=== PATIENT | female | born 1970 | race Caucasian/White ===

== ENCOUNTER 2020-04-04 12:46 | Outpatient (REF) | payer OTHER, SELFPAY ==
--- NOTE | 2020-05-03 | PFT_ITS ---
Forced vital capacity; FEV1, WOT00-00, and MVV are all markedly decreased. Post bronchodilator therapy, there is no significant change. Total lung capacity is slightly decreased. Residual volume normal. Diffusion capacity moderately decreased. CONCLUSION: Chronic obstructive pulmonary disease, severe, no significant response to bronchodilator therapy. There may be a mild degree of restrictive pulmonary disease as well. MD KAL Maldonado/ZABRINA / [id number]
== END 2020-04-04 12:47 | disposition home or self-care (01) ==
LOC: HO.RESP 12:46
PROVIDERS: PCP Internal Medicine Pulmonary Disease; Visit Provider Internal Medicine Pulmonary Disease
DX: J44.9 Chronic obstructive pulmonary disease, unspecified (principal); J96.20 Acute and chronic respiratory failure, unspecified whether with hypoxia or hypercapnia; R11.2 Nausea with vomiting, unspecified
CPT/HCPCS: 94060; 94727; 94729

== ENCOUNTER 2020-04-12 09:31 | Inpatient (IN) | payer OTHER, SELFPAY ==
[2020-04-12] VITALS (20 sets, daily range): BP systolic 125–216; BP diastolic 67–112; PULSE 92–117; RESP 14–28; TEMP 36.4–36.7; O2SAT 91–99; BMI 39.5; BMI 38.0
--- NOTE | 2020-04-12 09:42 | ED.SOB ---
HPI - SOB/Dyspnea General Chief Complaint: Dyspnea Stated Complaint: SOB X'S 2 DAYS W/ R RIB PAIN Time Seen by Provider: 04/12/20 09:42 Source: patient and EMS Mode of arrival: EMS Limitations: no limitations History of Present Illness MD elicited complaint: shortness of breath Pertinent past history: COPD Onset (ago): day(s) (2) Context: medication noncompliance, smoke/fume exposure and anxiety Timing: constant Severity: moderate Exacerbating factors: exertion and coughing Relieving factors: rest and bronchodilators Known history of: COPD Associated symptoms: cough, wheezing and sputum production Treatment prior to arrival: bronchodilator and other (EMS notes 99% on RA, walked out to ambulance smoking) Related Data Home Medications Medication Instructions Recorded Confirmed albuterol sulfate 90 mcg/actuation 1 puff INHALATION Q4H g 04/08/20 04/09/20 aerosol inhaler alpha lipoic acid 200 mg tablet 200 mg PO DAILY 04/08/20 04/09/20 aspirin 81 mg tablet 81 mg PO DAILY 04/08/20 04/09/20 atorvastatin 80 mg tablet 80 mg PO DAILY 04/08/20 04/09/20 cetirizine 10 mg tablet 10 mg PO DAILY 04/08/20 04/09/20 cholecalciferol (vitamin D3) 50 50 mcg PO DAILY 04/08/20 04/09/20 mcg (2,000 unit) capsule ipratropium 0.5 mg-albuterol 3 mg 3 ml INHALATION Q6H PRN ml 04/08/20 04/09/20 (2.5 mg base)/3 mL nebulization soln metformin 500 mg tablet 500 mg PO DAILY 04/08/20 04/09/20 montelukast 10 mg tablet 10 mg PO DAILY 04/08/20 04/09/20 pantoprazole 40 mg tablet,delayed 40 mg PO BID tab 04/08/20 04/09/20 release carisoprodol 350 mg PO DAILY PRN 04/12/20 dicyclomine 10 mg PO QID PRN 04/12/20 04/12/20 dulaglutide [Trulicity] 0.75 mg SUBCUT QWEEK 04/12/20 04/12/20 furosemide 20 mg PO BID 04/12/20 04/12/20 ibuprofen 800 mg PO BID PRN 04/12/20 04/12/20 lubiprostone [Amitiza] 24 mcg PO BID 04/12/20 04/12/20 metformin 500 mg PO DAILY 04/12/20 04/12/20 prednisone PO PER PKG DIR 04/12/20 tiotropium-olodaterol [Stiolto 2 puff INHALATION DAILY 04/12/20 04/12/20 Respimat] tizanidine 4 mg PO BID PRN 04/12/20 04/12/20 venlafaxine 225 mg PO DAILY 04/12/20 04/12/20 Previous Rx's Medication Instructions Recorded bupropion HCl 300 mg 24 hr tablet, 300 mg PO QAM 30 Days #30 tab 04/04/20 extended release gabapentin 600 mg tablet 600 mg PO QID 30 Days #120 tab 04/04/20 losartan 25 mg tablet 25 mg PO DAILY 90 Days #90 tab 04/04/20 levofloxacin 750 mg tablet 750 mg PO DAILY 7 Days #7 tab 04/08/20 Allergies Allergy/AdvReac Type Severity Reaction Status Date / Time varenicline [From CHANTIX] Allergy Severe ANAPHYLAXIS Unverified 03/17/20 15:56 azithromycin Allergy Unknown Verified 01/27/20 00:00 barium sulfate Allergy Unknown angioedema Verified 01/27/20 00:00 cetirizine Allergy Unknown Verified 01/27/20 00:00 doxycycline Allergy Unknown Verified 01/27/20 00:00 famotidine Allergy Unknown Verified 01/27/20 00:00 linaclotide [Linzess] Allergy Unknown Verified 01/27/20 00:00 Review of Systems Review of Systems: Constitutional : No Fever, No Chills ENT/Mouth : No sore throat, No Rhinorrhea, No Swallowing Difficulty Eyes: No Eye Pain, No Swelling, No Redness Cardiovascular : No Chest Pain, positive SOB, No Orthopnea, no Edema Respiratory : positive Cough, positive Sputum, positive Wheezing, positive dyspnea Gastrointestinal : No Nausea, No Vomiting, No Diarrhea, No abdominal Pain, No Hematochezia, No Melena Genitourinary : No Dysuria, No Urinary Frequency, No Hematuria Musculoskeletal : No joint pain, No Myalgias Skin : No Skin Lesions, No rash Neuro : No Weakness, No Numbness, No Dizziness, No Headache Psych : No Anxiety/Panic, No Depression Heme/Lymph: No Bruising, No Lymphadenopathy Endocrine : No Polyuria, No Polydipsia All other systems reviewed and are negative [facility] Past Medical History Medical History (Updated 04/12/20 @ 12:19 by Amber Reid DO) COPD (chronic obstructive pulmonary disease) Diabetes mellitus GERD (gastroesophageal reflux disease) HTN (hypertension) Obesity (BMI 30-39.9) Obstructive sleep apnea Social History Social History (Updated 04/09/20 @ 14:53 by Adelso Cordero MD) Alcohol intake: never Smoking Status: Current every day smoker Tobacco Type: Cigarette Years Smoked: 44 Advance Directives: No Advance Directives Information Provided: No Physical Exam Vital Signs: Vital Signs: Vital Signs Temp Pulse Resp BP Pulse Ox 04/12/20 12:14 92 18 139/67 94 04/12/20 10:48 100 20 182/77 H 96 04/12/20 09:50 28 H 04/12/20 09:39 97.6 F 93 16 99 Body Mass Index 38.0 Appearance: Alert. Oriented X3. mild acute distress. anxious intermittent shaking and tremors of both hands Eyes: Pupils equal, round and reactive to light. ENT: Pharynx normal. Neck: Normal inspection. Neck supple. CVS: tachycardic heart rate and rhythm. Pulses normal. Respiratory: mild respiratory distress. Breath sounds decreased with exp wheezes, tachypnea Abdomen: Soft and nontender. obese Skin: Skin warm and dry. Normal skin color. Normal skin turgor. Extremities: No lower extremity edema. No calf ttp Neuro: Oriented X 3. No motor deficit. No sensory deficit. Course Reevaluation(s) Reevaluation #1: slightly more somnolent and jumpy will place on bipap and observe, compensated ABG Time: 10:24 Time: 11:23 Reevaluation #3: I feel like the way the patient is presenting and more somnolent (she blames her baclofen she will likely not come off bipap) will repeat ABG and discuss with ICU, Dr. Kessler to admit to the ICU at this time MDM - SOB/Dyspnea MDM Narrative Medical decision making narrative: 49 yo female with COPD on CPAP at home ?compliance called EMS for shortness of breath x 2 days came out 99% on RA and wheezing smoking a cigarette c/o sputum production at this time will need 5mg albuterol neb, IV steroids, labs, cultures, treat as COPD denies fevers or infectious complaints, patient very anxious will give low dose fentanyl to decrease RR briefly and help with anxiety Lab Data Result diagrams: 04/12/20 10:18 04/12/20 10:18 Labs: Lab Results 04/12/20 04/12/20 04/12/20 Range/Units 10:07 10:18 10:18 WBC 16.7 H (4.8-10.8) X10*3/uL RBC 4.80 (4.20-5.50) X10*6/uL Hgb 13.0 (12.0-16.0) g/dl Hct 39.9 (37-47) % MCV 83.1 (80-98) fL MCH 27.1 (27.0-33.0) pg MCHC 32.6 (31.0-35.0) g/dl RDW 15.0 (11.0-16.0) % Plt Count 425 H (160-400) X10*3/uL MPV 9.6 (9.4-12.3) fL Immature Gran % (Auto) 0.5 H (0.0-0.4) % Neut % (Auto) 57.0 (45-73) % Lymph % (Auto) 33.8 (20-40) % [place] % (Auto) 7.4 (2-11) % Eos % (Auto) 0.9 (0-4) % Baso % (Auto) 0.4 (0-2) % Lymph # (Auto) 5.7 H (1.2-4.9) X10*3/uL [place] # (Auto) 1.2 (0.1-1.2) X10*3/uL Eos # (Auto) 0.2 (0.0-0.4) X10*3/uL Baso # (Auto) 0.1 (0.0-0.2) X10*3/uL Abs Immat Gran (auto) 0.08 H (0.00-0.03) X10*3/uL Absolute Neuts (auto) 9.6 H (2.0-8.3) X10*3/uL Absolute Nucleated RBC 0.000 (0.0-0.012) X10*3/uL Nucleated RBC % (auto) 0.0 (0.0-0.2) /100WBC Smear Tech's Comments VERIFIED Hold Blue Top SEE NOTE ABG pH 7.36 (7.35-7.45) ABG pCO2 55 H (32-45) mmhg ABG pO2 70 L (83-108) mmhg ABG HCO3 30 H (22-26) mmol/l ABG O2 Saturation 94.1 % ABG Base Excess 3.2 Oxygen Given ROOM AIR Sodium (135-145) mmol/L Potassium (3.3-5.1) mmol/l Chloride (96-108) mmol/L Carbon Dioxide (22-29) mmol/L Anion Gap (12-20) BUN (9-16) mg/dL Creatinine (0.5-1.4) mg/dL Estim Creat Clear Calc Estimated GFR Random Glucose (60-115) mg/dL Lactic Acid (0.5-2.0) mmol/L Calcium (8.4-10.2) mg/dL Magnesium (1.6-2.6) mg/dL Total Bilirubin (0.0-1.0) mg/dL Direct Bilirubin (0.0-0.5) mg/dL AST (5-31) U/L ALT (0-31) U/L Alkaline Phosphatase (39-117) U/L Troponin I High Sens (<3.5-17.0) ng/L B-Natriuretic Peptide (<100) pg/mL Total Protein (6.5-8.0) g/dL Albumin (3.5-5.0) g/dL Lipase (8-78) U/L 04/12/20 04/12/20 04/12/20 Range/Units 10:18 10:18 10:18 WBC (4.8-10.8) X10*3/uL RBC (4.20-5.50) X10*6/uL Hgb (12.0-16.0) g/dl Hct (37-47) % MCV (80-98) fL MCH (27.0-33.0) pg MCHC (31.0-35.0) g/dl RDW (11.0-16.0) % Plt Count (160-400) X10*3/uL MPV (9.4-12.3) fL Immature Gran % (Auto) (0.0-0.4) % Neut % (Auto) (45-73) % Lymph % (Auto) (20-40) % [place] % (Auto) (2-11) % Eos % (Auto) (0-4) % Baso % (Auto) (0-2) % Lymph # (Auto) (1.2-4.9) X10*3/uL [place] # (Auto) (0.1-1.2) X10*3/uL Eos # (Auto) (0.0-0.4) X10*3/uL Baso # (Auto) (0.0-0.2) X10*3/uL Abs Immat Gran (auto) (0.00-0.03) X10*3/uL Absolute Neuts (auto) (2.0-8.3) X10*3/uL Absolute Nucleated RBC (0.0-0.012) X10*3/uL Nucleated RBC % (auto) (0.0-0.2) /100WBC Smear Tech's Comments Hold Blue Top ABG pH (7.35-7.45) ABG pCO2 (32-45) mmhg ABG pO2 (83-108) mmhg ABG HCO3 (22-26) mmol/l ABG O2 Saturation % ABG Base Excess Oxygen Given Sodium 139 (135-145) mmol/L Potassium 4.5 (3.3-5.1) mmol/l Chloride 100 (96-108) mmol/L Carbon Dioxide 27 (22-29) mmol/L Anion Gap 17 (12-20) BUN 15 (9-16) mg/dL Creatinine 0.69 (0.5-1.4) mg/dL Estim Creat Clear Calc 95.4 Estimated GFR > 60 Random Glucose 215 H (60-115) mg/dL Lactic Acid 1.1 (0.5-2.0) mmol/L Calcium 9.4 (8.4-10.2) mg/dL Magnesium 1.6 (1.6-2.6) mg/dL Total Bilirubin 0.4 (0.0-1.0) mg/dL Direct Bilirubin < 0.2 (0.0-0.5) mg/dL AST 13 (5-31) U/L ALT 13 (0-31) U/L Alkaline Phosphatase 111 (39-117) U/L Troponin I High Sens 6.4 (<3.5-17.0) ng/L B-Natriuretic Peptide 46 (<100) pg/mL Total Protein 6.7 (6.5-8.0) g/dL Albumin 4.1 (3.5-5.0) g/dL Lipase 20 (8-78) U/L // Range/Units 11:58 WBC (4.8-10.8) X10*3/uL RBC (4.20-5.50) X10*6/uL Hgb (12.0-16.0) g/dl Hct (37-47) % MCV (80-98) fL MCH (27.0-33.0) pg MCHC (31.0-35.0) g/dl RDW (11.0-16.0) % Plt Count (160-400) X10*3/uL MPV (9.4-12.3) fL Immature Gran % (Auto) (0.0-0.4) % Neut % (Auto) (45-73) % Lymph % (Auto) (20-40) % [place] % (Auto) (2-11) % Eos % (Auto) (0-4) % Baso % (Auto) (0-2) % Lymph # (Auto) (1.2-4.9) X10*3/uL [place] # (Auto) (0.1-1.2) X10*3/uL Eos # (Auto) (0.0-0.4) X10*3/uL Baso # (Auto) (0.0-0.2) X10*3/uL Abs Immat Gran (auto) (0.00-0.03) X10*3/uL Absolute Neuts (auto) (2.0-8.3) X10*3/uL Absolute Nucleated RBC (0.0-0.012) X10*3/uL Nucleated RBC % (auto) (0.0-0.2) /100WBC Smear Tech's Comments Hold Blue Top ABG pH 7.33 L (7.35-7.45) ABG pCO2 51 H (32-45) mmhg ABG pO2 72 L (83-108) mmhg ABG HCO3 27 H (22-26) mmol/l ABG O2 Saturation 94.1 % ABG Base Excess -0.2 Oxygen Given 40% Sodium (135-145) mmol/L Potassium (3.3-5.1) mmol/l Chloride (96-108) mmol/L Carbon Dioxide (22-29) mmol/L Anion Gap (12-20) BUN (9-16) mg/dL Creatinine (0.5-1.4) mg/dL Estim Creat Clear Calc Estimated GFR Random Glucose (60-115) mg/dL Lactic Acid (0.5-2.0) mmol/L Calcium (8.4-10.2) mg/dL Magnesium (1.6-2.6) mg/dL Total Bilirubin (0.0-1.0) mg/dL Direct Bilirubin (0.0-0.5) mg/dL AST (5-31) U/L ALT (0-31) U/L Alkaline Phosphatase (39-117) U/L Troponin I High Sens (<3.5-17.0) ng/L B-Natriuretic Peptide (<100) pg/mL Total Protein (6.5-8.0) g/dL Albumin (3.5-5.0) g/dL Lipase (8-78) U/L ECG Data Attestation: I personally reviewed and interpreted this ECG as follows: ECG interpretation date: 04/12/20 ECG interpretation time: 10:15 Interpretation: Rate: 90 Rhythm: NSR [place]: normal Normal P waves. Normal RADU. decreased QRS complex. ST T wave : nonspecific qTC: normal prior studies: no acute ischemia The study has been interpreted contemporaneously by me. . Critical Care Time Critical Care Time Critical Care Time: Yes Total Critical Care Time: 90 Attestation: repeat blood gas, repeat nebs, review of records, medical consult, bipap management Discharge Plan Discharge Clinical Impression: COPD (chronic obstructive pulmonary disease), Respiratory failure Patient Disposition: Admitted As Inpatient Prescriptions: No Action bupropion HCl 300 mg tablet extended release 24 hr 300 mg PO QAM 30 Days Qty: 30 RF: 2 gabapentin 600 mg tablet 600 mg PO QID 30 Days Qty: 120 RF: 0 losartan 25 mg tablet 25 mg PO DAILY 90 Days Qty: 90 RF: 0 ibuprofen 800 mg Tablet 800 mg PO BID PRN (Reason: Pain (Scale Score 1-3)) RF: 0 tizanidine 4 mg Tablet 4 mg PO BID PRN (Reason: Muscle Spasm) RF: 0 furosemide 20 mg Tablet 20 mg PO BID RF: 0 metformin 500 mg Tablet Extended Release 24 Hr 500 mg PO DAILY RF: 0 dicyclomine 10 mg Capsule 10 mg PO QID PRN (Reason: Abdominal Discomfort) RF: 0 Amitiza 24 mcg Capsule 24 mcg PO BID RF: 0 venlafaxine 225 mg Tablet Extended Release 24hr 225 mg PO DAILY RF: 0 Trulicity 0.75 mg/0.5 mL Pen Injector 0.75 mg SUBCUT QWEEK RF: 0 Stiolto Respimat 2.5-2.5 mcg/actuation Mist 2 puff INHALATION DAILY RF: 0 carisoprodol 350 mg tablet 350 mg PO DAILY PRN (Reason: Muscle Spasm) RF: 0 prednisone 10 mg tablets,dose pack PO PER PKG DIR RF: 0 ipratropium-albuterol 0.5 mg-3 mg(2.5 mg base)/3 mL solution for nebulization 3 ml inhalation Q6H PRNRF: 0 alpha lipoic acid 200 mg tablet 200 mg PO DAILY RF: 0 montelukast [Singulair] 10 mg tablet 10 mg PO DAILY RF: 0 cholecalciferol (vitamin D3) 50 mcg (2,000 unit) capsule 50 mcg PO DAILY RF: 0 metformin 500 mg tablet 500 mg PO DAILY RF: 0 atorvastatin 80 mg tablet 80 mg PO DAILY RF: 0 aspirin 81 mg tablet 81 mg PO DAILY RF: 0 cetirizine 10 mg tablet 10 mg PO DAILY RF: 0 albuterol sulfate 90 mcg/actuation HFA aerosol inhaler 2 puff inhalation Q6H PRN (Reason: Shortness Of Breath) RF: 0 pantoprazole 40 mg tablet,delayed release (DR/EC) 40 mg PO BID RF: 0 levofloxacin 750 mg tablet 750 mg PO DAILY 7 Days Qty: 7 RF: 0
--- NOTE | 2020-04-12 09:43 | XR_ITS ---
EXAMINATION: XR CHEST CLINICAL INFORMATION: Dyspnea. COMPARISON: None. TECHNIQUE: Frontal view of the chest was obtained. FINDINGS: Rotated positioning. Cardiomediastinal silhouette is within normal limits. Slightly low lung volumes. There is vascular prominence present. No pulmonary edema. Mild left greater than right basilar opacity, which could represent atelectasis or infiltrate. No pleural effusion or pneumothorax. Old left rib fractures. No acute osseous abnormality seen. IMPRESSION: Central vascular prominence without overt pulmonary edema. Bibasilar opacities from atelectasis/infiltrate.
--- NOTE | 2020-04-12 09:44 | ECG_ITS ---
Test Reason : ANXIETY Blood Pressure : / mmHG Vent. Rate : 090 BPM Atrial Rate : 090 BPM P-R Int : 124 ms QRS Dur : 082 ms QT Int : 358 ms P-R-T Axes : 048 065 061 degrees QTc Int : 437 ms Normal sinus rhythm QRS Of low voltage Normal ECG When compared with ECG of 20-JUL-2019 05:36, No significant change was found Referred By: Amber Reid Electronically Signed By:[email or web address] MACIEL MD
[2020-04-12] MEDS: methylPREDNISolone Sod Succ/PF 125 MG/2 ML VIAL 60 MG IVPUSH (09:49)
[2020-04-12] MEDS: fentaNYL citrate/PF 100 MCG/2 ML VIAL 25 MCG IVPUSH (09:50)
[2020-04-12] MEDS: Albuterol Sulfate (0.083%) 2.5 MG/3 ML VIAL.NEB 5 MG INHALE (09:50)
[2020-04-12] MEDS: ondansetron HCL 4 MG/2 ML VIAL IVPUSH (09:50)
[2020-04-12 10:11] LABS: Pt Ventilation O2% ROOM AIR
[2020-04-12 10:15] LABS: ABG PCO2 55 mmhg (32-45); Base Excess ABG 3.2; HCO3 ABG 30 mmol/l (22-26); Oxygen Saturation ABG 94.1 %; PO2 ABG 70 mmhg (83-108); pH ABG 7.36 (7.35-7.45)
[2020-04-12 10:28] LABS: Basophils Absolute Auto 0.1 X10*3/uL (0.0-0.2); Basophils Percent Auto 0.4 % (0-2); Eosinophils Absolute Auto 0.2 X10*3/uL (0.0-0.4); Eosinophils Percent Auto 0.9 % (0-4); Hematocrit 39.9 % (37-47); Imm Gran Abs Auto 0.08 X10*3/uL (0.00-0.03); Imm Gran Pct Auto 0.5 % (0.0-0.4); Lymphocytes Absolute Auto 5.7 X10*3/uL (1.2-4.9); Lymphocytes Percent Auto 33.8 % (20-40); MANUAL DIFF FLAG SCAN; Mean Corpuscular HGB Conc 32.6 g/dl (31.0-35.0); Mean Corpuscular Hemoglobin 27.1 pg (27.0-33.0); Mean Corpuscular Volume 83.1 fL (80-98); Mean Platelet Volume 9.6 fL (9.4-12.3); Monocytes Absolute Auto 1.2 X10*3/uL (0.1-1.2); Monocytes Percent Auto 7.4 % (2-11); Neutrophils Absolute Auto 9.6 X10*3/uL (2.0-8.3); Platelet Count 425 X10*3/uL (160-400); SCAN SMEAR FLAG 1; White Blood Count 16.7 X10*3/uL (4.8-10.8)
[2020-04-12 10:57] LABS: Lactic Acid 1.1 mmol/L (0.5-2.0)
[2020-04-12 11:02] LABS: Alanine Aminotransferase 13 U/L (0-31); Albumin Level 4.1 g/dL (3.5-5.0); Alkaline Phosphatase 111 U/L (39-117); Anion Gap 17 (12-20); Aspartate Amino Transferase 13 U/L (5-31); Bilirubin Direct < 0.2 mg/dL (0.0-0.5); Bilirubin Total 0.4 mg/dL (0.0-1.0); Blood Urea Nitrogen 15 mg/dL (9-16); Calcium 9.4 mg/dL (8.4-10.2); Carbon Dioxide 27 mmol/L (22-29); Chloride 100 mmol/L (96-108); Creatinine Clr Calc Pharmacy 95.4; Estimated Glomerular Filt Rate > 60; Glucose Random 215 mg/dL (60-115); Lipase 20 U/L (8-78); Magnesium 1.6 mg/dL (1.6-2.6); Potassium 4.5 mmol/l (3.3-5.1); Sodium 139 mmol/L (135-145); Total Protein 6.7 g/dL (6.5-8.0)
[2020-04-12 11:09] LABS: B Type Natriuretic Peptide 46 pg/mL (<100); SLIDE REVIEW VERIFIED; Troponin-I High Sensitivity 6.4 ng/L (<3.5-17.0)
[2020-04-12 12:00] LABS: Pt Ventilation O2% 40%
[2020-04-12 12:07] LABS: ABG PCO2 51 mmhg (32-45); Base Excess ABG -0.2; HCO3 ABG 27 mmol/l (22-26); Oxygen Saturation ABG 94.1 %; PO2 ABG 72 mmhg (83-108); pH ABG 7.33 (7.35-7.45)
[2020-04-12 12:49] LABS: MANUAL DIFF FLAG NO
[2020-04-12 12:49] LABS: Adenovirus PCR Not Detected (Not Detect.); Bordetella parapertussis PCR Not Detected (Not Detect.); Bordetella pertussis PCR Not Detected (Not Detect.); Chlamydia pneumoniae PCR Not Detected (Not Detect.); Coronavirus 229E PCR Not Detected (Not Detect.); Coronavirus HKU1 PCR Not Detected (Not Detect.); Coronavirus NL63 PCR Not Detected (Not Detect.); Coronavirus OC43 PCR Not Detected (Not Detect.); Human metapneumovirus PCR Not Detected (Not Detect.); Influenza A PCR Not Detected (Not Detect.); Influenza B PCR Not Detected (Not Detect.); Mycoplasma pneumoniae PCR Not Detected (Not Detect.); Parainfluenza 1 PCR Not Detected (Not Detect.); Parainfluenza 2 PCR Not Detected (Not Detect.); Parainfluenza 3 PCR Not Detected (Not Detect.); Parainfluenza 4 PCR Not Detected (Not Detect.); RSV PCR Not Detected (Not Detect.); Rhino/Enterovirus PCR Not Detected (Not Detect.); SARS-CoV-2 PCR Not Detected (Not Detect.)
[2020-04-12] MEDS: levoFLOXacin/D5W 500 MG/100 ML PIGGYBACK 100 MG IV (12:49)
[2020-04-12 12:53] LABS: Basophils Percent Auto 0.3 % (0-2); Eosinophils Percent Auto 0.3 % (0-4); Hematocrit 42.1 % (37-47); Hemoglobin 13.2 g/dl (12.0-16.0); Imm Gran Pct Auto 0.6 % (0.0-0.4); Lymphocytes Absolute Auto 1.6 X10*3/uL (1.2-4.9); Lymphocytes Percent Auto 10.2 % (20-40); Mean Corpuscular HGB Conc 31.4 g/dl (31.0-35.0); Mean Corpuscular Hemoglobin 26.2 pg (27.0-33.0); Mean Corpuscular Volume 83.7 fL (80-98); Mean Platelet Volume 9.5 fL (9.4-12.3); Monocytes Absolute Auto 0.3 X10*3/uL (0.1-1.2); Neutrophils Absolute Auto 13.7 X10*3/uL (2.0-8.3); Neutrophils Percent Auto 86.6 % (45-73); Platelet Count 421 X10*3/uL (160-400); Red Blood Count 5.03 X10*6/uL (4.20-5.50); White Blood Count 15.8 X10*3/uL (4.8-10.8)
[2020-04-12 12:55] LABS: Base Excess VBG 1.7 mmol/L; HCO3 VBG 29 mmol/L; Oxygen Saturation VBG 94.6 %; PCO2 VBG 55 mmhg; PO2 VBG 75 mmhg; pH VBG 7.33 (7.32-7.43)
[2020-04-12 13:17] LABS: Albumin Level 4.2 g/dL (3.5-5.0); Anion Gap 13 (12-20); Blood Urea Nitrogen 15 mg/dL (9-16); Calcium 9.3 mg/dL (8.4-10.2); Carbon Dioxide 30 mmol/L (22-29); Chloride 100 mmol/L (96-108); Creatinine Clr Calc Pharmacy 91.5; Estimated Glomerular Filt Rate > 60; Glucose Random 308 mg/dL (60-115); Magnesium 1.7 mg/dL (1.6-2.6); Potassium 4.5 mmol/l (3.3-5.1); Sodium 138 mmol/L (135-145)
[2020-04-12] MEDS: Albuterol/Iprat 2.5/0.5MG 3 ML AMPUL.NEB INHALE ×2 (14:13→21:27)
[2020-04-12] MEDS: Heparin Sodium,Porcine 5,000 UNIT/ML VIAL 5000 UNIT SUBCUT ×2 (15:21→22:02)
[2020-04-12] MEDS: 0.9 % Sodium Chloride Flush 3 ML SYRINGE IVFLUSH (15:22)
--- NOTE | 2020-04-12 16:23 | P.HPCC_ITS ---
History of Present Illness Date of Service: 04/12/20 Chief Complaint: shortness of breath 49-year-old lady, active 20+ pack-year smoker, with underlying history of asthma / COPD overlap syndrome, HENRY, hypertension, diabetes mellitus, congestive heart failure, depression admitted on 04/12/2020 with 2-day history of worsening dyspnea. On ER evaluation patient was noted to be in acute exacerbation of underlying COPD resulting in acute on chronic hypoxic and hypercapnic respiratory failure requiring BiPAP support. She has been started on nebulized bronchodilators and systemic glucocorticoids and admitted to intensive care unit. Review of Systems Constitutional: Constitutional: Reports fatigue and Reports snoring Eyes: Eyes: Denies change in vision and Denies diplopia ENT: Denies dizziness Cardiovascular: Cardiovascular: Denies chest pain, Denies syncope, Denies edema and Reports dyspnea Respiratory: Respiratory: Reports dyspnea, Reports snoring and Reports wheezing Gastrointestinal: Gastrointestinal: Denies abdominal pain, Denies constipation and Denies diarrhea Genitourinary: Genitourinary: Denies hematuria and Denies dysuria Integumentary/Breasts: Skin/Breast: Denies rash Neurologic: Denies dizziness and Denies syncope Psychiatric: Psychiatric: Reports depression Endocrine: Endocrine: Denies cold intolerance, Reports fatigue and Denies heat intolerance Hematologic/Lymphatic: Hematologic/Lymphatic: Denies easy bleeding and Denies easy bruising Allergic/Immunologic: Allergic/Immunologic: Reports wheezing PMFSH Past Medical History Medical History COPD (chronic obstructive pulmonary disease) Diabetes mellitus GERD (gastroesophageal reflux disease) HTN (hypertension) Obesity (BMI 30-39.9) Obstructive sleep apnea Social History Social History Household Members: Family Housing: House Do you presently have visiting nurse or other home services: No Alcohol intake: never Smoking Status: Current every day smoker Tobacco Type: Cigarette Packs Per Day: 1 Cigarettes Per Day: 20.0 Years Smoked: 30 Smoked in Last 30 Days: Yes Patient Interested in Nicotine Replacement: Yes Patient Given Instructions on How to Stop Smoking: Yes Date Education Initiated: 04/12/20 Second Hand Smoke Exposure: Yes Use of substances other than those prescribed or required for medical reasons: Yes Substance Use Type: Crack/Cocaine Substance Use Frequency: Weekly Last Used Substance: Days (ago) Currently Displaying Signs/Symptoms of Drug Intoxication Withdrawal: No Any prior treatment program specific to substance use: No Have you been hit, kicked, punched, or otherwise hurt by someone within the past year? If so, by whom?: No Do you feel safe in your current relationship?: Yes Is there a partner from a previous relationship who is making you feel unsafe now?: No Are you made to feel afraid or neglected: No Spiritual Healthcare Practices: no Judaism Healthcare Practices: no Cultural Healthcare Practices: no Advance Directives: No Advance Directives Information Provided: Yes Advance Directives on File: No Do you have thoughts of harming others: None Do you have a plan to hurt others: No Plan Recently lost weight without trying: No Meds Allergies Allergy/AdvReac Type Severity Reaction Status Date / Time varenicline [From CHANTIX] Allergy Severe ANAPHYLAXIS Unverified 03/17/20 15:56 azithromycin Allergy Unknown Verified 01/27/20 00:00 barium sulfate Allergy Unknown angioedema Verified 01/27/20 00:00 cetirizine Allergy Unknown Verified 01/27/20 00:00 doxycycline Allergy Unknown Verified 01/27/20 00:00 famotidine Allergy Unknown Verified 01/27/20 00:00 linaclotide [Linzess] Allergy Unknown Verified 01/27/20 00:00 Home Medications Medication Instructions Recorded Confirmed Type albuterol sulfate 90 mcg/actuation 2 puff INHALATION Q6H PRN g 04/08/20 04/12/20 History aerosol inhaler alpha lipoic acid 200 mg tablet 400 mg PO DAILY 04/08/20 04/12/20 History atorvastatin 80 mg tablet 80 mg PO DAILY 04/08/20 04/12/20 History cetirizine 10 mg tablet 10 mg PO DAILY 04/08/20 04/12/20 History cholecalciferol (vitamin D3) 50 50 mcg PO DAILY 04/08/20 04/12/20 History mcg (2,000 unit) capsule montelukast 10 mg tablet 10 mg PO BEDTIME 04/08/20 04/12/20 History aspirin 81 mg PO DAILY 04/12/20 04/12/20 History carisoprodol 350 mg PO DAILY PRN 04/12/20 04/12/20 History dicyclomine 10 mg PO QID PRN 04/12/20 04/12/20 History dulaglutide [Trulicity] 0.75 mg SUBCUT QWEEK 04/12/20 04/12/20 History furosemide 20 mg PO BID 04/12/20 04/12/20 History ibuprofen 800 mg PO BID PRN 04/12/20 04/12/20 History ipratropium-albuterol [DuoNeb] 3 ml INHALATION TID 04/12/20 04/12/20 History lubiprostone [Amitiza] 24 mcg PO BID 04/12/20 04/12/20 History metformin 500 mg PO QPM 04/12/20 04/12/20 History prednisone mg PO DAILY 04/12/20 History tiotropium-olodaterol [Stiolto 2 puff INHALATION DAILY 04/12/20 04/12/20 History Respimat] tizanidine 4 mg PO BID PRN 04/12/20 04/12/20 History venlafaxine 225 mg PO DAILY 04/12/20 04/12/20 History Physical Exam Vital Signs: Vital Signs: Vital Signs Temp Pulse Resp BP Pulse Ox 04/12/20 16:00 97.6 F 111 H 16 202/110 H 93 04/12/20 15:00 92 20 165/107 H 91 L 04/12/20 13:57 103 H 21 H 147/81 H 92 04/12/20 12:55 98 17 158/82 H 95 04/12/20 12:14 92 18 139/67 94 04/12/20 10:48 100 20 182/77 H 96 04/12/20 09:50 28 H 04/12/20 09:39 97.6 F 93 16 99 Body Mass Index 38.0 Const: General: no acute distress, alert and awake Eyes: Sclerae: sclerae normal EOM: EOMs intact bilaterally Neck: Neck: Yes no lymphadenopathy, Yes trachea midline and Yes supple Resp: Effort & Inspection: normal respiratory effort and no respiratory distress Auscultation: wheezes ( bilateral expiratory) Cardio: Rate: regular rate Rhythm: regular rhythm Heart sounds: no gallops, no murmurs and no rubs GI: Palpation (GI): Soft to palpation and Other GI palpation findings present ( Nontender) Auscultation: normal bowel sounds Extrem: General: No clubbing, No cyanosis and Yes edema ( trace bilateral) Results Labs Labs: Laboratory Tests 04/12/20 04/12/20 04/12/20 10:07 10:18 10:18 WBC 16.7 H RBC 4.80 Hgb 13.0 Hct 39.9 MCV 83.1 MCH 27.1 MCHC 32.6 RDW 15.0 Plt Count 425 H MPV 9.6 Immature Gran % (Auto) 0.5 H Neut % (Auto) 57.0 Lymph % (Auto) 33.8 [place] % (Auto) 7.4 Eos % (Auto) 0.9 Baso % (Auto) 0.4 Lymph # (Auto) 5.7 H [place] # (Auto) 1.2 Eos # (Auto) 0.2 Baso # (Auto) 0.1 Abs Immat Gran (auto) 0.08 H Absolute Neuts (auto) 9.6 H Absolute Nucleated RBC 0.000 Nucleated RBC % (auto) 0.0 Smear Tech's Comments VERIFIED Hold Blue Top SEE NOTE ABG pH 7.36 ABG pCO2 55 H ABG pO2 70 L ABG HCO3 30 H ABG O2 Saturation 94.1 ABG Base Excess 3.2 VBG pH VBG pCO2 VBG Oxygen Liters/Min VBG pO2 VBG HCO3 VBG O2 Saturation VBG Base Excess Oxygen Given ROOM AIR Sodium Potassium Chloride Carbon Dioxide Anion Gap BUN Creatinine Estim Creat Clear Calc Estimated GFR Random Glucose Lactic Acid Calcium Magnesium Total Bilirubin Direct Bilirubin AST ALT Alkaline Phosphatase Troponin I High Sens B-Natriuretic Peptide Total Protein Albumin Lipase Respiratory Panel Keys Adenovirus (Rapid PCR) B.pert (TEM-PCR) B.parapertussis DNA PCR C. pneumoniae DNA (PCR) Coronavirus OC43 (PCR) Coronavirus HKU1 (PCR) Coronavirus 229E (PCR) Coronavirus NL63 (PCR) Human Metapneumovir PCR Influenza A (RT-PCR) Influenza B (RT-PCR) M. pneumoniae (PCR) Parainfluenza 1 (PCR) Parainfluenza 2 (PCR) Parainfluenza 3 (PCR) Parainfluenza 4 (PCR) RSV (PCR) Entero/Rhino (PCR) SARS-CoV-2 RNA (RT-PCR) 04/12/20 04/12/20 04/12/20 10:18 10:18 10:18 WBC RBC Hgb Hct MCV MCH MCHC RDW Plt Count MPV Immature Gran % (Auto) Neut % (Auto) Lymph % (Auto) [place] % (Auto) Eos % (Auto) Baso % (Auto) Lymph # (Auto) [place] # (Auto) Eos # (Auto) Baso # (Auto) Abs Immat Gran (auto) Absolute Neuts (auto) Absolute Nucleated RBC Nucleated RBC % (auto) Smear Tech's Comments Hold Blue Top ABG pH ABG pCO2 ABG pO2 ABG HCO3 ABG O2 Saturation ABG Base Excess VBG pH VBG pCO2 VBG Oxygen Liters/Min VBG pO2 VBG HCO3 VBG O2 Saturation VBG Base Excess Oxygen Given Sodium 139 Potassium 4.5 Chloride 100 Carbon Dioxide 27 Anion Gap 17 BUN 15 Creatinine 0.69 Estim Creat Clear Calc 95.4 Estimated GFR > 60 Random Glucose 215 H Lactic Acid 1.1 Calcium 9.4 Magnesium 1.6 Total Bilirubin 0.4 Direct Bilirubin < 0.2 AST 13 ALT 13 Alkaline Phosphatase 111 Troponin I High Sens 6.4 B-Natriuretic Peptide 46 Total Protein 6.7 Albumin 4.1 Lipase 20 Respiratory Panel Keys Adenovirus (Rapid PCR) B.pert (TEM-PCR) B.parapertussis DNA PCR C. pneumoniae DNA (PCR) Coronavirus OC43 (PCR) Coronavirus HKU1 (PCR) Coronavirus 229E (PCR) Coronavirus NL63 (PCR) Human Metapneumovir PCR Influenza A (RT-PCR) Influenza B (RT-PCR) M. pneumoniae (PCR) Parainfluenza 1 (PCR) Parainfluenza 2 (PCR) Parainfluenza 3 (PCR) Parainfluenza 4 (PCR) RSV (PCR) Entero/Rhino (PCR) SARS-CoV-2 RNA (RT-PCR) 04/12/20 04/12/20 04/12/20 11:58 12:37 12:44 WBC 15.8 H RBC 5.03 Hgb 13.2 Hct 42.1 MCV 83.7 MCH 26.2 L MCHC 31.4 RDW 15.0 Plt Count 421 H MPV 9.5 Immature Gran % (Auto) 0.6 H Neut % (Auto) 86.6 H Lymph % (Auto) 10.2 L [place] % (Auto) 2.0 Eos % (Auto) 0.3 Baso % (Auto) 0.3 Lymph # (Auto) 1.6 [place] # (Auto) 0.3 Eos # (Auto) 0.0 Baso # (Auto) 0.0 Abs Immat Gran (auto) 0.10 H Absolute Neuts (auto) 13.7 H Absolute Nucleated RBC 0.000 Nucleated RBC % (auto) 0.0 Smear Tech's Comments Hold Blue Top ABG pH 7.33 L ABG pCO2 51 H ABG pO2 72 L ABG HCO3 27 H ABG O2 Saturation 94.1 ABG Base Excess -0.2 VBG pH VBG pCO2 VBG Oxygen Liters/Min VBG pO2 VBG HCO3 VBG O2 Saturation VBG Base Excess Oxygen Given 40% Sodium Potassium Chloride Carbon Dioxide Anion Gap BUN Creatinine Estim Creat Clear Calc Estimated GFR Random Glucose Lactic Acid Calcium Magnesium Total Bilirubin Direct Bilirubin AST ALT Alkaline Phosphatase Troponin I High Sens B-Natriuretic Peptide Total Protein Albumin Lipase Respiratory Panel Keys See Note Adenovirus (Rapid PCR) Not Detected B.pert (TEM-PCR) Not Detected B.parapertussis DNA PCR Not Detected C. pneumoniae DNA (PCR) Not Detected Coronavirus OC43 (PCR) Not Detected Coronavirus HKU1 (PCR) Not Detected Coronavirus 229E (PCR) Not Detected Coronavirus NL63 (PCR) Not Detected Human Metapneumovir PCR Not Detected Influenza A (RT-PCR) Not Detected Influenza B (RT-PCR) Not Detected M. pneumoniae (PCR) Not Detected Parainfluenza 1 (PCR) Not Detected Parainfluenza 2 (PCR) Not Detected Parainfluenza 3 (PCR) Not Detected Parainfluenza 4 (PCR) Not Detected RSV (PCR) Not Detected Entero/Rhino (PCR) Not Detected SARS-CoV-2 RNA (RT-PCR) Not Detected 04/12/20 04/12/20 12:44 12:44 WBC RBC Hgb Hct MCV MCH MCHC RDW Plt Count MPV Immature Gran % (Auto) Neut % (Auto) Lymph % (Auto) [place] % (Auto) Eos % (Auto) Baso % (Auto) Lymph # (Auto) [place] # (Auto) Eos # (Auto) Baso # (Auto) Abs Immat Gran (auto) Absolute Neuts (auto) Absolute Nucleated RBC Nucleated RBC % (auto) Smear Tech's Comments Hold Blue Top ABG pH ABG pCO2 ABG pO2 ABG HCO3 ABG O2 Saturation ABG Base Excess VBG pH 7.33 VBG pCO2 55 VBG Oxygen Liters/Min TNP VBG pO2 75 VBG HCO3 29 VBG O2 Saturation 94.6 VBG Base Excess 1.7 Oxygen Given Sodium 138 Potassium 4.5 Chloride 100 Carbon Dioxide 30 H Anion Gap 13 BUN 15 Creatinine 0.72 Estim Creat Clear Calc 91.5 Estimated GFR > 60 Random Glucose 308 H D Lactic Acid Calcium 9.3 Magnesium 1.7 Total Bilirubin Direct Bilirubin AST ALT Alkaline Phosphatase Troponin I High Sens B-Natriuretic Peptide Total Protein Albumin 4.2 Lipase Respiratory Panel Keys Adenovirus (Rapid PCR) B.pert (TEM-PCR) B.parapertussis DNA PCR C. pneumoniae DNA (PCR) Coronavirus OC43 (PCR) Coronavirus HKU1 (PCR) Coronavirus 229E (PCR) Coronavirus NL63 (PCR) Human Metapneumovir PCR Influenza A (RT-PCR) Influenza B (RT-PCR) M. pneumoniae (PCR) Parainfluenza 1 (PCR) Parainfluenza 2 (PCR) Parainfluenza 3 (PCR) Parainfluenza 4 (PCR) RSV (PCR) Entero/Rhino (PCR) SARS-CoV-2 RNA (RT-PCR) Assessment and Plan (1) Acute and chronic respiratory failure, unspecified whether with hypoxia or hypercapnia: Status: Acute (2) HENRY (obstructive sleep apnea): Status: Acute (3) COPD exacerbation: Status: Acute (4) Diabetes mellitus: Status: Acute Assessment: 49-year-old lady with underlying history of obesity, HENRY, asthma / COPD overlap syndrome admitted with acute on chronic hypoxic and hypercapnic respiratory failure secondary to exacerbation of underlying COPD. Plan: Neuro: No acute issues. Cardiac: no acute issues Pulmonary: Acute on chronic hypoxic and hypercapnic respiratory failure secondary to exacerbation of underlying COPD. Continue to titrate off BiPAP support as tolerated. Continue with nebulized bronchodilators and systemic glucocorticoids. Patient requires nocturnal CPAP support for underlying HENRY. Renal: No acute issues. Endo: No acute issues. Underlying diabetes mellitus. GI: No acute issues. ID: No acute issues Heme/Onc: No acute issues. Psych: No acute issues. Miscellaneous: No acute issues. Prophylaxis: Heparin Diet: diabetic Critical care time spent: 60 minutes Critical Care Time Critical Care Time (minutes): 60
[2020-04-12] MEDS: hydrALAZINE HCl 20 MG/ML VIAL 10 MG IVPUSH (16:54)
[2020-04-12 17:46] LABS: Amphetamine Screen Urine Not Detected (Not Detect); Barbiturates, Urine Not Detected (Not Detect); Benzodiazepines Screen Urine Not Detected (Not Detect); Cannabinoid Screen Urine Not Detected (Not Detect); Cocaine Screen Urine POSITIVE (Not Detect); Opiate Screen Urine Not Detected (Not Detect); Phencyclidine Screen Urine Not Detected (Not Detect)
[2020-04-12] MEDS: Insulin Lispro 100 UNIT/ML 3 ML VIAL SUBCUT ×2 (18:01→21:59)
[2020-04-12 18:03] LABS: Glucose, Whole Blood 345 mg/dL (60-115)
--- NOTE | 2020-04-12 18:09 | PC.NURSE ---
1655 BP 216/112 - Patient assymptomatic - MD notified - Hydralazine 10mg IVP ordered and admnistered - 1757 BP down to 164/90. Will continue to monitor.
[2020-04-12 21:20] LABS: Glucose, Whole Blood 331 mg/dL (60-115)
[2020-04-13] VITALS (15 sets, daily range): BP systolic 119–155; BP diastolic 63–104; PULSE 62–97; RESP 14–24; TEMP 35.7–37; O2SAT 91–99; BMI 38.0
[2020-04-13] MEDS: 0.9 % Sodium Chloride Flush 3 ML SYRINGE IVFLUSH ×4 (00:01→20:36)
[2020-04-13] MEDS: Heparin Sodium,Porcine 5,000 UNIT/ML VIAL 5000 UNIT SUBCUT ×3 (06:04→20:33)
--- NOTE | 2020-04-13 06:40 | PC.NURSE ---
PT A&O X3. HAS HIGH ANXIETY ON A NORMAL BASIS PER PT. TALKS A LOT AND IS JUMPY/RESTLESS IN BED. NO RESP DISTRESS AT REST. SLIGHT DYSPNEA ON EXERTION. O2 ON AT 1L VIA NC. PUT BIPAP ON AT 0100 AT 15/5 AND 25%. WORE IT FOR APPROX 2HR UNTIL SHE PULLED IT OFF AND REFUSED TO NOT WEAR IT AGAIN. O2 SATS MAINTAINED OVER 92% ON NASAL CANNULA. PRECAUTIONS INSTITUTED FOR SHINGLES, AIR[place]ORNE AND CONTACT. PT SEEN BY MILAN FELDER WHO VIEWED RASH ON STOMACH AND BACK. PT STARTED ON ACYCLOVIR.
[2020-04-13 06:48] LABS: Base Excess VBG 5.6 mmol/L; HCO3 VBG 32 mmol/L; Oxygen Saturation VBG 92.3 %; PCO2 VBG 55 mmhg; PO2 VBG 65 mmhg; pH VBG 7.39 (7.32-7.43)
[2020-04-13 06:53] LABS: Basophils Percent Auto 0.2 % (0-2); Eosinophils Percent Auto 0.3 % (0-4); Hematocrit 38.1 % (37-47); Hemoglobin 12.1 g/dl (12.0-16.0); Imm Gran Abs Auto 0.04 X10*3/uL (0.00-0.03); Imm Gran Pct Auto 0.3 % (0.0-0.4); Lymphocytes Absolute Auto 4.2 X10*3/uL (1.2-4.9); Lymphocytes Percent Auto 32.8 % (20-40); MANUAL DIFF FLAG SCAN; Mean Corpuscular HGB Conc 31.8 g/dl (31.0-35.0); Mean Corpuscular Hemoglobin 26.4 pg (27.0-33.0); Mean Corpuscular Volume 83.2 fL (80-98); Mean Platelet Volume 9.6 fL (9.4-12.3); Monocytes Absolute Auto 0.8 X10*3/uL (0.1-1.2); Monocytes Percent Auto 6.4 % (2-11); Neutrophils Absolute Auto 7.6 X10*3/uL (2.0-8.3); Platelet Count 408 X10*3/uL (160-400); Red Blood Count 4.58 X10*6/uL (4.20-5.50); Red Cell Distribution Width 15.1 % (11.0-16.0); SCAN SMEAR FLAG 1; White Blood Count 12.7 X10*3/uL (4.8-10.8)
[2020-04-13 07:11] LABS: Glucose, Whole Blood 217 mg/dL (60-115)
[2020-04-13 07:14] LABS: Albumin Level 3.7 g/dL (3.5-5.0); Anion Gap 11 (12-20); Blood Urea Nitrogen 17 mg/dL (9-16); Calcium 8.9 mg/dL (8.4-10.2); Carbon Dioxide 32 mmol/L (22-29); Chloride 98 mmol/L (96-108); Creatinine Clr Calc Pharmacy 102.9; Estimated Glomerular Filt Rate > 60; Glucose Random 234 mg/dL (60-115); Phosphorus 4.3 mg/dL (2.7-4.5); Potassium 3.9 mmol/l (3.3-5.1); Sodium 137 mmol/L (135-145)
[2020-04-13 07:41] LABS: SLIDE REVIEW VERIFIED
[2020-04-13] MEDS: Albuterol/Iprat 2.5/0.5MG 3 ML AMPUL.NEB INHALE ×3 (07:47→20:00)
[2020-04-13] MEDS: Insulin Lispro 100 UNIT/ML 3 ML VIAL SUBCUT ×4 (07:51→20:33)
[2020-04-13] MEDS: traMADoL HCL 50 MG TABLET PO ×3 (08:48→21:27)
[2020-04-13 09:39] LABS: Magnesium 1.8 mg/dL (1.6-2.6)
[2020-04-13] MEDS: predniSONE 20 MG TABLET 40 MG PO (10:21)
--- NOTE | 2020-04-13 11:11 | MHC.CM.PN ---
pt has najma/insole buffer who is her dgaughter pt does ot anticaote needing addiotnal servceia when dcd
[2020-04-13 11:44] LABS: Glucose, Whole Blood 159 mg/dL (60-115)
--- NOTE | 2020-04-13 13:33 | PM.EVENT ---
Event Note Event Note: patient already been seen by ICU- getting transfer from ICU. Says her shortness of breath is improving physical exam: cvs: rrr, [id number] , no murmur res: air entry seems slightly fair today, few scattered rhonchi abd: no rebound or guarding ,nt, bs present. ext pulses present , no cyanosis neuro: axo3 , nonfocal. assessment and plan discussed with note bowel and coordinated in ICU note.
--- NOTE | 2020-04-13 13:58 | P.PNCC_ITS ---
Subjective Subjective Date of Service: 04/13/20 Interval History: 49-year-old lady, active 20+ pack-year smoker, with underlying history of asthma / COPD overlap syndrome, HENRY, hypertension, diabetes mellitus, congestive heart failure, depression admitted on 04/12/2020 with 2-day history o f worsening dyspnea. On ER evaluation patient was noted to be in acute exacerbation of underlying COPD resulting in acute on chronic hypoxic and hypercapnic respiratory failure requiring BiPAP support. She has been started on nebulized bronchodilators and systemic glucocorticoids and admitted to i ntensive care unit. No events overnight. Has been titrated off BiPAP. Physical Exam Vital Signs: Vital Signs: Vital Signs Temp Pulse Resp BP Pulse Ox 04/13/20 11:37 97.3 F 97 20 119/77 91 L 04/13/20 07:53 96.3 F L 86 22 H 155/80 H 91 L 04/13/20 07:00 75 16 152/78 H 96 04/13/20 06:58 87 18 150/64 H 96 04/13/20 06:00 62 17 151/93 H 04/13/20 04:59 93 19 124/104 H 95 04/13/20 04:00 83 18 124/104 H 92 04/13/20 03:00 84 24 H 133/76 97 04/13/20 02:00 88 14 146/86 H 94 04/13/20 01:00 94 17 145/87 H 93 04/13/20 00:00 97.9 F 96 16 138/76 96 04/12/20 23:00 112 H 20 125/75 96 04/12/20 22:00 109 H 21 H 130/79 93 04/12/20 21:00 114 H 14 139/81 93 04/12/20 20:00 98.1 F 115 H 19 126/70 95 04/12/20 19:00 111 H 14 168/91 H 94 04/12/20 17:57 117 H 22 H 164/90 H 95 04/12/20 17:00 112 H 18 168/84 H 97 04/12/20 16:54 216/112 H 04/12/20 16:00 97.6 F 111 H 16 202/110 H 93 04/12/20 15:00 92 20 165/107 H 91 L Body Mass Index 38.0 Const: General: no acute distress, alert and awake Eyes: Sclerae: sclerae normal EOM: EOMs intact bilaterally Neck: Neck: Yes no lymphadenopathy, Yes trachea midline and Yes supple Resp: Effort & Inspection: normal respiratory effort and no respiratory distress Auscultation: clear to auscultation bilaterally Cardio: Rate: regular rate Rhythm: regular rhythm Heart sounds: no gallops, no murmurs and no rubs GI: Palpation (GI): Soft to palpation and Other GI palpation findings present ( Nontender) Auscultation: normal bowel sounds Extrem: General: Yes no pedal edema, No clubbing and No cyanosis Objective Data Labs CBC & Chem 7: 04/13/20 06:34 04/13/20 06:34 Labs: Laboratory Results - last 24 hr 04/12/20 04/12/20 04/12/20 12:37 16:32 17:59 WBC RBC Hgb Hct MCV MCH MCHC RDW Plt Count MPV Immature Gran % (Auto) Neut % (Auto) Lymph % (Auto) [place] % (Auto) Eos % (Auto) Baso % (Auto) Lymph # (Auto) [place] # (Auto) Eos # (Auto) Baso # (Auto) Abs Immat Gran (auto) Absolute Neuts (auto) Absolute Nucleated RBC Nucleated RBC % (auto) Smear Tech's Comments VBG pH VBG pCO2 VBG Oxygen Liters/Min VBG pO2 VBG HCO3 VBG O2 Saturation VBG Base Excess Sodium Potassium Chloride Carbon Dioxide Anion Gap BUN Creatinine Estim Creat Clear Calc Estimated GFR POC Glucose 345 H Random Glucose Calcium Phosphorus Magnesium Albumin Urine Opiates Screen Not Detected Ur Barbiturates Screen Not Detected Ur Phencyclidine Scrn Not Detected Ur Amphetamines Screen Not Detected U Benzodiazepines Scrn Not Detected Urine Cocaine Screen POSITIVE H U Marijuana (THC) Screen Not Detected Respiratory Panel Keys See Note Adenovirus (Rapid PCR) Not Detected B.pert (TEM-PCR) Not Detected B.parapertussis DNA PCR Not Detected C. pneumoniae DNA (PCR) Not Detected Coronavirus OC43 (PCR) Not Detected Coronavirus HKU1 (PCR) Not Detected Coronavirus 229E (PCR) Not Detected Coronavirus NL63 (PCR) Not Detected Human Metapneumovir PCR Not Detected Influenza A (RT-PCR) Not Detected Influenza B (RT-PCR) Not Detected M. pneumoniae (PCR) Not Detected Parainfluenza 1 (PCR) Not Detected Parainfluenza 2 (PCR) Not Detected Parainfluenza 3 (PCR) Not Detected Parainfluenza 4 (PCR) Not Detected RSV (PCR) Not Detected Entero/Rhino (PCR) Not Detected SARS-CoV-2 RNA (RT-PCR) Not Detected 04/12/20 04/13/20 04/13/20 21:15 06:34 06:34 WBC 12.7 H RBC 4.58 Hgb 12.1 Hct 38.1 MCV 83.2 MCH 26.4 L MCHC 31.8 RDW 15.1 Plt Count 408 H MPV 9.6 Immature Gran % (Auto) 0.3 Neut % (Auto) 60.0 Lymph % (Auto) 32.8 [place] % (Auto) 6.4 Eos % (Auto) 0.3 Baso % (Auto) 0.2 Lymph # (Auto) 4.2 [place] # (Auto) 0.8 Eos # (Auto) 0.0 Baso # (Auto) 0.0 Abs Immat Gran (auto) 0.04 H Absolute Neuts (auto) 7.6 Absolute Nucleated RBC 0.000 Nucleated RBC % (auto) 0.0 Smear Tech's Comments VERIFIED VBG pH VBG pCO2 VBG Oxygen Liters/Min VBG pO2 VBG HCO3 VBG O2 Saturation VBG Base Excess Sodium 137 Potassium 3.9 Chloride 98 Carbon Dioxide 32 H Anion Gap 11 L BUN 17 H Creatinine 0.64 Estim Creat Clear Calc 102.9 Estimated GFR > 60 POC Glucose 331 H Random Glucose 234 H Calcium 8.9 Phosphorus 4.3 Magnesium 1.8 Albumin 3.7 Urine Opiates Screen Ur Barbiturates Screen Ur Phencyclidine Scrn Ur Amphetamines Screen U Benzodiazepines Scrn Urine Cocaine Screen U Marijuana (THC) Screen Respiratory Panel Keys Adenovirus (Rapid PCR) B.pert (TEM-PCR) B.parapertussis DNA PCR C. pneumoniae DNA (PCR) Coronavirus OC43 (PCR) Coronavirus HKU1 (PCR) Coronavirus 229E (PCR) Coronavirus NL63 (PCR) Human Metapneumovir PCR Influenza A (RT-PCR) Influenza B (RT-PCR) M. pneumoniae (PCR) Parainfluenza 1 (PCR) Parainfluenza 2 (PCR) Parainfluenza 3 (PCR) Parainfluenza 4 (PCR) RSV (PCR) Entero/Rhino (PCR) SARS-CoV-2 RNA (RT-PCR) 04/13/20 04/13/20 04/13/20 06:34 07:05 11:39 WBC RBC Hgb Hct MCV MCH MCHC RDW Plt Count MPV Immature Gran % (Auto) Neut % (Auto) Lymph % (Auto) [place] % (Auto) Eos % (Auto) Baso % (Auto) Lymph # (Auto) [place] # (Auto) Eos # (Auto) Baso # (Auto) Abs Immat Gran (auto) Absolute Neuts (auto) Absolute Nucleated RBC Nucleated RBC % (auto) Smear Tech's Comments VBG pH 7.39 VBG pCO2 55 VBG Oxygen Liters/Min Not Reportable VBG pO2 65 VBG HCO3 32 VBG O2 Saturation 92.3 VBG Base Excess 5.6 Sodium Potassium Chloride Carbon Dioxide Anion Gap BUN Creatinine Estim Creat Clear Calc Estimated GFR POC Glucose 217 H 159 H Random Glucose Calcium Phosphorus Magnesium Albumin Urine Opiates Screen Ur Barbiturates Screen Ur Phencyclidine Scrn Ur Amphetamines Screen U Benzodiazepines Scrn Urine Cocaine Screen U Marijuana (THC) Screen Respiratory Panel Keys Adenovirus (Rapid PCR) B.pert (TEM-PCR) B.parapertussis DNA PCR C. pneumoniae DNA (PCR) Coronavirus OC43 (PCR) Coronavirus HKU1 (PCR) Coronavirus 229E (PCR) Coronavirus NL63 (PCR) Human Metapneumovir PCR Influenza A (RT-PCR) Influenza B (RT-PCR) M. pneumoniae (PCR) Parainfluenza 1 (PCR) Parainfluenza 2 (PCR) Parainfluenza 3 (PCR) Parainfluenza 4 (PCR) RSV (PCR) Entero/Rhino (PCR) SARS-CoV-2 RNA (RT-PCR) Microbiology Microbiology Results: Microbiology 04/12/20 10:21 Blood - Venous Blood Culture - Preliminary No growth after 24 hours. 04/12/20 10:19 Blood - Venous Blood Culture - Preliminary No growth after 24 hours. Progress Note: A&P Assessment and plan (1) Diabetes mellitus: Status: Acute (2) HENRY (obstructive sleep apnea): Status: Acute (3) Acute and chronic respiratory failure, unspecified whether with hypoxia or hypercapnia: Status: Acute (4) COPD exacerbation: Status: Acute Assessment and Plan: Assessment: 49-year-old lady with underlying history of obesity, HENRY, asthma / COPD overlap syndrome admitted with acute on chronic hypoxic and hypercapnic respiratory failure secondary to exacerbation of underlying COPD. Plan: Neuro: No acute issues. Cardiac: no acute issues Pulmonary: Acute on chronic hypoxic and hypercapnic respiratory failure secondary to exacerbation of underlying COPD. Titrated off BiPAP. Continue with nebulized bronchodilators and systemic glucocorticoids. Patient requires nocturnal CPAP support for underlying HENRY. Renal: No acute issues. Endo: No acute issues. Underlying diabetes mellitus. GI: No acute issues. ID: No acute issues Heme/Onc: No acute issues. Psych: No acute issues. Miscellaneous: No acute issues. Prophylaxis: Heparin Diet: diabetic Critical care time spent: 45 minutes Time Spent With Patient Time: Total time spent is greater than 50% in coordination of care (as documented) at patient's floor/unit and/or counseling patient: Total time spent with greater than 50% in coordination of care (as documented) at patient's floor/unit and/or counseling patient:: 0 Critical Care Time 45 minutes
[2020-04-13 17:07] LABS: Glucose, Whole Blood 349 mg/dL (60-115)
[2020-04-13 20:15] LABS: Glucose, Whole Blood 292 mg/dL (60-115)
[2020-04-13] MEDS: Gabapentin 600 MG TABLET PO (20:32)
[2020-04-14 02:56] VITALS: BP 131/69; PULSE 69; RESP 19; TEMP 36.1; O2SAT 96
[2020-04-14] MEDS: traMADoL HCL 50 MG TABLET PO ×2 (04:28→11:20)
[2020-04-14] MEDS: Heparin Sodium,Porcine 5,000 UNIT/ML VIAL 5000 UNIT SUBCUT (05:13)
[2020-04-14 06:55] LABS: Hematocrit 36.8 % (37-47); Hemoglobin 11.6 g/dl (12.0-16.0); Mean Corpuscular HGB Conc 31.5 g/dl (31.0-35.0); Mean Corpuscular Hemoglobin 26.5 pg (27.0-33.0); Mean Corpuscular Volume 84.2 fL (80-98); Platelet Count 425 X10*3/uL (160-400); Red Blood Count 4.37 X10*6/uL (4.20-5.50); Red Cell Distribution Width 15.1 % (11.0-16.0); White Blood Count 11.6 X10*3/uL (4.8-10.8)
[2020-04-14 07:03] LABS: Anion Gap 12 (12-20); Blood Urea Nitrogen 20 mg/dL (9-16); Calcium 8.7 mg/dL (8.4-10.2); Carbon Dioxide 31 mmol/L (22-29); Chloride 98 mmol/L (96-108); Creatinine Clr Calc Pharmacy 92.7; Estimated Glomerular Filt Rate > 60; Glucose Random 206 mg/dL (60-115); Potassium 4.2 mmol/l (3.3-5.1); Sodium 137 mmol/L (135-145)
[2020-04-14 07:12] VITALS: BP 151/76; PULSE 78; RESP 18; TEMP 36.6; O2SAT 92
[2020-04-14] MEDS: Albuterol/Iprat 2.5/0.5MG 3 ML AMPUL.NEB INHALE (07:48)
[2020-04-14] MEDS: 0.9 % Sodium Chloride Flush 3 ML SYRINGE IVFLUSH (08:25)
[2020-04-14] MEDS: predniSONE 20 MG TABLET 40 MG PO (08:26)
[2020-04-14] MEDS: Gabapentin 600 MG TABLET PO (08:26)
[2020-04-14 08:30] LABS: Glucose, Whole Blood 193 mg/dL (60-115)
--- NOTE | 2020-04-14 10:52 | P.DS_ITS ---
DS: Providers Provider Date of admission: 04/12/20 12:17 Primary care physician: Unknown Physician Dr Adelso Cordero DS: Diagnosis Discharge Diagnosis (1) Diabetes mellitus: Status: Acute (2) HENRY (obstructive sleep apnea): Status: Acute (3) Acute and chronic respiratory failure, unspecified whether with hypoxia or hypercapnia: Status: Acute (4) COPD exacerbation: Status: Acute DS: Summary Hospital Course Hospital Course: 49-year-old lady, active 20+ pack-year smoker, with underlying history of asthma / COPD overlap syndrome, HENRY, hypertension, diabetes mellitus, congestive heart failure, depression admitted on 04/12/2020 with 2-day history of worsening dyspnea. On ER evaluation patient was noted to be in acute exacerbation of underlying COPD resulting in acute on chronic hypoxic and hypercapnic respiratory failure requiring BiPAP support,patient treated with nebulizers, and systemic glucocorticoids and admitted to intensive care unit.now titrated of f bipap doing well patient has been instructed to use cpap at home,patient being discharged home on prednisone. In Time Spent with Patient Time attestation: Total time spent providing and/or coordinating discharge services: Time spent: Greater than 30 minutes Physical Exam Vital Signs: Vital Signs: Vital Signs Temp Pulse Resp BP Pulse Ox 04/14/20 07:12 97.9 F 78 18 151/76 H 92 04/14/20 02:56 96.9 F 69 19 131/69 96 04/13/20 23:02 96.7 F L 73 19 130/63 99 04/13/20 19:01 97.0 F 80 19 148/76 H 94 04/13/20 15:35 98.6 F 88 18 153/88 H 93 04/13/20 11:37 97.3 F 97 20 119/77 91 L Body Mass Index 38.0 Appearance: Alert. Oriented X3. no distress. Eyes: Pupils equal, round and reactive to light. Neck: Normal inspection. Neck supple. CVS: regular rate and rhythm. Pulses normal. Respiratory: normal Breath sounds no wheezes, Abdomen: Soft and nontender. obese Skin: Skin warm and dry. Normal skin color. Normal skin turgor. Extremities: No lower extremity edema. Neuro: Oriented X 3. No motor deficit. No sensory deficit. Const: General: No awake Neck: Neck: Yes supple Resp: Auscultation: wheezes ( bilateral expiratory) GI: Palpation (GI): Other GI palpation findings present ( Nontender) DS: Data Data Completed and Pending Labs on day of discharge: Labs from last 24 hours 04/14/20 04/14/20 04/14/20 07:11 05:55 05:55 WBC 11.6 H RBC 4.37 Hgb 11.6 L Hct 36.8 L MCV 84.2 MCH 26.5 L MCHC 31.5 RDW 15.1 Plt Count 425 H MPV 10.0 Absolute Nucleated RBC 0.000 Nucleated RBC % (auto) 0.0 Sodium 137 Potassium 4.2 Chloride 98 Carbon Dioxide 31 H Anion Gap 12 BUN 20 H Creatinine 0.71 Estim Creat Clear Calc 92.7 Estimated GFR > 60 POC Glucose 193 H Random Glucose 206 H Calcium 8.7 04/13/20 04/13/20 04/13/20 20:09 17:04 11:39 WBC RBC Hgb Hct MCV MCH MCHC RDW Plt Count MPV Absolute Nucleated RBC Nucleated RBC % (auto) Sodium Potassium Chloride Carbon Dioxide Anion Gap BUN Creatinine Estim Creat Clear Calc Estimated GFR POC Glucose 292 H 349 H 159 H Random Glucose Calcium Preliminary micro results at discharge 04/12/20 10:21 Blood Culture - Preliminary Blood - Venous No growth after 24 hours. 04/12/20 10:19 Blood Culture - Preliminary Blood - Venous No growth after 24 hours. Discharge Plan Discharge Patient Disposition: Home, Self-Care Referrals: [facility] [Outside] Physician,Unknown [Primary Care Provider] - Discharge Medications: New prednisone 20 mg Tablet 40 mg PO DAILY Qty: 3 RF: 0 Continued bupropion HCl 300 mg tablet extended release 24 hr 300 mg PO QAM 30 Days Qty: 30 RF: 2 gabapentin 600 mg tablet 600 mg PO QID 30 Days Qty: 120 RF: 0 losartan 25 mg tablet 25 mg PO DAILY 90 Days Qty: 90 RF: 0 ibuprofen 800 mg Tablet 800 mg PO BID PRN (Reason: Pain (Scale Score 1-3)) RF: 0 tizanidine 4 mg Tablet 4 mg PO BID PRN (Reason: Muscle Spasm) RF: 0 furosemide 20 mg Tablet 20 mg PO BID RF: 0 metformin 500 mg Tablet Extended Release 24 Hr 500 mg PO QPM RF: 0 dicyclomine 10 mg Capsule 10 mg PO QID PRN (Reason: Abdominal Discomfort) RF: 0 Amitiza 24 mcg Capsule 24 mcg PO BID RF: 0 venlafaxine 225 mg Tablet Extended Release 24hr 225 mg PO DAILY RF: 0 Trulicity 0.75 mg/0.5 mL Pen Injector 0.75 mg SUBCUT QWEEK RF: 0 Stiolto Respimat 2.5-2.5 mcg/actuation Mist 2 puff INHALATION DAILY RF: 0 carisoprodol 350 mg tablet 350 mg PO DAILY PRN (Reason: Muscle Spasm) RF: 0 ipratropium-albuterol 0.5 mg-3 mg(2.5 mg base)/3 mL Solution For Nebulization 3 ml INHALATION TID RF: 0 aspirin 81 mg Tablet,Delayed Release (Dr/Ec) 81 mg PO DAILY RF: 0 alpha lipoic acid 200 mg tablet 400 mg PO DAILY RF: 0 montelukast [Singulair] 10 mg tablet 10 mg PO BEDTIME RF: 0 cholecalciferol (vitamin D3) 50 mcg (2,000 unit) capsule 50 mcg PO DAILY RF: 0 atorvastatin 80 mg tablet 80 mg PO DAILY RF: 0 cetirizine 10 mg tablet 10 mg PO DAILY RF: 0 albuterol sulfate 90 mcg/actuation HFA aerosol inhaler 2 puff inhalation Q6H PRN (Reason: Shortness Of Breath) RF: 0 Discontinued levofloxacin 750 mg tablet 750 mg PO DAILY 7 Days Qty: 7 RF: 0 Discharge Orders: Discharge Order (Routine); Ordered 04/14/20 Ordered By: Tom Herr Diet: diabetic diet Activity on Discharge: As tolerated Visit Report Forms: Patient Portal Discharge page Health Concerns: as per discharge plan Plan of Treatment: use cpap at home call respiratory agency to adjust settings.
[2020-04-14 11:11] LABS: Glucose, Whole Blood 248 mg/dL (60-115)
[2020-04-14] MEDS: Insulin Lispro 100 UNIT/ML 3 ML VIAL SUBCUT (11:20)
== END 2020-04-14 11:31 | disposition home or self-care (01) | DRG 140 ==
LOC: HO.ED 12:19 → HO.ICU 12:31 → HO.IMC 04-13 08:21
PROVIDERS: Internal Medicine; Registered Nurse Community Health; Admitting Provider Internal Medicine Pulmonary Disease; Emergency Provider Emergency Medicine; Visit Provider Hospitalist
DX: J44.0 Chronic obstructive pulmonary disease with (acute) lower respiratory infection (principal); J96.21 Acute and chronic respiratory failure with hypoxia; I50.9 Heart failure, unspecified; E66.9 Obesity, unspecified; F17.210 Nicotine dependence, cigarettes, uncomplicated; Z99.89 Dependence on other enabling machines and devices; G47.33 Obstructive sleep apnea (adult) (pediatric); Z20.828 Contact with and (suspected) exposure to other viral communicable diseases; Z68.38 Body mass index [BMI] 38.0-38.9, adult; Z71.6 Tobacco abuse counseling; J96.22 Acute and chronic respiratory failure with hypercapnia; E11.9 Type 2 diabetes mellitus without complications; Z79.1 Long term (current) use of non-steroidal anti-inflammatories (NSAID); Z79.52 Long term (current) use of systemic steroids; Z79.82 Long term (current) use of aspirin; Z79.899 Other long term (current) drug therapy
CPT/HCPCS: 36415; 71045; 80048; 80076; 80307; 82040; 82803; 82947; 83605; 83690; 83735; 83880; 84100; 84484; 85025; 85027; 87040; 87633; 93005; 94660; 96365; 96375; 99285

== ENCOUNTER 2020-04-12 11:02 | Outpatient (RCR) | payer OTHER, SELFPAY ==
--- NOTE | 2020-04-27 10:31 | MHC.PT.DC ---
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 Pt therefore d/c from therapy. Electronically signed by: Dee Jacinto DPT Please sign and return to therapist. Thank you for your referral.
== END 2020-04-27 10:34 | disposition other institution (70) ==
LOC: HO.PT 11:02
PROVIDERS: PCP Nurse Practitioner Family; Visit Provider Anesthesiology
DX: M47.812 Spondylosis without myelopathy or radiculopathy, cervical region (principal)

== ENCOUNTER 2020-04-21 08:48 | Outpatient (REF) | payer OTHER, SELFPAY ==
--- NOTE | 2020-04-21 | EMG_ITS ---
Right median and ulnar motor and sensory studies were performed. Right radial sensory studies were performed and paraspinal muscles were tested with a needle. IMPRESSION: [id number] right median neuropathy across carpal tunnel. MD DENNIS Rajan/ZABRINA / [id number]
== END 2020-04-21 08:49 | disposition home or self-care (01) ==
LOC: HO.NEURO 08:48
PROVIDERS: PCP Nurse Practitioner Family; Visit Provider Physician Assistant
DX: G56.01 Carpal tunnel syndrome, right upper limb (principal)
CPT/HCPCS: 95860; 95886; 95909

== ENCOUNTER 2020-04-27 08:31 | Inpatient (IN) | payer OTHER, SELFPAY ==
[2020-04-27] VITALS (15 sets, daily range): BP systolic 112–148; BP diastolic 59–85; PULSE 22–110; RESP 18–30; TEMP 36.7–38.5; O2SAT 86–99; BMI 39.6
--- NOTE | 2020-04-27 08:46 | XR_ITS ---
EXAMINATION: XR CHEST CLINICAL INFORMATION: Shortness of breath COMPARISON: Previous chest x-rays most recent December 2019 TECHNIQUE: Frontal view of the chest was obtained. FINDINGS: The cardiac and mediastinal contours are stable. The lungs are clear. There is no pleural effusion or pneumothorax. There are old left-sided rib fractures. There are degenerative changes of the spine. XR/XR chest 1V IMPRESSION: No evidence for acute disease in the chest.
--- NOTE | 2020-04-27 08:46 | ECG_ITS ---
Test Reason : CHEST PAIN Blood Pressure : / mmHG Vent. Rate : 102 BPM Atrial Rate : 102 BPM P-R Int : 118 ms QRS Dur : 086 ms QT Int : 314 ms P-R-T Axes : 076 073 064 degrees QTc Int : 409 ms Sinus tachycardia Intra-ventricular conduction delay Poor data quality Possible Left atrial enlargement Low voltage QRS Borderline ECG [facility] to [facility] E[facility] of 12-Apr-2020 at 09:45:02 Heart rate has increased Referred By: Ly Bazan Electronically Signed By:ZAHRAA MACIEL MD
--- NOTE | 2020-04-27 08:50 | ED_ITS ---
HPI - General Adult General Chief complaint: Dyspnea Stated complaint: NAUSEA,VOMITING,CHEST PAIN Time Seen by Provider: 04/27/20 08:39 Source: patient Mode of arrival: EMS Limitations: no limitations History of Present Illness HPI narrative: patient comes to the emergency room complaining of nausea and vomiting that started yesterday. Patient states while she was coming over to the hospital in [place], she developed chest pain, aspirin was given to her by the time she reached the emergency room the chest pain resolved. Patient also complaining of shortness of breath. Of note, patient was discharged from the [facility] for respiratory failure secondary to asthma / COPD. MD complaint: Nausea, vomiting Related Data Home Medications Medication Instructions Recorded Confirmed albuterol sulfate 90 mcg/actuation 2 puff INHALATION Q6H PRN g 04/08/20 04/12/20 aerosol inhaler alpha lipoic acid 200 mg tablet 400 mg PO DAILY 04/08/20 04/12/20 atorvastatin 80 mg tablet 80 mg PO DAILY 04/08/20 04/12/20 cetirizine 10 mg tablet 10 mg PO DAILY 04/08/20 04/12/20 cholecalciferol (vitamin D3) 50 50 mcg PO DAILY 04/08/20 04/12/20 mcg (2,000 unit) capsule montelukast 10 mg tablet 10 mg PO BEDTIME 04/08/20 04/12/20 Amitiza 24 mcg PO BID 04/12/20 04/12/20 Stiolto Respimat 2 puff INHALATION DAILY 04/12/20 04/12/20 Trulicity 0.75 mg SUBCUT QWEEK 04/12/20 04/12/20 aspirin 81 mg PO DAILY 04/12/20 04/12/20 carisoprodol 350 mg PO DAILY PRN 04/12/20 04/12/20 dicyclomine 10 mg PO QID PRN 04/12/20 04/12/20 furosemide 20 mg PO BID 04/12/20 04/12/20 ibuprofen 800 mg PO BID PRN 04/12/20 04/12/20 ipratropium-albuterol 3 ml INHALATION TID 04/12/20 04/12/20 metformin 500 mg PO QPM 04/12/20 04/12/20 venlafaxine 225 mg PO DAILY 04/12/20 04/12/20 Previous Rx's Medication Instructions Recorded bupropion HCl 300 mg 24 hr tablet, 300 mg PO QAM 30 Days #30 tab 04/04/20 extended release gabapentin 600 mg tablet 600 mg PO QID 30 Days #120 tab 04/04/20 losartan 25 mg tablet 25 mg PO DAILY 90 Days #90 tab 04/04/20 prednisone 40 mg PO DAILY #3 tab 04/14/20 tizanidine 4 mg tablet 4 mg PO BID PRN 30 Days #60 tab 04/18/20 Allergies Allergy/AdvReac Type Severity Reaction Status Date / Time doxycycline Allergy Severe Swelling Verified 04/12/20 16:59 varenicline [From CHANTIX] Allergy Severe ANAPHYLAXIS Verified 04/12/20 16:59 azithromycin Allergy Mild Rash Verified 04/12/20 16:59 cetirizine Allergy Mild Rash Verified 04/12/20 16:59 famotidine Allergy Mild Rash Verified 04/12/20 16:59 linaclotide [Linzess] Allergy Mild Rash Verified 04/12/20 16:59 barium sulfate Allergy Unknown angioedema Verified 01/27/20 00:00 Review of Systems Review of Systems: Constitutional : No Weight loss, complaining of chills, generalized fatigue and malaise ENT/Mouth : No Hearing loss, No Ear Pain, No Nasal Congestion, No Sinus Pain, No Hoarseness, No sore throat, No Rhinorrhea, No Swallowing Difficulty Eyes: No Eye Pain, No Swelling, No Redness, No Foreign Body, No Discharge, No Vision Changes Cardiovascular : chest pain/ pressure that self-resolved prior to arrival, patient has chronic dyspnea on exertion and chronic orthopnea Respiratory : patient complaining of coughing, wheezing more than at baseline, No Smoke Exposure, No Dyspnea Gastrointestinal : No Nausea, vomiting x1 yesterday. No Diarrhea, Complaining of chronic constipation Genitourinary : no irregular bleeding, No Dysuria, No Urinary Frequency, No Hematuria, No Urinary Incontinence, No Urgency, No Flank Pain, No Urinary Flow Changes, No Hesitancy Musculoskeletal : No joint pain, No Myalgias, No Joint Swelling Skin : No Skin Lesions, No rash Neuro : No Weakness, No Numbness, No Paresthesias, No Loss of Consciousness, No Dizziness, No Headache Psych : No Anxiety/Panic, No Depression, No SI/HI/AH/VH, No Social Issues, Heme/Lymph: No Bruising, No Bleeding,No Lymphadenopathy Endocrine : No Polyuria, No Polydipsia, No Temperature Intolerance Yes all other systems are reviewed and are negative [facility] Past Medical History Medical History Acute and chronic respiratory failure, unspecified whether with hypoxia or hypercapnia COPD (chronic obstructive pulmonary disease) COPD exacerbation Diabetes mellitus Diabetes mellitus GERD (gastroesophageal reflux disease) Hernia HTN (hypertension) Obesity (BMI 30-39.9) Obstructive sleep apnea HENRY (obstructive sleep apnea) Respiratory failure Social History Social History Household Members: Family Housing: House Alcohol intake: current Alcohol intake frequency: a few times a month Smoking Status: Current some day smoker Tobacco Type: Cigarette Packs Per Day: 1 Cigarettes Per Day: 20.0 Years Smoked: 30 Second Hand Smoke Exposure: Yes Use of substances other than those prescribed or required for medical reasons: Yes Substance Use Type: Crack/Cocaine Substance Use Type Other:: SMOKES CRACK COCAINE 1 TIME 4 OR 5 DAYS AGO Advance Directives: No Advance Directives Information Provided: No service: No Physical Exam Vital Signs: Vital Signs: Vital Signs Temp Pulse Resp BP Pulse Ox 04/27/20 14:28 22 H 04/27/20 14:00 24 H 96 04/27/20 13:38 81 24 H 138/73 97 04/27/20 13:10 97 20 142/85 H 95 04/27/20 12:38 91 124/74 04/27/20 11:51 86 L 04/27/20 11:30 99.7 F 04/27/20 11:10 99 30 H 136/66 94 04/27/20 10:12 105 H 112/59 L 99 04/27/20 08:42 101.3 F H 110 H 30 H 93 Body Mass Index 39.6 Appearance: Alert. Oriented X3. No acute distress. anxious. Fever of 101.3 Eyes: Pupils equal, round and reactive to light. ENT: Pharynx normal. Neck: Normal inspection. Neck supple. No lymph nodes noted. No crepitus CVS: Tachycardic. Pulses normal. Normal S1 and S2 Respiratory: mild respiratory distress, speaking in short sentences,Breath sounds normal. No Wheezing. No rales Abdomen: Soft and mildly distended, no rigidity Skin: Skin warm and dry. Normal skin color. Normal skin turgor. Extremities: No lower extremity edema. No lower extremity edema. No Laceratio ns. No Rash Neuro: Oriented X 3. No motor deficit. No sensory deficit. Moving all extermities. No slurred speech. Course Course Course Narrative: Patient is getting 1.5 L of normal saline, patient's ideal weight for her height is 47.6 kilos, equivalent to 1428 mL. Patient is gradually becoming more somnolent, patient's oxygen saturation was in the midst 80s on 5 L. Patient is very somnolent. ABGs were obtained, pH is 7.25, CO2 58. patient is now on BiPAP I discussed the patient with Dr. Doss. Reviewing patient's notes, seems that she has been treated in the past for the same issue without antibiotics, Medical Decision Making Lab Data Result diagrams: 04/27/20 09:21 04/27/20 09:21 Labs: Lab Results 04/27/20 04/27/20 04/27/20 Range/Units 09:20 09:21 09:21 WBC 13.1 H (4.8-10.8) X10*3/uL RBC 4.32 (4.20-5.50) X10*6/uL Hgb 11.4 L (12.0-16.0) g/dl Hct 35.0 L (37-47) % MCV 81.0 (80-98) fL MCH 26.4 L (27.0-33.0) pg MCHC 32.6 (31.0-35.0) g/dl RDW 15.0 (11.0-16.0) % Plt Count 177 D (160-400) X10*3/uL MPV 10.9 (9.4-12.3) fL Immature Gran % (Auto) 0.6 H (0.0-0.4) % Neut % (Auto) 82.4 H (45-73) % Lymph % (Auto) 8.6 L (20-40) % Patrick % (Auto) 7.7 (2-11) % Eos % (Auto) 0.3 (0-4) % Baso % (Auto) 0.4 (0-2) % Lymph # (Auto) 1.1 L (1.2-4.9) X10*3/uL Patrick # (Auto) 1.0 (0.1-1.2) X10*3/uL Eos # (Auto) 0.0 (0.0-0.4) X10*3/uL Baso # (Auto) 0.1 (0.0-0.2) X10*3/uL Abs Immat Gran (auto) 0.08 H (0.00-0.03) X10*3/uL Absolute Neuts (auto) 10.8 H (2.0-8.3) X10*3/uL Absolute Nucleated RBC 0.000 (0.0-0.012) X10*3/uL Nucleated RBC % (auto) 0.0 (0.0-0.2) /100WBC ABG pH ABG pCO2 ABG pO2 ABG HCO3 ABG O2 Saturation ABG Base Excess Oxygen Given Sodium 132 L (135-145) mmol/L Potassium 3.9 (3.3-5.1) mmol/l Chloride 92 L (96-108) mmol/L Carbon Dioxide 28 (22-29) mmol/L Anion Gap 16 (12-20) BUN 33 H D (9-16) mg/dL Creatinine 1.30 (0.5-1.4) mg/dL Estim Creat Clear Calc 49.6 Estimated GFR 43 Random Glucose 239 H (60-115) mg/dL Lactic Acid (0.5-2.0) mmol/L Calcium 8.0 L (8.4-10.2) mg/dL Total Bilirubin 0.7 (0.0-1.0) mg/dL Direct Bilirubin 0.3 (0.0-0.5) mg/dL AST 12 (5-31) U/L ALT 14 (0-31) U/L Alkaline Phosphatase 117 (39-117) U/L Troponin I High Sens (<3.5-17.0) ng/L B-Natriuretic Peptide (<100) pg/mL Total Protein 5.7 L (6.5-8.0) g/dL Albumin 3.1 L (3.5-5.0) g/dL Lipase 13 (8-78) U/L Coronavirus (PCR) NEGATIVE (Negative) 04/27/20 04/27/20 04/27/20 Range/Units 09:21 09:22 12:07 WBC (4.8-10.8) X10*3/uL RBC (4.20-5.50) X10*6/uL Hgb (12.0-16.0) g/dl Hct (37-47) % MCV (80-98) fL MCH (27.0-33.0) pg MCHC (31.0-35.0) g/dl RDW (11.0-16.0) % Plt Count (160-400) X10*3/uL MPV (9.4-12.3) fL Immature Gran % (Auto) (0.0-0.4) % Neut % (Auto) (45-73) % Lymph % (Auto) (20-40) % Patrick % (Auto) (2-11) % Eos % (Auto) (0-4) % Baso % (Auto) (0-2) % Lymph # (Auto) (1.2-4.9) X10*3/uL Patrick # (Auto) (0.1-1.2) X10*3/uL Eos # (Auto) (0.0-0.4) X10*3/uL Baso # (Auto) (0.0-0.2) X10*3/uL Abs Immat Gran (auto) (0.00-0.03) X10*3/uL Absolute Neuts (auto) (2.0-8.3) X10*3/uL Absolute Nucleated RBC (0.0-0.012) X10*3/uL Nucleated RBC % (auto) (0.0-0.2) /100WBC ABG pH Cancelled ABG pCO2 Cancelled ABG pO2 Cancelled ABG HCO3 Cancelled ABG O2 Saturation Cancelled ABG Base Excess Cancelled Oxygen Given Cancelled Sodium (135-145) mmol/L Potassium (3.3-5.1) mmol/l Chloride (96-108) mmol/L Carbon Dioxide (22-29) mmol/L Anion Gap (12-20) BUN (9-16) mg/dL Creatinine (0.5-1.4) mg/dL Estim Creat Clear Calc Estimated GFR Random Glucose (60-115) mg/dL Lactic Acid 1.3 (0.5-2.0) mmol/L Calcium (8.4-10.2) mg/dL Total Bilirubin (0.0-1.0) mg/dL Direct Bilirubin (0.0-0.5) mg/dL AST (5-31) U/L ALT (0-31) U/L Alkaline Phosphatase (39-117) U/L Troponin I High Sens 14.6 D (<3.5-17.0) ng/L B-Natriuretic Peptide 69 (<100) pg/mL Total Protein (6.5-8.0) g/dL Albumin (3.5-5.0) g/dL Lipase (8-78) U/L Coronavirus (PCR) (Negative) 04/27/20 Range/Units 13:18 WBC (4.8-10.8) X10*3/uL RBC (4.20-5.50) X10*6/uL Hgb (12.0-16.0) g/dl Hct (37-47) % MCV (80-98) fL MCH (27.0-33.0) pg MCHC (31.0-35.0) g/dl RDW (11.0-16.0) % Plt Count (160-400) X10*3/uL MPV (9.4-12.3) fL Immature Gran % (Auto) (0.0-0.4) % Neut % (Auto) (45-73) % Lymph % (Auto) (20-40) % Patrick % (Auto) (2-11) % Eos % (Auto) (0-4) % Baso % (Auto) (0-2) % Lymph # (Auto) (1.2-4.9) X10*3/uL Patrick # (Auto) (0.1-1.2) X10*3/uL Eos # (Auto) (0.0-0.4) X10*3/uL Baso # (Auto) (0.0-0.2) X10*3/uL Abs Immat Gran (auto) (0.00-0.03) X10*3/uL Absolute Neuts (auto) (2.0-8.3) X10*3/uL Absolute Nucleated RBC (0.0-0.012) X10*3/uL Nucleated RBC % (auto) (0.0-0.2) /100WBC ABG pH 7.25 L ABG pCO2 58 H ABG pO2 80 L ABG HCO3 25 ABG O2 Saturation 92.9 ABG Base Excess -3.2 Oxygen Given 40% Sodium (135-145) mmol/L Potassium (3.3-5.1) mmol/l Chloride (96-108) mmol/L Carbon Dioxide (22-29) mmol/L Anion Gap (12-20) BUN (9-16) mg/dL Creatinine (0.5-1.4) mg/dL Estim Creat Clear Calc Estimated GFR Random Glucose (60-115) mg/dL Lactic Acid (0.5-2.0) mmol/L Calcium (8.4-10.2) mg/dL Total Bilirubin (0.0-1.0) mg/dL Direct Bilirubin (0.0-0.5) mg/dL AST (5-31) U/L ALT (0-31) U/L Alkaline Phosphatase (39-117) U/L Troponin I High Sens (<3.5-17.0) ng/L B-Natriuretic Peptide (<100) pg/mL Total Protein (6.5-8.0) g/dL Albumin (3.5-5.0) g/dL Lipase (8-78) U/L Coronavirus (PCR) (Negative) ECG Data Attestation: I personally reviewed and interpreted this ECG as follows: ( sinus rhythm, heart rate 102, QTC 409, overall low voltage, no ST segment depression or elevation, no T-wave inversions) Discharge Plan Discharge Clinical Impression: Respiratory failure with hypercapnia, Nausea & vomiting Prescriptions: No Action bupropion HCl 300 mg tablet extended release 24 hr 300 mg PO QAM 30 Days Qty: 30 RF: 2 gabapentin 600 mg tablet 600 mg PO QID 30 Days Qty: 120 RF: 0 losartan 25 mg tablet 25 mg PO DAILY 90 Days Qty: 90 RF: 0 tizanidine 4 mg tablet 4 mg PO BID PRN (Reason: muscle spasticity) 30 Days Qty: 60 RF: 0 ibuprofen 800 mg Tablet 800 mg PO BID PRN (Reason: Pain (Scale Score 1-3)) RF: 0 furosemide 20 mg Tablet 20 mg PO BID RF: 0 metformin 500 mg Tablet Extended Release 24 Hr 500 mg PO QPM RF: 0 dicyclomine 10 mg Capsule 10 mg PO QID PRN (Reason: Abdominal Discomfort) RF: 0 Amitiza 24 mcg Capsule 24 mcg PO BID RF: 0 venlafaxine 225 mg Tablet Extended Release 24hr 225 mg PO DAILY RF: 0 Trulicity 0.75 mg/0.5 mL Pen Injector 0.75 mg SUBCUT QWEEK RF: 0 Stiolto Respimat 2.5-2.5 mcg/actuation Mist 2 puff INHALATION DAILY RF: 0 carisoprodol 350 mg tablet 350 mg PO DAILY PRN (Reason: Muscle Spasm) RF: 0 ipratropium-albuterol 0.5 mg-3 mg(2.5 mg base)/3 mL Solution For Nebulization 3 ml INHALATION TID RF: 0 aspirin 81 mg Tablet,Delayed Release (Dr/Ec) 81 mg PO DAILY RF: 0 prednisone 20 mg Tablet 40 mg PO DAILY Qty: 3 RF: 0 alpha lipoic acid 200 mg tablet 400 mg PO DAILY RF: 0 montelukast [Singulair] 10 mg tablet 10 mg PO BEDTIME RF: 0 cholecalciferol (vitamin D3) 50 mcg (2,000 unit) capsule 50 mcg PO DAILY RF: 0 atorvastatin 80 mg tablet 80 mg PO DAILY RF: 0 cetirizine 10 mg tablet 10 mg PO DAILY RF: 0 albuterol sulfate 90 mcg/actuation HFA aerosol inhaler 2 puff inhalation Q6H PRN (Reason: Shortness Of Breath) RF: 0
[2020-04-27] MEDS: Albuterol Sulfate (0.083%) 2.5 MG/3 ML VIAL.NEB 10 MG INHALE (09:27)
[2020-04-27 09:35] LABS: MANUAL DIFF FLAG NO
[2020-04-27 09:36] LABS: Basophils Absolute Auto 0.1 X10*3/uL (0.0-0.2); Basophils Percent Auto 0.4 % (0-2); Eosinophils Percent Auto 0.3 % (0-4); Hemoglobin 11.4 g/dl (12.0-16.0); Imm Gran Abs Auto 0.08 X10*3/uL (0.00-0.03); Imm Gran Pct Auto 0.6 % (0.0-0.4); Lymphocytes Absolute Auto 1.1 X10*3/uL (1.2-4.9); Lymphocytes Percent Auto 8.6 % (20-40); Mean Corpuscular HGB Conc 32.6 g/dl (31.0-35.0); Mean Corpuscular Hemoglobin 26.4 pg (27.0-33.0); Mean Platelet Volume 10.9 fL (9.4-12.3); Monocytes Percent Auto 7.7 % (2-11); Neutrophils Absolute Auto 10.8 X10*3/uL (2.0-8.3); Neutrophils Percent Auto 82.4 % (45-73); Platelet Count 177 X10*3/uL (160-400); Red Blood Count 4.32 X10*6/uL (4.20-5.50); White Blood Count 13.1 X10*3/uL (4.8-10.8)
[2020-04-27 09:58] LABS: Lactic Acid 1.3 mmol/L (0.5-2.0)
[2020-04-27 10:04] LABS: Alanine Aminotransferase 14 U/L (0-31); Albumin Level 3.1 g/dL (3.5-5.0); Alkaline Phosphatase 117 U/L (39-117); Anion Gap 16 (12-20); Aspartate Amino Transferase 12 U/L (5-31); Bilirubin Direct 0.3 mg/dL (0.0-0.5); Bilirubin Total 0.7 mg/dL (0.0-1.0); Blood Urea Nitrogen 33 mg/dL (9-16); Carbon Dioxide 28 mmol/L (22-29); Chloride 92 mmol/L (96-108); Creatinine Clr Calc Pharmacy 49.6; Estimated Glomerular Filt Rate 43; Glucose Random 239 mg/dL (60-115); Lipase 13 U/L (8-78); Potassium 3.9 mmol/l (3.3-5.1); Sodium 132 mmol/L (135-145); Total Protein 5.7 g/dL (6.5-8.0)
[2020-04-27 10:08] LABS: B Type Natriuretic Peptide 69 pg/mL (<100); Troponin-I High Sensitivity 14.6 ng/L (<3.5-17.0)
[2020-04-27] MEDS: Piperacillin Sodium/Tazobactam 3.375 GM in 0.9 % Sodium Chloride 50 ML IV (10:10)
[2020-04-27] MEDS: Acetaminophen 325 MG TABLET 650 MG PO (10:10)
[2020-04-27] MEDS: methylPREDNISolone Sod Succ/PF 125 MG/2 ML VIAL IVPUSH (10:11)
[2020-04-27] MEDS: 0.9 % Sodium Chloride 1,000 ML 999 ML IVCONT (10:12)
[2020-04-27] MEDS: 0.9 % Sodium Chloride 1,000 ML 500 ML IVCONT (10:12)
[2020-04-27 10:27] LABS: SARS COV2 PCR INHOUSE NEGATIVE (Negative)
[2020-04-27 13:28] LABS: Pt Ventilation O2% 40%
[2020-04-27 13:33] LABS: ABG PCO2 58 mmhg (32-45); Base Excess ABG -3.2; HCO3 ABG 25 mmol/l (22-26); Oxygen Saturation ABG 92.9 %; PO2 ABG 80 mmhg (83-108); pH ABG 7.25 (7.35-7.45)
--- NOTE | 2020-04-27 14:34 | CT_ITS ---
EXAMINATION: CT CHEST WITHOUT CONTRAST CLINICAL INFORMATION: Hypoxia COMPARISON: Previous chest x-ray most recent from earlier the same day TECHNIQUE: Multidetector volumetric CT imaging of the chest was done. Axial MIP volume rendering provided. Sagittal and coronal reformatted images were obtained. Exam is limited due to respiratory motion. This CT examination was performed using dose optimization techniques as appropriate, variously including the following: *Automated exposure control *Adjustment of mA and/or kV according to patient size (this includes techniques or standardized protocols for targeted exams where dose is matched to indication/reason for exam; i.e. extremities or head) *Use of iterative reconstruction technique DLP: 592 mGy-cm FINDINGS: CRIPPLE WORKER: Unremarkable LUNGS: Evaluation of the lungs is limited due to respiratory motion. There is dependent atelectasis seen at the lung bases. No evidence of a pneumonia or pneumonitis or pulmonary edema is seen. No endobronchial or endotracheal lesion is seen. MEDIASTINUM: The heart is upper normal in size. There is evidence of mild atherosclerotic disease. There is mild coronary artery calcification. There is no pericardial effusion. The thoracic aorta is normal in caliber. There are small mediastinal lymph nodes. The pulmonary arteries are upper normal in size, main pulmonary artery measuring 3.2 cm. PLEURA: There is no pleural effusion. No pleural mass or thickening. AXILLA: No lymphadenopathy. UPPER ABDOMEN: The gallbladder has been removed. There are bilateral renal calcifications probably representing vascular calcifications. There is evidence of upper midline abdominal wall hernia repair with mesh. OSSEOUS STRUCTURES: There are old left rib fractures. There are degenerative changes of the spine. CT/CT chest wo con IMPRESSION: Limited exam due to respiratory motion. There is bilateral dependent atelectasis. Upper normal-size heart and upper normal-size pulmonary arteries.
--- NOTE | 2020-04-27 14:48 | PC.NURSE ---
per md. hollis order, pt placed on bipap by respiratory therapist. settings 06/05, 30%.
--- NOTE | 2020-04-27 15:33 | PC.NURSE ---
recieved female patient presently asllepp. on bipap. o2 sat 93% patient was able to be aroused through tactile stimulation. intensevist at bedside doing echocardiogram. patient pending admission.
--- NOTE | 2020-04-27 16:22 | PM.CCHP ---
History of Present Illness Date of Service: 04/27/20 Chief Complaint: lethargy and dyspnea 49-year-old female type 2 diabetic and hypertensive with obstructive sleep apnea and morbid obesity presents 2 weeks after her previous admission which she was treated for asthma exacerbation with glucocorticoids and inhalers with recurrent weakness lethargy and dyspnea and chest x-ray essentially clear with no infiltrates normal BNP no cardiac history apparently an acute on chronic hypercarbic and hypoxic respiratory failure presentation and an EKG with sinus tachycardia no ST-T changes Review of Systems Review of Systems: 10 point review of systems essentially negative patient only nods yes or no and because of of degree of lethargy but she is arousable and capable of answering Yes all other systems are reviewed and are negative PMFSH Past Medical History Medical History Acute and chronic respiratory failure, unspecified whether with hypoxia or hypercapnia COPD (chronic obstructive pulmonary disease) COPD exacerbation Diabetes mellitus Diabetes mellitus GERD (gastroesophageal reflux disease) Hernia HTN (hypertension) Obesity (BMI 30-39.9) Obstructive sleep apnea HENRY (obstructive sleep apnea) Respiratory failure Social History Social History Household Members: Family Housing: House Alcohol intake: current Alcohol intake frequency: a few times a month Smoking Status: Current some day smoker Tobacco Type: Cigarette Packs Per Day: 1 Cigarettes Per Day: 20.0 Years Smoked: 30 Second Hand Smoke Exposure: Yes Use of substances other than those prescribed or required for medical reasons: Yes Substance Use Type: Crack/Cocaine Substance Use Type Other:: SMOKES CRACK COCAINE 1 TIME 4 OR 5 DAYS AGO Advance Directives: No Advance Directives Information Provided: No service: No Meds Allergies Allergy/AdvReac Type Severity Reaction Status Date / Time doxycycline Allergy Severe Swelling Verified 04/12/20 16:59 varenicline [From CHANTIX] Allergy Severe ANAPHYLAXIS Verified 04/12/20 16:59 azithromycin Allergy Mild Rash Verified 04/12/20 16:59 cetirizine Allergy Mild Rash Verified 04/12/20 16:59 famotidine Allergy Mild Rash Verified 04/12/20 16:59 linaclotide [Linzess] Allergy Mild Rash Verified 04/12/20 16:59 barium sulfate Allergy Unknown angioedema Verified 01/27/20 00:00 Home Medications Medication Instructions Recorded Confirmed Type albuterol sulfate 90 mcg/actuation 2 puff INHALATION Q6H PRN g 04/08/20 04/27/20 History aerosol inhaler atorvastatin 80 mg tablet 80 mg PO DAILY 04/08/20 04/27/20 History cetirizine 10 mg tablet 10 mg PO DAILY 04/08/20 04/27/20 History cholecalciferol (vitamin D3) 50 50 mcg PO DAILY 04/08/20 04/27/20 History mcg (2,000 unit) capsule Amitiza 24 mcg PO BID 04/12/20 04/27/20 History Stiolto Respimat 2 puff INHALATION DAILY 04/12/20 04/27/20 History Trulicity 0.75 mg SUBCUT QWEEK 04/12/20 04/27/20 History aspirin 81 mg PO DAILY 04/12/20 04/27/20 History carisoprodol 350 mg PO DAILY PRN 04/12/20 04/27/20 History dicyclomine 10 mg PO QID PRN 04/12/20 04/27/20 History furosemide 20 mg PO BID 04/12/20 04/27/20 History ibuprofen 800 mg PO BID PRN 04/12/20 04/27/20 History ipratropium-albuterol 3 ml INHALATION TID 04/12/20 04/27/20 History metformin 500 mg PO QPM 04/12/20 04/27/20 History venlafaxine 225 mg PO DAILY 04/12/20 04/27/20 History baclofen 20 mg PO DAILY PRN 04/27/20 04/27/20 History pantoprazole 40 mg PO BID@0630,1630 04/27/20 04/27/20 History Physical Exam Vital Signs: Vital Signs: Vital Signs Temp Pulse Resp BP Pulse Ox 04/27/20 15:39 19 04/27/20 15:29 98.1 F 87 19 118/63 96 04/27/20 14:48 22 L 119/67 94 04/27/20 14:28 22 H 04/27/20 14:00 24 H 96 04/27/20 13:38 81 24 H 138/73 97 04/27/20 13:10 97 20 142/85 H 95 04/27/20 12:38 91 124/74 04/27/20 11:51 86 L 04/27/20 11:30 99.7 F 04/27/20 11:10 99 30 H 136/66 94 04/27/20 10:12 105 H 112/59 L 99 04/27/20 08:42 101.3 F H 110 H 30 H 93 Body Mass Index 39.6 lethargic and mildly tachypneic but no accessory muscle use nor significant diaphragmatic effort bilateral wheezes and diminished breath sounds good bilateral carotid upstrokes but no bruits no organomegaly abdomen obese but nontender and not distended with good bowel sounds good peripheral pulses with no peripheral edema my bedside echo indicating normal LV and RV size and function and no primary valve or pericardial disease Results Labs Labs: Laboratory Tests 04/27/20 04/27/20 04/27/20 09:20 09:21 09:21 WBC 13.1 H RBC 4.32 Hgb 11.4 L Hct 35.0 L MCV 81.0 MCH 26.4 L MCHC 32.6 RDW 15.0 Plt Count 177 D MPV 10.9 Immature Gran % (Auto) 0.6 H Neut % (Auto) 82.4 H Lymph % (Auto) 8.6 L [place] % (Auto) 7.7 Eos % (Auto) 0.3 Baso % (Auto) 0.4 Lymph # (Auto) 1.1 L [place] # (Auto) 1.0 Eos # (Auto) 0.0 Baso # (Auto) 0.1 Abs Immat Gran (auto) 0.08 H Absolute Neuts (auto) 10.8 H Absolute Nucleated RBC 0.000 Nucleated RBC % (auto) 0.0 ABG pH ABG pCO2 ABG pO2 ABG HCO3 ABG O2 Saturation ABG Base Excess Oxygen Given Sodium 132 L Potassium 3.9 Chloride 92 L Carbon Dioxide 28 Anion Gap 16 BUN 33 H D Creatinine 1.30 Estim Creat Clear Calc 49.6 Estimated GFR 43 Random Glucose 239 H Lactic Acid Calcium 8.0 L Total Bilirubin 0.7 Direct Bilirubin 0.3 AST 12 ALT 14 Alkaline Phosphatase 117 Troponin I High Sens B-Natriuretic Peptide Total Protein 5.7 L Albumin 3.1 L Lipase 13 Coronavirus (PCR) NEGATIVE 04/27/20 04/27/20 04/27/20 09:21 09:22 12:07 WBC RBC Hgb Hct MCV MCH MCHC RDW Plt Count MPV Immature Gran % (Auto) Neut % (Auto) Lymph % (Auto) [place] % (Auto) Eos % (Auto) Baso % (Auto) Lymph # (Auto) [place] # (Auto) Eos # (Auto) Baso # (Auto) Abs Immat Gran (auto) Absolute Neuts (auto) Absolute Nucleated RBC Nucleated RBC % (auto) ABG pH Cancelled ABG pCO2 Cancelled ABG pO2 Cancelled ABG HCO3 Cancelled ABG O2 Saturation Cancelled ABG Base Excess Cancelled Oxygen Given Cancelled Sodium Potassium Chloride Carbon Dioxide Anion Gap BUN Creatinine Estim Creat Clear Calc Estimated GFR Random Glucose Lactic Acid 1.3 Calcium Total Bilirubin Direct Bilirubin AST ALT Alkaline Phosphatase Troponin I High Sens 14.6 D B-Natriuretic Peptide 69 Total Protein Albumin Lipase Coronavirus (PCR) 04/27/20 13:18 WBC RBC Hgb Hct MCV MCH MCHC RDW Plt Count MPV Immature Gran % (Auto) Neut % (Auto) Lymph % (Auto) [place] % (Auto) Eos % (Auto) Baso % (Auto) Lymph # (Auto) [place] # (Auto) Eos # (Auto) Baso # (Auto) Abs Immat Gran (auto) Absolute Neuts (auto) Absolute Nucleated RBC Nucleated RBC % (auto) ABG pH 7.25 L ABG pCO2 58 H ABG pO2 80 L ABG HCO3 25 ABG O2 Saturation 92.9 ABG Base Excess -3.2 Oxygen Given 40% Sodium Potassium Chloride Carbon Dioxide Anion Gap BUN Creatinine Estim Creat Clear Calc Estimated GFR Random Glucose Lactic Acid Calcium Total Bilirubin Direct Bilirubin AST ALT Alkaline Phosphatase Troponin I High Sens B-Natriuretic Peptide Total Protein Albumin Lipase Coronavirus (PCR) Assessment and Plan (1) COPD (chronic obstructive pulmonary disease): Status: Acute (2) Knee pain, bilateral: Qualifiers: Chronicity: unspecified Qualified Code(s): M25.561 - Pain in right knee; M25.562 - Pain in left knee Status: Acute (3) GERD (gastroesophageal reflux disease): Status: Acute (4) Respiratory failure with hypercapnia: Qualifiers: Chronicity: acute on chronic Qualified Code(s): J96.22 - Acute and chronic respiratory failure with hypercapnia Status: Acute (5) Nausea & vomiting: Qualifiers: Vomiting Intractability: unspecified Vomiting type: unspecified Qualified Code(s): R11.2 - Nausea with vomiting, unspecified Status: Acute (6) Acute and chronic respiratory failure, unspecified whether with hypoxia or hypercapnia: Status: Acute so once again I plan BiPAP support continuously in through the night repeat blood gas to document improvement in hypercarbia high-dose glucocorticoids along with nebulized inhalers was given 1 dose of Zosyn in the emergency room and a CT scan of the chest is pending and I will covering with 1 dose of Levaquin for possible atypical infected and and to cover until we get back the Legionella urinary antigen
[2020-04-27] MEDS: Dextrose 5 % and 0.45 % NaCl 1,000 ML 100 ML IVCONT (16:58)
[2020-04-27] MEDS: Enoxaparin Sodium 40 MG/0.4 ML SYRINGE SUBCUT (17:15)
[2020-04-27 19:13] LABS: Erythrocyte Sedimentation Rate 94 MM/HR (0-20)
--- NOTE | 2020-04-27 20:15 | PC.NURSE ---
PHARMACY AWARE OF PATIENTS LEVAQUIN NOT AVAILBLE IN [place] WILL BRING IT DOWN WHEN AVAILABLE
[2020-04-27 20:34] LABS: PCO2 VBG 38 mmhg; PO2 VBG 91 mmhg; pH VBG 7.36 (7.32-7.43)
[2020-04-27 20:35] LABS: Base Excess VBG -4.2 mmol/L; Blood Gas Serial # 5414; HCO3 VBG 21 mmol/L
[2020-04-27] MEDS: Albuterol/Iprat 2.5/0.5MG 3 ML AMPUL.NEB INHALE (20:48)
[2020-04-27] MEDS: levoFLOXacin/D5W 750 MG/150 ML PIGGYBACK 100 MG IV (21:15)
[2020-04-27] MEDS: Insulin Lispro 100 UNIT/ML 3 ML VIAL SUBCUT (22:50)
[2020-04-27 22:51] LABS: Glucose, Whole Blood 589 mg/dL (60-115)
[2020-04-27] MEDS: 0.9 % Sodium Chloride Flush 3 ML SYRINGE IVFLUSH (22:55)
[2020-04-28] VITALS (13 sets, daily range): BP systolic 111–138; BP diastolic 55–81; PULSE 73–92; RESP 12–24; TEMP 36.4–36.6; O2SAT 90–99; BMI 39.6
[2020-04-28] MEDS: Gabapentin 600 MG TABLET PO ×4 (02:28→21:41)
--- NOTE | 2020-04-28 05:05 | PM.CCPN ---
Subjective Subjective Date of Service: 04/28/20 Interval History: 49-year-old female with morbid obesity and probable Pickwickian as well as COPD and asthma who was here 2 weeks ago with an acute exacerbation of asthma but non infectious and repeat presents now with a an exacerbation and acute on chronic hypercarbic and hypoxic respiratory failure and immediately turned around on a short time of BiPAP and off BiPAP her pCO2 is currently 38 and very comfortable and wheeze free upon blood culturing when she presented we got back to out of 2 sets positive for Gram-negative rods and she is currently on Levaquin and were awaiting a species and sensitivities but she did get a dose of Zosyn in the emergency room but as she is not producing sputum and chest x-ray did not show a distinct infiltrate although there were some bronchiectatic features I sent a urine for culture which was not done at to see if that is potentially the source of the Gram-negative rods she is a type 2 diabetic who was given a high dose of steroids and her glucose became up to over 500 and is currently being covered subcutaneously Physical Exam Vital Signs: Vital Signs: Vital Signs Temp Pulse Resp BP Pulse Ox 04/28/20 04:00 75 04/28/20 03:22 21 H 04/28/20 03:00 76 12 125/80 94 04/28/20 02:00 84 24 H 121/68 96 04/28/20 01:00 98 F 79 16 121/73 94 04/27/20 22:56 98.1 F 93 118/70 94 04/27/20 20:26 89 18 148/74 H 94 04/27/20 15:39 19 04/27/20 15:29 98.1 F 87 19 118/63 96 04/27/20 14:48 22 L 119/67 94 04/27/20 14:28 22 H 04/27/20 14:00 24 H 96 04/27/20 13:38 81 24 H 138/73 97 04/27/20 13:10 97 20 142/85 H 95 04/27/20 12:38 91 124/74 04/27/20 11:51 86 L 04/27/20 11:30 99.7 F 04/27/20 11:10 99 30 H 136/66 94 04/27/20 10:12 105 H 112/59 L 99 04/27/20 08:42 101.3 F H 110 H 30 H 93 Body Mass Index 39.6 Const: Other: good cognitive function now awake and oriented neurologically nonfocal cardiac exam with normal S1 and normal S2 and no gallops and she has good bilateral carotid upstrokes and no neck vein distension good bilateral peripheral pulses and no acrocyanosis and no edema abdomen and is obese but the nontender nondistended no organomegaly chest without respiratory effort no adventitious sounds the no accessory muscle use Objective Data Labs CBC & Chem 7: 04/27/20 09:21 04/27/20 09:21 Labs: Laboratory Results - last 24 hr 04/27/20 04/27/20 04/27/20 09:20 09:21 09:21 WBC 13.1 H RBC 4.32 Hgb 11.4 L Hct 35.0 L MCV 81.0 MCH 26.4 L MCHC 32.6 RDW 15.0 Plt Count 177 D MPV 10.9 Immature Gran % (Auto) 0.6 H Neut % (Auto) 82.4 H Lymph % (Auto) 8.6 L [place] % (Auto) 7.7 Eos % (Auto) 0.3 Baso % (Auto) 0.4 Lymph # (Auto) 1.1 L [place] # (Auto) 1.0 Eos # (Auto) 0.0 Baso # (Auto) 0.1 Abs Immat Gran (auto) 0.08 H Absolute Neuts (auto) 10.8 H Absolute Nucleated RBC 0.000 Nucleated RBC % (auto) 0.0 ESR ABG pH ABG pCO2 ABG pO2 ABG HCO3 ABG O2 Saturation ABG Base Excess VBG pH VBG pCO2 VBG Oxygen Liters/Min VBG pO2 VBG HCO3 VBG O2 Saturation VBG Base Excess Oxygen Given Sodium 132 L Potassium 3.9 Chloride 92 L Carbon Dioxide 28 Anion Gap 16 BUN 33 H D Creatinine 1.30 Estim Creat Clear Calc 49.6 Estimated GFR 43 POC Glucose Random Glucose 239 H Lactic Acid Calcium 8.0 L Total Bilirubin 0.7 Direct Bilirubin 0.3 AST 12 ALT 14 Alkaline Phosphatase 117 Troponin I High Sens B-Natriuretic Peptide Total Protein 5.7 L Albumin 3.1 L Lipase 13 Coronavirus (PCR) NEGATIVE 04/27/20 04/27/20 04/27/20 09:21 09:21 09:22 WBC RBC Hgb Hct MCV MCH MCHC RDW Plt Count MPV Immature Gran % (Auto) Neut % (Auto) Lymph % (Auto) [place] % (Auto) Eos % (Auto) Baso % (Auto) Lymph # (Auto) [place] # (Auto) Eos # (Auto) Baso # (Auto) Abs Immat Gran (auto) Absolute Neuts (auto) Absolute Nucleated RBC Nucleated RBC % (auto) ESR 94 H ABG pH ABG pCO2 ABG pO2 ABG HCO3 ABG O2 Saturation ABG Base Excess VBG pH VBG pCO2 VBG Oxygen Liters/Min VBG pO2 VBG HCO3 VBG O2 Saturation VBG Base Excess Oxygen Given Sodium Potassium Chloride Carbon Dioxide Anion Gap BUN Creatinine Estim Creat Clear Calc Estimated GFR POC Glucose Random Glucose Lactic Acid 1.3 Calcium Total Bilirubin Direct Bilirubin AST ALT Alkaline Phosphatase Troponin I High Sens 14.6 D B-Natriuretic Peptide 69 Total Protein Albumin Lipase Coronavirus (PCR) 04/27/20 04/27/20 04/27/20 12:07 13:18 20:19 WBC RBC Hgb Hct MCV MCH MCHC RDW Plt Count MPV Immature Gran % (Auto) Neut % (Auto) Lymph % (Auto) [place] % (Auto) Eos % (Auto) Baso % (Auto) Lymph # (Auto) [place] # (Auto) Eos # (Auto) Baso # (Auto) Abs Immat Gran (auto) Absolute Neuts (auto) Absolute Nucleated RBC Nucleated RBC % (auto) ESR ABG pH Cancelled 7.25 L ABG pCO2 Cancelled 58 H ABG pO2 Cancelled 80 L ABG HCO3 Cancelled 25 ABG O2 Saturation Cancelled 92.9 ABG Base Excess Cancelled -3.2 VBG pH 7.36 VBG pCO2 38 VBG Oxygen Liters/Min TNP VBG pO2 91 VBG HCO3 21 VBG O2 Saturation 97.0 VBG Base Excess -4.2 Oxygen Given Cancelled 40% Sodium Potassium Chloride Carbon Dioxide Anion Gap BUN Creatinine Estim Creat Clear Calc Estimated GFR POC Glucose Random Glucose Lactic Acid Calcium Total Bilirubin Direct Bilirubin AST ALT Alkaline Phosphatase Troponin I High Sens B-Natriuretic Peptide Total Protein Albumin Lipase Coronavirus (PCR) 04/27/20 22:46 WBC RBC Hgb Hct MCV MCH MCHC RDW Plt Count MPV Immature Gran % (Auto) Neut % (Auto) Lymph % (Auto) [place] % (Auto) Eos % (Auto) Baso % (Auto) Lymph # (Auto) [place] # (Auto) Eos # (Auto) Baso # (Auto) Abs Immat Gran (auto) Absolute Neuts (auto) Absolute Nucleated RBC Nucleated RBC % (auto) ESR ABG pH ABG pCO2 ABG pO2 ABG HCO3 ABG O2 Saturation ABG Base Excess VBG pH VBG pCO2 VBG Oxygen Liters/Min VBG pO2 VBG HCO3 VBG O2 Saturation VBG Base Excess Oxygen Given Sodium Potassium Chloride Carbon Dioxide Anion Gap BUN Creatinine Estim Creat Clear Calc Estimated GFR POC Glucose 589 H* Random Glucose Lactic Acid Calcium Total Bilirubin Direct Bilirubin AST ALT Alkaline Phosphatase Troponin I High Sens B-Natriuretic Peptide Total Protein Albumin Lipase Coronavirus (PCR) Microbiology Microbiology Results: Microbiology 04/27/20 09:20 Blood - Venous Blood Culture - Preliminary 04/27/20 09:36 Blood - Venous Blood Culture - Preliminary Progress Note: A&P Assessment and plan (1) Acute and chronic respiratory failure, unspecified whether with hypoxia or hypercapnia: Status: Acute (2) COPD (chronic obstructive pulmonary disease): Status: Acute (3) Knee pain, bilateral: Status: Acute (4) GERD (gastroesophageal reflux disease): Status: Acute (5) Respiratory failure with hypercapnia: Status: Acute (6) Nausea & vomiting: Status: Acute Assessment and Plan: acute on chronic hypercarbic / hypoxic respiratory failure possibly it at infectious on the basis of bronchiectasis and thus far 2/2 blood cultures growing Gram-negative rods source yet to be differentiated between chest and urine and those studies are pending and she remains only on Levaquin so we still await the sensitivities and the pending those results might want to continue at least a p.o. Augmentin or possibly maintain IV Zosyn no longer needs continuous BiPAP that could still be used on a p.r.n. basis nocturnally possibly begin tapering her steroids Time Spent With Patient Time: Total time spent is greater than 50% in coordination of care (as documented) at patient's floor/unit and/or counseling patient: Total time spent with greater than 50% in coordination of care (as documented) at patient's floor/unit and/or counseling patient:: 30
--- NOTE | 2020-04-28 05:39 | PC.NURSE ---
PT ADMITTED TO ICU FROM ED AT APPROX 2200. PT A&OX4. NSR ON TELE. SBP WNL. PLACED ON BIPAP OVERNIGHT 14/6/30%, TOLERATED WELL. MD AWARE OF LABS. POC 589, 15 UNITS SSI GIVEN PER PSYCHOPAEDIC NURSE ORDER. MEDICATED PER EMAR. OOB TO [facility]. PT AWARE OF PLAN OF CARE. TO BE TRANSFERED TO [facility], REPORT GIVEN TO [facility] RN.
[2020-04-28 05:50] LABS: Basophils Percent Auto 0.3 % (0-2); Hematocrit 32.1 % (37-47); Hemoglobin 10.4 g/dl (12.0-16.0); Imm Gran Abs Auto 0.07 X10*3/uL (0.00-0.03); Imm Gran Pct Auto 0.6 % (0.0-0.4); Lymphocytes Absolute Auto 0.6 X10*3/uL (1.2-4.9); Lymphocytes Percent Auto 5.4 % (20-40); MANUAL DIFF FLAG SCAN; Mean Corpuscular HGB Conc 32.4 g/dl (31.0-35.0); Mean Corpuscular Hemoglobin 26.5 pg (27.0-33.0); Mean Corpuscular Volume 81.9 fL (80-98); Monocytes Absolute Auto 0.7 X10*3/uL (0.1-1.2); Monocytes Percent Auto 5.9 % (2-11); Neutrophils Absolute Auto 10.2 X10*3/uL (2.0-8.3); Neutrophils Percent Auto 87.8 % (45-73); Platelet Count 159 X10*3/uL (160-400); Red Blood Count 3.92 X10*6/uL (4.20-5.50); Red Cell Distribution Width 15.3 % (11.0-16.0); SCAN SMEAR FLAG 1; White Blood Count 11.6 X10*3/uL (4.8-10.8)
[2020-04-28 06:17] LABS: SLIDE REVIEW VERIFIED
[2020-04-28 06:18] LABS: Base Excess VBG -0.8 mmol/L; Blood Gas Serial # 5396; HCO3 VBG 24 mmol/L; Oxygen Saturation VBG 86.9 %; PCO2 VBG 41 mmhg; PO2 VBG 51 mmhg; pH VBG 7.39 (7.32-7.43)
[2020-04-28] MEDS: Enoxaparin Sodium 40 MG/0.4 ML SYRINGE SUBCUT ×2 (06:25→17:08)
[2020-04-28 06:30] LABS: Alanine Aminotransferase 14 U/L (0-31); Albumin Level 2.9 g/dL (3.5-5.0); Alkaline Phosphatase 101 U/L (39-117); Anion Gap 16 (12-20); Aspartate Amino Transferase 11 U/L (5-31); Bilirubin Total 0.6 mg/dL (0.0-1.0); Blood Urea Nitrogen 37 mg/dL (9-16); Calcium 7.6 mg/dL (8.4-10.2); Carbon Dioxide 23 mmol/L (22-29); Chloride 94 mmol/L (96-108); Creatinine Clr Calc Pharmacy 50.1; Estimated Glomerular Filt Rate 44; Glucose Random 554 mg/dL (60-115); Magnesium 2.3 mg/dL (1.6-2.6); Potassium 3.9 mmol/l (3.3-5.1); Sodium 129 mmol/L (135-145); Total Protein 5.2 g/dL (6.5-8.0)
[2020-04-28 07:37] LABS: Glucose, Whole Blood 520 mg/dL (60-115)
[2020-04-28] MEDS: Albuterol/Iprat 2.5/0.5MG 3 ML AMPUL.NEB INHALE ×4 (07:48→20:42)
--- NOTE | 2020-04-28 08:16 | P.CDIC_ITS ---
CDI Concurrent Query Service Date: 04/28/20 Documentation Clarification: Please clarify if you are treating a proba ble/suspected/likely or confirmed: Specifics: COPD Exacerbation-yes COPD Please specify if known or other Provider Response: Other Other Diagnosis: copd excerebation PLEASE DO NOT DELETE/MODIFY EXISTING CONTENT Additional information is needed in order to code to the highest accuracy and appropriate Severity of Illness (SOI). Please clarify the information noted below in your progress notes and discharge summary. Risk Factors/Clinical Indicators/Treatments Patient admit for acute hypercapnia respiratory failure and COPD. Albuterol, IV fluids, supplemental oxygen, Lovenox. CDS: Brandi Lizama CCS, CDIS Contact Number: [phone] Please Review the information above and exercise your independent professional judgment in responding to the query. If you concur, pleas document in the PROGRESS NOTES and DISCHARGE SUMMARY. If you do not agree with the query, please document in the query above. THIS QUERY IS PART OF THE PERMANENT MEDICAL RECORD
[2020-04-28] MEDS: Insulin Lispro 100 UNIT/ML 3 ML VIAL SUBCUT ×3 (08:31→21:41)
[2020-04-28] MEDS: Insulin Regular, Human 100 UNIT/ML 3 ML VIAL 10 UNIT SUBCUT (08:31)
[2020-04-28] MEDS: 0.9 % Sodium Chloride Flush 3 ML SYRINGE IVFLUSH ×2 (08:32→17:07)
[2020-04-28] MEDS: Insulin Glargine,Hum.rec.anlog 100 UNIT/ML 10 ML VIAL 10 UNIT SUBCUT (09:36)
[2020-04-28 10:02] LABS: Bilirubin Direct 0.2 mg/dL (0.0-0.5)
[2020-04-28 10:26] LABS: Estimated Average Glucose 338 mg/dL; Hemoglobin A1c % 13.4 %
[2020-04-28 10:27] LABS: INTERNATIONAL NORM RATIO 1.1 (0.9-1.1); Prothrombin Time 13.6 SEC (10.8-13.0)
[2020-04-28 11:12] LABS: Glucose, Whole Blood 546 mg/dL (60-115)
--- NOTE | 2020-04-28 11:41 | MHC.CM.PN ---
CM met with patient at the bedside who reports she amb with a walker/cane, lives with , dtr and 2 sons and does have a BIPAP at night from [facility]. Patient is also active with [facility] and has [employer]ORD[employer]ATOR services with [employer]. Patient does have a HCP/dtr [facility] [phone] and a copy is on file. Discussed discharge plan, home with resumption of services with [facility], referral made via [employer]scripts. resumption of [employer] COORDINATOR services. Dtr/HCP will provide transportation. CM will continue to follow for discharge needs.
[2020-04-28] MEDS: Insulin Lispro 100 UNIT/ML 3 ML VIAL 20 UNIT SUBCUT (12:25)
[2020-04-28 13:34] LABS: Glucose, Whole Blood 514 mg/dL (60-115)
[2020-04-28] MEDS: 0.9 % Sodium Chloride 500 ML 80 ML IV (14:00)
[2020-04-28 15:05] LABS: Glucose, Whole Blood 415 mg/dL (60-115)
[2020-04-28] MEDS: Milk of Magnesia 30 ML ORAL.SUSP PO ×2 (16:10→19:22)
[2020-04-28 16:44] LABS: Glucose, Whole Blood 334 mg/dL (60-115)
[2020-04-28] MEDS: levoFLOXacin/D5W 750 MG/150 ML PIGGYBACK 100 MG IV (17:55)
--- NOTE | 2020-04-28 20:15 | CONS_ITS ---
DATE OF SERVICE: 04/28/2020 REQUETING PHYSICIAN: Dr. Burton. HISTORY OF PRESENT ILLNESS: The patient is a 49-year-old female, well known case of morbid obesity, COPD, chronic respiratory failure, obstructive sleep apnea, along with diabetes mellitus, hypertension, was admitted on 04/27 with increased dyspnea and lethargy. No fever or chills. It should be noted that she was discharged only 2 weeks ago after treatment of an acute exacerbation of bronchial asthma, COPD. The patient claimed that she was using her medications regularly and she was using her CPAP at night. On presentation to the emergency room, her initial arterial blood gases were abnormal with pH 7.25, pCO2 58, and pO2 of 80. The patient needed noninvasive ventilatory support and was admitted to intensive care unit. She has been treated with Levaquin for antibiotic coverage, CPAP/BiPAP at nighttime. DuoNeb updrafts, oxygen supplementation and has improved with normalization of her pCO2, thus she is moved to the IMC unit. At present, she denies any chest pain, cough, or wheezing. She is short of breath as usual. Her O2 saturation is okay on room air and she is already showing her desire to go home. PAST MEDICAL HISTORY: Reviewed and is documented in the medical records includes: 1. Long-standing gross obesity. 2. HENRY/hypoventilation syndrome. 3. Chronic obstructive pulmonary disease. 4. Diabetes mellitus. 5. Hypertension. 6. GERD symptoms. 7. Ongoing smoking. REVIEW OF SYSTEMS: Revealed that she remains somewhat tired and gets short of breath very easily. Denies any other significant problems. She does smoke about half pack of cigarettes a day. ALLERGIES: SHE HAS HISTORY OF ALLERGY TO AZITHROMYCIN, DOXYCYCLINE, AND OTHER MEDICATIONS AND ALSO HAS HAD UNTOWARD REACTION TO CHANTIX. SOCIAL HISTORY: Past history of using crack cocaine, but stopped from before her last admission. MEDICATIONS: At home, she was using Stiolto 2 inhalations daily and DuoNeb updrafts 3 to 4 times a day. PHYSICAL EXAMINATION: GENERAL: A 49-year-old female is grossly obese with puffy face and features of cushingoid syndrome. HEENT: Throat is crowded, but no definite infection noted. NECK: No obvious jugular venous distention. Trachea midline. CHEST: Chest wall is grossly obese. Percussion note not perceptible. Breath sounds are distant on both sides with prolonged expiratory phase. No wheezes or rhonchi are heard. CARDIAC: Sounds are distant rhythm, regular, no murmurs. ABDOMEN: Grossly obese, but soft and nontender. EXTREMITIES: No edema or varicosities. DIAGNOSTIC AND LABORATORY DATA: Chest x-ray does not show any acute infiltrate. Blood cultures x2 showed gram-negative rods. Arterial blood gases on admission; pH 7.25, pCO2 58, PO2 of 80 with a venous blood gases on 04/27, pH 7.36, pCO2 38, and pO2 of 91. CLINICAL IMPRESSION: 1. Morbid obesity. 2. Chronic obstructive sleep apnea/hypoventilation syndrome. 3. Chronic obstructive pulmonary disease. 4. Active smoker. 5. Acute on chronic respiratory failure on this admission has improved. 6. Gram-negative bacteremia, questionable secondary to urinary tract infection. RECOMMENDATIONS: 1. I think from respiratory point of view, she has recovered and is back to her baseline. 2. Complete the course of Levaquin depending upon the results of urine culture and sensitivities. The antibiotic may be adjusted. 3. The patient has to use her CPAP regularly at night. 4. Does not require oxygen at this time. 5. DuoNeb updrafts q.6 hours while awake. 6. Stiolto 2 inhalation daily, which she has at home. 7. The patient has to stop smoking completely and will be okay for her to use the nicotine patch, which she has at home. 8. Needs to do deep breathing exercises. 9. When pulmonary rehab program is open, she should participate in that. 10. She should be followed closely as outpatient. Thank you very much for asking me to see this patient. MD KAL Maldonado/ZABRINA / [id number]
[2020-04-28 20:55] LABS: Glucose, Whole Blood 406 mg/dL (60-115)
[2020-04-28] MEDS: TiZANidine HCL 4 MG TABLET PO (21:58)
[2020-04-28 22:47] LABS: Glucose Urine UA >=1000 MG/DL (NEG); Leukocyte Esterase Urine NEG (NEG); Nitrite Urine NEG (NEG); Specific Gravity - Urine 1.015 (1.005-1.025); Urine Blood 1+ (NEG); Urine Ketones NEG (NEG); Urine Protein TRACE MG/DL (NEG-TRACE)
[2020-04-28 22:48] LABS: Appearance Urine CLEAR; Color Urine YELLOW
[2020-04-28 23:01] LABS: RBC Urine 0-2 /HPF (0); Squamous Epithelial Cell Urine 1+ /LPF
[2020-04-28 23:22] LABS: Amphetamine Screen Urine Not Detected (Not Detect); Barbiturates, Urine Not Detected (Not Detect); Benzodiazepines Screen Urine Not Detected (Not Detect); Cannabinoid Screen Urine Not Detected (Not Detect); Cocaine Screen Urine Not Detected (Not Detect); Opiate Screen Urine Not Detected (Not Detect); Phencyclidine Screen Urine Not Detected (Not Detect)
[2020-04-29] VITALS (8 sets, daily range): BP systolic 102–160; BP diastolic 57–95; PULSE 78–121; RESP 18–24; TEMP 35.8–39.1; O2SAT 91–98
--- NOTE | 2020-04-29 | CT_ITS ---
EXAMINATION: CT ABDOMEN AND PELVIS WITHOUT CONTRAST CLINICAL INFORMATION: UTI. Bacteremia. COMPARISON: CT abdomen pelvis 07/06/2015 TECHNIQUE: Multidetector volumetric imaging was performed from the superior aspect of the liver through the pubic symphysis. Sagittal and coronal reformatted images were obtained on the technologist's workstation. This CT examination was performed using dose optimization techniques as appropriate, variously including the following: *Automated exposure control *Adjustment of mA and/or kV according to patient size (this includes techniques or standardized protocols for targeted exams where dose is matched to indication/reason for exam; i.e. extremities or head) *Use of iterative reconstruction technique DLP: 801 mGy-cm FINDINGS: LUNG BASES: Linear parenchymal scarring at both lung bases. No infiltrate or pleural effusion. LIVER, GALLBLADDER, AND BILIARY TREE: The liver is normal in size, shape, and attenuation. No focal hepatic lesion or biliary ductal dilatation is present. Status post cholecystectomy PANCREAS: Unremarkable. SPLEEN: Unremarkable. ADRENAL GLANDS: Unremarkable. KIDNEYS AND URETERS: There is no renal or ureteral calculi. There is no hydronephrosis. There are small vascular calcifications present in the right and left indio. The kidneys are of normal size and contour with normal cortical thickness. BLADDER: Unremarkable. GASTROINTESTINAL TRACT: The small and large bowel are unremarkable. The appendix is unremarkable. ABDOMINAL WALL: Surgical mesh at the lower anterior abdominal and pelvic wall. No recurrent hernia in this area. There is a small fat-containing umbilical hernia. This is unchanged since CAT scan of 07/06/2015. There is surgical mesh at the umbilicus as well. LYMPH NODES: Normal. VASCULAR: Scattered vascular calcifications throughout the abdomen and pelvis. There is no aneurysm of the aorta. PELVIC VISCERA: Unremarkable. OSSEOUS STRUCTURES: Mild to moderate degenerative spondylosis of the spine. CT/CT abdomen pelvis wo con IMPRESSION: 1. No acute abnormality the abdomen and pelvis. 2. Status post anterior abdominal wall surgical mesh at the umbilicus and lower pelvis but no recurrent hernia. There is a small fat-containing umbilical hernia unchanged since prior study of 07/06/2015. 3. Status post cholecystectomy. 4. No acute abnormality of the kidneys, ureter and bladder.
[2020-04-29] MEDS: 0.9 % Sodium Chloride Flush 3 ML SYRINGE IVFLUSH ×4 (00:09→17:12)
[2020-04-29] MEDS: Enoxaparin Sodium 40 MG/0.4 ML SYRINGE SUBCUT ×2 (05:54→17:11)
[2020-04-29 06:17] LABS: MANUAL DIFF FLAG NO
[2020-04-29 06:38] LABS: Basophils Percent Auto 0.2 % (0-2); Hematocrit 35.3 % (37-47); Hemoglobin 11.5 g/dl (12.0-16.0); Imm Gran Abs Auto 0.12 X10*3/uL (0.00-0.03); Imm Gran Pct Auto 0.8 % (0.0-0.4); Lymphocytes Absolute Auto 0.8 X10*3/uL (1.2-4.9); Mean Corpuscular HGB Conc 32.6 g/dl (31.0-35.0); Mean Corpuscular Hemoglobin 26.5 pg (27.0-33.0); Mean Corpuscular Volume 81.3 fL (80-98); Mean Platelet Volume 11.3 fL (9.4-12.3); Monocytes Percent Auto 6.8 % (2-11); Neutrophils Percent Auto 87.2 % (45-73); Platelet Count 198 X10*3/uL (160-400); Red Blood Count 4.34 X10*6/uL (4.20-5.50); Red Cell Distribution Width 15.3 % (11.0-16.0); White Blood Count 14.9 X10*3/uL (4.8-10.8)
[2020-04-29 06:53] LABS: Anion Gap 18 (12-20); Blood Urea Nitrogen 39 mg/dL (9-16); Carbon Dioxide 25 mmol/L (22-29); Chloride 94 mmol/L (96-108); Creatinine Clr Calc Pharmacy 51.5; Estimated Glomerular Filt Rate 45; Glucose Random 370 mg/dL (60-115); Potassium 4.5 mmol/l (3.3-5.1); Sodium 132 mmol/L (135-145)
[2020-04-29] MEDS: Albuterol/Iprat 2.5/0.5MG 3 ML AMPUL.NEB INHALE ×4 (07:35→19:32)
[2020-04-29 08:29] LABS: Glucose, Whole Blood 376 mg/dL (60-115)
[2020-04-29] MEDS: Insulin Lispro 100 UNIT/ML 3 ML VIAL SUBCUT ×2 (08:41→09:00)
[2020-04-29] MEDS: Gabapentin 600 MG TABLET PO ×4 (08:41→20:31)
[2020-04-29] MEDS: Insulin Glargine,Hum.rec.anlog 100 UNIT/ML 10 ML VIAL 10 UNIT SUBCUT (08:42)
[2020-04-29 09:13] LABS: Anion Gap 15 (12-20); Blood Urea Nitrogen 38 mg/dL (9-16); Calcium 7.9 mg/dL (8.4-10.2); Carbon Dioxide 24 mmol/L (22-29); Chloride 94 mmol/L (96-108); Creatinine Clr Calc Pharmacy 51.9; Estimated Glomerular Filt Rate 46; Glucose Random 458 mg/dL (60-115); Potassium 4.4 mmol/l (3.3-5.1); Sodium 129 mmol/L (135-145)
[2020-04-29] MEDS: TiZANidine HCL 4 MG TABLET PO (09:53)
[2020-04-29] MEDS: glipiZIDE 10 MG TABLET PO (09:56)
[2020-04-29 10:29] LABS: Glucose, Whole Blood 294 mg/dL (60-115)
--- NOTE | 2020-04-29 11:51 | P.DS_ITS ---
DS: Providers Provider Date of admission: 04/27/20 16:07 Primary care physician: Unknown Physician Consults: 04/28/20 09:20 Consult to Pulmonology Routine Consulting Provider: Fletcher Castro Reason for consultation: COPD Execrebation , dm with uncontrolled hyperglycemia ? relate dto steriod DS: Diagnosis Discharge Diagnosis (1) Acute and chronic respiratory failure, unspecified whether with hypoxia or hypercapnia: Status: Acute (2) COPD (chronic obstructive pulmonary disease): Status: Acute (3) Knee pain, bilateral: Status: Acute (4) GERD (gastroesophageal reflux disease): Status: Acute (5) Respiratory failure with hypercapnia: Status: Acute (6) Nausea & vomiting: Status: Acute DS: Summary Hospital Course Hospital Course: Date of service and discharge: 04/30/2020 HPI: 49-year-old lady, active 20+ pack-year smoker, with underlying history of asthma / COPD overlap syndrome, HENRY, hypertension, diabetes mellitus, congestive heart failure, depression admitted on 04/12/2020 with 2-day history of worsening dyspnea. On ER evaluation patient was noted to be in acute exacerbation of underlying COPD resulting in acute on chronic hypoxic and hypercapnic respiratory failure requiring BiPAP support. She has been started on nebulized bronchodilators and systemic glucocorticoids and admitted to intensive care unit. Hospital Course problem sims section: 1.Acute on chronic hypoxic and hypercapnic respiratory failure secondary to exacerbation of underlying COPD. Patient was initially admitted to ICU where she required BiPAP, nebs and steroids, also her blood culture came out to be Gram-negative bacteria so she was started on Levaquin in ICU. Subsequently patient was seen by pulm Dr. Castro : Recommended to quit smoking, use CPAP regularly at night, Neb updrafts q.6 hours , Stiolto 2 inhalation daily,will add nicotein patch also. Subsequently patient's blood culture came out to be E coli sensitive to Levaquin, patient was seen by infectious disease and recommended CT abdomen which seem out to be grossly fine: Patient is going to go home with Levaquin 14 days as per Infectious Disease. 2. DM : Fingersticks were initially uncontrolled due to multifactorial issue patient received still steroid due to COPD and patient is not using her home metformin as per patient. We will give small dose of glipizide, she said she was not using her Trulicity also so she is going to start using that. Hemoglobin A1c is 13.4 Her because of her fluctuating blood sugars in between hypoglycemic range. we will adjust currently p.o. glipizide and Trulicity, patient is aware to monitor her fingersticks at home and if consistently elevated more than 200-may need further management as per PCP 3. constipation: given enema -not bm yet added coace and miralex. Above management discussed with the patient in detail length she understand and in agreement with the above plan, time spent 50 minutes and 50% time spent on counseling. Significant findings: As above. Procedures performed: None. Treatment and response: As above. Complications: None. Time Spent with Patient Time attestation: Total time spent providing and/or coordinating discharge services: Physical Exam Vital Signs: Vital Signs: Vital Signs Temp Pulse Resp BP Pulse Ox 04/29/20 08:00 98 F 98 18 155/79 H 93 04/29/20 03:52 96.4 F L 78 18 131/95 H 98 04/28/20 23:56 97.5 F 86 18 111/57 L 94 04/28/20 22:00 17 04/28/20 19:27 97.7 F 92 18 117/55 L 90 L 04/28/20 15:49 98 F 92 16 128/60 94 Body Mass Index 39.6 Physical exam: Cvs: [id number], [id number] , no murmur res: clear to auscultation ,no rhonchii or wheezing abd: no rebound or guarding ,nt, bs present. ext pulses present , no cyanosis neuro: axo3 , nonfocal. DS: Data Data Completed and Pending Completed studies during hospitalization [Text1]: Procedures Assistance with Respiratory Ventilation, Less than 24 Consecutive Hours, Continuous Positive Airway Pressure (04/12/20) Labs on day of discharge: Labs from last 24 hours 04/29/20 04/29/20 04/29/20 10:25 08:24 07:39 WBC RBC Hgb Hct MCV MCH MCHC RDW Plt Count MPV Immature Gran % (Auto) Neut % (Auto) Lymph % (Auto) [place] % (Auto) Eos % (Auto) Baso % (Auto) Lymph # (Auto) [place] # (Auto) Eos # (Auto) Baso # (Auto) Abs Immat Gran (auto) Absolute Neuts (auto) Absolute Nucleated RBC Nucleated RBC % (auto) Sodium 129 L Potassium 4.4 Chloride 94 L Carbon Dioxide 24 Anion Gap 15 BUN 38 H Creatinine 1.23 Estim Creat Clear Calc 51.9 Estimated GFR 46 POC Glucose 294 H 376 H* Random Glucose 458 H* Calcium 7.9 L Urine Color Urine Appearance Urine pH Ur Specific [place] Urine Protein Urine Glucose (UA) Urine Ketones Urine Blood Urine Nitrite Ur Leukocyte Esterase Urine RBC Urine WBC Ur Squamous Epith Cells Urine Bacteria Urine Yeast Urine Opiates Screen Ur Barbiturates Screen Ur Phencyclidine Scrn Ur Amphetamines Screen U Benzodiazepines Scrn Urine Cocaine Screen U Marijuana (THC) Screen Ur L.pneumophila Ag 04/29/20 04/29/20 04/28/20 05:20 05:20 20:51 WBC 14.9 H RBC 4.34 Hgb 11.5 L Hct 35.3 L MCV 81.3 MCH 26.5 L MCHC 32.6 RDW 15.3 Plt Count 198 MPV 11.3 Immature Gran % (Auto) 0.8 H Neut % (Auto) 87.2 H Lymph % (Auto) 5.0 L [place] % (Auto) 6.8 Eos % (Auto) 0.0 Baso % (Auto) 0.2 Lymph # (Auto) 0.8 L [place] # (Auto) 1.0 Eos # (Auto) 0.0 Baso # (Auto) 0.0 Abs Immat Gran (auto) 0.12 H Absolute Neuts (auto) 13.0 H Absolute Nucleated RBC 0.000 Nucleated RBC % (auto) 0.0 Sodium 132 L Potassium 4.5 Chloride 94 L Carbon Dioxide 25 Anion Gap 18 BUN 39 H Creatinine 1.24 Estim Creat Clear Calc 51.5 Estimated GFR 45 POC Glucose 406 H* Random Glucose 370 H* Calcium 8.0 L Urine Color Urine Appearance Urine pH Ur Specific [place] Urine Protein Urine Glucose (UA) Urine Ketones Urine Blood Urine Nitrite Ur Leukocyte Esterase Urine RBC Urine WBC Ur Squamous Epith Cells Urine Bacteria Urine Yeast Urine Opiates Screen Ur Barbiturates Screen Ur Phencyclidine Scrn Ur Amphetamines Screen U Benzodiazepines Scrn Urine Cocaine Screen U Marijuana (THC) Screen Ur L.pneumophila Ag 04/28/20 04/28/20 04/28/20 16:41 16:06 16:06 WBC RBC Hgb Hct MCV MCH MCHC RDW Plt Count MPV Immature Gran % (Auto) Neut % (Auto) Lymph % (Auto) [place] % (Auto) Eos % (Auto) Baso % (Auto) Lymph # (Auto) [place] # (Auto) Eos # (Auto) Baso # (Auto) Abs Immat Gran (auto) Absolute Neuts (auto) Absolute Nucleated RBC Nucleated RBC % (auto) Sodium Potassium Chloride Carbon Dioxide Anion Gap BUN Creatinine Estim Creat Clear Calc Estimated GFR POC Glucose 334 H Random Glucose Calcium Urine Color YELLOW Urine Appearance CLEAR Urine pH 6.0 Ur Specific [place] 1.015 Urine Protein TRACE Urine Glucose (UA) >=1000 H Urine Ketones NEG Urine Blood 1+ H Urine Nitrite NEG Ur Leukocyte Esterase NEG Urine RBC 0-2 Urine WBC 1-4 Ur Squamous Epith Cells 1+ Urine Bacteria NONE Urine Yeast TRACE Urine Opiates Screen Ur Barbiturates Screen Ur Phencyclidine Scrn Ur Amphetamines Screen U Benzodiazepines Scrn Urine Cocaine Screen U Marijuana (THC) Screen Ur L.pneumophila Ag Pending 04/28/20 04/28/20 04/28/20 16:06 15:01 13:30 WBC RBC Hgb Hct MCV MCH MCHC RDW Plt Count MPV Immature Gran % (Auto) Neut % (Auto) Lymph % (Auto) [place] % (Auto) Eos % (Auto) Baso % (Auto) Lymph # (Auto) [place] # (Auto) Eos # (Auto) Baso # (Auto) Abs Immat Gran (auto) Absolute Neuts (auto) Absolute Nucleated RBC Nucleated RBC % (auto) Sodium Potassium Chloride Carbon Dioxide Anion Gap BUN Creatinine Estim Creat Clear Calc Estimated GFR POC Glucose 415 H* 514 H* Random Glucose Calcium Urine Color Urine Appearance Urine pH Ur Specific [place] Urine Protein Urine Glucose (UA) Urine Ketones Urine Blood Urine Nitrite Ur Leukocyte Esterase Urine RBC Urine WBC Ur Squamous Epith Cells Urine Bacteria Urine Yeast Urine Opiates Screen Not Detected Ur Barbiturates Screen Not Detected Ur Phencyclidine Scrn Not Detected Ur Amphetamines Screen Not Detected U Benzodiazepines Scrn Not Detected Urine Cocaine Screen Not Detected U Marijuana (THC) Screen Not Detected Ur L.pneumophila Ag Preliminary micro results at discharge 04/27/20 23:00 Blood Culture - Preliminary Blood - Venous 04/27/20 22:57 Blood Culture - Preliminary Blood - Venous Discharge Plan Discharge Patient Disposition: Home, Self-Care Referrals: Joe Hale, CERTIFIED LEGAL INVESTIGATOR-BC [Nurse Practitioner] - 1 Week (Tele Visit 05/10/20 7:00 AM. Joe will call you to discuss your hospital stay, if you can't keep this appointment please call and reschedule.) Discharge Medications: New glipizide 5 mg tablet 5 mg PO DAILY Qty: 30 RF: 0 levofloxacin 500 mg tablet 500 mg PO DAILY Qty: 13 RF: 0 nicotine 21 mg/24 hr patch 24 hour 1 patch transdermal DAILY Qty: 28 RF: 0 Continued bupropion HCl 300 mg tablet extended release 24 hr 300 mg PO QAM 30 Days Qty: 30 RF: 2 gabapentin 600 mg tablet 600 mg PO QID 30 Days Qty: 120 RF: 0 losartan 25 mg tablet 25 mg PO DAILY 90 Days Qty: 90 RF: 0 tizanidine 4 mg tablet 4 mg PO BID PRN (Reason: muscle spasticity) 30 Days Qty: 60 RF: 0 pantoprazole 40 mg tablet,delayed release (DR/EC) 40 mg PO BID@0630,1630 RF: 0 baclofen 20 mg tablet 20 mg PO DAILY PRN (Reason: Muscle Spasm) RF: 0 furosemide 20 mg Tablet 20 mg PO BID RF: 0 dicyclomine 10 mg Capsule 10 mg PO QID PRN (Reason: Abdominal Discomfort) RF: 0 Amitiza 24 mcg Capsule 24 mcg PO BID RF: 0 venlafaxine 225 mg Tablet Extended Release 24hr 225 mg PO DAILY RF: 0 Trulicity 0.75 mg/0.5 mL Pen Injector 0.75 mg SUBCUT QWEEK RF: 0 Stiolto Respimat 2.5-2.5 mcg/actuation Mist 2 puff INHALATION DAILY RF: 0 carisoprodol 350 mg tablet 350 mg PO DAILY PRN (Reason: Muscle Spasm) RF: 0 ipratropium-albuterol 0.5 mg-3 mg(2.5 mg base)/3 mL Solution For Nebulization 3 ml INHALATION TID RF: 0 aspirin 81 mg Tablet,Delayed Release (Dr/Ec) 81 mg PO DAILY RF: 0 cholecalciferol (vitamin D3) 50 mcg (2,000 unit) capsule 50 mcg PO DAILY RF: 0 atorvastatin 80 mg tablet 80 mg PO DAILY RF: 0 cetirizine 10 mg tablet 10 mg PO DAILY RF: 0 albuterol sulfate 90 mcg/actuation HFA aerosol inhaler 2 puff inhalation Q6H PRN (Reason: Shortness Of Breath) RF: 0 Discontinued ibuprofen 800 mg Tablet 800 mg PO BID PRN (Reason: Pain (Scale Score 1-3)) RF: 0 metformin 500 mg Tablet Extended Release 24 Hr 500 mg PO QPM RF: 0 Discharge Orders: Discharge Order (Routine); Ordered 04/30/20 Ordered By: Nasrin Burton Diet: advance to your usual diet and diabetic diet Activity on Discharge: As tolerated Visit Report Forms: Patient Portal Discharge page Care Plan Goals: Patient came with COPD exacerbation-treated with nebs, steroids, BiPAP in ICU and subsequently patient was sent to the floor where she is doing better COPD sims and of steroids the because she is improved and also because of hyperglycemia. Patient says she has nebs and stiolto at home, does not qualify for an home oxygen. Patient was told to avoid smoking and nicotine patches supply given. Diabetes uncontrolled with fluctuating blood sugars: As per the patient she is not taking metformin at home she does not have it, patient was started on small dose of glipizide and she will continue her Trulicity at home. Patient was advised to follow-up with endocrinology outpatient as per PCP -further management as per PCP. Patient also has bacteria E coli in the blood: Seen by infection doctor and patient is going home with p.o. antibiotic currently asymptomatic no fever or any new symptoms. Health Concerns: As above. Plan of Treatment: As above.
[2020-04-29 12:11] LABS: Glucose, Whole Blood 181 mg/dL (60-115)
[2020-04-29] MEDS: Sodium Phosphate,Mono-Dibasic 133 ML ENEMA PR (13:05)
[2020-04-29] MEDS: Acetaminophen 325 MG TABLET 650 MG PO ×2 (13:43→20:31)
--- NOTE | 2020-04-29 15:20 | P.PNIM_ITS ---
Subjective Subjective Date of Service: 04/29/20 Interval History: copd exacerbation, fevers, bacteremia Review of Systems Shortness of breath improving but still has fever. Physical Exam Vital Signs: Vital Signs: Vital Signs Temp Pulse Resp BP Pulse Ox 04/29/20 14:09 99.2 F 112 H 20 04/29/20 11:28 102.3 F H 121 H 24 H 160/65 H 91 L 04/29/20 08:00 98 F 98 18 155/79 H 93 04/29/20 03:52 96.4 F L 78 18 131/95 H 98 04/28/20 23:56 97.5 F 86 18 111/57 L 94 04/28/20 22:00 17 04/28/20 19:27 97.7 F 92 18 117/55 L 90 L 04/28/20 15:49 98 F 92 16 128/60 94 Body Mass Index 39.6 Physical exam: Cvs: rrr, [id number] , no murmur res: breath sounds diminshed at bases , has few scattered wheezes abd: no rebound or guarding ,nt, bs present. ext pulses present , no cyanosis neuro: axo3 , nonfocal. Objective Data Current Medications Generic Name Dose Route Start Last Admin Trade Name Freq PRN Reason Stop Dose Admin Acetaminophen 650 mg 04/29/20 13:08 04/29/20 13:43 Acetaminophen 325 Mg Tablet PO 650 mg Q6H PRN Administration Fever Albuterol/Ipratropium 3 ml 04/27/20 20:00 04/29/20 11:09 Albuterol/Iprat 2.5/0.5mg 3 Ml Ampul.Neb INHALE 3 ml RQ4H WHILE AWAKE [place] Administration Aspirin 81 mg 04/30/20 09:00 Aspirin Enteric Coated 81 Mg Tablet.Dr PO DAILY [place] Atorvastatin Calcium 80 mg 04/30/20 21:00 Atorvastatin Calcium 80 Mg Tablet PO BEDTIME [place] Baclofen 20 mg 04/29/20 14:20 Baclofen 20 Mg Tablet PO DAILY PRN Muscle Spasm Bupropion HCl 300 mg 04/29/20 15:15 Bupropion Hcl Xl 300 Mg Tab.Er.24h PO DAILY [place] Carisoprodol 350 mg 04/29/20 14:20 Carisoprodol 350 Mg Tablet PO DAILY PRN Muscle Spasm Dicyclomine HCl 10 mg 04/29/20 14:20 Dicyclomine Hcl 10 Mg Capsule PO QID PRN Abdominal Discomfort Enoxaparin Sodium 40 mg 04/27/20 18:00 04/29/20 05:54 Enoxaparin Sodium 40 Mg/0.4 Ml Syringe SUBCUT 40 mg Q12H COUNT INCLUDES THE [facility] Administration Furosemide 20 mg 04/29/20 21:00 Furosemide 20 Mg Tablet PO BID COUNT INCLUDES THE [facility] Protocol Gabapentin 600 mg 04/29/20 17:00 Gabapentin 600 Mg Tablet PO QID COUNT INCLUDES THE [facility] Glipizide 10 mg 04/29/20 09:30 04/29/20 09:56 Glipizide 10 Mg Tablet PO 10 mg BIDWM COUNT INCLUDES THE [facility] Administration Levofloxacin 750 mg in 150 mls @ 100 mls/hr 04/28/20 17:30 04/28/20 20:47 Levaquin IV Infused Q24H COUNT INCLUDES THE [facility] Infusion Insulin Glargine 10 unit 04/28/20 09:30 04/29/20 08:42 Insulin Glargine,Hum.Rec.Anlog 100 Unit/Ml 10 Ml Vial SUBCUT 10 unit DAILY COUNT INCLUDES THE [facility] Administration Insulin Human Lispro 0 unit 04/28/20 08:14 04/29/20 13:06 Insulin Lispro 100 Unit/Ml 3 Ml Vial SUBCUT Not Given QIDACHS COUNT INCLUDES THE [facility] Protocol Levalbuterol HCl 1.25 mg 04/27/20 16:19 Levalbuterol Hcl 1.25 Mg/3 Ml Vial.Neb INHALE RQ4H WHILE AWAKE PRN Dyspnea Loratadine 10 mg 04/30/20 09:00 Loratadine 10 Mg Tablet PO DAILY COUNT INCLUDES THE [facility] Magnesium Hydroxide 30 ml 04/27/20 16:12 04/28/20 19:22 Milk Of Magnesia 30 Ml Oral.Susp PO 30 ml DAILY PRN Administration Constipation Metformin HCl 500 mg 04/29/20 17:00 Metformin Hcl Er 500 Mg Tab.Er.24h PO DAILY@1700 COUNT INCLUDES THE [facility] Non-Formulary Medication 24 mcg 04/29/20 14:30 Lubiprostone [Amitiza] PO BID COUNT INCLUDES THE [facility] Omeprazole 20 mg 04/29/20 16:30 Omeprazole 20 Mg Capsule.Dr PO BID@0630,1630 COUNT INCLUDES THE [facility] Pharmacy Consult 1 each 04/27/20 16:12 Consult Rx Anticoag Dosing MISCELLANE DAILY PRN Consult order Pharmacy Consult 1 each 04/27/20 20:34 Consult Rx Perform Med Rec MISCELLANE ONCE PRN Consult order Sodium Biphosphate/Sodium Phosphate 133 ml 04/29/20 10:30 04/29/20 13:05 Sodium Phosphate,[place]-Dibasic 133 Ml Enema [place] 133 ml ONCE PRN Administration Constipation Sodium Chloride 3 ml 04/28/20 00:00 04/29/20 08:45 0.9 % Sodium Chloride Flush 3 Ml Syringe IVFLUSH 3 ml QSHIFT [place] Administration Tizanidine HCl 4 mg 04/28/20 21:40 04/29/20 09:53 Tizanidine Hcl 4 Mg Tablet PO 4 mg BID PRN Administration muscle spasticity Venlafaxine HCl 150 mg 04/30/20 09:00 Venlafaxine Hcl Er 150 Mg Cap.Er.24h PO DAILY [place] Venlafaxine HCl 75 mg 04/30/20 09:00 Venlafaxine Hcl Er 75 Mg Cap.Er.24h PO DAILY COUNT INCLUDES THE [facility] Vitamin D 50 mcg 04/30/20 09:00 Cholecalciferol (Vitamin D3) 25 Mcg Tablet PO DAILY COUNT INCLUDES THE [facility] Labs CBC & Chem 7: 04/29/20 05:20 04/29/20 07:39 Microbiology Microbiology Results: Microbiology 04/27/20 23:00 Blood - Venous Blood Culture - Preliminary Gram negative babita 04/27/20 22:57 Blood - Venous Blood Culture - Preliminary Gram negative babita 04/27/20 09:36 Blood - Venous Blood Culture - Final Escherichia coli 04/27/20 09:20 Blood - Venous Blood Culture - Final Escherichia coli Assessment and Plan (1) COPD (chronic obstructive pulmonary disease): Status: Acute (2) E coli bacteremia: Problem details: Patient possible urine versus abdominal source or obstruction Status: Acute Assessment and Plan: 1.Acute on chronic hypoxic and hypercapnic respiratory failure secondary to exacerbation of underlying COPD. Continue with nebs , oxygen, Patient requires nocturnal CPAP support for underlying HENRY. e coli bacteremia : Seen by ID: Recommended to CT abdomen, continue Levaquin IV 2. DM : Uncontrolled, patient takes metformin at home as well as to with coverage. Will add back her metformin as well as will add glipizide, fingerstick with coverage Hemoglobin A1c is 13.4 3.GERD (gastroesophageal reflux disease): continue ppi. 4.HTN (hypertension):added back home losartan 5. constipation: given enema -not bm yet added coace and miralex.
[2020-04-29] MEDS: buPROPion HCl XL 300 MG TAB.ER.24H PO (15:34)
--- NOTE | 2020-04-29 15:34 | MHC.CM.PN ---
Patient's discharge has been placed on hold for a fever today of 102.3 and positive blood cultures. Patient is on IV Levaquin. Discharge plan continues to be home with resumption of [facility] services. Jesse Wilkinson will provide transport. CM will continue to follow for discharge needs.
[2020-04-29 16:37] LABS: Glucose, Whole Blood 87 mg/dL (60-115)
--- NOTE | 2020-04-29 16:52 | W.PM.IDCN ---
History of Present Illness Data of Consult Service Date: 04/29/20 Requesting physician: Nasrin Burton Primary Care Provider: Unknown Physician HPI Reason for consult: abdominal pain She has abdominal discomfort and chills for 2 days She has no nausea or diarrhea PMFSH Past Medical History Medical History Acute and chronic respiratory failure, unspecified whether with hypoxia or hypercapnia Acute and chronic respiratory failure, unspecified whether with hypoxia or hypercapnia COPD (chronic obstructive pulmonary disease) COPD exacerbation Diabetes mellitus Diabetes mellitus GERD (gastroesophageal reflux disease) Hernia HTN (hypertension) Obesity (BMI 30-39.9) Obstructive sleep apnea HENRY (obstructive sleep apnea) Respiratory failure Family History Family history: reviewed and not pertinent Social History Social History Household Members: None Housing: House Alcohol intake: current Alcohol intake frequency: a few times a month Smoking Status: Current every day smoker Tobacco Type: Cigarette Packs Per Day: 1.5 Cigarettes Per Day: 30.0 Years Smoked: 30 Second Hand Smoke Exposure: No Substance Use Type: Crack/Cocaine service: No Current occupational status: unemployed Meds Allergies Allergy/AdvReac Type Severity Reaction Status Date / Time doxycycline Allergy Severe Swelling Verified 04/12/20 16:59 varenicline [From CHANTIX] Allergy Severe ANAPHYLAXIS Verified 04/12/20 16:59 azithromycin Allergy Mild Rash Verified 04/12/20 16:59 cetirizine Allergy Mild Rash Verified 04/12/20 16:59 famotidine Allergy Mild Rash Verified 04/12/20 16:59 linaclotide [Linzess] Allergy Mild Rash Verified 04/12/20 16:59 barium sulfate Allergy Unknown angioedema Verified 01/27/20 00:00 Home Medications Medication Instructions Recorded Confirmed Type albuterol sulfate 90 mcg/actuation 2 puff INHALATION Q6H PRN g 04/08/20 04/27/20 History aerosol inhaler atorvastatin 80 mg tablet 80 mg PO DAILY 04/08/20 04/27/20 History cetirizine 10 mg tablet 10 mg PO DAILY 04/08/20 04/27/20 History cholecalciferol (vitamin D3) 50 50 mcg PO DAILY 04/08/20 04/27/20 History mcg (2,000 unit) capsule Amitiza 24 mcg PO BID 04/12/20 04/27/20 History Stiolto Respimat 2 puff INHALATION DAILY 04/12/20 04/27/20 History Trulicity 0.75 mg SUBCUT QWEEK 04/12/20 04/27/20 History aspirin 81 mg PO DAILY 04/12/20 04/27/20 History carisoprodol 350 mg PO DAILY PRN 04/12/20 04/27/20 History dicyclomine 10 mg PO QID PRN 04/12/20 04/27/20 History furosemide 20 mg PO BID 04/12/20 04/27/20 History ipratropium-albuterol 3 ml INHALATION TID 04/12/20 04/27/20 History venlafaxine 225 mg PO DAILY 04/12/20 04/27/20 History baclofen 20 mg PO DAILY PRN 04/27/20 04/27/20 History pantoprazole 40 mg PO BID@0630,1630 04/27/20 04/27/20 History Physical Exam Vital Signs: Vital Signs: Vital Signs Temp Pulse Resp BP Pulse Ox 04/29/20 15:46 97.0 F 20 106/61 93 04/29/20 14:09 99.2 F 112 H 20 04/29/20 11:28 102.3 F H 121 H 24 H 160/65 H 91 L 04/29/20 08:00 98 F 98 18 155/79 H 93 04/29/20 03:52 96.4 F L 78 18 131/95 H 98 04/28/20 23:56 97.5 F 86 18 111/57 L 94 04/28/20 22:00 17 04/28/20 19:27 97.7 F 92 18 117/55 L 90 L Body Mass Index 39.6 Const: General: cooperative HENMT: Head: Yes normal to inspection Face and sinus: Yes normal facial exam Mouth: oropharynx normal Resp: Effort & Inspection: normal respiratory effort Cardio: Rate: regular rate Rhythm: regular rhythm GI: Palpation (GI): Soft to palpation and Tenderness to palpation present (GI) (lower abdomen discomfort) Assessment and Plan (1) E coli bacteremia: Problem details: Patient possible urine versus abdominal source or obstruction Status: Acute Check CT abdomen and pelvis evaluate mass or obstruction Finish 14 d course likely with po Ceftin (2) Acute and chronic respiratory failure, unspecified whether with hypoxia or hypercapnia: Status: Acute Results Labs CBC & Chem 7: 04/29/20 05:20 04/29/20 07:39 Labs: Short CBC 04/29/20 Range/Units 05:20 WBC 14.9 H (4.8-10.8) X10*3/uL Hgb 11.5 L (12.0-16.0) g/dl Hct 35.3 L (37-47) % Plt Count 198 (160-400) X10*3/uL BMP 04/29/20 04/29/20 05:20 07:39 Sodium 132 L 129 L Potassium 4.5 4.4 Chloride 94 L 94 L Carbon Dioxide 25 24 BUN 39 H 38 H Creatinine 1.24 1.23 Calcium 8.0 L 7.9 L Urine 04/28/20 Range/Units 16:06 Urine Color YELLOW Urine Appearance CLEAR Urine pH 6.0 (5.0-8.0) Ur Specific [place] 1.015 (1.005-1.025) Urine Protein TRACE (NEG-TRACE) MG/DL Urine Glucose (UA) >=1000 H (NEG) MG/DL Microbiology Microbiology Results: Microbiology 04/27/20 23:00 Blood - Venous Blood Culture - Preliminary Gram negative babita 04/27/20 22:57 Blood - Venous Blood Culture - Preliminary Gram negative babita 04/27/20 09:36 Blood - Venous Blood Culture - Final Escherichia coli 04/27/20 09:20 Blood - Venous Blood Culture - Final Escherichia coli
[2020-04-29] MEDS: Omeprazole 20 MG CAPSULE.DR PO (17:11)
[2020-04-29] MEDS: levoFLOXacin/D5W 750 MG/150 ML PIGGYBACK 100 MG IV (17:11)
[2020-04-29 17:42] LABS: Glucose, Whole Blood 210 mg/dL (60-115)
[2020-04-29 18:25] LABS: Glucose, Whole Blood 170 mg/dL (60-115)
[2020-04-29] MEDS: Docusate Sodium 100 MG CAPSULE PO (20:31)
[2020-04-29] MEDS: polyethylene glycoL 3350 17 GM POWD.PACK PO (20:31)
[2020-04-29] MEDS: Furosemide 20 MG TABLET PO (20:31)
[2020-04-29 21:11] LABS: Glucose, Whole Blood 93 mg/dL (60-115)
[2020-04-29 22:12] LABS: Glucose, Whole Blood 110 mg/dL (60-115)
[2020-04-29 23:26] LABS: Glucose, Whole Blood 110 mg/dL (60-115)
[2020-04-30] MEDS: carisoprodoL 350 MG TABLET PO (00:57)
[2020-04-30 01:19] LABS: Glucose, Whole Blood 110 mg/dL (60-115)
[2020-04-30 02:09] LABS: Glucose, Whole Blood 120 mg/dL (60-115)
[2020-04-30 03:07] VITALS: BP 137/77; PULSE 105; RESP 18; TEMP 36.6; O2SAT 95
[2020-04-30 03:24] LABS: Glucose, Whole Blood 113 mg/dL (60-115)
[2020-04-30 04:08] LABS: Glucose, Whole Blood 143 mg/dL (60-115)
[2020-04-30 05:11] LABS: Glucose, Whole Blood 132 mg/dL (60-115)
[2020-04-30] MEDS: TiZANidine HCL 4 MG TABLET PO (05:59)
[2020-04-30] MEDS: Dicyclomine HCl 10 MG CAPSULE PO (05:59)
[2020-04-30] MEDS: Omeprazole 20 MG CAPSULE.DR PO (06:00)
[2020-04-30] MEDS: Acetaminophen 325 MG TABLET 650 MG PO (06:00)
[2020-04-30] MEDS: Enoxaparin Sodium 40 MG/0.4 ML SYRINGE SUBCUT (06:01)
[2020-04-30 06:02] LABS: Glucose, Whole Blood 134 mg/dL (60-115)
[2020-04-30] MEDS: Albuterol/Iprat 2.5/0.5MG 3 ML AMPUL.NEB INHALE ×2 (07:24→11:10)
[2020-04-30 07:36] VITALS: BP 99/58; PULSE 102; RESP 20; TEMP 36.4; O2SAT 93
[2020-04-30 07:58] LABS: Glucose, Whole Blood 145 mg/dL (60-115)
[2020-04-30] MEDS: Gabapentin 600 MG TABLET PO (09:12)
[2020-04-30] MEDS: Venlafaxine HCl ER 150 MG CAP.ER.24H PO (09:12)
[2020-04-30] MEDS: Cholecalciferol (Vitamin D3) 25 MCG TABLET 50 MCG PO (09:12)
[2020-04-30] MEDS: Furosemide 20 MG TABLET PO (09:12)
[2020-04-30 09:13] VITALS: BP 99/58; PULSE 102
[2020-04-30] MEDS: Venlafaxine HCl ER 75 MG CAP.ER.24H PO (09:13)
[2020-04-30] MEDS: Aspirin Enteric Coated 81 MG TABLET.DR PO (09:13)
[2020-04-30] MEDS: buPROPion HCl XL 300 MG TAB.ER.24H PO (09:13)
[2020-04-30] MEDS: Loratadine 10 MG TABLET PO (09:14)
[2020-04-30] MEDS: Docusate Sodium 100 MG CAPSULE PO (09:14)
[2020-04-30] MEDS: polyethylene glycoL 3350 17 GM POWD.PACK PO (09:14)
[2020-04-30] MEDS: 0.9 % Sodium Chloride Flush 3 ML SYRINGE IVFLUSH (09:15)
--- NOTE | 2020-04-30 13:16 | MHC.CM.PN ---
Pt to DC home today with resumption of [facility] and [facility]. Daughter Jaja to provide transportation
[2020-05-02 12:57] LABS: Anti Nuclear Antibody Screen NEGATIVE (NEGATIVE)
[2020-05-03 06:37] LABS: Legionella Ag Urine Not Detected (Not Detected)
== END 2020-04-30 14:35 | disposition home health service (06) | DRG 140 ==
LOC: HO.ED 18:39 → HO.ICU 20:03 → HO.IMC 04-28 05:07
PROVIDERS: Registered Nurse Community Health; Admitting Provider Internal Medicine Cardiovascular Disease; Emergency Provider Emergency Medicine; Visit Provider Internal Medicine
DX: J44.1 Chronic obstructive pulmonary disease with (acute) exacerbation (principal); J96.21 Acute and chronic respiratory failure with hypoxia; R78.81 Bacteremia; F17.210 Nicotine dependence, cigarettes, uncomplicated; K21.9 Gastro-esophageal reflux disease without esophagitis; E11.65 Type 2 diabetes mellitus with hyperglycemia; M25.561 Pain in right knee; J96.22 Acute and chronic respiratory failure with hypercapnia; K59.00 Constipation, unspecified; Z68.39 Body mass index [BMI] 39.0-39.9, adult; E66.2 Morbid (severe) obesity with alveolar hypoventilation; Z20.828 Contact with and (suspected) exposure to other viral communicable diseases; M25.562 Pain in left knee; Z71.6 Tobacco abuse counseling; Z79.82 Long term (current) use of aspirin; Z79.899 Other long term (current) drug therapy; B96.20 Unspecified Escherichia coli [E. coli] as the cause of diseases classified elsewhere
CPT/HCPCS: 36415; 71045; 71250; 74176; 80048; 80053; 80076; 80307; 81001; 82803; 82947; 83036; 83605; 83690; 83735; 83880; 84484; 85025; 85610; 85652; 86038; 86039; 87040; 87077; 87086; 87186; 87449; 87635; 93005; 94660; 96361; 96365; 99285; J1650; J1956; J2543; J2930

== ENCOUNTER → 2020-05-19 15:03 | Outpatient (BNVA) | payer OTHER, SELFPAY | PROVIDERS: PCP Nurse Practitioner Family; Referring Provider Nurse Practitioner Family; Visit Provider Internal Medicine Pulmonary Disease | DX: Z76.89 Persons encountering health services in other specified circumstances (principal) ==

== ENCOUNTER → 2020-06-29 08:52 | Outpatient (BNVA) | payer OTHER, SELFPAY | PROVIDERS: PCP Nurse Practitioner Family; Visit Provider Nurse Practitioner | DX: Z76.89 Persons encountering health services in other specified circumstances (principal) ==

== ENCOUNTER 2020-07-05 12:40 | Outpatient (REF) | payer OTHER, SELFPAY ==
--- NOTE | 2020-07-05 13:11 | XR_ITS ---
EXAMINATION: XR SHOULDER, RIGHT CLINICAL INFORMATION: Right shoulder pain. COMPARISON: Radiographs right shoulder 03/18/2019 TECHNIQUE: Right shoulder is imaged in 3 views. FINDINGS: There is no fracture, dislocation, or destructive process. The acromioclavicular alignment is normal. Again, there is bulky calcific tendinosis adjacent to the greater tuberosity and in region of infraspinatus. There is also small focus of calcific tendinosis in region of long head biceps at proximal medial humeral neck. There is no destructive process. The glenohumeral joint is unremarkable. There are old healed fractures right rib. XR/XR shoulder RT min 2V IMPRESSION: 1. Bulky calcific tendinosis adjacent to greater tuberosity and in region of infraspinatus and long head biceps. 2. Acromioclavicular alignment normal. Glenohumeral joint unremarkable.
== END 2020-07-05 12:41 | disposition home or self-care (01) ==
LOC: HO.HOSX 12:40
PROVIDERS: Visit Provider Physician Assistant
DX: M25.511 Pain in right shoulder (principal); M75.31 Calcific tendinitis of right shoulder
CPT/HCPCS: 20610; 73030; 99212; J1020

== ENCOUNTER → 2020-07-15 13:16 | Outpatient (BNVA) | payer OTHER, SELFPAY | PROVIDERS: Visit Provider Internal Medicine Pulmonary Disease | DX: Z76.89 Persons encountering health services in other specified circumstances (principal) ==

== ENCOUNTER → 2020-07-25 14:04 | Outpatient (BNVA) | payer OTHER, SELFPAY | PROVIDERS: PCP Nurse Practitioner Family; Visit Provider Internal Medicine ==

== ENCOUNTER → 2020-08-03 12:54 | Outpatient (BNVA) | payer OTHER, SELFPAY | PROVIDERS: PCP Nurse Practitioner Family; Visit Provider Physician Assistant | DX: Z13.89 Encounter for screening for other disorder (principal) | CPT/HCPCS: 99212 ==

== ENCOUNTER 2020-08-15 08:39 | Outpatient (REF) | payer OTHER, SELFPAY ==
--- NOTE | ~2020-08-15 | MR_ITS ---
EXAMINATION: MR SHOULDER WITHOUT CONTRAST, RIGHT CLINICAL INFORMATION: Shoulder pain, decreased range of motion, weakness. COMPARISON: X-ray 07/05/2020 TECHNIQUE: MRI of the shoulder without contrast was performed on a high-field scanner. FINDINGS: Motion artifact limiting evaluation. ROTATOR CUFF: Mild supraspinatus tendinosis. Possible small 3 mm interstitial tear anteriorly. Infraspinatus tendinosis. There is low T1 and T2 signal foci in the region of the distal infraspinatus tendon, indicative of calcific tendinitis/bursitis, cluster extending over a distance of approximately 1.2 cm medial-lateral, 1.5 cm AP. There may be an additional area of calcific tendinitis anterior to this, as well. No focal infraspinatus tear. Teres minor is intact. Mild subscapularis tendinosis. No muscle atrophy or fatty infiltration. BICEPS: Biceps tendon is intact. The small focus of calcification seen on the recent x-ray is not evident on MRI. CORACOACROMIAL ARCH: The undersurface of the acromion is curved with no subacromial spur. Mild AC joint arthritis. LABRUM/CAPSULE: Motion artifact limiting evaluation. There is degeneration and possible fraying/tear of the superior labrum. Small caliber posterior labrum. Inferior capsule is intact. GLENOHUMERAL JOINT/MARROW: No fracture. No suspicious marrow signal changes. MR/MR shoulder RT wo con IMPRESSION: 1. Mild supraspinatus tendinosis. Possible small 3 mm interstitial tear anteriorly. 2. Infraspinatus tendinosis. Cluster of calcific tendinitis/bursitis, cluster extending over a distance of approximately 1.2 x 1.5 cm. There may be an additional focus of calcific tendinitis anterior to this, as well, evaluation limited by motion artifact. 3. Mild subscapularis tendinosis. 4. Biceps tendon is intact. Focus of calcification along the anterior aspect of the femoral neck, seen on the recent x-ray is not evident on MRI. 5. Superior labral degeneration plus/minus fraying/tear.
== END 2020-08-15 08:40 | disposition home or self-care (01) ==
LOC: HO.MRI 08:39
PROVIDERS: Visit Provider Physician Assistant
DX: M75.80 Other shoulder lesions, unspecified shoulder (principal)
CPT/HCPCS: 73221

== ENCOUNTER → 2020-08-24 13:30 | Outpatient (BNVA) | payer OTHER, SELFPAY | PROVIDERS: PCP Nurse Practitioner Family; Visit Provider Physician Assistant | DX: M75.80 Other shoulder lesions, unspecified shoulder (principal) | CPT/HCPCS: 99212 ==

== ENCOUNTER 2020-08-25 13:36 | Emergency (ER) | payer OTHER, SELFPAY ==
[2020-08-25 13:55] VITALS: BP 130/73; PULSE 96; RESP 16; TEMP 36.9; O2SAT 97; BMI 39.6
--- NOTE | 2020-08-25 14:06 | ED.SKABFB ---
HPI - Skin/Abscess/Foreign Bdy General Chief complaint: Skin/Abscess/Foreign Body Stated complaint: Right-sided facial pimple Time Seen by Provider: 08/25/20 14:06 Source: patient Mode of arrival: ambulatory Limitations: no limitations History of Present Illness HPI narrative: 50-year-old female presents ambulatory with extensive history as noted below including history of COPD who is a current smoker, diabetes reports she had a slight blunting on the left side just posterior to the zygomatic bone. No fever, eye / ear pain. MD complaint: abscess/boil Onset (ago): day(s) (3) Tetanus up to date: yes Location: face Severity: mild Severity scale (1-10): 5 Quality: aching Pain Consistency: intermittent Relieving factors: cold therapy Exacerbating factors: palpation Context: none Associated symptoms: denies other symptoms Treatments prior to arrival: none Related Data Home Medications Medication Instructions Recorded Confirmed Stiolto Respimat 2 puff INHALATION DAILY 04/12/20 07/25/20 ipratropium-albuterol 3 ml INHALATION TID 04/12/20 07/25/20 Previous Rx's Medication Instructions Recorded gabapentin 600 mg tablet 600 mg PO QID #120 tab 05/31/20 glipizide 5 mg tablet 5 mg PO DAILY 30 Days #30 tab 05/31/20 acetaminophen 650 mg 650 mg PO Q12H PRN 30 Days #60 tab 06/06/20 tablet,extended release bisacodyl 5 mg tablet,delayed 10 mg PO BEDTIME 2 Days #4 tab 06/29/20 release atorvastatin 80 mg tablet 80 mg PO DAILY #30 tab 07/08/20 dexlansoprazole 60 mg 60 mg PO DAILY #30 cap 07/14/20 capsule,biphase delayed release dicyclomine 10 mg capsule [id number] mg PO QID PRN #240 cap 07/14/20 furosemide 20 mg tablet 20 mg PO BID #60 tab 07/14/20 albuterol sulfate 90 mcg/actuation 1 inh INHALATION QID PRN #8.5 g 07/22/20 aerosol inhaler aspirin 81 mg tablet,delayed 81 mg PO DAILY 90 Days #90 tab 07/22/20 release bupropion HCl 300 mg 24 hr tablet, 300 mg PO QAM 30 Days #30 tab 07/22/20 extended release dulaglutide 0.75 mg/0.5 mL 0.75 mg SUBCUT QWEEK 30 Days #2 ml 07/22/20 subcutaneous pen injector albuterol sulfate 90 mcg/actuation 2 puff INHALATION Q6H PRN 30 Days 08/08/20 aerosol inhaler #8.5 g carisoprodol 350 mg tablet 350 mg PO ONCE PRN 30 Days #30 tab 08/08/20 ibuprofen 800 mg tablet 800 mg PO BID PRN #60 tab 08/08/20 baclofen 20 mg tablet 20 mg PO DAILY PRN #30 tab 08/22/20 losartan 25 mg tablet 25 mg PO DAILY #30 tab 08/22/20 cephalexin 500 mg PO Q8H 7 Days #21 cap 08/25/20 mupirocin 1 appl TOPICAL BID #15 g 08/25/20 sulfamethoxazole-trimethoprim 1 tab PO Q12H 7 Days #14 tab 08/25/20 [Bactrim DS] Allergies Allergy/AdvReac Type Severity Reaction Status Date / Time doxycycline Allergy Severe Swelling Verified 08/24/20 13:32 varenicline [From CHANTIX] Allergy Severe ANAPHYLAXIS Verified 08/24/20 13:32 azithromycin Allergy Mild Rash Verified 08/24/20 13:32 cetirizine Allergy Mild Rash Verified 08/24/20 13:32 famotidine Allergy Mild Rash Verified 08/24/20 13:32 linaclotide [Linzess] Allergy Mild Rash Verified 08/24/20 13:32 barium sulfate Allergy Unknown angioedema Verified 08/24/20 13:32 Review of Systems Review of Systems: Constitutional: No Weight loss, No Fever, No Chills, No Night Sweats, No Fatigue, No Malaise ENT/Mouth: No Hearing loss, No Ear Pain, No Nasal Congestion, No Sinus Pain, No Hoarseness, No sore throat, No Rhinorrhea, No Swallowing Difficulty Eyes: No Eye Pain, No Swelling, No Redness, No Foreign Body, No Discharge, No Vision Changes Cardiovascular: No Chest Pain, No SOB, No Dyspnea on Exertion, No Orthopnea, No Edema, No Palpitations Respiratory: No Cough, No Sputum, No Wheezing, No Smoke Exposure, No Dyspnea Gastrointestinal: Negative Genitourinary: Negative Musculoskeletal: No joint pain, No Myalgias, No Joint Swelling Skin: No Skin Lesions, No rash, as noted per HPI Neuro: No Weakness, No Numbness, No Paresthesias, No Loss of Consciousness, No Dizziness, No Headache Psych: No Social Issues Heme/Lymph: No Bruising, No Bleeding,No Lymphadenopathy Endocrine: No Polyuria, No Polydipsia, No Temperature Intolerance PENDING SALE TO [facility] Past Medical History Medical History Acute and chronic respiratory failure, unspecified whether with hypoxia or hypercapnia Acute and chronic respiratory failure, unspecified whether with hypoxia or hypercapnia Carpal tunnel syndrome of right wrist COPD (chronic obstructive pulmonary disease) COPD exacerbation COPD exacerbation Crack cocaine use Depression Diabetes mellitus Diabetes mellitus Gastroparesis Hernia High triglycerides HTN (hypertension) Knee pain, bilateral Nausea & vomiting Obesity (BMI 30-39.9) Obstructive sleep apnea HENRY (obstructive sleep apnea) Respiratory failure Smoker Smoker Surgical History History of esophagogastroduodenoscopy (EGD) History of hernia repair Family History Family History Father Heart disease HENRY (obstructive sleep apnea) Family history of breast cancer Mother Asthma Emphysema, unspecified Bronchitis Smoker Alcoholism Bone marrow disease Maternal Grandmother Diabetes Social History Social History Household Members: None Housing: House Alcohol intake: current Alcohol intake frequency: a few times a month Smoking Status: Current every day smoker Tobacco Type: Cigarette Packs Per Day: 1.0 Cigarettes Per Day: 20.0 Years Smoked: 30 Smoked in Last 30 Days: Yes Second Hand Smoke Exposure: No Use of substances other than those prescribed or required for medical reasons: Yes Substance Use Type: Crack/Cocaine Substance Use Frequency: Occasionally Last Used Substance: Weeks (ago) Advance Directives: Yes Advance Directives on File: Yes Advance Directives Date on File: 04/15/20 service: No Current occupational status: unemployed 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 2 cm slightly raised area with scab in the center. There is slight erythema to the wound margins. It is slightly raised. The scab was de roofed and there is no expressible drainage. She has no erythema around the ear or the eye including the infraorbital region. Ears: hearing grossly normal bilaterally Eyes: General: appearance normal, both eyes and all related structures Visual Yi: normal visual yi by confrontation Neck: Neck: Yes normal visual inspection, No positive Brudzinski's sign, No positive Kernig's sign and No tender Thyroid: Thyroid normal Chest: Chest palpation & inspection: normal inspection of the chest Resp: Effort & Inspection: normal respiratory effort Skin: General skin exam: no rashes or lesions noted Neuro: General: patient oriented x3 Extrem: General: Yes normal to inspection Course Course Course Narrative: States her sugar this morning was 139 AP consistent with folliculitis versus MRSA infection this is right along the hairline or she got a recent haircut question this being the source. At this point no need for labs or imaging as this appears relatively localized. Will start her on oral antibiotics and advised to return in 2-3 days for recheck. She feels comfortable plan. Stable for discharge. Discharge Plan Discharge Clinical Impression: Abscess of skin or subcutaneous tissue Patient Disposition: Home, Self-Care Instructions: Cellulitis (ED) Additional Instructions: Warm compresses There is no drainable collection at this time start the oral antibiotics as prescribed Return in 2 days for recheck Return sooner if any concerns or worsening symptoms Thank you Prescriptions: New mupirocin 2 % ointment 1 appl topical BID Qty: 15 RF: 0 cephalexin 500 mg capsule 500 mg PO Q8H 7 Days Qty: 21 RF: 0 sulfamethoxazole-trimethoprim [Bactrim DS] 800-160 mg tablet 1 tab PO Q12H 7 Days Qty: 14 RF: 0 No Action gabapentin 600 mg tablet 600 mg PO QID Qty: 120 RF: 2 glipizide 5 mg tablet 5 mg PO DAILY 30 Days Qty: 30 RF: 4 acetaminophen [Mapap Arthritis Pain] 650 mg tablet extended release 650 mg PO Q12H PRN (Reason: pain) 30 Days Qty: 60 RF: 2 atorvastatin 80 mg tablet 80 mg PO DAILY Qty: 30 RF: 3 dicyclomine 10 mg capsule [id number] mg PO QID PRN (Reason: for cramps) Qty: 240 RF: 3 dexlansoprazole [Dexilant] 60 mg capsule,biphase delayed releas 60 mg PO DAILY Qty: 30 RF: 3 furosemide 20 mg tablet 20 mg PO BID Qty: 60 RF: 3 Trulicity 0.75 mg/0.5 mL pen injector 0.75 mg subcut QWEEK 30 Days Qty: 2 RF: 2 bupropion HCl 300 mg tablet extended release 24 hr 300 mg PO QAM 30 Days Qty: 30 RF: 2 albuterol sulfate [Ventolin HFA] 90 mcg/actuation HFA aerosol inhaler 1 inh inhalation QID PRN (Reason: shortness of breath or wheezing) Qty: 8.5 RF: 3 aspirin 81 mg tablet,delayed release (DR/EC) 81 mg PO DAILY 90 Days Qty: 90 RF: 0 carisoprodol 350 mg tablet 350 mg PO ONCE PRN (Reason: muscle pain) 30 Days Qty: 30 RF: 1 albuterol sulfate [ProAir HFA] 90 mcg/actuation HFA aerosol inhaler 2 puff inhalation Q6H PRN (Reason: shortness of breath or wheezing) 30 Days Qty: 8.5 RF: 4 ibuprofen 800 mg tablet 800 mg PO BID PRN (Reason: for pain) Qty: 60 RF: 0 baclofen 20 mg tablet 20 mg PO DAILY PRN (Reason: for muscle spasm) Qty: 30 RF: 2 losartan 25 mg tablet 25 mg PO DAILY Qty: 30 RF: 3 Stiolto Respimat 2.5-2.5 mcg/actuation Mist 2 puff INHALATION DAILY RF: 0 ipratropium-albuterol 0.5 mg-3 mg(2.5 mg base)/3 mL Solution For Nebulization 3 ml INHALATION TID RF: 0 bisacodyl [Dulcolax (bisacodyl)] 5 mg tablet,delayed release (DR/EC) 10 mg PO BEDTIME 2 Days Qty: 4 RF: 0 Referrals: Joe Hale FNP-BC [Primary Care Provider] - 3 days Nikolai Taylro NP [Emergency Midlevel Provider] - 2 days (For recheck as needed) Interventions: ED Discharge Assessment Last Done: 08/25/20 14:23 Discharge Date/Time: 08/25/20 14:24
[2020-08-25] MEDS: Lidocaine 4 % Cream KIT 1 APPL TOPICAL (14:15)
[2020-08-25 14:20] VITALS: BP 130/73; PULSE 96; RESP 16; TEMP 36.9; O2SAT 97
== END 2020-08-25 14:24 | disposition home or self-care (01) ==
PROVIDERS: Emergency Provider Emergency Medicine; PCP Nurse Practitioner Family
DX: L02.01 Cutaneous abscess of face (principal); E11.9 Type 2 diabetes mellitus without complications; I10 Essential (primary) hypertension; J44.9 Chronic obstructive pulmonary disease, unspecified; F14.90 Cocaine use, unspecified, uncomplicated; F17.210 Nicotine dependence, cigarettes, uncomplicated
CPT/HCPCS: 99283; 99284

== ENCOUNTER → 2020-09-01 15:46 | Outpatient (BNVA) | payer OTHER, SELFPAY | PROVIDERS: PCP Nurse Practitioner Family; Visit Provider Internal Medicine Pulmonary Disease | DX: Z01.811 Encounter for preprocedural respiratory examination (principal); J44.9 Chronic obstructive pulmonary disease, unspecified; G47.33 Obstructive sleep apnea (adult) (pediatric) | CPT/HCPCS: 99212 ==

== ENCOUNTER → 2020-09-12 12:55 | Outpatient (BNVA) | payer OTHER, SELFPAY | PROVIDERS: PCP Nurse Practitioner Family; Visit Provider Orthopaedic Surgery | DX: E11.9 Type 2 diabetes mellitus without complications (principal); M75.31 Calcific tendinitis of right shoulder; M75.80 Other shoulder lesions, unspecified shoulder | CPT/HCPCS: 99212 ==

== ENCOUNTER → 2020-09-13 07:34 | Day surgery (SDC) | payer OTHER, SELFPAY ==
[2020-09-06 15:05] VITALS: BMI 39.6
--- NOTE | 2020-09-12 08:36 | P.CONAN_ITS ---
HPI - Anesthesia Eval Consult details Narrative: 50yo F for Right Shoulder Arthroscopy with poss rotator cuff repair h/o crack/cocaine - ? last used, tox screen for DOS Per pulmo clearance: From pulmonary perspective patient is at low risk for pulmonary perioperative complications for the proposed right shoulder surgery either under general anesthesia, or monitored anesthesia care. No wheezing noted, no perioperative glucocorticoids indicated. Consider perioperative bronchodilator use. If intubation is required, consider extubation to BiPAP secondary to underlying obstructive sleep apnea. Pt cx'd DOS 09/13/20 d/t positive tox screen PMFSH Active Problems Active Problems: All Active Problems (Updated 09/07/20 @ 12:04 by Victorina Rosenthal, SANDRA) Diabetes mellitus (Acute) COPD (chronic obstructive pulmonary disease) (Acute) Respiratory failure with hypercapnia (Acute) E coli bacteremia (Acute) Bustos's esophagus (Acute) Chronic idiopathic constipation (Acute) Abdominal cramping (Acute) GERD (gastroesophageal reflux disease) (Acute) Osteoarthritis (Acute) Rotator cuff tendonitis (Acute) Neck pain (Acute) HENRY (obstructive sleep apnea) (Acute) Encounter for preoperative pulmonary examination (Acute) COPD exacerbation (Acute) Smoker (Acute) Acute and chronic respiratory failure, unspecified whether with hypoxia or hypercapnia (Acute) Past Medical History Medical History Acute and chronic respiratory failure, unspecified whether with hypoxia or hypercapnia Acute and chronic respiratory failure, unspecified whether with hypoxia or hypercapnia Asthma Carpal tunnel syndrome of right wrist COPD (chronic obstructive pulmonary disease) COPD exacerbation Crack cocaine use Depression Diabetes mellitus Gastroparesis Hernia High triglycerides HTN (hypertension) Knee pain, bilateral Nausea & vomiting Obesity (BMI 30-39.9) Obstructive sleep apnea HENRY (obstructive sleep apnea) Respiratory failure Smoker Family History Family History Father Heart disease HENRY (obstructive sleep apnea) Family history of breast cancer Mother Asthma Emphysema, unspecified Bronchitis Smoker Alcoholism Bone marrow disease Maternal Grandmother Diabetes Surgical History Surgical History History of esophagogastroduodenoscopy (EGD) History of open reduction and internal fixation (ORIF) procedure History of pubovaginal sling History of umbilical hernia repair Hx of section Hx of cholecystectomy Social History Social History (Reviewed 09/12/20 @ 13:04 by Jane Valadez Chauncey Household Members: None Housing: House Are you a primary laboratory animal caretaker to a significant other at home: No Do you presently have visiting nurse or other home services: Yes (Daughter - [employer]UP[employer] PROGRAMMER) Alcohol intake: current Alcohol intake frequency: former alcohol drinker Smoking Status: Current every day smoker Tobacco Type: Cigarette Packs Per Day: 0.5 Cigarettes Per Day: 10.0 Years Smoked: 35 Smoked in Last 30 Days: Yes Patient Interested in Nicotine Replacement: No Patient Given Instructions on How to Stop Smoking: Yes Date Education Initiated: 09/06/20 Second Hand Smoke Exposure: No Use of substances other than those prescribed or required for medical reasons: Yes Substance Use Type: Crack/Cocaine Substance Use Type Other:: States last used > 1 month ago and has no interest anymore Substance Use Frequency: Chronic Longstanding Have you been hit, kicked, punched, or otherwise hurt by someone within the past year? 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 Meds Allergies Allergy/AdvReac Type Severity Reaction Status Date / Time doxycycline Allergy Severe Swelling Verified 09/06/20 14:10 [email or web address] [From CHANTIX] Allergy Severe ANAPHYLAXIS Verified 09/06/20 14:10 azithromycin Allergy Mild Rash Verified 09/06/20 14:10 cetirizine Allergy Mild Rash Verified 09/06/20 14:10 famotidine Allergy Mild Rash Verified 09/06/20 14:10 linaclotide [Linzess] Allergy Mild Rash Verified 09/06/20 14:10 barium sulfate Allergy Unknown angioedema Verified 09/06/20 14:10 Home Medications Medication Instructions Recorded Confirmed Last Taken Type Stiolto Respimat 2 puff INHALATION DAILY 04/12/20 09/06/20 Unknown History acetaminophen [Mapap Arthritis 1 tab PO Q12H PRN 09/06/20 09/06/20 Unknown History Pain] cholecalciferol (vitamin D3) 1 tab PO DAILY 09/06/20 09/06/20 Unknown History [Vitamin D3] lubiprostone [Amitiza] 1 cap PO BID 0309/06/20 09/13/20 History tizanidine 1 tab PO BID PRN 09/06/20 09/06/20 Unknown History Exam Exam Date and Time: September 12, 2020 0836 Height,Weight and Vital Signs: Height 4 ft 11 in Weight 88.904 kg Narrative Narrative: EKG 03/2020 Vent. Rate : 102 BPM Atrial Rate : 102 BPM P-R Int : 118 ms QRS Dur : 086 ms QT Int : 314 ms P-R-T Axes : 076 073 064 degrees QTc Int : 409 ms Sinus tachycardia Intra-ventricular conduction delay Poor data quality Possible Left atrial enlargement Low voltage QRS Borderline ECG Compared to [facility] EKG of 12-Apr-2020 at 09:45:02 Heart rate has increased Assessment and Plan Assessment Anesthesia Assessment: Chart Reviewed
--- NOTE | 2020-09-13 | ECG_ITS ---
Test Reason : IRREG HEARTRHYTHM Blood Pressure : / mmHG Vent. Rate : 087 BPM Atrial Rate : 087 BPM P-R Int : 112 ms QRS Dur : 090 ms QT Int : 366 ms P-R-T Axes : 036 092 069 degrees QTc Int : 440 ms Normal sinus rhythm Rightward axis Inferior infarct , age undetermined Abnormal ECG When compared with ECG of 27-APR-2020 08:37, No significant change was found Referred By: Vania Angeles Electronically Signed By:PAUL VARGAS MD
[2020-09-13 08:18] VITALS: BP 124/60; PULSE 96; RESP 22; TEMP 36.2; O2SAT 90
[2020-09-13 08:20] LABS: Glucose, Whole Blood 173 mg/dL (60-115)
[2020-09-13 08:28] LABS: Hematocrit 39.9 % (37-47); Hemoglobin 12.6 g/dl (12.0-16.0); Mean Corpuscular HGB Conc 31.6 g/dl (31.0-35.0); Mean Corpuscular Hemoglobin 25.5 pg (27.0-33.0); Mean Corpuscular Volume 80.8 fL (80-98); Platelet Count 412 X10*3/uL (160-400); Red Blood Count 4.94 X10*6/uL (4.20-5.50); Red Cell Distribution Width 16.3 % (11.0-16.0); White Blood Count 13.5 X10*3/uL (4.8-10.8)
[2020-09-13] MEDS: Lactated Ringers 1,000 ML 100 ML IVCONT (08:31)
[2020-09-13 08:40] LABS: Amphetamine Screen Urine Not Detected (Not Detect); Barbiturates, Urine Not Detected (Not Detect); Benzodiazepines Screen Urine Not Detected (Not Detect); Cannabinoid Screen Urine Not Detected (Not Detect); Cocaine Screen Urine POSITIVE (Not Detect); Opiate Screen Urine Not Detected (Not Detect); Phencyclidine Screen Urine Not Detected (Not Detect)
[2020-09-13 08:50] LABS: Anion Gap 13 (12-20); Blood Urea Nitrogen 18 mg/dL (9-16); Calcium 9.1 mg/dL (8.4-10.2); Carbon Dioxide 27 mmol/L (22-29); Chloride 100 mmol/L (96-108); Creatinine Clr Calc Pharmacy 52.3; Estimated Glomerular Filt Rate 46; Glucose Fasting 167 mg/dL (60-99); Potassium 4.2 mmol/L (3.3-5.1); Sodium 136 mmol/L (135-145)
== END | disposition home or self-care (01) ==
PROVIDERS: Nurse Practitioner; PCP Nurse Practitioner Family; Visit Provider Orthopaedic Surgery
DX: M75.80 Other shoulder lesions, unspecified shoulder (principal); Z53.9 Procedure and treatment not carried out, unspecified reason; J44.9 Chronic obstructive pulmonary disease, unspecified; G47.33 Obstructive sleep apnea (adult) (pediatric); F14.90 Cocaine use, unspecified, uncomplicated; Z79.899 Other long term (current) drug therapy
CPT/HCPCS: 36415; 80048; 80307; 82947; 85027; 93005; J0690

== ENCOUNTER → 2020-09-28 12:18 | Outpatient (BNVA) | payer OTHER, SELFPAY | PROVIDERS: PCP Nurse Practitioner Family; Visit Provider Orthopaedic Surgery | DX: G56.01 Carpal tunnel syndrome, right upper limb (principal) | CPT/HCPCS: 99202 ==

== ENCOUNTER 2020-10-04 14:54 | Emergency (ER) | payer OTHER, SELFPAY ==
--- NOTE | ~2020-10-04 | CT_ITS ---
EXAMINATION: CTA CHEST PE STUDY CLINICAL INFORMATION: Covid Pneumonia. PE? COMPARISON: No pertinent prior studies are available for comparison. TECHNIQUE: Prior to contrast administration, noncontrast localization images were obtained. After the administration of 71 mL of Omnipaque nonionic IV contrast, contiguous thin slice helical images were obtained through the thorax. Reformatted MIP images in the coronal and sagittal planes were obtained at the acquisition workstation. This CT examination was performed using dose optimization techniques as appropriate, variously including the following: *Automated exposure control *Adjustment of mA and/or kV according to patient size (this includes techniques or standardized protocols for targeted exams where dose is matched to indication/reason for exam; i.e. extremities or head) *Use of iterative reconstruction technique DLP: 358 mGy-cm. FINDINGS: The bolus timing on this study was acceptable for visualization of the pulmonary arterial tree. There are no intraluminal pulmonary arterial filling defects present to suggest pulmonary embolism. Patchy bilateral airspace disease is seen suggesting atypical or viral infectious etiology. No abnormal pulmonary nodules or masses are appreciated. No significant hilar or mediastinal adenopathy. There is no evidence of pleural effusion or pneumothorax. The heart is normal in size. No evidence of ventricular septal bowing or right heart strain. Great vessels are normal. Otherwise the mediastinum is unremarkable. There is no pericardial effusion or pericardial thickening. Limited evaluation of the upper abdominal viscera demonstrates gallbladder to be surgically absent. Midline abdominal wall hernia mesh noted. CT/CT angio chest PE protocol IMPRESSION: No evidence for pulmonary emboli. Patchy bilateral airspace disease is seen suggesting atypical or viral infectious etiology VTE: Negative
--- NOTE | ~2020-10-04 | XR_ITS ---
EXAMINATION: XR CHEST CLINICAL INFORMATION: Chest pain COMPARISON: 04/27/2020 TECHNIQUE: Frontal view of the chest was obtained. FINDINGS: The lungs are well expanded. No dense consolidation, edema, or effusion. Diffuse bronchial wall thickening. No pneumothorax. The cardiomediastinal silhouette is unchanged. XR/XR chest 1V IMPRESSION: No consolidation. Bronchial wall thickening can be seen with a small airways process such as asthma or atypical/viral infection.
--- NOTE | 2020-10-04 15:12 | ECG_ITS ---
Test Reason : DIFFICUTY BREATHING Blood Pressure : / mmHG Vent. Rate : 082 BPM Atrial Rate : 082 BPM P-R Int : 138 ms QRS Dur : 080 ms QT Int : 372 ms P-R-T Axes : 053 049 066 degrees QTc Int : 434 ms Normal sinus rhythm with sinus arrhythmia Low voltage QRS Borderline ECG When compared with ECG of 13-SEP-2020 07:33, No significant change was found Referred By: Yajaira Pritchett Electronically Signed By:PAUL VARGAS MD
[2020-10-04 15:20] VITALS: BP 130/68; PULSE 84; RESP 17; TEMP 37.4; O2SAT 94; O2SAT 99; BMI 38.3
--- NOTE | 2020-10-04 15:28 | ED.SOB ---
HPI - SOB/Dyspnea General Chief Complaint: Dyspnea Stated Complaint: COUGH,+ COVID EXPOSURE,? COVID Time Seen by Provider: 10/04/20 14:57 Source: patient Mode of arrival: ambulatory Limitations: no limitations History of Present Illness HPI Narrative: 50-year-old female with a past medical history of COPD, diabetes, carpal tunnel syndrome, chronic constipation, GERD, osteoarthritis, HENRY here with complaints of cough, chills, shortness of breath, wheezing x 5 days. No fevers. Patient tells me she lives with 2 family members who were COVID positive. She has not been tested. She is using her nebulizer at home with continued symptoms. No chest pain, leg swelling or pain. Related Data Home Medications Medication Instructions Recorded Confirmed Stiolto Respimat 2 puff INHALATION DAILY 04/12/20 10/04/20 acetaminophen [Mapap Arthritis 1 tab PO Q12H PRN 09/06/20 10/04/20 Pain] cholecalciferol (vitamin D3) 1 tab PO DAILY 09/06/20 10/04/20 [Vitamin D3] lubiprostone [Amitiza] 1 cap PO BID 09/06/20 10/04/20 Previous Rx's Medication Instructions Recorded glipizide 5 mg tablet 5 mg PO DAILY 30 Days #30 tab 05/31/20 bisacodyl 5 mg tablet,delayed 10 mg PO BEDTIME 2 Days #4 tab 06/29/20 release dexlansoprazole 60 mg 60 mg PO DAILY #30 cap 07/14/20 capsule,biphase delayed release dicyclomine 10 mg capsule [id number] mg PO QID PRN #240 cap 07/14/20 furosemide 20 mg tablet 20 mg PO BID #60 tab 07/14/20 bupropion HCl 300 mg 24 hr tablet, 300 mg PO QAM 30 Days #30 tab 07/22/20 extended release albuterol sulfate 90 mcg/actuation 2 puff INHALATION Q6H PRN 30 Days 08/08/20 aerosol inhaler #8.5 g losartan 25 mg tablet 25 mg PO DAILY #30 tab 08/22/20 mupirocin 1 appl TOPICAL BID #15 g 08/25/20 ipratropium 0.5 mg-albuterol 3 mg 3 ml INHALATION TID 30 Days #270 ml 09/01/20 (2.5 mg base)/3 mL nebulization soln alcohol swabs 1 pad TOPICAL DAILY #100 ea 09/07/20 blood sugar diagnostic #100 ea 09/07/20 lancets 28 gauge #100 ea 09/07/20 cetirizine 10 mg tablet 10 mg PO DAILY #30 tab 09/20/20 acetaminophen 650 mg 650 mg PO Q12H PRN #60 tab 09/21/20 tablet,extended release aspirin 81 mg tablet,delayed 81 mg PO DAILY 90 Days #90 tab 09/28/20 release atorvastatin 80 mg tablet 80 mg PO DAILY #30 tab 09/28/20 carisoprodol 350 mg tablet 350 mg PO ONCE PRN 30 Days #30 tab 09/28/20 dulaglutide 0.75 mg/0.5 mL 0.75 mg SUBCUT QWEEK 30 Days #2 ml 09/28/20 subcutaneous pen injector gabapentin 600 mg tablet 600 mg PO QID #120 tab 09/28/20 ibuprofen 800 mg tablet 800 mg PO BID PRN #60 tab 09/28/20 tizanidine 4 mg tablet 4 mg PO BID PRN 30 Days #60 tab 09/28/20 prednisone 40 mg PO DAILY #8 tab 10/04/20 Allergies Allergy/AdvReac Type Severity Reaction Status Date / Time doxycycline Allergy Severe Swelling Verified 10/04/20 15:20 varenicline [From CHANTIX] Allergy Severe ANAPHYLAXIS Verified 10/04/20 15:20 azithromycin Allergy Mild Rash Verified 10/04/20 15:20 cetirizine Allergy Mild Rash Verified 10/04/20 15:20 famotidine Allergy Mild Rash Verified 10/04/20 15:20 linaclotide [Linzess] Allergy Mild Rash Verified 10/04/20 15:20 barium sulfate Allergy Unknown angioedema Verified 10/04/20 15:20 Review of Systems Review of Systems: Yes all other systems are reviewed and are negative Constitutional: Constitutional: Reports no additional constitutional complaints, Denies body ache(s), Reports chills, Denies fever(s), Denies headache(s) and Denies weakness Eyes: Eyes: Reports no additional eye complaints and Denies change in vision ENT: Reports system reviewed and no additional complaints, except as documented, Denies dizziness, Denies headache(s), Denies nasal congestion, Denies nasal discharge and Denies neck pain Cardiovascular: Cardiovascular: Reports no additional cardiovascular complaints, Denies chest pain, Denies leg edema and Reports dyspnea Respiratory: Respiratory: Reports no additional respiratory complaints, Reports cough and Reports dyspnea Gastrointestinal: Gastrointestinal: Reports no additional gastrointestinal complaints, Denies abdominal pain, Denies diarrhea, Denies nausea and Denies vomiting Genitourinary: Genitourinary: Reports no additional female genitourinary complaints and Denies urinary incontinence Musculoskeletal: Musculoskeletal: Reports no additional musculoskeletal complaints, Denies back pain, Denies arthralgias, Denies joint swelling, Denies neck pain, Denies numbness and Denies tingling Integumentary/Breasts: Skin/Breast: Reports system reviewed and no additional complaints, except as docu and Denies rash Neurologic: Reports system reviewed and no additional complaints, except as documented, Denies Abnormal speech present, Denies dizziness, Denies headache(s), Denies numbness, Denies tingling and Denies weakness PMFSH Past Medical History Attestation statement: The following information was validated with the patient. Source: old records reviewed and nursing notes reviewed Medical History Acute and chronic respiratory failure, unspecified whether with hypoxia or hypercapnia Acute and chronic respiratory failure, unspecified whether with hypoxia or hypercapnia Asthma Carpal tunnel syndrome of right wrist COPD (chronic obstructive pulmonary disease) COPD exacerbation Crack cocaine use Depression Diabetes mellitus Gastroparesis Hernia High triglycerides HTN (hypertension) Knee pain, bilateral Nausea & vomiting Obesity (BMI 30-39.9) Obstructive sleep apnea HENRY (obstructive sleep apnea) Respiratory failure Smoker Surgical History History of esophagogastroduodenoscopy (EGD) History of open reduction and internal fixation (ORIF) procedure History of pubovaginal sling History of umbilical hernia repair Hx of section Hx of cholecystectomy Family History Family History Father Heart disease HENRY (obstructive sleep apnea) Family history of breast cancer Mother Asthma Emphysema, unspecified Bronchitis Smoker Alcoholism Bone marrow disease Maternal Grandmother Diabetes Social History Social History Household Members: None Housing: House Alcohol intake: current Alcohol intake frequency: a few times a month Smoking Status: Current every day smoker Tobacco Type: Cigarette Packs Per Day: 1.5 Cigarettes Per Day: 30.0 Years Smoked: 35 Second Hand Smoke Exposure: No Substance Use Type: Crack/Cocaine Advance Directives: Yes Advance Directives on File: Yes Advance Directives Date on File: 04/15/20 service: No Current occupational status: unemployed 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 Physical Exam Vital Signs: Vital Signs: Last Vital Signs Temp 99.4 F 10/04/20 15:20 Pulse 74 10/04/20 15:56 Resp 17 10/04/20 15:20 BP 130/68 10/04/20 15:20 Pulse Ox 94 10/04/20 15:20 Body Mass Index 38.3 Const: General: cooperative, healthy appearing, comfortable and no acute distress Orientation/consciousness: patient oriented x3 Limitations: no limitations HENMT: Head: Yes normal to inspection Ears: hearing grossly normal bilaterally General nose exam: Normal external nose present Face and sinus: Yes normal facial exam Mouth: Normal oral and palatal mucosa present Throat: Yes posterior oropharynx normal Eyes: General: appearance normal, both eyes and all related structures Pupils: Equal, round and reactive pupils present Neck: Neck: Yes normal visual inspection Chest: Chest palpation & inspection: normal inspection of the chest Resp: Other: MILD [place] noted with respiratory rate 24. Expiratory wheezing throughout Effort & Inspection: normal respiratory effort Cardio: Rate: regular rate Rhythm: regular rhythm Peripheral pulses: Peripheral pulses 2+ throughout GI: Inspection: Yes normal to inspection Palpation (GI): Soft to palpation and nontender Auscultation: normal bowel sounds Back/Spine/Pelvis: Thoracic/Lumbar Spine: thoracic and lumbar spine normal to inspection Skin: General skin exam: no rashes or lesions noted Neuro: General: patient oriented x3, no focal motor deficits and normal sensation to monofilament Cranial nerves: Yes Equal, round and reactive pupils present Cognition (Neuro): normal cognition Speech: No Abnormal speech present Gait exam (Neuro): Normal gait present Motor exam (neuro): 5/5 motor strength present throughout Extrem: General: Yes normal to inspection, Yes no pedal edema and Yes no calf tenderness Course Course Course Narrative: 50-year-old female here with cough and shortness of breath and chills x5 days with COVID exposure at home. Arrival the patient has some mild tachypnea which is from chronic lung disease. She has inspiratory and expiratory wheezing throughout likely secondary to COPD. She is afebrile with a normal heart rate. Will need COVID swab, EKG, chest x-ray, labs. Will give DuoNeb, magnesium and Solu-Medrol and reassess. 1615-COVID positive. COVID labs ordered. X-ray consistent with a viral infection. Labs pending. Will need ambulation trial prior to dispo. 1700-Sign out to Miah HEATH pending above. MDM - SOB/Dyspnea MDM Narrative Medical decision making narrative: Viral syndrome, COPD exacerbation Medical Records Attestation: I reviewed the patient's medical records. Lab Data Attestation: I reviewed the patient's lab results. Result diagrams: 10/04/20 15:34 10/04/20 15:34 Labs: Lab Results 10/04/20 10/04/20 10/04/20 Range/Units 15:34 15:34 15:34 WBC 6.7 (4.8-10.8) X10*3/uL RBC 4.63 (4.20-5.50) X10*6/uL Hgb 11.6 L (12.0-16.0) g/dl Hct 37.7 (37-47) % MCV 81.4 (80-98) fL MCH 25.1 L (27.0-33.0) pg MCHC 30.8 L (31.0-35.0) g/dl RDW 16.8 H (11.0-16.0) % Plt Count 310 (160-400) X10*3/uL MPV 9.2 L (9.4-12.3) fL Immature Gran % (Auto) 0.1 (0.0-0.4) % Neut % (Auto) 57.4 (45-73) % Lymph % (Auto) 33.5 (20-40) % [place] % (Auto) 8.2 (2-11) % Eos % (Auto) 0.7 (0-4) % Baso % (Auto) 0.1 (0-2) % Lymph # (Auto) 2.2 (1.2-4.9) X10*3/uL [place] # (Auto) 0.6 (0.1-1.2) X10*3/uL Eos # (Auto) 0.1 (0.0-0.4) X10*3/uL Baso # (Auto) 0.0 (0.0-0.2) X10*3/uL Abs Immat Gran (auto) 0.01 (0.00-0.03) X10*3/uL Absolute Neuts (auto) 3.8 (2.0-8.3) X10*3/uL Absolute Nucleated RBC 0.000 (0.0-0.012) X10*3/uL Nucleated RBC % (auto) 0.0 (0.0-0.2) /100WBC Hold Blue Top Sodium 141 (135-145) mmol/L Potassium 4.0 (3.3-5.1) mmol/L Chloride 103 (96-108) mmol/L Carbon Dioxide 31 H (22-29) mmol/L Anion Gap 11 L (12-20) BUN 13 (9-16) mg/dL Creatinine 0.87 (0.5-1.4) mg/dL Estim Creat Clear Calc 72.1 Estimated GFR > 60 Random Glucose 112 D (60-115) mg/dL Calcium 8.3 L D (8.4-10.2) mg/dL Ferritin 55 (10-250) ng/mL Total Bilirubin 0.3 (0.0-1.0) mg/dL Direct Bilirubin < 0.2 (0.0-0.5) mg/dL AST 25 D (5-31) U/L ALT 26 (0-31) U/L Alkaline Phosphatase 106 (39-117) U/L Lactate Dehydrogenase 222 H (122-220) U/L Troponin I High Sens (<3.5-17.0) ng/L C-Reactive Protein 3.25 H (< or = 0.50) mg/dL Total Protein 6.3 L D (6.5-8.0) g/dL Albumin 3.7 D (3.5-5.0) g/dL COVID-19 ([facility]ERT) Positive A (Negative) COVID-19 Clin Com See Note 10/04/20 10/04/20 Range/Units 15:34 15:34 WBC (4.8-10.8) X10*3/uL RBC (4.20-5.50) X10*6/uL Hgb (12.0-16.0) g/dl Hct (37-47) % MCV (80-98) fL MCH (27.0-33.0) pg MCHC (31.0-35.0) g/dl RDW (11.0-16.0) % Plt Count (160-400) X10*3/uL MPV (9.4-12.3) fL Immature Gran % (Auto) (0.0-0.4) % Neut % (Auto) (45-73) % Lymph % (Auto) (20-40) % [place] % (Auto) (2-11) % Eos % (Auto) (0-4) % Baso % (Auto) (0-2) % Lymph # (Auto) (1.2-4.9) X10*3/uL [place] # (Auto) (0.1-1.2) X10*3/uL Eos # (Auto) (0.0-0.4) X10*3/uL Baso # (Auto) (0.0-0.2) X10*3/uL Abs Immat Gran (auto) (0.00-0.03) X10*3/uL Absolute Neuts (auto) (2.0-8.3) X10*3/uL Absolute Nucleated RBC (0.0-0.012) X10*3/uL Nucleated RBC % (auto) (0.0-0.2) /100WBC Hold Blue Top SEE NOTE Sodium (135-145) mmol/L Potassium (3.3-5.1) mmol/L Chloride (96-108) mmol/L Carbon Dioxide (22-29) mmol/L Anion Gap (12-20) BUN (9-16) mg/dL Creatinine (0.5-1.4) mg/dL Estim Creat Clear Calc Estimated GFR Random Glucose (60-115) mg/dL Calcium (8.4-10.2) mg/dL Ferritin (10-250) ng/mL Total Bilirubin (0.0-1.0) mg/dL Direct Bilirubin (0.0-0.5) mg/dL AST (5-31) U/L ALT (0-31) U/L Alkaline Phosphatase (39-117) U/L Lactate Dehydrogenase (122-220) U/L Troponin I High Sens 8.6 (<3.5-17.0) ng/L C-Reactive Protein (< or = 0.50) mg/dL Total Protein (6.5-8.0) g/dL Albumin (3.5-5.0) g/dL COVID-19 ([facility]ERT) (Negative) COVID-19 Clin Com Imaging Data Chest x-ray: Attestation: I personally reviewed and interpreted this imaging study as follows: Radiologist's impression: CLINICAL INFORMATION: Chest pain COMPARISON: 04/27/2020 TECHNIQUE: Frontal view of the chest was obtained. FINDINGS: The lungs are well expanded. No dense consolidation, edema, or effusion. Diffuse bronchial wall thickening. No pneumothorax. The cardiomediastinal silhouette is unchanged. XR/XR chest 1V IMPRESSION: No consolidation. Bronchial wall thickening can be seen with a small airways process such as asthma or atypical/viral infection. ECG Data Attestation: I personally reviewed and interpreted this ECG as follows: ECG interpretation date: 10/04/20 ECG interpretation time: 15:41 Interpretation: Normal sinus rhythm with a rate of 82, normal MD, normal QRS, normal QTC Discharge Plan Discharge Clinical Impression: COVID-19 Instructions: COVID-19 (Coronavirus Disease 2019) (ED) Additional Instructions: You tested positive today for COVID-19. Per the CDC was quarantine for total 10 days and her symptoms must be resolved for greater than 24 hours Increase fluids, rest Take Motrin or Tylenol if able as needed for pain or fever Start prednisone tomorrow Continue nebulizers Prescriptions: New prednisone 20 mg tablet 40 mg PO DAILY Qty: 8 RF: 0 No Action glipizide 5 mg tablet 5 mg PO DAILY 30 Days Qty: 30 RF: 4 dicyclomine 10 mg capsule [id number] mg PO QID PRN (Reason: for cramps) Qty: 240 RF: 3 dexlansoprazole [Dexilant] 60 mg capsule,biphase delayed releas 60 mg PO DAILY Qty: 30 RF: 3 furosemide 20 mg tablet 20 mg PO BID Qty: 60 RF: 3 bupropion HCl 300 mg tablet extended release 24 hr 300 mg PO QAM 30 Days Qty: 30 RF: 2 albuterol sulfate [ProAir HFA] 90 mcg/actuation HFA aerosol inhaler 2 puff inhalation Q6H PRN (Reason: shortness of breath or wheezing) 30 Days Qty: 8.5 RF: 4 losartan 25 mg tablet 25 mg PO DAILY Qty: 30 RF: 3 (DME) FreeStyle Lite Strips Strip See Rx Instructions .ROUTE .MEDSUPPLY Qty: 100 RF: 1 (DME) lancets [FreeStyle Lancets] 28 gauge misc See Rx Instructions .ROUTE .MEDSUPPLY Qty: 100 RF: 1 alcohol swabs Pads, Medicated 1 pad topical DAILY Qty: 100 RF: 1 cetirizine 10 mg tablet 10 mg PO DAILY Qty: 30 RF: 2 acetaminophen [Mapap Arthritis Pain] 650 mg tablet extended release 650 mg PO Q12H PRN (Reason: for pain) Qty: 60 RF: 2 carisoprodol 350 mg tablet 350 mg PO ONCE PRN (Reason: muscle pain) 30 Days Qty: 30 RF: 1 Trulicity 0.75 mg/0.5 mL pen injector 0.75 mg subcut QWEEK 30 Days Qty: 2 RF: 2 gabapentin 600 mg tablet 600 mg PO QID Qty: 120 RF: 2 ibuprofen 800 mg tablet 800 mg PO BID PRN (Reason: for pain) Qty: 60 RF: 1 tizanidine 4 mg tablet 4 mg PO BID PRN (Reason: muscle spasm) 30 Days Qty: 60 RF: 0 aspirin 81 mg tablet,delayed release (DR/EC) 81 mg PO DAILY 90 Days Qty: 90 RF: 0 atorvastatin 80 mg tablet 80 mg PO DAILY Qty: 30 RF: 3 Stiolto Respimat 2.5-2.5 mcg/actuation Mist 2 puff INHALATION DAILY RF: 0 mupirocin 2 % ointment 1 appl topical BID Qty: 15 RF: 0 acetaminophen [Mapap Arthritis Pain] 650 mg tablet extended release 1 tab PO Q12H PRN (Reason: pain) RF: 0 lubiprostone [Amitiza] 24 mcg capsule 1 cap PO BID RF: 0 cholecalciferol (vitamin D3) [Vitamin D3] 50 mcg (2,000 unit) tablet 1 tab PO DAILY RF: 0 bisacodyl [Dulcolax (bisacodyl)] 5 mg tablet,delayed release (DR/EC) 10 mg PO BEDTIME 2 Days Qty: 4 RF: 0 ipratropium-albuterol 0.5 mg-3 mg(2.5 mg base)/3 mL solution for nebulization 3 ml INHALATION TID 30 Days Qty: 270 RF: 6 Referrals: Joe Hale, [employer]ATOR-[employer] [Primary Care Provider] - 2 days
[2020-10-04 15:41] LABS: MANUAL DIFF FLAG NO
[2020-10-04] MEDS: methylPREDNISolone Sod Succ 125 MG/2 ML VIAL IVPUSH (15:41)
[2020-10-04] MEDS: Magnesium Sulfate/H2O 2 GM/50 ML PIGGYBACK IV (15:41)
[2020-10-04 15:44] LABS: Basophils Percent Auto 0.1 % (0-2); Eosinophils Absolute Auto 0.1 X10*3/uL (0.0-0.4); Eosinophils Percent Auto 0.7 % (0-4); Hematocrit 37.7 % (37-47); Hemoglobin 11.6 g/dl (12.0-16.0); Imm Gran Abs Auto 0.01 X10*3/uL (0.00-0.03); Imm Gran Pct Auto 0.1 % (0.0-0.4); Lymphocytes Absolute Auto 2.2 X10*3/uL (1.2-4.9); Lymphocytes Percent Auto 33.5 % (20-40); Mean Corpuscular HGB Conc 30.8 g/dl (31.0-35.0); Mean Corpuscular Hemoglobin 25.1 pg (27.0-33.0); Mean Corpuscular Volume 81.4 fL (80-98); Mean Platelet Volume 9.2 fL (9.4-12.3); Monocytes Absolute Auto 0.6 X10*3/uL (0.1-1.2); Monocytes Percent Auto 8.2 % (2-11); Neutrophils Absolute Auto 3.8 X10*3/uL (2.0-8.3); Neutrophils Percent Auto 57.4 % (45-73); Platelet Count 310 X10*3/uL (160-400); Red Blood Count 4.63 X10*6/uL (4.20-5.50); Red Cell Distribution Width 16.8 % (11.0-16.0); White Blood Count 6.7 X10*3/uL (4.8-10.8)
--- NOTE | 2020-10-04 15:45 | PC.NURSE ---
IV placed and labs obtained. pt medicated with solumedrol and mag. Sats mid 90s on RA. Pt's breathing is non-labored while at rest.
[2020-10-04 15:53] LABS: COVID-19 Test Positive (Negative)
[2020-10-04] MEDS: Albuterol/Iprat 2.5/0.5MG 3 ML AMPUL.NEB INHALE (15:55)
[2020-10-04 15:56] VITALS: PULSE 74; O2SAT 94
[2020-10-04 16:12] LABS: Alanine Aminotransferase 26 U/L (0-31); Albumin Level 3.7 g/dL (3.5-5.0); Alkaline Phosphatase 106 U/L (39-117); Anion Gap 11 (12-20); Aspartate Amino Transferase 25 U/L (5-31); Bilirubin Direct < 0.2 mg/dL (0.0-0.5); Bilirubin Total 0.3 mg/dL (0.0-1.0); Blood Urea Nitrogen 13 mg/dL (9-16); Calcium 8.3 mg/dL (8.4-10.2); Carbon Dioxide 31 mmol/L (22-29); Chloride 103 mmol/L (96-108); Creatinine Clr Calc Pharmacy 72.1; Estimated Glomerular Filt Rate > 60; Glucose Random 112 mg/dL (60-115); Sodium 141 mmol/L (135-145); Total Protein 6.3 g/dL (6.5-8.0)
[2020-10-04 16:55] LABS: C Reactive Protein 3.25 mg/dL (< or = 0.50); Lactate Dehydrogenase 222 U/L (122-220)
[2020-10-04 17:08] LABS: Troponin-I High Sensitivity 8.6 ng/L (<3.5-17.0)
[2020-10-04 17:11] LABS: Ferritin 55 ng/mL (10-250)
[2020-10-04 17:31] LABS: Procalcitonin 0.02 ng/mL
[2020-10-04 17:40] VITALS: O2SAT 92
--- NOTE | 2020-10-04 17:41 | PC.NURSE ---
Pt able to maintain o2 sats 90-93% while ambulating. She becomes winded with exertion but is able to recover quickly with rest.
--- NOTE | 2020-10-04 18:26 | PC.NURSE ---
Repeat Troponin drawn. Pt awaiting disposition.
[2020-10-04] MEDS: iohexoL 350 MG/ML 100 ML INFUS..BTL IV (19:03)
[2020-10-04 21:11] LABS: Troponin-I High Sensitivity 8.9 ng/L (<3.5-17.0)
[2020-10-04 22:21] VITALS: BP 137/72; PULSE 96; RESP 18; TEMP 37.4; O2SAT 93
[2020-10-04 23:00] VITALS: PULSE 94; RESP 18; O2SAT 93
--- NOTE | 2020-10-04 23:33 | PC.NURSE ---
this RN contacted the person to notif which the patient wanted this RN to, to ask for a ride, Jaja reported that she will ask someone else to come get her due to not having a vehicle at this time, the patient is aware.
== END 2020-10-04 23:00 | disposition home or self-care (01) ==
PROVIDERS: Nurse Practitioner Family; Emergency Provider Emergency Medicine; PCP Nurse Practitioner Family
DX: U07.1 COVID-19 (principal); R05 Cough; R06.00 Dyspnea, unspecified; F17.210 Nicotine dependence, cigarettes, uncomplicated; Z71.6 Tobacco abuse counseling; F14.90 Cocaine use, unspecified, uncomplicated
CPT/HCPCS: 36415; 71045; 71275; 80048; 80076; 82728; 83615; 84145; 84484; 85025; 86140; 87635; 93005; 94640; 96360; 96361; 96374; 99284; J2930; J3475; Q9967

== ENCOUNTER 2020-10-27 12:29 | Day surgery (SDC) | payer OTHER, SELFPAY ==
[2020-10-27 12:47] LABS: Glucose, Whole Blood 181 mg/dL (60-115)
[2020-10-27 12:54] VITALS: BP 119/70; PULSE 92; RESP 22; TEMP 36.5; O2SAT 91; BMI 38.4
--- NOTE | 2020-10-27 14:03 | W.PM.OPN ---
Operative Note Operative Note Date of Service: 10/27/20 Narrative: Preop diagnosis: 1. Right Carpal tunnel syndrome Postop diagnosis: same Procedure: 1. Right Carpal tunnel release Surgeon: Stacia Whitfield MD Anesthesia: local block using 1% lidocaine with epinephrine Findings: Thickened transverse carpal ligament. EBL: Less than 5 mL Specimens: None Complications: None Disposition: Brought to recovery room in stable condition Plan: Follow-up for 7-10 days for wound check and suture removal Indications: The patient is 50 years old, with right carpal tunnel syndrome that has been unresponsive to nonoperative management. The risks and benefits of operative treatment including but not limited to risk of damage to blood vessels, nerves, tendons, infection, persistent pain, persistent symptoms, or possible need for additional surgery were discussed with the patient and the patient wishes to proceed with surgery. Procedure: Once consent was obtained a local block was performed using a combination of 1% lidocaine with epinephrine. The patient was then brought back to the operating suite and placed on the operative table in supine position. A tourniquet was applied to the proximal aspect of the [ ] upper extremity and the limb was prepped and draped in a standard surgical fashion. Once assured that we had a good block, a 1.5 cm longitudinal incision was made centered over the carpal tunnel. The incision was made through the skin to the subcutaneous tissues using a #15 blade. Dissection was made down to the level of the transverse carpal ligament with care being taken to protect the palmar cutaneous nerve. Once the transverse carpal ligament was clearly visualized, a longitudinal incision was made in the transverse carpal ligament 1st using a #15 blade, then using tenotomy scissors under direct visualization. Care was taken to look for and protect the motor branch of the median nerve when seen in this area. Once satisfied with our carpal tunnel release the wound was copiously irrigated with normal saline and hemostasis was obtained with a brief period of local pressure. The skin edges were reapproximated with some 5.0 nylon suture material and a sterile dressing was applied. The patient appears to have tolerated the procedure well and with no complications. All digits were well vascularized at the conclusion of the case.
[2020-10-27] MEDS: Lidocaine HCl 1%/Epi 1:100,000 20 ML VIAL 9 ML INFILTRATI (14:43)
[2020-10-27 16:07] VITALS: BP 135/70; PULSE 81; RESP 17; TEMP 36.8; O2SAT 94
== END 2020-10-27 15:00 | disposition home or self-care (01) ==
PROVIDERS: PCP Nurse Practitioner Family; Visit Provider Orthopaedic Surgery
PROC: (CPT 64721; principal; 2020-10-27 13:20)
DX: G56.01 Carpal tunnel syndrome, right upper limb (principal); J96.20 Acute and chronic respiratory failure, unspecified whether with hypoxia or hypercapnia; J44.9 Chronic obstructive pulmonary disease, unspecified; E11.9 Type 2 diabetes mellitus without complications; I10 Essential (primary) hypertension; G47.33 Obstructive sleep apnea (adult) (pediatric); F17.210 Nicotine dependence, cigarettes, uncomplicated; F14.90 Cocaine use, unspecified, uncomplicated; E66.9 Obesity, unspecified; Z68.41 Body mass index [BMI] 40.0-44.9, adult; Z88.1 Allergy status to other antibiotic agents; Z88.8 Allergy status to other drugs, medicaments and biological substances
CPT/HCPCS: 64721; 82947

== ENCOUNTER 2020-11-03 18:22 | Inpatient (IN) | payer OTHER, SELFPAY ==
[2020-11-03] VITALS (15 sets, daily range): BP systolic 110–216; BP diastolic 59–159; PULSE 79–105; RESP 5–25; TEMP 36.1–36.6; O2SAT 81–99; BMI 33.0; BMI 34.1
--- NOTE | ~2020-11-03 | XR_ITS ---
EXAMINATION: PORTABLE CHEST 1 VIEW CLINICAL INFORMATION: hypoxia . COMPARISON: 10/04/2020. TECHNIQUE: Portable frontal view of the chest was obtained. FINDINGS: The lungs are well expanded. Minimal basilar markings likely due to atelectasis. No focal infiltrate, effusion, edema, or pneumothorax. Cardiac and mediastinal silhouettes are within normal limits for technique. No acute bony abnormality seen. XR/XR chest 1V IMPRESSION: Minimal basilar markings likely due to atelectasis.
--- NOTE | ~2020-11-03 | CT_ITS ---
EXAMINATION: CT HEAD WITHOUT CONTRAST CLINICAL INFORMATION: Altered mental status. COMPARISON: None TECHNIQUE: Contiguous axial imaging was performed from the skull base to vertex without intravenous administration of contrast. This CT examination was performed using dose optimization techniques as appropriate, variously including the following: *Automated exposure control *Adjustment of mA and/or kV according to patient size (this includes techniques or standardized protocols for targeted exams where dose is matched to indication/reason for exam; i.e. extremities or head) *Use of iterative reconstruction technique DLP: 688 mGy-cm FINDINGS: Patient motion related artifacts are noted on multiple images. Brain parenchyma has normal attenuation. No evidence of cerebral edema, mass or hemorrhage. No extra-axial fluid collection. The benson-white matter differentiation is maintained. No evidence of an acute major vascular territory infarction. There is normal anatomic variation with regards to shape of the body and frontal horns of the lateral ventricles. No hydrocephalus. Cerebellum and brainstem are unremarkable. The calvarium is intact. The visualized paranasal sinuses, mastoid air cells and middle ear cavities are well aerated. The temporomandibular joints are suboptimally evaluated due to motion degradation of images through the skull base region. Orbits and globes are unremarkable. CT/CT head/brain wo con IMPRESSION: No acute intracranial pathology. No evidence of intracranial mass, hemorrhage or major vascular territory infarction.
--- NOTE | ~2020-11-03 | CT_ITS ---
EXAMINATION: CT ANGIOGRAM OF THE CHEST WITH AND WITHOUT CONTRAST (CT PULMONARY ANGIOGRAM FOR PE) CLINICAL INFORMATION: Reason for Exam Acute hypoxia COMPARISON: Chest x-ray 30 minutes earlier and CTA chest 10/04/2020 TECHNIQUE: Prior to contrast administration, noncontrast localization images were obtained. Subsequently, multidetector volumetric imaging was performed from the thoracic inlet to below the diaphragms following the administration of 65 mL Omnipaque 350 intravenous contrast. No contrast reaction reported Sagittal, coronal, and MIP oblique sagittal reformatted images were obtained on the CT workstation, uploaded to PACS, and reviewed. Today's examination is limited secondary to respiratory motion artifact. This CT examination was performed using dose optimization techniques as appropriate, variously including the following: *Automated exposure control *Adjustment of mA and/or kV according to patient size (this includes techniques or standardized protocols for targeted exams where dose is matched to indication/reason for exam; i.e. extremities or head) *Use of iterative reconstruction technique Total exam dose-length product 529 mGy-cm FINDINGS: Lumbar is normal in size. Coronary artery calcifications are present. No pericardial effusion. No pulmonary arterial filling defect to suggest pulmonary embolus. Normal caliber abdominal aorta. No gross mediastinal lymphadenopathy. The lungs are adequately aerated. Mild patchy airspace disease is again noted which appears relatively similar prominence. No pneumothorax. No pleural effusion. No large pulmonary mass. Visualized portion of the upper abdomen demonstrate an enteric tube which terminates within the stomach. There is some mild nodularity of the adrenal glands noted. Moderate diffuse degenerative changes of the spine. Old healed left-sided rib fractures. Endotracheal tube in expected position. CT/CT angio chest PE protocol IMPRESSION: -No pulmonary embolus. -Relatively stable prominence of patchy bilateral airspace disease. VTE: negative
--- NOTE | ~2020-11-03 | XR_ITS ---
EXAMINATION: XR CHEST CLINICAL INFORMATION: Post intubation and central line COMPARISON: Chest radiograph earlier this evening at 7:13 PM TECHNIQUE: Frontal view of the chest was obtained. FINDINGS: An ET tube is now present with its tip 4.7 cm above the jg. A right IJ line has been placed with its tip in the SVC. An NG tube has been placed with its tip in the stomach. Heart size mildly enlarged. Left basilar atelectasis/infiltrate present unchanged. No pneumothorax. XR/XR chest 1V IMPRESSION: ET and NG tubes and IJ line all in good position
--- NOTE | 2020-11-03 18:39 | ED_ITS ---
HPI - Altered Mental Status General Chief Complaint: Altered Mental Status Stated Complaint: AMS Time Seen by Provider: 11/03/20 18:38 Source: EMS Mode of arrival: EMS Limitations: altered mental status History of Present Illness HPI narrative: Patient is 50 years old smoker cocaine user with history of asthma/COPD obstructive sleep apnea, hypertension diabetes mellitus, congestive heart failure, depression admitted multiple times for chronic hypoxic and hypercapnic respiratory failure on CPAP in the night not on home oxygen. covid +ve on 10/04/20, Per family patient was sleeping in a recliner without CPAP as u sual woke up agitated and confused. Patient had carpal tunnel surgery of right hand last week and was not doing much at home was normal in the morning. On arrival patient was very agitated saturating in 80s pupils 3 mm no signs of head injury Related Data Home Medications Medication Instructions Recorded Confirmed Stiolto Respimat 2 puff INHALATION DAILY 04/12/20 10/04/20 acetaminophen [Mapap Arthritis 1 tab PO Q12H PRN 09/06/20 10/04/20 Pain] Previous Rx's Medication Instructions Recorded bisacodyl 5 mg tablet,delayed 10 mg PO BEDTIME 2 Days #4 tab 06/29/20 release dexlansoprazole 60 mg 60 mg PO DAILY #30 cap 07/14/20 capsule,biphase delayed release dicyclomine 10 mg capsule [id number] mg PO QID PRN #240 cap 07/14/20 albuterol sulfate 90 mcg/actuation 2 puff INHALATION Q6H PRN 30 Days 08/08/20 aerosol inhaler #8.5 g mupirocin 1 appl TOPICAL BID #15 g 08/25/20 ipratropium 0.5 mg-albuterol 3 mg 3 ml INHALATION TID 30 Days #270 ml 09/01/20 (2.5 mg base)/3 mL nebulization soln alcohol swabs 1 pad TOPICAL DAILY #100 ea 09/07/20 blood sugar diagnostic #100 ea 09/07/20 lancets 28 gauge #100 ea 09/07/20 acetaminophen 650 mg 650 mg PO Q12H PRN #60 tab 09/21/20 tablet,extended release aspirin 81 mg tablet,delayed 81 mg PO DAILY 90 Days #90 tab 09/28/20 release atorvastatin 80 mg tablet 80 mg PO DAILY #30 tab 09/28/20 carisoprodol 350 mg tablet 350 mg PO ONCE PRN 30 Days #30 tab 09/28/20 dulaglutide 0.75 mg/0.5 mL 0.75 mg SUBCUT QWEEK 30 Days #2 ml 09/28/20 subcutaneous pen injector gabapentin 600 mg tablet 600 mg PO QID #120 tab 09/28/20 ibuprofen 800 mg tablet 800 mg PO BID PRN #60 tab 09/28/20 tizanidine 4 mg tablet 4 mg PO BID PRN 30 Days #60 tab 09/28/20 prednisone 40 mg PO DAILY #8 tab 10/04/20 hydrocodone-acetaminophen 1 tab PO Q4-6H PRN #5 tab 10/27/20 furosemide 20 mg tablet 20 mg PO BID #60 tab 11/01/20 glipizide 5 mg tablet 5 mg PO DAILY 30 Days #30 tab 11/03/20 Allergies Allergy/AdvReac Type Severity Reaction Status Date / Time doxycycline Allergy Severe Swelling Verified 10/27/20 12:49 varenicline [From CHANTIX] Allergy Severe ANAPHYLAXIS Verified 10/27/20 12:49 azithromycin Allergy Mild Rash Verified 10/27/20 12:49 cetirizine Allergy Mild Rash Verified 10/27/20 12:49 famotidine Allergy Mild Rash Verified 10/27/20 12:49 linaclotide [Linzess] Allergy Mild Rash Verified 10/27/20 12:49 barium sulfate Allergy Unknown angioedema Verified 10/27/20 12:49 Review of Systems Review of Systems: Yes Unobtainable due to mental status Neurologic: Reports confusion Psychiatric: Psychiatric: Reports confusion PMFSH Past Medical History Medical History Acute and chronic respiratory failure, unspecified whether with hypoxia or hypercapnia Acute and chronic respiratory failure, unspecified whether with hypoxia or hypercapnia Asthma Carpal tunnel syndrome of right wrist COPD (chronic obstructive pulmonary disease) COPD exacerbation Crack cocaine use Depression Diabetes mellitus Gastroparesis Hernia High triglycerides HTN (hypertension) Knee pain, bilateral Nausea & vomiting Obesity (BMI 30-39.9) Obstructive sleep apnea HENRY (obstructive sleep apnea) Respiratory failure Smoker Surgical History History of esophagogastroduodenoscopy (EGD) History of open reduction and internal fixation (ORIF) procedure History of pubovaginal sling History of umbilical hernia repair Hx of section Hx of cholecystectomy Family History Family History Father Heart disease HENRY (obstructive sleep apnea) Family history of breast cancer Mother Asthma Emphysema, unspecified Bronchitis Smoker Alcoholism Bone marrow disease Maternal Grandmother Diabetes Social History Social History Household Members: None Housing: House Alcohol intake: unknown Smoking Status: Unknown if ever smoked Tobacco Type: Cigarette Packs Per Day: 1 Cigarettes Per Day: 20.0 Years Smoked: 35 Second Hand Smoke Exposure: No Use of substances other than those prescribed or required for medical reasons: Yes Substance Use Type: Crack/Cocaine Currently Displaying Signs/Symptoms of Drug Intoxication Withdrawal: No Advance Directives: Yes Advance Directives on File: Yes Advance Directives Date on File: 04/15/20 Patient : No service: No Current occupational status: unemployed 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 Physical Exam Vital Signs: Vital Signs: Last Vital Signs Temp 98.2 F 11/04/20 00:00 Pulse 95 11/04/20 00:00 Resp 24 H 11/04/20 00:00 BP 83/53 L 11/04/20 00:25 Pulse Ox 98 11/04/20 00:00 Body Mass Index 33.0 Const: General: acute distress severe and respiratory, confusion, ill appearing, lethargic and patient obtunded Orientation/consciousness: confusion, patient obtunded and lethargic HENMT: Head: Yes normocephalic and Yes atraumatic General nose exam: Normal external nose present Face and sinus: Yes normal facial exam Eyes: General: appearance normal, both eyes and all related structures Conjunctivae: conjunctivae normal Sclerae: sclerae normal Pupils: Equal, round and reactive pupils present Neck: Neck: Yes normal visual inspection, Yes no lymphadenopathy and Yes no JVD Chest: Chest palpation & inspection: normal inspection of the chest and normal palpation of entire chest wall Resp: Effort & Inspection: abnormal respiratory pattern Enoc-Christopher pattern, labored and paradoxical thoraco-abdominal movements Auscultation: crackles and diminished lung sounds Cardio: Rate: regular rate Rhythm: regular rhythm Heart sounds: S1 normal heart sound present and S2 normal heart sound present Peripheral pulses: Peripheral pulses 2+ throughout GI: Inspection: Yes normal to inspection Palpation (GI): Soft to palpation and nontender Auscultation: normal bowel sounds Skin: General skin exam: no rashes or lesions noted Neuro: Other: Patient obtunded responding to painful stimuli opening eyes and moaning General: moves all extremities (To painful stimuli), no focal motor deficits, confusion and patient obtunded Cranial nerves: Yes Equal, round and reactive pupils present Extrem: General: Yes full ROM and Yes no calf tenderness Procedures Central Line Placement Right IJ: Time Out Performed: Yes Patient Placed on Monitor/Pulse Ox: Yes MD Prep: mask, gown and gloves Central Line Prep: Chlorhexidine scrub Local Anesthetic: lidocaine 2% Amount of anesthesia used (mL): 2 Ultrasound Used for Placement: Yes Central Line Lumen Inserted: triple Post Procedure: sutured in place, good blood return, all ports aspirated, flushed, capped and sterile dressing applied Post Procedure X-Ray: tip of catheter in good position Patient Tolerated Procedure: well Complications: none Intubation Time out performed: Yes sedative: Etomidate Mg Given: 20 paralytic: Rocuronium Mg Given: 50 Laryngoscope: Radha Assist Device Used: Bougie ET Tube Size: 7.5 ET Tube Uncuffed: Yes Tube Secured Depth (cm): 23 Tube Secured Location: teeth Tube Placement Confirmation: visualized tube passing through cords Patient Tolerated Procedure: well Intubation Complications: none Additional Comments: Thick secretions in the mouth MDM - Altered Mental Status MDM Narrative Medical decision making narrative: Patient with acute on chronic hypoxic hypercapnic respiratory failure with altered mental status initial venous blood gases showed 7.27/66/38/31/61/2.5 mild respiratory acidosis. Placed on BiPAP for 2-1/2 hours repeat ABG showed 7.16/87/87/31 worsening of respiratory acidosis urine cocaine was positive patient was intubated for respiratory failure right IJ central line placed admitted ICU patient had minimal response to Narcan and no known history of opiate use per family while intubating noticed patient had very thick yellow secretions the back of the throat Medical Records Attestation: I reviewed the patient's medical records. Lab Data Attestation: I reviewed the patient's lab results. Result diagrams: 11/03/20 19:01 11/03/20 19:01 Labs: Lab Results 11/03/20 11/03/20 11/03/20 Range/Units 18:53 19:01 19:01 WBC 10.3 (4.8-10.8) X10*3/uL RBC 5.11 (4.20-5.50) X10*6/uL Hgb 12.9 (12.0-16.0) g/dl Hct 42.5 (37-47) % MCV 83.2 (80-98) fL MCH 25.2 L (27.0-33.0) pg MCHC 30.4 L (31.0-35.0) g/dl RDW 16.8 H (11.0-16.0) % Plt Count 432 H D (160-400) X10*3/uL MPV 9.4 (9.4-12.3) fL Immature Gran % (Auto) 0.2 (0.0-0.4) % Neut % (Auto) 62.0 (45-73) % Lymph % (Auto) 29.6 (20-40) % [place] % (Auto) 6.6 (2-11) % Eos % (Auto) 1.4 (0-4) % Baso % (Auto) 0.2 (0-2) % Lymph # (Auto) 3.1 (1.2-4.9) X10*3/uL [place] # (Auto) 0.7 (0.1-1.2) X10*3/uL Eos # (Auto) 0.1 (0.0-0.4) X10*3/uL Baso # (Auto) 0.0 (0.0-0.2) X10*3/uL Abs Immat Gran (auto) 0.02 (0.00-0.03) X10*3/uL Absolute Neuts (auto) 6.4 (2.0-8.3) X10*3/uL Absolute Nucleated RBC 0.000 (0.0-0.012) X10*3/uL Nucleated RBC % (auto) 0.0 (0.0-0.2) /100WBC PT 12.7 (10.8-13.0) SEC INR 1.1 (0.9-1.1) APTT 38.2 H (24.1-38.0) SEC O2 Saturation % ABG pH at Pt Temp (7.35-7.45) ABG pH (Temp Correct) (7.35-7.45) ABG pCO2 at Pt Temp (32-45) mmHg ABG pCO2 (Temp Corrct (32-45) mmHg ABG pO2 at Pt Temp (83-108) mmHg ABG pO2 (Temp Correct (83-108) ABG HCO3 (22-26) mmol/L ABG Base Excess (Actual) mmol/L VBG pH (7.32-7.43) VBG pCO2 mmHg VBG pO2 mmHg VBG HCO3 (22-26) mmol/L VBG O2 Saturation % VBG Base Excess mmol/L Sodium (135-145) mmol/L Potassium (3.3-5.1) mmol/L Chloride (96-108) mmol/L Carbon Dioxide (22-29) mmol/L Anion Gap (12-20) BUN (9-16) mg/dL Creatinine (0.5-1.4) mg/dL Estim Creat Clear Calc Estimated GFR POC Glucose 113 (60-115) mg/dL Random Glucose (60-115) mg/dL Lactic Acid (0.5-2.0) mmol/L Calcium (8.4-10.2) mg/dL Magnesium (1.6-2.6) mg/dL Total Bilirubin (0.0-1.0) mg/dL AST (5-31) U/L ALT (0-31) U/L Alkaline Phosphatase (39-117) U/L Troponin I High Sens (<3.5-17.0) ng/L B-Natriuretic Peptide (<100) pg/mL Total Protein (6.5-8.0) g/dL Albumin (3.5-5.0) g/dL Urine Color Urine Appearance Urine pH (5.0-8.0) Ur Specific [place] (1.005-1.025) Urine Protein (NEG-TRACE) MG/DL Urine Glucose (UA) (NEG) MG/DL Urine Ketones (NEG) MG/DL Urine Blood (NEG) Urine Nitrite (NEG) Ur Leukocyte Esterase (NEG) Urine Opiates Screen (Not Detect) Ur Barbiturates Screen (Not Detect) Ur Phencyclidine Scrn (Not Detect) Ur Amphetamines Screen (Not Detect) U Benzodiazepines Scrn (Not Detect) Urine Cocaine Screen (Not Detect) U Marijuana (THC) Screen (Not Detect) Ethyl Alcohol mg/dL COVID-19 ([facility]) (Negative) COVID-19 Clin Com 11/03/20 11/03/20 11/03/20 Range/Units 19:01 19:01 19:01 WBC (4.8-10.8) X10*3/uL RBC (4.20-5.50) X10*6/uL Hgb (12.0-16.0) g/dl Hct (37-47) % MCV (80-98) fL MCH (27.0-33.0) pg MCHC (31.0-35.0) g/dl RDW (11.0-16.0) % Plt Count (160-400) X10*3/uL MPV (9.4-12.3) fL Immature Gran % (Auto) (0.0-0.4) % Neut % (Auto) (45-73) % Lymph % (Auto) (20-40) % [place] % (Auto) (2-11) % Eos % (Auto) (0-4) % Baso % (Auto) (0-2) % Lymph # (Auto) (1.2-4.9) X10*3/uL [place] # (Auto) (0.1-1.2) X10*3/uL Eos # (Auto) (0.0-0.4) X10*3/uL Baso # (Auto) (0.0-0.2) X10*3/uL Abs Immat Gran (auto) (0.00-0.03) X10*3/uL Absolute Neuts (auto) (2.0-8.3) X10*3/uL Absolute Nucleated RBC (0.0-0.012) X10*3/uL Nucleated RBC % (auto) (0.0-0.2) /100WBC PT (10.8-13.0) SEC INR (0.9-1.1) APTT (24.1-38.0) SEC O2 Saturation % ABG pH at Pt Temp (7.35-7.45) ABG pH (Temp Correct) (7.35-7.45) ABG pCO2 at Pt Temp (32-45) mmHg ABG pCO2 (Temp Corrct (32-45) mmHg ABG pO2 at Pt Temp (83-108) mmHg ABG pO2 (Temp Correct (83-108) ABG HCO3 (22-26) mmol/L ABG Base Excess (Actual) mmol/L VBG pH (7.32-7.43) VBG pCO2 mmHg VBG pO2 mmHg VBG HCO3 (22-26) mmol/L VBG O2 Saturation % VBG Base Excess mmol/L Sodium 144 (135-145) mmol/L Potassium 4.2 (3.3-5.1) mmol/L Chloride 103 (96-108) mmol/L Carbon Dioxide 31 H (22-29) mmol/L Anion Gap 14 (12-20) BUN 13 (9-16) mg/dL Creatinine 1.26 (0.5-1.4) mg/dL Estim Creat Clear Calc 53.7 Estimated GFR 45 POC Glucose (60-115) mg/dL Random Glucose 114 (60-115) mg/dL Lactic Acid (0.5-2.0) mmol/L Calcium 9.2 D (8.4-10.2) mg/dL Magnesium (1.6-2.6) mg/dL Total Bilirubin 0.3 (0.0-1.0) mg/dL AST 11 D (5-31) U/L ALT 11 (0-31) U/L Alkaline Phosphatase 102 (39-117) U/L Troponin I High Sens 7.2 (<3.5-17.0) ng/L B-Natriuretic Peptide 27 (<100) pg/mL Total Protein 6.6 (6.5-8.0) g/dL Albumin 4.0 (3.5-5.0) g/dL Urine Color Urine Appearance Urine pH (5.0-8.0) Ur Specific [place] (1.005-1.025) Urine Protein (NEG-TRACE) MG/DL Urine Glucose (UA) (NEG) MG/DL Urine Ketones (NEG) MG/DL Urine Blood (NEG) Urine Nitrite (NEG) Ur Leukocyte Esterase (NEG) Urine Opiates Screen (Not Detect) Ur Barbiturates Screen (Not Detect) Ur Phencyclidine Scrn (Not Detect) Ur Amphetamines Screen (Not Detect) U Benzodiazepines Scrn (Not Detect) Urine Cocaine Screen (Not Detect) U Marijuana (THC) Screen (Not Detect) Ethyl Alcohol mg/dL COVID-19 ([facility]) (Negative) COVID-19 Clin Com 11/03/20 11/03/20 11/03/20 Range/Units 19:01 19:01 19:01 WBC (4.8-10.8) X10*3/uL RBC (4.20-5.50) X10*6/uL Hgb (12.0-16.0) g/dl Hct (37-47) % MCV (80-98) fL MCH (27.0-33.0) pg MCHC (31.0-35.0) g/dl RDW (11.0-16.0) % Plt Count (160-400) X10*3/uL MPV (9.4-12.3) fL Immature Gran % (Auto) (0.0-0.4) % Neut % (Auto) (45-73) % Lymph % (Auto) (20-40) % [place] % (Auto) (2-11) % Eos % (Auto) (0-4) % Baso % (Auto) (0-2) % Lymph # (Auto) (1.2-4.9) X10*3/uL [place] # (Auto) (0.1-1.2) X10*3/uL Eos # (Auto) (0.0-0.4) X10*3/uL Baso # (Auto) (0.0-0.2) X10*3/uL Abs Immat Gran (auto) (0.00-0.03) X10*3/uL Absolute Neuts (auto) (2.0-8.3) X10*3/uL Absolute Nucleated RBC (0.0-0.012) X10*3/uL Nucleated RBC % (auto) (0.0-0.2) /100WBC PT (10.8-13.0) SEC INR (0.9-1.1) APTT (24.1-38.0) SEC O2 Saturation % ABG pH at Pt Temp (7.35-7.45) ABG pH (Temp Correct) (7.35-7.45) ABG pCO2 at Pt Temp (32-45) mmHg ABG pCO2 (Temp Corrct (32-45) mmHg ABG pO2 at Pt Temp (83-108) mmHg ABG pO2 (Temp Correct (83-108) ABG HCO3 (22-26) mmol/L ABG Base Excess (Actual) mmol/L VBG pH (7.32-7.43) VBG pCO2 mmHg VBG pO2 mmHg VBG HCO3 (22-26) mmol/L VBG O2 Saturation % VBG Base Excess mmol/L Sodium (135-145) mmol/L Potassium (3.3-5.1) mmol/L Chloride (96-108) mmol/L Carbon Dioxide (22-29) mmol/L Anion Gap (12-20) BUN (9-16) mg/dL Creatinine (0.5-1.4) mg/dL Estim Creat Clear Calc Estimated GFR POC Glucose (60-115) mg/dL Random Glucose (60-115) mg/dL Lactic Acid 1.1 (0.5-2.0) mmol/L Calcium (8.4-10.2) mg/dL Magnesium 1.8 (1.6-2.6) mg/dL Total Bilirubin (0.0-1.0) mg/dL AST (5-31) U/L ALT (0-31) U/L Alkaline Phosphatase (39-117) U/L Troponin I High Sens (<3.5-17.0) ng/L B-Natriuretic Peptide (<100) pg/mL Total Protein (6.5-8.0) g/dL Albumin (3.5-5.0) g/dL Urine Color Urine Appearance Urine pH (5.0-8.0) Ur Specific [place] (1.005-1.025) Urine Protein (NEG-TRACE) MG/DL Urine Glucose (UA) (NEG) MG/DL Urine Ketones (NEG) MG/DL Urine Blood (NEG) Urine Nitrite (NEG) Ur Leukocyte Esterase (NEG) Urine Opiates Screen (Not Detect) Ur Barbiturates Screen (Not Detect) Ur Phencyclidine Scrn (Not Detect) Ur Amphetamines Screen (Not Detect) U Benzodiazepines Scrn (Not Detect) Urine Cocaine Screen (Not Detect) U Marijuana (THC) Screen (Not Detect) Ethyl Alcohol < 10 mg/dL COVID-19 ([facility]) (Negative) COVID-19 Clin Com 11/03/20 11/03/20 11/03/20 Range/Units 19:06 19:06 19:06 WBC (4.8-10.8) X10*3/uL RBC (4.20-5.50) X10*6/uL Hgb (12.0-16.0) g/dl Hct (37-47) % MCV (80-98) fL MCH (27.0-33.0) pg MCHC (31.0-35.0) g/dl RDW (11.0-16.0) % Plt Count (160-400) X10*3/uL MPV (9.4-12.3) fL Immature Gran % (Auto) (0.0-0.4) % Neut % (Auto) (45-73) % Lymph % (Auto) (20-40) % [place] % (Auto) (2-11) % Eos % (Auto) (0-4) % Baso % (Auto) (0-2) % Lymph # (Auto) (1.2-4.9) X10*3/uL [place] # (Auto) (0.1-1.2) X10*3/uL Eos # (Auto) (0.0-0.4) X10*3/uL Baso # (Auto) (0.0-0.2) X10*3/uL Abs Immat Gran (auto) (0.00-0.03) X10*3/uL Absolute Neuts (auto) (2.0-8.3) X10*3/uL Absolute Nucleated RBC (0.0-0.012) X10*3/uL Nucleated RBC % (auto) (0.0-0.2) /100WBC PT (10.8-13.0) SEC INR (0.9-1.1) APTT (24.1-38.0) SEC O2 Saturation % ABG pH at Pt Temp (7.35-7.45) ABG pH (Temp Correct) (7.35-7.45) ABG pCO2 at Pt Temp (32-45) mmHg ABG pCO2 (Temp Corrct (32-45) mmHg ABG pO2 at Pt Temp (83-108) mmHg ABG pO2 (Temp Correct (83-108) ABG HCO3 (22-26) mmol/L ABG Base Excess (Actual) mmol/L VBG pH (7.32-7.43) VBG pCO2 mmHg VBG pO2 mmHg VBG HCO3 (22-26) mmol/L VBG O2 Saturation % VBG Base Excess mmol/L Sodium (135-145) mmol/L Potassium (3.3-5.1) mmol/L Chloride (96-108) mmol/L Carbon Dioxide (22-29) mmol/L Anion Gap (12-20) BUN (9-16) mg/dL Creatinine (0.5-1.4) mg/dL Estim Creat Clear Calc Estimated GFR POC Glucose (60-115) mg/dL Random Glucose (60-115) mg/dL Lactic Acid (0.5-2.0) mmol/L Calcium (8.4-10.2) mg/dL Magnesium (1.6-2.6) mg/dL Total Bilirubin (0.0-1.0) mg/dL AST (5-31) U/L ALT (0-31) U/L Alkaline Phosphatase (39-117) U/L Troponin I High Sens (<3.5-17.0) ng/L B-Natriuretic Peptide (<100) pg/mL Total Protein (6.5-8.0) g/dL Albumin (3.5-5.0) g/dL Urine Color YELLOW Urine Appearance CLEAR Urine pH 5.5 (5.0-8.0) Ur Specific [place] 1.010 (1.005-1.025) Urine Protein NEG (NEG-TRACE) MG/DL Urine Glucose (UA) NEG (NEG) MG/DL Urine Ketones NEG (NEG) MG/DL Urine Blood NEG (NEG) Urine Nitrite NEG (NEG) Ur Leukocyte Esterase NEG (NEG) Urine Opiates Screen Not Detected (Not Detect) Ur Barbiturates Screen Not Detected (Not Detect) Ur Phencyclidine Scrn Not Detected (Not Detect) Ur Amphetamines Screen Not Detected (Not Detect) U Benzodiazepines Scrn Not Detected (Not Detect) Urine Cocaine Screen POSITIVE H (Not Detect) U Marijuana (THC) Screen Not Detected (Not Detect) Ethyl Alcohol mg/dL COVID-19 ([facility]) Negative (Negative) COVID-19 Clin Com See Note 11/03/20 11/03/20 Range/Units 19:06 21:28 WBC (4.8-10.8) X10*3/uL RBC (4.20-5.50) X10*6/uL Hgb (12.0-16.0) g/dl Hct (37-47) % MCV (80-98) fL MCH (27.0-33.0) pg MCHC (31.0-35.0) g/dl RDW (11.0-16.0) % Plt Count (160-400) X10*3/uL MPV (9.4-12.3) fL Immature Gran % (Auto) (0.0-0.4) % Neut % (Auto) (45-73) % Lymph % (Auto) (20-40) % [place] % (Auto) (2-11) % Eos % (Auto) (0-4) % Baso % (Auto) (0-2) % Lymph # (Auto) (1.2-4.9) X10*3/uL [place] # (Auto) (0.1-1.2) X10*3/uL Eos # (Auto) (0.0-0.4) X10*3/uL Baso # (Auto) (0.0-0.2) X10*3/uL Abs Immat Gran (auto) (0.00-0.03) X10*3/uL Absolute Neuts (auto) (2.0-8.3) X10*3/uL Absolute Nucleated RBC (0.0-0.012) X10*3/uL Nucleated RBC % (auto) (0.0-0.2) /100WBC PT (10.8-13.0) SEC INR (0.9-1.1) APTT (24.1-38.0) SEC O2 Saturation 94.0 % ABG pH at Pt Temp 7.15 L* (7.35-7.45) ABG pH (Temp Correct) 7.16 L* (7.35-7.45) ABG pCO2 at Pt Temp 90 H* (32-45) mmHg ABG pCO2 (Temp Corrct 87 H* (32-45) mmHg ABG pO2 at Pt Temp 92 (83-108) mmHg ABG pO2 (Temp Correct 87 (83-108) ABG HCO3 31 H (22-26) mmol/L ABG Base Excess (Actual) 0.0 mmol/L VBG pH 7.27 L (7.32-7.43) VBG pCO2 66 mmHg VBG pO2 38 mmHg VBG HCO3 31 H (22-26) mmol/L VBG O2 Saturation 61.0 % VBG Base Excess 2.5 mmol/L Sodium (135-145) mmol/L Potassium (3.3-5.1) mmol/L Chloride (96-108) mmol/L Carbon Dioxide (22-29) mmol/L Anion Gap (12-20) BUN (9-16) mg/dL Creatinine (0.5-1.4) mg/dL Estim Creat Clear Calc Estimated GFR POC Glucose (60-115) mg/dL Random Glucose (60-115) mg/dL Lactic Acid (0.5-2.0) mmol/L Calcium (8.4-10.2) mg/dL Magnesium (1.6-2.6) mg/dL Total Bilirubin (0.0-1.0) mg/dL AST (5-31) U/L ALT (0-31) U/L Alkaline Phosphatase (39-117) U/L Troponin I High Sens (<3.5-17.0) ng/L B-Natriuretic Peptide (<100) pg/mL Total Protein (6.5-8.0) g/dL Albumin (3.5-5.0) g/dL Urine Color Urine Appearance Urine pH (5.0-8.0) Ur Specific [place] (1.005-1.025) Urine Protein (NEG-TRACE) MG/DL Urine Glucose (UA) (NEG) MG/DL Urine Ketones (NEG) MG/DL Urine Blood (NEG) Urine Nitrite (NEG) Ur Leukocyte Esterase (NEG) Urine Opiates Screen (Not Detect) Ur Barbiturates Screen (Not Detect) Ur Phencyclidine Scrn (Not Detect) Ur Amphetamines Screen (Not Detect) U Benzodiazepines Scrn (Not Detect) Urine Cocaine Screen (Not Detect) U Marijuana (THC) Screen (Not Detect) Ethyl Alcohol mg/dL COVID-19 ([facility]) (Negative) COVID-19 Clin Com ABG Data ABG results: Respiratory acidosis Imaging Data CT scan - chest: Radiologist's impression: FINDINGS: Lumbar is normal in size. Coronary artery calcifications are present. No pericardial effusion. No pulmonary arterial filling defect to suggest pulmonary embolus. Normal caliber abdominal aorta. No gross mediastinal lymphadenopathy. The lungs are adequately aerated. Mild patchy airspace disease is again noted which appears relatively similar prominence. No pneumothorax. No pleural effusion. No large pulmonary mass. Visualized portion of the upper abdomen demonstrate an enteric tube which terminates within the stomach. There is some mild nodularity of the adrenal glands noted. Moderate diffuse degenerative changes of the spine. Old healed left-sided rib fractures. Endotracheal tube in expected position. CT/CT angio chest PE protocol IMPRESSION: -No pulmonary embolus. -Relatively stable prominence of patchy bilateral airspace disease. CT scan - head: Radiologist's impression: CT/CT head/brain wo con IMPRESSION: No acute intracranial pathology. No evidence of intracranial mass, hemorrhage or major vascular territory infarction. Critical Care Time Critical Care Time Critical Care Time: Yes Total Critical Care Time: 65 Attestation: I spent 65 minutes of critical care, with interventions, assessments, speaking to patient, consultants, and family. Discharge Plan Discharge Clinical Impression: Acute metabolic encephalopathy Respiratory failure with hypercapnia Qualifiers: Chronicity: acute on chronic Qualified Code(s): J96.22 - Acute and chronic respiratory failure with hypercapnia Patient Disposition: Admitted As Inpatient Interventions: Admission Worksheet (ED) Last Done: 11/03/20 23:27 Discharge Date/Time: 11/03/20 23:00
[2020-11-03] MEDS: LORazepam 2 MG/ML VIAL IM (18:52)
--- NOTE | 2020-11-03 18:54 | ECG_ITS ---
Test Reason : AMS Blood Pressure : / mmHG Vent. Rate : 102 BPM Atrial Rate : 102 BPM P-R Int : 124 ms QRS Dur : 082 ms QT Int : 342 ms P-R-T Axes : 079 134 058 degrees QTc Int : 445 ms Sinus tachycardia Possible Anterior infarct , age undetermined but could be from body habitus and lead placement Borderline EKG When compared with ECG of 04-OCT-2020 15:41, QRS axis Shifted right Referred By: Ok Peña Electronically Signed By:DAVIS WALKER
[2020-11-03 19:09] LABS: MANUAL DIFF FLAG NO
[2020-11-03] MEDS: Naloxone HCl 0.4 MG/ML VIAL IVPUSH ×2 (19:10→21:53)
[2020-11-03 19:11] LABS: Basophils Percent Auto 0.2 % (0-2); Eosinophils Absolute Auto 0.1 X10*3/uL (0.0-0.4); Eosinophils Percent Auto 1.4 % (0-4); Hematocrit 42.5 % (37-47); Hemoglobin 12.9 g/dl (12.0-16.0); Imm Gran Abs Auto 0.02 X10*3/uL (0.00-0.03); Imm Gran Pct Auto 0.2 % (0.0-0.4); Lymphocytes Absolute Auto 3.1 X10*3/uL (1.2-4.9); Lymphocytes Percent Auto 29.6 % (20-40); Mean Corpuscular HGB Conc 30.4 g/dl (31.0-35.0); Mean Corpuscular Hemoglobin 25.2 pg (27.0-33.0); Mean Corpuscular Volume 83.2 fL (80-98); Mean Platelet Volume 9.4 fL (9.4-12.3); Monocytes Absolute Auto 0.7 X10*3/uL (0.1-1.2); Monocytes Percent Auto 6.6 % (2-11); Neutrophils Absolute Auto 6.4 X10*3/uL (2.0-8.3); Platelet Count 432 X10*3/uL (160-400); Red Blood Count 5.11 X10*6/uL (4.20-5.50); Red Cell Distribution Width 16.8 % (11.0-16.0); White Blood Count 10.3 X10*3/uL (4.8-10.8)
[2020-11-03 19:12] LABS: Glucose Urine UA NEG (NEG); Leukocyte Esterase Urine NEG (NEG); Nitrite Urine NEG (NEG); PH 5.5 (5.0-8.0); Urine Blood NEG (NEG); Urine Ketones NEG (NEG); Urine Protein NEG (NEG-TRACE)
[2020-11-03 19:12] LABS: Venous Blood Gas Refer to POC result
[2020-11-03 19:13] LABS: Appearance Urine CLEAR; Color Urine YELLOW; VBG Base Excess 2.5 mmol/L; VBG HCO3 31 mmol/L (22-26); VBG pCO2 66 mmHg; VBG pH 7.27 (7.32-7.43); VBG pO2 38 mmHg
[2020-11-03 19:16] LABS: INTERNATIONAL NORM RATIO 1.1 (0.9-1.1); Prothrombin Time 12.7 SEC (10.8-13.0)
[2020-11-03 19:21] LABS: Glucose, Whole Blood 113 mg/dL (60-115)
[2020-11-03 19:26] LABS: Partial Thromboplastin Time 38.2 SEC (24.1-38.0)
[2020-11-03 19:26] LABS: COVID-19 Test Negative (Negative)
[2020-11-03 19:27] LABS: Lactic Acid 1.1 mmol/L (0.5-2.0)
[2020-11-03 19:29] LABS: Ethanol < 10 mg/dL
[2020-11-03 19:31] LABS: Magnesium 1.8 mg/dL (1.6-2.6)
[2020-11-03 19:33] LABS: Alanine Aminotransferase 11 U/L (0-31); Alkaline Phosphatase 102 U/L (39-117); Anion Gap 14 (12-20); Aspartate Amino Transferase 11 U/L (5-31); Bilirubin Total 0.3 mg/dL (0.0-1.0); Blood Urea Nitrogen 13 mg/dL (9-16); Calcium 9.2 mg/dL (8.4-10.2); Carbon Dioxide 31 mmol/L (22-29); Chloride 103 mmol/L (96-108); Creatinine Clr Calc Pharmacy 53.7; Estimated Glomerular Filt Rate 45; Glucose Random 114 mg/dL (60-115); Potassium 4.2 mmol/L (3.3-5.1); Sodium 144 mmol/L (135-145); Total Protein 6.6 g/dL (6.5-8.0)
[2020-11-03] MEDS: Albuterol/Iprat 2.5/0.5MG 3 ML AMPUL.NEB INHALE (19:35)
[2020-11-03] MEDS: 0.9 % Sodium Chloride 1,000 ML 999 ML IVCONT (19:35)
[2020-11-03] MEDS: Albuterol Sulfate (0.083%) 2.5 MG/3 ML VIAL.NEB 5 MG INHALE (19:35)
--- NOTE | 2020-11-03 19:37 | PC.NURSE ---
this rn arrived to bed 4 just after patient was delievered by EMS. Pt had disordered breathing, periods of apnea with sao2 into mid 70's then would breath, become more alert with sao2 up to low 90's. Pupils will 5mm and reactive during period of disordered breathing. Skin pwd. LS dim throughout. flailing all over bed and difficult to manage. after 2mg ativan IM pt calmed and staff were able to insert IV, get labs and ortiz placed. SaO2 continued to drop though into 60;s on NC, NRB applied and unable to rise above mid 70's. Bipap applied and SaO2 wouldn't rise above lower 80's. 0.4 mg narcan IVP and sao2 increased to high 90's and tital volume increased rapidly. Pt tolerated CT and Bipap well. Remains sedate on bipap at this time.
[2020-11-03 19:38] LABS: B Type Natriuretic Peptide 27 pg/mL (<100)
[2020-11-03 19:43] LABS: Amphetamine Screen Urine Not Detected (Not Detect); Barbiturates, Urine Not Detected (Not Detect); Benzodiazepines Screen Urine Not Detected (Not Detect); Cannabinoid Screen Urine Not Detected (Not Detect); Cocaine Screen Urine POSITIVE (Not Detect); Opiate Screen Urine Not Detected (Not Detect); Phencyclidine Screen Urine Not Detected (Not Detect)
--- NOTE | 2020-11-03 19:45 | PC.NURSE ---
addendumn to earlier narrative. CO2 would fluxuate as well during period of disordered breathing. when apnic pt would have CO2 in 50's but would drop to 20's when increased alertness and RR.
[2020-11-03 19:49] LABS: Troponin-I High Sensitivity 7.2 ng/L (<3.5-17.0)
--- NOTE | 2020-11-03 20:09 | PC.NURSE ---
tHIS RN CALLING DAUGHTER, MARINA, STATES SHE USES CPAP HERE AND THERE HOSPITAL BED TO SIT UPRIGHT AT NIGHT. GETS RESTLESS WITH CPAP AND OFTEN SLEEPS ON COUCH, LESS USE LATELY. NO O2 USE DURING THE DAY. CALL ALEXANDREA (SON) [phone] TO GET BETTER DETAILS OF TODAY'S EPISODE ALEXANDREA STATES THAT PATIENT WAS FOUND SHAKING IN SLEEP WITH NORMAL SKIN COLOR, WAS HARD TO AROUSE, HAD NAPPED W/O CPAP ON. SON STATES MOTHER IS FULL CODE.
--- NOTE | 2020-11-03 21:03 | PC.NURSE ---
remains on bipap. provider has increased and decreased fi02 mult times. pt remains unarousable even to sternal rub. pupils 3mm. skin pwd.
[2020-11-03 21:33] LABS: ABG Refer to POC result
[2020-11-03 21:37] LABS: ABG HCO3 31 mmol/L (22-26); ABG pCO2 90 mmHg (32-45); ABG pCO2 TC 87 mmHg (32-45); ABG pH 7.15 (7.35-7.45); ABG pH TC 7.16 (7.35-7.45); ABG pO2 92 mmHg (83-108); ABG pO2 TC 87 (83-108)
--- NOTE | 2020-11-03 21:56 | PC.NURSE ---
after narcan pt was slightly more arousable with sternal rub. tidal volume increased 500 L/min up to 8-10. but all drops again after 10 minutes. claire moore and Eun HEATH present to discuess intubation.
[2020-11-03] MEDS: Rocuronium Bromide 50 MG/5 ML VIAL IVPUSH (22:10)
[2020-11-03] MEDS: Etomidate 20 MG/10 ML VIAL IVPUSH (22:10)
--- NOTE | 2020-11-03 22:44 | PC.NURSE ---
intubation was difficult but successful after 3 tried. successful with boogie. pt now on vent w/o need for sedation. propofol prepared but not administered. soft restraints in place.
--- NOTE | 2020-11-03 22:57 | P.HPCC_ITS ---
History of Present Illness Date of Service: 11/03/20 Chief Complaint: Altered mental status Pt is a 50yo feamle, current 20+ pack-year smoker, with underlying history of asthma / COPD overlap syndrome not on home O2, HENRY, cocaine use, hypertension, diabetes mellitus, congestive heart failure, depression who tested + for Covid on 10/04/20. She has been admitted several times for chronic hypoxic and hypercapnic respiratory failure. Pt's family called 911 and pt was BIBA after she woke up in her recliner confused and agitated. Family states she was her normal self earlier in the day. ER note states that upon arrival, patient was satting in the 80s and her pupils were 3 mm with no signs of a head injury. VS otherwise stable and WNL. Labs in the ER were notable for U tox positive cocaine, VBG 7.27/66/38/31/61/2.5 then ABG worsening after 2.5hrs BiPAP 7.16/87/87/31, trop 7.2, covid negative. Head and neck CT negative, CXR nothing acute. Due to worsening blood gases and patient's continued encephalopathy, patient was intubated in the ED. central line was also placed. Patient will be transferred to the ICU for monitoring. Assessment and plan discussed with Dr. Doss. Review of Systems Review of Systems: Yes Unobtainable due to mental status PMFSH Past Medical History Medical History Acute and chronic respiratory failure, unspecified whether with hypoxia or hypercapnia Acute and chronic respiratory failure, unspecified whether with hypoxia or hypercapnia Asthma Carpal tunnel syndrome of right wrist COPD (chronic obstructive pulmonary disease) COPD exacerbation Crack cocaine use Depression Diabetes mellitus Gastroparesis Hernia High triglycerides HTN (hypertension) Knee pain, bilateral Nausea & vomiting Obesity (BMI 30-39.9) Obstructive sleep apnea HENRY (obstructive sleep apnea) Respiratory failure Smoker Family History Family History Father Heart disease HENRY (obstructive sleep apnea) Family history of breast cancer Mother Asthma Emphysema, unspecified Bronchitis Smoker Alcoholism Bone marrow disease Maternal Grandmother Diabetes Surgical History Surgical History History of esophagogastroduodenoscopy (EGD) History of open reduction and internal fixation (ORIF) procedure History of pubovaginal sling History of umbilical hernia repair Hx of section Hx of cholecystectomy Social History Social History Household Members: Unknown / Unable to assess Housing: Unknown / Unable to assess Do you presently have visiting nurse or other home services: No Unable to assess alcohol history related to: Unknown Alcohol intake: unknown Smoking Status: Unknown if ever smoked Tobacco Type: Cigarette Packs Per Day: 1 Cigarettes Per Day: 20.0 Years Smoked: 35 Second Hand Smoke Exposure: No Use of substances other than those prescribed or required for medical reasons: Yes Substance Use Type: Crack/Cocaine Last Used Substance: Just Prior to Admission Currently Displaying Signs/Symptoms of Drug Intoxication Withdrawal: No Advance Directives: Yes Advance Directives on File: Yes Advance Directives Date on File: 04/15/20 Do you have thoughts of harming others: None Do you have a plan to hurt others: No Plan Recently lost weight without trying: Unsure How much weight loss: Unsure Nutrition Risks: On aspiration precautions Patient : No : No service: No Current occupational status: unemployed 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 [employer] Allergies Allergy/AdvReac Type Severity Reaction Status Date / Time doxycycline Allergy Severe Swelling Verified 10/27/20 12:49 varenicline [From CHANTIX] Allergy Severe ANAPHYLAXIS Verified 10/27/20 12:49 azithromycin Allergy Mild Rash Verified 10/27/20 12:49 cetirizine Allergy Mild Rash Verified 10/27/20 12:49 famotidine Allergy Mild Rash Verified 10/27/20 12:49 linaclotide [Linzess] Allergy Mild Rash Verified 10/27/20 12:49 barium sulfate Allergy Unknown angioedema Verified 10/27/20 12:49 Active Medications: Current Medications Generic Name Dose Route Start Last Admin Trade Name Freq PRN Reason Stop Dose Admin Propofol 1,000 mg in 100 mls @ 0 mls/hr 11/03/20 22:00 Diprivan IVCONT .Q0M [facility] Protocol Per Protocol Home Medications Medication Instructions Recorded Confirmed Last Taken Type Stiolto Respimat 2 puff INHALATION DAILY 04/12/20 11/04/20 Unknown History baclofen 1 tab PO DAILY PRN 11/04/20 11/04/20 Unknown History bupropion HCl 1 tab PO QAM 11/04/20 11/04/20 Unknown History cetirizine 1 tab PO DAILY 11/04/20 11/04/20 Unknown History dicyclomine 20 mg PO QID PRN 11/04/20 11/04/20 Unknown History losartan 1 tab PO DAILY 11/04/20 11/04/20 Unknown History lubiprostone 1 cap PO BID 11/04/20 11/04/20 Unknown History Physical Exam Vital Signs: Vital Signs: Last Vital Signs Temp 97.0 F 11/03/20 20:20 Pulse 99 11/03/20 20:20 Resp 17 11/03/20 20:20 BP 154/75 H 11/03/20 20:20 Pulse Ox 94 11/03/20 19:49 Body Mass Index 33.0 Const: General: patient obtunded Nutritional Appearance: obese Orientati on/consciousness: patient obtunded Limitations: altered mental status HENMT: Head: Yes normal to inspection, Yes No palpable skull fracture present, Yes normocephalic, Yes atraumatic, No Lyons's sign and No raccoon eyes General nose exam: Normal external nose present Face and sinus: Yes normal facial exam Teeth and gingiva: dentures Eyes: Pupils: Pupil size comments bilaterally 3 Neck: Neck: Yes normal visual inspection Resp: Other: on BiPAP Auscultation: rhonchi lower bilaterally Cardio: Rate: regular rate Rhythm: regular rhythm Heart sounds: normal S1 and S2 GI: Inspection: Yes obesity Palpation (GI): Soft to palpation and nontender Skin: Other: mottled bilateral UE and LE Neuro: General: patient obtunded Extrem: General: Yes no pedal edema Results Labs CBC and Chem 7: 11/04/20 05:34 11/04/20 05:34 Labs: Laboratory Results - last 24 hr 11/03/20 11/03/20 11/03/20 18:53 19:01 19:01 MCV 83.2 MCH 25.2 L MCHC 30.4 L RDW 16.8 H Plt Count 432 H D MPV 9.4 Immature Gran % (Auto) 0.2 Neut % (Auto) 62.0 Lymph % (Auto) 29.6 Brewster % (Auto) 6.6 Eos % (Auto) 1.4 Baso % (Auto) 0.2 Lymph # (Auto) 3.1 [place] # (Auto) 0.7 Eos # (Auto) 0.1 Baso # (Auto) 0.0 Abs Immat Gran (auto) 0.02 Absolute Neuts (auto) 6.4 Absolute Nucleated RBC 0.000 Nucleated RBC % (auto) 0.0 PT 12.7 INR 1.1 APTT 38.2 H O2 Saturation ABG pH at Pt Temp ABG pH (Temp Correct) ABG pCO2 at Pt Temp ABG pCO2 (Temp Corrct ABG pO2 at Pt Temp ABG pO2 (Temp Correct ABG HCO3 ABG Base Excess (Actual) VBG pH VBG pCO2 VBG pO2 VBG HCO3 VBG O2 Saturation VBG Base Excess Anion Gap Estim Creat Clear Calc Estimated GFR POC Glucose 113 Random Glucose Lactic Acid Calcium Magnesium Total Bilirubin AST ALT Alkaline Phosphatase Troponin I High Sens B-Natriuretic Peptide Total Protein Albumin Urine Color Urine Appearance Urine pH Ur Specific [place] Urine Protein Urine Glucose (UA) Urine Ketones Urine Blood Urine Nitrite Ur Leukocyte Esterase Urine Opiates Screen Ur Barbiturates Screen Ur Phencyclidine Scrn Ur Amphetamines Screen U Benzodiazepines Scrn Urine Cocaine Screen U Marijuana (THC) Screen Ethyl Alcohol COVID-19 (LAMBERT) COVID-19 Clin Com 11/03/20 11/03/20 11/03/20 19:01 19:01 19:01 MCV MCH MCHC RDW Plt Count MPV Immature Gran % (Auto) Neut % (Auto) Lymph % (Auto) [place] % (Auto) Eos % (Auto) Baso % (Auto) Lymph # (Auto) [place] # (Auto) Eos # (Auto) Baso # (Auto) Abs Immat Gran (auto) Absolute Neuts (auto) Absolute Nucleated RBC Nucleated RBC % (auto) PT INR APTT O2 Saturation ABG pH at Pt Temp ABG pH (Temp Correct) ABG pCO2 at Pt Temp ABG pCO2 (Temp Corrct ABG pO2 at Pt Temp ABG pO2 (Temp Correct ABG HCO3 ABG Base Excess (Actual) VBG pH VBG pCO2 VBG pO2 VBG HCO3 VBG O2 Saturation VBG Base Excess Anion Gap 14 Estim Creat Clear Calc 53.7 Estimated GFR 45 POC Glucose Random Glucose 114 Lactic Acid Calcium 9.2 D Magnesium Total Bilirubin 0.3 AST 11 D ALT 11 Alkaline Phosphatase 102 Troponin I High Sens 7.2 B-Natriuretic Peptide 27 Total Protein 6.6 Albumin 4.0 Urine Color Urine Appearance Urine pH Ur Specific [place] Urine Protein Urine Glucose (UA) Urine Ketones Urine Blood Urine Nitrite Ur Leukocyte Esterase Urine Opiates Screen Ur Barbiturates Screen Ur Phencyclidine Scrn Ur Amphetamines Screen U Benzodiazepines Scrn Urine Cocaine Screen U Marijuana (THC) Screen Ethyl Alcohol COVID-19 (LAMBERT) COVID-19 [facility] 11/03/20 11/03/20 11/03/20 19:01 19:01 19:01 MCV MCH MCHC RDW Plt Count MPV Immature Gran % (Auto) Neut % (Auto) Lymph % (Auto) [place] % (Auto) Eos % (Auto) Baso % (Auto) Lymph # (Auto) [place] # (Auto) Eos # (Auto) Baso # (Auto) Abs Immat Gran (auto) Absolute Neuts (auto) Absolute Nucleated RBC Nucleated RBC % (auto) PT INR APTT O2 Saturation ABG pH at Pt Temp ABG pH (Temp Correct) ABG pCO2 at Pt Temp ABG pCO2 (Temp Corrct ABG pO2 at Pt Temp ABG pO2 (Temp Correct ABG HCO3 ABG Base Excess (Actual) VBG pH VBG pCO2 VBG pO2 VBG HCO3 VBG O2 Saturation VBG Base Excess Anion Gap Estim Creat Clear Calc Estimated GFR POC Glucose Random Glucose Lactic Acid 1.1 Calcium Magnesium 1.8 Total Bilirubin AST ALT Alkaline Phosphatase Troponin I High Sens B-Natriuretic Peptide Total Protein Albumin Urine Color Urine Appearance Urine pH Ur Specific [place] Urine Protein Urine Glucose (UA) Urine Ketones Urine Blood Urine Nitrite Ur Leukocyte Esterase Urine Opiates Screen Ur Barbiturates Screen Ur Phencyclidine Scrn Ur Amphetamines Screen U Benzodiazepines Scrn Urine Cocaine Screen U Marijuana (THC) Screen Ethyl Alcohol < 10 COVID-19 (LAMBERT) COVID-19 [employer] Com 11/03/20 11/03/20 11/03/20 19:06 19:06 19:06 MCV MCH MCHC RDW Plt Count MPV Immature Gran % (Auto) Neut % (Auto) Lymph % (Auto) [place] % (Auto) Eos % (Auto) Baso % (Auto) Lymph # (Auto) [place] # (Auto) Eos # (Auto) Baso # (Auto) Abs Immat Gran (auto) Absolute Neuts (auto) Absolute Nucleated RBC Nucleated RBC % (auto) PT INR APTT O2 Saturation ABG pH at Pt Temp ABG pH (Temp Correct) ABG pCO2 at Pt Temp ABG pCO2 (Temp Corrct ABG pO2 at Pt Temp ABG pO2 (Temp Correct ABG HCO3 ABG Base Excess (Actual) VBG pH VBG pCO2 VBG pO2 VBG HCO3 VBG O2 Saturation VBG Base Excess Anion Gap Estim Creat Clear Calc Estimated GFR POC Glucose Random Glucose Lactic Acid Calcium Magnesium Total Bilirubin AST ALT Alkaline Phosphatase Troponin I High Sens B-Natriuretic Peptide Total Protein Albumin Urine Color YELLOW Urine Appearance CLEAR Urine pH 5.5 Ur Specific [place] 1.010 Urine Protein NEG Urine Glucose (UA) NEG Urine Ketones NEG Urine Blood NEG Urine Nitrite NEG Ur Leukocyte Esterase NEG Urine Opiates Screen Not Detected Ur Barbiturates Screen Not Detected Ur Phencyclidine Scrn Not Detected Ur Amphetamines Screen Not Detected U Benzodiazepines Scrn Not Detected Urine Cocaine Screen POSITIVE H U Marijuana (THC) Screen Not Detected Ethyl Alcohol COVID-19 (LAMBERT) Negative COVID-19 Clin Com See Note 11/03/20 11/03/20 19:06 21:28 MCV MCH MCHC RDW Plt Count MPV Immature Gran % (Auto) Neut % (Auto) Lymph % (Auto) [place] % (Auto) Eos % (Auto) Baso % (Auto) Lymph # (Auto) [place] # (Auto) Eos # (Auto) Baso # (Auto) Abs Immat Gran (auto) Absolute Neuts (auto) Absolute Nucleated RBC Nucleated RBC % (auto) PT INR APTT O2 Saturation 94.0 ABG pH at Pt Temp 7.15 L* ABG pH (Temp Correct) 7.16 L* ABG pCO2 at Pt Temp 90 H* ABG pCO2 (Temp Corrct 87 H* ABG pO2 at Pt Temp 92 ABG pO2 (Temp Correct 87 ABG HCO3 31 H ABG Base Excess (Actual) 0.0 VBG pH 7.27 L VBG pCO2 66 VBG pO2 38 VBG HCO3 31 H VBG O2 Saturation 61.0 VBG Base Excess 2.5 Anion Gap Estim Creat Clear Calc Estimated GFR POC Glucose Random Glucose Lactic Acid Calcium Magnesium Total Bilirubin AST ALT Alkaline Phosphatase Troponin I High Sens B-Natriuretic Peptide Total Protein Albumin Urine Color Urine Appearance Urine pH Ur Specific [place] Urine Protein Urine Glucose (UA) Urine Ketones Urine Blood Urine Nitrite Ur Leukocyte Esterase Urine Opiates Screen Ur Barbiturates Screen Ur Phencyclidine Scrn Ur Amphetamines Screen U Benzodiazepines Scrn Urine Cocaine Screen U Marijuana (THC) Screen Ethyl Alcohol COVID-19 (LAMBERT) COVID-19 Clin Com Imaging Radiologist's Impressions: Impressions Chest X-Ray 11/03/20 18:54 IMPRESSION: Minimal basilar markings likely due to atelectasis. Head CT 11/03/20 18:57 IMPRESSION: No acute intracranial pathology. No evidence of intracranial mass, hemorrhage or major vascular territory infarction. Comment: [address] [id number] Scan Report Signed Patient: Marika Scott LMR#: [id number]: [id number]:[id number]/Sex: 50 / FADM Date: 11/03/20Loc: [id number] Dr: Estela Kc PA-C Ordering Physician: Ok Peña MD Date of Service: 11/03/20 Procedure(s): CT angio chest PE protocol Accession Number(s): [id number] cc: Ok Peña MD~ EXAMINATION: CT ANGIOGRAM OF THE CHEST WITH AND WITHOUT CONTRAST (CT PULMONARY ANGIOGRAM FOR PE) CLINICAL INFORMATION: Reason for Exam Acute hypoxia COMPARISON: Chest x-ray 30 minutes earlier and CTA chest 10/04/2020 TECHNIQUE: Prior to contrast administration, noncontrast localization images were obtained. Subsequently, multidetector volumetric imaging was performed from the thoracic inlet to below the diaphragms following the administration of 65 mL Omnipaque 350 intravenous contrast. No contrast reaction reported Sagittal, coronal, and MIP oblique sagittal reformatted images were obtained on the CT workstation, uploaded to PACS, and reviewed. Today's examination is limited secondary to respiratory motion artifact. This CT examination was performed using dose optimization techniques as appropriate, variously including the following: *Automated exposure control *Adjustment of mA and/or kV according to patient size (this includes techniques or standardized protocols for targeted exams where dose is matched to indication/reason for exam; i.e. extremities or head) *Use of iterative reconstruction technique Total exam dose-length product 529 mGy-cm FINDINGS: Lumbar is normal in size. Coronary artery calcifications are present. No pericardial effusion. No pulmonary arterial filling defect to suggest pulmonary embolus. Normal caliber abdominal aorta. No gross mediastinal lymphadenopathy. The lungs are adequately aerated. Mild patchy airspace disease is again noted which appears relatively similar prominence. No pneumothorax. No pleural effusion. No large pulmonary mass. Visualized portion of the upper abdomen demonstrate an enteric tube which terminates within the stomach. There is some mild nodularity of the adrenal glands noted. Moderate diffuse degenerative changes of the spine. Old healed left-sided rib fractures. Endotracheal tube in expected position. CT/CT angio chest PE protocol IMPRESSION: -No pulmonary embolus. -Relatively stable prominence of patchy bilateral airspace disease. 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 (2) Encephalopathy acute: Status: Acute Will get ammonia, TSH, cortisol, B12, folate, repeat trop and VBG. P atient likely aspirated during this time, was given 1 dose antibiotics in ED, will continue in the morning. (3) Diabetes mellitus: Qualifiers: Diabetes mellitus complication detail: with polyneuropathy Diabetes mellitus complication status: with neurologic complications Diabetes mellitus fpc insulin use: without fpc use Diabetes mellitus type: type 2 Qualified Code(s): E11.42 - Type 2 diabetes mellitus with diabetic polyneuropathy Status: Acute pt on glipizide and dulaglutide (4) COPD (chronic obstructive pulmonary disease): Qualifiers: COPD type: unspecified COPD Qualified Code(s): J44.9 - Chronic obstructive pulmonary disease, unspecified Status: Acute (5) GERD (gastroesophageal reflux disease): Qualifiers: Esophagitis presence: esophagitis presence not specified Qualified Code(s): K21.9 - Gastro-esophageal reflux disease without esophagitis Status: Acute Protonix (6) HENRY (obstructive sleep apnea): Status: Acute (7) Cocaine abuse: Status: Acute
[2020-11-03] MEDS: iohexoL 350 MG/ML 100 ML INFUS..BTL 65 ML IV (23:08)
--- NOTE | 2020-11-03 23:25 | PC.NURSE ---
pt tolerated CT and transfer to ICU well. no need for sedation, sa O2 remained around 98%, report given at bedside to Jess FLORES.
[2020-11-03] MEDS: propofoL 1,000 MG/100 ML VIAL 10.14 MG IVCONT (23:35)
[2020-11-03 23:48] LABS: VBG Base Excess 0.2 mmol/L; VBG HCO3 27 mmol/L (22-26); VBG pCO2 53 mmHg; VBG pH 7.31 (7.32-7.43); VBG pO2 43 mmHg
[2020-11-04] VITALS (33 sets, daily range): BP systolic 77–144; BP diastolic 46–113; PULSE 89–107; RESP 15–31; TEMP 36.6–38.4; O2SAT 91–100; BMI 33.7
[2020-11-04] LABS: Ammonia 29 umol/L (13-55)
[2020-11-04 00:05] LABS: Phosphorus 4.9 mg/dL (2.7-4.5)
[2020-11-04] MEDS: Midazolam HCl/NS 50 MG/50 ML PLAST..BAG IVCONT (00:06)
[2020-11-04] MEDS: Piperacillin Sodium/Tazobactam 3.375 GM in 0.9 % Sodium Chloride 50 ML IV (00:10)
[2020-11-04 00:13] LABS: Troponin-I High Sensitivity 8.5 ng/L (<3.5-17.0)
[2020-11-04 00:24] LABS: Venous Blood Gas Refer to POC result
[2020-11-04 00:27] LABS: TSH reflex Free T4 0.55 uIU/mL (0.32-4.0)
[2020-11-04 00:42] LABS: Vitamin B12 422 pg/mL (200-900)
--- NOTE | 2020-11-04 04:56 | PC.NURSE ---
Patient arrived to ICU from the ED at 2305. Patient was moved from stretcher to bed, placed on monitoring and evaluation advisor and ventilator. Patient lethargic and minimally responsive; positive cough/gag and PERRL. Patient with copious amount of clear think oral secretions. Upon suctioning oral secretions patient more agitated and restless. Patient reaching for ET tube and aggressively shaking her head. Propofol was started at this time. After PA placed order for versed, versed was hung and propofol was tirated down and turned off. Once again with some break through from sedation and reaching for ETT. Patient educated and redirected. Propofol drip was restarted and after a short period levophed was initiated. Please see EMAR for titrations.
[2020-11-04 05:38] LABS: MANUAL DIFF FLAG NO
[2020-11-04 05:42] LABS: VBG Base Excess 3.8 mmol/L; VBG HCO3 26 mmol/L (22-26); VBG pCO2 31 mmHg; VBG pH 7.52 (7.32-7.43); VBG pO2 39 mmHg
[2020-11-04 05:43] LABS: Venous Blood Gas Refer to POC result
[2020-11-04] MEDS: Pantoprazole Sodium 40 MG/10 ML VIAL IVPUSH (05:49)
[2020-11-04 05:55] LABS: Basophils Percent Auto 0.2 % (0-2); Eosinophils Absolute Auto 0.1 X10*3/uL (0.0-0.4); Eosinophils Percent Auto 0.7 % (0-4); Hematocrit 36.6 % (37-47); Hemoglobin 11.4 g/dl (12.0-16.0); Imm Gran Abs Auto 0.04 X10*3/uL (0.00-0.03); Imm Gran Pct Auto 0.3 % (0.0-0.4); Lymphocytes Absolute Auto 3.3 X10*3/uL (1.2-4.9); Lymphocytes Percent Auto 26.3 % (20-40); Mean Corpuscular HGB Conc 31.1 g/dl (31.0-35.0); Mean Corpuscular Hemoglobin 25.2 pg (27.0-33.0); Mean Platelet Volume 9.5 fL (9.4-12.3); Monocytes Absolute Auto 0.8 X10*3/uL (0.1-1.2); Monocytes Percent Auto 6.3 % (2-11); Neutrophils Absolute Auto 8.4 X10*3/uL (2.0-8.3); Neutrophils Percent Auto 66.2 % (45-73); Platelet Count 428 X10*3/uL (160-400); Red Blood Count 4.52 X10*6/uL (4.20-5.50); Red Cell Distribution Width 16.9 % (11.0-16.0); White Blood Count 12.7 X10*3/uL (4.8-10.8)
[2020-11-04 06:04] LABS: Alanine Aminotransferase 10 U/L (0-31); Albumin Level 3.4 g/dL (3.5-5.0); Alkaline Phosphatase 87 U/L (39-117); Aspartate Amino Transferase 9 U/L (5-31); Bilirubin Direct < 0.2 mg/dL (0.0-0.5); Bilirubin Total < 0.2 mg/dL (0.0-1.0); Total Protein 5.6 g/dL (6.5-8.0)
[2020-11-04 06:05] LABS: Anion Gap 16 (12-20); Blood Urea Nitrogen 13 mg/dL (9-16); C Reactive Protein 1.05 mg/dL (< or = 0.50); Calcium 8.6 mg/dL (8.4-10.2); Carbon Dioxide 25 mmol/L (22-29); Chloride 106 mmol/L (96-108); Creatinine Clr Calc Pharmacy 72.6; Estimated Glomerular Filt Rate > 60; Glucose Random 150 mg/dL (60-115); Magnesium 1.7 mg/dL (1.6-2.6); Phosphorus 3.2 mg/dL (2.7-4.5); Potassium 3.6 mmol/L (3.3-5.1); Sodium 143 mmol/L (135-145)
--- NOTE | 2020-11-04 06:26 | W.PM.CCHP ---
Procedures Central Line Placement Right IJ: Central Line Comments: placed 11/03/2020 10pm Consent for Procedure: Emergent-no informed consent obtained Time out performed: Yes Sterile Technique Used: Yes Patient placed on monitor/pulse ox: Yes MD prep: mask, gown and gloves Central line prep: Chlorhexidine scrub and sterile drapes applied Local anesthesia used: other anesthetic Ultrasound used for placement: Yes Central line lumen inserted: triple Post procedure: sutured in place, good blood return, all ports aspirated, flushed, capped and sterile dressing applied Post procedure x-ray: tip of catheter in good position and no pneumothorax seen Patient tolerated procedure: well and no complications Complications: none
[2020-11-04 06:29] LABS: INTERNATIONAL NORM RATIO 1.1 (0.9-1.1); Prothrombin Time 13.5 SEC (10.8-13.0)
[2020-11-04 06:32] LABS: Partial Thromboplastin Time 35.6 SEC (24.1-38.0)
[2020-11-04] MEDS: levoFLOXacin/D5W 750 MG/150 ML PIGGYBACK 100 MG IV (06:40)
[2020-11-04] MEDS: Piperacillin Sodium/Tazobactam 4.5 GM in 0.9 % Sodium Chloride 100 ML IV ×3 (06:45→19:22)
--- NOTE | 2020-11-04 07:37 | PM.CCPN ---
Subjective Subjective Date of Service: 11/04/20 Interval History: 50-year-old diabetic hypertensive with obstructive sleep apnea 1 month status post COVID-19 respiratory infection but not apparently pneumonitis and also a known chronic cocaine abuser came in with altered mental status agitated delirium requiring on entry 2 mg of IM Ativan in the emergency room and she remained obtunded developed acute on chronic hypercarbic and hypoxic respiratory failure requiring intubation and was transferred to the ICU last night No other apparent metabolic issues were noted she just has a mild stage II renal failure I do not know if this is a acute or chronic or combination her initial hypercarbia with with the acute respiratory acidosis her pCO2 was as high as 90 currently on the ventilator she is down to 31 so I reduced her respiratory rate from 20/4 down to 20 a little bit less than 20% Ciara reduction of she looks like she chronically lives at a pCO2 of approximately 50 or 50-55 and she does have home CPAP with she is not compliant with and was found on the couch unresponsive but probably encephalopathic in a by relatives Bedside echo demonstrates that right ventricular diameter is normal and there is no primary valve or pericardial disease but left ventricle there appears to be some area of dyssynergy involving the apical portion of the interventricular septum and her EKG shows normal sinus rhythm with right axis and clockwise rotation which could be on the basis of pulmonary hypertension Central line placed in the superior vena cava reading at about 6 and her air inferior vena cava is normal diameter with normal fluctuation probably indicating relative euvolemia Physical Exam Vital Signs: Vital Signs: Last Vital Signs Temp 100.8 F H 11/04/20 07:00 Pulse 94 11/04/20 07:00 Resp 20 11/04/20 07:00 BP 117/66 11/04/20 07:00 Pulse Ox 96 11/04/20 07:00 Body Mass Index 34.1 Const: Other: Sedated and intubated Bedside echo with approximate ejection fraction between 50 and 55% with possible apical dyssynergy and we will await a definitive echo possibly with contrast No adventitious sounds over lungs Abdomen obese but soft nondistended good bowel sounds no organomegaly Mild 1+ bilateral pretibial edema CT scan of the chest shows some modest bilateral nodular infiltrate and and basilar left greater than right tree in bud which could be related to some aspiration otherwise just mild mosaic perfusion pattern which could indicate some degree of air trapping and clearly no evidence of embolic or thrombotic issue Objective Data Labs CBC & Chem 7: 11/04/20 05:34 11/04/20 05:34 Labs: Laboratory Results - last 24 hr 11/03/20 11/03/20 11/03/20 18:53 19:01 19:01 WBC 10.3 RBC 5.11 Hgb 12.9 Hct 42.5 MCV 83.2 MCH 25.2 L MCHC 30.4 L RDW 16.8 H Plt Count 432 H D MPV 9.4 Immature Gran % (Auto) 0.2 Neut % (Auto) 62.0 Lymph % (Auto) 29.6 [place] % (Auto) 6.6 Eos % (Auto) 1.4 Baso % (Auto) 0.2 Lymph # (Auto) 3.1 [place] # (Auto) 0.7 Eos # (Auto) 0.1 Baso # (Auto) 0.0 Abs Immat Gran (auto) 0.02 Absolute Neuts (auto) 6.4 Absolute Nucleated RBC 0.000 Nucleated RBC % (auto) 0.0 PT 12.7 INR 1.1 APTT 38.2 H O2 Saturation ABG pH at Pt Temp ABG pH (Temp Correct) ABG pCO2 at Pt Temp ABG pCO2 (Temp Corrct ABG pO2 at Pt Temp ABG pO2 (Temp Correct ABG HCO3 ABG Base Excess (Actual) VBG pH VBG pCO2 VBG pO2 VBG HCO3 VBG O2 Saturation VBG Base Excess Sodium Potassium Chloride Carbon Dioxide Anion Gap BUN Creatinine Estim Creat Clear Calc Estimated GFR POC Glucose 113 Random Glucose Lactic Acid Calcium Phosphorus Magnesium Total Bilirubin Direct Bilirubin AST ALT Alkaline Phosphatase Ammonia Troponin I High Sens C-Reactive Protein B-Natriuretic Peptide Total Protein Albumin Vitamin B12 Folate TSH Urine Color Urine Appearance Urine pH Ur Specific [place] Urine Protein Urine Glucose (UA) Urine Ketones Urine Blood Urine Nitrite Ur Leukocyte Esterase Urine Opiates Screen Ur Barbiturates Screen Ur Phencyclidine Scrn Ur Amphetamines Screen U Benzodiazepines Scrn Urine Cocaine Screen U Marijuana (THC) Screen Ethyl Alcohol COVID-19 ([facility]) COVID-19 Clin Com 11/03/20 11/03/20 11/03/20 19:01 19:01 19:01 WBC RBC Hgb Hct MCV MCH MCHC RDW Plt Count MPV Immature Gran % (Auto) Neut % (Auto) Lymph % (Auto) [place] % (Auto) Eos % (Auto) Baso % (Auto) Lymph # (Auto) [place] # (Auto) Eos # (Auto) Baso # (Auto) Abs Immat Gran (auto) Absolute Neuts (auto) Absolute Nucleated RBC Nucleated RBC % (auto) PT INR APTT O2 Saturation ABG pH at Pt Temp ABG pH (Temp Correct) ABG pCO2 at Pt Temp ABG pCO2 (Temp Corrct ABG pO2 at Pt Temp ABG pO2 (Temp Correct ABG HCO3 ABG Base Excess (Actual) VBG pH VBG pCO2 VBG pO2 VBG HCO3 VBG O2 Saturation VBG Base Excess Sodium 144 Potassium 4.2 Chloride 103 Carbon Dioxide 31 H Anion Gap 14 BUN 13 Creatinine 1.26 Estim Creat Clear Calc 53.7 Estimated GFR 45 POC Glucose Random Glucose 114 Lactic Acid Calcium 9.2 D Phosphorus Magnesium Total Bilirubin 0.3 Direct Bilirubin AST 11 D ALT 11 Alkaline Phosphatase 102 Ammonia Troponin I High Sens 7.2 C-Reactive Protein B-Natriuretic Peptide 27 Total Protein 6.6 Albumin 4.0 Vitamin B12 Folate TSH Urine Color Urine Appearance Urine pH Ur Specific [place] Urine Protein Urine Glucose (UA) Urine Ketones Urine Blood Urine Nitrite Ur Leukocyte Esterase Urine Opiates Screen Ur Barbiturates Screen Ur Phencyclidine Scrn Ur Amphetamines Screen U Benzodiazepines Scrn Urine Cocaine Screen U Marijuana (THC) Screen Ethyl Alcohol COVID-19 ([facility]) COVID-19 Clin Com 11/03/20 11/03/20 11/03/20 19:01 19:01 19:01 WBC RBC Hgb Hct MCV MCH MCHC RDW Plt Count MPV Immature Gran % (Auto) Neut % (Auto) Lymph % (Auto) [place] % (Auto) Eos % (Auto) Baso % (Auto) Lymph # (Auto) [place] # (Auto) Eos # (Auto) Baso # (Auto) Abs Immat Gran (auto) Absolute Neuts (auto) Absolute Nucleated RBC Nucleated RBC % (auto) PT INR APTT O2 Saturation ABG pH at Pt Temp ABG pH (Temp Correct) ABG pCO2 at Pt Temp ABG pCO2 (Temp Corrct ABG pO2 at Pt Temp ABG pO2 (Temp Correct ABG HCO3 ABG Base Excess (Actual) VBG pH VBG pCO2 VBG pO2 VBG HCO3 VBG O2 Saturation VBG Base Excess Sodium Potassium Chloride Carbon Dioxide Anion Gap BUN Creatinine Estim Creat Clear Calc Estimated GFR POC Glucose Random Glucose Lactic Acid 1.1 Calcium Phosphorus Magnesium 1.8 Total Bilirubin Direct Bilirubin AST ALT Alkaline Phosphatase Ammonia Troponin I High Sens C-Reactive Protein B-Natriuretic Peptide Total Protein Albumin Vitamin B12 Folate TSH Urine Color Urine Appearance Urine pH Ur Specific [place] Urine Protein Urine Glucose (UA) Urine Ketones Urine Blood Urine Nitrite Ur Leukocyte Esterase Urine Opiates Screen Ur Barbiturates Screen Ur Phencyclidine Scrn Ur Amphetamines Screen U Benzodiazepines Scrn Urine Cocaine Screen U Marijuana (THC) Screen Ethyl Alcohol < 10 COVID-19 ([facility]) COVID-19 [facility] 11/03/20 11/03/20 11/03/20 19:06 19:06 19:06 WBC RBC Hgb Hct MCV MCH MCHC RDW Plt Count MPV Immature Gran % (Auto) Neut % (Auto) Lymph % (Auto) [place] % (Auto) Eos % (Auto) Baso % (Auto) Lymph # (Auto) [place] # (Auto) Eos # (Auto) Baso # (Auto) Abs Immat Gran (auto) Absolute Neuts (auto) Absolute Nucleated RBC Nucleated RBC % (auto) PT INR APTT O2 Saturation ABG pH at Pt Temp ABG pH (Temp Correct) ABG pCO2 at Pt Temp ABG pCO2 (Temp Corrct ABG pO2 at Pt Temp ABG pO2 (Temp Correct ABG HCO3 ABG Base Excess (Actual) VBG pH VBG pCO2 VBG pO2 VBG HCO3 VBG O2 Saturation VBG Base Excess Sodium Potassium Chloride Carbon Dioxide Anion Gap BUN Creatinine Estim Creat Clear Calc Estimated GFR POC Glucose Random Glucose Lactic Acid Calcium Phosphorus Magnesium Total Bilirubin Direct Bilirubin AST ALT Alkaline Phosphatase Ammonia Troponin I High Sens C-Reactive Protein B-Natriuretic Peptide Total Protein Albumin Vitamin B12 Folate TSH Urine Color YELLOW Urine Appearance CLEAR Urine pH 5.5 Ur Specific [place] 1.010 Urine Protein NEG Urine Glucose (UA) NEG Urine Ketones NEG Urine Blood NEG Urine Nitrite NEG Ur Leukocyte Esterase NEG Urine Opiates Screen Not Detected Ur Barbiturates Screen Not Detected Ur Phencyclidine Scrn Not Detected Ur Amphetamines Screen Not Detected U Benzodiazepines Scrn Not Detected Urine Cocaine Screen POSITIVE H U Marijuana (THC) Screen Not Detected Ethyl Alcohol COVID-19 ([facility]) Negative COVID-19 [facility] See Note 11/03/20 11/03/20 11/03/20 19:06 21:28 23:35 WBC RBC Hgb Hct MCV MCH MCHC RDW Plt Count MPV Immature Gran % (Auto) Neut % (Auto) Lymph % (Auto) [place] % (Auto) Eos % (Auto) Baso % (Auto) Lymph # (Auto) [place] # (Auto) Eos # (Auto) Baso # (Auto) Abs Immat Gran (auto) Absolute Neuts (auto) Absolute Nucleated RBC Nucleated RBC % (auto) PT INR APTT O2 Saturation 94.0 ABG pH at Pt Temp 7.15 L* ABG pH (Temp Correct) 7.16 L* ABG pCO2 at Pt Temp 90 H* ABG pCO2 (Temp Corrct 87 H* ABG pO2 at Pt Temp 92 ABG pO2 (Temp Correct 87 ABG HCO3 31 H ABG Base Excess (Actual) 0.0 VBG pH 7.27 L VBG pCO2 66 VBG pO2 38 VBG HCO3 31 H VBG O2 Saturation 61.0 VBG Base Excess 2.5 Sodium Potassium Chloride Carbon Dioxide Anion Gap BUN Creatinine Estim Creat Clear Calc Estimated GFR POC Glucose Random Glucose Lactic Acid Calcium Phosphorus 4.9 H Magnesium Total Bilirubin Direct Bilirubin AST ALT Alkaline Phosphatase Ammonia Troponin I High Sens C-Reactive Protein B-Natriuretic Peptide Total Protein Albumin Vitamin B12 Folate TSH 0.55 Urine Color Urine Appearance Urine pH Ur Specific [place] Urine Protein Urine Glucose (UA) Urine Ketones Urine Blood Urine Nitrite Ur Leukocyte Esterase Urine Opiates Screen Ur Barbiturates Screen Ur Phencyclidine Scrn Ur Amphetamines Screen U Benzodiazepines Scrn Urine Cocaine Screen U Marijuana (THC) Screen Ethyl Alcohol COVID-19 ([facility]) COVID-19 Clin Com 11/03/20 11/03/20 11/03/20 23:35 23:35 23:35 WBC RBC Hgb Hct MCV MCH MCHC RDW Plt Count MPV Immature Gran % (Auto) Neut % (Auto) Lymph % (Auto) [place] % (Auto) Eos % (Auto) Baso % (Auto) Lymph # (Auto) [place] # (Auto) Eos # (Auto) Baso # (Auto) Abs Immat Gran (auto) Absolute Neuts (auto) Absolute Nucleated RBC Nucleated RBC % (auto) PT INR APTT O2 Saturation ABG pH at Pt Temp ABG pH (Temp Correct) ABG pCO2 at Pt Temp ABG pCO2 (Temp Corrct ABG pO2 at Pt Temp ABG pO2 (Temp Correct ABG HCO3 ABG Base Excess (Actual) VBG pH VBG pCO2 VBG pO2 VBG HCO3 VBG O2 Saturation VBG Base Excess Sodium Potassium Chloride Carbon Dioxide Anion Gap BUN Creatinine Estim Creat Clear Calc Estimated GFR POC Glucose Random Glucose Lactic Acid Calcium Phosphorus Magnesium Total Bilirubin Direct Bilirubin AST ALT Alkaline Phosphatase Ammonia 29 Troponin I High Sens 8.5 C-Reactive Protein B-Natriuretic Peptide Total Protein Albumin Vitamin B12 422 Folate 10.0 TSH Urine Color Urine Appearance Urine pH Ur Specific [place] Urine Protein Urine Glucose (UA) Urine Ketones Urine Blood Urine Nitrite Ur Leukocyte Esterase Urine Opiates Screen Ur Barbiturates Screen Ur Phencyclidine Scrn Ur Amphetamines Screen U Benzodiazepines Scrn Urine Cocaine Screen U Marijuana (THC) Screen Ethyl Alcohol COVID-19 ([facility]) COVID-19 Clin Com 11/03/20 11/04/20 11/04/20 23:40 05:34 05:34 WBC 12.7 H RBC 4.52 Hgb 11.4 L Hct 36.6 L MCV 81.0 MCH 25.2 L MCHC 31.1 RDW 16.9 H Plt Count 428 H MPV 9.5 Immature Gran % (Auto) 0.3 Neut % (Auto) 66.2 Lymph % (Auto) 26.3 [place] % (Auto) 6.3 Eos % (Auto) 0.7 Baso % (Auto) 0.2 Lymph # (Auto) 3.3 [place] # (Auto) 0.8 Eos # (Auto) 0.1 Baso # (Auto) 0.0 Abs Immat Gran (auto) 0.04 H Absolute Neuts (auto) 8.4 H Absolute Nucleated RBC 0.000 Nucleated RBC % (auto) 0.0 PT 13.5 H INR 1.1 APTT 35.6 O2 Saturation ABG pH at Pt Temp ABG pH (Temp Correct) ABG pCO2 at Pt Temp ABG pCO2 (Temp Corrct ABG pO2 at Pt Temp ABG pO2 (Temp Correct ABG HCO3 ABG Base Excess (Actual) VBG pH 7.31 L VBG pCO2 53 VBG pO2 43 VBG HCO3 27 H VBG O2 Saturation 71.0 VBG Base Excess 0.2 Sodium Potassium Chloride Carbon Dioxide Anion Gap BUN Creatinine Estim Creat Clear Calc Estimated GFR POC Glucose Random Glucose Lactic Acid Calcium Phosphorus Magnesium Total Bilirubin Direct Bilirubin AST ALT Alkaline Phosphatase Ammonia Troponin I High Sens C-Reactive Protein B-Natriuretic Peptide Total Protein Albumin Vitamin B12 Folate TSH Urine Color Urine Appearance Urine pH Ur Specific [place] Urine Protein Urine Glucose (UA) Urine Ketones Urine Blood Urine Nitrite Ur Leukocyte Esterase Urine Opiates Screen Ur Barbiturates Screen Ur Phencyclidine Scrn Ur Amphetamines Screen U Benzodiazepines Scrn Urine Cocaine Screen U Marijuana (THC) Screen Ethyl Alcohol COVID-19 ([facility]) COVID-19 Clin Com 11/04/20 11/04/20 11/04/20 05:34 05:34 05:35 WBC RBC Hgb Hct MCV MCH MCHC RDW Plt Count MPV Immature Gran % (Auto) Neut % (Auto) Lymph % (Auto) [place] % (Auto) Eos % (Auto) Baso % (Auto) Lymph # (Auto) [place] # (Auto) Eos # (Auto) Baso # (Auto) Abs Immat Gran (auto) Absolute Neuts (auto) Absolute Nucleated RBC Nucleated RBC % (auto) PT INR APTT O2 Saturation ABG pH at Pt Temp ABG pH (Temp Correct) ABG pCO2 at Pt Temp ABG pCO2 (Temp Corrct ABG pO2 at Pt Temp ABG pO2 (Temp Correct ABG HCO3 ABG Base Excess (Actual) VBG pH 7.52 H VBG pCO2 31 VBG pO2 39 VBG HCO3 26 VBG O2 Saturation 75.0 VBG Base Excess 3.8 Sodium 143 Potassium 3.6 Chloride 106 Carbon Dioxide 25 Anion Gap 16 BUN 13 Creatinine 0.95 Estim Creat Clear Calc 72.6 Estimated GFR > 60 POC Glucose Random Glucose 150 H Lactic Acid Calcium 8.6 D Phosphorus 3.2 Magnesium 1.7 Total Bilirubin < 0.2 Direct Bilirubin < 0.2 AST 9 ALT 10 Alkaline Phosphatase 87 Ammonia Troponin I High Sens C-Reactive Protein 1.05 H B-Natriuretic Peptide Total Protein 5.6 L Albumin 3.4 L Vitamin B12 Folate TSH Urine Color Urine Appearance Urine pH Ur Specific [place] Urine Protein Urine Glucose (UA) Urine Ketones Urine Blood Urine Nitrite Ur Leukocyte Esterase Urine Opiates Screen Ur Barbiturates Screen Ur Phencyclidine Scrn Ur Amphetamines Screen U Benzodiazepines Scrn Urine Cocaine Screen U Marijuana (THC) Screen Ethyl Alcohol COVID-19 ([facility]) COVID-19 Clin Com Progress Note: A&P Assessment and plan (1) Cocaine abuse: Status: Acute (2) Encephalopathy acute: Status: Acute (3) Acute and chronic respiratory failure with hypercapnia: Status: Acute (4) Cocaine abuse: Status: Acute (5) GERD (gastroesophageal reflux disease): Status: Acute (6) Diabetes mellitus: Status: Acute (7) HENRY (obstructive sleep apnea): Status: Acute (8) COPD (chronic obstructive pulmonary disease): Status: Acute (9) COVID-19: Status: Acute (10) Respiratory failure with hypercapnia: Status: Acute (11) E coli bacteremia: Problem details: Patient possible urine versus abdominal source or obstruction Status: Acute (12) Bustos's esophagus: Status: Acute (13) Chronic idiopathic constipation: Status: Acute (14) Chronic renal failure, stage 2 (mild): Status: Acute Assessment and Plan: At this point she is on both a Versed drip as well as propofol and I will probably stop the propofol to assess cognitive function and if present hopefully a rapid weaning trial from the ventilator probably to a positive-pressure device and if not and delirium is still present will keep her intubated and reinstate the propofol
--- NOTE | 2020-11-04 09:33 | MHC.CDI.CONC ---
CDI Concurrent Query Service Date: 10/04/21 Documentation Clarification: Please clarify if you are treating a probable/suspected/likely or confirmed: Specifics to documentation: Toxic encephalopathy POA Metabolic encephalopathy Other, please specify or unknown Provider Response: Toxic Encephalopathy Other Diagnosis: Agree with inclusion of toxic encephalopathy based on cocaine PLEASE DO NOT DELETE/MODIFY EXISTING CONTENT Additional information is needed in order to code to the highest accuracy and appropriate Severity of Illness (SOI). Please clarify the information noted below in your progress notes and discharge summary. Risk Factors/Clinical Indicators/Treatments ED: Clincial impression: Acute metabolic encephalopathy. Altered mental status, confusion, agitated. Positive cocaine labs History of opiate use CDS: Brandi Lizama CCS, CDIS Contact Number: [phone]. [phone] Please Review the information above and exercise your independent professional judgment in responding to the query. If you concur, pleas document in the PROGRESS NOTES and DISCHARGE SUMMARY. If you do not agree with the query, please document in the query above. THIS QUERY IS PART OF THE PERMANENT MEDICAL RECORD
--- NOTE | 2020-11-04 09:53 | MHC.CLN ---
RE: CONSULT IF TF NEEDED; RECOMMEND PROMOTE AT MAX GOAL RATE 50CC/HR TO PROVIDE 1200KCALS (1468KCALS WITH SEDATION; 23KCALS/KG BASED ON CMW), 75G PROTEIN (1.2G/KG), 1007CC FREE WATER FROM FORMULA MONITOR TOLERANCE RESIDUAL AND LYTES SEE ALSO CLINICAL NUTRITION ASSESSMENT
[2020-11-04] MEDS: propofoL 1,000 MG/100 ML VIAL 10.14 MG IVCONT (10:20)
[2020-11-04] MEDS: Chlorhexidine Gluc Oral Rinse 15 ML MOUTHWASH BUCCAL ×2 (10:20→14:30)
--- NOTE | 2020-11-04 12:21 | MHC.CM.PN ---
Pt is presently intubated in ICU and unable to participate in assessment: Information obtained from EMR, ICU staff and pt's dtr, Jaja who is the pt's HCP and compensated [employer] Per Jaja, pt resides with her and has a PT-1 form for transportation, diabetic testing supplies, walker, cane, CPAP and nebulizer. Pt has a hx of declining VNA services d/t not allowing other people in her home Goals of d/c are for pt to return to home with [employer] services and outpt follow up. Jaja can transport pt to home. CM to follow for any changes in d/c plan
[2020-11-04 16:21] LABS: Glucose, Whole Blood 125 mg/dL (60-115)
--- NOTE | 2020-11-04 17:21 | PC.NURSE ---
S/E Temp 100.8 max; continued on Zosyn; BC & SC pending Extubated to RA at 1530; A&O x3, follows commands SR/ST w/ occasional PAC's Levophed titrated off Dressing R IJ TLC changed CVP 2-4; okay to discontinue per MD LS rhonchi to dim, moderate thin oral secretions VBG's 7.52/31/39/26 Patient refusing home CPap for nights - MD aware Abdomen soft, nontender; no BM Passed swallow eval - tolerating Diabetic diet well POC 125 - Humalog sliding scale ordered Ni removed per MD - patient due to void by 2330 Sutures to right wrist patent, no skin integrity concerns Patient bathed, up in recliner for dinner, asking to go home Air loss bed & prevlon pad in place Sister Lexy updated per patient request
[2020-11-04 20:20] LABS: Glucose, Whole Blood 142 mg/dL (60-115)
--- NOTE | 2020-11-04 21:28 | PC.NURSE ---
TLC in R IJ taken out. Pt toelrated well. Plan to transfer to [facility] [place] [phone], will call to give report.
--- NOTE | 2020-11-04 23:33 | PC.NURSE ---
late entry for 22:20 pt transferred from ICU via stretcher on RA. easily stood to get into bed. denies pain or sob. occas npc noted. vss. (see graphics). requesting sandwich and alice adry. assessment as follows a&ox4, nsr on monitor vss. pink warm & dry & intact except for R neck dressing (old tlc site) is cdi. lungs dim t.o. + bs4q abd soft/obese. up to bathroom to void 350ml. steady gait/independent. low fall risk. pedal pulses bilat. trace pedal edema. #18 Rac flushed/good blood return. lac wrapped/flushed good blood return up in recliner eating sandwich watching tv with no complaints. call ott in place & orient to room/care plan.
[2020-11-05] MEDS: Albuterol/Iprat 2.5/0.5MG 3 ML AMPUL.NEB INHALE ×2 (00:16→06:04)
[2020-11-05 00:18] VITALS: PULSE 90; O2SAT 94
[2020-11-05] MEDS: Gabapentin 600 MG TABLET PO ×2 (00:34→08:03)
[2020-11-05] MEDS: Acetaminophen 325 MG TABLET 650 MG PO (00:34)
[2020-11-05] MEDS: Piperacillin Sodium/Tazobactam 4.5 GM in 0.9 % Sodium Chloride 100 ML IV ×2 (00:43→06:40)
[2020-11-05] MEDS: Benzonatate 100 MG CAPSULE PO (02:21)
[2020-11-05 03:14] VITALS: BP 145/77; PULSE 100; RESP 20; TEMP 36.4; O2SAT 92
[2020-11-05 06:05] VITALS: PULSE 100; O2SAT 93
[2020-11-05] MEDS: Pantoprazole Sodium 40 MG/10 ML VIAL IVPUSH (06:37)
[2020-11-05 07:01] VITALS: BP 120/57; PULSE 85; RESP 18; TEMP 36.6; O2SAT 95
[2020-11-05 07:14] LABS: Glucose, Whole Blood 149 mg/dL (60-115)
[2020-11-05 08:00] VITALS: BP 120/57
--- NOTE | 2020-11-05 10:49 | MHC.CM.PN ---
PT WILL DC HOME TODAY WITH RESUMPTION OF [employer] [facility] TO TRANSPORT
[2020-11-05 11:23] LABS: Glucose, Whole Blood 202 mg/dL (60-115)
[2020-11-05] MEDS: Insulin Lispro 100 UNIT/ML 3 ML VIAL SUBCUT (11:30)
--- NOTE | 2020-11-05 11:37 | PM.DS ---
DS: Providers Provider Date of Service: 11/05/20 Date of admission: 11/03/20 22:58 Primary care physician: KATINA Lazcano DS: Diagnosis Discharge Diagnosis (1) Acute and chronic respiratory failure with hypercapnia: Status: Acute (2) Encephalopathy acute: Status: Acute (3) Diabetes mellitus: Status: Acute (4) COPD (chronic obstructive pulmonary disease): Status: Acute (5) GERD (gastroesophageal reflux disease): Status: Acute (6) HENRY (obstructive sleep apnea): Status: Acute (7) Cocaine abuse: Status: Acute DS: Medications Discharge Medications Home Medications: Home Medications Medication Instructions Recorded Confirmed Stiolto Respimat 2 puff INHALATION DAILY 04/12/20 11/04/20 baclofen 1 tab PO DAILY PRN 11/04/20 11/04/20 bupropion HCl 1 tab PO QAM 11/04/20 11/04/20 cetirizine 1 tab PO DAILY 11/04/20 11/04/20 dicyclomine 20 mg PO QID PRN 11/04/20 11/04/20 losartan 1 tab PO DAILY 11/04/20 11/04/20 lubiprostone 1 cap PO BID 11/04/20 11/04/20 Previous Rx's Medication Instructions Recorded dexlansoprazole 60 mg 60 mg PO DAILY #30 cap 07/14/20 capsule,biphase delayed release albuterol sulfate 90 mcg/actuation 2 puff INHALATION Q6H PRN 30 Days 08/08/20 aerosol inhaler #8.5 g alcohol swabs 1 pad TOPICAL DAILY #100 ea 09/07/20 blood sugar diagnostic #100 ea 09/07/20 lancets 28 gauge #100 ea 09/07/20 acetaminophen 650 mg 650 mg PO Q12H PRN #60 tab 09/21/20 tablet,extended release aspirin 81 mg tablet,delayed 81 mg PO DAILY 90 Days #90 tab 09/28/20 release atorvastatin 80 mg tablet 80 mg PO DAILY #30 tab 09/28/20 carisoprodol 350 mg tablet 350 mg PO ONCE PRN 30 Days #30 tab 09/28/20 dulaglutide 0.75 mg/0.5 mL 0.75 mg SUBCUT QWEEK 30 Days #2 ml 09/28/20 subcutaneous pen injector gabapentin 600 mg tablet 600 mg PO QID #120 tab 09/28/20 tizanidine 4 mg tablet 4 mg PO BID PRN 30 Days #60 tab 09/28/20 furosemide 20 mg tablet 20 mg PO BID #60 tab 11/01/20 glipizide 5 mg tablet 5 mg PO DAILY 30 Days #30 tab 11/03/20 DS: Summary Hospital Course Hospital Course: HPIChief Complaint: Altered mental status Pt is a 50yo feamle, current 20+ pack-year smoker, with underlying history of asthma / COPD overlap syndrome not on home O2, HENRY, cocaine use, hypertension, diabetes mellitus, congestive heart failure, depression who tested + for Covid on 10/04/20. She has been admitted several times for chronic hypoxic and hypercapnic respiratory failure. Pt's family called 911 and pt was BIBA after she woke up in her recliner confused and agitated. Family states she was her normal self earlier in the day. ER note states that upon arrival, patient was satting in the 80s and her pupils were 3 mm with no signs of a head injury. VS otherwise stable and WNL. Labs in the ER were notable for U tox positive cocaine, VBG 7.27/66/38/31/61/2.5 then ABG worsening after 2.5hrs BiPAP 7.16/87/87/31, trop 7.2, covid negative. Head and neck CT negative, CXR nothing acute. Due to worsening blood gases and patient's continued encephalopathy, patient was intubated in the ED. central line was also placed. Patient will be transferred to the ICU for monitoring. Hospital course Acute on chronic hypercarbic /hypoxic respiratory failure 50-year-old diabetic, hypertensive with obstructive sleep apnea, status post COVID-19 respiratory infection 1 month ago,also a known chronic cocaine abuser came in with altered mental status, agitation,delirium requiring on entry 2 mg of IM Ativan in the emergency room and she remained obtunded developed acute on chronic hypercarbic and hypoxic respiratory failure requiring intubation and was transferred to the ICU subsequently she got extubated now awake alert no confusion,UA unremarkable, CTA chest with stable bilateral airspace disease, patient feels that maybe cocaine was laced with some Other chemicals, she never had similar reaction in the past, her oxygenation is 93 94% on room air she is eager to be discharged home and refusing to talk with Addiction Team therefore will discharge patient home with strong recommendation to abstain from illicit drug use. Bedside echo showed no valvular disease and normal right ventricular systolic function. Acute encephalopathy as above resolved. Obstructive sleep apnea patient is noncompliant with CPAP therefore recommended strongly to use her CPAP Diabetes mellitus recommend to resume home medication Time Spent with Patient Time attestation: Total time spent providing and/or coordinating discharge services: Discharge coordination time: Greater than 30 minutes Physical Exam Vital Signs: Vital Signs: Last Vital Signs Temp 97.9 F 11/05/20 07:01 Pulse 85 11/05/20 07:01 Resp 18 11/05/20 07:01 BP 120/57 L 11/05/20 08:00 Pulse Ox 95 11/05/20 07:01 Body Mass Index 33.7 General resting comfortably in no acute distress. Neck supple no JVD. CVS regular rate rhythm, Respiratory lungs clear to auscultation, no respiratory distress, no wheeze, no rhonchi. Gastrointestinal abdomen soft, nontender, bowel sounds audible, no guarding , no rigidity. Extremities no edema. Neuro nonfocal , speech clear. Skin no rash DS: Data Data Completed and Pending Completed studies during hospitalization [Text1]: Procedures Assistance with Respiratory Ventilation, Less than 24 Consecutive Hours, Continuous Positive Airway Pressure (04/27/20) Labs on day of discharge: Laboratory Results - last 24 hr 11/04/20 11/04/20 11/04/20 05:34 16:13 20:16 POC Glucose 125 H 142 H Cortisol 16.9 11/05/20 11/05/20 07:10 11:09 POC Glucose 149 H 202 H Cortisol Preliminary micro results at discharge 11/04/20 00:58 Sputum Culture - Preliminary Sputum - Suctioned Normal so far. 11/03/20 19:09 Blood Culture - Preliminary Blood - Venous No growth after 24 hours. 11/03/20 19:01 Blood Culture - Preliminary Blood - Venous No growth after 24 hours. Discharge Plan Discharge Patient Disposition: Home, Self-Care Discharge Diagnosis: Acute on chronic hypercarbic resp failure acute encephalopathy Referrals: Joe Hale, [facility] [Primary Care Provider] - 1 Week Discharge Medications: Continued dexlansoprazole [Dexilant] 60 mg capsule,biphase delayed releas 60 mg PO DAILY Qty: 30 RF: 3 albuterol sulfate [ProAir HFA] 90 mcg/actuation HFA aerosol inhaler 2 puff inhalation Q6H PRN (Reason: shortness of breath or wheezing) 30 Days Qty: 8.5 RF: 4 (DME) FreeStyle Lite Strips Strip See Rx Instructions .ROUTE .MEDSUPPLY Qty: 100 RF: 1 (DME) lancets [FreeStyle Lancets] 28 gauge misc See Rx Instructions .ROUTE .MEDSUPPLY Qty: 100 RF: 1 alcohol swabs Pads, Medicated 1 pad topical DAILY Qty: 100 RF: 1 acetaminophen [Mapap Arthritis Pain] 650 mg tablet extended release 650 mg PO Q12H PRN (Reason: for pain) Qty: 60 RF: 2 carisoprodol 350 mg tablet 350 mg PO ONCE PRN (Reason: muscle pain) 30 Days Qty: 30 RF: 1 Trulicity 0.75 mg/0.5 mL pen injector 0.75 mg subcut QWEEK 30 Days Qty: 2 RF: 2 gabapentin 600 mg tablet 600 mg PO QID Qty: 120 RF: 2 tizanidine 4 mg tablet 4 mg PO BID PRN (Reason: muscle spasm) 30 Days Qty: 60 RF: 0 aspirin 81 mg tablet,delayed release (DR/EC) 81 mg PO DAILY 90 Days Qty: 90 RF: 0 atorvastatin 80 mg tablet 80 mg PO DAILY Qty: 30 RF: 3 furosemide 20 mg tablet 20 mg PO BID Qty: 60 RF: 3 glipizide 5 mg tablet 5 mg PO DAILY 30 Days Qty: 30 RF: 4 cetirizine 10 mg tablet 1 tab PO DAILY RF: 0 baclofen 20 mg tablet 1 tab PO DAILY PRN (Reason: muscle spasm) RF: 0 losartan 25 mg tablet 1 tab PO DAILY RF: 0 bupropion HCl 300 mg tablet extended release 24 hr 1 tab PO QAM RF: 0 lubiprostone 24 mcg capsule 1 cap PO BID RF: 0 dicyclomine 10 mg capsule 20 mg PO QID PRN (Reason: for cramps) RF: 0 Stiolto Respimat 2.5-2.5 mcg/actuation Mist 2 puff INHALATION DAILY RF: 0 Discontinued ibuprofen 800 mg tablet 800 mg PO BID PRN (Reason: for pain) Qty: 60 RF: 1 Discharge Orders: Discharge Order (Routine); Ordered 11/05/20 Ordered By: Tom Herr Diet: diabetic diet Activity on Discharge: As tolerated Stand Alone Forms: Patient Portal Discharge page Care Plan Goals: take all medications as prescribed abstain from illicit drug use/ Health Concerns: cocaine use and hypercarbic resp failure use cpap and avoid using cocaine Plan of Treatment: outpt follow up with pcp in 1 week Assessment: see dc summary
== END 2020-11-05 11:49 | disposition home or self-care (01) | DRG 52 ==
LOC: HO.ED 23:00 → HO.ICU 23:06 → HO.IMC 11-04 21:27
PROVIDERS: Admitting Provider Physician Assistant; Emergency Provider Internal Medicine; PCP Nurse Practitioner Family; Visit Provider Hospitalist
DX: G93.40 Encephalopathy, unspecified (principal); J96.21 Acute and chronic respiratory failure with hypoxia; E11.42 Type 2 diabetes mellitus with diabetic polyneuropathy; F14.10 Cocaine abuse, uncomplicated; J96.22 Acute and chronic respiratory failure with hypercapnia; Z71.6 Tobacco abuse counseling; Z86.16 Personal history of COVID-19; Z99.89 Dependence on other enabling machines and devices; K21.9 Gastro-esophageal reflux disease without esophagitis; G47.33 Obstructive sleep apnea (adult) (pediatric); F17.210 Nicotine dependence, cigarettes, uncomplicated; Z20.822 Contact with and (suspected) exposure to COVID-19; Z79.82 Long term (current) use of aspirin; Z79.899 Other long term (current) drug therapy
CPT/HCPCS: 36415; 70450; 71045; 71275; 80048; 80053; 80076; 80307; 80320; 81003; 82140; 82533; 82607; 82746; 82947; 83605; 83735; 83880; 84100; 84443; 84484; 85025; 85610; 85730; 86140; 87040; 87070; 87205; 87635; 93005; 94002; 94003; 94640; 94799; 96372; 96374; 96375; 99285; 99291; C1758; J1956; J2060; J2250; J2543; Q9967

== ENCOUNTER → 2020-11-07 10:06 | Outpatient (BNVA) | payer OTHER, SELFPAY | PROVIDERS: PCP Nurse Practitioner Family; Visit Provider Orthopaedic Surgery | DX: G56.01 Carpal tunnel syndrome, right upper limb (principal) | CPT/HCPCS: 99212 ==

== ENCOUNTER → 2020-11-25 13:11 | Outpatient (BNVA) | payer OTHER, SELFPAY | PROVIDERS: PCP Nurse Practitioner Family; Visit Provider Nurse Practitioner ==

== ENCOUNTER → 2021-01-23 14:09 | Outpatient (BNVA) | payer OTHER, SELFPAY | PROVIDERS: Visit Provider Nurse Practitioner ==

== ENCOUNTER → 2021-02-06 11:12 | Outpatient (BNVA) | payer OTHER, SELFPAY | PROVIDERS: PCP Nurse Practitioner Family; Visit Provider Internal Medicine | DX: J44.1 Chronic obstructive pulmonary disease with (acute) exacerbation (principal); G47.33 Obstructive sleep apnea (adult) (pediatric); F17.210 Nicotine dependence, cigarettes, uncomplicated; Z71.6 Tobacco abuse counseling | CPT/HCPCS: 99212 ==

== ENCOUNTER → 2021-03-07 11:27 | Outpatient (BNVA) | payer OTHER, SELFPAY | PROVIDERS: PCP Nurse Practitioner Family; Visit Provider Internal Medicine Pulmonary Disease | DX: G47.33 Obstructive sleep apnea (adult) (pediatric) (principal); J44.9 Chronic obstructive pulmonary disease, unspecified | CPT/HCPCS: 99212 ==

== ENCOUNTER → 2021-04-06 15:08 | Outpatient (BNVA) | payer OTHER, SELFPAY | PROVIDERS: PCP Nurse Practitioner Family; Visit Provider Physician Assistant | DX: M75.80 Other shoulder lesions, unspecified shoulder (principal) | CPT/HCPCS: 20610; 99212; J1020 ==

== ENCOUNTER → 2021-04-18 14:46 | Outpatient (BNVA) | payer OTHER, SELFPAY | PROVIDERS: PCP Nurse Practitioner Family; Visit Provider Internal Medicine Pulmonary Disease ==

== ENCOUNTER → 2021-05-23 13:36 | Outpatient (BNVA) | payer OTHER, SELFPAY | PROVIDERS: PCP Nurse Practitioner Family; Visit Provider Orthopaedic Surgery | DX: M79.642 Pain in left hand (principal); M79.641 Pain in right hand | CPT/HCPCS: 99212 ==

== ENCOUNTER → 2021-06-06 15:03 | Outpatient (BNVA) | payer OTHER, SELFPAY | PROVIDERS: Referring Provider Nurse Practitioner Family; Visit Provider Nurse Practitioner | DX: K31.84 Gastroparesis (principal); K21.9 Gastro-esophageal reflux disease without esophagitis; K22.4 Dyskinesia of esophagus; K22.70 Barrett's esophagus without dysplasia | CPT/HCPCS: 99212 ==

== ENCOUNTER 2021-06-07 11:54 | Outpatient (RCR) | payer OTHER, SELFPAY ==
--- NOTE | 2021-06-08 11:54 | MHC.OT.OEV ---
[address] [phone] F: [phone] Occupational Therapy Evaluation Diagnosis: PAIN IN BOTH HANDS Date of Onset: 07/01/18 Date of Surgery: 10/27/20 Attending Provider: Stacia Nguyen Prescribed Treatment: EVAL AND TREAT;MODALITIES, ROM, TEACH STRATEGIES TO MANAGE LIKELY ARTHRITIS MD Follow Up Appointment: 06/27/21 History of Current Condition: Pt REPORTS R CTR ON 10/27/20 WITH ONGOING PINS/NEEDLES IN R HAND AND ARM, PAIN AND WEAKNESS. ALSO REPORTS B/L CMC AND PIPj PAIN FOR ABOUT TWO TO THREE YEARS. Significant Medical History: TYPE II DM, COPD, OP, ASTHMA, EMPHYSEMA, HENRY, BRONCHITIS, BACK PROBLEMS, (+) COVID-17 OCTOBER 2020, COCAINE AND TOBACCO USE, Precautions/Contraindications: PAIN Patient Goals: TO STOP PAIN Hand Dominance: Left QuickDASH Score: 100% Prior Level of Function and Occupation Self Care, Employment, Leisure: DISABLED. 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 ASSISTS WITH SHOWERING (SEATED VS STANDING USING SHOWER CHAIR), DRESSING, LAUNDRY, CLEANING HOUSE, DISHES HOBBIES: WATCHING TV, TALK ON THE PHONE, READING Living Situation, Family and/or Social Support: LIVES WITH DAUGHTERS AND SONS Current Level of Function and Occupation Self Care, Employment, Leisure: ASSISTANCE WITH SHOES, SOCKS, BRA; INCREASED NEED FOR ASSISTANCE WITH IADLs: COOKING, CLEANING. UNABLE TO LIFT CELL PHONE OR CUP OF COFFEE. Sleep: UNABLE TO SLEEP DUE TO PAIN, WAKES OFTEN AT NIGHT DOES NOT WEAR NIGHT SPLINTS FOR L CTS Driving: NOT DRIVING, RECEIVES ASSISTANCE Vision: WEARS GLASSES, LOW VISION Balance: POOR BALANCE; UTILIZES ROLLATOR WITH INCREASED DISTANCES/ COMMUNITY AMBULATION. ALSO OWNS [facility] [place] Pain Assessment Pain Score: 2-9/10 Pain Scale Used: Numeric (0 - 10) Pain Location and Description: 6/10 IP JOINTS, CMC IN L HAND, 2/10 IN L WRIST 8/10 IP JOINTS, CMC IN R HAND, 9/10 IN R WRIST Aggravating Factors: GRIPPING, LIFTING, PAIN UNCHANGED WITH USE VS REST Alleviating Factors: MOTRIN, BACLOPHEN, REPORTS RELIEF WITH USE OF HEAT HAS TRIED VOLTAREN WITH REPORTS OF ALLERGIC REACTION Skin and Soft Tissue Assessment Skin and Soft Tissue: Comments: HEALED SURGICAL SCAR TO R PALM Sensory Assessment Comments: SEMMES THANH: LOSS OF PROTECTIVE SENSATION B/L DIGITS Edema Assessment Upper Extremity: Right Impaired Lower Extremity: Comments: SOME MILD EDEMA PRESENT AT R VOLAR WRIST, SURGICAL SITE Dexterity Assessment Dexterity: B/L Impaired Comments: FUNCTIONAL DEXTERITY TEST: RIGHT 58 SECONDS (NONFUNCTIONAL), L 45 SECONDS (MINIMALLY FUNCTIONAL) Special Tests Comments: AROM(PROM) Strength Shoulder Flexion: Extension: Abduction: Internal Rotation: External Rotation: Comments: SH FLEXION GROSSLY 90 DEGREES R, 130 DEGREES L PAIN WITH R SH FLEXION XRAYS REVEAL 1. Mild supraspinatus tendinosis. Possible small 3 mm interstitial tear anteriorly. 2. Infraspinatus tendinosis. Cluster of calcific tendinitis/bursitis, cluster extending over a distance of approximately 1.2 x 1.5 cm. There may be an additional focus of calcific tendinitis anterior to this, as well, evaluation limited by motion artifact.3. Mild subscapularis tendinosis.4. Biceps tendon is intact. Focus of calcification along the anterior aspect of the femoral neck, seen on the recent x-ray is not evident on MRI.5. Superior labral degeneration plus/minus fraying/tear. Flexion: Extension: Abduction: Internal Rotation: External Rotation: Comments: Elbow Flexion: Extension: Pronation: Supination: Comments: SOME LIMITATIONS WITH SUPINATION B/L'LY Flexion: Extension: Pronation: Supination: Comments: Wrist Flexion: R 62, L 58 Extension: R 60, L 62 Ulnar Deviation: R 25, L 30 Radial Deviation: R 15, L 15 Comments: Flexion: Extension: Ulnar Deviation: Radial Deviation: Comments: Digits Index MCP: PIP: DIP: Long MCP: PIP: DIP: Ring MCP: PIP: DIP: Small MCP: PIP: DIP: Comments: Gross Grasp: R 15, L 28 Lateral Pinch: R 7, L 11 Two-Point Pinch: Three-Jaw Jose: Comments: PAIN IN R > L GRASP Patient Education Primary Language: Telugu Air Twist Operator Required: No Current Knowledge: Minimal, needs reinforcement Teaching Method: Demonstration Handouts Verbal Education Needs Identified on Evaluation: ADL's Disease Information Equipment Use Exercise Pain Safety How did patient/family demonstrate learning? Patient demonstrates Patient verbalizes Needs reinforcement Barriers to Learning: None Readiness for Learning: Accepting Who was educated? Patient Comments: Plan of Care Assessment: CYNTHIA IS BEING REFERRED DUE TO PAIN IN B/L HANDS AND WRISTS. SHE REPORTS ABOUT A TWO TO THREE YEAR HISTORY OF B/L HAND PAIN. Pt HAS A COMPLEX PMHX AND MOST RECENTLY UNDERWENT A R CTR WITH DR NGUYEN ON 10/27/20. SHE REPORTS ONGOING PINS AND NEEDLES IN B/L HANDS, WELL PAIN AND WEAKNESS. A 100% LIMITATION IS REPORTED PER THE QUICK DASH ASSESSMENT. 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 ONGOING SKILLED OT IS WARRANTED TO ADDRESS ROM, STRENGTH, COORDINATION, PATIENT EDUCATION, IMPROVE QOL AND PROMOTE INDEPENDENCE. STG Duration: 3 WEEKS Short Term Goals: IND HEP IND USE OF HEAT, INCLUDING HOME PARAFFIN UNIT IND JOINT PROTECTION AND ACTIVITY MODIFICATION IND ORTHOSIS USE IND RECALL OF SAFETY STRATEGIES FOR IADLs DUE TO IMPAIRED SENSATION IND ADL CLOSURE BOARD LTG Duration: 6 WEEKS Shelter Goals: REPORT MODERATE DIFFICULTIES WITH SLEEPING REPORT <5/10 PAIN IN B/L HANDS DURING ADLs IND PROGRESSION OF HEP INCREASE B/L DIRECTOR ENGINEERING STRENGTH BY 10 POUNDS Frequency and Duration: The patient will be seen 1X/WEEK FOR 6 WEEKS Treatment Plan: Therapeutic Exercise Therapeutic Activity Home Exercise Program Splinting Neuro Re-ed Patient Education Desensitization/Sensory Re-ed Edema Control ADL Training Ultrasound NMES Paraffin Fluidotherapy MHP Cold Packs Joint Mobilization Soft Tissue Mobilization Kinesiotaping Other (see comments) Pt REPORTS LIMITATIONS WITH TRANSPORTATION, REQUESTING 1X/WEEK FOR OT SESSIONS Electronically Signed By: JAYASHREE DE LA CRUZ/Terrence Reviewed/agree with student documentation: N/A Therapist: Please sign and return to therapist, Thank you for your referral.
--- NOTE | 2021-07-04 14:55 | MHC.OT.DC ---
[address] [phone] F: [phone] Occupational Therapy Discharge Note Provider: Stacia Whitfield Diagnosis: PAIN IN BOTH HANDS Date of Surgery: 10/27/20 Date of Evaluation: 06/07/21 Date of Discharge: 07/04/21 Treatments to Date: 1 Cancellations to Date: 2 No Shows to Date: 3 Discharge Status: Recommend MD Follow-up Visit Non-compliance Discharge Summary: MS SAWYER PRESENTED FOR HER INITIAL EVAL. UNFORTUNATELY, SHE NEGLECTED TO FOLLOW UP WITH ADDITIONAL VISITS. PATIENT WILL BE DISCHARGED DUE TO THE CORE ATTENDANCE POLICY. Electronically Signed By: JAYASHREE DE LA CRUZ/Terrence Reviewed/agree with student documentation: N/A Therapist: Please Sign and return to therapist, thank you for your referral.
== END 2021-07-04 14:55 | disposition home or self-care (01) ==
LOC: HO.OT 11:54
PROVIDERS: PCP Nurse Practitioner Family; Visit Provider Orthopaedic Surgery
DX: M79.641 Pain in right hand (principal); M79.642 Pain in left hand
CPT/HCPCS: 97018; 97167

== ENCOUNTER → 2021-07-13 12:55 | Outpatient (BNVA) | payer OTHER, SELFPAY | PROVIDERS: PCP Nurse Practitioner Family; Visit Provider Internal Medicine Pulmonary Disease | DX: J44.9 Chronic obstructive pulmonary disease, unspecified (principal); G47.33 Obstructive sleep apnea (adult) (pediatric) | CPT/HCPCS: 99212 ==

== ENCOUNTER 2021-08-06 10:57 | Emergency (ER) | payer OTHER, SELFPAY ==
[2021-08-06 11:06] VITALS: BP 136/84; BP 143/87; PULSE 82; PULSE 84; RESP 17; TEMP 37; O2SAT 95; BMI 38.1
--- NOTE | 2021-08-06 11:17 | ED_ITS ---
HPI - Allergic Reaction General Chief complaint: Allergic Reaction Stated complaint: EYES BURNING,? ALLERGIC REACTION X'S 1 WEEK Time Seen by Provider: 08/06/21 11:17 Source: patient and EMS Mode of arrival: EMS Limitations: no limitations History of Present Illness HPI narrative: Patient is a 51 year old female presenting to the emergency department today with itchy eyes and face. Patient states that for the last week, she has had increased burning and itching of her eyes and her face is red. Patient states that the only thing in her house to change, is her cats conner liter. Patient states that she has not been on any new medications, used any new soaps, or used any new laundry detergents. Patient states this all started after she was petting her cat who had just rolled in the new brand of litter.. Patient denies any dizziness, lightheadedness, abdominal pain, nausea, vomiting, fever, chills, blurry vision, double vision, loss of vision, chest pain, difficulty breathing, shortness of breath, back pain, night sweats, pain with urination, increased urinary frequency, increased urinary urgency, blood in her urine or stool, syncope or a near syncopal episode, recent trauma or falls, bowel incontinence, bladder incontinence, bowel retention, bladder retention, or any other complaints at this time. Patient states that she has a history of chronic bronchitis and COPD. Patient states that she has a history of diabetes as well. MD complaint: allergic reaction Onset (ago): week(s) (1) Exposure: other (new conner liter) Related Data Previous Rx's Medication Instructions Recorded alcohol swabs 1 pad TOPICAL DAILY #100 ea 09/07/20 blood sugar diagnostic (FreeStyle #100 ea 01/20/21 Lite Strips) 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 meter (FreeStyle #1 ea 01/20/21 Lite Meter) lancets 28 gauge (FreeStyle #100 ea 01/20/21 Lancets) dexlansoprazole 60 mg 60 mg PO DAILY #30 cap 01/23/21 capsule,biphase delayed release (Dexilant) theophylline 400 mg 400 mg PO DAILY 30 Days #30 tab 03/07/21 tablet,extended release 24 hr baclofen 20 mg tablet 20 mg PO BID PRN 30 Days #60 tab 04/14/21 ipratropium 0.5 mg-albuterol 3 mg 3 ml INHALATION Q6-8H PRN 30 Days 04/17/21 (2.5 mg base)/3 mL nebulization #180 ml soln fluconazole 150 mg tablet 150 mg PO Q3D #2 tab 04/18/21 lidocaine 5 % topical ointment 1 appl TOPICAL BEDTIME #30 g 04/24/21 valacyclovir 1 gram tablet 1,000 mg PO TID #21 tab 04/24/21 (Valtrex) albuterol sulfate 90 mcg/actuation 2 puff INHALATION Q6H PRN 30 Days 04/25/21 aerosol inhaler (ProAir HFA) #8.5 g aspirin 81 mg tablet,delayed 81 mg PO DAILY 90 Days #90 tab 04/25/21 release lubiprostone 24 mcg capsule 24 mcg PO BID 30 Days #60 cap 05/10/21 (Amitiza) diclofenac sodium 1 % topical gel 2 g TOPICAL BID #100 g 05/23/21 (Voltaren Arthritis Pain) gabapentin 800 mg tablet 800 mg PO QID 30 Days #120 tab 05/26/21 ibuprofen 800 mg tablet 800 mg PO BID PRN 30 Days #90 tab 05/26/21 atorvastatin 80 mg tablet 80 mg PO DAILY #30 tab 05/28/21 dicyclomine 10 mg capsule See Rx Instructions PO .tidac 06/06/21 #180 cap bupropion HCl 300 mg 24 hr tablet, 300 mg PO QAM #30 tab 06/13/21 extended release cholecalciferol (vitamin D3) 50 50 mcg PO DAILY 30 Days #30 cap 06/13/21 mcg (2,000 unit) capsule glipizide 5 mg tablet 5 mg PO DAILY 30 Days #30 tab 06/14/21 losartan 25 mg tablet 25 mg PO DAILY #30 tab 06/14/21 dulaglutide 0.75 mg/0.5 mL 0.75 mg (0.5 mL) SUBCUT QWEEK 30 06/27/21 subcutaneous pen injector Days #2.5 ml (Trulicity) acetaminophen 650 mg 650 mg PO Q12H PRN #60 tab 07/03/21 tablet,extended release (Mapap Arthritis Pain) levofloxacin 750 mg tablet 750 mg PO DAILY 7 Days #7 tab 07/13/21 prednisone 10 mg tablet 40 mg PO DAILY 7 Days #28 tab 07/13/21 tiotropium 2.5 mcg-olodaterol 2.5 2 puff PO DAILY #4 ml 07/20/21 mcg/actuation mist for inhalation (Stiolto Respimat) tizanidine 4 mg tablet 4 mg PO BID PRN 30 Days #60 tab 08/01/21 furosemide 20 mg tablet 20 mg PO BID 30 Days #60 tab 08/02/21 prednisone 20 mg tablet 20 mg PO DAILY 12 Days #26 tab 08/06/21 Allergies Allergy/AdvReac Type Severity Reaction Status Date / Time doxycycline Allergy Severe Swelling Verified 08/06/21 11:09 varenicline [From Allergy Severe ANAPHYLAXIS Verified 08/06/21 11:09 CHANTIX] azithromycin Allergy Mild Rash Verified 08/06/21 11:09 cetirizine Allergy Mild Rash Verified 08/06/21 11:09 famotidine Allergy Mild Rash Verified 08/06/21 11:09 linaclotide [Linzess] Allergy Mild Rash Verified 08/06/21 11:09 barium sulfate Allergy Unknown angioedema Verified 08/06/21 11:09 Review of Systems Verdana 4l Constitutional: Verdana 4d Constitutional: Verdana 4d Verdana 4d Reports no additional constitutional complaints, Denies chills, Denies fever(s) and Denies night sweats Verdana 4l Eyes: Verdana 4d Verdana 4d Eyes: Verdana 4d Reports no additional eye complaints, Denies blurry vision, Denies change in vision, Denies diplopia, Denies eye discharge, Reports irritation, Reports itchy eyes, Denies loss of vision and Denies eye pain Verdana 4l ENT: Verdana 4d Denies dizziness Verdana 4l Cardiovascular: Verdana 4d Cardiovascular: Verdana 4d Verdana 4d Reports no additional cardiovascular complaints, Denies chest pain, Denies lightheadedness, Denies Loss of Consciousness and Denies dyspnea Verdana 4l Respiratory: Verdana 4d Verdana 4d Respiratory: Verdana 4d Reports no additional respiratory complaints and Denies dyspnea Verdana 4l Gastrointestinal: Verdana 4d Gastrointestinal: Verdana 4d Verdana 4d Reports no additional gastrointestinal complaints, Denies abdominal pain, Denies melena, Denies hematochezia, Denies change in bowel habits and Denies change in stool character Verdana 4l Genitourinary: Verdana 4d Verdana 4d Genitourinary: Verdana 4d Denies hematuria, Denies urinary frequency, Denies dysuria, Denies urinary incontinence, Denies urinary hesitancy and Denies urinary urgency Verdana 4l Musculoskeletal: Verdana 4d Musculoskeletal: Verdana 4d Verdana 4d Reports no additional musculoskeletal complaints, Denies numbness and Denies tingling Verdana 4l Neurologic: Verdana 4d Denies dizziness, Denies loss of vision, Denies numbness and Denies tingling Verdana 4l Psychiatric: Verdana 4d Verdana 4d Psychiatric: Verdana 4d Reports no additional psychiatric complaints Verdana 4l Endocrine: Verdana 4d Verdana 4d Endocrine: Verdana 4d Reports no additional endocrine complaints Verdana 4l Hematologic/Lymphatic: Verdana 4d Hematologic/Lymphatic: Verdana 4d Verdana 4d Reports no additional hematologic/lymphatic complaints Verdana 4l Allergic/Immunologic: Verdana 4d Allergic/Immunologic: Verdana 4d Verdana 4d Reports no additional allergic/immunologic complaints and Reports itchy eyes Verdana 4d Comments: Verdana 4d Verdana 4d face redness Verdana 4d [facility] Past Medical History Attestation statement: The following information was validated with the patient. Source: old records reviewed Medical History Acute and chronic respiratory failure with hypercapnia Acute and chronic respiratory failure, unspecified whether with hypoxia or hypercapnia Acute and chronic respiratory failure, unspecified whether with hypoxia or hypercapnia Asthma Bustos's esophagus Carpal tunnel syndrome of right wrist Chronic idiopathic constipation Chronic renal failure, stage 2 (mild) Cocaine abuse COPD (chronic obstructive pulmonary disease) COPD exacerbation Crack cocaine use Depression Diabetes mellitus Encounter for preoperative pulmonary examination Gastroparesis GERD (gastroesophageal reflux disease) Hernia High triglycerides HTN (hypertension) Knee pain, bilateral Nausea & vomiting Obesity (BMI 30-39.9) Respiratory failure Smoker Surgical History History of esophagogastroduodenoscopy (EGD) History of open reduction and internal fixation (ORIF) procedure History of pubovaginal sling History of umbilical hernia repair Hx of section Hx of cholecystectomy Family History Family History Father Heart disease HENRY (obstructive sleep apnea) Family history of breast cancer Mother Asthma Emphysema, unspecified Bronchitis Smoker Alcoholism Bone marrow disease Maternal Grandmother Diabetes Social History Social History Household Members: Unknown / Unable to assess Housing: Unknown / Unable to assess Are you a primary career guidance counselor to a significant other at home: No Do you presently have visiting nurse or other home services: No Unable to assess alcohol history related to: Unknown Alcohol intake: unknown Patient Tobacco Use Status: Current everyday Tobacco user Cigarette Packs Per Day: 1 Cigarettes Per Day: 20.0 Years Smoked: 35 Second Hand Smoke Exposure: No Substance Use Type: Crack/Cocaine Advance Directives: Yes Advance Directives on File: Yes Advance Directives Date on File: 04/15/20 Patient : No service: No Current occupational status: unemployed 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 Physical Exam Verdana 4l Vital Signs: Verdana 4d Verdana 4d Vital Signs: Verdana 4d Verdana 4Bd Last Vital Signs Verdana 4d Tank Processor New 4d Tank Processor New 4d Temp 98.6 F 08/06/21 11:06 Tank Processor New 4d Pulse 82 08/06/21 11:06 Tank Processor New 4d Resp 17 08/06/21 11:06 BP 143/87 H 08/06/21 11:06 Pulse Ox 95 08/06/21 11:06 BMI result Body Mass Index 38.1 Const: General: cooperative, no acute distress, alert and awake Nutritional Appearance: well nourished Orientation/consciousness: patient oriented x3 Limitations: no limitations HENMT: Head: Yes normal to inspection and Yes atraumatic Ears: hearing grossly normal bilaterally and external ears normal General nose exam: Normal external nose present, no nasal discharge noted and no epistaxis Face and sinus: Yes normal facial exam, No abrasion and No laceration Mouth: Normal oral and palatal mucosa present, no drooling and no muffled voice Eyes: General: appearance normal, both eyes and all related structures Periorbital: periorbital findings normal Eyelids: Yes eyelids normal Conjunctivae: conjunctivae normal Pupils: Equal, round and reactive pupils present EOM: EOMs intact bilaterally Neck: Neck: Yes normal visual inspection, Yes full ROM and Yes no lymphadenopathy Chest: Chest palpation & inspection: normal inspection of the chest Resp: Effort & Inspection: normal respiratory effort and able to speak in complete sentences Auscultation: clear to auscultation bilaterally Cardio: Rate: regular rate Rhythm: regular rhythm GI: Inspection: Yes normal to inspection Skin: Other: redness to the face sparing the nose and eyes Neuro: General: patient oriented x3 and moves all extremities Cranial nerves: Yes Equal, round and reactive pupils present Cognition (Neuro): normal cognition Motor exam (neuro): 5/5 motor strength present throughout Sensory Exam: Normal double simultaneous stimulation for sensation Coordination: [id number] test normal Extrem: General: Yes normal to inspection, Yes full ROM and Yes capillary refill normal Psych: Appearance: grossly normal Mental Status: mental status grossly normal Affect: normal affect Attitude: cooperative Thought process: Normal thought process present Thought content: Normal thought content present Insight: Good insight present (Psych) MDM - Allergic Reaction MDM Narrative Medical decision making narrative: Patient is a 51 year old female presenting to the emergency department today with itchy eyes and face. Patient's physical exam showed redness to the face that was sparing of the nose and eyes. Patient's physical exam was otherwise unremarkable including no swelling of the throat or mucousal membranes. Patient was in absolutely no respiratory distress. Patient's clinical presentation is most consistent with contact dermatitis vs. allergic reaction secondary to new allergen exposure. Due to the absence of oral swelling or mucous membrane swelling, I do not believe this to be Waldemar's or anaphylaxis. I explained my physical exam findings to the patient. I answered all questions asked by the patient. Patient received IM Solu-medrol and benadryl which she stated helped her symptoms significantly. I stressed the importance of the patient removing the conner litter from the household and deep cleaning the entire premesis. I stressed the importance of the patient taking her medication as prescribed. I stressed the importance of the patient following up with her primary care pro vider. I stressed the importance of the patient returning to the emergency department immediately if her symptoms were to worsen or if she were to develop any dizziness, shortness of breath, difficulty breathing, chest pain, blurry vision, loss of vision, nausea, vomiting, abdominal pain, fever, chills, back pain, or any other complaints. Patient verbalized agreement and understanding with this treatment plan and discharge. Differential Diagnosis Differential diagnosis: Likely anaphylaxis, allergic reaction and contact dermatitis Medical Records Attestation: I reviewed the patient's medical records. Discharge Plan Discharge Clinical Impression: Allergic reaction Patient Disposition: Home, Self-Care Instructions: General Allergic Reaction (ED) Additional Instructions: Throw away the new conner litter, immediately and deep clean the premises. Follow up with your primary care provider. Return to the emergency department immediately if your symptoms worsen or if you develop any dizziness, shortness of breath, difficulty breathing, chest pain, blurry vision, loss of vision, nausea, vomiting, abdominal pain, fever, chills, back pain, or any other complaints. Prescriptions: New prednisone 20 mg tablet 20 mg PO DAILY 12 Days Qty: 26 0RF Rx Instructions: Take 3 tablets by mouth for 5 days THEN; Take 2 tablets by mouth for 4 days THEN; Take 1 tablet by mouth for 3 days No Action alcohol swabs Pads, Medicated 1 pad topical DAILY Qty: 100 1RF Rx Instructions: Use to check blood sugar daily or if symptomatic hypo/hypergylcemia (DME) 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 meter [FreeStyle Lite Meter] Kit See Rx Instructions .ROUTE .MEDSUPPLY Qty: 1 0RF Rx Instructions: Use to check blood sugar daily or if symptomatic for hypo/hyperglycemia (DME) lancets [FreeStyle Lancets] 28 gauge misc See Rx Instructions .ROUTE .MEDSUPPLY Qty: 100 1RF Rx Instructions: Use to check blood sugar daily or if symptomatic hypo/hypergylcemia (DME) FreeStyle Lite Strips Strip See Rx Instructions .ROUTE .MEDSUPPLY Qty: 100 1RF Rx Instructions: Use to check blood sugar daily or if symptomatic hypo/hypergylcemia baclofen 20 mg tablet 20 mg PO BID PRN (Reason: muscle spasm) 30 Days Qty: 60 2RF ipratropium-albuterol 0.5 mg-3 mg(2.5 mg base)/3 mL solution for nebulization 3 ml inhalation Q6-8H PRN (Reason: for wheezing) 30 Days Qty: 180 6RF fluconazole 150 mg tablet 150 mg PO Q3D Qty: 2 0RF lidocaine 5 % ointment 1 appl topical BEDTIME Qty: 30 1RF aspirin 81 mg tablet,delayed release (DR/EC) 81 mg PO DAILY 90 Days Qty: 90 0RF albuterol sulfate [ProAir HFA] 90 mcg/actuation HFA aerosol inhaler 2 puff inhalation Q6H PRN (Reason: shortness of breath or wheezing) 30 Days Qty: 8.5 4RF Rx Instructions: proair Amitiza 24 mcg capsule 24 mcg PO BID 30 Days Qty: 60 3RF ibuprofen 800 mg tablet 800 mg PO BID PRN (Reason: pain) 30 Days Qty: 90 1RF gabapentin 800 mg tablet 800 mg PO QID 30 Days Qty: 120 2RF atorvastatin 80 mg tablet 80 mg PO DAILY Qty: 30 3RF cholecalciferol (vitamin D3) 50 mcg (2,000 unit) capsule 50 mcg PO DAILY 30 Days Qty: 30 2RF bupropion HCl 300 mg tablet extended release 24 hr 300 mg PO QAM Qty: 30 2RF losartan 25 mg tablet 25 mg PO DAILY Qty: 30 3RF glipizide 5 mg tablet 5 mg PO DAILY 30 Days Qty: 30 4RF Trulicity 0.75 mg/0.5 mL pen injector 0.75 mg subcut QWEEK 30 Days Qty: 2.5 5RF acetaminophen [Mapap Arthritis Pain] 650 mg tablet extended release 650 mg PO Q12H PRN (Reason: for pain) Qty: 60 2RF Stiolto Respimat 2.5-2.5 mcg/actuation mist 2 puff PO DAILY Qty: 4 6RF tizanidine 4 mg tablet 4 mg PO BID PRN (Reason: muscle spasm) 30 Days Qty: 60 0RF Rx Instructions: take afternoon and night, not to be taken with SOMA at the same time furosemide 20 mg tablet 20 mg PO BID 30 Days Qty: 60 6RF valacyclovir [Valtrex] 1 gram tablet 1,000 mg PO TID Qty: 21 0RF Dexilant 60 mg capsule,biphase delayed releas 60 mg PO DAILY Qty: 30 6RF dicyclomine 10 mg capsule See Rx Instructions PO .tidac Qty: 180 6RF Rx Instructions: 1-2 caps tidac for dysphagia PO .tidac; theophylline 400 mg tablet extended release 24 hr 400 mg PO DAILY 30 Days Qty: 30 6RF levofloxacin 750 mg tablet 750 mg PO DAILY 7 Days Qty: 7 0RF prednisone 10 mg tablet 40 mg PO DAILY 7 Days Qty: 28 0RF diclofenac sodium [Voltaren Arthritis Pain] 1 % gel 2 g topical BID Qty: 100 0RF Rx Instructions: apply to wrist or hand; for hand includes palm/fingers/back of hand Referrals: Joe Hale, STUDENT SUPPORT SERVICES DIRECTOR-BC [Primary Care Provider] - 2 days Interventions: ED Discharge Assessment Last Done: 08/06/21 11:37 Discharge Date/Time: 08/06/21 11:37 Print Language: Bengali
[2021-08-06] MEDS: methylPREDNISolone Sod Succ 125 MG/2 ML VIAL 120 MG IM (11:31)
[2021-08-06] MEDS: diphenhydrAMINE HCL 50 MG/ML VIAL IM (11:32)
== END 2021-08-06 11:37 | disposition home or self-care (01) ==
PROVIDERS: Emergency Provider Emergency Medicine; PCP Nurse Practitioner Family
DX: H57.13 Ocular pain, bilateral (principal); F17.210 Nicotine dependence, cigarettes, uncomplicated; F14.90 Cocaine use, unspecified, uncomplicated; Z71.6 Tobacco abuse counseling; Z79.899 Other long term (current) drug therapy
CPT/HCPCS: 96372; 99283; J1200; J2930

== ENCOUNTER 2021-08-08 08:56 | Outpatient (REF) | payer OTHER, SELFPAY | END 2021-08-08 08:57 | disposition home or self-care (01) | LOC: HO.HOSX 08:56 | PROVIDERS: Visit Provider Orthopaedic Surgery | DX: Z13.89 Encounter for screening for other disorder (principal) ==

== ENCOUNTER → 2021-09-11 12:33 | Day surgery (SDC) | payer OTHER, SELFPAY ==
[2021-09-06 14:47] VITALS: BMI 37.3
--- NOTE | 2021-09-08 10:10 | P.CONAN_ITS ---
HPI - Anesthesia Eval Consult details Narrative: 51yo F for Upper Endoscopy Previously cx'd for +u-tox PMFSH Active Problems Active Problems: All Active Problems (Updated 08/07/21 @ 00:01 by Shara Beckman) Abdominal cramping (Acute) Osteoarthritis (Acute) Rotator cuff tendonitis (Acute) Neck pain (Acute) SOB (shortness of breath) (Acute) Cocaine abuse (Acute) Constipation (Acute) HENRY (obstructive sleep apnea) (Acute) Rotator cuff tendonitis (Acute) Herpes genitalia (Acute) Right hand pain (Acute) Left hand pain (Acute) Esophageal dysmotility (Acute) COPD (chronic obstructive pulmonary disease) (Acute) Bustos's esophagus (Acute) GERD (gastroesophageal reflux disease) (Acute) Gastroparesis (Acute) Carpal tunnel syndrome of right wrist (Acute) COPD exacerbation (Acute) Smoker (Acute) Acute and chronic respiratory failure, unspecified whether with hypoxia or hypercapnia (Acute) Past Medical History Medical History Acute and chronic respiratory failure with hypercapnia Acute and chronic respiratory failure, unspecified whether with hypoxia or hypercapnia Acute and chronic respiratory failure, unspecified whether with hypoxia or hypercapnia Asthma Bustos's esophagus Carpal tunnel syndrome of right wrist Chronic idiopathic constipation Chronic renal failure, stage 2 (mild) Cocaine abuse COPD (chronic obstructive pulmonary disease) COPD exacerbation Crack cocaine use Depression Diabetes mellitus Encounter for preoperative pulmonary examination Gastroparesis GERD (gastroesophageal reflux disease) Hernia High triglycerides HTN (hypertension) Knee pain, bilateral Nausea & vomiting Obesity (BMI 30-39.9) Respiratory failure Smoker Family History Family History Father Heart disease HENRY (obstructive sleep apnea) Family history of breast cancer Mother Asthma Emphysema, unspecified Bronchitis Smoker Alcoholism Bone marrow disease Maternal Grandmother Diabetes Surgical History Surgical History (Updated 09/06/21 @ 14:46 by Lola Martini RN) History of esophagogastroduodenoscopy (EGD) History of open reduction and internal fixation (ORIF) procedure History of pubovaginal sling History of umbilical hernia repair Hx of section Hx of cholecystectomy Hx of tubal ligation Social History Social History Household Members: Unknown / Unable to assess Housing: Unknown / Unable to assess Are you a primary pet care technician to a significant other at home: No Do you presently have visiting nurse or other home services: Yes ([employer] CLERK-daughter) Unable to assess alcohol history related to: Unknown Alcohol intake: unknown Patient Tobacco Use Status: Current everyday Tobacco user Tobacco use type: Cigarette Cigarette Packs Per Day: 1 Cigarettes Per Day: 10 Years Smoked: 35 Smoked in Last 30 Days: Yes Second Hand Smoke Exposure: No Substance Use Type: Crack/Cocaine Have you been hit, kicked, punched, or otherwise hurt by someone within the past year? 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 [employer] Meds Allergies Allergy/AdvReac Type Severity Reaction Status Date / Time doxycycline Allergy Severe Swelling Verified 09/06/21 15:46 varenicline [From CHANTIX] Allergy Severe ANAPHYLAXIS Verified 09/06/21 15:46 barium sulfate Allergy Intermediate angioedema Verified 09/06/21 15:46 azithromycin Allergy Mild Rash Verified 09/06/21 15:46 cetirizine Allergy Mild Rash Verified 09/06/21 15:46 famotidine Allergy Mild Rash Verified 09/06/21 15:46 linaclotide [Linzess] Allergy Mild Rash Verified 09/06/21 15:46 Exam Exam Date and Time: September 08, 2021 1010 Height,Weight and Vital Signs: Height 4 ft 11 in Weight 83.915 kg Assessment and Plan Assessment Anesthesia Assessment: Chart Reviewed
--- NOTE | 2021-09-11 13:04 | MHC.SHP ---
Pre-Procedural Eval Section A Date of Service: 09/26/21 The patient is an INPATIENT: No The History & Physical has been completed within 30 days and I have reviewed it.: No Section B Chief Complaint: Dysphagia, FU of Bustos's Details of Present Illness: GERD, dysphagia, follow-up of Barretts Relevant Family History (Specify if Yes): No Relevant Social History: Tobacco Use Present Medications: see Short Stay Collaborative assessment Medical History: Significant History (Acute and chronic respiratory failure, unspecified whether with hypoxia or hypercapnia Asthma Bustos's esophagus Carpal tunnel syndrome of right wrist Chronic idiopathic constipation Chronic renal failure, stage 2 (mild) Cocaine abuse COPD (chronic obstructive pulmonary disease) COPD exacerbation C) History of Previous Operations: Relevant previous surgery/procedure and date(s) (History of esophagogastroduodenoscopy (EGD) History of open reduction and internal fixation (ORIF) procedure History of pubovaginal sling History of umbilical hernia repair Hx of section Hx of cholecystectomy) Allergies: Allergies Allergy/AdvReac Type Severity Reaction Status Date / Time doxycycline Allergy Severe Swelling Verified 09/06/21 15:46 varenicline [From CHANTIX] Allergy Severe ANAPHYLAXIS Verified 09/06/21 15:46 barium sulfate Allergy Intermediate angioedema Verified 09/06/21 15:46 azithromycin Allergy Mild Rash Verified 09/06/21 15:46 cetirizine Allergy Mild Rash Verified 09/06/21 15:46 famotidine Allergy Mild Rash Verified 09/06/21 15:46 linaclotide [Linzess] Allergy Mild Rash Verified 09/06/21 15:46 Plan Diagnosis/Plan: Change Pt came for EGD today for fu of Bustos's esophagus. She has a hx of Cocaine use and she was asked to give a urine sample for drug screen by the pre-op nurse. She did not want to give a urine specimen since she said she may have used cocaine in the past 3 days. She was advised to reschedule and not to take cocaine for a week before her next EGD appt
--- NOTE | 2021-09-11 13:06 | P.BOP_ITS ---
Brief Operative Note Date of Service: 09/11/21 Pre-op diagnosis: Dysphagia, follow-up of Barretts. Procedure: FLEXIBLE TRANSORAL UPPER GASTROINTESTINAL ENDOSCOPY WITH BIOPSIES Consent: Indications for the procedure and potential complications of bleeding, perforation, reaction to medications and missed diagnosis were discussed with the patient and informed consent was obtained. Instrument: Olympus GIF H 190 mid size upper endoscope Monitoring: Vital signs and clinical assessment, continuous EKG monitoring, Pulse oximetry, Carbon Dioxide monitoring and blood pressure monitoring were done throughout the procedure. Procedure: The patient was placed in the left lateral decubitis position and pre-procedure medications were administered and a bite block was placed. The endoscope was inserted into the mouth and advanced under direct vision to the third part of duodenum. A careful inspection was made as the upper endoscope was withdrawn including a retroflexed examination of the proximal stomach; Findings and interventions are described below. Findings: Larynx: Normal Esophagus: GE junction at []. No esophagitis or Bustos's. Stomach: Mild gastric erythema. Biopsies were obtained. Grade 2 flap valve on retroflexed examination of the cardia. Duodenum: Normal bulb and descending duodenum Intervention: Biopsies as noted above Impression and Post Procedure Diagnosis: Endoscopy Findings: LARYNX: [] ESOPHAGUS: [] STOMACH: [] DUODENUM: [] Plan: Await pathology results Patient has an appointment on 10/02/21 in the [facility] with Ashley Mane NP . Above findings were reviewed with the patient and [GERD] and [Gastritis] handouts were given in the discharge area Surgeon: Minerva Isidro MD Was an Information And Data Architect Analyst used for this Procedure?: No
--- NOTE | 2021-09-11 13:09 | W.PM.OPN ---
Operative Note Operative Note Date of Service: 09/11/21
== END ==
PROVIDERS: PCP Nurse Practitioner Family; Visit Provider Internal Medicine Gastroenterology
DX: R13.10 Dysphagia, unspecified (principal); K22.70 Barrett's esophagus without dysplasia; Z53.9 Procedure and treatment not carried out, unspecified reason

== ENCOUNTER → 2021-09-18 13:32 | Outpatient (BNVA) | payer OTHER, SELFPAY | PROVIDERS: PCP Nurse Practitioner Family; Visit Provider Hospitalist | DX: R07.89 Other chest pain (principal); J44.1 Chronic obstructive pulmonary disease with (acute) exacerbation; J96.22 Acute and chronic respiratory failure with hypercapnia; E11.22 Type 2 diabetes mellitus with diabetic chronic kidney disease; I12.9 Hypertensive chronic kidney disease with stage 1 through stage 4 chronic kidney disease, or unspecified chronic kidney disease; N18.2 Chronic kidney disease, stage 2 (mild); E66.8 Other obesity; G47.33 Obstructive sleep apnea (adult) (pediatric); F17.210 Nicotine dependence, cigarettes, uncomplicated; F14.20 Cocaine dependence, uncomplicated; Z68.36 Body mass index [BMI] 36.0-36.9, adult; Z88.1 Allergy status to other antibiotic agents; Z88.8 Allergy status to other drugs, medicaments and biological substances; Z99.89 Dependence on other enabling machines and devices | CPT/HCPCS: 99212 ==

== ENCOUNTER → 2021-11-09 12:41 | Outpatient (BNVA) | payer OTHER, SELFPAY | PROVIDERS: PCP Nurse Practitioner Family; Visit Provider Internal Medicine Pulmonary Disease | DX: J44.0 Chronic obstructive pulmonary disease with (acute) lower respiratory infection (principal); G47.33 Obstructive sleep apnea (adult) (pediatric) | CPT/HCPCS: 99212 ==

== ENCOUNTER 2021-11-20 13:49 | Outpatient (REF) | payer OTHER, SELFPAY ==
[2021-11-21 10:54] LABS: BV Int Neg Control Negative (Negative); BV Int Pos Control Positive (Positive)
== END 2021-11-20 13:50 | disposition home or self-care (01) ==
LOC: HO.LNP 13:49
PROVIDERS: Visit Provider Physician Assistant
DX: N76.0 Acute vaginitis (principal)
CPT/HCPCS: 87480; 87510; 87660

== ENCOUNTER → 2021-11-28 06:48 | Day surgery (SDC) | payer OTHER, SELFPAY ==
[2021-11-22 10:17] VITALS: BMI 35.9
--- NOTE | 2021-11-24 12:48 | HO.ANESPROP2 ---
HPI - Anesthesia Eval Consult details Narrative: 51yo F for Upper Endoscopy Pt previously cancelled for +tox screen Per pulmo clearance: From pulmonary perspective patient is at low risk for pulmonary perioperative complications for the proposed right shoulder surgery either under general anesthesia, or monitored anesthesia care. No wheezing noted, no perioperative glucocorticoids indicated. Consider perioperative bronchodilator use. If intubation is required, consider extubation to BiPAP secondary to underlying obstructive sleep apnea. PMF Active Problems Active Problems: All Active Problems (Updated 09/18/21 @ 19:55 by Bob Rhodes MD) Abdominal cramping (Acute) Osteoarthritis (Acute) Rotator cuff tendonitis (Acute) Neck pain (Acute) SOB (shortness of breath) (Acute) Cocaine abuse (Acute) Constipation (Acute) HENRY (obstructive sleep apnea) (Acute) Rotator cuff tendonitis (Acute) Herpes genitalia (Acute) Right hand pain (Acute) Left hand pain (Acute) Esophageal dysmotility (Acute) Cocaine abuse (Acute) Chest discomfort (Acute) COPD (chronic obstructive pulmonary disease) (Acute) Bustos's esophagus (Acute) GERD (gastroesophageal reflux disease) (Acute) Gastroparesis (Acute) Carpal tunnel syndrome of right wrist (Acute) COPD exacerbation (Acute) Smoker (Acute) Acute and chronic respiratory failure, unspecified whether with hypoxia or hypercapnia (Acute) Past Medical History Medical History Acute and chronic respiratory failure with hypercapnia Acute and chronic respiratory failure, unspecified whether with hypoxia or hypercapnia Acute and chronic respiratory failure, unspecified whether with hypoxia or hypercapnia Asthma Bustos's esophagus Carpal tunnel syndrome of right wrist Chest discomfort Chronic idiopathic constipation Chronic renal failure, stage 2 (mild) Cocaine abuse COPD (chronic obstructive pulmonary disease) COPD exacerbation Crack cocaine use Depression Diabetes mellitus Encounter for preoperative pulmonary examination Gastroparesis GERD (gastroesophageal reflux disease) Hernia High triglycerides HTN (hypertension) Knee pain, bilateral Nausea & vomiting Obesity (BMI 30-39.9) Respiratory failure Smoker Family History Family History Father Heart disease HENRY (obstructive sleep apnea) Family history of breast cancer Mother Asthma Emphysema, unspecified Bronchitis Smoker Alcoholism Bone marrow disease Maternal Grandmother Diabetes Surgical History Surgical History (Updated 11/22/21 @ 10:10 by Jocy Luna RN) History of carpal tunnel release History of esophagogastroduodenoscopy (EGD) History of open reduction and internal fixation (ORIF) procedure History of pubovaginal sling History of umbilical hernia repair Hx of section Hx of cholecystectomy Hx of tubal ligation Social History Social History Household Members: Unknown / Unable to assess Housing: Unknown / Unable to assess Are you a primary career technical supervisor to a significant other at home: No Do you presently have visiting nurse or other home services: Yes (CHIEF OF VITAL STATISTICS-daughter) Unable to assess alcohol history related to: Unknown Alcohol intake: unknown Patient Tobacco Use Status: Current everyday Tobacco user Tobacco use type: Cigarette Cigarette Packs Per Day: 1 Cigarettes Per Day: 10 Years Smoked: 35 Second Hand Smoke Exposure: No Substance Use Type: Crack/Cocaine Advance Directives Date on File: 04/15/20 service: No Current occupational status: unemployed 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 [employer] Allergies Allergy/AdvReac Type Severity Reaction Status Date / Time doxycycline Allergy Severe Swelling Verified 11/20/21 10:43 [email or web address] [From CHANTIX] Allergy Severe ANAPHYLAXIS Verified 11/20/21 10:43 barium sulfate Allergy Intermediate angioedema Verified 11/20/21 10:43 azithromycin Allergy Mild Rash Verified 11/20/21 10:43 cetirizine Allergy Mild Rash Verified 11/20/21 10:43 famotidine Allergy Mild Rash Verified 11/20/21 10:43 linaclotide [Linzess] Allergy Mild Rash Verified 11/20/21 10:43 Exam Exam Date and Time: November 24, 2021 1248 Height,Weight and Vital Signs: Height 4 ft 11 in Weight 80.739 kg Narrative Narrative: EKG 10/2020 Vent. Rate : 102 BPM ? ? Atrial Rate : 102 BPM ?? P-R Int : 124 ms? QRS Dur : 082 ms ? ? QT Int : 342 ms ? ? ? P-R-T Axes : 079 134 058 degrees ?? QTc Int : 445 ms ? Sinus tachycardia Possible Anterior infarct , age undetermined but could be from body habitus and lead placement Borderline EKG When compared with ECG of 04-OCT-2020 15:41, QRS axis Shifted right Assessment and Plan Assessment Anesthesia Assessment: Chart Reviewed
[2021-11-28 07:02] VITALS: BMI 38.3
[2021-11-28 07:28] VITALS: BP 101/73; PULSE 97; RESP 18; TEMP 36.1; O2SAT 98
[2021-11-28 07:37] LABS: Amphetamine Screen Urine Not Detected (Not Detect); Barbiturates, Urine Not Detected (Not Detect); Benzodiazepines Screen Urine Not Detected (Not Detect); Cannabinoid Screen Urine Not Detected (Not Detect); Cocaine Screen Urine POSITIVE (Not Detect); Fentanyl, urine Not Detected (Not Detect); Opiate Screen Urine Not Detected (Not Detect); Phencyclidine Screen Urine Not Detected (Not Detect)
--- NOTE | 2021-11-28 07:47 | PC.NURSE ---
Dr. Pulliam & Dr. Frazier in to see pt. urine drug screen high cocaine
[2021-11-28 14:43] LABS: Glucose, Whole Blood 184 mg/dL (60-115)
== END ==
PROVIDERS: Nurse Practitioner; PCP Nurse Practitioner Family; Visit Provider Internal Medicine Gastroenterology
DX: R13.10 Dysphagia, unspecified (principal); Z53.09 Procedure and treatment not carried out because of other contraindication; F14.10 Cocaine abuse, uncomplicated; F15.90 Other stimulant use, unspecified, uncomplicated; E11.9 Type 2 diabetes mellitus without complications; I10 Essential (primary) hypertension; F17.210 Nicotine dependence, cigarettes, uncomplicated
CPT/HCPCS: 80307; 82947; J2250

== ENCOUNTER 2022-02-06 11:42 | Emergency (ER) | payer OTHER, SELFPAY ==
--- NOTE | ~2022-02-06 | XR_ITS ---
EXAMINATION: XR CHEST CLINICAL INFORMATION: Shortness of breath. COPD. COMPARISON: Chest done on 11/03/2020. TECHNIQUE: Frontal view of the chest was obtained, total of 2 images.. FINDINGS: No significant abnormality is noted involving the heart, lungs, mediastinum, bony thorax or soft tissues. Old healed rib fractures are noted within the left hemithorax. XR/XR chest 1V IMPRESSION: No radiographic evidence of acute cardiopulmonary disease.
[2022-02-06 11:43] VITALS: BP 118/68; PULSE 84; O2SAT 88
[2022-02-06 11:44] VITALS: BP 133/80; PULSE 91; RESP 24; TEMP 36.6; O2SAT 97; BMI 38.3
--- NOTE | 2022-02-06 11:48 | ECG_ITS ---
Test Reason : sob Blood Pressure : / mmHG Vent. Rate : 083 BPM Atrial Rate : 083 BPM P-R Int : 128 ms QRS Dur : 084 ms QT Int : 372 ms P-R-T Axes : 008 143 068 degrees QTc Int : 437 ms Normal sinus rhythm Right axis deviation Low voltage QRS Abnormal ECG When compared with ECG of 03-NOV-2020 19:28, Nonspecific T wave abnormality now evident in Anterior leads Referred By: Ly Bazan Electronically Signed By:DAVIS WALKER
[2022-02-06] MEDS: Albuterol Sulfate (0.083%) 2.5 MG/3 ML VIAL.NEB 10 MG INHALE (11:51)
[2022-02-06 11:53] VITALS: PULSE 83; RESP 22; O2SAT 96
--- NOTE | 2022-02-06 11:54 | ED_ITS ---
HPI - URI/Sore Throat General Chief Complaint: Upper Respiratory Symptoms Stated Complaint: DIFFICULTY BREATHING Time Seen by Provider: 02/06/22 11:47 Source: patient and EMS Mode of arrival: EMS Limitations: no limitations History of Present Illness HPI Narrative: Patient comes to the emergency room complaining of shortness of breath. Patient is known to have asthma and COPD, continue smoking, does not use oxygen at home. Patient states that she ran out of her inhalers at home, has been using DuoNebs at home without significant relief. Patient complaining of a bit more coughing than her baseline. Nonproductive. Per EMS, patient's oxygen saturation was in the high 80s, patient was started on a non-rebreather at 15 L. Here in the emergency room when patient arrived patient speaking in full sentences, switched to nasal cannula. Patient denies chest pain, only tightness with breathing. Related Data Previous Rx's Medication Instructions Recorded alcohol swabs 1 pad topical DAILY #100 ea 09/07/20 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 meter (FreeStyle #1 ea 01/20/21 Lite Meter kit) lancets 28 gauge (FreeStyle #100 ea 01/20/21 Lancets) ipratropium 0.5 mg-albuterol 3 mg 3 ml inhalation Q6-8H PRN for 04/17/21 (2.5 mg base)/3 mL nebulization wheezing 30 days #180 mL soln lidocaine 5 % topical ointment 1 appl topical BEDTIME #30 grams 04/24/21 diclofenac sodium 1 % topical gel 2 g topical BID joint pain #100 05/23/21 (Voltaren Arthritis Pain) grams glipizide 5 mg tablet 5 mg PO DAILY 30 days #30 tabs 09/09/21 aspirin 81 mg tablet,delayed 81 mg PO DAILY 90 days #90 tabs 09/20/21 release blood sugar diagnostic (FreeStyle #100 ea 09/27/21 Lite Strips) dexlansoprazole 60 mg 60 mg PO DAILY #30 caps 10/09/21 capsule,biphase delayed release theophylline 400 mg 400 mg PO DAILY #30 tabs 10/09/21 tablet,extended release 24 hr atorvastatin 80 mg tablet 80 mg PO DAILY #30 tabs 10/14/21 albuterol sulfate 90 mcg/actuation 2 puff inhalation Q6H PRN 10/18/21 aerosol inhaler (ProAir HFA) shortness of breath or wheezing 30 days #8.5 grams dicyclomine 10 mg capsule 20 mg PO QID PRN for cramps #720 11/07/21 caps gabapentin 800 mg tablet 800 mg PO QID 30 days #120 tabs 11/13/21 lubiprostone 24 mcg capsule 24 mcg PO BID #60 caps 12/05/21 bupropion HCl 300 mg 24 hr tablet, 300 mg PO QAM #30 tabs 12/06/21 extended release prednisone 10 mg tablet 40 mg PO DAILY 5 days #20 tabs 12/06/21 dulaglutide 0.75 mg/0.5 mL 0.75 mg (0.5 mL) subcut QWEEK 30 12/10/21 subcutaneous pen injector days #2.5 mL (Trulicity) prednisone 5 mg tablet 5 mg PO BID COPD EXCERBATION 1 12/22/21 week #14 tabs losartan 25 mg tablet 25 mg PO DAILY #30 tabs 01/09/22 tiotropium 2.5 mcg-olodaterol 2.5 2 puff PO DAILY #4 mL 01/09/22 mcg/actuation mist for inhalation (Stiolto Respimat) tizanidine 4 mg tablet 4 mg PO BID PRN muscle spasm 30 01/15/22 days #60 tabs ibuprofen 800 mg tablet 800 mg PO BID PRN pain 30 days #90 02/04/22 tabs albuterol sulfate 90 mcg/actuation 2 puff inhalation Q4-6H PRN 02/06/22 aerosol inhaler shortness of breath or wheezing #8.5 grams furosemide 20 mg tablet 20 mg PO BID #180 tabs 02/06/22 prednisone 50 mg tablet 50 mg PO DAILY #4 tabs 02/06/22 Allergies Allergy/AdvReac Type Severity Reaction Status Date / Time doxycycline Allergy Severe Swelling Verified 11/28/21 07:24 varenicline [From CHANTIX] Allergy Severe ANAPHYLAXIS Verified 11/28/21 07:24 barium sulfate Allergy Intermediate angioedema Verified 11/28/21 07:24 azithromycin Allergy Mild Rash Verified 11/28/21 07:24 cetirizine Allergy Mild Rash Verified 11/28/21 07:24 famotidine Allergy Mild Rash Verified 11/28/21 07:24 linaclotide [Linzess] Allergy Mild Rash Verified 05/31/22 07:24 Review of Systems Review of Systems: Constitutional : No Weight loss, No Fever, No Chills, No Night Sweats, No Fatigue, No Malaise ENT/Mouth : No Hearing loss, No Ear Pain, No Nasal Congestion, No Sinus Pain, No Hoarseness, No sore throat, No Rhinorrhea, No Swallowing Difficulty Eyes: No Eye Pain, No Swelling, complaining of redness in the left eye, No Foreign Body, No Discharge, No Vision Changes Cardiovascular : No Chest Pain, No SOB, No Dyspnea on Exertion, No Orthopnea, No Edema, No Palpitations Respiratory : Complaining of worsening dry cough, wheezing and shortness of breath Gastrointestinal : No Nausea, No Vomiting, No Diarrhea, No Constipation, No abdominal Pain, No Hematochezia, No Melena Genitourinary : no irregular bleeding, No Dysuria, No Urinary Frequency, No Hematuria, No Urinary Incontinence, No Urgency, No Flank Pain, No Urinary Flow Changes, No Hesitancy Musculoskeletal : No joint pain, No Myalgias, No Joint Swelling Skin : No Skin Lesions, No rash Neuro : No Weakness, No Numbness, No Paresthesias, No Loss of Consciousness, No Dizziness, No Headache Psych : No Anxiety/Panic, No Depression, No SI/HI/AH/VH, No Social Issues, Heme/Lymph: No Bruising, No Bleeding,No Lymphadenopathy Endocrine : No Polyuria, No Polydipsia, No Temperature Intolerance PMFSH Past Medical History Medical History Acute and chronic respiratory failure with hypercapnia Acute and chronic respiratory failure, unspecified whether with hypoxia or hypercapnia Acute and chronic respiratory failure, unspecified whether with hypoxia or hypercapnia Asthma Bustos's esophagus Carpal tunnel syndrome of right wrist Chest discomfort Chronic idiopathic constipation Chronic renal failure, stage 2 (mild) Cocaine abuse COPD (chronic obstructive pulmonary disease) COPD exacerbation Crack cocaine use Depression Diabetes mellitus Encounter for preoperative pulmonary examination Gastroparesis GERD (gastroesophageal reflux disease) Hernia High triglycerides HTN (hypertension) Knee pain, bilateral Nausea & vomiting Obesity (BMI 30-39.9) Respiratory failure Smoker Surgical History History of carpal tunnel release History of esophagogastroduodenoscopy (EGD) History of open reduction and internal fixation (ORIF) procedure History of pubovaginal sling History of umbilical hernia repair Hx of section Hx of cholecystectomy Hx of tubal ligation Family History Family History Father Heart disease HENRY (obstructive sleep apnea) Family history of breast cancer Mother Asthma Emphysema, unspecified Bronchitis Smoker Alcoholism Bone marrow disease Maternal Grandmother Diabetes Social History Social History Household Members: Unknown / Unable to assess Housing: Unknown / Unable to assess Are you a primary zoo caretaker to a significant other at home: No Do you presently have visiting nurse or other home services: Yes (HEALTHCARE ADMINISTRATOR-daughter) Unable to assess alcohol history related to: Unknown Alcohol intake: unknown Patient Tobacco Use Status: Current everyday Tobacco user Tobacco use type: Cigarette Cigarette Packs Per Day: 10 Cigarettes Per Day: 200.0 Years Smoked: 35 Second Hand Smoke Exposure: No Substance Use Type: Crack/Cocaine Advance Directives: Yes Advance Directives Information Provided: Yes Advance Directives on File: No Advance Directives Date on File: 04/15/20 service: No Current occupational status: unemployed 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 Oriented X3. No acute distress. Eyes: Pupils equal, round and reactive to light. ENT: Pharynx normal. Neck: Normal inspection. Neck supple. No lymph nodes noted. No crepitus CVS: Normal heart rate and rhythm. Pulses normal. Normal S1 and S2 Respiratory: Mild respiratory distress, speaking in full sentences, bilateral d iffuse wheezing, decreased air movement, oxygen saturation 97% on nasal cannula Abdomen: Soft and nontender. No rigidity. No distention. Skin: Skin warm and dry. Normal skin color. Normal skin turgor. Extremities: No lower extremity edema. No Lacerations. No Rash Neuro: Oriented X 3. No motor deficit. No sensory deficit. Moving all extremities. No slurred speech. CN 2 through 12 grossly intact Psych: calm, cooperative, normal affect Course Course Course Narrative: Respiratory starting an hour long albuterol treatment. Solu-Medrol, magnesium and fluids being started. All of patient's labs and imaging pending. I discussed labs and imaging with the patient, seems that the patient had an asthma exacerbation rather than a COPD exacerbation. Antibiotics are not indicated, white blood cell count at baseline, lactic acid within normal limits. On physical exam prior to discharge, patient is moving air within normal limits, oxygen saturation 96% on room air, minimal wheezing bilaterally. Patient was walked around the emergency room, oxygen saturation remained at 90% and above. Patient feels well to go home. MDM - URI/Sore Throat Lab Data Result diagrams: 02/06/22 12:09 02/06/22 11:58 Labs: Lab Results 02/06/22 02/06/22 02/06/22 Range/Units 11:58 11:58 11:58 WBC (4.8-10.8) X10*3/uL RBC (4.20-5.50) X10*6/uL Hgb (12.0-16.0) g/dl Hct (37.0-47.0) % MCV (80.0-98.0) fL MCH (27.0-33.0) pg MCHC (31.0-35.0) g/dl RDW (11.0-16.0) % Plt Count (160-400) X10*3/uL MPV (9.4-12.3) fL Immature Gran % (Auto) (0.0-0.4) % Neut % (Auto) (45-73) % Lymph % (Auto) (20-40) % Barren % (Auto) (2-11) % Eos % (Auto) (0-4) % Baso % (Auto) (0-2) % Lymph # (Auto) (1.2-4.9) X10*3/uL Barren # (Auto) (0.1-1.2) X10*3/uL Eos # (Auto) (0.0-0.4) X10*3/uL Baso # (Auto) (0.0-0.2) X10*3/uL Abs Immat Gran (auto) (0.00-0.03) X10*3/uL Absolute Neuts (auto) (2.0-8.3) x10*3/uL Absolute Nucleated RBC (0.0-0.012) X10*3/uL Nucleated RBC % (auto) (0.0-0.2) /100WBC PT (10.0-13.1) SEC INR (0.9-1.1) VBG pH (7.32-7.43) VBG pCO2 mmHg VBG pO2 mmHg VBG HCO3 (22-26) mmol/L VBG O2 Saturation % VBG Base Excess mmol/L Sodium 141 (135-145) mmol/L Potassium 4.7 D (3.3-5.1) mmol/L Chloride 101 (96-108) mmol/L Carbon Dioxide 30 H (22-29) mmol/L Anion Gap 15 (12-20) BUN 13 (9-16) mg/dL Creatinine 1.29 (0.5-1.4) mg/dL Estim Creat Clear Calc 48.0 Estimated GFR 43 Random Glucose 109 (60-115) mg/dL Lactic Acid (0.5-2.0) mmol/L Calcium 8.7 (8.4-10.2) mg/dL Total Bilirubin < 0.2 (0.0-1.0) mg/dL Direct Bilirubin < 0.2 (0.0-0.5) mg/dL AST 8 (5-31) U/L ALT 7 (0-31) U/L Alkaline Phosphatase 114 D (39-117) U/L Troponin I High Sens 8.5 (<3.5-17.0) ng/L B-Natriuretic Peptide (<100) pg/mL Total Protein 6.6 (6.5-8.0) g/dL Albumin 4.0 (3.5-5.0) g/dL COVID-19 ([facility]) Negative (Negative) COVID-19 Clin Com See Note 02/06/22 02/06/22 02/06/22 Range/Units 11:58 11:59 11:59 WBC (4.8-10.8) X10*3/uL RBC (4.20-5.50) X10*6/uL Hgb (12.0-16.0) g/dl Hct (37.0-47.0) % MCV (80.0-98.0) fL MCH (27.0-33.0) pg MCHC (31.0-35.0) g/dl RDW (11.0-16.0) % Plt Count (160-400) X10*3/uL MPV (9.4-12.3) fL Immature Gran % (Auto) (0.0-0.4) % Neut % (Auto) (45-73) % Lymph % (Auto) (20-40) % Barren % (Auto) (2-11) % Eos % (Auto) (0-4) % Baso % (Auto) (0-2) % Lymph # (Auto) (1.2-4.9) X10*3/uL Barren # (Auto) (0.1-1.2) X10*3/uL Eos # (Auto) (0.0-0.4) X10*3/uL Baso # (Auto) (0.0-0.2) X10*3/uL Abs Immat Gran (auto) (0.00-0.03) X10*3/uL Absolute Neuts (auto) (2.0-8.3) x10*3/uL Absolute Nucleated RBC (0.0-0.012) X10*3/uL Nucleated RBC % (auto) (0.0-0.2) /100WBC PT 11.9 (10.0-13.1) SEC INR 1.0 (0.9-1.1) VBG pH (7.32-7.43) VBG pCO2 mmHg VBG pO2 mmHg VBG HCO3 (22-26) mmol/L VBG O2 Saturation % VBG Base Excess mmol/L Sodium (135-145) mmol/L Potassium (3.3-5.1) mmol/L Chloride (96-108) mmol/L Carbon Dioxide (22-29) mmol/L Anion Gap (12-20) BUN (9-16) mg/dL Creatinine (0.5-1.4) mg/dL Estim Creat Clear Calc Estimated GFR Random Glucose (60-115) mg/dL Lactic Acid 0.9 (0.5-2.0) mmol/L Calcium (8.4-10.2) mg/dL Total Bilirubin (0.0-1.0) mg/dL Direct Bilirubin (0.0-0.5) mg/dL AST (5-31) U/L ALT (0-31) U/L Alkaline Phosphatase (39-117) U/L Troponin I High Sens (<3.5-17.0) ng/L B-Natriuretic Peptide 23 (<100) pg/mL Total Protein (6.5-8.0) g/dL Albumin (3.5-5.0) g/dL COVID-19 ([facility]) (Negative) COVID-19 Clin Com 02/06/22 02/06/22 Range/Units 12:04 12:09 WBC 11.3 H (4.8-10.8) X10*3/uL RBC 4.87 (4.20-5.50) X10*6/uL Hgb 11.5 L (12.0-16.0) g/dl Hct 38.6 (37.0-47.0) % MCV 79.3 L (80.0-98.0) fL MCH 23.6 L (27.0-33.0) pg MCHC 29.8 L (31.0-35.0) g/dl RDW 16.9 H (11.0-16.0) % Plt Count 441 H (160-400) X10*3/uL MPV 8.5 L (9.4-12.3) fL Immature Gran % (Auto) 0.2 (0.0-0.4) % Neut % (Auto) 65.4 (45-73) % Lymph % (Auto) 26.9 (20-40) % Barren % (Auto) 5.9 (2-11) % Eos % (Auto) 1.2 (0-4) % Baso % (Auto) 0.4 (0-2) % Lymph # (Auto) 3.0 (1.2-4.9) X10*3/uL Barren # (Auto) 0.7 (0.1-1.2) X10*3/uL Eos # (Auto) 0.1 (0.0-0.4) X10*3/uL Baso # (Auto) 0.0 (0.0-0.2) X10*3/uL Abs Immat Gran (auto) 0.02 (0.00-0.03) X10*3/uL Absolute Neuts (auto) 7.4 (2.0-8.3) x10*3/uL Absolute Nucleated RBC 0.000 (0.0-0.012) X10*3/uL Nucleated RBC % (auto) 0.0 (0.0-0.2) /100WBC PT (10.0-13.1) SEC INR (0.9-1.1) VBG pH 7.36 (7.32-7.43) VBG pCO2 52 mmHg VBG pO2 58 mmHg VBG HCO3 30 H (22-26) mmol/L VBG O2 Saturation 87.0 % VBG Base Excess 3.7 mmol/L Sodium (135-145) mmol/L Potassium (3.3-5.1) mmol/L Chloride (96-108) mmol/L Carbon Dioxide (22-29) mmol/L Anion Gap (12-20) BUN (9-16) mg/dL Creatinine (0.5-1.4) mg/dL Estim Creat Clear Calc Estimated GFR Random Glucose (60-115) mg/dL Lactic Acid (0.5-2.0) mmol/L Calcium (8.4-10.2) mg/dL Total Bilirubin (0.0-1.0) mg/dL Direct Bilirubin (0.0-0.5) mg/dL AST (5-31) U/L ALT (0-31) U/L Alkaline Phosphatase (39-117) U/L Troponin I High Sens (<3.5-17.0) ng/L B-Natriuretic Peptide (<100) pg/mL Total Protein (6.5-8.0) g/dL Albumin (3.5-5.0) g/dL COVID-19 ([facility]) (Negative) COVID-19 Clin Com Imaging Data Chest x-ray: Radiologist's impression: FINDINGS: No significant abnormality is noted involving the heart, lungs, mediastinum, bony thorax or soft tissues. Old healed rib fractures are noted within the left hemithorax. XR/XR chest 1V IMPRESSION: No radiographic evidence of acute cardiopulmonary disease. Discharge Plan Discharge Clinical Impression: Asthma exacerbation Patient Disposition: Home, Self-Care Instructions: Asthma (ED) Additional Instructions: Please follow-up with your primary care physician tomorrow. If you have any worsening or new symptoms, please return to the emergency room or call 911 Prescriptions: New albuterol sulfate 90 mcg/actuation HFA aerosol inhaler 2 puff inhalation Q4-6H PRN (Reason: shortness of breath or wheezing) Qty: 8.5 3RF prednisone 50 mg tablet 50 mg PO DAILY Qty: 4 0RF No Action alcohol swabs Pads, Medicated 1 pad topical DAILY Qty: 100 1RF Rx Instructions: Use to check blood sugar daily or if symptomatic hypo/hypergylcemia (DME) 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 meter [FreeStyle Lite Meter] Kit See Rx Instructions .ROUTE .MEDSUPPLY Qty: 1 0RF Rx Instructions: Use to check blood sugar daily or if symptomatic for hypo/hyperglycemia (DME) lancets [FreeStyle Lancets] 28 gauge misc See Rx Instructions .ROUTE .MEDSUPPLY Qty: 100 1RF Rx Instructions: Use to check blood sugar daily or if symptomatic hypo/hypergylcemia ipratropium-albuterol 0.5 mg-3 mg(2.5 mg base)/3 mL solution for nebulization 3 ml inhalation Q6-8H PRN (Reason: for wheezing) 30 Days Qty: 180 6RF lidocaine 5 % ointment 1 appl topical BEDTIME Qty: 30 1RF glipizide 5 mg tablet 5 mg PO DAILY 30 Days Qty: 30 4RF aspirin 81 mg tablet,delayed release (DR/EC) 81 mg PO DAILY 90 Days Qty: 90 0RF (DME) FreeStyle Lite Strips Strip See Rx Instructions .ROUTE .MEDSUPPLY Qty: 100 1RF Rx Instructions: Use to check blood sugar daily or if symptomatic hypo/hypergylcemia theophylline 400 mg tablet extended release 24 hr 400 mg PO DAILY Qty: 30 6RF dexlansoprazole 60 mg capsule,biphase delayed releas 60 mg PO DAILY Qty: 30 6RF atorvastatin 80 mg tablet 80 mg PO DAILY Qty: 30 3RF albuterol sulfate [ProAir HFA] 90 mcg/actuation HFA aerosol inhaler 2 puff inhalation Q6H PRN (Reason: shortness of breath or wheezing) 30 Days Qty: 8.5 4RF Rx Instructions: proair dicyclomine 10 mg capsule 20 mg PO QID PRN (Reason: for cramps) Qty: 720 1RF gabapentin 800 mg tablet 800 mg PO QID 30 Days Qty: 120 2RF lubiprostone 24 mcg capsule 24 mcg PO BID Qty: 60 3RF bupropion HCl 300 mg tablet extended release 24 hr 300 mg PO QAM Qty: 30 2RF prednisone 10 mg tablet 40 mg PO DAILY 5 Days Qty: 20 0RF Trulicity 0.75 mg/0.5 mL pen injector 0.75 mg subcut QWEEK 30 Days Qty: 2.5 5RF prednisone 5 mg tablet 5 mg PO BID 7 Days Qty: 14 0RF Rx Instructions: 1 tab po bid for 5 days then 1 tab po daily for 5 days Stiolto Respimat 2.5-2.5 mcg/actuation mist 2 puff PO DAILY Qty: 4 6RF losartan 25 mg tablet 25 mg PO DAILY Qty: 30 3RF tizanidine 4 mg tablet 4 mg PO BID PRN (Reason: muscle spasm) 30 Days Qty: 60 0RF ibuprofen 800 mg tablet 800 mg PO BID PRN (Reason: pain) 30 Days Qty: 90 1RF furosemide 20 mg tablet 20 mg PO BID Qty: 180 2RF diclofenac sodium [Voltaren Arthritis Pain] 1 % gel 2 g topical BID Qty: 100 0RF Rx Instructions: apply to wrist or hand; for hand includes palm/fingers/back of hand
[2022-02-06 12:08] VITALS: O2SAT 96
[2022-02-06 12:11] LABS: VBG Base Excess 3.7 mmol/L; VBG HCO3 30 mmol/L (22-26); VBG pCO2 52 mmHg; VBG pH 7.36 (7.32-7.43); VBG pO2 58 mmHg
[2022-02-06 12:14] LABS: Venous Blood Gas Refer to POC result
[2022-02-06 12:14] LABS: MANUAL DIFF FLAG NO
[2022-02-06 12:15] LABS: Prothrombin Time 11.9 SEC (10.0-13.1)
[2022-02-06 12:17] LABS: Basophils Percent Auto 0.4 % (0-2); Eosinophils Absolute Auto 0.1 X10*3/uL (0.0-0.4); Eosinophils Percent Auto 1.2 % (0-4); Hematocrit 38.6 % (37.0-47.0); Hemoglobin 11.5 g/dl (12.0-16.0); Imm Gran Abs Auto 0.02 X10*3/uL (0.00-0.03); Imm Gran Pct Auto 0.2 % (0.0-0.4); Lymphocytes Percent Auto 26.9 % (20-40); Mean Corpuscular HGB Conc 29.8 g/dl (31.0-35.0); Mean Corpuscular Hemoglobin 23.6 pg (27.0-33.0); Mean Corpuscular Volume 79.3 fL (80.0-98.0); Mean Platelet Volume 8.5 fL (9.4-12.3); Monocytes Absolute Auto 0.7 X10*3/uL (0.1-1.2); Monocytes Percent Auto 5.9 % (2-11); Neutrophils Absolute Auto 7.4 x10*3/uL (2.0-8.3); Neutrophils Percent Auto 65.4 % (45-73); Platelet Count 441 X10*3/uL (160-400); Red Blood Count 4.87 X10*6/uL (4.20-5.50); Red Cell Distribution Width 16.9 % (11.0-16.0); White Blood Count 11.3 X10*3/uL (4.8-10.8)
[2022-02-06] MEDS: Magnesium Sulfate/H2O 2 GM/50 ML PIGGYBACK IV (12:21)
[2022-02-06] MEDS: methylPREDNISolone Sod Succ 125 MG/2 ML VIAL IVPUSH (12:21)
[2022-02-06] MEDS: 0.9 % Sodium Chloride 1,000 ML 999 ML IVCONT (12:21)
[2022-02-06 12:27] LABS: COVID-19 Test Negative (Negative)
[2022-02-06 12:28] LABS: Lactic Acid 0.9 mmol/L (0.5-2.0)
[2022-02-06 12:36] LABS: B Type Natriuretic Peptide 23 pg/mL (<100); Troponin-I High Sensitivity 8.5 ng/L (<3.5-17.0)
[2022-02-06 12:37] LABS: Alanine Aminotransferase 7 U/L (0-31); Alkaline Phosphatase 114 U/L (39-117); Anion Gap 15 (12-20); Aspartate Amino Transferase 8 U/L (5-31); Bilirubin Direct < 0.2 mg/dL (0.0-0.5); Bilirubin Total < 0.2 mg/dL (0.0-1.0); Blood Urea Nitrogen 13 mg/dL (9-16); Calcium 8.7 mg/dL (8.4-10.2); Carbon Dioxide 30 mmol/L (22-29); Chloride 101 mmol/L (96-108); Estimated Glomerular Filt Rate 43; Glucose Random 109 mg/dL (60-115); Potassium 4.7 mmol/L (3.3-5.1); Sodium 141 mmol/L (135-145); Total Protein 6.6 g/dL (6.5-8.0)
[2022-02-06 14:12] VITALS: BP 155/66; PULSE 85; RESP 14; O2SAT 94
[2022-02-06] MEDS: Erythromycin Base 0.5% Oph Oin 1 GM TUBE 1 CM EYE-BOTH (15:16)
== END 2022-02-06 15:52 | disposition home or self-care (01) ==
PROVIDERS: Emergency Provider Emergency Medicine; PCP Nurse Practitioner Family
DX: J45.901 Unspecified asthma with (acute) exacerbation (principal); Z20.822 Contact with and (suspected) exposure to COVID-19; R06.02 Shortness of breath; F17.210 Nicotine dependence, cigarettes, uncomplicated
CPT/HCPCS: 36415; 71045; 80048; 80076; 82803; 83605; 83880; 84484; 85025; 85610; 87040; 87635; 93005; 94640; 96374; 96375; 99284; 99285; J2930; J3475

== ENCOUNTER 2022-03-20 23:35 | Emergency (ER) | payer OTHER, SELFPAY ==
[2022-03-21 00:39] VITALS: BP 155/82; PULSE 98; O2SAT 93
== END 2022-03-21 01:48 | disposition left against medical advice (07) ==
PROVIDERS: Emergency Provider Emergency Medicine
DX: R06.02 Shortness of breath (principal)

== ENCOUNTER → 2022-04-06 14:06 | Outpatient (BNVA) | payer OTHER, SELFPAY | PROVIDERS: Visit Provider Internal Medicine Pulmonary Disease | DX: J44.0 Chronic obstructive pulmonary disease with (acute) lower respiratory infection (principal); G47.33 Obstructive sleep apnea (adult) (pediatric) | CPT/HCPCS: 99212 ==

== ENCOUNTER 2022-04-16 14:57 | Inpatient (IN) | payer OTHER, SELFPAY ==
--- NOTE | ~2022-04-16 | XR_ITS ---
EXAMINATION: XR CHEST CLINICAL INFORMATION: SOB. COMPARISON: Chest 02/06/2022 TECHNIQUE: Frontal view of the chest was obtained. FINDINGS: The lungs are hyperinflated but clear of acute process. Heart size and pulmonary vascularity is normal. There are multiple old view fracture involving the left mid and lower ribs. No aggressive lytic or sclerotic process seen. XR/XR chest 1V IMPRESSION: No acute cardiopulmonary process seen. No major change compared to 02/06/2022
[2022-04-16 15:09] VITALS: BP 117/74; BP 176/92; PULSE 103; PULSE 94; RESP 21; TEMP 36.4; O2SAT 92; O2SAT 99; BMI 37.3
[2022-04-16 15:16] VITALS: BP 124/70; PULSE 94; RESP 15; TEMP 36.6; O2SAT 93
--- NOTE | 2022-04-16 15:38 | ED.GENADULT ---
HPI - General Adult General Chief complaint: Dyspnea Stated complaint: Diff Breathing Time Seen by Provider: 04/16/22 15:32 Source: patient Mode of arrival: ambulatory History of Present Illness HPI narrative: 51-year-old female with a past medical history of active 40+ pack-year smoker, obesity, HENRY on CPAP, COPD, presenting to the ED complaining of SOB x1 week and nonproductive cough. Recently seen by her internal revenue agent on 04/06/22 and finished course of Levaquin and Prednisone without relief. Denies chest pain, abdominal pain, nausea/vomiting, pedal edema, recent travel Onset (ago): week(s) Related Data Previous Rx's Medication Instructions Recorded alcohol swabs 1 pad topical DAILY #100 ea 09/07/20 lancets 28 gauge (FreeStyle #100 ea 01/20/21 Lancets) ipratropium 0.5 mg-albuterol 3 mg 3 ml inhalation Q6-8H PRN for 04/17/21 (2.5 mg base)/3 mL nebulization wheezing 30 days #180 mL soln lidocaine 5 % topical ointment 1 appl topical BEDTIME #30 grams 04/24/21 diclofenac sodium 1 % topical gel 2 g topical BID joint pain #100 05/23/21 (Voltaren Arthritis Pain) grams dexlansoprazole 60 mg 60 mg PO DAILY #30 caps 10/09/21 capsule,biphase delayed release dicyclomine 10 mg capsule 20 mg PO QID PRN for cramps #720 11/07/21 caps lubiprostone 24 mcg capsule 24 mcg PO BID #60 caps 12/05/21 dulaglutide 0.75 mg/0.5 mL 0.75 mg (0.5 mL) subcut QWEEK 30 12/10/21 subcutaneous pen injector days #2.5 mL (Trulicity) losartan 25 mg tablet 25 mg PO DAILY #30 tabs 01/09/22 tiotropium 2.5 mcg-olodaterol 2.5 2 puff PO DAILY #4 mL 01/09/22 mcg/actuation mist for inhalation (Stiolto Respimat) furosemide 20 mg tablet 20 mg PO BID #180 tabs 02/06/22 gabapentin 800 mg tablet 800 mg PO QID 30 days #120 tabs 02/14/22 aspirin 81 mg tablet,delayed 81 mg PO DAILY 90 days #90 tabs 02/22/22 release glipizide 5 mg tablet 5 mg PO DAILY 30 days #30 tabs 02/22/22 blood sugar diagnostic (FreeStyle #100 ea 03/01/22 Lite Strips) 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 meter (FreeStyle #1 ea 03/01/22 Lite Meter kit) bupropion HCl 300 mg 24 hr tablet, 300 mg PO QAM #30 tabs 03/05/22 extended release atorvastatin 80 mg tablet 80 mg PO DAILY #30 tabs 03/08/22 albuterol sulfate 90 mcg/actuation 2 puff inhalation Q6H PRN 04/06/22 aerosol inhaler (ProAir HFA) shortness of breath or wheezing 30 days #8.5 grams ibuprofen 800 mg tablet 800 mg PO BID PRN pain 30 days #90 04/06/22 tabs levofloxacin 750 mg tablet 750 mg PO DAILY 7 days #7 tabs 04/06/22 prednisone 10 mg tablet 40 mg PO DAILY 7 days #28 tabs 04/06/22 theophylline 400 mg 400 mg PO BID 30 days #60 tabs 04/06/22 tablet,extended release 24 hr tizanidine 4 mg tablet 4 mg PO BID PRN muscle spasm 30 04/08/22 days #60 tabs Allergies Allergy/AdvReac Type Severity Reaction Status Date / Time doxycycline Allergy Severe Swelling Verified 04/11/22 16:21 varenicline [From CHANTIX] Allergy Severe ANAPHYLAXIS Verified 04/11/22 16:21 barium sulfate Allergy Intermediate angioedema Verified 04/11/22 16:21 azithromycin Allergy Mild Rash Verified 04/11/22 16:21 cetirizine Allergy Mild Rash Verified 04/11/22 16:21 famotidine Allergy Mild Rash Verified 04/11/22 16:21 linaclotide [Linzess] Allergy Mild Rash Verified 04/11/22 16:21 Review of Systems Review of Systems: Constitutional: No Fever, No Chills, No Fatigue, No Malaise ENT/Mouth: No Ear Pain, No Nasal Congestion, No Sinus Pain, No sore throat, No Rhinorrhea, No Swallowing Difficulty Eyes: No Eye Pain, No Swelling, No Redness, No Vision Changes Cardiovascular: No Chest Pain, + SOB, + Dyspnea on Exertion, No Orthopnea, No Edema, No Palpitations Respiratory: + Cough, No Sputum, + Wheezing, + Dyspnea Gastrointestinal: No Nausea, No Vomiting, No Diarrhea, No Constipation, No Abdominal pain Genitourinary: No Dysuria, No Urinary Frequency, No Hematuria, No Flank Pain Musculoskeletal: No joint pain, No Myalgias, No Joint Swelling Skin: No Skin Lesions, No rash Neuro: No Weakness, No Numbness, No Dizziness, No Headache Yes all other systems are reviewed and are negative Constitutional: Constitutional: Reports as per [facility] Past Medical History Attestation statement: The following information was validated with the patient. Medical History Acute and chronic respiratory failure with hypercapnia Acute and chronic respiratory failure, unspecified whether with hypoxia or hypercapnia Acute and chronic respiratory failure, unspecified whether with hypoxia or hypercapnia Asthma Bustos's esophagus Carpal tunnel syndrome of right wrist Chest discomfort Chronic idiopathic constipation Chronic renal failure, stage 2 (mild) Cocaine abuse COPD (chronic obstructive pulmonary disease) COPD exacerbation Crack cocaine use Depression Diabetes mellitus Encounter for preoperative pulmonary examination Gastroparesis GERD (gastroesophageal reflux disease) Hernia High triglycerides HTN (hypertension) Knee pain, bilateral Nausea & vomiting Obesity (BMI 30-39.9) Respiratory failure Smoker Surgical History History of carpal tunnel release History of esophagogastroduodenoscopy (EGD) History of open reduction and internal fixation (ORIF) procedure History of pubovaginal sling History of umbilical hernia repair Hx of section Hx of cholecystectomy Hx of tubal ligation Family History Family History Father Heart disease HENRY (obstructive sleep apnea) Family history of breast cancer Mother Asthma Emphysema, unspecified Bronchitis Smoker Alcoholism Bone marrow disease Maternal Grandmother Diabetes Social History Social History Household Members: Unknown / Unable to assess Housing: Unknown / Unable to assess Are you a primary healthcare applications analyst to a significant other at home: No Do you presently have visiting nurse or other home services: Yes ([employer]PRESENTAT[employer]-daughter) Unable to assess alcohol history related to: Unknown Alcohol intake: never Patient Tobacco Use Status: Current everyday Tobacco user Tobacco use type: Cigarette Cigarette Packs Per Day: 10 Cigarettes Per Day: 200.0 Years Smoked: 35 Second Hand Smoke Exposure: No Use of substances other than those prescribed or required for medical reasons: Yes Substance Use Type: Crack/Cocaine Substance Use Frequency: Occasionally Substance Use Frequency Other:: once every few months Any prior treatment program specific to substance use: No Advance Directives: Yes Advance Directives on File: Yes Advance Directives Date on File: 04/15/20 Patient : No service: No Current occupational status: unemployed 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 Physical Exam ED Vital Signs: Vital Signs - 24 hr 04/16/22 15:09 04/16/22 15:16 04/16/22 15:54 Temperature 97.6 F 97.8 F Pulse Rate 94 94 100 Respiratory Rate 21 H 15 14 Blood Pressure 117/74 124/70 Pulse Oximetry 92 93 Oxygen Delivery Method Room Air Room Air BMI result Body Mass Index 37.3 Const General: cooperative, healthy appearing and no acute distress Orientation/consciousness: patient oriented x3 Limitations: no limitations HENMT Head: Yes normal to inspection and Yes atraumatic Ears: hearing grossly normal bilaterally General nose exam: Normal external nose present Face and sinus: Yes normal facial exam Eyes General: appearance normal, both eyes and all related structures EOM: EOMs intact bilaterally Neck Neck: Yes normal visual inspection and Yes no meningeal signs Resp Effort & Inspection: normal respiratory effort and no respiratory distress Auscultation: wheezes expiratory wheezes and throughout and diminished lung sounds bilateral in the lower lung gallagher Cardio Rate: regular rate Heart sounds: S1 normal heart sound present and S2 normal heart sound present GI Inspection: Yes normal to inspection Palpation (GI): Soft to palpation, nontender, no guarding and not rigid General: Yes no CVA tenderness Back/Spine/Pelvis Back: no CVA tenderness Skin Rashes: no rashes Wounds: no wounds Neuro General: patient oriented x3, tone normal and no meningeal signs Gait exam (Neuro): Normal gait present Extrem General: Yes normal to inspection, Yes no pedal edema and Yes no calf tenderness Course Course Course Narrative: -1718--leukocytosis of 18.2 likely from recent steroid use. Still low suspicion for severe sepsis. Lactic acid negative. Initial troponin 8.2 > will obtain 3 hour repeat -1739--on re-evaluation patient reports symptomatic improvement, when lying flat or with any movement desats to 88% on RA >> will give additional DuoNeb and plan for admission -1749-- patient admitted to hospitalist team. IVANA López will follow-up on CXR Medical Decision Making MDM Narrative Medical decision making narrative: 51-year-old female with a past medical history of active 40+ pack-year smoker, obesity, HENRY on CPAP, COPD, presenting to the ED complaining of SOB x1 week and nonproductive cough. On exam initially tachypneic, satting 92-93% on RA, diffuse expiratory wheeze with decreased breath sounds bibasilarly, no pedal edema. Concern for COPD exacerbation vs pneumonia. Lower suspicion for ACS/PE or CHF Low suspicion for severe sepsis Plan: EKG, labs, CXR, lactic/blood cultures, DuoNeb, IV Solu-Medrol, IV magnesium Medical Records Medical records reviewed: Yes I reviewed the patient's medical records. Lab Data Lab results reviewed: Yes I reviewed the patient's lab results. Result diagrams: 04/16/22 16:20 04/16/22 16:20 Labs: Lab Results 04/16/22 04/16/22 04/16/22 Range/Units 16:20 16:20 16:20 WBC 18.2 H (4.8-10.8) X10*3/uL RBC 5.26 (4.20-5.50) X10*6/uL Hgb 12.0 (12.0-16.0) g/dl Hct 40.0 (37.0-47.0) % MCV 76.0 L (80.0-98.0) fL MCH 22.8 L (27.0-33.0) pg MCHC 30.0 L (31.0-35.0) g/dl RDW 18.0 H (11.0-16.0) % Plt Count 434 H (160-400) X10*3/uL MPV 8.8 L (9.4-12.3) fL Immature Gran % (Auto) 0.4 (0.0-0.4) % Neut % (Auto) 79.2 H (45-73) % Lymph % (Auto) 12.5 L (20-40) % [place] % (Auto) 6.2 (2-11) % Eos % (Auto) 1.3 (0-4) % Baso % (Auto) 0.4 (0-2) % Lymph # (Auto) 2.3 (1.2-4.9) X10*3/uL [place] # (Auto) 1.1 (0.1-1.2) X10*3/uL Eos # (Auto) 0.2 (0.0-0.4) X10*3/uL Baso # (Auto) 0.1 (0.0-0.2) X10*3/uL Abs Immat Gran (auto) 0.07 H (0.00-0.03) X10*3/uL Absolute Neuts (auto) 14.4 H (2.0-8.3) x10*3/uL Absolute Nucleated RBC 0.000 (0.0-0.012) X10*3/uL Nucleated RBC % (auto) 0.0 (0.0-0.2) /100WBC Sodium 139 (135-145) mmol/L Potassium 4.4 (3.3-5.1) mmol/L Chloride 99 (96-108) mmol/L Carbon Dioxide 27 (22-29) mmol/L Anion Gap 17 (12-20) BUN 12 (9-16) mg/dL Creatinine 0.78 (0.5-1.4) mg/dL Estim Creat Clear Calc 78.3 Estimated GFR > 60 Random Glucose 155 H (60-115) mg/dL Lactic Acid 1.2 (0.5-2.0) mmol/L Calcium 9.4 D (8.4-10.2) mg/dL Total Bilirubin 0.2 (0.0-1.0) mg/dL Direct Bilirubin < 0.2 (0.0-0.5) mg/dL AST 8 (5-31) U/L ALT 9 (0-31) U/L Alkaline Phosphatase 106 (39-117) U/L Troponin I High Sens (<3.5-17.0) ng/L B-Natriuretic Peptide (<100) pg/mL Total Protein 6.6 (6.5-8.0) g/dL Albumin 4.1 (3.5-5.0) g/dL COVID-19 (LAMBERT) (Negative) COVID-19 Clin Com Influenza Type A (KIM) (Negative) Influenza Type B (KIM) (Negative) Influenza A & B Note 04/16/22 04/16/22 04/16/22 Range/Units 16:20 16:52 16:52 WBC (4.8-10.8) X10*3/uL RBC (4.20-5.50) X10*6/uL Hgb (12.0-16.0) g/dl Hct (37.0-47.0) % MCV (80.0-98.0) fL MCH (27.0-33.0) pg MCHC (31.0-35.0) g/dl RDW (11.0-16.0) % Plt Count (160-400) X10*3/uL MPV (9.4-12.3) fL Immature Gran % (Auto) (0.0-0.4) % Neut % (Auto) (45-73) % Lymph % (Auto) (20-40) % [place] % (Auto) (2-11) % Eos % (Auto) (0-4) % Baso % (Auto) (0-2) % Lymph # (Auto) (1.2-4.9) X10*3/uL [place] # (Auto) (0.1-1.2) X10*3/uL Eos # (Auto) (0.0-0.4) X10*3/uL Baso # (Auto) (0.0-0.2) X10*3/uL Abs Immat Gran (auto) (0.00-0.03) X10*3/uL Absolute Neuts (auto) (2.0-8.3) x10*3/uL Absolute Nucleated RBC (0.0-0.012) X10*3/uL Nucleated RBC % (auto) (0.0-0.2) /100WBC Sodium (135-145) mmol/L Potassium (3.3-5.1) mmol/L Chloride (96-108) mmol/L Carbon Dioxide (22-29) mmol/L Anion Gap (12-20) BUN (9-16) mg/dL Creatinine (0.5-1.4) mg/dL Estim Creat Clear Calc Estimated GFR Random Glucose (60-115) mg/dL Lactic Acid (0.5-2.0) mmol/L Calcium (8.4-10.2) mg/dL Total Bilirubin (0.0-1.0) mg/dL Direct Bilirubin (0.0-0.5) mg/dL AST (5-31) U/L ALT (0-31) U/L Alkaline Phosphatase (39-117) U/L Troponin I High Sens 8.2 (<3.5-17.0) ng/L B-Natriuretic Peptide 49 (<100) pg/mL Total Protein (6.5-8.0) g/dL Albumin (3.5-5.0) g/dL COVID-19 (LAMBERT) Negative (Negative) COVID-19 Clin Com See Note Influenza Type A (KIM) Negative (Negative) Influenza Type B (KMI) Negative (Negative) Influenza A & B Note See Note ECG Data Attestation: I personally reviewed and interpreted this ECG as follows: Interpretation: EKG sinus rhythm with marked arrhythmia. Rate is 92. QRS is 82. QTC 430. no STEMI Critical Care Time Critical Care Time Critical Care Time: Yes Total Critical Care Time: 40 Attestation: I have personally provided critical care time exclusive of time spent on separately billable procedures. Time includes review of lab data, radiology results, discussion with consultants, and monitoring for potential decompensation. Intervention performed as documented. Discharge Plan Discharge Clinical Impression: COPD (chronic obstructive pulmonary disease) Patient Disposition: Admitted As Inpatient
--- NOTE | 2022-04-16 15:45 | ECG_ITS ---
Test Reason : sob Blood Pressure : / mmHG Vent. Rate : 092 BPM Atrial Rate : 092 BPM P-R Int : 118 ms QRS Dur : 082 ms QT Int : 348 ms P-R-T Axes : 037 112 061 degrees QTc Int : 430 ms Sinus rhythm with marked sinus arrhythmia with occasional Premature atrial complexes Right axis deviation Pulmonary disease pattern Abnormal ECG When compared with ECG of 06-FEB-2022 12:06, T wave inversion less evident in Anterior leads Referred By: Shona Ewing Electronically Signed By:ZAHRAA MACIEL MD
[2022-04-16 15:54] VITALS: PULSE 100; RESP 14; O2SAT 94
[2022-04-16] MEDS: Albuterol Sulfate 2.5 MG/0.5 ML VIAL.NEB 5 MG INHALE (15:54)
[2022-04-16] MEDS: Albuterol/Iprat 2.5/0.5MG 3 ML AMPUL.NEB INHALE ×2 (15:54→20:38)
[2022-04-16 16:36] LABS: MANUAL DIFF FLAG NO
[2022-04-16 16:42] LABS: Basophils Absolute Auto 0.1 X10*3/uL (0.0-0.2); Basophils Percent Auto 0.4 % (0-2); Eosinophils Absolute Auto 0.2 X10*3/uL (0.0-0.4); Eosinophils Percent Auto 1.3 % (0-4); Imm Gran Abs Auto 0.07 X10*3/uL (0.00-0.03); Imm Gran Pct Auto 0.4 % (0.0-0.4); Lymphocytes Absolute Auto 2.3 X10*3/uL (1.2-4.9); Lymphocytes Percent Auto 12.5 % (20-40); Mean Corpuscular Hemoglobin 22.8 pg (27.0-33.0); Mean Platelet Volume 8.8 fL (9.4-12.3); Monocytes Absolute Auto 1.1 X10*3/uL (0.1-1.2); Monocytes Percent Auto 6.2 % (2-11); Neutrophils Absolute Auto 14.4 x10*3/uL (2.0-8.3); Neutrophils Percent Auto 79.2 % (45-73); Platelet Count 434 X10*3/uL (160-400); Red Blood Count 5.26 X10*6/uL (4.20-5.50); White Blood Count 18.2 X10*3/uL (4.8-10.8)
[2022-04-16 16:48] LABS: Lactic Acid 1.2 mmol/L (0.5-2.0)
[2022-04-16 16:54] LABS: Alanine Aminotransferase 9 U/L (0-31); Albumin Level 4.1 g/dL (3.5-5.0); Alkaline Phosphatase 106 U/L (39-117); Anion Gap 17 (12-20); Aspartate Amino Transferase 8 U/L (5-31); Bilirubin Direct < 0.2 mg/dL (0.0-0.5); Bilirubin Total 0.2 mg/dL (0.0-1.0); Blood Urea Nitrogen 12 mg/dL (9-16); Calcium 9.4 mg/dL (8.4-10.2); Carbon Dioxide 27 mmol/L (22-29); Chloride 99 mmol/L (96-108); Creatinine Clr Calc Pharmacy 78.3; Estimated Glomerular Filt Rate > 60; Glucose Random 155 mg/dL (60-115); Potassium 4.4 mmol/L (3.3-5.1); Sodium 139 mmol/L (135-145); Total Protein 6.6 g/dL (6.5-8.0)
[2022-04-16 16:59] LABS: B Type Natriuretic Peptide 49 pg/mL (<100); Troponin-I High Sensitivity 8.2 ng/L (<3.5-17.0)
[2022-04-16 17:14] LABS: COVID-19 Test Negative (Negative); IDNOW Serial# 16C4AD1C
[2022-04-16 17:15] LABS: Influenza A Negative (Negative); Influenza B2 Negative (Negative)
[2022-04-16] MEDS: Magnesium Sulfate/H2O 2 GM/50 ML PIGGYBACK IV (17:21)
[2022-04-16] MEDS: methylPREDNISolone Sod Succ 125 MG/2 ML VIAL IVPUSH (17:21)
--- NOTE | 2022-04-16 18:19 | PC.NURSE ---
Attempted to sit pt up in bed, pt de-sat to 87%. When lying on side, pt sat at 92%. Pt states she is having no SOB, no CP. Pt refused second duo-reuben per Respiratory
[2022-04-16 18:57] VITALS: BP 151/81; PULSE 102; RESP 21; TEMP 37.2; O2SAT 94
--- NOTE | 2022-04-16 19:01 | PHA.MEDREC ---
MED REC COMPLETE, NO ISSUES Pharmacy Consult ? Medication Reconciliation Pharmacy has completed the medication reconciliation.
[2022-04-16 19:29] LABS: Glucose, Whole Blood 235 mg/dL (60-115)
[2022-04-16] MEDS: Gabapentin 400 MG CAPSULE 800 MG PO (20:27)
[2022-04-16] MEDS: methylPREDNISolone Sod Succ 40 MG/ML VIAL IVPUSH (20:27)
[2022-04-16] MEDS: Enoxaparin Sodium 40 MG/0.4 ML SYRINGE SUBCUT (20:27)
[2022-04-16] MEDS: Furosemide 20 MG TABLET PO (20:27)
[2022-04-16 20:40] VITALS: PULSE 110; RESP 16; O2SAT 95
[2022-04-16 20:40] LABS: Glucose, Whole Blood 357 mg/dL (60-115)
[2022-04-16] MEDS: Insulin Lispro 100 UNIT/ML 3 ML VIAL SUBCUT (20:41)
--- NOTE | 2022-04-16 22:57 | P.HPHOSP_ITS ---
History of Present Illness Date of Service: 04/16/22 Chief Complaint: SOB 51-year-old female with past medical history of diabetes, hypertension, COPD/asthma, GERD, presents to the hospital with complaints of shortness of breath, reports that her symptoms started about 5 days prior, she has some cough with no sputum production, she has significant wheezing. Her inhalers at home did not help. She reports no fever no chills, no chest pain, no abdominal pain, nausea or vomiting, no diarrhea constipation, no urinary symptoms and no lower extremity edema. Reported hypoxic 88% on room air with minimal ambulation, Labs are significant for WBC count of 18.2, otherwise unremarkable Chest x-ray negative for any evidence of pneumonia Review of Systems Review of Systems: Yes all other systems are reviewed and are negative [facility] Medical History Acute and chronic respiratory failure with hypercapnia Acute and chronic respiratory failure, unspecified whether with hypoxia or hypercapnia Acute and chronic respiratory failure, unspecified whether with hypoxia or hypercapnia Asthma Bustos's esophagus Carpal tunnel syndrome of right wrist Chest discomfort Chronic idiopathic constipation Chronic renal failure, stage 2 (mild) Cocaine abuse COPD (chronic obstructive pulmonary disease) COPD exacerbation Crack cocaine use Depression Diabetes mellitus Encounter for preoperative pulmonary examination Gastroparesis GERD (gastroesophageal reflux disease) Hernia High triglycerides HTN (hypertension) Knee pain, bilateral Nausea & vomiting Obesity (BMI 30-39.9) Respiratory failure Smoker Family History Father Heart disease HENRY (obstructive sleep apnea) Family history of breast cancer Mother Asthma Emphysema, unspecified Bronchitis Smoker Alcoholism Bone marrow disease Maternal Grandmother Diabetes Surgical History History of carpal tunnel release History of esophagogastroduodenoscopy (EGD) History of open reduction and internal fixation (ORIF) procedure History of pubovaginal sling History of umbilical hernia repair Hx of section Hx of cholecystectomy Hx of tubal ligation Social History Household Members: Unknown / Unable to assess Housing: Unknown / Unable to assess Are you a primary pet care technician to a significant other at home: No Do you presently have visiting nurse or other home services: Yes (NEUROLOGY TECHNICIAN-daughter) Unable to assess alcohol history related to: Unknown Alcohol intake: never Patient Tobacco Use Status: Current everyday Tobacco user Tobacco use type: Cigarette Cigarette Packs Per Day: 10 Cigarettes Per Day: 200.0 Years Smoked: 35 Second Hand Smoke Exposure: No Use of substances other than those prescribed or required for medical reasons: Yes Substance Use Type: Crack/Cocaine Substance Use Frequency: Occasionally Substance Use Frequency Other:: once every few months Any prior treatment program specific to substance use: No Advance Directives: Yes Advance Directives on File: Yes Advance Directives Date on File: 04/15/20 Patient : No service: No Current occupational status: unemployed 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 Meds Allergies Allergy/AdvReac Type Severity Reaction Status Date / Time doxycycline Allergy Severe Swelling Verified 04/11/22 16:21 varenicline [From CHANTIX] Allergy Severe ANAPHYLAXIS Verified 04/11/22 16:21 barium sulfate Allergy Intermediate angioedema Verified 04/11/22 16:21 azithromycin Allergy Mild Rash Verified 04/11/22 16:21 cetirizine Allergy Mild Rash Verified 04/11/22 16:21 famotidine Allergy Mild Rash Verified 04/11/22 16:21 linaclotide [Linzess] Allergy Mild Rash Verified 04/11/22 16:21 Active Medications: Current Medications Acetaminophen (Acetaminophen 325 Mg Tablet) 650 mg PO Q6H PRN PRN Reason: Pain, Mild (Pain Scale 1-3) Albuterol/Ipratropium (Albuterol/Iprat 2.5/0.5mg 3 Ml Ampul.Neb) 3 ml INHALE RQ4H PRN PRN Reason: Shortness of Breath/Wheezing Albuterol/Ipratropium (Albuterol/Iprat 2.5/0.5mg 3 Ml Ampul.Neb) 3 ml INHALE RQ4H WHILE AWAKE [facility] Last Admin: 04/16/22 20:38 Dose: 3 ml Aspirin (Aspirin Enteric Coated 81 Mg Tablet.Dr) 81 mg PO DAILY [facility] Atorvastatin Calcium (Atorvastatin Calcium 80 Mg Tablet) 80 mg PO DAILY [facility] Bupropion HCl (Bupropion Hcl Xl 300 Mg Tab.Er.24h) 300 mg PO DAILY [facility] Dextrose (Dextrose 50 % 25 Gm/50 Ml Syringe) 25 gm IVPUSH Q15M PRN; Protocol PRN Reason: per Hypoglycemia Standing Ord. Dicyclomine HCl (Dicyclomine Hcl 10 Mg Capsule) 20 mg PO QID PRN PRN Reason: for cramps Docusate Sodium (Docusate Sodium 100 Mg Capsule) 100 mg PO DAILY PRN PRN Reason: Constipation Enoxaparin Sodium (Enoxaparin Sodium 40 Mg/0.4 Ml Syringe) 40 mg SUBCUT Q24H [facility] Last Admin: 04/16/22 20:27 Dose: 40 mg Furosemide (Furosemide 20 Mg Tablet) 20 mg PO BID [facility]; Protocol Last Admin: 04/16/22 20:27 Dose: 20 mg Gabapentin (Gabapentin 400 Mg Capsule) 800 mg PO QID [facility] Last Admin: 04/16/22 20:27 Dose: 800 mg Glucose (Glucose Gel 15 Gm Gel..Gram.) 15 gm PO Q15M PRN; Protocol PRN Reason: per Hypoglycemia Standing Ord. Insulin Human Lispro (Insulin Lispro 100 Unit/Ml 3 Ml Vial) 0 unit SUBCUT QIDACHS [facility]; Protocol Last Admin: 04/16/22 20:41 Dose: 10 unit Losartan Potassium (Losartan Potassium 25 Mg Tablet) 25 mg PO DAILY [facility]; Protocol Methylprednisolone Sodium Succinate (Methylprednisolone Sod Succ 40 Mg/Ml Vial) 40 mg IVPUSH Q12H [facility] Last Admin: 04/16/22 20:27 Dose: 40 mg Non-Formulary Medication (Lubiprostone) 24 mcg PO BID [facility] Omeprazole (Omeprazole 40 Mg Capsule.Dr) 40 mg PO DAILY [facility] Ondansetron HCl (Ondansetron Hcl 4 Mg/2 Ml Vial) 4 mg IVPUSH Q8H PRN PRN Reason: Nausea and Vomiting Sodium Chloride (0.9 % Sodium Chloride Flush 3 Ml Syringe) 3 ml IVFLUSH QSHIFT [facility] Theophylline (Theophylline Anhydrous Er 400 Mg Tab.Er.24h) 400 mg PO BID [facility] Tizanidine HCl (Tizanidine Hcl 4 Mg Tablet) 4 mg PO BID PRN PRN Reason: muscle spasm Home Medications Medication Instructions Recorded Confirmed Last Taken Type acetaminophen 650 mg 1 tab PO Q12H PRN pain 04/16/22 04/16/22 Unknown History tablet,extended release bupropion HCl 300 mg 24 hr tablet, 300 mg PO DAILY 04/16/22 04/16/22 Unknown History extended release dulaglutide 0.75 mg/0.5 mL 0.75 mg subcut MO@1000 04/16/22 04/16/22 Unknown History [facility] Physical Exam Vital Signs and Narrative: Vital Signs: Last Vital Signs Temp 98.9 F 04/16/22 18:57 Pulse 110 H 04/16/22 20:40 Resp 16 04/16/22 20:40 BP 151/81 H 04/16/22 18:57 Pulse Ox 94 04/16/22 18:57 O2 Del Method 04/16/22 18:57 O2 Flow Rate 2 04/16/22 18:57 BMI result Body Mass Index 37.3 Const: General: cooperative and no acute distress Orientation/consciousness: patient oriented x3 Eyes: General: appearance normal, both eyes and all related structures Resp: Other: Diminished breath sounds Effort & Inspection: normal respiratory effort Cardio: Rate: regular rate Rhythm: regular rhythm GI: Palpation (GI): Soft to palpation Auscultation: normal bowel sounds Skin: General skin exam: no rashes or lesions noted Neuro: General: patient oriented x3 Cognition (Neuro): normal cognition Extrem: General: Yes normal to inspection and Yes no pedal edema Results Labs CBC and Chem 7: 04/16/22 16:20 04/16/22 16:20 Labs: Laboratory Results - last 24 hr 04/16/22 04/16/22 04/16/22 16:20 16:20 16:20 MCV 76.0 L MCH 22.8 L MCHC 30.0 L RDW 18.0 H Plt Count 434 H MPV 8.8 L Immature Gran % (Auto) 0.4 Neut % (Auto) 79.2 H Lymph % (Auto) 12.5 L Page % (Auto) 6.2 Eos % (Auto) 1.3 Baso % (Auto) 0.4 Lymph # (Auto) 2.3 Page # (Auto) 1.1 Eos # (Auto) 0.2 Baso # (Auto) 0.1 Abs Immat Gran (auto) 0.07 H Absolute Neuts (auto) 14.4 H Absolute Nucleated RBC 0.000 Nucleated RBC % (auto) 0.0 Anion Gap 17 Estim Creat Clear Calc 78.3 Estimated GFR > 60 POC Glucose Random Glucose 155 H Lactic Acid 1.2 Calcium 9.4 D Total Bilirubin 0.2 Direct Bilirubin < 0.2 AST 8 ALT 9 Alkaline Phosphatase 106 Troponin I High Sens B-Natriuretic Peptide Total Protein 6.6 Albumin 4.1 COVID-19 (LAMBERT) COVID-19 Clin Com Influenza Type A (KIM) Influenza Type B (KIM) Influenza A & B Note 04/16/22 04/16/22 04/16/22 16:20 16:52 16:52 MCV MCH MCHC RDW Plt Count MPV Immature Gran % (Auto) Neut % (Auto) Lymph % (Auto) Page % (Auto) Eos % (Auto) Baso % (Auto) Lymph # (Auto) Page # (Auto) Eos # (Auto) Baso # (Auto) Abs Immat Gran (auto) Absolute Neuts (auto) Absolute Nucleated RBC Nucleated RBC % (auto) Anion Gap Estim Creat Clear Calc Estimated GFR POC Glucose Random Glucose Lactic Acid Calcium Total Bilirubin Direct Bilirubin AST ALT Alkaline Phosphatase Troponin I High Sens 8.2 B-Natriuretic Peptide 49 Total Protein Albumin COVID-19 (LAMBERT) Negative COVID-19 Clin Com See Note Influenza Type A (KIM) Negative Influenza Type B (KIM) Negative Influenza A & B Note See Note 04/16/22 04/16/22 18:56 20:31 MCV MCH MCHC RDW Plt Count MPV Immature Gran % (Auto) Neut % (Auto) Lymph % (Auto) Page % (Auto) Eos % (Auto) Baso % (Auto) Lymph # (Auto) Page # (Auto) Eos # (Auto) Baso # (Auto) Abs Immat Gran (auto) Absolute Neuts (auto) Absolute Nucleated RBC Nucleated RBC % (auto) Anion Gap Estim Creat Clear Calc Estimated GFR POC Glucose 235 H 357 H* Random Glucose Lactic Acid Calcium Total Bilirubin Direct Bilirubin AST ALT Alkaline Phosphatase Troponin I High Sens B-Natriuretic Peptide Total Protein Albumin COVID-19 (LAMBERT) COVID-19 Clin Com Influenza Type A (KIM) Influenza Type B (KIM) Influenza A & B Note Imaging Radiologist's Impressions: Impressions Chest X-Ray 04/16/22 17:56 IMPRESSION: No acute cardiopulmonary process seen. No major change compared to 02/06/2022 Assessment and Plan (1) COPD exacerbation: Status: Acute (2) Acute respiratory failure with hypoxia: Status: Acute (3) Leukocytosis: Status: Acute Plan 51-year-old female with past medical history of COPD/asthma presents to the hospital with complaints of shortness of breath found to be hypoxic # acute hypoxic respiratory failure - secondary to asthma/COPD exacerbation - no evidence of pneumonia - treat with oxygen as required - titrate O2 as tolerated # acute COPD exacerbation - no pneumonia - COVID negative - will treat with Solu-Medrol, DuoNeb p.r.n. as well as scheduled # leukocytosis - likely secondary to above - does not appear that she was on prednisone prior to this admission - no evidence of pneumonia - monitor CBC # diabetes - hold oral antihyperglycemics - low-dose sliding scale insulin - diabetic diet # hypertension - stable - continue antihypertensives DVT prophylaxis: Lovenox Pt will require a minimum 2 night hospital stay for further management of hypoxia, as well as COPD with Solu-Medrol Quality Stroke Does the patient have a stroke diagnosis?: No VTE Prior VTE?: No VTE Risk Level:: Medical - moderate - high VTE Device Contraindication: Treatment Not Indicated VTE Drug Contraindication: N/A - Med Ordered
[2022-04-16] MEDS: Theophylline Anhydrous ER 400 MG TAB.ER.24H PO (23:03)
[2022-04-17] VITALS (7 sets, daily range): BP systolic 113–155; BP diastolic 54–98; PULSE 70–104; RESP 14–20; TEMP 36.3–37; O2SAT 92–96
[2022-04-17] MEDS: 0.9 % Sodium Chloride Flush 3 ML SYRINGE IVFLUSH ×2 (01:03→07:34)
--- NOTE | 2022-04-17 01:03 | PC.NURSE ---
pt sleeping on stretcher at this time. Snoring but otherwise seems to be in no respiratory distress, no discomfort.
[2022-04-17 06:57] LABS: Basophils Percent Auto 0.2 % (0-2); Hematocrit 39.2 % (37.0-47.0); Hemoglobin 11.8 g/dl (12.0-16.0); Imm Gran Abs Auto 0.08 X10*3/uL (0.00-0.03); Imm Gran Pct Auto 0.6 % (0.0-0.4); Lymphocytes Absolute Auto 0.7 X10*3/uL (1.2-4.9); MANUAL DIFF FLAG SCAN; Mean Corpuscular HGB Conc 30.1 g/dl (31.0-35.0); Mean Corpuscular Hemoglobin 22.6 pg (27.0-33.0); Mean Corpuscular Volume 75.2 fL (80.0-98.0); Monocytes Absolute Auto 0.2 X10*3/uL (0.1-1.2); Monocytes Percent Auto 1.3 % (2-11); Neutrophils Absolute Auto 12.3 x10*3/uL (2.0-8.3); Neutrophils Percent Auto 92.9 % (45-73); Platelet Count 496 X10*3/uL (160-400); Red Blood Count 5.21 X10*6/uL (4.20-5.50); Red Cell Distribution Width 18.2 % (11.0-16.0); SCAN SMEAR FLAG 1; White Blood Count 13.2 X10*3/uL (4.8-10.8)
[2022-04-17 07:14] LABS: Glucose, Whole Blood 260 mg/dL (60-115)
[2022-04-17] MEDS: Albuterol/Iprat 2.5/0.5MG 3 ML AMPUL.NEB INHALE ×2 (07:27→12:02)
[2022-04-17 07:29] LABS: Anion Gap 19 (12-20); Blood Urea Nitrogen 14 mg/dL (9-16); Calcium 9.5 mg/dL (8.4-10.2); Carbon Dioxide 27 mmol/L (22-29); Chloride 96 mmol/L (96-108); Creatinine Clr Calc Pharmacy 67.8; Estimated Glomerular Filt Rate > 60; Glucose Random 277 mg/dL (60-115); Potassium 4.8 mmol/L (3.3-5.1); SLIDE REVIEW VERIFIED; Sodium 137 mmol/L (135-145)
[2022-04-17] MEDS: Gabapentin 400 MG CAPSULE 800 MG PO ×2 (07:34→14:28)
[2022-04-17] MEDS: methylPREDNISolone Sod Succ 40 MG/ML VIAL IVPUSH (07:34)
[2022-04-17] MEDS: Atorvastatin Calcium 80 MG TABLET PO (07:34)
[2022-04-17] MEDS: Insulin Lispro 100 UNIT/ML 3 ML VIAL SUBCUT ×2 (07:34→14:28)
[2022-04-17] MEDS: Omeprazole 40 MG CAPSULE.DR PO (07:34)
[2022-04-17] MEDS: buPROPion HCl XL 300 MG TAB.ER.24H PO (07:35)
[2022-04-17] MEDS: Furosemide 20 MG TABLET PO (07:35)
[2022-04-17] MEDS: Aspirin Enteric Coated 81 MG TABLET.DR PO (07:35)
[2022-04-17] MEDS: Losartan Potassium 25 MG TABLET PO (07:35)
--- NOTE | 2022-04-17 09:33 | PC.NURSE ---
pt is a/o 4 no sob/connor on 02 at 2l/m via n/c. speaks in full sentences. lungs - andreina lobes cta., andreina upper lobes - diminished. heart sound regular. abd soft, obese, non/tender. hypo active on r side and active on l side. pt is aware of plan of care.
--- NOTE | 2022-04-17 09:59 | MHC.CM.PN ---
Patient lives in a house with her Adult Daughter, the Father of her Children and Extended Family and she uses a cane and walker to assist with mobility. Patient's Daughter is her HCP and her Bony CLEARANCE COORDINATOR (14 hours/week) and home/resume said services is the goal and cM has initiated and will follow for dc planning. PCP is DR. Joe Hale and Patient has receives [facility] X2.
[2022-04-17] MEDS: Theophylline Anhydrous ER 400 MG TAB.ER.24H PO (11:27)
[2022-04-17 11:41] LABS: Glucose, Whole Blood 285 mg/dL (60-115)
--- NOTE | 2022-04-17 11:50 | PC.NURSE ---
pt seen by dr. gomes pt aware of plan of care for ambulation and to check 02 sat with ambualation.
--- NOTE | 2022-04-17 12:24 | PC.NURSE ---
pt amb (i) gait steady with 02 of 88-90%< md aware.
--- NOTE | 2022-04-17 12:48 | P.DS_ITS ---
DS: Providers Provider Date of Service: 04/17/22 Date of admission: 04/16/22 19:34 Primary care physician: Unknown Physician DS: Diagnosis Discharge Diagnosis (1) COPD exacerbation: Status: Acute (2) Acute respiratory failure with hypoxia: Status: Acute (3) Leukocytosis: Status: Acute (4) UTI (urinary tract infection): Status: Acute DS: Summary Hospital Course Hospital Course: 51-year-old female with past medical history of diabetes, hypertension, COPD/asthma, GERD, presents to the hospital with complaints of shortness of breath, reports that her symptoms started about 5 days prior, she has some cough with no sputum production, she has significant wheezing.? Her inhalers at home did not help.? She reports no fever no chills, no chest pain, no abdominal pain, nausea or vomiting, no diarrhea constipation, no urinary symptoms and no lower extremity edema.? Reported hypoxic 88% on room air with minimal ambulation, Labs are significant for WBC count of 18.2, otherwise unremarkable Chest x-ray negative for any evidence of pneumonia. Hopsital course: Patient admitted for acute hypoxemic respiratory failure secondary to COPD-sta rted on nebs, steroids seems to be improved significantly, walking without an distress, maintaining sats around 90% on room air. Patient will go home with p.o. steroids and continue home medications. Patient was complaining of urinary burning, UA positive for leuko esterase -will give p.o. Ceftin for UTI treatment. Patient clinically improving, leukocytosis trending down without antibiotics, blood cultures so far negative ( prelimiary). Patient was encouraged to avoid smoking in detail. Above management discussed with the patient in detail length she understand and in agreement with the above plan, time spent 50 minutes and 50% time spent on counseling. Significant findings: As above. Procedures performed: None. Treatment and response: As above. Complications: None. Time Spent with Patient Time attestation: Total time spent providing and/or coordinating discharge services: Discharge coordination time: Greater than 30 minutes Quality: Safe Use of Opioids Does Pt have an Active Cancer Diagnosis on the Problem List?: No Quality: Stroke Does the patient have a stroke diagnosis?: No Physical Exam Vital Signs: Vital Signs: Last Vital Signs Temp 97.3 F 04/17/22 10:45 Pulse 88 04/17/22 12:03 Resp 18 04/17/22 12:03 BP 146/79 H 10/18/22 10:45 Pulse Ox 96 04/17/22 10:45 O2 Del Method 04/17/22 10:45 O2 Flow Rate 2 04/17/22 07:32 BMI result Body Mass Index 37.3 Appearance: Alert.? Oriented X3.? not in distress.? Eyes: Pupils equal, round and reactive to light.? Sclera nonicteric.? ENT: Pharynx normal.? Moist mucous membranes. cvs: rrr, [id number] , no murmur res:air entry fair , no rales or wheezing abd: no rebound or guarding ,nt, bs present. ext pulses present , no cyanosis . neuro: axo3 , nonfocal. DS: Data Data Completed and Pending Completed studies during hospitalization [Text1]: Procedures Assistance with Respiratory Ventilation, Less than 24 Consecutive Hours, Continuous Positive Airway Pressure (11/03/20) Insertion of Endotracheal Airway into Trachea, Via Natural or Artificial Opening (11/03/20) Insertion of Infusion Device into Superior Vena Cava, Percutaneous Approach (11/03/20) Respiratory Ventilation, Less than 24 Consecutive Hours (11/03/20) Labs on day of discharge: Laboratory Results - last 24 hr 04/16/22 04/16/22 04/16/22 16:20 16:20 16:20 WBC 18.2 H RBC 5.26 Hgb 12.0 Hct 40.0 MCV 76.0 L MCH 22.8 L MCHC 30.0 L RDW 18.0 H Plt Count 434 H MPV 8.8 L Immature Gran % (Auto) 0.4 Neut % (Auto) 79.2 H Lymph % (Auto) 12.5 L [place] % (Auto) 6.2 Eos % (Auto) 1.3 Baso % (Auto) 0.4 Lymph # (Auto) 2.3 [place] # (Auto) 1.1 Eos # (Auto) 0.2 Baso # (Auto) 0.1 Abs Immat Gran (auto) 0.07 H Absolute Neuts (auto) 14.4 H Absolute Nucleated RBC 0.000 Nucleated RBC % (auto) 0.0 Smear Tech's Comments Sodium 139 Potassium 4.4 Chloride 99 Carbon Dioxide 27 Anion Gap 17 BUN 12 Creatinine 0.78 Estim Creat Clear Calc 78.3 Estimated GFR > 60 POC Glucose Random Glucose 155 H Lactic Acid 1.2 Calcium 9.4 D Total Bilirubin 0.2 Direct Bilirubin < 0.2 AST 8 ALT 9 Alkaline Phosphatase 106 Troponin I High Sens B-Natriuretic Peptide Total Protein 6.6 Albumin 4.1 COVID-19 (LAMBERT) COVID-19 Clin Com Influenza Type A (KIM) Influenza Type B (KIM) Influenza A & B Note 04/16/22 04/16/22 04/16/22 16:20 16:52 16:52 WBC RBC Hgb Hct MCV MCH MCHC RDW Plt Count MPV Immature Gran % (Auto) Neut % (Auto) Lymph % (Auto) [place] % (Auto) Eos % (Auto) Baso % (Auto) Lymph # (Auto) [place] # (Auto) Eos # (Auto) Baso # (Auto) Abs Immat Gran (auto) Absolute Neuts (auto) Absolute Nucleated RBC Nucleated RBC % (auto) Smear Tech's Comments Sodium Potassium Chloride Carbon Dioxide Anion Gap BUN Creatinine Estim Creat Clear Calc Estimated GFR POC Glucose Random Glucose Lactic Acid Calcium Total Bilirubin Direct Bilirubin AST ALT Alkaline Phosphatase Troponin I High Sens 8.2 B-Natriuretic Peptide 49 Total Protein Albumin COVID-19 (LAMBERT) Negative COVID-19 Clin Com See Note Influenza Type A (KIM) Negative Influenza Type B (KIM) Negative Influenza A & B Note See Note 04/16/22 04/16/22 04/17/22 18:56 20:31 06:35 WBC 13.2 H RBC 5.21 Hgb 11.8 L Hct 39.2 MCV 75.2 L MCH 22.6 L MCHC 30.1 L RDW 18.2 H Plt Count 496 H MPV 9.0 L Immature Gran % (Auto) 0.6 H Neut % (Auto) 92.9 H Lymph % (Auto) 5.0 L [place] % (Auto) 1.3 L Eos % (Auto) 0.0 Baso % (Auto) 0.2 Lymph # (Auto) 0.7 L [place] # (Auto) 0.2 Eos # (Auto) 0.0 Baso # (Auto) 0.0 Abs Immat Gran (auto) 0.08 H Absolute Neuts (auto) 12.3 H Absolute Nucleated RBC 0.000 Nucleated RBC % (auto) 0.0 Smear Tech's Comments VERIFIED Sodium Potassium Chloride Carbon Dioxide Anion Gap BUN Creatinine Estim Creat Clear Calc Estimated GFR POC Glucose 235 H 357 H* Random Glucose Lactic Acid Calcium Total Bilirubin Direct Bilirubin AST ALT Alkaline Phosphatase Troponin I High Sens B-Natriuretic Peptide Total Protein Albumin COVID-19 (LAMBERT) COVID-19 Clin Com Influenza Type A (KIM) Influenza Type B (KIM) Influenza A & B Note 04/17/22 04/17/22 04/17/22 06:35 07:10 11:37 WBC RBC Hgb Hct MCV MCH MCHC RDW Plt Count MPV Immature Gran % (Auto) Neut % (Auto) Lymph % (Auto) [place] % (Auto) Eos % (Auto) Baso % (Auto) Lymph # (Auto) [place] # (Auto) Eos # (Auto) Baso # (Auto) Abs Immat Gran (auto) Absolute Neuts (auto) Absolute Nucleated RBC Nucleated RBC % (auto) Smear Tech's Comments Sodium 137 Potassium 4.8 Chloride 96 Carbon Dioxide 27 Anion Gap 19 BUN 14 Creatinine 0.90 Estim Creat Clear Calc 67.8 Estimated GFR > 60 POC Glucose 260 H 285 H Random Glucose 277 H Lactic Acid Calcium 9.5 Total Bilirubin Direct Bilirubin AST ALT Alkaline Phosphatase Troponin I High Sens B-Natriuretic Peptide Total Protein Albumin COVID-19 (LAMBERT) COVID-19 Clin Com Influenza Type A (KIM) Influenza Type B (KIM) Influenza A & B Note Additional Comments Additional comments: XR/XR chest 1V IMPRESSION: No acute cardiopulmonary process seen. No major change compared to 02/06/2022 Discharge Plan Discharge Anticipated Discharge Date/Time: 04/17/22 12:41 Patient Disposition: Home, Self-Care Discharge Diagnosis: copd exacerbation ,UTI Referrals: Physician,Unknown J [Primary Care Provider] - 1 Week Discharge Medications: New prednisone 20 mg tablet 40 mg PO DAILY Qty: 8 0RF cefuroxime axetil 250 mg tablet 250 mg PO Q12H Qty: 10 0RF Continued (DME) lancets [FreeStyle Lancets] 28 gauge misc See Rx Instructions .ROUTE .MEDSUPPLY Qty: 100 1RF Rx Instructions: Use to check blood sugar daily or if symptomatic hypo/hypergylcemia ipratropium-albuterol 0.5 mg-3 mg(2.5 mg base)/3 mL solution for nebulization 3 ml inhalation Q6-8H PRN (Reason: for wheezing) 30 Days Qty: 180 6RF dexlansoprazole 60 mg capsule,biphase delayed releas 60 mg PO DAILY Qty: 30 6RF dicyclomine 10 mg capsule 20 mg PO QID PRN (Reason: for cramps) Qty: 720 1RF lubiprostone 24 mcg capsule 24 mcg PO BID Qty: 60 3RF losartan 25 mg tablet 25 mg PO DAILY Qty: 30 3RF furosemide 20 mg tablet 20 mg PO BID Qty: 180 2RF gabapentin 800 mg tablet 800 mg PO QID 30 Days Qty: 120 2RF aspirin 81 mg tablet,delayed release (DR/EC) 81 mg PO DAILY 90 Days Qty: 90 0RF glipizide 5 mg tablet 5 mg PO DAILY 30 Days Qty: 30 4RF (DME) FreeStyle Lite Strips Strip See Rx Instructions .ROUTE .MEDSUPPLY Qty: 100 1RF Rx Instructions: Use to check blood sugar daily or if symptomatic hypo/hypergylcemia (DME) 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 meter [FreeStyle Lite Meter] Kit See Rx Instructions .ROUTE .MEDSUPPLY Qty: 1 0RF Rx Instructions: Use to check blood sugar daily or if symptomatic for hypo/hyperglycemia atorvastatin 80 mg tablet 80 mg PO DAILY Qty: 30 3RF ibuprofen 800 mg tablet 800 mg PO BID PRN (Reason: pain) 30 Days Qty: 90 1RF tizanidine 4 mg tablet 4 mg PO BID PRN (Reason: muscle spasm) 30 Days Qty: 60 0RF Trulicity 0.75 mg/0.5 mL pen injector 0.75 mg subcut MO@1000 bupropion HCl 300 mg tablet extended release 24 hr 300 mg PO DAILY acetaminophen 650 mg tablet extended release 1 tab PO Q12H PRN (Reason: pain) theophylline 400 mg tablet extended release 24 hr 400 mg PO BID 30 Days Qty: 60 6RF albuterol sulfate [ProAir HFA] 90 mcg/actuation HFA aerosol inhaler 2 puff inhalation Q6H PRN (Reason: shortness of breath or wheezing) 30 Days Qty: 8.5 4RF Rx Instructions: proair Discharge Orders: Discharge Order (Routine); Ordered 04/17/22 Ordered By: Nasrin Burton Diet: Advance to usual diet Activity on Discharge: As tolerated Stand Alone Forms: Patient Portal Discharge page Care Plan Goals: Patient admitted for acute hypoxemic respiratory failure secondary to COPD- started on nebs, steroids seems to be improved significantly, walking without an distress, maintaining sats around 90% on room air. Patient will go home with p.o. steroids and continue home medications. Patient was complaining of urinary burning, UA positive for leuko esterase -will give p.o. Ceftin for UTI treatment. Patient clinically improving, leukocytosis trending down without antibiotics, blood cultures so far did not grow much prelimiary. Patient was encouraged to avoid smoking in detail. Health Concerns: As above. Complete course of steroids. Leukocytosis possibly reactive,trending down. Plan of Treatment: As above. Assessment: As above.
[2022-04-17 13:43] LABS: Appearance Urine Clear; Color Urine Yellow; Glucose Urine UA Negative (Negative); Leukocyte Esterase Urine Small (1+) (Negative); Nitrite Urine Negative (Negative); PH 7.5 (5.0-9.0); UMIC TRIGGER UACC YES; Urine Blood Negative (Negative); Urine Ketones Negative (Negative); Urine Protein Negative (Neg-Trace)
[2022-04-17 13:51] LABS: Bacteria Urine None Seen (None Seen); Hyaline Casts Urine 0-2 /LPF (0-2); RBC Urine 0-2 /HPF (0-2); Squamous Epithelial Cell Urine 0-2 /HPF (0-2); UACC Culture Trigger YES; WBC Urine 0-5 /HPF (0-5)
--- NOTE | 2022-04-17 14:22 | MHC.CM.PN ---
Patient has been medically cleared for dc to home today, self care.
== END 2022-04-17 16:35 | disposition home or self-care (01) | DRG 140 ==
LOC: HO.ED 17:43 → HO.EDOVER 20:15
PROVIDERS: Physician Assistant; Admitting Provider Internal Medicine; Emergency Provider Emergency Medicine; PCP Nurse Practitioner Family; Visit Provider Internal Medicine
DX: J44.1 Chronic obstructive pulmonary disease with (acute) exacerbation (principal); D72.829 Elevated white blood cell count, unspecified; F17.210 Nicotine dependence, cigarettes, uncomplicated; G47.33 Obstructive sleep apnea (adult) (pediatric); E11.9 Type 2 diabetes mellitus without complications; I10 Essential (primary) hypertension; K21.9 Gastro-esophageal reflux disease without esophagitis; N39.0 Urinary tract infection, site not specified; Z20.822 Contact with and (suspected) exposure to COVID-19; Z71.6 Tobacco abuse counseling; Z88.1 Allergy status to other antibiotic agents; Z88.8 Allergy status to other drugs, medicaments and biological substances; Z79.82 Long term (current) use of aspirin; Z79.84 Long term (current) use of oral hypoglycemic drugs; Z79.899 Other long term (current) drug therapy
CPT/HCPCS: 0241U; 36415; 71045; 71250; 80048; 80076; 80307; 81001; 82077; 82728; 82803; 82947; 83540; 83605; 83735; 83880; 84484; 85025; 85610; 87040; 87086; 87502; 87635; 93005; 94640; 94660; 99285; J0692; J1650; J2920; J2930; J3475

== ENCOUNTER 2022-04-27 09:51 | Inpatient (IN) | payer OTHER, SELFPAY ==
[2022-04-27] VITALS (10 sets, daily range): BP systolic 93–138; BP diastolic 42–80; PULSE 97–120; RESP 17–23; TEMP 36.4–36.6; O2SAT 93–99; BMI 38.1
--- NOTE | ~2022-04-27 | XR_ITS ---
EXAMINATION: XR CHEST CLINICAL INFORMATION: Dyspnea. COMPARISON: 04/16/2022 chest radiograph. TECHNIQUE: Frontal view of the chest was obtained. FINDINGS: Mild bibasilar opacities are seen. The upper lung gallagher are clear. The heart and mediastinal structures are unremarkable. XR/XR chest 1V IMPRESSION: Mild bibasilar opacities could represent pleural effusions, atelectasis and/or infiltrates, right greater than left. A lateral view would be helpful in this patient.
--- NOTE | ~2022-04-27 | CT_ITS ---
EXAMINATION: CT CHEST WITHOUT CONTRAST CLINICAL INFORMATION: Dyspnea. COMPARISON: Chest CTs dating between November 03, 2020 and April 27, 2020. TECHNIQUE: Multidetector volumetric CT imaging of the chest was done. Axial MIP volume rendering provided. Sagittal and coronal reformatted images were obtained. This CT examination was performed using dose optimization techniques as appropriate, variously including the following: *Automated exposure control *Adjustment of mA and/or kV according to patient size (this includes techniques or standardized protocols for targeted exams where dose is matched to indication/reason for exam; i.e. extremities or head) *Use of iterative reconstruction technique DLP: 379 mGy-cm FINDINGS: LUNGS: No consolidation or nodule identified. Mild, predominantly peripheral interstitial prominence, fibrotic changes, and/atelectasis, similar compared with March 2020. MEDIASTINUM: The mediastinum appears unremarkable. CORONARY ARTERY CALCIFICATION: Mild coronary arterial calcification. PLEURA: There is no pleural effusion. No pleural mass or thickening. AXILLA: No lymphadenopathy by size criteria. UPPER ABDOMEN: Partially imaged anterior abdominal wall surgical mesh. Status post cholecystectomy. OSSEOUS STRUCTURES: Old, healed left rib fractures. CT/CT chest wo IV con IMPRESSION: No acute finding.
--- NOTE | 2022-04-27 10:01 | ECG_ITS ---
Test Reason : SOB Blood Pressure : / mmHG Vent. Rate : 101 BPM Atrial Rate : 101 BPM P-R Int : 128 ms QRS Dur : 090 ms QT Int : 344 ms P-R-T Axes : 049 100 054 degrees QTc Int : 446 ms Sinus tachycardia with Premature atrial complexes with Aberrant conduction Rightward axis Low voltage QRS RSR' or QR pattern in V1 suggests right ventricular conduction delay Abnormal ECG When compared with ECG of 16-APR-2022 16:01, No significant change was found Referred By: Millie Reid Electronically Signed By:ZAHRAA MACIEL MD
--- NOTE | 2022-04-27 10:10 | ED_ITS ---
HPI - Altered Mental Status General Chief Complaint: Dyspnea Stated Complaint: RESP FAILURE Time Seen by Provider: 04/27/22 09:57 Source: EMS Mode of arrival: EMS Limitations: altered mental status History of Present Illness HPI narrative: 51 yo female with hx of COPD still smokes not on home O2, UTI, prior cocaine abuse, GERD, obesity, chronic resp failure reportedly called 911 at home today to tell them she couldn't breathe. They found her on the floor with sats 68% and cyanotic, placed on CPAP. On ED arrival started to follow commands 94% on CPAP stated she hasn't felt well for 2 days and her grandson was sick, has had a cough with sputum production. patient now states it was her grandson who was sick with a sore throat. She also started taking a new inhaler anoro that she thinks closes her lungs when she takes it - she panicked at home and couldn't breathe after taking it. MD complaint: other (respiratory failure) Onset (ago): day(s) (2) Severity: severe Consistency of symptoms: getting Worse Context: COPD Associated symptoms: cough, chills, loss of appetite, shortness of breath and weakness Treatments prior to arrival: other (CPAP oxygen) Related Data Home Medications Medication Instructions Recorded Confirmed acetaminophen 650 mg 1 tab PO Q12H PRN pain 04/16/22 04/27/22 tablet,extended release dulaglutide 0.75 mg/0.5 mL 0.75 mg subcut MO@1000 04/16/22 04/27/22 subcutaneous pen injector (Trulicity) atorvastatin 80 mg tablet 80 mg PO BEDTIME 04/27/22 04/27/22 ipratropium 0.5 mg-albuterol 3 mg 3 ml inhalation Q6H PRN for 04/27/22 04/27/22 (2.5 mg base)/3 mL nebulization wheezing soln Previous Rx's Medication Instructions Recorded lancets 28 gauge (FreeStyle #100 ea 01/20/21 Lancets) dexlansoprazole 60 mg 60 mg PO DAILY #30 caps 10/09/21 capsule,biphase delayed release dicyclomine 10 mg capsule 20 mg PO QID PRN for cramps #720 11/07/21 caps losartan 25 mg tablet 25 mg PO DAILY #30 tabs 07/12/22 furosemide 20 mg tablet 20 mg PO BID #180 tabs 02/06/22 gabapentin 800 mg tablet 800 mg PO QID 30 days #120 tabs 02/14/22 aspirin 81 mg tablet,delayed 81 mg PO DAILY 90 days #90 tabs 02/22/22 release glipizide 5 mg tablet 5 mg PO DAILY 30 days #30 tabs 02/22/22 blood sugar diagnostic (FreeStyle #100 ea 03/01/22 Lite Strips) 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 meter (FreeStyle #1 ea 03/01/22 Lite Meter kit) albuterol sulfate 90 mcg/actuation 2 puff inhalation Q6H PRN 04/06/22 aerosol inhaler (ProAir HFA) shortness of breath or wheezing 30 days #8.5 grams ibuprofen 800 mg tablet 800 mg PO BID PRN pain 30 days #90 04/06/22 tabs theophylline 400 mg 400 mg PO BID 30 days #60 tabs 04/06/22 tablet,extended release 24 hr tizanidine 4 mg tablet 4 mg PO BID PRN muscle spasm 30 04/08/22 days #60 tabs prednisone 10 mg tablet See Rx Instructions PO DAILY 16 04/25/22 days #40 tabs Allergies Allergy/AdvReac Type Severity Reaction Status Date / Time doxycycline Allergy Severe Swelling Verified 04/11/22 16:21 varenicline [From CHANTIX] Allergy Severe ANAPHYLAXIS Verified 04/11/22 16:21 barium sulfate Allergy Intermediate angioedema Verified 04/11/22 16:21 azithromycin Allergy Mild Rash Verified 04/11/22 16:21 cetirizine Allergy Mild Rash Verified 04/11/22 16:21 famotidine Allergy Mild Rash Verified 04/11/22 16:21 linaclotide [Linzess] Allergy Mild Rash Verified 04/11/22 16:21 Review of Systems Review of Systems: ROS unable to be obtained due to altered mental status [facility] Past Medical History Attestation statement: The following information was validated with the patient. Medical History Acute and chronic respiratory failure with hypercapnia Acute and chronic respiratory failure, unspecified whether with hypoxia or hypercapnia Acute and chronic respiratory failure, unspecified whether with hypoxia or hypercapnia Asthma Bustos's esophagus Carpal tunnel syndrome of right wrist Chest discomfort Chronic idiopathic constipation Chronic renal failure, stage 2 (mild) Cocaine abuse COPD (chronic obstructive pulmonary disease) COPD exacerbation Crack cocaine use Depression Diabetes mellitus Encounter for preoperative pulmonary examination Gastroparesis GERD (gastroesophageal reflux disease) Hernia High triglycerides HTN (hypertension) Knee pain, bilateral Nausea & vomiting Obesity (BMI 30-39.9) Respiratory failure Smoker Surgical History History of carpal tunnel release History of esophagogastroduodenoscopy (EGD) History of open reduction and internal fixation (ORIF) procedure History of pubovaginal sling History of umbilical hernia repair Hx of section Hx of cholecystectomy Hx of tubal ligation Family History Family History Father Heart disease HENRY (obstructive sleep apnea) Family history of breast cancer Mother Asthma Emphysema, unspecified Bronchitis Smoker Alcoholism Bone marrow disease Maternal Grandmother Diabetes Social History Social History Household Members: Unknown / Unable to assess Housing: Unknown / Unable to assess Are you a primary manager primary care to a significant other at home: No Do you presently have visiting nurse or other home services: Yes ([employer]-daughter) Unable to assess alcohol history related to: Unknown Alcohol intake: never Patient Tobacco Use Status: Current everyday Tobacco user Tobacco use type: Cigarette Cigarette Packs Per Day: 10 Cigarettes Per Day: 200.0 Years Smoked: 35 Second Hand Smoke Exposure: No Use of substances other than those prescribed or required for medical reasons: No Substance Use Type: Crack/Cocaine Advance Directives: Yes Advance Directives on File: Yes Advance Directives Date on File: 04/15/20 service: No Current occupational status: disabled 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 Confused. Moderate acute distress. Eyes: Pupils equal, round and reactive to light. ENT: Pharynx normal. Neck: Normal inspection. Neck supple. CVS: tachycardic heart rate and rhythm. Pulses normal. Respiratory: Moderate respiratory distress - tachypnea/retractions/altered. Breath sounds very dminished with wheezes Abdomen: Soft and nontender. Obese Skin: Skin warm and dry. Normal skin color. Normal skin turgor. Extremities: No lower extremity edema. No calf ttp Neuro: initially confused No motor deficit. No sensory deficit. Course Course Course Narrative: much more alert, ABG seems more metabolic empiric ceftriaxone ordered will attempt trial off bipap 1140am patient alert and oriented x 3 feels much better - mentating well wants to come off bipap has done well post bipap MDM - Altered Mental Status MDM Narrative Medical decision making narrative: 51 yo female with hx of COPD still smokes not on home O2, UTI, prior cocaine abuse, GERD, obesity, chronic resp failure - initially on CPAP we were able to continue her on Bipap - will start on 10mg neb, IV solumedrol, labs, empiric ceftriaxone given her resp failure and reports of COPD failure at home. She has no trauma noted or c/o headache/pain she is turning around rapidly in the ED with oxygen. Planned admit Lab Data Result diagrams: 04/27/22 10:35 04/27/22 10:35 Labs: Lab Results 04/27/22 04/27/22 04/27/22 Range/Units 10:21 10:33 10:35 WBC 22.6 H (4.8-10.8) X10*3/uL RBC 5.04 (4.20-5.50) X10*6/uL Hgb 11.8 L (12.0-16.0) g/dl Hct 38.8 (37.0-47.0) % MCV 77.0 L (80.0-98.0) fL MCH 23.4 L (27.0-33.0) pg MCHC 30.4 L (31.0-35.0) g/dl RDW 18.3 H (11.0-16.0) % Plt Count 464 H (160-400) X10*3/uL MPV 9.3 L (9.4-12.3) fL Immature Gran % (Auto) 0.5 H (0.0-0.4) % Neut % (Auto) 73.1 H (45-73) % Lymph % (Auto) 20.4 (20-40) % [place] % (Auto) 5.4 (2-11) % Eos % (Auto) 0.4 (0-4) % Baso % (Auto) 0.2 (0-2) % Lymph # (Auto) 4.6 (1.2-4.9) X10*3/uL [place] # (Auto) 1.2 (0.1-1.2) X10*3/uL Eos # (Auto) 0.1 (0.0-0.4) X10*3/uL Baso # (Auto) 0.1 (0.0-0.2) X10*3/uL Abs Immat Gran (auto) 0.11 H (0.00-0.03) X10*3/uL Absolute Neuts (auto) 16.5 H (2.0-8.3) x10*3/uL Absolute Nucleated RBC 0.000 (0.0-0.012) X10*3/uL Nucleated RBC % (auto) 0.0 (0.0-0.2) /100WBC PT (10.0-13.1) SEC INR (0.9-1.1) O2 Saturation 98.0 % ABG pH at Pt Temp 7.29 L (7.35-7.45) ABG pCO2 at Pt Temp 36 (32-45) mmHg ABG pO2 at Pt Temp 102 (83-108) mmHg ABG HCO3 17 L (22-26) mmol/L ABG Base Excess (Actual) -7.8 mmol/L VBG pH Cancelled VBG pCO2 Cancelled VBG pO2 Cancelled VBG HCO3 Cancelled VBG O2 Saturation Cancelled VBG Base Excess Cancelled Sodium (135-145) mmol/L Potassium (3.3-5.1) mmol/L Chloride (96-108) mmol/L Carbon Dioxide (22-29) mmol/L Anion Gap (12-20) BUN (9-16) mg/dL Creatinine (0.5-1.4) mg/dL Estim Creat Clear Calc Estimated GFR Random Glucose (60-115) mg/dL Lactic Acid (0.5-2.0) mmol/L Calcium (8.4-10.2) mg/dL Magnesium (1.6-2.6) mg/dL Iron (30-160) mcg/dL TIBC (228-428) mcg/dL % Saturation (15-50) % Unsat Iron Binding ug/dL Ferritin (10-250) ng/mL Total Bilirubin (0.0-1.0) mg/dL Direct Bilirubin (0.0-0.5) mg/dL AST (5-31) U/L ALT (0-31) U/L Alkaline Phosphatase (39-117) U/L Troponin I High Sens (<3.5-17.0) ng/L B-Natriuretic Peptide (<100) pg/mL Total Protein (6.5-8.0) g/dL Albumin (3.5-5.0) g/dL Urine Color Urine Appearance Urine pH (5.0-9.0) Ur Specific [place] (1.005-1.025) Urine Protein (Neg-Trace) mg/dL Urine Glucose (UA) (Negative) mg/dL Urine Ketones (Negative) mg/dL Urine Blood (Negative) Urine Nitrite (Negative) Ur Leukocyte Esterase (Negative) Ethyl Alcohol mg/dL Influenza Type A (PCR) (Negative) Influenza Type B (PCR) (Negative) RSV RNA Qual (PCR) (Negative) SARS-CoV-2 RNA (RT-PCR) (Negative) 04/27/22 04/27/22 04/27/22 Range/Units 10:35 10:35 10:35 WBC (4.8-10.8) X10*3/uL RBC (4.20-5.50) X10*6/uL Hgb (12.0-16.0) g/dl Hct (37.0-47.0) % MCV (80.0-98.0) fL MCH (27.0-33.0) pg MCHC (31.0-35.0) g/dl RDW (11.0-16.0) % Plt Count (160-400) X10*3/uL MPV (9.4-12.3) fL Immature Gran % (Auto) (0.0-0.4) % Neut % (Auto) (45-73) % Lymph % (Auto) (20-40) % [place] % (Auto) (2-11) % Eos % (Auto) (0-4) % Baso % (Auto) (0-2) % Lymph # (Auto) (1.2-4.9) X10*3/uL [place] # (Auto) (0.1-1.2) X10*3/uL Eos # (Auto) (0.0-0.4) X10*3/uL Baso # (Auto) (0.0-0.2) X10*3/uL Abs Immat Gran (auto) (0.00-0.03) X10*3/uL Absolute Neuts (auto) (2.0-8.3) x10*3/uL Absolute Nucleated RBC (0.0-0.012) X10*3/uL Nucleated RBC % (auto) (0.0-0.2) /100WBC PT 10.9 (10.0-13.1) SEC INR 1.0 (0.9-1.1) O2 Saturation % ABG pH at Pt Temp (7.35-7.45) ABG pCO2 at Pt Temp (32-45) mmHg ABG pO2 at Pt Temp (83-108) mmHg ABG HCO3 (22-26) mmol/L ABG Base Excess (Actual) mmol/L VBG pH VBG pCO2 VBG pO2 VBG HCO3 VBG O2 Saturation VBG Base Excess Sodium 135 (135-145) mmol/L Potassium 3.3 D (3.3-5.1) mmol/L Chloride 100 (96-108) mmol/L Carbon Dioxide 20 L (22-29) mmol/L Anion Gap 18 (12-20) BUN 14 (9-16) mg/dL Creatinine 1.09 (0.5-1.4) mg/dL Estim Creat Clear Calc 59.1 Estimated GFR 53 Random Glucose 256 H (60-115) mg/dL Lactic Acid 1.7 (0.5-2.0) mmol/L Calcium 9.1 (8.4-10.2) mg/dL Magnesium 2.8 H (1.6-2.6) mg/dL Iron 31 (30-160) mcg/dL TIBC 404 (228-428) mcg/dL % Saturation 8 L (15-50) % Unsat Iron Binding 373 ug/dL Ferritin 18 (10-250) ng/mL Total Bilirubin < 0.2 (0.0-1.0) mg/dL Direct Bilirubin < 0.2 (0.0-0.5) mg/dL AST 8 (5-31) U/L ALT 9 (0-31) U/L Alkaline Phosphatase 85 (39-117) U/L Troponin I High Sens (<3.5-17.0) ng/L B-Natriuretic Peptide (<100) pg/mL Total Protein 6.5 (6.5-8.0) g/dL Albumin 4.0 (3.5-5.0) g/dL Urine Color Urine Appearance Urine pH (5.0-9.0) Ur Specific [place] (1.005-1.025) Urine Protein (Neg-Trace) mg/dL Urine Glucose (UA) (Negative) mg/dL Urine Ketones (Negative) mg/dL Urine Blood (Negative) Urine Nitrite (Negative) Ur Leukocyte Esterase (Negative) Ethyl Alcohol < 10 mg/dL Influenza Type A (PCR) (Negative) Influenza Type B (PCR) (Negative) RSV RNA Qual (PCR) (Negative) SARS-CoV-2 RNA (RT-PCR) (Negative) 04/27/22 04/27/22 04/27/22 Range/Units 10:35 11:53 15:37 WBC (4.8-10.8) X10*3/uL RBC (4.20-5.50) X10*6/uL Hgb (12.0-16.0) g/dl Hct (37.0-47.0) % MCV (80.0-98.0) fL MCH (27.0-33.0) pg MCHC (31.0-35.0) g/dl RDW (11.0-16.0) % Plt Count (160-400) X10*3/uL MPV (9.4-12.3) fL Immature Gran % (Auto) (0.0-0.4) % Neut % (Auto) (45-73) % Lymph % (Auto) (20-40) % [place] % (Auto) (2-11) % Eos % (Auto) (0-4) % Baso % (Auto) (0-2) % Lymph # (Auto) (1.2-4.9) X10*3/uL [place] # (Auto) (0.1-1.2) X10*3/uL Eos # (Auto) (0.0-0.4) X10*3/uL Baso # (Auto) (0.0-0.2) X10*3/uL Abs Immat Gran (auto) (0.00-0.03) X10*3/uL Absolute Neuts (auto) (2.0-8.3) x10*3/uL Absolute Nucleated RBC (0.0-0.012) X10*3/uL Nucleated RBC % (auto) (0.0-0.2) /100WBC PT (10.0-13.1) SEC INR (0.9-1.1) O2 Saturation % ABG pH at Pt Temp (7.35-7.45) ABG pCO2 at Pt Temp (32-45) mmHg ABG pO2 at Pt Temp (83-108) mmHg ABG HCO3 (22-26) mmol/L ABG Base Excess (Actual) mmol/L VBG pH VBG pCO2 VBG pO2 VBG HCO3 VBG O2 Saturation VBG Base Excess Sodium (135-145) mmol/L Potassium (3.3-5.1) mmol/L Chloride (96-108) mmol/L Carbon Dioxide (22-29) mmol/L Anion Gap (12-20) BUN (9-16) mg/dL Creatinine (0.5-1.4) mg/dL Estim Creat Clear Calc Estimated GFR Random Glucose (60-115) mg/dL Lactic Acid (0.5-2.0) mmol/L Calcium (8.4-10.2) mg/dL Magnesium (1.6-2.6) mg/dL Iron (30-160) mcg/dL TIBC (228-428) mcg/dL % Saturation (15-50) % Unsat Iron Binding ug/dL Ferritin (10-250) ng/mL Total Bilirubin (0.0-1.0) mg/dL Direct Bilirubin (0.0-0.5) mg/dL AST (5-31) U/L ALT (0-31) U/L Alkaline Phosphatase (39-117) U/L Troponin I High Sens 16.1 D (<3.5-17.0) ng/L B-Natriuretic Peptide 49 (<100) pg/mL Total Protein (6.5-8.0) g/dL Albumin (3.5-5.0) g/dL Urine Color Yellow Urine Appearance Clear Urine pH 5.5 (5.0-9.0) Ur Specific [place] 1.010 (1.005-1.025) Urine Protein Negative (Neg-Trace) mg/dL Urine Glucose (UA) Negative (Negative) mg/dL Urine Ketones Negative (Negative) mg/dL Urine Blood Negative (Negative) Urine Nitrite Negative (Negative) Ur Leukocyte Esterase Small (1+) H (Negative) Ethyl Alcohol mg/dL Influenza Type A (PCR) NEGATIVE (Negative) Influenza Type B (PCR) NEGATIVE (Negative) RSV RNA Qual (PCR) NEGATIVE (Negative) SARS-CoV-2 RNA (RT-PCR) NEGATIVE (Negative) ECG Data ECG #1: Attestation: I personally reviewed and interpreted this ECG as follows: ECG interpretation date: 04/27/22 ECG interpretation time: 10:59 Interpretation: Rate: 101 Rhythm: sinus tachycardia [place]: normal Normal P waves. Normal RADU. Normal QRS complex. Poor R wave progression ST T wave : no RADHA, nonospecific qTC: normal prior studies: no acute ischemia The study has been interpreted contemporaneously by me. . Critical Care Time Critical Care Time Critical Care Time: Yes Total Critical Care Time: 60 Attestation: review of records, NIPPV, reassessments, admission I attest to this time spent taking care of the patient Discharge Plan Discharge Clinical Impression: Acute exacerbation of chronic obstructive pulmonary disease, Metabolic acidosis Leukocytosis Qualifiers: Leukocytosis type: unspecified Qualified Code(s): D72.829 - Elevated white blood cell count, unspecified Respiratory failure Qualifiers: Chronicity: acute on chronic Respiratory failure complication: hypoxia Qualified Code(s): J96.21 - Acute and chronic respiratory failure with hypoxia Patient Disposition: Admitted As Inpatient
[2022-04-27] MEDS: Magnesium Sulfate/H2O 2 GM/50 ML PIGGYBACK IV (10:12)
[2022-04-27] MEDS: methylPREDNISolone Sod Succ 125 MG/2 ML VIAL 60 MG IVPUSH (10:13)
[2022-04-27] MEDS: Albuterol Sulfate 2.5 MG/0.5 ML VIAL.NEB 10 MG INHALE (10:33)
[2022-04-27 10:38] LABS: ABG Base Excess -7.8 mmol/L; ABG HCO3 17 mmol/L (22-26); ABG pCO2 36 mmHg (32-45); ABG pH 7.29 (7.35-7.45); ABG pO2 102 mmHg (83-108)
[2022-04-27 10:39] LABS: ABG Refer to POC result
[2022-04-27 10:41] LABS: MANUAL DIFF FLAG NO
--- NOTE | 2022-04-27 10:41 | PC.NURSE ---
PLEASE SEE CODE SHEET DOCUMENTATION FOR INITIAL DOCUMENTATION. PT CURRENTLY RESTING COMFORTABLY. APPEARS MORE COMFORTABLE THAN UPON ARRIVAL. LS DIMINISHED THROUGHOUT UPON ARRIVAL, INCREASED AIR MOVEMENT AFTER PLACEMENT OF BIPAP AND TREATMENT. MULTIPLE ATTEMPTS TO GET LABS PT IS DIFFICULT STICK. SATS 97%, HR 112 BP 93/61
[2022-04-27 10:44] LABS: Basophils Absolute Auto 0.1 X10*3/uL (0.0-0.2); Basophils Percent Auto 0.2 % (0-2); Eosinophils Absolute Auto 0.1 X10*3/uL (0.0-0.4); Eosinophils Percent Auto 0.4 % (0-4); Hematocrit 38.8 % (37.0-47.0); Hemoglobin 11.8 g/dl (12.0-16.0); Imm Gran Abs Auto 0.11 X10*3/uL (0.00-0.03); Imm Gran Pct Auto 0.5 % (0.0-0.4); Lymphocytes Absolute Auto 4.6 X10*3/uL (1.2-4.9); Lymphocytes Percent Auto 20.4 % (20-40); Mean Corpuscular HGB Conc 30.4 g/dl (31.0-35.0); Mean Corpuscular Hemoglobin 23.4 pg (27.0-33.0); Mean Platelet Volume 9.3 fL (9.4-12.3); Monocytes Absolute Auto 1.2 X10*3/uL (0.1-1.2); Monocytes Percent Auto 5.4 % (2-11); Neutrophils Absolute Auto 16.5 x10*3/uL (2.0-8.3); Neutrophils Percent Auto 73.1 % (45-73); Platelet Count 464 X10*3/uL (160-400); Red Blood Count 5.04 X10*6/uL (4.20-5.50); Red Cell Distribution Width 18.3 % (11.0-16.0); White Blood Count 22.6 X10*3/uL (4.8-10.8)
[2022-04-27 10:49] LABS: Prothrombin Time 10.9 SEC (10.0-13.1)
--- NOTE | 2022-04-27 10:50 | PC.NURSE ---
Daughter Jaja called by this RN. Updated on mother's condition per patient's request. Phone number listed in contacts
[2022-04-27 10:56] LABS: Lactic Acid 1.7 mmol/L (0.5-2.0)
[2022-04-27 11:07] LABS: B Type Natriuretic Peptide 49 pg/mL (<100); Troponin-I High Sensitivity 16.1 ng/L (<3.5-17.0)
[2022-04-27 11:09] LABS: Alanine Aminotransferase 9 U/L (0-31); Alkaline Phosphatase 85 U/L (39-117); Anion Gap 18 (12-20); Aspartate Amino Transferase 8 U/L (5-31); Blood Urea Nitrogen 14 mg/dL (9-16); Calcium 9.1 mg/dL (8.4-10.2); Carbon Dioxide 20 mmol/L (22-29); Chloride 100 mmol/L (96-108); Creatinine Clr Calc Pharmacy 59.1; Estimated Glomerular Filt Rate 53; Ethanol < 10 mg/dL; Glucose Random 256 mg/dL (60-115); Magnesium 2.8 mg/dL (1.6-2.6); Potassium 3.3 mmol/L (3.3-5.1); Sodium 135 mmol/L (135-145); Total Protein 6.5 g/dL (6.5-8.0)
[2022-04-27] MEDS: cefEPime HCl 2 GM in 0.9 % Sodium Chloride 50 ML IV (11:09)
[2022-04-27] MEDS: 0.9 % Sodium Chloride 1,000 ML 999 ML IV (11:09)
[2022-04-27 11:22] LABS: Bilirubin Direct < 0.2 mg/dL (0.0-0.5); Bilirubin Total < 0.2 mg/dL (0.0-1.0)
--- NOTE | 2022-04-27 11:49 | PC.NURSE ---
PT REMOVED FROM BIPAP PER MD ORDER, TOLERATING 2L NC WELL. SPEAKING IN FULL SENTENCES, NO RETRACTIONS. STATES RESP EFFORT FEELS AT BASELINE, DAILY SMOKER. IN NAD AT THIS TIME, ANTHONY.
[2022-04-27 12:56] LABS: Influenza A PCR NEGATIVE (Negative); Influenza B PCR NEGATIVE (Negative); Resp Syncy Virus RNA Qual PCR NEGATIVE (Negative); SARS COV2 PCR INHOUSE NEGATIVE (Negative)
--- NOTE | 2022-04-27 14:25 | PHA.MEDREC ---
Pharmacy Consult ? Medication Reconciliation Pharmacy has completed the medication reconciliation. Pt stated that she no longer takes the Anoro inhaler because it closed up her lungs. She was unclear/unsure about what day of her prednisone taper she was on.
[2022-04-27 15:37] LABS: Iron 31 mcg/dL (30-160); Percent Iron Saturation 8 % (15-50); Total Iron Binding Capacity 404 mcg/dL (228-428); Unsaturated Iron Binding 373 ug/dL
[2022-04-27 15:43] LABS: Appearance Urine Clear; Color Urine Yellow; Glucose Urine UA Negative (Negative); Leukocyte Esterase Urine Small (1+) (Negative); Nitrite Urine Negative (Negative); PH 5.5 (5.0-9.0); UMIC TRIGGER UACC YES; Urine Blood Negative (Negative); Urine Ketones Negative (Negative); Urine Protein Negative (Neg-Trace)
--- NOTE | 2022-04-27 15:49 | PM.IMHP ---
History of Present Illness Date of Service: 04/27/22 Chief Complaint: sob 51F PMH COPD/asthma, DM, obesity, GERD, HTN, presented with sob. patient states she had been feeling well until day of presentation. She states that she took her Anoro inhaler and summary felt extremely short of breath. She called EMS. When EMS came they found her on the floor and cyanotic with saturations in the high 60s. In ED she was placed on noninvasive ventilation and mental status and saturation improved. she was then weaned off and is now on 4 L and reporting significant improvement. Denies chest pain, fever, chills. Review of Systems Review of Systems: Constitutional: Denies fever, denies Chills Eyes: denies blurry vision ENT: denies sore throat CVS: denies chest pain Respiratory: dyspnea GI: no abdominal pain : denies dysuria MSK: denies neck pain Skin: denies rash Neuro: denies specific motor weakness Psych: denies suicidal ideation Endocrine: denies heat/cold intolerance Hematologic: denies easy bleeding Allergy: denies hives PMFSH Medical History Acute and chronic respiratory failure with hypercapnia Acute and chronic respiratory failure, unspecified whether with hypoxia or hypercapnia Acute and chronic respiratory failure, unspecified whether with hypoxia or hypercapnia Asthma Bustos's esophagus Carpal tunnel syndrome of right wrist Chest discomfort Chronic idiopathic constipation Chronic renal failure, stage 2 (mild) Cocaine abuse COPD (chronic obstructive pulmonary disease) COPD exacerbation Crack cocaine use Depression Diabetes mellitus Encounter for preoperative pulmonary examination Gastroparesis GERD (gastroesophageal reflux disease) Hernia High triglycerides HTN (hypertension) Knee pain, bilateral Nausea & vomiting Obesity (BMI 30-39.9) Respiratory failure Smoker Family History Father Heart disease HENRY (obstructive sleep apnea) Family history of breast cancer Mother Asthma Emphysema, unspecified Bronchitis Smoker Alcoholism Bone marrow disease Maternal Grandmother Diabetes Surgical History History of carpal tunnel release History of esophagogastroduodenoscopy (EGD) History of open reduction and internal fixation (ORIF) procedure History of pubovaginal sling History of umbilical hernia repair Hx of section Hx of cholecystectomy Hx of tubal ligation Social History Household Members: Unknown / Unable to assess Housing: Unknown / Unable to assess Are you a primary urgent care physician assistant to a significant other at home: No Do you presently have visiting nurse or other home services: Yes ([employer]-daughter) Unable to assess alcohol history related to: Unknown Alcohol intake: never Patient Tobacco Use Status: Current everyday Tobacco user Tobacco use type: Cigarette Cigarette Packs Per Day: 10 Cigarettes Per Day: 200.0 Years Smoked: 35 Second Hand Smoke Exposure: No Use of substances other than those prescribed or required for medical reasons: No Substance Use Type: Crack/Cocaine Advance Directives: Yes Advance Directives on File: Yes Advance Directives Date on File: 04/15/20 service: No Current occupational status: disabled 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 Meds Allergies Allergy/AdvReac Type Severity Reaction Status Date / Time doxycycline Allergy Severe Swelling Verified 04/11/22 16:21 varenicline [From CHANTIX] Allergy Severe ANAPHYLAXIS Verified 04/11/22 16:21 barium sulfate Allergy Intermediate angioedema Verified 04/11/22 16:21 azithromycin Allergy Mild Rash Verified 04/11/22 16:21 cetirizine Allergy Mild Rash Verified 04/11/22 16:21 famotidine Allergy Mild Rash Verified 04/11/22 16:21 linaclotide [Linzess] Allergy Mild Rash Verified 04/11/22 16:21 Active Medications: Current Medications Aspirin (Aspirin Enteric Coated 81 Mg Tablet.Dr) 81 mg PO DAILY [facility] Atorvastatin Calcium (Atorvastatin Calcium 80 Mg Tablet) 80 mg PO BEDTIME [facility] Dextrose (Dextrose 50 % 25 Gm/50 Ml Syringe) 25 gm IVPUSH Q15M PRN; Protocol PRN Reason: per Hypoglycemia Standing Ord. Dicyclomine HCl (Dicyclomine Hcl 10 Mg Capsule) 20 mg PO QID PRN PRN Reason: for cramps Furosemide (Furosemide 20 Mg Tablet) 20 mg PO BID [facility]; Protocol Gabapentin (Gabapentin 400 Mg Capsule) 800 mg PO QID [place] Glucose (Glucose Gel 15 Gm Gel..Gram.) 15 gm PO Q15M PRN; Protocol PRN Reason: per Hypoglycemia Standing Ord. Insulin Human Lispro (Insulin Lispro 100 Unit/Ml 3 Ml Vial) 0 unit SUBCUT QIDACHS [place]; Protocol Losartan Potassium (Losartan Potassium 25 Mg Tablet) 25 mg PO DAILY [place]; Protocol Non-Formulary Medication (Dexlansoprazole) 60 mg PO DAILY [facility] Pharmacy Consult (Consult Rx Perform Med Rec) 1 each MISCELLANE ONCE PRN PRN Reason: Consult order Theophylline (Theophylline Anhydrous Er 400 Mg Tab.Er.24h) 400 mg PO BID [facility] Tizanidine HCl (Tizanidine Hcl 4 Mg Tablet) 4 mg PO BID PRN PRN Reason: muscle spasm Home Medications Medication Instructions Recorded Confirmed Last Taken Type acetaminophen 650 mg 1 tab PO Q12H PRN pain 04/16/22 04/27/22 Unknown History tablet,extended release dulaglutide 0.75 mg/0.5 mL 0.75 mg subcut MO@1000 04/16/22 04/27/22 04/23/22 History subcutaneous pen injector (Trulicity) atorvastatin 80 mg tablet 80 mg PO BEDTIME 04/27/22 04/27/22 04/26/22 History ipratropium 0.5 mg-albuterol 3 mg 3 ml inhalation Q6H PRN for 04/27/22 04/27/22 Unknown History (2.5 mg base)/3 mL nebulization wheezing soln Physical Exam Vital Signs and Narrative: Vital Signs: Last Vital Signs Temp 97.5 F 04/27/22 11:48 Pulse 108 H 04/27/22 15:25 Resp 18 04/27/22 15:25 BP 135/71 04/27/22 15:25 Pulse Ox 93 04/27/22 15:25 O2 Del Method 04/27/22 15:25 O2 Flow Rate 4 04/27/22 15:25 BMI result Body Mass Index 38.1 General: mild resp distress, short sentences HEENT: atraumatic Neck: normal to visual inspection CVS: S1, S2, RRR Resp: CTA bilateral Chest: non tender GI: soft, non tender, non distended : no CVA tenderness Skin: no rashes Extremities: no edema Neuro: Oriented X3, grossly intact Psych: cooperative Results Labs CBC and Chem 7: 04/27/22 10:35 04/27/22 10:35 Labs: Laboratory Results - last 24 hr 04/27/22 04/27/22 04/27/22 10:21 10:33 10:35 MCV 77.0 L MCH 23.4 L MCHC 30.4 L RDW 18.3 H Plt Count 464 H MPV 9.3 L Immature Gran % (Auto) 0.5 H Neut % (Auto) 73.1 H Lymph % (Auto) 20.4 [place] % (Auto) 5.4 Eos % (Auto) 0.4 Baso % (Auto) 0.2 Lymph # (Auto) 4.6 [place] # (Auto) 1.2 Eos # (Auto) 0.1 Baso # (Auto) 0.1 Abs Immat Gran (auto) 0.11 H Absolute Neuts (auto) 16.5 H Absolute Nucleated RBC 0.000 Nucleated RBC % (auto) 0.0 PT INR O2 Saturation 98.0 ABG pH at Pt Temp 7.29 L ABG pCO2 at Pt Temp 36 ABG pO2 at Pt Temp 102 ABG HCO3 17 L ABG Base Excess (Actual) -7.8 VBG pH Cancelled VBG pCO2 Cancelled VBG pO2 Cancelled VBG HCO3 Cancelled VBG O2 Saturation Cancelled VBG Base Excess Cancelled Anion Gap Estim Creat Clear Calc Estimated GFR Random Glucose Lactic Acid Calcium Magnesium Iron TIBC % Saturation Unsat Iron Binding Total Bilirubin Direct Bilirubin AST ALT Alkaline Phosphatase Troponin I High Sens B-Natriuretic Peptide Total Protein Albumin Urine Color Urine Appearance Urine pH Ur Specific [place] Urine Protein Urine Glucose (UA) Urine Ketones Urine Blood Urine Nitrite Ur Leukocyte Esterase Ethyl Alcohol Influenza Type A (PCR) Influenza Type B (PCR) RSV RNA Qual (PCR) SARS-CoV-2 RNA (RT-PCR) 04/27/22 04/27/22 04/27/22 10:35 10:35 10:35 MCV MCH MCHC RDW Plt Count MPV Immature Gran % (Auto) Neut % (Auto) Lymph % (Auto) [place] % (Auto) Eos % (Auto) Baso % (Auto) Lymph # (Auto) [place] # (Auto) Eos # (Auto) Baso # (Auto) Abs Immat Gran (auto) Absolute Neuts (auto) Absolute Nucleated RBC Nucleated RBC % (auto) PT 10.9 INR 1.0 O2 Saturation ABG pH at Pt Temp ABG pCO2 at Pt Temp ABG pO2 at Pt Temp ABG HCO3 ABG Base Excess (Actual) VBG pH VBG pCO2 VBG pO2 VBG HCO3 VBG O2 Saturation VBG Base Excess Anion Gap 18 Estim Creat Clear Calc 59.1 Estimated GFR 53 Random Glucose 256 H Lactic Acid 1.7 Calcium 9.1 Magnesium 2.8 H Iron 31 TIBC 404 % Saturation 8 L Unsat Iron Binding 373 Total Bilirubin < 0.2 Direct Bilirubin < 0.2 AST 8 ALT 9 Alkaline Phosphatase 85 Troponin I High Sens B-Natriuretic Peptide Total Protein 6.5 Albumin 4.0 Urine Color Urine Appearance Urine pH Ur Specific [place] Urine Protein Urine Glucose (UA) Urine Ketones Urine Blood Urine Nitrite Ur Leukocyte Esterase Ethyl Alcohol < 10 Influenza Type A (PCR) Influenza Type B (PCR) RSV RNA Qual (PCR) SARS-CoV-2 RNA (RT-PCR) 04/27/22 04/27/22 04/27/22 10:35 11:53 15:37 MCV MCH MCHC RDW Plt Count MPV Immature Gran % (Auto) Neut % (Auto) Lymph % (Auto) [place] % (Auto) Eos % (Auto) Baso % (Auto) Lymph # (Auto) [place] # (Auto) Eos # (Auto) Baso # (Auto) Abs Immat Gran (auto) Absolute Neuts (auto) Absolute Nucleated RBC Nucleated RBC % (auto) PT INR O2 Saturation ABG pH at Pt Temp ABG pCO2 at Pt Temp ABG pO2 at Pt Temp ABG HCO3 ABG Base Excess (Actual) VBG pH VBG pCO2 VBG pO2 VBG HCO3 VBG O2 Saturation VBG Base Excess Anion Gap Estim Creat Clear Calc Estimated GFR Random Glucose Lactic Acid Calcium Magnesium Iron TIBC % Saturation Unsat Iron Binding Total Bilirubin Direct Bilirubin AST ALT Alkaline Phosphatase Troponin I High Sens 16.1 D B-Natriuretic Peptide 49 Total Protein Albumin Urine Color Yellow Urine Appearance Clear Urine pH 5.5 Ur Specific [place] 1.010 Urine Protein Negative Urine Glucose (UA) Negative Urine Ketones Negative Urine Blood Negative Urine Nitrite Negative Ur Leukocyte Esterase Small (1+) H Ethyl Alcohol Influenza Type A (PCR) NEGATIVE Influenza Type B (PCR) NEGATIVE RSV RNA Qual (PCR) NEGATIVE SARS-CoV-2 RNA (RT-PCR) NEGATIVE Imaging Radiologist's Impressions: Impressions Chest X-Ray 04/27/22 11:08 IMPRESSION: Mild bibasilar opacities could represent pleural effusions, atelectasis and/or infiltrates, right greater than left. A lateral view would be helpful in this patient. Chest CT 04/27/22 12:33 IMPRESSION: No acute finding. Assessment and Plan (1) Acute exacerbation of chronic obstructive pulmonary disease: Status: Acute Plan 51F PMH COPD/asthma, DM, obesity, GERD, HTN, presented with sob metabolic encephalopathy and Acute hypoxic respiratory failure secondary to COPD/ severe persistent asthma with acute decompensation mental status back to baseline IV steroids, bronchodilators, continue Theophylline, avoid aerosol inhalers wean o2 as tolerated iron deficiency anemia new diagnosis, no obvious bleeding, continue PPI, IV iron infusion, outpatient GI obesity weight loss recommended diabetes basal bolus insulin, monitor POC hypertension losartan DVT prophylaxis with Lovenox full code patient with significant hypoxia leading to cyanosis, and encephalopathy. Patient high risk due to obesity, diabetes, hypertension, therefore, expected require at least 2 midnights in the hospital. Quality Stroke Does the patient have a stroke diagnosis?: No VTE Prior VTE?: No VTE Risk Level:: Medical - moderate - high VTE Device Contraindication: Treatment Not Indicated VTE Drug Contraindication: N/A - Med Ordered
[2022-04-27 15:57] LABS: Ferritin 18 ng/mL (10-250)
[2022-04-27 16:00] LABS: Amphetamine Screen Urine Not Detected (Not Detect); Barbiturates, Urine Not Detected (Not Detect); Benzodiazepines Screen Urine Not Detected (Not Detect); Cannabinoid Screen Urine Not Detected (Not Detect); Cocaine Screen Urine POSITIVE (Not Detect); Fentanyl, urine Not Detected (Not Detect); Opiate Screen Urine Not Detected (Not Detect); Phencyclidine Screen Urine Not Detected (Not Detect)
[2022-04-27 16:03] LABS: Bacteria Urine None Seen (None Seen); Hyaline Casts Urine 0-2 /LPF (0-2); RBC Urine 0-2 /HPF (0-2); UACC Culture Trigger YES; WBC Urine 0-5 /HPF (0-5)
[2022-04-27] MEDS: Albuterol/Iprat 2.5/0.5MG 3 ML AMPUL.NEB INHALE ×2 (16:11→19:54)
[2022-04-27 17:16] LABS: Glucose, Whole Blood 286 mg/dL (60-115)
[2022-04-27] MEDS: Enoxaparin Sodium 40 MG/0.4 ML SYRINGE SUBCUT (17:42)
[2022-04-27] MEDS: Insulin Lispro 100 UNIT/ML 3 ML VIAL SUBCUT (17:42)
[2022-04-27] MEDS: Gabapentin 400 MG CAPSULE 800 MG PO (17:43)
--- NOTE | 2022-04-27 19:21 | PC.NURSE ---
Pt. requesting to leave - states she feels better. Notifying hospitalist at this time
[2022-04-27] MEDS: methylPREDNISolone Sod Succ 40 MG/ML VIAL IVPUSH (19:22)
--- NOTE | 2022-04-27 19:28 | PC.NURSE ---
Notified Hospitalist MD Meliton that pt. is requesting to leave
--- NOTE | 2022-04-27 19:54 | PC.NURSE ---
MD Coelho spoke with pt. Per , pt. can sign AMA and be d/c
--- NOTE | 2022-04-27 20:52 | PM.EVENT ---
Event Note Date of Service: 04/27/22 Event Note: Was called by the nurse as patient was requesting to leave. Patient understands the reasoning for her admission and risks of leaving without medical advice including worsening of her respiratory status. States she feels better and wants to leave. Maintaining normal oxygen saturation on room air. Deemed to have capacity. States she has prednisone at home and has a new inhaler. Will follow with her PCP. Asked to come back to the ER in case of new or worsening complaints
--- NOTE | 2022-04-28 07:05 | P.DS_ITS ---
DS: Providers Provider Date of Service: 04/28/22 Date of admission: 04/27/22 15:48 Primary care physician: Joe Hale [facility] DS: Diagnosis Discharge Diagnosis (1) Acute exacerbation of chronic obstructive pulmonary disease: Status: Acute DS: Summary Hospital Course Hospital Course: from initial hpi: 51F PMH COPD/asthma, DM, obesity, GERD, HTN, presented with sob. patient states she? had been feeling well until day of presentation.? She states that she took her Anoro inhaler and summary felt extremely short of breath.? She called EMS.? When EMS came they found her on the floor and cyanotic with saturations in the high 60s.? In ED she was placed on? noninvasive ventilation and mental status and saturation improved. ? she was then weaned off and is now on 4 L and reporting significant improvement.? Denies chest pain, fever, chills. hospital course: Patient was admitted for metabolic encephalopathy and acute hypoxic respiratory failure secondary to COPD and severe persistent asthma with acute decompensation. Patient's mental status returned to baseline. Plan was for IV steroids, bronchodilators and weaning of oxygen. Patient was also newly diagnosed with iron deficiency anemia without obvious active bleeding. And plan was to administer IV iron and arrange outpatient GI. Patient decided to leave against medical advice. for diabetes she had been treated with basal bolus insulin, hypertension she was treated with losartan. For obesity weight loss was recommended. Time Spent with Patient Time attestation: Total time spent providing and/or coordinating discharge services: Discharge coordination time: Greater than 30 minutes Quality: Safe Use of Opioids Does Pt have an Active Cancer Diagnosis on the Problem List?: No Quality: Stroke Does the patient have a stroke diagnosis?: No Physical Exam Vital Signs: Vital Signs: Last Vital Signs Temp 97.5 F 04/27/22 20:23 Pulse 98 04/27/22 20:23 Resp 18 04/27/22 20:23 BP 125/80 04/27/22 20:23 Pulse Ox 94 04/27/22 20:23 O2 Del Method 04/27/22 20:23 O2 Flow Rate 4 04/27/22 15:25 BMI result Body Mass Index 38.1 DS: Data Data Completed and Pending Completed studies during hospitalization [Text1]: Procedures Assistance with Respiratory Ventilation, Less than 24 Consecutive Hours, Continuous Positive Airway Pressure (11/03/20) Insertion of Endotracheal Airway into Trachea, Via Natural or Artificial Opening (11/03/20) Insertion of Infusion Device into Superior Vena Cava, Percutaneous Approach (11/03/20) Respiratory Ventilation, Less than 24 Consecutive Hours (11/03/20) Labs on day of discharge: Laboratory Results - last 24 hr 04/27/22 04/27/22 04/27/22 10:21 10:33 10:35 WBC 22.6 H RBC 5.04 Hgb 11.8 L Hct 38.8 MCV 77.0 L MCH 23.4 L MCHC 30.4 L RDW 18.3 H Plt Count 464 H MPV 9.3 L Immature Gran % (Auto) 0.5 H Neut % (Auto) 73.1 H Lymph % (Auto) 20.4 Fountain % (Auto) 5.4 Eos % (Auto) 0.4 Baso % (Auto) 0.2 Lymph # (Auto) 4.6 Fountain # (Auto) 1.2 Eos # (Auto) 0.1 Baso # (Auto) 0.1 Abs Immat Gran (auto) 0.11 H Absolute Neuts (auto) 16.5 H Absolute Nucleated RBC 0.000 Nucleated RBC % (auto) 0.0 PT INR O2 Saturation 98.0 ABG pH at Pt Temp 7.29 L ABG pCO2 at Pt Temp 36 ABG pO2 at Pt Temp 102 ABG HCO3 17 L ABG Base Excess (Actual) -7.8 VBG pH Cancelled VBG pCO2 Cancelled VBG pO2 Cancelled VBG HCO3 Cancelled VBG O2 Saturation Cancelled VBG Base Excess Cancelled Sodium Potassium Chloride Carbon Dioxide Anion Gap BUN Creatinine Estim Creat Clear Calc Estimated GFR POC Glucose Random Glucose Lactic Acid Calcium Magnesium Iron TIBC % Saturation Unsat Iron Binding Ferritin Total Bilirubin Direct Bilirubin AST ALT Alkaline Phosphatase Troponin I High Sens B-Natriuretic Peptide Total Protein Albumin Urine Color Urine Appearance Urine pH Ur Specific [place] Urine Protein Urine Glucose (UA) Urine Ketones Urine Blood Urine Nitrite Ur Leukocyte Esterase Urine RBC Urine WBC Ur Squamous Epith Cells Urine Bacteria Hyaline Casts Urine Opiates Screen Urine Fentanyl Screen Ur Barbiturates Screen Ur Phencyclidine Scrn Ur Amphetamines Screen U Benzodiazepines Scrn Urine Cocaine Screen U Marijuana (THC) Screen Ethyl Alcohol Influenza Type A (PCR) Influenza Type B (PCR) RSV RNA Qual (PCR) SARS-CoV-2 RNA (RT-PCR) 04/27/22 04/27/22 04/27/22 10:35 10:35 10:35 WBC RBC Hgb Hct MCV MCH MCHC RDW Plt Count MPV Immature Gran % (Auto) Neut % (Auto) Lymph % (Auto) [place] % (Auto) Eos % (Auto) Baso % (Auto) Lymph # (Auto) [place] # (Auto) Eos # (Auto) Baso # (Auto) Abs Immat Gran (auto) Absolute Neuts (auto) Absolute Nucleated RBC Nucleated RBC % (auto) PT 10.9 INR 1.0 O2 Saturation ABG pH at Pt Temp ABG pCO2 at Pt Temp ABG pO2 at Pt Temp ABG HCO3 ABG Base Excess (Actual) VBG pH VBG pCO2 VBG pO2 VBG HCO3 VBG O2 Saturation VBG Base Excess Sodium 135 Potassium 3.3 D Chloride 100 Carbon Dioxide 20 L Anion Gap 18 BUN 14 Creatinine 1.09 Estim Creat Clear Calc 59.1 Estimated GFR 53 POC Glucose Random Glucose 256 H Lactic Acid 1.7 Calcium 9.1 Magnesium 2.8 H Iron 31 TIBC 404 % Saturation 8 L Unsat Iron Binding 373 Ferritin 18 Total Bilirubin < 0.2 Direct Bilirubin < 0.2 AST 8 ALT 9 Alkaline Phosphatase 85 Troponin I High Sens B-Natriuretic Peptide Total Protein 6.5 Albumin 4.0 Urine Color Urine Appearance Urine pH Ur Specific [place] Urine Protein Urine Glucose (UA) Urine Ketones Urine Blood Urine Nitrite Ur Leukocyte Esterase Urine RBC Urine WBC Ur Squamous Epith Cells Urine Bacteria Hyaline Casts Urine Opiates Screen Urine Fentanyl Screen Ur Barbiturates Screen Ur Phencyclidine Scrn Ur Amphetamines Screen U Benzodiazepines Scrn Urine Cocaine Screen U Marijuana (THC) Screen Ethyl Alcohol < 10 Influenza Type A (PCR) Influenza Type B (PCR) RSV RNA Qual (PCR) SARS-CoV-2 RNA (RT-PCR) 04/27/22 04/27/22 04/27/22 10:35 11:53 15:37 WBC RBC Hgb Hct MCV MCH MCHC RDW Plt Count MPV Immature Gran % (Auto) Neut % (Auto) Lymph % (Auto) [place] % (Auto) Eos % (Auto) Baso % (Auto) Lymph # (Auto) [place] # (Auto) Eos # (Auto) Baso # (Auto) Abs Immat Gran (auto) Absolute Neuts (auto) Absolute Nucleated RBC Nucleated RBC % (auto) PT INR O2 Saturation ABG pH at Pt Temp ABG pCO2 at Pt Temp ABG pO2 at Pt Temp ABG HCO3 ABG Base Excess (Actual) VBG pH VBG pCO2 VBG pO2 VBG HCO3 VBG O2 Saturation VBG Base Excess Sodium Potassium Chloride Carbon Dioxide Anion Gap BUN Creatinine Estim Creat Clear Calc Estimated GFR POC Glucose Random Glucose Lactic Acid Calcium Magnesium Iron TIBC % Saturation Unsat Iron Binding Ferritin Total Bilirubin Direct Bilirubin AST ALT Alkaline Phosphatase Troponin I High Sens 16.1 D B-Natriuretic Peptide 49 Total Protein Albumin Urine Color Yellow Urine Appearance Clear Urine pH 5.5 Ur Specific [place] 1.010 Urine Protein Negative Urine Glucose (UA) Negative Urine Ketones Negative Urine Blood Negative Urine Nitrite Negative Ur Leukocyte Esterase Small (1+) H Urine RBC 0-2 Urine WBC 0-5 Ur Squamous Epith Cells 3-5 Urine Bacteria None Seen Hyaline Casts 0-2 Urine Opiates Screen Urine Fentanyl Screen Ur Barbiturates Screen Ur Phencyclidine Scrn Ur Amphetamines Screen U Benzodiazepines Scrn Urine Cocaine Screen U Marijuana (THC) Screen Ethyl Alcohol Influenza Type A (PCR) NEGATIVE Influenza Type B (PCR) NEGATIVE RSV RNA Qual (PCR) NEGATIVE SARS-CoV-2 RNA (RT-PCR) NEGATIVE 04/27/22 04/27/22 15:37 17:12 WBC RBC Hgb Hct MCV MCH MCHC RDW Plt Count MPV Immature Gran % (Auto) Neut % (Auto) Lymph % (Auto) [place] % (Auto) Eos % (Auto) Baso % (Auto) Lymph # (Auto) [place] # (Auto) Eos # (Auto) Baso # (Auto) Abs Immat Gran (auto) Absolute Neuts (auto) Absolute Nucleated RBC Nucleated RBC % (auto) PT INR O2 Saturation ABG pH at Pt Temp ABG pCO2 at Pt Temp ABG pO2 at Pt Temp ABG HCO3 ABG Base Excess (Actual) VBG pH VBG pCO2 VBG pO2 VBG HCO3 VBG O2 Saturation VBG Base Excess Sodium Potassium Chloride Carbon Dioxide Anion Gap BUN Creatinine Estim Creat Clear Calc Estimated GFR POC Glucose 286 H Random Glucose Lactic Acid Calcium Magnesium Iron TIBC % Saturation Unsat Iron Binding Ferritin Total Bilirubin Direct Bilirubin AST ALT Alkaline Phosphatase Troponin I High Sens B-Natriuretic Peptide Total Protein Albumin Urine Color Urine Appearance Urine pH Ur Specific [place] Urine Protein Urine Glucose (UA) Urine Ketones Urine Blood Urine Nitrite Ur Leukocyte Esterase Urine RBC Urine WBC Ur Squamous Epith Cells Urine Bacteria Hyaline Casts Urine Opiates Screen Not Detected Urine Fentanyl Screen Not Detected Ur Barbiturates Screen Not Detected Ur Phencyclidine Scrn Not Detected Ur Amphetamines Screen Not Detected U Benzodiazepines Scrn Not Detected Urine Cocaine Screen POSITIVE H U Marijuana (THC) Screen Not Detected Ethyl Alcohol Influenza Type A (PCR) Influenza Type B (PCR) RSV RNA Qual (PCR) SARS-CoV-2 RNA (RT-PCR) Discharge Plan Discharge Anticipated Discharge Date/Time: 04/28/22 07:07 Patient Disposition: Left Against Medical Advice Discharge Diagnosis: asthma, copd Referrals: Joe Hale, [employer] SEPARATOR-[facility] [Primary Care Provider] - 1 Week Discharge Medications: No Action (DME) lancets [FreeStyle Lancets] 28 gauge misc See Rx Instructions .ROUTE .MEDSUPPLY Qty: 100 1RF Rx Instructions: Use to check blood sugar daily or if symptomatic hypo/hypergylcemia dexlansoprazole 60 mg capsule,biphase delayed releas 60 mg PO DAILY Qty: 30 6RF dicyclomine 10 mg capsule 20 mg PO QID PRN (Reason: for cramps) Qty: 720 1RF losartan 25 mg tablet 25 mg PO DAILY Qty: 30 3RF furosemide 20 mg tablet 20 mg PO BID Qty: 180 2RF gabapentin 800 mg tablet 800 mg PO QID 30 Days Qty: 120 2RF aspirin 81 mg tablet,delayed release (DR/EC) 81 mg PO DAILY 90 Days Qty: 90 0RF glipizide 5 mg tablet 5 mg PO DAILY 30 Days Qty: 30 4RF (DME) FreeStyle Lite Strips Strip See Rx Instructions .ROUTE .MEDSUPPLY Qty: 100 1RF Rx Instructions: Use to check blood sugar daily or if symptomatic hypo/hypergylcemia (DME) 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 meter [FreeStyle Lite Meter] Kit See Rx Instructions .ROUTE .MEDSUPPLY Qty: 1 0RF Rx Instructions: Use to check blood sugar daily or if symptomatic for hypo/hyperglycemia ibuprofen 800 mg tablet 800 mg PO BID PRN (Reason: pain) 30 Days Qty: 90 1RF tizanidine 4 mg tablet 4 mg PO BID PRN (Reason: muscle spasm) 30 Days Qty: 60 0RF prednisone 10 mg tablet See Rx Instructions PO DAILY 16 Days Qty: 40 0RF Rx Instructions: Take four tabs daily for 4 days, then go down by 1 tab every 4 days orally daily; Trulicity 0.75 mg/0.5 mL pen injector 0.75 mg subcut MO@1000 acetaminophen 650 mg tablet extended release 1 tab PO Q12H PRN (Reason: pain) atorvastatin 80 mg tablet 80 mg PO BEDTIME ipratropium-albuterol 0.5 mg-3 mg(2.5 mg base)/3 mL solution for nebulization 3 ml inhalation Q6H PRN (Reason: for wheezing) theophylline 400 mg tablet extended release 24 hr 400 mg PO BID 30 Days Qty: 60 6RF albuterol sulfate [ProAir HFA] 90 mcg/actuation HFA aerosol inhaler 2 puff inhalation Q6H PRN (Reason: shortness of breath or wheezing) 30 Days Qty: 8.5 4RF Rx Instructions: proair Discharge Orders: Discharge Order (Routine); Ordered 04/28/22 Ordered By: Pierre Agustin Care Plan Goals: * recoer Health Concerns: copd, asthma Plan of Treatment: steroids Assessment: should be treated in hospital Discharge Date/Time: 04/27/22 20:20
== END 2022-04-27 20:20 | disposition left against medical advice (07) | DRG 140 ==
LOC: HO.ED 11:43 → HO.EDOVER 15:51
PROVIDERS: Admitting Provider Internal Medicine; Emergency Provider Emergency Medicine; PCP Nurse Practitioner Family; Visit Provider Internal Medicine
DX: J44.1 Chronic obstructive pulmonary disease with (acute) exacerbation (principal); J96.21 Acute and chronic respiratory failure with hypoxia; G93.41 Metabolic encephalopathy; E87.20 Acidosis, unspecified; J45.51 Severe persistent asthma with (acute) exacerbation; K21.9 Gastro-esophageal reflux disease without esophagitis; E66.9 Obesity, unspecified; D72.829 Elevated white blood cell count, unspecified; E11.9 Type 2 diabetes mellitus without complications; Z68.38 Body mass index [BMI] 38.0-38.9, adult; F17.210 Nicotine dependence, cigarettes, uncomplicated; Z20.822 Contact with and (suspected) exposure to COVID-19; Z71.6 Tobacco abuse counseling; Z88.1 Allergy status to other antibiotic agents; Z88.8 Allergy status to other drugs, medicaments and biological substances; Z79.82 Long term (current) use of aspirin; Z79.899 Other long term (current) drug therapy
CPT/HCPCS: 0241U; 71045; 71250; 80048; 80076; 80307; 81001; 82077; 82728; 82803; 82947; 83540; 83605; 83735; 83880; 84484; 85025; 85610; 87040; 87086; 93005; 94640; 94660; 99285; J0692; J1650; J2920; J2930; J3475

== ENCOUNTER → 2022-05-11 13:03 | Outpatient (BNVA) | payer OTHER, SELFPAY | PROVIDERS: PCP Nurse Practitioner Family; Visit Provider Internal Medicine Pulmonary Disease | DX: J44.9 Chronic obstructive pulmonary disease, unspecified (principal); G47.33 Obstructive sleep apnea (adult) (pediatric); E66.9 Obesity, unspecified; F17.210 Nicotine dependence, cigarettes, uncomplicated; Z68.36 Body mass index [BMI] 36.0-36.9, adult; Z99.89 Dependence on other enabling machines and devices | CPT/HCPCS: 99212 ==

== ENCOUNTER → 2022-05-21 15:05 | Outpatient (REF) | payer OTHER, SELFPAY | LOC: HO.SL 15:05 | PROVIDERS: PCP Nurse Practitioner Family; Visit Provider Internal Medicine Pulmonary Disease | DX: G47.33 Obstructive sleep apnea (adult) (pediatric) (principal) | CPT/HCPCS: 95806 ==

== ENCOUNTER 2022-08-03 15:57 | Emergency (ER) | payer OTHER, SELFPAY ==
[2022-08-03 16:12] VITALS: BP 105/66; BP 115/63; PULSE 103; PULSE 107; RESP 25; TEMP 36.9; O2SAT 92; O2SAT 95; BMI 38.1
--- NOTE | 2022-08-03 16:23 | ED_ITS ---
HPI - SOB/Dyspnea General Chief Complaint: Dyspnea Stated Complaint: copd exacerbation Time Seen by Provider: 08/03/22 16:22 Source: patient Mode of arrival: EMS Limitations: no limitations History of Present Illness HPI Narrative: 52-year-old lady, active 40+ pack-year smoker, with underlying obesity, HENRY not on CPAP, COPD not on oxygen, substance abuse, anxiety/panic attacks was doing okay today came home after shopping went up stairs quickly had a panic attack with shortness of breath was saturating 92% on 2 L patient received 2 nebulizing treatment by EMS with partial relief patient says this happens to her very often when she gets panic attack patient used cocaine 2 days ago Related Data Home Medications Medication Instructions Recorded Confirmed atorvastatin 80 mg tablet 80 mg PO BEDTIME 04/27/22 04/27/22 Previous Rx's Medication Instructions Recorded lancets 28 gauge (FreeStyle #100 ea 01/20/21 Lancets) dicyclomine 10 mg capsule 20 mg PO QID PRN for cramps #720 11/07/21 caps furosemide 20 mg tablet 20 mg PO BID #180 tabs 02/06/22 glipizide 5 mg tablet 5 mg PO DAILY 30 days #30 tabs 02/22/22 blood sugar diagnostic (FreeStyle #100 ea 03/01/22 Lite Strips) 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 meter (FreeStyle #1 ea 03/01/22 Lite Meter kit) theophylline 400 mg 400 mg PO BID 30 days #60 tabs 04/06/22 tablet,extended release 24 hr albuterol sulfate 90 mcg/actuation 2 puff inhalation Q6H PRN 05/09/22 aerosol inhaler (ProAir HFA) shortness of breath or wheezing 30 days #8.5 grams ibuprofen 800 mg tablet 800 mg PO BID PRN pain 30 days #90 05/09/22 tabs gabapentin 800 mg tablet 800 mg PO QID 30 days #120 tabs 05/10/22 prednisone 10 mg tablet 40 mg PO DAILY 7 days #28 tabs 05/11/22 tiotropium 2.5 mcg-olodaterol 2.5 2 puff inhalation DAILY 30 days #4 05/11/22 mcg/actuation mist for inhalation grams (Stiolto Respimat) ipratropium 0.5 mg-albuterol 3 mg 3 ml inhalation Q6-8H PRN for 05/15/22 (2.5 mg base)/3 mL nebulization wheezing #180 mL soln aspirin 81 mg tablet,delayed 81 mg PO DAILY 90 days #90 tabs 05/21/22 release dexlansoprazole 60 mg 60 mg PO DAILY #30 caps 05/30/22 capsule,biphase delayed release lubiprostone 8 mcg capsule 8 mcg PO BID #60 caps 05/30/22 (Amitiza) dulaglutide 0.75 mg/0.5 mL 0.75 mg (0.5 mL) subcut MO@1000 #2 06/21/22 subcutaneous pen injector mL (Trulicity) losartan 25 mg tablet 25 mg PO DAILY #30 tabs 06/21/22 famotidine 10 mg tablet 10 mg PO BEDTIME #90 tabs 07/17/22 (Zantac-360 (famotidine)) acetaminophen 650 mg 650 mg PO Q12H PRN pain 30 days 07/26/22 tablet,extended release #60 tabs tizanidine 4 mg tablet 4 mg PO Q8H PRN muscle spasm 30 07/27/22 days #90 tabs Allergies Allergy/AdvReac Type Severity Reaction Status Date / Time doxycycline Allergy Severe Swelling Verified 05/11/22 13:04 varenicline [From CHANTIX] Allergy Severe ANAPHYLAXIS Verified 05/11/22 13:04 barium sulfate Allergy Intermediate angioedema Verified 05/11/22 13:04 azithromycin Allergy Mild Rash Verified 05/11/22 13:04 cetirizine Allergy Mild Rash Verified 05/11/22 13:04 famotidine Allergy Mild Rash Verified 05/11/22 13:04 linaclotide [Linzess] Allergy Mild Rash Verified 05/11/22 13:04 Review of Systems Review of Systems: Yes all other systems are reviewed and are negative PMF Past Medical History Medical History Acute and chronic respiratory failure with hypercapnia Acute and chronic respiratory failure, unspecified whether with hypoxia or hypercapnia Acute and chronic respiratory failure, unspecified whether with hypoxia or hypercapnia Asthma Bustos's esophagus Carpal tunnel syndrome of right wrist Chest discomfort Chronic idiopathic constipation Chronic renal failure, stage 2 (mild) Cocaine abuse COPD (chronic obstructive pulmonary disease) COPD exacerbation Crack cocaine use Depression Diabetes mellitus Encounter for preoperative pulmonary examination Gastroparesis GERD (gastroesophageal reflux disease) Hernia High triglycerides HTN (hypertension) Knee pain, bilateral Nausea & vomiting Obesity (BMI 30-39.9) Respiratory failure Smoker Surgical History History of carpal tunnel release History of esophagogastroduodenoscopy (EGD) History of open reduction and internal fixation (ORIF) procedure History of pubovaginal sling History of umbilical hernia repair Hx of section Hx of cholecystectomy Hx of tubal ligation Family History Family History Father Heart disease HENRY (obstructive sleep apnea) Family history of breast cancer Mother Asthma Emphysema, unspecified Bronchitis Smoker Alcoholism Bone marrow disease Maternal Grandmother Diabetes Social History Social History Household Members: Unknown / Unable to assess Housing: Unknown / Unable to assess Are you a primary child care coordinator to a significant other at home: No Do you presently have visiting nurse or other home services: Yes (COMMUNICATION C[employer] COORDINATOR-daughter) Unable to assess alcohol history related to: Unknown Alcohol intake: never Patient Tobacco Use Status: Current everyday Tobacco user Tobacco use type: Cigarette Cigarette Packs Per Day: 10 Cigarettes Per Day: 200.0 Years Smoked: 35 Second Hand Smoke Exposure: No Substance Use Type: Crack/Cocaine Advance Directives: No Advance Directives Information Provided: No Advance Directives Date on File: 04/15/20 service: No Current occupational status: disabled 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 Oriented X3. No acute distress. Anxious Eyes: PERRLA, No Nystagmus ENT: Pharynx normal. Oral Mucosa moist Neck: Normal inspection. Neck supple. CVS: Normal heart rate and rhythm. Pulses normal. Respiratory: No respiratory distress. Equal air entry bilateral, decreased air entry bilateral no crackle Abdomen: Soft and nontender. Bowel sounds are present, Skin: Skin warm and dry. Normal skin color. Normal skin turgor. Extremities: No lower extremity edema. No calf tenderness Neuro: Oriented X 3. No motor deficit. Medications Administered Discontinued Medications Generic Name Dose Route Start Last Admin Trade Name Freq PRN Reason Stop Dose Admin Albuterol Sulfate 2.5 mg/ 0 mg 08/03/22 16:39 08/03/22 16:54 Albuterol/Ipratropium 3 ml INHALE 08/03/22 16:40 2.5 each ONCE ONE Administration Lorazepam 1 mg 08/03/22 17:21 08/03/22 17:33 Lorazepam 1 Mg Tablet PO 08/03/22 17:22 1 mg ONCE ONE Administration Medical Decision Making Medical Decision Making MDM Narrative: Patient panic attack with baseline COPD and sleep apnea received nebulizing treatment in the ER saturating 95% at room air patient would like to go home with her daughter advised to continue her treatment patient eloped before discharge instruction Discharge Plan Discharge Clinical Impression: COPD (chronic obstructive pulmonary disease), Panic attack Patient Disposition: Elopement Instructions: COPD (Chronic Obstructive Pulmonary Disease) (ED), Panic Disorder (ED) Additional Instructions: Take nebulizer treatment every 4 hours as needed and follow with PCP Prescriptions: No Action (DME) lancets [FreeStyle Lancets] 28 gauge misc See Rx Instructions .ROUTE .MEDSUPPLY Qty: 100 1RF Rx Instructions: Use to check blood sugar daily or if symptomatic hypo/hypergylcemia dicyclomine 10 mg capsule 20 mg PO QID PRN (Reason: for cramps) Qty: 720 1RF furosemide 20 mg tablet 20 mg PO BID Qty: 180 2RF glipizide 5 mg tablet 5 mg PO DAILY 30 Days Qty: 30 4RF (DME) FreeStyle Lite Strips Strip See Rx Instructions .ROUTE .MEDSUPPLY Qty: 100 1RF Rx Instructions: Use to check blood sugar daily or if symptomatic hypo/hypergylcemia (DME) 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 meter [FreeStyle Lite Meter] Kit See Rx Instructions .ROUTE .MEDSUPPLY Qty: 1 0RF Rx Instructions: Use to check blood sugar daily or if symptomatic for hypo/hyperglycemia albuterol sulfate [ProAir HFA] 90 mcg/actuation HFA aerosol inhaler 2 puff inhalation Q6H PRN (Reason: shortness of breath or wheezing) 30 Days Qty: 8.5 4RF Rx Instructions: proair ibuprofen 800 mg tablet 800 mg PO BID PRN (Reason: pain) 30 Days Qty: 90 1RF gabapentin 800 mg tablet 800 mg PO QID 30 Days Qty: 120 2RF ipratropium-albuterol 0.5 mg-3 mg(2.5 mg base)/3 mL solution for nebulization 3 ml inhalation Q6-8H PRN (Reason: for wheezing) Qty: 180 6RF aspirin 81 mg tablet,delayed release (DR/EC) 81 mg PO DAILY 90 Days Qty: 90 0RF dexlansoprazole 60 mg capsule,biphase delayed releas 60 mg PO DAILY Qty: 30 1RF lubiprostone [Amitiza] 8 mcg capsule 8 mcg PO BID Qty: 60 3RF Trulicity 0.75 mg/0.5 mL pen injector 0.75 mg subcut MO@1000 Qty: 2 1RF losartan 25 mg tablet 25 mg PO DAILY Qty: 30 3RF famotidine [Zantac-360 (famotidine)] 10 mg tablet 10 mg PO BEDTIME Qty: 90 0RF acetaminophen 650 mg tablet extended release 650 mg PO Q12H PRN (Reason: pain) 30 Days Qty: 60 0RF tizanidine 4 mg tablet 4 mg PO Q8H PRN (Reason: muscle spasm) 30 Days Qty: 90 0RF atorvastatin 80 mg tablet 80 mg PO BEDTIME prednisone 10 mg tablet 40 mg PO DAILY 7 Days Qty: 28 0RF Stiolto Respimat 2.5-2.5 mcg/actuation mist 2 puff inhalation DAILY 30 Days Qty: 4 6RF theophylline 400 mg tablet extended release 24 hr 400 mg PO BID 30 Days Qty: 60 6RF Discharge Date/Time: 08/03/22 18:19
[2022-08-03 16:52] VITALS: PULSE 100; RESP 16; O2SAT 94
[2022-08-03 17:32] VITALS: BP 104/71; PULSE 96; RESP 22; TEMP 36.9; O2SAT 95
[2022-08-03] MEDS: LORazepam 1 MG TABLET PO (17:33)
[2022-08-03 18:00] VITALS: BP 99/62; PULSE 101; RESP 16; TEMP 36.7; O2SAT 95
--- NOTE | 2022-08-03 18:18 | PC.NURSE ---
Patient stating I need to leave my daughter is not going to wait any longer and she is my ride. Provider made aware. Patient leaving without discharge paperwork.
== END 2022-08-03 18:19 | disposition left against medical advice (07) ==
PROVIDERS: Emergency Provider Internal Medicine; PCP Nurse Practitioner Family
DX: J44.9 Chronic obstructive pulmonary disease, unspecified (principal); F41.0 Panic disorder [episodic paroxysmal anxiety]; R06.02 Shortness of breath; F17.210 Nicotine dependence, cigarettes, uncomplicated; Z71.6 Tobacco abuse counseling; Z79.899 Other long term (current) drug therapy
CPT/HCPCS: 94640; 99284

== ENCOUNTER 2022-08-03 18:26 | Emergency (ER) | payer OTHER, SELFPAY ==
--- NOTE | ~2022-08-03 | XR_ITS ---
EXAMINATION: XR CHEST CLINICAL INFORMATION: Chest pain COMPARISON: X-ray 04/27/2022 TECHNIQUE: 2 views of the chest were obtained. FINDINGS: Stable cardiac and mediastinal silhouette. Mild central vascular prominence. There are bibasilar airspace opacities. Based on the lateral projection, previously predominantly in the right middle lobe/lingula. The upper lungs are clear. No overt pulmonary edema. No pneumothorax. Possible small bilateral pleural effusions. Multilevel degenerative changes in the spine. XR/XR chest 2V IMPRESSION: Bibasilar airspace opacities, right greater than left. This may reflect atelectasis or infiltrate, appears to be predominantly in the right middle lobe and lingula. Possible small pleural effusions.
[2022-08-03 18:33] VITALS: BP 112/59; PULSE 113; RESP 20; TEMP 36.1; O2SAT 94; BMI 37.3
--- NOTE | 2022-08-03 18:34 | ED.GENADULT ---
HPI - General Adult General Chief complaint: Anxiety Stated complaint: Chest pain Time Seen by Provider: 08/03/22 20:46 Related Data Home Medications Medication Instructions Recorded Confirmed atorvastatin 80 mg tablet 80 mg PO BEDTIME 04/27/22 04/27/22 Previous Rx's Medication Instructions Recorded lancets 28 gauge (FreeStyle #100 ea 01/20/21 Lancets) dicyclomine 10 mg capsule 20 mg PO QID PRN for cramps #720 11/07/21 caps furosemide 20 mg tablet 20 mg PO BID #180 tabs 02/06/22 glipizide 5 mg tablet 5 mg PO DAILY 30 days #30 tabs 02/22/22 blood sugar diagnostic (FreeStyle #100 ea 03/01/22 Lite Strips) 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 meter (FreeStyle #1 ea 03/01/22 Lite Meter kit) theophylline 400 mg 400 mg PO BID 30 days #60 tabs 04/06/22 tablet,extended release 24 hr albuterol sulfate 90 mcg/actuation 2 puff inhalation Q6H PRN 05/09/22 aerosol inhaler (ProAir HFA) shortness of breath or wheezing 30 days #8.5 grams ibuprofen 800 mg tablet 800 mg PO BID PRN pain 30 days #90 05/09/22 tabs gabapentin 800 mg tablet 800 mg PO QID 30 days #120 tabs 05/10/22 prednisone 10 mg tablet 40 mg PO DAILY 7 days #28 tabs 05/11/22 tiotropium 2.5 mcg-olodaterol 2.5 2 puff inhalation DAILY 30 days #4 05/11/22 mcg/actuation mist for inhalation grams (Stiolto Respimat) ipratropium 0.5 mg-albuterol 3 mg 3 ml inhalation Q6-8H PRN for 05/15/22 (2.5 mg base)/3 mL nebulization wheezing #180 mL soln aspirin 81 mg tablet,delayed 81 mg PO DAILY 90 days #90 tabs 05/21/22 release dexlansoprazole 60 mg 60 mg PO DAILY #30 caps 05/30/22 capsule,biphase delayed release lubiprostone 8 mcg capsule 8 mcg PO BID #60 caps 05/30/22 (Amitiza) dulaglutide 0.75 mg/0.5 mL 0.75 mg (0.5 mL) subcut MO@1000 #2 06/21/22 subcutaneous pen injector mL (Trulicity) losartan 25 mg tablet 25 mg PO DAILY #30 tabs 06/21/22 famotidine 10 mg tablet 10 mg PO BEDTIME #90 tabs 07/17/22 (Zantac-360 (famotidine)) acetaminophen 650 mg 650 mg PO Q12H PRN pain 30 days 07/26/22 tablet,extended release #60 tabs tizanidine 4 mg tablet 4 mg PO Q8H PRN muscle spasm 30 07/27/22 days #90 tabs amoxicillin 500 mg tablet 1,000 mg PO TID 7 days #42 tabs 08/03/22 Allergies Allergy/AdvReac Type Severity Reaction Status Date / Time doxycycline Allergy Severe Swelling Verified 05/11/22 13:04 varenicline [From CHANTIX] Allergy Severe ANAPHYLAXIS Verified 05/11/22 13:04 barium sulfate Allergy Intermediate angioedema Verified 05/11/22 13:04 azithromycin Allergy Mild Rash Verified 05/11/22 13:04 cetirizine Allergy Mild Rash Verified 05/11/22 13:04 famotidine Allergy Mild Rash Verified 05/11/22 13:04 linaclotide [Linzess] Allergy Mild Rash Verified 05/11/22 13:04 [facility] Past Medical History Medical History Acute and chronic respiratory failure with hypercapnia Acute and chronic respiratory failure, unspecified whether with hypoxia or hypercapnia Acute and chronic respiratory failure, unspecified whether with hypoxia or hypercapnia Asthma Bustos's esophagus Carpal tunnel syndrome of right wrist Chest discomfort Chronic idiopathic constipation Chronic renal failure, stage 2 (mild) Cocaine abuse COPD (chronic obstructive pulmonary disease) COPD exacerbation Crack cocaine use Depression Diabetes mellitus Encounter for preoperative pulmonary examination Gastroparesis GERD (gastroesophageal reflux disease) Hernia High triglycerides HTN (hypertension) Knee pain, bilateral Nausea & vomiting Obesity (BMI 30-39.9) Respiratory failure Smoker Surgical History History of carpal tunnel release History of esophagogastroduodenoscopy (EGD) History of open reduction and internal fixation (ORIF) procedure History of pubovaginal sling History of umbilical hernia repair Hx of section Hx of cholecystectomy Hx of tubal ligation Family History Family History Father Heart disease HENRY (obstructive sleep apnea) Family history of breast cancer Mother Asthma Emphysema, unspecified Bronchitis Smoker Alcoholism Bone marrow disease Maternal Grandmother Diabetes Social History Social History Household Members: Unknown / Unable to assess Housing: Unknown / Unable to assess Are you a primary healthcare network consultant to a significant other at home: No Do you presently have visiting nurse or other home services: Yes ([employer]-daughter) Unable to assess alcohol history related to: Unknown Alcohol intake: never Patient Tobacco Use Status: Current everyday Tobacco user Tobacco use type: Cigarette Cigarette Packs Per Day: 10 Cigarettes Per Day: 200.0 Years Smoked: 35 Second Hand Smoke Exposure: No Substance Use Type: Crack/Cocaine Advance Directives: No Advance Directives Information Provided: No Advance Directives Date on File: 04/15/20 service: No Current occupational status: disabled 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 Patient is a 52 year old female presenting to the emergency department with chest pain and anxiety. Patient states that she was trying to get into the car that came to pick her up when she began to have chest pain and anxiety. Medications Administered Discontinued Medications Generic Name Dose Route Start Last Admin Trade Name Freq PRN Reason Stop Dose Admin Acetaminophen 975 mg 08/03/22 21:23 08/03/22 21:32 Acetaminophen 325 Mg Tablet PO 08/03/22 21:24 975 mg ONCE ONE Administration Amoxicillin 1,000 mg 08/03/22 21:21 08/03/22 21:32 Amoxicillin 500 Mg Capsule PO 08/03/22 21:22 1,000 mg ONCE ONE Administration Ibuprofen 400 mg 08/03/22 21:23 08/03/22 21:32 Ibuprofen 400 Mg Tablet PO 08/03/22 21:24 400 mg ONCE ONE Administration Medical Decision Making Lab Data 08/03/22 18:58 08/03/22 18:58 Labs: Lab Results 08/03/22 08/03/22 08/03/22 Range/Units 18:58 18:58 18:58 WBC 13.6 H (4.8-10.8) X10*3/uL RBC 5.24 (4.20-5.50) X10*6/uL Hgb 12.6 (12.0-16.0) g/dl Hct 40.7 (37.0-47.0) % MCV 77.7 L (80.0-98.0) fL MCH 24.0 L (27.0-33.0) pg MCHC 31.0 (31.0-35.0) g/dl RDW 18.1 H (11.0-16.0) % Plt Count 386 (160-400) X10*3/uL MPV 9.1 L (9.4-12.3) fL Immature Gran % (Auto) 0.4 (0.0-0.4) % Neut % (Auto) 72.3 (45-73) % Lymph % (Auto) 19.9 L (20-40) % Emanuel % (Auto) 6.3 (2-11) % Eos % (Auto) 0.7 (0-4) % Baso % (Auto) 0.4 (0-2) % Lymph # (Auto) 2.7 (1.2-4.9) X10*3/uL Emanuel # (Auto) 0.9 (0.1-1.2) X10*3/uL Eos # (Auto) 0.1 (0.0-0.4) X10*3/uL Baso # (Auto) 0.1 (0.0-0.2) X10*3/uL Abs Immat Gran (auto) 0.05 H (0.00-0.03) X10*3/uL Absolute Neuts (auto) 9.8 H (2.0-8.3) x10*3/uL Absolute Nucleated RBC 0.000 (0.0-0.012) X10*3/uL Nucleated RBC % (auto) 0.0 (0.0-0.2) /100WBC Sodium 140 (135-145) mmol/L Potassium 3.1 L (3.3-5.1) mmol/L Chloride 103 (96-108) mmol/L Carbon Dioxide 23 (22-29) mmol/L Anion Gap 17 (12-20) BUN 12 (9-16) mg/dL Creatinine 0.84 (0.5-1.4) mg/dL Estim Creat Clear Calc 71.8 Estimated GFR > 60 Random Glucose 144 H (60-115) mg/dL Calcium 8.7 (8.4-10.2) mg/dL Total Bilirubin 0.2 (0.0-1.0) mg/dL AST 9 (5-31) U/L ALT 8 (0-31) U/L Alkaline Phosphatase 102 (39-117) U/L Troponin I High Sens 6.6 (<3.5-17.0) ng/L Total Protein 6.3 L (6.5-8.0) g/dL Albumin 4.0 (3.5-5.0) g/dL Influenza Type A (PCR) (Negative) Influenza Type B (PCR) (Negative) RSV RNA Qual (PCR) (Negative) SARS-CoV-2 RNA (RT-PCR) (Negative) 08/03/22 08/03/22 Range/Units 18:58 20:58 WBC (4.8-10.8) X10*3/uL RBC (4.20-5.50) X10*6/uL Hgb (12.0-16.0) g/dl Hct (37.0-47.0) % MCV (80.0-98.0) fL MCH (27.0-33.0) pg MCHC (31.0-35.0) g/dl RDW (11.0-16.0) % Plt Count (160-400) X10*3/uL MPV (9.4-12.3) fL Immature Gran % (Auto) (0.0-0.4) % Neut % (Auto) (45-73) % Lymph % (Auto) (20-40) % Emanuel % (Auto) (2-11) % Eos % (Auto) (0-4) % Baso % (Auto) (0-2) % Lymph # (Auto) (1.2-4.9) X10*3/uL Emanuel # (Auto) (0.1-1.2) X10*3/uL Eos # (Auto) (0.0-0.4) X10*3/uL Baso # (Auto) (0.0-0.2) X10*3/uL Abs Immat Gran (auto) (0.00-0.03) X10*3/uL Absolute Neuts (auto) (2.0-8.3) x10*3/uL Absolute Nucleated RBC (0.0-0.012) X10*3/uL Nucleated RBC % (auto) (0.0-0.2) /100WBC Sodium (135-145) mmol/L Potassium (3.3-5.1) mmol/L Chloride (96-108) mmol/L Carbon Dioxide (22-29) mmol/L Anion Gap (12-20) BUN (9-16) mg/dL Creatinine (0.5-1.4) mg/dL Estim Creat Clear Calc Estimated GFR Random Glucose (60-115) mg/dL Calcium (8.4-10.2) mg/dL Total Bilirubin (0.0-1.0) mg/dL AST (5-31) U/L ALT (0-31) U/L Alkaline Phosphatase (39-117) U/L Troponin I High Sens 6.6 (<3.5-17.0) ng/L Total Protein (6.5-8.0) g/dL Albumin (3.5-5.0) g/dL Influenza Type A (PCR) NEGATIVE (Negative) Influenza Type B (PCR) NEGATIVE (Negative) RSV RNA Qual (PCR) NEGATIVE (Negative) SARS-CoV-2 RNA (RT-PCR) NEGATIVE (Negative) Discharge Plan Discharge Clinical Impression: Pneumonia Patient Disposition: Home, Self-Care Instructions: Pneumonia (ED) Additional Instructions: 1. Resume all home medications. 2. Complete the entire course of antibiotics as ordered. 3. Follow-up with your primary care provider on Saturday morning. Return to the ER for any worsening symptoms. Prescriptions: New amoxicillin 500 mg tablet 1,000 mg PO TID 7 Days Qty: 42 0RF No Action (DME) lancets [FreeStyle Lancets] 28 gauge misc See Rx Instructions .ROUTE .MEDSUPPLY Qty: 100 1RF Rx Instructions: Use to check blood sugar daily or if symptomatic hypo/hypergylcemia dicyclomine 10 mg capsule 20 mg PO QID PRN (Reason: for cramps) Qty: 720 1RF furosemide 20 mg tablet 20 mg PO BID Qty: 180 2RF glipizide 5 mg tablet 5 mg PO DAILY 30 Days Qty: 30 4RF (DME) FreeStyle Lite Strips Strip See Rx Instructions .ROUTE .MEDSUPPLY Qty: 100 1RF Rx Instructions: Use to check blood sugar daily or if symptomatic hypo/hypergylcemia (DME) 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 meter [FreeStyle Lite Meter] Kit See Rx Instructions .ROUTE .MEDSUPPLY Qty: 1 0RF Rx Instructions: Use to check blood sugar daily or if symptomatic for hypo/hyperglycemia albuterol sulfate [ProAir HFA] 90 mcg/actuation HFA aerosol inhaler 2 puff inhalation Q6H PRN (Reason: shortness of breath or wheezing) 30 Days Qty: 8.5 4RF Rx Instructions: proair ibuprofen 800 mg tablet 800 mg PO BID PRN (Reason: pain) 30 Days Qty: 90 1RF gabapentin 800 mg tablet 800 mg PO QID 30 Days Qty: 120 2RF ipratropium-albuterol 0.5 mg-3 mg(2.5 mg base)/3 mL solution for nebulization 3 ml inhalation Q6-8H PRN (Reason: for wheezing) Qty: 180 6RF aspirin 81 mg tablet,delayed release (DR/EC) 81 mg PO DAILY 90 Days Qty: 90 0RF dexlansoprazole 60 mg capsule,biphase delayed releas 60 mg PO DAILY Qty: 30 1RF lubiprostone [Amitiza] 8 mcg capsule 8 mcg PO BID Qty: 60 3RF Trulicity 0.75 mg/0.5 mL pen injector 0.75 mg subcut MO@1000 Qty: 2 1RF losartan 25 mg tablet 25 mg PO DAILY Qty: 30 3RF famotidine [Zantac-360 (famotidine)] 10 mg tablet 10 mg PO BEDTIME Qty: 90 0RF acetaminophen 650 mg tablet extended release 650 mg PO Q12H PRN (Reason: pain) 30 Days Qty: 60 0RF tizanidine 4 mg tablet 4 mg PO Q8H PRN (Reason: muscle spasm) 30 Days Qty: 90 0RF atorvastatin 80 mg tablet 80 mg PO BEDTIME prednisone 10 mg tablet 40 mg PO DAILY 7 Days Qty: 28 0RF Stiolto Respimat 2.5-2.5 mcg/actuation mist 2 puff inhalation DAILY 30 Days Qty: 4 6RF theophylline 400 mg tablet extended release 24 hr 400 mg PO BID 30 Days Qty: 60 6RF Referrals: Joe Hale, NEGATIVE RETOUCHER-BC [Primary Care Provider] -
--- NOTE | 2022-08-03 18:36 | ECG_ITS ---
Test Reason : CHEST PAIN Blood Pressure : / mmHG Vent. Rate : 110 BPM Atrial Rate : 110 BPM P-R Int : 142 ms QRS Dur : 082 ms QT Int : 388 ms P-R-T Axes : 063 117 044 degrees QTc Int : 525 ms Sinus tachycardia Low voltage QRS Left posterior fascicular block Prolonged QT Abnormal ECG When compared with ECG of 27-APR-2022 10:47, Aberrant conduction is no longer Present Non-specific change in ST segment in Lateral leads QT has lengthened Referred By: Ermelinda Parrish Electronically Signed By:Dallin Birmingham
[2022-08-03 19:03] LABS: MANUAL DIFF FLAG NO
[2022-08-03 19:06] LABS: Basophils Absolute Auto 0.1 X10*3/uL (0.0-0.2); Basophils Percent Auto 0.4 % (0-2); Eosinophils Absolute Auto 0.1 X10*3/uL (0.0-0.4); Eosinophils Percent Auto 0.7 % (0-4); Hematocrit 40.7 % (37.0-47.0); Hemoglobin 12.6 g/dl (12.0-16.0); Imm Gran Abs Auto 0.05 X10*3/uL (0.00-0.03); Imm Gran Pct Auto 0.4 % (0.0-0.4); Lymphocytes Absolute Auto 2.7 X10*3/uL (1.2-4.9); Lymphocytes Percent Auto 19.9 % (20-40); Mean Corpuscular Volume 77.7 fL (80.0-98.0); Mean Platelet Volume 9.1 fL (9.4-12.3); Monocytes Absolute Auto 0.9 X10*3/uL (0.1-1.2); Monocytes Percent Auto 6.3 % (2-11); Neutrophils Absolute Auto 9.8 x10*3/uL (2.0-8.3); Neutrophils Percent Auto 72.3 % (45-73); Platelet Count 386 X10*3/uL (160-400); Red Blood Count 5.24 X10*6/uL (4.20-5.50); Red Cell Distribution Width 18.1 % (11.0-16.0); White Blood Count 13.6 X10*3/uL (4.8-10.8)
[2022-08-03 19:24] LABS: Alanine Aminotransferase 8 U/L (0-31); Alkaline Phosphatase 102 U/L (39-117); Anion Gap 17 (12-20); Aspartate Amino Transferase 9 U/L (5-31); Bilirubin Total 0.2 mg/dL (0.0-1.0); Blood Urea Nitrogen 12 mg/dL (9-16); Calcium 8.7 mg/dL (8.4-10.2); Carbon Dioxide 23 mmol/L (22-29); Chloride 103 mmol/L (96-108); Creatinine Clr Calc Pharmacy 71.8; Estimated Glomerular Filt Rate > 60; Glucose Random 144 mg/dL (60-115); Potassium 3.1 mmol/L (3.3-5.1); Sodium 140 mmol/L (135-145); Total Protein 6.3 g/dL (6.5-8.0)
[2022-08-03 19:31] LABS: Troponin-I High Sensitivity 6.6 ng/L (<3.5-17.0)
[2022-08-03 19:41] LABS: Influenza A PCR NEGATIVE (Negative); Influenza B PCR NEGATIVE (Negative); Resp Syncy Virus RNA Qual PCR NEGATIVE (Negative); SARS COV2 PCR INHOUSE NEGATIVE (Negative)
--- NOTE | 2022-08-03 21:24 | ED_ITS ---
HPI - Chest Pain General Chief Complaint: Anxiety Stated Complaint: Chest pain Time Seen by Provider: 08/03/22 20:46 Source: patient Mode of arrival: ambulatory History of Present Illness HPI narrative: 52-year-old female who presents with increasing shortness of breath as well as chest pain which is located on the right side in increases with deep inspiration that is been an ongoing for 2-3 days. She denies any diaphoresis, nausea, ra diation of the chest pain denies any recent travel. Patient also describes some anxiety symptoms secondary to the chest pain. Related Data Home Medications Medication Instructions Recorded Confirmed atorvastatin 80 mg tablet 80 mg PO BEDTIME 04/27/22 04/27/22 Previous Rx's Medication Instructions Recorded lancets 28 gauge (FreeStyle #100 ea 01/20/21 Lancets) dicyclomine 10 mg capsule 20 mg PO QID PRN for cramps #720 11/07/21 caps furosemide 20 mg tablet 20 mg PO BID #180 tabs 02/06/22 glipizide 5 mg tablet 5 mg PO DAILY 30 days #30 tabs 02/22/22 blood sugar diagnostic (FreeStyle #100 ea 03/01/22 Lite Strips) 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 meter (FreeStyle #1 ea 03/01/22 Lite Meter kit) theophylline 400 mg 400 mg PO BID 30 days #60 tabs 04/06/22 tablet,extended release 24 hr albuterol sulfate 90 mcg/actuation 2 puff inhalation Q6H PRN 05/09/22 aerosol inhaler (ProAir HFA) shortness of breath or wheezing 30 days #8.5 grams ibuprofen 800 mg tablet 800 mg PO BID PRN pain 30 days #90 05/09/22 tabs gabapentin 800 mg tablet 800 mg PO QID 30 days #120 tabs 05/10/22 prednisone 10 mg tablet 40 mg PO DAILY 7 days #28 tabs 05/11/22 tiotropium 2.5 mcg-olodaterol 2.5 2 puff inhalation DAILY 30 days #4 05/11/22 mcg/actuation mist for inhalation grams (Stiolto Respimat) ipratropium 0.5 mg-albuterol 3 mg 3 ml inhalation Q6-8H PRN for 05/15/22 (2.5 mg base)/3 mL nebulization wheezing #180 mL soln aspirin 81 mg tablet,delayed 81 mg PO DAILY 90 days #90 tabs 05/21/22 release dexlansoprazole 60 mg 60 mg PO DAILY #30 caps 05/30/22 capsule,biphase delayed release lubiprostone 8 mcg capsule 8 mcg PO BID #60 caps 05/30/22 (Amitiza) dulaglutide 0.75 mg/0.5 mL 0.75 mg (0.5 mL) subcut MO@1000 #2 06/21/22 subcutaneous pen injector mL (Trulicity) losartan 25 mg tablet 25 mg PO DAILY #30 tabs 06/21/22 famotidine 10 mg tablet 10 mg PO BEDTIME #90 tabs 07/17/22 (Zantac-360 (famotidine)) acetaminophen 650 mg 650 mg PO Q12H PRN pain 30 days 07/26/22 tablet,extended release #60 tabs tizanidine 4 mg tablet 4 mg PO Q8H PRN muscle spasm 30 07/27/22 days #90 tabs amoxicillin 500 mg tablet 1,000 mg PO TID 7 days #42 tabs 08/03/22 Allergies Allergy/AdvReac Type Severity Reaction Status Date / Time doxycycline Allergy Severe Swelling Verified 05/11/22 13:04 varenicline [From CHANTIX] Allergy Severe ANAPHYLAXIS Verified 05/11/22 13:04 barium sulfate Allergy Intermediate angioedema Verified 05/11/22 13:04 azithromycin Allergy Mild Rash Verified 05/11/22 13:04 cetirizine Allergy Mild Rash Verified 05/11/22 13:04 famotidine Allergy Mild Rash Verified 05/11/22 13:04 linaclotide [Linzess] Allergy Mild Rash Verified 05/11/22 13:04 Review of Systems Review of Systems: Pertinent positives and negatives as stated in HPI [facility] Past Medical History Source: nursing notes reviewed Medical History Acute and chronic respiratory failure with hypercapnia Acute and chronic respiratory failure, unspecified whether with hypoxia or hypercapnia Acute and chronic respiratory failure, unspecified whether with hypoxia or hypercapnia Asthma Bustos's esophagus Carpal tunnel syndrome of right wrist Chest discomfort Chronic idiopathic constipation Chronic renal failure, stage 2 (mild) Cocaine abuse COPD (chronic obstructive pulmonary disease) COPD exacerbation Crack cocaine use Depression Diabetes mellitus Encounter for preoperative pulmonary examination Gastroparesis GERD (gastroesophageal reflux disease) Hernia High triglycerides HTN (hypertension) Knee pain, bilateral Nausea & vomiting Obesity (BMI 30-39.9) Respiratory failure Smoker Surgical History History of carpal tunnel release History of esophagogastroduodenoscopy (EGD) History of open reduction and internal fixation (ORIF) procedure History of pubovaginal sling History of umbilical hernia repair Hx of section Hx of cholecystectomy Hx of tubal ligation Family History Family History Father Heart disease HENRY (obstructive sleep apnea) Family history of breast cancer Mother Asthma Emphysema, unspecified Bronchitis Smoker Alcoholism Bone marrow disease Maternal Grandmother Diabetes Social History Social History Household Members: Unknown / Unable to assess Housing: Unknown / Unable to assess Are you a primary caretaker to a significant other at home: No Do you presently have visiting nurse or other home services: Yes ([employer]-daughter) Unable to assess alcohol history related to: Unknown Alcohol intake: never Patient Tobacco Use Status: Current everyday Tobacco user Tobacco use type: Cigarette Cigarette Packs Per Day: 10 Cigarettes Per Day: 200.0 Years Smoked: 35 Second Hand Smoke Exposure: No Substance Use Type: Crack/Cocaine Advance Directives: No Advance Directives Information Provided: No Advance Directives Date on File: 04/15/20 service: No Current occupational status: disabled 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 GENERAL: Well developed, well nourished, in no acute distress. HEAD: Normocephalic/atraumatic EYES: PERRLA, EOMI EARS: Ext canals without abnormality OROPHARYNX: no oral lesions noted, posterior pharynx clear LUNGS: Good inspiratory effort, mildly decreased on the right, no tachypnea/wheeze/rhonchi. SpO2<94> CARDIOVASCULAR: Regular rate and rhythm without noted murmurs, no JVD or lower extremity edema. ABDOMEN: Soft, non-tender, non-distended with bowel sounds. MUSCULOSKELETAL: No tenderness, deformities, or effusions noted on gross inspection. EXTREMITIES: No cyanosis, clubbing or edema. SKIN: Inspection of the skin reveals no rashes NEUROLOGIC: Alert and oriented x 4. Strength and sensation to light touch were grossly intact x 4. Medications Administered Discontinued Medications Generic Name Dose Route Start Last Admin Trade Name Freq PRN Reason Stop Dose Admin Acetaminophen 975 mg 08/03/22 21:23 08/03/22 21:32 Acetaminophen 325 Mg Tablet PO 08/03/22 21:24 975 mg ONCE ONE Administration Amoxicillin 1,000 mg 08/03/22 21:21 08/03/22 21:32 Amoxicillin 500 Mg Capsule PO 08/03/22 21:22 1,000 mg ONCE ONE Administration Ibuprofen 400 mg 08/03/22 21:23 08/03/22 21:32 Ibuprofen 400 Mg Tablet PO 08/03/22 21:24 400 mg ONCE ONE Administration Potassium Chloride 60 meq 08/03/22 21:28 08/03/22 21:43 Potassium Chloride Er 20 Meq Tab.Er.Prt PO 08/03/22 21:29 60 meq ONCE ONE Administration Medical Decision Making Medical Decision Making [facility] Narrative: 52-year-old female with history and clinical presentation most consistent after review of all investigations community-acquired pneumonia. Patient is not tachycardic, nor is she tachypneic, she is oxygenating 94% on room air. Patient was informed of all results and otherwise serial troponins and EKG are not consistent with underlying cardiac issue and I have low clinical suspicion for PE. Patient received initial antibiotics here in the emergency room and then discharged home in stable condition. Patient will be treated for 7 days given that she has underlying diabetes. In addition, her potassium was noted to be mildly low and she was repleted with 60 mEq p.o.. Differential Diagnosis Differential Diagnoses: The differential diagnosis associated with the presentation includes Please see the discussion above Lab Data [facility] Lab Attestation statement: I reviewed the patient's lab results. Please see the discussion above 08/03/22 18:58 08/03/22 18:58 Labs: Lab Results 08/03/22 08/03/22 08/03/22 Range/Units 18:58 18:58 18:58 WBC 13.6 H (4.8-10.8) X10*3/uL RBC 5.24 (4.20-5.50) X10*6/uL Hgb 12.6 (12.0-16.0) g/dl Hct 40.7 (37.0-47.0) % MCV 77.7 L (80.0-98.0) fL MCH 24.0 L (27.0-33.0) pg MCHC 31.0 (31.0-35.0) g/dl RDW 18.1 H (11.0-16.0) % Plt Count 386 (160-400) X10*3/uL MPV 9.1 L (9.4-12.3) fL Immature Gran % (Auto) 0.4 (0.0-0.4) % Neut % (Auto) 72.3 (45-73) % Lymph % (Auto) 19.9 L (20-40) % [place] % (Auto) 6.3 (2-11) % Eos % (Auto) 0.7 (0-4) % Baso % (Auto) 0.4 (0-2) % Lymph # (Auto) 2.7 (1.2-4.9) X10*3/uL [place] # (Auto) 0.9 (0.1-1.2) X10*3/uL Eos # (Auto) 0.1 (0.0-0.4) X10*3/uL Baso # (Auto) 0.1 (0.0-0.2) X10*3/uL Abs Immat Gran (auto) 0.05 H (0.00-0.03) X10*3/uL Absolute Neuts (auto) 9.8 H (2.0-8.3) x10*3/uL Absolute Nucleated RBC 0.000 (0.0-0.012) X10*3/uL Nucleated RBC % (auto) 0.0 (0.0-0.2) /100WBC Sodium 140 (135-145) mmol/L Potassium 3.1 L (3.3-5.1) mmol/L Chloride 103 (96-108) mmol/L Carbon Dioxide 23 (22-29) mmol/L Anion Gap 17 (12-20) BUN 12 (9-16) mg/dL Creatinine 0.84 (0.5-1.4) mg/dL Estim Creat Clear Calc 71.8 Estimated GFR > 60 Random Glucose 144 H (60-115) mg/dL Calcium 8.7 (8.4-10.2) mg/dL Magnesium 1.7 (1.6-2.6) mg/dL Total Bilirubin 0.2 (0.0-1.0) mg/dL AST 9 (5-31) U/L ALT 8 (0-31) U/L Alkaline Phosphatase 102 (39-117) U/L Troponin I High Sens 6.6 (<3.5-17.0) ng/L Total Protein 6.3 L (6.5-8.0) g/dL Albumin 4.0 (3.5-5.0) g/dL Influenza Type A (PCR) (Negative) Influenza Type B (PCR) (Negative) RSV RNA Qual (PCR) (Negative) SARS-CoV-2 RNA (RT-PCR) (Negative) 08/03/22 08/03/22 Range/Units 18:58 20:58 WBC (4.8-10.8) X10*3/uL RBC (4.20-5.50) X10*6/uL Hgb (12.0-16.0) g/dl Hct (37.0-47.0) % MCV (80.0-98.0) fL MCH (27.0-33.0) pg MCHC (31.0-35.0) g/dl RDW (11.0-16.0) % Plt Count (160-400) X10*3/uL MPV (9.4-12.3) fL Immature Gran % (Auto) (0.0-0.4) % Neut % (Auto) (45-73) % Lymph % (Auto) (20-40) % [place] % (Auto) (2-11) % Eos % (Auto) (0-4) % Baso % (Auto) (0-2) % Lymph # (Auto) (1.2-4.9) X10*3/uL [place] # (Auto) (0.1-1.2) X10*3/uL Eos # (Auto) (0.0-0.4) X10*3/uL Baso # (Auto) (0.0-0.2) X10*3/uL Abs Immat Gran (auto) (0.00-0.03) X10*3/uL Absolute Neuts (auto) (2.0-8.3) x10*3/uL Absolute Nucleated RBC (0.0-0.012) X10*3/uL Nucleated RBC % (auto) (0.0-0.2) /100WBC Sodium (135-145) mmol/L Potassium (3.3-5.1) mmol/L Chloride (96-108) mmol/L Carbon Dioxide (22-29) mmol/L Anion Gap (12-20) BUN (9-16) mg/dL Creatinine (0.5-1.4) mg/dL Estim Creat Clear Calc Estimated GFR Random Glucose (60-115) mg/dL Calcium (8.4-10.2) mg/dL Magnesium (1.6-2.6) mg/dL Total Bilirubin (0.0-1.0) mg/dL AST (5-31) U/L ALT (0-31) U/L Alkaline Phosphatase (39-117) U/L Troponin I High Sens 6.6 (<3.5-17.0) ng/L Total Protein (6.5-8.0) g/dL Albumin (3.5-5.0) g/dL Influenza Type A (PCR) NEGATIVE (Negative) Influenza Type B (PCR) NEGATIVE (Negative) RSV RNA Qual (PCR) NEGATIVE (Negative) SARS-CoV-2 RNA (RT-PCR) NEGATIVE (Negative) Independent Interpretation I performed an independent interpretation of an: EKG Interpretation: Sinus tachycardia, HR-110, no STEMI, HI/QRS are within normal limits, QTC is prolonged. Radiology Impression Radiologist Impression: My interpretation is in agreement with radiology's impression of the imaging study. External Record Review External record reviewed: Outpatient record and Prior outpatient labs Chronic Conditions Patient?s care impacted by: Diabetes and Other COPD Discharge Plan Discharge Clinical Impression: Pneumonia Patient Disposition: Home, Self-Care Instructions: Pneumonia (ED) Additional Instructions: 1. Resume all home medications. 2. Complete the entire course of antibiotics as ordered. 3. Follow-up with your primary care provider on Saturday morning. Return to the ER for any worsening symptoms. Prescriptions: New amoxicillin 500 mg tablet 1,000 mg PO TID 7 Days Qty: 42 0RF No Action (DME) lancets [FreeStyle Lancets] 28 gauge misc See Rx Instructions .ROUTE .MEDSUPPLY Qty: 100 1RF Rx Instructions: Use to check blood sugar daily or if symptomatic hypo/hypergylcemia dicyclomine 10 mg capsule 20 mg PO QID PRN (Reason: for cramps) Qty: 720 1RF furosemide 20 mg tablet 20 mg PO BID Qty: 180 2RF glipizide 5 mg tablet 5 mg PO DAILY 30 Days Qty: 30 4RF (DME) FreeStyle Lite Strips Strip See Rx Instructions .ROUTE .MEDSUPPLY Qty: 100 1RF Rx Instructions: Use to check blood sugar daily or if symptomatic hypo/hypergylcemia (DME) 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 meter [FreeStyle Lite Meter] Kit See Rx Instructions .ROUTE .MEDSUPPLY Qty: 1 0RF Rx Instructions: Use to check blood sugar daily or if symptomatic for hypo/hyperglycemia albuterol sulfate [ProAir HFA] 90 mcg/actuation HFA aerosol inhaler 2 puff inhalation Q6H PRN (Reason: shortness of breath or wheezing) 30 Days Qty: 8.5 4RF Rx Instructions: proair ibuprofen 800 mg tablet 800 mg PO BID PRN (Reason: pain) 30 Days Qty: 90 1RF gabapentin 800 mg tablet 800 mg PO QID 30 Days Qty: 120 2RF ipratropium-albuterol 0.5 mg-3 mg(2.5 mg base)/3 mL solution for nebulization 3 ml inhalation Q6-8H PRN (Reason: for wheezing) Qty: 180 6RF aspirin 81 mg tablet,delayed release (DR/EC) 81 mg PO DAILY 90 Days Qty: 90 0RF dexlansoprazole 60 mg capsule,biphase delayed releas 60 mg PO DAILY Qty: 30 1RF lubiprostone [Amitiza] 8 mcg capsule 8 mcg PO BID Qty: 60 3RF Trulicity 0.75 mg/0.5 mL pen injector 0.75 mg subcut MO@1000 Qty: 2 1RF losartan 25 mg tablet 25 mg PO DAILY Qty: 30 3RF famotidine [Zantac-360 (famotidine)] 10 mg tablet 10 mg PO BEDTIME Qty: 90 0RF acetaminophen 650 mg tablet extended release 650 mg PO Q12H PRN (Reason: pain) 30 Days Qty: 60 0RF tizanidine 4 mg tablet 4 mg PO Q8H PRN (Reason: muscle spasm) 30 Days Qty: 90 0RF atorvastatin 80 mg tablet 80 mg PO BEDTIME prednisone 10 mg tablet 40 mg PO DAILY 7 Days Qty: 28 0RF Stiolto Respimat 2.5-2.5 mcg/actuation mist 2 puff inhalation DAILY 30 Days Qty: 4 6RF theophylline 400 mg tablet extended release 24 hr 400 mg PO BID 30 Days Qty: 60 6RF Referrals: Joe Hale, [facility] [Primary Care Provider] - Interventions: ED Discharge Assessment Last Done: 08/03/22 21:47 Discharge Date/Time: 08/03/22 21:47
[2022-08-03] MEDS: Amoxicillin 500 MG CAPSULE 1000 MG PO (21:32)
[2022-08-03] MEDS: Ibuprofen 400 MG TABLET PO (21:32)
[2022-08-03] MEDS: Acetaminophen 325 MG TABLET 975 MG PO (21:32)
[2022-08-03 21:34] LABS: Troponin-I High Sensitivity 6.6 ng/L (<3.5-17.0)
[2022-08-03] MEDS: Potassium Chloride ER 20 MEQ TAB.ER.PRT 60 MEQ PO (21:43)
--- NOTE | 2022-08-03 21:46 | PC.NURSE ---
pt medicated per provider order.
[2022-08-03 21:51] LABS: Magnesium 1.7 mg/dL (1.6-2.6)
== END 2022-08-03 21:47 | disposition home or self-care (01) ==
PROVIDERS: Physician Assistant Medical; Emergency Provider Student in an Organized Health Care Education/Training Program; PCP Nurse Practitioner Family
DX: J18.9 Pneumonia, unspecified organism (principal); R07.89 Other chest pain; F41.1 Generalized anxiety disorder; F43.0 Acute stress reaction; F17.210 Nicotine dependence, cigarettes, uncomplicated; Z71.6 Tobacco abuse counseling; Z20.822 Contact with and (suspected) exposure to COVID-19; Z20.828 Contact with and (suspected) exposure to other viral communicable diseases; Z79.899 Other long term (current) drug therapy
CPT/HCPCS: 0241U; 36415; 71046; 80053; 83735; 84484; 85025; 93005; 99283

== ENCOUNTER 2022-08-04 18:15 | Emergency (ER) | payer OTHER, SELFPAY ==
[2022-08-04 18:37] VITALS: BP 118/65; BP 136/72; PULSE 94; PULSE 95; RESP 18; TEMP 36.6; O2SAT 97; BMI 37.3
--- NOTE | 2022-08-04 18:46 | ECG_ITS ---
Test Reason : CP Blood Pressure : / mmHG Vent. Rate : 091 BPM Atrial Rate : 091 BPM P-R Int : 142 ms QRS Dur : 082 ms QT Int : 376 ms P-R-T Axes : 044 114 069 degrees QTc Int : 462 ms Sinus rhythm with marked sinus arrhythmia Right axis deviation Pulmonary disease pattern Abnormal ECG When compared with ECG of 03-AUG-2022 18:52, Nonspecific T wave abnormality no longer evident in Inferior leads QT has shortened Referred By: Ok Griffith Electronically Signed By:Dallin [place]
--- NOTE | 2022-08-04 18:48 | ED_ITS ---
HPI - General Adult General Chief complaint: General Medical Stated complaint: Anxiety, chest pain, from home per EMS Time Seen by Provider: 08/04/22 18:32 Source: patient Mode of arrival: ambulatory Limitations: no limitations History of Present Illness HPI narrative: patient 52 years with history of panic attacks/anxiety, COPD chronic smoker with history of cocaine abuse, last use was 2 days ago been to the ER 2 times in last 2 days for panic attacks/chest pain comes here as she is having this sharp chest pain which is going on since yesterday getting worse now increases on deep inspiration localized in mid chest has dry cough. Patient did have 2 sets of troponin done yesterday which was negative chest x-ray with possible infiltrate / atelectasis Related Data Home Medications Medication Instructions Recorded Confirmed atorvastatin 80 mg tablet 80 mg PO BEDTIME 04/27/22 04/27/22 Previous Rx's Medication Instructions Recorded lancets 28 gauge (FreeStyle #100 ea 01/20/21 Lancets) dicyclomine 10 mg capsule 20 mg PO QID PRN for cramps #720 11/07/21 caps furosemide 20 mg tablet 20 mg PO BID #180 tabs 02/06/22 glipizide 5 mg tablet 5 mg PO DAILY 30 days #30 tabs 02/22/22 blood sugar diagnostic (FreeStyle #100 ea 03/01/22 Lite Strips) 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 meter (FreeStyle #1 ea 03/01/22 Lite Meter kit) theophylline 400 mg 400 mg PO BID 30 days #60 tabs 04/06/22 tablet,extended release 24 hr albuterol sulfate 90 mcg/actuation 2 puff inhalation Q6H PRN 05/09/22 aerosol inhaler (ProAir HFA) shortness of breath or wheezing 30 days #8.5 grams ibuprofen 800 mg tablet 800 mg PO BID PRN pain 30 days #90 05/09/22 tabs prednisone 10 mg tablet 40 mg PO DAILY 7 days #28 tabs 05/11/22 tiotropium 2.5 mcg-olodaterol 2.5 2 puff inhalation DAILY 30 days #4 05/11/22 mcg/actuation mist for inhalation grams (Stiolto Respimat) ipratropium 0.5 mg-albuterol 3 mg 3 ml inhalation Q6-8H PRN for 05/15/22 (2.5 mg base)/3 mL nebulization wheezing #180 mL soln aspirin 81 mg tablet,delayed 81 mg PO DAILY 90 days #90 tabs 05/21/22 release dexlansoprazole 60 mg 60 mg PO DAILY #30 caps 05/30/22 capsule,biphase delayed release lubiprostone 8 mcg capsule 8 mcg PO BID #60 caps 05/30/22 (Amitiza) dulaglutide 0.75 mg/0.5 mL 0.75 mg (0.5 mL) subcut MO@1000 #2 06/21/22 subcutaneous pen injector mL (Trulicity) losartan 25 mg tablet 25 mg PO DAILY #30 tabs 06/21/22 famotidine 10 mg tablet 10 mg PO BEDTIME #90 tabs 07/17/22 (Zantac-360 (famotidine)) acetaminophen 650 mg 650 mg PO Q12H PRN pain 30 days 07/26/22 tablet,extended release #60 tabs tizanidine 4 mg tablet 4 mg PO Q8H PRN muscle spasm 30 07/27/22 days #90 tabs amoxicillin 500 mg tablet 1,000 mg PO TID 7 days #42 tabs 08/03/22 gabapentin 800 mg tablet 800 mg PO QID 30 days #120 tabs 08/04/22 ibuprofen 600 mg tablet 600 mg PO Q6H PRN fever or pain 08/04/22 #30 tabs Allergies Allergy/AdvReac Type Severity Reaction Status Date / Time doxycycline Allergy Severe Swelling Verified 08/04/22 18:41 varenicline [From CHANTIX] Allergy Severe ANAPHYLAXIS Verified 08/04/22 18:41 barium sulfate Allergy Intermediate angioedema Verified 08/04/22 18:41 azithromycin Allergy Mild Rash Verified 08/04/22 18:41 cetirizine Allergy Mild Rash Verified 08/04/22 18:41 famotidine Allergy Mild Rash Verified 08/04/22 18:41 linaclotide [Linzess] Allergy Mild Rash Verified 08/04/22 18:41 Review of Systems Review of Systems: Yes all other systems are reviewed and are negative PMFSH Past Medical History Medical History Acute and chronic respiratory failure with hypercapnia Acute and chronic respiratory failure, unspecified whether with hypoxia or hypercapnia Acute and chronic respiratory failure, unspecified whether with hypoxia or hypercapnia Asthma Bustos's esophagus Carpal tunnel syndrome of right wrist Chest discomfort Chronic idiopathic constipation Chronic renal failure, stage 2 (mild) Cocaine abuse COPD (chronic obstructive pulmonary disease) COPD exacerbation Crack cocaine use Depression Diabetes mellitus Encounter for preoperative pulmonary examination Gastroparesis GERD (gastroesophageal reflux disease) Hernia High triglycerides HTN (hypertension) Knee pain, bilateral Nausea & vomiting Obesity (BMI 30-39.9) Respiratory failure Smoker Surgical History History of carpal tunnel release History of esophagogastroduodenoscopy (EGD) History of open reduction and internal fixation (ORIF) procedure History of pubovaginal sling History of umbilical hernia repair Hx of section Hx of cholecystectomy Hx of tubal ligation Family History Family History Father Heart disease HENRY (obstructive sleep apnea) Family history of breast cancer Mother Asthma Emphysema, unspecified Bronchitis Smoker Alcoholism Bone marrow disease Maternal Grandmother Diabetes Social History Social History Household Members: Unknown / Unable to assess Housing: Unknown / Unable to assess Are you a primary medicare sales executive to a significant other at home: No Do you presently have visiting nurse or other home services: Yes ([employer]HEELAGE CLERK-daughter) Unable to assess alcohol history related to: Unknown Alcohol intake: current Alcohol intake frequency: a few times a month Alcohol type: beer Patient Tobacco Use Status: Current everyday Tobacco user Tobacco use type: Cigarette Cigarette Packs Per Day: 10 Cigarettes Per Day: 200.0 Years Smoked: 35 Smoked in Last 30 Days: Yes Second Hand Smoke Exposure: No Use of substances other than those prescribed or required for medical reasons: Yes Substance Use Type: Crack/Cocaine Last Used Substance: Days (ago) Advance Directives: No Advance Directives Information Provided: No Advance Directives Date on File: 04/15/20 Patient : No service: No Current occupational status: disabled 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 Oriented X3. No acute distress. anxious ENT: Pharynx normal. Oral Mucosa moist Neck: Normal inspection. Neck supple. CVS: Normal heart rate and rhythm. Pulses normal. no murmur/ rub /gallop Respiratory: No respiratory distress. Equal air entry bilateral, prolonged expiration with wheezing Abdomen: Soft and nontender. Bowel sounds are present, no mass palpable, no CVA tenderness Skin: Skin warm and dry. Normal skin color. Normal skin turgor. Extremities: No lower extremity edema. No calf tenderness Neuro: Oriented X 3. No motor deficit. Medications Administered Discontinued Medications Generic Name Dose Route Start Last Admin Trade Name Freq PRN Reason Stop Dose Admin Albuterol Sulfate 2.5 mg/ 0 mg 08/04/22 19:02 08/04/22 19:20 Albuterol/Ipratropium 3 ml INHALE 08/04/22 19:03 1 each ONCE ONE Administration Lorazepam 1 mg 08/04/22 18:46 08/04/22 19:32 Lorazepam 1 Mg Tablet PO 08/04/22 18:47 1 mg ONCE ONE Administration Medical Decision Making Medical Decision Making MDM Narrative: patient with pleuritic chest pain 3rd visit in the ER same will repeat troponin andEKG clinically patient has pleuritic chest Lab Data [facility] Lab Attestation statement: I reviewed the patient's lab results. Labs: Lab Results 08/04/22 Range/Units 19:12 Troponin I High Sens 7.5 (<3.5-17.0) ng/L Independent Interpretation I performed an independent interpretation of an: EKG Interpretation: normal sinus rhythm with sinus arrhythmia heart rate 91 beats per minute right axis deviation no acute ST T wave changes no acute ischemia Discharge Plan Discharge Clinical Impression: Chest pain, pleuritic, COPD (chronic obstructive pulmonary disease) Patient Disposition: Home, Self-Care Instructions: Chest Pain (ED), COPD (Chronic Obstructive Pulmonary Disease) (ED) Additional Instructions: your chest pain is not from the heart is from the lung lining or musculoskeletal pain ibuprofen for pain stop smoking continue your meds Prescriptions: New ibuprofen 600 mg tablet 600 mg PO Q6H PRN (Reason: fever or pain) Qty: 30 0RF No Action (DME) lancets [FreeStyle Lancets] 28 gauge misc See Rx Instructions .ROUTE .MEDSUPPLY Qty: 100 1RF Rx Instructions: Use to check blood sugar daily or if symptomatic hypo/hypergylcemia dicyclomine 10 mg capsule 20 mg PO QID PRN (Reason: for cramps) Qty: 720 1RF furosemide 20 mg tablet 20 mg PO BID Qty: 180 2RF glipizide 5 mg tablet 5 mg PO DAILY 30 Days Qty: 30 4RF (DME) FreeStyle Lite Strips Strip See Rx Instructions .ROUTE .MEDSUPPLY Qty: 100 1RF Rx Instructions: Use to check blood sugar daily or if symptomatic hypo/hypergylcemia (DME) 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 meter [FreeStyle Lite Meter] Kit See Rx Instructions .ROUTE .MEDSUPPLY Qty: 1 0RF Rx Instructions: Use to check blood sugar daily or if symptomatic for hypo/hyperglycemia albuterol sulfate [ProAir HFA] 90 mcg/actuation HFA aerosol inhaler 2 puff inhalation Q6H PRN (Reason: shortness of breath or wheezing) 30 Days Qty: 8.5 4RF Rx Instructions: proair ibuprofen 800 mg tablet 800 mg PO BID PRN (Reason: pain) 30 Days Qty: 90 1RF ipratropium-albuterol 0.5 mg-3 mg(2.5 mg base)/3 mL solution for nebulization 3 ml inhalation Q6-8H PRN (Reason: for wheezing) Qty: 180 6RF aspirin 81 mg tablet,delayed release (DR/EC) 81 mg PO DAILY 90 Days Qty: 90 0RF dexlansoprazole 60 mg capsule,biphase delayed releas 60 mg PO DAILY Qty: 30 1RF lubiprostone [Amitiza] 8 mcg capsule 8 mcg PO BID Qty: 60 3RF Trulicity 0.75 mg/0.5 mL pen injector 0.75 mg subcut MO@1000 Qty: 2 1RF losartan 25 mg tablet 25 mg PO DAILY Qty: 30 3RF famotidine [Zantac-360 (famotidine)] 10 mg tablet 10 mg PO BEDTIME Qty: 90 0RF acetaminophen 650 mg tablet extended release 650 mg PO Q12H PRN (Reason: pain) 30 Days Qty: 60 0RF tizanidine 4 mg tablet 4 mg PO Q8H PRN (Reason: muscle spasm) 30 Days Qty: 90 0RF gabapentin 800 mg tablet 800 mg PO QID 30 Days Qty: 120 2RF atorvastatin 80 mg tablet 80 mg PO BEDTIME amoxicillin 500 mg tablet 1,000 mg PO TID 7 Days Qty: 42 0RF prednisone 10 mg tablet 40 mg PO DAILY 7 Days Qty: 28 0RF Stiolto Respimat 2.5-2.5 mcg/actuation mist 2 puff inhalation DAILY 30 Days Qty: 4 6RF theophylline 400 mg tablet extended release 24 hr 400 mg PO BID 30 Days Qty: 60 6RF Interventions: ED Discharge Assessment Last Done: 08/04/22 20:12 Discharge Date/Time: 08/04/22 21:36
[2022-08-04 19:21] VITALS: PULSE 81; RESP 16; O2SAT 94
[2022-08-04] MEDS: LORazepam 1 MG TABLET PO (19:32)
[2022-08-04 19:43] LABS: Troponin-I High Sensitivity 7.5 ng/L (<3.5-17.0)
--- NOTE | 2022-08-04 21:36 | PC.NURSE ---
pt left via ems on stretcher back to SNF; discharge instructions provided to ems to hand off to SNF
--- NOTE | 2022-08-04 21:40 | PC.NURSE ---
discharge instructions given/explained, no respiratory distress, pt able to speak in full sentences, ambulates safely/independently, all questions answered
== END 2022-08-04 21:36 | disposition home or self-care (01) ==
PROVIDERS: Emergency Provider Internal Medicine; PCP Nurse Practitioner Family
DX: R07.89 Other chest pain (principal); J44.9 Chronic obstructive pulmonary disease, unspecified; F41.9 Anxiety disorder, unspecified; E11.9 Type 2 diabetes mellitus without complications; I10 Essential (primary) hypertension; F14.10 Cocaine abuse, uncomplicated; F17.210 Nicotine dependence, cigarettes, uncomplicated; E66.9 Obesity, unspecified; Z68.37 Body mass index [BMI] 37.0-37.9, adult; Z79.02 Long term (current) use of antithrombotics/antiplatelets; Z79.899 Other long term (current) drug therapy; Z79.82 Long term (current) use of aspirin; Z79.85 Long-term (current) use of injectable non-insulin antidiabetic drugs
CPT/HCPCS: 36415; 84484; 93005; 94640; 99284

== ENCOUNTER 2022-08-06 20:59 | Emergency (ER) | payer OTHER, SELFPAY ==
--- NOTE | ~2022-08-06 | XR_ITS ---
EXAMINATION: XR CHEST CLINICAL INFORMATION: Chest pain COMPARISON: Chest x-ray 08/03/2022 TECHNIQUE: Frontal view of the chest was obtained. 9:12 PM FINDINGS: No significant abnormality is noted involving the heart, lungs, mediastinum, bony thorax or soft tissues. XR/XR chest 1V IMPRESSION: Unremarkable examination.
--- NOTE | 2022-08-06 21:10 | ECG_ITS ---
Test Reason : chest pain Blood Pressure : / mmHG Vent. Rate : 099 BPM Atrial Rate : 099 BPM P-R Int : 124 ms QRS Dur : 086 ms QT Int : 348 ms P-R-T Axes : 000 -72 -11 degrees QTc Int : 446 ms Sinus rhythm with marked sinus arrhythmia Left axis deviation Pulmonary disease pattern Abnormal ECG When compared with ECG of 04-AUG-2022 18:57, Questionable change in QRS axis Non-specific change in ST segment in Inferior leads T wave inversion now evident in Inferior leads Referred By: Lyric Vargas Electronically Signed By:PAUL VARGAS MD
--- NOTE | 2022-08-06 21:12 | ED_ITS ---
HPI - SOB/Dyspnea General Chief Complaint: Chest Pain Stated Complaint: Jittery feeling after 4 neb treatments Time Seen by Provider: 08/06/22 21:01 History of Present Illness HPI Narrative: Patient is a 52-year-old female with a long history of COPD. Long history of smoking. Patient was in the emergency department 2 days ago for shortness of breath/anxiety/substance abuse. Has a history of using cocaine. Presented today feeling very jittery after some nebulized treatment having still wheezing. Still smoking. Patient positive coughing congestion upper respiratory symptoms. He is vaccinated for COVID. Related Data Home Medications Medication Instructions Recorded Confirmed atorvastatin 80 mg tablet 80 mg PO BEDTIME 04/27/22 04/27/22 Previous Rx's Medication Instructions Recorded lancets 28 gauge (FreeStyle #100 ea 01/20/21 Lancets) dicyclomine 10 mg capsule 20 mg PO QID PRN for cramps #720 11/07/21 caps furosemide 20 mg tablet 20 mg PO BID #180 tabs 02/06/22 glipizide 5 mg tablet 5 mg PO DAILY 30 days #30 tabs 02/22/22 blood sugar diagnostic (FreeStyle #100 ea 03/01/22 Lite Strips) 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 meter (FreeStyle #1 ea 03/01/22 Lite Meter kit) theophylline 400 mg 400 mg PO BID 30 days #60 tabs 04/06/22 tablet,extended release 24 hr albuterol sulfate 90 mcg/actuation 2 puff inhalation Q6H PRN 05/09/22 aerosol inhaler (ProAir HFA) shortness of breath or wheezing 30 days #8.5 grams ibuprofen 800 mg tablet 800 mg PO BID PRN pain 30 days #90 05/09/22 tabs prednisone 10 mg tablet 40 mg PO DAILY 7 days #28 tabs 05/11/22 tiotropium 2.5 mcg-olodaterol 2.5 2 puff inhalation DAILY 30 days #4 05/11/22 mcg/actuation mist for inhalation grams (Stiolto Respimat) ipratropium 0.5 mg-albuterol 3 mg 3 ml inhalation Q6-8H PRN for 05/15/22 (2.5 mg base)/3 mL nebulization wheezing #180 mL soln aspirin 81 mg tablet,delayed 81 mg PO DAILY 90 days #90 tabs 05/21/22 release dexlansoprazole 60 mg 60 mg PO DAILY #30 caps 05/30/22 capsule,biphase delayed release lubiprostone 8 mcg capsule 8 mcg PO BID #60 caps 05/30/22 (Amitiza) dulaglutide 0.75 mg/0.5 mL 0.75 mg (0.5 mL) subcut MO@1000 #2 06/21/22 subcutaneous pen injector mL (Trulicity) losartan 25 mg tablet 25 mg PO DAILY #30 tabs 06/21/22 famotidine 10 mg tablet 10 mg PO BEDTIME #90 tabs 07/17/22 (Zantac-360 (famotidine)) acetaminophen 650 mg 650 mg PO Q12H PRN pain 30 days 07/26/22 tablet,extended release #60 tabs tizanidine 4 mg tablet 4 mg PO Q8H PRN muscle spasm 30 07/27/22 days #90 tabs amoxicillin 500 mg tablet 1,000 mg PO TID 7 days #42 tabs 08/03/22 gabapentin 800 mg tablet 800 mg PO QID 30 days #120 tabs 08/04/22 ibuprofen 600 mg tablet 600 mg PO Q6H PRN fever or pain 08/04/22 #30 tabs prednisone 20 mg tablet 40 mg PO DAILY #10 tabs 08/06/22 Allergies Allergy/AdvReac Type Severity Reaction Status Date / Time doxycycline Allergy Severe Swelling Verified 08/04/22 18:41 varenicline [From CHANTIX] Allergy Severe ANAPHYLAXIS Verified 08/04/22 18:41 barium sulfate Allergy Intermediate angioedema Verified 08/04/22 18:41 azithromycin Allergy Mild Rash Verified 08/04/22 18:41 cetirizine Allergy Mild Rash Verified 08/04/22 18:41 famotidine Allergy Mild Rash Verified 08/04/22 18:41 linaclotide [Linzess] Allergy Mild Rash Verified 08/04/22 18:41 Review of Systems Review of Systems: Positive coughing congestion upper respiratory symptoms Positive wheezing Positive jittery Yes all other systems are reviewed and are negative [facility] Past Medical History Attestation statement: The following information was validated with the patient. Medical History Acute and chronic respiratory failure with hypercapnia Acute and chronic respiratory failure, unspecified whether with hypoxia or hypercapnia Acute and chronic respiratory failure, unspecified whether with hypoxia or hypercapnia Asthma Bustos's esophagus Carpal tunnel syndrome of right wrist Chest discomfort Chronic idiopathic constipation Chronic renal failure, stage 2 (mild) Cocaine abuse COPD (chronic obstructive pulmonary disease) COPD exacerbation Crack cocaine use Depression Diabetes mellitus Encounter for preoperative pulmonary examination Gastroparesis GERD (gastroesophageal reflux disease) Hernia High triglycerides HTN (hypertension) Knee pain, bilateral Nausea & vomiting Obesity (BMI 30-39.9) Respiratory failure Smoker Surgical History History of carpal tunnel release History of esophagogastroduodenoscopy (EGD) History of open reduction and internal fixation (ORIF) procedure History of pubovaginal sling History of umbilical hernia repair Hx of section Hx of cholecystectomy Hx of tubal ligation Family History Family History Father Heart disease HENRY (obstructive sleep apnea) Family history of breast cancer Mother Asthma Emphysema, unspecified Bronchitis Smoker Alcoholism Bone marrow disease Maternal Grandmother Diabetes Social History Social History Household Members: Unknown / Unable to assess Housing: Unknown / Unable to assess Are you a primary care management associate to a significant other at home: No Do you presently have visiting nurse or other home services: Yes ([employer]-daughter) Unable to assess alcohol history related to: Unknown Alcohol intake: current Alcohol intake frequency: a few times a month Alcohol type: beer Patient Tobacco Use Status: Current everyday Tobacco user Tobacco use type: Cigarette Cigarette Packs Per Day: 10 Cigarettes Per Day: 200.0 Years Smoked: 35 Second Hand Smoke Exposure: No Substance Use Type: Crack/Cocaine Advance Directives: No Advance Directives Information Provided: Yes Advance Directives Date on File: 04/15/20 service: No Current occupational status: disabled 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 Oriented X3. Appears anxious Eyes: Pupils equal, round and reactive to light. ENT: Pharynx normal. Neck: Normal inspection. Neck supple. No lymph nodes noted. No crepitus CVS: Normal heart rate and rhythm. Pulses normal. Normal S1 and S2 Respiratory: Positive expiratory wheezing bilaterally. Abdomen: Soft and nontender. No rigidity. No distention. good BS x4 Skin: Skin warm and dry. Normal skin color. Normal skin turgor. Extremities: No lower extremity edema. Neurovascular intact to all extremities. No Lacerations. No Rash Neuro: Oriented X 3. No motor deficit. No sensory deficit. Moving all extermities. No slurred speech. Positive fine tremors noted diffusely Medications Administered Discontinued Medications Generic Name Dose Route Start Last Admin Trade Name Freq PRN Reason Stop Dose Admin Lorazepam 1 mg 08/06/22 21:10 08/06/22 21:56 Lorazepam 2 Mg/Ml Vial IVPUSH 08/06/22 21:11 1 mg ONCE ONE Administration Methylprednisolone Sodium Succinate 125 mg 08/06/22 21:11 08/06/22 21:55 Methylprednisolone Sod Succ 125 Mg/2 Ml Vial IVPUSH 08/06/22 21:12 125 mg ONCE ONE Administration Medical Decision Making Medical Decision Making [facility] Narrative: Patient presents today with having increasing shortness of breath along with having jitteriness. Has a long history of COPD/asthma. Also added a long history of polysubstance abuse. Patient's flu RSV COVID were all negative. Chest x-ray showed no focal infiltrate. Patient's troponin was negative. In the setting of no chest pain. EKG baseline. Unlikely to have ACS. BNP was normal no evidence for congestive heart failure. Given Ativan symptom improved. History of anxiety. Patient is in stable condition. Sleeping at the current time teariness is gone. Patient's white count elevated more likely from demargination. Differential Diagnosis Asthma, COPD, pneumonia, infection, anxiety, panic attack, ACS Admission/Observation Consideration of admission/observation: Escalation of care including admission/observation considered No need to admit patient as patient well-appearing symptoms resolved at this time. Lab Data [facility] Lab Attestation statement: I reviewed the patient's lab results. 08/06/22 21:43 08/06/22 21:42 Labs: Lab Results 08/06/22 08/06/22 08/06/22 Range/Units 21:42 21:42 21:42 WBC (4.8-10.8) X10*3/uL RBC (4.20-5.50) X10*6/uL Hgb (12.0-16.0) g/dl Hct (37.0-47.0) % MCV (80.0-98.0) fL MCH (27.0-33.0) pg MCHC (31.0-35.0) g/dl RDW (11.0-16.0) % Plt Count (160-400) X10*3/uL MPV (9.4-12.3) fL Immature Gran % (Auto) (0.0-0.4) % Neut % (Auto) (45-73) % Lymph % (Auto) (20-40) % [place] % (Auto) (2-11) % Eos % (Auto) (0-4) % Baso % (Auto) (0-2) % Lymph # (Auto) (1.2-4.9) X10*3/uL [place] # (Auto) (0.1-1.2) X10*3/uL Eos # (Auto) (0.0-0.4) X10*3/uL Baso # (Auto) (0.0-0.2) X10*3/uL Abs Immat Gran (auto) (0.00-0.03) X10*3/uL Absolute Neuts (auto) (2.0-8.3) x10*3/uL Absolute Nucleated RBC (0.0-0.012) X10*3/uL Nucleated RBC % (auto) (0.0-0.2) /100WBC Sodium 138 (135-145) mmol/L Potassium 4.3 D (3.3-5.1) mmol/L Chloride 104 (96-108) mmol/L Carbon Dioxide 22 (22-29) mmol/L Anion Gap 16 (12-20) BUN 12 (9-16) mg/dL Creatinine 0.86 (0.5-1.4) mg/dL Estim Creat Clear Calc 71.1 Estimated GFR > 60 Random Glucose 119 H (60-115) mg/dL Calcium 9.3 D (8.4-10.2) mg/dL Total Bilirubin 0.2 (0.0-1.0) mg/dL Direct Bilirubin < 0.2 (0.0-0.5) mg/dL AST 9 (5-31) U/L ALT 8 (0-31) U/L Alkaline Phosphatase 92 (39-117) U/L Troponin I High Sens 6.2 (<3.5-17.0) ng/L B-Natriuretic Peptide 30 (<100) pg/mL Total Protein 6.5 (6.5-8.0) g/dL Albumin 4.0 (3.5-5.0) g/dL Influenza Type A (PCR) (Negative) Influenza Type B (PCR) (Negative) RSV RNA Qual (PCR) (Negative) SARS-CoV-2 RNA (RT-PCR) (Negative) 08/06/22 08/06/22 Range/Units 21:43 21:45 WBC 15.5 H (4.8-10.8) X10*3/uL RBC 5.66 H (4.20-5.50) X10*6/uL Hgb 13.3 (12.0-16.0) g/dl Hct 44.0 (37.0-47.0) % MCV 77.7 L (80.0-98.0) fL MCH 23.5 L (27.0-33.0) pg MCHC 30.2 L (31.0-35.0) g/dl RDW 18.5 H (11.0-16.0) % Plt Count 476 H (160-400) X10*3/uL MPV 9.0 L (9.4-12.3) fL Immature Gran % (Auto) 0.3 (0.0-0.4) % Neut % (Auto) 62.2 (45-73) % Lymph % (Auto) 29.9 (20-40) % Sauk % (Auto) 6.1 (2-11) % Eos % (Auto) 1.1 (0-4) % Baso % (Auto) 0.4 (0-2) % Lymph # (Auto) 4.6 (1.2-4.9) X10*3/uL [place] # (Auto) 0.9 (0.1-1.2) X10*3/uL Eos # (Auto) 0.2 (0.0-0.4) X10*3/uL Baso # (Auto) 0.1 (0.0-0.2) X10*3/uL Abs Immat Gran (auto) 0.04 H (0.00-0.03) X10*3/uL Absolute Neuts (auto) 9.7 H (2.0-8.3) x10*3/uL Absolute Nucleated RBC 0.000 (0.0-0.012) X10*3/uL Nucleated RBC % (auto) 0.0 (0.0-0.2) /100WBC Sodium (135-145) mmol/L Potassium (3.3-5.1) mmol/L Chloride (96-108) mmol/L Carbon Dioxide (22-29) mmol/L Anion Gap (12-20) BUN (9-16) mg/dL Creatinine (0.5-1.4) mg/dL Estim Creat Clear Calc Estimated GFR Random Glucose (60-115) mg/dL Calcium (8.4-10.2) mg/dL Total Bilirubin (0.0-1.0) mg/dL Direct Bilirubin (0.0-0.5) mg/dL AST (5-31) U/L ALT (0-31) U/L Alkaline Phosphatase (39-117) U/L Troponin I High Sens (<3.5-17.0) ng/L B-Natriuretic Peptide (<100) pg/mL Total Protein (6.5-8.0) g/dL Albumin (3.5-5.0) g/dL Influenza Type A (PCR) NEGATIVE (Negative) Influenza Type B (PCR) NEGATIVE (Negative) RSV RNA Qual (PCR) NEGATIVE (Negative) SARS-CoV-2 RNA (RT-PCR) NEGATIVE (Negative) Independent Interpretation I performed an independent interpretation of an: EKG Interpretation: Sinus pattern heart rate is 106 patient's DE QRS QT within normal limits there is lot of T-wave flattening noted diffusely. There is no acute changes compared to previous. External Record Review External record reviewed: Inpatient record Prescription Management prednisone Chronic Conditions Patient?s care impacted by: Hypertension Discharge Plan Discharge Clinical Impression: COPD (chronic obstructive pulmonary disease) Patient Disposition: Home, Self-Care Prescriptions: New prednisone 20 mg tablet 40 mg PO DAILY Qty: 10 0RF No Action (DME) lancets [FreeStyle Lancets] 28 gauge misc See Rx Instructions .ROUTE .MEDSUPPLY Qty: 100 1RF Rx Instructions: Use to check blood sugar daily or if symptomatic hypo/hypergylcemia dicyclomine 10 mg capsule 20 mg PO QID PRN (Reason: for cramps) Qty: 720 1RF furosemide 20 mg tablet 20 mg PO BID Qty: 180 2RF glipizide 5 mg tablet 5 mg PO DAILY 30 Days Qty: 30 4RF (DME) FreeStyle Lite Strips Strip See Rx Instructions .ROUTE .MEDSUPPLY Qty: 100 1RF Rx Instructions: Use to check blood sugar daily or if symptomatic hypo/hypergylcemia (DME) 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 meter [FreeStyle Lite Meter] Kit See Rx Instructions .ROUTE .MEDSUPPLY Qty: 1 0RF Rx Instructions: Use to check blood sugar daily or if symptomatic for hypo/hyperglycemia albuterol sulfate [ProAir HFA] 90 mcg/actuation HFA aerosol inhaler 2 puff inhalation Q6H PRN (Reason: shortness of breath or wheezing) 30 Days Qty: 8.5 4RF Rx Instructions: proair ibuprofen 800 mg tablet 800 mg PO BID PRN (Reason: pain) 30 Days Qty: 90 1RF ipratropium-albuterol 0.5 mg-3 mg(2.5 mg base)/3 mL solution for nebulization 3 ml inhalation Q6-8H PRN (Reason: for wheezing) Qty: 180 6RF aspirin 81 mg tablet,delayed release (DR/EC) 81 mg PO DAILY 90 Days Qty: 90 0RF dexlansoprazole 60 mg capsule,biphase delayed releas 60 mg PO DAILY Qty: 30 1RF lubiprostone [Amitiza] 8 mcg capsule 8 mcg PO BID Qty: 60 3RF Trulicity 0.75 mg/0.5 mL pen injector 0.75 mg subcut MO@1000 Qty: 2 1RF losartan 25 mg tablet 25 mg PO DAILY Qty: 30 3RF famotidine [Zantac-360 (famotidine)] 10 mg tablet 10 mg PO BEDTIME Qty: 90 0RF acetaminophen 650 mg tablet extended release 650 mg PO Q12H PRN (Reason: pain) 30 Days Qty: 60 0RF tizanidine 4 mg tablet 4 mg PO Q8H PRN (Reason: muscle spasm) 30 Days Qty: 90 0RF gabapentin 800 mg tablet 800 mg PO QID 30 Days Qty: 120 2RF atorvastatin 80 mg tablet 80 mg PO BEDTIME amoxicillin 500 mg tablet 1,000 mg PO TID 7 Days Qty: 42 0RF ibuprofen 600 mg tablet 600 mg PO Q6H PRN (Reason: fever or pain) Qty: 30 0RF prednisone 10 mg tablet 40 mg PO DAILY 7 Days Qty: 28 0RF Stiolto Respimat 2.5-2.5 mcg/actuation mist 2 puff inhalation DAILY 30 Days Qty: 4 6RF theophylline 400 mg tablet extended release 24 hr 400 mg PO BID 30 Days Qty: 60 6RF
[2022-08-06 21:20] VITALS: BP 103/49; BP 138/84; PULSE 105; RESP 20; TEMP 36.7; O2SAT 96; O2SAT 97; BMI 38.1
[2022-08-06 21:51] LABS: MANUAL DIFF FLAG NO
[2022-08-06 21:53] LABS: Basophils Absolute Auto 0.1 X10*3/uL (0.0-0.2); Basophils Percent Auto 0.4 % (0-2); Eosinophils Absolute Auto 0.2 X10*3/uL (0.0-0.4); Eosinophils Percent Auto 1.1 % (0-4); Hemoglobin 13.3 g/dl (12.0-16.0); Imm Gran Abs Auto 0.04 X10*3/uL (0.00-0.03); Imm Gran Pct Auto 0.3 % (0.0-0.4); Lymphocytes Absolute Auto 4.6 X10*3/uL (1.2-4.9); Lymphocytes Percent Auto 29.9 % (20-40); Mean Corpuscular HGB Conc 30.2 g/dl (31.0-35.0); Mean Corpuscular Hemoglobin 23.5 pg (27.0-33.0); Mean Corpuscular Volume 77.7 fL (80.0-98.0); Monocytes Absolute Auto 0.9 X10*3/uL (0.1-1.2); Monocytes Percent Auto 6.1 % (2-11); Neutrophils Absolute Auto 9.7 x10*3/uL (2.0-8.3); Neutrophils Percent Auto 62.2 % (45-73); Platelet Count 476 X10*3/uL (160-400); Red Blood Count 5.66 X10*6/uL (4.20-5.50); Red Cell Distribution Width 18.5 % (11.0-16.0); White Blood Count 15.5 X10*3/uL (4.8-10.8)
[2022-08-06] MEDS: methylPREDNISolone Sod Succ 125 MG/2 ML VIAL IVPUSH (21:55)
[2022-08-06] MEDS: LORazepam 2 MG/ML VIAL 1 MG IVPUSH (21:56)
[2022-08-06 22:15] LABS: Alanine Aminotransferase 8 U/L (0-31); Alkaline Phosphatase 92 U/L (39-117); Anion Gap 16 (12-20); Aspartate Amino Transferase 9 U/L (5-31); B Type Natriuretic Peptide 30 pg/mL (<100); Bilirubin Direct < 0.2 mg/dL (0.0-0.5); Bilirubin Total 0.2 mg/dL (0.0-1.0); Blood Urea Nitrogen 12 mg/dL (9-16); Calcium 9.3 mg/dL (8.4-10.2); Carbon Dioxide 22 mmol/L (22-29); Chloride 104 mmol/L (96-108); Creatinine Clr Calc Pharmacy 71.1; Estimated Glomerular Filt Rate > 60; Glucose Random 119 mg/dL (60-115); Potassium 4.3 mmol/L (3.3-5.1); Sodium 138 mmol/L (135-145); Total Protein 6.5 g/dL (6.5-8.0)
[2022-08-06 22:20] LABS: Troponin-I High Sensitivity 6.2 ng/L (<3.5-17.0)
[2022-08-06 22:30] LABS: Influenza A PCR NEGATIVE (Negative); Influenza B PCR NEGATIVE (Negative); Resp Syncy Virus RNA Qual PCR NEGATIVE (Negative); SARS COV2 PCR INHOUSE NEGATIVE (Negative)
[2022-08-06 22:49] VITALS: BP 115/67; PULSE 106; RESP 25; O2SAT 93
--- NOTE | 2022-08-06 23:37 | PC.NURSE ---
Pt. jittery upon and arrival and reporting chest pain and high anxiety. IV placed and pt. medicated with ativan and solumedrol. Pt. now sleeping, respirations even and unlabored, no distress noted.
== END 2022-08-07 00:36 | disposition home or self-care (01) ==
PROVIDERS: Emergency Provider Emergency Medicine Emergency Medical Services; PCP Nurse Practitioner Family
DX: J44.9 Chronic obstructive pulmonary disease, unspecified (principal); R06.02 Shortness of breath; E11.9 Type 2 diabetes mellitus without complications; I10 Essential (primary) hypertension; F17.210 Nicotine dependence, cigarettes, uncomplicated; F14.10 Cocaine abuse, uncomplicated; Z79.02 Long term (current) use of antithrombotics/antiplatelets; Z79.82 Long term (current) use of aspirin; Z79.85 Long-term (current) use of injectable non-insulin antidiabetic drugs; Z20.822 Contact with and (suspected) exposure to COVID-19; Z20.828 Contact with and (suspected) exposure to other viral communicable diseases
CPT/HCPCS: 0241U; 36415; 71045; 80048; 80076; 83880; 84484; 85025; 93005; 96374; 96375; 99284; 99285; J2060; J2930

== ENCOUNTER → 2022-09-27 10:37 | Outpatient (BNVA) | payer OTHER, SELFPAY | PROVIDERS: PCP Nurse Practitioner Family; Visit Provider Internal Medicine Pulmonary Disease | DX: J44.9 Chronic obstructive pulmonary disease, unspecified (principal); G47.33 Obstructive sleep apnea (adult) (pediatric); F17.210 Nicotine dependence, cigarettes, uncomplicated | CPT/HCPCS: 99212 ==

== ENCOUNTER 2022-10-01 03:38 | Emergency (ER) | payer OTHER, SELFPAY ==
[2022-10-01] VITALS (8 sets, daily range): BP systolic 117–149; BP diastolic 64–98; PULSE 70–108; RESP 13–24; O2SAT 86–98; BMI 35.3
--- NOTE | ~2022-10-01 | XR_ITS ---
EXAMINATION: XR CHEST CLINICAL INFORMATION: Shortness of breath COMPARISON: 08/06/2022 TECHNIQUE: Frontal view of the chest was obtained. FINDINGS: Bibasilar subsegmental atelectasis. No parenchymal consolidation. No pleural effusion. No pneumothorax. Cardiomediastinal silhouette and pulmonary vascularity are within normal limits. No acute osseous abnormalities. XR/XR chest 1V IMPRESSION: No acute findings
[2022-10-01] MEDS: Albuterol Sulfate (0.083%) 2.5 MG/3 ML VIAL.NEB 10 MG INHALE (03:53)
[2022-10-01] MEDS: Magnesium Sulfate/H2O 2 GM/50 ML PIGGYBACK IV (03:54)
[2022-10-01] MEDS: dexAMETHasone sod phosphate 10 MG/ML VIAL IVPUSH (03:55)
[2022-10-01] MEDS: LORazepam 2 MG/ML VIAL 1 MG IVPUSH (03:55)
[2022-10-01] MEDS: iohexoL 350 MG/ML 100 ML INFUS..BTL 65 ML IV (03:55)
[2022-10-01 04:04] LABS: Basophils Absolute Auto 0.1 X10*3/uL (0.0-0.2); Basophils Percent Auto 0.5 % (0-2); Eosinophils Absolute Auto 0.2 X10*3/uL (0.0-0.4); Eosinophils Percent Auto 1.9 % (0-4); Hematocrit 41.8 % (37.0-47.0); Imm Gran Abs Auto 0.02 X10*3/uL (0.00-0.03); Imm Gran Pct Auto 0.2 % (0.0-0.4); Lymphocytes Absolute Auto 5.7 X10*3/uL (1.2-4.9); Lymphocytes Percent Auto 47.3 % (20-40); Mean Corpuscular HGB Conc 31.1 g/dl (31.0-35.0); Mean Corpuscular Volume 80.4 fL (80.0-98.0); Monocytes Absolute Auto 0.8 X10*3/uL (0.1-1.2); Monocytes Percent Auto 6.9 % (2-11); Neutrophils Absolute Auto 5.2 x10*3/uL (2.0-8.3); Neutrophils Percent Auto 43.2 % (45-73); Platelet Count 438 X10*3/uL (160-400); Red Cell Distribution Width 17.4 % (11.0-16.0); SCAN SMEAR FLAG 1; White Blood Count 12.1 X10*3/uL (4.8-10.8)
[2022-10-01 04:06] LABS: MANUAL DIFF FLAG SCAN
--- NOTE | 2022-10-01 04:10 | ECG_ITS ---
Test Reason : dyspnea Blood Pressure : / mmHG Vent. Rate : 101 BPM Atrial Rate : 101 BPM P-R Int : 134 ms QRS Dur : 090 ms QT Int : 344 ms P-R-T Axes : 049 153 052 degrees QTc Int : 446 ms Sinus tachycardia Low voltage QRS Left posterior fascicular block Inferior infarct , age undetermined Abnormal ECG When compared with ECG of 06-AUG-2022 21:40, Left posterior fascicular block is now Present T wave inversion no longer evident in Inferior leads Referred By: Ok Griffith Electronically Signed By:Dallin [place]
--- NOTE | 2022-10-01 04:16 | PC.NURSE ---
Pt aox3 reporting sob, chest pain, and anxiety. Reports I can't breath. It won't go in. Currently on breathing treatment with respiratory at bedside. Breathing is even and labored. Increased anxiety noted. O2 sat 97% on nc. Sinus tach on monitor with HR 110. 22G IV line started on L AC. Labs drawn and sent. Medicated as ordered. MD at bedside.
[2022-10-01 04:21] LABS: Alanine Aminotransferase 7 U/L (0-31); Albumin Level 3.9 g/dL (3.5-5.0); Alkaline Phosphatase 88 U/L (39-117); Anion Gap 16 (12-20); Aspartate Amino Transferase 9 U/L (5-31); Bilirubin Total 0.2 mg/dL (0.0-1.0); Blood Urea Nitrogen 10 mg/dL (9-16); Calcium 9.2 mg/dL (8.4-10.2); Carbon Dioxide 26 mmol/L (22-29); Chloride 103 mmol/L (96-108); Creatinine Clr Calc Pharmacy 60.4; Estimated Glomerular Filt Rate 60; Glucose Random 132 mg/dL (60-115); Potassium 3.8 mmol/L (3.3-5.1); Sodium 141 mmol/L (135-145); Total Protein 6.3 g/dL (6.5-8.0)
[2022-10-01 04:25] LABS: SLIDE REVIEW VERIFIED
--- NOTE | 2022-10-01 04:38 | ED_ITS ---
HPI - SOB/Dyspnea General Chief Complaint: Dyspnea Stated Complaint: SOB Time Seen by Provider: 10/01/22 03:47 Source: patient Mode of arrival: EMS Limitations: no limitations History of Present Illness HPI Narrative: Patient history of COPD, cocaine abuse chronic smoker with history of panic attack and anxiety been here multiple times for anxiety/COPD exacerbation comes here for increased shortness of breath with for last few hours saturating above 90% used cocaine about 4 days ago, has not picked up a new inhaler no fever or chills has dry cough which has no change in quality patient not on any oxygen at home Related Data Home Medications Medication Instructions Recorded Confirmed atorvastatin 80 mg tablet 80 mg PO BEDTIME 04/27/22 04/27/22 Previous Rx's Medication Instructions Recorded lancets 28 gauge ([email or web address].comStyle #100 ea 01/20/21 Lancets) dicyclomine 10 mg capsule 20 mg PO QID PRN for cramps #720 11/07/21 caps furosemide 20 mg tablet 20 mg PO BID #180 tabs 02/06/22 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 meter ([email or web address] #1 ea 03/01/22 Lite Meter kit) theophylline 400 mg 400 mg PO BID 30 days #60 tabs 04/06/22 tablet,extended release 24 hr albuterol sulfate 90 mcg/actuation 2 puff inhalation Q6H PRN 05/09/22 aerosol inhaler (ProAir HFA) shortness of breath or wheezing 30 days #8.5 grams tiotropium 2.5 mcg-olodaterol 2.5 2 puff inhalation DAILY 30 days #4 05/11/22 mcg/actuation mist for inhalation grams (Stiolto Respimat) lubiprostone 8 mcg capsule 8 mcg PO BID #60 caps 05/30/22 (Amitiza) losartan 25 mg tablet 25 mg PO DAILY #30 tabs 06/21/22 famotidine 10 mg tablet 10 mg PO BEDTIME #90 tabs 07/17/22 (Zantac-360 (famotidine)) gabapentin 800 mg tablet 800 mg PO QID 30 days #120 tabs 08/04/22 ibuprofen 600 mg tablet 600 mg PO Q6H PRN fever or pain 08/04/22 #30 tabs aspirin 81 mg tablet,delayed 81 mg PO DAILY 90 days #90 tabs 08/20/22 release dulaglutide 0.75 mg/0.5 mL 0.75 mg (0.5 mL) subcut MO@1000 #2 08/20/22 subcutaneous pen injector mL (Trulicity) acetaminophen 650 mg 650 mg PO Q12H PRN pain 30 days 08/30/22 tablet,extended release #60 tabs glipizide 5 mg tablet 5 mg PO DAILY 30 days #30 tabs 08/30/22 dexlansoprazole 60 mg 60 mg PO DAILY #30 caps 09/10/22 capsule,biphase delayed release tizanidine 4 mg tablet 4 mg PO Q8H PRN muscle spasm 30 09/12/22 days #90 tabs blood sugar diagnostic (FreeStyle #100 ea 09/16/22 Lite Strips) ipratropium bromide 0.02 % 2.5 ml inhalation Q6H PRN 09/27/22 solution for inhalation shortness of breath or wheezing 30 days #225 mL prednisone 10 mg tablet 40 mg PO DAILY 7 days #28 tabs 09/27/22 Allergies Allergy/AdvReac Type Severity Reaction Status Date / Time doxycycline Allergy Severe Swelling Verified 09/27/22 10:42 varenicline [From CHANTIX] Allergy Severe ANAPHYLAXIS Verified 09/27/22 10:42 barium sulfate Allergy Intermediate angioedema Verified 09/27/22 10:42 azithromycin Allergy Mild Rash Verified 09/27/22 10:42 cetirizine Allergy Mild Rash Verified 09/27/22 10:42 famotidine Allergy Mild Rash Verified 09/27/22 10:42 linaclotide [Linzess] Allergy Mild Rash Verified 09/27/22 10:42 Review of Systems Review of Systems: Yes all other systems are reviewed and are negative PMFSH Past Medical History Medical History Acute and chronic respiratory failure with hypercapnia Acute and chronic respiratory failure, unspecified whether with hypoxia or hype rcapnia Acute and chronic respiratory failure, unspecified whether with hypoxia or hypercapnia Asthma Bustos's esophagus Carpal tunnel syndrome of right wrist Chest discomfort Chronic idiopathic constipation Chronic renal failure, stage 2 (mild) Cocaine abuse COPD (chronic obstructive pulmonary disease) COPD exacerbation Crack cocaine use Depression Diabetes mellitus Encounter for preoperative pulmonary examination Gastroparesis GERD (gastroesophageal reflux disease) Hernia High triglycerides HTN (hypertension) Knee pain, bilateral Nausea & vomiting Obesity (BMI 30-39.9) Respiratory failure Smoker Surgical History History of carpal tunnel release History of esophagogastroduodenoscopy (EGD) History of open reduction and internal fixation (ORIF) procedure History of pubovaginal sling History of umbilical hernia repair Hx of section Hx of cholecystectomy Hx of tubal ligation Family History Family History Father Heart disease HENRY (obstructive sleep apnea) Family history of breast cancer Mother Asthma Emphysema, unspecified Bronchitis Smoker Alcoholism Bone marrow disease Maternal Grandmother Diabetes Social History Social History Household Members: Unknown / Unable to assess Housing: Unknown / Unable to assess Are you a primary home child care provider to a significant other at home: No Do you presently have visiting nurse or other home services: Yes ([employer]-daughter) Unable to assess alcohol history related to: Unknown Alcohol intake: never Patient Tobacco Use Status: Current everyday Tobacco user Tobacco use type: Cigarette Cigarette Packs Per Day: 10 Cigarettes Per Day: 200.0 Years Smoked: 35 Smoked in Last 30 Days: Yes Second Hand Smoke Exposure: No Use of substances other than those prescribed or required for medical reasons: No Substance Use Type: Crack/Cocaine Advance Directives: No Advance Directives Date on File: 04/15/20 service: No Current occupational status: disabled 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 Oriented X3. Very anxious hyperventilating Eyes: No pallor or icterus ENT: Pharynx normal. Oral Mucosa moist Neck: Normal inspection. Neck supple. CVS: Normal heart rate and rhythm. Pulses normal. Respiratory: Moderate respiratory distress. Equal air entry bilateral, bilateral prolonged expiration bilateral wheezes Abdomen: Soft and nontender. Bowel sounds are present, no mass palpable, no CVA tenderness Skin: Skin warm and dry. Normal skin color. Normal skin turgor. Extremities: No lower extremity edema. No calf tenderness Neuro: Oriented X 3. No motor deficit. No sensory deficit Medications Administered Discontinued Medications Generic Name Dose Route Start Last Admin Trade Name Brian PRN Reason Stop Dose Admin Albuterol Sulfate 10 mg 10/01/22 03:49 10/01/22 03:53 Albuterol Sulfate (0.083%) 2.5 Mg/3 Ml Vial.Neb INHALE 10/01/22 03:50 10 mg ONCE ONE Administration Dexamethasone Sodium Phosphate 10 mg 10/01/22 03:49 10/01/22 03:55 Dexamethasone Sod Phosphate 10 Mg/Ml Vial IVPUSH 10/01/22 03:50 10 mg ONCE ONE Administration Magnesium Sulfate 2 gm in 50 mls @ 100 mls/hr 10/01/22 03:49 10/01/22 04:23 Magnesium Sulfate/H2o IV 10/01/22 04:18 Infused ONCE ONE Infusion Iohexol 65 ml 10/01/22 03:54 10/01/22 03:55 Iohexol 350 Mg/Ml 100 Ml Infus..Btl IV 10/01/22 03:55 65 ml ONCE ONE Administration Lorazepam 1 mg 10/01/22 03:49 10/01/22 03:55 Lorazepam 2 Mg/Ml Vial IVPUSH 10/01/22 03:50 1 mg ONCE ONE Administration Medical Decision Making Medical Decision Making [facility] Narrative: 630 am Patient with COPD on DuoNeb nebulizing treatment at home with HENRY has not received CPAP machine yet not on oxygen at home came for increased shortness of breath with anxiety while in the ER patient saturation dropped to 86% at room air improved to 95% on 3 L will admit acute on chronic hypoxia Consult Healthcare Provider Management of the patient was discussed with: Hospitalist For admission COPD/HENRY with acute on chronic hypoxia Lab Data [facility] Lab Attestation statement: I reviewed the patient's lab results. 10/01/22 03:59 10/01/22 03:59 Labs: Lab Results 10/01/22 10/01/22 Range/Units 03:59 03:59 WBC 12.1 H (4.8-10.8) X10*3/uL RBC 5.20 (4.20-5.50) X10*6/uL Hgb 13.0 (12.0-16.0) g/dl Hct 41.8 (37.0-47.0) % MCV 80.4 (80.0-98.0) fL MCH 25.0 L (27.0-33.0) pg MCHC 31.1 (31.0-35.0) g/dl RDW 17.4 H (11.0-16.0) % Plt Count 438 H (160-400) X10*3/uL MPV 9.0 L (9.4-12.3) fL Immature Gran % (Auto) 0.2 (0.0-0.4) % Neut % (Auto) 43.2 L (45-73) % Lymph % (Auto) 47.3 H (20-40) % Butler % (Auto) 6.9 (2-11) % Eos % (Auto) 1.9 (0-4) % Baso % (Auto) 0.5 (0-2) % Lymph # (Auto) 5.7 H (1.2-4.9) X10*3/uL Butler # (Auto) 0.8 (0.1-1.2) X10*3/uL Eos # (Auto) 0.2 (0.0-0.4) X10*3/uL Baso # (Auto) 0.1 (0.0-0.2) X10*3/uL Abs Immat Gran (auto) 0.02 (0.00-0.03) X10*3/uL Absolute Neuts (auto) 5.2 (2.0-8.3) x10*3/uL Absolute Nucleated RBC 0.000 (0.0-0.012) X10*3/uL Nucleated RBC % (auto) 0.0 (0.0-0.2) /100WBC Smear Tech's Comments VERIFIED Sodium 141 (135-145) mmol/L Potassium 3.8 (3.3-5.1) mmol/L Chloride 103 (96-108) mmol/L Carbon Dioxide 26 (22-29) mmol/L Anion Gap 16 (12-20) BUN 10 (9-16) mg/dL Creatinine 0.97 (0.5-1.4) mg/dL Estim Creat Clear Calc 60.4 Estimated GFR 60 Random Glucose 132 H (60-115) mg/dL Calcium 9.2 (8.4-10.2) mg/dL Total Bilirubin 0.2 (0.0-1.0) mg/dL AST 9 (5-31) U/L ALT 7 (0-31) U/L Alkaline Phosphatase 88 (39-117) U/L Total Protein 6.3 L (6.5-8.0) g/dL Albumin 3.9 (3.5-5.0) g/dL Independent Interpretation I performed an independent interpretation of an: EKG Interpretation: Sinus tachycardia heart rate 101 beats per minute low-voltage QRS complexes no acute ST-T changes no acute ischemia External Record Review External record reviewed: Inpatient record Discharge Plan Discharge Clinical Impression: Acute and chronic respiratory failure with hypoxia, COPD (chronic obstructive pulmonary disease) with emphysema Patient Disposition: Admitted As Inpatient
--- NOTE | 2022-10-01 06:05 | PC.NURSE ---
Pt is sleeping at the bedside in no apparent distress. Breaths are even regular and unlabored. O2 sat 95% on 3L nc. Sinus tach on monitor with HR 115. Will continue to monitor.
--- NOTE | 2022-10-01 06:29 | PC.NURSE ---
Pt sleeping at the bedside. Arousable to verbal stimuli. Awakens to answer questions and immediately falls back asleep. Pt reports breathing much better. Current o2 on 3L nc 94%. O2 sat decreased to 86% when pt taken off of oxygen. Pt reports not using oxygen at home. Pt placed back on 3L nc with improved o2 sat 93%. aware.
[2022-10-01 07:02] LABS: Venous Blood Gas Refer to POC result
[2022-10-01 07:02] LABS: VBG HCO3 28 mmol/L (22-26); VBG pCO2 58 mmHg; VBG pO2 57 mmHg
[2022-10-01 07:13] LABS: COVID-19 Test Negative (Negative); IDNOW Serial# 6674DD1D
--- NOTE | 2022-10-01 08:41 | PHA.MEDREC ---
Pharmacy Consult ? Medication Reconciliation Pharmacy has completed the medication reconciliation. Patient uncooperative/poor historain, as patient wakes up to respond then falls back asleep. Patient unfamilar with all medications then reports yes to everything. Tried to called daughter Jaja but she is unaware of active medications. Utilized claim history. Lian Barajas, PharmD
[2022-10-01 08:59] LABS: Venous Blood Gas Refer to POC result
[2022-10-01 09:05] LABS: VBG Base Excess -0.9 mmol/L; VBG HCO3 24 mmol/L (22-26); VBG pCO2 43 mmHg; VBG pH 7.36 (7.32-7.43); VBG pO2 98 mmHg
[2022-10-01 09:41] LABS: Glucose, Whole Blood 202 mg/dL (60-115)
--- NOTE | 2022-10-01 10:09 | PC.NURSE ---
Patient requesting she be discharged home instead of being admitted inpatient. States her daughter can come pick her up and bring her to pharmacy to get medications. Inpatient provider aware and now in at bedside.
--- NOTE | 2022-10-01 12:07 | PC.NURSE ---
Patient ambulating independently to bathroom. Still waiting for disposition.
== END 2022-10-01 12:54 | disposition left against medical advice (07) ==
PROVIDERS: Internal Medicine; Emergency Provider Emergency Medicine
DX: J96.01 Acute respiratory failure with hypoxia (principal); J44.9 Chronic obstructive pulmonary disease, unspecified; F17.210 Nicotine dependence, cigarettes, uncomplicated; Z20.822 Contact with and (suspected) exposure to COVID-19; Z20.828 Contact with and (suspected) exposure to other viral communicable diseases; Z79.899 Other long term (current) drug therapy; Z71.6 Tobacco abuse counseling
CPT/HCPCS: 36415; 71045; 80053; 82803; 82947; 85025; 87635; 93005; 94640; 96365; 96375; 99285; J1100; J2060; J3475; Q9967

== ENCOUNTER 2022-10-17 22:30 | Emergency (ER) | payer OTHER, SELFPAY ==
[2022-10-17 22:44] VITALS: BP 100/62; BP 140/80; PULSE 94; PULSE 97; RESP 20; TEMP 36.8; O2SAT 95; O2SAT 96; BMI 35.3
--- NOTE | 2022-10-17 22:58 | ED_ITS ---
HPI - Psych General Chief Complaint: Anxiety Stated Complaint: anxiety Time Seen by Provider: 10/17/22 22:47 Source: patient Mode of arrival: EMS Limitations: no limitations History of Present Illness HPI Narrative: Patient with history of COPD, sleep apnea not using CPAP, anxiety disorder comes here for increased anxiety as in the past patient used cocaine earlier no chest pain or palpitation no significant shortness of breath Related Data Home Medications Medication Instructions Recorded Confirmed ipratropium 0.5 mg-albuterol 3 mg 3 ml inhalation BID PRN Wheezing 10/01/22 10/01/22 (2.5 mg base)/3 mL nebulization soln Previous Rx's Medication Instructions Recorded lancets 28 gauge (FreeStyle #100 ea 01/20/21 Lancets) dicyclomine 10 mg capsule 20 mg PO QID PRN for cramps #720 11/07/21 caps furosemide 20 mg tablet 20 mg PO BID #180 tabs 02/06/22 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 meter (TheBank[employer]Style #1 ea 03/01/22 Lite Meter kit) theophylline 400 mg 400 mg PO BID 30 days #60 tabs 04/06/22 tablet,extended release 24 hr tiotropium 2.5 mcg-olodaterol 2.5 2 puff inhalation DAILY 30 days #4 05/11/22 mcg/actuation mist for inhalation grams (Stiolto Respimat) gabapentin 800 mg tablet 800 mg PO QID 30 days #120 tabs 08/04/22 glipizide 5 mg tablet 5 mg PO DAILY 30 days #30 tabs 08/30/22 tizanidine 4 mg tablet 4 mg PO Q8H PRN muscle spasm 30 09/12/22 days #90 tabs blood sugar diagnostic (FreeStyle #100 ea 09/16/22 Lite Strips) ipratropium bromide 0.02 % 2.5 ml inhalation Q6H PRN 09/27/22 solution for inhalation shortness of breath or wheezing 30 days #225 mL hydroxyzine HCl 25 mg tablet 25 mg PO TID PRN anxiety #5 tabs 10/01/22 ibuprofen 800 mg tablet 800 mg PO BID PRN pain #60 tabs 10/03/22 losartan 25 mg tablet 25 mg PO DAILY #30 tabs 10/03/22 lubiprostone 8 mcg capsule 8 mcg PO BID #60 caps 04/05/23 (Amitiza) prednisone 20 mg tablet See Rx Instructions PO DAILY 10 10/08/22 days #15 tabs sulfamethoxazole 800 1 tab PO BID 10 days #20 tabs 10/08/22 mg-trimethoprim 160 mg tablet (Bactrim DS) acetaminophen 650 mg 650 mg PO Q12H PRN pain 30 days 10/09/22 tablet,extended release #60 tabs dulaglutide 0.75 mg/0.5 mL 0.75 mg (0.5 mL) subcut MO@1000 #2 10/09/22 subcutaneous pen injector mL (Trulicity) famotidine 10 mg tablet 10 mg PO BEDTIME #90 tabs 10/12/22 (Zantac-360 (famotidine)) albuterol sulfate 90 mcg/actuation 2 puff inhalation Q6H PRN 10/16/22 aerosol inhaler (ProAir HFA) shortness of breath or wheezing 30 days #8.5 grams aspirin 81 mg tablet,delayed 81 mg PO DAILY 90 days #90 tabs 10/16/22 release lorazepam 1 mg tablet (Ativan) 1 mg PO DAILY PRN anxiety #10 tabs 10/18/22 Allergies Allergy/AdvReac Type Severity Reaction Status Date / Time doxycycline Allergy Severe Swelling Verified 09/27/22 10:42 varenicline [From CHANTIX] Allergy Severe ANAPHYLAXIS Verified 09/27/22 10:42 barium sulfate Allergy Intermediate angioedema Verified 09/27/22 10:42 azithromycin Allergy Mild Rash Verified 09/27/22 10:42 cetirizine Allergy Mild Rash Verified 09/27/22 10:42 famotidine Allergy Mild Rash Verified 09/27/22 10:42 linaclotide [Linzess] Allergy Mild Rash Verified 09/27/22 10:42 Review of Systems Review of Systems: Yes all other systems are reviewed and are negative PMFSH Past Medical History Medical History Acute and chronic respiratory failure with hypercapnia Acute and chronic respiratory failure, unspecified whether with hypoxia or hypercapnia Acute and chronic respiratory failure, unspecified whether with hypoxia or hypercapnia Asthma Bustos's esophagus Carpal tunnel syndrome of right wrist Chest discomfort Chronic idiopathic constipation Chronic renal failure, stage 2 (mild) Cocaine abuse COPD (chronic obstructive pulmonary disease) COPD exacerbation Crack cocaine use Depression Diabetes mellitus Encounter for preoperative pulmonary examination Gastroparesis GERD (gastroesophageal reflux disease) Hernia High triglycerides HTN (hypertension) Knee pain, bilateral Nausea & vomiting Obesity (BMI 30-39.9) Respiratory failure Smoker Surgical History History of carpal tunnel release History of esophagogastroduodenoscopy (EGD) History of open reduction and internal fixation (ORIF) procedure History of pubovaginal sling History of umbilical hernia repair Hx of section Hx of cholecystectomy Hx of tubal ligation Family History Family History Father Heart disease HENRY (obstructive sleep apnea) Family history of breast cancer Mother Asthma Emphysema, unspecified Bronchitis Smoker Alcoholism Bone marrow disease Maternal Grandmother Diabetes Social History Social History Household Members: Unknown / Unable to assess Housing: Unknown / Unable to assess Are you a primary child care attendant school to a significant other at home: No Do you presently have visiting nurse or other home services: Yes (CROSSING WATCHMAN-daughter) Unable to assess alcohol history related to: Unknown Alcohol intake: former Patient Tobacco Use Status: Current everyday Tobacco user Tobacco use type: Cigarette Cigarette Packs Per Day: 10 Cigarettes Per Day: 200.0 Years Smoked: 35 Smoked in Last 30 Days: Yes Second Hand Smoke Exposure: No Use of substances other than those prescribed or required for medical reasons: Yes Substance Use Type: Crack/Cocaine Substance Use Frequency: Weekly Last Used Substance: Hours (ago) Advance Directives: No Advance Directives Information Provided: Yes Advance Directives Date on File: 04/15/20 Patient : No service: No Current occupational status: disabled 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 Oriented X3. Very anxious Eyes: PERRLA, No Nystagmus ENT: Pharynx normal. Oral Mucosa moist Neck: Normal inspection. Neck supple. CVS: Normal heart rate and rhythm. Pulses normal. Respiratory: No respiratory distress. Equal air entry bilateral, no wheezing/rales/rhonchi Abdomen: Soft and nontender. Bowel sounds are present, no mass palpable, no CVA tenderness Skin: Skin warm and dry. Normal skin color. Normal skin turgor. Extremities: No lower extremity edema. No calf tenderness Neuro: Oriented X 3. No motor deficit. No sensory deficit.No cerebellar signs , cranial nerves II-XII intact Medications Administered Discontinued Medications Generic Name Dose Route Start Last Admin Trade Name Terenceq PRN Reason Stop Dose Admin Albuterol Sulfate 2.5 mg/ 0 mg 10/17/22 22:53 10/17/22 23:23 Albuterol/Ipratropium 3 ml INHALE 10/17/22 22:54 5 each ONCE ONE Administration Diphenhydramine HCl 50 mg 10/17/22 22:53 10/17/22 23:10 Diphenhydramine Hcl 25 Mg Capsule PO 10/17/22 22:54 50 mg ONCE ONE Administration Lorazepam 2 mg 10/17/22 22:53 10/17/22 23:09 Lorazepam 1 Mg Tablet PO 10/17/22 22:54 2 mg ONCE ONE Administration Medical Decision Making Medical Decision Making MDM Narrative: Patient feeling better after Ativan and Benadryl discharge patient home on Ativan for anxiety Discharge Plan Discharge Clinical Impression: Anxiety Patient Disposition: Home, Self-Care Instructions: Anxiety (ED) Additional Instructions: Take Ativan for anxiety Follow up with your PCP Prescriptions: New lorazepam [Ativan] 1 mg tablet 1 mg PO DAILY PRN (Reason: anxiety) Qty: 10 0RF No Action (DME) lancets [FreeStyle Lancets] 28 gauge misc See Rx Instructions .ROUTE .MEDSUPPLY Qty: 100 1RF Rx Instructions: Use to check blood sugar daily or if symptomatic hypo/hypergylcemia dicyclomine 10 mg capsule 20 mg PO QID PRN (Reason: for cramps) Qty: 720 1RF furosemide 20 mg tablet 20 mg PO BID Qty: 180 2RF (DME) 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 meter [FreeStyle Lite Meter] Kit See Rx Instructions .ROUTE .MEDSUPPLY Qty: 1 0RF Rx Instructions: Use to check blood sugar daily or if symptomatic for hypo/hyperglycemia gabapentin 800 mg tablet 800 mg PO QID 30 Days Qty: 120 2RF glipizide 5 mg tablet 5 mg PO DAILY 30 Days Qty: 30 4RF tizanidine 4 mg tablet 4 mg PO Q8H PRN (Reason: muscle spasm) 30 Days Qty: 90 0RF (DME) FreeStyle Lite Strips Strip See Rx Instructions .ROUTE .MEDSUPPLY Qty: 100 1RF Rx Instructions: Use to check blood sugar daily or if symptomatic hypo/hypergylcemia lubiprostone [Amitiza] 8 mcg capsule 8 mcg PO BID Qty: 60 3RF losartan 25 mg tablet 25 mg PO DAILY Qty: 30 0RF Rx Instructions: Future refills pending upcoming appt ibuprofen 800 mg tablet 800 mg PO BID PRN (Reason: pain) Qty: 60 0RF Rx Instructions: Future refills pending upcoming appt prednisone 20 mg tablet See Rx Instructions PO DAILY 10 Days Qty: 15 0RF Rx Instructions: PO daily; Take 2 tabs daily x 5 days, then 1 tablet daily x 5 days sulfamethoxazole-trimethoprim [Bactrim DS] 800-160 mg tablet 1 tab PO BID 10 Days Qty: 20 0RF Trulicity 0.75 mg/0.5 mL pen injector 0.75 mg subcut MO@1000 Qty: 2 0RF acetaminophen 650 mg tablet extended release 650 mg PO Q12H PRN (Reason: pain) 30 Days Qty: 60 0RF famotidine [Zantac-360 (famotidine)] 10 mg tablet 10 mg PO BEDTIME Qty: 90 0RF aspirin 81 mg tablet,delayed release (DR/EC) 81 mg PO DAILY 90 Days Qty: 90 1RF albuterol sulfate [ProAir HFA] 90 mcg/actuation HFA aerosol inhaler 2 puff inhalation Q6H PRN (Reason: shortness of breath or wheezing) 30 Days Qty: 8.5 4RF Rx Instructions: proair ipratropium-albuterol 0.5 mg-3 mg(2.5 mg base)/3 mL solution for nebulization 3 ml inhalation BID PRN (Reason: Wheezing) hydroxyzine HCl 25 mg tablet 25 mg PO TID PRN (Reason: anxiety) Qty: 5 0RF Stiolto Respimat 2.5-2.5 mcg/actuation mist 2 puff inhalation DAILY 30 Days Qty: 4 6RF theophylline 400 mg tablet extended release 24 hr 400 mg PO BID 30 Days Qty: 60 6RF ipratropium bromide 0.02 % solution 2.5 ml inhalation Q6H PRN (Reason: shortness of breath or wheezing) 30 Days Qty: 225 6RF
[2022-10-17] MEDS: LORazepam 1 MG TABLET 2 MG PO (23:09)
[2022-10-17] MEDS: diphenhydrAMINE HCL 25 MG CAPSULE 50 MG PO (23:10)
--- NOTE | 2022-10-17 23:12 | PC.NURSE ---
Pt calm and cooperative, states increase anxiety x 1 hour prior to arrival, reports drug use 5 hours ago. Denies SI/HI, auditory/visual hallucinations. Pt unable to sit still, trashing and twitching movements. Pt ambulated to the BR with steady gait. Meds given as documented.
[2022-10-17 23:24] VITALS: PULSE 105; RESP 18; O2SAT 96
== END 2022-10-18 01:23 | disposition home or self-care (01) ==
PROVIDERS: Emergency Provider Internal Medicine
DX: F41.9 Anxiety disorder, unspecified (principal); F14.10 Cocaine abuse, uncomplicated; F17.200 Nicotine dependence, unspecified, uncomplicated; Z79.899 Other long term (current) drug therapy
CPT/HCPCS: 94640; 99284

== ENCOUNTER 2022-10-27 21:46 | Emergency (ER) | payer OTHER, SELFPAY ==
[2022-10-27 21:56] VITALS: BP 110/82; BP 111/57; PULSE 102; PULSE 104; RESP 22; TEMP 36.6; O2SAT 96; BMI 35.2
--- NOTE | 2022-10-27 22:04 | ECG_ITS ---
Test Reason : CHEST PAIN Blood Pressure : / mmHG Vent. Rate : 096 BPM Atrial Rate : 096 BPM P-R Int : 132 ms QRS Dur : 090 ms QT Int : 370 ms P-R-T Axes : 042 130 064 degrees QTc Int : 467 ms Sinus rhythm with Premature atrial complexes Left posterior fascicular block Possible Inferior infarct (cited on or before 01-OCT-2022) Abnormal ECG When compared with ECG of 01-OCT-2022 04:18, Premature atrial complexes are now Present Referred By: Ly Bazan Electronically Signed By:Dallin Birmingham
--- NOTE | 2022-10-27 22:04 | ED.GENADULT ---
HPI - General Adult General Chief complaint: Chest Pain Stated complaint: ANXIETY, DIZZINESS Time Seen by Provider: 10/27/22 22:00 Source: patient Mode of arrival: EMS Limitations: no limitations History of Present Illness HPI narrative: Patient comes to the emergency room complaining of anxiety. Patient states that earlier today, approximately 4 hours ago she smoked crack cocaine, and couple of hours later she started feeling very anxious. Patient states that this has happened multiple times in the past and it only happens when she uses cocaine. Patient complaining of chest pressure, states it also happens when she is very anxious. Denies shortness of breath. Related Data Home Medications Medication Instructions Recorded Confirmed ipratropium 0.5 mg-albuterol 3 mg 3 ml inhalation BID PRN Wheezing 10/01/22 10/01/22 (2.5 mg base)/3 mL nebulization soln Previous Rx's Medication Instructions Recorded lancets 28 gauge ([employer] #100 ea 01/20/21 Lancets) dicyclomine 10 mg capsule 20 mg PO QID PRN for cramps #720 11/07/21 caps furosemide 20 mg tablet 20 mg PO BID #180 tabs 02/06/22 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 meter (FreeStyle #1 ea 03/01/22 Lite Meter kit) theophylline 400 mg 400 mg PO BID 30 days #60 tabs 04/06/22 tablet,extended release 24 hr tiotropium 2.5 mcg-olodaterol 2.5 2 puff inhalation DAILY 30 days #4 05/11/22 mcg/actuation mist for inhalation grams (Stiolto Respimat) gabapentin 800 mg tablet 800 mg PO QID 30 days #120 tabs 08/04/22 glipizide 5 mg tablet 5 mg PO DAILY 30 days #30 tabs 08/30/22 tizanidine 4 mg tablet 4 mg PO Q8H PRN muscle spasm 30 09/12/22 days #90 tabs blood sugar diagnostic (FreeStyle #100 ea 09/16/22 Lite Strips) ipratropium bromide 0.02 % 2.5 ml inhalation Q6H PRN 09/27/22 solution for inhalation shortness of breath or wheezing 30 days #225 mL hydroxyzine HCl 25 mg tablet 25 mg PO TID PRN anxiety #5 tabs 10/01/22 ibuprofen 800 mg tablet 800 mg PO BID PRN pain #60 tabs 10/03/22 losartan 25 mg tablet 25 mg PO DAILY #30 tabs 10/03/22 lubiprostone 8 mcg capsule 8 mcg PO BID #60 caps 10/03/22 (Amitiza) prednisone 20 mg tablet See Rx Instructions PO DAILY 10 10/08/22 days #15 tabs sulfamethoxazole 800 1 tab PO BID 10 days #20 tabs 10/08/22 mg-trimethoprim 160 mg tablet (Bactrim DS) acetaminophen 650 mg 650 mg PO Q12H PRN pain 30 days 10/09/22 tablet,extended release #60 tabs dulaglutide 0.75 mg/0.5 mL 0.75 mg (0.5 mL) subcut MO@1000 #2 10/09/22 subcutaneous pen injector mL (Trulicity) famotidine 10 mg tablet 10 mg PO BEDTIME #90 tabs 10/12/22 (Zantac-360 (famotidine)) albuterol sulfate 90 mcg/actuation 2 puff inhalation Q6H PRN 10/16/22 aerosol inhaler (ProAir HFA) shortness of breath or wheezing 30 days #8.5 grams aspirin 81 mg tablet,delayed 81 mg PO DAILY 90 days #90 tabs 10/16/22 release lorazepam 1 mg tablet (Ativan) 1 mg PO DAILY PRN anxiety #10 tabs 10/18/22 lorazepam 0.5 mg tablet (Ativan) 0.5 mg PO BID PRN anxiety #6 tabs 10/27/22 Allergies Allergy/AdvReac Type Severity Reaction Status Date / Time doxycycline Allergy Severe Swelling Verified 10/27/22 22:04 varenicline [From CHANTIX] Allergy Severe ANAPHYLAXIS Verified 10/27/22 22:04 barium sulfate Allergy Intermediate angioedema Verified 10/27/22 22:04 azithromycin Allergy Mild Rash Verified 10/27/22 22:04 cetirizine Allergy Mild Rash Verified 10/27/22 22:04 famotidine Allergy Mild Rash Verified 10/27/22 22:04 linaclotide [Linzess] Allergy Mild Rash Verified 10/27/22 22:04 Review of Systems Review of Systems: Constitutional : No Weight loss, No Fever, No Chills, No Night Sweats, No Fatigue, No Malaise ENT/Mouth : No Hearing loss, No Ear Pain, No Nasal Congestion, No Sinus Pain, No Hoarseness, No sore throat, No Rhinorrhea, No Swallowing Difficulty Eyes: No Eye Pain, No Swelling, No Redness, No Foreign Body, No Discharge, No Vision Changes Cardiovascular : No Chest Pain, No SOB, No Dyspnea on Exertion, No Orthopnea, No Edema, No Palpitations Respiratory : No Cough, No Sputum, No Wheezing, No Smoke Exposure, No Dyspnea Gastrointestinal : No Nausea, No Vomiting, No Diarrhea, No Constipation, No abdominal Pain, No Hematochezia, No Melena Genitourinary : no irregular bleeding, No Dysuria, No Urinary Frequency, No Hematuria, No Urinary Incontinence, No Urgency, No Flank Pain, No Urinary Flow Changes, No Hesitancy Musculoskeletal : No joint pain, No Myalgias, No Joint Swelling Skin : No Skin Lesions, No rash Neuro : No Weakness, No Numbness, No Paresthesias, No Loss of Consciousness, No Dizziness, No Headache Psych : Complaining of anxiety, no depression, no SI or HI, admits using crack cocaine Heme/Lymph: No Bruising, No Bleeding,No Lymphadenopathy Endocrine : No Polyuria, No Polydipsia, No Temperature Intolerance PMFSH Past Medical History Medical History Acute and chronic respiratory failure with hypercapnia Acute and chronic respiratory failure, unspecified whether with hypoxia or hypercapnia Acute and chronic respiratory failure, unspecified whether with hypoxia or hypercapnia Asthma Bustos's esophagus Carpal tunnel syndrome of right wrist Chest discomfort Chronic idiopathic constipation Chronic renal failure, stage 2 (mild) Cocaine abuse COPD (chronic obstructive pulmonary disease) COPD exacerbation Crack cocaine use Depression Diabetes mellitus Encounter for preoperative pulmonary examination Gastroparesis GERD (gastroesophageal reflux disease) Hernia High triglycerides HTN (hypertension) Knee pain, bilateral Nausea & vomiting Obesity (BMI 30-39.9) Respiratory failure Smoker Surgical History History of carpal tunnel release History of esophagogastroduodenoscopy (EGD) History of open reduction and internal fixation (ORIF) procedure History of pubovaginal sling History of umbilical hernia repair Hx of section Hx of cholecystectomy Hx of tubal ligation Family History Family History Father Heart disease HENRY (obstructive sleep apnea) Family history of breast cancer Mother Asthma Emphysema, unspecified Bronchitis Smoker Alcoholism Bone marrow disease Maternal Grandmother Diabetes Social History Social History Household Members: Unknown / Unable to assess Housing: Unknown / Unable to assess Are you a primary director career to a significant other at home: No Do you presently have visiting nurse or other home services: Yes (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) Unable to assess alcohol history related to: Unknown Alcohol intake: former Patient Tobacco Use Status: Current everyday Tobacco user Tobacco use type: Cigarette Cigarette Packs Per Day: 10 Cigarettes Per Day: 200.0 Years Smoked: 35 Second Hand Smoke Exposure: No Substance Use Type: Crack/Cocaine Advance Directives: No Advance Directives Information Provided: No Advance Directives Date on File: 04/15/20 service: No Current occupational status: disabled 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 Oriented X3. Seems anxious Eyes: Pupils equal, round and reactive to light. ENT: Pharynx normal. Neck: Normal inspection. Neck supple. No lymph nodes noted. No crepitus CVS: Normal heart rate and rhythm. Pulses normal. Normal S1 and S2 Respiratory: No respiratory distress. Breath sounds normal. No Wheezing. No rales Abdomen: Soft and nontender. No rigidity. No distention. Skin: Skin warm and dry. Normal skin color. Normal skin turgor. Extremities: No lower extremity edema. No Lacerations. No Rash Neuro: Oriented X 3. No motor deficit. No sensory deficit. Moving all extremities. No slurred speech. CN 2 through 12 grossly intact Psych: calm, cooperative, anxious Course Course Course Narrative: -basic labs and EKG pending -patient requesting medication for anxiety. Medications Administered Discontinued Medications Generic Name Dose Route Start Last Admin Trade Name Freq PRN Reason Stop Dose Admin Lorazepam 2 mg 10/27/22 22:04 10/27/22 22:08 Lorazepam 1 Mg Tablet PO 10/27/22 22:05 2 mg ONCE ONE Administration Medical Decision Making Medical Decision Making [facility] [place] Narrative: -my interpretation of patient's EKG: Sinus rhythm, heart rate 96, no ST segment depression or elevation, no T-wave inversion, QTC 467, occasional PACs -patient feeling better, patient ready for discharge Differential Diagnosis Differential Diagnoses: The differential diagnosis associated with the presentation includes (Anxiety, substance abuse, coronary vasospasm) Lab Data MDM Lab Attestation statement: I reviewed the patient's lab results. 10/27/22 22:13 10/27/22 22:13 Labs: Lab Results 10/27/22 10/27/22 10/27/22 Range/Units 22:13 22:13 22:13 WBC 11.6 H (4.8-10.8) X10*3/uL RBC 5.01 (4.20-5.50) X10*6/uL Hgb 12.8 (12.0-16.0) g/dl Hct 40.6 (37.0-47.0) % MCV 81.0 (80.0-98.0) fL MCH 25.5 L (27.0-33.0) pg MCHC 31.5 (31.0-35.0) g/dl RDW 17.2 H (11.0-16.0) % Plt Count 387 (160-400) X10*3/uL MPV 8.6 L (9.4-12.3) fL Immature Gran % (Auto) 0.3 (0.0-0.4) % Neut % (Auto) 64.7 (45-73) % Lymph % (Auto) 26.5 (20-40) % [place] % (Auto) 6.9 (2-11) % Eos % (Auto) 1.3 (0-4) % Baso % (Auto) 0.3 (0-2) % Lymph # (Auto) 3.1 (1.2-4.9) X10*3/uL [place] # (Auto) 0.8 (0.1-1.2) X10*3/uL Eos # (Auto) 0.2 (0.0-0.4) X10*3/uL Baso # (Auto) 0.0 (0.0-0.2) X10*3/uL Abs Immat Gran (auto) 0.03 (0.00-0.03) X10*3/uL Absolute Neuts (auto) 7.6 (2.0-8.3) x10*3/uL Absolute Nucleated RBC 0.000 (0.0-0.012) X10*3/uL Nucleated RBC % (auto) 0.0 (0.0-0.2) /100WBC Sodium 139 (135-145) mmol/L Potassium 3.3 (3.3-5.1) mmol/L Chloride 104 (96-108) mmol/L Carbon Dioxide 23 (22-29) mmol/L Anion Gap 15 (12-20) BUN 11 (9-16) mg/dL Creatinine 0.86 (0.5-1.4) mg/dL Estim Creat Clear Calc 68.0 Estimated GFR > 60 Random Glucose 116 H (60-115) mg/dL Calcium 8.9 (8.4-10.2) mg/dL Troponin I High Sens 6.7 (<3.5-17.0) ng/L Discharge Plan Discharge Clinical Impression: Anxiety, Substance abuse Patient Disposition: Home, Self-Care Instructions: Cocaine Abuse (ED), Anxiety (ED) Additional Instructions: Please follow-up with your primary care physician tomorrow. If you have any worsening or new symptoms, please return to the emergency room or call 911 Prescriptions: New lorazepam [Ativan] 0.5 mg tablet 0.5 mg PO BID PRN (Reason: anxiety) Qty: 6 0RF No Action (DME) lancets [FreeStyle Lancets] 28 gauge misc See Rx Instructions .ROUTE .MEDSUPPLY Qty: 100 1RF Rx Instructions: Use to check blood sugar daily or if symptomatic hypo/hypergylcemia dicyclomine 10 mg capsule 20 mg PO QID PRN (Reason: for cramps) Qty: 720 1RF furosemide 20 mg tablet 20 mg PO BID Qty: 180 2RF (DME) 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 meter [FreeStyle Lite Meter] Kit See Rx Instructions .ROUTE .MEDSUPPLY Qty: 1 0RF Rx Instructions: Use to check blood sugar daily or if symptomatic for hypo/hyperglycemia gabapentin 800 mg tablet 800 mg PO QID 30 Days Qty: 120 2RF glipizide 5 mg tablet 5 mg PO DAILY 30 Days Qty: 30 4RF tizanidine 4 mg tablet 4 mg PO Q8H PRN (Reason: muscle spasm) 30 Days Qty: 90 0RF (DME) FreeStyle Lite Strips Strip See Rx Instructions .ROUTE .MEDSUPPLY Qty: 100 1RF Rx Instructions: Use to check blood sugar daily or if symptomatic hypo/hypergylcemia lubiprostone [Amitiza] 8 mcg capsule 8 mcg PO BID Qty: 60 3RF losartan 25 mg tablet 25 mg PO DAILY Qty: 30 0RF Rx Instructions: Future refills pending upcoming appt ibuprofen 800 mg tablet 800 mg PO BID PRN (Reason: pain) Qty: 60 0RF Rx Instructions: Future refills pending upcoming appt prednisone 20 mg tablet See Rx Instructions PO DAILY 10 Days Qty: 15 0RF Rx Instructions: PO daily; Take 2 tabs daily x 5 days, then 1 tablet daily x 5 days sulfamethoxazole-trimethoprim [Bactrim DS] 800-160 mg tablet 1 tab PO BID 10 Days Qty: 20 0RF Trulicity 0.75 mg/0.5 mL pen injector 0.75 mg subcut MO@1000 Qty: 2 0RF acetaminophen 650 mg tablet extended release 650 mg PO Q12H PRN (Reason: pain) 30 Days Qty: 60 0RF famotidine [Zantac-360 (famotidine)] 10 mg tablet 10 mg PO BEDTIME Qty: 90 0RF aspirin 81 mg tablet,delayed release (DR/EC) 81 mg PO DAILY 90 Days Qty: 90 1RF albuterol sulfate [ProAir HFA] 90 mcg/actuation HFA aerosol inhaler 2 puff inhalation Q6H PRN (Reason: shortness of breath or wheezing) 30 Days Qty: 8.5 4RF Rx Instructions: proair lorazepam [Ativan] 1 mg tablet 1 mg PO DAILY PRN (Reason: anxiety) Qty: 10 0RF ipratropium-albuterol 0.5 mg-3 mg(2.5 mg base)/3 mL solution for nebulization 3 ml inhalation BID PRN (Reason: Wheezing) hydroxyzine HCl 25 mg tablet 25 mg PO TID PRN (Reason: anxiety) Qty: 5 0RF Stiolto Respimat 2.5-2.5 mcg/actuation mist 2 puff inhalation DAILY 30 Days Qty: 4 6RF theophylline 400 mg tablet extended release 24 hr 400 mg PO BID 30 Days Qty: 60 6RF ipratropium bromide 0.02 % solution 2.5 ml inhalation Q6H PRN (Reason: shortness of breath or wheezing) 30 Days Qty: 225 6RF
[2022-10-27] MEDS: LORazepam 1 MG TABLET 2 MG PO (22:08)
[2022-10-27 22:17] LABS: MANUAL DIFF FLAG NO
[2022-10-27 22:19] LABS: Basophils Percent Auto 0.3 % (0-2); Eosinophils Absolute Auto 0.2 X10*3/uL (0.0-0.4); Eosinophils Percent Auto 1.3 % (0-4); Hematocrit 40.6 % (37.0-47.0); Hemoglobin 12.8 g/dl (12.0-16.0); Imm Gran Abs Auto 0.03 X10*3/uL (0.00-0.03); Imm Gran Pct Auto 0.3 % (0.0-0.4); Lymphocytes Absolute Auto 3.1 X10*3/uL (1.2-4.9); Lymphocytes Percent Auto 26.5 % (20-40); Mean Corpuscular HGB Conc 31.5 g/dl (31.0-35.0); Mean Corpuscular Hemoglobin 25.5 pg (27.0-33.0); Mean Platelet Volume 8.6 fL (9.4-12.3); Monocytes Absolute Auto 0.8 X10*3/uL (0.1-1.2); Monocytes Percent Auto 6.9 % (2-11); Neutrophils Absolute Auto 7.6 x10*3/uL (2.0-8.3); Neutrophils Percent Auto 64.7 % (45-73); Platelet Count 387 X10*3/uL (160-400); Red Blood Count 5.01 X10*6/uL (4.20-5.50); Red Cell Distribution Width 17.2 % (11.0-16.0); White Blood Count 11.6 X10*3/uL (4.8-10.8)
[2022-10-27 22:33] LABS: Anion Gap 15 (12-20); Blood Urea Nitrogen 11 mg/dL (9-16); Calcium 8.9 mg/dL (8.4-10.2); Carbon Dioxide 23 mmol/L (22-29); Chloride 104 mmol/L (96-108); Estimated Glomerular Filt Rate > 60; Glucose Random 116 mg/dL (60-115); Potassium 3.3 mmol/L (3.3-5.1); Sodium 139 mmol/L (135-145)
[2022-10-27 22:41] LABS: Troponin-I High Sensitivity 6.7 ng/L (<3.5-17.0)
--- NOTE | 2022-10-27 23:43 | PC.NURSE ---
Addendum entered by Luh Carcamo 10/27/22 23:47: Pt denies CP radiation Original Note: Pt A&Ox4, reports 8/10 intermittent right sided CP, states it feels like pressure, started 10 mins prior to arrival, reported calling EMS r/t panic attack. Pt placed on bedside monitor, EKG obtained and reviewed by provider. Lab work obtained and sent to lab. Pt tachycardic on the monitor and anxious. Pt not staying still on stretcher.
== END 2022-10-27 23:48 | disposition home or self-care (01) ==
PROVIDERS: Emergency Provider Emergency Medicine
DX: F41.9 Anxiety disorder, unspecified (principal); F14.10 Cocaine abuse, uncomplicated; F17.200 Nicotine dependence, unspecified, uncomplicated; Z79.899 Other long term (current) drug therapy; Z79.82 Long term (current) use of aspirin
CPT/HCPCS: 36415; 80048; 84484; 85025; 93005; 99283; 99284

== ENCOUNTER 2022-11-05 03:59 | Inpatient (IN) | payer OTHER, SELFPAY ==
[2022-11-05] VITALS (9 sets, daily range): BP systolic 120–140; BP diastolic 61–84; PULSE 80–108; RESP 14–20; TEMP 36.1–36.9; O2SAT 85–98; BMI 35.3
--- NOTE | ~2022-11-05 | XR_ITS ---
EXAMINATION: XR CHEST CLINICAL INFORMATION: Shortness of breath COMPARISON: 10/01/2022 TECHNIQUE: Frontal view of the chest was obtained. FINDINGS: Lung volumes are symmetric. No focal consolidation is seen. No evidence of pneumothorax, pleural effusion, or pulmonary edema. Cardiac size is within normal limits. Calcification is present at the aortic arch. No acute osseous findings are seen. XR/XR chest 1V IMPRESSION: No acute cardiopulmonary findings.
--- NOTE | ~2022-11-05 | CT_ITS ---
EXAMINATION: CT ABDOMEN AND PELVIS WITH CONTRAST CLINICAL INFORMATION: Epigastric abdominal pain. COMPARISON: Multiple priors with the last abdomen and pelvic CT scan of 04/29/2020. TECHNIQUE: Multidetector volumetric images were obtained from the superior aspect of the liver through the pubic symphysis following administration 85 mL of Omnipaque 350 intravenous contrast. Sagittal and coronal reformatted images were obtained on the technologist's workstation. Oral contrast: No This CT examination was performed using dose optimization techniques as appropriate, variously including the following: *Automated exposure control *Adjustment of mA and/or kV according to patient size (this includes techniques or standardized protocols for targeted exams where dose is matched to indication/reason for exam; i.e. extremities or head) *Use of iterative reconstruction technique DLP: 571 mGy-cm FINDINGS: LUNG BASES: Subsegmental atelectasis is again noted in the right middle lobe and lingula. No pleural or pericardial effusion. Trace pericardial fluid versus thickening. LIVER, GALLBLADDER, AND BILIARY TREE: The liver is normal in size, shape, and attenuation. No focal hepatic lesion or biliary ductal dilatation is present. The gallbladder is surgically absent. PANCREAS: Unremarkable. No evidence of peripancreatic stranding or fluid. SPLEEN: Unremarkable. ADRENAL GLANDS: Mildly nodular appearance of the right adrenal gland is stable since the previous CT scan of 07/06/2015. There is a left adrenal nodule measuring 1.4 x 1.4 cm, mildly increased in size compared to previous CT scan of 07/06/2015 (1.1 x 1.3 cm), 1.2 x 1.3 cm (04/29/2020). This left adrenal nodule represented an adrenal adenoma on prior noncontrast CT scan. No further imaging follow-up of this finding is warranted. KIDNEYS AND URETERS: The kidneys are normal in size and attenuation. Bilateral multiple focal areas of cortical scarring and thinning are noted. A 0.3 cm calculus is noted in the upper pole of the left kidney. Bilateral renal vascular calcifications are noted in the [place]. There is a 0.2 cm nonobstructing calculus versus vascular calcification in the lower pole of the right kidney. A 0.8 cm low-attenuation in the lower pole of the right kidney (series 4 image 349) is too small to characterize accurately; the finding is not clearly seen on the previous noncontrast and contrast-enhanced cross-sectional imaging. No further imaging follow-up of this finding is warranted. No evidence of hydroureteronephrosis or significant perinephric stranding. BLADDER: Underdistended and therefore not optimally evaluated. However, there is no evidence of radiopaque calculi or asymmetrical bladder wall thickening. GASTROINTESTINAL TRACT: The stomach is largely decompressed, however, grossly appears unremarkable. No evidence of abnormal small bowel dilatation. Colon is normal in caliber. No evidence of colonic wall thickening or pericolonic fat stranding. An appendix is not seen, however, there are no inflammatory changes in the expected location of the appendix. A few scattered diverticula of the descending colon and sigmoid colon are seen, without evidence of acute diverticulitis. ABDOMINAL WALL: Ventral of wall hernia repair changes are noted with mesh in place, in the supraumbilical and infraumbilical region. There is a small fat-containing umbilical hernia measuring 2.4 cm in AP dimension. PERITONEAL CAVITY: There is no evidence of free intraperitoneal air or fluid. No evidence of mesenteric or omental nodularity or inflammatory changes are seen. LYMPH NODES: No evidence of pathologically enlarged lymph nodes. VASCULAR: The aortoiliac vessels are normal in caliber. Moderate calcific atherosclerosis of the aortoiliac vessels. PELVIC VISCERA: Unremarkable CT appearance of the uterus and ovaries and adnexa. Trace air in the vaginal cuff is likely external in origin. OSSEOUS STRUCTURES: No acute or suspicious osseous lesion is noted. Subarticular focus of sclerosis in the left femoral head is again noted representing changes of avascular necrosis. A few additional small sclerotic foci in the pelvic bones are again noted representing small bone islands. Mild degenerative changes in the spine. Vacuum disc phenomenon is noted at L4-L5 level. CT/CT abdomen pelvis w IV con IMPRESSION: 1. No acute abnormality is identified to explain patient's symptoms. No CT evidence of acute pancreatitis. 2. Status post cholecystectomy. No intrahepatic or extrahepatic biliary ductal dilatation. No evidence of choledocholithiasis. 3. Bilateral renal focal areas of cortical scarring and thinning. A 0.3 cm calculus in the upper pole of the left kidney and 0.2 cm calculus versus vascular calcification in the lower pole of the right kidney. No evidence of hydroureteronephrosis or perinephric stranding. A 0.8 cm low-attenuation in the lower pole of the right kidney is too small to characterize accurately, however, statistically likely represents a cyst. 4. Left adrenal nodule measuring 1.4 x 1.4 cm, mildly increased in size compared to previous CT scan of 07/06/2015 and have represented an adrenal adenoma on prior noncontrast CT scan. No further imaging follow-up of this finding is warranted. 5. Colonic diverticulosis without acute diverticulitis. Fleischner guidelines were followed.
--- NOTE | 2022-11-05 04:07 | ECG_ITS ---
Test Reason : SOB Blood Pressure : / mmHG Vent. Rate : 081 BPM Atrial Rate : 081 BPM P-R Int : 132 ms QRS Dur : 086 ms QT Int : 384 ms P-R-T Axes : 016 148 063 degrees QTc Int : 446 ms Sinus rhythm with Premature atrial complexes Left posterior fascicular block Possible Inferior infarct (cited on or before 01-OCT-2022) Abnormal ECG When compared with ECG of 27-OCT-2022 22:14, No significant change was found Referred By: Generic ED Physician Electronically Signed By:DAVIS WALKER
[2022-11-05 04:26] LABS: MANUAL DIFF FLAG NO
[2022-11-05 04:27] LABS: Basophils Percent Auto 0.3 % (0-2); Eosinophils Absolute Auto 0.1 X10*3/uL (0.0-0.4); Hematocrit 43.6 % (37.0-47.0); Hemoglobin 13.7 g/dl (12.0-16.0); Imm Gran Abs Auto 0.03 X10*3/uL (0.00-0.03); Imm Gran Pct Auto 0.2 % (0.0-0.4); Lymphocytes Absolute Auto 2.8 X10*3/uL (1.2-4.9); Lymphocytes Percent Auto 22.9 % (20-40); Mean Corpuscular HGB Conc 31.4 g/dl (31.0-35.0); Mean Corpuscular Hemoglobin 25.4 pg (27.0-33.0); Mean Corpuscular Volume 80.9 fL (80.0-98.0); Mean Platelet Volume 8.4 fL (9.4-12.3); Monocytes Absolute Auto 0.8 X10*3/uL (0.1-1.2); Monocytes Percent Auto 6.5 % (2-11); Neutrophils Absolute Auto 8.5 x10*3/uL (2.0-8.3); Neutrophils Percent Auto 69.1 % (45-73); Platelet Count 410 X10*3/uL (160-400); Red Blood Count 5.39 X10*6/uL (4.20-5.50); Red Cell Distribution Width 16.7 % (11.0-16.0); White Blood Count 12.3 X10*3/uL (4.8-10.8)
[2022-11-05 04:44] LABS: Anion Gap 14 (12-20); Blood Urea Nitrogen 9 mg/dL (9-16); Calcium 8.8 mg/dL (8.4-10.2); Carbon Dioxide 27 mmol/L (22-29); Chloride 104 mmol/L (96-108); Estimated Glomerular Filt Rate > 60; Glucose Random 110 mg/dL (60-115); Potassium 3.4 mmol/L (3.3-5.1); Sodium 142 mmol/L (135-145)
[2022-11-05 04:45] LABS: Troponin-I High Sensitivity 8.1 ng/L (<3.5-17.0)
--- NOTE | 2022-11-05 05:42 | ED_ITS ---
HPI - SOB/Dyspnea General Chief Complaint: Dyspnea Stated Complaint: SOB Time Seen by Provider: 11/05/22 05:04 History of Present Illness HPI Narrative: Patient is a 52-year-old female with a history of COPD presents today with having coughing shortness of breath that woke her up at night. She also had epigastric pain. + nausea/ vomiting and generalized malaise , no diarrhea noted. She feels very tired. Very weak. No fever no chills. Positive coughing and shortness of breath. History of exacerbation of COPD in the past. Complaining of continuing shortness of breath since last night. Patient still smokes. Been compliant with her medication including her inhalers. Related Data Home Medications Medication Instructions Recorded Confirmed ipratropium 0.5 mg-albuterol 3 mg 3 ml inhalation BID PRN Wheezing 10/01/22 10/01/22 (2.5 mg base)/3 mL nebulization soln Previous Rx's Medication Instructions Recorded lancets 28 gauge ([employer] [place]Style #100 ea 01/20/21 Lancets) dicyclomine 10 mg capsule 20 mg PO QID PRN for cramps #720 11/07/21 caps furosemide 20 mg tablet 20 mg PO BID #180 tabs 02/06/22 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 meter ([employer]FriendMailyle #1 ea 03/01/22 Lite Meter kit) theophylline 400 mg 400 mg PO BID 30 days #60 tabs 04/06/22 tablet,extended release 24 hr tiotropium 2.5 mcg-olodaterol 2.5 2 puff inhalation DAILY 30 days #4 05/11/22 mcg/actuation mist for inhalation grams (Stiolto Respimat) gabapentin 800 mg tablet 800 mg PO QID 30 days #120 tabs 08/04/22 glipizide 5 mg tablet 5 mg PO DAILY 30 days #30 tabs 08/30/22 tizanidine 4 mg tablet 4 mg PO Q8H PRN muscle spasm 30 09/12/22 days #90 tabs blood sugar diagnostic (FreeStyle #100 ea 09/16/22 Lite Strips) ipratropium bromide 0.02 % 2.5 ml inhalation Q6H PRN 09/27/22 solution for inhalation shortness of breath or wheezing 30 days #225 mL hydroxyzine HCl 25 mg tablet 25 mg PO TID PRN anxiety #5 tabs 10/01/22 ibuprofen 800 mg tablet 800 mg PO BID PRN pain #60 tabs 10/03/22 losartan 25 mg tablet 25 mg PO DAILY #30 tabs 10/03/22 lubiprostone 8 mcg capsule 8 mcg PO BID #60 caps 10/03/22 (Amitiza) prednisone 20 mg tablet See Rx Instructions PO DAILY 10 10/08/22 days #15 tabs sulfamethoxazole 800 1 tab PO BID 10 days #20 tabs 10/08/22 mg-trimethoprim 160 mg tablet (Bactrim DS) acetaminophen 650 mg 650 mg PO Q12H PRN pain 30 days 10/09/22 tablet,extended release #60 tabs dulaglutide 0.75 mg/0.5 mL 0.75 mg (0.5 mL) subcut MO@1000 #2 10/09/22 subcutaneous pen injector mL (Trulicity) famotidine 10 mg tablet 10 mg PO BEDTIME #90 tabs 10/12/22 (Zantac-360 (famotidine)) albuterol sulfate 90 mcg/actuation 2 puff inhalation Q6H PRN 10/16/22 aerosol inhaler (ProAir HFA) shortness of breath or wheezing 30 days #8.5 grams aspirin 81 mg tablet,delayed 81 mg PO DAILY 90 days #90 tabs 10/16/22 release lorazepam 1 mg tablet (Ativan) 1 mg PO DAILY PRN anxiety #10 tabs 10/18/22 lorazepam 0.5 mg tablet (Ativan) 0.5 mg PO BID PRN anxiety #6 tabs 10/27/22 Allergies Allergy/AdvReac Type Severity Reaction Status Date / Time doxycycline Allergy Severe Swelling Verified 11/05/22 04:26 varenicline [From CHANTIX] Allergy Severe ANAPHYLAXIS Verified 11/05/22 04:26 barium sulfate Allergy Intermediate angioedema Verified 11/05/22 04:26 azithromycin Allergy Mild Rash Verified 11/05/22 04:26 cetirizine Allergy Mild Rash Verified 11/05/22 04:26 famotidine Allergy Mild Rash Verified 11/05/22 04:26 linaclotide [Linzess] Allergy Mild Rash Verified 11/05/22 04:26 Review of Systems Review of Systems: Positive shortness of breath PMFSH Past Medical History Attestation statement: The following information was validated with the patient. Medical History Acute and chronic respiratory failure with hypercapnia Acute and chronic respiratory failure, unspecified whether with hypoxia or hypercapnia Acute and chronic respiratory failure, unspecified whether with hypoxia or hypercapnia Asthma Bustos's esophagus Carpal tunnel syndrome of right wrist Chest discomfort Chronic idiopathic constipation Chronic renal failure, stage 2 (mild) Cocaine abuse COPD (chronic obstructive pulmonary disease) COPD exacerbation Crack cocaine use Depression Diabetes mellitus Encounter for preoperative pulmonary examination Gastroparesis GERD (gastroesophageal reflux disease) Hernia High triglycerides HTN (hypertension) Knee pain, bilateral Nausea & vomiting Obesity (BMI 30-39.9) Respiratory failure Smoker Surgical History History of carpal tunnel release History of esophagogastroduodenoscopy (EGD) History of open reduction and internal fixation (ORIF) procedure History of pubovaginal sling History of umbilical hernia repair Hx of section Hx of cholecystectomy Hx of tubal ligation Family History Family History Father Heart disease HENRY (obstructive sleep apnea) Family history of breast cancer Mother Asthma Emphysema, unspecified Bronchitis Smoker Alcoholism Bone marrow disease Maternal Grandmother Diabetes Social History Social History Household Members: Unknown / Unable to assess Housing: Unknown / Unable to assess Are you a primary career orientation teacher to a significant other at home: No Do you presently have visiting nurse or other home services: Yes (DINING SERVICES DIRECTOR-daughter) Unable to assess alcohol history related to: Unknown Alcohol intake: former Patient Tobacco Use Status: Current everyday Tobacco user Tobacco use type: Cigarette Cigarette Packs Per Day: 10 Cigarettes Per Day: 200.0 Years Smoked: 35 Second Hand Smoke Exposure: No Substance Use Type: Crack/Cocaine Advance Directives: No Advance Directives Information Provided: No Advance Directives Date on File: 04/15/20 service: No Current occupational status: disabled 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 Oriented X3. No acute distress. Eyes: Pupils equal, round and reactive to light. ENT: Pharynx normal. Neck: Normal inspection. Neck supple. No lymph nodes noted. No crepitus CVS: Normal heart rate and rhythm. Pulses normal. Normal S1 and S2 Respiratory: Show diminished breath sounds bilaterally Abdomen: Soft and nontender. No rigidity. No distention. good BS x4 Skin: Skin warm and dry. Normal skin color. Normal skin turgor. Extremities: No lower extremity edema. Neurovascular intact to all extremities. No Lacerations. No Rash Neuro: Oriented X 3. No motor deficit. No sensory deficit. Moving all extermities. No slurred speech Medications Administered Discontinued Medications Generic Name Dose Route Start Last Admin Trade Name Freq PRN Reason Stop Dose Admin Albuterol Sulfate 5 mg 11/05/22 05:39 11/05/22 06:00 Albuterol Sulfate (0.083%) 2.5 Mg/3 Ml Vial.Neb INHALE 11/05/22 05:40 5 mg ONCE ONE Administration Albuterol/Ipratropium 3 ml 11/05/22 05:39 11/05/22 06:01 Albuterol/Iprat 2.5/0.5mg 3 Ml Ampul.Neb INHALE 11/05/22 05:40 3 ml ONCE ONE Administration Iohexol 85 ml 11/05/22 06:16 11/05/22 06:17 Iohexol 350 Mg/Ml 100 Ml Infus..Btl IV 11/05/22 06:17 85 ml ONCE ONE Administration Methylprednisolone Sodium Succinate 125 mg 11/05/22 05:39 11/05/22 06:27 Methylprednisolone Sod Succ 125 Mg/2 Ml Vial IVPUSH 11/05/22 05:40 125 mg ONCE ONE Administration Medical Decision Making Medical Decision Making MDM Narrative: Patient given steroid, continuous neb treatment. With moderate relief of symptoms. Still feels extremely short of breath. Very similar to previous episodes. Patient's chest x-ray was personally reviewed. My interpretation was grossly negative for any acute evidence of infiltrate. I reviewed her CT scan of the abdomen. There is no obstruction there was no perforation noted. Patient's troponin is negative at 8.1. My interpretation of patient's EKG showed a sinus rhythm heart rate is 80 [place] QRS QT within normal limits is no acute ST segment elevation. Because patient continued to have shortness of breath. Feel very weak and tired. Will admit patient for further evaluation monitoring. Differential Diagnosis COPD, CHF Consult Healthcare Provider Management of the patient was discussed with: Hospitalist Lab Data MDM Lab Attestation statement: I reviewed the patient's lab results. 11/05/22 04:19 11/05/22 04:19 Labs: Lab Results 11/05/22 11/05/22 11/05/22 Range/Units 04:19 04:19 04:19 WBC 12.3 H (4.8-10.8) X10*3/uL RBC 5.39 (4.20-5.50) X10*6/uL Hgb 13.7 (12.0-16.0) g/dl Hct 43.6 (37.0-47.0) % MCV 80.9 (80.0-98.0) fL MCH 25.4 L (27.0-33.0) pg MCHC 31.4 (31.0-35.0) g/dl RDW 16.7 H (11.0-16.0) % Plt Count 410 H (160-400) X10*3/uL MPV 8.4 L (9.4-12.3) fL Immature Gran % (Auto) 0.2 (0.0-0.4) % Neut % (Auto) 69.1 (45-73) % Lymph % (Auto) 22.9 (20-40) % [place] % (Auto) 6.5 (2-11) % Eos % (Auto) 1.0 (0-4) % Baso % (Auto) 0.3 (0-2) % Lymph # (Auto) 2.8 (1.2-4.9) X10*3/uL [place] # (Auto) 0.8 (0.1-1.2) X10*3/uL Eos # (Auto) 0.1 (0.0-0.4) X10*3/uL Baso # (Auto) 0.0 (0.0-0.2) X10*3/uL Abs Immat Gran (auto) 0.03 (0.00-0.03) X10*3/uL Absolute Neuts (auto) 8.5 H (2.0-8.3) x10*3/uL Absolute Nucleated RBC 0.000 (0.0-0.012) X10*3/uL Nucleated RBC % (auto) 0.0 (0.0-0.2) /100WBC Sodium 142 (135-145) mmol/L Potassium 3.4 (3.3-5.1) mmol/L Chloride 104 (96-108) mmol/L Carbon Dioxide 27 (22-29) mmol/L Anion Gap 14 (12-20) BUN 9 (9-16) mg/dL Creatinine 0.79 (0.5-1.4) mg/dL Estim Creat Clear Calc 74.0 Estimated GFR > 60 Random Glucose 110 (60-115) mg/dL Calcium 8.8 (8.4-10.2) mg/dL Total Bilirubin 0.2 (0.0-1.0) mg/dL Direct Bilirubin < 0.2 (0.0-0.5) mg/dL AST 7 (5-31) U/L ALT 7 (0-31) U/L Alkaline Phosphatase 94 (39-117) U/L Troponin I High Sens 8.1 (<3.5-17.0) ng/L Total Protein 5.8 L (6.5-8.0) g/dL Albumin 3.6 (3.5-5.0) g/dL Lipase 20 (8-78) U/L Independent Interpretation I performed an independent interpretation of an: EKG, Plain X-Ray and CT Scan Radiology Impression Discussion of test interpretation with radiology: I have reviewed the radiologist's reading. External Record Review External record reviewed: Inpatient record Chronic Conditions COPD Critical Care Time Critical Care Time Critical Care Time: Yes Total Critical Care Time: 40 Attestation: I have personally provided 40 minutes of critical care time exclusive of time spent on separately billable procedures. Time includes review of lab data, radiology results, discussion with consultants, and monitoring for potential decompensation. Interventions were performed as documented above Discharge Plan Discharge Clinical Impression: COPD (chronic obstructive pulmonary disease) Prescriptions: No Action (DME) lancets [FreeStyle Lancets] 28 gauge misc See Rx Instructions .ROUTE .MEDSUPPLY Qty: 100 1RF Rx Instructions: Use to check blood sugar daily or if symptomatic hypo/hypergylcemia dicyclomine 10 mg capsule 20 mg PO QID PRN (Reason: for cramps) Qty: 720 1RF furosemide 20 mg tablet 20 mg PO BID Qty: 180 2RF (DME) 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 meter [FreeStyle Lite Meter] Kit See Rx Instructions .ROUTE .MEDSUPPLY Qty: 1 0RF Rx Instructions: Use to check blood sugar daily or if symptomatic for hypo/hyperglycemia gabapentin 800 mg tablet 800 mg PO QID 30 Days Qty: 120 2RF glipizide 5 mg tablet 5 mg PO DAILY 30 Days Qty: 30 4RF tizanidine 4 mg tablet 4 mg PO Q8H PRN (Reason: muscle spasm) 30 Days Qty: 90 0RF (DME) FreeStyle Lite Strips Strip See Rx Instructions .ROUTE .MEDSUPPLY Qty: 100 1RF Rx Instructions: Use to check blood sugar daily or if symptomatic hypo/hypergylcemia lubiprostone [Amitiza] 8 mcg capsule 8 mcg PO BID Qty: 60 3RF losartan 25 mg tablet 25 mg PO DAILY Qty: 30 0RF Rx Instructions: Future refills pending upcoming appt ibuprofen 800 mg tablet 800 mg PO BID PRN (Reason: pain) Qty: 60 0RF Rx Instructions: Future refills pending upcoming appt prednisone 20 mg tablet See Rx Instructions PO DAILY 10 Days Qty: 15 0RF Rx Instructions: PO daily; Take 2 tabs daily x 5 days, then 1 tablet daily x 5 days sulfamethoxazole-trimethoprim [Bactrim DS] 800-160 mg tablet 1 tab PO BID 10 Days Qty: 20 0RF Trulicity 0.75 mg/0.5 mL pen injector 0.75 mg subcut MO@1000 Qty: 2 0RF acetaminophen 650 mg tablet extended release 650 mg PO Q12H PRN (Reason: pain) 30 Days Qty: 60 0RF famotidine [Zantac-360 (famotidine)] 10 mg tablet 10 mg PO BEDTIME Qty: 90 0RF aspirin 81 mg tablet,delayed release (DR/EC) 81 mg PO DAILY 90 Days Qty: 90 1RF albuterol sulfate [ProAir HFA] 90 mcg/actuation HFA aerosol inhaler 2 puff inhalation Q6H PRN (Reason: shortness of breath or wheezing) 30 Days Qty: 8.5 4RF Rx Instructions: proair lorazepam [Ativan] 1 mg tablet 1 mg PO DAILY PRN (Reason: anxiety) Qty: 10 0RF lorazepam [Ativan] 0.5 mg tablet 0.5 mg PO BID PRN (Reason: anxiety) Qty: 6 0RF ipratropium-albuterol 0.5 mg-3 mg(2.5 mg base)/3 mL solution for nebulization 3 ml inhalation BID PRN (Reason: Wheezing) hydroxyzine HCl 25 mg tablet 25 mg PO TID PRN (Reason: anxiety) Qty: 5 0RF Stiolto Respimat 2.5-2.5 mcg/actuation mist 2 puff inhalation DAILY 30 Days Qty: 4 6RF theophylline 400 mg tablet extended release 24 hr 400 mg PO BID 30 Days Qty: 60 6RF ipratropium bromide 0.02 % solution 2.5 ml inhalation Q6H PRN (Reason: shortness of breath or wheezing) 30 Days Qty: 225 6RF
[2022-11-05] MEDS: Albuterol Sulfate (0.083%) 2.5 MG/3 ML VIAL.NEB 5 MG INHALE (06:00)
[2022-11-05] MEDS: Albuterol/Iprat 2.5/0.5MG 3 ML AMPUL.NEB INHALE ×3 (06:01→18:51)
[2022-11-05 06:14] LABS: Alanine Aminotransferase 7 U/L (0-31); Albumin Level 3.6 g/dL (3.5-5.0); Alkaline Phosphatase 94 U/L (39-117); Aspartate Amino Transferase 7 U/L (5-31); Bilirubin Direct < 0.2 mg/dL (0.0-0.5); Bilirubin Total 0.2 mg/dL (0.0-1.0); Lipase 20 U/L (8-78); Total Protein 5.8 g/dL (6.5-8.0)
[2022-11-05] MEDS: iohexoL 350 MG/ML 100 ML INFUS..BTL 85 ML IV (06:17)
[2022-11-05] MEDS: methylPREDNISolone Sod Succ 125 MG/2 ML VIAL IVPUSH (06:27)
[2022-11-05 07:17] LABS: Influenza A PCR NEGATIVE (Negative); Influenza B PCR NEGATIVE (Negative); Resp Syncy Virus RNA Qual PCR NEGATIVE (Negative); SARS COV2 PCR INHOUSE NEGATIVE (Negative)
--- NOTE | 2022-11-05 07:51 | PC.NURSE ---
pt reports needing to use cpap at night but never does. o2 sat 85% while sleeping. placed on 4l nc and would remain around 90%. easily woken with verbal stimuli and sats are 98% on no o2.
--- NOTE | 2022-11-05 08:46 | PM.IMHP ---
History of Present Illness Date of Service: 11/05/22 Chief Complaint: shortness of breath 52 year old female with PMH COPD non compliant with home O2, DM, obesity, GERD, HTN, active smoker coming from home with shortness of breath. She woke up around 3 am with difficulty breathing, use her usual inhalers without relief and so called EMS. Has dry cough, no fever or chills. Unfortunately she is active smoker. CXR no PNA, WBC normal, negative covid. Treated in ED with bronchodilators and steroid and feels better. Review of Systems Review of Systems: Gen: no fever Resp: no sob, no cough CV: no chest, no WANG, no leg edema GI: No n/v, no abd pain Neuro: No confusion PMFSH Medical History Acute and chronic respiratory failure with hypercapnia Acute and chronic respiratory failure, unspecified whether with hypoxia or hypercapnia Acute and chronic respiratory failure, unspecified whether with hypoxia or hypercapnia Asthma Bustos's esophagus Carpal tunnel syndrome of right wrist Chest discomfort Chronic idiopathic constipation Chronic renal failure, stage 2 (mild) Cocaine abuse COPD (chronic obstructive pulmonary disease) COPD exacerbation Crack cocaine use Depression Diabetes mellitus Encounter for preoperative pulmonary examination Gastroparesis GERD (gastroesophageal reflux disease) Hernia High triglycerides HTN (hypertension) Knee pain, bilateral Nausea & vomiting Obesity (BMI 30-39.9) Respiratory failure Smoker Family History Father Heart disease HENRY (obstructive sleep apnea) Family history of breast cancer Mother Asthma Emphysema, unspecified Bronchitis Smoker Alcoholism Bone marrow disease Maternal Grandmother Diabetes Surgical History History of carpal tunnel release History of esophagogastroduodenoscopy (EGD) History of open reduction and internal fixation (ORIF) procedure History of pubovaginal sling History of umbilical hernia repair Hx of section Hx of cholecystectomy Hx of tubal ligation Social History Household Members: Family Housing: House Are you a primary dialysis patient care technician to a significant other at home: No Do you presently have visiting nurse or other home services: Yes ([employer] everyday) Unable to assess alcohol history related to: Unknown Alcohol intake: former Patient Tobacco Use Status: Current everyday Tobacco user Tobacco use type: Cigarette Cigarette Packs Per Day: 1 Cigarettes Per Day: 20.0 Years Smoked: 35 Smoked in Last 30 Days: Yes Patient Interested in Nicotine Replacement: Yes Second Hand Smoke Exposure: No Use of substances other than those prescribed or required for medical reasons: Yes Substance Use Type: Crack/Cocaine Substance Use Frequency: Occasionally Last Used Substance: Days (ago) Currently Displaying Signs/Symptoms of Drug Intoxication Withdrawal: No Any prior treatment program specific to substance use: Yes Have you been hit, kicked, punched, or otherwise hurt by someone within the past year? If so, by whom?: No Do you feel safe in your current relationship?: No Current Relationship Is there a partner from a previous relationship who is making you feel unsafe now?: No Are you made to feel afraid or neglected: No Advance Directives: No Advance Directives Information Provided: No Advance Directives Date on File: 04/15/20 Do you have thoughts of harming others: None Do you have a plan to hurt others: No Plan Recently lost weight without trying: Yes How much weight loss: 24-33 pounds Eating poorly because of decreased appetite: Yes Nutrition screen score: 6 Nutrition Risks: No Nutritional Risk Patient : No : No Poor oral hygiene: No service: No Current occupational status: disabled 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 Meds Allergies Allergy/AdvReac Type Severity Reaction Status Date / Time doxycycline Allergy Severe Swelling Verified 11/05/22 04:26 varenicline [From CHANTIX] Allergy Severe ANAPHYLAXIS Verified 11/05/22 04:26 barium sulfate Allergy Intermediate angioedema Verified 11/05/22 04:26 azithromycin Allergy Mild Rash Verified 11/05/22 04:26 cetirizine Allergy Mild Rash Verified 11/05/22 04:26 famotidine Allergy Mild Rash Verified 11/05/22 04:26 linaclotide [Linzess] Allergy Mild Rash Verified 11/05/22 04:26 Active Medications: Current Medications Pharmacy Consult (Consult Rx Perform Med Rec) 1 each MISCELLANE ONCE PRN PRN Reason: Consult order Home Medications Medication Instructions Recorded Confirmed Last Taken Type furosemide 20 mg tablet 20 mg PO DAILY 11/05/22 11/05/22 11/04/22 History Physical Exam Vital Signs and Narrative: Vital Signs: Last Vital Signs Temp 98.2 F 11/05/22 04:26 Pulse 88 11/05/22 07:45 Resp 16 11/05/22 07:45 BP 133/82 11/05/22 07:45 Pulse Ox 91 L 11/05/22 07:45 O2 Del Method Nasal Cannula 11/05/22 07:45 O2 Flow Rate 4 11/05/22 07:45 BMI result Body Mass Index 35.3 Constitutional: Alert, in no distress, overweight, no accessory muscle use Mental Status: Oriented to person, place and time. Eyes: Pupils are equal, round and reactive to light.Trachea midline. Respiratory: Clear to auscultation. No wheezing, rales or rhonchi., good air movement Cardiovascular: S1 S2 regular. No murmurs, rubs or gallops. Gastrointestinal: Abdomen soft, non-tender, non-distended. Normal bowel sounds.? Neurologic: Cranial nerves II-XII grossly intact. No focal neurological deficits. Moves all extremities spontaneously.? Skin: No rashes or lesions.? Musculoskeletal: No cyanosis or clubbing. Psychiatric: Normal mood and affect? Results Labs 11/05/22 04:19 11/05/22 04:19 Labs: Laboratory Results - last 24 hr 11/05/22 11/05/22 11/05/22 04:19 04:19 04:19 MCV 80.9 MCH 25.4 L MCHC 31.4 RDW 16.7 H Plt Count 410 H MPV 8.4 L Immature Gran % (Auto) 0.2 Neut % (Auto) 69.1 Lymph % (Auto) 22.9 [place] % (Auto) 6.5 Eos % (Auto) 1.0 Baso % (Auto) 0.3 Lymph # (Auto) 2.8 [place] # (Auto) 0.8 Eos # (Auto) 0.1 Baso # (Auto) 0.0 Abs Immat Gran (auto) 0.03 Absolute Neuts (auto) 8.5 H Absolute Nucleated RBC 0.000 Nucleated RBC % (auto) 0.0 Anion Gap 14 Estim Creat Clear Calc 74.0 Estimated GFR > 60 Random Glucose 110 Calcium 8.8 Total Bilirubin 0.2 Direct Bilirubin < 0.2 AST 7 ALT 7 Alkaline Phosphatase 94 Troponin I High Sens 8.1 Total Protein 5.8 L Albumin 3.6 Lipase 20 Influenza Type A (PCR) Influenza Type B (PCR) RSV RNA Qual (PCR) SARS-CoV-2 RNA (RT-PCR) 05/08/23 06:31 MCV MCH MCHC RDW Plt Count MPV Immature Gran % (Auto) Neut % (Auto) Lymph % (Auto) [place] % (Auto) Eos % (Auto) Baso % (Auto) Lymph # (Auto) [place] # (Auto) Eos # (Auto) Baso # (Auto) Abs Immat Gran (auto) Absolute Neuts (auto) Absolute Nucleated RBC Nucleated RBC % (auto) Anion Gap Estim Creat Clear Calc Estimated GFR Random Glucose Calcium Total Bilirubin Direct Bilirubin AST ALT Alkaline Phosphatase Troponin I High Sens Total Protein Albumin Lipase Influenza Type A (PCR) NEGATIVE Influenza Type B (PCR) NEGATIVE RSV RNA Qual (PCR) NEGATIVE SARS-CoV-2 RNA (RT-PCR) NEGATIVE Imaging Radiologist's Impressions: Impressions Chest X-Ray 11/05/22 04:37 IMPRESSION: No acute cardiopulmonary findings. Abdomen/Pelvis CT 11/05/22 06:15 IMPRESSION: 1. No acute abnormality is identified to explain patient's symptoms. No CT evidence of acute pancreatitis. 2. Status post cholecystectomy. No intrahepatic or extrahepatic biliary ductal dilatation. No evidence of choledocholithiasis. 3. Bilateral renal focal areas of cortical scarring and thinning. A 0.3 cm calculus in the upper pole of the left kidney and 0.2 cm calculus versus vascular calcification in the lower pole of the right kidney. No evidence of hydroureteronephrosis or perinephric stranding. A 0.8 cm low-attenuation in the lower pole of the right kidney is too small to characterize accurately, however, statistically likely represents a cyst. 4. Left adrenal nodule measuring 1.4 x 1.4 cm, mildly increased in size compared to previous CT scan of 07/06/2015 and have represented an adrenal adenoma on prior noncontrast CT scan. No further imaging follow-up of this finding is warranted. 5. Colonic diverticulosis without acute diverticulitis. Fleischner guidelines were followed. Assessment and Plan (1) Acute exacerbation of chronic obstructive pulmonary disease: Status: Acute (2) Respiratory failure: Qualifiers: Chronicity: acute on chronic Respiratory failure complication: hypoxia Qualified Code(s): J96.21 - Acute and chronic respiratory failure with hypoxia Status: Acute Plan 51F PMH COPD/asthma, DM, obesity, GERD, HTN, presented with sob Acute on chronic hypoxic respiratory failure Acute exacerbation of COPD and severe persistent asthma with exacerbation -treated with bronchodilator schedule and p.r.n.. -IV steroid epigastric pain--nl lipase, CT unremarkable, treat symptomaticall, PPI ?obesity ?weight loss recommended ?diabetes ?basal bolus insulin, monitor POC ?hypertension, continue home meds Left adrenal nodule measuring 1.4 x 1.4 cm, mildly increased in size compared to previous CT scan of 07/06/2015 and have represented an adrenal adenoma on prior noncontrast CT scan. No further imaging follow-up of this finding is warranted. ?DVT prophylaxis with Lovenox ?full code ?patient with significant hypoxia leading to cyanosis,? and encephalopathy.? Patient high risk due to obesity, diabetes, hypertension, therefore, expected require at least 2 midnights in the hospital. Time Spent With Patient Time: Total time managing care of this patient today ____ minutes. Quality Stroke Does the patient have a stroke diagnosis?: No VTE Prior VTE?: No VTE Risk Level:: Medical - moderate - high VTE Device Contraindication: Treatment Not Indicated VTE Drug Contraindication: N/A - Med Ordered
[2022-11-05] MEDS: methylPREDNISolone Sod Succ 40 MG/ML VIAL IVPUSH ×2 (09:24→17:47)
[2022-11-05] MEDS: Enoxaparin Sodium 40 MG/0.4 ML SYRINGE SUBCUT (09:24)
--- NOTE | 2022-11-05 09:25 | PHA.MEDREC ---
Pharmacy Consult ? Medication Reconciliation Pharmacy has completed the medication reconciliation. Pt was very sleepy and I had to repeat a lot of questions. I needed to read med claim history and she confirmed meds. Patient was asked 3 times if she's on lorazepam since she filled it recently and she says she doesn't take any of it.
[2022-11-05 17:41] LABS: Glucose, Whole Blood 239 mg/dL (60-115)
[2022-11-05] MEDS: 0.9 % Sodium Chloride Flush 3 ML SYRINGE IVFLUSH ×2 (17:47→21:05)
[2022-11-05 20:42] LABS: Glucose, Whole Blood 210 mg/dL (60-115)
[2022-11-05] MEDS: Gabapentin 400 MG CAPSULE 800 MG PO (21:01)
[2022-11-05] MEDS: Famotidine 20 MG TABLET 10 MG PO (21:02)
[2022-11-05] MEDS: Theophylline Anhydrous ER 400 MG TAB.ER.24H PO (21:02)
[2022-11-05] MEDS: Insulin Lispro 100 UNIT/ML 3 ML VIAL SUBCUT (21:06)
[2022-11-06] MEDS: methylPREDNISolone Sod Succ 40 MG/ML VIAL IVPUSH ×2 (00:35→08:43)
[2022-11-06 04:00] VITALS: BP 132/67; PULSE 67; RESP 18; TEMP 35.9; O2SAT 96
[2022-11-06] MEDS: Benzonatate 100 MG CAPSULE 200 MG PO (04:03)
[2022-11-06 07:49] VITALS: PULSE 86; RESP 16; O2SAT 96
[2022-11-06] MEDS: Albuterol/Iprat 2.5/0.5MG 3 ML AMPUL.NEB INHALE ×2 (07:49→11:58)
[2022-11-06 08:00] VITALS: BP 141/67; PULSE 75; RESP 20; TEMP 36.4; O2SAT 94
[2022-11-06 08:01] LABS: Glucose, Whole Blood 177 mg/dL (60-115)
[2022-11-06] MEDS: Insulin Lispro 100 UNIT/ML 3 ML VIAL SUBCUT (08:42)
[2022-11-06] MEDS: Gabapentin 400 MG CAPSULE 800 MG PO (08:43)
[2022-11-06] MEDS: Theophylline Anhydrous ER 400 MG TAB.ER.24H PO (08:43)
[2022-11-06] MEDS: 0.9 % Sodium Chloride Flush 3 ML SYRINGE IVFLUSH (08:43)
[2022-11-06] MEDS: Enoxaparin Sodium 40 MG/0.4 ML SYRINGE SUBCUT (08:43)
[2022-11-06] MEDS: Furosemide 20 MG TABLET PO (08:44)
[2022-11-06] MEDS: glipiZIDE 5 MG TABLET PO (08:44)
[2022-11-06] MEDS: guaiFENesin 100 MG/5 ML LIQUID PO (08:46)
--- NOTE | 2022-11-06 09:40 | PM.DS ---
DS: Providers Provider Date of Service: 11/06/22 Date of admission: 11/05/22 08:42 Primary care physician: STEPHEN LazcanoPDanita DS: Diagnosis Discharge Diagnosis (1) Acute exacerbation of chronic obstructive pulmonary disease: Status: Resolved (2) Respiratory failure: Status: Resolved DS: Summary Hospital Course Hospital Course: Chief Complaint: shortness of breath 52 year old female with PMH COPD non compliant with home O2, DM, obesity, GERD, HTN, active smoker? coming from home with shortness of breath.? She woke up around 3 am with difficulty breathing, use her usual inhalers without relief and so called EMS. Has dry cough, no fever or chills.? Unfortunately she is active smoker. CXR no PNA, WBC normal, negative covid. Treated in ED with bronchodilators and steroid and feels better. Hospital course: Patient presented with shortness of breath that was rather acute on onset. She has history of COPD and actively smoke. Patient was found hypoxic upon presentation rapidly improved upon treatment with bronchodilators and IV steroid was admitted with anticipation of stain in the hospital for several days bed rather made a rapid recovery with the treatment with IV steroid and bronchodilators overall is feeling much better her lung exam is clear and her hypoxia has resolved and she feels comfortable going home at this time smoking cessation has been advised. And she will be prescribed prednisone 40 mg daily for another 4 days for total of 5 days of steroid. She is to follow up with her primary care physician upon discharge. Final diagnosis Acute hypoxic respiratory failure due to COPD Acute exacerbation of COPD Time Spent with Patient Time attestation: Total time managing care of this patient today ____ minutes. Discharge coordination time: Greater than 30 minutes Quality: Safe Use of Opioids Does Pt have an Active Cancer Diagnosis on the Problem List?: No Quality: Stroke Does the patient have a stroke diagnosis?: No Physical Exam Vital Signs: Vital Signs: Last Vital Signs Temp 97.5 F 11/06/22 08:00 Pulse 75 11/06/22 08:00 Resp 20 11/06/22 08:00 BP 141/67 H 11/06/22 08:00 Pulse Ox 94 11/06/22 08:00 O2 Del Method Room Air 11/06/22 08:00 O2 Flow Rate 2 11/05/22 16:26 BMI result Body Mass Index 35.3 DS: Data Data Completed and Pending Completed studies during hospitalization [Text1]: Procedures Assistance with Respiratory Ventilation, Less than 24 Consecutive Hours, Continuous Positive Airway Pressure (04/27/22) Insertion of Endotracheal Airway into Trachea, Via Natural or Artificial Opening (11/03/20) Insertion of Infusion Device into Superior Vena Cava, Percutaneous Approach (11/03/20) Respiratory Ventilation, Less than 24 Consecutive Hours (11/03/20) Labs on day of discharge: Laboratory Results - last 24 hr 11/05/22 11/05/22 11/06/22 17:38 20:20 07:48 POC Glucose 239 H 210 H 177 H Discharge Plan Discharge Anticipated Discharge Date/Time: 11/06/22 09:30 Patient Disposition: Home, Self-Care Discharge Diagnosis: Acute hypoxic respiratory failure due to COPD exacerbation. Referrals: Joe Hale FNP- [Primary Care Provider] - 1 Week Discharge Medications: New prednisone 20 mg tablet 40 mg PO DAILY Qty: 8 0RF guaifenesin 100 mg/5 mL Liquid 5 ml PO Q4H PRN (Reason: Cough) Qty: 200 0RF Continued (DME) lancets [FreeStyle Lancets] 28 gauge misc See Rx Instructions .ROUTE .MEDSUPPLY Qty: 100 1RF Rx Instructions: Use to check blood sugar daily or if symptomatic hypo/hypergylcemia (DME) 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 meter [FreeStyle Lite Meter] Kit See Rx Instructions .ROUTE .MEDSUPPLY Qty: 1 0RF Rx Instructions: Use to check blood sugar daily or if symptomatic for hypo/hyperglycemia glipizide 5 mg tablet 5 mg PO DAILY 30 Days Qty: 30 4RF (DME) FreeStyle Lite Strips Strip See Rx Instructions .ROUTE .MEDSUPPLY Qty: 100 1RF Rx Instructions: Use to check blood sugar daily or if symptomatic hypo/hypergylcemia famotidine [Zantac-360 (famotidine)] 10 mg tablet 10 mg PO BEDTIME Qty: 90 0RF aspirin 81 mg tablet,delayed release (DR/EC) 81 mg PO DAILY 90 Days Qty: 90 1RF furosemide 20 mg tablet 20 mg PO DAILY Stiolto Respimat 2.5-2.5 mcg/actuation mist 2 puff inhalation DAILY 30 Days Qty: 4 6RF ipratropium bromide 0.02 % solution 2.5 ml inhalation Q6H PRN (Reason: shortness of breath or wheezing) 30 Days Qty: 225 6RF Discontinued gabapentin 800 mg tablet 800 mg PO QID 30 Days Qty: 120 2RF No Action losartan 25 mg tablet 25 mg PO DAILY Qty: 90 1RF gabapentin 800 mg tablet 800 mg PO QID 30 Days Qty: 120 2RF acetaminophen 650 mg tablet extended release 650 mg PO Q12H PRN (Reason: pain) 30 Days Qty: 60 0RF ibuprofen 800 mg tablet 800 mg PO BID PRN (Reason: pain) Qty: 60 0RF tizanidine 4 mg tablet 4 mg PO Q8H PRN (Reason: muscle spasm) 30 Days Qty: 90 0RF Trulicity 0.75 mg/0.5 mL pen injector 0.75 mg subcut MO@1000 Qty: 2 0RF sertraline 50 mg tablet 50 mg PO DAILY Qty: 90 0RF lorazepam 0.5 mg tablet 0.5 mg PO BID PRN (Reason: Anxiety) ipratropium-albuterol 0.5 mg-3 mg(2.5 mg base)/3 mL solution for nebulization 3 ml inhalation BID theophylline 400 mg tablet extended release 24 hr 400 mg PO BID 90 Days Qty: 180 4RF albuterol sulfate 90 mcg/actuation HFA aerosol inhaler 2 puff inhalation Q4-6H PRN (Reason: shortness of breath or wheezing) 90 Days Qty: 3 3RF Discharge Orders: Discharge Order (Routine); Ordered 11/06/22 Ordered By: Oliverio Liriano Activity on Discharge: As tolerated Stand Alone Forms: Patient Portal Discharge page Care Plan Goals: Full recovery from COPD and hypoxia Health Concerns: COPD Chronic tobacco use Plan of Treatment: Take prednisone as directed and follow up with her primary care doctor within a week. Use inhalers as needed. take robitussin for cough Stop smoke gabapentin is renew for 7 days only Assessment: as above Discharge Date/Time: 11/06/22 12:44
--- NOTE | 2022-11-06 10:56 | MHC.CM.PN ---
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
[2022-11-06 11:22] LABS: Glucose, Whole Blood 50 mg/dL (60-115)
[2022-11-06 11:38] LABS: Glucose, Whole Blood 56 mg/dL (60-115)
[2022-11-06 11:58] VITALS: PULSE 75; RESP 16; O2SAT 94
[2022-11-06 12:17] LABS: Glucose, Whole Blood 100 mg/dL (60-115)
== END 2022-11-06 12:44 | disposition home or self-care (01) | DRG 140 ==
LOC: HO.ED 05:04 → HO.EDOVER 10:24 → HO.S3 15:50
PROVIDERS: Admitting Provider Internal Medicine; Emergency Provider Emergency Medicine Emergency Medical Services; PCP Nurse Practitioner Family; Visit Provider Internal Medicine
DX: J44.1 Chronic obstructive pulmonary disease with (acute) exacerbation (principal); J96.21 Acute and chronic respiratory failure with hypoxia; Z99.81 Dependence on supplemental oxygen; J45.51 Severe persistent asthma with (acute) exacerbation; F17.210 Nicotine dependence, cigarettes, uncomplicated; E66.9 Obesity, unspecified; Z68.35 Body mass index [BMI] 35.0-35.9, adult; Z20.822 Contact with and (suspected) exposure to COVID-19; Z91.199 Patient's noncompliance with other medical treatment and regimen due to unspecified reason; Z71.6 Tobacco abuse counseling; Z79.84 Long term (current) use of oral hypoglycemic drugs; Z79.899 Other long term (current) drug therapy
CPT/HCPCS: 0241U; 36415; 71045; 74177; 80048; 80076; 82947; 83690; 84484; 85025; 93005; 94640; 99285; J1650; J2920; J2930; Q9967

== ENCOUNTER 2022-11-12 22:07 | Emergency (ER) | payer OTHER, SELFPAY ==
--- NOTE | ~2022-11-12 | XR_ITS ---
EXAMINATION: XR CHEST CLINICAL INFORMATION: SOB COMPARISON: Chest 11/05/2022. TECHNIQUE: Frontal view of the chest was obtained. FINDINGS: No significant abnormality is noted involving the heart, lungs, mediastinum, bony thorax or soft tissues. XR/XR chest 1V IMPRESSION: Unremarkable chest examination.
[2022-11-12 22:14] VITALS: BP 120/60; BP 132/96; PULSE 82; PULSE 96; RESP 22; TEMP 36.7; O2SAT 95; BMI 33.3
--- NOTE | 2022-11-12 22:15 | ED_ITS ---
HPI - SOB/Dyspnea General Chief Complaint: Dyspnea Stated Complaint: DIFF BREATHING Time Seen by Provider: 11/12/22 22:15 Source: patient Mode of arrival: EMS Limitations: no limitations History of Present Illness HPI Narrative: Patient 52 years old with active 40+ pack-year smoking history with underlying severe HENRY and COPD on multiple medication has not received her CPAP machine yet complaining of increased shortness of breath started earlier today patient was just discharged from the hospital last week for similar presentation still smokes half pack a day. No fever no chills no chest pain or palpitation on EMS arrival patient is saturating 95% received DuoNeb treatment by EMS Related Data Home Medications Medication Instructions Recorded Confirmed furosemide 20 mg tablet 20 mg PO DAILY 11/05/22 11/05/22 ipratropium 0.5 mg-albuterol 3 mg ml inhalation BID 11/08/22 (2.5 mg base)/3 mL nebulization soln lorazepam 0.5 mg tablet 0.5 mg PO BID PRN 11/08/22 losartan 25 mg tablet 25 mg PO DAILY 11/08/22 Previous Rx's Medication Instructions Recorded lancets 28 gauge (FreeStyle #100 ea 01/20/21 Lancets) 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 meter (FreeStyle #1 ea 03/01/22 Lite Meter kit) theophylline 400 mg 400 mg PO BID 30 days #60 tabs 04/06/22 tablet,extended release 24 hr tiotropium 2.5 mcg-olodaterol 2.5 2 puff inhalation DAILY 30 days #4 05/11/22 mcg/actuation mist for inhalation grams (Stiolto Respimat) glipizide 5 mg tablet 5 mg PO DAILY 30 days #30 tabs 08/30/22 blood sugar diagnostic (FreeStyle #100 ea 09/16/22 Lite Strips) ipratropium bromide 0.02 % 2.5 ml inhalation Q6H PRN 09/27/22 solution for inhalation shortness of breath or wheezing 30 days #225 mL dulaglutide 0.75 mg/0.5 mL 0.75 mg (0.5 mL) subcut MO@1000 #2 10/09/22 subcutaneous pen injector mL (Trulicity) famotidine 10 mg tablet 10 mg PO BEDTIME #90 tabs 10/12/22 (Zantac-360 (famotidine)) albuterol sulfate 90 mcg/actuation 2 puff inhalation Q6H PRN 10/16/22 aerosol inhaler (ProAir HFA) shortness of breath or wheezing 30 days #8.5 grams aspirin 81 mg tablet,delayed 81 mg PO DAILY 90 days #90 tabs 10/16/22 release gabapentin 800 mg tablet 800 mg PO QID 30 days #21 tabs 11/06/22 guaifenesin 100 mg/5 mL oral liquid 5 ml PO Q4H PRN Cough #200 mL 11/06/22 prednisone 20 mg tablet 40 mg PO DAILY #8 tabs 11/06/22 sertraline 50 mg tablet 50 mg PO DAILY #90 tabs 11/08/22 tizanidine 4 mg tablet 4 mg PO Q8H PRN muscle spasm 30 11/08/22 days #90 tabs acetaminophen 650 mg 650 mg PO Q12H PRN pain 30 days 11/12/22 tablet,extended release #60 tabs ibuprofen 800 mg tablet 800 mg PO BID PRN pain #60 tabs 11/12/22 albuterol sulfate 90 mcg/actuation 2 puff inhalation Q4-6H PRN 11/13/22 aerosol inhaler (ProAir HFA) shortness of breath or wheezing #8.5 grams prednisone 20 mg tablet 40 mg PO DAILY #10 tabs 11/13/22 Allergies Allergy/AdvReac Type Severity Reaction Status Date / Time doxycycline Allergy Severe Swelling Verified 11/05/22 04:26 varenicline [From CHANTIX] Allergy Severe ANAPHYLAXIS Verified 11/05/22 04:26 barium sulfate Allergy Intermediate angioedema Verified 11/05/22 04:26 azithromycin Allergy Mild Rash Verified 11/05/22 04:26 cetirizine Allergy Mild Rash Verified 11/05/22 04:26 famotidine Allergy Mild Rash Verified 11/05/22 04:26 linaclotide [Linzess] Allergy Mild Rash Verified 11/05/22 04:26 Review of Systems Review of Systems: Yes all other systems are reviewed and are negative PMFSH Past Medical History Medical History Acute and chronic respiratory failure with hypercapnia Acute and chronic respiratory failure, unspecified whether with hypoxia or hypercapnia Acute and chronic respiratory failure, unspecified whether with hypoxia or hypercapnia Asthma Bustos's esophagus Carpal tunnel syndrome of right wrist Chest discomfort Chronic idiopathic constipation Chronic renal failure, stage 2 (mild) Cocaine abuse COPD (chronic obstructive pulmonary disease) COPD exacerbation Crack cocaine use Depression Diabetes mellitus Encounter for preoperative pulmonary examination Gastroparesis GERD (gastroesophageal reflux disease) Hernia High triglycerides HTN (hypertension) Knee pain, bilateral Nausea & vomiting Obesity (BMI 30-39.9) Respiratory failure Smoker Surgical History History of carpal tunnel release History of esophagogastroduodenoscopy (EGD) History of open reduction and internal fixation (ORIF) procedure History of pubovaginal sling History of umbilical hernia repair Hx of section Hx of cholecystectomy Hx of tubal ligation Family History Family History Father Heart disease HENRY (obstructive sleep apnea) Family history of breast cancer Mother Asthma Emphysema, unspecified Bronchitis Smoker Alcoholism Bone marrow disease Maternal Grandmother Diabetes Social History Social History Household Members: Family Housing: House Are you a primary care program resident to a significant other at home: No Do you presently have visiting nurse or other home services: Yes (ETHICS MANAGER everyday) Unable to assess alcohol history related to: Unknown Alcohol intake: never Patient Tobacco Use Status: Current everyday Tobacco user Tobacco use type: Cigarette Cigarettes Per Day: 10 Years Smoked: 35 Smoked in Last 30 Days: Yes Second Hand Smoke Exposure: No Use of substances other than those prescribed or required for medical reasons: Yes Substance Use Type: Crack/Cocaine Substance Use Frequency: Occasionally Advance Directives: No Advance Directives Information Provided: No Advance Directives Date on File: 04/15/20 service: No Current occupational status: disabled 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 Oriented X3. In moderate respiratory distress. Eyes: PERRLA, No Nystagmus ENT: Pharynx normal. Oral Mucosa moist Neck: Normal inspection. Neck supple. CVS: Normal heart rate and rhythm. Pulses normal. Respiratory: Mod respiratory distress. Equal air entry bilateral, bilateral wheezes Abdomen: Soft and nontender. Bowel sounds are present, no mass palpable, no CVA tenderness Skin: Skin warm and dry. Normal skin color. Normal skin turgor. Extremities: No lower extremity edema. No calf tenderness Neuro: Oriented X 3. No motor deficit. No sensory deficit.No cerebellar signs , cranial nerves II-XII intact Medications Administered Discontinued Medications Generic Name Dose Route Start Last Admin Trade Name Brian PRN Reason Stop Dose Admin Albuterol Sulfate 7.5 mg 11/12/22 22:21 11/12/22 22:38 Albuterol Sulfate (0.083%) 2.5 Mg/3 Ml Vial.Neb INHALE 11/12/22 22:22 7.5 mg ONCE ONE Administration Albuterol Sulfate 5 mg 11/13/22 00:39 11/13/22 00:46 Albuterol Sulfate (0.083%) 2.5 Mg/3 Ml Vial.Neb INHALE 11/13/22 00:40 5 mg ONCE ONE Administration Albuterol Sulfate 2 puff 11/13/22 03:18 11/13/22 03:21 Albuterol Sulfate 90 Mcg 8 Gm Inhaler INHALE 11/13/22 03:19 2 puff ONCE ONE Administration Guaifenesin/Codeine Phosphate 10 ml 11/13/22 00:39 11/13/22 01:50 Guaifen/Codeine Sf 200/20/10ml 10 Ml Liquid PO 11/13/22 00:40 10 ml ONCE ONE Administration Magnesium Sulfate 2 gm in 50 mls @ 100 mls/hr 11/12/22 22:21 11/12/22 23:00 Magnesium Sulfate/H2o IV 11/12/22 22:50 Infused ONCE ONE Infusion Methylprednisolone Sodium Succinate 125 mg 11/12/22 22:21 11/12/22 22:28 Methylprednisolone Sod Succ 125 Mg/2 Ml Vial IVPUSH 11/12/22 22:22 125 mg ONCE ONE Administration Medical Decision Making Medical Decision Making [facility] Narrative: Patient chronic smoker with COPD with shortness of breath saturating 94% at room and ambulatory saturating 93%. Has history of sleep apnea and does not have his CPAP machine. Patient improved after steroids magnesium and nebulizing treatment discharge patient home to follow up with lay up operator Lab Data [facility] Lab Attestation statement: I reviewed the patient's lab results. 11/12/22 22:33 11/12/22 22:33 Labs: Lab Results 11/12/22 11/12/22 Range/Units 22:33 22:33 WBC 17.6 H (4.8-10.8) X10*3/uL RBC 5.36 (4.20-5.50) X10*6/uL Hgb 13.8 (12.0-16.0) g/dl Hct 42.6 (37.0-47.0) % MCV 79.5 L (80.0-98.0) fL MCH 25.7 L (27.0-33.0) pg MCHC 32.4 (31.0-35.0) g/dl RDW 16.5 H (11.0-16.0) % Plt Count 385 (160-400) X10*3/uL MPV 9.0 L (9.4-12.3) fL Immature Gran % (Auto) 0.4 (0.0-0.4) % Neut % (Auto) 71.0 (45-73) % Lymph % (Auto) 19.4 L (20-40) % [place] % (Auto) 7.3 (2-11) % Eos % (Auto) 1.7 (0-4) % Baso % (Auto) 0.2 (0-2) % Lymph # (Auto) 3.4 (1.2-4.9) X10*3/uL [place] # (Auto) 1.3 H (0.1-1.2) X10*3/uL Eos # (Auto) 0.3 (0.0-0.4) X10*3/uL Baso # (Auto) 0.0 (0.0-0.2) X10*3/uL Abs Immat Gran (auto) 0.07 H (0.00-0.03) X10*3/uL Absolute Neuts (auto) 12.5 H (2.0-8.3) x10*3/uL Absolute Nucleated RBC 0.000 (0.0-0.012) X10*3/uL Nucleated RBC % (auto) 0.0 (0.0-0.2) /100WBC Sodium 138 (135-145) mmol/L Potassium 3.6 (3.3-5.1) mmol/L Chloride 101 (96-108) mmol/L Carbon Dioxide 28 (22-29) mmol/L Anion Gap 13 (12-20) BUN 14 (9-16) mg/dL Creatinine 0.75 (0.5-1.4) mg/dL Estim Creat Clear Calc 75.6 Estimated GFR > 60 Random Glucose 170 H (60-115) mg/dL Calcium 8.7 (8.4-10.2) mg/dL Discharge Plan Discharge Clinical Impression: COPD (chronic obstructive pulmonary disease) Patient Disposition: Home, Self-Care Instructions: COPD (Chronic Obstructive Pulmonary Disease) (ED) Additional Instructions: Stop smoking , continue nebulizing treatment at home Prednisone as prescribed Follow with your lung specialist Prescriptions: New prednisone 20 mg tablet 40 mg PO DAILY Qty: 10 0RF albuterol sulfate [ProAir HFA] 90 mcg/actuation HFA aerosol inhaler 2 puff inhalation Q4-6H PRN (Reason: shortness of breath or wheezing) Qty: 8.5 0RF No Action (DME) lancets [FreeStyle Lancets] 28 gauge misc See Rx Instructions .ROUTE .MEDSUPPLY Qty: 100 1RF Rx Instructions: Use to check blood sugar daily or if symptomatic hypo/hypergylcemia (DME) 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 meter [FreeStyle Lite Meter] Kit See Rx Instructions .ROUTE .MEDSUPPLY Qty: 1 0RF Rx Instructions: Use to check blood sugar daily or if symptomatic for hypo/hyperglycemia glipizide 5 mg tablet 5 mg PO DAILY 30 Days Qty: 30 4RF (DME) FreeStyle Lite Strips Strip See Rx Instructions .ROUTE .MEDSUPPLY Qty: 100 1RF Rx Instructions: Use to check blood sugar daily or if symptomatic hypo/hypergylcemia Trulicity 0.75 mg/0.5 mL pen injector 0.75 mg subcut MO@1000 Qty: 2 0RF famotidine [Zantac-360 (famotidine)] 10 mg tablet 10 mg PO BEDTIME Qty: 90 0RF aspirin 81 mg tablet,delayed release (DR/EC) 81 mg PO DAILY 90 Days Qty: 90 1RF albuterol sulfate [ProAir HFA] 90 mcg/actuation HFA aerosol inhaler 2 puff inhalation Q6H PRN (Reason: shortness of breath or wheezing) 30 Days Q ty: 8.5 4RF Rx Instructions: proair tizanidine 4 mg tablet 4 mg PO Q8H PRN (Reason: muscle spasm) 30 Days Qty: 90 0RF ibuprofen 800 mg tablet 800 mg PO BID PRN (Reason: pain) Qty: 60 0RF acetaminophen 650 mg tablet extended release 650 mg PO Q12H PRN (Reason: pain) 30 Days Qty: 60 0RF furosemide 20 mg tablet 20 mg PO DAILY prednisone 20 mg tablet 40 mg PO DAILY Qty: 8 0RF guaifenesin 100 mg/5 mL Liquid 5 ml PO Q4H PRN (Reason: Cough) Qty: 200 0RF gabapentin 800 mg tablet 800 mg PO QID 30 Days Qty: 21 2RF sertraline 50 mg tablet 50 mg PO DAILY Qty: 90 0RF lorazepam 0.5 mg tablet 0.5 mg PO BID PRN ipratropium-albuterol 0.5 mg-3 mg(2.5 mg base)/3 mL solution for nebulization inhalation BID losartan 25 mg tablet 25 mg PO DAILY Stiolto Respimat 2.5-2.5 mcg/actuation mist 2 puff inhalation DAILY 30 Days Qty: 4 6RF theophylline 400 mg tablet extended release 24 hr 400 mg PO BID 30 Days Qty: 60 6RF ipratropium bromide 0.02 % solution 2.5 ml inhalation Q6H PRN (Reason: shortness of breath or wheezing) 30 Days Qty: 225 6RF Interventions: ED Discharge Assessment Last Done: 11/13/22 03:18 Discharge Date/Time: 11/13/22 03:18
[2022-11-12] MEDS: methylPREDNISolone Sod Succ 125 MG/2 ML VIAL IVPUSH (22:28)
[2022-11-12] MEDS: Magnesium Sulfate/H2O 2 GM/50 ML PIGGYBACK IV (22:28)
[2022-11-12 22:37] LABS: MANUAL DIFF FLAG NO
[2022-11-12 22:38] LABS: Basophils Percent Auto 0.2 % (0-2); Eosinophils Absolute Auto 0.3 X10*3/uL (0.0-0.4); Eosinophils Percent Auto 1.7 % (0-4); Hematocrit 42.6 % (37.0-47.0); Hemoglobin 13.8 g/dl (12.0-16.0); Imm Gran Abs Auto 0.07 X10*3/uL (0.00-0.03); Imm Gran Pct Auto 0.4 % (0.0-0.4); Lymphocytes Absolute Auto 3.4 X10*3/uL (1.2-4.9); Lymphocytes Percent Auto 19.4 % (20-40); Mean Corpuscular HGB Conc 32.4 g/dl (31.0-35.0); Mean Corpuscular Hemoglobin 25.7 pg (27.0-33.0); Mean Corpuscular Volume 79.5 fL (80.0-98.0); Monocytes Absolute Auto 1.3 X10*3/uL (0.1-1.2); Monocytes Percent Auto 7.3 % (2-11); Neutrophils Absolute Auto 12.5 x10*3/uL (2.0-8.3); Platelet Count 385 X10*3/uL (160-400); Red Blood Count 5.36 X10*6/uL (4.20-5.50); Red Cell Distribution Width 16.5 % (11.0-16.0); White Blood Count 17.6 X10*3/uL (4.8-10.8)
[2022-11-12] MEDS: Albuterol Sulfate (0.083%) 2.5 MG/3 ML VIAL.NEB 7.5 MG INHALE (22:38)
[2022-11-12 22:39] VITALS: PULSE 94; RESP 16; O2SAT 94
[2022-11-12 22:56] LABS: Anion Gap 13 (12-20); Blood Urea Nitrogen 14 mg/dL (9-16); Calcium 8.7 mg/dL (8.4-10.2); Carbon Dioxide 28 mmol/L (22-29); Chloride 101 mmol/L (96-108); Creatinine Clr Calc Pharmacy 75.6; Estimated Glomerular Filt Rate > 60; Glucose Random 170 mg/dL (60-115); Potassium 3.6 mmol/L (3.3-5.1); Sodium 138 mmol/L (135-145)
--- NOTE | 2022-11-13 | PC.NURSE ---
Pt A&Ox4, speaking in small sentences, denies any pain, reports increase SOB stating yesterday with no relief of inhailer. Pt o2 97% on RA, RR 17, lung sounds slightly wheezy.
[2022-11-13 00:06] VITALS: BP 158/71; PULSE 97; RESP 17; TEMP 36.6; O2SAT 97
[2022-11-13] MEDS: Albuterol Sulfate (0.083%) 2.5 MG/3 ML VIAL.NEB 5 MG INHALE (00:46)
[2022-11-13 00:48] VITALS: PULSE 97; RESP 17; O2SAT 94
[2022-11-13] MEDS: guaiFEN/Codeine SF 200/20/10ML 10 ML LIQUID PO (01:50)
--- NOTE | 2022-11-13 02:00 | PC.NURSE ---
Pt reports effectiveness to meds given.
[2022-11-13 03:06] VITALS: BP 132/71; PULSE 94; RESP 18; TEMP 36.7; O2SAT 94
--- NOTE | 2022-11-13 03:18 | PC.NURSE ---
D/C instructions given, Pt ambulated independently with steady gait.
[2022-11-13] MEDS: Albuterol Sulfate 90 MCG 8 GM INHALER 2 PUFF INHALE (03:21)
== END 2022-11-13 03:18 | disposition home or self-care (01) ==
PROVIDERS: Emergency Provider Internal Medicine; PCP Nurse Practitioner Family
DX: J44.9 Chronic obstructive pulmonary disease, unspecified (principal); R06.02 Shortness of breath; G47.33 Obstructive sleep apnea (adult) (pediatric); F14.10 Cocaine abuse, uncomplicated; F17.210 Nicotine dependence, cigarettes, uncomplicated; Z79.899 Other long term (current) drug therapy; Z71.6 Tobacco abuse counseling
CPT/HCPCS: 36415; 71045; 80048; 85025; 94640; 96365; 96375; 99285; J2930; J3475

== ENCOUNTER 2022-11-13 21:01 | Observation (INO) | payer OTHER, SELFPAY ==
--- NOTE | 2022-11-13 | ECG_ITS ---
Test Reason : SOB Blood Pressure : / mmHG Vent. Rate : 105 BPM Atrial Rate : 105 BPM P-R Int : 126 ms QRS Dur : 070 ms QT Int : 332 ms P-R-T Axes : 050 128 077 degrees QTc Int : 438 ms Sinus tachycardia with occasional Premature ventricular complexes Low voltage QRS Left posterior fascicular block Possible Inferior infarct (cited on or before 01-OCT-2022) Abnormal ECG When compared with ECG of 05-NOV-2022 04:13, Premature ventricular complexes are now Present Premature atrial complexes are no longer Present Referred By: Generic ED Physician Electronically Signed By:Dallin Birmingham
--- NOTE | ~2022-11-13 | CT_ITS ---
EXAMINATION: CT CHEST WITHOUT CONTRAST CLINICAL INFORMATION: Shortness of breath COMPARISON: 04/27/2022 and 11/03/2020 TECHNIQUE: Multidetector volumetric CT imaging of the chest was done. Axial MIP volume rendering provided. Sagittal and coronal reformatted images were obtained. This CT examination was performed using dose optimization techniques as appropriate, variously including the following: *Automated exposure control *Adjustment of mA and/or kV according to patient size (this includes techniques or standardized protocols for targeted exams where dose is matched to indication/reason for exam; i.e. extremities or head) *Use of iterative reconstruction technique DLP: 310 mGy-cm FINDINGS: LUNGS: Mild emphysema. Diffuse mild bronchial wall thickening without bronchiectasis. No parenchymal consolidation or pneumonitis. Long-term stability of a punctate nodule in the right upper lobe. No follow-up imaging recommended per Fleischner Society guidelines. MEDIASTINUM: Normal heart size. Great vessels normal caliber. No pericardial effusion. No mediastinal, hilar or supraclavicular lymphadenopathy. CORONARY ARTERY CALCIFICATION: Present. PLEURA: There is no pleural effusion. No pleural mass or thickening. AXILLA: No lymphadenopathy. UPPER ABDOMEN: Smooth low-density thickening of the bilateral adrenal glands redemonstrated compatible with benign hyperplasia or lipid rich adenomatous change. No follow-up imaging recommended. OSSEOUS STRUCTURES: No acute or suspicious osseous abnormalities. CT/CT chest wo IV con IMPRESSION: * Mild emphysema and chronic bronchitis. * No evidence of acute pneumonitis or parenchymal consolidation. * No suspicious pulmonary nodules. Fleischner guidelines were followed.
--- NOTE | ~2022-11-13 | XR_ITS ---
EXAMINATION: XR CHEST CLINICAL INFORMATION: SOB COMPARISON: None available. TECHNIQUE: 2 views of the chest were obtained. FINDINGS: The lungs are hyperinflated but clear of acute process. Heart size and pulmonary vascularity is normal. No gross bony abnormality seen. XR/XR chest 2V IMPRESSION: Hyperinflated lungs without acute process.
[2022-11-13 21:05] VITALS: BP 104/54; BP 175/143; PULSE 110; PULSE 113; RESP 26; TEMP 36.6; O2SAT 98; O2SAT 99; BMI 33.5
[2022-11-13 21:23] LABS: MANUAL DIFF FLAG NO
[2022-11-13 21:25] LABS: Basophils Percent Auto 0.2 % (0-2); Eosinophils Absolute Auto 0.1 X10*3/uL (0.0-0.4); Eosinophils Percent Auto 0.4 % (0-4); Hematocrit 40.4 % (37.0-47.0); Imm Gran Pct Auto 0.5 % (0.0-0.4); Lymphocytes Absolute Auto 2.8 X10*3/uL (1.2-4.9); Lymphocytes Percent Auto 13.9 % (20-40); Mean Corpuscular HGB Conc 32.2 g/dl (31.0-35.0); Mean Corpuscular Hemoglobin 25.9 pg (27.0-33.0); Mean Corpuscular Volume 80.6 fL (80.0-98.0); Mean Platelet Volume 9.3 fL (9.4-12.3); Monocytes Absolute Auto 1.3 X10*3/uL (0.1-1.2); Monocytes Percent Auto 6.4 % (2-11); Neutrophils Absolute Auto 15.8 x10*3/uL (2.0-8.3); Neutrophils Percent Auto 78.6 % (45-73); Platelet Count 415 X10*3/uL (160-400); Red Blood Count 5.01 X10*6/uL (4.20-5.50); Red Cell Distribution Width 16.9 % (11.0-16.0); White Blood Count 20.1 X10*3/uL (4.8-10.8)
[2022-11-13] MEDS: Albuterol Sulfate (0.083%) 2.5 MG/3 ML VIAL.NEB 10 MG INHALE (21:46)
[2022-11-13 21:47] VITALS: PULSE 93; RESP 14; O2SAT 95
[2022-11-13] MEDS: methylPREDNISolone Sod Succ 125 MG/2 ML VIAL IVPUSH (21:58)
[2022-11-13] MEDS: Magnesium Sulfate/H2O 2 GM/50 ML PIGGYBACK IV (21:58)
--- NOTE | 2022-11-13 22:12 | ED_ITS ---
HPI - Asthma General Chief Complaint: Asthma Stated Complaint: sob Time Seen by Provider: 11/13/22 21:19 Source: patient Mode of arrival: ambulatory Limitations: no limitations History of Present Illness HPI Narrative: Patient comes to the emergency room complaining of an asthma exacerbation. Patient states that she continues feeling short of breath despite using her inhaler. Patient denies chest pain. Patient states it is worse when she walks. Denies orthopnea. Related Data Home Medications Medication Instructions Recorded Confirmed furosemide 20 mg tablet 20 mg PO DAILY 11/05/22 11/05/22 ipratropium 0.5 mg-albuterol 3 mg ml inhalation BID 11/08/22 (2.5 mg base)/3 mL nebulization soln lorazepam 0.5 mg tablet 0.5 mg PO BID PRN 11/08/22 losartan 25 mg tablet 25 mg PO DAILY 11/08/22 Previous Rx's Medication Instructions Recorded lancets 28 gauge (FreeStyle #100 ea 01/20/21 Lancets) 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 meter (FreeStyle #1 ea 03/01/22 Lite Meter kit) theophylline 400 mg 400 mg PO BID 30 days #60 tabs 04/06/22 tablet,extended release 24 hr tiotropium 2.5 mcg-olodaterol 2.5 2 puff inhalation DAILY 30 days #4 05/11/22 mcg/actuation mist for inhalation grams (Stiolto Respimat) glipizide 5 mg tablet 5 mg PO DAILY 30 days #30 tabs 08/30/22 blood sugar diagnostic (FreeStyle #100 ea 09/16/22 Lite Strips) ipratropium bromide 0.02 % 2.5 ml inhalation Q6H PRN 09/27/22 solution for inhalation shortness of breath or wheezing 30 days #225 mL dulaglutide 0.75 mg/0.5 mL 0.75 mg (0.5 mL) subcut MO@1000 #2 10/09/22 subcutaneous pen injector mL (Trulicity) famotidine 10 mg tablet 10 mg PO BEDTIME #90 tabs 10/12/22 (Zantac-360 (famotidine)) albuterol sulfate 90 mcg/actuation 2 puff inhalation Q6H PRN 10/16/22 aerosol inhaler (ProAir HFA) shortness of breath or wheezing 30 days #8.5 grams aspirin 81 mg tablet,delayed 81 mg PO DAILY 90 days #90 tabs 10/16/22 release gabapentin 800 mg tablet 800 mg PO QID 30 days #21 tabs 11/06/22 guaifenesin 100 mg/5 mL oral liquid 5 ml PO Q4H PRN Cough #200 mL 11/06/22 prednisone 20 mg tablet 40 mg PO DAILY #8 tabs 11/06/22 sertraline 50 mg tablet 50 mg PO DAILY #90 tabs 11/08/22 tizanidine 4 mg tablet 4 mg PO Q8H PRN muscle spasm 30 11/08/22 days #90 tabs acetaminophen 650 mg 650 mg PO Q12H PRN pain 30 days 11/12/22 tablet,extended release #60 tabs ibuprofen 800 mg tablet 800 mg PO BID PRN pain #60 tabs 11/12/22 albuterol sulfate 90 mcg/actuation 2 puff inhalation Q4-6H PRN 11/13/22 aerosol inhaler (ProAir HFA) shortness of breath or wheezing #8.5 grams prednisone 20 mg tablet 40 mg PO DAILY #10 tabs 11/13/22 Allergies Allergy/AdvReac Type Severity Reaction Status Date / Time doxycycline Allergy Severe Swelling Verified 11/05/22 04:26 varenicline [From CHANTIX] Allergy Severe ANAPHYLAXIS Verified 11/05/22 04:26 barium sulfate Allergy Intermediate angioedema Verified 11/05/22 04:26 azithromycin Allergy Mild Rash Verified 11/05/22 04:26 cetirizine Allergy Mild Rash Verified 11/05/22 04:26 famotidine Allergy Mild Rash Verified 11/05/22 04:26 linaclotide [Linzess] Allergy Mild Rash Verified 11/05/22 04:26 Review of Systems Review of Systems: Constitutional : No Weight loss, No Fever, No Chills, No Night Sweats, No Fatigue, No Malaise ENT/Mouth : No Hearing loss, No Ear Pain, No Nasal Congestion, No Sinus Pain, No Hoarseness, No sore throat, No Rhinorrhea, No Swallowing Difficulty Eyes: No Eye Pain, No Swelling, No Redness, No Foreign Body, No Discharge, No Vision Changes Cardiovascular : No Chest Pain, No SOB, No Dyspnea on Exertion, No Orthopnea, No Edema, No Palpitations Respiratory : No increased cough or sputum production, complaining of wheezing and worse with exertion. Gastrointestinal : No Nausea, No Vomiting, No Diarrhea, No Constipation, No abdominal Pain, No Hematochezia, No Melena Genitourinary : no irregular bleeding, No Dysuria, No Urinary Frequency, No Hematuria, No Urinary Incontinence, No Urgency, No Flank Pain, No Urinary Flow Changes, No Hesitancy Musculoskeletal : No joint pain, No Myalgias, No Joint Swelling Skin : No Skin Lesions, No rash Neuro : No Weakness, No Numbness, No Paresthesias, No Loss of Consciousness, No Dizziness, No Headache Psych : No Anxiety/Panic, No Depression, No SI/HI/AH/VH, No Social Issues, Heme/Lymph: No Bruising, No Bleeding,No Lymphadenopathy Endocrine : No Polyuria, No Polydipsia, No Temperature Intolerance [facility] Past Medical History Medical History Acute and chronic respiratory failure with hypercapnia Acute and chronic respiratory failure, unspecified whether with hypoxia or hypercapnia Acute and chronic respiratory failure, unspecified whether with hypoxia or hypercapnia Asthma Bustos's esophagus Carpal tunnel syndrome of right wrist Chest discomfort Chronic idiopathic constipation Chronic renal failure, stage 2 (mild) Cocaine abuse COPD (chronic obstructive pulmonary disease) COPD exacerbation Crack cocaine use Depression Diabetes mellitus Encounter for preoperative pulmonary examination Gastroparesis GERD (gastroesophageal reflux disease) Hernia High triglycerides HTN (hypertension) Knee pain, bilateral Nausea & vomiting Obesity (BMI 30-39.9) Respiratory failure Smoker Surgical History History of carpal tunnel release History of esophagogastroduodenoscopy (EGD) History of open reduction and internal fixation (ORIF) procedure History of pubovaginal sling History of umbilical hernia repair Hx of section Hx of cholecystectomy Hx of tubal ligation Family History Family History Father Heart disease HENRY (obstructive sleep apnea) Family history of breast cancer Mother Asthma Emphysema, unspecified Bronchitis Smoker Alcoholism Bone marrow disease Maternal Grandmother Diabetes Social History Social History Household Members: Family Housing: House Are you a primary resident care aide to a significant other at home: No Do you presently have visiting nurse or other home services: Yes ([employer] everyday) Unable to assess alcohol history related to: Unknown Alcohol intake: never Patient Tobacco Use Status: Current everyday Tobacco user Tobacco use type: Cigarette Cigarettes Per Day: 10 Years Smoked: 35 Second Hand Smoke Exposure: No Substance Use Type: Crack/Cocaine Advance Directives: No Advance Directives Information Provided: No Advance Directives Date on File: 04/15/20 service: No Current occupational status: disabled 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 Oriented X3. No acute distress. Eyes: Pupils equal, round and reactive to light. ENT: Pharynx normal. Neck: Normal inspection. Neck supple. No lymph nodes noted. No crepitus CVS: Normal heart rate and rhythm. Pulses normal. Normal S1 and S2 Respiratory: No respiratory distress. Diffuse bilateral wheezing, moderate air movement, no rales or crackles Abdomen: Soft and nontender. No rigidity. No distention. Skin: Skin warm and dry. Normal skin color. Normal skin turgor. Extremities: No lower extremity edema. No Lacerations. No Rash Neuro: Oriented X 3. No motor deficit. No sensory deficit. Moving all extremities. No slurred speech. CN 2 through 12 grossly intact Psych: calm, cooperative, normal affect Medications Administered Discontinued Medications Generic Name Dose Route Start Last Admin Trade Name Brian PRN Reason Stop Dose Admin Albuterol Sulfate 10 mg 11/13/22 21:28 11/13/22 21:46 Albuterol Sulfate (0.083%) 2.5 Mg/3 Ml Vial.Neb INHALE 11/13/22 21:29 10 mg ONCE ONE Administration Magnesium Sulfate 2 gm in 50 mls @ 25 mls/hr 11/13/22 21:28 11/13/22 21:58 Magnesium Sulfate/H2o IV 11/13/22 23:27 25 mls/hr ONCE ONE Administration Methylprednisolone Sodium Succinate 125 mg 11/13/22 21:28 11/13/22 21:58 Methylprednisolone Sod Succ 125 Mg/2 Ml Vial IVPUSH 11/13/22 21:29 125 mg ONCE ONE Administration Medical Decision Making Medical Decision Making [facility] Narrative: - Patient has chronic leukocytosis, but W BC count is higher today secondary to using steroids -chest x-ray on my interpretation, no consolidations -lactic acid elevated secondary to using inhalers. Sepsis not suspected. -patient does not have COPD symptoms this time, this is most likely asthma exacerbation. Chest x-ray does not show any consolidations. Patient does not have increased sputum production or increase in oxygen demand -I discussed the patient with Dr. Bach, patient being admitted. Admission/Observation Consideration of admission/observation: Escalation of care including admission/observation considered Consult Healthcare Provider Management of the patient was discussed with: Hospitalist Lab Data [facility] Lab Attestation statement: I reviewed the patient's lab results. 11/13/22 21:19 11/13/22 21:19 Labs: Lab Results 11/13/22 11/13/22 11/13/22 Range/Units 21:19 21:48 21:48 WBC 20.1 H (4.8-10.8) X10*3/uL RBC 5.01 (4.20-5.50) X10*6/uL Hgb 13.0 (12.0-16.0) g/dl Hct 40.4 (37.0-47.0) % MCV 80.6 (80.0-98.0) fL MCH 25.9 L (27.0-33.0) pg MCHC 32.2 (31.0-35.0) g/dl RDW 16.9 H (11.0-16.0) % Plt Count 415 H (160-400) X10*3/uL MPV 9.3 L (9.4-12.3) fL Immature Gran % (Auto) 0.5 H (0.0-0.4) % Neut % (Auto) 78.6 H (45-73) % Lymph % (Auto) 13.9 L (20-40) % [place] % (Auto) 6.4 (2-11) % Eos % (Auto) 0.4 (0-4) % Baso % (Auto) 0.2 (0-2) % Lymph # (Auto) 2.8 (1.2-4.9) X10*3/uL [place] # (Auto) 1.3 H (0.1-1.2) X10*3/uL Eos # (Auto) 0.1 (0.0-0.4) X10*3/uL Baso # (Auto) 0.0 (0.0-0.2) X10*3/uL Abs Immat Gran (auto) 0.10 H (0.00-0.03) X10*3/uL Absolute Neuts (auto) 15.8 H (2.0-8.3) x10*3/uL Absolute Nucleated RBC 0.000 (0.0-0.012) X10*3/uL Nucleated RBC % (auto) 0.0 (0.0-0.2) /100WBC VBG pH (7.32-7.43) VBG pCO2 mmHg VBG pO2 mmHg VBG HCO3 (22-26) mmol/L VBG O2 Saturation % VBG Base Excess mmol/L Sodium 138 (135-145) mmol/L Potassium 3.3 (3.3-5.1) mmol/L Chloride 100 (96-108) mmol/L Carbon Dioxide 26 (22-29) mmol/L Anion Gap 15 (12-20) BUN 12 (9-16) mg/dL Creatinine 0.81 (0.5-1.4) mg/dL Estim Creat Clear Calc 70.1 Estimated GFR > 60 Random Glucose 163 H (60-115) mg/dL Lactic Acid 3.4 H* (0.5-2.0) mmol/L Calcium 8.8 (8.4-10.2) mg/dL 11/13/22 Range/Units 22:02 WBC (4.8-10.8) X10*3/uL RBC (4.20-5.50) X10*6/uL Hgb (12.0-16.0) g/dl Hct (37.0-47.0) % MCV (80.0-98.0) fL MCH (27.0-33.0) pg MCHC (31.0-35.0) g/dl RDW (11.0-16.0) % Plt Count (160-400) X10*3/uL MPV (9.4-12.3) fL Immature Gran % (Auto) (0.0-0.4) % Neut % (Auto) (45-73) % Lymph % (Auto) (20-40) % [place] % (Auto) (2-11) % Eos % (Auto) (0-4) % Baso % (Auto) (0-2) % Lymph # (Auto) (1.2-4.9) X10*3/uL [place] # (Auto) (0.1-1.2) X10*3/uL Eos # (Auto) (0.0-0.4) X10*3/uL Baso # (Auto) (0.0-0.2) X10*3/uL Abs Immat Gran (auto) (0.00-0.03) X10*3/uL Absolute Neuts (auto) (2.0-8.3) x10*3/uL Absolute Nucleated RBC (0.0-0.012) X10*3/uL Nucleated RBC % (auto) (0.0-0.2) /100WBC VBG pH 7.51 H (7.32-7.43) VBG pCO2 32 mmHg VBG pO2 95 mmHg VBG HCO3 26 (22-26) mmol/L VBG O2 Saturation 99.0 % VBG Base Excess 3.9 mmol/L Sodium (135-145) mmol/L Potassium (3.3-5.1) mmol/L Chloride (96-108) mmol/L Carbon Dioxide (22-29) mmol/L Anion Gap (12-20) BUN (9-16) mg/dL Creatinine (0.5-1.4) mg/dL Estim Creat Clear Calc Estimated GFR Random Glucose (60-115) mg/dL Lactic Acid (0.5-2.0) mmol/L Calcium (8.4-10.2) mg/dL Radiology Impression Discussion of test interpretation with radiology: I have reviewed the radiologist's reading. Radiologist Impression: FINDINGS: The lungs are hyperinflated but clear of acute process. Heart size and pulmonary vascularity is normal. No gross bony abnormality seen. XR/XR chest 2V IMPRESSION: Hyperinflated lungs without acute process. ? Critical Care Time Critical Care Time Critical Care Time: Yes Total Critical Care Time: 60 Attestation: I have personally provided critical care time. Time includes review of lab data, radiology results, discussion with consultants, and monitoring for potential decompensation. Intervention performed as documented. Discharge Plan Discharge Clinical Impression: Asthma exacerbation Patient Disposition: Admitted As Inpatient Prescriptions: No Action (DME) lancets [FreeStyle Lancets] 28 gauge misc See Rx Instructions .ROUTE .MEDSUPPLY Qty: 100 1RF Rx Instructions: Use to check blood sugar daily or if symptomatic hypo/hypergylcemia (DME) 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 meter [FreeStyle Lite Meter] Kit See Rx Instructions .ROUTE .MEDSUPPLY Qty: 1 0RF Rx Instructions: Use to check blood sugar daily or if symptomatic for hypo/hyperglycemia glipizide 5 mg tablet 5 mg PO DAILY 30 Days Qty: 30 4RF (DME) FreeStyle Lite Strips Strip See Rx Instructions .ROUTE .MEDSUPPLY Qty: 100 1RF Rx Instructions: Use to check blood sugar daily or if symptomatic hypo/hypergylcemia Trulicity 0.75 mg/0.5 mL pen injector 0.75 mg subcut MO@1000 Qty: 2 0RF famotidine [Zantac-360 (famotidine)] 10 mg tablet 10 mg PO BEDTIME Qty: 90 0RF aspirin 81 mg tablet,delayed release (DR/EC) 81 mg PO DAILY 90 Days Qty: 90 1RF albuterol sulfate [ProAir HFA] 90 mcg/actuation HFA aerosol inhaler 2 puff inhalation Q6H PRN (Reason: shortness of breath or wheezing) 30 Days Qty: 8.5 4RF Rx Instructions: proair tizanidine 4 mg tablet 4 mg PO Q8H PRN (Reason: muscle spasm) 30 Days Qty: 90 0RF ibuprofen 800 mg tablet 800 mg PO BID PRN (Reason: pain) Qty: 60 0RF acetaminophen 650 mg tablet extended release 650 mg PO Q12H PRN (Reason: pain) 30 Days Qty: 60 0RF furosemide 20 mg tablet 20 mg PO DAILY prednisone 20 mg tablet 40 mg PO DAILY Qty: 8 0RF guaifenesin 100 mg/5 mL Liquid 5 ml PO Q4H PRN (Reason: Cough) Qty: 200 0RF gabapentin 800 mg tablet 800 mg PO QID 30 Days Qty: 21 2RF prednisone 20 mg tablet 40 mg PO DAILY Qty: 10 0RF albuterol sulfate [ProAir HFA] 90 mcg/actuation HFA aerosol inhaler 2 puff inhalation Q4-6H PRN (Reason: shortness of breath or wheezing) Qty: 8.5 0RF sertraline 50 mg tablet 50 mg PO DAILY Qty: 90 0RF lorazepam 0.5 mg tablet 0.5 mg PO BID PRN ipratropium-albuterol 0.5 mg-3 mg(2.5 mg base)/3 mL solution for nebulization inhalation BID losartan 25 mg tablet 25 mg PO DAILY Stiolto Respimat 2.5-2.5 mcg/actuation mist 2 puff inhalation DAILY 30 Days Qty: 4 6RF theophylline 400 mg tablet extended release 24 hr 400 mg PO BID 30 Days Qty: 60 6RF ipratropium bromide 0.02 % solution 2.5 ml inhalation Q6H PRN (Reason: shortness of breath or wheezing) 30 Days Qty: 225 6RF
[2022-11-13 22:18] LABS: Anion Gap 15 (12-20); Blood Urea Nitrogen 12 mg/dL (9-16); Calcium 8.8 mg/dL (8.4-10.2); Carbon Dioxide 26 mmol/L (22-29); Chloride 100 mmol/L (96-108); Creatinine Clr Calc Pharmacy 70.1; Estimated Glomerular Filt Rate > 60; Glucose Random 163 mg/dL (60-115); Potassium 3.3 mmol/L (3.3-5.1); Sodium 138 mmol/L (135-145)
[2022-11-13 22:19] LABS: Lactic Acid 3.4 mmol/L (0.5-2.0)
[2022-11-13 22:54] LABS: VBG Base Excess 3.9 mmol/L; VBG HCO3 26 mmol/L (22-26); VBG pCO2 32 mmHg; VBG pH 7.51 (7.32-7.43); VBG pO2 95 mmHg
[2022-11-13 22:56] LABS: Venous Blood Gas Refer to POC result
[2022-11-13 23:22] VITALS: BP 124/66; PULSE 117; RESP 24; O2SAT 96
--- NOTE | 2022-11-13 23:23 | PC.NURSE ---
Walking pulse ox 95-96% on Room air
[2022-11-13] MEDS: levalbuterol HCL 1.25 MG/3 ML VIAL.NEB INHALE (23:41)
[2022-11-13 23:42] VITALS: PULSE 109; RESP 16; O2SAT 93
[2022-11-14] VITALS (10 sets, daily range): BP systolic 99–167; BP diastolic 49–98; PULSE 95–114; RESP 11–20; TEMP 36.2–36.6; O2SAT 93–96
[2022-11-14 00:01] LABS: Reflex Lactate? Lactic Acid Added
[2022-11-14] MEDS: Enoxaparin Sodium 40 MG/0.4 ML SYRINGE SUBCUT ×2 (00:50→23:02)
[2022-11-14] MEDS: 0.9 % Sodium Chloride Flush 3 ML SYRINGE IVFLUSH ×4 (00:50→22:08)
[2022-11-14 01:04] LABS: ~Lactic Acid-LAB USE ONLY 5.9 mmol/L (0.5-2.0)
[2022-11-14] MEDS: Lactated Ringers 1,000 ML 100 ML IVCONT ×2 (02:19→22:06)
[2022-11-14 02:44] LABS: Reflex Lactate? 2 Y
[2022-11-14 03:21] LABS: MANUAL DIFF FLAG NO
[2022-11-14 03:22] LABS: Basophils Percent Auto 0.1 % (0-2); Eosinophils Percent Auto 0.1 % (0-4); Hematocrit 39.9 % (37.0-47.0); Hemoglobin 12.8 g/dl (12.0-16.0); Imm Gran Abs Auto 0.07 X10*3/uL (0.00-0.03); Imm Gran Pct Auto 0.5 % (0.0-0.4); Lymphocytes Absolute Auto 0.4 X10*3/uL (1.2-4.9); Lymphocytes Percent Auto 2.6 % (20-40); Mean Corpuscular HGB Conc 32.1 g/dl (31.0-35.0); Mean Corpuscular Hemoglobin 25.5 pg (27.0-33.0); Mean Corpuscular Volume 79.6 fL (80.0-98.0); Mean Platelet Volume 9.1 fL (9.4-12.3); Monocytes Absolute Auto 0.1 X10*3/uL (0.1-1.2); Monocytes Percent Auto 0.5 % (2-11); Neutrophils Absolute Auto 14.2 x10*3/uL (2.0-8.3); Neutrophils Percent Auto 96.2 % (45-73); Platelet Count 403 X10*3/uL (160-400); Red Blood Count 5.01 X10*6/uL (4.20-5.50); Red Cell Distribution Width 16.5 % (11.0-16.0); SCAN SMEAR FLAG 1; White Blood Count 14.7 X10*3/uL (4.8-10.8)
[2022-11-14 03:45] LABS: Anion Gap 16 (12-20); Blood Urea Nitrogen 13 mg/dL (9-16); Calcium 8.8 mg/dL (8.4-10.2); Carbon Dioxide 26 mmol/L (22-29); Chloride 99 mmol/L (96-108); Estimated Glomerular Filt Rate > 60; Glucose Random 359 mg/dL (60-115); Potassium 3.1 mmol/L (3.3-5.1); Sodium 138 mmol/L (135-145)
[2022-11-14] MEDS: Insulin Lispro 100 UNIT/ML 3 ML VIAL 10 UNIT SUBCUT (04:53)
[2022-11-14 04:58] LABS: Glucose, Whole Blood 330 mg/dL (60-115)
--- NOTE | 2022-11-14 06:39 | PM.IMHP ---
History of Present Illness Date of Service: 11/14/22 Chief Complaint: sob 52-year-old female with past medical history of COPD /asthma on baseline oxygen, diabetes, obesity, GERD, HTN, active smoker presents to the hospital with complaints of shortness of breath, shortness of breath, going on for several days, associated with some cough, minimal sputum production, has significant wheezing not responding to breathing treatments. Patient was also seen in the ED several times and given prednisone p.o. and reports no relief. Patient denies any fever, no chills, has tachycardia tachypnea, reports no chest pain, no abdominal pain nausea or vomiting, no diarrhea constipation, no urinary symptoms and no lower extremity edema. On arrival to the ED patient hemodynamically stable with tachycardia, tachypnea heart rate in the 110s, respiratory rate of 26 Labs are significant for WBC count of 20, pH of 7.51 with no CO2 retention, potassium 3.1 which was repleted, hyperglycemia with a level of 359, lactic acid of 3.4, chest CT shows mild emphysema chronic bronchitis, no evidence of acute pneumonitis or parenchymal consolidation Review of Systems Review of Systems: Yes all other systems are reviewed and are negative [facility] Medical History Acute and chronic respiratory failure with hypercapnia Acute and chronic respiratory failure, unspecified whether with hypoxia or hypercapnia Acute and chronic respiratory failure, unspecified whether with hypoxia or hypercapnia Asthma Bustos's esophagus Carpal tunnel syndrome of right wrist Chest discomfort Chronic idiopathic constipation Chronic renal failure, stage 2 (mild) Cocaine abuse COPD (chronic obstructive pulmonary disease) COPD exacerbation Crack cocaine use Depression Diabetes mellitus Encounter for preoperative pulmonary examination Gastroparesis GERD (gastroesophageal reflux disease) Hernia High triglycerides HTN (hypertension) Knee pain, bilateral Nausea & vomiting Obesity (BMI 30-39.9) Respiratory failure Smoker Family History Father Heart disease HENRY (obstructive sleep apnea) Family history of breast cancer Mother Asthma Emphysema, unspecified Bronchitis Smoker Alcoholism Bone marrow disease Maternal Grandmother Diabetes Surgical History History of carpal tunnel release History of esophagogastroduodenoscopy (EGD) History of open reduction and internal fixation (ORIF) procedure History of pubovaginal sling History of umbilical hernia repair Hx of section Hx of cholecystectomy Hx of tubal ligation Social History Household Members: Family Housing: House Are you a primary health care facilities inspector to a significant other at home: No Do you presently have visiting nurse or other home services: Yes ([employer] everyday) Unable to assess alcohol history related to: Unknown Alcohol intake: never Patient Tobacco Use Status: Current everyday Tobacco user Tobacco use type: Cigarette Cigarettes Per Day: 10 Years Smoked: 35 Second Hand Smoke Exposure: No Substance Use Type: Crack/Cocaine Advance Directives: No Advance Directives Information Provided: No Advance Directives Date on File: 04/15/20 Nutrition Risks: Diabetes new onset/Uncontrolled service: No Current occupational status: disabled 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 Meds Allergies Allergy/AdvReac Type Severity Reaction Status Date / Time doxycycline Allergy Severe Swelling Verified 11/05/22 04:26 varenicline [From CHANTIX] Allergy Severe ANAPHYLAXIS Verified 11/05/22 04:26 barium sulfate Allergy Intermediate angioedema Verified 11/05/22 04:26 azithromycin Allergy Mild Rash Verified 11/05/22 04:26 cetirizine Allergy Mild Rash Verified 11/05/22 04:26 famotidine Allergy Mild Rash Verified 11/05/22 04:26 linaclotide [Linzess] Allergy Mild Rash Verified 11/05/22 04:26 Active Medications: Current Medications Acetaminophen (Acetaminophen 325 Mg Tablet) 650 mg PO Q6H PRN PRN Reason: Pain, Mild (Pain Scale 1-3) Docusate Sodium (Docusate Sodium 100 Mg Capsule) 100 mg PO DAILY PRN PRN Reason: Constipation Enoxaparin Sodium (Enoxaparin Sodium 40 Mg/0.4 Ml Syringe) 40 mg SUBCUT Q24H [facility] Last Admin: 11/14/22 00:50 Dose: 40 mg Glucose (Glucose Gel 15 Gm Gel..Gram.) 15 gm PO Q15M PRN; Protocol PRN Reason: per Hypoglycemia Standing Ord. Dextrose (D10) 250 mls @ 750 mls/hr IV Q15M PRN; Protocol PRN Reason: per Hypoglycemia Standing Ord. Lactated Ringer's (Lr) 1,000 mls @ 100 mls/hr IVCONT .Q10H [facility] Last Admin: 11/14/22 02:19 Dose: 100 mls/hr Insulin Human Lispro (Insulin Lispro 100 Unit/Ml 3 Ml Vial) 0 unit SUBCUT QIDACHS [place]; Protocol Levalbuterol HCl (Levalbuterol Hcl 1.25 Mg/3 Ml Vial.Neb) 1.25 mg INHALE RQ4H WHILE AWAKE [place] Levalbuterol HCl (Levalbuterol Hcl 1.25 Mg/3 Ml Vial.Neb) 1.25 mg INHALE Q3H PRN PRN Reason: Shortness of Breath/Wheezing Methylprednisolone Sodium Succinate (Methylprednisolone Sod Succ 40 Mg/Ml Vial) 40 mg IVPUSH Q12H [place] Ondansetron HCl (Ondansetron Hcl 4 Mg/2 Ml Vial) 4 mg IVPUSH Q8H PRN PRN Reason: Nausea and Vomiting Pharmacy Consult (Consult Rx Perform Med Rec) 1 each MISCELLANE ONCE PRN PRN Reason: Consult order Sodium Chloride (0.9 % Sodium Chloride Flush 3 Ml Syringe) 3 ml IVFLUSH QSHIFT [facility] Last Admin: 11/14/22 00:50 Dose: 3 ml Home Medications Medication Instructions Recorded Confirmed Last Taken Type furosemide 20 mg tablet 20 mg PO DAILY 11/05/22 11/14/22 11/04/22 History ipratropium 0.5 mg-albuterol 3 mg 3 ml inhalation BID 11/08/22 11/14/22 Unknown History (2.5 mg base)/3 mL nebulization soln lorazepam 0.5 mg tablet 0.5 mg PO BID PRN Anxiety 11/08/22 11/14/22 Unknown History losartan 25 mg tablet 25 mg PO DAILY 11/08/22 11/14/22 Unknown History Physical Exam Vital Signs and Narrative: Vital Signs: Last Vital Signs Temp 97.8 F 11/14/22 01:45 Pulse 104 H 11/14/22 01:45 Resp 11 L 11/14/22 01:45 BP 99/49 L 11/14/22 01:45 Pulse Ox 96 11/14/22 01:45 O2 Del Method Room Air 11/14/22 01:45 BMI result Body Mass Index 33.5 Const: General: cooperative and no acute distress Orientation/consciousness: patient oriented x3 Eyes: General: appearance normal, both eyes and all related structures Pupils: Equal, round and reactive pupils present Resp: Other: tachypnea, has significant inspiratory and expiratory wheezing despite breathing treatment Cardio: Rate: regular rate Rhythm: regular rhythm GI: Palpation (GI): Soft to palpation Auscultation: normal bowel sounds Skin: General skin exam: no rashes or lesions noted Neuro: General: patient oriented x3 Cranial nerves: Yes Equal, round and reactive pupils present Cognition (Neuro): normal cognition Extrem: General: Yes normal to inspection and Yes no pedal edema Results Labs 11/14/22 03:15 11/14/22 03:15 Labs: Laboratory Results - last 24 hr 11/13/22 11/13/22 11/13/22 21:19 21:48 21:48 MCV 80.6 MCH 25.9 L MCHC 32.2 RDW 16.9 H Plt Count 415 H MPV 9.3 L Immature Gran % (Auto) 0.5 H Neut % (Auto) 78.6 H Lymph % (Auto) 13.9 L [place] % (Auto) 6.4 Eos % (Auto) 0.4 Baso % (Auto) 0.2 Lymph # (Auto) 2.8 [place] # (Auto) 1.3 H Eos # (Auto) 0.1 Baso # (Auto) 0.0 Abs Immat Gran (auto) 0.10 H Absolute Neuts (auto) 15.8 H Absolute Nucleated RBC 0.000 Nucleated RBC % (auto) 0.0 VBG pH VBG pCO2 VBG pO2 VBG HCO3 VBG O2 Saturation VBG Base Excess Anion Gap 15 Estim Creat Clear Calc 70.1 Estimated GFR > 60 POC Glucose Random Glucose 163 H Lactic Acid 3.4 H* Lactic Acid F/U @ 2Hr Lactic Acid F/U @ 4Hr Calcium 8.8 11/13/22 11/14/22 11/14/22 22:02 00:40 03:15 MCV 79.6 L MCH 25.5 L MCHC 32.1 RDW 16.5 H Plt Count 403 H MPV 9.1 L Immature Gran % (Auto) 0.5 H Neut % (Auto) 96.2 H Lymph % (Auto) 2.6 L [place] % (Auto) 0.5 L Eos % (Auto) 0.1 Baso % (Auto) 0.1 Lymph # (Auto) 0.4 L [place] # (Auto) 0.1 Eos # (Auto) 0.0 Baso # (Auto) 0.0 Abs Immat Gran (auto) 0.07 H Absolute Neuts (auto) 14.2 H Absolute Nucleated RBC 0.000 Nucleated RBC % (auto) 0.0 VBG pH 7.51 H VBG pCO2 32 VBG pO2 95 VBG HCO3 26 VBG O2 Saturation 99.0 VBG Base Excess 3.9 Anion Gap Estim Creat Clear Calc Estimated GFR POC Glucose Random Glucose Lactic Acid Lactic Acid F/U @ 2Hr 5.9 H* Lactic Acid F/U @ 4Hr Calcium 11/14/22 11/14/22 11/14/22 03:15 03:15 04:52 MCV MCH MCHC RDW Plt Count MPV Immature Gran % (Auto) Neut % (Auto) Lymph % (Auto) [place] % (Auto) Eos % (Auto) Baso % (Auto) Lymph # (Auto) [place] # (Auto) Eos # (Auto) Baso # (Auto) Abs Immat Gran (auto) Absolute Neuts (auto) Absolute Nucleated RBC Nucleated RBC % (auto) VBG pH VBG pCO2 VBG pO2 VBG HCO3 VBG O2 Saturation VBG Base Excess Anion Gap 16 Estim Creat Clear Calc 66.0 Estimated GFR > 60 POC Glucose 330 H Random Glucose 359 H* Lactic Acid Lactic Acid F/U @ 2Hr Lactic Acid F/U @ 4Hr 5.0 H* Calcium 8.8 Imaging Radiologist's Impressions: Impressions Chest X-Ray 11/13/22 21:43 IMPRESSION: Hyperinflated lungs without acute process. Chest CT 11/14/22 01:30 IMPRESSION: * Mild emphysema and chronic bronchitis. * No evidence of acute pneumonitis or parenchymal consolidation. * No suspicious pulmonary nodules. Fleischner guidelines were followed. Assessment and Plan (1) Acute exacerbation of COPD with asthma: Status: Acute (2) Tachycardia: Status: Acute Plan 52-year-old female with past medical history of chronic respiratory failure on oxygen presents to the hospital with complaints of shortness of breath, as well as wheezing found to have acute asthma exacerbation # acute asthma/COPD exacerbation - has significant wheezing despite treatment, was also treated with prednisone for the past 2 days, failed outpatient therapy - will admit, treat with Solu-Medrol, Xopenex q.i.d. - monitor respiratory status # tachycardia - sinus - likely secondary to respiratory failure - monitor heart rate # diabetes - has hyperglycemia - will treat with low-dose sliding scale insulin - diabetic diet # depression anxiety - continue sertraline # obesity - follow with PCP for weight management # hypertension - stable - continue antihypertensives DVT prophylaxis: Lovenox Time Spent With Patient Time: Total time managing care of this patient today ____ minutes. Quality Stroke Does the patient have a stroke diagnosis?: No VTE Prior VTE?: No VTE Risk Level:: Medical - moderate - high VTE Device Contraindication: Treatment Not Indicated VTE Drug Contraindication: N/A - Med Ordered
[2022-11-14] MEDS: ondansetron HCL 4 MG/2 ML VIAL IVPUSH (06:56)
--- NOTE | 2022-11-14 06:56 | PC.NURSE ---
Pt medicated per AUG for nausea.
[2022-11-14 07:09] LABS: Glucose, Whole Blood 258 mg/dL (60-115)
--- NOTE | 2022-11-14 07:24 | PHA.MEDREC ---
Pharmacy Consult ? Medication Reconciliation Pharmacy has completed the medication reconciliation. Checked med rec in am
--- NOTE | 2022-11-14 07:24 | PC.NURSE ---
Initial contact with pt. pt resting comfortably on side. verbalizes no complaints at this time. fluids running, line flushed for patency. call ott in reach.
[2022-11-14] MEDS: Insulin Lispro 100 UNIT/ML 3 ML VIAL SUBCUT ×2 (07:53→16:56)
[2022-11-14] MEDS: methylPREDNISolone Sod Succ 40 MG/ML VIAL IVPUSH ×2 (07:53→22:03)
--- NOTE | 2022-11-14 07:58 | PC.NURSE ---
verbal report to puja smith
[2022-11-14] MEDS: Potassium Chloride ER 20 MEQ TAB.ER.PRT 40 MEQ PO (08:01)
[2022-11-14 08:46] LABS: Procalcitonin 0.19 ng/mL
[2022-11-14 09:50] LABS: Amphetamine Screen Urine Not Detected (Not Detect); Barbiturates, Urine Not Detected (Not Detect); Benzodiazepines Screen Urine Not Detected (Not Detect); Cannabinoid Screen Urine Not Detected (Not Detect); Cocaine Screen Urine POSITIVE (Not Detect); Opiate Screen Urine POSITIVE (Not Detect); Phencyclidine Screen Urine Not Detected (Not Detect)
[2022-11-14 10:00] LABS: Fentanyl, urine Not Detected (Not Detect)
[2022-11-14] MEDS: Aspirin Enteric Coated 81 MG TABLET.DR PO (10:19)
[2022-11-14] MEDS: Theophylline Anhydrous ER 400 MG TAB.ER.24H PO ×2 (10:19→22:04)
[2022-11-14] MEDS: Gabapentin 400 MG CAPSULE 800 MG PO ×4 (10:19→22:05)
[2022-11-14] MEDS: Furosemide 20 MG TABLET PO (10:20)
[2022-11-14] MEDS: Losartan Potassium 25 MG TABLET PO (10:20)
[2022-11-14] MEDS: Sertraline HCL 50 MG TABLET PO (10:20)
[2022-11-14 11:19] LABS: Glucose, Whole Blood 125 mg/dL (60-115)
--- NOTE | 2022-11-14 11:42 | MHC.CM.PN ---
PATIENT LIVES WITH HER SISTER/HCP COPY REQUESTED. SHE USES A CANE, WALKER,INHALERS, CPAP, NEBULIZER, AND CPAP (THROUGH [facility]) PATIENT'S DAUGHTER, MARINA, IS HE [employer] PROFESSOR OF MEDICINE. PLAN IS HOME - SELF CARE R.T. AWARE OF COMPLICATIONS WITH [facility] SUPPLIES. CHAPARRO 11/14 IN CHART
--- NOTE | 2022-11-14 13:10 | P.PNIM_ITS ---
Subjective Subjective Date of Service: 11/14/22 Interval History: WHeezing + dyspnea improved Coughing, no sputum, no fever Review of Systems Review of Systems: Yes all other systems are reviewed and are negative Physical Exam Vital Signs: Vital Signs: Last Vital Signs Temp 97.9 F 11/14/22 12:00 Pulse 95 11/14/22 12:00 Resp 18 11/14/22 12:00 BP 165/75 H 11/14/22 12:00 Pulse Ox 94 11/14/22 12:00 O2 Del Method Room Air 11/14/22 12:00 BMI result Body Mass Index 33.5 Gen: in no acute distress HEENT: sclera anicteric, moist mucus membranes Neck: supple Lungs: dimimished Heart: regular rate and rhythm, no murmurs Abd: soft, non-tender, non-distended Ext: no edema Skin: warm/well-perfused Neuro: alert and oriented x3, no focal findings Psych: appropriate affect Objective Data Active Medications Acetaminophen (Acetaminophen 325 Mg Tablet) 650 mg PO Q6H PRN PRN Reason: Pain, Mild (Pain Scale 1-3) Aspirin (Aspirin Enteric Coated 81 Mg Tablet.Dr) 81 mg PO DAILY [facility] Last Admin: 11/14/22 10:19 Dose: 81 mg Documented By: DEXTER Docusate Sodium (Docusate Sodium 100 Mg Capsule) 100 mg PO DAILY PRN PRN Reason: Constipation Enoxaparin Sodium (Enoxaparin Sodium 40 Mg/0.4 Ml Syringe) 40 mg SUBCUT Q24H [facility] Last Admin: 11/14/22 00:50 Dose: 40 mg Documented By: BLACK Famotidine (Famotidine 20 Mg Tablet) 10 mg PO BEDTIME [facility] Furosemide (Furosemide 20 Mg Tablet) 20 mg PO DAILY [facility]; Protocol Last Admin: 11/14/22 10:20 Dose: 20 mg Documented By: DEXTER Gabapentin (Gabapentin 400 Mg Capsule) 800 mg PO QID [facility] Last Admin: 11/14/22 10:19 Dose: 800 mg Documented By: DEXTER Glucose (Glucose Gel 15 Gm Gel..Gram.) 15 gm PO Q15M PRN; Protocol PRN Reason: per Hypoglycemia Standing Ord. Guaifenesin (Guaifenesin 100 Mg/5 Ml Liquid) 5 ml PO Q4H PRN PRN Reason: Cough Dextrose (D10) 250 mls @ 750 mls/hr IV Q15M PRN; Protocol PRN Reason: per Hypoglycemia Standing Ord. Lactated Ringer's (Lr) 1,000 mls @ 100 mls/hr IVCONT .Q10H [facility] Last Infusion: 11/14/22 12:45 Dose: 100 mls/hr Documented By: DEXTER Insulin Human Lispro (Insulin Lispro 100 Unit/Ml 3 Ml Vial) 0 unit SUBCUT QIDACHS [facility]; Protocol Last Admin: 11/14/22 11:41 Dose: Not Given Documented By: DEXTER Non-Admin Reason: No Insulin Coverage Ipratropium [place] (Ipratropium [place] 0.5 Mg/2.5 Ml Solution) 0.5 mg INHALE RQ4H WHILE AWAKE [facility] Last Admin: 11/14/22 10:21 Dose: Not Given Documented By: GILLIAN Non-Admin Reason: pt refused states not wheezing Levalbuterol HCl (Levalbuterol Hcl 1.25 Mg/3 Ml Vial.Neb) 1.25 mg INHALE RQ4H WHILE AWAKE [facility] Last Admin: 11/14/22 10:21 Dose: Not Given Documented By: GILLIAN Non-Admin Reason: pt refused states not wheezing Levalbuterol HCl (Levalbuterol Hcl 1.25 Mg/3 Ml Vial.Neb) 1.25 mg INHALE Q3H PRN PRN Reason: Shortness of Breath/Wheezing Lorazepam (Lorazepam 0.5 Mg Tablet) 0.5 mg PO BID PRN PRN Reason: Anxiety Losartan Potassium (Losartan Potassium 25 Mg Tablet) 25 mg PO DAILY [facility]; Protocol Last Admin: 11/14/22 10:20 Dose: 25 mg Documented By: DEXTER Methylprednisolone Sodium Succinate (Methylprednisolone Sod Succ 40 Mg/Ml Vial) 40 mg IVPUSH Q12H [facility] Last Admin: 11/14/22 07:53 Dose: 40 mg Documented By: ZARIOC Non-Formulary Medication (Tiotropium-Olodaterol [Stiolto Respimat]) 2 puff INHALE DAILY [facility] Ondansetron HCl (Ondansetron Hcl 4 Mg/2 Ml Vial) 4 mg IVPUSH Q8H PRN PRN Reason: Nausea and Vomiting Last Admin: 11/14/22 06:56 Dose: 4 mg Documented By: BLACK Pharmacy Consult (Consult Rx Perform Med Rec) 1 each MISCELLANE ONCE PRN PRN Reason: Consult order Sertraline HCl (Sertraline Hcl 50 Mg Tablet) 50 mg PO DAILY [facility] Last Admin: 11/14/22 10:20 Dose: 50 mg Documented By: DEXTER Sodium Chloride (0.9 % Sodium Chloride Flush 3 Ml Syringe) 3 ml IVFLUSH QSHIFT [facility] Last Admin: 11/14/22 07:54 Dose: 3 ml Documented By: TOMASA Theophylline (Theophylline Anhydrous Er 400 Mg Tab.Er.24h) 400 mg PO BID [facility] Last Admin: 11/14/22 10:19 Dose: 400 mg Documented By: DEXTER Tizanidine HCl (Tizanidine Hcl 4 Mg Tablet) 4 mg PO Q8H PRN PRN Reason: muscle spasm Labs 11/14/22 03:15 11/14/22 03:15 Labs: Laboratory Results - last 24 hr 11/13/22 11/13/22 11/13/22 21:19 21:48 21:48 MCV 80.6 MCH 25.9 L MCHC 32.2 RDW 16.9 H Plt Count 415 H MPV 9.3 L Immature Gran % (Auto) 0.5 H Neut % (Auto) 78.6 H Lymph % (Auto) 13.9 L [place] % (Auto) 6.4 Eos % (Auto) 0.4 Baso % (Auto) 0.2 Lymph # (Auto) 2.8 [place] # (Auto) 1.3 H Eos # (Auto) 0.1 Baso # (Auto) 0.0 Abs Immat Gran (auto) 0.10 H Absolute Neuts (auto) 15.8 H Absolute Nucleated RBC 0.000 Nucleated RBC % (auto) 0.0 VBG pH VBG pCO2 VBG pO2 VBG HCO3 VBG O2 Saturation VBG Base Excess Anion Gap 15 Estim Creat Clear Calc 70.1 Estimated GFR > 60 POC Glucose Random Glucose 163 H Lactic Acid 3.4 H* Lactic Acid F/U @ 2Hr Lactic Acid F/U @ 4Hr Calcium 8.8 Procalcitonin Urine Opiates Screen Urine Fentanyl Screen Ur Barbiturates Screen Ur Phencyclidine Scrn Ur Amphetamines Screen U Benzodiazepines Scrn Urine Cocaine Screen U Marijuana (THC) Screen 11/13/22 11/14/22 11/14/22 22:02 00:40 03:15 MCV 79.6 L MCH 25.5 L MCHC 32.1 RDW 16.5 H Plt Count 403 H MPV 9.1 L Immature Gran % (Auto) 0.5 H Neut % (Auto) 96.2 H Lymph % (Auto) 2.6 L [place] % (Auto) 0.5 L Eos % (Auto) 0.1 Baso % (Auto) 0.1 Lymph # (Auto) 0.4 L [place] # (Auto) 0.1 Eos # (Auto) 0.0 Baso # (Auto) 0.0 Abs Immat Gran (auto) 0.07 H Absolute Neuts (auto) 14.2 H Absolute Nucleated RBC 0.000 Nucleated RBC % (auto) 0.0 VBG pH 7.51 H VBG pCO2 32 VBG pO2 95 VBG HCO3 26 VBG O2 Saturation 99.0 VBG Base Excess 3.9 Anion Gap Estim Creat Clear Calc Estimated GFR POC Glucose Random Glucose Lactic Acid Lactic Acid F/U @ 2Hr 5.9 H* Lactic Acid F/U @ 4Hr Calcium Procalcitonin Urine Opiates Screen Urine Fentanyl Screen Ur Barbiturates Screen Ur Phencyclidine Scrn Ur Amphetamines Screen U Benzodiazepines Scrn Urine Cocaine Screen U Marijuana (THC) Screen 11/14/22 11/14/22 11/14/22 03:15 03:15 04:52 MCV MCH MCHC RDW Plt Count MPV Immature Gran % (Auto) Neut % (Auto) Lymph % (Auto) [place] % (Auto) Eos % (Auto) Baso % (Auto) Lymph # (Auto) [place] # (Auto) Eos # (Auto) Baso # (Auto) Abs Immat Gran (auto) Absolute Neuts (auto) Absolute Nucleated RBC Nucleated RBC % (auto) VBG pH VBG pCO2 VBG pO2 VBG HCO3 VBG O2 Saturation VBG Base Excess Anion Gap 16 Estim Creat Clear Calc 66.0 Estimated GFR > 60 POC Glucose 330 H Random Glucose 359 H* Lactic Acid Lactic Acid F/U @ 2Hr Lactic Acid F/U @ 4Hr 5.0 H* Calcium 8.8 Procalcitonin 0.19 Urine Opiates Screen Urine Fentanyl Screen Ur Barbiturates Screen Ur Phencyclidine Scrn Ur Amphetamines Screen U Benzodiazepines Scrn Urine Cocaine Screen U Marijuana (THC) Screen 11/14/22 11/14/22 11/14/22 06:52 08:57 11:12 MCV MCH MCHC RDW Plt Count MPV Immature Gran % (Auto) Neut % (Auto) Lymph % (Auto) [place] % (Auto) Eos % (Auto) Baso % (Auto) Lymph # (Auto) [place] # (Auto) Eos # (Auto) Baso # (Auto) Abs Immat Gran (auto) Absolute Neuts (auto) Absolute Nucleated RBC Nucleated RBC % (auto) VBG pH VBG pCO2 VBG pO2 VBG HCO3 VBG O2 Saturation VBG Base Excess Anion Gap Estim Creat Clear Calc Estimated GFR POC Glucose 258 H 125 H Random Glucose Lactic Acid Lactic Acid F/U @ 2Hr Lactic Acid F/U @ 4Hr Calcium Procalcitonin Urine Opiates Screen POSITIVE H Urine Fentanyl Screen Not Detected Ur Barbiturates Screen Not Detected Ur Phencyclidine Scrn Not Detected Ur Amphetamines Screen Not Detected U Benzodiazepines Scrn Not Detected Urine Cocaine Screen POSITIVE H U Marijuana (THC) Screen Not Detected Assessment and Plan (1) Acute exacerbation of COPD with asthma: Status: Acute Plan d#2 52yo F with asthma/COPD, HENRY not yet on CPAP, presenting with dyspnea + wheezing # acute exac of astham/COPD overlap - failed outpt therapy, continue IV methlyprednisolone + scheduled/prn nebs with levalbuterol + iptatropium - continue controller inhalers + theophylline - flu/RSV/Covid swab # tachycardia - resolving, switched albuterol to levalbuterol # lactic acidosis - due to bronchodilators, not sepsis # HENRY - RT assistance with [facility] for CPAP # DM2 - niecy-dose lispro # HTN - losartan # mood disorder - sertraline # VTE ppx: LMWH # dispo: anticipate home in next 1-2d In my clinical judgment, the patient requires continued inpatient hospitalizatio n for the following reasons: resp failure Time Spent With Patient Time: Total time managing care of this patient today _35___ minutes. Quality Stroke Does the patient have a stroke diagnosis?: No VTE Prior VTE?: No VTE Risk Level:: Medical - moderate - high VTE Device Contraindication: Treatment Not Indicated VTE Drug Contraindication: N/A - Med Ordered
[2022-11-14] MEDS: Ipratropium Bromide 0.5 MG/2.5 ML SOLUTION INHALE (15:36)
[2022-11-14] MEDS: levalbuterol HCL 1.25 MG/3 ML VIAL.NEB INHALE ×2 (15:36→22:07)
[2022-11-14 16:33] LABS: Glucose, Whole Blood 188 mg/dL (60-115)
[2022-11-14] MEDS: Magnesium Hydrox/Alum Hydrox 30 ML ORAL.SUSP PO (17:06)
[2022-11-14 20:58] LABS: Glucose, Whole Blood 130 mg/dL (60-115)
[2022-11-14] MEDS: Famotidine 20 MG TABLET 10 MG PO (22:05)
[2022-11-14] MEDS: guaiFENesin 100 MG/5 ML LIQUID PO (23:05)
[2022-11-15 03:50] VITALS: BP 129/58; PULSE 85; RESP 17; TEMP 36.4; O2SAT 95
[2022-11-15 06:24] LABS: Hematocrit 42.6 % (37.0-47.0); Hemoglobin 13.2 g/dl (12.0-16.0); Mean Corpuscular Hemoglobin 25.6 pg (27.0-33.0); Mean Corpuscular Volume 82.7 fL (80.0-98.0); Mean Platelet Volume 9.6 fL (9.4-12.3); Platelet Count 454 X10*3/uL (160-400); Red Blood Count 5.15 X10*6/uL (4.20-5.50); Red Cell Distribution Width 17.2 % (11.0-16.0); White Blood Count 21.1 X10*3/uL (4.8-10.8)
[2022-11-15 06:26] LABS: Anion Gap 13 (12-20); Blood Urea Nitrogen 16 mg/dL (9-16); Calcium 9.5 mg/dL (8.4-10.2); Carbon Dioxide 30 mmol/L (22-29); Chloride 102 mmol/L (96-108); Creatinine Clr Calc Pharmacy 65.3; Estimated Glomerular Filt Rate > 60; Glucose Random 220 mg/dL (60-115); Potassium 5.7 mmol/L (3.3-5.1); Sodium 139 mmol/L (135-145)
[2022-11-15 07:19] VITALS: BP 169/90; PULSE 96; RESP 17; TEMP 36.2; O2SAT 96
[2022-11-15 07:32] LABS: Glucose, Whole Blood 172 mg/dL (60-115)
[2022-11-15] MEDS: Insulin Lispro 100 UNIT/ML 3 ML VIAL SUBCUT (07:54)
[2022-11-15] MEDS: Sertraline HCL 50 MG TABLET PO (07:55)
[2022-11-15] MEDS: Gabapentin 400 MG CAPSULE 800 MG PO (07:55)
[2022-11-15] MEDS: Furosemide 20 MG TABLET PO (07:55)
[2022-11-15] MEDS: methylPREDNISolone Sod Succ 40 MG/ML VIAL IVPUSH (07:55)
[2022-11-15] MEDS: Theophylline Anhydrous ER 400 MG TAB.ER.24H PO (07:55)
[2022-11-15] MEDS: Aspirin Enteric Coated 81 MG TABLET.DR PO (07:55)
[2022-11-15] MEDS: guaiFENesin 100 MG/5 ML LIQUID PO (07:55)
[2022-11-15] MEDS: Ipratropium Bromide 0.5 MG/2.5 ML SOLUTION INHALE (08:00)
[2022-11-15] MEDS: levalbuterol HCL 1.25 MG/3 ML VIAL.NEB INHALE (08:00)
[2022-11-15] MEDS: Magnesium Hydrox/Alum Hydrox 30 ML ORAL.SUSP PO (08:01)
[2022-11-15 08:03] VITALS: PULSE 96; RESP 16; O2SAT 96
[2022-11-15 08:23] LABS: Potassium 5.7 mmol/L (3.3-5.1)
[2022-11-15] MEDS: Sodium Zirconium Cyclosilicate 10 GM POWD.PACK PO (10:33)
[2022-11-15 11:24] LABS: Glucose, Whole Blood 177 mg/dL (60-115)
--- NOTE | 2022-11-15 11:39 | MHC.CM.PN ---
THIS SOUVENIR ASSEMBLER INFORMED THAT PATIENT IS LEAVING AMA. NO CASE MANAGEMENT INTERVENTION REQUIRED.
--- NOTE | 2022-11-15 11:59 | PM.DS ---
DS: Providers Provider Date of Service: 11/15/22 Date of admission: 11/13/22 23:46 Date of discharge: 11/15/22 Primary care physician: Unknown Physician Attending physician on discharge: Burt Rodríguez Discharging clinician: Vandana Cline DS: Diagnosis Discharge Diagnosis (1) Acute exacerbation of COPD with asthma: Status: Acute (2) Hyperkalemia: Status: Acute DS: Summary Hospital Course Hospital Course: From H&P on day of admission 52-year-old female with past medical history of COPD /asthma on baseline oxygen, diabetes, obesity, GERD, HTN, active smoker presents to the hospital with complaints of shortness of breath, shortness of breath, going on for several days, associated with some cough, minimal sputum production, has significant wheezing not responding to breathing treatments.? Patient was also seen in the ED several times and given prednisone p.o. and reports no relief. ? Patient denies any fever, no chills, has tachycardia tachypnea, reports no chest pain, no abdominal pain nausea or vomiting, no diarrhea constipation, no urinary symptoms and no lower extremity edema.? On arrival to the ED patient hemodynamically stable with tachycardia, tachypnea heart rate in the 110s, respiratory rate of 26 Labs are significant for WBC count of 20, pH of 7.51 with no CO2 retention, potassium 3.1 which was repleted, hyperglycemia with a level of 359, lactic acid of 3.4, ?chest CT shows mild emphysema chronic bronchitis, no evidence of acute pneumonitis or parenchymal consolidation 52yo F with asthma/COPD, HENRY not yet on CPAP, presenting with dyspnea + wheezing acute exac of astham/COPD overlap failed outpt therapy, continue IV methlyprednisolone + scheduled/prn nebs with levalbuterol + iptatropium flu/RSV/Covid swab pending Respiratory status improved. Not currently requiring any supplemental oxygen hyperkalemia k 5.7, given dose of lokelma, losartan held planed to repeat this afternoon however patient couldn't be convinced to stay any longer patient requested to leave against medical advice. Attempted to discuss importance of repeat potassium level prior to discharge and potential effects of elevated potassium levels including fatal arrhythmia. Patient was awake, alert and oriented and said she would stopping eating bananas. She understood concern over elevated potassium but said she was leaving no matter what and would not wait for repeat potassium check this afternoon. She was dressed and walked out of the room and did not allow for further discussion. she said that the ED had prescribed her a course of prednisone which she has not yet taking and she plans to take that and call to schedule follow-up appointment with her PCP. Time Spent with Patient Time attestation: Total time managing care of this patient today ____ minutes. Discharge coordination time: Greater than 30 minutes Quality: Safe Use of Opioids Does Pt have an Active Cancer Diagnosis on the Problem List?: No Quality: Stroke Does the patient have a stroke diagnosis?: No Physical Exam Vital Signs: Vital Signs: Last Vital Signs Temp 97.1 F 11/15/22 07:19 Pulse 96 11/15/22 08:03 Resp 16 11/15/22 08:03 BP 169/90 H 11/15/22 07:19 Pulse Ox 96 11/15/22 07:19 O2 Del Method Room Air 11/15/22 07:19 BMI result Body Mass Index 33.5 Const: General: alert and awake Orientation/consciousness: patient oriented x3 Resp: Effort & Inspection: normal respiratory effort, able to speak in complete sentences, no respiratory distress and no use of accessory muscles Neuro: General: patient oriented x3 and CN's II-XI intact bilaterally DS: Data Data Completed and Pending Completed studies during hospitalization [Text1]: Procedures Assistance with Respiratory Ventilation, Less than 24 Consecutive Hours, Continuous Positive Airway Pressure (04/27/22) Insertion of Endotracheal Airway into Trachea, Via Natural or Artificial Opening (11/03/20) Insertion of Infusion Device into Superior Vena Cava, Percutaneous Approach (11/03/20) Respiratory Ventilation, Less than 24 Consecutive Hours (11/03/20) Labs on day of discharge: Laboratory Results - last 24 hr 11/14/22 11/14/22 11/15/22 16:18 20:37 05:49 WBC 21.1 H RBC 5.15 Hgb 13.2 Hct 42.6 MCV 82.7 MCH 25.6 L MCHC 31.0 RDW 17.2 H Plt Count 454 H MPV 9.6 Absolute Nucleated RBC 0.000 Nucleated RBC % (auto) 0.0 Sodium Potassium Chloride Carbon Dioxide Anion Gap BUN Creatinine Estim Creat Clear Calc Estimated GFR POC Glucose 188 H 130 H Random Glucose Calcium 11/15/22 11/15/22 11/15/22 05:49 07:23 07:56 WBC RBC Hgb Hct MCV MCH MCHC RDW Plt Count MPV Absolute Nucleated RBC Nucleated RBC % (auto) Sodium 139 Potassium 5.7 H D 5.7 H Chloride 102 Carbon Dioxide 30 H Anion Gap 13 BUN 16 Creatinine 0.87 Estim Creat Clear Calc 65.3 Estimated GFR > 60 POC Glucose 172 H Random Glucose 220 H Calcium 9.5 D 11/15/22 11:19 WBC RBC Hgb Hct MCV MCH MCHC RDW Plt Count MPV Absolute Nucleated RBC Nucleated RBC % (auto) Sodium Potassium Chloride Carbon Dioxide Anion Gap BUN Creatinine Estim Creat Clear Calc Estimated GFR POC Glucose 177 H Random Glucose Calcium Preliminary micro results at discharge 11/13/22 23:58 Blood Culture - Preliminary Blood - Venous No growth after 24 hours. 11/13/22 23:58 Blood Culture - Preliminary Blood - Venous No growth after 24 hours. Discharge Plan Discharge Patient Disposition: Left Against Medical Advice Referrals: Physician,Unknown J [Primary Care Provider] - 1 Week Discharge Medications: No Action (DME) lancets [FreeStyle Lancets] 28 gauge misc See Rx Instructions .ROUTE .MEDSUPPLY Qty: 100 1RF Rx Instructions: Use to check blood sugar daily or if symptomatic hypo/hypergylcemia (DME) 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 meter [FreeStyle Lite Meter] Kit See Rx Instructions .ROUTE .MEDSUPPLY Qty: 1 0RF Rx Instructions: Use to check blood sugar daily or if symptomatic for hypo/hyperglycemia glipizide 5 mg tablet 5 mg PO DAILY 30 Days Qty: 30 4RF (DME) FreeStyle Lite Strips Strip See Rx Instructions .ROUTE .MEDSUPPLY Qty: 100 1RF Rx Instructions: Use to check blood sugar daily or if symptomatic hypo/hypergylcemia Trulicity 0.75 mg/0.5 mL pen injector 0.75 mg subcut MO@1000 Qty: 2 0RF famotidine [Zantac-360 (famotidine)] 10 mg tablet 10 mg PO BEDTIME Qty: 90 0RF aspirin 81 mg tablet,delayed release (DR/EC) 81 mg PO DAILY 90 Days Qty: 90 1RF tizanidine 4 mg tablet 4 mg PO Q8H PRN (Reason: muscle spasm) 30 Days Qty: 90 0RF ibuprofen 800 mg tablet 800 mg PO BID PRN (Reason: pain) Qty: 60 0RF acetaminophen 650 mg tablet extended release 650 mg PO Q12H PRN (Reason: pain) 30 Days Qty: 60 0RF furosemide 20 mg tablet 20 mg PO DAILY prednisone 20 mg tablet 40 mg PO DAILY Qty: 8 0RF guaifenesin 100 mg/5 mL Liquid 5 ml PO Q4H PRN (Reason: Cough) Qty: 200 0RF gabapentin 800 mg tablet 800 mg PO QID 30 Days Qty: 21 2RF albuterol sulfate [ProAir HFA] 90 mcg/actuation HFA aerosol inhaler 2 puff inhalation Q4-6H PRN (Reason: shortness of breath or wheezing) Qty: 8.5 0RF sertraline 50 mg tablet 50 mg PO DAILY Qty: 90 0RF lorazepam 0.5 mg tablet 0.5 mg PO BID PRN (Reason: Anxiety) ipratropium-albuterol 0.5 mg-3 mg(2.5 mg base)/3 mL solution for nebulization 3 ml inhalation BID losartan 25 mg tablet 25 mg PO DAILY Stiolto Respimat 2.5-2.5 mcg/actuation mist 2 puff inhalation DAILY 30 Days Qty: 4 6RF theophylline 400 mg tablet extended release 24 hr 400 mg PO BID 30 Days Qty: 60 6RF ipratropium bromide 0.02 % solution 2.5 ml inhalation Q6H PRN (Reason: shortness of breath or wheezing) 30 Days Qty: 225 6RF Discharge Orders: Discharge Order (Routine); Ordered 11/15/22 Ordered By: Vandana Cline Care Plan Goals: see below Health Concerns: acute copd exacerbation hyperkalemia Plan of Treatment: call PCP for repeat potassium check and follow up to evaluate respiratory status stop smoking Assessment: left ama Discharge Date/Time: 11/15/22 11:47
== END 2022-11-15 11:47 | disposition left against medical advice (07) ==
LOC: HO.ED 23:53 → HO.EDOVER 23:54 → HO.S3 11-14 07:25
PROVIDERS: Family Medicine; Admitting Provider Internal Medicine; Emergency Provider Emergency Medicine; PCP Nurse Practitioner Family; Visit Provider Physician Assistant Medical
DX: J45.901 Unspecified asthma with (acute) exacerbation (principal); J44.1 Chronic obstructive pulmonary disease with (acute) exacerbation; E11.22 Type 2 diabetes mellitus with diabetic chronic kidney disease; I12.9 Hypertensive chronic kidney disease with stage 1 through stage 4 chronic kidney disease, or unspecified chronic kidney disease; N18.2 Chronic kidney disease, stage 2 (mild); K21.9 Gastro-esophageal reflux disease without esophagitis; E87.5 Hyperkalemia; R00.0 Tachycardia, unspecified; R06.82 Tachypnea, not elsewhere classified; Z79.4 Long term (current) use of insulin
CPT/HCPCS: 36415; 71046; 71250; 80048; 80307; 82803; 82947; 83605; 84132; 84145; 85025; 85027; 87040; 93005; 94640; 96361; 96365; 96366; 96372; 96375; 96376; 99221; 99285; J1650; J2405; J2920; J2930; J3475

== ENCOUNTER → 2022-12-21 11:03 | Outpatient (BNVA) | payer OTHER, SELFPAY | PROVIDERS: PCP Nurse Practitioner Family; Visit Provider Internal Medicine Pulmonary Disease ==

== ENCOUNTER 2023-01-18 12:48 | Outpatient (AMB) | payer OTHER, SELFPAY ==
--- NOTE | 2023-01-18 12:50 | MHC.OFFVIS ---
Intake Vital Signs 01/18/23 12:51 Height 4 ft 11 in Weight 161 lb 6.054 oz BMI 32.6 BP 121/73 Blood Pressure Location Rt brachial Position Sitting Pulse 85 Intake Visit Reasons: follow up appointment pt req Intake Note: Patient presents to in office visit today in follow up of GERD. CC: C/o constipation, bloating, GERD, epigastric pain, nausea. Denies other GI symptoms. 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: No Accompanied by: Self / Same As Patient Allergies doxycycline Allergy (Severe, Verified 01/18/23 12:53) Swelling varenicline [From CHANTIX] Allergy (Severe, Verified 01/18/23 12:53) ANAPHYLAXIS barium sulfate Allergy (Intermediate, Verified 01/18/23 12:53) angioedema azithromycin Allergy (Mild, Verified 01/18/23 12:53) Rash cetirizine Allergy (Mild, Verified 01/18/23 12:53) Rash famotidine Allergy (Mild, Verified 01/18/23 12:53) Rash linaclotide [Linzess] Allergy (Mild, Verified 01/18/23 12:53) Rash HPI follow up appointment pt req HPI Details Assessment & Plan (1) GERD (gastroesophageal reflux disease): ?Code(s): K21.9 - Gastro-esophageal reflux disease without esophagitis ?Qualifiers: ?Esophagitis presence:?esophagitis presence not specified? Qualified Code(s):?K21.9 - Gastro-esophageal reflux disease without esophagitis ?Plan: Initially, despite me seeing her for many years she does not recognize me as her provider saying its finally good to meet you. Marika has been having more trouble with dysphagia of solid foods getting stuck at the JXN. She has been continuing on her Dexilant, and has gastroparesis on her dx list, but I'm not sure why she is not on reglan (? did not tolerate). She has been eating smaller, more frequent meals but this is a definite contributing factor. BUT she also has a hx of severe esophageal dysmotility, and she thought the dicyclomine was for intestinal cramping, but it is in fact for her dysphagia. I explain this and I want her to start taking it tid ac. She has SSBE, but last biopsy neg for dysplasia, her MO and gastric motility make her GERD difficult to treat (as well as her limited insight). She continues to think we can see the mesh) from her prior hernia surgeries despite education with EGD. She was last on Amitiza for CIC as Linzess was too strong, but has not needed to use it for a time. At this point I will see her after the upper endoscopy. (2) Bustos's esophagus: ?Comment: 12/2019 EGD, repeat 2021 Esophagus: Hiatal hernia from 38 to 40 cms. A 2 cms tongue of Bustos's at GE junction and a 2nd 1 cms tongue of Barretts - biopsies were obtained. Tortuous esophagus with increased tertiary contractions without stricture.Esophagus: Hiatal hernia from 38 to 40 cms. A 2 cms tongue of Bustos's at GE junction and a 2nd 1 cms tongue of Barretts - biopsies were obtained. Tortuous esophagus with increased tertiary contractions without stricture. * BIOPSY Esophagus, biopsies:? Gastroesophageal junctional mucosa with mild chronic inactive ?? inflammation and intestinal metaplasia consistent with Bustos's esophagus; squamous ?? epithelium with mild reactive features suggestive of chronic reflux; negative for ?? dysplasia. ?Code(s): K22.70 - Bustos's esophagus without dysplasia (3) Gastroparesis: ?Code(s): K31.84 - Gastroparesis (4) Esophageal dysmotility: ?Code(s): K22.4 - Dyskinesia of esophagus ? ? ? Medications:?Changed From dicyclomine 20 mg (2 x 10 mg) PO QID PRN 720 ca ps 1RF for cramps D K22.4 - Dyskinesia of esophagus ? To dicyclomine ?1-2 caps tidac fo r dysphagia PO .ti dac;? 180 caps 6RF for cramps K22.4 - Dyskinesia of esophagus ? EGD Rescheduled for 03/2023 CORRESPONDENCE On 09/11/21 @ 13:45 Minerva Isidro Wrote To Antonietta,September (2) Pt came for EGD today for fu of Bustos's esophagus. She has a hx of Cocaine use and requested to give a urine sample for drug screen. She did not want to give a urine specimen since she said she may have used cocaine in the past 3 days. She was advised to reschedule and not to take cocaine for a week before her next EGD appt Thanks TODAY'S VISIT Marika returns today and needs refills on her medications. We discussed the fact that she needs to avoid cocaine for a week or longer so that she does not test positive and prevent us from being able to sedate her and proceed with her upper endoscopy. She is well able to verbalize understanding of this, although she does not show any inclination to stop her cocaine use in the long run. We will restart her Dexilant which she has run out of as well as her Amitiza. She is feeling quite constipated and having worse GERD as the results. It is likely that we need to do a prior approval since she fell out of our care for a while. She also continues to have dicyclomine which I gave to her for her esophageal dysmotility and she tells me she is not entirely certain how much this is helped with the swallowing but is certainly has not hurt. I tell her that her EGD has been rescheduled to April 10 and she was unaware of this. I sent her to my staff to try to get the exact time she needs to come for the procedure. Since the procedure is in the relatively near future I will see her after the EGD. [facility] Medical History (Updated 01/18/23 @ 15:16 by NATHALIE Lundberg) Acute and chronic respiratory failure with hypercapnia Acute and chronic respiratory failure, unspecified whether with hypoxia or hypercapnia Acute and chronic respiratory failure, unspecified whether with hypoxia or hypercapnia Acute exacerbation of COPD with asthma Acute respiratory failure with hypoxia Asthma Bustos's esophagus Carpal tunnel syndrome of right wrist Chest discomfort Chronic idiopathic constipation Chronic renal failure, stage 2 (mild) Cocaine abuse Cocaine abuse COPD exacerbation Crack cocaine use Depression Diabetes mellitus Encounter for preoperative pulmonary examination Gastroparesis GERD (gastroesophageal reflux disease) Hernia High triglycerides HTN (hypertension) Hyperkalemia Knee pain, bilateral Leukocytosis Leukocytosis Metabolic acidosis Nausea & vomiting Obesity (BMI 30-39.9) Respiratory failure Rotator cuff tendonitis Smoker SOB (shortness of breath) UTI (urinary tract infection) Surgical History History of carpal tunnel release History of esophagogastroduodenoscopy (EGD) History of open reduction and internal fixation (ORIF) procedure History of pubovaginal sling History of umbilical hernia repair Hx of section Hx of cholecystectomy Hx of tubal ligation Family History Father Heart disease HENRY (obstructive sleep apnea) Family history of breast cancer Mother Asthma Emphysema, unspecified Bronchitis Smoker Alcoholism Bone marrow disease Maternal Grandmother Diabetes Social History Household Members: Family Household Members Other:: sister Housing: Apartment Are you a primary career information specialist to a significant other at home: No Do you presently have visiting nurse or other home services: Yes Unable to assess alcohol history related to: Unknown Alcohol intake: never Patient Tobacco Use Status: Current everyday Tobacco user Tobacco use type: Cigarette Cigarette Packs Per Day: 1 Cigarettes Per Day: 20.0 Years Smoked: 35 e-Cigarette/Vaping Use: Currently Using Second Hand Smoke Exposure: No Substance Use Type: Crack/Cocaine Advance Directives Date on File: 04/15/20 service: No Current occupational status: disabled 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 Review of Systems Const Denies fatigue, Denies fever(s), Denies night sweats, Denies poor appetite and Denies weight loss ENT Reports Normal hearing present, Denies dental pain, Reports dysphagia, Denies hearing loss, Denies mouth pain, Denies odynophagia, Denies throat swelling, Denies tongue swelling and Reports other (Dentition adequate) Card Reports no additional complaints Resp Reports no additional complaints GI Denies abdominal pain, Denies melena, Denies bloating, Denies hematochezia, Reports constipation, Denies GI cramping, Reports dysphagia, Denies excessive flatus, Denies early satiety, Reports heartburn, Denies diarrhea, Denies nausea, Denies odynophagia, Denies vomiting and Denies hematemesis Skin/Breast Denies pruritus, Denies lesions, Denies rash and Denies jaundice Neuro Reports Normal hearing present and Denies Abnormal speech present Endo Denies fatigue Aller/Immun Denies throat swelling and Denies tongue swelling Physical Exam Vital Signs: Last Vital Signs Pulse 85 01/18/23 12:51 BP 121/73 01/18/23 12:51 BMI result Body Mass Index 32.6 Const General: cooperative, no acute distress, well developed and well groomed Nutritional Appearance: well nourished and obese Orientation/consciousness: oriented to person, oriented to place and oriented to time Limitations: No language barrier HEENT Head: Yes normocephalic and Yes atraumatic Eyes General: appearance normal, both eyes and all related structures Pupils: Equal, round and reactive pupils present Neck Neck: Yes normal visual inspection and Yes no lymphadenopathy Thyroid: Thyroid normal Resp Effort & Inspection: normal respiratory effort and able to speak in complete sentences Auscultation: clear to auscultation bilaterally Cardio Rate: regular rate Rhythm: regular rhythm Heart sounds: Normal, physiologic split S2 sound present Peripheral pulses: radial pulses present and posterior tibial pulses present GI Inspection: No distended, Yes Abdominal panniculus present and Yes obesity Palpation (GI): Soft to palpation, nontender, no guarding, not rigid and No hepatosplenomegaly present Percussion: Yes normal to percussion Auscultation: normal bowel sounds Rectal Exam - Female: deferred Skin General skin exam: no rashes or lesions noted, turgor normal, skin not dry, no jaundice, No spider nevi and no striae Rashes: no rashes Nails: normal Neuro General: oriented to person, oriented to place and oriented to time Cranial nerves: Yes Equal, round and reactive pupils present and Yes Normal hearing present Speech: No Abnormal speech present Extrem General: Yes normal to inspection, No clubbing, No cyanosis and No edema Psych Appearance: grossly normal and well kempt Mental Status: mental status grossly normal Speech and movement: Normal speech and movement present Affect: normal affect Attitude: cooperative Thought process: Normal thought process present and not confabulating Thought content: Normal thought content present Insight: Limited insight present (Psych) Judgement: Limited judgement present (Psych) Assessment & Plan Assessment & Plan (1) GERD (gastroesophageal reflux disease): Code(s): K21.9 - Gastro-esophageal reflux disease without esophagitis Qualifiers: Esophagitis presence: esophagitis presence not specified Qualified Code(s): K21.9 - Gastro-esophageal reflux disease without esophagitis Plan: Marika returns today and needs refills on her medications. We discussed the fact that she needs to avoid cocaine for a week or longer so that she does not test positive and prevent us from being able to sedate her and proceed with her upper endoscopy. She is well able to verbalize understanding of this, although she does not show any inclination to stop her cocaine use in the long run. We will restart her Dexilant which she has run out of as well as her Amitiza. She is feeling quite constipated and having worse GERD as the results. It is likely that we need to do a prior approval since she fell out of our care for a while. She also continues to have dicyclomine which I gave to her for her esophageal dysmotility and she tells me she is not entirely certain how much this is helped with the swallowing but is certainly has not hurt. I tell her that her EGD has been rescheduled to April 10 and she was unaware of this. I sent her to my staff to try to get the exact time she needs to come for the procedure. Since the procedure is in the relatively near future I will see her after the EGD. (2) Gastroparesis: Comment: Currently not on Reglan? Unsure why Code(s): K31.84 - Gastroparesis (3) Bustos's esophagus: Code(s): K22.70 - Bustos's esophagus without dysplasia (4) Cocaine abuse: Comment: Had to reschedule 2021 EGD related to recent use Code(s): F14.10 - Cocaine abuse, uncomplicated (5) Constipation: Code(s): K59.00 - Constipation, unspecified (6) Esophageal dysmotility: Code(s): K22.4 - Dyskinesia of esophagus Medications: New lubiprostone (Amitiza) 24 mcg PO BID 30 days 60 caps 1RF dexlansoprazole (Dexilant) 60 mg PO DAILY 30 days 30 caps 6RF K22.70 - Bustos's esophagus without dysplasia dicyclomine 20 mg PO QID 30 days 120 tabs 1RF Refilled famotidine (Zantac-360 (famotidine)) 10 mg PO BEDTIME 90 tabs 0RF Discontinued furosemide 20 mg PO BID 180 tabs 2RF Coding Level of Care Code Est Pt Level 3 (03440) Diagnoses GERD (gastroesophageal reflux disease) K21.9 Esophagitis presence: esophagitis presence not specified Gastroparesis K31.84 Bustos's esophagus K22.70 Cocaine abuse F14.10 Constipation K59.00 Esophageal dysmotility K22.4
[2023-01-18 12:51] VITALS: BP 121/73; PULSE 85; BMI 32.6
== END 2023-01-18 13:12 | disposition home or self-care (01) ==
PROVIDERS: PCP Nurse Practitioner Family; Visit Provider Nurse Practitioner
DX: K21.9 Gastro-esophageal reflux disease without esophagitis (principal); K31.84 Gastroparesis; K22.70 Barrett's esophagus without dysplasia; F14.10 Cocaine abuse, uncomplicated; K59.00 Constipation, unspecified; K22.4 Dyskinesia of esophagus
CPT/HCPCS: 99213

== ENCOUNTER → 2023-01-18 12:48 | Outpatient (BNVA) | payer OTHER, SELFPAY | PROVIDERS: PCP Nurse Practitioner Family; Visit Provider Nurse Practitioner | DX: K21.9 Gastro-esophageal reflux disease without esophagitis (principal); K31.84 Gastroparesis; K22.70 Barrett's esophagus without dysplasia; K22.4 Dyskinesia of esophagus; K59.00 Constipation, unspecified; F14.10 Cocaine abuse, uncomplicated | CPT/HCPCS: 99212 ==

== ENCOUNTER 2023-01-21 22:04 | Emergency (ER) | payer OTHER, SELFPAY ==
--- NOTE | ~2023-01-21 | XR_ITS ---
EXAMINATION: XR CHEST CLINICAL INFORMATION: Chest pain COMPARISON: Chest x-ray 11/13/2022 TECHNIQUE: Frontal portable view of the chest was obtained. 10:56 PM FINDINGS: Lungs are clear. No pulmonary vascular congestion. There is no pleural effusion. The heart size is normal. The cardiac and mediastinal contours are normal. Left-sided healed rib fractures of the left seventh-ninth ribs. XR/XR chest 1V IMPRESSION: Unremarkable examination.
[2023-01-21 22:08] VITALS: BP 148/52; PULSE 86; O2SAT 97
--- NOTE | 2023-01-21 22:10 | ECG_ITS ---
Test Reason : CP Blood Pressure : / mmHG Vent. Rate : 084 BPM Atrial Rate : 084 BPM P-R Int : 124 ms QRS Dur : 086 ms QT Int : 396 ms P-R-T Axes : 046 157 066 degrees QTc Int : 467 ms Sinus rhythm with Premature atrial complexes Low voltage QRS Left posterior fascicular block Inferior infarct (cited on or before 01-OCT-2022) Cannot rule out Anterior infarct , age undetermined Abnormal ECG When compared with ECG of 13-NOV-2022 21:10, Premature ventricular complexes are no longer Present Premature atrial complexes are now Present Referred By: Generic ED Physician Electronically Signed By:PAUL VARGAS MD
[2023-01-21 22:23] VITALS: BP 108/56; PULSE 79; RESP 16; TEMP 36.8; O2SAT 96; BMI 33.3
--- NOTE | 2023-01-21 22:23 | ED.CHESTPAIN ---
HPI - Chest Pain General Chief Complaint: Chest Pain Stated Complaint: chest pain and sob, per ems Time Seen by Provider: 01/21/23 22:14 Source: patient Mode of arrival: ambulatory Limitations: no limitations History of Present Illness HPI narrative: Patient's COPD on CPAP at home no known history of coronary disease noticed pain in the right side of the chest started 3 hours prior to arrival with increase shortness of breath left patient with coughing a lot for last few days getting worse, no left-sided chest pain no palpitation no fever noted no vomiting no abdominal Related Data Home Medications Medication Instructions Recorded Confirmed furosemide 20 mg tablet 20 mg PO DAILY 11/05/22 11/14/22 lorazepam 0.5 mg tablet 0.5 mg PO BID PRN Anxiety 11/08/22 11/14/22 Previous Rx's Medication Instructions Recorded lancets 28 gauge (FreeStyle #100 ea 01/20/21 Lancets) 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 meter (FreeStyle #1 ea 03/01/22 Lite Meter kit) glipizide 5 mg tablet 5 mg PO DAILY 30 days #30 tabs 08/30/22 blood sugar diagnostic (FreeStyle #100 ea 09/16/22 Lite Strips) ipratropium bromide 0.02 % 2.5 ml inhalation Q6H PRN 09/27/22 solution for inhalation shortness of breath or wheezing 30 days #225 mL aspirin 81 mg tablet,delayed 81 mg PO DAILY 90 days #90 tabs 10/16/22 release losartan 25 mg tablet 25 mg PO DAILY #90 tabs 11/16/22 gabapentin 800 mg tablet 800 mg PO QID 30 days #120 tabs 11/29/22 albuterol sulfate 90 mcg/actuation 2 puff inhalation Q4-6H PRN 12/21/22 aerosol inhaler shortness of breath or wheezing 90 days #3 ea theophylline 400 mg 400 mg PO BID 90 days #180 tabs 12/24/22 tablet,extended release 24 hr sertraline 100 mg tablet 100 mg PO DAILY 30 days #30 tabs 01/09/23 tizanidine 4 mg tablet 4 mg PO Q8H PRN muscle spasm 30 01/09/23 days #90 tabs acetaminophen 650 mg 650 mg PO Q12H PRN pain 30 days 01/14/23 tablet,extended release #60 tabs dulaglutide 0.75 mg/0.5 mL 0.75 mg (0.5 mL) subcut MO@1000 #2 01/14/23 subcutaneous pen injector mL (Trulicity) ibuprofen 800 mg tablet 800 mg PO BID PRN pain #60 tabs 01/14/23 dexlansoprazole 60 mg 60 mg PO DAILY 30 days #30 caps 01/18/23 capsule,biphase delayed release (Dexilant) dicyclomine 20 mg tablet 20 mg PO QID 30 days #120 tabs 01/18/23 famotidine 10 mg tablet 10 mg PO BEDTIME #90 tabs 01/18/23 (Zantac-360 (famotidine)) lubiprostone 24 mcg capsule 24 mcg PO BID 30 days #60 caps 01/18/23 (Amitiza) prednisone 20 mg tablet 40 mg PO DAILY #10 tabs 01/22/23 Allergies Allergy/AdvReac Type Severity Reaction Status Date / Time doxycycline Allergy Severe Swelling Verified 01/21/23 22:23 varenicline [From CHANTIX] Allergy Severe ANAPHYLAXIS Verified 01/21/23 22:23 barium sulfate Allergy Intermediate angioedema Verified 01/21/23 22:23 azithromycin Allergy Mild Rash Verified 01/21/23 22:23 cetirizine Allergy Mild Rash Verified 01/21/23 22:23 famotidine Allergy Mild Rash Verified 01/21/23 22:23 linaclotide [Linzess] Allergy Mild Rash Verified 01/21/23 22:23 Review of Systems Review of Systems: Yes all other systems are reviewed and are negative PMFSH Past Medical History Medical History Acute and chronic respiratory failure with hypercapnia Acute and chronic respiratory failure, unspecified whether with hypoxia or hypercapnia Acute and chronic respiratory failure, unspecified whether with hypoxia or hypercapnia Acute exacerbation of COPD with asthma Acute respiratory failure with hypoxia Asthma Bustos's esophagus Carpal tunnel syndrome of right wrist Chest discomfort Chronic idiopathic constipation Chronic renal failure, stage 2 (mild) Cocaine abuse Cocaine abuse COPD exacerbation Crack cocaine use Depression Diabetes mellitus Encounter for preoperative pulmonary examination Gastroparesis GERD (gastroesophageal reflux disease) Hernia High triglycerides HTN (hypertension) Hyperkalemia Knee pain, bilateral Leukocytosis Leukocytosis Metabolic acidosis Nausea & vomiting Obesity (BMI 30-39.9) Respiratory failure Rotator cuff tendonitis Smoker SOB (shortness of breath) UTI (urinary tract infection) Surgical History History of carpal tunnel release History of esophagogastroduodenoscopy (EGD) History of open reduction and internal fixation (ORIF) procedure History of pubovaginal sling History of umbilical hernia repair Hx of section Hx of cholecystectomy Hx of tubal ligation Family History Family History Father Heart disease HENRY (obstructive sleep apnea) Family history of breast cancer Mother Asthma Emphysema, unspecified Bronchitis Smoker Alcoholism Bone marrow disease Maternal Grandmother Diabetes Social History Social History Household Members: Family Household Members Other:: sister Housing: Apartment Are you a primary laboratory animal care veterinarian to a significant other at home: No Do you presently have visiting nurse or other home services: Yes Unable to assess alcohol history related to: Unknown Alcohol intake: never Patient Tobacco Use Status: Current everyday Tobacco user Tobacco use type: Cigarette Cigarette Packs Per Day: 1 Cigarettes Per Day: 20.0 Years Smoked: 35 e-Cigarette/Vaping Use: Currently Using Second Hand Smoke Exposure: No Substance Use Type: Crack/Cocaine Advance Directives: No Advance Directives Information Provided: No Advance Directives Date on File: 04/15/20 service: No Current occupational status: disabled 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 Oriented X3. No acute distress. Eyes: PERRLA, No Nystagmus ENT: Pharynx normal. Oral Mucosa moist Neck: Normal inspection. Neck supple. CVS: Normal heart rate and rhythm. Pulses normal. Respiratory: No respiratory distress. Equal air entry bilateral, bilateral wheezing Abdomen: Soft and nontender. Bowel sounds are present, no mass palpable, no CVA tenderness Skin: Skin warm and dry. Normal skin color. Normal skin turgor. Extremities: No lower extremity edema. No calf tenderness Neuro: Oriented X 3. No motor deficit. No sensory deficit.No cerebellar signs , cranial nerves II-XII intact Medications Administered Discontinued Medications Generic Name Dose Route Start Last Admin Trade Name Freq PRN Reason Stop Dose Admin Albuterol/Ipratropium 3 ml 01/21/23 22:32 01/21/23 22:54 Albuterol/Iprat 2.5/0.5mg 3 Ml Ampul.Neb INHALE 01/21/23 22:33 3 ml ONCE ONE Administration Medical Decision Making Medical Decision Making [facility] Narrative: Patient with COPD with pleuritic right-sided chest normal cardiac enzymes no acute EKG changes pain improved after nebulizing treatment discharge patient home on steroids advised to stop smoking Differential Diagnosis Pneumonia/pneumothorax/pleurisy/COPD/ACS Admission/Observation Consideration of admission/observation: Escalation of care including admission/observation considered Lab Data [facility] Lab Attestation statement: I reviewed the patient's lab results. 01/21/23 22:46 01/21/23 22:46 Labs: Lab Results 01/21/23 01/21/23 01/21/23 Range/Units 22:46 22:46 22:46 WBC 11.8 H (4.8-10.8) X10*3/uL RBC 5.23 (4.20-5.50) X10*6/uL Hgb 14.0 (12.0-16.0) g/dl Hct 43.4 (37.0-47.0) % MCV 83.0 (80.0-98.0) fL MCH 26.8 L (27.0-33.0) pg MCHC 32.3 (31.0-35.0) g/dl RDW 16.5 H (11.0-16.0) % Plt Count 346 (160-400) X10*3/uL MPV 9.5 (9.4-12.3) fL Immature Gran % (Auto) 0.3 (0.0-0.4) % Neut % (Auto) 53.8 (45-73) % Lymph % (Auto) 38.0 (20-40) % [place] % (Auto) 5.8 (2-11) % Eos % (Auto) 1.5 (0-4) % Baso % (Auto) 0.6 (0-2) % Lymph # (Auto) 4.5 (1.2-4.9) X10*3/uL [place] # (Auto) 0.7 (0.1-1.2) X10*3/uL Eos # (Auto) 0.2 (0.0-0.4) X10*3/uL Baso # (Auto) 0.1 (0.0-0.2) X10*3/uL Abs Immat Gran (auto) 0.03 (0.00-0.03) X10*3/uL Absolute Neuts (auto) 6.4 (2.0-8.3) x10*3/uL Absolute Nucleated RBC 0.000 (0.0-0.012) X10*3/uL Nucleated RBC % (auto) 0.0 (0.0-0.2) /100WBC Sodium 137 (135-145) mmol/L Potassium 3.9 D (3.3-5.1) mmol/L Chloride 105 (96-108) mmol/L Carbon Dioxide 24 (22-29) mmol/L Anion Gap 12 (12-20) BUN 19 H (9-16) mg/dL Creatinine 0.84 (0.5-1.4) mg/dL Estim Creat Clear Calc 67.4 Estimated GFR > 60 Random Glucose 96 (60-115) mg/dL Calcium 9.5 (8.4-10.2) mg/dL Troponin I High Sens 4.9 (<3.5-17.0) ng/L Independent Interpretation I performed an independent interpretation of an: EKG Interpretation: Normal sinus rhythm with heart rate of 84 beats per min few PACs no acute ST-T changes no acute ischemia Discharge Plan Discharge Clinical Impression: COPD (chronic obstructive pulmonary disease) Patient Disposition: Home, Self-Care Instructions: COPD (Chronic Obstructive Pulmonary Disease) (ED) Additional Instructions: Continue nebulizing treatment Stop smoking Prednisone as prescribed Follow with PCP Prescriptions: New prednisone 20 mg tablet 40 mg PO DAILY Qty: 10 0RF No Action (DME) lancets [FreeStyle Lancets] 28 gauge misc See Rx Instructions .ROUTE .MEDSUPPLY Qty: 100 1RF Rx Instructions: Use to check blood sugar daily or if symptomatic hypo/hypergylcemia (DME) 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 meter [FreeStyle Lite Meter] Kit See Rx Instructions .ROUTE .MEDSUPPLY Qty: 1 0RF Rx Instructions: Use to check blood sugar daily or if symptomatic for hypo/hyperglycemia glipizide 5 mg tablet 5 mg PO DAILY 30 Days Qty: 30 4RF (DME) FreeStyle Lite Strips Strip See Rx Instructions .ROUTE .MEDSUPPLY Qty: 100 1RF Rx Instructions: Use to check blood sugar daily or if symptomatic hypo/hypergylcemia aspirin 81 mg tablet,delayed release (DR/EC) 81 mg PO DAILY 90 Days Qty: 90 1RF losartan 25 mg tablet 25 mg PO DAILY Qty: 90 1RF gabapentin 800 mg tablet 800 mg PO QID 30 Days Qty: 120 2RF theophylline 400 mg tablet extended release 24 hr 400 mg PO BID 90 Days Qty: 180 4RF tizanidine 4 mg tablet 4 mg PO Q8H PRN (Reason: muscle spasm) 30 Days Qty: 90 0RF sertraline 100 mg tablet 100 mg PO DAILY 30 Days Qty: 30 4RF acetaminophen 650 mg tablet extended release 650 mg PO Q12H PRN (Reason: pain) 30 Days Qty: 60 0RF Trulicity 0.75 mg/0.5 mL pen injector 0.75 mg subcut MO@1000 Qty: 2 0RF ibuprofen 800 mg tablet 800 mg PO BID PRN (Reason: pain) Qty: 60 0RF furosemide 20 mg tablet 20 mg PO DAILY lorazepam 0.5 mg tablet 0.5 mg PO BID PRN (Reason: Anxiety) ipratropium bromide 0.02 % solution 2.5 ml inhalation Q6H PRN (Reason: shortness of breath or wheezing) 30 Days Qty: 225 6RF lubiprostone [Amitiza] 24 mcg capsule 24 mcg PO BID 30 Days Qty: 60 1RF dexlansoprazole [Dexilant] 60 mg capsule,biphase delayed releas 60 mg PO DAILY 30 Days Qty: 30 6RF dicyclomine 20 mg tablet 20 mg PO QID 30 Days Qty: 120 1RF famotidine [Zantac-360 (famotidine)] 10 mg tablet 10 mg PO BEDTIME Qty: 90 0RF albuterol sulfate 90 mcg/actuation HFA aerosol inhaler 2 puff inhalation Q4-6H PRN (Reason: shortness of breath or wheezing) 90 Days Qty: 3 3RF
[2023-01-21 22:51] LABS: MANUAL DIFF FLAG NO
[2023-01-21 22:54] VITALS: PULSE 76; RESP 16; O2SAT 95
[2023-01-21 22:54] LABS: Basophils Absolute Auto 0.1 X10*3/uL (0.0-0.2); Basophils Percent Auto 0.6 % (0-2); Eosinophils Absolute Auto 0.2 X10*3/uL (0.0-0.4); Eosinophils Percent Auto 1.5 % (0-4); Hematocrit 43.4 % (37.0-47.0); Imm Gran Abs Auto 0.03 X10*3/uL (0.00-0.03); Imm Gran Pct Auto 0.3 % (0.0-0.4); Lymphocytes Absolute Auto 4.5 X10*3/uL (1.2-4.9); Mean Corpuscular HGB Conc 32.3 g/dl (31.0-35.0); Mean Corpuscular Hemoglobin 26.8 pg (27.0-33.0); Mean Platelet Volume 9.5 fL (9.4-12.3); Monocytes Absolute Auto 0.7 X10*3/uL (0.1-1.2); Monocytes Percent Auto 5.8 % (2-11); Neutrophils Absolute Auto 6.4 x10*3/uL (2.0-8.3); Neutrophils Percent Auto 53.8 % (45-73); Platelet Count 346 X10*3/uL (160-400); Red Blood Count 5.23 X10*6/uL (4.20-5.50); Red Cell Distribution Width 16.5 % (11.0-16.0); White Blood Count 11.8 X10*3/uL (4.8-10.8)
[2023-01-21] MEDS: Albuterol/Iprat 2.5/0.5MG 3 ML AMPUL.NEB INHALE (22:54)
[2023-01-21 23:08] LABS: Anion Gap 12 (12-20); Blood Urea Nitrogen 19 mg/dL (9-16); Calcium 9.5 mg/dL (8.4-10.2); Carbon Dioxide 24 mmol/L (22-29); Chloride 105 mmol/L (96-108); Creatinine Clr Calc Pharmacy 67.4; Estimated Glomerular Filt Rate > 60; Glucose Random 96 mg/dL (60-115); Potassium 3.9 mmol/L (3.3-5.1); Sodium 137 mmol/L (135-145)
[2023-01-21 23:16] LABS: Troponin-I High Sensitivity 4.9 ng/L (<3.5-17.0)
[2023-01-22] VITALS: BP 132/68; PULSE 71; RESP 16; TEMP 36.7; O2SAT 94
[2023-01-22 01:37] VITALS: BP 132/77; PULSE 81; RESP 16; TEMP 36.8; O2SAT 98
[2023-01-22] MEDS: methylPREDNISolone Sod Succ 125 MG/2 ML VIAL IVPUSH (01:53)
== END 2023-01-22 02:02 | disposition home or self-care (01) ==
PROVIDERS: Emergency Provider Internal Medicine; PCP Nurse Practitioner Family
DX: J44.9 Chronic obstructive pulmonary disease, unspecified (principal); E11.9 Type 2 diabetes mellitus without complications; I10 Essential (primary) hypertension; F17.210 Nicotine dependence, cigarettes, uncomplicated; Z79.82 Long term (current) use of aspirin; Z79.899 Other long term (current) drug therapy
CPT/HCPCS: 36415; 71045; 80048; 84484; 85025; 93005; 94640; 96374; 99284; J2930

== ENCOUNTER → 2023-01-21 22:10 | Outpatient (BNV) | payer OTHER, SELFPAY | PROVIDERS: Emergency Provider Internal Medicine; PCP Nurse Practitioner Family; Visit Provider Internal Medicine Cardiovascular Disease | DX: R07.9 Chest pain, unspecified (principal) | CPT/HCPCS: 93010 ==

== ENCOUNTER 2023-01-28 02:14 | Observation (INO) | payer OTHER, SELFPAY ==
[2023-01-28] VITALS (8 sets, daily range): BP systolic 101–142; BP diastolic 62–88; PULSE 16–96; RESP 16–22; TEMP 36.9–37.1; O2SAT 90–99; BMI 37.2
--- NOTE | 2023-01-28 | ECG_ITS ---
Test Reason : SOB Blood Pressure : / mmHG Vent. Rate : 091 BPM Atrial Rate : 091 BPM P-R Int : 132 ms QRS Dur : 086 ms QT Int : 386 ms P-R-T Axes : 061 143 062 degrees QTc Int : 474 ms Artifact in tracing Sinus rhythm with Premature atrial complexes with Aberrant conduction Right axis deviation cannot exclude old Inferior infarct (cited on or before 01-OCT-2022) Abnormal ECG When compared with ECG of 21-JAN-2023 22:17, No significant change was found Referred By: Generic ED Physician Electronically Signed By:DAVIS WALKER
--- NOTE | ~2023-01-28 | XR_ITS ---
EXAMINATION: XR CHEST CLINICAL INFORMATION: Redness of breath. Cough. COMPARISON: 01/21/2023 TECHNIQUE: Frontal view of the chest was obtained. FINDINGS: The lungs are well expanded. There is no focal consolidation, edema, or effusion. No pneumothorax. The cardiomediastinal silhouette is within normal limits. No acute osseous abnormality. XR/XR chest 1V IMPRESSION: No acute pulmonary disease.
--- NOTE | 2023-01-28 02:34 | ED.SOB ---
HPI - SOB/Dyspnea General Chief Complaint: General Medical Stated Complaint: sob Time Seen by Provider: 01/28/23 02:29 Source: patient Mode of arrival: EMS Limitations: no limitations History of Present Illness HPI Narrative: 52-year-old female who presents emergency department for evaluation of chest pain, shortness of breath, nonproductive cough, chills x2 days. Patient states she has a history of COPD. She states she has been feeling short of breath over the past 2 days. Patient has a cough which is nonproductive. She denied fever but has had chills. Prior to coming to emergency department her shortness of breath got worse therefore she called an ambulance. On presentation, patient does appear to be in respiratory distress with tachypnea and dyspnea. Related Data Home Medications Medication Instructions Recorded Confirmed furosemide 20 mg tablet 20 mg PO DAILY 11/05/22 11/14/22 lorazepam 0.5 mg tablet 0.5 mg PO BID PRN Anxiety 11/08/22 11/14/22 Previous Rx's Medication Instructions Recorded lancets 28 gauge (FreeStyle #100 ea 01/20/21 Lancets) 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 meter (FreeStyle #1 ea 03/01/22 Lite Meter kit) glipizide 5 mg tablet 5 mg PO DAILY 30 days #30 tabs 08/30/22 blood sugar diagnostic (FreeStyle #100 ea 09/16/22 Lite Strips) ipratropium bromide 0.02 % 2.5 ml inhalation Q6H PRN 09/27/22 solution for inhalation shortness of breath or wheezing 30 days #225 mL aspirin 81 mg tablet,delayed 81 mg PO DAILY 90 days #90 tabs 10/16/22 release losartan 25 mg tablet 25 mg PO DAILY #90 tabs 11/16/22 gabapentin 800 mg tablet 800 mg PO QID 30 days #120 tabs 11/29/22 theophylline 400 mg 400 mg PO BID 90 days #180 tabs 12/24/22 tablet,extended release 24 hr sertraline 100 mg tablet 100 mg PO DAILY 30 days #30 tabs 01/09/23 tizanidine 4 mg tablet 4 mg PO Q8H PRN muscle spasm 30 01/09/23 days #90 tabs acetaminophen 650 mg 650 mg PO Q12H PRN pain 30 days 01/14/23 tablet,extended release #60 tabs dulaglutide 0.75 mg/0.5 mL 0.75 mg (0.5 mL) subcut MO@1000 #2 01/14/23 subcutaneous pen injector mL (Trulicity) ibuprofen 800 mg tablet 800 mg PO BID PRN pain #60 tabs 01/14/23 dexlansoprazole 60 mg 60 mg PO DAILY 30 days #30 caps 01/18/23 capsule,biphase delayed release (Dexilant) dicyclomine 20 mg tablet 20 mg PO QID 30 days #120 tabs 01/18/23 famotidine 10 mg tablet 10 mg PO BEDTIME #90 tabs 01/18/23 (Zantac-360 (famotidine)) lubiprostone 24 mcg capsule 24 mcg PO BID 30 days #60 caps 01/18/23 (Amitiza) prednisone 20 mg tablet 40 mg PO DAILY #10 tabs 01/22/23 albuterol sulfate 90 mcg/actuation 2 puff inhalation Q4-6H PRN 01/24/23 aerosol inhaler shortness of breath or wheezing 90 days #3 ea Allergies Allergy/AdvReac Type Severity Reaction Status Date / Time doxycycline Allergy Severe Swelling Verified 01/21/23 22:23 varenicline [From CHANTIX] Allergy Severe ANAPHYLAXIS Verified 01/21/23 22:23 barium sulfate Allergy Intermediate angioedema Verified 01/21/23 22:23 azithromycin Allergy Mild Rash Verified 01/21/23 22:23 cetirizine Allergy Mild Rash Verified 01/21/23 22:23 famotidine Allergy Mild Rash Verified 01/21/23 22:23 linaclotide [Linzess] Allergy Mild Rash Verified 01/21/23 22:23 Review of Systems Review of Systems: Yes all other systems are reviewed and are negative [facility] Past Medical History [facility] Narrative: Social history: Patient does smoke cigarettes. She denies alcohol use. She does use crack cocaine and used crack cocaine 9 hours prior to coming to the emergency department Medical History Acute and chronic respiratory failure with hypercapnia Acute and chronic respiratory failure, unspecified whether with hypoxia or hypercapnia Acute and chronic respiratory failure, unspecified whether with hypoxia or hypercapnia Acute exacerbation of COPD with asthma Acute respiratory failure with hypoxia Asthma Bustos's esophagus Carpal tunnel syndrome of right wrist Chest discomfort Chronic idiopathic constipation Chronic renal failure, stage 2 (mild) Cocaine abuse Cocaine abuse COPD exacerbation Crack cocaine use Depression Diabetes mellitus Encounter for preoperative pulmonary examination Gastroparesis GERD (gastroesophageal reflux disease) Hernia High triglycerides HTN (hypertension) Hyperkalemia Knee pain, bilateral Leukocytosis Leukocytosis Metabolic acidosis Nausea & vomiting Obesity (BMI 30-39.9) Respiratory failure Rotator cuff tendonitis Smoker SOB (shortness of breath) UTI (urinary tract infection) Surgical History History of carpal tunnel release History of esophagogastroduodenoscopy (EGD) History of open reduction and internal fixation (ORIF) procedure History of pubovaginal sling History of umbilical hernia repair Hx of section Hx of cholecystectomy Hx of tubal ligation Family History Family History Father Heart disease HENRY (obstructive sleep apnea) Family history of breast cancer Mother Asthma Emphysema, unspecified Bronchitis Smoker Alcoholism Bone marrow disease Maternal Grandmother Diabetes Social History Social History Household Members: Family Household Members Other:: sister Housing: Apartment Are you a primary health care recruiter to a significant other at home: No Do you presently have visiting nurse or other home services: Yes Unable to assess alcohol history related to: Unknown Alcohol intake: never Patient Tobacco Use Status: Current everyday Tobacco user Tobacco use type: Cigarette Cigarette Packs Per Day: 1 Cigarettes Per Day: 20.0 Years Smoked: 35 Smoked in Last 30 Days: Yes e-Cigarette/Vaping Use: Currently Using Second Hand Smoke Exposure: No Use of substances other than those prescribed or required for medical reasons: Yes Substance Use Type: Crack/Cocaine Substance Use Frequency: Occasionally Last Used Substance: Hours (ago) Advance Directives: No Advance Directives Information Provided: No Advance Directives Date on File: 04/15/20 Patient : No service: No Current occupational status: disabled 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 Physical Exam Vital Signs: Vital Signs: Last Vital Signs Temp 98.5 F 01/28/23 02:41 Pulse 96 01/28/23 02:58 Resp 22 H 01/28/23 02:58 BP 108/67 01/28/23 02:41 Pulse Ox 99 01/28/23 02:41 O2 Del Method Nasal Cannula 01/28/23 02:41 Oxygen Flow Rate 2 01/28/23 02:41 BMI result Body Mass Index 37.2 Const: Other: Awake, alert, female patient, she has dyspnea with tachypnea, she is able answer questions, she is using accessory muscles to breathe HEENT: Head: Yes normal to inspection, Yes normocephalic and Yes atraumatic Ears: external ears normal General nose exam: Normal external nose present Face and sinus: Yes normal facial exam Mouth: Normal oral and palatal mucosa present Throat: Yes posterior oropharynx normal Eyes: General: appearance normal, both eyes and all related structures Pupils: Equal, round and reactive pupils present Neck: Neck: Yes normal visual inspection, Yes no lymphadenopathy, Yes trachea midline and Yes supple Chest: Chest palpation & inspection: normal inspection of the chest and normal palpation of entire chest wall Resp: Other: Diffuse rales and rhonchi, breath sounds symmetric bilaterally Cardio: Rate: regular rate Rhythm: regular rhythm Heart sounds: S1 normal heart sound present, S2 normal heart sound present and no murmurs GI: Inspection: Yes normal to inspection Palpation (GI): Soft to palpation, nontender and no guarding Auscultation: normal bowel sounds : General: Yes no CVA tenderness Back/Spine/Pelvis: Back: no CVA tenderness Skin: General skin exam: no rashes or lesions noted Neuro: Cranial nerves: Yes CN's II-XII intact bilaterally and Yes Equal, round and reactive pupils present Cognition (Neuro): normal cognition Motor exam (neuro): 5/5 motor strength present throughout Extrem: General: Yes normal to inspection Psych: Appearance: grossly normal Speech and movement: Normal speech and movement present Affect: normal affect Attitude: cooperative Medications Administered Discontinued Medications Generic Name Dose Route Start Last Admin Trade Name Freq PRN Reason Stop Dose Admin Albuterol Sulfate 5 mg 01/28/23 02:37 01/28/23 04:23 Albuterol Sulfate (0.083%) 2.5 Mg/3 Ml Vial.Neb INHALE 01/28/23 02:38 5 mg ONCE ONE Administration Albuterol/Ipratropium 3 ml 01/28/23 02:37 01/28/23 02:51 Albuterol/Iprat 2.5/0.5mg 3 Ml Ampul.Neb INHALE 01/28/23 02:38 3 ml ONCE ONE Administration Methylprednisolone Sodium Succinate 125 mg 01/28/23 02:34 01/28/23 02:55 Methylprednisolone Sod Succ 125 Mg/2 Ml Vial IVPUSH 01/28/23 02:35 125 mg ONCE ONE Administration Medical Decision Making Medical Decision Making [facility] Narrative: 52-year-old female with a history of COPD presents emergency department for evaluation of shortness of breath x2 days with nonproductive cough chills but no fever. Symptoms got worse this morning. On presentation the patient does appear to be in respiratory distress with tachypnea, dyspnea and using accessory muscles to breathe. Lung exam did reveal symmetric breath sounds with diffuse wheezing and rhonchi. I ordered the following evaluation: CBC, CMP, lipase, troponin, EKG, chest x-ray one view. Patient will be treated with albuterol 5 mg mixed with DuoNeb (albuterol 2.5 mg and ipratropium) nebulizer. Patient was also ordered to get Solu-Medrol 125 mg IV 0511: Patient did improve with the above treatment however she still is using accessory muscles to breathe and has diffuse wheezing Patient was ordered another albuterol nebulizer 5 mg. I will discuss admission with the covering hospitalist. Differential Diagnosis Differential diagnosis includes was not limited to pneumonia, COPD exacerbation, bronchitis Admission/Observation Consideration of admission/observation: Escalation of care including admission/observation considered Consult Healthcare Provider Management of the patient was discussed with: Hospitalist Lab Data My independent interpretation patient's laboratory evaluation is as follows: Elevated WBC 15,300, low potassium 3.0. 01/28/23 02:33 01/28/23 02:33 Labs: Lab Results 01/28/23 01/28/23 01/28/23 Range/Units 02:33 02:33 02:33 WBC 15.3 H (4.8-10.8) X10*3/uL RBC 5.18 (4.20-5.50) X10*6/uL Hgb 14.0 (12.0-16.0) g/dl Hct 42.6 (37.0-47.0) % MCV 82.2 (80.0-98.0) fL MCH 27.0 (27.0-33.0) pg MCHC 32.9 (31.0-35.0) g/dl RDW 16.0 (11.0-16.0) % Plt Count 387 (160-400) X10*3/uL MPV 9.5 (9.4-12.3) fL Immature Gran % (Auto) 0.4 (0.0-0.4) % Neut % (Auto) 47.1 (45-73) % Lymph % (Auto) 42.9 H (20-40) % Story % (Auto) 6.9 (2-11) % Eos % (Auto) 2.2 (0-4) % Baso % (Auto) 0.5 (0-2) % Lymph # (Auto) 6.5 H (1.2-4.9) X10*3/uL Story # (Auto) 1.1 (0.1-1.2) X10*3/uL Eos # (Auto) 0.3 (0.0-0.4) X10*3/uL Baso # (Auto) 0.1 (0.0-0.2) X10*3/uL Abs Immat Gran (auto) 0.06 H (0.00-0.03) X10*3/uL Absolute Neuts (auto) 7.2 (2.0-8.3) x10*3/uL Absolute Nucleated RBC 0.000 (0.0-0.012) X10*3/uL Nucleated RBC % (auto) 0.0 (0.0-0.2) /100WBC Smear Tech's Comments VERIFIED Sodium 139 (135-145) mmol/L Potassium 3.0 L D (3.3-5.1) mmol/L Chloride 105 (96-108) mmol/L Carbon Dioxide 20 L (22-29) mmol/L Anion Gap 17 (12-20) BUN 14 (9-16) mg/dL Creatinine 0.83 (0.5-1.4) mg/dL Estim Creat Clear Calc 85.0 Estimated GFR > 60 Random Glucose 88 (60-115) mg/dL Calcium 9.2 (8.4-10.2) mg/dL Total Bilirubin 0.2 (0.0-1.0) mg/dL AST 8 (5-31) U/L ALT 9 (0-31) U/L Alkaline Phosphatase 84 (39-117) U/L Troponin I High Sens 3.7 (<3.5-17.0) ng/L Total Protein 6.8 (6.5-8.0) g/dL Albumin 4.2 (3.5-5.0) g/dL Lipase 33 (8-78) U/L Independent Interpretation I performed an independent interpretation of an: Plain X-Ray Interpretation: My independent interpretation patient's chest x-ray is as follows: No acute disease, no pneumonia Radiology Impression Discussion of test interpretation with radiology: I have reviewed the radiologist's reading. Radiologist Impression: XR chest 1V IMPRESSION: No acute pulmonary disease. Dictated By:Issac Harding MD Critical Care Time Critical Care Time Critical Care Time: Yes Total Critical Care Time: 45 Attestation: Critical Care: The patient was critically ill with a high probability of imminent or life threatening deterioration. I spent greater than 30 minutes of discontinuous time evaluating the patient,delivering critical care at the bedside, discussing and evaluating pertinent data with consultants. Critical care time does not include time spent performing separately billable procedures or teaching. Total time spent performing critical care was 45 minutes. Discharge Plan Discharge Patient Disposition: Admitted As Inpatient Prescriptions: No Action (DME) lancets [FreeStyle Lancets] 28 gauge misc See Rx Instructions .ROUTE .MEDSUPPLY Qty: 100 1RF Rx Instructions: Use to check blood sugar daily or if symptomatic hypo/hypergylcemia (DME) 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 meter [FreeStyle Lite Meter] Kit See Rx Instructions .ROUTE .MEDSUPPLY Qty: 1 0RF Rx Instructions: Use to check blood sugar daily or if symptomatic for hypo/hyperglycemia glipizide 5 mg tablet 5 mg PO DAILY 30 Days Qty: 30 4RF (DME) FreeStyle Lite Strips Strip See Rx Instructions .ROUTE .MEDSUPPLY Qty: 100 1RF Rx Instructions: Use to check blood sugar daily or if symptomatic hypo/hypergylcemia aspirin 81 mg tablet,delayed release (DR/EC) 81 mg PO DAILY 90 Days Qty: 90 1RF losartan 25 mg tablet 25 mg PO DAILY Qty: 90 1RF gabapentin 800 mg tablet 800 mg PO QID 30 Days Qty: 120 2RF theophylline 400 mg tablet extended release 24 hr 400 mg PO BID 90 Days Qty: 180 4RF tizanidine 4 mg tablet 4 mg PO Q8H PRN (Reason: muscle spasm) 30 Days Qty: 90 0RF sertraline 100 mg tablet 100 mg PO DAILY 30 Days Qty: 30 4RF acetaminophen 650 mg tablet extended release 650 mg PO Q12H PRN (Reason: pain) 30 Days Qty: 60 0RF Trulicity 0.75 mg/0.5 mL pen injector 0.75 mg subcut MO@1000 Qty: 2 0RF ibuprofen 800 mg tablet 800 mg PO BID PRN (Reason: pain) Qty: 60 0RF albuterol sulfate 90 mcg/actuation HFA aerosol inhaler 2 puff inhalation Q4-6H PRN (Reason: shortness of breath or wheezing) 90 Days Qty: 3 3RF furosemide 20 mg tablet 20 mg PO DAILY prednisone 20 mg tablet 40 mg PO DAILY Qty: 10 0RF lorazepam 0.5 mg tablet 0.5 mg PO BID PRN (Reason: Anxiety) ipratropium bromide 0.02 % solution 2.5 ml inhalation Q6H PRN (Reason: shortness of breath or wheezing) 30 Days Qty: 225 6RF lubiprostone [Amitiza] 24 mcg capsule 24 mcg PO BID 30 Days Qty: 60 1RF dexlansoprazole [Dexilant] 60 mg capsule,biphase delayed releas 60 mg PO DAILY 30 Days Qty: 30 6RF dicyclomine 20 mg tablet 20 mg PO QID 30 Days Qty: 120 1RF famotidine [Zantac-360 (famotidine)] 10 mg tablet 10 mg PO BEDTIME Qty: 90 0RF
[2023-01-28 02:39] LABS: Basophils Absolute Auto 0.1 X10*3/uL (0.0-0.2); Basophils Percent Auto 0.5 % (0-2); Eosinophils Absolute Auto 0.3 X10*3/uL (0.0-0.4); Eosinophils Percent Auto 2.2 % (0-4); Hematocrit 42.6 % (37.0-47.0); Imm Gran Abs Auto 0.06 X10*3/uL (0.00-0.03); Imm Gran Pct Auto 0.4 % (0.0-0.4); Lymphocytes Percent Auto 42.9 % (20-40); MANUAL DIFF FLAG SCAN; Mean Corpuscular HGB Conc 32.9 g/dl (31.0-35.0); Mean Corpuscular Volume 82.2 fL (80.0-98.0); Mean Platelet Volume 9.5 fL (9.4-12.3); Monocytes Absolute Auto 1.1 X10*3/uL (0.1-1.2); Monocytes Percent Auto 6.9 % (2-11); Neutrophils Absolute Auto 7.2 x10*3/uL (2.0-8.3); Neutrophils Percent Auto 47.1 % (45-73); Platelet Count 387 X10*3/uL (160-400); Red Blood Count 5.18 X10*6/uL (4.20-5.50); SCAN SMEAR FLAG 1; White Blood Count 15.3 X10*3/uL (4.8-10.8)
[2023-01-28 02:40] LABS: Lymphocytes Absolute Auto 6.5 X10*3/uL (1.2-4.9)
[2023-01-28] MEDS: Albuterol/Iprat 2.5/0.5MG 3 ML AMPUL.NEB INHALE (02:51)
[2023-01-28 02:53] LABS: Alanine Aminotransferase 9 U/L (0-31); Albumin Level 4.2 g/dL (3.5-5.0); Alkaline Phosphatase 84 U/L (39-117); Anion Gap 17 (12-20); Aspartate Amino Transferase 8 U/L (5-31); Bilirubin Total 0.2 mg/dL (0.0-1.0); Blood Urea Nitrogen 14 mg/dL (9-16); Calcium 9.2 mg/dL (8.4-10.2); Carbon Dioxide 20 mmol/L (22-29); Chloride 105 mmol/L (96-108); Estimated Glomerular Filt Rate > 60; Glucose Random 88 mg/dL (60-115); Lipase 33 U/L (8-78); Sodium 139 mmol/L (135-145); Total Protein 6.8 g/dL (6.5-8.0)
[2023-01-28] MEDS: methylPREDNISolone Sod Succ 125 MG/2 ML VIAL IVPUSH (02:55)
[2023-01-28 02:57] LABS: SLIDE REVIEW VERIFIED
[2023-01-28 02:58] LABS: Troponin-I High Sensitivity 3.7 ng/L (<3.5-17.0)
[2023-01-28] MEDS: Albuterol Sulfate (0.083%) 2.5 MG/3 ML VIAL.NEB 5 MG INHALE ×2 (04:23→05:22)
--- NOTE | 2023-01-28 07:09 | PC.NURSE ---
patient sleeping in stretcher, respirations equal and unlabored, patient shows no signs of distress. On 2l Nasal cannula
--- NOTE | 2023-01-28 07:58 | PHA.MEDREC ---
Pharmacy Consult ? Medication Reconciliation Pharmacy has completed the medication reconciliation. Patient was very difficult to arouse. Patient kept falling asleep mid interview, however, she did seem to be coherent.
--- NOTE | 2023-01-28 08:28 | PM.IMHP ---
History of Present Illness Date of Service: 01/28/23 Chief Complaint: SOB 52-year-old female with history of COPD /asthma, 1PPD cigarette smoker, diabetes, obesity, GERD, HTN, last hospitaization for copd in October of this year. She presents with shortness of breath, shortness of breath of several day duration, associated with some cough, no sputum production, has had wheeze, tachypnia, no fever but reports chills. WBC is 15, CXR show no acute finding. In ED treated with Nebs, and IV solumedrol O2 was 90 but now 99 Review of Systems Review of Systems: Gen: no fever Resp: + sob, + cough CV: no chest, no WANG, no leg edema GI: No n/v, no abd pain Neuro: No confusion Yes all other systems are reviewed and are negative [facility] Medical History Acute and chronic respiratory failure with hypercapnia Acute and chronic respiratory failure, unspecified whether with hypoxia or hypercapnia Acute and chronic respiratory failure, unspecified whether with hypoxia or hypercapnia Acute exacerbation of COPD with asthma Acute respiratory failure with hypoxia Asthma Bustos's esophagus Carpal tunnel syndrome of right wrist Chest discomfort Chronic idiopathic constipation Chronic renal failure, stage 2 (mild) Cocaine abuse Cocaine abuse COPD exacerbation Crack cocaine use Depression Diabetes mellitus Encounter for preoperative pulmonary examination Gastroparesis GERD (gastroesophageal reflux disease) Hernia High triglycerides HTN (hypertension) Hyperkalemia Knee pain, bilateral Leukocytosis Leukocytosis Metabolic acidosis Nausea & vomiting Obesity (BMI 30-39.9) Respiratory failure Rotator cuff tendonitis Smoker SOB (shortness of breath) UTI (urinary tract infection) Family History Father Heart disease HENRY (obstructive sleep apnea) Family history of breast cancer Mother Asthma Emphysema, unspecified Bronchitis Smoker Alcoholism Bone marrow disease Maternal Grandmother Diabetes Surgical History History of carpal tunnel release History of esophagogastroduodenoscopy (EGD) History of open reduction and internal fixation (ORIF) procedure History of pubovaginal sling History of umbilical hernia repair Hx of section Hx of cholecystectomy Hx of tubal ligation Social History Household Members: Family Household Members Other:: sister Housing: Apartment Are you a primary respiratory care program director to a significant other at home: No Do you presently have visiting nurse or other home services: Yes Unable to assess alcohol history related to: Unknown Alcohol intake: never Patient Tobacco Use Status: Current everyday Tobacco user Tobacco use type: Cigarette Cigarette Packs Per Day: 1 Cigarettes Per Day: 20.0 Years Smoked: 35 Smoked in Last 30 Days: Yes e-Cigarette/Vaping Use: Currently Using Second Hand Smoke Exposure: No Use of substances other than those prescribed or required for medical reasons: Yes Substance Use Type: Crack/Cocaine Substance Use Frequency: Occasionally Last Used Substance: Hours (ago) Advance Directives: No Advance Directives Information Provided: No Advance Directives Date on File: 04/15/20 Patient : No service: No Current occupational status: disabled 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 Meds Allergies Allergy/AdvReac Type Severity Reaction Status Date / Time doxycycline Allergy Severe Swelling Verified 01/21/23 22:23 varenicline [From CHANTIX] Allergy Severe ANAPHYLAXIS Verified 01/21/23 22:23 barium sulfate Allergy Intermediate angioedema Verified 01/21/23 22:23 azithromycin Allergy Mild Rash Verified 01/21/23 22:23 cetirizine Allergy Mild Rash Verified 01/21/23 22:23 famotidine Allergy Mild Rash Verified 01/21/23 22:23 linaclotide [Linzess] Allergy Mild Rash Verified 01/21/23 22:23 Active Medications: Current Medications Pharmacy Consult (Consult Rx Perform Med Rec) 1 each MISCELLANE ONCE PRN PRN Reason: Consult order Home Medications Medication Instructions Recorded Confirmed Last Taken Type furosemide 20 mg tablet 20 mg PO DAILY 11/05/22 01/28/23 11/04/22 History Physical Exam Vital Signs and Narrative: Vital Signs: Last Vital Signs Temp 98.5 F 01/28/23 02:41 Pulse 88 01/28/23 07:09 Resp 19 01/28/23 07:09 BP 127/74 01/28/23 07:09 Pulse Ox 90 L 01/28/23 07:09 O2 Del Method Room Air 01/28/23 07:09 Oxygen Flow Rate 2 01/28/23 02:41 BMI result Body Mass Index 37.2 Const: Other: General: AO X 3, no acute distress Resp: decrease air movment, no wheezes or accessory muscle use at this time. CVS: S1,S2,RRR GI: +BS, NT, no distention Skin: No rash Neuro: motor grossly intact Psych: appropriate affect Results Labs 01/28/23 02:33 01/28/23 02:33 Labs: Laboratory Results - last 24 hr 01/28/23 01/28/23 02:33 02:33 MCV 82.2 MCH 27.0 MCHC 32.9 RDW 16.0 Plt Count 387 MPV 9.5 Immature Gran % (Auto) 0.4 Neut % (Auto) 47.1 Lymph % (Auto) 42.9 H Branch % (Auto) 6.9 Eos % (Auto) 2.2 Baso % (Auto) 0.5 Lymph # (Auto) 6.5 H Branch # (Auto) 1.1 Eos # (Auto) 0.3 Baso # (Auto) 0.1 Abs Immat Gran (auto) 0.06 H Absolute Neuts (auto) 7.2 Absolute Nucleated RBC 0.000 Nucleated RBC % (auto) 0.0 Smear Tech's Comments VERIFIED Anion Gap 17 Estim Creat Clear Calc 85.0 Estimated GFR > 60 Random Glucose 88 Calcium 9.2 Total Bilirubin 0.2 AST 8 ALT 9 Alkaline Phosphatase 84 Total Protein 6.8 Albumin 4.2 Lipase 33 Imaging Radiologist's Impressions: Impressions Chest X-Ray 01/28/23 02:39 IMPRESSION: No acute pulmonary disease. Assessment and Plan (1) Acute exacerbation of chronic obstructive pulmonary disease (COPD): Status: Acute Plan 52/F with COPD/asthma, active smoker, DM, obesity, GERD, HTN, presented with sob and is being admitted for exacerbation of copd Acute exacerbation of COPD and severe persistent asthma with exacerbation -treat with IV corticosteroid, bronchodilators by Nebs, O2 PRN, smoking cessation discussed, check covid ?obesity -weight loss recommended via excercise and diet ?Diabetes on trulicity, can bring it from home, continue glipizide, SSI and if needed lantus ?basal bolus insulin, monitor POC ?hypertension, continue Losartan gerd--pepcid DVT prophyliaxis, lovenox obs till tomorow Time Spent With Patient Time: Total time managing care of this patient today ____ minutes. Quality Stroke Does the patient have a stroke diagnosis?: No VTE Prior VTE?: No VTE Risk Level:: Medical - moderate - high VTE Device Contraindication: Treatment Not Indicated VTE Drug Contraindication: N/A - Med Ordered
[2023-01-28] MEDS: Nicotine 21 MG PATCH.TD24 TRANSDERMA (09:14)
[2023-01-28] MEDS: Sertraline HCL 100 MG TABLET PO (09:15)
[2023-01-28] MEDS: Furosemide 20 MG TABLET PO (09:15)
[2023-01-28] MEDS: Dicyclomine HCl 10 MG CAPSULE 20 MG PO ×2 (09:15→12:41)
[2023-01-28] MEDS: Losartan Potassium 25 MG TABLET PO (09:15)
[2023-01-28] MEDS: Omeprazole 40 MG CAPSULE.DR PO (09:15)
[2023-01-28] MEDS: Theophylline Anhydrous ER 400 MG TAB.ER.24H PO (09:52)
[2023-01-28] MEDS: glipiZIDE 5 MG TABLET PO (09:52)
[2023-01-28] MEDS: Aspirin Enteric Coated 81 MG TABLET.DR PO (09:56)
[2023-01-28] MEDS: Albuterol Sulfate (0.083%) 2.5 MG/3 ML VIAL.NEB INHALE ×2 (11:05→15:40)
[2023-01-28 13:59] LABS: Glucose, Whole Blood 132 mg/dL (60-115)
--- NOTE | 2023-01-28 16:02 | P.DS_ITS ---
DS: Providers Provider Date of Service: 01/28/23 Date of admission: 01/28/23 08:49 Primary care physician: KATINA Lazcano DS: Diagnosis Discharge Diagnosis (1) Acute exacerbation of chronic obstructive pulmonary disease (COPD): Status: Acute DS: Summary Hospital Course Hospital Course: Patient was admitted for obsevervation within the last 8 hours for exacerbation of copd, she is doing much better feels better, no hypoxia at rest or with ambulation and would like to go home, will discharge with Prednisone 40 mg daily for total of 5 days of steroid, smoking cessation reinforced Time Spent with Patient Time attestation: Total time managing care of this patient today ____ minutes. Discharge coordination time: Less than 30 minutes Quality: Safe Use of Opioids Does Pt have an Active Cancer Diagnosis on the Problem List?: No Quality: Stroke Does the patient have a stroke diagnosis?: No Physical Exam Vital Signs: Vital Signs: Last Vital Signs Temp 98.7 F 01/28/23 12:47 Pulse 81 01/28/23 15:41 Resp 16 01/28/23 15:41 BP 101/62 01/28/23 12:47 Pulse Ox 96 01/28/23 12:47 O2 Del Method Room Air 01/28/23 12:47 O2 Flow Rate 2 01/28/23 08:34 Oxygen Flow Rate 2 01/28/23 02:41 BMI result Body Mass Index 37.2 DS: Data Data Completed and Pending Labs on day of discharge: Laboratory Results - last 24 hr 01/28/23 01/28/23 01/28/23 02:33 02:33 02:33 WBC 15.3 H RBC 5.18 Hgb 14.0 Hct 42.6 MCV 82.2 MCH 27.0 MCHC 32.9 RDW 16.0 Plt Count 387 MPV 9.5 Immature Gran % (Auto) 0.4 Neut % (Auto) 47.1 Lymph % (Auto) 42.9 H [place] % (Auto) 6.9 Eos % (Auto) 2.2 Baso % (Auto) 0.5 Lymph # (Auto) 6.5 H [place] # (Auto) 1.1 Eos # (Auto) 0.3 Baso # (Auto) 0.1 Abs Immat Gran (auto) 0.06 H Absolute Neuts (auto) 7.2 Absolute Nucleated RBC 0.000 Nucleated RBC % (auto) 0.0 Smear Tech's Comments VERIFIED Sodium 139 Potassium 3.0 L D Chloride 105 Carbon Dioxide 20 L Anion Gap 17 BUN 14 Creatinine 0.83 Estim Creat Clear Calc 85.0 Estimated GFR > 60 POC Glucose Random Glucose 88 Calcium 9.2 Total Bilirubin 0.2 AST 8 ALT 9 Alkaline Phosphatase 84 Troponin I High Sens 3.7 Total Protein 6.8 Albumin 4.2 Lipase 33 01/28/23 13:55 WBC RBC Hgb Hct MCV MCH MCHC RDW Plt Count MPV Immature Gran % (Auto) Neut % (Auto) Lymph % (Auto) [place] % (Auto) Eos % (Auto) Baso % (Auto) Lymph # (Auto) [place] # (Auto) Eos # (Auto) Baso # (Auto) Abs Immat Gran (auto) Absolute Neuts (auto) Absolute Nucleated RBC Nucleated RBC % (auto) Smear Tech's Comments Sodium Potassium Chloride Carbon Dioxide Anion Gap BUN Creatinine Estim Creat Clear Calc Estimated GFR POC Glucose 132 H Random Glucose Calcium Total Bilirubin AST ALT Alkaline Phosphatase Troponin I High Sens Total Protein Albumin Lipase Discharge Plan Discharge Anticipated Discharge Date/Time: 01/28/23 15:59 Patient Disposition: Home, Self-Care Referrals: Joe Hale, [facility]- [Primary Care Provider] - 1 Week Discharge Medications: New prednisone 20 mg tablet 40 mg PO DAILY Qty: 8 0RF Continued (DME) lancets [FreeStyle Lancets] 28 gauge misc See Rx Instructions .ROUTE .MEDSUPPLY Qty: 100 1RF Rx Instructions: Use to check blood sugar daily or if symptomatic hypo/hypergylcemia (DME) 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 meter [FreeStyle Lite Meter] Kit See Rx Instructions .ROUTE .MEDSUPPLY Qty: 1 0RF Rx Instructions: Use to check blood sugar daily or if symptomatic for hypo/hyperglycemia glipizide 5 mg tablet 5 mg PO DAILY 30 Days Qty: 30 4RF (DME) FreeStyle Lite Strips Strip See Rx Instructions .ROUTE .MEDSUPPLY Qty: 100 1RF Rx Instructions: Use to check blood sugar daily or if symptomatic hypo/hypergylcemia aspirin 81 mg tablet,delayed release (DR/EC) 81 mg PO DAILY 90 Days Qty: 90 1RF losartan 25 mg tablet 25 mg PO DAILY Qty: 90 1RF gabapentin 800 mg tablet 800 mg PO QID 30 Days Qty: 120 2RF theophylline 400 mg tablet extended release 24 hr 400 mg PO BID 90 Days Qty: 180 4RF tizanidine 4 mg tablet 4 mg PO Q8H PRN (Reason: muscle spasm) 30 Days Qty: 90 0RF sertraline 100 mg tablet 100 mg PO DAILY 30 Days Qty: 30 4RF acetaminophen 650 mg tablet extended release 650 mg PO Q12H PRN (Reason: pain) 30 Days Qty: 60 0RF Trulicity 0.75 mg/0.5 mL pen injector 0.75 mg subcut MO@1000 Qty: 2 0RF ibuprofen 800 mg tablet 800 mg PO BID PRN (Reason: pain) Qty: 60 0RF albuterol sulfate 90 mcg/actuation HFA aerosol inhaler 2 puff inhalation Q4-6H PRN (Reason: shortness of breath or wheezing) 90 Days Qty: 3 3RF furosemide 20 mg tablet 20 mg PO DAILY ipratropium bromide 0.02 % solution 2.5 ml inhalation Q6H PRN (Reason: shortness of breath or wheezing) 30 Days Qty: 225 6RF dexlansoprazole [Dexilant] 60 mg capsule,biphase delayed releas 60 mg PO DAILY 30 Days Qty: 30 6RF dicyclomine 20 mg tablet 20 mg PO QID 30 Days Qty: 120 1RF famotidine [Zantac-360 (famotidine)] 10 mg tablet 10 mg PO BEDTIME Qty: 90 0RF Discharge Orders: Discharge Order (Routine); Ordered 01/28/23 Ordered By: Oliverio Liriano Diet: Diabetic diet Activity on Discharge: As tolerated Stand Alone Forms: Patient Portal Discharge page Care Plan Goals: resolution of copd exacerbation Health Concerns: copd exacerbation Plan of Treatment: use inhalers and take prednisone as directed, follow up with your doctor in a week Assessment: as above
== END 2023-01-28 18:22 | disposition home or self-care (01) ==
LOC: HO.ED 05:15 → HO.EDOVER 08:56 → HO.S3 14:59 → HO.EDOVER 18:21
PROVIDERS: Admitting Provider Internal Medicine; Emergency Provider Emergency Medicine Emergency Medical Services; PCP Nurse Practitioner Family; Visit Provider Internal Medicine
DX: J44.1 Chronic obstructive pulmonary disease with (acute) exacerbation (principal); Z79.82 Long term (current) use of aspirin; Z79.899 Other long term (current) drug therapy; E11.22 Type 2 diabetes mellitus with diabetic chronic kidney disease; I12.9 Hypertensive chronic kidney disease with stage 1 through stage 4 chronic kidney disease, or unspecified chronic kidney disease; N18.2 Chronic kidney disease, stage 2 (mild); F17.210 Nicotine dependence, cigarettes, uncomplicated; E66.9 Obesity, unspecified; Z68.37 Body mass index [BMI] 37.0-37.9, adult; R06.82 Tachypnea, not elsewhere classified
CPT/HCPCS: 36415; 71045; 80053; 82947; 83690; 84484; 85025; 93005; 94640; 96374; 99221; 99285; J2930

== ENCOUNTER → 2023-01-28 03:07 | Outpatient (BNV) | payer OTHER, SELFPAY | PROVIDERS: Admitting Provider Internal Medicine; Emergency Provider Emergency Medicine Emergency Medical Services; PCP Nurse Practitioner Family; Visit Provider Internal Medicine | DX: I49.1 Atrial premature depolarization (principal); R94.31 Abnormal electrocardiogram [ECG] [EKG] | CPT/HCPCS: 93010 ==

== ENCOUNTER → 2023-01-28 03:30 | Outpatient (BNV) | payer OTHER, SELFPAY | PROVIDERS: Emergency Provider Emergency Medicine Emergency Medical Services; PCP Nurse Practitioner Family; Visit Provider Internal Medicine | DX: J44.1 Chronic obstructive pulmonary disease with (acute) exacerbation (principal) | CPT/HCPCS: 99236; 99499 ==

== ENCOUNTER 2023-03-04 13:51 | Emergency (ER) | payer OTHER, SELFPAY ==
--- NOTE | ~2023-03-04 | XR_ITS ---
EXAMINATION: XR CHEST CLINICAL INFORMATION: Chest pain COMPARISON: 01/28/2023 TECHNIQUE: Frontal view of the chest was obtained. FINDINGS: Normal heart size. Mild calcifications of the thoracic aorta. Lungs are clear without focal consolidation. No pleural effusion or pneumothorax. No acute osseous abnormality. Old healed left-sided rib fractures are again demonstrated. XR/XR chest 1V IMPRESSION: No acute disease within the chest.
--- NOTE | 2023-03-04 14:01 | ECG_ITS ---
Test Reason : CHEST PAIN Blood Pressure : / mmHG Vent. Rate : 120 BPM Atrial Rate : 120 BPM P-R Int : 138 ms QRS Dur : 088 ms QT Int : 326 ms P-R-T Axes : 076 135 048 degrees QTc Int : 460 ms Sinus tachycardia Possible Lateral infarct , age undetermined Possible Inferior infarct (cited on or before 01-OCT-2022) Right axis deviation Abnormal ECG When compared with ECG of 28-JAN-2023 03:07, Aberrant conduction is no longer Present Referred By: Kimberly Giordano Electronically Signed By:ROXANEN FENG
--- NOTE | 2023-03-04 14:02 | ED_ITS ---
HPI - General Adult General Chief complaint: Arrhythmia/Palpitations Stated complaint: CHEST PALPITATIONS X 1 HR Time Seen by Provider: 03/04/23 14:00 Source: patient and EMS Mode of arrival: EMS Limitations: other (Poor historian) History of Present Illness HPI narrative: 52-year-old female history of asthma, Bustos's esophagus, carpal tunnel, chronic renal failure stage 2, cocaine abuse, COPD, crack cocaine abuse, depression, diabetes, gastroparesis, GERD, hernia, high triglycerides, hypertension, current daily smoker presenting to the emergency department with complaints of palpitations, shortness of breath, chest discomfort present since this morning. Also reports some associated diaphoresis. Denies any drug use. Denies alcohol use. Denies fevers, chills, headache, vision changes, dizziness and weakness. Related Data Home Medications Medication Instructions Recorded Confirmed furosemide 20 mg tablet 20 mg PO DAILY 11/05/22 01/28/23 Previous Rx's Medication Instructions Recorded lancets 28 gauge (FreeStyle #100 ea 01/20/21 Lancets) 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 meter (FreeStyle #1 ea 03/01/22 Lite Meter kit) blood sugar diagnostic (FreeStyle #100 ea 09/16/22 Lite Strips) ipratropium bromide 0.02 % 2.5 ml inhalation Q6H PRN 09/27/22 solution for inhalation shortness of breath or wheezing 30 days #225 mL aspirin 81 mg tablet,delayed 81 mg PO DAILY 90 days #90 tabs 10/16/22 release losartan 25 mg tablet 25 mg PO DAILY #90 tabs 11/16/22 theophylline 400 mg 400 mg PO BID 90 days #180 tabs 12/24/22 tablet,extended release 24 hr sertraline 100 mg tablet 100 mg PO DAILY 30 days #30 tabs 01/09/23 acetaminophen 650 mg 650 mg PO Q12H PRN pain 30 days 01/14/23 tablet,extended release #60 tabs dexlansoprazole 60 mg 60 mg PO DAILY 30 days #30 caps 01/18/23 capsule,biphase delayed release (Dexilant) famotidine 10 mg tablet 10 mg PO BEDTIME #90 tabs 01/18/23 (Zantac-360 (famotidine)) albuterol sulfate 90 mcg/actuation 2 puff inhalation Q4-6H PRN 01/24/23 aerosol inhaler shortness of breath or wheezing 90 days #3 ea prednisone 20 mg tablet 40 mg PO DAILY #8 tabs 01/28/23 tizanidine 4 mg tablet 4 mg PO Q8H PRN muscle spasm 30 02/07/23 days #90 tabs dulaglutide 0.75 mg/0.5 mL 0.75 mg (0.5 mL) subcut MO@1000 #2 02/08/23 subcutaneous pen injector mL (Trulicity) ibuprofen 800 mg tablet 800 mg PO BID PRN pain #60 tabs 02/12/23 gabapentin 800 mg tablet 800 mg PO QID 30 days #120 tabs 02/26/23 dicyclomine 20 mg tablet 20 mg PO QID #120 tabs 02/27/23 glipizide 5 mg tablet 5 mg PO DAILY 90 days #90 tabs 02/28/23 Allergies Allergy/AdvReac Type Severity Reaction Status Date / Time doxycycline Allergy Severe Swelling Verified 01/21/23 22:23 varenicline [From CHANTIX] Allergy Severe ANAPHYLAXIS Verified 01/21/23 22:23 barium sulfate Allergy Intermediate angioedema Verified 01/21/23 22:23 azithromycin Allergy Mild Rash Verified 01/21/23 22:23 cetirizine Allergy Mild Rash Verified 01/21/23 22:23 famotidine Allergy Mild Rash Verified 01/21/23 22:23 linaclotide [Linzess] Allergy Mild Rash Verified 01/21/23 22:23 Review of Systems Review of Systems: Constitutional : No Weight loss, No Fever, No Chills, + Fatigue, + Malaise ENT/Mouth : No sore throat, No Rhinorrhea Eyes: No Eye Pain, No Swelling, No Redness Cardiovascular : + Chest Pain, + SOB, No Dyspnea on Exertion, No Orthopnea, No Edema, + Palpitations Respiratory : No Cough, No Sputum, No Wheezing Gastrointestinal : No Nausea, No Vomiting, No Diarrhea, No Constipation, No abdominal Pain, No Hematochezia, No Melena Genitourinary : No Dysuria, No Urinary Frequency, No Hematuria, Musculoskeletal : No joint pain, No Myalgias, No Joint Swelling Skin : No Skin Lesions, No rash Neuro : No Weakness, No Numbness, No Dizziness, No Headache Psych : No Anxiety/Panic, No Depression All other systems reviewed and are negative Yes all other systems are reviewed and are negative [facility] Past Medical History Attestation statement: The following information was validated with the patient. Source: old records reviewed and nursing notes reviewed Medical History Acute and chronic respiratory failure with hypercapnia Acute and chronic respiratory failure, unspecified whether with hypoxia or hypercapnia Acute and chronic respiratory failure, unspecified whether with hypoxia or hypercapnia Acute exacerbation of COPD with asthma Acute respiratory failure with hypoxia Asthma Bustos's esophagus Carpal tunnel syndrome of right wrist Chest discomfort Chronic idiopathic constipation Chronic renal failure, stage 2 (mild) Cocaine abuse Cocaine abuse COPD exacerbation Crack cocaine use Depression Diabetes mellitus Encounter for preoperative pulmonary examination Gastroparesis GERD (gastroesophageal reflux disease) Hernia High triglycerides HTN (hypertension) Hyperkalemia Knee pain, bilateral Leukocytosis Leukocytosis Metabolic acidosis Nausea & vomiting Obesity (BMI 30-39.9) Respiratory failure Rotator cuff tendonitis Smoker SOB (shortness of breath) UTI (urinary tract infection) Surgical History History of carpal tunnel release History of esophagogastroduodenoscopy (EGD) History of open reduction and internal fixation (ORIF) procedure History of pubovaginal sling History of umbilical hernia repair Hx of section Hx of cholecystectomy Hx of tubal ligation Family History Family History Father Heart disease HENRY (obstructive sleep apnea) Family history of breast cancer Mother Asthma Emphysema, unspecified Bronchitis Smoker Alcoholism Bone marrow disease Maternal Grandmother Diabetes Social History Social History Household Members: Family Household Members Other:: sister Housing: Apartment Are you a primary care process manager to a significant other at home: No Do you presently have visiting nurse or other home services: Yes Unable to assess alcohol history related to: Unknown Alcohol intake: never Patient Tobacco Use Status: Current everyday Tobacco user Tobacco use type: Cigarette Cigarette Packs Per Day: 1 Cigarettes Per Day: 20.0 Years Smoked: 35 Smoked in Last 30 Days: No e-Cigarette/Vaping Use: Currently Using Second Hand Smoke Exposure: No Substance Use Type: Crack/Cocaine Advance Directives: No Advance Directives Information Provided: No Advance Directives Date on File: 04/15/20 service: No Current occupational status: disabled 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 Oriented X3.? No acute distress.? Head: Normocephalic, atraumatic, no step-offs or deformities Eyes: Pupils equal, round and reactive to light.? Neck: Normal inspection.? Neck supple.? CVS: Normal heart rate and rhythm.? Pulses normal.? Respiratory: No respiratory distress.? Breath sounds normal.? Abdomen: Soft and nontender.? Skin: Skin warm and dry.? Normal skin color.? Normal skin turgor.? Extremities: No lower extremity edema.? No calf ttp. 5/5 strength to bilateral upper and lower extremities Neuro: Oriented X 3.? No motor deficit.? No sensory deficit. CN 2-12 intact Course Reevaluation(s) Reevaluation #1: CBC with chronic leukocytosis no acute findings I do not suspect infection. Chemistry with low potassium 2.8, IV potassium ordered. Troponin negative, EKG nonischemic unlikely ACS. BNP within normal limits. Patient's D-dimer negative. X-ray with no acute disease in the chest. Ethanol level negative. Has not given us a UA but now admits to cocaine use. Time: 15:30 Reevaluation #2: Patient given potassium, repeat potassium level pending. Repeat troponin pending. Time: 17:58 Reevaluation #3: Sign out to night provider Rakesh [employer] pending repeat labs and reeval Medications Administered Generic Name Dose Route Start Last Admin Trade Name Freq PRN Reason Stop Dose Admin Potassium Chloride 10 meq in 100 mls @ 100 mls/hr 03/04/23 15:30 03/04/23 17:01 Potassium Chloride/H20 IV 03/04/23 19:29 100 mls/hr Q1H [place] Administration Discontinued Medications Generic Name Dose Route Start Last Admin Trade Name Freq PRN Reason Stop Dose Admin Diphenhydramine HCl 50 mg 03/04/23 15:52 03/04/23 16:00 Diphenhydramine Hcl 50 Mg/Ml Vial IVPUSH 03/04/23 15:53 50 mg ONCE ONE Administration Lorazepam 1 mg 03/04/23 15:52 03/04/23 15:58 Lorazepam 2 Mg/Ml Vial IVPUSH 03/04/23 15:53 1 mg STAT STA Administration Medical Decision Making Medical Decision Making [facility] Narrative: 1404 52 yo female presents w/ cp, sob, palpiations and diaphoresis since this am PE patient very jittery, RRR, lungs clear, abd soft non tender non ditended This is likely cocaine abuse, will rule out electrolyte abnormalities. Will also rule out ethanol intoxication, polysubstance abuse. I do not suspect PE, ACS less likely. No signs of dissection. Unlikely pneumonia. Plan labs, imaging, urine Differential Diagnosis Differential Diagnoses: The differential diagnosis associated with the presentation includes This is likely cocaine abuse, will rule out electrolyte abnormalities. Will also rule out ethanol intoxication, polysubstance abuse. I do not suspect PE, ACS less likely. No signs of dissection. Unlikely pneumonia. Admission/Observation Consideration of admission/observation: Escalation of care including admission/observation considered unlikely Lab Data [facility] Lab Attestation statement: I reviewed the patient's lab results. 03/04/23 14:29 03/04/23 14:29 Labs: Lab Results 03/04/23 03/04/23 03/04/23 Range/Units 14:29 14:29 14:29 WBC 12.2 H (4.8-10.8) X10*3/uL RBC 4.78 (4.20-5.50) X10*6/uL Hgb 13.2 (12.0-16.0) g/dl Hct 39.8 (37.0-47.0) % MCV 83.3 (80.0-98.0) fL MCH 27.6 (27.0-33.0) pg MCHC 33.2 (31.0-35.0) g/dl RDW 15.8 (11.0-16.0) % Plt Count 450 H (160-400) X10*3/uL MPV 9.3 L (9.4-12.3) fL Immature Gran % (Auto) 0.2 (0.0-0.4) % Neut % (Auto) 63.3 (45-73) % Lymph % (Auto) 28.4 (20-40) % [place] % (Auto) 6.2 (2-11) % Eos % (Auto) 1.3 (0-4) % Baso % (Auto) 0.6 (0-2) % Lymph # (Auto) 3.5 (1.2-4.9) X10*3/uL [place] # (Auto) 0.8 (0.1-1.2) X10*3/uL Eos # (Auto) 0.2 (0.0-0.4) X10*3/uL Baso # (Auto) 0.1 (0.0-0.2) X10*3/uL Abs Immat Gran (auto) 0.03 (0.00-0.03) X10*3/uL Absolute Neuts (auto) 7.7 (2.0-8.3) x10*3/uL Absolute Nucleated RBC 0.000 (0.0-0.012) X10*3/uL Nucleated RBC % (auto) 0.0 (0.0-0.2) /100WBC D-Dimer High Sensitivty < 150 NG/ML Sodium 141 (135-145) mmol/L Potassium 2.8 L (3.3-5.1) mmol/L Chloride 106 (96-108) mmol/L Carbon Dioxide 21 L (22-29) mmol/L Anion Gap 17 (12-20) BUN 15 (9-16) mg/dL Creatinine 1.16 (0.5-1.4) mg/dL Estim Creat Clear Calc 53.0 Estimated GFR 49 Random Glucose 76 (60-115) mg/dL Calcium 10.2 D (8.4-10.2) mg/dL Magnesium 1.7 (1.6-2.6) mg/dL Total Bilirubin 0.2 (0.0-1.0) mg/dL AST 12 (5-31) U/L ALT 8 (0-31) U/L Alkaline Phosphatase 83 (39-117) U/L Troponin I High Sens (<3.5-17.0) ng/L B-Natriuretic Peptide (<100) pg/mL Total Protein 7.0 (6.5-8.0) g/dL Albumin 4.3 (3.5-5.0) g/dL Ethyl Alcohol < 10 mg/dL 03/04/23 03/04/23 Range/Units 14:29 14:29 WBC (4.8-10.8) X10*3/uL RBC (4.20-5.50) X10*6/uL Hgb (12.0-16.0) g/dl Hct (37.0-47.0) % MCV (80.0-98.0) fL MCH (27.0-33.0) pg MCHC (31.0-35.0) g/dl RDW (11.0-16.0) % Plt Count (160-400) X10*3/uL MPV (9.4-12.3) fL Immature Gran % (Auto) (0.0-0.4) % Neut % (Auto) (45-73) % Lymph % (Auto) (20-40) % [place] % (Auto) (2-11) % Eos % (Auto) (0-4) % Baso % (Auto) (0-2) % Lymph # (Auto) (1.2-4.9) X10*3/uL [place] # (Auto) (0.1-1.2) X10*3/uL Eos # (Auto) (0.0-0.4) X10*3/uL Baso # (Auto) (0.0-0.2) X10*3/uL Abs Immat Gran (auto) (0.00-0.03) X10*3/uL Absolute Neuts (auto) (2.0-8.3) x10*3/uL Absolute Nucleated RBC (0.0-0.012) X10*3/uL Nucleated RBC % (auto) (0.0-0.2) /100WBC D-Dimer High Sensitivty NG/ML Sodium (135-145) mmol/L Potassium (3.3-5.1) mmol/L Chloride (96-108) mmol/L Carbon Dioxide (22-29) mmol/L Anion Gap (12-20) BUN (9-16) mg/dL Creatinine (0.5-1.4) mg/dL Estim Creat Clear Calc Estimated GFR Random Glucose (60-115) mg/dL Calcium (8.4-10.2) mg/dL Magnesium (1.6-2.6) mg/dL Total Bilirubin (0.0-1.0) mg/dL AST (5-31) U/L ALT (0-31) U/L Alkaline Phosphatase (39-117) U/L Troponin I High Sens 4.0 (<3.5-17.0) ng/L B-Natriuretic Peptide 17 (<100) pg/mL Total Protein (6.5-8.0) g/dL Albumin (3.5-5.0) g/dL Ethyl Alcohol mg/dL Independent Interpretation I performed an independent interpretation of an: EKG (sinus tach no RADHA or inversions no signs of acute ischemia likely secondary to cocaine. ) and Plain X-Ray (XR/XR chest 1V IMPRESSION: No acute disease within the chest. ) Radiology Impression Discussion of test interpretation with radiology: I have reviewed the radiologist's reading. Core Measures AMI core measures followed: Yes Measure exclusions: not indicated Critical Care Time Critical Care Time Critical Care Time: No Discharge Plan Discharge Clinical Impression: Cocaine abuse, Chest discomfort, Palpitations, Acute hypokalemia Patient Disposition: Still a Patient Prescriptions: No Action (DME) lancets [FreeStyle Lancets] 28 gauge misc See Rx Instructions .ROUTE .MEDSUPPLY Qty: 100 1RF Rx Instructions: Use to check blood sugar daily or if symptomatic hypo/hypergylcemia (DME) 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 meter [FreeStyle Lite Meter] Kit See Rx Instructions .ROUTE .MEDSUPPLY Qty: 1 0RF Rx Instructions: Use to check blood sugar daily or if symptomatic for hypo/hyperglycemia (DME) FreeStyle Lite Strips Strip See Rx Instructions .ROUTE .MEDSUPPLY Qty: 100 1RF Rx Instructions: Use to check blood sugar daily or if symptomatic hypo/hypergylcemia aspirin 81 mg tablet,delayed release (DR/EC) 81 mg PO DAILY 90 Days Qty: 90 1RF losartan 25 mg tablet 25 mg PO DAILY Qty: 90 1RF theophylline 400 mg tablet extended release 24 hr 400 mg PO BID 90 Days Qty: 180 4RF sertraline 100 mg tablet 100 mg PO DAILY 30 Days Qty: 30 4RF acetaminophen 650 mg tablet extended release 650 mg PO Q12H PRN (Reason: pain) 30 Days Qty: 60 0RF albuterol sulfate 90 mcg/actuation HFA aerosol inhaler 2 puff inhalation Q4-6H PRN (Reason: shortness of breath or wheezing) 90 Days Qty: 3 3RF tizanidine 4 mg tablet 4 mg PO Q8H PRN (Reason: muscle spasm) 30 Days Qty: 90 0RF Trulicity 0.75 mg/0.5 mL pen injector 0.75 mg subcut MO@1000 Qty: 2 0RF ibuprofen 800 mg tablet 800 mg PO BID PRN (Reason: pain) Qty: 60 0RF gabapentin 800 mg tablet 800 mg PO QID 30 Days Qty: 120 0RF dicyclomine 20 mg tablet 20 mg PO QID Qty: 120 1RF glipizide 5 mg tablet 5 mg PO DAILY 90 Days Qty: 90 0RF furosemide 20 mg tablet 20 mg PO DAILY prednisone 20 mg tablet 40 mg PO DAILY Qty: 8 0RF ipratropium bromide 0.02 % solution 2.5 ml inhalation Q6H PRN (Reason: shortness of breath or wheezing) 30 Days Qty: 225 6RF dexlansoprazole [Dexilant] 60 mg capsule,biphase delayed releas 60 mg PO DAILY 30 Days Qty: 30 6RF famotidine [Zantac-360 (famotidine)] 10 mg tablet 10 mg PO BEDTIME Qty: 90 0RF
[2023-03-04 14:10] VITALS: BP 111/72; BP 114/70; PULSE 108; PULSE 90; RESP 24; TEMP 36.7; O2SAT 98; BMI 30.7
[2023-03-04 14:33] LABS: MANUAL DIFF FLAG NO
[2023-03-04 14:34] LABS: Basophils Absolute Auto 0.1 X10*3/uL (0.0-0.2); Basophils Percent Auto 0.6 % (0-2); Eosinophils Absolute Auto 0.2 X10*3/uL (0.0-0.4); Eosinophils Percent Auto 1.3 % (0-4); Hematocrit 39.8 % (37.0-47.0); Hemoglobin 13.2 g/dl (12.0-16.0); Imm Gran Abs Auto 0.03 X10*3/uL (0.00-0.03); Imm Gran Pct Auto 0.2 % (0.0-0.4); Lymphocytes Absolute Auto 3.5 X10*3/uL (1.2-4.9); Lymphocytes Percent Auto 28.4 % (20-40); Mean Corpuscular HGB Conc 33.2 g/dl (31.0-35.0); Mean Corpuscular Hemoglobin 27.6 pg (27.0-33.0); Mean Corpuscular Volume 83.3 fL (80.0-98.0); Mean Platelet Volume 9.3 fL (9.4-12.3); Monocytes Absolute Auto 0.8 X10*3/uL (0.1-1.2); Monocytes Percent Auto 6.2 % (2-11); Neutrophils Absolute Auto 7.7 x10*3/uL (2.0-8.3); Neutrophils Percent Auto 63.3 % (45-73); Platelet Count 450 X10*3/uL (160-400); Red Blood Count 4.78 X10*6/uL (4.20-5.50); Red Cell Distribution Width 15.8 % (11.0-16.0); White Blood Count 12.2 X10*3/uL (4.8-10.8)
[2023-03-04 14:41] LABS: D Dimer High Sensitivity < 150 NG/ML
[2023-03-04 15:08] LABS: Alanine Aminotransferase 8 U/L (0-31); Albumin Level 4.3 g/dL (3.5-5.0); Alkaline Phosphatase 83 U/L (39-117); Anion Gap 17 (12-20); Aspartate Amino Transferase 12 U/L (5-31); Bilirubin Total 0.2 mg/dL (0.0-1.0); Blood Urea Nitrogen 15 mg/dL (9-16); Calcium 10.2 mg/dL (8.4-10.2); Carbon Dioxide 21 mmol/L (22-29); Chloride 106 mmol/L (96-108); Estimated Glomerular Filt Rate 49; Ethanol < 10 mg/dL; Glucose Random 76 mg/dL (60-115); Magnesium 1.7 mg/dL (1.6-2.6); Potassium 2.8 mmol/L (3.3-5.1); Sodium 141 mmol/L (135-145)
[2023-03-04 15:14] LABS: B Type Natriuretic Peptide 17 pg/mL (<100)
--- NOTE | 2023-03-04 15:14 | PC.NURSE ---
pt comes in from EMS very twitchy and unable to control her extremities. HR in 90s-110s. pt reports that this has happened to her before though never this bad. EKG obtaines though image was obscured by pt moving arms and legs and twitching. Labs drawn and IV inserted. plan of care ongoing
[2023-03-04] MEDS: Potassium Chloride/H20 10 MEQ/100 ML PIGGYBACK 100 MEQ IV ×4 (15:28→20:44)
[2023-03-04] MEDS: LORazepam 2 MG/ML VIAL 1 MG IVPUSH (15:58)
[2023-03-04] MEDS: diphenhydrAMINE HCL 50 MG/ML VIAL IVPUSH (16:00)
[2023-03-04 16:57] VITALS: BP 168/89; PULSE 94; RESP 18; TEMP 36.4; O2SAT 100
--- NOTE | 2023-03-04 17:02 | PC.NURSE ---
potassium running via IV with NS, 100ml hr. Benadryl and ativan given per MAR to assist with pt care- pt very twitchy and unable to allow IV to run - thretaning to pull IV out. pt is calmer now and is sleeping. will ctm
[2023-03-04 19:02] LABS: Alanine Aminotransferase 7 U/L (0-31); Albumin Level 4.1 g/dL (3.5-5.0); Alkaline Phosphatase 85 U/L (39-117); Anion Gap 14 (12-20); Aspartate Amino Transferase 11 U/L (5-31); Bilirubin Total 0.2 mg/dL (0.0-1.0); Blood Urea Nitrogen 13 mg/dL (9-16); Carbon Dioxide 24 mmol/L (22-29); Chloride 106 mmol/L (96-108); Creatinine Clr Calc Pharmacy 64.7; Estimated Glomerular Filt Rate > 60; Glucose Random 75 mg/dL (60-115); Potassium 3.2 mmol/L (3.3-5.1); Sodium 141 mmol/L (135-145); Total Protein 6.9 g/dL (6.5-8.0)
[2023-03-04 19:08] LABS: Troponin-I High Sensitivity 4.8 ng/L (<3.5-17.0)
[2023-03-04 20:37] VITALS: BP 154/84; PULSE 103; RESP 16; O2SAT 93
[2023-03-04] MEDS: Potassium Chloride ER 20 MEQ TAB.ER.PRT 60 MEQ PO (20:45)
== END 2023-03-04 23:17 | disposition home or self-care (01) ==
PROVIDERS: Physician Assistant; Emergency Provider Emergency Medicine
DX: R07.89 Other chest pain (principal); F14.10 Cocaine abuse, uncomplicated; R06.02 Shortness of breath; E87.6 Hypokalemia; F17.210 Nicotine dependence, cigarettes, uncomplicated; Z79.899 Other long term (current) drug therapy; Z71.6 Tobacco abuse counseling
CPT/HCPCS: 36415; 71045; 80053; 80307; 83735; 83880; 84484; 85025; 85379; 93005; 96365; 96366; 96375; 99284; J1200; J2060

== ENCOUNTER 2023-03-19 22:04 | Emergency (ER) | payer OTHER, SELFPAY ==
--- NOTE | ~2023-03-19 | XR_ITS ---
EXAMINATION: XR CHEST CLINICAL INFORMATION: Pain COMPARISON: 03/04/2023 TECHNIQUE: 2 views of the chest were obtained. FINDINGS: Lung volumes are symmetric. No focal consolidation is seen. No evidence of pneumothorax, pleural effusion, or pulmonary edema. Cardiac size is within normal limits. Calcification is present at the aortic arch. No acute osseous findings are seen. XR/XR chest 2V IMPRESSION: No acute cardiopulmonary findings.
--- NOTE | 2023-03-19 22:13 | ECG_ITS ---
Test Reason : CHEST PAIN Blood Pressure : / mmHG Vent. Rate : 089 BPM Atrial Rate : 089 BPM P-R Int : 112 ms QRS Dur : 082 ms QT Int : 358 ms P-R-T Axes : 042 140 053 degrees QTc Int : 435 ms Sinus rhythm with Premature atrial complexes Right axis deviation Pulmonary disease pattern Inferior infarct (cited on or before 01-OCT-2022) Abnormal ECG When compared with ECG of 04-MAR-2023 14:14, Premature atrial complexes are now Present Heart rate has decreased Referred By: Dominic العلي Electronically Signed By:ROXANNE FENG
[2023-03-19 22:16] VITALS: BP 102/64; PULSE 70; O2SAT 97; BMI 25.0
[2023-03-19 22:22] VITALS: BP 134/73; PULSE 86; RESP 18; TEMP 36.7; O2SAT 93
--- NOTE | 2023-03-19 22:23 | ED_ITS ---
HPI - General Adult General Chief complaint: Dyspnea Stated complaint: sob Time Seen by Provider: 03/19/23 22:08 Source: patient, RN notes reviewed and old records reviewed Mode of arrival: EMS Limitations: no limitations History of Present Illness HPI narrative: 52-year-old female with past medical history significant for COPD, O2 dependent, obesity, osteoarthritis, obstructive sleep apnea, GERD presents for evaluation of shortness of breath. Patient reports that starting just a few hours prior to arrival she developed ?pain with taking a deep breath in. ? She reports associated shortness of breath and wheezing Denies any fevers, chills She reports her daughter tested positive for COVID-19 two or three weeks ago but the patient reports that she was not around her daughter. Patient reports that she has been using nebulizers with minimal improvement She states that she has not been on steroids or antibiotics for a few months Related Data Home Medications Medication Instructions Recorded Confirmed furosemide 20 mg tablet 20 mg PO DAILY 11/05/22 01/28/23 Previous Rx's Medication Instructions Recorded lancets 28 gauge (FreeStyle #100 ea 01/20/21 Lancets) 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 meter (FreeStyle #1 ea 03/01/22 Lite Meter kit) blood sugar diagnostic (FreeStyle #100 ea 09/16/22 Lite Strips) ipratropium bromide 0.02 % 2.5 ml inhalation Q6H PRN 09/27/22 solution for inhalation shortness of breath or wheezing 30 days #225 mL aspirin 81 mg tablet,delayed 81 mg PO DAILY 90 days #90 tabs 10/16/22 release losartan 25 mg tablet 25 mg PO DAILY #90 tabs 11/16/22 theophylline 400 mg 400 mg PO BID 90 days #180 tabs 12/24/22 tablet,extended release 24 hr sertraline 100 mg tablet 100 mg PO DAILY 30 days #30 tabs 01/09/23 dexlansoprazole 60 mg 60 mg PO DAILY 30 days #30 caps 01/18/23 capsule,biphase delayed release (Dexilant) famotidine 10 mg tablet 10 mg PO BEDTIME #90 tabs 01/18/23 (Zantac-360 (famotidine)) albuterol sulfate 90 mcg/actuation 2 puff inhalation Q4-6H PRN 01/24/23 aerosol inhaler shortness of breath or wheezing 90 days #3 ea prednisone 20 mg tablet 40 mg (2 x 20 mg) PO DAILY #8 tabs 01/28/23 ibuprofen 800 mg tablet 800 mg PO BID PRN pain #60 tabs 02/12/23 gabapentin 800 mg tablet 800 mg PO QID 30 days #120 tabs 02/26/23 dicyclomine 20 mg tablet 20 mg PO QID #120 tabs 02/27/23 glipizide 5 mg tablet 5 mg PO DAILY 90 days #90 tabs 02/28/23 acetaminophen 650 mg 650 mg PO Q12H PRN pain 30 days 03/16/23 tablet,extended release #60 tabs dulaglutide 0.75 mg/0.5 mL 0.75 mg (0.5 mL) subcut MO@1000 #2 03/16/23 subcutaneous pen injector mL ([facility]) tizanidine 4 mg tablet 4 mg PO Q8H PRN muscle spasm 30 03/16/23 days #90 tabs prednisone 20 mg tablet 40 mg (2 x 20 mg) PO DAILY #10 tabs 03/20/23 Allergies Allergy/AdvReac Type Severity Reaction Status Date / Time doxycycline Allergy Severe Swelling Verified 01/21/23 22:23 varenicline [From CHANTIX] Allergy Severe ANAPHYLAXIS Verified 01/21/23 22:23 barium sulfate Allergy Intermediate angioedema Verified 01/21/23 22:23 azithromycin Allergy Mild Rash Verified 01/21/23 22:23 cetirizine Allergy Mild Rash Verified 01/21/23 22:23 famotidine Allergy Mild Rash Verified 01/21/23 22:23 linaclotide [Linzess] Allergy Mild Rash Verified 01/21/23 22:23 Review of Systems 2 Constitutional: Constitutional: Denies chills, Denies fever(s), Denies headache(s) and Denies weakness ENT: Denies headache(s) Cardiovascular: Cardiovascular: Denies chest pain, Denies leg edema and Reports dyspnea Respiratory: Respiratory: Reports pain on inspiration, Reports dyspnea and Reports wheezing Gastrointestinal: Gastrointestinal: Denies abdominal pain, Denies nausea and Denies vomiting Musculoskeletal: Musculoskeletal: Denies back pain Neurologic: Denies headache(s) and Denies weakness Allergic/Immunologic: Allergic/Immunologic: Reports wheezing PMFSH Past Medical History Medical History Acute and chronic respiratory failure with hypercapnia Acute and chronic respiratory failure, unspecified whether with hypoxia or hypercapnia Acute and chronic respiratory failure, unspecified whether with hypoxia or hypercapnia Acute exacerbation of COPD with asthma Acute respiratory failure with hypoxia Asthma Bustos's esophagus Carpal tunnel syndrome of right wrist Chest discomfort Chronic idiopathic constipation Chronic renal failure, stage 2 (mild) Cocaine abuse Cocaine abuse COPD exacerbation Crack cocaine use Depression Diabetes mellitus Encounter for preoperative pulmonary examination Gastroparesis GERD (gastroesophageal reflux disease) Hernia High triglycerides HTN (hypertension) Hyperkalemia Knee pain, bilateral Leukocytosis Leukocytosis Metabolic acidosis Nausea & vomiting Obesity (BMI 30-39.9) Respiratory failure Rotator cuff tendonitis Smoker SOB (shortness of breath) UTI (urinary tract infection) Surgical History History of carpal tunnel release History of esophagogastroduodenoscopy (EGD) History of open reduction and internal fixation (ORIF) procedure History of pubovaginal sling History of umbilical hernia repair Hx of section Hx of cholecystectomy Hx of tubal ligation Family History Family History Father Heart disease HENRY (obstructive sleep apnea) Family history of breast cancer Mother Asthma Emphysema, unspecified Bronchitis Smoker Alcoholism Bone marrow disease Maternal Grandmother Diabetes Social History Social History Household Members: Family Household Members Other:: sister Housing: Apartment Are you a primary health care manager to a significant other at home: No Do you presently have visiting nurse or other home services: Yes Unable to assess alcohol history related to: Unknown Alcohol intake: never Patient Tobacco Use Status: Current everyday Tobacco user Tobacco use type: Cigarette Cigarette Packs Per Day: 1 Cigarettes Per Day: 20.0 Years Smoked: 35 Smoked in Last 30 Days: Yes e-Cigarette/Vaping Use: Currently Using Second Hand Smoke Exposure: No Use of substances other than those prescribed or required for medical reasons: Yes Substance Use Type: Crack/Cocaine Substance Use Frequency: Chronic Longstanding Advance Directives: No Advance Directives Information Provided: No Advance Directives Date on File: 04/15/20 Patient : No service: No Current occupational status: disabled 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 Physical Exam ED Vital Signs: Vital Signs - 24 hr 03/19/23 22:22 03/19/23 23:01 03/19/23 23:41 Temperature 98.1 F 97.6 F Pulse Rate 86 86 89 Respiratory Rate 18 16 17 Blood Pressure 134/73 126/61 Pulse Oximetry 93 95 Oxygen Delivery Method Room Air Room Air BMI result Body Mass Index 25.0 Const General: healthy appearing, comfortable, no acute distress, alert and awake Nutritional Appearance: well nourished Orientation/consciousness: patient oriented x3 HENMT Head: Yes normocephalic and Yes atraumatic Throat: Yes posterior oropharynx normal Eyes Eyelids: Yes eyelids normal Conjunctivae: conjunctivae normal Sclerae: sclerae normal Corneas: corneas normal Pupils: Equal, round and reactive pupils present EOM: EOMs intact bilaterally Neck Neck: Yes full ROM Resp Other: Diminished breath sounds bilaterally with minimal wheezing in the bilateral bases Effort & Inspection: normal respiratory effort, able to speak in complete sentences and not labored Cardio Other: No lower extremity edema Rate: regular rate Rhythm: regular rhythm Skin General skin exam: elasticity normal Neuro General: patient oriented x3 Cranial nerves: Yes Equal, round and reactive pupils present and Yes Bilaterally intact EOM present Cognition (Neuro): normal cognition Extrem Other: Moving all extremities well without any obvious deformities Course Reevaluation(s) Reevaluation #1: Patient re-evaluated, she reports feeling much better after breathing treatment. He likely has a mild COPD exacerbation, will give her a short course of prednisone Time: 01:29 Medications Administered Discontinued Medications Generic Name Dose Route Start Last Admin Trade Name Freq PRN Reason Stop Dose Admin Albuterol Sulfate 2.5 mg/ 5 mg 03/19/23 22:55 03/19/23 23:12 Albuterol Sulfate 2.5 mg INHALE 03/19/23 22:56 5 mg ONCE ONE Administration Medical Decision Making Medical Decision Making MDM Narrative: 52-year-old female presents for evaluation of shortness of breath and pain with inspiration. She has a long history of COPD. On exam she has mild wheezing in the bilateral basal mostly diminished which may be partially related to body habitus. Plan for chest x-ray, COVID swab. A D-dimer was ordered. The patient has had multiple recent CT scans the chest within the last year but none with IV contrast/angiography. Differential Diagnosis Differential Diagnoses: The differential diagnosis associated with the presentation includes COPD exacerbation Upper respiratory infection Viral syndrome Pneumonia COVID-19 CHF less likely PE Lab Data [facility] Lab Attestation statement: I reviewed the patient's lab results. Mild leukocytosis with a white count of 12.0 1000, no significant anemia. Normal platelet count. No electrolyte abnormalities. 03/19/23 22:42 03/19/23 22:42 Labs: Lab Results 03/19/23 03/19/23 03/19/23 Range/Units 22:41 22:42 22:52 WBC 12.0 H (4.8-10.8) X10*3/uL RBC 4.69 (4.20-5.50) X10*6/uL Hgb 12.9 (12.0-16.0) g/dl Hct 39.1 (37.0-47.0) % MCV 83.4 (80.0-98.0) fL MCH 27.5 (27.0-33.0) pg MCHC 33.0 (31.0-35.0) g/dl RDW 15.3 (11.0-16.0) % Plt Count 351 (160-400) X10*3/uL MPV 9.2 L (9.4-12.3) fL Immature Gran % (Auto) 0.2 (0.0-0.4) % Neut % (Auto) 57.6 (45-73) % Lymph % (Auto) 31.4 (20-40) % [place] % (Auto) 6.7 (2-11) % Eos % (Auto) 3.7 (0-4) % Baso % (Auto) 0.4 (0-2) % Lymph # (Auto) 3.8 (1.2-4.9) X10*3/uL [place] # (Auto) 0.8 (0.1-1.2) X10*3/uL Eos # (Auto) 0.4 (0.0-0.4) X10*3/uL Baso # (Auto) 0.1 (0.0-0.2) X10*3/uL Abs Immat Gran (auto) 0.02 (0.00-0.03) X10*3/uL Absolute Neuts (auto) 6.9 (2.0-8.3) x10*3/uL Absolute Nucleated RBC 0.000 (0.0-0.012) X10*3/uL Nucleated RBC % (auto) 0.0 (0.0-0.2) /100WBC PT 11.0 L (11.1-13.3) SEC INR 0.9 (0.9-1.1) APTT 31.8 (26.0-36.4) SEC D-Dimer High Sensitivty < 150 NG/ML Sodium 140 (135-145) mmol/L Potassium 3.5 (3.3-5.1) mmol/L Chloride 105 (96-108) mmol/L Carbon Dioxide 23 (22-29) mmol/L Anion Gap 16 (12-20) BUN 16 (9-16) mg/dL Creatinine 0.88 (0.5-1.4) mg/dL Estim Creat Clear Calc 65.7 Estimated GFR > 60 Random Glucose 116 H (60-115) mg/dL Calcium 9.1 (8.4-10.2) mg/dL Magnesium 1.7 (1.6-2.6) mg/dL Total Bilirubin 0.1 (0.0-1.0) mg/dL AST 9 (5-31) U/L ALT 7 (0-31) U/L Alkaline Phosphatase 101 (39-117) U/L Troponin I High Sens 3.8 (<3.5-17.0) ng/L B-Natriuretic Peptide 28 (<100) pg/mL Total Protein 6.8 (6.5-8.0) g/dL Albumin 3.8 (3.5-5.0) g/dL Lipase 35 (8-78) U/L Urine Color Yellow Urine Appearance Clear Urine pH 5.5 (5.0-9.0) Ur Specific [place] 1.020 (1.005-1.025) Urine Protein Negative (Neg-Trace) mg/dL Urine Glucose (UA) Negative (Negative) mg/dL Urine Ketones Negative (Negative) mg/dL Urine Blood Negative (Negative) Urine Nitrite Negative (Negative) Ur Leukocyte Esterase Trace H (Negative) Urine RBC 0-2 (0-2) /HPF Urine WBC 0-5 (0-5) /HPF Ur Squamous Epith Cells 3-5 (0-2) /HPF Urine Bacteria Trace (None Seen) Hyaline Casts 0-2 (0-2) /LPF Influenza Type A (PCR) NEGATIVE (Negative) Influenza Type B (PCR) NEGATIVE (Negative) RSV RNA Qual (PCR) NEGATIVE (Negative) SARS-CoV-2 RNA (RT-PCR) NEGATIVE (Negative) Independent Interpretation I performed an independent interpretation of an: EKG (Sinus rhythm with a rate of 89 beats per minute. Nonischemic EKG) and Plain X-Ray (No acute infiltrates Overlying cardiac leads noted) Radiology Impression Discussion of test interpretation with radiology: I have reviewed the radiologist's reading. (No acute pathology) Discharge Plan Discharge Clinical Impression: COPD (chronic obstructive pulmonary disease) Patient Disposition: Home, Self-Care Instructions: COPD (Chronic Obstructive Pulmonary Disease) (ED) Additional Instructions: Your workup in the emergency department today was reassuring This includes your chest x-ray, EKG, labs, flu and COVID swabs You likely have mild COPD exacerbation Continue nebulizers as prescribed Take prednisone 40 mg daily Prescriptions: New prednisone 20 mg tablet 40 mg PO DAILY Qty: 10 0RF No Action (DME) lancets [FreeStyle Lancets] 28 gauge misc See Rx Instructions .ROUTE .MEDSUPPLY Qty: 100 1RF Rx Instructions: Use to check blood sugar daily or if symptomatic hypo/hypergylcemia (DME) 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 meter [FreeStyle Lite Meter] Kit See Rx Instructions .ROUTE .MEDSUPPLY Qty: 1 0RF Rx Instructions: Use to check blood sugar daily or if symptomatic for hypo/hyperglycemia (DME) FreeStyle Lite Strips Strip See Rx Instructions .ROUTE .MEDSUPPLY Qty: 100 1RF Rx Instructions: Use to check blood sugar daily or if symptomatic hypo/hypergylcemia aspirin 81 mg tablet,delayed release (DR/EC) 81 mg PO DAILY 90 Days Qty: 90 1RF losartan 25 mg tablet 25 mg PO DAILY Qty: 90 1RF theophylline 400 mg tablet extended release 24 hr 400 mg PO BID 90 Days Qty: 180 4RF sertraline 100 mg tablet 100 mg PO DAILY 30 Days Qty: 30 4RF albuterol sulfate 90 mcg/actuation HFA aerosol inhaler 2 puff inhalation Q4-6H PRN (Reason: shortness of breath or wheezing) 90 Days Qty: 3 3RF ibuprofen 800 mg tablet 800 mg PO BID PRN (Reason: pain) Qty: 60 0RF gabapentin 800 mg tablet 800 mg PO QID 30 Days Qty: 120 0RF dicyclomine 20 mg tablet 20 mg PO QID Qty: 120 1RF glipizide 5 mg tablet 5 mg PO DAILY 90 Days Qty: 90 0RF acetaminophen 650 mg tablet extended release 650 mg PO Q12H PRN (Reason: pain) 30 Days Qty: 60 0RF tizanidine 4 mg tablet 4 mg PO Q8H PRN (Reason: muscle spasm) 30 Days Qty: 90 0RF Trulicity 0.75 mg/0.5 mL pen injector 0.75 mg subcut MO@1000 Qty: 2 0RF furosemide 20 mg tablet 20 mg PO DAILY prednisone 20 mg tablet 40 mg PO DAILY Qty: 8 0RF ipratropium bromide 0.02 % solution 2.5 ml inhalation Q6H PRN (Reason: shortness of breath or wheezing) 30 Days Qty: 225 6RF dexlansoprazole [Dexilant] 60 mg capsule,biphase delayed releas 60 mg PO DAILY 30 Days Qty: 30 6RF famotidine [Zantac-360 (famotidine)] 10 mg tablet 10 mg PO BEDTIME Qty: 90 0RF
[2023-03-19 22:46] LABS: MANUAL DIFF FLAG NO
[2023-03-19 22:48] LABS: Basophils Absolute Auto 0.1 X10*3/uL (0.0-0.2); Basophils Percent Auto 0.4 % (0-2); Eosinophils Absolute Auto 0.4 X10*3/uL (0.0-0.4); Eosinophils Percent Auto 3.7 % (0-4); Hematocrit 39.1 % (37.0-47.0); Hemoglobin 12.9 g/dl (12.0-16.0); Imm Gran Abs Auto 0.02 X10*3/uL (0.00-0.03); Imm Gran Pct Auto 0.2 % (0.0-0.4); Lymphocytes Absolute Auto 3.8 X10*3/uL (1.2-4.9); Lymphocytes Percent Auto 31.4 % (20-40); Mean Corpuscular Hemoglobin 27.5 pg (27.0-33.0); Mean Corpuscular Volume 83.4 fL (80.0-98.0); Mean Platelet Volume 9.2 fL (9.4-12.3); Monocytes Absolute Auto 0.8 X10*3/uL (0.1-1.2); Monocytes Percent Auto 6.7 % (2-11); Neutrophils Absolute Auto 6.9 x10*3/uL (2.0-8.3); Neutrophils Percent Auto 57.6 % (45-73); Platelet Count 351 X10*3/uL (160-400); Red Blood Count 4.69 X10*6/uL (4.20-5.50); Red Cell Distribution Width 15.3 % (11.0-16.0)
[2023-03-19 22:54] LABS: INTERNATIONAL NORM RATIO 0.9 (0.9-1.1)
[2023-03-19 22:56] LABS: Partial Thromboplastin Time 31.8 SEC (26.0-36.4)
[2023-03-19 23:00] LABS: Appearance Urine Clear; Color Urine Yellow; Glucose Urine UA Negative (Negative); Leukocyte Esterase Urine Trace (Negative); Nitrite Urine Negative (Negative); PH 5.5 (5.0-9.0); UMIC TRIGGER UACC YES; Urine Blood Negative (Negative); Urine Ketones Negative (Negative); Urine Protein Negative (Neg-Trace)
[2023-03-19 23:01] VITALS: PULSE 86; RESP 16; O2SAT 97
[2023-03-19 23:02] LABS: Alanine Aminotransferase 7 U/L (0-31); Albumin Level 3.8 g/dL (3.5-5.0); Alkaline Phosphatase 101 U/L (39-117); Anion Gap 16 (12-20); Aspartate Amino Transferase 9 U/L (5-31); Bilirubin Total 0.1 mg/dL (0.0-1.0); Blood Urea Nitrogen 16 mg/dL (9-16); Calcium 9.1 mg/dL (8.4-10.2); Carbon Dioxide 23 mmol/L (22-29); Chloride 105 mmol/L (96-108); Creatinine Clr Calc Pharmacy 65.7; Estimated Glomerular Filt Rate > 60; Glucose Random 116 mg/dL (60-115); Lipase 35 U/L (8-78); Magnesium 1.7 mg/dL (1.6-2.6); Potassium 3.5 mmol/L (3.3-5.1); Sodium 140 mmol/L (135-145); Total Protein 6.8 g/dL (6.5-8.0)
[2023-03-19 23:02] LABS: Bacteria Urine Trace (None Seen); Hyaline Casts Urine 0-2 /LPF (0-2); RBC Urine 0-2 /HPF (0-2); WBC Urine 0-5 /HPF (0-5)
[2023-03-19 23:05] LABS: D Dimer High Sensitivity < 150 NG/ML
[2023-03-19 23:08] LABS: B Type Natriuretic Peptide 28 pg/mL (<100)
[2023-03-19 23:09] LABS: Troponin-I High Sensitivity 3.8 ng/L (<3.5-17.0)
[2023-03-19] MEDS: Albuterol Sulfate 2.5 MG, Albuterol Sulfate (0.083%) 2.5 MG 5 MG INHALE (23:12)
[2023-03-19 23:26] LABS: Influenza A PCR NEGATIVE (Negative); Influenza B PCR NEGATIVE (Negative); Resp Syncy Virus RNA Qual PCR NEGATIVE (Negative); SARS COV2 PCR INHOUSE NEGATIVE (Negative)
[2023-03-19 23:41] VITALS: BP 126/61; PULSE 89; RESP 17; TEMP 36.4; O2SAT 95
[2023-03-20 01:44] VITALS: BP 137/86; PULSE 95; RESP 17
== END 2023-03-20 02:03 | disposition home or self-care (01) ==
PROVIDERS: Physician Assistant; Emergency Provider Student in an Organized Health Care Education/Training Program
DX: J44.9 Chronic obstructive pulmonary disease, unspecified (principal); R06.02 Shortness of breath; Z20.822 Contact with and (suspected) exposure to COVID-19; Z20.828 Contact with and (suspected) exposure to other viral communicable diseases; E11.9 Type 2 diabetes mellitus without complications; I10 Essential (primary) hypertension; F17.210 Nicotine dependence, cigarettes, uncomplicated; Z99.81 Dependence on supplemental oxygen; Z79.82 Long term (current) use of aspirin; Z79.85 Long-term (current) use of injectable non-insulin antidiabetic drugs; Z79.899 Other long term (current) drug therapy
CPT/HCPCS: 0241U; 36415; 71046; 80053; 81001; 83690; 83735; 83880; 84484; 85025; 85379; 85610; 85730; 93005; 94640; 99284; 99285

== ENCOUNTER 2023-06-01 12:01 | Inpatient (IN) | payer OTHER, SELFPAY ==
[2023-06-01] VITALS (20 sets, daily range): BP systolic 87–137; BP diastolic 45–91; PULSE 80–122; RESP 18–28; TEMP 36.2–37; O2SAT 2–110; BMI 33.4; BMI 31.1
--- NOTE | ~2023-06-01 | XR_ITS ---
EXAMINATION: XR CHEST CLINICAL INFORMATION: Shortness of breath COMPARISON: Chest x-ray on 03/19/2023 TECHNIQUE: Frontal view of the chest was obtained. FINDINGS: The cardiac silhouette is normal. There is mild diffuse bronchial wall thickening. There are no areas of consolidation. There are no pleural effusions or pneumothoraces. The bones and soft tissues are unremarkable for the patient's age. XR/XR chest 1V IMPRESSION: Bronchial wall thickening may be infectious and/or inflammatory in etiology.
--- NOTE | 2023-06-01 12:43 | ECG_ITS ---
Test Reason : CHEST PAIN Blood Pressure : / mmHG Vent. Rate : 089 BPM Atrial Rate : 089 BPM P-R Int : 112 ms QRS Dur : 088 ms QT Int : 368 ms P-R-T Axes : 031 113 066 degrees QTc Int : 447 ms Sinus rhythm with Premature atrial complexes Right axis deviation Abnormal ECG When compared with ECG of 19-MAR-2023 22:17, No significant change was found Referred By: Lauro Bolanos Electronically Signed By:PAUL VARGAS MD
--- NOTE | 2023-06-01 12:46 | ED_ITS ---
HPI - URI/Sore Throat General Chief Complaint: Upper Respiratory Symptoms Stated Complaint: DIFF BREATHING, CHEST PAIN, COUGH Time Seen by Provider: 06/01/23 12:35 Source: patient Mode of arrival: EMS Limitations: no limitations History of Present Illness HPI Narrative: Is a 53 years old female with the history of COPD presented to the emergency department the in respiratory distress brought by the aoc director combat plans officer she was given a DuoNeb on route she is still wheezing at this time. She states the symptoms started about a couple of days ago. She has been she states she has been hospitalized is in intubated for COPD exacerbation in the past MD elicited complaint: cough Pertinent past history: COPD Onset (ago): day(s) (2) Consistency: constant Severity: severe Description of mucous: clear Able to tolerate fluids by mouth: Yes Exacerbating factors: nothing Related Data Previous Rx's Medication Instructions Recorded lancets 28 gauge (FreeStyle #100 ea 01/20/21 Lancets) 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 meter (FreeStyle #1 ea 03/01/22 Lite Meter kit) blood sugar diagnostic (FreeStyle #100 ea 09/16/22 Lite Strips) losartan 25 mg tablet 25 mg PO DAILY #90 tabs 11/16/22 theophylline 400 mg 400 mg PO BID 90 days #180 tabs 12/24/22 tablet,extended release 24 hr dicyclomine 20 mg tablet 20 mg PO QID #120 tabs 02/27/23 sertraline 100 mg tablet 100 mg PO DAILY 30 days #30 tabs 03/20/23 ibuprofen 800 mg tablet 800 mg PO BID PRN pain #60 tabs 04/20/23 dexlansoprazole 60 mg 60 mg PO DAILY 30 days #30 caps 04/22/23 capsule,biphase delayed release (Dexilant) famotidine 10 mg tablet 10 mg PO BEDTIME #90 tabs 04/22/23 (Zantac-360 (famotidine)) albuterol sulfate 90 mcg/actuation 2 puff inhalation Q4-6H PRN 04/23/23 aerosol inhaler shortness of breath or wheezing 90 days #3 ea furosemide 20 mg tablet 20 mg PO DAILY 30 days #30 tabs 04/23/23 lubiprostone 24 mcg capsule 24 mcg PO BID 30 days #60 caps 04/24/23 (Amitiza) ipratropium bromide 0.02 % 2.5 ml inhalation Q6H PRN for 04/25/23 solution for inhalation wheezing 30 days #187.5 mL dulaglutide 0.75 mg/0.5 mL 0.75 mg (0.5 mL) subcut MO@1000 #6 05/12/23 subcutaneous pen injector mL (Trulicity) aspirin 81 mg tablet,delayed 81 mg PO DAILY 90 days #90 tabs 05/26/23 release gabapentin 800 mg tablet 800 mg PO QID 30 days #120 tabs 05/27/23 glipizide 5 mg tablet 5 mg PO DAILY 90 days #90 tabs 05/27/23 tizanidine 4 mg tablet 4 mg PO Q8H PRN muscle spasm 30 05/27/23 days #90 tabs prednisone 20 mg tablet 40 mg (2 x 20 mg) PO DAILY #10 tabs 05/29/23 acetaminophen 650 mg 650 mg PO Q12H PRN pain 30 days 05/30/23 tablet,extended release #60 tabs Allergies Allergy/AdvReac Type Severity Reaction Status Date / Time doxycycline Allergy Severe Swelling Verified 01/21/23 22:23 varenicline [From CHANTIX] Allergy Severe ANAPHYLAXIS Verified 01/21/23 22:23 barium sulfate Allergy Intermediate angioedema Verified 01/21/23 22:23 azithromycin Allergy Mild Rash Verified 01/21/23 22:23 cetirizine Allergy Mild Rash Verified 01/21/23 22:23 famotidine Allergy Mild Rash Verified 01/21/23 22:23 linaclotide [Linzess] Allergy Mild Rash Verified 01/21/23 22:23 Review of Systems 2 Constitutional: Constitutional: Reports no additional constitutional complaints Cardiovascular: Cardiovascular: Reports no additional cardiovascular complaints [facility] Past Medical History Medical History Sleep apnea Crack cocaine use Hyperkalemia Acute exacerbation of COPD with asthma Metabolic acidosis Leukocytosis UTI (urinary tract infection) Acute respiratory failure with hypoxia Chest discomfort Chronic renal failure, stage 2 (mild) Acute and chronic respiratory failure with hypercapnia SOB (shortness of breath) Asthma Encounter for preoperative pulmonary examination COPD exacerbation Smoker Rotator cuff tendonitis GERD (gastroesophageal reflux disease) Chronic idiopathic constipation Bustos's esophagus Depression High triglycerides Gastroparesis Carpal tunnel syndrome of right wrist Nausea & vomiting Hernia Acute and chronic respiratory failure, unspecified whether with hypoxia or hypercapnia Respiratory failure HTN (hypertension) Obesity (BMI 30-39.9) Diabetes mellitus Knee pain, bilateral Surgical History History of carpal tunnel release Hx of tubal ligation History of pubovaginal sling History of umbilical hernia repair Hx of section History of open reduction and internal fixation (ORIF) procedure Hx of cholecystectomy History of esophagogastroduodenoscopy (EGD) Family History Family History Father Heart disease HENRY (obstructive sleep apnea) Family history of breast cancer Mother Asthma Emphysema, unspecified Bronchitis Smoker Alcoholism Bone marrow disease Maternal Grandmother Diabetes Social History Social History Household Members: Family Household Members Other:: sister Housing: Apartment Are you a primary small animal caretaker to a significant other at home: No Do you presently have visiting nurse or other home services: Yes Unable to assess alcohol history related to: Unknown Alcohol intake: never Comment: Sleeping Patient Tobacco Use Status: Current everyday Tobacco user Tobacco use type: Cigarette Cigarette Packs Per Day: 1 Cigarettes Per Day: 20.0 Years Smoked: 35 e-Cigarette/Vaping Use: Currently Using Second Hand Smoke Exposure: No Substance Use Type: Crack/Cocaine Advance Directives: No Advance Directives Information Provided: Yes Advance Directives Date on File: 04/15/20 service: No Current occupational status: disabled 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 Physical Exam 2 Vital Signs: Vital Signs: Last Vital Signs Temp 98.6 F 06/01/23 12:08 Pulse 109 H 06/01/23 15:15 Resp 18 06/01/23 15:40 BP 108/45 L 06/01/23 15:15 Pulse Ox 96 06/01/23 15:40 O2 Del Method BiPAP 06/01/23 15:40 O2 Flow Rate 3 06/01/23 15:34 FiO2 35 06/01/23 14:32 BMI result Body Mass Index 33.4 Const: General: cooperative Nutritional Appearance: well nourished O rientation/consciousness: patient oriented x3 Limitations: no limitations HEENT: Head: Yes normal to inspection Ears: hearing grossly normal bilaterally General nose exam: Normal external nose present Face and sinus: Yes normal facial exam Mouth: Normal oral and palatal mucosa present Teeth and gingiva: dentition normal Throat: Yes posterior oropharynx normal Eyes: General: appearance normal, both eyes and all related structures V isual Yi: normal visual yi by confrontation Alignment and Position: a lignment normal Neck: Neck: Yes normal visual inspection Chest: Chest palpation & inspection: normal inspection of the chest Resp: Effort & Inspection: prolonged expiratory phase Auscultation: wheezes Cardio: Jugular venous distension: no JVD Rate: regular rate Rhythm: r egular rhythm GI: Inspection: Yes normal to inspection Percussion: Yes normal to percussion : General: Yes no CVA tenderness Back/Spine/Pelvis: Back: no CVA tenderness Neuro: General: patient oriented x3 Course Reevaluation(s) Reevaluation #1: gas better remain stable Dr Tipton not comfortable to take her to the floor yet because lethargic signed out to Dr Peña Time: 16:33 Reevaluation #2: Signed out to Dr Peña Medications Administered Discontinued Medications Generic Name Dose Route Start Last Admin Trade Name Terenceq PRN Reason Stop Dose Admin Albuterol Sulfate 7.5 mg/ 0 mg 06/01/23 13:00 06/01/23 13:04 Albuterol/Ipratropium 3 ml INHALE 06/01/23 13:01 2.5 each ONCE ONE Administration Albuterol Sulfate 7.5 mg/ 0 mg 06/01/23 14:22 06/01/23 14:23 Albuterol/Ipratropium 3 ml INHALE 06/01/23 14:23 2.5 each ONCE ONE Administration Methylprednisolone Sodium Succinate 125 mg 06/01/23 12:45 06/01/23 13:02 Methylprednisolone Sod Succ 125 Mg/2 Ml Vial IVPUSH 06/01/23 12:46 125 mg ONCE ONE Administration Medical Decision Making Medical Decision Making [facility] Narrative: Patient presented with the exacerbation of COPD will do chest x-ray labs administer bronchodilator treatment IV steroid and reassess Differential Diagnosis Differential Diagnoses: The differential diagnosis associated with the presentation includes COPD exacerbation/pneumonia/bronchitis Admission/Observation Consideration of admission/observation: Escalation of care including admission/observation considered Lab Data [facility] Lab Attestation statement: I reviewed the patient's lab results. 06/01/23 12:57 06/01/23 12:57 Labs: Lab Results 06/01/23 06/01/23 06/01/23 Range/Units 12:57 13:01 15:59 WBC 10.7 (4.8-10.8) X10*3/uL RBC 4.70 (4.20-5.50) X10*6/uL Hgb 12.6 (12.0-16.0) g/dl Hct 38.9 (37.0-47.0) % MCV 82.8 (80.0-98.0) fL MCH 26.8 L (27.0-33.0) pg MCHC 32.4 (31.0-35.0) g/dl RDW 15.0 (11.0-16.0) % Plt Count 366 (160-400) X10*3/uL MPV 9.0 L (9.4-12.3) fL Immature Gran % (Auto) 0.3 (0.0-0.4) % Neut % (Auto) 80.4 H (45-73) % Lymph % (Auto) 9.8 L (20-40) % [place] % (Auto) 9.2 (2-11) % Eos % (Auto) 0.2 (0-4) % Baso % (Auto) 0.1 (0-2) % Lymph # (Auto) 1.0 L (1.2-4.9) X10*3/uL [place] # (Auto) 1.0 (0.1-1.2) X10*3/uL Eos # (Auto) 0.0 (0.0-0.4) X10*3/uL Baso # (Auto) 0.0 (0.0-0.2) X10*3/uL Abs Immat Gran (auto) 0.03 (0.00-0.03) X10*3/uL Absolute Neuts (auto) 8.6 H (2.0-8.3) x10*3/uL Absolute Nucleated RBC 0.000 (0.0-0.012) X10*3/uL Nucleated RBC % (auto) 0.0 (0.0-0.2) /100WBC O2 Saturation 99.0 % ABG pH at Pt Temp 7.37 (7.35-7.45) ABG pCO2 at Pt Temp 40 (32-45) mmHg ABG pO2 at Pt Temp 119 H (83-108) mmHg ABG HCO3 23 (22-26) mmol/L ABG Base Excess (Actual) -1.6 mmol/L VBG pH 7.35 (7.32-7.43) VBG pCO2 47 mmHg VBG pO2 50 mmHg VBG HCO3 26 (22-26) mmol/L VBG O2 Saturation 80.0 % VBG Base Excess 0.7 mmol/L Sodium 143 (135-145) mmol/L Potassium 3.3 (3.3-5.1) mmol/L Chloride 108 (96-108) mmol/L Carbon Dioxide 25 (22-29) mmol/L Anion Gap 13 (12-20) BUN 19 H (9-16) mg/dL Creatinine 0.86 (0.5-1.4) mg/dL Estim Creat Clear Calc 65.2 Estimated GFR > 60 Random Glucose 62 (60-115) mg/dL Calcium 8.9 (8.4-10.2) mg/dL Total Bilirubin 0.1 (0.0-1.0) mg/dL AST 12 (5-31) U/L ALT 11 (0-31) U/L Alkaline Phosphatase 86 (39-117) U/L Troponin I High Sens 8.9 D (<3.5-17.0) ng/L Total Protein 7.1 (6.5-8.0) g/dL Albumin 4.1 (3.5-5.0) g/dL COVID-19 ([facility]ERT) Negative (Negative) COVID-19 Clin Com See Note ABG Data ABG Results: normal ABG Attestation ABG: I personally reviewed and interpreted this ABG as follows: Interpretation: normal Independent Interpretation I performed an independent interpretation of an: Plain X-Ray Radiology Impression Discussion of test interpretation with radiology: I have reviewed the radiologist's reading. External Record Review External record reviewed: Inpatient record Discharge Plan Discharge Clinical Impression: COPD (chronic obstructive pulmonary disease) Patient Disposition: Still a Patient Prescriptions: No Action (DME) lancets [FreeStyle Lancets] 28 gauge misc See Rx Instructions .ROUTE .MEDSUPPLY Qty: 100 1RF Rx Instructions: Use to check blood sugar daily or if symptomatic hypo/hypergylcemia (DME) 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 meter [FreeStyle Lite Meter] Kit See Rx Instructions .ROUTE .MEDSUPPLY Qty: 1 0RF Rx Instructions: Use to check blood sugar daily or if symptomatic for hypo/hyperglycemia (DME) FreeStyle Lite Strips Strip See Rx Instructions .ROUTE .MEDSUPPLY Qty: 100 1RF Rx Instructions: Use to check blood sugar daily or if symptomatic hypo/hypergylcemia losartan 25 mg tablet 25 mg PO DAILY Qty: 90 1RF theophylline 400 mg tablet extended release 24 hr 400 mg PO BID 90 Days Qty: 180 4RF dicyclomine 20 mg tablet 20 mg PO QID Qty: 120 1RF sertraline 100 mg tablet 100 mg PO DAILY 30 Days Qty: 30 4RF ibuprofen 800 mg tablet 800 mg PO BID PRN (Reason: pain) Qty: 60 0RF dexlansoprazole [Dexilant] 60 mg capsule,biphase delayed releas 60 mg PO DAILY 30 Days Qty: 30 6RF famotidine [Zantac-360 (famotidine)] 10 mg tablet 10 mg PO BEDTIME Qty: 90 0RF furosemide 20 mg tablet 20 mg PO DAILY 30 Days Qty: 30 6RF albuterol sulfate 90 mcg/actuation HFA aerosol inhaler 2 puff inhalation Q4-6H PRN (Reason: shortness of breath or wheezing) 90 Days Qty: 3 3RF lubiprostone [Amitiza] 24 mcg capsule 24 mcg PO BID 30 Days Qty: 60 6RF ipratropium bromide 0.02 % solution 2.5 ml inhalation Q6H PRN (Reason: for wheezing) 30 Days Qty: 187.5 6RF Trulicity 0.75 mg/0.5 mL pen injector 0.75 mg subcut MO@1000 Qty: 6 0RF Rx Instructions: Refill pending Aug appt aspirin 81 mg tablet,delayed release (DR/EC) 81 mg PO DAILY 90 Days Qty: 90 1RF glipizide 5 mg tablet 5 mg PO DAILY 90 Days Qty: 90 0RF tizanidine 4 mg tablet 4 mg PO Q8H PRN (Reason: muscle spasm) 30 Days Qty: 90 0RF gabapentin 800 mg tablet 800 mg PO QID 30 Days Qty: 120 0RF prednisone 20 mg tablet 40 mg PO DAILY Qty: 10 0RF acetaminophen 650 mg tablet extended release 650 mg PO Q12H PRN (Reason: pain) 30 Days Qty: 60 0RF
[2023-06-01 13:01] LABS: MANUAL DIFF FLAG NO
[2023-06-01 13:02] LABS: Basophils Percent Auto 0.1 % (0-2); Eosinophils Percent Auto 0.2 % (0-4); Hematocrit 38.9 % (37.0-47.0); Hemoglobin 12.6 g/dl (12.0-16.0); Imm Gran Abs Auto 0.03 X10*3/uL (0.00-0.03); Imm Gran Pct Auto 0.3 % (0.0-0.4); Lymphocytes Percent Auto 9.8 % (20-40); Mean Corpuscular HGB Conc 32.4 g/dl (31.0-35.0); Mean Corpuscular Hemoglobin 26.8 pg (27.0-33.0); Mean Corpuscular Volume 82.8 fL (80.0-98.0); Monocytes Percent Auto 9.2 % (2-11); Neutrophils Absolute Auto 8.6 x10*3/uL (2.0-8.3); Neutrophils Percent Auto 80.4 % (45-73); Platelet Count 366 X10*3/uL (160-400); White Blood Count 10.7 X10*3/uL (4.8-10.8)
[2023-06-01] MEDS: methylPREDNISolone Sod Succ 125 MG/2 ML VIAL IVPUSH (13:02)
[2023-06-01] MEDS: Albuterol Sulfate 7.5 MG, Albuterol/Iprat 2.5/0.5MG 3 ML 3 ML INHALE ×2 (13:04→14:23)
[2023-06-01 13:06] LABS: Venous Blood Gas Refer to POC result
[2023-06-01 13:06] LABS: VBG Base Excess 0.7 mmol/L; VBG HCO3 26 mmol/L (22-26); VBG pCO2 47 mmHg; VBG pH 7.35 (7.32-7.43); VBG pO2 50 mmHg
[2023-06-01 13:21] LABS: Alanine Aminotransferase 11 U/L (0-31); Albumin Level 4.1 g/dL (3.5-5.0); Alkaline Phosphatase 86 U/L (39-117); Anion Gap 13 (12-20); Aspartate Amino Transferase 12 U/L (5-31); Bilirubin Total 0.1 mg/dL (0.0-1.0); Blood Urea Nitrogen 19 mg/dL (9-16); Calcium 8.9 mg/dL (8.4-10.2); Carbon Dioxide 25 mmol/L (22-29); Chloride 108 mmol/L (96-108); Creatinine Clr Calc Pharmacy 65.2; Estimated Glomerular Filt Rate > 60; Glucose Random 62 mg/dL (60-115); Potassium 3.3 mmol/L (3.3-5.1); Sodium 143 mmol/L (135-145); Total Protein 7.1 g/dL (6.5-8.0)
[2023-06-01 13:27] LABS: COVID-19 Test Negative (Negative); IDNOW Serial# 08D9AD1C
[2023-06-01 13:28] LABS: Troponin-I High Sensitivity 8.9 ng/L (<3.5-17.0)
--- NOTE | 2023-06-01 14:29 | PC.NURSE ---
pt becoming very sleepy, easily woken but when she falls asleep her head rests forward and her sats go down in the upper 80's, vbg looks good, ls coarse wheezes throughout, work of breathing has increased and dr hernandez to bedside and decided on bipap, pt placed on bipap by rt, pt tolerating well, st on monitor, now sleeping
--- NOTE | 2023-06-01 15:46 | PC.NURSE ---
this nurse obtained report from jerel and took over care at 3pm, patient was on bipap 12/6 35% with stable vitals/O2, per request of provider at bedside, pt was taken off bipap and placed, pts O2 sat decreased rapidly to 80s, provider was notified, Dr. Tipton and Ed provider at bedside, pt placed back on Bipap, pt was notably sleepy and falling asleep mid sentence pt would wake to verbal stimulus, pt stated they hadnt slept for many days, this nurse requested provider to put in a drug tox on patient as she seemed altered, pt breathing is labored-using assessory muscles, lungs diminished with expiratory wheezing at the bases, vehicle monitor technician nsr-st. Per request of provider, RT was called to perform an ABG, will continue to monitor
[2023-06-01 16:04] LABS: ABG Base Excess -1.6 mmol/L; ABG HCO3 23 mmol/L (22-26); ABG pCO2 40 mmHg (32-45); ABG pH 7.37 (7.35-7.45); ABG pO2 119 mmHg (83-108)
--- NOTE | 2023-06-01 16:09 | PC.NURSE ---
pt straight cath per verbal order given by dr hernandez
[2023-06-01 16:14] LABS: ABG Refer to POC result
[2023-06-01 16:37] LABS: Amphetamine Screen Urine Not Detected (Not Detect); Barbiturates, Urine Not Detected (Not Detect); Benzodiazepines Screen Urine Not Detected (Not Detect); Cannabinoid Screen Urine Not Detected (Not Detect); Cocaine Screen Urine POSITIVE (Not Detect); Fentanyl, urine Not Detected (Not Detect); Opiate Screen Urine Not Detected (Not Detect); Phencyclidine Screen Urine Not Detected (Not Detect)
--- NOTE | 2023-06-01 18:22 | PM.IMHP ---
History of Present Illness Date of Service: 06/01/23 Chief Complaint: Shortness of breath 53-year-old female smoker with history of COPD presents with 2 days of worsening shortness of breath and sputum production. She states her nebulizers were not helpful at home. Upon arrival to the ER, patient was noted to be lethargic with poor respiratory status. She was placed on BiPAP despite normal VBG s. U tox was obtained and was positive for cocaine. When question about last cocaine use she states 2 days ago; when asked to quantify she states she did cocaine for day and a half. When asked if she took extra gabapentin she reluctantly said she took extra because of the cocaine. At this point in time she will be admitted for COPD exacerbation and gabapentin will be held Review of Systems Review of Systems: Denies chest pain Denies shortness of breath Denies nausea vomiting diarrhea Denies fever chills [facility] Medical History (Updated 06/01/23 @ 18:39 by Luigi Tipton DO) Diabetes mellitus Sleep apnea Crack cocaine use Hyperkalemia Acute exacerbation of COPD with asthma Metabolic acidosis Leukocytosis UTI (urinary tract infection) Acute respiratory failure with hypoxia Chest discomfort Chronic renal failure, stage 2 (mild) Acute and chronic respiratory failure with hypercapnia SOB (shortness of breath) Asthma Encounter for preoperative pulmonary examination COPD exacerbation Smoker Rotator cuff tendonitis GERD (gastroesophageal reflux disease) Chronic idiopathic constipation Bustos's esophagus Depression High triglycerides Gastroparesis Carpal tunnel syndrome of right wrist Nausea & vomiting Hernia Acute and chronic respiratory failure, unspecified whether with hypoxia or hypercapnia Respiratory failure HTN (hypertension) Obesity (BMI 30-39.9) Knee pain, bilateral Family History Father Heart disease HENRY (obstructive sleep apnea) Family history of breast cancer Mother Asthma Emphysema, unspecified Bronchitis Smoker Alcoholism Bone marrow disease Maternal Grandmother Diabetes Surgical History History of carpal tunnel release Hx of tubal ligation History of pubovaginal sling History of umbilical hernia repair Hx of section History of open reduction and internal fixation (ORIF) procedure Hx of cholecystectomy History of esophagogastroduodenoscopy (EGD) Social History Household Members: Family Household Members Other:: sister Housing: Apartment Are you a primary healthcare science specialist to a significant other at home: No Do you presently have visiting nurse or other home services: Yes Unable to assess alcohol history related to: Unknown Alcohol intake: never Comment: Sleeping Patient Tobacco Use Status: Current everyday Tobacco user Tobacco use type: Cigarette Cigarette Packs Per Day: 1 Cigarettes Per Day: 20.0 Years Smoked: 35 e-Cigarette/Vaping Use: Currently Using Second Hand Smoke Exposure: No Substance Use Type: Crack/Cocaine Advance Directives: No Advance Directives Information Provided: Yes Advance Directives Date on File: 04/15/20 service: No Current occupational status: disabled 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 Meds Allergies Allergy/AdvReac Type Severity Reaction Status Date / Time doxycycline Allergy Severe Swelling Verified 01/21/23 22:23 varenicline [From CHANTIX] Allergy Severe ANAPHYLAXIS Verified 01/21/23 22:23 barium sulfate Allergy Intermediate angioedema Verified 01/21/23 22:23 azithromycin Allergy Mild Rash Verified 01/21/23 22:23 cetirizine Allergy Mild Rash Verified 01/21/23 22:23 famotidine Allergy Mild Rash Verified 01/21/23 22:23 linaclotide [Linzess] Allergy Mild Rash Verified 01/21/23 22:23 Active Medications: Current Medications Acetaminophen (Acetaminophen 325 Mg Tablet) 650 mg PO Q6H PRN PRN Reason: Pain, Mild (Pain Scale 1-3) Al Hydroxide/Mg Hydroxide (Magnesium Hydrox/Alum Hydrox 30 Ml Oral.Susp) 30 ml PO Q4H PRN PRN Reason: Heartburn/Nausea Albuterol/Ipratropium (Albuterol/Iprat 2.5/0.5mg 3 Ml Ampul.Neb) 3 ml INHALE Q4H PRN PRN Reason: Wheezing Enoxaparin Sodium (Enoxaparin Sodium 40 Mg/0.4 Ml Syringe) 40 mg SUBCUT Q24H [place] Ondansetron HCl (Ondansetron Hcl 4 Mg/2 Ml Vial) 4 mg IVPUSH Q8H PRN PRN Reason: Nausea and Vomiting Sodium Chloride (0.9 % Sodium Chloride Flush 3 Ml Syringe) 3 ml IVFLUSH QSHIFT [facility] Home Medications Medication Instructions Recorded Confirmed Last Taken Type albuterol sulfate 90 mcg/actuation 2 puff inhalation Q6H PRN 06/01/23 06/01/23 Unknown History aerosol inhaler shortness of breath or wheezing dexlansoprazole 60 mg 60 mg PO DAILY@0630 06/01/23 06/01/23 05/31/23 History capsule,biphase delayed release (Dexilant) prednisone 20 mg tablet 40 mg PO ONCE 06/01/23 06/01/23 Unknown History Physical Exam Vital Signs and Narrative: Vital Signs: Last Vital Signs Temp 98.2 F 06/01/23 16:54 Pulse 104 H 06/01/23 16:54 Resp 20 06/01/23 16:54 BP 133/91 H 06/01/23 16:54 Pulse Ox 98 06/01/23 16:54 O2 Del Method Room Air 06/01/23 16:54 O2 Flow Rate 3 06/01/23 15:34 FiO2 35 06/01/23 14:32 BMI result Body Mass Index 33.4 Const: Other: Awake alert no acute distress Resp: Other: Diminished at bases with scattered expiratory wheezes Cardio: Other: No S4; positive S1-S2; no S3 murmurs rubs gallops GI: Other: Soft nontender nondistended normoactive bowel sounds Neuro: Other: Awake alert oriented x3. Cranial nerves 2-12 grossly intact as tested. Motor is 5/5 all extremities. Sensation is intact. Gait not observed Extrem: Other: No edema bilaterally Results Labs 06/01/23 12:57 06/01/23 12:57 Labs: Laboratory Results - last 24 hr 06/01/23 06/01/23 06/01/23 12:57 13:01 15:59 MCV 82.8 MCH 26.8 L MCHC 32.4 RDW 15.0 Plt Count 366 MPV 9.0 L Immature Gran % (Auto) 0.3 Neut % (Auto) 80.4 H Lymph % (Auto) 9.8 L [place] % (Auto) 9.2 Eos % (Auto) 0.2 Baso % (Auto) 0.1 Lymph # (Auto) 1.0 L [place] # (Auto) 1.0 Eos # (Auto) 0.0 Baso # (Auto) 0.0 Abs Immat Gran (auto) 0.03 Absolute Neuts (auto) 8.6 H Absolute Nucleated RBC 0.000 Nucleated RBC % (auto) 0.0 O2 Saturation 99.0 ABG pH at Pt Temp 7.37 ABG pCO2 at Pt Temp 40 ABG pO2 at Pt Temp 119 H ABG HCO3 23 ABG Base Excess (Actual) -1.6 VBG pH 7.35 VBG pCO2 47 VBG pO2 50 VBG HCO3 26 VBG O2 Saturation 80.0 VBG Base Excess 0.7 Anion Gap 13 Estim Creat Clear Calc 65.2 Estimated GFR > 60 Random Glucose 62 Calcium 8.9 Total Bilirubin 0.1 AST 12 ALT 11 Alkaline Phosphatase 86 Total Protein 7.1 Albumin 4.1 Urine Opiates Screen Urine Fentanyl Screen Ur Barbiturates Screen Ur Phencyclidine Scrn Ur Amphetamines Screen U Benzodiazepines Scrn Urine Cocaine Screen U Marijuana (THC) Screen COVID-19 ([facility]) Negative COVID-19 [employer] See Note 06/01/23 16:06 MCV MCH MCHC RDW Plt Count MPV Immature Gran % (Auto) Neut % (Auto) Lymph % (Auto) [place] % (Auto) Eos % (Auto) Baso % (Auto) Lymph # (Auto) [place] # (Auto) Eos # (Auto) Baso # (Auto) Abs Immat Gran (auto) Absolute Neuts (auto) Absolute Nucleated RBC Nucleated RBC % (auto) O2 Saturation ABG pH at Pt Temp ABG pCO2 at Pt Temp ABG pO2 at Pt Temp ABG HCO3 ABG Base Excess (Actual) VBG pH VBG pCO2 VBG pO2 VBG HCO3 VBG O2 Saturation VBG Base Excess Anion Gap Estim Creat Clear Calc Estimated GFR Random Glucose Calcium Total Bilirubin AST ALT Alkaline Phosphatase Total Protein Albumin Urine Opiates Screen Not Detected Urine Fentanyl Screen Not Detected Ur Barbiturates Screen Not Detected Ur Phencyclidine Scrn Not Detected Ur Amphetamines Screen Not Detected U Benzodiazepines Scrn Not Detected Urine Cocaine Screen POSITIVE H U Marijuana (THC) Screen Not Detected COVID-19 ([facility]) COVID-19 Clin Com Imaging Radiologist's Impressions: Impressions Chest X-Ray 06/01/23 13:57 IMPRESSION: Bronchial wall thickening may be infectious and/or inflammatory in etiology. Assessment and Plan (1) Acute exacerbation of chronic obstructive pulmonary disease (COPD): Status: Acute (2) Diabetes mellitus: Qualifiers: Diabetes mellitus type: type 2 Diabetes mellitus alf insulin use: without termite renewal inspector use Diabetes mellitus complication status: with neurologic complications Diabetes mellitus complication detail: with polyneuropathy Qualified Code(s): E11.42 - Type 2 diabetes mellitus with diabetic polyneuropathy Status: Acute (3) HTN (hypertension): Qualifiers: Hypertension type: primary hypertension Qualified Code(s): I10 - Essential (primary) hypertension Status: Acute Plan 53-year-old female persistent tobacco user presents with shortness of breath and productive cough that had been worsening over the past 48 hours. Upon arrival to the ER mental status was labile as well as respiratory status. Was placed on BiPAP and responded to DuoNeb therapy and steroids. U tox was positive for cocaine; when asked last usage states 2 days ago for 24 hours. She states he ate she then took extra gabapentin to counteract the effects of the cocaine. She is very clear that this was an unintentional event 1. Acute exacerbation of COPD -pulse dose steroids -titrate O2 to maintain sats greater than or equal to 90%; CPAP at HS as per outpatient therapies -given productive cough, will start on doxycycline -DuoNebs q.4 hours while awake as needed 2. Diabetes type 2 -acceptable control present -hold oral agents and long-acting insulin at this time -lispro correctional scale -ADA diet -adjust as indicated 3. Hypertension -acceptable control on current therapies -adjust as indicated 4. Cocaine abuse -addiction Medicine consult Full code Lovenox Patient will require at least 2 midnights of inpatient stay going forward to treat acute exacerbation of COPD with IV steroids and antibiotics. This cannot be achieved a lesser acute setting Quality Stroke Does the patient have a stroke diagnosis?: No VTE Prior VTE?: No VTE Risk Level:: Medical - moderate - high VTE Device Contraindication: Treatment Not Indicated VTE Drug Contraindication: N/A - Med Ordered
--- NOTE | 2023-06-01 18:30 | PHA.MEDREC ---
Pharmacy Consult ? Medication Reconciliation Pharmacy has completed the medication reconciliation.
[2023-06-01 18:46] LABS: Glucose, Whole Blood 227 mg/dL (60-115)
--- NOTE | 2023-06-01 19:10 | PC.NURSE ---
assumed care of pt
[2023-06-01] MEDS: Enoxaparin Sodium 40 MG/0.4 ML SYRINGE SUBCUT (19:15)
[2023-06-01] MEDS: Insulin Lispro 100 UNIT/ML 3 ML VIAL SUBCUT (19:15)
[2023-06-01 19:43] LABS: Glucose, Whole Blood 212 mg/dL (60-115)
[2023-06-01 20:52] LABS: Glucose, Whole Blood 253 mg/dL (60-115)
[2023-06-01] MEDS: 0.9 % Sodium Chloride Flush 3 ML SYRINGE IVFLUSH (21:51)
[2023-06-01] MEDS: Lactated Ringers 1,000 ML 999 ML IV (22:35)
[2023-06-01] MEDS: Albuterol/Iprat 2.5/0.5MG 3 ML AMPUL.NEB INHALE (23:04)
[2023-06-02] VITALS (9 sets, daily range): BP systolic 139–164; BP diastolic 63–92; PULSE 78–107; RESP 16–20; TEMP 36–36.4; O2SAT 93–99
[2023-06-02] MEDS: guaiFENesin DM 200/20/10 ML 10 ML SYRUP PO ×4 (00:42→20:29)
[2023-06-02 00:44] LABS: Glucose, Whole Blood 118 mg/dL (60-115)
[2023-06-02 06:25] LABS: Glucose, Whole Blood 107 mg/dL (60-115)
[2023-06-02 06:30] LABS: MANUAL DIFF FLAG NO
[2023-06-02 06:49] LABS: Alanine Aminotransferase 9 U/L (0-31); Albumin Level 3.6 g/dL (3.5-5.0); Alkaline Phosphatase 78 U/L (39-117); Anion Gap 14 (12-20); Aspartate Amino Transferase 9 U/L (5-31); Bilirubin Total 0.1 mg/dL (0.0-1.0); Blood Urea Nitrogen 21 mg/dL (9-16); Calcium 8.7 mg/dL (8.4-10.2); Carbon Dioxide 24 mmol/L (22-29); Chloride 106 mmol/L (96-108); Creatinine Clr Calc Pharmacy 72.1; Estimated Glomerular Filt Rate > 60; Glucose Random 99 mg/dL (60-115); Potassium 3.6 mmol/L (3.3-5.1); Sodium 140 mmol/L (135-145); Total Protein 6.3 g/dL (6.5-8.0)
[2023-06-02 07:16] LABS: Basophils Percent Auto 0.1 % (0-2); Hemoglobin 11.7 g/dl (12.0-16.0); Imm Gran Abs Auto 0.03 X10*3/uL (0.00-0.03); Imm Gran Pct Auto 0.4 % (0.0-0.4); Lymphocytes Absolute Auto 2.2 X10*3/uL (1.2-4.9); Lymphocytes Percent Auto 28.8 % (20-40); Mean Corpuscular HGB Conc 32.5 g/dl (31.0-35.0); Mean Corpuscular Hemoglobin 27.5 pg (27.0-33.0); Mean Corpuscular Volume 84.7 fL (80.0-98.0); Mean Platelet Volume 9.5 fL (9.4-12.3); Monocytes Absolute Auto 0.9 X10*3/uL (0.1-1.2); Monocytes Percent Auto 12.2 % (2-11); Neutrophils Absolute Auto 4.5 x10*3/uL (2.0-8.3); Neutrophils Percent Auto 58.5 % (45-73); Platelet Count 366 X10*3/uL (160-400); Red Blood Count 4.25 X10*6/uL (4.20-5.50); Red Cell Distribution Width 15.2 % (11.0-16.0); White Blood Count 7.7 X10*3/uL (4.8-10.8)
--- NOTE | 2023-06-02 09:18 | MHC.CM.PN ---
CM met with Patient at bedside. Patient lives in an apartment with her Daughter/HCP/[employer]PER[employer]/Jaja and she uses a walker to assist with mobility. Patient receives [employer] hours/week and home/resume said services is the goal. CM has initiated and will follow for dc planning. PCP is Dr. Joe Hale.
[2023-06-02] MEDS: Albuterol/Iprat 2.5/0.5MG 3 ML AMPUL.NEB INHALE ×3 (09:38→23:26)
[2023-06-02] MEDS: methylPREDNISolone Sod Succ 125 MG/2 ML VIAL 60 MG IVPUSH ×3 (10:34→22:20)
[2023-06-02] MEDS: Aspirin Enteric Coated 81 MG TABLET.DR PO (10:34)
[2023-06-02] MEDS: Losartan Potassium 25 MG TABLET PO (10:34)
[2023-06-02] MEDS: Gabapentin 400 MG CAPSULE 800 MG PO ×4 (10:34→20:29)
[2023-06-02] MEDS: Furosemide 20 MG TABLET PO (10:34)
[2023-06-02] MEDS: Sertraline HCL 100 MG TABLET PO (10:34)
[2023-06-02] MEDS: Theophylline Anhydrous ER 400 MG TAB.ER.24H PO ×2 (10:34→20:29)
[2023-06-02] MEDS: 0.9 % Sodium Chloride Flush 3 ML SYRINGE IVFLUSH ×2 (10:37→15:51)
[2023-06-02] MEDS: glipiZIDE 5 MG TABLET PO (10:37)
[2023-06-02] MEDS: cefTRIAXone sodium 2 GM in 0.9 % Sodium Chloride 50 ML IV (10:44)
[2023-06-02] MEDS: Azithromycin 500 MG in 0.9 % Sodium Chloride 250 ML 125 MG IV (11:42)
[2023-06-02 12:36] LABS: Glucose, Whole Blood 126 mg/dL (60-115)
--- NOTE | 2023-06-02 13:12 | HO.PM.IMPN ---
Subjective Subjective Date of Service: 06/02/23 Interval History: Awake and alert this a.m.. Did admit to extra gabapentin. Still short of breath with minimal movement Review of Systems Denies chest pain Denies shortness of breath Denies nausea vomiting diarrhea Denies fever chills Physical Exam Vital Signs: Vital Signs: Last Vital Signs Temp 97.0 F 06/02/23 11:05 Pulse 83 06/02/23 11:05 Resp 20 06/02/23 11:05 BP 164/72 H 06/02/23 11:05 Pulse Ox 93 06/02/23 11:05 O2 Del Method Room Air 06/02/23 11:05 O2 Flow Rate 1 06/02/23 03:14 FiO2 35 06/01/23 14:32 BMI result Body Mass Index 31.1 Const: Other: Awake alert no acute distress Resp: Other: Diminished at bases with dense expiratory wheezes Cardio: Other: No S4; positive S1-S2; no S3 murmurs rubs gallops GI: Other: Soft nontender nondistended normoactive bowel sounds Neuro: Other: Awake alert oriented x3. Cranial nerves 2-12 grossly intact as tested. Motor is 5/5 all extremities. Sensation is intact. Gait not observed Extrem: Other: No edema bilaterally Objective Data Active Medications Acetaminophen (Acetaminophen 325 Mg Tablet) 650 mg PO Q6H PRN PRN Reason: Pain, Mild (Pain Scale 1-3) Al Hydroxide/Mg Hydroxide (Magnesium Hydrox/Alum Hydrox 30 Ml Oral.Susp) 30 ml PO Q4H PRN PRN Reason: Heartburn/Nausea Albuterol/Ipratropium (Albuterol/Iprat 2.5/0.5mg 3 Ml Ampul.Neb) 3 ml INHALE Q4H PRN PRN Reason: Wheezing Last Admin: 06/02/23 12:18 Dose: 3 ml Documented By: GILLIAN Aspirin (Aspirin Enteric Coated 81 Mg Tablet.) 81 mg PO DAILY [facility] Last Admin: 06/02/23 10:34 Dose: 81 mg Documented By: YISSEL Dextrose (Dextrose 50 % 25 Gm/50 Ml Syringe) 25 gm IVPUSH Q15M PRN; Protocol PRN Reason: per Hypoglycemia Standing Ord. Enoxaparin Sodium (Enoxaparin Sodium 40 Mg/0.4 Ml Syringe) 40 mg SUBCUT Q24H [facility] Last Admin: 06/01/23 19:15 Dose: 40 mg Documented By: HAYLEE Furosemide (Furosemide 20 Mg Tablet) 20 mg PO DAILY [facility]; Protocol Last Admin: 06/02/23 10:34 Dose: 20 mg Documented By: YISSEL Gabapentin (Gabapentin 400 Mg Capsule) 800 mg PO QID [facility] Last Admin: 06/02/23 10:34 Dose: 800 mg Documented By: YISSEL Glipizide (Glipizide 5 Mg Tablet) 5 mg PO DAILY [facility] Last Admin: 06/02/23 10:37 Dose: 5 mg Documented By: YISSEL Glucose (Glucose Gel 15 Gm Gel..Gram.) 15 gm PO Q15M PRN; Protocol PRN Reason: per Hypoglycemia Standing Ord. Guaifenesin/Dextromethorphan (Guaifenesin Dm 200/20/10 Ml 10 Ml Syrup) 10 ml PO Q4H PRN PRN Reason: Cough Last Admin: 06/02/23 10:44 Dose: 10 ml Documented By: YISSEL Ceftriaxone Sodium 2 gm/ (Sodium Chloride) 50 mls @ 100 mls/hr IV Q24H [facility] Last Infusion: 06/02/23 11:47 Dose: Infused Documented By: YISSEL Azithromycin 500 mg/ Sodium (Chloride) 250 mls @ 125 mls/hr IV Q24H [facility] Stop: 06/04/23 12:14 Last Admin: 06/02/23 11:42 Dose: 125 mls/hr Documented By: YISSEL Insulin Human Lispro (Insulin Lispro 100 Unit/Ml 3 Ml Vial) 0 unit SUBCUT Q6H [facility]; Protocol Last Admin: 06/02/23 07:39 Dose: Not Given Documented By: YISSEL Non-Admin Reason: No Insulin Coverage Losartan Potassium (Losartan Potassium 25 Mg Tablet) 25 mg PO DAILY [facility]; Protocol Last Admin: 06/02/23 10:34 Dose: 25 mg Documented By: YISSEL Methylprednisolone Sodium Succinate (Methylprednisolone Sod Succ 125 Mg/2 Ml Vial) 60 mg IVPUSH Q6H [facility] Last Admin: 06/02/23 10:34 Dose: 60 mg Documented By: YISSEL Non-Formulary Medication (Lubiprostone [Amitiza]) 24 mcg PO BID [facility] Omeprazole (Omeprazole 40 Mg Capsule.) 40 mg PO DAILY@0630 [facility] Ondansetron HCl (Ondansetron Hcl 4 Mg/2 Ml Vial) 4 mg IVPUSH Q8H PRN PRN Reason: Nausea and Vomiting Sertraline HCl (Sertraline Hcl 100 Mg Tablet) 100 mg PO DAILY [facility] Last Admin: 06/02/23 10:34 Dose: 100 mg Documented By: YISSEL Sodium Chloride (0.9 % Sodium Chloride Flush 3 Ml Syringe) 3 ml IVFLUSH QSHIFT [facility] Last Admin: 06/02/23 10:37 Dose: 3 ml Documented By: YISSEL Theophylline (Theophylline Anhydrous Er 400 Mg Tab.Er.24h) 400 mg PO BID [facility] Last Admin: 06/02/23 10:34 Dose: 400 mg Documented By: YISSEL Labs 06/02/23 06:15 06/02/23 06:15 Labs: Laboratory Results - last 24 hr 06/01/23 06/01/23 06/01/23 12:57 15:59 16:06 MCV MCH MCHC RDW Plt Count MPV Immature Gran % (Auto) Neut % (Auto) Lymph % (Auto) [place] % (Auto) Eos % (Auto) Baso % (Auto) Lymph # (Auto) [place] # (Auto) Eos # (Auto) Baso # (Auto) Abs Immat Gran (auto) Absolute Neuts (auto) Absolute Nucleated RBC Nucleated RBC % (auto) O2 Saturation 99.0 ABG pH at Pt Temp 7.37 ABG pCO2 at Pt Temp 40 ABG pO2 at Pt Temp 119 H ABG HCO3 23 ABG Base Excess (Actual) -1.6 Anion Gap 13 Estim Creat Clear Calc 65.2 Estimated GFR > 60 POC Glucose Random Glucose 62 Calcium 8.9 Total Bilirubin 0.1 AST 12 ALT 11 Alkaline Phosphatase 86 Total Protein 7.1 Albumin 4.1 Urine Opiates Screen Not Detected Urine Fentanyl Screen Not Detected Ur Barbiturates Screen Not Detected Ur Phencyclidine Scrn Not Detected Ur Amphetamines Screen Not Detected U Benzodiazepines Scrn Not Detected Urine Cocaine Screen POSITIVE H U Marijuana (THC) Screen Not Detected COVID-19 ([facility]) Negative COVID-19 Clin Com See Note 06/01/23 06/01/23 06/01/23 18:40 19:06 20:49 MCV MCH MCHC RDW Plt Count MPV Immature Gran % (Auto) Neut % (Auto) Lymph % (Auto) [place] % (Auto) Eos % (Auto) Baso % (Auto) Lymph # (Auto) [place] # (Auto) Eos # (Auto) Baso # (Auto) Abs Immat Gran (auto) Absolute Neuts (auto) Absolute Nucleated RBC Nucleated RBC % (auto) O2 Saturation ABG pH at Pt Temp ABG pCO2 at Pt Temp ABG pO2 at Pt Temp ABG HCO3 ABG Base Excess (Actual) Anion Gap Estim Creat Clear Calc Estimated GFR POC Glucose 227 H 212 H 253 H Random Glucose Calcium Total Bilirubin AST ALT Alkaline Phosphatase Total Protein Albumin Urine Opiates Screen Urine Fentanyl Screen Ur Barbiturates Screen Ur Phencyclidine Scrn Ur Amphetamines Screen U Benzodiazepines Scrn Urine Cocaine Screen U Marijuana (THC) Screen COVID-19 ([facility]) COVIDScreenleap 06/02/23 06/02/23 06/02/23 00:40 06:15 06:21 MCV 84.7 MCH 27.5 MCHC 32.5 RDW 15.2 Plt Count 366 MPV 9.5 Immature Gran % (Auto) 0.4 Neut % (Auto) 58.5 Lymph % (Auto) 28.8 [place] % (Auto) 12.2 H Eos % (Auto) 0.0 Baso % (Auto) 0.1 Lymph # (Auto) 2.2 [place] # (Auto) 0.9 Eos # (Auto) 0.0 Baso # (Auto) 0.0 Abs Immat Gran (auto) 0.03 Absolute Neuts (auto) 4.5 Absolute Nucleated RBC 0.000 Nucleated RBC % (auto) 0.0 O2 Saturation ABG pH at Pt Temp ABG pCO2 at Pt Temp ABG pO2 at Pt Temp ABG HCO3 ABG Base Excess (Actual) Anion Gap 14 Estim Creat Clear Calc 72.1 Estimated GFR > 60 POC Glucose 118 H 107 Random Glucose 99 Calcium 8.7 Total Bilirubin 0.1 AST 9 ALT 9 Alkaline Phosphatase 78 Total Protein 6.3 L Albumin 3.6 Urine Opiates Screen Urine Fentanyl Screen Ur Barbiturates Screen Ur Phencyclidine Scrn Ur Amphetamines Screen U Benzodiazepines Scrn Urine Cocaine Screen U Marijuana (THC) Screen COVID-19 ([facility]) COVID-Marco Vasco 06/02/23 12:33 MCV MCH MCHC RDW Plt Count MPV Immature Gran % (Auto) Neut % (Auto) Lymph % (Auto) [place] % (Auto) Eos % (Auto) Baso % (Auto) Lymph # (Auto) [place] # (Auto) Eos # (Auto) Baso # (Auto) Abs Immat Gran (auto) Absolute Neuts (auto) Absolute Nucleated RBC Nucleated RBC % (auto) O2 Saturation ABG pH at Pt Temp ABG pCO2 at Pt Temp ABG pO2 at Pt Temp ABG HCO3 ABG Base Excess (Actual) Anion Gap Estim Creat Clear Calc Estimated GFR POC Glucose 126 H Random Glucose Calcium Total Bilirubin AST ALT Alkaline Phosphatase Total Protein Albumin Urine Opiates Screen Urine Fentanyl Screen Ur Barbiturates Screen Ur Phencyclidine Scrn Ur Amphetamines Screen U Benzodiazepines Scrn Urine Cocaine Screen U Marijuana (THC) Screen COVID-19 ([facility]) COVID-19 Clin Com Assessment and Plan (1) Acute exacerbation of chronic obstructive pulmonary disease (COPD): Status: Acute (2) Diabetes mellitus: Status: Acute (3) HTN (hypertension): Status: Acute (4) Crack cocaine use: Status: Acute Plan 53-year-old female persistent tobacco user presents with shortness of breath and productive cough that had been worsening over the past 48 hours. Upon arrival to the ER mental status was labile as well as respiratory status. Was placed on BiPAP and responded to DuoNeb therapy and steroids. U tox was positive for cocaine; when asked last usage states 2 days ago for 24 hours. She states he ate she then took extra gabapentin to counteract the effects of the cocaine. She is very clear that this was an unintentional event 1. Acute exacerbation of COPD -pulse dose steroids -titrate O2 to maintain sats greater than or equal to 90%; CPAP at HS as per outpatient therapies -given productive cough, will start ceftriaxone/azithromycin (1) -DuoNebs q.4 hours while awake as needed 2. Diabetes type 2 -acceptable control present -restart oral agents now that more awake -lispro correctional scale -ADA diet -adjust as indicated 3. Hypertension -acceptable control on current therapies -adjust as indicated 4. Cocaine abuse -addiction Medicine consult Full code Lovenox Patient will require ongoing hospitalization for IV antibiotics and steroids treat acute exacerbation COPD Quality Stroke Does the patient have a stroke diagnosis?: No VTE Prior VTE?: No VTE Risk Level:: Medical - moderate - high VTE Device Contraindication: Treatment Not Indicated VTE Drug Contraindication: N/A - Med Ordered
[2023-06-02] MEDS: Acetaminophen 325 MG TABLET 650 MG PO (15:49)
[2023-06-02 18:01] LABS: Glucose, Whole Blood 208 mg/dL (60-115)
[2023-06-02] MEDS: Insulin Lispro 100 UNIT/ML 3 ML VIAL SUBCUT (18:01)
[2023-06-02] MEDS: Enoxaparin Sodium 40 MG/0.4 ML SYRINGE SUBCUT (18:02)
--- NOTE | 2023-06-02 23:23 | PC.RT ---
Pt refusing CPAP tonight; states ill use my oxygen tonight
[2023-06-03 00:02] LABS: Glucose, Whole Blood 189 mg/dL (60-115)
[2023-06-03] MEDS: Insulin Lispro 100 UNIT/ML 3 ML VIAL SUBCUT ×2 (00:12→05:51)
[2023-06-03] MEDS: 0.9 % Sodium Chloride Flush 3 ML SYRINGE IVFLUSH ×2 (00:14→09:49)
[2023-06-03] MEDS: guaiFENesin DM 200/20/10 ML 10 ML SYRUP PO ×2 (02:30→10:14)
[2023-06-03 03:46] VITALS: BP 163/86; PULSE 84; RESP 20; TEMP 35.9; O2SAT 96
[2023-06-03] MEDS: methylPREDNISolone Sod Succ 125 MG/2 ML VIAL 60 MG IVPUSH ×2 (04:00→09:49)
[2023-06-03 05:45] LABS: Glucose, Whole Blood 151 mg/dL (60-115)
[2023-06-03] MEDS: Omeprazole 40 MG CAPSULE.DR PO (05:51)
[2023-06-03 07:15] VITALS: BP 142/78; PULSE 76; RESP 16; TEMP 36.4; O2SAT 95
[2023-06-03 08:08] LABS: MANUAL DIFF FLAG NO
[2023-06-03] MEDS: Albuterol/Iprat 2.5/0.5MG 3 ML AMPUL.NEB INHALE (08:26)
[2023-06-03 08:28] VITALS: PULSE 101; RESP 18; O2SAT 96
[2023-06-03 08:35] LABS: Hematocrit 39.3 % (37.0-47.0); Hemoglobin 12.4 g/dl (12.0-16.0); Imm Gran Abs Auto 0.03 X10*3/uL (0.00-0.03); Imm Gran Pct Auto 0.6 % (0.0-0.4); Lymphocytes Absolute Auto 0.9 X10*3/uL (1.2-4.9); Lymphocytes Percent Auto 16.5 % (20-40); Mean Corpuscular HGB Conc 31.6 g/dl (31.0-35.0); Mean Corpuscular Hemoglobin 26.4 pg (27.0-33.0); Mean Corpuscular Volume 83.6 fL (80.0-98.0); Mean Platelet Volume 9.5 fL (9.4-12.3); Monocytes Absolute Auto 0.2 X10*3/uL (0.1-1.2); Monocytes Percent Auto 3.3 % (2-11); Neutrophils Absolute Auto 4.1 x10*3/uL (2.0-8.3); Neutrophils Percent Auto 79.6 % (45-73); Platelet Count 396 X10*3/uL (160-400); Red Cell Distribution Width 14.9 % (11.0-16.0); White Blood Count 5.2 X10*3/uL (4.8-10.8)
[2023-06-03 08:41] LABS: Alanine Aminotransferase 31 U/L (0-31); Albumin Level 3.9 g/dL (3.5-5.0); Alkaline Phosphatase 88 U/L (39-117); Anion Gap 13 (12-20); Aspartate Amino Transferase 26 U/L (5-31); Bilirubin Total 0.1 mg/dL (0.0-1.0); Blood Urea Nitrogen 23 mg/dL (9-16); Calcium 9.2 mg/dL (8.4-10.2); Carbon Dioxide 29 mmol/L (22-29); Chloride 102 mmol/L (96-108); Creatinine Clr Calc Pharmacy 68.4; Estimated Glomerular Filt Rate > 60; Glucose Fasting 151 mg/dL (60-99); Potassium 4.2 mmol/L (3.3-5.1); Sodium 140 mmol/L (135-145); Total Protein 6.6 g/dL (6.5-8.0)
[2023-06-03] MEDS: Aspirin Enteric Coated 81 MG TABLET.DR PO (09:48)
[2023-06-03] MEDS: Theophylline Anhydrous ER 400 MG TAB.ER.24H PO (09:48)
[2023-06-03] MEDS: Sertraline HCL 100 MG TABLET PO (09:49)
[2023-06-03] MEDS: glipiZIDE 5 MG TABLET PO (09:49)
[2023-06-03] MEDS: Furosemide 20 MG TABLET PO (09:49)
[2023-06-03] MEDS: cefTRIAXone sodium 2 GM in 0.9 % Sodium Chloride 50 ML IV (09:49)
[2023-06-03] MEDS: Gabapentin 400 MG CAPSULE 800 MG PO ×2 (09:49→12:23)
[2023-06-03] MEDS: Losartan Potassium 25 MG TABLET PO (09:49)
[2023-06-03] MEDS: Acetaminophen 325 MG TABLET 650 MG PO (09:53)
[2023-06-03] MEDS: Azithromycin 500 MG in 0.9 % Sodium Chloride 250 ML 125 MG IV (10:30)
[2023-06-03 11:28] VITALS: BP 144/84; PULSE 80; RESP 18; TEMP 36.1; O2SAT 94
[2023-06-03 11:52] LABS: Glucose, Whole Blood 115 mg/dL (60-115)
--- NOTE | 2023-06-03 11:54 | MHC.RECOVRN ---
Met with pt in 446 after consult placed to Addiction Medicine for cocaine use. Pt had presented to the ED with sob worsening for 2 days. duoneb given by ems, cough, chest wall pain with cough and sob. Upon evaluation, pt admitted for acute exacerbation of COPD, DM, and HTN. Pt standing in room, awake, alert, easily engages in conversation, preparing for discharge. Pt reports cocaine use, INH, $200-$300 dollars x 3 days. Pt reports she uses cocaine for 3 days, does not use for a couple days, and then returns to use. Pt reports she has been using cocaine, INH, x 3 years. Pt reports she used to use every day, however, has abstained from alcohol x 1 year and has since been able to go a couple days without smoking. Pt states I did it on my own. Pt denies hx ATS admissions or recovery services. Discussed support options, pt interested in medications for StUD. Appt made with the [facility] for 06/14 at 9:30AM. Discussed other supports, including outpatient therapy and recovery coaching. Pt would like to wait in regards to other referrals until after [facility] appt. Pt denies hx overdoses. Discussed fentanyl contamination in cocaine, provided pt with fentanyl test strips. Pt provided with other written resources as well. Pt denies questions or concerns for t/w, is looking forward to [facility] appt. Pt provided with t/w contact information if questions or concerns arise. Discussed with Richa Winston APRN.
--- NOTE | 2023-06-03 12:33 | P.DS_ITS ---
DS: Providers Provider Date of Service: 06/03/23 Date of admission: 06/01/23 18:17 Date of discharge: 06/03/23 Primary care physician: DOTTY Lazcano Consults: 06/01/23 18:44 Addiction Medicine Routine Consulting Provider: Addiction Covering Reason for consultation: cocaine abuse Has provider been notified: No DS: Diagnosis Discharge Diagnosis (1) Acute exacerbation of chronic obstructive pulmonary disease (COPD): Status: Acute (2) Diabetes mellitus: Status: Acute (3) HTN (hypertension): Status: Acute (4) Crack cocaine use: Status: Acute DS: Summary Hospital Course Hospital Course: 3-year-old female smoker with history of COPD presents with 2 days of worsening shortness of breath and sputum production. She states her nebulizers were not helpful at home. Upon arrival to the ER, patient was noted to be lethargic with poor respiratory status. She was placed on BiPAP despite normal VBG s. U tox was obtained and was positive for cocaine. When question about last cocaine use she states 2 days ago; when asked to quantify she states she did cocaine for day and a half. When asked if she took extra gabapentin she reluctantly said she took extra because of the cocaine. At this point in time she will be admitted for COPD exacerbation and gabapentin will be held Hospital Course Patient transferred to telemetry where she continued to improve from a mental status standpoint. She was started on azithromycin and ceftriaxone along with steroid pulse dosing. Over the course of the next 48 hours she improved dramatically. At this point in time she is medically acceptable for discharge. She is strongly advised to not smoke crack anymore for this will not have a good outcome. She states she is seeking treatment and will attempt to comply. She will follow-up with pulmonology and PCP as scheduled Time Attestation Discharge coordination time: Greater than 30 minutes Quality: Safe Use of Opioids Does Pt have an Active Cancer Diagnosis on the Problem List?: No Quality: Stroke Does the patient have a stroke diagnosis?: No Physical Exam Vital Signs: Vital Signs: Last Vital Signs Temp 97.0 F 06/03/23 11:28 Pulse 80 06/03/23 11:28 Resp 18 06/03/23 11:28 BP 144/84 H 06/03/23 11:28 Pulse Ox 94 06/03/23 11:28 O2 Del Method Room Air 06/03/23 11:28 O2 Flow Rate 1 06/02/23 15:15 FiO2 35 06/01/23 14:32 BMI result Body Mass Index 31.1 Const: Other: Awake alert no acute distress Resp: Other: Diminished at bases with dense expiratory wheezes Cardio: Other: No S4; positive S1-S2; no S3 murmurs rubs gallops GI: Other: Soft nontender nondistended normoactive bowel sounds Neuro: Other: Awake alert oriented x3. Cranial nerves 2-12 grossly intact as tested. Motor is 5/5 all extremities. Sensation is intact. Gait not observed Extrem: Other: No edema bilaterally DS: Data Data Completed and Pending Completed studies during hospitalization [Text1]: Procedures Assistance with Respiratory Ventilation, Less than 24 Consecutive Hours, Continuous Positive Airway Pressure (04/27/22) Insertion of Endotracheal Airway into Trachea, Via Natural or Artificial Opening (11/03/20) Insertion of Infusion Device into Superior Vena Cava, Percutaneous Approach (11/03/20) Respiratory Ventilation, Less than 24 Consecutive Hours (11/03/20) Labs on day of discharge: Laboratory Results - last 24 hr 06/02/23 06/02/23 06/02/23 12:33 17:57 23:51 WBC RBC Hgb Hct MCV MCH MCHC RDW Plt Count MPV Immature Gran % (Auto) Neut % (Auto) Lymph % (Auto) [place] % (Auto) Eos % (Auto) Baso % (Auto) Lymph # (Auto) [place] # (Auto) Eos # (Auto) Baso # (Auto) Abs Immat Gran (auto) Absolute Neuts (auto) Absolute Nucleated RBC Nucleated RBC % (auto) Sodium Potassium Chloride Carbon Dioxide Anion Gap BUN Creatinine Estim Creat Clear Calc Estimated GFR POC Glucose 126 H 208 H 189 H Fasting Glucose Calcium Total Bilirubin AST ALT Alkaline Phosphatase Total Protein Albumin 06/03/23 06/03/23 06/03/23 05:41 06:34 11:31 WBC 5.2 RBC 4.70 Hgb 12.4 Hct 39.3 MCV 83.6 MCH 26.4 L MCHC 31.6 RDW 14.9 Plt Count 396 MPV 9.5 Immature Gran % (Auto) 0.6 H Neut % (Auto) 79.6 H Lymph % (Auto) 16.5 L [place] % (Auto) 3.3 Eos % (Auto) 0.0 Baso % (Auto) 0.0 Lymph # (Auto) 0.9 L [place] # (Auto) 0.2 Eos # (Auto) 0.0 Baso # (Auto) 0.0 Abs Immat Gran (auto) 0.03 Absolute Neuts (auto) 4.1 Absolute Nucleated RBC 0.000 Nucleated RBC % (auto) 0.0 Sodium 140 Potassium 4.2 Chloride 102 Carbon Dioxide 29 Anion Gap 13 BUN 23 H Creatinine 0.79 Estim Creat Clear Calc 68.4 Estimated GFR > 60 POC Glucose 151 H 115 Fasting Glucose 151 H Calcium 9.2 Total Bilirubin 0.1 AST 26 ALT 31 Alkaline Phosphatase 88 Total Protein 6.6 Albumin 3.9 Discharge Plan Discharge Anticipated Discharge Date/Time: 06/03/23 12:26 Patient Disposition: Home, Self-Care Discharge Diagnosis: Acute exacerbation of COPD Referrals: Joe Hale, [employer] [Primary Care Provider] - 1 Week Discharge Medications: New cefuroxime axetil 500 mg tablet 500 mg PO BID 7 Days Qty: 14 0RF prednisone 10 mg tablet See Rx Instructions .Route .COMPLEX Qty: 45 0RF Rx Instructions: 10 mg orally; 5 tabs p.o. daily x3 days; 4 tabs p.o. daily x3 days; 3 tabs daily x3 days; 2 tabs daily x3 days; 1 tab daily x3 days albuterol sulfate 90 mcg/actuation HFA aerosol inhaler 2 puff inhalation QID Qty: 8.5 3RF Continued (DME) lancets [FreeStyle Lancets] 28 gauge misc See Rx Instructions .ROUTE .MEDSUPPLY Qty: 100 1RF Rx Instructions: Use to check blood sugar daily or if symptomatic hypo/hypergylcemia (DME) 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 meter [FreeStyle Lite Meter] Kit See Rx Instructions .ROUTE .MEDSUPPLY Qty: 1 0RF Rx Instructions: Use to check blood sugar daily or if symptomatic for hypo/hyperglycemia (DME) FreeStyle Lite Strips Strip See Rx Instructions .ROUTE .MEDSUPPLY Qty: 100 1RF Rx Instructions: Use to check blood sugar daily or if symptomatic hypo/hypergylcemia losartan 25 mg tablet 25 mg PO DAILY Qty: 90 1RF theophylline 400 mg tablet extended release 24 hr 400 mg PO BID 90 Days Qty: 180 4RF sertraline 100 mg tablet 100 mg PO DAILY 30 Days Qty: 30 4RF ibuprofen 800 mg tablet 800 mg PO BID PRN (Reason: pain) Qty: 60 0RF famotidine [Zantac-360 (famotidine)] 10 mg tablet 10 mg PO BEDTIME Qty: 90 0RF furosemide 20 mg tablet 20 mg PO DAILY 30 Days Qty: 30 6RF lubiprostone [Amitiza] 24 mcg capsule 24 mcg PO BID 30 Days Qty: 60 6RF ipratropium bromide 0.02 % solution 2.5 ml inhalation Q6H PRN (Reason: for wheezing) 30 Days Qty: 187.5 6RF Trulicity 0.75 mg/0.5 mL pen injector 0.75 mg subcut MO@1000 Qty: 6 0RF Rx Instructions: Refill pending Aug appt aspirin 81 mg tablet,delayed release (DR/EC) 81 mg PO DAILY 90 Days Qty: 90 1RF glipizide 5 mg tablet 5 mg PO DAILY 90 Days Qty: 90 0RF tizanidine 4 mg tablet 4 mg PO Q8H PRN (Reason: muscle spasm) 30 Days Qty: 90 0RF gabapentin 800 mg tablet 800 mg PO QID 30 Days Qty: 120 0RF acetaminophen 650 mg tablet extended release 650 mg PO Q12H PRN (Reason: pain) 30 Days Qty: 60 0RF prednisone 20 mg tablet 40 mg PO ONCE Rx Instructions: LAST DOSE TO TAKE: 06/01/23 albuterol sulfate 90 mcg/actuation HFA aerosol inhaler 2 puff inhalation Q6H PRN (Reason: shortness of breath or wheezing) dexlansoprazole [Dexilant] 60 mg capsule,biphase delayed releas 60 mg PO DAILY@0630 Discharge Orders: Discharge Order (Routine); Ordered 06/03/23 Ordered By: Luigi Tipton Diet: Advance to usual diet Activity on Discharge: As tolerated Stand Alone Forms: Patient Portal Discharge page Care Plan Goals: Stop smoking crack cocaine Health Concerns: Complete course of Ceftin 500 mg twice daily for 7 days along with prednisone taper as outlined Plan of Treatment: Follow-up with PCP/pulmonary as scheduled Assessment: See discharge summary
--- NOTE | 2023-06-03 13:37 | MHC.CM.PN ---
PT TO DC HOME TODAY WITH [employer]. DAUGHTER TO TRANSPORT
== END 2023-06-03 13:49 | disposition home or self-care (01) | DRG 133 ==
LOC: HO.ED 17:43 → HO.EDOVER 18:22 → HO.IMC 19:41
PROVIDERS: Admitting Provider Hospitalist; Emergency Provider Emergency Medicine; PCP Nurse Practitioner Family; Visit Provider Hospitalist
DX: J96.20 Acute and chronic respiratory failure, unspecified whether with hypoxia or hypercapnia (principal); J44.1 Chronic obstructive pulmonary disease with (acute) exacerbation; E11.42 Type 2 diabetes mellitus with diabetic polyneuropathy; I10 Essential (primary) hypertension; F14.10 Cocaine abuse, uncomplicated; G47.33 Obstructive sleep apnea (adult) (pediatric); F17.210 Nicotine dependence, cigarettes, uncomplicated; Z20.822 Contact with and (suspected) exposure to COVID-19; Z71.6 Tobacco abuse counseling; Z79.82 Long term (current) use of aspirin; Z79.84 Long term (current) use of oral hypoglycemic drugs; Z79.899 Other long term (current) drug therapy
CPT/HCPCS: 36415; 71045; 80053; 80307; 82803; 82947; 84484; 85025; 87635; 90686; 93005; 94640; 94660; 99285; J0456; J0696; J1650; J2930; J7120

== ENCOUNTER → 2023-06-01 12:43 | Outpatient (BNV) | payer OTHER, SELFPAY | PROVIDERS: Admitting Provider Hospitalist; Emergency Provider Emergency Medicine; PCP Nurse Practitioner Family; Visit Provider Internal Medicine Cardiovascular Disease | DX: I49.1 Atrial premature depolarization (principal); R94.31 Abnormal electrocardiogram [ECG] [EKG] | CPT/HCPCS: 93010 ==

== ENCOUNTER → 2023-06-01 18:17 | Outpatient (BNV) | payer OTHER, SELFPAY | PROVIDERS: Admitting Provider Hospitalist; Emergency Provider Emergency Medicine; PCP Nurse Practitioner Family; Visit Provider Hospitalist | DX: J44.1 Chronic obstructive pulmonary disease with (acute) exacerbation (principal); E11.42 Type 2 diabetes mellitus with diabetic polyneuropathy; I10 Essential (primary) hypertension; F14.90 Cocaine use, unspecified, uncomplicated | CPT/HCPCS: 99223; 99233; 99239 ==

== ENCOUNTER 2023-06-18 10:26 | Outpatient (AMB) | payer OTHER, SELFPAY ==
[2023-06-18 10:28] VITALS: BP 122/72; PULSE 88; O2SAT 95; BMI 33.2
--- NOTE | 2023-06-18 10:28 | A.OFFVIS_ITS ---
Intake Vital Signs 06/18/23 10:28 Height 4 ft 11 in Weight 164 lb 3.91 oz BMI 33.2 BP 122/72 Blood Pressure Location Rt brachial Position Sitting Pulse 88 Pulse Source Doppler Pulse Oximetry (%) 95 Oxygen Delivery Method Room Air Intake Visit Reasons: COPD Allergies doxycycline Allergy (Severe, Verified 06/18/23 10:31) Swelling varenicline [From CHANTIX] Allergy (Severe, Verified 06/18/23 10:31) ANAPHYLAXIS barium sulfate Allergy (Intermediate, Verified 06/18/23 10:31) angioedema azithromycin Allergy (Mild, Verified 06/18/23 10:31) Rash cetirizine Allergy (Mild, Verified 06/18/23 10:31) Rash famotidine Allergy (Mild, Verified 06/18/23 10:31) Rash linaclotide [Linzess] Allergy (Mild, Verified 06/18/23 10:31) Rash HPI COPD HPI Details 53-year-old lady, active 40+ pack-year s moker, with underlying obesity, severe HENRY, followed for dyspnea on exertion and moderate COPD.? She continues to use Stiolto, theophylline, duo nebs, and albuterol MDI with baseline reasonable control of his symptoms.? She does complain of an ongoing exacerbation contemporaneous with substance abuse. Patient has been working on using her CPAP. [facility] Medical History (Updated 06/18/23 @ 10:53 by Kolby Kessler MD) COPD exacerbation COPD (chronic obstructive pulmonary disease) Diabetes mellitus Sleep apnea Crack cocaine use Hyperkalemia Acute exacerbation of COPD with asthma Metabolic acidosis Leukocytosis UTI (urinary tract infection) Acute respiratory failure with hypoxia Chest discomfort Chronic renal failure, stage 2 (mild) Acute and chronic respiratory failure with hypercapnia SOB (shortness of breath) Asthma Encounter for preoperative pulmonary examination Smoker Rotator cuff tendonitis GERD (gastroesophageal reflux disease) Chronic idiopathic constipation Bustos's esophagus Depression High triglycerides Gastroparesis Carpal tunnel syndrome of right wrist Nausea & vomiting Hernia Acute and chronic respiratory failure, unspecified whether with hypoxia or hypercapnia Respiratory failure HTN (hypertension) Obesity (BMI 30-39.9) Knee pain, bilateral Surgical History History of carpal tunnel release Hx of tubal ligation History of pubovaginal sling History of umbilical hernia repair Hx of section History of open reduction and internal fixation (ORIF) procedure Hx of cholecystectomy History of esophagogastroduodenoscopy (EGD) Family History Father Heart disease HENRY (obstructive sleep apnea) Family history of breast cancer Mother Asthma Emphysema, unspecified Bronchitis Smoker Alcoholism Bone marrow disease Maternal Grandmother Diabetes Social History Household Members: Children Household Members Other:: sister Housing: Apartment Are you a primary human services care specialist to a significant other at home: No Do you presently have visiting nurse or other home services: No Unable to assess alcohol history related to: Unknown Alcohol intake: never Comment: Sleeping Patient Tobacco Use Status: Current everyday Tobacco user Tobacco use type: Cigarette Cigarette Packs Per Day: 1 Cigarettes Per Day: 20.0 Years Smoked: 35 e-Cigarette/Vaping Use: Currently Using Second Hand Smoke Exposure: No Substance Use Type: Crack/Cocaine Advance Directives Date on File: 04/15/20 service: No Current occupational status: disabled 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 Review of Systems Const Denies daytime sleepiness, Denies excessive sweating, Denies fatigue, Denies fever(s), Denies lethargy, Denies malaise, Denies night sweats, Denies snoring and Denies weight loss Eyes Denies blurry vision and Denies itchy eyes ENT Denies nasal congestion, Denies post nasal drip, Denies sinus pain, Denies sinus pressure and Denies other ( Thrush) Card Denies chest pain, Denies pedal edema, Denies dyspnea, Reports dyspnea on exertion, Denies orthopnea and Denies paroxysmal nocturnal dyspnea Resp Reports cough, Denies hemoptysis, Reports excessive phlegm production, Denies dyspnea, Reports dyspnea on exertion, Denies snoring and Reports wheezing GI Denies abdominal pain and Denies heartburn Musc Denies myalgias, Denies arthralgias and Denies joint swelling Skin/Breast Denies rash Neuro Denies memory loss and Denies seizure-like activity Psych Denies abnormal sleep pattern, Denies anxiety and Denies memory loss Endo Denies excessive sweating, Denies fatigue and Denies heat intolerance José/Lymph Denies easy bruising Aller/Immun Denies itchy eyes, Denies seasonal rhinorrhea and Reports wheezing Physical Exam Vital Signs: Last Vital Signs Pulse 88 06/18/23 10:28 BP 122/72 06/18/23 10:28 Pulse Ox 95 06/18/23 10:28 Oxygen Delivery Method Room Air 06/18/23 10:28 BMI result Body Mass Index 33.2 Const General: no acute distress and alert Nutritional Appearance: not obese Orientation/consciousness: Other orientation findings ( oriented) HEENT Head: Yes atraumatic Eyes General: appearance normal, both eyes and all related structures Sclerae: sclerae normal EOM: EOMs intact bilaterally Neck Neck: Yes supple Lymphatic: no lymphadenopathy noted Resp Effort & Inspection: normal respiratory effort and no use of accessory muscles Auscultation: wheezes (Expiratory bilateral) Cardio Rate: regular rate Rhythm: regular rhythm Heart sounds: no gallops, no murmurs and no rubs Skin General skin exam: other ( warm) Extrem General: No clubbing, No cyanosis and No edema Office Procedures Nebulizer Treatment Nebulizer Treatment [id number]/MDI RX initial, or Nebulizer Subsequent Treatment Office Meds methylprednisolone sod suc(PF) 125 mg/2 mL solution for injection Performing Provider: Kolby Kessler MD Performing Location: [facility] [place] [facility] Administered by: Sia Norwood LPN on 06/18/23 10:59 Dose Route Admin Location Dispensed Lot Number Expiration Date [facility] Plasma [employer]ting Machine Operator 125 mg IM R buttock 2 mL [id number] 06/30/25 8240-3170-10 [employer] ipratropium 0.5 mg-albuterol 3 mg (2.5 mg base)/3 mL nebulization soln Performing Provider: Kolby Kessler MD Performing Location: [facility] [place] [facility] Administered by: Sia Norwood LPN on 06/18/23 10:59 Dose Route Admin Location Dispensed Lot Number Expiration Date [facility] Plasma [employer]ting Machine Operator 3 mL inhalation 3 mL [id number] 12/28/24 0072-8089-67 [employer] SHERYL Assessment & Plan Assessment & Plan (1) COPD exacerbation: Code(s): J44.1 - Chronic obstructive pulmonary disease with (acute) exacerbation Plan: Now with an acute exacerbation, will treat with a course of prednisone and Levaquin. Continue baseline regimen of Stiolto, theophylline, duo nebs, and albuterol MDI. (2) HENRY (obstructive sleep apnea): Code(s): G47.33 - Obstructive sleep apnea (adult) (pediatric) Plan: Patient has been having difficulties using full face mask. Patient would like to try nasal pillows. Orders: Orders AMB Nebulizer Treatment Today J44.1 - Chronic obstructive pulmonary disease with (acute) exacerbation AMB Methylprednisolone Injection Today J44.9 - Chronic obstructive pulmonary disease, unspecified Medications: New levofloxacin 500 mg PO DAILY 7 tabs 0RF prednisone Take four tabs daily for 5 days, then go down by 1 tab every 5 days 10 mg PO DIRECTED 50 tabs 0RF Discontinued prednisone Discontinued Reason: Doctor's Order 10 mg orally; 5 tabs p.o. daily x3 days; 4 tabs p.o. daily x3 days; 3 tabs daily x3 days; 2 tabs daily x3 days; 1 tab daily x3 days 45 tabs 0RF Coding Level of Care Code Est Pt Level 4 (65636) Diagnoses COPD exacerbation J44.1 HENRY (obstructive sleep apnea) G47.33 CPT Codes Nebulizer Treatment - Nebulizer Treatment, initial or subsequent: 13485- Nebulizer/MDI RX initial, or Nebulizer Subsequent Treatment ([id number])
== END 2023-06-18 11:03 | disposition home or self-care (01) ==
PROVIDERS: PCP Nurse Practitioner Family; Visit Provider Internal Medicine Pulmonary Disease
DX: J44.1 Chronic obstructive pulmonary disease with (acute) exacerbation (principal); G47.33 Obstructive sleep apnea (adult) (pediatric); J44.9 Chronic obstructive pulmonary disease, unspecified
CPT/HCPCS: 99214

== ENCOUNTER → 2023-06-18 10:26 | Outpatient (BNVA) | payer OTHER, SELFPAY | PROVIDERS: PCP Nurse Practitioner Family; Visit Provider Internal Medicine Pulmonary Disease | DX: J44.1 Chronic obstructive pulmonary disease with (acute) exacerbation (principal); G47.33 Obstructive sleep apnea (adult) (pediatric) | CPT/HCPCS: 94640; 96372; 99212; J2930 ==

== ENCOUNTER 2023-08-06 08:51 | Outpatient (AMB) | payer OTHER, SELFPAY ==
[2023-08-06 09:02] VITALS: BP 150/88; PULSE 84; O2SAT 95; BMI 34.0
--- NOTE | 2023-08-06 09:02 | A.OFFPC_ITS ---
Vital Signs 08/06/23 09:02 Height 4 ft 11 in Weight 168 lb 4 oz BMI 34.0 BP 150/88 H Blood Pressure Location Rt brachial Position Sitting Pulse 84 Pulse Source Pulse Oximeter Pulse Oximetry (%) 95 Oxygen Delivery Method Room Air Intake Visit Reasons: Annual PE Intake Note: Pt is here for her Annual PE Allergies doxycycline Allergy (Severe, Verified 08/06/23 09:06) Swelling varenicline [From CHANTIX] Allergy (Severe, Verified 08/06/23 09:06) ANAPHYLAXIS barium sulfate Allergy (Intermediate, Verified 08/06/23 09:06) angioedema azithromycin Allergy (Mild, Verified 08/06/23 09:06) Rash cetirizine Allergy (Mild, Verified 08/06/23 09:06) Rash famotidine Allergy (Mild, Verified 08/06/23 09:06) Rash linaclotide [Linzess] Allergy (Mild, Verified 08/06/23 09:06) Rash Tobacco use date assessed: 08/06/23 Dental Screening Dental Screen Date: 08/06/23 Did you have a dental visit in the last 12 months?: No Did you have a dental problem in the last 6 months where you did not have access to dental care?: No Was dental information given to patient?: No HPI Annual PE HPI Details Pt is here for a PE. Will order labs. Pt previously refused colon screen, though now agrees, will refer to GI. Due for mammo, pt initially refused but now agrees, will order. Pt is a diabetic, on an ARB (increasing to 50mg due to HTN). A1C in office today is 5.8. Due for microalbumin, will order. Denies polyuria, polydipsia, and neuropathy. Pt denies any signs and symptoms of hypoglycemia and does know how to correct it. Pt reports that her blood sugar has been around 130. Due for eye exam, will refer. Will have pt stop trulicity due to hx of gastroparesis. Will start farxiga 5mg. Encouraged pt to obtain her pneumonia vaccine at her pharmacy. Pt admits to using crack cocaine on a regular basis. [facility] Medical History Diabetes mellitus COPD exacerbation COPD (chronic obstructive pulmonary disease) Sleep apnea Crack cocaine use Hyperkalemia Acute exacerbation of COPD with asthma Metabolic acidosis Leukocytosis UTI (urinary tract infection) Acute respiratory failure with hypoxia Chest discomfort Chronic renal failure, stage 2 (mild) Acute and chronic respiratory failure with hypercapnia SOB (shortness of breath) Asthma Encounter for preoperative pulmonary examination Smoker Rotator cuff tendonitis GERD (gastroesophageal reflux disease) Chronic idiopathic constipation Bustos's esophagus Depression High triglycerides Gastroparesis Carpal tunnel syndrome of right wrist Nausea & vomiting Hernia Acute and chronic respiratory failure, unspecified whether with hypoxia or hypercapnia Respiratory failure HTN (hypertension) Obesity (BMI 30-39.9) Knee pain, bilateral Surgical History History of carpal tunnel release Hx of tubal ligation History of pubovaginal sling History of umbilical hernia repair Hx of section History of open reduction and internal fixation (ORIF) procedure Hx of cholecystectomy History of esophagogastroduodenoscopy (EGD) Family History Father Heart disease HENRY (obstructive sleep apnea) Family history of breast cancer Mother Asthma Emphysema, unspecified Bronchitis Smoker Alcoholism Bone marrow disease Maternal Grandmother Diabetes Social History Household Members: Children Household Members Other:: sister Housing: Apartment Are you a primary childcare teacher to a significant other at home: No Do you presently have visiting nurse or other home services: No Unable to assess alcohol history related to: Unknown Alcohol intake: never Comment: Sleeping Patient Tobacco Use Status: Current everyday Tobacco user Tobacco use type: Cigarette Cigarette Packs Per Day: 1 Cigarettes Per Day: 20.0 Years Smoked: 35 e-Cigarette/Vaping Use: Currently Using Second Hand Smoke Exposure: No Substance Use Type: Crack/Cocaine Advance Directives Date on File: 04/15/20 service: No Current occupational status: disabled 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 1. Little interest or pleasure in doing things: several days 2. Feeling down, depressed, or hopeless: more than half the days 3. Trouble falling or staying asleep, or sleeping too much: not at all 4. Feeling tired or having little energy: not at all 5. Poor appetite or overeating: not at all 6. Feeling bad about yourself - or that you are a failure or have let yourself or your family down: several days 7. Trouble concentrating on things, such as reading the newspaper or watching television: not at all 8. Moving or speaking so slowly that other people could have noticed. Or the opposite - being so fidgety or restless that you have been moving around a lot more than usual: several days 9. Thoughts that you would be better off or of hurting yourself in some way: more than half the days Total score: 7 Source: Developed by Drs. Dalton Nelson, Zoila Dowell, Parveen Erazo and colleagues, with an educational georgiana from [employer]. Thrive Questionnaire Date Thrive assessed: 08/06/23 What is your living situation today?: I have a steady place to live Within the past 12 months, did the food you bought not last and you didn't have the money to get more?: Often true Within the past 12 months, did you worry whether your food would run out before you got money to buy more?: Often true Do you have trouble paying for medicines?: Yes Do you have trouble getting transportation to medical appointments?: Yes Do you have trouble paying your heating and electricity bill?: No Do you have trouble taking care of your child, family member or friend?: No Do you have trouble with day-to-day activities such as bathing, preparing meals, shopping, managing finances, etc.?: Yes Are you currently unemployed and looking for a job?: No Are you interested in more education?: No THRIVE Score: 3 AUDIT C Alcohol Use Questionnaire (AUDIT-C) 1. How often do you have a drink containing alcohol?: Never Total Score: 0 BAHMAN-7 AMB Questionnaire BAHMAN-7 Date BAHMAN - 7 assessed: 08/06/23 Feeling nervous, anxious, or on edge: 2 = More than half the days Not being able to stop or control worryin = More than half the days Worrying too much about different things: 2 = More than half the days Trouble relaxin = Nearly every day Being so restless that it is hard to sit still: 1 = Several days Becoming easily annoyed or irritable: 3 = Nearly every day Feeling afraid as if something awful might happen: 0 = Not at all Total BAHMAN-7 score (0-4 normal; 5-9 mild; 10-14 moderate; 15-21 severe): 13 Source: Developed by Drs. Dalton Nelson, Zoila Dowell, Parveen Erazo and colleagues, with an educational georgiana from [employer]. Review of Systems Const Denies chills and Denies fever(s) Eyes Denies blurry vision ENT Denies vertigo, Denies dizziness and Denies sore throat Card Denies chest pain at rest, Denies chest pain with activity, Denies diaphoresis, Denies dyspnea and Denies dyspnea on exertion Resp Denies cough, Denies dyspnea, Denies dyspnea on exertion and Denies wheezing GI Denies abdominal pain, Denies melena, Denies hematochezia, Denies constipation, Denies diarrhea and Denies loose stools Denies hematuria Musc Denies numbness and Denies tingling Skin/Breast Denies lesions Neuro Denies vertigo, Denies dizziness, Denies numbness and Denies tingling Psych Denies anxiety, Denies depression, Denies homicidal ideation, Denies suicidal ideation and Denies other (substance abuse) Aller/Immun Denies wheezing Physical exam (Primary Care) Vital Signs: Last Vital Signs Pulse 84 08/06/23 09:02 BP 150/88 H 08/06/23 09:02 Pulse Ox 95 08/06/23 09:02 Oxygen Delivery Method Room Air 08/06/23 09:02 BMI result Body Mass Index 34.0 Tobacco/Smoking Status: Tobacco use Status Tobacco use date assessed 08/06/23 08/06/23 09:12 Patient Tobacco Use Status Current everyday Tobacco 08/06/23 09:12 Tobacco use type Cigarette 08/06/23 09:12 e-Cigarette/Vaping Use Currently Using 08/06/23 09:12 PHQ-9: PHQ-9 Score PHQ-9: Total score 7 08/06/23 11:07 Thrive Assessment: Date of Thrive Assessment Date Thrive assessed 08/06/23 08/06/23 11:07 Const General: cooperative Nutritional Appearance: well nourished Orientation/consciousness: patient oriented x3 HENMT Head: Yes normal to inspection, Yes normocephalic and Yes atraumatic Ears: TM's normal bilaterally Eyes General: appearance normal, both eyes and all related structures Alignment and Position: alignment normal and position normal Neck Neck: Yes normal visual inspection and Yes no lymphadenopathy Thyroid: Thyroid normal Resp Other: wheezing with exhalation (grunt) Effort & Inspection: normal respiratory effort Cardio Rate: regular rate Rhythm: regular rhythm Heart sounds: S1 normal heart sound present, S2 normal heart sound present and no murmurs GI Palpation (GI): Soft to palpation and nontender Auscultation: normal bowel sounds Skin Rashes: no rashes Neuro General: patient oriented x3, moves all extremities, no focal motor deficits and deep tendon reflexes 2+ bilaterally Romberg Test: Negative Extrem Other: feet intact, + sensation Psych Appearance: grossly normal Mental Status: mental status grossly normal Speech and movement: Normal speech and movement present Affect: normal affect Attitude: cooperative Thought process: Normal thought process present Thought content: Normal thought content present Insight: Good insight present (Psych) Judgement: Good judgement present (Psych) Results AMB Hemoglobin A1c AMB Hemoglobin A1c 5.8 % Last Edit by Vandana Hoover CMA on 08/06/23 09: 28 Results Reviewed Results Reviewed: Laboratory Last Values Hgb A1c (Clinic) 5.8 % (4.0-6.0) 08/06/23 09:20 Assessment and Plan Assessment & Plan (1) Screening for colon cancer: Code(s): Z12.11 - Encounter for screening for malignant neoplasm of colon Plan: Referred to GI (2) Diabetes mellitus: Code(s): E11.9 - Type 2 diabetes mellitus without complications Qualifiers: Diabetes mellitus complication detail: with polyneuropathy Diabetes mellitus complication status: with neurologic complications Diabetes mellitus buttermaker continuous churn insulin use: without buttermaker continuous churn use Diabetes mellitus type: type 2 Qualified Code(s): E11.42 - Type 2 diabetes mellitus with diabetic polyneuropathy Plan: Stopping trulicity, starting farxiga, microalbumin ordered, referred for eye exam (3) Physical exam: Code(s): Z00.00 - Encounter for general adult medical examination without abnormal findings Plan: Labs ordered Plan The patient agreed to the use of a medical and health services manager for this encounter. Scribed for KATINA Rubio by santo Lugo scribe, on 08/06/2023 at 09:25 EST. Orders: Orders AMB Hemoglobin A1c Today E11.9 - Type 2 diabetes mellitus without complications Complete Blood Count Auto Diff Today Z00.00 - Encounter for general adult medical examination without abnormal findings TSH reflex Free T4 Today Z00.00 - Encounter for general adult medical examination without abnormal findings MM screening mammo BI Today Z12.31 - Encounter for screening mammogram for malignant neoplasm of breast Microalbumin, Random (w Creat) Today E11.9 - Type 2 diabetes mellitus without complications Comprehensive [place]. Panel Fast Today Z00.00 - Encounter for general adult medical examination without abnormal findings UA CC w/rflx Micro + Cult Today Z00.00 - Encounter for general adult medical examination without abnormal findings Lipid Panel Today Z00.00 - Encounter for general adult medical examination without abnormal findings Referrals Gastroenterology Referral Z12.11 - Encounter for screening for malignant neoplasm of colon Ophthalmology Referral E11.9 - Type 2 diabetes mellitus without complications Medications: New dapagliflozin propanediol (Farxiga) 5 mg PO DAILY 90 tabs 0RF Changed From losartan 25 mg PO DAILY 90 tabs 1RF To losartan 50 mg PO DAILY 90 tabs 1RF Discontinued dulaglutide (Trulicity) Refill pending Aug appt Discontinued Reason: Doctor's Order 0.75 mg (0.5 mL) subcut MO@1000 6 mL 0RF Coding Level of Care Code Est Pt Prev Care 40-64y(37418) Diagnoses Screening for colon cancer Z12.11 Type 2 diabetes mellitus with diabetic polyneuropathy, without long-term current use of insulin E11.42 Diabetes mellitus complication detail: with polyneuropathy Diabetes mellitus complication status: with neurologic complications Diabetes mellitus buttermaker continuous churn insulin use: without buttermaker continuous churn use Diabetes mellitus type: type 2 Physical exam Z00.00
== END 2023-08-06 09:57 | disposition home or self-care (01) ==
PROVIDERS: PCP Nurse Practitioner Family; Visit Provider Nurse Practitioner Family
DX: Z00.00 Encounter for general adult medical examination without abnormal findings (principal); Z12.11 Encounter for screening for malignant neoplasm of colon; E11.42 Type 2 diabetes mellitus with diabetic polyneuropathy
CPT/HCPCS: 83036; 99396

== ENCOUNTER 2023-08-13 10:41 | Outpatient (AMB) | payer OTHER, SELFPAY ==
--- NOTE | 2023-08-13 10:41 | A.OFFVIS_ITS ---
Intake Intake Visit Reasons: COPD Allergies doxycycline Allergy (Severe, Verified 08/06/23 09:06) Swelling varenicline [From CHANTIX] Allergy (Severe, Verified 08/06/23 09:06) ANAPHYLAXIS barium sulfate Allergy (Intermediate, Verified 08/06/23 09:06) angioedema azithromycin Allergy (Mild, Verified 08/06/23 09:06) Rash cetirizine Allergy (Mild, Verified 08/06/23 09:06) Rash famotidine Allergy (Mild, Verified 08/06/23 09:06) Rash linaclotide [Linzess] Allergy (Mild, Verified 08/06/23 09:06) Rash HPI COPD HPI Details 53-year-old lady, active 40+ pack-year s moker, with underlying obesity, severe HENRY, followed for dyspnea on exertion and moderate COPD. She continues to use Stiolto, theophylline, duo nebs, and albuterol MDI with baseline reasonable control of her symptoms. Patient continues to work on trying to improve her CPAP compliance. At this time she wants to try nasal mask. Patient does complain of ongoing exacerbation symptomatic with wheezing and cough productive of grayish sputum. PENDING SALE TO [facility] Medical History Diabetes mellitus COPD exacerbation COPD (chronic obstructive pulmonary disease) Sleep apnea Crack cocaine use Hyperkalemia Acute exacerbation of COPD with asthma Metabolic acidosis Leukocytosis UTI (urinary tract infection) Acute respiratory failure with hypoxia Chest discomfort Chronic renal failure, stage 2 (mild) Acute and chronic respiratory failure with hypercapnia SOB (shortness of breath) Asthma Encounter for preoperative pulmonary examination Smoker Rotator cuff tendonitis GERD (gastroesophageal reflux disease) Chronic idiopathic constipation Bustos's esophagus Depression High triglycerides Gastroparesis Carpal tunnel syndrome of right wrist Nausea & vomiting Hernia Acute and chronic respiratory failure, unspecified whether with hypoxia or hypercapnia Respiratory failure HTN (hypertension) Obesity (BMI 30-39.9) Knee pain, bilateral Surgical History History of carpal tunnel release Hx of tubal ligation History of pubovaginal sling History of umbilical hernia repair Hx of section History of open reduction and internal fixation (ORIF) procedure Hx of cholecystectomy History of esophagogastroduodenoscopy (EGD) Family History Father Heart disease HENRY (obstructive sleep apnea) Family history of breast cancer Mother Asthma Emphysema, unspecified Bronchitis Smoker Alcoholism Bone marrow disease Maternal Grandmother Diabetes Social History Household Members: Children Household Members Other:: sister Housing: Apartment Are you a primary healthcare economics consultant to a significant other at home: No Do you presently have visiting nurse or other home services: No Unable to assess alcohol history related to: Unknown Alcohol intake: never Comment: Sleeping Patient Tobacco Use Status: Current everyday Tobacco user Tobacco use type: Cigarette Cigarette Packs Per Day: 1 Cigarettes Per Day: 20.0 Years Smoked: 35 e-Cigarette/Vaping Use: Currently Using Second Hand Smoke Exposure: No Substance Use Type: Crack/Cocaine Advance Directives Date on File: 04/15/20 service: No Current occupational status: disabled 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 Review of Systems Const Denies daytime sleepiness, Denies excessive sweating, Denies fatigue, Denies fever(s), Denies lethargy, Denies malaise, Denies night sweats, Denies snoring and Denies weight loss Eyes Denies blurry vision and Denies itchy eyes ENT Denies nasal congestion, Denies post nasal drip, Denies sinus pain, Denies sinus pressure and Denies other ( Thrush) Card Denies chest pain, Denies pedal edema, Denies dyspnea, Denies orthopnea and Denies paroxysmal nocturnal dyspnea Resp Reports cough, Denies hemoptysis, Reports excessive phlegm production, Denies dyspnea, Denies snoring and Reports wheezing GI Denies abdominal pain and Denies heartburn Musc Denies myalgias, Denies arthralgias and Denies joint swelling Skin/Breast Denies rash Neuro Denies memory loss and Denies seizure-like activity Psych Denies abnormal sleep pattern, Denies anxiety and Denies memory loss Endo Denies excessive sweating, Denies fatigue and Denies heat intolerance José/Lymph Denies easy bruising Aller/Immun Denies itchy eyes, Denies seasonal rhinorrhea and Reports wheezing Assessment & Plan Assessment & Plan (1) COPD exacerbation: Code(s): J44.1 - Chronic obstructive pulmonary disease with (acute) exacerbation Plan: Baseline controlled on Stiolto and albuterol MDI. Continue current regimen. Will treat acute exacerbation with a course of prednisone. (2) HENRY (obstructive sleep apnea): Code(s): G47.33 - Obstructive sleep apnea (adult) (pediatric) Plan: Suboptimal compliance as patient has difficulty adapting to using the mask. Patient would like to try a nasal CPAP mask at this time. Medications: New prednisone 40 mg (2 x 20 mg) PO DAILY 10 tabs 0RF Telehealth Telehealth Location of patient: address on file Patient Identification confirmed using: Name, : Yes Telehealth method: voice only Patient verbally consented to treatment: Yes Patient verbally consented to billing insurance company: Yes Patient informed of any privacy concerns related to visit: Yes Coding Level of Care Code Tele Est Pt Level 4 (07529) Diagnoses COPD exacerbation J44.1 HENRY (obstructive sleep apnea) G47.33 Time Spent (min) 20
== END 2023-08-13 10:56 | disposition home or self-care (01) ==
LOC: HO.HPS 10:41
PROVIDERS: PCP Nurse Practitioner Family; Visit Provider Internal Medicine Pulmonary Disease
DX: J44.1 Chronic obstructive pulmonary disease with (acute) exacerbation (principal); G47.33 Obstructive sleep apnea (adult) (pediatric)
CPT/HCPCS: 99214

== ENCOUNTER → 2023-08-13 10:41 | Outpatient (BNVA) | payer OTHER, SELFPAY | PROVIDERS: PCP Nurse Practitioner Family; Visit Provider Internal Medicine Pulmonary Disease | DX: J44.1 Chronic obstructive pulmonary disease with (acute) exacerbation (principal); J44.9 Chronic obstructive pulmonary disease, unspecified ==

== ENCOUNTER 2023-10-10 11:09 | Outpatient (AMB) | payer OTHER, SELFPAY ==
--- NOTE | 2023-10-10 11:14 | MHC.OFFVIS ---
Intake Vital Signs 10/10/23 11:15 Height 4 ft 11 in Weight 184 lb 1.376 oz BMI 37.2 BP 118/70 Blood Pressure Location Rt brachial Position Sitting Pulse 108 H Pulse Source Doppler Pulse Oximetry (%) 94 Oxygen Delivery Method Room Air Intake Visit Reasons: asthma Allergies doxycycline Allergy (Severe, Verified 08/06/23 09:06) Swelling varenicline [From CHANTIX] Allergy (Severe, Verified 08/06/23 09:06) ANAPHYLAXIS barium sulfate Allergy (Intermediate, Verified 08/06/23 09:06) angioedema azithromycin Allergy (Mild, Verified 08/06/23 09:06) Rash cetirizine Allergy (Mild, Verified 08/06/23 09:06) Rash famotidine Allergy (Mild, Verified 08/06/23 09:06) Rash linaclotide [Linzess] Allergy (Mild, Verified 08/06/23 09:06) Rash HPI asthma HPI Details 53-year-old lady, active 40+ pack-year smoker, with underlying obesity, severe HENRY, followed for dyspnea on exertion and moderate COPD. She continues to use Stiolto, theophylline, duo nebs, and albuterol MDI now with worsening control of her symptoms. Patient continues to work on trying to improve her CPAP compliance. She continues to complain of recurrent exacerbations, again symptomatic with wheezing and dyspnea. [facility] Medical History Diabetes mellitus COPD exacerbation COPD (chronic obstructive pulmonary disease) Sleep apnea Crack cocaine use Hyperkalemia Acute exacerbation of COPD with asthma Metabolic acidosis Leukocytosis UTI (urinary tract infection) Acute respiratory failure with hypoxia Chest discomfort Chronic renal failure, stage 2 (mild) Acute and chronic respiratory failure with hypercapnia SOB (shortness of breath) Asthma Encounter for preoperative pulmonary examination Smoker Rotator cuff tendonitis GERD (gastroesophageal reflux disease) Chronic idiopathic constipation Bustos's esophagus Depression High triglycerides Gastroparesis Carpal tunnel syndrome of right wrist Nausea & vomiting Hernia Acute and chronic respiratory failure, unspecified whether with hypoxia or hypercapnia Respiratory failure HTN (hypertension) Obesity (BMI 30-39.9) Knee pain, bilateral Surgical History History of carpal tunnel release Hx of tubal ligation History of pubovaginal sling History of umbilical hernia repair Hx of section History of open reduction and internal fixation (ORIF) procedure Hx of cholecystectomy History of esophagogastroduodenoscopy (EGD) Family History Father Heart disease HENRY (obstructive sleep apnea) Family history of breast cancer Mother Asthma Emphysema, unspecified Bronchitis Smoker Alcoholism Bone marrow disease Maternal Grandmother Diabetes Social History Household Members: Children Household Members Other:: sister Housing: Apartment Are you a primary child care education coordinator to a significant other at home: No Do you presently have visiting nurse or other home services: No Unable to assess alcohol history related to: Unknown Alcohol intake: never Comment: Sleeping Patient Tobacco Use Status: Current everyday Tobacco user Tobacco use type: Cigarette Cigarette Packs Per Day: 1 Cigarettes Per Day: 20.0 Years Smoked: 35 e-Cigarette/Vaping Use: Currently Using Second Hand Smoke Exposure: No Substance Use Type: Crack/Cocaine Advance Directives Date on File: 04/15/20 service: No Current occupational status: disabled 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 Review of Systems Const Denies daytime sleepiness, Denies excessive sweating, Denies fatigue, Denies fever(s), Denies lethargy, Denies malaise, Denies night sweats, Denies snoring and Denies weight loss Eyes Denies blurry vision and Denies itchy eyes ENT Denies nasal congestion, Denies post nasal drip, Denies sinus pain, Denies sinus pressure and Denies other ( Thrush) Card Denies chest pain, Denies pedal edema, Denies dyspnea, Reports dyspnea on exertion, Denies orthopnea and Denies paroxysmal nocturnal dyspnea Resp Denies cough, Denies hemoptysis, Denies excessive phlegm production, Denies dyspnea, Reports dyspnea on exertion, Denies snoring and Reports wheezing GI Denies abdominal pain and Denies heartburn Musc Denies myalgias, Denies arthralgias and Denies joint swelling Skin/Breast Denies rash Neuro Denies memory loss and Denies seizure-like activity Psych Denies abnormal sleep pattern, Denies anxiety and Denies memory loss Endo Denies excessive sweating, Denies fatigue and Denies heat intolerance José/Lymph Denies easy bruising Aller/Immun Denies itchy eyes, Denies seasonal rhinorrhea and Reports wheezing Physical Exam Vital Signs: Last Vital Signs Pulse 108 H 10/10/23 11:15 BP 118/70 10/10/23 11:15 Pulse Ox 94 10/10/23 11:15 Oxygen Delivery Method Room Air 10/10/23 11:15 BMI result Body Mass Index 37.2 Const General: no acute distress and alert Nutritional Appearance: obese Orientation/consciousness: Other orientation findings ( oriented) HEENT Head: Yes atraumatic Eyes General: appearance normal, both eyes and all related structures Sclerae: sclerae normal EOM: EOMs intact bilaterally Neck Neck: Yes supple Lymphatic: no lymphadenopathy noted Resp Effort & Inspection: normal respiratory effort and no use of accessory muscles Auscultation: wheezes expiratory wheezes (Bilateral) Cardio Rate: regular rate Rhythm: regular rhythm Heart sounds: no gallops, no murmurs and no rubs Skin General skin exam: other ( warm) Extrem General: No clubbing, No cyanosis and No edema Assessment & Plan Assessment & Plan (1) COPD exacerbation: Code(s): J44.1 - Chronic obstructive pulmonary disease with (acute) exacerbation Plan: Recurrent acute exacerbation. Will treat. Will start on daily 7.5 mg prednisone continue baseline regimen of Stiolto, theophylline, and albuterol MDI/nebs. (2) HENRY (obstructive sleep apnea): Code(s): G47.33 - Obstructive sleep apnea (adult) (pediatric) Plan: Patient continues to work on her CPAP compliance. Coding Level of Care Code Est Pt Level 4 (28338) Diagnoses COPD exacerbation J44.1 HENRY (obstructive sleep apnea) G47.33
[2023-10-10 11:15] VITALS: BP 118/70; PULSE 108; O2SAT 94; BMI 37.2
== END 2023-10-10 11:32 | disposition home or self-care (01) ==
PROVIDERS: PCP Nurse Practitioner Family; Visit Provider Internal Medicine Pulmonary Disease
DX: J44.1 Chronic obstructive pulmonary disease with (acute) exacerbation (principal); G47.33 Obstructive sleep apnea (adult) (pediatric)
CPT/HCPCS: 99214

== ENCOUNTER → 2023-10-10 11:09 | Outpatient (BNVA) | payer OTHER, SELFPAY | PROVIDERS: PCP Nurse Practitioner Family; Visit Provider Internal Medicine Pulmonary Disease | DX: J44.1 Chronic obstructive pulmonary disease with (acute) exacerbation (principal); G47.33 Obstructive sleep apnea (adult) (pediatric) | CPT/HCPCS: 96372; 99212; J2919; J2930 ==

== ENCOUNTER 2023-11-08 01:44 | Observation (INO) | payer OTHER, SELFPAY ==
[2023-11-08] VITALS (7 sets, daily range): BP systolic 122–143; BP diastolic 65–88; PULSE 86–99; RESP 19–32; TEMP 36.4–36.8; O2SAT 93–99; BMI 33.7
--- NOTE | ~2023-11-08 | XR_ITS ---
EXAMINATION: XR CHEST CLINICAL INFORMATION: Shortness of breath COMPARISON: 06/01/2023 TECHNIQUE: Frontal view of the chest was obtained. FINDINGS: The lungs appear hyperinflated. No focal consolidation is seen. No evidence of pneumothorax, significant pleural effusion, or overt pulmonary edema. Cardiac size is within normal limits. Calcification is present at the aortic arch. No acute osseous findings are seen. XR/XR chest 1V IMPRESSION: No acute pulmonary findings. Hyperinflated lungs suggesting COPD.
--- NOTE | 2023-11-08 01:55 | ECG_ITS ---
Test Reason : SOB Blood Pressure : / mmHG Vent. Rate : 084 BPM Atrial Rate : 084 BPM P-R Int : 122 ms QRS Dur : 082 ms QT Int : 380 ms P-R-T Axes : 071 128 069 degrees QTc Int : 449 ms Sinus rhythm with Premature atrial complexes with Aberrant conduction Low voltage QRS Left posterior fascicular block Abnormal ECG When compared with ECG of 01-JUN-2023 13:10, No significant change was found Referred By: Ly Bazan Electronically Signed By:Dallin [place]
--- NOTE | 2023-11-08 01:56 | ED_ITS ---
HPI - SOB/Dyspnea General Chief Complaint: Dyspnea Stated Complaint: SOB Time Seen by Provider: 11/08/23 01:52 Source: patient and EMS Mode of arrival: EMS Limitations: other History of Present Illness HPI Narrative: Patient comes to the emergency room complaining of shortness of breath. Patient states that starting today she started feeling very short of breath. Patient used a nebulization treatment without any effect. When patient called EMS, patient's oxygen saturation was 91% on room air. Patient was given 2 DuoNebs EN route to the hospital. Patient denies any chest pain. No lower extremity edema. Patient does have history of COPD, not oxygen dependent. Related Data Home Medications ?Medication ?Instructions ?Recorded ?Confirmed albuterol sulfate 90 mcg/actuation 2 puff inhalation Q6H PRN 06/01/23 06/01/23 aerosol inhaler shortness of breath or wheezing Previous Rx's ?Medication ?Instructions ?Recorded lancets 28 gauge (FreeStyle #100 ea 01/20/21 Lancets) 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 meter (FreeStyle #1 ea 03/01/22 Lite Meter kit) blood sugar diagnostic (FreeStyle #100 ea 09/16/22 Lite Strips) theophylline 400 mg 400 mg PO BID 90 days #180 tabs 12/24/22 tablet,extended release 24 hr lubiprostone 24 mcg capsule 24 mcg PO BID 30 days #60 caps 04/24/23 (Amitiza) ipratropium bromide 0.02 % 2.5 ml inhalation Q6H PRN for 04/25/23 solution for inhalation wheezing 30 days #187.5 mL albuterol sulfate 90 mcg/actuation 2 puff inhalation QID #8.5 grams 06/03/23 aerosol inhaler famotidine 10 mg tablet (Heartburn 10 mg PO BEDTIME #90 tabs 07/22/23 Relief (famotidine)) losartan 50 mg tablet 50 mg PO DAILY #90 tabs 08/06/23 Jardiance 10 mg tablet 10 mg PO QAM #30 tabs 09/08/23 (empagliflozin) prednisone 10 mg tablet 10 mg PO DIRECTED #70 tabs 09/23/23 furosemide 20 mg tablet 20 mg PO DAILY #90 tabs 09/24/23 aspirin 81 mg tablet,delayed 81 mg PO DAILY 90 days #90 tabs 09/25/23 release dexlansoprazole 60 mg 60 mg PO DAILY #90 caps 09/25/23 capsule,biphase delayed release (Dexilant) calcium carbonate 500 mg-vitamin 1 tab PO BID 30 days #60 tabs 10/10/23 D3 10 mcg (400 unit) tablet prednisone 2.5 mg tablet 7.5 mg (3 x 2.5 mg) PO DAILY 30 10/10/23 days #90 tabs glipizide 5 mg tablet 5 mg PO DAILY 90 days #90 tabs 10/11/23 gabapentin 800 mg tablet 800 mg PO QID #120 tabs 10/12/23 acetaminophen 650 mg 650 mg PO Q12H PRN pain 30 days 10/28/23 tablet,extended release #60 tabs ibuprofen 800 mg tablet 800 mg PO BID PRN pain #60 tabs 10/28/23 tizanidine 4 mg tablet 4 mg PO Q8H PRN muscle spasm 30 10/28/23 days #90 tabs sertraline 100 mg tablet 100 mg PO DAILY #90 tabs 11/06/23 Allergies Allergy/AdvReac Type Severity Reaction Status Date / Time doxycycline Allergy Severe Swelling Verified 11/08/23 01:53 varenicline [From CHANTIX] Allergy Severe ANAPHYLAXIS Verified 11/08/23 01:53 barium sulfate Allergy Intermediate angioedema Verified 11/08/23 01:53 azithromycin Allergy Mild Rash Verified 11/08/23 01:53 cetirizine Allergy Mild Rash Verified 11/08/23 01:53 famotidine Allergy Mild Rash Verified 11/08/23 01:53 linaclotide [Linzess] Allergy Mild Rash Verified 11/08/23 01:53 Review of Systems 2 Review of Systems: Constitutional : No Weight loss, No Fever, No Chills, No Night Sweats, No Fatigue, No Malaise ENT/Mouth : No Hearing loss, No Ear Pain, No Nasal Congestion, No Sinus Pain, No Hoarseness, No sore throat, No Rhinorrhea, No Swallowing Difficulty Eyes: No Eye Pain, No Swelling, No Redness, No Foreign Body, No Discharge, No Vision Changes Cardiovascular : No Chest Pain, No SOB, No Dyspnea on Exertion, No Orthopnea, No Edema, No Palpitations Respiratory : Complaining of cough, wheezing and shortness of breath Gastrointestinal : No Nausea, No Vomiting, No Diarrhea, No Constipation, No abdominal Pain, No Hematochezia, No Melena Genitourinary : no irregular bleeding, No Dysuria, No Urinary Frequency, No Hematuria, No Urinary Incontinence, No Urgency, No Flank Pain, No Urinary Flow Changes, No Hesitancy Musculoskeletal : No joint pain, No Myalgias, No Joint Swelling Skin : No Skin Lesions, No rash Neuro : No Weakness, No Numbness, No Paresthesias, No Loss of Consciousness, No Dizziness, No Headache Psych : No Anxiety/Panic, No Depression, No SI/HI/AH/VH, No Social Issues, Heme/Lymph: No Bruising, No Bleeding,No Lymphadenopathy Endocrine : No Polyuria, No Polydipsia, No Temperature Intolerance [facility] Past Medical History Medical History Diabetes mellitus COPD exacerbation COPD (chronic obstructive pulmonary disease) Sleep apnea Crack cocaine use Hyperkalemia Acute exacerbation of COPD with asthma Metabolic acidosis Leukocytosis UTI (urinary tract infection) Acute respiratory failure with hypoxia Chest discomfort Chronic renal failure, stage 2 (mild) Acute and chronic respiratory failure with hypercapnia SOB (shortness of breath) Asthma Encounter for preoperative pulmonary examination Smoker Rotator cuff tendonitis GERD (gastroesophageal reflux disease) Chronic idiopathic constipation Bustos's esophagus Depression High triglycerides Gastroparesis Carpal tunnel syndrome of right wrist Nausea & vomiting Hernia Acute and chronic respiratory failure, unspecified whether with hypoxia or hypercapnia Respiratory failure HTN (hypertension) Obesity (BMI 30-39.9) Knee pain, bilateral Surgical History History of carpal tunnel release Hx of tubal ligation History of pubovaginal sling History of umbilical hernia repair Hx of section History of open reduction and internal fixation (ORIF) procedure Hx of cholecystectomy History of esophagogastroduodenoscopy (EGD) Family History Family History Father Heart disease HENRY (obstructive sleep apnea) Family history of breast cancer Mother Asthma Emphysema, unspecified Bronchitis Smoker Alcoholism Bone marrow disease Maternal Grandmother Diabetes Social History Social History Household Members: Children Household Members Other:: sister Housing: Apartment Are you a primary day care assistant to a significant other at home: No Do you presently have visiting nurse or other home services: No Unable to assess alcohol history related to: Unknown Alcohol intake: former Comment: Sleeping Patient Tobacco Use Status: Current everyday Tobacco user Tobacco use type: Cigarette Cigarette Packs Per Day: 1 Cigarettes Per Day: 20.0 Years Smoked: 35 Smoked in Last 30 Days: Yes e-Cigarette/Vaping Use: Currently Using Second Hand Smoke Exposure: No Use of substances other than those prescribed or required for medical reasons: Yes Substance Use Type: Crack/Cocaine Advance Directives: Yes Advance Directives on File: Yes Advance Directives Date on File: 04/15/20 Do you have a plan to hurt others: No Plan Patient : No service: No Current occupational status: disabled 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 Physical Exam 2 Vital Signs: Vital Signs: Last Vital Signs Temp 97.6 F 11/08/23 03:23 Pulse 98 11/08/23 03:23 Resp 20 11/08/23 03:23 BP 122/65 11/08/23 03:23 Pulse Ox 95 11/08/23 03:23 O2 Del Method Room Air 11/08/23 03:23 BMI result Body Mass Index 33.7 Const: Other: Appearance: Alert. Oriented X3. No acute distress. Eyes: Pupils equal, round and reactive to light. ENT: Pharynx normal. Neck: Normal inspection. Neck supple. No lymph nodes noted. No crepitus CVS: Normal heart rate and rhythm. Pulses normal. Normal S1 and S2 Respiratory: Tachypneic, bilateral wheezing, decreased air movement Abdomen: Soft and nontender. No rigidity. No distention. Skin: Skin warm and dry. Normal skin color. Normal skin turgor. Extremities: No lower extremity edema. No Lacerations. No Rash Neuro: Oriented X 3. No motor deficit. No sensory deficit. Moving all extremities. No slurred speech. CN 2 through 12 grossly intact Psych: calm, cooperative, normal affect Course Course Course Narrative: -all of patient's labs and imaging pending -patient already received 2 DuoNebs, patient getting a bronch protocol, Solu- Medrol, magnesium, ceftriaxone Medications Administered Generic Name Dose Route Start Last Admin Trade Name Freq PRN Reason Stop Dose Admin Magnesium Sulfate 2 gm in 50 mls @ 25 mls/hr 11/08/23 01:53 11/08/23 02:02 Magnesium Sulfate/H2o IV 11/08/23 03:52 25 mls/hr ONCE ONE Administration Discontinued Medications Generic Name Dose Route Start Last Admin Trade Name Brian PRN Reason Stop Dose Admin Albuterol Sulfate 2.5 mg/ 5 mg 11/08/23 03:11 11/08/23 03:15 Albuterol Sulfate 2.5 mg INHALE 11/08/23 03:12 5 mg ONCE ONE Administration Albuterol Sulfate 7.5 mg/ 0 mg 11/08/23 02:06 11/08/23 02:10 Albuterol/Ipratropium 3 ml INHALE 11/08/23 02:07 2.5 each ONCE ONE Administration Ceftriaxone Sodium 1 gm/ 50 mls @ 100 mls/hr 11/08/23 01:53 11/08/23 02:12 Sodium Chloride IV 11/08/23 02:22 100 mls/hr ONCE ONE Administration Sodium Chloride 1,000 mls @ 999 mls/hr 11/08/23 01:55 11/08/23 02:08 Ns IVCONT 11/08/23 02:55 999 mls/hr .Q1H1M ONE Administration Methylprednisolone Sodium Succinate 125 mg 11/08/23 01:53 11/08/23 02:02 Methylprednisolone Sod Succ 125 Mg/2 Ml Vial IVPUSH 11/08/23 01:54 125 mg ONCE ONE Administration Medical Decision Making Medical Decision Making [facility] Narrative: -when patient arrived, patient was giving IV medications, neb treatment. Put on CPAP. -patient uses CPAP at home, patient does not like to use it, even here patient requested to have taking it off. -my interpretation of labs, white blood cell count 12.4, normal chemistry, bicarb slightly elevated, pCO2 at baseline, serology negative for COVID and influenza. -my interpretation of chest x-ray, no infiltrates, hyperinflated lungs -patient refusing use CPAP. Patient is still tachypneic. Overall, patient would benefit from more steroids and more nebulization treatments. I discussed the patient with Dr. Walton, patient being admitted -sepsis not suspected. Differential Diagnosis Differential Diagnoses: The differential diagnosis associated with the presentation includes (copd, asthma) Admission/Observation Consideration of admission/observation: Escalation of care including admission/observation considered Consult Healthcare Provider Management of the patient was discussed with: Hospitalist Lab Data [facility] Lab Attestation statement: I reviewed the patient's lab results. 11/08/23 02:03 11/08/23 02:05 Labs: Lab Results 11/08/23 11/08/23 11/08/23 Range/Units 02:03 02:04 02:05 WBC 12.4 H (4.8-10.8) X10*3/uL RBC 4.74 (4.20-5.50) X10*6/uL Hgb 12.2 (12.0-16.0) g/dl Hct 39.1 (37.0-47.0) % MCV 82.5 (80.0-98.0) fL MCH 25.7 L (27.0-33.0) pg MCHC 31.2 (31.0-35.0) g/dl RDW 17.3 H (11.0-16.0) % Plt Count 352 (160-400) X10*3/uL MPV 8.6 L (9.4-12.3) fL Immature Gran % (Auto) 0.4 (0.0-0.4) % Neut % (Auto) 64.9 (45-73) % Lymph % (Auto) 24.4 (20-40) % Cache % (Auto) 7.8 (2-11) % Eos % (Auto) 2.0 (0-4) % Baso % (Auto) 0.5 (0-2) % Lymph # (Auto) 3.0 (1.2-4.9) X10*3/uL Cache # (Auto) 1.0 (0.1-1.2) X10*3/uL Eos # (Auto) 0.3 (0.0-0.4) X10*3/uL Baso # (Auto) 0.1 (0.0-0.2) X10*3/uL Abs Immat Gran (auto) 0.05 H (0.00-0.03) X10*3/uL Absolute Neuts (auto) 8.0 (2.0-8.3) x10*3/uL Absolute Nucleated RBC 0.000 (0.0-0.012) X10*3/uL Nucleated RBC % (auto) 0.0 (0.0-0.2) /100WBC PT 11.0 L (11.1-13.3) SEC INR 0.9 (0.9-1.1) VBG pH (7.32-7.43) VBG pCO2 mmHg VBG pO2 mmHg VBG HCO3 (22-26) mmol/L VBG O2 Saturation % VBG Base Excess mmol/L Sodium 141 (135-145) mmol/L Potassium 4.3 (3.3-5.1) mmol/L Chloride 102 (96-108) mmol/L Carbon Dioxide 30 H (22-29) mmol/L Anion Gap 13 (12-20) BUN 18 H (9-16) mg/dL Creatinine 0.87 (0.5-1.4) mg/dL Estim Creat Clear Calc 76.0 Estimated GFR > 60 Random Glucose 149 H (60-115) mg/dL Lactic Acid 0.8 (0.5-2.0) mmol/L Calcium 9.1 (8.4-10.2) mg/dL Total Bilirubin 0.1 (0.0-1.0) mg/dL Direct Bilirubin < 0.2 (0.0-0.5) mg/dL AST 8 (5-31) U/L ALT 9 (0-31) U/L Alkaline Phosphatase 91 (39-117) U/L Troponin I High Sens 10.3 (<3.5-17.0) ng/L B-Natriuretic Peptide 82 (<100) pg/mL Total Protein 6.4 L (6.5-8.0) g/dL Albumin 3.8 (3.5-5.0) g/dL Ethyl Alcohol < 10 mg/dL COVID-19 (LAMBERT) Negative (Negative) COVID-19 Clin Com See Note Influenza Type A (KIM) Negative (Negative) Influenza Type B (KIM) Negative (Negative) Influenza A & B Note See Note 11/08/23 Range/Units 02:06 WBC (4.8-10.8) X10*3/uL RBC (4.20-5.50) X10*6/uL Hgb (12.0-16.0) g/dl Hct (37.0-47.0) % MCV (80.0-98.0) fL MCH (27.0-33.0) pg MCHC (31.0-35.0) g/dl RDW (11.0-16.0) % Plt Count (160-400) X10*3/uL MPV (9.4-12.3) fL Immature Gran % (Auto) (0.0-0.4) % Neut % (Auto) (45-73) % Lymph % (Auto) (20-40) % Cache % (Auto) (2-11) % Eos % (Auto) (0-4) % Baso % (Auto) (0-2) % Lymph # (Auto) (1.2-4.9) X10*3/uL Cache # (Auto) (0.1-1.2) X10*3/uL Eos # (Auto) (0.0-0.4) X10*3/uL Baso # (Auto) (0.0-0.2) X10*3/uL Abs Immat Gran (auto) (0.00-0.03) X10*3/uL Absolute Neuts (auto) (2.0-8.3) x10*3/uL Absolute Nucleated RBC (0.0-0.012) X10*3/uL Nucleated RBC % (auto) (0.0-0.2) /100WBC PT (11.1-13.3) SEC INR (0.9-1.1) VBG pH 7.39 (7.32-7.43) VBG pCO2 55 mmHg VBG pO2 51 mmHg VBG HCO3 34 H (22-26) mmol/L VBG O2 Saturation 85.0 % VBG Base Excess 7.8 mmol/L Sodium (135-145) mmol/L Potassium (3.3-5.1) mmol/L Chloride (96-108) mmol/L Carbon Dioxide (22-29) mmol/L Anion Gap (12-20) BUN (9-16) mg/dL Creatinine (0.5-1.4) mg/dL Estim Creat Clear Calc Estimated GFR Random Glucose (60-115) mg/dL Lactic Acid (0.5-2.0) mmol/L Calcium (8.4-10.2) mg/dL Total Bilirubin (0.0-1.0) mg/dL Direct Bilirubin (0.0-0.5) mg/dL AST (5-31) U/L ALT (0-31) U/L Alkaline Phosphatase (39-117) U/L Troponin I High Sens (<3.5-17.0) ng/L B-Natriuretic Peptide (<100) pg/mL Total Protein (6.5-8.0) g/dL Albumin (3.5-5.0) g/dL Ethyl Alcohol mg/dL COVID-19 (LAMBERT) (Negative) COVID-19 Clin Com Influenza Type A (KIM) (Negative) Influenza Type B (KIM) (Negative) Influenza A & B Note Independent Interpretation I performed an independent interpretation of an: Plain X-Ray Radiology Impression Discussion of test interpretation with radiology: I have reviewed the radiologist's reading. Radiologist Impression: The lungs appear hyperinflated. No focal consolidation is seen. No evidence of pneumothorax, significant pleural effusion, or overt pulmonary edema. Cardiac size is within normal limits. Calcification is present at the aortic arch. No acute osseous findings are seen. XR/XR chest 1V IMPRESSION: No acute pulmonary findings. Hyperinflated lungs suggesting COPD. Independent Historian Clinical information obtained from an independent historian. History obtained from or confirmed by: EMS Critical Care Time Critical Care Time Critical Care Time: Yes Total Critical Care Time: 60 Attestation: I have personally provided critical care time. Time includes review of lab data, radiology results, discussion with consultants, and monitoring for potential decompensation. Intervention performed as documented. Discharge Plan Discharge Clinical Impression: Chronic lung disease Patient Disposition: Admitted As Inpatient Prescriptions: No Action (DME) lancets [FreeStyle Lancets] 28 gauge misc See Rx Instructions .ROUTE .MEDSUPPLY Qty: 100 1RF Rx Instructions: Use to check blood sugar daily or if symptomatic hypo/hypergylcemia (DME) 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 meter [FreeStyle Lite Meter] Kit See Rx Instructions .ROUTE .MEDSUPPLY Qty: 1 0RF Rx Instructions: Use to check blood sugar daily or if symptomatic for hypo/hyperglycemia (DME) FreeStyle Lite Strips Strip See Rx Instructions .ROUTE .MEDSUPPLY Qty: 100 1RF Rx Instructions: Use to check blood sugar daily or if symptomatic hypo/hypergylcemia theophylline 400 mg tablet extended release 24 hr 400 mg PO BID 90 Days Qty: 180 4RF lubiprostone [Amitiza] 24 mcg capsule 24 mcg PO BID 30 Days Qty: 60 6RF ipratropium bromide 0.02 % solution 2.5 ml inhalation Q6H PRN (Reason: for wheezing) 30 Days Qty: 187.5 6RF famotidine [Heartburn Relief (famotidine)] 10 mg tablet 10 mg PO BEDTIME Qty: 90 0RF Jardiance 10 mg tablet 10 mg PO QAM Qty: 30 0RF prednisone 10 mg tablet 10 mg PO DIRECTED Qty: 70 0RF Rx Instructions: Take 4 tabs daily for 7 days, then go down by 1 tab every 7 days furosemide 20 mg tablet 20 mg PO DAILY Qty: 90 3RF aspirin 81 mg tablet,delayed release (DR/EC) 81 mg PO DAILY 90 Days Qty: 90 1RF dexlansoprazole [Dexilant] 60 mg capsule,biphase delayed releas 60 mg PO DAILY Qty: 90 2RF glipizide 5 mg tablet 5 mg PO DAILY 90 Days Qty: 90 0RF gabapentin 800 mg tablet 800 mg PO QID Qty: 120 0RF tizanidine 4 mg tablet 4 mg PO Q8H PRN (Reason: muscle spasm) 30 Days Qty: 90 0RF acetaminophen 650 mg tablet extended release 650 mg PO Q12H PRN (Reason: pain) 30 Days Qty: 60 0RF ibuprofen 800 mg tablet 800 mg PO BID PRN (Reason: pain) Qty: 60 0RF Rx Instructions: please use sparingly due to diabetes sertraline 100 mg tablet 100 mg PO DAILY Qty: 90 0RF albuterol sulfate 90 mcg/actuation HFA aerosol inhaler 2 puff inhalation Q6H PRN (Reason: shortness of breath or wheezing) albuterol sulfate 90 mcg/actuation HFA aerosol inhaler 2 puff inhalation QID Qty: 8.5 3RF losartan 50 mg tablet 50 mg PO DAILY Qty: 90 1RF prednisone 2.5 mg tablet 7.5 mg PO DAILY 30 Days Qty: 90 6RF calcium carbonate-vitamin D3 500 mg-10 mcg (400 unit) tablet 1 tab PO BID 30 Days Qty: 60 6RF Print Language: [place]ar[place]
[2023-11-08] MEDS: methylPREDNISolone Sod Succ 125 MG/2 ML VIAL IVPUSH (02:02)
[2023-11-08] MEDS: Magnesium Sulfate/H2O 2 GM/50 ML PIGGYBACK IV (02:02)
[2023-11-08] MEDS: 0.9 % Sodium Chloride 1,000 ML 999 ML IVCONT (02:08)
[2023-11-08 02:10] LABS: MANUAL DIFF FLAG NO
[2023-11-08] MEDS: Albuterol Sulfate 7.5 MG, Albuterol/Iprat 2.5/0.5MG 3 ML 3 ML INHALE (02:10)
[2023-11-08 02:11] LABS: Basophils Absolute Auto 0.1 X10*3/uL (0.0-0.2); Basophils Percent Auto 0.5 % (0-2); Eosinophils Absolute Auto 0.3 X10*3/uL (0.0-0.4); Hematocrit 39.1 % (37.0-47.0); Hemoglobin 12.2 g/dl (12.0-16.0); Imm Gran Abs Auto 0.05 X10*3/uL (0.00-0.03); Imm Gran Pct Auto 0.4 % (0.0-0.4); Lymphocytes Percent Auto 24.4 % (20-40); Mean Corpuscular HGB Conc 31.2 g/dl (31.0-35.0); Mean Corpuscular Hemoglobin 25.7 pg (27.0-33.0); Mean Corpuscular Volume 82.5 fL (80.0-98.0); Mean Platelet Volume 8.6 fL (9.4-12.3); Monocytes Percent Auto 7.8 % (2-11); Neutrophils Percent Auto 64.9 % (45-73); Platelet Count 352 X10*3/uL (160-400); Red Blood Count 4.74 X10*6/uL (4.20-5.50); Red Cell Distribution Width 17.3 % (11.0-16.0); Venous Blood Gas Refer to POC result; White Blood Count 12.4 X10*3/uL (4.8-10.8)
[2023-11-08] MEDS: cefTRIAXone sodium 1 GM in 0.9 % Sodium Chloride 50 ML IV (02:12)
[2023-11-08 02:14] LABS: VBG Base Excess 7.8 mmol/L; VBG HCO3 34 mmol/L (22-26); VBG pCO2 55 mmHg; VBG pH 7.39 (7.32-7.43); VBG pO2 51 mmHg
[2023-11-08 02:16] LABS: INTERNATIONAL NORM RATIO 0.9 (0.9-1.1)
[2023-11-08 02:22] LABS: Lactic Acid 0.8 mmol/L (0.5-2.0)
[2023-11-08 02:29] LABS: Alanine Aminotransferase 9 U/L (0-31); Albumin Level 3.8 g/dL (3.5-5.0); Alkaline Phosphatase 91 U/L (39-117); Anion Gap 13 (12-20); Aspartate Amino Transferase 8 U/L (5-31); Bilirubin Direct < 0.2 mg/dL (0.0-0.5); Bilirubin Total 0.1 mg/dL (0.0-1.0); Blood Urea Nitrogen 18 mg/dL (9-16); Calcium 9.1 mg/dL (8.4-10.2); Carbon Dioxide 30 mmol/L (22-29); Chloride 102 mmol/L (96-108); Estimated Glomerular Filt Rate > 60; Ethanol < 10 mg/dL; Glucose Random 149 mg/dL (60-115); Potassium 4.3 mmol/L (3.3-5.1); Sodium 141 mmol/L (135-145); Total Protein 6.4 g/dL (6.5-8.0)
[2023-11-08 02:31] LABS: Troponin-I High Sensitivity 10.3 ng/L (<3.5-17.0)
[2023-11-08 02:31] LABS: B Type Natriuretic Peptide 82 pg/mL (<100)
[2023-11-08 02:50] LABS: COVID-19 Test Negative (Negative); IDNOW Serial# 08D9AD1C; IDNOW Serial# 152EDE1D; Influenza A Negative (Negative); Influenza B2 Negative (Negative)
[2023-11-08] MEDS: Albuterol Sulfate 2.5 MG, Albuterol Sulfate (0.083%) 2.5 MG 5 MG INHALE (03:15)
--- NOTE | 2023-11-08 03:25 | P.HPHOSP_ITS ---
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 Patient states her symptoms started 2 days prior to presentation. She has been having cough with minimal sputum production along with dyspnea which is worse with exertion. Has associated wheezing. No chest pain or palpitations. No fever, chills, chest discomfort, abdominal pain, changes in urinary or bowel habits. In the emergency department, patient with wheezing despite multiple DuoNeb treatments. Also received IV steroids Review of Systems 2 Cardiovascular: Cardiovascular: Reports dyspnea on exertion Respiratory: Respiratory: Reports cough, Reports dyspnea on exertion and Reports wheezing Gastrointestinal: Gastrointestinal: Reports no additional gastrointestinal complaints Genitourinary: Genitourinary: Reports no additional female genitourinary complaints Allergic/Immunologic: Allergic/Immunologic: Reports wheezing [facility] Medical History Diabetes mellitus COPD exacerbation COPD (chronic obstructive pulmonary disease) Sleep apnea Crack cocaine use Hyperkalemia Acute exacerbation of COPD with asthma Metabolic acidosis Leukocytosis UTI (urinary tract infection) Acute respiratory failure with hypoxia Chest discomfort Chronic renal failure, stage 2 (mild) Acute and chronic respiratory failure with hypercapnia SOB (shortness of breath) Asthma Encounter for preoperative pulmonary examination Smoker Rotator cuff tendonitis GERD (gastroesophageal reflux disease) Chronic idiopathic constipation Bustos's esophagus Depression High triglycerides Gastroparesis Carpal tunnel syndrome of right wrist Nausea & vomiting Hernia Acute and chronic respiratory failure, unspecified whether with hypoxia or hypercapnia Respiratory failure HTN (hypertension) Obesity (BMI 30-39.9) Knee pain, bilateral Family History Father Heart disease HENRY (obstructive sleep apnea) Family history of breast cancer Mother Asthma Emphysema, unspecified Bronchitis Smoker Alcoholism Bone marrow disease Maternal Grandmother Diabetes Surgical History History of carpal tunnel release Hx of tubal ligation History of pubovaginal sling History of umbilical hernia repair Hx of section History of open reduction and internal fixation (ORIF) procedure Hx of cholecystectomy History of esophagogastroduodenoscopy (EGD) Social History Household Members: Children Household Members Other:: sister Housing: Apartment Are you a primary health care sanitary technician to a significant other at home: No Do you presently have visiting nurse or other home services: No Unable to assess alcohol history related to: Unknown Alcohol intake: former Comment: Sleeping Patient Tobacco Use Status: Current everyday Tobacco user Tobacco use type: Cigarette Cigarette Packs Per Day: 1 Cigarettes Per Day: 20.0 Years Smoked: 35 Smoked in Last 30 Days: Yes e-Cigarette/Vaping Use: Currently Using Second Hand Smoke Exposure: No Use of substances other than those prescribed or required for medical reasons: Yes Substance Use Type: Crack/Cocaine Advance Directives: Yes Advance Directives on File: Yes Advance Directives Date on File: 04/15/20 Do you have a plan to hurt others: No Plan Patient : No service: No Current occupational status: disabled 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 Meds Allergies Allergy/AdvReac Type Severity Reaction Status Date / Time doxycycline Allergy Severe Swelling Verified 11/08/23 01:53 varenicline [From CHANTIX] Allergy Severe ANAPHYLAXIS Verified 11/08/23 01:53 barium sulfate Allergy Intermediate angioedema Verified 11/08/23 01:53 azithromycin Allergy Mild Rash Verified 11/08/23 01:53 cetirizine Allergy Mild Rash Verified 11/08/23 01:53 famotidine Allergy Mild Rash Verified 11/08/23 01:53 linaclotide [Linzess] Allergy Mild Rash Verified 11/08/23 01:53 Active Medications: Current Medications Acetaminophen (Acetaminophen 325 Mg Tablet) 650 mg PO Q6H PRN PRN Reason: Pain, Mild (Pain Scale 1-3) Enoxaparin Sodium (Enoxaparin Sodium 40 Mg/0.4 Ml Syringe) 40 mg SUBCUT Q24H FLOERNCE Magnesium Sulfate (Magnesium Sulfate/H2o) 2 gm in 50 mls @ 25 mls/hr IV ONCE ONE Stop: 11/08/23 03:52 Last Admin: 11/08/23 02:02 Dose: 25 mls/hr Melatonin (Melatonin 3 Mg Tablet) 6 mg PO BEDTIME PRN PRN Reason: Insomnia Ondansetron HCl (Ondansetron Hcl 4 Mg/2 Ml Vial) 4 mg IVPUSH Q8H PRN PRN Reason: Nausea and Vomiting Sodium Chloride (0.9 % Sodium Chloride Flush 3 Ml Syringe) [facility]ations ?Medication ?Instructions ?Recorded ?Confirmed ?Last Taken ?Type albuterol sulfate 90 mcg/actuation 2 puff inhalation Q6H PRN 06/01/23 06/01/23 Unknown History aerosol inhaler shortness of breath or wheezing Physical Exam 2 Vital Signs and Narrative: Vital Signs: Last Vital Signs Temp 97.6 F 11/08/23 03:23 Pulse 98 11/08/23 03:23 Resp 20 11/08/23 03:23 BP 122/65 11/08/23 03:23 Pulse Ox 95 11/08/23 03:23 O2 Del Method Room Air 11/08/23 03:23 BMI result Body Mass Index 33.7 Middle-aged female lying in bed in mild distress Neck supple, no JVD Regular rate and rhythm, S1-S2 heard Tachypnea with bilateral wheezing Abdomen soft nontender, no guarding, no rigidity Patient is awake, alert and oriented to self, place, time and person ; no focal motor deficit Psych: Normal mood No pedal edema Results Labs 11/08/23 02:03 11/08/23 02:05 Labs: Laboratory Results - last 24 hr 11/08/23 11/08/23 11/08/23 02:03 02:04 02:05 MCV 82.5 MCH 25.7 L MCHC 31.2 RDW 17.3 H Plt Count 352 MPV 8.6 L Immature Gran % (Auto) 0.4 Neut % (Auto) 64.9 Lymph % (Auto) 24.4 [place] % (Auto) 7.8 Eos % (Auto) 2.0 Baso % (Auto) 0.5 Lymph # (Auto) 3.0 [place] # (Auto) 1.0 Eos # (Auto) 0.3 Baso # (Auto) 0.1 Abs Immat Gran (auto) 0.05 H Absolute Neuts (auto) 8.0 Absolute Nucleated RBC 0.000 Nucleated RBC % (auto) 0.0 PT 11.0 L INR 0.9 VBG pH VBG pCO2 VBG pO2 VBG HCO3 VBG O2 Saturation VBG Base Excess Anion Gap 13 Estim Creat Clear Calc 76.0 Estimated GFR > 60 Random Glucose 149 H Lactic Acid 0.8 Calcium 9.1 Total Bilirubin 0.1 Direct Bilirubin < 0.2 AST 8 ALT 9 Alkaline Phosphatase 91 Troponin I High Sens 10.3 B-Natriuretic Peptide 82 Total Protein 6.4 L Albumin 3.8 Ethyl Alcohol < 10 COVID-19 (LAMBERT) Negative COVID-19 Clin Com See Note Influenza Type A (KIM) Negative Influenza Type B (KIM) Negative Influenza A & B Note See Note 11/08/23 02:06 MCV MCH MCHC RDW Plt Count MPV Immature Gran % (Auto) Neut % (Auto) Lymph % (Auto) [place] % (Auto) Eos % (Auto) Baso % (Auto) Lymph # (Auto) [place] # (Auto) Eos # (Auto) Baso # (Auto) Abs Immat Gran (auto) Absolute Neuts (auto) Absolute Nucleated RBC Nucleated RBC % (auto) PT INR VBG pH 7.39 VBG pCO2 55 VBG pO2 51 VBG HCO3 34 H VBG O2 Saturation 85.0 VBG Base Excess 7.8 Anion Gap Estim Creat Clear Calc Estimated GFR Random Glucose Lactic Acid Calcium Total Bilirubin Direct Bilirubin AST ALT Alkaline Phosphatase Troponin I High Sens B-Natriuretic Peptide Total Protein Albumin Ethyl Alcohol COVID-19 (LAMBERT) COVID-19 Clin Com Influenza Type A (KIM) Influenza Type B (KIM) Influenza A & B Note Imaging Radiologist's Impressions: Impressions Chest X-Ray 11/08/23 02:33 IMPRESSION: No acute pulmonary findings. Hyperinflated lungs suggesting COPD. Assessment and Plan (1) COPD exacerbation: Status: Acute Plan This is a 52-year-old female with pertinent history of COPD not on home oxygen, HENRY on CPAP, [id number] diabetes mellitus, hypertension, gastroesophageal reflux disease who presents to the emergency department for evaluation of dyspnea. #. Acute respiratory distress due to acute exacerbation of COPD-asthma overlap syndrome: Will admit patient with scheduled and p.r.n. Reed. IV steroids. IV azithromycin for pleiotropic effect. #. Leukocytosis and tachypnea due to above. No sepsis #. HENRY: Continue CPAP at bedtime #. Obesity: Counseled regarding diet and exercise #. Vpl-vwrmhur-gmkqgaikw diabetes mellitus: Initiating Accu-Cheks with sliding scale insulin #. Hypertension: Continue home antihypertensives Med rec pending DVT prophylaxis: Lovenox Full code Quality Stroke Does the patient have a stroke diagnosis?: No VTE Prior VTE?: No VTE Risk Level:: Medical - moderate - high VTE Device Contraindication: Treatment Not Indicated VTE Drug Contraindication: N/A - Med Ordered
[2023-11-08] MEDS: Azithromycin 500 MG in 0.9 % Sodium Chloride 250 ML 125 MG IV (04:33)
[2023-11-08 05:42] LABS: Basophils Absolute Auto 0.1 X10*3/uL (0.0-0.2); Basophils Percent Auto 0.4 % (0-2); Eosinophils Absolute Auto 0.1 X10*3/uL (0.0-0.4); Eosinophils Percent Auto 0.4 % (0-4); Hematocrit 39.1 % (37.0-47.0); Hemoglobin 12.2 g/dl (12.0-16.0); Imm Gran Abs Auto 0.06 X10*3/uL (0.00-0.03); Imm Gran Pct Auto 0.4 % (0.0-0.4); Lymphocytes Absolute Auto 0.7 X10*3/uL (1.2-4.9); MANUAL DIFF FLAG SCAN; Mean Corpuscular HGB Conc 31.2 g/dl (31.0-35.0); Mean Corpuscular Volume 83.2 fL (80.0-98.0); Mean Platelet Volume 9.3 fL (9.4-12.3); Monocytes Absolute Auto 0.2 X10*3/uL (0.1-1.2); Monocytes Percent Auto 1.3 % (2-11); Neutrophils Absolute Auto 13.2 x10*3/uL (2.0-8.3); Neutrophils Percent Auto 92.5 % (45-73); Platelet Count 393 X10*3/uL (160-400); Red Cell Distribution Width 17.3 % (11.0-16.0); SCAN SMEAR FLAG 1; White Blood Count 14.3 X10*3/uL (4.8-10.8)
[2023-11-08 05:59] LABS: Anion Gap 16 (12-20); Blood Urea Nitrogen 15 mg/dL (9-16); Calcium 9.6 mg/dL (8.4-10.2); Carbon Dioxide 22 mmol/L (22-29); Chloride 106 mmol/L (96-108); Estimated Glomerular Filt Rate > 60; Glucose Random 269 mg/dL (60-115); Potassium 3.9 mmol/L (3.3-5.1); Sodium 140 mmol/L (135-145)
[2023-11-08 06:14] LABS: SLIDE REVIEW VERIFIED
--- NOTE | 2023-11-08 06:42 | PC.RT ---
Overnight Pt refused to have NIV continued. MD and RN aware. Pt oreder on NOC CPAP but also refused as she does not wear at home.
--- NOTE | 2023-11-08 07:27 | PC.NURSE ---
Patient has documented mild allergy to Azithromycin. She's received first dose of Azithromycin with no adverse reactions noted/reported. Dr. Agustin updated.
[2023-11-08 07:32] LABS: Glucose, Whole Blood 255 mg/dL (60-115)
[2023-11-08] MEDS: Albuterol/Iprat 2.5/0.5MG 3 ML AMPUL.NEB INHALE (07:43)
[2023-11-08] MEDS: methylPREDNISolone Sod Succ 40 MG/ML VIAL IVPUSH (08:14)
[2023-11-08] MEDS: Insulin Lispro 100 UNIT/ML 3 ML VIAL SUBCUT (08:14)
[2023-11-08] MEDS: 0.9 % Sodium Chloride Flush 3 ML SYRINGE IVFLUSH (08:14)
[2023-11-08] MEDS: Enoxaparin Sodium 40 MG/0.4 ML SYRINGE SUBCUT (08:14)
--- NOTE | 2023-11-08 08:17 | PC.NURSE ---
pt sleeping- notable sleep apnea- refuses cpap, wakes to verbal stimulus, lungs in/ex wheezing throughout, denies pain/discomfort, monitoring analyst intact, nsr on monitor, pt medicated per order, call ott within reach, will continue to monitor
--- NOTE | 2023-11-08 09:21 | PM.DS ---
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 Patient states her symptoms started 2 days prior to presentation. She has been having cough with minimal sputum production along with dyspnea which is worse with exertion. Has associated wheezing. No chest pain or palpitations. No fever, chills, chest discomfort, abdominal pain, changes in urinary or bowel habits. In the emergency department, patient with wheezing despite multiple DuoNeb treatments. Also received IV steroids hospital course: Patient was admitted for COPD/severe persistent asthma with acute decompensation. She was treated with steroids and azithromycin and DuoNebs. Symptoms significantly improved. She has no longer wheezing and feels close to her baseline. She will be discharged home on 5 more days of prednisone azithromycin. Of note, her listing of allergy to azithromycin was discontinued as she seems to have tolerated well with no signs of rash. For HENRY continue CPAP at bedtime. For obesity weight loss recommended. For diabetes was continue insulin. For hypertension will continue on losartan. Time Attestation Discharge Coordination Time (in mins): 35 Quality: Safe Use of Opioids Does Pt have an Active Cancer Diagnosis on the Problem List?: No Quality: Stroke Does the patient have a stroke diagnosis?: No Physical Exam Vital Signs: Vital Signs: Last Vital Signs Temp 97.6 F 11/08/23 03:23 Pulse 98 11/08/23 06:01 Resp 19 11/08/23 06:01 BP 143/73 H 11/08/23 06:01 Pulse Ox 93 11/08/23 06:01 O2 Del Method Room Air 11/08/23 06:01 BMI result Body Mass Index 33.7 General: AO X 3, no acute distress Resp: CTA bilateral, no accessory muscles used CVS: S1,S2,RRR GI: soft, non tender, non distended Neuro: motor grossly intact, alert Psych: appropriate affect, appropriate insight DS: Data Data Completed and Pending Completed studies during hospitalization [Text1]: Procedures Assistance with Respiratory Ventilation, Less than 24 Consecutive Hours, Continuous Positive Airway Pressure (06/01/23) Insertion of Endotracheal Airway into Trachea, Via Natural or Artificial Opening (11/03/20) Insertion of Infusion Device into Superior Vena Cava, Percutaneous Approach (11/03/20) Respiratory Ventilation, Less than 24 Consecutive Hours (11/03/20) Labs on day of discharge: Laboratory Results - last 24 hr 11/08/23 11/08/23 11/08/23 02:03 02:04 02:05 WBC 12.4 H RBC 4.74 Hgb 12.2 Hct 39.1 MCV 82.5 MCH 25.7 L MCHC 31.2 RDW 17.3 H Plt Count 352 MPV 8.6 L Immature Gran % (Auto) 0.4 Neut % (Auto) 64.9 Lymph % (Auto) 24.4 [place] % (Auto) 7.8 Eos % (Auto) 2.0 Baso % (Auto) 0.5 Lymph # (Auto) 3.0 [place] # (Auto) 1.0 Eos # (Auto) 0.3 Baso # (Auto) 0.1 Abs Immat Gran (auto) 0.05 H Absolute Neuts (auto) 8.0 Absolute Nucleated RBC 0.000 Nucleated RBC % (auto) 0.0 Smear Tech's Comments PT 11.0 L INR 0.9 VBG pH VBG pCO2 VBG pO2 VBG HCO3 VBG O2 Saturation VBG Base Excess Sodium 141 Potassium 4.3 Chloride 102 Carbon Dioxide 30 H Anion Gap 13 BUN 18 H Creatinine 0.87 Estim Creat Clear Calc 76.0 Estimated GFR > 60 POC Glucose Random Glucose 149 H Lactic Acid 0.8 Calcium 9.1 Total Bilirubin 0.1 Direct Bilirubin < 0.2 AST 8 ALT 9 Alkaline Phosphatase 91 Troponin I High Sens 10.3 B-Natriuretic Peptide 82 Total Protein 6.4 L Albumin 3.8 Ethyl Alcohol < 10 COVID-19 (LAMBERT) Negative COVID-19 Clin Com See Note Influenza Type A (KIM) Negative Influenza Type B (KIM) Negative Influenza A & B Note See Note 11/08/23 11/08/23 11/08/23 02:06 05:12 07:27 WBC 14.3 H RBC 4.70 Hgb 12.2 Hct 39.1 MCV 83.2 MCH 26.0 L MCHC 31.2 RDW 17.3 H Plt Count 393 MPV 9.3 L Immature Gran % (Auto) 0.4 Neut % (Auto) 92.5 H Lymph % (Auto) 5.0 L [place] % (Auto) 1.3 L Eos % (Auto) 0.4 Baso % (Auto) 0.4 Lymph # (Auto) 0.7 L [place] # (Auto) 0.2 Eos # (Auto) 0.1 Baso # (Auto) 0.1 Abs Immat Gran (auto) 0.06 H Absolute Neuts (auto) 13.2 H Absolute Nucleated RBC 0.000 Nucleated RBC % (auto) 0.0 Smear Tech's Comments VERIFIED PT INR VBG pH 7.39 VBG pCO2 55 VBG pO2 51 VBG HCO3 34 H VBG O2 Saturation 85.0 VBG Base Excess 7.8 Sodium 140 Potassium 3.9 Chloride 106 Carbon Dioxide 22 Anion Gap 16 BUN 15 Creatinine 0.87 Estim Creat Clear Calc 76.0 Estimated GFR > 60 POC Glucose 255 H Random Glucose 269 H Lactic Acid Calcium 9.6 Total Bilirubin Direct Bilirubin AST ALT Alkaline Phosphatase Troponin I High Sens B-Natriuretic Peptide Total Protein Albumin Ethyl Alcohol COVID-19 (LAMBERT) COVID-19 Clin Com Influenza Type A (KIM) Influenza Type B (KIM) Influenza A & B Note Discharge Plan Discharge Anticipated Discharge Date/Time: 11/08/23 09:15 Patient Disposition: Home, Self-Care Discharge Diagnosis: copd/asthma Referrals: Joe Hale, [employer]- [Primary Care Provider] - 1 Week Discharge Medications: New prednisone 20 mg tablet 40 mg PO DAILY Qty: 10 0RF azithromycin 500 mg tablet 500 mg PO DAILY 5 Days Qty: 5 0RF Continued (DME) lancets [FreeStyle Lancets] 28 gauge misc See Rx Instructions .ROUTE .MEDSUPPLY Qty: 100 1RF Rx Instructions: Use to check blood sugar daily or if symptomatic hypo/hypergylcemia (DME) 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 meter [FreeStyle Lite Meter] Kit See Rx Instructions .ROUTE .MEDSUPPLY Qty: 1 0RF Rx Instructions: Use to check blood sugar daily or if symptomatic for hypo/hyperglycemia (DME) FreeStyle Lite Strips Strip See Rx Instructions .ROUTE .MEDSUPPLY Qty: 100 1RF Rx Instructions: Use to check blood sugar daily or if symptomatic hypo/hypergylcemia theophylline 400 mg tablet extended release 24 hr 400 mg PO BID 90 Days Qty: 180 4RF lubiprostone [Amitiza] 24 mcg capsule 24 mcg PO BID 30 Days Qty: 60 6RF ipratropium bromide 0.02 % solution 2.5 ml inhalation Q6H PRN (Reason: for wheezing) 30 Days Qty: 187.5 6RF famotidine [Heartburn Relief (famotidine)] 10 mg tablet 10 mg PO BEDTIME Qty: 90 0RF Jardiance 10 mg tablet 10 mg PO QAM Qty: 30 0RF prednisone 10 mg tablet 10 mg PO DIRECTED Qty: 70 0RF Rx Instructions: Take 4 tabs daily for 7 days, then go down by 1 tab every 7 days furosemide 20 mg tablet 20 mg PO DAILY Qty: 90 3RF aspirin 81 mg tablet,delayed release (DR/EC) 81 mg PO DAILY 90 Days Qty: 90 1RF dexlansoprazole [Dexilant] 60 mg capsule,biphase delayed releas 60 mg PO DAILY Qty: 90 2RF glipizide 5 mg tablet 5 mg PO DAILY 90 Days Qty: 90 0RF gabapentin 800 mg tablet 800 mg PO QID Qty: 120 0RF tizanidine 4 mg tablet 4 mg PO Q8H PRN (Reason: muscle spasm) 30 Days Qty: 90 0RF acetaminophen 650 mg tablet extended release 650 mg PO Q12H PRN (Reason: pain) 30 Days Qty: 60 0RF ibuprofen 800 mg tablet 800 mg PO BID PRN (Reason: pain) Qty: 60 0RF Rx Instructions: please use sparingly due to diabetes sertraline 100 mg tablet 100 mg PO DAILY Qty: 90 0RF albuterol sulfate 90 mcg/actuation HFA aerosol inhaler 2 puff inhalation Q6H PRN (Reason: shortness of breath or wheezing) albuterol sulfate 90 mcg/actuation HFA aerosol inhaler 2 puff inhalation QID Qty: 8.5 3RF losartan 50 mg tablet 50 mg PO DAILY Qty: 90 1RF prednisone 2.5 mg tablet 7.5 mg PO DAILY 30 Days Qty: 90 6RF calcium carbonate-vitamin D3 500 mg-10 mcg (400 unit) tablet 1 tab PO BID 30 Days Qty: 60 6RF Discharge Orders: Discharge Order (Routine); Ordered 11/08/23 Ordered By: Pierre Agustin Diet: Advance to usual diet Activity on Discharge: As tolerated Stand Alone Forms: Patient Portal Discharge page Print Language: [place] Care Plan Goals: recovery Health Concerns: asthma/copd Plan of Treatment: zachery adan Assessment: see above Discharge Date/Time: 11/08/23 09:39
[2023-11-08] MEDS: Albuterol Sulfate 90 MCG 8 GM INHALER 2 PUFF INHALE (09:30)
--- NOTE | 2023-11-08 09:59 | MHC.CM.PN ---
Attempted to meet with patient in regards to discharge planning. Patient already discharged. Unable to complete CM assessment.
== END 2023-11-08 09:39 | disposition home or self-care (01) ==
LOC: HO.ED 03:31 → HO.EDOVER 03:56
PROVIDERS: Admitting Provider Student in an Organized Health Care Education/Training Program; Emergency Provider Emergency Medicine; PCP Nurse Practitioner Family; Visit Provider Internal Medicine
DX: J44.1 Chronic obstructive pulmonary disease with (acute) exacerbation (principal); R06.02 Shortness of breath; E11.9 Type 2 diabetes mellitus without complications; I10 Essential (primary) hypertension; G47.33 Obstructive sleep apnea (adult) (pediatric); K21.9 Gastro-esophageal reflux disease without esophagitis; R06.00 Dyspnea, unspecified; R05.9 Cough, unspecified
CPT/HCPCS: 36415; 71045; 80048; 80076; 80307; 82803; 82947; 83605; 83880; 84484; 85025; 85610; 87040; 87502; 87635; 93005; 94640; 96365; 96366; 96367; 96368; 96372; 96375; 99221; 99285; J0456; J0696; J1650; J2919; J3475

== ENCOUNTER → 2023-11-08 01:55 | Outpatient (BNV) | payer OTHER, SELFPAY | PROVIDERS: Admitting Provider Student in an Organized Health Care Education/Training Program; Emergency Provider Emergency Medicine; PCP Nurse Practitioner Family; Visit Provider Internal Medicine Cardiovascular Disease | DX: R06.02 Shortness of breath (principal) | CPT/HCPCS: 93010 ==

== ENCOUNTER → 2023-11-08 03:04 | Outpatient (BNV) | payer OTHER, SELFPAY | PROVIDERS: Emergency Provider Emergency Medicine; PCP Nurse Practitioner Family; Visit Provider Student in an Organized Health Care Education/Training Program | DX: J44.1 Chronic obstructive pulmonary disease with (acute) exacerbation (principal) | CPT/HCPCS: 99236 ==

== ENCOUNTER 2023-11-21 09:55 | Outpatient (AMB) | payer OTHER, SELFPAY ==
[2023-11-21 09:58] VITALS: BP 108/64; PULSE 114; O2SAT 93; BMI 36.4
--- NOTE | 2023-11-21 09:58 | A.OFFVIS_ITS ---
Vital Signs 11/21/23 09:58 Height 4 ft 11 in Weight 180 lb BMI 36.4 BP 108/64 Blood Pressure Location Lt brachial Position Sitting Pulse 114 H Pulse Source Doppler Pulse Oximetry (%) 93 Oxygen Delivery Method Room Air Intake Visit Reasons: asthma Allergies doxycycline Allergy (Severe, Verified 11/21/23 10:03) Swelling varenicline [From CHANTIX] Allergy (Severe, Verified 11/21/23 10:03) ANAPHYLAXIS azithromycin Allergy (Intermediate, Verified 11/21/23 10:03) Rash barium sulfate Allergy (Intermediate, Verified 11/21/23 10:03) angioedema cetirizine Allergy (Mild, Verified 11/21/23 10:03) Rash famotidine Allergy (Mild, Verified 11/21/23 10:03) Rash linaclotide [Linzess] Allergy (Mild, Verified 11/21/23 10:03) Rash HPI HPI asthma: Details: 53-year-old lady, active 40+ pack-year smoker, with underlying obesity, severe HENRY, followed for dyspnea on exertion and moderate COPD. She continues to use Stiolto, theophylline, duo nebs, and albuterol MDI with reasonable baseline control of her symptoms, however, she does get frequent exacerbations. She recently been hospitalized with another exacerbation and patient was on BiPAP with significant improvement in her sleep quality. She is interested in switching her CPAP to BiPAP therapy. Her recent exacerbation is improving, however she still has significant wheezing. [facility] Medical History (Updated 11/21/23 @ 10:19 by Kolby Kessler MD) COPD (chronic obstructive pulmonary disease) Diabetes mellitus COPD exacerbation Sleep apnea Crack cocaine use Hyperkalemia Acute exacerbation of COPD with asthma Metabolic acidosis Leukocytosis UTI (urinary tract infection) Acute respiratory failure with hypoxia Chest discomfort Chronic renal failure, stage 2 (mild) Acute and chronic respiratory failure with hypercapnia SOB (shortness of breath) Asthma Encounter for preoperative pulmonary examination Smoker Rotator cuff tendonitis GERD (gastroesophageal reflux disease) Chronic idiopathic constipation Bustos's esophagus Depression High triglycerides Gastroparesis Carpal tunnel syndrome of right wrist Nausea & vomiting Hernia Acute and chronic respiratory failure, unspecified whether with hypoxia or hypercapnia Respiratory failure HTN (hypertension) Obesity (BMI 30-39.9) Knee pain, bilateral Surgical History History of carpal tunnel release Hx of tubal ligation History of pubovaginal sling History of umbilical hernia repair Hx of section History of open reduction and internal fixation (ORIF) procedure Hx of cholecystectomy History of esophagogastroduodenoscopy (EGD) Family History Father Heart disease HENRY (obstructive sleep apnea) Family history of breast cancer Mother Asthma Emphysema, unspecified Bronchitis Smoker Alcoholism Bone marrow disease Maternal Grandmother Diabetes Social History Household Members: Children Household Members Other:: sister Housing: Apartment Are you a primary resident care director to a significant other at home: No Do you presently have visiting nurse or other home services: No Unable to assess alcohol history related to: Unknown Alcohol intake: former Comment: Sleeping Patient Tobacco Use Status: Current everyday Tobacco user Tobacco use type: Cigarette Cigarette Packs Per Day: 1 Cigarettes Per Day: 20.0 Years Smoked: 35 e-Cigarette/Vaping Use: Currently Using Second Hand Smoke Exposure: No Substance Use Type: Crack/Cocaine Advance Directives Date on File: 04/15/20 service: No Current occupational status: disabled 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 Review of Systems Const Denies daytime sleepiness, Denies excessive sweating, Denies fatigue, Denies fever(s), Denies lethargy, Denies malaise, Denies night sweats, Denies snoring and Denies weight loss Eyes Denies blurry vision and Denies itchy eyes ENT Denies nasal congestion, Denies post nasal drip, Denies sinus pain, Denies sinus pressure and Denies other ( Thrush) Card Denies chest pain, Denies pedal edema, Denies dyspnea, Denies orthopnea and Denies paroxysmal nocturnal dyspnea Resp Denies cough, Denies hemoptysis, Denies excessive phlegm production, Denies dyspnea, Denies snoring and Reports wheezing GI Denies abdominal pain and Denies heartburn Musc Denies myalgias, Denies arthralgias and Denies joint swelling Skin/Breast Denies rash Neuro Denies memory loss and Denies seizure-like activity Psych Denies abnormal sleep pattern, Denies anxiety and Denies memory loss Endo Denies excessive sweating, Denies fatigue and Denies heat intolerance José/Lymph Denies easy bruising Aller/Immun Denies itchy eyes, Denies seasonal rhinorrhea and Reports wheezing Physical Exam Vital Signs: Last Vital Signs Pulse 114 H 11/21/23 09:58 BP 108/64 11/21/23 09:58 Pulse Ox 93 11/21/23 09:58 Oxygen Delivery Method Room Air 11/21/23 09:58 BMI result Body Mass Index 36.4 Const General: no acute distress and alert Nutritional Appearance: obese Orientation/consciousness: Other orientation findings ( oriented) HEENT Head: Yes atraumatic Eyes General: appearance normal, both eyes and all related structures Sclerae: sclerae normal EOM: EOMs intact bilaterally Neck Neck: Yes supple Lymphatic: no lymphadenopathy noted Resp Effort & Inspection: normal respiratory effort and no use of accessory muscles Auscultation: wheezes (Mild bilateral expiratory) Cardio Rate: regular rate Rhythm: regular rhythm Heart sounds: no gallops, no murmurs and no rubs Skin General skin exam: other ( warm) Extrem General: No clubbing, No cyanosis and No edema Assessment & Plan Assessment & Plan (1) COPD (chronic obstructive pulmonary disease): Code(s): J44.9 - Chronic obstructive pulmonary disease, unspecified Category: Medical Plan: Improving from most recent exacerbation currently on Augmentin. Will add prednisone for 5 days. Continue baseline regimen of prednisone 7.5 mg daily, Stiolto, albuterol MDI/duo nebs. (2) HENRY (obstructive sleep apnea): Code(s): G47.33 - Obstructive sleep apnea (adult) (pediatric) Category: Medical Plan: Suboptimal control on CPAP. Patient had good response to BiPAP trial while hospitalized. Will request titration sleep study. Orders: Orders RT PSG in-lab sleep titration Today G47.33 - Obstructive sleep apnea (adult) (pediatric) Medications: Refilled prednisone 40 mg (2 x 20 mg) PO DAILY 10 tabs 0RF G47.33 - Obstructive sleep apnea (adult) (pediatric) Discontinued prednisone Take 4 tabs daily for 7 days, then go down by 1 tab every 7 days Discontinued Reason: Doctor's Order 10 mg PO DIRECTED 70 tabs 0RF Coding Level of Care Code Est Pt Level 4 (21169) Diagnoses Chronic obstructive pulmonary disease with acute lower respiratory infection J44.9 HENRY (obstructive sleep apnea) G47.33
== END 2023-11-21 10:13 | disposition home or self-care (01) ==
PROVIDERS: PCP Nurse Practitioner Family; Visit Provider Internal Medicine Pulmonary Disease
DX: J44.9 Chronic obstructive pulmonary disease, unspecified (principal); G47.33 Obstructive sleep apnea (adult) (pediatric)
CPT/HCPCS: 99214

== ENCOUNTER → 2023-11-21 09:55 | Outpatient (BNVA) | payer OTHER, SELFPAY | PROVIDERS: PCP Nurse Practitioner Family; Visit Provider Internal Medicine Pulmonary Disease | DX: J44.9 Chronic obstructive pulmonary disease, unspecified (principal); G47.33 Obstructive sleep apnea (adult) (pediatric) | CPT/HCPCS: 99212 ==

== ENCOUNTER 2023-12-16 06:48 | Inpatient (IN) | payer OTHER, SELFPAY ==
[2023-12-16] VITALS (16 sets, daily range): BP systolic 126–186; BP diastolic 68–111; PULSE 75–112; RESP 14–22; TEMP 36.8; O2SAT 82–99; BMI 37.1; BMI 37.3
--- NOTE | ~2023-12-16 | XR_ITS ---
EXAMINATION: XR CHEST CLINICAL INFORMATION: Shortness of breath and hypoxia COMPARISON: 11/08/2023 TECHNIQUE: Frontal view of the chest was obtained. FINDINGS: Heart size is normal. No evidence of CHF. The lungs are hypoinflated. Some mild reticular nodular densities are seen at the lung bases. No gross consolidation or large pleural effusions are seen. Healed rib fractures are again noted. Degenerative changes are seen in the right shoulder with some possible intra-articular osseous bodies. XR/XR chest 1V IMPRESSION: Hypoinflated lungs with mild reticular nodular densities at the lung bases.
--- NOTE | 2023-12-16 06:51 | ECG_ITS ---
Test Reason : sob Blood Pressure : / mmHG Vent. Rate : 081 BPM Atrial Rate : 081 BPM P-R Int : 128 ms QRS Dur : 078 ms QT Int : 352 ms P-R-T Axes : 079 125 066 degrees QTc Int : 408 ms Sinus rhythm with Premature atrial complexes Low voltage QRS Left posterior fascicular block Cannot rule out Anterior infarct , age undetermined Abnormal ECG When compared with ECG of 08-NOV-2023 02:24, No significant change was found Referred By: Amira Burrell Electronically Signed By:PAUL VARGAS MD
--- NOTE | 2023-12-16 06:52 | ED_ITS ---
HPI - SOB/Dyspnea General Chief Complaint: Dyspnea Stated Complaint: SOB PER EMS Time Seen by Provider: 12/16/23 06:50 Source: patient, EMS, RN notes reviewed and old records reviewed Mode of arrival: EMS Limitations: physical limitation (SOB, resp distress) History of Present Illness ED Provider: Ramon Burrell PA-C HPI Narrative: 53-year-old female with a history of COPD, active smoker, history of diabetes, obesity, GERD, Bustos's esophagus, osteoarthritis, constipation, carpal tunnel syndrome, HENRY, noncompliant with CPAP, history of cocaine use who presents to the ER via EMS for evaluation of anxiety and shortness of breath. Patient reported that she had shortness of breath all weekend. She was using her nebulizer with no relief; she used it 4-5 times before calling EMS and becoming more anxious. She reports she continues to smoke. Patient was found to be anxious on EMS arrival, very wheezy with poor air entry. SpO2 was in the high 80s per their report. IV was established and she was given 125 mg IV solumedrol as well as a duoneb en route. MD elicited complaint: shortness of breath Pertinent past history: COPD Onset (ago): day(s) Timing: progressively worsening Severity: severe Relieving factors: nothing Known history of: COPD Treatment prior to arrival: oxygen, bronchodilator and other (IV steroids) Related Data Previous Rx's ?Medication ?Instructions ?Recorded lancets 28 gauge (FreeStyle #100 ea 01/20/21 Lancets) 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 meter (FreeStyle #1 ea 03/01/22 Lite Meter kit) blood sugar diagnostic (FreeStyle #100 ea 09/16/22 Lite Strips) theophylline 400 mg 400 mg PO BID 90 days #180 tabs 12/24/22 tablet,extended release 24 hr lubiprostone 24 mcg capsule 24 mcg PO BID 30 days #60 caps 04/24/23 (Amitiza) albuterol sulfate 90 mcg/actuation 2 puff inhalation QID #8.5 grams 06/03/23 aerosol inhaler famotidine 10 mg tablet (Heartburn 10 mg PO BEDTIME #90 tabs 07/22/23 Relief (famotidine)) prednisone 2.5 mg tablet 7.5 mg (3 x 2.5 mg) PO DAILY 30 10/10/23 days #90 tabs ibuprofen 800 mg tablet 800 mg PO BID PRN pain #60 tabs 10/28/23 amoxicillin 875 mg-potassium 1 tab PO BID 10 days #20 tabs 11/11/23 clavulanate 125 mg tablet tizanidine 4 mg tablet 4 mg PO Q8H PRN muscle spasm 30 11/25/23 days #90 tabs Jardiance 10 mg tablet 10 mg PO QAM #30 tabs 12/09/23 (empagliflozin) acetaminophen 650 mg 650 mg PO Q12H PRN pain 30 days 12/09/23 tablet,extended release #60 tabs albuterol sulfate 90 mcg/actuation 2 puff inhalation Q6H PRN 12/09/23 aerosol inhaler shortness of breath or wheezing #8.5 grams aspirin 81 mg tablet,delayed 81 mg PO DAILY 90 days #90 tabs 12/09/23 release calcium carbonate 500 mg-vitamin 1 tab PO BID 30 days #60 tabs 12/09/23 D3 10 mcg (400 unit) tablet dexlansoprazole 60 mg 60 mg PO DAILY #90 caps 12/09/23 capsule,biphase delayed release (Dexilant) furosemide 20 mg tablet 20 mg PO DAILY #90 tabs 12/09/23 glipizide 5 mg tablet 5 mg PO DAILY 90 days #90 tabs 12/09/23 ipratropium bromide 0.02 % 2.5 ml inhalation Q6H PRN for 12/09/23 solution for inhalation wheezing 30 days #187.5 mL levofloxacin 750 mg tablet 750 mg PO DAILY #7 tabs 12/09/23 losartan 50 mg tablet 50 mg PO DAILY #90 tabs 12/09/23 prednisone 20 mg tablet 40 mg (2 x 20 mg) PO DAILY #10 tabs 12/09/23 sertraline 100 mg tablet 100 mg PO DAILY #90 tabs 12/09/23 gabapentin 800 mg tablet 800 mg PO QID #120 tabs 12/10/23 Allergies Allergy/AdvReac Type Severity Reaction Status Date / Time doxycycline Allergy Severe Swelling Verified 12/16/23 07:18 varenicline [From CHANTIX] Allergy Severe ANAPHYLAXIS Verified 12/16/23 07:18 azithromycin Allergy Intermediate Rash Verified 12/16/23 07:18 barium sulfate Allergy Intermediate angioedema Verified 12/16/23 07:18 cetirizine Allergy Mild Rash Verified 12/16/23 07:18 famotidine Allergy Mild Rash Verified 12/16/23 07:18 linaclotide [Linzess] Allergy Mild Rash Verified 12/16/23 07:18 Review of Systems 2 Review of Systems: Yes all other systems are reviewed and are negative [facility] Past Medical History Medical History COPD (chronic obstructive pulmonary disease) Diabetes mellitus COPD exacerbation Sleep apnea Crack cocaine use Hyperkalemia Acute exacerbation of COPD with asthma Metabolic acidosis Leukocytosis UTI (urinary tract infection) Acute respiratory failure with hypoxia Chest discomfort Chronic renal failure, stage 2 (mild) Acute and chronic respiratory failure with hypercapnia SOB (shortness of breath) Asthma Encounter for preoperative pulmonary examination Smoker Rotator cuff tendonitis GERD (gastroesophageal reflux disease) Chronic idiopathic constipation Bustos's esophagus Depression High triglycerides Gastroparesis Carpal tunnel syndrome of right wrist Nausea & vomiting Hernia Acute and chronic respiratory failure, unspecified whether with hypoxia or hypercapnia Respiratory failure HTN (hypertension) Obesity (BMI 30-39.9) Knee pain, bilateral Surgical History History of carpal tunnel release Hx of tubal ligation History of pubovaginal sling History of umbilical hernia repair Hx of section History of open reduction and internal fixation (ORIF) procedure Hx of cholecystectomy History of esophagogastroduodenoscopy (EGD) Family History Family History Father Heart disease HENRY (obstructive sleep apnea) Family history of breast cancer Mother Asthma Emphysema, unspecified Bronchitis Smoker Alcoholism Bone marrow disease Maternal Grandmother Diabetes Social History Social History Household Members: Children Household Members Other:: sister Housing: Apartment Are you a primary primary care provider to a significant other at home: No Do you presently have visiting nurse or other home services: No Unable to assess alcohol history related to: Unknown Alcohol intake: former Comment: Sleeping Patient Tobacco Use Status: Current everyday Tobacco user Tobacco use type: Cigarette Cigarette Packs Per Day: 1 Cigarettes Per Day: 20.0 Years Smoked: 35 e-Cigarette/Vaping Use: Currently Using Second Hand Smoke Exposure: No Substance Use Type: Crack/Cocaine Advance Directives: Yes Advance Directives on File: Yes Advance Directives Date on File: 04/15/20 service: No Current occupational status: disabled 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 Oriented X3. Respiratory distress with increased work of breathing, audible wheezing Head: normocephalic, atraumatic. Eyes: Pupils equal, round and reactive to light. ENT: Pharynx normal. No tonsillar swelling or exudate. Neck: Normal inspection. Neck supple. CVS: Normal heart rate and rhythm. Pulses normal. Respiratory: moderate respiratory distress with accessory muscle use and tachypnea Breath sounds with scattered rhonchi, expiratory wheezes, decreased at the bases, poor air entry Abdomen: Obese, Soft and nontender. +BS x4 Skin: Skin warm and dry. Normal skin color. Normal skin turgor. No rashes. Extremities: No lower extremity edema. No joint swelling. Neuro/psych: Oriented X 3. No motor deficit. No sensory deficit. CN II-XII intact. Normal speech and cognition. Course Reevaluation(s) Reevaluation #1: Patient had two VBGs showing chronic, compensated hypercarbia - no acute resp acidosis. she continues on BiPAP, breathing comfortably and sleeping. resp distress resolved. she states she was up all night long because she couldn't breathe, she didn't sleep at all she arouses to voice but quickly falls back asleep RT at the bedside to give another nebulizer treatment Time: 11:06 Reevaluation #2: re-evaluated. taken off of bipap. much more awake and alert. still wheezing but much improved. stable for admission to the floor. Time: 12:53 Medications Administered Generic Name Dose Route Start Last Admin Trade Name Freq PRN Reason Stop Dose Admin Albuterol/Ipratropium 3 ml 12/16/23 16:00 12/16/23 15:03 Albuterol/Iprat 2.5/0.5mg 3 Ml Ampul.Neb INHALE 3 ml RQ4H WHILE AWAKE [place] Administration Discontinued Medications Generic Name Dose Route Start Last Admin Trade Name Freq PRN Reason Stop Dose Admin Albuterol Sulfate 5 mg/ 0 mg 12/16/23 06:54 12/16/23 07:02 Albuterol/Ipratropium 3 ml INHALE 12/16/23 06:55 1 each ONCE ONE Administration Albuterol Sulfate 2.5 mg/ 0 mg 12/16/23 10:52 12/16/23 11:01 Albuterol/Ipratropium 3 ml INHALE 12/16/23 10:53 1 dose ONCE ONE Administration Magnesium Sulfate 2 gm in 50 mls @ 150 mls/hr 12/16/23 06:50 12/16/23 07:32 Magnesium Sulfate/H2o IV 12/16/23 07:09 Infused ONCE ONE Infusion Levofloxacin 750 mg in 150 mls @ 100 mls/hr 12/16/23 08:16 12/16/23 10:31 Levaquin IV 12/16/23 09:45 Infused ONCE ONE Infusion Methylprednisolone Sodium Succinate 60 mg 12/16/23 12:54 12/16/23 13:25 Methylprednisolone Sod Succ 125 Mg/2 Ml Vial IVPUSH 12/16/23 12:55 60 mg ONCE ONE Administration Medical Decision Making Medical Decision Making MDM Narrative: 53-year-old female with a history of COPD, active smoker, history of diabetes, obesity, GERD, Bustos's esophagus, osteoarthritis, constipation, carpal tunnel syndrome, HENRY, noncompliant with CPAP, history of cocaine use who presents to the ER via EMS for evaluation of anxiety and shortness of breath. Patient in respiratory distress on arrival with accessory muscle use, tachypnea, wheezing and rhonchi throughout. She was placed on rescue BiPAP and given DuoNeb. IV magnesium ordered as well. Initial VBG without acute respiratory acidosis, she is chronically a CO2 retainer. Chest x-ray without any evidence of focal pneumonia. IV Levaquin ordered for COPD exacerbation. Repeated VBG as patient continued to be lethargic on the BiPAP however it showed pH of 7.40. She states she was just tired because she was up all weekend being unable to breathe. After several hours on the BiPAP she was placed on 2 L nasal cannula with much improvement in her mentation. Will plan to admit for IV steroids, nebulizer treatments and treatment of her COPD exacerbation. Patient is in agreement. Differential Diagnosis Differential Diagnoses: The differential diagnosis associated with the presentation includes Acute COPD exacerbation, acute CHF exacerbation, pneumonia, bronchitis, hypercarbic respiratory failure due to noncompliance with CPAP, drug use Admission/Observation Consideration of admission/observation: Escalation of care including admission/observation considered Consult Healthcare Provider Management of the patient was discussed with: Hospitalist Lab Data MDM Lab Attestation statement: I reviewed the patient's lab results. Leukocytosis, normal renal function, elevated bicarb related to chronic respiratory disease 12/16/23 07:07 12/16/23 07:07 Labs: Lab Results 12/16/23 12/16/23 12/16/23 Range/Units 07:07 07:14 08:57 WBC 14.7 H (4.8-10.8) X10*3/uL RBC 4.79 (4.20-5.50) X10*6/uL Hgb 12.3 (12.0-16.0) g/dl Hct 39.4 (37.0-47.0) % MCV 82.3 (80.0-98.0) fL MCH 25.7 L (27.0-33.0) pg MCHC 31.2 (31.0-35.0) g/dl RDW 17.5 H (11.0-16.0) % Plt Count 320 (160-400) X10*3/uL MPV 9.1 L (9.4-12.3) fL Immature Gran % (Auto) 0.4 (0.0-0.4) % Neut % (Auto) 58.1 (45-73) % Lymph % (Auto) 32.1 (20-40) % [place] % (Auto) 7.4 (2-11) % Eos % (Auto) 1.6 (0-4) % Baso % (Auto) 0.4 (0-2) % Lymph # (Auto) 4.7 (1.2-4.9) X10*3/uL [place] # (Auto) 1.1 (0.1-1.2) X10*3/uL Eos # (Auto) 0.2 (0.0-0.4) X10*3/uL Baso # (Auto) 0.1 (0.0-0.2) X10*3/uL Abs Immat Gran (auto) 0.06 H (0.00-0.03) X10*3/uL Absolute Neuts (auto) 8.6 H (2.0-8.3) x10*3/uL Absolute Nucleated RBC 0.000 (0.0-0.012) X10*3/uL Nucleated RBC % (auto) 0.0 (0.0-0.2) /100WBC VBG pH 7.35 (7.32-7.43) VBG pCO2 60 mmHg VBG pO2 85 mmHg VBG HCO3 33 H (22-26) mmol/L VBG O2 Saturation 96.0 % VBG Base Excess 6.4 mmol/L Sodium 144 (135-145) mmol/L Potassium 3.8 (3.3-5.1) mmol/L Chloride 106 (96-108) mmol/L Carbon Dioxide 30 H (22-29) mmol/L Anion Gap 12 (12-20) BUN 22 H (9-16) mg/dL Creatinine 0.82 (0.5-1.4) mg/dL Estim Creat Clear Calc 72.5 Estimated GFR > 60 Random Glucose 112 (60-115) mg/dL Lactic Acid 1.1 (0.5-2.0) mmol/L Calcium 9.6 (8.4-10.2) mg/dL Magnesium 1.8 (1.6-2.6) mg/dL Total Bilirubin 0.1 (0.0-1.0) mg/dL Direct Bilirubin < 0.2 (0.0-0.5) mg/dL AST 13 (5-31) U/L ALT 16 (0-31) U/L Alkaline Phosphatase 87 (39-117) U/L Troponin I High Sens 13.0 12.4 (<3.5-17.0) ng/L B-Natriuretic Peptide 82 (<100) pg/mL Total Protein 6.7 (6.5-8.0) g/dL Albumin 3.9 (3.5-5.0) g/dL Procalcitonin 0.02 ng/mL Urine Color Urine Appearance Urine pH (5.0-9.0) Ur Specific [place] (1.005-1.025) Urine Protein (Neg-Trace) mg/dL Urine Glucose (UA) (Negative) mg/dL Urine Ketones (Negative) mg/dL Urine Blood (Negative) Urine Nitrite (Negative) Ur Leukocyte Esterase (Negative) Urine Opiates Screen (Not Detect) Ur Buprenorphine Scrn (Not Detect) ng/mL Ur Oxycodone Screen (Not Detect) ng/mL Urine Methadone Screen (Not Detect) ng/mL Urine Fentanyl Screen (Not Detect) Ur Barbiturates Screen (Not Detect) Ur Phencyclidine Scrn (Not Detect) Ur Amphetamines Screen (Not Detect) U Benzodiazepines Scrn (Not Detect) Urine Cocaine Screen (Not Detect) U Marijuana (THC) Screen (Not Detect) COVID-19 ([facility]) Negative (Negative) COVID-19 Clin Com See Note 12/16/23 12/16/23 12/16/23 Range/Units 08:58 14:13 14:18 WBC (4.8-10.8) X10*3/uL RBC (4.20-5.50) X10*6/uL Hgb (12.0-16.0) g/dl Hct (37.0-47.0) % MCV (80.0-98.0) fL MCH (27.0-33.0) pg MCHC (31.0-35.0) g/dl RDW (11.0-16.0) % Plt Count (160-400) X10*3/uL MPV (9.4-12.3) fL Immature Gran % (Auto) (0.0-0.4) % Neut % (Auto) (45-73) % Lymph % (Auto) (20-40) % [place] % (Auto) (2-11) % Eos % (Auto) (0-4) % Baso % (Auto) (0-2) % Lymph # (Auto) (1.2-4.9) X10*3/uL [place] # (Auto) (0.1-1.2) X10*3/uL Eos # (Auto) (0.0-0.4) X10*3/uL Baso # (Auto) (0.0-0.2) X10*3/uL Abs Immat Gran (auto) (0.00-0.03) X10*3/uL Absolute Neuts (auto) (2.0-8.3) x10*3/uL Absolute Nucleated RBC (0.0-0.012) X10*3/uL Nucleated RBC % (auto) (0.0-0.2) /100WBC VBG pH 7.41 7.45 H (7.32-7.43) VBG pCO2 51 42 mmHg VBG pO2 54 112 mmHg VBG HCO3 33 H 29 H (22-26) mmol/L VBG O2 Saturation 84.0 99.0 % VBG Base Excess 7.6 5.4 mmol/L Sodium (135-145) mmol/L Potassium (3.3-5.1) mmol/L Chloride (96-108) mmol/L Carbon Dioxide (22-29) mmol/L Anion Gap (12-20) BUN (9-16) mg/dL Creatinine (0.5-1.4) mg/dL Estim Creat Clear Calc Estimated GFR Random Glucose (60-115) mg/dL Lactic Acid (0.5-2.0) mmol/L Calcium (8.4-10.2) mg/dL Magnesium (1.6-2.6) mg/dL Total Bilirubin (0.0-1.0) mg/dL Direct Bilirubin (0.0-0.5) mg/dL AST (5-31) U/L ALT (0-31) U/L Alkaline Phosphatase (39-117) U/L Troponin I High Sens (<3.5-17.0) ng/L B-Natriuretic Peptide (<100) pg/mL Total Protein (6.5-8.0) g/dL Albumin (3.5-5.0) g/dL Procalcitonin ng/mL Urine Color Yellow Urine Appearance Cloudy Urine pH 6.5 (5.0-9.0) Ur Specific [place] 1.025 (1.005-1.025) Urine Protein Negative (Neg-Trace) mg/dL Urine Glucose (UA) Negative (Negative) mg/dL Urine Ketones Negative (Negative) mg/dL Urine Blood Negative (Negative) Urine Nitrite Negative (Negative) Ur Leukocyte Esterase Negative (Negative) Urine Opiates Screen POSITIVE H (Not Detect) Ur Buprenorphine Scrn Not Detected (Not Detect) ng/mL Ur Oxycodone Screen Not Detected (Not Detect) ng/mL Urine Methadone Screen Not Detected (Not Detect) ng/mL Urine Fentanyl Screen POSITIVE H (Not Detect) Ur Barbiturates Screen Not Detected (Not Detect) Ur Phencyclidine Scrn Not Detected (Not Detect) Ur Amphetamines Screen Not Detected (Not Detect) U Benzodiazepines Scrn Not Detected (Not Detect) Urine Cocaine Screen POSITIVE H (Not Detect) U Marijuana (THC) Screen Not Detected (Not Detect) COVID-19 ([facility]) (Negative) COVID-19 Clin Com Independent Interpretation I performed an independent interpretation of an: EKG and Plain X-Ray Interpretation: EKG with normal sinus rhythm, ventricular rate 81 beats per minute, low-voltage QRS, no ST segment elevations or depressions, artifact present Chest x-ray with increased reticular markings, question opacity in the right lower lobe, haziness of the bilateral costophrenic angles Radiology Impression Discussion of test interpretation with radiology: I have reviewed the radiologist's reading. Radiologist Impression: EXAMINATION: XR CHEST CLINICAL INFORMATION: Shortness of breath and hypoxia COMPARISON: 11/08/2023 TECHNIQUE: Frontal view of the chest was obtained. FINDINGS: Heart size is normal. No evidence of CHF. The lungs are hypoinflated. Some mild reticular nodular densities are seen at the lung bases. No gross consolidation or large pleural effusions are seen. Healed rib fractures are again noted. Degenerative changes are seen in the right shoulder with some possible intra-articular osseous bodies. XR/XR chest 1V IMPRESSION: Hypoinflated lungs with mild reticular nodular densities at the lung bases. Independent Historian Clinical information obtained from an independent historian. History obtained from or confirmed by: EMS External Record Review External record reviewed: Inpatient record, Outpatient record, Prior outpatient labs and Prior outpatient radiology Tests considered The following testing was considered but not selected: CT scan of the chest and head considered Prescription Management I considered prescription management with: Antibiotic Chronic Conditions Patient?s care impacted by: Hypertension and Other (COPD, HENRY) Critical Care Time Critical Care Time Critical Care Time: Yes Total Critical Care Time: 48 Attestation: I have personally provided critical care time exclusive of time spent on separately billable procedures. Time includes review of lab data, radiology results, multiple bedside re-evaluations of cardiopulmonary status and monitoring for potential decompensation. Intervention performed as documented. Discharge Plan Discharge Clinical Impression: Acute exacerbation of chronic obstructive airways disease Patient Disposition: Admitted As Inpatient
[2023-12-16] MEDS: Albuterol Sulfate 5 MG, Albuterol/Iprat 2.5/0.5MG 3 ML 3 ML INHALE (07:02)
--- NOTE | 2023-12-16 07:05 | PC.RT ---
Pt came in via EMS on [place]. EMS states they gave duoneb x1 and albuterol updraft x1. PT is not O2 dependent at home and non compliant with bedtime CPAP. Pt has crackles in bases and inspiratory/expiratory wheezing bilateral. Pt given treatments per protocol and placed on bipap. Pt asleep and snoring. Comfortable and celio bipap settings at this time.
[2023-12-16] MEDS: Magnesium Sulfate/H2O 2 GM/50 ML PIGGYBACK IV (07:12)
[2023-12-16 07:13] LABS: MANUAL DIFF FLAG NO
[2023-12-16 07:16] LABS: Basophils Absolute Auto 0.1 X10*3/uL (0.0-0.2); Basophils Percent Auto 0.4 % (0-2); Eosinophils Absolute Auto 0.2 X10*3/uL (0.0-0.4); Eosinophils Percent Auto 1.6 % (0-4); Hematocrit 39.4 % (37.0-47.0); Hemoglobin 12.3 g/dl (12.0-16.0); Imm Gran Abs Auto 0.06 X10*3/uL (0.00-0.03); Imm Gran Pct Auto 0.4 % (0.0-0.4); Lymphocytes Absolute Auto 4.7 X10*3/uL (1.2-4.9); Lymphocytes Percent Auto 32.1 % (20-40); Mean Corpuscular HGB Conc 31.2 g/dl (31.0-35.0); Mean Corpuscular Hemoglobin 25.7 pg (27.0-33.0); Mean Corpuscular Volume 82.3 fL (80.0-98.0); Mean Platelet Volume 9.1 fL (9.4-12.3); Monocytes Absolute Auto 1.1 X10*3/uL (0.1-1.2); Monocytes Percent Auto 7.4 % (2-11); Neutrophils Absolute Auto 8.6 x10*3/uL (2.0-8.3); Neutrophils Percent Auto 58.1 % (45-73); Platelet Count 320 X10*3/uL (160-400); Red Blood Count 4.79 X10*6/uL (4.20-5.50); Red Cell Distribution Width 17.5 % (11.0-16.0); White Blood Count 14.7 X10*3/uL (4.8-10.8)
[2023-12-16 07:21] LABS: VBG Base Excess 6.4 mmol/L; VBG HCO3 33 mmol/L (22-26); VBG pCO2 60 mmHg; VBG pH 7.35 (7.32-7.43); VBG pO2 85 mmHg
[2023-12-16 07:22] LABS: Venous Blood Gas Refer to POC result
--- NOTE | 2023-12-16 07:38 | PC.NURSE ---
Xray at bedside
[2023-12-16 07:44] LABS: B Type Natriuretic Peptide 82 pg/mL (<100)
[2023-12-16 07:52] LABS: Alanine Aminotransferase 16 U/L (0-31); Albumin Level 3.9 g/dL (3.5-5.0); Alkaline Phosphatase 87 U/L (39-117); Anion Gap 12 (12-20); Aspartate Amino Transferase 13 U/L (5-31); Bilirubin Direct < 0.2 mg/dL (0.0-0.5); Bilirubin Total 0.1 mg/dL (0.0-1.0); Blood Urea Nitrogen 22 mg/dL (9-16); Calcium 9.6 mg/dL (8.4-10.2); Carbon Dioxide 30 mmol/L (22-29); Chloride 106 mmol/L (96-108); Creatinine Clr Calc Pharmacy 72.5; Estimated Glomerular Filt Rate > 60; Glucose Random 112 mg/dL (60-115); Magnesium 1.8 mg/dL (1.6-2.6); Potassium 3.8 mmol/L (3.3-5.1); Sodium 144 mmol/L (135-145); Total Protein 6.7 g/dL (6.5-8.0)
[2023-12-16 08:03] LABS: Lactic Acid 1.1 mmol/L (0.5-2.0)
--- NOTE | 2023-12-16 08:16 | PC.NURSE ---
Pt's breathing appears more comfortable, RR 14 sating 95%. BIPAP 14/8, 40%FiO2.
[2023-12-16 08:44] LABS: Procalcitonin 0.02 ng/mL
[2023-12-16] MEDS: levoFLOXacin/D5W 750 MG/150 ML PIGGYBACK 100 MG IV (09:01)
--- NOTE | 2023-12-16 09:04 | PC.NURSE ---
Repeat labs drawn/sent. IV abx initiated, VS updated.
[2023-12-16 09:05] LABS: VBG Base Excess 7.6 mmol/L; VBG HCO3 33 mmol/L (22-26); VBG pCO2 51 mmHg; VBG pH 7.41 (7.32-7.43); VBG pO2 54 mmHg
[2023-12-16 09:05] LABS: Venous Blood Gas Refer to POC result
[2023-12-16 09:20] LABS: IDNOW Serial# 152EDE1D
[2023-12-16 09:21] LABS: COVID-19 Test Negative (Negative)
[2023-12-16 09:23] LABS: Troponin-I High Sensitivity 12.4 ng/L (<3.5-17.0)
[2023-12-16] MEDS: Albuterol Sulfate 2.5 MG, Albuterol/Iprat 2.5/0.5MG 3 ML 3 ML INHALE (11:01)
--- NOTE | 2023-12-16 11:31 | PC.NURSE ---
Pt continues resting comfortably on stretcher.
--- NOTE | 2023-12-16 12:15 | PC.NURSE ---
Pt boosted in bed, given warm blanket.
--- NOTE | 2023-12-16 12:50 | PC.NURSE ---
Pt taken off BIPAP to trial without, placed on 2L nasal cannula.
--- NOTE | 2023-12-16 12:52 | PC.RT ---
Pt taken off bipap by RN per MD request. Pt placed on 2L NC. RN made RT aware of change.
--- NOTE | 2023-12-16 13:24 | PC.NURSE ---
Per respiratory,pt requires CPAP while asleep. Machine placed on pt as she is mostly sleeping, loudly snoring but maintaining saturations at 93% on 2L
[2023-12-16] MEDS: methylPREDNISolone Sod Succ 125 MG/2 ML VIAL 60 MG IVPUSH (13:25)
--- NOTE | 2023-12-16 13:41 | P.HPHOSP_ITS ---
History of Present Illness Date of Service: 12/16/23 Attending physician on admission: Pierre Agustin Chief Complaint: sob 53 year old female with history of COPD, active smoker, history of diabetes, obesity, GERD, Bustos's esophagus, osteoarthritis, constipation, carpal tunnel syndrome, HENRY, noncompliant with CPAP, history of cocaine use presented to the ED earlier today for evaluation of shortness of breath and productive cough with yellow sputum that started 2 days ago. Has been very anxious and unable to sleep r/t her symptoms. She denies fevers, chills, st, congestion, abd pain n/v/d, lightheadedness, chest pain. She has noted increase in albuterol usage. Recently admitted overnight 11/07 for copd exacerbation. Not on home O2. Continues smoking 1PPD. On arrival, vss. However, given ongoing tachypnea/increased wob was placed on bipap and has been weaned to 2L supplemental O2 maintaining oximetry 93%. She has been placed back on bipap by RT when pt sleeping. She has a leukocytosis 14.7. Renal fx and lytes normal, except co2 30. Initial trop 13.0, repeat 12.4. BNP 82. negative for COVID19. PCT 0.02. CXR shows reticulo-nodular opactities, suspect chronic r/t scarring from COPD. Recevied 125mg iv methprednisolone by ems and has received multiple duonebs and iv levaquin and mag. She will be admitted for further management of acute copd exacerbation. Review of Systems 2 Review of Systems: Yes all other systems are reviewed and are negative [facility] Medical History COPD (chronic obstructive pulmonary disease) Diabetes mellitus COPD exacerbation Sleep apnea Crack cocaine use Hyperkalemia Acute exacerbation of COPD with asthma Metabolic acidosis Leukocytosis UTI (urinary tract infection) Acute respiratory failure with hypoxia Chest discomfort Chronic renal failure, stage 2 (mild) Acute and chronic respiratory failure with hypercapnia SOB (shortness of breath) Asthma Encounter for preoperative pulmonary examination Smoker Rotator cuff tendonitis GERD (gastroesophageal reflux disease) Chronic idiopathic constipation Bustos's esophagus Depression High triglycerides Gastroparesis Carpal tunnel syndrome of right wrist Nausea & vomiting Hernia Acute and chronic respiratory failure, unspecified whether with hypoxia or hypercapnia Respiratory failure HTN (hypertension) Obesity (BMI 30-39.9) Knee pain, bilateral Family History Father Heart disease HENRY (obstructive sleep apnea) Family history of breast cancer Mother Asthma Emphysema, unspecified Bronchitis Smoker Alcoholism Bone marrow disease Maternal Grandmother Diabetes Surgical History History of carpal tunnel release Hx of tubal ligation History of pubovaginal sling History of umbilical hernia repair Hx of section History of open reduction and internal fixation (ORIF) procedure Hx of cholecystectomy History of esophagogastroduodenoscopy (EGD) Social History Household Members: Children Household Members Other:: sister Housing: Apartment Are you a primary human services care specialist to a significant other at home: No Do you presently have visiting nurse or other home services: No Unable to assess alcohol history related to: Unknown Alcohol intake: former Comment: Sleeping Patient Tobacco Use Status: Current everyday Tobacco user Tobacco use type: Cigarette Cigarette Packs Per Day: 1 Cigarettes Per Day: 20.0 Years Smoked: 35 e-Cigarette/Vaping Use: Currently Using Second Hand Smoke Exposure: No Substance Use Type: Crack/Cocaine Advance Directives: Yes Advance Directives on File: Yes Advance Directives Date on File: 04/15/20 service: No Current occupational status: disabled 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 Meds Allergies Allergy/AdvReac Type Severity Reaction Status Date / Time doxycycline Allergy Severe Swelling Verified 12/16/23 07:18 [email or web address] [From CHANTIX] Allergy Severe ANAPHYLAXIS Verified 12/16/23 07:18 azithromycin Allergy Intermediate Rash Verified 12/16/23 07:18 barium sulfate Allergy Intermediate angioedema Verified 12/16/23 07:18 cetirizine Allergy Mild Rash Verified 12/16/23 07:18 famotidine Allergy Mild Rash Verified 12/16/23 07:18 linaclotide [Linzess] Allergy Mild Rash Verified 12/16/23 07:18 Physical Exam 2 Vital Signs and Narrative: Vital Signs: Last Vital Signs Temp 98.2 F 12/16/23 07:00 Pulse 88 12/16/23 13:20 Resp 20 12/16/23 13:20 BP 139/99 H 12/16/23 13:20 Pulse Ox 93 12/16/23 13:20 O2 Del Method Nasal Cannula 12/16/23 13:20 O2 Flow Rate 2 12/16/23 13:20 FiO2 40 12/16/23 12:50 Oxygen Flow Rate 4 12/16/23 07:00 BMI result Body Mass Index 37.1 Constitutional - Awake and Alert, No apparent distress Eyes - PERRLA, EOMI Cardiovascular - S1S2, RRR, No edema Respiratory - Normal lung expansion, Normal respiratory effort, No respiratory distress, diffuse expiratory wheezing bilaterally Gastrointestinal - NT / ND; +BS; No rebound or guarding Extremities - no calf tenderness bilaterally, no swelling Skin - Warm/Dry Neurological - Alert & oriented x3, CN II-XII in tact, 5/5 strength BUE and BLE Psychological - Appropriate affect Results Labs 12/16/23 07:07 12/16/23 07:07 Labs: Laboratory Results - last 24 hr 12/16/23 12/16/23 12/16/23 07:07 07:14 08:57 MCV 82.3 MCH 25.7 L MCHC 31.2 RDW 17.5 H Plt Count 320 MPV 9.1 L Immature Gran % (Auto) 0.4 Neut % (Auto) 58.1 Lymph % (Auto) 32.1 [place] % (Auto) 7.4 Eos % (Auto) 1.6 Baso % (Auto) 0.4 Lymph # (Auto) 4.7 [place] # (Auto) 1.1 Eos # (Auto) 0.2 Baso # (Auto) 0.1 Abs Immat Gran (auto) 0.06 H Absolute Neuts (auto) 8.6 H Absolute Nucleated RBC 0.000 Nucleated RBC % (auto) 0.0 VBG pH 7.35 VBG pCO2 60 VBG pO2 85 VBG HCO3 33 H VBG O2 Saturation 96.0 VBG Base Excess 6.4 Anion Gap 12 Estim Creat Clear Calc 72.5 Estimated GFR > 60 Random Glucose 112 Lactic Acid 1.1 Calcium 9.6 Magnesium 1.8 Total Bilirubin 0.1 Direct Bilirubin < 0.2 AST 13 ALT 16 Alkaline Phosphatase 87 Troponin I High Sens 13.0 12.4 B-Natriuretic Peptide 82 Total Protein 6.7 Albumin 3.9 Procalcitonin 0.02 COVID-19 (LAMBERT) Negative COVID-19 Clin Com See Note 12/16/23 08:58 MCV MCH MCHC RDW Plt Count MPV Immature Gran % (Auto) Neut % (Auto) Lymph % (Auto) [place] % (Auto) Eos % (Auto) Baso % (Auto) Lymph # (Auto) [place] # (Auto) Eos # (Auto) Baso # (Auto) Abs Immat Gran (auto) Absolute Neuts (auto) Absolute Nucleated RBC Nucleated RBC % (auto) VBG pH 7.41 VBG pCO2 51 VBG pO2 54 VBG HCO3 33 H VBG O2 Saturation 84.0 VBG Base Excess 7.6 Anion Gap Estim Creat Clear Calc Estimated GFR Random Glucose Lactic Acid Calcium Magnesium Total Bilirubin Direct Bilirubin AST ALT Alkaline Phosphatase Troponin I High Sens B-Natriuretic Peptide Total Protein Albumin Procalcitonin COVID-19 (LAMBERT) COVID-19 Clin Com Imaging Radiologist's Impressions: Impressions Chest X-Ray 12/16/23 07:49 IMPRESSION: Hypoinflated lungs with mild reticular nodular densities at the lung bases. Assessment and Plan (1) Acute exacerbation of chronic obstructive airways disease: Status: Acute Plan 53 year old female with history of COPD, active smoker, history of diabetes, obesity, GERD, Bustos's esophagus, osteoarthritis, constipation, carpal tunnel syndrome, HENRY, noncompliant with CPAP, history of cocaine use admitted for further management of COPD exacerbation #Acute copd exacerbation with background asthma/COPD overlap with acute hypoxemic respiratory failure -weaned from bipap in ed, contineu 2L supplemental O2 to maintain oximetry 90- 92%, wean as tolerated per protocol -vbg reassuring. CO2 baseline around 45-50 -cxr shows reticuo-nodular densities in bilateral based. No focal pneumonia -allergic to azithro and doxy. IV levaquin 750mg daily -iv methylprednisolone 40mg bid -duonebs q4h and prn -guaifenesin ac -continue maintenance inhalers, theophylline. Theophylline level pending -check RPP # [id number] type 2 diabetes -POC glucose, diabetic diet -Humalog on sliding scale -hold p.o. antihyperglycemics # GERD/Bustos's esophagus -continue famotidine # hypertension -continue losartan, Lasix #constipation -continue lubiprostone dvt prophylaxis- lovenox full code pt requires inpt stay at least 2 midnights due to copd exacerbation with acute hypoxemic respiratory failure initially requiring BiPAP and has been weaned to supplemental O2, will require ongoing treatment with IV steroids, scheduled nebulizers, and titration of supplemental O2 with close monitoring of respiratory status to monitor for and prevent decompensation Quality Stroke Does the patient have a stroke diagnosis?: No VTE Prior VTE?: No VTE Risk Level:: Medical - moderate - high VTE Device Contraindication: Treatment Not Indicated VTE Drug Contraindication: N/A - Med Ordered
--- NOTE | 2023-12-16 13:47 | PC.NURSE ---
Admitting PA at bedside to evaluate patient.
--- NOTE | 2023-12-16 14:01 | PC.NURSE ---
Pt made aware of need for urine sample - needs to pee or needs a straight cath. Pt placed on bedpan at this time.
[2023-12-16 14:21] LABS: VBG Base Excess 5.4 mmol/L; VBG HCO3 29 mmol/L (22-26); VBG pCO2 42 mmHg; VBG pH 7.45 (7.32-7.43); VBG pO2 112 mmHg
--- NOTE | 2023-12-16 14:21 | PC.NURSE ---
Pt straight catheterized for urine sample - pt remained asleep the whole time. Urine sent to lab, IVANA Collier made aware.
[2023-12-16 14:22] LABS: Venous Blood Gas Refer to POC result
[2023-12-16 14:26] LABS: Appearance Urine Cloudy; Color Urine Yellow; Glucose Urine UA Negative (Negative); Leukocyte Esterase Urine Negative (Negative); Nitrite Urine Negative (Negative); PH 6.5 (5.0-9.0); Specific Gravity - Urine 1.025 (1.005-1.025); Urine Blood Negative (Negative); Urine Ketones Negative (Negative); Urine Protein Negative (Neg-Trace)
[2023-12-16 14:36] LABS: Amphetamine Screen Urine Not Detected (Not Detect); Barbiturates, Urine Not Detected (Not Detect); Benzodiazepines Screen Urine Not Detected (Not Detect); Buprenorphine Scr Not Detected (Not Detect); Cannabinoid Screen Urine Not Detected (Not Detect); Cocaine Screen Urine POSITIVE (Not Detect); Fentanyl, urine POSITIVE (Not Detect); Methadone Screen, Urine Not Detected (Not Detect); Opiate Screen Urine POSITIVE (Not Detect); Oxycodone Screen Urine Not Detected (Not Detect); Phencyclidine Screen Urine Not Detected (Not Detect)
[2023-12-16] MEDS: Albuterol/Iprat 2.5/0.5MG 3 ML AMPUL.NEB INHALE ×2 (15:03→19:20)
[2023-12-16] MEDS: Enoxaparin Sodium 40 MG/0.4 ML SYRINGE SUBCUT (15:34)
[2023-12-16] MEDS: guaiFEN/Codeine SF 200/20/10ML 10 ML LIQUID 5 ML PO ×3 (15:34→23:29)
[2023-12-16] MEDS: 0.9 % Sodium Chloride Flush 3 ML SYRINGE IVFLUSH ×2 (15:35→23:34)
[2023-12-16 18:24] LABS: Glucose, Whole Blood 207 mg/dL (60-115)
[2023-12-16] MEDS: Insulin Lispro 100 UNIT/ML 3 ML VIAL SUBCUT (19:08)
--- NOTE | 2023-12-16 21:52 | PHA.MEDREC ---
Pharmacy Consult ? Medication Reconciliation Pharmacy has completed the medication reconciliation. . Spoke to patients daughter Jaja to confirm med list. she was able to confirm most of the patients lists of meds. Jaja says patient was instructed to stop Jardiance 10 mg daily, however she dosn't know if or when her mother stopped taking it. Claims has a last picking supervisor date of 12-09-23 so i left it on med list. Jaja also stated her mother completed prednisone 40 mg daily for 5 days. Daughter says she doen't think her mother is still on Lubiprostone 24 mg bid, claims says last date was 04-24-23 so i left it out of med list.
[2023-12-16] MEDS: methylPREDNISolone Sod Succ 40 MG/ML VIAL IVPUSH (23:28)
[2023-12-17] VITALS (14 sets, daily range): BP systolic 112–170; BP diastolic 60–100; PULSE 81–108; RESP 16–19; TEMP 36.2–36.8; O2SAT 93–99
[2023-12-17] MEDS: Albuterol/Iprat 2.5/0.5MG 3 ML AMPUL.NEB INHALE ×5 (00:32→21:12)
[2023-12-17 00:49] LABS: Glucose, Whole Blood 149 mg/dL (60-115)
[2023-12-17] MEDS: guaiFEN/Codeine SF 200/20/10ML 10 ML LIQUID 5 ML PO ×5 (04:47→21:46)
[2023-12-17] MEDS: Acetaminophen 325 MG TABLET 650 MG PO (05:01)
[2023-12-17 06:35] LABS: MANUAL DIFF FLAG NO
[2023-12-17 06:42] LABS: Basophils Percent Auto 0.2 % (0-2); Eosinophils Percent Auto 0.1 % (0-4); Hematocrit 38.1 % (37.0-47.0); Imm Gran Abs Auto 0.07 X10*3/uL (0.00-0.03); Imm Gran Pct Auto 0.5 % (0.0-0.4); Lymphocytes Absolute Auto 1.3 X10*3/uL (1.2-4.9); Lymphocytes Percent Auto 8.5 % (20-40); Mean Corpuscular HGB Conc 31.5 g/dl (31.0-35.0); Mean Corpuscular Hemoglobin 25.8 pg (27.0-33.0); Mean Corpuscular Volume 81.9 fL (80.0-98.0); Mean Platelet Volume 9.3 fL (9.4-12.3); Monocytes Absolute Auto 0.5 X10*3/uL (0.1-1.2); Monocytes Percent Auto 3.1 % (2-11); Neutrophils Absolute Auto 12.9 x10*3/uL (2.0-8.3); Neutrophils Percent Auto 87.6 % (45-73); Platelet Count 351 X10*3/uL (160-400); Red Blood Count 4.65 X10*6/uL (4.20-5.50); Red Cell Distribution Width 17.3 % (11.0-16.0); White Blood Count 14.7 X10*3/uL (4.8-10.8)
[2023-12-17 06:56] LABS: Anion Gap 12 (12-20); Blood Urea Nitrogen 22 mg/dL (9-16); Calcium 9.1 mg/dL (8.4-10.2); Carbon Dioxide 29 mmol/L (22-29); Chloride 102 mmol/L (96-108); Creatinine Clr Calc Pharmacy 71.8; Estimated Glomerular Filt Rate > 60; Glucose Random 280 mg/dL (60-115); Potassium 4.4 mmol/L (3.3-5.1); Sodium 139 mmol/L (135-145)
[2023-12-17 08:02] LABS: Glucose, Whole Blood 244 mg/dL (60-115)
--- NOTE | 2023-12-17 08:24 | MHC.CM.PN ---
CM met with Patient at bedside. Patient lives in an apartment with her Daughter/HCP/Jaja and she has a home CPAP from [facility]. Patient has both a cane and a walker to assist with mobility. Home/self care is the goal and CM has initiated and will follow for dc planning. Patient may benefit from a Recovery Team Consult (Positive for Cocaine/Fentanyl and Opiates). CM has initiated and will follow for dc planning. PCP is Dr. Joe Hale.
[2023-12-17] MEDS: Insulin Lispro 100 UNIT/ML 3 ML VIAL SUBCUT ×3 (08:35→21:49)
[2023-12-17] MEDS: 0.9 % Sodium Chloride Flush 3 ML SYRINGE IVFLUSH ×3 (08:36→21:48)
[2023-12-17] MEDS: methylPREDNISolone Sod Succ 40 MG/ML VIAL IVPUSH ×2 (08:37→21:46)
[2023-12-17] MEDS: Nicotine 21 MG PATCH.TD24 TRANSDERMA (08:37)
[2023-12-17] MEDS: levoFLOXacin/D5W 750 MG/150 ML PIGGYBACK 100 MG IV (08:48)
--- NOTE | 2023-12-17 09:04 | HO.PM.IMPN ---
Subjective Subjective Date of Service: 12/17/23 Interval History: still sob and wheezing Physical Exam Vital Signs: Vital Signs: Last Vital Signs Temp 97.4 F 12/17/23 08:00 Pulse 95 12/17/23 08:00 Resp 19 12/17/23 08:00 BP 157/86 H 12/17/23 08:00 Pulse Ox 95 12/17/23 08:00 O2 Del Method Oxymask 12/17/23 08:00 O2 Flow Rate 4 12/17/23 08:00 FiO2 40 12/16/23 15:19 Oxygen Flow Rate 4 12/16/23 07:00 BMI result Body Mass Index 37.3 General: AO X 3, no acute distress Resp: wheezing, poor air movement bilateral, mild accessory muscles used CVS: S1,S2,RRR GI: soft, non tender, non distended Neuro: motor grossly intact, alert Psych: appropriate affect, appropriate insight Objective Data Active Medications Acetaminophen (Acetaminophen 325 Mg Tablet) 650 mg PO Q6H PRN PRN Reason: Pain, Mild (Pain Scale 1-3), fever or headache Last Admin: 12/17/23 05:01 Dose: 650 mg Documented By: BURTON Albuterol/Ipratropium (Albuterol/Iprat 2.5/0.5mg 3 Ml Ampul.Neb) 3 ml INHALE RQ4H WHILE AWAKE [facility] Last Admin: 12/17/23 07:34 Dose: 3 ml Documented By: VAZQUEZ Albuterol/Ipratropium (Albuterol/Iprat 2.5/0.5mg 3 Ml Ampul.Neb) 3 ml INHALE RQ4H WHILE AWAKE PRN PRN Reason: Shortness of Breath/Wheezing Last Admin: 12/17/23 00:32 Dose: 3 ml Documented By: AALIYAH Calcium Carbonate (Calcium Carbonate 750 Mg Tab.Chew) 750 mg PO Q4H PRN PRN Reason: Heartburn Enoxaparin Sodium (Enoxaparin Sodium 40 Mg/0.4 Ml Syringe) 40 mg SUBCUT Q24H [facility] Last Admin: 12/16/23 15:34 Dose: 40 mg Documented By: MOHAMUD Glucose (Glucose Gel 15 Gm Gel..Gram.) 15 gm PO Q15M PRN; Protocol PRN Reason: per Hypoglycemia Standing Ord. Guaifenesin/Codeine Phosphate (Guaifen/Codeine Sf 200/20/10ml 10 Ml Liquid) 5 ml PO Q4H [facility] Levofloxacin (Levaquin) 750 mg in 150 mls @ 100 mls/hr IV Q24H [facility] Dextrose (D10) 250 mls @ 750 mls/hr IV Q15M PRN; Protocol PRN Reason: per Hypoglycemia Standing Ord. Insulin Human Lispro (Insulin Lispro 100 Unit/Ml 3 Ml Vial) 0 unit SUBCUT QIDACHS [facility]; Protocol Last Admin: 12/16/23 23:33 Dose: Not Given Documented By: BURTON Non-Admin Reason: No Insulin Coverage Magnesium Hydroxide (Milk Of Magnesia 30 Ml Oral.Susp) 30 ml PO DAILY PRN PRN Reason: Constipation Melatonin (Melatonin 3 Mg Tablet) 6 mg PO BEDTIME PRN PRN Reason: Insomnia Methylprednisolone Sodium Succinate (Methylprednisolone Sod Succ 40 Mg/Ml Vial) 40 mg IVPUSH Q12H [facility] Last Admin: 12/16/23 23:28 Dose: 40 mg Documented By: BURTON Nicotine (Nicotine 21 Mg Patch.Td24) 21 mg TRANSDERMA DAILY [facility] Sodium Chloride (0.9 % Sodium Chloride Flush 3 Ml Syringe) 3 ml IVFLUSH QSHIFT [facility] Last Admin: 12/16/23 23:34 Dose: 3 ml Documented By: BURTON Labs 12/17/23 06:13 12/17/23 06:13 Labs: Laboratory Results - last 24 hr 12/16/23 12/16/23 12/16/23 08:57 08:58 14:13 MCV MCH MCHC RDW Plt Count MPV Immature Gran % (Auto) Neut % (Auto) Lymph % (Auto) [place] % (Auto) Eos % (Auto) Baso % (Auto) Lymph # (Auto) [place] # (Auto) Eos # (Auto) Baso # (Auto) Abs Immat Gran (auto) Absolute Neuts (auto) Absolute Nucleated RBC Nucleated RBC % (auto) VBG pH 7.41 7.45 H VBG pCO2 51 42 VBG pO2 54 112 VBG HCO3 33 H 29 H VBG O2 Saturation 84.0 99.0 VBG Base Excess 7.6 5.4 Anion Gap Estim Creat Clear Calc Estimated GFR POC Glucose Random Glucose Calcium Troponin I High Sens 12.4 Urine Color Urine Appearance Urine pH Ur Specific [place] Urine Protein Urine Glucose (UA) Urine Ketones Urine Blood Urine Nitrite Ur Leukocyte Esterase Urine Opiates Screen Ur Buprenorphine Scrn Ur Oxycodone Screen Urine Methadone Screen Urine Fentanyl Screen Ur Barbiturates Screen Ur Phencyclidine Scrn Ur Amphetamines Screen U Benzodiazepines Scrn Urine Cocaine Screen U Marijuana (THC) Screen COVID-19 (LAMBERT) Negative COVID-19 Clin Com See Note 12/16/23 12/16/23 12/16/23 14:18 18:14 23:32 MCV MCH MCHC RDW Plt Count MPV Immature Gran % (Auto) Neut % (Auto) Lymph % (Auto) [place] % (Auto) Eos % (Auto) Baso % (Auto) Lymph # (Auto) [place] # (Auto) Eos # (Auto) Baso # (Auto) Abs Immat Gran (auto) Absolute Neuts (auto) Absolute Nucleated RBC Nucleated RBC % (auto) VBG pH VBG pCO2 VBG pO2 VBG HCO3 VBG O2 Saturation VBG Base Excess Anion Gap Estim Creat Clear Calc Estimated GFR POC Glucose 207 H 149 H Random Glucose Calcium Troponin I High Sens Urine Color Yellow Urine Appearance Cloudy Urine pH 6.5 Ur Specific [place] 1.025 Urine Protein Negative Urine Glucose (UA) Negative Urine Ketones Negative Urine Blood Negative Urine Nitrite Negative Ur Leukocyte Esterase Negative Urine Opiates Screen POSITIVE H Ur Buprenorphine Scrn Not Detected Ur Oxycodone Screen Not Detected Urine Methadone Screen Not Detected Urine Fentanyl Screen POSITIVE H Ur Barbiturates Screen Not Detected Ur Phencyclidine Scrn Not Detected Ur Amphetamines Screen Not Detected U Benzodiazepines Scrn Not Detected Urine Cocaine Screen POSITIVE H U Marijuana (THC) Screen Not Detected COVID-19 ([facility]AMBERT) COVID-19 Clin Com 12/17/23 12/17/23 06:13 07:54 MCV 81.9 MCH 25.8 L MCHC 31.5 RDW 17.3 H Plt Count 351 MPV 9.3 L Immature Gran % (Auto) 0.5 H Neut % (Auto) 87.6 H Lymph % (Auto) 8.5 L [place] % (Auto) 3.1 Eos % (Auto) 0.1 Baso % (Auto) 0.2 Lymph # (Auto) 1.3 [place] # (Auto) 0.5 Eos # (Auto) 0.0 Baso # (Auto) 0.0 Abs Immat Gran (auto) 0.07 H Absolute Neuts (auto) 12.9 H Absolute Nucleated RBC 0.000 Nucleated RBC % (auto) 0.0 VBG pH VBG pCO2 VBG pO2 VBG HCO3 VBG O2 Saturation VBG Base Excess Anion Gap 12 Estim Creat Clear Calc 71.8 Estimated GFR > 60 POC Glucose 244 H Random Glucose 280 H Calcium 9.1 Troponin I High Sens Urine Color Urine Appearance Urine pH Ur Specific [place] Urine Protein Urine Glucose (UA) Urine Ketones Urine Blood Urine Nitrite Ur Leukocyte Esterase Urine Opiates Screen Ur Buprenorphine Scrn Ur Oxycodone Screen Urine Methadone Screen Urine Fentanyl Screen Ur Barbiturates Screen Ur Phencyclidine Scrn Ur Amphetamines Screen U Benzodiazepines Scrn Urine Cocaine Screen U Marijuana (THC) Screen COVID-19 (LAMBERT) COVID-19 Clin Com Assessment and Plan (1) Acute exacerbation of chronic obstructive airways disease: Status: Acute Plan 53F PMH COPD, active smoker, history of diabetes, obesity, GERD, Bustos's esophagus, osteoarthritis, constipation, carpal tunnel syndrome, HENRY, noncompliant with CPAP, history of cocaine use presented with sob Acute hypoxic and hypercapnic respiratory failure due to severe persistent asthma/COPD with acute decompensation weaned from bipap in ed, continue to wean O2 as tolerated Continue steroids, bronchodilators, Levaquin continue maintenance inhalers, theophylline check RPP [id number] type 2 diabetes -POC glucose, diabetic diet -Humalog on sliding scale -hold p.o. antihyperglycemics GERD/Bustos's esophagus -continue famotidine hypertension -continue losartan, Lasix constipation -continue lubiprostone dvt prophylaxis- lovenox full code reason for continued hospitalization: Still very wheezy and short of breath Quality Stroke Does the patient have a stroke diagnosis?: No VTE Prior VTE?: No VTE Risk Level:: Medical - moderate - high VTE Device Contraindication: Treatment Not Indicated VTE Drug Contraindication: N/A - Med Ordered
[2023-12-17] MEDS: Sertraline HCL 100 MG TABLET PO (09:43)
[2023-12-17] MEDS: Aspirin Enteric Coated 81 MG TABLET.DR PO (09:43)
[2023-12-17] MEDS: Gabapentin 400 MG CAPSULE 800 MG PO ×4 (09:43→21:47)
[2023-12-17] MEDS: Theophylline Anhydrous ER 400 MG TAB.ER.24H PO ×2 (09:43→21:47)
[2023-12-17] MEDS: Losartan Potassium 50 MG TABLET PO (09:44)
[2023-12-17] MEDS: Furosemide 20 MG TABLET PO (09:44)
[2023-12-17] MEDS: Omeprazole 40 MG CAPSULE.DR PO (09:54)
[2023-12-17 11:27] LABS: VBG Base Excess 9.6 mmol/L; VBG HCO3 35 mmol/L (22-26); VBG pCO2 51 mmHg; VBG pH 7.44 (7.32-7.43); VBG pO2 92 mmHg
[2023-12-17 11:28] LABS: Venous Blood Gas Refer to POC result
[2023-12-17 11:40] LABS: Adenovirus PCR Not Detected (Not Detect.); Bordetella parapertussis PCR Not Detected (Not Detect.); Bordetella pertussis PCR Not Detected (Not Detect.); Chlamydia pneumoniae PCR Not Detected (Not Detect.); Coronavirus 229E PCR Not Detected (Not Detect.); Coronavirus HKU1 PCR Not Detected (Not Detect.); Coronavirus NL63 PCR Not Detected (Not Detect.); Coronavirus OC43 PCR Not Detected (Not Detect.); Human metapneumovirus PCR Not Detected (Not Detect.); Influenza A PCR Not Detected (Not Detect.); Influenza B PCR Not Detected (Not Detect.); Mycoplasma pneumoniae PCR Not Detected (Not Detect.); Parainfluenza 1 PCR Not Detected (Not Detect.); Parainfluenza 2 PCR Not Detected (Not Detect.); Parainfluenza 3 PCR Not Detected (Not Detect.); Parainfluenza 4 PCR Not Detected (Not Detect.); RSV PCR Not Detected (Not Detect.); Rhino/Enterovirus PCR Not Detected (Not Detect.)
[2023-12-17 11:48] LABS: Glucose, Whole Blood 107 mg/dL (60-115)
[2023-12-17 12:48] LABS: SARS-CoV-2 PCR Not Detected (Not Detect.)
[2023-12-17] MEDS: Enoxaparin Sodium 40 MG/0.4 ML SYRINGE SUBCUT (13:43)
[2023-12-17 16:56] LABS: Glucose, Whole Blood 167 mg/dL (60-115)
[2023-12-17 20:56] LABS: Glucose, Whole Blood 229 mg/dL (60-115)
[2023-12-17] MEDS: Famotidine 20 MG TABLET 10 MG PO (21:47)
[2023-12-18] VITALS: BP 140/77; PULSE 77; RESP 20; TEMP 36.2; O2SAT 90
[2023-12-18] MEDS: guaiFEN/Codeine SF 200/20/10ML 10 ML LIQUID 5 ML PO ×4 (01:52→12:18)
[2023-12-18 03:42] VITALS: BP 161/77; PULSE 103; RESP 20; TEMP 36.7; O2SAT 90
[2023-12-18 06:52] LABS: Hematocrit 38.6 % (37.0-47.0); Hemoglobin 11.9 g/dl (12.0-16.0); Mean Corpuscular HGB Conc 30.8 g/dl (31.0-35.0); Mean Corpuscular Hemoglobin 25.5 pg (27.0-33.0); Mean Corpuscular Volume 82.8 fL (80.0-98.0); Platelet Count 366 X10*3/uL (160-400); Red Blood Count 4.66 X10*6/uL (4.20-5.50); Red Cell Distribution Width 17.5 % (11.0-16.0)
[2023-12-18 06:53] LABS: VBG Base Excess 5.4 mmol/L; VBG HCO3 32 mmol/L (22-26); VBG pCO2 56 mmHg; VBG pH 7.36 (7.32-7.43); VBG pO2 80 mmHg
[2023-12-18] MEDS: Omeprazole 40 MG CAPSULE.DR PO (06:55)
[2023-12-18 07:12] LABS: Anion Gap 11 (12-20); Blood Urea Nitrogen 24 mg/dL (9-16); Calcium 9.3 mg/dL (8.4-10.2); Carbon Dioxide 31 mmol/L (22-29); Chloride 104 mmol/L (96-108); Creatinine Clr Calc Pharmacy 69.3; Estimated Glomerular Filt Rate > 60; Glucose Fasting 179 mg/dL (60-99); Magnesium 1.8 mg/dL (1.6-2.6); Potassium 4.5 mmol/L (3.3-5.1); Sodium 141 mmol/L (135-145)
[2023-12-18 07:26] LABS: Venous Blood Gas Refer to POC result
[2023-12-18] MEDS: Albuterol/Iprat 2.5/0.5MG 3 ML AMPUL.NEB INHALE ×2 (07:46→11:33)
[2023-12-18 07:47] VITALS: PULSE 99; RESP 16; O2SAT 95
[2023-12-18 08:00] VITALS: BP 118/68; PULSE 63; RESP 18; TEMP 36.2; O2SAT 90
[2023-12-18 08:04] LABS: Glucose, Whole Blood 173 mg/dL (60-115)
[2023-12-18] MEDS: Aspirin Enteric Coated 81 MG TABLET.DR PO (08:36)
[2023-12-18] MEDS: Losartan Potassium 50 MG TABLET PO (08:36)
[2023-12-18] MEDS: Gabapentin 400 MG CAPSULE 800 MG PO ×2 (08:36→12:18)
[2023-12-18] MEDS: Nicotine 21 MG PATCH.TD24 TRANSDERMA (08:36)
[2023-12-18] MEDS: levoFLOXacin/D5W 750 MG/150 ML PIGGYBACK 100 MG IV (08:37)
[2023-12-18] MEDS: Insulin Lispro 100 UNIT/ML 3 ML VIAL SUBCUT ×2 (08:37→12:18)
[2023-12-18] MEDS: Sertraline HCL 100 MG TABLET PO (08:37)
[2023-12-18] MEDS: Theophylline Anhydrous ER 400 MG TAB.ER.24H PO (08:37)
[2023-12-18] MEDS: methylPREDNISolone Sod Succ 40 MG/ML VIAL IVPUSH (08:37)
[2023-12-18] MEDS: Furosemide 20 MG TABLET PO (08:37)
--- NOTE | 2023-12-18 09:25 | P.PNIM_ITS ---
Subjective Subjective Date of Service: 12/18/23 Interval History: reports feeling much better despite still actively wehezing Physical Exam 2 Vital Signs: Vital Signs: Last Vital Signs Temp 97.1 F 12/18/23 08:00 Pulse 63 12/18/23 08:00 Resp 18 12/18/23 08:00 BP 118/68 12/18/23 08:00 Pulse Ox 90 L 12/18/23 08:00 O2 Del Method Room Air 12/18/23 08:00 O2 Flow Rate 4 12/18/23 03:42 FiO2 40 12/16/23 15:19 Oxygen Flow Rate 4 12/16/23 07:00 BMI result Body Mass Index 37.3 General: AO X 3, no acute distress Resp: wheezing, poor air movement bilateral, no accessory muscles used CVS: S1,S2,RRR GI: soft, non tender, non distended Neuro: motor grossly intact, alert Psych: appropriate affect, appropriate insight Objective Data Active Medications Acetaminophen (Acetaminophen 325 Mg Tablet) 650 mg PO Q6H PRN PRN Reason: Pain, Mild (Pain Scale 1-3), fever or headache Last Admin: 12/17/23 05:01 Dose: 650 mg Documented By: BURTON Albuterol/Ipratropium (Albuterol/Iprat 2.5/0.5mg 3 Ml Ampul.Neb) 3 ml INHALE RQ4H WHILE AWAKE [facility] Last Admin: 12/18/23 07:46 Dose: 3 ml Documented By: VAZQUEZ Albuterol/Ipratropium (Albuterol/Iprat 2.5/0.5mg 3 Ml Ampul.Neb) 3 ml INHALE RQ4H WHILE AWAKE PRN PRN Reason: Shortness of Breath/Wheezing Last Admin: 12/17/23 00:32 Dose: 3 ml Documented By: AALIYAH Aspirin (Aspirin Enteric Coated 81 Mg Tablet.Dr) 81 mg PO DAILY [facility] Last Admin: 12/18/23 08:36 Dose: 81 mg Documented By: ARIFAMike Calcium Carbonate (Calcium Carbonate 750 Mg Tab.Chew) 750 mg PO Q4H PRN PRN Reason: Heartburn Enoxaparin Sodium (Enoxaparin Sodium 40 Mg/0.4 Ml Syringe) 40 mg SUBCUT Q24H [facility] Last Admin: 12/17/23 13:43 Dose: 40 mg Documented By: OSBALDO Famotidine (Famotidine 20 Mg Tablet) 10 mg PO BEDTIME [facility] Last Admin: 12/17/23 21:47 Dose: 10 mg Documented By: OMARITRIban Furosemide (Furosemide 20 Mg Tablet) 20 mg PO DAILY [facility]; Protocol Last Admin: 12/18/23 08:37 Dose: 20 mg Documented By: PRADEEP Gabapentin (Gabapentin 400 Mg Capsule) 800 mg PO QID [facility] Last Admin: 12/18/23 08:36 Dose: 800 mg Documented By: PRADEEP Glucose (Glucose Gel 15 Gm Gel..Gram.) 15 gm PO Q15M PRN; Protocol PRN Reason: per Hypoglycemia Standing Ord. Guaifenesin/Codeine Phosphate (Guaifen/Codeine Sf 200/20/10ml 10 Ml Liquid) 5 ml PO Q4H [facility] Last Admin: 12/18/23 08:37 Dose: 5 ml Documented By: PRADEEP Levofloxacin (Levaquin) 750 mg in 150 mls @ 100 mls/hr IV Q24H [facility] Last Admin: 12/18/23 08:37 Dose: 100 mls/hr Documented By: PRADEEP Dextrose (D10) 250 mls @ 750 mls/hr IV Q15M PRN; Protocol PRN Reason: per Hypoglycemia Standing Ord. Insulin Human Lispro (Insulin Lispro 100 Unit/Ml 3 Ml Vial) 0 unit SUBCUT QIDACHS [facility]; Protocol Last Admin: 12/18/23 08:37 Dose: 2 unit Documented By: PRADEEP Losartan Potassium (Losartan Potassium 50 Mg Tablet) 50 mg PO DAILY [facility]; Protocol Last Admin: 12/18/23 08:36 Dose: 50 mg Documented By: PRADEEP Magnesium Hydroxide (Milk Of Magnesia 30 Ml Oral.Susp) 30 ml PO DAILY PRN PRN Reason: Constipation Melatonin (Melatonin 3 Mg Tablet) 6 mg PO BEDTIME PRN PRN Reason: Insomnia Methylprednisolone Sodium Succinate (Methylprednisolone Sod Succ 40 Mg/Ml Vial) 40 mg IVPUSH Q12H [facility] Last Admin: 12/18/23 08:37 Dose: 40 mg Documented By: PRADEEP Nicotine (Nicotine 21 Mg Patch.Td24) 21 mg TRANSDERMA DAILY [facility] Last Admin: 12/18/23 08:36 Dose: 21 mg Documented By: PRADEEP Omeprazole (Omeprazole 40 Mg Capsule.Dr) 40 mg PO DAILY@0630 [facility] Last Admin: 12/18/23 06:55 Dose: 40 mg Documented By: BURTON Sertraline HCl (Sertraline Hcl 100 Mg Tablet) 100 mg PO DAILY [facility] Last Admin: 12/18/23 08:37 Dose: 100 mg Documented By: PRADEEP Sodium Chloride (0.9 % Sodium Chloride Flush 3 Ml Syringe) 3 ml IVFLUSH QSHIFT [facility] Last Admin: 12/18/23 07:31 Dose: Not Given Documented By: PRADEEP Non-Admin Reason: Previously Administered Theophylline (Theophylline Anhydrous Er 400 Mg Tab.Er.24h) 400 mg PO BID [facility] Last Admin: 12/18/23 08:37 Dose: 400 mg Documented By: PRADEEP Tizanidine HCl (Tizanidine Hcl 4 Mg Tablet) 4 mg PO Q8H PRN PRN Reason: muscle spasm Labs 12/18/23 06:44 12/18/23 06:44 Labs: Laboratory Results - last 24 hr 12/16/23 12/17/23 12/17/23 19:54 11:20 11:44 MCV MCH MCHC RDW Plt Count MPV Absolute Nucleated RBC Nucleated RBC % (auto) VBG pH 7.44 H VBG pCO2 51 VBG pO2 92 VBG HCO3 35 H VBG O2 Saturation 98.0 VBG Base Excess 9.6 Anion Gap Estim Creat Clear Calc Estimated GFR POC Glucose 107 Fasting Glucose Calcium Magnesium Respiratory Panel Keys See Note Adenovirus (Rapid PCR) Not Detected B.pert (TEM-PCR) Not Detected B.parapertussis DNA PCR Not Detected C. pneumoniae DNA (PCR) Not Detected Coronavirus OC43 (PCR) Not Detected Coronavirus HKU1 (PCR) Not Detected Coronavirus 229E (PCR) Not Detected Coronavirus NL63 (PCR) Not Detected Human Metapneumovir PCR Not Detected Influenza A (RT-PCR) Not Detected Influenza B (RT-PCR) Not Detected M. pneumoniae (PCR) Not Detected Parainfluenza 1 (PCR) Not Detected Parainfluenza 2 (PCR) Not Detected Parainfluenza 3 (PCR) Not Detected Parainfluenza 4 (PCR) Not Detected RSV (PCR) Not Detected Entero/Rhino (PCR) Not Detected SARS-CoV-2 RNA (RT-PCR) Not Detected 12/17/23 12/17/23 12/18/23 16:50 20:52 06:44 MCV 82.8 MCH 25.5 L MCHC 30.8 L RDW 17.5 H Plt Count 366 MPV 9.0 L Absolute Nucleated RBC 0.000 Nucleated RBC % (auto) 0.0 VBG pH VBG pCO2 VBG pO2 VBG HCO3 VBG O2 Saturation VBG Base Excess Anion Gap 11 L Estim Creat Clear Calc 69.3 Estimated GFR > 60 POC Glucose 167 H 229 H Fasting Glucose 179 H Calcium 9.3 Magnesium 1.8 Respiratory Panel Keys Adenovirus (Rapid PCR) B.pert (TEM-PCR) B.parapertussis DNA PCR C. pneumoniae DNA (PCR) Coronavirus OC43 (PCR) Coronavirus HKU1 (PCR) Coronavirus 229E (PCR) Coronavirus NL63 (PCR) Human Metapneumovir PCR Influenza A (RT-PCR) Influenza B (RT-PCR) M. pneumoniae (PCR) Parainfluenza 1 (PCR) Parainfluenza 2 (PCR) Parainfluenza 3 (PCR) Parainfluenza 4 (PCR) RSV (PCR) Entero/Rhino (PCR) SARS-CoV-2 RNA (RT-PCR) 12/18/23 12/18/23 06:45 08:00 MCV MCH MCHC RDW Plt Count MPV Absolute Nucleated RBC Nucleated RBC % (auto) VBG pH 7.36 VBG pCO2 56 VBG pO2 80 VBG HCO3 32 H VBG O2 Saturation 97.0 VBG Base Excess 5.4 Anion Gap Estim Creat Clear Calc Estimated GFR POC Glucose 173 H Fasting Glucose Calcium Magnesium Respiratory Panel Keys Adenovirus (Rapid PCR) B.pert (TEM-PCR) B.parapertussis DNA PCR C. pneumoniae DNA (PCR) Coronavirus OC43 (PCR) Coronavirus HKU1 (PCR) Coronavirus 229E (PCR) Coronavirus NL63 (PCR) Human Metapneumovir PCR Influenza A (RT-PCR) Influenza B (RT-PCR) M. pneumoniae (PCR) Parainfluenza 1 (PCR) Parainfluenza 2 (PCR) Parainfluenza 3 (PCR) Parainfluenza 4 (PCR) RSV (PCR) Entero/Rhino (PCR) SARS-CoV-2 RNA (RT-PCR) Microbiology Microbiology Results: Microbiology 12/16/23 07:07 Blood Culture - Preliminary Blood - Venous No growth after 48 hours. 12/16/23 07:25 Blood Culture - Preliminary Blood - Venous No growth after 24 hours. Assessment and Plan (1) Acute exacerbation of chronic obstructive airways disease: Status: Acute Plan 53F PMH COPD, active smoker, history of diabetes, obesity, GERD, Bustos's esophagus, osteoarthritis, constipation, carpal tunnel syndrome, HENRY, noncompliant with CPAP, history of cocaine use presented with sob Acute hypoxic and hypercapnic respiratory failure due to severe persistent asthma/COPD with acute decompensation weaned from bipap in ed, continue to wean O2 as tolerated Continue steroids, bronchodilators, Levaquin continue maintenance inhalers, theophylline [id number] type 2 diabetes -POC glucose, diabetic diet -Humalog on sliding scale -hold p.o. antihyperglycemics GERD/Bustos's esophagus -continue famotidine hypertension -continue losartan, Lasix constipation -continue lubiprostone obesity weight loss recommended dvt prophylaxis- lovenox full code reason for continued hospitalization: Still very wheezy, hypoxic Quality Stroke Does the patient have a stroke diagnosis?: No VTE Prior VTE?: No VTE Risk Level:: Medical - moderate - high VTE Device Contraindication: Treatment Not Indicated VTE Drug Contraindication: N/A - Med Ordered
--- NOTE | 2023-12-18 11:09 | P.DS_ITS ---
DS: Providers Provider Date of Service: 12/18/23 Date of admission: 12/16/23 14:22 Primary care physician: DOTTY Lazcano DS: Diagnosis Discharge Diagnosis (1) Acute exacerbation of chronic obstructive airways disease: Status: Acute DS: Summary Hospital Course Hospital Course: from initial hpi: 53 year old female with history of COPD, active smoker, history of diabetes, obesity, GERD, Bustos's esophagus, osteoarthritis, constipation, carpal tunnel syndrome, HENRY, noncompliant with CPAP, history of cocaine use presented to the ED earlier today for evaluation of shortness of breath and productive cough with yellow sputum that started 2 days ago. Has been very anxious and unable to sleep r/t her symptoms. She denies fevers, chills, st, congestion, abd pain n/v/d, lightheadedness, chest pain. She has noted increase in albuterol usage. Recently admitted overnight 11/07 for copd exacerbation. Not on home O2. Continues smoking 1PPD. On arrival, vss. However, given ongoing tachypnea/increased wob was placed on bipap and has been weaned to 2L supplemental O2 maintaining oximetry 93%. She has been placed back on bipap by RT when pt sleeping. She has a leukocytosis 14.7. Renal fx and lytes normal, except co2 30. Initial trop 13.0, repeat 12.4. BNP 82. negative for COVID19. PCT 0.02. CXR shows reticulo-nodular opactities, suspect chronic r/t scarring from COPD. Recevied 125mg iv methprednisolone by ems and has received multiple duonebs and iv levaquin and mag. She will be admitted for further management of acute copd exacerbation. hospital course: Patient was admitted for acute hypoxic and hypercapnic respiratory failure due to severe persistent asthma/COPD with acute decompensation. She was weaned from BiPAP in the ER, treated with IV steroids, bronchodilators, Levaquin. Symptoms significantly improved. She was weaned off oxygen and able to ambulate on room air without shortness of breath despite ongoing wheezes. On discharge will continue 5 more days of prednisone and Levaquin. For diabetes was continued on basal bolus insulin. For Bustos's esophagus continued on famotidine. For hypertension continue losartan and Lasix. For obesity weight loss recommended. Time Attestation Discharge Coordination Time (in mins): 32 Quality: Safe Use of Opioids Does Pt have an Active Cancer Diagnosis on the Problem List?: No Quality: Stroke Does the patient have a stroke diagnosis?: No Physical Exam Vital Signs: Vital Signs: Last Vital Signs Temp 97.1 F 12/18/23 08:00 Pulse 63 12/18/23 08:00 Resp 18 12/18/23 08:00 BP 118/68 12/18/23 08:00 Pulse Ox 90 L 12/18/23 08:00 O2 Del Method Room Air 12/18/23 08:00 O2 Flow Rate 4 12/18/23 03:42 FiO2 40 12/16/23 15:19 Oxygen Flow Rate 4 12/16/23 07:00 BMI result Body Mass Index 37.3 General: AO X 3, no acute distress Resp: wheeze bilateral, no accessory muscles used CVS: S1,S2,RRR GI: soft, non tender, non distended Neuro: motor grossly intact, alert Psych: appropriate affect, appropriate insight DS: Data Data Completed and Pending Completed studies during hospitalization [Text1]: Procedures Assistance with Respiratory Ventilation, Less than 24 Consecutive Hours, Continuous Positive Airway Pressure (06/01/23) Insertion of Endotracheal Airway into Trachea, Via Natural or Artificial Opening (11/03/20) Insertion of Infusion Device into Superior Vena Cava, Percutaneous Approach (11/03/20) Respiratory Ventilation, Less than 24 Consecutive Hours (11/03/20) Labs on day of discharge: Laboratory Results - last 24 hr 12/16/23 12/17/23 12/17/23 19:54 11:20 11:44 WBC RBC Hgb Hct MCV MCH MCHC RDW Plt Count MPV Absolute Nucleated RBC Nucleated RBC % (auto) VBG pH 7.44 H VBG pCO2 51 VBG pO2 92 VBG HCO3 35 H VBG O2 Saturation 98.0 VBG Base Excess 9.6 Sodium Potassium Chloride Carbon Dioxide Anion Gap BUN Creatinine Estim Creat Clear Calc Estimated GFR POC Glucose 107 Fasting Glucose Calcium Magnesium Respiratory Panel Keys See Note Adenovirus (Rapid PCR) Not Detected B.pert (TEM-PCR) Not Detected B.parapertussis DNA PCR Not Detected C. pneumoniae DNA (PCR) Not Detected Coronavirus OC43 (PCR) Not Detected Coronavirus HKU1 (PCR) Not Detected Coronavirus 229E (PCR) Not Detected Coronavirus NL63 (PCR) Not Detected Human Metapneumovir PCR Not Detected Influenza A (RT-PCR) Not Detected Influenza B (RT-PCR) Not Detected M. pneumoniae (PCR) Not Detected Parainfluenza 1 (PCR) Not Detected Parainfluenza 2 (PCR) Not Detected Parainfluenza 3 (PCR) Not Detected Parainfluenza 4 (PCR) Not Detected RSV (PCR) Not Detected Entero/Rhino (PCR) Not Detected SARS-CoV-2 RNA (RT-PCR) Not Detected 12/17/23 12/17/23 12/18/23 16:50 20:52 06:44 WBC 15.0 H RBC 4.66 Hgb 11.9 L Hct 38.6 MCV 82.8 MCH 25.5 L MCHC 30.8 L RDW 17.5 H Plt Count 366 MPV 9.0 L Absolute Nucleated RBC 0.000 Nucleated RBC % (auto) 0.0 VBG pH VBG pCO2 VBG pO2 VBG HCO3 VBG O2 Saturation VBG Base Excess Sodium 141 Potassium 4.5 Chloride 104 Carbon Dioxide 31 H Anion Gap 11 L BUN 24 H Creatinine 0.86 Estim Creat Clear Calc 69.3 Estimated GFR > 60 POC Glucose 167 H 229 H Fasting Glucose 179 H Calcium 9.3 Magnesium 1.8 Respiratory Panel Keys Adenovirus (Rapid PCR) B.pert (TEM-PCR) B.parapertussis DNA PCR C. pneumoniae DNA (PCR) Coronavirus OC43 (PCR) Coronavirus HKU1 (PCR) Coronavirus 229E (PCR) Coronavirus NL63 (PCR) Human Metapneumovir PCR Influenza A (RT-PCR) Influenza B (RT-PCR) M. pneumoniae (PCR) Parainfluenza 1 (PCR) Parainfluenza 2 (PCR) Parainfluenza 3 (PCR) Parainfluenza 4 (PCR) RSV (PCR) Entero/Rhino (PCR) SARS-CoV-2 RNA (RT-PCR) 12/18/23 12/18/23 06:45 08:00 WBC RBC Hgb Hct MCV MCH MCHC RDW Plt Count MPV Absolute Nucleated RBC Nucleated RBC % (auto) VBG pH 7.36 VBG pCO2 56 VBG pO2 80 VBG HCO3 32 H VBG O2 Saturation 97.0 VBG Base Excess 5.4 Sodium Potassium Chloride Carbon Dioxide Anion Gap BUN Creatinine Estim Creat Clear Calc Estimated GFR POC Glucose 173 H Fasting Glucose Calcium Magnesium Respiratory Panel Keys Adenovirus (Rapid PCR) B.pert (TEM-PCR) B.parapertussis DNA PCR C. pneumoniae DNA (PCR) Coronavirus OC43 (PCR) Coronavirus HKU1 (PCR) Coronavirus 229E (PCR) Coronavirus NL63 (PCR) Human Metapneumovir PCR Influenza A (RT-PCR) Influenza B (RT-PCR) M. pneumoniae (PCR) Parainfluenza 1 (PCR) Parainfluenza 2 (PCR) Parainfluenza 3 (PCR) Parainfluenza 4 (PCR) RSV (PCR) Entero/Rhino (PCR) SARS-CoV-2 RNA (RT-PCR) Preliminary micro results at discharge 12/16/23 07:25 Blood Culture - Preliminary Blood - Venous No growth after 48 hours. 12/16/23 07:07 Blood Culture - Preliminary Blood - Venous No growth after 48 hours. Discharge Plan Discharge Anticipated Discharge Date/Time: 12/18/23 11:04 Patient Disposition: Home, Self-Care Discharge Diagnosis: asthma/copd Referrals: Joe Hale, [employer]- [Primary Care Provider] - 1 Week Discharge Medications: New prednisone 20 mg tablet 40 mg PO DAILY Qty: 10 0RF levofloxacin 500 mg tablet 500 mg PO Q24H Qty: 5 0RF Continued (DME) lancets [FreeStyle Lancets] 28 gauge misc See Rx Instructions .ROUTE .MEDSUPPLY Qty: 100 1RF Rx Instructions: Use to check blood sugar daily or if symptomatic hypo/hypergylcemia (DME) 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 meter [FreeStyle Lite Meter] Kit See Rx Instructions .ROUTE .MEDSUPPLY Qty: 1 0RF Rx Instructions: Use to check blood sugar daily or if symptomatic for hypo/hyperglycemia (DME) FreeStyle Lite Strips Strip See Rx Instructions .ROUTE .MEDSUPPLY Qty: 100 1RF Rx Instructions: Use to check blood sugar daily or if symptomatic hypo/hypergylcemia theophylline 400 mg tablet extended release 24 hr 400 mg PO BID 90 Days Qty: 180 4RF famotidine [Heartburn Relief (famotidine)] 10 mg tablet 10 mg PO BEDTIME Qty: 90 0RF ibuprofen 800 mg tablet 800 mg PO BID PRN (Reason: pain) Qty: 60 0RF Rx Instructions: please use sparingly due to diabetes tizanidine 4 mg tablet 4 mg PO Q8H PRN (Reason: muscle spasm) 30 Days Qty: 90 0RF Rx Instructions: do not take concurrently with famotidine ipratropium bromide 0.02 % solution 2.5 ml inhalation Q6H PRN (Reason: for wheezing) 30 Days Qty: 187.5 6RF acetaminophen 650 mg tablet extended release 650 mg PO Q12H PRN (Reason: pain) 30 Days Qty: 60 0RF aspirin 81 mg tablet,delayed release (DR/EC) 81 mg PO DAILY 90 Days Qty: 90 1RF calcium carbonate-vitamin D3 500 mg-10 mcg (400 unit) tablet 1 tab PO BID 30 Days Qty: 60 6RF furosemide 20 mg tablet 20 mg PO DAILY Qty: 90 3RF glipizide 5 mg tablet 5 mg PO DAILY 90 Days Qty: 90 0RF Jardiance 10 mg tablet 10 mg PO QAM Qty: 30 0RF losartan 50 mg tablet 50 mg PO DAILY Qty: 90 1RF sertraline 100 mg tablet 100 mg PO DAILY Qty: 90 0RF gabapentin 800 mg tablet 800 mg PO QID Qty: 120 0RF albuterol sulfate 90 mcg/actuation HFA aerosol inhaler 2 puff inhalation QID Qty: 8.5 3RF dexlansoprazole [Dexilant] 60 mg capsule,biphase delayed releas 60 mg PO DAILY@0630 Discharge Orders: Discharge Order (Routine); Ordered 12/18/23 Ordered By: Pierre Agustin Diet: Advance to usual diet Activity on Discharge: As tolerated Stand Alone Forms: Patient Portal Discharge page Print Language: [place] Care Plan Goals: [facility] Concerns: asthma/copd Plan of Treatment: prednisone, levaquin Assessment: see above
--- NOTE | 2023-12-18 11:25 | MHC.CM.PN ---
Pt. has been medically cleared for DC, she will go home via [facility] shuttle, DCP: self care.
[2023-12-18 11:35] VITALS: PULSE 119; RESP 20; O2SAT 92
[2023-12-18 11:55] LABS: Glucose, Whole Blood 164 mg/dL (60-115)
[2023-12-18 12:00] VITALS: BP 142/70; PULSE 104; RESP 18; TEMP 36; O2SAT 98
[2023-12-25 09:31] LABS: Theophylline 1.2
== END 2023-12-18 13:57 | disposition home or self-care (01) | DRG 140 ==
LOC: HO.ED 07:43 → HO.EDOVER 14:31 → HO.IMC 19:27
PROVIDERS: Physician Assistant; Admitting Provider Physician Assistant; Emergency Provider Emergency Medicine; PCP Nurse Practitioner Family; Visit Provider Internal Medicine
DX: J44.1 Chronic obstructive pulmonary disease with (acute) exacerbation (principal); J96.01 Acute respiratory failure with hypoxia; J96.02 Acute respiratory failure with hypercapnia; F17.210 Nicotine dependence, cigarettes, uncomplicated; K21.9 Gastro-esophageal reflux disease without esophagitis; K22.70 Barrett's esophagus without dysplasia; J45.51 Severe persistent asthma with (acute) exacerbation; E11.9 Type 2 diabetes mellitus without complications; K59.00 Constipation, unspecified; E66.9 Obesity, unspecified; Z68.37 Body mass index [BMI] 37.0-37.9, adult; I10 Essential (primary) hypertension; G47.33 Obstructive sleep apnea (adult) (pediatric); Z20.822 Contact with and (suspected) exposure to COVID-19; Z71.6 Tobacco abuse counseling; Z91.199 Patient's noncompliance with other medical treatment and regimen due to unspecified reason; Z79.82 Long term (current) use of aspirin; Z79.84 Long term (current) use of oral hypoglycemic drugs; Z79.899 Other long term (current) drug therapy
CPT/HCPCS: 36415; 71045; 80048; 80076; 80198; 80307; 81003; 82803; 82947; 83605; 83735; 83880; 84145; 84484; 85025; 85027; 87040; 87633; 87635; 93005; 94640; 94660; 99285; J1650; J1956; J2919; J3475

== ENCOUNTER → 2023-12-16 06:51 | Outpatient (BNV) | payer OTHER, SELFPAY | PROVIDERS: Emergency Provider Emergency Medicine; PCP Nurse Practitioner Family; Visit Provider Internal Medicine Cardiovascular Disease | DX: R06.02 Shortness of breath (principal) | CPT/HCPCS: 93010 ==

== ENCOUNTER → 2023-12-16 14:22 | Outpatient (BNV) | payer OTHER, SELFPAY | PROVIDERS: Admitting Provider Physician Assistant; Emergency Provider Emergency Medicine; PCP Nurse Practitioner Family; Visit Provider Physician Assistant | DX: J44.1 Chronic obstructive pulmonary disease with (acute) exacerbation (principal); E11.9 Type 2 diabetes mellitus without complications; K21.9 Gastro-esophageal reflux disease without esophagitis; I10 Essential (primary) hypertension | CPT/HCPCS: 99223; 99232; 99239; 99499 ==

== ENCOUNTER 2023-12-31 07:41 | Inpatient (IN) | payer OTHER, SELFPAY ==
[2023-12-31] VITALS (9 sets, daily range): BP systolic 99–140; BP diastolic 63–80; PULSE 79–117; RESP 17–26; TEMP 36.2–36.9; O2SAT 78–100; BMI 35.8
--- NOTE | ~2023-12-31 | XR_ITS ---
EXAMINATION: XR CHEST CLINICAL INFORMATION: Shortness of breath COMPARISON: 12/16/2023 TECHNIQUE: Frontal view of the chest was obtained. FINDINGS: The lungs are better expanded than prior. Heart size within normal limits. No evidence of CHF. There is some minimal right basilar atelectasis with improvement of previously seen left atelectasis. No consolidations or pleural effusions. Old left-sided rib fractures again seen. There is calcification noted in the left supraspinatus tendon. XR/XR chest 1V IMPRESSION: No acute intrathoracic disease. Minimal right basilar atelectasis.
--- NOTE | ~2023-12-31 | XR_ITS ---
EXAMINATION: XR LUMBOSACRAL SPINE CLINICAL INFORMATION: Low back pain COMPARISON: None available. TECHNIQUE: Three views of the lumbosacral spine. FINDINGS: There is grade 1-2 forward spondylolisthesis, L4 upon L5 by 4.5 mm with gaseous disc degeneration. Alignment otherwise normal. No fracture or destructive lesion. There is facet degenerative change L4-S1. Vascular calcifications are noted. Anterior abdominal suture/ring markers noted as are clips in the right upper quadrant. XR/XR lumbar spine 2-3V IMPRESSION: Degenerative changes observed particularly L4-L5.
--- NOTE | 2023-12-31 08:00 | ECG_ITS ---
Test Reason : CHEST PAIN Blood Pressure : / mmHG Vent. Rate : 101 BPM Atrial Rate : 101 BPM P-R Int : 124 ms QRS Dur : 084 ms QT Int : 356 ms P-R-T Axes : 056 165 010 degrees QTc Int : 461 ms Sinus tachycardia with Premature atrial complexes Low voltage QRS Left posterior fascicular block Inferior infarct , age undetermined Cannot rule out Anterior infarct (cited on or before 16-DEC-2023) Abnormal ECG When compared with ECG of 16-DEC-2023 07:04, Nonspecific T wave abnormality now evident in Inferior leads T wave inversion now evident in Anterior leads QT has lengthened Referred By: Shona Ewing Electronically Signed By:DAVIS WALKER
[2023-12-31 08:12] LABS: MANUAL DIFF FLAG NO
[2023-12-31 08:17] LABS: Basophils Percent Auto 0.3 % (0-2); Eosinophils Absolute Auto 0.2 X10*3/uL (0.0-0.4); Eosinophils Percent Auto 1.2 % (0-4); Hemoglobin 13.6 g/dl (12.0-16.0); Imm Gran Abs Auto 0.05 X10*3/uL (0.00-0.03); Imm Gran Pct Auto 0.4 % (0.0-0.4); Lymphocytes Absolute Auto 3.2 X10*3/uL (1.2-4.9); Lymphocytes Percent Auto 23.6 % (20-40); Mean Corpuscular HGB Conc 30.9 g/dl (31.0-35.0); Mean Corpuscular Hemoglobin 25.5 pg (27.0-33.0); Mean Corpuscular Volume 82.6 fL (80.0-98.0); Mean Platelet Volume 9.2 fL (9.4-12.3); Monocytes Absolute Auto 1.1 X10*3/uL (0.1-1.2); Monocytes Percent Auto 7.9 % (2-11); Neutrophils Percent Auto 66.6 % (45-73); Platelet Count 430 X10*3/uL (160-400); Red Blood Count 5.33 X10*6/uL (4.20-5.50); Red Cell Distribution Width 18.2 % (11.0-16.0); White Blood Count 13.6 X10*3/uL (4.8-10.8)
[2023-12-31 08:21] LABS: Prothrombin Time 12.2 SEC (11.1-13.3)
[2023-12-31] MEDS: Cyclobenzaprine HCl 5 MG TABLET PO (08:21)
[2023-12-31] MEDS: methylPREDNISolone Sod Succ 125 MG/2 ML VIAL IVPUSH (08:22)
[2023-12-31] MEDS: 0.9 % Sodium Chloride 500 ML 999 ML IV (08:25)
[2023-12-31] MEDS: cefEPime HCl 2 GM in 0.9 % Sodium Chloride 50 ML IV (08:26)
[2023-12-31] MEDS: Albuterol Sulfate 5 MG, Albuterol/Iprat 2.5/0.5MG 3 ML 3 ML INHALE (08:26)
--- NOTE | 2023-12-31 08:32 | PC.NURSE ---
patient noted to be laying on side without nasal cannula on, noted to be saturating at 78-79% on room air. still enorsing pain at this time
[2023-12-31 08:34] LABS: Lactic Acid 2.5 mmol/L (0.5-2.0)
[2023-12-31 08:35] LABS: Alanine Aminotransferase 14 U/L (0-31); Albumin Level 3.9 g/dL (3.5-5.0); Alkaline Phosphatase 79 U/L (39-117); Anion Gap 17 (12-20); Aspartate Amino Transferase 11 U/L (5-31); Bilirubin Direct 0.1 mg/dL (0.0-0.5); Bilirubin Total 0.4 mg/dL (0.0-1.0); Blood Urea Nitrogen 13 mg/dL (9-16); Calcium 9.8 mg/dL (8.4-10.2); Carbon Dioxide 28 mmol/L (22-29); Chloride 100 mmol/L (96-108); Creatinine Clr Calc Pharmacy 71.1; Estimated Glomerular Filt Rate > 60; Glucose Random 151 mg/dL (60-115); Magnesium 1.4 mg/dL (1.6-2.6); Potassium 3.9 mmol/L (3.3-5.1); Sodium 141 mmol/L (135-145); Total Protein 6.9 g/dL (6.5-8.0)
[2023-12-31 08:37] LABS: B Type Natriuretic Peptide 176 pg/mL (<100)
[2023-12-31 08:45] LABS: Troponin-I High Sensitivity 16.8 ng/L (<3.5-17.0)
[2023-12-31] MEDS: Magnesium Sulfate/H2O 2 GM/50 ML PIGGYBACK IV (08:59)
--- NOTE | 2023-12-31 09:03 | PC.NURSE ---
patient continues to lay on side an take off oxygen despite education. when not wearing O2 patient saturating at 86% on room air after breathing treatment. patient placed back on 3L of oxygen to maintain saturation of 91-93%
[2023-12-31 09:44] LABS: Influenza A PCR NEGATIVE (Negative); Influenza B PCR NEGATIVE (Negative); Resp Syncy Virus RNA Qual PCR NEGATIVE (Negative); SARS COV2 PCR INHOUSE NEGATIVE (Negative)
--- NOTE | 2023-12-31 09:53 | PC.NURSE ---
patient placed on CPAP by respiratory with improvement of O2 saturations to 95%
--- NOTE | 2023-12-31 10:05 | ED_ITS ---
HPI - Chest Pain General Chief Complaint: Chest Pain Stated Complaint: RLE PAIN,SOB,CP PER EMS Time Seen by Provider: 12/31/23 07:42 Source: patient, EMS, RN notes reviewed and old records reviewed Mode of arrival: EMS History of Present Illness ED Provider: Shona Ewing PA-C HPI narrative: 53-year-old female with a past medical history of COPD, active smoker, diabetes, obesity, GERD, Bustos's esophagus, OA, constipation, HENRY noncompliant with CPAP, cocaine use, recently admitted to our facility for acute exacerbation of COPD discharged on 12/18/2023 with p.o. prednisone and Levaquin, presenting back to the ED via EMS complaining of SOB, CP and right-sided low back pain radiating down RLE x yesterday. Reports associated numbness/tingling & weakness to RLE. Denies fever, chills, incontinence/retention, injury/trauma or fall Related Data Home Medications ?Medication ?Instructions ?Recorded ?Confirmed dexlansoprazole 60 mg 60 mg PO DAILY@0630 12/16/23 12/31/23 capsule,biphase delayed release (Dexilant) Previous Rx's ?Medication ?Instructions ?Recorded lancets 28 gauge (FreeStyle #100 ea 01/20/21 Lancets) 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 meter (FreeStyle #1 ea 03/01/22 Lite Meter kit) blood sugar diagnostic (FreeStyle #100 ea 09/16/22 Lite Strips) theophylline 400 mg 400 mg PO BID 90 days #180 tabs 12/24/22 tablet,extended release 24 hr albuterol sulfate 90 mcg/actuation 2 puff inhalation QID #8.5 grams 06/03/23 aerosol inhaler famotidine 10 mg tablet (Heartburn 10 mg PO BEDTIME #90 tabs 07/22/23 Relief (famotidine)) ibuprofen 800 mg tablet 800 mg PO BID PRN pain #60 tabs 10/28/23 tizanidine 4 mg tablet 4 mg PO Q8H PRN muscle spasm 30 11/25/23 days #90 tabs acetaminophen 650 mg 650 mg PO Q12H PRN pain 30 days 12/09/23 tablet,extended release #60 tabs aspirin 81 mg tablet,delayed 81 mg PO DAILY 90 days #90 tabs 12/09/23 release calcium carbonate 500 mg-vitamin 1 tab PO BID 30 days #60 tabs 12/09/23 D3 10 mcg (400 unit) tablet furosemide 20 mg tablet 20 mg PO DAILY #90 tabs 12/09/23 glipizide 5 mg tablet 5 mg PO DAILY 90 days #90 tabs 12/09/23 ipratropium bromide 0.02 % 2.5 ml inhalation Q6H PRN for 12/09/23 solution for inhalation wheezing 30 days #187.5 mL losartan 50 mg tablet 50 mg PO DAILY #90 tabs 12/09/23 sertraline 100 mg tablet 100 mg PO DAILY #90 tabs 12/09/23 gabapentin 800 mg tablet 800 mg PO QID #120 tabs 12/10/23 Allergies Allergy/AdvReac Type Severity Reaction Status Date / Time doxycycline Allergy Severe Swelling Verified 12/31/23 07:53 varenicline [From CHANTIX] Allergy Severe ANAPHYLAXIS Verified 12/31/23 07:53 azithromycin Allergy Intermediate Rash Verified 12/31/23 07:53 barium sulfate Allergy Intermediate angioedema Verified 12/31/23 07:53 cetirizine Allergy Mild Rash Verified 12/31/23 07:53 famotidine Allergy Mild Rash Verified 12/31/23 07:53 linaclotide [Linzess] Allergy Mild Rash Verified 12/31/23 07:53 Review of Systems 2 Review of Systems: Constitutional: No Fever, No Chills ENT/Mouth: No Ear Pain, No Nasal Congestion, No sore throat, No Rhinorrhea, No Swallowing Difficulty Cardiovascular: +Chest Pain, +SOB Respiratory: No Cough, No Sputum, +Wheezing Gastrointestinal: No Nausea, No Vomiting, No Diarrhea, No Constipation, No Abdominal pain Genitourinary: No Dysuria, No Urinary Frequency, No Hematuria, No Urinary Incontinence/retention, No Urgency, No Flank Pain Musculoskeletal: +joint pain, No Myalgias, No Joint Swelling Skin: No Skin Lesions, No rash Neuro: No Weakness, +Numbness, + Paresthesias Yes all other systems are reviewed and are negative Constitutional: Constitutional: Reports as per [facility] Past Medical History Attestation statement: The following information was validated with the patient. Source: old records reviewed Medical History COPD (chronic obstructive pulmonary disease) Diabetes mellitus COPD exacerbation Sleep apnea Crack cocaine use Hyperkalemia Acute exacerbation of COPD with asthma Metabolic acidosis Leukocytosis UTI (urinary tract infection) Acute respiratory failure with hypoxia Chest discomfort Chronic renal failure, stage 2 (mild) Acute and chronic respiratory failure with hypercapnia SOB (shortness of breath) Asthma Encounter for preoperative pulmonary examination Smoker Rotator cuff tendonitis GERD (gastroesophageal reflux disease) Chronic idiopathic constipation Bustos's esophagus Depression High triglycerides Gastroparesis Carpal tunnel syndrome of right wrist Nausea & vomiting Hernia Acute and chronic respiratory failure, unspecified whether with hypoxia or hypercapnia Respiratory failure HTN (hypertension) Obesity (BMI 30-39.9) Knee pain, bilateral Surgical History History of carpal tunnel release Hx of tubal ligation History of pubovaginal sling History of umbilical hernia repair Hx of section History of open reduction and internal fixation (ORIF) procedure Hx of cholecystectomy History of esophagogastroduodenoscopy (EGD) Family History Family History Father Heart disease HENRY (obstructive sleep apnea) Family history of breast cancer Mother Asthma Emphysema, unspecified Bronchitis Smoker Alcoholism Bone marrow disease Maternal Grandmother Diabetes Social History Social History Household Members: Other Household Members Other:: daughter Housing: House Are you a primary care tech to a significant other at home: No Do you presently have visiting nurse or other home services: No Unable to assess alcohol history related to: Unknown Alcohol intake: former Comment: Sleeping Patient Tobacco Use Status: Current everyday Tobacco user Tobacco use type: Cigarette Cigarette Packs Per Day: 1 Cigarettes Per Day: 20.0 Years Smoked: 48 e-Cigarette/Vaping Use: Currently Using Second Hand Smoke Exposure: No Substance Use Type: Crack/Cocaine Advance Directives: Yes Advance Directives on File: Yes Advance Directives Date on File: 04/15/20 Do you have a plan to hurt others: No Plan Patient : No service: No Current occupational status: disabled 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 Physical Exam 2 Vital Signs: Vital Signs: Last Vital Signs Temp 98.2 F 12/31/23 12:18 Pulse 105 H 12/31/23 12:18 Resp 21 H 12/31/23 12:18 BP 134/78 12/31/23 12:18 Pulse Ox 100 12/31/23 12:18 O2 Del Method Nasal Cannula 12/31/23 12:18 O2 Flow Rate 3 12/31/23 12:18 Oxygen Flow Rate 3 12/31/23 07:50 BMI result Body Mass Index 35.8 Const: General: cooperative, healthy appearing and no acute distress O rientation/consciousness: patient oriented x3 Limitations: no limitations HEENT: Head: Yes normal to inspection and Yes atraumatic Ears: hearing grossly normal bilaterally General nose exam: Normal external nose present Face and sinus: Yes normal facial exam Eyes: General: appearance normal, both eyes and all related structures EOM: EOMs intact bilaterally Neck: Neck: Yes normal visual inspection and Yes no meningeal signs Resp: Effort & Inspection: labored, no respiratory distress, no stridor and tachypneic Auscultation: rhonchi lower bilaterally and wheezes expiratory wheezes and throughout Cardio: Rate: regular rate and tachycardic Heart sounds: S1 normal heart sound present and S2 normal heart sound present GI: Inspection: Yes normal to inspection Palpation (GI): Soft to palpation, nontender, no guarding and not rigid : Other: Rectal tone WNL General: Yes no CVA tenderness Back/Spine/Pelvis: Back: no CVA tenderness Skin: Rashes: no rashes Wounds: no wounds Neuro: General: patient oriented x3, tone normal and no meningeal signs C ranial nerves: Yes CN's II-XII intact bilaterally Gait exam (Neuro): Normal gait present Extrem: General: Yes normal to inspection Course Course Course Narrative: -1015--leukocytosis of 13.6 > likely from recent prednisone use rather than infection. -lactic acid 2.5 likely from WOB. Magnesium 1.4 >> 2 g IV repletion ordered -troponin 16.8 > will obtain 3 hour repeat, chronically elevated XR lumbar spine 2-3V IMPRESSION: Degenerative changes observed particularly L4-L5. XR chest 1V IMPRESSION: No acute intrathoracic disease. Minimal right basilar atelectasis. > plan to admit for further management of COPD exacerbation Medications Administered Generic Name Dose Route Start Last Admin Trade Name Freq PRN Reason Stop Dose Admin Levalbuterol HCl 1.25 mg/ 0 mg 12/31/23 12:30 12/31/23 13:12 Ipratropium [place] 0.5 mg INHALE 5.5 dose Q6H [place] Administration Enoxaparin Sodium 40 mg 12/31/23 14:00 12/31/23 13:11 Enoxaparin Sodium 40 Mg/0.4 Ml Syringe SUBCUT 40 mg Q24H [place] Administration Lidocaine 1 patch 12/31/23 13:05 12/31/23 13:11 Lidocaine 4 % Patch Adh..Patch TRANSDERMA 1 patch DAILY [place] Administration Protocol Discontinued Medications Generic Name Dose Route Start Last Admin Trade Name Brian PRN Reason Stop Dose Admin Albuterol Sulfate 5 mg/ 0 mg 12/31/23 08:19 12/31/23 08:26 Albuterol/Ipratropium 3 ml INHALE 12/31/23 08:20 1 each ONCE ONE Administration Cyclobenzaprine HCl 5 mg 12/31/23 08:15 12/31/23 08:21 Cyclobenzaprine Hcl 5 Mg Tablet PO 12/31/23 08:16 5 mg ONCE ONE Administration Sodium Chloride 500 mls @ 999 mls/hr 12/31/23 08:15 12/31/23 09:03 Ns IV 12/31/23 08:45 Infused .Q31M [place] Infusion Cefepime HCl 2 gm/ Sodium 50 mls @ 100 mls/hr 12/31/23 08:10 12/31/23 09:03 Chloride IV 12/31/23 08:39 Infused ONCE ONE Infusion Magnesium Sulfate 2 gm in 50 mls @ 25 mls/hr 12/31/23 08:51 12/31/23 10:44 Magnesium Sulfate/H2o IV 12/31/23 10:50 Infused ONCE ONE Infusion Methylprednisolone Sodium Succinate 125 mg 12/31/23 08:02 12/31/23 08:22 Methylprednisolone Sod Succ 125 Mg/2 Ml Vial IVPUSH 12/31/23 08:03 125 mg ONCE ONE Administration Medical Decision Making Medical Decision Making MDM Narrative: 53-year-old female with a past medical history of COPD, active smoker, diabetes, obesity, GERD, Bustos's esophagus, OA, constipation, HENRY noncompliant with CPAP, cocaine use, recently admitted to our facility for acute exacerbation of COPD discharged on 12/18/2023 with p.o. prednisone and Levaquin, presenting back to the ED via EMS complaining of SOB, CP and right-sided low back pain radiating down RLE x yesterday. On exam tachypneic, tachycardic, satting 96% on 3 L NC, desats to 78% when sleeping on room air. Lungs with diffuse expiratory wheeze and rhonchi. Concern for COPD exacerbation and acute on chronic sciatica. Lower suspicion for acute pneumonia, ACS/PE, cauda equina/cord compression, dissection Plan: EKG, labs, CXR, lumbar x-ray, ED bronchodilator protocol, IV Solu-Medrol, empiric IV cefepime, anticipate admission Low suspicion for severe sepsis at this time, tachycardia/ tachypnea likely from chronic disease/nebs Please refer to course for remaining clinical decision making, interpretation of labs/imaging results, and discussions with consultants and/or family members. Differential Diagnosis Differential Diagnoses: The differential diagnosis associated with the presentation includes As above Admission/Observation Consideration of admission/observation: Escalation of care including admission/observation considered Lab Data MDM Lab Attestation statement: I reviewed the patient's lab results. 12/31/23 08:06 12/31/23 08:06 Labs: Lab Results 12/31/23 12/31/23 12/31/23 Range/Units 08:06 10:30 11:23 WBC 13.6 H (4.8-10.8) X10*3/uL RBC 5.33 (4.20-5.50) X10*6/uL Hgb 13.6 (12.0-16.0) g/dl Hct 44.0 (37.0-47.0) % MCV 82.6 (80.0-98.0) fL MCH 25.5 L (27.0-33.0) pg MCHC 30.9 L (31.0-35.0) g/dl RDW 18.2 H (11.0-16.0) % Plt Count 430 H (160-400) X10*3/uL MPV 9.2 L (9.4-12.3) fL Immature Gran % (Auto) 0.4 (0.0-0.4) % Neut % (Auto) 66.6 (45-73) % Lymph % (Auto) 23.6 (20-40) % [place] % (Auto) 7.9 (2-11) % Eos % (Auto) 1.2 (0-4) % Baso % (Auto) 0.3 (0-2) % Lymph # (Auto) 3.2 (1.2-4.9) X10*3/uL [place] # (Auto) 1.1 (0.1-1.2) X10*3/uL Eos # (Auto) 0.2 (0.0-0.4) X10*3/uL Baso # (Auto) 0.0 (0.0-0.2) X10*3/uL Abs Immat Gran (auto) 0.05 H (0.00-0.03) X10*3/uL Absolute Neuts (auto) 9.0 H (2.0-8.3) x10*3/uL Absolute Nucleated RBC 0.000 (0.0-0.012) X10*3/uL Nucleated RBC % (auto) 0.0 (0.0-0.2) /100WBC PT 12.2 (11.1-13.3) SEC INR 1.0 (0.9-1.1) VBG pH 7.40 (7.32-7.43) VBG pCO2 43 mmHg VBG pO2 133 mmHg VBG HCO3 27 H (22-26) mmol/L VBG O2 Saturation 99.0 % VBG Base Excess 2.1 mmol/L Sodium 141 (135-145) mmol/L Potassium 3.9 (3.3-5.1) mmol/L Chloride 100 (96-108) mmol/L Carbon Dioxide 28 (22-29) mmol/L Anion Gap 17 (12-20) BUN 13 (9-16) mg/dL Creatinine 0.82 (0.5-1.4) mg/dL Estim Creat Clear Calc 71.1 Estimated GFR > 60 Random Glucose 151 H (60-115) mg/dL Lactic Acid 2.5 H* (0.5-2.0) mmol/L Lactic Acid F/U @ 2Hr 1.3 (0.5-2.0) mmol/L Calcium 9.8 (8.4-10.2) mg/dL Magnesium 1.4 L* (1.6-2.6) mg/dL Total Bilirubin 0.4 (0.0-1.0) mg/dL Direct Bilirubin 0.1 (0.0-0.5) mg/dL AST 11 (5-31) U/L ALT 14 (0-31) U/L Alkaline Phosphatase 79 (39-117) U/L Troponin I High Sens 16.8 16.1 (<3.5-17.0) ng/L B-Natriuretic Peptide 176 H (<100) pg/mL Total Protein 6.9 (6.5-8.0) g/dL Albumin 3.9 (3.5-5.0) g/dL Influenza Type A (PCR) NEGATIVE (Negative) Influenza Type B (PCR) NEGATIVE (Negative) RSV RNA Qual (PCR) NEGATIVE (Negative) SARS-CoV-2 RNA (RT-PCR) NEGATIVE (Negative) Radiology Impression Discussion of test interpretation with radiology: I have reviewed the radiologist's reading. Independent Historian Clinical information obtained from an independent historian. History obtained from or confirmed by: EMS External Record Review External record reviewed: Inpatient record, Office record, Outpatient record, Prior outpatient labs, Prior outpatient radiology, Primary care record and Outside ED record Tests considered The following testing was considered but not selected: As above Chronic Conditions Patient?s care impacted by: Diabetes and Hypertension Social Determinants Patient?s care significantly limited by Social Determinants of Health including: Problems related to primary support group Critical Care Time Critical Care Time Critical Care Time: Yes Total Critical Care Time: 60 Attestation: I have personally provided critical care time exclusive of time spent on separately billable procedures. Time includes review of lab data, radiology results, discussion with consultants, and monitoring for potential decompensation. Intervention performed as documented. Discharge Plan Discharge Clinical Impression: Acute exacerbation of chronic obstructive airways disease, Sciatica Patient Disposition: Admitted As Inpatient
[2023-12-31 10:11] LABS: Reflex Lactate? Lactic Acid Added
[2023-12-31 11:05] LABS: ~Lactic Acid-LAB USE ONLY 1.3 mmol/L (0.5-2.0)
[2023-12-31 11:18] LABS: Troponin-I High Sensitivity 16.1 ng/L (<3.5-17.0)
[2023-12-31 11:30] LABS: Venous Blood Gas Refer to POC result
[2023-12-31 11:30] LABS: VBG Base Excess 2.1 mmol/L; VBG HCO3 27 mmol/L (22-26); VBG pCO2 43 mmHg; VBG pO2 133 mmHg
--- NOTE | 2023-12-31 12:10 | P.HPHOSP_ITS ---
History of Present Illness Date of Service: 12/31/23 Attending physician on admission: Burt Rodríguez Chief Complaint: sob 53 year old female with history of COPD, active smoker, history of diabetes, obesity, GERD, Bustos's esophagus, osteoarthritis, constipation, carpal tunnel syndrome, HENRY, noncompliant with CPAP, history of cocaine use presented to the ED earlier today for evaluation of shortness of breath, pleuritic chest pain ongoing for 3 days. She is also complaining of right-sided low back pain radiating into the right lower extremity that started yesterday. Denies any injury. Denies any bowel/bladder dysfunction, saddle anesthesia but does endorse paresthesias and weakness of the right lower extremity. Of note, was recently admitted to our facility for COPD exacerbation with discharge on 12/17 and reports completing prednisone and p.o. Levaquin as prescribed. She has not home O2 dependent. Since arrival, has been tachycardic to 111, tachypneic. She was noted to be 78% on room air on arrival and was placed on 3 L via nasal cannula. However continued falling asleep, removing oxygen and was ultimately placed on CPAP with improvement in oximetry to 93-95%. VBG was requested which is reassuring with pCO2 of 43, pH 7.40. Hematology studies show a leukocytosis of 13.6. Renal function and electrolyte levels normal, except for magnesium 1.4. Initial lactic acid 2.5, repeat 1.3. BNP elevated at 176. Troponins flat. Chest x-ray shows right basilar atelectasis but otherwise negative for any acute cardiopulmonary abnormality. X-ray lumbar spine shows degenerative changes most prominent at L4-L5. In the ED, has received DuoNeb, cyclobenzaprine, IV magnesium, cefepime, IV fluids, and methylprednisolone. [facility] Medical History COPD (chronic obstructive pulmonary disease) Diabetes mellitus COPD exacerbation Sleep apnea Crack cocaine use Hyperkalemia Acute exacerbation of COPD with asthma Metabolic acidosis Leukocytosis UTI (urinary tract infection) Acute respiratory failure with hypoxia Chest discomfort Chronic renal failure, stage 2 (mild) Acute and chronic respiratory failure with hypercapnia SOB (shortness of breath) Asthma Encounter for preoperative pulmonary examination Smoker Rotator cuff tendonitis GERD (gastroesophageal reflux disease) Chronic idiopathic constipation Bustos's esophagus Depression High triglycerides Gastroparesis Carpal tunnel syndrome of right wrist Nausea & vomiting Hernia Acute and chronic respiratory failure, unspecified whether with hypoxia or hypercapnia Respiratory failure HTN (hypertension) Obesity (BMI 30-39.9) Knee pain, bilateral Family History Father Heart disease HENRY (obstructive sleep apnea) Family history of breast cancer Mother Asthma Emphysema, unspecified Bronchitis Smoker Alcoholism Bone marrow disease Maternal Grandmother Diabetes Surgical History History of carpal tunnel release Hx of tubal ligation History of pubovaginal sling History of umbilical hernia repair Hx of section History of open reduction and internal fixation (ORIF) procedure Hx of cholecystectomy History of esophagogastroduodenoscopy (EGD) Social History Household Members: Other Household Members Other:: daughter Housing: House Are you a primary acute care physical therapist to a significant other at home: No Do you presently have visiting nurse or other home services: No Unable to assess alcohol history related to: Unknown Alcohol intake: former Comment: Sleeping Patient Tobacco Use Status: Current everyday Tobacco user Tobacco use type: Cigarette Cigarette Packs Per Day: 1 Cigarettes Per Day: 20.0 Years Smoked: 48 e-Cigarette/Vaping Use: Currently Using Second Hand Smoke Exposure: No Substance Use Type: Crack/Cocaine Advance Directives: Yes Advance Directives on File: Yes Advance Directives Date on File: 04/15/20 Do you have a plan to hurt others: No Plan Patient : No service: No Current occupational status: disabled 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 Meds Allergies Allergy/AdvReac Type Severity Reaction Status Date / Time doxycycline Allergy Severe Swelling Verified 12/31/23 07:53 varenicline [From CHANTIX] Allergy Severe ANAPHYLAXIS Verified 12/31/23 07:53 azithromycin Allergy Intermediate Rash Verified 12/31/23 07:53 barium sulfate Allergy Intermediate angioedema Verified 12/31/23 07:53 cetirizine Allergy Mild Rash Verified 12/31/23 07:53 famotidine Allergy Mild Rash Verified 12/31/23 07:53 linaclotide [Linzess] Allergy Mild Rash Verified 12/31/23 07:53 Home Medications ?Medication ?Instructions ?Recorded ?Confirmed ?Last Taken ?Type dexlansoprazole 60 mg 60 mg PO DAILY@0630 12/16/23 12/31/23 12/15/23 History capsule,biphase delayed release (Dexilant) Physical Exam 2 Vital Signs and Narrative: Vital Signs: Last Vital Signs Pulse 108 H 12/31/23 08:33 Resp 22 H 12/31/23 09:51 BP 99/63 12/31/23 07:50 Pulse Ox 78 L 12/31/23 08:28 O2 Del Method Room Air 12/31/23 08:28 Oxygen Flow Rate 3 12/31/23 07:50 BMI result Body Mass Index 35.8 Constitutional - Awake and Alert, No apparent distress Eyes - PERRLA, EOMI Cardiovascular - S1S2, RRR, No edema Respiratory - Normal lung expansion, Normal respiratory effort, No respiratory distress, CTA bilaterally, repeatedly falling asleep on exam with witnessed apneic/snoring episodes Extremities - no calf tenderness bilaterally, no swelling Musculoskeletal - Normal inspection, normal ROM. No midline low back ttp, right sided paraspinal ttp, positive right sided straight leg raises Skin - Warm/Dry Neurological - Alert & oriented x3, CN II-XII in tact, 5/5 strength BUE and BLE Psychological - Appropriate affect Results Labs 12/31/23 08:06 12/31/23 08:06 Labs: Laboratory Results - last 24 hr 12/31/23 12/31/23 12/31/23 08:06 10:30 11:23 MCV 82.6 MCH 25.5 L MCHC 30.9 L RDW 18.2 H Plt Count 430 H MPV 9.2 L Immature Gran % (Auto) 0.4 Neut % (Auto) 66.6 Lymph % (Auto) 23.6 [place] % (Auto) 7.9 Eos % (Auto) 1.2 Baso % (Auto) 0.3 Lymph # (Auto) 3.2 [place] # (Auto) 1.1 Eos # (Auto) 0.2 Baso # (Auto) 0.0 Abs Immat Gran (auto) 0.05 H Absolute Neuts (auto) 9.0 H Absolute Nucleated RBC 0.000 Nucleated RBC % (auto) 0.0 PT 12.2 INR 1.0 VBG pH 7.40 VBG pCO2 43 VBG pO2 133 VBG HCO3 27 H VBG O2 Saturation 99.0 VBG Base Excess 2.1 Anion Gap 17 Estim Creat Clear Calc 71.1 Estimated GFR > 60 Random Glucose 151 H Lactic Acid 2.5 H* Lactic Acid F/U @ 2Hr 1.3 Calcium 9.8 Magnesium 1.4 L* Total Bilirubin 0.4 Direct Bilirubin 0.1 AST 11 ALT 14 Alkaline Phosphatase 79 Troponin I High Sens 16.8 16.1 B-Natriuretic Peptide 176 H Total Protein 6.9 Albumin 3.9 Influenza Type A (PCR) NEGATIVE Influenza Type B (PCR) NEGATIVE RSV RNA Qual (PCR) NEGATIVE SARS-CoV-2 RNA (RT-PCR) NEGATIVE Imaging Radiologist's Impressions: Impressions Chest X-Ray 12/31/23 09:21 IMPRESSION: No acute intrathoracic disease. Minimal right basilar atelectasis. Lumbar Spine X-Ray 12/31/23 09:21 IMPRESSION: Degenerative changes observed particularly L4-L5. Assessment and Plan (1) Sciatica: Status: Acute (2) Acute hypoxemic respiratory failure: Status: Acute Plan 53 year old female with history of COPD, active smoker, history of diabetes, obesity, GERD, Bustos's esophagus, osteoarthritis, constipation, carpal tunnel syndrome, HENRY, noncompliant with CPAP, history of cocaine use admitted for further management of COPD exacerbation #Acute mild copd exacerbation acute hypoxemic respiratory failure likely complicated by HENRY -also possibly complicated by recent recurrent crack cocaine use, last use 2-3 days ago -vbg reassuring. CO2 baseline around 45-50 -CXR negative for any acute cardiopulmonary abnormality except minimal right basilar atelectasis -received 125mg IV methylprednisolone in the ER. No furhter wheezing on exam. Hold on further steriods at this time -duonebs q4h and prn -no change in quality or severity of chronic cough. No antibiotics indicated -continue maintenance inhalers, theophylline -CPAP p.r.n.. Encourage nightly use -check RPP # acute low back pain with radiculopathy -x-ray lumbar spine negative for acute osseous abnormality which shows chronic changes at L4-L5 -no alarm symptoms including bowel/bladder dysfunction, saddle anesthesia, paresthesias -Tylenol, lidocaine patches. Can continue gabapentin -if symptoms persist, can consider additional imaging -outpatient follow-up #SIRS criteria -leukocytosis likely r/t recent steroid use. Tachycardia due to albtuerol. Tachypnea r/t respiratory distress/hypoxia. No sepsis #Acute lactic acidosis -due to albuterol use. No severe sepsis # [id number] type 2 diabetes -POC glucose, diabetic diet -Humalog on sliding scale -hold p.o. antihyperglycemics # GERD/Bustos's esophagus -continue famotidine # hypertension -continue losartan, Lasix #constipation -continue lubiprostone # crack cocaine abuse -declines addiction medicine consult, cessation advised dvt prophylaxis- lovenox full code pt requires inpt stay at least 2 midnights due to copd exacerbation with acute hypoxemic respiratory failure initially requiring cpap and has been weaned to supplemental O2 via nc, scheduled nebulizers, and titration of supplemental O2 with close monitoring of respiratory status to monitor for and prevent decompensation Quality Stroke Does the patient have a stroke diagnosis?: No VTE Prior VTE?: No VTE Risk Level:: Medical - moderate - high VTE Device Contraindication: Treatment Not Indicated VTE Drug Contraindication: N/A - Med Ordered
[2023-12-31] MEDS: Lidocaine 4 % Patch ADH..PATCH 1 PATCH TRANSDERMA (13:11)
[2023-12-31] MEDS: Enoxaparin Sodium 40 MG/0.4 ML SYRINGE SUBCUT (13:11)
[2023-12-31] MEDS: levalbuterol HCL 1.25 MG, Ipratropium Bromide 0.5 MG INHALE ×2 (13:12→18:47)
--- NOTE | 2023-12-31 13:13 | PHA.MEDREC ---
Pharmacy Consult ? Medication Reconciliation Pharmacy has completed the medication reconciliation. Spoke to patients daughter to confirm med list. Daughter states patient is no longer on Jardiance 10 mg daily, Codine 10 mg Guaifenesin 100 mg/ml 10 ml q4-6 h prn. Daughter also stated her mom was put back on Prednisone however she doesn't know the dose. Claims says on 12-24-23 was Prednissone 20 mg for qt of 10 for 5 days supp.
--- NOTE | 2023-12-31 13:48 | PC.NURSE ---
patient resting on stretcher, loudly snoring, continues to take nasal cannula off and desat. admitting aware of patient condition, patient to remain off CPAP at this time
[2023-12-31 15:29] LABS: Adenovirus PCR Not Detected (Not Detect.); Bordetella parapertussis PCR Not Detected (Not Detect.); Bordetella pertussis PCR Not Detected (Not Detect.); Chlamydia pneumoniae PCR Not Detected (Not Detect.); Coronavirus 229E PCR Not Detected (Not Detect.); Coronavirus HKU1 PCR Not Detected (Not Detect.); Coronavirus NL63 PCR Not Detected (Not Detect.); Coronavirus OC43 PCR Not Detected (Not Detect.); Human metapneumovirus PCR Not Detected (Not Detect.); Influenza A PCR Not Detected (Not Detect.); Influenza B PCR Not Detected (Not Detect.); Mycoplasma pneumoniae PCR Not Detected (Not Detect.); Parainfluenza 1 PCR Not Detected (Not Detect.); Parainfluenza 2 PCR Not Detected (Not Detect.); Parainfluenza 3 PCR Not Detected (Not Detect.); Parainfluenza 4 PCR Not Detected (Not Detect.); RSV PCR Not Detected (Not Detect.); Rhino/Enterovirus PCR Not Detected (Not Detect.)
[2023-12-31 15:40] LABS: SARS-CoV-2 PCR Not Detected (Not Detect.)
[2023-12-31 16:25] LABS: Glucose, Whole Blood 221 mg/dL (60-115)
[2023-12-31] MEDS: Gabapentin 300 MG CAPSULE 600 MG PO ×2 (17:15→21:32)
[2023-12-31] MEDS: 0.9 % Sodium Chloride Flush 3 ML SYRINGE IVFLUSH ×2 (17:16→23:18)
[2023-12-31] MEDS: 0.9 % Sodium Chloride 1,000 ML 100 ML IVCONT (18:39)
[2023-12-31 21:11] LABS: Glucose, Whole Blood 130 mg/dL (60-115)
[2023-12-31] MEDS: Famotidine 20 MG TABLET 10 MG PO (21:32)
[2023-12-31] MEDS: Calcium + Vitamin D 250 MG TABLET 500 MG PO (21:32)
[2023-12-31] MEDS: Theophylline Anhydrous ER 400 MG TAB.ER.24H PO (21:32)
[2023-12-31] MEDS: Acetaminophen 325 MG TABLET 650 MG PO (21:46)
[2024-01-01] VITALS (8 sets, daily range): BP systolic 121–156; BP diastolic 64–76; PULSE 79–101; RESP 12–18; TEMP 36–36.6; O2SAT 90–96; BMI 35.9
[2024-01-01] MEDS: levalbuterol HCL 1.25 MG, Ipratropium Bromide 0.5 MG INHALE ×3 (00:21→13:10)
[2024-01-01] MEDS: 0.9 % Sodium Chloride 1,000 ML 100 ML IVCONT (05:06)
[2024-01-01 06:48] LABS: MANUAL DIFF FLAG NO
[2024-01-01 07:01] LABS: Basophils Percent Auto 0.3 % (0-2); Eosinophils Absolute Auto 0.1 X10*3/uL (0.0-0.4); Eosinophils Percent Auto 0.6 % (0-4); Hematocrit 39.5 % (37.0-47.0); Hemoglobin 12.1 g/dl (12.0-16.0); Imm Gran Abs Auto 0.02 X10*3/uL (0.00-0.03); Imm Gran Pct Auto 0.2 % (0.0-0.4); Lymphocytes Absolute Auto 3.5 X10*3/uL (1.2-4.9); Mean Corpuscular HGB Conc 30.6 g/dl (31.0-35.0); Mean Corpuscular Hemoglobin 25.6 pg (27.0-33.0); Mean Corpuscular Volume 83.5 fL (80.0-98.0); Mean Platelet Volume 9.4 fL (9.4-12.3); Monocytes Percent Auto 8.5 % (2-11); Neutrophils Percent Auto 60.4 % (45-73); Platelet Count 398 X10*3/uL (160-400); Red Blood Count 4.73 X10*6/uL (4.20-5.50); Red Cell Distribution Width 17.6 % (11.0-16.0); White Blood Count 11.6 X10*3/uL (4.8-10.8)
[2024-01-01 07:12] LABS: Glucose, Whole Blood 104 mg/dL (60-115)
[2024-01-01 07:13] LABS: Anion Gap 12 (12-20); Blood Urea Nitrogen 16 mg/dL (9-16); Calcium 9.8 mg/dL (8.4-10.2); Carbon Dioxide 31 mmol/L (22-29); Chloride 103 mmol/L (96-108); Creatinine Clr Calc Pharmacy 71.1; Estimated Glomerular Filt Rate > 60; Glucose Random 107 mg/dL (60-115); Potassium 3.6 mmol/L (3.3-5.1); Sodium 142 mmol/L (135-145)
[2024-01-01] MEDS: TiZANidine HCL 4 MG TABLET PO (08:43)
[2024-01-01] MEDS: Calcium + Vitamin D 250 MG TABLET 500 MG PO (08:43)
[2024-01-01] MEDS: methylPREDNISolone Sod Succ 40 MG/ML VIAL IVPUSH (08:44)
[2024-01-01] MEDS: Aspirin Enteric Coated 81 MG TABLET.DR PO (08:44)
[2024-01-01] MEDS: Losartan Potassium 50 MG TABLET PO (08:44)
[2024-01-01] MEDS: Sertraline HCL 100 MG TABLET PO (08:44)
[2024-01-01] MEDS: Omeprazole 40 MG CAPSULE.DR PO (08:44)
[2024-01-01] MEDS: Furosemide 20 MG TABLET PO (08:44)
[2024-01-01] MEDS: Gabapentin 100 MG CAPSULE 200 MG PO ×2 (08:44→15:41)
[2024-01-01] MEDS: Theophylline Anhydrous ER 400 MG TAB.ER.24H PO (08:44)
[2024-01-01] MEDS: Lidocaine 4 % Patch ADH..PATCH 1 PATCH TRANSDERMA (08:45)
[2024-01-01] MEDS: Nicotine 14 MG PATCH.TD24 TRANSDERMA (09:50)
--- NOTE | 2024-01-01 11:06 | P.PNIM_ITS ---
Subjective Subjective Date of Service: 01/01/24 Interval History: seen and evaluated this morning feels much better this morning tolerating cpap overnight no other events reported Review of Systems Review of Systems: Yes all other systems are reviewed and are negative Physical Exam 2 Vital Signs: Vital Signs: Last Vital Signs Temp 98 F 01/01/24 07:57 Pulse 101 H 01/01/24 08:11 Resp 18 01/01/24 08:11 BP 156/76 H 01/01/24 07:57 Pulse Ox 92 01/01/24 07:57 O2 Del Method Room Air 01/01/24 07:57 O2 Flow Rate 3 12/31/23 23:14 Oxygen Flow Rate 3 12/31/23 07:50 BMI result Body Mass Index 35.9 Const: Other: Constitutional : Awake, interactive, not in distress Neck : Normal inspection, Supple Cardiovascular : RRR, no JVP, no lower extremity edema Respiratory : fairly decreased bilateral air entry, no crackles, scattered expiratory wheezes Gastrointestinal: soft, lax, Normal bowel sounds, Non tender Skin : Warm, Dry Neurological : Alert & oriented x3, No focal deficit Objective Data Active Medications Acetaminophen (Acetaminophen 325 Mg Tablet) 650 mg PO Q6H PRN PRN Reason: Pain, Mild (Pain Scale 1-3), fever or headache Last Admin: 12/31/23 21:46 Dose: 650 mg Documented By: ANN Albuterol Sulfate (Albuterol Sulfate (0.083%) 2.5 Mg/3 Ml Vial.Neb) 2.5 mg INHALE Q4H PRN PRN Reason: Wheezing Aspirin (Aspirin Enteric Coated 81 Mg Tablet.) 81 mg PO DAILY [facility] Last Admin: 01/01/24 08:44 Dose: 81 mg Documented By: PAZ Calcium Carbonate (Calcium Carbonate 750 Mg Tab.Chew) 750 mg PO Q4H PRN PRN Reason: Heartburn Calcium Carbonate/Cholecalciferol (Calcium + Vitamin D 250 Mg Tablet) 500 mg PO BID [facility] Last Admin: 01/01/24 08:43 Dose: 500 mg Documented By: PAZ Levalbuterol HCl 1.25 mg/ (Ipratropium Rugby 0.5 mg) 0 mg INHALE RQ4H WHILE AWAKE [facility] Last Admin: 01/01/24 08:08 Dose: 1 dose Documented By: REHANA Enoxaparin Sodium (Enoxaparin Sodium 40 Mg/0.4 Ml Syringe) 40 mg SUBCUT Q24H [facility] Last Admin: 12/31/23 13:11 Dose: 40 mg Documented By: RADHA Famotidine (Famotidine 20 Mg Tablet) 10 mg PO BEDTIME [facility] Last Admin: 12/31/23 21:32 Dose: 10 mg Documented By: MCMORRK Furosemide (Furosemide 20 Mg Tablet) 20 mg PO DAILY [facility]; Protocol Last Admin: 01/01/24 08:44 Dose: 20 mg Documented By: PAZ Gabapentin (Gabapentin 100 Mg Capsule) 200 mg PO TID [facility] Last Admin: 01/01/24 08:44 Dose: 200 mg Documented By: BEVEMA Glucose (Glucose Gel 15 Gm Gel..Gram.) 15 gm PO Q15M PRN; Protocol PRN Reason: per Hypoglycemia Standing Ord. Dextrose (D10) 250 mls @ 750 mls/hr IV Q15M PRN; Protocol PRN Reason: per Hypoglycemia Standing Ord. Insulin Human Lispro (Insulin Lispro 100 Unit/Ml 3 Ml Vial) 0 unit SUBCUT QIDACHS [facility]; Protocol Last Admin: 01/01/24 07:13 Dose: Not Given Documented By: PAZ Non-Admin Reason: No Insulin Coverage Lidocaine (Lidocaine 4 % Patch Adh..Patch) 1 patch TRANSDERMA DAILY [facility]; Protocol Last Admin: 01/01/24 08:45 Dose: 1 patch Documented By: COTEMA Losartan Potassium (Losartan Potassium 50 Mg Tablet) 50 mg PO DAILY [facility]; Protocol Last Admin: 01/01/24 08:44 Dose: 50 mg Documented By: BEVEMA Magnesium Hydroxide (Milk Of Magnesia 30 Ml Oral.Susp) 30 ml PO DAILY PRN PRN Reason: Constipation Melatonin (Melatonin 3 Mg Tablet) 6 mg PO BEDTIME PRN PRN Reason: Insomnia Methylprednisolone Sodium Succinate (Methylprednisolone Sod Succ 40 Mg/Ml Vial) 40 mg IVPUSH Q12H [facility] Last Admin: 01/01/24 08:44 Dose: 40 mg Documented By: COTEMA Nicotine (Nicotine 14 Mg Patch.Td24) 14 mg TRANSDERMA DAILY [facility] Last Admin: 01/01/24 09:50 Dose: 14 mg Documented By: COTEMA Omeprazole (Omeprazole 40 Mg Capsule.) 40 mg PO DAILY@0630 [facility] Last Admin: 01/01/24 08:44 Dose: 40 mg Documented By: PAZ Sertraline HCl (Sertraline Hcl 100 Mg Tablet) 100 mg PO DAILY [facility] Last Admin: 01/01/24 08:44 Dose: 100 mg Documented By: PAZ Sodium Chloride (0.9 % Sodium Chloride Flush 3 Ml Syringe) 3 ml IVFLUSH QSHIFT [facility] Last Admin: 01/01/24 07:14 Dose: Not Given Documented By: PAZ Non-Admin Reason: IV Running Theophylline (Theophylline Anhydrous Er 400 Mg Tab.Er.24h) 400 mg PO BID [facility] Last Admin: 01/01/24 08:44 Dose: 400 mg Documented By: PAZ Tizanidine HCl (Tizanidine Hcl 4 Mg Tablet) 4 mg PO Q8H PRN PRN Reason: muscle spasm Last Admin: 01/01/24 08:43 Dose: 4 mg Documented By: PAZ Labs 01/01/24 05:47 01/01/24 05:47 Labs: Laboratory Results - last 24 hr 12/31/23 12/31/23 12/31/23 10:30 11:23 13:09 MCV MCH MCHC RDW Plt Count MPV Immature Gran % (Auto) Neut % (Auto) Lymph % (Auto) Andrews % (Auto) Eos % (Auto) Baso % (Auto) Lymph # (Auto) Andrews # (Auto) Eos # (Auto) Baso # (Auto) Abs Immat Gran (auto) Absolute Neuts (auto) Absolute Nucleated RBC Nucleated RBC % (auto) VBG pH 7.40 VBG pCO2 43 VBG pO2 133 VBG HCO3 27 H VBG O2 Saturation 99.0 VBG Base Excess 2.1 Anion Gap Estim Creat Clear Calc Estimated GFR POC Glucose Random Glucose Calcium Troponin I High Sens 16.1 Respiratory Panel Keys See Note Adenovirus (Rapid PCR) Not Detected B.pert (TEM-PCR) Not Detected B.parapertussis DNA PCR Not Detected C. pneumoniae DNA (PCR) Not Detected Coronavirus OC43 (PCR) Not Detected Coronavirus HKU1 (PCR) Not Detected Coronavirus 229E (PCR) Not Detected Coronavirus NL63 (PCR) Not Detected Human Metapneumovir PCR Not Detected Influenza A (RT-PCR) Not Detected Influenza B (RT-PCR) Not Detected M. pneumoniae (PCR) Not Detected Parainfluenza 1 (PCR) Not Detected Parainfluenza 2 (PCR) Not Detected Parainfluenza 3 (PCR) Not Detected Parainfluenza 4 (PCR) Not Detected RSV (PCR) Not Detected Entero/Rhino (PCR) Not Detected SARS-CoV-2 RNA (RT-PCR) Not Detected 12/31/23 12/31/23 01/01/24 16:20 21:07 05:47 MCV 83.5 MCH 25.6 L MCHC 30.6 L RDW 17.6 H Plt Count 398 MPV 9.4 Immature Gran % (Auto) 0.2 Neut % (Auto) 60.4 Lymph % (Auto) 30.0 Andrews % (Auto) 8.5 Eos % (Auto) 0.6 Baso % (Auto) 0.3 Lymph # (Auto) 3.5 Andrews # (Auto) 1.0 Eos # (Auto) 0.1 Baso # (Auto) 0.0 Abs Immat Gran (auto) 0.02 Absolute Neuts (auto) 7.0 Absolute Nucleated RBC 0.000 Nucleated RBC % (auto) 0.0 VBG pH VBG pCO2 VBG pO2 VBG HCO3 VBG O2 Saturation VBG Base Excess Anion Gap 12 Estim Creat Clear Calc 71.1 Estimated GFR > 60 POC Glucose 221 H 130 H Random Glucose 107 Calcium 9.8 Troponin I High Sens Respiratory Panel Keys Adenovirus (Rapid PCR) B.pert (TEM-PCR) B.parapertussis DNA PCR C. pneumoniae DNA (PCR) Coronavirus OC43 (PCR) Coronavirus HKU1 (PCR) Coronavirus 229E (PCR) Coronavirus NL63 (PCR) Human Metapneumovir PCR Influenza A (RT-PCR) Influenza B (RT-PCR) M. pneumoniae (PCR) Parainfluenza 1 (PCR) Parainfluenza 2 (PCR) Parainfluenza 3 (PCR) Parainfluenza 4 (PCR) RSV (PCR) Entero/Rhino (PCR) SARS-CoV-2 RNA (RT-PCR) 01/01/24 07:09 MCV MCH MCHC RDW Plt Count MPV Immature Gran % (Auto) Neut % (Auto) Lymph % (Auto) Andrews % (Auto) Eos % (Auto) Baso % (Auto) Lymph # (Auto) Andrews # (Auto) Eos # (Auto) Baso # (Auto) Abs Immat Gran (auto) Absolute Neuts (auto) Absolute Nucleated RBC Nucleated RBC % (auto) VBG pH VBG pCO2 VBG pO2 VBG HCO3 VBG O2 Saturation VBG Base Excess Anion Gap Estim Creat Clear Calc Estimated GFR POC Glucose 104 Random Glucose Calcium Troponin I High Sens Respiratory Panel Keys Adenovirus (Rapid PCR) B.pert (TEM-PCR) B.parapertussis DNA PCR C. pneumoniae DNA (PCR) Coronavirus OC43 (PCR) Coronavirus HKU1 (PCR) Coronavirus 229E (PCR) Coronavirus NL63 (PCR) Human Metapneumovir PCR Influenza A (RT-PCR) Influenza B (RT-PCR) M. pneumoniae (PCR) Parainfluenza 1 (PCR) Parainfluenza 2 (PCR) Parainfluenza 3 (PCR) Parainfluenza 4 (PCR) RSV (PCR) Entero/Rhino (PCR) SARS-CoV-2 RNA (RT-PCR) Microbiology Microbiology Results: Microbiology 12/31/23 08:13 Blood Culture - Preliminary Blood - Subclavian No growth after 24 hours. Assessment and Plan (1) Acute hypoxemic respiratory failure: Status: Acute (2) Acute exacerbation of chronic obstructive airways disease: Status: Acute (3) COPD (chronic obstructive pulmonary disease): Status: Acute Plan 53 year old female with history of COPD, active smoker, history of diabetes, obesity, GERD, Bustos's esophagus, osteoarthritis, constipation, carpal tunnel syndrome, HENRY, noncompliant with CPAP, history of cocaine use admitted for further management of COPD exacerbation #Acute hypoxemic respiratory failure 2/2 COPD exacerbation with underlying HENRY not septic CXR showed right basilar atelectasis continue IV steroids change to Xopenex nebs Incentive spirometry Home inhalers CPAP bedtime and with naps # acute low back pain with radiculopathy x-ray lumbar spine negative for acute osseous abnormality Tylenol, lidocaine patches and gabapentin if symptoms persist, can consider additional imaging outpatient follow-up PT evaluation # [id number] type 2 diabetes POC glucose, diabetic diet Humalog on sliding scale hold p.o. antihyperglycemics # GERD/Bustos's esophagus continue famotidine # hypertension continue losartan, Lasix #constipation continue lubiprostone # crack cocaine abuse declines addiction medicine consult, cessation advised dvt prophylaxis lovenox The patient will need overnight hospital stay for copd exacerbation with acute hypoxemic respiratory failure for treatment with scheduled nebulizers, and titration of supplemental O2 with close monitoring of respiratory status to monitor for and prevent decompensation Quality Stroke Does the patient have a stroke diagnosis?: No VTE Prior VTE?: No VTE Risk Level:: Medical - moderate - high VTE Device Contraindication: Treatment Not Indicated VTE Drug Contraindication: N/A - Med Ordered
--- NOTE | 2024-01-01 11:35 | MHC.CM.PN ---
PATIENT IN SHOWER AT TIME OF ASSESSMENT. CM TO RE-ATTEMPT
[2024-01-01 11:56] LABS: Glucose, Whole Blood 144 mg/dL (60-115)
--- NOTE | 2024-01-01 13:02 | MHC.CM.PN ---
PATIENT LIVES IN AN APT W/ HER ADULT DTR. AMBULATES W/ WALKER. OTHERWISE INDEPENDENT. PCP DALJIT HAINES CHIEF OF INTERNAL MEDICINE HCP ON FILE AND VERIFIED DP: PT NOT RECOMMENDING ANY SKILLED PT AT THIS TIME. HOME SELF CARE. WILL NEED SHUTTLE OR LYFT. CM WILL CONTINUE TO FOLLOW.
[2024-01-01] MEDS: Enoxaparin Sodium 40 MG/0.4 ML SYRINGE SUBCUT (15:41)
[2024-01-01] MEDS: 0.9 % Sodium Chloride Flush 3 ML SYRINGE IVFLUSH (15:41)
[2024-01-01 16:23] LABS: Glucose, Whole Blood 193 mg/dL (60-115)
--- NOTE | 2024-01-01 16:42 | PM.EVENT ---
Event Note Date of Service: 01/01/24 Event Note: called by RN as pt trying to leave the hospital despite my counseling the pt on the risks of respiratory failure from COPD, she adamantly refuses to stay in the hospital. she has decision-making capacity. she will sign out of the hospital AMA Time Spent With Patient Time: Total time managing care of this patient today ____ minutes.
--- NOTE | 2024-01-09 16:07 | P.DS_ITS ---
DS: Providers Provider Date of Service: 01/01/24 Date of admission: 12/31/23 12:18 Primary care physician: DOTTY Lazcano DS: Diagnosis Discharge Diagnosis (1) Acute hypoxemic respiratory failure: Status: Acute (2) Acute exacerbation of chronic obstructive airways disease: Status: Acute (3) COPD (chronic obstructive pulmonary disease): Status: Acute (4) Sciatica: Status: Acute DS: Summary Hospital Course Hospital Course: 53 year old female with history of COPD, active smoker, history of diabetes, obesity, GERD, Bustos's esophagus, osteoarthritis, constipation, carpal tunnel syndrome, HENRY, noncompliant with CPAP, history of cocaine use admitted for further management of COPD exacerbation #Acute hypoxemic respiratory failure 2/2 COPD exacerbation with underlying HENRY treated with IV steroids , nebulizers, spirometry and CPAP at bedtime. # Acute low back pain with radiculopathy with x-ray lumbar spine negative for acute osseous abnormality. placed on Tylenol, lidocaine patches and gabapentin. PT evaluation ordered. she did not finish treatment inpatient and decided to leave [facility]. Time Attestation Discharge Coordination Time (in mins): 34 Quality: Safe Use of Opioids Does Pt have an Active Cancer Diagnosis on the Problem List?: No Quality: Stroke Does the patient have a stroke diagnosis?: No Physical Exam Vital Signs: Vital Signs: Last Vital Signs Temp 97.4 F 01/01/24 15:56 Pulse 81 01/01/24 15:56 Resp 18 01/01/24 15:56 BP 121/64 01/01/24 15:56 Pulse Ox 96 01/01/24 15:56 O2 Del Method Nasal Cannula 01/01/24 15:56 O2 Flow Rate 2 01/01/24 15:56 Oxygen Flow Rate 3 12/31/23 07:50 BMI result Body Mass Index 35.9 Const: Other: ama DS: Data Data Completed and Pending Completed studies during hospitalization [Text1]: Procedures Assistance with Respiratory Ventilation, Less than 24 Consecutive Hours, Continuous Positive Airway Pressure (12/31/23) Insertion of Endotracheal Airway into Trachea, Via Natural or Artificial Opening (11/03/20) Insertion of Infusion Device into Superior Vena Cava, Percutaneous Approach (11/03/20) Respiratory Ventilation, Less than 24 Consecutive Hours (11/03/20) Discharge Plan Discharge Patient Disposition: Left Against Medical Advice Discharge Diagnosis: ama Referrals: Joe Hale, [employer]PECTOR- [Primary Care Provider] - 1 Week Discharge Medications: No Action (DME) lancets [FreeStyle Lancets] 28 gauge misc See Rx Instructions .ROUTE .MEDSUPPLY Qty: 100 1RF Rx Instructions: Use to check blood sugar daily or if symptomatic hypo/hypergylcemia (DME) 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 meter [FreeStyle Lite Meter] Kit See Rx Instructions .ROUTE .MEDSUPPLY Qty: 1 0RF Rx Instructions: Use to check blood sugar daily or if symptomatic for hypo/hyperglycemia (DME) FreeStyle Lite Strips Strip See Rx Instructions .ROUTE .MEDSUPPLY Qty: 100 1RF Rx Instructions: Use to check blood sugar daily or if symptomatic hypo/hypergylcemia theophylline 400 mg tablet extended release 24 hr 400 mg PO BID 90 Days Qty: 180 4RF famotidine [Heartburn Relief (famotidine)] 10 mg tablet 10 mg PO BEDTIME Qty: 90 0RF ipratropium bromide 0.02 % solution 2.5 ml inhalation Q6H PRN (Reason: for wheezing) 30 Days Qty: 187.5 6RF calcium carbonate-vitamin D3 500 mg-10 mcg (400 unit) tablet 1 tab PO BID 30 Days Qty: 60 6RF furosemide 20 mg tablet 20 mg PO DAILY Qty: 90 3RF glipizide 5 mg tablet 5 mg PO DAILY 90 Days Qty: 90 0RF losartan 50 mg tablet 50 mg PO DAILY Qty: 90 1RF sertraline 100 mg tablet 100 mg PO DAILY Qty: 90 0RF gabapentin 800 mg tablet 800 mg PO QID Qty: 120 0RF tizanidine 4 mg tablet 4 mg PO Q12H PRN (Reason: muscle spasm) 30 Days Qty: 60 0RF Rx Instructions: do not take concurrently with famotidine acetaminophen 650 mg tablet extended release 650 mg PO Q12H PRN (Reason: pain) 30 Days Qty: 60 0RF aspirin 81 mg tablet,delayed release (DR/EC) 81 mg PO DAILY 90 Days Qty: 90 1RF ibuprofen 800 mg tablet 800 mg PO BID PRN (Reason: pain) Qty: 60 0RF Rx Instructions: please use sparingly due to diabetes prednisone 20 mg tablet 40 mg PO DAILY Qty: 10 0RF albuterol sulfate 90 mcg/actuation HFA aerosol inhaler 2 puff inhalation QID Qty: 8.5 3RF dexlansoprazole [Dexilant] 60 mg capsule,biphase delayed releas 60 mg PO DAILY@0630 Discharge Orders: Discharge Order (Routine); Ordered 01/09/24 Ordered By: Niru Boyd Print Language: Chinese Care Plan Goals: . Health Concerns: . Plan of Treatment: . Assessment: . Discharge Date/Time: 01/01/24 16:53
== END 2024-01-01 16:53 | disposition left against medical advice (07) | DRG 140 ==
LOC: HO.ED 10:23 → HO.EDOVER 12:26 → HO.S3 21:45
PROVIDERS: Family Medicine; Physician Assistant; Admitting Provider Physician Assistant; Emergency Provider Emergency Medicine; PCP Nurse Practitioner Family; Visit Provider Student in an Organized Health Care Education/Training Program
DX: J44.1 Chronic obstructive pulmonary disease with (acute) exacerbation (principal); J96.01 Acute respiratory failure with hypoxia; G47.33 Obstructive sleep apnea (adult) (pediatric); E87.21 Acute metabolic acidosis; J98.11 Atelectasis; M54.50 Low back pain, unspecified; M54.16 Radiculopathy, lumbar region; K21.9 Gastro-esophageal reflux disease without esophagitis; I10 Essential (primary) hypertension; K59.00 Constipation, unspecified; K22.70 Barrett's esophagus without dysplasia; F14.10 Cocaine abuse, uncomplicated; F17.210 Nicotine dependence, cigarettes, uncomplicated; Z20.822 Contact with and (suspected) exposure to COVID-19; Z91.199 Patient's noncompliance with other medical treatment and regimen due to unspecified reason; Z71.6 Tobacco abuse counseling; Z79.84 Long term (current) use of oral hypoglycemic drugs; Z79.899 Other long term (current) drug therapy
CPT/HCPCS: 0241U; 36415; 71045; 72100; 80048; 80076; 82803; 82947; 83605; 83735; 83880; 84484; 85025; 85610; 87040; 87633; 93005; 94640; 94660; 99221; 99285; J0692; J1650; J2919; J3475

== ENCOUNTER → 2023-12-31 08:00 | Outpatient (BNV) | payer OTHER, SELFPAY | PROVIDERS: Admitting Provider Physician Assistant; Emergency Provider Emergency Medicine; PCP Nurse Practitioner Family; Visit Provider Internal Medicine | DX: R07.9 Chest pain, unspecified (principal) | CPT/HCPCS: 93010 ==

== ENCOUNTER → 2023-12-31 12:18 | Outpatient (BNV) | payer OTHER, SELFPAY | PROVIDERS: Admitting Provider Physician Assistant; Emergency Provider Emergency Medicine; PCP Nurse Practitioner Family; Visit Provider Physician Assistant | DX: J96.01 Acute respiratory failure with hypoxia (principal); J44.1 Chronic obstructive pulmonary disease with (acute) exacerbation; M54.30 Sciatica, unspecified side | CPT/HCPCS: 99223; 99232; 99239; 99499 ==

== ENCOUNTER 2024-01-13 23:58 | Inpatient (IN) | payer OTHER, SELFPAY ==
--- NOTE | ~2024-01-13 | XR_ITS ---
EXAMINATION: XR CHEST CLINICAL INFORMATION: Dyspnea. COMPARISON: Chest radiograph 12/31/2023. TECHNIQUE: Frontal view of the chest was obtained. FINDINGS: Stable prominence of the cardiomediastinal silhouette. No focal consolidation, pleural effusion or pneumothorax. Slightly increased interstitial markings. Chronic deformities of multiple left-sided ribs. No acute osseous findings. XR/XR chest 1V IMPRESSION: Slightly increased interstitial markings which could be seen acutely in the setting of an infectious/inflammatory process of the small airways.
[2024-01-14] VITALS (16 sets, daily range): BP systolic 115–166; BP diastolic 68–92; PULSE 85–114; RESP 13–24; TEMP 36.2–36.8; O2SAT 90–98; BMI 34.3; BMI 36.8
--- NOTE | 2024-01-14 | ECG_ITS ---
Test Reason : sob Blood Pressure : / mmHG Vent. Rate : 091 BPM Atrial Rate : 091 BPM P-R Int : 126 ms QRS Dur : 094 ms QT Int : 376 ms P-R-T Axes : 033 125 063 degrees QTc Int : 462 ms Sinus rhythm with Premature atrial complexes Left posterior fascicular block Abnormal ECG When compared with ECG of 14-JAN-2024 00:17, Premature atrial complexes are now Present Referred By: Millie Reid Electronically Signed By:PAUL VARGAS MD
--- NOTE | 2024-01-14 00:21 | ECG_ITS ---
Test Reason : SOB Blood Pressure : / mmHG Vent. Rate : 108 BPM Atrial Rate : 108 BPM P-R Int : 128 ms QRS Dur : 070 ms QT Int : 308 ms P-R-T Axes : 083 142 077 degrees QTc Int : 412 ms Sinus tachycardia Right axis deviation Pulmonary disease pattern Abnormal ECG When compared with ECG of 31-DEC-2023 08:13, Premature atrial complexes are no longer Present Criteria for Inferior infarct are no longer Present ST now depressed in Anterior leads Nonspecific T wave abnormality no longer evident in Inferior leads T wave inversion no longer evident in Anterior leads Referred By: Millie Reid Electronically Signed By:PAUL VARGAS MD
[2024-01-14] MEDS: Albuterol Sulfate 7.5 MG, Albuterol/Iprat 2.5/0.5MG 3 ML 3 ML INHALE (00:35)
[2024-01-14] MEDS: methylPREDNISolone Sod Succ 125 MG/2 ML VIAL 60 MG IVPUSH (00:42)
[2024-01-14] MEDS: Furosemide 20 MG/2 ML VIAL IVPUSH (00:43)
--- NOTE | 2024-01-14 00:44 | ED.SOB ---
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 comes here for increased shortness of breath for last 2 days feels her apartment was hot and humid no air conditioning Related Data Home Medications ?Medication ?Instructions ?Recorded ?Confirmed dexlansoprazole 60 mg 60 mg PO DAILY@0630 12/16/23 12/31/23 capsule,biphase delayed release (Dexilant) Previous Rx's ?Medication ?Instructions ?Recorded lancets 28 gauge (FreeStyle #100 ea 01/20/21 Lancets) 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 meter (FreeStyle #1 ea 03/01/22 Lite Meter kit) blood sugar diagnostic (FreeStyle #100 ea 09/16/22 Lite Strips) theophylline 400 mg 400 mg PO BID 90 days #180 tabs 12/24/22 tablet,extended release 24 hr albuterol sulfate 90 mcg/actuation 2 puff inhalation QID #8.5 grams 06/03/23 aerosol inhaler famotidine 10 mg tablet (Heartburn 10 mg PO BEDTIME #90 tabs 07/22/23 Relief (famotidine)) calcium carbonate 500 mg-vitamin 1 tab PO BID 30 days #60 tabs 12/09/23 D3 10 mcg (400 unit) tablet furosemide 20 mg tablet 20 mg PO DAILY #90 tabs 12/09/23 glipizide 5 mg tablet 5 mg PO DAILY 90 days #90 tabs 12/09/23 ipratropium bromide 0.02 % 2.5 ml inhalation Q6H PRN for 12/09/23 solution for inhalation wheezing 30 days #187.5 mL losartan 50 mg tablet 50 mg PO DAILY #90 tabs 12/09/23 sertraline 100 mg tablet 100 mg PO DAILY #90 tabs 12/09/23 gabapentin 800 mg tablet 800 mg PO QID #120 tabs 12/10/23 acetaminophen 650 mg 650 mg PO Q12H PRN pain 30 days 01/01/24 tablet,extended release #60 tabs aspirin 81 mg tablet,delayed 81 mg PO DAILY 90 days #90 tabs 01/01/24 release ibuprofen 800 mg tablet 800 mg PO BID PRN pain #60 tabs 01/01/24 tizanidine 4 mg tablet 4 mg PO Q12H PRN muscle spasm 30 01/01/24 days #60 tabs prednisone 20 mg tablet 40 mg (2 x 20 mg) PO DAILY #10 tabs 01/03/24 Allergies Allergy/AdvReac Type Severity Reaction Status Date / Time doxycycline Allergy Severe Swelling Verified 01/14/24 00:13 varenicline [From CHANTIX] Allergy Severe ANAPHYLAXIS Verified 01/14/24 00:13 azithromycin Allergy Intermediate Rash Verified 01/14/24 00:13 barium sulfate Allergy Intermediate angioedema Verified 01/14/24 00:13 cetirizine Allergy Mild Rash Verified 01/14/24 00:13 famotidine Allergy Mild Rash Verified 01/14/24 00:13 linaclotide [Linzess] Allergy Mild Rash Verified 01/14/24 00:13 Review of Systems Review of Systems: Yes all other systems are reviewed and are negative PMFSH Past Medical History Medical History COPD (chronic obstructive pulmonary disease) Diabetes mellitus COPD exacerbation Sleep apnea Crack cocaine use Hyperkalemia Acute exacerbation of COPD with asthma Metabolic acidosis Leukocytosis UTI (urinary tract infection) Acute respiratory failure with hypoxia Chest discomfort Chronic renal failure, stage 2 (mild) Acute and chronic respiratory failure with hypercapnia SOB (shortness of breath) Asthma Encounter for preoperative pulmonary examination Smoker Rotator cuff tendonitis GERD (gastroesophageal reflux disease) Chronic idiopathic constipation Bustos's esophagus Depression High triglycerides Gastroparesis Carpal tunnel syndrome of right wrist Nausea & vomiting Hernia Acute and chronic respiratory failure, unspecified whether with hypoxia or hypercapnia Respiratory failure HTN (hypertension) Obesity (BMI 30-39.9) Knee pain, bilateral Surgical History History of carpal tunnel release Hx of tubal ligation History of pubovaginal sling History of umbilical hernia repair Hx of section History of open reduction and internal fixation (ORIF) procedure Hx of cholecystectomy History of esophagogastroduodenoscopy (EGD) Family History Family History Father Heart disease HENRY (obstructive sleep apnea) Family history of breast cancer Mother Asthma Emphysema, unspecified Bronchitis Smoker Alcoholism Bone marrow disease Maternal Grandmother Diabetes Social History Social History Household Members: Family Household Members Other:: daughter Housing: House Are you a primary pet care assistant to a significant other at home: No Do you presently have visiting nurse or other home services: No Unable to assess alcohol history related to: Unknown Alcohol intake: former Comment: Sleeping Patient Tobacco Use Status: Current everyday Tobacco user Tobacco use type: Cigarette Cigarette Packs Per Day: 0.5 Cigarettes Per Day: 10.0 Years Smoked: 48 Smoked in Last 30 Days: Yes e-Cigarette/Vaping Use: Never Used Second Hand Smoke Exposure: No Use of substances other than those prescribed or required for medical reasons: No Substance Use Type: Crack/Cocaine Advance Directives: Yes Advance Directives on File: Yes Advance Directives Date on File: 04/15/20 Do you have a plan to hurt others: No Plan service: No Current occupational status: disabled 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 Oriented X3. In moderate respiratory distress on BiPAP 15/5 21% saturating 92% Eyes: PERRLA, No Nystagmus ENT: Pharynx normal. Oral Mucosa moist Neck: Normal inspection. Neck supple. CVS: Normal heart rate and rhythm. Pulses normal. Respiratory: Moderate respiratory distress. Equal air entry bilateral, bilateral wheezing decreased air entry bilaterally Abdomen: Soft and nontender. Bowel sounds are present, no mass palpable, no CVA tenderness Skin: Skin warm and dry. Normal skin color. Normal skin turgor. Extremities: No lower extremity edema. No calf tenderness Neuro: Oriented X 3. No motor deficit. Medications Administered Generic Name Dose Route Start Last Admin Trade Name Freq PRN Reason Stop Dose Admin Azithromycin 500 mg/ Sodium 250 mls @ 125 mls/hr 01/14/24 05:00 01/14/24 05:06 Chloride IV 125 mls/hr Q24H [place] Administration Nicotine 21 mg 01/14/24 03:30 01/14/24 04:41 Nicotine 21 Mg Patch.Td24 TRANSDERMA 21 mg DAILY [place] Administration Discontinued Medications Generic Name Dose Route Start Last Admin Trade Name Freq PRN Reason Stop Dose Admin Albuterol Sulfate 5 mg/ 7.5 mg 01/14/24 00:47 01/14/24 01:01 Albuterol Sulfate 2.5 mg INHALE 01/14/24 00:48 7.5 mg ONCE ONE Administration Albuterol Sulfate 7.5 mg/ 0 mg 01/14/24 00:34 01/14/24 00:35 Albuterol/Ipratropium 3 ml INHALE 01/14/24 00:35 10 each ONCE ONE Administration Furosemide 20 mg 01/14/24 00:21 01/14/24 00:43 Furosemide 20 Mg/2 Ml Vial IVPUSH 01/14/24 00:22 20 mg ONCE ONE Administration Protocol Ceftriaxone Sodium 1 gm/ 50 mls @ 100 mls/hr 01/14/24 00:21 01/14/24 02:11 Sodium Chloride IV 01/14/24 00:50 Infused ONCE ONE Infusion Sodium Chloride 500 mls @ 500 mls/hr 01/14/24 03:30 01/14/24 05:53 Ns IV 01/14/24 04:29 Infused .Q1H [place] Infusion Methylprednisolone Sodium Succinate 60 mg 01/14/24 00:21 01/14/24 00:42 Methylprednisolone Sod Succ 125 Mg/2 Ml Vial IVPUSH 01/14/24 00:22 60 mg ONCE ONE Administration Medical Decision Making Medical Decision Making [facility] Narrative: Patient is smoker severe HENRY and COPD on CPAP comes here for increased shortness of breath requiring BiPAP on arrival patient received steroids and nebulizer treatment no signs of active infection had slightly elevated lactic acid secondary to hypoxemia leukocytosis secondary to steroid use which is chronic patient is afebrile Differential Diagnosis Differential Diagnoses: The differential diagnosis associated with the presentation includes COPD/sleep apnea/respiratory failure/pneumonia/CHF Admission/Observation Consideration of admission/observation: Escalation of care including admission/observation considered Consult Healthcare Provider Management of the patient was discussed with: Hospitalist Lab Data MDM Lab Attestation statement: I reviewed the patient's lab results. 01/14/24 04:40 01/14/24 04:40 Labs: Lab Results 01/14/24 01/14/24 01/14/24 Range/Units 01:03 01:12 01:13 WBC 18.4 H (4.8-10.8) X10*3/uL RBC 5.35 (4.20-5.50) X10*6/uL Hgb 13.4 (12.0-16.0) g/dl Hct 44.0 (37.0-47.0) % MCV 82.2 (80.0-98.0) fL MCH 25.0 L (27.0-33.0) pg MCHC 30.5 L (31.0-35.0) g/dl RDW 16.9 H (11.0-16.0) % Plt Count 394 (160-400) X10*3/uL MPV 8.8 L (9.4-12.3) fL Immature Gran % (Auto) 0.4 (0.0-0.4) % Neut % (Auto) 54.9 (45-73) % Lymph % (Auto) 35.3 (20-40) % [place] % (Auto) 8.5 (2-11) % Eos % (Auto) 0.6 (0-4) % Baso % (Auto) 0.3 (0-2) % Lymph # (Auto) 6.5 H (1.2-4.9) X10*3/uL [place] # (Auto) 1.6 H (0.1-1.2) X10*3/uL Eos # (Auto) 0.1 (0.0-0.4) X10*3/uL Baso # (Auto) 0.1 (0.0-0.2) X10*3/uL Abs Immat Gran (auto) 0.08 H (0.00-0.03) X10*3/uL Absolute Neuts (auto) 10.1 H (2.0-8.3) x10*3/uL Absolute Nucleated RBC 0.000 (0.0-0.012) X10*3/uL Nucleated RBC % (auto) 0.0 (0.0-0.2) /100WBC Smear Tech's Comments VERIFIED VBG pH (7.32-7.43) VBG pCO2 mmHg VBG pO2 mmHg VBG HCO3 (22-26) mmol/L VBG O2 Saturation % VBG Base Excess mmol/L Sodium 142 (135-145) mmol/L Potassium 4.0 (3.3-5.1) mmol/L Chloride 100 (96-108) mmol/L Carbon Dioxide 28 (22-29) mmol/L Anion Gap 18 (12-20) BUN 18 H (9-16) mg/dL Creatinine 0.94 (0.5-1.4) mg/dL Estim Creat Clear Calc 60.5 Estimated GFR > 60 Random Glucose 118 H (60-115) mg/dL Lactic Acid 1.0 (0.5-2.0) mmol/L Calcium 9.3 (8.4-10.2) mg/dL Magnesium 1.9 (1.6-2.6) mg/dL Total Bilirubin 0.2 (0.0-1.0) mg/dL Direct Bilirubin < 0.2 (0.0-0.5) mg/dL AST 8 (5-31) U/L ALT 15 (0-31) U/L Alkaline Phosphatase 83 (39-117) U/L Troponin I High Sens 15.4 (<3.5-17.0) ng/L B-Natriuretic Peptide 58 (<100) pg/mL Total Protein 6.9 (6.5-8.0) g/dL Albumin 4.2 (3.5-5.0) g/dL Influenza Type A (PCR) NEGATIVE (Negative) Influenza Type B (PCR) NEGATIVE (Negative) RSV RNA Qual (PCR) NEGATIVE (Negative) SARS-CoV-2 RNA (RT-PCR) NEGATIVE (Negative) 01/14/24 Range/Units 03:12 WBC (4.8-10.8) X10*3/uL RBC (4.20-5.50) X10*6/uL Hgb (12.0-16.0) g/dl Hct (37.0-47.0) % MCV (80.0-98.0) fL MCH (27.0-33.0) pg MCHC (31.0-35.0) g/dl RDW (11.0-16.0) % Plt Count (160-400) X10*3/uL MPV (9.4-12.3) fL Immature Gran % (Auto) (0.0-0.4) % Neut % (Auto) (45-73) % Lymph % (Auto) (20-40) % [place] % (Auto) (2-11) % Eos % (Auto) (0-4) % Baso % (Auto) (0-2) % Lymph # (Auto) (1.2-4.9) X10*3/uL [place] # (Auto) (0.1-1.2) X10*3/uL Eos # (Auto) (0.0-0.4) X10*3/uL Baso # (Auto) (0.0-0.2) X10*3/uL Abs Immat Gran (auto) (0.00-0.03) X10*3/uL Absolute Neuts (auto) (2.0-8.3) x10*3/uL Absolute Nucleated RBC (0.0-0.012) X10*3/uL Nucleated RBC % (auto) (0.0-0.2) /100WBC Smear Tech's Comments VBG pH 7.40 (7.32-7.43) VBG pCO2 50 mmHg VBG pO2 73 mmHg VBG HCO3 32 H (22-26) mmol/L VBG O2 Saturation 95.0 % VBG Base Excess 6.1 mmol/L Sodium (135-145) mmol/L Potassium (3.3-5.1) mmol/L Chloride (96-108) mmol/L Carbon Dioxide (22-29) mmol/L Anion Gap (12-20) BUN (9-16) mg/dL Creatinine (0.5-1.4) mg/dL Estim Creat Clear Calc Estimated GFR Random Glucose (60-115) mg/dL Lactic Acid (0.5-2.0) mmol/L Calcium (8.4-10.2) mg/dL Magnesium (1.6-2.6) mg/dL Total Bilirubin (0.0-1.0) mg/dL Direct Bilirubin (0.0-0.5) mg/dL AST (5-31) U/L ALT (0-31) U/L Alkaline Phosphatase (39-117) U/L Troponin I High Sens (<3.5-17.0) ng/L B-Natriuretic Peptide (<100) pg/mL Total Protein (6.5-8.0) g/dL Albumin (3.5-5.0) g/dL Influenza Type A (PCR) (Negative) Influenza Type B (PCR) (Negative) RSV RNA Qual (PCR) (Negative) SARS-CoV-2 RNA (RT-PCR) (Negative) ABG Data Attestation ABG: I personally reviewed and interpreted this ABG as follows: Interpretation: Hypoxemic Independent Interpretation I performed an independent interpretation of an: EKG and Plain X-Ray Interpretation: Sinus tachycardia heart rate 108, right axis deviation nonspecific ST T wave changes no acute ST elevation/ ischemia Radiology Impression Discussion of test interpretation with radiology: I have reviewed the radiologist's reading. Critical Care Time Critical Care Time Critical Care Time: Yes Total Critical Care Time: 60 Attestation: The patient was critically ill with a high probability of imminent or life threatening deterioration. I spent greater than ?65??minutes of discontinuous time evaluating the patient,delivering critical care at the bedside, discussing and evaluating pertinent data with consultants. Critical care time does not include time spent performing separately billable procedures or teaching. Total time spent performing critical care was 60???minutes. Discharge Plan Discharge Clinical Impression: Acute hypoxemic respiratory failure, Chronic lung disease, HENRY (obstructive sleep apnea), Acute exacerbation of chronic obstructive airways disease Patient Disposition: Admitted As Inpatient
[2024-01-14] MEDS: Albuterol Sulfate 5 MG, Albuterol Sulfate (0.083%) 2.5 MG 7.5 MG INHALE (01:01)
[2024-01-14] MEDS: cefTRIAXone sodium 1 GM in 0.9 % Sodium Chloride 50 ML IV ×2 (01:17→21:32)
[2024-01-14 01:20] LABS: Basophils Absolute Auto 0.1 X10*3/uL (0.0-0.2); Basophils Percent Auto 0.3 % (0-2); Eosinophils Absolute Auto 0.1 X10*3/uL (0.0-0.4); Eosinophils Percent Auto 0.6 % (0-4); Hemoglobin 13.4 g/dl (12.0-16.0); Imm Gran Abs Auto 0.08 X10*3/uL (0.00-0.03); Imm Gran Pct Auto 0.4 % (0.0-0.4); Lymphocytes Percent Auto 35.3 % (20-40); MANUAL DIFF FLAG SCAN; Mean Corpuscular HGB Conc 30.5 g/dl (31.0-35.0); Mean Corpuscular Volume 82.2 fL (80.0-98.0); Mean Platelet Volume 8.8 fL (9.4-12.3); Monocytes Absolute Auto 1.6 X10*3/uL (0.1-1.2); Monocytes Percent Auto 8.5 % (2-11); Neutrophils Absolute Auto 10.1 x10*3/uL (2.0-8.3); Neutrophils Percent Auto 54.9 % (45-73); Platelet Count 394 X10*3/uL (160-400); Red Blood Count 5.35 X10*6/uL (4.20-5.50); Red Cell Distribution Width 16.9 % (11.0-16.0); SCAN SMEAR FLAG 1; White Blood Count 18.4 X10*3/uL (4.8-10.8)
[2024-01-14 01:22] LABS: Lymphocytes Absolute Auto 6.5 X10*3/uL (1.2-4.9)
[2024-01-14 01:37] LABS: Alanine Aminotransferase 15 U/L (0-31); Albumin Level 4.2 g/dL (3.5-5.0); Alkaline Phosphatase 83 U/L (39-117); Anion Gap 18 (12-20); Aspartate Amino Transferase 8 U/L (5-31); Bilirubin Direct < 0.2 mg/dL (0.0-0.5); Bilirubin Total 0.2 mg/dL (0.0-1.0); Blood Urea Nitrogen 18 mg/dL (9-16); Calcium 9.3 mg/dL (8.4-10.2); Carbon Dioxide 28 mmol/L (22-29); Chloride 100 mmol/L (96-108); Creatinine Clr Calc Pharmacy 60.5; Estimated Glomerular Filt Rate > 60; Glucose Random 118 mg/dL (60-115); Magnesium 1.9 mg/dL (1.6-2.6); Sodium 142 mmol/L (135-145); Total Protein 6.9 g/dL (6.5-8.0)
[2024-01-14 01:42] LABS: B Type Natriuretic Peptide 58 pg/mL (<100); Troponin-I High Sensitivity 15.4 ng/L (<3.5-17.0)
[2024-01-14 01:43] LABS: SLIDE REVIEW VERIFIED
[2024-01-14 02:01] LABS: Influenza A PCR NEGATIVE (Negative); Influenza B PCR NEGATIVE (Negative); Resp Syncy Virus RNA Qual PCR NEGATIVE (Negative); SARS COV2 PCR INHOUSE NEGATIVE (Negative)
[2024-01-14 03:17] LABS: Venous Blood Gas Refer to POC result
--- NOTE | 2024-01-14 03:23 | P.HPHOSP_ITS ---
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 Patient states her symptoms started 4 days prior to presentation. She has been having cough with yellowish sputum production along with dyspnea which is worse with exertion. Has associated wheezing. Of note, patient was admitted on 12/30 with COPD exacerbation but left against medical advice on 12/31. No chest pain or palpitations. No fever, chills, chest discomfort, abdominal pain, changes in urinary or bowel habits. In the emergency department, patient with wheezing despite multiple DuoNeb treatments. Also received IV steroids and requiring 2 L supplemental oxygen Review of Systems 2 Constitutional: Constitutional: Reports chills, Reports fatigue, Reports lethargy, Reports malaise and Reports weakness Cardiovascular: Cardiovascular: Reports dyspnea on exertion Respiratory: Respiratory: Reports cough, Reports dyspnea on exertion and Reports wheezing Gastrointestinal: Gastrointestinal: Reports no additional gastrointestinal complaints Genitourinary: Genitourinary: Reports no additional female genitourinary complaints Neurologic: Reports weakness Endocrine: Endocrine: Reports fatigue Allergic/Immunologic: Allergic/Immunologic: Reports wheezing [facility] Medical History COPD (chronic obstructive pulmonary disease) Diabetes mellitus COPD exacerbation Sleep apnea Crack cocaine use Hyperkalemia Acute exacerbation of COPD with asthma Metabolic acidosis Leukocytosis UTI (urinary tract infection) Acute respiratory failure with hypoxia Chest discomfort Chronic renal failure, stage 2 (mild) Acute and chronic respiratory failure with hypercapnia SOB (shortness of breath) Asthma Encounter for preoperative pulmonary examination Smoker Rotator cuff tendonitis GERD (gastroesophageal reflux disease) Chronic idiopathic constipation Bustos's esophagus Depression High triglycerides Gastroparesis Carpal tunnel syndrome of right wrist Nausea & vomiting Hernia Acute and chronic respiratory failure, unspecified whether with hypoxia or hypercapnia Respiratory failure HTN (hypertension) Obesity (BMI 30-39.9) Knee pain, bilateral Family History Father Heart disease HENRY (obstructive sleep apnea) Family history of breast cancer Mother Asthma Emphysema, unspecified Bronchitis Smoker Alcoholism Bone marrow disease Maternal Grandmother Diabetes Surgical History History of carpal tunnel release Hx of tubal ligation History of pubovaginal sling History of umbilical hernia repair Hx of section History of open reduction and internal fixation (ORIF) procedure Hx of cholecystectomy History of esophagogastroduodenoscopy (EGD) Social History Household Members: Family Household Members Other:: daughter Housing: House Are you a primary aged or disabled carer to a significant other at home: No Do you presently have visiting nurse or other home services: No Unable to assess alcohol history related to: Unknown Alcohol intake: former Comment: Sleeping Patient Tobacco Use Status: Current everyday Tobacco user Tobacco use type: Cigarette Cigarette Packs Per Day: 0.5 Cigarettes Per Day: 10.0 Years Smoked: 48 Smoked in Last 30 Days: Yes e-Cigarette/Vaping Use: Never Used Second Hand Smoke Exposure: No Use of substances other than those prescribed or required for medical reasons: No Substance Use Type: Crack/Cocaine Advance Directives: Yes Advance Directives on File: Yes Advance Directives Date on File: 04/15/20 Do you have a plan to hurt others: No Plan service: No Current occupational status: disabled 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 Meds Allergies Allergy/AdvReac Type Severity Reaction Status Date / Time doxycycline Allergy Severe Swelling Verified 01/14/24 00:13 varenicline [From CHANTIX] Allergy Severe ANAPHYLAXIS Verified 01/14/24 00:13 azithromycin Allergy Intermediate Rash Verified 01/14/24 00:13 barium sulfate Allergy Intermediate angioedema Verified 01/14/24 00:13 cetirizine Allergy Mild Rash Verified 01/14/24 00:13 famotidine Allergy Mild Rash Verified 01/14/24 00:13 linaclotide [Linzess] Allergy Mild Rash Verified 01/14/24 00:13 Home Medications ?Medication ?Instructions ?Recorded ?Confirmed ?Last Taken ?Type dexlansoprazole 60 mg 60 mg PO DAILY@0630 12/16/23 12/31/23 12/15/23 History capsule,biphase delayed release (Dexilant) Physical Exam 2 Vital Signs and Narrative: Vital Signs: Last Vital Signs Temp 98.0 F 01/14/24 00:09 Pulse 114 H 01/14/24 02:01 Resp 18 01/14/24 02:01 BP 160/82 H 01/14/24 02:01 Pulse Ox 97 01/14/24 02:01 O2 Del Method Nasal Cannula, Bi PAP 01/14/24 02:01 O2 Flow Rate 2 01/14/24 02:01 BMI result Body Mass Index 34.3 Middle-aged female lying in bed in mild distress Neck supple, no JVD Regular rate and rhythm, S1-S2 heard Tachypnea with bilateral wheezing Abdomen soft nontender, no guarding, no rigidity Patient is awake, alert and oriented to self, place, time and person ; no focal motor deficit Psych: Normal mood No pedal edema Results Labs 01/14/24 01:13 01/14/24 01:13 Labs: Laboratory Results - last 24 hr 01/14/24 01/14/24 01/14/24 01:03 01:12 01:13 MCV 82.2 MCH 25.0 L MCHC 30.5 L RDW 16.9 H Plt Count 394 MPV 8.8 L Immature Gran % (Auto) 0.4 Neut % (Auto) 54.9 Lymph % (Auto) 35.3 [place] % (Auto) 8.5 Eos % (Auto) 0.6 Baso % (Auto) 0.3 Lymph # (Auto) 6.5 H [place] # (Auto) 1.6 H Eos # (Auto) 0.1 Baso # (Auto) 0.1 Abs Immat Gran (auto) 0.08 H Absolute Neuts (auto) 10.1 H Absolute Nucleated RBC 0.000 Nucleated RBC % (auto) 0.0 Smear Tech's Comments VERIFIED Anion Gap 18 Estim Creat Clear Calc 60.5 Estimated GFR > 60 Random Glucose 118 H Lactic Acid 1.0 Calcium 9.3 Magnesium 1.9 Total Bilirubin 0.2 Direct Bilirubin < 0.2 AST 8 ALT 15 Alkaline Phosphatase 83 Troponin I High Sens 15.4 B-Natriuretic Peptide 58 Total Protein 6.9 Albumin 4.2 Influenza Type A (PCR) NEGATIVE Influenza Type B (PCR) NEGATIVE RSV RNA Qual (PCR) NEGATIVE SARS-CoV-2 RNA (RT-PCR) NEGATIVE Imaging Radiologist's Impressions: Impressions Chest X-Ray 01/14/24 00:32 IMPRESSION: Slightly increased interstitial markings which could be seen acutely in the setting of an infectious/inflammatory process of the small airways. Assessment and Plan (1) Acute exacerbation of chronic obstructive airways disease: Status: Acute (2) Acute hypoxemic respiratory failure: Status: Acute Plan This is a 52-year-old female with pertinent history of COPD not on home oxygen, HENRY on CPAP, hkv-ybkewaf-iridzzoun diabetes mellitus, hypertension, gastroesophageal reflux disease who presents to the emergency department for evaluation of dyspnea. #. Acute hypoxic respiratory failure due to sepsis in the setting of community- acquired pneumonia leading to acute exacerbation of COPD-asthma overlap syndrome: Will admit patient with scheduled and p.r.n. DuoNebs. IV steroids. Resuscitated dry crystalloids. Initiating empiric IV azithromycin and ceftriaxone. Lactic acid and blood culture obtained. Continue home inhaler #. Tobacco use disorder: Counseled regarding cessation. Nicotine patch while in the hospital #. HENRY: Continue CPAP at bedtime #. Obesity: Counseled regarding diet and exercise #. Cvj-lmttbtb-vtgzylopn diabetes mellitus: Initiating Accu-Cheks with sliding scale insulin #. Hypertension: Continue home antihypertensives #. Gastroesophageal reflux disease: On famotidine Med rec pending DVT prophylaxis: Lovenox Full code Admit as inpatient and will require two night minimum hospital stay for supplemental oxygen, IV antibiotics, IV steroids (as above), which is not possible in a lesser acute setting. Quality Stroke Does the patient have a stroke diagnosis?: No VTE Prior VTE?: No VTE Risk Level:: Medical - moderate - high VTE Device Contraindication: Treatment Not Indicated VTE Drug Contraindication: N/A - Med Ordered
[2024-01-14 03:24] LABS: VBG Base Excess 6.1 mmol/L; VBG HCO3 32 mmol/L (22-26); VBG pCO2 50 mmHg; VBG pO2 73 mmHg
[2024-01-14] MEDS: Nicotine 21 MG PATCH.TD24 TRANSDERMA (04:41)
[2024-01-14] MEDS: 0.9 % Sodium Chloride 500 ML IV (04:42)
--- NOTE | 2024-01-14 04:52 | PC.NURSE ---
Dr Coelho aware of pt's allergy to Azithromycin, and ok to give pt the medicine.
[2024-01-14] MEDS: Azithromycin 500 MG in 0.9 % Sodium Chloride 250 ML 125 MG IV (05:06)
[2024-01-14 05:34] LABS: Basophils Absolute Auto 0.1 X10*3/uL (0.0-0.2); Basophils Percent Auto 0.3 % (0-2); Eosinophils Percent Auto 0.1 % (0-4); Hematocrit 44.3 % (37.0-47.0); Hemoglobin 13.4 g/dl (12.0-16.0); Imm Gran Abs Auto 0.12 X10*3/uL (0.00-0.03); Imm Gran Pct Auto 0.6 % (0.0-0.4); Lymphocytes Absolute Auto 0.9 X10*3/uL (1.2-4.9); Mean Corpuscular HGB Conc 30.2 g/dl (31.0-35.0); Mean Corpuscular Hemoglobin 24.7 pg (27.0-33.0); Mean Corpuscular Volume 81.6 fL (80.0-98.0); Mean Platelet Volume 9.3 fL (9.4-12.3); Monocytes Absolute Auto 0.2 X10*3/uL (0.1-1.2); Monocytes Percent Auto 1.1 % (2-11); Neutrophils Absolute Auto 17.4 x10*3/uL (2.0-8.3); Neutrophils Percent Auto 92.9 % (45-73); Platelet Count 430 X10*3/uL (160-400); Red Blood Count 5.43 X10*6/uL (4.20-5.50); Red Cell Distribution Width 17.3 % (11.0-16.0); SCAN SMEAR FLAG 1; White Blood Count 18.7 X10*3/uL (4.8-10.8)
[2024-01-14 05:37] LABS: MANUAL DIFF FLAG SCAN
[2024-01-14 06:07] LABS: Anion Gap 20 (12-20); Blood Urea Nitrogen 20 mg/dL (9-16); Calcium 9.4 mg/dL (8.4-10.2); Carbon Dioxide 27 mmol/L (22-29); Chloride 98 mmol/L (96-108); Creatinine Clr Calc Pharmacy 56.4; Estimated Glomerular Filt Rate 57; Glucose Random 241 mg/dL (60-115); Potassium 4.1 mmol/L (3.3-5.1); Sodium 141 mmol/L (135-145)
[2024-01-14 06:26] LABS: Amphetamine Screen Urine Not Detected (Not Detect); Barbiturates, Urine Not Detected (Not Detect); Benzodiazepines Screen Urine Not Detected (Not Detect); Buprenorphine Scr Not Detected (Not Detect); Cannabinoid Screen Urine Not Detected (Not Detect); Cocaine Screen Urine POSITIVE (Not Detect); Fentanyl, urine Not Detected (Not Detect); Methadone Screen, Urine Not Detected (Not Detect); Opiate Screen Urine Not Detected (Not Detect); Oxycodone Screen Urine Not Detected (Not Detect); Phencyclidine Screen Urine Not Detected (Not Detect)
--- NOTE | 2024-01-14 06:42 | PC.NURSE ---
pt came in from home, with c/o of sob, she was placed on a bipap, on arrival, was not moving air, and guppy breathing. Pt was given lasix, and steriods. She was later placed on CPAP, she wears at home, at night. she received cefatriaxone, 500cc ns, and azithromax 500mg IV. she has 20 in r wrist. A&O x3,
--- NOTE | 2024-01-14 07:04 | PC.NURSE ---
Resumed care of pt at 0700, pt resting in bed quietly, respirations even and unlabored, lung sounds cta bilaterally, pt on CPAP O2 sat 92%, call ott within reach, pt aware of plan of care.
[2024-01-14] MEDS: Albuterol/Iprat 2.5/0.5MG 3 ML AMPUL.NEB INHALE ×4 (07:21→19:22)
[2024-01-14 07:40] LABS: Glucose, Whole Blood 270 mg/dL (60-115)
--- NOTE | 2024-01-14 08:19 | PHA.MEDREC ---
Pharmacy Consult ? Medication Reconciliation Pharmacy has completed the medication reconciliation. Was not able to speak with pt. Spoke with pts daughter (Jaja [phone]) , she was not very confident on her knowledge of patients medication however did confirm she was taking Acetaminophen, Calcium Carbonate, Dexilant, Lasix, Gabapentin, losartan, and predisone 40 mg. She stated that she was not currently taking anything to manage her diabetes. The rest of the medications were confirmed based off of claims. Also stated that the last time she took her medications was yesterday morning (01/13/2024).
[2024-01-14] MEDS: 0.9 % Sodium Chloride Flush 3 ML SYRINGE IVFLUSH ×3 (09:03→21:32)
[2024-01-14 09:07] LABS: Glucose, Whole Blood 290 mg/dL (60-115)
[2024-01-14] MEDS: Insulin Lispro 100 UNIT/ML 3 ML VIAL SUBCUT ×3 (09:09→16:25)
[2024-01-14] MEDS: Enoxaparin Sodium 40 MG/0.4 ML SYRINGE SUBCUT (09:10)
[2024-01-14] MEDS: methylPREDNISolone Sod Succ 40 MG/ML VIAL IVPUSH ×2 (09:10→21:31)
--- NOTE | 2024-01-14 09:32 | PM.EVENT ---
Event Note Date of Service: 01/14/24 Event Note: The patient was seen and evaluated this morning Feels better overall Weaning down O2 supplement Continie steroids, nebulizers and antibiotics CPAP at bedtime check home O2 need Pending cultures Time Spent With Patient Time: Total time managing care of this patient today ____ minutes.
--- NOTE | 2024-01-14 09:45 | MHC.CM.PN ---
pt lives with her sister has a deicer repairer electric who is her daughter she will need a ride home when dcd she has used the [email or web address] van in the past
[2024-01-14] MEDS: Theophylline Anhydrous ER 400 MG TAB.ER.24H PO ×2 (10:16→21:31)
[2024-01-14] MEDS: Sertraline HCL 100 MG TABLET PO (10:16)
[2024-01-14] MEDS: Losartan Potassium 50 MG TABLET PO (10:16)
[2024-01-14 11:54] LABS: Glucose, Whole Blood 259 mg/dL (60-115)
[2024-01-14] MEDS: Gabapentin 400 MG CAPSULE 800 MG PO ×3 (12:01→21:31)
[2024-01-14 16:15] LABS: Glucose, Whole Blood 292 mg/dL (60-115)
[2024-01-14 20:49] LABS: Glucose, Whole Blood 107 mg/dL (60-115)
[2024-01-14] MEDS: Calcium Carbonate 750 MG TAB.CHEW PO (21:37)
[2024-01-14] MEDS: Acetaminophen 325 MG TABLET 650 MG PO (21:37)
[2024-01-15 04:00] VITALS: BP 150/86; PULSE 94; RESP 18; TEMP 36.5; O2SAT 97
[2024-01-15] MEDS: Azithromycin 500 MG in 0.9 % Sodium Chloride 250 ML 125 MG IV (05:09)
[2024-01-15] MEDS: Albuterol/Iprat 2.5/0.5MG 3 ML AMPUL.NEB INHALE ×3 (05:10→11:11)
[2024-01-15 05:11] VITALS: PULSE 106; RESP 22; O2SAT 94
[2024-01-15] MEDS: Omeprazole 40 MG CAPSULE.DR PO (05:27)
--- NOTE | 2024-01-15 05:35 | PC.NURSE ---
Respiratory Therapist called for pt's CPAP for bedtime, RT said pt refused to use CPAP, Dr. Coelho was made aware.
[2024-01-15 06:50] LABS: Hematocrit 39.4 % (37.0-47.0); Mean Corpuscular HGB Conc 30.5 g/dl (31.0-35.0); Mean Corpuscular Hemoglobin 25.1 pg (27.0-33.0); Mean Corpuscular Volume 82.4 fL (80.0-98.0); Mean Platelet Volume 9.6 fL (9.4-12.3); Platelet Count 382 X10*3/uL (160-400); Red Blood Count 4.78 X10*6/uL (4.20-5.50); Red Cell Distribution Width 16.9 % (11.0-16.0); White Blood Count 18.7 X10*3/uL (4.8-10.8)
[2024-01-15 07:08] LABS: Anion Gap 16 (12-20); Blood Urea Nitrogen 29 mg/dL (9-16); Calcium 9.5 mg/dL (8.4-10.2); Carbon Dioxide 25 mmol/L (22-29); Chloride 102 mmol/L (96-108); Creatinine Clr Calc Pharmacy 69.5; Estimated Glomerular Filt Rate > 60; Glucose Random 283 mg/dL (60-115); Potassium 5.1 mmol/L (3.3-5.1); Sodium 138 mmol/L (135-145)
[2024-01-15 07:19] VITALS: BP 142/72; PULSE 98; RESP 18; TEMP 36.3; O2SAT 92
[2024-01-15 07:22] LABS: Glucose, Whole Blood 298 mg/dL (60-115)
[2024-01-15] MEDS: Furosemide 20 MG TABLET PO (07:36)
[2024-01-15] MEDS: Aspirin Enteric Coated 81 MG TABLET.DR PO (07:36)
[2024-01-15] MEDS: Insulin Lispro 100 UNIT/ML 3 ML VIAL SUBCUT (07:36)
[2024-01-15] MEDS: Theophylline Anhydrous ER 400 MG TAB.ER.24H PO (07:36)
[2024-01-15] MEDS: Enoxaparin Sodium 40 MG/0.4 ML SYRINGE SUBCUT (07:36)
[2024-01-15] MEDS: Losartan Potassium 50 MG TABLET PO (07:36)
[2024-01-15] MEDS: Nicotine 21 MG PATCH.TD24 TRANSDERMA (07:37)
[2024-01-15] MEDS: Gabapentin 400 MG CAPSULE 800 MG PO (07:37)
[2024-01-15] MEDS: Sertraline HCL 100 MG TABLET PO (07:37)
[2024-01-15 07:44] VITALS: PULSE 98; RESP 18; O2SAT 94
[2024-01-15] MEDS: methylPREDNISolone Sod Succ 40 MG/ML VIAL IVPUSH (09:41)
--- NOTE | 2024-01-15 10:55 | P.DS_ITS ---
DS: Providers Provider Date of Service: 01/15/24 Date of admission: 01/14/24 03:21 Primary care physician: Unknown Physician DS: Diagnosis Discharge Diagnosis (1) Acute exacerbation of chronic obstructive airways disease: Status: Acute (2) Acute hypoxemic respiratory failure: Status: Acute DS: Summary Hospital Course Hospital Course: from initial hpi: 52-year-old female with pertinent history of COPD-asthma overlap syndrome not on home oxygen, HENRY on CPAP, [id number] diabetes mellitus, hypertension, gastroesophageal reflux disease, active tobacco use disorder, history of cocaine use, obesity who presents to the emergency department for evaluation of dyspnea. Patient states her symptoms started 4 days prior to presentation. She has been having cough with yellowish sputum production along with dyspnea which is worse with exertion. Has associated wheezing. Of note, patient was admitted on 12/30 with COPD exacerbation but left against medical advice on 12/31. No chest pain or palpitations. No fever, chills, chest discomfort, abdominal pain, changes in urinary or bowel habits. In the emergency department, patient with wheezing despite multiple DuoNeb treatments. Also received IV steroids and requiring 2 L supplemental oxygen hospital course: Patient was admitted for acute hypoxic respiratory failure and sepsis due to COPD/severe persistent asthma with acute decompensation. She was treated with IV steroids ceftriaxone and azithromycin, DuoNebs. Symptoms resolved. Patient's shortness breath back to baseline, weaned off oxygen. Sepsis resolved. Will be discharged home on prednisone taper and 5 days of Ceftin. For HENRY continued CPAP at night. For obesity weight loss recommended. For diabetes was continued on sliding scale. Patient is feeling better will be discharged home. Time Attestation Discharge Coordination Time (in mins): 32 Quality: Safe Use of Opioids Does Pt have an Active Cancer Diagnosis on the Problem List?: No Quality: Stroke Does the patient have a stroke diagnosis?: No Physical Exam Vital Signs: Vital Signs: Last Vital Signs Temp 97.4 F 01/15/24 07:19 Pulse 98 01/15/24 07:44 Resp 18 01/15/24 07:44 BP 142/72 H 01/15/24 07:19 Pulse Ox 92 01/15/24 07:19 O2 Del Method Room Air 01/15/24 07:19 O2 Flow Rate 2 01/15/24 04:00 BMI result Body Mass Index 36.8 cushionoid appearance, alert oriented x3, no acute distress, lungs clear DS: Data Data Completed and Pending Completed studies during hospitalization [Text1]: Procedures Assistance with Respiratory Ventilation, Less than 24 Consecutive Hours, Continuous Positive Airway Pressure (12/31/23) Insertion of Endotracheal Airway into Trachea, Via Natural or Artificial Opening (11/03/20) Insertion of Infusion Device into Superior Vena Cava, Percutaneous Approach (11/03/20) Respiratory Ventilation, Less than 24 Consecutive Hours (11/03/20) Labs on day of discharge: Laboratory Results - last 24 hr 01/14/24 01/14/24 01/14/24 11:36 16:06 20:45 WBC RBC Hgb Hct MCV MCH MCHC RDW Plt Count MPV Absolute Nucleated RBC Nucleated RBC % (auto) Sodium Potassium Chloride Carbon Dioxide Anion Gap BUN Creatinine Estim Creat Clear Calc Estimated GFR POC Glucose 259 H 292 H 107 Random Glucose Calcium 01/15/24 01/15/24 05:37 07:16 WBC 18.7 H RBC 4.78 Hgb 12.0 Hct 39.4 MCV 82.4 MCH 25.1 L MCHC 30.5 L RDW 16.9 H Plt Count 382 MPV 9.6 Absolute Nucleated RBC 0.000 Nucleated RBC % (auto) 0.0 Sodium 138 Potassium 5.1 D Chloride 102 Carbon Dioxide 25 Anion Gap 16 BUN 29 H Creatinine 0.85 Estim Creat Clear Calc 69.5 Estimated GFR > 60 POC Glucose 298 H Random Glucose 283 H Calcium 9.5 Preliminary micro results at discharge 01/14/24 01:12 Blood Culture - Preliminary Blood - Venous No growth after 24 hours. 01/14/24 01:03 Blood Culture - Preliminary Blood - Venous No growth after 24 hours. Discharge Plan Discharge Anticipated Discharge Date/Time: 01/15/24 10:52 Patient Disposition: Home, Self-Care Discharge Diagnosis: copd, asthma Referrals: Physician,Unknown J [Primary Care Provider] - 1 Week Discharge Medications: New cefuroxime axetil 500 mg tablet 500 mg PO BID Qty: 10 0RF prednisone 20 mg tablet 40 mg PO DAILY Qty: 15 0RF Rx Instructions: 40mg daily for 5 days, then 20mg daily for 5 days Continued (DME) lancets [FreeStyle Lancets] 28 gauge misc See Rx Instructions .ROUTE .MEDSUPPLY Qty: 100 1RF Rx Instructions: Use to check blood sugar daily or if symptomatic hypo/hypergylcemia (DME) 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 meter [FreeStyle Lite Meter] Kit See Rx Instructions .ROUTE .MEDSUPPLY Qty: 1 0RF Rx Instructions: Use to check blood sugar daily or if symptomatic for hypo/hyperglycemia (DME) FreeStyle Lite Strips Strip See Rx Instructions .ROUTE .MEDSUPPLY Qty: 100 1RF Rx Instructions: Use to check blood sugar daily or if symptomatic hypo/hypergylcemia theophylline 400 mg tablet extended release 24 hr 400 mg PO BID 90 Days Qty: 180 4RF ipratropium bromide 0.02 % solution 2.5 ml inhalation Q6H PRN (Reason: for wheezing) 30 Days Qty: 187.5 6RF calcium carbonate-vitamin D3 500 mg-10 mcg (400 unit) tablet 1 tab PO BID 30 Days Qty: 60 6RF furosemide 20 mg tablet 20 mg PO DAILY Qty: 90 3RF losartan 50 mg tablet 50 mg PO DAILY Qty: 90 1RF sertraline 100 mg tablet 100 mg PO DAILY Qty: 90 0RF gabapentin 800 mg tablet 800 mg PO QID Qty: 120 0RF tizanidine 4 mg tablet 4 mg PO Q12H PRN (Reason: muscle spasm) 30 Days Qty: 60 0RF Rx Instructions: do not take concurrently with famotidine acetaminophen 650 mg tablet extended release 650 mg PO Q12H PRN (Reason: pain) 30 Days Qty: 60 0RF aspirin 81 mg tablet,delayed release (DR/EC) 81 mg PO DAILY 90 Days Qty: 90 1RF ibuprofen 800 mg tablet 800 mg PO BID PRN (Reason: pain) Qty: 60 0RF Rx Instructions: please use sparingly due to diabetes prednisone 20 mg tablet 40 mg PO DAILY Qty: 10 0RF albuterol sulfate 90 mcg/actuation HFA aerosol inhaler 2 puff inhalation QID Qty: 8.5 3RF dexlansoprazole [Dexilant] 60 mg capsule,biphase delayed releas 60 mg PO DAILY@0630 Discharge Orders: Discharge Order (Routine); Ordered 01/15/24 Ordered By: Pierre Agustin Diet: Advance to usual diet Activity on Discharge: As tolerated Stand Alone Forms: Patient Portal Discharge page Print Language: Northern Irish Care Plan Goals: recvoery Health Concerns: copd, asthma Plan of Treatment: prednisone taper, ceftin 5 days, follow up pulm, stop smoking Assessment: see above
[2024-01-15 11:12] VITALS: PULSE 97; RESP 18; O2SAT 94
[2024-01-15 11:28] LABS: Glucose, Whole Blood 147 mg/dL (60-115)
== END 2024-01-15 11:46 | disposition home or self-care (01) | DRG 720 ==
LOC: HO.ED 01-14 03:34 → HO.EDOVER 01-14 03:35 → HO.S3 01-14 07:38
PROVIDERS: Emergency Medicine; Student in an Organized Health Care Education/Training Program; Admitting Provider Student in an Organized Health Care Education/Training Program; Emergency Provider Internal Medicine; Visit Provider Internal Medicine
DX: A41.9 Sepsis, unspecified organism (principal); J96.01 Acute respiratory failure with hypoxia; J44.0 Chronic obstructive pulmonary disease with (acute) lower respiratory infection; J44.1 Chronic obstructive pulmonary disease with (acute) exacerbation; J18.9 Pneumonia, unspecified organism; J45.51 Severe persistent asthma with (acute) exacerbation; G47.33 Obstructive sleep apnea (adult) (pediatric); F17.210 Nicotine dependence, cigarettes, uncomplicated; I10 Essential (primary) hypertension; E11.9 Type 2 diabetes mellitus without complications; Z71.3 Dietary counseling and surveillance; E66.9 Obesity, unspecified; Z68.36 Body mass index [BMI] 36.0-36.9, adult; Z71.6 Tobacco abuse counseling; Z20.822 Contact with and (suspected) exposure to COVID-19; Z79.82 Long term (current) use of aspirin; Z79.52 Long term (current) use of systemic steroids; Z79.899 Other long term (current) drug therapy
CPT/HCPCS: 0241U; 36415; 71045; 80048; 80076; 80307; 82803; 82947; 83605; 83735; 83880; 84484; 85025; 85027; 87040; 93005; 94640; 94660; 99285; J0456; J0696; J1650; J1940; J2919

== ENCOUNTER → 2024-01-14 00:21 | Outpatient (BNV) | payer OTHER, SELFPAY | PROVIDERS: Admitting Provider Student in an Organized Health Care Education/Training Program; Emergency Provider Internal Medicine; Responsible Provider Internal Medicine; Visit Provider Internal Medicine Cardiovascular Disease | DX: R06.02 Shortness of breath (principal) | CPT/HCPCS: 93010 ==

== ENCOUNTER → 2024-01-14 00:37 | Outpatient (BNV) | payer OTHER, SELFPAY | PROVIDERS: Emergency Provider Internal Medicine; Visit Provider Student in an Organized Health Care Education/Training Program | DX: J44.1 Chronic obstructive pulmonary disease with (acute) exacerbation (principal); J96.01 Acute respiratory failure with hypoxia | CPT/HCPCS: 99223; 99239; 99499 ==

== ENCOUNTER 2024-01-20 10:22 | Outpatient (AMB) | payer OTHER, SELFPAY ==
[2024-01-20 10:23] VITALS: BP 132/60; PULSE 105; O2SAT 92; BMI 36.8
--- NOTE | 2024-01-20 10:23 | MHC.OFFVIS ---
Vital Signs 01/20/24 10:23 Height 4 ft 11 in Weight 182 lb BMI 36.8 BP 132/60 Blood Pressure Location Rt brachial Position Sitting Pulse 105 H Pulse Source Doppler Pulse Oximetry (%) 92 Oxygen Delivery Method Room Air Intake Visit Reasons: Asthma-6 min walk Allergies doxycycline Allergy (Severe, Verified 01/20/24 10:28) Swelling varenicline [From CHANTIX] Allergy (Severe, Verified 01/20/24 10:28) ANAPHYLAXIS azithromycin Allergy (Intermediate, Verified 01/20/24 10:28) Rash barium sulfate Allergy (Intermediate, Verified 01/20/24 10:28) angioedema cetirizine Allergy (Mild, Verified 01/20/24 10:28) Rash famotidine Allergy (Mild, Verified 01/20/24 10:28) Rash linaclotide [Linzess] Allergy (Mild, Verified 01/20/24 10:28) Rash HPI HPI Asthma-6 min walk: Details: 53-year-old lady, active 40+ pack-year smoker, with underlying obesity, severe HENRY, followed for dyspnea on exertion and moderate COPD. She continues to use Stiolto, theophylline, duo nebs, and albuterol MDI with reasonable baseline control of her symptoms, however, she does get frequent exacerbations. She continues on BiPAP therapy. She did have recent exacerbation evaluated in the emergency room and treated with a course of prednisone not fully resolved yet. [facility] Medical History COPD (chronic obstructive pulmonary disease) Diabetes mellitus COPD exacerbation Sleep apnea Crack cocaine use Hyperkalemia Acute exacerbation of COPD with asthma Metabolic acidosis Leukocytosis UTI (urinary tract infection) Acute respiratory failure with hypoxia Chest discomfort Chronic renal failure, stage 2 (mild) Acute and chronic respiratory failure with hypercapnia SOB (shortness of breath) Asthma Encounter for preoperative pulmonary examination Smoker Rotator cuff tendonitis GERD (gastroesophageal reflux disease) Chronic idiopathic constipation Bustos's esophagus Depression High triglycerides Gastroparesis Carpal tunnel syndrome of right wrist Nausea & vomiting Hernia Acute and chronic respiratory failure, unspecified whether with hypoxia or hypercapnia Respiratory failure HTN (hypertension) Obesity (BMI 30-39.9) Knee pain, bilateral Surgical History History of carpal tunnel release Hx of tubal ligation History of pubovaginal sling History of umbilical hernia repair Hx of section History of open reduction and internal fixation (ORIF) procedure Hx of cholecystectomy History of esophagogastroduodenoscopy (EGD) Family History Father Heart disease HENRY (obstructive sleep apnea) Family history of breast cancer Mother Asthma Emphysema, unspecified Bronchitis Smoker Alcoholism Bone marrow disease Maternal Grandmother Diabetes Social History Household Members: Family Household Members Other:: daughter Housing: House Are you a primary career placement services counselor to a significant other at home: No Do you presently have visiting nurse or other home services: No Unable to assess alcohol history related to: Unknown Alcohol intake: former Comment: Sleeping Patient Tobacco Use Status: Current everyday Tobacco user Tobacco use type: Cigarette Cigarette Packs Per Day: 1 Cigarettes Per Day: 20.0 Years Smoked: 48 e-Cigarette/Vaping Use: Never Used Second Hand Smoke Exposure: No Substance Use Type: Crack/Cocaine Advance Directives Date on File: 04/15/20 service: No Current occupational status: disabled 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 Review of Systems Const Denies daytime sleepiness, Denies excessive sweating, Denies fatigue, Denies fever(s), Denies lethargy, Denies malaise, Denies night sweats, Denies snoring and Denies weight loss Eyes Denies blurry vision and Denies itchy eyes ENT Denies nasal congestion, Denies post nasal drip, Denies sinus pain, Denies sinus pressure and Denies other ( Thrush) Card Denies chest pain, Denies pedal edema, Reports dyspnea, Denies orthopnea and Denies paroxysmal nocturnal dyspnea Resp Denies cough, Denies hemoptysis, Denies excessive phlegm production, Reports dyspnea, Denies snoring and Reports wheezing GI Denies abdominal pain and Denies heartburn Musc Denies myalgias, Denies arthralgias and Denies joint swelling Skin/Breast Denies rash Neuro Denies memory loss and Denies seizure-like activity Psych Denies abnormal sleep pattern, Denies anxiety and Denies memory loss Endo Denies excessive sweating, Denies fatigue and Denies heat intolerance José/Lymph Denies easy bruising Aller/Immun Denies itchy eyes, Denies seasonal rhinorrhea and Reports wheezing Physical Exam Vital Signs: Last Vital Signs Pulse 105 H 01/20/24 10:23 BP 132/60 01/20/24 10:23 Pulse Ox 92 01/20/24 10:23 Oxygen Delivery Method Room Air 01/20/24 10:23 BMI result Body Mass Index 36.8 Const General: no acute distress and alert Nutritional Appearance: obese Orientation/consciousness: Other orientation findings ( oriented) HEENT Head: Yes atraumatic Eyes General: appearance normal, both eyes and all related structures Sclerae: sclerae normal EOM: EOMs intact bilaterally Neck Neck: Yes supple Lymphatic: no lymphadenopathy noted Resp Effort & Inspection: normal respiratory effort and no use of accessory muscles Auscultation: wheezes expiratory wheezes (Bilateral) Cardio Rate: regular rate Rhythm: regular rhythm Heart sounds: no gallops, no murmurs and no rubs Skin General skin exam: other ( warm) Extrem General: No clubbing, No cyanosis and No edema Assessment & Plan Assessment & Plan (1) COPD (chronic obstructive pulmonary disease): Code(s): J44.9 - Chronic obstructive pulmonary disease, unspecified Category: Medical Plan: Asthma/COPD overlap with exacerbation when patient used cocaine. Baseline controlled on prednisone 7.5 mg daily, theophylline 400, Stiolto, and albuterol MDI. Continue current regimen. (2) HENRY (obstructive sleep apnea): Code(s): G47.33 - Obstructive sleep apnea (adult) (pediatric) Category: Medical Plan: Well controlled on BiPAP therapy. Continue BiPAP therapy. (3) COPD exacerbation: Code(s): J44.1 - Chronic obstructive pulmonary disease with (acute) exacerbation Category: Medical Plan: Secondary to cocaine inhalation, still with significant wheezing. Will treat with prolonged prednisone taper. Medications: New tiotropium-olodaterol 2.5-2.5 mcg/actuation (Stiolto Respimat) 2 puffs inhalation DAILY 4 grams 6RF prednisone Take 4 pills daily for 7 days, then go down by 1 pill every 7 days 10 mg PO DIRECTED 70 tabs 0RF Discontinued prednisone 40mg daily for 5 days, then 20mg daily for 5 days Discontinued Reason: Doctor's Order 40 mg (2 x 20 mg) PO DAILY 15 tabs 0RF prednisone Discontinued Reason: Doctor's Order 40 mg (2 x 20 mg) PO DAILY 10 tabs 0RF Coding Level of Care Code Est Pt Level 4 (28907) Diagnoses Chronic obstructive pulmonary disease with acute lower respiratory infection J44.9 HENRY (obstructive sleep apnea) G47.33 COPD exacerbation J44.1
== END 2024-01-20 10:36 | disposition home or self-care (01) ==
PROVIDERS: PCP Nurse Practitioner Family; Visit Provider Internal Medicine Pulmonary Disease
DX: J44.9 Chronic obstructive pulmonary disease, unspecified (principal); G47.33 Obstructive sleep apnea (adult) (pediatric); J44.1 Chronic obstructive pulmonary disease with (acute) exacerbation
CPT/HCPCS: 99214

== ENCOUNTER → 2024-01-20 10:22 | Outpatient (BNVA) | payer OTHER, SELFPAY | PROVIDERS: PCP Nurse Practitioner Family; Visit Provider Internal Medicine Pulmonary Disease | DX: J44.9 Chronic obstructive pulmonary disease, unspecified (principal); G47.33 Obstructive sleep apnea (adult) (pediatric); J44.1 Chronic obstructive pulmonary disease with (acute) exacerbation | CPT/HCPCS: 99212 ==

== ENCOUNTER 2024-02-13 01:07 | Inpatient (IN) | payer OTHER, SELFPAY ==
[2024-02-13] VITALS (19 sets, daily range): BP systolic 101–191; BP diastolic 37–104; PULSE 16–114; RESP 15–25; TEMP 36–37.2; O2SAT 85–99; BMI 19.2
--- NOTE | 2024-02-13 | ECG_ITS ---
Test Reason : DYSPNEA Blood Pressure : / mmHG Vent. Rate : 106 BPM Atrial Rate : 106 BPM P-R Int : 124 ms QRS Dur : 082 ms QT Int : 316 ms P-R-T Axes : 073 148 050 degrees QTc Int : 419 ms Sinus tachycardia Right axis deviation Low voltage QRS Cannot rule out Anterior infarct , age undetermined Abnormal ECG When compared with ECG of 14-JAN-2024 08:53, Premature atrial complexes are no longer Present Heart rate has increased Referred By: Generic ED Physician Electronically Signed By:ROXANNE FENG
--- NOTE | ~2024-02-13 | XR_ITS ---
EXAMINATION: XR CHEST CLINICAL INFORMATION: Cough. COMPARISON: 01/14/2024. TECHNIQUE: Frontal view of the chest was obtained. FINDINGS: The cardiomediastinal silhouette is stable. There is no focal lung consolidation or pleural effusions. The bony structures and soft tissues are unremarkable. XR/XR chest 1V IMPRESSION: No acute cardiopulmonary process.
[2024-02-13] MEDS: Albuterol Sulfate 2.5 MG, Albuterol/Iprat 2.5/0.5MG 3 ML 3 ML INHALE (01:23)
--- NOTE | 2024-02-13 01:29 | ED_ITS ---
HPI - SOB/Dyspnea General Chief Complaint: Dyspnea Stated Complaint: difficulty breathing Time Seen by Provider: 02/13/24 01:19 Source: patient and EMS Mode of arrival: EMS Limitations: no limitations History of Present Illness ED Provider: Dr. Ly Bazan HPI Narrative: Patient comes to the emergency room via ambulance from home. Patient states that she has been having productive cough and shortness of breath and wheezing for 3 days. Patient has been using her inhalers at home without any relief. Patient any chest pain. Denies fevers. According to EMS, patient's oxygen saturation was 85% on room air at home when they picked her up. Patient is not oxygen dependent. EMS gave to the patient 125 mg of Solu-Medrol and 2 g of IV magnesium. On arrival, oxygen saturation 92% on room air. Related Data Home Medications ?Medication ?Instructions ?Recorded ?Confirmed dexlansoprazole 60 mg 60 mg PO DAILY@0630 12/16/23 01/14/24 capsule,biphase delayed release (Dexilant) Previous Rx's ?Medication ?Instructions ?Recorded lancets 28 gauge (FreeStyle #100 ea 01/20/21 Lancets) 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 meter (FreeStyle #1 ea 03/01/22 Lite Meter kit) blood sugar diagnostic (FreeStyle #100 ea 09/16/22 Lite Strips) albuterol sulfate 90 mcg/actuation 2 puff inhalation QID #8.5 grams 06/03/23 aerosol inhaler calcium carbonate 500 mg-vitamin 1 tab PO BID 30 days #60 tabs 12/09/23 D3 10 mcg (400 unit) tablet furosemide 20 mg tablet 20 mg PO DAILY #90 tabs 12/09/23 ipratropium bromide 0.02 % 2.5 ml inhalation Q6H PRN for 12/09/23 solution for inhalation wheezing 30 days #187.5 mL losartan 50 mg tablet 50 mg PO DAILY #90 tabs 12/09/23 sertraline 100 mg tablet 100 mg PO DAILY #90 tabs 12/09/23 acetaminophen 650 mg 650 mg PO Q12H PRN pain 30 days 01/01/24 tablet,extended release #60 tabs aspirin 81 mg tablet,delayed 81 mg PO DAILY 90 days #90 tabs 01/01/24 release cefuroxime axetil 500 mg tablet 500 mg PO BID #10 tabs 01/15/24 prednisone 10 mg tablet 10 mg PO DIRECTED #70 tabs 01/20/24 tiotropium 2.5 mcg-olodaterol 2.5 2 puff inhalation DAILY #4 grams 01/20/24 mcg/actuation mist for inhalation (Stiolto Respimat) gabapentin 800 mg tablet 800 mg PO QID #120 tabs 01/27/24 theophylline 400 mg 400 mg PO BID 90 days #180 tabs 01/27/24 tablet,extended release 24 hr tizanidine 4 mg tablet 4 mg PO Q12H PRN muscle spasm 30 01/27/24 days #60 tabs ibuprofen 800 mg tablet 800 mg PO BID PRN pain #60 tabs 01/31/24 Allergies Allergy/AdvReac Type Severity Reaction Status Date / Time doxycycline Allergy Severe Swelling Verified 02/13/24 01:16 varenicline [From CHANTIX] Allergy Severe ANAPHYLAXIS Verified 02/13/24 01:16 azithromycin Allergy Intermediate Rash Verified 02/13/24 01:16 barium sulfate Allergy Intermediate angioedema Verified 02/13/24 01:16 cetirizine Allergy Mild Rash Verified 02/13/24 01:16 famotidine Allergy Mild Rash Verified 02/13/24 01:16 linaclotide [Linzess] Allergy Mild Rash Verified 02/13/24 01:16 Review of Systems 2 Review of Systems: Constitutional : No Weight loss, No Fever, No Chills, No Night Sweats, No Fatigue, No Malaise ENT/Mouth : No Hearing loss, No Ear Pain, No Nasal Congestion, No Sinus Pain, No Hoarseness, No sore throat, No Rhinorrhea, No Swallowing Difficulty Eyes: No Eye Pain, No Swelling, No Redness, No Foreign Body, No Discharge, No Vision Changes Cardiovascular : No Chest Pain, No SOB, No Dyspnea on Exertion, No Orthopnea, No Edema, No Palpitations Respiratory : Complaining of productive cough, wheezing and shortness of breath despite using inhalers Gastrointestinal : No Nausea, No Vomiting, No Diarrhea, No Constipation, No abdominal Pain, No Hematochezia, No Melena Genitourinary : no irregular bleeding, No Dysuria, No Urinary Frequency, No Hematuria, No Urinary Incontinence, No Urgency, No Flank Pain, No Urinary Flow Changes, No Hesitancy Musculoskeletal : No joint pain, No Myalgias, No Joint Swelling Skin : No Skin Lesions, No rash Neuro : No Weakness, No Numbness, No Paresthesias, No Loss of Consciousness, No Dizziness, No Headache Psych : No Anxiety/Panic, No Depression, No SI/HI/AH/VH, No Social Issues, Heme/Lymph: No Bruising, No Bleeding,No Lymphadenopathy Endocrine : No Polyuria, No Polydipsia, No Temperature Intolerance PMF Past Medical History Medical History COPD (chronic obstructive pulmonary disease) Diabetes mellitus COPD exacerbation Sleep apnea Crack cocaine use Hyperkalemia Acute exacerbation of COPD with asthma Metabolic acidosis Leukocytosis UTI (urinary tract infection) Acute respiratory failure with hypoxia Chest discomfort Chronic renal failure, stage 2 (mild) Acute and chronic respiratory failure with hypercapnia SOB (shortness of breath) Asthma Encounter for preoperative pulmonary examination Smoker Rotator cuff tendonitis GERD (gastroesophageal reflux disease) Chronic idiopathic constipation Bustos's esophagus Depression High triglycerides Gastroparesis Carpal tunnel syndrome of right wrist Nausea & vomiting Hernia Acute and chronic respiratory failure, unspecified whether with hypoxia or hypercapnia Respiratory failure HTN (hypertension) Obesity (BMI 30-39.9) Knee pain, bilateral Surgical History History of carpal tunnel release Hx of tubal ligation History of pubovaginal sling History of umbilical hernia repair Hx of section History of open reduction and internal fixation (ORIF) procedure Hx of cholecystectomy History of esophagogastroduodenoscopy (EGD) Family History Family History Father Heart disease HENRY (obstructive sleep apnea) Family history of breast cancer Mother Asthma Emphysema, unspecified Bronchitis Smoker Alcoholism Bone marrow disease Maternal Grandmother Diabetes Social History Social History Household Members: Family Household Members Other:: daughter Housing: House Are you a primary field care coordinator to a significant other at home: No Do you presently have visiting nurse or other home services: No Unable to assess alcohol history related to: Unknown Alcohol intake: former Comment: Sleeping Patient Tobacco Use Status: Current everyday Tobacco user Tobacco use type: Cigarette Cigarette Packs Per Day: 1 Cigarettes Per Day: 20.0 Years Smoked: 48 Smoked in Last 30 Days: Yes e-Cigarette/Vaping Use: Never Used Second Hand Smoke Exposure: No Use of substances other than those prescribed or required for medical reasons: Yes Substance Use Type: Crack/Cocaine Substance Use Frequency: Monthly Advance Directives: Yes Advance Directives on File: Yes Advance Directives Date on File: 04/15/20 Do you have a plan to hurt others: No Plan Patient : No service: No Current occupational status: disabled 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 Physical Exam 2 Vital Signs: Vital Signs: Last Vital Signs Temp 98.7 F 02/13/24 02:37 Pulse 108 H 02/13/24 02:43 Resp 19 02/13/24 02:37 BP 136/88 02/13/24 02:37 Pulse Ox 85 L 02/13/24 02:43 O2 Del Method Room Air 02/13/24 02:43 BMI result Body Mass Index 19.2 Const: Other: Appearance: Alert. Oriented X3. No acute distress. Eyes: Pupils equal, round and reactive to light. ENT: Pharynx normal. Neck: Normal inspection. Neck supple. No lymph nodes noted. No crepitus CVS: Normal heart rate and rhythm. Pulses normal. Normal S1 and S2 Respiratory: Actively coughing, no significant wheezing at this time, but still tachypneic Abdomen: Soft and nontender. No rigidity. No distention. Skin: Skin warm and dry. Normal skin color. Normal skin turgor. Extremities: No lower extremity edema. No Lacerations. No Rash Neuro: Oriented X 3. No motor deficit. No sensory deficit. Moving all extremities. No slurred speech. CN 2 through 12 grossly intact Psych: calm, cooperative, normal affect Course Course Course Narrative: -patient already received Solu-Medrol and magnesium which was given by EMS, also received a nebulization treatment. -bronch protocol has been started in the ED -given patient's past medical history and current symptoms patient being treated with IV fluids, based on ideal weight of 40 kg, patient also receiving IV antibiotics ceftriaxone and azithromycin. In patient's chart, it says that patient is allergic to cephalosporins and azithromycin. However, when patient was admitted here 2 months ago, patient was treated with both ceftriaxone and azithromycin and she did not have any allergic reaction. Patient was sent home with p.o. cephalosporin and tolerated them well. -all of patient's labs and imaging pending Medications Administered Generic Name Dose Route Start Last Admin Trade Name Freq PRN Reason Stop Dose Admin Sodium Chloride 1,500 mls @ 999 mls/hr 02/13/24 01:26 02/13/24 01:47 Ns IVCONT 02/13/24 02:56 999 mls/hr .[id number] ONE Administration Azithromycin 500 mg/ Sodium 250 mls @ 125 mls/hr 02/13/24 01:26 02/13/24 02:31 Chloride IV 02/13/24 03:25 125 mls/hr ONCE ONE Administration Discontinued Medications Generic Name Dose Route Start Last Admin Trade Name Freq PRN Reason Stop Dose Admin Albuterol Sulfate 2.5 mg/ 0 mg 02/13/24 01:21 02/13/24 01:23 Albuterol/Ipratropium 3 ml INHALE 02/13/24 01:22 5 dose ONCE ONE Administration Ceftriaxone Sodium 1 gm/ 50 mls @ 100 mls/hr 02/13/24 01:26 02/13/24 01:55 Sodium Chloride IV 02/13/24 01:55 100 mls/hr ONCE ONE Administration Medical Decision Making Medical Decision Making MDM Narrative: -my interpretation of labs, hematology at baseline, chemistry at baseline. We received a phone call from the lab, the chemistry seems to be slightly hemolyzed therefore the potassium is falsely elevated. Patient's lactic acid 2.1 secondary to multiple nebulization treatments. Troponin 19.9, COVID negative. -patient was ambulated around the emergency room, patient's oxygen saturation remained in the 90s. However, while patient is sitting in her bed an awake, her O2 drops to 85% with good waveform. Patient is now on 2 L of oxygen -I discussed the patient with Dr. Coelho, patient being admitted Differential Diagnosis Differential Diagnoses: The differential diagnosis associated with the presentation includes (Asthma, COPD, COVID, RSV) Admission/Observation Consideration of admission/observation: Escalation of care including admission/observation considered Consult Healthcare Provider Management of the patient was discussed with: Hospitalist Lab Data [facility] Lab Attestation statement: I reviewed the patient's lab results. 02/13/24 01:28 02/13/24 01:28 Labs: Lab Results 08/15/24 08/15/24 08/15/24 Range/Units 01:28 01:33 01:36 WBC 12.2 H (4.8-10.8) X10*3/uL RBC 4.96 (4.20-5.50) X10*6/uL Hgb 12.3 (12.0-16.0) g/dl Hct 39.4 (37.0-47.0) % MCV 79.4 L (80.0-98.0) fL MCH 24.8 L (27.0-33.0) pg MCHC 31.2 (31.0-35.0) g/dl RDW 16.9 H (11.0-16.0) % Plt Count 352 (160-400) X10*3/uL MPV 9.1 L (9.4-12.3) fL Immature Gran % (Auto) 0.7 H (0.0-0.4) % Neut % (Auto) 84.6 H (45-73) % Lymph % (Auto) 10.5 L (20-40) % [place] % (Auto) 3.8 (2-11) % Eos % (Auto) 0.2 (0-4) % Baso % (Auto) 0.2 (0-2) % Lymph # (Auto) 1.3 (1.2-4.9) X10*3/uL [place] # (Auto) 0.5 (0.1-1.2) X10*3/uL Eos # (Auto) 0.0 (0.0-0.4) X10*3/uL Baso # (Auto) 0.0 (0.0-0.2) X10*3/uL Abs Immat Gran (auto) 0.08 H (0.00-0.03) X10*3/uL Absolute Neuts (auto) 10.3 H (2.0-8.3) x10*3/uL Absolute Nucleated RBC 0.000 (0.0-0.012) X10*3/uL Nucleated RBC % (auto) 0.0 (0.0-0.2) /100WBC VBG pH 7.45 H (7.32-7.43) VBG pCO2 39 mmHg VBG pO2 87 mmHg VBG HCO3 27 H (22-26) mmol/L VBG O2 Saturation 99.0 % VBG Base Excess 3.9 mmol/L Sodium 137 (135-145) mmol/L Potassium 5.5 H (3.3-5.1) mmol/L Chloride 103 (96-108) mmol/L Carbon Dioxide 22 (22-29) mmol/L Anion Gap 18 (12-20) BUN 14 (9-16) mg/dL Creatinine 0.85 (0.5-1.4) mg/dL Estim Creat Clear Calc 51.0 Estimated GFR > 60 Random Glucose 239 H (60-115) mg/dL Lactic Acid 2.1 H* (0.5-2.0) mmol/L Calcium 9.9 (8.4-10.2) mg/dL Total Bilirubin 0.2 (0.0-1.0) mg/dL AST 14 (5-31) U/L ALT 14 (0-31) U/L Alkaline Phosphatase 89 (39-117) U/L Troponin I High Sens 19.9 H (<3.5-17.0) ng/L Total Protein 6.8 (6.5-8.0) g/dL Albumin 3.9 (3.5-5.0) g/dL Influenza Type A (PCR) NEGATIVE (Negative) Influenza Type B (PCR) NEGATIVE (Negative) RSV RNA Qual (PCR) NEGATIVE (Negative) SARS-CoV-2 RNA (RT-PCR) NEGATIVE (Negative) Independent Interpretation I performed an independent interpretation of an: Plain X-Ray Radiology Impression Discussion of test interpretation with radiology: I have reviewed the radiologist's reading. Radiologist Impression: The cardiomediastinal silhouette is stable. There is no focal lung consolidation or pleural effusions. The bony structures and soft tissues are unremarkable. XR/XR chest 1V IMPRESSION: No acute cardiopulmonary process. Critical Care Time Critical Care Time Critical Care Time: Yes Total Critical Care Time: 60 Attestation: I have personally provided critical care time. Time includes review of lab data, radiology results, discussion with consultants, and monitoring for potential decompensation. Intervention performed as documented. Discharge Plan Discharge Clinical Impression: Chronic lung disease, Hypoxic respiratory failure Patient Disposition: Admitted As Inpatient Prescriptions: No Action (DME) lancets [FreeStyle Lancets] 28 gauge misc See Rx Instructions .ROUTE .MEDSUPPLY Qty: 100 1RF Rx Instructions: Use to check blood sugar daily or if symptomatic hypo/hypergylcemia (DME) 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 meter [FreeStyle Lite Meter] Kit See Rx Instructions .ROUTE .MEDSUPPLY Qty: 1 0RF Rx Instructions: Use to check blood sugar daily or if symptomatic for hypo/hyperglycemia (DME) FreeStyle Lite Strips Strip See Rx Instructions .ROUTE .MEDSUPPLY Qty: 100 1RF Rx Instructions: Use to check blood sugar daily or if symptomatic hypo/hypergylcemia ipratropium bromide 0.02 % solution 2.5 ml inhalation Q6H PRN (Reason: for wheezing) 30 Days Qty: 187.5 6RF calcium carbonate-vitamin D3 500 mg-10 mcg (400 unit) tablet 1 tab PO BID 30 Days Qty: 60 6RF furosemide 20 mg tablet 20 mg PO DAILY Qty: 90 3RF losartan 50 mg tablet 50 mg PO DAILY Qty: 90 1RF sertraline 100 mg tablet 100 mg PO DAILY Qty: 90 0RF acetaminophen 650 mg tablet extended release 650 mg PO Q12H PRN (Reason: pain) 30 Days Qty: 60 0RF aspirin 81 mg tablet,delayed release (DR/EC) 81 mg PO DAILY 90 Days Qty: 90 1RF gabapentin 800 mg tablet 800 mg PO QID Qty: 120 0RF tizanidine 4 mg tablet 4 mg PO Q12H PRN (Reason: muscle spasm) 30 Days Qty: 60 0RF Rx Instructions: do not take concurrently with famotidine theophylline 400 mg tablet extended release 24 hr 400 mg PO BID 90 Days Qty: 180 4RF ibuprofen 800 mg tablet 800 mg PO BID PRN (Reason: pain) Qty: 60 0RF Rx Instructions: please use sparingly due to diabetes albuterol sulfate 90 mcg/actuation HFA aerosol inhaler 2 puff inhalation QID Qty: 8.5 3RF cefuroxime axetil 500 mg tablet 500 mg PO BID Qty: 10 0RF dexlansoprazole [Dexilant] 60 mg capsule,biphase delayed releas 60 mg PO DAILY@0630 Stiolto Respimat 2.5-2.5 mcg/actuation mist 2 puff inhalation DAILY Qty: 4 6RF prednisone 10 mg tablet 10 mg PO DIRECTED Qty: 70 0RF Rx Instructions: Take 4 pills daily for 7 days, then go down by 1 pill every 7 days Print Language: [place]
[2024-02-13 01:36] LABS: MANUAL DIFF FLAG NO
[2024-02-13 01:37] LABS: Basophils Percent Auto 0.2 % (0-2); Eosinophils Percent Auto 0.2 % (0-4); Hematocrit 39.4 % (37.0-47.0); Hemoglobin 12.3 g/dl (12.0-16.0); Imm Gran Abs Auto 0.08 X10*3/uL (0.00-0.03); Imm Gran Pct Auto 0.7 % (0.0-0.4); Lymphocytes Absolute Auto 1.3 X10*3/uL (1.2-4.9); Lymphocytes Percent Auto 10.5 % (20-40); Mean Corpuscular HGB Conc 31.2 g/dl (31.0-35.0); Mean Corpuscular Hemoglobin 24.8 pg (27.0-33.0); Mean Corpuscular Volume 79.4 fL (80.0-98.0); Mean Platelet Volume 9.1 fL (9.4-12.3); Monocytes Absolute Auto 0.5 X10*3/uL (0.1-1.2); Monocytes Percent Auto 3.8 % (2-11); Neutrophils Absolute Auto 10.3 x10*3/uL (2.0-8.3); Neutrophils Percent Auto 84.6 % (45-73); Platelet Count 352 X10*3/uL (160-400); Red Blood Count 4.96 X10*6/uL (4.20-5.50); Red Cell Distribution Width 16.9 % (11.0-16.0); White Blood Count 12.2 X10*3/uL (4.8-10.8)
[2024-02-13 01:42] LABS: Venous Blood Gas Refer to POC result
[2024-02-13 01:43] LABS: VBG Base Excess 3.9 mmol/L; VBG HCO3 27 mmol/L (22-26); VBG pCO2 39 mmHg; VBG pH 7.45 (7.32-7.43); VBG pO2 87 mmHg
[2024-02-13] MEDS: 0.9 % Sodium Chloride 1,500 ML 999 ML IVCONT (01:47)
[2024-02-13] MEDS: cefTRIAXone sodium 1 GM in 0.9 % Sodium Chloride 50 ML IV (01:55)
--- NOTE | 2024-02-13 01:58 | PC.NURSE ---
pt biba from home a&ox4, respirations even and unlabored. pt reporting onset of x3 days of increasing shortness of breath, pt reports she has hx of copd and asthma. ems gave pt magnesium, solumedrol and a duo neb prior to arrival. pt was sating 85% on ems arrival, 96% on 6L. upon arrival pt 88% on room air, placed on 2L nasal cannula for comfort. 20G placed by ems in right ac, 20G placed in left wrist, labs obtained and sent. pt sinus tach on tele 100-101 bpm. pt medicated per mar. assisted on bed parikh, urine sample obtained.
[2024-02-13 02:00] LABS: Alanine Aminotransferase 14 U/L (0-31); Albumin Level 3.9 g/dL (3.5-5.0); Alkaline Phosphatase 89 U/L (39-117); Anion Gap 18 (12-20); Aspartate Amino Transferase 14 U/L (5-31); Bilirubin Total 0.2 mg/dL (0.0-1.0); Blood Urea Nitrogen 14 mg/dL (9-16); Calcium 9.9 mg/dL (8.4-10.2); Carbon Dioxide 22 mmol/L (22-29); Chloride 103 mmol/L (96-108); Estimated Glomerular Filt Rate > 60; Glucose Random 239 mg/dL (60-115); Potassium 5.5 mmol/L (3.3-5.1); Sodium 137 mmol/L (135-145); Total Protein 6.8 g/dL (6.5-8.0)
[2024-02-13 02:01] LABS: Troponin-I High Sensitivity 19.9 ng/L (<3.5-17.0)
[2024-02-13 02:05] LABS: Lactic Acid 2.1 mmol/L (0.5-2.0)
[2024-02-13 02:16] LABS: Influenza A PCR NEGATIVE (Negative); Influenza B PCR NEGATIVE (Negative); Resp Syncy Virus RNA Qual PCR NEGATIVE (Negative); SARS COV2 PCR INHOUSE NEGATIVE (Negative)
[2024-02-13] MEDS: Azithromycin 500 MG in 0.9 % Sodium Chloride 250 ML 125 MG IV ×2 (02:31→21:19)
--- NOTE | 2024-02-13 02:43 | PC.NURSE ---
pt noted to be de sating to 85% on room air, pt placed back on 2L nasal cannula.
--- NOTE | 2024-02-13 02:55 | P.HPHOSP_ITS ---
History of Present Illness Date of Service: 02/13/24 Chief Complaint: Dyspnea This is a 52-year-old female with pertinent history of COPD-asthma overlap syndrome not on home oxygen, HENRY on CPAP, [id number]-tvvmsyhbp diabetes mellitus, hypertension, gastroesophageal reflux disease, active tobacco use disorder, history of cocaine use, obesity who presents to the emergency department for evaluation of dyspnea. Patient states her symptoms started 3 days prior to presentation. She has been having cough with intermittent sputum production along with dyspnea which is worse with exertion. Has associated wheezing. No relief with home inhalers. Of note, patient was admitted on 01/13 with COPD exacerbation. No chest pain or palpitations. No fever, chills, chest discomfort, abdominal pain, changes in urinary or bowel habits. Does not use oxygen at home. Admits that she continues to smoke cigarettes daily In the emergency department, patient with wheezing despite multiple DuoNeb treatments. Also received IV steroids and requiring 2 L supplemental oxygen Review of Systems 2 Constitutional: Constitutional: Reports fatigue Cardiovascular: Cardiovascular: Reports dyspnea on exertion Respiratory: Respiratory: Reports cough, Reports dyspnea on exertion and Reports wheezing Gastrointestinal: Gastrointestinal: Reports no additional gastrointestinal complaints Genitourinary: Genitourinary: Reports no additional female genitourinary complaints Endocrine: Endocrine: Reports fatigue Allergic/Immunologic: Allergic/Immunologic: Reports wheezing [facility] Medical History COPD (chronic obstructive pulmonary disease) Diabetes mellitus COPD exacerbation Sleep apnea Crack cocaine use Hyperkalemia Acute exacerbation of COPD with asthma Metabolic acidosis Leukocytosis UTI (urinary tract infection) Acute respiratory failure with hypoxia Chest discomfort Chronic renal failure, stage 2 (mild) Acute and chronic respiratory failure with hypercapnia SOB (shortness of breath) Asthma Encounter for preoperative pulmonary examination Smoker Rotator cuff tendonitis GERD (gastroesophageal reflux disease) Chronic idiopathic constipation Bustos's esophagus Depression High triglycerides Gastroparesis Carpal tunnel syndrome of right wrist Nausea & vomiting Hernia Acute and chronic respiratory failure, unspecified whether with hypoxia or hypercapnia Respiratory failure HTN (hypertension) Obesity (BMI 30-39.9) Knee pain, bilateral Family History Father Heart disease HENRY (obstructive sleep apnea) Family history of breast cancer Mother Asthma Emphysema, unspecified Bronchitis Smoker Alcoholism Bone marrow disease Maternal Grandmother Diabetes Surgical History History of carpal tunnel release Hx of tubal ligation History of pubovaginal sling History of umbilical hernia repair Hx of section History of open reduction and internal fixation (ORIF) procedure Hx of cholecystectomy History of esophagogastroduodenoscopy (EGD) Social History Household Members: Family Household Members Other:: daughter Housing: House Are you a primary hospice care transitions coordinator to a significant other at home: No Do you presently have visiting nurse or other home services: No Unable to assess alcohol history related to: Unknown Alcohol intake: former Comment: Sleeping Patient Tobacco Use Status: Current everyday Tobacco user Tobacco use type: Cigarette Cigarette Packs Per Day: 1 Cigarettes Per Day: 20.0 Years Smoked: 48 Smoked in Last 30 Days: Yes e-Cigarette/Vaping Use: Never Used Second Hand Smoke Exposure: No Use of substances other than those prescribed or required for medical reasons: Yes Substance Use Type: Crack/Cocaine Substance Use Frequency: Monthly Advance Directives: Yes Advance Directives on File: Yes Advance Directives Date on File: 04/15/20 Do you have a plan to hurt others: No Plan Patient : No service: No Current occupational status: disabled 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 Meds Allergies Allergy/AdvReac Type Severity Reaction Status Date / Time doxycycline Allergy Severe Swelling Verified 02/13/24 01:16 varenicline [From CHANTIX] Allergy Severe ANAPHYLAXIS Verified 02/13/24 01:16 azithromycin Allergy Intermediate Rash Verified 02/13/24 01:16 barium sulfate Allergy Intermediate angioedema Verified 02/13/24 01:16 cetirizine Allergy Mild Rash Verified 02/13/24 01:16 famotidine Allergy Mild Rash Verified 02/13/24 01:16 linaclotide [Linzess] Allergy Mild Rash Verified 02/13/24 01:16 Active Medications: Current Medications Acetaminophen (Acetaminophen 325 Mg Tablet) 650 mg PO Q6H PRN PRN Reason: Pain, Mild (Pain Scale 1-3), fever or headache Calcium Carbonate (Calcium Carbonate 750 Mg Tab.Chew) 750 mg PO Q4H PRN PRN Reason: Heartburn Enoxaparin Sodium (Enoxaparin Sodium 40 Mg/0.4 Ml Syringe) 40 mg SUBCUT Q24H [facility] Sodium Chloride (Ns) 1,500 mls @ 999 mls/hr IVCONT .Q1H31M ONE Stop: 02/13/24 02:56 Last Admin: 02/13/24 01:47 Dose: 999 mls/hr Azithromycin 500 mg/ Sodium (Chloride) 250 mls @ 125 mls/hr IV ONCE ONE Stop: 02/13/24 03:25 Last Admin: 02/13/24 02:31 Dose: 125 mls/hr Magnesium Hydroxide (Milk Of Magnesia 30 Ml Oral.Susp) 30 ml PO DAILY PRN PRN Reason: Constipation Melatonin (Melatonin 3 Mg Tablet) 6 mg PO BEDTIME PRN PRN Reason: Insomnia Ondansetron HCl (Ondansetron Hcl 4 Mg/2 Ml Vial) 4 mg IVPUSH Q8H PRN PRN Reason: Nausea and Vomiting Sodium Chloride (0.9 % Sodium Chloride Flush 3 Ml Syringe) 3 ml IVFLUSH QSHIFT [facility] Home Medications ?Medication ?Instructions ?Recorded ?Confirmed ?Last Taken ?Type dexlansoprazole 60 mg 60 mg PO DAILY@0630 12/16/23 01/14/24 01/13/24 History capsule,biphase delayed release (Dexilant) Physical Exam 2 Vital Signs and Narrative: Vital Signs: Last Vital Signs Temp 98.7 F 02/13/24 02:37 Pulse 108 H 02/13/24 02:43 Resp 19 02/13/24 02:37 BP 136/88 02/13/24 02:37 Pulse Ox 85 L 02/13/24 02:43 O2 Del Method Room Air 02/13/24 02:43 BMI result Body Mass Index 19.2 Middle-aged female lying in bed in mild distress on supplemental O2 Neck supple, no JVD Regular rate and rhythm, S1-S2 heard Tachypnea with bilateral wheezing Abdomen soft nontender, no guarding, no rigidity Patient is awake, alert and oriented to self, place, time and person ; no focal motor deficit Psych: Normal mood No pedal edema Results Labs 02/13/24 01:28 02/13/24 01:28 Labs: Laboratory Results - last 24 hr 02/13/24 02/13/24 02/13/24 01:28 01:33 01:36 MCV 79.4 L MCH 24.8 L MCHC 31.2 RDW 16.9 H Plt Count 352 MPV 9.1 L Immature Gran % (Auto) 0.7 H Neut % (Auto) 84.6 H Lymph % (Auto) 10.5 L [place] % (Auto) 3.8 Eos % (Auto) 0.2 Baso % (Auto) 0.2 Lymph # (Auto) 1.3 [place] # (Auto) 0.5 Eos # (Auto) 0.0 Baso # (Auto) 0.0 Abs Immat Gran (auto) 0.08 H Absolute Neuts (auto) 10.3 H Absolute Nucleated RBC 0.000 Nucleated RBC % (auto) 0.0 VBG pH 7.45 H VBG pCO2 39 VBG pO2 87 VBG HCO3 27 H VBG O2 Saturation 99.0 VBG Base Excess 3.9 Anion Gap 18 Estim Creat Clear Calc 51.0 Estimated GFR > 60 Random Glucose 239 H Lactic Acid 2.1 H* Calcium 9.9 Total Bilirubin 0.2 AST 14 ALT 14 Alkaline Phosphatase 89 Troponin I High Sens 19.9 H Total Protein 6.8 Albumin 3.9 Influenza Type A (PCR) NEGATIVE Influenza Type B (PCR) NEGATIVE RSV RNA Qual (PCR) NEGATIVE SARS-CoV-2 RNA (RT-PCR) NEGATIVE Imaging Radiologist's Impressions: Impressions Chest X-Ray 02/13/24 01:43 IMPRESSION: No acute cardiopulmonary process. Assessment and Plan (1) Hypoxic respiratory failure: Status: Acute Plan This is a 52-year-old female with pertinent history of COPD-asthma overlap syndrome not on home oxygen, HENRY on CPAP, rlu-knnmcif-lrnftuivr diabetes mellitus, hypertension, gastroesophageal reflux disease, active tobacco use disorder, history of cocaine use, obesity who presents to the emergency department for evaluation of dyspnea. #. Acute hypoxic respiratory failure due to acute exacerbation of COPD-asthma overlap syndrome: Will admit patient with supplemental oxygen, scheduled and p.r.n. DuoNebs. IV steroids. Initiating azithromycin for pleiotropic effect. Continue home inhaler #. Tobacco use disorder: Counseled regarding cessation. Nicotine patch while in the hospital #. HENRY: Continue CPAP at bedtime #. Llg-qziddef-myotxklma diabetes mellitus with hyperglycemia: Initiating Accu-Cheks with sliding scale insulin #. Hypertension: Continue home antihypertensives #. Gastroesophageal reflux disease: On famotidine Med rec pending DVT prophylaxis: Michellenox Full code Admit as inpatient and will require two night minimum hospital stay for supplemental oxygen, IV steroids (as above), which is not possible in a lesser acute setting. Quality Stroke Does the patient have a stroke diagnosis?: No VTE Prior VTE?: No VTE Risk Level:: Medical - moderate - high VTE Device Contraindication: Treatment Not Indicated VTE Drug Contraindication: N/A - Med Ordered
[2024-02-13 03:10] LABS: Troponin-I High Sensitivity 21.3 ng/L (<3.5-17.0)
[2024-02-13 03:39] LABS: Reflex Lactate? Lactic Acid Added
[2024-02-13] MEDS: Nicotine 14 MG PATCH.TD24 TRANSDERMA (04:27)
--- NOTE | 2024-02-13 04:53 | PC.NURSE ---
pt declining bedtime cpap at this time, per RT keep pt on 2L nasal cannula and titrate per o2 needs. dr.peters love.
[2024-02-13 05:15] LABS: Basophils Percent Auto 0.2 % (0-2); Hematocrit 38.9 % (37.0-47.0); Hemoglobin 11.7 g/dl (12.0-16.0); Imm Gran Abs Auto 0.09 X10*3/uL (0.00-0.03); Imm Gran Pct Auto 0.8 % (0.0-0.4); Lymphocytes Absolute Auto 0.6 X10*3/uL (1.2-4.9); Lymphocytes Percent Auto 4.9 % (20-40); MANUAL DIFF FLAG SCAN; Mean Corpuscular HGB Conc 30.1 g/dl (31.0-35.0); Mean Corpuscular Hemoglobin 24.6 pg (27.0-33.0); Mean Corpuscular Volume 81.7 fL (80.0-98.0); Mean Platelet Volume 9.2 fL (9.4-12.3); Monocytes Absolute Auto 0.2 X10*3/uL (0.1-1.2); Monocytes Percent Auto 1.8 % (2-11); Neutrophils Absolute Auto 10.4 x10*3/uL (2.0-8.3); Neutrophils Percent Auto 92.3 % (45-73); Platelet Count 327 X10*3/uL (160-400); Red Blood Count 4.76 X10*6/uL (4.20-5.50); SCAN SMEAR FLAG 1; White Blood Count 11.3 X10*3/uL (4.8-10.8)
[2024-02-13 05:22] LABS: ~Lactic Acid-LAB USE ONLY 1.1 mmol/L (0.5-2.0)
--- NOTE | 2024-02-13 05:32 | PC.NURSE ---
pt requesting duoneb at this time, respiratory called to bedside for treatment.
[2024-02-13 05:39] LABS: Anion Gap 12 (12-20); Blood Urea Nitrogen 15 mg/dL (9-16); Calcium 8.4 mg/dL (8.4-10.2); Carbon Dioxide 23 mmol/L (22-29); Chloride 109 mmol/L (96-108); Estimated Glomerular Filt Rate > 60; Glucose Random 277 mg/dL (60-115); Potassium 4.6 mmol/L (3.3-5.1); SLIDE REVIEW VERIFIED; Sodium 139 mmol/L (135-145)
[2024-02-13] MEDS: Albuterol/Iprat 2.5/0.5MG 3 ML AMPUL.NEB INHALE ×6 (05:40→21:09)
--- NOTE | 2024-02-13 06:14 | PC.NURSE ---
aware of pt blood pressure at this time, plan for no new orders.
[2024-02-13 07:17] LABS: Glucose, Whole Blood 276 mg/dL (60-115)
[2024-02-13] MEDS: Insulin Lispro 100 UNIT/ML 3 ML VIAL SUBCUT ×3 (07:18→18:04)
--- NOTE | 2024-02-13 08:21 | PHA.MEDREC ---
Addendum entered by Moira Zaman RPh 02/13/24 08:47: reviewed by [facility] Original Note: Pharmacy Consult ? Medication Reconciliation Pharmacy has completed the medication reconciliation. Patient was very tired and kept dozing off when I asked her about her meds but every time she woke back up she was able to verify her medications, dose and how she is taking them.
[2024-02-13] MEDS: 0.9 % Sodium Chloride Flush 3 ML SYRINGE IVFLUSH ×2 (09:01→20:24)
[2024-02-13] MEDS: Enoxaparin Sodium 30 MG/0.3 ML SYRINGE SUBCUT (09:01)
[2024-02-13] MEDS: methylPREDNISolone Sod Succ 40 MG/ML VIAL IVPUSH ×2 (09:01→20:19)
--- NOTE | 2024-02-13 09:37 | MHC.CM.PN ---
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 Joe Hale and Patient will need assist with transport to home.
[2024-02-13 13:30] LABS: Glucose, Whole Blood 268 mg/dL (60-115)
--- NOTE | 2024-02-13 13:51 | PM.EVENT ---
Event Note Date of Service: 02/13/24 Event Note: Seen and examined this morning Follow-up for acute respiratory failure due to acute COPD/asthma exacerbation Breathing improving This is a 52-year-old female with pertinent history of COPD-asthma overlap syndrome not on home oxygen, HENRY on CPAP, giw-ivwhsxl-cwjwapchp diabetes mellitus, hypertension, gastroesophageal reflux disease, active tobacco use disorder, history of cocaine use, obesity who presents to the emergency department for evaluation of dyspnea. #. Acute hypoxic respiratory failure due to acute exacerbation of COPD-asthma overlap syndrome: continue supplemental oxygen, wean as tolerated scheduled and p.r.n. DuoNebs, IV steroids, IV azithromycin for pleiotropic effect Chest x-ray negative for pneumonia Continue theophylline Blood cultures pending Acute lactic acidosis. Likely due to multiple breathing treatments and not due to sepsis Hyperkalemia Labs hemolyzed, falsely elevated repeat within normal limits #. Tobacco use disorder: Counseled regarding cessation. NRT #. HENRY: Continue CPAP at bedtime. Has not been using home machine due to difficulty with settings. Missed outpatient sleep study. Plan for inpatient sleep study this evening. #. Tyu-pfxqruk-hgrvwnhgj diabetes mellitus with hyperglycemia: due to steroids Initiating Accu-Cheks with sliding scale insulin Hold glipizide #. Gastroesophageal reflux disease: On PPI DVT prophylaxis-Lovenox Time Spent With Patient Time: Total time managing care of this patient today ____ minutes.
[2024-02-13 16:52] LABS: Glucose, Whole Blood 253 mg/dL (60-115)
[2024-02-13] MEDS: Gabapentin 400 MG CAPSULE 800 MG PO (18:16)
[2024-02-13] MEDS: TiZANidine HCL 4 MG TABLET PO (18:16)
--- NOTE | 2024-02-13 18:23 | PC.NURSE ---
Pt rated her pain as an 8 but requested gabapentin to help her pain- it is the only thing that works
--- NOTE | 2024-02-13 19:10 | PC.NURSE ---
MD aware of slightly elevated blood pressure. will continue to monitor
[2024-02-13] MEDS: Labetalol HCL 100 MG/20 ML VIAL 10 MG IVPUSH (19:37)
--- NOTE | 2024-02-13 19:50 | PC.NURSE ---
Dr. Meliton mcghee Labetalol for previously noted high blood pressure. Given withouth problems will continue to monitor pressures.
[2024-02-13 20:22] LABS: Glucose, Whole Blood 138 mg/dL (60-115)
[2024-02-13] MEDS: Theophylline Anhydrous ER 400 MG TAB.ER.24H PO (20:24)
[2024-02-14 03:37] VITALS: PULSE 90; RESP 18; O2SAT 95
[2024-02-14] MEDS: Albuterol/Iprat 2.5/0.5MG 3 ML AMPUL.NEB INHALE ×2 (03:37→07:45)
[2024-02-14 03:51] VITALS: BP 145/81; PULSE 93; RESP 18; TEMP 36.1; O2SAT 93
[2024-02-14] MEDS: Omeprazole 40 MG CAPSULE.DR PO (06:31)
[2024-02-14 07:05] VITALS: BP 172/90; PULSE 86; RESP 16; TEMP 36; O2SAT 94
[2024-02-14 07:12] LABS: Glucose, Whole Blood 279 mg/dL (60-115)
[2024-02-14 07:45] VITALS: PULSE 76; RESP 20; O2SAT 91
--- NOTE | 2024-02-14 07:47 | PC.RT ---
pt copntinues top refuse to weR CPAP. SLEEP STUDY DONE LAST NIGHT. WILL CONTINUE TO HAVE PT WEAR CPAP SHE SNORES CONSTANTLY. pT TO FOLLOW UP WITH dR. Hutchison ON saturday
[2024-02-14] MEDS: Nicotine 14 MG PATCH.TD24 TRANSDERMA (07:56)
[2024-02-14] MEDS: Insulin Lispro 100 UNIT/ML 3 ML VIAL SUBCUT (07:57)
[2024-02-14] MEDS: Theophylline Anhydrous ER 400 MG TAB.ER.24H PO (07:57)
[2024-02-14] MEDS: methylPREDNISolone Sod Succ 40 MG/ML VIAL IVPUSH (07:57)
[2024-02-14] MEDS: Sertraline HCL 100 MG TABLET PO (07:57)
[2024-02-14] MEDS: Furosemide 20 MG TABLET PO (07:57)
[2024-02-14] MEDS: Aspirin Enteric Coated 81 MG TABLET.DR PO (07:57)
[2024-02-14] MEDS: 0.9 % Sodium Chloride Flush 3 ML SYRINGE IVFLUSH (07:58)
[2024-02-14] MEDS: Enoxaparin Sodium 40 MG/0.4 ML SYRINGE SUBCUT (07:58)
[2024-02-14] MEDS: Nystatin Powder 15 GM BOTTLE 1 APPL TOPICAL (09:53)
[2024-02-14 11:08] LABS: Glucose, Whole Blood 108 mg/dL (60-115)
--- NOTE | 2024-02-14 11:21 | PM.DS ---
DS: Providers Provider Date of Service: 02/14/24 Date of admission: 02/13/24 02:54 Date of discharge: 02/14/24 Primary care physician: Joe Hale [facility] Attending physician on discharge: Burt Rodríguez Discharging clinician: Vandana Cline DS: Diagnosis Discharge Diagnosis (1) Hypoxic respiratory failure: Status: Acute DS: Summary Hospital Course Hospital Course: From H&P on the day of admission This is a 52-year-old female with pertinent history of COPD-asthma overlap syndrome not on home oxygen, HENRY on CPAP, fca-vcoedst-liisytdaf diabetes mellitus, hypertension, gastroesophageal reflux disease, active tobacco use disorder, history of cocaine use, obesity who presents to the emergency department for evaluation of dyspnea. Patient states her symptoms started 3 days prior to presentation. She has been having cough with intermittent sputum production along with dyspnea which is worse with exertion. Has associated wheezing. No relief with home inhalers. Of note, patient was admitted on 01/13 with COPD exacerbation. No chest pain or palpitations. No fever, chills, chest discomfort, abdominal pain, changes in urinary or bowel habits. Does not use oxygen at home. Admits that she continues to smoke cigarettes daily In the emergency department, patient with wheezing despite multiple DuoNeb treatments. Also received IV steroids and requiring 2 L supplemental oxygen Acute hypoxic respiratory failure due to acute exacerbation of COPD-asthma overlap syndrome: was treated with scheduled and p.r.n. DuoNebs, IV steroids, IV azithromycin for pleiotropic effect. Chest x-ray negative for pneumonia. Continued on baseline theophylline. She was weaned off of supplemental oxygen, her respiratory symptoms resolved and she is eager to return home. Blood cultures remained negative. She will be discharged home with course of oral steroids. She was encouraged to avoid tobacco use and all other inhaled substances. Dose of gabapentin was decreased from 4 times a day to 3 times a day as needed. Acute lactic acidosis. Likely due to multiple breathing treatments and not due to sepsis Hyperkalemia Labs hemolyzed, falsely elevated. repeat within normal limits Tobacco use disorder: Counseled regarding cessation. NRT will be provided upon discharge HENRY: Continue CPAP at bedtime. Has not been using home machine due to difficulty with settings. Missed outpatient sleep study, had inpatient sleep study during hospitalization. We will need outpatient follow-up with pulmonology for results. She has scheduled outpatient follow-up with pulmonology on SaturdayFebruary 16. Wvs-ixfpegc-qcftuesgt diabetes mellitus with hyperglycemia: Resume home dose of glipizide upon discharge Gastroesophageal reflux disease: On PPI HTN patient states she no longer takes losartan because she has not seen her PCP. will send prescription for losartan. Recommend outpatient follow-up with PCP Time Attestation Discharge Coordination Time (in mins): 36 Quality: Safe Use of Opioids Does Pt have an Active Cancer Diagnosis on the Problem List?: No Quality: Stroke Does the patient have a stroke diagnosis?: No Physical Exam Vital Signs: Vital Signs: Last Vital Signs Temp 96.8 F 02/14/24 07:05 Pulse 76 02/14/24 07:45 Resp 20 02/14/24 07:45 BP 172/90 H 02/14/24 07:05 Pulse Ox 94 02/14/24 07:05 O2 Del Method Room Air 02/14/24 07:05 O2 Flow Rate 2 02/13/24 10:06 BMI result Body Mass Index 19.2 Const: General: cooperative, comfortable, no acute distress, alert and awake Nutritional Appearance: average body habitus Orientation/consciousness: patient oriented x3 Resp: Effort & Inspection: normal respiratory effort, able to speak in complete sentences, no respiratory distress and no use of accessory muscles Auscultation: clear to auscultation bilaterally Cardio: Rate: regular rate GI: Inspection: No distended Palpation (GI): Soft to palpation and nontender Neuro: General: patient oriented x3, moves all extremities and CN's II-XI intact bilaterally Extrem: General: Yes no pedal edema DS: Data Data Completed and Pending Completed studies during hospitalization [Text1]: Procedures Assistance with Respiratory Ventilation, Less than 24 Consecutive Hours, Continuous Positive Airway Pressure (01/14/24) Insertion of Endotracheal Airway into Trachea, Via Natural or Artificial Opening (11/03/20) Insertion of Infusion Device into Superior Vena Cava, Percutaneous Approach (11/03/20) Respiratory Ventilation, Less than 24 Consecutive Hours (11/03/20) Labs on day of discharge: Laboratory Results - last 24 hr 02/13/24 02/13/24 02/13/24 13:27 16:49 20:11 POC Glucose 268 H 253 H 138 H 02/14/24 02/14/24 07:07 11:03 POC Glucose 279 H 108 Preliminary micro results at discharge 02/13/24 01:39 Blood Culture - Preliminary Blood - Venous No growth after 24 hours. 02/13/24 01:36 Blood Culture - Preliminary Blood - Venous No growth after 24 hours. Discharge Plan Discharge Anticipated Discharge Date/Time: 02/14/24 10:37 Patient Disposition: Home Health Service Discharge Diagnosis: acute respiratory failure with hypoxia acute exacerbation of copd/asthma Referrals: Joe Hale FNP-BC [Primary Care Provider] - 1 Week Discharge Medications: New nicotine 14 mg/24 hr Patch 24 Hour 14 mg transdermal DAILY Qty: 28 0RF prednisone 20 mg tablet 40 mg PO DAILY 5 Days Qty: 10 0RF losartan 25 mg tablet 25 mg PO DAILY 90 Days Qty: 90 0RF Continued calcium carbonate-vitamin D3 500 mg-10 mcg (400 unit) tablet 1 tab PO BID 30 Days Qty: 60 6RF furosemide 20 mg tablet 20 mg PO DAILY Qty: 90 3RF sertraline 100 mg tablet 100 mg PO DAILY Qty: 90 0RF acetaminophen 650 mg tablet extended release 650 mg PO Q12H PRN (Reason: pain) 30 Days Qty: 60 0RF aspirin 81 mg tablet,delayed release (DR/EC) 81 mg PO DAILY 90 Days Qty: 90 1RF tizanidine 4 mg tablet 4 mg PO Q12H PRN (Reason: muscle spasm) 30 Days Qty: 60 0RF Rx Instructions: do not take concurrently with famotidine theophylline 400 mg tablet extended release 24 hr 400 mg PO BID 90 Days Qty: 180 4RF ibuprofen 800 mg tablet 800 mg PO BID PRN (Reason: pain) Qty: 60 0RF Rx Instructions: please use sparingly due to diabetes dexlansoprazole [Dexilant] 60 mg capsule,biphase delayed releas 60 mg PO DAILY@0630 glipizide 5 mg tablet 5 mg PO DAILY albuterol sulfate 90 mcg/actuation HFA aerosol inhaler 2 puff inhalation QID PRN (Reason: SOB/Wheezing) ipratropium bromide 0.02 % solution 2.5 ml inhalation Q6H PRN (Reason: Wheezing) Stiolto Respimat 2.5-2.5 mcg/actuation mist 2 puff inhalation DAILY Qty: 4 6RF Changed gabapentin 800 mg tablet 800 mg PO TID PRN (Reason: Pain) Qty: 1 0RF No Action (DME) lancets [FreeStyle Lancets] 28 gauge misc See Rx Instructions .ROUTE .MEDSUPPLY Qty: 100 1RF Rx Instructions: Use to check blood sugar daily or if symptomatic hypo/hypergylcemia (DME) 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 meter [FreeStyle Lite Meter] Kit See Rx Instructions .ROUTE .MEDSUPPLY Qty: 1 0RF Rx Instructions: Use to check blood sugar daily or if symptomatic for hypo/hyperglycemia (DME) FreeStyle Lite Strips Strip See Rx Instructions .ROUTE .MEDSUPPLY Qty: 100 1RF Rx Instructions: Use to check blood sugar daily or if symptomatic hypo/hypergylcemia Discharge Orders: Discharge Order (Routine); Ordered 02/14/24 Ordered By: Vandana Cline Activity on Discharge: As tolerated Stand Alone Forms: Patient Portal Discharge page Print Language: Croatian Care Plan Goals: See below Health Concerns: Acute respiratory failure due to acute exacerbation of asthma/COPD Tobacco use disorder Plan of Treatment: Complete course of steroids as prescribed Recommend to avoid tobacco and other inhaled substances Take all medications as prescribed Recommend to reduce dose of gabapentin from 4 times a day as needed to 3 times a day as needed Do not take Zanaflex and gabapentin at the same time Resume taking losartan for blood pressure control you will be discharged home with visiting nurses to assist with medication management Assessment: See discharge summary
--- NOTE | 2024-02-14 11:34 | P.F2F_ITS ---
Service Date Service Date: 02/14/24 Encounter Date of encounter: 02/14/24 Reasons for Services Signs and symptoms assessed: Needs assisted for medication management and monitoring of oxygen saturation Reason for assisted: medication management Overseeing Care: Joe Hale Homebound: Leaving the home is medically contraindicated at this time without the asist of a device and/or another person due th the listed conditions above and below. Reason homebound: other Certification: Based on the above findings, I certify that this patient is confined to the home and needs intermittent assisted care, physical therapy and/or speech therapy, or continues to need occupational therapy. The patient is under my care, and I have initiated the establishment of the plan of care. The patient will be followed by a physician who will periodically review the plan of care. Time Spent With Patient Time: Total time managing care of this patient today ____ minutes.
--- NOTE | 2024-02-14 15:37 | MHC.CM.PN ---
PT DISCHARGED HOME TODAY WITH [facility] ORDERS REFERRAL PLACED TO [facility], HOWEVER THEY ARE STILL WORKING ON FINDING SOMEONE TO PROVIDE ONGOING ORDERS PTS PCP OFFICE SAID IT SHOULD BE PULMONOLOGY. CM WILL UPDATE PT VIA T/C ONCE [facility] PLAN IS FINALIZED PT WAS TRANSPORTED [facility]
== END 2024-02-14 13:40 | disposition home health service (06) | DRG 140 ==
LOC: HO.ED 02:48 → HO.EDOVER 02:59 → HO.S3 19:22
PROVIDERS: Admitting Provider Student in an Organized Health Care Education/Training Program; Emergency Provider Emergency Medicine; PCP Nurse Practitioner Family; Visit Provider Physician Assistant Medical
DX: J44.1 Chronic obstructive pulmonary disease with (acute) exacerbation (principal); E87.21 Acute metabolic acidosis; J45.901 Unspecified asthma with (acute) exacerbation; I10 Essential (primary) hypertension; E11.65 Type 2 diabetes mellitus with hyperglycemia; K21.9 Gastro-esophageal reflux disease without esophagitis; F17.210 Nicotine dependence, cigarettes, uncomplicated; G47.33 Obstructive sleep apnea (adult) (pediatric); Z71.6 Tobacco abuse counseling; Z20.822 Contact with and (suspected) exposure to COVID-19; Z79.82 Long term (current) use of aspirin; Z79.84 Long term (current) use of oral hypoglycemic drugs; Z79.899 Other long term (current) drug therapy
CPT/HCPCS: 0241U; 36415; 71045; 80048; 80053; 82803; 82947; 83605; 84484; 85025; 87040; 93005; 94640; 99285; J0456; J0696; J1650; J1920; J2919

== ENCOUNTER → 2024-02-13 02:54 | Outpatient (BNV) | payer OTHER, SELFPAY | PROVIDERS: Admitting Provider Student in an Organized Health Care Education/Training Program; Emergency Provider Emergency Medicine; Visit Provider Student in an Organized Health Care Education/Training Program | DX: J96.01 Acute respiratory failure with hypoxia (principal); J44.1 Chronic obstructive pulmonary disease with (acute) exacerbation | CPT/HCPCS: 99223; 99239; 99499; G0180 ==

== ENCOUNTER 2024-02-17 09:09 | Outpatient (AMB) | payer OTHER, SELFPAY ==
[2024-02-17 09:37] VITALS: BP 112/74; PULSE 102; O2SAT 91; BMI 37.2
--- NOTE | 2024-02-17 09:37 | MHC.OFFVIS ---
Vital Signs 02/17/24 09:37 Height 4 ft 11 in Weight 184 lb 1.376 oz BMI 37.2 BP 112/74 Blood Pressure Location Rt brachial Position Sitting Pulse 102 H Pulse Source Pulse Oximeter Pulse Oximetry (%) 91 L Oxygen Delivery Method Room Air Intake Visit Reasons: SV congestion,prod cough Allergies doxycycline Allergy (Severe, Verified 02/17/24 09:40) Swelling varenicline [From CHANTIX] Allergy (Severe, Verified 02/17/24 09:40) ANAPHYLAXIS azithromycin Allergy (Intermediate, Verified 02/17/24 09:40) Rash barium sulfate Allergy (Intermediate, Verified 02/17/24 09:40) angioedema cetirizine Allergy (Mild, Verified 02/17/24 09:40) Rash famotidine Allergy (Mild, Verified 02/17/24 09:40) Rash linaclotide [Linzess] Allergy (Mild, Verified 02/17/24 09:40) Rash HPI HPI SV congestion,prod cough: Details: Marika is a pleasant 53-year-old female, active 40+ pack-year smoker, with underlying obesity, severe HENRY on CPAP, followed for dyspnea on exertion and moderate COPD. At baseline she is moderately controlled on Stiolto, theophylline, duo nebs, and albuterol MDI. with reasonable baseline control of her symptoms, however, she does get frequent exacerbations. She is under the care of Dr. Kessler and presents today for an acute visit. She was admitted to [facility] 02/12-02/13 for COPD exacerbation treated with IV steroids, nebs and azithromycin (developed rash) and supplemental oxygen. She was discharged with 5 day prednisone course and weaned off supplemental oxygen. She reports symptoms are minimally improved and continues with significant wheezing, chest congestion with difficulty expectorating and dyspnea on exertion. [facility] Medical History COPD (chronic obstructive pulmonary disease) Diabetes mellitus COPD exacerbation Sleep apnea Crack cocaine use Hyperkalemia Acute exacerbation of COPD with asthma Metabolic acidosis Leukocytosis UTI (urinary tract infection) Acute respiratory failure with hypoxia Chest discomfort Chronic renal failure, stage 2 (mild) Acute and chronic respiratory failure with hypercapnia SOB (shortness of breath) Asthma Encounter for preoperative pulmonary examination Smoker Rotator cuff tendonitis GERD (gastroesophageal reflux disease) Chronic idiopathic constipation Bustos's esophagus Depression High triglycerides Gastroparesis Carpal tunnel syndrome of right wrist Nausea & vomiting Hernia Acute and chronic respiratory failure, unspecified whether with hypoxia or hypercapnia Respiratory failure HTN (hypertension) Obesity (BMI 30-39.9) Knee pain, bilateral Surgical History History of carpal tunnel release Hx of tubal ligation History of pubovaginal sling History of umbilical hernia repair Hx of section History of open reduction and internal fixation (ORIF) procedure Hx of cholecystectomy History of esophagogastroduodenoscopy (EGD) Family History Father Heart disease HENRY (obstructive sleep apnea) Family history of breast cancer Mother Asthma Emphysema, unspecified Bronchitis Smoker Alcoholism Bone marrow disease Maternal Grandmother Diabetes Social History Household Members: Family Household Members Other:: daughter Housing: Apartment Are you a primary health care marketing manager to a significant other at home: No Do you presently have visiting nurse or other home services: 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) Unable to assess alcohol history related to: Unknown Alcohol intake: former Comment: Sleeping Patient Tobacco Use Status: Current everyday Tobacco user Tobacco use type: Cigarette Cigarette Packs Per Day: 0.5 Cigarettes Per Day: 10.0 Years Smoked: 48 e-Cigarette/Vaping Use: Never Used Second Hand Smoke Exposure: No Substance Use Type: Crack/Cocaine Advance Directives Date on File: 04/15/20 service: No Current occupational status: disabled 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 Review of Systems Const Denies chills, Denies excessive sweating, Denies fever(s), Denies headache(s) and Denies night sweats Eyes Denies dry eyes, Denies irritation and Denies itchy eyes ENT Reports Normal hearing present, Denies headache(s), Denies nasal congestion, Denies nasal discharge, Denies post nasal drip and Denies sore throat Card Denies chest pain, Denies chest pain at rest, Denies chest pain with activity, Denies claudication and Denies leg edema Resp Denies excessive phlegm production, Denies pain on inspiration, Denies pain with cough and Denies stridor Musc Denies myalgias Neuro Reports Normal hearing present and Denies headache(s) Endo Denies excessive sweating José/Lymph Denies lymphadenopathy Aller/Immun Denies itchy eyes and Denies seasonal rhinorrhea Physical Exam Vital Signs: Last Vital Signs Pulse 102 H 02/17/24 09:37 BP 112/74 02/17/24 09:37 Pulse Ox 91 L 02/17/24 09:37 Oxygen Delivery Method Room Air 02/17/24 09:37 BMI result Body Mass Index 37.2 Const General: cooperative, no acute distress, well developed and alert Nutritional Appearance: obese Orientation/consciousness: patient oriented x3 Limitations: no limitations HEENT Head: Yes normal to inspection, Yes normocephalic and Yes atraumatic Ears: hearing grossly normal bilaterally and external ears normal Eyes General: appearance normal, both eyes and all related structures Eyelids: Yes eyelids normal Sclerae: sclerae normal EOM: EOMs intact bilaterally Neck Neck: Yes normal visual inspection and Yes no lymphadenopathy Lymphatic: no lymphadenopathy noted Chest Chest palpation & inspection: normal inspection of the chest Resp Effort & Inspection: normal respiratory effort, able to speak in complete sentences, no stridor, not tachypneic, no tripod positioning and no use of accessory muscles Auscultation: wheezes expiratory wheezes and lung sounds not diminished Cardio Jugular venous distension: no JVD Rate: regular rate Rhythm: regular rhythm Skin Other: warm, dry General skin exam: no rashes or lesions noted Neuro General: patient oriented x3 Cranial nerves: Yes Normal hearing present Cognition (Neuro): normal cognition Gait exam (Neuro): Normal gait present Extrem General: Yes normal to inspection, Yes capillary refill normal, Yes no clubbing, cyanosis or edema and Yes no pedal edema Psych Appearance: grossly normal Speech and movement: Normal speech and movement present and Clear speech present Affect: normal affect Attitude: cooperative Thought process: Normal thought process present Thought content: Normal thought content present Insight: Good insight present (Psych) Judgement: Good judgement present (Psych) Assessment & Plan Assessment & Plan (1) COPD (chronic obstructive pulmonary disease): Code(s): J44.9 - Chronic obstructive pulmonary disease, unspecified Category: Medical (2) HENRY (obstructive sleep apnea): Code(s): G47.33 - Obstructive sleep apnea (adult) (pediatric) Category: Medical (3) COPD exacerbation: Code(s): J44.1 - Chronic obstructive pulmonary disease with (acute) exacerbation Category: Medical Plan Marika presents after hospital discharge for COPD exacerbation. She continues with significant wheezing, chest congestion, difficulty expectorating and chills. Denies fevers. Offered duoneb in office however patient declined. Will treat with prednisone and vantin, azithromycin and doxycycline allergies. She is aware to call if symptoms do not improve or if worsen seek emergent care. All questions were answered and patient is in agreement of plan. Will follow up with Dr. Kessler for appointment at the end of the month or sooner if needed. Medications: New prednisone see taper instructions Take 4 pills daily for 5 days, then go down by 1 pill every 5 days; 20 days 50 tabs 10 mg PO DIRECTED 50 tabs 0RF Refilled amoxicillin-pot clavulanate 875-125 mg 1 tab PO BID 10 days 20 tabs 0RF Coding Level of Care Code Est Pt Level 4 (33572) Diagnoses Chronic obstructive pulmonary disease with acute lower respiratory infection J44.9 HENRY (obstructive sleep apnea) G47.33 COPD exacerbation J44.1
== END 2024-02-17 10:05 | disposition home or self-care (01) ==
PROVIDERS: PCP Nurse Practitioner Family; Visit Provider Nurse Practitioner Family
DX: J44.9 Chronic obstructive pulmonary disease, unspecified (principal); G47.33 Obstructive sleep apnea (adult) (pediatric); J44.1 Chronic obstructive pulmonary disease with (acute) exacerbation
CPT/HCPCS: 99214

== ENCOUNTER → 2024-02-17 09:09 | Outpatient (BNVA) | payer OTHER, SELFPAY | PROVIDERS: PCP Nurse Practitioner Family; Visit Provider Nurse Practitioner Family | DX: J44.1 Chronic obstructive pulmonary disease with (acute) exacerbation (principal); F17.210 Nicotine dependence, cigarettes, uncomplicated; E66.9 Obesity, unspecified; G47.33 Obstructive sleep apnea (adult) (pediatric); Z99.81 Dependence on supplemental oxygen | CPT/HCPCS: 99212 ==

== ENCOUNTER 2024-02-25 10:24 | Outpatient (AMB) | payer OTHER, SELFPAY ==
[2024-02-25 10:29] VITALS: BP 111/64; PULSE 109; O2SAT 95; BMI 35.8
--- NOTE | 2024-02-25 10:29 | A.OFFVIS_ITS ---
Vital Signs 02/25/24 10:29 Height 4 ft 11 in Weight 177 lb 7.554 oz BMI 35.8 BP 111/64 Blood Pressure Location Rt brachial Position Sitting Pulse 109 H Pulse Source Doppler Pulse Oximetry (%) 95 Oxygen Delivery Method Room Air Intake Visit Reasons: Asthma Allergies doxycycline Allergy (Severe, Verified 02/17/24 09:40) Swelling varenicline [From CHANTIX] Allergy (Severe, Verified 02/17/24 09:40) ANAPHYLAXIS azithromycin Allergy (Intermediate, Verified 02/17/24 09:40) Rash barium sulfate Allergy (Intermediate, Verified 02/17/24 09:40) angioedema cetirizine Allergy (Mild, Verified 02/17/24 09:40) Rash famotidine Allergy (Mild, Verified 02/17/24 09:40) Rash linaclotide [Linzess] Allergy (Mild, Verified 02/17/24 09:40) Rash HPI HPI Asthma: Details: 53-year-old lady, active 40+ pack-year smoker, with underlying obesity, severe HENRY, followed for dyspnea on exertion and moderate COPD. She continues to use Stiolto, theophylline, duo nebs, and albuterol MDI with reasonable baseline control of her symptoms, however, she does get frequent exacerbations. She has completed her sleep study that shows AHI of 60. Her sleep apnea symptoms on control on CPAP but patient had significant improvement in symptom control when she used BiPAP in-hospital. She does complain of pharyngitis and productive cough. [facility] Medical History COPD (chronic obstructive pulmonary disease) Diabetes mellitus COPD exacerbation Sleep apnea Crack cocaine use Hyperkalemia Acute exacerbation of COPD with asthma Metabolic acidosis Leukocytosis UTI (urinary tract infection) Acute respiratory failure with hypoxia Chest discomfort Chronic renal failure, stage 2 (mild) Acute and chronic respiratory failure with hypercapnia SOB (shortness of breath) Asthma Encounter for preoperative pulmonary examination Smoker Rotator cuff tendonitis GERD (gastroesophageal reflux disease) Chronic idiopathic constipation Bustos's esophagus Depression High triglycerides Gastroparesis Carpal tunnel syndrome of right wrist Nausea & vomiting Hernia Acute and chronic respiratory failure, unspecified whether with hypoxia or hypercapnia Respiratory failure HTN (hypertension) Obesity (BMI 30-39.9) Knee pain, bilateral Surgical History History of carpal tunnel release Hx of tubal ligation History of pubovaginal sling History of umbilical hernia repair Hx of section History of open reduction and internal fixation (ORIF) procedure Hx of cholecystectomy History of esophagogastroduodenoscopy (EGD) Family History Father Heart disease HENRY (obstructive sleep apnea) Family history of breast cancer Mother Asthma Emphysema, unspecified Bronchitis Smoker Alcoholism Bone marrow disease Maternal Grandmother Diabetes Social History Household Members: Family Household Members Other:: daughter Housing: Apartment Are you a primary patient care director to a significant other at home: No Do you presently have 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) Unable to assess alcohol history related to: Unknown Alcohol intake: former Comment: Sleeping Patient Tobacco Use Status: Current everyday Tobacco user Tobacco use type: Cigarette Cigarette Packs Per Day: 0.5 Cigarettes Per Day: 10.0 Years Smoked: 48 e-Cigarette/Vaping Use: Never Used Second Hand Smoke Exposure: No Substance Use Type: Crack/Cocaine Advance Directives Date on File: 04/15/20 service: No Current occupational status: disabled 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 Review of Systems Const Denies daytime sleepiness, Denies excessive sweating, Reports fatigue, Denies fever(s), Reports lethargy, Denies malaise, Denies night sweats, Reports snoring and Denies weight loss Eyes Denies blurry vision and Denies itchy eyes ENT Denies nasal congestion, Denies post nasal drip, Denies sinus pain, Denies sinus pressure and Denies other ( Thrush) Card Denies chest pain, Denies pedal edema, Denies dyspnea, Denies orthopnea and Denies paroxysmal nocturnal dyspnea Resp Reports cough, Denies hemoptysis, Reports excessive phlegm production, Denies dyspnea, Reports snoring and Denies wheezing GI Denies abdominal pain and Denies heartburn Musc Denies myalgias, Denies arthralgias and Denies joint swelling Skin/Breast Denies rash Neuro Denies memory loss and Denies seizure-like activity Psych Denies abnormal sleep pattern, Denies anxiety and Denies memory loss Endo Denies excessive sweating, Reports fatigue and Denies heat intolerance José/Lymph Denies easy bruising Aller/Immun Denies itchy eyes, Denies seasonal rhinorrhea and Denies wheezing Physical Exam Vital Signs: Last Vital Signs Pulse 109 H 02/25/24 10:29 BP 111/64 02/25/24 10:29 Pulse Ox 95 02/25/24 10:29 Oxygen Delivery Method Room Air 02/25/24 10:29 BMI result Body Mass Index 35.8 Const General: no acute distress and alert Nutritional Appearance: obese Orientation/consciousness: Other orientation findings ( oriented) HEENT Head: Yes atraumatic Eyes General: appearance normal, both eyes and all related structures Sclerae: sclerae normal EOM: EOMs intact bilaterally Neck Neck: Yes supple Lymphatic: no lymphadenopathy noted Resp Effort & Inspection: normal respiratory effort and no use of accessory muscles Auscultation: clear to auscultation bilaterally Cardio Rate: regular rate Rhythm: regular rhythm Heart sounds: no gallops, no murmurs and no rubs Skin General skin exam: other ( warm) Extrem General: No clubbing, No cyanosis and No edema Assessment & Plan Assessment & Plan (1) COPD (chronic obstructive pulmonary disease): Code(s): J44.9 - Chronic obstructive pulmonary disease, unspecified Category: Medical Plan: Reason baseline control on current regimen Stiolto, 3 failing, duo nebs, and albuterol MDI. Continue current regimen. Will treat exacerbation with a course of Levaquin. No wheezing, no systemic glucocorticoids indicated at this time. (2) HENRY (obstructive sleep apnea): Code(s): G47.33 - Obstructive sleep apnea (adult) (pediatric) Category: Medical Plan: Suboptimal control on CPAP. Repeat sleep study with AHI of 60. Significantly improved symptom control on BiPAP hospital. Underlying COPD with hyperventilation. Will switch CPAP to BiPAP 06/04. (3) Nocturnal hypoxemia: Code(s): G47.34 - Idiopathic sleep related nonobstructive alveolar hypoventilation Category: Medical Plan: Will switch patient to BiPAP and reassess. Medications: New levofloxacin 500 mg PO DAILY 7 tabs 0RF Discontinued amoxicillin-pot clavulanate 875-125 mg Discontinued Reason: Doctor's Order 1 tab PO BID 10 days 20 tabs 0RF Coding Level of Care Code Est Pt Level 4 (62730) Complex EM visit Add On G2211 Diagnoses Chronic obstructive pulmonary disease with acute lower respiratory infection J44.9 HENRY (obstructive sleep apnea) G47.33 Nocturnal hypoxemia G47.34
== END 2024-02-25 10:41 | disposition home or self-care (01) ==
PROVIDERS: PCP Nurse Practitioner Family; Visit Provider Internal Medicine Pulmonary Disease
DX: J44.9 Chronic obstructive pulmonary disease, unspecified (principal); G47.33 Obstructive sleep apnea (adult) (pediatric); G47.34 Idiopathic sleep related nonobstructive alveolar hypoventilation
CPT/HCPCS: 99214; G2211

== ENCOUNTER → 2024-02-25 10:24 | Outpatient (BNVA) | payer OTHER, SELFPAY | PROVIDERS: PCP Nurse Practitioner Family; Visit Provider Internal Medicine Pulmonary Disease | DX: J44.9 Chronic obstructive pulmonary disease, unspecified (principal); G47.33 Obstructive sleep apnea (adult) (pediatric); G47.34 Idiopathic sleep related nonobstructive alveolar hypoventilation | CPT/HCPCS: 99212 ==

== ENCOUNTER 2024-04-05 01:53 | Inpatient (IN) | payer OTHER, SELFPAY ==
[2024-04-05] VITALS (18 sets, daily range): BP systolic 133–171; BP diastolic 69–94; PULSE 55–105; RESP 15–26; TEMP 36.4–36.9; O2SAT 92–100; BMI 35.7
--- NOTE | 2024-04-05 | ECG_ITS ---
Test Reason : SOB Blood Pressure : / mmHG Vent. Rate : 096 BPM Atrial Rate : 108 BPM P-R Int : 000 ms QRS Dur : 076 ms QT Int : 352 ms P-R-T Axes : 000 206 046 degrees QTc Int : 444 ms Normal sinus rhythm with PAC's Right superior axis deviation Low voltage QRS Possible Inferior infarct , age undetermined Abnormal ECG When compared with ECG of 13-FEB-2024 01:28, Premature atrial complexes are no longer Present Referred By: Generic ED Physician Electronically Signed By:ROXANNE FENG
--- NOTE | ~2024-04-05 | XR_ITS ---
EXAMINATION: XR CHEST CLINICAL INFORMATION: Shortness of breath. Rule out pneumonia. COMPARISON: Chest radiograph 02/13/2024. TECHNIQUE: Frontal view of the chest was obtained. FINDINGS: Normal appearance of the cardiomediastinal structures. Mild blunting of the right costophrenic sulcus. No pneumothoraces. Mild right base vague airspace opacities. XR/XR chest 1V IMPRESSION: *Findings suspicious for right base pneumonia. Mild right basilar airspace opacities and a trace right pleural effusion are present. Findings are new compared with 02/13/2024. Electronically signed by: Noman Lopez MD 04/05/2024 03:03 AM EDT
--- NOTE | 2024-04-05 02:09 | ED.SOB ---
HPI - SOB/Dyspnea General Chief Complaint: Dyspnea Stated Complaint: difficulty breathing x1week Time Seen by Provider: 04/05/24 02:09 Source: patient Mode of arrival: EMS Limitations: no limitations History of Present Illness ED Provider: Dr. Trev Clay HPI Narrative: 53-year-old female with a history diabetes mellitus, COPD with asthma overlap syndrome not on home oxygen, GERD, cocaine use disorder, obstructive sleep apnea on BiPAP, gastroparesis who presents emergency department for evaluation of shortness of breath x2 days. The patient states that she has been using her inhaler and her nebulizers more frequently and despite this she was felt worse. She states that this evening her shortness of breath eyes got worse so she called an ambulance. She was given a nebulizer treatment EN route with minimal improvement of her symptoms. She states she was a frequent nonproductive cough which is gotten progressively worse. She has associated abdominal pain and chest pain which is worse with coughing. She denied fever but did have chills. She denied myalgias arthralgias. Patient was admitted from 02/13/20242023 until 02/14/2024 and treated for acute respiratory failure with hypoxia and acute exacerbation of COPD/asthma Related Data Home Medications ?Medication ?Instructions ?Recorded ?Confirmed dexlansoprazole 60 mg 60 mg PO DAILY@0630 12/16/23 02/13/24 capsule,biphase delayed release (Dexilant) glipizide 5 mg tablet 5 mg PO DAILY 02/13/24 02/13/24 ipratropium bromide 0.02 % 2.5 ml inhalation Q6H PRN Wheezing 02/13/24 02/13/24 solution for inhalation Previous Rx's ?Medication ?Instructions ?Recorded lancets 28 gauge (FreeStyle #100 ea 01/20/21 Lancets) 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 meter (FreeStyle #1 ea 03/01/22 Lite Meter kit) blood sugar diagnostic (FreeStyle #100 ea 09/16/22 Lite Strips) calcium carbonate 500 mg-vitamin 1 tab PO BID 30 days #60 tabs 12/09/23 D3 10 mcg (400 unit) tablet furosemide 20 mg tablet 20 mg PO DAILY #90 tabs 12/09/23 sertraline 100 mg tablet 100 mg PO DAILY #90 tabs 12/09/23 acetaminophen 650 mg 650 mg PO Q12H PRN pain 30 days 01/01/24 tablet,extended release #60 tabs aspirin 81 mg tablet,delayed 81 mg PO DAILY 90 days #90 tabs 01/01/24 release tiotropium 2.5 mcg-olodaterol 2.5 2 puff inhalation DAILY #4 grams 01/20/24 mcg/actuation mist for inhalation (Stiolto Respimat) theophylline 400 mg 400 mg PO BID 90 days #180 tabs 01/27/24 tablet,extended release 24 hr losartan 25 mg tablet 25 mg PO DAILY 90 days #90 tabs 02/14/24 nicotine 14 mg/24 hr daily 14 mg transdermal DAILY #28 ea 02/14/24 transdermal patch prednisone 20 mg tablet 40 mg (2 x 20 mg) PO DAILY 5 days 02/14/24 #10 tabs tizanidine 4 mg tablet 4 mg PO Q12H PRN muscle spasm 30 02/28/24 days #60 tabs ibuprofen 800 mg tablet 800 mg PO BID PRN pain #60 tabs 03/05/24 amoxicillin 875 mg-potassium 1 tab PO BID #14 tabs 03/13/24 clavulanate 125 mg tablet gabapentin 800 mg tablet 800 mg PO TID PRN Pain 30 days #90 03/15/24 tabs albuterol sulfate 90 mcg/actuation 2 puff inhalation Q6H PRN for 03/17/24 aerosol inhaler (Ventolin HFA) wheezing #18 ea prednisone 10 mg tablet 10 mg PO DIRECTED #50 tabs 04/01/24 Allergies Allergy/AdvReac Type Severity Reaction Status Date / Time doxycycline Allergy Severe Swelling Verified 04/05/24 02:40 varenicline [From CHANTIX] Allergy Severe ANAPHYLAXIS Verified 04/05/24 02:40 azithromycin Allergy Intermediate Rash Verified 04/05/24 02:40 barium sulfate Allergy Intermediate angioedema Verified 04/05/24 02:40 cetirizine Allergy Mild Rash Verified 04/05/24 02:40 famotidine Allergy Mild Rash Verified 04/05/24 02:40 linaclotide [Linzess] Allergy Mild Rash Verified 04/05/24 02:40 Review of Systems Review of Systems: Yes all other systems are reviewed and are negative PMFSH Past Medical History Medical History (Updated 04/05/24 @ 04:57 by Trev Clay MD) Hypoxic respiratory failure Nocturnal hypoxemia HENRY (obstructive sleep apnea) COPD (chronic obstructive pulmonary disease) Diabetes mellitus COPD exacerbation Crack cocaine use Hyperkalemia Metabolic acidosis Leukocytosis Chest discomfort Chronic renal failure, stage 2 (mild) SOB (shortness of breath) Asthma Smoker Rotator cuff tendonitis GERD (gastroesophageal reflux disease) Chronic idiopathic constipation Bustos's esophagus Depression High triglycerides Gastroparesis Carpal tunnel syndrome of right wrist Nausea & vomiting Hernia Acute and chronic respiratory failure, unspecified whether with hypoxia or hypercapnia HTN (hypertension) Obesity (BMI 30-39.9) Knee pain, bilateral Surgical History (Updated 03/27/24 @ 09:41 by Katherine Wilburn PA-C) History of cholecystectomy (~1988) History of carpal tunnel release Hx of tubal ligation History of pubovaginal sling (~2015) History of umbilical hernia repair (~2001) Hx of section History of open reduction and internal fixation (ORIF) procedure History of esophagogastroduodenoscopy (EGD) Family History Family History Father Heart disease HENRY (obstructive sleep apnea) Family history of breast cancer Mother Asthma Emphysema, unspecified Bronchitis Smoker Alcoholism Bone marrow disease Maternal Grandmother Diabetes Social History Social History Household Members: Family Household Members Other:: daughter Housing: Apartment Are you a primary intensive care unit nurse to a significant other at home: No Do you presently have visiting nurse or other home services: No ([employer]) Unable to assess alcohol history related to: Unknown Alcohol intake: former Comment: Sleeping Patient Tobacco Use Status: Current everyday Tobacco user Tobacco use type: Cigarette Cigarette Packs Per Day: 0.5 Cigarettes Per Day: 10.0 Years Smoked: 48 Smoked in Last 30 Days: Yes e-Cigarette/Vaping Use: Never Used Second Hand Smoke Exposure: No Use of substances other than those prescribed or required for medical reasons: Yes Substance Use Type: Crack/Cocaine Advance Directives: No Advance Directives Information Provided: No Advance Directives Date on File: 04/15/20 Patient : No service: No Current occupational status: disabled 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 Physical Exam Vital Signs: Vital Signs: Last Vital Signs Temp 97.9 F 04/05/24 02:08 Pulse 82 04/05/24 03:01 Resp 24 H 04/05/24 03:14 BP 144/81 H 04/05/24 02:36 Pulse Ox 92 04/05/24 02:36 O2 Del Method Room Air 04/05/24 02:36 O2 Flow Rate 8 04/05/24 02:08 BMI result Body Mass Index 35.7 Vital signs revealed an elevated respiratory rate of 22 and an elevated blood pressure of 171 over 94. O2 saturation was 100% on OxyMask at 8 liters/minute. Exam: General: Awake, in moderate respiratory distress, breathing through pursed lips and using accessory muscles Head: Normocephalic, atraumatic EENT: PERRL, Lids normal, sclera normal, conjunctiva normal, nose normal , ears normal, throat without erythema or exudates Neck: Supple, no adenopathy Lung: Breath sounds are symmetric bilaterally, diffuse wheezing, no rales, no rhonchi Chest: symmetric movement, nontender Heart: regular rate and rhythm, normal S1, S2 no murmurs or rubs Abdomen: soft, non-tender, nondistended, normal bowel sounds Back: no vertebral tenderness, no CVAT Extremities: no deformities, moves all extremities symmetrically Neuro: Awake, alert, oriented, normal speech, cranial nerves intact, moves all extremities symmetrically Psych: Pleasant, cooperative Medications Administered Discontinued Medications Generic Name Dose Route Start Last Admin Trade Name Freq PRN Reason Stop Dose Admin Albuterol Sulfate 5 mg/ 0 mg 04/05/24 02:48 04/05/24 03:01 Albuterol/Ipratropium 3 ml INHALE 04/05/24 02:49 1 each ONCE ONE Administration Gabapentin 800 mg 04/05/24 03:23 04/05/24 03:38 Gabapentin 600 Mg Tablet PO 04/05/24 03:24 800 mg ONCE ONE Administration Methylprednisolone Sodium Succinate 125 mg 04/05/24 02:20 04/05/24 02:50 Methylprednisolone Sod Succ 125 Mg/2 Ml Vial IVPUSH 04/05/24 02:21 125 mg ONCE ONE Administration Medical Decision Making Medical Decision Making MDM Narrative: 53-year-old female with a history diabetes mellitus, COPD with asthma overlap syndrome not on home oxygen, GERD, cocaine use disorder, obstructive sleep apnea on BiPAP, gastroparesis who presents emergency department for evaluation of shortness of breath x2 days, frequent, nonproductive cough, with worsening symptoms prior to coming to emergency department and came to the emergency department ambulance and did receive a nebulizer treatment and oxygen in route.. The patient states that she has been using her inhaler and her nebulizers more frequently and despite this she was felt worse. Vital signs revealed an elevated blood pressure and elevated respiratory rate. Patient did appear to be in moderate respiratory distress breathing through pursed lips in using accessory muscles. Lung exam did reveal diffuse wheezing. 04:42 Differential diagnosis: ?Includes but is not limited to exacerbation of chronic lung disease, pneumonia, bronchitis, bronchospasm, anemia, electrolyte abnormalities Patient was initially treated with the following: Bronchodilator protocol, Solu-Medrol 125 mL IV, BiPAP Course: 04:42 My interpretation patient's laboratory evaluation is as follows: WBC elevated 13,800 with a normal differential. Microcytic anemia with an H&H of 11.0 and 35.9. MCV was 77.7. Venous blood gas revealed a normal pH of 7.40 with an elevated pCO2 of 54 and and an elevated bicarb of 34-consistent with chronic COPD. Lactic acid was normal at 1.4. BNP elevated 131. Troponin was elevated 34.1-she has had similar elevations in the past, repeat troponin is due at 06:00 hours. Chest x-ray was interpreted by the radiologist as suspicious for right base pneumonia. Given the patient's nonproductive cough, worsening shortness of breath and possible pneumonia. Patient was allergic to azithromycin and doxycycline. Patient will need community-acquired pneumonia coverage as well as Pseudomonas coverage therefore I ordered cefepime 2 g IV. Patient did receive albuterol 7.5 mg with ipratropium 0.5 mg nebulized solution with improvement of her shortness of breath. She was also placed on her outpatient BiPAP. I did discuss admission over tiger text with the covering hospitalist, Dr. West. Admission/Observation Consideration of admission/observation: Escalation of care including admission/observation considered (Yes) Lab Data MDM Lab Attestation statement: I reviewed the patient's lab results. 04/05/24 02:58 04/05/24 02:58 Labs: Lab Results 04/05/24 04/05/24 Range/Units 02:58 03:26 WBC 13.8 H (4.8-10.8) X10*3/uL RBC 4.62 (4.20-5.50) X10*6/uL Hgb 11.0 L (12.0-16.0) g/dl Hct 35.9 L (37.0-47.0) % MCV 77.7 L (80.0-98.0) fL MCH 23.8 L (27.0-33.0) pg MCHC 30.6 L (31.0-35.0) g/dl RDW 17.2 H (11.0-16.0) % Plt Count 400 (160-400) X10*3/uL MPV 8.8 L (9.4-12.3) fL Immature Gran % (Auto) 0.4 (0.0-0.4) % Neut % (Auto) 51.2 (45-73) % Lymph % (Auto) 40.0 (20-40) % [place] % (Auto) 7.8 (2-11) % Eos % (Auto) 0.2 (0-4) % Baso % (Auto) 0.4 (0-2) % Lymph # (Auto) 5.5 H (1.2-4.9) X10*3/uL [place] # (Auto) 1.1 (0.1-1.2) X10*3/uL Eos # (Auto) 0.0 (0.0-0.4) X10*3/uL Baso # (Auto) 0.1 (0.0-0.2) X10*3/uL Abs Immat Gran (auto) 0.06 H (0.00-0.03) X10*3/uL Absolute Neuts (auto) 7.1 (2.0-8.3) x10*3/uL Absolute Nucleated RBC 0.000 (0.0-0.012) X10*3/uL Nucleated RBC % (auto) 0.0 (0.0-0.2) /100WBC Smear Tech's Comments VERIFIED VBG pH 7.40 (7.32-7.43) VBG pCO2 54 mmHg VBG pO2 49 mmHg VBG HCO3 34 H (22-26) mmol/L VBG O2 Saturation 78.0 % VBG Base Excess 8.4 mmol/L Sodium 142 (135-145) mmol/L Potassium 3.6 D (3.3-5.1) mmol/L Chloride 103 (96-108) mmol/L Carbon Dioxide 28 (22-29) mmol/L Anion Gap 15 (12-20) BUN 19 H (9-16) mg/dL Creatinine 0.80 (0.5-1.4) mg/dL Estim Creat Clear Calc 72.8 Estimated GFR > 60 Random Glucose 101 (60-115) mg/dL Lactic Acid 1.4 (0.5-2.0) mmol/L Calcium 9.3 D (8.4-10.2) mg/dL Total Bilirubin 0.1 (0.0-1.0) mg/dL AST 8 (5-31) U/L ALT 7 (0-31) U/L Alkaline Phosphatase 85 (39-117) U/L Troponin I High Sens 24.1 H (<3.5-17.0) ng/L B-Natriuretic Peptide 131 H (<100) pg/mL Total Protein 6.5 (6.5-8.0) g/dL Albumin 3.7 (3.5-5.0) g/dL Lipase 41 (8-78) U/L Influenza Type A (PCR) NEGATIVE (Negative) Influenza Type B (PCR) NEGATIVE (Negative) RSV RNA Qual (PCR) NEGATIVE (Negative) SARS-CoV-2 RNA (RT-PCR) NEGATIVE (Negative) Independent Interpretation I performed an independent interpretation of an: EKG and Plain X-Ray Interpretation: My interpretation the patient's 12 EKG is as follows: Sinus rhythm with PACs, short ID interval, normal QRS and QTC interval, no ST segment elevation, no ST segment depression, Q-wave in lead 3. My independent interpretation of the patient's chest x-ray is as follows: Right lower lobe infiltrate Radiology Impression Discussion of test interpretation with radiology: I have reviewed the radiologist's reading. Radiologist Impression: XR chest 1V IMPRESSION: *Findings suspicious for right base pneumonia. Mild right basilar airspace opacities and a trace right pleural effusion are present. Findings are new compared with 02/13/2024. Electronically signed by: Noman Lopez MD 04/05/2024 03:03 AM EDT Dictated By: Noman Lopez MD Critical Care Time Critical Care Time Critical Care Time: Yes Total Critical Care Time: 35 Attestation: Critical Care: The patient was critically ill with a high probability of imminent or life threatening deterioration. I spent greater than 30 minutes of discontinuous time evaluating the patient,delivering critical care at the bedside, discussing and evaluating pertinent data with consultants. Critical care time does not include time spent performing separately billable procedures or teaching. Total time spent performing critical care was 35 minutes. Discharge Plan Discharge Clinical Impression: Asthma exacerbation Pneumonia Qualifiers: Laterality: right Lung location: lower lobe of lung Patient Disposition: Admitted As Inpatient Print Language: Burkinan
[2024-04-05] MEDS: methylPREDNISolone Sod Succ 125 MG/2 ML VIAL IVPUSH (02:50)
[2024-04-05] MEDS: Albuterol Sulfate 5 MG, Albuterol/Iprat 2.5/0.5MG 3 ML 3 ML INHALE (03:01)
[2024-04-05 03:24] LABS: Basophils Absolute Auto 0.1 X10*3/uL (0.0-0.2); Basophils Percent Auto 0.4 % (0-2); Eosinophils Percent Auto 0.2 % (0-4); Hematocrit 35.9 % (37.0-47.0); Imm Gran Abs Auto 0.06 X10*3/uL (0.00-0.03); Imm Gran Pct Auto 0.4 % (0.0-0.4); Lymphocytes Absolute Auto 5.5 X10*3/uL (1.2-4.9); MANUAL DIFF FLAG SCAN; Mean Corpuscular HGB Conc 30.6 g/dl (31.0-35.0); Mean Corpuscular Hemoglobin 23.8 pg (27.0-33.0); Mean Corpuscular Volume 77.7 fL (80.0-98.0); Mean Platelet Volume 8.8 fL (9.4-12.3); Monocytes Absolute Auto 1.1 X10*3/uL (0.1-1.2); Monocytes Percent Auto 7.8 % (2-11); Neutrophils Absolute Auto 7.1 x10*3/uL (2.0-8.3); Neutrophils Percent Auto 51.2 % (45-73); Platelet Count 400 X10*3/uL (160-400); Red Blood Count 4.62 X10*6/uL (4.20-5.50); Red Cell Distribution Width 17.2 % (11.0-16.0); SCAN SMEAR FLAG 1; White Blood Count 13.8 X10*3/uL (4.8-10.8)
[2024-04-05 03:28] LABS: Venous Blood Gas Refer to POC result
[2024-04-05 03:30] LABS: VBG Base Excess 8.4 mmol/L; VBG HCO3 34 mmol/L (22-26); VBG pCO2 54 mmHg; VBG pO2 49 mmHg
[2024-04-05] MEDS: Gabapentin 600 MG TABLET 800 MG PO (03:38)
[2024-04-05 03:42] LABS: SLIDE REVIEW VERIFIED
[2024-04-05 03:49] LABS: B Type Natriuretic Peptide 131 pg/mL (<100); Lactic Acid 1.4 mmol/L (0.5-2.0)
[2024-04-05 03:52] LABS: Alanine Aminotransferase 7 U/L (0-31); Albumin Level 3.7 g/dL (3.5-5.0); Alkaline Phosphatase 85 U/L (39-117); Anion Gap 15 (12-20); Aspartate Amino Transferase 8 U/L (5-31); Bilirubin Total 0.1 mg/dL (0.0-1.0); Blood Urea Nitrogen 19 mg/dL (9-16); Calcium 9.3 mg/dL (8.4-10.2); Carbon Dioxide 28 mmol/L (22-29); Chloride 103 mmol/L (96-108); Creatinine Clr Calc Pharmacy 72.8; Estimated Glomerular Filt Rate > 60; Glucose Random 101 mg/dL (60-115); Lipase 41 U/L (8-78); Potassium 3.6 mmol/L (3.3-5.1); Sodium 142 mmol/L (135-145); Total Protein 6.5 g/dL (6.5-8.0)
[2024-04-05 03:58] LABS: Troponin-I High Sensitivity 24.1 ng/L (<3.5-17.0)
[2024-04-05 04:35] LABS: Influenza A PCR NEGATIVE (Negative); Influenza B PCR NEGATIVE (Negative); Resp Syncy Virus RNA Qual PCR NEGATIVE (Negative); SARS COV2 PCR INHOUSE NEGATIVE (Negative)
[2024-04-05] MEDS: cefEPime HCl 2 GM in 0.9 % Sodium Chloride 50 ML IV (06:01)
[2024-04-05] MEDS: 0.9 % Sodium Chloride 1,000 ML 150 ML IV (06:11)
--- NOTE | 2024-04-05 06:18 | PC.NURSE ---
Pt asked to be taken off cpap and use supplemental oxygen via nasal cannula at this time
[2024-04-05 07:37] LABS: Troponin-I High Sensitivity 18.8 ng/L (<3.5-17.0)
[2024-04-05] MEDS: Albuterol/Iprat 2.5/0.5MG 3 ML AMPUL.NEB INHALE ×4 (08:09→20:39)
[2024-04-05] MEDS: Furosemide 20 MG/2 ML VIAL IVPUSH (08:11)
--- NOTE | 2024-04-05 08:56 | PHA.MEDREC ---
Addendum entered by Paul Nolan 04/05/24 09:23: reviewed Original Note: Pharmacy Consult ? Medication Reconciliation Pharmacy has completed the medication reconciliation.
[2024-04-05] MEDS: methylPREDNISolone Sod Succ 40 MG/ML VIAL IVPUSH ×2 (09:15→23:00)
[2024-04-05] MEDS: Enoxaparin Sodium 40 MG/0.4 ML SYRINGE SUBCUT (09:15)
[2024-04-05] MEDS: Omeprazole 20 MG CAPSULE.DR PO (09:15)
--- NOTE | 2024-04-05 11:19 | PC.NURSE ---
Pt oxygen titrated to 1L, pt dipped into mid 80s. Placed back on 2L NC with good effect, O2 sat 93-95%.
--- NOTE | 2024-04-05 11:52 | P.HPHOSP_ITS ---
History of Present Illness Date of Service: 04/05/24 Attending physician on admission: Nasrin Burton Chief Complaint: sob 53y/o F with pmx diabetes mellitus, COPD with asthma overlap syndrome not on home oxygen, GERD, cocaine use disorder, obstructive sleep apnea on BiPAP, gastroparesis came to Ed for shortness of breath x2 days, nonproductive cough. Patient her inhaler and her nebulizers more frequently and despite this she was felt worse so decided to come to hospital- She was given a nebulizer treatment en route to ed with minimal improvement of her symptoms. She has associated abdominal pain and chest pain which is worse with coughing. She denied fever but did have chills. She denied myalgias arthralgias.patient says her sister has uri's like symptoms. as per ed nursing documentation-seems sats drops to 80's on 1 liter oxygen She was also admitted from 02/13/20242023 until 02/14/2024 and treated for acute respiratory failure with hypoxia and acute exacerbation of COPD/asthma ,she says her symptoms are similar to that time. labs,imaging , ekg reveiwed: leucocytosis seems chronic. cmp-negative , trops flat (24.1-18.8), ekg-poor baseline, seems similar to before. cxr-suspicious for right base pneumonia. Mild right basilar airspace opacities and a trace right pleural effusion are present. she received nebs,steriods in ed -still symptomatic ,requested admission for acute hypoxemic respiratory failure secondary toCOPD execerebation ,pneumonia . Review of Systems 2 Review of Systems: as above. Yes all other systems are reviewed and are negative FORMERLY [facility], [facility]–1983 Medical History Hypoxic respiratory failure Nocturnal hypoxemia HENRY (obstructive sleep apnea) COPD (chronic obstructive pulmonary disease) Diabetes mellitus COPD exacerbation Crack cocaine use Hyperkalemia Metabolic acidosis Leukocytosis Chest discomfort Chronic renal failure, stage 2 (mild) SOB (shortness of breath) Asthma Smoker Rotator cuff tendonitis GERD (gastroesophageal reflux disease) Chronic idiopathic constipation Bustos's esophagus Depression High triglycerides Gastroparesis Carpal tunnel syndrome of right wrist Nausea & vomiting Hernia Acute and chronic respiratory failure, unspecified whether with hypoxia or hypercapnia HTN (hypertension) Obesity (BMI 30-39.9) Knee pain, bilateral Family History Father Heart disease HENRY (obstructive sleep apnea) Family history of breast cancer Mother Asthma Emphysema, unspecified Bronchitis Smoker Alcoholism Bone marrow disease Maternal Grandmother Diabetes Surgical History History of cholecystectomy (~1988) History of carpal tunnel release Hx of tubal ligation History of pubovaginal sling (~2015) History of umbilical hernia repair (~2001) Hx of section History of open reduction and internal fixation (ORIF) procedure History of esophagogastroduodenoscopy (EGD) Social History Household Members: Family Household Members Other:: daughter Housing: Apartment Are you a primary director of primary care to a significant other at home: No Do you presently have visiting nurse or other home services: No ([employer]) Unable to assess alcohol history related to: Unknown Alcohol intake: former Comment: Sleeping Patient Tobacco Use Status: Current everyday Tobacco user Tobacco use type: Cigarette Cigarette Packs Per Day: 0.5 Cigarettes Per Day: 10.0 Years Smoked: 48 Smoked in Last 30 Days: Yes e-Cigarette/Vaping Use: Never Used Second Hand Smoke Exposure: No Use of substances other than those prescribed or required for medical reasons: Yes Substance Use Type: Crack/Cocaine Advance Directives: No Advance Directives Information Provided: No Advance Directives Date on File: 04/15/20 Nutrition Risks: No Nutritional Risk Patient : No service: No Current occupational status: disabled 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 Meds Allergies Allergy/AdvReac Type Severity Reaction Status Date / Time doxycycline Allergy Severe Swelling Verified 04/05/24 02:40 varenicline [From CHANTIX] Allergy Severe ANAPHYLAXIS Verified 04/05/24 02:40 azithromycin Allergy Intermediate Rash Verified 04/05/24 02:40 barium sulfate Allergy Intermediate angioedema Verified 04/05/24 02:40 cetirizine Allergy Mild Rash Verified 04/05/24 02:40 famotidine Allergy Mild Rash Verified 04/05/24 02:40 linaclotide [Linzess] Allergy Mild Rash Verified 04/05/24 02:40 Active Medications: Current Medications Acetaminophen (Acetaminophen 325 Mg Tablet) 650 mg PO Q6H PRN PRN Reason: Pain, Mild (Pain Scale 1-3), fever or headache Albuterol/Ipratropium (Albuterol/Iprat 2.5/0.5mg 3 Ml Ampul.Neb) 3 ml INHALE Q4H [facility] Last Admin: 04/05/24 11:27 Dose: 3 ml Albuterol/Ipratropium (Albuterol/Iprat 2.5/0.5mg 3 Ml Ampul.Neb) 3 ml INHALE Q3H PRN PRN Reason: sob Aspirin (Aspirin Enteric Coated 81 Mg Tablet.) 81 mg PO DAILY [facility] Calcium Carbonate (Calcium Carbonate 750 Mg Tab.Chew) 750 mg PO Q4H PRN PRN Reason: Heartburn Calcium Carbonate/Cholecalciferol (Calcium + Vitamin D 250 Mg Tablet) 250 mg PO BID [facility] Enoxaparin Sodium (Enoxaparin Sodium 40 Mg/0.4 Ml Syringe) 40 mg SUBCUT DAILY [facility] Last Admin: 04/05/24 09:15 Dose: 40 mg Furosemide (Furosemide 20 Mg Tablet) 20 mg PO DAILY [facility]; Protocol Glucose (Glucose Gel 15 Gm Gel..Gram.) 15 gm PO Q15M PRN; Protocol PRN Reason: per Hypoglycemia Standing Ord. Dextrose (D10) 250 mls @ 750 mls/hr IV Q15M PRN; Protocol PRN Reason: per Hypoglycemia Standing Ord. Insulin Human Lispro (Insulin Lispro 100 Unit/Ml 3 Ml Vial) 0 unit SUBCUT QIDACHS [facility]; Protocol Losartan Potassium (Losartan Potassium 25 Mg Tablet) 25 mg PO DAILY [facility]; Protocol Magnesium Hydroxide (Milk Of Magnesia 30 Ml Oral.Susp) 30 ml PO DAILY PRN PRN Reason: Constipation Melatonin (Melatonin 3 Mg Tablet) 6 mg PO BEDTIME PRN PRN Reason: Insomnia Methylprednisolone Sodium Succinate (Methylprednisolone Sod Succ 40 Mg/Ml Vial) 40 mg IVPUSH BID [facility] Last Admin: 04/05/24 09:15 Dose: 40 mg Nicotine (Nicotine 21 Mg Patch.Td24) 21 mg TRANSDERMA DAILY [facility] Omeprazole (Omeprazole 20 Mg Capsule.) 20 mg PO DAILY [facility] Last Admin: 04/05/24 09:15 Dose: 20 mg Sertraline HCl (Sertraline Hcl 100 Mg Tablet) 100 mg PO DAILY [facility] Sodium Chloride (0.9 % Sodium Chloride Flush 3 Ml Syringe) 3 ml IVFLUSH QSHIFT [facility] Last Admin: 04/05/24 08:13 Dose: Not Given Theophylline (Theophylline Anhydrous Er 400 Mg Tab.Er.24h) 400 mg PO BID [facility] Tizanidine HCl (Tizanidine Hcl 4 Mg Tablet) 4 mg PO Q12H PRN PRN Reason: muscle spasm Home Medications ?Medication ?Instructions ?Recorded ?Confirmed ?Last Taken ?Type dexlansoprazole 60 mg 60 mg PO DAILY@0630 12/16/23 04/05/24 04/04/24 History capsule,biphase delayed release (Dexilant) glipizide 5 mg tablet 5 mg PO DAILY 02/13/24 04/05/24 04/04/24 History ipratropium bromide 0.02 % 2.5 ml inhalation Q6H PRN Wheezing 02/13/24 04/05/24 02/12/24 History solution for inhalation nicotine 21 mg/24 hr daily 1 patch transdermal DAILY 04/05/24 04/05/24 04/04/24 History transdermal patch prednisone 10 mg tablet See Rx Instructions .Route .COMPLEX 04/05/24 04/05/24 04/04/24 History Physical Exam 2 Vital Signs and Narrative: Vital Signs: Last Vital Signs Temp 98.2 F 04/05/24 08:14 Pulse 92 04/05/24 11:27 Resp 17 04/05/24 11:27 BP 152/80 H 04/05/24 08:14 Pulse Ox 97 04/05/24 08:14 O2 Del Method Nasal Cannula 04/05/24 08:14 O2 Flow Rate 2 04/05/24 08:14 BMI result Body Mass Index 35.7 Appearance: Alert.? Oriented X3.?sob. Eyes: Pupils equal, round and reactive to light.? Sclera nonicteric.? ENT: Pharynx normal.? Moist mucous membranes. cvs: rrr, [id number] . res: air entry diminshed ,has exp wheezing b/l. abd: no rebound or guarding ,nt, bs present. ext pulses present , no cyanosis. neuro: axo3 , nonfocal. Results Labs 04/05/24 02:58 04/05/24 02:58 Labs: Laboratory Results - last 24 hr 04/05/24 04/05/24 04/05/24 02:58 03:26 07:08 MCV 77.7 L MCH 23.8 L MCHC 30.6 L RDW 17.2 H Plt Count 400 MPV 8.8 L Immature Gran % (Auto) 0.4 Neut % (Auto) 51.2 Lymph % (Auto) 40.0 [place] % (Auto) 7.8 Eos % (Auto) 0.2 Baso % (Auto) 0.4 Lymph # (Auto) 5.5 H [place] # (Auto) 1.1 Eos # (Auto) 0.0 Baso # (Auto) 0.1 Abs Immat Gran (auto) 0.06 H Absolute Neuts (auto) 7.1 Absolute Nucleated RBC 0.000 Nucleated RBC % (auto) 0.0 Smear Tech's Comments VERIFIED VBG pH 7.40 VBG pCO2 54 VBG pO2 49 VBG HCO3 34 H VBG O2 Saturation 78.0 VBG Base Excess 8.4 Anion Gap 15 Estim Creat Clear Calc 72.8 Estimated GFR > 60 Random Glucose 101 Lactic Acid 1.4 Calcium 9.3 D Total Bilirubin 0.1 AST 8 ALT 7 Alkaline Phosphatase 85 Troponin I High Sens 24.1 H 18.8 H B-Natriuretic Peptide 131 H Total Protein 6.5 Albumin 3.7 Lipase 41 Influenza Type A (PCR) NEGATIVE Influenza Type B (PCR) NEGATIVE RSV RNA Qual (PCR) NEGATIVE SARS-CoV-2 RNA (RT-PCR) NEGATIVE Imaging Radiologist's Impressions: Impressions Chest X-Ray 04/05/24 02:32 IMPRESSION: *Findings suspicious for right base pneumonia. Mild right basilar airspace opacities and a trace right pleural effusion are present. Findings are new compared with 02/13/2024. Electronically signed by: Noman Lopez MD 04/05/2024 03:03 AM EDT Assessment and Plan (1) Pneumonia: Qualifiers: Laterality: right Lung location: lower lobe of lung Pneumonia type: d ue to unspecified organism Qualified Code(s): J18.9 - Pneumonia, unspecified organism Status: Acute (2) COPD (chronic obstructive pulmonary disease): Qualifiers: COPD type: COPD with acute lower respiratory infection Qualified Code(s): J44.0 - Chronic obstructive pulmonary disease with (acute) lower respiratory infection Status: Acute Plan 53y/o F with pmx diabetes mellitus, COPD with asthma overlap syndrome not on home oxygen, GERD, cocaine use disorder, obstructive sleep apnea on BiPAP, gastroparesis came to Ed for shortness of breath x2 days, nonproductive cough. Acute hypoxic respiratory failure due to acute exacerbation of COPD-asthma overlap syndrome,pneumonia : sob with minimal excersion cxr-right lower lobe pneumonia lactic acid normal tachycardia due to nebs ,wbc ch flactuating tachypnea sec to copd ,improving blood culture sent by ed pending RPP and sputum culture ,strep and legionella ag added. started on scheduled and p.r.n. DuoNebs, IV steroids, IV antibiotics baseline theophylline, continue supplemental oxygen taper to keep sat between 88-90 %. She was encouraged to avoid tobacco use and all other inhaled substances. Tobacco use disorder: Counseled regarding cessation. NRT . HENRY: Continue CPAP at bedtime. cpap ordered. Krz-[id number]-uknlytzcu diabetes mellitus with hyperglycemia: insulin Gastroesophageal reflux disease: On PPI. Morbid obesity: Encouraged to lose weight, cutdown calories. dvt prophylax: s/c lovenox. Patient will benefit from 2 midnight stays-consideringAcute hypoxic respiratory failure due to acute exacerbation of COPD-asthma overlap syndrome,pneumonia - need supplemental oxygen, nebs, steroids, antibiotics and close monitoring of respiratory status. Above management discussed with the patient detail and she understand in agreement with the above plan, time spent 70 minute. Quality Stroke Does the patient have a stroke diagnosis?: No VTE Prior VTE?: No VTE Risk Level:: Medical - moderate - high VTE Device Contraindication: N/A - Device Ordered VTE Drug Contraindication: N/A - Med Ordered
[2024-04-05 13:12] LABS: Glucose, Whole Blood 284 mg/dL (60-115)
[2024-04-05] MEDS: levoFLOXacin/D5W 750 MG/150 ML PIGGYBACK 100 MG IV (13:33)
[2024-04-05] MEDS: Insulin Lispro 100 UNIT/ML 3 ML VIAL SUBCUT (13:33)
--- NOTE | 2024-04-05 15:26 | PC.NURSE ---
Pt IV infiltrated, 20g IV placed in R wrist, patent, asymptomatic.
--- NOTE | 2024-04-05 16:02 | PC.NURSE ---
Pt placed back on CPAP d/t O2 sat dipping into mid 80s while sleeping. O2 94-96%
[2024-04-05 18:13] LABS: Glucose, Whole Blood 131 mg/dL (60-115)
[2024-04-05 21:38] LABS: Glucose, Whole Blood 130 mg/dL (60-115)
[2024-04-05] MEDS: Nicotine 21 MG PATCH.TD24 TRANSDERMA (23:00)
[2024-04-05] MEDS: Gabapentin 400 MG CAPSULE 800 MG PO (23:00)
[2024-04-05] MEDS: Theophylline Anhydrous ER 400 MG TAB.ER.24H PO (23:00)
[2024-04-05] MEDS: Calcium + Vitamin D 250 MG TABLET PO (23:00)
[2024-04-05] MEDS: 0.9 % Sodium Chloride Flush 3 ML SYRINGE IVFLUSH (23:04)
[2024-04-06] VITALS (14 sets, daily range): BP systolic 128–152; BP diastolic 66–89; PULSE 62–105; RESP 16–24; TEMP 36.1–36.6; O2SAT 91–98
[2024-04-06] MEDS: Albuterol/Iprat 2.5/0.5MG 3 ML AMPUL.NEB INHALE ×6 (00:05→23:35)
[2024-04-06 06:30] LABS: Hematocrit 37.3 % (37.0-47.0); Mean Corpuscular HGB Conc 29.5 g/dl (31.0-35.0); Mean Corpuscular Hemoglobin 23.3 pg (27.0-33.0); Mean Platelet Volume 9.2 fL (9.4-12.3); Platelet Count 508 X10*3/uL (160-400); Red Blood Count 4.72 X10*6/uL (4.20-5.50); Red Cell Distribution Width 17.2 % (11.0-16.0)
[2024-04-06 06:43] LABS: Anion Gap 11 (12-20); Blood Urea Nitrogen 23 mg/dL (9-16); Calcium 9.4 mg/dL (8.4-10.2); Carbon Dioxide 31 mmol/L (22-29); Chloride 102 mmol/L (96-108); Creatinine Clr Calc Pharmacy 65.4; Estimated Glomerular Filt Rate > 60; Glucose Random 237 mg/dL (60-115); Potassium 4.3 mmol/L (3.3-5.1); Sodium 140 mmol/L (135-145)
[2024-04-06 08:08] LABS: Glucose, Whole Blood 175 mg/dL (60-115)
[2024-04-06 08:16] LABS: Estimated Average Glucose 171 mg/dL; Hemoglobin A1C 310.5793 umol/L; Hemoglobin A1c % 7.6 % (<6.0); Total Hemoglobin (HGBA1C) 5244.4221 umol/L
[2024-04-06] MEDS: methylPREDNISolone Sod Succ 40 MG/ML VIAL IVPUSH ×2 (08:26→20:05)
[2024-04-06] MEDS: Enoxaparin Sodium 40 MG/0.4 ML SYRINGE SUBCUT (08:26)
[2024-04-06] MEDS: Losartan Potassium 25 MG TABLET PO (08:27)
[2024-04-06] MEDS: glipiZIDE 5 MG TABLET 2.5 MG PO ×2 (08:27→17:18)
[2024-04-06] MEDS: Calcium + Vitamin D 250 MG TABLET PO ×2 (08:27→20:05)
[2024-04-06] MEDS: Gabapentin 400 MG CAPSULE 800 MG PO ×4 (08:27→20:05)
[2024-04-06] MEDS: Omeprazole 20 MG CAPSULE.DR PO (08:27)
[2024-04-06] MEDS: Aspirin Enteric Coated 81 MG TABLET.DR PO (08:27)
[2024-04-06] MEDS: Sertraline HCL 100 MG TABLET PO (08:27)
[2024-04-06] MEDS: Furosemide 20 MG TABLET PO (08:27)
[2024-04-06] MEDS: Theophylline Anhydrous ER 400 MG TAB.ER.24H PO ×2 (08:27→20:05)
[2024-04-06] MEDS: 0.9 % Sodium Chloride Flush 3 ML SYRINGE IVFLUSH ×3 (08:28→23:31)
[2024-04-06] MEDS: Nicotine 21 MG PATCH.TD24 TRANSDERMA (08:28)
[2024-04-06] MEDS: Insulin Lispro 100 UNIT/ML 3 ML VIAL SUBCUT ×2 (08:28→11:35)
--- NOTE | 2024-04-06 08:59 | MHC.CM.PN ---
Pt lives with her sister, she has [employer] assistance, provided by her daughter, Jaja, who is also her HCP, copy on file and confirmed. PCP confirmed: Dr. Hale. DME: [facility] and w/alexander. Pt. is active with [facility], update sent to them. Pt. will need assistance with transport home at [place]. DCP: home, resume [employer] and [facility] services. CM to follow and assist with DC plan.
[2024-04-06 11:17] LABS: Glucose, Whole Blood 183 mg/dL (60-115)
[2024-04-06] MEDS: levoFLOXacin/D5W 750 MG/150 ML PIGGYBACK 100 MG IV (13:27)
--- NOTE | 2024-04-06 13:38 | P.PNIM_ITS ---
Subjective Subjective Date of Service: 04/06/24 Interval History: AHRF sec acute exacerbation of COPD-asthma overlap syndrome,pneumonia Review of Systems sob seems similar has nonproductive cough no fever Physical Exam 2 Vital Signs: Vital Signs: Last Vital Signs Temp 97 F 04/06/24 12:00 Pulse 62 04/06/24 12:00 Resp 20 04/06/24 12:00 BP 148/89 H 04/06/24 12:00 Pulse Ox 98 04/06/24 12:00 O2 Del Method Nasal Cannula 04/06/24 12:00 O2 Flow Rate 2 04/06/24 12:00 BMI result Body Mass Index 35.7 Appearance: Alert.? Oriented X3.?sob. cvs: rrr, [id number] . res: air entry diminshed ,has exp wheezing b/l. abd: no rebound or guarding ,nt, bs present. ext pulses present , no cyanosis. neuro: axo3 , nonfocal. Objective Data Active Medications Acetaminophen (Acetaminophen 325 Mg Tablet) 650 mg PO Q6H PRN PRN Reason: Pain, Mild (Pain Scale 1-3), fever or headache Albuterol/Ipratropium (Albuterol/Iprat 2.5/0.5mg 3 Ml Ampul.Neb) 3 ml INHALE Q4H [facility] Last Admin: 04/06/24 11:37 Dose: 3 ml Documented By: VAZQUEZ Albuterol/Ipratropium (Albuterol/Iprat 2.5/0.5mg 3 Ml Ampul.Neb) 3 ml INHALE Q3H PRN PRN Reason: sob Aspirin (Aspirin Enteric Coated 81 Mg Tablet.) 81 mg PO DAILY [facility] Last Admin: 04/06/24 08:27 Dose: 81 mg Documented By: BERNABE Calcium Carbonate (Calcium Carbonate 750 Mg Tab.Chew) 750 mg PO Q4H PRN PRN Reason: Heartburn Calcium Carbonate/Cholecalciferol (Calcium + Vitamin D 250 Mg Tablet) 250 mg PO BID [facility] Last Admin: 04/06/24 08:27 Dose: 250 mg Documented By: BERNABE Enoxaparin Sodium (Enoxaparin Sodium 40 Mg/0.4 Ml Syringe) 40 mg SUBCUT DAILY [facility] Last Admin: 04/06/24 08:26 Dose: 40 mg Documented By: BERNABE Furosemide (Furosemide 20 Mg Tablet) 20 mg PO DAILY [facility]; Protocol Last Admin: 04/06/24 08:27 Dose: 20 mg Documented By: BERNABE Gabapentin (Gabapentin 400 Mg Capsule) 800 mg PO QID [facility] Last Admin: 04/06/24 13:25 Dose: 800 mg Documented By: BERNABE Glipizide (Glipizide 5 Mg Tablet) 2.5 mg PO BIDWM [facility] Last Admin: 04/06/24 08:27 Dose: 2.5 mg Documented By: BERNABE Glucose (Glucose Gel 15 Gm Gel..Gram.) 15 gm PO Q15M PRN; Protocol PRN Reason: per Hypoglycemia Standing Ord. Dextrose (D10) 250 mls @ 750 mls/hr IV Q15M PRN; Protocol PRN Reason: per Hypoglycemia Standing Ord. Levofloxacin (Levaquin) 750 mg in 150 mls @ 100 mls/hr IV Q24H [facility] Last Admin: 04/06/24 13:27 Dose: 100 mls/hr Documented By: BERNABE Insulin Human Lispro (Insulin Lispro 100 Unit/Ml 3 Ml Vial) 0 unit SUBCUT QIDACHS [facility]; Protocol Last Admin: 04/06/24 11:35 Dose: 2 unit Documented By: BERNABE Losartan Potassium (Losartan Potassium 25 Mg Tablet) 25 mg PO DAILY [facility]; Protocol Last Admin: 04/06/24 08:27 Dose: 25 mg Documented By: BERNABE Magnesium Hydroxide (Milk Of Magnesia 30 Ml Oral.Susp) 30 ml PO DAILY PRN PRN Reason: Constipation Melatonin (Melatonin 3 Mg Tablet) 6 mg PO BEDTIME PRN PRN Reason: Insomnia Methylprednisolone Sodium Succinate (Methylprednisolone Sod Succ 40 Mg/Ml Vial) 40 mg IVPUSH BID [facility] Last Admin: 04/06/24 08:26 Dose: 40 mg Documented By: BERNABE Nicotine (Nicotine 21 Mg Patch.Td24) 21 mg TRANSDERMA DAILY [facility] Last Admin: 04/06/24 08:28 Dose: 21 mg Documented By: BERNABE Omeprazole (Omeprazole 20 Mg Capsule.Dr) 20 mg PO DAILY [facility] Last Admin: 04/06/24 08:27 Dose: 20 mg Documented By: BERNABE Sertraline HCl (Sertraline Hcl 100 Mg Tablet) 100 mg PO DAILY [facility] Last Admin: 04/06/24 08:27 Dose: 100 mg Documented By: BERNABE Sodium Chloride (0.9 % Sodium Chloride Flush 3 Ml Syringe) 3 ml IVFLUSH QSHIFT [facility] Last Admin: 04/06/24 08:28 Dose: 3 ml Documented By: BERNABE Theophylline (Theophylline Anhydrous Er 400 Mg Tab.Er.24h) 400 mg PO BID [facility] Last Admin: 04/06/24 08:27 Dose: 400 mg Documented By: BERNABE Tizanidine HCl (Tizanidine Hcl 4 Mg Tablet) 4 mg PO Q12H PRN PRN Reason: muscle spasm Labs 04/06/24 06:11 04/06/24 06:11 Labs: Laboratory Results - last 24 hr 04/05/24 04/05/24 04/06/24 18:09 21:35 06:11 MCV 79.0 L MCH 23.3 L MCHC 29.5 L RDW 17.2 H Plt Count 508 H D MPV 9.2 L Absolute Nucleated RBC 0.000 Nucleated RBC % (auto) 0.0 Anion Gap 11 L Estim Creat Clear Calc 65.4 Estimated GFR > 60 POC Glucose 131 H 130 H Random Glucose 237 H Estimat Average Glucose 171 Hemoglobin A1c % 7.6 H Calcium 9.4 04/06/24 04/06/24 07:55 10:50 MCV MCH MCHC RDW Plt Count MPV Absolute Nucleated RBC Nucleated RBC % (auto) Anion Gap Estim Creat Clear Calc Estimated GFR POC Glucose 175 H 183 H Random Glucose Estimat Average Glucose Hemoglobin A1c % Calcium Microbiology Microbiology Results: Microbiology 04/05/24 02:58 Blood Culture - Preliminary Blood - Venous No growth after 24 hours. 04/05/24 02:58 Blood Culture - Preliminary Blood - Venous No growth after 24 hours. Assessment and Plan (1) Asthma exacerbation: Status: Acute (2) Pneumonia: Status: Acute Assessment and Plan: 53y/o F with pmx diabetes mellitus, COPD with asthma overlap syndrome not on home oxygen, GERD, cocaine use disorder, obstructive sleep apnea on BiPAP, gastroparesis came to Ed for shortness of breath x2 days, nonproductive cough. Acute hypoxic respiratory failure due to acute exacerbation of COPD-asthma overlap syndrome,pneumonia : sob with minimal excersion cxr-right lower lobe pneumonia lactic acid normal tachycardia due to nebs ,wbc ch flactuating tachypnea sec to copd ,improving blood culture sent by ed pending RPP and sputum culture ,strep and legionella ag added. continue on scheduled and p.r.n. DuoNebs, IV steroids, IV antibiotics baseline theophylline, continue supplemental oxygen taper to keep sat between 88-90 %. She was encouraged to avoid tobacco use and all other inhaled substances. Tobacco use disorder: Counseled regarding cessation. NRT . HENRY: Continue CPAP at bedtime. cpap ordered. Vax-blfblln-olkinmqyh diabetes mellitus with hyperglycemia: insulin Gastroesophageal reflux disease: On PPI. Morbid obesity: Encouraged to lose weight, cutdown calories. dvt prophylax: s/c lovenox. ongoing hsopitlisation need -consideringAcute hypoxic respiratory failure due to acute exacerbation of COPD-asthma overlap syndrome,pneumonia -need supplemental oxygen, nebs, steroids, antibiotics and close monitoring of respiratory status. Quality Stroke Does the patient have a stroke diagnosis?: No VTE Prior VTE?: No VTE Risk Level:: Medical - moderate - high VTE Device Contraindication: N/A - Device Ordered VTE Drug Contraindication: N/A - Med Ordered
[2024-04-06 17:08] LABS: Glucose, Whole Blood 133 mg/dL (60-115)
[2024-04-06] MEDS: TiZANidine HCL 4 MG TABLET PO (17:19)
[2024-04-06 19:50] LABS: Glucose, Whole Blood 133 mg/dL (60-115)
[2024-04-07] VITALS (11 sets, daily range): BP systolic 135–160; BP diastolic 68–92; PULSE 70–116; RESP 18–22; TEMP 36.1–37.1; O2SAT 87–96
[2024-04-07] MEDS: Albuterol/Iprat 2.5/0.5MG 3 ML AMPUL.NEB INHALE ×3 (07:33→15:36)
[2024-04-07 07:52] LABS: Glucose, Whole Blood 276 mg/dL (60-115)
[2024-04-07] MEDS: Theophylline Anhydrous ER 400 MG TAB.ER.24H PO (09:12)
[2024-04-07] MEDS: glipiZIDE 5 MG TABLET 2.5 MG PO (09:12)
[2024-04-07] MEDS: Furosemide 20 MG TABLET PO (09:12)
[2024-04-07] MEDS: Sertraline HCL 100 MG TABLET PO (09:12)
[2024-04-07] MEDS: Gabapentin 400 MG CAPSULE 800 MG PO ×2 (09:12→12:40)
[2024-04-07] MEDS: Aspirin Enteric Coated 81 MG TABLET.DR PO (09:12)
[2024-04-07] MEDS: Calcium + Vitamin D 250 MG TABLET PO (09:12)
[2024-04-07] MEDS: Losartan Potassium 25 MG TABLET PO (09:13)
[2024-04-07] MEDS: Omeprazole 20 MG CAPSULE.DR PO (09:13)
[2024-04-07] MEDS: Nicotine 21 MG PATCH.TD24 TRANSDERMA (09:13)
[2024-04-07] MEDS: methylPREDNISolone Sod Succ 40 MG/ML VIAL IVPUSH (09:14)
[2024-04-07] MEDS: Enoxaparin Sodium 40 MG/0.4 ML SYRINGE SUBCUT (09:14)
[2024-04-07] MEDS: Insulin Lispro 100 UNIT/ML 3 ML VIAL SUBCUT (09:18)
[2024-04-07] MEDS: 0.9 % Sodium Chloride Flush 3 ML SYRINGE IVFLUSH (09:18)
[2024-04-07 11:23] LABS: Glucose, Whole Blood 132 mg/dL (60-115)
[2024-04-07] MEDS: levoFLOXacin/D5W 750 MG/150 ML PIGGYBACK 100 MG IV (12:41)
[2024-04-07] MEDS: Flu Vacc TS2024-25(6mos up)/PF 0.5 ML SYRINGE IM (12:54)
--- NOTE | 2024-04-07 14:25 | PM.DS ---
DS: Providers Provider Date of Service: 04/07/24 Date of admission: 04/05/24 07:27 Date of discharge: 04/07/24 [facility] DS: Diagnosis Discharge Diagnosis (1) Asthma exacerbation: Status: Resolved (2) Pneumonia: Status: Acute DS: Summary Hospital Course Hospital Course: admission hpi 53y/o F with pmx diabetes mellitus, COPD with asthma overlap syndrome not on home oxygen, GERD, cocaine use disorder, obstructive sleep apnea on BiPAP, gastroparesis came to Ed for shortness of breath x2 days, nonproductive cough. Patient her inhaler and her nebulizers more frequently and despite this she was felt worse so decided to come to hospital- She was given a nebulizer treatment en route to ed with minimal improvement of her symptoms. She has associated abdominal pain and chest pain which is worse with coughing. She denied fever but did have chills. She denied myalgias arthralgias.patient says her sister has uri's like symptoms. as per ed nursing documentation-seems sats drops to 80's on 1 liter oxygen She was also admitted from 02/13/20242023 until 02/14/2024 and treated for acute respiratory failure with hypoxia and acute exacerbation of COPD/asthma ,she says her symptoms are similar to that time. labs,imaging , ekg reveiwed: leucocytosis seems chronic. cmp-negative , trops flat (24.1-18.8), ekg-poor baseline, seems similar to before. cxr-suspicious for right base pneumonia. Mild right basilar airspace opacities and a trace right pleural effusion are present. she received nebs,steriods in ed -still symptomatic ,requested admission for acute hypoxemic respiratory failure secondary toCOPD execerebation ,pneumonia . hospital course: The patient presented with two days of shortness of breath, and a chest X-ray revealed a mild right lower lobe infiltrate. She was hypoxic and required supplemental oxygen, which she does not use at home. Upon admission, she was treated with bronchodilators via nebulizer, IV steroids, and Levaquin for pneumonia. She has made a rapid recovery and is feeling much better, expressing a desire to be discharged. However, her oxygen levels drop with ambulation, and she has been assessed and qualifies for home oxygen at 1 liter. The patient is comfortable and eager to return home. She will be prescribed Levaquin and Prednisone for a total of 5 days each. Time Attestation Discharge Coordination Time (in mins): 45 Quality: Safe Use of Opioids Does Pt have an Active Cancer Diagnosis on the Problem List?: No Quality: Stroke Does the patient have a stroke diagnosis?: No Physical Exam Vital Signs: Vital Signs: Last Vital Signs Temp 98.3 F 04/07/24 12:00 Pulse 102 H 04/07/24 12:00 Resp 22 H 04/07/24 12:00 BP 156/87 H 04/07/24 12:00 Pulse Ox 93 04/07/24 12:00 O2 Del Method Nasal Cannula 04/07/24 12:00 O2 Flow Rate 1 04/07/24 12:00 BMI result Body Mass Index 35.7 DS: Data Data Completed and Pending Completed studies during hospitalization [Text1]: Procedures Assistance with Respiratory Ventilation, Less than 24 Consecutive Hours, Continuous Positive Airway Pressure (01/14/24) Insertion of Endotracheal Airway into Trachea, Via Natural or Artificial Opening (11/03/20) Insertion of Infusion Device into Superior Vena Cava, Percutaneous Approach (11/03/20) Respiratory Ventilation, Less than 24 Consecutive Hours (11/03/20) Labs on day of discharge: Laboratory Results - last 24 hr 04/06/24 04/06/24 04/07/24 17:04 19:45 07:40 POC Glucose 133 H 133 H 276 H 04/07/24 11:19 POC Glucose 132 H Preliminary micro results at discharge 04/05/24 02:58 Blood Culture - Preliminary Blood - Venous No growth after 48 hours. 04/05/24 02:58 Blood Culture - Preliminary Blood - Venous No growth after 48 hours. Discharge Plan Discharge Anticipated Discharge Date/Time: 04/07/24 14:16 Patient Disposition: Home, Self-Care Discharge Diagnosis: COPD exacerbation, Pneumonia Referrals: Joe Hale FNP-BC [Primary Care Provider] - 1 Week Discharge Medications: Continued (DME) lancets [FreeStyle Lancets] 28 gauge misc See Rx Instructions .ROUTE .MEDSUPPLY Qty: 100 1RF Rx Instructions: Use to check blood sugar daily or if symptomatic hypo/hypergylcemia (DME) 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 meter [FreeStyle Lite Meter] Kit See Rx Instructions .ROUTE .MEDSUPPLY Qty: 1 0RF Rx Instructions: Use to check blood sugar daily or if symptomatic for hypo/hyperglycemia (DME) FreeStyle Lite Strips Strip See Rx Instructions .ROUTE .MEDSUPPLY Qty: 100 1RF Rx Instructions: Use to check blood sugar daily or if symptomatic hypo/hypergylcemia calcium carbonate-vitamin D3 500 mg-10 mcg (400 unit) tablet 1 tab PO BID 30 Days Qty: 60 6RF furosemide 20 mg tablet 20 mg PO DAILY Qty: 90 3RF acetaminophen 650 mg tablet extended release 650 mg PO Q12H PRN (Reason: pain) 30 Days Qty: 60 0RF aspirin 81 mg tablet,delayed release (DR/EC) 81 mg PO DAILY 90 Days Qty: 90 1RF theophylline 400 mg tablet extended release 24 hr 400 mg PO BID 90 Days Qty: 180 4RF nicotine 21 mg/24 hr Patch 24 Hour 1 patch TRANSDERMAL DAILY PRN (Reason: Nicotine Cravings) dexlansoprazole [Dexilant] 60 mg capsule,biphase delayed releas 60 mg PO DAILY@0630 ipratropium bromide 0.02 % solution 2.5 ml inhalation Q6H PRN (Reason: Wheezing) losartan 25 mg tablet 25 mg PO DAILY 90 Days Qty: 90 0RF No Action ibuprofen 800 mg tablet 800 mg PO BID PRN (Reason: pain) Qty: 60 0RF Rx Instructions: please use sparingly due to diabetes sertraline 100 mg tablet 100 mg PO DAILY Qty: 90 0RF gabapentin 800 mg tablet 800 mg PO TID PRN (Reason: Pain) 30 Days Qty: 90 0RF glipizide 5 mg tablet 5 mg PO DAILY Qty: 90 0RF tizanidine 4 mg tablet 4 mg PO Q12H PRN (Reason: muscle spasm) 30 Days Qty: 60 0RF Rx Instructions: do not take concurrently with famotidine albuterol sulfate [Ventolin HFA] 90 mcg/actuation HFA aerosol inhaler 2 puff inhalation Q6H PRN (Reason: for wheezing) Qty: 1 6RF Stiolto Respimat 2.5-2.5 mcg/actuation mist 2 puff INHALATION DAILY prednisone 20 mg tablet 40 mg PO DAILY 5 Days Qty: 10 0RF Discharge Orders: Discharge Order (Routine); Ordered 04/07/24 Ordered By: Oliverio Liriano Diet: Advance to usual diet Activity on Discharge: As tolerated Stand Alone Forms: Patient Portal Discharge page Print Language: Turkmen Care Plan Goals: recovery from copd and pneumonia Health Concerns: Recovering from COPD and pneumonia. Plan of Treatment: Take Levaquin as recommended take prednisone for asthma exacerbation follow-up with your primary care doctor within a week, call for appointment Take Prednisone 4 tabs daily for 2 more days starting tommorrow Assessment: see above Discharge Date/Time: 04/07/24 16:51
--- NOTE | 2024-04-07 16:15 | MHC.CM.PN ---
Patient has been medically cleared for dc to home today, self care.
[2024-04-07 16:40] LABS: Glucose, Whole Blood 260 mg/dL (60-115)
[2024-04-08 07:18] LABS: Theophylline 9.3
== END 2024-04-07 16:51 | disposition home or self-care (01) | DRG 140 ==
LOC: HO.ED 04:57 → HO.EDOVER 07:45 → HO.IMC 20:26
PROVIDERS: Admitting Provider Internal Medicine; Emergency Provider Emergency Medicine Emergency Medical Services; PCP Nurse Practitioner Family; Visit Provider Internal Medicine
DX: J44.0 Chronic obstructive pulmonary disease with (acute) lower respiratory infection (principal); J96.01 Acute respiratory failure with hypoxia; J18.9 Pneumonia, unspecified organism; J45.901 Unspecified asthma with (acute) exacerbation; K21.9 Gastro-esophageal reflux disease without esophagitis; J44.1 Chronic obstructive pulmonary disease with (acute) exacerbation; E11.65 Type 2 diabetes mellitus with hyperglycemia; Z20.822 Contact with and (suspected) exposure to COVID-19; F17.210 Nicotine dependence, cigarettes, uncomplicated; G47.33 Obstructive sleep apnea (adult) (pediatric); E66.01 Morbid (severe) obesity due to excess calories; Z68.35 Body mass index [BMI] 35.0-35.9, adult; Z71.6 Tobacco abuse counseling; Z79.82 Long term (current) use of aspirin; Z79.84 Long term (current) use of oral hypoglycemic drugs; Z79.899 Other long term (current) drug therapy
CPT/HCPCS: 0241U; 36415; 71045; 80048; 80053; 80198; 82803; 82947; 83036; 83605; 83690; 83880; 84484; 85025; 85027; 87040; 90656; 93005; 94640; 94660; 99285; J0692; J1650; J1940; J1956; J2919

== ENCOUNTER → 2024-04-05 07:27 | Outpatient (BNV) | payer OTHER, SELFPAY | PROVIDERS: Admitting Provider Internal Medicine; Emergency Provider Emergency Medicine Emergency Medical Services; PCP Nurse Practitioner Family; Visit Provider Internal Medicine | DX: J45.901 Unspecified asthma with (acute) exacerbation (principal); J18.9 Pneumonia, unspecified organism; R00.0 Tachycardia, unspecified | CPT/HCPCS: 99222; 99232; 99239 ==

== ENCOUNTER 2024-04-17 03:04 | Inpatient (IN) | payer OTHER, SELFPAY ==
[2024-04-17] VITALS (16 sets, daily range): BP systolic 95–144; BP diastolic 50–85; PULSE 88–132; RESP 13–30; TEMP 36–36.6; O2SAT 88–99; BMI 36.0; BMI 35.8
--- NOTE | ~2024-04-17 | XR_ITS ---
EXAMINATION: XR CHEST CLINICAL INFORMATION: Shortness of breath. COMPARISON: April 05, 2024. TECHNIQUE: Frontal view of the chest was obtained. FINDINGS: The cardiomediastinal silhouette is stable. There is no focal lung consolidation or pleural effusions. The bony structures and the soft tissues are unremarkable. XR/XR chest 1V IMPRESSION: No evidence for active cardiopulmonary disease. Electronically signed by: Chapo Carreon MD 04/17/2024 04:14 AM EDT
--- NOTE | 2024-04-17 03:09 | ED_ITS ---
HPI - SOB/Dyspnea General Chief Complaint: Dyspnea Stated Complaint: SOB Severe COPD slow to respond, labored breathing Time Seen by Provider: 04/17/24 03:06 Source: patient Mode of arrival: EMS Limitations: other (Severe respiratory distress) History of Present Illness ED Provider: Dr. Trev Clay HPI Narrative: 53-year-old female with a history diabetes mellitus, COPD with asthma overlap syndrome not on home oxygen, GERD, cocaine use disorder, obstructive sleep apnea on BiPAP, gastroparesis who presents emergency department for evaluation of shortness of breath x x1 day. Patient states she was using her nebulizer throughout the day with no relief of her shortness of breath. Her symptoms got worse therefore she called an ambulance. Patient patient was hypoxic on her home O2 setting and paramedics placed her on 8 L per minute OxyMask with an O2 saturation of 97%. She was also given a DuoNeb EN route to the hospital. On presentation the patient was diaphoretic, she appeared to be very anxious, tachypneic and in severe respiratory distress. She was placed on BiPAP, treated with Solu-Medrol 125 mg IV, magnesium 1 g IV, Zofran 4 mg IV and morphine 4 mg IV for her dyspnea. Patient did tell the nurse that she use crack cocaine yesterday Related Data Home Medications ?Medication ?Instructions ?Recorded ?Confirmed dexlansoprazole 60 mg 60 mg PO DAILY@0630 12/16/23 04/05/24 capsule,biphase delayed release (Dexilant) ipratropium bromide 0.02 % 2.5 ml inhalation Q6H PRN Wheezing 02/13/24 04/05/24 solution for inhalation nicotine 21 mg/24 hr daily 1 patch transdermal DAILY 04/05/24 04/05/24 transdermal patch prednisone 10 mg tablet See Rx Instructions .Route .COMPLEX 04/05/24 04/05/24 Previous Rx's ?Medication ?Instructions ?Recorded lancets 28 gauge (FreeStyle #100 ea 01/20/21 Lancets) 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 meter (FreeStyle #1 ea 03/01/22 Lite Meter kit) blood sugar diagnostic (FreeStyle #100 ea 09/16/22 Lite Strips) calcium carbonate 500 mg-vitamin 1 tab PO BID 30 days #60 tabs 12/09/23 D3 10 mcg (400 unit) tablet furosemide 20 mg tablet 20 mg PO DAILY #90 tabs 12/09/23 acetaminophen 650 mg 650 mg PO Q12H PRN pain 30 days 01/01/24 tablet,extended release #60 tabs aspirin 81 mg tablet,delayed 81 mg PO DAILY 90 days #90 tabs 01/01/24 release tiotropium 2.5 mcg-olodaterol 2.5 2 puff inhalation DAILY #4 grams 01/20/24 mcg/actuation mist for inhalation (Stiolto Respimat) theophylline 400 mg 400 mg PO BID 90 days #180 tabs 01/27/24 tablet,extended release 24 hr losartan 25 mg tablet 25 mg PO DAILY 90 days #90 tabs 02/14/24 levofloxacin 750 mg tablet 750 mg PO DAILY 2 days #2 tabs 04/07/24 gabapentin 800 mg tablet 800 mg PO TID PRN Pain 30 days #90 04/08/24 tabs glipizide 5 mg tablet 5 mg PO DAILY #90 tabs 04/08/24 ibuprofen 800 mg tablet 800 mg PO BID PRN pain #60 tabs 04/08/24 sertraline 100 mg tablet 100 mg PO DAILY #90 tabs 04/08/24 tizanidine 4 mg tablet 4 mg PO Q12H PRN muscle spasm 30 04/08/24 days #60 tabs albuterol sulfate 90 mcg/actuation 2 puff inhalation Q6H PRN for 04/10/24 aerosol inhaler (Ventolin HFA) wheezing #1 ea Allergies Allergy/AdvReac Type Severity Reaction Status Date / Time doxycycline Allergy Severe Swelling Verified 04/17/24 03:12 varenicline [From CHANTIX] Allergy Severe ANAPHYLAXIS Verified 04/17/24 03:12 azithromycin Allergy Intermediate Rash Verified 04/17/24 03:12 barium sulfate Allergy Intermediate angioedema Verified 04/17/24 03:12 cetirizine Allergy Mild Rash Verified 04/17/24 03:12 famotidine Allergy Mild Rash Verified 04/17/24 03:12 linaclotide [Linzess] Allergy Mild Rash Verified 04/17/24 03:12 Review of Systems 2 Review of Systems: Yes Unobtainable due to mental condition PMFSH Past Medical History Medical History Hypoxic respiratory failure Nocturnal hypoxemia HENRY (obstructive sleep apnea) COPD (chronic obstructive pulmonary disease) Diabetes mellitus COPD exacerbation Crack cocaine use Hyperkalemia Metabolic acidosis Leukocytosis Chest discomfort Chronic renal failure, stage 2 (mild) SOB (shortness of breath) Asthma Smoker Rotator cuff tendonitis GERD (gastroesophageal reflux disease) Chronic idiopathic constipation Bustos's esophagus Depression High triglycerides Gastroparesis Carpal tunnel syndrome of right wrist Nausea & vomiting Hernia Acute and chronic respiratory failure, unspecified whether with hypoxia or hypercapnia HTN (hypertension) Obesity (BMI 30-39.9) Knee pain, bilateral Surgical History History of cholecystectomy (~1988) History of carpal tunnel release Hx of tubal ligation History of pubovaginal sling (~2015) History of umbilical hernia repair (~2001) Hx of section History of open reduction and internal fixation (ORIF) procedure History of esophagogastroduodenoscopy (EGD) Family History Family History Father Heart disease HENRY (obstructive sleep apnea) Family history of breast cancer Mother Asthma Emphysema, unspecified Bronchitis Smoker Alcoholism Bone marrow disease Maternal Grandmother Diabetes Social History Social History Household Members: Family Household Members Other:: daughter Housing: House Are you a primary director day care center to a significant other at home: No Do you presently have visiting nurse or other home services: Yes Unable to assess alcohol history related to: Unknown Alcohol intake: former Comment: Sleeping Patient Tobacco Use Status: Current everyday Tobacco user Tobacco use type: Cigarette Cigarette Packs Per Day: 0.5 Cigarettes Per Day: 10.0 Years Smoked: 48 Smoked in Last 30 Days: Yes e-Cigarette/Vaping Use: Never Used Second Hand Smoke Exposure: Yes Use of substances other than those prescribed or required for medical reasons: Yes Substance Use Type: Crack/Cocaine Substance Use Frequency: Chronic Longstanding Last Used Substance: Days (ago) Any prior treatment program specific to substance use: No Advance Directives: Yes Advance Directives on File: Yes Advance Directives Date on File: 12/19/23 Patient : No service: No Current occupational status: disabled 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 Physical Exam 2 Vital Signs: Vital Signs: Last Vital Signs Temp 97.4 F 04/17/24 03:33 Pulse 123 H 04/17/24 03:36 Resp 20 04/17/24 04:08 BP 105/50 L 04/17/24 03:33 Pulse Ox 98 04/17/24 03:33 O2 Del Method BiPAP 04/17/24 03:33 Oxygen Flow Rate 8 04/17/24 03:10 BMI result Body Mass Index 36.0 Vital signs revealed an elevated heart rate of 123, elevated respiratory rate of 20 Exam: General: Patient was diaphoretic, anxious, tachypneic, talking in 1-2 word sentences Head: Normocephalic atraumatic EENT: PERRL, Lids normal, sclera normal, conjunctiva normal, nose normal , ears normal, throat without erythema or exudates Neck: Supple, no adenopathy Lung: Minimal inspiratory and expiratory air movement, diffuse wheezing, no rales or rhonchi Chest: symmetric movement, nontender Heart: regular rate and rhythm, normal S1, S2 no murmurs or rubs Abdomen: soft, non-tender, nondistended, normal bowel sounds Back: no vertebral tenderness, no CVAT Extremities: no deformities, moves all extremities symmetrically Medications Administered Discontinued Medications Generic Name Dose Route Start Last Admin Trade Name Freq PRN Reason Stop Dose Admin Albuterol/Ipratropium 3 ml 04/17/24 03:31 04/17/24 03:40 Albuterol/Iprat 2.5/0.5mg 3 Ml Ampul.Neb INHALE 04/17/24 03:32 3 ml ONCE ONE Administration Albuterol Sulfate 7.5 mg/ 0 mg 04/17/24 03:23 04/17/24 03:33 Albuterol/Ipratropium 3 ml INHALE 04/17/24 03:24 1 each ONCE ONE Administration Magnesium Sulfate/Dextrose 1 gm in 100 mls @ 100 mls/hr 04/17/24 03:10 04/17/24 03:20 Magnesium Sulfate/D5w IV 04/17/24 04:09 100 mls/hr ONCE ONE Administration Methylprednisolone Sodium Succinate 125 mg 04/17/24 03:10 04/17/24 03:19 Methylprednisolone Sod Succ 125 Mg/2 Ml Vial IVPUSH 04/17/24 03:11 125 mg ONCE ONE Administration Morphine Sulfate 4 mg 04/17/24 03:10 04/17/24 03:20 Morphine Sulfate 4 Mg/Ml Cartridge IVPUSH 04/17/24 03:11 4 mg ONCE STA Administration Protocol Morphine Sulfate 4 mg 04/17/24 04:00 04/17/24 04:08 Morphine Sulfate 4 Mg/Ml Cartridge IVPUSH 04/17/24 04:01 4 mg ONCE STA Administration Protocol Ondansetron HCl 4 mg 04/17/24 03:10 04/17/24 03:20 Ondansetron Hcl 4 Mg/2 Ml Vial IVPUSH 04/17/24 03:11 4 mg ONCE ONE Administration Medical Decision Making Medical Decision Making MDM Narrative: 53-year-old female with a history diabetes mellitus, COPD with asthma overlap syndrome not on home oxygen, GERD, cocaine use disorder, obstructive sleep apnea on BiPAP, gastroparesis who presents emergency department for evaluation of shortness of breath x x1 day, crack cocaine use yesterday presents in severe respiratory distress. Vital signs revealed an elevated respiratory rate and elevated an elevated heart rate. Patient was placed immediately on BiPAP in treated aggressively with magnesium 1 g IV, Solu-Medrol 125 mg IV, albuterol 10 mg with ipratropium 2.5 mg nebulizer, morphine 4 mg IV x2 for dyspnea and Zofran 4 mg IV for nausea. 04:59 Differential diagnosis: ?Includes but is not limited to COPD exacerbation, asthma exacerbation, pneumonia, anemia, electrolyte abnormalities Course: 04:59 My interpretation patient's laboratory evaluation as follows: WBC elevated 19,600. Platelet count elevated 508,000. CBC and CMP were normal. High sensitive troponin I was elevated at 29.4-repeat 2 hour troponin due at 05:20 hours. Lactic acid elevated 2.2. Venous blood gas revealed a pH of 7.35, pCO2 of 59 and a bicarb of 27. Chest x-ray revealed no acute infiltrates. Twelve EKG consistent with a sinus tachycardia with no ST segment elevation or depression Patient is significantly improved after the above treatment. The patient is resting comfortably and will be kept on BiPAP since she wears this at home. I did discuss admission over tiger text with the covering hospitalist, . Admission/Observation Consideration of admission/observation: Escalation of care including admission/observation considered (Yes) Consult Healthcare Provider Management of the patient was discussed with: Hospitalist Lab Data [facility] Lab Attestation statement: I reviewed the patient's lab results. 04/17/24 03:21 04/17/24 03:21 Labs: Lab Results 04/17/24 04/17/24 04/17/24 Range/Units 03:21 03:27 03:40 WBC 19.6 H (4.8-10.8) X10*3/uL RBC 5.63 H (4.20-5.50) X10*6/uL Hgb 13.2 (12.0-16.0) g/dl Hct 43.0 (37.0-47.0) % MCV 76.4 L (80.0-98.0) fL MCH 23.4 L (27.0-33.0) pg MCHC 30.7 L (31.0-35.0) g/dl RDW 18.1 H (11.0-16.0) % Plt Count 508 H (160-400) X10*3/uL MPV 9.1 L (9.4-12.3) fL Immature Gran % (Auto) 0.4 (0.0-0.4) % Neut % (Auto) 55.8 (45-73) % Lymph % (Auto) 35.7 (20-40) % Beckham % (Auto) 6.6 (2-11) % Eos % (Auto) 1.2 (0-4) % Baso % (Auto) 0.3 (0-2) % Lymph # (Auto) 7.0 H (1.2-4.9) X10*3/uL Beckham # (Auto) 1.3 H (0.1-1.2) X10*3/uL Eos # (Auto) 0.2 (0.0-0.4) X10*3/uL Baso # (Auto) 0.1 (0.0-0.2) X10*3/uL Abs Immat Gran (auto) 0.07 H (0.00-0.03) X10*3/uL Absolute Neuts (auto) 11.0 H (2.0-8.3) x10*3/uL Absolute Nucleated RBC 0.000 (0.0-0.012) X10*3/uL Nucleated RBC % (auto) 0.0 (0.0-0.2) /100WBC Smear Tech's Comments VERIFIED APTT 28.5 (26.0-36.8) SEC VBG pH 7.35 (7.32-7.43) VBG pCO2 49 mmHg VBG pO2 59 mmHg VBG HCO3 27 H (22-26) mmol/L VBG O2 Saturation 84.0 % VBG Base Excess 1.3 mmol/L Sodium 141 (135-145) mmol/L Potassium 4.1 (3.3-5.1) mmol/L Chloride 102 (96-108) mmol/L Carbon Dioxide 25 (22-29) mmol/L Anion Gap 18 (12-20) BUN 14 (9-16) mg/dL Creatinine 0.78 (0.5-1.4) mg/dL Estim Creat Clear Calc 75.0 Estimated GFR > 60 Random Glucose 82 (60-115) mg/dL Lactic Acid 2.2 H* (0.5-2.0) mmol/L Calcium 9.7 (8.4-10.2) mg/dL Magnesium 1.8 (1.6-2.6) mg/dL Total Bilirubin 0.3 (0.0-1.0) mg/dL AST 11 (5-31) U/L ALT 14 (0-31) U/L Alkaline Phosphatase 87 (39-117) U/L Troponin I High Sens 29.4 H D (<3.5-17.0) ng/L B-Natriuretic Peptide 98 (<100) pg/mL Total Protein 7.5 (6.5-8.0) g/dL Albumin 4.3 (3.5-5.0) g/dL Lipase 30 (8-78) U/L Influenza Type A (PCR) NEGATIVE (Negative) Influenza Type B (PCR) NEGATIVE (Negative) RSV RNA Qual (PCR) NEGATIVE (Negative) SARS-CoV-2 RNA (RT-PCR) NEGATIVE (Negative) Independent Interpretation I performed an independent interpretation of an: EKG Interpretation: My interpretation of the patient's 12 EKG done at 03:12 hours is as follows: Sinus tachycardia rate of 123, normal IA interval, QRS duration QTC interval, no ST segment elevation, no ST segment depression, occasional PVC, no significant T-wave abnormalities Radiology Impression Discussion of test interpretation with radiology: I have reviewed the radiologist's reading. Radiologist Impression: XR chest 1V IMPRESSION: No evidence for active cardiopulmonary disease. Electronically signed by: Chapo Carreon MD 04/17/2024 04:14 AM Independent Historian Clinical information obtained from an independent historian. History obtained from or confirmed by: EMS External Record Review External record reviewed: Inpatient record Chronic Conditions Patient?s care impacted by: Diabetes and Other (COPD, cocaine use disorder) Critical Care Time Critical Care Time Critical Care Time: Yes Total Critical Care Time: 45 Attestation: Critical Care: The patient was critically ill with a high probability of imminent or life threatening deterioration. I spent greater than 30 minutes of discontinuous time evaluating the patient,delivering critical care at the bedside, discussing and evaluating pertinent data with consultants. Critical care time does not include time spent performing separately billable procedures or teaching. Total time spent performing critical care was 45 minutes. Discharge Plan Discharge Patient Disposition: Admitted As Inpatient Prescriptions: No Action (DME) lancets [FreeStyle Lancets] 28 gauge misc See Rx Instructions .ROUTE .MEDSUPPLY Qty: 100 1RF Rx Instructions: Use to check blood sugar daily or if symptomatic hypo/hypergylcemia (DME) 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 meter [FreeStyle Lite Meter] Kit See Rx Instructions .ROUTE .MEDSUPPLY Qty: 1 0RF Rx Instructions: Use to check blood sugar daily or if symptomatic for hypo/hyperglycemia (DME) FreeStyle Lite Strips Strip See Rx Instructions .ROUTE .MEDSUPPLY Qty: 100 1RF Rx Instructions: Use to check blood sugar daily or if symptomatic hypo/hypergylcemia calcium carbonate-vitamin D3 500 mg-10 mcg (400 unit) tablet 1 tab PO BID 30 Days Qty: 60 6RF furosemide 20 mg tablet 20 mg PO DAILY Qty: 90 3RF acetaminophen 650 mg tablet extended release 650 mg PO Q12H PRN (Reason: pain) 30 Days Qty: 60 0RF aspirin 81 mg tablet,delayed release (DR/EC) 81 mg PO DAILY 90 Days Qty: 90 1RF theophylline 400 mg tablet extended release 24 hr 400 mg PO BID 90 Days Qty: 180 4RF ibuprofen 800 mg tablet 800 mg PO BID PRN (Reason: pain) Qty: 60 0RF Rx Instructions: please use sparingly due to diabetes sertraline 100 mg tablet 100 mg PO DAILY Qty: 90 0RF gabapentin 800 mg tablet 800 mg PO TID PRN (Reason: Pain) 30 Days Qty: 90 0RF glipizide 5 mg tablet 5 mg PO DAILY Qty: 90 0RF tizanidine 4 mg tablet 4 mg PO Q12H PRN (Reason: muscle spasm) 30 Days Qty: 60 0RF Rx Instructions: do not take concurrently with famotidine albuterol sulfate [Ventolin HFA] 90 mcg/actuation HFA aerosol inhaler 2 puff inhalation Q6H PRN (Reason: for wheezing) Qty: 1 6RF prednisone 10 mg tablet See Rx Instructions .ROUTE .COMPLEX Rx Instructions: Take 4 pills daily for 5 days, then go down by 1 pill every 5 days; PATIENT IS ON DAY 2 OF 40 mg DAILY. nicotine 21 mg/24 hr Patch 24 Hour 1 patch TRANSDERMAL DAILY levofloxacin 750 mg tablet 750 mg PO DAILY 2 Days Qty: 2 0RF Rx Instructions: next dose tommorrow 1 pm dexlansoprazole [Dexilant] 60 mg capsule,biphase delayed releas 60 mg PO DAILY@0630 ipratropium bromide 0.02 % solution 2.5 ml inhalation Q6H PRN (Reason: Wheezing) losartan 25 mg tablet 25 mg PO DAILY 90 Days Qty: 90 0RF Stiolto Respimat 2.5-2.5 mcg/actuation mist 2 puff inhalation DAILY Qty: 4 6RF Print Language: [place]
--- NOTE | 2024-04-17 03:13 | ECG_ITS ---
Test Reason : SOB/LABORED BREATHING/COPD Blood Pressure : / mmHG Vent. Rate : 123 BPM Atrial Rate : 123 BPM P-R Int : 130 ms QRS Dur : 084 ms QT Int : 318 ms P-R-T Axes : 069 155 052 degrees QTc Int : 455 ms Sinus tachycardia with Premature atrial complexes with Aberrant conduction Right ventricular hypertrophy Abnormal ECG When compared with ECG of 05-APR-2024 01:59, increase in ventricular rate; Referred By: Trev Clay Electronically Signed By:DAVIS WALKER
[2024-04-17] MEDS: methylPREDNISolone Sod Succ 125 MG/2 ML VIAL IVPUSH (03:19)
[2024-04-17] MEDS: Magnesium Sulfate/D5W 1 GM/100 ML PIGGYBACK IV (03:20)
[2024-04-17] MEDS: Morphine Sulfate 4 MG/ML CARTRIDGE IVPUSH ×2 (03:20→04:08)
[2024-04-17] MEDS: ondansetron HCL 4 MG/2 ML VIAL IVPUSH (03:20)
[2024-04-17 03:27] LABS: Basophils Absolute Auto 0.1 X10*3/uL (0.0-0.2); Basophils Percent Auto 0.3 % (0-2); Eosinophils Absolute Auto 0.2 X10*3/uL (0.0-0.4); Eosinophils Percent Auto 1.2 % (0-4); Hemoglobin 13.2 g/dl (12.0-16.0); Imm Gran Abs Auto 0.07 X10*3/uL (0.00-0.03); Imm Gran Pct Auto 0.4 % (0.0-0.4); Lymphocytes Percent Auto 35.7 % (20-40); MANUAL DIFF FLAG SCAN; Mean Corpuscular HGB Conc 30.7 g/dl (31.0-35.0); Mean Corpuscular Hemoglobin 23.4 pg (27.0-33.0); Mean Corpuscular Volume 76.4 fL (80.0-98.0); Mean Platelet Volume 9.1 fL (9.4-12.3); Monocytes Absolute Auto 1.3 X10*3/uL (0.1-1.2); Monocytes Percent Auto 6.6 % (2-11); Neutrophils Percent Auto 55.8 % (45-73); Platelet Count 508 X10*3/uL (160-400); Red Blood Count 5.63 X10*6/uL (4.20-5.50); Red Cell Distribution Width 18.1 % (11.0-16.0); SCAN SMEAR FLAG 1; White Blood Count 19.6 X10*3/uL (4.8-10.8)
[2024-04-17 03:29] LABS: Venous Blood Gas Refer to POC result
[2024-04-17 03:33] LABS: VBG Base Excess 1.3 mmol/L; VBG HCO3 27 mmol/L (22-26); VBG pCO2 49 mmHg; VBG pH 7.35 (7.32-7.43); VBG pO2 59 mmHg
[2024-04-17] MEDS: Albuterol Sulfate 7.5 MG, Albuterol/Iprat 2.5/0.5MG 3 ML 3 ML INHALE (03:33)
[2024-04-17 03:36] LABS: Partial Thromboplastin Time 28.5 SEC (26.0-36.8)
[2024-04-17] MEDS: Albuterol/Iprat 2.5/0.5MG 3 ML AMPUL.NEB INHALE ×5 (03:40→19:44)
--- NOTE | 2024-04-17 03:42 | PC.NURSE ---
Pt BIB EMS after reports of difficulty breathing. Pt reports that she is current everyday smoker and uses home O2 at 2L NC daily. Pt also reports she used crack yesterday but does not use all the time. Pt labs drawn and #20 IV placed in R-wrist. Pt medicated as ordered with solumedrol, morphine, zofran and magnesium. RT at bedside and placed on BIPAP at 14/6 per MD Lungs wheezy, RR, 20'-30's.
[2024-04-17 03:45] LABS: Alanine Aminotransferase 14 U/L (0-31); Albumin Level 4.3 g/dL (3.5-5.0); Alkaline Phosphatase 87 U/L (39-117); Anion Gap 18 (12-20); Aspartate Amino Transferase 11 U/L (5-31); Bilirubin Total 0.3 mg/dL (0.0-1.0); Blood Urea Nitrogen 14 mg/dL (9-16); Calcium 9.7 mg/dL (8.4-10.2); Carbon Dioxide 25 mmol/L (22-29); Chloride 102 mmol/L (96-108); Estimated Glomerular Filt Rate > 60; Glucose Random 82 mg/dL (60-115); Lipase 30 U/L (8-78); Magnesium 1.8 mg/dL (1.6-2.6); Potassium 4.1 mmol/L (3.3-5.1); SLIDE REVIEW VERIFIED; Sodium 141 mmol/L (135-145); Total Protein 7.5 g/dL (6.5-8.0)
[2024-04-17 03:49] LABS: B Type Natriuretic Peptide 98 pg/mL (<100)
[2024-04-17 03:50] LABS: Troponin-I High Sensitivity 29.4 ng/L (<3.5-17.0)
[2024-04-17 04:02] LABS: Lactic Acid 2.2 mmol/L (0.5-2.0)
[2024-04-17 04:07] LABS: Influenza A PCR NEGATIVE (Negative); Influenza B PCR NEGATIVE (Negative); Resp Syncy Virus RNA Qual PCR NEGATIVE (Negative); SARS COV2 PCR INHOUSE NEGATIVE (Negative)
--- NOTE | 2024-04-17 05:40 | PM.IMHP ---
History of Present Illness Date of Service: 04/17/24 Chief Complaint: Dyspnea This is a 53-year-old female with pertinent history of chronic hypoxemic respiratory failure due to COPD-asthma overlap syndrome, HENRY/OHS on nocturnal BiPAP, lep-kzjpped-wrvsyzbvt diabetes mellitus, hypertension, gastroesophageal reflux disease, active tobacco use disorder, history of cocaine use, obesity who presents to the emergency department for evaluation of dyspnea. Patient states her symptoms started 2 days prior to presentation. She has been having nonproductive cough along with dyspnea which is worse with exertion. Has associated wheezing. No relief with home inhalers. Admits he is noncompliant with NIV at home during bedtime. Uses 1-2 L supplemental oxygen during the day. Patient was found to be hypoxic on home O2 by EMS. Admits to using crack cocaine 1 day prior to presentation. No chest pain or palpitations. No fever, chills, chest discomfort, abdominal pain, changes in urinary or bowel habits. Does not use oxygen at home. Admits that she continues to smoke cigarettes daily In the emergency department, patient with wheezing despite multiple DuoNeb treatments. Also received IV steroids Review of Systems Constitutional: Constitutional: Reports fatigue and Reports malaise Cardiovascular: Cardiovascular: Reports dyspnea on exertion Respiratory: Respiratory: Reports cough, Reports dyspnea on exertion and Reports wheezing Gastrointestinal: Gastrointestinal: Reports no additional gastrointestinal complaints Genitourinary: Genitourinary: Reports no additional female genitourinary complaints Endocrine: Endocrine: Reports fatigue Allergic/Immunologic: Allergic/Immunologic: Reports wheezing [facility] Medical History Hypoxic respiratory failure Nocturnal hypoxemia HENRY (obstructive sleep apnea) COPD (chronic obstructive pulmonary disease) Diabetes mellitus COPD exacerbation Crack cocaine use Hyperkalemia Metabolic acidosis Leukocytosis Chest discomfort Chronic renal failure, stage 2 (mild) SOB (shortness of breath) Asthma Smoker Rotator cuff tendonitis GERD (gastroesophageal reflux disease) Chronic idiopathic constipation Bustos's esophagus Depression High triglycerides Gastroparesis Carpal tunnel syndrome of right wrist Nausea & vomiting Hernia Acute and chronic respiratory failure, unspecified whether with hypoxia or hypercapnia HTN (hypertension) Obesity (BMI 30-39.9) Knee pain, bilateral Family History Father Heart disease HENRY (obstructive sleep apnea) Family history of breast cancer Mother Asthma Emphysema, unspecified Bronchitis Smoker Alcoholism Bone marrow disease Maternal Grandmother Diabetes Surgical History History of cholecystectomy (~1988) History of carpal tunnel release Hx of tubal ligation History of pubovaginal sling (~2015) History of umbilical hernia repair (~2001) Hx of section History of open reduction and internal fixation (ORIF) procedure History of esophagogastroduodenoscopy (EGD) Social History Household Members: Family Household Members Other:: daughter Housing: House Are you a primary home health care physician to a significant other at home: No Do you presently have visiting nurse or other home services: Yes Unable to assess alcohol history related to: Unknown Alcohol intake: former Comment: Sleeping Patient Tobacco Use Status: Current everyday Tobacco user Tobacco use type: Cigarette Cigarette Packs Per Day: 0.5 Cigarettes Per Day: 10.0 Years Smoked: 48 Smoked in Last 30 Days: Yes e-Cigarette/Vaping Use: Never Used Second Hand Smoke Exposure: Yes Use of substances other than those prescribed or required for medical reasons: Yes Substance Use Type: Crack/Cocaine Substance Use Frequency: Chronic Longstanding Last Used Substance: Days (ago) Any prior treatment program specific to substance use: No Advance Directives: Yes Advance Directives on File: Yes Advance Directives Date on File: 12/19/23 Patient : No service: No Current occupational status: disabled 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 Meds Allergies Allergy/AdvReac Type Severity Reaction Status Date / Time doxycycline Allergy Severe Swelling Verified 04/17/24 03:12 varenicline [From CHANTIX] Allergy Severe ANAPHYLAXIS Verified 04/17/24 03:12 azithromycin Allergy Intermediate Rash Verified 04/17/24 03:12 barium sulfate Allergy Intermediate angioedema Verified 04/17/24 03:12 cetirizine Allergy Mild Rash Verified 04/17/24 03:12 famotidine Allergy Mild Rash Verified 04/17/24 03:12 linaclotide [Linzess] Allergy Mild Rash Verified 04/17/24 03:12 Home Medications ?Medication ?Instructions ?Recorded ?Confirmed ?Last Taken ?Type dexlansoprazole 60 mg 60 mg PO DAILY@0630 12/16/23 04/05/24 04/04/24 History capsule,biphase delayed release (Dexilant) ipratropium bromide 0.02 % 2.5 ml inhalation Q6H PRN Wheezing 02/13/24 04/05/24 02/12/24 History solution for inhalation nicotine 21 mg/24 hr daily 1 patch transdermal DAILY 04/05/24 04/05/24 04/04/24 History transdermal patch prednisone 10 mg tablet See Rx Instructions .Route .COMPLEX 04/05/24 04/05/24 04/04/24 History Physical Exam Vital Signs and Narrative: Vital Signs: Last Vital Signs Temp 97.4 F 04/17/24 03:33 Pulse 123 H 04/17/24 03:36 Resp 20 04/17/24 04:08 BP 105/50 L 04/17/24 03:33 Pulse Ox 98 04/17/24 03:33 O2 Del Method BiPAP 04/17/24 03:33 Oxygen Flow Rate 8 04/17/24 03:10 BMI result Body Mass Index 36.0 Middle-aged female lying in bed in mild distress on BiPAP Neck supple, no JVD Regular rate and rhythm, S1-S2 heard Tachypnea with bilateral wheezing Abdomen soft nontender, no guarding, no rigidity Patient is awake, alert and oriented to self, place, time and person ; no focal motor deficit Psych: Normal mood No pedal edema Results Labs 04/17/24 03:21 04/17/24 03:21 Labs: Laboratory Results - last 24 hr 04/17/24 04/17/24 04/17/24 03:21 03:27 03:40 MCV 76.4 L MCH 23.4 L MCHC 30.7 L RDW 18.1 H Plt Count 508 H MPV 9.1 L Immature Gran % (Auto) 0.4 Neut % (Auto) 55.8 Lymph % (Auto) 35.7 [place] % (Auto) 6.6 Eos % (Auto) 1.2 Baso % (Auto) 0.3 Lymph # (Auto) 7.0 H [place] # (Auto) 1.3 H Eos # (Auto) 0.2 Baso # (Auto) 0.1 Abs Immat Gran (auto) 0.07 H Absolute Neuts (auto) 11.0 H Absolute Nucleated RBC 0.000 Nucleated RBC % (auto) 0.0 Smear Tech's Comments VERIFIED APTT 28.5 VBG pH 7.35 VBG pCO2 49 VBG pO2 59 VBG HCO3 27 H VBG O2 Saturation 84.0 VBG Base Excess 1.3 Anion Gap 18 Estim Creat Clear Calc 75.0 Estimated GFR > 60 Random Glucose 82 Lactic Acid 2.2 H* Calcium 9.7 Magnesium 1.8 Total Bilirubin 0.3 AST 11 ALT 14 Alkaline Phosphatase 87 Troponin I High Sens 29.4 H D B-Natriuretic Peptide 98 Total Protein 7.5 Albumin 4.3 Lipase 30 Influenza Type A (PCR) NEGATIVE Influenza Type B (PCR) NEGATIVE RSV RNA Qual (PCR) NEGATIVE SARS-CoV-2 RNA (RT-PCR) NEGATIVE Imaging Radiologist's Impressions: Impressions Chest X-Ray 04/17/24 03:11 IMPRESSION: No evidence for active cardiopulmonary disease. Electronically signed by: Chapo Carreon MD 04/17/2024 04:14 AM EDT RP Assessment and Plan (1) Acute hypoxemic respiratory failure: Status: Acute (2) Acute exacerbation of chronic obstructive airways disease: Status: Acute Plan This is a 53-year-old female with pertinent history of chronic hypoxemic respiratory failure due to COPD-asthma overlap syndrome, HENRY/OHS on nocturnal BiPAP, yil-roqpthn-lczotvkzf diabetes mellitus, hypertension, gastroesophageal reflux disease, active tobacco use disorder, history of cocaine use, obesity who presents to the emergency department for evaluation of dyspnea. #. Acute on chronic hypoxic respiratory failure due to acute exacerbation of COPD-asthma overlap syndrome: Will admit patient with supplemental oxygen, scheduled and p.r.n. DuoNebs. IV steroids. Continue home inhaler #. Reactive leukocytosis, chronic. No sepsis #. Acute lactic acidosis due to hypoxia and albuterol use. No sepsis #. Tobacco use disorder: Counseled regarding cessation. Nicotine patch while in the hospital. #. HENRY/OHS: Patient is noncompliant with NIV, continue BiPAP at bedtime #. Fuo-aoksqlz-sicyoxoyq diabetes mellitus with hyperglycemia: Initiating Accu-Cheks with sliding scale insulin #. Hypertension: Continue home antihypertensives #. Gastroesophageal reflux disease: On famotidine #. Obesity: Counseled regarding diet and exercise Med rec pending DVT prophylaxis: Lovenox Full code Admit as inpatient and will require two night minimum hospital stay for supplemental oxygen, IV steroids (as above), which is not possible in a lesser acute setting. Quality Stroke Does the patient have a stroke diagnosis?: No VTE Prior VTE?: No VTE Risk Level:: Medical - moderate - high VTE Device Contraindication: Treatment Not Indicated VTE Drug Contraindication: N/A - Med Ordered
[2024-04-17 05:44] LABS: Reflex Lactate? Lactic Acid Added
--- NOTE | 2024-04-17 06:06 | PC.NURSE ---
Lactic back at 2.2, WBC 19.6, and corner bead operator Janay made aware, this RN signed off to charge machine operator for this pt.
[2024-04-17 07:44] LABS: Glucose, Whole Blood 235 mg/dL (60-115)
[2024-04-17] MEDS: Enoxaparin Sodium 40 MG/0.4 ML SYRINGE SUBCUT (07:52)
[2024-04-17] MEDS: Nicotine 14 MG PATCH.TD24 TRANSDERMA (07:52)
[2024-04-17] MEDS: Insulin Lispro 100 UNIT/ML 3 ML VIAL SUBCUT ×4 (07:52→22:10)
[2024-04-17 09:54] LABS: ~Lactic Acid-LAB USE ONLY 2.3 mmol/L (0.5-2.0)
[2024-04-17 09:56] LABS: Troponin-I High Sensitivity 19.3 ng/L (<3.5-17.0)
[2024-04-17 10:13] LABS: Cancel Lactic Acid Canceled
[2024-04-17] MEDS: methylPREDNISolone Sod Succ 40 MG/ML VIAL IVPUSH ×2 (10:25→22:09)
--- NOTE | 2024-04-17 10:45 | PHA.MEDREC ---
Addendum entered by Chasity Erickson RPh 04/17/24 11:34: Reviewed by [facility] Original Note: Pharmacy Consult ? Medication Reconciliation Pharmacy has completed the medication reconciliation. Spoke to patient to confirm med list. Patient states she in no longer on Levofloxacin 750 mg and Prednisone taper dose, last filled 04/01/24 for 20 days supply. End date should be 04/21/24, however patient stated she in not taking it. patient says the last time she took her medications was yesterday 04/17/24
[2024-04-17 11:07] LABS: Glucose, Whole Blood 304 mg/dL (60-115)
[2024-04-17 11:41] LABS: Amphetamine Screen Urine Not Detected (Not Detect); Barbiturates, Urine Not Detected (Not Detect); Benzodiazepines Screen Urine Not Detected (Not Detect); Buprenorphine Scr Not Detected (Not Detect); Cannabinoid Screen Urine Not Detected (Not Detect); Cocaine Screen Urine POSITIVE (Not Detect); Fentanyl, urine Not Detected (Not Detect); Methadone Screen, Urine Not Detected (Not Detect); Opiate Screen Urine POSITIVE (Not Detect); Oxycodone Screen Urine Not Detected (Not Detect); Phencyclidine Screen Urine Not Detected (Not Detect)
[2024-04-17] MEDS: Nicotine 21 MG PATCH.TD24 TRANSDERMA (13:21)
--- NOTE | 2024-04-17 13:29 | MHC.CM.PN ---
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
--- NOTE | 2024-04-17 14:40 | P.EN_ITS ---
Event Note Date of Service: 04/17/24 Event Note: Seen and examined this follow-up for COPD exacerbation Reports feeling significant improvement since admission No shortness a breath or chest pain at this time Patient awake, alert and able to speak in complete sentences Continues to smoke 1 pack of cigarettes daily as well as crack cocaine a few times a month further Management as per admission H&P Acute on chronic hypoxic respiratory failure due to acute exacerbation of COPD- asthma overlap syndrome: Will admit patient with supplemental oxygen, scheduled and p.r.n. DuoNebs. IV steroids. Continue home inhaler Reactive leukocytosis, chronic. No sepsis Acute lactic acidosis due to hypoxia and albuterol use. No sepsis Tobacco use disorder: Counseled regarding cessation. Nicotine patch HENRY/OHS: Patient is noncompliant with NIV, continue BiPAP at bedtime Eeo-ylnqbvf-cygjxvqke diabetes mellitus with hyperglycemia: Hyperglycemia due to steroid use SSI, POCs, ADA diet Hypertension: Continue home antihypertensives Gastroesophageal reflux disease: On famotidine Obesity: BMI 39. Counseled regarding diet and exercise elevated troponin no chest pain flat dvt ppx - lovenox Time Spent With Patient Time: Total time managing care of this patient today ____ minutes.
--- NOTE | 2024-04-17 16:16 | MHC.RECOVRN ---
Attempted to meet with pt, pt with respiratory, will follow up Saturday.
[2024-04-17 16:19] LABS: Glucose, Whole Blood 339 mg/dL (60-115)
[2024-04-17] MEDS: 0.9 % Sodium Chloride Flush 3 ML SYRINGE IVFLUSH ×2 (16:33→22:33)
[2024-04-17 19:57] LABS: Glucose, Whole Blood 351 mg/dL (60-115)
[2024-04-17] MEDS: Calcium + Vitamin D 250 MG TABLET 500 MG PO (22:10)
[2024-04-17] MEDS: Theophylline Anhydrous ER 400 MG TAB.ER.24H PO (22:10)
[2024-04-17] MEDS: TiZANidine HCL 4 MG TABLET PO (22:32)
[2024-04-17] MEDS: Gabapentin 400 MG CAPSULE 800 MG PO (22:32)
[2024-04-18 03:04] VITALS: BP 132/79; PULSE 104; RESP 16; TEMP 36.1; O2SAT 90
[2024-04-18] MEDS: Omeprazole 40 MG CAPSULE.DR PO (06:12)
[2024-04-18] MEDS: Enoxaparin Sodium 40 MG/0.4 ML SYRINGE SUBCUT ×2 (06:12→06:13)
[2024-04-18 06:30] LABS: Basophils Percent Auto 0.2 % (0-2); Hematocrit 39.4 % (37.0-47.0); Hemoglobin 11.6 g/dl (12.0-16.0); Imm Gran Abs Auto 0.08 X10*3/uL (0.00-0.03); Imm Gran Pct Auto 0.4 % (0.0-0.4); Lymphocytes Absolute Auto 1.1 X10*3/uL (1.2-4.9); Lymphocytes Percent Auto 5.9 % (20-40); MANUAL DIFF FLAG SCAN; Mean Corpuscular HGB Conc 29.4 g/dl (31.0-35.0); Mean Corpuscular Hemoglobin 22.9 pg (27.0-33.0); Mean Corpuscular Volume 77.9 fL (80.0-98.0); Mean Platelet Volume 9.5 fL (9.4-12.3); Monocytes Absolute Auto 0.6 X10*3/uL (0.1-1.2); Neutrophils Absolute Auto 16.9 x10*3/uL (2.0-8.3); Neutrophils Percent Auto 90.5 % (45-73); Platelet Count 458 X10*3/uL (160-400); Red Blood Count 5.06 X10*6/uL (4.20-5.50); Red Cell Distribution Width 17.8 % (11.0-16.0); SCAN SMEAR FLAG 1; White Blood Count 18.7 X10*3/uL (4.8-10.8)
[2024-04-18 07:00] LABS: Anion Gap 16 (12-20); Blood Urea Nitrogen 38 mg/dL (9-16); Calcium 10.4 mg/dL (8.4-10.2); Carbon Dioxide 28 mmol/L (22-29); Chloride 99 mmol/L (96-108); Estimated Glomerular Filt Rate 54; Glucose Random 267 mg/dL (60-115); SLIDE REVIEW VERIFIED; Sodium 138 mmol/L (135-145)
[2024-04-18 07:20] VITALS: BP 142/79; PULSE 92; RESP 18; TEMP 36.5; O2SAT 96
[2024-04-18 07:23] VITALS: PULSE 92; RESP 18; O2SAT 96
[2024-04-18] MEDS: Albuterol/Iprat 2.5/0.5MG 3 ML AMPUL.NEB INHALE (07:23)
[2024-04-18 07:27] LABS: Glucose, Whole Blood 217 mg/dL (60-115)
[2024-04-18] MEDS: 0.9 % Sodium Chloride Flush 3 ML SYRINGE IVFLUSH (07:36)
[2024-04-18] MEDS: Insulin Lispro 100 UNIT/ML 3 ML VIAL SUBCUT (07:38)
[2024-04-18] MEDS: Aspirin Enteric Coated 81 MG TABLET.DR PO (07:39)
[2024-04-18] MEDS: Sertraline HCL 100 MG TABLET PO (07:39)
[2024-04-18] MEDS: Theophylline Anhydrous ER 400 MG TAB.ER.24H PO (07:39)
[2024-04-18] MEDS: Nicotine 21 MG PATCH.TD24 TRANSDERMA (07:40)
[2024-04-18] MEDS: Furosemide 20 MG TABLET PO (07:42)
[2024-04-18] MEDS: Acetaminophen 325 MG TABLET 650 MG PO (07:48)
[2024-04-18] MEDS: Gabapentin 400 MG CAPSULE 800 MG PO (07:49)
[2024-04-18] MEDS: Benzonatate 100 MG CAPSULE PO (07:52)
--- NOTE | 2024-04-18 09:54 | P.DS_ITS ---
DS: Providers Provider Date of Service: 04/18/24 Date of admission: 04/17/24 05:38 Date of discharge: 04/18/24 Primary care physician: DOTTY Lazcano Consults: 04/17/24 05:43 Addiction Medicine Routine Consulting Provider: Addiction Covering Reason for consultation: Cocaine use disorder Attending physician on discharge: Niru Boyd Discharging clinician: Vandana Cline DS: Diagnosis Discharge Diagnosis (1) Acute hypoxemic respiratory failure: Status: Acute (2) Acute exacerbation of chronic obstructive airways disease: Status: Acute DS: Summary Hospital Course Hospital Course: From H&P on the day of admission This is a 53-year-old female with pertinent history of chronic hypoxemic respiratory failure due to COPD-asthma overlap syndrome, HENRY/OHS on nocturnal BiPAP, zhn-joyzpax-cucsrbrjt diabetes mellitus, hypertension, gastroesophageal reflux disease, active tobacco use disorder, history of cocaine use, obesity who presents to the emergency department for evaluation of dyspnea. Patient states her symptoms started 2 days prior to presentation. She has been having nonproductive cough along with dyspnea which is worse with exertion. Has associated wheezing. No relief with home inhalers. Admits he is noncompliant with NIV at home during bedtime. Uses 1-2 L supplemental oxygen during the day. Patient was found to be hypoxic on home O2 by EMS. Admits to using crack cocaine 1 day prior to presentation. No chest pain or palpitations. No fever, chills, chest discomfort, abdominal pain, changes in urinary or bowel habits. Does not use oxygen at home. Admits that she continues to smoke cigarettes daily In the emergency department, patient with wheezing despite multiple DuoNeb treatments. Also received IV steroids Acute on chronic hypoxic respiratory failure due to acute exacerbation of COPD/asthma overlap syndrome in the setting drug use. Patient continues to be an active smoker and intermittently smokes crack cocaine. This is likely contributing to recurrent exacerbations. She is also noncompliant with her nocturnal BiPAP. She was treated with systemic steroids and breathing treatments. Chest x-ray showed no evidence of pneumonia, she has recently completed antibiotics for treatment of pneumonia from last admission. Her breathing improved quickly and she is currently on room air this morning and was able to ambulate up and down the [place] with no shortness of breath. She is eager to return home. Leukocytosis due to steroid use, she has remained afebrile and preliminary blood cultures are negative at 24 hours. The importance of smoking cessation and avoidance of other substances was discussed in detail. Time Attestation Discharge Coordination Time (in mins): 35 Quality: Safe Use of Opioids Does Pt have an Active Cancer Diagnosis on the Problem List?: No Quality: Stroke Does the patient have a stroke diagnosis?: No Physical Exam Vital Signs: Vital Signs: Last Vital Signs Temp 97.7 F 04/18/24 07:20 Pulse 92 04/18/24 07:23 Resp 18 04/18/24 07:23 BP 142/79 H 04/18/24 07:20 Pulse Ox 96 04/18/24 07:20 O2 Del Method Nasal Cannula 04/18/24 07:20 O2 Flow Rate 2 04/18/24 07:20 Oxygen Flow Rate 8 04/17/24 03:10 BMI result Body Mass Index 35.8 Const: General: cooperative, comfortable, no acute distress, alert and awake Nutritional Appearance: obese Orientation/consciousness: patient oriented x3 Resp: Other: no wheeze Effort & Inspection: normal respiratory effort, able to speak in complete sentences, no respiratory distress and no use of accessory muscles Cardio: Rate: regular rate GI: Inspection: No distended Palpation (GI): Soft to palpation Neuro: General: patient oriented x3, moves all extremities and CN's II-XI intact bilaterally Extrem: General: Yes no pedal edema DS: Data Data Completed and Pending Completed studies during hospitalization [Text1]: Procedures Assistance with Respiratory Ventilation, Less than 24 Consecutive Hours, Continuous Positive Airway Pressure (04/05/24) Insertion of Endotracheal Airway into Trachea, Via Natural or Artificial Opening (11/03/20) Insertion of Infusion Device into Superior Vena Cava, Percutaneous Approach (11/03/20) Respiratory Ventilation, Less than 24 Consecutive Hours (11/03/20) Labs on day of discharge: Laboratory Results - last 24 hr 04/17/24 04/17/24 04/17/24 09:23 10:35 11:04 WBC RBC Hgb Hct MCV MCH MCHC RDW Plt Count MPV Immature Gran % (Auto) Neut % (Auto) Lymph % (Auto) [place] % (Auto) Eos % (Auto) Baso % (Auto) Lymph # (Auto) [place] # (Auto) Eos # (Auto) Baso # (Auto) Abs Immat Gran (auto) Absolute Neuts (auto) Absolute Nucleated RBC Nucleated RBC % (auto) Smear Tech's Comments Sodium Potassium Chloride Carbon Dioxide Anion Gap BUN Creatinine Estim Creat Clear Calc Estimated GFR POC Glucose 304 H Random Glucose Lactic Acid F/U @ 2Hr 2.3 H* Calcium Troponin I High Sens 19.3 H Urine Opiates Screen POSITIVE H Ur Buprenorphine Scrn Not Detected Ur Oxycodone Screen Not Detected Urine Methadone Screen Not Detected Urine Fentanyl Screen Not Detected Ur Barbiturates Screen Not Detected Ur Phencyclidine Scrn Not Detected Ur Amphetamines Screen Not Detected U Benzodiazepines Scrn Not Detected Urine Cocaine Screen POSITIVE H U Marijuana (THC) Screen Not Detected 04/17/24 04/17/24 04/18/24 16:06 19:16 05:49 WBC 18.7 H RBC 5.06 Hgb 11.6 L Hct 39.4 MCV 77.9 L MCH 22.9 L MCHC 29.4 L RDW 17.8 H Plt Count 458 H MPV 9.5 Immature Gran % (Auto) 0.4 Neut % (Auto) 90.5 H Lymph % (Auto) 5.9 L [place] % (Auto) 3.0 Eos % (Auto) 0.0 Baso % (Auto) 0.2 Lymph # (Auto) 1.1 L [place] # (Auto) 0.6 Eos # (Auto) 0.0 Baso # (Auto) 0.0 Abs Immat Gran (auto) 0.08 H Absolute Neuts (auto) 16.9 H Absolute Nucleated RBC 0.000 Nucleated RBC % (auto) 0.0 Smear Tech's Comments VERIFIED Sodium 138 Potassium 5.0 D Chloride 99 Carbon Dioxide 28 Anion Gap 16 BUN 38 H Creatinine 1.06 Estim Creat Clear Calc 55.0 Estimated GFR 54 POC Glucose 339 H 351 H* Random Glucose 267 H Lactic Acid F/U @ 2Hr Calcium 10.4 H D Troponin I High Sens Urine Opiates Screen Ur Buprenorphine Scrn Ur Oxycodone Screen Urine Methadone Screen Urine Fentanyl Screen Ur Barbiturates Screen Ur Phencyclidine Scrn Ur Amphetamines Screen U Benzodiazepines Scrn Urine Cocaine Screen U Marijuana (THC) Screen 04/18/24 07:23 WBC RBC Hgb Hct MCV MCH MCHC RDW Plt Count MPV Immature Gran % (Auto) Neut % (Auto) Lymph % (Auto) [place] % (Auto) Eos % (Auto) Baso % (Auto) Lymph # (Auto) [place] # (Auto) Eos # (Auto) Baso # (Auto) Abs Immat Gran (auto) Absolute Neuts (auto) Absolute Nucleated RBC Nucleated RBC % (auto) Smear Tech's Comments Sodium Potassium Chloride Carbon Dioxide Anion Gap BUN Creatinine Estim Creat Clear Calc Estimated GFR POC Glucose 217 H Random Glucose Lactic Acid F/U @ 2Hr Calcium Troponin I High Sens Urine Opiates Screen Ur Buprenorphine Scrn Ur Oxycodone Screen Urine Methadone Screen Urine Fentanyl Screen Ur Barbiturates Screen Ur Phencyclidine Scrn Ur Amphetamines Screen U Benzodiazepines Scrn Urine Cocaine Screen U Marijuana (THC) Screen Preliminary micro results at discharge 04/17/24 03:40 Blood Culture - Preliminary Blood - Venous No growth after 24 hours. 04/17/24 03:21 Blood Culture - Preliminary Blood - Venous No growth after 24 hours. Discharge Plan Discharge Anticipated Discharge Date/Time: 04/18/24 10:19 Patient Disposition: Home, Self-Care Discharge Diagnosis: Acute on chronic respiratory failure due to exacerbation of asthma/copd Referrals: Joe Hale, [facility]- [Primary Care Provider] - 1 Week Discharge Medications: New prednisone 20 mg tablet 40 mg PO DAILY 5 Days Qty: 10 0RF Continued (DME) lancets [FreeStyle Lancets] 28 gauge misc See Rx Instructions .ROUTE .MEDSUPPLY Qty: 100 1RF Rx Instructions: Use to check blood sugar daily or if symptomatic hypo/hypergylcemia (DME) 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 meter [FreeStyle Lite Meter] Kit See Rx Instructions .ROUTE .MEDSUPPLY Qty: 1 0RF Rx Instructions: Use to check blood sugar daily or if symptomatic for hypo/hyperglycemia (DME) FreeStyle Lite Strips Strip See Rx Instructions .ROUTE .MEDSUPPLY Qty: 100 1RF Rx Instructions: Use to check blood sugar daily or if symptomatic hypo/hypergylcemia calcium carbonate-vitamin D3 500 mg-10 mcg (400 unit) tablet 1 tab PO BID 30 Days Qty: 60 6RF furosemide 20 mg tablet 20 mg PO DAILY Qty: 90 3RF acetaminophen 650 mg tablet extended release 650 mg PO Q12H PRN (Reason: pain) 30 Days Qty: 60 0RF aspirin 81 mg tablet,delayed release (DR/EC) 81 mg PO DAILY 90 Days Qty: 90 1RF theophylline 400 mg tablet extended release 24 hr 400 mg PO BID 90 Days Qty: 180 4RF ibuprofen 800 mg tablet 800 mg PO BID PRN (Reason: pain) Qty: 60 0RF Rx Instructions: please use sparingly due to diabetes sertraline 100 mg tablet 100 mg PO DAILY Qty: 90 0RF gabapentin 800 mg tablet 800 mg PO TID PRN (Reason: Pain) 30 Days Qty: 90 0RF glipizide 5 mg tablet 5 mg PO DAILY Qty: 90 0RF tizanidine 4 mg tablet 4 mg PO Q12H PRN (Reason: muscle spasm) 30 Days Qty: 60 0RF Rx Instructions: do not take concurrently with famotidine albuterol sulfate [Ventolin HFA] 90 mcg/actuation HFA aerosol inhaler 2 puff inhalation Q6H PRN (Reason: for wheezing) Qty: 1 6RF nicotine 21 mg/24 hr Patch 24 Hour 1 patch TRANSDERMAL DAILY PRN (Reason: Nicotine Cravings) Stiolto Respimat 2.5-2.5 mcg/actuation mist 2 puff INHALATION DAILY dexlansoprazole [Dexilant] 60 mg capsule,biphase delayed releas 60 mg PO DAILY@0630 ipratropium bromide 0.02 % solution 2.5 ml inhalation Q6H PRN (Reason: Wheezing) losartan 25 mg tablet 25 mg PO DAILY 90 Days Qty: 90 0RF Discharge Orders: Discharge Order (Routine); Ordered 04/18/24 Ordered By: Vandana Cline Activity on Discharge: As tolerated Stand Alone Forms: Patient Portal Discharge page Print Language: Persian Care Plan Goals: See below Health Concerns: Acute on chronic respiratory failure due to underlying COPD, active tobacco use and cocaine use Plan of Treatment: Complete course of steroids as prescribed Call to schedule a follow-up appointment with PCP in the next 1 week Call to schedule follow-up appointment with pulmonology Recommend cessation from tobacco and cocaine Recommend continued use of BiPAP at night Returned to the emergency department with any new or worsening symptoms Assessment: See discharge summary
--- NOTE | 2024-04-18 10:25 | MHC.CM.PN ---
PT WILL DC HOME TODAY WITH RESUMPTION OF [employer] PT WAS ACTIVE WITH [facility], HOWEVER THEY HAVE DISCHARGED HER FROM SERVICE PT AWARE [facility] WILL NOT BE RETURNING [facility]SPORT BEING ARRANGED
[2024-04-18] MEDS: methylPREDNISolone Sod Succ 40 MG/ML VIAL IVPUSH (10:47)
== END 2024-04-18 11:00 | disposition home or self-care (01) | DRG 140 ==
LOC: HO.ED 05:06 → HO.EDOVER 05:44 → HO.S3 14:28
PROVIDERS: Admitting Provider Student in an Organized Health Care Education/Training Program; Emergency Provider Emergency Medicine Emergency Medical Services; PCP Nurse Practitioner Family; Visit Provider Physician Assistant Medical
DX: J44.1 Chronic obstructive pulmonary disease with (acute) exacerbation (principal); J96.01 Acute respiratory failure with hypoxia; E87.21 Acute metabolic acidosis; E66.2 Morbid (severe) obesity with alveolar hypoventilation; J45.901 Unspecified asthma with (acute) exacerbation; Z99.81 Dependence on supplemental oxygen; F17.210 Nicotine dependence, cigarettes, uncomplicated; Z71.3 Dietary counseling and surveillance; K21.9 Gastro-esophageal reflux disease without esophagitis; E11.65 Type 2 diabetes mellitus with hyperglycemia; F14.90 Cocaine use, unspecified, uncomplicated; Z68.35 Body mass index [BMI] 35.0-35.9, adult; Z91.199 Patient's noncompliance with other medical treatment and regimen due to unspecified reason; Z20.822 Contact with and (suspected) exposure to COVID-19; Z71.6 Tobacco abuse counseling; Z79.82 Long term (current) use of aspirin; Z79.84 Long term (current) use of oral hypoglycemic drugs; Z79.899 Other long term (current) drug therapy
CPT/HCPCS: 0241U; 36415; 71045; 80048; 80053; 80307; 82803; 82947; 83605; 83690; 83735; 83880; 84484; 85025; 85730; 87040; 93005; 94640; 99285; J1650; J2270; J2405; J2919; J3475

== ENCOUNTER → 2024-04-17 03:13 | Outpatient (BNV) | payer OTHER, SELFPAY | PROVIDERS: Admitting Provider Student in an Organized Health Care Education/Training Program; Emergency Provider Emergency Medicine Emergency Medical Services; PCP Nurse Practitioner Family; Visit Provider Internal Medicine | DX: R06.02 Shortness of breath (principal) | CPT/HCPCS: 93010 ==

== ENCOUNTER → 2024-04-17 05:38 | Outpatient (BNV) | payer OTHER, SELFPAY | PROVIDERS: Admitting Provider Student in an Organized Health Care Education/Training Program; Emergency Provider Emergency Medicine Emergency Medical Services; PCP Nurse Practitioner Family; Visit Provider Student in an Organized Health Care Education/Training Program | DX: J96.01 Acute respiratory failure with hypoxia (principal); J44.1 Chronic obstructive pulmonary disease with (acute) exacerbation; D72.829 Elevated white blood cell count, unspecified; E87.29 Other acidosis | CPT/HCPCS: 99222; 99239; 99499 ==

== ENCOUNTER 2024-04-23 15:53 | Outpatient (AMB) | payer OTHER, SELFPAY ==
[2024-04-23 16:04] VITALS: BP 130/80; PULSE 97; O2SAT 95; BMI 34.9
--- NOTE | 2024-04-23 16:04 | A.OFFPC_ITS ---
Vital Signs 04/23/24 16:04 Height 4 ft 11 in Weight 173 lb BMI 34.9 BP 130/80 Blood Pressure Location Rt brachial Position Sitting Pulse 97 Pulse Source Pulse Oximeter Pulse Oximetry (%) 95 Oxygen Delivery Method Room Air Intake Visit Reasons: HDF ~ Post hospital discharge FU Intake Note: pt is here for HDF f/up Vascular Radiologist Required: No Accompanied by: Self / Same As Patient Allergies doxycycline Allergy (Severe, Verified 04/23/24 16:04) Swelling varenicline [From CHANTIX] Allergy (Severe, Verified 04/23/24 16:04) ANAPHYLAXIS azithromycin Allergy (Intermediate, Verified 04/23/24 16:04) Rash barium sulfate Allergy (Intermediate, Verified 04/23/24 16:04) angioedema cetirizine Allergy (Mild, Verified 04/23/24 16:04) Rash famotidine Allergy (Mild, Verified 04/23/24 16:04) Rash linaclotide [Linzess] Allergy (Mild, Verified 04/23/24 16:04) Rash Medication List - Last Reconciled 04/23/24 by LORIE Lowe-JERI acetaminophen ER 650 mg PO Q12H PRN 30 days albuterol sulfate 90 mcg/actuation (Ventolin HFA) 2 puffs inhalation Q6H PRN aspirin 81 mg PO DAILY 90 days blood sugar diagnostic (FreeStyle Lite Strips) Use to check blood sugar daily or if symptomatic hypo/hypergylcemia 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 meter (FreeStyle Lite Meter kit) Use to check blood sugar daily or if symptomatic for hypo/hyperglycemia calcium carbonate-vitamin D3 500 mg-10 mcg (400 unit) 1 tab PO BID 30 days dexlansoprazole (Dexilant) 60 mg PO DAILY@0630 furosemide 20 mg PO DAILY gabapentin 800 mg PO TID PRN 30 days glipizide 5 mg PO DAILY ibuprofen 800 mg PO BID PRN ipratropium bromide 2.5 mL inhalation Q6H PRN lancets (FreeStyle Lancets) Use to check blood sugar daily or if symptomatic hypo/hypergylcemia losartan 25 mg PO DAILY 90 days nicotine 1 patch transdermal DAILY PRN prednisone 40 mg (2 x 20 mg) PO DAILY 5 days sertraline 100 mg PO DAILY theophylline ER 400 mg PO BID 90 days tiotropium-olodaterol 2.5-2.5 mcg/actuation (Stiolto Respimat) 2 puffs inhalation DAILY tizanidine 4 mg PO Q12H PRN 30 days Tobacco use date assessed: 08/06/23 Dental Screening Dental Screen Date: 08/06/23 HPI HDF ~ Post hospital discharge FU HPI Details Pt was seen in the ER on 04/17 c/o shortness of breath. She was started on 8L of opxygen and given duoneb by EMS. Pt was placed on bipap and given solu-medrol, magnesium, zofran, and morphine. Labs showed: WBC count elevated at 19,600, platelet count elevated 508,000, high sensitive troponin I was elevated at 29.4, lactic acid elevated at 2.2. Venous blood gas revealed a pH of 7.35, pCO2 of 59 and a bicarb of 27. Chest XR showed no acute infiltrates. EKG was consistent with sinus tachycardia with no ST segment elevation or depression. Pt's symptoms improved significantly after treatment. Pt was admitted for acute on chronic hypoxic respiratory failure due to acute exacerbation of COPD/asthma overlap syndrome in the setting drug use. Pt's leukocytosis was due to steroid use. She remained afebrile and preliminary blood cultures were negative at 24 hours. Pt's breathing improved and she was on room air and able to ambulate before d/c. Pt continues to use cocaine (though has not used this in over a week per pt) and smoke cigarettes. Pt reports hoarse voice. She has seen ENT for this previously (last seen appears to be 2014). Will re-refer, though still encouraged to quite smoking and stop use of cocaine. Dangers reverbalized to pt. Will had psych reach out to pt for possible referral to addiction medicine. She also reports dysphagia (liquids and solids). She denies any CP, dizziness, CARPIO, does get intermittent SOB (COPD), sees pulmonary currently. EKG does show abnormality . No ST changes, will refer to cardiology and will order a echo. [facility] Medical History Hypoxic respiratory failure Nocturnal hypoxemia HENRY (obstructive sleep apnea) COPD (chronic obstructive pulmonary disease) Diabetes mellitus COPD exacerbation Crack cocaine use Hyperkalemia Metabolic acidosis Leukocytosis Chest discomfort Chronic renal failure, stage 2 (mild) SOB (shortness of breath) Asthma Smoker Rotator cuff tendonitis GERD (gastroesophageal reflux disease) Chronic idiopathic constipation Bustos's esophagus Depression High triglycerides Gastroparesis Carpal tunnel syndrome of right wrist Nausea & vomiting Hernia Acute and chronic respiratory failure, unspecified whether with hypoxia or hypercapnia HTN (hypertension) Obesity (BMI 30-39.9) Knee pain, bilateral Surgical History History of cholecystectomy (~1988) History of carpal tunnel release Hx of tubal ligation History of pubovaginal sling (~2015) History of umbilical hernia repair (~2001) Hx of section History of open reduction and internal fixation (ORIF) procedure History of esophagogastroduodenoscopy (EGD) Family History Father Heart disease HENRY (obstructive sleep apnea) Family history of breast cancer Mother Asthma Emphysema, unspecified Bronchitis Smoker Alcoholism Bone marrow disease Maternal Grandmother Diabetes Social History Household Members: Family Household Members Other:: daughter Housing: House Are you a primary career information specialist to a significant other at home: No Do you presently have visiting nurse or other home services: No Unable to assess alcohol history related to: Unknown Alcohol intake: former Comment: Sleeping Patient Tobacco Use Status: Current everyday Tobacco user Tobacco use type: Cigarette Cigarette Packs Per Day: 0.5 Cigarettes Per Day: 10.0 Years Smoked: 48 e-Cigarette/Vaping Use: Never Used Second Hand Smoke Exposure: No Substance Use Type: Crack/Cocaine Advance Directives Date on File: 12/19/23 service: No Current occupational status: disabled 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 1. Little interest or pleasure in doing things: nearly every day 2. Feeling down, depressed, or hopeless: nearly every day 3. Trouble falling or staying asleep, or sleeping too much: not at all 4. Feeling tired or having little energy: nearly every day 5. Poor appetite or overeating: nearly every day 6. Feeling bad about yourself - or that you are a failure or have let yourself or your family down: nearly every day 7. Trouble concentrating on things, such as reading the newspaper or watching television: not at all 8. Moving or speaking so slowly that other people could have noticed. Or the opposite - being so fidgety or restless that you have been moving around a lot more than usual: not at all 9. Thoughts that you would be better off or of hurting yourself in some way: not at all Total score: 15 Depression Screening Interpretation: Positive Depression Screening Done: Yes 60083 - PHQ-9 Billing: Yes Source: Developed by Drs. Dalton Nelson, Zoila Dowell, Parveen Erazo and colleagues, with an educational georgiana from [employer]. Thrive Questionnaire Date Thrive assessed: 04/23/24 I am a: Patient What is your living situation today?: I have a steady place to live Within the past 12 months, did the food you bought not last and you didn't have the money to get more?: Often true Within the past 12 months, did you worry whether your food would run out before you got money to buy more?: Sometimes True Do you have trouble paying for medicines?: Yes Do you have trouble getting transportation to medical appointments?: Yes Do you have trouble paying your heating and electricity bill?: No Do you have trouble taking care of your child, family member or friend?: No Do you have trouble with day-to-day activities such as bathing, preparing meals, shopping, managing finances, etc.?: Yes Are you currently unemployed and looking for a job?: No Are you interested in more education?: No Please select the resources that you would like help with: Food Currently or been in a relationship where the following occur: I choose not to answer THRIVE Score: 3 AUDIT C Alcohol Use Questionnaire (AUDIT-C) 1. How often do you have a drink containing alcohol?: Never 3. How often do you have six or more drinks on one occasion?: Never Total Score: 0 Score Reviewed/Action Taken: Yes BAHMAN-7 AMB Questionnaire BAHMAN-7 Date BAHMAN - 7 assessed: 04/23/24 Feeling nervous, anxious, or on edge: 2 = More than half the days Not being able to stop or control worryin = More than half the days Worrying too much about different things: 2 = More than half the days Trouble relaxin = More than half the days Being so restless that it is hard to sit still: 2 = More than half the days Becoming easily annoyed or irritable: 2 = More than half the days Feeling afraid as if something awful might happen: 0 = Not at all Total BAHMAN-7 score (0-4 normal; 5-9 mild; 10-14 moderate; 15-21 severe): 12 Source: Developed by Drs. Dalton Nelson, Zoila Dowell, Parveen Erazo and colleagues, with an educational georgiana from [employer]. BAHMAN-7 Assessment Billing BAHMAN-7 Assessment Tool: BAHMAN-7 Assessment 58928 Review of Systems Const Reports as per HPI Physical exam (Primary Care) Vital Signs: Last Vital Signs Pulse 97 04/23/24 16:04 BP 130/80 04/23/24 16:04 Pulse Ox 95 04/23/24 16:04 Oxygen Delivery Method Room Air 04/23/24 16:04 BMI result Body Mass Index 34.9 Tobacco/Smoking Status: Tobacco use Status Tobacco use date assessed 08/06/23 04/23/24 16:04 Patient Tobacco Use Status Current everyday Tobacco 04/23/24 16:04 Tobacco use type Cigarette 04/23/24 16:04 e-Cigarette/Vaping Use Never Used 04/23/24 16:04 PHQ-9: PHQ-9 Score PHQ-9: Total score 15 04/23/24 17:28 Depression Screening Interpretation: Positive Thrive Assessment: Date of Thrive Assessment Date Thrive assessed 04/23/24 04/23/24 16:09 Currently or been in a relationship where the following occur: I choose not to answer Const Other: speaking in full sentences General: cooperative Nutritional Appearance: obese Orientation/consciousness: patient oriented x3 Neck Neck: Yes no lymphadenopathy Lymphatic: no lymphadenopathy noted Resp Auscultation: wheezes throughout and diminished lung sounds Cardio Rate: regular rate Rhythm: abnormal rhythm Heart sounds: S1 normal heart sound present and S2 normal heart sound present Neuro General: patient oriented x3 Extrem Other: + sensation, with feet intact. less sensation noted to right foot (especially toes) with use of monofilament Psych Appearance: grossly normal Mental Status: mental status grossly normal Speech and movement: Normal speech and movement present Affect: normal affect Attitude: cooperative Thought process: Normal thought process present Thought content: Normal thought content present Insight: Good insight present (Psych) Judgement: Good judgement present (Psych) Coding Level of Care Code Est Pt Level 4 (05702) Diagnoses Cocaine use F14.90 COPD exacerbation J44.1 Type 2 diabetes mellitus with diabetic polyneuropathy, without long-term current use of insulin E11.42 Diabetes mellitus complication detail: with polyneuropathy Diabetes mellitus complication status: with neurologic complications Diabetes mellitus custodial insulin use: without intermediate frame tender use Diabetes mellitus type: type 2 Cocaine abuse F14.10 Abnormal EKG R94.31 Hoarseness of voice R49.0 Additional Codes BAHMAN-7 Assessment Billing - BAHMAN-7 Assessment Tool: BAHMAN-7 Assessment [id number] ([id number]) Assessment & Plan Assessment & Plan (1) Cocaine use: Code(s): F14.90 - Cocaine use, unspecified, uncomplicated Category: Social Hx Plan: sent note to psych for possible addicton med referral (2) COPD exacerbation: Code(s): J44.1 - Chronic obstructive pulmonary disease with (acute) exacerbation Category: Medical Plan: sees pulmonary, satting well on RA (3) Diabetes mellitus: Code(s): E11.9 - Type 2 diabetes mellitus without complications Category: Medical Qualifiers: Diabetes mellitus complication detail: with polyneuropathy Diabetes mellitus complication status: with neurologic complications Diabetes mellitus custodial insulin use: without custodial use Diabetes mellitus type: type 2 Qualified Code(s): E11.42 - Type 2 diabetes mellitus with diabetic polyneuropathy Plan: reports being in the 120s and 130s, blood work ordered with microalbumin and A1c (4) Cocaine abuse: Comment: Had to reschedule 2021 EGD related to recent use Code(s): F14.10 - Cocaine abuse, uncomplicated Category: Medical (5) Abnormal EKG: Code(s): R94.31 - Abnormal electrocardiogram [ECG] [EKG] Category: Medical Plan: echo and referred to cardio. No active CP. (6) Hoarseness of voice: Code(s): R49.0 - Dysphonia Category: Medical Plan: referred to ENT for a follow up Plan The patient agreed to the use of a medical billing instructor for this encounter. Scribed for KATINA Rubio by Sheeba Mares medical billing instructor, on 04/23/2024 at 16:40 EST. Orders: Orders FL Modified Barium Swallow Today F14.90 - Cocaine use, unspecified, uncomplicated, J44.1 - Chronic obstructive pulmonary disease with (acute) exacerbation Comprehensive [place]. Panel Fast Today E11.42 - Type 2 diabetes mellitus with diabetic polyneuropathy, F14.90 - Cocaine use, unspecified, uncomplicated UA CC w/rflx Micro + Cult Today E11.42 - Type 2 diabetes mellitus with diabetic polyneuropathy, F14.90 - Cocaine use, unspecified, uncomplicated CA echo transthoracic complete Today E11.42 - Type 2 diabetes mellitus with diabetic polyneuropathy, F14.90 - Cocaine use, unspecified, uncomplicated, J44.1 - Chronic obstructive pulmonary disease with (acute) exacerbation, R94.31 - Abnormal electrocardiogram [ECG] [EKG] Complete Blood Count Auto Diff Today E11.42 - Type 2 diabetes mellitus with diabetic polyneuropathy, F14.90 - Cocaine use, unspecified, uncomplicated TSH reflex Free T4 Today E11.42 - Type 2 diabetes mellitus with diabetic polyneuropathy, F14.90 - Cocaine use, unspecified, uncomplicated Lipid Panel Today E11.42 - Type 2 diabetes mellitus with diabetic polyneuropathy, F14.90 - Cocaine use, unspecified, uncomplicated Microalbumin, Random (w Creat) Today E11.42 - Type 2 diabetes mellitus with diabetic polyneuropathy, F14.90 - Cocaine use, unspecified, uncomplicated Hemoglobin A1c Today E11.42 - Type 2 diabetes mellitus with diabetic polyneuropathy, F14.90 - Cocaine use, unspecified, uncomplicated Referrals Cardiology Referral F14.10 - Cocaine abuse, uncomplicated, J44.1 - Chronic obstructive pulmonary disease with (acute) exacerbation, R94.31 - Abnormal electrocardiogram [ECG] [EKG] Ear/Nose/Throat Referral R49.0 - Dysphonia Ophthalmology Referral E11.42 - Type 2 diabetes mellitus with diabetic polyneuropathy Medications: New atorvastatin 20 mg PO BEDTIME 90 tabs 0RF 90 days
== END 2024-04-23 17:20 | disposition home or self-care (01) ==
PROVIDERS: PCP Nurse Practitioner Family; Visit Provider Nurse Practitioner Family
DX: E11.42 Type 2 diabetes mellitus with diabetic polyneuropathy (principal); J44.1 Chronic obstructive pulmonary disease with (acute) exacerbation; F14.10 Cocaine abuse, uncomplicated; R94.31 Abnormal electrocardiogram [ECG] [EKG]; R49.0 Dysphonia

== ENCOUNTER → 2024-04-23 15:53 | Outpatient (BNVA) | payer OTHER, SELFPAY | PROVIDERS: PCP Nurse Practitioner Family; Visit Provider Nurse Practitioner Family | DX: J44.1 Chronic obstructive pulmonary disease with (acute) exacerbation (principal); E11.42 Type 2 diabetes mellitus with diabetic polyneuropathy; F14.10 Cocaine abuse, uncomplicated; R94.31 Abnormal electrocardiogram [ECG] [EKG]; R49.0 Dysphonia | CPT/HCPCS: 96127; 99212 ==

== ENCOUNTER 2024-05-05 19:17 | Inpatient (IN) | payer OTHER, SELFPAY ==
--- NOTE | ~2024-05-05 | XR_ITS ---
EXAMINATION: XR CHEST CLINICAL INFORMATION: Dyspnea/COPD COMPARISON: 02/13/2024 TECHNIQUE: Frontal view of the chest was obtained. FINDINGS: No significant abnormality is noted involving the heart, lungs, mediastinum, bony thorax or soft tissues. XR/XR chest 1V IMPRESSION: Unremarkable examination. Electronically signed by: Keila Galeano MD 05/05/2024 09:09 PM [facility]
--- NOTE | 2024-05-05 19:18 | ECG_ITS ---
Test Reason : SOB Blood Pressure : / mmHG Vent. Rate : 109 BPM Atrial Rate : 109 BPM P-R Int : 100 ms QRS Dur : 082 ms QT Int : 348 ms P-R-T Axes : 059 216 068 degrees QTc Int : 468 ms Sinus tachycardia with short RI with occasional Premature ventricular complexes Right superior axis deviation Abnormal ECG When compared with ECG of 17-APR-2024 03:12, Premature ventricular complexes are now Present Aberrant conduction is no longer Present Referred By: Generic ED Physician Electronically Signed By:PAUL VARGAS MD
[2024-05-05 19:22] VITALS: BP 151/88; PULSE 88; O2SAT 99
[2024-05-05 19:35] VITALS: BP 119/58; PULSE 99; RESP 28; TEMP 36.6; O2SAT 100
[2024-05-05 19:38] VITALS: BP 119/58; PULSE 109; RESP 20; TEMP 36.9; O2SAT 96; BMI 34.5
[2024-05-05 20:06] LABS: MANUAL DIFF FLAG NO
[2024-05-05 20:07] LABS: Basophils Percent Auto 0.3 % (0-2); Eosinophils Absolute Auto 0.2 X10*3/uL (0.0-0.4); Eosinophils Percent Auto 1.8 % (0-4); Hematocrit 43.9 % (37.0-47.0); Hemoglobin 13.4 g/dl (12.0-16.0); Imm Gran Abs Auto 0.04 X10*3/uL (0.00-0.03); Imm Gran Pct Auto 0.3 % (0.0-0.4); Lymphocytes Absolute Auto 4.2 X10*3/uL (1.2-4.9); Lymphocytes Percent Auto 34.2 % (20-40); Mean Corpuscular HGB Conc 30.5 g/dl (31.0-35.0); Mean Corpuscular Hemoglobin 23.3 pg (27.0-33.0); Mean Corpuscular Volume 76.2 fL (80.0-98.0); Mean Platelet Volume 8.9 fL (9.4-12.3); Monocytes Percent Auto 7.9 % (2-11); Neutrophils Absolute Auto 6.8 x10*3/uL (2.0-8.3); Neutrophils Percent Auto 55.5 % (45-73); Platelet Count 439 X10*3/uL (160-400); Red Blood Count 5.76 X10*6/uL (4.20-5.50); Red Cell Distribution Width 19.1 % (11.0-16.0); White Blood Count 12.3 X10*3/uL (4.8-10.8)
[2024-05-05 20:29] LABS: Alanine Aminotransferase 14 U/L (0-31); Alkaline Phosphatase 89 U/L (39-117); Anion Gap 13 (12-20); Aspartate Amino Transferase 15 U/L (5-31); Bilirubin Total 0.2 mg/dL (0.0-1.0); Blood Urea Nitrogen 20 mg/dL (9-16); Calcium 10.3 mg/dL (8.4-10.2); Carbon Dioxide 28 mmol/L (22-29); Chloride 102 mmol/L (96-108); Creatinine Clr Calc Pharmacy 78.4; Estimated Glomerular Filt Rate > 60; Glucose Random 75 mg/dL (60-115); Lipase 19 U/L (8-78); Magnesium 1.7 mg/dL (1.6-2.6); Potassium 3.7 mmol/L (3.3-5.1); Sodium 139 mmol/L (135-145); Total Protein 7.1 g/dL (6.5-8.0)
[2024-05-05 20:32] LABS: B Type Natriuretic Peptide 39 pg/mL (<100)
[2024-05-05 20:36] LABS: Troponin-I High Sensitivity 25.8 ng/L (<3.5-17.0)
[2024-05-05 22:09] VITALS: BP 154/73; PULSE 96; RESP 22; TEMP 36.7; O2SAT 96
--- NOTE | 2024-05-05 23:47 | ED_ITS ---
HPI - SOB/Dyspnea General Chief Complaint: Dyspnea Stated Complaint: diff breathing Time Seen by Provider: 05/05/24 23:02 History of Present Illness HPI Narrative: This is a 53-year-old female with pertinent history of chronic hypoxemic respiratory failure due to COPD-asthma overlap syndrome, HENRY/OHS on nocturnal BiPAP, aif-wbdljhw-dtwlksqkd diabetes mellitus, hypertension, gastroesophageal reflux disease, active tobacco use disorder, history of cocaine use, obesity who presents to the emergency department for evaluation of dyspnea. Patient states her symptoms started 2 days prior to presentation. Recently discharged from the hospital now noticing increasing shortness of breath again. Positive generalized malaise weakness. Baseline patient is on 3 L of oxygen at home MD elicited complaint: shortness of breath Related Data Home Medications ?Medication ?Instructions ?Recorded ?Confirmed dexlansoprazole 60 mg 60 mg PO DAILY@0630 12/16/23 04/23/24 capsule,biphase delayed release (Dexilant) nicotine 21 mg/24 hr daily 1 patch transdermal DAILY PRN 04/05/24 04/23/24 transdermal patch Nicotine Cravings Previous Rx's ?Medication ?Instructions ?Recorded lancets 28 gauge (FreeStyle #100 ea 01/20/21 Lancets) 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 meter (FreeStyle #1 ea 03/01/22 Lite Meter kit) blood sugar diagnostic (FreeStyle #100 ea 09/16/22 Lite Strips) calcium carbonate 500 mg-vitamin 1 tab PO BID 30 days #60 tabs 12/09/23 D3 10 mcg (400 unit) tablet furosemide 20 mg tablet 20 mg PO DAILY #90 tabs 12/09/23 acetaminophen 650 mg 650 mg PO Q12H PRN pain 30 days 01/01/24 tablet,extended release #60 tabs aspirin 81 mg tablet,delayed 81 mg PO DAILY 90 days #90 tabs 01/01/24 release theophylline 400 mg 400 mg PO BID 90 days #180 tabs 01/27/24 tablet,extended release 24 hr losartan 25 mg tablet 25 mg PO DAILY 90 days #90 tabs 02/14/24 glipizide 5 mg tablet 5 mg PO DAILY #90 tabs 04/08/24 ibuprofen 800 mg tablet 800 mg PO BID PRN pain #60 tabs 04/08/24 sertraline 100 mg tablet 100 mg PO DAILY #90 tabs 04/08/24 albuterol sulfate 90 mcg/actuation 2 puff inhalation Q6H PRN for 04/10/24 aerosol inhaler (Ventolin HFA) wheezing #1 ea prednisone 20 mg tablet 40 mg (2 x 20 mg) PO DAILY 5 days 04/18/24 #10 tabs atorvastatin 20 mg tablet 20 mg PO BEDTIME 90 days #90 tabs 04/23/24 ipratropium bromide 0.02 % 2.5 ml inhalation Q6H PRN Wheezing 04/28/24 solution for inhalation #150 mL tiotropium 2.5 mcg-olodaterol 2.5 2 puff inhalation DAILY #4 grams 04/28/24 mcg/actuation mist for inhalation (Stiolto Respimat) gabapentin 800 mg tablet 800 mg PO TID PRN Pain 30 days #90 05/04/24 tabs tizanidine 4 mg tablet 4 mg PO Q12H PRN muscle spasm 30 05/04/24 days #60 tabs Allergies Allergy/AdvReac Type Severity Reaction Status Date / Time doxycycline Allergy Severe Swelling Verified 05/05/24 19:39 varenicline [From CHANTIX] Allergy Severe ANAPHYLAXIS Verified 05/05/24 19:39 azithromycin Allergy Intermediate Rash Verified 05/05/24 19:39 barium sulfate Allergy Intermediate angioedema Verified 05/05/24 19:39 cetirizine Allergy Mild Rash Verified 05/05/24 19:39 famotidine Allergy Mild Rash Verified 05/05/24 19:39 linaclotide [Linzess] Allergy Mild Rash Verified 05/05/24 19:39 Review of Systems 2 Review of Systems: Positive shortness of breath positive mild coughing. History of smoking. [facility] Past Medical History Attestation statement: The following information was validated with the patient. Medical History Hypoxic respiratory failure Nocturnal hypoxemia HENRY (obstructive sleep apnea) COPD (chronic obstructive pulmonary disease) Diabetes mellitus COPD exacerbation Crack cocaine use Hyperkalemia Metabolic acidosis Leukocytosis Chest discomfort Chronic renal failure, stage 2 (mild) SOB (shortness of breath) Asthma Smoker Rotator cuff tendonitis GERD (gastroesophageal reflux disease) Chronic idiopathic constipation Bustos's esophagus Depression High triglycerides Gastroparesis Carpal tunnel syndrome of right wrist Nausea & vomiting Hernia Acute and chronic respiratory failure, unspecified whether with hypoxia or hypercapnia HTN (hypertension) Obesity (BMI 30-39.9) Knee pain, bilateral Surgical History History of cholecystectomy (~1988) History of carpal tunnel release Hx of tubal ligation History of pubovaginal sling (~2015) History of umbilical hernia repair (~2001) Hx of section History of open reduction and internal fixation (ORIF) procedure History of esophagogastroduodenoscopy (EGD) Family History Family History Father Heart disease HENRY (obstructive sleep apnea) Family history of breast cancer Mother Asthma Emphysema, unspecified Bronchitis Smoker Alcoholism Bone marrow disease Maternal Grandmother Diabetes Social History Social History Household Members: Family Household Members Other:: daughter Housing: House Are you a primary urgent care physician to a significant other at home: No Do you presently have visiting nurse or other home services: No Unable to assess alcohol history related to: Unknown Alcohol intake: former Comment: Sleeping Patient Tobacco Use Status: Current everyday Tobacco user Tobacco use type: Cigarette Cigarette Packs Per Day: 0.5 Cigarettes Per Day: 10.0 Years Smoked: 48 Smoked in Last 30 Days: Yes e-Cigarette/Vaping Use: Never Used Second Hand Smoke Exposure: No Use of substances other than those prescribed or required for medical reasons: Yes Substance Use Type: Crack/Cocaine Substance Use Frequency: Monthly Advance Directives: Yes Advance Directives on File: Yes Advance Directives Date on File: 12/19/23 Do you have a plan to hurt others: No Plan service: No Current occupational status: disabled 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 Oriented X3. No acute distress. Eyes: Pupils equal, round and reactive to light. ENT: Pharynx normal. Neck: Normal inspection. Neck supple. No lymph nodes noted. No crepitus CVS: Normal heart rate and rhythm. Pulses normal. Normal S1 and S2 Respiratory: No respiratory distress. Breath sounds normal. No Wheezing. No rales Abdomen: Soft and nontender. No rigidity. No distention. good BS x4 Skin: Skin warm and dry. Normal skin color. Normal skin turgor. Extremities: No lower extremity edema. Neurovascular intact to all extremities. No Lacerations. No Rash Neuro: Oriented X 3. No motor deficit. No sensory deficit. Moving all extermities. No slurred speech Medications Administered Discontinued Medications Generic Name Dose Route Start Last Admin Trade Name Freq PRN Reason Stop Dose Admin Cefepime HCl 1 gm/ Sodium 50 mls @ 100 mls/hr 05/05/24 23:52 05/06/24 00:10 Chloride IV 05/06/24 00:21 100 mls/hr ONCE ONE Administration Methylprednisolone Sodium Succinate 125 mg 05/05/24 23:51 05/06/24 00:10 Methylprednisolone Sod Succ 125 Mg/2 Ml Vial IVPUSH 05/05/24 23:52 125 mg ONCE ONE Administration Medical Decision Making Medical Decision Making [facility] Narrative: History of COPD asthma long history of smoking and recreational drug use baseline on 3 L of oxygen at home. Now having increasing shortness of breath after recently being discharged from the hospital and finishing her course of steroids and antibiotics. Patient had diminished breath sounds bilaterally will place patient on steroids again. Culture obtained. Antibiotics to be started. Bronchial dilator protocol started. Patient will require admission. Differential Diagnosis Differential Diagnoses: The differential diagnosis associated with the presentation includes COPD, asthma, pneumonia Admission/Observation Consideration of admission/observation: Escalation of care including admission/observation considered Consult Healthcare Provider Management of the patient was discussed with: Hospitalist Lab Data [facility] Lab Attestation statement: I reviewed the patient's lab results. 05/05/24 20:01 05/05/24 20:01 Labs: Lab Results 05/05/24 05/05/24 05/06/24 Range/Units 20:01 23:40 00:46 WBC 12.3 H (4.8-10.8) X10*3/uL RBC 5.76 H (4.20-5.50) X10*6/uL Hgb 13.4 (12.0-16.0) g/dl Hct 43.9 (37.0-47.0) % MCV 76.2 L (80.0-98.0) fL MCH 23.3 L (27.0-33.0) pg MCHC 30.5 L (31.0-35.0) g/dl RDW 19.1 H (11.0-16.0) % Plt Count 439 H (160-400) X10*3/uL MPV 8.9 L (9.4-12.3) fL Immature Gran % (Auto) 0.3 (0.0-0.4) % Neut % (Auto) 55.5 (45-73) % Lymph % (Auto) 34.2 (20-40) % [place] % (Auto) 7.9 (2-11) % Eos % (Auto) 1.8 (0-4) % Baso % (Auto) 0.3 (0-2) % Lymph # (Auto) 4.2 (1.2-4.9) X10*3/uL [place] # (Auto) 1.0 (0.1-1.2) X10*3/uL Eos # (Auto) 0.2 (0.0-0.4) X10*3/uL Baso # (Auto) 0.0 (0.0-0.2) X10*3/uL Abs Immat Gran (auto) 0.04 H (0.00-0.03) X10*3/uL Absolute Neuts (auto) 6.8 (2.0-8.3) x10*3/uL Absolute Nucleated RBC 0.000 (0.0-0.012) X10*3/uL Nucleated RBC % (auto) 0.0 (0.0-0.2) /100WBC O2 Saturation 96.0 % ABG pH at Pt Temp 7.43 (7.35-7.45) ABG pCO2 at Pt Temp 47 H (32-45) mmHg ABG pO2 at Pt Temp 81 L (83-108) mmHg ABG HCO3 32 H (22-26) mmol/L ABG Base Excess (Actual) 6.6 mmol/L Carboxyhemoglobin % Cancelled Sodium 139 (135-145) mmol/L Potassium 3.7 D (3.3-5.1) mmol/L Chloride 102 (96-108) mmol/L Carbon Dioxide 28 (22-29) mmol/L Anion Gap 13 (12-20) BUN 20 H (9-16) mg/dL Creatinine 0.72 (0.5-1.4) mg/dL Estim Creat Clear Calc 78.4 Estimated GFR > 60 Random Glucose 75 (60-115) mg/dL Calcium 10.3 H (8.4-10.2) mg/dL POC WB Ioniz Calcium Cancelled Magnesium 1.7 (1.6-2.6) mg/dL Total Bilirubin 0.2 (0.0-1.0) mg/dL AST 15 (5-31) U/L ALT 14 (0-31) U/L Alkaline Phosphatase 89 (39-117) U/L Troponin I High Sens 25.8 H 25.3 H (<3.5-17.0) ng/L B-Natriuretic Peptide 39 (<100) pg/mL Total Protein 7.1 (6.5-8.0) g/dL Albumin 4.0 (3.5-5.0) g/dL Lipase 19 (8-78) U/L ABG Data ABG Results: My interpretation of patient's ABG showed no CO2 retention. Normal pH. Hypoxia based on patient being on oxygen at that time Attestation ABG: I personally reviewed and interpreted this ABG as follows: Interpretation: Please see above Independent Interpretation I performed an independent interpretation of an: EKG (My interpretation of patient's EKG showed a sinus rhythm heart rate is [address] segment elevation) and Plain X-Ray (My interpretation of patient's chest x-ray is grossly negative for pneumonia pneumothorax) Radiology Impression Discussion of test interpretation with radiology: I have reviewed the radiologist's reading. External Record Review External record reviewed: Inpatient record Chronic Conditions COPD asthma Social Determinants Patient?s care significantly limited by Social Determinants of Health including: Alcoholism and drug addiction in family and Problems related to primary support group Critical Care Time Critical Care Time Critical Care Time: Yes Total Critical Care Time: 40 Attestation: I have personally provided 40 minutes of critical care time exclusive of time spent on separately billable procedures. ?Time includes review of lab data, radiology results, discussion with consultants, and monitoring for potential decompensation. ?Interventions were performed as documented above Discharge Plan Discharge Clinical Impression: Acute hypoxemic respiratory failure Patient Disposition: Admitted As Inpatient Print Language: Austrian
[2024-05-06] VITALS (17 sets, daily range): BP systolic 102–129; BP diastolic 56–77; PULSE 61–113; RESP 18–20; TEMP 36.1–36.7; O2SAT 83–99; BMI 34.7
--- NOTE | 2024-05-06 | PC.NURSE ---
This database report writer assumed care of this Pt at 2300. Pt A&Ox3, denies any pain. Pt SpO2 94%, receiving breathing tx.
[2024-05-06 00:08] LABS: Troponin-I High Sensitivity 25.3 ng/L (<3.5-17.0)
[2024-05-06] MEDS: cefEPime HCl 1 GM in 0.9 % Sodium Chloride 50 ML IV (00:10)
[2024-05-06] MEDS: methylPREDNISolone Sod Succ 125 MG/2 ML VIAL IVPUSH (00:10)
[2024-05-06 00:52] LABS: ABG Base Excess 6.6 mmol/L; ABG HCO3 32 mmol/L (22-26); ABG pCO2 47 mmHg (32-45); ABG pH 7.43 (7.35-7.45); ABG pO2 81 mmHg (83-108)
[2024-05-06 00:53] LABS: ABG Refer to POC result
[2024-05-06] MEDS: Albuterol Sulfate 7.5 MG, Albuterol Sulfate (0.083%) 2.5 MG 10 MG INHALE (01:11)
[2024-05-06 01:19] LABS: Lactic Acid 0.8 mmol/L (0.5-2.0)
--- NOTE | 2024-05-06 03:15 | PC.NURSE ---
Addendum entered by Luh Carcamo 05/06/24 06:38: Pt ambulated to BR independently with steady gait. Original Note: Pt SpO2 83% on RA. Pt reports needing cpap at night but refusing to use at this time. States she wants to use it when she gets bed upstairs. SpO2 improved with oxymask.
--- NOTE | 2024-05-06 06:46 | P.HPHOSP_ITS ---
History of Present Illness Date of Service: 05/06/24 Chief Complaint: shortness of breath A 54-year-old female with a history of COPD (on home oxygen), active smoking, diabetes, obesity, GERD, Bustos's esophagus, osteoarthritis, constipation, carpal tunnel syndrome, and HENRY (noncompliant with CPAP), as well as a history of cocaine use, presented to the ED for evaluation of sudden-onset shortness of breath accompanied by wheezing. She recently completed a course of antibiotics for pneumonia and steroids for COPD. A chest X-ray was unremarkable. Review of Systems 2 Review of Systems: Gen: no fever Resp: + sob, + cough CV: no chest, no WANG, no leg edema GI: No n/v, no abd pain Neuro: No confusion Yes all other systems are reviewed and are negative [facility] Medical History Hypoxic respiratory failure Nocturnal hypoxemia HENRY (obstructive sleep apnea) COPD (chronic obstructive pulmonary disease) Diabetes mellitus COPD exacerbation Crack cocaine use Hyperkalemia Metabolic acidosis Leukocytosis Chest discomfort Chronic renal failure, stage 2 (mild) SOB (shortness of breath) Asthma Smoker Rotator cuff tendonitis GERD (gastroesophageal reflux disease) Chronic idiopathic constipation Bustos's esophagus Depression High triglycerides Gastroparesis Carpal tunnel syndrome of right wrist Nausea & vomiting Hernia Acute and chronic respiratory failure, unspecified whether with hypoxia or hypercapnia HTN (hypertension) Obesity (BMI 30-39.9) Knee pain, bilateral Family History Father Heart disease HENRY (obstructive sleep apnea) Family history of breast cancer Mother Asthma Emphysema, unspecified Bronchitis Smoker Alcoholism Bone marrow disease Maternal Grandmother Diabetes Surgical History History of cholecystectomy (~1988) History of carpal tunnel release Hx of tubal ligation History of pubovaginal sling (~2015) History of umbilical hernia repair (~2001) Hx of section History of open reduction and internal fixation (ORIF) procedure History of esophagogastroduodenoscopy (EGD) Social History Household Members: Other Household Members Other:: sister Housing: House Are you a primary customer care manager to a significant other at home: No Do you presently have visiting nurse or other home services: No Unable to assess alcohol history related to: Unknown Alcohol intake: former Comment: Sleeping Patient Tobacco Use Status: Current everyday Tobacco user Tobacco use type: Cigarette Cigarette Packs Per Day: 1 Cigarettes Per Day: 20.0 Years Smoked: 48 Smoked in Last 30 Days: Yes e-Cigarette/Vaping Use: Never Used Second Hand Smoke Exposure: No Use of substances other than those prescribed or required for medical reasons: No Substance Use Type: Crack/Cocaine Substance Use Frequency: Monthly Currently Displaying Signs/Symptoms of Drug Intoxication Withdrawal: No Advance Directives: Yes Advance Directives on File: Yes Advance Directives Date on File: 12/19/23 Do you have a plan to hurt others: No Plan Recently lost weight without trying: Yes How much weight loss: 14-23 pounds Eating poorly because of decreased appetite: No Nutrition screen score: 4 Patient : No : No service: No Current occupational status: disabled 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 Meds Allergies Allergy/AdvReac Type Severity Reaction Status Date / Time doxycycline Allergy Severe Swelling Verified 05/05/24 19:39 varenicline [From CHANTIX] Allergy Severe ANAPHYLAXIS Verified 05/05/24 19:39 azithromycin Allergy Intermediate Rash Verified 05/05/24 19:39 barium sulfate Allergy Intermediate angioedema Verified 05/05/24 19:39 cetirizine Allergy Mild Rash Verified 05/05/24 19:39 famotidine Allergy Mild Rash Verified 05/05/24 19:39 linaclotide [Linzess] Allergy Mild Rash Verified 05/05/24 19:39 Home Medications ?Medication ?Instructions ?Recorded ?Confirmed ?Last Taken ?Type dexlansoprazole 60 mg 60 mg PO DAILY@0630 12/16/23 05/06/24 05/04/24 History capsule,biphase delayed release (Dexilant) nicotine 21 mg/24 hr daily 1 patch transdermal DAILY PRN 04/05/24 05/06/24 05/04/24 History transdermal patch Nicotine Cravings Physical Exam 2 Vital Signs and Narrative: Vital Signs: Last Vital Signs Temp 98.1 F 05/06/24 06:12 Pulse 113 H 05/06/24 06:12 Resp 18 05/06/24 06:12 BP 102/56 L 05/06/24 06:12 Pulse Ox 91 L 05/06/24 06:12 O2 Del Method Room Air 05/06/24 06:12 O2 Flow Rate 3 05/05/24 22:09 Oxygen Flow Rate 3 05/05/24 19:38 BMI result Body Mass Index 34.5 General: AO X 3, no acute distress Resp: CTA bilateral CVS: S1,S2,RRR GI: +BS, NT, no distention Skin: No rash Neuro: motor grossly intact Psych: appropriate affect Results Labs 05/05/24 20:01 05/05/24 20:01 Labs: Laboratory Results - last 24 hr 05/05/24 05/05/24 05/06/24 20:01 23:40 00:46 MCV 76.2 L MCH 23.3 L MCHC 30.5 L RDW 19.1 H Plt Count 439 H MPV 8.9 L Immature Gran % (Auto) 0.3 Neut % (Auto) 55.5 Lymph % (Auto) 34.2 [place] % (Auto) 7.9 Eos % (Auto) 1.8 Baso % (Auto) 0.3 Lymph # (Auto) 4.2 [place] # (Auto) 1.0 Eos # (Auto) 0.2 Baso # (Auto) 0.0 Abs Immat Gran (auto) 0.04 H Absolute Neuts (auto) 6.8 Absolute Nucleated RBC 0.000 Nucleated RBC % (auto) 0.0 O2 Saturation 96.0 ABG pH at Pt Temp 7.43 ABG pCO2 at Pt Temp 47 H ABG pO2 at Pt Temp 81 L ABG HCO3 32 H ABG Base Excess (Actual) 6.6 Carboxyhemoglobin % Cancelled Anion Gap 13 Estim Creat Clear Calc 78.4 Estimated GFR > 60 Random Glucose 75 Lactic Acid Calcium 10.3 H POC WB Ioniz Calcium Cancelled Magnesium 1.7 Total Bilirubin 0.2 AST 15 ALT 14 Alkaline Phosphatase 89 Troponin I High Sens 25.8 H 25.3 H B-Natriuretic Peptide 39 Total Protein 7.1 Albumin 4.0 Lipase 19 05/06/24 00:58 MCV MCH MCHC RDW Plt Count MPV Immature Gran % (Auto) Neut % (Auto) Lymph % (Auto) [place] % (Auto) Eos % (Auto) Baso % (Auto) Lymph # (Auto) [place] # (Auto) Eos # (Auto) Baso # (Auto) Abs Immat Gran (auto) Absolute Neuts (auto) Absolute Nucleated RBC Nucleated RBC % (auto) O2 Saturation ABG pH at Pt Temp ABG pCO2 at Pt Temp ABG pO2 at Pt Temp ABG HCO3 ABG Base Excess (Actual) Carboxyhemoglobin % Anion Gap Estim Creat Clear Calc Estimated GFR Random Glucose Lactic Acid 0.8 Calcium POC WB Ioniz Calcium Magnesium Total Bilirubin AST ALT Alkaline Phosphatase Troponin I High Sens B-Natriuretic Peptide Total Protein Albumin Lipase Imaging Radiologist's Impressions: Impressions Chest X-Ray 05/05/24 20:30 IMPRESSION: Unremarkable examination. Electronically signed by: Keila Galeano MD 05/05/2024 09:09 PM [facility] Assessment and Plan (1) Hypoxic respiratory failure: Status: Acute (2) Chronic lung disease: Status: Acute (3) COPD exacerbation: Status: Acute Plan 54 year old female with history of COPD, active smoker, history of diabetes, obesity, GERD, Bustos's esophagus, osteoarthritis, constipation, carpal tunnel syndrome, HENRY, noncompliant with CPAP, here with sob and exacerbation of copd #Acute copd exacerbation acute hypoxemic respiratory failure likely complicated by HENRY -abg reassuring. CO2 baseline around 45-50 -CXR negative for PNA -received 125mg IV methylprednisolone in the ER. No furhter wheezing on exam. resume steroid tomorrow -duonebs q4h and prn -no change in quality or severity of chronic cough. No antibiotics indicated -continue maintenance inhalers, theophylline -CPAP p.r.n.. Encourage nightly use # lcy-eoetubd-geuzfhpuz type 2 diabetes -POC glucose, diabetic diet -Humalog on sliding scale -p.o. antihyperglycemics # GERD/Bustos's esophagus -continue famotidine # hypertension -continue losartan, Lasix #constipation -continue lubiprostone # crack cocaine abuse -check utox dvt prophylaxis- lovenox full code Quality Stroke Does the patient have a stroke diagnosis?: No VTE Prior VTE?: No VTE Risk Level:: Medical - moderate - high VTE Device Contraindication: N/A - Device Ordered VTE Drug Contraindication: N/A - Med Ordered
--- NOTE | 2024-05-06 08:34 | PHA.MEDREC ---
Addendum entered by Chasity Erickson RPh 05/06/24 08:55: Reviewed by [facility] Original Note: Pharmacy Consult ? Medication Reconciliation Pharmacy has completed the medication reconciliation. Confirmed medications with patient who was very sleepy but seemed to know her medications. She confirmed her discharge packet was up to date and then started naming off her medications and we confirmed all of them on the list, patient passed out 4-5 times in the process but when she arose she was able to tell me how she takes her medications. Atorvastatin 20mg tabs were not on the discharge packet from 04/18 and patent confirmed she takes that before bed, in claims that was filled 04/23 for 90 days. She was able to confirm she takes the Dexilant 60mg tab every morning for 629. She confirmed she still has Nicotine Patches at home as needed for nicotine cravings. She confirmed she finished her Prednisone 20mg regimen and was not sure when but stated it was more then a week ago. She stated she has not taken her medications in 2 days.
[2024-05-06] MEDS: Nicotine 14 MG PATCH.TD24 TRANSDERMA (09:58)
[2024-05-06] MEDS: Enoxaparin Sodium 40 MG/0.4 ML SYRINGE SUBCUT (09:59)
[2024-05-06] MEDS: 0.9 % Sodium Chloride Flush 3 ML SYRINGE IVFLUSH ×3 (10:04→20:34)
[2024-05-06] MEDS: Albuterol Sulfate (0.083%) 2.5 MG/3 ML VIAL.NEB INHALE ×3 (11:15→18:58)
--- NOTE | 2024-05-06 11:35 | MHC.CM.PN ---
Attempted to meet with patient in regards to discharge planning. Nursing care currently being provided. Will attempt to meet again. Continue to monitor for d/c needs.
--- NOTE | 2024-05-06 11:41 | PC.NURSE ---
pharmacy contacted re: theophylline- will send to dept
[2024-05-06] MEDS: Furosemide 20 MG TABLET PO (11:51)
[2024-05-06] MEDS: Aspirin Enteric Coated 81 MG TABLET.DR PO (11:53)
[2024-05-06] MEDS: Losartan Potassium 25 MG TABLET PO (11:54)
[2024-05-06] MEDS: Sertraline HCL 100 MG TABLET PO (11:54)
[2024-05-06] MEDS: glipiZIDE 5 MG TABLET PO (11:54)
[2024-05-06] MEDS: Theophylline Anhydrous ER 400 MG TAB.ER.24H PO ×2 (12:03→20:31)
--- NOTE | 2024-05-06 12:56 | PC.NURSE ---
report given to Fabio Méndez RN pt to be moved to Overflow 5
[2024-05-06 13:14] LABS: Glucose, Whole Blood 346 mg/dL (60-115)
[2024-05-06] MEDS: Insulin Lispro 100 UNIT/ML 3 ML VIAL SUBCUT (13:15)
[2024-05-06 16:25] LABS: Glucose, Whole Blood 43 mg/dL (60-115)
[2024-05-06 16:43] LABS: Glucose, Whole Blood 38 mg/dL (60-115)
[2024-05-06 16:43] LABS: Glucose, Whole Blood 45 mg/dL (60-115)
[2024-05-06] MEDS: Dextrose 10 % 250 ML 750 ML IV (16:52)
--- NOTE | 2024-05-06 17:00 | PC.NURSE ---
Addendum entered by [place]ia Doan RN 05/06/24 17:25: BS recheck was 166 after D10 administration. MD Liriano made aware. Addendum entered by [place]ia Doan RN 05/06/24 17:24: BS recheck was 166 after D10 administartion @166MD made aware Original Note: pt BS 43 @1617, 2 juices given. BS rechecked @1637 for 38, BS immediately rechecked result 45, MD Liriano notified, D10 running per aug. pt alert and oriented x4, endorsing dizziness. MD Liriano at bedside to assess pt.
[2024-05-06 17:17] LABS: Glucose, Whole Blood 166 mg/dL (60-115)
[2024-05-06 20:06] LABS: Glucose, Whole Blood 64 mg/dL (60-115)
[2024-05-06] MEDS: Atorvastatin Calcium 20 MG TABLET PO (20:31)
[2024-05-06] MEDS: Calcium + Vitamin D 250 MG TABLET 500 MG PO (20:31)
[2024-05-07] VITALS (7 sets, daily range): BP systolic 135–156; BP diastolic 62–84; PULSE 88–110; RESP 17–21; TEMP 35.6–36.7; O2SAT 92–96
[2024-05-07] MEDS: Omeprazole 40 MG CAPSULE.DR PO (05:56)
[2024-05-07] MEDS: Albuterol Sulfate (0.083%) 2.5 MG/3 ML VIAL.NEB INHALE ×3 (07:29→18:55)
[2024-05-07] MEDS: Aspirin Enteric Coated 81 MG TABLET.DR PO (07:33)
[2024-05-07] MEDS: Losartan Potassium 25 MG TABLET PO (07:34)
[2024-05-07] MEDS: Furosemide 20 MG TABLET PO (07:34)
[2024-05-07] MEDS: Calcium + Vitamin D 250 MG TABLET 500 MG PO ×2 (07:34→20:56)
[2024-05-07] MEDS: Sertraline HCL 100 MG TABLET PO (07:34)
[2024-05-07] MEDS: Theophylline Anhydrous ER 400 MG TAB.ER.24H PO ×2 (07:34→20:56)
[2024-05-07] MEDS: Nicotine 14 MG PATCH.TD24 TRANSDERMA (07:35)
[2024-05-07] MEDS: glipiZIDE 5 MG TABLET PO (07:35)
[2024-05-07] MEDS: Enoxaparin Sodium 40 MG/0.4 ML SYRINGE SUBCUT (07:36)
[2024-05-07 07:37] LABS: Glucose, Whole Blood 130 mg/dL (60-115)
[2024-05-07] MEDS: 0.9 % Sodium Chloride Flush 3 ML SYRINGE IVFLUSH ×3 (07:37→20:32)
--- NOTE | 2024-05-07 09:19 | P.PNIM_ITS ---
Subjective Subjective Date of Service: 05/07/24 Interval History: f/u on copd exacerbation still sob, Physical Exam 2 Vital Signs: Vital Signs: Last Vital Signs Temp 97.8 F 05/07/24 07:15 Pulse 97 05/07/24 07:29 Resp 18 05/07/24 07:29 BP 152/83 H 05/07/24 07:15 Pulse Ox 94 05/07/24 07:15 O2 Del Method Oxymask 05/07/24 07:15 O2 Flow Rate 4.0 05/07/24 07:15 Oxygen Flow Rate 3 05/05/24 19:38 BMI result Body Mass Index 34.7 Const: Other: General: AO X 3, no acute distress Resp: tight air movement CVS: S1,S2,RRR GI: +BS, NT, no distention Skin: No rash Neuro: motor grossly intact Psych: appropriate affect Objective Data Active Medications Acetaminophen (Acetaminophen 325 Mg Tablet) 650 mg PO Q6H PRN PRN Reason: Pain, Mild (Pain Scale 1-3), fever or headache Acetaminophen (Acetaminophen 325 Mg Tablet) 650 mg PO Q12H PRN PRN Reason: pain Albuterol Sulfate (Albuterol Sulfate (0.083%) 2.5 Mg/3 Ml Vial.Neb) 2.5 mg INHALE RQ4H WHILE AWAKE [facility] Last Admin: 05/07/24 07:29 Dose: 2.5 mg Documented By: SAMMIE Albuterol Sulfate (Albuterol Sulfate (0.083%) 2.5 Mg/3 Ml Vial.Neb) 2.5 mg INHALE Q2H PRN PRN Reason: Shortness of Breath/Wheezing Aspirin (Aspirin Enteric Coated 81 Mg Tablet.) 81 mg PO DAILY [facility] Last Admin: 05/07/24 07:33 Dose: 81 mg Documented By: RAMA Atorvastatin Calcium (Atorvastatin Calcium 20 Mg Tablet) 20 mg PO BEDTIME [facility] Last Admin: 05/06/24 20:31 Dose: 20 mg Documented By: VINCE Calcium Carbonate (Calcium Carbonate 750 Mg Tab.Chew) 750 mg PO Q4H PRN PRN Reason: Heartburn Calcium Carbonate/Cholecalciferol (Calcium + Vitamin D 250 Mg Tablet) 500 mg PO BID [facility] Last Admin: 05/07/24 07:34 Dose: 500 mg Documented By: RAMA Enoxaparin Sodium (Enoxaparin Sodium 40 Mg/0.4 Ml Syringe) 40 mg SUBCUT Q24H [facility] Last Admin: 05/07/24 07:36 Dose: 40 mg Documented By: RAMA Furosemide (Furosemide 20 Mg Tablet) 20 mg PO DAILY [facility]; Protocol Last Admin: 05/07/24 07:34 Dose: 20 mg Documented By: RAMA Glipizide (Glipizide 5 Mg Tablet) 5 mg PO DAILY [facility] Last Admin: 05/07/24 07:35 Dose: 5 mg Documented By: RAMA Glucose (Glucose Gel 15 Gm Gel..Gram.) 15 gm PO Q15M PRN; Protocol PRN Reason: per Hypoglycemia Standing Ord. Dextrose (D10) 250 mls @ 750 mls/hr IV Q15M PRN; Protocol PRN Reason: per Hypoglycemia Standing Ord. Last Infusion: 05/06/24 17:26 Dose: Infused Documented By: RAMA Insulin Human Lispro (Insulin Lispro 100 Unit/Ml 3 Ml Vial) 0 unit SUBCUT QIDACHS [facility]; Protocol Last Admin: 05/07/24 07:37 Dose: Not Given Documented By: RAMA Non-Admin Reason: No Insulin Coverage Losartan Potassium (Losartan Potassium 25 Mg Tablet) 25 mg PO DAILY [facility]; Protocol Last Admin: 05/07/24 07:34 Dose: 25 mg Documented By: RAMA Magnesium Hydroxide (Milk Of Magnesia 30 Ml Oral.Susp) 30 ml PO DAILY PRN PRN Reason: Constipation Melatonin (Melatonin 3 Mg Tablet) 6 mg PO BEDTIME PRN PRN Reason: Insomnia Methylprednisolone Sodium Succinate (Methylprednisolone Sod Succ 40 Mg/Ml Vial) 40 mg IVPUSH Q12H [facility] Nicotine (Nicotine 14 Mg Patch.Td24) 14 mg TRANSDERMA DAILY [facility] Last Admin: 05/07/24 07:35 Dose: 14 mg Documented By: RAMA Non-Formulary Medication (Tiotropium-Olodaterol [Stiolto Respimat]) 2 puff INHALE DAILY [facility] Omeprazole (Omeprazole 40 Mg Capsule.) 40 mg PO DAILY@0630 [facility] Last Admin: 05/07/24 05:56 Dose: 40 mg Documented By: VINCE Ondansetron HCl (Ondansetron Hcl 4 Mg/2 Ml Vial) 4 mg IVPUSH Q8H PRN PRN Reason: Nausea and Vomiting Sertraline HCl (Sertraline Hcl 100 Mg Tablet) 100 mg PO DAILY [facility] Last Admin: 05/07/24 07:34 Dose: 100 mg Documented By: RAMA Sodium Chloride (0.9 % Sodium Chloride Flush 3 Ml Syringe) 3 ml IVFLUSH QSHIFT [facility] Last Admin: 05/07/24 07:37 Dose: 3 ml Documented By: RAMA Theophylline (Theophylline Anhydrous Er 400 Mg Tab.Er.24h) 400 mg PO BID [facility] Last Admin: 05/07/24 07:34 Dose: 400 mg Documented By: RAMA Tizanidine HCl (Tizanidine Hcl 4 Mg Tablet) 4 mg PO Q12H PRN PRN Reason: muscle spasm Labs 05/05/24 20:01 05/05/24 20:01 Labs: Laboratory Results - last 24 hr 05/06/24 05/06/24 05/06/24 13:10 16:17 16:37 POC Glucose 346 H 43 L* 38 L* 05/06/24 05/06/24 05/06/24 16:39 17:12 19:54 POC Glucose 45 L* 166 H 64 05/07/24 07:20 POC Glucose 130 H Microbiology Microbiology Results: Microbiology 05/06/24 00:58 Blood Culture - Preliminary Blood - Venous No growth after 24 hours. 05/06/24 00:58 Blood Culture - Preliminary Blood - Venous No growth after 24 hours. Assessment and Plan (1) Asthma exacerbation: Status: Resolved (2) Pneumonia: Status: Acute Assessment and Plan: 53y/o F with pmx diabetes mellitus, COPD with asthma overlap syndrome not on home oxygen, GERD, cocaine use disorder, obstructive sleep apnea on BiPAP, gastroparesis came to Ed for shortness of breath x2 days, nonproductive cough. Acute hypoxic respiratory failure due to acute exacerbation of COPD-asthma overlap syndrome,pneumonia -continue bronchodilators -iv steroid -smoking cessation discussed again Tobacco use disorder: Counseled regarding cessation. NRT . HENRY: Continue CPAP at bedtime. [id number] diabetes with hypoglycemia -hold glipizide d/t hypoglycemia, -ssi Gastroesophageal reflux disease: On PPI. Morbid obesity: Encouraged to lose weight via exercise and caloric restriction dvt prophylax: s/c lovenox. Quality Stroke Does the patient have a stroke diagnosis?: No VTE Prior VTE?: No VTE Risk Level:: Medical - moderate - high VTE Device Contraindication: N/A - Device Ordered VTE Drug Contraindication: N/A - Med Ordered
[2024-05-07] MEDS: methylPREDNISolone Sod Succ 40 MG/ML VIAL IVPUSH ×2 (10:16→20:30)
[2024-05-07 10:53] LABS: Amphetamine Screen Urine Not Detected (Not Detect); Barbiturates, Urine Not Detected (Not Detect); Benzodiazepines Screen Urine Not Detected (Not Detect); Buprenorphine Scr Not Detected (Not Detect); Cannabinoid Screen Urine Not Detected (Not Detect); Cocaine Screen Urine POSITIVE (Not Detect); Fentanyl, urine Not Detected (Not Detect); Methadone Screen, Urine Not Detected (Not Detect); Opiate Screen Urine Not Detected (Not Detect); Oxycodone Screen Urine Not Detected (Not Detect); Phencyclidine Screen Urine Not Detected (Not Detect)
[2024-05-07 11:33] LABS: Glucose, Whole Blood 101 mg/dL (60-115)
--- NOTE | 2024-05-07 14:43 | MHC.CM.PN ---
IMM 05/07/24 54yrs DX COPD Exacerbation She lives with her sister. She has [facility] services in place. Patient uses CPAP and 3L O2 @ home. [facility] is the provider. If VNA ordered, [facility] is 1st choice. She has received services from [facility] in the past. STR was discussed. The patient is not interested in going to a STR. DP Home with resumption of [facility] [employer] services. Patient will need assist with transportation. She will transport via [facility] shuttle vs BLS.
[2024-05-07 16:21] LABS: Glucose, Whole Blood 257 mg/dL (60-115)
[2024-05-07] MEDS: Insulin Lispro 100 UNIT/ML 3 ML VIAL SUBCUT ×2 (17:04→20:56)
[2024-05-07 20:37] LABS: Glucose, Whole Blood 151 mg/dL (60-115)
[2024-05-07] MEDS: Atorvastatin Calcium 20 MG TABLET PO (20:56)
[2024-05-07] MEDS: Gabapentin 400 MG CAPSULE 800 MG PO (21:23)
[2024-05-08] MEDS: Albuterol Sulfate (0.083%) 2.5 MG/3 ML VIAL.NEB INHALE ×2 (03:11→08:12)
[2024-05-08 03:12] VITALS: PULSE 87; RESP 17; O2SAT 94
[2024-05-08 03:27] VITALS: BP 139/82; PULSE 82; RESP 20; TEMP 36.1; O2SAT 97
[2024-05-08] MEDS: Omeprazole 40 MG CAPSULE.DR PO (06:29)
[2024-05-08 07:17] VITALS: BP 150/68; PULSE 84; RESP 18; TEMP 36; O2SAT 95
[2024-05-08 07:43] LABS: Glucose, Whole Blood 162 mg/dL (60-115)
[2024-05-08] MEDS: Insulin Lispro 100 UNIT/ML 3 ML VIAL SUBCUT (08:11)
[2024-05-08 08:12] VITALS: PULSE 68; RESP 18; O2SAT 95
[2024-05-08] MEDS: Calcium + Vitamin D 250 MG TABLET 500 MG PO (08:12)
[2024-05-08] MEDS: Furosemide 20 MG TABLET PO (08:13)
[2024-05-08] MEDS: Aspirin Enteric Coated 81 MG TABLET.DR PO (08:13)
[2024-05-08] MEDS: Theophylline Anhydrous ER 400 MG TAB.ER.24H PO (08:13)
[2024-05-08] MEDS: Sertraline HCL 100 MG TABLET PO (08:13)
[2024-05-08] MEDS: Losartan Potassium 25 MG TABLET PO (08:14)
[2024-05-08] MEDS: Enoxaparin Sodium 40 MG/0.4 ML SYRINGE SUBCUT (08:14)
[2024-05-08] MEDS: Nicotine 14 MG PATCH.TD24 TRANSDERMA (08:15)
[2024-05-08] MEDS: methylPREDNISolone Sod Succ 40 MG/ML VIAL IVPUSH (08:15)
[2024-05-08] MEDS: 0.9 % Sodium Chloride Flush 3 ML SYRINGE IVFLUSH (08:21)
--- NOTE | 2024-05-08 09:12 | PM.DS ---
DS: Providers Provider Date of Service: 05/08/24 Date of admission: 05/06/24 07:23 Primary care physician: DOTTY Lazcano DS: Diagnosis Discharge Diagnosis (1) Asthma exacerbation: Status: Resolved (2) Pneumonia: Status: Acute DS: Summary Hospital Course Hospital Course: Chief Complaint: shortness of breath A 54-year-old female with a history of COPD (on home oxygen), active smoking, diabetes, obesity, GERD, Bustos's esophagus, osteoarthritis, constipation, carpal tunnel syndrome, and HENRY (noncompliant with CPAP), as well as a history of cocaine use, presented to the ED for evaluation of sudden-onset shortness of breath accompanied by wheezing. She recently completed a course of antibiotics for pneumonia and steroids for COPD. A chest X-ray was unremarkable. Hospital course: The patient presented with shortness of breath and was found to have chronic respiratory failure. She is supposed to be on supplemental oxygen but has not been using it consistently. She continues to smoke. On evaluation, she was hypoxic, though chest X-ray showed no acute pneumonic process. She was admitted for management of acute hypoxic respiratory failure secondary to COPD and treated with IV steroids and nebulized bronchodilators. During her hospitalization, she made a rapid recovery and is now feeling much better, with normal oxygen levels on room air. She will be discharged with a prednisone taper, instructed to continue using supplemental oxygen as prescribed, and to resume her prior inhalers. She was also strongly advised to quit smoking. She desires to go home today Time Attestation Discharge Coordination Time (in mins): 45 Quality: Safe Use of Opioids Does Pt have an Active Cancer Diagnosis on the Problem List?: No Quality: Stroke Does the patient have a stroke diagnosis?: No Physical Exam Vital Signs: Vital Signs: Last Vital Signs Temp 96.8 F 05/08/24 07:17 Pulse 68 05/08/24 08:12 Resp 18 05/08/24 08:12 BP 150/68 H 05/08/24 07:17 Pulse Ox 95 05/08/24 07:17 O2 Del Method Room Air 05/08/24 07:17 O2 Flow Rate 4.0 05/07/24 07:15 Oxygen Flow Rate 3 05/05/24 19:38 BMI result Body Mass Index 34.7 Const: Other: General: AO X 3, no acute distress Resp: CTA bilateral, no accessory muslce use CVS: S1,S2,RRR GI: +BS, NT, no distention Skin: No rash Neuro: motor grossly intact Psych: appropriate affect DS: Data Data Completed and Pending Completed studies during hospitalization [Text1]: Procedures Assistance with Respiratory Ventilation, Less than 24 Consecutive Hours, Continuous Positive Airway Pressure (04/17/24) Insertion of Endotracheal Airway into Trachea, Via Natural or Artificial Opening (11/03/20) Insertion of Infusion Device into Superior Vena Cava, Percutaneous Approach (11/03/20) Respiratory Ventilation, Less than 24 Consecutive Hours (11/03/20) Labs on day of discharge: Laboratory Results - last 24 hr 05/07/24 05/07/24 05/07/24 10:28 11:26 16:12 POC Glucose 101 257 H Urine Opiates Screen Not Detected Ur Buprenorphine Scrn Not Detected Ur Oxycodone Screen Not Detected Urine Methadone Screen Not Detected Urine Fentanyl Screen Not Detected Ur Barbiturates Screen Not Detected Ur Phencyclidine Scrn Not Detected Ur Amphetamines Screen Not Detected U Benzodiazepines Scrn Not Detected Urine Cocaine Screen POSITIVE H U Marijuana (THC) Screen Not Detected 05/07/24 05/08/24 20:29 07:20 POC Glucose 151 H 162 H Urine Opiates Screen Ur Buprenorphine Scrn Ur Oxycodone Screen Urine Methadone Screen Urine Fentanyl Screen Ur Barbiturates Screen Ur Phencyclidine Scrn Ur Amphetamines Screen U Benzodiazepines Scrn Urine Cocaine Screen U Marijuana (THC) Screen Preliminary micro results at discharge 05/06/24 00:58 Blood Culture - Preliminary Blood - Venous No growth after 24 hours. 05/06/24 00:58 Blood Culture - Preliminary Blood - Venous No growth after 24 hours. Discharge Plan Discharge Anticipated Discharge Date/Time: 05/08/24 09:08 Patient Disposition: Home, Self-Care Discharge Diagnosis: Acute hypoxic respiratory failure due to COPD exacerbation Referrals: Joe Hale, [employer] [Primary Care Provider] - 1 Week Discharge Medications: New prednisone 10 mg tablet See Taper PO DIRECTED Qty: 12 0RF Taper: Prednisone 30 mg daily for 2 Days and 0 Hour 20 mg daily for 2 Days and 0 Hour 10 mg daily for 2 Days and 0 Hour Rx Instructions: see taper instructions Continued (DME) lancets [FreeStyle Lancets] 28 gauge misc See Rx Instructions .ROUTE .MEDSUPPLY Qty: 100 1RF Rx Instructions: Use to check blood sugar daily or if symptomatic hypo/hypergylcemia (DME) 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 meter [FreeStyle Lite Meter] Kit See Rx Instructions .ROUTE .MEDSUPPLY Qty: 1 0RF Rx Instructions: Use to check blood sugar daily or if symptomatic for hypo/hyperglycemia (DME) FreeStyle Lite Strips Strip See Rx Instructions .ROUTE .MEDSUPPLY Qty: 100 1RF Rx Instructions: Use to check blood sugar daily or if symptomatic hypo/hypergylcemia calcium carbonate-vitamin D3 500 mg-10 mcg (400 unit) tablet 1 tab PO BID 30 Days Qty: 60 6RF furosemide 20 mg tablet 20 mg PO DAILY Qty: 90 3RF acetaminophen 650 mg tablet extended release 650 mg PO Q12H PRN (Reason: pain) 30 Days Qty: 60 0RF aspirin 81 mg tablet,delayed release (DR/EC) 81 mg PO DAILY 90 Days Qty: 90 1RF theophylline 400 mg tablet extended release 24 hr 400 mg PO BID 90 Days Qty: 180 4RF ibuprofen 800 mg tablet 800 mg PO BID PRN (Reason: pain) Qty: 60 0RF Rx Instructions: please use sparingly due to diabetes sertraline 100 mg tablet 100 mg PO DAILY Qty: 90 0RF glipizide 5 mg tablet 5 mg PO DAILY Qty: 90 0RF albuterol sulfate [Ventolin HFA] 90 mcg/actuation HFA aerosol inhaler 2 puff inhalation Q6H PRN (Reason: for wheezing) Qty: 1 6RF ipratropium bromide 0.02 % solution 2.5 ml inhalation Q6H PRN (Reason: Wheezing) Qty: 150 6RF Stiolto Respimat 2.5-2.5 mcg/actuation mist 2 puff INHALATION DAILY Qty: 4 6RF tizanidine 4 mg tablet 4 mg PO Q12H PRN (Reason: muscle spasm) 30 Days Qty: 60 0RF Rx Instructions: do not take concurrently with famotidine gabapentin 800 mg tablet 800 mg PO TID PRN (Reason: Pain) 30 Days Qty: 90 0RF nicotine 21 mg/24 hr Patch 24 Hour 1 patch TRANSDERMAL DAILY PRN (Reason: Nicotine Cravings) dexlansoprazole [Dexilant] 60 mg capsule,biphase delayed releas 60 mg PO DAILY@0630 losartan 25 mg tablet 25 mg PO DAILY 90 Days Qty: 90 0RF atorvastatin 20 mg tablet 20 mg PO BEDTIME 90 Days Qty: 90 0RF Discharge Orders: Discharge Order (Routine); Ordered 05/08/24 Ordered By: Oliverio Liriano Diet: Diabetic diet Activity on Discharge: As tolerated Stand Alone Forms: Patient Portal Discharge page Print Language: Hebrew Care Plan Goals: Recovery from COPD exacerbation and acute hypoxic respiratory failure Health Concerns: Chronic respiratory failure due to COPD Prominent tobacco use Plan of Treatment: Take prednisone as directed Use inhalers as directed Stop smoking Follow-up with your primary care doctor within a week, call for appointment Assessment: Bill
--- NOTE | 2024-05-08 09:28 | MHC.CM.PN ---
IMM 05/07/24 Patient with DX COPD exacerbation. SHe is discharged to home today self care. [facility] [employer] services, already in place will resume. Patient has arranged for transport home.
== END 2024-05-08 09:55 | disposition home or self-care (01) | DRG 140 ==
LOC: HO.ED 23:56 → HO.EDOVER 05-06 07:33 → HO.S3 05-06 13:36
PROVIDERS: Admitting Provider Internal Medicine; Emergency Provider Emergency Medicine Emergency Medical Services; PCP Nurse Practitioner Family; Visit Provider Internal Medicine
DX: J44.1 Chronic obstructive pulmonary disease with (acute) exacerbation (principal); J96.21 Acute and chronic respiratory failure with hypoxia; E11.649 Type 2 diabetes mellitus with hypoglycemia without coma; J45.901 Unspecified asthma with (acute) exacerbation; E66.2 Morbid (severe) obesity with alveolar hypoventilation; K21.9 Gastro-esophageal reflux disease without esophagitis; Z68.34 Body mass index [BMI] 34.0-34.9, adult; F17.210 Nicotine dependence, cigarettes, uncomplicated; Z71.6 Tobacco abuse counseling; F14.10 Cocaine abuse, uncomplicated; I10 Essential (primary) hypertension; K22.70 Barrett's esophagus without dysplasia; Z91.199 Patient's noncompliance with other medical treatment and regimen due to unspecified reason; Z99.81 Dependence on supplemental oxygen; Z79.82 Long term (current) use of aspirin; Z79.84 Long term (current) use of oral hypoglycemic drugs; Z79.899 Other long term (current) drug therapy
CPT/HCPCS: 36415; 71045; 80053; 80307; 82803; 82947; 83605; 83690; 83735; 83880; 84484; 85025; 87040; 93005; 94640; 94660; 99285; J0692; J1650; J2919

== ENCOUNTER → 2024-05-05 19:18 | Outpatient (BNV) | payer OTHER, SELFPAY | PROVIDERS: Admitting Provider Internal Medicine; Emergency Provider Emergency Medicine Emergency Medical Services; PCP Nurse Practitioner Family; Visit Provider Internal Medicine Cardiovascular Disease | DX: R06.02 Shortness of breath (principal) | CPT/HCPCS: 93010 ==

== ENCOUNTER → 2024-05-06 07:23 | Outpatient (BNV) | payer OTHER, SELFPAY | PROVIDERS: Admitting Provider Internal Medicine; Emergency Provider Emergency Medicine Emergency Medical Services; PCP Nurse Practitioner Family; Visit Provider Internal Medicine | DX: J96.91 Respiratory failure, unspecified with hypoxia (principal); J98.4 Other disorders of lung; J44.1 Chronic obstructive pulmonary disease with (acute) exacerbation; J18.9 Pneumonia, unspecified organism | CPT/HCPCS: 99223; 99232 ==

== ENCOUNTER 2024-05-13 07:26 | Emergency (ER) | payer OTHER, SELFPAY ==
--- NOTE | ~2024-05-13 | XR_ITS ---
EXAMINATION: XR CHEST CLINICAL INFORMATION: Shortness of breath COMPARISON: X-ray dated May 05, 2024. TECHNIQUE: Frontal view of the chest was obtained. FINDINGS: Indistinct margins in the perihilar regions and prominence of the interstitial lung markings peripherally into the lower hemithoraces. Haziness in the lower hemithoraces. No pneumothorax. Cardiomediastinal silhouette margins are indistinct. Multilevel thoracic spondylosis. Degenerative changes in the shoulders. XR/XR chest 1V IMPRESSION: Consider pulmonary edema and bilateral pleural effusions in the correct clinical settings. Overall worsened since prior exam. Electronically signed by: Sharath Luke MD 05/13/2024 08:30 AM [facility]
--- NOTE | 2024-05-13 07:31 | ECG_ITS ---
Test Reason : Shortness of breath Blood Pressure : / mmHG Vent. Rate : 096 BPM Atrial Rate : 096 BPM P-R Int : 140 ms QRS Dur : 090 ms QT Int : 370 ms P-R-T Axes : 068 179 057 degrees QTc Int : 467 ms Sinus rhythm with occasional Premature ventricular complexes and Premature atrial complexes Right ventricular hypertrophy Inferior infarct , age undetermined Abnormal ECG When compared with ECG of 05-MAY-2024 19:22, Premature atrial complexes are now Present OR interval has increased Questionable change in QRS axis Referred By: Yolanda Zuniga Electronically Signed By:Dallin [place]
--- NOTE | 2024-05-13 07:35 | ED.SOB ---
HPI - SOB/Dyspnea General Chief Complaint: Dyspnea Stated Complaint: SOB,DUONEB GIVEN PER EMS Time Seen by Provider: 05/13/24 07:30 Source: patient Mode of arrival: EMS History of Present Illness ED Provider: Efrain THOMAS Narrative: 54-year-old female with history of COPD comes in with worsening shortness of breath over the past couple of days but denies any associated fever, chills does report an increased cough and production. EMS administered Solu-Medrol and 1 nebulized treatment in route and patient endorses feeling somewhat better. Related Data Home Medications ?Medication ?Instructions ?Recorded ?Confirmed dexlansoprazole 60 mg 60 mg PO DAILY@0630 12/16/23 05/06/24 capsule,biphase delayed release (Dexilant) nicotine 21 mg/24 hr daily 1 patch transdermal DAILY PRN 04/05/24 05/06/24 transdermal patch Nicotine Cravings Previous Rx's ?Medication ?Instructions ?Recorded lancets 28 gauge (FreeStyle #100 ea 01/20/21 Lancets) 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 meter (FreeStyle #1 ea 03/01/22 Lite Meter kit) blood sugar diagnostic (FreeStyle #100 ea 09/16/22 Lite Strips) calcium carbonate 500 mg-vitamin 1 tab PO BID 30 days #60 tabs 12/09/23 D3 10 mcg (400 unit) tablet furosemide 20 mg tablet 20 mg PO DAILY #90 tabs 12/09/23 acetaminophen 650 mg 650 mg PO Q12H PRN pain 30 days 01/01/24 tablet,extended release #60 tabs aspirin 81 mg tablet,delayed 81 mg PO DAILY 90 days #90 tabs 01/01/24 release theophylline 400 mg 400 mg PO BID 90 days #180 tabs 01/27/24 tablet,extended release 24 hr losartan 25 mg tablet 25 mg PO DAILY 90 days #90 tabs 02/14/24 glipizide 5 mg tablet 5 mg PO DAILY #90 tabs 04/08/24 sertraline 100 mg tablet 100 mg PO DAILY #90 tabs 04/08/24 albuterol sulfate 90 mcg/actuation 2 puff inhalation Q6H PRN for 04/10/24 aerosol inhaler (Ventolin HFA) wheezing #1 ea atorvastatin 20 mg tablet 20 mg PO BEDTIME 90 days #90 tabs 04/23/24 ipratropium bromide 0.02 % 2.5 ml inhalation Q6H PRN Wheezing 04/28/24 solution for inhalation #150 mL tiotropium 2.5 mcg-olodaterol 2.5 2 puff inhalation DAILY #4 grams 04/28/24 mcg/actuation mist for inhalation (Stiolto Respimat) gabapentin 800 mg tablet 800 mg PO TID PRN Pain 30 days #90 05/04/24 tabs tizanidine 4 mg tablet 4 mg PO Q12H PRN muscle spasm 30 05/08/24 days #60 tabs ibuprofen 800 mg tablet 800 mg PO BID PRN pain #60 tabs 05/12/24 prednisone 10 mg tablet 10 mg PO DIRECTED #50 tabs 05/12/24 Allergies Allergy/AdvReac Type Severity Reaction Status Date / Time doxycycline Allergy Severe Swelling Verified 05/13/24 07:45 varenicline [From CHANTIX] Allergy Severe ANAPHYLAXIS Verified 05/13/24 07:45 azithromycin Allergy Intermediate Rash Verified 05/13/24 07:45 barium sulfate Allergy Intermediate angioedema Verified 05/13/24 07:45 cetirizine Allergy Mild Rash Verified 05/13/24 07:45 famotidine Allergy Mild Rash Verified 05/13/24 07:45 linaclotide [Linzess] Allergy Mild Rash Verified 05/13/24 07:45 Review of Systems Review of Systems: Pertinent positives and negatives as stated in HPI [facility] Past Medical History Medical History Hypoxic respiratory failure Nocturnal hypoxemia HENRY (obstructive sleep apnea) COPD (chronic obstructive pulmonary disease) Diabetes mellitus COPD exacerbation Crack cocaine use Hyperkalemia Metabolic acidosis Leukocytosis Chest discomfort Chronic renal failure, stage 2 (mild) SOB (shortness of breath) Asthma Smoker Rotator cuff tendonitis GERD (gastroesophageal reflux disease) Chronic idiopathic constipation Bustos's esophagus Depression High triglycerides Gastroparesis Carpal tunnel syndrome of right wrist Nausea & vomiting Hernia Acute and chronic respiratory failure, unspecified whether with hypoxia or hypercapnia HTN (hypertension) Obesity (BMI 30-39.9) Knee pain, bilateral Surgical History History of cholecystectomy (~1988) History of carpal tunnel release Hx of tubal ligation History of pubovaginal sling (~2015) History of umbilical hernia repair (~2001) Hx of section History of open reduction and internal fixation (ORIF) procedure History of esophagogastroduodenoscopy (EGD) Family History Family History Father Heart disease HENRY (obstructive sleep apnea) Family history of breast cancer Mother Asthma Emphysema, unspecified Bronchitis Smoker Alcoholism Bone marrow disease Maternal Grandmother Diabetes Social History Social History Household Members: Other Household Members Other:: sister Housing: House Are you a primary plant care worker to a significant other at home: No Do you presently have visiting nurse or other home services: No Unable to assess alcohol history related to: Unknown Alcohol intake: former Comment: Sleeping Patient Tobacco Use Status: Current everyday Tobacco user Tobacco use type: Cigarette Cigarette Packs Per Day: 1 Cigarettes Per Day: 20.0 Years Smoked: 48 Smoked in Last 30 Days: Yes e-Cigarette/Vaping Use: Never Used Second Hand Smoke Exposure: No Use of substances other than those prescribed or required for medical reasons: Yes Substance Use Type: Crack/Cocaine Advance Directives: Yes Advance Directives on File: Yes Advance Directives Date on File: 12/19/23 service: No Current occupational status: disabled 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 Physical Exam Vital Signs: Vital Signs: Last Vital Signs Temp 97.6 F 05/13/24 08:13 Pulse 108 H 05/13/24 07:40 Resp 18 05/13/24 07:40 BP 109/55 L 05/13/24 07:40 Pulse Ox 93 05/13/24 07:40 O2 Del Method Nasal Cannula 05/13/24 07:40 Oxygen Flow Rate 2 05/13/24 07:40 BMI result Body Mass Index 36.1 VITAL SIGNS: Reviewed. GENERAL: Well developed, well nourished, in no acute distress. HEAD: Normocephalic/atraumatic EYES: PERRLA, EOMI EARS: Ext canals without abnormality NOSE: Nares patent bilateral OROPHARYNX: no oral lesions noted, posterior pharynx clear NECK: Supple, no adenopathy LUNGS: Decreased breath sounds throughout, increased work of breathing, tachypnea. SpO2<> CARDIOVASCULAR: Regular rate and rhythm without noted murmurs ABDOMEN: Soft, non-tender, non-distended with bowel sounds. MUSCULOSKELETAL: No tenderness, deformities, or effusions noted on gross inspection. EXTREMITIES: No cyanosis, clubbing or edema. SKIN: Inspection of the skin reveals no rashes NEUROLOGIC: Alert and oriented x 4. Strength and sensation to light touch were grossly intact x 4. Medications Administered Discontinued Medications Generic Name Dose Route Start Last Admin Trade Name Freq PRN Reason Stop Dose Admin Albuterol Sulfate 7.5 mg/ 10 mg 05/13/24 07:31 05/13/24 07:45 Albuterol Sulfate 2.5 mg INHALE 05/13/24 07:32 Not Given ONCE ONE Albuterol Sulfate 7.5 mg/ 0 mg 05/13/24 07:34 05/13/24 07:40 Albuterol/Ipratropium 3 ml INHALE 05/13/24 07:35 1 each ONCE ONE Administration Medical Decision Making Medical Decision Making MDM Narrative: 54-year-old female with history and clinical presentation, DD DX: COPD exacerbation, will rule out pneumonia or viral illness, patient considered for possible admission but depends on clinical improvement. EKG: SR, HR-97, no STEMI, KS/QRS/QTC is within normal limits. 0935: I reviewed and interpreted all investigations there is noted leukocytosis with chronically stable microcytic anemia and mildly elevated platelet count which is probably reactive in nature. VBG does not demonstrate any respiratory acidosis or significant hypercapnia. I sensitivity troponin is noted to be chronically elevated, patient has no complaints of chest pain and there are no noted acute changes on EKG. Patient has had lactic acid and blood cultures as well as antibiotics ordered, she is currently oxygenating well on home oxygen of 3 L but continues to have increased level of work of breathing, will continue DuoNeb treatments and admit for further observation. Chest x-ray demonstrates interstitial edema, will obtain BNP but otherwise no clinical findings to suggest pulmonary edema at this time. Chemistry indices do not demonstrate ELLIOT/electrolyte or liver enzyme derangements, there is a noted hyperglycemia but felt that this is secondary to steroids. BNP is not elevated. I discussed the case with inpatient hospitalist, Dr. Herr, who accepts patient in admission after reviewing the chart. Differential Diagnosis Differential Diagnoses: The differential diagnosis associated with the presentation includes Please see the discussion above Admission/Observation Consideration of admission/observation: Escalation of care including admission/observation considered Please see the discussion above Consult Healthcare Provider Management of the patient was discussed with: Hospitalist Will discuss the case with inpatient hospitalist. Lab Data MDM Lab Attestation statement: I reviewed the patient's lab results. Please see the discussion above 05/13/24 09:02 05/13/24 09:02 Labs: Lab Results 05/13/24 05/13/24 05/13/24 Range/Units 08:17 09:02 09:08 WBC 17.9 H (4.8-10.8) X10*3/uL RBC 5.01 (4.20-5.50) X10*6/uL Hgb 11.7 L (12.0-16.0) g/dl Hct 39.3 (37.0-47.0) % MCV 78.4 L (80.0-98.0) fL MCH 23.4 L (27.0-33.0) pg MCHC 29.8 L (31.0-35.0) g/dl RDW 18.0 H (11.0-16.0) % Plt Count 460 H (160-400) X10*3/uL MPV 9.1 L (9.4-12.3) fL Immature Gran % (Auto) 0.5 H (0.0-0.4) % Neut % (Auto) 78.5 H (45-73) % Lymph % (Auto) 16.0 L (20-40) % Cooke % (Auto) 4.1 (2-11) % Eos % (Auto) 0.6 (0-4) % Baso % (Auto) 0.3 (0-2) % Lymph # (Auto) 2.9 (1.2-4.9) X10*3/uL Cooke # (Auto) 0.7 (0.1-1.2) X10*3/uL Eos # (Auto) 0.1 (0.0-0.4) X10*3/uL Baso # (Auto) 0.1 (0.0-0.2) X10*3/uL Abs Immat Gran (auto) 0.09 H (0.00-0.03) X10*3/uL Absolute Neuts (auto) 14.1 H (2.0-8.3) x10*3/uL Absolute Nucleated RBC 0.000 (0.0-0.012) X10*3/uL Nucleated RBC % (auto) 0.0 (0.0-0.2) /100WBC VBG pH 7.39 (7.32-7.43) VBG pCO2 46 mmHg VBG pO2 110 mmHg VBG HCO3 28 H (22-26) mmol/L VBG O2 Saturation 99.0 % VBG Base Excess 3.0 mmol/L Sodium 139 (135-145) mmol/L Potassium 4.1 (3.3-5.1) mmol/L Chloride 102 (96-108) mmol/L Carbon Dioxide 28 (22-29) mmol/L Anion Gap 13 (12-20) BUN 23 H (9-16) mg/dL Creatinine 0.92 (0.5-1.4) mg/dL Estim Creat Clear Calc 62.9 Estimated GFR > 60 Random Glucose 314 H (60-115) mg/dL Lactic Acid 1.4 (0.5-2.0) mmol/L Calcium 8.5 D (8.4-10.2) mg/dL Total Bilirubin 0.2 (0.0-1.0) mg/dL AST 14 (5-31) U/L ALT 16 (0-31) U/L Alkaline Phosphatase 94 (39-117) U/L Troponin I High Sens 27.5 H (<3.5-17.0) ng/L B-Natriuretic Peptide 33 (<100) pg/mL Total Protein 6.5 (6.5-8.0) g/dL Albumin 3.9 (3.5-5.0) g/dL Independent Interpretation I performed an independent interpretation of an: EKG Interpretation: See above Radiology Impression Discussion of test interpretation with radiology: I discussed test interpretation with the radiologist Radiologist Impression: See above External Record Review External record reviewed: Inpatient record, Prior outpatient labs and Prior outpatient radiology Chronic Conditions Patient?s care impacted by: Other COPD Critical Care Time Critical Care Time Critical Care Time: Yes Total Critical Care Time: 60 Attestation: I personally attest to this time spent taking care of the patient. Discharge Plan Discharge Clinical Impression: Acute exacerbation of chronic obstructive airways disease, Acute respiratory failure Patient Disposition: Admitted As Inpatient Print Language: Gibraltarian
[2024-05-13 07:40] VITALS: BP 109/55; BP 135/78; PULSE 108; PULSE 88; PULSE 97; RESP 18; RESP 22; O2SAT 93; O2SAT 99; BMI 36.1
[2024-05-13] MEDS: Albuterol Sulfate 7.5 MG, Albuterol/Iprat 2.5/0.5MG 3 ML 3 ML INHALE (07:40)
[2024-05-13 08:13] VITALS: TEMP 36.4
[2024-05-13 08:45] LABS: Lactic Acid 1.4 mmol/L (0.5-2.0)
[2024-05-13 09:09] LABS: MANUAL DIFF FLAG NO
[2024-05-13 09:10] LABS: Venous Blood Gas Refer to POC result
[2024-05-13 09:11] LABS: Basophils Absolute Auto 0.1 X10*3/uL (0.0-0.2); Basophils Percent Auto 0.3 % (0-2); Eosinophils Absolute Auto 0.1 X10*3/uL (0.0-0.4); Eosinophils Percent Auto 0.6 % (0-4); Hematocrit 39.3 % (37.0-47.0); Hemoglobin 11.7 g/dl (12.0-16.0); Imm Gran Abs Auto 0.09 X10*3/uL (0.00-0.03); Imm Gran Pct Auto 0.5 % (0.0-0.4); Lymphocytes Absolute Auto 2.9 X10*3/uL (1.2-4.9); Mean Corpuscular HGB Conc 29.8 g/dl (31.0-35.0); Mean Corpuscular Hemoglobin 23.4 pg (27.0-33.0); Mean Corpuscular Volume 78.4 fL (80.0-98.0); Mean Platelet Volume 9.1 fL (9.4-12.3); Monocytes Absolute Auto 0.7 X10*3/uL (0.1-1.2); Monocytes Percent Auto 4.1 % (2-11); Neutrophils Absolute Auto 14.1 x10*3/uL (2.0-8.3); Neutrophils Percent Auto 78.5 % (45-73); Platelet Count 460 X10*3/uL (160-400); Red Blood Count 5.01 X10*6/uL (4.20-5.50); White Blood Count 17.9 X10*3/uL (4.8-10.8)
[2024-05-13 09:13] LABS: VBG HCO3 28 mmol/L (22-26); VBG pCO2 46 mmHg; VBG pH 7.39 (7.32-7.43); VBG pO2 110 mmHg
[2024-05-13 09:30] LABS: Troponin-I High Sensitivity 27.5 ng/L (<3.5-17.0)
[2024-05-13 09:41] LABS: Alanine Aminotransferase 16 U/L (0-31); Albumin Level 3.9 g/dL (3.5-5.0); Alkaline Phosphatase 94 U/L (39-117); Anion Gap 13 (12-20); Aspartate Amino Transferase 14 U/L (5-31); Bilirubin Total 0.2 mg/dL (0.0-1.0); Blood Urea Nitrogen 23 mg/dL (9-16); Calcium 8.5 mg/dL (8.4-10.2); Carbon Dioxide 28 mmol/L (22-29); Chloride 102 mmol/L (96-108); Creatinine Clr Calc Pharmacy 62.9; Estimated Glomerular Filt Rate > 60; Glucose Random 314 mg/dL (60-115); Potassium 4.1 mmol/L (3.3-5.1); Sodium 139 mmol/L (135-145); Total Protein 6.5 g/dL (6.5-8.0)
--- NOTE | 2024-05-13 09:57 | PC.NURSE ---
From [facility] with complaints of sob and not feeling well since yesterday. States was just discharged from here last week but once she got home she started having trouble breathing. Reports smokes and occasional crack use (last use 2 weeks ago) Denies pain or discomfort , respiratory at bedside starting updraft- patient putting updraft down despite education stating she has had enough of it
[2024-05-13 10:15] LABS: B Type Natriuretic Peptide 33 pg/mL (<100)
--- NOTE | 2024-05-13 11:14 | PHA.MEDREC ---
Pharmacy Consult ? Medication Reconciliation Pharmacy has completed the medication reconciliation. Spoke with pt at bedside. She states there have been no changes since her last admission. Utilized discharge packet from 05/08. Pt states she completed prednisone course yesterday.
--- NOTE | 2024-05-13 11:21 | PC.NURSE ---
Patient educated about risks of leaving [facility], stating she feels fine and wants to go home. Provider aware and discharged patient. Patient stating he friend picking her up will bring 02 , brought to waiting room in wheelchair on 2 liters 02
[2024-05-13 11:22] VITALS: BP 105/60; PULSE 98; RESP 20; TEMP 37.2; O2SAT 98
== END 2024-05-13 11:23 | disposition left against medical advice (07) ==
PROVIDERS: Emergency Provider Student in an Organized Health Care Education/Training Program; PCP Nurse Practitioner Family
DX: J44.1 Chronic obstructive pulmonary disease with (acute) exacerbation (principal); J96.00 Acute respiratory failure, unspecified whether with hypoxia or hypercapnia; R94.31 Abnormal electrocardiogram [ECG] [EKG]; Z79.899 Other long term (current) drug therapy
CPT/HCPCS: 36415; 71045; 80053; 82803; 83605; 83880; 84484; 85025; 87040; 93005; 94640; 99284; 99285

== ENCOUNTER → 2024-05-13 07:31 | Outpatient (BNV) | payer OTHER, SELFPAY | PROVIDERS: Emergency Provider Student in an Organized Health Care Education/Training Program; PCP Nurse Practitioner Family; Visit Provider Internal Medicine Cardiovascular Disease | DX: R06.02 Shortness of breath (principal) | CPT/HCPCS: 93010 ==

== ENCOUNTER → 2024-05-13 07:31 | Outpatient (BNV) | payer OTHER, SELFPAY | PROVIDERS: Emergency Provider Student in an Organized Health Care Education/Training Program; PCP Nurse Practitioner Family; Visit Provider Radiology Diagnostic Radiology | DX: R06.02 Shortness of breath (principal) | CPT/HCPCS: 71045 ==

== ENCOUNTER 2024-05-15 06:37 | Emergency (ER) | payer OTHER, SELFPAY ==
[2024-05-15 06:39] VITALS: BP 124/68; BP 125/68; PULSE 108; PULSE 60; RESP 16; TEMP 36.4; O2SAT 90; O2SAT 99; BMI 35.8
[2024-05-15 06:48] VITALS: BP 124/68; PULSE 108; RESP 16; TEMP 523.8; TEMP 975; O2SAT 90
[2024-05-15] MEDS: Albuterol Sulfate 5 MG, Albuterol/Iprat 2.5/0.5MG 3 ML 3 ML INHALE (07:23)
[2024-05-15 07:24] VITALS: PULSE 105; RESP 20; O2SAT 95
--- NOTE | 2024-05-15 07:24 | ED_ITS ---
HPI - SOB/Dyspnea General Chief Complaint: Dyspnea Stated Complaint: hxCOPD, SOB, wheezing all gallagher, regular neb Time Seen by Provider: 05/15/24 06:56 Source: patient Mode of arrival: EMS History of Present Illness ED Provider: Efrain THOMAS Narrative: 4-year-old female who arrives via EMS, she was seen here yesterday, adamantly states that she is not staying for any admission and reports that she fell asleep without her home oxygen and did not use her CPAP last night and so woke up with shortness of breath this morning. Related Data Home Medications ?Medication ?Instructions ?Recorded ?Confirmed dexlansoprazole 60 mg 60 mg PO DAILY@0630 12/16/23 05/13/24 capsule,biphase delayed release (Dexilant) nicotine 21 mg/24 hr daily 1 patch transdermal DAILY PRN 04/05/24 05/13/24 transdermal patch Nicotine Cravings Previous Rx's ?Medication ?Instructions ?Recorded lancets 28 gauge (FreeStyle #100 ea 01/20/21 Lancets) 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 meter (FreeStyle #1 ea 03/01/22 Lite Meter kit) blood sugar diagnostic (FreeStyle #100 ea 09/16/22 Lite Strips) calcium carbonate 500 mg-vitamin 1 tab PO BID 30 days #60 tabs 12/09/23 D3 10 mcg (400 unit) tablet furosemide 20 mg tablet 20 mg PO DAILY #90 tabs 12/09/23 acetaminophen 650 mg 650 mg PO Q12H PRN pain 30 days 01/01/24 tablet,extended release #60 tabs aspirin 81 mg tablet,delayed 81 mg PO DAILY 90 days #90 tabs 01/01/24 release theophylline 400 mg 400 mg PO BID 90 days #180 tabs 01/27/24 tablet,extended release 24 hr losartan 25 mg tablet 25 mg PO DAILY 90 days #90 tabs 02/14/24 glipizide 5 mg tablet 5 mg PO DAILY #90 tabs 04/08/24 sertraline 100 mg tablet 100 mg PO DAILY #90 tabs 04/08/24 albuterol sulfate 90 mcg/actuation 2 puff inhalation Q6H PRN for 04/10/24 aerosol inhaler (Ventolin HFA) wheezing #1 ea atorvastatin 20 mg tablet 20 mg PO BEDTIME 90 days #90 tabs 10/24/24 ipratropium bromide 0.02 % 2.5 ml inhalation Q6H PRN Wheezing 04/28/24 solution for inhalation #150 mL tiotropium 2.5 mcg-olodaterol 2.5 2 puff inhalation DAILY #4 grams 04/28/24 mcg/actuation mist for inhalation (Stiolto Respimat) gabapentin 800 mg tablet 800 mg PO TID PRN Pain 30 days #90 05/04/24 tabs tizanidine 4 mg tablet 4 mg PO Q12H PRN muscle spasm 30 05/08/24 days #60 tabs ibuprofen 800 mg tablet 800 mg PO BID PRN pain #60 tabs 05/12/24 prednisone 10 mg tablet 10 mg PO DIRECTED #50 tabs 05/13/24 Allergies Allergy/AdvReac Type Severity Reaction Status Date / Time doxycycline Allergy Severe Swelling Verified 05/15/24 06:47 varenicline [From CHANTIX] Allergy Severe ANAPHYLAXIS Verified 05/15/24 06:47 azithromycin Allergy Intermediate Rash Verified 05/15/24 06:47 barium sulfate Allergy Intermediate angioedema Verified 05/15/24 06:47 cetirizine Allergy Mild Rash Verified 05/15/24 06:47 famotidine Allergy Mild Rash Verified 05/15/24 06:47 linaclotide [Linzess] Allergy Mild Rash Verified 05/15/24 06:47 Review of Systems Review of Systems: Pertinent positives and negatives as stated in HPI [facility] Past Medical History Medical History Hypoxic respiratory failure Nocturnal hypoxemia HENRY (obstructive sleep apnea) COPD (chronic obstructive pulmonary disease) Diabetes mellitus COPD exacerbation Crack cocaine use Hyperkalemia Metabolic acidosis Leukocytosis Chest discomfort Chronic renal failure, stage 2 (mild) SOB (shortness of breath) Asthma Smoker Rotator cuff tendonitis GERD (gastroesophageal reflux disease) Chronic idiopathic constipation Bustos's esophagus Depression High triglycerides Gastroparesis Carpal tunnel syndrome of right wrist Nausea & vomiting Hernia Acute and chronic respiratory failure, unspecified whether with hypoxia or hypercapnia HTN (hypertension) Obesity (BMI 30-39.9) Knee pain, bilateral Surgical History History of cholecystectomy (~1988) History of carpal tunnel release Hx of tubal ligation History of pubovaginal sling (~2015) History of umbilical hernia repair (~2001) Hx of section History of open reduction and internal fixation (ORIF) procedure History of esophagogastroduodenoscopy (EGD) Family History Family History Father Heart disease HENRY (obstructive sleep apnea) Family history of breast cancer Mother Asthma Emphysema, unspecified Bronchitis Smoker Alcoholism Bone marrow disease Maternal Grandmother Diabetes Social History Social History Household Members: Other Household Members Other:: sister Housing: House Are you a primary career technical education instructor to a significant other at home: No Do you presently have visiting nurse or other home services: No Unable to assess alcohol history related to: Unknown Alcohol intake: former Comment: Sleeping Patient Tobacco Use Status: Current everyday Tobacco user Tobacco use type: Cigarette Cigarette Packs Per Day: 1 Cigarettes Per Day: 20.0 Years Smoked: 48 Smoked in Last 30 Days: Yes e-Cigarette/Vaping Use: Never Used Second Hand Smoke Exposure: No Use of substances other than those prescribed or required for medical reasons: No Substance Use Type: Crack/Cocaine Advance Directives: Yes Advance Directives on File: Yes Advance Directives Date on File: 12/19/23 Do you have a plan to hurt others: No Plan Patient : No service: No Current occupational status: disabled 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 Physical Exam Vital Signs: Vital Signs: Last Vital Signs Temp 98.3 F 05/15/24 08:00 Pulse 103 H 05/15/24 08:00 Resp 18 05/15/24 08:00 BP 122/65 05/15/24 08:00 Pulse Ox 95 05/15/24 08:00 O2 Del Method Nasal Cannula 05/15/24 08:00 O2 Flow Rate 3 05/15/24 08:00 BMI result Body Mass Index 35.8 VITAL SIGNS: Reviewed. GENERAL: Elevated BMI, Well developed, well nourished, in no acute distress. HEAD: Normocephalic/atraumatic EYES: PERRLA, EOMI EARS: Ext canals without abnormality NOSE: Nares patent bilateral OROPHARYNX: no oral lesions noted, posterior pharynx clear NECK: Supple, no adenopathy LUNGS: Decreased breath sounds, no significant tachypnea or increased work of breathing SpO2<90> on room air, patient then placed on home oxygen of 3 L CARDIOVASCULAR: Regular rate and rhythm without noted murmurs ABDOMEN: Soft, non-tender, non-distended with bowel sounds. MUSCULOSKELETAL: No tenderness, deformities, or effusions noted on gross ins pection. EXTREMITIES: No cyanosis, clubbing or edema. SKIN: Inspection of the skin reveals no rashes NEUROLOGIC: Alert and oriented x 4. Strength and sensation to light touch were grossly intact x 4. Medications Administered Discontinued Medications Generic Name Dose Route Start Last Admin Trade Name Freq PRN Reason Stop Dose Admin Albuterol Sulfate 5 mg/ 0 mg 05/15/24 07:20 05/15/24 07:23 Albuterol/Ipratropium 3 ml INHALE 05/15/24 07:21 7.5 each ONCE ONE Administration Medical Decision Making Medical Decision Making [facility] Narrative: 54-year-old female with history and clinical presentation, I do not think that she is in acute respiratory distress, she does not need repeat lab work, she has prescriptions that were sent to her home, she is being placed on her home oxygen at this time and on re-evaluation appears to be satting at her normal rate, patient refuses admission but will treat with bronchodilators prior to discharge. On re-evaluation at 08:34 patient is feeling much better, still declines admission, wants to go home and is otherwise discharged. Differential Diagnosis Differential Diagnoses: The differential diagnosis associated with the presentation includes See above Admission/Observation Consideration of admission/observation: Escalation of care including admission/observation considered Patient does not meet inpatient level of care at this time. Lab Data [facility] Lab Attestation statement: I reviewed the patient's lab results. Please see the discussion above External Record Review External record reviewed: Inpatient record, Prior outpatient labs and Outside ED record Discharge Plan Discharge Clinical Impression: COPD (chronic obstructive pulmonary disease), Hypoxia Patient Disposition: Home, Self-Care Instructions: Hypoxia (ED), COPD (Chronic Obstructive Pulmonary Disease) (ED) Additional Instructions: Resume all home medications as prescribed. You need to wear your CPAP at night and be sure to wear your home oxygen as prescribed. Follow-up with your primary care doctor and return to the ER for any worsening symptoms. Prescriptions: No Action (DME) lancets [FreeStyle Lancets] 28 gauge misc See Rx Instructions .ROUTE .MEDSUPPLY Qty: 100 1RF Rx Instructions: Use to check blood sugar daily or if symptomatic hypo/hypergylcemia (DME) 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 meter [FreeStyle Lite Meter] Kit See Rx Instructions .ROUTE .MEDSUPPLY Qty: 1 0RF Rx Instructions: Use to check blood sugar daily or if symptomatic for hypo/hyperglycemia (DME) FreeStyle Lite Strips Strip See Rx Instructions .ROUTE .MEDSUPPLY Qty: 100 1RF Rx Instructions: Use to check blood sugar daily or if symptomatic hypo/hypergylcemia calcium carbonate-vitamin D3 500 mg-10 mcg (400 unit) tablet 1 tab PO BID 30 Days Qty: 60 6RF furosemide 20 mg tablet 20 mg PO DAILY Qty: 90 3RF acetaminophen 650 mg tablet extended release 650 mg PO Q12H PRN (Reason: pain) 30 Days Qty: 60 0RF aspirin 81 mg tablet,delayed release (DR/EC) 81 mg PO DAILY 90 Days Qty: 90 1RF theophylline 400 mg tablet extended release 24 hr 400 mg PO BID 90 Days Qty: 180 4RF sertraline 100 mg tablet 100 mg PO DAILY Qty: 90 0RF glipizide 5 mg tablet 5 mg PO DAILY Qty: 90 0RF albuterol sulfate [Ventolin HFA] 90 mcg/actuation HFA aerosol inhaler 2 puff inhalation Q6H PRN (Reason: for wheezing) Qty: 1 6RF ipratropium bromide 0.02 % solution 2.5 ml inhalation Q6H PRN (Reason: Wheezing) Qty: 150 6RF Stiolto Respimat 2.5-2.5 mcg/actuation mist 2 puff INHALATION DAILY Qty: 4 6RF gabapentin 800 mg tablet 800 mg PO TID PRN (Reason: Pain) 30 Days Qty: 90 0RF tizanidine 4 mg tablet 4 mg PO Q12H PRN (Reason: muscle spasm) 30 Days Qty: 60 0RF Rx Instructions: do not take concurrently with famotidine ibuprofen 800 mg tablet 800 mg PO BID PRN (Reason: pain) Qty: 60 0RF Rx Instructions: please use sparingly due to diabetes prednisone 10 mg tablet 10 mg PO DIRECTED Qty: 50 0RF Rx Instructions: Take 4 pills daily for 5 days, then go down by 1 tab every 5 days nicotine 21 mg/24 hr Patch 24 Hour 1 patch TRANSDERMAL DAILY PRN (Reason: Nicotine Cravings) dexlansoprazole [Dexilant] 60 mg capsule,biphase delayed releas 60 mg PO DAILY@0630 losartan 25 mg tablet 25 mg PO DAILY 90 Days Qty: 90 0RF atorvastatin 20 mg tablet 20 mg PO BEDTIME 90 Days Qty: 90 0RF Referrals: Joe Hale, [facility] [Primary Care Provider] - Print Language: Bengali
--- NOTE | 2024-05-15 07:25 | PC.NURSE ---
this nurse took over care of patient at 7am, patient a&ox3, lungs clear/diminished throughout, pt was not wearing her home O2 or her bipap at night, pt was placed on 3L NC which is her home O2, rr currently equal/non labored, RT at bedside, call ott within reach, will continue to monitor
[2024-05-15 08:00] VITALS: BP 122/65; PULSE 103; RESP 18; TEMP 36.8; O2SAT 95
[2024-05-15 09:12] VITALS: BP 121/66; PULSE 100; RESP 18; TEMP 36.7; O2SAT 95
== END 2024-05-15 09:15 | disposition home or self-care (01) ==
PROVIDERS: Emergency Provider Student in an Organized Health Care Education/Training Program; PCP Nurse Practitioner Family
DX: J44.9 Chronic obstructive pulmonary disease, unspecified (principal); R09.02 Hypoxemia; R06.02 Shortness of breath
CPT/HCPCS: 94640; 99284; 99285

== ENCOUNTER 2024-06-25 20:59 | Inpatient (IN) | payer OTHER, SELFPAY ==
--- NOTE | ~2024-06-25 | XR_ITS ---
EXAMINATION: XR CHEST CLINICAL INFORMATION: Shortness of breath. COMPARISON: Prior chest radiographs, most recently 05/13/2024. TECHNIQUE: Frontal view of the chest was obtained. FINDINGS: No significant abnormality is noted involving the heart, lungs, mediastinum, bony thorax or soft tissues. There are multiple old, healed left rib fractures. There is calcific tendinitis of the left rotator cuff. XR/XR chest 1V IMPRESSION: No focal infiltrate or congestive heart failure is seen. Electronically signed by: Joe Galaviz MD 06/25/2024 10:00 PM [facility]
[2024-06-25 21:00] VITALS: BP 100/65; BP 98/64; PULSE 126; PULSE 140; RESP 26; TEMP 36.4; O2SAT 97; BMI 34.9
--- NOTE | 2024-06-25 21:02 | ECG_ITS ---
Test Reason : SOB Blood Pressure : / mmHG Vent. Rate : 139 BPM Atrial Rate : 139 BPM P-R Int : 112 ms QRS Dur : 082 ms QT Int : 290 ms P-R-T Axes : 062 177 041 degrees QTc Int : 441 ms Poor data quality Possible Atrial fibrillation with rapid ventricular response Right axis deviation Possible Inferior infarct (cited on or before 13-MAY-2024) Abnormal ECG When compared with ECG of 13-MAY-2024 07:42, Possible Atrial fibrillation with rapid ventricular response Repeat EKG Referred By: Jocy Ni Electronically Signed By:PAUL VARGAS MD
--- NOTE | 2024-06-25 21:02 | ED.SOB ---
HPI - SOB/Dyspnea General Chief Complaint: Dyspnea Stated Complaint: WHEEZING Time Seen by Provider: 06/25/24 21:01 Source: patient Limitations: no limitations History of Present Illness ED Provider: Jocy Cheatham PA-C HPI Narrative: 54-year-old female with a history of chronic hypoxemic respiratory failure due to COPD-asthma overlap syndrome, HENRY/OHS on nocturnal BiPAP, dgt-zzzycry-hhtomtdeu diabetes mellitus, hypertension, gastroesophageal reflux disease, active tobacco use disorder, history of cocaine use, obesity who presents to the emergency department for evaluation of dyspnea x2 days. Associated cough and cold symptoms, denies fever. Denies chest pain. Patient has been using her home inhalers and nebulizer without relief from symptoms. No sick contacts. Related Data Home Medications ?Medication ?Instructions ?Recorded ?Confirmed dexlansoprazole 60 mg 60 mg PO DAILY@0630 12/16/23 05/13/24 capsule,biphase delayed release (Dexilant) nicotine 21 mg/24 hr daily 1 patch transdermal DAILY PRN 04/05/24 05/13/24 transdermal patch Nicotine Cravings Previous Rx's ?Medication ?Instructions ?Recorded lancets 28 gauge (FreeStyle #100 ea 01/20/21 Lancets) 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 meter (FreeStyle #1 ea 03/01/22 Lite Meter kit) blood sugar diagnostic (FreeStyle #100 ea 09/16/22 Lite Strips) calcium 500 mg (as 1 tab PO BID 30 days #60 tabs 12/09/23 carbonate)-vitamin D3 10 mcg (400 unit) tablet furosemide 20 mg tablet 20 mg PO DAILY #90 tabs 12/09/23 acetaminophen 650 mg 650 mg PO Q12H PRN pain 30 days 01/01/24 tablet,extended release #60 tabs aspirin 81 mg tablet,delayed 81 mg PO DAILY 90 days #90 tabs 01/01/24 release theophylline 400 mg 400 mg PO BID 90 days #180 tabs 01/27/24 tablet,extended release 24 hr losartan 25 mg tablet 25 mg PO DAILY 90 days #90 tabs 02/14/24 glipizide 5 mg tablet 5 mg PO DAILY #90 tabs 04/08/24 sertraline 100 mg tablet 100 mg PO DAILY #90 tabs 04/08/24 albuterol sulfate 90 mcg/actuation 2 puff inhalation Q6H PRN for 04/10/24 aerosol inhaler (Ventolin HFA) wheezing #1 ea atorvastatin 20 mg tablet 20 mg PO BEDTIME 90 days #90 tabs 04/23/24 tiotropium 2.5 mcg-olodaterol 2.5 2 puff inhalation DAILY #4 grams 04/28/24 mcg/actuation mist for inhalation (Stiolto Respimat) ipratropium bromide 0.02 % 2.5 ml inhalation Q6H PRN Wheezing 05/25/24 solution for inhalation #150 mL prednisone 20 mg tablet 40 mg (2 x 20 mg) PO DAILY #10 tabs 05/25/24 gabapentin 800 mg tablet 800 mg PO TID PRN Pain 30 days #90 06/09/24 tabs ibuprofen 800 mg tablet 800 mg PO BID PRN pain #60 tabs 06/11/24 tizanidine 4 mg tablet 4 mg PO Q12H PRN muscle spasm 30 06/11/24 days #60 tabs Allergies Allergy/AdvReac Type Severity Reaction Status Date / Time doxycycline Allergy Severe Swelling Verified 06/25/24 21:42 varenicline [From CHANTIX] Allergy Severe ANAPHYLAXIS Verified 06/25/24 21:42 azithromycin Allergy Intermediate Rash Verified 06/25/24 21:42 barium sulfate Allergy Intermediate angioedema Verified 06/25/24 21:42 cetirizine Allergy Mild Rash Verified 06/25/24 21:42 famotidine Allergy Mild Rash Verified 06/25/24 21:42 linaclotide [Linzess] Allergy Mild Rash Verified 06/25/24 21:42 Review of Systems Review of Systems: Yes all other systems are reviewed and are negative Constitutional: Constitutional: Denies fatigue and Denies fever(s) Cardiovascular: Cardiovascular: Denies chest pain and Reports dyspnea Respiratory: Respiratory: Reports chest congestion, Reports cough, Reports dyspnea and Reports wheezing Gastrointestinal: Gastrointestinal: Denies abdominal pain, Denies nausea and Denies vomiting Endocrine: Endocrine: Denies fatigue Allergic/Immunologic: Allergic/Immunologic: Reports wheezing PMFSH Past Medical History Attestation statement: The following information was validated with the patient. Medical History Chronic lung disease Hypoxic respiratory failure Nocturnal hypoxemia HENRY (obstructive sleep apnea) COPD (chronic obstructive pulmonary disease) Diabetes mellitus COPD exacerbation Crack cocaine use Hyperkalemia Metabolic acidosis Leukocytosis Chest discomfort Chronic renal failure, stage 2 (mild) SOB (shortness of breath) Asthma Smoker Rotator cuff tendonitis GERD (gastroesophageal reflux disease) Chronic idiopathic constipation Bustos's esophagus Depression High triglycerides Gastroparesis Carpal tunnel syndrome of right wrist Nausea & vomiting Hernia Acute and chronic respiratory failure, unspecified whether with hypoxia or hypercapnia HTN (hypertension) Obesity (BMI 30-39.9) Knee pain, bilateral Surgical History History of cholecystectomy (~1988) History of carpal tunnel release Hx of tubal ligation History of pubovaginal sling (~2015) History of umbilical hernia repair (~2001) Hx of section History of open reduction and internal fixation (ORIF) procedure History of esophagogastroduodenoscopy (EGD) Family History Family History Father Heart disease HENRY (obstructive sleep apnea) Family history of breast cancer Mother Asthma Emphysema, unspecified Bronchitis Smoker Alcoholism Bone marrow disease Maternal Grandmother Diabetes Social History Social History Household Members: Other Household Members Other:: sister Housing: House Are you a primary patient care technician to a significant other at home: No Do you presently have visiting nurse or other home services: No Unable to assess alcohol history related to: Unknown Alcohol intake: former Comment: Sleeping Patient Tobacco Use Status: Current everyday Tobacco user Tobacco use type: Cigarette Cigarette Packs Per Day: 1 Cigarettes Per Day: 20.0 Years Smoked: 48 Smoked in Last 30 Days: Yes e-Cigarette/Vaping Use: Never Used Second Hand Smoke Exposure: No Use of substances other than those prescribed or required for medical reasons: No Substance Use Type: Crack/Cocaine Advance Directives: Yes Advance Directives on File: Yes Advance Directives Date on File: 12/19/23 Do you have a plan to hurt others: No Plan service: No Current occupational status: disabled 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 Physical Exam Vital Signs: Vital Signs: Last Vital Signs Temp 97.8 F 06/26/24 00:00 Pulse 104 H 06/26/24 00:28 Resp 18 06/26/24 00:51 BP 127/73 12/27/24 01:25 Pulse Ox 98 06/26/24 00:46 O2 Del Method BiPAP 06/26/24 00:46 O2 Flow Rate 3 06/26/24 00:00 BMI result Body Mass Index 34.9 Const: Other: Alert, appears older than stated age Orientation/consciousness: patient oriented x3 Resp: Other: Tachypneic, diminished breath sounds Cardio: Other: Normal peripheral perfusion no edema Skin: Other: Warm dry no rash Neuro: General: patient oriented x3 and no focal motor deficits Psych: Other: Cooperative Course Reevaluation(s) Reevaluation #1: Transitioned the patient off BiPAP Reevaluation #2: Patient has been off BiPAP for 45 minutes, Patient is 93-94% on her baseline 3 L of oxygen, her heart rate is also improved, she is now within the lower 100s, the rate still fluctuates Time: 23:14 Medications Administered Generic Name Dose Route Start Last Admin Trade Name Freq PRN Reason Stop Dose Admin Enoxaparin Sodium 40 mg 06/26/24 00:00 06/26/24 01:25 Enoxaparin Sodium 40 Mg/0.4 Ml Syringe SUBCUT 40 mg Q24H [place] Administration Guaifenesin 600 mg 06/25/24 23:35 06/26/24 01:27 Guaifenesin [place] 600 Mg Tab.Er.12h PO 600 mg BID [place] Administration Sodium Chloride 3 ml 06/26/24 00:00 06/26/24 01:27 0.9 % Sodium Chloride Flush 3 Ml Syringe IVFLUSH 3 ml QSHIFT [place] Administration Discontinued Medications Generic Name Dose Route Start Last Admin Trade Name Freq PRN Reason Stop Dose Admin Ceftriaxone Sodium 2 gm 06/25/24 21:02 06/25/24 21:23 Ceftriaxone Sodium 2 Gm Vial IVPUSH 06/25/24 21:03 2 gm ONCE ONE Administration Levalbuterol HCl 2.5 mg/ 0 mg 06/26/24 00:00 06/26/24 00:28 Ipratropium [place] 0.5 mg INHALE 5 dose RQ4H [place] Administration Furosemide 20 mg 06/25/24 23:34 06/26/24 01:25 Furosemide 20 Mg/2 Ml Vial IVPUSH 06/25/24 23:35 20 mg ONCE ONE Administration Protocol Magnesium Sulfate 2 gm in 50 mls @ 25 mls/hr 06/25/24 21:02 06/25/24 21:45 Magnesium Sulfate/H2o IV 06/25/24 23:01 Infused ONCE ONE Infusion Sodium Chloride 1,000 mls @ 999 mls/hr 06/25/24 21:15 06/25/24 21:56 Ns IV 06/25/24 22:15 Not Given .Q1H1M [place] Sodium Chloride 2,349 mls @ 2,349 mls/hr 06/25/24 21:48 06/25/24 23:30 Ns 30 ml/kg infuse over 1 hr (2349 ml) 06/25/24 22:47 Infused IV Infusion .Q1H STA Levofloxacin 750 mg in 150 mls @ 100 mls/hr 06/25/24 21:49 06/26/24 00:26 Levaquin IV 06/25/24 23:18 Infused ONCE ONE Infusion Levalbuterol HCl 5 mg 06/25/24 21:24 06/25/24 21:28 Levalbuterol Hcl 1.25 Mg/3 Ml Vial.Neb INHALE 06/25/24 21:25 5 mg ONCE ONE Administration Methylprednisolone Sodium Succinate 125 mg 06/25/24 21:02 06/25/24 21:23 Methylprednisolone Sod Succ 125 Mg/2 Ml Vial IVPUSH 06/25/24 21:03 125 mg ONCE ONE Administration Medical Decision Making Medical Decision Making MDM Narrative: 54-year-old female with a history of chronic hypoxemic respiratory failure due to COPD-asthma overlap syndrome, HENRY/OHS on nocturnal BiPAP, [id number]-[id number] diabetes mellitus, hypertension, gastroesophageal reflux disease, active tobacco use disorder, history of cocaine use, obesity who presents to the emergency department for evaluation of dyspnea x2 days. Associated cough and cold symptoms, denies fever. Denies chest pain. Patient has been using her home inhalers and nebulizer without relief from symptoms. No sick contacts. Problem: Ongoing tobacco abuse, acute on chronic hypoxic respiratory failure, diabetes, substance abuse, obesity History: Per patient I have considered the following differential diagnoses: Sepsis, COPD exacerbation, pneumonia, viral syndrome, PE , AFib RVR Plan: Concerned for sepsis at this time, the patient is tachycardic with tachypnea, in the setting of active COPD exacerbation. Screening labs including viral panel, blood cultures, lactic acid, chest x-ray ordered. We will be starting empiric antibiotics, we will be giving IV fluid resuscitation, to note she does require the weight based 30 mL/kilogram of resuscitation given her blood pressure is soft. We will be ordering an updraft and Solu-Medrol. There was concern for potential AFib RVR, we will obtain an EKG. This could be driven by fever versus excessive use of albuterol. We will also add a troponin. To note she has no chest pain to suggest ACS. I am considering PE, however she does not have a new oxygen requirement, she does not have objective signs symptoms for DVT on exam, and again, she has no chest pain. I am deferring a dimer. I have independently reviewed the following tests: Labs: Leukocytosis with left shift, not anemic, no electrolyte abnormality, 1st lactic 2.5, the 2nd is 1.6, 1st troponin 18.8, a delta troponin we will be obtained EKG: Sinus tachycardia, PACs, no ischemic changes, QTC 441, rate is currently 139 Chest x-ray: XR/XR chest 1V IMPRESSION: No focal infiltrate or congestive heart failure is seen. Electronically signed by: Joe Galaviz MD 06/25/2024 10:00 PM [facility] Lab Data 06/25/24 21:06 06/25/24 21:06 Labs: Lab Results 06/25/24 06/25/24 06/25/24 Range/Units 21:06 21:09 21:19 WBC 16.4 H (4.8-10.8) X10*3/uL RBC 5.24 (4.20-5.50) X10*6/uL Hgb 12.1 (12.0-16.0) g/dl Hct 40.7 (37.0-47.0) % MCV 77.7 L (80.0-98.0) fL MCH 23.1 L (27.0-33.0) pg MCHC 29.7 L (31.0-35.0) g/dl RDW 18.3 H (11.0-16.0) % Plt Count 443 H (160-400) X10*3/uL MPV 9.2 L (9.4-12.3) fL Immature Gran % (Auto) 0.4 (0.0-0.4) % Neut % (Auto) 64.8 (45-73) % Lymph % (Auto) 25.7 (20-40) % [place] % (Auto) 7.6 (2-11) % Eos % (Auto) 1.0 (0-4) % Baso % (Auto) 0.5 (0-2) % Lymph # (Auto) 4.2 (1.2-4.9) X10*3/uL [place] # (Auto) 1.3 H (0.1-1.2) X10*3/uL Eos # (Auto) 0.2 (0.0-0.4) X10*3/uL Baso # (Auto) 0.1 (0.0-0.2) X10*3/uL Abs Immat Gran (auto) 0.07 H (0.00-0.03) X10*3/uL Absolute Neuts (auto) 10.6 H (2.0-8.3) x10*3/uL Absolute Nucleated RBC 0.000 (0.0-0.012) X10*3/uL Nucleated RBC % (auto) 0.0 (0.0-0.2) /100WBC PT (10.9-12.4) SEC INR (0.9-1.1) VBG pH 7.36 (7.32-7.43) VBG pCO2 55 mmHg VBG pO2 53 mmHg VBG HCO3 32 H (22-26) mmol/L VBG O2 Saturation 83.0 % VBG Base Excess 5.1 mmol/L Sodium 143 (135-145) mmol/L Potassium 3.8 (3.3-5.1) mmol/L Chloride 103 (96-108) mmol/L Carbon Dioxide 27 (22-29) mmol/L Anion Gap 17 (12-20) BUN 10 (9-16) mg/dL Creatinine 0.77 (0.5-1.4) mg/dL Estim Creat Clear Calc 73.7 Estimated GFR > 60 Random Glucose 123 H (60-115) mg/dL Lactic Acid 2.5 H* (0.5-2.0) mmol/L Calcium 8.9 (8.4-10.2) mg/dL Magnesium 1.5 L (1.6-2.6) mg/dL Troponin I High Sens 18.8 H (<3.5-17.0) ng/L B-Natriuretic Peptide 81 (<100) pg/mL Influenza Type A (PCR) NEGATIVE (Negative) Influenza Type B (PCR) NEGATIVE (Negative) RSV RNA Qual (PCR) NEGATIVE (Negative) SARS-CoV-2 RNA (RT-PCR) NEGATIVE (Negative) 06/25/24 Range/Units 22:05 WBC (4.8-10.8) X10*3/uL RBC (4.20-5.50) X10*6/uL Hgb (12.0-16.0) g/dl Hct (37.0-47.0) % MCV (80.0-98.0) fL MCH (27.0-33.0) pg MCHC (31.0-35.0) g/dl RDW (11.0-16.0) % Plt Count (160-400) X10*3/uL MPV (9.4-12.3) fL Immature Gran % (Auto) (0.0-0.4) % Neut % (Auto) (45-73) % Lymph % (Auto) (20-40) % [place] % (Auto) (2-11) % Eos % (Auto) (0-4) % Baso % (Auto) (0-2) % Lymph # (Auto) (1.2-4.9) X10*3/uL [place] # (Auto) (0.1-1.2) X10*3/uL Eos # (Auto) (0.0-0.4) X10*3/uL Baso # (Auto) (0.0-0.2) X10*3/uL Abs Immat Gran (auto) (0.00-0.03) X10*3/uL Absolute Neuts (auto) (2.0-8.3) x10*3/uL Absolute Nucleated RBC (0.0-0.012) X10*3/uL Nucleated RBC % (auto) (0.0-0.2) /100WBC PT 12.4 (10.9-12.4) SEC INR 1.1 (0.9-1.1) VBG pH (7.32-7.43) VBG pCO2 mmHg VBG pO2 mmHg VBG HCO3 (22-26) mmol/L VBG O2 Saturation % VBG Base Excess mmol/L Sodium (135-145) mmol/L Potassium (3.3-5.1) mmol/L Chloride (96-108) mmol/L Carbon Dioxide (22-29) mmol/L Anion Gap (12-20) BUN (9-16) mg/dL Creatinine (0.5-1.4) mg/dL Estim Creat Clear Calc Estimated GFR Random Glucose (60-115) mg/dL Lactic Acid (0.5-2.0) mmol/L Calcium (8.4-10.2) mg/dL Magnesium (1.6-2.6) mg/dL Troponin I High Sens (<3.5-17.0) ng/L B-Natriuretic Peptide (<100) pg/mL Influenza Type A (PCR) (Negative) Influenza Type B (PCR) (Negative) RSV RNA Qual (PCR) (Negative) SARS-CoV-2 RNA (RT-PCR) (Negative) Discharge Plan Discharge Clinical Impression: COPD exacerbation Patient Disposition: Admitted As Inpatient
[2024-06-25 21:18] LABS: MANUAL DIFF FLAG NO
[2024-06-25] MEDS: cefTRIAXone sodium 2 GM VIAL IVPUSH (21:23)
[2024-06-25] MEDS: methylPREDNISolone Sod Succ 125 MG/2 ML VIAL IVPUSH (21:23)
[2024-06-25] MEDS: Magnesium Sulfate/H2O 2 GM/50 ML PIGGYBACK IV (21:23)
[2024-06-25] MEDS: SODIUM CHLORIDE 2349 ML IV (21:24)
[2024-06-25 21:25] VITALS: PULSE 141; RESP 31; O2SAT 99
[2024-06-25 21:28] LABS: Basophils Absolute Auto 0.1 X10*3/uL (0.0-0.2); Basophils Percent Auto 0.5 % (0-2); Eosinophils Absolute Auto 0.2 X10*3/uL (0.0-0.4); Hematocrit 40.7 % (37.0-47.0); Hemoglobin 12.1 g/dl (12.0-16.0); Imm Gran Abs Auto 0.07 X10*3/uL (0.00-0.03); Imm Gran Pct Auto 0.4 % (0.0-0.4); Lymphocytes Absolute Auto 4.2 X10*3/uL (1.2-4.9); Lymphocytes Percent Auto 25.7 % (20-40); Mean Corpuscular HGB Conc 29.7 g/dl (31.0-35.0); Mean Corpuscular Hemoglobin 23.1 pg (27.0-33.0); Mean Corpuscular Volume 77.7 fL (80.0-98.0); Mean Platelet Volume 9.2 fL (9.4-12.3); Monocytes Absolute Auto 1.3 X10*3/uL (0.1-1.2); Monocytes Percent Auto 7.6 % (2-11); Neutrophils Absolute Auto 10.6 x10*3/uL (2.0-8.3); Neutrophils Percent Auto 64.8 % (45-73); Platelet Count 443 X10*3/uL (160-400); Red Blood Count 5.24 X10*6/uL (4.20-5.50); Red Cell Distribution Width 18.3 % (11.0-16.0); White Blood Count 16.4 X10*3/uL (4.8-10.8)
[2024-06-25] MEDS: levalbuterol HCL 1.25 MG/3 ML VIAL.NEB 5 MG INHALE (21:28)
[2024-06-25 21:31] LABS: VBG Base Excess 5.1 mmol/L; VBG HCO3 32 mmol/L (22-26); VBG pCO2 55 mmHg; VBG pH 7.36 (7.32-7.43); VBG pO2 53 mmHg
[2024-06-25 21:32] LABS: Venous Blood Gas Refer to POC result
[2024-06-25 21:44] LABS: Anion Gap 17 (12-20); Blood Urea Nitrogen 10 mg/dL (9-16); Calcium 8.9 mg/dL (8.4-10.2); Carbon Dioxide 27 mmol/L (22-29); Chloride 103 mmol/L (96-108); Creatinine Clr Calc Pharmacy 73.7; Estimated Glomerular Filt Rate > 60; Glucose Random 123 mg/dL (60-115); Magnesium 1.5 mg/dL (1.6-2.6); Potassium 3.8 mmol/L (3.3-5.1); Sodium 143 mmol/L (135-145)
[2024-06-25 21:45] LABS: Lactic Acid 2.5 mmol/L (0.5-2.0)
[2024-06-25 21:47] LABS: Troponin-I High Sensitivity 18.8 ng/L (<3.5-17.0)
[2024-06-25 21:59] LABS: Influenza A PCR NEGATIVE (Negative); Influenza B PCR NEGATIVE (Negative); Resp Syncy Virus RNA Qual PCR NEGATIVE (Negative); SARS COV2 PCR INHOUSE NEGATIVE (Negative)
[2024-06-25 22:21] LABS: B Type Natriuretic Peptide 81 pg/mL (<100)
[2024-06-25 22:34] LABS: INTERNATIONAL NORM RATIO 1.1 (0.9-1.1); Prothrombin Time 12.4 SEC (10.9-12.4)
[2024-06-25 22:36] VITALS: RESP 18; O2SAT 97
[2024-06-25] MEDS: levoFLOXacin/D5W 750 MG/150 ML PIGGYBACK 100 MG IV (22:56)
[2024-06-25 22:57] VITALS: BP 118/57; PULSE 108; RESP 19; O2SAT 87
[2024-06-25 23:16] LABS: Reflex Lactate? Lactic Acid Added
--- NOTE | 2024-06-25 23:26 | P.HPHOSP_ITS ---
History of Present Illness Date of Service: 06/25/24 Chief Complaint: Dyspnea, Wheezing, SOB A 54 years old lady with PMH of COPD-asthma overlap syndrome, HENRY/OHS on nocturnal BiPAP, DMII, HTN, GERD, active tobacco use disorder among others who presents to ED with worsening dyspnea and wheezing last 2 days. The patient had Covid 2 weeks ago while in [place] requiring hospital admission according to her. she did not improve back to her normal self since then and for the last 2 days she has been complaining of wheezing, coughing, SOB and dyspnea with minimal exertion with no reported improvement on her home Nebulizer. In ED she was placed on BiPAP for respiratory distress with significant improvement. still hypoxic on 3L in late 80s though. No chest pain, palpitations, nausea, vomiting, diarrhea or urinary symptoms. blood work showed lactic acidosis and elevated white blood cells. Will be admitted for further work up and management. Review of Systems 2 Review of Systems: No fever, chills or weakness No chest pain, palpitation having shortness of breath and coughing No abdominal pain, nausea or vomiting No urinary symptoms PMFSH Medical History Chronic lung disease Hypoxic respiratory failure Nocturnal hypoxemia HENRY (obstructive sleep apnea) COPD (chronic obstructive pulmonary disease) Diabetes mellitus COPD exacerbation Crack cocaine use Hyperkalemia Metabolic acidosis Leukocytosis Chest discomfort Chronic renal failure, stage 2 (mild) SOB (shortness of breath) Asthma Smoker Rotator cuff tendonitis GERD (gastroesophageal reflux disease) Chronic idiopathic constipation Bustos's esophagus Depression High triglycerides Gastroparesis Carpal tunnel syndrome of right wrist Nausea & vomiting Hernia Acute and chronic respiratory failure, unspecified whether with hypoxia or hypercapnia HTN (hypertension) Obesity (BMI 30-39.9) Knee pain, bilateral Family History Father Heart disease HENRY (obstructive sleep apnea) Family history of breast cancer Mother Asthma Emphysema, unspecified Bronchitis Smoker Alcoholism Bone marrow disease Maternal Grandmother Diabetes Surgical History History of cholecystectomy (~1988) History of carpal tunnel release Hx of tubal ligation History of pubovaginal sling (~2015) History of umbilical hernia repair (~2001) Hx of section History of open reduction and internal fixation (ORIF) procedure History of esophagogastroduodenoscopy (EGD) Social History Household Members: Other Household Members Other:: sister Housing: House Are you a primary care attendant to a significant other at home: No Do you presently have visiting nurse or other home services: No Unable to assess alcohol history related to: Unknown Alcohol intake: former Comment: Sleeping Patient Tobacco Use Status: Current everyday Tobacco user Tobacco use type: Cigarette Cigarette Packs Per Day: 1 Cigarettes Per Day: 20.0 Years Smoked: 48 e-Cigarette/Vaping Use: Never Used Second Hand Smoke Exposure: No Substance Use Type: Crack/Cocaine Advance Directives: Yes Advance Directives on File: Yes Advance Directives Date on File: 12/19/23 Do you have a plan to hurt others: No Plan service: No Current occupational status: disabled 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 Meds Allergies Allergy/AdvReac Type Severity Reaction Status Date / Time doxycycline Allergy Severe Swelling Verified 06/25/24 21:42 varenicline [From CHANTIX] Allergy Severe ANAPHYLAXIS Verified 06/25/24 21:42 azithromycin Allergy Intermediate Rash Verified 06/25/24 21:42 barium sulfate Allergy Intermediate angioedema Verified 06/25/24 21:42 cetirizine Allergy Mild Rash Verified 06/25/24 21:42 famotidine Allergy Mild Rash Verified 06/25/24 21:42 linaclotide [Linzess] Allergy Mild Rash Verified 06/25/24 21:42 Home Medications ?Medication ?Instructions ?Recorded ?Confirmed ?Last Taken ?Type dexlansoprazole 60 mg 60 mg PO DAILY@0630 12/16/23 05/13/24 05/04/24 History capsule,biphase delayed release (Dexilant) nicotine 21 mg/24 hr daily 1 patch transdermal DAILY PRN 04/05/24 05/13/24 05/04/24 History transdermal patch Nicotine Cravings Physical Exam 2 Vital Signs and Narrative: Vital Signs: Last Vital Signs Temp 97.6 F 06/25/24 21:00 Pulse 108 H 06/25/24 22:57 Resp 19 06/25/24 22:57 BP 118/57 L 12/26/24 22:57 Pulse Ox 87 L 06/25/24 22:57 O2 Del Method Nasal Cannula 06/25/24 22:57 O2 Flow Rate 3 06/25/24 22:57 BMI result Body Mass Index 34.9 Const: Other: onstitutional : Awake, interactive, in mild distress Neck : Normal inspection, Supple Cardiovascular : RRR, no JVP, no lower extremity edema Respiratory : fairly decreased bilateral air entry, no crackles, scattered expiratory wheezes , on BiPaP Gastrointestinal: soft, lax, Normal bowel sounds, Non tender Skin : Warm, Dry Neurological : Alert & oriented x3, No focal deficit Results Labs 06/25/24 21:06 06/25/24 21:06 Labs: Laboratory Results - last 24 hr 06/25/24 06/25/24 06/25/24 21:06 21:09 21:19 MCV 77.7 L MCH 23.1 L MCHC 29.7 L RDW 18.3 H Plt Count 443 H MPV 9.2 L Immature Gran % (Auto) 0.4 Neut % (Auto) 64.8 Lymph % (Auto) 25.7 [place] % (Auto) 7.6 Eos % (Auto) 1.0 Baso % (Auto) 0.5 Lymph # (Auto) 4.2 [place] # (Auto) 1.3 H Eos # (Auto) 0.2 Baso # (Auto) 0.1 Abs Immat Gran (auto) 0.07 H Absolute Neuts (auto) 10.6 H Absolute Nucleated RBC 0.000 Nucleated RBC % (auto) 0.0 PT INR VBG pH 7.36 VBG pCO2 55 VBG pO2 53 VBG HCO3 32 H VBG O2 Saturation 83.0 VBG Base Excess 5.1 Anion Gap 17 Estim Creat Clear Calc 73.7 Estimated GFR > 60 Random Glucose 123 H Lactic Acid 2.5 H* Calcium 8.9 Magnesium 1.5 L Troponin I High Sens 18.8 H B-Natriuretic Peptide 81 Influenza Type A (PCR) NEGATIVE Influenza Type B (PCR) NEGATIVE RSV RNA Qual (PCR) NEGATIVE SARS-CoV-2 RNA (RT-PCR) NEGATIVE 06/25/24 22:05 MCV MCH MCHC RDW Plt Count MPV Immature Gran % (Auto) Neut % (Auto) Lymph % (Auto) [place] % (Auto) Eos % (Auto) Baso % (Auto) Lymph # (Auto) [place] # (Auto) Eos # (Auto) Baso # (Auto) Abs Immat Gran (auto) Absolute Neuts (auto) Absolute Nucleated RBC Nucleated RBC % (auto) PT 12.4 INR 1.1 VBG pH VBG pCO2 VBG pO2 VBG HCO3 VBG O2 Saturation VBG Base Excess Anion Gap Estim Creat Clear Calc Estimated GFR Random Glucose Lactic Acid Calcium Magnesium Troponin I High Sens B-Natriuretic Peptide Influenza Type A (PCR) Influenza Type B (PCR) RSV RNA Qual (PCR) SARS-CoV-2 RNA (RT-PCR) Imaging Radiologist's Impressions: Impressions Chest X-Ray 06/25/24 21:02 IMPRESSION: No focal infiltrate or congestive heart failure is seen. Electronically signed by: Joe Galaviz MD 06/25/2024 10:00 PM [facility] [place] Assessment and Plan (1) COPD exacerbation: Status: Acute (2) Acute exacerbation of chronic obstructive airways disease: Status: Acute (3) Acute on chronic respiratory failure with hypoxemia: Status: Acute Plan A 54 years old lady with PMH of COPD-asthma overlap syndrome, HENRY/OHS on nocturnal BiPAP, DMII, HTN, GERD, active tobacco use disorder among others who presents to ED with worsening dyspnea and wheezing last 2 days. Acute hypoxemic respiratory failure 2/2 COPD exacerbation with underlying HENRY not septic CXR not reporting any acute findings IV steroids Xopenex nebs for tachycardia Home inhalers BiPAP bedtime and with naps Sinus tachycardia with PAcs no evidence of Afib monitor on Telemetry rate better 90s-100s now Lactic acidosis Likely due to hypoxia and nebulizers not due to sepsis vag-xbxeopn-bjicxhuum type 2 diabetes POC glucose, diabetic diet Humalog on sliding scale hold p.o. antihyperglycemics GERD/Bustos's esophagus continue famotidine hypertension continue losartan, Lasix dvt prophylaxis lovenox Pending Med rec The patient will need 2 overnight hospital stay for copd exacerbation with acute hypoxemic respiratory failure for treatment with scheduled nebulizers, and titration of supplemental O2 with close monitoring of respiratory status to monitor for and prevent decompensation Quality Stroke Does the patient have a stroke diagnosis?: No VTE Prior VTE?: No VTE Risk Level:: Medical - moderate - high VTE Device Contraindication: Treatment Not Indicated VTE Drug Contraindication: N/A - Med Ordered
[2024-06-25 23:46] VITALS: BP 108/63; PULSE 108; RESP 19; O2SAT 94
[2024-06-26] VITALS (16 sets, daily range): BP systolic 99–159; BP diastolic 44–91; PULSE 72–120; RESP 15–22; TEMP 36–37; O2SAT 94–98; BMI 33.9
[2024-06-26] MEDS: levalbuterol HCL 2.5 MG, Ipratropium Bromide 0.5 MG INHALE ×5 (00:28→19:29)
--- NOTE | 2024-06-26 00:34 | PC.NURSE ---
late entry pt biba from home reports past 2 days has been having worsening sob/wheezing without improvement with duonebs. was not hypoxic for ems but labored breathing/tachypneic, placed on cpap via ems and given duoneb. on arrival switched to bipap by RT. lung sounds diminished/wheezing. Macie HEATH at bedside. bilat iv established. ekg and labs obtained. vitals as documented. pt is axox4 able to speak clear 3-4 word sentences. pt medicated per aug. after some time on bipap, removed and placed on baseline 3L NC by RT, pt tolerated well and sats remain in 90s%. currently pt is speaking full clear sentences, resp improved, tolerated po intake. awaiting bed assignment. call ott within reach.
[2024-06-26 00:38] LABS: ~Lactic Acid-LAB USE ONLY 1.6 mmol/L (0.5-2.0)
[2024-06-26] MEDS: Furosemide 20 MG/2 ML VIAL IVPUSH (01:25)
[2024-06-26] MEDS: Enoxaparin Sodium 40 MG/0.4 ML SYRINGE SUBCUT (01:25)
[2024-06-26] MEDS: guaiFENesin LA 600 MG TAB.ER.12H PO ×3 (01:27→21:00)
[2024-06-26] MEDS: 0.9 % Sodium Chloride Flush 3 ML SYRINGE IVFLUSH ×4 (01:27→23:57)
[2024-06-26 04:42] LABS: Alanine Aminotransferase 7 U/L (0-31); Albumin Level 3.6 g/dL (3.5-5.0); Alkaline Phosphatase 81 U/L (39-117); Anion Gap 15 (12-20); Aspartate Amino Transferase 14 U/L (5-31); Bilirubin Total 0.1 mg/dL (0.0-1.0); Blood Urea Nitrogen 12 mg/dL (9-16); Calcium 7.9 mg/dL (8.4-10.2); Carbon Dioxide 26 mmol/L (22-29); Chloride 101 mmol/L (96-108); Creatinine Clr Calc Pharmacy 71.8; Estimated Glomerular Filt Rate > 60; Glucose Random 317 mg/dL (60-115); Potassium 4.3 mmol/L (3.3-5.1); Sodium 138 mmol/L (135-145); Total Protein 6.4 g/dL (6.5-8.0)
[2024-06-26 08:03] LABS: Glucose, Whole Blood 279 mg/dL (60-115)
[2024-06-26] MEDS: Insulin Lispro 100 UNIT/ML 3 ML VIAL SUBCUT ×4 (08:11→21:01)
[2024-06-26 09:14] LABS: Glucose, Whole Blood 309 mg/dL (60-115)
[2024-06-26] MEDS: methylPREDNISolone Sod Succ 40 MG/ML VIAL IVPUSH ×2 (09:52→21:01)
--- NOTE | 2024-06-26 10:48 | HO.PM.IMPN ---
Subjective Subjective Date of Service: 06/26/24 Interval History: seen and examined feels short of breath and wheezy still reports was in a [place] for [place] for 9 [place], states she was on the ventilator Review of Systems Negative except HPI/interval history. Physical Exam Vital Signs: Vital Signs: Last Vital Signs Temp 97.2 F 06/26/24 08:00 Pulse 80 06/26/24 08:33 Resp 18 06/26/24 08:33 BP 140/79 H 06/26/24 08:00 Pulse Ox 94 06/26/24 08:00 O2 Del Method Nasal Cannula 06/26/24 08:00 O2 Flow Rate 2 06/26/24 08:00 BMI result Body Mass Index 33.9 Const: Other: General - no acute distress, appears comfortable Cardiovascular - regular rate and rhythm, S1-S2 Lungs - diffuse wheezing and rhonchi Abdomen - soft, nontender, no rebound or guarding Extremities - no edema bilaterally Neuro - awake and alert, no focal deficits Objective Data Active Medications Acetaminophen (Acetaminophen 325 Mg Tablet) 650 mg PO Q6H PRN PRN Reason: Pain, Mild 1-3,fever,headache Albuterol Sulfate (Albuterol Sulfate (0.083%) 2.5 Mg/3 Ml Vial.Neb) 2.5 mg INHALE RQ4H PRN PRN Reason: Shortness of Breath/Wheezing Benzonatate (Benzonatate 100 Mg Capsule) 100 mg PO TID PRN PRN Reason: Cough Calcium Carbonate (Calcium Carbonate 750 Mg Tab.Chew) 750 mg PO Q4H PRN PRN Reason: Heartburn Levalbuterol HCl 2.5 mg/ (Ipratropium Maceo 0.5 mg) 0 mg INHALE RQ4H WHILE AWAKE [facility] Last Admin: 06/26/24 08:29 Dose: 1 dose Documented By: REHANA Enoxaparin Sodium (Enoxaparin Sodium 40 Mg/0.4 Ml Syringe) 40 mg SUBCUT Q24H [facility] Last Admin: 06/26/24 01:25 Dose: 40 mg Documented By: DARWIN Guaifenesin (Guaifenesin La 600 Mg Tab.Er.12h) 600 mg PO BID [facility] Last Admin: 06/26/24 09:52 Dose: 600 mg Documented By: LARRY Insulin Human Lispro (Insulin Lispro 100 Unit/Ml 3 Ml Vial) 0 unit SUBCUT QIDACHS [facility]; Protocol Last Admin: 06/26/24 08:11 Dose: 4 unit Documented By: KENNY Magnesium Hydroxide (Milk Of Magnesia 30 Ml Oral.Susp) 30 ml PO DAILY PRN PRN Reason: Constipation Melatonin (Melatonin 3 Mg Tablet) 6 mg PO BEDTIME PRN PRN Reason: Insomnia Methylprednisolone Sodium Succinate (Methylprednisolone Sod Succ 40 Mg/Ml Vial) 40 mg IVPUSH Q12H [facility] Last Admin: 06/26/24 09:52 Dose: 40 mg Documented By: LARRY Ondansetron HCl (Ondansetron Hcl 4 Mg/2 Ml Vial) 4 mg IVPUSH Q8H PRN PRN Reason: Nausea and Vomiting Sodium Chloride (0.9 % Sodium Chloride Flush 3 Ml Syringe) 3 ml IVFLUSH QSHIFT [facility] Last Admin: 06/26/24 09:52 Dose: 3 ml Documented By: LARRY Labs 06/25/24 21:06 06/26/24 04:09 Labs: Laboratory Results - last 24 hr 06/25/24 06/25/24 06/25/24 21:06 21:09 21:19 MCV 77.7 L MCH 23.1 L MCHC 29.7 L RDW 18.3 H Plt Count 443 H MPV 9.2 L Immature Gran % (Auto) 0.4 Neut % (Auto) 64.8 Lymph % (Auto) 25.7 [place] % (Auto) 7.6 Eos % (Auto) 1.0 Baso % (Auto) 0.5 Lymph # (Auto) 4.2 [place] # (Auto) 1.3 H Eos # (Auto) 0.2 Baso # (Auto) 0.1 Abs Immat Gran (auto) 0.07 H Absolute Neuts (auto) 10.6 H Absolute Nucleated RBC 0.000 Nucleated RBC % (auto) 0.0 PT INR VBG pH 7.36 VBG pCO2 55 VBG pO2 53 VBG HCO3 32 H VBG O2 Saturation 83.0 VBG Base Excess 5.1 Anion Gap 17 Estim Creat Clear Calc 73.7 Estimated GFR > 60 POC Glucose Random Glucose 123 H Lactic Acid 2.5 H* Lactic Acid F/U @ 2Hr Calcium 8.9 Magnesium 1.5 L Total Bilirubin AST ALT Alkaline Phosphatase Troponin I High Sens 18.8 H B-Natriuretic Peptide 81 Total Protein Albumin Influenza Type A (PCR) NEGATIVE Influenza Type B (PCR) NEGATIVE RSV RNA Qual (PCR) NEGATIVE SARS-CoV-2 RNA (RT-PCR) NEGATIVE 06/25/24 06/25/24 06/26/24 22:05 23:55 04:09 MCV MCH MCHC RDW Plt Count MPV Immature Gran % (Auto) Neut % (Auto) Lymph % (Auto) [place] % (Auto) Eos % (Auto) Baso % (Auto) Lymph # (Auto) [place] # (Auto) Eos # (Auto) Baso # (Auto) Abs Immat Gran (auto) Absolute Neuts (auto) Absolute Nucleated RBC Nucleated RBC % (auto) PT 12.4 INR 1.1 VBG pH VBG pCO2 VBG pO2 VBG HCO3 VBG O2 Saturation VBG Base Excess Anion Gap 15 Estim Creat Clear Calc 71.8 Estimated GFR > 60 POC Glucose Random Glucose 317 H Lactic Acid Lactic Acid F/U @ 2Hr 1.6 Calcium 7.9 L D Magnesium Total Bilirubin 0.1 AST 14 ALT 7 Alkaline Phosphatase 81 Troponin I High Sens B-Natriuretic Peptide Total Protein 6.4 L Albumin 3.6 Influenza Type A (PCR) Influenza Type B (PCR) RSV RNA Qual (PCR) SARS-CoV-2 RNA (RT-PCR) 06/26/24 06/26/24 07:59 09:04 MCV MCH MCHC RDW Plt Count MPV Immature Gran % (Auto) Neut % (Auto) Lymph % (Auto) [place] % (Auto) Eos % (Auto) Baso % (Auto) Lymph # (Auto) [place] # (Auto) Eos # (Auto) Baso # (Auto) Abs Immat Gran (auto) Absolute Neuts (auto) Absolute Nucleated RBC Nucleated RBC % (auto) PT INR VBG pH VBG pCO2 VBG pO2 VBG HCO3 VBG O2 Saturation VBG Base Excess Anion Gap Estim Creat Clear Calc Estimated GFR POC Glucose 279 H 309 H Random Glucose Lactic Acid Lactic Acid F/U @ 2Hr Calcium Magnesium Total Bilirubin AST ALT Alkaline Phosphatase Troponin I High Sens B-Natriuretic Peptide Total Protein Albumin Influenza Type A (PCR) Influenza Type B (PCR) RSV RNA Qual (PCR) SARS-CoV-2 RNA (RT-PCR) Assessment and Plan (1) Acute on chronic respiratory failure with hypoxemia: Status: Acute Plan A 54 years old lady with PMH of COPD-asthma overlap syndrome, HENRY/OHS on nocturnal BiPAP, DMII, HTN, GERD, active tobacco use disorder among others who presents to ED with worsening dyspnea and wheezing last 2 days. Acute hypoxemic respiratory failure 2/2 COPD exacerbation with underlying HENRY slowly improving continue steroids and updrafts wean o2 as tolerated Sinus tachycardia with PAcs no evidence of Afib monitor on Telemetry rate better 90s-100s now Lactic acidosis Likely due to hypoxia and nebulizers not due to sepsis [id number] type 2 diabetes POC glucose, diabetic diet Humalog on sliding scale hold p.o. antihyperglycemics GERD/Bustos's esophagus continue famotidine hypertension continue losartan, Lasix dvt prophylaxis lovenox continue baseline meds as appropriate, once med rec completed reason for on going hospitalization: pt still with diffuse wheezing and o2 requirements; not improved for transition to oral and discharge home Quality Stroke Does the patient have a stroke diagnosis?: No VTE Prior VTE?: No VTE Risk Level:: Medical - moderate - high VTE Device Contraindication: Treatment Not Indicated VTE Drug Contraindication: N/A - Med Ordered
--- NOTE | 2024-06-26 10:56 | MHC.CM.PN ---
CM met with Patient at bedside. Patient lives in an apartment with her Sister/Lexy, she uses a walker & w/c, has a SALES OFFICE COORDINATOR & home O2/Cpap through [employer], and has had [facility] in the past. Home/resume said services is the goal and CM has initiated and will follow for dc planning. PCP is Dr. Joe Hale and a friend will transport to home.
[2024-06-26 11:31] LABS: Glucose, Whole Blood 331 mg/dL (60-115)
--- NOTE | 2024-06-26 12:03 | PHA.MEDREC ---
Pharmacy Consult ? Medication Reconciliation Pharmacy has completed the medication reconciliation. Spoke to patient and confirmed medication list. Patient said she takes the calcium-vitamin D3 only once a day, she takes gabapentin 800 mg qid on scheduled, the dose of losartan is 25 mg daily and tizanidine 4 mg q12h as needed. Last dose of medication was yesterday 06/25/24 morning.
[2024-06-26] MEDS: Sertraline HCL 100 MG TABLET PO (13:26)
[2024-06-26] MEDS: Gabapentin 400 MG CAPSULE 800 MG PO ×3 (13:26→21:00)
[2024-06-26] MEDS: Losartan Potassium 25 MG TABLET PO (13:26)
[2024-06-26] MEDS: Theophylline Anhydrous ER 400 MG TAB.ER.24H PO ×2 (14:10→21:00)
[2024-06-26 16:32] LABS: Glucose, Whole Blood 214 mg/dL (60-115)
[2024-06-26 20:30] LABS: Glucose, Whole Blood 223 mg/dL (60-115)
[2024-06-26] MEDS: Atorvastatin Calcium 20 MG TABLET PO (21:00)
[2024-06-27] MEDS: Enoxaparin Sodium 40 MG/0.4 ML SYRINGE SUBCUT (01:05)
[2024-06-27 03:22] VITALS: BP 135/69; PULSE 70; RESP 16; TEMP 36.4; O2SAT 98
--- NOTE | 2024-06-27 04:54 | PC.NURSE ---
Assumed care of patient at 23:00. Report given by SANDRA Fernandes.
[2024-06-27] MEDS: Omeprazole 40 MG CAPSULE.DR PO (05:57)
[2024-06-27 05:58] VITALS: PULSE 99; RESP 20; O2SAT 94
[2024-06-27] MEDS: Benzonatate 100 MG CAPSULE PO (06:23)
[2024-06-27 06:59] VITALS: BP 127/65; PULSE 96; RESP 20; TEMP 36.6; O2SAT 98
[2024-06-27 07:09] LABS: Glucose, Whole Blood 217 mg/dL (60-115)
[2024-06-27] MEDS: levalbuterol HCL 2.5 MG, Ipratropium Bromide 0.5 MG INHALE (07:57)
[2024-06-27 08:02] VITALS: PULSE 58; RESP 17; O2SAT 99
[2024-06-27] MEDS: 0.9 % Sodium Chloride Flush 3 ML SYRINGE IVFLUSH (09:11)
[2024-06-27] MEDS: Gabapentin 400 MG CAPSULE 800 MG PO (09:11)
[2024-06-27] MEDS: Calcium + Vitamin D 250 MG TABLET 500 MG PO (09:11)
[2024-06-27] MEDS: Aspirin Enteric Coated 81 MG TABLET.DR PO (09:11)
[2024-06-27] MEDS: Theophylline Anhydrous ER 400 MG TAB.ER.24H PO (09:11)
[2024-06-27] MEDS: guaiFENesin LA 600 MG TAB.ER.12H PO (09:11)
[2024-06-27 09:12] VITALS: BP 127/65
[2024-06-27] MEDS: methylPREDNISolone Sod Succ 40 MG/ML VIAL IVPUSH (09:12)
[2024-06-27] MEDS: Losartan Potassium 25 MG TABLET PO (09:12)
[2024-06-27] MEDS: Insulin Lispro 100 UNIT/ML 3 ML VIAL SUBCUT (09:12)
[2024-06-27] MEDS: Furosemide 20 MG TABLET PO (09:12)
[2024-06-27] MEDS: Sertraline HCL 100 MG TABLET PO (09:12)
--- NOTE | 2024-06-27 10:53 | P.DS_ITS ---
DS: Providers Provider Date of Service: 06/27/24 Date of admission: 06/25/24 23:34 Date of discharge: 06/27/24 [facility]: Diagnosis Discharge Diagnosis (1) Acute on chronic respiratory failure with hypoxemia: Status: Acute (2) COPD exacerbation: Status: Acute (3) Acute lactic acidosis: Status: Acute DS: Summary Hospital Course Hospital Course: Admission note HPI A 54 years old lady with PMH of COPD-asthma overlap syndrome, HENRY/OHS on nocturnal BiPAP, DMII, HTN, GERD, active tobacco use disorder among others who presents to ED with worsening dyspnea and wheezing last 2 days. The patient had Covid 2 weeks ago while in [place] requiring hospital admission according to her. she did not improve back to her normal self since then and for the last 2 days she has been complaining of wheezing, coughing, SOB and dyspnea with minimal exertion with no reported improvement on her home Nebulizer. In ED she was placed on BiPAP for respiratory distress with significant improvement. still hypoxic on 3L in late 80s though. No chest pain, palpitations, nausea, vomiting, diarrhea or urinary symptoms. blood work showed lactic acidosis and elevated white blood cells. Will be admitted for further work up and management. Hospital course # Acute hypoxemic respiratory failure 2/2 COPD exacerbation with underlying HENRY Improved with treated with IV steroids and scheduled and PRN Nebulizer and night time BiPAP with improvement over the course of hospital stay. weaned down O2 supplement to Room air with O2 sat in 90s. She is at 2L her home baseline. # Sinus tachycardia with PAcs monitored on Telemetry and resolved while inpatient. # Acute Lactic acidosis Likely due to hypoxia and nebulizers not due to sepsis Discharge plan Continue Prednisone as prescribed Use Ipratropium and Albuterol nebulizer 3-4 times a day for the next 3 days then as needed Cough medications as needed Time Attestation Discharge Coordination Time (in mins): 35 Quality: Safe Use of Opioids Does Pt have an Active Cancer Diagnosis on the Problem List?: No Quality: Stroke Does the patient have a stroke diagnosis?: No Physical Exam Vital Signs: Vital Signs: Last Vital Signs Temp 97.9 F 06/27/24 06:59 Pulse 58 06/27/24 08:02 Resp 17 06/27/24 08:02 BP 127/65 06/27/24 09:12 Pulse Ox 98 06/27/24 06:59 O2 Del Method Nasal Cannula 06/27/24 06:59 O2 Flow Rate 3 06/27/24 06:59 BMI result Body Mass Index 33.9 Const: Other: onstitutional : Awake, interactive, not in distress Neck : Normal inspection, Supple Cardiovascular : RRR, no JVP, no lower extremity edema Respiratory : improved bilateral air entry, no crackles, no wheezes , on RA Gastrointestinal: soft, lax, Normal bowel sounds, Non tender Skin : Warm, Dry Neurological : Alert & oriented x3, No focal deficit DS: Data Data Completed and Pending Completed studies during hospitalization [Text1]: Procedures Assistance with Respiratory Ventilation, Less than 24 Consecutive Hours, Continuous Positive Airway Pressure (04/17/24) Insertion of Endotracheal Airway into Trachea, Via Natural or Artificial Opening (11/03/20) Insertion of Infusion Device into Superior Vena Cava, Percutaneous Approach (11/03/20) Respiratory Ventilation, Less than 24 Consecutive Hours (11/03/20) Labs on day of discharge: Laboratory Results - last 24 hr 06/26/24 06/26/24 06/26/24 11:21 16:24 20:23 POC Glucose 331 H 214 H 223 H 06/27/24 07:04 POC Glucose 217 H Preliminary micro results at discharge 06/25/24 21:09 Blood Culture - Preliminary Blood - Venous No growth after 24 hours. 06/25/24 21:06 Blood Culture - Preliminary Blood - Venous No growth after 24 hours. Discharge Plan Discharge Anticipated Discharge Date/Time: 06/27/24 10:40 Patient Disposition: Home, Self-Care Discharge Diagnosis: COPD exacerbation Referrals: Joe Hale, PLASTICS PRODUCTION MACHINE OPERATOR-BC [Primary Care Provider] - 1 Week Discharge Medications: New guaifenesin [Mucinex] 600 mg Tablet Extended Release 12hr 600 mg PO BID Qty: 20 0RF benzonatate 100 mg Capsule 100 mg PO TID PRN (Reason: Cough) Qty: 20 0RF prednisone 20 mg tablet 40 mg PO DAILY Qty: 10 0RF albuterol sulfate 2.5 mg /3 mL (0.083 %) Solution For Nebulization 2.5 mg inhalation RQ4H PRN (Reason: Shortness Of Breath/Wheezing) Qty: 150 0RF Continued (DME) lancets [FreeStyle Lancets] 28 gauge misc See Rx Instructions .ROUTE .MEDSUPPLY Qty: 100 1RF Rx Instructions: Use to check blood sugar daily or if symptomatic hypo/hypergylcemia (DME) 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 meter [FreeStyle Lite Meter] Kit See Rx Instructions .ROUTE .MEDSUPPLY Qty: 1 0RF Rx Instructions: Use to check blood sugar daily or if symptomatic for hypo/hyperglycemia (DME) FreeStyle Lite Strips Strip See Rx Instructions .ROUTE .MEDSUPPLY Qty: 100 1RF Rx Instructions: Use to check blood sugar daily or if symptomatic hypo/hypergylcemia furosemide 20 mg tablet 20 mg PO DAILY Qty: 90 3RF acetaminophen 650 mg tablet extended release 650 mg PO Q12H PRN (Reason: pain) 30 Days Qty: 60 0RF aspirin 81 mg tablet,delayed release (DR/EC) 81 mg PO DAILY 90 Days Qty: 90 1RF theophylline 400 mg tablet extended release 24 hr 400 mg PO BID 90 Days Qty: 180 4RF sertraline 100 mg tablet 100 mg PO DAILY Qty: 90 0RF glipizide 5 mg tablet 5 mg PO DAILY Qty: 90 0RF albuterol sulfate [Ventolin HFA] 90 mcg/actuation HFA aerosol inhaler 2 puff inhalation Q6H PRN (Reason: for wheezing) Qty: 1 6RF Stiolto Respimat 2.5-2.5 mcg/actuation mist 2 puff INHALATION DAILY Qty: 4 6RF ibuprofen 800 mg tablet 800 mg PO BID PRN (Reason: pain) Qty: 60 0RF Rx Instructions: please use sparingly due to diabetes tizanidine 4 mg tablet 4 mg PO Q12H PRN (Reason: muscle spasm) 30 Days Qty: 60 0RF Rx Instructions: do not take concurrently with famotidine nicotine 21 mg/24 hr Patch 24 Hour 1 patch TRANSDERMAL DAILY PRN (Reason: Nicotine Cravings) gabapentin 800 mg tablet 800 mg PO QID calcium carbonate-vitamin D3 500 mg-10 mcg (400 unit) tablet 1 tab PO DAILY ipratropium bromide 0.02 % solution 2.5 ml inhalation Q6H PRN (Reason: Wheezing) Qty: 150 0RF dexlansoprazole [Dexilant] 60 mg capsule,biphase delayed releas 60 mg PO DAILY@0630 losartan 25 mg tablet 25 mg PO DAILY 90 Days Qty: 90 0RF atorvastatin 20 mg tablet 20 mg PO BEDTIME 90 Days Qty: 90 0RF Discharge Orders: Discharge Order (Routine); Ordered 06/27/24 Ordered By: Niru Boyd Diet: Diabetic diet Activity on Discharge: As tolerated Stand Alone Forms: Patient Portal Discharge page Print Language: Divehi Care Plan Goals: Continue Prednisone as prescribed Use Ipratropium and Albuterol nebulizer 3-4 times a day for the next 3 days then as needed Cough medications as needed Health Concerns: COPD exacerbation Post Covid Plan of Treatment: Steroids Nebulizers Assessment: as above
--- NOTE | 2024-06-27 11:00 | MHC.CM.PN ---
Pt has been medically cleared for DC, she will go home via private transport and plan is self care.
[2024-06-27 11:29] LABS: Glucose, Whole Blood 154 mg/dL (60-115)
== END 2024-06-27 11:51 | disposition home or self-care (01) | DRG 140 ==
LOC: HO.ED 21:23 → HO.EDOVER 23:40 → HO.IMC 06-26 07:17
PROVIDERS: Family Medicine; Physician Assistant Medical; Admitting Provider Student in an Organized Health Care Education/Training Program; Emergency Provider Emergency Medicine; PCP Nurse Practitioner Family; Visit Provider Student in an Organized Health Care Education/Training Program
DX: J44.1 Chronic obstructive pulmonary disease with (acute) exacerbation (principal); J96.21 Acute and chronic respiratory failure with hypoxia; E87.21 Acute metabolic acidosis; I49.1 Atrial premature depolarization; G47.33 Obstructive sleep apnea (adult) (pediatric); F17.210 Nicotine dependence, cigarettes, uncomplicated; K21.9 Gastro-esophageal reflux disease without esophagitis; K22.70 Barrett's esophagus without dysplasia; Z71.6 Tobacco abuse counseling; Z20.822 Contact with and (suspected) exposure to COVID-19; Z79.82 Long term (current) use of aspirin; Z79.84 Long term (current) use of oral hypoglycemic drugs; Z79.899 Other long term (current) drug therapy
CPT/HCPCS: 0241U; 36415; 71045; 80048; 80053; 82803; 82947; 83605; 83735; 83880; 84484; 85025; 85610; 87040; 93005; 94640; 94660; 99285; J0696; J1650; J1940; J1956; J2919; J3475

== ENCOUNTER → 2024-06-25 21:02 | Outpatient (BNV) | payer OTHER, SELFPAY | PROVIDERS: Admitting Provider Student in an Organized Health Care Education/Training Program; Emergency Provider Emergency Medicine; PCP Nurse Practitioner Family; Visit Provider Internal Medicine Cardiovascular Disease | DX: R06.02 Shortness of breath (principal) | CPT/HCPCS: 93010 ==

== ENCOUNTER → 2024-06-25 23:34 | Outpatient (BNV) | payer OTHER, SELFPAY | PROVIDERS: Admitting Provider Student in an Organized Health Care Education/Training Program; Emergency Provider Emergency Medicine; PCP Nurse Practitioner Family; Visit Provider Student in an Organized Health Care Education/Training Program | DX: J44.1 Chronic obstructive pulmonary disease with (acute) exacerbation (principal); J96.21 Acute and chronic respiratory failure with hypoxia; R00.0 Tachycardia, unspecified; E87.21 Acute metabolic acidosis | CPT/HCPCS: 99222; 99232; 99239 ==

== ENCOUNTER 2024-07-13 13:58 | Inpatient (IN) | payer OTHER, SELFPAY ==
[2024-07-13] VITALS (12 sets, daily range): BP systolic 107–130; BP diastolic 57–79; PULSE 55–123; RESP 16–36; TEMP 36.3–36.8; O2SAT 79–100; BMI 31.3
--- NOTE | ~2024-07-13 | XR_ITS ---
EXAMINATION: XR CHEST CLINICAL INFORMATION: dyspnea COMPARISON: Chest 06/25/2024 TECHNIQUE: Frontal view of the chest was obtained. FINDINGS: The lungs are expanded with prominent right infrahilar markings similar to previous study. No acute consolidation seen. Heart size and pulmonary vascularity is normal. No gross bony abnormality seen. XR/XR chest 1V IMPRESSION: No acute process. Prominent right infrahilar markings may represent chronic atelectasis or scarring. Electronically signed by: Sanjeev Cruz MD 07/13/2024 02:48 PM EST
--- NOTE | ~2024-07-13 | CT_ITS ---
CLINICAL HISTORY: upper abd pain, vomiting, distention CT of the abdomen and pelvis utilizing intravenous contrast. Comparison 04/29/2020. Findings: The liver is upper limits of normal in size. Cholecystectomy. There are several adrenal nodules bilaterally the majority of which are similar to previous and presumably adenomas. One of the nodules on the left is mildly increased however this appears to represent an adenoma based on hounsfield units on the previous noncontrast study. There are small nonobstructive renal stones. No hydronephrosis. There is renal scarring more pronounced on the left. The spleen and pancreas are unremarkable. No abdominal aortic aneurysm. No diverticulitis. Normal appendix. No bowel obstruction. Previous ventral and inguinal hernia repairs. There is a small fat containing umbilical hernia. The bladder is mildly distended. Patchy densities in the lower lungs presumably represent mild scarring or atelectasis. 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 Prominent degenerative changes in the spine. Mild bilateral hip DJD. Impression: Normal appendix. No diverticulitis or bowel obstruction. Additional findings as above. This document has been electronically signed by: Iftikhar Bond MD on 07/13/2024 17:28:21
--- NOTE | 2024-07-13 14:01 | ECG_ITS ---
Test Reason : DYSPNEa Blood Pressure : */* mmHG Vent. 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
--- NOTE | 2024-07-13 14:10 | ED_ITS ---
HPI - SOB/Dyspnea General Chief Complaint: Dyspnea Stated Complaint: SOB, 98% ON CPAP, HX OF COPD, ASTHMA Time Seen by Provider: 07/13/24 14:00 Source: patient, EMS and old records reviewed Mode of arrival: EMS Limitations: no limitations History of Present Illness ED Provider: LUIS HPI Narrative: 54 yo female with PMH of COPD/asthma overlap syndrome on 2L NC and intermittent bipap if she needs it during the day/naps/bedtime, active smoker, HENRY, DM2, HTN, GERD, reports no cocaine use recently but does have history has had a dry cough and dyspnea x 2 days. NO n/v/d passing gas and having BMs but states her stomach hurts and is full. She states she has a hard time eating but no vomiting and she thinks it is making her breathing worse. NO sick contacts, no fevers, no chest pain. Increased work of breathing on EMS arrival no hypoxia reported started on CPAP and 125mg solumedrol MD elicited complaint: shortness of breath and cough Pertinent past history: COPD, asthma and diabetes Onset (ago): day(s) (2) Context: other Timing: progressively worsening Severity: moderate Exacerbating factors: lying flat, exertion, coughing and other (eating) Relieving factors: oxygen, rest, bronchodilators and upright position Known history of: COPD and asthma Associated symptoms: abdominal pain Treatment prior to arrival: oxygen, bronchodilator, NIPPV and other (125mg solumedrol) Related Data Home Medications ?Medication ?Instructions ?Recorded ?Confirmed dexlansoprazole 60 mg 60 mg PO DAILY@0630 12/16/23 06/26/24 capsule,biphase delayed release (Dexilant) nicotine 21 mg/24 hr daily 1 patch transdermal DAILY PRN 04/05/24 06/26/24 transdermal patch Nicotine Cravings calcium 500 mg (as 1 tab PO DAILY 06/26/24 06/26/24 carbonate)-vitamin D3 10 mcg (400 unit) tablet Previous Rx's ?Medication ?Instructions ?Recorded lancets 28 gauge (FreeStyle #100 ea 01/20/21 Lancets) 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 meter (FreeStyle #1 ea 03/01/22 Lite Meter kit) blood sugar diagnostic (FreeStyle #100 ea 09/16/22 Lite Strips) furosemide 20 mg tablet 20 mg PO DAILY #90 tabs 12/09/23 aspirin 81 mg tablet,delayed 81 mg PO DAILY 90 days #90 tabs 01/01/24 release theophylline 400 mg 400 mg PO BID 90 days #180 tabs 01/27/24 tablet,extended release 24 hr losartan 25 mg tablet 25 mg PO DAILY 90 days #90 tabs 02/14/24 glipizide 5 mg tablet 5 mg PO DAILY #90 tabs 04/08/24 sertraline 100 mg tablet 100 mg PO DAILY #90 tabs 04/08/24 albuterol sulfate 90 mcg/actuation 2 puff inhalation Q6H PRN for 04/10/24 aerosol inhaler (Ventolin HFA) wheezing #1 ea atorvastatin 20 mg tablet 20 mg PO BEDTIME 90 days #90 tabs 04/23/24 tiotropium 2.5 mcg-olodaterol 2.5 2 puff inhalation DAILY #4 grams 04/28/24 mcg/actuation mist for inhalation (Stiolto Respimat) ibuprofen 800 mg tablet 800 mg PO BID PRN pain #60 tabs 06/11/24 tizanidine 4 mg tablet 4 mg PO Q12H PRN muscle spasm 30 06/11/24 days #60 tabs albuterol sulfate 2.5 mg/3 mL 2.5 mg (3 mL) inhalation RQ4H PRN 06/27/24 (0.083 %) solution for nebulization Shortness Of Breath/Wheezing #150 mL benzonatate 100 mg capsule 100 mg PO TID PRN Cough #20 caps 06/27/24 guaifenesin 600 mg tablet, 600 mg PO BID #20 tabs 06/27/24 extended release 12 hr (Mucinex) ipratropium bromide 0.02 % 2.5 ml inhalation Q6H PRN Wheezing 06/27/24 solution for inhalation #150 mL prednisone 20 mg tablet 40 mg (2 x 20 mg) PO DAILY #10 tabs 06/27/24 acetaminophen 650 mg 650 mg PO Q12H PRN pain 30 days 07/07/24 tablet,extended release #60 tabs gabapentin 800 mg tablet 800 mg PO QID Pain 30 days #120 07/07/24 tabs Allergies Allergy/AdvReac Type Severity Reaction Status Date / Time doxycycline Allergy Severe Swelling Verified 07/13/24 14:09 varenicline [From CHANTIX] Allergy Severe ANAPHYLAXIS Verified 07/13/24 14:09 azithromycin Allergy Intermediate Rash Verified 07/13/24 14:09 barium sulfate Allergy Intermediate angioedema Verified 07/13/24 14:09 cetirizine Allergy Mild Rash Verified 07/13/24 14:09 famotidine Allergy Mild Rash Verified 07/13/24 14:09 linaclotide [Linzess] Allergy Mild Rash Verified 07/13/24 14:09 Review of Systems 2 Review of Systems: Constitutional : No Fever, No Chills ENT/Mouth : No Hoarseness, No sore throat, No Rhinorrhea Eyes: No Redness, No Discharge, No Vision Changes Cardiovascular : No Chest Pain, positive SOB, positive Dyspnea on Exertion, No Edema Respiratory : positive Cough, No Sputum, positive Wheezing, Gastrointestinal : No Nausea, No Vomiting, No Diarrhea, pos abdominal Pain Genitourinary : No Dysuria, No Hematuria Musculoskeletal : No joint pain, No Myalgias Skin : No rash Neuro : No Weakness, No Numbness, No Headache Psych : No anxiety, depression Heme/Lymph: No Bruising, No Bleeding Endocrine : No Polyuria, No Polydipsia All other systems reviewed and are negative PMFSH Past Medical History Attestation statement: The following information was validated with the patient. Source: old records reviewed Medical History Chronic lung disease Hypoxic respiratory failure Nocturnal hypoxemia HENRY (obstructive sleep apnea) COPD (chronic obstructive pulmonary disease) Diabetes mellitus COPD exacerbation Crack cocaine use Hyperkalemia Metabolic acidosis Leukocytosis Chest discomfort Chronic renal failure, stage 2 (mild) SOB (shortness of breath) Asthma Smoker Rotator cuff tendonitis GERD (gastroesophageal reflux disease) Chronic idiopathic constipation Bustos's esophagus Depression High triglycerides Gastroparesis Carpal tunnel syndrome of right wrist Nausea & vomiting Hernia Acute and chronic respiratory failure, unspecified whether with hypoxia or hypercapnia HTN (hypertension) Obesity (BMI 30-39.9) Knee pain, bilateral Surgical History History of cholecystectomy (~1988) History of carpal tunnel release Hx of tubal ligation History of pubovaginal sling (~2015) History of umbilical hernia repair (~2001) Hx of section History of open reduction and internal fixation (ORIF) procedure History of esophagogastroduodenoscopy (EGD) Family History Family History Father Heart disease HENRY (obstructive sleep apnea) Family history of breast cancer Mother Asthma Emphysema, unspecified Bronchitis Smoker Alcoholism Bone marrow disease Maternal Grandmother Diabetes Social History Social History Household Members: Family Household Members Other:: sister Housing: House Are you a primary healthcare administration internship to a significant other at home: No Do you presently have visiting nurse or other home services: Yes Unable to assess alcohol history related to: Unknown Alcohol intake: former Comment: Sleeping Patient Tobacco Use Status: Current everyday Tobacco user Tobacco use type: Cigarette Cigarette Packs Per Day: 1 Cigarettes Per Day: 20.0 Years Smoked: 48 Smoked in Last 30 Days: Yes e-Cigarette/Vaping Use: Currently Using Second Hand Smoke Exposure: No Use of substances other than those prescribed or required for medical reasons: Yes Substance Use Type: Crack/Cocaine Substance Use Frequency: Occasionally Last Used Substance: Days (ago) Advance Directives: Yes Advance Directives on File: Yes Advance Directives Date on File: 12/19/23 Do you have a plan to hurt others: No Plan Patient : No service: No Current occupational status: disabled 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 Physical Exam 2 Vital Signs: Vital Signs: Last Vital Signs Temp 98.1 F 07/13/24 14:55 Pulse 115 H 07/13/24 15:03 Resp 16 07/13/24 15:03 BP 130/57 L 07/13/24 16:07 Pulse Ox 92 07/13/24 15:03 O2 Del Method Nasal Cannula 07/13/24 15:03 O2 Flow Rate 4 07/13/24 15:03 BMI result Body Mass Index 31.3 Appearance: Alert. Oriented X3. mild acute distress. Eyes: Pupils equal, round and reactive to light. ENT: Pharynx normal. Neck: Normal inspection. Neck supple. CVS: Normal heart rate and rhythm. Pulses normal. Respiratory: mild respiratory distress labored with retractions. Breath sounds diminished Abdomen: Soft slight distention reports upper abd ttp no rebound or guarding Skin: Skin warm and dry. Normal skin color. Normal skin turgor. Extremities: No lower extremity edema. Neuro: Oriented X 3. No motor deficit. No sensory deficit. CN2-12 intact Course Course Course Narrative: off bipap 1450 looks well Medications Administered Discontinued Medications Generic Name Dose Route Start Last Admin Trade Name Brian PRN Reason Stop Dose Admin Ceftriaxone Sodium 1 gm 07/13/24 14:00 07/13/24 14:32 Ceftriaxone Sodium 1 Gm Vial IVPUSH 07/13/24 14:01 1 gm ONCE ONE Administration Furosemide 20 mg 07/13/24 15:42 07/13/24 16:07 Furosemide 20 Mg/2 Ml Vial IVPUSH 07/13/24 15:43 20 mg ONCE ONE Administration Protocol Magnesium Sulfate 2 gm in 50 mls @ 150 mls/hr 07/13/24 14:00 07/13/24 14:37 Magnesium Sulfate/H2o IV 07/13/24 14:19 Infused ONCE ONE Infusion Medical Decision Making Medical Decision Making [facility] Narrative: 54 yo female with PMH of COPD/asthma overlap syndrome on 2L NC and intermittent bipap if she needs it during the day/naps/bedtime, active smoker, HENRY, DM2, HTN, GERD here with c/o 2 days of cough, dyspnea, no fevers, no chest pain states her abdomen is feeling full and she has a hard time eating - no n/v/d having BMs and passing gas. At this time given her hx and work of breathing, labs, IV magnesium, continue Bipap, VBG and obtain CT scan for her abdominal pain could be mass/constipation/obstruction. Differential Diagnosis Differential Diagnoses: The differential diagnosis associated with the presentation includes COPD, asthma, viral syndrome Admission/Observation Consideration of admission/observation: Escalation of care including admission/observation considered start on IV lasix, admit for COPD Consult Healthcare Provider Management of the patient was discussed with: Hospitalist (will admit) Lab Data [facility] Lab Attestation statement: I reviewed the patient's lab results. 07/13/24 14:28 07/13/24 14:28 Labs: Lab Results 07/13/24 07/13/24 07/13/24 Range/Units 14:28 14:39 16:01 WBC 11.5 H (4.8-10.8) X10*3/uL RBC 4.34 (4.20-5.50) X10*6/uL Hgb 9.9 L (12.0-16.0) g/dl Hct 33.7 L (37.0-47.0) % MCV 77.6 L (80.0-98.0) fL MCH 22.8 L (27.0-33.0) pg MCHC 29.4 L (31.0-35.0) g/dl RDW 18.6 H (11.0-16.0) % Plt Count 420 H (160-400) X10*3/uL MPV 9.3 L (9.4-12.3) fL Immature Gran % (Auto) 0.4 (0.0-0.4) % Neut % (Auto) 61.5 (45-73) % Lymph % (Auto) 28.6 (20-40) % Mora % (Auto) 7.7 (2-11) % Eos % (Auto) 1.5 (0-4) % Baso % (Auto) 0.3 (0-2) % Lymph # (Auto) 3.3 (1.2-4.9) X10*3/uL [place]a # (Auto) 0.9 (0.1-1.2) X10*3/uL Eos # (Auto) 0.2 (0.0-0.4) X10*3/uL Baso # (Auto) 0.0 (0.0-0.2) X10*3/uL Abs Immat Gran (auto) 0.05 H (0.00-0.03) X10*3/uL Absolute Neuts (auto) 7.1 (2.0-8.3) x10*3/uL Absolute Nucleated RBC 0.000 (0.0-0.012) X10*3/uL Nucleated RBC % (auto) 0.0 (0.0-0.2) /100WBC VBG pH 7.40 (7.32-7.43) VBG pCO2 57 mmHg VBG pO2 41 mmHg VBG HCO3 36 H (22-26) mmol/L VBG O2 Saturation 64.0 % VBG Base Excess 10.0 mmol/L Sodium 143 (135-145) mmol/L Potassium 3.9 (3.3-5.1) mmol/L Chloride 107 (96-108) mmol/L Carbon Dioxide 31 H (22-29) mmol/L Anion Gap 9 L (12-20) BUN 11 (9-16) mg/dL Creatinine 0.83 (0.5-1.4) mg/dL Estim Creat Clear Calc 64.5 Estimated GFR > 60 Random Glucose 92 (60-115) mg/dL Lactic Acid 1.2 (0.5-2.0) mmol/L Calcium 8.6 D (8.4-10.2) mg/dL Magnesium 1.6 (1.6-2.6) mg/dL Total Bilirubin 0.2 (0.0-1.0) mg/dL Direct Bilirubin < 0.2 (0.0-0.5) mg/dL AST 20 (5-31) U/L ALT 7 (0-31) U/L Alkaline Phosphatase 100 (39-117) U/L Troponin I High Sens 14.1 (<3.5-17.0) ng/L B-Natriuretic Peptide 129 H (<100) pg/mL Total Protein 6.2 L (6.5-8.0) g/dL Albumin 3.4 L (3.5-5.0) g/dL Lipase 25 (8-78) U/L Urine Color Yellow Urine Appearance Clear Urine pH 5.5 (5.0-9.0) Ur Specific Ault 1.020 (1.005-1.025) Urine Protein Negative (Neg-Trace) mg/dL Urine Glucose (UA) Negative (Negative) mg/dL Urine Ketones Negative (Negative) mg/dL Urine Blood Negative (Negative) Urine Nitrite Negative (Negative) Ur Leukocyte Esterase Moderate (2+) H (Negative) Urine RBC 0-2 (0-2) /HPF Urine WBC 6-10 H (0-5) /HPF Ur Squamous Epith Cells 11-20 (0-2) /HPF Urine Bacteria 1+ (None Seen) Hyaline Casts 3-5 (0-2) /LPF Urine Yeast Present Urine Opiates Screen Not Detected (Not Detect) Ur Buprenorphine Scrn Not Detected (Not Detect) ng/mL Ur Oxycodone Screen Not Detected (Not Detect) ng/mL Urine Methadone Screen Not Detected (Not Detect) ng/mL Urine Fentanyl Screen Not Detected (Not Detect) Ur Barbiturates Screen Not Detected (Not Detect) Ur Phencyclidine Scrn Not Detected (Not Detect) Ur Amphetamines Screen Not Detected (Not Detect) U Benzodiazepines Scrn Not Detected (Not Detect) Urine Cocaine Screen POSITIVE H (Not Detect) U Marijuana (THC) Screen Not Detected (Not Detect) Influenza Type A (PCR) NEGATIVE (Negative) Influenza Type B (PCR) NEGATIVE (Negative) RSV RNA Qual (PCR) NEGATIVE (Negative) SARS-CoV-2 RNA (RT-PCR) NEGATIVE (Negative) Independent Interpretation I performed an independent interpretation of an: EKG, Plain X-Ray (no pneumonia) and CT Scan (no acute cause) Interpretation: Rate: 106 Rhythm: sinus tachycardia [place]: normal pulm P waves. Normal RADU. Normal QRS complex. ST T wave : no RADHA, flat t waves inf leads qTC: 467 prior studies: no sig change from prior The study has been interpreted contemporaneously by me. . Radiology Impression Discussion of test interpretation with radiology: I have reviewed the radiologist's reading. Independent Historian Clinical information obtained from an independent historian. History obtained from or confirmed by: EMS External Record Review External record reviewed: Inpatient record and Outpatient record Critical Care Time Critical Care Time Critical Care Time: Yes Total Critical Care Time: 45 Attestation: IV magnesium, NIPPV for resp distress, admission, VBG I attest to this time spent taking care of the patient Discharge Plan Discharge Clinical Impression: Cocaine use, Acute exacerbation of chronic obstructive airways disease Patient Disposition: Admitted As Inpatient Prescriptions: No Action (DME) lancets [FreeStyle Lancets] 28 gauge misc See Rx Instructions .ROUTE .MEDSUPPLY Qty: 100 1RF Rx Instructions: Use to check blood sugar daily or if symptomatic hypo/hypergylcemia (DME) 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 meter [FreeStyle Lite Meter] Kit See Rx Instructions .ROUTE .MEDSUPPLY Qty: 1 0RF Rx Instructions: Use to check blood sugar daily or if symptomatic for hypo/hyperglycemia (DME) FreeStyle Lite Strips Strip See Rx Instructions .ROUTE .MEDSUPPLY Qty: 100 1RF Rx Instructions: Use to check blood sugar daily or if symptomatic hypo/hypergylcemia furosemide 20 mg tablet 20 mg PO DAILY Qty: 90 3RF aspirin 81 mg tablet,delayed release (DR/EC) 81 mg PO DAILY 90 Days Qty: 90 1RF theophylline 400 mg tablet extended release 24 hr 400 mg PO BID 90 Days Qty: 180 4RF sertraline 100 mg tablet 100 mg PO DAILY Qty: 90 0RF glipizide 5 mg tablet 5 mg PO DAILY Qty: 90 0RF albuterol sulfate [Ventolin HFA] 90 mcg/actuation HFA aerosol inhaler 2 puff inhalation Q6H PRN (Reason: for wheezing) Qty: 1 6RF Stiolto Respimat 2.5-2.5 mcg/actuation mist 2 puff INHALATION DAILY Qty: 4 6RF ibuprofen 800 mg tablet 800 mg PO BID PRN (Reason: pain) Qty: 60 0RF Rx Instructions: please use sparingly due to diabetes tizanidine 4 mg tablet 4 mg PO Q12H PRN (Reason: muscle spasm) 30 Days Qty: 60 0RF Rx Instructions: do not take concurrently with famotidine gabapentin 800 mg tablet 800 mg PO QID 30 Days Qty: 120 0RF acetaminophen 650 mg tablet extended release 650 mg PO Q12H PRN (Reason: pain) 30 Days Qty: 60 0RF nicotine 21 mg/24 hr Patch 24 Hour 1 patch TRANSDERMAL DAILY PRN (Reason: Nicotine Cravings) calcium carbonate-vitamin D3 500 mg-10 mcg (400 unit) tablet 1 tab PO DAILY guaifenesin [Mucinex] 600 mg Tablet Extended Release 12hr 600 mg PO BID Qty: 20 0RF benzonatate 100 mg Capsule 100 mg PO TID PRN (Reason: Cough) Qty: 20 0RF prednisone 20 mg tablet 40 mg PO DAILY Qty: 10 0RF ipratropium bromide 0.02 % solution 2.5 ml inhalation Q6H PRN (Reason: Wheezing) Qty: 150 0RF albuterol sulfate 2.5 mg /3 mL (0.083 %) Solution For Nebulization 2.5 mg inhalation RQ4H PRN (Reason: Shortness Of Breath/Wheezing) Qty: 150 0RF dexlansoprazole [Dexilant] 60 mg capsule,biphase delayed releas 60 mg PO DAILY@0630 losartan 25 mg tablet 25 mg PO DAILY 90 Days Qty: 90 0RF atorvastatin 20 mg tablet 20 mg PO BEDTIME 90 Days Qty: 90 0RF Print Language: [place]
[2024-07-13] MEDS: Magnesium Sulfate/H2O 2 GM/50 ML PIGGYBACK IV (14:17)
--- NOTE | 2024-07-13 14:20 | PC.RT ---
Pt brought in via EMS on CPAP. Per cartographic engineer, pt took txs x4 herself before calling 911. EMS gave steroids and duonebs x2. Upon RT assessment, pt lung sounds are clear bilateral with good air movement. No additional tx given at this time due to high quantity given pre hospital, will reassess. Pt has increased RR and respiratory effort, SATs 88% on 2L. Pt placed on bipap as documented, pt celio well, RR decreased to 19-20.
--- NOTE | 2024-07-13 14:28 | PC.NURSE ---
pt biba from home c/o dyspnea and nonproductive cough x a few days. pt verbalizes she woke up this am w/ worsening sx. pt self administered 4 breathing txs at home w/o relief. upon ED arrival - pt noted to be at 79% on 3L via NC (baseline). pt then given duoneb x 2 and solumedrol via EMS. ineffective so pt was placed on cpap upon ED arrival. upon ED arrival - pt a&ox4. tachycardic. tachypneic. attempted to wean pt off of cpap and place pt on 2L via NC. pt noted to have WOB and desat to 88% on 2L via NC. pt then placed on bipap via RT. 20gIV in the right AC via EMS - patent/intact. another 20gIV placed in the left AC - labs obtained/sent to lab. ekg performed by tech. medication administered per provider order. plan of care ongoing. call ott placed within reach.
[2024-07-13] MEDS: cefTRIAXone sodium 1 GM VIAL IVPUSH (14:32)
[2024-07-13 14:39] LABS: MANUAL DIFF FLAG NO
[2024-07-13 14:43] LABS: Basophils Percent Auto 0.3 % (0-2); Eosinophils Absolute Auto 0.2 X10*3/uL (0.0-0.4); Eosinophils Percent Auto 1.5 % (0-4); Hematocrit 33.7 % (37.0-47.0); Hemoglobin 9.9 g/dl (12.0-16.0); Imm Gran Abs Auto 0.05 X10*3/uL (0.00-0.03); Imm Gran Pct Auto 0.4 % (0.0-0.4); Lymphocytes Absolute Auto 3.3 X10*3/uL (1.2-4.9); Lymphocytes Percent Auto 28.6 % (20-40); Mean Corpuscular HGB Conc 29.4 g/dl (31.0-35.0); Mean Corpuscular Hemoglobin 22.8 pg (27.0-33.0); Mean Corpuscular Volume 77.6 fL (80.0-98.0); Mean Platelet Volume 9.3 fL (9.4-12.3); Monocytes Absolute Auto 0.9 X10*3/uL (0.1-1.2); Monocytes Percent Auto 7.7 % (2-11); Neutrophils Absolute Auto 7.1 x10*3/uL (2.0-8.3); Neutrophils Percent Auto 61.5 % (45-73); Platelet Count 420 X10*3/uL (160-400); Red Blood Count 4.34 X10*6/uL (4.20-5.50); Red Cell Distribution Width 18.6 % (11.0-16.0); White Blood Count 11.5 X10*3/uL (4.8-10.8)
[2024-07-13 14:51] LABS: VBG HCO3 36 mmol/L (22-26); VBG pCO2 57 mmHg; VBG pO2 41 mmHg
[2024-07-13 14:52] LABS: Venous Blood Gas Refer to POC result
[2024-07-13 14:55] LABS: Lactic Acid 1.2 mmol/L (0.5-2.0)
[2024-07-13 14:57] LABS: Alanine Aminotransferase 7 U/L (0-31); Albumin Level 3.4 g/dL (3.5-5.0); Alkaline Phosphatase 100 U/L (39-117); Anion Gap 9 (12-20); Aspartate Amino Transferase 20 U/L (5-31); Bilirubin Direct < 0.2 mg/dL (0.0-0.5); Bilirubin Total 0.2 mg/dL (0.0-1.0); Blood Urea Nitrogen 11 mg/dL (9-16); Calcium 8.6 mg/dL (8.4-10.2); Carbon Dioxide 31 mmol/L (22-29); Chloride 107 mmol/L (96-108); Creatinine Clr Calc Pharmacy 64.5; Estimated Glomerular Filt Rate > 60; Glucose Random 92 mg/dL (60-115); Lipase 25 U/L (8-78); Magnesium 1.6 mg/dL (1.6-2.6); Potassium 3.9 mmol/L (3.3-5.1); Sodium 143 mmol/L (135-145); Total Protein 6.2 g/dL (6.5-8.0)
[2024-07-13 15:01] LABS: B Type Natriuretic Peptide 129 pg/mL (<100)
[2024-07-13 15:02] LABS: Troponin-I High Sensitivity 14.1 ng/L (<3.5-17.0)
--- NOTE | 2024-07-13 15:10 | PC.NURSE ---
pt transitioned off of bipap and placed on 4L via NC via RT. pt tolerated transition well. wob decreased at this time. pt remains in upright position to promote patent airway. respirations even/unlabored. plan of care ongoing. call ott placed within reach .
[2024-07-13 15:29] LABS: Influenza A PCR NEGATIVE (Negative); Influenza B PCR NEGATIVE (Negative); Resp Syncy Virus RNA Qual PCR NEGATIVE (Negative); SARS COV2 PCR INHOUSE NEGATIVE (Negative)
[2024-07-13 16:07] LABS: Appearance Urine Clear; Color Urine Yellow; Glucose Urine UA Negative (Negative); Leukocyte Esterase Urine Moderate (2+) (Negative); Nitrite Urine Negative (Negative); PH 5.5 (5.0-9.0); UMIC TRIGGER UACC YES; Urine Blood Negative (Negative); Urine Ketones Negative (Negative); Urine Protein Negative (Neg-Trace)
[2024-07-13] MEDS: Furosemide 20 MG/2 ML VIAL IVPUSH (16:07)
--- NOTE | 2024-07-13 16:09 | PC.NURSE ---
pt ambulated to the restroom w/ a strong steady gait while utilizing O2. pt denies feeling sob/chest pain/dizziness/lightheadedness during exertion. urine obtained/sent to lab. medication administered per provider order. purewick now in place. pt waiting for CT to be completed at this time. plan of care ongoing.
[2024-07-13 16:18] LABS: Amphetamine Screen Urine Not Detected (Not Detect); Barbiturates, Urine Not Detected (Not Detect); Benzodiazepines Screen Urine Not Detected (Not Detect); Buprenorphine Scr Not Detected (Not Detect); Cannabinoid Screen Urine Not Detected (Not Detect); Cocaine Screen Urine POSITIVE (Not Detect); Fentanyl, urine Not Detected (Not Detect); Methadone Screen, Urine Not Detected (Not Detect); Opiate Screen Urine Not Detected (Not Detect); Oxycodone Screen Urine Not Detected (Not Detect); Phencyclidine Screen Urine Not Detected (Not Detect)
[2024-07-13 16:26] LABS: Bacteria Urine 1+ (None Seen); RBC Urine 0-2 /HPF (0-2); UACC Culture Trigger YES
--- NOTE | 2024-07-13 16:40 | PC.NURSE ---
pt to CT at this time.
[2024-07-13 18:23] LABS: Immature Retic Fraction 25.5 % (3.0-15.9); Iron 15 mcg/dL (30-160); Percent Iron Saturation 6 % (15-50); Retic HGB Equivalent 19.9 pg (30.0-35.0); Reticulocyte Percent 1.6 % (0.5-1.8); Reticulocytes Absolute 0.067 X10*6/uL (0.026-0.095); Total Iron Binding Capacity 272 mcg/dL (228-428); Unsaturated Iron Binding 257 ug/dL
--- NOTE | 2024-07-13 18:31 | P.HPHOSP_ITS ---
History of Present Illness Date of Service: 07/13/24 Chief Complaint: dyspnea, cough 54yo F with chronic hypoxic respiratory failure on 2L O2 and nocturnal BiPAP due to COPD/asthma overlap and HENRY/OHS, DM2, HTN, GERD, tobacco abuse, and cocaine abuse presenting with 3 days of worsening dyspnea, dry cough, and wheeze. No chest pain, sputum production, hemoptysis, fever, or sick contacts. She last smoked cocaine 4 days ago. She also complains of generalized abdominal pain without nausea, vomiting, anorexia, diarrhea, or constipation. She came in via EMS on CPAP then was placed on BiPAP due to respiratory distress with RR of 36 but has been off since 1450. CXR with chronic atelectasis/scarring and CT A/P without any acute pathology . She was given furosemide, ceftriaxone, and magnesium. Covid-19/flu/RSV PCR negative. Urine toxicology positive for cocaine. VBG pH 7.4, pCO2 57. Review of Systems 2 Review of Systems: Yes all other systems are reviewed and are negative [facility] Medical History Chronic lung disease Hypoxic respiratory failure Nocturnal hypoxemia HENRY (obstructive sleep apnea) COPD (chronic obstructive pulmonary disease) Diabetes mellitus COPD exacerbation Crack cocaine use Hyperkalemia Metabolic acidosis Leukocytosis Chest discomfort Chronic renal failure, stage 2 (mild) SOB (shortness of breath) Asthma Smoker Rotator cuff tendonitis GERD (gastroesophageal reflux disease) Chronic idiopathic constipation Bustos's esophagus Depression High triglycerides Gastroparesis Carpal tunnel syndrome of right wrist Nausea & vomiting Hernia Acute and chronic respiratory failure, unspecified whether with hypoxia or hypercapnia HTN (hypertension) Obesity (BMI 30-39.9) Knee pain, bilateral Family History Father Heart disease HENRY (obstructive sleep apnea) Family history of breast cancer Mother Asthma Emphysema, unspecified Bronchitis Smoker Alcoholism Bone marrow disease Maternal Grandmother Diabetes Surgical History History of cholecystectomy (~1988) History of carpal tunnel release Hx of tubal ligation History of pubovaginal sling (~2015) History of umbilical hernia repair (~2001) Hx of section History of open reduction and internal fixation (ORIF) procedure History of esophagogastroduodenoscopy (EGD) Social History Household Members: Family Household Members Other:: sister Housing: House Are you a primary critical care unit manager to a significant other at home: No Do you presently have visiting nurse or other home services: Yes Unable to assess alcohol history related to: Unknown Alcohol intake: former Comment: Sleeping Patient Tobacco Use Status: Current everyday Tobacco user Tobacco use type: Cigarette Cigarette Packs Per Day: 1 Cigarettes Per Day: 20.0 Years Smoked: 48 Smoked in Last 30 Days: Yes e-Cigarette/Vaping Use: Currently Using Second Hand Smoke Exposure: No Use of substances other than those prescribed or required for medical reasons: Yes Substance Use Type: Crack/Cocaine Substance Use Frequency: Occasionally Last Used Substance: Days (ago) Advance Directives: Yes Advance Directives on File: Yes Advance Directives Date on File: 12/19/23 Do you have a plan to hurt others: No Plan Patient : No service: No Current occupational status: disabled 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 Meds Allergies Allergy/AdvReac Type Severity Reaction Status Date / Time doxycycline Allergy Severe Swelling Verified 07/13/24 14:09 varenicline [From CHANTIX] Allergy Severe ANAPHYLAXIS Verified 07/13/24 14:09 azithromycin Allergy Intermediate Rash Verified 07/13/24 14:09 barium sulfate Allergy Intermediate angioedema Verified 07/13/24 14:09 cetirizine Allergy Mild Rash Verified 07/13/24 14:09 famotidine Allergy Mild Rash Verified 07/13/24 14:09 linaclotide [Linzess] Allergy Mild Rash Verified 07/13/24 14:09 Active Medications: Current Medications Acetaminophen (Acetaminophen 325 Mg Tablet) 650 mg PO Q6H PRN PRN Reason: Pain, Mild 1-3,fever,headache Albuterol Sulfate (Albuterol Sulfate (0.083%) 2.5 Mg/3 Ml Vial.Neb) 2.5 mg INHALE Q2H PRN PRN Reason: Shortness of Breath/Wheezing Albuterol/Ipratropium (Albuterol/Iprat 2.5/0.5mg 3 Ml Ampul.Neb) 3 ml INHALE RQ4H WHILE AWAKE [place] Calcium Carbonate (Calcium Carbonate 750 Mg Tab.Chew) 750 mg PO Q4H PRN PRN Reason: Heartburn Cefuroxime Axetil (Cefuroxime Axetil 500 Mg Tablet) 500 mg PO Q12H [place] Enoxaparin Sodium (Enoxaparin Sodium 40 Mg/0.4 Ml Syringe) 40 mg SUBCUT Q24H [place] Magnesium Hydroxide (Milk Of Magnesia 30 Ml Oral.Susp) 30 ml PO DAILY PRN PRN Reason: Constipation Melatonin (Melatonin 3 Mg Tablet) 6 mg PO BEDTIME PRN PRN Reason: Insomnia Methylprednisolone Sodium Succinate (Methylprednisolone Sod Succ 40 Mg/Ml Vial) 40 mg IVPUSH Q12H [place] Ondansetron HCl (Ondansetron Hcl 4 Mg/2 Ml Vial) 4 mg IVPUSH Q4H PRN PRN Reason: Nausea and Vomiting Sodium Chloride (0.9 % Sodium Chloride Flush 3 Ml Syringe) 3 ml IVFLUSH QSHIFT [facility] Home Medications ?Medication ?Instructions ?Recorded ?Confirmed ?Last Taken ?Type dexlansoprazole 60 mg 60 mg PO DAILY@0630 12/16/23 06/26/24 06/25/24 History capsule,biphase delayed release (Dexilant) nicotine 21 mg/24 hr daily 1 patch transdermal DAILY PRN 04/05/24 06/26/24 05/04/24 History transdermal patch Nicotine Cravings calcium 500 mg (as 1 tab PO DAILY 06/26/24 06/26/24 06/25/24 History carbonate)-vitamin D3 10 mcg (400 unit) tablet Physical Exam 2 Vital Signs and Narrative: Vital Signs: Last Vital Signs Temp 98.1 F 07/13/24 18:23 Pulse 102 H 07/13/24 18:23 Resp 16 07/13/24 18:23 BP 125/63 07/13/24 18:23 Pulse Ox 99 07/13/24 18:23 O2 Del Method Room Air 07/13/24 18:23 O2 Flow Rate 4 07/13/24 15:03 BMI result Body Mass Index 31.3 Gen: in no acute distress HEENT: sclera anicteric, moist mucus membranes Neck: supple Lungs: diminished throughout, soft exp wheezes Heart: rapid, no murmurs Abd: soft, non-tender, non-distended Ext: no edema Skin: warm/well-perfused Neuro: alert and oriented x3, no focal findings Psych: appropriate affect Results Labs 07/13/24 14:28 07/13/24 14:28 Labs: Laboratory Results - last 24 hr 07/13/24 07/13/24 07/13/24 14:28 14:39 16:01 MCV 77.6 L MCH 22.8 L MCHC 29.4 L RDW 18.6 H Plt Count 420 H MPV 9.3 L Immature Gran % (Auto) 0.4 Neut % (Auto) 61.5 Lymph % (Auto) 28.6 [place] % (Auto) 7.7 Eos % (Auto) 1.5 Baso % (Auto) 0.3 Lymph # (Auto) 3.3 [place] # (Auto) 0.9 Eos # (Auto) 0.2 Baso # (Auto) 0.0 Abs Immat Gran (auto) 0.05 H Absolute Neuts (auto) 7.1 Absolute Nucleated RBC 0.000 Nucleated RBC % (auto) 0.0 Absolute Retic 0.067 Percent Retic 1.6 Immature Retic Fraction 25.5 H Retic Hgb Equivalent 19.9 L VBG pH 7.40 VBG pCO2 57 VBG pO2 41 VBG HCO3 36 H VBG O2 Saturation 64.0 VBG Base Excess 10.0 Anion Gap 9 L Estim Creat Clear Calc 64.5 Estimated GFR > 60 Random Glucose 92 Lactic Acid 1.2 Calcium 8.6 D Magnesium 1.6 Iron 15 L TIBC 272 % Saturation 6 L Unsat Iron Binding 257 Total Bilirubin 0.2 Direct Bilirubin < 0.2 AST 20 ALT 7 Alkaline Phosphatase 100 Troponin I High Sens 14.1 B-Natriuretic Peptide 129 H Total Protein 6.2 L Albumin 3.4 L Lipase 25 Urine Color Yellow Urine Appearance Clear Urine pH 5.5 Ur Specific [place] 1.020 Urine Protein Negative Urine Glucose (UA) Negative Urine Ketones Negative Urine Blood Negative Urine Nitrite Negative Ur Leukocyte Esterase Moderate (2+) H Urine RBC 0-2 Urine WBC 6-10 H Ur Squamous Epith Cells 11-20 Urine Bacteria 1+ Hyaline Casts 3-5 Urine Yeast Present Urine Opiates Screen Not Detected Ur Buprenorphine Scrn Not Detected Ur Oxycodone Screen Not Detected Urine Methadone Screen Not Detected Urine Fentanyl Screen Not Detected Ur Barbiturates Screen Not Detected Ur Phencyclidine Scrn Not Detected Ur Amphetamines Screen Not Detected U Benzodiazepines Scrn Not Detected Urine Cocaine Screen POSITIVE H U Marijuana (THC) Screen Not Detected Influenza Type A (PCR) NEGATIVE Influenza Type B (PCR) NEGATIVE RSV RNA Qual (PCR) NEGATIVE SARS-CoV-2 RNA (RT-PCR) NEGATIVE CT A/P 07/13 The liver is upper limits of normal in size. Cholecystectomy. There are several adrenal nodules bilaterally the majority of which are similar to previous and presumably adenomas. One of the nodules on the left is mildly increased however this appears to represent an adenoma based on hounsfield units on the previous noncontrast study. There are small nonobstructive renal stones. No hydronephrosis. There is renal scarring more pronounced on the left. The spleen and pancreas are unremarkable. No abdominal aortic aneurysm. No diverticulitis. Normal appendix. No bowel obstruction. Previous ventral and inguinal hernia repairs. There is a small fat containing umbilical hernia. The bladder is mildly distended. Patchy densities in the lower lungs presumably represent mild scarring or atelectasis. 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 Prominent degenerative changes in the spine. Mild bilateral hip DJD. Impression: Normal appendix. No diverticulitis or bowel obstruction. Additional findings as above. Imaging Radiologist's Impressions: Impressions Chest X-Ray 07/13/24 14:01 IMPRESSION: No acute process. Prominent right infrahilar markings may represent chronic atelectasis or scarring. Electronically signed by: Sanjeev Cruz MD 07/13/2024 02:48 PM [facility] Assessment and Plan (1) Acute exacerbation of chronic obstructive airways disease: Status: Acute Plan 54yo F with chronic hypoxic respiratory failure on 2L O2 and nocturnal BiPAP due to COPD/asthma overlap and HENRY/OHS, DM2, HTN, GERD, tobacco abuse, and cocaine abuse presenting with 3 days of cough, wheeze, and dyspnea. acute respiratory failure due to asthma/COPD exacerbation - admit to telemetry, give steroids, nebs, cefuroxime [allergic to doxy + azithro], continue theophylline, avoid cocaine chronic hypoxic resp failure HENRY/OHS - 2L O2, nocturnal BiPAP cocaine abuse - counseling, Addiction Team, screen HBV/HCV/HIV tobacco abuse - NRT CHRONIC ISSUES HLD: statin DM2: niecy-dose lispro GERD: PPI HTN: furosemide, losartan chronic pain: gabapentin, tizanidine mood disorder: sertraline VTE prophylaxis - enoxaparin dispo - TBD code status - full I anticipate that the patient will stay at least 2 midnights as an inpatient in the hospital due to the above reasons. It is neither reasonable nor safe to care for them in a less acute setting. Quality Stroke Does the patient have a stroke diagnosis?: No VTE Prior VTE?: No VTE Risk Level:: Medical - moderate - high VTE Device Contraindication: N/A - Device Ordered VTE Drug Contraindication: N/A - Med Ordered
[2024-07-13 18:44] LABS: Ferritin 36 ng/mL (10-250); Procalcitonin 0.03 ng/mL
[2024-07-13] MEDS: methylPREDNISolone Sod Succ 40 MG/ML VIAL IVPUSH (19:03)
[2024-07-13] MEDS: Enoxaparin Sodium 40 MG/0.4 ML SYRINGE SUBCUT (19:03)
--- NOTE | 2024-07-13 19:24 | PHA.MEDREC ---
Addendum entered by Paul Nolan 07/13/24 20:08: reviewed Original Note: Pharmacy Consult ? Medication Reconciliation Pharmacy has completed the medication reconciliation. Spoke with patient and she confirmed she was just discharged from here on 06/27 and that everything on the med rec was up to date. She confirmed she finished the Prednisone 20mg regimen a few weeks ago and the cough medications that was prescribed to her for cough she states she never was able to get from her pharmacy but states she would of liked to start taking them. She confirmed she took all of her medications today except the Gabapentin 800mg and Sertraline 100mg.
[2024-07-13] MEDS: Albuterol/Iprat 2.5/0.5MG 3 ML AMPUL.NEB INHALE (20:35)
[2024-07-13] MEDS: Atorvastatin Calcium 20 MG TABLET PO (21:21)
[2024-07-13] MEDS: Theophylline Anhydrous ER 400 MG TAB.ER.24H PO (21:21)
[2024-07-13] MEDS: Gabapentin 400 MG CAPSULE 800 MG PO (21:21)
[2024-07-13 21:40] LABS: Glucose, Whole Blood 407 mg/dL (60-115)
[2024-07-13 21:40] LABS: Glucose, Whole Blood 414 mg/dL (60-115)
[2024-07-13] MEDS: Insulin Lispro 100 UNIT/ML 3 ML VIAL SUBCUT (22:11)
[2024-07-13] MEDS: Insulin Regular, Human 100 UNIT/ML 10 ML VIAL 10 UNIT IVPUSH (22:11)
[2024-07-13] MEDS: Acetaminophen 325 MG TABLET 650 MG PO (22:15)
[2024-07-14] VITALS (12 sets, daily range): BP systolic 117–146; BP diastolic 56–99; PULSE 90–107; RESP 15–21; TEMP 36.3–36.6; O2SAT 92–97
[2024-07-14] MEDS: 0.9 % Sodium Chloride Flush 3 ML SYRINGE IVFLUSH ×2 (00:28→07:20)
[2024-07-14 05:14] LABS: VBG Base Excess 8.9 mmol/L; VBG HCO3 36 mmol/L (22-26); VBG pCO2 63 mmHg; VBG pH 7.36 (7.32-7.43); VBG pO2 54 mmHg
[2024-07-14 05:16] LABS: Hematocrit 34.8 % (37.0-47.0); Hemoglobin 10.4 g/dl (12.0-16.0); Mean Corpuscular HGB Conc 29.9 g/dl (31.0-35.0); Mean Corpuscular Hemoglobin 22.6 pg (27.0-33.0); Mean Corpuscular Volume 75.5 fL (80.0-98.0); Mean Platelet Volume 9.1 fL (9.4-12.3); Platelet Count 448 X10*3/uL (160-400); Red Blood Count 4.61 X10*6/uL (4.20-5.50); White Blood Count 6.8 X10*3/uL (4.8-10.8)
[2024-07-14 05:31] LABS: Anion Gap 14 (12-20); Blood Urea Nitrogen 15 mg/dL (9-16); Carbon Dioxide 27 mmol/L (22-29); Chloride 101 mmol/L (96-108); Creatinine Clr Calc Pharmacy 70.5; Estimated Glomerular Filt Rate > 60; Glucose Random 178 mg/dL (60-115); Potassium 4.8 mmol/L (3.3-5.1); Sodium 137 mmol/L (135-145)
[2024-07-14 05:51] LABS: HBS Num1 0.03 mIU/mL (0-7.99); HBsAGNum1 0.28 S/CO (0.00-0.99); HIV AB/AG Nonreactive (Nonreactive); HIV Num 1 0.07 S/CO (0.00-0.99); Hepatitis B Core Antibody Nonreactive (Nonreactive); Hepatitis B Surface Antigen Negative (Negative); ~HepC Num1 0.77 S/CO (0.00-0.79); ~Hepatitis B Surface Antibody NONREACTIVE (Nonreactive); ~Hepatitis C Antibody Nonreactive (Nonreactive)
--- NOTE | 2024-07-14 06:16 | PC.NURSE ---
pt utilized bipap throughout the night, slept well. requesting food now prior to breakfast tray, crackers provided.
[2024-07-14 06:19] LABS: Venous Blood Gas Refer to POC result
[2024-07-14] MEDS: Omeprazole 40 MG CAPSULE.DR PO (06:22)
[2024-07-14] MEDS: methylPREDNISolone Sod Succ 40 MG/ML VIAL IVPUSH ×2 (06:22→17:49)
[2024-07-14] MEDS: Albuterol/Iprat 2.5/0.5MG 3 ML AMPUL.NEB INHALE ×3 (07:10→14:53)
[2024-07-14] MEDS: Benzonatate 100 MG CAPSULE 200 MG PO (07:17)
[2024-07-14] MEDS: Aspirin Enteric Coated 81 MG TABLET.DR PO (07:18)
[2024-07-14] MEDS: cefuroxime axetiL 500 MG TABLET PO (07:18)
[2024-07-14] MEDS: Furosemide 20 MG TABLET PO (07:18)
[2024-07-14] MEDS: Losartan Potassium 25 MG TABLET PO (07:18)
[2024-07-14] MEDS: Insulin Lispro 100 UNIT/ML 3 ML VIAL SUBCUT ×3 (07:52→17:49)
[2024-07-14 07:54] LABS: Glucose, Whole Blood 322 mg/dL (60-115)
[2024-07-14] MEDS: Theophylline Anhydrous ER 400 MG TAB.ER.24H PO (08:46)
[2024-07-14] MEDS: Calcium + Vitamin D 250 MG TABLET PO (08:47)
[2024-07-14] MEDS: Sertraline HCL 100 MG TABLET PO (08:47)
[2024-07-14] MEDS: Gabapentin 400 MG CAPSULE 800 MG PO ×3 (08:47→17:49)
--- NOTE | 2024-07-14 10:59 | P.F2F_ITS ---
Service Date Service Date: 07/14/24 Encounter Date of encounter: 07/14/24 Reasons for Services Signs and symptoms assessed: dyspnea Reason for group home: medication management, medication treatment and teach disease management Reason for occupational therapy: home safety and mobility, therapeutic exercises, gait/transfer training, assess need for DME, ADL training, energy conservation and other (pulm rehab) MD Overseeing Care: Joe Hale Homebound: Leaving the home is medically contraindicated at this time without the asist of a device and/or another person due th the listed conditions above and below. Reason homebound: shortness of breath with minimal effort Certification: Based on the above findings, I certify that this patient is confined to the home and needs intermittent group home care, physical therapy and/or speech therapy, or continues to need occupational therapy. The patient is under my care, and I have initiated the establishment of the plan of care. The patient will be followed by a physician who will periodically review the plan of care. Time Spent With Patient Time: Total time managing care of this patient today ____ minutes.
--- NOTE | 2024-07-14 11:05 | P.DS_ITS ---
DS: Providers Provider Date of Service: 07/14/24 Date of admission: 07/13/24 18:25 Date of discharge: 07/14/24 Primary care physician: LORIE Lazcano- Consults: 07/13/24 18:04 Addiction Medicine Routine Consulting Provider: Addiction Covering Reason for consultation: cocaine abuse DS: Diagnosis Discharge Diagnosis (1) Acute exacerbation of chronic obstructive airways disease: Status: Acute (2) Cocaine abuse: Status: Acute (3) HENRY (obstructive sleep apnea): Status: Acute (4) Obesity hypoventilation syndrome: Status: Acute (5) Acute and chronic respiratory failure, unspecified whether with hypoxia or hypercapnia: Status: Acute DS: Summary Hospital Course Hospital Course: from my admission H+P 07/13/24: 54yo F with chronic hypoxic respiratory failure on 2L O2 and nocturnal BiPAP due to COPD/asthma overlap and HENRY/OHS, DM2, HTN, GERD, tobacco abuse, and cocaine abuse presenting with 3 days of worsening dyspnea, dry cough, and wheeze. No chest pain, sputum production, hemoptysis, fever, or sick contacts. She last smoked cocaine 4 days ago. She also complains of generalized abdominal pain without nausea, vomiting, anorexia, diarrhea, or constipation. She came in via EMS on CPAP then was placed on BiPAP due to respiratory distress with RR of 36 but has been off since 1450. CXR with chronic atelectasis/scarring and CT A/P without any acute pathology . She was given furosemide, ceftriaxone, and magnesium. Covid-19/flu/RSV PCR negative. Urine toxicology positive for cocaine. VBG pH 7.4, pCO2 57. She was admitted to the hospitalist service and treated with IV steroids and nebulized bronchodilators along with cefuroxime. She improved quickly and was discharged home on prednisone and cefuroxime. 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 She was counseled to avoid cocaine completely. Time Attestation Discharge Coordination Time (in mins): 40 Quality: Safe Use of Opioids Does Pt have an Active Cancer Diagnosis on the Problem List?: No Quality: Stroke Does the patient have a stroke diagnosis?: No Physical Exam Vital Signs: Vital Signs: Last Vital Signs Temp 97.3 F 07/14/24 06:00 Pulse 104 H 07/14/24 10:06 Resp 17 07/14/24 10:06 BP 145/73 H 07/14/24 07:25 Pulse Ox 94 07/14/24 10:06 O2 Del Method Nasal Cannula 07/14/24 10:06 O2 Flow Rate 2 07/14/24 10:06 BMI result Body Mass Index 31.3 Gen: in no acute distress HEENT: sclera anicteric, moist mucus membranes Neck: supple Lungs: diminished throughout Heart: rapid, no murmurs Abd: soft, non-tender, non-distended Ext: no edema Skin: warm/well-perfused Neuro: alert and oriented x3, no focal findings Psych: appropriate affect DS: Data Data Completed and Pending Completed studies during hospitalization [Text1]: Laboratory Results WBC 6.8 X10*3/uL (4.8-10.8) 07/14/24 05:01 RBC 4.61 X10*6/uL (4.20-5.50) 07/14/24 05:01 Hgb 10.4 g/dl (12.0-16.0) L 07/14/24 05:01 Hct 34.8 % (37.0-47.0) L 07/14/24 05:01 MCV 75.5 fL (80.0-98.0) L 07/14/24 05:01 MCH 22.6 pg (27.0-33.0) L 07/14/24 05:01 MCHC 29.9 g/dl (31.0-35.0) L 07/14/24 05:01 RDW 18.0 % (11.0-16.0) H 07/14/24 05:01 Plt Count 448 X10*3/uL (160-400) H 07/14/24 05:01 MPV 9.1 fL (9.4-12.3) L 07/14/24 05:01 Immature Gran % (Auto) 0.4 % (0.0-0.4) 07/13/24 14:28 Neut % (Auto) 61.5 % (45-73) 07/13/24 14:28 Lymph % (Auto) 28.6 % (20-40) 07/13/24 14:28 [place] % (Auto) 7.7 % (2-11) 07/13/24 14:28 Eos % (Auto) 1.5 % (0-4) 07/13/24 14: Baso % (Auto) 0.3 % (0-2) 07/13/24 14: Lymph # (Auto) 3.3 X10*3/uL (1.2-4.9) 07/13/24 14: [place] # (Auto) 0.9 X10*3/uL (0.1-1.2) 07/13/24 14: Eos # (Auto) 0.2 X10*3/uL (0.0-0.4) 07/13/24 14: Baso # (Auto) 0.0 X10*3/uL (0.0-0.2) 07/13/24 14: Abs Immat Gran (auto) 0.05 X10*3/uL (0.00-0.03) H 07/13/24 14: Absolute Neuts (auto) 7.1 x10*3/uL (2.0-8.3) 07/13/24 14: Absolute Nucleated RBC 0.000 X10*3/uL (0.0-0.012) 07/14/24 05:01 Nucleated RBC % (auto) 0.0 /100WBC (0.0-0.2) 07/14/24 05:01 Absolute Retic 0.067 X10*6/uL (0.026-0.095) 07/13/24 14: Percent Retic 1.6 % (0.5-1.8) 07/13/24 14: Immature Retic Fraction 25.5 % (3.0-15.9) H 07/13/24 14: Retic Hgb Equivalent 19.9 pg (30.0-35.0) L 07/13/24 14: VBG pH 7.36 (7.32-7.43) 07/14/24 05:07 VBG pCO2 63 mmHg 07/14/24 05:07 VBG pO2 54 mmHg 07/14/24 05:07 VBG HCO3 36 mmol/L (22-26) H 07/14/24 05:07 VBG O2 Saturation 81.0 % 07/14/24 05:07 VBG Base Excess 8.9 mmol/L 07/14/24 05:07 Sodium 137 mmol/L (135-145) 07/14/24 05:01 Potassium 4.8 mmol/L (3.3-5.1) D 07/14/24 05:01 Chloride 101 mmol/L (96-108) 07/14/24 05:01 Carbon Dioxide 27 mmol/L (22-29) 07/14/24 05:01 Anion Gap 14 (12-20) 07/14/24 05:01 BUN 15 mg/dL (9-16) 07/14/24 05:01 Creatinine 0.76 mg/dL (0.5-1.4) 07/14/24 05:01 Estim Creat Clear Calc 70.5 07/14/24 05:01 Estimated GFR > 60 07/14/24 05:01 POC Glucose 322 mg/dL (60-115) H 07/14/24 07:24 Random Glucose 178 mg/dL (60-115) H 07/14/24 05:01 Lactic Acid 1.2 mmol/L (0.5-2.0) 07/13/24 14:28 Calcium 9.0 mg/dL (8.4-10.2) 07/14/24 05:01 Magnesium 1.6 mg/dL (1.6-2.6) 07/13/24 14:28 Iron 15 mcg/dL (30-160) L 07/13/24 14:28 TIBC 272 mcg/dL (228-428) 07/13/24 14:28 % Saturation 6 % (15-50) L 07/13/24 14:28 Unsat Iron Binding 257 ug/dL 07/13/24 14:28 Ferritin 36 ng/mL (10-250) 07/13/24 14:28 Total Bilirubin 0.2 mg/dL (0.0-1.0) 07/13/24 14:28 Direct Bilirubin < 0.2 mg/dL (0.0-0.5) 07/13/24 14:28 AST 20 U/L (5-31) 07/13/24 14:28 ALT 7 U/L (0-31) 07/13/24 14:28 Alkaline Phosphatase 100 U/L (39-117) 07/13/24 14:28 Troponin I High Sens 14.1 ng/L (<3.5-17.0) 07/13/24 14:28 B-Natriuretic Peptide 129 pg/mL (<100) H 07/13/24 14:28 Total Protein 6.2 g/dL (6.5-8.0) L 07/13/24 14: Albumin 3.4 g/dL (3.5-5.0) L 07/13/24 14:28 Lipase 25 U/L (8-78) 07/13/24 14:28 Procalcitonin 0.03 ng/mL 07/13/24 14:28 Urine Color Yellow 07/13/24 16:01 Urine Appearance Clear 07/13/24 16:01 Urine pH 5.5 (5.0-9.0) 07/13/24 16:01 Ur Specific [place] 1.020 (1.005-1.025) 07/13/24 16:01 Urine Protein Negative mg/dL (Neg-Trace) 07/13/24 16:01 Urine Glucose (UA) Negative mg/dL (Negative) 07/13/24 16: Urine Ketones Negative mg/dL (Negative) 07/13/24 16:01 Urine Blood Negative (Negative) 07/13/24 16: Urine Nitrite Negative (Negative) 07/13/24 16:01 Ur Leukocyte Esterase Moderate (2+) (Negative) H 07/13/24 16:01 Urine RBC 0-2 /HPF (0-2) 07/13/24 16:01 Urine WBC 6-10 /HPF (0-5) H 07/13/24 16:01 Ur Squamous Epith Cells 11-20 /HPF (0-2) 07/13/24 16:01 Urine Bacteria 1+ (None Seen) 07/13/24 16:01 Hyaline Casts 3-5 /LPF (0-2) 07/13/24 16:01 Urine Yeast Present 07/13/24 16:01 Urine Opiates Screen Not Detected (Not Detect) 07/13/24 16:01 Ur Buprenorphine Scrn Not Detected ng/mL (Not Detect) 07/13/24 16:01 Ur Oxycodone Screen Not Detected ng/mL (Not Detect) 07/13/24 16:01 Urine Methadone Screen Not Detected ng/mL (Not Detect) 07/13/24 16:01 Urine Fentanyl Screen Not Detected (Not Detect) 07/13/24 16:01 Ur Barbiturates Screen Not Detected (Not Detect) 07/13/24 16:01 Ur Phencyclidine Scrn Not Detected (Not Detect) 07/13/24 16:01 Ur Amphetamines Screen Not Detected (Not Detect) 07/13/24 16:01 U Benzodiazepines Scrn Not Detected (Not Detect) 07/13/24 16:01 Urine Cocaine Screen POSITIVE (Not Detect) H 07/13/24 16:01 U Marijuana (THC) Screen Not Detected (Not Detect) 07/13/24 16:01 Hep Bs Antigen Negative (Negative) 07/14/24 05:01 Hep Bs Antibody NONREACTIVE (Nonreactive) 07/14/24 05:01 Hep B Core Total Ab Nonreactive (Nonreactive) 07/14/24 05:01 Hepatitis C Ab (EIA) Nonreactive (Nonreactive) 07/14/24 05:01 HIV 1&2 Ab/P24 Ag 4thGn Nonreactive (Nonreactive) 07/14/24 05:01 Influenza Type A (PCR) NEGATIVE (Negative) 07/13/24 14:28 Influenza Type B (PCR) NEGATIVE (Negative) 07/13/24 14:28 RSV RNA Qual (PCR) NEGATIVE (Negative) 07/13/24 14:28 SARS-CoV-2 RNA (RT-PCR) NEGATIVE (Negative) 07/13/24 14:28 Impressions Chest X-Ray 07/13/24 14:01 IMPRESSION: No acute process. Prominent right infrahilar markings may represent chronic atelectasis or scarring. Electronically signed by: Sanjeev Cruz MD 07/13/2024 02:48 PM [facility] [place] CT A/P 07/13/24 Normal appendix. No diverticulitis or bowel obstruction. Additional findings as above. Discharge Plan Discharge Anticipated Discharge Date/Time: 07/14/24 10:52 Patient Disposition: Home Health Service Discharge Diagnosis: COPD exacerbation chronic hypoxic/hypercarbic respiratory failure HENRY/obesity hypoventilation syndrome cocaine abuse Referrals: Joe Hale FNP-BC [Primary Care Provider] - 1 Week Kolby Kessler MD [Physician] - 2 Weeks Discharge Medications: New cefuroxime axetil 500 mg Tablet 500 mg PO Q12H Qty: 8 0RF prednisone 20 mg tablet 40 mg PO DAILY Qty: 8 0RF Continued (DME) lancets [FreeStyle Lancets] 28 gauge misc See Rx Instructions .ROUTE .MEDSUPPLY Qty: 100 1RF Rx Instructions: Use to check blood sugar daily or if symptomatic hypo/hypergylcemia (DME) 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 meter [FreeStyle Lite Meter] Kit See Rx Instructions .ROUTE .MEDSUPPLY Qty: 1 0RF Rx Instructions: Use to check blood sugar daily or if symptomatic for hypo/hyperglycemia (DME) FreeStyle Lite Strips Strip See Rx Instructions .ROUTE .MEDSUPPLY Qty: 100 1RF Rx Instructions: Use to check blood sugar daily or if symptomatic hypo/hypergylcemia furosemide 20 mg tablet 20 mg PO DAILY Qty: 90 3RF aspirin 81 mg tablet,delayed release (DR/EC) 81 mg PO DAILY 90 Days Qty: 90 1RF theophylline 400 mg tablet extended release 24 hr 400 mg PO BID 90 Days Qty: 180 4RF sertraline 100 mg tablet 100 mg PO DAILY Qty: 90 0RF glipizide 5 mg tablet 5 mg PO DAILY Qty: 90 0RF albuterol sulfate [Ventolin HFA] 90 mcg/actuation HFA aerosol inhaler 2 puff inhalation Q6H PRN (Reason: for wheezing) Qty: 1 6RF Stiolto Respimat 2.5-2.5 mcg/actuation mist 2 puff INHALATION DAILY Qty: 4 6RF ibuprofen 800 mg tablet 800 mg PO BID PRN (Reason: pain) Qty: 60 0RF Rx Instructions: please use sparingly due to diabetes tizanidine 4 mg tablet 4 mg PO Q12H PRN (Reason: muscle spasm) 30 Days Qty: 60 0RF Rx Instructions: do not take concurrently with famotidine gabapentin 800 mg tablet 800 mg PO QID 30 Days Qty: 120 0RF acetaminophen 650 mg tablet extended release 650 mg PO Q12H PRN (Reason: pain) 30 Days Qty: 60 0RF nicotine 21 mg/24 hr Patch 24 Hour 1 patch TRANSDERMAL DAILY PRN (Reason: Nicotine Cravings) calcium carbonate-vitamin D3 500 mg-10 mcg (400 unit) tablet 1 tab PO DAILY ipratropium bromide 0.02 % solution 2.5 ml inhalation Q6H PRN (Reason: Wheezing) Qty: 150 0RF albuterol sulfate 2.5 mg /3 mL (0.083 %) solution for nebulization 2.5 mg inhalation Q4H PRN (Reason: Shortness Of Breath/Wheezing) dexlansoprazole [Dexilant] 60 mg capsule,biphase delayed releas 60 mg PO DAILY@0630 losartan 25 mg tablet 25 mg PO DAILY 90 Days Qty: 90 0RF atorvastatin 20 mg tablet 20 mg PO BEDTIME 90 Days Qty: 90 0RF Discharge Orders: Discharge Order (Routine); Ordered 07/14/24 Ordered By: John Andrade Diet: Diabetic diet Activity on Discharge: As tolerated Stand Alone Forms: Patient Portal Discharge page Print Language: Bangladeshi Care Plan Goals: pulmonary health Health Concerns: COPD exacerbation chronic hypoxic/hypercarbic respiratory failure HENRY/obesity hypoventilation syndrome cocaine abuse Plan of Treatment: prednisone 40 mg daily x 4 days cefuroxime 500 mg twice daily x 4 days use BiPAP at night and for all naps follow up with Pulmonology in 2 weeks quit smoking [use nicotine placement] avoid cocaine Please follow up with your primary care doctor within 1 week. Return to the hospital if you experience recurrent or worsening symptoms. Assessment: See Discharge Summary.
--- NOTE | 2024-07-14 11:09 | HO.ADDICTCON ---
History of Present Illness Date of Service: 07/14/24 Chief Complaint: COPD exac Reason for Consult: cocaine use Discussed with referring provider: Yes Sources of Information: patient interviewed and chart reviewed HPI Narrative: Patient is a 54 year old female medically admitted with CPOD exacerbation Patient reported ongoing cocaine use at time of admission, so consult requested to evaluate and treat. Patient seen in room 18 of [facility]--awaiting room assignment. She is awake, alert, sitting up in bed, pleasant and engaged in interview. She reports that she has been smoking crack cocaine since she was 17 years old. Use increased over time Eventually smoking daily to every other day. She reports one month period of not smoking, when she was out of state visiting her grandchildren. Denies any other substance use, including alcohol States that she stopped drinking 2 years ago, after years of drinking too much . Denies any history of overdose Denies any history of treatment Reports strong family history of SUDs Discussed how ongoing cocaine use is impacting overall health, including how it likely contributed to her current presentation and admission. She has has several ED presentations and admissions for similar complaints (resp distress). She states that she is aware that it is because she is still smoking crack cocaine, but it is so hard to just stop Shared feelings of shame and embarrassment at having to come to the hospital States that her daughter has told her she is going to admit her to a program, but patient is not interested Discussed treatment options, including risk reduction Discussed continuing to cut down/minimize use. She is aware that abstinence is the most beneficial with her comorbid conditions Discussed medications that may be beneficial in addressing cravings--topiramate in particular. Patient expressed desire to trial this medication Discussed recovery supports --she reports minimal supports. Also reports that she does not do much outside of her home because she lives on the 3rd floor and has difficulty ambulating. Review of Systems Constitutional: Reports as per HPI and Reports no additional constitutional complaints Diagnostics Vital Signs (24Hr): Vital Signs - 24 hr 07/13/24 14:09 07/13/24 14:18 07/13/24 14:19 Temperature 98.0 F Pulse Rate 55 Respiratory Rate 19 36 H Blood Pressure 120/58 L Pulse Oximetry 100 Oxygen Delivery Method BiPAP BiPAP Oxygen Flow Rate 07/13/24 14:55 07/13/24 15:03 07/13/24 16:07 Temperature 98.1 F Pulse Rate 123 H 115 H Respiratory Rate 18 16 Blood Pressure 128/69 130/57 L Pulse Oximetry 97 92 Oxygen Delivery Method BiPAP Nasal Cannula Oxygen Flow Rate 4 07/13/24 18:23 07/13/24 18:58 07/13/24 20:36 Temperature 98.1 F 98.3 F Pulse Rate 102 H 98 112 H Respiratory Rate 16 20 Blood Pressure 125/63 107/69 Pulse Oximetry 99 95 Oxygen Delivery Method Room Air Nasal Cannula Oxygen Flow Rate 4 07/13/24 21:37 07/13/24 23:05 07/13/24 23:53 Temperature 97.6 F 97.4 F Pulse Rate 112 H 95 Respiratory Rate 19 20 18 Blood Pressure 115/69 123/79 Pulse Oximetry 96 99 Oxygen Delivery Method Nasal Cannula BiPAP Oxygen Flow Rate 3 07/14/24 02:59 07/14/24 04:00 07/14/24 06:00 Temperature 97.9 F 97.3 F Pulse Rate 92 102 H Respiratory Rate 18 21 H 17 Blood Pressure 146/99 H 123/56 L Pulse Oximetry 93 94 Oxygen Delivery Method BiPAP Nasal Cannula Oxygen Flow Rate 3 07/14/24 07:11 07/14/24 07:18 07/14/24 07:18 Temperature Pulse Rate 102 H Respiratory Rate 17 Blood Pressure 123/56 L 123/56 L Pulse Oximetry Oxygen Delivery Method Oxygen Flow Rate 07/14/24 07:25 07/14/24 10:06 Temperature Pulse Rate 107 H 104 H Respiratory Rate 19 17 Blood Pressure 145/73 H Pulse Oximetry 92 94 Oxygen Delivery Method Nasal Cannula Nasal Cannula Oxygen Flow Rate 2 2 BMI result Body Mass Index 31.3 Labs 07/14/24 05:01 07/14/24 05:01 Labs: Laboratory Results - last 48 hr 07/13/24 07/13/24 07/13/24 14:28 14:39 16:01 WBC 11.5 H RBC 4.34 Hgb 9.9 L Hct 33.7 L MCV 77.6 L MCH 22.8 L MCHC 29.4 L RDW 18.6 H Plt Count 420 H MPV 9.3 L Immature Gran % (Auto) 0.4 Neut % (Auto) 61.5 Lymph % (Auto) 28.6 [place] % (Auto) 7.7 Eos % (Auto) 1.5 Baso % (Auto) 0.3 Lymph # (Auto) 3.3 [place] # (Auto) 0.9 Eos # (Auto) 0.2 Baso # (Auto) 0.0 Abs Immat Gran (auto) 0.05 H Absolute Neuts (auto) 7.1 Absolute Nucleated RBC 0.000 Nucleated RBC % (auto) 0.0 Absolute Retic 0.067 Percent Retic 1.6 Immature Retic Fraction 25.5 H Retic Hgb Equivalent 19.9 L VBG pH 7.40 VBG pCO2 57 VBG pO2 41 VBG HCO3 36 H VBG O2 Saturation 64.0 VBG Base Excess 10.0 Sodium 143 Potassium 3.9 Chloride 107 Carbon Dioxide 31 H Anion Gap 9 L BUN 11 Creatinine 0.83 Estim Creat Clear Calc 64.5 Estimated GFR > 60 POC Glucose Random Glucose 92 Lactic Acid 1.2 Calcium 8.6 D Magnesium 1.6 Iron 15 L TIBC 272 % Saturation 6 L Unsat Iron Binding 257 Ferritin 36 Total Bilirubin 0.2 Direct Bilirubin < 0.2 AST 20 ALT 7 Alkaline Phosphatase 100 Troponin I High Sens 14.1 B-Natriuretic Peptide 129 H Total Protein 6.2 L Albumin 3.4 L Lipase 25 Procalcitonin 0.03 Urine Color Yellow Urine Appearance Clear Urine pH 5.5 Ur Specific [place] 1.020 Urine Protein Negative Urine Glucose (UA) Negative Urine Ketones Negative Urine Blood Negative Urine Nitrite Negative Ur Leukocyte Esterase Moderate (2+) H Urine RBC 0-2 Urine WBC 6-10 H Ur Squamous Epith Cells 11-20 Urine Bacteria 1+ Hyaline Casts 3-5 Urine Yeast Present Urine Opiates Screen Not Detected Ur Buprenorphine Scrn Not Detected Ur Oxycodone Screen Not Detected Urine Methadone Screen Not Detected Urine Fentanyl Screen Not Detected Ur Barbiturates Screen Not Detected Ur Phencyclidine Scrn Not Detected Ur Amphetamines Screen Not Detected U Benzodiazepines Scrn Not Detected Urine Cocaine Screen POSITIVE H U Marijuana (THC) Screen Not Detected Hep Bs Antigen Hep Bs Antibody Hep B Core Total Ab Hepatitis C Ab (EIA) HIV 1&2 Ab/P24 Ag 4thGn Influenza Type A (PCR) NEGATIVE Influenza Type B (PCR) NEGATIVE RSV RNA Qual (PCR) NEGATIVE SARS-CoV-2 RNA (RT-PCR) NEGATIVE 07/13/24 07/13/24 07/14/24 21:33 21:35 05:01 WBC 6.8 RBC 4.61 Hgb 10.4 L Hct 34.8 L MCV 75.5 L MCH 22.6 L MCHC 29.9 L RDW 18.0 H Plt Count 448 H MPV 9.1 L Immature Gran % (Auto) Neut % (Auto) Lymph % (Auto) [place] % (Auto) Eos % (Auto) Baso % (Auto) Lymph # (Auto) [place] # (Auto) Eos # (Auto) Baso # (Auto) Abs Immat Gran (auto) Absolute Neuts (auto) Absolute Nucleated RBC 0.000 Nucleated RBC % (auto) 0.0 Absolute Retic Percent Retic Immature Retic Fraction Retic Hgb Equivalent VBG pH VBG pCO2 VBG pO2 VBG HCO3 VBG O2 Saturation VBG Base Excess Sodium 137 Potassium 4.8 D Chloride 101 Carbon Dioxide 27 Anion Gap 14 BUN 15 Creatinine 0.76 Estim Creat Clear Calc 70.5 Estimated GFR > 60 POC Glucose 407 H* 414 H* Random Glucose 178 H Lactic Acid Calcium 9.0 Magnesium Iron TIBC % Saturation Unsat Iron Binding Ferritin Total Bilirubin Direct Bilirubin AST ALT Alkaline Phosphatase Troponin I High Sens B-Natriuretic Peptide Total Protein Albumin Lipase Procalcitonin Urine Color Urine Appearance Urine pH Ur Specific [place] Urine Protein Urine Glucose (UA) Urine Ketones Urine Blood Urine Nitrite Ur Leukocyte Esterase Urine RBC Urine WBC Ur Squamous Epith Cells Urine Bacteria Hyaline Casts Urine Yeast Urine Opiates Screen Ur Buprenorphine Scrn Ur Oxycodone Screen Urine Methadone Screen Urine Fentanyl Screen Ur Barbiturates Screen Ur Phencyclidine Scrn Ur Amphetamines Screen U Benzodiazepines Scrn Urine Cocaine Screen U Marijuana (THC) Screen Hep Bs Antigen Negative Hep Bs Antibody NONREACTIVE Hep B Core Total Ab Nonreactive Hepatitis C Ab (EIA) Nonreactive HIV 1&2 Ab/P24 Ag 4thGn Nonreactive Influenza Type A (PCR) Influenza Type B (PCR) RSV RNA Qual (PCR) SARS-CoV-2 RNA (RT-PCR) 07/14/24 07/14/24 05:07 07:24 WBC RBC Hgb Hct MCV MCH MCHC RDW Plt Count MPV Immature Gran % (Auto) Neut % (Auto) Lymph % (Auto) [place] % (Auto) Eos % (Auto) Baso % (Auto) Lymph # (Auto) [place] # (Auto) Eos # (Auto) Baso # (Auto) Abs Immat Gran (auto) Absolute Neuts (auto) Absolute Nucleated RBC Nucleated RBC % (auto) Absolute Retic Percent Retic Immature Retic Fraction Retic Hgb Equivalent VBG pH 7.36 VBG pCO2 63 VBG pO2 54 VBG HCO3 36 H VBG O2 Saturation 81.0 VBG Base Excess 8.9 Sodium Potassium Chloride Carbon Dioxide Anion Gap BUN Creatinine Estim Creat Clear Calc Estimated GFR POC Glucose 322 H Random Glucose Lactic Acid Calcium Magnesium Iron TIBC % Saturation Unsat Iron Binding Ferritin Total Bilirubin Direct Bilirubin AST ALT Alkaline Phosphatase Troponin I High Sens B-Natriuretic Peptide Total Protein Albumin Lipase Procalcitonin Urine Color Urine Appearance Urine pH Ur Specific [place] Urine Protein Urine Glucose (UA) Urine Ketones Urine Blood Urine Nitrite Ur Leukocyte Esterase Urine RBC Urine WBC Ur Squamous Epith Cells Urine Bacteria Hyaline Casts Urine Yeast Urine Opiates Screen Ur Buprenorphine Scrn Ur Oxycodone Screen Urine Methadone Screen Urine Fentanyl Screen Ur Barbiturates Screen Ur Phencyclidine Scrn Ur Amphetamines Screen U Benzodiazepines Scrn Urine Cocaine Screen U Marijuana (THC) Screen Hep Bs Antigen Hep Bs Antibody Hep B Core Total Ab Hepatitis C Ab (EIA) HIV 1&2 Ab/P24 Ag 4thGn Influenza Type A (PCR) Influenza Type B (PCR) RSV RNA Qual (PCR) SARS-CoV-2 RNA (RT-PCR) Imaging Radiology Impressions: ITS Impressions Chest X-Ray 07/13/24 14:01 IMPRESSION: No acute process. Prominent right infrahilar markings may represent chronic atelectasis or scarring. Electronically signed by: Sanjeev Cruz MD 07/13/2024 02:48 PM [facility] [place], [place] Mental Status Exam Mental Status Exam Patient Appearance: Appropriate Level of Consciousness: Awake, Appropriate and Alert Patient Behavior: Appropriate and Talkative Mood Description: Calm Affect Description: Calm Speech Pattern: Clear Medications Medications Current Medications Acetaminophen (Acetaminophen 325 Mg Tablet) 650 mg PO Q6H PRN PRN Reason: Pain, Mild 1-3,fever,headache Last Admin: 07/13/24 22:15 Dose: 650 mg Albuterol Sulfate (Albuterol Sulfate (0.083%) 2.5 Mg/3 Ml Vial.Neb) 2.5 mg INHALE Q2H PRN PRN Reason: Shortness of Breath/Wheezing Albuterol/Ipratropium (Albuterol/Iprat 2.5/0.5mg 3 Ml Ampul.Neb) 3 ml INHALE RQ4H WHILE AWAKE [place] Last Admin: 07/14/24 07:10 Dose: 3 ml Aspirin (Aspirin Enteric Coated 81 Mg Tablet.Dr) 81 mg PO DAILY [facility] Last Admin: 07/14/24 07:18 Dose: 81 mg Atorvastatin Calcium (Atorvastatin Calcium 20 Mg Tablet) 20 mg PO BEDTIME [facility] Last Admin: 07/13/24 21:21 Dose: 20 mg Benzonatate (Benzonatate 100 Mg Capsule) 200 mg PO TID PRN PRN Reason: Cough Last Admin: 07/14/24 07:17 Dose: 200 mg Calcium Carbonate (Calcium Carbonate 750 Mg Tab.Chew) 750 mg PO Q4H PRN PRN Reason: Heartburn Calcium Carbonate/Cholecalciferol (Calcium + Vitamin D 250 Mg Tablet) 250 mg PO DAILY [facility] Last Admin: 07/14/24 08:47 Dose: 250 mg Cefuroxime Axetil (Cefuroxime Axetil 500 Mg Tablet) 500 mg PO Q12H [facility] Last Admin: 07/14/24 07:18 Dose: 500 mg Enoxaparin Sodium (Enoxaparin Sodium 40 Mg/0.4 Ml Syringe) 40 mg SUBCUT Q24H [facility] Last Admin: 07/13/24 19:03 Dose: 40 mg Furosemide (Furosemide 20 Mg Tablet) 20 mg PO DAILY [facility]; Protocol Last Admin: 07/14/24 07:18 Dose: 20 mg Gabapentin (Gabapentin 400 Mg Capsule) 800 mg PO QID [facility] Last Admin: 07/14/24 08:47 Dose: 800 mg Glucose (Glucose Gel 15 Gm Gel..Gram.) 15 gm PO Q15M PRN; Protocol PRN Reason: per Hypoglycemia Standing Ord. Dextrose (D10) 250 mls @ 750 mls/hr IV Q15M PRN; Protocol PRN Reason: per Hypoglycemia Standing Ord. Insulin Human Lispro (Insulin Lispro 100 Unit/Ml 3 Ml Vial) 0 unit SUBCUT QIDACHS [facility]; Protocol Last Admin: 07/14/24 07:52 Dose: 8 unit Losartan Potassium (Losartan Potassium 25 Mg Tablet) 25 mg PO DAILY [facility]; Protocol Last Admin: 07/14/24 07:18 Dose: 25 mg Magnesium Hydroxide (Milk Of Magnesia 30 Ml Oral.Susp) 30 ml PO DAILY PRN PRN Reason: Constipation Melatonin (Melatonin 3 Mg Tablet) 6 mg PO BEDTIME PRN PRN Reason: Insomnia Methylprednisolone Sodium Succinate (Methylprednisolone Sod Succ 40 Mg/Ml Vial) 40 mg IVPUSH Q12H [facility] Last Admin: 07/14/24 06:22 Dose: 40 mg Nicotine (Nicotine 21 Mg Patch.Td24) 21 mg TRANSDERMA DAILY PRN PRN Reason: Nicotine Cravings Non-Formulary Medication (Tiotropium-Olodaterol [Stiolto Respimat]) 2 puff INHALE DAILY [facility] Omeprazole (Omeprazole 40 Mg Capsule.Dr) 40 mg PO DAILY@0630 [facility] Last Admin: 07/14/24 06:22 Dose: 40 mg Ondansetron HCl (Ondansetron Hcl 4 Mg/2 Ml Vial) 4 mg IVPUSH Q4H PRN PRN Reason: Nausea and Vomiting Sertraline HCl (Sertraline Hcl 100 Mg Tablet) 100 mg PO DAILY [facility] Last Admin: 07/14/24 08:47 Dose: 100 mg Sodium Chloride (0.9 % Sodium Chloride Flush 3 Ml Syringe) 3 ml IVFLUSH QSHIFT [facility] Last Admin: 07/14/24 07:20 Dose: 3 ml Theophylline (Theophylline Anhydrous Er 400 Mg Tab.Er.24h) 400 mg PO BID [facility] Last Admin: 07/14/24 08:46 Dose: 400 mg Tizanidine HCl (Tizanidine Hcl 4 Mg Tablet) 4 mg PO Q12H PRN PRN Reason: muscle spasm Allergies Allergies Allergy/AdvReac Type Severity Reaction Status Date / Time doxycycline Allergy Severe Swelling Verified 07/13/24 14:09 varenicline [From CHANTIX] Allergy Severe ANAPHYLAXIS Verified 07/13/24 14:09 azithromycin Allergy Intermediate Rash Verified 07/13/24 14:09 barium sulfate Allergy Intermediate angioedema Verified 07/13/24 14:09 cetirizine Allergy Mild Rash Verified 07/13/24 14:09 famotidine Allergy Mild Rash Verified 07/13/24 14:09 linaclotide [Linzess] Allergy Mild Rash Verified 07/13/24 14:09 Assessment & Plan Assessment & Plan (1) Cocaine use disorder: Status: Acute Code(s): F14.10 - Cocaine abuse, uncomplicated Assessment and Plan: topiramate 25mg BID to address cocaine cravings discussed benefits of creating structure in her day, socializing, minimizing down time which is a trigger for her ongoing use at the time of this note, patient was being discharged home. Will have materials scheduler follow up later this week Total time managing care of this patient today __40__ minutes. [facility] Past Medical History Medical History (Updated 07/14/24 @ 12:18 by Richa Winston CNP) Chronic lung disease Hypoxic respiratory failure Nocturnal hypoxemia HENRY (obstructive sleep apnea) COPD (chronic obstructive pulmonary disease) Diabetes mellitus COPD exacerbation Crack cocaine use Hyperkalemia Metabolic acidosis Leukocytosis Chest discomfort Chronic renal failure, stage 2 (mild) SOB (shortness of breath) Asthma Smoker Rotator cuff tendonitis GERD (gastroesophageal reflux disease) Chronic idiopathic constipation Bustos's esophagus Depression High triglycerides Gastroparesis Carpal tunnel syndrome of right wrist Nausea & vomiting Hernia Acute and chronic respiratory failure, unspecified whether with hypoxia or hypercapnia HTN (hypertension) Obesity (BMI 30-39.9) Knee pain, bilateral Family History Family History Father Heart disease HENRY (obstructive sleep apnea) Family history of breast cancer Mother Asthma Emphysema, unspecified Bronchitis Smoker Alcoholism Bone marrow disease Maternal Grandmother Diabetes Surgical History Surgical History History of cholecystectomy (~1988) History of carpal tunnel release Hx of tubal ligation History of pubovaginal sling (~2015) History of umbilical hernia repair (~2001) Hx of section History of open reduction and internal fixation (ORIF) procedure History of esophagogastroduodenoscopy (EGD) Social History Social History Household Members: Family Household Members Other:: sister Housing: House Are you a primary live in caregiver to a significant other at home: No Do you presently have visiting nurse or other home services: Yes Unable to assess alcohol history related to: Unknown Alcohol intake: former Comment: Sleeping Patient Tobacco Use Status: Current everyday Tobacco user Tobacco use type: Cigarette Cigarette Packs Per Day: 1 Cigarettes Per Day: 20.0 Years Smoked: 48 Smoked in Last 30 Days: Yes e-Cigarette/Vaping Use: Currently Using Second Hand Smoke Exposure: No Use of substances other than those prescribed or required for medical reasons: Yes Substance Use Type: Crack/Cocaine Substance Use Frequency: Occasionally Last Used Substance: Days (ago) Advance Directives: Yes Advance Directives on File: Yes Advance Directives Date on File: 12/19/23 Do you have a plan to hurt others: No Plan Nutrition Risks: No Nutritional Risk Patient : No service: No Current occupational status: disabled 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
--- NOTE | 2024-07-14 11:22 | PC.RT ---
pt walked around ER. Pt celio 3L well, SATs >89%. Pt on baseline O2 of 3L. Pt celio walk well, no difficulty breathing noted. MD and RN notified.
[2024-07-14 13:16] LABS: Glucose, Whole Blood 205 mg/dL (60-115)
[2024-07-14] MEDS: Topiramate 25 MG TABLET PO (14:11)
--- NOTE | 2024-07-14 17:01 | PC.NURSE ---
Pt is discharged, waiting for ambulance transport back home
[2024-07-14 17:45] LABS: Glucose, Whole Blood 186 mg/dL (60-115)
== END 2024-07-14 19:14 | disposition home health service (06) | DRG 140 ==
LOC: HO.ED 17:36 → HO.EDOVER 18:30
PROVIDERS: Admitting Provider Family Medicine; Emergency Provider Emergency Medicine; PCP Nurse Practitioner Family; Visit Provider Family Medicine
DX: J44.1 Chronic obstructive pulmonary disease with (acute) exacerbation (principal); J96.21 Acute and chronic respiratory failure with hypoxia; Z99.81 Dependence on supplemental oxygen; E66.2 Morbid (severe) obesity with alveolar hypoventilation; F17.210 Nicotine dependence, cigarettes, uncomplicated; J96.22 Acute and chronic respiratory failure with hypercapnia; Z68.31 Body mass index [BMI] 31.0-31.9, adult; K21.9 Gastro-esophageal reflux disease without esophagitis; I10 Essential (primary) hypertension; F14.10 Cocaine abuse, uncomplicated; E11.9 Type 2 diabetes mellitus without complications; Z20.822 Contact with and (suspected) exposure to COVID-19; Z71.6 Tobacco abuse counseling; Z79.82 Long term (current) use of aspirin; Z79.84 Long term (current) use of oral hypoglycemic drugs; Z79.899 Other long term (current) drug therapy
CPT/HCPCS: 0241U; 36415; 71045; 74177; 80048; 80076; 80307; 81001; 82728; 82803; 82947; 83540; 83605; 83690; 83735; 83880; 84145; 84484; 85025; 85027; 85045; 86704; 86706; 86803; 87040; 87086; 87340; 87389; 93005; 94640; 94660; 99285; J0696; J1650; J1940; J2919; J3475

== ENCOUNTER → 2024-07-13 14:01 | Outpatient (BNV) | payer OTHER, SELFPAY | PROVIDERS: Emergency Provider Emergency Medicine; Visit Provider Radiology Diagnostic Radiology | DX: R06.02 Shortness of breath (principal) | CPT/HCPCS: 71045; 74177 ==

== ENCOUNTER → 2024-07-13 14:01 | Outpatient (BNV) | payer OTHER, SELFPAY | PROVIDERS: Admitting Provider Family Medicine; Emergency Provider Emergency Medicine; PCP Nurse Practitioner Family; Visit Provider Internal Medicine Cardiovascular Disease | DX: R06.00 Dyspnea, unspecified (principal) | CPT/HCPCS: 93010 ==

== ENCOUNTER → 2024-07-13 18:25 | Outpatient (BNV) | payer OTHER, SELFPAY | PROVIDERS: Admitting Provider Family Medicine; Emergency Provider Emergency Medicine; Visit Provider Family Medicine | DX: J96.21 Acute and chronic respiratory failure with hypoxia (principal); E66.2 Morbid (severe) obesity with alveolar hypoventilation; J44.1 Chronic obstructive pulmonary disease with (acute) exacerbation; F14.10 Cocaine abuse, uncomplicated | CPT/HCPCS: 99223; 99239; G0180 ==

== ENCOUNTER → 2024-07-13 18:25 | Outpatient (BNV) | payer OTHER, SELFPAY | PROVIDERS: Admitting Provider Family Medicine; Emergency Provider Emergency Medicine; PCP Nurse Practitioner Family; Visit Provider Nurse Practitioner Psychiatric/Mental Health | DX: F14.10 Cocaine abuse, uncomplicated (principal) | CPT/HCPCS: 99232 ==

== ENCOUNTER 2024-07-17 06:03 | Inpatient (IN) | payer OTHER, SELFPAY ==
[2024-07-17] VITALS (9 sets, daily range): BP systolic 110–169; BP diastolic 70–87; PULSE 71–120; RESP 16–27; TEMP 36.1–36.8; O2SAT 90–99; BMI 31.3; BMI 37.8
--- NOTE | 2024-07-17 | ECG_ITS ---
Test Reason : sob, chest pain Blood Pressure : */* mmHG Vent. Rate : 105 BPM Atrial Rate : 105 BPM P-R Int : 124 ms QRS Dur : 84 ms QT Int : 356 ms P-R-T Axes : 60 149 52 degrees QTcB Int : 470 ms Sinus tachycardia with Premature atrial complexes with Aberrant conduction Indeterminate axis Possible Right ventricular hypertrophy Abnormal ECG When compared with ECG of 13-Jul-2024 14:48, Criteria for Inferior infarct are no longer Present Referred By: Trev Clay Electronically Signed By: PAUL VARGAS MD
--- NOTE | 2024-07-17 | ECG_ITS ---
Test Reason : Chest pain Blood Pressure : */* mmHG Vent. Rate : 85 BPM Atrial Rate : 85 BPM P-R Int : 122 ms QRS Dur : 88 ms QT Int : 368 ms P-R-T Axes : 69 180 58 degrees QTcB Int : 437 ms Sinus rhythm with Premature atrial complexes Cannot rule out inferior infarct Abnormal ECG When compared with ECG of 17-Jul-2024 06:26, No significant change was found Referred By: Nora Hull Electronically Signed By: Dallin Birmingham
--- NOTE | ~2024-07-17 | XR_ITS ---
CLINICAL HISTORY: Shortness of breath, cough, rule out pneumonia 1 view chest x-ray Comparison: CR/SR - XR CHEST 1V - 05/13/24 07:52 EST Findings: The lungs are clear. Heart size is normal. No acute fracture. IMPRESSION: 1. No acute findings. This document has been electronically signed by: Krystle Ziegler MD on 07/17/2024 06:52:40
--- NOTE | 2024-07-17 06:13 | ED_ITS ---
HPI - SOB/Dyspnea General Chief Complaint: Dyspnea Stated Complaint: SOB, COPD exacerbation, wheezing, CP, recent d/c Time Seen by Provider: 07/17/24 06:13 Source: patient and EMS Mode of arrival: EMS Limitations: no limitations History of Present Illness ED Provider: Dr. Trev Clay HPI Narrative: 54yo F with chronic hypoxic respiratory failure on 2L O2 and nocturnal BiPAP due to COPD/asthma overlap and HENRY/OHS, DM2, HTN, GERD, tobacco abuse, and cocaine abuse recently [place] [facility] [place] until 07/14/2024 (3 days prior to evaluation) for acute on chronic airway disease, cocaine abuse, and acute on chronic respiratory failure. Patient states that since going home she not been feeling well. She states she has been short of breath and has had to use her nebulizer machine 4 times a day with no improvement of her symptoms. She states she has a nonproductive cough. This morning she became more short of breath and called an ambulance. She was given a DuoNeb EN route to the hospital. She denied fever, chills. She states she was had rhinorrhea, nonproductive cough, chest pain, shortness of breath and dyspnea on exertion. She denied nausea vomiting or diarrhea. Related Data Home Medications ?Medication ?Instructions ?Recorded ?Confirmed dexlansoprazole 60 mg 60 mg PO DAILY@0630 12/16/23 07/13/24 capsule,biphase delayed release (Dexilant) nicotine 21 mg/24 hr daily 1 patch transdermal DAILY PRN 04/05/24 07/13/24 transdermal patch Nicotine Cravings calcium 500 mg (as 1 tab PO DAILY 06/26/24 07/13/24 carbonate)-vitamin D3 10 mcg (400 unit) tablet albuterol sulfate 2.5 mg/3 mL 2.5 mg inhalation Q4H PRN 07/13/24 07/13/24 (0.083 %) solution for nebulization Shortness Of Breath/Wheezing Previous Rx's ?Medication ?Instructions ?Recorded lancets 28 gauge (FreeStyle #100 ea 01/20/21 Lancets) 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 meter (FreeStyle #1 ea 03/01/22 Lite Meter kit) blood sugar diagnostic (FreeStyle #100 ea 09/16/22 Lite Strips) furosemide 20 mg tablet 20 mg PO DAILY #90 tabs 12/09/23 aspirin 81 mg tablet,delayed 81 mg PO DAILY 90 days #90 tabs 01/01/24 release theophylline 400 mg 400 mg PO BID 90 days #180 tabs 01/27/24 tablet,extended release 24 hr losartan 25 mg tablet 25 mg PO DAILY 90 days #90 tabs 02/14/24 glipizide 5 mg tablet 5 mg PO DAILY #90 tabs 04/08/24 sertraline 100 mg tablet 100 mg PO DAILY #90 tabs 04/08/24 albuterol sulfate 90 mcg/actuation 2 puff inhalation Q6H PRN for 04/10/24 aerosol inhaler (Ventolin HFA) wheezing #1 ea atorvastatin 20 mg tablet 20 mg PO BEDTIME 90 days #90 tabs 04/23/24 tiotropium 2.5 mcg-olodaterol 2.5 2 puff inhalation DAILY #4 grams 04/28/24 mcg/actuation mist for inhalation (Stiolto Respimat) ibuprofen 800 mg tablet 800 mg PO BID PRN pain #60 tabs 06/11/24 tizanidine 4 mg tablet 4 mg PO Q12H PRN muscle spasm 30 06/11/24 days #60 tabs ipratropium bromide 0.02 % 2.5 ml inhalation Q6H PRN Wheezing 06/27/24 solution for inhalation #150 mL acetaminophen 650 mg 650 mg PO Q12H PRN pain 30 days 07/07/24 tablet,extended release #60 tabs gabapentin 800 mg tablet 800 mg PO QID Pain 30 days #120 07/07/24 tabs cefuroxime axetil 500 mg tablet 500 mg PO Q12H #8 tabs 07/14/24 ferrous sulfate 324 mg (65 mg 324 mg PO Q OTHER DAY #15 tabs 07/14/24 iron) tablet,delayed release prednisone 20 mg tablet 40 mg (2 x 20 mg) PO DAILY #8 tabs 07/14/24 topiramate 25 mg tablet 25 mg PO BID #14 tabs 07/14/24 walker #1 ea 07/14/24 Allergies Allergy/AdvReac Type Severity Reaction Status Date / Time doxycycline Allergy Severe Swelling Verified 07/17/24 06:36 varenicline [From CHANTIX] Allergy Severe ANAPHYLAXIS Verified 07/17/24 06:36 azithromycin Allergy Intermediate Rash Verified 07/17/24 06:36 barium sulfate Allergy Intermediate angioedema Verified 07/17/24 06:36 cetirizine Allergy Mild Rash Verified 07/17/24 06:36 famotidine Allergy Mild Rash Verified 07/17/24 06:36 linaclotide [Linzess] Allergy Mild Rash Verified 07/17/24 06:36 Review of Systems 2 Review of Systems: Yes all other systems are reviewed and are negative [facility] Past Medical History [facility] Narrative: Social history: Patient does smoke cigarettes. She states she occasionally drinks alcohol. She has a history of crack cocaine use but states she was not used it is 5-6 days. Medical History (Updated 07/17/24 @ 09:22 by Trev Clay MD) Chronic lung disease Hypoxic respiratory failure Nocturnal hypoxemia HENRY (obstructive sleep apnea) COPD (chronic obstructive pulmonary disease) Diabetes mellitus COPD exacerbation Crack cocaine use Hyperkalemia Metabolic acidosis Leukocytosis Chest discomfort Chronic renal failure, stage 2 (mild) SOB (shortness of breath) Asthma Smoker Rotator cuff tendonitis GERD (gastroesophageal reflux disease) Chronic idiopathic constipation Bustos's esophagus Depression High triglycerides Gastroparesis Carpal tunnel syndrome of right wrist Nausea & vomiting Hernia Acute and chronic respiratory failure, unspecified whether with hypoxia or hypercapnia HTN (hypertension) Obesity (BMI 30-39.9) Knee pain, bilateral Surgical History History of cholecystectomy (~1988) History of carpal tunnel release Hx of tubal ligation History of pubovaginal sling (~2015) History of umbilical hernia repair (~2001) Hx of section History of open reduction and internal fixation (ORIF) procedure History of esophagogastroduodenoscopy (EGD) Family History Family History Father Heart disease HENRY (obstructive sleep apnea) Family history of breast cancer Mother Asthma Emphysema, unspecified Bronchitis Smoker Alcoholism Bone marrow disease Maternal Grandmother Diabetes Social History Social History Household Members: Family Household Members Other:: sister Housing: House Are you a primary care transitions nurse to a significant other at home: No Do you presently have visiting nurse or other home services: Yes Unable to assess alcohol history related to: Unknown Alcohol intake: former Comment: Sleeping Patient Tobacco Use Status: Current everyday Tobacco user Tobacco use type: Cigarette Cigarette Packs Per Day: 1 Cigarettes Per Day: 20.0 Years Smoked: 48 e-Cigarette/Vaping Use: Currently Using Second Hand Smoke Exposure: No Substance Use Type: Crack/Cocaine Advance Directives: Yes Advance Directives on File: Yes Advance Directives Date on File: 12/19/23 Do you have a plan to hurt others: No Plan service: No Current occupational status: disabled 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 Physical Exam 2 Vital Signs: Vital Signs: Last Vital Signs Temp 98 F 07/17/24 06:33 Pulse 89 07/17/24 06:33 Resp 27 H 07/17/24 06:33 BP 110/81 07/17/24 06:33 Pulse Ox 92 07/17/24 06:33 O2 Del Method Room Air 07/17/24 06:33 BMI result Body Mass Index 31.3 Vital signs revealed an elevated respiratory rate of 27 otherwise unremarkable Exam: General: Awake, alert tachypneic, appears anxious, patient has a DuoNeb running from EMS Head: Normocephalic, atraumatic EENT: PERRL, Lids normal, sclera normal, conjunctiva normal, nose normal , ears normal, throat without erythema or exudates Neck: Supple, no adenopathy Lung: Diffuse rhonchi and wheezing, breath sounds symmetric Chest: symmetric movement, nontender Heart: regular rate and rhythm, normal S1, S2 no murmurs or rubs Abdomen: soft, non-tender, nondistended, normal bowel sounds Back: no vertebral tenderness, no CVAT Extremities: no deformities, moves all extremities symmetrically Neuro: Awake, alert, oriented, normal speech, cranial nerves intact, moves all extremities symmetrically Psych: Pleasant, cooperative Medications Administered Discontinued Medications Generic Name Dose Route Start Last Admin Trade Name Freq PRN Reason Stop Dose Admin Albuterol Sulfate 7.5 mg/ 0 mg 07/17/24 06:39 07/17/24 06:42 Albuterol/Ipratropium 3 ml INHALE 07/17/24 06:40 1 each ONCE ONE Administration Methylprednisolone Sodium Succinate 125 mg 07/17/24 06:15 07/17/24 06:34 Methylprednisolone Sod Succ 125 Mg/2 Ml Vial IVPUSH 07/17/24 06:16 125 mg ONCE ONE Administration Medical Decision Making Medical Decision Making [facility] Narrative: 54yo F with chronic hypoxic respiratory failure on 2L O2 and nocturnal BiPAP due to COPD/asthma overlap and HENRY/OHS, DM2, HTN, GERD, tobacco abuse, and cocaine abuse recently [place] [facility] [place] until 07/14/2024 (3 days prior to evaluation) for acute on chronic airway disease, cocaine abuse, and acute on chronic respiratory failure. Patient states that since going home she not been feeling well. She states she has been short of breath and has had to use her nebulizer machine 4 times a day with no improvement of her symptoms. She states she has a nonproductive cough. This morning she became more short of breath and called an ambulance. She was given a DuoNeb EN route to the hospital. Vital signs revealed an elevated respiratory rate of 27. Lung exam revealed diffuse wheezing and rhonchi with symmetric breath sounds. Differential diagnosis: ?Includes but is not limited to chronic lung disease exacerbation, pneumonia, electrolyte abnormalities, anemia Course: 09:01 My interpretation patient's laboratory evaluation is as follows: WBC elevated 15,400 with normal differential. Microcytic anemia with an H&H of 10.5 and 35.4 with an MCV of 77-this is chronic. Platelet count was elevated 485,000. Venous blood gas revealed an elevated pH of 7.46 with a normal pCO2 of 46. The patient had an elevated bicarb of 33. Patient was chest x-ray revealed no evidence for pneumonia which is reassuring. Patient received albuterol 10 mg and ipratropium 0.5 mg nebulized with some improvement of her symptoms. On re-evaluation her respiratory rate is improved and she no longer appears to be dyspneic but she continues to have significant wheezing. For did discuss admission over tiger text with the covering hospitalist, physician physician assistant Vandana Cline in the patient will be admitted for further treatment Admission/Observation Consideration of admission/observation: Escalation of care including admission/observation considered (Yes) Consult Healthcare Provider Management of the patient was discussed with: Hospitalist Lab Data [facility] Lab Attestation statement: I reviewed the patient's lab results. 07/17/24 06:29 07/17/24 06:29 Labs: Lab Results 07/17/24 07/17/24 Range/Units 06:29 06:35 WBC 15.4 H (4.8-10.8) X10*3/uL RBC 4.60 (4.20-5.50) X10*6/uL Hgb 10.5 L (12.0-16.0) g/dl Hct 35.4 L (37.0-47.0) % MCV 77.0 L (80.0-98.0) fL MCH 22.8 L (27.0-33.0) pg MCHC 29.7 L (31.0-35.0) g/dl RDW 18.1 H (11.0-16.0) % Plt Count 485 H (160-400) X10*3/uL MPV 8.8 L (9.4-12.3) fL Immature Gran % (Auto) 0.5 H (0.0-0.4) % Neut % (Auto) 58.9 (45-73) % Lymph % (Auto) 31.3 (20-40) % Pike % (Auto) 8.0 (2-11) % Eos % (Auto) 1.0 (0-4) % Baso % (Auto) 0.3 (0-2) % Lymph # (Auto) 4.8 (1.2-4.9) X10*3/uL Pike # (Auto) 1.2 (0.1-1.2) X10*3/uL Eos # (Auto) 0.2 (0.0-0.4) X10*3/uL Baso # (Auto) 0.1 (0.0-0.2) X10*3/uL Abs Immat Gran (auto) 0.07 H (0.00-0.03) X10*3/uL Absolute Neuts (auto) 9.1 H (2.0-8.3) x10*3/uL Absolute Nucleated RBC 0.000 (0.0-0.012) X10*3/uL Nucleated RBC % (auto) 0.0 (0.0-0.2) /100WBC VBG pH 7.46 H (7.32-7.43) VBG pCO2 46 mmHg VBG pO2 55 mmHg VBG HCO3 33 H (22-26) mmol/L VBG O2 Saturation 88.0 % VBG Base Excess 8.5 mmol/L Sodium 140 (135-145) mmol/L Potassium 4.2 (3.3-5.1) mmol/L Chloride 104 (96-108) mmol/L Carbon Dioxide 30 H (22-29) mmol/L Anion Gap 10 L (12-20) BUN 16 (9-16) mg/dL Creatinine 0.70 (0.5-1.4) mg/dL Estim Creat Clear Calc 76.5 Estimated GFR > 60 Random Glucose 90 (60-115) mg/dL Calcium 8.6 (8.4-10.2) mg/dL Magnesium 1.9 (1.6-2.6) mg/dL Total Bilirubin 0.1 (0.0-1.0) mg/dL AST 13 (5-31) U/L ALT 10 (0-31) U/L Alkaline Phosphatase 85 (39-117) U/L Troponin I High Sens 20.8 H (<3.5-17.0) ng/L Total Protein 6.6 (6.5-8.0) g/dL Albumin 3.7 (3.5-5.0) g/dL Lipase 28 (8-78) U/L Independent Interpretation I performed an independent interpretation of an: Plain X-Ray Interpretation: My interpretation patient's one-view chest x-ray is as follows, no acute infiltrates Radiology Impression Radiologist Impression: 1 view chest x-ray Comparison: CR/SR - XR CHEST 1V - 05/13/24 07:52 EST Findings: The lungs are clear. Heart size is normal. No acute fracture. IMPRESSION: 1. No acute findings. This document has been electronically signed by: Krystle Ziegler MD on 07/17/2024 06:52:40 External Record Review External record reviewed: Inpatient record Chronic Conditions Patient?s care impacted by: Diabetes and Other (COPD) Critical Care Time Critical Care Time Critical Care Time: Yes Total Critical Care Time: 45 Attestation: Critical Care: The patient was critically ill with a high probability of imminent or life threatening deterioration. I spent greater than 30 minutes of discontinuous time evaluating the patient,delivering critical care at the bedside, discussing and evaluating pertinent data with consultants. Critical care time does not include time spent performing separately billable procedures or teaching. Total time spent performing critical care was 45 minutes. Discharge Plan Discharge Patient Disposition: Admitted As Inpatient Prescriptions: No Action (DME) lancets [FreeStyle Lancets] 28 gauge misc See Rx Instructions .ROUTE .MEDSUPPLY Qty: 100 1RF Rx Instructions: Use to check blood sugar daily or if symptomatic hypo/hypergylcemia (DME) 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 meter [FreeStyle Lite Meter] Kit See Rx Instructions .ROUTE .MEDSUPPLY Qty: 1 0RF Rx Instructions: Use to check blood sugar daily or if symptomatic for hypo/hyperglycemia (DME) FreeStyle Lite Strips Strip See Rx Instructions .ROUTE .MEDSUPPLY Qty: 100 1RF Rx Instructions: Use to check blood sugar daily or if symptomatic hypo/hypergylcemia furosemide 20 mg tablet 20 mg PO DAILY Qty: 90 3RF aspirin 81 mg tablet,delayed release (DR/EC) 81 mg PO DAILY 90 Days Qty: 90 1RF theophylline 400 mg tablet extended release 24 hr 400 mg PO BID 90 Days Qty: 180 4RF sertraline 100 mg tablet 100 mg PO DAILY Qty: 90 0RF glipizide 5 mg tablet 5 mg PO DAILY Qty: 90 0RF albuterol sulfate [Ventolin HFA] 90 mcg/actuation HFA aerosol inhaler 2 puff inhalation Q6H PRN (Reason: for wheezing) Qty: 1 6RF Stiolto Respimat 2.5-2.5 mcg/actuation mist 2 puff INHALATION DAILY Qty: 4 6RF ibuprofen 800 mg tablet 800 mg PO BID PRN (Reason: pain) Qty: 60 0RF Rx Instructions: please use sparingly due to diabetes tizanidine 4 mg tablet 4 mg PO Q12H PRN (Reason: muscle spasm) 30 Days Qty: 60 0RF Rx Instructions: do not take concurrently with famotidine gabapentin 800 mg tablet 800 mg PO QID 30 Days Qty: 120 0RF acetaminophen 650 mg tablet extended release 650 mg PO Q12H PRN (Reason: pain) 30 Days Qty: 60 0RF nicotine 21 mg/24 hr Patch 24 Hour 1 patch TRANSDERMAL DAILY PRN (Reason: Nicotine Cravings) calcium carbonate-vitamin D3 500 mg-10 mcg (400 unit) tablet 1 tab PO DAILY ipratropium bromide 0.02 % solution 2.5 ml inhalation Q6H PRN (Reason: Wheezing) Qty: 150 0RF albuterol sulfate 2.5 mg /3 mL (0.083 %) solution for nebulization 2.5 mg inhalation Q4H PRN (Reason: Shortness Of Breath/Wheezing) cefuroxime axetil 500 mg Tablet 500 mg PO Q12H Qty: 8 0RF prednisone 20 mg tablet 40 mg PO DAILY Qty: 8 0RF ferrous sulfate 324 mg (65 mg iron) tablet,delayed release (DR/EC) 324 mg PO Q OTHER DAY Qty: 15 0RF (DME) mary anne Misc See Rx Instructions .Route Qty: 1 0RF Rx Instructions: As directed topiramate 25 mg tablet 25 mg PO BID Qty: 14 0RF dexlansoprazole [Dexilant] 60 mg capsule,biphase delayed releas 60 mg PO DAILY@0630 losartan 25 mg tablet 25 mg PO DAILY 90 Days Qty: 90 0RF atorvastatin 20 mg tablet 20 mg PO BEDTIME 90 Days Qty: 90 0RF Print Language: Hong Konger
[2024-07-17] MEDS: methylPREDNISolone Sod Succ 125 MG/2 ML VIAL IVPUSH (06:34)
[2024-07-17 06:36] LABS: Basophils Absolute Auto 0.1 X10*3/uL (0.0-0.2); Basophils Percent Auto 0.3 % (0-2); Eosinophils Absolute Auto 0.2 X10*3/uL (0.0-0.4); Hematocrit 35.4 % (37.0-47.0); Hemoglobin 10.5 g/dl (12.0-16.0); Imm Gran Abs Auto 0.07 X10*3/uL (0.00-0.03); Imm Gran Pct Auto 0.5 % (0.0-0.4); Lymphocytes Absolute Auto 4.8 X10*3/uL (1.2-4.9); Lymphocytes Percent Auto 31.3 % (20-40); MANUAL DIFF FLAG NO; Mean Corpuscular HGB Conc 29.7 g/dl (31.0-35.0); Mean Corpuscular Hemoglobin 22.8 pg (27.0-33.0); Mean Platelet Volume 8.8 fL (9.4-12.3); Monocytes Absolute Auto 1.2 X10*3/uL (0.1-1.2); Neutrophils Absolute Auto 9.1 x10*3/uL (2.0-8.3); Neutrophils Percent Auto 58.9 % (45-73); Platelet Count 485 X10*3/uL (160-400); Red Cell Distribution Width 18.1 % (11.0-16.0); White Blood Count 15.4 X10*3/uL (4.8-10.8)
[2024-07-17 06:37] LABS: Venous Blood Gas Refer to POC result
[2024-07-17 06:41] LABS: VBG Base Excess 8.5 mmol/L; VBG HCO3 33 mmol/L (22-26); VBG pCO2 46 mmHg; VBG pH 7.46 (7.32-7.43); VBG pO2 55 mmHg
[2024-07-17] MEDS: Albuterol Sulfate 7.5 MG, Albuterol/Iprat 2.5/0.5MG 3 ML 3 ML INHALE (06:42)
[2024-07-17 06:51] LABS: Alanine Aminotransferase 10 U/L (0-31); Albumin Level 3.7 g/dL (3.5-5.0); Alkaline Phosphatase 85 U/L (39-117); Anion Gap 10 (12-20); Aspartate Amino Transferase 13 U/L (5-31); Bilirubin Total 0.1 mg/dL (0.0-1.0); Blood Urea Nitrogen 16 mg/dL (9-16); Calcium 8.6 mg/dL (8.4-10.2); Carbon Dioxide 30 mmol/L (22-29); Chloride 104 mmol/L (96-108); Creatinine Clr Calc Pharmacy 76.5; Estimated Glomerular Filt Rate > 60; Glucose Random 90 mg/dL (60-115); Lipase 28 U/L (8-78); Magnesium 1.9 mg/dL (1.6-2.6); Potassium 4.2 mmol/L (3.3-5.1); Sodium 140 mmol/L (135-145); Total Protein 6.6 g/dL (6.5-8.0)
[2024-07-17 06:55] LABS: Troponin-I High Sensitivity 20.8 ng/L (<3.5-17.0)
--- NOTE | 2024-07-17 09:51 | PC.NURSE ---
Pt assisted off bedside commode and back into bed with side rails up.
--- NOTE | 2024-07-17 11:32 | P.HPHOSP_ITS ---
History of Present Illness Date of Service: 07/17/24 Attending physician on admission: Tom Herr Chief Complaint: SOB Pt is a 54-year-old female with a PMH significant for?COPD/asthma overlap, chronic hypoxic respiratory failure on 2L home O2, HENRY/ohs on nocturnal BiPAP, HTN, cwp-hlbwvci-dfqraqzpi type 2 diabetes, GERD, and cocaine use disorder who presents to the ED with?increased shortness of breath, nonproductive cough, and difficulty breathing since yesterday. Pt was recently discharged from the hospital 3 days prior on 07/14/2024 where she was treated for acute on chronic respiratory failure secondary to asthma/COPD exacerbation. Reports initially felt much better at home for the first two days after discharge. However yesterday began having increased SOB, WANG, and difficulty breathing and was unable to sleep last night. Pt has been using home inhalers and home nebulizer x4 without significant relief. Notes BiPAP machine suddenly stopped working properly 2 days ago. Denies fever and or chills, but has had nonproductive cough and chest tightness and abdominal pain associated with inspiration and cough. Pt reports she has not smoked or used cocaine since discharge. Of note, pt also reports over Thanksgiving she was intubated for 4 days at [facility] in [facility] for respiratory failure secondary to COVID infection and hospitalized for a total of 7 days. In the ED pt was tachypneic up to 27, hypertensive up to 143/70, and satting at 96% on 2 L NC. ABG consistent with respiratory alkalosis, otherwise labs were grossly unremarkable and around baseline for pt. Leukocytosis of 15.4, chronically elevated around baseline. Stable microcytic anemia of 10.5/35.4. No significant electrolyte abnormalities. Renal function baseline. Hepatic function WNL. Troponin elevated at 20.8, though chronically elevated and in line with previous. CXR showed no acute findings. EKG demonstrated sinus tachycardia with PACs, similar to previous. Pt was treated with Solu-Medrol, and DuoNebs. Pt will be admitted to the hospital for treatment and further evaluation of acute COPD exacerbation not alleviated by ED treatments. Review of Systems 2 Review of Systems: Negative except for that which is stated in the [facility] Medical History Chronic lung disease Hypoxic respiratory failure Nocturnal hypoxemia HENRY (obstructive sleep apnea) COPD (chronic obstructive pulmonary disease) Diabetes mellitus COPD exacerbation Crack cocaine use Hyperkalemia Metabolic acidosis Leukocytosis Chest discomfort Chronic renal failure, stage 2 (mild) SOB (shortness of breath) Asthma Smoker Rotator cuff tendonitis GERD (gastroesophageal reflux disease) Chronic idiopathic constipation Bustos's esophagus Depression High triglycerides Gastroparesis Carpal tunnel syndrome of right wrist Nausea & vomiting Hernia Acute and chronic respiratory failure, unspecified whether with hypoxia or hypercapnia HTN (hypertension) Obesity (BMI 30-39.9) Knee pain, bilateral Family History Father Heart disease HENRY (obstructive sleep apnea) Family history of breast cancer Mother Asthma Emphysema, unspecified Bronchitis Smoker Alcoholism Bone marrow disease Maternal Grandmother Diabetes Surgical History History of cholecystectomy (~1988) History of carpal tunnel release Hx of tubal ligation History of pubovaginal sling (~2015) History of umbilical hernia repair (~2001) Hx of section History of open reduction and internal fixation (ORIF) procedure History of esophagogastroduodenoscopy (EGD) Social History Household Members: Family Household Members Other:: sister Housing: House Are you a primary student career development specialist to a significant other at home: No Do you presently have visiting nurse or other home services: Yes Unable to assess alcohol history related to: Unknown Alcohol intake: former Comment: Sleeping Patient Tobacco Use Status: Current everyday Tobacco user Tobacco use type: Cigarette Cigarette Packs Per Day: 1 Cigarettes Per Day: 20.0 Years Smoked: 48 Smoked in Last 30 Days: Yes e-Cigarette/Vaping Use: Currently Using Second Hand Smoke Exposure: No Use of substances other than those prescribed or required for medical reasons: Yes Substance Use Type: Crack/Cocaine Advance Directives: Yes Advance Directives on File: Yes Advance Directives Date on File: 12/19/23 Do you have a plan to hurt others: No Plan Patient : No service: No Current occupational status: disabled 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 Meds Allergies Allergy/AdvReac Type Severity Reaction Status Date / Time doxycycline Allergy Severe Swelling Verified 07/17/24 06:36 varenicline [From CHANTIX] Allergy Severe ANAPHYLAXIS Verified 07/17/24 06:36 azithromycin Allergy Intermediate Rash Verified 07/17/24 06:36 barium sulfate Allergy Intermediate angioedema Verified 07/17/24 06:36 cetirizine Allergy Mild Rash Verified 07/17/24 06:36 famotidine Allergy Mild Rash Verified 07/17/24 06:36 linaclotide [Linzess] Allergy Mild Rash Verified 07/17/24 06:36 Home Medications ?Medication ?Instructions ?Recorded ?Confirmed ?Last Taken ?Type dexlansoprazole 60 mg 60 mg PO DAILY@0630 12/16/23 07/13/24 07/13/24 History capsule,biphase delayed release (Dexilant) nicotine 21 mg/24 hr daily 1 patch transdermal DAILY PRN 04/05/24 07/13/24 05/04/24 History transdermal patch Nicotine Cravings calcium 500 mg (as 1 tab PO DAILY 06/26/24 07/13/24 07/13/24 History carbonate)-vitamin D3 10 mcg (400 unit) tablet albuterol sulfate 2.5 mg/3 mL 2.5 mg inhalation Q4H PRN 07/13/24 07/13/24 Unknown History (0.083 %) solution for nebulization Shortness Of Breath/Wheezing Physical Exam 2 Vital Signs and Narrative: Vital Signs: Last Vital Signs Temp 98.3 F 07/17/24 11:28 Pulse 88 07/17/24 11:28 Resp 16 07/17/24 11:28 BP 143/70 H 07/17/24 11:28 Pulse Ox 96 07/17/24 11:28 O2 Del Method Nasal Cannula 07/17/24 11:28 O2 Flow Rate 2 07/17/24 11:28 BMI result Body Mass Index 31.3 General: AOx3, no acute distress Resp: Diffuse expiratory wheezing bilaterally CVS: S1, S2, RRR GI: +BS, NT, no distention Skin: Warm, dry Neuro: Cranial nerves II-XII grossly intact bilaterally. Motor grossly intact bilaterally Extremities: No edema Psych: Appropriate affect Results Labs 07/17/24 06:29 07/17/24 06:29 Labs: Laboratory Results - last 24 hr 07/17/24 07/17/24 06:29 06:35 MCV 77.0 L MCH 22.8 L MCHC 29.7 L RDW 18.1 H Plt Count 485 H MPV 8.8 L Immature Gran % (Auto) 0.5 H Neut % (Auto) 58.9 Lymph % (Auto) 31.3 [place] % (Auto) 8.0 Eos % (Auto) 1.0 Baso % (Auto) 0.3 Lymph # (Auto) 4.8 [place] # (Auto) 1.2 Eos # (Auto) 0.2 Baso # (Auto) 0.1 Abs Immat Gran (auto) 0.07 H Absolute Neuts (auto) 9.1 H Absolute Nucleated RBC 0.000 Nucleated RBC % (auto) 0.0 VBG pH 7.46 H VBG pCO2 46 VBG pO2 55 VBG HCO3 33 H VBG O2 Saturation 88.0 VBG Base Excess 8.5 Anion Gap 10 L Estim Creat Clear Calc 76.5 Estimated GFR > 60 Random Glucose 90 Calcium 8.6 Magnesium 1.9 Total Bilirubin 0.1 AST 13 ALT 10 Alkaline Phosphatase 85 Troponin I High Sens 20.8 H Total Protein 6.6 Albumin 3.7 Lipase 28 Assessment and Plan (1) Acute exacerbation of chronic obstructive airways disease: Status: Acute Plan Pt is a 54-year-old female with a PMH significant for?COPD/asthma overlap, chronic hypoxic respiratory failure on 2L home O2, HENRY/ohs on nocturnal BiPAP, HTN, luq-doffkax-epwotjntd type 2 diabetes, GERD, and cocaine use disorder who presents to the ED with?increased shortness of breath, nonproductive cough, and difficulty breathing since yesterday. Pt will be admitted to the hospital for treatment and further evaluation of acute asthma/COPD exacerbation not alleviated by ED treatments. Acute asthma/COPD exacerbation Pt recently discharged for the same 3 days prior Symptoms returned yesterday with SOB, WANG, and difficulty breathing Not alleviated by home inhalers/nebs, or ED treatment with steroids and breathing treatments No acute hypoxia, no acute sepsis Will treat with IV steroids, DuoNebs, guaifenesin Continue home 2L NC Monitor respiratory status HLD Continue statin HTN Continue losartan, furosemide Uyg-ulgdhaf-zqjygknhf type 2 diabetes Continue glipizide Will place on sliding scale insulin Diabetic diet Chronic pain Continue gabapentin, tizanidine Cocaine use disorder Continue topiramate Mood disorder Continue sertraline Full Code Attending:?Dr. Herr DVT Prophylaxis: Lovenox Pt will require a hospitalization of at least two nights for treatment of acute COPD exacerbation. Given patient's recent hospitalization for similar issues and multiple comorbidities,?pt is at significant risk for decompensation hospital level care for administration of IV steroids and breathing treatments. Quality Stroke Does the patient have a stroke diagnosis?: No VTE Prior VTE?: No VTE Risk Level:: Medical - moderate - high VTE Device Contraindication: Treatment Not Indicated VTE Drug Contraindication: N/A - Med Ordered
[2024-07-17 13:17] LABS: Glucose, Whole Blood 351 mg/dL (60-115)
[2024-07-17 14:02] LABS: Glucose, Whole Blood 385 mg/dL (60-115)
--- NOTE | 2024-07-17 14:03 | PC.NURSE ---
Pt.'s POCs elevated to upper 300s and no insulin ordered. Per IVANA Cota, sliding scale ordered and an additional 10U for now re: POC 385.
--- NOTE | 2024-07-17 14:17 | PHA.MEDREC ---
Addendum entered by Radha Parmar [facility] 07/17/24 15:20: Med rec was reviewed by [facility]. Addendum entered by Marleen Andrea 07/17/24 15:17: Spoke again with patient about her Losartan dose, in May she had filled 50mg tabs once daily and on Med Rec 25mg tabs were on confirmed on there; patient did confirmed on discharge on 06/26 with pharmacist at that time that she was taking 25mg daily. Patient confirmed she is now taking the Losartan 50mg tab once daily. Original Note: Pharmacy Consult ? Medication Reconciliation Pharmacy has completed the medication reconciliation. Spoke with patient and she was able to confirm her medications. She confirmed she started the Ceduroxime 500mg tab 1 every 12 hours for 4 days, Prednisone 20mg 2 daily regimen for 4 days and Topirimate 25mg tab 1 twice daily yesterday. She confirmed she is taking the Ferrous Sulfate 324mg tab every other day and confirmed she took it yesterday. She confirmed she took all her medications last yesterday.
[2024-07-17] MEDS: Insulin Lispro 100 UNIT/ML 3 ML VIAL 10 UNIT SUBCUT (14:19)
[2024-07-17] MEDS: Enoxaparin Sodium 40 MG/0.4 ML SYRINGE SUBCUT (14:19)
[2024-07-17 14:56] LABS: Troponin-I High Sensitivity 13.1 ng/L (<3.5-17.0)
--- NOTE | 2024-07-17 15:19 | PC.NURSE ---
Pt. is c/o 01/07 mid-sternal CP and SOB to this RN. States that the sx. have been happening for ~20 minutes. VS WNL other than BP is HTN. IVANA Cota notified.
--- NOTE | 2024-07-17 15:21 | PC.NURSE ---
Plan to order EKG and Troponin per PA
[2024-07-17 16:31] LABS: Glucose, Whole Blood 323 mg/dL (60-115)
[2024-07-17] MEDS: Furosemide 20 MG TABLET PO (16:52)
[2024-07-17] MEDS: cefuroxime axetiL 500 MG TABLET PO (16:52)
[2024-07-17] MEDS: methylPREDNISolone Sod Succ 40 MG/ML VIAL IVPUSH (16:52)
[2024-07-17] MEDS: Gabapentin 400 MG CAPSULE 800 MG PO ×2 (16:52→20:29)
[2024-07-17] MEDS: glipiZIDE 5 MG TABLET PO (16:52)
[2024-07-17] MEDS: Ketorolac Tromethamine 30 MG/ML VIAL IVPUSH (16:53)
[2024-07-17] MEDS: Insulin Lispro 100 UNIT/ML 3 ML VIAL SUBCUT (16:53)
[2024-07-17] MEDS: Aspirin Enteric Coated 81 MG TABLET.DR PO (16:53)
[2024-07-17] MEDS: Losartan Potassium 50 MG TABLET PO (16:53)
[2024-07-17] MEDS: Albuterol/Iprat 2.5/0.5MG 3 ML AMPUL.NEB INHALE (19:44)
[2024-07-17 20:22] LABS: Glucose, Whole Blood 129 mg/dL (60-115)
[2024-07-17] MEDS: Atorvastatin Calcium 20 MG TABLET PO (20:29)
[2024-07-17] MEDS: Topiramate 25 MG TABLET PO (20:29)
[2024-07-17] MEDS: 0.9 % Sodium Chloride Flush 3 ML SYRINGE IVFLUSH (20:29)
[2024-07-17] MEDS: Theophylline Anhydrous ER 400 MG TAB.ER.24H PO (20:29)
[2024-07-17 21:21] LABS: Influenza A PCR NEGATIVE (Negative); Influenza B PCR NEGATIVE (Negative); Resp Syncy Virus RNA Qual PCR NEGATIVE (Negative); SARS COV2 PCR INHOUSE NEGATIVE (Negative)
[2024-07-18 03:12] VITALS: BP 145/95; PULSE 78; RESP 17; TEMP 36.5; O2SAT 97
[2024-07-18] MEDS: cefuroxime axetiL 500 MG TABLET PO (05:28)
[2024-07-18] MEDS: methylPREDNISolone Sod Succ 40 MG/ML VIAL IVPUSH (05:28)
[2024-07-18] MEDS: Omeprazole 40 MG CAPSULE.DR PO (05:28)
[2024-07-18 07:36] VITALS: BP 158/94; PULSE 88; RESP 16; TEMP 36.1; O2SAT 96
--- NOTE | 2024-07-18 07:48 | P.PNIM_ITS ---
Subjective Subjective Date of Service: 07/18/24 Physical Exam 2 Vital Signs: Vital Signs: Last Vital Signs Temp 97 F 07/18/24 07:36 Pulse 88 07/18/24 07:36 Resp 16 07/18/24 07:36 BP 158/94 H 07/18/24 07:36 Pulse Ox 96 07/18/24 07:36 O2 Del Method Nasal Cannula 07/18/24 07:36 O2 Flow Rate 2 07/18/24 07:36 BMI result Body Mass Index 37.8 Objective Data Active Medications Acetaminophen (Acetaminophen 325 Mg Tablet) 650 mg PO Q6H PRN PRN Reason: Pain, Mild 1-3,fever,headache Albuterol/Ipratropium (Albuterol/Iprat 2.5/0.5mg 3 Ml Ampul.Neb) 3 ml INHALE RQ4H WHILE AWAKE PRN PRN Reason: Shortness of Breath/Wheezing Last Admin: 07/17/24 19:44 Dose: 3 ml Documented By: AALIYAH Aspirin (Aspirin Enteric Coated 81 Mg Tablet.) 81 mg PO DAILY [facility] Last Admin: 07/17/24 16:53 Dose: 81 mg Documented By: ROCCO Atorvastatin Calcium (Atorvastatin Calcium 20 Mg Tablet) 20 mg PO BEDTIME [facility] Last Admin: 07/17/24 20:29 Dose: 20 mg Documented By: PARISH Calcium Carbonate (Calcium Carbonate 750 Mg Tab.Chew) 750 mg PO Q4H PRN PRN Reason: Heartburn Calcium Carbonate/Cholecalciferol (Calcium + Vitamin D 250 Mg Tablet) 500 mg PO DAILY [facility] Cefuroxime Axetil (Cefuroxime Axetil 500 Mg Tablet) 500 mg PO Q12H [facility] Last Admin: 07/18/24 05:28 Dose: 500 mg Documented By: PARISH Enoxaparin Sodium (Enoxaparin Sodium 40 Mg/0.4 Ml Syringe) 40 mg SUBCUT Q24H [facility] Last Admin: 07/17/24 14:19 Dose: 40 mg Documented By: REZA Ferrous Sulfate (Ferrous Sulfate 324 Mg Tablet.) 324 mg PO Q2D [facility] Furosemide (Furosemide 20 Mg Tablet) 20 mg PO DAILY [facility]; Protocol Last Admin: 07/17/24 16:52 Dose: 20 mg Documented By: ROCCO Gabapentin (Gabapentin 400 Mg Capsule) 800 mg PO QID [facility] Last Admin: 07/17/24 20:29 Dose: 800 mg Documented By: PARISH Glipizide (Glipizide 5 Mg Tablet) 5 mg PO DAILY [facility] Last Admin: 07/17/24 16:52 Dose: 5 mg Documented By: ROCCO Glucose (Glucose Gel 15 Gm Gel..Gram.) 15 gm PO Q15M PRN; Protocol PRN Reason: per Hypoglycemia Standing Ord. Guaifenesin/Dextromethorphan (Guaifenesin Dm 200/20/10 Ml 10 Ml Syrup) 10 ml PO Q4H PRN PRN Reason: Cough Dextrose (D10) 250 mls @ 750 mls/hr IV Q15M PRN; Protocol PRN Reason: per Hypoglycemia Standing Ord. Ibuprofen (Ibuprofen 800 Mg Tablet) 800 mg PO BID PRN PRN Reason: Headache Insulin Human Lispro (Insulin Lispro 100 Unit/Ml 3 Ml Vial) 0 unit SUBCUT QIDACHS [facility]; Protocol Last Admin: 07/17/24 20:32 Dose: Not Given Documented By: PARISH Non-Admin Reason: No Insulin Coverage Losartan Potassium (Losartan Potassium 50 Mg Tablet) 50 mg PO DAILY [facility]; Protocol Last Admin: 07/17/24 16:53 Dose: 50 mg Documented By: ROCCO Magnesium Hydroxide (Milk Of Magnesia 30 Ml Oral.Susp) 30 ml PO DAILY PRN PRN Reason: Constipation Melatonin (Melatonin 3 Mg Tablet) 6 mg PO BEDTIME PRN PRN Reason: Insomnia Methylprednisolone Sodium Succinate (Methylprednisolone Sod Succ 40 Mg/Ml Vial) 40 mg IVPUSH Q12H [facility] Last Admin: 07/18/24 05:28 Dose: 40 mg Documented By: PARISH Omeprazole (Omeprazole 40 Mg Capsule.Dr) 40 mg PO DAILY@0630 [facility] Last Admin: 07/18/24 05:28 Dose: 40 mg Documented By: PARISH Ondansetron HCl (Ondansetron Hcl 4 Mg/2 Ml Vial) 4 mg IVPUSH Q8H PRN PRN Reason: Nausea and Vomiting Sertraline HCl (Sertraline Hcl 100 Mg Tablet) 100 mg PO DAILY [facility] Sodium Chloride (0.9 % Sodium Chloride Flush 3 Ml Syringe) 3 ml IVFLUSH QSHIFT [facility] Last Admin: 07/17/24 20:29 Dose: 3 ml Documented By: PARISH Theophylline (Theophylline Anhydrous Er 400 Mg Tab.Er.24h) 400 mg PO BID [facility] Last Admin: 07/17/24 20:29 Dose: 400 mg Documented By: PARISH Tizanidine HCl (Tizanidine Hcl 4 Mg Tablet) 4 mg PO Q12H PRN PRN Reason: muscle spasm Topiramate (Topiramate 25 Mg Tablet) 25 mg PO BID [facility] Last Admin: 07/17/24 20:29 Dose: 25 mg Documented By: PARISH Labs 07/17/24 06:29 07/17/24 06:29 Labs: Laboratory Results - last 24 hr 07/17/24 07/17/24 07/17/24 13:13 13:58 14:20 POC Glucose 351 H* 385 H* Troponin I High Sens 13.1 Influenza Type A (PCR) Influenza Type B (PCR) RSV RNA Qual (PCR) SARS-CoV-2 RNA (RT-PCR) 07/17/24 07/17/24 07/17/24 16:20 20:00 20:20 POC Glucose 323 H 129 H Troponin I High Sens Influenza Type A (PCR) NEGATIVE Influenza Type B (PCR) NEGATIVE RSV RNA Qual (PCR) NEGATIVE SARS-CoV-2 RNA (RT-PCR) NEGATIVE Assessment and Plan Plan 54-year-old female with a PMH significant for?COPD/asthma overlap, chronic hypoxic respiratory failure on 2L home O2, HENRY/ohs on nocturnal BiPAP, HTN, den-xaauott-eyyzudndx type 2 diabetes, GERD, and cocaine use disorder who presents to the ED with?increased shortness of breath, nonproductive cough, and difficulty breathing since yesterday. Pt will be admitted to the hospital for treatment and further evaluation of acute asthma/COPD exacerbation not alleviated by ED treatments. Acute asthma/COPD exacerbation Pt recently discharged for the same 3 days prior Symptoms returned yesterday with SOB, WANG, and difficulty breathing Not alleviated by home inhalers/nebs, or ED treatment with steroids and breathing treatments No acute hypoxia, no acute sepsis Will treat with IV steroids, DuoNebs, guaifenesin Continue home 2L NC Monitor respiratory status HLD Continue statin HTN Continue losartan, furosemide Byv-icodqqi-ladposbhm type 2 diabetes Continue glipizide Will place on sliding scale insulin Diabetic diet Chronic pain Continue gabapentin, tizanidine Cocaine use disorder Continue topiramate Mood disorder Continue sertraline Full Code DVT Prophylaxis: Lovenox Pt will require a hospitalization of at least two nights for treatment of acute COPD exacerbation. Given patient's recent hospitalization for similar issues and multiple comorbidities,?pt is at significant risk for decompensation hospital level care for administration of IV steroids and breathing treatments. Quality Stroke Does the patient have a stroke diagnosis?: No VTE Prior VTE?: No VTE Risk Level:: Medical - moderate - high VTE Device Contraindication: Treatment Not Indicated VTE Drug Contraindication: N/A - Med Ordered
[2024-07-18 08:07] LABS: Glucose, Whole Blood 119 mg/dL (60-115)
[2024-07-18 08:40] VITALS: BP 158/94
[2024-07-18] MEDS: Theophylline Anhydrous ER 400 MG TAB.ER.24H PO (08:40)
[2024-07-18] MEDS: Sertraline HCL 100 MG TABLET PO (08:40)
[2024-07-18] MEDS: Topiramate 25 MG TABLET PO (08:40)
[2024-07-18] MEDS: Losartan Potassium 50 MG TABLET PO (08:40)
[2024-07-18 08:41] VITALS: BP 158/94
[2024-07-18] MEDS: Furosemide 20 MG TABLET PO (08:41)
[2024-07-18] MEDS: Calcium + Vitamin D 250 MG TABLET 500 MG PO (08:41)
[2024-07-18] MEDS: Gabapentin 400 MG CAPSULE 800 MG PO ×2 (08:41→12:08)
[2024-07-18] MEDS: Aspirin Enteric Coated 81 MG TABLET.DR PO (08:41)
[2024-07-18] MEDS: 0.9 % Sodium Chloride Flush 3 ML SYRINGE IVFLUSH (08:41)
[2024-07-18] MEDS: glipiZIDE 5 MG TABLET PO (08:41)
[2024-07-18] MEDS: Ferrous Sulfate 324 MG TABLET.DR PO (08:54)
[2024-07-18] MEDS: guaiFENesin DM 200/20/10 ML 10 ML SYRUP PO (08:54)
[2024-07-18] MEDS: Albuterol/Iprat 2.5/0.5MG 3 ML AMPUL.NEB INHALE (09:08)
[2024-07-18 09:09] VITALS: PULSE 88; RESP 16; O2SAT 94
--- NOTE | 2024-07-18 10:29 | MHC.CM.PN ---
Addendum entered by Aleyda Cheatham 07/18/24 12:34: PT REPORTS SHE CANNOT GET A RIDE AND WOULD LIKE A LYFT CM OFFERED BLS TRANSPORT SHE IS SUPPOSED TO BE WEARING O2 21/01, HOWEVER PT STATES SHE CAN GO WITHOUT IT AND DOES NOT USE IT FOR SHORT DISTANCES PT STATES SHE DOES NOT WANT TO WAIT FOR BLS TRANSPORT CM OFFERED TO CONTACT RT TO DETERMINE IF SHE CAN BORROW A PORTABLE TANK FOR THE RIDE HOME, PT DECLINES, AGAIN STATING SHE DOES NOT NEED IT LYFT TRANSPORT REQUESTED AND RIDE COMPLETED AT 1232 HOURS Original Note: PT REPORTS SHE LIVES WITH HER SISTER AND HAS [employer] PT HAS A WALKER, WHEEL CHAIR AND A CPAP/HOME O2 FROM [facility] HCP ON FILE PCP: DALJIT HAINES PT WILL DC HOME TODAY WITH RESUMPTION OF [employer] VIA PRIVATE TRANSPORT
--- NOTE | 2024-07-18 11:15 | PM.DS ---
DS: Providers Provider Date of Service: 07/18/24 Date of admission: 07/17/24 12:29 Date of discharge: 07/18/24 Primary care physician: Unknown Physician DS: Diagnosis Discharge Diagnosis (1) Acute exacerbation of chronic obstructive airways disease: Status: Acute DS: Summary Hospital Course Hospital Course: History of presenting illness: Date of Service: 07/17/24 Attending physician on admission: Tom Herr Chief Complaint: SOB Pt is a 54-year-old female with a PMH significant for?COPD/asthma overlap, chronic hypoxic respiratory failure on 2L home O2, HENRY/ohs on nocturnal BiPAP, HTN, wgz-dafehbq-blwurbisc type 2 diabetes, GERD, and cocaine use disorder who presents to the ED with?increased shortness of breath, nonproductive cough, and difficulty breathing since yesterday. Pt was recently discharged from the hospital 3 days prior on 07/14/2024 where she was treated for acute on chronic respiratory failure secondary to asthma/COPD exacerbation. Reports initially felt much better at home for the first two days after discharge. However yesterday began having increased SOB, WANG, and difficulty breathing and was unable to sleep last night. Pt has been using home inhalers and home nebulizer x4 without significant relief. Notes BiPAP machine suddenly stopped working properly 2 days ago. Denies fever and or chills, but has had nonproductive cough and chest tightness and abdominal pain associated with inspiration and cough. Pt reports she has not smoked or used cocaine since discharge. Of note, pt also reports over Thanksgiving she was intubated for 4 days at [facility] in [facility] for respiratory failure secondary to COVID infection and hospitalized for a total of 7 days. In the ED pt was tachypneic up to 27, hypertensive up to 143/70, and satting at 96% on 2 L NC. ABG consistent with respiratory alkalosis, otherwise labs were grossly unremarkable and around baseline for pt. Leukocytosis of 15.4, chronically elevated around baseline. Stable microcytic anemia of 10.5/35.4. No significant electrolyte abnormalities. Renal function baseline. Hepatic function WNL. Troponin elevated at 20.8, though chronically elevated and in line with previous. CXR showed no acute findings. EKG demonstrated sinus tachycardia with PACs, similar to previous. Pt was treated with Solu-Medrol, and DuoNebs. Pt will be admitted to the hospital for treatment and further evaluation of acute COPD exacerbation not alleviated by ED treatments. Hospital course: 54-year-old female with a PMH significant for?COPD/asthma overlap, chronic hypoxic respiratory failure on 2L home O2, HENRY/ohs on nocturnal BiPAP, HTN, nkw-efqkrwc-rgsovsvhl type 2 diabetes, GERD, and cocaine use disorder who presents to the ED with?increased shortness of breath, nonproductive cough, and difficulty breathing since yesterday, patient was recently discharged from [facility] and was treated for same as per patient her symptoms got worsened due due to [place] humidity, patient was readmitted due to following medical issues . Acute asthma/COPD exacerbation, patient admitted to medical floor and treated with IV steroids updraft treatment and cough medication and was continued on home oxygen 2-3 L patient responded well to above treatment this morning patient seems to be at baseline eager to be discharged home, her sister clean the house and her daughter will arrange for humidifier she has been strongly advised to abstain from cocaine use a prescription of Topamax has been sent to her pharmacy since she ran out of her script recommend to continue previously prescribed dose of steroids and antibiotics. HLD Continue statin HTN Continue losartan, furosemide Xxb-rrdlnvf-hdewjvzid type 2 diabetes Continue glipizide and follow diabetic diet Chronic pain Continue gabapentin, tizanidine Cocaine use disorder Continue topiramate, script sent to pharmacy Mood disorder Continue sertraline Time Attestation Discharge Coordination Time (in mins): 38 Quality: Safe Use of Opioids Does Pt have an Active Cancer Diagnosis on the Problem List?: No Quality: Stroke Does the patient have a stroke diagnosis?: No Physical Exam Vital Signs: Vital Signs: Last Vital Signs Temp 97 F 07/18/24 07:36 Pulse 88 07/18/24 09:09 Resp 16 07/18/24 09:09 BP 158/94 H 07/18/24 08:41 Pulse Ox 96 07/18/24 07:36 O2 Del Method Nasal Cannula 07/18/24 07:36 O2 Flow Rate 2 07/18/24 07:36 BMI result Body Mass Index 37.8 Const: Other: General: AOx3, no acute distress No JVD Resp: Lungs clear to auscultation good air entry, no wheeze, no crackles CVS: S1, S2, RRR GI: +BS, NT, no distention Skin: Warm, dry Neuro: Cranial nerves II-XII grossly intact bilaterally. Motor grossly intact bilaterally Extremities: No edema Psych: Appropriate affect DS: Data Data Completed and Pending Completed studies during hospitalization [Text1]: Procedures Assistance with Respiratory Ventilation, Less than 24 Consecutive Hours, Continuous Positive Airway Pressure (07/13/24) Insertion of Endotracheal Airway into Trachea, Via Natural or Artificial Opening (11/03/20) Insertion of Infusion Device into Superior Vena Cava, Percutaneous Approach (11/03/20) Respiratory Ventilation, Less than 24 Consecutive Hours (11/03/20) Labs on day of discharge: Laboratory Results - last 24 hr 07/17/24 07/17/24 07/17/24 13:13 13:58 14:20 POC Glucose 351 H* 385 H* Troponin I High Sens 13.1 Influenza Type A (PCR) Influenza Type B (PCR) RSV RNA Qual (PCR) SARS-CoV-2 RNA (RT-PCR) 07/17/24 07/17/24 07/17/24 16:20 20:00 20:20 POC Glucose 323 H 129 H Troponin I High Sens Influenza Type A (PCR) NEGATIVE Influenza Type B (PCR) NEGATIVE RSV RNA Qual (PCR) NEGATIVE SARS-CoV-2 RNA (RT-PCR) NEGATIVE 07/18/24 07:39 POC Glucose 119 H Troponin I High Sens Influenza Type A (PCR) Influenza Type B (PCR) RSV RNA Qual (PCR) SARS-CoV-2 RNA (RT-PCR) Discharge Plan Discharge Anticipated Discharge Date/Time: 07/18/24 11:03 Patient Disposition: Home, Self-Care Discharge Diagnosis: Acute exacerbation of COPD/asthma Referrals: Physician,Unknown J [Primary Care Provider] - 1 Week Discharge Medications: Continued (DME) lancets [FreeStyle Lancets] 28 gauge misc See Rx Instructions .ROUTE .MEDSUPPLY Qty: 100 1RF Rx Instructions: Use to check blood sugar daily or if symptomatic hypo/hypergylcemia (DME) 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 meter [FreeStyle Lite Meter] Kit See Rx Instructions .ROUTE .MEDSUPPLY Qty: 1 0RF Rx Instructions: Use to check blood sugar daily or if symptomatic for hypo/hyperglycemia (DME) FreeStyle Lite Strips Strip See Rx Instructions .ROUTE .MEDSUPPLY Qty: 100 1RF Rx Instructions: Use to check blood sugar daily or if symptomatic hypo/hypergylcemia furosemide 20 mg tablet 20 mg PO DAILY Qty: 90 3RF aspirin 81 mg tablet,delayed release (DR/EC) 81 mg PO DAILY 90 Days Qty: 90 1RF theophylline 400 mg tablet extended release 24 hr 400 mg PO BID 90 Days Qty: 180 4RF sertraline 100 mg tablet 100 mg PO DAILY Qty: 90 0RF glipizide 5 mg tablet 5 mg PO DAILY Qty: 90 0RF albuterol sulfate [Ventolin HFA] 90 mcg/actuation HFA aerosol inhaler 2 puff inhalation Q6H PRN (Reason: for wheezing) Qty: 1 6RF Stiolto Respimat 2.5-2.5 mcg/actuation mist 2 puff INHALATION DAILY Qty: 4 6RF tizanidine 4 mg tablet 4 mg PO Q12H PRN (Reason: muscle spasm) 30 Days Qty: 60 0RF Rx Instructions: do not take concurrently with famotidine gabapentin 800 mg tablet 800 mg PO QID 30 Days Qty: 120 0RF acetaminophen 650 mg tablet extended release 650 mg PO Q12H PRN (Reason: pain) 30 Days Qty: 60 0RF calcium carbonate-vitamin D3 500 mg-10 mcg (400 unit) tablet 1 tab PO DAILY ipratropium bromide 0.02 % solution 2.5 ml inhalation Q6H PRN (Reason: Wheezing) Qty: 150 0RF albuterol sulfate 2.5 mg /3 mL (0.083 %) solution for nebulization 2.5 mg inhalation Q4H PRN (Reason: Shortness Of Breath/Wheezing) cefuroxime axetil 500 mg Tablet 500 mg PO Q12H Qty: 8 0RF prednisone 20 mg tablet 40 mg PO DAILY Qty: 8 0RF ferrous sulfate 324 mg (65 mg iron) tablet,delayed release (DR/EC) 324 mg PO Q OTHER DAY Qty: 15 0RF (NATHALIE) mary anne Seec See Rx Instructions .Route Qty: 1 0RF Rx Instructions: As directed dexlansoprazole [Dexilant] 60 mg capsule,biphase delayed releas 60 mg PO DAILY@0630 ibuprofen 800 mg tablet 800 mg PO BID PRN (Reason: Headache) Rx Instructions: please use sparingly due to diabetes losartan 50 mg tablet 50 mg PO DAILY topiramate 25 mg tablet 25 mg PO BID Qty: 60 0RF atorvastatin 20 mg tablet 20 mg PO BEDTIME 90 Days Qty: 90 0RF Discharge Orders: Discharge Order (Routine); Ordered 07/18/24 Ordered By: Tom Herr Diet: Advance to usual diet Activity on Discharge: As tolerated Stand Alone Forms: Patient Portal Discharge page Print Language: Armenian Care Plan Goals: Recently discharged home for COPD exacerbation recommend to finish course of prednisone and antibiotic as previously prescribed This episode as per patient due to dust and humidity Advised to use humidifier Script for topamax given Health Concerns: Continue all home medications as before Plan of Treatment: Outpatient follow-up with primary care physician call for appointment Assessment: As above
[2024-07-18 11:29] LABS: Glucose, Whole Blood 224 mg/dL (60-115)
[2024-07-18] MEDS: Enoxaparin Sodium 40 MG/0.4 ML SYRINGE SUBCUT (12:08)
[2024-07-18] MEDS: Insulin Lispro 100 UNIT/ML 3 ML VIAL SUBCUT (12:08)
--- NOTE | 2024-07-18 12:25 | PC.NURSE ---
Pt refusing VS stating she wants to leave immediately with [employer].
== END 2024-07-18 12:23 | disposition home or self-care (01) | DRG 140 ==
LOC: HO.ED 09:22 → HO.EDOVER 12:30 → HO.S3 14:47
PROVIDERS: Admitting Provider Student in an Organized Health Care Education/Training Program; Emergency Provider Emergency Medicine Emergency Medical Services; Visit Provider Hospitalist
DX: J44.1 Chronic obstructive pulmonary disease with (acute) exacerbation (principal); E66.2 Morbid (severe) obesity with alveolar hypoventilation; Z99.81 Dependence on supplemental oxygen; J96.11 Chronic respiratory failure with hypoxia; Z68.37 Body mass index [BMI] 37.0-37.9, adult; G89.29 Other chronic pain; E78.5 Hyperlipidemia, unspecified; F14.90 Cocaine use, unspecified, uncomplicated; F39 Unspecified mood [affective] disorder; J45.901 Unspecified asthma with (acute) exacerbation; Z20.822 Contact with and (suspected) exposure to COVID-19; Z79.82 Long term (current) use of aspirin; Z79.84 Long term (current) use of oral hypoglycemic drugs; Z79.899 Other long term (current) drug therapy
CPT/HCPCS: 0241U; 36415; 71045; 80053; 82803; 82947; 83690; 83735; 84484; 85025; 93005; 94640; 94660; 99285; J1650; J1885; J2919

== ENCOUNTER → 2024-07-17 06:16 | Outpatient (BNV) | payer OTHER, SELFPAY | PROVIDERS: Emergency Provider Emergency Medicine Emergency Medical Services; Visit Provider Radiology Diagnostic Radiology | DX: R06.02 Shortness of breath (principal) | CPT/HCPCS: 71045 ==

== ENCOUNTER → 2024-07-17 06:26 | Outpatient (BNV) | payer OTHER, SELFPAY | PROVIDERS: Admitting Provider Student in an Organized Health Care Education/Training Program; Emergency Provider Emergency Medicine Emergency Medical Services; Visit Provider Internal Medicine Cardiovascular Disease | DX: R94.31 Abnormal electrocardiogram [ECG] [EKG] (principal) | CPT/HCPCS: 93010 ==

== ENCOUNTER → 2024-07-17 12:29 | Outpatient (BNV) | payer OTHER, SELFPAY | PROVIDERS: Admitting Provider Student in an Organized Health Care Education/Training Program; Emergency Provider Emergency Medicine Emergency Medical Services; Visit Provider Student in an Organized Health Care Education/Training Program | DX: J44.1 Chronic obstructive pulmonary disease with (acute) exacerbation (principal) | CPT/HCPCS: 99222; 99239 ==

== ENCOUNTER 2024-07-22 07:15 | Outpatient (AMB) | payer OTHER, SELFPAY ==
--- NOTE | 2024-07-22 07:38 | A.OFFVIS_ITS ---
Intake Visit Reasons: ER f/up Allergies doxycycline Allergy (Severe, Verified 07/17/24 06:36) Swelling varenicline [From CHANTIX] Allergy (Severe, Verified 07/17/24 06:36) ANAPHYLAXIS azithromycin Allergy (Intermediate, Verified 07/17/24 06:36) Rash barium sulfate Allergy (Intermediate, Verified 07/17/24 06:36) angioedema cetirizine Allergy (Mild, Verified 07/17/24 06:36) Rash famotidine Allergy (Mild, Verified 07/17/24 06:36) Rash linaclotide [Linzess] Allergy (Mild, Verified 07/17/24 06:36) Rash Medication List - Last Reconciled 07/22/24 by LORIE Lowe- acetaminophen ER 650 mg PO Q12H PRN 30 days albuterol sulfate 2.5 mg inhalation Q4H PRN albuterol sulfate 90 mcg/actuation (Ventolin HFA) 2 puffs inhalation Q6H PRN aspirin 81 mg PO DAILY 90 days atorvastatin 20 mg PO BEDTIME 90 days blood sugar diagnostic (FreeStyle Lite Strips) Use to check blood sugar daily or if symptomatic hypo/hypergylcemia 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 meter (FreeStyle Lite Meter kit) Use to check blood sugar daily or if symptomatic for hypo/hyperglycemia calcium carbonate-vitamin D3 500 mg-10 mcg (400 unit) 1 tab PO DAILY cefuroxime axetil 500 mg PO Q12H dexlansoprazole (Dexilant) 60 mg PO DAILY@0630 ferrous sulfate 324 mg PO Q OTHER DAY furosemide 20 mg PO DAILY gabapentin 800 mg PO QID 30 days glipizide 5 mg PO DAILY ibuprofen 800 mg PO BID PRN ipratropium-albuterol 0.5 mg-3 mg(2.5 mg base)/3 mL 3 mL inhalation TID 30 days lancets (FreeStyle Lancets) Use to check blood sugar daily or if symptomatic hypo/hypergylcemia losartan 50 mg PO DAILY prednisone 40 mg (2 x 20 mg) PO DAILY sertraline 150 mg (1.5 x 100 mg) PO DAILY 90 days theophylline ER 400 mg PO BID 90 days tiotropium-olodaterol 2.5-2.5 mcg/actuation (Stiolto Respimat) 2 puffs inhalation DAILY tizanidine 4 mg PO Q12H PRN 30 days topiramate 25 mg PO BID walker As directed HPI HPI ER f/up: Details: History of Present Illness The patient is a 54-year-old female presenting with concerns following her recent hospital discharge due to shortness of breath. She has a long-standing history of Chronic Obstructive Pulmonary Disease (COPD) and Asthma Overlap Syndrome. Additionally, she experiences chronic hypoxic respiratory failure, requiring 2 to 3 liters of supplemental oxygen at home, and utilizes BiPAP therapy at night. During a previous episode, the patient's BiPAP malfunctioned, exacerbating her respiratory distress. She presented to the Emergency Department on the of the month due to increased shortness of breath and had a past medical history of intubation for four days around [facility], following a respiratory failure associated with a COVID-19 infection. She experienced a seven-day hospitalization at a different facility in [facility], where her electrocardiograms were stable, resembling previous results, and she was treated with DuoNebs and Medrol. The recent hospitalization screened negative for any viral infections, yet the patient continues to experience significant wheezing and persistent shortness of breath. Additionally, she has Type 2 Diabetes Mellitus and a history of cocaine use disorder, for which she is receiving treatment with the medication Topiramate. She expresses progressive cessation of cocaine usage and reduction in smoking frequency. She currently resides with her sister, with plans to move in with her daughter, her primary caregiving environmental assistant, at a new address soon. Her prior living conditions were changed due to mold issues. The patient mentions that she uses a humidifier at home with some relief noted. Review of Systems - Respiratory: Reports significant wheezing. - Psychological: Reports anxiety. -denies any si or hi -denies any cp, fevers, chills, n/v Plan - Chronic Obstructive Pulmonary Disease COPD) and Asthma Overlap Syndrome: Prescribe a combination nebulizer medication containing DuoNebs to manage symptoms. Encourage her to follow up with her furniture and bedding inspector. - Chronic Hypoxic Respiratory Failure: Continue home oxygen therapy at 2 to 3 liters per minute. Reinforce the use of BiPAP at night to manage her condition. - Type 2 Diabetes Mellitus: No management changes discussed in this visit. - Cocaine Use Disorder: Continue Topiramate and maintain engagement with automotive sales specialist care. Encourage abstinence from cocaine usage. - Anxiety Disorder: Increase Sertraline dosage from 100 mg to 150 mg daily for i mproved symptom management. Patient was informed and verbally consented to the use of an ambient scribe for clinic note documentation during this visit. Discussion Notes During the visit, I thoroughly discussed the management plan, emphasizing the importance of adherence to prescribed therapies and follow-up with her furniture and bedding inspector to evaluate her respiratory condition further. I have increased the Sertraline dosage to address her heightened anxiety. Risks and benefits of continuing her current medication regimen, including the transition plan for anxiolytic therapy and the significance of maintaining oxygen therapy and BiPAP use, were explained. The patient was informed about the importance of monitoring her respiratory symptoms closely and advised on potential warning signs requiring emergent medical evaluation. Discussions included the benefits of her current addiction treatment plan and the possibility of improved respiratory health through cessation of smoking. Patient Instructions - Use combination nebulizer medicine as prescribed for wheezing. - Continue using oxygen at 2 to 3 liters per minute and BiPAP at night. - Follow up with your furniture and bedding inspector soon. - Continue taking Topiramate and avoid cocaine use entirely. - Increase Sertraline dose to 150 mg once daily. - Monitor respiratory symptoms; seek immediate help if condition worsens. - Maintain smoking cessation efforts; use a humidifier to improve air quality. [facility] Medical History Chronic lung disease Hypoxic respiratory failure Nocturnal hypoxemia HENRY (obstructive sleep apnea) COPD (chronic obstructive pulmonary disease) Diabetes mellitus COPD exacerbation Crack cocaine use Hyperkalemia Metabolic acidosis Leukocytosis Chest discomfort Chronic renal failure, stage 2 (mild) SOB (shortness of breath) Asthma Smoker Rotator cuff tendonitis GERD (gastroesophageal reflux disease) Chronic idiopathic constipation Bustos's esophagus Depression High triglycerides Gastroparesis Carpal tunnel syndrome of right wrist Nausea & vomiting Hernia Acute and chronic respiratory failure, unspecified whether with hypoxia or hypercapnia HTN (hypertension) Obesity (BMI 30-39.9) Knee pain, bilateral Surgical History History of cholecystectomy (~1988) History of carpal tunnel release Hx of tubal ligation History of pubovaginal sling (~2015) History of umbilical hernia repair (~2001) Hx of section History of open reduction and internal fixation (ORIF) procedure History of esophagogastroduodenoscopy (EGD) Family History Father Heart disease HENRY (obstructive sleep apnea) Family history of breast cancer Mother Asthma Emphysema, unspecified Bronchitis Smoker Alcoholism Bone marrow disease Maternal Grandmother Diabetes Social History Household Members: Family Household Members Other:: sister Housing: House Are you a primary managed care analyst to a significant other at home: No Do you presently have visiting nurse or other home services: No Unable to assess alcohol history related to: Unknown Alcohol intake: former Comment: Sleeping Patient Tobacco Use Status: Current everyday Tobacco user Tobacco use type: Cigarette Cigarette Packs Per Day: 1 Cigarettes Per Day: 20.0 Years Smoked: 48 e-Cigarette/Vaping Use: Currently Using Second Hand Smoke Exposure: No Substance Use Type: Crack/Cocaine Advance Directives Date on File: 12/19/23 service: No Current occupational status: disabled 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 Telehealth Telehealth Telehealth Platform: [employer] Location of provider rendering services: practice address Location of patient: address on file Patient Identification confirmed using: Name, : Yes Telehealth method: video Patient verbally consented to treatment: Yes Patient verbally consented to billing insurance company: Yes Patient informed of any privacy concerns related to visit: Yes Minutes spent on Phone/Video with Pt.: 20 Assessment & Plan Assessment & Plan (1) Cocaine use disorder: Code(s): F14.10 - Cocaine abuse, uncomplicated Category: Medical (2) Chronic lung disease: Code(s): J98.4 - Other disorders of lung Category: Medical (3) Acute and chronic respiratory failure, unspecified whether with hypoxia or hypercapnia: Code(s): J96.20 - Acute and chronic respiratory failure, unspecified whether with hypoxia or hypercapnia Category: Medical (4) HENRY (obstructive sleep apnea): Code(s): G47.33 - Obstructive sleep apnea (adult) (pediatric) Category: Medical (5) Smoker: Code(s): F17.200 - Nicotine dependence, unspecified, uncomplicated Category: Social Hx Plan . Medications: Changed From sertraline 100 mg PO DAILY 90 tabs 0RF To sertraline 150 mg (1.5 x 100 mg) PO DAILY 135 tabs 0RF 90 days Refilled ipratropium-albuterol 0.5 mg-3 mg(2.5 mg base)/3 mL 3 mL inhalation TID 270 mL 6RF 30 days prednisone 40 mg (2 x 20 mg) PO DAILY 8 tabs 0RF Discontinued ipratropium bromide Discontinued Reason: Doctor's Order 2.5 mL inhalation Q6H PRN 150 mL 0RF Wheezing Coding Level of Care Code Tele Est Pt Level 4 (05908) Diagnoses Cocaine use disorder F14.10 Chronic lung disease J98.4 Acute and chronic respiratory failure, unspecified whether with hypoxia or hypercapnia J96.20 HENRY (obstructive sleep apnea) G47.33 Smoker F17.200
== END 2024-07-22 08:25 | disposition home or self-care (01) ==
LOC: HO.HMCC 07:15
PROVIDERS: Visit Provider Nurse Practitioner Family
DX: J96.20 Acute and chronic respiratory failure, unspecified whether with hypoxia or hypercapnia (principal); F14.10 Cocaine abuse, uncomplicated; J98.4 Other disorders of lung; G47.33 Obstructive sleep apnea (adult) (pediatric); F17.200 Nicotine dependence, unspecified, uncomplicated

== ENCOUNTER 2024-08-01 09:18 | Inpatient (IN) | payer OTHER, SELFPAY ==
[2024-08-01] VITALS (9 sets, daily range): BP systolic 113–139; BP diastolic 74–80; PULSE 80–111; RESP 16–20; TEMP 36.3–37.1; O2SAT 93–100; BMI 32.4; BMI 33.6
--- NOTE | ~2024-08-01 | XR_ITS ---
CLINICAL HISTORY: SOB 1 view chest x-ray. Comparison: CR - XR CHEST 1V - 07/17/24 06:29 EST CR/SR - XR CHEST 1V - 07/13/24 14:13 EST Findings: Normal lung volumes. Mild interstitial and bronchial wall thickening. No pneumothorax or pleural effusion. Borderlinecardiomegaly. No midline shift or tracheal deviation. No acute fracture. Impression: 1. Borderline cardiomegaly. Mild interstitial and bronchial wall thickening. This document has been electronically signed by: Hugo Little MD on 08/01/2024 10:41:00
[2024-08-01 10:27] LABS: MANUAL DIFF FLAG NO
[2024-08-01 10:29] LABS: Basophils Absolute Auto 0.1 X10*3/uL (0.0-0.2); Basophils Percent Auto 0.3 % (0-2); Eosinophils Absolute Auto 0.2 X10*3/uL (0.0-0.4); Hematocrit 44.6 % (37.0-47.0); Hemoglobin 13.1 g/dl (12.0-16.0); Imm Gran Abs Auto 0.06 X10*3/uL (0.00-0.03); Imm Gran Pct Auto 0.4 % (0.0-0.4); Lymphocytes Absolute Auto 1.4 X10*3/uL (1.2-4.9); Lymphocytes Percent Auto 8.6 % (20-40); Mean Corpuscular HGB Conc 29.4 g/dl (31.0-35.0); Mean Corpuscular Hemoglobin 22.9 pg (27.0-33.0); Monocytes Absolute Auto 1.1 X10*3/uL (0.1-1.2); Monocytes Percent Auto 6.9 % (2-11); Neutrophils Absolute Auto 13.4 x10*3/uL (2.0-8.3); Neutrophils Percent Auto 82.8 % (45-73); Platelet Count 390 X10*3/uL (160-400); Red Blood Count 5.72 X10*6/uL (4.20-5.50); Red Cell Distribution Width 19.7 % (11.0-16.0); White Blood Count 16.1 X10*3/uL (4.8-10.8)
[2024-08-01 10:41] LABS: Alanine Aminotransferase 15 U/L (0-31); Albumin Level 4.1 g/dL (3.5-5.0); Alkaline Phosphatase 92 U/L (39-117); Anion Gap 14 (12-20); Aspartate Amino Transferase 16 U/L (5-31); Bilirubin Total 0.2 mg/dL (0.0-1.0); Blood Urea Nitrogen 12 mg/dL (9-16); Calcium 9.2 mg/dL (8.4-10.2); Carbon Dioxide 24 mmol/L (22-29); Chloride 106 mmol/L (96-108); Creatinine Clr Calc Pharmacy 73.7; Estimated Glomerular Filt Rate > 60; Glucose Random 149 mg/dL (60-115); Potassium 3.8 mmol/L (3.3-5.1); Sodium 140 mmol/L (135-145); Total Protein 7.4 g/dL (6.5-8.0)
[2024-08-01 11:09] LABS: Influenza A PCR POSITIVE (Negative); Influenza B PCR NEGATIVE (Negative); Resp Syncy Virus RNA Qual PCR NEGATIVE (Negative); SARS COV2 PCR INHOUSE NEGATIVE (Negative)
--- NOTE | 2024-08-01 11:13 | ED.SOB ---
HPI - SOB/Dyspnea General Chief Complaint: Dyspnea Stated Complaint: COUGH DIFF BREATHING Time Seen by Provider: 08/01/24 10:57 History of Present Illness ED Provider: Bro De La Rosa DO HPI Narrative: 54-year-old female with past medical history of COPD on 3 L nasal cannula home O2, diabetes, obesity hypoventilation syndrome, obstructive sleep apnea, osteoarthritis, asthma, hypertension, GERD, tobacco use and cocaine abuse history with most recent evaluation here on 07/17/2024, a couple of weeks ago requiring admission for COPD exacerbation presents to the ED for shortness of breath and a cough productive of yellow sputum. Patient received a DuoNeb by EMS. Patient states her CPAP setting is at 15 currently. She has had a cough productive of yellow sputum and a sore throat for the past day. She has taken her inhaler or nebulizer at home every 2 hours with no significant relief. She denies vomiting, runny nose, diarrhea, chest pain or abdominal pain. Currently smokes a half a pack a day. Related Data Home Medications ?Medication ?Instructions ?Recorded ?Confirmed calcium 500 mg (as 1 tab PO DAILY 06/26/24 07/22/24 carbonate)-vitamin D3 10 mcg (400 unit) tablet albuterol sulfate 2.5 mg/3 mL 2.5 mg inhalation Q4H PRN 07/13/24 07/22/24 (0.083 %) solution for nebulization Shortness Of Breath/Wheezing ibuprofen 800 mg tablet 800 mg PO BID PRN Headache 07/17/24 07/22/24 losartan 50 mg tablet 50 mg PO DAILY 07/17/24 07/22/24 Previous Rx's ?Medication ?Instructions ?Recorded lancets 28 gauge (FreeStyle #100 ea 01/20/21 Lancets) 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 meter (FreeStyle #1 ea 03/01/22 Lite Meter kit) blood sugar diagnostic (FreeStyle #100 ea 09/16/22 Lite Strips) furosemide 20 mg tablet 20 mg PO DAILY #90 tabs 12/09/23 aspirin 81 mg tablet,delayed 81 mg PO DAILY 90 days #90 tabs 01/01/24 release theophylline 400 mg 400 mg PO BID 90 days #180 tabs 01/27/24 tablet,extended release 24 hr glipizide 5 mg tablet 5 mg PO DAILY #90 tabs 04/08/24 albuterol sulfate 90 mcg/actuation 2 puff inhalation Q6H PRN for 04/10/24 aerosol inhaler (Ventolin HFA) wheezing #1 ea tiotropium 2.5 mcg-olodaterol 2.5 2 puff inhalation DAILY #4 grams 04/28/24 mcg/actuation mist for inhalation (Stiolto Respimat) tizanidine 4 mg tablet 4 mg PO Q12H PRN muscle spasm 30 06/11/24 days #60 tabs acetaminophen 650 mg 650 mg PO Q12H PRN pain 30 days 07/07/24 tablet,extended release #60 tabs gabapentin 800 mg tablet 800 mg PO QID Pain 30 days #120 07/07/24 tabs cefuroxime axetil 500 mg tablet 500 mg PO Q12H #8 tabs 07/14/24 ferrous sulfate 324 mg (65 mg 324 mg PO Q OTHER DAY #15 tabs 07/14/24 iron) tablet,delayed release walker #1 ea 07/14/24 topiramate 25 mg tablet 25 mg PO BID #60 tabs 07/18/24 atorvastatin 20 mg tablet 20 mg PO BEDTIME 90 days #90 tabs 07/21/24 ipratropium 0.5 mg-albuterol 3 mg 3 ml inhalation TID 30 days #270 mL 07/22/24 (2.5 mg base)/3 mL nebulization soln prednisone 20 mg tablet 40 mg (2 x 20 mg) PO DAILY #8 tabs 07/22/24 sertraline 100 mg tablet 150 mg (1.5 x 100 mg) PO DAILY 90 07/22/24 days #135 tabs esomeprazole magnesium 20 mg 20 mg PO DAILY #30 caps 07/25/24 capsule,delayed release Allergies Allergy/AdvReac Type Severity Reaction Status Date / Time doxycycline Allergy Severe Swelling Verified 08/01/24 09:38 varenicline [From CHANTIX] Allergy Severe ANAPHYLAXIS Verified 08/01/24 09:38 azithromycin Allergy Intermediate Rash Verified 08/01/24 09:38 barium sulfate Allergy Intermediate angioedema Verified 08/01/24 09:38 cetirizine Allergy Mild Rash Verified 08/01/24 09:38 famotidine Allergy Mild Rash Verified 08/01/24 09:38 linaclotide [Linzess] Allergy Mild Rash Verified 08/01/24 09:38 Review of Systems Review of Systems: Yes all other systems are reviewed and are negative [facility] Past Medical History Medical History Chronic lung disease Hypoxic respiratory failure Nocturnal hypoxemia HENRY (obstructive sleep apnea) COPD (chronic obstructive pulmonary disease) Diabetes mellitus COPD exacerbation Crack cocaine use Hyperkalemia Metabolic acidosis Leukocytosis Chest discomfort Chronic renal failure, stage 2 (mild) SOB (shortness of breath) Asthma Smoker Rotator cuff tendonitis GERD (gastroesophageal reflux disease) Chronic idiopathic constipation Bustos's esophagus Depression High triglycerides Gastroparesis Carpal tunnel syndrome of right wrist Nausea & vomiting Hernia Acute and chronic respiratory failure, unspecified whether with hypoxia or hypercapnia HTN (hypertension) Obesity (BMI 30-39.9) Knee pain, bilateral Surgical History History of cholecystectomy (~1988) History of carpal tunnel release Hx of tubal ligation History of pubovaginal sling (~2015) History of umbilical hernia repair (~2001) Hx of section History of open reduction and internal fixation (ORIF) procedure History of esophagogastroduodenoscopy (EGD) Family History Family History Father Heart disease HENRY (obstructive sleep apnea) Family history of breast cancer Mother Asthma Emphysema, unspecified Bronchitis Smoker Alcoholism Bone marrow disease Maternal Grandmother Diabetes Social History Social History Household Members: Family Household Members Other:: sister Housing: House Are you a primary insurance healthcare representative to a significant other at home: No Do you presently have visiting nurse or other home services: No Unable to assess alcohol history related to: Unknown Alcohol intake: former Comment: Sleeping Patient Tobacco Use Status: Current everyday Tobacco user Tobacco use type: Cigarette Cigarette Packs Per Day: 1 Cigarettes Per Day: 20.0 Years Smoked: 48 Smoked in Last 30 Days: Yes e-Cigarette/Vaping Use: Currently Using Second Hand Smoke Exposure: No Use of substances other than those prescribed or required for medical reasons: No Substance Use Type: Crack/Cocaine Advance Directives: No Advance Directives Information Provided: No Advance Directives Date on File: 12/19/23 Do you have a plan to hurt others: No Plan service: No Current occupational status: disabled 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 Physical Exam Vital Signs: Vital Signs: Last Vital Signs Temp 98.5 F 08/01/24 09:42 Pulse 96 08/01/24 10:59 Resp 20 08/01/24 10:59 BP 139/77 08/01/24 10:59 Pulse Ox 98 08/01/24 10:59 O2 Del Method Room Air 08/01/24 10:59 BMI result Body Mass Index 32.4 Constitutional: ?Alert, oriented, speaking in full sentences HEENT: ?Normocephalic, atraumatic. ?Moist mucous membranes Eyes: ?PERRL, EOMI Neck: ?Supple, nontender Chest: ?No chest wall tenderness Respiratory: ?Increased work of breathing with tachypnea and chest wall retractions. Diminished lung sounds at the bases. Unable to take a full breath. Cardio: ?Regular rate and rhythm, no murmur, 2+ radial and DP pulses symmetrically GI: ?Soft, nondistended, nontender Back: ?Normal range of motion, nontender Skin: ?No rash, no lesions Neuro: ?Alert and oriented to person, place and time, moves all 4 extremities, no focal deficits Extremities: ?No swelling or tenderness, full range of motion Psych: ?Calm, alert and cooperative, appropriate behavior Medical Decision Making Medical Decision Making MDM Narrative: Patient presenting with respiratory distress and cough. Differential diagnosis includes upper respiratory infection, pneumonia, COPD exacerbation, anemia. Results are positive for influenza A. Given the patient's risk factors, she is started on Tamiflu. She has transient hypoxia which appears to be positional while on exam stretcher. Given this and her increased work of breathing despite DuoNeb prior to arrival, we will continue bronchodilator therapy and speak to hospitalist about admission. There are no signs of pneumonia on chest x-ray and the patient is afebrile. Admission/Observation Consideration of admission/observation: Escalation of care including admission/observation considered Consult Healthcare Provider Management of the patient was discussed with: Hospitalist Lab Data [facility] Lab Attestation statement: I reviewed the patient's lab results. Labs reviewed and show mild hyperglycemia, otherwise unremarkable CMP, neutrophilic predominant leukocytosis of 16.1, improved from baseline anemia at 13.1 and positive influenza a. 08/01/24 10:23 08/01/24 10:23 Labs: Lab Results 08/01/24 Range/Units 10:23 WBC 16.1 H (4.8-10.8) X10*3/uL RBC 5.72 H D (4.20-5.50) X10*6/uL Hgb 13.1 D (12.0-16.0) g/dl Hct 44.6 D (37.0-47.0) % MCV 78.0 L (80.0-98.0) fL MCH 22.9 L (27.0-33.0) pg MCHC 29.4 L (31.0-35.0) g/dl RDW 19.7 H (11.0-16.0) % Plt Count 390 (160-400) X10*3/uL MPV 9.0 L (9.4-12.3) fL Immature Gran % (Auto) 0.4 (0.0-0.4) % Neut % (Auto) 82.8 H (45-73) % Lymph % (Auto) 8.6 L (20-40) % [place] % (Auto) 6.9 (2-11) % Eos % (Auto) 1.0 (0-4) % Baso % (Auto) 0.3 (0-2) % Lymph # (Auto) 1.4 (1.2-4.9) X10*3/uL [place] # (Auto) 1.1 (0.1-1.2) X10*3/uL Eos # (Auto) 0.2 (0.0-0.4) X10*3/uL Baso # (Auto) 0.1 (0.0-0.2) X10*3/uL Abs Immat Gran (auto) 0.06 H (0.00-0.03) X10*3/uL Absolute Neuts (auto) 13.4 H (2.0-8.3) x10*3/uL Absolute Nucleated RBC 0.000 (0.0-0.012) X10*3/uL Nucleated RBC % (auto) 0.0 (0.0-0.2) /100WBC Sodium 140 (135-145) mmol/L Potassium 3.8 (3.3-5.1) mmol/L Chloride 106 (96-108) mmol/L Carbon Dioxide 24 (22-29) mmol/L Anion Gap 14 (12-20) BUN 12 (9-16) mg/dL Creatinine 0.74 (0.5-1.4) mg/dL Estim Creat Clear Calc 73.7 Estimated GFR > 60 Random Glucose 149 H (60-115) mg/dL Calcium 9.2 D (8.4-10.2) mg/dL Total Bilirubin 0.2 (0.0-1.0) mg/dL AST 16 (5-31) U/L ALT 15 (0-31) U/L Alkaline Phosphatase 92 (39-117) U/L Total Protein 7.4 (6.5-8.0) g/dL Albumin 4.1 (3.5-5.0) g/dL Influenza Type A (PCR) POSITIVE A (Negative) Influenza Type B (PCR) NEGATIVE (Negative) RSV RNA Qual (PCR) NEGATIVE (Negative) SARS-CoV-2 RNA (RT-PCR) NEGATIVE (Negative) Independent Interpretation I performed an independent interpretation of an: Plain X-Ray Interpretation: Chest x-ray per my independent interpretation shows no acute cardiopulmonary abnormalities. Discharge Plan Discharge Clinical Impression: Influenza A Patient Disposition: Admitted As Inpatient Prescriptions: No Action (DME) lancets [FreeStyle Lancets] 28 gauge misc See Rx Instructions .ROUTE .MEDSUPPLY Qty: 100 1RF Rx Instructions: Use to check blood sugar daily or if symptomatic hypo/hypergylcemia (DME) 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 meter [FreeStyle Lite Meter] Kit See Rx Instructions .ROUTE .MEDSUPPLY Qty: 1 0RF Rx Instructions: Use to check blood sugar daily or if symptomatic for hypo/hyperglycemia (DME) FreeStyle Lite Strips Strip See Rx Instructions .ROUTE .MEDSUPPLY Qty: 100 1RF Rx Instructions: Use to check blood sugar daily or if symptomatic hypo/hypergylcemia furosemide 20 mg tablet 20 mg PO DAILY Qty: 90 3RF aspirin 81 mg tablet,delayed release (DR/EC) 81 mg PO DAILY 90 Days Qty: 90 1RF theophylline 400 mg tablet extended release 24 hr 400 mg PO BID 90 Days Qty: 180 4RF glipizide 5 mg tablet 5 mg PO DAILY Qty: 90 0RF albuterol sulfate [Ventolin HFA] 90 mcg/actuation HFA aerosol inhaler 2 puff inhalation Q6H PRN (Reason: for wheezing) Qty: 1 6RF Stiolto Respimat 2.5-2.5 mcg/actuation mist 2 puff INHALATION DAILY Qty: 4 6RF tizanidine 4 mg tablet 4 mg PO Q12H PRN (Reason: muscle spasm) 30 Days Qty: 60 0RF Rx Instructions: do not take concurrently with famotidine gabapentin 800 mg tablet 800 mg PO QID 30 Days Qty: 120 0RF acetaminophen 650 mg tablet extended release 650 mg PO Q12H PRN (Reason: pain) 30 Days Qty: 60 0RF atorvastatin 20 mg tablet 20 mg PO BEDTIME 90 Days Qty: 90 0RF esomeprazole magnesium 20 mg capsule,delayed release(DR/EC) 20 mg PO DAILY Qty: 30 3RF calcium carbonate-vitamin D3 500 mg-10 mcg (400 unit) tablet 1 tab PO DAILY albuterol sulfate 2.5 mg /3 mL (0.083 %) solution for nebulization 2.5 mg inhalation Q4H PRN (Reason: Shortness Of Breath/Wheezing) cefuroxime axetil 500 mg Tablet 500 mg PO Q12H Qty: 8 0RF ferrous sulfate 324 mg (65 mg iron) tablet,delayed release (DR/EC) 324 mg PO Q OTHER DAY Qty: 15 0RF (DME) mary anne Seec See Rx Instructions .Route Qty: 1 0RF Rx Instructions: As directed ibuprofen 800 mg tablet 800 mg PO BID PRN (Reason: Headache) Rx Instructions: please use sparingly due to diabetes losartan 50 mg tablet 50 mg PO DAILY topiramate 25 mg tablet 25 mg PO BID Qty: 60 0RF ipratropium-albuterol 0.5 mg-3 mg(2.5 mg base)/3 mL solution for nebulization 3 ml INHALATION TID 30 Days Qty: 270 6RF prednisone 20 mg tablet 40 mg PO DAILY Qty: 8 0RF sertraline 100 mg tablet 150 mg PO DAILY 90 Days Qty: 135 0RF Print Language: Panamanian
[2024-08-01] MEDS: Albuterol Sulfate 2.5 MG, Albuterol/Iprat 2.5/0.5MG 3 ML 3 ML INHALE (11:47)
[2024-08-01] MEDS: Oseltamivir Phosphate 75 MG CAPSULE PO ×2 (11:57→20:40)
[2024-08-01] MEDS: methylPREDNISolone Sod Succ 125 MG/2 ML VIAL IVPUSH (11:57)
[2024-08-01] MEDS: Nicotine 14 MG PATCH.TD24 TRANSDERMA (11:57)
--- NOTE | 2024-08-01 12:06 | P.HPHOSP_ITS ---
History of Present Illness Date of Service: 08/01/24 Chief Complaint: SOB 54-year-old female with past medical history of COPD on 3 L nasal cannula home O2, diabetes, obesity hypoventilation syndrome, obstructive sleep apnea, osteoarthritis, asthma, hypertension, GERD, tobacco use and cocaine abuse presented to the ER with complaints of shortness of breath and cough. She has had multiple hospital admissions in 2023, most recent evaluation here on 07/17/2024,requiring admission for COPD exacerbation. Currently smokes a half a pack a day and uses cocaine. Chest x-ray negative for consolidation or effusion, no fever leukocytosis noted. Flu A positive, negative RSV and COVID. In the ER, patient received a dose of Solu-Medrol, Tamiflu, albuterol and a nicotine patch. She will be admitted for further management and treatment of acute respiratory failure secondary to COPD and flu a. Review of Systems 2 Review of Systems: Denies any recent fever chills or decrease in appetite respiratory See HPI cardiovascular Denied chest pain gastrointestinal denies any dysphagia abdominal pain nausea vomiting or diarrhea genitourinary denies any dysuria frequency or hematuria musculoskeletal denies any joint pain or swelling neuropsych denies any weakness or seizures all other systems reviewed are negative [facility] Medical History Chronic lung disease Hypoxic respiratory failure Nocturnal hypoxemia HENRY (obstructive sleep apnea) COPD (chronic obstructive pulmonary disease) Diabetes mellitus COPD exacerbation Crack cocaine use Hyperkalemia Metabolic acidosis Leukocytosis Chest discomfort Chronic renal failure, stage 2 (mild) SOB (shortness of breath) Asthma Smoker Rotator cuff tendonitis GERD (gastroesophageal reflux disease) Chronic idiopathic constipation Bustos's esophagus Depression High triglycerides Gastroparesis Carpal tunnel syndrome of right wrist Nausea & vomiting Hernia Acute and chronic respiratory failure, unspecified whether with hypoxia or hypercapnia HTN (hypertension) Obesity (BMI 30-39.9) Knee pain, bilateral Family History Father Heart disease HENRY (obstructive sleep apnea) Family history of breast cancer Mother Asthma Emphysema, unspecified Bronchitis Smoker Alcoholism Bone marrow disease Maternal Grandmother Diabetes Surgical History History of cholecystectomy (~1988) History of carpal tunnel release Hx of tubal ligation History of pubovaginal sling (~2015) History of umbilical hernia repair (~2001) Hx of section History of open reduction and internal fixation (ORIF) procedure History of esophagogastroduodenoscopy (EGD) Social History Household Members: Family Household Members Other:: sister Housing: House Are you a primary medicare sales representative to a significant other at home: No Do you presently have visiting nurse or other home services: Yes (vna) Unable to assess alcohol history related to: Unknown Alcohol intake: former Comment: Sleeping Patient Tobacco Use Status: Current everyday Tobacco user Tobacco use type: Cigarette Cigarette Packs Per Day: 1 Cigarettes Per Day: 20.0 Years Smoked: 48 Smoked in Last 30 Days: Yes e-Cigarette/Vaping Use: Currently Using Patient Interested in Nicotine Replacement: Yes Second Hand Smoke Exposure: No Use of substances other than those prescribed or required for medical reasons: No Substance Use Type: Crack/Cocaine Currently Displaying Signs/Symptoms of Drug Intoxication Withdrawal: No Have you been hit, kicked, punched, or otherwise hurt by someone within the past year? If so, by whom?: No Do you feel safe in your current relationship?: No Current Relationship Is there a partner from a previous relationship who is making you feel unsafe now?: No Are you made to feel afraid or neglected: No Advance Directives: No Advance Directives Information Provided: No Advance Directives Date on File: 12/19/23 Do you have a plan to hurt others: No Plan Recently lost weight without trying: No Eating poorly because of decreased appetite: No Nutrition Risks: No Nutritional Risk Patient : No : No Poor oral hygiene: No service: No Current occupational status: disabled 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 Meds Allergies Allergy/AdvReac Type Severity Reaction Status Date / Time doxycycline Allergy Severe Swelling Verified 08/01/24 09:38 varenicline [From CHANTIX] Allergy Severe ANAPHYLAXIS Verified 08/01/24 09:38 azithromycin Allergy Intermediate Rash Verified 08/01/24 09:38 barium sulfate Allergy Intermediate angioedema Verified 08/01/24 09:38 cetirizine Allergy Mild Rash Verified 08/01/24 09:38 famotidine Allergy Mild Rash Verified 08/01/24 09:38 linaclotide [Linzess] Allergy Mild Rash Verified 08/01/24 09:38 Active Medications: Current Medications Acetaminophen (Acetaminophen 325 Mg Tablet) 650 mg PO Q6H PRN PRN Reason: Pain, Mild 1-3,fever,headache Albuterol/Ipratropium (Albuterol/Iprat 2.5/0.5mg 3 Ml Ampul.Neb) 3 ml INHALE RQ4H WHILE AWAKE [facility] Calcium Carbonate (Calcium Carbonate 750 Mg Tab.Chew) 750 mg PO Q4H PRN PRN Reason: Heartburn Heparin Sodium (Porcine) (Heparin Sodium,Porcine 5,000 Unit/Ml Vial) 5,000 unit SUBCUT Q12H [place] Magnesium Hydroxide (Milk Of Magnesia 30 Ml Oral.Susp) 30 ml PO DAILY PRN PRN Reason: Constipation Melatonin (Melatonin 3 Mg Tablet) 6 mg PO BEDTIME PRN PRN Reason: Insomnia Methylprednisolone Sodium Succinate (Methylprednisolone Sod Succ 40 Mg/Ml Vial) 40 mg IVPUSH Q12H [place] Ondansetron HCl (Ondansetron Hcl 4 Mg/2 Ml Vial) 4 mg IVPUSH Q8H PRN PRN Reason: Nausea and Vomiting Oseltamivir Phosphate (Oseltamivir Phosphate 75 Mg Capsule) 75 mg PO Q12H [place] Stop: 08/05/24 21:01 Sodium Chloride (0.9 % Sodium Chloride Flush 3 Ml Syringe) 3 ml IVFLUSH QSHIFT [facility] Home Medications ?Medication ?Instructions ?Recorded ?Confirmed ?Last Taken ?Type calcium 500 mg (as 1 tab PO DAILY 06/26/24 08/01/24 07/16/24 History carbonate)-vitamin D3 10 mcg (400 unit) tablet albuterol sulfate 2.5 mg/3 mL 2.5 mg inhalation Q4H PRN 07/13/24 08/01/24 Unknown History (0.083 %) solution for nebulization Shortness Of Breath/Wheezing ibuprofen 800 mg tablet 800 mg PO BID PRN Headache 07/17/24 08/01/24 Unknown History losartan 50 mg tablet 50 mg PO DAILY 07/17/24 08/01/24 07/16/24 History ipratropium 0.5 mg-albuterol 3 mg 3 ml inhalation QID PRN Shortness 08/01/24 08/01/24 Unknown History (2.5 mg base)/3 mL nebulization Of Breath Or Wheezing soln Physical Exam 2 Vital Signs and Narrative: Vital Signs: Last Vital Signs Temp 98.5 F 08/01/24 09:42 Pulse 111 H 08/01/24 11:43 Resp 19 08/01/24 11:43 BP 139/77 08/01/24 10:59 Pulse Ox 98 08/01/24 10:59 O2 Del Method Room Air 08/01/24 10:59 BMI result Body Mass Index 32.4 Appearing in no acute distress head is normocephalic atraumatic eyes pupils are PERRLA sclera is anicteric mouth throat mucous membranes are intact and moist neck is supple no lymphadenopathy, no JVD noted lung sounds are clear to auscultation heart regular rate rhythm, clear S1, S2 positive bowel sounds, abdomen is soft, nontender neuro patient is alert x3, no focal deficits Results Labs 08/02/24 07:42 08/02/24 07:42 Labs: Laboratory Results - last 24 hr 08/01/24 10:23 MCV 78.0 L MCH 22.9 L MCHC 29.4 L RDW 19.7 H Plt Count 390 MPV 9.0 L Immature Gran % (Auto) 0.4 Neut % (Auto) 82.8 H Lymph % (Auto) 8.6 L [place] % (Auto) 6.9 Eos % (Auto) 1.0 Baso % (Auto) 0.3 Lymph # (Auto) 1.4 [place] # (Auto) 1.1 Eos # (Auto) 0.2 Baso # (Auto) 0.1 Abs Immat Gran (auto) 0.06 H Absolute Neuts (auto) 13.4 H Absolute Nucleated RBC 0.000 Nucleated RBC % (auto) 0.0 Anion Gap 14 Estim Creat Clear Calc 73.7 Estimated GFR > 60 Random Glucose 149 H Calcium 9.2 D Total Bilirubin 0.2 AST 16 ALT 15 Alkaline Phosphatase 92 Total Protein 7.4 Albumin 4.1 Influenza Type A (PCR) POSITIVE A Influenza Type B (PCR) NEGATIVE RSV RNA Qual (PCR) NEGATIVE SARS-CoV-2 RNA (RT-PCR) NEGATIVE Assessment and Plan (1) Cocaine use disorder: Status: Acute Plan 54 year old women admitted with acute hypoxic resp failure secondary to COPD and Flu A Acute resp failure, COPD and flu A duonebs and IV steroids scheduled Tamuifu for 10 doses oxygen supplementation to keep sats >90% DM2 ss, ada diet HLD statin HTN stable BP continue home medications Obstructive sleep apnea CPAP Mental health continue home medications Obesity class 1. BMI 32.4 Discussed importance of weight management as this may be contributing to worsening of other comorbidities Tobacco use NRT as needed Counseled on cessation DVT prophylaxis with heparin full code Quality Stroke Does the patient have a stroke diagnosis?: No VTE Prior VTE?: No VTE Risk Level:: Medical - moderate - high VTE Device Contraindication: Treatment Not Indicated VTE Drug Contraindication: N/A - Med Ordered
[2024-08-01 12:13] LABS: Venous Blood Gas Refer to POC result
[2024-08-01 12:14] LABS: VBG Base Excess 2.7 mmol/L; VBG HCO3 30 mmol/L (22-26); VBG pCO2 56 mmHg; VBG pH 7.33 (7.32-7.43); VBG pO2 28 mmHg
[2024-08-01 13:40] LABS: Glucose, Whole Blood 233 mg/dL (60-115)
[2024-08-01] MEDS: Heparin Sodium,Porcine 5,000 UNIT/ML VIAL 5000 UNIT SUBCUT ×2 (14:07→23:12)
[2024-08-01] MEDS: Albuterol/Iprat 2.5/0.5MG 3 ML AMPUL.NEB INHALE ×2 (15:15→19:08)
--- NOTE | 2024-08-01 15:28 | PHA.MEDREC ---
Addendum entered by Deja Liu RPh 08/01/24 15:44: [facility] reviewed Original Note: Pharmacy Consult ? Medication Reconciliation Pharmacy has completed the medication reconciliation. Spoke with patient to confirm medications. She last took her medications 2 days ago.
[2024-08-01 16:22] LABS: Glucose, Whole Blood 272 mg/dL (60-115)
[2024-08-01] MEDS: Insulin Lispro 100 UNIT/ML 3 ML VIAL SUBCUT ×2 (16:35→20:48)
[2024-08-01] MEDS: 0.9 % Sodium Chloride Flush 3 ML SYRINGE IVFLUSH ×2 (16:36→20:42)
[2024-08-01] MEDS: Gabapentin 400 MG CAPSULE 800 MG PO ×2 (18:19→20:41)
[2024-08-01 20:17] LABS: Glucose, Whole Blood 227 mg/dL (60-115)
[2024-08-01] MEDS: Topiramate 25 MG TABLET PO (20:40)
[2024-08-01] MEDS: Acetaminophen 325 MG TABLET 650 MG PO (20:41)
[2024-08-01] MEDS: Atorvastatin Calcium 20 MG TABLET PO (20:42)
[2024-08-01] MEDS: Theophylline Anhydrous ER 400 MG TAB.ER.24H PO (20:48)
[2024-08-01] MEDS: methylPREDNISolone Sod Succ 40 MG/ML VIAL IVPUSH (23:12)
[2024-08-02] VITALS (10 sets, daily range): BP systolic 122–140; BP diastolic 70–85; PULSE 71–101; RESP 17–21; TEMP 36.2–37.1; O2SAT 94–98
[2024-08-02] MEDS: Omeprazole 20 MG CAPSULE.DR PO (05:56)
[2024-08-02 07:16] LABS: Glucose, Whole Blood 213 mg/dL (60-115)
[2024-08-02 07:47] LABS: MANUAL DIFF FLAG NO
[2024-08-02] MEDS: Sertraline HCL 50 MG TABLET 150 MG PO (07:47)
[2024-08-02] MEDS: Losartan Potassium 50 MG TABLET PO (07:47)
[2024-08-02] MEDS: Topiramate 25 MG TABLET PO ×2 (07:47→20:56)
[2024-08-02] MEDS: Ferrous Sulfate 324 MG TABLET.DR PO (07:47)
[2024-08-02] MEDS: Insulin Lispro 100 UNIT/ML 3 ML VIAL SUBCUT ×3 (07:47→20:56)
[2024-08-02] MEDS: glipiZIDE 5 MG TABLET PO (07:47)
[2024-08-02] MEDS: Aspirin Enteric Coated 81 MG TABLET.DR PO (07:48)
[2024-08-02] MEDS: Theophylline Anhydrous ER 400 MG TAB.ER.24H PO ×2 (07:48→20:56)
[2024-08-02] MEDS: Furosemide 20 MG TABLET PO (07:48)
[2024-08-02] MEDS: Oseltamivir Phosphate 75 MG CAPSULE PO ×2 (07:48→20:56)
[2024-08-02] MEDS: 0.9 % Sodium Chloride Flush 3 ML SYRINGE IVFLUSH ×4 (07:49→22:34)
[2024-08-02] MEDS: Gabapentin 400 MG CAPSULE 800 MG PO ×4 (07:49→20:56)
[2024-08-02 07:53] LABS: Basophils Percent Auto 0.1 % (0-2); Hematocrit 40.2 % (37.0-47.0); Hemoglobin 11.9 g/dl (12.0-16.0); Imm Gran Abs Auto 0.03 X10*3/uL (0.00-0.03); Imm Gran Pct Auto 0.4 % (0.0-0.4); Lymphocytes Percent Auto 11.8 % (20-40); Mean Corpuscular HGB Conc 29.6 g/dl (31.0-35.0); Mean Corpuscular Hemoglobin 22.7 pg (27.0-33.0); Mean Corpuscular Volume 76.6 fL (80.0-98.0); Mean Platelet Volume 9.5 fL (9.4-12.3); Monocytes Absolute Auto 0.4 X10*3/uL (0.1-1.2); Monocytes Percent Auto 4.6 % (2-11); Neutrophils Absolute Auto 6.9 x10*3/uL (2.0-8.3); Neutrophils Percent Auto 83.1 % (45-73); Platelet Count 385 X10*3/uL (160-400); Red Blood Count 5.25 X10*6/uL (4.20-5.50); Red Cell Distribution Width 19.8 % (11.0-16.0); White Blood Count 8.2 X10*3/uL (4.8-10.8)
[2024-08-02 08:05] LABS: Alanine Aminotransferase 13 U/L (0-31); Albumin Level 3.9 g/dL (3.5-5.0); Alkaline Phosphatase 81 U/L (39-117); Aspartate Amino Transferase 14 U/L (5-31); Bilirubin Total 0.1 mg/dL (0.0-1.0); Blood Urea Nitrogen 30 mg/dL (9-16); Creatinine Clr Calc Pharmacy 75.1; Estimated Glomerular Filt Rate > 60; Glucose Random 209 mg/dL (60-115); Total Protein 7.1 g/dL (6.5-8.0)
[2024-08-02 08:12] LABS: Anion Gap 16 (12-20); Carbon Dioxide 24 mmol/L (22-29); Chloride 104 mmol/L (96-108); Potassium 4.6 mmol/L (3.3-5.1); Sodium 139 mmol/L (135-145)
[2024-08-02] MEDS: Albuterol/Iprat 2.5/0.5MG 3 ML AMPUL.NEB INHALE ×4 (08:19→20:06)
--- NOTE | 2024-08-02 09:43 | MHC.CM.PN ---
Patient lives in an apartment with her Sister and she uses a walker and a w/c to assist with mobility. Patient has a TOGGLER and home CPAP & O2 from [facility]. Home/resume said services is the goal and CM has initiated and will follow for dc planning. PCP is Dr. Joe Hale and BLS transport appears necessary. CM will follow.
--- NOTE | 2024-08-02 09:57 | HO.PM.IMPN ---
Subjective Subjective Date of Service: 08/02/24 Interval History: Follow up asthma and FLU A still with sob and cough Review of Systems Negative except HPI/interval history. Physical Exam Vital Signs: Vital Signs: Last Vital Signs Temp 97.8 F 08/02/24 07:16 Pulse 71 08/02/24 08:21 Resp 18 08/02/24 08:21 BP 140/85 H 08/02/24 07:16 Pulse Ox 98 08/02/24 07:16 O2 Del Method CPAP 08/02/24 07:16 O2 Flow Rate 3.0 08/01/24 15:00 BMI result Body Mass Index 33.6 Appearing in no acute distress lung sounds exp wheezing heart regular rate rhythm, clear S1, S2 positive bowel sounds, abdomen is soft, nontender neuro patient is alert x3, no focal deficits Objective Data Active Medications Acetaminophen (Acetaminophen 325 Mg Tablet) 650 mg PO Q6H PRN PRN Reason: Pain, Mild 1-3,fever,headache Last Admin: 08/01/24 20:41 Dose: 650 mg Documented By: DEENA Albuterol/Ipratropium (Albuterol/Iprat 2.5/0.5mg 3 Ml Ampul.Neb) 3 ml INHALE RQ4H WHILE AWAKE [facility] Last Admin: 08/02/24 08:19 Dose: 3 ml Documented By: VAZQUEZ Aspirin (Aspirin Enteric Coated 81 Mg Tablet.) 81 mg PO DAILY [facility] Last Admin: 08/02/24 07:48 Dose: 81 mg Documented By: DEBBIE Atorvastatin Calcium (Atorvastatin Calcium 20 Mg Tablet) 20 mg PO BEDTIME [facility] Last Admin: 08/01/24 20:42 Dose: 20 mg Documented By: DEENA Calcium Carbonate (Calcium Carbonate 750 Mg Tab.Chew) 750 mg PO Q4H PRN PRN Reason: Heartburn Dextrose (Dextrose 50 % 25 Gm/50 Ml Syringe) 25 gm IVPUSH Q15M PRN; Protocol PRN Reason: per Hypoglycemia Standing Ord. Ferrous Sulfate (Ferrous Sulfate 324 Mg Tablet.) 324 mg PO Q2D@0900 [facility] Last Admin: 08/02/24 07:47 Dose: 324 mg Documented By: DEBBIE Furosemide (Furosemide 20 Mg Tablet) 20 mg PO DAILY [facility]; Protocol Last Admin: 08/02/24 07:48 Dose: 20 mg Documented By: DEBBIE Gabapentin (Gabapentin 400 Mg Capsule) 800 mg PO QID [facility] Last Admin: 08/02/24 07:49 Dose: 800 mg Documented By: DEBBIE Glipizide (Glipizide 5 Mg Tablet) 5 mg PO DAILY [facility] Last Admin: 08/02/24 07:47 Dose: 5 mg Documented By: DEBBIE Glucose (Glucose Gel 15 Gm Gel..Gram.) 15 gm PO Q15M PRN; Protocol PRN Reason: per Hypoglycemia Standing Ord. Heparin Sodium (Porcine) (Heparin Sodium,Porcine 5,000 Unit/Ml Vial) 5,000 unit SUBCUT Q12H [facility] Last Admin: 08/01/24 23:12 Dose: 5,000 unit Documented By: DEENA Ibuprofen (Ibuprofen 800 Mg Tablet) 800 mg PO BID PRN PRN Reason: Headache Insulin Human Lispro (Insulin Lispro 100 Unit/Ml 3 Ml Vial) 0 unit SUBCUT QIDACHS [facility]; Protocol Last Admin: 08/02/24 07:47 Dose: 4 unit Documented By: DEBBIE Losartan Potassium (Losartan Potassium 50 Mg Tablet) 50 mg PO DAILY [facility]; Protocol Last Admin: 08/02/24 07:47 Dose: 50 mg Documented By: DEBBIE Magnesium Hydroxide (Milk Of Magnesia 30 Ml Oral.Susp) 30 ml PO DAILY PRN PRN Reason: Constipation Melatonin (Melatonin 3 Mg Tablet) 6 mg PO BEDTIME PRN PRN Reason: Insomnia Methylprednisolone Sodium Succinate (Methylprednisolone Sod Succ 40 Mg/Ml Vial) 40 mg IVPUSH Q12H [facility] Last Admin: 08/01/24 23:12 Dose: 40 mg Documented By: DEENA Nicotine Polacrilex (Nicotine Polacrilex 2 Mg Gum) 2 mg BUCCAL Q1H PRN PRN Reason: Nicotine Cravings Omeprazole (Omeprazole 20 Mg Capsule.) 20 mg PO DAILY@0630 [facility] Last Admin: 08/02/24 05:56 Dose: 20 mg Documented By: DEENA Ondansetron HCl (Ondansetron Hcl 4 Mg/2 Ml Vial) 4 mg IVPUSH Q8H PRN PRN Reason: Nausea and Vomiting Oseltamivir Phosphate (Oseltamivir Phosphate 75 Mg Capsule) 75 mg PO Q12H [facility] Stop: 08/05/24 21:01 Last Admin: 08/02/24 07:48 Dose: 75 mg Documented By: DEBBIE Sertraline HCl (Sertraline Hcl 50 Mg Tablet) 150 mg PO DAILY [facility] Last Admin: 08/02/24 07:47 Dose: 150 mg Documented By: DEBBIE Sodium Chloride (0.9 % Sodium Chloride Flush 3 Ml Syringe) 3 ml IVFLUSH QSHIFT [facility] Last Admin: 08/02/24 07:49 Dose: 3 ml Documented By: DEBBIE Theophylline (Theophylline Anhydrous Er 400 Mg Tab.Er.24h) 400 mg PO BID [facility] Last Admin: 08/02/24 07:48 Dose: 400 mg Documented By: DEBBIE Tizanidine HCl (Tizanidine Hcl 4 Mg Tablet) 4 mg PO Q12H PRN PRN Reason: muscle spasm Topiramate (Topiramate 25 Mg Tablet) 25 mg PO BID [facility] Last Admin: 08/02/24 07:47 Dose: 25 mg Documented By: DEBBIE Labs 08/02/24 07:42 08/02/24 07:42 Labs: Laboratory Results - last 24 hr 08/01/24 08/01/24 08/01/24 10:23 12:08 13:35 MCV 78.0 L MCH 22.9 L MCHC 29.4 L RDW 19.7 H Plt Count 390 MPV 9.0 L Immature Gran % (Auto) 0.4 Neut % (Auto) 82.8 H Lymph % (Auto) 8.6 L Lawrence % (Auto) 6.9 Eos % (Auto) 1.0 Baso % (Auto) 0.3 Lymph # (Auto) 1.4 Lawrence # (Auto) 1.1 Eos # (Auto) 0.2 Baso # (Auto) 0.1 Abs Immat Gran (auto) 0.06 H Absolute Neuts (auto) 13.4 H Absolute Nucleated RBC 0.000 Nucleated RBC % (auto) 0.0 VBG pH 7.33 VBG pCO2 56 VBG pO2 28 VBG HCO3 30 H VBG O2 Saturation 35.0 VBG Base Excess 2.7 Anion Gap 14 Estim Creat Clear Calc 73.7 Estimated GFR > 60 POC Glucose 233 H Random Glucose 149 H Calcium 9.2 D Total Bilirubin 0.2 AST 16 ALT 15 Alkaline Phosphatase 92 Total Protein 7.4 Albumin 4.1 Influenza Type A (PCR) POSITIVE A Influenza Type B (PCR) NEGATIVE RSV RNA Qual (PCR) NEGATIVE SARS-CoV-2 RNA (RT-PCR) NEGATIVE 08/01/24 08/01/24 08/02/24 16:17 20:00 07:04 MCV MCH MCHC RDW Plt Count MPV Immature Gran % (Auto) Neut % (Auto) Lymph % (Auto) Lawrence % (Auto) Eos % (Auto) Baso % (Auto) Lymph # (Auto) Lawrence # (Auto) Eos # (Auto) Baso # (Auto) Abs Immat Gran (auto) Absolute Neuts (auto) Absolute Nucleated RBC Nucleated RBC % (auto) VBG pH VBG pCO2 VBG pO2 VBG HCO3 VBG O2 Saturation VBG Base Excess Anion Gap Estim Creat Clear Calc Estimated GFR POC Glucose 272 H 227 H 213 H Random Glucose Calcium Total Bilirubin AST ALT Alkaline Phosphatase Total Protein Albumin Influenza Type A (PCR) Influenza Type B (PCR) RSV RNA Qual (PCR) SARS-CoV-2 RNA (RT-PCR) 08/02/24 07:42 MCV 76.6 L MCH 22.7 L MCHC 29.6 L RDW 19.8 H Plt Count 385 MPV 9.5 Immature Gran % (Auto) 0.4 Neut % (Auto) 83.1 H Lymph % (Auto) 11.8 L Lawrence % (Auto) 4.6 Eos % (Auto) 0.0 Baso % (Auto) 0.1 Lymph # (Auto) 1.0 L Lawrence # (Auto) 0.4 Eos # (Auto) 0.0 Baso # (Auto) 0.0 Abs Immat Gran (auto) 0.03 Absolute Neuts (auto) 6.9 Absolute Nucleated RBC 0.000 Nucleated RBC % (auto) 0.0 VBG pH VBG pCO2 VBG pO2 VBG HCO3 VBG O2 Saturation VBG Base Excess Anion Gap 16 Estim Creat Clear Calc 75.1 Estimated GFR > 60 POC Glucose Random Glucose 209 H Calcium 9.0 Total Bilirubin 0.1 AST 14 ALT 13 Alkaline Phosphatase 81 Total Protein 7.1 Albumin 3.9 Influenza Type A (PCR) Influenza Type B (PCR) RSV RNA Qual (PCR) SARS-CoV-2 RNA (RT-PCR) Assessment and Plan (1) Influenza A: Status: Acute Plan 54 year old women admitted with acute hypoxic resp failure secondary to COPD and Flu A Acute resp failure, COPD and flu A duonebs and IV steroids scheduled Tamuifu for 10 doses oxygen supplementation to keep sats >90% DM2 ss, ada diet HLD statin HTN stable BP continue home medications Obstructive sleep apnea CPAP Mental health continue home medications Obesity class 1. BMI 32.4 Discussed importance of weight management as this may be contributing to worsening of other comorbidities Tobacco use NRT as needed Counseled on cessation DVT prophylaxis with heparin attending Dr. Liriano full code Quality Stroke Does the patient have a stroke diagnosis?: No VTE Prior VTE?: No VTE Risk Level:: Medical - moderate - high VTE Device Contraindication: Treatment Not Indicated VTE Drug Contraindication: N/A - Med Ordered
--- NOTE | 2024-08-02 10:07 | P.CONPL_ITS ---
History of Present Illness History of Present Illness Consult date: 08/02/24 Chief complaint: COPD, Flu A Narrative: 54-year-old lady, active 30+ pack-year smoker, with underlying history of severe asthma/COPD overlap syndrome recurrently exacerbated by cocaine use, also severe obstructive sleep apnea with obesity hypoventilation controlled on nocturnal BiPAP admitted on 08/01/2024 with dyspnea secondary to exacerbation of underlying asthma/COPD secondary to influenza infection. Now improving with empiric therapy. Review of Systems 2 Constitutional: Constitutional: Denies daytime sleepiness, Denies excessive sweating, Denies fatigue, Denies fever(s), Denies lethargy, Denies malaise, Denies night sweats, Denies snoring and Denies weight loss Eyes: Eyes: Denies blurry vision and Denies itchy eyes ENT: Denies nasal congestion, Denies post nasal drip, Denies sinus pain, Denies sinus pressure and Denies other ( Thrush) Cardiovascular: Cardiovascular: Denies chest pain, Denies pedal edema, Denies dyspnea, Reports dyspnea on exertion, Denies orthopnea and Denies paroxysmal nocturnal dyspnea Respiratory: Respiratory: Denies cough, Denies hemoptysis, Denies excessive phlegm production, Denies dyspnea, Reports dyspnea on exertion, Denies snoring and Denies wheezing Gastrointestinal: Gastrointestinal: Denies abdominal pain and Denies heartburn Musculoskeletal: Musculoskeletal: Denies myalgias, Denies arthralgias and Denies joint swelling Integumentary/Breasts: Skin/Breast: Denies rash Neurologic: Denies memory loss and Denies seizure-like activity Psychiatric: Psychiatric: Denies abnormal sleep pattern, Denies anxiety and Denies memory loss Endocrine: Endocrine: Denies excessive sweating, Denies fatigue and Denies heat intolerance Hematologic/Lymphatic: Hematologic/Lymphatic: Denies easy bruising Allergic/Immunologic: Allergic/Immunologic: Denies itchy eyes, Denies seasonal rhinorrhea and Denies wheezing PMFSH Past Medical History Medical History Chronic lung disease Hypoxic respiratory failure Nocturnal hypoxemia HENRY (obstructive sleep apnea) COPD (chronic obstructive pulmonary disease) Diabetes mellitus COPD exacerbation Crack cocaine use Hyperkalemia Metabolic acidosis Leukocytosis Chest discomfort Chronic renal failure, stage 2 (mild) SOB (shortness of breath) Asthma Smoker Rotator cuff tendonitis GERD (gastroesophageal reflux disease) Chronic idiopathic constipation Bustos's esophagus Depression High triglycerides Gastroparesis Carpal tunnel syndrome of right wrist Nausea & vomiting Hernia Acute and chronic respiratory failure, unspecified whether with hypoxia or hypercapnia HTN (hypertension) Obesity (BMI 30-39.9) Knee pain, bilateral Family History Family History Father Heart disease HENRY (obstructive sleep apnea) Family history of breast cancer Mother Asthma Emphysema, unspecified Bronchitis Smoker Alcoholism Bone marrow disease Maternal Grandmother Diabetes Surgical History Surgical History History of cholecystectomy (~1988) History of carpal tunnel release Hx of tubal ligation History of pubovaginal sling (~2015) History of umbilical hernia repair (~2001) Hx of section History of open reduction and internal fixation (ORIF) procedure History of esophagogastroduodenoscopy (EGD) Social History Social History Household Members: Family Household Members Other:: sister Housing: House Are you a primary health care liaison to a significant other at home: No Do you presently have visiting nurse or other home services: Yes (vna) Unable to assess alcohol history related to: Unknown Alcohol intake: former Comment: Sleeping Patient Tobacco Use Status: Current everyday Tobacco user Tobacco use type: Cigarette Cigarette Packs Per Day: 1 Cigarettes Per Day: 20.0 Years Smoked: 48 Smoked in Last 30 Days: Yes e-Cigarette/Vaping Use: Currently Using Patient Interested in Nicotine Replacement: Yes Second Hand Smoke Exposure: No Use of substances other than those prescribed or required for medical reasons: No Substance Use Type: Crack/Cocaine Currently Displaying Signs/Symptoms of Drug Intoxication Withdrawal: No Have you been hit, kicked, punched, or otherwise hurt by someone within the past year? If so, by whom?: No Do you feel safe in your current relationship?: No Current Relationship Is there a partner from a previous relationship who is making you feel unsafe now?: No Are you made to feel afraid or neglected: No Advance Directives: No Advance Directives Information Provided: No Advance Directives Date on File: 12/19/23 Do you have a plan to hurt others: No Plan Recently lost weight without trying: No Eating poorly because of decreased appetite: No Nutrition Risks: No Nutritional Risk Patient : No : No Poor oral hygiene: No service: No Current occupational status: disabled 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 Meds Allergies Allergy/AdvReac Type Severity Reaction Status Date / Time doxycycline Allergy Severe Swelling Verified 08/01/24 09:38 varenicline [From CHANTIX] Allergy Severe ANAPHYLAXIS Verified 08/01/24 09:38 azithromycin Allergy Intermediate Rash Verified 08/01/24 09:38 barium sulfate Allergy Intermediate angioedema Verified 08/01/24 09:38 cetirizine Allergy Mild Rash Verified 08/01/24 09:38 famotidine Allergy Mild Rash Verified 08/01/24 09:38 linaclotide [Linzess] Allergy Mild Rash Verified 08/01/24 09:38 Active Medications: Current Medications Acetaminophen (Acetaminophen 325 Mg Tablet) 650 mg PO Q6H PRN PRN Reason: Pain, Mild 1-3,fever,headache Last Admin: 08/01/24 20:41 Dose: 650 mg Albuterol/Ipratropium (Albuterol/Iprat 2.5/0.5mg 3 Ml Ampul.Neb) 3 ml INHALE RQ4H WHILE AWAKE [facility] Last Admin: 08/02/24 08:19 Dose: 3 ml Aspirin (Aspirin Enteric Coated 81 Mg Tablet.) 81 mg PO DAILY [facility] Last Admin: 08/02/24 07:48 Dose: 81 mg Atorvastatin Calcium (Atorvastatin Calcium 20 Mg Tablet) 20 mg PO BEDTIME [facility] Last Admin: 08/01/24 20:42 Dose: 20 mg Calcium Carbonate (Calcium Carbonate 750 Mg Tab.Chew) 750 mg PO Q4H PRN PRN Reason: Heartburn Dextrose (Dextrose 50 % 25 Gm/50 Ml Syringe) 25 gm IVPUSH Q15M PRN; Protocol PRN Reason: per Hypoglycemia Standing Ord. Ferrous Sulfate (Ferrous Sulfate 324 Mg Tablet.) 324 mg PO Q2D@0900 [facility] Last Admin: 08/02/24 07:47 Dose: 324 mg Furosemide (Furosemide 20 Mg Tablet) 20 mg PO DAILY [facility]; Protocol Last Admin: 08/02/24 07:48 Dose: 20 mg Gabapentin (Gabapentin 400 Mg Capsule) 800 mg PO QID [facility] Last Admin: 08/02/24 07:49 Dose: 800 mg Glipizide (Glipizide 5 Mg Tablet) 5 mg PO DAILY [facility] Last Admin: 08/02/24 07:47 Dose: 5 mg Glucose (Glucose Gel 15 Gm Gel..Gram.) 15 gm PO Q15M PRN; Protocol PRN Reason: per Hypoglycemia Standing Ord. Heparin Sodium (Porcine) (Heparin Sodium,Porcine 5,000 Unit/Ml Vial) 5,000 unit SUBCUT Q12H [facility] Last Admin: 08/01/24 23:12 Dose: 5,000 unit Ibuprofen (Ibuprofen 800 Mg Tablet) 800 mg PO BID PRN PRN Reason: Headache Insulin Human Lispro (Insulin Lispro 100 Unit/Ml 3 Ml Vial) 0 unit SUBCUT QIDACHS [facility]; Protocol Last Admin: 08/02/24 07:47 Dose: 4 unit Losartan Potassium (Losartan Potassium 50 Mg Tablet) 50 mg PO DAILY [facility]; Protocol Last Admin: 08/02/24 07:47 Dose: 50 mg Magnesium Hydroxide (Milk Of Magnesia 30 Ml Oral.Susp) 30 ml PO DAILY PRN PRN Reason: Constipation Melatonin (Melatonin 3 Mg Tablet) 6 mg PO BEDTIME PRN PRN Reason: Insomnia Methylprednisolone Sodium Succinate (Methylprednisolone Sod Succ 40 Mg/Ml Vial) 40 mg IVPUSH Q12H [facility] Last Admin: 08/01/24 23:12 Dose: 40 mg Nicotine Polacrilex (Nicotine Polacrilex 2 Mg Gum) 2 mg BUCCAL Q1H PRN PRN Reason: Nicotine Cravings Omeprazole (Omeprazole 20 Mg Capsule.Dr) 20 mg PO DAILY@0630 [facility] Last Admin: 08/02/24 05:56 Dose: 20 mg Ondansetron HCl (Ondansetron Hcl 4 Mg/2 Ml Vial) 4 mg IVPUSH Q8H PRN PRN Reason: Nausea and Vomiting Oseltamivir Phosphate (Oseltamivir Phosphate 75 Mg Capsule) 75 mg PO Q12H [facility] Stop: 08/05/24 21:01 Last Admin: 08/02/24 07:48 Dose: 75 mg Sertraline HCl (Sertraline Hcl 50 Mg Tablet) 150 mg PO DAILY [facility] Last Admin: 08/02/24 07:47 Dose: 150 mg Sodium Chloride (0.9 % Sodium Chloride Flush 3 Ml Syringe) 3 ml IVFLUSH QSHIFT [facility] Last Admin: 08/02/24 07:49 Dose: 3 ml Theophylline (Theophylline Anhydrous Er 400 Mg Tab.Er.24h) 400 mg PO BID [facility] Last Admin: 08/02/24 07:48 Dose: 400 mg Tizanidine HCl (Tizanidine Hcl 4 Mg Tablet) 4 mg PO Q12H PRN PRN Reason: muscle spasm Topiramate (Topiramate 25 Mg Tablet) 25 mg PO BID [facility] Last Admin: 08/02/24 07:47 Dose: 25 mg Home Medications ?Medication ?Instructions ?Recorded ?Confirmed ?Last Taken ?Type calcium 500 mg (as 1 tab PO DAILY 06/26/24 08/01/24 07/16/24 History carbonate)-vitamin D3 10 mcg (400 unit) tablet albuterol sulfate 2.5 mg/3 mL 2.5 mg inhalation Q4H PRN 07/13/24 08/01/24 Unknown History (0.083 %) solution for nebulization Shortness Of Breath/Wheezing ibuprofen 800 mg tablet 800 mg PO BID PRN Headache 07/17/24 08/01/24 Unknown History losartan 50 mg tablet 50 mg PO DAILY 07/17/24 08/01/24 07/16/24 History ipratropium 0.5 mg-albuterol 3 mg 3 ml inhalation QID PRN Shortness 08/01/24 08/01/24 Unknown History (2.5 mg base)/3 mL nebulization Of Breath Or Wheezing soln Physical Exam 2 Vital Signs: Vital Signs: Last Vital Signs Temp 97.8 F 08/02/24 07:16 Pulse 71 08/02/24 08:21 Resp 18 08/02/24 08:21 BP 140/85 H 08/02/24 07:16 Pulse Ox 98 08/02/24 07:16 O2 Del Method CPAP 08/02/24 07:16 O2 Flow Rate 3.0 08/01/24 15:00 BMI result Body Mass Index 33.6 Const: General: no acute distress and alert Nutritional Appearance: obese Orientation/consciousness: Other orientation findings ( oriented) HEENT: Head: Yes atraumatic Eyes: General: appearance normal, both eyes and all related structures S clerae: sclerae normal EOM: EOMs intact bilaterally Neck: Neck: Yes supple Lymphatic: no lymphadenopathy noted Resp: Effort & Inspection: normal respiratory effort and no use of accessory muscles Auscultation: clear to auscultation bilaterally Cardio: Rate: regular rate Rhythm: regular rhythm Heart sounds: no gallops, no murmurs and no rubs Skin: General skin exam: other ( warm) Extrem: General: No clubbing, No cyanosis and No edema Results Laboratory Findings 08/02/24 07:42 08/02/24 07:42 Abnormal lab findings: Abnormal Labs 08/01/24 08/01/24 08/01/24 10:23 12:08 13:35 WBC 16.1 H RBC 5.72 H D Hgb MCV 78.0 L MCH 22.9 L MCHC 29.4 L RDW 19.7 H MPV 9.0 L Neut % (Auto) 82.8 H Lymph % (Auto) 8.6 L Lymph # (Auto) Abs Immat Gran (auto) 0.06 H Absolute Neuts (auto) 13.4 H VBG HCO3 30 H BUN POC Glucose 233 H Random Glucose 149 H Influenza Type A (PCR) POSITIVE A 08/01/24 08/01/24 08/02/24 16:17 20:00 07:04 WBC RBC Hgb MCV MCH MCHC RDW MPV Neut % (Auto) Lymph % (Auto) Lymph # (Auto) Abs Immat Gran (auto) Absolute Neuts (auto) VBG HCO3 BUN POC Glucose 272 H 227 H 213 H Random Glucose Influenza Type A (PCR) 08/02/24 07:42 WBC RBC Hgb 11.9 L MCV 76.6 L MCH 22.7 L MCHC 29.6 L RDW 19.8 H MPV Neut % (Auto) 83.1 H Lymph % (Auto) 11.8 L Lymph # (Auto) 1.0 L Abs Immat Gran (auto) Absolute Neuts (auto) VBG HCO3 BUN 30 H POC Glucose Random Glucose 209 H Influenza Type A (PCR) Assessment and Plan (1) Acute exacerbation of chronic obstructive airways disease: Status: Acute (2) Obesity hypoventilation syndrome: Status: Acute (3) HENRY (obstructive sleep apnea): Status: Acute (4) Influenza A: Status: Acute Plan Impression: 54-year-old lady with underlying severe asthma/COPD overlap syndrome admitted with an acute exacerbation secondary to influenza a, now recovering well. Recommendations: Agree with current therapeutic regimen including systemic glucocorticoids and nebulized bronchodilators. Taper off systemic glucocorticoids. Consider switching CPAP to nocturnal BiPAP 06/04. Procedures Date of Service Date of Service: 08/02/24
[2024-08-02] MEDS: Calcium Carbonate 750 MG TAB.CHEW PO (10:37)
[2024-08-02 11:30] LABS: Glucose, Whole Blood 117 mg/dL (60-115)
[2024-08-02] MEDS: Heparin Sodium,Porcine 5,000 UNIT/ML VIAL 5000 UNIT SUBCUT ×2 (12:53→22:34)
[2024-08-02] MEDS: methylPREDNISolone Sod Succ 40 MG/ML VIAL IVPUSH ×2 (12:54→22:34)
[2024-08-02 13:41] LABS: Amphetamine Screen Urine Not Detected (Not Detect); Barbiturates, Urine Not Detected (Not Detect); Benzodiazepines Screen Urine Not Detected (Not Detect); Buprenorphine Scr Not Detected (Not Detect); Cannabinoid Screen Urine Not Detected (Not Detect); Cocaine Screen Urine POSITIVE (Not Detect); Fentanyl, urine Not Detected (Not Detect); Methadone Screen, Urine Not Detected (Not Detect); Opiate Screen Urine Not Detected (Not Detect); Oxycodone Screen Urine Not Detected (Not Detect); Phencyclidine Screen Urine Not Detected (Not Detect)
[2024-08-02 16:40] LABS: Glucose, Whole Blood 330 mg/dL (60-115)
[2024-08-02 20:33] LABS: Glucose, Whole Blood 236 mg/dL (60-115)
[2024-08-02] MEDS: Atorvastatin Calcium 20 MG TABLET PO (20:56)
[2024-08-03 01:07] VITALS: RESP 18
[2024-08-03] MEDS: Calcium Carbonate 750 MG TAB.CHEW PO ×2 (01:37→09:28)
[2024-08-03 03:14] VITALS: BP 138/74; PULSE 92; RESP 18; TEMP 36; O2SAT 96
[2024-08-03] MEDS: Omeprazole 20 MG CAPSULE.DR PO (06:04)
[2024-08-03 07:12] LABS: Glucose, Whole Blood 228 mg/dL (60-115)
[2024-08-03] MEDS: Theophylline Anhydrous ER 400 MG TAB.ER.24H PO (07:39)
[2024-08-03] MEDS: glipiZIDE 5 MG TABLET PO (07:39)
[2024-08-03] MEDS: Sertraline HCL 50 MG TABLET 150 MG PO (07:39)
[2024-08-03] MEDS: Topiramate 25 MG TABLET PO (07:40)
[2024-08-03] MEDS: Aspirin Enteric Coated 81 MG TABLET.DR PO (07:40)
[2024-08-03] MEDS: Furosemide 20 MG TABLET PO (07:40)
[2024-08-03] MEDS: Oseltamivir Phosphate 75 MG CAPSULE PO (07:40)
[2024-08-03] MEDS: Losartan Potassium 50 MG TABLET PO (07:40)
[2024-08-03] MEDS: Insulin Lispro 100 UNIT/ML 3 ML VIAL SUBCUT (07:41)
[2024-08-03] MEDS: 0.9 % Sodium Chloride Flush 3 ML SYRINGE IVFLUSH (07:41)
[2024-08-03] MEDS: Gabapentin 400 MG CAPSULE 800 MG PO (07:41)
[2024-08-03 08:00] VITALS: BP 149/76; PULSE 92; RESP 16; TEMP 36.6; O2SAT 100
--- NOTE | 2024-08-03 08:44 | P.DS_ITS ---
DS: Providers Provider Date of Service: 08/03/24 Date of admission: 08/01/24 12:03 Date of discharge: 08/03/24 Primary care physician: STEPHEN LazcanoPDanita Consults: 08/01/24 12:15 Consult to Pulmonology Routine Consulting Provider: [facility] [place] Pulmonology Services Reason for consultation: recurrent resp failure DS: Diagnosis Discharge Diagnosis (1) Cocaine use disorder: Status: Acute DS: Summary Hospital Course Hospital Course: History and physical as per admitting provider. 54-year-old female with past medical history of COPD on 3 L nasal cannula home O2, diabetes, obesity hypoventilation syndrome, obstructive sleep apnea, osteoarthritis, asthma, hypertension, GERD, tobacco use and cocaine abuse presented to the ER with complaints of shortness of breath and cough. She has had multiple hospital admissions in 2023, most recent evaluation here on 07/17/2024,requiring admission for COPD exacerbation. Currently smokes a half a pack a day and uses cocaine. Chest x-ray negative for consolidation or effusion, no fever leukocytosis noted. Flu A positive, negative RSV and COVID. In the ER, patient received a dose of Solu-Medrol, Tamiflu, albuterol and a nicotine patch. She will be admitted for further management and treatment of acute respiratory failure secondary to COPD and flu a. 54-year-old woman treated for acute respiratory failure secondary to COPD and influenza A. Patient treated with scheduled DuoNebs, IV steroids and Tamiflu. Patient is on oxygen at home and will continue with this. Patient encouraged to stop smoking and stop using cocaine as these both can exacerbate her chronic lung disease. She was seen evaluated by pulmonology with no further recommendation but completion of treatment for COPD exacerbation and flu. Diabetes mellitus type 2. Continue home medications Hyperlipidemia. Continue statin Hypertension. Stable blood pressure during hospitalization. Continue home medications Obstructive sleep apnea. Continue CPAP at home Mental health. Continue home medications Obesity class 1. Discussed importance of weight management as this may be contributing to worsening of other comorbidities #Do not smoke or let others smoke while you are using oxygen. Put up no smoking signs in your home. Do not use oxygen near open flames, such as candles, fireplaces, gas stoves, or hot water heaters. Do not use it near electric razors, hair dryers, heating pads, or anything that may spark. Keep a working fire extinguisher in your home where it is easy to get to. Time Attestation Discharge Coordination Time (in mins): 42 Quality: Safe Use of Opioids Does Pt have an Active Cancer Diagnosis on the Problem List?: No Quality: Stroke Does the patient have a stroke diagnosis?: No Physical Exam Vital Signs: Vital Signs: Last Vital Signs Temp 97.8 F 08/03/24 08:00 Pulse 92 08/03/24 08:00 Resp 16 08/03/24 08:00 BP 149/76 H 08/03/24 08:00 Pulse Ox 100 08/03/24 08:00 O2 Del Method Nasal Cannula 08/03/24 08:00 O2 Flow Rate 3 08/03/24 08:00 BMI result Body Mass Index 33.6 Appearing in no acute distress head is normocephalic atraumatic eyes pupils are PERRLA sclera is anicteric mouth throat mucous membranes are intact and moist neck is supple no lymphadenopathy, no JVD noted lung sounds are clear to auscultation heart regular rate rhythm, clear S1, S2 positive bowel sounds, abdomen is soft, nontender neuro patient is alert x3, no focal deficits DS: Data Data Completed and Pending Completed studies during hospitalization [Text1]: Procedures Assistance with Respiratory Ventilation, Less than 24 Consecutive Hours, Continuous Positive Airway Pressure (07/13/24) Insertion of Endotracheal Airway into Trachea, Via Natural or Artificial Opening (11/03/20) Insertion of Infusion Device into Superior Vena Cava, Percutaneous Approach (11/03/20) Respiratory Ventilation, Less than 24 Consecutive Hours (11/03/20) Labs on day of discharge: Laboratory Results - last 24 hr 08/02/24 08/02/24 08/02/24 11:24 13:22 16:28 POC Glucose 117 H 330 H Urine Opiates Screen Not Detected Ur Buprenorphine Scrn Not Detected Ur Oxycodone Screen Not Detected Urine Methadone Screen Not Detected Urine Fentanyl Screen Not Detected Ur Barbiturates Screen Not Detected Ur Phencyclidine Scrn Not Detected Ur Amphetamines Screen Not Detected U Benzodiazepines Scrn Not Detected Urine Cocaine Screen POSITIVE H U Marijuana (THC) Screen Not Detected 08/02/24 08/03/24 20:28 07:08 POC Glucose 236 H 228 H Urine Opiates Screen Ur Buprenorphine Scrn Ur Oxycodone Screen Urine Methadone Screen Urine Fentanyl Screen Ur Barbiturates Screen Ur Phencyclidine Scrn Ur Amphetamines Screen U Benzodiazepines Scrn Urine Cocaine Screen U Marijuana (THC) Screen Discharge Plan Discharge Anticipated Discharge Date/Time: 08/03/24 08:40 Patient Disposition: Home, Self-Care Discharge Diagnosis: Acute hypoxic respiratory failure COPD Influenza a Referrals: Joe Hale FNP- [Primary Care Provider] - 1 Week Discharge Medications: New oseltamivir [Tamiflu] 75 mg Capsule 75 mg PO Q12H Qty: 6 0RF prednisone 10 mg tablet See Taper PO DIRECTED Qty: 30 0RF Taper: Prednisone 40 mg daily for 3 Days and 0 Hour 30 mg daily for 3 Days and 0 Hour 20 mg daily for 3 Days and 0 Hour 10 mg daily for 3 Days and 0 Hour Rx Instructions: see taper instructions Continued (DME) lancets [FreeStyle Lancets] 28 gauge misc See Rx Instructions .ROUTE .MEDSUPPLY Qty: 100 1RF Rx Instructions: Use to check blood sugar daily or if symptomatic hypo/hypergylcemia (DME) 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 meter [FreeStyle Lite Meter] Kit See Rx Instructions .ROUTE .MEDSUPPLY Qty: 1 0RF Rx Instructions: Use to check blood sugar daily or if symptomatic for hypo/hyperglycemia (DME) FreeStyle Lite Strips Strip See Rx Instructions .ROUTE .MEDSUPPLY Qty: 100 1RF Rx Instructions: Use to check blood sugar daily or if symptomatic hypo/hypergylcemia furosemide 20 mg tablet 20 mg PO DAILY Qty: 90 3RF aspirin 81 mg tablet,delayed release (DR/EC) 81 mg PO DAILY 90 Days Qty: 90 1RF theophylline 400 mg tablet extended release 24 hr 400 mg PO BID 90 Days Qty: 180 4RF glipizide 5 mg tablet 5 mg PO DAILY Qty: 90 0RF albuterol sulfate [Ventolin HFA] 90 mcg/actuation HFA aerosol inhaler 2 puff inhalation Q6H PRN (Reason: for wheezing) Qty: 1 6RF Stiolto Respimat 2.5-2.5 mcg/actuation mist 2 puff INHALATION DAILY Qty: 4 6RF tizanidine 4 mg tablet 4 mg PO Q12H PRN (Reason: muscle spasm) 30 Days Qty: 60 0RF Rx Instructions: do not take concurrently with famotidine gabapentin 800 mg tablet 800 mg PO QID 30 Days Qty: 120 0RF acetaminophen 650 mg tablet extended release 650 mg PO Q12H PRN (Reason: pain) 30 Days Qty: 60 0RF atorvastatin 20 mg tablet 20 mg PO BEDTIME 90 Days Qty: 90 0RF esomeprazole magnesium 20 mg capsule,delayed release(DR/EC) 20 mg PO DAILY Qty: 30 3RF calcium carbonate-vitamin D3 500 mg-10 mcg (400 unit) tablet 1 tab PO DAILY albuterol sulfate 2.5 mg /3 mL (0.083 %) solution for nebulization 2.5 mg inhalation Q4H PRN (Reason: Shortness Of Breath/Wheezing) ferrous sulfate 324 mg (65 mg iron) tablet,delayed release (DR/EC) 324 mg PO Q OTHER DAY Qty: 15 0RF (DME) mary anne Seec See Rx Instructions .Route Qty: 1 0RF Rx Instructions: As directed ibuprofen 800 mg tablet 800 mg PO BID PRN (Reason: Headache) Rx Instructions: please use sparingly due to diabetes losartan 50 mg tablet 50 mg PO DAILY topiramate 25 mg tablet 25 mg PO BID Qty: 60 0RF ipratropium-albuterol 0.5 mg-3 mg(2.5 mg base)/3 mL solution for nebulization 3 ml INHALATION QID PRN (Reason: Shortness Of Breath Or Wheezing) sertraline 100 mg tablet 150 mg PO DAILY 90 Days Qty: 135 0RF Discharge Orders: Discharge Order (Routine); Ordered 08/03/24 Ordered By: Macie Rhodes Diet: Advance to usual diet Activity on Discharge: As tolerated Stand Alone Forms: Patient Portal Discharge page Print Language: Portuguese Activity Restrictions/Additional Instructions: Continue home oxygen of 2 L Do not smoke or let others smoke while you are using oxygen. Put up no smoking signs in your home. Do not use oxygen near open flames, such as candles, fireplaces, gas stoves, or hot water heaters. Do not use it near electric razors, hair dryers, heating pads, or anything that may spark. Keep a working fire extinguisher in your home where it is easy to get to. Care Plan Goals: You should quit smoking, seek outpatient assistance for help with this. You should not use cocaine which can exacerbate lung disease. Health Concerns: Acute on chronic hypoxic respiratory failure COPD Influenza a Plan of Treatment: Follow-up with primary care provider as needed Take all medications as prescribed Assessment: See discharge summary
[2024-08-03] MEDS: Albuterol/Iprat 2.5/0.5MG 3 ML AMPUL.NEB INHALE (08:50)
[2024-08-03 08:51] VITALS: PULSE 92; RESP 16; RESP 18; O2SAT 99
--- NOTE | 2024-08-03 09:40 | MHC.CM.PN ---
Patient medically cleared for dc home w/ resumption of [facility] services. Will transport home via [employer] per patient request. BLS offered and patient declined.
== END 2024-08-03 09:48 | disposition home or self-care (01) | DRG 113 ==
LOC: HO.ED 11:36 → HO.EDOVER 12:12 → HO.S3 13:55
PROVIDERS: Internal Medicine Pulmonary Disease; Admitting Provider Nurse Practitioner Acute Care; Emergency Provider Emergency Medicine; PCP Nurse Practitioner Family; Visit Provider Nurse Practitioner Acute Care
DX: J10.1 Influenza due to other identified influenza virus with other respiratory manifestations (principal); J96.01 Acute respiratory failure with hypoxia; J44.1 Chronic obstructive pulmonary disease with (acute) exacerbation; E66.2 Morbid (severe) obesity with alveolar hypoventilation; J45.901 Unspecified asthma with (acute) exacerbation; Z99.81 Dependence on supplemental oxygen; F17.210 Nicotine dependence, cigarettes, uncomplicated; Z71.6 Tobacco abuse counseling; E11.9 Type 2 diabetes mellitus without complications; F14.90 Cocaine use, unspecified, uncomplicated; Z68.33 Body mass index [BMI] 33.0-33.9, adult; Z71.3 Dietary counseling and surveillance; Z20.822 Contact with and (suspected) exposure to COVID-19; Z79.82 Long term (current) use of aspirin; Z79.84 Long term (current) use of oral hypoglycemic drugs; Z79.899 Other long term (current) drug therapy
CPT/HCPCS: 0241U; 36415; 71045; 80053; 80307; 82803; 82947; 85025; 94640; 94660; 99285; J1644; J2919

== ENCOUNTER → 2024-08-01 10:26 | Outpatient (BNV) | payer OTHER, SELFPAY | PROVIDERS: Emergency Provider Emergency Medicine; PCP Nurse Practitioner Family; Visit Provider Radiology Diagnostic Radiology | DX: R06.02 Shortness of breath (principal) | CPT/HCPCS: 71045 ==

== ENCOUNTER → 2024-08-01 12:03 | Outpatient (BNV) | payer OTHER, SELFPAY | PROVIDERS: Admitting Provider Nurse Practitioner Acute Care; Emergency Provider Emergency Medicine; PCP Nurse Practitioner Family; Visit Provider Nurse Practitioner Acute Care | DX: F14.10 Cocaine abuse, uncomplicated (principal) | CPT/HCPCS: 99223; 99232; 99239 ==

== ENCOUNTER → 2024-08-01 12:03 | Outpatient (BNV) | payer OTHER, SELFPAY | PROVIDERS: Admitting Provider Nurse Practitioner Acute Care; Emergency Provider Emergency Medicine; PCP Nurse Practitioner Family; Visit Provider Internal Medicine Pulmonary Disease | DX: J44.1 Chronic obstructive pulmonary disease with (acute) exacerbation (principal); J10.1 Influenza due to other identified influenza virus with other respiratory manifestations; G47.33 Obstructive sleep apnea (adult) (pediatric) | CPT/HCPCS: 99222 ==

== ENCOUNTER 2024-09-09 09:43 | Outpatient (AMB) | payer OTHER, SELFPAY ==
[2024-09-09 10:01] VITALS: BP 108/58; PULSE 90; O2SAT 94; BMI 33.7
--- NOTE | 2024-09-09 10:01 | MHC.OFFVIS ---
Vital Signs 09/09/24 10:01 Height 4 ft 11 in Weight 167 lb BMI 33.7 BP 108/58 L Blood Pressure Location Rt brachial Position Sitting Pulse 90 Pulse Source Doppler Pulse Oximetry (%) 94 Oxygen Delivery Method Nasal Cannula Oxygen Flow Rate 2 Intake Visit Reasons: copd Allergies doxycycline Allergy (Severe, Verified 09/09/24 10:04) Swelling varenicline [From CHANTIX] Allergy (Severe, Verified 09/09/24 10:04) ANAPHYLAXIS azithromycin Allergy (Intermediate, Verified 09/09/24 10:04) Rash barium sulfate Allergy (Intermediate, Verified 09/09/24 10:04) angioedema cetirizine Allergy (Mild, Verified 09/09/24 10:04) Rash famotidine Allergy (Mild, Verified 09/09/24 10:04) Rash linaclotide [Linzess] Allergy (Mild, Verified 09/09/24 10:04) Rash HPI HPI copd: Details: 54-year-old lady, active 30+ pack-year smoker, with underlying history of severe asthma/COPD overlap syndrome on 2-3 L of supplemental oxygen recurrently exacerbated by cocaine use, also severe obstructive sleep apnea with obesity hypoventilation controlled on nocturnal BiPAP with recent admission to [facility] for influenza. Now recovered essentially to baseline. [facility] Medical History (Updated 09/09/24 @ 10:24 by Kolby Kessler MD) Obesity hypoventilation syndrome COPD (chronic obstructive pulmonary disease) Cocaine use disorder Chronic lung disease Hypoxic respiratory failure Nocturnal hypoxemia HENRY (obstructive sleep apnea) Diabetes mellitus COPD exacerbation Crack cocaine use Hyperkalemia Metabolic acidosis Leukocytosis Chest discomfort Chronic renal failure, stage 2 (mild) SOB (shortness of breath) Asthma Smoker Rotator cuff tendonitis GERD (gastroesophageal reflux disease) Chronic idiopathic constipation Bustos's esophagus Depression High triglycerides Gastroparesis Carpal tunnel syndrome of right wrist Nausea & vomiting Hernia Acute and chronic respiratory failure, unspecified whether with hypoxia or hypercapnia HTN (hypertension) Obesity (BMI 30-39.9) Knee pain, bilateral Surgical History History of cholecystectomy (~1988) History of carpal tunnel release Hx of tubal ligation History of pubovaginal sling (~2015) History of umbilical hernia repair (~2001) Hx of section History of open reduction and internal fixation (ORIF) procedure History of esophagogastroduodenoscopy (EGD) Family History Father Heart disease HENRY (obstructive sleep apnea) Family history of breast cancer Mother Asthma Emphysema, unspecified Bronchitis Smoker Alcoholism Bone marrow disease Maternal Grandmother Diabetes Social History Household Members: Family Household Members Other:: sister Housing: House Are you a primary critical care educator to a significant other at home: No Do you presently have visiting nurse or other home services: Yes (vna) Unable to assess alcohol history related to: Unknown Alcohol intake: former Comment: Sleeping Patient Tobacco Use Status: Current everyday Tobacco user Tobacco use type: Cigarette Cigarette Packs Per Day: 1 Cigarettes Per Day: 20.0 Years Smoked: 48 e-Cigarette/Vaping Use: Currently Using Second Hand Smoke Exposure: No Substance Use Type: Crack/Cocaine Advance Directives Date on File: 12/19/23 service: No Current occupational status: disabled 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 Review of Systems Const Denies daytime sleepiness, Denies excessive sweating, Denies fatigue, Denies fever(s), Denies lethargy, Denies malaise, Denies night sweats, Denies snoring and Denies weight loss Eyes Denies blurry vision and Denies itchy eyes ENT Denies nasal congestion, Denies post nasal drip, Denies sinus pain, Denies sinus pressure and Denies other ( Thrush) Card Denies chest pain, Denies pedal edema, Denies dyspnea, Denies orthopnea and Denies paroxysmal nocturnal dyspnea Resp Denies cough, Denies hemoptysis, Denies excessive phlegm production, Denies dyspnea, Denies snoring and Denies wheezing GI Denies abdominal pain and Denies heartburn Musc Denies myalgias, Denies arthralgias and Denies joint swelling Skin/Breast Denies rash Neuro Denies memory loss and Denies seizure-like activity Psych Denies abnormal sleep pattern, Denies anxiety and Denies memory loss Endo Denies excessive sweating, Denies fatigue and Denies heat intolerance José/Lymph Denies easy bruising Aller/Immun Denies itchy eyes, Denies seasonal rhinorrhea and Denies wheezing Physical Exam Vital Signs: Last Vital Signs Pulse 90 09/09/24 10:01 BP 108/58 L 09/09/24 10:01 Pulse Ox 94 09/09/24 10:01 Oxygen Delivery Method Nasal Cannula 09/09/24 10:01 Oxygen Flow Rate 2 09/09/24 10:01 BMI result Body Mass Index 33.7 Const General: no acute distress and alert Nutritional Appearance: not obese Orientation/consciousness: Other orientation findings ( oriented) HEENT Head: Yes atraumatic Eyes General: appearance normal, both eyes and all related structures Sclerae: sclerae normal EOM: EOMs intact bilaterally Neck Neck: Yes supple Lymphatic: no lymphadenopathy noted Resp Effort & Inspection: normal respiratory effort and no use of accessory muscles Auscultation: clear to auscultation bilaterally Cardio Rate: regular rate Rhythm: regular rhythm Heart sounds: no gallops, no murmurs and no rubs Skin General skin exam: other ( warm) Extrem General: No clubbing, No cyanosis and No edema Assessment & Plan Assessment & Plan (1) COPD (chronic obstructive pulmonary disease): Code(s): J44.9 - Chronic obstructive pulmonary disease, unspecified Category: Medical Qualifiers: COPD type: COPD with acute lower respiratory infection Qualified Code(s): J44.0 - Chronic obstructive pulmonary disease with (acute) lower respiratory infection (2) Obesity hypoventilation syndrome: Code(s): E66.2 - Morbid (severe) obesity with alveolar hypoventilation Category: Medical (3) Supplemental oxygen dependent: Code(s): Z99.81 - Dependence on supplemental oxygen Category: Medical (4) Smoker: Code(s): F17.200 - Nicotine dependence, unspecified, uncomplicated Category: Medical Plan Respiratory symptoms now at baseline and controlled current regimen Stiolto, duo nebs, and albuterol MDI. Patient continues to require supplemental oxygen at 2-3 L continuous flow to maintain normal oximetry. She is more compliant with her nocturnal BiPAP. Coding Level of Care Code Est Pt Level 4 (25780) Complex EM visit Add On G2211 Diagnoses Chronic obstructive pulmonary disease with acute lower respiratory infection J44.0 COPD type: COPD with acute lower respiratory infection Obesity hypoventilation syndrome E66.2 Supplemental oxygen dependent Z99.81 Smoker F17.200
== END 2024-09-09 10:18 | disposition home or self-care (01) ==
LOC: HO.HPS 09:44
PROVIDERS: PCP Nurse Practitioner Family; Visit Provider Internal Medicine Pulmonary Disease
DX: J44.0 Chronic obstructive pulmonary disease with (acute) lower respiratory infection (principal); E66.2 Morbid (severe) obesity with alveolar hypoventilation; Z99.81 Dependence on supplemental oxygen; F17.200 Nicotine dependence, unspecified, uncomplicated
CPT/HCPCS: 99214; G2211

== ENCOUNTER → 2024-09-09 09:43 | Outpatient (BNVA) | payer OTHER, SELFPAY | PROVIDERS: PCP Nurse Practitioner Family; Visit Provider Internal Medicine Pulmonary Disease | DX: J44.0 Chronic obstructive pulmonary disease with (acute) lower respiratory infection (principal); E66.2 Morbid (severe) obesity with alveolar hypoventilation; F17.210 Nicotine dependence, cigarettes, uncomplicated; Z99.81 Dependence on supplemental oxygen; Z68.33 Body mass index [BMI] 33.0-33.9, adult | CPT/HCPCS: 99212 ==

== ENCOUNTER 2024-09-11 01:20 | Emergency (ER) | payer OTHER, SELFPAY ==
--- NOTE | ~2024-09-11 | XR_ITS ---
CLINICAL HISTORY: sob 1 view chest x-ray. Comparison: CR - XR CHEST 1V - 08/01/24 10:27 EST Findings: Mild interstitial prominence redemonstrated within the bilateral lungs. No pneumothorax or significant pleural effusion visualized. Heart size is borderline enlarged. Impression: 1. Borderline cardiomegaly with redemonstration of mild interstitial prominence bilaterally. This may be related to an atypical/viral infection and/or chronic lung changes/scarring. No significant interval change. This document has been electronically signed by: Omega Santiago MD on 09/11/2024 02:49:46
[2024-09-11 01:29] VITALS: BP 123/108; BP 98/58; PULSE 70; PULSE 99; RESP 21; O2SAT 97; O2SAT 99; BMI 33.3
--- NOTE | 2024-09-11 01:33 | ECG_ITS ---
Test Reason : SOB Blood Pressure : */* mmHG Vent. Rate : 100 BPM Atrial Rate : 100 BPM P-R Int : 126 ms QRS Dur : 82 ms QT Int : 354 ms P-R-T Axes : 62 159 24 degrees QTcB Int : 456 ms Sinus rhythm with Premature atrial complexes Possible Right ventricular hypertrophy Possible Inferior infarct , age undetermined Abnormal ECG When compared with ECG of 17-Jul-2024 15:31, No significant change was found Referred By: Ly Bazan Electronically Signed By: DAVIS WALKER
--- NOTE | 2024-09-11 01:37 | ED.SOB ---
HPI - SOB/Dyspnea General Chief Complaint: Dyspnea Stated Complaint: DIFF BREATHING Time Seen by Provider: 09/11/24 01:31 Source: patient and EMS Mode of arrival: EMS Limitations: no limitations History of Present Illness ED Provider: Dr. Ly Bazan HPI Narrative: Patient comes to the emergency room complaining of shortness of breath. Patient known to be a chronic smoker, history of COPD oxygen dependent 3 L at home. Patient states that for the last few days she has been coughing more than usual, productive sputum, no fever chills. No chest pain or shortness of breath. No lower extremity edema. Related Data Home Medications ?Medication ?Instructions ?Recorded ?Confirmed calcium 500 mg (as 1 tab PO DAILY 06/26/24 08/01/24 carbonate)-vitamin D3 10 mcg (400 unit) tablet albuterol sulfate 2.5 mg/3 mL 2.5 mg inhalation Q4H PRN 07/13/24 08/01/24 (0.083 %) solution for nebulization Shortness Of Breath/Wheezing ibuprofen 800 mg tablet 800 mg PO BID PRN Headache 07/17/24 08/01/24 losartan 50 mg tablet 50 mg PO DAILY 07/17/24 08/01/24 ipratropium 0.5 mg-albuterol 3 mg 3 ml inhalation QID PRN Shortness 08/01/24 08/01/24 (2.5 mg base)/3 mL nebulization Of Breath Or Wheezing soln Previous Rx's ?Medication ?Instructions ?Recorded lancets 28 gauge (FreeStyle #100 ea 01/20/21 Lancets) 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 meter (FreeStyle #1 ea 03/01/22 Lite Meter kit) blood sugar diagnostic (FreeStyle #100 ea 09/16/22 Lite Strips) furosemide 20 mg tablet 20 mg PO DAILY #90 tabs 12/09/23 aspirin 81 mg tablet,delayed 81 mg PO DAILY 90 days #90 tabs 01/01/24 release theophylline 400 mg 400 mg PO BID 90 days #180 tabs 01/27/24 tablet,extended release 24 hr albuterol sulfate 90 mcg/actuation 2 puff inhalation Q6H PRN for 04/10/24 aerosol inhaler (Ventolin HFA) wheezing #1 ea tiotropium 2.5 mcg-olodaterol 2.5 2 puff inhalation DAILY #4 grams 04/28/24 mcg/actuation mist for inhalation (Stiolto Respimat) acetaminophen 650 mg 650 mg PO Q12H PRN pain 30 days 07/07/24 tablet,extended release #60 tabs ferrous sulfate 324 mg (65 mg 324 mg PO Q OTHER DAY #15 tabs 07/14/24 iron) tablet,delayed release walker #1 ea 07/14/24 topiramate 25 mg tablet 25 mg PO BID #60 tabs 07/18/24 atorvastatin 20 mg tablet 20 mg PO BEDTIME 90 days #90 tabs 07/21/24 sertraline 100 mg tablet 150 mg (1.5 x 100 mg) PO DAILY 90 07/22/24 days #135 tabs esomeprazole magnesium 20 mg 20 mg PO DAILY #30 caps 07/25/24 capsule,delayed release glipizide 5 mg tablet 5 mg PO DAILY #90 tabs 08/05/24 gabapentin 800 mg tablet 800 mg PO QID Pain 30 days #120 09/03/24 tabs tizanidine 4 mg tablet 4 mg PO Q12H PRN muscle spasm 30 09/03/24 days #60 tabs levofloxacin 500 mg tablet 500 mg PO DAILY #6 tabs 09/11/24 prednisone 50 mg tablet 50 mg PO DAILY #4 tabs 09/11/24 Allergies Allergy/AdvReac Type Severity Reaction Status Date / Time doxycycline Allergy Severe Swelling Verified 09/11/24 01:36 varenicline [From CHANTIX] Allergy Severe ANAPHYLAXIS Verified 09/11/24 01:36 azithromycin Allergy Intermediate Rash Verified 09/11/24 01:36 barium sulfate Allergy Intermediate angioedema Verified 09/11/24 01:36 cetirizine Allergy Mild Rash Verified 09/11/24 01:36 famotidine Allergy Mild Rash Verified 09/11/24 01:36 linaclotide [Linzess] Allergy Mild Rash Verified 09/11/24 01:36 Review of Systems Review of Systems: Constitutional : No Weight loss, No Fever, No Chills, No Night Sweats, No Fatigue, No Malaise ENT/Mouth : No Hearing loss, No Ear Pain, No Nasal Congestion, No Sinus Pain, No Hoarseness, No sore throat, No Rhinorrhea, No Swallowing Difficulty Eyes: No Eye Pain, No Swelling, No Redness, No Foreign Body, No Discharge, No Vision Changes Cardiovascular : No Chest Pain, Denies lower extremity edema or palpitations Respiratory : Complaining of productive cough for the last 2 days, wheezing, shortness of breath. Gastrointestinal : No Nausea, No Vomiting, No Diarrhea, No Constipation, No abdominal Pain, No Hematochezia, No Melena Genitourinary : no irregular bleeding, No Dysuria, No Urinary Frequency, No Hematuria, No Urinary Incontinence, No Urgency, No Flank Pain, No Urinary Flow Changes, No Hesitancy Musculoskeletal : No joint pain, No Myalgias, No Joint Swelling Skin : No Skin Lesions, No rash Neuro : No Weakness, No Numbness, No Paresthesias, No Loss of Consciousness, No Dizziness, No Headache Psych : No Anxiety/Panic, No Depression, No SI/HI/AH/VH, No Social Issues, Heme/Lymph: No Bruising, No Bleeding,No Lymphadenopathy Endocrine : No Polyuria, No Polydipsia, No Temperature Intolerance FOR[facility] Past Medical History Medical History Obesity hypoventilation syndrome COPD (chronic obstructive pulmonary disease) Cocaine use disorder Chronic lung disease Hypoxic respiratory failure Nocturnal hypoxemia HENRY (obstructive sleep apnea) Diabetes mellitus COPD exacerbation Crack cocaine use Hyperkalemia Metabolic acidosis Leukocytosis Chest discomfort Chronic renal failure, stage 2 (mild) SOB (shortness of breath) Asthma Smoker Rotator cuff tendonitis GERD (gastroesophageal reflux disease) Chronic idiopathic constipation Bustos's esophagus Depression High triglycerides Gastroparesis Carpal tunnel syndrome of right wrist Nausea & vomiting Hernia Acute and chronic respiratory failure, unspecified whether with hypoxia or hypercapnia HTN (hypertension) Obesity (BMI 30-39.9) Knee pain, bilateral Surgical History History of cholecystectomy (~1988) History of carpal tunnel release Hx of tubal ligation History of pubovaginal sling (~2015) History of umbilical hernia repair (~2001) Hx of section History of open reduction and internal fixation (ORIF) procedure History of esophagogastroduodenoscopy (EGD) Family History Family History Father Heart disease HENRY (obstructive sleep apnea) Family history of breast cancer Mother Asthma Emphysema, unspecified Bronchitis Smoker Alcoholism Bone marrow disease Maternal Grandmother Diabetes Social History Social History Household Members: Family Household Members Other:: sister Housing: House Are you a primary home health caregiver to a significant other at home: No Do you presently have visiting nurse or other home services: Yes ([place]) Unable to assess alcohol history related to: Unknown Alcohol intake: former Comment: Sleeping Patient Tobacco Use Status: Current everyday Tobacco user Tobacco use type: Cigarette Cigarette Packs Per Day: 1 Cigarettes Per Day: 20.0 Years Smoked: 48 Smoked in Last 30 Days: Yes e-Cigarette/Vaping Use: Currently Using Second Hand Smoke Exposure: No Use of substances other than those prescribed or required for medical reasons: Yes Substance Use Type: Crack/Cocaine Substance Use Frequency Other:: few x month, used cocaine 5 days ago Advance Directives: No Advance Directives Information Provided: Yes Advance Directives Date on File: 12/19/23 Do you have a plan to hurt others: No Plan service: No Current occupational status: disabled 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 Physical Exam Vital Signs: Vital Signs: Last Vital Signs Pulse 92 09/11/24 01:52 Resp 24 H 09/11/24 01:52 BP 123/108 H 09/11/24 01:29 Pulse Ox 99 09/11/24 01:29 O2 Del Method Aerosol Mask 09/11/24 01:29 Oxygen Flow Rate 6 09/11/24 01:29 BMI result Body Mass Index 33.3 Const: Other: Appearance: Alert. Oriented X3. No acute distress. Eyes: Pupils equal, round and reactive to light. ENT: Pharynx normal. Neck: Normal inspection. Neck supple. No lymph nodes noted. No crepitus CVS: Normal heart rate and rhythm. Pulses normal. Normal S1 and S2 Respiratory: tachypneic, respiratory rate between 20-30, bilateral wheezing, moderate air movement, speaking full sentences Abdomen: Soft and nontender. No rigidity. No distention. Skin: Skin warm and dry. Normal skin color. Normal skin turgor. Extremities: No lower extremity edema. No Lacerations. No Rash Neuro: Oriented X 3. No motor deficit. No sensory deficit. Moving all extremities. No slurred speech. CN 2 through 12 grossly intact Psych: calm, cooperative, normal affect Course Course Course Narrative: patient receiving IV magnesium, Solu-Medrol, nebulization treatments. Patient empirically being treated with IV fluids Based on ideal weight of 43 kg, patient is obese and levofloxacin, patient has allergies to doxycycline and azithromycin all of patient's labs and imaging pending. Medications Administered Generic Name Dose Route Start Last Admin Trade Name Freq PRN Reason Stop Dose Admin Magnesium Sulfate 2 gm in 50 mls @ 25 mls/hr 09/11/24 01:39 09/11/24 02:05 Magnesium Sulfate/H2o IV 09/11/24 03:38 25 mls/hr ONCE ONE Administration Discontinued Medications Generic Name Dose Route Start Last Admin Trade Name Freq PRN Reason Stop Dose Admin Albuterol Sulfate 2.5 mg 09/11/24 03:30 09/11/24 03:35 Albuterol Sulfate (0.083%) 2.5 Mg/3 Ml Vial.Neb INHALE 09/11/24 03:31 2.5 mg ONCE ONE Administration Albuterol Sulfate 7.5 mg/ 0 mg 09/11/24 01:51 09/11/24 01:53 Albuterol/Ipratropium 3 ml INHALE 09/11/24 01:52 1 each ONCE ONE Administration Sodium Chloride 1,500 mls @ 999 mls/hr 09/11/24 01:32 09/11/24 02:05 Ns IVCONT 09/11/24 03:02 999 mls/hr .Q1H31M ONE Administration Levofloxacin 500 mg in 100 mls @ 100 mls/hr 09/11/24 01:32 09/11/24 03:35 Levaquin IV 09/11/24 02:31 100 mls/hr ONCE ONE Administration Methylprednisolone Sodium Succinate 125 mg 09/11/24 01:39 09/11/24 02:05 Methylprednisolone Sod Succ 125 Mg/2 Ml Vial IVPUSH 09/11/24 01:40 125 mg ONCE ONE Administration Medical Decision Making Medical Decision Making MDM Narrative: my interpretation of labs: At baseline hematology and chemistry, normal lactic acid, normal venous gases, troponin and BNP at baseline. Serology negative for influenza COVID and RSV chest x-ray does not show any acute abnormalities. Patient's vitals are stable, patient on her usual 3 L of oxygen. 03:25: I discussed the labs with the patient, labs look good today. Patient requesting 1 more nebulization treatment, patient states that she nearly feels at baseline after a 2nd nebulization treatment, patient feeling much better. Patient feels well to be discharged home. given patient's past medical history and symptoms, we will treat with antibiotics at home. patient's vitals stable, no episodes of hypotension, vitals at baseline. No fever. Sepsis not suspected. Patient feels well, back to baseline Differential Diagnosis Differential Diagnoses: The differential diagnosis associated with the presentation includes ( Chronic lung disease, chronic respiratory failure. Asthma exacerbation) Admission/Observation Consideration of admission/observation: Escalation of care including admission/observation considered Lab Data MDM Lab Attestation statement: I reviewed the patient's lab results. 09/11/24 01:51 09/11/24 01:51 Labs: Lab Results 09/11/24 09/11/24 Range/Units 01:51 01:59 WBC 16.2 H (4.8-10.8) X10*3/uL RBC 4.65 (4.20-5.50) X10*6/uL Hgb 10.7 L (12.0-16.0) g/dl Hct 35.7 L (37.0-47.0) % MCV 76.8 L (80.0-98.0) fL MCH 23.0 L (27.0-33.0) pg MCHC 30.0 L (31.0-35.0) g/dl RDW 18.2 H (11.0-16.0) % Plt Count 364 (160-400) X10*3/uL MPV 8.9 L (9.4-12.3) fL Immature Gran % (Auto) 0.2 (0.0-0.4) % Neut % (Auto) 59.1 (45-73) % Lymph % (Auto) 30.9 (20-40) % Starr % (Auto) 7.9 (2-11) % Eos % (Auto) 1.5 (0-4) % Baso % (Auto) 0.4 (0-2) % Lymph # (Auto) 5.0 H (1.2-4.9) X10*3/uL Starr # (Auto) 1.3 H (0.1-1.2) X10*3/uL Eos # (Auto) 0.2 (0.0-0.4) X10*3/uL Baso # (Auto) 0.1 (0.0-0.2) X10*3/uL Abs Immat Gran (auto) 0.04 H (0.00-0.03) X10*3/uL Absolute Neuts (auto) 9.6 H (2.0-8.3) x10*3/uL Absolute Nucleated RBC 0.000 (0.0-0.012) X10*3/uL Nucleated RBC % (auto) 0.0 (0.0-0.2) /100WBC VBG pH 7.40 (7.32-7.43) VBG pCO2 43 mmHg VBG pO2 39 mmHg VBG HCO3 27 H (22-26) mmol/L VBG O2 Saturation 72.0 % VBG Base Excess 2.2 mmol/L Sodium 142 (135-145) mmol/L Potassium 3.9 (3.3-5.1) mmol/L Chloride 107 (96-108) mmol/L Carbon Dioxide 25 (22-29) mmol/L Anion Gap 14 (12-20) BUN 15 (9-16) mg/dL Creatinine 0.84 (0.5-1.4) mg/dL Estim Creat Clear Calc 65.9 Estimated GFR > 60 Random Glucose 166 H (60-115) mg/dL Lactic Acid 1.5 (0.5-2.0) mmol/L Calcium 8.9 (8.4-10.2) mg/dL Total Bilirubin 0.1 (0.0-1.0) mg/dL Direct Bilirubin < 0.2 (0.0-0.5) mg/dL AST 13 (5-31) U/L ALT 7 (0-31) U/L Alkaline Phosphatase 98 (39-117) U/L Troponin I High Sens 11.9 (<3.5-17.0) ng/L B-Natriuretic Peptide 59 (<100) pg/mL Total Protein 6.7 (6.5-8.0) g/dL Albumin 3.7 (3.5-5.0) g/dL Influenza Type A (PCR) NEGATIVE (Negative) Influenza Type B (PCR) NEGATIVE (Negative) RSV RNA Qual (PCR) NEGATIVE (Negative) SARS-CoV-2 RNA (RT-PCR) NEGATIVE (Negative) Independent Interpretation I performed an independent interpretation of an: Plain X-Ray Radiology Impression Discussion of test interpretation with radiology: I have reviewed the radiologist's reading. Radiologist Impression: Mild interstitial prominence redemonstrated within the bilateral lungs. No pneumothorax or significant pleural effusion visualized. Heart size is borderline enlarged. Impression: 1. Borderline cardiomegaly with redemonstration of mild interstitial prominence bilaterally. This may be related to an atypical/viral infection and/or chronic lung changes/scarring. No significant interval change. Critical Care Time Critical Care Time Critical Care Time: Yes Total Critical Care Time: 60 Attestation: I have personally provided critical care time. Time includes review of lab data, radiology results, discussion with consultants, and monitoring for potential decompensation. Intervention performed as documented. Discharge Plan Discharge Clinical Impression: Chronic lung disease Patient Disposition: Home, Self-Care Instructions: Chronic Bronchitis (ED), Dyspnea (ED) Additional Instructions: Please follow-up with your primary care physician tomorrow. If you have any worsening or new symptoms, please return to the emergency room or call 911 Prescriptions: New levofloxacin 500 mg tablet 500 mg PO DAILY Qty: 6 0RF prednisone 50 mg tablet 50 mg PO DAILY Qty: 4 0RF No Action (DME) lancets [FreeStyle Lancets] 28 gauge misc See Rx Instructions .ROUTE .MEDSUPPLY Qty: 100 1RF Rx Instructions: Use to check blood sugar daily or if symptomatic hypo/hypergylcemia (DME) 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 meter [FreeStyle Lite Meter] Kit See Rx Instructions .ROUTE .MEDSUPPLY Qty: 1 0RF Rx Instructions: Use to check blood sugar daily or if symptomatic for hypo/hyperglycemia (DME) FreeStyle Lite Strips Strip See Rx Instructions .ROUTE .MEDSUPPLY Qty: 100 1RF Rx Instructions: Use to check blood sugar daily or if symptomatic hypo/hypergylcemia furosemide 20 mg tablet 20 mg PO DAILY Qty: 90 3RF aspirin 81 mg tablet,delayed release (DR/EC) 81 mg PO DAILY 90 Days Qty: 90 1RF theophylline 400 mg tablet extended release 24 hr 400 mg PO BID 90 Days Qty: 180 4RF albuterol sulfate [Ventolin HFA] 90 mcg/actuation HFA aerosol inhaler 2 puff inhalation Q6H PRN (Reason: for wheezing) Qty: 1 6RF Stiolto Respimat 2.5-2.5 mcg/actuation mist 2 puff INHALATION DAILY Qty: 4 6RF acetaminophen 650 mg tablet extended release 650 mg PO Q12H PRN (Reason: pain) 30 Days Qty: 60 0RF atorvastatin 20 mg tablet 20 mg PO BEDTIME 90 Days Qty: 90 0RF esomeprazole magnesium 20 mg capsule,delayed release(DR/EC) 20 mg PO DAILY Qty: 30 3RF glipizide 5 mg tablet 5 mg PO DAILY Qty: 90 1RF tizanidine 4 mg tablet 4 mg PO Q12H PRN (Reason: muscle spasm) 30 Days Qty: 60 0RF Rx Instructions: do not take concurrently with famotidine gabapentin 800 mg tablet 800 mg PO QID 30 Days Qty: 120 0RF calcium carbonate-vitamin D3 500 mg-10 mcg (400 unit) tablet 1 tab PO DAILY albuterol sulfate 2.5 mg /3 mL (0.083 %) solution for nebulization 2.5 mg inhalation Q4H PRN (Reason: Shortness Of Breath/Wheezing) ferrous sulfate 324 mg (65 mg iron) tablet,delayed release (DR/EC) 324 mg PO Q OTHER DAY Qty: 15 0RF (DME) mary anne Seec See Rx Instructions .Route Qty: 1 0RF Rx Instructions: As directed ibuprofen 800 mg tablet 800 mg PO BID PRN (Reason: Headache) Rx Instructions: please use sparingly due to diabetes losartan 50 mg tablet 50 mg PO DAILY topiramate 25 mg tablet 25 mg PO BID Qty: 60 0RF ipratropium-albuterol 0.5 mg-3 mg(2.5 mg base)/3 mL solution for nebulization 3 ml INHALATION QID PRN (Reason: Shortness Of Breath Or Wheezing) sertraline 100 mg tablet 150 mg PO DAILY 90 Days Qty: 135 0RF Print Language: Macanese
--- NOTE | 2024-09-11 01:41 | PC.NURSE ---
RT administered neb treatment, patient placed on NC at 3 LPM , maintaining O2 Sat 95-98%.
[2024-09-11 01:52] VITALS: PULSE 92; RESP 24; O2SAT 97
[2024-09-11] MEDS: Albuterol Sulfate 7.5 MG, Albuterol/Iprat 2.5/0.5MG 3 ML 3 ML INHALE (01:53)
[2024-09-11 01:58] LABS: MANUAL DIFF FLAG NO
[2024-09-11 01:59] LABS: Venous Blood Gas Refer to POC result
[2024-09-11 01:59] LABS: Basophils Absolute Auto 0.1 X10*3/uL (0.0-0.2); Basophils Percent Auto 0.4 % (0-2); Eosinophils Absolute Auto 0.2 X10*3/uL (0.0-0.4); Eosinophils Percent Auto 1.5 % (0-4); Hematocrit 35.7 % (37.0-47.0); Hemoglobin 10.7 g/dl (12.0-16.0); Imm Gran Abs Auto 0.04 X10*3/uL (0.00-0.03); Imm Gran Pct Auto 0.2 % (0.0-0.4); Lymphocytes Percent Auto 30.9 % (20-40); Mean Corpuscular Volume 76.8 fL (80.0-98.0); Mean Platelet Volume 8.9 fL (9.4-12.3); Monocytes Absolute Auto 1.3 X10*3/uL (0.1-1.2); Monocytes Percent Auto 7.9 % (2-11); Neutrophils Absolute Auto 9.6 x10*3/uL (2.0-8.3); Neutrophils Percent Auto 59.1 % (45-73); Platelet Count 364 X10*3/uL (160-400); Red Blood Count 4.65 X10*6/uL (4.20-5.50); Red Cell Distribution Width 18.2 % (11.0-16.0); White Blood Count 16.2 X10*3/uL (4.8-10.8)
[2024-09-11 02:03] LABS: VBG Base Excess 2.2 mmol/L; VBG HCO3 27 mmol/L (22-26); VBG pCO2 43 mmHg; VBG pO2 39 mmHg
[2024-09-11] MEDS: 0.9 % Sodium Chloride 1,500 ML 999 ML IVCONT (02:05)
[2024-09-11] MEDS: methylPREDNISolone Sod Succ 125 MG/2 ML VIAL IVPUSH (02:05)
[2024-09-11] MEDS: Magnesium Sulfate/H2O 2 GM/50 ML PIGGYBACK IV (02:05)
[2024-09-11 02:15] LABS: Lactic Acid 1.5 mmol/L (0.5-2.0)
[2024-09-11 02:19] LABS: B Type Natriuretic Peptide 59 pg/mL (<100)
[2024-09-11 02:20] LABS: Troponin-I High Sensitivity 11.9 ng/L (<3.5-17.0)
[2024-09-11 02:27] LABS: Alanine Aminotransferase 7 U/L (0-31); Albumin Level 3.7 g/dL (3.5-5.0); Alkaline Phosphatase 98 U/L (39-117); Anion Gap 14 (12-20); Aspartate Amino Transferase 13 U/L (5-31); Bilirubin Direct < 0.2 mg/dL (0.0-0.5); Bilirubin Total 0.1 mg/dL (0.0-1.0); Blood Urea Nitrogen 15 mg/dL (9-16); Calcium 8.9 mg/dL (8.4-10.2); Carbon Dioxide 25 mmol/L (22-29); Chloride 107 mmol/L (96-108); Creatinine Clr Calc Pharmacy 65.9; Estimated Glomerular Filt Rate > 60; Glucose Random 166 mg/dL (60-115); Potassium 3.9 mmol/L (3.3-5.1); Sodium 142 mmol/L (135-145); Total Protein 6.7 g/dL (6.5-8.0)
--- NOTE | 2024-09-11 02:33 | PC.NURSE ---
Delay in administration of Levaquin/D5W 500 mg IV d/t not available in ED pyxis. Florecita, clinical cryptologic supervisor notified.
[2024-09-11 02:44] LABS: Influenza A PCR NEGATIVE (Negative); Influenza B PCR NEGATIVE (Negative); Resp Syncy Virus RNA Qual PCR NEGATIVE (Negative); SARS COV2 PCR INHOUSE NEGATIVE (Negative)
--- NOTE | 2024-09-11 02:56 | PC.NURSE ---
Patient requested and given ice chips, tolerating well, no nausea/vomiting. RR 22, patient continues to maintain stable O2 Sat 94-97% on 3 LPM NC. Patient offers no complains at present, call ott in patient's reach.
[2024-09-11] MEDS: Albuterol Sulfate (0.083%) 2.5 MG/3 ML VIAL.NEB INHALE (03:35)
[2024-09-11] MEDS: levoFLOXacin/D5W 500 MG/100 ML PIGGYBACK 100 MG IV (03:35)
[2024-09-11 03:51] VITALS: BP 144/67; PULSE 106; RESP 15; TEMP 36.3; O2SAT 95
--- NOTE | 2024-09-11 04:44 | PC.NURSE ---
Patient changed over into a hospital attire in presence of security, belongings secured in [facility], shelf #4. phthalic acid purifier applied to patient's chest, HR 83, sinus rhythm. Labs drawn by product technician and sent to lab for processing. Patient alert, oriented to self, place, and familiar person. Patient complaints of 2/10 body aches at present. Patient currently resting in a stretcher, not in acute distress, call ott in patient's reach.
[2024-09-11 05:05] VITALS: BP 140/68; PULSE 108; RESP 22; TEMP 37.1; O2SAT 97
[2024-09-11 05:11] VITALS: BP 140/68; PULSE 108; RESP 22; TEMP 37.1; O2SAT 97
== END 2024-09-11 05:12 | disposition home or self-care (01) ==
PROVIDERS: Emergency Provider Emergency Medicine; PCP Nurse Practitioner Family
DX: R06.02 Shortness of breath (principal); J98.4 Other disorders of lung; R94.31 Abnormal electrocardiogram [ECG] [EKG]; J44.9 Chronic obstructive pulmonary disease, unspecified; Z99.81 Dependence on supplemental oxygen; F17.219 Nicotine dependence, cigarettes, with unspecified nicotine-induced disorders; F17.210 Nicotine dependence, cigarettes, uncomplicated; Z03.818 Encounter for observation for suspected exposure to other biological agents ruled out; Z79.899 Other long term (current) drug therapy
CPT/HCPCS: 0241U; 36415; 71045; 80048; 80076; 82803; 83605; 83880; 84484; 85025; 87040; 87147; 87205; 93005; 94640; 96361; 96374; 96375; 99284; 99285; J1956; J2919; J3475

== ENCOUNTER → 2024-09-11 01:33 | Outpatient (BNV) | payer OTHER, SELFPAY | PROVIDERS: Emergency Provider Emergency Medicine; PCP Nurse Practitioner Family; Visit Provider Internal Medicine | DX: I49.1 Atrial premature depolarization (principal) | CPT/HCPCS: 93010 ==

== ENCOUNTER → 2024-09-11 01:34 | Outpatient (BNV) | payer OTHER, SELFPAY | PROVIDERS: Emergency Provider Emergency Medicine; PCP Nurse Practitioner Family; Visit Provider Radiology Diagnostic Radiology | DX: R06.02 Shortness of breath (principal) | CPT/HCPCS: 71045 ==

== ENCOUNTER → 2024-09-14 06:50 | Outpatient (BNVA) | payer OTHER, SELFPAY | PROVIDERS: PCP Nurse Practitioner Family; Visit Provider Nurse Practitioner Family ==

== ENCOUNTER 2024-09-16 06:56 | Outpatient (AMB) | payer OTHER, SELFPAY ==
--- NOTE | 2024-09-16 08:03 | MHC.PC.OV ---
Intake Visit Reasons: F/U care Allergies doxycycline Allergy (Severe, Verified 09/11/24 01:36) Swelling varenicline [From CHANTIX] Allergy (Severe, Verified 09/11/24 01:36) ANAPHYLAXIS azithromycin Allergy (Intermediate, Verified 09/11/24 01:36) Rash barium sulfate Allergy (Intermediate, Verified 09/11/24 01:36) angioedema cetirizine Allergy (Mild, Verified 09/11/24 01:36) Rash famotidine Allergy (Mild, Verified 09/11/24 01:36) Rash linaclotide [Linzess] Allergy (Mild, Verified 09/11/24 01:36) Rash Medication List - Last Reconciled 09/16/24 by LORIE Lowe- acetaminophen ER 650 mg PO Q12H PRN 30 days albuterol sulfate 2.5 mg inhalation Q4H PRN albuterol sulfate 90 mcg/actuation (Ventolin HFA) 2 puffs inhalation Q6H PRN aspirin 81 mg PO DAILY 90 days atorvastatin 20 mg PO BEDTIME 90 days blood sugar diagnostic (FreeStyle Lite Strips) Use to check blood sugar daily or if symptomatic hypo/hypergylcemia 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 meter (FreeStyle Lite Meter kit) Use to check blood sugar daily or if symptomatic for hypo/hyperglycemia calcium carbonate-vitamin D3 500 mg-10 mcg (400 unit) 1 tab PO DAILY esomeprazole magnesium 40 mg PO DAILY ferrous sulfate 324 mg PO Q OTHER DAY furosemide 20 mg PO DAILY gabapentin 800 mg PO QID 30 days glipizide 5 mg PO DAILY ibuprofen 800 mg PO BID PRN ipratropium-albuterol 0.5 mg-3 mg(2.5 mg base)/3 mL 3 mL inhalation QID PRN lancets (FreeStyle Lancets) Use to check blood sugar daily or if symptomatic hypo/hypergylcemia levofloxacin 500 mg PO DAILY losartan 50 mg PO DAILY prednisone 50 mg PO DAILY prednisone 10 mg PO DAILY 14 days sertraline 150 mg (1.5 x 100 mg) PO DAILY 90 days theophylline ER 400 mg PO BID 90 days tiotropium-olodaterol 2.5-2.5 mcg/actuation (Stiolto Respimat) 2 puffs inhalation DAILY tizanidine 4 mg PO Q12H PRN 30 days topiramate 25 mg PO BID walker As directed Tobacco use date assessed: 08/06/23 Dental Screening Dental Screen Date: 08/06/23 HPI F/U care HPI Details Chief Complaint The patient presents for follow-up regarding a recent COPD exacerbation. History of Present Illness The patient is a 54-year-old female presenting with a follow-up for chronic obstructive pulmonary disease (COPD) management after a recent exacerbation. Despite the prescribed treatments of prednisone and Levofloxacin (Levaquin), the patient reports minimal improvement in her dyspnea subsequent to this course. She remains on continuous oxygen therapy at 3 liters per minute and admits to persistent smoking, as well as cocaine use, which complicates her COPD management. She denies any febrile symptoms, chills, or worsening of her respiratory distress since the last exacerbation. The patient also requires assistance with mobility due to the damage to her rolling walker during a recent move into her sister?s residence. Social History - Recent move to live with her sister. - Reports ongoing use of cocaine. - Continues to smoke tobacco. Health Maintenance Review of Systems - Respiratory: Denies increase of shortness of breath, denies fever or chills, denies chest pain. Physical Exam General: Cooperative, healthy appearing, comfortable, no acute distress and well developed Orientation: Patient oriented x3 Limitations: No limitations Head: Normal to inspection Ears: Hearing grossly normal bilaterally Nose: Normal external nose present Face and sinus: Normal facial exam Eyes: Appearance normal, both eyes and all related structures Neck: Normal visual inspection and Yes full ROM Respiratory: Normal respiratory effort and able to speak in complete sentences. Clear to auscultation bilaterally Cardiovascular: Regular rate and rhythm. Normal S1 and S2 GI: Normal to inspection. Soft to palpation and nontender Skin: No rashes or lesions noted Neuro: Patient oriented x3 Extremities: Normal to inspection Results Plan The plan for managing the patient's COPD includes a larger prednisone taper to control symptom exacerbation and close follow-up with the pulmonary team. A home pulse oximeter will be supplied for monitoring oxygen levels, and arrangements will be made for replacing her rolling walker. Continuous discussions regarding the cessation of smoking and cocaine use are necessary due to their impact on her COPD. Substantial effort will be dedicated to ensuring adherence to therapeutics and scheduled follow-ups. Discussion Notes I discussed with the patient the management plan for her COPD, emphasizing the importance of the prednisone taper to alleviate symptoms. We discussed the risks involved in continued smoking and cocaine use, including the potential for further COPD exacerbations. I explained the process of acquiring a home pulse oximeter for self-monitoring oxygen levels, which should aid in adjusting her supplemental oxygen requirements accurately. Further, I addressed the procurement of a replacement rolling walker due to its necessity for safe ambulation. I emphasized adherence to treatment and follow-up appointments with the pulmonary team, noting the significance of lifestyle modifications in her condition. Patient Instructions - Continue using oxygen therapy and monitor oxygen levels with a pulse oximeter. - Follow prescribed prednisone taper as directed. - Attend all scheduled follow-up appointments with the systems software specialist. - Seek assistance to replace the broken rolling walker for mobility support. - Avoid smoking and use of cocaine to prevent exacerbation of COPD symptoms. [facility] Medical History Obesity hypoventilation syndrome COPD (chronic obstructive pulmonary disease) Cocaine use disorder Chronic lung disease Hypoxic respiratory failure Nocturnal hypoxemia HENRY (obstructive sleep apnea) Diabetes mellitus COPD exacerbation Crack cocaine use Hyperkalemia Metabolic acidosis Leukocytosis Chest discomfort Chronic renal failure, stage 2 (mild) SOB (shortness of breath) Asthma Smoker Rotator cuff tendonitis GERD (gastroesophageal reflux disease) Chronic idiopathic constipation Bustos's esophagus Depression High triglycerides Gastroparesis Carpal tunnel syndrome of right wrist Nausea & vomiting Hernia Acute and chronic respiratory failure, unspecified whether with hypoxia or hypercapnia HTN (hypertension) Obesity (BMI 30-39.9) Knee pain, bilateral Surgical History History of cholecystectomy (~1988) History of carpal tunnel release Hx of tubal ligation History of pubovaginal sling (~2015) History of umbilical hernia repair (~2001) Hx of section History of open reduction and internal fixation (ORIF) procedure History of esophagogastroduodenoscopy (EGD) Family History Father Heart disease HENRY (obstructive sleep apnea) Family history of breast cancer Mother Asthma Emphysema, unspecified Bronchitis Smoker Alcoholism Bone marrow disease Maternal Grandmother Diabetes Social History Household Members: Family Household Members Other:: sister Housing: House Are you a primary certified social workers in health care to a significant other at home: No Do you presently have visiting nurse or other home services: Yes (vna) Unable to assess alcohol history related to: Unknown Alcohol intake: former Comment: Sleeping Patient Tobacco Use Status: Current everyday Tobacco user Tobacco use type: Cigarette Cigarette Packs Per Day: 1 Cigarettes Per Day: 20.0 Years Smoked: 48 e-Cigarette/Vaping Use: Currently Using Second Hand Smoke Exposure: No Substance Use Type: Crack/Cocaine Advance Directives Date on File: 12/19/23 service: No Current occupational status: disabled 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 Questionnaire Thrive Questionnaire Date Thrive assessed: 04/23/24 I am a: Patient What is your living situation today?: I have a steady place to live Within the past 12 months, did the food you bought not last and you didn't have the money to get more?: Often true Within the past 12 months, did you worry whether your food would run out before you got money to buy more?: Sometimes True Do you have trouble paying for medicines?: Yes Do you have trouble getting transportation to medical appointments?: Yes Do you have trouble paying your heating and electricity bill?: No Do you have trouble taking care of your child, family member or friend?: No Do you have trouble with day-to-day activities such as bathing, preparing meals, shopping, managing finances, etc.?: Yes Are you currently unemployed and looking for a job?: No Are you interested in more education?: No Please select the resources that you would like help with: Food Currently or been in a relationship where the following occur: I choose not to answer THRIVE Score: 3 BAHMAN-7 AMB Questionnaire BAHMAN-7 Date BAHMAN - 7 assessed: 04/23/24 Source: Developed by Drs. Dalton Nelson, Zoila Dowell, Parveen Erazo and colleagues, with an educational ge[place] from [email or web address]. Physical exam (Primary Care) Tobacco/Smoking Status: Tobacco use Status Tobacco use date assessed 08/06/23 04/23/24 16:04 Patient Tobacco Use Status Current everyday Tobacco 08/03/24 08:43 Tobacco use type Cigarette 07/17/24 16:29 e-Cigarette/Vaping Use Currently Using 06/26/24 09:46 Thrive Assessment: Date of Thrive Assessment Date Thrive assessed 04/23/24 09/09/24 09:44 Currently or been in a relationship where the following occur: I choose not to answer Telehealth Telehealth Telehealth Platform: [facility] [place] Location of provider rendering services: practice address Location of patient: address on file Telehealth method: video Patient verbally consented to treatment: Yes Patient verbally consented to billing insurance company: Yes Patient informed of any privacy concerns related to visit: Yes Minutes spent on Phone/Video with Pt.: 15 Coding Level of Care Code Tele Est Pt Level 3 (96269) Diagnoses Supplemental oxygen dependent Z99.81 Chronic obstructive pulmonary disease with acute lower respiratory infection J44.0 COPD type: COPD with acute lower respiratory infection Chronic lung disease J98.4 Assessment & Plan Assessment & Plan (1) Supplemental oxygen dependent: Code(s): Z99.81 - Dependence on supplemental oxygen Category: Medical (2) COPD (chronic obstructive pulmonary disease): Code(s): J44.9 - Chronic obstructive pulmonary disease, unspecified Category: Medical Qualifiers: COPD type: COPD with acute lower respiratory infection Qualified Code(s): J44.0 - Chronic obstructive pulmonary disease with (acute) lower respiratory infection (3) Chronic lung disease: Code(s): J98.4 - Other disorders of lung Category: Medical Plan . Medications: New prednisone 6 tabs for 2 days, 5tabs for 2 days, 4t for 2d, 3t for 2d, 2d for 2 d, 1 t for 2d, .5t for 2days 10 mg PO DAILY 14 days 43 tabs 0RF Changed From esomeprazole magnesium 20 mg PO DAILY 30 caps 3RF To esomeprazole magnesium 40 mg PO DAILY 30 caps 3RF
== END 2024-09-16 08:35 | disposition home or self-care (01) ==
LOC: HO.HMCC 06:57
PROVIDERS: PCP Nurse Practitioner Family; Visit Provider Nurse Practitioner Family
DX: J44.0 Chronic obstructive pulmonary disease with (acute) lower respiratory infection (principal); Z99.81 Dependence on supplemental oxygen; J98.4 Other disorders of lung

== ENCOUNTER → 2024-09-22 14:25 | Outpatient (BNVA) | payer OTHER, SELFPAY | PROVIDERS: PCP Nurse Practitioner Family ==

== ENCOUNTER 2024-09-30 04:30 | Inpatient (IN) | payer OTHER, SELFPAY ==
[2024-09-30] VITALS (17 sets, daily range): BP systolic 106–160; BP diastolic 54–86; PULSE 82–103; RESP 15–28; TEMP 36.2–36.8; O2SAT 90–98; BMI 32.3
--- NOTE | ~2024-09-30 | XR_ITS ---
CLINICAL HISTORY: sob 1 view chest x-ray Comparison:09/11/2024 Findings: No consolidation or effusion. No significant change in cardiomediastinal silhouette. No acute fracture. IMPRESSION: 1. No acute findings. This document has been electronically signed by: Liz Wolf MD on 09/30/2024 06:46:54
--- NOTE | 2024-09-30 05:46 | ED.SOB ---
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 O2, diabetes, obesity hypoventilation syndrome, obstructive sleep apnea, osteoarthritis, , hypertension, GERD, tobacco use and cocaine abuse presented to the ER with complaints of shortness of breath and cough with mucopurulent phlegm for last 10 days patient has been here multiple times for similar presentation last discharge was on 08/03/2024 with diagnose of influenza A patient is still smoking patient's uses nocturnal BiPAP used cocaine few days ago Related Data Home Medications ?Medication ?Instructions ?Recorded ?Confirmed calcium 500 mg (as 1 tab PO DAILY 06/26/24 09/16/24 carbonate)-vitamin D3 10 mcg (400 unit) tablet albuterol sulfate 2.5 mg/3 mL 2.5 mg inhalation Q4H PRN 07/13/24 09/16/24 (0.083 %) solution for nebulization Shortness Of Breath/Wheezing ibuprofen 800 mg tablet 800 mg PO BID PRN Headache 07/17/24 09/16/24 losartan 50 mg tablet 50 mg PO DAILY 07/17/24 09/16/24 ipratropium 0.5 mg-albuterol 3 mg 3 ml inhalation QID PRN Shortness 08/01/24 09/16/24 (2.5 mg base)/3 mL nebulization Of Breath Or Wheezing soln Previous Rx's ?Medication ?Instructions ?Recorded lancets 28 gauge (FreeStyle #100 ea 01/20/21 Lancets) 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 meter (FreeStyle #1 ea 03/01/22 Lite Meter kit) blood sugar diagnostic (FreeStyle #100 ea 09/16/22 Lite Strips) furosemide 20 mg tablet 20 mg PO DAILY #90 tabs 12/09/23 aspirin 81 mg tablet,delayed 81 mg PO DAILY 90 days #90 tabs 01/01/24 release theophylline 400 mg 400 mg PO BID 90 days #180 tabs 01/27/24 tablet,extended release 24 hr albuterol sulfate 90 mcg/actuation 2 puff inhalation Q6H PRN for 04/10/24 aerosol inhaler (Ventolin HFA) wheezing #1 ea tiotropium 2.5 mcg-olodaterol 2.5 2 puff inhalation DAILY #4 grams 04/28/24 mcg/actuation mist for inhalation (Stiolto Respimat) acetaminophen 650 mg 650 mg PO Q12H PRN pain 30 days 07/07/24 tablet,extended release #60 tabs ferrous sulfate 324 mg (65 mg 324 mg PO Q OTHER DAY #15 tabs 07/14/24 iron) tablet,delayed release walker #1 ea 07/14/24 topiramate 25 mg tablet 25 mg PO BID #60 tabs 07/18/24 atorvastatin 20 mg tablet 20 mg PO BEDTIME 90 days #90 tabs 07/21/24 sertraline 100 mg tablet 150 mg (1.5 x 100 mg) PO DAILY 90 07/22/24 days #135 tabs glipizide 5 mg tablet 5 mg PO DAILY #90 tabs 08/05/24 gabapentin 800 mg tablet 800 mg PO QID Pain 30 days #120 09/03/24 tabs levofloxacin 500 mg tablet 500 mg PO DAILY #6 tabs 09/11/24 prednisone 50 mg tablet 50 mg PO DAILY #4 tabs 09/11/24 Rollator walker #1 ea 09/16/24 cane #1 ea 09/16/24 esomeprazole magnesium 40 mg 40 mg PO DAILY #30 caps 09/16/24 capsule,delayed release prednisone 10 mg tablet 10 mg PO DAILY 14 days #43 tabs 09/16/24 pulse oximeter #1 ea 09/16/24 fexofenadine 180 mg tablet 180 mg PO DAILY #30 tabs 09/17/24 (Elisabeth Allergy) FreeStyle Jemima 3 Plus Sensor #2 ea 09/22/24 (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 sensor) FreeStyle Jemima 3 [place] #1 ea 09/22/24 (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 meter,continuous) glucose 4 gram chewable tablet 16 g (4 x 4 gram) PO Q15M PRN 09/22/24 hypoglycemia #100 tabs tizanidine 4 mg tablet 4 mg PO Q12H PRN muscle spasm 30 09/29/24 days #60 tabs amoxicillin 875 mg-potassium 1 tab PO BID #20 tabs 09/30/24 clavulanate 125 mg tablet prednisone 20 mg tablet 40 mg (2 x 20 mg) PO DAILY #10 tabs 09/30/24 Allergies Allergy/AdvReac Type Severity Reaction Status Date / Time doxycycline Allergy Severe Swelling Verified 09/30/24 04:56 varenicline [From CHANTIX] Allergy Severe ANAPHYLAXIS Verified 09/30/24 04:56 azithromycin Allergy Intermediate Rash Verified 09/30/24 04:56 barium sulfate Allergy Intermediate angioedema Verified 09/30/24 04:56 cetirizine Allergy Mild Rash Verified 09/30/24 04:56 famotidine Allergy Mild Rash Verified 09/30/24 04:56 linaclotide [Linzess] Allergy Mild Rash Verified 09/30/24 04:56 Review of Systems Review of Systems: Yes all other systems are reviewed and are negative [facility] Past Medical History Medical History Obesity hypoventilation syndrome COPD (chronic obstructive pulmonary disease) Cocaine use disorder Chronic lung disease Hypoxic respiratory failure Nocturnal hypoxemia HENRY (obstructive sleep apnea) Diabetes mellitus COPD exacerbation Crack cocaine use Hyperkalemia Metabolic acidosis Leukocytosis Chest discomfort Chronic renal failure, stage 2 (mild) SOB (shortness of breath) Asthma Smoker Rotator cuff tendonitis GERD (gastroesophageal reflux disease) Chronic idiopathic constipation Bustos's esophagus Depression High triglycerides Gastroparesis Carpal tunnel syndrome of right wrist Nausea & vomiting Hernia Acute and chronic respiratory failure, unspecified whether with hypoxia or hypercapnia HTN (hypertension) Obesity (BMI 30-39.9) Knee pain, bilateral Surgical History History of cholecystectomy (~1988) History of carpal tunnel release Hx of tubal ligation History of pubovaginal sling (~2015) History of umbilical hernia repair (~2001) Hx of section History of open reduction and internal fixation (ORIF) procedure History of esophagogastroduodenoscopy (EGD) Family History Family History Father Heart disease HENRY (obstructive sleep apnea) Family history of breast cancer Mother Asthma Emphysema, unspecified Bronchitis Smoker Alcoholism Bone marrow disease Maternal Grandmother Diabetes Social History Social History Household Members: Family Household Members Other:: sister Housing: House Are you a primary floor care technician to a significant other at home: No Do you presently have visiting nurse or other home services: Yes (vna) Unable to assess alcohol history related to: Unknown Alcohol intake: former Comment: Sleeping Patient Tobacco Use Status: Current everyday Tobacco user Tobacco use type: Cigarette Cigarette Packs Per Day: 1 Cigarettes Per Day: 20.0 Years Smoked: 48 e-Cigarette/Vaping Use: Currently Using Second Hand Smoke Exposure: No Substance Use Type: Crack/Cocaine Advance Directives: No Advance Directives Information Provided: Yes Advance Directives Date on File: 12/19/23 service: No Current occupational status: disabled 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 Physical Exam Vital Signs: Vital Signs: Last Vital Signs Temp 97.7 F 09/30/24 04:42 Pulse 102 H 09/30/24 06:34 Resp 28 H 09/30/24 06:34 BP 106/54 L 09/30/24 04:42 Pulse Ox 98 09/30/24 04:42 O2 Del Method Aerosol Mask 09/30/24 04:42 O2 Flow Rate 6 09/30/24 04:42 BMI result Body Mass Index 32.3 Appearance: Alert. Oriented X3. Moderate respiratory distress. Eyes: No pallor or icterus ENT: Pharynx normal. Oral Mucosa moist Neck: Normal inspection. Neck supple. CVS: Normal heart rate and rhythm. Pulses normal. Respiratory: Moderate respiratory distress. Equal air entry bilateral, bilateral wheezing Abdomen: Soft and nontender. Bowel sounds are present, no mass palpable, no CVA tenderness Skin: Skin warm and dry. Normal skin color. Normal skin turgor. Extremities: No lower extremity edema. No calf tenderness Neuro: Oriented X 3. No motor deficit. No sensory deficit.No cerebellar signs , cranial nerves II-XII intact Medications Administered Generic Name Dose Route Start Last Admin Trade Name Freq PRN Reason Stop Dose Admin Magnesium Sulfate 2 gm in 50 mls @ 150 mls/hr 09/30/24 06:30 09/30/24 06:43 Magnesium Sulfate/H2o IV 09/30/24 06:49 150 mls/hr ONCE ONE Administration Discontinued Medications Generic Name Dose Route Start Last Admin Trade Name Freq PRN Reason Stop Dose Admin Albuterol Sulfate 10 mg 09/30/24 06:26 09/30/24 06:33 Albuterol Sulfate (0.083%) 2.5 Mg/3 Ml Vial.Neb INHALE 09/30/24 06:27 10 mg ONCE ONE Administration Methylprednisolone Sodium Succinate 125 mg 09/30/24 06:30 09/30/24 06:43 Methylprednisolone Sod Succ 125 Mg/2 Ml Vial IVPUSH 09/30/24 06:31 125 mg ONCE ONE Administration Medical Decision Making Medical Decision Making MDM Narrative: 54-year-old female with past medical history of COPD on 3 L nasal cannula home O2, diabetes, obesity hypoventilation syndrome, obstructive sleep apnea, osteoarthritis, asthma, hypertension, GERD, tobacco use and cocaine abuse presented to the ER with complaints of shortness of breath and cough with mucopurulent phlegm for last 10 days on occasion patient has been wheezing a lot was given continues nebulizing treatment steroids and magnesium chest x-ray showed bilateral interstitial prominence bilaterally in lower lobe WBC count slightly elevated normal lactic acid level will give antibiotics for bronchitis 7 am Patient is signed out to Dr. De Leon pending re-evaluation and the labs possibly patient may be discharged on Augmentin patient is placed on BiPAP for short time as been hypoxic and having difficulty in breathing Differential Diagnosis Differential Diagnoses: The differential diagnosis associated with the presentation includes COPD/asthma/bronchitis/pneumonia Lab Data [facility] Lab Attestation statement: I reviewed the patient's lab results. 09/30/24 05:59 09/30/24 06:00 Labs: Lab Results 09/30/24 09/30/24 09/30/24 Range/Units 05:59 06:00 06:04 WBC 14.2 H (4.8-10.8) X10*3/uL RBC 5.31 (4.20-5.50) X10*6/uL Hgb 12.0 (12.0-16.0) g/dl Hct 41.3 (37.0-47.0) % MCV 77.8 L (80.0-98.0) fL MCH 22.6 L (27.0-33.0) pg MCHC 29.1 L (31.0-35.0) g/dl RDW 19.8 H (11.0-16.0) % Plt Count 415 H (160-400) X10*3/uL MPV 8.7 L (9.4-12.3) fL Immature Gran % (Auto) 0.3 (0.0-0.4) % Neut % (Auto) 61.8 (45-73) % Lymph % (Auto) 27.0 (20-40) % [place] % (Auto) 8.7 (2-11) % Eos % (Auto) 1.8 (0-4) % Baso % (Auto) 0.4 (0-2) % Lymph # (Auto) 3.8 (1.2-4.9) X10*3/uL [place] # (Auto) 1.2 (0.1-1.2) X10*3/uL Eos # (Auto) 0.3 (0.0-0.4) X10*3/uL Baso # (Auto) 0.1 (0.0-0.2) X10*3/uL Abs Immat Gran (auto) 0.04 H (0.00-0.03) X10*3/uL Absolute Neuts (auto) 8.8 H (2.0-8.3) x10*3/uL Absolute Nucleated RBC 0.000 (0.0-0.012) X10*3/uL Nucleated RBC % (auto) 0.0 (0.0-0.2) /100WBC VBG pH 7.33 (7.32-7.43) VBG pCO2 67 mmHg VBG pO2 40 mmHg VBG HCO3 35 H (22-26) mmol/L VBG O2 Saturation 62.0 % VBG Base Excess 7.3 mmol/L Sodium 141 (135-145) mmol/L Potassium 3.6 (3.3-5.1) mmol/L Chloride 101 (96-108) mmol/L Carbon Dioxide 30 H (22-29) mmol/L Anion Gap 14 (12-20) BUN 17 H (9-16) mg/dL Creatinine 0.80 (0.5-1.4) mg/dL Estim Creat Clear Calc 68.1 Estimated GFR > 60 Random Glucose 124 H (60-115) mg/dL Lactic Acid 0.9 (0.5-2.0) mmol/L Calcium 9.1 (8.4-10.2) mg/dL Magnesium 1.8 (1.6-2.6) mg/dL Total Bilirubin 0.3 (0.0-1.0) mg/dL AST 15 (5-31) U/L ALT 7 (0-31) U/L Alkaline Phosphatase 73 (39-117) U/L Total Protein 6.7 (6.5-8.0) g/dL Albumin 4.0 (3.5-5.0) g/dL Discharge Plan Discharge Clinical Impression: Asthma with exacerbation, Acute exacerbation of chronic obstructive airways disease Patient Disposition: Still a Patient Instructions: Asthma (ED), COPD (Chronic Obstructive Pulmonary Disease) (ED) Additional Instructions: Stop smoking Continue to use your nebulizer treatment Prednisone antibiotic as prescribed Follow with your PCP Report to ER if not better Prescriptions: New prednisone 20 mg tablet 40 mg PO DAILY Qty: 10 0RF amoxicillin-pot clavulanate 875-125 mg tablet 1 tab PO BID Qty: 20 0RF No Action (DME) lancets [FreeStyle Lancets] 28 gauge misc See Rx Instructions .ROUTE .MEDSUPPLY Qty: 100 1RF Rx Instructions: Use to check blood sugar daily or if symptomatic hypo/hypergylcemia (DME) 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 meter [FreeStyle Lite Meter] Kit See Rx Instructions .ROUTE .MEDSUPPLY Qty: 1 0RF Rx Instructions: Use to check blood sugar daily or if symptomatic for hypo/hyperglycemia (DME) FreeStyle Lite Strips Strip See Rx Instructions .ROUTE .MEDSUPPLY Qty: 100 1RF Rx Instructions: Use to check blood sugar daily or if symptomatic hypo/hypergylcemia furosemide 20 mg tablet 20 mg PO DAILY Qty: 90 3RF aspirin 81 mg tablet,delayed release (DR/EC) 81 mg PO DAILY 90 Days Qty: 90 1RF theophylline 400 mg tablet extended release 24 hr 400 mg PO BID 90 Days Qty: 180 4RF albuterol sulfate [Ventolin HFA] 90 mcg/actuation HFA aerosol inhaler 2 puff inhalation Q6H PRN (Reason: for wheezing) Qty: 1 6RF Stiolto Respimat 2.5-2.5 mcg/actuation mist 2 puff INHALATION DAILY Qty: 4 6RF acetaminophen 650 mg tablet extended release 650 mg PO Q12H PRN (Reason: pain) 30 Days Qty: 60 0RF atorvastatin 20 mg tablet 20 mg PO BEDTIME 90 Days Qty: 90 0RF glipizide 5 mg tablet 5 mg PO DAILY Qty: 90 1RF gabapentin 800 mg tablet 800 mg PO QID 30 Days Qty: 120 0RF (DME) cane Device See Rx Instructions .Route Qty: 1 0RF Rx Instructions: Standard cane (DME) Rollator walker See Rx Instructions .Route .MEDSUPPLY Qty: 1 0RF Rx Instructions: As directed (DME) pulse oximeter See Rx Instructions .Route .MEDSUPPLY Qty: 1 0RF Rx Instructions: As directed fexofenadine [Elisabeth Allergy] 180 mg tablet 180 mg PO DAILY Qty: 30 3RF glucose 4 gram tablet,chewable 16 g PO Q15M MDD 8 tabs PRN (Reason: hypoglycemia) Qty: 100 1RF Rx Instructions: until symptoms of low blood sugar are controlled (DME) FreeStyle Jemima 3 Plus Sensor Device See Rx Instructions .Route Qty: 2 5RF Rx Instructions: To monitor blood sugars 4 times per day. Change sensor every 15 days (DME) FreeStyle Jemima 3 [place] Misc See Rx Instructions .Route Qty: 1 0RF Rx Instructions: To monitor blood sugar 4 times per day tizanidine 4 mg tablet 4 mg PO Q12H PRN (Reason: muscle spasm) 30 Days Qty: 60 0RF Rx Instructions: do not take concurrently with famotidine calcium carbonate-vitamin D3 500 mg-10 mcg (400 unit) tablet 1 tab PO DAILY albuterol sulfate 2.5 mg /3 mL (0.083 %) solution for nebulization 2.5 mg inhalation Q4H PRN (Reason: Shortness Of Breath/Wheezing) ferrous sulfate 324 mg (65 mg iron) tablet,delayed release (DR/EC) 324 mg PO Q OTHER DAY Qty: 15 0RF (DME) walker Misc See Rx Instructions .Route Qty: 1 0RF Rx Instructions: As directed levofloxacin 500 mg tablet 500 mg PO DAILY Qty: 6 0RF prednisone 50 mg tablet 50 mg PO DAILY Qty: 4 0RF ibuprofen 800 mg tablet 800 mg PO BID PRN (Reason: Headache) Rx Instructions: please use sparingly due to diabetes losartan 50 mg tablet 50 mg PO DAILY topiramate 25 mg tablet 25 mg PO BID Qty: 60 0RF ipratropium-albuterol 0.5 mg-3 mg(2.5 mg base)/3 mL solution for nebulization 3 ml INHALATION QID PRN (Reason: Shortness Of Breath Or Wheezing) sertraline 100 mg tablet 150 mg PO DAILY 90 Days Qty: 135 0RF esomeprazole magnesium 40 mg capsule,delayed release(DR/EC) 40 mg PO DAILY Qty: 30 3RF prednisone 10 mg tablet 10 mg PO DAILY 14 Days Qty: 43 0RF Rx Instructions: 6 tabs for 2 days, 5tabs for 2 days, 4t for 2d, 3t for 2d, 2d for 2 d, 1 t for 2d, .5t for 2days Print Language: Kiswahili
[2024-09-30 06:07] LABS: Venous Blood Gas Refer to POC result
[2024-09-30 06:07] LABS: Basophils Absolute Auto 0.1 X10*3/uL (0.0-0.2); Basophils Percent Auto 0.4 % (0-2); Eosinophils Absolute Auto 0.3 X10*3/uL (0.0-0.4); Eosinophils Percent Auto 1.8 % (0-4); Hematocrit 41.3 % (37.0-47.0); Imm Gran Abs Auto 0.04 X10*3/uL (0.00-0.03); Imm Gran Pct Auto 0.3 % (0.0-0.4); Lymphocytes Absolute Auto 3.8 X10*3/uL (1.2-4.9); MANUAL DIFF FLAG NO; Mean Corpuscular HGB Conc 29.1 g/dl (31.0-35.0); Mean Corpuscular Hemoglobin 22.6 pg (27.0-33.0); Mean Corpuscular Volume 77.8 fL (80.0-98.0); Mean Platelet Volume 8.7 fL (9.4-12.3); Monocytes Absolute Auto 1.2 X10*3/uL (0.1-1.2); Monocytes Percent Auto 8.7 % (2-11); Neutrophils Absolute Auto 8.8 x10*3/uL (2.0-8.3); Neutrophils Percent Auto 61.8 % (45-73); Platelet Count 415 X10*3/uL (160-400); Red Blood Count 5.31 X10*6/uL (4.20-5.50); Red Cell Distribution Width 19.8 % (11.0-16.0); White Blood Count 14.2 X10*3/uL (4.8-10.8)
[2024-09-30 06:09] LABS: VBG Base Excess 7.3 mmol/L; VBG HCO3 35 mmol/L (22-26); VBG pCO2 67 mmHg; VBG pH 7.33 (7.32-7.43); VBG pO2 40 mmHg
[2024-09-30 06:21] LABS: Lactic Acid 0.9 mmol/L (0.5-2.0)
[2024-09-30 06:29] LABS: Alanine Aminotransferase 7 U/L (0-31); Alkaline Phosphatase 73 U/L (39-117); Anion Gap 14 (12-20); Aspartate Amino Transferase 15 U/L (5-31); Bilirubin Total 0.3 mg/dL (0.0-1.0); Blood Urea Nitrogen 17 mg/dL (9-16); Calcium 9.1 mg/dL (8.4-10.2); Carbon Dioxide 30 mmol/L (22-29); Chloride 101 mmol/L (96-108); Creatinine Clr Calc Pharmacy 68.1; Estimated Glomerular Filt Rate > 60; Glucose Random 124 mg/dL (60-115); Magnesium 1.8 mg/dL (1.6-2.6); Potassium 3.6 mmol/L (3.3-5.1); Sodium 141 mmol/L (135-145); Total Protein 6.7 g/dL (6.5-8.0)
[2024-09-30] MEDS: Albuterol Sulfate (0.083%) 2.5 MG/3 ML VIAL.NEB 10 MG INHALE (06:33)
[2024-09-30] MEDS: Magnesium Sulfate/H2O 2 GM/50 ML PIGGYBACK IV (06:43)
[2024-09-30] MEDS: methylPREDNISolone Sod Succ 125 MG/2 ML VIAL IVPUSH (06:43)
[2024-09-30 06:48] LABS: Influenza A PCR NEGATIVE (Negative); Influenza B PCR NEGATIVE (Negative); Resp Syncy Virus RNA Qual PCR NEGATIVE (Negative); SARS COV2 PCR INHOUSE NEGATIVE (Negative)
--- NOTE | 2024-09-30 06:54 | ECG_ITS ---
Test Reason : dyspnea Blood Pressure : */* mmHG Vent. Rate : 97 BPM Atrial Rate : 97 BPM P-R Int : 128 ms QRS Dur : 92 ms QT Int : 364 ms P-R-T Axes : 50 176 41 degrees QTcB Int : 462 ms Sinus rhythm with marked sinus arrhythmia Possible Right ventricular hypertrophy Inferior infarct (cited on or before 11-Sep-2024) Abnormal ECG When compared with ECG of 11-Sep-2024 01:39, Premature atrial complexes are no longer Present Referred By: Ok Griffith Electronically Signed By: DAVIS WALKER
[2024-09-30] MEDS: cefTRIAXone sodium 1 GM VIAL IVPUSH (07:09)
[2024-09-30 08:33] LABS: ABG Base Excess 6.3 mmol/L; ABG HCO3 33 mmol/L (22-26); ABG pCO2 56 mmHg (32-45); ABG pH 7.37 (7.35-7.45); ABG pO2 72 mmHg (83-108)
--- NOTE | 2024-09-30 09:24 | PC.NURSE ---
Pt taken off BIPAP by RT, placed on 3L NC (her baseline) as trial
--- NOTE | 2024-09-30 09:38 | PC.NURSE ---
Pt remains very lethargic, does wake up when spoken to. Pt is currently on 3L O2 NC sating between 88-94%
--- NOTE | 2024-09-30 10:13 | P.HPHOSP_ITS ---
History of Present Illness Date of Service: 09/30/24 Chief Complaint: cough and shortness of breath 4-year-old female with a past medical history significant for chronic obstructive pulmonary disease and chronic respiratory failure with hypoxia and hypercapnia on BiPAP at night who presents to the emergency room with a several day history of progressive shortness of breath and productive cough. She reports subjective fevers but denies any sick contacts. She reports that she attempted to use her nebulizer at home which did not help much and hence she called the paramedics. On arrival the patient was noted to have increased work of breathing and was treated with an hour long nebulized bronchodilator. She was given IV magnesium, IV Solu-Medrol and a dose of empiric IV ceftriaxone. The patient continued to exhibit increased work of breathing with respiratory rates in the upper 20s. A venous blood gas was checked which showed CO2 retention. She was placed on BiPAP therapy for increased work of breathing for several hours. Her BiPAP has been weaned and now she is tolerating 3 L nasal cannula. A repeat arterial blood gas shows improved CO2. The patient is seen and examined in the emergency room around 09:45. She reports improvement in her breathing but does appear with respiratory distress with conversation. She reports active tobacco smoking - 1/2 pack per day currently and active crack use -- last used 3 days prior to arrival. Denies EtOH or other illicit substances. Review of Systems 2 Review of Systems: Negative except HPI/interval history. [facility] Medical History Obesity hypoventilation syndrome COPD (chronic obstructive pulmonary disease) Cocaine use disorder Chronic lung disease Hypoxic respiratory failure Nocturnal hypoxemia HENRY (obstructive sleep apnea) Diabetes mellitus COPD exacerbation Crack cocaine use Hyperkalemia Metabolic acidosis Leukocytosis Chest discomfort Chronic renal failure, stage 2 (mild) SOB (shortness of breath) Asthma Smoker Rotator cuff tendonitis GERD (gastroesophageal reflux disease) Chronic idiopathic constipation Bustos's esophagus Depression High triglycerides Gastroparesis Carpal tunnel syndrome of right wrist Nausea & vomiting Hernia Acute and chronic respiratory failure, unspecified whether with hypoxia or hypercapnia HTN (hypertension) Obesity (BMI 30-39.9) Knee pain, bilateral Family History Father Heart disease HENRY (obstructive sleep apnea) Family history of breast cancer Mother Asthma Emphysema, unspecified Bronchitis Smoker Alcoholism Bone marrow disease Maternal Grandmother Diabetes Surgical History History of cholecystectomy (~1988) History of carpal tunnel release Hx of tubal ligation History of pubovaginal sling (~2015) History of umbilical hernia repair (~2001) Hx of section History of open reduction and internal fixation (ORIF) procedure History of esophagogastroduodenoscopy (EGD) Social History Household Members: Family Household Members Other:: sister Housing: House Are you a primary career and technology education teacher to a significant other at home: No Do you presently have visiting nurse or other home services: Yes (vna) Unable to assess alcohol history related to: Unknown Alcohol intake: former Comment: Sleeping Patient Tobacco Use Status: Current everyday Tobacco user Tobacco use type: Cigarette Cigarette Packs Per Day: 1 Cigarettes Per Day: 20.0 Years Smoked: 48 e-Cigarette/Vaping Use: Currently Using Second Hand Smoke Exposure: No Substance Use Type: Crack/Cocaine Advance Directives: No Advance Directives Information Provided: Yes Advance Directives Date on File: 12/19/23 Patient : No service: No Current occupational status: disabled 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 Meds Allergies Allergy/AdvReac Type Severity Reaction Status Date / Time doxycycline Allergy Severe Swelling Verified 09/30/24 04:56 varenicline [From CHANTIX] Allergy Severe ANAPHYLAXIS Verified 09/30/24 04:56 azithromycin Allergy Intermediate Rash Verified 09/30/24 04:56 barium sulfate Allergy Intermediate angioedema Verified 09/30/24 04:56 cetirizine Allergy Mild Rash Verified 09/30/24 04:56 famotidine Allergy Mild Rash Verified 09/30/24 04:56 linaclotide [Linzess] Allergy Mild Rash Verified 09/30/24 04:56 Home Medications ?Medication ?Instructions ?Recorded ?Confirmed ?Last Taken ?Type calcium 500 mg (as 1 tab PO DAILY 06/26/24 09/16/24 07/16/24 History carbonate)-vitamin D3 10 mcg (400 unit) tablet albuterol sulfate 2.5 mg/3 mL 2.5 mg inhalation Q4H PRN 07/13/24 09/16/24 Unknown History (0.083 %) solution for nebulization Shortness Of Breath/Wheezing ibuprofen 800 mg tablet 800 mg PO BID PRN Headache 07/17/24 09/16/24 Unknown History losartan 50 mg tablet 50 mg PO DAILY 07/17/24 09/16/24 07/16/24 History ipratropium 0.5 mg-albuterol 3 mg 3 ml inhalation QID PRN Shortness 08/01/24 09/16/24 Unknown History (2.5 mg base)/3 mL nebulization Of Breath Or Wheezing soln Physical Exam 2 Vital Signs and Narrative: Vital Signs: Last Vital Signs Temp 98.2 F 09/30/24 07:54 Pulse 100 09/30/24 09:38 Resp 16 09/30/24 09:38 BP 123/81 09/30/24 07:54 Pulse Ox 93 09/30/24 09:38 O2 Del Method Nasal Cannula 09/30/24 09:38 O2 Flow Rate 3 09/30/24 09:38 BMI result Body Mass Index 32.3 Const: Other: Constitutional - Awake and Alert, comfortable when not speaking; increased wob with accessory muscle use after conversation Eyes - PERRLA, EOMI Cardiovascular - S1S2, RRR, No edema Respiratory - poor air entry globally Gastrointestinal - NT / ND; +BS; No rebound or guarding - No CVA tenderness Extremities - no calf tenderness bilaterally, no swelling Musculoskeletal - Normal inspection, normal ROM Skin - Warm/Dry Neurological - Alert & oriented x3, No focal deficit Psychological - Appropriate affect Results Labs 09/30/24 05:59 09/30/24 06:00 Labs: Laboratory Results - last 24 hr 09/30/24 09/30/24 09/30/24 05:59 06:00 06:04 MCV 77.8 L MCH 22.6 L MCHC 29.1 L RDW 19.8 H Plt Count 415 H MPV 8.7 L Immature Gran % (Auto) 0.3 Neut % (Auto) 61.8 Lymph % (Auto) 27.0 [place] % (Auto) 8.7 Eos % (Auto) 1.8 Baso % (Auto) 0.4 Lymph # (Auto) 3.8 [place] # (Auto) 1.2 Eos # (Auto) 0.3 Baso # (Auto) 0.1 Abs Immat Gran (auto) 0.04 H Absolute Neuts (auto) 8.8 H Absolute Nucleated RBC 0.000 Nucleated RBC % (auto) 0.0 O2 Saturation ABG pH at Pt Temp ABG pCO2 at Pt Temp ABG pO2 at Pt Temp ABG HCO3 ABG Base Excess (Actual) VBG pH 7.33 VBG pCO2 67 VBG pO2 40 VBG HCO3 35 H VBG O2 Saturation 62.0 VBG Base Excess 7.3 Anion Gap 14 Estim Creat Clear Calc 68.1 Estimated GFR > 60 Random Glucose 124 H Lactic Acid 0.9 Calcium 9.1 Magnesium 1.8 Total Bilirubin 0.3 AST 15 ALT 7 Alkaline Phosphatase 73 Total Protein 6.7 Albumin 4.0 Influenza Type A (PCR) NEGATIVE Influenza Type B (PCR) NEGATIVE RSV RNA Qual (PCR) NEGATIVE SARS-CoV-2 RNA (RT-PCR) NEGATIVE 09/30/24 08:30 MCV MCH MCHC RDW Plt Count MPV Immature Gran % (Auto) Neut % (Auto) Lymph % (Auto) [place] % (Auto) Eos % (Auto) Baso % (Auto) Lymph # (Auto) [place] # (Auto) Eos # (Auto) Baso # (Auto) Abs Immat Gran (auto) Absolute Neuts (auto) Absolute Nucleated RBC Nucleated RBC % (auto) O2 Saturation 94.0 ABG pH at Pt Temp 7.37 ABG pCO2 at Pt Temp 56 H ABG pO2 at Pt Temp 72 L ABG HCO3 33 H ABG Base Excess (Actual) 6.3 VBG pH VBG pCO2 VBG pO2 VBG HCO3 VBG O2 Saturation VBG Base Excess Anion Gap Estim Creat Clear Calc Estimated GFR Random Glucose Lactic Acid Calcium Magnesium Total Bilirubin AST ALT Alkaline Phosphatase Total Protein Albumin Influenza Type A (PCR) Influenza Type B (PCR) RSV RNA Qual (PCR) SARS-CoV-2 RNA (RT-PCR) Assessment and Plan (1) Acute exacerbation of chronic obstructive airways disease: Status: Acute Plan 54 yo female with COPD/asthma overlap, chronic hypoxic and hypercapnic respiratory failure, HENRY/ohs on nocturnal BiPAP, hypertension, [id number] diabetes, GERD, cocaine use disorder who presents with a several day history of progressive shortness of breath and productive cough. Her workup in the emergency room is consistent with acute on chronic hypercapnic respiratory failure due to acute exacerbation of COPD. 1. Acute on chronic hypercapnenic respiratory failure 1a. Chronic respiratory failure with hypoxia 1b. HENRY/OHS baseline PCO2 around 50-55; presented with pCO2 of 67; improved to 56 after BIPAP in the ED on ABG continue baseline O2 with CO2 retainer protocol nocturnal BIPAP Flu/COVID/RSV neg 2. Acute COPD/Asthma overlap exacerbation still with poor air entry and conversational dyspnea IV solu-medrol scheduled + PRN nebulized bronchodilators empiric rocephin (allergy to azithromycin and doxy) 3. DM hold orals use sliding scale + POC 4. Mood continue baseline meds 5. Tobacco use disorder continues to actively smoke education on continued use and its impact has been provided and cessation has been encouraged Full Code DVT pptx - Lovenox Pt with acute on chronic hypercapenic resp failure requiring rescue bipap in the ED and post treatment still with conversational dyspnea, therefore expected to require at least 48 hours of on going treatment (IV steroids, IV antibiotics, nebulized bronchodilators). Hence, will be admitted as inpatient. Med rec pending -- will continue home meds as appropriate. Quality Stroke Does the patient have a stroke diagnosis?: No VTE Prior VTE?: No VTE Risk Level:: Medical - moderate - high VTE Device Contraindication: N/A - Device Ordered VTE Drug Contraindication: N/A - Med Ordered
[2024-09-30] MEDS: Enoxaparin Sodium 40 MG/0.4 ML SYRINGE SUBCUT (10:32)
--- NOTE | 2024-09-30 10:36 | PC.NURSE ---
Pt alert and oriented, intermittently sleeping. Sating well on her 3L O2 NC. Able to eat per provider, eating and drinking at this time.
[2024-09-30 10:46] LABS: ABG Refer to POC result
--- NOTE | 2024-09-30 11:04 | PC.NURSE ---
Report received from SANDRA Roberson. Taken over care at this time.
[2024-09-30] MEDS: Albuterol/Iprat 2.5/0.5MG 3 ML AMPUL.NEB INHALE ×2 (11:21→19:33)
--- NOTE | 2024-09-30 11:29 | PHA.MEDREC ---
Addendum entered by Radha Parmar RPh 09/30/24 11:44: Med rec was reviewed by [facility]. Original Note: Pharmacy Consult ? Medication Reconciliation Pharmacy has completed the medication reconciliation. Spoke to patient to confirm med list. Patient states she is no longer taking Ferrous sulfate 324 mg, and Prednisone 10 mg. Patient states she last took her medications 2 days ago
[2024-09-30 11:44] LABS: Glucose, Whole Blood 352 mg/dL (60-115)
--- NOTE | 2024-09-30 12:00 | PC.NURSE ---
Pt. informed that she needs to provide ua sample. Pt. still unable to provide at this time.
[2024-09-30] MEDS: Aspirin Enteric Coated 81 MG TABLET.DR PO (12:15)
[2024-09-30] MEDS: Omeprazole 20 MG CAPSULE.DR PO (12:15)
[2024-09-30] MEDS: Insulin Lispro 100 UNIT/ML 3 ML VIAL SUBCUT ×3 (12:15→21:57)
[2024-09-30] MEDS: Theophylline Anhydrous ER 400 MG TAB.ER.24H PO ×2 (12:18→22:01)
[2024-09-30] MEDS: methylPREDNISolone Sod Succ 40 MG/ML VIAL IVPUSH ×2 (15:27→21:58)
--- NOTE | 2024-09-30 15:44 | PC.NURSE ---
Pt. educated and instructed only water and no snacks at this time d/t increased blood glucose level. Pt. states understanding and is agreeable. Insulin given prior to lunch.
[2024-09-30 17:54] LABS: Glucose, Whole Blood 202 mg/dL (60-115)
[2024-09-30] MEDS: 0.9 % Sodium Chloride Flush 3 ML SYRINGE IVFLUSH ×2 (18:13→23:50)
[2024-09-30 18:52] LABS: Amphetamine Screen Urine Not Detected (Not Detect); Barbiturates, Urine Not Detected (Not Detect); Benzodiazepines Screen Urine Not Detected (Not Detect); Buprenorphine Scr Not Detected (Not Detect); Cannabinoid Screen Urine Not Detected (Not Detect); Cocaine Screen Urine POSITIVE (Not Detect); Fentanyl, urine Not Detected (Not Detect); Methadone Screen, Urine Not Detected (Not Detect); Opiate Screen Urine Not Detected (Not Detect); Oxycodone Screen Urine Not Detected (Not Detect); Phencyclidine Screen Urine Not Detected (Not Detect)
[2024-09-30 21:12] LABS: Glucose, Whole Blood 180 mg/dL (60-115)
[2024-09-30] MEDS: Topiramate 25 MG TABLET PO (21:58)
[2024-09-30] MEDS: Atorvastatin Calcium 20 MG TABLET PO (21:58)
[2024-10-01 00:33] VITALS: PULSE 91; RESP 18; O2SAT 93
[2024-10-01 04:00] VITALS: BP 151/76; PULSE 98; RESP 16; TEMP 36.6; O2SAT 95
[2024-10-01] MEDS: Omeprazole 20 MG CAPSULE.DR PO (05:44)
[2024-10-01] MEDS: methylPREDNISolone Sod Succ 40 MG/ML VIAL IVPUSH (05:44)
[2024-10-01 06:17] VITALS: PULSE 98; RESP 16; O2SAT 92
[2024-10-01] MEDS: Albuterol Sulfate (0.083%) 2.5 MG/3 ML VIAL.NEB INHALE (06:17)
[2024-10-01 07:10] LABS: Glucose, Whole Blood 141 mg/dL (60-115)
[2024-10-01 07:24] VITALS: BP 164/74; PULSE 83; RESP 20; TEMP 36.4; O2SAT 94
[2024-10-01] MEDS: Theophylline Anhydrous ER 400 MG TAB.ER.24H PO (08:05)
[2024-10-01] MEDS: Losartan Potassium 50 MG TABLET PO (08:05)
[2024-10-01] MEDS: Topiramate 25 MG TABLET PO (08:05)
[2024-10-01] MEDS: Furosemide 20 MG TABLET PO (08:05)
[2024-10-01] MEDS: Sertraline HCL 50 MG TABLET 150 MG PO (08:05)
[2024-10-01] MEDS: Aspirin Enteric Coated 81 MG TABLET.DR PO (08:05)
[2024-10-01] MEDS: Calcium + Vitamin D 250 MG TABLET 500 MG PO (08:05)
--- NOTE | 2024-10-01 09:16 | MHC.CM.PN ---
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 HCP on file and confirmed: Jaja, PCP confirmed: Joe Hale. Pt informed CM that MD has told her she is going home today, she said she has someone coming to pick her up.
--- NOTE | 2024-10-01 09:38 | P.DS_ITS ---
DS: Providers Provider Date of Service: 10/01/24 Date of admission: 09/30/24 10:09 Date of discharge: 10/01/24 Primary care physician: DOTTY Lazcano DS: Diagnosis Discharge Diagnosis (1) COPD (chronic obstructive pulmonary disease): Status: Acute DS: Summary Hospital Course Hospital Course: HPI From admission H&P: 54-year-old female with a past medical history significant for chronic obstructive pulmonary disease and chronic respiratory failure with hypoxia and hypercapnia on BiPAP at night who presents to the emergency room with a several day history of progressive shortness of breath and productive cough. She reports subjective fevers but denies any sick contacts. She reports that she attempted to use her nebulizer at home which did not help much and hence she called the paramedics. On arrival the patient was noted to have increased work of breathing and was treated with an hour long nebulized bronchodilator. She was given IV magnesium, IV Solu-Medrol and a dose of empiric IV ceftriaxone. The patient continued to exhibit increased work of breathing with respiratory rates in the upper 20s. A venous blood gas was checked which showed CO2 retention. She was placed on BiPAP therapy for increased work of breathing for several hours. Her BiPAP has been weaned and now she is tolerating 3 L nasal cannula. A repeat arterial blood gas shows improved CO2. The patient is seen and examined in the emergency room around 09:45. She reports improvement in her breathing but does appear with respiratory distress with conversation. She reports active tobacco smoking - 1/2 pack per day currently and active crack use -- last used 3 days prior to arrival. Denies EtOH or other illicit substances. Hospital Course: Patient required BiPAP therapy in the emergency room and subsequently was transitioned to nasal cannula. She was initiated on IV Solu-Medrol, scheduled and p.r.n. bronchodilators and empiric antibiotics. The patient improved faster than expected and is requesting discharge home. He is on her baseline nasal cannula this morning and has no respiratory distress. She will be transitioned to oral prednisone and cefuroxime for 5 more days. The patient has been strongly encouraged on tobacco and crack cocaine cessation. She has been prescribed a nicotine patch, and she has declined referral to addiction Medicine for her other substance abuse. Patient is acute on chronic respiratory failure was secondary to crack cocaine and tobacco use resulting in exacerbation of COPD/asthma overalap and not due to severe sepsis. Final Discharge diagnosis: 1. Acute on chronic hypercapnic respiratory failure 2. Chronic respiratory failure with hypoxia 3. Obesity hypoventilation syndrome 4. Obstructive sleep apnea 5. Acute COPD/asthma overlap syndrome exacerbation 6. Crack cocaine use 7. Tobacco use disorder 8. Diabetes mellitus Time Attestation Discharge Coordination Time (in mins): 35 Quality: Safe Use of Opioids Does Pt have an Active Cancer Diagnosis on the Problem List?: No Quality: Stroke Does the patient have a stroke diagnosis?: No Physical Exam Vital Signs: Vital Signs: Last Vital Signs Temp 97.5 F 10/01/24 07:24 Pulse 83 10/01/24 07:24 Resp 20 10/01/24 07:24 BP 164/74 H 10/01/24 07:24 Pulse Ox 94 10/01/24 07:24 O2 Del Method Nasal Cannula 10/01/24 07:24 O2 Flow Rate 2 10/01/24 07:24 BMI result Body Mass Index 32.3 Const: Other: General - no acute distress, appears comfortable Cardiovascular - regular rate and rhythm, S1-S2 Lungs - normal respiratory effort, clear to auscultation bilaterally, no wheezing Abdomen - soft, nontender, no rebound or guarding Extremities - no edema bilaterally Neuro - awake and alert, no focal deficits DS: Data Data Completed and Pending Completed studies during hospitalization [Text1]: Procedures Assistance with Respiratory Ventilation, Less than 24 Consecutive Hours, Continuous Positive Airway Pressure (08/01/24) Insertion of Endotracheal Airway into Trachea, Via Natural or Artificial Opening (11/03/20) Insertion of Infusion Device into Superior Vena Cava, Percutaneous Approach (11/03/20) Respiratory Ventilation, Less than 24 Consecutive Hours (11/03/20) Labs on day of discharge: Laboratory Results - last 24 hr 09/30/24 09/30/24 09/30/24 11:40 17:50 18:35 POC Glucose 352 H* 202 H Urine Opiates Screen Not Detected Ur Buprenorphine Scrn Not Detected Ur Oxycodone Screen Not Detected Urine Methadone Screen Not Detected Urine Fentanyl Screen Not Detected Ur Barbiturates Screen Not Detected Ur Phencyclidine Scrn Not Detected Ur Amphetamines Screen Not Detected U Benzodiazepines Scrn Not Detected Urine Cocaine Screen POSITIVE H U Marijuana (THC) Screen Not Detected 09/30/24 10/01/24 21:01 07:06 POC Glucose 180 H 141 H Urine Opiates Screen Ur Buprenorphine Scrn Ur Oxycodone Screen Urine Methadone Screen Urine Fentanyl Screen Ur Barbiturates Screen Ur Phencyclidine Scrn Ur Amphetamines Screen U Benzodiazepines Scrn Urine Cocaine Screen U Marijuana (THC) Screen Preliminary micro results at discharge 09/30/24 06:57 Blood Culture - Preliminary Blood - Venous No growth after 24 hours. 09/30/24 06:42 Blood Culture - Preliminary Blood - Venous No growth after 24 hours. Discharge Plan Discharge Anticipated Discharge Date/Time: 10/01/24 09:34 Patient Disposition: Home Health Service Discharge Diagnosis: COPD, Acute on chronic resp failure Referrals: Joe Hale FNP- [Primary Care Provider] - 1 Week Discharge Medications: New prednisone 20 mg tablet 40 mg PO DAILY Qty: 10 0RF nicotine 21 mg/24 hr patch 24 hour 1 patch transdermal Q24H Qty: 28 0RF cefuroxime axetil 500 mg tablet 500 mg PO BID Qty: 10 0RF Continued (DME) lancets [FreeStyle Lancets] 28 gauge misc See Rx Instructions .ROUTE .MEDSUPPLY Qty: 100 1RF Rx Instructions: Use to check blood sugar daily or if symptomatic hypo/hypergylcemia (DME) 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 meter [FreeStyle Lite Meter] Kit See Rx Instructions .ROUTE .MEDSUPPLY Qty: 1 0RF Rx Instructions: Use to check blood sugar daily or if symptomatic for hypo/hyperglycemia (DME) FreeStyle Lite Strips Strip See Rx Instructions .ROUTE .MEDSUPPLY Qty: 100 1RF Rx Instructions: Use to check blood sugar daily or if symptomatic hypo/hypergylcemia furosemide 20 mg tablet 20 mg PO DAILY Qty: 90 3RF aspirin 81 mg tablet,delayed release (DR/EC) 81 mg PO DAILY 90 Days Qty: 90 1RF theophylline 400 mg tablet extended release 24 hr 400 mg PO BID 90 Days Qty: 180 4RF albuterol sulfate [Ventolin HFA] 90 mcg/actuation HFA aerosol inhaler 2 puff inhalation Q6H PRN (Reason: for wheezing) Qty: 1 6RF acetaminophen 650 mg tablet extended release 650 mg PO Q12H PRN (Reason: pain) 30 Days Qty: 60 0RF atorvastatin 20 mg tablet 20 mg PO BEDTIME 90 Days Qty: 90 0RF glipizide 5 mg tablet 5 mg PO DAILY Qty: 90 1RF gabapentin 800 mg tablet 800 mg PO QID 30 Days Qty: 120 0RF (DME) cane Device See Rx Instructions .Route Qty: 1 0RF Rx Instructions: Standard cane (DME) Rollator walker See Rx Instructions .Route .MEDSUPPLY Qty: 1 0RF Rx Instructions: As directed (DME) pulse oximeter See Rx Instructions .Route .MEDSUPPLY Qty: 1 0RF Rx Instructions: As directed fexofenadine [Elisabeth Allergy] 180 mg tablet 180 mg PO DAILY Qty: 30 3RF glucose 4 gram tablet,chewable 16 g PO Q15M MDD 8 tabs PRN (Reason: hypoglycemia) Qty: 100 1RF Rx Instructions: until symptoms of low blood sugar are controlled (DME) FreeStyle Jemima 3 Plus Sensor Device See Rx Instructions .Route Qty: 2 5RF Rx Instructions: To monitor blood sugars 4 times per day. Change sensor every 15 days (DME) FreeStyle Jemima 3 [place] Misc See Rx Instructions .Route Qty: 1 0RF Rx Instructions: To monitor blood sugar 4 times per day tizanidine 4 mg tablet 4 mg PO Q12H PRN (Reason: muscle spasm) 30 Days Qty: 60 0RF Rx Instructions: do not take concurrently with famotidine calcium carbonate-vitamin D3 500 mg-10 mcg (400 unit) tablet 1 tab PO DAILY albuterol sulfate 2.5 mg /3 mL (0.083 %) solution for nebulization 2.5 mg inhalation Q4H PRN (Reason: Shortness Of Breath/Wheezing) (DME) [place] Misc See Rx Instructions .Route Qty: 1 0RF Rx Instructions: As directed ibuprofen 800 mg tablet 800 mg PO BID PRN (Reason: Headache) Rx Instructions: please use sparingly due to diabetes losartan 50 mg tablet 50 mg PO DAILY topiramate 25 mg tablet 25 mg PO BID Qty: 60 0RF ipratropium-albuterol 0.5 mg-3 mg(2.5 mg base)/3 mL solution for nebulization 3 ml INHALATION TID Stiolto Respimat 2.5-2.5 mcg/actuation mist 2 puff INHALATION DAILY sertraline 100 mg tablet 150 mg PO DAILY 90 Days Qty: 135 0RF esomeprazole magnesium 40 mg capsule,delayed release(DR/EC) 40 mg PO DAILY Qty: 30 3RF Discharge Orders: Discharge Order (Routine); Ordered 10/01/24 Ordered By: Burt Rodríguez Diet: Advance to usual diet Activity on Discharge: As tolerated Stand Alone Forms: Patient Portal Discharge page Print Language: Swedish Activity Restrictions/Additional Instructions: Stop smoking Continue to use your nebulizer treatment Prednisone antibiotic as prescribed Follow with your PCP Report to ER if not better Care Plan Goals: To stay healthy and out of the hospital. Health Concerns: COPD Tobacco Use Crack use Plan of Treatment: see discharge summary Assessment: see discharge summary Patient Instructions: Asthma (ED), COPD (Chronic Obstructive Pulmonary Disease) (ED)
== END 2024-10-01 10:28 | disposition home health service (06) | DRG 140 ==
LOC: HO.ED 08:11 → HO.EDOVER 10:21 → HO.IMC 17:18
PROVIDERS: Internal Medicine; Physician Assistant Medical; Admitting Provider Family Medicine; Emergency Provider Emergency Medicine; PCP Nurse Practitioner Family; Visit Provider Family Medicine
DX: J44.1 Chronic obstructive pulmonary disease with (acute) exacerbation (principal); J96.21 Acute and chronic respiratory failure with hypoxia; Z99.81 Dependence on supplemental oxygen; E66.2 Morbid (severe) obesity with alveolar hypoventilation; F17.210 Nicotine dependence, cigarettes, uncomplicated; Z71.6 Tobacco abuse counseling; Z68.32 Body mass index [BMI] 32.0-32.9, adult; J96.22 Acute and chronic respiratory failure with hypercapnia; J45.901 Unspecified asthma with (acute) exacerbation; F14.90 Cocaine use, unspecified, uncomplicated; E11.9 Type 2 diabetes mellitus without complications; Z20.822 Contact with and (suspected) exposure to COVID-19; Z79.82 Long term (current) use of aspirin; Z79.899 Other long term (current) drug therapy
CPT/HCPCS: 0241U; 36415; 71045; 80053; 80307; 82803; 82947; 83605; 83735; 85025; 87040; 93005; 94640; 94660; 99285; J0696; J1650; J2919; J3475

== ENCOUNTER → 2024-09-30 05:47 | Outpatient (BNV) | payer OTHER, SELFPAY | PROVIDERS: Emergency Provider Internal Medicine; Visit Provider Radiology Diagnostic Radiology | DX: R06.02 Shortness of breath (principal) | CPT/HCPCS: 71045 ==

== ENCOUNTER → 2024-09-30 06:54 | Outpatient (BNV) | payer OTHER, SELFPAY | PROVIDERS: Admitting Provider Family Medicine; Emergency Provider Emergency Medicine; PCP Nurse Practitioner Family; Visit Provider Internal Medicine | DX: I49.9 Cardiac arrhythmia, unspecified (principal); I25.2 Old myocardial infarction | CPT/HCPCS: 93010 ==

== ENCOUNTER → 2024-09-30 10:09 | Outpatient (BNV) | payer OTHER, SELFPAY | PROVIDERS: Admitting Provider Family Medicine; Emergency Provider Emergency Medicine; Visit Provider Family Medicine | DX: J44.0 Chronic obstructive pulmonary disease with (acute) lower respiratory infection (principal) | CPT/HCPCS: 99239 ==

== ENCOUNTER 2024-10-12 20:05 | Emergency (ER) | payer OTHER, SELFPAY ==
--- NOTE | 2024-10-12 | ECG_ITS ---
Test Reason : CHEST PAIN Blood Pressure : */* mmHG Vent. Rate : 115 BPM Atrial Rate : 115 BPM P-R Int : 122 ms QRS Dur : 84 ms QT Int : 360 ms P-R-T Axes : 67 161 57 degrees QTcB Int : 498 ms Sinus tachycardia with Premature supraventricular complexes Right ventricular hypertrophy Inferior infarct (cited on or before 11-Sep-2024) Abnormal ECG When compared with ECG of 30-Sep-2024 07:05, Premature supraventricular complexes are now Present Referred By: Generic ED Physician Electronically Signed By: PAUL VARGAS MD
--- NOTE | ~2024-10-12 | XR_ITS ---
CLINICAL HISTORY: sob 1 view chest x-ray Comparison: CR - XR CHEST 1V - 09/30/24 06:03 EDT Findings: The lungs are clear. Heart size is normal. No acute fracture. IMPRESSION: 1. No acute findings. This document has been electronically signed by: Marie Gasca MD on 10/12/2024 21:13:23
[2024-10-12 20:18] VITALS: BP 122/39; BP 124/68; PULSE 117; PULSE 66; RESP 25; TEMP 36.9; O2SAT 95; O2SAT 99; BMI 35.1
[2024-10-12 20:39] LABS: MANUAL DIFF FLAG NO
[2024-10-12 20:41] LABS: Basophils Percent Auto 0.2 % (0-2); Eosinophils Absolute Auto 0.2 X10*3/uL (0.0-0.4); Eosinophils Percent Auto 1.3 % (0-4); Hematocrit 37.3 % (37.0-47.0); Hemoglobin 11.4 g/dl (12.0-16.0); Imm Gran Abs Auto 0.05 X10*3/uL (0.00-0.03); Imm Gran Pct Auto 0.3 % (0.0-0.4); Lymphocytes Absolute Auto 2.8 X10*3/uL (1.2-4.9); Lymphocytes Percent Auto 18.2 % (20-40); Mean Corpuscular HGB Conc 30.6 g/dl (31.0-35.0); Mean Corpuscular Hemoglobin 23.2 pg (27.0-33.0); Mean Corpuscular Volume 75.8 fL (80.0-98.0); Mean Platelet Volume 9.1 fL (9.4-12.3); Monocytes Absolute Auto 1.1 X10*3/uL (0.1-1.2); Monocytes Percent Auto 7.5 % (2-11); Neutrophils Percent Auto 72.5 % (45-73); Platelet Count 286 X10*3/uL (160-400); Red Blood Count 4.92 X10*6/uL (4.20-5.50); Red Cell Distribution Width 18.2 % (11.0-16.0); White Blood Count 15.2 X10*3/uL (4.8-10.8)
[2024-10-12] MEDS: 0.9 % Sodium Chloride 1,000 ML 999 ML IVCONT (20:55)
[2024-10-12] MEDS: Magnesium Sulfate/H2O 2 GM/50 ML PIGGYBACK IV (20:55)
[2024-10-12] MEDS: methylPREDNISolone Sod Succ 125 MG/2 ML VIAL IVPUSH (20:55)
[2024-10-12 20:58] LABS: Alanine Aminotransferase 10 U/L (0-31); Albumin Level 3.8 g/dL (3.5-5.0); Alkaline Phosphatase 98 U/L (39-117); Anion Gap 10 (12-20); Aspartate Amino Transferase 13 U/L (5-31); Bilirubin Total 0.2 mg/dL (0.0-1.0); Blood Urea Nitrogen 15 mg/dL (9-16); Calcium 9.3 mg/dL (8.4-10.2); Carbon Dioxide 25 mmol/L (22-29); Chloride 108 mmol/L (96-108); Estimated Glomerular Filt Rate > 60; Glucose Random 116 mg/dL (60-115); Potassium 3.8 mmol/L (3.3-5.1); Sodium 139 mmol/L (135-145); Total Protein 6.5 g/dL (6.5-8.0)
[2024-10-12 21:02] LABS: B Type Natriuretic Peptide 40 pg/mL (<100); Troponin-I High Sensitivity 30.5 ng/L (<3.5-17.0)
[2024-10-12 21:02] LABS: Venous Blood Gas Refer to POC result
[2024-10-12 21:03] LABS: VBG Base Excess 5.5 mmol/L; VBG HCO3 29 mmol/L (22-26); VBG pCO2 41 mmHg; VBG pH 7.46 (7.32-7.43); VBG pO2 70 mmHg
[2024-10-12] MEDS: Albuterol Sulfate 5 MG, Albuterol/Iprat 2.5/0.5MG 3 ML 3 ML INHALE (21:04)
[2024-10-12 21:06] VITALS: PULSE 96; RESP 24; O2SAT 94
--- NOTE | 2024-10-12 21:13 | ED_ITS ---
HPI - Chest Pain General Chief Complaint: Chest Pain Stated Complaint: r sided shest pain sob 2hrs hx copd Time Seen by Provider: 10/12/24 21:10 Source: patient Mode of arrival: EMS Limitations: no limitations History of Present Illness ED Provider: HPI narrative: Patient is 54 years old active 30+ pack-year smoker, with underlying history of severe asthma/COPD overlap syndrome on 2-3 L of supplemental oxygen, HENRY on nocturnal BiPAP with history of cocaine use with frequent hospitalization for respiratory failure last discharge was on 10/01/2024 comes here as prior to arrival patient noticed sharp pain in the right chest with increased shortness a breath after arrival in the ED and receiving your nebulizing treatment patient feeling much chest pain has improved no significant change in the cough no fever no left-sided chest pain cough is mostly dry patient is saturating 95% on 3 L patient and just finished a prednisone on 10/06 denies any leg swelling or calf pain Related Data Home Medications ?Medication ?Instructions ?Recorded ?Confirmed calcium 500 mg (as 1 tab PO DAILY 06/26/24 09/30/24 carbonate)-vitamin D3 10 mcg (400 unit) tablet albuterol sulfate 2.5 mg/3 mL 2.5 mg inhalation Q4H PRN 07/13/24 09/30/24 (0.083 %) solution for nebulization Shortness Of Breath/Wheezing losartan 50 mg tablet 50 mg PO DAILY 07/17/24 09/30/24 ipratropium 0.5 mg-albuterol 3 mg 3 ml inhalation TID 09/30/24 09/30/24 (2.5 mg base)/3 mL nebulization soln tiotropium 2.5 mcg-olodaterol 2.5 2 puff inhalation DAILY 09/30/24 09/30/24 mcg/actuation mist for inhalation (Stiolto Respimat) Previous Rx's ?Medication ?Instructions ?Recorded lancets 28 gauge (FreeStyle #100 ea 01/20/21 Lancets) 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 meter (FreeStyle #1 ea 03/01/22 Lite Meter kit) blood sugar diagnostic (FreeStyle #100 ea 09/16/22 Lite Strips) furosemide 20 mg tablet 20 mg PO DAILY #90 tabs 12/09/23 aspirin 81 mg tablet,delayed 81 mg PO DAILY 90 days #90 tabs 01/01/24 release theophylline 400 mg 400 mg PO BID 90 days #180 tabs 01/27/24 tablet,extended release 24 hr albuterol sulfate 90 mcg/actuation 2 puff inhalation Q6H PRN for 04/10/24 aerosol inhaler (Ventolin HFA) wheezing #1 ea walker #1 ea 07/14/24 topiramate 25 mg tablet 25 mg PO BID #60 tabs 07/18/24 glipizide 5 mg tablet 5 mg PO DAILY #90 tabs 08/05/24 Rollator walker #1 ea 09/16/24 cane #1 ea 09/16/24 esomeprazole magnesium 40 mg 40 mg PO DAILY #30 caps 09/16/24 capsule,delayed release pulse oximeter #1 ea 09/16/24 fexofenadine 180 mg tablet 180 mg PO DAILY #30 tabs 09/17/24 (Elisabeth Allergy) FreeStyle Jemima 3 Plus Sensor #2 ea 09/22/24 (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 sensor) FreeStyle Jemima 3 [place] #1 ea 09/22/24 (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,senior drafter,cont) glucose 4 gram chewable tablet 16 g (4 x 4 gram) PO Q15M PRN 09/22/24 hypoglycemia #100 tabs tizanidine 4 mg tablet 4 mg PO Q12H PRN muscle spasm 30 09/29/24 days #60 tabs cefuroxime axetil 500 mg tablet 500 mg PO BID #10 tabs 10/01/24 nicotine 21 mg/24 hr daily 1 patch transdermal Q24H #28 ea 10/01/24 transdermal patch prednisone 20 mg tablet 40 mg (2 x 20 mg) PO DAILY #10 tabs 10/01/24 acetaminophen 650 mg 650 mg PO Q12H PRN pain 30 days 10/05/24 tablet,extended release #60 tabs gabapentin 800 mg tablet 800 mg PO QID Pain 30 days #120 10/05/24 tabs ibuprofen 800 mg tablet 800 mg PO BID PRN Headache 30 days 10/05/24 #60 tabs tramadol 50 mg tablet 50 mg PO Q6H PRN pain #20 tabs 10/12/24 atorvastatin 20 mg tablet 20 mg PO BEDTIME 90 days #90 tabs 10/13/24 sertraline 100 mg tablet 150 mg (1.5 x 100 mg) PO DAILY 90 10/13/24 days #135 tabs Allergies Allergy/AdvReac Type Severity Reaction Status Date / Time doxycycline Allergy Severe Swelling Verified 10/12/24 20:23 varenicline [From CHANTIX] Allergy Severe ANAPHYLAXIS Verified 10/12/24 20:23 azithromycin Allergy Intermediate Rash Verified 10/12/24 20:23 barium sulfate Allergy Intermediate angioedema Verified 10/12/24 20:23 cetirizine Allergy Mild Rash Verified 10/12/24 20:23 famotidine Allergy Mild Rash Verified 10/12/24 20:23 linaclotide [Linzess] Allergy Mild Rash Verified 10/12/24 20:23 Review of Systems 2 Review of Systems: Yes all other systems are reviewed and are negative [facility] Past Medical History Medical History Acute exacerbation of chronic obstructive airways disease Asthma with exacerbation Obesity hypoventilation syndrome COPD (chronic obstructive pulmonary disease) Cocaine use disorder Chronic lung disease Hypoxic respiratory failure Nocturnal hypoxemia HENRY (obstructive sleep apnea) Diabetes mellitus COPD exacerbation Crack cocaine use Hyperkalemia Metabolic acidosis Leukocytosis Chest discomfort Chronic renal failure, stage 2 (mild) SOB (shortness of breath) Asthma Smoker Rotator cuff tendonitis GERD (gastroesophageal reflux disease) Chronic idiopathic constipation Bustos's esophagus Depression High triglycerides Gastroparesis Carpal tunnel syndrome of right wrist Nausea & vomiting Hernia Acute and chronic respiratory failure, unspecified whether with hypoxia or hypercapnia HTN (hypertension) Obesity (BMI 30-39.9) Knee pain, bilateral Surgical History History of cholecystectomy (~1988) History of carpal tunnel release Hx of tubal ligation History of pubovaginal sling (~2015) History of umbilical hernia repair (~2001) Hx of section History of open reduction and internal fixation (ORIF) procedure History of esophagogastroduodenoscopy (EGD) Family History Family History Father Heart disease HENRY (obstructive sleep apnea) Family history of breast cancer Mother Asthma Emphysema, unspecified Bronchitis Smoker Alcoholism Bone marrow disease Maternal Grandmother Diabetes Social History Social History Household Members: Family and Other Household Members Other:: sister Housing: House Are you a primary care professional to a significant other at home: No Do you presently have visiting nurse or other home services: Yes (vna) Unable to assess alcohol history related to: Unknown Alcohol intake: former Comment: Sleeping Patient Tobacco Use Status: Current everyday Tobacco user Tobacco use type: Cigarette Cigarette Packs Per Day: 1 Cigarettes Per Day: 1 Years Smoked: 48 Smoked in Last 30 Days: Yes e-Cigarette/Vaping Use: Currently Using Second Hand Smoke Exposure: No Use of substances other than those prescribed or required for medical reasons: Yes Substance Use Type: Crack/Cocaine Advance Directives: Yes Advance Directives on File: Yes Advance Directives Date on File: 12/19/23 Do you have a plan to hurt others: No Plan Patient : No service: No Current occupational status: disabled 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 Physical Exam 2 Vital Signs: Vital Signs: Last Vital Signs Temp 98.6 F 10/13/24 01:36 Pulse 76 10/13/24 01:36 Resp 16 10/13/24 01:36 BP 124/76 10/13/24 01:36 Pulse Ox 95 10/13/24 01:36 O2 Del Method Nasal Cannula 10/13/24 01:36 O2 Flow Rate 3 10/13/24 01:36 Oxygen Flow Rate 3 10/12/24 20:18 BMI result Body Mass Index 35.1 Appearance: Alert. Oriented X3. No acute distress. Eyes: PERRLA, No Nystagmus ENT: Pharynx normal. Oral Mucosa moist Neck: Normal inspection. Neck supple. CVS: Normal heart rate and rhythm. Pulses normal. Respiratory: No respiratory distress. Equal air entry bilateral, bilateral prolonged expiration Abdomen: Soft and nontender. Bowel sounds are present, no mass palpable, no CVA tenderness Skin: Skin warm and dry. Normal skin color. Normal skin turgor. Extremities: No lower extremity edema. No calf tenderness Neuro: Oriented X 3. No motor deficit. No sensory deficit.No cerebellar signs , cranial nerves II-XII intact Medications Administered Discontinued Medications Generic Name Dose Route Start Last Admin Trade Name Freq PRN Reason Stop Dose Admin Albuterol Sulfate 5 mg 10/12/24 21:30 10/12/24 21:37 Albuterol Sulfate (0.083%) 2.5 Mg/3 Ml Vial.Neb INHALE 10/12/24 21:31 5 mg ONCE ONE Administration Albuterol Sulfate 5 mg/ 0 mg 10/12/24 21:03 10/12/24 21:04 Albuterol/Ipratropium 3 ml INHALE 10/12/24 21:04 1 each ONCE ONE Administration Magnesium Sulfate 2 gm in 50 mls @ 25 mls/hr 10/12/24 20:42 10/12/24 21:30 Magnesium Sulfate/H2o IV 10/12/24 22:41 Infused ONCE ONE Infusion Sodium Chloride 1,000 mls @ 999 mls/hr 10/12/24 20:49 10/12/24 22:10 Ns IVCONT 10/12/24 21:49 Infused .Q1H1M ONE Infusion Methylprednisolone Sodium Succinate 125 mg 10/12/24 20:42 10/12/24 20:55 Methylprednisolone Sod Succ 125 Mg/2 Ml Vial IVPUSH 10/12/24 20:43 125 mg ONCE ONE Administration Oxycodone HCl 5 mg 10/12/24 23:05 10/12/24 23:12 Oxycodone Hcl Immed Release 5 Mg Tablet PO 10/12/24 23:06 5 mg ONCE ONE Administration Medical Decision Making Medical Decision Making [facility] Narrative: Patient with COPD/asthma oxygen dependent with frequent respiratory failure comes here for right-sided just chest x-ray without any acute findings patient's chest pain improved after nebulizing treatment pain is likely pleuritic patient has had slightly elevated troponin which is chronic will repeat troponin to see any delta change EKG without any ischemic change Differential Diagnosis Differential Diagnoses: The differential diagnosis associated with the presentation includes Pleurisy/pneumonia/pneumothorax/ACS/musculoskeletal Lab Data [facility] Lab Attestation statement: I reviewed the patient's lab results. 10/12/24 20:32 10/12/24 20:32 Labs: Lab Results 10/12/24 10/12/24 10/12/24 Range/Units 20:32 21:00 22:28 WBC 15.2 H (4.8-10.8) X10*3/uL RBC 4.92 (4.20-5.50) X10*6/uL Hgb 11.4 L (12.0-16.0) g/dl Hct 37.3 (37.0-47.0) % MCV 75.8 L (80.0-98.0) fL MCH 23.2 L (27.0-33.0) pg MCHC 30.6 L (31.0-35.0) g/dl RDW 18.2 H (11.0-16.0) % Plt Count 286 D (160-400) X10*3/uL MPV 9.1 L (9.4-12.3) fL Immature Gran % (Auto) 0.3 (0.0-0.4) % Neut % (Auto) 72.5 (45-73) % Lymph % (Auto) 18.2 L (20-40) % [place] % (Auto) 7.5 (2-11) % Eos % (Auto) 1.3 (0-4) % Baso % (Auto) 0.2 (0-2) % Lymph # (Auto) 2.8 (1.2-4.9) X10*3/uL [place] # (Auto) 1.1 (0.1-1.2) X10*3/uL Eos # (Auto) 0.2 (0.0-0.4) X10*3/uL Baso # (Auto) 0.0 (0.0-0.2) X10*3/uL Abs Immat Gran (auto) 0.05 H (0.00-0.03) X10*3/uL Absolute Neuts (auto) 11.0 H (2.0-8.3) x10*3/uL Absolute Nucleated RBC 0.000 (0.0-0.012) X10*3/uL Nucleated RBC % (auto) 0.0 (0.0-0.2) /100WBC VBG pH 7.46 H (7.32-7.43) VBG pCO2 41 mmHg VBG pO2 70 mmHg VBG HCO3 29 H (22-26) mmol/L VBG O2 Saturation 94.0 % VBG Base Excess 5.5 mmol/L Sodium 139 (135-145) mmol/L Potassium 3.8 (3.3-5.1) mmol/L Chloride 108 (96-108) mmol/L Carbon Dioxide 25 (22-29) mmol/L Anion Gap 10 L (12-20) BUN 15 (9-16) mg/dL Creatinine 0.74 (0.5-1.4) mg/dL Estim Creat Clear Calc 77.0 Estimated GFR > 60 Random Glucose 116 H (60-115) mg/dL Calcium 9.3 (8.4-10.2) mg/dL Total Bilirubin 0.2 (0.0-1.0) mg/dL AST 13 (5-31) U/L ALT 10 (0-31) U/L Alkaline Phosphatase 98 (39-117) U/L Troponin I High Sens 30.5 H D 23.9 H (<3.5-17.0) ng/L B-Natriuretic Peptide 40 (<100) pg/mL Total Protein 6.5 (6.5-8.0) g/dL Albumin 3.8 (3.5-5.0) g/dL Influenza Type A (PCR) NEGATIVE (Negative) Influenza Type B (PCR) NEGATIVE (Negative) RSV RNA Qual (PCR) NEGATIVE (Negative) SARS-CoV-2 RNA (RT-PCR) NEGATIVE (Negative) Discharge Plan Discharge Clinical Impression: Chest pain, pleuritic Patient Disposition: Home, Self-Care Instructions: Pleurisy (DC) Additional Instructions: No chest pain is likely from inflammation of the lining of the lung tramadol for pain as prescribed Continue nebulizing treatment and oxygen at home Prescriptions: New tramadol 50 mg tablet 50 mg PO Q6H PRN (Reason: pain) Qty: 20 0RF No Action (DME) lancets [FreeStyle Lancets] 28 gauge misc See Rx Instructions .ROUTE .MEDSUPPLY Qty: 100 1RF Rx Instructions: Use to check blood sugar daily or if symptomatic hypo/hypergylcemia (DME) 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 meter [FreeStyle Lite Meter] Kit See Rx Instructions .ROUTE .MEDSUPPLY Qty: 1 0RF Rx Instructions: Use to check blood sugar daily or if symptomatic for hypo/hyperglycemia (DME) FreeStyle Lite Strips Strip See Rx Instructions .ROUTE .MEDSUPPLY Qty: 100 1RF Rx Instructions: Use to check blood sugar daily or if symptomatic hypo/hypergylcemia furosemide 20 mg tablet 20 mg PO DAILY Qty: 90 3RF aspirin 81 mg tablet,delayed release (DR/EC) 81 mg PO DAILY 90 Days Qty: 90 1RF theophylline 400 mg tablet extended release 24 hr 400 mg PO BID 90 Days Qty: 180 4RF albuterol sulfate [Ventolin HFA] 90 mcg/actuation HFA aerosol inhaler 2 puff inhalation Q6H PRN (Reason: for wheezing) Qty: 1 6RF glipizide 5 mg tablet 5 mg PO DAILY Qty: 90 1RF (DME) cane Device See Rx Instructions .Route Qty: 1 0RF Rx Instructions: Standard cane (DME) Rollator walker See Rx Instructions .Route .MEDSUPPLY Qty: 1 0RF Rx Instructions: As directed (DME) pulse oximeter See Rx Instructions .Route .MEDSUPPLY Qty: 1 0RF Rx Instructions: As directed fexofenadine [Elisabeth Allergy] 180 mg tablet 180 mg PO DAILY Qty: 30 3RF glucose 4 gram tablet,chewable 16 g PO Q15M MDD 8 tabs PRN (Reason: hypoglycemia) Qty: 100 1RF Rx Instructions: until symptoms of low blood sugar are controlled (DME) FreeStyle Jemima 3 Plus Sensor Device See Rx Instructions .Route Qty: 2 5RF Rx Instructions: To monitor blood sugars 4 times per day. Change sensor every 15 days (DME) FreeStyle Jemima 3 [place] Misc See Rx Instructions .Route Qty: 1 0RF Rx Instructions: To monitor blood sugar 4 times per day tizanidine 4 mg tablet 4 mg PO Q12H PRN (Reason: muscle spasm) 30 Days Qty: 60 0RF Rx Instructions: do not take concurrently with famotidine ibuprofen 800 mg tablet 800 mg PO BID PRN (Reason: Headache) 30 Days Qty: 60 0RF Rx Instructions: please use sparingly due to diabetes acetaminophen 650 mg tablet extended release 650 mg PO Q12H PRN (Reason: pain) 30 Days Qty: 60 0RF gabapentin 800 mg tablet 800 mg PO QID 30 Days Qty: 120 0RF sertraline 100 mg tablet 150 mg PO DAILY 90 Days Qty: 135 0RF atorvastatin 20 mg tablet 20 mg PO BEDTIME 90 Days Qty: 90 0RF calcium carbonate-vitamin D3 500 mg-10 mcg (400 unit) tablet 1 tab PO DAILY albuterol sulfate 2.5 mg /3 mL (0.083 %) solution for nebulization 2.5 mg inhalation Q4H PRN (Reason: Shortness Of Breath/Wheezing) (DME) mary anne Misc See Rx Instructions .Route Qty: 1 0RF Rx Instructions: As directed losartan 50 mg tablet 50 mg PO DAILY topiramate 25 mg tablet 25 mg PO BID Qty: 60 0RF ipratropium-albuterol 0.5 mg-3 mg(2.5 mg base)/3 mL solution for nebulization 3 ml INHALATION TID Stiolto Respimat 2.5-2.5 mcg/actuation mist 2 puff INHALATION DAILY prednisone 20 mg tablet 40 mg PO DAILY Qty: 10 0RF nicotine 21 mg/24 hr patch 24 hour 1 patch transdermal Q24H Qty: 28 0RF cefuroxime axetil 500 mg tablet 500 mg PO BID Qty: 10 0RF esomeprazole magnesium 40 mg capsule,delayed release(DR/EC) 40 mg PO DAILY Qty: 30 3RF Interventions: ED Discharge Assessment Last Done: 10/13/24 01:36 Discharge Date/Time: 10/13/24 01:37 Print Language: [place]i
[2024-10-12 21:18] LABS: Influenza A PCR NEGATIVE (Negative); Influenza B PCR NEGATIVE (Negative); Resp Syncy Virus RNA Qual PCR NEGATIVE (Negative); SARS COV2 PCR INHOUSE NEGATIVE (Negative)
[2024-10-12] MEDS: Albuterol Sulfate (0.083%) 2.5 MG/3 ML VIAL.NEB 5 MG INHALE (21:37)
[2024-10-12 21:38] VITALS: PULSE 104; RESP 22; O2SAT 94
--- NOTE | 2024-10-12 21:47 | PC.NURSE ---
pt biba from home, a&ox4, respirations even and unlabored. pt reports onset of right sided chest pain and shortness of breath x2 hours. pt is on 3L nc baseline and reported no relief. ems gave pt duoneb and pt reported minimal relief. ems placed 20G right ac. on arrival, labs and ekg obtained and 20G placed in left wrist. provider aware and rt at bedside.
[2024-10-12 22:00] VITALS: BP 122/79; PULSE 52; RESP 23; TEMP 36.7; O2SAT 93
--- NOTE | 2024-10-12 22:11 | PC.NURSE ---
pt alert in mothers arms, crying when touched. per mother, pt has been increasingly grabbing at both of her ears as well as having nasal drainage. per mother pt has been having fevers of 110+. when rn was placing learning disabilities teacher on pt, pt was crying but consolable. pt hr 114.
[2024-10-12 22:51] LABS: Troponin-I High Sensitivity 23.9 ng/L (<3.5-17.0)
[2024-10-12] MEDS: oxyCODONE HCl Immed Release 5 MG TABLET PO (23:12)
[2024-10-13 01:35] VITALS: BP 124/76; PULSE 76; RESP 16; TEMP 37; O2SAT 95
--- NOTE | 2024-10-13 01:35 | PC.NURSE ---
ems at bedside for transport. report given
[2024-10-13 01:36] VITALS: BP 124/76; PULSE 76; RESP 16; TEMP 37; O2SAT 95
== END 2024-10-13 01:37 | disposition home or self-care (01) ==
PROVIDERS: Emergency Provider Internal Medicine; PCP Nurse Practitioner Family
DX: R07.89 Other chest pain (principal); R06.02 Shortness of breath; R11.0 Nausea; Z87.891 Personal history of nicotine dependence; Z79.899 Other long term (current) drug therapy; Z03.818 Encounter for observation for suspected exposure to other biological agents ruled out
CPT/HCPCS: 0241U; 36415; 71045; 80053; 82803; 83880; 84484; 85025; 93005; 94640; 96361; 96365; 96375; 99284; 99285; J2919; J3475

== ENCOUNTER → 2024-10-12 20:25 | Outpatient (BNV) | payer OTHER, SELFPAY | PROVIDERS: Emergency Provider Internal Medicine; PCP Nurse Practitioner Family; Visit Provider Internal Medicine Cardiovascular Disease | DX: I49.1 Atrial premature depolarization (principal); I51.7 Cardiomegaly; I25.2 Old myocardial infarction; R00.0 Tachycardia, unspecified | CPT/HCPCS: 93010 ==

== ENCOUNTER → 2024-10-12 20:40 | Outpatient (BNV) | payer OTHER, SELFPAY | PROVIDERS: Emergency Provider Internal Medicine; PCP Nurse Practitioner Family; Visit Provider Student in an Organized Health Care Education/Training Program | DX: R06.02 Shortness of breath (principal) | CPT/HCPCS: 71045 ==

== ENCOUNTER 2024-10-14 18:53 | Inpatient (IN) | payer OTHER, SELFPAY ==
[2024-10-14] VITALS (8 sets, daily range): BP systolic 111–150; BP diastolic 60–83; PULSE 109–144; RESP 18–30; TEMP 36.1–36.6; O2SAT 85–96; BMI 31.8
--- NOTE | ~2024-10-14 | XR_ITS ---
CLINICAL HISTORY: sob copd Single view of the chest. Comparison 10/12/2024. Findings: Body habitus limits the study. The heart is enlarged. No definite consolidation or pleural effusion is seen. Impression: No definite consolidation. There is mild interstitial thickening in the lungs that could be artifactual although mild edema is technically a possibility. This document has been electronically signed by: Iftikhar Bond MD on 10/14/2024 19:32:20
--- NOTE | 2024-10-14 18:57 | ECG_ITS ---
Test Reason : sob Blood Pressure : */* mmHG Vent. Rate : 126 BPM Atrial Rate : 126 BPM P-R Int : 140 ms QRS Dur : 76 ms QT Int : 298 ms P-R-T Axes : 73 209 67 degrees QTcB Int : 431 ms Sinus tachycardia with occasional Premature ventricular complexes Possible Right ventricular hypertrophy Possible Lateral infarct , age undetermined Inferior infarct Abnormal ECG When compared with ECG of 12-Oct-2024 20:25, Significant changes have occurred Referred By: Ly Bazan Electronically Signed By: PAUL VARGAS MD
--- NOTE | 2024-10-14 18:59 | ED.SOB ---
HPI - SOB/Dyspnea General Chief Complaint: Dyspnea Stated Complaint: COPD exacerbation, respiratory distress, solu, epi Source: patient and EMS Mode of arrival: EMS Limitations: other History of Present Illness ED Provider: Dr. Ly Bazan HPI Narrative: Patient comes to the emergency room via ambulance. According to EMS, patient tried giving herself nebulization treatments but she was feeling very short of breath. When EMS arrived, patient was not moving air well, patient was extremely anxious. Patient was giving IM epinephrine, IV Solu-Medrol and 2 DuoNebs, put on CPAP. On arrival, patient unable to talk due to shortness of breath. Related Data Home Medications ?Medication ?Instructions ?Recorded ?Confirmed calcium 500 mg (as 1 tab PO DAILY 06/26/24 09/30/24 carbonate)-vitamin D3 10 mcg (400 unit) tablet albuterol sulfate 2.5 mg/3 mL 2.5 mg inhalation Q4H PRN 07/13/24 09/30/24 (0.083 %) solution for nebulization Shortness Of Breath/Wheezing losartan 50 mg tablet 50 mg PO DAILY 07/17/24 09/30/24 ipratropium 0.5 mg-albuterol 3 mg 3 ml inhalation TID 09/30/24 09/30/24 (2.5 mg base)/3 mL nebulization soln tiotropium 2.5 mcg-olodaterol 2.5 2 puff inhalation DAILY 09/30/24 09/30/24 mcg/actuation mist for inhalation (Stiolto Respimat) Previous Rx's ?Medication ?Instructions ?Recorded lancets 28 gauge (FreeStyle #100 ea 01/20/21 Lancets) 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 meter (FreeStyle #1 ea 03/01/22 Lite Meter kit) blood sugar diagnostic (FreeStyle #100 ea 09/16/22 Lite Strips) furosemide 20 mg tablet 20 mg PO DAILY #90 tabs 12/09/23 aspirin 81 mg tablet,delayed 81 mg PO DAILY 90 days #90 tabs 01/01/24 release theophylline 400 mg 400 mg PO BID 90 days #180 tabs 01/27/24 tablet,extended release 24 hr albuterol sulfate 90 mcg/actuation 2 puff inhalation Q6H PRN for 04/10/24 aerosol inhaler (Ventolin HFA) wheezing #1 ea walker #1 ea 07/14/24 topiramate 25 mg tablet 25 mg PO BID #60 tabs 07/18/24 glipizide 5 mg tablet 5 mg PO DAILY #90 tabs 08/05/24 Rollator walker #1 ea 09/16/24 cane #1 ea 09/16/24 esomeprazole magnesium 40 mg 40 mg PO DAILY #30 caps 09/16/24 capsule,delayed release pulse oximeter #1 ea 09/16/24 fexofenadine 180 mg tablet 180 mg PO DAILY #30 tabs 09/17/24 (Elisabeth Allergy) FreeStyle Jemima 3 Plus Sensor #2 ea 09/22/24 (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 sensor) FreeStyle Jemima 3 [place] #1 ea 09/22/24 (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,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,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) glucose 4 gram chewable tablet 16 g (4 x 4 gram) PO Q15M PRN 09/22/24 hypoglycemia #100 tabs tizanidine 4 mg tablet 4 mg PO Q12H PRN muscle spasm 30 09/29/24 days #60 tabs cefuroxime axetil 500 mg tablet 500 mg PO BID #10 tabs 10/01/24 nicotine 21 mg/24 hr daily 1 patch transdermal Q24H #28 ea 10/01/24 transdermal patch prednisone 20 mg tablet 40 mg (2 x 20 mg) PO DAILY #10 tabs 10/01/24 acetaminophen 650 mg 650 mg PO Q12H PRN pain 30 days 10/05/24 tablet,extended release #60 tabs gabapentin 800 mg tablet 800 mg PO QID Pain 30 days #120 10/05/24 tabs ibuprofen 800 mg tablet 800 mg PO BID PRN Headache 30 days 10/05/24 #60 tabs tramadol 50 mg tablet 50 mg PO Q6H PRN pain #20 tabs 10/12/24 atorvastatin 20 mg tablet 20 mg PO BEDTIME 90 days #90 tabs 10/13/24 sertraline 100 mg tablet 150 mg (1.5 x 100 mg) PO DAILY 90 10/13/24 days #135 tabs Allergies Allergy/AdvReac Type Severity Reaction Status Date / Time doxycycline Allergy Severe Swelling Verified 10/14/24 19:41 varenicline [From CHANTIX] Allergy Severe ANAPHYLAXIS Verified 10/14/24 19:41 azithromycin Allergy Intermediate Rash Verified 10/14/24 19:41 barium sulfate Allergy Intermediate angioedema Verified 10/14/24 19:41 cetirizine Allergy Mild Rash Verified 10/14/24 19:41 famotidine Allergy Mild Rash Verified 10/14/24 19:41 linaclotide [Linzess] Allergy Mild Rash Verified 10/14/24 19:41 [facility] Past Medical History Medical History Acute exacerbation of chronic obstructive airways disease Asthma with exacerbation Obesity hypoventilation syndrome COPD (chronic obstructive pulmonary disease) Cocaine use disorder Chronic lung disease Hypoxic respiratory failure Nocturnal hypoxemia HENRY (obstructive sleep apnea) Diabetes mellitus COPD exacerbation Crack cocaine use Hyperkalemia Metabolic acidosis Leukocytosis Chest discomfort Chronic renal failure, stage 2 (mild) SOB (shortness of breath) Asthma Smoker Rotator cuff tendonitis GERD (gastroesophageal reflux disease) Chronic idiopathic constipation Bustos's esophagus Depression High triglycerides Gastroparesis Carpal tunnel syndrome of right wrist Nausea & vomiting Hernia Acute and chronic respiratory failure, unspecified whether with hypoxia or hypercapnia HTN (hypertension) Obesity (BMI 30-39.9) Knee pain, bilateral Surgical History History of cholecystectomy (~1988) History of carpal tunnel release Hx of tubal ligation History of pubovaginal sling (~2015) History of umbilical hernia repair (~2001) Hx of section History of open reduction and internal fixation (ORIF) procedure History of esophagogastroduodenoscopy (EGD) Family History Family History Father Heart disease HENRY (obstructive sleep apnea) Family history of breast cancer Mother Asthma Emphysema, unspecified Bronchitis Smoker Alcoholism Bone marrow disease Maternal Grandmother Diabetes Social History Social History Household Members: Family and Other Household Members Other:: sister Housing: House Are you a primary rn progressive care unit to a significant other at home: No Do you presently have visiting nurse or other home services: Yes (vna) Unable to assess alcohol history related to: Unknown Alcohol intake: former Comment: Sleeping Patient Tobacco Use Status: Current everyday Tobacco user Tobacco use type: Cigarette Cigarette Packs Per Day: 1 Cigarettes Per Day: 1 Years Smoked: 48 e-Cigarette/Vaping Use: Currently Using Second Hand Smoke Exposure: No Use of substances other than those prescribed or required for medical reasons: Unknown Substance Use Type: Crack/Cocaine Advance Directives: Yes Advance Directives on File: Yes Advance Directives Date on File: 12/19/23 Do you have a plan to hurt others: No Plan service: No Current occupational status: disabled 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 Physical Exam Vital Signs: Vital Signs: Last Vital Signs Temp 97.9 F 10/14/24 22:35 Pulse 114 H 10/14/24 22:35 Resp 20 10/14/24 22:35 BP 150/83 H 10/14/24 22:35 Pulse Ox 93 10/14/24 22:35 O2 Del Method Nasal Cannula 10/14/24 22:35 O2 Flow Rate 3 10/14/24 22:35 BMI result Body Mass Index 31.8 Const: Other: Appearance: Alert. Patient in respiratory distress unable to talk Eyes: Pupils equal, round and reactive to light. ENT: Pharynx normal. Neck: Normal inspection. Neck supple. No lymph nodes noted. No crepitus CVS: Normal heart rate and rhythm. Pulses normal. Normal S1 and S2 Respiratory: In respiratory distress, moderate to poor air movement. Oxygen saturation 96% on CPAP Abdomen: Soft and nontender. No rigidity. No distention. Skin: Skin cool to touch and dry. Normal skin color. Normal skin turgor. Extremities: No lower extremity edema. No Lacerations. No Rash Neuro: Unable to participate in cranial nerve assessment Psych: Very anxious Course Course Course Narrative: Patient already received Solu-Medrol 125 mg, 1 dose of epinephrine IM, 2 DuoNebs. Patient is now receiving more albuterol, put on CPAP and magnesium Patient is on a CPAP Empirically, patient being treated with IV fluids, Levaquin. Patient is being given fluids based on ideal weight of 43 kg, patient is obese. All of patient's labs pending Medications Administered Discontinued Medications Generic Name Dose Route Start Last Admin Trade Name Freq PRN Reason Stop Dose Admin Albuterol Sulfate 7.5 mg/ 0 mg 10/14/24 19:02 10/14/24 19:05 Albuterol/Ipratropium 3 ml INHALE 10/14/24 19:03 2.5 each ONCE ONE Administration Diazepam 2 mg 10/14/24 19:12 10/14/24 19:00 Diazepam 10 Mg/2 Ml Cartridge IM 10/14/24 19:13 2 mg STAT STA Administration Magnesium Sulfate 2 gm in 50 mls @ 25 mls/hr 10/14/24 18:57 10/14/24 21:00 Magnesium Sulfate/H2o IV 10/14/24 20:56 Infused ONCE ONE Infusion Sodium Chloride 1,500 mls @ 999 mls/hr 10/14/24 19:14 10/14/24 20:36 Ns IVCONT 10/14/24 20:44 Infused .Q1H31M ONE Infusion Levofloxacin 500 mg in 100 mls @ 100 mls/hr 10/14/24 19:14 10/14/24 20:29 Levaquin IV 10/14/24 20:13 Infused ONCE ONE Infusion Medical Decision Making Medical Decision Making MDM Narrative: My interpretation of labs: Patient's white blood cell count 18.1, which is a a bit higher than usual for the patient. Rest of hematology within normal limits, initial blood gases show pH of 7.24, pCO2 61 which is fairly close to patient's baseline, bicarb 26. Lactic acid 5.8, likely secondary to nebulization treatments versus sepsis. As mentioned above, patient has already received fluids based on ideal weight and IV antibiotics. Patient's lactic acid after IV hydration dropped to 1.8. LFTs within normal limits, troponin 30.0 which is at baseline for the patient. BNP 115, serology negative, chest x-ray: No consolidation, possible mild edema but unclear due to patient's body habitus Patient was put on CPAP, patient's venous blood gases improved. We kept the patient off CPAP for over an hour, patient is now on 3 L saturating 94%. Patient states that she feels much better. Patient is completely awake, alert and oriented and talking to us I discussed the patient with Dr. Coelho, patient being admitted Patient uses CPAP at home and she will be put back on CPAP for sleeping Differential Diagnosis Differential Diagnoses: The differential diagnosis associated with the presentation includes (Hypercapnic respiratory failure, COPD, pneumonia, viral URI) Admission/Observation Consideration of admission/observation: Escalation of care including admission/observation considered Consult Healthcare Provider Management of the patient was discussed with: Hospitalist Lab Data [facility] Lab Attestation statement: I reviewed the patient's lab results. 10/14/24 19:00 04/16/25 19:00 Labs: Lab Results 10/14/24 10/14/24 10/14/24 Range/Units 19:00 19:03 21:20 WBC 18.1 H (4.8-10.8) X10*3/uL RBC 5.19 (4.20-5.50) X10*6/uL Hgb 11.8 L (12.0-16.0) g/dl Hct 40.4 (37.0-47.0) % MCV 77.8 L (80.0-98.0) fL MCH 22.7 L (27.0-33.0) pg MCHC 29.2 L (31.0-35.0) g/dl RDW 19.3 H (11.0-16.0) % Plt Count 377 D (160-400) X10*3/uL MPV 9.3 L (9.4-12.3) fL Immature Gran % (Auto) 0.4 (0.0-0.4) % Neut % (Auto) 51.4 (45-73) % Lymph % (Auto) 37.6 (20-40) % Blount % (Auto) 8.4 (2-11) % Eos % (Auto) 1.8 (0-4) % Baso % (Auto) 0.4 (0-2) % Lymph # (Auto) 6.8 H (1.2-4.9) X10*3/uL Blount # (Auto) 1.5 H (0.1-1.2) X10*3/uL Eos # (Auto) 0.3 (0.0-0.4) X10*3/uL Baso # (Auto) 0.1 (0.0-0.2) X10*3/uL Abs Immat Gran (auto) 0.07 H (0.00-0.03) X10*3/uL Absolute Neuts (auto) 9.3 H (2.0-8.3) x10*3/uL Absolute Nucleated RBC 0.000 (0.0-0.012) X10*3/uL Nucleated RBC % (auto) 0.0 (0.0-0.2) /100WBC Smear Tech's Comments VERIFIED Hold Blue Top SEE NOTE VBG pH 7.24 L (7.32-7.43) VBG pCO2 61 mmHg VBG pO2 42 mmHg VBG HCO3 26 (22-26) mmol/L VBG O2 Saturation 62.0 % VBG Base Excess -1.9 mmol/L Sodium 143 (135-145) mmol/L Potassium 4.5 (3.3-5.1) mmol/L Chloride 106 (96-108) mmol/L Carbon Dioxide 23 (22-29) mmol/L Anion Gap 19 (12-20) BUN 15 (9-16) mg/dL Creatinine 0.89 (0.5-1.4) mg/dL Estim Creat Clear Calc TNP Estimated GFR > 60 Random Glucose 144 H (60-115) mg/dL Lactic Acid 5.2 H* (0.5-2.0) mmol/L Lactic Acid F/U @ 2Hr 1.8 (0.5-2.0) mmol/L Calcium 9.2 (8.4-10.2) mg/dL Total Bilirubin 0.2 (0.0-1.0) mg/dL Direct Bilirubin < 0.2 (0.0-0.5) mg/dL AST 18 (5-31) U/L ALT 19 (0-31) U/L Alkaline Phosphatase 105 (39-117) U/L Troponin I High Sens 30.0 H (<3.5-17.0) ng/L B-Natriuretic Peptide 115 H (<100) pg/mL Total Protein 7.0 (6.5-8.0) g/dL Albumin 4.2 (3.5-5.0) g/dL Influenza Type A (PCR) NEGATIVE (Negative) Influenza Type B (PCR) NEGATIVE (Negative) RSV RNA Qual (PCR) NEGATIVE (Negative) SARS-CoV-2 RNA (RT-PCR) NEGATIVE (Negative) 10/14/24 Range/Units 21:25 WBC (4.8-10.8) X10*3/uL RBC (4.20-5.50) X10*6/uL Hgb (12.0-16.0) g/dl Hct (37.0-47.0) % MCV (80.0-98.0) fL MCH (27.0-33.0) pg MCHC (31.0-35.0) g/dl RDW (11.0-16.0) % Plt Count (160-400) X10*3/uL MPV (9.4-12.3) fL Immature Gran % (Auto) (0.0-0.4) % Neut % (Auto) (45-73) % Lymph % (Auto) (20-40) % Blount % (Auto) (2-11) % Eos % (Auto) (0-4) % Baso % (Auto) (0-2) % Lymph # (Auto) (1.2-4.9) X10*3/uL [place] # (Auto) (0.1-1.2) X10*3/uL Eos # (Auto) (0.0-0.4) X10*3/uL Baso # (Auto) (0.0-0.2) X10*3/uL Abs Immat Gran (auto) (0.00-0.03) X10*3/uL Absolute Neuts (auto) (2.0-8.3) x10*3/uL Absolute Nucleated RBC (0.0-0.012) X10*3/uL Nucleated RBC % (auto) (0.0-0.2) /100WBC Smear Tech's Comments Hold Blue Top VBG pH 7.32 (7.32-7.43) VBG pCO2 52 mmHg VBG pO2 47 mmHg VBG HCO3 27 H (22-26) mmol/L VBG O2 Saturation 74.0 % VBG Base Excess 0.3 mmol/L Sodium (135-145) mmol/L Potassium (3.3-5.1) mmol/L Chloride (96-108) mmol/L Carbon Dioxide (22-29) mmol/L Anion Gap (12-20) BUN (9-16) mg/dL Creatinine (0.5-1.4) mg/dL Estim Creat Clear Calc Estimated GFR Random Glucose (60-115) mg/dL Lactic Acid (0.5-2.0) mmol/L Lactic Acid F/U @ 2Hr (0.5-2.0) mmol/L Calcium (8.4-10.2) mg/dL Total Bilirubin (0.0-1.0) mg/dL Direct Bilirubin (0.0-0.5) mg/dL AST (5-31) U/L ALT (0-31) U/L Alkaline Phosphatase (39-117) U/L Troponin I High Sens (<3.5-17.0) ng/L B-Natriuretic Peptide (<100) pg/mL Total Protein (6.5-8.0) g/dL Albumin (3.5-5.0) g/dL Influenza Type A (PCR) (Negative) Influenza Type B (PCR) (Negative) RSV RNA Qual (PCR) (Negative) SARS-CoV-2 RNA (RT-PCR) (Negative) Independent Interpretation I performed an independent interpretation of an: EKG and Plain X-Ray Interpretation: Sinus tachycardia, heart rate 126, occasional PVCs, no ST segment depression or elevation no T-wave inversion, QTC 431 Radiology Impression Discussion of test interpretation with radiology: I have reviewed the radiologist's reading. Radiologist Impression: Body habitus limits the study. The heart is enlarged. No definite consolidation or pleural effusion is seen. Impression: No definite consolidation. There is mild interstitial thickening in the lungs that could be artifactual although mild edema is technically a possibility. Independent Historian Clinical information obtained from an independent historian. History obtained from or confirmed by: EMS Critical Care Time Critical Care Time Critical Care Time: Yes Total Critical Care Time: 75 Attestation: I have personally provided critical care time. Time includes review of lab data, radiology results, discussion with consultants, and monitoring for potential decompensation. Intervention performed as documented. Discharge Plan Discharge Clinical Impression: Acute exacerbation of chronic obstructive pulmonary disease Patient Disposition: Admitted As Inpatient Prescriptions: No Action (DME) lancets [FreeStyle Lancets] 28 gauge misc See Rx Instructions .ROUTE .MEDSUPPLY Qty: 100 1RF Rx Instructions: Use to check blood sugar daily or if symptomatic hypo/hypergylcemia (DME) 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 meter [FreeStyle Lite Meter] Kit See Rx Instructions .ROUTE .MEDSUPPLY Qty: 1 0RF Rx Instructions: Use to check blood sugar daily or if symptomatic for hypo/hyperglycemia (DME) FreeStyle Lite Strips Strip See Rx Instructions .ROUTE .MEDSUPPLY Qty: 100 1RF Rx Instructions: Use to check blood sugar daily or if symptomatic hypo/hypergylcemia furosemide 20 mg tablet 20 mg PO DAILY Qty: 90 3RF aspirin 81 mg tablet,delayed release (DR/EC) 81 mg PO DAILY 90 Days Qty: 90 1RF theophylline 400 mg tablet extended release 24 hr 400 mg PO BID 90 Days Qty: 180 4RF albuterol sulfate [Ventolin HFA] 90 mcg/actuation HFA aerosol inhaler 2 puff inhalation Q6H PRN (Reason: for wheezing) Qty: 1 6RF glipizide 5 mg tablet 5 mg PO DAILY Qty: 90 1RF (DME) cane Device See Rx Instructions .Route Qty: 1 0RF Rx Instructions: Standard cane (DME) Rollator walker See Rx Instructions .Route .MEDSUPPLY Qty: 1 0RF Rx Instructions: As directed (DME) pulse oximeter See Rx Instructions .Route .MEDSUPPLY Qty: 1 0RF Rx Instructions: As directed fexofenadine [Elisabeth Allergy] 180 mg tablet 180 mg PO DAILY Qty: 30 3RF glucose 4 gram tablet,chewable 16 g PO Q15M MDD 8 tabs PRN (Reason: hypoglycemia) Qty: 100 1RF Rx Instructions: until symptoms of low blood sugar are controlled (DME) FreeStyle Jemima 3 Plus Sensor Device See Rx Instructions .Route Qty: 2 5RF Rx Instructions: To monitor blood sugars 4 times per day. Change sensor every 15 days (DME) FreeStyle Jemima 3 [place] Misc See Rx Instructions .Route Qty: 1 0RF Rx Instructions: To monitor blood sugar 4 times per day tizanidine 4 mg tablet 4 mg PO Q12H PRN (Reason: muscle spasm) 30 Days Qty: 60 0RF Rx Instructions: do not take concurrently with famotidine ibuprofen 800 mg tablet 800 mg PO BID PRN (Reason: Headache) 30 Days Qty: 60 0RF Rx Instructions: please use sparingly due to diabetes acetaminophen 650 mg tablet extended release 650 mg PO Q12H PRN (Reason: pain) 30 Days Qty: 60 0RF gabapentin 800 mg tablet 800 mg PO QID 30 Days Qty: 120 0RF sertraline 100 mg tablet 150 mg PO DAILY 90 Days Qty: 135 0RF atorvastatin 20 mg tablet 20 mg PO BEDTIME 90 Days Qty: 90 0RF calcium carbonate-vitamin D3 500 mg-10 mcg (400 unit) tablet 1 tab PO DAILY albuterol sulfate 2.5 mg /3 mL (0.083 %) solution for nebulization 2.5 mg inhalation Q4H PRN (Reason: Shortness Of Breath/Wheezing) (DME) mary anne Marrufo See Rx Instructions .Route Qty: 1 0RF Rx Instructions: As directed losartan 50 mg tablet 50 mg PO DAILY topiramate 25 mg tablet 25 mg PO BID Qty: 60 0RF ipratropium-albuterol 0.5 mg-3 mg(2.5 mg base)/3 mL solution for nebulization 3 ml INHALATION TID Stiolto Respimat 2.5-2.5 mcg/actuation mist 2 puff INHALATION DAILY prednisone 20 mg tablet 40 mg PO DAILY Qty: 10 0RF nicotine 21 mg/24 hr patch 24 hour 1 patch transdermal Q24H Qty: 28 0RF cefuroxime axetil 500 mg tablet 500 mg PO BID Qty: 10 0RF tramadol 50 mg tablet 50 mg PO Q6H PRN (Reason: pain) Qty: 20 0RF esomeprazole magnesium 40 mg capsule,delayed release(DR/EC) 40 mg PO DAILY Qty: 30 3RF Print Language: Irish
[2024-10-14] MEDS: diazePAM 10 MG/2 ML CARTRIDGE 2 MG IM (19:00)
[2024-10-14] MEDS: Magnesium Sulfate/H2O 2 GM/50 ML PIGGYBACK IV (19:00)
[2024-10-14 19:05] LABS: Venous Blood Gas Refer to POC result
[2024-10-14] MEDS: Albuterol Sulfate 7.5 MG, Albuterol/Iprat 2.5/0.5MG 3 ML 3 ML INHALE (19:05)
[2024-10-14 19:06] LABS: VBG Base Excess -1.9 mmol/L; VBG HCO3 26 mmol/L (22-26); VBG pCO2 61 mmHg; VBG pH 7.24 (7.32-7.43); VBG pO2 42 mmHg
[2024-10-14 19:08] LABS: Basophils Absolute Auto 0.1 X10*3/uL (0.0-0.2); Basophils Percent Auto 0.4 % (0-2); Eosinophils Absolute Auto 0.3 X10*3/uL (0.0-0.4); Eosinophils Percent Auto 1.8 % (0-4); Hematocrit 40.4 % (37.0-47.0); Hemoglobin 11.8 g/dl (12.0-16.0); Imm Gran Abs Auto 0.07 X10*3/uL (0.00-0.03); Imm Gran Pct Auto 0.4 % (0.0-0.4); Lymphocytes Percent Auto 37.6 % (20-40); MANUAL DIFF FLAG SCAN; Mean Corpuscular HGB Conc 29.2 g/dl (31.0-35.0); Mean Corpuscular Hemoglobin 22.7 pg (27.0-33.0); Mean Corpuscular Volume 77.8 fL (80.0-98.0); Mean Platelet Volume 9.3 fL (9.4-12.3); Monocytes Absolute Auto 1.5 X10*3/uL (0.1-1.2); Monocytes Percent Auto 8.4 % (2-11); Neutrophils Absolute Auto 9.3 x10*3/uL (2.0-8.3); Neutrophils Percent Auto 51.4 % (45-73); Platelet Count 377 X10*3/uL (160-400); Red Blood Count 5.19 X10*6/uL (4.20-5.50); Red Cell Distribution Width 19.3 % (11.0-16.0); SCAN SMEAR FLAG 1; White Blood Count 18.1 X10*3/uL (4.8-10.8)
[2024-10-14 19:17] LABS: Lymphocytes Absolute Auto 6.8 X10*3/uL (1.2-4.9)
[2024-10-14] MEDS: 0.9 % Sodium Chloride 1,500 ML 999 ML IVCONT (19:23)
[2024-10-14 19:25] LABS: Alanine Aminotransferase 19 U/L (0-31); Albumin Level 4.2 g/dL (3.5-5.0); Alkaline Phosphatase 105 U/L (39-117); Anion Gap 19 (12-20); Aspartate Amino Transferase 18 U/L (5-31); Bilirubin Direct < 0.2 mg/dL (0.0-0.5); Bilirubin Total 0.2 mg/dL (0.0-1.0); Blood Urea Nitrogen 15 mg/dL (9-16); Calcium 9.2 mg/dL (8.4-10.2); Carbon Dioxide 23 mmol/L (22-29); Chloride 106 mmol/L (96-108); Estimated Glomerular Filt Rate > 60; Glucose Random 144 mg/dL (60-115); Potassium 4.5 mmol/L (3.3-5.1); Sodium 143 mmol/L (135-145)
[2024-10-14] MEDS: levoFLOXacin/D5W 500 MG/100 ML PIGGYBACK 100 MG IV (19:29)
[2024-10-14 19:30] LABS: B Type Natriuretic Peptide 115 pg/mL (<100)
[2024-10-14 19:34] LABS: Lactic Acid 5.2 mmol/L (0.5-2.0)
[2024-10-14 19:46] LABS: Influenza A PCR NEGATIVE (Negative); Influenza B PCR NEGATIVE (Negative); Resp Syncy Virus RNA Qual PCR NEGATIVE (Negative); SARS COV2 PCR INHOUSE NEGATIVE (Negative)
[2024-10-14 20:08] LABS: SLIDE REVIEW VERIFIED
[2024-10-14 21:04] LABS: Reflex Lactate? Lactic Acid Added
[2024-10-14 21:34] LABS: Venous Blood Gas Refer to POC result
--- NOTE | 2024-10-14 21:34 | PC.NURSE ---
pt taken off bipap and placed onto 3L NC by MD hollis at 21:10
[2024-10-14 21:35] LABS: VBG Base Excess 0.3 mmol/L; VBG HCO3 27 mmol/L (22-26); VBG pCO2 52 mmHg; VBG pH 7.32 (7.32-7.43); VBG pO2 47 mmHg
[2024-10-14 21:51] LABS: ~Lactic Acid-LAB USE ONLY 1.8 mmol/L (0.5-2.0)
--- NOTE | 2024-10-14 23:45 | PM.IMHP ---
History of Present Illness Date of Service: 10/14/24 Attending physician on admission: Maureen Coelho Chief Complaint: Dyspnea Patient is a 54-year-old female with past medical history of [id number] diabetes, HENRY, hypertension, hyperlipidemia, COPD/emphysema with current nicotine use 1 pack per day of cigarettes, cocaine abuse, obesity, GERD, Bustos's esophagus follow, UTI with history of sling for her bladder, hernia and history of hernia surgeries with mesh presents to the emergency room after patient called 911 sudden onset severe shortness of breath when patient was using the bathroom. Patient's sister had been visiting and was asked to leave by the patient prior to the new onset dyspnea that occurred. Patient's sister had called [address] out[address] Patient reports mild chills with suspected fever although she did not check her temperature. Patient reported a burning sensation in her chest that did not radiate. Patient described a nonproductive cough. Patient states she used crack cocaine 5 days ago. Patient has been smoking 1 pack per day every day. Patient was seen by Dr. Kessler back in May of 2024 and it was recommended she change her CPAP at night for HENRY to BiPAP 06/04 and patient has been noncompliant with this practice and has not been using noninvasive ventilation at nighttime. Patient states she did not run out of oxygen at home but uses regularly. All viral studies were negative. Chest x-ray negative for definitive consolidation. Mild interstitial thickening considered artificial versus mild edema. In addition patient's BNP is elevated, cardiomegaly seen on chest x-ray and RVH noted on EKG. Patient is tachycardic secondary to hypoxia. Echo is ordered. Patient is not normally following with Cardiology so consult likely needed. Troponins are flat at 23 and 30. Patient currently does not have any chest pain and is satting 94% on 3 L nasal cannula but continues to have increased work with breathing, R 20. In the emergency department patient received 125 mg of Solu-Medrol IV, 2 g of magnesium, epinephrine and has overall improved as she is no longer dependent on BiPAP and can be admitted to the medical-surgical floor. Patient has been advised that BiPAP has been ordered / to assist patient with her overall breathing issues including sleep apnea. Patient being admitted for COPD exacerbation. Patient has a leukocytosis of 18. Lactic acid was 5.2 is now down to 1.8 likely due to the hypoxia. Patient received IV fluids. We will start patient on azithromycin. Patient does meet the criteria for sepsis due to leukocytosis, elevated lactic acid, hypoxia. Review of Systems Review of Systems: Patient currently denies any chest pain, abdominal pain, nausea, vomiting but reports shortness of breath at rest with continued work of breathing, respirations 20 and pulse ox 94% on 3 L nasal cannula. Patient denies any headache visual changes, lower calf pain and unusual edema in the lower extremities. Patient reports that earlier she felt she had fever and chills. Yes all other systems are reviewed and are negative [facility] Medical History (Updated 10/15/24 @ 00:16 by KATINA Dennison) HENRY (obstructive sleep apnea) Acute exacerbation of chronic obstructive airways disease Asthma with exacerbation Obesity hypoventilation syndrome COPD (chronic obstructive pulmonary disease) Cocaine use disorder Chronic lung disease Hypoxic respiratory failure Nocturnal hypoxemia Diabetes mellitus COPD exacerbation Crack cocaine use Hyperkalemia Metabolic acidosis Leukocytosis Chest discomfort Chronic renal failure, stage 2 (mild) SOB (shortness of breath) Asthma Smoker Rotator cuff tendonitis GERD (gastroesophageal reflux disease) Chronic idiopathic constipation Bustos's esophagus Depression High triglycerides Gastroparesis Carpal tunnel syndrome of right wrist Nausea & vomiting Hernia Acute and chronic respiratory failure, unspecified whether with hypoxia or hypercapnia HTN (hypertension) Obesity (BMI 30-39.9) Knee pain, bilateral Functional capacity: independent ambulation Patient : No Family History Father Heart disease HENRY (obstructive sleep apnea) Family history of breast cancer Mother Asthma Emphysema, unspecified Bronchitis Smoker Alcoholism Bone marrow disease Maternal Grandmother Diabetes Surgical History History of cholecystectomy (~1988) History of carpal tunnel release Hx of tubal ligation History of pubovaginal sling (~2015) History of umbilical hernia repair (~2001) Hx of section History of open reduction and internal fixation (ORIF) procedure History of esophagogastroduodenoscopy (EGD) Social History Household Members: Family and Other Household Members Other:: sister Housing: House Are you a primary acute care nurse to a significant other at home: No Do you presently have visiting nurse or other home services: Yes (vna) Unable to assess alcohol history related to: Unknown Alcohol intake: former Comment: Sleeping Patient Tobacco Use Status: Current everyday Tobacco user Tobacco use type: Cigarette Cigarette Packs Per Day: 1 Cigarettes Per Day: 1 Years Smoked: 48 e-Cigarette/Vaping Use: Currently Using Second Hand Smoke Exposure: No Use of substances other than those prescribed or required for medical reasons: Unknown Substance Use Type: Crack/Cocaine Advance Directives: Yes Advance Directives on File: Yes Advance Directives Date on File: 12/19/23 Do you have a plan to hurt others: No Plan Nutrition Risks: No Nutritional Risk Patient : No service: No Current occupational status: disabled 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 Ebola Risk: Travel/Contact With Anyone From Affected Area/s: No Has Patient Experienced Ebola Symptoms: No Meds Allergies Allergy/AdvReac Type Severity Reaction Status Date / Time doxycycline Allergy Severe Swelling Verified 10/14/24 19:41 varenicline [From CHANTIX] Allergy Severe ANAPHYLAXIS Verified 10/14/24 19:41 azithromycin Allergy Intermediate Rash Verified 10/14/24 19:41 barium sulfate Allergy Intermediate angioedema Verified 10/14/24 19:41 cetirizine Allergy Mild Rash Verified 10/14/24 19:41 famotidine Allergy Mild Rash Verified 10/14/24 19:41 linaclotide [Linzess] Allergy Mild Rash Verified 10/14/24 19:41 Active Medications: Current Medications Acetaminophen (Acetaminophen 325 Mg Tablet) 650 mg PO Q6H PRN PRN Reason: Pain, Mild 1-3,fever,headache Albuterol/Ipratropium (Albuterol/Iprat 2.5/0.5mg 3 Ml Ampul.Neb) 3 ml INHALE Q4H PRN PRN Reason: Shortness of Breath/Wheezing Budesonide (Budesonide 0.5 Mg/2 Ml Ampul.Neb) 0.5 mg INHALE RBID [place] Calcium Carbonate (Calcium Carbonate 750 Mg Tab.Chew) 750 mg PO Q4H PRN PRN Reason: Heartburn Dextrose (Dextrose 50 % 25 Gm/50 Ml Syringe) 25 gm IVPUSH Q15M PRN; Protocol PRN Reason: per Hypoglycemia Standing Ord. Enoxaparin Sodium (Enoxaparin Sodium 40 Mg/0.4 Ml Syringe) 40 mg SUBCUT BEDTIME [place] Glucose (Glucose Gel 15 Gm Gel..Gram.) 15 gm PO Q15M PRN; Protocol PRN Reason: per Hypoglycemia Standing Ord. Lactated Ringer's (Lr) 500 mls @ 100 mls/hr IV .Q5H [facility] Stop: 10/15/24 04:44 Insulin Human Lispro (Insulin Lispro 100 Unit/Ml 3 Ml Vial) 0 unit SUBCUT QIDACHS [place]; Protocol Magnesium Hydroxide (Milk Of Magnesia 30 Ml Oral.Susp) 30 ml PO DAILY PRN PRN Reason: Constipation Melatonin (Melatonin 3 Mg Tablet) 6 mg PO BEDTIME PRN PRN Reason: Insomnia Methylprednisolone Sodium Succinate (Methylprednisolone Sod Succ 40 Mg/Ml Vial) 60 mg IVPUSH Q12H [facility] Nicotine (Nicotine 21 Mg Patch.Td24) 21 mg TRANSDERMA DAILY [facility] Ondansetron HCl (Ondansetron Hcl 4 Mg/2 Ml Vial) 4 mg IVPUSH Q8H PRN PRN Reason: Nausea and Vomiting Senna (Sennosides 8.6 Mg Tablet) 17.2 mg PO BEDTIME [facility] Sodium Chloride (0.9 % Sodium Chloride Flush 3 Ml Syringe) 3 ml IVFLUSH QSHIFT [facility] Home Medications ?Medication ?Instructions ?Recorded ?Confirmed ?Last Taken ?Type calcium 500 mg (as 1 tab PO DAILY 06/26/24 09/30/24 09/27/24 History carbonate)-vitamin D3 10 mcg (400 unit) tablet albuterol sulfate 2.5 mg/3 mL 2.5 mg inhalation Q4H PRN 07/13/24 09/30/24 Unknown History (0.083 %) solution for nebulization Shortness Of Breath/Wheezing losartan 50 mg tablet 50 mg PO DAILY 07/17/24 09/30/24 09/27/24 History ipratropium 0.5 mg-albuterol 3 mg 3 ml inhalation TID 09/30/24 09/30/24 09/27/24 History (2.5 mg base)/3 mL nebulization soln tiotropium 2.5 mcg-olodaterol 2.5 2 puff inhalation DAILY 09/30/24 09/30/24 09/27/24 History mcg/actuation mist for inhalation (Stiolto Respimat) Physical Exam Vital Signs and Narrative: Vital Signs: Last Vital Signs Temp 97.9 F 10/14/24 22:35 Pulse 114 H 10/14/24 22:35 Resp 20 10/14/24 22:35 BP 150/83 H 10/14/24 22:35 Pulse Ox 93 10/14/24 22:35 O2 Del Method Nasal Cannula 10/14/24 22:35 O2 Flow Rate 3 10/14/24 22:35 BMI result Body Mass Index 31.8 Alert and orientated X3, able to give good history. Neuro: CN II-X11 intact, no deficits, visual acuity intact EYES: PERRLA, EOM intact ENT: hearing intact, dentition in good repair, uvula midline, lips moist, nares patent no epistaxis Cardiac: S1 S2 tachy 116, no murmur, no JVD, no edema in Lower ext Pulmonary: lungs B wheeze througout Abdominal: BS active in all 4 quadrants, no guarding, tenderness, rebounding MSK: strength 4/5 upper and lower extremities : no CVA tenderness no bladder distension Extremities: no edema in lower extremities, PT and DP pulses palpable +2 Psych: mood stable, judgement and insight good SKin: no open wounds, bruising noted at CGM site under upper right arm Results Labs 10/14/24 19:00 10/14/24 19:00 Labs: Laboratory Results - last 24 hr 10/14/24 10/14/24 10/14/24 19:00 19:03 21:20 MCV 77.8 L MCH 22.7 L MCHC 29.2 L RDW 19.3 H Plt Count 377 D MPV 9.3 L Immature Gran % (Auto) 0.4 Neut % (Auto) 51.4 Lymph % (Auto) 37.6 Moffat % (Auto) 8.4 Eos % (Auto) 1.8 Baso % (Auto) 0.4 Lymph # (Auto) 6.8 H Moffat # (Auto) 1.5 H Eos # (Auto) 0.3 Baso # (Auto) 0.1 Abs Immat Gran (auto) 0.07 H Absolute Neuts (auto) 9.3 H Absolute Nucleated RBC 0.000 Nucleated RBC % (auto) 0.0 Smear Tech's Comments VERIFIED Hold Blue Top SEE NOTE VBG pH 7.24 L VBG pCO2 61 VBG pO2 42 VBG HCO3 26 VBG O2 Saturation 62.0 VBG Base Excess -1.9 Anion Gap 19 Estim Creat Clear Calc TNP Estimated GFR > 60 Random Glucose 144 H Lactic Acid 5.2 H* Lactic Acid F/U @ 2Hr 1.8 Calcium 9.2 Total Bilirubin 0.2 Direct Bilirubin < 0.2 AST 18 ALT 19 Alkaline Phosphatase 105 B-Natriuretic Peptide 115 H Total Protein 7.0 Albumin 4.2 Influenza Type A (PCR) NEGATIVE Influenza Type B (PCR) NEGATIVE RSV RNA Qual (PCR) NEGATIVE SARS-CoV-2 RNA (RT-PCR) NEGATIVE 10/14/24 21:25 MCV MCH MCHC RDW Plt Count MPV Immature Gran % (Auto) Neut % (Auto) Lymph % (Auto) Moffat % (Auto) Eos % (Auto) Baso % (Auto) Lymph # (Auto) Moffat # (Auto) Eos # (Auto) Baso # (Auto) Abs Immat Gran (auto) Absolute Neuts (auto) Absolute Nucleated RBC Nucleated RBC % (auto) Smear Tech's Comments Hold Blue Top VBG pH 7.32 VBG pCO2 52 VBG pO2 47 VBG HCO3 27 H VBG O2 Saturation 74.0 VBG Base Excess 0.3 Anion Gap Estim Creat Clear Calc Estimated GFR Random Glucose Lactic Acid Lactic Acid F/U @ 2Hr Calcium Total Bilirubin Direct Bilirubin AST ALT Alkaline Phosphatase B-Natriuretic Peptide Total Protein Albumin Influenza Type A (PCR) Influenza Type B (PCR) RSV RNA Qual (PCR) SARS-CoV-2 RNA (RT-PCR) ECG Attestation: I personally reviewed and interpreted this ECG as follows: (Sinus tachycardia with occasional Premature ventricular complexes Possible Left atrial enlargement Possible Right ventricular hypertrophy Possible Lateral infarct , age undetermined Inferior infarct ) Prior ECG tracings: available for review Imaging Radiologist's Impressions: CXR Findings: Body habitus limits the study. The heart is enlarged. No definite consolidation or pleural effusion is seen. Impression: No definite consolidation. There is mild interstitial thickening in the lungs that could be artifactual although mild edema is technically a possibility. Assessment and Plan (1) Sepsis: Qualifiers: Sepsis acute organ dysfunction status: unspecified Sepsis type: sepsis due to unspecified organism Qualified Code(s): A41.9 - Sepsis, unspecified organism Status: Acute (2) Acute hypoxic respiratory failure: Status: Acute (3) Acute exacerbation of chronic obstructive pulmonary disease: Status: Acute (4) Elevated brain natriuretic peptide (BNP) level: Status: Acute (5) HENRY (obstructive sleep apnea): Status: Acute (6) Non-insulin dependent type 2 diabetes mellitus: Status: Acute (7) Cocaine abuse: Status: Acute (8) Constipation: Qualifiers: Constipation type: slow transit constipation Qualified Code(s): K59.01 - Slow transit constipation Status: Acute (9) Tobacco abuse: Status: Acute (10) GERD (gastroesophageal reflux disease): Status: Acute Plan ally is a 54-year-old female with past medical history of [id number]-ebdnwicab diabetes, HENRY, hypertension, hyperlipidemia, COPD/emphysema with current nicotine use 1 pack per day of cigarettes, cocaine abuse, obesity, GERD, Bustos's esophagus follow, UTI with history of sling for her bladder, hernia and history of hernia surgeries with mesh seen in the emergency department for sudden onset shortness of breath. Patient being admitted for sepsis secondary to acute hypoxic respiratory failure and COPD exacerbation with noted leukocytosis, lactic acidosis currently resolved and hypoxia. Sespsi/Acute hypoxic respiratory failure/Acute COPD exacerbation/ Tobacco abuse LA 5.2 has trended down to 1.8, providing one bolus of fluid and tylenol for tachcardia BCX2 pending Patient able to transition from BiPAP to nasal cannula with decreased overall work of breathing. Patient will continue HS BiPAP 12/5 for HENRY as recommended by Dr. Kessler during last pulmonary outpatient visit. Patient has been noncompliant with BiPAP at night at home. Patient does use oxygen at home and has not run out. Solu-Medrol 125 x 1 in the ED, patient will continue 60 mg of Solu-Medrol b.i.d. due to her level of wheezing and work of breathing Patient also received 2 g of magnesium in the ED Nasal cannula when awake, wean as tolerated Duo nebs p.r.n. and budesonide scheduled Ceftriaxone 1GM QD ordered empirically (pt unable to take doxycyline or azithromycin due to allergy) Pulmonary consult as needed Incentive spirometer/ pulmonary toileting Nicotine patch ordered Elevated BNP 115, CM, RVH on ECG Echocardiogram ordered Lasix 20 IV x1, patient tolerated Cardiology consult if indicated HENRY Patient will resume HS BiPAP 12/[address] Kessler, patient's telephone interviewer Patient has been noncompliant with BiPAP at home, education provided Rtk-nrpgxwx-zkedklsjt type 2 diabetes Sliding scale insulin Diabetic diet Cocaine abuse Last use 5 days prior, patient counseled Patient deferred need to speak with addictions Constipation Patient having issues with straining and moving bowels regularly. Added MiraLax daily and senna at night. Dulcolax suppository as needed GERD/ Dysphagia with known BArretts esopahgus PPI ordered Speech therapy evaluation for swallowing ordered DVT prophylaxis: Lovenox PPI prophylaxis: Protonix Med rec pending Patient requires inpatient hospitalization due to acute hypoxic respiratory failure, COPD exacerbation and evidence of sepsis with elevated lactic acid 5.2, tachycardia and hypoxia. Patient requires close monitoring as patient is high risk for clinical decline. Total time managing care of this patient today: 45 minutes. Quality Stroke Does the patient have a stroke diagnosis?: No Reason for No Anti-thrombotic by Day Two: N/A - Med Ordered VTE Prior VTE?: No VTE Risk Level:: Medical - moderate - high VTE Device Contraindication: N/A - Device Ordered VTE Drug Contraindication: Treatment Not Tolerated
[2024-10-14] MEDS: Nicotine 21 MG PATCH.TD24 TRANSDERMA (23:53)
[2024-10-14] MEDS: Furosemide 20 MG/2 ML VIAL IVPUSH (23:53)
[2024-10-14] MEDS: Enoxaparin Sodium 40 MG/0.4 ML SYRINGE SUBCUT (23:54)
[2024-10-14] MEDS: Budesonide 0.5 MG/2 ML AMPUL.NEB INHALE (23:59)
[2024-10-15] VITALS: PULSE 113; RESP 22; O2SAT 95
[2024-10-15] MEDS: Lactated Ringers 500 ML 100 ML IV (00:02)
[2024-10-15] MEDS: 0.9 % Sodium Chloride Flush 3 ML SYRINGE IVFLUSH ×2 (00:03→12:29)
[2024-10-15 00:32] LABS: Magnesium 1.9 mg/dL (1.6-2.6)
[2024-10-15] MEDS: cefTRIAXone sodium 1 GM VIAL IVPUSH (00:34)
[2024-10-15] MEDS: methylPREDNISolone Sod Succ 125 MG/2 ML VIAL 60 MG IV ×2 (00:34→12:27)
[2024-10-15 00:46] LABS: Free T4 (Free Thyroxine) 1.01 ng/dL (0.71-1.85); Thyroid Stimulating Hormone 1.83 uIU/mL (0.32-4.0)
[2024-10-15 02:40] VITALS: BMI 35.2
[2024-10-15 04:00] VITALS: BP 165/89; PULSE 109; RESP 18; TEMP 36.4; O2SAT 92
[2024-10-15] MEDS: Pantoprazole Sodium 40 MG/10 ML VIAL IVPUSH (04:06)
[2024-10-15] MEDS: traMADoL HCL 50 MG TABLET PO (04:22)
[2024-10-15] MEDS: Albuterol/Iprat 2.5/0.5MG 3 ML AMPUL.NEB INHALE ×2 (04:27→12:51)
[2024-10-15 04:29] VITALS: PULSE 109; RESP 18; O2SAT 93
--- NOTE | 2024-10-15 07:00 | CA_ITS ---
Transthoracic Echocardiogram Patient (Last, First, Middle): Marika Scott L Gender: Female Date of : 1970 Age: 54 Procedure Date: 10/15/2024 Procedure Type: Transthoracic Echocardiogram [place] [facility] [place] Height: 149.86 cm Weight: 78.93 kg BSA: 1.74 m2 Heart Rate: 95 bpm BP: 165 / 89 mmHg Vehicle Dynamics Engineer: MICHAEL Referring MD: Mariana Santa [facility]- Nurse Outreach Case Manager: Ignacio Cintron MD Symptoms: elevated BNP, CM and LVH on ECG Study Quality: Technically Difficult ECG Rhythm: Sinus Conclusions: - 1. Mildly to moderately reduced LV ejection fraction 40-45% with regional wall motion abnormality consistent with stress induced cardiomyopathy 2. Limited visualization of cardiac valves with cardiac valvular Dopplers within normal limits 3. Normal calculated RV systolic pressure Findings Procedure Information Contrast agent, definity, is being given per protocol without apparent complications. Left Ventricle Normal left ventricular cavity size. There is normal left ventricular wall thickness. The left ventricular systolic function is mild to moderately decreased. The visually estimated ejection fraction is between 40-45%. Spectral Doppler is indicative of an impaired relaxation filling pattern. Apical and mid ventricular wall motion abnormality most consistent with stress-induced cardiomyopathy Wall Motion Rest Echo Findings The mid anterior, mid inferior, mid anterolateral, mid inferoseptal, mid anteroseptal, and mid inferolateral segments are hypokinetic. The entire apex is akinetic. All other scored wall segments showed normal motion. Right Ventricle Mildly increased right ventricular cavity size. There is borderline right ventricular systolic function. Atria The left atrium is normal in size. Interatrial shunt cannot be excluded. The right atrium was not well visualized. Aortic Valve The aortic valve was not well visualized. There is no aortic valve stenosis. There is no aortic valve regurgitation. Mitral Valve Likely normal mitral valve structure and function. There is trace mitral valve regurgitation. There is no mitral valve stenosis. Pulmonic Valve The pulmonic valve was not well visualized. Tricuspid Valve Likely normal tricuspid valve structure and function. There is trace tricuspid valve regurgitation. The right ventricular systolic pressure is normal. The right ventricular systolic pressure is 19 mmHg. Normal right atrial pressure. There is no evidence of pulmonary hypertension. Great Vessels All visible segments of the aorta are normal in size. The pulmonary artery was not well visualized. There is no dilatation of the ascending aorta measuring 3.20 cm. Venous The inferior vena cava is normal in size and collapses greater than 50% with inspiration. Pericardium/Pleural The pericardium was not well visualized. Measurements 2D Linear Measurements IVSd: 0.99 0.6-0.9/0.6-1.0 cm LVIDd: 5.28 3.9-5.3/4.2-5.9 cm LVIDd Index: 3.03 2.4-3.2/2.2-3.1 cm/m2 LVIDs: 3.55 2.0-3.6 cm LVPWd: 0.92 0.7-1.1 cm LA Diam: 3.50 2.7-3.8/3.0-4.0 cm LAIDs Index: 2.01 1.5-2.3 cm/m2 LV Mass: 232.83 67-162/88-224 g LV Mass Index: 133.81 43-95/49-115 g/m2 LVOT Diam: 2.20 3.0+(-)1.3 cm 2D Systolic Function EF 4C: 47.60 >55% EF 2C: 36.30 >55% EF BiP: 42.30 >55% Mitral Valve MV Pk E: 1.19 MV PK A: 1.57 MV Decel Time: 153.00 E/A: 0.80 E'Lateral: 5.37 E'Medial: 4.10 E/E' Med: 29.00 E/E' Lat: 22.20 PHT: 45.00 MVA PHT: 4.89 Decel Sumner: 7.78 Aortic Valve AoV Pk Josafat: 1.14 AoV Mn Josafat: 0.81 AoV VTI: 0.21 AoV Pk Grad: 5.00 Aov Mn Grad: 3.00 MALATHI Cont.VTI: 2.69 LVOT LVOT Pk Josafat: 0.83 LVOT Mn Josafat: 0.56 LVOT VTI: 0.15 LVOT Pk Grad: 3.00 LVOT Mn Grad: 2.00 LVOT Diam: 2.20 LVOT Area: 3.80 Diastolic Function MV Pk E: 1.19 MV Pk A: 1.57 E/A: 0.80 E'Medial: 4.10 E/E' Med: 29.00 E' Laterial: 5.37 E/E' Lat: 22.20 Right Ventricle TAPSE (mm): 17.10 TVS' Josafat: 11.00 Tricuspid Valve TR Pk Josafat: 1.66 TR Pk Grad: 11.00 RA Press: 8.00 RVSP: 19.00 Great Vessels Aorta Sinus of Valsalva: 3.30 2.0-3.5 cm Ao Asc: 3.20 2.1-3.4 cm Pulmonary Valve PV Pk Josafat: 0.67 Peak PV Grad: 2.00 Updated in Other Vendor System with Status of Final Ignacio Cintron MD electronically signed on 10/15/2024 3:09:52 PM with status of Final
[2024-10-15 07:08] LABS: Hematocrit 36.7 % (37.0-47.0); Hemoglobin 10.9 g/dl (12.0-16.0); Mean Corpuscular HGB Conc 29.7 g/dl (31.0-35.0); Mean Corpuscular Volume 77.4 fL (80.0-98.0); Mean Platelet Volume 9.7 fL (9.4-12.3); Platelet Count 320 X10*3/uL (160-400); Red Blood Count 4.74 X10*6/uL (4.20-5.50); Red Cell Distribution Width 18.6 % (11.0-16.0); White Blood Count 8.6 X10*3/uL (4.8-10.8)
[2024-10-15 07:21] LABS: Anion Gap 14 (12-20); Blood Urea Nitrogen 17 mg/dL (9-16); Calcium 8.6 mg/dL (8.4-10.2); Carbon Dioxide 24 mmol/L (22-29); Chloride 104 mmol/L (96-108); Creatinine Clr Calc Pharmacy 74.1; Estimated Glomerular Filt Rate > 60; Glucose Random 335 mg/dL (60-115); Potassium 4.6 mmol/L (3.3-5.1); Sodium 137 mmol/L (135-145)
[2024-10-15 07:37] LABS: Glucose, Whole Blood 332 mg/dL (60-115)
[2024-10-15 07:43] VITALS: BP 148/86; PULSE 98; RESP 20; TEMP 36.6; O2SAT 95
[2024-10-15 08:14] VITALS: PULSE 98; RESP 20; O2SAT 100
[2024-10-15] MEDS: Budesonide 0.5 MG/2 ML AMPUL.NEB INHALE (08:14)
--- NOTE | 2024-10-15 08:25 | MHC.CM.PN ---
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 Original Note: Patient lives in an apartment with her Sister, uses a walker to assist with mobility, and receives her home O2 & CPAP from [facility]. Home/resume said services is the goal and CM has initiated and will follow for dc planning. PCP is Dr. Joe Hale and HCP is Daughter/Jaja. Patient typically requests a LYFT for transport to home.
[2024-10-15] MEDS: Insulin Lispro 100 UNIT/ML 3 ML VIAL SUBCUT (08:52)
[2024-10-15] MEDS: polyethylene glycoL 3350 17 GM POWD.PACK PO (08:53)
--- NOTE | 2024-10-15 10:02 | PHA.MEDREC ---
Addendum entered by Madonna Dan [facility] 10/15/24 10:02: Patient stated she no longer takes topiramate, patient was taking it for headaches and found it provided no benefit. Original Note: Pharmacy Consult ? Medication Reconciliation Pharmacy has completed the medication reconciliation. Spoke with patient this morning.
--- NOTE | 2024-10-15 11:02 | MHC.SL.SWA ---
Speech Pathologist Impression: Risk of Aspiration Due to: Weak Voice Dysphasia Diet Status: Liquid Consistency and Strategies for Safe Swallow: Liquid Intake Recommendation: Thin Liquid Intake Strategies: Small Sips Solid Food Consistency: Dietary Recommendations: Regular Additional Modifications to Solid Foods: Patient was encouraged to elect softer foods from the regular menu, and to avoid difficult to chew solids. She was further advised to take small bites, chew food thoroughly, and alternate regularly with sips of liquid. Small sips was emphasized, as larger sips may aggravate/cause regurgitation of liquid with bolus is present in esophagus. Patient should remain upright for at least 30 minutes following meals, secondary to history of GERD. Oral Medication Intake: Whole with Liquid Please contact the pharmacy regarding appropriate crushable or liquid drug formulations that are available whenever modified delivery is recommended. Compensatory Strategies and Precautions to be Taken for Safe Swallow: Sitting Upright (90 deg) Double Swallow Liquids from Cup Liquids from Straw Small Bites and Sips Alternate Liquids/Solids Rate of Ingestion Change Supervision While Eating and Drinking for Safe Swallow: None Needed Foods to Avoid: Tough, difficult to chew solids, too large pieces of food. Swallowing Recommended Treatments: Compens. Strategy Educat. Recommendation for Speech: Inpatient Speech Therapy Comment: Patient reports history of esophagitis and presents with symptoms/behaviors consistent with esophageal dysmotility after swallow. Patient further presents with moderate to severe vocal dysphonia (harsh, breathy vocal quality with frequent aphonic breaks), and likely has vocal pathology from coughing behavior noted (patient attempts to cough up food she feels is stuck in her esophagus). Oral pharyngeal phase of swallow otherwise presented as WFL. Patient reports that she is scheduled as outpatient for MBSS study on 10/20/24. It is recommended that she continue on a Regular Diet with Thin liquids with pills whole with liquid, with strategies recommended: Elect softer foods from the regular menu, take small bites and sips, chew thoroughly, alternate bites of food with sips of liquid, remain upright 30 minutes after meals. If patient remains as inpatient through saturday, recommended patient be seen for the scheduled MBSS study. Otherwise, patient was encouraged to return for this assessment as outpatient. Patient would further benefit from an ENT evaluation as outpatient for noted voice issues. HEMATOLOGY SUPERVISOR will continue to follow as inpatient 1-2X for toleration. Frequency/Duration: Date Range for Service Req: Timeline to reassess: Language Teacher Clinican/Clinical Fellow: No Supervisory Statement: I have reviewed and agree with the student/clinical fellow's documentation: N/A Speech Language Pathologist: Sia Catalan M.A., [facility]-HEMATOLOGY SUPERVISOR
[2024-10-15 11:03] LABS: Appearance Urine Clear; Color Urine Yellow; Glucose Urine UA 500 mg/dL (Negative); Leukocyte Esterase Urine Small (1+) (Negative); Nitrite Urine Negative (Negative); Specific Gravity - Urine 1.015 (1.005-1.025); UMIC TRIGGER UA YES; Urine Blood Negative (Negative); Urine Ketones Negative (Negative); Urine Protein Negative (Neg-Trace)
[2024-10-15 11:13] LABS: Glucose, Whole Blood 146 mg/dL (60-115)
[2024-10-15 11:14] LABS: Bacteria Urine Trace (None Seen); Hyaline Casts Urine 0-2 /LPF (0-2); RBC Urine 0-2 /HPF (0-2); WBC Urine 0-5 /HPF (0-5)
[2024-10-15 11:51] VITALS: BP 132/82; PULSE 101; RESP 18; TEMP 36.5; O2SAT 95
--- NOTE | 2024-10-15 12:00 | HO.PM.IMPN ---
Subjective Subjective Date of Service: 10/15/24 Interval History: Seen and examined this morning Follow-up for respiratory failure/COPD exacerbation Persistent shortness of breath Review of Systems Review of Systems: Yes all other systems are reviewed and are negative Constitutional Constitutional: Denies chills and Denies fever(s) Physical Exam Vital Signs: Vital Signs: Last Vital Signs Temp 97.7 F 10/15/24 11:51 Pulse 101 H 10/15/24 11:51 Resp 18 10/15/24 11:51 BP 132/82 10/15/24 11:51 Pulse Ox 95 10/15/24 11:51 O2 Del Method Nasal Cannula 10/15/24 11:51 O2 Flow Rate 3 10/15/24 11:51 BMI result Body Mass Index 35.2 Const: General: alert and awake Nutritional Appearance: obese Orientation/consciousness: patient oriented x3 Resp: Effort & Inspection: normal respiratory effort, able to speak in complete sentences, no respiratory distress and no use of accessory muscles Cardio: Rate: tachycardic GI: Inspection: No distended and Yes obesity Palpation (GI): Soft to palpation Neuro: General: patient oriented x3, moves all extremities and CN's II-XI intact bilaterally Objective Data Active Medications Acetaminophen (Acetaminophen 325 Mg Tablet) 650 mg PO Q6H PRN PRN Reason: Pain, Mild 1-3,fever,headache Albuterol/Ipratropium (Albuterol/Iprat 2.5/0.5mg 3 Ml Ampul.Neb) 3 ml INHALE Q4H PRN PRN Reason: Shortness of Breath/Wheezing Last Admin: 10/15/24 04:27 Dose: 3 ml Documented By: AALIYAH Albuterol/Ipratropium (Albuterol/Iprat 2.5/0.5mg 3 Ml Ampul.Neb) 3 ml INHALE TID [facility] Aspirin (Aspirin Enteric Coated 81 Mg Tablet.Dr) 81 mg PO DAILY [facility] Atorvastatin Calcium (Atorvastatin Calcium 20 Mg Tablet) 20 mg PO BEDTIME [place] Bisacodyl (Bisacodyl 10 Mg Supp.Rect) 10 mg UT BEDTIME PRN PRN Reason: Constipation Budesonide (Budesonide 0.5 Mg/2 Ml Ampul.Neb) 0.5 mg INHALE RBID [facility] Last Admin: 10/15/24 08:14 Dose: 0.5 mg Documented By: ANDREA Calcium Carbonate (Calcium Carbonate 750 Mg Tab.Chew) 750 mg PO Q4H PRN PRN Reason: Heartburn Calcium Carbonate/Cholecalciferol (Calcium + Vitamin D 250 Mg Tablet) 250 mg PO DAILY [facility] Ceftriaxone Sodium (Ceftriaxone Sodium 1 Gm Vial) 1 gm IVPUSH Q24H [facility] Last Admin: 10/15/24 00:34 Dose: 1 gm Documented By: ARIS Dextrose (Dextrose 50 % 25 Gm/50 Ml Syringe) 25 gm IVPUSH Q15M PRN; Protocol PRN Reason: per Hypoglycemia Standing Ord. Enoxaparin Sodium (Enoxaparin Sodium 40 Mg/0.4 Ml Syringe) 40 mg SUBCUT BEDTIME [facility] Last Admin: 10/14/24 23:54 Dose: 40 mg Documented By: ARIS Furosemide (Furosemide 20 Mg Tablet) 20 mg PO DAILY [facility]; Protocol Gabapentin (Gabapentin 400 Mg Capsule) 800 mg PO QID [facility] Glucose (Glucose Gel 15 Gm Gel..Gram.) 15 gm PO Q15M PRN; Protocol PRN Reason: per Hypoglycemia Standing Ord. Insulin Human Lispro (Insulin Lispro 100 Unit/Ml 3 Ml Vial) 0 unit SUBCUT QIDACHS [facility]; Protocol Last Admin: 10/15/24 08:52 Dose: 8 unit Documented By: ADDISON Loratadine (Loratadine 10 Mg Tablet) 10 mg PO DAILY [facility] Losartan Potassium (Losartan Potassium 50 Mg Tablet) 50 mg PO DAILY [facility]; Protocol Magnesium Hydroxide (Milk Of Magnesia 30 Ml Oral.Susp) 30 ml PO DAILY PRN PRN Reason: Constipation Melatonin (Melatonin 3 Mg Tablet) 6 mg PO BEDTIME PRN PRN Reason: Insomnia Methylprednisolone Sodium Succinate (Methylprednisolone Sod Succ 125 Mg/2 Ml Vial) 60 mg IV Q12H [facility] Last Admin: 10/15/24 00:34 Dose: 60 mg Documented By: ARIS Nicotine (Nicotine 21 Mg Patch.Td24) 21 mg TRANSDERMA DAILY [facility] Last Admin: 10/14/24 23:53 Dose: 21 mg Documented By: ARIS Ondansetron HCl (Ondansetron Hcl 4 Mg/2 Ml Vial) 4 mg IVPUSH Q8H PRN PRN Reason: Nausea and Vomiting Pantoprazole Sodium (Pantoprazole Sodium 40 Mg/10 Ml Vial) 40 mg IVPUSH DAILY@0630 [facility] Last Admin: 10/15/24 04:06 Dose: 40 mg Documented By: ALPA Polyethylene Glycol (Polyethylene Glycol 3350 17 Gm Powd.Pack) 17 gm PO DAILY [facility] Last Admin: 10/15/24 08:53 Dose: 17 gm Documented By: ADDISON Senna (Sennosides 8.6 Mg Tablet) 17.2 mg PO BEDTIME [facility] Sertraline HCl (Sertraline Hcl 50 Mg Tablet) 150 mg PO DAILY [facility] Sodium Chloride (0.9 % Sodium Chloride Flush 3 Ml Syringe) 3 ml IVFLUSH QSHIFT [facility] Last Admin: 10/15/24 00:03 Dose: 3 ml Documented By: ARIS Theophylline (Theophylline Anhydrous Er 400 Mg Tab.Er.24h) 400 mg PO BID [facility] Tizanidine HCl (Tizanidine Hcl 4 Mg Tablet) 4 mg PO Q12H PRN PRN Reason: muscle spasm Tramadol HCl (Tramadol Hcl 50 Mg Tablet) 50 mg PO Q6H PRN PRN Reason: Pain, Severe (Pain Scale 7-10) Last Admin: 10/15/24 04:22 Dose: 50 mg Documented By: ALPA Labs 10/15/24 06:31 10/15/24 06:31 Labs: Laboratory Results - last 24 hr 10/14/24 10/14/24 10/14/24 19:00 19:03 21:20 MCV 77.8 L MCH 22.7 L MCHC 29.2 L RDW 19.3 H Plt Count 377 D MPV 9.3 L Immature Gran % (Auto) 0.4 Neut % (Auto) 51.4 Lymph % (Auto) 37.6 [place] % (Auto) 8.4 Eos % (Auto) 1.8 Baso % (Auto) 0.4 Lymph # (Auto) 6.8 H [place] # (Auto) 1.5 H Eos # (Auto) 0.3 Baso # (Auto) 0.1 Abs Immat Gran (auto) 0.07 H Absolute Neuts (auto) 9.3 H Absolute Nucleated RBC 0.000 Nucleated RBC % (auto) 0.0 Smear Tech's Comments VERIFIED Hold Blue Top SEE NOTE VBG pH 7.24 L VBG pCO2 61 VBG pO2 42 VBG HCO3 26 VBG O2 Saturation 62.0 VBG Base Excess -1.9 Anion Gap 19 Estim Creat Clear Calc TNP Estimated GFR > 60 POC Glucose Random Glucose 144 H Lactic Acid 5.2 H* Lactic Acid F/U @ 2Hr 1.8 Calcium 9.2 Magnesium 1.9 Total Bilirubin 0.2 Direct Bilirubin < 0.2 AST 18 ALT 19 Alkaline Phosphatase 105 B-Natriuretic Peptide 115 H Total Protein 7.0 Albumin 4.2 TSH 1.83 Free T4 1.01 Urine Color Urine Appearance Urine pH Ur Specific Blair Urine Protein Urine Glucose (UA) Urine Ketones Urine Blood Urine Nitrite Ur Leukocyte Esterase Urine RBC Urine WBC Ur Squamous Epith Cells Urine Bacteria Hyaline Casts Urine Yeast Influenza Type A (PCR) NEGATIVE Influenza Type B (PCR) NEGATIVE RSV RNA Qual (PCR) NEGATIVE SARS-CoV-2 RNA (RT-PCR) NEGATIVE 10/14/24 10/15/24 10/15/24 21:25 06:31 07:18 MCV 77.4 L MCH 23.0 L MCHC 29.7 L RDW 18.6 H Plt Count 320 MPV 9.7 Immature Gran % (Auto) Neut % (Auto) Lymph % (Auto) [place] % (Auto) Eos % (Auto) Baso % (Auto) Lymph # (Auto) [place] # (Auto) Eos # (Auto) Baso # (Auto) Abs Immat Gran (auto) Absolute Neuts (auto) Absolute Nucleated RBC 0.000 Nucleated RBC % (auto) 0.0 Smear Tech's Comments Hold Blue Top VBG pH 7.32 VBG pCO2 52 VBG pO2 47 VBG HCO3 27 H VBG O2 Saturation 74.0 VBG Base Excess 0.3 Anion Gap 14 Estim Creat Clear Calc 74.1 Estimated GFR > 60 POC Glucose 332 H Random Glucose 335 H Lactic Acid Lactic Acid F/U @ 2Hr Calcium 8.6 D Magnesium Total Bilirubin Direct Bilirubin AST ALT Alkaline Phosphatase B-Natriuretic Peptide Total Protein Albumin TSH Free T4 Urine Color Urine Appearance Urine pH Ur Specific Blair Urine Protein Urine Glucose (UA) Urine Ketones Urine Blood Urine Nitrite Ur Leukocyte Esterase Urine RBC Urine WBC Ur Squamous Epith Cells Urine Bacteria Hyaline Casts Urine Yeast Influenza Type A (PCR) Influenza Type B (PCR) RSV RNA Qual (PCR) SARS-CoV-2 RNA (RT-PCR) 10/15/24 10/15/24 10:49 11:09 MCV MCH MCHC RDW Plt Count MPV Immature Gran % (Auto) Neut % (Auto) Lymph % (Auto) [place] % (Auto) Eos % (Auto) Baso % (Auto) Lymph # (Auto) [place] # (Auto) Eos # (Auto) Baso # (Auto) Abs Immat Gran (auto) Absolute Neuts (auto) Absolute Nucleated RBC Nucleated RBC % (auto) Smear Tech's Comments Hold Blue Top VBG pH VBG pCO2 VBG pO2 VBG HCO3 VBG O2 Saturation VBG Base Excess Anion Gap Estim Creat Clear Calc Estimated GFR POC Glucose 146 H Random Glucose Lactic Acid Lactic Acid F/U @ 2Hr Calcium Magnesium Total Bilirubin Direct Bilirubin AST ALT Alkaline Phosphatase B-Natriuretic Peptide Total Protein Albumin TSH Free T4 Urine Color Yellow Urine Appearance Clear Urine pH 6.0 Ur Specific Blair 1.015 Urine Protein Negative Urine Glucose (UA) 500 H Urine Ketones Negative Urine Blood Negative Urine Nitrite Negative Ur Leukocyte Esterase Small (1+) H Urine RBC 0-2 Urine WBC 0-5 Ur Squamous Epith Cells 3-5 Urine Bacteria Trace Hyaline Casts 0-2 Urine Yeast Present Influenza Type A (PCR) Influenza Type B (PCR) RSV RNA Qual (PCR) SARS-CoV-2 RNA (RT-PCR) Assessment and Plan (1) Acute exacerbation of chronic obstructive pulmonary disease: Status: Acute Plan This is a 54-year-old female with past medical history of [id number] diabetes, HENRY, hypertension, hyperlipidemia, COPD/emphysema tobacco dependence, cocaine abuse, obesity, GERD, Bustos's esophagus follow, UTI with history of sling for her bladder, hernia and history of hernia surgeries with mesh seen in the emergency department for shortness of breath admitted for sepsis secondary to acute hypoxic respiratory failure and COPD exacerbation with noted leukocytosis, lactic acidosis currently resolved and hypoxia. Sepsis/Acute hypoxic respiratory failure due to Acute COPD exacerbation LA 5.2 has trended down to 1.8. Leukocytosis resolved BCX2 pending On baseline oxygen, continue HS BiPAP 06/04 for HENRY as recommended by Dr. Kessler during last pulmonary outpatient visit (has been noncompliant with BiPAP) Continue IV 60 mg of Solu-Medrol b.i.d. Duo nebs p.r.n. and budesonide scheduled Ceftriaxone 1GM QD ordered empirically (pt unable to take doxycyline or azithromycin due to allergy) Incentive spirometer/ pulmonary toileting Tobacco dependence Smoking cessation advised Continue NRT Elevated BNP 115, CM, RVH on ECG Echocardiogram ordered Lasix 20 IV x1 given, continue baseline lasix HENRY resume BiPAP as above Hio-rgierlh-xuecqywhy type 2 diabetes Sliding scale insulin Diabetic diet Cocaine abuse Last use 5 days prior, patient counseled Patient deferred need to speak with addictions Constipation Patient having issues with straining and moving bowels regularly. Bowel regimen GERD/ Dysphagia with known Barretts esopahgus PPI ordered Speech therapy evaluation for swallowing pending Morbid obesity BMI 5.2 Contributing to HENRY/chronic breathing issues Weight loss encouraged DVT prophylaxis: Lovenox PPI prophylaxis: Protonix Med rec pending Patient requires inpatient hospitalization due to acute hypoxic respiratory failure, COPD exacerbation and evidence of sepsis with elevated lactic acid 5.2, tachycardia and hypoxia. Patient requires close monitoring as patient is high risk for clinical decline. Quality Stroke Does the patient have a stroke diagnosis?: No Reason for No Anti-thrombotic by Day Two: N/A - Med Ordered VTE Prior VTE?: No VTE Risk Level:: Medical - moderate - high VTE Device Contraindication: N/A - Device Ordered VTE Drug Contraindication: Treatment Not Tolerated
[2024-10-15] MEDS: Sertraline HCL 50 MG TABLET 150 MG PO (12:27)
[2024-10-15] MEDS: Furosemide 20 MG TABLET PO (12:28)
[2024-10-15] MEDS: Gabapentin 400 MG CAPSULE 800 MG PO (12:28)
--- NOTE | 2024-10-15 12:36 | PM.DS ---
DS: Providers Provider Date of Service: 10/15/24 Date of admission: 10/14/24 23:06 Date of discharge: 10/15/24 Primary care physician: Joe Hale [facility] Attending physician on discharge: Burt Rodríguez Discharging clinician: Vandana Cline DS: Diagnosis Discharge Diagnosis (1) Acute exacerbation of chronic obstructive pulmonary disease: Status: Acute DS: Summary Hospital Course Hospital Course: From H&P on the day of admission Patient is a 54-year-old female with past medical history of ien-[id number] diabetes, HENRY, hypertension, hyperlipidemia, COPD/emphysema with current nicotine use 1 pack per day of cigarettes, cocaine abuse, obesity, GERD, Bustos's esophagus follow, UTI with history of sling for her bladder, hernia and history of hernia surgeries with mesh presents to the emergency room after patient called 911 sudden onset severe shortness of breath when patient was using the bathroom. Patient's sister had been visiting and was asked to leave by the patient prior to the new onset dyspnea that occurred. Patient's sister had called [address] out[address] Patient reports mild chills with suspected fever although she did not check her temperature. Patient reported a burning sensation in her chest that did not radiate. Patient described a nonproductive cough. Patient states she used crack cocaine 5 days ago. Patient has been smoking 1 pack per day every day. Patient was seen by Dr. Kessler back in May of 2024 and it was recommended she change her CPAP at night for HENRY to BiPAP 12/5 and patient has been noncompliant with this practice and has not been using noninvasive ventilation at nighttime. Patient states she did not run out of oxygen at home but uses regularly. All viral studies were negative. Chest x-ray negative for definitive consolidation. Mild interstitial thickening considered artificial versus mild edema. In addition patient's BNP is elevated, cardiomegaly seen on chest x-ray and RVH noted on EKG. Patient is tachycardic secondary to hypoxia. Echo is ordered. Patient is not normally following with Cardiology so consult likely needed. Troponins are flat at 23 and 30. Patient currently does not have any chest pain and is satting 94% on 3 L nasal cannula but continues to have increased work with breathing, R 20. In the emergency department patient received 125 mg of Solu-Medrol IV, 2 g of magnesium, epinephrine and has overall improved as she is no longer dependent on BiPAP and can be admitted to the medical-surgical floor. Patient has been advised that BiPAP has been ordered 06/04 to assist patient with her overall breathing issues including sleep apnea. Patient being admitted for COPD exacerbation. Patient has a leukocytosis of 18. Lactic acid was 5.2 is now down to 1.8 likely due to the hypoxia. Patient received IV fluids. We will start patient on azithromycin. Patient does meet the criteria for sepsis due to leukocytosis, elevated lactic acid, hypoxia. Sepsis/Acute hypoxic respiratory failure due to Acute COPD exacerbation LA 5.2 has trended down to 1.8. Leukocytosis resolved BCX2 pending On baseline oxygen, continue HS BiPAP 06/04 for HENRY as recommended by Dr. Kessler during last pulmonary outpatient visit (has been noncompliant with BiPAP) Continue IV 60 mg of Solu-Medrol b.i.d. Duo nebs p.r.n. and budesonide scheduled Ceftriaxone 1GM QD ordered empirically (pt unable to take doxycyline or azithromycin due to allergy) Incentive spirometer/ pulmonary toileting Tobacco dependence Smoking cessation advised Continue NRT Elevated BNP 115, CM, RVH on ECG Echocardiogram ordered Lasix 20 IV x1 given, continue baseline lasix Patient is back on her baseline oxygen, she is feeling better and she is electing to leave the hospital against medical advice. She understands the plan was for her to have echocardiogram and further workup to assess for any underlying CHF. She does not want to stay in the hospital for further treatment Time Attestation Discharge Coordination Time (in mins): 30 Quality: Safe Use of Opioids Does Pt have an Active Cancer Diagnosis on the Problem List?: No Quality: Stroke Does the patient have a stroke diagnosis?: No Physical Exam Vital Signs: Vital Signs: Last Vital Signs Temp 97.7 F 10/15/24 11:51 Pulse 101 H 10/15/24 11:51 Resp 18 10/15/24 11:51 BP 132/82 10/15/24 11:51 Pulse Ox 95 10/15/24 11:51 O2 Del Method Nasal Cannula 10/15/24 11:51 O2 Flow Rate 3 10/15/24 11:51 BMI result Body Mass Index 35.2 Const: General: alert and awake Orientation/consciousness: patient oriented x3 Neuro: General: patient oriented x3 DS: Data Data Completed and Pending Completed studies during hospitalization [Text1]: Procedures Assistance with Respiratory Ventilation, Less than 24 Consecutive Hours, Continuous Positive Airway Pressure (09/30/24) Insertion of Endotracheal Airway into Trachea, Via Natural or Artificial Opening (11/03/20) Insertion of Infusion Device into Superior Vena Cava, Percutaneous Approach (11/03/20) Respiratory Ventilation, Less than 24 Consecutive Hours (11/03/20) Labs on day of discharge: Laboratory Results - last 24 hr 10/14/24 10/14/24 10/14/24 19:00 19:03 21:20 WBC 18.1 H RBC 5.19 Hgb 11.8 L Hct 40.4 MCV 77.8 L MCH 22.7 L MCHC 29.2 L RDW 19.3 H Plt Count 377 D MPV 9.3 L Immature Gran % (Auto) 0.4 Neut % (Auto) 51.4 Lymph % (Auto) 37.6 [place] % (Auto) 8.4 Eos % (Auto) 1.8 Baso % (Auto) 0.4 Lymph # (Auto) 6.8 H [place] # (Auto) 1.5 H Eos # (Auto) 0.3 Baso # (Auto) 0.1 Abs Immat Gran (auto) 0.07 H Absolute Neuts (auto) 9.3 H Absolute Nucleated RBC 0.000 Nucleated RBC % (auto) 0.0 Smear Tech's Comments VERIFIED Hold Blue Top SEE NOTE VBG pH 7.24 L VBG pCO2 61 VBG pO2 42 VBG HCO3 26 VBG O2 Saturation 62.0 VBG Base Excess -1.9 Sodium 143 Potassium 4.5 Chloride 106 Carbon Dioxide 23 Anion Gap 19 BUN 15 Creatinine 0.89 Estim Creat Clear Calc TNP Estimated GFR > 60 POC Glucose Random Glucose 144 H Lactic Acid 5.2 H* Lactic Acid F/U @ 2Hr 1.8 Calcium 9.2 Magnesium 1.9 Total Bilirubin 0.2 Direct Bilirubin < 0.2 AST 18 ALT 19 Alkaline Phosphatase 105 Troponin I High Sens 30.0 H B-Natriuretic Peptide 115 H Total Protein 7.0 Albumin 4.2 TSH 1.83 Free T4 1.01 Urine Color Urine Appearance Urine pH Ur Specific [place] Urine Protein Urine Glucose (UA) Urine Ketones Urine Blood Urine Nitrite Ur Leukocyte Esterase Urine RBC Urine WBC Ur Squamous Epith Cells Urine Bacteria Hyaline Casts Urine Yeast Influenza Type A (PCR) NEGATIVE Influenza Type B (PCR) NEGATIVE RSV RNA Qual (PCR) NEGATIVE SARS-CoV-2 RNA (RT-PCR) NEGATIVE 10/14/24 10/15/24 10/15/24 21:25 06:31 07:18 WBC 8.6 RBC 4.74 Hgb 10.9 L Hct 36.7 L MCV 77.4 L MCH 23.0 L MCHC 29.7 L RDW 18.6 H Plt Count 320 MPV 9.7 Immature Gran % (Auto) Neut % (Auto) Lymph % (Auto) [place] % (Auto) Eos % (Auto) Baso % (Auto) Lymph # (Auto) [place] # (Auto) Eos # (Auto) Baso # (Auto) Abs Immat Gran (auto) Absolute Neuts (auto) Absolute Nucleated RBC 0.000 Nucleated RBC % (auto) 0.0 Smear Tech's Comments Hold Blue Top VBG pH 7.32 VBG pCO2 52 VBG pO2 47 VBG HCO3 27 H VBG O2 Saturation 74.0 VBG Base Excess 0.3 Sodium 137 Potassium 4.6 Chloride 104 Carbon Dioxide 24 Anion Gap 14 BUN 17 H Creatinine 0.77 Estim Creat Clear Calc 74.1 Estimated GFR > 60 POC Glucose 332 H Random Glucose 335 H Lactic Acid Lactic Acid F/U @ 2Hr Calcium 8.6 D Magnesium Total Bilirubin Direct Bilirubin AST ALT Alkaline Phosphatase Troponin I High Sens B-Natriuretic Peptide Total Protein Albumin TSH Free T4 Urine Color Urine Appearance Urine pH Ur Specific [place] Urine Protein Urine Glucose (UA) Urine Ketones Urine Blood Urine Nitrite Ur Leukocyte Esterase Urine RBC Urine WBC Ur Squamous Epith Cells Urine Bacteria Hyaline Casts Urine Yeast Influenza Type A (PCR) Influenza Type B (PCR) RSV RNA Qual (PCR) SARS-CoV-2 RNA (RT-PCR) 10/15/24 10/15/24 10:49 11:09 WBC RBC Hgb Hct MCV MCH MCHC RDW Plt Count MPV Immature Gran % (Auto) Neut % (Auto) Lymph % (Auto) [place] % (Auto) Eos % (Auto) Baso % (Auto) Lymph # (Auto) [place] # (Auto) Eos # (Auto) Baso # (Auto) Abs Immat Gran (auto) Absolute Neuts (auto) Absolute Nucleated RBC Nucleated RBC % (auto) Smear Tech's Comments Hold Blue Top VBG pH VBG pCO2 VBG pO2 VBG HCO3 VBG O2 Saturation VBG Base Excess Sodium Potassium Chloride Carbon Dioxide Anion Gap BUN Creatinine Estim Creat Clear Calc Estimated GFR POC Glucose 146 H Random Glucose Lactic Acid Lactic Acid F/U @ 2Hr Calcium Magnesium Total Bilirubin Direct Bilirubin AST ALT Alkaline Phosphatase Troponin I High Sens B-Natriuretic Peptide Total Protein Albumin TSH Free T4 Urine Color Yellow Urine Appearance Clear Urine pH 6.0 Ur Specific [place] 1.015 Urine Protein Negative Urine Glucose (UA) 500 H Urine Ketones Negative Urine Blood Negative Urine Nitrite Negative Ur Leukocyte Esterase Small (1+) H Urine RBC 0-2 Urine WBC 0-5 Ur Squamous Epith Cells 3-5 Urine Bacteria Trace Hyaline Casts 0-2 Urine Yeast Present Influenza Type A (PCR) Influenza Type B (PCR) RSV RNA Qual (PCR) SARS-CoV-2 RNA (RT-PCR) Discharge Plan Discharge Patient Disposition: Left Against Medical Advice Discharge Diagnosis: Sepsis due to Acute COPD exacerbation Referrals: Joe Hale, [facility] [Primary Care Provider] - 1 Week Discharge Medications: No Action (DME) lancets [FreeStyle Lancets] 28 gauge misc See Rx Instructions .ROUTE .MEDSUPPLY Qty: 100 1RF Rx Instructions: Use to check blood sugar daily or if symptomatic hypo/hypergylcemia (DME) 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 meter [FreeStyle Lite Meter] Kit See Rx Instructions .ROUTE .MEDSUPPLY Qty: 1 0RF Rx Instructions: Use to check blood sugar daily or if symptomatic for hypo/hyperglycemia (DME) FreeStyle Lite Strips Strip See Rx Instructions .ROUTE .MEDSUPPLY Qty: 100 1RF Rx Instructions: Use to check blood sugar daily or if symptomatic hypo/hypergylcemia furosemide 20 mg tablet 20 mg PO DAILY Qty: 90 3RF aspirin 81 mg tablet,delayed release (DR/EC) 81 mg PO DAILY 90 Days Qty: 90 1RF theophylline 400 mg tablet extended release 24 hr 400 mg PO BID 90 Days Qty: 180 4RF albuterol sulfate [Ventolin HFA] 90 mcg/actuation HFA aerosol inhaler 2 puff inhalation Q6H PRN (Reason: for wheezing) Qty: 1 6RF glipizide 5 mg tablet 5 mg PO DAILY Qty: 90 1RF (DME) cane Device See Rx Instructions .Route Qty: 1 0RF Rx Instructions: Standard cane (DME) Rollator walker See Rx Instructions .Route .MEDSUPPLY Qty: 1 0RF Rx Instructions: As directed (DME) pulse oximeter See Rx Instructions .Route .MEDSUPPLY Qty: 1 0RF Rx Instructions: As directed fexofenadine [Elisabeth Allergy] 180 mg tablet 180 mg PO DAILY Qty: 30 3RF glucose 4 gram tablet,chewable 16 g PO Q15M MDD 8 tabs PRN (Reason: hypoglycemia) Qty: 100 1RF Rx Instructions: until symptoms of low blood sugar are controlled (DME) FreeStyle Jemima 3 Plus Sensor Device See Rx Instructions .Route Qty: 2 5RF Rx Instructions: To monitor blood sugars 4 times per day. Change sensor every 15 days (DME) FreeStyle Jemima 3 [place] Misc See Rx Instructions .Route Qty: 1 0RF Rx Instructions: To monitor blood sugar 4 times per day tizanidine 4 mg tablet 4 mg PO Q12H PRN (Reason: muscle spasm) 30 Days Qty: 60 0RF Rx Instructions: do not take concurrently with famotidine ibuprofen 800 mg tablet 800 mg PO BID PRN (Reason: Headache) 30 Days Qty: 60 0RF Rx Instructions: please use sparingly due to diabetes acetaminophen 650 mg tablet extended release 650 mg PO Q12H PRN (Reason: pain) 30 Days Qty: 60 0RF gabapentin 800 mg tablet 800 mg PO QID 30 Days Qty: 120 0RF sertraline 100 mg tablet 150 mg PO DAILY 90 Days Qty: 135 0RF atorvastatin 20 mg tablet 20 mg PO BEDTIME 90 Days Qty: 90 0RF calcium carbonate-vitamin D3 500 mg-10 mcg (400 unit) tablet 1 tab PO DAILY albuterol sulfate 2.5 mg /3 mL (0.083 %) solution for nebulization 2.5 mg inhalation Q4H PRN (Reason: Shortness Of Breath/Wheezing) (DME) mary anne Misc See Rx Instructions .Route Qty: 1 0RF Rx Instructions: As directed losartan 50 mg tablet 50 mg PO DAILY ipratropium-albuterol 0.5 mg-3 mg(2.5 mg base)/3 mL solution for nebulization 3 ml INHALATION TID Stiolto Respimat 2.5-2.5 mcg/actuation mist 2 puff INHALATION DAILY nicotine 21 mg/24 hr patch 24 hour 1 patch transdermal Q24H Qty: 28 0RF tramadol 50 mg tablet 50 mg PO Q6H PRN (Reason: pain) Qty: 20 0RF esomeprazole magnesium 40 mg capsule,delayed release(DR/EC) 40 mg PO DAILY Qty: 30 3RF Discharge Orders: Discharge Order (Routine); Ordered 10/15/24 Ordered By: Vandana Cline Activity on Discharge: As tolerated Print Language: Bahamian Care Plan Goals: Prevent rehospitalization Health Concerns: Recurrent admissions due to respiratory failure/ COPD exacerbations due to underlying cocaine use and active tobacco use/noncompliance with noninvasive ventilation Plan of Treatment: Recommend to abstain from cocaine use and tobacco use Use oxygen and BiPAP as prescribed Assessment: you have elected to leave the hospital against medical advice, workup has not been completed. Recommend to call and schedule follow-up appointment with your PCP. If shortness of breath recurs recommend return to the nearest emergency department for evaluation
[2024-10-15 12:44] LABS: Amphetamine Screen Urine Not Detected (Not Detect); Barbiturates, Urine Not Detected (Not Detect); Benzodiazepines Screen Urine Not Detected (Not Detect); Buprenorphine Scr Not Detected (Not Detect); Cannabinoid Screen Urine Not Detected (Not Detect); Cocaine Screen Urine Not Detected (Not Detect); Fentanyl, urine POSITIVE (Not Detect); Methadone Screen, Urine Not Detected (Not Detect); Opiate Screen Urine Not Detected (Not Detect); Oxycodone Screen Urine Not Detected (Not Detect); Phencyclidine Screen Urine Not Detected (Not Detect)
--- NOTE | 2024-10-15 13:05 | MHC.CM.PN ---
Patient has left AMA.
== END 2024-10-15 13:32 | disposition left against medical advice (07) | DRG 720 ==
LOC: HO.ED 23:09 → HO.EDOVER 23:12 → HO.IMC 10-15 01:35
PROVIDERS: Admitting Provider Nurse Practitioner Family; Emergency Provider Emergency Medicine; PCP Nurse Practitioner Family; Visit Provider Physician Assistant Medical
DX: A41.9 Sepsis, unspecified organism (principal); J96.01 Acute respiratory failure with hypoxia; E87.20 Acidosis, unspecified; E11.9 Type 2 diabetes mellitus without complications; G47.33 Obstructive sleep apnea (adult) (pediatric); J43.9 Emphysema, unspecified; F14.10 Cocaine abuse, uncomplicated; K59.01 Slow transit constipation; K22.70 Barrett's esophagus without dysplasia; R13.10 Dysphagia, unspecified; E66.01 Morbid (severe) obesity due to excess calories; Z68.35 Body mass index [BMI] 35.0-35.9, adult; K21.9 Gastro-esophageal reflux disease without esophagitis; F17.210 Nicotine dependence, cigarettes, uncomplicated; Z71.3 Dietary counseling and surveillance; Z71.6 Tobacco abuse counseling; Z20.822 Contact with and (suspected) exposure to COVID-19; Z79.82 Long term (current) use of aspirin; Z79.84 Long term (current) use of oral hypoglycemic drugs; Z79.899 Other long term (current) drug therapy
CPT/HCPCS: 0241U; 36415; 71045; 80048; 80076; 80307; 81001; 81003; 82803; 82947; 83605; 83735; 83880; 84439; 84443; 84484; 85025; 85027; 87040; 92610; 93005; 93306; 94640; 94660; 99285; J0696; J1650; J1938; J1940; J1956; J2470; J2919; J3360; J3475; J7120; Q9957

== ENCOUNTER → 2024-10-14 18:57 | Outpatient (BNV) | payer OTHER, SELFPAY | PROVIDERS: Admitting Provider Nurse Practitioner Family; Emergency Provider Emergency Medicine; PCP Nurse Practitioner Family; Visit Provider Internal Medicine Cardiovascular Disease | DX: I49.3 Ventricular premature depolarization (principal); R00.0 Tachycardia, unspecified | CPT/HCPCS: 93010 ==

== ENCOUNTER → 2024-10-14 18:58 | Outpatient (BNV) | payer OTHER, SELFPAY | PROVIDERS: Emergency Provider Emergency Medicine; Visit Provider Radiology Diagnostic Radiology | DX: R06.02 Shortness of breath (principal) | CPT/HCPCS: 71045 ==

== ENCOUNTER 2024-10-14 23:06 | Outpatient (BNV) | payer OTHER, SELFPAY | END 2024-10-15 07:00 | PROVIDERS: Admitting Provider Nurse Practitioner Family; Emergency Provider Emergency Medicine; PCP Nurse Practitioner Family; Visit Provider Internal Medicine Cardiovascular Disease | DX: I34.0 Nonrheumatic mitral (valve) insufficiency (principal) | CPT/HCPCS: 93306 ==

== ENCOUNTER → 2024-10-14 23:06 | Outpatient (BNV) | payer OTHER, SELFPAY | PROVIDERS: Admitting Provider Nurse Practitioner Family; Emergency Provider Emergency Medicine; Visit Provider Nurse Practitioner Family | DX: J44.1 Chronic obstructive pulmonary disease with (acute) exacerbation (principal) | CPT/HCPCS: 99222; 99233; 99239 ==

== ENCOUNTER 2024-10-17 03:33 | Inpatient (IN) | payer OTHER, SELFPAY ==
[2024-10-17] VITALS (18 sets, daily range): BP systolic 111–151; BP diastolic 71–117; PULSE 86–114; RESP 12–20; TEMP 35.8–36.7; O2SAT 94–98; BMI 35.1; BMI 33.9
--- NOTE | ~2024-10-17 | XR_ITS ---
CLINICAL HISTORY: sob 1 view chest x-ray Comparison: CR - XR CHEST 1V - 10/14/24 19:03 EDT CR - XR CHEST 1V - 10/12/24 20:38 EDT CR - XR CHEST 1V - 09/30/24 06:03 EDT Findings: Lower lung volumes which further accentuates pulmonary interstitium. No consolidation, pleural effusion or pneumothorax. Stable cardiomegaly. Normal mediastinal contour. Bones, soft tissues and upper abdomen unchanged. IMPRESSION: No acute process or appreciable change from priors accounting for lower lung volumes. This document has been electronically signed by: Larry Ny MD on 10/17/2024 05:21:14
--- NOTE | 2024-10-17 03:42 | ECG_ITS ---
Test Reason : DYSPNEA Blood Pressure : */* mmHG Vent. Rate : 113 BPM Atrial Rate : 113 BPM P-R Int : 120 ms QRS Dur : 90 ms QT Int : 376 ms P-R-T Axes : 66 185 174 degrees QTcB Int : 515 ms Sinus tachycardia with Premature atrial complexes Right superior axis deviation Right ventricular hypertrophy ST & T wave abnormality, consider inferior ischemia ST & T wave abnormality, consider anterolateral ischemia Abnormal ECG When compared with ECG of 14-Oct-2024 18:58, Significant changes have occurred Referred By: Ly Bazan Electronically Signed By: PAUL VARGAS MD
--- NOTE | 2024-10-17 03:45 | PC.NURSE ---
late entry. PT comes from home via EMS with reports of SOB and increased work of breathing. PT has a history of COPD and asthma, and was just seen here on 10/16/24. PT arrived on cpap. Transfered to ED stretcher, placed in high flowelrs positions. rt called to bedside. placed on bipap 30% fio2, ipap 12 and epap 5. sp02 95-98% Iv lines placed in R AC and L wrist. Labs drawn, ekg completed 1500ml NS infusing. Provider asked to stop infusion at 0427 due to concern for fluid overload. Plan of care ongoing
--- NOTE | 2024-10-17 03:51 | ED.SOB ---
HPI - SOB/Dyspnea General Chief Complaint: Dyspnea Stated Complaint: asthma exacerbation Cpap Time Seen by Provider: 10/17/24 03:41 Source: patient and EMS Mode of arrival: EMS Limitations: no limitations History of Present Illness ED Provider: Dr. Ly Bazan HPI Narrative: Patient comes to the emergency room complaining of shortness of breath. Patient was discharged less than 48 hours ago. Patient was here admitted for acute hypoxic respiratory failure due to COPD. Patient left against medical advice. Patient complaining of worsening respiratory distress. Patient states that this time she will stay in the hospital. Related Data Home Medications ?Medication ?Instructions ?Recorded ?Confirmed calcium 500 mg (as 1 tab PO DAILY 06/26/24 10/15/24 carbonate)-vitamin D3 10 mcg (400 unit) tablet albuterol sulfate 2.5 mg/3 mL 2.5 mg inhalation Q4H PRN 07/13/24 10/15/24 (0.083 %) solution for nebulization Shortness Of Breath/Wheezing losartan 50 mg tablet 50 mg PO DAILY 07/17/24 10/15/24 ipratropium 0.5 mg-albuterol 3 mg 3 ml inhalation TID 09/30/24 10/15/24 (2.5 mg base)/3 mL nebulization soln tiotropium 2.5 mcg-olodaterol 2.5 2 puff inhalation DAILY 09/30/24 10/15/24 mcg/actuation mist for inhalation (Stiolto Respimat) Previous Rx's ?Medication ?Instructions ?Recorded lancets 28 gauge (FreeStyle #100 ea 01/20/21 Lancets) 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 meter (FreeStyle #1 ea 03/01/22 Lite Meter kit) blood sugar diagnostic (FreeStyle #100 ea 09/16/22 Lite Strips) furosemide 20 mg tablet 20 mg PO DAILY #90 tabs 12/09/23 aspirin 81 mg tablet,delayed 81 mg PO DAILY 90 days #90 tabs 01/01/24 release theophylline 400 mg 400 mg PO BID 90 days #180 tabs 01/27/24 tablet,extended release 24 hr albuterol sulfate 90 mcg/actuation 2 puff inhalation Q6H PRN for 04/10/24 aerosol inhaler (Ventolin HFA) wheezing #1 ea walker #1 ea 07/14/24 glipizide 5 mg tablet 5 mg PO DAILY #90 tabs 08/05/24 Rollator walker #1 ea 09/16/24 cane #1 ea 09/16/24 esomeprazole magnesium 40 mg 40 mg PO DAILY #30 caps 09/16/24 capsule,delayed release pulse oximeter #1 ea 09/16/24 fexofenadine 180 mg tablet 180 mg PO DAILY #30 tabs 09/17/24 (Elisabeth Allergy) FreeStyle Jemima 3 Plus Sensor #2 ea 09/22/24 (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 sensor) FreeStyle Jemima 3 [place] #1 ea 09/22/24 (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,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,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) glucose 4 gram chewable tablet 16 g (4 x 4 gram) PO Q15M PRN 09/22/24 hypoglycemia #100 tabs tizanidine 4 mg tablet 4 mg PO Q12H PRN muscle spasm 30 09/29/24 days #60 tabs nicotine 21 mg/24 hr daily 1 patch transdermal Q24H #28 ea 10/01/24 transdermal patch acetaminophen 650 mg 650 mg PO Q12H PRN pain 30 days 10/05/24 tablet,extended release #60 tabs gabapentin 800 mg tablet 800 mg PO QID Pain 30 days #120 10/05/24 tabs ibuprofen 800 mg tablet 800 mg PO BID PRN Headache 30 days 10/05/24 #60 tabs tramadol 50 mg tablet 50 mg PO Q6H PRN pain #20 tabs 10/12/24 atorvastatin 20 mg tablet 20 mg PO BEDTIME 90 days #90 tabs 10/13/24 sertraline 100 mg tablet 150 mg (1.5 x 100 mg) PO DAILY 90 10/13/24 days #135 tabs Allergies Allergy/AdvReac Type Severity Reaction Status Date / Time doxycycline Allergy Severe Swelling Verified 10/17/24 03:49 varenicline [From CHANTIX] Allergy Severe ANAPHYLAXIS Verified 10/17/24 03:49 azithromycin Allergy Intermediate Rash Verified 10/17/24 03:49 barium sulfate Allergy Intermediate angioedema Verified 10/17/24 03:49 cetirizine Allergy Mild Rash Verified 10/17/24 03:49 famotidine Allergy Mild Rash Verified 10/17/24 03:49 linaclotide [Linzess] Allergy Mild Rash Verified 10/17/24 03:49 Review of Systems Review of Systems: Constitutional : No Weight loss, No Fever, No Chills, No Night Sweats, No Fatigue, No Malaise ENT/Mouth : No Hearing loss, No Ear Pain, No Nasal Congestion, No Sinus Pain, No Hoarseness, No sore throat, No Rhinorrhea, No Swallowing Difficulty Eyes: No Eye Pain, No Swelling, No Redness, No Foreign Body, No Discharge, No Vision Changes Cardiovascular : No Chest Pain, complaining of dyspnea on exertion, denies palpitations Respiratory : Complaining of cough, sputum production wheezing and shortness of breath Gastrointestinal : No Nausea, No Vomiting, No Diarrhea, No Constipation, No abdominal Pain, No Hematochezia, No Melena Genitourinary : no irregular bleeding, No Dysuria, No Urinary Frequency, No Hematuria, No Urinary Incontinence, No Urgency, No Flank Pain, No Urinary Flow Changes, No Hesitancy Musculoskeletal : No joint pain, No Myalgias, No Joint Swelling Skin : No Skin Lesions, No rash Neuro : No Weakness, No Numbness, No Paresthesias, No Loss of Consciousness, No Dizziness, No Headache Psych : No Anxiety/Panic, No Depression, No SI/HI/AH/VH, No Social Issues, Heme/Lymph: No Bruising, No Bleeding,No Lymphadenopathy Endocrine : No Polyuria, No Polydipsia, No Temperature Intolerance [facility] Past Medical History Medical History HENRY (obstructive sleep apnea) Acute exacerbation of chronic obstructive airways disease Asthma with exacerbation Obesity hypoventilation syndrome COPD (chronic obstructive pulmonary disease) Cocaine use disorder Chronic lung disease Hypoxic respiratory failure Nocturnal hypoxemia Diabetes mellitus COPD exacerbation Crack cocaine use Hyperkalemia Metabolic acidosis Leukocytosis Chest discomfort Chronic renal failure, stage 2 (mild) SOB (shortness of breath) Asthma Smoker Rotator cuff tendonitis GERD (gastroesophageal reflux disease) Chronic idiopathic constipation Bustos's esophagus Depression High triglycerides Gastroparesis Carpal tunnel syndrome of right wrist Nausea & vomiting Hernia Acute and chronic respiratory failure, unspecified whether with hypoxia or hypercapnia HTN (hypertension) Obesity (BMI 30-39.9) Knee pain, bilateral Surgical History History of cholecystectomy (~1988) History of carpal tunnel release Hx of tubal ligation History of pubovaginal sling (~2015) History of umbilical hernia repair (~2001) Hx of section History of open reduction and internal fixation (ORIF) procedure History of esophagogastroduodenoscopy (EGD) Family History Family History Father Heart disease HENRY (obstructive sleep apnea) Family history of breast cancer Mother Asthma Emphysema, unspecified Bronchitis Smoker Alcoholism Bone marrow disease Maternal Grandmother Diabetes Social History Social History Household Members: Family and Other Household Members Other:: sister Housing: House Are you a primary healthcare economics manager to a significant other at home: No Do you presently have visiting nurse or other home services: Yes (vna) Unable to assess alcohol history related to: Unknown Alcohol intake: former Comment: Sleeping Patient Tobacco Use Status: Current everyday Tobacco user Tobacco use type: Cigarette Cigarette Packs Per Day: 1 Cigarettes Per Day: 20.0 Years Smoked: 48 e-Cigarette/Vaping Use: Currently Using Second Hand Smoke Exposure: No Substance Use Type: Crack/Cocaine Advance Directives Date on File: 12/19/23 service: No Current occupational status: disabled 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 Oriented X3. No acute distress. Eyes: Pupils equal, round and reactive to light. ENT: Pharynx normal. Neck: Normal inspection. Neck supple. No lymph nodes noted. No crepitus CVS: Normal heart rate and rhythm. Pulses normal. Normal S1 and S2 Respiratory: No significant wheezing, Abdomen: Soft and nontender. No rigidity. No distention. Skin: Skin warm and dry. Normal skin color. Normal skin turgor. Extremities: No lower extremity edema. No Lacerations. No Rash Neuro: Oriented X 3. No motor deficit. No sensory deficit. Moving all extremities. No slurred speech. CN 2 through 12 grossly intact Psych: calm, cooperative, anxious Course Course Course Narrative: Patient is receiving IV fluids based on ideal weight of 43 kg, patient is obese. Also being given ceftriaxone, in her previous visit. Patient states that she is allergic to azithromycin Patient left against medical advice less than 48 hours ago. Patient known to be noncompliant with her CPAP which she should be using at home at bedtime. Medications Administered Generic Name Dose Route Start Last Admin Trade Name Freq PRN Reason Stop Dose Admin Sodium Chloride 1,500 mls @ 999 mls/hr 10/17/24 03:49 10/17/24 03:56 Ns IVCONT 10/17/24 05:19 999 mls/hr .Q1H31M ONE Administration Discontinued Medications Generic Name Dose Route Start Last Admin Trade Name Freq PRN Reason Stop Dose Admin Ceftriaxone Sodium 1 gm 10/17/24 03:49 10/17/24 03:56 Ceftriaxone Sodium 1 Gm Vial IVPUSH 10/17/24 03:50 1 gm ONCE ONE Administration Medical Decision Making Medical Decision Making [facility] Narrative: Reviewing patient's records, seems that patient has BNP is more elevated than 2 days ago. An echocardiogram was ordered, patient's has diastolic CHF, ejection fraction 40-45%. I discussed with the patient's nurse to stop the fluids at 200 mL bolus, which was running at 999 mL/hour. Patient was treated with ceftriaxone. My interpretation of labs: Patient's white blood cell count 19.1, likely reactive leukocytosis secondary to using steroids for several days. No significant abnormality images chemistry, troponin chronically slightly elevated, BNP 300, elevated from baseline. PH 7.45, pCO2 55 at baseline. Differential Diagnosis Differential Diagnoses: The differential diagnosis associated with the presentation includes (CHF, pneumonia, COPD) Admission/Observation Consideration of admission/observation: Escalation of care including admission/observation considered Consult Healthcare Provider Management of the patient was discussed with: Hospitalist Lab Data [facility] Lab Attestation statement: I reviewed the patient's lab results. 10/17/24 03:46 10/17/24 03:46 Labs: Lab Results 10/17/24 10/17/24 Range/Units 03:46 03:53 WBC 19.1 H (4.8-10.8) X10*3/uL RBC 4.89 (4.20-5.50) X10*6/uL Hgb 11.2 L (12.0-16.0) g/dl Hct 37.3 (37.0-47.0) % MCV 76.3 L (80.0-98.0) fL MCH 22.9 L (27.0-33.0) pg MCHC 30.0 L (31.0-35.0) g/dl RDW 18.6 H (11.0-16.0) % Plt Count 330 (160-400) X10*3/uL MPV 9.1 L (9.4-12.3) fL Immature Gran % (Auto) 0.5 H (0.0-0.4) % Neut % (Auto) 63.3 (45-73) % Lymph % (Auto) 26.6 (20-40) % [place] % (Auto) 8.3 (2-11) % Eos % (Auto) 1.1 (0-4) % Baso % (Auto) 0.2 (0-2) % Lymph # (Auto) 5.1 H (1.2-4.9) X10*3/uL [place] # (Auto) 1.6 H (0.1-1.2) X10*3/uL Eos # (Auto) 0.2 (0.0-0.4) X10*3/uL Baso # (Auto) 0.0 (0.0-0.2) X10*3/uL Abs Immat Gran (auto) 0.10 H (0.00-0.03) X10*3/uL Absolute Neuts (auto) 12.1 H (2.0-8.3) x10*3/uL Absolute Nucleated RBC 0.000 (0.0-0.012) X10*3/uL Nucleated RBC % (auto) 0.0 (0.0-0.2) /100WBC Smear Tech's Comments VERIFIED VBG pH 7.45 H (7.32-7.43) VBG pCO2 55 mmHg VBG pO2 56 mmHg VBG HCO3 39 H (22-26) mmol/L VBG O2 Saturation 88.0 % VBG Base Excess 13.0 mmol/L Sodium 140 (135-145) mmol/L Potassium 4.3 (3.3-5.1) mmol/L Chloride 100 (96-108) mmol/L Carbon Dioxide 30 H (22-29) mmol/L Anion Gap 14 (12-20) BUN 23 H (9-16) mg/dL Creatinine 0.86 (0.5-1.4) mg/dL Estim Creat Clear Calc 66.2 Estimated GFR > 60 Random Glucose 139 H (60-115) mg/dL Lactic Acid 1.5 (0.5-2.0) mmol/L Calcium 9.4 D (8.4-10.2) mg/dL Magnesium 1.7 (1.6-2.6) mg/dL Total Bilirubin 0.2 (0.0-1.0) mg/dL Direct Bilirubin < 0.2 (0.0-0.5) mg/dL AST 20 (5-31) U/L ALT 16 (0-31) U/L Alkaline Phosphatase 99 (39-117) U/L Troponin I High Sens 28.4 H (<3.5-17.0) ng/L B-Natriuretic Peptide 301 H (<100) pg/mL Total Protein 6.3 L (6.5-8.0) g/dL Albumin 3.7 (3.5-5.0) g/dL Independent Interpretation I performed an independent interpretation of an: EKG and Plain X-Ray Independent Historian Clinical information obtained from an independent historian. History obtained from or confirmed by: EMS Critical Care Time Critical Care Time Critical Care Time: Yes Total Critical Care Time: 60 Attestation: I have personally provided critical care time. Time includes review of lab data, radiology results, discussion with consultants, and monitoring for potential decompensation. Intervention performed as documented. Discharge Plan Discharge Clinical Impression: CHF (congestive heart failure) COPD (chronic obstructive pulmonary disease) Qualifiers: COPD type: COPD with acute lower respiratory infection Qualified Code(s): J44.0 - Chronic obstructive pulmonary disease with (acute) lower respiratory infection Patient Disposition: Admitted As Inpatient Prescriptions: No Action (DME) lancets [FreeStyle Lancets] 28 gauge misc See Rx Instructions .ROUTE .MEDSUPPLY Qty: 100 1RF Rx Instructions: Use to check blood sugar daily or if symptomatic hypo/hypergylcemia (DME) 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 meter [FreeStyle Lite Meter] Kit See Rx Instructions .ROUTE .MEDSUPPLY Qty: 1 0RF Rx Instructions: Use to check blood sugar daily or if symptomatic for hypo/hyperglycemia (DME) FreeStyle Lite Strips Strip See Rx Instructions .ROUTE .MEDSUPPLY Qty: 100 1RF Rx Instructions: Use to check blood sugar daily or if symptomatic hypo/hypergylcemia furosemide 20 mg tablet 20 mg PO DAILY Qty: 90 3RF aspirin 81 mg tablet,delayed release (DR/EC) 81 mg PO DAILY 90 Days Qty: 90 1RF theophylline 400 mg tablet extended release 24 hr 400 mg PO BID 90 Days Qty: 180 4RF albuterol sulfate [Ventolin HFA] 90 mcg/actuation HFA aerosol inhaler 2 puff inhalation Q6H PRN (Reason: for wheezing) Qty: 1 6RF glipizide 5 mg tablet 5 mg PO DAILY Qty: 90 1RF (DME) cane Device See Rx Instructions .Route Qty: 1 0RF Rx Instructions: Standard cane (DME) Rollator walker See Rx Instructions .Route .MEDSUPPLY Qty: 1 0RF Rx Instructions: As directed (DME) pulse oximeter See Rx Instructions .Route .MEDSUPPLY Qty: 1 0RF Rx Instructions: As directed fexofenadine [Elisabeth Allergy] 180 mg tablet 180 mg PO DAILY Qty: 30 3RF glucose 4 gram tablet,chewable 16 g PO Q15M MDD 8 tabs PRN (Reason: hypoglycemia) Qty: 100 1RF Rx Instructions: until symptoms of low blood sugar are controlled (DME) FreeStyle Jemima 3 Plus Sensor Device See Rx Instructions .Route Qty: 2 5RF Rx Instructions: To monitor blood sugars 4 times per day. Change sensor every 15 days (DME) FreeStyle Jemima 3 [place] Misc See Rx Instructions .Route Qty: 1 0RF Rx Instructions: To monitor blood sugar 4 times per day tizanidine 4 mg tablet 4 mg PO Q12H PRN (Reason: muscle spasm) 30 Days Qty: 60 0RF Rx Instructions: do not take concurrently with famotidine ibuprofen 800 mg tablet 800 mg PO BID PRN (Reason: Headache) 30 Days Qty: 60 0RF Rx Instructions: please use sparingly due to diabetes acetaminophen 650 mg tablet extended release 650 mg PO Q12H PRN (Reason: pain) 30 Days Qty: 60 0RF gabapentin 800 mg tablet 800 mg PO QID 30 Days Qty: 120 0RF sertraline 100 mg tablet 150 mg PO DAILY 90 Days Qty: 135 0RF atorvastatin 20 mg tablet 20 mg PO BEDTIME 90 Days Qty: 90 0RF calcium carbonate-vitamin D3 500 mg-10 mcg (400 unit) tablet 1 tab PO DAILY albuterol sulfate 2.5 mg /3 mL (0.083 %) solution for nebulization 2.5 mg inhalation Q4H PRN (Reason: Shortness Of Breath/Wheezing) (DME) [facility] Instructions .Route Qty: 1 0RF Rx Instructions: As directed losartan 50 mg tablet 50 mg PO DAILY ipratropium-albuterol 0.5 mg-3 mg(2.5 mg base)/3 mL solution for nebulization 3 ml INHALATION TID Stiolto Respimat 2.5-2.5 mcg/actuation mist 2 puff INHALATION DAILY nicotine 21 mg/24 hr patch 24 hour 1 patch transdermal Q24H Qty: 28 0RF tramadol 50 mg tablet 50 mg PO Q6H PRN (Reason: pain) Qty: 20 0RF esomeprazole magnesium 40 mg capsule,delayed release(DR/EC) 40 mg PO DAILY Qty: 30 3RF Print Language: Persian Sepsis Bolus Exclusion Sepsis Bolus Exclusion CHF/Renal Failure This patient met severe sepsis criteria due to the following condition(s):: Documentation of septic shock (Patient requiring CPAP) In my clinical judgement the administration of 30 ml/kg of crystalloid would be detrimental to this patient due to the patient's following conditions:: Concern for fluid overload Replace the 30 mls/kg with (Zero amount not acceptable and all fluids for severe sepsis must be given at GREATER than 125 mls/hr) Crystalloids amount given in mls: (rate must be at least 150cc/hr): 200 Colloids amount given in mls:: 0
[2024-10-17 03:55] LABS: Basophils Percent Auto 0.2 % (0-2); Eosinophils Absolute Auto 0.2 X10*3/uL (0.0-0.4); Eosinophils Percent Auto 1.1 % (0-4); Hematocrit 37.3 % (37.0-47.0); Hemoglobin 11.2 g/dl (12.0-16.0); Imm Gran Pct Auto 0.5 % (0.0-0.4); Lymphocytes Absolute Auto 5.1 X10*3/uL (1.2-4.9); Lymphocytes Percent Auto 26.6 % (20-40); MANUAL DIFF FLAG SCAN; Mean Corpuscular Hemoglobin 22.9 pg (27.0-33.0); Mean Corpuscular Volume 76.3 fL (80.0-98.0); Mean Platelet Volume 9.1 fL (9.4-12.3); Monocytes Absolute Auto 1.6 X10*3/uL (0.1-1.2); Monocytes Percent Auto 8.3 % (2-11); Neutrophils Absolute Auto 12.1 x10*3/uL (2.0-8.3); Neutrophils Percent Auto 63.3 % (45-73); Platelet Count 330 X10*3/uL (160-400); Red Blood Count 4.89 X10*6/uL (4.20-5.50); Red Cell Distribution Width 18.6 % (11.0-16.0); SCAN SMEAR FLAG 1; White Blood Count 19.1 X10*3/uL (4.8-10.8)
[2024-10-17] MEDS: cefTRIAXone sodium 1 GM VIAL IVPUSH (03:56)
[2024-10-17] MEDS: 0.9 % Sodium Chloride 1,500 ML 999 ML IVCONT (03:56)
[2024-10-17 03:57] LABS: Venous Blood Gas Refer to POC result
[2024-10-17 03:58] LABS: VBG HCO3 39 mmol/L (22-26); VBG pCO2 55 mmHg; VBG pH 7.45 (7.32-7.43); VBG pO2 56 mmHg
[2024-10-17 04:08] LABS: Lactic Acid 1.5 mmol/L (0.5-2.0)
[2024-10-17 04:14] LABS: Troponin-I High Sensitivity 28.4 ng/L (<3.5-17.0)
[2024-10-17 04:15] LABS: B Type Natriuretic Peptide 301 pg/mL (<100)
[2024-10-17 04:17] LABS: Alanine Aminotransferase 16 U/L (0-31); Albumin Level 3.7 g/dL (3.5-5.0); Alkaline Phosphatase 99 U/L (39-117); Anion Gap 14 (12-20); Aspartate Amino Transferase 20 U/L (5-31); Bilirubin Direct < 0.2 mg/dL (0.0-0.5); Bilirubin Total 0.2 mg/dL (0.0-1.0); Blood Urea Nitrogen 23 mg/dL (9-16); Calcium 9.4 mg/dL (8.4-10.2); Carbon Dioxide 30 mmol/L (22-29); Chloride 100 mmol/L (96-108); Creatinine Clr Calc Pharmacy 66.2; Estimated Glomerular Filt Rate > 60; Glucose Random 139 mg/dL (60-115); Magnesium 1.7 mg/dL (1.6-2.6); Potassium 4.3 mmol/L (3.3-5.1); Sodium 140 mmol/L (135-145); Total Protein 6.3 g/dL (6.5-8.0)
[2024-10-17 04:18] LABS: SLIDE REVIEW VERIFIED
[2024-10-17 04:33] LABS: Influenza A PCR NEGATIVE (Negative); Influenza B PCR NEGATIVE (Negative); Resp Syncy Virus RNA Qual PCR NEGATIVE (Negative); SARS COV2 PCR INHOUSE NEGATIVE (Negative)
--- NOTE | 2024-10-17 05:06 | PM.IMHP ---
History of Present Illness Date of Service: 10/17/24 Attending physician on admission: Maureen Coelho Chief Complaint: Dyspnea Patient is a 54-year-old female with past medical history of gar-tcoxlbh-lflodljea diabetes, HENRY, hypertension, hyperlipidemia, COPD/emphysema with current nicotine use 1 pack per day of cigarettes, cocaine abuse, obesity, GERD, Bustos's esophagus follow, UTI with history of sling for her bladder, hernia and history of hernia surgeries with mesh presents to the emergency room via ambulance with complaints of increased dyspnea with increased work of breathing and chest pain. 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 Patient stated it was because her granddaughter was leaving for [place] and she wanted to see her before she left. Patient denies any cocaine use in the interim. Patient has continued to smoke cigarettes. Patient does continue to use oxygen at home, 3 L continuously and was using her BiPAP. Prior to last admission, pt was not using her BIPAP at . VBG 7.45, 55, 39, BE 13 Patient did complete an echocardiogram this past admission which indicated an EF of 40-45% with LVH and no obvious valvular issues. Patient comes in today with a BNP 301, troponin 28.4, CO2 of 30 on BMP. Renal function stable. Patient initially received fluids in the ED 1 L of normal saline and was placed on BiPAP. Telemetry indicated some ST changes an EKG was reviewed with Dr. Haq and noted inferior changes. Patient currently denying chest pain at time of exam. Lung sounds extremely diminished bilaterally with no rhonchi or wheezing noted. Patient had some mild JVD with no lower extremity edema. Patient being admitted with acute hypoxic respiratory failure, COPD exacerbation and now new onset CHF exacerbation. Patient received 40 mg of Lasix IV in the ED. patient remains alert and orientated and chest pain-free. Review of Systems Review of Systems: Patient currently reporting dyspnea at rest but feeling better on BiPAP. Patient currently denies any chest pain, abdominal pain, nausea, vomiting and reports that she is hungry and would like to drink something. Patient denies any lower leg pain or recent falls. Patient denies any crack cocaine use in the interim since leaving on 10/15 from [facility]. Yes all other systems are reviewed and are negative PMFSH Medical History HENRY (obstructive sleep apnea) Acute exacerbation of chronic obstructive airways disease Asthma with exacerbation Obesity hypoventilation syndrome COPD (chronic obstructive pulmonary disease) Cocaine use disorder Chronic lung disease Hypoxic respiratory failure Nocturnal hypoxemia Diabetes mellitus COPD exacerbation Crack cocaine use Hyperkalemia Metabolic acidosis Leukocytosis Chest discomfort Chronic renal failure, stage 2 (mild) SOB (shortness of breath) Asthma Smoker Rotator cuff tendonitis GERD (gastroesophageal reflux disease) Chronic idiopathic constipation Bustos's esophagus Depression High triglycerides Gastroparesis Carpal tunnel syndrome of right wrist Nausea & vomiting Hernia Acute and chronic respiratory failure, unspecified whether with hypoxia or hypercapnia HTN (hypertension) Obesity (BMI 30-39.9) Knee pain, bilateral Functional capacity: independent ambulation Patient : No Family History Father Heart disease HENRY (obstructive sleep apnea) Family history of breast cancer Mother Asthma Emphysema, unspecified Bronchitis Smoker Alcoholism Bone marrow disease Maternal Grandmother Diabetes Surgical History History of cholecystectomy (~1988) History of carpal tunnel release Hx of tubal ligation History of pubovaginal sling (~2015) History of umbilical hernia repair (~2001) Hx of section History of open reduction and internal fixation (ORIF) procedure History of esophagogastroduodenoscopy (EGD) Social History Household Members: Family and Other Household Members Other:: sister Housing: House Are you a primary childcare worker to a significant other at home: No Do you presently have visiting nurse or other home services: Yes (vna) Unable to assess alcohol history related to: Unknown Alcohol intake: former Comment: Sleeping Patient Tobacco Use Status: Current everyday Tobacco user Tobacco use type: Cigarette Cigarette Packs Per Day: 1 Cigarettes Per Day: 20.0 Years Smoked: 48 e-Cigarette/Vaping Use: Currently Using Second Hand Smoke Exposure: No Substance Use Type: Crack/Cocaine Advance Directives: Yes Advance Directives Information Provided: Yes Advance Directives on File: No Advance Directives Date on File: 12/19/23 Patient : No service: No Current occupational status: disabled 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 Ebola Risk: Travel/Contact With Anyone From Affected Area/s: No Has Patient Experienced Ebola Symptoms: No Meds Allergies Allergy/AdvReac Type Severity Reaction Status Date / Time doxycycline Allergy Severe Swelling Verified 10/17/24 03:49 varenicline [From CHANTIX] Allergy Severe ANAPHYLAXIS Verified 10/17/24 03:49 azithromycin Allergy Intermediate Rash Verified 10/17/24 03:49 barium sulfate Allergy Intermediate angioedema Verified 10/17/24 03:49 cetirizine Allergy Mild Rash Verified 10/17/24 03:49 famotidine Allergy Mild Rash Verified 10/17/24 03:49 linaclotide [Linzess] Allergy Mild Rash Verified 10/17/24 03:49 Active Medications: Current Medications Acetaminophen (Acetaminophen 325 Mg Tablet) 650 mg PO Q6H PRN PRN Reason: Pain, Mild 1-3,fever,headache Albuterol/Ipratropium (Albuterol/Iprat 2.5/0.5mg 3 Ml Ampul.Neb) 3 ml INHALE Q4H PRN PRN Reason: Shortness of Breath/Wheezing Calcium Carbonate (Calcium Carbonate 750 Mg Tab.Chew) 750 mg PO Q4H PRN PRN Reason: Heartburn Enoxaparin Sodium (Enoxaparin Sodium 40 Mg/0.4 Ml Syringe) 40 mg SUBCUT Q24H [place] Sodium Chloride (Ns) 1,500 mls @ 999 mls/hr IVCONT .Q1H31M ONE Stop: 10/17/24 05:19 Last Infusion: 10/17/24 04:27 Dose: 0 mls/hr Magnesium Sulfate (Magnesium Sulfate/H2o) 2 gm in 50 mls @ 25 mls/hr IV ONCE ONE Stop: 10/17/24 06:54 Magnesium Hydroxide (Milk Of Magnesia 30 Ml Oral.Susp) 30 ml PO DAILY PRN PRN Reason: Constipation Melatonin (Melatonin 3 Mg Tablet) 6 mg PO BEDTIME PRN PRN Reason: Insomnia Ondansetron HCl (Ondansetron Hcl 4 Mg/2 Ml Vial) 4 mg IVPUSH Q8H PRN PRN Reason: Nausea and Vomiting Senna (Sennosides 8.6 Mg Tablet) 17.2 mg PO BEDTIME FLORENCE Sodium Chloride (0.9 % Sodium Chloride Flush 3 Ml Syringe) 3 ml IVFLUSH QSHIFT FLORENCE Home Medications ?Medication ?Instructions ?Recorded ?Confirmed ?Last Taken ?Type calcium 500 mg (as 1 tab PO DAILY 06/26/24 10/15/24 09/27/24 History carbonate)-vitamin D3 10 mcg (400 unit) tablet albuterol sulfate 2.5 mg/3 mL 2.5 mg inhalation Q4H PRN 07/13/24 10/15/24 Unknown History (0.083 %) solution for nebulization Shortness Of Breath/Wheezing losartan 50 mg tablet 50 mg PO DAILY 07/17/24 10/15/24 09/27/24 History ipratropium 0.5 mg-albuterol 3 mg 3 ml inhalation TID 09/30/24 10/15/24 09/27/24 History (2.5 mg base)/3 mL nebulization soln tiotropium 2.5 mcg-olodaterol 2.5 2 puff inhalation DAILY 09/30/24 10/15/24 09/27/24 History mcg/actuation mist for inhalation (Stiolto Respimat) Physical Exam Vital Signs and Narrative: Vital Signs: Last Vital Signs Temp 98.1 F 10/17/24 03:37 Pulse 96 10/17/24 03:37 Resp 18 10/17/24 03:44 BP 140/117 H 10/17/24 03:37 Pulse Ox 96 10/17/24 03:37 O2 Del Method CPAP 10/17/24 03:37 FiO2 30 10/17/24 03:37 BMI result Body Mass Index 35.1 Alert and orientated X3, on bipap, able to interact and answer questions Neuro: CN II-X11 intact, no deficits, visual acuity intact EYES: PERRLA, EOM intact ENT: hearing intact, no issues with swallowing, uvula midline, lips moist, nares patent no epistaxis Cardiac: S1 S2 tachy 110, no murmur, mild JVD, no edema in Lower ext Pulmonary: lungs diminshed B, no wheezing or rhonchi heard Abdominal: BS active in all 4 quadrants, no guarding, tenderness, rebounding MSK: strength 5/5 upper and lower extremities : no CVA tenderness no bladder distension Extremities: no edema in lower extremities, PT and DP pulses palpable +2 Psych: mood stable, judgement and insight good Skin: no open wounds noted bruising noted CGM under R upper arm Results Labs 10/17/24 03:46 10/17/24 03:46 Labs: Laboratory Results - last 24 hr 10/17/24 10/17/24 03:46 03:53 MCV 76.3 L MCH 22.9 L MCHC 30.0 L RDW 18.6 H Plt Count 330 MPV 9.1 L Immature Gran % (Auto) 0.5 H Neut % (Auto) 63.3 Lymph % (Auto) 26.6 [place] % (Auto) 8.3 Eos % (Auto) 1.1 Baso % (Auto) 0.2 Lymph # (Auto) 5.1 H [place] # (Auto) 1.6 H Eos # (Auto) 0.2 Baso # (Auto) 0.0 Abs Immat Gran (auto) 0.10 H Absolute Neuts (auto) 12.1 H Absolute Nucleated RBC 0.000 Nucleated RBC % (auto) 0.0 Smear Tech's Comments VERIFIED VBG pH 7.45 H VBG pCO2 55 VBG pO2 56 VBG HCO3 39 H VBG O2 Saturation 88.0 VBG Base Excess 13.0 Anion Gap 14 Estim Creat Clear Calc 66.2 Estimated GFR > 60 Random Glucose 139 H Lactic Acid 1.5 Calcium 9.4 D Magnesium 1.7 Total Bilirubin 0.2 Direct Bilirubin < 0.2 AST 20 ALT 16 Alkaline Phosphatase 99 B-Natriuretic Peptide 301 H Total Protein 6.3 L Albumin 3.7 Influenza Type A (PCR) NEGATIVE Influenza Type B (PCR) NEGATIVE RSV RNA Qual (PCR) NEGATIVE SARS-CoV-2 RNA (RT-PCR) NEGATIVE ECG Attestation: I personally reviewed and interpreted this ECG as follows: (S-T changes inferior leads, Qtc WNL, reviewed with Dr Coelho attending ) Assessment and Plan (1) Acute hypoxic respiratory failure: Status: Acute (2) COPD (chronic obstructive pulmonary disease): Qualifiers: COPD type: COPD with acute exacerbation Qualified Code(s): J44.1 - Chronic obstructive pulmonary disease with (acute) exacerbation Status: Acute (3) CHF (congestive heart failure): Qualifiers: Heart failure chronicity: unspecified Heart failure type: unspecified Qualified Code(s): I50.9 - Heart failure, unspecified Status: Acute (4) GERD (gastroesophageal reflux disease): Qualifiers: Esophagitis presence: without esophagitis Qualified Code(s): K21.9 - Gastro-esophageal reflux disease without esophagitis Status: Acute (5) Tobacco abuse: Status: Acute (6) Constipation: Qualifiers: Constipation type: slow transit constipation Qualified Code(s): K59.01 - Slow transit constipation Status: Acute (7) Cocaine abuse: Status: Acute (8) Non-insulin dependent type 2 diabetes mellitus: Status: Acute (9) HENRY (obstructive sleep apnea): Status: Acute Plan Patient is a 54-year-old female with past medical history of nth-mizirtq-nyehcudcc diabetes, HENRY, hypertension, hyperlipidemia, COPD/emphysema with current nicotine use 1 pack per day of cigarettes, cocaine abuse, obesity, GERD, Bustos's esophagus follow, UTI with history of sling for her bladder, hernia and history of hernia surgeries with mesh arrived in the emergency department with complaints of dyspnea and chest pain. Patient was placed on BiPAP and improved with continued mild tachycardia. EKG noted ST changes in inferior leads. Patient was not complaining of chest pain at the time of admission. Troponin 28.4. LA 1.5. Echo done this past admission notes an EF of 40-45% with LVH. This could likely be demand ischemia. EKG was reviewed with Dr. Haq, hospitalist attending. Patient did leave against medical advice on 10/15/2024 from [facility]. Acute hypoxic respiratory failure/ COPD exacerbation/ CHF exacerbation - new onset HFrEF/ EKG indicating ST changes likey demand ischemia -Pt does not meet criteria for SIRS or Sepsis at this time of admission -Continuing BiPAP as hypoxia has resolved, convert to nasal cannula likely in the a.m. -Incentive spirometer -Duo nebs budesonide -Lasix 40 IV x1, Lasix 20 IV BID ordered, potassium 4.3 -Cardiology consulted, echo completed 10/15/24 -low-sodium diet, daily weight, I's and O's, fluid allowance 1500 mls -Trending troponins -Telemetry with continuous pulse ox and CO2 monitoring -repeat EKG in the a.m. -we will continue aspirin and statin once med rec is completed GERD -PPI ordered Tobacco abuse -nicotine patch ordered, patient counseled Constipation -senna, MiraLax p.r.n. Cocaine abuse -patient denies any use since leaving hospital 10/15, no indication for toxicology screen at this time -no indication for cows Rsy-iruffid-luhioipdi diabetes -sliding scale insulin -diabetic diet HENRY -BiPAP currently in place, patient has been using BiPAP at home at night since leaving hospital 10/15 DVT prophylaxis: Lovenox PPI prophylaxis: Omeprazole Med rec pending Patient is a full code Patient requires 3 days of inpatient hospitalization for acute hypoxic respiratory failure with new onset CHF exacerbation patient requires close monitoring due to risk of further clinical decline. Expert consultation with Cardiology ordered. Total time managing care of this patient today: 35 minutes. Quality Stroke Does the patient have a stroke diagnosis?: No Reason for No Anti-thrombotic by Day Two: N/A - Med Ordered VTE Prior VTE?: No VTE Risk Level:: Medical - moderate - high VTE Device Contraindication: N/A - Device Ordered VTE Drug Contraindication: N/A - Med Ordered
[2024-10-17] MEDS: Furosemide 40 MG/4 ML VIAL IVPUSH (05:19)
[2024-10-17] MEDS: Magnesium Sulfate/H2O 2 GM/50 ML PIGGYBACK IV (05:19)
[2024-10-17] MEDS: Enoxaparin Sodium 40 MG/0.4 ML SYRINGE SUBCUT (05:19)
[2024-10-17 05:36] LABS: Cholesterol 156 mg/dL (<200); HDL Cholesterol 61 mg/dL (>40); LDL Cholesterol Calculated 61 mg/dL (<100); Triglycerides 171 mg/dL (<150)
[2024-10-17 05:50] LABS: Free T4 (Free Thyroxine) 1.08 ng/dL (0.71-1.85); Thyroid Stimulating Hormone 1.98 uIU/mL (0.32-4.0)
[2024-10-17 06:48] LABS: Appearance Urine Clear; Color Urine Yellow; Glucose Urine UA Negative (Negative); Leukocyte Esterase Urine Small (1+) (Negative); Nitrite Urine Negative (Negative); PH 6.5 (5.0-9.0); UMIC TRIGGER UA YES; Urine Blood Negative (Negative); Urine Ketones Negative (Negative); Urine Protein Negative (Neg-Trace)
[2024-10-17] MEDS: methylPREDNISolone Sod Succ 40 MG/ML VIAL IVPUSH ×2 (06:57→17:30)
[2024-10-17] MEDS: Omeprazole 20 MG CAPSULE.DR PO (06:57)
[2024-10-17 07:05] LABS: Bacteria Urine None Seen (None Seen); Hyaline Casts Urine 0-2 /LPF (0-2); RBC Urine 0-2 /HPF (0-2); Squamous Epithelial Cell Urine 0-2 /HPF (0-2); WBC Urine 0-5 /HPF (0-5)
[2024-10-17 07:05] LABS: Glucose, Whole Blood 256 mg/dL (60-115)
[2024-10-17 07:06] LABS: Estimated Average Glucose 151 mg/dL; Hemoglobin A1C 151.7318 umol/L; Hemoglobin A1c % 6.9 % (<6.0); Total Hemoglobin (HGBA1C) 2941.3092 umol/L
[2024-10-17 07:10] LABS: Troponin-I High Sensitivity 29.5 ng/L (<3.5-17.0)
[2024-10-17] MEDS: Insulin Lispro 100 UNIT/ML 3 ML VIAL SUBCUT ×4 (07:17→21:37)
[2024-10-17] MEDS: 0.9 % Sodium Chloride Flush 3 ML SYRINGE IVFLUSH ×3 (07:19→21:43)
[2024-10-17] MEDS: Albuterol/Iprat 2.5/0.5MG 3 ML AMPUL.NEB INHALE ×4 (07:58→19:41)
[2024-10-17] MEDS: Budesonide 0.5 MG/2 ML AMPUL.NEB INHALE ×2 (07:58→19:41)
[2024-10-17 08:12] LABS: Amphetamine Screen Urine Not Detected (Not Detect); Barbiturates, Urine Not Detected (Not Detect); Benzodiazepines Screen Urine Not Detected (Not Detect); Buprenorphine Scr Not Detected (Not Detect); Cannabinoid Screen Urine Not Detected (Not Detect); Cocaine Screen Urine POSITIVE (Not Detect); Fentanyl, urine Not Detected (Not Detect); Methadone Screen, Urine Not Detected (Not Detect); Opiate Screen Urine Not Detected (Not Detect); Oxycodone Screen Urine Not Detected (Not Detect); Phencyclidine Screen Urine Not Detected (Not Detect)
--- NOTE | 2024-10-17 09:04 | PHA.MEDREC ---
Pharmacy Consult ? Medication Reconciliation Pharmacy has completed the medication reconciliation. Spoke to pt to confirm meds.
[2024-10-17] MEDS: Furosemide 20 MG/2 ML VIAL IVPUSH ×2 (09:17→16:58)
[2024-10-17] MEDS: Nicotine 21 MG PATCH.TD24 TRANSDERMA (09:18)
[2024-10-17] MEDS: Potassium Chloride ER 20 MEQ TAB.ER.PRT PO (09:21)
[2024-10-17 09:36] LABS: Glucose, Whole Blood 269 mg/dL (60-115)
--- NOTE | 2024-10-17 10:49 | PM.CNCAR ---
History of Present Illness History of Present Illness Date of Service: 10/17/24 Requesting physician: Vandana Cline Consult reason: other (Acute hypoxemic respiratory failure) Chief complaint: Dyspnea Narrative: I was consulted to see Estela in cardiology consultation today as patient present with worsening shortness of breath and was noted to be in COPD exacerbation as well as elevated BNP and findings suggestive of congestive heart failure. Patient has been diuresed and since yesterday says feels a lot better. Continues to be short of breath. Actually when I walked into the room she was dozing off while eating. She says she has longstanding history of COPD with chronic respiratory failure on oxygen therapy at home. She also has truncal obesity along with significant obstructive sleep apnea for which she uses BiPAP at nighttime. She follows with Pulmonary here. She was prior history of significant smoking continues to smoke, diabetes, esophageal dysmotility this order, cocaine use. Patient presented to the hospital with as mentioned above with significant shortness of breath. She was no prior known coronary disease. She had signed herself out against medical advise few days ago and at that time she had an echocardiogram done which had shown reduced LV ejection fraction 40-45% with regional wall motion abnormality which could suggest stress-induced cardiomyopathy. She has no known history of coronary artery disease as per her. Review of Systems Constitutional: Constitutional: Reports no additional constitutional complaints Cardiovascular: Cardiovascular: Denies chest pain, Denies leg edema, Denies lightheadedness, Denies Loss of Consciousness, Denies palpitations, Reports dyspnea and Reports dyspnea on exertion Respiratory: Respiratory: Reports cough, Reports dyspnea, Reports dyspnea on exertion and Reports wheezing Gastrointestinal: Gastrointestinal: Reports dyspepsia Genitourinary: Genitourinary: Reports no additional female genitourinary complaints Musculoskeletal: Musculoskeletal: Reports no additional musculoskeletal complaints Integumentary/Breasts: Skin/Breast: Reports system reviewed and no additional complaints, except as docu Neurologic: Reports system reviewed and no additional complaints, except as documented Psychiatric: Psychiatric: Reports no additional psychiatric complaints Endocrine: Endocrine: Denies palpitations Allergic/Immunologic: Allergic/Immunologic: Reports wheezing PMFSH Past Medical History Medical History HENRY (obstructive sleep apnea) Acute exacerbation of chronic obstructive airways disease Asthma with exacerbation Obesity hypoventilation syndrome COPD (chronic obstructive pulmonary disease) Cocaine use disorder Chronic lung disease Hypoxic respiratory failure Nocturnal hypoxemia Diabetes mellitus COPD exacerbation Crack cocaine use Hyperkalemia Metabolic acidosis Leukocytosis Chest discomfort Chronic renal failure, stage 2 (mild) SOB (shortness of breath) Asthma Smoker Rotator cuff tendonitis GERD (gastroesophageal reflux disease) Chronic idiopathic constipation Bustos's esophagus Depression High triglycerides Gastroparesis Carpal tunnel syndrome of right wrist Nausea & vomiting Hernia Acute and chronic respiratory failure, unspecified whether with hypoxia or hypercapnia HTN (hypertension) Obesity (BMI 30-39.9) Knee pain, bilateral Family History Family History Father Heart disease HENRY (obstructive sleep apnea) Family history of breast cancer Mother Asthma Emphysema, unspecified Bronchitis Smoker Alcoholism Bone marrow disease Maternal Grandmother Diabetes Surgical History Surgical History History of cholecystectomy (~1988) History of carpal tunnel release Hx of tubal ligation History of pubovaginal sling (~2015) History of umbilical hernia repair (~2001) Hx of section History of open reduction and internal fixation (ORIF) procedure History of esophagogastroduodenoscopy (EGD) Social History Social History Household Members: Family and Other Household Members Other:: sister Housing: House Are you a primary foster care therapist to a significant other at home: No Do you presently have visiting nurse or other home services: Yes (vna) Unable to assess alcohol history related to: Unknown Alcohol intake: former Comment: Sleeping Patient Tobacco Use Status: Current everyday Tobacco user Tobacco use type: Cigarette Cigarette Packs Per Day: 1 Cigarettes Per Day: 20.0 Years Smoked: 48 e-Cigarette/Vaping Use: Currently Using Second Hand Smoke Exposure: No Substance Use Type: Crack/Cocaine Advance Directives Date on File: 12/19/23 service: No Current occupational status: disabled 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 Travel History Ebola Risk: Travel/Contact With Anyone From Affected Area/s: No Has Patient Experienced Ebola Symptoms: No Meds Allergies Allergy/AdvReac Type Severity Reaction Status Date / Time doxycycline Allergy Severe Swelling Verified 10/17/24 03:49 varenicline [From CHANTIX] Allergy Severe ANAPHYLAXIS Verified 10/17/24 03:49 azithromycin Allergy Intermediate Rash Verified 10/17/24 03:49 barium sulfate Allergy Intermediate angioedema Verified 10/17/24 03:49 cetirizine Allergy Mild Rash Verified 10/17/24 03:49 famotidine Allergy Mild Rash Verified 10/17/24 03:49 linaclotide [Linzess] Allergy Mild Rash Verified 10/17/24 03:49 Active Medications: Current Medications Acetaminophen (Acetaminophen 325 Mg Tablet) 650 mg PO Q6H PRN PRN Reason: Pain, Mild 1-3,fever,headache Albuterol/Ipratropium (Albuterol/Iprat 2.5/0.5mg 3 Ml Ampul.Neb) 3 ml INHALE Q4H PRN PRN Reason: Shortness of Breath/Wheezing Albuterol/Ipratropium (Albuterol/Iprat 2.5/0.5mg 3 Ml Ampul.Neb) 3 ml INHALE RQ4H WHILE AWAKE [facility] Last Admin: 10/17/24 07:58 Dose: 3 ml Aspirin (Aspirin Enteric Coated 81 Mg Tablet.Dr) 81 mg PO DAILY [facility] Atorvastatin Calcium (Atorvastatin Calcium 20 Mg Tablet) 20 mg PO BEDTIME [facility] Budesonide (Budesonide 0.5 Mg/2 Ml Ampul.Neb) 0.5 mg INHALE RBID [facility] Last Admin: 10/17/24 07:58 Dose: 0.5 mg Calcium Carbonate (Calcium Carbonate 750 Mg Tab.Chew) 750 mg PO Q4H PRN PRN Reason: Heartburn Dextrose (Dextrose 50 % 25 Gm/50 Ml Syringe) 25 gm IVPUSH Q15M PRN; Protocol PRN Reason: per Hypoglycemia Standing Ord. Enoxaparin Sodium (Enoxaparin Sodium 40 Mg/0.4 Ml Syringe) 40 mg SUBCUT Q24H [facility] Last Admin: 10/17/24 05:19 Dose: 40 mg Furosemide (Furosemide 20 Mg/2 Ml Vial) 20 mg IVPUSH BID@0900,1800 [facility]; Protocol Last Admin: 10/17/24 09:17 Dose: 20 mg Gabapentin (Gabapentin 400 Mg Capsule) 800 mg PO QID PRN PRN Reason: Pain, Severe (Pain Scale 7-10) Glucose (Glucose Gel 15 Gm Gel..Gram.) 15 gm PO Q15M PRN; Protocol PRN Reason: per Hypoglycemia Standing Ord. Insulin Human Lispro (Insulin Lispro 100 Unit/Ml 3 Ml Vial) 0 unit SUBCUT QIDACHS [facility]; Protocol Last Admin: 10/17/24 07:17 Dose: 6 unit Loratadine (Loratadine 10 Mg Tablet) 10 mg PO DAILY [facility] Losartan Potassium (Losartan Potassium 50 Mg Tablet) 50 mg PO DAILY [facility]; Protocol Magnesium Hydroxide (Milk Of Magnesia 30 Ml Oral.Susp) 30 ml PO DAILY PRN PRN Reason: Constipation Melatonin (Melatonin 3 Mg Tablet) 6 mg PO BEDTIME PRN PRN Reason: Insomnia Methylprednisolone Sodium Succinate (Methylprednisolone Sod Succ 40 Mg/Ml Vial) 40 mg IVPUSH Q12H [facility] Last Admin: 10/17/24 06:57 Dose: 40 mg Nicotine (Nicotine 21 Mg Patch.Td24) 21 mg TRANSDERMA DAILY [facility] Last Admin: 10/17/24 09:18 Dose: 21 mg Omeprazole (Omeprazole 20 Mg Capsule.Dr) 20 mg PO DAILY@0630 [facility] Last Admin: 10/17/24 06:57 Dose: 20 mg Ondansetron HCl (Ondansetron Hcl 4 Mg/2 Ml Vial) 4 mg IVPUSH Q8H PRN PRN Reason: Nausea and Vomiting Polyethylene Glycol (Polyethylene Glycol 3350 17 Gm Powd.Pack) 17 gm PO DAILY PRN PRN Reason: Constipation Potassium Chloride (Potassium Chloride Er 20 Meq Tab.Er.Prt) 20 meq PO DAILY [facility] Last Admin: 10/17/24 09:21 Dose: 20 meq Senna (Sennosides 8.6 Mg Tablet) 17.2 mg PO BEDTIME [facility] Sertraline HCl (Sertraline Hcl 50 Mg Tablet) 150 mg PO DAILY [facility] Sodium Chloride (0.9 % Sodium Chloride Flush 3 Ml Syringe) 3 ml IVFLUSH QSHIFT [facility] Last Admin: 10/17/24 07:19 Dose: 3 ml Theophylline (Theophylline Anhydrous Er 400 Mg Tab.Er.24h) 400 mg PO BID [facility] Tizanidine HCl (Tizanidine Hcl 4 Mg Tablet) 4 mg PO Q12H PRN PRN Reason: muscle spasm Tramadol HCl (Tramadol Hcl 50 Mg Tablet) 50 mg PO Q6H PRN PRN Reason: Pain, Moderate(Pain Scale 4-6) Home Medications ?Medication ?Instructions ?Recorded ?Confirmed ?Last Taken ?Type calcium 500 mg (as 1 tab PO DAILY 06/26/24 10/17/24 10/15/24 History carbonate)-vitamin D3 10 mcg (400 unit) tablet albuterol sulfate 2.5 mg/3 mL 2.5 mg inhalation Q4H PRN 07/13/24 10/17/24 Unknown History (0.083 %) solution for nebulization Shortness Of Breath/Wheezing losartan 50 mg tablet 50 mg PO DAILY 07/17/24 10/17/24 10/15/24 History ipratropium 0.5 mg-albuterol 3 mg 3 ml inhalation TID 09/30/24 10/17/24 10/15/24 History (2.5 mg base)/3 mL nebulization soln tiotropium 2.5 mcg-olodaterol 2.5 2 puff inhalation DAILY 09/30/24 10/17/24 10/15/24 History mcg/actuation mist for inhalation (Stiolto Respimat) esomeprazole magnesium 40 mg 40 mg PO DAILY@0630 10/17/24 10/17/24 10/15/24 History capsule,delayed release Physical Exam Vital Signs: Vital Signs: Last Vital Signs Temp 96.4 F L 10/17/24 08:53 Pulse 99 10/17/24 08:53 Resp 20 10/17/24 08:53 BP 122/81 10/17/24 08:53 Pulse Ox 98 10/17/24 08:53 O2 Del Method Nasal Cannula 10/17/24 08:53 O2 Flow Rate 1 10/17/24 08:53 FiO2 30 10/17/24 03:37 BMI result Body Mass Index 35.1 Const: General: cooperative, comfortable, alert, awake, in distress mild and other (Sleepy) Nutritional Appearance: obese Orientation/consciousness: patient oriented x3 HEENT: Head: Yes normocephalic and Yes atraumatic Neck: Neck: Yes trachea midline, Yes supple and Yes no JVD Resp: Effort & Inspection: normal respiratory effort Auscultation: crackles on the right at the base, rhonchi and diminished lung sounds Cardio: Rate: regular rate Rhythm: regular rhythm Heart sounds: S1 normal heart sound present, S2 normal heart sound present, no click, no gallops and no murmurs GI: Auscultation: normal bowel sounds Skin: General skin exam: no rashes or lesions noted Neuro: General: patient oriented x3 and no focal motor deficits Extrem: General: Yes no clubbing, cyanosis or edema Objective Labs and Meds 10/17/24 03:46 10/17/24 03:46 Lab results: Laboratory Results - last 24 hr 10/17/24 10/17/24 10/17/24 03:46 03:53 06:40 WBC 19.1 H RBC 4.89 Hgb 11.2 L Hct 37.3 MCV 76.3 L MCH 22.9 L MCHC 30.0 L RDW 18.6 H Plt Count 330 MPV 9.1 L Immature Gran % (Auto) 0.5 H Neut % (Auto) 63.3 Lymph % (Auto) 26.6 Cooper % (Auto) 8.3 Eos % (Auto) 1.1 Baso % (Auto) 0.2 Lymph # (Auto) 5.1 H Cooper # (Auto) 1.6 H Eos # (Auto) 0.2 Baso # (Auto) 0.0 Abs Immat Gran (auto) 0.10 H Absolute Neuts (auto) 12.1 H Absolute Nucleated RBC 0.000 Nucleated RBC % (auto) 0.0 Smear Tech's Comments VERIFIED Hold Purple Top VBG pH 7.45 H VBG pCO2 55 VBG pO2 56 VBG HCO3 39 H VBG O2 Saturation 88.0 VBG Base Excess 13.0 Sodium 140 Potassium 4.3 Chloride 100 Carbon Dioxide 30 H Anion Gap 14 BUN 23 H Creatinine 0.86 Estim Creat Clear Calc 66.2 Estimated GFR > 60 POC Glucose Random Glucose 139 H Estimat Average Glucose 151 Hemoglobin A1c % 6.9 H Lactic Acid 1.5 Calcium 9.4 D Magnesium 1.7 Total Bilirubin 0.2 Direct Bilirubin < 0.2 AST 20 ALT 16 Alkaline Phosphatase 99 Troponin I High Sens 28.4 H B-Natriuretic Peptide 301 H Total Protein 6.3 L Albumin 3.7 Triglycerides 171 H Cholesterol 156 LDL Cholesterol, Calc 61 HDL Cholesterol 61 TSH 1.98 Free T4 1.08 Urine Color Yellow Urine Appearance Clear Urine pH 6.5 Ur Specific [place] 1.010 Urine Protein Negative Urine Glucose (UA) Negative Urine Ketones Negative Urine Blood Negative Urine Nitrite Negative Ur Leukocyte Esterase Small (1+) H Urine RBC 0-2 Urine WBC 0-5 Ur Squamous Epith Cells 0-2 Urine Bacteria None Seen Hyaline Casts 0-2 Urine Opiates Screen Not Detected Ur Buprenorphine Scrn Not Detected Ur Oxycodone Screen Not Detected Urine Methadone Screen Not Detected Urine Fentanyl Screen Not Detected Ur Barbiturates Screen Not Detected Ur Phencyclidine Scrn Not Detected Ur Amphetamines Screen Not Detected U Benzodiazepines Scrn Not Detected Urine Cocaine Screen POSITIVE H U Marijuana (THC) Screen Not Detected Influenza Type A (PCR) NEGATIVE Influenza Type B (PCR) NEGATIVE RSV RNA Qual (PCR) NEGATIVE SARS-CoV-2 RNA (RT-PCR) NEGATIVE 10/17/24 10/17/24 10/17/24 06:46 06:59 09:30 WBC RBC Hgb Hct MCV MCH MCHC RDW Plt Count MPV Immature Gran % (Auto) Neut % (Auto) Lymph % (Auto) Cooper % (Auto) Eos % (Auto) Baso % (Auto) Lymph # (Auto) Cooper # (Auto) Eos # (Auto) Baso # (Auto) Abs Immat Gran (auto) Absolute Neuts (auto) Absolute Nucleated RBC Nucleated RBC % (auto) Smear Tech's Comments Hold Purple Top SEE NOTE VBG pH VBG pCO2 VBG pO2 VBG HCO3 VBG O2 Saturation VBG Base Excess Sodium Potassium Chloride Carbon Dioxide Anion Gap BUN Creatinine Estim Creat Clear Calc Estimated GFR POC Glucose 256 H 269 H Random Glucose Estimat Average Glucose Hemoglobin A1c % Lactic Acid Calcium Magnesium Total Bilirubin Direct Bilirubin AST ALT Alkaline Phosphatase Troponin I High Sens 29.5 H B-Natriuretic Peptide Total Protein Albumin Triglycerides Cholesterol LDL Cholesterol, Calc HDL Cholesterol TSH Free T4 Urine Color Urine Appearance Urine pH Ur Specific [place] Urine Protein Urine Glucose (UA) Urine Ketones Urine Blood Urine Nitrite Ur Leukocyte Esterase Urine RBC Urine WBC Ur Squamous Epith Cells Urine Bacteria Hyaline Casts Urine Opiates Screen Ur Buprenorphine Scrn Ur Oxycodone Screen Urine Methadone Screen Urine Fentanyl Screen Ur Barbiturates Screen Ur Phencyclidine Scrn Ur Amphetamines Screen U Benzodiazepines Scrn Urine Cocaine Screen U Marijuana (THC) Screen Influenza Type A (PCR) Influenza Type B (PCR) RSV RNA Qual (PCR) SARS-CoV-2 RNA (RT-PCR) Assessment and Plan (1) Acute hypoxemic respiratory failure: Status: Acute Patient presents with acute hypoxemic respiratory failure which appears to be multifactorial. There was a small component of congestive heart failure although elevated BNP also could be related to RV strain from acute hypoxemic respiratory failure. She does not appear to be clinically markedly fluid overloaded at this point time. She does have LV systolic dysfunction with LVEF of 40-45% suggestive of stress-induced cardiomyopathy although underlying obstructive coronary artery disease can not be ruled out. She will need ischemic workup once she was stabilized from pulmonary perspective. Will continue aggressively treat her bronchospastic airway disease. Gentle diuresis. Strict intake and output chart needs to be pursued. Continue losartan therapy for neurohormonal modulation. Hold off on metoprolol therapy given her significant bronchospastic airway disease. I would also prescribe her aspirin high-intensity statin therapy. Continue supportive care. Continue BiPAP therapy for a significant hypoventilation syndrome. She appears to be markedly sleepy even while eating and appears to have probably undertreated sleep apnea. Complete smoking cessation was advised to her. Avoidance of cocaine use was discussed as well. Will sign of the case and follow if need be. Will set up for outpatient ischemic workup Procedures Date of Service Date of Service: 10/17/24
[2024-10-17 11:01] LABS: Glucose, Whole Blood 321 mg/dL (60-115)
[2024-10-17] MEDS: Sertraline HCL 50 MG TABLET 150 MG PO (12:13)
[2024-10-17] MEDS: Gabapentin 400 MG CAPSULE 800 MG PO ×3 (12:14→21:37)
[2024-10-17 15:47] LABS: Glucose, Whole Blood 195 mg/dL (60-115)
--- NOTE | 2024-10-17 16:06 | P.EN_ITS ---
Event Note Date of Service: 10/17/24 Event Note: seen and examined this morning follow up for copd/chf left ama 10/15 awake, alert; denies sob This is atient is a 54-year-old female with past medical history of [id number] diabetes, HENRY, hypertension, hyperlipidemia, COPD/emphysema with current nicotine use 1 pack per day of cigarettes, cocaine abuse, obesity, GERD, Bustos's esophagus follow, UTI with history of sling for her bladder, hernia and history of hernia surgeries with mesh arrived in the emergency department with complaints of dyspnea and chest pain. Patient was placed on BiPAP and improved with continued mild tachycardia. EKG noted ST changes in inferior leads. Patient was not complaining of chest pain at the time of admission. Troponin 28.4. LA 1.5. Echo done this past admission notes an EF of 40-45% with LVH. This could likely be demand ischemia. EKG was reviewed with Dr. Haq, hospitalist attending. Patient did leave against medical advice on 10/15/2024 from [facility]. Acute hypoxic respiratory failureCHF exacerbation - new onset HFrEF/ EKG indicat ing ST changes likey demand ischemia echo completed 10/15/24-showing EF 40-45% with regional wall motion abnormality consider myopathy continue Lasix 20 IV BID low-sodium diet, daily weight, I's and O's, fluid allowance 1500 mls continue aspirin and statin Seen by cardiology-recommend outpatient ischemic workup Acute COPD exacerbation Continue steroids Continue breathing treatments Continue supplemental oxygen as needed-uses oxygen at baseline Continue BiPAP at night Tobacco dependence Smoking cessation advised Continue NRT HENRY resume BiPAP as above Bwh-mdzgxlo-[id number] type 2 diabetes Sliding scale insulin Diabetic diet Cocaine abuse Last use 5 days prior, patient counseled Patient deferred need to speak with addictions Constipation Patient having issues with straining and moving bowels regularly. Bowel regimen GERD/ Dysphagia with known Barretts esopahgus PPI ordered Morbid obesity BMI 5.2 Contributing to HENRY/chronic breathing issues Weight loss encouraged Time Spent With Patient Time: Total time managing care of this patient today ____ minutes.
[2024-10-17 21:08] LABS: Glucose, Whole Blood 233 mg/dL (60-115)
[2024-10-17] MEDS: Sennosides 8.6 MG TABLET 17.2 MG PO (21:37)
[2024-10-17] MEDS: Atorvastatin Calcium 40 MG TABLET PO (21:37)
[2024-10-17] MEDS: Theophylline Anhydrous ER 400 MG TAB.ER.24H PO (21:37)
[2024-10-17] MEDS: traMADoL HCL 50 MG TABLET PO (21:43)
[2024-10-18] VITALS (7 sets, daily range): BP systolic 134–160; BP diastolic 67–89; PULSE 78–100; RESP 18–20; TEMP 36.2–36.5; O2SAT 90–98
[2024-10-18] MEDS: Omeprazole 20 MG CAPSULE.DR PO (06:10)
[2024-10-18] MEDS: methylPREDNISolone Sod Succ 40 MG/ML VIAL IVPUSH (06:10)
[2024-10-18] MEDS: Enoxaparin Sodium 40 MG/0.4 ML SYRINGE SUBCUT (06:11)
[2024-10-18] MEDS: traMADoL HCL 50 MG TABLET PO (06:17)
[2024-10-18 06:48] LABS: MANUAL DIFF FLAG NO
[2024-10-18 06:53] LABS: Basophils Percent Auto 0.1 % (0-2); Eosinophils Percent Auto 0.1 % (0-4); Hematocrit 37.5 % (37.0-47.0); Imm Gran Abs Auto 0.09 X10*3/uL (0.00-0.03); Imm Gran Pct Auto 0.5 % (0.0-0.4); Lymphocytes Absolute Auto 1.7 X10*3/uL (1.2-4.9); Lymphocytes Percent Auto 10.2 % (20-40); Mean Corpuscular HGB Conc 29.3 g/dl (31.0-35.0); Mean Corpuscular Hemoglobin 22.7 pg (27.0-33.0); Mean Corpuscular Volume 77.5 fL (80.0-98.0); Mean Platelet Volume 9.5 fL (9.4-12.3); Monocytes Absolute Auto 1.2 X10*3/uL (0.1-1.2); Monocytes Percent Auto 6.8 % (2-11); Neutrophils Absolute Auto 13.9 x10*3/uL (2.0-8.3); Neutrophils Percent Auto 82.3 % (45-73); Platelet Count 373 X10*3/uL (160-400); Red Blood Count 4.84 X10*6/uL (4.20-5.50); Red Cell Distribution Width 18.6 % (11.0-16.0); White Blood Count 16.9 X10*3/uL (4.8-10.8)
[2024-10-18 07:10] LABS: Anion Gap 17 (12-20); Blood Urea Nitrogen 32 mg/dL (9-16); Calcium 9.4 mg/dL (8.4-10.2); Carbon Dioxide 28 mmol/L (22-29); Chloride 100 mmol/L (96-108); Creatinine Clr Calc Pharmacy 72.5; Estimated Glomerular Filt Rate > 60; Glucose Random 203 mg/dL (60-115); Potassium 4.2 mmol/L (3.3-5.1); Sodium 141 mmol/L (135-145)
[2024-10-18] MEDS: Albuterol/Iprat 2.5/0.5MG 3 ML AMPUL.NEB INHALE ×2 (07:24→11:26)
[2024-10-18] MEDS: Budesonide 0.5 MG/2 ML AMPUL.NEB INHALE (07:24)
--- NOTE | 2024-10-18 08:45 | P.DS_ITS ---
DS: Providers Provider Date of Service: 10/18/24 Date of admission: 10/17/24 05:01 Date of discharge: 10/18/24 Primary care physician: Unknown Physician Consults: 10/17/24 05:04 Consult to Cardiology Routine Consulting Provider: [facility] Reason for consultation: new onset CHF, abnormal ECG Has provider been notified: No Attending physician on discharge: John Andrade Discharging clinician: Vandana Cline DS: Diagnosis Discharge Diagnosis (1) Acute hypoxemic respiratory failure: Status: Acute DS: Summary Hospital Course Hospital Course: From H&P on the day of admission Patient is a 54-year-old female with past medical history of [id number] diabetes, HENRY, hypertension, hyperlipidemia, COPD/emphysema with current nicotine use 1 pack per day of cigarettes, cocaine abuse, obesity, GERD, Bustos's esophagus follow, UTI with history of sling for her bladder, hernia and history of hernia surgeries with mesh presents to the emergency room via ambulance with complaints of increased dyspnea with increased work of breathing and chest pain. Patient was recently admitted for dyspnea and left against behavioral medical director on 10/15. Patient stated it was because her granddaughter was leaving for [place] and she wanted to see her before she left. Patient denies any cocaine use in the interim. Patient has continued to smoke cigarettes. Patient does continue to use oxygen at home, 3 L continuously and was using her BiPAP. Prior to last admission, pt was not using her BIPAP at . VBG 7.45, 55, 39, BE 13 Patient did complete an echocardiogram this past admission which indicated an EF of 40-45% with LVH and no obvious valvular issues. Patient comes in today with a BNP 301, troponin 28.4, CO2 of 30 on BMP. Renal function stable. Patient initially received fluids in the ED 1 L of normal saline and was placed on BiPAP. Telemetry indicated some ST changes an EKG was reviewed with Dr. Haq and noted inferior changes. Patient currently denying chest pain at time of exam. Lung sounds extremely diminished bilaterally with no rhonchi or wheezing noted. Patient had some mild JVD with no lower extremity edema. Patient being admitted with acute hypoxic respiratory failure, COPD exacerbation and now new onset CHF exacerbation. Patient received 40 mg of Lasix IV in the ED. patient remains alert and orientated and chest pain-free. Acute hypoxic respiratory failure due to CHF exacerbation - new onset HFrEF. EKG indicating ST changes likely demand ischemia. echo com pleted 10/15/24 before the patient left AMA showing EF 40-45% with regional wall motion abnormality consistent with stress induced cardiomyopathy. She was admitted to the hospital and treated with gentle diuresis with IV Lasix. She was continued on aspirin and her dose of statin was increased. She was seen by the voice instructor who did not feel that she was in florid heart failure but could benefit from some gentle diuresis. Cardiology recommended outpatient ischemic workup to rule out underlying coronary artery disease. Avoid beta-evelin for now given history of chronic lung disease and risk for bronchospasm. CHF education provided. continue current dose of lasix. Acute COPD exacerbation Treated with systemic steroids and breathing treatments and continued on baseline supplemental oxygen and BiPAP at night. Patient's respiratory status improved quickly overnight and she is on room air and eager to return home. She used cocaine prior to coming to the hospital, her tox screen was positive for the same. cocaine has been trigger on many previous admissions. The importance of tobacco cessation and cessation of cocaine use and how cocaine can affect the body including the heart and the lungs was discussed in detail. She has been seen by addiction Medicine in the past and reports having resources. She does not want to stay in the hospital to be evaluated by the Addiction medicine service again. 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 She can [facility]. Tobacco dependence Smoking cessation advised. Continued on nicotine replacement therapy. leukocytosis. due to recent steroid use. no evidence of sepsis. Time Attestation Discharge Coordination Time (in mins): 35 Quality: Safe Use of Opioids Does Pt have an Active Cancer Diagnosis on the Problem List?: No Quality: Stroke Does the patient have a stroke diagnosis?: No Physical Exam Vital Signs: Vital Signs: Last Vital Signs Temp 97.2 F 10/18/24 07:25 Pulse 100 10/18/24 07:26 Resp 18 10/18/24 07:26 BP 135/68 10/18/24 07:25 Pulse Ox 92 10/18/24 07:25 O2 Del Method Room Air 10/18/24 07:25 O2 Flow Rate 0.5 10/17/24 10:51 FiO2 30 10/17/24 03:37 BMI result Body Mass Index 33.9 Const: General: cooperative, comfortable, no acute distress, alert and awake Nutritional Appearance: obese Orientation/consciousness: patient oriented x3 Resp: Effort & Inspection: normal respiratory effort, able to speak in complete sentences, no respiratory distress and no use of accessory muscles Auscultation: clear to auscultation bilaterally Cardio: Rate: regular rate GI: Inspection: No distended Palpation (GI): Soft to palpation and nontender Neuro: General: patient oriented x3, moves all extremities and CN's II-XI intact bilaterally DS: Data Data Completed and Pending Completed studies during hospitalization [Text1]: Procedures Assistance with Respiratory Ventilation, Less than 24 Consecutive Hours, Continuous Positive Airway Pressure (09/30/24) Insertion of Endotracheal Airway into Trachea, Via Natural or Artificial Opening (11/03/20) Insertion of Infusion Device into Superior Vena Cava, Percutaneous Approach (11/03/20) Respiratory Ventilation, Less than 24 Consecutive Hours (11/03/20) Labs on day of discharge: Laboratory Results - last 24 hr 10/17/24 10/17/24 10/17/24 09:30 10:50 15:42 WBC RBC Hgb Hct MCV MCH MCHC RDW Plt Count MPV Immature Gran % (Auto) Neut % (Auto) Lymph % (Auto) [place] % (Auto) Eos % (Auto) Baso % (Auto) Lymph # (Auto) [place] # (Auto) Eos # (Auto) Baso # (Auto) Abs Immat Gran (auto) Absolute Neuts (auto) Absolute Nucleated RBC Nucleated RBC % (auto) Sodium Potassium Chloride Carbon Dioxide Anion Gap BUN Creatinine Estim Creat Clear Calc Estimated GFR POC Glucose 269 H 321 H 195 H Random Glucose Calcium 10/17/24 10/18/24 21:00 06:17 WBC 16.9 H RBC 4.84 Hgb 11.0 L Hct 37.5 MCV 77.5 L MCH 22.7 L MCHC 29.3 L RDW 18.6 H Plt Count 373 MPV 9.5 Immature Gran % (Auto) 0.5 H Neut % (Auto) 82.3 H Lymph % (Auto) 10.2 L [place] % (Auto) 6.8 Eos % (Auto) 0.1 Baso % (Auto) 0.1 Lymph # (Auto) 1.7 [place] # (Auto) 1.2 Eos # (Auto) 0.0 Baso # (Auto) 0.0 Abs Immat Gran (auto) 0.09 H Absolute Neuts (auto) 13.9 H Absolute Nucleated RBC 0.000 Nucleated RBC % (auto) 0.0 Sodium 141 Potassium 4.2 Chloride 100 Carbon Dioxide 28 Anion Gap 17 BUN 32 H Creatinine 0.77 Estim Creat Clear Calc 72.5 Estimated GFR > 60 POC Glucose 233 H Random Glucose 203 H Calcium 9.4 Preliminary micro results at discharge 10/17/24 03:46 Blood Culture - Preliminary Blood - Venous No growth after 24 hours. 10/17/24 03:46 Blood Culture - Preliminary Blood - Venous No growth after 24 hours. Discharge Plan Discharge Anticipated Discharge Date/Time: 10/18/24 08:57 Patient Disposition: Home, Self-Care Discharge Diagnosis: Acute respiratory failure due to new onset CHF and acute COPD exacerbation in the setting of cocaine use Referrals: Richa Winston CNP [Nurse Practitioner] - 1 Week Ignacio Cintron MD [Physician] - 1 Week Physician,Cheri Tavarez [Primary Care Provider] - 1 Week Discharge Medications: New prednisone 20 mg tablet 40 mg PO DAILY 5 Days Qty: 10 0RF atorvastatin 40 mg tablet 40 mg PO BEDTIME Qty: 90 0RF Continued (DME) lancets [FreeStyle Lancets] 28 gauge misc See Rx Instructions .ROUTE .MEDSUPPLY Qty: 100 1RF Rx Instructions: Use to check blood sugar daily or if symptomatic hypo/hypergylcemia (DME) 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 meter [FreeStyle Lite Meter] Kit See Rx Instructions .ROUTE .MEDSUPPLY Qty: 1 0RF Rx Instructions: Use to check blood sugar daily or if symptomatic for hypo/hyperglycemia (DME) FreeStyle Lite Strips Strip See Rx Instructions .ROUTE .MEDSUPPLY Qty: 100 1RF Rx Instructions: Use to check blood sugar daily or if symptomatic hypo/hypergylcemia furosemide 20 mg tablet 20 mg PO DAILY Qty: 90 3RF aspirin 81 mg tablet,delayed release (DR/EC) 81 mg PO DAILY 90 Days Qty: 90 1RF theophylline 400 mg tablet extended release 24 hr 400 mg PO BID 90 Days Qty: 180 4RF albuterol sulfate [Ventolin HFA] 90 mcg/actuation HFA aerosol inhaler 2 puff inhalation Q6H PRN (Reason: for wheezing) Qty: 1 6RF glipizide 5 mg tablet 5 mg PO DAILY Qty: 90 1RF (DME) cane Device See Rx Instructions .Route Qty: 1 0RF Rx Instructions: Standard cane (DME) Rollator walker See Rx Instructions .Route .MEDSUPPLY Qty: 1 0RF Rx Instructions: As directed (DME) pulse oximeter See Rx Instructions .Route .MEDSUPPLY Qty: 1 0RF Rx Instructions: As directed fexofenadine [Elisabeth Allergy] 180 mg tablet 180 mg PO DAILY Qty: 30 3RF glucose 4 gram tablet,chewable 16 g PO Q15M MDD 8 tabs PRN (Reason: hypoglycemia) Qty: 100 1RF Rx Instructions: until symptoms of low blood sugar are controlled (DME) FreeStyle Jemima 3 Plus Sensor Device See Rx Instructions .Route Qty: 2 5RF Rx Instructions: To monitor blood sugars 4 times per day. Change sensor every 15 days (DME) FreeStyle Jemima 3 [place] Misc See Rx Instructions .Route Qty: 1 0RF Rx Instructions: To monitor blood sugar 4 times per day tizanidine 4 mg tablet 4 mg PO Q12H PRN (Reason: muscle spasm) 30 Days Qty: 60 0RF Rx Instructions: do not take concurrently with famotidine ibuprofen 800 mg tablet 800 mg PO BID PRN (Reason: Headache) 30 Days Qty: 60 0RF Rx Instructions: please use sparingly due to diabetes acetaminophen 650 mg tablet extended release 650 mg PO Q12H PRN (Reason: pain) 30 Days Qty: 60 0RF gabapentin 800 mg tablet 800 mg PO QID 30 Days Qty: 120 0RF sertraline 100 mg tablet 150 mg PO DAILY 90 Days Qty: 135 0RF calcium carbonate-vitamin D3 500 mg-10 mcg (400 unit) tablet 1 tab PO DAILY albuterol sulfate 2.5 mg /3 mL (0.083 %) solution for nebulization 2.5 mg inhalation Q4H PRN (Reason: Shortness Of Breath/Wheezing) (DME) walker Misc See Rx Instructions .Route Qty: 1 0RF Rx Instructions: As directed losartan 50 mg tablet 50 mg PO DAILY ipratropium-albuterol 0.5 mg-3 mg(2.5 mg base)/3 mL solution for nebulization 3 ml INHALATION TID Stiolto Respimat 2.5-2.5 mcg/actuation mist 2 puff INHALATION DAILY nicotine 21 mg/24 hr patch 24 hour 1 patch transdermal Q24H Qty: 28 0RF tramadol 50 mg tablet 50 mg PO Q6H PRN (Reason: pain) Qty: 20 0RF esomeprazole magnesium 40 mg capsule,delayed release(DR/EC) 40 mg PO DAILY@0630 Discontinued atorvastatin 20 mg tablet 20 mg PO BEDTIME 90 Days Qty: 90 0RF Discharge Orders: Discharge Order (Routine); Ordered 10/18/24 Ordered By: Vandana Cline Diet: diabetic, low salt diet Activity on Discharge: As tolerated Stand Alone Forms: Patient Portal Discharge page Print Language: [place]an Care Plan Goals: see below Health Concerns: Acute on chronic renal failure Acute CHF COPD exacerbation Cocaine dependence Plan of Treatment: Abstain from cocaine and tobacco use Complete course of steroids as prescribed Monitor weight daily at home if you gain more than 2 lb in 1 day Call PCP or voice instructor Follow low-sodium, diabetic diet dose of statin has been increased Take Lasix daily as prescribed Call to schedule follow-up appointment with Cardiology for further outpatient workup Call [facility] to schedule an appointment Assessment: see discharge summary
[2024-10-18] MEDS: Insulin Lispro 100 UNIT/ML 3 ML VIAL SUBCUT ×2 (08:53→11:29)
[2024-10-18] MEDS: Sertraline HCL 50 MG TABLET 150 MG PO (08:54)
[2024-10-18] MEDS: Potassium Chloride ER 20 MEQ TAB.ER.PRT PO (08:55)
[2024-10-18] MEDS: Losartan Potassium 50 MG TABLET PO (08:55)
[2024-10-18] MEDS: Aspirin Enteric Coated 81 MG TABLET.DR PO (08:55)
[2024-10-18] MEDS: Gabapentin 400 MG CAPSULE 800 MG PO (08:55)
[2024-10-18] MEDS: Loratadine 10 MG TABLET PO (08:55)
[2024-10-18] MEDS: Nicotine 21 MG PATCH.TD24 TRANSDERMA (08:56)
[2024-10-18] MEDS: Furosemide 20 MG/2 ML VIAL IVPUSH (08:56)
[2024-10-18] MEDS: 0.9 % Sodium Chloride Flush 3 ML SYRINGE IVFLUSH (08:56)
[2024-10-18] MEDS: Theophylline Anhydrous ER 400 MG TAB.ER.24H PO (09:01)
--- NOTE | 2024-10-18 09:34 | MHC.CM.PN ---
PT REPORTS SHE LIVES WITH HER SISTER AND HAS A TECHNICAL ASSOCIATE DAILY WELL A CCA CM SHE HAS A WALKER, CANE, WHEEL CHAIR, OXYGEN, AND CPAP ([facility]) HCP ON FILE PCP: DALJIT HAINES DCP: PT WILL BE CLEARED TO DC TODAY SHE IS AGREEABLE TO [facility], HOWEVER HAS BEEN DISCHARGED BY MOST DUE TO NON-COMPLIANCE REFERRALS ARE OUT IN AN ATTEMPT TO SECURE SERVICES PT WILL NEED LYFT TRANSPORT
--- NOTE | 2024-10-18 10:18 | P.F2F_ITS ---
Service Date Service Date: 10/18/24 Encounter Date of encounter: 10/18/24 Reasons for Services Signs and symptoms assessed: needs intermediate for CHF education Reason for intermediate: CV/CP assess and/or care and teach disease management MD Overseeing Care: Joe Hale Homebound: Leaving the home is medically contraindicated at this time without the asist of a device and/or another person due th the listed conditions above and below. Reason homebound: weakness related to hospital stay Certification: Based on the above findings, I certify that this patient is confined to the home and needs intermittent intermediate care, physical therapy and/or speech therapy, or continues to need occupational therapy. The patient is under my care, and I have initiated the establishment of the plan of care. The patient will be followed by a physician who will periodically review the plan of care. Time Spent With Patient Time: Total time managing care of this patient today ____ minutes.
[2024-10-18 10:40] LABS: Glucose, Whole Blood 206 mg/dL (60-115)
--- NOTE | 2024-10-18 10:40 | MHC.CM.PN ---
Addendum entered by Aleyda Cheatham 10/18/24 12:46: PT ALSO REQUESTING A GRAIN TRIMMER, SECURE EMAIL SENT TO [employer] ATTENDANT SO REFERRAL CAN BE INITIATED Original Note: PT REPORTS SHE LIVES WITH HER SISTER AND HAS A SHELTER MONITOR DAILY WELL A [employer] CM SHE HAS A WALKER, CANE, WHEEL CHAIR, OXYGEN, AND CPAP ([place]) HCP ON FILE PCP: DALJIT HAINES DCP: PT WILL BE CLEARED TO DC TODAY WITH RESUMPTION OF SERVICES AND NEW [facility] FOR SN SERVICES PT WILL NEED LYFT TRANSPORT
[2024-10-18 11:20] LABS: Glucose, Whole Blood 240 mg/dL (60-115)
== END 2024-10-18 12:47 | disposition home health service (06) | DRG 194 ==
LOC: HO.ED 04:47 → HO.EDOVER 05:06 → HO.IMC 07:39
PROVIDERS: Student in an Organized Health Care Education/Training Program; Admitting Provider Nurse Practitioner Family; Emergency Provider Emergency Medicine; PCP Nurse Practitioner Family; Visit Provider Physician Assistant Medical
DX: I50.21 Acute systolic (congestive) heart failure (principal); J96.01 Acute respiratory failure with hypoxia; Z99.81 Dependence on supplemental oxygen; F17.210 Nicotine dependence, cigarettes, uncomplicated; F14.20 Cocaine dependence, uncomplicated; J43.9 Emphysema, unspecified; Z71.6 Tobacco abuse counseling; K21.9 Gastro-esophageal reflux disease without esophagitis; K59.01 Slow transit constipation; G47.33 Obstructive sleep apnea (adult) (pediatric); Z79.82 Long term (current) use of aspirin; Z79.84 Long term (current) use of oral hypoglycemic drugs; Z79.899 Other long term (current) drug therapy
CPT/HCPCS: 0241U; 36415; 71045; 80048; 80061; 80076; 80307; 81001; 82803; 82947; 83036; 83605; 83735; 83880; 84439; 84443; 84484; 85025; 87040; 93005; 99285; J0696; J1650; J1938; J2919; J3475

== ENCOUNTER → 2024-10-17 03:43 | Outpatient (BNV) | payer OTHER, SELFPAY | PROVIDERS: Admitting Provider Nurse Practitioner Family; Emergency Provider Emergency Medicine; Visit Provider Radiology Diagnostic Radiology | DX: R06.00 Dyspnea, unspecified (principal) | CPT/HCPCS: 71045 ==

== ENCOUNTER → 2024-10-17 05:01 | Outpatient (BNV) | payer OTHER, SELFPAY | PROVIDERS: Admitting Provider Nurse Practitioner Family; Emergency Provider Emergency Medicine; Visit Provider Internal Medicine Cardiovascular Disease | DX: J96.01 Acute respiratory failure with hypoxia (principal) | CPT/HCPCS: 93010; 99222 ==

== ENCOUNTER → 2024-10-17 05:01 | Outpatient (BNV) | payer OTHER, SELFPAY | PROVIDERS: Admitting Provider Nurse Practitioner Family; Emergency Provider Emergency Medicine; Visit Provider Nurse Practitioner Family | DX: J96.01 Acute respiratory failure with hypoxia (principal) | CPT/HCPCS: 99222; 99239; 99499; G0180 ==

== ENCOUNTER 2024-10-20 23:52 | Inpatient (IN) | payer OTHER, SELFPAY ==
--- NOTE | ~2024-10-20 | XR_ITS ---
CLINICAL HISTORY: dyspnea 1 view chest x-ray Comparison: CR - XR CHEST 1V - 10/17/24 04:14 EDT Findings: The heart is enlarged. No consolidation, significant pleural effusion or pneumothorax. Stable bilateral mild interstitial changes. No acute fracture. Small calcification adjacent to left humeral head may represent calcific tendinitis. IMPRESSION: 1. No acute findings. This document has been electronically signed by: Lauryn Langston MD on 10/21/2024 01:01:22
[2024-10-20 23:58] VITALS: BP 100/70; BP 177/120; PULSE 104; PULSE 80; RESP 20; TEMP 37.3; O2SAT 100; BMI 36.1
[2024-10-21] VITALS (28 sets, daily range): BP systolic 105–177; BP diastolic 54–100; PULSE 79–117; RESP 14–27; TEMP 36.1–37.1; O2SAT 91–100; BMI 35.0
--- NOTE | 2024-10-21 | ECG_ITS ---
Test Reason : SOB Blood Pressure : */* mmHG Vent. Rate : 110 BPM Atrial Rate : 110 BPM P-R Int : 116 ms QRS Dur : 90 ms QT Int : 362 ms P-R-T Axes : 72 158 110 degrees QTcB Int : 489 ms Sinus tachycardia Indeterminate axis Right ventricular hypertrophy Nonspecific ST and T wave abnormality Abnormal ECG When compared with ECG of 17-Oct-2024 03:56, T wave inversion no longer evident in Lateral leads Referred By: Generic ED Physician Electronically Signed By: DAVIS WALKER
[2024-10-21] MEDS: Albuterol Sulfate 5 MG, Albuterol/Iprat 2.5/0.5MG 3 ML 3 ML INHALE (00:10)
[2024-10-21 00:25] LABS: MANUAL DIFF FLAG NO
[2024-10-21 00:28] LABS: Basophils Percent Auto 0.1 % (0-2); Eosinophils Absolute Auto 0.1 X10*3/uL (0.0-0.4); Eosinophils Percent Auto 0.6 % (0-4); Hematocrit 35.7 % (37.0-47.0); Hemoglobin 10.7 g/dl (12.0-16.0); Imm Gran Abs Auto 0.14 X10*3/uL (0.00-0.03); Imm Gran Pct Auto 0.9 % (0.0-0.4); Lymphocytes Absolute Auto 3.8 X10*3/uL (1.2-4.9); Lymphocytes Percent Auto 24.5 % (20-40); Mean Corpuscular Hemoglobin 23.1 pg (27.0-33.0); Mean Corpuscular Volume 76.9 fL (80.0-98.0); Mean Platelet Volume 9.1 fL (9.4-12.3); Monocytes Absolute Auto 1.1 X10*3/uL (0.1-1.2); Monocytes Percent Auto 7.2 % (2-11); Neutrophils Absolute Auto 10.4 x10*3/uL (2.0-8.3); Neutrophils Percent Auto 66.7 % (45-73); Platelet Count 399 X10*3/uL (160-400); Red Blood Count 4.64 X10*6/uL (4.20-5.50); Red Cell Distribution Width 18.6 % (11.0-16.0); White Blood Count 15.7 X10*3/uL (4.8-10.8)
[2024-10-21 00:29] LABS: VBG Base Excess 10.1 mmol/L; VBG HCO3 36 mmol/L (22-26); VBG pCO2 53 mmHg; VBG pH 7.43 (7.32-7.43); VBG pO2 92 mmHg
[2024-10-21 00:33] LABS: Venous Blood Gas Refer to POC result
--- NOTE | 2024-10-21 00:40 | PC.NURSE ---
RT at bedside placing Pt on Bipap.
[2024-10-21] MEDS: methylPREDNISolone Sod Succ 125 MG/2 ML VIAL IVPUSH (00:45)
[2024-10-21 00:46] LABS: B Type Natriuretic Peptide 116 pg/mL (<100)
[2024-10-21 00:47] LABS: Troponin-I High Sensitivity 21.9 ng/L (<3.5-17.0)
[2024-10-21 00:48] LABS: Alanine Aminotransferase 16 U/L (0-31); Albumin Level 3.6 g/dL (3.5-5.0); Alkaline Phosphatase 110 U/L (39-117); Anion Gap 16 (12-20); Aspartate Amino Transferase 21 U/L (5-31); Bilirubin Total 0.1 mg/dL (0.0-1.0); Blood Urea Nitrogen 24 mg/dL (9-16); Calcium 8.6 mg/dL (8.4-10.2); Carbon Dioxide 26 mmol/L (22-29); Chloride 104 mmol/L (96-108); Creatinine Clr Calc Pharmacy 70.6; Estimated Glomerular Filt Rate > 60; Glucose Random 154 mg/dL (60-115); Potassium 4.5 mmol/L (3.3-5.1); Sodium 141 mmol/L (135-145); Total Protein 6.4 g/dL (6.5-8.0)
[2024-10-21] MEDS: Magnesium Sulfate/H2O 2 GM/50 ML PIGGYBACK IV (00:49)
--- NOTE | 2024-10-21 00:50 | ED_ITS ---
HPI - SOB/Dyspnea General Chief Complaint: Dyspnea Stated Complaint: COPD Time Seen by Provider: 10/21/24 00:40 Source: patient, EMS and old records reviewed Mode of arrival: EMS Limitations: no limitations History of Present Illness ED Provider: DR. De Leon HPI Narrative: 54-year-old female with PMH of non insulin-dependent diabetes, HENRY, hypertension, hyperlipidemia, COPD/emphysema use CPAP at home patient is not compliant with the machine. with current nicotine use 1 pack per day of cigarettes, cocaine use, obesity, GERD, Bustos's esophagus, in her last admission was diagnosed with CHFrEF and was started on Lasix, presented by EMS for evaluation of shortness of breath that persist after patient used 4 nebs at home, patient had a recent 3 admissions this month. Related Data Home Medications ?Medication ?Instructions ?Recorded ?Confirmed calcium 500 mg (as 1 tab PO DAILY 06/26/24 10/20/24 carbonate)-vitamin D3 10 mcg (400 unit) tablet albuterol sulfate 2.5 mg/3 mL 2.5 mg inhalation Q4H PRN 07/13/24 10/20/24 (0.083 %) solution for nebulization Shortness Of Breath/Wheezing losartan 50 mg tablet 50 mg PO DAILY 07/17/24 10/20/24 ipratropium 0.5 mg-albuterol 3 mg 3 ml inhalation TID 09/30/24 10/20/24 (2.5 mg base)/3 mL nebulization soln tiotropium 2.5 mcg-olodaterol 2.5 2 puff inhalation DAILY 09/30/24 10/20/24 mcg/actuation mist for inhalation (Stiolto Respimat) esomeprazole magnesium 40 mg 40 mg PO DAILY@0630 10/17/24 10/20/24 capsule,delayed release Previous Rx's ?Medication ?Instructions ?Recorded lancets 28 gauge (FreeStyle #100 ea 01/20/21 Lancets) 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 meter (FreeStyle #1 ea 03/01/22 Lite Meter kit) blood sugar diagnostic (FreeStyle #100 ea 09/16/22 Lite Strips) furosemide 20 mg tablet 20 mg PO DAILY #90 tabs 12/09/23 aspirin 81 mg tablet,delayed 81 mg PO DAILY 90 days #90 tabs 01/01/24 release theophylline 400 mg 400 mg PO BID 90 days #180 tabs 01/27/24 tablet,extended release 24 hr albuterol sulfate 90 mcg/actuation 2 puff inhalation Q6H PRN for 04/10/24 aerosol inhaler (Ventolin HFA) wheezing #1 ea walker #1 ea 07/14/24 glipizide 5 mg tablet 5 mg PO DAILY #90 tabs 08/05/24 Rollator walker #1 ea 09/16/24 cane #1 ea 09/16/24 pulse oximeter #1 ea 09/16/24 fexofenadine 180 mg tablet 180 mg PO DAILY #30 tabs 09/17/24 (Elisabeth Allergy) FreeStyle Jemima 3 Plus Sensor #2 ea 09/22/24 (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 sensor) FreeStyle Jemima 3 [place] #1 ea 09/22/24 (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,item processing clerk,cont) glucose 4 gram chewable tablet 16 g (4 x 4 gram) PO Q15M PRN 09/22/24 hypoglycemia #100 tabs tizanidine 4 mg tablet 4 mg PO Q12H PRN muscle spasm 30 09/29/24 days #60 tabs nicotine 21 mg/24 hr daily 1 patch transdermal Q24H #28 ea 10/01/24 transdermal patch acetaminophen 650 mg 650 mg PO Q12H PRN pain 30 days 10/05/24 tablet,extended release #60 tabs gabapentin 800 mg tablet 800 mg PO QID Pain 30 days #120 10/05/24 tabs ibuprofen 800 mg tablet 800 mg PO BID PRN Headache 30 days 10/05/24 #60 tabs tramadol 50 mg tablet 50 mg PO Q6H PRN pain #20 tabs 10/12/24 sertraline 100 mg tablet 150 mg (1.5 x 100 mg) PO DAILY 90 10/13/24 days #135 tabs atorvastatin 40 mg tablet 40 mg PO BEDTIME #90 tabs 10/18/24 prednisone 20 mg tablet 40 mg (2 x 20 mg) PO DAILY 5 days 10/18/24 #10 tabs Allergies Allergy/AdvReac Type Severity Reaction Status Date / Time doxycycline Allergy Severe Swelling Verified 10/21/24 00:05 varenicline [From CHANTIX] Allergy Severe ANAPHYLAXIS Verified 10/21/24 00:05 azithromycin Allergy Intermediate Rash Verified 10/21/24 00:05 barium sulfate Allergy Intermediate angioedema Verified 10/21/24 00:05 cetirizine Allergy Mild Rash Verified 10/21/24 00:05 famotidine Allergy Mild Rash Verified 10/21/24 00:05 linaclotide [Linzess] Allergy Mild Rash Verified 10/21/24 00:05 Review of Systems 2 Review of Systems: All other systems are reviewed and are negative Constitutional: Reports as per HPI and Reports no additional constitutional complaints Eyes: Reports as per HPI and Reports no additional eye complaints Reports system reviewed and no additional complaints, except as documented Cardiovascular: Reports as per HPI and Reports no additional cardiovascular complaints Respiratory: Reports as per HPI and Reports no additional respiratory complaints Gastrointestinal: Reports as per HPI and Reports no additional gastrointestinal complaints Genitourinary: Reports no additional female genitourinary complaints Musculoskeletal: Reports no additional musculoskeletal complaints Skin/Breast: Reports system reviewed and no additional complaints, except as docu Psychiatric: Reports no additional psychiatric complaints Endocrine: Reports no additional endocrine complaints Hematologic/Lymphatic: Reports no additional hematologic/lymphatic complaints Allergic/Immunologic: Reports no additional allergic/immunologic complaints Reports system reviewed and no additional complaints, except as documented and Reports Abnormal speech present [facility] Past Medical History Medical History GERD (gastroesophageal reflux disease) Constipation Non-insulin dependent type 2 diabetes mellitus HENRY (obstructive sleep apnea) Acute exacerbation of chronic obstructive airways disease Asthma with exacerbation Obesity hypoventilation syndrome COPD (chronic obstructive pulmonary disease) Cocaine use disorder Chronic lung disease Hypoxic respiratory failure Nocturnal hypoxemia Diabetes mellitus COPD exacerbation Crack cocaine use Hyperkalemia Metabolic acidosis Leukocytosis Chest discomfort Chronic renal failure, stage 2 (mild) SOB (shortness of breath) Asthma Smoker Rotator cuff tendonitis GERD (gastroesophageal reflux disease) Chronic idiopathic constipation Bustos's esophagus Depression High triglycerides Gastroparesis Carpal tunnel syndrome of right wrist Nausea & vomiting Hernia Acute and chronic respiratory failure, unspecified whether with hypoxia or hypercapnia HTN (hypertension) Obesity (BMI 30-39.9) Knee pain, bilateral Surgical History History of cholecystectomy (~1988) History of carpal tunnel release Hx of tubal ligation History of pubovaginal sling (~2015) History of umbilical hernia repair (~2001) Hx of section History of open reduction and internal fixation (ORIF) procedure History of esophagogastroduodenoscopy (EGD) Family History Family History Father Heart disease HENRY (obstructive sleep apnea) Family history of breast cancer Mother Asthma Emphysema, unspecified Bronchitis Smoker Alcoholism Bone marrow disease Maternal Grandmother Diabetes Social History Social History Household Members: Family Household Members Other:: sister Housing: House Are you a primary youth career specialist to a significant other at home: No Do you presently have visiting nurse or other home services: No Unable to assess alcohol history related to: Unknown Alcohol intake: former Comment: Sleeping Patient Tobacco Use Status: Current everyday Tobacco user Tobacco use type: Cigarette Cigarette Packs Per Day: 0.5 Cigarettes Per Day: 10.0 Years Smoked: 40? e-Cigarette/Vaping Use: Never Used Second Hand Smoke Exposure: No Substance Use Type: Crack/Cocaine Advance Directives: Yes Advance Directives on File: Yes Advance Directives Date on File: 12/19/23 service: No Current occupational status: disabled 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 Physical Exam 2 Vital Signs: Vital Signs: Last Vital Signs Temp 99.2 F 10/20/24 23:58 Pulse 104 H 10/21/24 00:10 Resp 22 H 10/21/24 00:10 BP 135/87 10/21/24 00:39 Pulse Ox 100 10/20/24 23:58 O2 Del Method Room Air 10/20/24 23:58 BMI result Body Mass Index 36.1 Vital signs have been reviewed and appear to be correct. Blood pressure elevated. Heart rate normal. Respiratory rate normal. Temperature normal. Oxygen saturation normal. Appearance: Alert. Oriented X3. No acute distress. Head: Normal external exam. Normocephalic. Atraumatic. No Lyons signs noted. No raccoon eyes noted Eyes: PERRLA. EOMI. Conjunctiva and sclera normal. Eyelids normal. ENT: TM's Normal. Pharynx normal. Uvula midline. Moist mucous membranes. No trismus noted. No drooling noted. No muffled voice noted. Neck: Normal inspection. Neck supple. FROM. No adenopathy. Thyroid Normal. No meningeal signs. No neck mass noted. CVS: Normal heart rate and rhythm. Heart sound normal. No murmurs noted. Pulses normal throughout. Respiratory: No respiratory distress. Painless inspiration. Breath sounds normal. No wheezes/rales/rhonchi noted. Chest nontender. No accessory muscle usage noted or decreased air movement noted. Abdomen: Soft and nontender. Bowel sounds normal in all 4 quadrants. No distention noted. No organomegaly noted. No visible injury noted. Back: No CVA tenderness. Full range of motion noted. Skin: Skin warm and dry. Normal skin color. Normal skin turgor. No rashes/lesions/lacerations noted. Extremities: No lower extremity edema. Extremities exhibit normal range of motion. Extremities nontender. Neuro: Oriented X 3. Cranial nerve exam: II-XII are grossly intact No motor deficit. No sensory deficit. Reflexes normal. Course Reevaluation(s) Reevaluation #1: 54-year-old female with history of COPD with multiple hospitalization this month, came in with acute COPD exacerbation, patient required BiPAP machine, ABG is showing respiratory acidosis 7.24 with hypercarbia 61. Meet severe sepsis got 250 cc of normal saline and Zosyn. Patient is going to need ICU level of care case discussed with Dr. Kessler. Time: 01:12 Medications Administered Generic Name Dose Route Start Last Admin Trade Name Freq PRN Reason Stop Dose Admin Magnesium Sulfate 2 gm in 50 mls @ 25 mls/hr 10/21/24 00:40 10/21/24 00:49 Magnesium Sulfate/H2o IV 10/21/24 02:39 25 mls/hr ONCE ONE Administration Discontinued Medications Generic Name Dose Route Start Last Admin Trade Name Freq PRN Reason Stop Dose Admin Albuterol Sulfate 5 mg/ 0 mg 10/21/24 00:03 10/21/24 00:10 Albuterol/Ipratropium 3 ml INHALE 10/21/24 00:04 1 each ONCE ONE Administration Methylprednisolone Sodium Succinate 125 mg 10/21/24 00:40 10/21/24 00:45 Methylprednisolone Sod Succ 125 Mg/2 Ml Vial IVPUSH 10/21/24 00:41 125 mg ONCE ONE Administration Medical Decision Making Differential Diagnosis Differential Diagnoses: The differential diagnosis associated with the presentation includes (COPD exacerbation, CHF, pneumonia, pneumothorax, acute respiratory failure, electrolyte derangement, severe anemia.) Admission/Observation Consideration of admission/observation: Escalation of care including admission/observation considered Consult Healthcare Provider Management of the patient was discussed with: Prepress Stripper (Dr. Kessler) Lab Data MDM Lab Attestation statement: I reviewed the patient's lab results. 10/21/24 00:21 10/21/24 00:21 Labs: Lab Results 10/21/24 10/21/24 10/21/24 Range/Units 00:21 00:25 00:56 WBC 15.7 H (4.8-10.8) X10*3/uL RBC 4.64 (4.20-5.50) X10*6/uL Hgb 10.7 L (12.0-16.0) g/dl Hct 35.7 L (37.0-47.0) % MCV 76.9 L (80.0-98.0) fL MCH 23.1 L (27.0-33.0) pg MCHC 30.0 L (31.0-35.0) g/dl RDW 18.6 H (11.0-16.0) % Plt Count 399 (160-400) X10*3/uL MPV 9.1 L (9.4-12.3) fL Immature Gran % (Auto) 0.9 H (0.0-0.4) % Neut % (Auto) 66.7 (45-73) % Lymph % (Auto) 24.5 (20-40) % Beaver % (Auto) 7.2 (2-11) % Eos % (Auto) 0.6 (0-4) % Baso % (Auto) 0.1 (0-2) % Lymph # (Auto) 3.8 (1.2-4.9) X10*3/uL Beaver # (Auto) 1.1 (0.1-1.2) X10*3/uL Eos # (Auto) 0.1 (0.0-0.4) X10*3/uL Baso # (Auto) 0.0 (0.0-0.2) X10*3/uL Abs Immat Gran (auto) 0.14 H (0.00-0.03) X10*3/uL Absolute Neuts (auto) 10.4 H (2.0-8.3) x10*3/uL Absolute Nucleated RBC 0.000 (0.0-0.012) X10*3/uL Nucleated RBC % (auto) 0.0 (0.0-0.2) /100WBC O2 Saturation 96.0 % ABG pH at Pt Temp 7.24 L (7.35-7.45) ABG pCO2 at Pt Temp 61 H* (32-45) mmHg ABG pO2 at Pt Temp 95 (83-108) mmHg ABG HCO3 27 H (22-26) mmol/L ABG Base Excess (Actual) -1.4 mmol/L VBG pH 7.43 (7.32-7.43) VBG pCO2 53 mmHg VBG pO2 92 mmHg VBG HCO3 36 H (22-26) mmol/L VBG O2 Saturation 100.0 % VBG Base Excess 10.1 mmol/L Sodium 141 (135-145) mmol/L Potassium 4.5 (3.3-5.1) mmol/L Chloride 104 (96-108) mmol/L Carbon Dioxide 26 (22-29) mmol/L Anion Gap 16 (12-20) BUN 24 H (9-16) mg/dL Creatinine 0.82 (0.5-1.4) mg/dL Estim Creat Clear Calc 70.6 Estimated GFR > 60 Random Glucose 154 H (60-115) mg/dL Calcium 8.6 D (8.4-10.2) mg/dL Total Bilirubin 0.1 (0.0-1.0) mg/dL AST 21 (5-31) U/L ALT 16 (0-31) U/L Alkaline Phosphatase 110 (39-117) U/L Troponin I High Sens 21.9 H (<3.5-17.0) ng/L B-Natriuretic Peptide 116 H (<100) pg/mL Total Protein 6.4 L (6.5-8.0) g/dL Albumin 3.6 (3.5-5.0) g/dL Independent Interpretation I performed an independent interpretation of an: Plain X-Ray (Chest: No acute findings.) Radiology Impression Discussion of test interpretation with radiology: I have reviewed the radiologist's reading. Critical Care Time Critical Care Time Critical Care Time: Yes Total Critical Care Time: 60 Attestation: The patient was critically ill with a high probability of imminent or life- threatening deterioration. I spent greater than 30 minutes of discontinuous time evaluating the patient, delivering critical care at the bedside, discussing evaluating data with consultants. Critical care time does not include time spent performing separately billable procedures or teaching. Time spent performing critical care was 60 minutes. Discharge Plan Discharge Clinical Impression: COPD with acute exacerbation, Acute respiratory failure with hypoxia and hypercarbia, Severe sepsis Patient Disposition: Admitted As Inpatient Prescriptions: No Action (DME) lancets [FreeStyle Lancets] 28 gauge misc See Rx Instructions .ROUTE .MEDSUPPLY Qty: 100 1RF Rx Instructions: Use to check blood sugar daily or if symptomatic hypo/hypergylcemia (DME) 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 meter [FreeStyle Lite Meter] Kit See Rx Instructions .ROUTE .MEDSUPPLY Qty: 1 0RF Rx Instructions: Use to check blood sugar daily or if symptomatic for hypo/hyperglycemia (DME) FreeStyle Lite Strips Strip See Rx Instructions .ROUTE .MEDSUPPLY Qty: 100 1RF Rx Instructions: Use to check blood sugar daily or if symptomatic hypo/hypergylcemia furosemide 20 mg tablet 20 mg PO DAILY Qty: 90 3RF aspirin 81 mg tablet,delayed release (DR/EC) 81 mg PO DAILY 90 Days Qty: 90 1RF theophylline 400 mg tablet extended release 24 hr 400 mg PO BID 90 Days Qty: 180 4RF albuterol sulfate [Ventolin HFA] 90 mcg/actuation HFA aerosol inhaler 2 puff inhalation Q6H PRN (Reason: for wheezing) Qty: 1 6RF glipizide 5 mg tablet 5 mg PO DAILY Qty: 90 1RF (DME) cane Device See Rx Instructions .Route Qty: 1 0RF Rx Instructions: Standard cane (DME) Rollator walker See Rx Instructions .Route .MEDSUPPLY Qty: 1 0RF Rx Instructions: As directed (DME) pulse oximeter See Rx Instructions .Route .MEDSUPPLY Qty: 1 0RF Rx Instructions: As directed fexofenadine [Elisabeth Allergy] 180 mg tablet 180 mg PO DAILY Qty: 30 3RF glucose 4 gram tablet,chewable 16 g PO Q15M MDD 8 tabs PRN (Reason: hypoglycemia) Qty: 100 1RF Rx Instructions: until symptoms of low blood sugar are controlled (DME) FreeStyle Jemima 3 Plus Sensor Device See Rx Instructions .Route Qty: 2 5RF Rx Instructions: To monitor blood sugars 4 times per day. Change sensor every 15 days (DME) AlexStyle Jemima 3 [place] Mis See Rx Instructions .Route Qty: 1 0RF Rx Instructions: To monitor blood sugar 4 times per day tizanidine 4 mg tablet 4 mg PO Q12H PRN (Reason: muscle spasm) 30 Days Qty: 60 0RF Rx Instructions: do not take concurrently with famotidine ibuprofen 800 mg tablet 800 mg PO BID PRN (Reason: Headache) 30 Days Qty: 60 0RF Rx Instructions: please use sparingly due to diabetes acetaminophen 650 mg tablet extended release 650 mg PO Q12H PRN (Reason: pain) 30 Days Qty: 60 0RF gabapentin 800 mg tablet 800 mg PO QID 30 Days Qty: 120 0RF sertraline 100 mg tablet 150 mg PO DAILY 90 Days Qty: 135 0RF calcium carbonate-vitamin D3 500 mg-10 mcg (400 unit) tablet 1 tab PO DAILY albuterol sulfate 2.5 mg /3 mL (0.083 %) solution for nebulization 2.5 mg inhalation Q4H PRN (Reason: Shortness Of Breath/Wheezing) (DME) [facility] [place] Instructions .Route Qty: 1 0RF Rx Instructions: As directed losartan 50 mg tablet 50 mg PO DAILY ipratropium-albuterol 0.5 mg-3 mg(2.5 mg base)/3 mL solution for nebulization 3 ml INHALATION TID Stiolto Respimat 2.5-2.5 mcg/actuation mist 2 puff INHALATION DAILY nicotine 21 mg/24 hr patch 24 hour 1 patch transdermal Q24H Qty: 28 0RF tramadol 50 mg tablet 50 mg PO Q6H PRN (Reason: pain) Qty: 20 0RF esomeprazole magnesium 40 mg capsule,delayed release(DR/EC) 40 mg PO DAILY@0630 prednisone 20 mg tablet 40 mg PO DAILY 5 Days Qty: 10 0RF atorvastatin 40 mg tablet 40 mg PO BEDTIME Qty: 90 0RF Print Language: Urdu
[2024-10-21 01:01] LABS: ABG Base Excess -1.4 mmol/L; ABG HCO3 27 mmol/L (22-26); ABG pCO2 61 mmHg (32-45); ABG pH 7.24 (7.35-7.45); ABG pO2 95 mmHg (83-108)
[2024-10-21] MEDS: Piperacillin Sodium/Tazobactam 3.375 GM in 0.9 % Sodium Chloride 50 ML IV ×4 (01:15→18:28)
[2024-10-21] MEDS: 0.9 % Sodium Chloride 1,000 ML 250 ML IV (01:20)
[2024-10-21 01:34] LABS: Lactic Acid 3.2 mmol/L (0.5-2.0)
[2024-10-21] MEDS: Heparin Sodium,Porcine 5,000 UNIT/ML VIAL 5000 UNIT SUBCUT ×3 (02:28→16:45)
--- NOTE | 2024-10-21 02:38 | P.HPCC_ITS ---
History of Present Illness Date of Service: 10/21/24 Attending physician on admission: Kolby Kessler Chief Complaint: Dyspnea Ms Scott is a 53-year-old female, active 40+ pack-year smoker, with underlying obesity, COPD/emphysema on 3 L home O2 , severe HENRY non-compliant with CPAP, NIDDM, HFpEF, HTN, HLD, GERD, Bustos?s esophagus, cocaine abuse who was brought in by ambulance for persistent shortness of breath despite 4 nebulizer treatments at home. She has had multiple admissions this month for respiratory failure and was last discharged on 10/18/2024. On arrival to the emergency room, the patient's blood pressure 177/120, heart rate 104, O2 sat 100% on room air. Laboratory data significant for WBC 15.7, hemoglobin 10.7, hematocrit 35.7, BUN 24, glucose 154, lactic acid 3.2, BNP 116, ABG 7.24 61 95 27.? Urine showed 1+ leukocytes, positive for cocaine.? She tested negative for influenza, RSV, COVID-19 during her previous visit on 10/17/2024. Imaging: CXR showed no consolidation, significant pleural effusion or pneumothorax. ED course:?The patient was given magnesium sulfate 2 g,? Zosyn 3.375 g, methylprednisolone 125 mg, DuoNeb, normal saline 1 L. Review of Systems 2 Review of Systems: Yes all other systems are reviewed and are negative Constitutional: Constitutional: Reports no additional constitutional complaints and Denies headache(s) Eyes: Eyes: Denies blurry vision and Denies photophobia ENT: Reports Normal hearing present, Denies dizziness, Denies headache(s), Denies sinus pain, Denies sinus pressure and Denies sore throat Cardiovascular: Cardiovascular: Denies chest pain, Denies Epigastric Pain and Reports dyspnea Respiratory: Respiratory: Denies chest congestion, Denies excessive phlegm production and Reports dyspnea Gastrointestinal: Gastrointestinal: Reports as per HPI, Reports no additional gastrointestinal complaints and Reports change in bowel habits Genitourinary: Genitourinary: Reports no additional female genitourinary complaints, Denies flank pain and Denies urinary urgency Musculoskeletal: Musculoskeletal: Reports no additional musculoskeletal complaints, Denies myalgias and Denies muscle cramps Integumentary/Breasts: Skin/Breast: Denies lesions, Denies rash, Denies sores and Denies wounds Neurologic: Reports Normal hearing present, Denies Neuro-related abnormal movements, Denies Abnormal speech present, Denies dizziness, Denies headache(s) and Denies Sensory deficit (Neuro) Psychiatric: Psychiatric: Reports as per HPI, Denies anxiety and Denies suicidal ideation Hematologic/Lymphatic: Hematologic/Lymphatic: Reports no additional hematologic/lymphatic complaints Allergic/Immunologic: Allergic/Immunologic: Denies seasonal rhinorrhea [facility] Past Medical History Medical History GERD (gastroesophageal reflux disease) Constipation Non-insulin dependent type 2 diabetes mellitus HENRY (obstructive sleep apnea) Acute exacerbation of chronic obstructive airways disease Asthma with exacerbation Obesity hypoventilation syndrome COPD (chronic obstructive pulmonary disease) Cocaine use disorder Chronic lung disease Hypoxic respiratory failure Nocturnal hypoxemia Diabetes mellitus COPD exacerbation Crack cocaine use Hyperkalemia Metabolic acidosis Leukocytosis Chest discomfort Chronic renal failure, stage 2 (mild) SOB (shortness of breath) Asthma Smoker Rotator cuff tendonitis GERD (gastroesophageal reflux disease) Chronic idiopathic constipation Bustos's esophagus Depression High triglycerides Gastroparesis Carpal tunnel syndrome of right wrist Nausea & vomiting Hernia Acute and chronic respiratory failure, unspecified whether with hypoxia or hypercapnia HTN (hypertension) Obesity (BMI 30-39.9) Knee pain, bilateral Family History Family History Father Heart disease HENRY (obstructive sleep apnea) Family history of breast cancer Mother Asthma Emphysema, unspecified Bronchitis Smoker Alcoholism Bone marrow disease Maternal Grandmother Diabetes Surgical History Surgical History History of cholecystectomy (~1988) History of carpal tunnel release Hx of tubal ligation History of pubovaginal sling (~2015) History of umbilical hernia repair (~2001) Hx of section History of open reduction and internal fixation (ORIF) procedure History of esophagogastroduodenoscopy (EGD) Social History Social History Household Members: Other Household Members Other:: sister Housing: House Are you a primary healthcare risk control consultant to a significant other at home: No Do you presently have visiting nurse or other home services: Yes Unable to assess alcohol history related to: Unknown Alcohol intake: never Comment: Sleeping Patient Tobacco Use Status: Current everyday Tobacco user Tobacco use type: Cigarette Cigarette Packs Per Day: 0.5 Cigarettes Per Day: 10.0 Years Smoked: 40? Smoked in Last 30 Days: Yes e-Cigarette/Vaping Use: Never Used Patient Interested in Nicotine Replacement: Yes Patient Given Instructions on How to Stop Smoking: Yes Date Education Initiated: 10/21/24 Second Hand Smoke Exposure: No Use of substances other than those prescribed or required for medical reasons: Yes Substance Use Type: Crack/Cocaine Substance Use Frequency: Occasionally Last Used Substance: Days (ago) Currently Displaying Signs/Symptoms of Drug Intoxication Withdrawal: No Any prior treatment program specific to substance use: Yes Have you been hit, kicked, punched, or otherwise hurt by someone within the past year? If so, by whom?: No Do you feel safe in your current relationship?: No Current Relationship Are you made to feel afraid or neglected: No Advance Directives: Yes Advance Directives Information Provided: No Advance Directives on File: Yes Advance Directives Date on File: 12/19/23 Do you have a plan to hurt others: No Plan Recently lost weight without trying: No Eating poorly because of decreased appetite: No Nutrition Risks: No Nutritional Risk Patient : No : No Poor oral hygiene: No service: No Current occupational status: disabled 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 Meds Allergies Allergy/AdvReac Type Severity Reaction Status Date / Time doxycycline Allergy Severe Swelling Verified 10/21/24 00:05 varenicline [From CHANTIX] Allergy Severe ANAPHYLAXIS Verified 10/21/24 00:05 azithromycin Allergy Intermediate Rash Verified 10/21/24 00:05 barium sulfate Allergy Intermediate angioedema Verified 10/21/24 00:05 cetirizine Allergy Mild Rash Verified 10/21/24 00:05 famotidine Allergy Mild Rash Verified 10/21/24 00:05 linaclotide [Linzess] Allergy Mild Rash Verified 10/21/24 00:05 Active Medications: Current Medications Albuterol/Ipratropium (Albuterol/Iprat 2.5/0.5mg 3 Ml Ampul.Neb) 3 ml INHALE RQ4H WHILE AWAKE [place] Dextrose (Dextrose 50 % 25 Gm/50 Ml Syringe) 25 gm IVPUSH Q15M PRN; Protocol PRN Reason: per Hypoglycemia Standing Ord. Glucose (Glucose Gel 15 Gm Gel..Gram.) 15 gm PO Q15M PRN; Protocol PRN Reason: per Hypoglycemia Standing Ord. Heparin Sodium (Porcine) (Heparin Sodium,Porcine 5,000 Unit/Ml Vial) 5,000 unit SUBCUT Q8H [facility] Last Admin: 10/21/24 02:28 Dose: 5,000 unit Magnesium Sulfate (Magnesium Sulfate/H2o) 2 gm in 50 mls @ 25 mls/hr IV ONCE ONE Stop: 10/21/24 02:39 Last Admin: 10/21/24 00:49 Dose: 25 mls/hr Sodium Chloride (Ns) 1,000 mls @ 250 mls/hr IV .Q4H ONE Stop: 10/21/24 05:13 Last Admin: 10/21/24 01:20 Dose: 250 mls/hr Piperacillin Sod/Tazobactam (Sod 3.375 gm/ Sodium Chloride) 50 mls @ 100 mls/hr IV Q6H [facility] Insulin Human Lispro (Insulin Lispro 100 Unit/Ml 3 Ml Vial) 0 unit SUBCUT Q6H [facility]; Protocol Methylprednisolone Sodium Succinate (Methylprednisolone Sod Succ 125 Mg/2 Ml Vial) 60 mg IVPUSH Q12H [facility] Nicotine (Nicotine 21 Mg Patch.Td24) 21 mg TRANSDERMA DAILY [facility] Omeprazole (Omeprazole 40 Mg Capsule.Dr) 40 mg PO DAILY@0630 [facility] Home Medications ?Medication ?Instructions ?Recorded ?Confirmed ?Last Taken ?Type calcium 500 mg (as 1 tab PO DAILY 06/26/24 10/21/24 10/20/24 History carbonate)-vitamin D3 10 mcg (400 unit) tablet albuterol sulfate 2.5 mg/3 mL 2.5 mg inhalation Q4H PRN 07/13/24 10/21/24 Unknown History (0.083 %) solution for nebulization Shortness Of Breath/Wheezing losartan 50 mg tablet 50 mg PO DAILY 07/17/24 10/21/24 10/20/24 History ipratropium 0.5 mg-albuterol 3 mg 3 ml inhalation TID 09/30/24 10/21/24 10/20/24 History (2.5 mg base)/3 mL nebulization soln tiotropium 2.5 mcg-olodaterol 2.5 2 puff inhalation DAILY 09/30/24 10/21/24 10/20/24 History mcg/actuation mist for inhalation (Stiolto Respimat) esomeprazole magnesium 40 mg 40 mg PO DAILY@0630 10/17/24 10/21/24 10/20/24 History capsule,delayed release tizanidine 4 mg tablet 4 mg PO Q12H muscle spasm 10/21/24 10/21/24 10/20/24 History Physical Exam 2 Vital Signs: Vital Signs: Last Vital Signs Temp 99.2 F 10/20/24 23:58 Pulse 103 H 10/21/24 01:48 Resp 18 10/21/24 01:48 BP 128/69 10/21/24 01:48 Pulse Ox 94 10/21/24 01:48 O2 Del Method BiPAP 10/21/24 01:48 BMI result Body Mass Index 36.1 Const: General: no acute distress and alert Orientation/consciousness: p atient oriented x3 (answering appropriately.) HEENT: Head: Yes normocephalic and Yes atraumatic General nose exam: Normal external nose present (Nares patent, septum midline, sinuses nontender bilaterally.) Mouth: Normal oral and palatal mucosa present (No thrush, tongue in midline, mucosa moist.) Throat: Yes other (No erythema, no exudate.) Eyes: Direct Ophthalmoscopy: No photophobia Neck: Neck: Yes supple (no thyromegaly, trachea midline.) Carotids: normal carotid upstroke Resp: Effort & Inspection: normal respiratory effort and no audible wheezes Auscultation: no crackles, no rales, no rhonchi, no wheezes and diminished lung sounds bilateral Cardio: Jugular venous distension: no JVD Rate: regular rate Rhythm: r egular rhythm Heart sounds: no gallops, no murmurs and no rubs Peripheral pulses: Peripheral pulses 2+ throughout GI: Palpation (GI): Soft to palpation (nondistended.) and nontender Neuro: General: patient oriented x3 (answering appropriately.) Cranial nerves: Yes Normal hearing present Speech: No Abnormal speech present S ensory Exam: No Sensory deficit (Neuro) Extrem: General: Yes full ROM, Yes capillary refill normal and Yes no clubbing, cyanosis or edema Psych: Affect: normal affect Attitude: cooperative Results Labs 10/21/24 05:32 10/21/24 05:32 Labs: Laboratory Results - last 24 hr 10/21/24 10/21/24 10/21/24 00:21 00:25 00:56 MCV 76.9 L MCH 23.1 L MCHC 30.0 L RDW 18.6 H Plt Count 399 MPV 9.1 L Immature Gran % (Auto) 0.9 H Neut % (Auto) 66.7 Lymph % (Auto) 24.5 [place] % (Auto) 7.2 Eos % (Auto) 0.6 Baso % (Auto) 0.1 Lymph # (Auto) 3.8 [place] # (Auto) 1.1 Eos # (Auto) 0.1 Baso # (Auto) 0.0 Abs Immat Gran (auto) 0.14 H Absolute Neuts (auto) 10.4 H Absolute Nucleated RBC 0.000 Nucleated RBC % (auto) 0.0 O2 Saturation 96.0 ABG pH at Pt Temp 7.24 L ABG pCO2 at Pt Temp 61 H* ABG pO2 at Pt Temp 95 ABG HCO3 27 H ABG Base Excess (Actual) -1.4 VBG pH 7.43 VBG pCO2 53 VBG pO2 92 VBG HCO3 36 H VBG O2 Saturation 100.0 VBG Base Excess 10.1 Anion Gap 16 Estim Creat Clear Calc 70.6 Estimated GFR > 60 Random Glucose 154 H Lactic Acid Calcium 8.6 D Total Bilirubin 0.1 AST 21 ALT 16 Alkaline Phosphatase 110 B-Natriuretic Peptide 116 H Total Protein 6.4 L Albumin 3.6 10/21/24 00:59 MCV MCH MCHC RDW Plt Count MPV Immature Gran % (Auto) Neut % (Auto) Lymph % (Auto) [place] % (Auto) Eos % (Auto) Baso % (Auto) Lymph # (Auto) [place] # (Auto) Eos # (Auto) Baso # (Auto) Abs Immat Gran (auto) Absolute Neuts (auto) Absolute Nucleated RBC Nucleated RBC % (auto) O2 Saturation ABG pH at Pt Temp ABG pCO2 at Pt Temp ABG pO2 at Pt Temp ABG HCO3 ABG Base Excess (Actual) VBG pH VBG pCO2 VBG pO2 VBG HCO3 VBG O2 Saturation VBG Base Excess Anion Gap Estim Creat Clear Calc Estimated GFR Random Glucose Lactic Acid 3.2 H* Calcium Total Bilirubin AST ALT Alkaline Phosphatase B-Natriuretic Peptide Total Protein Albumin Assessment and Plan (1) Severe sepsis: Status: Acute (2) Acute respiratory failure with hypoxia and hypercarbia: Status: Acute (3) COPD with acute exacerbation: Status: Acute (4) Tobacco abuse: Status: Acute (5) Cocaine abuse: Status: Acute Plan 53-year-old female, active 40+ pack-year smoker, with underlying obesity, COPD/emphysema on 3 L home O2, severe HENRY non-compliant with CPAP, NIDDM, HFpEF, HTN, HLD, GERD, Bustos?s Esophagus, cocaine abuse admitted for management of acute hypoxic respiratory failure, COPD exacerbation. Neuro: No acute issues. Cardiac: Hemodynamically stable. Echo on 10/15/2024 showed EF of 40-45% with LVH. Pulmonary:?Acute hypoxic respiratory failure. Acute COPD exacerbation. Continue DuoNebs, steroids, empiric antibiotics. Continue BiPAP.? Renal: ?At baseline. Continue to monitor electrolytes, renal indices and I/O. Endo:? No acute issues. SS insulin per protocol.? GI: ?No acute issues. ID:? Met severe sepsis criteria due to leukocytosis, elevated lactic acid, hypoxia. Initial Lactic 3.2.? Received 1L NS. Cultures pending. Continue Zosyn.? Heme/Onc:? No acute issues.? Psych:? No acute issues. Miscellaneous:? Addiction medicine consult placed. Prophylaxis: Heparin Diet: NPO until off BiPAP. Patient's care was discussed in detail with Dr. Kessler.? He is aware of all the above as well as the plan of care for this patient.
[2024-10-21 02:40] LABS: Glucose, Whole Blood 221 mg/dL (60-115)
[2024-10-21 02:52] LABS: Amphetamine Screen Urine Not Detected (Not Detect); Barbiturates, Urine Not Detected (Not Detect); Benzodiazepines Screen Urine Not Detected (Not Detect); Buprenorphine Scr Not Detected (Not Detect); Cannabinoid Screen Urine Not Detected (Not Detect); Cocaine Screen Urine POSITIVE (Not Detect); Fentanyl, urine Not Detected (Not Detect); Methadone Screen, Urine Not Detected (Not Detect); Opiate Screen Urine Not Detected (Not Detect); Oxycodone Screen Urine Not Detected (Not Detect); Phencyclidine Screen Urine Not Detected (Not Detect)
[2024-10-21 03:03] LABS: Reflex Lactate? Lactic Acid Added
[2024-10-21 03:50] LABS: ~Lactic Acid-LAB USE ONLY 1.6 mmol/L (0.5-2.0)
[2024-10-21 05:37] LABS: VBG HCO3 30 mmol/L (22-26); VBG pCO2 47 mmHg; VBG pH 7.41 (7.32-7.43); VBG pO2 65 mmHg
--- NOTE | 2024-10-21 05:58 | HE.ICUCC ---
ICU Critical Care Nursing Note ER to ICU 10/21- assumed care of patient at 0200 Patient A&Ox2 /oriented to person/place SR / ST on telemetry LS diminished skin intact/ moderate weakness noted Patient lives at home with sister MICHAELA Braxton Vital signs stable
[2024-10-21 06:00] LABS: Venous Blood Gas Refer to POC result
[2024-10-21 06:15] LABS: Basophils Percent Auto 0.2 % (0-2); Eosinophils Percent Auto 0.1 % (0-4); Hematocrit 36.6 % (37.0-47.0); Hemoglobin 10.7 g/dl (12.0-16.0); Imm Gran Abs Auto 0.22 X10*3/uL (0.00-0.03); Imm Gran Pct Auto 1.2 % (0.0-0.4); Lymphocytes Absolute Auto 0.8 X10*3/uL (1.2-4.9); MANUAL DIFF FLAG SCAN; Mean Corpuscular HGB Conc 29.2 g/dl (31.0-35.0); Mean Corpuscular Hemoglobin 22.8 pg (27.0-33.0); Mean Corpuscular Volume 77.9 fL (80.0-98.0); Mean Platelet Volume 9.3 fL (9.4-12.3); Monocytes Absolute Auto 0.2 X10*3/uL (0.1-1.2); Monocytes Percent Auto 1.2 % (2-11); Neutrophils Absolute Auto 17.7 x10*3/uL (2.0-8.3); Neutrophils Percent Auto 93.3 % (45-73); Platelet Count 417 X10*3/uL (160-400); Red Cell Distribution Width 18.5 % (11.0-16.0); SCAN SMEAR FLAG 1; White Blood Count 18.9 X10*3/uL (4.8-10.8)
[2024-10-21 06:24] LABS: Albumin Level 3.7 g/dL (3.5-5.0); Anion Gap 14 (12-20); Blood Urea Nitrogen 24 mg/dL (9-16); Calcium 8.4 mg/dL (8.4-10.2); Carbon Dioxide 26 mmol/L (22-29); Chloride 105 mmol/L (96-108); Creatinine Clr Calc Pharmacy 68.4; Estimated Glomerular Filt Rate > 60; Glucose Random 282 mg/dL (60-115); Magnesium 2.4 mg/dL (1.6-2.6); Phosphorus 2.6 mg/dL (2.7-4.5); Potassium 4.6 mmol/L (3.3-5.1); Sodium 140 mmol/L (135-145)
[2024-10-21 06:30] LABS: Glucose, Whole Blood 280 mg/dL (60-115)
[2024-10-21] MEDS: Insulin Lispro 100 UNIT/ML 3 ML VIAL SUBCUT ×4 (06:30→20:42)
[2024-10-21 06:44] LABS: SLIDE REVIEW VERIFIED
[2024-10-21] MEDS: Albuterol/Iprat 2.5/0.5MG 3 ML AMPUL.NEB INHALE ×4 (07:48→18:50)
[2024-10-21] MEDS: methylPREDNISolone Sod Succ 40 MG/ML VIAL IVPUSH (08:46)
[2024-10-21] MEDS: Furosemide 40 MG/4 ML VIAL IVPUSH (08:47)
[2024-10-21] MEDS: Nicotine 21 MG PATCH.TD24 TRANSDERMA (08:52)
[2024-10-21] MEDS: Sodium,Potassium Phosphates POWD.PACK 2 PACKET PO (09:24)
[2024-10-21] MEDS: Losartan Potassium 50 MG TABLET PO (09:25)
--- NOTE | 2024-10-21 10:58 | PHA.MEDREC ---
Pharmacy Consult ? Medication Reconciliation Pharmacy has completed the medication reconciliation. Spoke with patient and she confirmed she was just recently discharged from here 10/18 and confirmed her Atorvastatin 20mg tablet increased to 40mg tabs once at bedtime. The patient confirmed she started the Prednisone 20mg regimen and states she has 1 day left of that. She also confirmed she has been taking the Tizanidine 4mg tab around the clock lately instead of as needed.
--- NOTE | 2024-10-21 11:05 | PHA.MEDREC ---
Addendum entered by Radha Parmar RPh 10/21/24 11:37: Med rec was reviewed by [facility]. Original Note: Pharmacy Consult ? Medication Reconciliation Pharmacy has completed the medication reconciliation. Spoke with patient and she confirmed she was just recently discharged from here 10/18 and confirmed her Atorvastatin 20mg tablet increased to 40mg tabs once at bedtime. The patient confirmed she started the Prednisone 20mg regimen and states she has 1 day left of that. She also confirmed she has been taking the Tizanidine 4mg tab around the clock lately instead of as needed. I utilized discharge packet from 10/18 to confirm the rest of the med rec.
[2024-10-21 11:38] LABS: Glucose, Whole Blood 390 mg/dL (60-115)
--- NOTE | 2024-10-21 14:15 | MHC.CM.PN ---
Pt known to CM from previous admissions: states she resides w/sister, has [facility] and [facility]. She uses O2 and nighttime CPAP from [facility] as well as a walker. Pt will need BLS transportation to home. HCP on file. Re-referred to NA.
--- NOTE | 2024-10-21 15:27 | PC.NURSE ---
pt found with O2 mid to upper 90's on 2L. She was titrated down to 1L with sats continuing in mid to upper 90's mostly 95-97%. O2 turned off sats maintaing 92-96% on r/a. Pt on bipap for nap at 24% and tolerated well. Pt stated some SOB with preparing for transport with sats mainained. RT aware and preparing to give an updraft once on IMC.
--- NOTE | 2024-10-21 16:09 | HO.ADDICT_ITS ---
History of Present Illness Date of Service: 10/21/2024 Chief Complaint: Acute respiratory failure Reason for Consult: JOE Sources of Information: patient interviewed and chart reviewed HPI Narrative: Patient is a 54 year old female CHF, COPD and ongoing cocaine use. Medically admitted with acute respiratory failure--in ICU overnight, now on M/T. Patient known to t/w via previous admission(s). Patient awake, alert, reporting SOB, but requesting to meet with t/w. She reports cutting down on crack cocaine use, stating that she was smoking all day and night , and now she not. Unable to report how much she is smoking, but states she has not smoked since 10/17. Discussed previous Topiramate trial. She reports taking it, it but did not feel it was helpful--unclear how long she took medication for. Reminded patient, that medication had to be titrated outpatient. Discussed overdose risk as UDS earlier this month was +fentanyl. Patient surprised by this. Review of Systems Constitutional: Reports as per HPI Cardiovascular: Reports dyspnea Respiratory: Reports dyspnea Diagnostics Vital Signs (24Hr): Vital Signs - 24 hr 10/20/24 23:58 10/21/24 00:10 10/21/24 00:30 Temperature 99.2 F Pulse Rate 104 H 104 H Respiratory Rate 20 22 H 21 H Blood Pressure 177/120 H Pulse Oximetry 100 Oxygen Delivery Method Room Air Oxygen Flow Rate Fraction of Inspired Oxygen 10/21/24 00:39 10/21/24 01:16 10/21/24 01:48 Temperature Pulse Rate 103 H Respiratory Rate 18 Blood Pressure 135/87 128/69 Pulse Oximetry 94 94 Oxygen Delivery Method BiPAP BiPAP Oxygen Flow Rate Fraction of Inspired Oxygen 10/21/24 02:00 10/21/24 03:00 10/21/24 03:59 Temperature 97.4 F 97.3 F Pulse Rate 100 79 98 Respiratory Rate 16 18 15 Blood Pressure 145/62 H 105/67 158/92 H Pulse Oximetry 97 96 Oxygen Delivery Method BiPAP BiPAP BiPAP Oxygen Flow Rate Fraction of Inspired Oxygen 30 30 30 10/21/24 04:00 10/21/24 04:27 10/21/24 05:00 Temperature 97.0 F Pulse Rate 96 94 Respiratory Rate 19 18 14 Blood Pressure 158/92 H 164/97 H Pulse Oximetry 97 92 Oxygen Delivery Method BiPAP BiPAP Oxygen Flow Rate Fraction of Inspired Oxygen 30 30 10/21/24 06:00 10/21/24 07:00 10/21/24 07:52 Temperature Pulse Rate 88 95 Respiratory Rate 27 H 18 17 Blood Pressure 158/92 H 158/92 H Pulse Oximetry 91 L 91 L Oxygen Delivery Method BiPAP BiPAP Oxygen Flow Rate Fraction of Inspired Oxygen 30 30 10/21/24 07:55 10/21/24 08:00 10/21/24 09:00 Temperature 97.0 F Pulse Rate 81 83 102 H Respiratory Rate 17 18 18 Blood Pressure 173/80 H 177/93 H Pulse Oximetry 95 98 Oxygen Delivery Method BiPAP BiPAP Oxygen Flow Rate Fraction of Inspired Oxygen 30 30 10/21/24 10:00 10/21/24 11:00 10/21/24 11:36 Temperature Pulse Rate 97 95 101 H Respiratory Rate 20 25 H 25 H Blood Pressure 152/59 H 152/100 H Pulse Oximetry 96 95 Oxygen Delivery Method Nasal Cannula Nasal Cannula Oxygen Flow Rate 3 3 Fraction of Inspired Oxygen 10/21/24 12:00 10/21/24 13:00 10/21/24 15:36 Temperature 98.8 F Pulse Rate 108 H 106 H 105 H Respiratory Rate 20 20 20 Blood Pressure 129/54 L 141/68 H Pulse Oximetry 97 95 Oxygen Delivery Method Room Air Room Air Oxygen Flow Rate Fraction of Inspired Oxygen 10/21/24 16:00 Temperature 97.9 F Pulse Rate 99 Respiratory Rate 20 Blood Pressure 151/73 H Pulse Oximetry 97 Oxygen Delivery Method Nasal Cannula Oxygen Flow Rate 2 Fraction of Inspired Oxygen BMI result Body Mass Index 35.0 Labs 10/22/24 06:12 10/22/24 06:12 Labs: Laboratory Results - last 48 hr 10/21/24 10/21/24 10/21/24 00:21 00:25 00:56 WBC 15.7 H RBC 4.64 Hgb 10.7 L Hct 35.7 L MCV 76.9 L MCH 23.1 L MCHC 30.0 L RDW 18.6 H Plt Count 399 MPV 9.1 L Immature Gran % (Auto) 0.9 H Neut % (Auto) 66.7 Lymph % (Auto) 24.5 [place] % (Auto) 7.2 Eos % (Auto) 0.6 Baso % (Auto) 0.1 Lymph # (Auto) 3.8 [place] # (Auto) 1.1 Eos # (Auto) 0.1 Baso # (Auto) 0.0 Abs Immat Gran (auto) 0.14 H Absolute Neuts (auto) 10.4 H Absolute Nucleated RBC 0.000 Nucleated RBC % (auto) 0.0 Smear Tech's Comments O2 Saturation 96.0 ABG pH at Pt Temp 7.24 L ABG pCO2 at Pt Temp 61 H* ABG pO2 at Pt Temp 95 ABG HCO3 27 H ABG Base Excess (Actual) -1.4 VBG pH 7.43 VBG pCO2 53 VBG pO2 92 VBG HCO3 36 H VBG O2 Saturation 100.0 VBG Base Excess 10.1 Sodium 141 Potassium 4.5 Chloride 104 Carbon Dioxide 26 Anion Gap 16 BUN 24 H Creatinine 0.82 Estim Creat Clear Calc 70.6 Estimated GFR > 60 POC Glucose Random Glucose 154 H Lactic Acid Lactic Acid F/U @ 2Hr Calcium 8.6 D Phosphorus Magnesium Total Bilirubin 0.1 AST 21 ALT 16 Alkaline Phosphatase 110 Troponin I High Sens 21.9 H B-Natriuretic Peptide 116 H Total Protein 6.4 L Albumin 3.6 Urine Opiates Screen Ur Buprenorphine Scrn Ur Oxycodone Screen Urine Methadone Screen Urine Fentanyl Screen Ur Barbiturates Screen Ur Phencyclidine Scrn Ur Amphetamines Screen U Benzodiazepines Scrn Urine Cocaine Screen U Marijuana (THC) Screen 10/21/24 10/21/24 10/21/24 00:59 02:25 02:35 WBC RBC Hgb Hct MCV MCH MCHC RDW Plt Count MPV Immature Gran % (Auto) Neut % (Auto) Lymph % (Auto) [place] % (Auto) Eos % (Auto) Baso % (Auto) Lymph # (Auto) [place] # (Auto) Eos # (Auto) Baso # (Auto) Abs Immat Gran (auto) Absolute Neuts (auto) Absolute Nucleated RBC Nucleated RBC % (auto) Smear Tech's Comments O2 Saturation ABG pH at Pt Temp ABG pCO2 at Pt Temp ABG pO2 at Pt Temp ABG HCO3 ABG Base Excess (Actual) VBG pH VBG pCO2 VBG pO2 VBG HCO3 VBG O2 Saturation VBG Base Excess Sodium Potassium Chloride Carbon Dioxide Anion Gap BUN Creatinine Estim Creat Clear Calc Estimated GFR POC Glucose 221 H Random Glucose Lactic Acid 3.2 H* Lactic Acid F/U @ 2Hr Calcium Phosphorus Magnesium Total Bilirubin AST ALT Alkaline Phosphatase Troponin I High Sens B-Natriuretic Peptide Total Protein Albumin Urine Opiates Screen Not Detected Ur Buprenorphine Scrn Not Detected Ur Oxycodone Screen Not Detected Urine Methadone Screen Not Detected Urine Fentanyl Screen Not Detected Ur Barbiturates Screen Not Detected Ur Phencyclidine Scrn Not Detected Ur Amphetamines Screen Not Detected U Benzodiazepines Scrn Not Detected Urine Cocaine Screen POSITIVE H U Marijuana (THC) Screen Not Detected 10/21/24 10/21/24 10/21/24 03:28 05:32 05:33 WBC 18.9 H RBC 4.70 Hgb 10.7 L Hct 36.6 L MCV 77.9 L MCH 22.8 L MCHC 29.2 L RDW 18.5 H Plt Count 417 H MPV 9.3 L Immature Gran % (Auto) 1.2 H Neut % (Auto) 93.3 H Lymph % (Auto) 4.0 L [place] % (Auto) 1.2 L Eos % (Auto) 0.1 Baso % (Auto) 0.2 Lymph # (Auto) 0.8 L [place] # (Auto) 0.2 Eos # (Auto) 0.0 Baso # (Auto) 0.0 Abs Immat Gran (auto) 0.22 H Absolute Neuts (auto) 17.7 H Absolute Nucleated RBC 0.000 Nucleated RBC % (auto) 0.0 Smear Tech's Comments VERIFIED O2 Saturation ABG pH at Pt Temp ABG pCO2 at Pt Temp ABG pO2 at Pt Temp ABG HCO3 ABG Base Excess (Actual) VBG pH 7.41 VBG pCO2 47 VBG pO2 65 VBG HCO3 30 H VBG O2 Saturation 93.0 VBG Base Excess 5.0 Sodium 140 Potassium 4.6 Chloride 105 Carbon Dioxide 26 Anion Gap 14 BUN 24 H Creatinine 0.83 Estim Creat Clear Calc 68.4 Estimated GFR > 60 POC Glucose Random Glucose 282 H Lactic Acid Lactic Acid F/U @ 2Hr 1.6 Calcium 8.4 Phosphorus 2.6 L Magnesium 2.4 Total Bilirubin AST ALT Alkaline Phosphatase Troponin I High Sens B-Natriuretic Peptide Total Protein Albumin 3.7 Urine Opiates Screen Ur Buprenorphine Scrn Ur Oxycodone Screen Urine Methadone Screen Urine Fentanyl Screen Ur Barbiturates Screen Ur Phencyclidine Scrn Ur Amphetamines Screen U Benzodiazepines Scrn Urine Cocaine Screen U Marijuana (THC) Screen 10/21/24 10/21/24 06:27 11:34 WBC RBC Hgb Hct MCV MCH MCHC RDW Plt Count MPV Immature Gran % (Auto) Neut % (Auto) Lymph % (Auto) [place] % (Auto) Eos % (Auto) Baso % (Auto) Lymph # (Auto) [place] # (Auto) Eos # (Auto) Baso # (Auto) Abs Immat Gran (auto) Absolute Neuts (auto) Absolute Nucleated RBC Nucleated RBC % (auto) Smear Tech's Comments O2 Saturation ABG pH at Pt Temp ABG pCO2 at Pt Temp ABG pO2 at Pt Temp ABG HCO3 ABG Base Excess (Actual) VBG pH VBG pCO2 VBG pO2 VBG HCO3 VBG O2 Saturation VBG Base Excess Sodium Potassium Chloride Carbon Dioxide Anion Gap BUN Creatinine Estim Creat Clear Calc Estimated GFR POC Glucose 280 H 390 H* Random Glucose Lactic Acid Lactic Acid F/U @ 2Hr Calcium Phosphorus Magnesium Total Bilirubin AST ALT Alkaline Phosphatase Troponin I High Sens B-Natriuretic Peptide Total Protein Albumin Urine Opiates Screen Ur Buprenorphine Scrn Ur Oxycodone Screen Urine Methadone Screen Urine Fentanyl Screen Ur Barbiturates Screen Ur Phencyclidine Scrn Ur Amphetamines Screen U Benzodiazepines Scrn Urine Cocaine Screen U Marijuana (THC) Screen Mental Status Exam Mental Status Exam Level of Consciousness: Awake, Appropriate and Alert Patient Behavior: Appropriate Affect Description: Blunted Speech Pattern: Clear Medications Medications Current Medications Albuterol/Ipratropium (Albuterol/Iprat 2.5/0.5mg 3 Ml Ampul.Neb) 3 ml INHALE RQ4H WHILE AWAKE [facility] Last Admin: 10/21/24 15:35 Dose: 3 ml Dextrose (Dextrose 50 % 25 Gm/50 Ml Syringe) 25 gm IVPUSH Q15M PRN; Protocol PRN Reason: per Hypoglycemia Standing Ord. Furosemide (Furosemide 40 Mg/4 Ml Vial) 40 mg IVPUSH DAILY [facility]; Protocol Last Admin: 10/21/24 08:47 Dose: 40 mg Glucose (Glucose Gel 15 Gm Gel..Gram.) 15 gm PO Q15M PRN; Protocol PRN Reason: per Hypoglycemia Standing Ord. Heparin Sodium (Porcine) (Heparin Sodium,Porcine 5,000 Unit/Ml Vial) 5,000 unit SUBCUT Q8H [facility] Last Admin: 10/21/24 08:50 Dose: 5,000 unit Piperacillin Sod/Tazobactam (Sod 3.375 gm/ Sodium Chloride) 50 mls @ 100 mls/hr IV Q6H [facility] Last Infusion: 10/21/24 14:10 Dose: Infused Insulin Human Lispro (Insulin Lispro 100 Unit/Ml 3 Ml Vial) 0 unit SUBCUT QIDACHS [facility]; Protocol Last Admin: 10/21/24 11:50 Dose: 10 unit Losartan Potassium (Losartan Potassium 50 Mg Tablet) 50 mg PO DAILY [facility]; Protocol Last Admin: 10/21/24 09:25 Dose: 50 mg Methylprednisolone Sodium Succinate (Methylprednisolone Sod Succ 40 Mg/Ml Vial) 40 mg IVPUSH DAILY [facility] Last Admin: 10/21/24 08:46 Dose: 40 mg Nicotine (Nicotine 21 Mg Patch.Td24) 21 mg TRANSDERMA DAILY [facility] Last Admin: 10/21/24 08:52 Dose: 21 mg Omeprazole (Omeprazole 40 Mg Capsule.Dr) 40 mg PO DAILY@0630 [facility] Last Admin: 10/21/24 05:37 Dose: Not Given Allergies Allergies Allergy/AdvReac Type Severity Reaction Status Date / Time doxycycline Allergy Severe Swelling Verified 10/21/24 00:05 varenicline [From CHANTIX] Allergy Severe ANAPHYLAXIS Verified 10/21/24 00:05 azithromycin Allergy Intermediate Rash Verified 10/21/24 00:05 barium sulfate Allergy Intermediate angioedema Verified 10/21/24 00:05 cetirizine Allergy Mild Rash Verified 10/21/24 00:05 famotidine Allergy Mild Rash Verified 10/21/24 00:05 linaclotide [Linzess] Allergy Mild Rash Verified 10/21/24 00:05 Assessment & Plan Assessment & Plan (1) Cocaine use disorder: Status: Acute Code(s): F14.10 - Cocaine abuse, uncomplicated Assessment and Plan: * patient open to restarting topiramate for cocaine use (25mg BID for one week then increase to 50mg BID) * will need appt with [facility]--beef ribber to schedule * take home narcan--overdose prevention discussion Total time managing care of this patient today __25__ minutes. [facility] Past Medical History Medical History (Updated 10/22/24 @ 09:38 by Richa Winston CNP) Cocaine use disorder Cocaine abuse GERD (gastroesophageal reflux disease) Constipation Non-insulin dependent type 2 diabetes mellitus HENRY (obstructive sleep apnea) Acute exacerbation of chronic obstructive airways disease Asthma with exacerbation Obesity hypoventilation syndrome COPD (chronic obstructive pulmonary disease) Chronic lung disease Hypoxic respiratory failure Nocturnal hypoxemia Diabetes mellitus COPD exacerbation Crack cocaine use Hyperkalemia Metabolic acidosis Leukocytosis Chest discomfort Chronic renal failure, stage 2 (mild) SOB (shortness of breath) Asthma Smoker Rotator cuff tendonitis GERD (gastroesophageal reflux disease) Chronic idiopathic constipation Bustos's esophagus Depression High triglycerides Gastroparesis Carpal tunnel syndrome of right wrist Nausea & vomiting Hernia Acute and chronic respiratory failure, unspecified whether with hypoxia or hypercapnia HTN (hypertension) Obesity (BMI 30-39.9) Knee pain, bilateral Family History Family History Father Heart disease HENRY (obstructive sleep apnea) Family history of breast cancer Mother Asthma Emphysema, unspecified Bronchitis Smoker Alcoholism Bone marrow disease Maternal Grandmother Diabetes Surgical History Surgical History History of cholecystectomy (~1988) History of carpal tunnel release Hx of tubal ligation History of pubovaginal sling (~2015) History of umbilical hernia repair (~2001) Hx of section History of open reduction and internal fixation (ORIF) procedure History of esophagogastroduodenoscopy (EGD) Social History Social History Household Members: Other Household Members Other:: sister Housing: House Are you a primary long term care social worker to a significant other at home: No Do you presently have visiting nurse or other home services: Yes Unable to assess alcohol history related to: Unknown Alcohol intake: never Comment: Sleeping Patient Tobacco Use Status: Current everyday Tobacco user Tobacco use type: Cigarette Cigarette Packs Per Day: 0.5 Cigarettes Per Day: 10.0 Years Smoked: 40? Smoked in Last 30 Days: Yes e-Cigarette/Vaping Use: Never Used Patient Interested in Nicotine Replacement: Yes Patient Given Instructions on How to Stop Smoking: Yes Date Education Initiated: 10/21/24 Second Hand Smoke Exposure: No Use of substances other than those prescribed or required for medical reasons: Yes Substance Use Type: Crack/Cocaine Substance Use Frequency: Occasionally Last Used Substance: Days (ago) Currently Displaying Signs/Symptoms of Drug Intoxication Withdrawal: No Any prior treatment program specific to substance use: Yes Have you been hit, kicked, punched, or otherwise hurt by someone within the past year? 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
[2024-10-21 16:33] LABS: Glucose, Whole Blood 242 mg/dL (60-115)
[2024-10-21] MEDS: Loratadine 10 MG TABLET PO (19:44)
[2024-10-21] MEDS: TiZANidine HCL 4 MG TABLET PO (19:44)
[2024-10-21] MEDS: Gabapentin 400 MG CAPSULE 800 MG PO (20:22)
[2024-10-21] MEDS: Atorvastatin Calcium 40 MG TABLET PO (20:22)
[2024-10-21] MEDS: Theophylline Anhydrous ER 400 MG TAB.ER.24H PO (20:22)
[2024-10-21] MEDS: Sertraline HCL 50 MG TABLET 150 MG PO (20:22)
[2024-10-21] MEDS: traMADoL HCL 50 MG TABLET PO (20:23)
[2024-10-21 20:27] LABS: Glucose, Whole Blood 189 mg/dL (60-115)
[2024-10-22 00:07] VITALS: PULSE 102; RESP 18; O2SAT 96
[2024-10-22] MEDS: Piperacillin Sodium/Tazobactam 3.375 GM in 0.9 % Sodium Chloride 50 ML IV ×2 (00:33→06:01)
[2024-10-22] MEDS: Heparin Sodium,Porcine 5,000 UNIT/ML VIAL 5000 UNIT SUBCUT ×2 (00:33→07:45)
[2024-10-22] MEDS: Calcium Carbonate 750 MG TAB.CHEW PO (02:18)
[2024-10-22 03:10] VITALS: BP 146/64; PULSE 64; RESP 18; TEMP 36.3; O2SAT 95
[2024-10-22] MEDS: TiZANidine HCL 4 MG TABLET PO (05:58)
[2024-10-22] MEDS: Omeprazole 40 MG CAPSULE.DR PO (05:59)
[2024-10-22 06:00] VITALS: BMI 35.1
[2024-10-22 06:21] LABS: Venous Blood Gas Refer to POC result
[2024-10-22 06:23] LABS: VBG Base Excess 9.7 mmol/L; VBG HCO3 37 mmol/L (22-26); VBG pCO2 63 mmHg; VBG pH 7.37 (7.32-7.43); VBG pO2 61 mmHg
[2024-10-22 06:30] LABS: Basophils Percent Auto 0.2 % (0-2); Eosinophils Absolute Auto 0.2 X10*3/uL (0.0-0.4); Eosinophils Percent Auto 0.8 % (0-4); Hematocrit 35.9 % (37.0-47.0); Hemoglobin 10.7 g/dl (12.0-16.0); Imm Gran Pct Auto 1.1 % (0.0-0.4); Lymphocytes Absolute Auto 5.4 X10*3/uL (1.2-4.9); Lymphocytes Percent Auto 29.1 % (20-40); MANUAL DIFF FLAG SCAN; Mean Corpuscular HGB Conc 29.8 g/dl (31.0-35.0); Mean Corpuscular Hemoglobin 23.1 pg (27.0-33.0); Mean Corpuscular Volume 77.4 fL (80.0-98.0); Mean Platelet Volume 9.1 fL (9.4-12.3); Monocytes Absolute Auto 1.3 X10*3/uL (0.1-1.2); Neutrophils Absolute Auto 11.5 x10*3/uL (2.0-8.3); Neutrophils Percent Auto 61.8 % (45-73); Platelet Count 402 X10*3/uL (160-400); Red Blood Count 4.64 X10*6/uL (4.20-5.50); Red Cell Distribution Width 18.6 % (11.0-16.0); SCAN SMEAR FLAG 1; White Blood Count 18.6 X10*3/uL (4.8-10.8)
[2024-10-22 06:37] LABS: Albumin Level 3.6 g/dL (3.5-5.0); Anion Gap 14 (12-20); Blood Urea Nitrogen 40 mg/dL (9-16); Calcium 9.1 mg/dL (8.4-10.2); Carbon Dioxide 29 mmol/L (22-29); Chloride 100 mmol/L (96-108); Creatinine Clr Calc Pharmacy 59.9; Estimated Glomerular Filt Rate > 60; Glucose Random 200 mg/dL (60-115); Magnesium 1.8 mg/dL (1.6-2.6); Sodium 139 mmol/L (135-145)
[2024-10-22 07:03] LABS: Glucose, Whole Blood 206 mg/dL (60-115)
[2024-10-22 07:36] VITALS: BP 101/65; PULSE 87; RESP 15; TEMP 36.9; O2SAT 98
[2024-10-22] MEDS: methylPREDNISolone Sod Succ 40 MG/ML VIAL IVPUSH (07:45)
[2024-10-22] MEDS: Theophylline Anhydrous ER 400 MG TAB.ER.24H PO (07:47)
[2024-10-22] MEDS: Aspirin Enteric Coated 81 MG TABLET.DR PO (07:47)
[2024-10-22] MEDS: Sertraline HCL 50 MG TABLET 150 MG PO (07:47)
[2024-10-22] MEDS: Losartan Potassium 50 MG TABLET PO (07:48)
[2024-10-22] MEDS: Gabapentin 400 MG CAPSULE 800 MG PO (07:48)
[2024-10-22] MEDS: Nicotine 21 MG PATCH.TD24 TRANSDERMA (07:48)
[2024-10-22] MEDS: Loratadine 10 MG TABLET PO (07:48)
[2024-10-22 07:50] VITALS: BP 106/59
[2024-10-22] MEDS: Furosemide 40 MG/4 ML VIAL IVPUSH (07:50)
[2024-10-22 07:51] VITALS: BP 106/59
[2024-10-22 07:54] LABS: SLIDE REVIEW VERIFIED
[2024-10-22] MEDS: Insulin Lispro 100 UNIT/ML 3 ML VIAL SUBCUT (07:58)
[2024-10-22] MEDS: Albuterol/Iprat 2.5/0.5MG 3 ML AMPUL.NEB INHALE (08:34)
[2024-10-22 08:54] VITALS: PULSE 94; RESP 16; O2SAT 98
--- NOTE | 2024-10-22 10:24 | P.DS_ITS ---
DS: Providers Provider Date of Service: 10/22/24 Date of admission: 10/21/24 01:16 Date of discharge: 10/22/24 Primary care physician: STEPHEN LazcanoP- Consults: 10/21/24 02:06 Addiction Medicine Provider Stat Consulting Provider: Addiction Covering Reason for consultation: UDS positive for cocaine Has provider been notified: No 10/22/24 08:55 Inpt - Recovery Team Routine Comment: Reason for consultation: JOE eval DS: Diagnosis Discharge Diagnosis (1) Cocaine use disorder: Status: Acute DS: Summary Hospital Course Hospital Course: from initial hpi: Ms Scott is a 53-year-old female, active 40+ pack-year smoker, with underlying obesity, COPD/emphysema on 3 L home O2 , severe HENRY non-compliant with CPAP, NIDDM, HFpEF, HTN, HLD, GERD, Bustos?s esophagus, cocaine abuse who was brought in by ambulance for persistent shortness of breath despite 4 nebulizer treatments at home. She has had multiple admissions this month for respiratory failure and was last discharged on 10/18/2024. On arrival to the emergency room, the patient's blood pressure 177/120, heart rate 104, O2 sat 100% on room air. Laboratory data significant for WBC 15.7, hemoglobin 10.7, hematocrit 35.7, BUN 24, glucose 154, lactic acid 3.2, BNP 116, ABG 7.24 61 95 27.? Urine showed 1+ leukocytes, positive for cocaine.? She tested negative for influenza, RSV, COVID-19 during her previous visit on 10/17/2024. Imaging: CXR showed no consolidation, significant pleural effusion or pneumothorax. ED course:?The patient was given magnesium sulfate 2 g,? Zosyn 3.375 g, methylpr ednisolone 125 mg, DuoNeb, normal saline 1 L. hospital course: Patient was admitted for acute on chronic hypoxic and hypercapnic respiratory failure due to COPD with acute decompensation due to cocaine use complicated by severe sepsis. She was admitted to the ICU for BiPAP and steroids, given empiric Zosyn go no obvious bacterial infection. Was weaned back to baseline O2, symptoms significantly improved. Patient is feeling much better and will be discharged home on p.o. prednisone. She was educated to avoid cocaine and that she would likely keep having recurrences if she keeps using. She should also follow up with Cardiology for newly diagnosed cardiomyopathy which will require ischemic workup. We will continue aspirin statin. For severe HENRY she was noncompliant with CPAP. For diabetes was continued on insulin. For hypertension continued on losartan. For mood disorder continued on sertraline. For Bustos's esophagus continued on PPI. Time Attestation Discharge Coordination Time (in mins): 33 Quality: Safe Use of Opioids Does Pt have an Active Cancer Diagnosis on the Problem List?: No Quality: Stroke Does the patient have a stroke diagnosis?: No Physical Exam Vital Signs: Vital Signs: Last Vital Signs Temp 98.4 F 10/22/24 07:36 Pulse 94 10/22/24 08:54 Resp 16 10/22/24 08:54 BP 106/59 L 10/22/24 07:51 Pulse Ox 98 10/22/24 07:36 O2 Del Method Nasal Cannula 10/22/24 07:36 O2 Flow Rate 2 10/22/24 07:36 FiO2 30 10/21/24 09:00 Oxygen Flow Rate 30 10/21/24 01:16 BMI result Body Mass Index 35.1 Cushingoid appearance Diminished air movement No acute distress DS: Data Data Completed and Pending Completed studies during hospitalization [Text1]: Procedures Assistance with Respiratory Ventilation, Less than 24 Consecutive Hours, Continuous Positive Airway Pressure (10/14/24) Insertion of Endotracheal Airway into Trachea, Via Natural or Artificial Opening (11/03/20) Insertion of Infusion Device into Superior Vena Cava, Percutaneous Approach (11/03/20) Respiratory Ventilation, Less than 24 Consecutive Hours (11/03/20) Labs on day of discharge: Laboratory Results - last 24 hr 10/21/24 10/21/24 10/21/24 11:34 16:28 20:07 WBC RBC Hgb Hct MCV MCH MCHC RDW Plt Count MPV Immature Gran % (Auto) Neut % (Auto) Lymph % (Auto) [place] % (Auto) Eos % (Auto) Baso % (Auto) Lymph # (Auto) [place] # (Auto) Eos # (Auto) Baso # (Auto) Abs Immat Gran (auto) Absolute Neuts (auto) Absolute Nucleated RBC Nucleated RBC % (auto) Smear Tech's Comments VBG pH VBG pCO2 VBG pO2 VBG HCO3 VBG O2 Saturation VBG Base Excess Sodium Potassium Chloride Carbon Dioxide Anion Gap BUN Creatinine Estim Creat Clear Calc Estimated GFR POC Glucose 390 H* 242 H 189 H Random Glucose Calcium Phosphorus Magnesium Albumin 10/22/24 10/22/24 10/22/24 06:12 06:20 06:57 WBC 18.6 H RBC 4.64 Hgb 10.7 L Hct 35.9 L MCV 77.4 L MCH 23.1 L MCHC 29.8 L RDW 18.6 H Plt Count 402 H MPV 9.1 L Immature Gran % (Auto) 1.1 H Neut % (Auto) 61.8 Lymph % (Auto) 29.1 [place] % (Auto) 7.0 Eos % (Auto) 0.8 Baso % (Auto) 0.2 Lymph # (Auto) 5.4 H [place] # (Auto) 1.3 H Eos # (Auto) 0.2 Baso # (Auto) 0.0 Abs Immat Gran (auto) 0.20 H Absolute Neuts (auto) 11.5 H Absolute Nucleated RBC 0.000 Nucleated RBC % (auto) 0.0 Smear Tech's Comments VERIFIED VBG pH 7.37 VBG pCO2 63 VBG pO2 61 VBG HCO3 37 H VBG O2 Saturation 89.0 VBG Base Excess 9.7 Sodium 139 Potassium 4.0 Chloride 100 Carbon Dioxide 29 Anion Gap 14 BUN 40 H Creatinine 0.95 Estim Creat Clear Calc 59.9 Estimated GFR > 60 POC Glucose 206 H Random Glucose 200 H Calcium 9.1 D Phosphorus 4.0 Magnesium 1.8 Albumin 3.6 Preliminary micro results at discharge 10/21/24 00:59 Blood Culture - Preliminary Blood - Venous No growth after 24 hours. 10/21/24 00:57 Blood Culture - Preliminary Blood - Venous No growth after 24 hours. Discharge Plan Discharge Anticipated Discharge Date/Time: 10/22/24 10:18 Patient Disposition: Home, Self-Care Discharge Diagnosis: copd Referrals: Joe Hale [facility] [Primary Care Provider] - 1 Week Discharge Medications: Continued (DME) lancets [FreeStyle Lancets] 28 gauge misc See Rx Instructions .ROUTE .MEDSUPPLY Qty: 100 1RF Rx Instructions: Use to check blood sugar daily or if symptomatic hypo/hypergylcemia (DME) 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 meter [FreeStyle Lite Meter] Kit See Rx Instructions .ROUTE .MEDSUPPLY Qty: 1 0RF Rx Instructions: Use to check blood sugar daily or if symptomatic for hypo/hyperglycemia (DME) FreeStyle Lite Strips Strip See Rx Instructions .ROUTE .MEDSUPPLY Qty: 100 1RF Rx Instructions: Use to check blood sugar daily or if symptomatic hypo/hypergylcemia furosemide 20 mg tablet 20 mg PO DAILY Qty: 90 3RF aspirin 81 mg tablet,delayed release (DR/EC) 81 mg PO DAILY 90 Days Qty: 90 1RF theophylline 400 mg tablet extended release 24 hr 400 mg PO BID 90 Days Qty: 180 4RF albuterol sulfate [Ventolin HFA] 90 mcg/actuation HFA aerosol inhaler 2 puff inhalation Q6H PRN (Reason: for wheezing) Qty: 1 6RF glipizide 5 mg tablet 5 mg PO DAILY Qty: 90 1RF (DME) cane Device See Rx Instructions .Route Qty: 1 0RF Rx Instructions: Standard cane (DME) Rollator walker See Rx Instructions .Route .MEDSUPPLY Qty: 1 0RF Rx Instructions: As directed (DME) pulse oximeter See Rx Instructions .Route .MEDSUPPLY Qty: 1 0RF Rx Instructions: As directed fexofenadine [Elisabeth Allergy] 180 mg tablet 180 mg PO DAILY Qty: 30 3RF glucose 4 gram tablet,chewable 16 g PO Q15M MDD 8 tabs PRN (Reason: hypoglycemia) Qty: 100 1RF Rx Instructions: until symptoms of low blood sugar are controlled (DME) FreeStyle Jemima 3 Plus Sensor Device See Rx Instructions .Route Qty: 2 5RF Rx Instructions: To monitor blood sugars 4 times per day. Change sensor every 15 days (DME) FreeStyle Jemima 3 [place] Misc See Rx Instructions .Route Qty: 1 0RF Rx Instructions: To monitor blood sugar 4 times per day ibuprofen 800 mg tablet 800 mg PO BID PRN (Reason: Headache) 30 Days Qty: 60 0RF Rx Instructions: please use sparingly due to diabetes acetaminophen 650 mg tablet extended release 650 mg PO Q12H PRN (Reason: pain) 30 Days Qty: 60 0RF gabapentin 800 mg tablet 800 mg PO QID 30 Days Qty: 120 0RF sertraline 100 mg tablet 150 mg PO DAILY 90 Days Qty: 135 0RF calcium carbonate-vitamin D3 500 mg-10 mcg (400 unit) tablet 1 tab PO DAILY albuterol sulfate 2.5 mg /3 mL (0.083 %) solution for nebulization 2.5 mg inhalation Q4H PRN (Reason: Shortness Of Breath/Wheezing) (NATHALIE) mary anne Marrufo See Rx Instructions .Route Qty: 1 0RF Rx Instructions: As directed losartan 50 mg tablet 50 mg PO DAILY ipratropium-albuterol 0.5 mg-3 mg(2.5 mg base)/3 mL solution for nebulization 3 ml INHALATION TID Stiolto Respimat 2.5-2.5 mcg/actuation mist 2 puff INHALATION DAILY nicotine 21 mg/24 hr patch 24 hour 1 patch transdermal Q24H Qty: 28 0RF tramadol 50 mg tablet 50 mg PO Q6H PRN (Reason: pain) Qty: 20 0RF esomeprazole magnesium 40 mg capsule,delayed release(DR/EC) 40 mg PO DAILY@0630 atorvastatin 40 mg tablet 40 mg PO BEDTIME Qty: 90 0RF tizanidine 4 mg tablet 4 mg PO Q12H Rx Instructions: do not take concurrently with famotidine prednisone 20 mg tablet 40 mg PO DAILY 5 Days Qty: 10 0RF Discharge Orders: Discharge Order (Routine); Ordered 10/22/24 Ordered By: Pierre Agustin Diet: Advance to usual diet Activity on Discharge: As tolerated Stand Alone Forms: Patient Portal Discharge page Print Language: Yakut Care Plan Goals: recovery Health Concerns: copd, stress cardiomyopathy - rule out ischemic Plan of Treatment: prednisone avoid cocaine follow up with cardiology Assessment: see above
--- NOTE | 2024-10-22 10:36 | MHC.CM.PN ---
Pt is medically cleared for discharge home with resumption of previous [facility] [employer] services, home O2 through [facility] and new [facility] services, she will transport home via [facility] today.
--- NOTE | 2024-10-22 10:37 | P.F2F_ITS ---
Service Date Service Date: 10/22/24 Encounter Date of encounter: 10/22/24 Reasons for Services Signs and symptoms assessed: sob on exertion Reason for retirement: medication management, medication treatment and teach disease management Homebound: Leaving the home is medically contraindicated at this time without the asist of a device and/or another person due th the listed conditions above and below. Reason homebound: shortness of breath with minimal effort Certification: Based on the above findings, I certify that this patient is confined to the home and needs intermittent retirement care, physical therapy and/or speech therapy, or continues to need occupational therapy. The patient is under my care, and I have initiated the establishment of the plan of care. The patient will be followed by a physician who will periodically review the plan of care. Time Spent With Patient Time: Total time managing care of this patient today ____ minutes.
--- NOTE | 2024-10-22 14:15 | MHC.RECOVRN ---
Pt discharged prior to being seen. Addiction provider, Richa Winston APRN, sent rx for topiramate to pts pharmacy. T/w contacted the [facility] in order for them to reach out to pt to schedule follow up appt. MQ aware.
== END 2024-10-22 10:52 | disposition home or self-care (01) | DRG 140 ==
LOC: HO.ED 10-21 01:21 → HO.EDOVER 10-21 01:24 → HO.ICU 10-21 01:30 → HO.IMC 10-21 14:04
PROVIDERS: Internal Medicine Pulmonary Disease; Admitting Provider Nurse Practitioner Family; Emergency Provider Emergency Medicine; PCP Nurse Practitioner Family; Visit Provider Internal Medicine
DX: J43.9 Emphysema, unspecified (principal); J96.01 Acute respiratory failure with hypoxia; I11.0 Hypertensive heart disease with heart failure; I50.22 Chronic systolic (congestive) heart failure; F17.210 Nicotine dependence, cigarettes, uncomplicated; Z71.6 Tobacco abuse counseling; E66.9 Obesity, unspecified; K22.70 Barrett's esophagus without dysplasia; Z68.35 Body mass index [BMI] 35.0-35.9, adult; F14.10 Cocaine abuse, uncomplicated; G47.33 Obstructive sleep apnea (adult) (pediatric); Z91.199 Patient's noncompliance with other medical treatment and regimen due to unspecified reason; Z99.81 Dependence on supplemental oxygen; Z79.82 Long term (current) use of aspirin; Z79.84 Long term (current) use of oral hypoglycemic drugs; Z79.899 Other long term (current) drug therapy
CPT/HCPCS: 36415; 71045; 80048; 80053; 80307; 82040; 82803; 82947; 83605; 83735; 83880; 84100; 84484; 85025; 87040; 93005; 94660; 99285; J1644; J1938; J2543; J2919; J3475

== ENCOUNTER → 2024-10-21 00:08 | Outpatient (BNV) | payer OTHER, SELFPAY | PROVIDERS: Admitting Provider Nurse Practitioner Family; Emergency Provider Emergency Medicine; PCP Nurse Practitioner Family; Visit Provider Internal Medicine | DX: I51.7 Cardiomegaly (principal); R00.0 Tachycardia, unspecified | CPT/HCPCS: 93010 ==

== ENCOUNTER → 2024-10-21 00:20 | Outpatient (BNV) | payer OTHER, SELFPAY | PROVIDERS: Admitting Provider Nurse Practitioner Family; Emergency Provider Emergency Medicine; PCP Nurse Practitioner Family; Visit Provider Specialist | DX: R06.00 Dyspnea, unspecified (principal) | CPT/HCPCS: 71045 ==

== ENCOUNTER → 2024-10-21 01:16 | Outpatient (BNV) | payer OTHER, SELFPAY | PROVIDERS: Admitting Provider Nurse Practitioner Family; Emergency Provider Emergency Medicine; PCP Nurse Practitioner Family; Visit Provider Nurse Practitioner Psychiatric/Mental Health | DX: F14.10 Cocaine abuse, uncomplicated (principal) | CPT/HCPCS: 99222 ==

== ENCOUNTER → 2024-10-21 01:16 | Outpatient (BNV) | payer OTHER, SELFPAY | PROVIDERS: Admitting Provider Nurse Practitioner Family; Emergency Provider Emergency Medicine; PCP Nurse Practitioner Family; Visit Provider Internal Medicine | DX: F14.10 Cocaine abuse, uncomplicated (principal) | CPT/HCPCS: 99239; G0180 ==

== ENCOUNTER → 2024-10-21 01:16 | Outpatient (BNV) | payer OTHER, SELFPAY | PROVIDERS: Admitting Provider Nurse Practitioner Family; Emergency Provider Emergency Medicine; PCP Nurse Practitioner Family; Visit Provider Nurse Practitioner Family | DX: A41.9 Sepsis, unspecified organism (principal); R65.20 Severe sepsis without septic shock; J96.01 Acute respiratory failure with hypoxia; J96.02 Acute respiratory failure with hypercapnia; J44.1 Chronic obstructive pulmonary disease with (acute) exacerbation; Z72.0 Tobacco use; F14.10 Cocaine abuse, uncomplicated | CPT/HCPCS: 99223 ==

== ENCOUNTER 2024-10-23 15:52 | Emergency (ER) | payer OTHER, SELFPAY ==
--- NOTE | 2024-10-23 | ECG_ITS ---
Test Reason : SOB Blood Pressure : */* mmHG Vent. Rate : 98 BPM Atrial Rate : 98 BPM P-R Int : 116 ms QRS Dur : 94 ms QT Int : 334 ms P-R-T Axes : 66 135 78 degrees QTcB Int : 426 ms Sinus rhythm with marked sinus arrhythmia Right axis deviation Right ventricular hypertrophy Nonspecific T wave abnormality Abnormal ECG When compared with ECG of 21-Oct-2024 00:08, No significant change was found Referred By: Generic ED Physician Electronically Signed By: DAVIS WALKER
--- NOTE | ~2024-10-23 | XR_ITS ---
CLINICAL HISTORY: pain 1 view chest x-ray Comparison: 10/21/2024 Findings: The heart is enlarged. No consolidation, significant pleural effusion or pneumothorax. The right costophrenic angle is not included. Stable bilateral mild interstitial changes. No acute fracture. IMPRESSION: 1. No acute findings. This document has been electronically signed by: Fidencio Kumar MD on 10/23/2024 17:03:11
[2024-10-23 15:56] VITALS: BP 101/56; PULSE 95; O2SAT 93
[2024-10-23 16:01] VITALS: BP 95/52; PULSE 93; RESP 16; TEMP 36.4; O2SAT 94; BMI 32.1
--- NOTE | 2024-10-23 16:23 | ED_ITS ---
HPI - Chest Pain General Chief Complaint: Chest Pain Stated Complaint: chest pain Time Seen by Provider: 10/23/24 16:20 Source: patient Limitations: no limitations History of Present Illness ED Provider: Jocy Ni PA-C HPI narrative: 54-year-old female with a history of COPD on 2-3 L nasal cannula at baseline, CHF, diabetes, hyperlipidemia, hypertension, GERD, esophageal dysmotility tobacco abuse, cocaine use disorder, who presents with chest pain prior to arrival. Patient states she developed anterior chest tightness prior to arrival. Patient states she took 324 mg of aspirin, when EMS arrived they administered 1 dose of sublingual nitroglycerin, her symptoms have resolved. Denies shortness of breath, orthopnea, unintentional weight gain or new peripheral edema. Denies recent cough or cold symptoms, no fevers. Related Data Home Medications ?Medication ?Instructions ?Recorded ?Confirmed calcium 500 mg (as 1 tab PO DAILY 06/26/24 10/21/24 carbonate)-vitamin D3 10 mcg (400 unit) tablet albuterol sulfate 2.5 mg/3 mL 2.5 mg inhalation Q4H PRN 07/13/24 10/21/24 (0.083 %) solution for nebulization Shortness Of Breath/Wheezing losartan 50 mg tablet 50 mg PO DAILY 07/17/24 10/21/24 ipratropium 0.5 mg-albuterol 3 mg 3 ml inhalation TID 09/30/24 10/21/24 (2.5 mg base)/3 mL nebulization soln tiotropium 2.5 mcg-olodaterol 2.5 2 puff inhalation DAILY 09/30/24 10/21/24 mcg/actuation mist for inhalation (Stiolto Respimat) esomeprazole magnesium 40 mg 40 mg PO DAILY@0630 10/17/24 10/21/24 capsule,delayed release tizanidine 4 mg tablet 4 mg PO Q12H muscle spasm 10/21/24 10/21/24 Previous Rx's ?Medication ?Instructions ?Recorded lancets 28 gauge (FreeStyle #100 ea 01/20/21 Lancets) 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 meter (FreeStyle #1 ea 03/01/22 Lite Meter kit) blood sugar diagnostic (FreeStyle #100 ea 09/16/22 Lite Strips) furosemide 20 mg tablet 20 mg PO DAILY #90 tabs 12/09/23 aspirin 81 mg tablet,delayed 81 mg PO DAILY 90 days #90 tabs 01/01/24 release theophylline 400 mg 400 mg PO BID 90 days #180 tabs 01/27/24 tablet,extended release 24 hr albuterol sulfate 90 mcg/actuation 2 puff inhalation Q6H PRN for 04/10/24 aerosol inhaler (Ventolin HFA) wheezing #1 ea walker #1 ea 07/14/24 glipizide 5 mg tablet 5 mg PO DAILY #90 tabs 08/05/24 Rollator walker #1 ea 09/16/24 cane #1 ea 09/16/24 pulse oximeter #1 ea 09/16/24 fexofenadine 180 mg tablet 180 mg PO DAILY #30 tabs 09/17/24 (Elisabeth Allergy) FreeStyle Jemima 3 Plus Sensor #2 ea 09/22/24 (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 sensor) FreeStyle Jemima 3 [place] #1 ea 09/22/24 (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,subscription agent,cont) glucose 4 gram chewable tablet 16 g (4 x 4 gram) PO Q15M PRN 09/22/24 hypoglycemia #100 tabs nicotine 21 mg/24 hr daily 1 patch transdermal Q24H #28 ea 10/01/24 transdermal patch acetaminophen 650 mg 650 mg PO Q12H PRN pain 30 days 10/05/24 tablet,extended release #60 tabs gabapentin 800 mg tablet 800 mg PO QID Pain 30 days #120 10/05/24 tabs ibuprofen 800 mg tablet 800 mg PO BID PRN Headache 30 days 10/05/24 #60 tabs tramadol 50 mg tablet 50 mg PO Q6H PRN pain #20 tabs 10/12/24 sertraline 100 mg tablet 150 mg (1.5 x 100 mg) PO DAILY 90 10/13/24 days #135 tabs atorvastatin 40 mg tablet 40 mg PO BEDTIME #90 tabs 10/18/24 prednisone 20 mg tablet 40 mg (2 x 20 mg) PO DAILY 5 days 10/22/24 #10 tabs topiramate 25 mg tablet 25 mg PO BID #14 tabs 10/22/24 prednisone 20 mg tablet 20 mg PO BID #10 tabs 10/25/24 Allergies Allergy/AdvReac Type Severity Reaction Status Date / Time doxycycline Allergy Severe Swelling Verified 10/25/24 08:12 varenicline [From CHANTIX] Allergy Severe ANAPHYLAXIS Verified 10/25/24 08:12 azithromycin Allergy Intermediate Rash Verified 10/25/24 08:12 barium sulfate Allergy Intermediate angioedema Verified 10/25/24 08:12 cetirizine Allergy Mild Rash Verified 10/25/24 08:12 famotidine Allergy Mild Rash Verified 10/25/24 08:12 linaclotide [Linzess] Allergy Mild Rash Verified 10/25/24 08:12 Review of Systems 2 Review of Systems: Yes all other systems are reviewed and are negative Constitutional: Constitutional: Denies fatigue and Denies fever(s) Cardiovascular: Cardiovascular: Reports chest pain and Denies dyspnea Respiratory: Respiratory: Denies chest congestion, Denies cough, Denies dyspnea and Denies wheezing Gastrointestinal: Gastrointestinal: Denies abdominal pain, Denies diarrhea, Denies nausea and Denies vomiting Endocrine: Endocrine: Denies fatigue Allergic/Immunologic: Allergic/Immunologic: Denies wheezing PMFSH Past Medical History Attestation statement: The following information was validated with the patient. Medical History Cocaine use disorder Cocaine abuse GERD (gastroesophageal reflux disease) Constipation Non-insulin dependent type 2 diabetes mellitus HENRY (obstructive sleep apnea) Acute exacerbation of chronic obstructive airways disease Asthma with exacerbation Obesity hypoventilation syndrome COPD (chronic obstructive pulmonary disease) Chronic lung disease Hypoxic respiratory failure Nocturnal hypoxemia Diabetes mellitus COPD exacerbation Crack cocaine use Hyperkalemia Metabolic acidosis Leukocytosis Chest discomfort Chronic renal failure, stage 2 (mild) SOB (shortness of breath) Asthma Smoker Rotator cuff tendonitis GERD (gastroesophageal reflux disease) Chronic idiopathic constipation Bustos's esophagus Depression High triglycerides Gastroparesis Carpal tunnel syndrome of right wrist Nausea & vomiting Hernia Acute and chronic respiratory failure, unspecified whether with hypoxia or hypercapnia HTN (hypertension) Obesity (BMI 30-39.9) Knee pain, bilateral Surgical History History of cholecystectomy (~1988) History of carpal tunnel release Hx of tubal ligation History of pubovaginal sling (~2015) History of umbilical hernia repair (~2001) Hx of section History of open reduction and internal fixation (ORIF) procedure History of esophagogastroduodenoscopy (EGD) Family History Family History Father Heart disease HENRY (obstructive sleep apnea) Family history of breast cancer Mother Asthma Emphysema, unspecified Bronchitis Smoker Alcoholism Bone marrow disease Maternal Grandmother Diabetes Social History Social History Household Members: Other Household Members Other:: sister Housing: House Are you a primary ocular care aide to a significant other at home: No Do you presently have visiting nurse or other home services: Yes Unable to assess alcohol history related to: Unknown Alcohol intake: unknown Comment: Sleeping Patient Tobacco Use Status: Current everyday Tobacco user Tobacco use type: Cigarette Cigarette Packs Per Day: 0.5 Cigarettes Per Day: 10.0 Years Smoked: 40? Smoked in Last 30 Days: Yes e-Cigarette/Vaping Use: Never Used Second Hand Smoke Exposure: No Use of substances other than those prescribed or required for medical reasons: Unknown Substance Use Type: Crack/Cocaine Advance Directives: Yes Advance Directives on File: Yes Advance Directives Date on File: 12/19/23 Do you have a plan to hurt others: No Plan Patient : No service: No Current occupational status: disabled 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 Physical Exam 2 Vital Signs: Vital Signs: Last Vital Signs Temp 97.3 F 10/23/24 21:28 Pulse 85 10/23/24 21:28 Resp 20 10/23/24 21:28 BP 122/77 10/23/24 21:28 Pulse Ox 97 10/23/24 21:28 O2 Del Method Nasal Cannula 10/23/24 21:28 O2 Flow Rate 2 10/23/24 21:28 Oxygen Flow Rate 2 10/23/24 16:01 BMI result Body Mass Index 32.1 Const: Other: Alert Medications Administered Discontinued Medications Generic Name Dose Route Start Last Admin Trade Name Freq PRN Reason Stop Dose Admin Albuterol Sulfate 4 puff 10/23/24 21:06 10/23/24 21:18 Albuterol Sulfate 90 Mcg 8 Gm Inhaler INHALE 10/23/24 21:07 4 puff ONCE ONE Administration Hydroxyzine HCl 50 mg 10/23/24 20:19 10/23/24 20:31 Hydroxyzine Hcl 50 Mg Tablet PO 10/23/24 20:20 50 mg ONCE ONE Administration Medical Decision Making Medical Decision Making MDM Narrative: 54-year-old female with a history of COPD on 2-3 L nasal cannula at baseline, CHF, diabetes, hyperlipidemia, hypertension, GERD, esophageal dysmotility tobacco abuse, cocaine use disorder, who presents with chest pain prior to arrival. Patient states she developed anterior chest tightness prior to arrival. Patient states she took 324 mg of aspirin, when EMS arrived they administered 1 dose of sublingual nitroglycerin, her symptoms have resolved. Denies shortness of breath, orthopnea, unintentional weight gain or new peripheral edema. Denies recent cough or cold symptoms, no fevers. Problem: COPD, heart failure, diabetes, cocaine abuse, ongoing tobacco abuse, GERD with a esophageal dysmotility History: Per patient I have considered the following differential diagnoses: Exacerbation of esophageal dysmotility, ACS, pneumonia, COPD exacerbation, heart failure exacerbation Plan: Patient was at her baseline oxygen requirement, without wheezing, no recent viral syndrome or fever, this is not COPD exacerbation. ACS was considered, the patient does have risk factors for coronary artery disease, screening labs including troponin EKG and chest x-ray we will be obtained. The patient was currently chest pain free. Thought about heart failure exacerbation, however she is not overtly hypertensive, she is not volume overloaded on exam, we will add a BNP. Her symptoms may very well be secondary to her esophageal dysmotility, the nitroglycerin would have a positive effect to alleviate symptoms. I have independently reviewed the following tests: Labs: Chronic leukocytosis, not anemic, no electrolyte abnormality noted, CO2 at her baseline, troponin 17.5, delta troponin 19.1 EKG: Sinus rhythm, rate of 98, sinus arrhythmia noted, no ischemic changes, no change from recent study just days ago Chest x-ray:Findings: The heart is enlarged. No consolidation, significant pleural effusion or pneumothorax. The right costophrenic angle is not included. Stable bilateral mild interstitial changes. No acute fracture. IMPRESSION: 1. No acute findings. Lab Data 10/23/24 16:50 10/23/24 16:50 Labs: Lab Results 10/23/24 10/23/24 Range/Units 16:50 18:53 WBC 19.3 H (4.8-10.8) X10*3/uL RBC 4.46 (4.20-5.50) X10*6/uL Hgb 10.3 L (12.0-16.0) g/dl Hct 34.3 L (37.0-47.0) % MCV 76.9 L (80.0-98.0) fL MCH 23.1 L (27.0-33.0) pg MCHC 30.0 L (31.0-35.0) g/dl RDW 18.6 H (11.0-16.0) % Plt Count 417 H (160-400) X10*3/uL MPV 8.9 L (9.4-12.3) fL Immature Gran % (Auto) 1.7 H (0.0-0.4) % Neut % (Auto) 80.6 H (45-73) % Lymph % (Auto) 12.3 L (20-40) % [place] % (Auto) 5.2 (2-11) % Eos % (Auto) 0.0 (0-4) % Baso % (Auto) 0.2 (0-2) % Lymph # (Auto) 2.4 (1.2-4.9) X10*3/uL [place] # (Auto) 1.0 (0.1-1.2) X10*3/uL Eos # (Auto) 0.0 (0.0-0.4) X10*3/uL Baso # (Auto) 0.0 (0.0-0.2) X10*3/uL Abs Immat Gran (auto) 0.32 H (0.00-0.03) X10*3/uL Absolute Neuts (auto) 15.6 H (2.0-8.3) x10*3/uL Absolute Nucleated RBC 0.000 (0.0-0.012) X10*3/uL Nucleated RBC % (auto) 0.0 (0.0-0.2) /100WBC Sodium 138 (135-145) mmol/L Potassium 4.7 (3.3-5.1) mmol/L Chloride 101 (96-108) mmol/L Carbon Dioxide 30 H (22-29) mmol/L Anion Gap 12 (12-20) BUN 37 H (9-16) mg/dL Creatinine 1.13 (0.5-1.4) mg/dL Estim Creat Clear Calc 48.0 Estimated GFR 50 Random Glucose 119 H (60-115) mg/dL Calcium 9.0 (8.4-10.2) mg/dL Magnesium 1.9 (1.6-2.6) mg/dL Troponin I High Sens 17.5 H 19.1 H (<3.5-17.0) ng/L B-Natriuretic Peptide 89 (<100) pg/mL Discharge Plan Discharge Clinical Impression: Chest pain Patient Disposition: Home, Self-Care Instructions: Noncardiac Chest Pain (ED) Additional Instructions: All of your screening labs including 2 cardiac enzymes were normal, there were no concerning changes on her EKG in your chest x-ray is clear. Continue to follow up with your primary care provider in regard to your chest discomfort. Prescriptions: No Action (DME) lancets [FreeStyle Lancets] 28 gauge misc See Rx Instructions .ROUTE .MEDSUPPLY Qty: 100 1RF Rx Instructions: Use to check blood sugar daily or if symptomatic hypo/hypergylcemia (DME) 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 meter [FreeStyle Lite Meter] Kit See Rx Instructions .ROUTE .MEDSUPPLY Qty: 1 0RF Rx Instructions: Use to check blood sugar daily or if symptomatic for hypo/hyperglycemia (DME) FreeStyle Lite Strips Strip See Rx Instructions .ROUTE .MEDSUPPLY Qty: 100 1RF Rx Instructions: Use to check blood sugar daily or if symptomatic hypo/hypergylcemia furosemide 20 mg tablet 20 mg PO DAILY Qty: 90 3RF aspirin 81 mg tablet,delayed release (DR/EC) 81 mg PO DAILY 90 Days Qty: 90 1RF theophylline 400 mg tablet extended release 24 hr 400 mg PO BID 90 Days Qty: 180 4RF albuterol sulfate [Ventolin HFA] 90 mcg/actuation HFA aerosol inhaler 2 puff inhalation Q6H PRN (Reason: for wheezing) Qty: 1 6RF glipizide 5 mg tablet 5 mg PO DAILY Qty: 90 1RF (DME) cane Device See Rx Instructions .Route Qty: 1 0RF Rx Instructions: Standard cane (DME) Rollator walker See Rx Instructions .Route .MEDSUPPLY Qty: 1 0RF Rx Instructions: As directed (DME) pulse oximeter See Rx Instructions .Route .MEDSUPPLY Qty: 1 0RF Rx Instructions: As directed fexofenadine [Elisabeth Allergy] 180 mg tablet 180 mg PO DAILY Qty: 30 3RF glucose 4 gram tablet,chewable 16 g PO Q15M MDD 8 tabs PRN (Reason: hypoglycemia) Qty: 100 1RF Rx Instructions: until symptoms of low blood sugar are controlled (DME) FreeStyle Jemima 3 Plus Sensor Device See Rx Instructions .Route Qty: 2 5RF Rx Instructions: To monitor blood sugars 4 times per day. Change sensor every 15 days (DME) FreeStyle Jemima 3 [place] Misc See Rx Instructions .Route Qty: 1 0RF Rx Instructions: To monitor blood sugar 4 times per day ibuprofen 800 mg tablet 800 mg PO BID PRN (Reason: Headache) 30 Days Qty: 60 0RF Rx Instructions: please use sparingly due to diabetes acetaminophen 650 mg tablet extended release 650 mg PO Q12H PRN (Reason: pain) 30 Days Qty: 60 0RF gabapentin 800 mg tablet 800 mg PO QID 30 Days Qty: 120 0RF sertraline 100 mg tablet 150 mg PO DAILY 90 Days Qty: 135 0RF calcium carbonate-vitamin D3 500 mg-10 mcg (400 unit) tablet 1 tab PO DAILY albuterol sulfate 2.5 mg /3 mL (0.083 %) solution for nebulization 2.5 mg inhalation Q4H PRN (Reason: Shortness Of Breath/Wheezing) (DME) mary anne Misc See Rx Instructions .Route Qty: 1 0RF Rx Instructions: As directed prednisone 20 mg tablet 20 mg PO BID Qty: 10 0RF losartan 50 mg tablet 50 mg PO DAILY ipratropium-albuterol 0.5 mg-3 mg(2.5 mg base)/3 mL solution for nebulization 3 ml INHALATION TID Stiolto Respimat 2.5-2.5 mcg/actuation mist 2 puff INHALATION DAILY nicotine 21 mg/24 hr patch 24 hour 1 patch transdermal Q24H Qty: 28 0RF tramadol 50 mg tablet 50 mg PO Q6H PRN (Reason: pain) Qty: 20 0RF esomeprazole magnesium 40 mg capsule,delayed release(DR/EC) 40 mg PO DAILY@0630 atorvastatin 40 mg tablet 40 mg PO BEDTIME Qty: 90 0RF tizanidine 4 mg tablet 4 mg PO Q12H Rx Instructions: do not take concurrently with famotidine prednisone 20 mg tablet 40 mg PO DAILY 5 Days Qty: 10 0RF topiramate 25 mg tablet 25 mg PO BID Qty: 14 0RF Interventions: ED Discharge Assessment Last Done: 10/23/24 21:28 Discharge Date/Time: 10/23/24 21:40 Print Language: Citizen [place]
[2024-10-23 16:54] LABS: MANUAL DIFF FLAG NO
[2024-10-23 16:56] LABS: Basophils Percent Auto 0.2 % (0-2); Hematocrit 34.3 % (37.0-47.0); Hemoglobin 10.3 g/dl (12.0-16.0); Imm Gran Abs Auto 0.32 X10*3/uL (0.00-0.03); Imm Gran Pct Auto 1.7 % (0.0-0.4); Lymphocytes Absolute Auto 2.4 X10*3/uL (1.2-4.9); Lymphocytes Percent Auto 12.3 % (20-40); Mean Corpuscular Hemoglobin 23.1 pg (27.0-33.0); Mean Corpuscular Volume 76.9 fL (80.0-98.0); Mean Platelet Volume 8.9 fL (9.4-12.3); Monocytes Percent Auto 5.2 % (2-11); Neutrophils Absolute Auto 15.6 x10*3/uL (2.0-8.3); Neutrophils Percent Auto 80.6 % (45-73); Platelet Count 417 X10*3/uL (160-400); Red Blood Count 4.46 X10*6/uL (4.20-5.50); Red Cell Distribution Width 18.6 % (11.0-16.0); White Blood Count 19.3 X10*3/uL (4.8-10.8)
[2024-10-23 17:08] LABS: Magnesium 1.9 mg/dL (1.6-2.6)
[2024-10-23 17:10] LABS: Anion Gap 12 (12-20); Blood Urea Nitrogen 37 mg/dL (9-16); Carbon Dioxide 30 mmol/L (22-29); Chloride 101 mmol/L (96-108); Estimated Glomerular Filt Rate 50; Glucose Random 119 mg/dL (60-115); Potassium 4.7 mmol/L (3.3-5.1); Sodium 138 mmol/L (135-145)
[2024-10-23 17:15] LABS: B Type Natriuretic Peptide 89 pg/mL (<100)
[2024-10-23 17:16] LABS: Troponin-I High Sensitivity 17.5 ng/L (<3.5-17.0)
[2024-10-23 18:01] VITALS: BP 121/65; PULSE 99; RESP 20; TEMP 36.6; O2SAT 98
[2024-10-23 18:05] VITALS: BP 132/63; PULSE 103; RESP 20; O2SAT 96
[2024-10-23 18:20] VITALS: BP 122/77; PULSE 85; RESP 20; O2SAT 97
[2024-10-23 19:20] LABS: Troponin-I High Sensitivity 19.1 ng/L (<3.5-17.0)
--- NOTE | 2024-10-23 19:50 | PC.NURSE ---
IVANA Goetz at bedside speaking with the patient. Plan for discharge home.
[2024-10-23] MEDS: hydrOXYzine HCL 50 MG TABLET PO (20:31)
--- NOTE | 2024-10-23 20:34 | PC.NURSE ---
Patient medicated per request with Atarax 50mg PO for anxiety. Patient is now in bathroom. Awaiting EMS transport home.
--- NOTE | 2024-10-23 21:06 | PC.NURSE ---
Patient requesting a breathing treatment . IVANA Ni aware.
[2024-10-23] MEDS: Albuterol Sulfate 90 MCG 8 GM INHALER 4 PUFF INHALE (21:18)
[2024-10-23 21:28] VITALS: BP 122/77; PULSE 85; RESP 20; TEMP 36.3; O2SAT 97
== END 2024-10-23 21:40 | disposition home or self-care (01) ==
PROVIDERS: Physician Assistant Medical; Emergency Provider Emergency Medicine
DX: R07.9 Chest pain, unspecified (principal); E11.9 Type 2 diabetes mellitus without complications; I10 Essential (primary) hypertension; E78.5 Hyperlipidemia, unspecified; J44.9 Chronic obstructive pulmonary disease, unspecified; Z99.81 Dependence on supplemental oxygen; F17.210 Nicotine dependence, cigarettes, uncomplicated; Z79.82 Long term (current) use of aspirin; Z79.02 Long term (current) use of antithrombotics/antiplatelets; Z79.899 Other long term (current) drug therapy
CPT/HCPCS: 36415; 71045; 80048; 83735; 83880; 84484; 85025; 93005; 99284; 99285

== ENCOUNTER → 2024-10-23 16:20 | Outpatient (BNV) | payer OTHER, SELFPAY | PROVIDERS: Emergency Provider Emergency Medicine; Visit Provider Nuclear Medicine | DX: R07.9 Chest pain, unspecified (principal) | CPT/HCPCS: 71045 ==

== ENCOUNTER → 2024-10-23 16:30 | Outpatient (BNV) | payer OTHER, SELFPAY | PROVIDERS: Emergency Provider Emergency Medicine; Visit Provider Internal Medicine | DX: I49.9 Cardiac arrhythmia, unspecified (principal); I51.7 Cardiomegaly | CPT/HCPCS: 93010 ==

== ENCOUNTER 2024-10-25 07:16 | Emergency (ER) | payer OTHER, SELFPAY ==
--- NOTE | ~2024-10-25 | XR_ITS ---
CLINICAL HISTORY: SOB 1 view chest x-ray. Comparison: CR - XR CHEST 1V - 10/23/24 16:37 EDT Findings: Normal lung volumes. Stable interstitial thickening. No airspace disease. No pneumothorax or pleural effusion. Mild cardiomegalystable. No midline shift or tracheal deviation. No acute fracture. Impression: 1. Stable mild cardiomegaly with interstitial thickening. No airspace disease. This document has been electronically signed by: Hugo Little MD on 10/25/2024 09:12:21
--- NOTE | 2024-10-25 07:31 | ED_ITS ---
HPI - SOB/Dyspnea General Chief Complaint: Dyspnea Stated Complaint: SOB Time Seen by Provider: 10/25/24 07:31 Source: patient, EMS and old records reviewed Mode of arrival: EMS Limitations: no limitations History of Present Illness ED Provider: DR. De Leon HPI Narrative: 54-year-old female with PMH of non insulin-dependent diabetes, HENRY, hypertension, hyperlipidemia, COPD/emphysema use CPAP at home patient is not compliant with the machine. with current nicotine use 1 pack per day of cigarettes, cocaine use, obesity, GERD, Bustos's esophagus, in her last admission was diagnosed with CHFrEF and was started on Lasix, presented by EMS for evaluation of shortness of breath that persist after patient used 4 nebs at home, patient had a recent 3 admissions this month. Related Data Home Medications ?Medication ?Instructions ?Recorded ?Confirmed calcium 500 mg (as 1 tab PO DAILY 06/26/24 10/21/24 carbonate)-vitamin D3 10 mcg (400 unit) tablet albuterol sulfate 2.5 mg/3 mL 2.5 mg inhalation Q4H PRN 07/13/24 10/21/24 (0.083 %) solution for nebulization Shortness Of Breath/Wheezing losartan 50 mg tablet 50 mg PO DAILY 07/17/24 10/21/24 ipratropium 0.5 mg-albuterol 3 mg 3 ml inhalation TID 09/30/24 10/21/24 (2.5 mg base)/3 mL nebulization soln tiotropium 2.5 mcg-olodaterol 2.5 2 puff inhalation DAILY 09/30/24 10/21/24 mcg/actuation mist for inhalation (Stiolto Respimat) esomeprazole magnesium 40 mg 40 mg PO DAILY@0630 10/17/24 10/21/24 capsule,delayed release tizanidine 4 mg tablet 4 mg PO Q12H muscle spasm 10/21/24 10/21/24 Previous Rx's ?Medication ?Instructions ?Recorded lancets 28 gauge (FreeStyle #100 ea 01/20/21 Lancets) 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 meter (FreeStyle #1 ea 03/01/22 Lite Meter kit) blood sugar diagnostic (FreeStyle #100 ea 09/16/22 Lite Strips) furosemide 20 mg tablet 20 mg PO DAILY #90 tabs 12/09/23 aspirin 81 mg tablet,delayed 81 mg PO DAILY 90 days #90 tabs 01/01/24 release theophylline 400 mg 400 mg PO BID 90 days #180 tabs 01/27/24 tablet,extended release 24 hr albuterol sulfate 90 mcg/actuation 2 puff inhalation Q6H PRN for 04/10/24 aerosol inhaler (Ventolin HFA) wheezing #1 ea walker #1 ea 07/14/24 glipizide 5 mg tablet 5 mg PO DAILY #90 tabs 08/05/24 Rollator walker #1 ea 09/16/24 cane #1 ea 09/16/24 pulse oximeter #1 ea 09/16/24 fexofenadine 180 mg tablet 180 mg PO DAILY #30 tabs 09/17/24 (Elisabeth Allergy) FreeStyle Jemima 3 Plus Sensor #2 ea 09/22/24 (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 sensor) FreeStyle Jemima 3 [place] #1 ea 09/22/24 (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,branch sales manager,cont) glucose 4 gram chewable tablet 16 g (4 x 4 gram) PO Q15M PRN 09/22/24 hypoglycemia #100 tabs nicotine 21 mg/24 hr daily 1 patch transdermal Q24H #28 ea 10/01/24 transdermal patch acetaminophen 650 mg 650 mg PO Q12H PRN pain 30 days 10/05/24 tablet,extended release #60 tabs gabapentin 800 mg tablet 800 mg PO QID Pain 30 days #120 10/05/24 tabs ibuprofen 800 mg tablet 800 mg PO BID PRN Headache 30 days 10/05/24 #60 tabs tramadol 50 mg tablet 50 mg PO Q6H PRN pain #20 tabs 10/12/24 sertraline 100 mg tablet 150 mg (1.5 x 100 mg) PO DAILY 90 10/13/24 days #135 tabs atorvastatin 40 mg tablet 40 mg PO BEDTIME #90 tabs 10/18/24 prednisone 20 mg tablet 40 mg (2 x 20 mg) PO DAILY 5 days 10/22/24 #10 tabs topiramate 25 mg tablet 25 mg PO BID #14 tabs 10/22/24 prednisone 20 mg tablet 20 mg PO BID #10 tabs 10/25/24 Allergies Allergy/AdvReac Type Severity Reaction Status Date / Time doxycycline Allergy Severe Swelling Verified 10/25/24 08:12 varenicline [From CHANTIX] Allergy Severe ANAPHYLAXIS Verified 10/25/24 08:12 azithromycin Allergy Intermediate Rash Verified 10/25/24 08:12 barium sulfate Allergy Intermediate angioedema Verified 10/25/24 08:12 cetirizine Allergy Mild Rash Verified 10/25/24 08:12 famotidine Allergy Mild Rash Verified 10/25/24 08:12 linaclotide [Linzess] Allergy Mild Rash Verified 10/25/24 08:12 Review of Systems 2 Review of Systems: All other systems are reviewed and are negative Constitutional: Reports as per HPI and Reports no additional constitutional complaints Eyes: Reports as per HPI and Reports no additional eye complaints Reports system reviewed and no additional complaints, except as documented Cardiovascular: Reports as per HPI and Reports no additional cardiovascular complaints Respiratory: Reports as per HPI and Reports no additional respiratory complaints Gastrointestinal: Reports as per HPI and Reports no additional gastrointestinal complaints Genitourinary: Reports no additional female genitourinary complaints Musculoskeletal: Reports no additional musculoskeletal complaints Skin/Breast: Reports system reviewed and no additional complaints, except as docu Psychiatric: Reports no additional psychiatric complaints Endocrine: Reports no additional endocrine complaints Hematologic/Lymphatic: Reports no additional hematologic/lymphatic complaints Allergic/Immunologic: Reports no additional allergic/immunologic complaints Reports system reviewed and no additional complaints, except as documented and Reports Abnormal speech present PMFSH Past Medical History Medical History Cocaine use disorder Cocaine abuse GERD (gastroesophageal reflux disease) Constipation Non-insulin dependent type 2 diabetes mellitus HENRY (obstructive sleep apnea) Acute exacerbation of chronic obstructive airways disease Asthma with exacerbation Obesity hypoventilation syndrome COPD (chronic obstructive pulmonary disease) Chronic lung disease Hypoxic respiratory failure Nocturnal hypoxemia Diabetes mellitus COPD exacerbation Crack cocaine use Hyperkalemia Metabolic acidosis Leukocytosis Chest discomfort Chronic renal failure, stage 2 (mild) SOB (shortness of breath) Asthma Smoker Rotator cuff tendonitis GERD (gastroesophageal reflux disease) Chronic idiopathic constipation Bustos's esophagus Depression High triglycerides Gastroparesis Carpal tunnel syndrome of right wrist Nausea & vomiting Hernia Acute and chronic respiratory failure, unspecified whether with hypoxia or hypercapnia HTN (hypertension) Obesity (BMI 30-39.9) Knee pain, bilateral Surgical History History of cholecystectomy (~1988) History of carpal tunnel release Hx of tubal ligation History of pubovaginal sling (~2015) History of umbilical hernia repair (~2001) Hx of section History of open reduction and internal fixation (ORIF) procedure History of esophagogastroduodenoscopy (EGD) Family History Family History Father Heart disease HENRY (obstructive sleep apnea) Family history of breast cancer Mother Asthma Emphysema, unspecified Bronchitis Smoker Alcoholism Bone marrow disease Maternal Grandmother Diabetes Social History Social History Household Members: Other Household Members Other:: sister Housing: House Are you a primary child care center assistant director to a significant other at home: No Do you presently have visiting nurse or other home services: Yes Unable to assess alcohol history related to: Unknown Alcohol intake: unknown Comment: Sleeping Patient Tobacco Use Status: Current everyday Tobacco user Tobacco use type: Cigarette Cigarette Packs Per Day: 0.5 Cigarettes Per Day: 10.0 Years Smoked: 40? Smoked in Last 30 Days: Yes e-Cigarette/Vaping Use: Never Used Second Hand Smoke Exposure: No Use of substances other than those prescribed or required for medical reasons: Unknown Substance Use Type: Crack/Cocaine Advance Directives: Yes Advance Directives on File: Yes Advance Directives Date on File: 12/19/23 Do you have a plan to hurt others: No Plan Patient : No service: No Current occupational status: disabled 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 Physical Exam 2 Vital Signs: Vital Signs: Last Vital Signs Temp 98.6 F 10/25/24 10:16 Pulse 93 10/25/24 10:16 Resp 16 10/25/24 10:16 BP 134/75 10/25/24 10:16 Pulse Ox 91 L 10/25/24 10:16 O2 Del Method Nasal Cannula 10/25/24 10:16 O2 Flow Rate 2 10/25/24 10:16 BMI result Body Mass Index 34.9 Vital signs have been reviewed and appear to be correct. Blood pressure elevated. Heart rate normal. Respiratory rate normal. Temperature normal. Oxygen saturation normal. Appearance: Alert. Oriented X3. No acute distress. Head: Normal external exam. Normocephalic. Atraumatic. No Lyons signs noted. No raccoon eyes noted Eyes: PERRLA. EOMI. Conjunctiva and sclera normal. Eyelids normal. ENT: TM's Normal. Pharynx normal. Uvula midline. Moist mucous membranes. No trismus noted. No drooling noted. No muffled voice noted. Neck: Normal inspection. Neck supple. FROM. No adenopathy. Thyroid Normal. No meningeal signs. No neck mass noted. CVS: Normal heart rate and rhythm. Heart sound normal. No murmurs noted. Pulses normal throughout. Respiratory: No respiratory distress. Painless inspiration. Breath sounds normal. Diffuse expiratory wheezing with prolonged expiration. Chest nontender. No accessory muscle usage noted or decreased air movement noted. Abdomen: Soft and nontender. Bowel sounds normal in all 4 quadrants. No distention noted. No organomegaly noted. No visible injury noted. Back: No CVA tenderness. Full range of motion noted. Skin: Skin warm and dry. Normal skin color. Normal skin turgor. No rashes/lesions/lacerations noted. Extremities: No lower extremity edema. Extremities exhibit normal range of motion. Extremities nontender. Neuro: Oriented X 3. Cranial nerve exam: II-XII are grossly intact No motor deficit. No sensory deficit. Reflexes normal. Course Reevaluation(s) Reevaluation #1: Feels better, able to tolerate p.o. intake, satting at 91% on 2 L which her baseline, patient had multiple admission last week, today she feels better do not need admission, chest x-ray stable with no acute pathology. Time: 11:22 Medications Administered Discontinued Medications Generic Name Dose Route Start Last Admin Trade Name Freq PRN Reason Stop Dose Admin Albuterol Sulfate 5 mg 10/25/24 07:35 10/25/24 07:59 Albuterol Sulfate (0.083%) 2.5 Mg/3 Ml Vial.Neb INHALE 10/25/24 07:36 5 mg ONCE ONE Administration Albuterol/Ipratropium 3 ml 10/25/24 07:35 10/25/24 07:56 Albuterol/Iprat 2.5/0.5mg 3 Ml Ampul.Neb INHALE 10/25/24 07:36 3 ml ONCE ONE Administration Magnesium Sulfate 2 gm in 50 mls @ 25 mls/hr 10/25/24 07:35 10/25/24 10:12 Magnesium Sulfate/H2o IV 10/25/24 09:34 Infused ONCE ONE Infusion Methylprednisolone Sodium Succinate 125 mg 10/25/24 07:35 10/25/24 08:28 Methylprednisolone Sod Succ 125 Mg/2 Ml Vial IVPUSH 10/25/24 07:36 125 mg ONCE ONE Administration Medical Decision Making Differential Diagnosis Differential Diagnoses: The differential diagnosis associated with the presentation includes (Pneumonia, pneumothorax, pleural effusion, CHF, ACS, viral upper respiratory infection.) Admission/Observation Consideration of admission/observation: Escalation of care including admission/observation considered Lab Data [facility] Lab Attestation statement: I reviewed the patient's lab results. 10/25/24 08:09 10/25/24 08:10 Labs: Lab Results 10/25/24 10/25/24 10/25/24 Range/Units 08:09 08:10 08:15 WBC 18.1 H (4.8-10.8) X10*3/uL RBC 4.99 (4.20-5.50) X10*6/uL Hgb 11.3 L (12.0-16.0) g/dl Hct 38.4 (37.0-47.0) % MCV 77.0 L (80.0-98.0) fL MCH 22.6 L (27.0-33.0) pg MCHC 29.4 L (31.0-35.0) g/dl RDW 18.6 H (11.0-16.0) % Plt Count 425 H (160-400) X10*3/uL MPV 8.9 L (9.4-12.3) fL Immature Gran % (Auto) 0.9 H (0.0-0.4) % Neut % (Auto) 62.3 (45-73) % Lymph % (Auto) 27.5 (20-40) % [place] % (Auto) 7.9 (2-11) % Eos % (Auto) 1.2 (0-4) % Baso % (Auto) 0.2 (0-2) % Lymph # (Auto) 5.0 H (1.2-4.9) X10*3/uL [place] # (Auto) 1.4 H (0.1-1.2) X10*3/uL Eos # (Auto) 0.2 (0.0-0.4) X10*3/uL Baso # (Auto) 0.0 (0.0-0.2) X10*3/uL Abs Immat Gran (auto) 0.16 H (0.00-0.03) X10*3/uL Absolute Neuts (auto) 11.3 H (2.0-8.3) x10*3/uL Absolute Nucleated RBC 0.000 (0.0-0.012) X10*3/uL Nucleated RBC % (auto) 0.0 (0.0-0.2) /100WBC VBG pH 7.37 (7.32-7.43) VBG pCO2 70 mmHg VBG pO2 48 mmHg VBG HCO3 41 H (22-26) mmol/L VBG O2 Saturation 74.0 % VBG Base Excess 12.7 mmol/L Sodium 140 (135-145) mmol/L Potassium 4.1 (3.3-5.1) mmol/L Chloride 97 (96-108) mmol/L Carbon Dioxide 33 H (22-29) mmol/L Anion Gap 14 (12-20) BUN 24 H (9-16) mg/dL Creatinine 0.82 (0.5-1.4) mg/dL Estim Creat Clear Calc 66.3 Estimated GFR > 60 Random Glucose 142 H (60-115) mg/dL Calcium 9.0 (8.4-10.2) mg/dL Total Bilirubin 0.2 (0.0-1.0) mg/dL Direct Bilirubin < 0.2 (0.0-0.5) mg/dL AST 15 (5-31) U/L ALT 20 (0-31) U/L Alkaline Phosphatase 91 (39-117) U/L Troponin I High Sens 20.0 H (<3.5-17.0) ng/L B-Natriuretic Peptide 76 (<100) pg/mL Total Protein 6.4 L (6.5-8.0) g/dL Albumin 3.9 (3.5-5.0) g/dL Lipase 19 (8-78) U/L Influenza Type A (PCR) NEGATIVE (Negative) Influenza Type B (PCR) NEGATIVE (Negative) RSV RNA Qual (PCR) NEGATIVE (Negative) SARS-CoV-2 RNA (RT-PCR) NEGATIVE (Negative) Independent Interpretation I performed an independent interpretation of an: Plain X-Ray (Chest:Stable mild cardiomegaly with interstitial thickening. No airspace disease.) Radiology Impression Discussion of test interpretation with radiology: I have reviewed the radiologist's reading. Discharge Plan Discharge Clinical Impression: Acute exacerbation of chronic obstructive pulmonary disease Patient Disposition: Home, Self-Care Instructions: Wheezing (ED) Prescriptions: New prednisone 20 mg tablet 20 mg PO BID Qty: 10 0RF No Action (DME) lancets [FreeStyle Lancets] 28 gauge misc See Rx Instructions .ROUTE .MEDSUPPLY Qty: 100 1RF Rx Instructions: Use to check blood sugar daily or if symptomatic hypo/hypergylcemia (DME) 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 meter [FreeStyle Lite Meter] Kit See Rx Instructions .ROUTE .MEDSUPPLY Qty: 1 0RF Rx Instructions: Use to check blood sugar daily or if symptomatic for hypo/hyperglycemia (DME) FreeStyle Lite Strips Strip See Rx Instructions .ROUTE .MEDSUPPLY Qty: 100 1RF Rx Instructions: Use to check blood sugar daily or if symptomatic hypo/hypergylcemia furosemide 20 mg tablet 20 mg PO DAILY Qty: 90 3RF aspirin 81 mg tablet,delayed release (DR/EC) 81 mg PO DAILY 90 Days Qty: 90 1RF theophylline 400 mg tablet extended release 24 hr 400 mg PO BID 90 Days Qty: 180 4RF albuterol sulfate [Ventolin HFA] 90 mcg/actuation HFA aerosol inhaler 2 puff inhalation Q6H PRN (Reason: for wheezing) Qty: 1 6RF glipizide 5 mg tablet 5 mg PO DAILY Qty: 90 1RF (DME) cane Device See Rx Instructions .Route Qty: 1 0RF Rx Instructions: Standard cane (DME) Rollator walker See Rx Instructions .Route .MEDSUPPLY Qty: 1 0RF Rx Instructions: As directed (DME) pulse oximeter See Rx Instructions .Route .MEDSUPPLY Qty: 1 0RF Rx Instructions: As directed fexofenadine [Elisabeth Allergy] 180 mg tablet 180 mg PO DAILY Qty: 30 3RF glucose 4 gram tablet,chewable 16 g PO Q15M MDD 8 tabs PRN (Reason: hypoglycemia) Qty: 100 1RF Rx Instructions: until symptoms of low blood sugar are controlled (DME) FreeStyle Jemima 3 Plus Sensor Device See Rx Instructions .Route Qty: 2 5RF Rx Instructions: To monitor blood sugars 4 times per day. Change sensor every 15 days (DME) FreeStyle Jemima 3 [place] Misc See Rx Instructions .Route Qty: 1 0RF Rx Instructions: To monitor blood sugar 4 times per day ibuprofen 800 mg tablet 800 mg PO BID PRN (Reason: Headache) 30 Days Qty: 60 0RF Rx Instructions: please use sparingly due to diabetes acetaminophen 650 mg tablet extended release 650 mg PO Q12H PRN (Reason: pain) 30 Days Qty: 60 0RF gabapentin 800 mg tablet 800 mg PO QID 30 Days Qty: 120 0RF sertraline 100 mg tablet 150 mg PO DAILY 90 Days Qty: 135 0RF calcium carbonate-vitamin D3 500 mg-10 mcg (400 unit) tablet 1 tab PO DAILY albuterol sulfate 2.5 mg /3 mL (0.083 %) solution for nebulization 2.5 mg inhalation Q4H PRN (Reason: Shortness Of Breath/Wheezing) (DME) mary anne Misc See Rx Instructions .Route Qty: 1 0RF Rx Instructions: As directed losartan 50 mg tablet 50 mg PO DAILY ipratropium-albuterol 0.5 mg-3 mg(2.5 mg base)/3 mL solution for nebulization 3 ml INHALATION TID Stiolto Respimat 2.5-2.5 mcg/actuation mist 2 puff INHALATION DAILY nicotine 21 mg/24 hr patch 24 hour 1 patch transdermal Q24H Qty: 28 0RF tramadol 50 mg tablet 50 mg PO Q6H PRN (Reason: pain) Qty: 20 0RF esomeprazole magnesium 40 mg capsule,delayed release(DR/EC) 40 mg PO DAILY@0630 atorvastatin 40 mg tablet 40 mg PO BEDTIME Qty: 90 0RF tizanidine 4 mg tablet 4 mg PO Q12H Rx Instructions: do not take concurrently with famotidine prednisone 20 mg tablet 40 mg PO DAILY 5 Days Qty: 10 0RF topiramate 25 mg tablet 25 mg PO BID Qty: 14 0RF Print Language: [place] Citizen
--- NOTE | 2024-10-25 07:36 | ECG_ITS ---
Test Reason : SOB Blood Pressure : */* mmHG Vent. Rate : 93 BPM Atrial Rate : 93 BPM P-R Int : 120 ms QRS Dur : 86 ms QT Int : 338 ms P-R-T Axes : * 149 83 degrees QTcB Int : 420 ms Sinus rhythm with Premature atrial complexes with Aberrant conduction Right axis deviation Right ventricular hypertrophy Nonspecific T wave abnormality Abnormal ECG When compared with ECG of 23-Oct-2024 16:30, No significant changes seen Referred By: Destiny De Leon Electronically Signed By: DAVIS WALKER
[2024-10-25] MEDS: Albuterol/Iprat 2.5/0.5MG 3 ML AMPUL.NEB INHALE (07:56)
[2024-10-25] MEDS: Albuterol Sulfate (0.083%) 2.5 MG/3 ML VIAL.NEB 5 MG INHALE (07:59)
[2024-10-25 08:00] VITALS: PULSE 82; RESP 24; O2SAT 91
[2024-10-25 08:09] VITALS: BP 128/78; PULSE 65; PULSE 85; RESP 22; TEMP 36.3; O2SAT 90; O2SAT 94; BMI 34.9
[2024-10-25 08:14] LABS: MANUAL DIFF FLAG NO
[2024-10-25 08:18] LABS: Venous Blood Gas Refer to POC result
[2024-10-25 08:19] LABS: VBG Base Excess 12.7 mmol/L; VBG HCO3 41 mmol/L (22-26); VBG pCO2 70 mmHg; VBG pH 7.37 (7.32-7.43); VBG pO2 48 mmHg
[2024-10-25 08:19] LABS: Basophils Percent Auto 0.2 % (0-2); Eosinophils Absolute Auto 0.2 X10*3/uL (0.0-0.4); Eosinophils Percent Auto 1.2 % (0-4); Hematocrit 38.4 % (37.0-47.0); Hemoglobin 11.3 g/dl (12.0-16.0); Imm Gran Abs Auto 0.16 X10*3/uL (0.00-0.03); Imm Gran Pct Auto 0.9 % (0.0-0.4); Lymphocytes Percent Auto 27.5 % (20-40); Mean Corpuscular HGB Conc 29.4 g/dl (31.0-35.0); Mean Corpuscular Hemoglobin 22.6 pg (27.0-33.0); Mean Platelet Volume 8.9 fL (9.4-12.3); Monocytes Absolute Auto 1.4 X10*3/uL (0.1-1.2); Monocytes Percent Auto 7.9 % (2-11); Neutrophils Absolute Auto 11.3 x10*3/uL (2.0-8.3); Neutrophils Percent Auto 62.3 % (45-73); Platelet Count 425 X10*3/uL (160-400); Red Blood Count 4.99 X10*6/uL (4.20-5.50); Red Cell Distribution Width 18.6 % (11.0-16.0); White Blood Count 18.1 X10*3/uL (4.8-10.8)
[2024-10-25] MEDS: Magnesium Sulfate/H2O 2 GM/50 ML PIGGYBACK IV (08:28)
[2024-10-25] MEDS: methylPREDNISolone Sod Succ 125 MG/2 ML VIAL IVPUSH (08:28)
[2024-10-25 08:35] LABS: Alanine Aminotransferase 20 U/L (0-31); Albumin Level 3.9 g/dL (3.5-5.0); Alkaline Phosphatase 91 U/L (39-117); Anion Gap 14 (12-20); Aspartate Amino Transferase 15 U/L (5-31); Bilirubin Direct < 0.2 mg/dL (0.0-0.5); Bilirubin Total 0.2 mg/dL (0.0-1.0); Blood Urea Nitrogen 24 mg/dL (9-16); Carbon Dioxide 33 mmol/L (22-29); Chloride 97 mmol/L (96-108); Creatinine Clr Calc Pharmacy 66.3; Estimated Glomerular Filt Rate > 60; Glucose Random 142 mg/dL (60-115); Lipase 19 U/L (8-78); Potassium 4.1 mmol/L (3.3-5.1); Sodium 140 mmol/L (135-145); Total Protein 6.4 g/dL (6.5-8.0)
[2024-10-25 08:38] LABS: B Type Natriuretic Peptide 76 pg/mL (<100)
[2024-10-25 08:53] LABS: Influenza A PCR NEGATIVE (Negative); Influenza B PCR NEGATIVE (Negative); Resp Syncy Virus RNA Qual PCR NEGATIVE (Negative); SARS COV2 PCR INHOUSE NEGATIVE (Negative)
[2024-10-25 10:16] VITALS: BP 134/75; PULSE 93; RESP 16; TEMP 37; O2SAT 91
--- NOTE | 2024-10-25 11:40 | PC.NURSE ---
Pt tolerating PO intake; speaking full sentences and states her breathing feels improved; LS dim throughout; 93% 2 ltr nc 02; pt denies pain or cough
[2024-10-25 13:19] VITALS: BP 136/72; PULSE 96; RESP 16; TEMP 36.8; O2SAT 92
[2024-10-25 13:35] VITALS: BP 136/72; PULSE 96; RESP 16; TEMP 36.8; O2SAT 92
== END 2024-10-25 13:36 | disposition home or self-care (01) ==
PROVIDERS: Emergency Provider Emergency Medicine; PCP Nurse Practitioner Family
DX: J44.1 Chronic obstructive pulmonary disease with (acute) exacerbation (principal); R06.02 Shortness of breath; I10 Essential (primary) hypertension; E78.5 Hyperlipidemia, unspecified; E11.9 Type 2 diabetes mellitus without complications
CPT/HCPCS: 0241U; 36415; 71045; 80048; 80076; 82803; 83690; 83880; 84484; 85025; 93005; 94640; 96365; 96366; 96375; 99284; 99285; J2919; J3475

== ENCOUNTER → 2024-10-25 07:36 | Outpatient (BNV) | payer OTHER, SELFPAY | PROVIDERS: Emergency Provider Emergency Medicine; PCP Nurse Practitioner Family; Visit Provider Radiology Diagnostic Radiology | DX: R06.02 Shortness of breath (principal) | CPT/HCPCS: 71045 ==

== ENCOUNTER → 2024-10-25 07:36 | Outpatient (BNV) | payer OTHER, SELFPAY | PROVIDERS: Emergency Provider Emergency Medicine; PCP Nurse Practitioner Family; Visit Provider Internal Medicine | DX: I49.1 Atrial premature depolarization (principal); I42.2 Other hypertrophic cardiomyopathy | CPT/HCPCS: 93010 ==

== ENCOUNTER → 2024-10-26 10:59 | Outpatient (BNVA) | payer OTHER, SELFPAY | PROVIDERS: PCP Nurse Practitioner Family ==

== ENCOUNTER 2024-10-30 01:33 | Inpatient (IN) | payer OTHER, SELFPAY ==
[2024-10-30] VITALS (54 sets, daily range): BP systolic 75–185; BP diastolic 41–137; PULSE 22–145; RESP 14–36; TEMP 32.5–37.4; O2SAT 85–99; BMI 33.0
--- NOTE | ~2024-10-30 | XR_ITS ---
CLINICAL HISTORY: post intubation and OG tube. 1 view chest x-ray Comparison: CR - XR CHEST 1V - 10/30/24 02:06 EDT Findings: Focal left basilar subsegmental atelectasis or infiltrate. Endotracheal tube terminates 5.8 cm above the jg. Mild enlargement of the cardiac silhouette. No acute fracture. Stable mild bilateral reticular opacities Enteric tube with the distal tip in the stomach. IMPRESSION: Endotracheal tube terminates 5.8 cm above the jg. Enteric tube with the distal tip in the stomach Stable mild interstitial prominence Left basilar subsegmental atelectasis or infiltrate This document has been electronically signed by: Patricio Davidson MD, PHD on 10/30/2024 04:52:56
--- NOTE | ~2024-10-30 | XR_ITS ---
CLINICAL HISTORY: sob 1 view chest x-ray Comparison: CR - XR CHEST 1V - 10/25/24 08:46 EDT CR - XR CHEST 1V - 10/23/24 16:37 EDT Findings: Mild basilar subsegmental atelectasis or infiltrates. Stable mild interstitial prominence. Mild enlargement of the cardiac silhouette. No acute fracture. IMPRESSION: Mild basilar subsegmental atelectasis or infiltrates. Stable mild interstitial prominence, interstitial edema or infiltrate versus chronic interstitial lung change This document has been electronically signed by: Patricio Davidson MD, PHD on 10/30/2024 02:38:29
--- NOTE | 2024-10-30 01:36 | ED.SOB ---
HPI - SOB/Dyspnea General Chief Complaint: Dyspnea Stated Complaint: SOB, asthma exacerbation Time Seen by Provider: 10/30/24 01:34 Source: patient Mode of arrival: EMS Limitations: no limitations History of Present Illness ED Provider: HPI Narrative: 54-year-old female with PMH of non insulin-dependent diabetes, HENRY, hypertension, hyperlipidemia, COPD/emphysema use CPAP at home patient is not compliant with the machine patient's is on 2 L oxygen at home with current nicotine use 1 pack per day of cigarettes, cocaine use, obesity, GERD, Bustos's esophagus, in her last admission was diagnosed with CHFrEF and was started on Lasix, presented by EMS for increased shortness a breath since yesterday patient has been using nebulizing treatment multiple times without much relief patient just seen in the ER on 10/25 admitted multiple times patient has used cocaine earlier today patient has received 125 mg Solu-Medrol IM and nebulizing treatment by EMS Related Data Home Medications ?Medication ?Instructions ?Recorded ?Confirmed calcium 500 mg (as 1 tab PO DAILY 06/26/24 10/21/24 carbonate)-vitamin D3 10 mcg (400 unit) tablet albuterol sulfate 2.5 mg/3 mL 2.5 mg inhalation Q4H PRN 07/13/24 10/21/24 (0.083 %) solution for nebulization Shortness Of Breath/Wheezing losartan 50 mg tablet 50 mg PO DAILY 07/17/24 10/21/24 ipratropium 0.5 mg-albuterol 3 mg 3 ml inhalation TID 09/30/24 10/21/24 (2.5 mg base)/3 mL nebulization soln tiotropium 2.5 mcg-olodaterol 2.5 2 puff inhalation DAILY 09/30/24 10/21/24 mcg/actuation mist for inhalation (Stiolto Respimat) esomeprazole magnesium 40 mg 40 mg PO DAILY@0630 10/17/24 10/21/24 capsule,delayed release tizanidine 4 mg tablet 4 mg PO Q12H muscle spasm 10/21/24 10/21/24 Previous Rx's ?Medication ?Instructions ?Recorded lancets 28 gauge (FreeStyle #100 ea 01/20/21 Lancets) 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 meter (FreeStyle #1 ea 03/01/22 Lite Meter kit) blood sugar diagnostic (FreeStyle #100 ea 09/16/22 Lite Strips) furosemide 20 mg tablet 20 mg PO DAILY #90 tabs 12/09/23 aspirin 81 mg tablet,delayed 81 mg PO DAILY 90 days #90 tabs 01/01/24 release theophylline 400 mg 400 mg PO BID 90 days #180 tabs 01/27/24 tablet,extended release 24 hr albuterol sulfate 90 mcg/actuation 2 puff inhalation Q6H PRN for 04/10/24 aerosol inhaler (Ventolin HFA) wheezing #1 ea walker #1 ea 07/14/24 glipizide 5 mg tablet 5 mg PO DAILY #90 tabs 08/05/24 Rollator walker #1 ea 09/16/24 cane #1 ea 09/16/24 pulse oximeter #1 ea 09/16/24 fexofenadine 180 mg tablet 180 mg PO DAILY #30 tabs 09/17/24 (Elisabeth Allergy) FreeStyle Jemima 3 Plus Sensor #2 ea 09/22/24 (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 sensor) FreeStyle Jemima 3 Hobson #1 ea 09/22/24 (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,liner checker,cont) glucose 4 gram chewable tablet 16 g (4 x 4 gram) PO Q15M PRN 09/22/24 hypoglycemia #100 tabs nicotine 21 mg/24 hr daily 1 patch transdermal Q24H #28 ea 10/01/24 transdermal patch acetaminophen 650 mg 650 mg PO Q12H PRN pain 30 days 10/05/24 tablet,extended release #60 tabs gabapentin 800 mg tablet 800 mg PO QID Pain 30 days #120 10/05/24 tabs ibuprofen 800 mg tablet 800 mg PO BID PRN Headache 30 days 10/05/24 #60 tabs tramadol 50 mg tablet 50 mg PO Q6H PRN pain #20 tabs 10/12/24 sertraline 100 mg tablet 150 mg (1.5 x 100 mg) PO DAILY 90 10/13/24 days #135 tabs atorvastatin 40 mg tablet 40 mg PO BEDTIME #90 tabs 10/18/24 prednisone 20 mg tablet 40 mg (2 x 20 mg) PO DAILY 5 days 10/22/24 #10 tabs topiramate 25 mg tablet 25 mg PO BID #14 tabs 10/22/24 prednisone 20 mg tablet 20 mg PO BID #10 tabs 10/25/24 Allergies Allergy/AdvReac Type Severity Reaction Status Date / Time doxycycline Allergy Severe Swelling Verified 10/30/24 01:41 varenicline [From CHANTIX] Allergy Severe ANAPHYLAXIS Verified 10/30/24 01:41 azithromycin Allergy Intermediate Rash Verified 10/30/24 01:41 barium sulfate Allergy Intermediate angioedema Verified 10/30/24 01:41 cetirizine Allergy Mild Rash Verified 10/30/24 01:41 famotidine Allergy Mild Rash Verified 10/30/24 01:41 linaclotide [Linzess] Allergy Mild Rash Verified 10/30/24 01:41 Review of Systems Review of Systems: Yes all other systems are reviewed and are negative [facility] Past Medical History Medical History Cocaine use disorder Cocaine abuse GERD (gastroesophageal reflux disease) Constipation Non-insulin dependent type 2 diabetes mellitus HENRY (obstructive sleep apnea) Acute exacerbation of chronic obstructive airways disease Asthma with exacerbation Obesity hypoventilation syndrome COPD (chronic obstructive pulmonary disease) Chronic lung disease Hypoxic respiratory failure Nocturnal hypoxemia Diabetes mellitus COPD exacerbation Crack cocaine use Hyperkalemia Metabolic acidosis Leukocytosis Chest discomfort Chronic renal failure, stage 2 (mild) SOB (shortness of breath) Asthma Smoker Rotator cuff tendonitis GERD (gastroesophageal reflux disease) Chronic idiopathic constipation Bustos's esophagus Depression High triglycerides Gastroparesis Carpal tunnel syndrome of right wrist Nausea & vomiting Hernia Acute and chronic respiratory failure, unspecified whether with hypoxia or hypercapnia HTN (hypertension) Obesity (BMI 30-39.9) Knee pain, bilateral Surgical History History of cholecystectomy (~1988) History of carpal tunnel release Hx of tubal ligation History of pubovaginal sling (~2015) History of umbilical hernia repair (~2001) Hx of section History of open reduction and internal fixation (ORIF) procedure History of esophagogastroduodenoscopy (EGD) Family History Family History Father Heart disease HENRY (obstructive sleep apnea) Family history of breast cancer Mother Asthma Emphysema, unspecified Bronchitis Smoker Alcoholism Bone marrow disease Maternal Grandmother Diabetes Social History Social History Household Members: Other Household Members Other:: sister Housing: House Are you a primary career and guidance counselor to a significant other at home: No Do you presently have visiting nurse or other home services: Yes Unable to assess alcohol history related to: Unknown Alcohol intake: unknown Comment: Sleeping Patient Tobacco Use Status: Current everyday Tobacco user Tobacco use type: Cigarette Cigarette Packs Per Day: 0.5 Cigarettes Per Day: 10.0 Years Smoked: 40? Smoked in Last 30 Days: Yes e-Cigarette/Vaping Use: Never Used Second Hand Smoke Exposure: No Use of substances other than those prescribed or required for medical reasons: Yes Substance Use Type: Crack/Cocaine Advance Directives: Yes Advance Directives on File: Yes Advance Directives Date on File: 12/19/23 Do you have a plan to hurt others: No Plan Patient : No service: No Current occupational status: disabled 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 Physical Exam Vital Signs: Vital Signs: Last Vital Signs Temp 97.9 F 10/30/24 06:54 Pulse 101 H 10/30/24 06:54 Resp 22 H 10/30/24 06:54 BP 96/60 10/30/24 06:54 Pulse Ox 88 L 10/30/24 06:54 O2 Del Method Mechanical Ventil ation 10/30/24 06:54 O2 Flow Rate 4 10/30/24 03:18 FiO2 60 10/30/24 06:54 BMI result Body Mass Index 33.0 Appearance: Alert. Oriented X3. Severe respiratory distress on CPAP Eyes: PERRLA, No Nystagmus ENT: Pharynx normal. Oral Mucosa moist Neck: Normal inspection. Neck supple. CVS: Normal heart rate and rhythm. Pulses normal. Respiratory: Moderate respiratory distress. Equal air entry bilateral, bilateral wheezing Abdomen: Soft and nontender. Bowel sounds are present, no mass palpable, no CVA tenderness Skin: Skin warm and dry. Normal skin color. Normal skin turgor. Extremities: No lower extremity edema. No calf tenderness Neuro: Oriented X 3. No motor deficit. No sensory deficit.No cerebellar signs , cranial nerves II-XII intact Medications Administered Generic Name Dose Route Start Last Admin Trade Name Freq PRN Reason Stop Dose Admin Propofol 1,000 mg in 100 mls @ 0 mls/hr 10/30/24 04:15 10/30/24 06:02 Diprivan IVCONT 0 mcg/kg/min .Q0M [place] 0 mls/hr Titration Protocol Per Protocol Fentanyl 1,000 mcg in 100 mls @ 0 mls/hr 10/30/24 06:00 10/30/24 06:07 Sublimaze/Ns IVCONT 50 mcg/hr .Q0M [place] 5 mls/hr Administration Protocol Per Protocol Discontinued Medications Generic Name Dose Route Start Last Admin Trade Name Freq PRN Reason Stop Dose Admin Ceftriaxone Sodium 1 gm 10/30/24 02:12 10/30/24 02:40 Ceftriaxone Sodium 1 Gm Vial IVPUSH 10/30/24 02:13 1 gm ONCE ONE Administration Albuterol Sulfate 5 mg/ 0 mg 10/30/24 02:05 10/30/24 02:10 Albuterol/Ipratropium 3 ml INHALE 10/30/24 02:06 7.5 each ONCE ONE Administration Etomidate 20 mg 10/30/24 04:15 10/30/24 04:20 Etomidate 20 Mg/10 Ml Vial IVPUSH 10/30/24 04:16 20 mg ONCE ONE Administration Fentanyl 50 mcg 10/30/24 05:45 10/30/24 05:49 Fentanyl Citrate/Pf 100 Mcg/2 Ml Vial IVPUSH 10/30/24 05:46 50 mcg ONCE ONE Administration Protocol Sodium Chloride 1,000 mls @ 999 mls/hr 10/30/24 01:42 10/30/24 02:24 Ns IV 10/30/24 02:42 Infused .Q1H1M ONE Infusion Magnesium Sulfate 2 gm in 50 mls @ 150 mls/hr 10/30/24 03:26 10/30/24 03:50 Magnesium Sulfate/H2o IV 10/30/24 03:45 Infused ONCE ONE Infusion Piperacillin Sod/Tazobactam 50 mls @ 100 mls/hr 10/30/24 04:14 10/30/24 05:21 Sod 3.375 gm/ Sodium Chloride IV 10/30/24 04:43 Infused ONCE ONE Infusion Sodium Chloride 1,000 mls @ 999 mls/hr 10/30/24 06:02 10/30/24 06:07 Ns IV 10/30/24 07:02 999 mls/hr .Q1H1M ONE Administration Midazolam HCl 1 mg 10/30/24 03:26 10/30/24 03:30 Midazolam Hcl 2 Mg/2 Ml Vial IVPUSH 10/30/24 03:27 1 mg ONCE ONE Administration Midazolam HCl 2 mg 10/30/24 03:52 10/30/24 04:02 Midazolam Hcl 2 Mg/2 Ml Vial IVPUSH 10/30/24 03:53 2 mg ONCE ONE Administration Midazolam HCl 5 mg 10/30/24 06:04 10/30/24 06:08 Midazolam Hcl 5 Mg/Ml Vial IVPUSH 10/30/24 06:05 5 mg ONCE ONE Administration Morphine Sulfate 4 mg 10/30/24 01:52 10/30/24 02:00 Morphine Sulfate 4 Mg/Ml Cartridge IVPUSH 10/30/24 01:53 4 mg ONCE ONE Administration Protocol Ondansetron HCl 4 mg 10/30/24 01:54 10/30/24 02:01 Ondansetron Hcl 4 Mg/2 Ml Vial IVPUSH 10/30/24 01:55 4 mg ONCE ONE Administration Rocuronium Julian 50 mg 10/30/24 04:14 10/30/24 04:21 Rocuronium Julian 50 Mg/5 Ml Vial IVPUSH 10/30/24 04:15 50 mg ONCE ONE Administration Medical Decision Making Medical Decision Making [facility] Narrative: Patient's COPD/asthma cocaine in nicotine use comes here for severe shortness a breath acute on chronic hypoxic respiratory failure BiPAP was placed still using accessory respiratory muscle and short of breath dropping to 86% on 4 L venous gases showed pH of 7.48 pCO2 38 PO2 57 will continue BiPAP for now no ICU bed available at this time will re-evaluate patient for ICU admission 410am patient has received Versed , still very agitated unable to tolerate BiPAP desaturating plan for intubation 420 am : Patient is intubated 7.5 mm 25 cm at the lip 04:[address] Boucher according to nursing utilities and maintenance supervisor they will be bed available at 07:[address] Boucher he will not manage the patient till patient is in ED , but will consult 07:00 patient with stable vitals had transient hypotension IV fluids were given and propofol drip stopped started on fentanyl drip and Versed was given Differential Diagnosis Differential Diagnoses: The differential diagnosis associated with the presentation includes Acute respiratory failure/pneumonia/dual effusion Admission/Observation Consideration of admission/observation: Escalation of care including admission/observation considered Lab Data [facility] Lab Attestation statement: I reviewed the patient's lab results. 10/30/24 01:52 10/30/24 01:52 Labs: Lab Results 10/30/24 10/30/24 10/30/24 Range/Units 01:52 04:59 05:05 WBC 30.1 H* (4.8-10.8) X10*3/uL RBC 5.35 (4.20-5.50) X10*6/uL Hgb 12.2 (12.0-16.0) g/dl Hct 40.2 (37.0-47.0) % MCV 75.1 L (80.0-98.0) fL MCH 22.8 L (27.0-33.0) pg MCHC 30.3 L (31.0-35.0) g/dl RDW 18.9 H (11.0-16.0) % Plt Count 514 H (160-400) X10*3/uL MPV 9.0 L (9.4-12.3) fL Immature Gran % (Auto) 0.5 H (0.0-0.4) % Neut % (Auto) 78.9 H (45-73) % Lymph % (Auto) 12.6 L (20-40) % Denali % (Auto) 7.6 (2-11) % Eos % (Auto) 0.2 (0-4) % Baso % (Auto) 0.2 (0-2) % Lymph # (Auto) 3.8 (1.2-4.9) X10*3/uL Denali # (Auto) 2.3 H (0.1-1.2) X10*3/uL Eos # (Auto) 0.1 (0.0-0.4) X10*3/uL Baso # (Auto) 0.1 (0.0-0.2) X10*3/uL Abs Immat Gran (auto) 0.16 H (0.00-0.03) X10*3/uL Absolute Neuts (auto) 23.8 H (2.0-8.3) x10*3/uL Absolute Nucleated RBC 0.000 (0.0-0.012) X10*3/uL Nucleated RBC % (auto) 0.0 (0.0-0.2) /100WBC Smear Tech's Comments VERIFIED O2 Saturation % ABG pH at Pt Temp (7.35-7.45) ABG pCO2 at Pt Temp (32-45) mmHg ABG pO2 at Pt Temp (83-108) mmHg ABG HCO3 (22-26) mmol/L ABG Base Excess (Actual) mmol/L VBG pH 7.48 H 7.31 L (7.32-7.43) VBG pCO2 38 57 mmHg VBG pO2 57 67 mmHg VBG HCO3 28 H 29 H (22-26) mmol/L VBG O2 Saturation 88.0 89.0 % VBG Base Excess 5.1 2.0 mmol/L Sodium 134 L (135-145) mmol/L Potassium 4.6 (3.3-5.1) mmol/L Chloride 96 (96-108) mmol/L Carbon Dioxide 22 (22-29) mmol/L Anion Gap 21 H (12-20) BUN 22 H (9-16) mg/dL Creatinine 0.98 (0.5-1.4) mg/dL Estim Creat Clear Calc 58.6 Estimated GFR 59 Random Glucose 123 H (60-115) mg/dL Lactic Acid 2.5 H* (0.5-2.0) mmol/L Lactic Acid F/U @ 2Hr 1.3 (0.5-2.0) mmol/L Calcium 9.1 (8.4-10.2) mg/dL Magnesium 1.7 (1.6-2.6) mg/dL Total Bilirubin 0.5 (0.0-1.0) mg/dL AST 36 H (5-31) U/L ALT 16 (0-31) U/L Alkaline Phosphatase 80 (39-117) U/L Troponin I High Sens 27.4 H (<3.5-17.0) ng/L B-Natriuretic Peptide 58 (<100) pg/mL Total Protein 7.2 (6.5-8.0) g/dL Albumin 3.9 (3.5-5.0) g/dL 10/30/24 Range/Units 06:06 WBC (4.8-10.8) X10*3/uL RBC (4.20-5.50) X10*6/uL Hgb (12.0-16.0) g/dl Hct (37.0-47.0) % MCV (80.0-98.0) fL MCH (27.0-33.0) pg MCHC (31.0-35.0) g/dl RDW (11.0-16.0) % Plt Count (160-400) X10*3/uL MPV (9.4-12.3) fL Immature Gran % (Auto) (0.0-0.4) % Neut % (Auto) (45-73) % Lymph % (Auto) (20-40) % Denali % (Auto) (2-11) % Eos % (Auto) (0-4) % Baso % (Auto) (0-2) % Lymph # (Auto) (1.2-4.9) X10*3/uL [place] # (Auto) (0.1-1.2) X10*3/uL Eos # (Auto) (0.0-0.4) X10*3/uL Baso # (Auto) (0.0-0.2) X10*3/uL Abs Immat Gran (auto) (0.00-0.03) X10*3/uL Absolute Neuts (auto) (2.0-8.3) x10*3/uL Absolute Nucleated RBC (0.0-0.012) X10*3/uL Nucleated RBC % (auto) (0.0-0.2) /100WBC Smear Tech's Comments O2 Saturation 90.0 % ABG pH at Pt Temp 7.38 (7.35-7.45) ABG pCO2 at Pt Temp 48 H (32-45) mmHg ABG pO2 at Pt Temp 67 L (83-108) mmHg ABG HCO3 29 H (22-26) mmol/L ABG Base Excess (Actual) 3.2 mmol/L VBG pH (7.32-7.43) VBG pCO2 mmHg VBG pO2 mmHg VBG HCO3 (22-26) mmol/L VBG O2 Saturation % VBG Base Excess mmol/L Sodium (135-145) mmol/L Potassium (3.3-5.1) mmol/L Chloride (96-108) mmol/L Carbon Dioxide (22-29) mmol/L Anion Gap (12-20) BUN (9-16) mg/dL Creatinine (0.5-1.4) mg/dL Estim Creat Clear Calc Estimated GFR Random Glucose (60-115) mg/dL Lactic Acid (0.5-2.0) mmol/L Lactic Acid F/U @ 2Hr (0.5-2.0) mmol/L Calcium (8.4-10.2) mg/dL Magnesium (1.6-2.6) mg/dL Total Bilirubin (0.0-1.0) mg/dL AST (5-31) U/L ALT (0-31) U/L Alkaline Phosphatase (39-117) U/L Troponin I High Sens (<3.5-17.0) ng/L B-Natriuretic Peptide (<100) pg/mL Total Protein (6.5-8.0) g/dL Albumin (3.5-5.0) g/dL Independent Interpretation I performed an independent interpretation of an: EKG Interpretation: Sinus tachycardia with heart rate 144 beats per minute with PACs no acute STT wave changes no acute ischemia Radiology Impression Discussion of test interpretation with radiology: I have reviewed the radiologist's reading. Procedures Intubation Intubation Type:: Endotracheal Tube Insertion Intubation Date:: 10/30/24 Intubation Time:: 04:20 Time out performed: Yes sedative: Etomidate Mg Given: 20 paralytic: Rocuronium Mg Given: 50 Laryngoscope: fiber optic video scope ET Tube Size: 7.5 ET Tube Uncuffed: Yes Tube Secured Depth (cm): 25 Tube Secured Location: lips Tube Placement Confirmation: visualized tube passing through cords Patient Tolerated Procedure: well and no complications Intubation Complications: none Critical Care Time Critical Care Time Critical Care Time: Yes Total Critical Care Time: 90 Attestation: The patient was critically ill with a high probability of imminent or life threatening deterioration. I spent greater than ?100??minutes of discontinuous time evaluating the patient,delivering critical care at the bedside, discussing and evaluating pertinent data with consultants. Critical care time does not include time spent performing separately billable procedures or teaching. Total time spent performing critical care was ?90??minutes. Discharge Plan Discharge Clinical Impression: Acute hypoxemic respiratory failure, Acute exacerbation of chronic obstructive pulmonary disease Patient Disposition: Admitted As Inpatient Print Language: Guyanese
--- NOTE | 2024-10-30 01:43 | ECG_ITS ---
Test Reason : SOB Blood Pressure : */* mmHG Vent. Rate : 144 BPM Atrial Rate : 159 BPM P-R Int : 112 ms QRS Dur : 88 ms QT Int : 300 ms P-R-T Axes : 54 142 50 degrees QTcB Int : 464 ms Sinus tachycardia with PACs Right ventricular hypertrophy Abnormal ECG When compared with ECG of 25-Oct-2024 07:37, Aberrant conduction is no longer Present Vent. rate has increased by 51 bpm Nonspecific T wave abnormality has replaced inverted T waves in Anterior leads Referred By: Ok Griffith Electronically Signed By: Dallin Birmingahm
[2024-10-30 01:54] LABS: Venous Blood Gas Refer to POC result
[2024-10-30] MEDS: 0.9 % Sodium Chloride 1,000 ML 999 ML IV ×2 (02:00→06:07)
[2024-10-30] MEDS: Morphine Sulfate 4 MG/ML CARTRIDGE IVPUSH (02:00)
[2024-10-30] MEDS: ondansetron HCL 4 MG/2 ML VIAL IVPUSH (02:01)
[2024-10-30 02:04] LABS: Basophils Absolute Auto 0.1 X10*3/uL (0.0-0.2); Basophils Percent Auto 0.2 % (0-2); Eosinophils Absolute Auto 0.1 X10*3/uL (0.0-0.4); Eosinophils Percent Auto 0.2 % (0-4); Hematocrit 40.2 % (37.0-47.0); Hemoglobin 12.2 g/dl (12.0-16.0); Imm Gran Abs Auto 0.16 X10*3/uL (0.00-0.03); Imm Gran Pct Auto 0.5 % (0.0-0.4); Lymphocytes Absolute Auto 3.8 X10*3/uL (1.2-4.9); Lymphocytes Percent Auto 12.6 % (20-40); MANUAL DIFF FLAG SCAN; Mean Corpuscular HGB Conc 30.3 g/dl (31.0-35.0); Mean Corpuscular Hemoglobin 22.8 pg (27.0-33.0); Mean Corpuscular Volume 75.1 fL (80.0-98.0); Monocytes Absolute Auto 2.3 X10*3/uL (0.1-1.2); Monocytes Percent Auto 7.6 % (2-11); Neutrophils Absolute Auto 23.8 x10*3/uL (2.0-8.3); Neutrophils Percent Auto 78.9 % (45-73); Platelet Count 514 X10*3/uL (160-400); Red Blood Count 5.35 X10*6/uL (4.20-5.50); Red Cell Distribution Width 18.9 % (11.0-16.0); SCAN SMEAR FLAG 1
[2024-10-30] MEDS: Albuterol Sulfate 5 MG, Albuterol/Iprat 2.5/0.5MG 3 ML 3 ML INHALE (02:10)
--- NOTE | 2024-10-30 02:11 | PC.NURSE ---
pt biba from home, a&ox4, respirations even but labored. pt on cpap on arrival, working to breath, pt o2 sat 96%. pt reports all day she has had shortness of breath and has attempted to use nebs at home with no relief. 20G placed in right ac and 20G placed in back of left forearm, labs obtained. pt sinus tachy on tele 130/140bpm. and rt at bedside, pt continues on cpap.
[2024-10-30 02:12] LABS: White Blood Count 30.1 X10*3/uL (4.8-10.8)
[2024-10-30 02:24] LABS: Troponin-I High Sensitivity 27.4 ng/L (<3.5-17.0)
--- NOTE | 2024-10-30 02:24 | PC.NURSE ---
purewick placed per pt request at this time. pt remains on cpap, ice chips given per provider.
[2024-10-30 02:31] LABS: VBG Base Excess 5.1 mmol/L; VBG HCO3 28 mmol/L (22-26); VBG pCO2 38 mmHg; VBG pH 7.48 (7.32-7.43); VBG pO2 57 mmHg
[2024-10-30 02:32] LABS: Alanine Aminotransferase 16 U/L (0-31); Albumin Level 3.9 g/dL (3.5-5.0); Alkaline Phosphatase 80 U/L (39-117); Anion Gap 21 (12-20); Aspartate Amino Transferase 36 U/L (5-31); Bilirubin Total 0.5 mg/dL (0.0-1.0); Blood Urea Nitrogen 22 mg/dL (9-16); Calcium 9.1 mg/dL (8.4-10.2); Carbon Dioxide 22 mmol/L (22-29); Chloride 96 mmol/L (96-108); Creatinine Clr Calc Pharmacy 58.6; Estimated Glomerular Filt Rate 59; Glucose Random 123 mg/dL (60-115); Magnesium 1.7 mg/dL (1.6-2.6); Potassium 4.6 mmol/L (3.3-5.1); Sodium 134 mmol/L (135-145); Total Protein 7.2 g/dL (6.5-8.0)
--- NOTE | 2024-10-30 02:33 | PC.NURSE ---
critical lactic 2.5. sepsis alert called at this time per dr. moore
[2024-10-30 02:34] LABS: Lactic Acid 2.5 mmol/L (0.5-2.0)
[2024-10-30] MEDS: cefTRIAXone sodium 1 GM VIAL IVPUSH (02:40)
[2024-10-30 02:43] LABS: SLIDE REVIEW VERIFIED
--- NOTE | 2024-10-30 03:18 | PC.NURSE ---
pt trialed off cpap at this time, pt unable to tolerated 4l nc. pt now placed on bipap.
[2024-10-30 03:22] LABS: B Type Natriuretic Peptide 58 pg/mL (<100)
[2024-10-30] MEDS: Magnesium Sulfate/H2O 2 GM/50 ML PIGGYBACK IV (03:30)
[2024-10-30] MEDS: Midazolam HCl 2 MG/2 ML VIAL 1 MG IVPUSH (03:30)
--- NOTE | 2024-10-30 03:33 | PC.NURSE ---
pt noted to be increasingly anxious, pt medicated per mar.
[2024-10-30 03:59] LABS: Reflex Lactate? Lactic Acid Added
[2024-10-30] MEDS: Midazolam HCl 2 MG/2 ML VIAL IVPUSH ×2 (04:02→11:33)
--- NOTE | 2024-10-30 04:17 | MHC.EDTECH ---
unable to draw lactic- per dr Peña too much going on
[2024-10-30] MEDS: Etomidate 20 MG/10 ML VIAL IVPUSH (04:20)
--- NOTE | 2024-10-30 04:20 | PC.NURSE ---
0420- pt condition worsening, rt and at bedside plan for intubation. etomidate pushed 0421- avi pushed 0422- intubated by , 7.5 tube, 26cm at lip. + color change/ positive breath sounds. 0423- 14F OG tube placed 0428- 16F temp sensing ortiz placed
[2024-10-30] MEDS: Rocuronium Bromide 50 MG/5 ML VIAL IVPUSH (04:21)
[2024-10-30] MEDS: Piperacillin Sodium/Tazobactam 3.375 GM in 0.9 % Sodium Chloride 50 ML IV (04:50)
[2024-10-30 05:11] LABS: VBG HCO3 29 mmol/L (22-26); VBG pCO2 57 mmHg; VBG pH 7.31 (7.32-7.43); VBG pO2 67 mmHg
[2024-10-30 05:12] LABS: Venous Blood Gas Refer to POC result
[2024-10-30] MEDS: propofoL 1,000 MG/100 ML VIAL 13.79 MG IVCONT (05:13)
[2024-10-30 05:17] LABS: ~Lactic Acid-LAB USE ONLY 1.3 mmol/L (0.5-2.0)
--- NOTE | 2024-10-30 05:28 | PM.EVENT ---
Documented by User: Cory Irvin NP 10/30/24 05:29 Event Note Date of Service: 10/30/24 Event Note: 54-year-old female With a past medical history of severe asthma/COPD overlap syndrome (2-3 L02 at baseline) recurrently exacerbated by cocaine use, severe obstructive sleep apnea with obesity hypoventilation controlled on nocturnal BiPAP,? congestive heart failure (LVEF 40-45%), hypertension, hyperlipidemia, GERD and Bustos?s esophagus who presented to the emergency department? via EMS with dyspnea.?? ?Patient had recent admission 10/21/24 to 10/23/24? for COPD exacerbation and? Congestive heart failure exacerbation with new echo showing LVEF of 40-45% she was started on Lasix. According to EMS patient has had increased shortness of breath since yesterday, ? been using nebulizing treatment multiple times without much relief. The patient also admitted using cocaine earlier today. ? On arrival to emergency department patient?s severe respiratory distress requiring BiPAP? support initially,? but? later patient was agitated? hypoxic unable to keep BiPAP? requiring emergent intubation.? ?Acute decompensation is related to acute respiratory failure secondary to? cocaine abuse requiring ventilatory support ?Unfortunately there is no ICU bed at this time, recommend:? Vent settings: change to higher RR, to 22 , Repeat VBG after 1 hour of changes? ?Diuresing with Lasix ?continue Keep 02 sat 88-92% Continue antibiotics Tox screen? Vent bundle:? head of the bed 30 degrees,? chlorhexidine TID, ppi prophylaxis, DVT prophylaxis Time Spent With Patient Time: Total time managing care of this patient today ____ minutes. Documented by User: Kolby Kessler MD 10/30/24 11:57 Event Note Date of Service: 10/30/24
--- NOTE | 2024-10-30 05:38 | PC.NURSE ---
pt o2 88-90%, per provider, okay due to pt having copd. plan to maintain 88%.
[2024-10-30] MEDS: fentaNYL citrate/PF 100 MCG/2 ML VIAL 50 MCG IVPUSH (05:49)
[2024-10-30] MEDS: fentaNYL citrate/NS 1,000 MCG/100 ML PLAST..BAG 5 MCG IVCONT (06:07)
[2024-10-30] MEDS: Midazolam HCl 5 MG/ML VIAL IVPUSH (06:08)
--- NOTE | 2024-10-30 06:09 | PC.NURSE ---
Addendum entered by Juani Stewart 10/30/24 06:42: soft restraints placed d/t decreased sedation at that time, pt eyes awake and attempting to grab at tubing. order in place Original Note: pt propofol stopped d.t pressure, fentayl drip started. iv fluids started and soft restraints placed.
[2024-10-30 06:10] LABS: ABG Base Excess 3.2 mmol/L; ABG HCO3 29 mmol/L (22-26); ABG pCO2 48 mmHg (32-45); ABG pH 7.38 (7.35-7.45); ABG pO2 67 mmHg (83-108)
[2024-10-30] MEDS: fentaNYL citrate/PF 100 MCG/2 ML VIAL IVPUSH (07:24)
[2024-10-30] MEDS: levalbuterol HCL 1.25 MG/3 ML VIAL.NEB 3.75 MG INHALE (07:33)
[2024-10-30 09:03] LABS: Amphetamine Screen Urine Not Detected (Not Detect); Barbiturates, Urine Not Detected (Not Detect); Benzodiazepines Screen Urine POSITIVE (Not Detect); Buprenorphine Scr Not Detected (Not Detect); Cannabinoid Screen Urine Not Detected (Not Detect); Cocaine Screen Urine POSITIVE (Not Detect); Fentanyl, urine Not Detected (Not Detect); Methadone Screen, Urine Not Detected (Not Detect); Opiate Screen Urine POSITIVE (Not Detect); Oxycodone Screen Urine Not Detected (Not Detect); Phencyclidine Screen Urine Not Detected (Not Detect)
--- NOTE | 2024-10-30 09:07 | PC.NURSE ---
Report given to Krystyna FLORES in ICU.
[2024-10-30] MEDS: Norepinephrine Bitartrate/D5W 8 MG/250 ML PLAST..BAG 7.18 MG IVCONT (10:22)
[2024-10-30] MEDS: Chlorhexidine Gluc Oral Rinse 15 ML MOUTHWASH BUCCAL (10:26)
[2024-10-30] MEDS: Heparin Sodium,Porcine 5,000 UNIT/ML VIAL 5000 UNIT SUBCUT ×2 (10:26→16:10)
[2024-10-30] MEDS: dexmedeTOMIDine HCL/NS 400 MCG/100 ML PLAST..BAG 19.15 MCG IVCONT (11:45)
--- NOTE | 2024-10-30 11:57 | P.HPCC_ITS ---
History of Present Illness Date of Service: 10/30/24 Chief Complaint: Dyspnea 54-year-old lady with underlying severe asthma/COPD overlap syndrome on 2-3 L of supplemental O2 at baseline, cocaine abuse, HENRY with obesity hypoventilation with suboptimal compliance with nocturnal BiPAP, systolic congestive heart failure, hypertension admitted on 10/30/2024 with complaints of worsening dyspnea intubated in the emergency room and extubated after arrival to the intensive care unit. Review of Systems 2 Constitutional: Constitutional: Denies daytime sleepiness, Denies excessive sweating, Denies fatigue, Denies fever(s), Denies lethargy, Denies malaise, Denies night sweats, Denies snoring and Denies weight loss Eyes: Eyes: Denies blurry vision and Denies itchy eyes ENT: Denies nasal congestion, Denies post nasal drip, Denies sinus pain, Denies sinus pressure and Denies other ( Thrush) Cardiovascular: Cardiovascular: Denies chest pain, Denies pedal edema, Denies dyspnea, Reports dyspnea on exertion, Denies orthopnea and Denies paroxysmal nocturnal dyspnea Respiratory: Respiratory: Denies cough, Denies hemoptysis, Denies excessive phlegm production, Denies dyspnea, Reports dyspnea on exertion, Denies snoring and Denies wheezing Gastrointestinal: Gastrointestinal: Denies abdominal pain and Denies heartburn Musculoskeletal: Musculoskeletal: Denies myalgias, Denies arthralgias and Denies joint swelling Integumentary/Breasts: Skin/Breast: Denies rash Neurologic: Denies memory loss and Denies seizure-like activity Psychiatric: Psychiatric: Denies abnormal sleep pattern, Denies anxiety and Denies memory loss Endocrine: Endocrine: Denies excessive sweating, Denies fatigue and Denies heat intolerance Hematologic/Lymphatic: Hematologic/Lymphatic: Denies easy bruising Allergic/Immunologic: Allergic/Immunologic: Denies itchy eyes, Denies seasonal rhinorrhea and Denies wheezing PMFSH Past Medical History Medical History Cocaine use disorder Cocaine abuse GERD (gastroesophageal reflux disease) Constipation Non-insulin dependent type 2 diabetes mellitus HENRY (obstructive sleep apnea) Acute exacerbation of chronic obstructive airways disease Asthma with exacerbation Obesity hypoventilation syndrome COPD (chronic obstructive pulmonary disease) Chronic lung disease Hypoxic respiratory failure Nocturnal hypoxemia Diabetes mellitus COPD exacerbation Crack cocaine use Hyperkalemia Metabolic acidosis Leukocytosis Chest discomfort Chronic renal failure, stage 2 (mild) SOB (shortness of breath) Asthma Smoker Rotator cuff tendonitis GERD (gastroesophageal reflux disease) Chronic idiopathic constipation Bustos's esophagus Depression High triglycerides Gastroparesis Carpal tunnel syndrome of right wrist Nausea & vomiting Hernia Acute and chronic respiratory failure, unspecified whether with hypoxia or hypercapnia HTN (hypertension) Obesity (BMI 30-39.9) Knee pain, bilateral Family History Family History Father Heart disease HENRY (obstructive sleep apnea) Family history of breast cancer Mother Asthma Emphysema, unspecified Bronchitis Smoker Alcoholism Bone marrow disease Maternal Grandmother Diabetes Surgical History Surgical History History of cholecystectomy (~1988) History of carpal tunnel release Hx of tubal ligation History of pubovaginal sling (~2015) History of umbilical hernia repair (~2001) Hx of section History of open reduction and internal fixation (ORIF) procedure History of esophagogastroduodenoscopy (EGD) Social History Social History Household Members: Unknown / Unable to assess Household Members Other:: sister Housing: Unknown / Unable to assess Are you a primary early breastfeeding care specialist to a significant other at home: No Unable to assess alcohol history related to: Unknown Alcohol intake: unknown Comment: Sleeping Patient Tobacco Use Status: Current everyday Tobacco user Tobacco use type: Cigarette Cigarette Packs Per Day: 0.5 Cigarettes Per Day: 10.0 Years Smoked: 40? Smoked in Last 30 Days: Yes e-Cigarette/Vaping Use: Never Used Patient Interested in Nicotine Replacement: Yes Patient Given Instructions on How to Stop Smoking: No (sedated and vented) Use of substances other than those prescribed or required for medical reasons: Yes Substance Use Type: Crack/Cocaine and Opiates Substance Use Frequency: Chronic Longstanding Last Used Substance: Just Prior to Admission Currently Displaying Signs/Symptoms of Drug Intoxication Withdrawal: No Spiritual Healthcare Practices: unable to respond Quaker Healthcare Practices: unable to respond Cultural Healthcare Practices: unable to respond Advance Directives: Yes Advance Directives Information Provided: No (unable to respond) Advance Directives on File: Yes Advance Directives Date on File: 12/19/23 Do you have a plan to hurt others: Vague Recently lost weight without trying: Unsure Patient : No : No Poor oral hygiene: No service: No Current occupational status: disabled 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 Meds Allergies Allergy/AdvReac Type Severity Reaction Status Date / Time doxycycline Allergy Severe Swelling Verified 10/30/24 01:41 varenicline [From CHANTIX] Allergy Severe ANAPHYLAXIS Verified 10/30/24 01:41 azithromycin Allergy Intermediate Rash Verified 10/30/24 01:41 barium sulfate Allergy Intermediate angioedema Verified 10/30/24 01:41 cetirizine Allergy Mild Rash Verified 10/30/24 01:41 famotidine Allergy Mild Rash Verified 10/30/24 01:41 linaclotide [Linzess] Allergy Mild Rash Verified 10/30/24 01:41 Active Medications: Current Medications Chlorhexidine Gluconate (Chlorhexidine Gluc Oral Rinse 15 Ml Mouthwash) 15 ml BUCCAL Q8H [place] Last Admin: 10/30/24 10:26 Dose: 15 ml Heparin Sodium (Porcine) (Heparin Sodium,Porcine 5,000 Unit/Ml Vial) 5,000 unit SUBCUT Q8H [place] Last Admin: 10/30/24 10:26 Dose: 5,000 unit Propofol (Diprivan) 1,000 mg in 100 mls @ 0 mls/hr IVCONT .Q0M [place]; Protocol Last Titration: 10/30/24 10:00 Dose: 0 mcg/kg/min, 0 mls/hr Fentanyl (Sublimaze/Ns) 1,000 mcg in 100 mls @ 0 mls/hr IVCONT .Q0M [place]; Protocol Last Titration: 10/30/24 11:05 Dose: 0 mcg/hr, 0 mls/hr Norepinephrine Bitartrate (Levophed) 8 mg in 250 mls @ 0 mls/hr IVCONT .Q0M [place]; Protocol Last Titration: 10/30/24 10:34 Dose: 0.03 mcg/kg/min, 4.31 mls/hr Dexmedetomidine HCl (Precedex) 400 mcg in 100 mls @ 0 mls/hr IVCONT .Q0M [place]; Protocol Naloxone HCl (Naloxone Hcl 0.4 Mg/Ml Vial) 0.2 mg IVPUSH Q2M PRN PRN Reason: Excessive sedation or RR < 8 Home Medications ?Medication ?Instructions ?Recorded ?Confirmed ?Last Taken ?Type calcium 500 mg (as 1 tab PO DAILY 06/26/24 10/21/24 10/20/24 History carbonate)-vitamin D3 10 mcg (400 unit) tablet albuterol sulfate 2.5 mg/3 mL 2.5 mg inhalation Q4H PRN 07/13/24 10/21/24 Unknown History (0.083 %) solution for nebulization Shortness Of Breath/Wheezing losartan 50 mg tablet 50 mg PO DAILY 07/17/24 10/21/24 10/20/24 History ipratropium 0.5 mg-albuterol 3 mg 3 ml inhalation TID 09/30/24 10/21/24 10/20/24 History (2.5 mg base)/3 mL nebulization soln tiotropium 2.5 mcg-olodaterol 2.5 2 puff inhalation DAILY 09/30/24 10/21/24 10/20/24 History mcg/actuation mist for inhalation ([employer] Respimat) esomeprazole magnesium 40 mg 40 mg PO DAILY@0630 10/17/24 10/21/24 10/20/24 History capsule,delayed release tizanidine 4 mg tablet 4 mg PO Q12H muscle spasm 10/21/24 10/21/24 10/20/24 History Physical Exam 2 Vital Signs: Vital Signs: Last Vital Signs Temp 98.2 F 10/30/24 10:00 Pulse 85 10/30/24 11:00 Resp 20 10/30/24 11:00 BP 108/59 L 10/30/24 11:00 Pulse Ox 97 10/30/24 11:00 O2 Del Method Nasal Cannula 10/30/24 11:00 O2 Flow Rate 2 10/30/24 11:00 FiO2 30 10/30/24 10:00 Oxygen Flow Rate 30 10/30/24 08:21 BMI result Body Mass Index 33.0 Const: General: no acute distress, alert and awake Nutritional Appearance: obese Eyes: Sclerae: sclerae normal EOM: EOMs intact bilaterally Neck: Neck: Yes no lymphadenopathy, Yes trachea midline and Yes supple Resp: Effort & Inspection: normal respiratory effort and no respiratory distress Auscultation: clear to auscultation bilaterally Cardio: Rate: tachycardic Rhythm: regular rhythm Heart sounds: no gallops, no murmurs and no rubs GI: Palpation (GI): Soft to palpation and Other GI palpation findings present ( Nontender) Auscultation: normal bowel sounds Extrem: General: No clubbing, No cyanosis and Yes edema (Trace bilateral) Results Labs 10/30/24 01:52 10/30/24 01:52 Labs: Laboratory Results - last 24 hr 10/30/24 10/30/24 10/30/24 01:52 04:59 05:05 MCV 75.1 L MCH 22.8 L MCHC 30.3 L RDW 18.9 H Plt Count 514 H MPV 9.0 L Immature Gran % (Auto) 0.5 H Neut % (Auto) 78.9 H Lymph % (Auto) 12.6 L [place] % (Auto) 7.6 Eos % (Auto) 0.2 Baso % (Auto) 0.2 Lymph # (Auto) 3.8 [place] # (Auto) 2.3 H Eos # (Auto) 0.1 Baso # (Auto) 0.1 Abs Immat Gran (auto) 0.16 H Absolute Neuts (auto) 23.8 H Absolute Nucleated RBC 0.000 Nucleated RBC % (auto) 0.0 Smear Tech's Comments VERIFIED O2 Saturation ABG pH at Pt Temp ABG pCO2 at Pt Temp ABG pO2 at Pt Temp ABG HCO3 ABG Base Excess (Actual) VBG pH 7.48 H 7.31 L VBG pCO2 38 57 VBG pO2 57 67 VBG HCO3 28 H 29 H VBG O2 Saturation 88.0 89.0 VBG Base Excess 5.1 2.0 Anion Gap 21 H Estim Creat Clear Calc 58.6 Estimated GFR 59 Random Glucose 123 H Lactic Acid 2.5 H* Lactic Acid F/U @ 2Hr 1.3 Calcium 9.1 Magnesium 1.7 Total Bilirubin 0.5 AST 36 H ALT 16 Alkaline Phosphatase 80 B-Natriuretic Peptide 58 Total Protein 7.2 Albumin 3.9 Urine Opiates Screen Ur Buprenorphine Scrn Ur Oxycodone Screen Urine Methadone Screen Urine Fentanyl Screen Ur Barbiturates Screen Ur Phencyclidine Scrn Ur Amphetamines Screen U Benzodiazepines Scrn Urine Cocaine Screen U Marijuana (THC) Screen 10/30/24 10/30/24 06:06 08:46 MCV MCH MCHC RDW Plt Count MPV Immature Gran % (Auto) Neut % (Auto) Lymph % (Auto) [place] % (Auto) Eos % (Auto) Baso % (Auto) Lymph # (Auto) [place] # (Auto) Eos # (Auto) Baso # (Auto) Abs Immat Gran (auto) Absolute Neuts (auto) Absolute Nucleated RBC Nucleated RBC % (auto) Smear Tech's Comments O2 Saturation 90.0 ABG pH at Pt Temp 7.38 ABG pCO2 at Pt Temp 48 H ABG pO2 at Pt Temp 67 L ABG HCO3 29 H ABG Base Excess (Actual) 3.2 VBG pH VBG pCO2 VBG pO2 VBG HCO3 VBG O2 Saturation VBG Base Excess Anion Gap Estim Creat Clear Calc Estimated GFR Random Glucose Lactic Acid Lactic Acid F/U @ 2Hr Calcium Magnesium Total Bilirubin AST ALT Alkaline Phosphatase B-Natriuretic Peptide Total Protein Albumin Urine Opiates Screen POSITIVE H Ur Buprenorphine Scrn Not Detected Ur Oxycodone Screen Not Detected Urine Methadone Screen Not Detected Urine Fentanyl Screen Not Detected Ur Barbiturates Screen Not Detected Ur Phencyclidine Scrn Not Detected Ur Amphetamines Screen Not Detected U Benzodiazepines Scrn POSITIVE H Urine Cocaine Screen POSITIVE H U Marijuana (THC) Screen Not Detected Assessment and Plan (1) Cocaine use disorder: Status: Acute (2) CHF (congestive heart failure): Qualifiers: Heart failure chronicity: unspecified Heart failure type: unspecified Qualified Code(s): I50.9 - Heart failure, unspecified Status: Acute (3) Obesity hypoventilation syndrome: Status: Acute (4) Acute respiratory failure with hypoxia and hypercarbia: Status: Acute (5) Chronic lung disease: Status: Acute Plan Assessment: 54-year-old lady with underlying asthma/COPD overlap syndrome, chronic supplemental oxygen 2-3 L dependent, HENRY with OHS admitted with acute on chronic hypoxic and hypercapnic respiratory failure initially requiring ventilatory support, now extubated Plan: Neuro: No acute issues. Cardiac: No acute issues. Underlying chronic systolic congestive heart failure. Pulmonary: Acute on chronic hypoxic and hypercapnic respiratory failure initially requiring ventilatory support, now extubated. Underlying HENRY with ohs requiring nocturnal BiPAP. Underlying COPD 2-3 L supplemental oxygen dependent. Underlying cocaine abuse. Renal: No acute issues. Endo: No acute issues. GI: No acute issues. ID: No acute issues Heme/Onc: No acute issues. Psych: No acute issues. Miscellaneous: No acute issues. Prophylaxis: Heparin Diet: Regular Critical care time spent: 60 minute
[2024-10-30] MEDS: Ampicillin Sodium/Sulbactam Na 3 GM in 0.9 % Sodium Chloride 100 ML IV ×2 (13:41→18:17)
--- NOTE | 2024-10-30 14:10 | MHC.CM.PN ---
Pt readmitted to ICU w/respiratory failure in the setting of non compliance with CPAP and + cocaine usage. Pt resides w/sister, has [employer]ILL[employer] care and home O2 via [employer]. She has a walker, w/c, cane and CPAP. PCP is Joe Hale: HCP on file. Pt with a hx of readmissions , medication/treatment non compliance and ongoing substance use. CARE team consult requested. Pt will return to home w/existing services: may need assistance with transportation.
[2024-10-30] MEDS: Albuterol/Iprat 2.5/0.5MG 3 ML AMPUL.NEB INHALE ×2 (15:34→20:08)
[2024-10-30] MEDS: dexmedeTOMIDine HCL/NS 400 MCG/100 ML PLAST..BAG 17.24 MCG IVCONT ×2 (16:12→21:55)
[2024-10-30 16:32] LABS: Glucose, Whole Blood 153 mg/dL (60-115)
[2024-10-30] MEDS: Insulin Lispro 100 UNIT/ML 3 ML VIAL SUBCUT (16:40)
--- NOTE | 2024-10-30 18:41 | PC.NURSE ---
Assumed care of patient 09:45 Pt required levophed gtt for MAP less than goal 65. Gtt started at 10:22. Propofol off per MD. 10:45 patient following commands, BARROW. Per MD started on PSV trial 88, 40% 11:10 Patient extubated to Bipap 14/5, 30% Pt agitataed RASS 2+, nonpurposeful movement of extremities pulling Bipap, Bipap moving out of place. 2mg Versed IVP given per MD. Minimal effect. Pt started on Precedex gtt per protocol. Precedex gtt running at 0.05 New IV site inserted #[id number] left Forearm. Pt tolerated well. Pt remains on Bipap at change of shift 19:00
--- NOTE | 2024-10-30 19:39 | PHA.MEDREC ---
Addendum entered by Moira Zaman [facility] 10/30/24 19:58: Reviewes by [facility]/. Pt filled topiramate 25mg BID on 10/22, 09/04, 07/18, & 07/14. This was added back on to the med rec as there were recent claims. Original Note: Pharmacy Consult ? Medication Reconciliation Pharmacy has completed the medication reconciliation. Attempted to speak with patient many times but patient is non responsive. I tried patients daughter/HCP Jaja and she was not much help either since her moms medications have been changing recently and stated her mom has been in and out of the hospital in the last month. I utilized a discharge packet from 10/22 to confirm the med rec. Patient was prescribed Prednisone 20mg 10/25 for 5 days and Topiramate 25mg 10/22 for 7 days and looking at the day supply of those, patient should be done with these both and I took them off the med rec.
[2024-10-30 21:44] LABS: Glucose, Whole Blood 101 mg/dL (60-115)
[2024-10-31] VITALS (45 sets, daily range): BP systolic 84–162; BP diastolic 46–87; PULSE 77–128; RESP 18–30; TEMP 36.9–37.7; O2SAT 90–98; BMI 32.9
[2024-10-31] MEDS: Ampicillin Sodium/Sulbactam Na 3 GM in 0.9 % Sodium Chloride 100 ML IV ×4 (00:06→18:34)
[2024-10-31] MEDS: Heparin Sodium,Porcine 5,000 UNIT/ML VIAL 5000 UNIT SUBCUT ×3 (00:06→17:18)
[2024-10-31] MEDS: dexmedeTOMIDine HCL/NS 400 MCG/100 ML PLAST..BAG 9.58 MCG IVCONT (03:47)
--- NOTE | 2024-10-31 04:16 | HE.ICUCC ---
ICU Critical Care Nursing Note Assumed care of patient at 1900 Patient alert to person only, vague at times. Sinus rhythm with PAC's on telemetry Patient remains on bipap/ wheezes/rhonchi throughout lung gallagher Scattered bruising on arms/legs/abdomen POC 101 at hs Patient continues non purposeful movements at times/ Precedex infusing .7 mcg/kg/hr Levophed titrating down/ VSS
[2024-10-31] MEDS: Albuterol/Iprat 2.5/0.5MG 3 ML AMPUL.NEB INHALE ×5 (04:27→20:11)
[2024-10-31] MEDS: fentaNYL citrate/PF 100 MCG/2 ML VIAL 50 MCG IVPUSH (04:40)
[2024-10-31 04:55] LABS: VBG Base Excess -0.8 mmol/L; VBG HCO3 25 mmol/L (22-26); VBG pCO2 49 mmHg; VBG pH 7.31 (7.32-7.43); VBG pO2 59 mmHg
[2024-10-31 05:12] LABS: Basophils Absolute Auto 0.1 X10*3/uL (0.0-0.2); Basophils Percent Auto 0.2 % (0-2); Eosinophils Absolute Auto 0.1 X10*3/uL (0.0-0.4); Eosinophils Percent Auto 0.3 % (0-4); Imm Gran Abs Auto 0.12 X10*3/uL (0.00-0.03); Imm Gran Pct Auto 0.4 % (0.0-0.4); Lymphocytes Absolute Auto 5.7 X10*3/uL (1.2-4.9); MANUAL DIFF FLAG SCAN; Mean Corpuscular HGB Conc 28.9 g/dl (31.0-35.0); Mean Corpuscular Hemoglobin 23.2 pg (27.0-33.0); Mean Corpuscular Volume 80.2 fL (80.0-98.0); Mean Platelet Volume 9.1 fL (9.4-12.3); Monocytes Percent Auto 7.5 % (2-11); Neutrophils Percent Auto 70.6 % (45-73); Platelet Count 405 X10*3/uL (160-400); Red Blood Count 4.74 X10*6/uL (4.20-5.50); Red Cell Distribution Width 19.5 % (11.0-16.0); SCAN SMEAR FLAG 1; White Blood Count 26.9 X10*3/uL (4.8-10.8)
[2024-10-31 05:34] LABS: Albumin Level 3.7 g/dL (3.5-5.0); Anion Gap 19 (12-20); Blood Urea Nitrogen 22 mg/dL (9-16); Carbon Dioxide 24 mmol/L (22-29); Chloride 105 mmol/L (96-108); Creatinine Clr Calc Pharmacy 68.3; Estimated Glomerular Filt Rate > 60; Glucose Random 161 mg/dL (60-115); Magnesium 2.3 mg/dL (1.6-2.6); Phosphorus 3.9 mg/dL (2.7-4.5); Potassium 4.5 mmol/L (3.3-5.1); Sodium 143 mmol/L (135-145)
[2024-10-31 05:36] LABS: SLIDE REVIEW VERIFIED
[2024-10-31 07:32] LABS: Glucose, Whole Blood 150 mg/dL (60-115)
--- NOTE | 2024-10-31 09:54 | P.PNCC_ITS ---
Subjective Subjective Date of Service: 10/31/24 Interval History: 54-year-old lady with underlying severe asthma/COPD overlap syndrome on 2-3 L of supplemental O2 at baseline, cocaine abuse, HENRY with obesity hypoventilation with suboptimal compliance with nocturnal BiPAP, systolic congestive heart failure, hypertension admitted on 10/30/2024 with complaints of worsening dyspnea intubated in the emergency room and extubated after arrival to the intensive care unit. No events overnight. Continues to be on/off BiPAP support. Critical Care Time (minutes): 45 Physical Exam 2 Vital Signs: Vital Signs: Last Vital Signs Temp 99.1 F 10/31/24 09:00 Pulse 93 10/31/24 09:11 Resp 22 H 10/31/24 09:00 BP 125/73 10/31/24 09:11 Pulse Ox 94 10/31/24 09:00 O2 Del Method BiPAP 10/31/24 09:00 O2 Flow Rate 2 10/30/24 11:00 FiO2 30 10/31/24 09:00 Oxygen Flow Rate 30 10/30/24 08:21 BMI result Body Mass Index 32.9 Const: General: no acute distress and lethargic (Arousable) Nutritional Appearance: obese and Edematous Orientation/consciousness: lethargic (Arousable) Eyes: Sclerae: sclerae normal EOM: EOMs intact bilaterally Neck: Neck: Yes no lymphadenopathy, Yes trachea midline and Yes supple Resp: Auscultation: crackles (Mild bilateral) Cardio: Rate: regular rate Rhythm: regular rhythm Heart sounds: no gallops, no murmurs and no rubs GI: Palpation (GI): Soft to palpation and Other GI palpation findings present ( Nontender) Auscultation: normal bowel sounds Extrem: General: No clubbing, No cyanosis and Yes edema (1+ bilateral) Objective Data Labs 10/31/24 04:46 10/31/24 04:46 Labs: Laboratory Results - last 24 hr 10/30/24 10/30/24 10/31/24 16:28 21:40 04:46 WBC 26.9 H RBC 4.74 Hgb 11.0 L Hct 38.0 MCV 80.2 D MCH 23.2 L MCHC 28.9 L RDW 19.5 H Plt Count 405 H MPV 9.1 L Immature Gran % (Auto) 0.4 Neut % (Auto) 70.6 Lymph % (Auto) 21.0 [place] % (Auto) 7.5 Eos % (Auto) 0.3 Baso % (Auto) 0.2 Lymph # (Auto) 5.7 H [place] # (Auto) 2.0 H Eos # (Auto) 0.1 Baso # (Auto) 0.1 Abs Immat Gran (auto) 0.12 H Absolute Neuts (auto) 19.0 H Absolute Nucleated RBC 0.000 Nucleated RBC % (auto) 0.0 Smear Tech's Comments VERIFIED VBG pH VBG pCO2 VBG pO2 VBG HCO3 VBG O2 Saturation VBG Base Excess Sodium 143 Potassium 4.5 Chloride 105 Carbon Dioxide 24 Anion Gap 19 BUN 22 H Creatinine 0.84 Estim Creat Clear Calc 68.3 Estimated GFR > 60 POC Glucose 153 H 101 Random Glucose 161 H Calcium 9.0 Phosphorus 3.9 Magnesium 2.3 Albumin 3.7 10/31/24 10/31/24 04:50 07:27 WBC RBC Hgb Hct MCV MCH MCHC RDW Plt Count MPV Immature Gran % (Auto) Neut % (Auto) Lymph % (Auto) [place] % (Auto) Eos % (Auto) Baso % (Auto) Lymph # (Auto) [place] # (Auto) Eos # (Auto) Baso # (Auto) Abs Immat Gran (auto) Absolute Neuts (auto) Absolute Nucleated RBC Nucleated RBC % (auto) Smear Tech's Comments VBG pH 7.31 L VBG pCO2 49 VBG pO2 59 VBG HCO3 25 VBG O2 Saturation 83.0 VBG Base Excess -0.8 Sodium Potassium Chloride Carbon Dioxide Anion Gap BUN Creatinine Estim Creat Clear Calc Estimated GFR POC Glucose 150 H Random Glucose Calcium Phosphorus Magnesium Albumin Microbiology Microbiology Results: Microbiology 10/30/24 01:52 Blood - Venous Blood Culture - Preliminary No growth after 24 hours. 10/30/24 01:52 Blood - Venous Blood Culture - Preliminary No growth after 24 hours. Progress Note: A&P Assessment and plan (1) Cocaine use disorder: Status: Acute (2) CHF (congestive heart failure): Status: Acute (3) Acute respiratory failure with hypoxia and hypercarbia: Status: Acute (4) Chronic lung disease: Status: Acute (5) Obesity hypoventilation syndrome: Status: Acute Plan Assessment: 54-year-old lady with underlying asthma/COPD overlap syndrome, chronic supplemental oxygen 2-3 L dependent, HENRY with OHS admitted with acute on chronic hypoxic and hypercapnic respiratory failure initially requiring ventilatory support, now extubated Plan: Neuro: No acute issues. Cardiac: No acute issues. Underlying chronic systolic congestive heart failure. Pulmonary: Acute on chronic hypoxic and hypercapnic respiratory failure initially requiring ventilatory support, now extubated to BiPAP. Continues to require BiPAP support on/off. Continue to titrate off as tolerated. Underlying HENRY with ohs requiring nocturnal BiPAP. Underlying COPD 2-3 L supplemental oxygen dependent. Underlying cocaine abuse. Renal: No acute issues. Endo: No acute issues. GI: No acute issues. ID: Empiric coverage for pulmonary aspiration. Heme/Onc: No acute issues. Psych: No acute issues. Miscellaneous: No acute issues. Prophylaxis: Heparin Diet: Regular Critical care time spent: 45 minute Quality Stroke Does the patient have a stroke diagnosis?: No VTE Prior VTE?: No VTE Risk Level:: Medical - moderate - high VTE Device Contraindication: Treatment Not Indicated VTE Drug Contraindication: N/A - Med Ordered
[2024-10-31 12:07] LABS: Glucose, Whole Blood 125 mg/dL (60-115)
[2024-10-31] MEDS: dexmedeTOMIDine HCL/NS 400 MCG/100 ML PLAST..BAG 13.41 MCG IVCONT ×2 (12:38→19:35)
[2024-10-31] MEDS: Norepinephrine Bitartrate/D5W 8 MG/250 ML PLAST..BAG 7.18 MG IVCONT (12:42)
[2024-10-31 13:05] LABS: Venous Blood Gas Refer to POC result
[2024-10-31 17:19] LABS: Glucose, Whole Blood 118 mg/dL (60-115)
[2024-10-31 21:13] LABS: Glucose, Whole Blood 95 mg/dL (60-115)
[2024-11-01] VITALS (32 sets, daily range): BP systolic 100–176; BP diastolic 57–110; PULSE 68–104; RESP 14–26; TEMP 37.1–37.8; O2SAT 90–98; BMI 27.9
[2024-11-01] MEDS: Ampicillin Sodium/Sulbactam Na 3 GM in 0.9 % Sodium Chloride 100 ML IV ×4 (00:30→18:16)
[2024-11-01] MEDS: Heparin Sodium,Porcine 5,000 UNIT/ML VIAL 5000 UNIT SUBCUT ×3 (00:31→17:10)
[2024-11-01] MEDS: dexmedeTOMIDine HCL/NS 400 MCG/100 ML PLAST..BAG 13.41 MCG IVCONT ×3 (02:59→21:14)
[2024-11-01 04:50] LABS: VBG Base Excess 4.2 mmol/L; VBG HCO3 26 mmol/L (22-26); VBG pCO2 32 mmHg; VBG pH 7.52 (7.32-7.43); VBG pO2 52 mmHg
[2024-11-01 05:02] LABS: Basophils Percent Auto 0.2 % (0-2); Eosinophils Absolute Auto 0.1 X10*3/uL (0.0-0.4); Eosinophils Percent Auto 0.9 % (0-4); Hematocrit 31.6 % (37.0-47.0); Hemoglobin 9.1 g/dl (12.0-16.0); Imm Gran Abs Auto 0.06 X10*3/uL (0.00-0.03); Imm Gran Pct Auto 0.5 % (0.0-0.4); Lymphocytes Absolute Auto 1.3 X10*3/uL (1.2-4.9); Lymphocytes Percent Auto 11.1 % (20-40); MANUAL DIFF FLAG SCAN; Mean Corpuscular HGB Conc 28.8 g/dl (31.0-35.0); Mean Corpuscular Hemoglobin 22.7 pg (27.0-33.0); Mean Corpuscular Volume 78.8 fL (80.0-98.0); Mean Platelet Volume 9.7 fL (9.4-12.3); Monocytes Absolute Auto 0.7 X10*3/uL (0.1-1.2); Monocytes Percent Auto 6.3 % (2-11); Neutrophils Absolute Auto 9.5 x10*3/uL (2.0-8.3); PLT CLUMP 1; Red Blood Count 4.01 X10*6/uL (4.20-5.50); Red Cell Distribution Width 19.3 % (11.0-16.0); SCAN SMEAR FLAG 1
[2024-11-01 05:02] LABS: Venous Blood Gas Refer to POC result
[2024-11-01] MEDS: Albuterol/Iprat 2.5/0.5MG 3 ML AMPUL.NEB INHALE ×5 (05:05→20:25)
[2024-11-01 05:16] LABS: Albumin Level 3.2 g/dL (3.5-5.0); Anion Gap 17 (12-20); Blood Urea Nitrogen 20 mg/dL (9-16); Calcium 8.6 mg/dL (8.4-10.2); Carbon Dioxide 25 mmol/L (22-29); Chloride 108 mmol/L (96-108); Creatinine Clr Calc Pharmacy 95.6; Estimated Glomerular Filt Rate > 60; Glucose Random 85 mg/dL (60-115); Phosphorus 2.6 mg/dL (2.7-4.5); Potassium 3.6 mmol/L (3.3-5.1); Sodium 146 mmol/L (135-145)
[2024-11-01 05:19] LABS: Platelet Count 308 X10*3/uL (160-400); White Blood Count 11.7 X10*3/uL (4.8-10.8)
[2024-11-01 05:20] LABS: SLIDE REVIEW VERIFIED
[2024-11-01] MEDS: fentaNYL citrate/PF 100 MCG/2 ML VIAL 50 MCG IVPUSH (06:32)
[2024-11-01 07:41] LABS: Glucose, Whole Blood 103 mg/dL (60-115)
[2024-11-01] MEDS: 0.9 % Sodium Chloride Flush 3 ML SYRINGE IVFLUSH ×2 (08:43→15:00)
[2024-11-01] MEDS: Albumin Human 25 % 100 ML IV ×2 (08:46→14:43)
--- NOTE | 2024-11-01 10:44 | P.PNCC_ITS ---
Subjective Subjective Date of Service: 11/01/24 Interval History: 54-year-old lady with underlying severe asthma/COPD overlap syndrome on 2-3 L of supplemental O2 at baseline, cocaine abuse, HENRY with obesity hypoventilation with suboptimal compliance with nocturnal BiPAP, systolic congestive heart failure, hypertension admitted on 10/30/2024 with complaints of worsening dyspnea intubated in the emergency room and extubated after arrival to the intensive care unit. No events overnight. Continues to be on/off BiPAP support. Critical Care Time (minutes): 0 Physical Exam 2 Vital Signs: Vital Signs: Last Vital Signs Temp 99.5 F 11/01/24 10:00 Pulse 80 11/01/24 10:00 Resp 26 H 11/01/24 10:00 BP 133/63 11/01/24 10:00 Pulse Ox 94 11/01/24 10:00 O2 Del Method BiPAP 11/01/24 10:00 O2 Flow Rate 2 10/30/24 11:00 FiO2 28 11/01/24 10:00 Oxygen Flow Rate 30 10/30/24 08:21 BMI result Body Mass Index 27.9 Const: General: no acute distress and lethargic (arousable) Nutritional Appearance: obese Orientation/consciousness: lethargic (arousable) Eyes: Sclerae: sclerae normal EOM: EOMs intact bilaterally Neck: Neck: Yes no lymphadenopathy, Yes trachea midline and Yes supple Resp: Effort & Inspection: normal respiratory effort and no respiratory distress Auscultation: clear to auscultation bilaterally Cardio: Rate: regular rate Rhythm: regular rhythm Heart sounds: no gallops, no murmurs and no rubs GI: Palpation (GI): Soft to palpation and Other GI palpation findings present ( Nontender) Auscultation: normal bowel sounds Extrem: General: No clubbing, No cyanosis and Yes edema (trace bilateral) Objective Data Labs 11/01/24 04:43 11/01/24 04:43 Labs: Laboratory Results - last 24 hr 10/31/24 10/31/24 10/31/24 12:03 17:15 21:10 WBC RBC Hgb Hct MCV MCH MCHC RDW Plt Count MPV Immature Gran % (Auto) Neut % (Auto) Lymph % (Auto) L[place] % (Auto) Eos % (Auto) Baso % (Auto) Lymph # (Auto) [place] # (Auto) Eos # (Auto) Baso # (Auto) Abs Immat Gran (auto) Absolute Neuts (auto) Absolute Nucleated RBC Nucleated RBC % (auto) Smear Tech's Comments VBG pH VBG pCO2 VBG pO2 VBG HCO3 VBG O2 Saturation VBG Base Excess Sodium Potassium Chloride Carbon Dioxide Anion Gap BUN Creatinine Estim Creat Clear Calc Estimated GFR POC Glucose 125 H 118 H 95 Random Glucose Calcium Phosphorus Magnesium Albumin 11/01/24 11/01/24 11/01/24 04:43 04:46 07:38 WBC 11.7 H RBC 4.01 L Hgb 9.1 L Hct 31.6 L MCV 78.8 L MCH 22.7 L MCHC 28.8 L RDW 19.3 H Plt Count 308 MPV 9.7 Immature Gran % (Auto) 0.5 H Neut % (Auto) 81.0 H Lymph % (Auto) 11.1 L Loving % (Auto) 6.3 Eos % (Auto) 0.9 Baso % (Auto) 0.2 Lymph # (Auto) 1.3 Loving # (Auto) 0.7 Eos # (Auto) 0.1 Baso # (Auto) 0.0 Abs Immat Gran (auto) 0.06 H Absolute Neuts (auto) 9.5 H Absolute Nucleated RBC 0.000 Nucleated RBC % (auto) 0.0 Smear Tech's Comments VERIFIED VBG pH 7.52 H VBG pCO2 32 VBG pO2 52 VBG HCO3 26 VBG O2 Saturation 85.0 VBG Base Excess 4.2 Sodium 146 H Potassium 3.6 Chloride 108 Carbon Dioxide 25 Anion Gap 17 BUN 20 H Creatinine 0.60 Estim Creat Clear Calc 95.6 Estimated GFR > 60 POC Glucose 103 Random Glucose 85 Calcium 8.6 Phosphorus 2.6 L Magnesium 2.0 Albumin 3.2 L Microbiology Microbiology Results: Microbiology 10/30/24 01:52 Blood - Venous Blood Culture - Preliminary No growth after 48 hours. 10/30/24 01:52 Blood - Venous Blood Culture - Preliminary No growth after 48 hours. Progress Note: A&P Assessment and plan (1) Acute respiratory failure with hypoxia and hypercarbia: Status: Acute (2) Cocaine use disorder: Status: Acute (3) CHF (congestive heart failure): Status: Acute (4) Diabetes mellitus: Status: Acute Plan Assessment: 54-year-old lady with underlying asthma/COPD overlap syndrome, chronic supplemental oxygen 2-3 L dependent, HENRY with OHS admitted with acute on chronic hypoxic and hypercapnic respiratory failure initially requiring ventilatory support, now extubated Plan: Neuro: No acute issues. Cardiac: No acute issues. Underlying chronic systolic congestive heart failure. Pulmonary: Acute on chronic hypoxic and hypercapnic respiratory failure initially requiring ventilatory support, now extubated to BiPAP. Continues to require BiPAP support on/off. Continue to titrate off as tolerated. Underlying HENRY with ohs requiring nocturnal BiPAP. Underlying COPD 2-3 L supplemental oxygen dependent. Underlying cocaine abuse. Renal: No acute issues. Endo: No acute issues. GI: No acute issues. ID: Empiric coverage for pulmonary aspiration. Heme/Onc: No acute issues. Psych: No acute issues. Miscellaneous: No acute issues. Prophylaxis: Heparin Diet: Regular Quality Stroke Does the patient have a stroke diagnosis?: No VTE Prior VTE?: No VTE Risk Level:: Medical - moderate - high VTE Device Contraindication: Treatment Not Indicated VTE Drug Contraindication: N/A - Med Ordered
[2024-11-01 11:31] LABS: Glucose, Whole Blood 91 mg/dL (60-115)
[2024-11-01] MEDS: Furosemide 40 MG/4 ML VIAL IVPUSH (11:50)
[2024-11-01 16:28] LABS: Glucose, Whole Blood 115 mg/dL (60-115)
[2024-11-01] MEDS: dexmedeTOMIDine HCL/NS 400 MCG/100 ML PLAST..BAG 24.9 MCG IVCONT (17:10)
[2024-11-01] MEDS: Midazolam HCl 2 MG/2 ML VIAL IVPUSH (17:25)
[2024-11-01 19:44] LABS: Anion Gap 22 (12-20); Blood Urea Nitrogen 17 mg/dL (9-16); Calcium 8.8 mg/dL (8.4-10.2); Carbon Dioxide 22 mmol/L (22-29); Chloride 103 mmol/L (96-108); Creatinine Clr Calc Pharmacy 89.5; Estimated Glomerular Filt Rate > 60; Glucose Random 104 mg/dL (60-115); Magnesium 1.7 mg/dL (1.6-2.6); Phosphorus 2.8 mg/dL (2.7-4.5); Potassium 3.2 mmol/L (3.3-5.1); Sodium 144 mmol/L (135-145)
[2024-11-01] MEDS: Losartan Potassium 50 MG TABLET PO (20:13)
[2024-11-01] MEDS: Potassium Chloride Packet 20 MEQ PACKET 40 MEQ PO (20:14)
[2024-11-01 21:04] LABS: Glucose, Whole Blood 102 mg/dL (60-115)
[2024-11-02] VITALS (32 sets, daily range): BP systolic 110–165; BP diastolic 47–84; PULSE 75–130; RESP 16–27; TEMP 37.3–37.9; O2SAT 88–100; BMI 27.0
--- NOTE | 2024-11-02 | ECG_ITS ---
Test Reason : chest pain Blood Pressure : */* mmHG Vent. Rate : 104 BPM Atrial Rate : 104 BPM P-R Int : 122 ms QRS Dur : 90 ms QT Int : 356 ms P-R-T Axes : 68 105 76 degrees QTcB Int : 468 ms Sinus tachycardia with Premature atrial complexes Rightward axis Borderline ECG When compared with ECG of 30-Oct-2024 01:52, Premature atrial complexes are now Present Referred By: Palomo Vee Electronically Signed By: DAVIS WALKER
[2024-11-02] MEDS: Albuterol/Iprat 2.5/0.5MG 3 ML AMPUL.NEB INHALE ×5 (00:23→19:41)
[2024-11-02] MEDS: 0.9 % Sodium Chloride Flush 3 ML SYRINGE IVFLUSH ×4 (00:55→21:22)
[2024-11-02] MEDS: Midazolam HCl 2 MG/2 ML VIAL IVPUSH (01:11)
[2024-11-02] MEDS: Heparin Sodium,Porcine 5,000 UNIT/ML VIAL 5000 UNIT SUBCUT ×3 (01:11→17:09)
[2024-11-02] MEDS: Ampicillin Sodium/Sulbactam Na 3 GM in 0.9 % Sodium Chloride 100 ML IV ×4 (01:12→18:02)
[2024-11-02] MEDS: dexmedeTOMIDine HCL/NS 400 MCG/100 ML PLAST..BAG 13.41 MCG IVCONT (04:26)
[2024-11-02 05:56] LABS: VBG Base Excess 4.7 mmol/L; VBG HCO3 26 mmol/L (22-26); VBG pCO2 27 mmHg; VBG pH 7.57 (7.32-7.43); VBG pO2 46 mmHg
[2024-11-02 06:09] LABS: Venous Blood Gas Refer to POC result
[2024-11-02 06:17] LABS: MANUAL DIFF FLAG NO
[2024-11-02 06:19] LABS: Basophils Percent Auto 0.2 % (0-2); Eosinophils Absolute Auto 0.1 X10*3/uL (0.0-0.4); Eosinophils Percent Auto 1.3 % (0-4); Hematocrit 30.6 % (37.0-47.0); Imm Gran Abs Auto 0.05 X10*3/uL (0.00-0.03); Imm Gran Pct Auto 0.4 % (0.0-0.4); Lymphocytes Absolute Auto 1.5 X10*3/uL (1.2-4.9); Lymphocytes Percent Auto 13.6 % (20-40); Mean Corpuscular HGB Conc 29.4 g/dl (31.0-35.0); Mean Corpuscular Hemoglobin 22.9 pg (27.0-33.0); Mean Corpuscular Volume 77.9 fL (80.0-98.0); Mean Platelet Volume 9.1 fL (9.4-12.3); Monocytes Absolute Auto 0.9 X10*3/uL (0.1-1.2); Monocytes Percent Auto 7.7 % (2-11); Neutrophils Absolute Auto 8.6 x10*3/uL (2.0-8.3); Neutrophils Percent Auto 76.8 % (45-73); Platelet Count 375 X10*3/uL (160-400); Red Blood Count 3.93 X10*6/uL (4.20-5.50); Red Cell Distribution Width 18.8 % (11.0-16.0); White Blood Count 11.1 X10*3/uL (4.8-10.8)
[2024-11-02 06:35] LABS: Albumin Level 3.8 g/dL (3.5-5.0); Anion Gap 18 (12-20); Blood Urea Nitrogen 16 mg/dL (9-16); Carbon Dioxide 25 mmol/L (22-29); Chloride 105 mmol/L (96-108); Creatinine Clr Calc Pharmacy 81.1; Estimated Glomerular Filt Rate > 60; Glucose Random 86 mg/dL (60-115); Magnesium 1.8 mg/dL (1.6-2.6); Phosphorus 2.5 mg/dL (2.7-4.5); Potassium 3.6 mmol/L (3.3-5.1); Sodium 144 mmol/L (135-145)
[2024-11-02 07:29] LABS: Glucose, Whole Blood 100 mg/dL (60-115)
[2024-11-02] MEDS: Potassium Phosphate/NS 15 MMOL/250 ML PLAST..BAG 62.5 MMOL IV (08:26)
--- NOTE | 2024-11-02 08:56 | P.PNCC_ITS ---
Subjective Subjective Date of Service: 11/02/24 Interval History: Remained on BiPAP all day yesterday Has significant anxiety issues Critical Care Time (minutes): 35 Physical Exam 2 Vital Signs: Vital Signs: Last Vital Signs Temp 99.3 F 11/02/24 08:00 Pulse 87 11/02/24 08:00 Resp 22 H 11/02/24 08:00 BP 154/64 H 11/02/24 08:00 Pulse Ox 97 11/02/24 08:00 O2 Del Method Nasal Cannula 11/02/24 08:00 O2 Flow Rate 2 11/02/24 08:00 FiO2 28 11/02/24 07:00 Oxygen Flow Rate 30 10/30/24 08:21 BMI result Body Mass Index 27.0 General: Patient is chronically ill appearing and tired appearing Nutritional Appearance: well nourished and normal weight Eyes: appearance normal, both eyes and all related structures; Alignment and Position: alignment normal and position normal Neck: No lymphadenopathy, no thyromegaly Resp: bilateral air entry equal, occasional wheezes heard bilaterally Cardio: Regular rate, regular rhythm; Heart sounds: S1 normal heart sound present and S2 normal heart sound present GI: soft, nontender, no guarding, no hepatosplenomegaly : bladder normal to inspection, bladder normal to palpation, no renal angle tenderness Skin: no rashes or lesions noted and elasticity normal Neuro: oriented to person, oriented to place, oriented to time and moves all extremities Objective Data Labs 11/02/24 05:52 11/02/24 05:52 Labs: Laboratory Results - last 24 hr 11/01/24 11/01/24 11/01/24 11:27 16:25 19:03 WBC RBC Hgb Hct MCV MCH MCHC RDW Plt Count MPV Immature Gran % (Auto) Neut % (Auto) Lymph % (Auto) [place] % (Auto) Eos % (Auto) Baso % (Auto) Lymph # (Auto) [place] # (Auto) Eos # (Auto) Baso # (Auto) Abs Immat Gran (auto) Absolute Neuts (auto) Absolute Nucleated RBC Nucleated RBC % (auto) VBG pH VBG pCO2 VBG pO2 VBG HCO3 VBG O2 Saturation VBG Base Excess Sodium 144 Potassium 3.2 L Chloride 103 Carbon Dioxide 22 Anion Gap 22 H BUN 17 H Creatinine 0.59 Estim Creat Clear Calc 89.5 Estimated GFR > 60 POC Glucose 91 115 Random Glucose 104 Calcium 8.8 Phosphorus 2.8 Magnesium 1.7 Albumin 11/01/24 11/02/24 11/02/24 20:59 05:52 05:53 WBC 11.1 H RBC 3.93 L Hgb 9.0 L Hct 30.6 L MCV 77.9 L MCH 22.9 L MCHC 29.4 L RDW 18.8 H Plt Count 375 MPV 9.1 L Immature Gran % (Auto) 0.4 Neut % (Auto) 76.8 H Lymph % (Auto) 13.6 L [place] % (Auto) 7.7 Eos % (Auto) 1.3 Baso % (Auto) 0.2 Lymph # (Auto) 1.5 [place] # (Auto) 0.9 Eos # (Auto) 0.1 Baso # (Auto) 0.0 Abs Immat Gran (auto) 0.05 H Absolute Neuts (auto) 8.6 H Absolute Nucleated RBC 0.000 Nucleated RBC % (auto) 0.0 VBG pH 7.57 H VBG pCO2 27 VBG pO2 46 VBG HCO3 26 VBG O2 Saturation 80.0 VBG Base Excess 4.7 Sodium 144 Potassium 3.6 Chloride 105 Carbon Dioxide 25 Anion Gap 18 BUN 16 Creatinine 0.64 Estim Creat Clear Calc 81.1 Estimated GFR > 60 POC Glucose 102 Random Glucose 86 Calcium 9.0 Phosphorus 2.5 L Magnesium 1.8 Albumin 3.8 11/02/24 07:25 WBC RBC Hgb Hct MCV MCH MCHC RDW Plt Count MPV Immature Gran % (Auto) Neut % (Auto) Lymph % (Auto) [place] % (Auto) Eos % (Auto) Baso % (Auto) Lymph # (Auto) [place] # (Auto) Eos # (Auto) Baso # (Auto) Abs Immat Gran (auto) Absolute Neuts (auto) Absolute Nucleated RBC Nucleated RBC % (auto) VBG pH VBG pCO2 VBG pO2 VBG HCO3 VBG O2 Saturation VBG Base Excess Sodium Potassium Chloride Carbon Dioxide Anion Gap BUN Creatinine Estim Creat Clear Calc Estimated GFR POC Glucose 100 Random Glucose Calcium Phosphorus Magnesium Albumin Microbiology Microbiology Results: Microbiology 10/30/24 01:52 Blood - Venous Blood Culture - Preliminary No growth after 48 hours. 10/30/24 01:52 Blood - Venous Blood Culture - Preliminary No growth after 48 hours. Progress Note: A&P Assessment and plan (1) Cocaine use disorder: Status: Acute (2) Elevated brain natriuretic peptide (BNP) level: Status: Acute (3) CHF (congestive heart failure): Status: Acute (4) Abnormal EKG: Status: Acute (5) Diabetes mellitus: Status: Acute Plan Neuro: Anxiety disorder: UDS positive cocaine On Precedex for anxiolysis, tapered off this morning We will do as needed Zyprexa 10 mg IM We will consult Psychiatry as this has contributed to multiple admissions this month Respiratory: Acute on chronic hypercapnic hypoxemic respiratory failure due to COPD exacerbation; also has HENRY on 3L/min nasal canula oxygen. intubated on 10/30/2024, Extubated on the same day afternoon Currently needing BiPAP support as needed Duo nebs around the clock Continue ampicillin sulbactam for antibiotic coverage Diabetes mellitus: Blood sugars under control Sliding scale insulin Lines: Peripheral Prophylaxis: Heparin Quality Stroke Does the patient have a stroke diagnosis?: No VTE Prior VTE?: No VTE Risk Level:: Medical - moderate - high VTE Device Contraindication: Treatment Not Indicated VTE Drug Contraindication: N/A - Med Ordered
[2024-11-02] MEDS: Sertraline HCL 50 MG TABLET 150 MG PO (10:03)
[2024-11-02] MEDS: Topiramate 25 MG TABLET PO ×2 (10:03→19:36)
[2024-11-02 11:13] LABS: Glucose, Whole Blood 84 mg/dL (60-115)
[2024-11-02 11:34] LABS: Adenovirus PCR Not Detected (Not Detect.); Bordetella parapertussis PCR Not Detected (Not Detect.); Bordetella pertussis PCR Not Detected (Not Detect.); Chlamydia pneumoniae PCR Not Detected (Not Detect.); Coronavirus 229E PCR Not Detected (Not Detect.); Coronavirus HKU1 PCR Not Detected (Not Detect.); Coronavirus NL63 PCR Not Detected (Not Detect.); Coronavirus OC43 PCR Not Detected (Not Detect.); Human metapneumovirus PCR Not Detected (Not Detect.); Influenza A PCR Not Detected (Not Detect.); Influenza B PCR Not Detected (Not Detect.); Mycoplasma pneumoniae PCR Not Detected (Not Detect.); Parainfluenza 1 PCR Not Detected (Not Detect.); Parainfluenza 2 PCR Not Detected (Not Detect.); Parainfluenza 3 PCR Not Detected (Not Detect.); Parainfluenza 4 PCR Not Detected (Not Detect.); RSV PCR Not Detected (Not Detect.); Rhino/Enterovirus PCR Detected (Not Detect.)
[2024-11-02 12:17] LABS: Influenza A H1 PCR Not Detected (Not Detect.); Influenza A H1-2009 PCR Not Detected (Not Detect.); Influenza A H3 PCR Not Detected (Not Detect.); SARS-CoV-2 PCR Not Detected (Not Detect.)
[2024-11-02] MEDS: OLANZapine 10 MG VIAL IM (12:43)
--- NOTE | 2024-11-02 14:22 | PM.PSYCN ---
History of Present Illness Date of Service: 11/02/2024 Chief Complaint: Respiratory failure Reason for Consult: anxiety Discussed with referring provider: Yes Sources of Information: patient interviewed, chart reviewed and crisis/core team assessment reviewed HPI Narrative: Mrs. Scott is a 54 year-old woman who is currently admitted to ICU due to acute on chronic respiratory failure. Psychiatry asked see pt and treat anxiety. Pt was positive for cocaine. Pt seen in ICU. She is alert, has bipap on, able to talk short periods of time. She reports she feels anxious all the time. No specific trigger. Noted difficulty breathing and accessory muscle use. No SI/HI. Exam limited by current medical exacerbation. [facility] Medical History Cocaine use disorder Cocaine abuse GERD (gastroesophageal reflux disease) Constipation Non-insulin dependent type 2 diabetes mellitus HENRY (obstructive sleep apnea) Acute exacerbation of chronic obstructive airways disease Asthma with exacerbation Obesity hypoventilation syndrome COPD (chronic obstructive pulmonary disease) Chronic lung disease Hypoxic respiratory failure Nocturnal hypoxemia Diabetes mellitus COPD exacerbation Crack cocaine use Hyperkalemia Metabolic acidosis Leukocytosis Chest discomfort Chronic renal failure, stage 2 (mild) SOB (shortness of breath) Asthma Smoker Rotator cuff tendonitis GERD (gastroesophageal reflux disease) Chronic idiopathic constipation Bustos's esophagus Depression High triglycerides Gastroparesis Carpal tunnel syndrome of right wrist Nausea & vomiting Hernia Acute and chronic respiratory failure, unspecified whether with hypoxia or hypercapnia HTN (hypertension) Obesity (BMI 30-39.9) Knee pain, bilateral Surgical History History of cholecystectomy (~1988) History of carpal tunnel release Hx of tubal ligation History of pubovaginal sling (~2015) History of umbilical hernia repair (~2001) Hx of section History of open reduction and internal fixation (ORIF) procedure History of esophagogastroduodenoscopy (EGD) Diagnostics Vital Signs (24Hr): Vital Signs - 24 hr 11/01/24 15:00 11/01/24 15:04 11/01/24 15:15 Temperature 99.5 F Pulse Rate 92 Respiratory Rate 20 20 Blood Pressure 144/72 H Pulse Oximetry 95 Oxygen Delivery Method BiPAP Oxygen Flow Rate Fraction of Inspired Oxygen 28 28 11/01/24 15:15 11/01/24 16:00 11/01/24 16:54 Temperature 99.1 F 99.1 F Pulse Rate 87 98 84 Respiratory Rate 19 21 H 20 Blood Pressure 136/110 H 158/83 H Pulse Oximetry 94 96 Oxygen Delivery Method BiPAP BiPAP Oxygen Flow Rate Fraction of Inspired Oxygen 11/01/24 18:00 11/01/24 19:00 11/01/24 19:12 Temperature 99.1 F 99.3 F Pulse Rate 84 74 Respiratory Rate 24 H 25 H Blood Pressure 154/81 H 168/75 H Pulse Oximetry 95 96 Oxygen Delivery Method BiPAP BiPAP Oxygen Flow Rate Fraction of Inspired Oxygen 11/01/24 20:00 11/01/24 20:25 11/01/24 20:25 Temperature 99.3 F Pulse Rate 83 92 Respiratory Rate 21 H 21 H 21 H Blood Pressure 176/71 H Pulse Oximetry 97 Oxygen Delivery Method BiPAP Oxygen Flow Rate Fraction of Inspired Oxygen 11/01/24 21:00 11/01/24 22:00 11/01/24 23:00 Temperature 99.1 F 99.1 F 99.3 F Pulse Rate 77 92 79 Respiratory Rate 24 H 19 24 H Blood Pressure 143/76 H 151/72 H 148/72 H Pulse Oximetry 95 98 95 Oxygen Delivery Method BiPAP BiPAP BiPAP Oxygen Flow Rate Fraction of Inspired Oxygen 11/01/24 23:50 11/02/24 00:00 11/02/24 00:40 Temperature 99.7 F Pulse Rate 95 Respiratory Rate 23 H 21 H Blood Pressure 146/64 H Pulse Oximetry 98 Oxygen Delivery Method BiPAP Oxygen Flow Rate Fraction of Inspired Oxygen 11/02/24 01:00 11/02/24 02:00 11/02/24 03:00 Temperature 99.7 F 99.5 F 99.7 F Pulse Rate 85 88 75 Respiratory Rate 24 H 24 H 22 H Blood Pressure 139/66 140/68 H 143/47 H Pulse Oximetry 93 95 96 Oxygen Delivery Method BiPAP BiPAP BiPAP Oxygen Flow Rate Fraction of Inspired Oxygen 11/02/24 04:00 11/02/24 04:32 11/02/24 05:00 Temperature 99.7 F 99.9 F Pulse Rate 86 87 Respiratory Rate 22 H 25 H Blood Pressure 145/66 H 153/74 H Pulse Oximetry 95 95 Oxygen Delivery Method BiPAP BiPAP Oxygen Flow Rate Fraction of Inspired Oxygen 11/02/24 05:25 11/02/24 06:00 11/02/24 07:00 Temperature 99.9 F 99.3 F Pulse Rate 92 83 Respiratory Rate 21 H 20 23 H Blood Pressure 155/70 H 147/74 H Pulse Oximetry 95 94 Oxygen Delivery Method BiPAP BiPAP Oxygen Flow Rate Fraction of Inspired Oxygen 11/02/24 07:54 11/02/24 08:00 11/02/24 09:00 Temperature 99.3 F 99.1 F Pulse Rate 88 87 102 H Respiratory Rate 21 H 22 H 25 H Blood Pressure 154/64 H 147/78 H Pulse Oximetry 97 90 L Oxygen Delivery Method Nasal Cannula Nasal Cannula Oxygen Flow Rate 2 2 Fraction of Inspired Oxygen 11/02/24 10:00 11/02/24 10:57 11/02/24 11:00 Temperature Pulse Rate 124 H 107 H 119 H Respiratory Rate 22 H 17 25 H Blood Pressure 165/69 H 142/62 H Pulse Oximetry 93 93 Oxygen Delivery Method Nasal Cannula Nasal Cannula Oxygen Flow Rate 2 2 Fraction of Inspired Oxygen 11/02/24 11:33 11/02/24 12:00 11/02/24 13:00 Temperature Pulse Rate 111 H 100 Respiratory Rate 18 18 25 H Blood Pressure 147/66 H 164/76 H Pulse Oximetry 100 92 Oxygen Delivery Method CPAP CPAP Oxygen Flow Rate Fraction of Inspired Oxygen 11/02/24 14:00 Temperature Pulse Rate 110 H Respiratory Rate 25 H Blood Pressure 153/84 H Pulse Oximetry 95 Oxygen Delivery Method CPAP Oxygen Flow Rate Fraction of Inspired Oxygen 28 BMI result Body Mass Index 27.0 Labs 11/02/24 05:52 11/02/24 05:52 Labs: Laboratory Results - last 48 hr 10/31/24 10/31/24 11/01/24 17:15 21:10 04:43 WBC 11.7 H RBC 4.01 L Hgb 9.1 L Hct 31.6 L MCV 78.8 L MCH 22.7 L MCHC 28.8 L RDW 19.3 H Plt Count 308 MPV 9.7 Immature Gran % (Auto) 0.5 H Neut % (Auto) 81.0 H Lymph % (Auto) 11.1 L [place] % (Auto) 6.3 Eos % (Auto) 0.9 Baso % (Auto) 0.2 Lymph # (Auto) 1.3 [place] # (Auto) 0.7 Eos # (Auto) 0.1 Baso # (Auto) 0.0 Abs Immat Gran (auto) 0.06 H Absolute Neuts (auto) 9.5 H Absolute Nucleated RBC 0.000 Nucleated RBC % (auto) 0.0 Smear Tech's Comments VERIFIED VBG pH VBG pCO2 VBG pO2 VBG HCO3 VBG O2 Saturation VBG Base Excess Sodium 146 H Potassium 3.6 Chloride 108 Carbon Dioxide 25 Anion Gap 17 BUN 20 H Creatinine 0.60 Estim Creat Clear Calc 95.6 Estimated GFR > 60 POC Glucose 118 H 95 Random Glucose 85 Calcium 8.6 Phosphorus 2.6 L Magnesium 2.0 Albumin 3.2 L Respiratory Panel Keys Adenovirus (Rapid PCR) B.pert (TEM-PCR) B.parapertussis DNA PCR C. pneumoniae DNA (PCR) Coronavirus OC43 (PCR) Coronavirus HKU1 (PCR) Coronavirus 229E (PCR) Coronavirus NL63 (PCR) Human Metapneumovir PCR Influenza A (RT-PCR) Influenza A (H1) PCR Influ A (H1/09) PCR Influenza A (H3) PCR Influenza B (RT-PCR) M. pneumoniae (PCR) Parainfluenza 1 (PCR) Parainfluenza 2 (PCR) Parainfluenza 3 (PCR) Parainfluenza 4 (PCR) RSV (PCR) Entero/Rhino (PCR) SARS-CoV-2 RNA (RT-PCR) 11/01/24 11/01/24 11/01/24 04:46 07:38 11:27 WBC RBC Hgb Hct MCV MCH MCHC RDW Plt Count MPV Immature Gran % (Auto) Neut % (Auto) Lymph % (Auto) [place] % (Auto) Eos % (Auto) Baso % (Auto) Lymph # (Auto) [place] # (Auto) Eos # (Auto) Baso # (Auto) Abs Immat Gran (auto) Absolute Neuts (auto) Absolute Nucleated RBC Nucleated RBC % (auto) Smear Tech's Comments VBG pH 7.52 H VBG pCO2 32 VBG pO2 52 VBG HCO3 26 VBG O2 Saturation 85.0 VBG Base Excess 4.2 Sodium Potassium Chloride Carbon Dioxide Anion Gap BUN Creatinine Estim Creat Clear Calc Estimated GFR POC Glucose 103 91 Random Glucose Calcium Phosphorus Magnesium Albumin Respiratory Panel Keys Adenovirus (Rapid PCR) B.pert (TEM-PCR) B.parapertussis DNA PCR C. pneumoniae DNA (PCR) Coronavirus OC43 (PCR) Coronavirus HKU1 (PCR) Coronavirus 229E (PCR) Coronavirus NL63 (PCR) Human Metapneumovir PCR Influenza A (RT-PCR) Influenza A (H1) PCR Influ A () PCR Influenza A (H3) PCR Influenza B (RT-PCR) M. pneumoniae (PCR) Parainfluenza 1 (PCR) Parainfluenza 2 (PCR) Parainfluenza 3 (PCR) Parainfluenza 4 (PCR) RSV (PCR) Entero/Rhino (PCR) SARS-CoV-2 RNA (RT-PCR) 11/01/24 11/01/24 11/01/24 16:25 19:03 20:59 WBC RBC Hgb Hct MCV MCH MCHC RDW Plt Count MPV Immature Gran % (Auto) Neut % (Auto) Lymph % (Auto) [place] % (Auto) Eos % (Auto) Baso % (Auto) Lymph # (Auto) [place] # (Auto) Eos # (Auto) Baso # (Auto) Abs Immat Gran (auto) Absolute Neuts (auto) Absolute Nucleated RBC Nucleated RBC % (auto) Smear Tech's Comments VBG pH VBG pCO2 VBG pO2 VBG HCO3 VBG O2 Saturation VBG Base Excess Sodium 144 Potassium 3.2 L Chloride 103 Carbon Dioxide 22 Anion Gap 22 H BUN 17 H Creatinine 0.59 Estim Creat Clear Calc 89.5 Estimated GFR > 60 POC Glucose 115 102 Random Glucose 104 Calcium 8.8 Phosphorus 2.8 Magnesium 1.7 Albumin Respiratory Panel Keys Adenovirus (Rapid PCR) B.pert (TEM-PCR) B.parapertussis DNA PCR C. pneumoniae DNA (PCR) Coronavirus OC43 (PCR) Coronavirus HKU1 (PCR) Coronavirus 229E (PCR) Coronavirus NL63 (PCR) Human Metapneumovir PCR Influenza A (RT-PCR) Influenza A (H1) PCR Influ A () PCR Influenza A (H3) PCR Influenza B (RT-PCR) M. pneumoniae (PCR) Parainfluenza 1 (PCR) Parainfluenza 2 (PCR) Parainfluenza 3 (PCR) Parainfluenza 4 (PCR) RSV (PCR) Entero/Rhino (PCR) SARS-CoV-2 RNA (RT-PCR) 11/02/24 11/02/24 11/02/24 05:52 05:53 07:25 WBC 11.1 H RBC 3.93 L Hgb 9.0 L Hct 30.6 L MCV 77.9 L MCH 22.9 L MCHC 29.4 L RDW 18.8 H Plt Count 375 MPV 9.1 L Immature Gran % (Auto) 0.4 Neut % (Auto) 76.8 H Lymph % (Auto) 13.6 L [place] % (Auto) 7.7 Eos % (Auto) 1.3 Baso % (Auto) 0.2 Lymph # (Auto) 1.5 [place] # (Auto) 0.9 Eos # (Auto) 0.1 Baso # (Auto) 0.0 Abs Immat Gran (auto) 0.05 H Absolute Neuts (auto) 8.6 H Absolute Nucleated RBC 0.000 Nucleated RBC % (auto) 0.0 Smear Tech's Comments VBG pH 7.57 H VBG pCO2 27 VBG pO2 46 VBG HCO3 26 VBG O2 Saturation 80.0 VBG Base Excess 4.7 Sodium 144 Potassium 3.6 Chloride 105 Carbon Dioxide 25 Anion Gap 18 BUN 16 Creatinine 0.64 Estim Creat Clear Calc 81.1 Estimated GFR > 60 POC Glucose 100 Random Glucose 86 Calcium 9.0 Phosphorus 2.5 L Magnesium 1.8 Albumin 3.8 Respiratory Panel Keys Adenovirus (Rapid PCR) B.pert (TEM-PCR) B.parapertussis DNA PCR C. pneumoniae DNA (PCR) Coronavirus OC43 (PCR) Coronavirus HKU1 (PCR) Coronavirus 229E (PCR) Coronavirus NL63 (PCR) Human Metapneumovir PCR Influenza A (RT-PCR) Influenza A (H1) PCR Influ A (H1/09) PCR Influenza A (H3) PCR Influenza B (RT-PCR) M. pneumoniae (PCR) Parainfluenza 1 (PCR) Parainfluenza 2 (PCR) Parainfluenza 3 (PCR) Parainfluenza 4 (PCR) RSV (PCR) Entero/Rhino (PCR) SARS-CoV-2 RNA (RT-PCR) 11/02/24 11/02/24 10:05 11:06 WBC RBC Hgb Hct MCV MCH MCHC RDW Plt Count MPV Immature Gran % (Auto) Neut % (Auto) Lymph % (Auto) [place] % (Auto) Eos % (Auto) Baso % (Auto) Lymph # (Auto) [place] # (Auto) Eos # (Auto) Baso # (Auto) Abs Immat Gran (auto) Absolute Neuts (auto) Absolute Nucleated RBC Nucleated RBC % (auto) Smear Tech's Comments VBG pH VBG pCO2 VBG pO2 VBG HCO3 VBG O2 Saturation VBG Base Excess Sodium Potassium Chloride Carbon Dioxide Anion Gap BUN Creatinine Estim Creat Clear Calc Estimated GFR POC Glucose 84 Random Glucose Calcium Phosphorus Magnesium Albumin Respiratory Panel Keys See Note Adenovirus (Rapid PCR) Not Detected B.pert (TEM-PCR) Not Detected B.parapertussis DNA PCR Not Detected C. pneumoniae DNA (PCR) Not Detected Coronavirus OC43 (PCR) Not Detected Coronavirus HKU1 (PCR) Not Detected Coronavirus 229E (PCR) Not Detected Coronavirus NL63 (PCR) Not Detected Human Metapneumovir PCR Not Detected Influenza A (RT-PCR) Not Detected Influenza A (H1) PCR Not Detected Influ A (H1/09) PCR Not Detected Influenza A (H3) PCR Not Detected Influenza B (RT-PCR) Not Detected M. pneumoniae (PCR) Not Detected Parainfluenza 1 (PCR) Not Detected Parainfluenza 2 (PCR) Not Detected Parainfluenza 3 (PCR) Not Detected Parainfluenza 4 (PCR) Not Detected RSV (PCR) Not Detected Entero/Rhino (PCR) Detected A SARS-CoV-2 RNA (RT-PCR) Not Detected Mental Status Exam Mental Status Exam Narrative: Appearance: MO, difficulty breathing, able to speak briefly. Behavior: cooperative but limited due to medical condition/ respiratory distress Psychomotor: no agitation, no overt s/s of akathisia, nor tremors Speech: mumbles, some delay due to shortness of breath, minimally spontaneous TP: feeling anxious TC: feeling anxious No SI/HI No VH/AH No overt s/s of delusions Medications Medications Current Medications Albuterol/Ipratropium (Albuterol/Iprat 2.5/0.5mg 3 Ml Ampul.Neb) 3 ml INHALE RQ4H WHILE AWAKE FOLRENCE Last Admin: 11/02/24 10:53 Dose: 3 ml Heparin Sodium (Porcine) (Heparin Sodium,Porcine 5,000 Unit/Ml Vial) 5,000 unit SUBCUT Q8H [facility] Last Admin: 11/02/24 08:26 Dose: 5,000 unit Dexmedetomidine HCl (Precedex) 400 mcg in 100 mls @ 0 mls/hr IVCONT .Q0M [facility]; Protocol Last Titration: 11/02/24 08:45 Dose: 0 mcg/kg/hr, 0 mls/hr Ampicillin Sodium/Sulbactam (Sodium 3 gm/ Sodium Chloride) 100 mls @ 200 mls/hr IV Q6H [facility] Last Infusion: 11/02/24 12:46 Dose: Infused Insulin Human Lispro (Insulin Lispro 100 Unit/Ml 3 Ml Vial) 0 unit SUBCUT QIDACHS [facility]; Protocol Last Admin: 11/02/24 11:28 Dose: Not Given Naloxone HCl (Naloxone Hcl 0.4 Mg/Ml Vial) 0.2 mg IVPUSH Q2M PRN PRN Reason: Excessive sedation or RR < 8 Sertraline HCl (Sertraline Hcl 50 Mg Tablet) 150 mg PO DAILY [facility] Last Admin: 11/02/24 10:03 Dose: 150 mg Sodium Chloride (0.9 % Sodium Chloride Flush 3 Ml Syringe) 3 ml IVFLUSH QSHIFT [facility] Last Admin: 11/02/24 08:02 Dose: 3 ml Topiramate (Topiramate 25 Mg Tablet) 25 mg PO BID [facility] Last Admin: 11/02/24 10:03 Dose: 25 mg Allergies Allergies Allergy/AdvReac Type Severity Reaction Status Date / Time doxycycline Allergy Severe Swelling Verified 10/30/24 01:41 varenicline [From CHANTIX] Allergy Severe ANAPHYLAXIS Verified 10/30/24 01:41 azithromycin Allergy Intermediate Rash Verified 10/30/24 01:41 barium sulfate Allergy Intermediate angioedema Verified 10/30/24 01:41 cetirizine Allergy Mild Rash Verified 10/30/24 01:41 famotidine Allergy Mild Rash Verified 10/30/24 01:41 linaclotide [Linzess] Allergy Mild Rash Verified 10/30/24 01:41 Assessment & Plan Assessment & Plan (1) BAHMAN (generalized anxiety disorder): Status: Acute Code(s): F41.1 - Generalized anxiety disorder Plan Ms. Scott is a 54 year-old woman recently admitted due to acute on chronic respiratory failure. Pt reports feeling anxious most of the time. She is also observed SOB. Evaluation limited by current medical condition and exacerbation of respiratory condition. Psychiatry can see pt again once more medically stable and on med floor. For now can use low dose benzo either clonazepam 0.5mg po BID. For more acute exacerbation can either use low dose olanzapine 5mg q6h prn agitation. continue sertraline 150mg po daily. Also continue topamax. Total time managing care of this patient today ____ minutes.
--- NOTE | 2024-11-02 14:25 | MHC.CM.PN ---
Pt continues care in ICU: on CPAP intermittently: very anxious and requiring frequent reassurances on respiratory ability. Discussed pt w/community navigation RN: pt having difficulty obtaining meds in the community d/t lack of transportation resulting in frequent admissions. [facility] has changed pt's pharmacy to facility meds on d/c: referred to [facility] for pulmonary rehab should pt: 1. decide to go 2. obtains payor auth. CM to follow.
[2024-11-02 16:58] LABS: Glucose, Whole Blood 53 mg/dL (60-115)
[2024-11-02 17:00] LABS: Glucose, Whole Blood 56 mg/dL (60-115)
[2024-11-02] MEDS: Dextrose 50 % 25 GM/50 ML SYRINGE IVPUSH (17:00)
[2024-11-02] MEDS: OLANZapine 5 MG TABLET PO ×2 (17:10→23:53)
[2024-11-02 17:42] LABS: Glucose, Whole Blood 186 mg/dL (60-115)
--- NOTE | 2024-11-02 17:44 | PC.NURSE ---
Assumed care at 0700- pt. on bipap and precedex gtt, spontaneously arousable, anxious but redirectable. Bipap removed by RT at approx 0730, Pt. on 2L NC. RR 18-26, O2 sats >90%, Pt. stating I can't breathe, my lungs are closing . Pt. requiring frequent verbal reassurance by this RN and RT. Precedex gtt weaned off per MD- see MAR. Pt. with increasing anxiety and WOB, SR on tele HR 100s-130s, MD notified-10 mg IM zyprpexa given per AUG with good effect- Pt. placed on CPAP 5 @28% by RT for nap. At approx. 1600 pt. placed back on NC by RT. Pt. again c/o SOB and with increased anxiety- PRN zyprexa given per AUG. Pt. with little appetite, eating <25% of meals. Evening POC 53. Recheck 56. notiifed- amp D50 given per AUG. Repeat POC 186. Ni removed at 1000- DTV by 1600. At 1600 with no spontaneous void- bladder scan 410cc. Pt. straight cathed at 1700 for 425 cc dark yellow urine- MD aware. Q2 oral care and repositioning performed. Family updated via telephone. Plan of care ongoing.
[2024-11-02] MEDS: clonazePAM 0.5 MG TABLET PO (19:36)
[2024-11-02 20:36] LABS: Glucose, Whole Blood 77 mg/dL (60-115)
[2024-11-02] MEDS: Morphine Sulfate 2 MG/ML CARTRIDGE IVPUSH (21:20)
[2024-11-03] VITALS (31 sets, daily range): BP systolic 96–148; BP diastolic 48–84; PULSE 97–119; RESP 14–101; TEMP 36.1–37.4; O2SAT 88–97; BMI 27.3
[2024-11-03] MEDS: Morphine Sulfate 2 MG/ML CARTRIDGE IVPUSH ×4 (01:23→20:44)
[2024-11-03] MEDS: Ampicillin Sodium/Sulbactam Na 3 GM in 0.9 % Sodium Chloride 100 ML IV ×4 (01:26→17:45)
[2024-11-03] MEDS: Heparin Sodium,Porcine 5,000 UNIT/ML VIAL 5000 UNIT SUBCUT ×3 (01:26→16:35)
[2024-11-03 04:53] LABS: VBG Base Excess 5.3 mmol/L; VBG HCO3 29 mmol/L (22-26); VBG pCO2 43 mmHg; VBG pH 7.44 (7.32-7.43); VBG pO2 63 mmHg
[2024-11-03 04:54] LABS: Venous Blood Gas Refer to POC result
[2024-11-03 05:01] LABS: MANUAL DIFF FLAG NO
[2024-11-03 05:03] LABS: Basophils Percent Auto 0.3 % (0-2); Eosinophils Absolute Auto 0.3 X10*3/uL (0.0-0.4); Eosinophils Percent Auto 2.3 % (0-4); Hemoglobin 9.6 g/dl (12.0-16.0); Imm Gran Abs Auto 0.05 X10*3/uL (0.00-0.03); Imm Gran Pct Auto 0.4 % (0.0-0.4); Lymphocytes Absolute Auto 2.2 X10*3/uL (1.2-4.9); Lymphocytes Percent Auto 18.9 % (20-40); Mean Corpuscular HGB Conc 29.1 g/dl (31.0-35.0); Mean Corpuscular Hemoglobin 22.6 pg (27.0-33.0); Mean Corpuscular Volume 77.8 fL (80.0-98.0); Mean Platelet Volume 9.3 fL (9.4-12.3); Monocytes Absolute Auto 1.2 X10*3/uL (0.1-1.2); Neutrophils Percent Auto 68.1 % (45-73); Platelet Count 378 X10*3/uL (160-400); Red Blood Count 4.24 X10*6/uL (4.20-5.50); Red Cell Distribution Width 19.1 % (11.0-16.0); White Blood Count 11.7 X10*3/uL (4.8-10.8)
[2024-11-03 05:19] LABS: Alanine Aminotransferase 8 U/L (0-31); Albumin Level 3.5 g/dL (3.5-5.0); Anion Gap 15 (12-20); Aspartate Amino Transferase 16 U/L (5-31); Bilirubin Total 0.4 mg/dL (0.0-1.0); Blood Urea Nitrogen 12 mg/dL (9-16); Calcium 8.7 mg/dL (8.4-10.2); Carbon Dioxide 27 mmol/L (22-29); Chloride 106 mmol/L (96-108); Creatinine Clr Calc Pharmacy 81.1; Estimated Glomerular Filt Rate > 60; Glucose Random 99 mg/dL (60-115); Magnesium 1.7 mg/dL (1.6-2.6); Phosphorus 2.7 mg/dL (2.7-4.5); Sodium 145 mmol/L (135-145); Total Protein 6.1 g/dL (6.5-8.0)
[2024-11-03 05:25] LABS: Alkaline Phosphatase 57 U/L (39-117)
[2024-11-03 07:17] LABS: Glucose, Whole Blood 110 mg/dL (60-115)
[2024-11-03] MEDS: Albuterol/Iprat 2.5/0.5MG 3 ML AMPUL.NEB INHALE ×4 (07:45→19:29)
[2024-11-03] MEDS: 0.9 % Sodium Chloride Flush 3 ML SYRINGE IVFLUSH ×3 (08:54→20:48)
--- NOTE | 2024-11-03 08:55 | PM.CCPN ---
Subjective Subjective Date of Service: 11/03/24 Interval History: Used CPAP as needed for breathing support during the day yesterday which she tolerated well Critical Care Time (minutes): 35 Physical Exam Vital Signs: Vital Signs: Last Vital Signs Temp 97.2 F 11/03/24 08:00 Pulse 113 H 11/03/24 08:00 Resp 21 H 11/03/24 08:00 BP 134/76 11/03/24 08:00 Pulse Ox 90 L 11/03/24 08:00 O2 Del Method CPAP 11/03/24 08:00 O2 Flow Rate 2 11/02/24 17:54 FiO2 30 11/03/24 08:00 Oxygen Flow Rate 30 10/30/24 08:21 BMI result Body Mass Index 27.3 General: In somewhat acute distress, chronically ill appearing and tired appearing Nutritional Appearance: well nourished and overweight Eyes: appearance normal, both eyes and all related structures; Alignment and Position: alignment normal and position normal Neck: No lymphadenopathy, no thyromegaly Resp: bilateral air entry equal, occasional wheezes heard Cardio: Regular rate, regular rhythm; Heart sounds: S1 normal heart sound present and S2 normal heart sound present GI: soft, nontender, no guarding, no hepatosplenomegaly : bladder normal to inspection, bladder normal to palpation, no renal angle tenderness Skin: no rashes or lesions noted and elasticity normal Neuro: oriented to person, oriented to place, oriented to time and moves all extremities Objective Data Labs 11/03/24 04:32 11/03/24 04:32 Labs: Laboratory Results - last 24 hr 11/02/24 11/02/24 11/02/24 10:05 11:06 16:54 WBC RBC Hgb Hct MCV MCH MCHC RDW Plt Count MPV Immature Gran % (Auto) Neut % (Auto) Lymph % (Auto) [place] % (Auto) Eos % (Auto) Baso % (Auto) Lymph # (Auto) [place] # (Auto) Eos # (Auto) Baso # (Auto) Abs Immat Gran (auto) Absolute Neuts (auto) Absolute Nucleated RBC Nucleated RBC % (auto) VBG pH VBG pCO2 VBG pO2 VBG HCO3 VBG O2 Saturation VBG Base Excess Sodium Potassium Chloride Carbon Dioxide Anion Gap BUN Creatinine Estim Creat Clear Calc Estimated GFR POC Glucose 84 53 L* Random Glucose Calcium Phosphorus Magnesium Total Bilirubin AST ALT Alkaline Phosphatase Total Protein Albumin Respiratory Panel Keys See Note Adenovirus (Rapid PCR) Not Detected B.pert (TEM-PCR) Not Detected B.parapertussis DNA PCR Not Detected C. pneumoniae DNA (PCR) Not Detected Coronavirus OC43 (PCR) Not Detected Coronavirus HKU1 (PCR) Not Detected Coronavirus 229E (PCR) Not Detected Coronavirus NL63 (PCR) Not Detected Human Metapneumovir PCR Not Detected Influenza A (RT-PCR) Not Detected Influenza A (H1) PCR Not Detected Influ A () PCR Not Detected Influenza A (H3) PCR Not Detected Influenza B (RT-PCR) Not Detected M. pneumoniae (PCR) Not Detected Parainfluenza 1 (PCR) Not Detected Parainfluenza 2 (PCR) Not Detected Parainfluenza 3 (PCR) Not Detected Parainfluenza 4 (PCR) Not Detected RSV (PCR) Not Detected Entero/Rhino (PCR) Detected A SARS-CoV-2 RNA (RT-PCR) Not Detected 11/02/24 11/02/24 11/02/24 16:57 17:14 20:32 WBC RBC Hgb Hct MCV MCH MCHC RDW Plt Count MPV Immature Gran % (Auto) Neut % (Auto) Lymph % (Auto) [place] % (Auto) Eos % (Auto) Baso % (Auto) Lymph # (Auto) [place] # (Auto) Eos # (Auto) Baso # (Auto) Abs Immat Gran (auto) Absolute Neuts (auto) Absolute Nucleated RBC Nucleated RBC % (auto) VBG pH VBG pCO2 VBG pO2 VBG HCO3 VBG O2 Saturation VBG Base Excess Sodium Potassium Chloride Carbon Dioxide Anion Gap BUN Creatinine Estim Creat Clear Calc Estimated GFR POC Glucose 56 L* 186 H 77 Random Glucose Calcium Phosphorus Magnesium Total Bilirubin AST ALT Alkaline Phosphatase Total Protein Albumin Respiratory Panel Keys Adenovirus (Rapid PCR) B.pert (TEM-PCR) B.parapertussis DNA PCR C. pneumoniae DNA (PCR) Coronavirus OC43 (PCR) Coronavirus HKU1 (PCR) Coronavirus 229E (PCR) Coronavirus NL63 (PCR) Human Metapneumovir PCR Influenza A (RT-PCR) Influenza A (H1) PCR Influ A () PCR Influenza A (H3) PCR Influenza B (RT-PCR) M. pneumoniae (PCR) Parainfluenza 1 (PCR) Parainfluenza 2 (PCR) Parainfluenza 3 (PCR) Parainfluenza 4 (PCR) RSV (PCR) Entero/Rhino (PCR) SARS-CoV-2 RNA (RT-PCR) 11/03/24 11/03/24 11/03/24 04:32 04:45 07:12 WBC 11.7 H RBC 4.24 Hgb 9.6 L Hct 33.0 L MCV 77.8 L MCH 22.6 L MCHC 29.1 L RDW 19.1 H Plt Count 378 MPV 9.3 L Immature Gran % (Auto) 0.4 Neut % (Auto) 68.1 Lymph % (Auto) 18.9 L [place] % (Auto) 10.0 Eos % (Auto) 2.3 Baso % (Auto) 0.3 Lymph # (Auto) 2.2 [place] # (Auto) 1.2 Eos # (Auto) 0.3 Baso # (Auto) 0.0 Abs Immat Gran (auto) 0.05 H Absolute Neuts (auto) 8.0 Absolute Nucleated RBC 0.000 Nucleated RBC % (auto) 0.0 VBG pH 7.44 H VBG pCO2 43 VBG pO2 63 VBG HCO3 29 H VBG O2 Saturation 81.0 VBG Base Excess 5.3 Sodium 145 Potassium 3.0 L Chloride 106 Carbon Dioxide 27 Anion Gap 15 BUN 12 Creatinine 0.64 Estim Creat Clear Calc 81.1 Estimated GFR > 60 POC Glucose 110 Random Glucose 99 Calcium 8.7 Phosphorus 2.7 Magnesium 1.7 Total Bilirubin 0.4 AST 16 ALT 8 Alkaline Phosphatase 57 Total Protein 6.1 L Albumin 3.5 Respiratory Panel Keys Adenovirus (Rapid PCR) B.pert (TEM-PCR) B.parapertussis DNA PCR C. pneumoniae DNA (PCR) Coronavirus OC43 (PCR) Coronavirus HKU1 (PCR) Coronavirus 229E (PCR) Coronavirus NL63 (PCR) Human Metapneumovir PCR Influenza A (RT-PCR) Influenza A (H1) PCR Influ A (H1/) PCR Influenza A (H3) PCR Influenza B (RT-PCR) M. pneumoniae (PCR) Parainfluenza 1 (PCR) Parainfluenza 2 (PCR) Parainfluenza 3 (PCR) Parainfluenza 4 (PCR) RSV (PCR) Entero/Rhino (PCR) SARS-CoV-2 RNA (RT-PCR) Microbiology Microbiology Results: Microbiology 10/30/24 01:52 Blood - Venous Blood Culture - Preliminary No growth after 48 hours. 10/30/24 01:52 Blood - Venous Blood Culture - Preliminary No growth after 48 hours. Progress Note: A&P Assessment and plan (1) BAHMAN (generalized anxiety disorder): Status: Acute (2) CHF (congestive heart failure): Status: Acute (3) Chest discomfort: Status: Acute (4) GERD (gastroesophageal reflux disease): Status: Acute (5) Acute hypoxemic respiratory failure: Status: Acute (6) Obesity hypoventilation syndrome: Status: Acute (7) COPD with acute exacerbation: Status: Acute Plan Neuro: Anxiety disorder: UDS positive cocaine Off Precedex since yesterday On clonazepam 0.5 mg b.i.d., olanzapine 5 mg IM p.r.n. q.6 hours Psychiatry we will follow the patient once the patient is in the medical floor Respiratory: Acute on chronic hypercapnic hypoxemic respiratory failure due to COPD exacerbation; resp viral panel positive for rhino viral infection; also has HENRY on 3L/min nasal canula oxygen. intubated on 10/30/2024, Extubated on the same day afternoon Currently on CPAP support, tolerating well; BiPAP support as and if needed Duo nebs around the clock Continue ampicillin sulbactam for antibiotic coverage Diabetes mellitus: Blood sugars under control Sliding scale insulin Lines: Peripheral Prophylaxis: Heparin Quality Stroke Does the patient have a stroke diagnosis?: No VTE Prior VTE?: No VTE Risk Level:: Medical - moderate - high VTE Device Contraindication: Treatment Not Indicated VTE Drug Contraindication: N/A - Med Ordered
[2024-11-03] MEDS: methylPREDNISolone Sod Succ 40 MG/ML VIAL IVPUSH ×2 (10:21→16:35)
[2024-11-03 11:23] LABS: Glucose, Whole Blood 106 mg/dL (60-115)
[2024-11-03] MEDS: Sertraline HCL 50 MG TABLET 150 MG PO (11:53)
[2024-11-03] MEDS: Topiramate 25 MG TABLET PO ×2 (11:53→20:46)
[2024-11-03] MEDS: Potassium Chloride Packet 20 MEQ PACKET 40 MEQ PO (11:54)
[2024-11-03] MEDS: Loratadine 10 MG TABLET PO (11:55)
--- NOTE | 2024-11-03 14:04 | MHC.CM.PN ---
Pt on intermittent CPAP in ICU: Benzodiazepam is on hold d/t possible sedation. Pt from home w/sister: active cocaine abuse: ? pt transferring to pulmonary rehab - pt initially supports returning to home: referrals made to SNF in the event she decides and/or qualifies for placement. CM to follow
[2024-11-03] MEDS: OLANZapine 5 MG TABLET PO ×2 (15:26→22:08)
[2024-11-03 16:30] LABS: Glucose, Whole Blood 251 mg/dL (60-115)
[2024-11-03] MEDS: Insulin Lispro 100 UNIT/ML 3 ML VIAL SUBCUT ×2 (16:35→20:47)
[2024-11-03] MEDS: Benzonatate 100 MG CAPSULE PO (17:46)
[2024-11-03] MEDS: guaiFEN/Codeine SF 200/20/10ML 10 ML LIQUID PO (18:00)
--- NOTE | 2024-11-03 18:41 | PC.NURSE ---
Assumed care of patient 0700 Pt on CPAP 10, 30%. Lethargic in first assessment, see AUG. Pt awaoke 11:00 alert, awake, eyes open. A+Ox4. Pt able to spend most of day off CPAP with 2L NC. PO intake increasing. Consumed 75% lunch and 100% dinner. Unasyn antibiotic given per AUG. Pt passed voiding trial. Bladder scan 256 ml 11:00. Voided 2x for total of 400 ML this shift - concentrated dark yellow color.
[2024-11-03 20:45] LABS: Glucose, Whole Blood 293 mg/dL (60-115)
[2024-11-04] VITALS (28 sets, daily range): BP systolic 103–158; BP diastolic 54–81; PULSE 82–129; RESP 11–31; TEMP 36.1–37.1; O2SAT 90–99; BMI 27.5
[2024-11-04] MEDS: methylPREDNISolone Sod Succ 40 MG/ML VIAL IVPUSH ×2 (00:52→08:14)
[2024-11-04] MEDS: guaiFEN/Codeine SF 200/20/10ML 10 ML LIQUID PO ×3 (00:52→20:07)
[2024-11-04] MEDS: Heparin Sodium,Porcine 5,000 UNIT/ML VIAL 5000 UNIT SUBCUT ×3 (00:53→16:38)
[2024-11-04] MEDS: Ampicillin Sodium/Sulbactam Na 3 GM in 0.9 % Sodium Chloride 100 ML IV ×4 (00:54→18:32)
[2024-11-04] MEDS: Morphine Sulfate 2 MG/ML CARTRIDGE IVPUSH ×6 (00:56→22:52)
[2024-11-04 01:11] LABS: Glucose, Whole Blood 236 mg/dL (60-115)
[2024-11-04] MEDS: Albuterol/Iprat 2.5/0.5MG 3 ML AMPUL.NEB INHALE ×5 (01:15→20:26)
[2024-11-04 04:14] LABS: Glucose, Whole Blood 316 mg/dL (60-115)
[2024-11-04] MEDS: Insulin Lispro 100 UNIT/ML 3 ML VIAL SUBCUT ×4 (04:15→21:40)
[2024-11-04 04:28] LABS: VBG HCO3 26 mmol/L (22-26); VBG pCO2 36 mmHg; VBG pH 7.46 (7.32-7.43); VBG pO2 67 mmHg
[2024-11-04 04:59] LABS: Basophils Percent Auto 0.1 % (0-2); Hematocrit 31.4 % (37.0-47.0); Hemoglobin 9.2 g/dl (12.0-16.0); Imm Gran Abs Auto 0.04 X10*3/uL (0.00-0.03); Imm Gran Pct Auto 0.4 % (0.0-0.4); Lymphocytes Absolute Auto 0.5 X10*3/uL (1.2-4.9); Lymphocytes Percent Auto 4.8 % (20-40); MANUAL DIFF FLAG SCAN; Mean Corpuscular HGB Conc 29.3 g/dl (31.0-35.0); Mean Corpuscular Hemoglobin 22.8 pg (27.0-33.0); Mean Corpuscular Volume 77.7 fL (80.0-98.0); Mean Platelet Volume 9.6 fL (9.4-12.3); Monocytes Absolute Auto 0.3 X10*3/uL (0.1-1.2); Monocytes Percent Auto 2.6 % (2-11); Neutrophils Absolute Auto 9.5 x10*3/uL (2.0-8.3); Neutrophils Percent Auto 92.1 % (45-73); Platelet Count 384 X10*3/uL (160-400); Red Blood Count 4.04 X10*6/uL (4.20-5.50); Red Cell Distribution Width 18.7 % (11.0-16.0); SCAN SMEAR FLAG 1; White Blood Count 10.3 X10*3/uL (4.8-10.8)
[2024-11-04 05:18] LABS: Venous Blood Gas Refer to POC result
[2024-11-04 05:24] LABS: SLIDE REVIEW VERIFIED
[2024-11-04 05:26] LABS: Alanine Aminotransferase 7 U/L (0-31); Albumin Level 3.6 g/dL (3.5-5.0); Alkaline Phosphatase 69 U/L (39-117); Anion Gap 15 (12-20); Aspartate Amino Transferase 15 U/L (5-31); Bilirubin Total 0.2 mg/dL (0.0-1.0); Blood Urea Nitrogen 23 mg/dL (9-16); Calcium 9.1 mg/dL (8.4-10.2); Carbon Dioxide 26 mmol/L (22-29); Chloride 100 mmol/L (96-108); Creatinine Clr Calc Pharmacy 72.5; Estimated Glomerular Filt Rate > 60; Glucose Random 338 mg/dL (60-115); Magnesium 1.8 mg/dL (1.6-2.6); Phosphorus 3.5 mg/dL (2.7-4.5); Sodium 137 mmol/L (135-145); Total Protein 6.3 g/dL (6.5-8.0)
[2024-11-04 07:41] LABS: Glucose, Whole Blood 148 mg/dL (60-115)
[2024-11-04] MEDS: Sertraline HCL 50 MG TABLET 150 MG PO (08:14)
[2024-11-04] MEDS: Loratadine 10 MG TABLET PO (08:14)
[2024-11-04] MEDS: Topiramate 25 MG TABLET PO ×2 (08:14→20:07)
[2024-11-04] MEDS: 0.9 % Sodium Chloride Flush 3 ML SYRINGE IVFLUSH ×3 (08:15→20:07)
[2024-11-04] MEDS: OLANZapine 5 MG TABLET PO ×2 (08:16→17:19)
--- NOTE | 2024-11-04 08:47 | P.PNCC_ITS ---
Subjective Subjective Date of Service: 11/04/24 Interval History: States she feels much better this morning On CPAP support last night to help with sleep Critical Care Time (minutes): 35 Physical Exam 2 Vital Signs: Vital Signs: Last Vital Signs Temp 98.5 F 11/04/24 08:00 Pulse 97 11/04/24 08:00 Resp 18 11/04/24 08:00 BP 129/58 L 11/04/24 08:00 Pulse Ox 90 L 11/04/24 08:00 O2 Del Method Nasal Cannula 11/04/24 08:00 O2 Flow Rate 2 11/04/24 08:00 FiO2 30 11/04/24 02:00 Oxygen Flow Rate 30 10/30/24 08:21 BMI result Body Mass Index 27.5 General: Calm and pleasant lady sitting in the bed eating breakfast in no distress Nutritional Appearance: well nourished and looks overweight Eyes: appearance normal, both eyes and all related structures; Alignment and Position: alignment normal and position normal Neck: No lymphadenopathy, no thyromegaly Resp: bilateral air entry equal, wheezes have significantly improved Cardio: Regular rate, regular rhythm; Heart sounds: S1 normal heart sound present and S2 normal heart sound present GI: soft, nontender, no guarding, no hepatosplenomegaly : bladder normal to inspection, bladder normal to palpation, no renal angle tenderness Skin: no rashes or lesions noted and elasticity normal Neuro: oriented to person, oriented to place, oriented to time and moves all extremities Objective Data Labs 11/04/24 04:18 11/04/24 04:18 Labs: Laboratory Results - last 24 hr 11/03/24 11/03/24 11/03/24 11:19 16:26 20:42 WBC RBC Hgb Hct MCV MCH MCHC RDW Plt Count MPV Immature Gran % (Auto) Neut % (Auto) Lymph % (Auto) [place] % (Auto) Eos % (Auto) Baso % (Auto) Lymph # (Auto) [place] # (Auto) Eos # (Auto) Baso # (Auto) Abs Immat Gran (auto) Absolute Neuts (auto) Absolute Nucleated RBC Nucleated RBC % (auto) Smear Tech's Comments VBG pH VBG pCO2 VBG pO2 VBG HCO3 VBG O2 Saturation VBG Base Excess Sodium Potassium Chloride Carbon Dioxide Anion Gap BUN Creatinine Estim Creat Clear Calc Estimated GFR POC Glucose 106 251 H 293 H Random Glucose Calcium Phosphorus Magnesium Total Bilirubin AST ALT Alkaline Phosphatase Total Protein Albumin 11/04/24 11/04/24 11/04/24 01:06 04:07 04:18 WBC 10.3 RBC 4.04 L Hgb 9.2 L Hct 31.4 L MCV 77.7 L MCH 22.8 L MCHC 29.3 L RDW 18.7 H Plt Count 384 MPV 9.6 Immature Gran % (Auto) 0.4 Neut % (Auto) 92.1 H Lymph % (Auto) 4.8 L [place] % (Auto) 2.6 Eos % (Auto) 0.0 Baso % (Auto) 0.1 Lymph # (Auto) 0.5 L [place] # (Auto) 0.3 Eos # (Auto) 0.0 Baso # (Auto) 0.0 Abs Immat Gran (auto) 0.04 H Absolute Neuts (auto) 9.5 H Absolute Nucleated RBC 0.000 Nucleated RBC % (auto) 0.0 Smear Tech's Comments VERIFIED VBG pH VBG pCO2 VBG pO2 VBG HCO3 VBG O2 Saturation VBG Base Excess Sodium 137 Potassium 4.0 D Chloride 100 Carbon Dioxide 26 Anion Gap 15 BUN 23 H Creatinine 0.72 Estim Creat Clear Calc 72.5 Estimated GFR > 60 POC Glucose 236 H 316 H Random Glucose 338 H Calcium 9.1 Phosphorus 3.5 Magnesium 1.8 Total Bilirubin 0.2 AST 15 ALT 7 Alkaline Phosphatase 69 Total Protein 6.3 L Albumin 3.6 11/04/24 11/04/24 04:23 07:37 WBC RBC Hgb Hct MCV MCH MCHC RDW Plt Count MPV Immature Gran % (Auto) Neut % (Auto) Lymph % (Auto) [place] % (Auto) Eos % (Auto) Baso % (Auto) Lymph # (Auto) [place] # (Auto) Eos # (Auto) Baso # (Auto) Abs Immat Gran (auto) Absolute Neuts (auto) Absolute Nucleated RBC Nucleated RBC % (auto) Smear Tech's Comments VBG pH 7.46 H VBG pCO2 36 VBG pO2 67 VBG HCO3 26 VBG O2 Saturation 90.0 VBG Base Excess 3.0 Sodium Potassium Chloride Carbon Dioxide Anion Gap BUN Creatinine Estim Creat Clear Calc Estimated GFR POC Glucose 148 H Random Glucose Calcium Phosphorus Magnesium Total Bilirubin AST ALT Alkaline Phosphatase Total Protein Albumin Microbiology Microbiology Results: Microbiology 10/30/24 01:52 Blood - Venous Blood Culture - Final No growth after 5 days. 10/30/24 01:52 Blood - Venous Blood Culture - Final No growth after 5 days. Progress Note: A&P Assessment and plan (1) BAHMAN (generalized anxiety disorder): Status: Acute (2) Cocaine use disorder: Status: Acute (3) CHF (congestive heart failure): Status: Acute (4) Acute hypoxemic respiratory failure: Status: Acute (5) Acute exacerbation of chronic obstructive pulmonary disease: Status: Acute (6) Acute bronchospasm: Status: Acute Plan Neuro: Anxiety disorder: UDS positive cocaine She is very calm and pleasant this morning Clonazepam stopped yesterday as it was making her very drowsy, continue olanzapine 5 mg IM p.r.n. q.6 hours Psychiatry we will follow the patient once the patient is in the medical floor Respiratory: Acute on chronic hypercapnic hypoxemic respiratory failure due to COPD exacerbation; resp viral panel positive for rhino viral infection; also has HENRY on 3L/min nasal canula oxygen. intubated on 10/30/2024, Extubated on the same day afternoon Needed CPAP overnight but no BiPAP during the day yesterday or day before yesterday Duo nebs around the clock Continue ampicillin sulbactam for antibiotic coverage Diabetes mellitus: Blood sugars under control Sliding scale insulin Lines: Peripheral Prophylaxis: Heparin will transfer the patient to floor as she has improved significantly better Quality Stroke Does the patient have a stroke diagnosis?: No VTE Prior VTE?: No VTE Risk Level:: Medical - moderate - high VTE Device Contraindication: Treatment Not Indicated VTE Drug Contraindication: N/A - Med Ordered
[2024-11-04 11:10] LABS: Glucose, Whole Blood 322 mg/dL (60-115)
[2024-11-04 16:17] LABS: Glucose, Whole Blood 218 mg/dL (60-115)
[2024-11-04 21:10] LABS: Glucose, Whole Blood 165 mg/dL (60-115)
[2024-11-04] MEDS: Gabapentin 400 MG CAPSULE 800 MG PO (21:39)
[2024-11-04] MEDS: Calcium Carbonate 750 MG TAB.CHEW PO (22:52)
[2024-11-05] VITALS (13 sets, daily range): BP systolic 108–155; BP diastolic 51–78; PULSE 54–105; RESP 13–22; TEMP 36.2–36.4; O2SAT 92–96; BMI 33.8
[2024-11-05] MEDS: Ampicillin Sodium/Sulbactam Na 3 GM in 0.9 % Sodium Chloride 100 ML IV ×2 (00:49→06:41)
[2024-11-05] MEDS: Heparin Sodium,Porcine 5,000 UNIT/ML VIAL 5000 UNIT SUBCUT ×3 (00:49→17:27)
[2024-11-05] MEDS: Albuterol/Iprat 2.5/0.5MG 3 ML AMPUL.NEB INHALE ×3 (07:12→19:49)
[2024-11-05 07:18] LABS: Glucose, Whole Blood 102 mg/dL (60-115)
--- NOTE | 2024-11-05 08:36 | HO.ADDICT_ITS ---
History of Present Illness Date of Service: 11/05/2024 Chief Complaint: Respiratory failure Reason for Consult: cocaine use Sources of Information: patient interviewed and chart reviewed HPI Narrative: Patient is a 54 year old female with history of CHF, cocaine use disorder, and DM medicallya dmitted with acute resp failure. Patient well known to this promotion writer and [facility] via previous admissions Patient seen in room 486. She is awake, somewhat groggy as she she just woke up. She reports that she continues to smoke crack cocaine, but is using less. When asked if she has been taking topomax for cocaine cravings, she seemed to not know what I was referring to, but she said yes she has been taking it. When asked if she wished to follow up with [facility] or any other provider for support with cocaine use, she declined. Patient is aware that cocaine use is exacerbating many of her underlying chronic conditions, however in the past has stated that she has been using cocaine since she was a teenager. She has been agreeable to try and cut down, which is how she was started on topomax Medical Evaluation Reviewed: Yes Review of Systems Constitutional: Reports as per HPI and Reports malaise Gastrointestinal: Denies loose stools and Denies nausea Psychiatric: Reports anxiety Diagnostics Vital Signs (24Hr): Vital Signs - 24 hr 11/04/24 09:00 11/04/24 10:00 11/04/24 11:00 Temperature Pulse Rate 103 H 101 H 120 H Respiratory Rate 18 18 18 Blood Pressure 131/64 103/63 114/54 L Pulse Oximetry 90 L 92 92 Oxygen Delivery Method Nasal Cannula Nasal Cannula Nasal Cannula Oxygen Flow Rate 2 2 2 Fraction of Inspired Oxygen 11/04/24 11:26 11/04/24 12:00 11/04/24 13:00 Temperature 97.4 F Pulse Rate 97 114 H 106 H Respiratory Rate 18 20 16 Blood Pressure 158/72 H 142/64 H Pulse Oximetry 92 93 Oxygen Delivery Method Nasal Cannula Oxygen Flow Rate 2 Fraction of Inspired Oxygen 11/04/24 14:00 11/04/24 14:56 11/04/24 15:53 Temperature Pulse Rate 129 H 98 96 Respiratory Rate 20 17 12 Blood Pressure 136/72 123/75 Pulse Oximetry 98 93 Oxygen Delivery Method CPAP Oxygen Flow Rate Fraction of Inspired Oxygen 30 11/04/24 15:59 11/04/24 16:00 11/04/24 17:59 Temperature 97.6 F 98.8 F Pulse Rate 90 98 Respiratory Rate 11 L 11 L 18 Blood Pressure 138/68 135/77 Pulse Oximetry 99 93 Oxygen Delivery Method CPAP Nasal Cannula Oxygen Flow Rate 2 Fraction of Inspired Oxygen 30 11/04/24 19:34 11/04/24 20:26 11/04/24 23:27 Temperature 98.0 F Pulse Rate 89 98 Respiratory Rate 17 16 13 Blood Pressure 149/65 H Pulse Oximetry 93 Oxygen Delivery Method Nasal Cannula Oxygen Flow Rate 1 Fraction of Inspired Oxygen 11/05/24 00:00 11/05/24 04:00 11/05/24 04:47 Temperature 97.5 F 97.6 F Pulse Rate 105 H 55 Respiratory Rate 17 17 13 Blood Pressure 136/65 130/78 Pulse Oximetry 96 96 Oxygen Delivery Method BiPAP BiPAP Oxygen Flow Rate Fraction of Inspired Oxygen 11/05/24 07:15 11/05/24 07:16 11/05/24 08:00 Temperature 97.2 F Pulse Rate 101 H 104 H Respiratory Rate 22 H 22 H 20 Blood Pressure 155/77 H Pulse Oximetry 94 Oxygen Delivery Method BiPAP Oxygen Flow Rate Fraction of Inspired Oxygen 28 BMI result Body Mass Index 33.8 Labs 11/04/24 04:18 11/04/24 04:18 Labs: Laboratory Results - last 48 hr 11/03/24 11/03/24 11/03/24 11:19 16:26 20:42 WBC RBC Hgb Hct MCV MCH MCHC RDW Plt Count MPV Immature Gran % (Auto) Neut % (Auto) Lymph % (Auto) [place] % (Auto) Eos % (Auto) Baso % (Auto) Lymph # (Auto) [place] # (Auto) Eos # (Auto) Baso # (Auto) Abs Immat Gran (auto) Absolute Neuts (auto) Absolute Nucleated RBC Nucleated RBC % (auto) Smear Tech's Comments VBG pH VBG pCO2 VBG pO2 VBG HCO3 VBG O2 Saturation VBG Base Excess Sodium Potassium Chloride Carbon Dioxide Anion Gap BUN Creatinine Estim Creat Clear Calc Estimated GFR POC Glucose 106 251 H 293 H Random Glucose Calcium Phosphorus Magnesium Total Bilirubin AST ALT Alkaline Phosphatase Total Protein Albumin 11/04/24 11/04/24 11/04/24 01:06 04:07 04:18 WBC 10.3 RBC 4.04 L Hgb 9.2 L Hct 31.4 L MCV 77.7 L MCH 22.8 L MCHC 29.3 L RDW 18.7 H Plt Count 384 MPV 9.6 Immature Gran % (Auto) 0.4 Neut % (Auto) 92.1 H Lymph % (Auto) 4.8 L [place] % (Auto) 2.6 Eos % (Auto) 0.0 Baso % (Auto) 0.1 Lymph # (Auto) 0.5 L [place] # (Auto) 0.3 Eos # (Auto) 0.0 Baso # (Auto) 0.0 Abs Immat Gran (auto) 0.04 H Absolute Neuts (auto) 9.5 H Absolute Nucleated RBC 0.000 Nucleated RBC % (auto) 0.0 Smear Tech's Comments VERIFIED VBG pH VBG pCO2 VBG pO2 VBG HCO3 VBG O2 Saturation VBG Base Excess Sodium 137 Potassium 4.0 D Chloride 100 Carbon Dioxide 26 Anion Gap 15 BUN 23 H Creatinine 0.72 Estim Creat Clear Calc 72.5 Estimated GFR > 60 POC Glucose 236 H 316 H Random Glucose 338 H Calcium 9.1 Phosphorus 3.5 Magnesium 1.8 Total Bilirubin 0.2 AST 15 ALT 7 Alkaline Phosphatase 69 Total Protein 6.3 L Albumin 3.6 11/04/24 11/04/24 11/04/24 04:23 07:37 11:07 WBC RBC Hgb Hct MCV MCH MCHC RDW Plt Count MPV Immature Gran % (Auto) Neut % (Auto) Lymph % (Auto) [place] % (Auto) Eos % (Auto) Baso % (Auto) Lymph # (Auto) [place] # (Auto) Eos # (Auto) Baso # (Auto) Abs Immat Gran (auto) Absolute Neuts (auto) Absolute Nucleated RBC Nucleated RBC % (auto) Smear Tech's Comments VBG pH 7.46 H VBG pCO2 36 VBG pO2 67 VBG HCO3 26 VBG O2 Saturation 90.0 VBG Base Excess 3.0 Sodium Potassium Chloride Carbon Dioxide Anion Gap BUN Creatinine Estim Creat Clear Calc Estimated GFR POC Glucose 148 H 322 H Random Glucose Calcium Phosphorus Magnesium Total Bilirubin AST ALT Alkaline Phosphatase Total Protein Albumin 11/04/24 11/04/24 11/05/24 16:14 21:06 07:13 WBC RBC Hgb Hct MCV MCH MCHC RDW Plt Count MPV Immature Gran % (Auto) Neut % (Auto) Lymph % (Auto) [place] % (Auto) Eos % (Auto) Baso % (Auto) Lymph # (Auto) [place] # (Auto) Eos # (Auto) Baso # (Auto) Abs Immat Gran (auto) Absolute Neuts (auto) Absolute Nucleated RBC Nucleated RBC % (auto) Smear Tech's Comments VBG pH VBG pCO2 VBG pO2 VBG HCO3 VBG O2 Saturation VBG Base Excess Sodium Potassium Chloride Carbon Dioxide Anion Gap BUN Creatinine Estim Creat Clear Calc Estimated GFR POC Glucose 218 H 165 H 102 Random Glucose Calcium Phosphorus Magnesium Total Bilirubin AST ALT Alkaline Phosphatase Total Protein Albumin Mental Status Exam Mental Status Exam Patient Appearance: Appropriate Level of Consciousness: Awake and Appropriate Patient Behavior: Appropriate and Guarded Affect Description: Calm Speech Pattern: Clear Hallucinations: None Thought Content: positive for Intact Judgement: Fair Medications Medications Current Medications Albuterol/Ipratropium (Albuterol/Iprat 2.5/0.5mg 3 Ml Ampul.Neb) 3 ml INHALE RQ4H WHILE AWAKE [facility] [place] Last Admin: 11/05/24 07:12 Dose: 3 ml Aspirin (Aspirin Enteric Coated 81 Mg Tablet.Dr) 81 mg PO DAILY [facility] [place] Atorvastatin Calcium (Atorvastatin Calcium 40 Mg Tablet) 40 mg PO BEDTIME [facility] [place] Benzonatate (Benzonatate 100 Mg Capsule) 100 mg PO TID PRN PRN Reason: Cough Last Admin: 11/03/24 17:46 Dose: 100 mg Furosemide (Furosemide 20 Mg Tablet) 20 mg PO DAILY [facility] [place]; Protocol Gabapentin (Gabapentin 400 Mg Capsule) 800 mg PO QID [facility] [place] Guaifenesin/Codeine Phosphate (Guaifen/Codeine Sf 200/20/10ml 10 Ml Liquid) 10 ml PO Q4H PRN PRN Reason: Cough Last Admin: 11/04/24 20:07 Dose: 10 ml Heparin Sodium (Porcine) (Heparin Sodium,Porcine 5,000 Unit/Ml Vial) 5,000 unit SUBCUT Q8H [facility] [place] Last Admin: 11/05/24 00:49 Dose: 5,000 unit Ampicillin Sodium/Sulbactam (Sodium 3 gm/ Sodium Chloride) 100 mls @ 200 mls/hr IV Q6H [facility] [place] Last Admin: 11/05/24 06:41 Dose: 200 mls/hr Insulin Human Lispro (Insulin Lispro 100 Unit/Ml 3 Ml Vial) 0 unit SUBCUT QIDACHS [facility] [place]; Protocol Last Admin: 11/04/24 21:40 Dose: 2 unit Loratadine (Loratadine 10 Mg Tablet) 10 mg PO DAILY [facility] [place] Last Admin: 11/04/24 08:14 Dose: 10 mg Losartan Potassium (Losartan Potassium 50 Mg Tablet) 50 mg PO DAILY [facility] [place]; Protocol Morphine Sulfate (Morphine Sulfate 2 Mg/Ml Cartridge) 2 mg IVPUSH Q4H PRN; Protocol PRN Reason: distress Last Admin: 11/04/24 22:52 Dose: 2 mg Naloxone HCl (Naloxone Hcl 0.4 Mg/Ml Vial) 0.2 mg IVPUSH Q2M PRN PRN Reason: Excessive sedation or RR < 8 Olanzapine (Olanzapine 5 Mg Tablet) 5 mg PO Q6H PRN PRN Reason: agitation Last Admin: 11/04/24 17:19 Dose: 5 mg Prednisone (Prednisone 20 Mg Tablet) 40 mg PO DAILY [facility] [place] Sertraline HCl (Sertraline Hcl 50 Mg Tablet) 150 mg PO DAILY [facility] [place] Last Admin: 11/04/24 08:14 Dose: 150 mg Sertraline HCl (Sertraline Hcl 50 Mg Tablet) 150 mg PO DAILY [facility] [place] Sodium Chloride (0.9 % Sodium Chloride Flush 3 Ml Syringe) 3 ml IVFLUSH QSHIFT [facility] [place] Last Admin: 11/04/24 20:07 Dose: 3 ml Theophylline (Theophylline Anhydrous Er 400 Mg Tab.Er.24h) 400 mg PO BID [facility] [place] Tizanidine HCl (Tizanidine Hcl 4 Mg Tablet) 4 mg PO BID [facility] [place] Topiramate (Topiramate 25 Mg Tablet) 25 mg PO BID [facility] [place] Last Admin: 11/04/24 20:07 Dose: 25 mg Allergies Allergies Allergy/AdvReac Type Severity Reaction Status Date / Time doxycycline Allergy Severe Swelling Verified 10/30/24 01:41 varenicline [From CHANTIX] Allergy Severe ANAPHYLAXIS Verified 10/30/24 01:41 azithromycin Allergy Intermediate Rash Verified 10/30/24 01:41 barium sulfate Allergy Intermediate angioedema Verified 10/30/24 01:41 cetirizine Allergy Mild Rash Verified 10/30/24 01:41 famotidine Allergy Mild Rash Verified 10/30/24 01:41 linaclotide [Linzess] Allergy Mild Rash Verified 10/30/24 01:41 Assessment & Plan Assessment & Plan (1) Cocaine use disorder: Status: Acute Code(s): F14.10 - Cocaine abuse, uncomplicated Assessment and Plan: * declines referral or follow up appt for cocaine use * agreeable to continuing topomax --unclear if she is taking it at home, but has been receiving it here, will send refill to her outpatient pharmacy * Please reconsult if needed Total time managing care of this patient today ___25_ minutes. [facility] Past Medical History Medical History Cocaine use disorder Cocaine abuse GERD (gastroesophageal reflux disease) Constipation Non-insulin dependent type 2 diabetes mellitus HENRY (obstructive sleep apnea) Acute exacerbation of chronic obstructive airways disease Asthma with exacerbation Obesity hypoventilation syndrome COPD (chronic obstructive pulmonary disease) Chronic lung disease Hypoxic respiratory failure Nocturnal hypoxemia Diabetes mellitus COPD exacerbation Crack cocaine use Hyperkalemia Metabolic acidosis Leukocytosis Chest discomfort Chronic renal failure, stage 2 (mild) SOB (shortness of breath) Asthma Smoker Rotator cuff tendonitis GERD (gastroesophageal reflux disease) Chronic idiopathic constipation Bustos's esophagus Depression High triglycerides Gastroparesis Carpal tunnel syndrome of right wrist Nausea & vomiting Hernia Acute and chronic respiratory failure, unspecified whether with hypoxia or hypercapnia HTN (hypertension) Obesity (BMI 30-39.9) Knee pain, bilateral Family History Family History Father Heart disease HENRY (obstructive sleep apnea) Family history of breast cancer Mother Asthma Emphysema, unspecified Bronchitis Smoker Alcoholism Bone marrow disease Maternal Grandmother Diabetes Surgical History Surgical History History of cholecystectomy (~1988) History of carpal tunnel release Hx of tubal ligation History of pubovaginal sling (~2015) History of umbilical hernia repair (~2001) Hx of section History of open reduction and internal fixation (ORIF) procedure History of esophagogastroduodenoscopy (EGD) Social History Social History Household Members: Unknown / Unable to assess Household Members Other:: sister Housing: Unknown / Unable to assess Are you a primary healthcare consulting manager to a significant other at home: No Unable to assess alcohol history related to: Unknown Alcohol intake: unknown Comment: Sleeping Patient Tobacco Use Status: Current everyday Tobacco user Tobacco use type: Cigarette Cigarette Packs Per Day: 0.5 Cigarettes Per Day: 10.0 Years Smoked: 40? 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
[2024-11-05] MEDS: Furosemide 20 MG TABLET PO (09:02)
[2024-11-05] MEDS: TiZANidine HCL 4 MG TABLET PO ×2 (09:02→20:57)
[2024-11-05] MEDS: Topiramate 25 MG TABLET PO ×2 (09:02→20:57)
[2024-11-05] MEDS: Gabapentin 400 MG CAPSULE 800 MG PO ×4 (09:04→20:57)
[2024-11-05] MEDS: Aspirin Enteric Coated 81 MG TABLET.DR PO (09:04)
[2024-11-05] MEDS: predniSONE 20 MG TABLET 40 MG PO (09:04)
[2024-11-05] MEDS: Theophylline Anhydrous ER 400 MG TAB.ER.24H PO ×2 (09:04→20:57)
[2024-11-05] MEDS: Sertraline HCL 50 MG TABLET 150 MG PO (09:04)
[2024-11-05] MEDS: Loratadine 10 MG TABLET PO (09:04)
[2024-11-05] MEDS: Losartan Potassium 50 MG TABLET PO (09:05)
[2024-11-05] MEDS: 0.9 % Sodium Chloride Flush 3 ML SYRINGE IVFLUSH ×3 (09:05→20:58)
[2024-11-05] MEDS: Morphine Sulfate 2 MG/ML CARTRIDGE IVPUSH ×3 (09:17→21:03)
[2024-11-05] MEDS: OLANZapine 5 MG TABLET PO ×2 (09:17→14:43)
[2024-11-05] MEDS: Benzonatate 100 MG CAPSULE PO ×2 (09:29→17:27)
[2024-11-05] MEDS: guaiFEN/Codeine SF 200/20/10ML 10 ML LIQUID PO ×2 (09:30→17:27)
--- NOTE | 2024-11-05 10:14 | HO.PM.IMPN ---
Subjective Subjective Date of Service: 11/05/24 Interval History: sob Physical Exam Vital Signs: Vital Signs: Last Vital Signs Temp 97.2 F 11/05/24 08:00 Pulse 104 H 11/05/24 08:00 Resp 20 11/05/24 08:00 BP 155/77 H 11/05/24 08:00 Pulse Ox 94 11/05/24 08:00 O2 Del Method BiPAP 11/05/24 08:00 O2 Flow Rate 1 11/04/24 19:34 FiO2 28 11/05/24 08:00 Oxygen Flow Rate 30 10/30/24 08:21 BMI result Body Mass Index 33.8 General: AO X 3, short of breath, tachypneic Resp: Diminished bilateral, accessory muscles used CVS: S1,S2,RRR GI: soft, non tender, non distended Neuro: motor grossly intact, alert Psych: appropriate affect, appropriate insight Objective Data Active Medications Albuterol/Ipratropium (Albuterol/Iprat 2.5/0.5mg 3 Ml Ampul.Neb) 3 ml INHALE RQ4H WHILE AWAKE [facility] Last Admin: 11/05/24 07:12 Dose: 3 ml Documented By: MANPREET Aspirin (Aspirin Enteric Coated 81 Mg Tablet.) 81 mg PO DAILY [facility] Last Admin: 11/05/24 09:04 Dose: 81 mg Documented By: ANTONETTE Atorvastatin Calcium (Atorvastatin Calcium 40 Mg Tablet) 40 mg PO BEDTIME [facility] Benzonatate (Benzonatate 100 Mg Capsule) 100 mg PO TID PRN PRN Reason: Cough Last Admin: 11/05/24 09:29 Dose: 100 mg Documented By: ANTONETTE Furosemide (Furosemide 20 Mg Tablet) 20 mg PO DAILY [facility]; Protocol Last Admin: 11/05/24 09:02 Dose: 20 mg Documented By: ANTONETTE Gabapentin (Gabapentin 400 Mg Capsule) 800 mg PO QID [facility] Last Admin: 11/05/24 09:04 Dose: 800 mg Documented By: ANTONETTE Guaifenesin/Codeine Phosphate (Guaifen/Codeine Sf 200/20/10ml 10 Ml Liquid) 10 ml PO Q4H PRN PRN Reason: Cough Last Admin: 11/05/24 09:30 Dose: 10 ml Documented By: ANTONETTE Heparin Sodium (Porcine) (Heparin Sodium,Porcine 5,000 Unit/Ml Vial) 5,000 unit SUBCUT Q8H [facility] Last Admin: 11/05/24 09:02 Dose: 5,000 unit Documented By: ANTONETTE Ampicillin Sodium/Sulbactam (Sodium 3 gm/ Sodium Chloride) 100 mls @ 200 mls/hr IV Q6H [facility] Last Infusion: 11/05/24 07:15 Dose: Infused Documented By: ANTONETTE Insulin Human Lispro (Insulin Lispro 100 Unit/Ml 3 Ml Vial) 0 unit SUBCUT QIDACHS [facility]; Protocol Last Admin: 11/05/24 09:05 Dose: Not Given Documented By: ANTONETTE Non-Admin Reason: No Insulin Coverage Loratadine (Loratadine 10 Mg Tablet) 10 mg PO DAILY [facility] Last Admin: 11/05/24 09:04 Dose: 10 mg Documented By: ANTONETTE Losartan Potassium (Losartan Potassium 50 Mg Tablet) 50 mg PO DAILY [facility]; Protocol Last Admin: 11/05/24 09:05 Dose: 50 mg Documented By: ANTONETTE Morphine Sulfate (Morphine Sulfate 2 Mg/Ml Cartridge) 2 mg IVPUSH Q4H PRN; Protocol PRN Reason: distress Last Admin: 11/05/24 09:17 Dose: 2 mg Documented By: ANTONETTE Comments: for work of breathing and pain Naloxone HCl (Naloxone Hcl 0.4 Mg/Ml Vial) 0.2 mg IVPUSH Q2M PRN PRN Reason: Excessive sedation or RR < 8 Olanzapine (Olanzapine 5 Mg Tablet) 5 mg PO Q6H PRN PRN Reason: agitation Last Admin: 11/05/24 09:17 Dose: 5 mg Documented By: ANTONETTE Prednisone (Prednisone 20 Mg Tablet) 40 mg PO DAILY [facility] Last Admin: 11/05/24 09:04 Dose: 40 mg Documented By: ANTONETTE Sertraline HCl (Sertraline Hcl 50 Mg Tablet) 150 mg PO DAILY [facility] Last Admin: 11/05/24 09:31 Dose: Not Given Documented By: ANTONETTE Non-Admin Reason: Medication Discontinued Sodium Chloride (0.9 % Sodium Chloride Flush 3 Ml Syringe) 3 ml IVFLUSH QSHIFT [facility] Last Admin: 11/05/24 09:05 Dose: 3 ml Documented By: ANTONETTE Theophylline (Theophylline Anhydrous Er 400 Mg Tab.Er.24h) 400 mg PO BID [facility] Last Admin: 11/05/24 09:04 Dose: 400 mg Documented By: ANTONETTE Tizanidine HCl (Tizanidine Hcl 4 Mg Tablet) 4 mg PO BID [facility] Last Admin: 11/05/24 09:02 Dose: 4 mg Documented By: ANTONETTE Topiramate (Topiramate 25 Mg Tablet) 25 mg PO BID [facility] Last Admin: 11/05/24 09:02 Dose: 25 mg Documented By: ANTONETTE Labs 11/04/24 04:18 11/04/24 04:18 Labs: Laboratory Results - last 24 hr 11/04/24 11/04/24 11/04/24 11:07 16:14 21:06 POC Glucose 322 H 218 H 165 H 11/05/24 07:13 POC Glucose 102 Assessment and Plan (1) BAHMAN (generalized anxiety disorder): Status: Acute Plan 54F past medical history of severe persistent asthma/COPD with chronic hypoxic respiratory failure on 2-3 L supplemental O2, cocaine abuse, HENRY with obesity hypoventilation and suboptimal compliance with BiPAP, chronic systolic CHF, hypertension presented 10/30/2024 with shortness of breath requiring brief intubation and ICU admission. Was quickly extubated same day treated with BiPAP and eventually downgraded to medical floor on 11/04/2024. Acute on chronic hypoxic and hypercapnic respiratory failure due to severe persistent asthma/COPD with acute decompensation likely due to cocaine use and rhino virus Now back on chronic O2 levels but still tachypneic and using accessory muscles Continue prednisone Doubt pneumonia we will discontinue antibiotics Likely anxiety component as well started on clonazepam HENRY BiPAP at night Chronic systolic CHF Continue Lasix Diabetes Insulin sliding scale DVT prophylaxis with heparin subQ Full code reason for continued hospitalization: Respiratory distress Quality Stroke Does the patient have a stroke diagnosis?: No VTE Prior VTE?: No VTE Risk Level:: Medical - moderate - high VTE Device Contraindication: Treatment Not Indicated VTE Drug Contraindication: N/A - Med Ordered
[2024-11-05 10:59] LABS: Glucose, Whole Blood 118 mg/dL (60-115)
--- NOTE | 2024-11-05 14:44 | PC.NURSE ---
patient requested anxiety med 30 minutes early
--- NOTE | 2024-11-05 15:01 | MHC.CM.PN ---
CM received a visit from nurse navigator, who works with pt in her home. She said that pt. lives in a third wa apt. walk up, and could benefit from pulmonary rehab before going home, she has had multiple hosp. stays. informed, requested PT eval for when pt. is stable to help determine DCP.
[2024-11-05 16:13] LABS: Glucose, Whole Blood 225 mg/dL (60-115)
[2024-11-05] MEDS: Insulin Lispro 100 UNIT/ML 3 ML VIAL SUBCUT ×2 (17:26→20:58)
[2024-11-05 20:48] LABS: Glucose, Whole Blood 153 mg/dL (60-115)
[2024-11-05] MEDS: Atorvastatin Calcium 40 MG TABLET PO (20:57)
[2024-11-05] MEDS: Magnesium Hydrox/Alum Hydrox 30 ML ORAL.SUSP PO (22:12)
[2024-11-06] VITALS (10 sets, daily range): BP systolic 110–137; BP diastolic 57–87; PULSE 69–110; RESP 12–22; TEMP 36.1–36.4; O2SAT 89–100; BMI 32.7
[2024-11-06] MEDS: Heparin Sodium,Porcine 5,000 UNIT/ML VIAL 5000 UNIT SUBCUT ×2 (01:51→08:21)
[2024-11-06] MEDS: OLANZapine 5 MG TABLET PO ×2 (05:50→13:37)
[2024-11-06] MEDS: Morphine Sulfate 2 MG/ML CARTRIDGE IVPUSH ×3 (05:50→13:27)
[2024-11-06] MEDS: Albuterol/Iprat 2.5/0.5MG 3 ML AMPUL.NEB INHALE ×3 (06:01→15:03)
[2024-11-06 07:54] LABS: Glucose, Whole Blood 83 mg/dL (60-115)
[2024-11-06] MEDS: Sertraline HCL 50 MG TABLET 150 MG PO (08:18)
[2024-11-06] MEDS: predniSONE 20 MG TABLET 40 MG PO (08:19)
[2024-11-06] MEDS: Topiramate 25 MG TABLET PO (08:19)
[2024-11-06] MEDS: TiZANidine HCL 4 MG TABLET PO (08:19)
[2024-11-06] MEDS: Losartan Potassium 50 MG TABLET PO (08:19)
[2024-11-06] MEDS: Gabapentin 400 MG CAPSULE 800 MG PO ×2 (08:19→11:46)
[2024-11-06] MEDS: Loratadine 10 MG TABLET PO (08:19)
[2024-11-06] MEDS: Theophylline Anhydrous ER 400 MG TAB.ER.24H PO (08:19)
[2024-11-06] MEDS: Furosemide 20 MG TABLET PO (08:19)
[2024-11-06] MEDS: Aspirin Enteric Coated 81 MG TABLET.DR PO (08:19)
[2024-11-06] MEDS: guaiFEN/Codeine SF 200/20/10ML 10 ML LIQUID PO (08:20)
[2024-11-06] MEDS: 0.9 % Sodium Chloride Flush 3 ML SYRINGE IVFLUSH (08:23)
[2024-11-06 08:29] LABS: Hemoglobin 9.4 g/dl (12.0-16.0); Mean Corpuscular HGB Conc 29.4 g/dl (31.0-35.0); Mean Corpuscular Hemoglobin 22.9 pg (27.0-33.0); Mean Platelet Volume 9.4 fL (9.4-12.3); Platelet Count 404 X10*3/uL (160-400); Red Cell Distribution Width 18.4 % (11.0-16.0); White Blood Count 14.3 X10*3/uL (4.8-10.8)
[2024-11-06 08:43] LABS: Anion Gap 13 (12-20); Blood Urea Nitrogen 22 mg/dL (9-16); Calcium 9.3 mg/dL (8.4-10.2); Carbon Dioxide 26 mmol/L (22-29); Chloride 106 mmol/L (96-108); Creatinine Clr Calc Pharmacy 79.4; Estimated Glomerular Filt Rate > 60; Glucose Random 75 mg/dL (60-115); Sodium 141 mmol/L (135-145)
[2024-11-06] MEDS: polyethylene glycoL 3350 17 GM POWD.PACK PO (08:50)
[2024-11-06] MEDS: diphenhydrAMINE HCL 50 MG/ML VIAL 25 MG IVPUSH (08:50)
--- NOTE | 2024-11-06 09:30 | PC.NURSE ---
Patient complaining of 8/10 pain during morning med pass. Patient requesting pain medication at 0830, Morphine not due until 09:50. MD notified of pain, per MD administer PRN morphine early. Medication administered at 0836 with good effect .
--- NOTE | 2024-11-06 11:01 | PC.NURSE ---
Patient upset this morning states that she is being discharged today and that her clothes are missing that have her bank card in the pants pocket. Patient was admitted on 10/30 and states that the last time her clothes were seen was in the emergency room. Patient belonging list looked up from ICU stay and no mention of clothing only socks and slippers and dentures. 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 This RN called down to emergency room, awaiting call back to see if clothes can be located
--- NOTE | 2024-11-06 11:06 | PM.DS ---
DS: Providers Provider Date of Service: 11/06/24 Date of admission: 10/30/24 08:37 Date of discharge: 11/06/24 Primary care physician: DOTTY Lazcano Consults: 11/02/24 09:16 Consult to Psychiatry Routine Consulting Provider: [facility] Psych Covering Reason for consultation: severe anxiety repeated admissions to hospital DS: Diagnosis Discharge Diagnosis (1) Cocaine use disorder: Status: Acute DS: Summary Hospital Course Hospital Course: from initial hpi: 54-year-old lady with underlying severe asthma/COPD overlap syndrome on 2-3 L of supplemental O2 at baseline, cocaine abuse, HENRY with obesity hypoventilation with suboptimal compliance with nocturnal BiPAP, systolic congestive heart failure, hypertension admitted on 10/30/2024 with complaints of worsening dyspnea intubated in the emergency room and extubated after arrival to the intensive care unit. hospital course: Patient was admitted for acute on chronic hypoxic and hypercapnic respiratory failure due to severe persistent asthma/COPD with acute decompensation likely due to cocaine use and rhino virus. Patient was intubated and briefly admitted to the intensive care unit quickly extubated after several hours and treated with BiPAP eventually downgraded to medical floor. Continued on steroids and nebs. Empirically given antibiotics though no obvious infection. Patient back to baseline 2-3 L home O2 and shortness of breath at baseline. Was able to tolerate moderate exertion with physical therapy. We will be discharged home on 5 more days of prednisone. Educated regarding association of cocaine use and her medical condition. For HENRY continued BiPAP at night. For chronic systolic CHF continued on Lasix. For diabetes continued on insulin sliding scale. Patient is feeling better will be discharged home. Time Attestation Discharge Coordination Time (in mins): 33 Quality: Safe Use of Opioids Does Pt have an Active Cancer Diagnosis on the Problem List?: No Quality: Stroke Does the patient have a stroke diagnosis?: No Physical Exam Vital Signs: Vital Signs: Last Vital Signs Temp 97.4 F 11/06/24 08:00 Pulse 104 H 11/06/24 08:00 Resp 22 H 11/06/24 08:00 BP 137/63 11/06/24 08:00 Pulse Ox 89 L 11/06/24 08:00 O2 Del Method Nasal Cannula 11/06/24 08:00 O2 Flow Rate 2 11/06/24 08:00 FiO2 28 11/05/24 08:00 Oxygen Flow Rate 30 10/30/24 08:21 BMI result Body Mass Index 32.7 General: AO X 3, no acute distress Resp: Diminished bilateral, mild accessory muscles used CVS: S1,S2,RRR GI: soft, non tender, non distended Neuro: motor grossly intact, alert Psych: appropriate affect, appropriate insight DS: Data Data Completed and Pending Completed studies during hospitalization [Text1]: Procedures Assistance with Respiratory Ventilation, Less than 24 Consecutive Hours, Continuous Positive Airway Pressure (10/21/24) Insertion of Endotracheal Airway into Trachea, Via Natural or Artificial Opening (11/03/20) Insertion of Infusion Device into Superior Vena Cava, Percutaneous Approach (11/03/20) Respiratory Ventilation, Less than 24 Consecutive Hours (11/03/20) Labs on day of discharge: Laboratory Results - last 24 hr 11/05/24 11/05/24 11/06/24 16:09 20:35 07:44 WBC RBC Hgb Hct MCV MCH MCHC RDW Plt Count MPV Absolute Nucleated RBC Nucleated RBC % (auto) Sodium Potassium Chloride Carbon Dioxide Anion Gap BUN Creatinine Estim Creat Clear Calc Estimated GFR POC Glucose 225 H 153 H 83 Random Glucose Calcium 11/06/24 08:15 WBC 14.3 H RBC 4.10 L Hgb 9.4 L Hct 32.0 L MCV 78.0 L MCH 22.9 L MCHC 29.4 L RDW 18.4 H Plt Count 404 H MPV 9.4 Absolute Nucleated RBC 0.000 Nucleated RBC % (auto) 0.0 Sodium 141 Potassium 4.0 Chloride 106 Carbon Dioxide 26 Anion Gap 13 BUN 22 H Creatinine 0.72 Estim Creat Clear Calc 79.4 Estimated GFR > 60 POC Glucose Random Glucose 75 Calcium 9.3 Discharge Plan Discharge Anticipated Discharge Date/Time: 11/06/24 11:02 Patient Disposition: Home Health Service Discharge Diagnosis: copd Referrals: Joe Hale, [employer] [Primary Care Provider] - 1 Week Discharge Medications: New prednisone 20 mg Tablet 40 mg PO DAILY Qty: 10 0RF codeine-guaifenesin 10-100 mg/5 mL Liquid 10 ml PO Q4H PRN (Reason: Cough) Qty: 118 0RF Continued (DME) 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 meter [FreeStyle Lite Meter] Kit See Rx Instructions .ROUTE .MEDSUPPLY Qty: 1 0RF Rx Instructions: Use to check blood sugar daily or if symptomatic for hypo/hyperglycemia (DME) FreeStyle Lite Strips Strip See Rx Instructions .ROUTE .MEDSUPPLY Qty: 100 1RF Rx Instructions: Use to check blood sugar daily or if symptomatic hypo/hypergylcemia theophylline 400 mg tablet extended release 24 hr 400 mg PO BID 90 Days Qty: 180 4RF (DME) cane Device See Rx Instructions .Route Qty: 1 0RF Rx Instructions: Standard cane (DME) Rollator walker See Rx Instructions .Route .MEDSUPPLY Qty: 1 0RF Rx Instructions: As directed (DME) pulse oximeter See Rx Instructions .Route .MEDSUPPLY Qty: 1 0RF Rx Instructions: As directed (DME) FreeStyle Jemima 3 Plus Sensor Device See Rx Instructions .Route Qty: 2 5RF Rx Instructions: To monitor blood sugars 4 times per day. Change sensor every 15 days (DME) FreeStyle Jemima 3 [place] Misc See Rx Instructions .Route Qty: 1 0RF Rx Instructions: To monitor blood sugar 4 times per day acetaminophen 650 mg tablet extended release 650 mg PO Q12H PRN (Reason: pain) 30 Days Qty: 60 0RF albuterol sulfate [Ventolin HFA] 90 mcg/actuation HFA aerosol inhaler 2 puff inhalation Q6H PRN (Reason: for wheezing) Qty: 1 6RF aspirin 81 mg tablet,delayed release (DR/EC) 81 mg PO DAILY 90 Days Qty: 90 1RF atorvastatin 40 mg tablet 40 mg PO BEDTIME Qty: 90 0RF esomeprazole magnesium 40 mg capsule,delayed release(DR/EC) 40 mg PO DAILY@0630 Qty: 90 1RF fexofenadine [Elisabeth Allergy] 180 mg tablet 180 mg PO DAILY Qty: 30 3RF furosemide 20 mg tablet 20 mg PO DAILY Qty: 90 3RF gabapentin 800 mg tablet 800 mg PO QID 30 Days Qty: 120 1RF glipizide 5 mg tablet 5 mg PO DAILY Qty: 90 1RF glucose 4 gram tablet,chewable 16 g PO Q15M MDD 8 tabs PRN (Reason: hypoglycemia) Qty: 100 1RF Rx Instructions: until symptoms of low blood sugar are controlled ibuprofen 800 mg tablet 800 mg PO BID PRN (Reason: Headache) 30 Days Qty: 60 0RF Rx Instructions: please use sparingly due to diabetes ipratropium-albuterol 0.5 mg-3 mg(2.5 mg base)/3 mL solution for nebulization 3 ml INHALATION TID Qty: 180 0RF (DME) lancets [FreeStyle Lancets] 28 gauge misc See Rx Instructions .ROUTE .MEDSUPPLY Qty: 100 1RF Rx Instructions: Use to check blood sugar daily or if symptomatic hypo/hypergylcemia losartan 50 mg tablet 50 mg PO DAILY Qty: 90 0RF sertraline 100 mg tablet 150 mg PO DAILY 90 Days Qty: 135 0RF Stiolto Respimat 2.5-2.5 mcg/actuation mist 2 puff INHALATION DAILY Qty: 4 0RF calcium carbonate-vitamin D3 500 mg-10 mcg (400 unit) tablet 1 tab PO DAILY albuterol sulfate 2.5 mg /3 mL (0.083 %) solution for nebulization 2.5 mg inhalation Q4H PRN (Reason: Shortness Of Breath/Wheezing) (DME) walker Misc See Rx Instructions .Route Qty: 1 0RF Rx Instructions: As directed nicotine 21 mg/24 hr patch 24 hour 1 patch transdermal Q24H Qty: 28 0RF tramadol 50 mg tablet 50 mg PO Q6H PRN (Reason: pain) Qty: 20 0RF tizanidine 4 mg tablet 4 mg PO Q12H Rx Instructions: do not take concurrently with famotidine topiramate 25 mg tablet 25 mg PO BID Discharge Orders: Discharge Order (Routine); Ordered 11/06/24 Ordered By: Pierre Agustin Diet: Advance to usual diet Activity on Discharge: As tolerated Stand Alone Forms: Patient Portal Discharge page Print Language: Bruneian Care Plan Goals: recovery Health Concerns: copd Plan of Treatment: 5 more days prednisone avoid cocaine Assessment: see above
[2024-11-06 11:23] LABS: Glucose, Whole Blood 213 mg/dL (60-115)
[2024-11-06] MEDS: Insulin Lispro 100 UNIT/ML 3 ML VIAL SUBCUT (11:46)
--- NOTE | 2024-11-06 13:44 | MHC.CM.PN ---
Pt has been medically cleared to DC today, she will go home via BLS and resume her services from [facility].
[2024-11-06 13:45] LABS: Glucose, Whole Blood 157 mg/dL (60-115)
== END 2024-11-06 16:53 | disposition home health service (06) | DRG 816 ==
LOC: HO.ED 04:45 → HO.EDOVER 08:37 → HO.ICU 08:42 → HO.IMC 11-04 16:27
PROVIDERS: Internal Medicine Critical Care Medicine; Physician Assistant Medical; Registered Nurse Community Health; Student in an Organized Health Care Education/Training Program; Admitting Provider Internal Medicine Pulmonary Disease; Emergency Provider Internal Medicine; PCP Nurse Practitioner Family; Visit Provider Internal Medicine
DX: T40.5X1A Poisoning by cocaine, accidental (unintentional), initial encounter (principal); J96.21 Acute and chronic respiratory failure with hypoxia; J44.1 Chronic obstructive pulmonary disease with (acute) exacerbation; I50.22 Chronic systolic (congestive) heart failure; J45.51 Severe persistent asthma with (acute) exacerbation; E66.2 Morbid (severe) obesity with alveolar hypoventilation; I11.0 Hypertensive heart disease with heart failure; F41.1 Generalized anxiety disorder; F14.10 Cocaine abuse, uncomplicated; B97.89 Other viral agents as the cause of diseases classified elsewhere; F17.210 Nicotine dependence, cigarettes, uncomplicated; J96.22 Acute and chronic respiratory failure with hypercapnia; Z99.81 Dependence on supplemental oxygen; Z20.822 Contact with and (suspected) exposure to COVID-19; Z71.6 Tobacco abuse counseling; Z79.82 Long term (current) use of aspirin; Z79.84 Long term (current) use of oral hypoglycemic drugs; Z79.899 Other long term (current) drug therapy
CPT/HCPCS: 36415; 71045; 80048; 80053; 80307; 82040; 82803; 82947; 83605; 83735; 83880; 84100; 84484; 85025; 85027; 87040; 87633; 93005; 94002; 94660; 94799; 97162; 99285; J0295; J0696; J1200; J1644; J1938; J2250; J2270; J2359; J2405; J2543; J2704; J2919; J3010; J3475; P9047

== ENCOUNTER → 2024-10-30 01:43 | Outpatient (BNV) | payer OTHER, SELFPAY | PROVIDERS: Admitting Provider Internal Medicine Pulmonary Disease; Emergency Provider Internal Medicine; PCP Nurse Practitioner Family; Visit Provider Internal Medicine Cardiovascular Disease | DX: I49.1 Atrial premature depolarization (principal); R00.0 Tachycardia, unspecified; I51.7 Cardiomegaly | CPT/HCPCS: 93010 ==

== ENCOUNTER → 2024-10-30 01:43 | Outpatient (BNV) | payer OTHER, SELFPAY | PROVIDERS: Emergency Provider Internal Medicine; PCP Nurse Practitioner Family; Visit Provider General Practice | DX: J98.11 Atelectasis (principal); R06.02 Shortness of breath | CPT/HCPCS: 71045 ==

== ENCOUNTER 2024-10-30 08:37 | Outpatient (BNV) | payer OTHER, SELFPAY | END 2024-11-02 13:00 | PROVIDERS: Admitting Provider Internal Medicine Pulmonary Disease; Emergency Provider Internal Medicine; PCP Nurse Practitioner Family; Visit Provider Internal Medicine | DX: I49.1 Atrial premature depolarization (principal); R00.0 Tachycardia, unspecified | CPT/HCPCS: 93010 ==

== ENCOUNTER → 2024-10-30 08:37 | Outpatient (BNV) | payer OTHER, SELFPAY | PROVIDERS: Admitting Provider Internal Medicine Pulmonary Disease; Emergency Provider Internal Medicine; PCP Nurse Practitioner Family; Visit Provider Social Worker | DX: F14.10 Cocaine abuse, uncomplicated (principal) | CPT/HCPCS: 99222 ==

== ENCOUNTER → 2024-10-30 08:37 | Outpatient (BNV) | payer OTHER, SELFPAY | PROVIDERS: Admitting Provider Internal Medicine Pulmonary Disease; Emergency Provider Internal Medicine; PCP Nurse Practitioner Family; Visit Provider Registered Nurse Community Health | DX: F14.10 Cocaine abuse, uncomplicated (principal); R79.89 Other specified abnormal findings of blood chemistry; I50.9 Heart failure, unspecified; R94.31 Abnormal electrocardiogram [ECG] [EKG]; E11.42 Type 2 diabetes mellitus with diabetic polyneuropathy | CPT/HCPCS: 99232; 99499 ==

== ENCOUNTER → 2024-10-30 08:37 | Outpatient (BNV) | payer OTHER, SELFPAY | PROVIDERS: Admitting Provider Internal Medicine Pulmonary Disease; Emergency Provider Internal Medicine; PCP Nurse Practitioner Family; Visit Provider Internal Medicine | DX: F41.1 Generalized anxiety disorder (principal) | CPT/HCPCS: 99233 ==

== ENCOUNTER → 2024-10-30 08:37 | Outpatient (BNV) | payer OTHER, SELFPAY | PROVIDERS: Admitting Provider Internal Medicine Pulmonary Disease; Emergency Provider Internal Medicine; PCP Nurse Practitioner Family; Visit Provider Internal Medicine Pulmonary Disease | DX: F14.10 Cocaine abuse, uncomplicated (principal); I50.9 Heart failure, unspecified; J96.01 Acute respiratory failure with hypoxia; J96.02 Acute respiratory failure with hypercapnia; E11.42 Type 2 diabetes mellitus with diabetic polyneuropathy | CPT/HCPCS: 99233; 99291 ==

== ENCOUNTER 2024-11-12 00:53 | Inpatient (IN) | payer OTHER, SELFPAY ==
[2024-11-12] VITALS (13 sets, daily range): BP systolic 101–157; BP diastolic 58–79; PULSE 86–110; RESP 15–28; TEMP 36.1–36.7; O2SAT 90–98; BMI 32.4; BMI 33.6; BMI 32.0
--- NOTE | ~2024-11-12 | XR_ITS ---
CLINICAL HISTORY: sob 1 view chest x-ray Comparison: CR - XR CHEST 1V - 10/30/24 04:37 EDT Findings: Previous left base consolidation has resolved. No new consolidation or effusion. There is subtle increased opacity at the right lung base, at the level of posterior 10th rib. Heart is enlarged. Calcifications at the left greater tuberosity may be due to calcific tendinitis. Similar to prior. IMPRESSION: There is a questionable developing consolidation at the right lower lung. This document has been electronically signed by: Solomon Leyva MD on 11/12/2024 04:19:37
--- NOTE | 2024-11-12 00:58 | ED_ITS ---
HPI - SOB/Dyspnea General Chief Complaint: Dyspnea Stated Complaint: SOB wheezy, duo wheezy Time Seen by Provider: 11/12/24 00:58 Source: patient, EMS and old records reviewed Mode of arrival: EMS Limitations: no limitations History of Present Illness ED Provider: DR. De Leon HPI Narrative: 54-year-old female with PMH of non insulin-dependent diabetes, HENRY, hypertension, hyperlipidemia, COPD/emphysema use CPAP at home patient is not compliant with the machine. with current nicotine use 1 pack per day of cigarettes, cocaine use, obesity, GERD, Bustos's esophagus, CHFrEF and was started on Lasix. Patient presented today by ambulance for increased difficulty breathing, patient was found to have O2 sat of 92% on room air patient was given DuoNeb and transported to the hospital in the ED patient is anxious, complaining of difficulty breathing and wheezing with chest tightness. No fever, no chills. Related Data Home Medications ?Medication ?Instructions ?Recorded ?Confirmed calcium 500 mg (as 1 tab PO DAILY 06/26/24 10/30/24 carbonate)-vitamin D3 10 mcg (400 unit) tablet tizanidine 4 mg tablet 4 mg PO Q12H muscle spasm 10/21/24 10/30/24 topiramate 25 mg tablet 25 mg PO BID 10/30/24 10/30/24 Previous Rx's ?Medication ?Instructions ?Recorded 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 meter (FreeStyle #1 03/01/22 Lite Meter kit) blood sugar diagnostic (FreeStyle #100 ea 09/16/22 Lite Strips) walker #1 ea 07/14/24 Rollator walker #1 ea 09/16/24 cane #1 ea 09/16/24 pulse oximeter #1 09/16/24 FreeStyle Jemima 3 Plus Sensor #2 ea 09/22/24 (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 sensor) FreeStyle Jemima 3 [place] #1 09/22/24 (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,solvent mixer,cont) nicotine 21 mg/24 hr daily 1 patch transdermal Q24H #28 ea 10/01/24 transdermal patch tramadol 50 mg tablet 50 mg PO Q6H PRN pain #20 tabs 10/12/24 acetaminophen 650 mg 650 mg PO Q12H PRN pain 30 days 11/01/24 tablet,extended release #60 tabs aspirin 81 mg tablet,delayed 81 mg PO DAILY 90 days #90 tabs 11/01/24 release atorvastatin 40 mg tablet 40 mg PO BEDTIME #90 tabs 11/01/24 esomeprazole magnesium 40 mg 40 mg PO DAILY@0630 #90 caps 11/01/24 capsule,delayed release fexofenadine 180 mg tablet 180 mg PO DAILY #30 tabs 11/01/24 (Elisabeth Allergy) furosemide 20 mg tablet 20 mg PO DAILY #90 tabs 11/01/24 gabapentin 800 mg tablet 800 mg PO QID Pain 30 days #120 11/01/24 tabs glipizide 5 mg tablet 5 mg PO DAILY #90 tabs 11/01/24 glucose 4 gram chewable tablet 16 g (4 x 4 gram) PO Q15M PRN 11/01/24 hypoglycemia #100 tabs ibuprofen 800 mg tablet 800 mg PO BID PRN Headache 30 days 11/01/24 #60 tabs ipratropium 0.5 mg-albuterol 3 mg 3 ml inhalation TID #180 mL 11/01/24 (2.5 mg base)/3 mL nebulization soln lancets 28 gauge (FreeStyle #100 ea 11/01/24 Lancets) losartan 50 mg tablet 50 mg PO DAILY #90 tabs 11/01/24 sertraline 100 mg tablet 150 mg (1.5 x 100 mg) PO DAILY 90 11/01/24 days #135 tabs tiotropium 2.5 mcg-olodaterol 2.5 2 puff inhalation DAILY #4 grams 11/01/24 mcg/actuation mist for inhalation (Stiolto Respimat) codeine 10 mg-guaifenesin 100 mg/5 10 ml PO Q4H PRN Cough #118 mL 11/06/24 mL oral liquid prednisone 20 mg tablet 40 mg (2 x 20 mg) PO DAILY #10 tabs 11/06/24 albuterol sulfate 2.5 mg/3 mL 2.5 mg (3 mL) inhalation Q4H PRN 11/09/24 (0.083 %) solution for nebulization Shortness Of Breath/Wheezing #180 mL albuterol sulfate 90 mcg/actuation 2 puff inhalation Q6H PRN for 11/09/24 aerosol inhaler (Ventolin HFA) wheezing #1 ea theophylline 400 mg 400 mg PO BID 90 days #180 tabs 11/09/24 tablet,extended release 24 hr Allergies Allergy/AdvReac Type Severity Reaction Status Date / Time doxycycline Allergy Severe Swelling Verified 11/12/24 01:04 varenicline [From CHANTIX] Allergy Severe ANAPHYLAXIS Verified 11/12/24 01:04 azithromycin Allergy Intermediate Rash Verified 11/12/24 01:04 barium sulfate Allergy Intermediate angioedema Verified 11/12/24 01:04 cetirizine Allergy Mild Rash Verified 11/12/24 01:04 famotidine Allergy Mild Rash Verified 11/12/24 01:04 linaclotide [Linzess] Allergy Mild Rash Verified 11/12/24 01:04 Review of Systems 2 Review of Systems: All other systems are reviewed and are negative Constitutional: Reports as per HPI and Reports no additional constitutional complaints Eyes: Reports as per HPI and Reports no additional eye complaints Reports system reviewed and no additional complaints, except as documented Cardiovascular: Reports as per HPI and Reports no additional cardiovascular complaints Respiratory: Reports as per HPI and Reports no additional respiratory complaints Gastrointestinal: Reports as per HPI and Reports no additional gastrointestinal complaints Genitourinary: Reports no additional female genitourinary complaints Musculoskeletal: Reports no additional musculoskeletal complaints Skin/Breast: Reports system reviewed and no additional complaints, except as docu Psychiatric: Reports no additional psychiatric complaints Endocrine: Reports no additional endocrine complaints Hematologic/Lymphatic: Reports no additional hematologic/lymphatic complaints Allergic/Immunologic: Reports no additional allergic/immunologic complaints Reports system reviewed and no additional complaints, except as documented and Reports Abnormal speech present [facility] Past Medical History Medical History Cocaine use disorder Cocaine abuse GERD (gastroesophageal reflux disease) Constipation Non-insulin dependent type 2 diabetes mellitus HENRY (obstructive sleep apnea) Acute exacerbation of chronic obstructive airways disease Asthma with exacerbation Obesity hypoventilation syndrome COPD (chronic obstructive pulmonary disease) Chronic lung disease Hypoxic respiratory failure Nocturnal hypoxemia Diabetes mellitus COPD exacerbation Crack cocaine use Hyperkalemia Metabolic acidosis Leukocytosis Chest discomfort Chronic renal failure, stage 2 (mild) SOB (shortness of breath) Asthma Smoker Rotator cuff tendonitis GERD (gastroesophageal reflux disease) Chronic idiopathic constipation Bustos's esophagus Depression High triglycerides Gastroparesis Carpal tunnel syndrome of right wrist Nausea & vomiting Hernia Acute and chronic respiratory failure, unspecified whether with hypoxia or hypercapnia HTN (hypertension) Obesity (BMI 30-39.9) Knee pain, bilateral Surgical History History of cholecystectomy (~1988) History of carpal tunnel release Hx of tubal ligation History of pubovaginal sling (~2015) History of umbilical hernia repair (~2001) Hx of section History of open reduction and internal fixation (ORIF) procedure History of esophagogastroduodenoscopy (EGD) Family History Family History Father Heart disease HENRY (obstructive sleep apnea) Family history of breast cancer Mother Asthma Emphysema, unspecified Bronchitis Smoker Alcoholism Bone marrow disease Maternal Grandmother Diabetes Social History Social History Household Members: Unknown / Unable to assess Household Members Other:: sister Housing: Unknown / Unable to assess Are you a primary personal care attendant to a significant other at home: No Unable to assess alcohol history related to: Unknown Alcohol intake: unknown Comment: Sleeping Patient Tobacco Use Status: Current everyday Tobacco user Tobacco use type: Cigarette Cigarette Packs Per Day: 0.5 Cigarettes Per Day: 10.0 Years Smoked: 40? Smoked in Last 30 Days: Yes e-Cigarette/Vaping Use: Never Used Use of substances other than those prescribed or required for medical reasons: Yes Substance Use Type: Crack/Cocaine Substance Use Frequency: Daily Advance Directives: Yes Advance Directives on File: Yes Advance Directives Date on File: 12/19/23 Do you have a plan to hurt others: No Plan Patient : No service: No Current occupational status: disabled 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 Physical Exam 2 Vital Signs: Vital Signs: Last Vital Signs Pulse 96 11/12/24 02:06 Resp 28 H 11/12/24 02:06 BP 134/58 L 11/12/24 02:06 Pulse Ox 93 11/12/24 02:06 O2 Del Method Nasal Cannula 11/12/24 02:06 O2 Flow Rate 2 11/12/24 02:06 BMI result Body Mass Index 32.4 Vital signs have been reviewed and appear to be correct. Blood pressure elevated. Heart rate normal. Respiratory rate normal. Temperature normal. Oxygen saturation normal. Appearance: Alert. Oriented X3. No acute distress. Head: Normal external exam. Normocephalic. Atraumatic. No Lyons signs noted. No raccoon eyes noted Eyes: PERRLA. EOMI. Conjunctiva and sclera normal. Eyelids normal. ENT: TM's Normal. Pharynx normal. Uvula midline. Moist mucous membranes. No trismus noted. No drooling noted. No muffled voice noted. Neck: Normal inspection. Neck supple. FROM. No adenopathy. Thyroid Normal. No meningeal signs. No neck mass noted. CVS: Normal heart rate and rhythm. Heart sound normal. No murmurs noted. Pulses normal throughout. Respiratory: No respiratory distress. Painless inspiration. Bilateral diffuse expiratory wheezing with prolonged expiration, decreased breathing sounds bilaterally. No accessory muscle usage noted or decreased air movement noted. Abdomen: Soft and nontender. Bowel sounds normal in all 4 quadrants. No distention noted. No organomegaly noted. No visible injury noted. Back: No CVA tenderness. Full range of motion noted. Skin: Skin warm and dry. Normal skin color. Normal skin turgor. No rashes/lesions/lacerations noted. Extremities: No lower extremity edema. Extremities exhibit normal range of motion. Extremities nontender. Neuro: Oriented X 3. Cranial nerve exam: II-XII are grossly intact No motor deficit. No sensory deficit. Reflexes normal. Course Reevaluation(s) Reevaluation #1: COPD exacerbation. Patient is well known to us for recurrent COPD exacerbation and hospitalization in the past, patient felt better after bronchodilator and prednisone with magnesium. Will admit for further evaluation. Time: 03:38 Medications Administered Discontinued Medications Generic Name Dose Route Start Last Admin Trade Name Terenceq PRN Reason Stop Dose Admin Albuterol Sulfate 7.5 mg/ 10 mg 11/12/24 01:14 11/12/24 01:29 Albuterol Sulfate 2.5 mg INHALE 11/12/24 01:15 10 mg ONCE ONE Administration Magnesium Sulfate 2 gm in 50 mls @ 25 mls/hr 11/12/24 01:00 11/12/24 01:45 Magnesium Sulfate/H2o IV 11/12/24 02:59 25 mls/hr ONCE ONE Administration Methylprednisolone Sodium Succinate 125 mg 11/12/24 01:00 11/12/24 01:45 Methylprednisolone Sod Succ 125 Mg Vial IVPUSH 11/12/24 01:01 125 mg ONCE ONE Administration Morphine Sulfate 2 mg 11/12/24 01:52 11/12/24 02:23 Morphine Sulfate 2 Mg/Ml Cartridge IVPUSH 11/12/24 01:53 2 mg ONCE ONE Administration Protocol Medical Decision Making Differential Diagnosis Differential Diagnoses: The differential diagnosis associated with the presentation includes (COPD exacerbation, pneumonia, pneumothorax, pleural effusion, CHF, ACS.) Admission/Observation Consideration of admission/observation: Escalation of care including admission/observation considered Consult Healthcare Provider Management of the patient was discussed with: Hospitalist (Dr. Coelho) Lab Data [facility] Lab Attestation statement: I reviewed the patient's lab results. 11/12/24 01:16 11/12/24 01:16 Labs: Lab Results 11/12/24 11/12/24 11/12/24 Range/Units 01:15 01:16 01:22 WBC 14.1 H (4.8-10.8) X10*3/uL RBC 4.39 (4.20-5.50) X10*6/uL Hgb 10.1 L (12.0-16.0) g/dl Hct 33.1 L (37.0-47.0) % MCV 75.4 L (80.0-98.0) fL MCH 23.0 L (27.0-33.0) pg MCHC 30.5 L (31.0-35.0) g/dl RDW 18.0 H (11.0-16.0) % Plt Count 460 H (160-400) X10*3/uL MPV 8.8 L (9.4-12.3) fL Immature Gran % (Auto) 0.4 (0.0-0.4) % Neut % (Auto) 59.3 (45-73) % Lymph % (Auto) 29.7 (20-40) % [place] % (Auto) 9.8 (2-11) % Eos % (Auto) 0.6 (0-4) % Baso % (Auto) 0.2 (0-2) % Lymph # (Auto) 4.2 (1.2-4.9) X10*3/uL [place] # (Auto) 1.4 H (0.1-1.2) X10*3/uL Eos # (Auto) 0.1 (0.0-0.4) X10*3/uL Baso # (Auto) 0.0 (0.0-0.2) X10*3/uL Abs Immat Gran (auto) 0.05 H (0.00-0.03) X10*3/uL Absolute Neuts (auto) 8.4 H (2.0-8.3) x10*3/uL Absolute Nucleated RBC 0.000 (0.0-0.012) X10*3/uL Nucleated RBC % (auto) 0.0 (0.0-0.2) /100WBC VBG pH 7.46 H (7.32-7.43) VBG pCO2 40 mmHg VBG pO2 60 mmHg VBG HCO3 29 H (22-26) mmol/L VBG O2 Saturation 90.0 % VBG Base Excess 5.3 mmol/L Sodium 141 (135-145) mmol/L Potassium 3.4 (3.3-5.1) mmol/L Chloride 102 (96-108) mmol/L Carbon Dioxide 26 (22-29) mmol/L Anion Gap 16 (12-20) BUN 23 H (9-16) mg/dL Creatinine 1.00 (0.5-1.4) mg/dL Estim Creat Clear Calc 54.5 Estimated GFR 57 Random Glucose 111 (60-115) mg/dL Lactic Acid 2.0 (0.5-2.0) mmol/L Calcium 9.2 (8.4-10.2) mg/dL Total Bilirubin 0.2 (0.0-1.0) mg/dL Direct Bilirubin < 0.2 (0.0-0.5) mg/dL AST 15 (5-31) U/L ALT 16 (0-31) U/L Alkaline Phosphatase 68 (39-117) U/L Troponin I High Sens 27.5 H (<3.5-17.0) ng/L B-Natriuretic Peptide 62 (<100) pg/mL Total Protein 6.6 (6.5-8.0) g/dL Albumin 4.0 (3.5-5.0) g/dL Lipase 30 (8-78) U/L Influenza Type A (PCR) NEGATIVE (Negative) Influenza Type B (PCR) NEGATIVE (Negative) RSV RNA Qual (PCR) NEGATIVE (Negative) SARS-CoV-2 RNA (RT-PCR) NEGATIVE (Negative) Independent Interpretation I performed an independent interpretation of an: Plain X-Ray (Chest:) Radiology Impression Discussion of test interpretation with radiology: I have reviewed the radiologist's reading. Discharge Plan Discharge Clinical Impression: COPD exacerbation Patient Disposition: Admitted As Inpatient Print Language: Belarusian
--- NOTE | 2024-11-12 01:00 | ECG_ITS ---
Test Reason : SOB Blood Pressure : */* mmHG Vent. Rate : 113 BPM Atrial Rate : 113 BPM P-R Int : 116 ms QRS Dur : 92 ms QT Int : 336 ms P-R-T Axes : 73 162 62 degrees QTcB Int : 460 ms Sinus tachycardia with Premature ventricular complexes or Fusion complexes Right ventricular hypertrophy Inferior infarct , age undetermined Abnormal ECG When compared with ECG of 02-Nov-2024 13:00, Fusion complexes are now Present Premature ventricular complexes are now Present Premature atrial complexes are no longer Present Questionable change in QRS axis Referred By: Generic ED Physician Electronically Signed By: PAUL VARGAS MD
[2024-11-12 01:21] LABS: MANUAL DIFF FLAG NO
[2024-11-12 01:23] LABS: Basophils Percent Auto 0.2 % (0-2); Eosinophils Absolute Auto 0.1 X10*3/uL (0.0-0.4); Eosinophils Percent Auto 0.6 % (0-4); Hematocrit 33.1 % (37.0-47.0); Hemoglobin 10.1 g/dl (12.0-16.0); Imm Gran Abs Auto 0.05 X10*3/uL (0.00-0.03); Imm Gran Pct Auto 0.4 % (0.0-0.4); Lymphocytes Absolute Auto 4.2 X10*3/uL (1.2-4.9); Lymphocytes Percent Auto 29.7 % (20-40); Mean Corpuscular HGB Conc 30.5 g/dl (31.0-35.0); Mean Corpuscular Volume 75.4 fL (80.0-98.0); Mean Platelet Volume 8.8 fL (9.4-12.3); Monocytes Absolute Auto 1.4 X10*3/uL (0.1-1.2); Monocytes Percent Auto 9.8 % (2-11); Neutrophils Absolute Auto 8.4 x10*3/uL (2.0-8.3); Neutrophils Percent Auto 59.3 % (45-73); Platelet Count 460 X10*3/uL (160-400); Red Blood Count 4.39 X10*6/uL (4.20-5.50); White Blood Count 14.1 X10*3/uL (4.8-10.8)
[2024-11-12 01:25] LABS: Venous Blood Gas Refer to POC result
[2024-11-12 01:26] LABS: VBG Base Excess 5.3 mmol/L; VBG HCO3 29 mmol/L (22-26); VBG pCO2 40 mmHg; VBG pH 7.46 (7.32-7.43); VBG pO2 60 mmHg
[2024-11-12] MEDS: Albuterol Sulfate 7.5 MG, Albuterol Sulfate (0.083%) 2.5 MG 10 MG INHALE (01:29)
[2024-11-12 01:45] LABS: Troponin-I High Sensitivity 27.5 ng/L (<3.5-17.0)
[2024-11-12] MEDS: Magnesium Sulfate/H2O 2 GM/50 ML PIGGYBACK IV (01:45)
[2024-11-12 01:49] LABS: Alanine Aminotransferase 16 U/L (0-31); Alkaline Phosphatase 68 U/L (39-117); Anion Gap 16 (12-20); Aspartate Amino Transferase 15 U/L (5-31); Bilirubin Direct < 0.2 mg/dL (0.0-0.5); Bilirubin Total 0.2 mg/dL (0.0-1.0); Blood Urea Nitrogen 23 mg/dL (9-16); Calcium 9.2 mg/dL (8.4-10.2); Carbon Dioxide 26 mmol/L (22-29); Chloride 102 mmol/L (96-108); Creatinine Clr Calc Pharmacy 54.5; Estimated Glomerular Filt Rate 57; Glucose Random 111 mg/dL (60-115); Lipase 30 U/L (8-78); Potassium 3.4 mmol/L (3.3-5.1); Sodium 141 mmol/L (135-145); Total Protein 6.6 g/dL (6.5-8.0)
[2024-11-12 02:01] LABS: Influenza A PCR NEGATIVE (Negative); Influenza B PCR NEGATIVE (Negative); Resp Syncy Virus RNA Qual PCR NEGATIVE (Negative); SARS COV2 PCR INHOUSE NEGATIVE (Negative)
[2024-11-12 02:06] LABS: B Type Natriuretic Peptide 62 pg/mL (<100)
[2024-11-12] MEDS: Morphine Sulfate 2 MG/ML CARTRIDGE IVPUSH (02:23)
--- NOTE | 2024-11-12 03:12 | PM.IMHP ---
History of Present Illness Date of Service: 11/12/24 Attending physician on admission: Maureen Coelho Chief Complaint: dyspnea Patient is a 54-year-old female with past medical history severe asthma/COPD on home O2 2-3 L, HENRY noncompliant with nocturnal BiPAP, substance abuse to include crack cocaine, systolic congestive heart failure, hypertension, obesity was brought in by ambulance with report of ongoing dyspnea and associated chest pain after smoking crack cocaine all day 11/11. Pt stated friend that came over to do drugs gave her the RHINO FlU. Patient did attempt to use rescue inhaler at home with no relief. When EMS arrived patient's pulse ox was 90% on room air and 96% on duo neb. patient states she has been using her BiPAP at night. troponin 27.5 and BNP 62. EKG sinus tachycardia with premature ventricular complexes versus fusion complexes and right ventricular hypertrophy. Patient was recently admitted and discharged from October 30 through November 06 and required critical care intervention including intubation due to her overall respiratory distress. All viral studies are negative currently. Toxicology screen pending. Chest x-ray pending. Patient did receive methylprednisolone in the ED and is currently on 2 L nasal cannula allowing for admission to the floor on telemetry. Patient does have a leukocytosis on daily prednisone coming in but is afebrile and denies any fever or chills. Patient currently denies any chest pain, headache, visual changes or abdominal pain. Patient states constipation is stable since being discharged on November 06. Patient extremely restless but alert and orientated x3. Patient believes this is due to the use of crack cocaine most of the day yesterday. Patient denies any other illicit drug use in the last 24 hours. Patient was also given Seroquel at some point and states that this medication made her paranoid. Patient states she was prescribed seroquel from an outside provider since her discharge November 06 from this hospital. Patient is willing to see addictions this admission. Review of Systems Review of Systems: Patient currently denies any chest pain, abdominal pain, nausea or vomiting. Patient denies any headache or visual changes. Patient is reporting mild shortness of breath with exertion only. Patient does have a cough and it is currently nonproductive. Yes all other systems are reviewed and are negative PMFSH Medical History Cocaine use disorder Cocaine abuse GERD (gastroesophageal reflux disease) Constipation Non-insulin dependent type 2 diabetes mellitus HENRY (obstructive sleep apnea) Acute exacerbation of chronic obstructive airways disease Asthma with exacerbation Obesity hypoventilation syndrome COPD (chronic obstructive pulmonary disease) Chronic lung disease Hypoxic respiratory failure Nocturnal hypoxemia Diabetes mellitus COPD exacerbation Crack cocaine use Hyperkalemia Metabolic acidosis Leukocytosis Chest discomfort Chronic renal failure, stage 2 (mild) SOB (shortness of breath) Asthma Smoker Rotator cuff tendonitis GERD (gastroesophageal reflux disease) Chronic idiopathic constipation Bustos's esophagus Depression High triglycerides Gastroparesis Carpal tunnel syndrome of right wrist Nausea & vomiting Hernia Acute and chronic respiratory failure, unspecified whether with hypoxia or hypercapnia HTN (hypertension) Obesity (BMI 30-39.9) Knee pain, bilateral Functional capacity: independent ambulation Patient : No Family History Father Heart disease HENRY (obstructive sleep apnea) Family history of breast cancer Mother Asthma Emphysema, unspecified Bronchitis Smoker Alcoholism Bone marrow disease Maternal Grandmother Diabetes Surgical History History of cholecystectomy (~1988) History of carpal tunnel release Hx of tubal ligation History of pubovaginal sling (~2015) History of umbilical hernia repair (~2001) Hx of section History of open reduction and internal fixation (ORIF) procedure History of esophagogastroduodenoscopy (EGD) Social History Household Members: Unknown / Unable to assess Household Members Other:: sister Housing: Unknown / Unable to assess Are you a primary rn progressive care to a significant other at home: No Unable to assess alcohol history related to: Unknown Alcohol intake: unknown Comment: Sleeping Patient Tobacco Use Status: Current everyday Tobacco user Tobacco use type: Cigarette Cigarette Packs Per Day: 0.5 Cigarettes Per Day: 10.0 Years Smoked: 40? Smoked in Last 30 Days: Yes e-Cigarette/Vaping Use: Never Used Use of substances other than those prescribed or required for medical reasons: Yes Substance Use Type: Crack/Cocaine Substance Use Frequency: Daily Advance Directives: Yes Advance Directives on File: Yes Advance Directives Date on File: 12/19/23 Do you have a plan to hurt others: No Plan Patient : No service: No Current occupational status: disabled 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 Ebola Risk: Travel/Contact With Anyone From Affected Area/s: No Has Patient Experienced Ebola Symptoms: No Meds Allergies Allergy/AdvReac Type Severity Reaction Status Date / Time doxycycline Allergy Severe Swelling Verified 11/12/24 01:04 varenicline [From CHANTIX] Allergy Severe ANAPHYLAXIS Verified 11/12/24 01:04 azithromycin Allergy Intermediate Rash Verified 11/12/24 01:04 barium sulfate Allergy Intermediate angioedema Verified 11/12/24 01:04 cetirizine Allergy Mild Rash Verified 11/12/24 01:04 famotidine Allergy Mild Rash Verified 11/12/24 01:04 linaclotide [Linzess] Allergy Mild Rash Verified 11/12/24 01:04 Home Medications ?Medication ?Instructions ?Recorded ?Confirmed ?Last Taken ?Type calcium 500 mg (as 1 tab PO DAILY 06/26/24 10/30/24 10/20/24 History carbonate)-vitamin D3 10 mcg (400 unit) tablet tizanidine 4 mg tablet 4 mg PO Q12H muscle spasm 10/21/24 10/30/24 10/20/24 History topiramate 25 mg tablet 25 mg PO BID 10/30/24 10/30/24 Unknown History Physical Exam Vital Signs and Narrative: Vital Signs: Last Vital Signs Pulse 96 11/12/24 02:06 Resp 28 H 11/12/24 02:06 BP 134/58 L 11/12/24 02:06 Pulse Ox 93 11/12/24 02:06 O2 Del Method Nasal Cannula 11/12/24 02:06 O2 Flow Rate 2 11/12/24 02:06 BMI result Body Mass Index 32.4 Alert and orientated X3, very restless on stretcher Neuro: CN II-X11 intact, no deficits, visual acuity intact EYES: PERRLA, EOM intact ENT: hearing intact, no issues with swallowing, uvula midline, lips moist, nares patent no epistaxis Cardiac: S1 S2 tachycardic no murmur, no JVD, no edema in Lower ext Pulmonary: lungs B rhonchi throughout, mild wheeze upper lobes Abdominal: BS active in all 4 quadrants, no guarding, tenderness, rebounding, obese MSK: strength 5/5 upper and lower extremities : no CVA tenderness no bladder distension Extremities: no edema in lower extremities, PT and DP pulses palpable +2 Psych: mood anxious, judgement and insight poor Skin: bruisiung top of both hands Results Labs 11/12/24 01:16 11/12/24 01:16 Labs: Laboratory Results - last 24 hr 11/12/24 11/12/24 11/12/24 01:15 01:16 01:22 MCV 75.4 L MCH 23.0 L MCHC 30.5 L RDW 18.0 H Plt Count 460 H MPV 8.8 L Immature Gran % (Auto) 0.4 Neut % (Auto) 59.3 Lymph % (Auto) 29.7 [place] % (Auto) 9.8 Eos % (Auto) 0.6 Baso % (Auto) 0.2 Lymph # (Auto) 4.2 [place] # (Auto) 1.4 H Eos # (Auto) 0.1 Baso # (Auto) 0.0 Abs Immat Gran (auto) 0.05 H Absolute Neuts (auto) 8.4 H Absolute Nucleated RBC 0.000 Nucleated RBC % (auto) 0.0 VBG pH 7.46 H VBG pCO2 40 VBG pO2 60 VBG HCO3 29 H VBG O2 Saturation 90.0 VBG Base Excess 5.3 Anion Gap 16 Estim Creat Clear Calc 54.5 Estimated GFR 57 Random Glucose 111 Lactic Acid 2.0 Calcium 9.2 Total Bilirubin 0.2 Direct Bilirubin < 0.2 AST 15 ALT 16 Alkaline Phosphatase 68 B-Natriuretic Peptide 62 Total Protein 6.6 Albumin 4.0 Lipase 30 Influenza Type A (PCR) NEGATIVE Influenza Type B (PCR) NEGATIVE RSV RNA Qual (PCR) NEGATIVE SARS-CoV-2 RNA (RT-PCR) NEGATIVE ECG Attestation: I personally reviewed and interpreted this ECG as follows: (ST, PVCs, Fusion complexes ) ECG interpretation date: 11/12/24 Prior ECG tracings: available for review Imaging Radiologist's Impressions: CXR Pending Assessment and Plan (1) Acute respiratory failure with hypoxia and hypercarbia: Status: Acute Plan Patient is a 54-year-old female with past medical history severe asthma/COPD on home O2 2-3 L, HENRY noncompliant with nocturnal BiPAP, substance abuse to include cocaine, systolic congestive heart failure, hypertension, obesity BIBA for noted dyspnea, POX 90% on RA. Pt had smoked crack cocaine the entire day yesterday. Pt admitted with the following problem list Acute hypoxic and hypercarbic respiratory failure, no evidence of sepsis -chest x-ray notes developing RLL consolidation -Ceftriaxone started, pt has allergies/ adverse reaction to azithromycin and doxycycline -Viral studies are all negative -BiPAP at hs -nasal cannula 2 L, hypoxia resolved -telemetry -duo nebs -supportive care including antitussives -incentive spirometer - COPD exacerbation -2 L nasal cannula -duo nebs and supportive care -patient counseled on importance of smoking cessation, crack cocaine use -continue methylprednisolone 40 mg BID HENRY -BiPAP hs -patient states she has been compliant at home since discharge on November 06 Chronic systolic heart failure -continue Lasix 20 mg daily and losartan 50 mg daily (med rec pending) -low-sodium diet -fluid allowance 1500 mL -daily weights -measure I's and O's -no indication for echo, BNP within normal limits [id number] diabetes -sliding scale insulin -diabetic diet GERD -omeprazole Tobacco dependence -nicotine patch ordered (14 mgs, pt admits to 1/2 PPD) -patient counseled on the benefits of smoking cessation Cocaine abuse -patient requesting addictions consultation, has not been able to reach therapist recommended his phone number is not working -pt verbalizes that she knows this drug will take her life eventually -pt lives with sister who is also using crack cocaine DVT prophylaxis: Lovenox PPI prophylaxis: Omeprazole Med rec pending Patient is a full code Quality Stroke Does the patient have a stroke diagnosis?: No Reason for No Anti-thrombotic by Day Two: N/A - Med Ordered VTE Prior VTE?: No VTE Risk Level:: Medical - moderate - high VTE Device Contraindication: N/A - Device Ordered VTE Drug Contraindication: N/A - Med Ordered
[2024-11-12] MEDS: Nicotine 14 MG PATCH.TD24 TRANSDERMA (05:04)
[2024-11-12] MEDS: cefTRIAXone sodium 1 GM VIAL IVPUSH (05:05)
[2024-11-12 06:28] LABS: Appearance Urine Clear; Color Urine Yellow; Glucose Urine UA Negative (Negative); Leukocyte Esterase Urine Moderate (2+) (Negative); Nitrite Urine Negative (Negative); PH 6.5 (5.0-9.0); UMIC TRIGGER UACC YES; Urine Blood Negative (Negative); Urine Ketones Negative (Negative); Urine Protein Negative (Neg-Trace)
[2024-11-12 06:37] LABS: Amphetamine Screen Urine Not Detected (Not Detect); Barbiturates, Urine Not Detected (Not Detect); Benzodiazepines Screen Urine Not Detected (Not Detect); Buprenorphine Scr Not Detected (Not Detect); Cannabinoid Screen Urine Not Detected (Not Detect); Cocaine Screen Urine POSITIVE (Not Detect); Fentanyl, urine Not Detected (Not Detect); Methadone Screen, Urine Not Detected (Not Detect); Opiate Screen Urine POSITIVE (Not Detect); Oxycodone Screen Urine Not Detected (Not Detect); Phencyclidine Screen Urine Not Detected (Not Detect)
[2024-11-12 06:40] LABS: Bacteria Urine 1+ (None Seen); Hyaline Casts Urine 0-2 /LPF (0-2); RBC Urine 0-2 /HPF (0-2); UACC Culture Trigger YES; WBC Urine 0-5 /HPF (0-5)
[2024-11-12] MEDS: Omeprazole 20 MG CAPSULE.DR PO (07:11)
[2024-11-12 07:15] LABS: Glucose, Whole Blood 370 mg/dL (60-115)
--- NOTE | 2024-11-12 07:30 | PC.NURSE ---
Assumed care of pt at 0700. Pt up walking around room without O2, pt educated on need to keep O2 on d/t oxygen needed. A/ox3, respirations fast, shallow, visible sob after ambulating, bilateral expiratory wheezing/rhonci heard, maintaining O2 sat >92% on 3L O2, sinus tach on threat monitoring analyst with occasional PVCs, 100s-110s, denies CP. Pt repositioned back in bed, resting quietly. O2 sat decrease to mid 80s while sleeping- pt declines cpap while sleeping. Placed on Oxymask 3L while sleeping to maintain O2 sat. Pt updated on plan of care, call ott within reach, all needs met at this time.
[2024-11-12] MEDS: Albuterol/Iprat 2.5/0.5MG 3 ML AMPUL.NEB INHALE ×4 (07:47→19:09)
[2024-11-12 07:52] LABS: Basophils Percent Auto 0.1 % (0-2); Hematocrit 35.2 % (37.0-47.0); Hemoglobin 10.2 g/dl (12.0-16.0); Imm Gran Abs Auto 0.06 X10*3/uL (0.00-0.03); Imm Gran Pct Auto 0.4 % (0.0-0.4); Lymphocytes Absolute Auto 0.4 X10*3/uL (1.2-4.9); Lymphocytes Percent Auto 2.9 % (20-40); MANUAL DIFF FLAG SCAN; Mean Corpuscular Hemoglobin 22.6 pg (27.0-33.0); Mean Platelet Volume 9.1 fL (9.4-12.3); Monocytes Absolute Auto 0.1 X10*3/uL (0.1-1.2); Monocytes Percent Auto 0.9 % (2-11); Neutrophils Percent Auto 95.7 % (45-73); Platelet Count 486 X10*3/uL (160-400); Red Blood Count 4.51 X10*6/uL (4.20-5.50); Red Cell Distribution Width 18.6 % (11.0-16.0); SCAN SMEAR FLAG 1; White Blood Count 13.6 X10*3/uL (4.8-10.8)
--- NOTE | 2024-11-12 08:02 | PM.EVENT ---
Event Note Date of Service: 11/12/24 Event Note: Patient seen and examined: Shortness of breaths seems to be improving, denies any chest pain, somewhat anxious. She says but feeling better than when she came . Physical exam: As per H and P Pulmonary: Air entry somewhat improving, diminished at bases Assessment plan: as per h&P: Acute hypoxic and hypercarbic respiratory failure, no evidence of sepsis,pneumonia: Continue nebs, steroids, antibiotics, blood culture pending Monitor respiratory status closely. Anxiety: Patient is anxiety medication started. Rest of plan is as similar H&P. Time Spent With Patient Time: Total time managing care of this patient today ____ minutes.
[2024-11-12 08:09] LABS: Alanine Aminotransferase 17 U/L (0-31); Albumin Level 4.1 g/dL (3.5-5.0); Alkaline Phosphatase 72 U/L (39-117); Aspartate Amino Transferase 14 U/L (5-31); Bilirubin Total 0.2 mg/dL (0.0-1.0); Blood Urea Nitrogen 22 mg/dL (9-16); Calcium 8.9 mg/dL (8.4-10.2); Creatinine Clr Calc Pharmacy 46.6; Estimated Glomerular Filt Rate 48; Total Protein 6.6 g/dL (6.5-8.0)
[2024-11-12 08:15] LABS: Glucose Random 387 mg/dL (60-115)
[2024-11-12 08:17] LABS: SLIDE REVIEW VERIFIED
[2024-11-12] MEDS: Enoxaparin Sodium 40 MG/0.4 ML SYRINGE SUBCUT (08:19)
[2024-11-12] MEDS: Insulin Lispro 100 UNIT/ML 3 ML VIAL SUBCUT ×3 (08:19→20:21)
[2024-11-12] MEDS: 0.9 % Sodium Chloride Flush 3 ML SYRINGE IVFLUSH ×3 (08:20→23:59)
[2024-11-12 08:24] LABS: Anion Gap 19 (12-20); Carbon Dioxide 26 mmol/L (22-29); Chloride 99 mmol/L (96-108); Sodium 139 mmol/L (135-145)
--- NOTE | 2024-11-12 09:22 | PHA.MEDREC ---
Addendum entered by Anna Oro 11/12/24 16:51: Patient states she is on Quetiapine 25 mg, Called [facility] pharmacy [phone] and they confirmed Quetiapine 25 mg at bedtime and 1 t prn racing thoughts was delivered to patient house 11/11/24 added to med list. Addendum entered by Hector Uriostegui RPh 11/12/24 09:35: med rec checked by [facility] Original Note: Pharmacy Consult ? Medication Reconciliation Pharmacy has completed the medication reconciliation. Spoke with patient and she confirmed she was just discharged here last week and stated non of those medications has changed and confirmed she was started on a Prednisone regimen and Codeine-Guaifenesin regimen and confirmed she finished those yesterday. I asked about Toperimate since that has not been filled for a bit in claims and the patient confirmed she was taking it to help stop smoking but stated she stopped that herself about 1 month ago due to not seeing any changes while taking it. Patient also confirmed she is taking the Sertraline 25mg tab and 100mg tab once a day for 1 month and stated she started that dose yesterday.
[2024-11-12 11:07] LABS: Glucose, Whole Blood 136 mg/dL (60-115)
[2024-11-12 13:01] LABS: Glucose, Whole Blood 191 mg/dL (60-115)
[2024-11-12] MEDS: Nicotine 21 MG PATCH.TD24 TRANSDERMA (13:23)
[2024-11-12] MEDS: methylPREDNISolone Sod Succ 40 MG/ML VIAL IVPUSH ×2 (13:24→23:57)
[2024-11-12] MEDS: Gabapentin 400 MG CAPSULE 800 MG PO ×3 (13:24→20:20)
[2024-11-12] MEDS: TiZANidine HCL 4 MG TABLET PO ×2 (13:54→23:58)
--- NOTE | 2024-11-12 15:28 | PC.NURSE ---
Respiratory at bedside- pt placed back on cpap while sleeping. Respirations even and unlabored, no increase wob/sob, maintaining O2 sat >92%, remains on continuous O2 monitor. Sinus tach on surveillance monitor, 100s-110s. Denies CP/sob. Pt updated on plan of care, call ott within reach, all needs met at this time.
--- NOTE | 2024-11-12 16:02 | MHC.CM.PN ---
Addendum entered by Josy Rodgers 11/13/24 07:38: Patient is currently active with [facility]. Original Note: Patient lives in a third floor walk up apartment with her Sister and she uses a walker to assist with mobility. Patient has a VOLUMETRIC WEIGHER and has had [facility] and home O2 & Bipap through [employer]. Patient may benefit from a PT Eval and Recovery Team Consult to assist with disposition. CM has initiated and will follow for dc planning. PCP is Dr. Joe Hale and Daughter/Jaja is the HCP/Transportation is TBD.
--- NOTE | 2024-11-12 16:12 | MHC.CM.PN ---
PT REPORTS SHE LIVES WITH HER SISTER AND HAS A INSPECTOR PLATING DAILY WELL A [facility] CM SHE HAS A WALKER, CANE, WHEEL CHAIR, OXYGEN, AND CPAP ([facility]) HCP ON FILE PCP: DALJIT HIANES DCP: HOME, [facility] PT WILL NEED LYFT TRANSPORT
[2024-11-12 16:16] LABS: Glucose, Whole Blood 118 mg/dL (60-115)
[2024-11-12 19:53] LABS: Glucose, Whole Blood 255 mg/dL (60-115)
[2024-11-12] MEDS: Theophylline Anhydrous ER 400 MG TAB.ER.24H PO (20:20)
[2024-11-12] MEDS: Sennosides 8.6 MG TABLET 17.2 MG PO (20:20)
[2024-11-12] MEDS: QUEtiapine Fumarate 25 MG TABLET PO (20:20)
[2024-11-12] MEDS: Atorvastatin Calcium 40 MG TABLET PO (20:20)
[2024-11-12] MEDS: Melatonin 3 MG TABLET 6 MG PO (20:20)
[2024-11-12 22:14] LABS: Glucose, Whole Blood 203 mg/dL (60-115)
[2024-11-13 03:35] VITALS: BP 142/91; PULSE 96; RESP 18; TEMP 36.1; O2SAT 96
[2024-11-13] MEDS: Albuterol/Iprat 2.5/0.5MG 3 ML AMPUL.NEB INHALE ×4 (04:42→15:05)
[2024-11-13] MEDS: cefTRIAXone sodium 1 GM VIAL IVPUSH (04:43)
[2024-11-13] MEDS: Omeprazole 20 MG CAPSULE.DR PO (04:43)
[2024-11-13] MEDS: QUEtiapine Fumarate 25 MG TABLET PO (04:48)
[2024-11-13 07:06] VITALS: BP 177/85; PULSE 89; RESP 18; TEMP 36.6; O2SAT 98
[2024-11-13 07:15] LABS: Glucose, Whole Blood 254 mg/dL (60-115)
[2024-11-13 07:36] VITALS: PULSE 113; RESP 18; O2SAT 94
--- NOTE | 2024-11-13 07:55 | P.PNIM_ITS ---
Subjective Subjective Date of Service: 11/14/24 Review of Systems Review of Systems: Yes all other systems are reviewed and are negative Physical Exam 2 Vital Signs: Vital Signs: Last Vital Signs Temp 97.9 F 11/13/24 07:06 Pulse 113 H 11/13/24 07:36 Resp 18 11/13/24 07:36 BP 177/85 H 11/13/24 07:06 Pulse Ox 98 11/13/24 07:06 O2 Del Method Oxymask 11/13/24 07:06 O2 Flow Rate 3 11/13/24 07:06 BMI result Body Mass Index 32.0 Objective Data Active Medications Acetaminophen (Acetaminophen 325 Mg Tablet) 650 mg PO Q6H PRN PRN Reason: Pain, Mild 1-3,fever,headache Acetaminophen (Acetaminophen 325 Mg Tablet) 650 mg PO Q6H PRN PRN Reason: Pain, Moderate(Pain Scale 4-6) Albuterol/Ipratropium (Albuterol/Iprat 2.5/0.5mg 3 Ml Ampul.Neb) 3 ml INHALE Q4H PRN PRN Reason: Shortness of Breath/Wheezing Last Admin: 11/13/24 04:42 Dose: 3 ml Documented By: CARRI Albuterol/Ipratropium (Albuterol/Iprat 2.5/0.5mg 3 Ml Ampul.Neb) 3 ml INHALE RQ4H WHILE AWAKE [facility] Last Admin: 11/13/24 07:34 Dose: 3 ml Documented By: REHANA Aspirin (Aspirin Enteric Coated 81 Mg Tablet.) 81 mg PO DAILY [facility] Atorvastatin Calcium (Atorvastatin Calcium 40 Mg Tablet) 40 mg PO BEDTIME [facility] Last Admin: 11/12/24 20:20 Dose: 40 mg Documented By: CARRI Calcium Carbonate (Calcium Carbonate 750 Mg Tab.Chew) 750 mg PO Q4H PRN PRN Reason: Heartburn Calcium Carbonate/Cholecalciferol (Calcium + Vitamin D 250 Mg Tablet) 250 mg PO DAILY [facility] Ceftriaxone Sodium (Ceftriaxone Sodium 1 Gm Vial) 1 gm IVPUSH 0600 [facility] Last Admin: 11/13/24 04:43 Dose: 1 gm Documented By: CARRI Dextrose (Dextrose 50 % 25 Gm/50 Ml Syringe) 25 gm IVPUSH Q15M PRN; Protocol PRN Reason: per Hypoglycemia Standing Ord. Enoxaparin Sodium (Enoxaparin Sodium 40 Mg/0.4 Ml Syringe) 40 mg SUBCUT Q24H [facility] Last Admin: 11/12/24 08:19 Dose: 40 mg Documented By: SOFIE Furosemide (Furosemide 20 Mg Tablet) 20 mg PO DAILY [facility]; Protocol Gabapentin (Gabapentin 400 Mg Capsule) 800 mg PO QID [facility] Last Admin: 11/12/24 20:20 Dose: 800 mg Documented By: CARRI Glipizide (Glipizide 5 Mg Tablet) 5 mg PO DAILY [facility] Glucose (Glucose Gel 15 Gm Gel..Gram.) 15 gm PO Q15M PRN; Protocol PRN Reason: per Hypoglycemia Standing Ord. Guaifenesin (Guaifenesin 200 Mg/10 Ml 10 Ml Liquid) 10 ml PO Q6H PRN PRN Reason: Cough Ibuprofen (Ibuprofen 800 Mg Tablet) 800 mg PO BID PRN PRN Reason: Headache Insulin Human Lispro (Insulin Lispro 100 Unit/Ml 3 Ml Vial) 0 unit SUBCUT QIDACHS [facility]; Protocol Last Admin: 11/12/24 20:21 Dose: 6 unit Documented By: CARRI Loratadine (Loratadine 10 Mg Tablet) 180 mg PO DAILY [facility] Losartan Potassium (Losartan Potassium 50 Mg Tablet) 50 mg PO DAILY [facility]; Protocol Magnesium Hydroxide (Milk Of Magnesia 30 Ml Oral.Susp) 30 ml PO DAILY PRN PRN Reason: Constipation Melatonin (Melatonin 3 Mg Tablet) 6 mg PO BEDTIME PRN PRN Reason: Insomnia Last Admin: 11/12/24 20:20 Dose: 6 mg Documented By: CARRI Methylprednisolone Sodium Succinate (Methylprednisolone Sod Succ 40 Mg/Ml Vial) 40 mg IVPUSH Q12H [facility] Last Admin: 11/12/24 23:57 Dose: 40 mg Documented By: CARRI Nicotine (Nicotine 21 Mg Patch.Td24) 21 mg TRANSDERMA Q24H [facility] Last Admin: 11/12/24 13:23 Dose: 21 mg Documented By: SOFIE Omeprazole (Omeprazole 20 Mg Capsule.) 20 mg PO DAILY@06 [facility] Last Admin: 11/13/24 04:43 Dose: 20 mg Documented By: CARRI Omeprazole (Omeprazole 20 Mg Capsule.) 20 mg PO DAILY@06 [facility] Last Admin: 11/13/24 04:44 Dose: Not Given Documented By: CARRI Non-Admin Reason: Duplicate Order Ondansetron HCl (Ondansetron Hcl 4 Mg/2 Ml Vial) 4 mg IVPUSH Q8H PRN PRN Reason: Nausea and Vomiting Quetiapine Fumarate (Quetiapine Fumarate 25 Mg Tablet) 25 mg PO BEDTIME [facility] Last Admin: 11/12/24 20:20 Dose: 25 mg Documented By: CARRI Quetiapine Fumarate (Quetiapine Fumarate 25 Mg Tablet) 25 mg PO DAILY PRN PRN Reason: racing thoughts Last Admin: 11/13/24 04:48 Dose: 25 mg Documented By: CARRI Senna (Sennosides 8.6 Mg Tablet) 17.2 mg PO BEDTIME [facility] Last Admin: 11/12/24 20:20 Dose: 17.2 mg Documented By: CARRI Sertraline HCl (Sertraline Hcl 25 Mg Tablet) 25 mg PO DAILY [facility] Sertraline HCl (Sertraline Hcl 50 Mg Tablet) 100 mg PO DAILY [facility] Sodium Chloride (0.9 % Sodium Chloride Flush 3 Ml Syringe) 3 ml IVFLUSH QSHIFT [facility] Last Admin: 11/12/24 23:59 Dose: 3 ml Documented By: CARRI Theophylline (Theophylline Anhydrous Er 400 Mg Tab.Er.24h) 400 mg PO BID [facility] Last Admin: 11/12/24 20:20 Dose: 400 mg Documented By: CARRI Tizanidine HCl (Tizanidine Hcl 4 Mg Tablet) 4 mg PO Q12H [facility] Last Admin: 11/12/24 23:58 Dose: 4 mg Documented By: CARRI Labs 11/12/24 07:46 11/12/24 07:46 Labs: Laboratory Results - last 24 hr 11/12/24 11/12/24 11/12/24 07:46 11:03 12:57 MCV 78.0 L MCH 22.6 L MCHC 29.0 L RDW 18.6 H Plt Count 486 H MPV 9.1 L Immature Gran % (Auto) 0.4 Neut % (Auto) 95.7 H Lymph % (Auto) 2.9 L [place] % (Auto) 0.9 L Eos % (Auto) 0.0 Baso % (Auto) 0.1 Lymph # (Auto) 0.4 L [place] # (Auto) 0.1 Eos # (Auto) 0.0 Baso # (Auto) 0.0 Abs Immat Gran (auto) 0.06 H Absolute Neuts (auto) 13.0 H Absolute Nucleated RBC 0.000 Nucleated RBC % (auto) 0.0 Smear Tech's Comments VERIFIED Anion Gap 19 Estim Creat Clear Calc 46.6 Estimated GFR 48 POC Glucose 136 H 191 H Random Glucose 387 H* Calcium 8.9 Total Bilirubin 0.2 AST 14 ALT 17 Alkaline Phosphatase 72 Total Protein 6.6 Albumin 4.1 11/12/24 11/12/24 11/12/24 16:07 19:49 22:11 MCV MCH MCHC RDW Plt Count MPV Immature Gran % (Auto) Neut % (Auto) Lymph % (Auto) [place] % (Auto) Eos % (Auto) Baso % (Auto) Lymph # (Auto) [place] # (Auto) Eos # (Auto) Baso # (Auto) Abs Immat Gran (auto) Absolute Neuts (auto) Absolute Nucleated RBC Nucleated RBC % (auto) Smear Tech's Comments Anion Gap Estim Creat Clear Calc Estimated GFR POC Glucose 118 H 255 H 203 H Random Glucose Calcium Total Bilirubin AST ALT Alkaline Phosphatase Total Protein Albumin 11/13/24 07:01 MCV MCH MCHC RDW Plt Count MPV Immature Gran % (Auto) Neut % (Auto) Lymph % (Auto) [place] % (Auto) Eos % (Auto) Baso % (Auto) Lymph # (Auto) [place] # (Auto) Eos # (Auto) Baso # (Auto) Abs Immat Gran (auto) Absolute Neuts (auto) Absolute Nucleated RBC Nucleated RBC % (auto) Smear Tech's Comments Anion Gap Estim Creat Clear Calc Estimated GFR POC Glucose 254 H Random Glucose Calcium Total Bilirubin AST ALT Alkaline Phosphatase Total Protein Albumin Microbiology Microbiology Results: Microbiology 11/12/24 01:26 Blood Culture - Preliminary Blood - Venous No growth after 24 hours. 11/12/24 01:15 Blood Culture - Preliminary Blood - Venous No growth after 24 hours. Assessment and Plan (1) COPD exacerbation: Status: Acute Quality Stroke Does the patient have a stroke diagnosis?: No Reason for No Anti-thrombotic by Day Two: N/A - Med Ordered VTE Prior VTE?: No VTE Risk Level:: Medical - moderate - high VTE Device Contraindication: N/A - Device Ordered VTE Drug Contraindication: N/A - Med Ordered
[2024-11-13] MEDS: Insulin Lispro 100 UNIT/ML 3 ML VIAL SUBCUT (08:20)
[2024-11-13] MEDS: Aspirin Enteric Coated 81 MG TABLET.DR PO (08:21)
[2024-11-13] MEDS: Sertraline HCL 25 MG TABLET PO (08:21)
[2024-11-13] MEDS: Losartan Potassium 50 MG TABLET PO (08:21)
[2024-11-13] MEDS: Furosemide 20 MG TABLET PO (08:21)
[2024-11-13] MEDS: Gabapentin 400 MG CAPSULE 800 MG PO ×2 (08:21→13:56)
[2024-11-13] MEDS: Sertraline HCL 50 MG TABLET 100 MG PO (08:21)
[2024-11-13] MEDS: Enoxaparin Sodium 40 MG/0.4 ML SYRINGE SUBCUT (08:21)
[2024-11-13] MEDS: Calcium + Vitamin D 250 MG TABLET PO (08:22)
[2024-11-13] MEDS: Theophylline Anhydrous ER 400 MG TAB.ER.24H PO (08:22)
[2024-11-13] MEDS: glipiZIDE 5 MG TABLET PO (08:22)
[2024-11-13] MEDS: 0.9 % Sodium Chloride Flush 3 ML SYRINGE IVFLUSH (08:23)
[2024-11-13 11:04] VITALS: BP 142/77; PULSE 100; PULSE 87; RESP 16; RESP 18; TEMP 36.2; O2SAT 90
[2024-11-13 11:20] LABS: Glucose, Whole Blood 50 mg/dL (60-115)
[2024-11-13 11:20] LABS: Glucose, Whole Blood 46 mg/dL (60-115)
[2024-11-13 11:44] LABS: Glucose, Whole Blood 236 mg/dL (60-115)
--- NOTE | 2024-11-13 13:50 | MHC.CM.PN ---
Addendum entered by Josy Rodgers 11/13/24 14:16: CORRECTION! Patient is active with [facility], who has been made aware of today's dc. MD is aware. Original Note: Patient has been medically cleared for dc to home today, self care.
[2024-11-13] MEDS: Nicotine 21 MG PATCH.TD24 TRANSDERMA (13:54)
[2024-11-13] MEDS: TiZANidine HCL 4 MG TABLET PO (13:55)
[2024-11-13] MEDS: Amoxicillin/Potassium Clav 500 MG TABLET PO (13:55)
[2024-11-13] MEDS: Loratadine 10 MG TABLET PO (13:56)
--- NOTE | 2024-11-13 13:59 | W.PM.IDCN ---
History of Present Illness Data of Consult Service Date: 11/13/24 Requesting physician: Nasrin Burton Primary Care Provider: Joe Hale ASSISTANT TO THE VICE PRESIDENT- HPI Reason for consult: RLL infiltrate She presents with shortness of breath and cough. She has RML and RLL infiltrate. She has yellowish sputum still but is on baseline oxygen. Review of Systems Review of Systems: Yes all other systems are reviewed and are negative [facility]LY [facility] Past Medical History Medical History Cocaine use disorder Cocaine abuse GERD (gastroesophageal reflux disease) Constipation Non-insulin dependent type 2 diabetes mellitus HENRY (obstructive sleep apnea) Acute exacerbation of chronic obstructive airways disease Asthma with exacerbation Obesity hypoventilation syndrome COPD (chronic obstructive pulmonary disease) Chronic lung disease Hypoxic respiratory failure Nocturnal hypoxemia Diabetes mellitus COPD exacerbation Crack cocaine use Hyperkalemia Metabolic acidosis Leukocytosis Chest discomfort Chronic renal failure, stage 2 (mild) SOB (shortness of breath) Asthma Smoker Rotator cuff tendonitis GERD (gastroesophageal reflux disease) Chronic idiopathic constipation Bustos's esophagus Depression High triglycerides Gastroparesis Carpal tunnel syndrome of right wrist Nausea & vomiting Hernia Acute and chronic respiratory failure, unspecified whether with hypoxia or hypercapnia HTN (hypertension) Obesity (BMI 30-39.9) Knee pain, bilateral Family History Family History Father Heart disease HENRY (obstructive sleep apnea) Family history of breast cancer Mother Asthma Emphysema, unspecified Bronchitis Smoker Alcoholism Bone marrow disease Maternal Grandmother Diabetes Family history: reviewed and not pertinent Surgical History Surgical History History of cholecystectomy (~1988) History of carpal tunnel release Hx of tubal ligation History of pubovaginal sling (~2015) History of umbilical hernia repair (~2001) Hx of section History of open reduction and internal fixation (ORIF) procedure History of esophagogastroduodenoscopy (EGD) Social History Social History Household Members: Family Household Members Other:: sister Housing: House Are you a primary manager care to a significant other at home: No Unable to assess alcohol history related to: Unknown Alcohol intake: unknown Comment: Sleeping Patient Tobacco Use Status: Former Tobacco user Tobacco use type: Cigarette Cigarette Packs Per Day: 0.5 Cigarettes Per Day: 10.0 Years Smoked: 40? Smoked in Last 30 Days: Yes e-Cigarette/Vaping Use: Never Used Use of substances other than those prescribed or required for medical reasons: Yes Substance Use Type: Crack/Cocaine Substance Use Frequency: Daily Currently Displaying Signs/Symptoms of Drug Intoxication Withdrawal: No Have you been hit, kicked, punched, or otherwise hurt by someone within the past year? If so, by whom?: No Do you feel safe in your current relationship?: No Current Relationship Is there a partner from a previous relationship who is making you feel unsafe now?: No Are you made to feel afraid or neglected: No Protestant Healthcare Practices: n/a Advance Directives: Yes Advance Directives on File: Yes Advance Directives Date on File: 12/19/23 Do you have a plan to hurt others: No Plan Recently lost weight without trying: No Nutrition Risks: No Nutritional Risk Patient : No : No service: No Current occupational status: disabled 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 Travel History Ebola Risk: Travel/Contact With Anyone From Affected Area/s: No Has Patient Experienced Ebola Symptoms: No Meds Allergies Allergy/AdvReac Type Severity Reaction Status Date / Time doxycycline Allergy Severe Swelling Verified 11/12/24 01:04 varenicline [From CHANTIX] Allergy Severe ANAPHYLAXIS Verified 11/12/24 01:04 azithromycin Allergy Intermediate Rash Verified 11/12/24 01:04 barium sulfate Allergy Intermediate angioedema Verified 11/12/24 01:04 cetirizine Allergy Mild Rash Verified 11/12/24 01:04 famotidine Allergy Mild Rash Verified 11/12/24 01:04 linaclotide [Linzess] Allergy Mild Rash Verified 11/12/24 01:04 Active Medications: Current Medications Acetaminophen (Acetaminophen 325 Mg Tablet) 650 mg PO Q6H PRN PRN Reason: Pain, Mild 1-3,fever,headache Acetaminophen (Acetaminophen 325 Mg Tablet) 650 mg PO Q6H PRN PRN Reason: Pain, Moderate(Pain Scale 4-6) Albuterol/Ipratropium (Albuterol/Iprat 2.5/0.5mg 3 Ml Ampul.Neb) 3 ml INHALE Q4H PRN PRN Reason: Shortness of Breath/Wheezing Last Admin: 11/13/24 04:42 Dose: 3 ml Albuterol/Ipratropium (Albuterol/Iprat 2.5/0.5mg 3 Ml Ampul.Neb) 3 ml INHALE RQ4H WHILE AWAKE [facility] Last Admin: 11/13/24 11:03 Dose: 3 ml Amoxicillin/Clavulanate Potassium (Amoxicillin/Potassium Clav 500 Mg Tablet) 500 mg PO Q12H [facility] Last Admin: 11/13/24 13:55 Dose: 500 mg Aspirin (Aspirin Enteric Coated 81 Mg Tablet.Dr) 81 mg PO DAILY [facility] Last Admin: 11/13/24 08:21 Dose: 81 mg Atorvastatin Calcium (Atorvastatin Calcium 40 Mg Tablet) 40 mg PO BEDTIME [facility] Last Admin: 11/12/24 20:20 Dose: 40 mg Calcium Carbonate (Calcium Carbonate 750 Mg Tab.Chew) 750 mg PO Q4H PRN PRN Reason: Heartburn Calcium Carbonate/Cholecalciferol (Calcium + Vitamin D 250 Mg Tablet) 250 mg PO DAILY [facility] Last Admin: 11/13/24 08:22 Dose: 250 mg Dextrose (Dextrose 50 % 25 Gm/50 Ml Syringe) 25 gm IVPUSH Q15M PRN; Protocol PRN Reason: per Hypoglycemia Standing Ord. Enoxaparin Sodium (Enoxaparin Sodium 40 Mg/0.4 Ml Syringe) 40 mg SUBCUT Q24H [facility] Last Admin: 11/13/24 08:21 Dose: 40 mg Furosemide (Furosemide 20 Mg Tablet) 20 mg PO DAILY [facility]; Protocol Last Admin: 11/13/24 08:21 Dose: 20 mg Gabapentin (Gabapentin 400 Mg Capsule) 800 mg PO QID [facility] Last Admin: 11/13/24 13:56 Dose: 800 mg Glipizide (Glipizide 5 Mg Tablet) 5 mg PO DAILY [facility] Last Admin: 11/13/24 08:22 Dose: 5 mg Glucose (Glucose Gel 15 Gm Gel..Gram.) 15 gm PO Q15M PRN; Protocol PRN Reason: per Hypoglycemia Standing Ord. Guaifenesin (Guaifenesin 200 Mg/10 Ml 10 Ml Liquid) 10 ml PO Q6H PRN PRN Reason: Cough Ibuprofen (Ibuprofen 800 Mg Tablet) 800 mg PO BID PRN PRN Reason: Headache Insulin Human Lispro (Insulin Lispro 100 Unit/Ml 3 Ml Vial) 0 unit SUBCUT QIDACHS [facility]; Protocol Last Admin: 11/13/24 12:20 Dose: Not Given Loratadine (Loratadine 10 Mg Tablet) 10 mg PO DAILY [facility] Last Admin: 11/13/24 13:56 Dose: 10 mg Losartan Potassium (Losartan Potassium 50 Mg Tablet) 50 mg PO DAILY [facility]; Protocol Last Admin: 11/13/24 08:21 Dose: 50 mg Magnesium Hydroxide (Milk Of Magnesia 30 Ml Oral.Susp) 30 ml PO DAILY PRN PRN Reason: Constipation Melatonin (Melatonin 3 Mg Tablet) 6 mg PO BEDTIME PRN PRN Reason: Insomnia Last Admin: 11/12/24 20:20 Dose: 6 mg Nicotine (Nicotine 21 Mg Patch.Td24) 21 mg TRANSDERMA Q24H [facility] Last Admin: 11/13/24 13:54 Dose: 21 mg Omeprazole (Omeprazole 20 Mg Capsule.Dr) 20 mg PO DAILY@0630 [facility] Last Admin: 11/13/24 04:43 Dose: 20 mg Ondansetron HCl (Ondansetron Hcl 4 Mg/2 Ml Vial) 4 mg IVPUSH Q8H PRN PRN Reason: Nausea and Vomiting Prednisone (Prednisone 20 Mg Tablet) 40 mg PO DAILY [facility] Quetiapine Fumarate (Quetiapine Fumarate 25 Mg Tablet) 25 mg PO BEDTIME [facility] Last Admin: 11/12/24 20:20 Dose: 25 mg Quetiapine Fumarate (Quetiapine Fumarate 25 Mg Tablet) 25 mg PO DAILY PRN PRN Reason: racing thoughts Last Admin: 11/13/24 04:48 Dose: 25 mg Senna (Sennosides 8.6 Mg Tablet) 17.2 mg PO BEDTIME [facility] Last Admin: 11/12/24 20:20 Dose: 17.2 mg Sertraline HCl (Sertraline Hcl 25 Mg Tablet) 25 mg PO DAILY [facility] Last Admin: 11/13/24 08:21 Dose: 25 mg Sertraline HCl (Sertraline Hcl 50 Mg Tablet) 100 mg PO DAILY [facility] Last Admin: 11/13/24 08:21 Dose: 100 mg Sodium Chloride (0.9 % Sodium Chloride Flush 3 Ml Syringe) 3 ml IVFLUSH QSHIFT [facility] Last Admin: 11/13/24 08:23 Dose: 3 ml Theophylline (Theophylline Anhydrous Er 400 Mg Tab.Er.24h) 400 mg PO BID [facility] Last Admin: 11/13/24 08:22 Dose: 400 mg Tizanidine HCl (Tizanidine Hcl 4 Mg Tablet) 4 mg PO Q12H [facility] Last Admin: 11/13/24 13:55 Dose: 4 mg Home Medications ?Medication ?Instructions ?Recorded ?Confirmed ?Last Taken ?Type tizanidine 4 mg tablet 4 mg PO Q12H muscle spasm 10/21/24 11/12/24 10/20/24 History quetiapine 25 mg tablet (Seroquel) 25 mg PO BEDTIME hallucinations 11/12/24 11/12/24 Unknown History quetiapine 25 mg tablet (Seroquel) 25 mg PO DAILY PRN racing thoughts 11/12/24 11/12/24 Unknown History sertraline 100 mg tablet 100 mg PO DAILY 11/12/24 11/12/24 Unknown History sertraline 25 mg tablet 25 mg PO DAILY 11/12/24 11/12/24 Unknown History Physical Exam Vital Signs: Vital Signs: Last Vital Signs Temp 97.1 F 11/13/24 11:04 Pulse 100 11/13/24 11:04 Resp 16 11/13/24 11:04 BP 142/77 H 11/13/24 11:04 Pulse Ox 90 L 11/13/24 11:04 O2 Del Method Room Air 11/13/24 11:04 O2 Flow Rate 3 11/13/24 07:06 BMI result Body Mass Index 32.0 Const: General: cooperative HEENT: Head: Yes normal to inspection Face and sinus: Yes normal facial exam Mouth: Normal oral and palatal mucosa present Teeth and gingiva: dentition normal Eyes: General: appearance normal, both eyes and all related structures Pupils: Equal, round and reactive pupils present Resp: Effort & Inspection: normal respiratory effort Cardio: Rate: regular rate Rhythm: regular rhythm GI: Palpation (GI): Soft to palpation and nontender : General: Yes no CVA tenderness Back/Spine/Pelvis: Back: no CVA tenderness Skin: General skin exam: no rashes or lesions noted Neuro: General: moves all extremities Cranial nerves: Yes Equal, round and reactive pupils present Extrem: General: Yes normal to inspection Psych: Appearance: grossly normal Results Labs 11/12/24 07:46 11/12/24 07:46 Microbiology Microbiology Results: Microbiology 11/12/24 Unknown Urine clean catch - Clean Catch Midstream Urine Culture - Final 11/12/24 01:26 Blood - Venous Blood Culture - Preliminary No growth after 24 hours. 11/12/24 01:15 Blood - Venous Blood Culture - Preliminary No growth after 24 hours. Assessment and Plan (1) COPD exacerbation: Status: Acute (2) Acute respiratory failure with hypoxia and hypercarbia: Status: Acute Plan Would finish care with seven days po Augmentin as outpatient.
--- NOTE | 2024-11-13 13:59 | PM.DS ---
DS: Providers Provider Date of Service: 11/13/24 Date of admission: 11/12/24 03:03 Date of discharge: 11/13/24 Primary care physician: DOTTY Lazcano Consults: 11/12/24 03:56 Addiction Medicine Provider Routine Consulting Provider: Addiction Covering Reason for consultation: crack cocaine use, prompting freq admissions with chronic lung disease Has provider been notified: No 11/12/24 12:30 Consult to Infectious Diseases Routine Consulting Provider: [facility] Reason for consultation: pneumonia Has provider been notified: No 11/13/24 08:48 Inpt - Recovery Team Routine Comment: Reason for consultation: cocaine use d/o, substance use eval Attending physician on discharge: Nasrin Burton Discharging clinician: Nasrin Burton DS: Diagnosis Discharge Diagnosis (1) COPD exacerbation: Status: Acute DS: Summary Hospital Course Hospital Course: HPI:54-year-old female with past medical history severe asthma/COPD on home O2 2-3 L, HENRY noncompliant with nocturnal BiPAP, substance abuse to include crack cocaine, systolic congestive heart failure, hypertension, obesity was brought in by ambulance with report of ongoing dyspnea and associated chest pain after smoking crack cocaine all day 11/11. Pt stated friend that came over to do drugs gave her the RHINO FlU. Patient did attempt to use rescue inhaler at home with no relief. When EMS arrived patient's pulse ox was 90% on room air and 96% on duo neb. patient states she has been using her BiPAP at night. troponin 27.5 and BNP 62. EKG sinus tachycardia with premature ventricular complexes versus fusion complexes and right ventricular hypertrophy. Patient was recently admitted and discharged from October 30 through November 06 and required critical care intervention including intubation due to her overall respiratory distress. All viral studies are negative currently. Toxicology screen pending. Chest x-ray pending. Patient did receive methylprednisolone in the ED and is currently on 2 L nasal cannula allowing for admission to the floor on telemetry. Patient does have a leukocytosis on daily prednisone coming in but is afebrile and denies any fever or chills. Patient currently denies any chest pain, headache, visual changes or abdominal pain. Patient states constipation is stable since being discharged on November 06. Patient extremely restless but alert and orientated x3. Patient believes this is due to the use of crack cocaine most of the day yesterday. Patient denies any other illicit drug use in the last 24 hours. Patient was also given Seroquel at some point and states that this medication made her paranoid. Patient states she was prescribed seroquel from an outside provider since her discharge November 06 from this hospital. Patient is willing to see addictions this admission. Hospital course: 54-year-old female with past medical history severe asthma/COPD on home O2 2-3 L, HENRY noncompliant with nocturnal BiPAP, substance abuse to include cocaine, systolic congestive heart failure, hypertension: Patient was admitted for acute hypoxemic/hypercarbic respiratory failure with pneumonia and COPD exacerbation, cocaine use: viral studies negative, chest x-ray shows possible RLL consolidation, blood cultures sent:patient started on IV antibiotics, nebs, steroids: With above supportive care patient seems to be improved significantly, shortness of breath improved, patient says that she said her baseline now. Sats are in 90 range . blood cultures negative @48hrs ,urine cultures -mixed.no urinary complaints. Patient was strongly advised to abstain from cocaine and smoking .addiction team seen the patient and information. Patient is seems significantly better, eager to go home, will send patient home with p.o. prednisone 40 mg daily, Augmentin 875 mg p.o. b.i.d. for 7 days. hx dm: fs invarible 50's but no symptoms :she was eencourged for po intake, monitor fingersticks, diabetic education given, most of her fingersticks are between 120-200 range. Consider checking hemoglobin A1c outpatient. plan: Tobacco dependence ane cocaine use:patient counseled on the benefits of smoking and cocaine cessation,added nicotein patch. Prednisone 40 mg daily for 4 days Augmentin 875 mg p.o. b.i.d. for 7 days, chest imaging 3-4 weeks to see resolution pneumonia. Monitor fingersticks closely, diabetic education given, check Hba1c levels outpatient. Encouraged for p.o. intake.added glucogel/glucagon . if fs stay lower than 100 -consider holding glipizide . Follow-up with PCP outpatient. If any new symptoms of shortness of breath or fever or any hypoglycemic symptoms-go to the nearest emergency room. Above management discussed with the patient in detail length, patient understand and in agreement with the above plan, all questions answered, time spent 40 minute. Staff was present during the conversation. Time Attestation Total time managing care of this patient today: 40 mintues. Discharge Coordination Time (in mins): 40 min Quality: Safe Use of Opioids Does Pt have an Active Cancer Diagnosis on the Problem List?: No Quality: Stroke Does the patient have a stroke diagnosis?: No Physical Exam Vital Signs: Vital Signs: Last Vital Signs Temp 97.1 F 11/13/24 11:04 Pulse 100 11/13/24 11:04 Resp 16 11/13/24 11:04 BP 142/77 H 11/13/24 11:04 Pulse Ox 90 L 11/13/24 11:04 O2 Del Method Room Air 11/13/24 11:04 O2 Flow Rate 3 11/13/24 07:06 BMI result Body Mass Index 32.0 Appearance: Alert.? Oriented X3.? cvs: rrr, [id number] . res: clear to fair , no rales or wheezing abd: no rebound or guarding ,nt, bs present. ext pulses present , no cyanosis . neuro: axo3 , nonfocal. DS: Data Data Completed and Pending Completed studies during hospitalization [Text1]: Procedures Assistance with Respiratory Ventilation, 24-96 Consecutive Hours, Continuous Positive Airway Pressure (10/30/24) Assistance with Respiratory Ventilation, Less than 24 Consecutive Hours, Continuous Positive Airway Pressure (10/21/24) Insertion of Endotracheal Airway into Trachea, Via Natural or Artificial Opening (10/30/24) Insertion of Infusion Device into Superior Vena Cava, Percutaneous Approach (11/03/20) Introduction of Vasopressor into Peripheral Vein, Percutaneous Approach (10/30/24) Respiratory Ventilation, Less than 24 Consecutive Hours (10/30/24) Labs on day of discharge: Laboratory Results - last 24 hr 11/12/24 11/12/24 11/12/24 16:07 19:49 22:11 POC Glucose 118 H 255 H 203 H 11/13/24 11/13/24 11/13/24 07:01 11:13 11:16 POC Glucose 254 H 50 L* 46 L* 11/13/24 11:40 POC Glucose 236 H Preliminary micro results at discharge 11/12/24 01:26 Blood Culture - Preliminary Blood - Venous No growth after 24 hours. 11/12/24 01:15 Blood Culture - Preliminary Blood - Venous No growth after 24 hours. Imaging Chest x-ray: My impression: cxr: There is a questionable developing consolidation at the right lower lung. Discharge Plan Discharge Anticipated Discharge Date/Time: 11/13/24 13:36 Patient Disposition: Home Health Service Discharge Diagnosis: copd exacerbation ,pneumonia Referrals: Loren DUTTA [Outside] - 1 Week Joe Hale FNP-BC [Primary Care Provider] - 1 Week Discharge Medications: New prednisone 20 mg Tablet 40 mg PO DAILY Qty: 4 0RF amoxicillin-pot clavulanate 500-125 mg Tablet 1 tab PO Q12H Qty: 14 0RF dextrose [Glucose Gel] 40 % gel 10 g PO Q15M PRN (Reason: hypoglycemia) Qty: 300 0RF Rx Instructions: until symptoms of low blood sugar are controlled glucagon HCl [Glucagon (HCl) Emergency Kit] 1 mg recon soln 1 mg subcut Q20M PRN (Reason: hypoglycemia) Qty: 1 0RF Rx Instructions: until target blood sugar attained Continued (DME) cane Device See Rx Instructions .Route Qty: 1 0RF Rx Instructions: Standard cane (DME) Rollator walker See Rx Instructions .Route .MEDSUPPLY Qty: 1 0RF Rx Instructions: As directed (DME) pulse oximeter See Rx Instructions .Route .MEDSUPPLY Qty: 1 0RF Rx Instructions: As directed (DME) FreeStyle Jemima 3 Plus Sensor Device See Rx Instructions .Route Qty: 2 5RF Rx Instructions: To monitor blood sugars 4 times per day. Change sensor every 15 days (DME) FreeStyle Jemima 3 [place] Misc See Rx Instructions .Route Qty: 1 0RF Rx Instructions: To monitor blood sugar 4 times per day albuterol sulfate 2.5 mg /3 mL (0.083 %) solution for nebulization 2.5 mg inhalation Q4H PRN (Reason: Shortness Of Breath/Wheezing) Qty: 180 6RF theophylline 400 mg tablet extended release 24 hr 400 mg PO BID 90 Days Qty: 180 4RF albuterol sulfate [Ventolin HFA] 90 mcg/actuation HFA aerosol inhaler 2 puff inhalation Q6H PRN (Reason: for wheezing) Qty: 1 6RF acetaminophen 650 mg tablet extended release 650 mg PO Q12H PRN (Reason: pain) 30 Days Qty: 60 0RF aspirin 81 mg tablet,delayed release (DR/EC) 81 mg PO DAILY 90 Days Qty: 90 1RF atorvastatin 40 mg tablet 40 mg PO BEDTIME Qty: 90 0RF (DME) FreeStyle Lite Strips Strip See Rx Instructions .ROUTE .MEDSUPPLY Qty: 100 1RF Rx Instructions: Use to check blood sugar daily or if symptomatic hypo/hypergylcemia calcium carbonate-vitamin D3 500 mg-10 mcg (400 unit) tablet 1 tab PO DAILY Qty: 90 0RF (DME) 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 meter [FreeStyle Lite Meter] Kit See Rx Instructions .ROUTE .MEDSUPPLY Qty: 1 0RF Rx Instructions: Use to check blood sugar daily or if symptomatic for hypo/hyperglycemia esomeprazole magnesium 40 mg capsule,delayed release(DR/EC) 40 mg PO DAILY@0630 Qty: 90 1RF fexofenadine [Elisabeth Allergy] 180 mg tablet 180 mg PO DAILY Qty: 30 3RF furosemide 20 mg tablet 20 mg PO DAILY Qty: 90 3RF gabapentin 800 mg tablet 800 mg PO QID 30 Days Qty: 120 1RF glipizide 5 mg tablet 5 mg PO DAILY Qty: 90 1RF glucose 4 gram tablet,chewable 16 g PO Q15M MDD 8 tabs PRN (Reason: hypoglycemia) Qty: 100 1RF Rx Instructions: until symptoms of low blood sugar are controlled ibuprofen 800 mg tablet 800 mg PO BID PRN (Reason: Headache) 30 Days Qty: 60 0RF Rx Instructions: please use sparingly due to diabetes ipratropium-albuterol 0.5 mg-3 mg(2.5 mg base)/3 mL solution for nebulization 3 ml INHALATION TID Qty: 180 0RF (DME) lancets [FreeStyle Lancets] 28 gauge misc See Rx Instructions .ROUTE .MEDSUPPLY Qty: 100 1RF Rx Instructions: Use to check blood sugar daily or if symptomatic hypo/hypergylcemia losartan 50 mg tablet 50 mg PO DAILY Qty: 90 0RF Stiolto Respimat 2.5-2.5 mcg/actuation mist 2 puff INHALATION DAILY Qty: 4 0RF prednisone 10 mg tablet 10 mg PO DIRECTED Qty: 50 0RF Rx Instructions: Take 4 tabs daily for 5 days, then go down by 1 tab every 5 days codeine-guaifenesin 10-100 mg/5 mL liquid 10 ml PO Q4-6H PRN (Reason: cough) Qty: 473 0RF (DME) mary anne Marrufo See Rx Instructions .Route Qty: 1 0RF Rx Instructions: As directed sertraline 25 mg tablet 25 mg PO DAILY Rx Instructions: Taken with 100mg tab for TDD of 125mg. sertraline 100 mg tablet 100 mg PO DAILY Rx Instructions: TAKE WITH 25MG FOR TOTAL OF 125MG quetiapine [Seroquel] 25 mg tablet 25 mg PO BEDTIME quetiapine [Seroquel] 25 mg tablet 25 mg PO DAILY PRN (Reason: racing thoughts) nicotine 21 mg/24 hr patch 24 hour 1 patch transdermal Q24H Qty: 28 0RF tramadol 50 mg tablet 50 mg PO Q6H PRN (Reason: pain) Qty: 20 0RF tizanidine 4 mg tablet 4 mg PO Q12H Rx Instructions: do not take concurrently with famotidine Discharge Orders: Discharge Order (Routine); Ordered 11/13/24 Ordered By: Nasrin Burton Diet: Advance to usual diet Activity on Discharge: As tolerated Stand Alone Forms: Patient Portal Discharge page Print Language: Urdu Care Plan Goals: 54-year-old female with past medical history severe asthma/COPD on home O2 2-3 L, HENRY noncompliant with nocturnal BiPAP, substance abuse to include cocaine, systolic congestive heart failure, hypertension: Patient was admitted for acute hypoxemic/hypercarbic respiratory failure with pneumonia and COPD exacerbation, cocaine use: viral studies negative, chest x-ray shows possible RLL consolidation, blood cultures sent:patient started on IV antibiotics, nebs, steroids: With above supportive care patient seems to be improved significantly, shortness of breath improved, patient says that she said her baseline now. Sats are in 90 range . Patient was strongly advised to abstain from cocaine and smoking .addiction team seen the patient and information. Patient is seems significantly better, eager to go home, will send patient home with p.o. prednisone 40 mg daily, Augmentin 875 mg p.o. b.i.d. for 7 days. hx dm: fs invarible 50's but no symptoms :she was eencourged for po intake, monitor fingersticks, diabetic education given, most of her fingersticks are between 120-200 range. Consider checking hemoglobin A1c outpatient. Health Concerns: Prednisone 40 mg daily for 4 days Augmentin 875 mg p.o. b.i.d. for 7 days, chest imaging 3-4 weeks to see resolution pneumonia. Monitor fingersticks closely, diabetic education given. Encouraged for p.o. intake.added glucogel/glucagon . if fs consistently below 100 or new symptoms hold glipizide. Follow-up with PCP outpatient. Plan of Treatment: As above. Assessment: As above. Patient Instructions: Hypoglycemia in a Person with Diabetes (DC), Pneumonia (DC)
[2024-11-13 15:06] VITALS: PULSE 101; RESP 16; O2SAT 90
[2024-11-13] MEDS: predniSONE 20 MG TABLET 40 MG PO (15:06)
== END 2024-11-13 16:40 | disposition home health service (06) | DRG 140 ==
LOC: HO.ED 03:38 → HO.EDOVER 04:56 → HO.S3 07:14 → HO.EDOVER 08:13 → HO.IMC 14:49
PROVIDERS: Nurse Practitioner Family; Admitting Provider Student in an Organized Health Care Education/Training Program; Emergency Provider Emergency Medicine; PCP Nurse Practitioner Family; Visit Provider Internal Medicine
DX: J44.1 Chronic obstructive pulmonary disease with (acute) exacerbation (principal); J96.21 Acute and chronic respiratory failure with hypoxia; I50.32 Chronic diastolic (congestive) heart failure; I11.0 Hypertensive heart disease with heart failure; Z99.81 Dependence on supplemental oxygen; E11.9 Type 2 diabetes mellitus without complications; K21.9 Gastro-esophageal reflux disease without esophagitis; J96.22 Acute and chronic respiratory failure with hypercapnia; F17.210 Nicotine dependence, cigarettes, uncomplicated; Z71.6 Tobacco abuse counseling; G47.33 Obstructive sleep apnea (adult) (pediatric); F14.10 Cocaine abuse, uncomplicated; F41.9 Anxiety disorder, unspecified; Z20.822 Contact with and (suspected) exposure to COVID-19; Z91.199 Patient's noncompliance with other medical treatment and regimen due to unspecified reason; Z79.82 Long term (current) use of aspirin; Z79.84 Long term (current) use of oral hypoglycemic drugs; Z79.899 Other long term (current) drug therapy
CPT/HCPCS: 0241U; 36415; 71045; 80053; 80307; 81001; 82248; 82803; 82947; 83605; 83690; 83880; 84484; 85025; 87040; 87086; 93005; 94640; 94660; 99285; J0696; J1650; J2270; J2919; J3475; S9485

== ENCOUNTER → 2024-11-12 01:00 | Outpatient (BNV) | payer OTHER, SELFPAY | PROVIDERS: Admitting Provider Student in an Organized Health Care Education/Training Program; Emergency Provider Emergency Medicine; Visit Provider Internal Medicine Cardiovascular Disease | DX: I51.7 Cardiomegaly (principal); R00.0 Tachycardia, unspecified | CPT/HCPCS: 93010 ==

== ENCOUNTER → 2024-11-12 01:01 | Outpatient (BNV) | payer OTHER, SELFPAY | PROVIDERS: Admitting Provider Student in an Organized Health Care Education/Training Program; Emergency Provider Emergency Medicine; Visit Provider Radiology Diagnostic Radiology | DX: R06.02 Shortness of breath (principal) | CPT/HCPCS: 71045 ==

== ENCOUNTER → 2024-11-12 02:49 | Outpatient (BNV) | payer OTHER, SELFPAY | PROVIDERS: Emergency Provider Emergency Medicine; Visit Provider Nurse Practitioner Family | DX: J44.1 Chronic obstructive pulmonary disease with (acute) exacerbation (principal) | CPT/HCPCS: 99223; 99239; 99499 ==

== ENCOUNTER → 2024-11-12 03:03 | Outpatient (BNV) | payer OTHER, SELFPAY | PROVIDERS: Admitting Provider Student in an Organized Health Care Education/Training Program; Emergency Provider Emergency Medicine; PCP Nurse Practitioner Family; Visit Provider Internal Medicine | DX: J44.1 Chronic obstructive pulmonary disease with (acute) exacerbation (principal); J96.01 Acute respiratory failure with hypoxia; J96.02 Acute respiratory failure with hypercapnia | CPT/HCPCS: 99222 ==

== ENCOUNTER 2024-11-18 04:30 | Observation (INO) | payer OTHER, SELFPAY ==
[2024-11-18] VITALS (17 sets, daily range): BP systolic 128–189; BP diastolic 49–88; PULSE 53–117; RESP 13–22; TEMP 36–36.7; O2SAT 93–100; BMI 36.4; BMI 34.8
--- NOTE | ~2024-11-18 | CT_ITS ---
EXAMINATION: CT CHEST WITHOUT CONTRAST CLINICAL INFORMATION: Abnormal findings on chest x-ray. Shortness of breath. COMPARISON: None available. TECHNIQUE: Multidetector volumetric CT imaging of the chest was done. Axial MIP volume rendering provided. Sagittal and coronal reformatted images were obtained. This CT examination was performed using dose optimization techniques as appropriate, variously including the following: *Automated exposure control *Adjustment of mA and/or kV according to patient size (this includes techniques or standardized protocols for targeted exams where dose is matched to indication/reason for exam; i.e. extremities or head) *Use of iterative reconstruction technique DLP: 340 mGy centimeter. FINDINGS: MANAGER COMM[employer]ION: Good inspiration. Multiple vascular clips in the right upper hemiabdomen and multiple metallic coils in a circumferential fashion overlapping the epigastric region. The upper extremities at the both sides of the head. Patient's large body habitus. LUNGS: Linear and patchy pulmonary opacities, lingula right middle lung lobe and to a lesser extent lung bases. Pulmonary mosaic pattern, subtle and bilaterally. No gross honeycombing. No gross bronchiectasis. Intraluminal attenuation within the mid to distal trachea. MEDIASTINUM: No lymphadenopathy. No pneumomediastinum. Calcified plaque thoracic aorta wall and its main branches without gross aneurysm. Calcified plaques in the coronary arteries. Small trace pericardial effusion. The visualized portions of the thyroid gland demonstrated no dominant nodule or enlargement. CORONARY ARTERY CALCIFICATION: Present. PLEURA: No pleural effusion. No pneumothorax. AXILLA: No lymphadenopathy. UPPER ABDOMEN: Status post cholecystectomy. Status post abdominal wall mesh placement epigastric region. Small accessory spleen. Small low-density nodules right adrenal gland measuring -22 Hounsfield units. Calcified plaques in the abdominal aorta wall mesenteric arteries and the splenic artery. OSSEOUS STRUCTURES: Old healed rib fractures with callus formation in the posterior and posterior lateral aspect of the ribs left hemithorax. Multilevel thoracic spondylosis without acute fracture or listhesis.. CT/CT chest wo IV con IMPRESSION: Subsegmental atelectasis versus scarring, right middle lung lobe lingula and lung bases. Concerning aspiration. Coronary artery disease and atherosclerosis disease. Multiple old healed rib fractures posterior and posterior lateral aspect ribs of the left hemithorax. Lipid rich adenoma, right adrenal gland. Fleischner guidelines were followed. Electronically signed by: Sharath Luke MD 11/18/2024 10:13 AM EDT RP
--- NOTE | ~2024-11-18 | XR_ITS ---
CLINICAL HISTORY: dyspnea 1 view chest x-ray Comparison: Chest 11/12/2024 Findings: There is stable mild cardiomegaly. There is stable mild right basilar pulmonary opacity. There is 1.4 cm density which is overlying the left lower heart border within the left lower lobe. There are multiple old left rib fractures again noted. No pleural effusions. No acute fracture. IMPRESSION: Stable mild cardiomegaly Stable mild right basilar pulmonary opacities 1.4 cm density overlying the left lower heart border within the left lower lobe; this is nonspecific, not well visualized on the prior study which may be due to overlap with the heart and ribs. This is nonspecific may represent focal scar or atelectasis versus pulmonary nodule. CT chest follow-up is recommended Stable old left rib fractures This document has been electronically signed by: Dalton Wallis MD on 11/18/2024 05:31:05
[2024-11-18] MEDS: Albuterol Sulfate 7.5 MG, Albuterol/Iprat 2.5/0.5MG 3 ML 3 ML INHALE (04:55)
--- NOTE | 2024-11-18 05:05 | ECG_ITS ---
Test Reason : CP Blood Pressure : */* mmHG Vent. Rate : 90 BPM Atrial Rate : 90 BPM P-R Int : 124 ms QRS Dur : 94 ms QT Int : 358 ms P-R-T Axes : 38 175 61 degrees QTcB Int : 437 ms Sinus rhythm with Premature atrial complexes Right axis deviation Right ventricular hypertrophy Abnormal ECG When compared with ECG of 12-Nov-2024 01:00, Fusion complexes are no longer Present Premature ventricular complexes are no longer Present Premature atrial complexes are now Present Referred By: Generic ED Physician Electronically Signed By: Dallin [place]
--- NOTE | 2024-11-18 05:09 | ED.GENADULT ---
HPI - General Adult General Chief complaint: Dyspnea Stated complaint: COPD Time Seen by Provider: 11/18/24 05:09 History of Present Illness ED Provider: Danay THOMAS narrative: The patient is a 54-year-old woman with a history of COPD. She has a history of multiple hospitalizations for her COPD. She was most recently hospitalized 6 days ago on November 12. She was kept overnight and discharged the next day on November 13. She was discharged to complete 7 days of Augmentin. The patient says that she comes to the emergency room after getting more short of breath over the last day or 2. She does not think she has had a fever. She has been coughing. She has been smoking cigarettes. She uses 2 liters of oxygen by nasal cannula at home. Related Data Home Medications ?Medication ?Instructions ?Recorded ?Confirmed tizanidine 4 mg tablet 4 mg PO Q12H muscle spasm 10/21/24 11/12/24 quetiapine 25 mg tablet (Seroquel) 25 mg PO BEDTIME hallucinations 11/12/24 11/12/24 quetiapine 25 mg tablet (Seroquel) 25 mg PO DAILY PRN racing thoughts 11/12/24 11/12/24 sertraline 100 mg tablet 100 mg PO DAILY 11/12/24 11/12/24 sertraline 25 mg tablet 25 mg PO DAILY 11/12/24 11/12/24 Previous Rx's ?Medication ?Instructions ?Recorded walker #1 ea 07/14/24 Rollator walker #1 ea 09/16/24 cane #1 ea 09/16/24 pulse oximeter #1 ea 09/16/24 FreeStyle Jemima 3 [place] #1 ea 09/22/24 (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,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,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) nicotine 21 mg/24 hr daily 1 patch transdermal Q24H #28 ea 10/01/24 transdermal patch tramadol 50 mg tablet 50 mg PO Q6H PRN pain #20 tabs 10/12/24 albuterol sulfate 2.5 mg/3 mL 2.5 mg (3 mL) inhalation Q4H PRN 11/09/24 (0.083 %) solution for nebulization Shortness Of Breath/Wheezing #180 mL albuterol sulfate 90 mcg/actuation 2 puff inhalation Q6H PRN for 11/09/24 aerosol inhaler (Ventolin HFA) wheezing #1 ea theophylline 400 mg 400 mg PO BID 90 days #180 tabs 11/09/24 tablet,extended release 24 hr acetaminophen 650 mg 650 mg PO Q12H PRN pain 30 days 11/12/24 tablet,extended release #60 tabs aspirin 81 mg tablet,delayed 81 mg PO DAILY 90 days #90 tabs 11/12/24 release atorvastatin 40 mg tablet 40 mg PO BEDTIME #90 tabs 11/12/24 blood sugar diagnostic (FreeStyle #100 ea 11/12/24 Lite Strips) 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 meter (FreeStyle #1 ea 11/12/24 Lite Meter kit) calcium 500 mg (as 1 tab PO DAILY #90 tabs 11/12/24 carbonate)-vitamin D3 10 mcg (400 unit) tablet esomeprazole magnesium 40 mg 40 mg PO DAILY@0630 #90 caps 11/12/24 capsule,delayed release fexofenadine 180 mg tablet 180 mg PO DAILY #30 tabs 11/12/24 (Elisabeth Allergy) furosemide 20 mg tablet 20 mg PO DAILY #90 tabs 11/12/24 gabapentin 800 mg tablet 800 mg PO QID Pain 30 days #120 11/12/24 tabs glipizide 5 mg tablet 5 mg PO DAILY #90 tabs 11/12/24 glucose 4 gram chewable tablet 16 g (4 x 4 gram) PO Q15M PRN 11/12/24 hypoglycemia #100 tabs ibuprofen 800 mg tablet 800 mg PO BID PRN Headache 30 days 11/12/24 #60 tabs ipratropium 0.5 mg-albuterol 3 mg 3 ml inhalation TID #180 mL 11/12/24 (2.5 mg base)/3 mL nebulization soln lancets 28 gauge (FreeStyle #100 ea 11/12/24 Lancets) losartan 50 mg tablet 50 mg PO DAILY #90 tabs 11/12/24 tiotropium 2.5 mcg-olodaterol 2.5 2 puff inhalation DAILY #4 grams 11/12/24 mcg/actuation mist for inhalation (Stiolto Respimat) amoxicillin 500 mg-potassium 1 tab PO Q12H #14 tabs 11/13/24 clavulanate 125 mg tablet codeine 10 mg-guaifenesin 100 mg/5 10 ml PO Q4-6H PRN cough #473 mL 11/13/24 mL oral liquid dextrose 40 % oral gel (Glucose 10 g PO Q15M PRN hypoglycemia #300 11/13/24 Gel) grams glucagon HCl 1 mg solution for 1 mg subcut Q20M PRN hypoglycemia 11/13/24 injection (Glucagon (HCl) #1 ea Emergency Kit) prednisone 10 mg tablet 10 mg PO DIRECTED #50 tabs 11/13/24 prednisone 20 mg tablet 40 mg (2 x 20 mg) PO DAILY #8 tabs 11/13/24 FreeStyle Jemima 3 Plus Sensor #2 ea 11/17/24 (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 sensor) Allergies Allergy/AdvReac Type Severity Reaction Status Date / Time doxycycline Allergy Severe Swelling Verified 11/18/24 04:46 varenicline [From CHANTIX] Allergy Severe ANAPHYLAXIS Verified 11/18/24 04:46 azithromycin Allergy Intermediate Rash Verified 11/18/24 04:46 barium sulfate Allergy Intermediate angioedema Verified 11/18/24 04:46 cetirizine Allergy Mild Rash Verified 11/18/24 04:46 famotidine Allergy Mild Rash Verified 11/18/24 04:46 linaclotide [Linzess] Allergy Mild Rash Verified 11/18/24 04:46 Review of Systems Review of Systems: Yes all other systems are reviewed and are negative PMFSH Past Medical History Medical History Cocaine use disorder Cocaine abuse GERD (gastroesophageal reflux disease) Constipation Non-insulin dependent type 2 diabetes mellitus HENRY (obstructive sleep apnea) Acute exacerbation of chronic obstructive airways disease Asthma with exacerbation Obesity hypoventilation syndrome COPD (chronic obstructive pulmonary disease) Chronic lung disease Hypoxic respiratory failure Nocturnal hypoxemia Diabetes mellitus COPD exacerbation Crack cocaine use Hyperkalemia Metabolic acidosis Leukocytosis Chest discomfort Chronic renal failure, stage 2 (mild) SOB (shortness of breath) Asthma Smoker Rotator cuff tendonitis GERD (gastroesophageal reflux disease) Chronic idiopathic constipation Bustos's esophagus Depression High triglycerides Gastroparesis Carpal tunnel syndrome of right wrist Nausea & vomiting Hernia Acute and chronic respiratory failure, unspecified whether with hypoxia or hypercapnia HTN (hypertension) Obesity (BMI 30-39.9) Knee pain, bilateral Surgical History History of cholecystectomy (~1988) History of carpal tunnel release Hx of tubal ligation History of pubovaginal sling (~2015) History of umbilical hernia repair (~2001) Hx of section History of open reduction and internal fixation (ORIF) procedure History of esophagogastroduodenoscopy (EGD) Family History Family History Father Heart disease HENRY (obstructive sleep apnea) Family history of breast cancer Mother Asthma Emphysema, unspecified Bronchitis Smoker Alcoholism Bone marrow disease Maternal Grandmother Diabetes Social History Social History Household Members: Family Household Members Other:: sister Housing: House Are you a primary regular senior care provider to a significant other at home: No Unable to assess alcohol history related to: Unknown Alcohol intake: unknown Comment: Sleeping Patient Tobacco Use Status: Former Tobacco user Tobacco use type: Cigarette Cigarette Packs Per Day: 0.5 Cigarettes Per Day: 10.0 Years Smoked: 40? Smoked in Last 30 Days: Yes e-Cigarette/Vaping Use: Never Used Use of substances other than those prescribed or required for medical reasons: Yes Substance Use Type: Crack/Cocaine Advance Directives: Yes Advance Directives on File: Yes Advance Directives Date on File: 12/19/23 Do you have a plan to hurt others: No Plan Patient : No service: No Current occupational status: disabled 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 Physical Exam ED Vital Signs: Vital Signs - 24 hr 11/18/24 04:36 11/18/24 04:52 11/18/24 04:56 Temperature 98.0 F Pulse Rate 76 84 99 Respiratory Rate 15 16 22 H Blood Pressure 189/66 H 170/81 H Pulse Oximetry 100 100 Oxygen Delivery Method Oxymask Oxymask Oxygen Flow Rate 7 6 11/18/24 05:07 11/18/24 06:30 11/18/24 07:48 Temperature Pulse Rate 87 99 86 Respiratory Rate 17 17 18 Blood Pressure 144/60 H 142/56 H Pulse Oximetry 96 100 Oxygen Delivery Method Nasal Cannula Nasal Cannula Oxygen Flow Rate 2 2 BMI result Body Mass Index 36.4 Const Other: The patient is a chronically ill-appearing 54-year-old. She has a cushingoid appearance. She is awake and alert. She looks mildly short of breath. HENMT Other: Face is symmetrical. Mucous membranes moist. Eyes General: appearance normal, both eyes and all related structures Neck Neck: Yes no JVD Resp Other: The patient has a mild increased work of breathing. Air entry is diminished bilaterally. There is wheezing bilaterally. Cardio Rate: regular rate Rhythm: regular rhythm Heart sounds: S1 normal heart sound present and S2 normal heart sound present GI Other: Abdomen is soft and nontender Skin Other: Skin is pale and dry Neuro Other: The patient seems fatigued but otherwise has a normal mental status. Cranial nerves are grossly intact. She moves her extremities symmetrically. Extrem Other: No peripheral edema, no calf swelling or tenderness, no asymmetry Medications Administered Discontinued Medications Generic Name Dose Route Start Last Admin Trade Name Freq PRN Reason Stop Dose Admin Ceftriaxone Sodium 1 gm 11/18/24 05:50 11/18/24 06:07 Ceftriaxone Sodium 1 Gm Vial IVPUSH 11/18/24 05:51 1 gm ONCE ONE Administration Albuterol Sulfate 7.5 mg/ 0 mg 11/18/24 04:44 11/18/24 04:55 Albuterol/Ipratropium 3 ml INHALE 11/18/24 04:45 1 each ONCE ONE Administration Albuterol Sulfate 2.5 mg/ 0 mg 11/18/24 07:42 11/18/24 07:46 Albuterol/Ipratropium 3 ml INHALE 11/18/24 07:43 1 dose ONCE ONE Administration Magnesium Sulfate 2 gm in 50 mls @ 150 mls/hr 11/18/24 05:14 11/18/24 06:06 Magnesium Sulfate/H2o IV 11/18/24 05:33 Infused ONCE ONE Infusion Methylprednisolone Sodium Succinate 80 mg 11/18/24 05:14 11/18/24 05:20 Methylprednisolone Sod Succ 125 Mg Vial IVPUSH 11/18/24 05:15 80 mg ONCE ONE Administration Medical Decision Making Medical Decision Making MDM Narrative: The patient is a 54-year-old woman with a history of very bad COPD who presents with the acute shortness of breath. She was wheezing. Clinically her presentation seems to be an exacerbation of her COPD. She was treated with IV steroids, IV magnesium, IV ceftriaxone, and bronchodilator nebulizer treatments. She seemed extremely tired and prone to falling asleep but her pCO2 is unremarkable. Chest x-ray shows no definite acute findings. She has an elevated white count but she is on steroids. Her CRP is normal. She seemed to feel somewhat better after initial treatments but did not feel well enough for discharge. She will be admitted to the hospitalist for further care. Lab Data 11/18/24 05:27 11/18/24 05:27 Labs: Lab Results 11/18/24 11/18/24 11/18/24 Range/Units 05: 05:34 06:18 WBC 15.6 H (4.8-10.8) X10*3/uL RBC 4.69 (4.20-5.50) X10*6/uL Hgb 10.7 L (12.0-16.0) g/dl Hct 36.1 L (37.0-47.0) % MCV 77.0 L (80.0-98.0) fL MCH 22.8 L (27.0-33.0) pg MCHC 29.6 L (31.0-35.0) g/dl RDW 18.0 H (11.0-16.0) % Plt Count 491 H (160-400) X10*3/uL MPV 8.6 L (9.4-12.3) fL Immature Gran % (Auto) 0.6 H (0.0-0.4) % Neut % (Auto) 84.5 H (45-73) % Lymph % (Auto) 10.5 L (20-40) % [place] % (Auto) 4.0 (2-11) % Eos % (Auto) 0.3 (0-4) % Baso % (Auto) 0.1 (0-2) % Lymph # (Auto) 1.6 (1.2-4.9) X10*3/uL [place] # (Auto) 0.6 (0.1-1.2) X10*3/uL Eos # (Auto) 0.0 (0.0-0.4) X10*3/uL Baso # (Auto) 0.0 (0.0-0.2) X10*3/uL Abs Immat Gran (auto) 0.10 H (0.00-0.03) X10*3/uL Absolute Neuts (auto) 13.2 H (2.0-8.3) x10*3/uL Absolute Nucleated RBC 0.000 (0.0-0.012) X10*3/uL Nucleated RBC % (auto) 0.0 (0.0-0.2) /100WBC VBG pH 7.45 H (7.32-7.43) VBG pCO2 43 mmHg VBG pO2 66 mmHg VBG HCO3 30 H (22-26) mmol/L VBG O2 Saturation 94.0 % VBG Base Excess 6.0 mmol/L Sodium 137 (135-145) mmol/L Potassium 4.9 (3.3-5.1) mmol/L Chloride 100 (96-108) mmol/L Carbon Dioxide 27 (22-29) mmol/L Anion Gap 15 (12-20) BUN 22 H (9-16) mg/dL Creatinine 0.76 (0.5-1.4) mg/dL Estim Creat Clear Calc 76.4 Estimated GFR > 60 Random Glucose 296 H (60-115) mg/dL Lactic Acid 1.8 (0.5-2.0) mmol/L Calcium 9.0 (8.4-10.2) mg/dL Total Bilirubin 0.2 (0.0-1.0) mg/dL AST 14 (5-31) U/L ALT 19 (0-31) U/L Alkaline Phosphatase 123 H (39-117) U/L Troponin I High Sens 14.2 (<3.5-17.0) ng/L C-Reactive Protein < 0.10 (< or = 0.50) mg/dL B-Natriuretic Peptide 51 (<100) pg/mL Total Protein 6.8 (6.5-8.0) g/dL Albumin 4.2 (3.5-5.0) g/dL Urine Color Yellow Urine Appearance Clear Urine pH 7.0 (5.0-9.0) Ur Specific [place] 1.010 (1.005-1.025) Urine Protein Negative (Neg-Trace) mg/dL Urine Glucose (UA) Negative (Negative) mg/dL Urine Ketones Negative (Negative) mg/dL Urine Blood Negative (Negative) Urine Nitrite Negative (Negative) Ur Leukocyte Esterase Small (1+) H (Negative) Urine RBC 0-2 (0-2) /HPF Urine WBC 0-5 (0-5) /HPF Ur Squamous Epith Cells 3-5 (0-2) /HPF Urine Bacteria None Seen (None Seen) Hyaline Casts 0-2 (0-2) /LPF Urine Opiates Screen Not Detected (Not Detect) Ur Buprenorphine Scrn Not Detected (Not Detect) ng/mL Ur Oxycodone Screen Not Detected (Not Detect) ng/mL Urine Methadone Screen Not Detected (Not Detect) ng/mL Urine Fentanyl Screen Not Detected (Not Detect) Ur Barbiturates Screen Not Detected (Not Detect) Ur Phencyclidine Scrn Not Detected (Not Detect) Ur Amphetamines Screen Not Detected (Not Detect) U Benzodiazepines Scrn Not Detected (Not Detect) Urine Cocaine Screen POSITIVE H (Not Detect) U Marijuana (THC) Screen Not Detected (Not Detect) Influenza Type A (PCR) NEGATIVE (Negative) Influenza Type B (PCR) NEGATIVE (Negative) RSV RNA Qual (PCR) NEGATIVE (Negative) SARS-CoV-2 RNA (RT-PCR) NEGATIVE (Negative) Independent Interpretation I performed an independent interpretation of an: EKG Interpretation: EKG at 05:04 shows sinus rhythm with premature atrial complexes at 90 beats per minute. No definite acute ischemic changes. Discharge Plan Discharge Patient Disposition: Admitted As Inpatient Prescriptions: No Action (DME) cane Device See Rx Instructions .Route Qty: 1 0RF Rx Instructions: Standard cane (DME) Rollator walker See Rx Instructions .Route .MEDSUPPLY Qty: 1 0RF Rx Instructions: As directed (DME) pulse oximeter See Rx Instructions .Route .MEDSUPPLY Qty: 1 0RF Rx Instructions: As directed (DME) FreeStyle Jemima 3 [place] Misc See Rx Instructions .Route Qty: 1 0RF Rx Instructions: To monitor blood sugar 4 times per day albuterol sulfate 2.5 mg /3 mL (0.083 %) solution for nebulization 2.5 mg inhalation Q4H PRN (Reason: Shortness Of Breath/Wheezing) Qty: 180 6RF theophylline 400 mg tablet extended release 24 hr 400 mg PO BID 90 Days Qty: 180 4RF albuterol sulfate [Ventolin HFA] 90 mcg/actuation HFA aerosol inhaler 2 puff inhalation Q6H PRN (Reason: for wheezing) Qty: 1 6RF acetaminophen 650 mg tablet extended release 650 mg PO Q12H PRN (Reason: pain) 30 Days Qty: 60 0RF aspirin 81 mg tablet,delayed release (DR/EC) 81 mg PO DAILY 90 Days Qty: 90 1RF atorvastatin 40 mg tablet 40 mg PO BEDTIME Qty: 90 0RF (DME) FreeStyle Lite Strips Strip See Rx Instructions .ROUTE .MEDSUPPLY Qty: 100 1RF Rx Instructions: Use to check blood sugar daily or if symptomatic hypo/hypergylcemia calcium carbonate-vitamin D3 500 mg-10 mcg (400 unit) tablet 1 tab PO DAILY Qty: 90 0RF (DME) 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 meter [FreeStyle Lite Meter] Kit See Rx Instructions .ROUTE .MEDSUPPLY Qty: 1 0RF Rx Instructions: Use to check blood sugar daily or if symptomatic for hypo/hyperglycemia esomeprazole magnesium 40 mg capsule,delayed release(DR/EC) 40 mg PO DAILY@0630 Qty: 90 1RF fexofenadine [Elisabeth Allergy] 180 mg tablet 180 mg PO DAILY Qty: 30 3RF furosemide 20 mg tablet 20 mg PO DAILY Qty: 90 3RF gabapentin 800 mg tablet 800 mg PO QID 30 Days Qty: 120 1RF glipizide 5 mg tablet 5 mg PO DAILY Qty: 90 1RF glucose 4 gram tablet,chewable 16 g PO Q15M MDD 8 tabs PRN (Reason: hypoglycemia) Qty: 100 1RF Rx Instructions: until symptoms of low blood sugar are controlled ibuprofen 800 mg tablet 800 mg PO BID PRN (Reason: Headache) 30 Days Qty: 60 0RF Rx Instructions: please use sparingly due to diabetes ipratropium-albuterol 0.5 mg-3 mg(2.5 mg base)/3 mL solution for nebulization 3 ml INHALATION TID Qty: 180 0RF (DME) lancets [FreeStyle Lancets] 28 gauge misc See Rx Instructions .ROUTE .MEDSUPPLY Qty: 100 1RF Rx Instructions: Use to check blood sugar daily or if symptomatic hypo/hypergylcemia losartan 50 mg tablet 50 mg PO DAILY Qty: 90 0RF Stiolto Respimat 2.5-2.5 mcg/actuation mist 2 puff INHALATION DAILY Qty: 4 0RF prednisone 10 mg tablet 10 mg PO DIRECTED Qty: 50 0RF Rx Instructions: Take 4 tabs daily for 5 days, then go down by 1 tab every 5 days codeine-guaifenesin 10-100 mg/5 mL liquid 10 ml PO Q4-6H PRN (Reason: cough) Qty: 473 0RF (DME) FreeStyle Jemima 3 Plus Sensor Device See Rx Instructions .Route Qty: 2 5RF Rx Instructions: To monitor blood sugars 4 times per day. Change sensor every 15 days (DME) mary anne Marrufo See Rx Instructions .Route Qty: 1 0RF Rx Instructions: As directed sertraline 25 mg tablet 25 mg PO DAILY Rx Instructions: Taken with 100mg tab for TDD of 125mg. sertraline 100 mg tablet 100 mg PO DAILY Rx Instructions: TAKE WITH 25MG FOR TOTAL OF 125MG quetiapine [Seroquel] 25 mg tablet 25 mg PO BEDTIME quetiapine [Seroquel] 25 mg tablet 25 mg PO DAILY PRN (Reason: racing thoughts) amoxicillin-pot clavulanate 500-125 mg Tablet 1 tab PO Q12H Qty: 14 0RF dextrose [Glucose Gel] 40 % gel 10 g PO Q15M PRN (Reason: hypoglycemia) Qty: 300 0RF Rx Instructions: until symptoms of low blood sugar are controlled glucagon HCl [Glucagon (HCl) Emergency Kit] 1 mg recon soln 1 mg subcut Q20M PRN (Reason: hypoglycemia) Qty: 1 0RF Rx Instructions: until target blood sugar attained prednisone 20 mg tablet 40 mg PO DAILY Qty: 8 0RF nicotine 21 mg/24 hr patch 24 hour 1 patch transdermal Q24H Qty: 28 0RF tramadol 50 mg tablet 50 mg PO Q6H PRN (Reason: pain) Qty: 20 0RF tizanidine 4 mg tablet 4 mg PO Q12H Rx Instructions: do not take concurrently with famotidine Print Language: [place] Island[place]
[2024-11-18] MEDS: Magnesium Sulfate/H2O 2 GM/50 ML PIGGYBACK IV (05:20)
[2024-11-18 05:33] LABS: Venous Blood Gas Refer to POC result
[2024-11-18 05:34] LABS: Basophils Percent Auto 0.1 % (0-2); Eosinophils Percent Auto 0.3 % (0-4); Hematocrit 36.1 % (37.0-47.0); Hemoglobin 10.7 g/dl (12.0-16.0); Imm Gran Pct Auto 0.6 % (0.0-0.4); Lymphocytes Absolute Auto 1.6 X10*3/uL (1.2-4.9); Lymphocytes Percent Auto 10.5 % (20-40); MANUAL DIFF FLAG NO; Mean Corpuscular HGB Conc 29.6 g/dl (31.0-35.0); Mean Corpuscular Hemoglobin 22.8 pg (27.0-33.0); Mean Platelet Volume 8.6 fL (9.4-12.3); Monocytes Absolute Auto 0.6 X10*3/uL (0.1-1.2); Neutrophils Absolute Auto 13.2 x10*3/uL (2.0-8.3); Neutrophils Percent Auto 84.5 % (45-73); Platelet Count 491 X10*3/uL (160-400); Red Blood Count 4.69 X10*6/uL (4.20-5.50); White Blood Count 15.6 X10*3/uL (4.8-10.8)
[2024-11-18 05:38] LABS: VBG HCO3 30 mmol/L (22-26); VBG pCO2 43 mmHg; VBG pH 7.45 (7.32-7.43); VBG pO2 66 mmHg
[2024-11-18 05:47] LABS: Lactic Acid 1.8 mmol/L (0.5-2.0)
[2024-11-18 05:48] LABS: Alanine Aminotransferase 19 U/L (0-31); Albumin Level 4.2 g/dL (3.5-5.0); Alkaline Phosphatase 123 U/L (39-117); Anion Gap 15 (12-20); Aspartate Amino Transferase 14 U/L (5-31); Bilirubin Total 0.2 mg/dL (0.0-1.0); Blood Urea Nitrogen 22 mg/dL (9-16); C Reactive Protein < 0.10 mg/dL (< or = 0.50); Carbon Dioxide 27 mmol/L (22-29); Chloride 100 mmol/L (96-108); Creatinine Clr Calc Pharmacy 76.4; Estimated Glomerular Filt Rate > 60; Glucose Random 296 mg/dL (60-115); Potassium 4.9 mmol/L (3.3-5.1); Sodium 137 mmol/L (135-145); Total Protein 6.8 g/dL (6.5-8.0)
[2024-11-18 05:53] LABS: Troponin-I High Sensitivity 14.2 ng/L (<3.5-17.0)
[2024-11-18 05:54] LABS: B Type Natriuretic Peptide 51 pg/mL (<100)
[2024-11-18] MEDS: cefTRIAXone sodium 1 GM VIAL IVPUSH (06:07)
[2024-11-18 06:11] LABS: Influenza A PCR NEGATIVE (Negative); Influenza B PCR NEGATIVE (Negative); Resp Syncy Virus RNA Qual PCR NEGATIVE (Negative); SARS COV2 PCR INHOUSE NEGATIVE (Negative)
[2024-11-18 06:25] LABS: Appearance Urine Clear; Color Urine Yellow; Glucose Urine UA Negative (Negative); Leukocyte Esterase Urine Small (1+) (Negative); Nitrite Urine Negative (Negative); UMIC TRIGGER UACC YES; Urine Blood Negative (Negative); Urine Ketones Negative (Negative); Urine Protein Negative (Neg-Trace)
[2024-11-18 06:30] LABS: Bacteria Urine None Seen (None Seen); Hyaline Casts Urine 0-2 /LPF (0-2); RBC Urine 0-2 /HPF (0-2); UACC Culture Trigger YES; WBC Urine 0-5 /HPF (0-5)
[2024-11-18 06:37] LABS: Amphetamine Screen Urine Not Detected (Not Detect); Barbiturates, Urine Not Detected (Not Detect); Benzodiazepines Screen Urine Not Detected (Not Detect); Buprenorphine Scr Not Detected (Not Detect); Cannabinoid Screen Urine Not Detected (Not Detect); Cocaine Screen Urine POSITIVE (Not Detect); Fentanyl, urine Not Detected (Not Detect); Methadone Screen, Urine Not Detected (Not Detect); Opiate Screen Urine Not Detected (Not Detect); Oxycodone Screen Urine Not Detected (Not Detect); Phencyclidine Screen Urine Not Detected (Not Detect)
[2024-11-18] MEDS: Albuterol Sulfate 2.5 MG, Albuterol/Iprat 2.5/0.5MG 3 ML 3 ML INHALE (07:46)
--- NOTE | 2024-11-18 08:48 | PM.IMHP ---
History of Present Illness Date of Service: 11/18/24 Chief Complaint: shortness of breath The patient is a 54-year-old female with a past medical history of COPD and chronic respiratory failure with hypoxia and hypercapnia on BiPAP at night, HENRY, diastolic heart failure, diabetes mellitus, cocaine use disorder, tobacco use disorder who presents to the emergency room with a 2 day history of progressive shortness of breath and productive cough. She denies any fevers or chills. She denies any sick contacts. The patient reports no relief with home inhalers/nebulizers nor any with p.o. prednisone which he was discharged on last week. She reports ongoing tobacco use as well as ongoing crack/cocaine use. On arrival to the emergency room the patient was noted to be tachypneic with increased work of breathing. There was no reports of hypoxemia. She was treated with multiple rounds of nebulized bronchodilators, systemic steroids, IV magnesium and a dose of empiric IV ceftriaxone. She has improved from arrival but continues to be short of breath and hence will be placed under observation for further treatment. Of note, patient's chest x-ray shows persistent right basilar opacity but also reports of a 1.4 cm density over the left heart border which was not well visualized in the prior imaging. A CT chest has been recommended. Review of Systems Review of Systems: Negative except HPI/interval history. [facility] Medical History Cocaine use disorder Cocaine abuse GERD (gastroesophageal reflux disease) Constipation Non-insulin dependent type 2 diabetes mellitus HENRY (obstructive sleep apnea) Acute exacerbation of chronic obstructive airways disease Asthma with exacerbation Obesity hypoventilation syndrome COPD (chronic obstructive pulmonary disease) Chronic lung disease Hypoxic respiratory failure Nocturnal hypoxemia Diabetes mellitus COPD exacerbation Crack cocaine use Hyperkalemia Metabolic acidosis Leukocytosis Chest discomfort Chronic renal failure, stage 2 (mild) SOB (shortness of breath) Asthma Smoker Rotator cuff tendonitis GERD (gastroesophageal reflux disease) Chronic idiopathic constipation Bustos's esophagus Depression High triglycerides Gastroparesis Carpal tunnel syndrome of right wrist Nausea & vomiting Hernia Acute and chronic respiratory failure, unspecified whether with hypoxia or hypercapnia HTN (hypertension) Obesity (BMI 30-39.9) Knee pain, bilateral Family History Father Heart disease HENRY (obstructive sleep apnea) Family history of breast cancer Mother Asthma Emphysema, unspecified Bronchitis Smoker Alcoholism Bone marrow disease Maternal Grandmother Diabetes Surgical History History of cholecystectomy (~1988) History of carpal tunnel release Hx of tubal ligation History of pubovaginal sling (~2015) History of umbilical hernia repair (~2001) Hx of section History of open reduction and internal fixation (ORIF) procedure History of esophagogastroduodenoscopy (EGD) Social History Household Members: Family Household Members Other:: sister Housing: House Are you a primary grounds caretaker to a significant other at home: No Unable to assess alcohol history related to: Unknown Alcohol intake: unknown Comment: Sleeping Patient Tobacco Use Status: Former Tobacco user Tobacco use type: Cigarette Cigarette Packs Per Day: 0.5 Cigarettes Per Day: 10.0 Years Smoked: 40? Smoked in Last 30 Days: Yes e-Cigarette/Vaping Use: Never Used Use of substances other than those prescribed or required for medical reasons: Yes Substance Use Type: Crack/Cocaine Advance Directives: Yes Advance Directives on File: Yes Advance Directives Date on File: 12/19/23 Do you have a plan to hurt others: No Plan Patient : No service: No Current occupational status: disabled 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 Meds Allergies Allergy/AdvReac Type Severity Reaction Status Date / Time doxycycline Allergy Severe Swelling Verified 11/18/24 04:46 varenicline [From CHANTIX] Allergy Severe ANAPHYLAXIS Verified 11/18/24 04:46 azithromycin Allergy Intermediate Rash Verified 11/18/24 04:46 barium sulfate Allergy Intermediate angioedema Verified 11/18/24 04:46 cetirizine Allergy Mild Rash Verified 11/18/24 04:46 famotidine Allergy Mild Rash Verified 11/18/24 04:46 linaclotide [Linzess] Allergy Mild Rash Verified 11/18/24 04:46 Active Medications: Current Medications Acetaminophen (Acetaminophen 325 Mg Tablet) 650 mg PO Q6H PRN PRN Reason: Pain, Mild 1-3,fever,headache Albuterol/Ipratropium (Albuterol/Iprat 2.5/0.5mg 3 Ml Ampul.Neb) 3 ml INHALE RQ4H WHILE AWAKE [facility] Calcium Carbonate (Calcium Carbonate 750 Mg Tab.Chew) 750 mg PO Q4H PRN PRN Reason: Heartburn Enoxaparin Sodium (Enoxaparin Sodium 40 Mg/0.4 Ml Syringe) 40 mg SUBCUT Q24H [place] Insulin Human Lispro (Insulin Lispro 100 Unit/Ml 3 Ml Vial) 0 unit SUBCUT QIDACHS [place]; Protocol Magnesium Hydroxide (Milk Of Magnesia 30 Ml Oral.Susp) 30 ml PO DAILY PRN PRN Reason: Constipation Melatonin (Melatonin 3 Mg Tablet) 6 mg PO BEDTIME PRN PRN Reason: Insomnia Methylprednisolone Sodium Succinate (Methylprednisolone Sod Succ 40 Mg/Ml Vial) 40 mg IVPUSH Q12H [facility] Sodium Chloride (0.9 % Sodium Chloride Flush 3 Ml Syringe) 3 ml IVFLUSH QSHIFT [facility] Home Medications ?Medication ?Instructions ?Recorded ?Confirmed ?Last Taken ?Type tizanidine 4 mg tablet 4 mg PO Q12H muscle spasm 10/21/24 11/12/24 10/20/24 History quetiapine 25 mg tablet (Seroquel) 25 mg PO BEDTIME hallucinations 11/12/24 11/12/24 Unknown History quetiapine 25 mg tablet (Seroquel) 25 mg PO DAILY PRN racing thoughts 11/12/24 11/12/24 Unknown History sertraline 100 mg tablet 100 mg PO DAILY 11/12/24 11/12/24 Unknown History sertraline 25 mg tablet 25 mg PO DAILY 11/12/24 11/12/24 Unknown History Physical Exam Vital Signs and Narrative: Vital Signs: Last Vital Signs Temp 98.0 F 11/18/24 04:36 Pulse 101 H 11/18/24 08:40 Resp 20 11/18/24 08:40 BP 142/56 H 11/18/24 06:30 Pulse Ox 96 11/18/24 08:40 O2 Del Method Nasal Cannula 11/18/24 08:40 O2 Flow Rate 2 11/18/24 08:40 BMI result Body Mass Index 36.4 Const: Other: Constitutional - Awake and Alert, drowsy but answering questions appropriately Eyes - PERRLA, EOMI Cardiovascular - S1S2, RRR, No edema Respiratory - poor air entry globally; accessory muscle use - mild, with conversational exertion Gastrointestinal - NT / ND; +BS; No rebound or guarding - No CVA tenderness Extremities - no calf tenderness bilaterally, no swelling Musculoskeletal - Normal inspection, normal ROM Skin - Warm/Dry Neurological - Alert & oriented x3, No focal deficit Psychological - Appropriate affect Results Labs 11/18/24 05:27 11/18/24 05:27 Labs: Laboratory Results - last 24 hr 11/18/24 11/18/24 11/18/24 05:27 05:34 06:18 MCV 77.0 L MCH 22.8 L MCHC 29.6 L RDW 18.0 H Plt Count 491 H MPV 8.6 L Immature Gran % (Auto) 0.6 H Neut % (Auto) 84.5 H Lymph % (Auto) 10.5 L Vernon % (Auto) 4.0 Eos % (Auto) 0.3 Baso % (Auto) 0.1 Lymph # (Auto) 1.6 Vernon # (Auto) 0.6 Eos # (Auto) 0.0 Baso # (Auto) 0.0 Abs Immat Gran (auto) 0.10 H Absolute Neuts (auto) 13.2 H Absolute Nucleated RBC 0.000 Nucleated RBC % (auto) 0.0 VBG pH 7.45 H VBG pCO2 43 VBG pO2 66 VBG HCO3 30 H VBG O2 Saturation 94.0 VBG Base Excess 6.0 Anion Gap 15 Estim Creat Clear Calc 76.4 Estimated GFR > 60 Random Glucose 296 H Lactic Acid 1.8 Calcium 9.0 Total Bilirubin 0.2 AST 14 ALT 19 Alkaline Phosphatase 123 H C-Reactive Protein < 0.10 B-Natriuretic Peptide 51 Total Protein 6.8 Albumin 4.2 Urine Color Yellow Urine Appearance Clear Urine pH 7.0 Ur Specific Chacon 1.010 Urine Protein Negative Urine Glucose (UA) Negative Urine Ketones Negative Urine Blood Negative Urine Nitrite Negative Ur Leukocyte Esterase Small (1+) H Urine RBC 0-2 Urine WBC 0-5 Ur Squamous Epith Cells 3-5 Urine Bacteria None Seen Hyaline Casts 0-2 Urine Opiates Screen Not Detected Ur Buprenorphine Scrn Not Detected Ur Oxycodone Screen Not Detected Urine Methadone Screen Not Detected Urine Fentanyl Screen Not Detected Ur Barbiturates Screen Not Detected Ur Phencyclidine Scrn Not Detected Ur Amphetamines Screen Not Detected U Benzodiazepines Scrn Not Detected Urine Cocaine Screen POSITIVE H U Marijuana (THC) Screen Not Detected Influenza Type A (PCR) NEGATIVE Influenza Type B (PCR) NEGATIVE RSV RNA Qual (PCR) NEGATIVE SARS-CoV-2 RNA (RT-PCR) NEGATIVE Assessment and Plan (1) Acute exacerbation of chronic obstructive pulmonary disease: Status: Acute Plan 54 yo F with a history of asthma/copd overlap syndrome, HENRY on ? CPAP at home, HFpEF, active tobacco and crack coaine use who presents with a 2 day history of shortness of breath and is found to be in acute exacerbation. She continues to actively use cocaine despite multiple hospitalizations for COPD due to this. 1. Acute asthma/copd overlap syndrome exacerbation due to on going crack cocaine use recently treated with R sided pneumonia; Cxr showing L density -- will check CT chest given IV rocephin in the ED, will await CT for further abx 2. Chronic hypoxic and hypercarbic resp failure 2a. HENRY continue baseline O2 and BIPAP at night 3. DM poc + sliding scale 4. HFpEF lasix 5. Mood continue baseline meds Full Code DVT pptx -- Lovenox Med rec pending -- continue baseline meds as appropriate. Addendum: CT chest done -- RML likely atelectatsis but concern over aspiration; L lung density seen on CXR not mentioned on CT chest Quality Stroke Does the patient have a stroke diagnosis?: No VTE Prior VTE?: No VTE Risk Level:: Medical - moderate - high VTE Device Contraindication: N/A - Device Ordered VTE Drug Contraindication: N/A - Med Ordered
--- NOTE | 2024-11-18 11:29 | PHA.MEDREC ---
Pharmacy Consult ? Medication Reconciliation Pharmacy has completed the medication reconciliation. Utilized recent discharge packet from 11/13. Pt states there are not changes since her last admission. Pt states she is currently on 40mg prednisone daily, and has few days remaining on Augmentin.
[2024-11-18] MEDS: Enoxaparin Sodium 40 MG/0.4 ML SYRINGE SUBCUT (11:33)
[2024-11-18] MEDS: Albuterol/Iprat 2.5/0.5MG 3 ML AMPUL.NEB INHALE ×3 (11:43→19:20)
[2024-11-18] MEDS: TiZANidine HCL 4 MG TABLET PO ×2 (12:06→23:48)
[2024-11-18] MEDS: Ampicillin Sodium/Sulbactam Na 3 GM in 0.9 % Sodium Chloride 100 ML IV ×3 (12:07→23:53)
[2024-11-18] MEDS: Nicotine 21 MG PATCH.TD24 TRANSDERMA (12:07)
[2024-11-18 12:38] LABS: Glucose, Whole Blood 410 mg/dL (60-115)
--- NOTE | 2024-11-18 12:41 | PC.NURSE ---
lunchtime POC 410. Provider notified. 5u lispro ordered on top of 10u sliding scale. Per MD give the 15u total.
[2024-11-18] MEDS: Insulin Lispro 100 UNIT/ML 3 ML VIAL SUBCUT ×4 (13:06→22:12)
[2024-11-18 14:51] LABS: Glucose, Whole Blood 476 mg/dL (60-115)
[2024-11-18] MEDS: Insulin Glargine,Hum.rec.anlog 100 UNIT/ML 10 ML VIAL 10 UNIT SUBCUT (15:05)
[2024-11-18 16:49] LABS: Glucose, Whole Blood 330 mg/dL (60-115)
[2024-11-18] MEDS: methylPREDNISolone Sod Succ 40 MG/ML VIAL IVPUSH (17:19)
[2024-11-18] MEDS: Morphine Sulfate 2 MG/ML CARTRIDGE IVPUSH ×2 (17:19→23:49)
[2024-11-18] MEDS: QUEtiapine Fumarate 25 MG TABLET PO (17:25)
[2024-11-18] MEDS: 0.9 % Sodium Chloride Flush 3 ML SYRINGE IVFLUSH (17:37)
--- NOTE | 2024-11-18 20:27 | ECG_ITS ---
Test Reason : CP Blood Pressure : */* mmHG Vent. Rate : 108 BPM Atrial Rate : 108 BPM P-R Int : 122 ms QRS Dur : 92 ms QT Int : 350 ms P-R-T Axes : 53 156 52 degrees QTcB Int : 469 ms Sinus tachycardia with Premature supraventricular complexes Right axis deviation Right ventricular hypertrophy Abnormal ECG When compared with ECG of 18-Nov-2024 05:04, No significant change was found Referred By: Pierre Agustin Electronically Signed By: Dallin Birmingham
[2024-11-18] MEDS: diazePAM 10 MG/2 ML CARTRIDGE 5 MG IVPUSH (20:40)
[2024-11-18] MEDS: Theophylline Anhydrous ER 400 MG TAB.ER.24H PO (20:49)
[2024-11-18] MEDS: Atorvastatin Calcium 40 MG TABLET PO (20:49)
[2024-11-18 21:11] LABS: Glucose, Whole Blood 229 mg/dL (60-115)
[2024-11-18] MEDS: guaiFENesin 100 MG/5 ML 5 ML LIQUID PO (22:24)
[2024-11-18] MEDS: Gabapentin 400 MG CAPSULE 800 MG PO (22:24)
[2024-11-19 00:09] VITALS: PULSE 97; RESP 18; O2SAT 95
[2024-11-19] MEDS: Albuterol/Iprat 2.5/0.5MG 3 ML AMPUL.NEB INHALE ×3 (00:09→11:29)
[2024-11-19 03:30] VITALS: RESP 20; O2SAT 94
[2024-11-19 03:31] VITALS: BP 130/58; PULSE 84; RESP 18; TEMP 36; O2SAT 92
[2024-11-19] MEDS: methylPREDNISolone Sod Succ 40 MG/ML VIAL IVPUSH (05:51)
[2024-11-19] MEDS: Ampicillin Sodium/Sulbactam Na 3 GM in 0.9 % Sodium Chloride 100 ML IV (05:52)
[2024-11-19] MEDS: Omeprazole 20 MG CAPSULE.DR PO (05:55)
[2024-11-19 06:59] LABS: Glucose, Whole Blood 209 mg/dL (60-115)
[2024-11-19 07:09] VITALS: BP 137/77; PULSE 92; RESP 18; TEMP 36.2; O2SAT 98
[2024-11-19 07:45] VITALS: PULSE 101; RESP 18; O2SAT 98
[2024-11-19] MEDS: Insulin Lispro 100 UNIT/ML 3 ML VIAL SUBCUT ×2 (08:05→12:03)
[2024-11-19] MEDS: Sertraline HCL 25 MG TABLET PO (08:06)
[2024-11-19] MEDS: Aspirin Enteric Coated 81 MG TABLET.DR PO (08:06)
[2024-11-19] MEDS: Losartan Potassium 50 MG TABLET PO (08:06)
[2024-11-19] MEDS: Sertraline HCL 100 MG TABLET PO (08:06)
[2024-11-19] MEDS: Furosemide 20 MG TABLET PO (08:06)
[2024-11-19] MEDS: Theophylline Anhydrous ER 400 MG TAB.ER.24H PO (08:06)
[2024-11-19] MEDS: Calcium + Vitamin D 250 MG TABLET PO (08:06)
[2024-11-19] MEDS: 0.9 % Sodium Chloride Flush 3 ML SYRINGE IVFLUSH (08:08)
[2024-11-19] MEDS: Enoxaparin Sodium 40 MG/0.4 ML SYRINGE SUBCUT (08:13)
--- NOTE | 2024-11-19 08:38 | MHC.CM.PN ---
Patient is here under OBSERVATION and CHAPARRO will be addressed with her this morning. Patient lives in a third floor walk up apartment with her Sister and she uses a walker to assist with mobility. 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 Patient's home O2 and Bipap are supplied by [employer]. Home/resume said services is the goal and CM has initiated and will follow for dc planning. PCP is Dr. Joe Hale and Patient may require assist with transportation to home.
--- NOTE | 2024-11-19 09:28 | P.DS_ITS ---
DS: Providers Provider Date of Service: 11/19/24 Date of admission: 11/18/24 08:43 Date of discharge: 11/19/24 Primary care physician: Joe Hale [facility] DS: Diagnosis Discharge Diagnosis (1) Acute exacerbation of chronic obstructive pulmonary disease: Status: Acute DS: Summary Hospital Course Hospital Course: from initial hpi: 54-year-old female with a past medical history of COPD and chronic respiratory failure with hypoxia and hypercapnia on BiPAP at night, HENRY, diastolic heart failure, diabetes mellitus, cocaine use disorder, tobacco use disorder who presents to the emergency room with a 2 day history of progressive shortness of breath and productive cough. She denies any fevers or chills. She denies any sick contacts. The patient reports no relief with home inhalers/nebulizers nor any with p.o. prednisone which he was discharged on last week. She reports ongoing tobacco use as well as ongoing crack/cocaine use. On arrival to the emergency room the patient was noted to be tachypneic with increased work of breathing. There was no reports of hypoxemia. She was treated with multiple rounds of nebulized bronchodilators, systemic steroids, IV magnesium and a dose of empiric IV ceftriaxone. She has improved from arrival but continues to be short of breath and hence will be placed under observation for further treatment. Of note, patient's chest x-ray shows persistent right basilar opacity but also reports of a 1.4 cm density over the left heart border which was not well visualized in the prior imaging. A CT chest has been recommended. hospital course: Patient was admitted for chronic hypoxic and hypercapnic respiratory failure complicated by acute severe persistent asthma/COPD overlap with acute decompensation due to ongoing crack cocaine use and possible environmental allergens at home. Was treated with steroids, nebs and shortness of breath returned to baseline she will be discharged on 5 more days of prednisone encouraged to avoid allergens and cocaine. For diabetes was continued on insul in sliding scale. For chronic diastolic CHF was continued on Lasix. For mood disorder was continued on quetiapine, sertraline. Time Attestation Discharge Coordination Time (in mins): 35 Quality: Safe Use of Opioids Does Pt have an Active Cancer Diagnosis on the Problem List?: No Quality: Stroke Does the patient have a stroke diagnosis?: No Physical Exam Vital Signs: Vital Signs: Last Vital Signs Temp 97.2 F 11/19/24 07:09 Pulse 101 H 11/19/24 07:45 Resp 18 11/19/24 07:45 BP 137/77 11/19/24 07:09 Pulse Ox 98 11/19/24 07:09 O2 Del Method Oxymask 11/19/24 07:09 O2 Flow Rate 2 11/19/24 07:09 BMI result Body Mass Index 34.8 General: AO X 3, no acute distress, cushinoid Resp: midl wheeze bilateral, mild accessory muscles used CVS: S1,S2,RRR GI: soft, non tender, non distended Neuro: motor grossly intact, alert Psych: appropriate affect, appropriate insight DS: Data Data Completed and Pending Completed studies during hospitalization [Text1]: Procedures Assistance with Respiratory Ventilation, 24-96 Consecutive Hours, Continuous Positive Airway Pressure (10/30/24) Assistance with Respiratory Ventilation, Less than 24 Consecutive Hours, Continuous Positive Airway Pressure (10/21/24) Insertion of Endotracheal Airway into Trachea, Via Natural or Artificial Opening (10/30/24) Insertion of Infusion Device into Superior Vena Cava, Percutaneous Approach (11/03/20) Introduction of Vasopressor into Peripheral Vein, Percutaneous Approach (10/30/24) Respiratory Ventilation, Less than 24 Consecutive Hours (10/30/24) Labs on day of discharge: Laboratory Results - last 24 hr 11/18/24 11/18/24 11/18/24 12:34 14:47 16:45 POC Glucose 410 H* 476 H* 330 H 11/18/24 11/19/24 21:07 06:55 POC Glucose 229 H 209 H Preliminary micro results at discharge 11/18/24 05:33 Blood Culture - Preliminary Blood - Venous No growth after 24 hours. 11/18/24 05:27 Blood Culture - Preliminary Blood - Venous No growth after 24 hours. Discharge Plan Discharge Anticipated Discharge Date/Time: 11/19/24 09:23 Patient Disposition: Home, Self-Care Discharge Diagnosis: copd/asthma Referrals: Joe Hale [employer]PER[employer] [Primary Care Provider] - 1 Week Discharge Medications: Continued (DME) cane Device See Rx Instructions .Route Qty: 1 0RF Rx Instructions: Standard cane (DME) Rollator walker See Rx Instructions .Route .MEDSUPPLY Qty: 1 0RF Rx Instructions: As directed (DME) pulse oximeter See Rx Instructions .Route .MEDSUPPLY Qty: 1 0RF Rx Instructions: As directed (DME) FreeStyle Jemima 3 Wyola Misc See Rx Instructions .Route Qty: 1 0RF Rx Instructions: To monitor blood sugar 4 times per day albuterol sulfate 2.5 mg /3 mL (0.083 %) solution for nebulization 2.5 mg inhalation Q4H PRN (Reason: Shortness Of Breath/Wheezing) Qty: 180 6RF theophylline 400 mg tablet extended release 24 hr 400 mg PO BID 90 Days Qty: 180 4RF albuterol sulfate [Ventolin HFA] 90 mcg/actuation HFA aerosol inhaler 2 puff inhalation Q6H PRN (Reason: for wheezing) Qty: 1 6RF acetaminophen 650 mg tablet extended release 650 mg PO Q12H PRN (Reason: pain) 30 Days Qty: 60 0RF aspirin 81 mg tablet,delayed release (DR/EC) 81 mg PO DAILY 90 Days Qty: 90 1RF atorvastatin 40 mg tablet 40 mg PO BEDTIME Qty: 90 0RF (DME) FreeStyle Lite Strips Strip See Rx Instructions .ROUTE .MEDSUPPLY Qty: 100 1RF Rx Instructions: Use to check blood sugar daily or if symptomatic hypo/hypergylcemia calcium carbonate-vitamin D3 500 mg-10 mcg (400 unit) tablet 1 tab PO DAILY Qty: 90 0RF (DME) 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 meter [FreeStyle Lite Meter] Kit See Rx Instructions .ROUTE .MEDSUPPLY Qty: 1 0RF Rx Instructions: Use to check blood sugar daily or if symptomatic for hypo/hyperglycemia esomeprazole magnesium 40 mg capsule,delayed release(DR/EC) 40 mg PO DAILY@0630 Qty: 90 1RF fexofenadine [Elisabeth Allergy] 180 mg tablet 180 mg PO DAILY Qty: 30 3RF furosemide 20 mg tablet 20 mg PO DAILY Qty: 90 3RF gabapentin 800 mg tablet 800 mg PO QID 30 Days Qty: 120 1RF glipizide 5 mg tablet 5 mg PO DAILY Qty: 90 1RF glucose 4 gram tablet,chewable 16 g PO Q15M MDD 8 tabs PRN (Reason: hypoglycemia) Qty: 100 1RF Rx Instructions: until symptoms of low blood sugar are controlled ibuprofen 800 mg tablet 800 mg PO BID PRN (Reason: Headache) 30 Days Qty: 60 0RF Rx Instructions: please use sparingly due to diabetes ipratropium-albuterol 0.5 mg-3 mg(2.5 mg base)/3 mL solution for nebulization 3 ml INHALATION TID Qty: 180 0RF (DME) lancets [FreeStyle Lancets] 28 gauge misc See Rx Instructions .ROUTE .MEDSUPPLY Qty: 100 1RF Rx Instructions: Use to check blood sugar daily or if symptomatic hypo/hypergylcemia losartan 50 mg tablet 50 mg PO DAILY Qty: 90 0RF Stiolto Respimat 2.5-2.5 mcg/actuation mist 2 puff INHALATION DAILY Qty: 4 0RF (DME) FreeStyle Jemima 3 Plus Sensor Device See Rx Instructions .Route Qty: 2 5RF Rx Instructions: To monitor blood sugars 4 times per day. Change sensor every 15 days (DME) walker Misc See Rx Instructions .Route Qty: 1 0RF Rx Instructions: As directed sertraline 25 mg tablet 25 mg PO DAILY Rx Instructions: Taken with 100mg tab for TDD of 125mg. sertraline 100 mg tablet 100 mg PO DAILY Rx Instructions: TAKE WITH 25MG FOR TOTAL OF 125MG quetiapine [Seroquel] 25 mg tablet 25 mg PO BEDTIME quetiapine [Seroquel] 25 mg tablet 25 mg PO DAILY PRN (Reason: racing thoughts) amoxicillin-pot clavulanate 500-125 mg Tablet 1 tab PO Q12H Qty: 14 0RF dextrose [Glucose Gel] 40 % gel 10 g PO Q15M PRN (Reason: hypoglycemia) Qty: 300 0RF Rx Instructions: until symptoms of low blood sugar are controlled glucagon HCl [Glucagon (HCl) Emergency Kit] 1 mg recon soln 1 mg subcut Q20M PRN (Reason: hypoglycemia) Qty: 1 0RF Rx Instructions: until target blood sugar attained prednisone 20 mg tablet 40 mg PO DAILY Qty: 10 0RF codeine-guaifenesin 10-100 mg/5 mL liquid 10 ml PO Q4-6H PRN (Reason: cough) Qty: 473 0RF nicotine 21 mg/24 hr patch 24 hour 1 patch transdermal Q24H Qty: 28 0RF tramadol 50 mg tablet 50 mg PO Q6H PRN (Reason: pain) Qty: 20 0RF tizanidine 4 mg tablet 4 mg PO Q12H Rx Instructions: do not take concurrently with famotidine Discharge Orders: Discharge Order (Routine); Ordered 11/19/24 Ordered By: Pierre Agustin Diet: Advance to usual diet Activity on Discharge: As tolerated Stand Alone Forms: Patient Portal Discharge page Print Language: Hungarian Care Plan Goals: recovery, avoid hospitalizations Health Concerns: asthma/copd Plan of Treatment: 5 days prednisone avoid cocaine and allergens Assessment: see above
--- NOTE | 2024-11-19 10:52 | MHC.CM.PN ---
Addendum entered by Josy Rodgers 11/19/24 12:04: Patient will dc to home today via [facility] (ambulance is on their way).RN is aware. Original Note: Patient has been medically cleared for dc to home today.Patient is active with [facility], who has been made aware of today's dc. CM relayed to MD that [facility] was requesting that Patient be evaluated for STR.
[2024-11-19 11:14] LABS: Glucose, Whole Blood 356 mg/dL (60-115)
[2024-11-19 11:30] VITALS: PULSE 102; RESP 18; O2SAT 98
[2024-11-19] MEDS: QUEtiapine Fumarate 25 MG TABLET PO (12:04)
[2024-11-19] MEDS: TiZANidine HCL 4 MG TABLET PO (12:04)
[2024-11-19] MEDS: Nicotine 21 MG PATCH.TD24 TRANSDERMA (12:08)
== END 2024-11-19 13:01 | disposition home health service (06) ==
LOC: HO.ED 08:40 → HO.EDOVER 09:12 → HO.IMC 14:40
PROVIDERS: Admitting Provider Family Medicine; Emergency Provider Emergency Medicine; PCP Nurse Practitioner Family; Visit Provider Internal Medicine
DX: J44.1 Chronic obstructive pulmonary disease with (acute) exacerbation (principal); J96.12 Chronic respiratory failure with hypercapnia; R07.9 Chest pain, unspecified; E11.9 Type 2 diabetes mellitus without complications; F14.90 Cocaine use, unspecified, uncomplicated; R05.9 Cough, unspecified; I50.32 Chronic diastolic (congestive) heart failure; Z72.0 Tobacco use; Z79.899 Other long term (current) drug therapy; Z99.89 Dependence on other enabling machines and devices; Z79.4 Long term (current) use of insulin; Z03.818 Encounter for observation for suspected exposure to other biological agents ruled out
CPT/HCPCS: 0241U; 36415; 71045; 71250; 80053; 80307; 81001; 82803; 82947; 83605; 83880; 84484; 85025; 86140; 87040; 87086; 93005; 94640; 94660; 96365; 96366; 96367; 96372; 96375; 96376; 99222; 99285; J0295; J0696; J1650; J2270; J2919; J3360; J3475

== ENCOUNTER → 2024-11-18 04:50 | Outpatient (BNV) | payer OTHER, SELFPAY | PROVIDERS: Emergency Provider Emergency Medicine; PCP Nurse Practitioner Family; Visit Provider Radiology Diagnostic Radiology | DX: R06.02 Shortness of breath (principal) | CPT/HCPCS: 71045; 71250 ==

== ENCOUNTER → 2024-11-18 05:05 | Outpatient (BNV) | payer OTHER, SELFPAY | PROVIDERS: Admitting Provider Family Medicine; Emergency Provider Emergency Medicine; PCP Nurse Practitioner Family; Visit Provider Internal Medicine Cardiovascular Disease | DX: I49.1 Atrial premature depolarization (principal); I51.7 Cardiomegaly; R00.0 Tachycardia, unspecified | CPT/HCPCS: 93010 ==

== ENCOUNTER → 2024-11-18 08:43 | Outpatient (BNV) | payer OTHER, SELFPAY | PROVIDERS: Admitting Provider Family Medicine; Emergency Provider Emergency Medicine; PCP Nurse Practitioner Family; Visit Provider Family Medicine | DX: J44.1 Chronic obstructive pulmonary disease with (acute) exacerbation (principal) | CPT/HCPCS: 99223; 99239 ==

== ENCOUNTER 2024-11-25 21:40 | Inpatient (IN) | payer OTHER, SELFPAY ==
--- NOTE | ~2024-11-25 | XR_ITS ---
CLINICAL HISTORY: sob, hx copd 1 view chest x-ray Comparison: Chest x-ray from 11/18/2024 Findings: Low lung volumes with mild bibasilar atelectasis and/or pneumonitis. Mild emphysematous changes are redemonstrated. Imaged mediastinum and imaged osseous structures appear unchanged with likely calcific tendinitis calcification adjacent to the left humerus. IMPRESSION: Mild bibasilar atelectasis/pneumonitis. This document has been electronically signed by: Bhupendra Sorto MD on 11/25/2024 23:26:59
[2024-11-25 21:50] VITALS: BP 128/71; BP 138/66; PULSE 113; PULSE 54; RESP 24; TEMP 36.5; O2SAT 90; O2SAT 98; BMI 32.3
[2024-11-25 21:59] VITALS: PULSE 100; RESP 22; O2SAT 96
[2024-11-25] MEDS: Albuterol Sulfate 5 MG, Albuterol/Iprat 2.5/0.5MG 3 ML 3 ML INHALE (21:59)
--- NOTE | 2024-11-25 22:04 | ECG_ITS ---
Test Reason : SOB Blood Pressure : */* mmHG Vent. Rate : 104 BPM Atrial Rate : 104 BPM P-R Int : 118 ms QRS Dur : 90 ms QT Int : 346 ms P-R-T Axes : 72 161 48 degrees QTcB Int : 454 ms Sinus tachycardia with Premature atrial complexes Right ventricular hypertrophy Possible Inferior infarct , age undetermined Abnormal ECG When compared with ECG of 18-Nov-2024 20:27, No significant change was found Referred By: Ly Bazan Electronically Signed By: PAUL VARGAS MD
[2024-11-25 22:06] VITALS: PULSE 112; RESP 27; O2SAT 97
--- NOTE | 2024-11-25 22:14 | ED.SOB ---
HPI - SOB/Dyspnea General Chief Complaint: Dyspnea Stated Complaint: sob Time Seen by Provider: 11/25/24 21:57 Source: patient and EMS Mode of arrival: EMS Limitations: no limitations History of Present Illness ED Provider: Dr. Ly Bazan HPI Narrative: Patient comes to the emergency room complaining of shortness of breath. According to the patient, she was doing well until today. Patient was unable to breathe. Patient tried putting her BiPAP on but the machine would not turn on. Patient called 911. Patient's oxygen saturation was 90% on room air when EMS arrived. They gave her a DuoNeb. Patient uses 2 L of oxygen at baseline and uses BiPAP at home. On arrival, patient only able to say a few words Related Data Home Medications ?Medication ?Instructions ?Recorded ?Confirmed tizanidine 4 mg tablet 4 mg PO Q12H muscle spasm 10/21/24 11/18/24 quetiapine 25 mg tablet (Seroquel) 25 mg PO BEDTIME hallucinations 11/12/24 11/18/24 quetiapine 25 mg tablet (Seroquel) 25 mg PO DAILY PRN racing thoughts 11/12/24 11/18/24 sertraline 100 mg tablet 100 mg PO DAILY 11/12/24 11/18/24 sertraline 25 mg tablet 25 mg PO DAILY 11/12/24 11/18/24 Previous Rx's ?Medication ?Instructions ?Recorded walker #1 ea 07/14/24 Rollator walker #1 ea 09/16/24 cane #1 ea 09/16/24 pulse oximeter #1 ea 09/16/24 FreeStyle Jemima 3 [place] #1 ea 09/22/24 (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,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,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) nicotine 21 mg/24 hr daily 1 patch transdermal Q24H #28 ea 10/01/24 transdermal patch tramadol 50 mg tablet 50 mg PO Q6H PRN pain #20 tabs 10/12/24 albuterol sulfate 2.5 mg/3 mL 2.5 mg (3 mL) inhalation Q4H PRN 11/09/24 (0.083 %) solution for nebulization Shortness Of Breath/Wheezing #180 mL albuterol sulfate 90 mcg/actuation 2 puff inhalation Q6H PRN for 11/09/24 aerosol inhaler (Ventolin HFA) wheezing #1 ea theophylline 400 mg 400 mg PO BID 90 days #180 tabs 11/09/24 tablet,extended release 24 hr acetaminophen 650 mg 650 mg PO Q12H PRN pain 30 days 11/12/24 tablet,extended release #60 tabs aspirin 81 mg tablet,delayed 81 mg PO DAILY 90 days #90 tabs 11/12/24 release atorvastatin 40 mg tablet 40 mg PO BEDTIME #90 tabs 11/12/24 blood sugar diagnostic (FreeStyle #100 ea 11/12/24 Lite Strips) 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 meter (FreeStyle #1 ea 11/12/24 Lite Meter kit) calcium 500 mg (as 1 tab PO DAILY #90 tabs 11/12/24 carbonate)-vitamin D3 10 mcg (400 unit) tablet esomeprazole magnesium 40 mg 40 mg PO DAILY@0630 #90 caps 11/12/24 capsule,delayed release fexofenadine 180 mg tablet 180 mg PO DAILY #30 tabs 11/12/24 (Elisabeth Allergy) furosemide 20 mg tablet 20 mg PO DAILY #90 tabs 11/12/24 gabapentin 800 mg tablet 800 mg PO QID Pain 30 days #120 11/12/24 tabs glipizide 5 mg tablet 5 mg PO DAILY #90 tabs 11/12/24 glucose 4 gram chewable tablet 16 g (4 x 4 gram) PO Q15M PRN 11/12/24 hypoglycemia #100 tabs ibuprofen 800 mg tablet 800 mg PO BID PRN Headache 30 days 11/12/24 #60 tabs ipratropium 0.5 mg-albuterol 3 mg 3 ml inhalation TID #180 mL 11/12/24 (2.5 mg base)/3 mL nebulization soln lancets 28 gauge (FreeStyle #100 ea 11/12/24 Lancets) losartan 50 mg tablet 50 mg PO DAILY #90 tabs 11/12/24 tiotropium 2.5 mcg-olodaterol 2.5 2 puff inhalation DAILY #4 grams 11/12/24 mcg/actuation mist for inhalation (Stiolto Respimat) amoxicillin 500 mg-potassium 1 tab PO Q12H #14 tabs 11/13/24 clavulanate 125 mg tablet dextrose 40 % oral gel (Glucose 10 g PO Q15M PRN hypoglycemia #300 11/13/24 Gel) grams glucagon HCl 1 mg solution for 1 mg subcut Q20M PRN hypoglycemia 11/13/24 injection (Glucagon (HCl) #1 ea Emergency Kit) FreeStyle Jemima 3 Plus Sensor #2 ea 11/17/24 (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 sensor) codeine 10 mg-guaifenesin 100 mg/5 10 ml PO Q4-6H PRN cough #473 mL 11/19/24 mL oral liquid prednisone 20 mg tablet 40 mg (2 x 20 mg) PO DAILY #10 tabs 11/19/24 Allergies Allergy/AdvReac Type Severity Reaction Status Date / Time doxycycline Allergy Severe Swelling Verified 11/25/24 21:52 varenicline [From CHANTIX] Allergy Severe ANAPHYLAXIS Verified 11/25/24 21:52 azithromycin Allergy Intermediate Rash Verified 11/25/24 21:52 barium sulfate Allergy Intermediate angioedema Verified 11/25/24 21:52 cetirizine Allergy Mild Rash Verified 11/25/24 21:52 famotidine Allergy Mild Rash Verified 11/25/24 21:52 linaclotide [Linzess] Allergy Mild Rash Verified 11/25/24 21:52 Review of Systems Review of Systems: Constitutional : No Weight loss, No Fever, No Chills, No Night Sweats, No Fatigue, No Malaise ENT/Mouth : No Hearing loss, No Ear Pain, No Nasal Congestion, No Sinus Pain, No Hoarseness, No sore throat, No Rhinorrhea, No Swallowing Difficulty Eyes: No Eye Pain, No Swelling, No Redness, No Foreign Body, No Discharge, No Vision Changes Cardiovascular : Chest tightness without Chest Pain, No SOB, No Dyspnea on Exertion, No Orthopnea, No Edema, No Palpitations Respiratory : Complaining of wheezing, shortness of breath and chest tightness Gastrointestinal : No Nausea, No Vomiting, No Diarrhea, No Constipation, No abdominal Pain, No Hematochezia, No Melena Genitourinary : no irregular bleeding, No Dysuria, No Urinary Frequency, No Hematuria, No Urinary Incontinence, No Urgency, No Flank Pain, No Urinary Flow Changes, No Hesitancy Musculoskeletal : No joint pain, No Myalgias, No Joint Swelling Skin : No Skin Lesions, No rash Neuro : No Weakness, No Numbness, No Paresthesias, No Loss of Consciousness, No Dizziness, No Headache Psych : No Anxiety/Panic, No Depression, No SI/HI/AH/VH, No Social Issues, Heme/Lymph: No Bruising, No Bleeding,No Lymphadenopathy Endocrine : No Polyuria, No Polydipsia, No Temperature Intolerance [facility] Past Medical History Medical History Cocaine use disorder Cocaine abuse GERD (gastroesophageal reflux disease) Constipation Non-insulin dependent type 2 diabetes mellitus HENRY (obstructive sleep apnea) Acute exacerbation of chronic obstructive airways disease Asthma with exacerbation Obesity hypoventilation syndrome COPD (chronic obstructive pulmonary disease) Chronic lung disease Hypoxic respiratory failure Nocturnal hypoxemia Diabetes mellitus COPD exacerbation Crack cocaine use Hyperkalemia Metabolic acidosis Leukocytosis Chest discomfort Chronic renal failure, stage 2 (mild) SOB (shortness of breath) Asthma Smoker Rotator cuff tendonitis GERD (gastroesophageal reflux disease) Chronic idiopathic constipation Bustos's esophagus Depression High triglycerides Gastroparesis Carpal tunnel syndrome of right wrist Nausea & vomiting Hernia Acute and chronic respiratory failure, unspecified whether with hypoxia or hypercapnia HTN (hypertension) Obesity (BMI 30-39.9) Knee pain, bilateral Surgical History History of cholecystectomy (~1988) History of carpal tunnel release Hx of tubal ligation History of pubovaginal sling (~2015) History of umbilical hernia repair (~2001) Hx of section History of open reduction and internal fixation (ORIF) procedure History of esophagogastroduodenoscopy (EGD) Family History Family History Father Heart disease HENRY (obstructive sleep apnea) Family history of breast cancer Mother Asthma Emphysema, unspecified Bronchitis Smoker Alcoholism Bone marrow disease Maternal Grandmother Diabetes Social History Social History Household Members: Family Household Members Other:: sister Housing: House Are you a primary caretaker grounds to a significant other at home: No Do you presently have visiting nurse or other home services: Yes ([facility]) Unable to assess alcohol history related to: Unknown Alcohol intake: unknown Comment: Sleeping Patient Tobacco Use Status: Current everyday Tobacco user Tobacco use type: Cigarette Cigarette Packs Per Day: 0.5 Cigarettes Per Day: 10.0 Years Smoked: 40? Smoked in Last 30 Days: No e-Cigarette/Vaping Use: Never Used Second Hand Smoke Exposure: Yes Use of substances other than those prescribed or required for medical reasons: No Substance Use Type: Crack/Cocaine Advance Directives: Yes Advance Directives on File: Yes Advance Directives Date on File: 12/19/23 service: No Current occupational status: disabled 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 Physical Exam Vital Signs: Vital Signs: Last Vital Signs Temp 97.7 F 11/25/24 21:50 Pulse 106 H 11/25/24 22:23 Resp 24 H 11/25/24 22:23 BP 113/72 11/25/24 22:23 Pulse Ox 99 11/25/24 22:23 O2 Del Method BiPAP 11/25/24 22:23 Oxygen Flow Rate 2 11/25/24 21:50 BMI result Body Mass Index 32.3 Const: Other: Appearance: Alert. Oriented X3. No acute distress. Eyes: Pupils equal, round and reactive to light. ENT: Pharynx normal. Neck: Normal inspection. Neck supple. No lymph nodes noted. No crepitus CVS: Normal heart rate and rhythm. Pulses normal. Normal S1 and S2 Respiratory: Patient able to speak a few words at a time, wheezing bilaterally, poor air movement Abdomen: Soft and nontender. No rigidity. No distention. Skin: Skin warm and dry. Normal skin color. Normal skin turgor. Extremities: No lower extremity edema. No Lacerations. No Rash Neuro: Oriented X 3. No motor deficit. No sensory deficit. Moving all extremities. No slurred speech. CN 2 through 12 grossly intact Psych: calm, cooperative, normal affect Course Course Course Narrative: Patient receiving IV fluids, patient has history of CHF. IV NS running at 250cc/hr, (1000mL) Patient's vitals are stable, blood pressure 128/71, heart rate 100, respirations 27, oxygen saturation 98 person on nasal cannula which patient uses at baseline 2 L of nasal cannula. Patient is a bit tachypneic, on auscultation, patient has significant wheezing, decreased breath sounds. Patient will be placed on BiPAP. Patient uses BiPAP at home Patient getting empiric treatment with antibiotics, Levaquin, patient is allergic to tetracyclines and macrolides All of patient's labs pending. Medications Administered Generic Name Dose Route Start Last Admin Trade Name Freq PRN Reason Stop Dose Admin Sodium Chloride 1,000 mls @ 250 mls/hr 11/25/24 22:15 11/25/24 22:24 Ns IV 11/26/24 02:14 250 mls/hr .Q4H [place] Administration Discontinued Medications Generic Name Dose Route Start Last Admin Trade Name Brian PRN Reason Stop Dose Admin Albuterol Sulfate 5 mg/ 0 mg 11/25/24 21:58 11/25/24 21:59 Albuterol/Ipratropium 3 ml INHALE 11/25/24 21:59 1 each ONCE ONE Administration Levofloxacin 500 mg in 100 mls @ 100 mls/hr 11/25/24 22:12 11/25/24 22:38 Levaquin IV 11/25/24 23:11 100 mls/hr ONCE ONE Administration Medical Decision Making Medical Decision Making [facility] Narrative: My interpretation of labs: Patient's white blood cell count 22.6, patient has been taking prednisone for several days, recently discharged from the hospital. Otherwise no acute abnormalities. Patient's venous blood gases, patient's pCO2 is slightly elevated at 56, pH normal, bicarb 37. Patient is alert and oriented x3, patient is on BiPAP since she uses it at home at night times. Patient is not on rescue BiPAP. Troponin negative, BNP 115. Serology negative for influenza a, B, RSV and COVID It is possible that patient's symptoms may have been triggered by cocaine snorting. Patient states that she has not done it lately. However, patient known to use cocaine frequently, urine toxicology test pending Chest x-ray does not show any acute abnormalities. Possible pneumonitis? Mentioned above, patient was empirically treated with IV fluids and antibiotics. Differential Diagnosis Differential Diagnoses: The differential diagnosis associated with the presentation includes (COPD versus asthma versus acute on chronic respiratory failure) Admission/Observation Consideration of admission/observation: Escalation of care including admission/observation considered Consult Healthcare Provider Management of the patient was discussed with: Hospitalist Lab Data [facility] Lab Attestation statement: I reviewed the patient's lab results. 11/25/24 22:36 11/25/24 22:36 Labs: Lab Results 11/25/24 11/25/24 Range/Units 22:36 22:43 WBC 22.6 H (4.8-10.8) X10*3/uL RBC 5.53 H (4.20-5.50) X10*6/uL Hgb 12.3 (12.0-16.0) g/dl Hct 41.4 (37.0-47.0) % MCV 74.9 L (80.0-98.0) fL MCH 22.2 L (27.0-33.0) pg MCHC 29.7 L (31.0-35.0) g/dl RDW 17.7 H (11.0-16.0) % Plt Count 391 (160-400) X10*3/uL MPV 8.7 L (9.4-12.3) fL Immature Gran % (Auto) 0.7 H (0.0-0.4) % Neut % (Auto) 88.0 H (45-73) % Lymph % (Auto) 6.9 L (20-40) % Harrison % (Auto) 4.0 (2-11) % Eos % (Auto) 0.3 (0-4) % Baso % (Auto) 0.1 (0-2) % Lymph # (Auto) 1.6 (1.2-4.9) X10*3/uL Harrison # (Auto) 0.9 (0.1-1.2) X10*3/uL Eos # (Auto) 0.1 (0.0-0.4) X10*3/uL Baso # (Auto) 0.0 (0.0-0.2) X10*3/uL Abs Immat Gran (auto) 0.15 H (0.00-0.03) X10*3/uL Absolute Neuts (auto) 19.9 H (2.0-8.3) x10*3/uL Absolute Nucleated RBC 0.000 (0.0-0.012) X10*3/uL Nucleated RBC % (auto) 0.0 (0.0-0.2) /100WBC Hold Blue Top SEE NOTE VBG pH 7.42 (7.32-7.43) VBG pCO2 56 mmHg VBG pO2 46 mmHg VBG HCO3 37 H (22-26) mmol/L VBG O2 Saturation 71.0 % VBG Base Excess 10.9 mmol/L Sodium 138 (135-145) mmol/L Potassium 4.1 (3.3-5.1) mmol/L Chloride 93 L (96-108) mmol/L Carbon Dioxide 32 H (22-29) mmol/L Anion Gap 17 (12-20) BUN 23 H (9-16) mg/dL Creatinine 0.77 (0.5-1.4) mg/dL Estim Creat Clear Calc 70.7 Estimated GFR > 60 Random Glucose 197 H (60-115) mg/dL Lactic Acid 1.7 (0.5-2.0) mmol/L Calcium 9.8 D (8.4-10.2) mg/dL Total Bilirubin 0.3 (0.0-1.0) mg/dL Direct Bilirubin 0.1 (0.0-0.5) mg/dL AST 19 (5-31) U/L ALT 21 (0-31) U/L Alkaline Phosphatase 80 (39-117) U/L Troponin I High Sens 38.4 H D (<3.5-17.0) ng/L B-Natriuretic Peptide 115 H (<100) pg/mL Total Protein 7.3 (6.5-8.0) g/dL Albumin 4.5 (3.5-5.0) g/dL Hold Yellow Top See Note Influenza Type A (PCR) NEGATIVE (Negative) Influenza Type B (PCR) NEGATIVE (Negative) RSV RNA Qual (PCR) NEGATIVE (Negative) SARS-CoV-2 RNA (RT-PCR) NEGATIVE (Negative) Independent Interpretation I performed an independent interpretation of an: EKG Interpretation: My interpretation of EKG: Sinus tachycardia, heart rate 104, no ST segment depression or elevation, no T-wave inversion, QTC 454 Radiology Impression Discussion of test interpretation with radiology: I have reviewed the radiologist's reading. Radiologist Impression: Low lung volumes with mild bibasilar atelectasis and/or pneumonitis. Mild emphysematous changes are redemonstrated. Imaged mediastinum and imaged osseous structures appear unchanged with likely calcific tendinitis calcification adjacent to the left humerus. IMPRESSION: Mild bibasilar atelectasis/pneumonitis. Critical Care Time Critical Care Time Critical Care Time: Yes Total Critical Care Time: 60 Attestation: I have personally provided critical care time. Time includes review of lab data, radiology results, discussion with consultants, and monitoring for potential decompensation. Intervention performed as documented. Discharge Plan Discharge Clinical Impression: Chronic lung disease Patient Disposition: Admitted As Inpatient Prescriptions: No Action (DME) cane Device See Rx Instructions .Route Qty: 1 0RF Rx Instructions: Standard cane (DME) Rollator walker See Rx Instructions .Route .MEDSUPPLY Qty: 1 0RF Rx Instructions: As directed (DME) pulse oximeter See Rx Instructions .Route .MEDSUPPLY Qty: 1 0RF Rx Instructions: As directed (DME) FreeStyle Jemima 3 [place] Misc See Rx Instructions .Route Qty: 1 0RF Rx Instructions: To monitor blood sugar 4 times per day albuterol sulfate 2.5 mg /3 mL (0.083 %) solution for nebulization 2.5 mg inhalation Q4H PRN (Reason: Shortness Of Breath/Wheezing) Qty: 180 6RF theophylline 400 mg tablet extended release 24 hr 400 mg PO BID 90 Days Qty: 180 4RF albuterol sulfate [Ventolin HFA] 90 mcg/actuation HFA aerosol inhaler 2 puff inhalation Q6H PRN (Reason: for wheezing) Qty: 1 6RF acetaminophen 650 mg tablet extended release 650 mg PO Q12H PRN (Reason: pain) 30 Days Qty: 60 0RF aspirin 81 mg tablet,delayed release (DR/EC) 81 mg PO DAILY 90 Days Qty: 90 1RF atorvastatin 40 mg tablet 40 mg PO BEDTIME Qty: 90 0RF (DME) FreeStyle Lite Strips Strip See Rx Instructions .ROUTE .MEDSUPPLY Qty: 100 1RF Rx Instructions: Use to check blood sugar daily or if symptomatic hypo/hypergylcemia calcium carbonate-vitamin D3 500 mg-10 mcg (400 unit) tablet 1 tab PO DAILY Qty: 90 0RF (DME) 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 meter [FreeStyle Lite Meter] Kit See Rx Instructions .ROUTE .MEDSUPPLY Qty: 1 0RF Rx Instructions: Use to check blood sugar daily or if symptomatic for hypo/hyperglycemia esomeprazole magnesium 40 mg capsule,delayed release(DR/EC) 40 mg PO DAILY@0630 Qty: 90 1RF fexofenadine [Elisabeth Allergy] 180 mg tablet 180 mg PO DAILY Qty: 30 3RF furosemide 20 mg tablet 20 mg PO DAILY Qty: 90 3RF gabapentin 800 mg tablet 800 mg PO QID 30 Days Qty: 120 1RF glipizide 5 mg tablet 5 mg PO DAILY Qty: 90 1RF glucose 4 gram tablet,chewable 16 g PO Q15M MDD 8 tabs PRN (Reason: hypoglycemia) Qty: 100 1RF Rx Instructions: until symptoms of low blood sugar are controlled ibuprofen 800 mg tablet 800 mg PO BID PRN (Reason: Headache) 30 Days Qty: 60 0RF Rx Instructions: please use sparingly due to diabetes ipratropium-albuterol 0.5 mg-3 mg(2.5 mg base)/3 mL solution for nebulization 3 ml INHALATION TID Qty: 180 0RF (DME) lancets [FreeStyle Lancets] 28 gauge misc See Rx Instructions .ROUTE .MEDSUPPLY Qty: 100 1RF Rx Instructions: Use to check blood sugar daily or if symptomatic hypo/hypergylcemia losartan 50 mg tablet 50 mg PO DAILY Qty: 90 0RF Stiolto Respimat 2.5-2.5 mcg/actuation mist 2 puff INHALATION DAILY Qty: 4 0RF (DME) EngradeStyle Jemima 3 Plus Sensor Device See Rx Instructions .Route Qty: 2 5RF Rx Instructions: To monitor blood sugars 4 times per day. Change sensor every 15 days (DME) walker Misc See Rx Instructions .Route Qty: 1 0RF Rx Instructions: As directed sertraline 25 mg tablet 25 mg PO DAILY Rx Instructions: Taken with 100mg tab for TDD of 125mg. sertraline 100 mg tablet 100 mg PO DAILY Rx Instructions: TAKE WITH 25MG FOR TOTAL OF 125MG quetiapine [Seroquel] 25 mg tablet 25 mg PO BEDTIME quetiapine [Seroquel] 25 mg tablet 25 mg PO DAILY PRN (Reason: racing thoughts) amoxicillin-pot clavulanate 500-125 mg Tablet 1 tab PO Q12H Qty: 14 0RF dextrose [Glucose Gel] 40 % gel 10 g PO Q15M PRN (Reason: hypoglycemia) Qty: 300 0RF Rx Instructions: until symptoms of low blood sugar are controlled glucagon HCl [Glucagon (HCl) Emergency Kit] 1 mg recon soln 1 mg subcut Q20M PRN (Reason: hypoglycemia) Qty: 1 0RF Rx Instructions: until target blood sugar attained prednisone 20 mg tablet 40 mg PO DAILY Qty: 10 0RF codeine-guaifenesin 10-100 mg/5 mL liquid 10 ml PO Q4-6H PRN (Reason: cough) Qty: 473 0RF nicotine 21 mg/24 hr patch 24 hour 1 patch transdermal Q24H Qty: 28 0RF tramadol 50 mg tablet 50 mg PO Q6H PRN (Reason: pain) Qty: 20 0RF tizanidine 4 mg tablet 4 mg PO Q12H Rx Instructions: do not take concurrently with famotidine Print Language: Greenlandic Sepsis Bolus Exclusion Sepsis Bolus Exclusion CHF/Renal Failure This patient met severe sepsis criteria due to the following condition(s):: Documentation of septic shock (Patient is on BiPAP) In my clinical judgement the administration of 30 ml/kg of crystalloid would be detrimental to this patient due to the patient's following conditions:: Concern for fluid overload Replace the 30 mls/kg with (Zero amount not acceptable and all fluids for severe sepsis must be given at GREATER than 125 mls/hr) Crystalloids amount given in mls: (rate must be at least 150cc/hr): 1,000
[2024-11-25 22:23] VITALS: BP 113/72; PULSE 106; RESP 24; O2SAT 99
[2024-11-25] MEDS: 0.9 % Sodium Chloride 1,000 ML 250 ML IV (22:24)
[2024-11-25] MEDS: levoFLOXacin/D5W 500 MG/100 ML PIGGYBACK 100 MG IV (22:38)
[2024-11-25 22:43] LABS: MANUAL DIFF FLAG NO
[2024-11-25 22:44] LABS: Basophils Percent Auto 0.1 % (0-2); Eosinophils Absolute Auto 0.1 X10*3/uL (0.0-0.4); Eosinophils Percent Auto 0.3 % (0-4); Hematocrit 41.4 % (37.0-47.0); Hemoglobin 12.3 g/dl (12.0-16.0); Imm Gran Abs Auto 0.15 X10*3/uL (0.00-0.03); Imm Gran Pct Auto 0.7 % (0.0-0.4); Lymphocytes Absolute Auto 1.6 X10*3/uL (1.2-4.9); Lymphocytes Percent Auto 6.9 % (20-40); Mean Corpuscular HGB Conc 29.7 g/dl (31.0-35.0); Mean Corpuscular Hemoglobin 22.2 pg (27.0-33.0); Mean Corpuscular Volume 74.9 fL (80.0-98.0); Mean Platelet Volume 8.7 fL (9.4-12.3); Monocytes Absolute Auto 0.9 X10*3/uL (0.1-1.2); Neutrophils Absolute Auto 19.9 x10*3/uL (2.0-8.3); Platelet Count 391 X10*3/uL (160-400); Red Blood Count 5.53 X10*6/uL (4.20-5.50); Red Cell Distribution Width 17.7 % (11.0-16.0); White Blood Count 22.6 X10*3/uL (4.8-10.8)
[2024-11-25 22:47] LABS: VBG Base Excess 10.9 mmol/L; VBG HCO3 37 mmol/L (22-26); VBG pCO2 56 mmHg; VBG pH 7.42 (7.32-7.43); VBG pO2 46 mmHg
[2024-11-25 22:48] LABS: Venous Blood Gas Refer to POC result
[2024-11-25 22:57] LABS: Lactic Acid 1.7 mmol/L (0.5-2.0)
[2024-11-25 22:58] LABS: Alanine Aminotransferase 21 U/L (0-31); Albumin Level 4.5 g/dL (3.5-5.0); Alkaline Phosphatase 80 U/L (39-117); Anion Gap 17 (12-20); Aspartate Amino Transferase 19 U/L (5-31); Bilirubin Direct 0.1 mg/dL (0.0-0.5); Bilirubin Total 0.3 mg/dL (0.0-1.0); Blood Urea Nitrogen 23 mg/dL (9-16); Calcium 9.8 mg/dL (8.4-10.2); Carbon Dioxide 32 mmol/L (22-29); Chloride 93 mmol/L (96-108); Creatinine Clr Calc Pharmacy 70.7; Estimated Glomerular Filt Rate > 60; Glucose Random 197 mg/dL (60-115); Potassium 4.1 mmol/L (3.3-5.1); Sodium 138 mmol/L (135-145); Total Protein 7.3 g/dL (6.5-8.0)
[2024-11-25 23:05] LABS: Troponin-I High Sensitivity 38.4 ng/L (<3.5-17.0)
[2024-11-25 23:09] LABS: B Type Natriuretic Peptide 115 pg/mL (<100)
[2024-11-25 23:22] LABS: Influenza A PCR NEGATIVE (Negative); Influenza B PCR NEGATIVE (Negative); Resp Syncy Virus RNA Qual PCR NEGATIVE (Negative); SARS COV2 PCR INHOUSE NEGATIVE (Negative)
[2024-11-26] VITALS (7 sets, daily range): BP systolic 112–143; BP diastolic 65–76; PULSE 84–106; RESP 16–20; TEMP 35.8–37.1; O2SAT 90–97
--- NOTE | 2024-11-26 01:07 | PC.NURSE ---
Pt requesting to be removed from bipap RT called and removed bipap from pt Pt requesting and given food and drink Pt denies pain at this time Plan of care ongoing.
--- NOTE | 2024-11-26 02:09 | PC.NURSE ---
Pt requesting pain meds for 10/10 chest pain. Hospitalist notified and aware Pt requested and given drink and food Plan of care ongoing.
--- NOTE | 2024-11-26 02:49 | P.HPHOSP_ITS ---
History of Present Illness Date of Service: 11/26/24 Attending physician on admission: Joe Austin Chief Complaint: Shortness of breath Marika Scott is a 54 years old woman with past medical history significant for COPD, chronic hypoxic hypercapnic respiratory failure on BiPAP, obstructive sleep apnea, diastolic heart failure, type 2 diabetes mellitus, cocaine use disorder and tobacco disorder presents to the emergency department complaining of multiple symptoms including: Shortness on breath, chest pain, abdominal pain and cough that started last night. She stated that her BiPAP machine was not working. She has an ongoing tobacco and cocaine user. She did not report any headache, fever or chills. Patient has been hospitalisted multiple occasions with same symptoms. She was recently discharged (09/19/2024) with prednisone and amoxicillin courses. In the ED, she was found to have tachypnea and low-grade tachycardia. Her blood pressure is stable. Oxygen saturation was 98 % on room air. She was placed on BiPAP. At the time of evaluation the patient was on BiPAP. Low workup was remarkable for leukocytosis 22.6. Hemoglobin 12.3 and platelets 391. Venous blood gas showed pH of 7.42, pCO2 of 56. There are no significant electrolyte imbalances. CO2 is 32, BUN 23 and creatinine 0.77. There is no lactic acidosis. Liver function is normal. Troponin is 38.4 and BNP 115. CXR showed mild bibasilar atelectasis/pneumonitis. ECG shows sinus tachycardia with PACs, right ventricle hypertrophy changes and no acute ischemic changes. ED tx: Albuterol, NS 1 L bolus, levofloxacin 500 mg IV. Review of Systems 2 Review of Systems: All 12 systems were reviewed and normal except as noted in HPI. FORMERLY [facility], [facility] Medical History Cocaine use disorder Cocaine abuse GERD (gastroesophageal reflux disease) Constipation Non-insulin dependent type 2 diabetes mellitus HENRY (obstructive sleep apnea) Acute exacerbation of chronic obstructive airways disease Asthma with exacerbation Obesity hypoventilation syndrome COPD (chronic obstructive pulmonary disease) Chronic lung disease Hypoxic respiratory failure Nocturnal hypoxemia Diabetes mellitus COPD exacerbation Crack cocaine use Hyperkalemia Metabolic acidosis Leukocytosis Chest discomfort Chronic renal failure, stage 2 (mild) SOB (shortness of breath) Asthma Smoker Rotator cuff tendonitis GERD (gastroesophageal reflux disease) Chronic idiopathic constipation Bustos's esophagus Depression High triglycerides Gastroparesis Carpal tunnel syndrome of right wrist Nausea & vomiting Hernia Acute and chronic respiratory failure, unspecified whether with hypoxia or hypercapnia HTN (hypertension) Obesity (BMI 30-39.9) Knee pain, bilateral Family History Father Heart disease HENRY (obstructive sleep apnea) Family history of breast cancer Mother Asthma Emphysema, unspecified Bronchitis Smoker Alcoholism Bone marrow disease Maternal Grandmother Diabetes Surgical History History of cholecystectomy (~1988) History of carpal tunnel release Hx of tubal ligation History of pubovaginal sling (~2015) History of umbilical hernia repair (~2001) Hx of section History of open reduction and internal fixation (ORIF) procedure History of esophagogastroduodenoscopy (EGD) Social History Household Members: Family Household Members Other:: sister Housing: House Are you a primary complex care nurse to a significant other at home: No Do you presently have visiting nurse or other home services: Yes ([facility]) Unable to assess alcohol history related to: Unknown Alcohol intake: unknown Comment: Sleeping Patient Tobacco Use Status: Current everyday Tobacco user Tobacco use type: Cigarette Cigarette Packs Per Day: 0.5 Cigarettes Per Day: 10.0 Years Smoked: 40? Smoked in Last 30 Days: No e-Cigarette/Vaping Use: Never Used Second Hand Smoke Exposure: Yes Use of substances other than those prescribed or required for medical reasons: No Substance Use Type: Crack/Cocaine Advance Directives: Yes Advance Directives on File: Yes Advance Directives Date on File: 12/19/23 service: No Current occupational status: disabled 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 Meds Allergies Allergy/AdvReac Type Severity Reaction Status Date / Time doxycycline Allergy Severe Swelling Verified 11/25/24 21:52 varenicline [From CHANTIX] Allergy Severe ANAPHYLAXIS Verified 11/25/24 21:52 azithromycin Allergy Intermediate Rash Verified 11/25/24 21:52 barium sulfate Allergy Intermediate angioedema Verified 11/25/24 21:52 cetirizine Allergy Mild Rash Verified 11/25/24 21:52 famotidine Allergy Mild Rash Verified 11/25/24 21:52 linaclotide [Linzess] Allergy Mild Rash Verified 11/25/24 21:52 Active Medications: Current Medications Sodium Chloride (0.9 % Sodium Chloride Flush 3 Ml Syringe) 3 [facility] Home Medications ?Medication ?Instructions ?Recorded ?Confirmed ?Last Taken ?Type tizanidine 4 mg tablet 4 mg PO Q12H muscle spasm 10/21/24 11/18/24 11/17/24 History quetiapine 25 mg tablet (Seroquel) 25 mg PO BEDTIME hallucinations 11/12/24 11/18/24 11/17/24 History quetiapine 25 mg tablet (Seroquel) 25 mg PO DAILY PRN racing thoughts 11/12/24 11/18/24 11/17/24 History sertraline 100 mg tablet 100 mg PO DAILY 11/12/24 11/18/24 11/17/24 History sertraline 25 mg tablet 25 mg PO DAILY 11/12/24 11/18/24 11/17/24 History Physical Exam 2 Vital Signs and Narrative: Vital Signs: Last Vital Signs Temp 97.7 F 11/25/24 21:50 Pulse 106 H 11/25/24 22:23 Resp 24 H 11/25/24 22:23 BP 113/72 11/25/24 22:23 Pulse Ox 99 11/25/24 22:23 O2 Del Method BiPAP 11/25/24 22:23 Oxygen Flow Rate 2 11/25/24 21:50 BMI result Body Mass Index 32.3 Constitutional - Awake and Alert. On BiPAP. Chronically ill-appearing. Obese. HEENT - PERRL, EOMI Heart - mildly tachycardic. No murmur. Lungs - Normal lung expansion, Normal respiratory effort, No respiratory distress. Tachypnea. Decreased breath sound bilateral. No crackles. Wheezing. Abdomen - NT / ND; +BS; No rebound or guarding Extremities - no calf tenderness bilaterally, no swelling Musculoskeletal - Normal inspection, normal ROM Skin - Warm/Dry Neurological - Alert & oriented x3. No focal weakness grossly noted. Normal speech. Psychological - Appropriate affect Results Labs 11/25/24 22:36 11/25/24 22:36 Labs: Laboratory Results - last 24 hr 11/25/24 11/25/24 22:36 22:43 MCV 74.9 L MCH 22.2 L MCHC 29.7 L RDW 17.7 H Plt Count 391 MPV 8.7 L Immature Gran % (Auto) 0.7 H Neut % (Auto) 88.0 H Lymph % (Auto) 6.9 L [place] % (Auto) 4.0 Eos % (Auto) 0.3 Baso % (Auto) 0.1 Lymph # (Auto) 1.6 [place] # (Auto) 0.9 Eos # (Auto) 0.1 Baso # (Auto) 0.0 Abs Immat Gran (auto) 0.15 H Absolute Neuts (auto) 19.9 H Absolute Nucleated RBC 0.000 Nucleated RBC % (auto) 0.0 Hold Blue Top SEE NOTE VBG pH 7.42 VBG pCO2 56 VBG pO2 46 VBG HCO3 37 H VBG O2 Saturation 71.0 VBG Base Excess 10.9 Anion Gap 17 Estim Creat Clear Calc 70.7 Estimated GFR > 60 Random Glucose 197 H Lactic Acid 1.7 Calcium 9.8 D Total Bilirubin 0.3 Direct Bilirubin 0.1 AST 19 ALT 21 Alkaline Phosphatase 80 B-Natriuretic Peptide 115 H Total Protein 7.3 Albumin 4.5 Hold Yellow Top See Note Influenza Type A (PCR) NEGATIVE Influenza Type B (PCR) NEGATIVE RSV RNA Qual (PCR) NEGATIVE SARS-CoV-2 RNA (RT-PCR) NEGATIVE Assessment and Plan (1) COPD exacerbation: Status: Acute (2) BAHMAN (generalized anxiety disorder): Status: Acute Plan Marika Scott is a 54 y/o woman admitted with: * Acute asthma/COPD exacerbation/pneumonitis due to ongoing cocaine use and tobacco smoking in the setting of underlying obstructive sleep apnea. Admit to hospitalist service. Continue bronchodilator therapy, IV steroids, IV antibiotics, respiratory support with BiPAP and supplemental oxygen as needed. * Chest pain, likely secondary to bronchospasm and use of cocaine. ECG showed no ischemic changes. Continue aspirin. Recheck troponin. * Type 2 diabetes mellitus. Diabetic diet. BG checks before meals at bedtime. Insulin sliding scale and glipizide. * HFpEF. No CHF findings and x-ray. BNP at baseline. Continue Lasix. * Essential hypertension. Continue losartan. * Morbid obesity. BMI 32.3 kg/m2. Weight loss. * Cocaine abuse. Addiction medicine consult. * Mood disorder. Continue home medications. DVT prophylaxis: Heparin Code status: Full Patient required hospitalization due to acute asthma/COPD sounds pneumonitis treatment with IV antibiotics, supplemental oxygen, respiratory support with BiPAP and IV steroids. Quality Stroke Does the patient have a stroke diagnosis?: No VTE Prior VTE?: No VTE Risk Level:: Medical - moderate - high VTE Device Contraindication: N/A - Device Ordered VTE Drug Contraindication: N/A - Med Ordered
[2024-11-26] MEDS: Acetaminophen 1,000 MG/100 ML PIGGYBACK 400 MG IV (03:12)
[2024-11-26] MEDS: methylPREDNISolone Sod Succ 40 MG/ML VIAL IVPUSH ×3 (03:13→19:28)
[2024-11-26] MEDS: Ketorolac Tromethamine 15 MG/ML VIAL IVPUSH (03:13)
--- NOTE | 2024-11-26 03:19 | PC.NURSE ---
[facility] Plan of care ongoing.
--- NOTE | 2024-11-26 03:19 | PC.NURSE ---
Pt requested and given food and drink Plan of care ongoing.
[2024-11-26 04:55] LABS: Amphetamine Screen Urine Not Detected (Not Detect); Barbiturates, Urine Not Detected (Not Detect); Benzodiazepines Screen Urine Not Detected (Not Detect); Buprenorphine Scr Not Detected (Not Detect); Cannabinoid Screen Urine Not Detected (Not Detect); Cocaine Screen Urine POSITIVE (Not Detect); Fentanyl, urine Not Detected (Not Detect); Methadone Screen, Urine Not Detected (Not Detect); Opiate Screen Urine POSITIVE (Not Detect); Oxycodone Screen Urine Not Detected (Not Detect); Phencyclidine Screen Urine Not Detected (Not Detect)
--- NOTE | 2024-11-26 05:28 | MHC.EDTECH ---
pt requesting Seroquel for anxiety, RN notified.
--- NOTE | 2024-11-26 05:37 | PC.NURSE ---
Pt reporting anxiety and requesting meds. Hospitalist notified and aware Plan of care ongoing.
--- NOTE | 2024-11-26 05:39 | MHC.EDTECH ---
pt is requesting asthma treatment, RN notified
--- NOTE | 2024-11-26 05:39 | PC.NURSE ---
Pt requesting neb tx RT called and Amira notified and aware. Plan of care ongoing.
[2024-11-26 05:45] LABS: MANUAL DIFF FLAG NO
[2024-11-26 05:51] LABS: Basophils Percent Auto 0.1 % (0-2); Hematocrit 36.5 % (37.0-47.0); Hemoglobin 10.5 g/dl (12.0-16.0); Imm Gran Abs Auto 0.12 X10*3/uL (0.00-0.03); Imm Gran Pct Auto 0.8 % (0.0-0.4); Lymphocytes Absolute Auto 0.6 X10*3/uL (1.2-4.9); Mean Corpuscular HGB Conc 28.8 g/dl (31.0-35.0); Mean Corpuscular Hemoglobin 22.1 pg (27.0-33.0); Mean Corpuscular Volume 76.8 fL (80.0-98.0); Mean Platelet Volume 9.5 fL (9.4-12.3); Monocytes Absolute Auto 0.8 X10*3/uL (0.1-1.2); Monocytes Percent Auto 5.4 % (2-11); Neutrophils Absolute Auto 13.6 x10*3/uL (2.0-8.3); Neutrophils Percent Auto 89.7 % (45-73); Platelet Count 363 X10*3/uL (160-400); Red Blood Count 4.75 X10*6/uL (4.20-5.50); Red Cell Distribution Width 17.6 % (11.0-16.0); White Blood Count 15.2 X10*3/uL (4.8-10.8)
[2024-11-26 06:13] LABS: Anion Gap 18 (12-20); Blood Urea Nitrogen 28 mg/dL (9-16); Calcium 8.6 mg/dL (8.4-10.2); Carbon Dioxide 29 mmol/L (22-29); Chloride 93 mmol/L (96-108); Creatinine Clr Calc Pharmacy 62.6; Estimated Glomerular Filt Rate > 60; Glucose Random 445 mg/dL (60-115); Magnesium 1.8 mg/dL (1.6-2.6); Potassium 4.6 mmol/L (3.3-5.1); Sodium 135 mmol/L (135-145)
[2024-11-26] MEDS: Albuterol/Iprat 2.5/0.5MG 3 ML AMPUL.NEB INHALE ×4 (07:37→18:53)
[2024-11-26] MEDS: 0.9 % Sodium Chloride Flush 3 ML SYRINGE IVFLUSH ×2 (08:33→17:24)
[2024-11-26] MEDS: Heparin Sodium,Porcine 5,000 UNIT/ML VIAL 5000 UNIT SUBCUT ×2 (08:33→17:24)
--- NOTE | 2024-11-26 08:48 | PC.NURSE ---
Care of Pt assumed at change of shift. Pt rests quietly after eating breakfast. Pharmacy staff at bedside for med rec. Pt awaiting bed assignment.
[2024-11-26 09:24] LABS: Troponin-I High Sensitivity 24.1 ng/L (<3.5-17.0)
--- NOTE | 2024-11-26 09:26 | PHA.MEDREC ---
Pharmacy Consult ? Medication Reconciliation Pharmacy has completed the medication reconciliation. Spoke to patient to confirm med list. Patient states she was recently discharged and the only change was: she is done with Augmentin and Prednisone. Patient states she is still taking Codine-Guaifenesin that was prescribed last discharge. Patient was also asking for Morphine, however it's not part of her home medication list and there are no claims for.
--- NOTE | 2024-11-26 09:50 | PHA.MEDREC ---
Addendum entered by Radha Parmar RPh 11/26/24 10:20: Med rec was reviewed by [facility]. Original Note: Pharmacy Consult ? Medication Reconciliation Pharmacy has completed the medication reconciliation. Spoke to patient to confirm med list. Patient states she was recently discharged and the only change was: she is done with Augmentin and Prednisone. Patient states she is still taking Codine-Guaifenesin that was prescribed last discharge. Patient was also asking for Morphine, however it's not part of her home medication list and there are no claims for. Utilized list from discharge packet from 11/19/24 to confirm med list.
--- NOTE | 2024-11-26 12:00 | PM.EVENT ---
Event Note Date of Service: 11/26/24 Event Note: seen and evaluated feels better overall still wheezy with decrease bilateral air entry continue duonebs and steroids Med rec wean O2 down as tolerated addiciton team to follow Time Spent With Patient Time: Total time managing care of this patient today ____ minutes.
[2024-11-26] MEDS: Nicotine 21 MG PATCH.TD24 TRANSDERMA (12:30)
[2024-11-26] MEDS: Gabapentin 400 MG CAPSULE 800 MG PO ×3 (12:32→20:21)
[2024-11-26] MEDS: TiZANidine HCL 4 MG TABLET PO (12:32)
--- NOTE | 2024-11-26 15:21 | MHC.CM.PN ---
Pt. lives with her sister, she is active with [facility], and goes home via BLS transport. CM met with her this morning and discussed that she is here frequently and the recommendation is for pulmonary rehab, but she goes home and then has to come back. CM asked her to consider rehab following this stay. CM will follow for DC needs.
[2024-11-26] MEDS: traMADoL HCL 50 MG TABLET PO (17:23)
[2024-11-26] MEDS: guaiFEN/Codeine SF 200/20/10ML 10 ML LIQUID PO (17:27)
--- NOTE | 2024-11-26 19:14 | PC.NURSE ---
assumed care of patient at 1900. report received from Amira FLORES
[2024-11-26 19:28] LABS: Glucose, Whole Blood 350 mg/dL (60-115)
[2024-11-26] MEDS: QUEtiapine Fumarate 25 MG TABLET PO (20:18)
[2024-11-26] MEDS: Atorvastatin Calcium 40 MG TABLET PO (20:18)
[2024-11-26] MEDS: Insulin Lispro 100 UNIT/ML 3 ML VIAL SUBCUT (20:18)
[2024-11-26] MEDS: Theophylline Anhydrous ER 400 MG TAB.ER.24H PO (21:15)
[2024-11-26] MEDS: levoFLOXacin/D5W 500 MG/100 ML PIGGYBACK 100 MG IV (21:16)
--- NOTE | 2024-11-26 22:02 | PC.NURSE ---
pt resting comfortably on stretcher in no apparent distress, wearing 2L O2 via oxymask (per pt request). waiting for bed assignment up on med floor. call ott within reach, plan of care continues.
--- NOTE | 2024-11-26 23:28 | MHC.EDTECH ---
care assumed at this time. 2100 POC completed at this time. RN aware of POC 168
[2024-11-26 23:32] LABS: Glucose, Whole Blood 168 mg/dL (60-115)
[2024-11-27] VITALS (7 sets, daily range): BP systolic 139–146; BP diastolic 79–95; PULSE 91–93; RESP 15–22; TEMP 36.2–36.8; O2SAT 92–95
[2024-11-27] MEDS: TiZANidine HCL 4 MG TABLET PO (00:10)
[2024-11-27] MEDS: 0.9 % Sodium Chloride Flush 3 ML SYRINGE IVFLUSH (00:11)
[2024-11-27] MEDS: Heparin Sodium,Porcine 5,000 UNIT/ML VIAL 5000 UNIT SUBCUT ×2 (00:14→07:47)
[2024-11-27] MEDS: methylPREDNISolone Sod Succ 40 MG/ML VIAL IVPUSH (02:16)
--- NOTE | 2024-11-27 02:20 | PC.NURSE ---
Pt medicated per [facility] Plan of care ongoing.
[2024-11-27 04:23] LABS: Glucose, Whole Blood 280 mg/dL (60-115)
[2024-11-27] MEDS: Albuterol/Iprat 2.5/0.5MG 3 ML AMPUL.NEB INHALE ×2 (07:28→11:09)
[2024-11-27] MEDS: Furosemide 20 MG TABLET PO (07:45)
[2024-11-27] MEDS: Insulin Lispro 100 UNIT/ML 3 ML VIAL SUBCUT (07:45)
[2024-11-27] MEDS: Sertraline HCL 25 MG TABLET PO (07:46)
[2024-11-27] MEDS: Sertraline HCL 100 MG TABLET PO (07:46)
[2024-11-27] MEDS: Aspirin Enteric Coated 81 MG TABLET.DR PO (07:46)
[2024-11-27] MEDS: Losartan Potassium 50 MG TABLET PO (07:46)
[2024-11-27] MEDS: glipiZIDE 5 MG TABLET PO (07:46)
[2024-11-27] MEDS: Gabapentin 400 MG CAPSULE 800 MG PO (07:47)
--- NOTE | 2024-11-27 07:47 | PC.NURSE ---
Pt requesting all a.m. meds before breakfast so she has food in her stomach
--- NOTE | 2024-11-27 10:27 | PM.DS ---
DS: Providers Provider Date of Service: 11/27/24 Date of admission: 11/25/24 23:51 Date of discharge: 11/27/24 Primary care physician: LORIE Lazcano- Consults: 11/26/24 03:09 Addiction Medicine Provider Routine Consulting Provider: Addiction Covering Reason for consultation: Ongoing cocaine abuse requiring multiple hospitalizationds Has provider been notified: No 11/27/24 09:18 Inpt - Recovery Team Routine Comment: Reason for consultation: BH/JOE eval DS: Diagnosis Discharge Diagnosis (1) COPD exacerbation: Status: Acute (2) BAHMAN (generalized anxiety disorder): Status: Acute (3) Acute and chronic respiratory failure with hypoxia: Status: Inactive (4) Cocaine use disorder: Status: Acute DS: Summary Hospital Course Hospital Course: Admission note HPI Marika Scott is a 54 years old woman with past medical history significant for COPD, chronic hypoxic hypercapnic respiratory failure on BiPAP, obstructive sleep apnea, diastolic heart failure, type 2 diabetes mellitus, cocaine use disorder and tobacco disorder presents to the emergency department complaining of multiple symptoms including: Shortness on breath, chest pain, abdominal pain and cough that started last night. She stated that her BiPAP machine was not working. She has an ongoing tobacco and cocaine user. She did not report any headache, fever or chills. Patient has been hospitalisted multiple occasions with same symptoms. She was recently discharged (09/19/2024) with prednisone and amoxicillin courses. In the ED, she was found to have tachypnea and low-grade tachycardia. Her blood pressure is stable. Oxygen saturation was 98 % on room air. She was placed on BiPAP. At the time of evaluation the patient was on BiPAP. Low workup was remarkable for leukocytosis 22.6. Hemoglobin 12.3 and platelets 391. Venous blood gas showed pH of 7.42, pCO2 of 56. There are no significant electrolyte imbalances. CO2 is 32, BUN 23 and creatinine 0.77. There is no lactic acidosis. Liver function is normal. Troponin is 38.4 and BNP 115. CXR showed mild bibasilar atelectasis/pneumonitis. ECG shows sinus tachycardia with PACs, right ventricle hypertrophy changes and no acute ischemic changes. ED tx: Albuterol, NS 1 L bolus, levofloxacin 500 mg IV. Hospital course The patient was admitted and treated for COPD exacerbation with acute on chronic hypoxic respiratory failure requiring BiPAP therapy before weaning her down to O2 supplement. responded well to IV steroids, bronchodilator nebulizers and IV antibiotics as CXR showed atelactasis. No evidence of pneumonia. Weaned down to her baseline 2-3L of O2. Advised to quit smoking which she promised to cut down on it. She will be discharged home on tapering dose of Prednisone and to use her home inhalers as prescribed and nebulizer treatment 4 times a day for the next 3 days then as needed. Seen by addiciton team for Cocaine abuse. prescribed Narcan for risk of Fentanyl being mixed with drugs. To follow as outpatient with recovery services. Discharge plan Quit smoking remove the rugs PRednisone tapering dose Use your nebulizer 4 times a day for the next 3 days then as needed continue home inhalers Narcan prescribed for over dose as most drugs has Fentanyl in them Time Attestation Discharge Coordination Time (in mins): 35 Quality: Safe Use of Opioids Does Pt have an Active Cancer Diagnosis on the Problem List?: No Quality: Stroke Does the patient have a stroke diagnosis?: No Physical Exam Vital Signs: Vital Signs: Last Vital Signs Temp 97.2 F 11/27/24 04:20 Pulse 91 11/27/24 08:06 Resp 22 H 11/27/24 08:06 BP 141/95 H 11/27/24 08:06 Pulse Ox 94 11/27/24 08:06 O2 Del Method Oxymask 11/27/24 08:06 O2 Flow Rate 2 11/27/24 08:06 Oxygen Flow Rate 2 11/25/24 21:50 BMI result Body Mass Index 32.3 Const: Other: Constitutional : interactive, not in distress Cardiovascular : no JVP, no lower extremity edema Respiratory : bilateral chest movement, not in resp distress , moving air entry fairly bilaterally, no wheezes, on O2 supplement Gastrointestinal: soft, lax, Non tender Skin : Warm, Dry Neurological : Alert & oriented , No focal deficit DS: Data Data Completed and Pending Completed studies during hospitalization [Text1]: Procedures Assistance with Respiratory Ventilation, 24-96 Consecutive Hours, Continuous Positive Airway Pressure (10/30/24) Assistance with Respiratory Ventilation, Less than 24 Consecutive Hours, Continuous Positive Airway Pressure (10/21/24) Insertion of Endotracheal Airway into Trachea, Via Natural or Artificial Opening (10/30/24) Insertion of Infusion Device into Superior Vena Cava, Percutaneous Approach (11/03/20) Introduction of Vasopressor into Peripheral Vein, Percutaneous Approach (10/30/24) Respiratory Ventilation, Less than 24 Consecutive Hours (10/30/24) Labs on day of discharge: Laboratory Results - last 24 hr 11/26/24 11/26/24 11/27/24 19:25 23:27 04:18 POC Glucose 350 H* 168 H 280 H Preliminary micro results at discharge 11/25/24 22:36 Blood Culture - Preliminary Blood - Venous No growth after 24 hours. 11/25/24 22:36 Blood Culture - Preliminary Blood - Venous No growth after 24 hours. Discharge Plan Discharge Anticipated Discharge Date/Time: 11/27/24 10:20 Patient Disposition: Home, Self-Care Discharge Diagnosis: COPD exacerbation Referrals: Joe Hale FNP-BC [Primary Care Provider] - 1 Week Discharge Medications: New prednisone 10 mg tablet See Taper PO DIRECTED Qty: 30 0RF Taper: Prednisone 40 mg daily for 3 Days and 0 Hour 30 mg daily for 3 Days and 0 Hour 20 mg daily for 3 Days and 0 Hour 10 mg daily for 3 Days and 0 Hour Rx Instructions: see taper instructions naloxone [Narcan] 4 mg/actuation spray,non-aerosol 4 mg intranasal Q2M PRN (Reason: opioid overdose) Qty: 2 0RF Rx Instructions: spray 1 dose into ONE nostril; alternate nostrils w each dose until help arrives Continued (DME) cane Device See Rx Instructions .Route Qty: 1 0RF Rx Instructions: Standard cane (DME) Rollator walker See Rx Instructions .Route .MEDSUPPLY Qty: 1 0RF Rx Instructions: As directed (DME) pulse oximeter See Rx Instructions .Route .MEDSUPPLY Qty: 1 0RF Rx Instructions: As directed (DME) FreeStyle Jemima 3 [place] Misc See Rx Instructions .Route Qty: 1 0RF Rx Instructions: To monitor blood sugar 4 times per day albuterol sulfate 2.5 mg /3 mL (0.083 %) solution for nebulization 2.5 mg inhalation Q4H PRN (Reason: Shortness Of Breath/Wheezing) Qty: 180 6RF theophylline 400 mg tablet extended release 24 hr 400 mg PO BID 90 Days Qty: 180 4RF albuterol sulfate [Ventolin HFA] 90 mcg/actuation HFA aerosol inhaler 2 puff inhalation Q6H PRN (Reason: for wheezing) Qty: 1 6RF acetaminophen 650 mg tablet extended release 650 mg PO Q12H PRN (Reason: pain) 30 Days Qty: 60 0RF aspirin 81 mg tablet,delayed release (DR/EC) 81 mg PO DAILY 90 Days Qty: 90 1RF atorvastatin 40 mg tablet 40 mg PO BEDTIME Qty: 90 0RF (DME) FreeStyle Lite Strips Strip See Rx Instructions .ROUTE .MEDSUPPLY Qty: 100 1RF Rx Instructions: Use to check blood sugar daily or if symptomatic hypo/hypergylcemia calcium carbonate-vitamin D3 500 mg-10 mcg (400 unit) tablet 1 tab PO DAILY Qty: 90 0RF (DME) 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 meter [FreeStyle Lite Meter] Kit See Rx Instructions .ROUTE .MEDSUPPLY Qty: 1 0RF Rx Instructions: Use to check blood sugar daily or if symptomatic for hypo/hyperglycemia esomeprazole magnesium 40 mg capsule,delayed release(DR/EC) 40 mg PO DAILY@0630 Qty: 90 1RF fexofenadine [Elisabeth Allergy] 180 mg tablet 180 mg PO DAILY Qty: 30 3RF furosemide 20 mg tablet 20 mg PO DAILY Qty: 90 3RF gabapentin 800 mg tablet 800 mg PO QID 30 Days Qty: 120 1RF glipizide 5 mg tablet 5 mg PO DAILY Qty: 90 1RF glucose 4 gram tablet,chewable 16 g PO Q15M MDD 8 tabs PRN (Reason: hypoglycemia) Qty: 100 1RF Rx Instructions: until symptoms of low blood sugar are controlled ibuprofen 800 mg tablet 800 mg PO BID PRN (Reason: Headache) 30 Days Qty: 60 0RF Rx Instructions: please use sparingly due to diabetes ipratropium-albuterol 0.5 mg-3 mg(2.5 mg base)/3 mL solution for nebulization 3 ml INHALATION TID Qty: 180 0RF (DME) lancets [FreeStyle Lancets] 28 gauge misc See Rx Instructions .ROUTE .MEDSUPPLY Qty: 100 1RF Rx Instructions: Use to check blood sugar daily or if symptomatic hypo/hypergylcemia losartan 50 mg tablet 50 mg PO DAILY Qty: 90 0RF (DME) FreeStyle Jemima 3 Plus Sensor Device See Rx Instructions .Route Qty: 2 5RF Rx Instructions: To monitor blood sugars 4 times per day. Change sensor every 15 days (DME) [facility] [place] See Rx Instructions .Route Qty: 1 0RF Rx Instructions: As directed sertraline 25 mg tablet 25 mg PO DAILY Rx Instructions: Taken with 100mg tab for TDD of 125mg. sertraline 100 mg tablet 100 mg PO DAILY Rx Instructions: TAKE WITH 25MG FOR TOTAL OF 125MG quetiapine [Seroquel] 25 mg tablet 25 mg PO BEDTIME quetiapine [Seroquel] 25 mg tablet 25 mg PO DAILY PRN (Reason: racing thoughts) dextrose [Glucose Gel] 40 % gel 10 g PO Q15M PRN (Reason: hypoglycemia) Qty: 300 0RF Rx Instructions: until symptoms of low blood sugar are controlled glucagon HCl [Glucagon (HCl) Emergency Kit] 1 mg recon soln 1 mg subcut Q20M PRN (Reason: hypoglycemia) Qty: 1 0RF Rx Instructions: until target blood sugar attained codeine-guaifenesin 10-100 mg/5 mL liquid 10 ml PO Q4-6H PRN (Reason: cough) Qty: 473 0RF Stiolto Respimat 2.5-2.5 mcg/actuation mist 2 puff inhalation DAILY nicotine 21 mg/24 hr patch 24 hour 1 patch transdermal Q24H Qty: 28 0RF tramadol 50 mg tablet 50 mg PO Q6H PRN (Reason: pain) Qty: 20 0RF tizanidine 4 mg tablet 4 mg PO Q12H Rx Instructions: do not take concurrently with famotidine Discharge Orders: Discharge Order (Routine); Ordered 11/27/24 Ordered By: Niru Boyd Diet: Diabetic diet Activity on Discharge: No Running or jogging Stand Alone Forms: Patient Portal Discharge page Print Language: Urdu Care Plan Goals: Quit smoking remove the rugs PRednisone tapering dose Use your nebulizer 4 times a day for the next 3 days then as needed Narcan prescribed for over dose as most drugs has Fentanyl in them continue home inhalers Health Concerns: COPD exacerbation Plan of Treatment: Prednisone tapering dose Assessment: as above
--- NOTE | 2024-11-27 10:53 | MHC.CM.PN ---
Pt has been medically cleared for dc, she will go home via BLS and resume her home care services from [facility].
--- NOTE | 2024-11-27 11:17 | MHC.CARE ---
Pt has been referred to the [facility].
--- NOTE | 2024-11-27 11:37 | MHC.RECOVRN ---
Met with pt in ED10 to discuss ongoing substance use habits, recovery supports, and other resources.? Pt declined appointment for outpatient JOE treatment related to her cocaine use disorder at this time.? Pt did mention wanting to restart Topamax but declined to meet and discuss with provider as she wanted to get discharged elodia.? Pt unable to follow-up with providers due to lack of transportation but has in-home visits by [facility] and medication delivery. [facility] RN to be notified to follow up with pt in case she changes her mind and wants to discuss medications/is able to follow-up. ? Discussed harm reduction strategies such as minimizing use. Pt states she feels motivated to continue using less and keeping herself busy with other things. Recovery supports reviewed and reaffirmed including [facility] services and in-home visits by recovery coordinators.? Discussed with Hermes Winston NP.
[2024-11-28 19:21] LABS: Glucose, Whole Blood 304 mg/dL (60-115)
== END 2024-11-27 16:41 | disposition home or self-care (01) | DRG 816 ==
LOC: HO.ED 23:49 → HO.EDOVER 11-26 00:03
PROVIDERS: Admitting Provider Internal Medicine; Emergency Provider Emergency Medicine; PCP Nurse Practitioner Family; Visit Provider Student in an Organized Health Care Education/Training Program
DX: T40.5X1A Poisoning by cocaine, accidental (unintentional), initial encounter (principal); J96.12 Chronic respiratory failure with hypercapnia; J44.1 Chronic obstructive pulmonary disease with (acute) exacerbation; I50.32 Chronic diastolic (congestive) heart failure; J96.11 Chronic respiratory failure with hypoxia; J45.901 Unspecified asthma with (acute) exacerbation; E66.2 Morbid (severe) obesity with alveolar hypoventilation; I11.0 Hypertensive heart disease with heart failure; J70.2 Acute drug-induced interstitial lung disorders; F17.210 Nicotine dependence, cigarettes, uncomplicated; Z20.822 Contact with and (suspected) exposure to COVID-19; F39 Unspecified mood [affective] disorder; F14.10 Cocaine abuse, uncomplicated; Z68.32 Body mass index [BMI] 32.0-32.9, adult; Z71.6 Tobacco abuse counseling; Z79.82 Long term (current) use of aspirin; Z79.84 Long term (current) use of oral hypoglycemic drugs; Z79.899 Other long term (current) drug therapy
CPT/HCPCS: 0241U; 36415; 71045; 80048; 80076; 80307; 82803; 82947; 83605; 83735; 83880; 84484; 85025; 87040; 93005; 94640; 99285; J0131; J1644; J1885; J1956; J2919; S9485

== ENCOUNTER → 2024-11-25 22:04 | Outpatient (BNV) | payer OTHER, SELFPAY | PROVIDERS: Admitting Provider Internal Medicine; Emergency Provider Emergency Medicine; Visit Provider Internal Medicine Cardiovascular Disease | DX: I49.1 Atrial premature depolarization (principal); I51.7 Cardiomegaly; R00.0 Tachycardia, unspecified | CPT/HCPCS: 93010 ==

== ENCOUNTER → 2024-11-25 22:04 | Outpatient (BNV) | payer OTHER, SELFPAY | PROVIDERS: Admitting Provider Internal Medicine; Emergency Provider Emergency Medicine; Visit Provider Radiology Neuroradiology | DX: R06.02 Shortness of breath (principal); Z87.09 Personal history of other diseases of the respiratory system | CPT/HCPCS: 71045 ==

== ENCOUNTER → 2024-11-25 23:51 | Outpatient (BNV) | payer OTHER, SELFPAY | PROVIDERS: Admitting Provider Internal Medicine; Emergency Provider Emergency Medicine; Visit Provider Internal Medicine | DX: J44.1 Chronic obstructive pulmonary disease with (acute) exacerbation (principal); F41.1 Generalized anxiety disorder | CPT/HCPCS: 99223; 99499 ==

== ENCOUNTER → 2024-11-26 07:25 | Outpatient (BNVA) | payer OTHER, SELFPAY | PROVIDERS: PCP Nurse Practitioner Family; Visit Provider Nurse Practitioner Family | DX: Z13.89 Encounter for screening for other disorder (principal) ==

== ENCOUNTER 2024-11-30 20:27 | Inpatient (IN) | payer OTHER, SELFPAY ==
--- NOTE | ~2024-11-30 | XR_ITS ---
CLINICAL HISTORY: SOB 1 view chest x-ray Comparison: CR - XR CHEST 1V - 11/25/24 23:02 EDT Findings: Heart size mildly enlarged and stable. Pulmonary vasculature within normal limits. Mild interval worsening of bilateral basilar opacities either pneumonia or atelectasis. No significant pleural effusion or pneumothorax. Osseous structures appear stable. IMPRESSION: 1. Interval mild worsening of bilateral basilar pulmonary opacities which may represent pneumonia or atelectasis. This document has been electronically signed by: Lauryn Langston MD on 11/30/2024 21:29:00
[2024-11-30 20:37] VITALS: BP 136/82; BP 155/57; PULSE 103; PULSE 109; RESP 19; O2SAT 100; BMI 29.3
--- NOTE | 2024-11-30 20:41 | ECG_ITS ---
Test Reason : SOB Blood Pressure : */* mmHG Vent. Rate : 114 BPM Atrial Rate : 114 BPM P-R Int : 122 ms QRS Dur : 88 ms QT Int : 320 ms P-R-T Axes : 57 149 56 degrees QTcB Int : 441 ms Sinus tachycardia Right axis deviation Possible Right ventricular hypertrophy Abnormal ECG When compared with ECG of 25-Nov-2024 23:02, No significant changes seen Referred By: Generic ED Physician Electronically Signed By: DAVIS WALKER
[2024-11-30] MEDS: Albuterol Sulfate 7.5 MG, Albuterol/Iprat 2.5/0.5MG 3 ML 3 ML INHALE (20:45)
--- NOTE | 2024-11-30 20:50 | ED_ITS ---
HPI - SOB/Dyspnea General Chief Complaint: Dyspnea Stated Complaint: SOB ASTHMA EXACERBATON Time Seen by Provider: 11/30/24 20:49 Source: patient and EMS Mode of arrival: EMS Limitations: no limitations History of Present Illness ED Provider: HPI Narrative: 54-year-old woman, COPD, HENRY on BiPAP at night, 2 L nasal cannula dependent, continues to be a smoker presented with significant respiratory distress, states has been short of breath for the past 2 days, used her nebulizer without much relief. She received 125 mg of intramuscular Solu-Medrol, as they were not able to obtain a line and started it a DuoNeb treatment. Patient reports cough no fevers or chills. MD elicited complaint: shortness of breath Pertinent past history: COPD Related Data Home Medications ?Medication ?Instructions ?Recorded ?Confirmed tizanidine 4 mg tablet 4 mg PO Q12H muscle spasm 10/21/24 11/26/24 quetiapine 25 mg tablet (Seroquel) 25 mg PO BEDTIME hallucinations 11/12/24 11/26/24 quetiapine 25 mg tablet (Seroquel) 25 mg PO DAILY PRN racing thoughts 11/12/24 11/26/24 sertraline 100 mg tablet 100 mg PO DAILY 11/12/24 11/26/24 sertraline 25 mg tablet 25 mg PO DAILY 11/12/24 11/26/24 tiotropium 2.5 mcg-olodaterol 2.5 2 puff inhalation DAILY 11/26/24 11/26/24 mcg/actuation mist for inhalation (Stiolto Respimat) Previous Rx's ?Medication ?Instructions ?Recorded walker #1 ea 07/14/24 Rollator walker #1 ea 09/16/24 cane #1 ea 09/16/24 pulse oximeter #1 ea 09/16/24 FreeStyle Jemima 3 [place] #1 ea 09/22/24 (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,business department chair,cont) nicotine 21 mg/24 hr daily 1 patch transdermal Q24H #28 ea 10/01/24 transdermal patch tramadol 50 mg tablet 50 mg PO Q6H PRN pain #20 tabs 10/12/24 albuterol sulfate 2.5 mg/3 mL 2.5 mg (3 mL) inhalation Q4H PRN 11/09/24 (0.083 %) solution for nebulization Shortness Of Breath/Wheezing #180 mL albuterol sulfate 90 mcg/actuation 2 puff inhalation Q6H PRN for 11/09/24 aerosol inhaler (Ventolin HFA) wheezing #1 ea theophylline 400 mg 400 mg PO BID 90 days #180 tabs 11/09/24 tablet,extended release 24 hr acetaminophen 650 mg 650 mg PO Q12H PRN pain 30 days 11/12/24 tablet,extended release #60 tabs aspirin 81 mg tablet,delayed 81 mg PO DAILY 90 days #90 tabs 11/12/24 release atorvastatin 40 mg tablet 40 mg PO BEDTIME #90 tabs 11/12/24 blood sugar diagnostic (FreeStyle #100 ea 11/12/24 Lite Strips) 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 meter (FreeStyle #1 ea 11/12/24 Lite Meter kit) calcium 500 mg (as 1 tab PO DAILY #90 tabs 11/12/24 carbonate)-vitamin D3 10 mcg (400 unit) tablet esomeprazole magnesium 40 mg 40 mg PO DAILY@0630 #90 caps 11/12/24 capsule,delayed release fexofenadine 180 mg tablet 180 mg PO DAILY #30 tabs 11/12/24 (Elisabeth Allergy) furosemide 20 mg tablet 20 mg PO DAILY #90 tabs 11/12/24 gabapentin 800 mg tablet 800 mg PO QID Pain 30 days #120 11/12/24 tabs glipizide 5 mg tablet 5 mg PO DAILY #90 tabs 11/12/24 glucose 4 gram chewable tablet 16 g (4 x 4 gram) PO Q15M PRN 11/12/24 hypoglycemia #100 tabs ibuprofen 800 mg tablet 800 mg PO BID PRN Headache 30 days 11/12/24 #60 tabs ipratropium 0.5 mg-albuterol 3 mg 3 ml inhalation TID #180 mL 11/12/24 (2.5 mg base)/3 mL nebulization soln lancets 28 gauge (FreeStyle #100 ea 11/12/24 Lancets) losartan 50 mg tablet 50 mg PO DAILY #90 tabs 11/12/24 dextrose 40 % oral gel (Glucose 10 g PO Q15M PRN hypoglycemia #300 11/13/24 Gel) grams glucagon HCl 1 mg solution for 1 mg subcut Q20M PRN hypoglycemia 05/16/25 injection (Glucagon (HCl) #1 ea Emergency Kit) FreeStyle Jemima 3 Plus Sensor #2 ea 11/17/24 (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 sensor) codeine 10 mg-guaifenesin 100 mg/5 10 ml PO Q4-6H PRN cough #473 mL 11/19/24 mL oral liquid naloxone 4 mg/actuation nasal 4 mg intranasal Q2M PRN opioid 11/27/24 spray (Narcan) overdose #2 ea prednisone 10 mg tablet See Taper PO DIRECTED #30 tabs 11/27/24 Lantus Solostar U-100 Insulin 100 10 unit (0.1 mL) subcut QPM #15 mL 11/30/24 unit/mL (3 mL) subcutaneous pen (insulin glargine) pen needle, diabetic 31 gauge x #100 ea 11/30/2411/13 Allergies Allergy/AdvReac Type Severity Reaction Status Date / Time doxycycline Allergy Severe Swelling Verified 11/30/24 20:39 varenicline [From CHANTIX] Allergy Severe ANAPHYLAXIS Verified 11/30/24 20:39 azithromycin Allergy Intermediate Rash Verified 11/30/24 20:39 barium sulfate Allergy Intermediate angioedema Verified 11/30/24 20:39 cetirizine Allergy Mild Rash Verified 11/30/24 20:39 famotidine Allergy Mild Rash Verified 11/30/24 20:39 linaclotide [Linzess] Allergy Mild Rash Verified 11/30/24 20:39 Review of Systems 2 Constitutional: Constitutional: Reports as per HPI [facility] Past Medical History Medical History Cocaine use disorder Cocaine abuse GERD (gastroesophageal reflux disease) Constipation Non-insulin dependent type 2 diabetes mellitus HENRY (obstructive sleep apnea) Acute exacerbation of chronic obstructive airways disease Asthma with exacerbation Obesity hypoventilation syndrome COPD (chronic obstructive pulmonary disease) Chronic lung disease Hypoxic respiratory failure Nocturnal hypoxemia Diabetes mellitus COPD exacerbation Crack cocaine use Hyperkalemia Metabolic acidosis Leukocytosis Chest discomfort Chronic renal failure, stage 2 (mild) SOB (shortness of breath) Asthma Smoker Rotator cuff tendonitis GERD (gastroesophageal reflux disease) Chronic idiopathic constipation Bustos's esophagus Depression High triglycerides Gastroparesis Carpal tunnel syndrome of right wrist Nausea & vomiting Hernia Acute and chronic respiratory failure, unspecified whether with hypoxia or hypercapnia HTN (hypertension) Obesity (BMI 30-39.9) Knee pain, bilateral Surgical History History of cholecystectomy (~1988) History of carpal tunnel release Hx of tubal ligation History of pubovaginal sling (~2015) History of umbilical hernia repair (~2001) Hx of section History of open reduction and internal fixation (ORIF) procedure History of esophagogastroduodenoscopy (EGD) Family History Family History Father Heart disease HENRY (obstructive sleep apnea) Family history of breast cancer Mother Asthma Emphysema, unspecified Bronchitis Smoker Alcoholism Bone marrow disease Maternal Grandmother Diabetes Social History Social History Household Members: Family Household Members Other:: sister Housing: House Are you a primary animal care service worker to a significant other at home: No Do you presently have visiting nurse or other home services: Yes ([facility]) Unable to assess alcohol history related to: Unknown Alcohol intake: unknown Comment: Sleeping Patient Tobacco Use Status: Current everyday Tobacco user Tobacco use type: Cigarette Cigarette Packs Per Day: 0.5 Cigarettes Per Day: 10.0 Years Smoked: 40? e-Cigarette/Vaping Use: Never Used Second Hand Smoke Exposure: Yes Substance Use Type: Crack/Cocaine Advance Directives: Yes Advance Directives on File: Yes Advance Directives Date on File: 12/19/23 Do you have a plan to hurt others: No Plan service: No Current occupational status: disabled 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 Physical Exam 2 Vital Signs: Vital Signs: Last Vital Signs Pulse 101 H 11/30/24 20:51 Resp 22 H 11/30/24 20:58 BP 136/82 11/30/24 20:37 Pulse Ox 100 11/30/24 20:37 O2 Del Method BiPAP 11/30/24 20:37 BMI result Body Mass Index 29.3 Const: Other: * Gen: ?Dyspneic * CV: RRR, no obvious murmurs appreciated * Resp: Not moving much air on initial evaluation * Abd: ?Bowel sounds are present, no tenderness no rebound no rigidity * MSK: FROM, strength 5/5 all extremities * Skin: Warm, dry, intact, * Neuro: ?Alert and oriented x3, moving upper and lower extremities symmetrically, no obvious facial asymmetry noted Medications Administered Discontinued Medications Generic Name Dose Route Start Last Admin Trade Name Brian PRN Reason Stop Dose Admin Albuterol Sulfate 7.5 mg/ 0 mg 11/30/24 20:40 11/30/24 20:45 Albuterol/Ipratropium 3 ml INHALE 11/30/24 20:41 10 each ONCE ONE Administration Medical Decision Making Medical Decision Making [facility] Narrative: 20:55 patient presented with significant dyspnea, some improvement in from being on BiPAP from EMS, I was able to remove BiPAP and she was still significantly dyspneic so we are going to place the BiPAP back on I will I did obtain history from her seems that she continues to smoke and this is a recurrent issue and she has been intubated in the and I feel that she is very quickly improving and we will give additional albuterol. Other considerations as below, I do not suspect PE based on presentation and recurrent COPD. Of course pneumonia pneumothorax or considerations as well does not appear to be in CHF. Anticipating admission. Her care will be signed out to incoming provider. patient's see if significant respiratory history of COPD hypoxic hypercapnic respiratory failure on BiPAP multiple intubations recent discharge on 11/27 your comes here for acute shortness a breath workup showed bilateral basilar atelectasis / pneumonia patient on prednisone will admit patient for further evaluation and respiratory support Differential Diagnosis Differential Diagnoses: The differential diagnosis associated with the presentation includes CHF, COPD exacerbation, pneumonia, pneumothorax, ACS, PE, Admission/Observation Consideration of admission/observation: Escalation of care including admission/observation considered Lab Data [facility] Lab Attestation statement: I reviewed the patient's lab results. 11/30/24 20:44 11/30/24 20:44 Labs: Lab Results 11/30/24 11/30/24 11/30/24 Range/Units 20:44 20:45 20:50 WBC 17.5 H (4.8-10.8) X10*3/uL RBC 5.04 (4.20-5.50) X10*6/uL Hgb 11.3 L (12.0-16.0) g/dl Hct 37.6 (37.0-47.0) % MCV 74.6 L (80.0-98.0) fL MCH 22.4 L (27.0-33.0) pg MCHC 30.1 L (31.0-35.0) g/dl RDW 17.8 H (11.0-16.0) % Plt Count 299 (160-400) X10*3/uL MPV 9.7 (9.4-12.3) fL Immature Gran % (Auto) 0.5 H (0.0-0.4) % Neut % (Auto) 71.6 (45-73) % Lymph % (Auto) 20.1 (20-40) % [place] % (Auto) 7.1 (2-11) % Eos % (Auto) 0.6 (0-4) % Baso % (Auto) 0.1 (0-2) % Lymph # (Auto) 3.5 (1.2-4.9) X10*3/uL [place] # (Auto) 1.3 H (0.1-1.2) X10*3/uL Eos # (Auto) 0.1 (0.0-0.4) X10*3/uL Baso # (Auto) 0.0 (0.0-0.2) X10*3/uL Abs Immat Gran (auto) 0.09 H (0.00-0.03) X10*3/uL Absolute Neuts (auto) 12.5 H (2.0-8.3) x10*3/uL Absolute Nucleated RBC 0.000 (0.0-0.012) X10*3/uL Nucleated RBC % (auto) 0.0 (0.0-0.2) /100WBC PT 9.9 L D (10.9-12.4) SEC INR 0.9 (0.9-1.1) VBG pH 7.47 H (7.32-7.43) VBG pCO2 41 mmHg VBG pO2 65 mmHg VBG HCO3 30 H (22-26) mmol/L VBG O2 Saturation 90.0 % VBG Base Excess 6.8 mmol/L Sodium 137 (135-145) mmol/L Potassium 5.5 H (3.3-5.1) mmol/L Chloride 99 (96-108) mmol/L Carbon Dioxide 27 (22-29) mmol/L Anion Gap 17 (12-20) BUN 22 H (9-16) mg/dL Creatinine 1.11 (0.5-1.4) mg/dL Estim Creat Clear Calc 48.6 Estimated GFR 51 Random Glucose 137 H (60-115) mg/dL Calcium 8.9 (8.4-10.2) mg/dL Total Bilirubin 0.2 (0.0-1.0) mg/dL AST 43 H (5-31) U/L ALT 25 (0-31) U/L Alkaline Phosphatase 99 (39-117) U/L Troponin I High Sens 26.7 H (<3.5-17.0) ng/L Total Protein 7.4 (6.5-8.0) g/dL Albumin 4.1 (3.5-5.0) g/dL Influenza Type A (PCR) NEGATIVE (Negative) Influenza Type B (PCR) NEGATIVE (Negative) RSV RNA Qual (PCR) NEGATIVE (Negative) SARS-CoV-2 RNA (RT-PCR) NEGATIVE (Negative) ABG Data Attestation ABG: I personally reviewed and interpreted this ABG as follows: Interpretation: VBG without significant CO2 retention Independent Interpretation I performed an independent interpretation of an: EKG (114 otherwise normal ECG without dysrhythmia, AV sidra blocks or ST-T changes to suspect underlying ACS, my independent interpretation) and Plain X-Ray Interpretation: sinus tachycardia right axis deviation ventricular rate 114 no acute STT wave changes no acute ischemia Radiology Impression Discussion of test interpretation with radiology: I have reviewed the radiologist's reading. Radiologist Impression: [place] [id number] XRay Report Signed Patient: Marika Scott MR#: [id number] : 1970 Acct:[id number] Age/Sex: 54 / F ADM Date: 11/30/24 Loc: .ED Attending Dr: Ordering Physician: Goran Hays DO Date of Service: 11/30/24 Procedure(s): XR chest 1V Accession Number(s): [id number] cc: Goran Hays DO~ CLINICAL HISTORY: SOB 1 view chest x-ray Comparison: CR - XR CHEST 1V - 11/25/24 23:02 EDT Findings: Heart size mildly enlarged and stable. Pulmonary vasculature within normal limits. Mild interval worsening of bilateral basilar opacities either pneumonia or atelectasis. No significant pleural effusion or pneumothorax. Osseous structures appear stable. IMPRESSION: 1. Interval mild worsening of bilateral basilar pulmonary opacities which may represent pneumonia or atelectasis. This document has been electronically signed by: Lauryn Langston MD on 11/30/2024 21:29:00 Critical Care Time Critical Care Time Critical Care Time: Yes Total Critical Care Time: 35 Attestation: Time is exclusive of separately billable procedures. Time includes: direct patient care, patient reassessment, coordination of patient care, interpretation of data (laboratory data, pulse oximetry, arterial blood gases and chest xrays), review of patient's medical records, medical consultation and documentation of patient care. Procedures excluded from critical care time: central intravenous line placement and electrocardiography. Discharge Plan Discharge Clinical Impression: Acute exacerbation of chronic obstructive pulmonary disease Prescriptions: No Action (DME) cane Device See Rx Instructions .Route Qty: 1 0RF Rx Instructions: Standard cane (DME) Rollator walker See Rx Instructions .Route .MEDSUPPLY Qty: 1 0RF Rx Instructions: As directed (DME) pulse oximeter See Rx Instructions .Route .MEDSUPPLY Qty: 1 0RF Rx Instructions: As directed (DME) FreeStyle Jemima 3 [place] Misc See Rx Instructions .Route Qty: 1 0RF Rx Instructions: To monitor blood sugar 4 times per day albuterol sulfate 2.5 mg /3 mL (0.083 %) solution for nebulization 2.5 mg inhalation Q4H PRN (Reason: Shortness Of Breath/Wheezing) Qty: 180 6RF theophylline 400 mg tablet extended release 24 hr 400 mg PO BID 90 Days Qty: 180 4RF albuterol sulfate [Ventolin HFA] 90 mcg/actuation HFA aerosol inhaler 2 puff inhalation Q6H PRN (Reason: for wheezing) Qty: 1 6RF acetaminophen 650 mg tablet extended release 650 mg PO Q12H PRN (Reason: pain) 30 Days Qty: 60 0RF aspirin 81 mg tablet,delayed release (DR/EC) 81 mg PO DAILY 90 Days Qty: 90 1RF atorvastatin 40 mg tablet 40 mg PO BEDTIME Qty: 90 0RF (DME) FreeStyle Lite Strips Strip See Rx Instructions .ROUTE .MEDSUPPLY Qty: 100 1RF Rx Instructions: Use to check blood sugar daily or if symptomatic hypo/hypergylcemia calcium carbonate-vitamin D3 500 mg-10 mcg (400 unit) tablet 1 tab PO DAILY Qty: 90 0RF (DME) 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 meter [FreeStyle Lite Meter] Kit See Rx Instructions .ROUTE .MEDSUPPLY Qty: 1 0RF Rx Instructions: Use to check blood sugar daily or if symptomatic for hypo/hyperglycemia esomeprazole magnesium 40 mg capsule,delayed release(DR/EC) 40 mg PO DAILY@0630 Qty: 90 1RF fexofenadine [Elisabeth Allergy] 180 mg tablet 180 mg PO DAILY Qty: 30 3RF furosemide 20 mg tablet 20 mg PO DAILY Qty: 90 3RF gabapentin 800 mg tablet 800 mg PO QID 30 Days Qty: 120 1RF glipizide 5 mg tablet 5 mg PO DAILY Qty: 90 1RF glucose 4 gram tablet,chewable 16 g PO Q15M MDD 8 tabs PRN (Reason: hypoglycemia) Qty: 100 1RF Rx Instructions: until symptoms of low blood sugar are controlled ibuprofen 800 mg tablet 800 mg PO BID PRN (Reason: Headache) 30 Days Qty: 60 0RF Rx Instructions: please use sparingly due to diabetes ipratropium-albuterol 0.5 mg-3 mg(2.5 mg base)/3 mL solution for nebulization 3 ml INHALATION TID Qty: 180 0RF (DME) lancets [FreeStyle Lancets] 28 gauge misc See Rx Instructions .ROUTE .MEDSUPPLY Qty: 100 1RF Rx Instructions: Use to check blood sugar daily or if symptomatic hypo/hypergylcemia losartan 50 mg tablet 50 mg PO DAILY Qty: 90 0RF (DME) FreeStyle Jemima 3 Plus Sensor Device See Rx Instructions .Route Qty: 2 5RF Rx Instructions: To monitor blood sugars 4 times per day. Change sensor every 15 days insulin glargine [Lantus Solostar U-100 Insulin] 100 unit/mL (3 mL) insulin pen 10 unit subcut QPM Qty: 15 0RF (DME) pen needle, diabetic 31 gauge x 5/16 needle See Rx Instructions .Route Qty: 100 0RF Rx Instructions: Use to inject insulin once a day (DME) walker Misc See Rx Instructions .Route Qty: 1 0RF Rx Instructions: As directed sertraline 25 mg tablet 25 mg PO DAILY Rx Instructions: Taken with 100mg tab for TDD of 125mg. sertraline 100 mg tablet 100 mg PO DAILY Rx Instructions: TAKE WITH 25MG FOR TOTAL OF 125MG quetiapine [Seroquel] 25 mg tablet 25 mg PO BEDTIME quetiapine [Seroquel] 25 mg tablet 25 mg PO DAILY PRN (Reason: racing thoughts) dextrose [Glucose Gel] 40 % gel 10 g PO Q15M PRN (Reason: hypoglycemia) Qty: 300 0RF Rx Instructions: until symptoms of low blood sugar are controlled glucagon HCl [Glucagon (HCl) Emergency Kit] 1 mg recon soln 1 mg subcut Q20M PRN (Reason: hypoglycemia) Qty: 1 0RF Rx Instructions: until target blood sugar attained codeine-guaifenesin 10-100 mg/5 mL liquid 10 ml PO Q4-6H PRN (Reason: cough) Qty: 473 0RF Stiolto Respimat 2.5-2.5 mcg/actuation mist 2 puff inhalation DAILY prednisone 10 mg tablet See Taper PO DIRECTED Qty: 30 0RF Taper: Prednisone 40 mg daily for 3 Days and 0 Hour 30 mg daily for 3 Days and 0 Hour 20 mg daily for 3 Days and 0 Hour 10 mg daily for 3 Days and 0 Hour Rx Instructions: see taper instructions naloxone [Narcan] 4 mg/actuation spray,non-aerosol 4 mg intranasal Q2M PRN (Reason: opioid overdose) Qty: 2 0RF Rx Instructions: spray 1 dose into ONE nostril; alternate nostrils w each dose until help arrives nicotine 21 mg/24 hr patch 24 hour 1 patch transdermal Q24H Qty: 28 0RF tramadol 50 mg tablet 50 mg PO Q6H PRN (Reason: pain) Qty: 20 0RF tizanidine 4 mg tablet 4 mg PO Q12H Rx Instructions: do not take concurrently with famotidine Print Language: Spanish
[2024-11-30 20:51] VITALS: PULSE 101; RESP 18; O2SAT 97
[2024-11-30 20:51] LABS: Basophils Percent Auto 0.1 % (0-2); Eosinophils Absolute Auto 0.1 X10*3/uL (0.0-0.4); Eosinophils Percent Auto 0.6 % (0-4); Hematocrit 37.6 % (37.0-47.0); Hemoglobin 11.3 g/dl (12.0-16.0); Imm Gran Abs Auto 0.09 X10*3/uL (0.00-0.03); Imm Gran Pct Auto 0.5 % (0.0-0.4); Lymphocytes Absolute Auto 3.5 X10*3/uL (1.2-4.9); Lymphocytes Percent Auto 20.1 % (20-40); MANUAL DIFF FLAG NO; Mean Corpuscular HGB Conc 30.1 g/dl (31.0-35.0); Mean Corpuscular Hemoglobin 22.4 pg (27.0-33.0); Mean Corpuscular Volume 74.6 fL (80.0-98.0); Mean Platelet Volume 9.7 fL (9.4-12.3); Monocytes Absolute Auto 1.3 X10*3/uL (0.1-1.2); Monocytes Percent Auto 7.1 % (2-11); Neutrophils Absolute Auto 12.5 x10*3/uL (2.0-8.3); Neutrophils Percent Auto 71.6 % (45-73); Platelet Count 299 X10*3/uL (160-400); Red Blood Count 5.04 X10*6/uL (4.20-5.50); Red Cell Distribution Width 17.8 % (11.0-16.0); White Blood Count 17.5 X10*3/uL (4.8-10.8)
[2024-11-30 20:52] LABS: Venous Blood Gas Refer to POC result
[2024-11-30 20:53] LABS: VBG Base Excess 6.8 mmol/L; VBG HCO3 30 mmol/L (22-26); VBG pCO2 41 mmHg; VBG pH 7.47 (7.32-7.43); VBG pO2 65 mmHg
[2024-11-30 20:58] VITALS: PULSE 107; RESP 22; O2SAT 97
[2024-11-30 20:59] LABS: INTERNATIONAL NORM RATIO 0.9 (0.9-1.1); Prothrombin Time 9.9 SEC (10.9-12.4)
[2024-11-30 21:07] LABS: Alanine Aminotransferase 25 U/L (0-31); Albumin Level 4.1 g/dL (3.5-5.0); Alkaline Phosphatase 99 U/L (39-117); Anion Gap 17 (12-20); Aspartate Amino Transferase 43 U/L (5-31); Bilirubin Total 0.2 mg/dL (0.0-1.0); Blood Urea Nitrogen 22 mg/dL (9-16); Calcium 8.9 mg/dL (8.4-10.2); Carbon Dioxide 27 mmol/L (22-29); Chloride 99 mmol/L (96-108); Creatinine Clr Calc Pharmacy 48.6; Estimated Glomerular Filt Rate 51; Glucose Random 137 mg/dL (60-115); Potassium 5.5 mmol/L (3.3-5.1); Sodium 137 mmol/L (135-145); Total Protein 7.4 g/dL (6.5-8.0)
[2024-11-30 21:12] LABS: Troponin-I High Sensitivity 26.7 ng/L (<3.5-17.0)
[2024-11-30 21:33] LABS: Influenza A PCR NEGATIVE (Negative); Influenza B PCR NEGATIVE (Negative); Resp Syncy Virus RNA Qual PCR NEGATIVE (Negative); SARS COV2 PCR INHOUSE NEGATIVE (Negative)
[2024-11-30] MEDS: levoFLOXacin/D5W 750 MG/150 ML PIGGYBACK 100 MG IV (22:59)
--- NOTE | 2024-11-30 23:07 | P.HPHOSP_ITS ---
History of Present Illness Date of Service: 11/30/24 Attending physician on admission: Cortez Houston Chief Complaint: Respiratory distress pt is a 54 yo f with a pmhx significant for COPD and chronic respiratory failure with hypoxia and hypercapnia on BiPAP at night, HENRY/OHS, HFpEF, diabetes mellitus, cocaine use disorder, and tobacco use disorder, who presented to the ED last night due to SOB x2 days, yellow productive cough, nausea, and chills. she also complains of intermittent chest pain and cannot describe it. nothing triggers it, it occurs randomly. She was in respiratory distress when EMS arrived and she was placed on BiPAP and given 126mg solumedrol and a duoneb with some improvement. when the pt arrived to the ED she was tachycardic and tachypneic and found to have bilateral pneumonia. she was started on levaquin and ceftriaxone and has jsut transitioned off BiPAP. Review of Systems 2 Constitutional: Constitutional: Denies body ache(s), Reports chills, Denies fatigue, Denies fever(s) and Denies headache(s) Eyes: Eyes: Denies change in vision and Denies photophobia ENT: Denies headache(s), Denies nasal congestion, Denies nasal discharge and Denies sore throat Cardiovascular: Cardiovascular: Reports chest pain, Denies rapid heart rate, Denies leg edema, Denies lightheadedness and Reports dyspnea Respiratory: Respiratory: Reports dyspnea and Reports wheezing Gastrointestinal: Gastrointestinal: Denies abdominal pain, Denies diarrhea, Reports nausea and Denies vomiting Genitourinary: Genitourinary: Denies difficulty voiding, Denies dysuria and Denies urinary urgency Musculoskeletal: Musculoskeletal: Denies back pain and Denies myalgias Integumentary/Breasts: Skin/Breast: Denies rash Neurologic: Denies confusion and Denies headache(s) Psychiatric: Psychiatric: Denies confusion Endocrine: Endocrine: Denies fatigue Hematologic/Lymphatic: Hematologic/Lymphatic: Denies easy bleeding and Denies easy bruising Allergic/Immunologic: Allergic/Immunologic: Reports wheezing [facility] Medical History Cocaine use disorder Cocaine abuse GERD (gastroesophageal reflux disease) Constipation Non-insulin dependent type 2 diabetes mellitus HENRY (obstructive sleep apnea) Acute exacerbation of chronic obstructive airways disease Asthma with exacerbation Obesity hypoventilation syndrome COPD (chronic obstructive pulmonary disease) Chronic lung disease Hypoxic respiratory failure Nocturnal hypoxemia Diabetes mellitus COPD exacerbation Crack cocaine use Hyperkalemia Metabolic acidosis Leukocytosis Chest discomfort Chronic renal failure, stage 2 (mild) SOB (shortness of breath) Asthma Smoker Rotator cuff tendonitis GERD (gastroesophageal reflux disease) Chronic idiopathic constipation Bustos's esophagus Depression High triglycerides Gastroparesis Carpal tunnel syndrome of right wrist Nausea & vomiting Hernia Acute and chronic respiratory failure, unspecified whether with hypoxia or hypercapnia HTN (hypertension) Obesity (BMI 30-39.9) Knee pain, bilateral Family History Father Heart disease HENRY (obstructive sleep apnea) Family history of breast cancer Mother Asthma Emphysema, unspecified Bronchitis Smoker Alcoholism Bone marrow disease Maternal Grandmother Diabetes Surgical History History of cholecystectomy (~1988) History of carpal tunnel release Hx of tubal ligation History of pubovaginal sling (~2015) History of umbilical hernia repair (~2001) Hx of section History of open reduction and internal fixation (ORIF) procedure History of esophagogastroduodenoscopy (EGD) Social History Household Members: Family Household Members Other:: sister Housing: House Are you a primary long term care social worker to a significant other at home: No Do you presently have visiting nurse or other home services: Yes ([facility]) Unable to assess alcohol history related to: Unknown Alcohol intake: unknown Comment: Sleeping Patient Tobacco Use Status: Current everyday Tobacco user Tobacco use type: Cigarette Cigarette Packs Per Day: 0.5 Cigarettes Per Day: 10.0 Years Smoked: 40? Smoked in Last 30 Days: Yes e-Cigarette/Vaping Use: Never Used Second Hand Smoke Exposure: Yes Use of substances other than those prescribed or required for medical reasons: No Substance Use Type: Crack/Cocaine Advance Directives: Yes Advance Directives on File: Yes Advance Directives Date on File: 12/19/23 Do you have a plan to hurt others: No Plan Nutrition Risks: No Nutritional Risk Patient : No service: No Current occupational status: disabled 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 Narrative: no etoh, smokes 1/2 ppd, uses crack cocaine every other day Meds Allergies Allergy/AdvReac Type Severity Reaction Status Date / Time doxycycline Allergy Severe Swelling Verified 11/30/24 20:39 [email or web address] [From CHANTIX] Allergy Severe ANAPHYLAXIS Verified 11/30/24 20:39 azithromycin Allergy Intermediate Rash Verified 11/30/24 20:39 barium sulfate Allergy Intermediate angioedema Verified 11/30/24 20:39 cetirizine Allergy Mild Rash Verified 11/30/24 20:39 famotidine Allergy Mild Rash Verified 11/30/24 20:39 linaclotide [Linzess] Allergy Mild Rash Verified 11/30/24 20:39 Active Medications: Current Medications Levofloxacin (Levaquin) 750 mg in 150 mls @ 100 mls/hr IV ONCE ONE Stop: 12/01/24 00:14 Last Admin: 11/30/24 22:59 Dose: 100 mls/hr Home Medications ?Medication ?Instructions ?Recorded ?Confirmed ?Last Taken ?Type tizanidine 4 mg tablet 4 mg PO Q12H muscle spasm 10/21/24 11/26/24 11/24/24 History quetiapine 25 mg tablet (Seroquel) 25 mg PO BEDTIME hallucinations 11/12/24 11/26/24 11/24/24 History quetiapine 25 mg tablet (Seroquel) 25 mg PO DAILY PRN racing thoughts 11/12/24 11/26/24 11/17/24 History sertraline 100 mg tablet 100 mg PO DAILY 11/12/24 11/26/24 11/24/24 History sertraline 25 mg tablet 25 mg PO DAILY 11/12/24 11/26/24 11/24/24 History tiotropium 2.5 mcg-olodaterol 2.5 2 puff inhalation DAILY 11/26/24 11/26/24 11/24/24 History mcg/actuation mist for inhalation (Stiolto Respimat) Physical Exam 2 Vital Signs and Narrative: Vital Signs: Last Vital Signs Pulse 101 H 11/30/24 20:51 Resp 22 H 11/30/24 20:58 BP 136/82 11/30/24 20:37 Pulse Ox 100 11/30/24 20:37 O2 Del Method BiPAP 11/30/24 20:37 BMI result Body Mass Index 29.3 General: AOx3, no acute distress, using NC @3L, eating in bed Resp: no wheezing or crackles. diminished throughout CVS: S1, S2, RRR GI: +BS, NT, no distention Skin: Warm, dry Neuro: Cranial nerves II-XII grossly intact bilaterally. Motor grossly intact bilaterally Extremities: No LE edema Psych: Appropriate affect Const: General: No confusion Orientation/consciousness: No confusion Eyes: Direct Ophthalmoscopy: No photophobia Neuro: General: No confusion Results Labs 11/30/24 20:44 11/30/24 20:44 Labs: Laboratory Results - last 24 hr 11/30/24 11/30/24 11/30/24 20:44 20:45 20:50 MCV 74.6 L MCH 22.4 L MCHC 30.1 L RDW 17.8 H Plt Count 299 MPV 9.7 Immature Gran % (Auto) 0.5 H Neut % (Auto) 71.6 Lymph % (Auto) 20.1 Christian % (Auto) 7.1 Eos % (Auto) 0.6 Baso % (Auto) 0.1 Lymph # (Auto) 3.5 Christian # (Auto) 1.3 H Eos # (Auto) 0.1 Baso # (Auto) 0.0 Abs Immat Gran (auto) 0.09 H Absolute Neuts (auto) 12.5 H Absolute Nucleated RBC 0.000 Nucleated RBC % (auto) 0.0 PT 9.9 L D INR 0.9 VBG pH 7.47 H VBG pCO2 41 VBG pO2 65 VBG HCO3 30 H VBG O2 Saturation 90.0 VBG Base Excess 6.8 Anion Gap 17 Estim Creat Clear Calc 48.6 Estimated GFR 51 Random Glucose 137 H Calcium 8.9 Total Bilirubin 0.2 AST 43 H ALT 25 Alkaline Phosphatase 99 Troponin I High Sens 26.7 H Total Protein 7.4 Albumin 4.1 Influenza Type A (PCR) NEGATIVE Influenza Type B (PCR) NEGATIVE RSV RNA Qual (PCR) NEGATIVE SARS-CoV-2 RNA (RT-PCR) NEGATIVE Assessment and Plan (1) Acute on chronic respiratory failure with hypoxia and hypercapnia: Status: Acute (2) Sepsis: Qualifiers: Sepsis acute organ dysfunction status: without acute organ dysfunction Status: Acute (3) Pneumonia: Qualifiers: Laterality: bilateral Pneumonia type: due to unspecified organism Status: Resolved (4) COPD with acute exacerbation: Status: Acute (5) Acute hyperkalemia: Status: Acute (6) Chest discomfort: Status: Acute (7) Cocaine abuse: Status: Chronic (8) Tobacco use: Status: Chronic Plan pt is a 54 yo f with a pmhx significant for COPD and chronic respiratory failure with hypoxia and hypercapnia on BiPAP at night, HENRY/OHS, HFpEF, diabetes mellitus, cocaine use disorder, and tobacco use disorder, who presented to the ED last night due to SOB x2 days, yellow productive cough, nausea, and chills. acute on chronic respiratory failure with hypoxia and hypercapnia and sepsis, secondary to bilateral hospital acquired pneumonia and acute COPD exacerbation - WBC 17.5, tachycardic and tachypneic, lactic acid and blood cultures x2 pending - CXR with interval mild worsening of bilateral basilar pulmonary opacities which may represent pneumonia or atelectasis. - COVID/flu/RSV negative - patient started on ceftriaxone and levaquin in ED, switch to vancomycin and zosyn in AM - given solumedrol 125mg and duoneb with improvement per pt - continue solumedrol 60mg BID and duonebs q4h while awake - ID and pulm consult - bipap for sleep and NC while awake, titrate as tolerated - monitor CBC and BMP acute hyperkalemia - K 5.5 - lokelma 5mg PO x1 - repeat BMP in AM chest pain, likely secondary to pneumonia - trop at baseline - EKG non-ischemic - monitor on tele cocaine abuse - addiction med consult tobacco use disorder - smoking cessation encouraged chronic HFpEF, no acute exacerbation - continue home meds T2DM - sliding scale insulin - diabetic diet full code VTE prophy: lovenox pt with acute on chronic hypoxic and hypercapneic respiratory failure secondary to sepsis, bilateral pneumonia and COPD exacerbation, requiring admission for at least 2 midnights stay for IV abx, steroids and monitoring. Quality Stroke Does the patient have a stroke diagnosis?: No VTE Prior VTE?: No VTE Risk Level:: Medical - moderate - high VTE Device Contraindication: Treatment Not Indicated VTE Drug Contraindication: N/A - Med Ordered
[2024-11-30] MEDS: QUEtiapine Fumarate 25 MG TABLET PO (23:11)
[2024-11-30] MEDS: ondansetron HCL 4 MG/2 ML VIAL IVPUSH (23:11)
[2024-11-30] MEDS: Morphine Sulfate 4 MG/ML CARTRIDGE IVPUSH (23:11)
[2024-12-01] VITALS (13 sets, daily range): BP systolic 117–170; BP diastolic 57–85; PULSE 67–108; RESP 14–24; TEMP 36.1–36.7; O2SAT 91–100; BMI 33.1
--- NOTE | 2024-12-01 00:42 | PC.NURSE ---
20G U/S IV line infiltrated with levofloxacin running. IV line removed and dressed. Cath intact. Ice pack placed on site. 22G IV placed on the left hand.
[2024-12-01] MEDS: Sodium Zirconium Cyclosilicate 5 GM POWD.PACK PO (00:49)
[2024-12-01] MEDS: vancomycin HCL 1,000 MG, vancomycin HCL 750 MG in 0.9 % Sodium Chloride 500 ML 267.5 MG IV (02:28)
[2024-12-01 02:50] LABS: Glucose, Whole Blood 497 mg/dL (60-115)
--- NOTE | 2024-12-01 02:50 | PC.NURSE ---
POC 497. Hickman text sent to hospitalist. No new orders at this time. Monitoring is ongoing.
[2024-12-01] MEDS: Insulin Lispro 100 UNIT/ML 3 ML VIAL 10 UNIT SUBCUT ×2 (03:02→05:59)
[2024-12-01 03:20] LABS: Lactic Acid 3.7 mmol/L (0.5-2.0)
[2024-12-01 05:03] LABS: Basophils Percent Auto 0.1 % (0-2); Hematocrit 32.7 % (37.0-47.0); Hemoglobin 9.5 g/dl (12.0-16.0); Imm Gran Abs Auto 0.09 X10*3/uL (0.00-0.03); Imm Gran Pct Auto 0.6 % (0.0-0.4); Lymphocytes Absolute Auto 0.4 X10*3/uL (1.2-4.9); Lymphocytes Percent Auto 2.6 % (20-40); MANUAL DIFF FLAG SCAN; Mean Corpuscular HGB Conc 29.1 g/dl (31.0-35.0); Mean Corpuscular Hemoglobin 22.4 pg (27.0-33.0); Mean Corpuscular Volume 77.1 fL (80.0-98.0); Mean Platelet Volume 9.5 fL (9.4-12.3); Monocytes Absolute Auto 0.3 X10*3/uL (0.1-1.2); Monocytes Percent Auto 1.8 % (2-11); Neutrophils Absolute Auto 13.9 x10*3/uL (2.0-8.3); Neutrophils Percent Auto 94.9 % (45-73); Platelet Count 282 X10*3/uL (160-400); Red Blood Count 4.24 X10*6/uL (4.20-5.50); Red Cell Distribution Width 17.3 % (11.0-16.0); SCAN SMEAR FLAG 1; White Blood Count 14.7 X10*3/uL (4.8-10.8)
[2024-12-01 05:04] LABS: Reflex Lactate? Lactic Acid Added
[2024-12-01 05:31] LABS: SLIDE REVIEW VERIFIED
[2024-12-01 05:32] LABS: Anion Gap 15 (12-20); Blood Urea Nitrogen 24 mg/dL (9-16); Calcium 8.4 mg/dL (8.4-10.2); Carbon Dioxide 26 mmol/L (22-29); Chloride 98 mmol/L (96-108); Creatinine Clr Calc Pharmacy 49.1; Estimated Glomerular Filt Rate 51; Glucose Random 503 mg/dL (60-115); Sodium 135 mmol/L (135-145)
--- NOTE | 2024-12-01 05:41 | P.EN_ITS ---
Event Note Date of Service: 12/01/24 Event Note: pt blood sugar 497, does not take insulin at baseline (was just prescribed it yesterday by PCP and has not picked it up yet). she was eating poorly when examined (sandwich, soda, sherbert). - given lispro 10U and recheck in 2 hours repeat blood sugar 2 hours later 503. - give abother 10U lispro and start lantus 20U daily. BMP just done with out any anion gap or metabolic acidosis. also pt lactic acid was 3.7, likely secondary to hypoxia. no IVF given due to c oncern for fluid overload, blood pressures normal. repeat lactic acid pending. Time Spent With Patient Time: Total time managing care of this patient today ____ minutes.
[2024-12-01] MEDS: Insulin Glargine,Hum.rec.anlog 100 UNIT/ML 10 ML VIAL 20 UNIT SUBCUT (06:00)
[2024-12-01 07:37] LABS: Glucose, Whole Blood 241 mg/dL (60-115)
[2024-12-01] MEDS: Insulin Lispro 100 UNIT/ML 3 ML VIAL SUBCUT ×4 (07:50→21:50)
--- NOTE | 2024-12-01 07:53 | PC.NURSE ---
Pt A&O x4 VSS Pt eating bkfst NAD No complaints. Pt OOB to commode.
[2024-12-01] MEDS: Albuterol/Iprat 2.5/0.5MG 3 ML AMPUL.NEB INHALE ×4 (08:19→20:02)
[2024-12-01 08:25] LABS: Estimated Average Glucose 192 mg/dL; Hemoglobin A1C 167.5699 umol/L; Hemoglobin A1c % 8.3 % (<6.0); Total Hemoglobin (HGBA1C) 2508.0378 umol/L
[2024-12-01] MEDS: oxyCODONE HCl Immed Release 5 MG TABLET PO ×2 (08:28→15:51)
[2024-12-01] MEDS: Furosemide 20 MG/2 ML VIAL IVPUSH (08:29)
[2024-12-01] MEDS: 0.9 % Sodium Chloride Flush 3 ML SYRINGE IVFLUSH ×3 (08:55→21:51)
--- NOTE | 2024-12-01 08:56 | PHA.MEDREC ---
Pharmacy Consult ? Medication Reconciliation Pharmacy has completed the medication reconciliation. Spoke to patient to confirm med list. Patient states she was just discharged and the only change is that they Added Lantus 10 units at bedtime and Prednisone taper dose ( 40 mg daily x3 days, 30 mg daily x3 days, 20 mg daily x3 days, 10 mg daily x3 days) Patient states she is only on the first day, last filled 11/27/24. Utilized claims and discharge packet to confirm med list.
[2024-12-01] MEDS: Enoxaparin Sodium 40 MG/0.4 ML SYRINGE SUBCUT (08:57)
[2024-12-01] MEDS: guaiFENesin LA 600 MG TAB.ER.12H PO ×2 (08:58→21:51)
[2024-12-01] MEDS: Piperacillin Sodium/Tazobactam 4.5 GM in 0.9 % Sodium Chloride 100 ML IV ×3 (09:01→21:51)
--- NOTE | 2024-12-01 09:04 | PHA.MEDREC ---
Addendum entered by Hector Uriostegui [facility] 12/01/24 14:26: MED REC CHECKED BY [facility] Original Note: Pharmacy Consult ? Medication Reconciliation Pharmacy has completed the medication reconciliation. Spoke to patient to confirm med list. Patient states she was just discharged and the only change is that they Added Lantus 10 units at bedtime and Prednisone taper dose ( 40 mg daily x3 days, 30 mg daily x3 days, 20 mg daily x3 days, 10 mg daily x3 days) Patient states she is only on the first day, last filled 11/27/24. Utilized claims and discharge packet from 11/27/24 to confirm med list.
[2024-12-01 09:25] LABS: ~Lactic Acid-LAB USE ONLY 2.4 mmol/L (0.5-2.0)
--- NOTE | 2024-12-01 10:39 | MHC.CM.PN ---
Patient lives with her Sister/HCP/Jaja in a 3rd floor walk up apartment and she uses a walker to assist with mobility. Patient has new insulin and is active with [facility]. 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 Patient may benefit from a PT Eval to assist with disposition and CM has initiated and will follow for dc planning. PCP is Dr. Joe Hale and Patient requires BLS transport to home.
[2024-12-01 10:59] LABS: Reflex Lactate? 2 Y
--- NOTE | 2024-12-01 11:39 | PM.CNPUL ---
History of Present Illness History of Present Illness Consult date: 12/01/24 Chief complaint: Hypoxic Narrative: 54-year-old lady with underlying severe asthma/COPD overlap syndrome on 2-3 L of supplemental O2 at baseline, cocaine abuse, HENRY with obesity hypoventilation with suboptimal compliance with nocturnal BiPAP, systolic congestive heart failure, hypertension admitted on 11/30/2024 with complaints of worsening dyspnea initially requiring BiPAP support, now titrated back to nasal cannula. Patient was empirically treated for COPD exacerbation and healthcare associated pneumonia. Review of Systems Constitutional: Constitutional: Denies daytime sleepiness, Denies excessive sweating, Denies fatigue, Denies fever(s), Denies lethargy, Denies malaise, Denies night sweats, Denies snoring and Denies weight loss Eyes: Eyes: Denies blurry vision and Denies itchy eyes ENT: Denies nasal congestion, Denies post nasal drip, Denies sinus pain, Denies sinus pressure and Denies other ( Thrush) Cardiovascular: Cardiovascular: Denies chest pain, Denies pedal edema, Reports dyspnea, Denies orthopnea and Denies paroxysmal nocturnal dyspnea Respiratory: Respiratory: Denies cough, Denies hemoptysis, Denies excessive phlegm production, Reports dyspnea, Denies snoring and Denies wheezing Gastrointestinal: Gastrointestinal: Denies abdominal pain and Denies heartburn Musculoskeletal: Musculoskeletal: Denies myalgias, Denies arthralgias and Denies joint swelling Integumentary/Breasts: Skin/Breast: Denies rash Neurologic: Denies memory loss and Denies seizure-like activity Psychiatric: Psychiatric: Denies abnormal sleep pattern, Denies anxiety and Denies memory loss Endocrine: Endocrine: Denies excessive sweating, Denies fatigue and Denies heat intolerance Hematologic/Lymphatic: Hematologic/Lymphatic: Denies easy bruising Allergic/Immunologic: Allergic/Immunologic: Denies itchy eyes, Denies seasonal rhinorrhea and Denies wheezing PMFSH Past Medical History Medical History (Updated 12/01/24 @ 11:42 by Kolby Kessler MD) COPD (chronic obstructive pulmonary disease) Cocaine use disorder Cocaine abuse GERD (gastroesophageal reflux disease) Constipation Non-insulin dependent type 2 diabetes mellitus HENRY (obstructive sleep apnea) Acute exacerbation of chronic obstructive airways disease Asthma with exacerbation Obesity hypoventilation syndrome Chronic lung disease Hypoxic respiratory failure Nocturnal hypoxemia Diabetes mellitus COPD exacerbation Crack cocaine use Hyperkalemia Metabolic acidosis Leukocytosis Chest discomfort Chronic renal failure, stage 2 (mild) SOB (shortness of breath) Asthma Smoker Rotator cuff tendonitis GERD (gastroesophageal reflux disease) Chronic idiopathic constipation Bustos's esophagus Depression High triglycerides Gastroparesis Carpal tunnel syndrome of right wrist Nausea & vomiting Hernia Acute and chronic respiratory failure, unspecified whether with hypoxia or hypercapnia HTN (hypertension) Obesity (BMI 30-39.9) Knee pain, bilateral Family History Family History Father Heart disease HENRY (obstructive sleep apnea) Family history of breast cancer Mother Asthma Emphysema, unspecified Bronchitis Smoker Alcoholism Bone marrow disease Maternal Grandmother Diabetes Surgical History Surgical History History of cholecystectomy (~1988) History of carpal tunnel release Hx of tubal ligation History of pubovaginal sling (~2015) History of umbilical hernia repair (~2001) Hx of section History of open reduction and internal fixation (ORIF) procedure History of esophagogastroduodenoscopy (EGD) Social History Social History Household Members: Family Household Members Other:: sister Housing: House Are you a primary home care administrator to a significant other at home: No Do you presently have visiting nurse or other home services: Yes ([facility]) Unable to assess alcohol history related to: Unknown Alcohol intake: unknown Comment: Sleeping Patient Tobacco Use Status: Current everyday Tobacco user Tobacco use type: Cigarette Cigarette Packs Per Day: 0.5 Cigarettes Per Day: 10.0 Years Smoked: 40? Smoked in Last 30 Days: Yes e-Cigarette/Vaping Use: Never Used Second Hand Smoke Exposure: Yes Use of substances other than those prescribed or required for medical reasons: No Substance Use Type: Crack/Cocaine Advance Directives: Yes Advance Directives on File: Yes Advance Directives Date on File: 12/19/23 Do you have a plan to hurt others: No Plan Nutrition Risks: No Nutritional Risk Patient : No service: No Current occupational status: disabled 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 Meds Allergies Allergy/AdvReac Type Severity Reaction Status Date / Time doxycycline Allergy Severe Swelling Verified 11/30/24 20:39 varenicline [From CHANTIX] Allergy Severe ANAPHYLAXIS Verified 11/30/24 20:39 azithromycin Allergy Intermediate Rash Verified 11/30/24 20:39 barium sulfate Allergy Intermediate angioedema Verified 11/30/24 20:39 cetirizine Allergy Mild Rash Verified 11/30/24 20:39 famotidine Allergy Mild Rash Verified 11/30/24 20:39 linaclotide [Linzess] Allergy Mild Rash Verified 11/30/24 20:39 Active Medications: Current Medications Acetaminophen (Acetaminophen 325 Mg Tablet) 975 mg PO Q6H PRN PRN Reason: Pain, Mild 1-3,fever,headache Albuterol/Ipratropium (Albuterol/Iprat 2.5/0.5mg 3 Ml Ampul.Neb) 3 ml INHALE RQ4H WHILE AWAKE [facility] Last Admin: 12/01/24 11:31 Dose: 3 ml Calcium Carbonate (Calcium Carbonate 750 Mg Tab.Chew) 750 mg PO Q4H PRN PRN Reason: Heartburn Dextrose (Dextrose 50 % 25 Gm/50 Ml Syringe) 25 gm IVPUSH Q15M PRN; Protocol PRN Reason: per Hypoglycemia Standing Ord. Enoxaparin Sodium (Enoxaparin Sodium 40 Mg/0.4 Ml Syringe) 40 mg SUBCUT Q24H [facility] Last Admin: 12/01/24 08:57 Dose: 40 mg Glucose (Glucose Gel 15 Gm Gel..Gram.) 15 gm PO Q15M PRN; Protocol PRN Reason: per Hypoglycemia Standing Ord. Guaifenesin (Guaifenesin La 600 Mg Tab.Er.12h) 600 mg PO BID [facility] Last Admin: 12/01/24 08:58 Dose: 600 mg Piperacillin Sod/Tazobactam (Sod 4.5 gm/ Sodium Chloride) 100 mls @ 200 mls/hr IV Q6H [facility] Last Infusion: 12/01/24 09:45 Dose: Infused Vancomycin HCl 750 mg/ Sodium (Chloride) 265 mls @ 265 mls/hr IV Q12H [facility] Insulin Glargine (Insulin Glargine,Hum.Rec.Anlog 100 Unit/Ml 10 Ml Vial) 20 unit SUBCUT DAILY [facility] Last Admin: 12/01/24 06:00 Dose: 20 unit Insulin Human Lispro (Insulin Lispro 100 Unit/Ml 3 Ml Vial) 0 unit SUBCUT QIDACHS [facility]; Protocol Last Admin: 12/01/24 07:50 Dose: 4 unit Magnesium Hydroxide (Milk Of Magnesia 30 Ml Oral.Susp) 30 ml PO DAILY PRN PRN Reason: Constipation Melatonin (Melatonin 3 Mg Tablet) 6 mg PO BEDTIME PRN PRN Reason: Insomnia Methylprednisolone Sodium Succinate (Methylprednisolone Sod Succ 125 Mg Vial) 60 mg IVPUSH BID [facility] Last Admin: 12/01/24 09:00 Dose: 60 mg Ondansetron HCl (Ondansetron Hcl 4 Mg/2 Ml Vial) 4 mg IVPUSH Q8H PRN PRN Reason: Nausea and Vomiting Oxycodone HCl (Oxycodone Hcl Immed Release 5 Mg Tablet) 5 mg PO Q6H PRN PRN Reason: Pain, Moderate(Pain Scale 4-6) Last Admin: 12/01/24 08:28 Dose: 5 mg Pharmacy Consult (Consult Rx Vancomycin Dosing) 1 each MISCELLANE DAILY PRN PRN Reason: Consult order Sodium Chloride (0.9 % Sodium Chloride Flush 3 Ml Syringe) [facility] Last Admin: 12/01/24 08:55 Dose: 3 ml Home Medications ?Medication ?Instructions ?Recorded ?Confirmed ?Last Taken ?Type tizanidine 4 mg tablet 4 mg PO Q12H muscle spasm 10/21/24 12/01/24 11/29/24 History quetiapine 25 mg tablet (Seroquel) 25 mg PO BEDTIME hallucinations 11/12/24 12/01/24 11/29/24 History quetiapine 25 mg tablet (Seroquel) 25 mg PO DAILY PRN racing thoughts 11/12/24 12/01/24 11/17/24 History sertraline 100 mg tablet 100 mg PO DAILY 11/12/24 12/01/24 11/29/24 History sertraline 25 mg tablet 25 mg PO DAILY 11/12/24 12/01/24 11/29/24 History tiotropium 2.5 mcg-olodaterol 2.5 2 puff inhalation DAILY 11/26/24 12/01/24 11/29/24 History mcg/actuation mist for inhalation (Stiolto Respimat) insulin glargine 100 unit/mL (3 10 unit subcut BEDTIME 12/01/24 12/01/24 11/29/24 History mL) subcutaneous pen (Lantus Solostar U-100 Insulin) Physical Exam Vital Signs: Vital Signs: Last Vital Signs Temp 97.3 F 12/01/24 07:22 Pulse 104 H 12/01/24 11:34 Resp 17 12/01/24 11:34 BP 137/84 12/01/24 08:29 Pulse Ox 96 12/01/24 08:14 O2 Del Method Nasal Cannula 12/01/24 08:14 O2 Flow Rate 3 12/01/24 08:14 BMI result Body Mass Index 29.3 Const: General: no acute distress and alert Nutritional Appearance: obese Orientation/consciousness: Other orientation findings ( oriented) HEENT: Head: Yes atraumatic Eyes: General: appearance normal, both eyes and all related structures Sclerae: sclerae normal EOM: EOMs intact bilaterally Neck: Neck: Yes supple Lymphatic: no lymphadenopathy noted Resp: Effort & Inspection: normal respiratory effort and no use of accessory muscles Auscultation: clear to auscultation bilaterally Cardio: Rate: tachycardic Rhythm: regular rhythm Heart sounds: no gallops, no murmurs and no rubs Skin: General skin exam: other ( warm) Extrem: General: No clubbing, No cyanosis and No edema Results Laboratory Findings 12/01/24 04:38 12/01/24 04:38 ABG, PT/INR, D-dimer: PT/INR, D-dimer PT 9.9 SEC (10.9-12.4) L D 11/30/24 20:44 INR 0.9 (0.9-1.1) 11/30/24 20:44 Abnormal lab findings: Abnormal Labs 11/30/24 11/30/24 12/01/24 20:44 20:50 02:33 WBC 17.5 H Hgb 11.3 L Hct MCV 74.6 L MCH 22.4 L MCHC 30.1 L RDW 17.8 H Immature Gran % (Auto) 0.5 H Neut % (Auto) Lymph % (Auto) [place] % (Auto) Lymph # (Auto) [place] # (Auto) 1.3 H Abs Immat Gran (auto) 0.09 H Absolute Neuts (auto) 12.5 H PT 9.9 L D VBG pH 7.47 H VBG HCO3 30 H Potassium 5.5 H BUN 22 H POC Glucose Random Glucose 137 H Hemoglobin A1c % Lactic Acid 3.7 H* Lactic Acid F/U @ 2Hr AST 43 H Troponin I High Sens 26.7 H 12/01/24 12/01/24 12/01/24 02:46 04:38 07:20 WBC 14.7 H Hgb 9.5 L Hct 32.7 L MCV 77.1 L MCH 22.4 L MCHC 29.1 L RDW 17.3 H Immature Gran % (Auto) 0.6 H Neut % (Auto) 94.9 H Lymph % (Auto) 2.6 L [place] % (Auto) 1.8 L Lymph # (Auto) 0.4 L [place] # (Auto) Abs Immat Gran (auto) 0.09 H Absolute Neuts (auto) 13.9 H PT VBG pH VBG HCO3 Potassium BUN 24 H POC Glucose 497 H* 241 H Random Glucose 503 H* Hemoglobin A1c % 8.3 H Lactic Acid Lactic Acid F/U @ 2Hr AST Troponin I High Sens 12/01/24 08:54 WBC Hgb Hct MCV MCH MCHC RDW Immature Gran % (Auto) Neut % (Auto) Lymph % (Auto) [place] % (Auto) Lymph # (Auto) [place] # (Auto) Abs Immat Gran (auto) Absolute Neuts (auto) PT VBG pH VBG HCO3 Potassium BUN POC Glucose Random Glucose Hemoglobin A1c % Lactic Acid Lactic Acid F/U @ 2Hr 2.4 H* AST Troponin I High Sens Assessment and Plan (1) Cocaine abuse: Status: Chronic (2) Supplemental oxygen dependent: Status: Acute (3) COPD (chronic obstructive pulmonary disease): Qualifiers: COPD type: COPD with acute exacerbation Qualified Code(s): J44.1 - Chronic obstructive pulmonary disease with (acute) exacerbation Status: Acute Plan Impression: 54-year-old lady with severe asthma/COPD overlap syndrome on 2-3 L of supplemental oxygen, multiple exacerbation secondary to cocaine abuse, HENRY with obesity hyperventilation suboptimally compliant with BiPAP therapy admitted with dyspnea initially requiring BiPAP support, now titrated to home level of supplemental oxygen at 3 L via nasal cannula and at baseline respiratory status. No evidence of pneumonia, likely acute asthma exacerbation secondary to cocaine use. Recommendations: Rapid titration off systemic glucocorticoids. Discontinue empiric antibiotics. Continue home regimen of inhaled bronchodilators. Procedures Date of Service Date of Service: 12/01/24
[2024-12-01 11:40] LABS: ~Lactic Acid-LAB USE ONLY 2.2 mmol/L (0.5-2.0)
[2024-12-01 12:32] LABS: Glucose, Whole Blood 206 mg/dL (60-115)
--- NOTE | 2024-12-01 13:12 | PC.NURSE ---
Repeat lactic continue to trend down, no further lactics to be drawn per Dr Boyd, order placed and lab aware
[2024-12-01 13:25] LABS: Cancel Lactic Acid Canceled
--- NOTE | 2024-12-01 14:54 | HO.PM.IMPN ---
Subjective Subjective Date of Service: 12/02/24 Interval History: Late Entry: patient doing better still on nebs and O2 supplement Review of Systems Review of Systems: Yes all other systems are reviewed and are negative Physical Exam Vital Signs: Vital Signs: Last Vital Signs Temp 97.4 F 12/02/24 07:13 Pulse 109 H 12/02/24 07:40 Resp 20 12/02/24 07:40 BP 139/69 12/02/24 07:13 Pulse Ox 93 12/02/24 07:13 O2 Del Method Nasal Cannula 12/02/24 07:13 O2 Flow Rate 2 12/02/24 07:13 BMI result Body Mass Index 33.1 Const: Other: Constitutional : interactive, not in distress Cardiovascular : no JVP, no lower extremity edema Respiratory : bilateral chest movement, not in resp distress , bilateral wheezing, on O2 supplement Gastrointestinal: soft, lax, Non tender Skin : Warm, Dry Neurological : Alert & oriented , No focal deficit Objective Data Active Medications Acetaminophen (Acetaminophen 325 Mg Tablet) 975 mg PO Q6H PRN PRN Reason: Pain, Mild 1-3,fever,headache Last Admin: 12/01/24 15:51 Dose: 975 mg Documented By: LEAH Albuterol/Ipratropium (Albuterol/Iprat 2.5/0.5mg 3 Ml Ampul.Neb) 3 ml INHALE RQ4H WHILE AWAKE [facility] Last Admin: 12/02/24 07:38 Dose: 3 ml Documented By: REHANA Albuterol/Ipratropium (Albuterol/Iprat 2.5/0.5mg 3 Ml Ampul.Neb) 3 ml INHALE RTID [facility] Last Admin: 12/02/24 07:39 Dose: Not Given Documented By: REHANA Non-Admin Reason: Duplicate Order Aspirin (Aspirin Enteric Coated 81 Mg Tablet.) 81 mg PO DAILY [facility] Atorvastatin Calcium (Atorvastatin Calcium 40 Mg Tablet) 40 mg PO BEDTIME [facility] Last Admin: 12/01/24 21:51 Dose: 40 mg Documented By: ARUNA Calcium Carbonate (Calcium Carbonate 750 Mg Tab.Chew) 750 mg PO Q4H PRN PRN Reason: Heartburn Dextrose (Dextrose 50 % 25 Gm/50 Ml Syringe) 25 gm IVPUSH Q15M PRN; Protocol PRN Reason: per Hypoglycemia Standing Ord. Enoxaparin Sodium (Enoxaparin Sodium 40 Mg/0.4 Ml Syringe) 40 mg SUBCUT Q24H [facility] Last Admin: 12/01/24 08:57 Dose: 40 mg Documented By: DUNIA Furosemide (Furosemide 20 Mg Tablet) 20 mg PO DAILY [facility]; Protocol Gabapentin (Gabapentin 400 Mg Capsule) 800 mg PO QID [facility] Last Admin: 12/01/24 21:51 Dose: 800 mg Documented By: ARUNA Glipizide (Glipizide 5 Mg Tablet) 5 mg PO DAILY [facility] Glucose (Glucose Gel 15 Gm Gel..Gram.) 15 gm PO Q15M PRN; Protocol PRN Reason: per Hypoglycemia Standing Ord. Glucose (Glucose Gel 15 Gm Gel..Gram.) 10 gm PO Q15M PRN PRN Reason: hypoglycemia Guaifenesin (Guaifenesin La 600 Mg Tab.Er.12h) 600 mg PO BID [facility] Last Admin: 12/01/24 21:51 Dose: 600 mg Documented By: ARUNA Guaifenesin/Codeine Phosphate (Guaifen/Codeine Sf 200/20/10ml 10 Ml Liquid) 10 ml PO Q4H PRN PRN Reason: cough Piperacillin Sod/Tazobactam (Sod 4.5 gm/ Sodium Chloride) 100 mls @ 200 mls/hr IV Q6H [facility] Last Infusion: 12/02/24 04:48 Dose: Infused Documented By: ARUNA Vancomycin HCl 750 mg/ Sodium (Chloride) 265 mls @ 265 mls/hr IV Q12H [facility] Last Infusion: 12/02/24 06:25 Dose: Infused Documented By: ARUNA Ibuprofen (Ibuprofen 800 Mg Tablet) 800 mg PO BID PRN PRN Reason: Headache Insulin Glargine (Insulin Glargine,Hum.Rec.Anlog 100 Unit/Ml 10 Ml Vial) 20 unit SUBCUT DAILY [facility] Last Admin: 12/01/24 06:00 Dose: 20 unit Documented By: RAFFI Insulin Glargine (Insulin Glargine,Hum.Rec.Anlog 100 Unit/Ml 10 Ml Vial) 10 unit SUBCUT BEDTIME [facility] Last Admin: 12/01/24 21:50 Dose: 10 unit Documented By: ARUNA Insulin Human Lispro (Insulin Lispro 100 Unit/Ml 3 Ml Vial) 0 unit SUBCUT QIDACHS [facility]; Protocol Last Admin: 12/01/24 21:50 Dose: 2 unit Documented By: ARUNA Losartan Potassium (Losartan Potassium 50 Mg Tablet) 50 mg PO DAILY [facility]; Protocol Magnesium Hydroxide (Milk Of Magnesia 30 Ml Oral.Susp) 30 ml PO DAILY PRN PRN Reason: Constipation Melatonin (Melatonin 3 Mg Tablet) 6 mg PO BEDTIME PRN PRN Reason: Insomnia Methylprednisolone Sodium Succinate (Methylprednisolone Sod Succ 125 Mg Vial) 60 mg IVPUSH BID [facility] Last Admin: 12/01/24 21:51 Dose: 60 mg Documented By: ARUNA Nicotine (Nicotine 21 Mg Patch.Td24) 21 mg TRANSDERMA Q24H [facility] Last Admin: 12/01/24 16:53 Dose: 21 mg Documented By: LEAH Ondansetron HCl (Ondansetron Hcl 4 Mg/2 Ml Vial) 4 mg IVPUSH Q8H PRN PRN Reason: Nausea and Vomiting Oxycodone HCl (Oxycodone Hcl Immed Release 5 Mg Tablet) 5 mg PO Q6H PRN PRN Reason: Pain, Moderate(Pain Scale 4-6) Last Admin: 12/01/24 15:51 Dose: 5 mg Documented By: LEAH Pharmacy Consult (Consult Rx Vancomycin Dosing) 1 each MISCELLANE DAILY PRN PRN Reason: Consult order Quetiapine Fumarate (Quetiapine Fumarate 25 Mg Tablet) 25 mg PO BEDTIME [facility] Last Admin: 12/01/24 21:51 Dose: 25 mg Documented By: ARUNA Quetiapine Fumarate (Quetiapine Fumarate 25 Mg Tablet) 25 mg PO DAILY PRN PRN Reason: racing thoughts Last Admin: 12/01/24 18:09 Dose: 25 mg Documented By: LEAH Sertraline HCl (Sertraline Hcl 25 Mg Tablet) 25 mg PO DAILY [facility] Sertraline HCl (Sertraline Hcl 100 Mg Tablet) 100 mg PO DAILY [facility] Sodium Chloride (0.9 % Sodium Chloride Flush 3 Ml Syringe) 3 ml IVFLUSH QSHIFT [facility] Last Admin: 12/01/24 21:51 Dose: 3 ml Documented By: ARUNA Theophylline (Theophylline Anhydrous Er 400 Mg Tab.Er.24h) 400 mg PO BID [facility] Last Admin: 12/01/24 21:50 Dose: 400 mg Documented By: ARUNA Tizanidine HCl (Tizanidine Hcl 4 Mg Tablet) 4 mg PO BID [facility] Last Admin: 12/01/24 21:51 Dose: 4 mg Documented By: ARUNA Labs 12/02/24 06:55 12/02/24 06:55 Labs: Laboratory Results - last 24 hr 12/01/24 12/01/24 12/01/24 04:38 08:54 11:18 MCV MCH MCHC RDW Plt Count MPV Immature Gran % (Auto) Neut % (Auto) Lymph % (Auto) [place] % (Auto) Eos % (Auto) Baso % (Auto) Lymph # (Auto) [place] # (Auto) Eos # (Auto) Baso # (Auto) Abs Immat Gran (auto) Absolute Neuts (auto) Absolute Nucleated RBC Nucleated RBC % (auto) Anion Gap Estim Creat Clear Calc Estimated GFR POC Glucose Random Glucose Estimat Average Glucose 192 Hemoglobin A1c % 8.3 H Lactic Acid F/U @ 2Hr 2.4 H* Lactic Acid F/U @ 4Hr 2.2 H* Calcium Urine Opiates Screen Ur Buprenorphine Scrn Ur Oxycodone Screen Urine Methadone Screen Urine Fentanyl Screen Ur Barbiturates Screen Ur Phencyclidine Scrn Ur Amphetamines Screen U Benzodiazepines Scrn Urine Cocaine Screen U Marijuana (THC) Screen 12/01/24 12/01/24 12/01/24 12:29 15:11 16:05 MCV MCH MCHC RDW Plt Count MPV Immature Gran % (Auto) Neut % (Auto) Lymph % (Auto) [place] % (Auto) Eos % (Auto) Baso % (Auto) Lymph # (Auto) [place] # (Auto) Eos # (Auto) Baso # (Auto) Abs Immat Gran (auto) Absolute Neuts (auto) Absolute Nucleated RBC Nucleated RBC % (auto) Anion Gap Estim Creat Clear Calc Estimated GFR POC Glucose 206 H 289 H Random Glucose Estimat Average Glucose Hemoglobin A1c % Lactic Acid F/U @ 2Hr Lactic Acid F/U @ 4Hr Calcium Urine Opiates Screen POSITIVE H Ur Buprenorphine Scrn Not Detected Ur Oxycodone Screen Positive H Urine Methadone Screen Not Detected Urine Fentanyl Screen Not Detected Ur Barbiturates Screen Not Detected Ur Phencyclidine Scrn Not Detected Ur Amphetamines Screen Not Detected U Benzodiazepines Scrn Not Detected Urine Cocaine Screen POSITIVE H U Marijuana (THC) Screen Not Detected 12/01/24 12/02/24 12/02/24 21:06 06:55 07:16 MCV 77.1 L MCH 22.4 L MCHC 29.1 L RDW 17.4 H Plt Count 275 MPV 9.1 L Immature Gran % (Auto) 0.7 H Neut % (Auto) 87.7 H Lymph % (Auto) 7.8 L [place] % (Auto) 3.7 Eos % (Auto) 0.0 Baso % (Auto) 0.1 Lymph # (Auto) 1.1 L [place] # (Auto) 0.5 Eos # (Auto) 0.0 Baso # (Auto) 0.0 Abs Immat Gran (auto) 0.10 H Absolute Neuts (auto) 12.5 H Absolute Nucleated RBC 0.000 Nucleated RBC % (auto) 0.0 Anion Gap 15 Estim Creat Clear Calc 71.1 Estimated GFR > 60 POC Glucose 196 H 318 H Random Glucose 314 H Estimat Average Glucose Hemoglobin A1c % Lactic Acid F/U @ 2Hr Lactic Acid F/U @ 4Hr Calcium 8.5 Urine Opiates Screen Ur Buprenorphine Scrn Ur Oxycodone Screen Urine Methadone Screen Urine Fentanyl Screen Ur Barbiturates Screen Ur Phencyclidine Scrn Ur Amphetamines Screen U Benzodiazepines Scrn Urine Cocaine Screen U Marijuana (THC) Screen Microbiology Microbiology Results: Microbiology 12/01/24 02:33 Blood Culture - Preliminary Blood - Venous No growth after 24 hours. 12/01/24 02:33 Blood Culture - Preliminary Blood - Venous No growth after 24 hours. Assessment and Plan (1) Acute lactic acidosis: Status: Acute (2) Acute on chronic respiratory failure with hypoxia and hypercapnia: Status: Acute (3) Acute exacerbation of chronic obstructive pulmonary disease: Status: Acute Plan pt is a 54 yo f with a pmhx significant for COPD and chronic respiratory failure with hypoxia and hypercapnia on BiPAP at night, HENRY/OHS, HFpEF, diabetes mellitus, cocaine use disorder, and tobacco use disorder, who presented to the ED last night due to SOB x2 days, yellow productive cough, nausea, and chills. acute on chronic respiratory failure with hypoxia and hypercapnia and sepsis, secondary to bilateral hospital acquired pneumonia and acute COPD exacerbation CXR with interval mild worsening of bilateral basilar pulmonary opacities which may represent pneumonia or atelectasis. started on ceftriaxone and levaquin in ED, switched to vancomycin and zosyn continue solumedrol 60mg BID duonebs q4h while awake ID and pulm consult bipap for sleep and NC while awake, titrate as tolerated monitor CBC and BMP Acute lactic acidosis likely from nebulizer not due to sepsis acute hyperkalemia resolved repeat BMP in AM chest pain, likely secondary to pneumonia trop at baseline EKG non-ischemic monitor on tele cocaine abuse addiction med consult tobacco use disorder smoking cessation encouraged chronic HFpEF, no acute exacerbation continue home meds T2DM sliding scale insulin diabetic diet full code VTE prophy: lovenox pt with acute on chronic hypoxic and hypercapneic respiratory failure secondary to sepsis, bilateral pneumonia and COPD exacerbation, requiring admission fovernight stay for IV abx, steroids and monitoring. Quality Stroke Does the patient have a stroke diagnosis?: No VTE Prior VTE?: No VTE Risk Level:: Medical - moderate - high VTE Device Contraindication: Treatment Not Indicated VTE Drug Contraindication: N/A - Med Ordered
[2024-12-01 15:25] LABS: Glucose, Whole Blood 289 mg/dL (60-115)
[2024-12-01] MEDS: Acetaminophen 325 MG TABLET 975 MG PO (15:51)
--- NOTE | 2024-12-01 15:58 | PM.EVENT ---
Event Note Date of Service: 12/01/24 Event Note: Addiction consult placed for patient Patient seen by tea and spice supervisor, please see note from 12/01/24. She expressed desire to restart topirimate for cocaine use. T/W called and spoke to first mate Christopher Hopkins regarding medication management at home and overall challenges of attending follow up appts for JOE. T/W inquired if medication could be continued by PCP once started here. Patient has an appt scheduled in the next 10 days with PCP. Will discuss then. Patient to be seen in f/u by t/w tomorrow 12/02/24 and topirimate restarted at 25mg BID, with plan to increase to 50mg BID after one week. Time Spent With Patient Time: Total time managing care of this patient today ____ minutes.
[2024-12-01] MEDS: Gabapentin 400 MG CAPSULE 800 MG PO ×2 (16:53→21:51)
[2024-12-01] MEDS: Nicotine 21 MG PATCH.TD24 TRANSDERMA (16:53)
[2024-12-01] MEDS: vancomycin HCL 750 MG in 0.9 % Sodium Chloride 250 ML 265 MG IV (16:56)
[2024-12-01 16:59] LABS: Amphetamine Screen Urine Not Detected (Not Detect); Barbiturates, Urine Not Detected (Not Detect); Benzodiazepines Screen Urine Not Detected (Not Detect); Buprenorphine Scr Not Detected (Not Detect); Cannabinoid Screen Urine Not Detected (Not Detect); Cocaine Screen Urine POSITIVE (Not Detect); Fentanyl, urine Not Detected (Not Detect); Methadone Screen, Urine Not Detected (Not Detect); Opiate Screen Urine POSITIVE (Not Detect); Oxycodone Screen Urine Positive (Not Detect); Phencyclidine Screen Urine Not Detected (Not Detect)
[2024-12-01] MEDS: QUEtiapine Fumarate 25 MG TABLET PO ×2 (18:09→21:51)
[2024-12-01 21:21] LABS: Glucose, Whole Blood 196 mg/dL (60-115)
[2024-12-01] MEDS: Insulin Glargine,Hum.rec.anlog 100 UNIT/ML 10 ML VIAL 10 UNIT SUBCUT (21:50)
[2024-12-01] MEDS: Theophylline Anhydrous ER 400 MG TAB.ER.24H PO (21:50)
[2024-12-01] MEDS: Atorvastatin Calcium 40 MG TABLET PO (21:51)
[2024-12-01] MEDS: TiZANidine HCL 4 MG TABLET PO (21:51)
[2024-12-02] VITALS: BP 142/89; PULSE 99; RESP 20; TEMP 36.6; O2SAT 99
[2024-12-02 03:23] VITALS: BP 142/71; PULSE 85; RESP 22; TEMP 36.2; O2SAT 95
[2024-12-02] MEDS: Piperacillin Sodium/Tazobactam 4.5 GM in 0.9 % Sodium Chloride 100 ML IV (03:42)
[2024-12-02] MEDS: vancomycin HCL 750 MG in 0.9 % Sodium Chloride 250 ML 265 MG IV (04:41)
[2024-12-02 07:07] LABS: MANUAL DIFF FLAG NO
[2024-12-02 07:13] VITALS: BP 139/69; PULSE 105; RESP 20; TEMP 36.3; O2SAT 93
[2024-12-02 07:17] LABS: Basophils Percent Auto 0.1 % (0-2); Hemoglobin 9.3 g/dl (12.0-16.0); Imm Gran Pct Auto 0.7 % (0.0-0.4); Lymphocytes Absolute Auto 1.1 X10*3/uL (1.2-4.9); Lymphocytes Percent Auto 7.8 % (20-40); Mean Corpuscular HGB Conc 29.1 g/dl (31.0-35.0); Mean Corpuscular Hemoglobin 22.4 pg (27.0-33.0); Mean Corpuscular Volume 77.1 fL (80.0-98.0); Mean Platelet Volume 9.1 fL (9.4-12.3); Monocytes Absolute Auto 0.5 X10*3/uL (0.1-1.2); Monocytes Percent Auto 3.7 % (2-11); Neutrophils Absolute Auto 12.5 x10*3/uL (2.0-8.3); Neutrophils Percent Auto 87.7 % (45-73); Platelet Count 275 X10*3/uL (160-400); Red Blood Count 4.15 X10*6/uL (4.20-5.50); Red Cell Distribution Width 17.4 % (11.0-16.0); White Blood Count 14.3 X10*3/uL (4.8-10.8)
[2024-12-02 07:32] LABS: Anion Gap 15 (12-20); Blood Urea Nitrogen 29 mg/dL (9-16); Calcium 8.5 mg/dL (8.4-10.2); Carbon Dioxide 30 mmol/L (22-29); Chloride 101 mmol/L (96-108); Creatinine Clr Calc Pharmacy 71.1; Estimated Glomerular Filt Rate > 60; Glucose Random 314 mg/dL (60-115); Potassium 4.7 mmol/L (3.3-5.1); Sodium 141 mmol/L (135-145)
[2024-12-02 07:37] LABS: Glucose, Whole Blood 318 mg/dL (60-115)
[2024-12-02] MEDS: Albuterol/Iprat 2.5/0.5MG 3 ML AMPUL.NEB INHALE ×2 (07:38→11:30)
[2024-12-02 07:40] VITALS: PULSE 109; RESP 20; O2SAT 100
[2024-12-02] MEDS: Insulin Lispro 100 UNIT/ML 3 ML VIAL SUBCUT ×2 (08:07→12:07)
[2024-12-02] MEDS: Aspirin Enteric Coated 81 MG TABLET.DR PO (08:08)
[2024-12-02] MEDS: guaiFENesin LA 600 MG TAB.ER.12H PO (08:08)
[2024-12-02] MEDS: Insulin Glargine,Hum.rec.anlog 100 UNIT/ML 10 ML VIAL 20 UNIT SUBCUT (08:08)
[2024-12-02] MEDS: Sertraline HCL 100 MG TABLET PO (08:08)
[2024-12-02] MEDS: glipiZIDE 5 MG TABLET PO (08:08)
[2024-12-02] MEDS: TiZANidine HCL 4 MG TABLET PO (08:09)
[2024-12-02] MEDS: Gabapentin 400 MG CAPSULE 800 MG PO ×2 (08:09→12:07)
[2024-12-02] MEDS: Losartan Potassium 50 MG TABLET PO (08:09)
[2024-12-02] MEDS: Furosemide 20 MG TABLET PO (08:09)
[2024-12-02] MEDS: Theophylline Anhydrous ER 400 MG TAB.ER.24H PO (08:09)
[2024-12-02] MEDS: Enoxaparin Sodium 40 MG/0.4 ML SYRINGE SUBCUT (08:10)
[2024-12-02] MEDS: Sertraline HCL 25 MG TABLET PO (08:10)
[2024-12-02] MEDS: 0.9 % Sodium Chloride Flush 3 ML SYRINGE IVFLUSH (08:14)
[2024-12-02 11:13] LABS: Glucose, Whole Blood 168 mg/dL (60-115)
[2024-12-02 11:14] VITALS: BP 118/56; PULSE 100; RESP 18; TEMP 36.3; O2SAT 100
[2024-12-02 11:30] VITALS: PULSE 110; RESP 18; O2SAT 98
--- NOTE | 2024-12-02 11:50 | HO.ADDICT_ITS ---
History of Present Illness Date of Service: 12/02/2024 Chief Complaint: Hypoxic Reason for Consult: cocaine use Sources of Information: patient interviewed and chart reviewed HPI Narrative: Patient seen in follow up --seen by relationship assoc on 12/01 and expressed desire to restart topiramate. Please see assessment counselor for additional details. She is awake, alert, bright affect and engaged in interview. She states she has been working to decrease her use. We discussed triggers for use, which for her is anxiety. Unfortunately, her sister who lives with her, also uses She stated that she does not want to continue coming to the hospital Medical Evaluation Reviewed: Yes Review of Systems Constitutional: Reports as per HPI and Reports no additional constitutional complaints Diagnostics Vital Signs (24Hr): Vital Signs - 24 hr 12/01/24 12:58 12/01/24 15:02 12/01/24 15:20 Temperature 97 F 97.5 F Pulse Rate 108 H 101 H 98 Respiratory Rate 24 H 18 18 Blood Pressure 170/80 H 126/57 L Pulse Oximetry 100 95 Oxygen Delivery Method Nasal Cannula Nasal Cannula Oxygen Flow Rate 2 2 12/01/24 20:00 12/01/24 20:05 12/01/24 23:51 Temperature 96.9 F Pulse Rate 67 97 Respiratory Rate 16 18 14 Blood Pressure 139/75 Pulse Oximetry 98 Oxygen Delivery Method Room Air Oxygen Flow Rate 12/02/24 00:00 12/02/24 03:23 12/02/24 07:13 Temperature 97.8 F 97.2 F 97.4 F Pulse Rate 99 85 105 H Respiratory Rate 20 22 H 20 Blood Pressure 142/89 H 142/71 H 139/69 Pulse Oximetry 99 95 93 Oxygen Delivery Method Nasal Cannula Nasal Cannula Nasal Cannula Oxygen Flow Rate 2 2 2 12/02/24 07:40 12/02/24 11:14 12/02/24 11:30 Temperature 97.3 F Pulse Rate 109 H 100 110 H Respiratory Rate 20 18 18 Blood Pressure 118/56 L Pulse Oximetry 100 Oxygen Delivery Method Nasal Cannula Oxygen Flow Rate 2 BMI result Body Mass Index 33.1 Labs 12/02/24 06:55 12/02/24 06:55 Labs: Laboratory Results - last 48 hr 11/30/24 11/30/24 11/30/24 20:44 20:45 20:50 WBC 17.5 H RBC 5.04 Hgb 11.3 L Hct 37.6 MCV 74.6 L MCH 22.4 L MCHC 30.1 L RDW 17.8 H Plt Count 299 MPV 9.7 Immature Gran % (Auto) 0.5 H Neut % (Auto) 71.6 Lymph % (Auto) 20.1 [place] % (Auto) 7.1 Eos % (Auto) 0.6 Baso % (Auto) 0.1 Lymph # (Auto) 3.5 [place] # (Auto) 1.3 H Eos # (Auto) 0.1 Baso # (Auto) 0.0 Abs Immat Gran (auto) 0.09 H Absolute Neuts (auto) 12.5 H Absolute Nucleated RBC 0.000 Nucleated RBC % (auto) 0.0 Smear Tech's Comments PT 9.9 L D INR 0.9 VBG pH 7.47 H VBG pCO2 41 VBG pO2 65 VBG HCO3 30 H VBG O2 Saturation 90.0 VBG Base Excess 6.8 Sodium 137 Potassium 5.5 H Chloride 99 Carbon Dioxide 27 Anion Gap 17 BUN 22 H Creatinine 1.11 Estim Creat Clear Calc 48.6 Estimated GFR 51 POC Glucose Random Glucose 137 H Estimat Average Glucose Hemoglobin A1c % Lactic Acid Lactic Acid F/U @ 2Hr Lactic Acid F/U @ 4Hr Calcium 8.9 Total Bilirubin 0.2 AST 43 H ALT 25 Alkaline Phosphatase 99 Troponin I High Sens 26.7 H Total Protein 7.4 Albumin 4.1 Urine Opiates Screen Ur Buprenorphine Scrn Ur Oxycodone Screen Urine Methadone Screen Urine Fentanyl Screen Ur Barbiturates Screen Ur Phencyclidine Scrn Ur Amphetamines Screen U Benzodiazepines Scrn Urine Cocaine Screen U Marijuana (THC) Screen Influenza Type A (PCR) NEGATIVE Influenza Type B (PCR) NEGATIVE RSV RNA Qual (PCR) NEGATIVE SARS-CoV-2 RNA (RT-PCR) NEGATIVE 12/01/24 12/01/24 12/01/24 02:33 02:46 04:38 WBC 14.7 H RBC 4.24 Hgb 9.5 L Hct 32.7 L MCV 77.1 L MCH 22.4 L MCHC 29.1 L RDW 17.3 H Plt Count 282 MPV 9.5 Immature Gran % (Auto) 0.6 H Neut % (Auto) 94.9 H Lymph % (Auto) 2.6 L [place] % (Auto) 1.8 L Eos % (Auto) 0.0 Baso % (Auto) 0.1 Lymph # (Auto) 0.4 L [place] # (Auto) 0.3 Eos # (Auto) 0.0 Baso # (Auto) 0.0 Abs Immat Gran (auto) 0.09 H Absolute Neuts (auto) 13.9 H Absolute Nucleated RBC 0.000 Nucleated RBC % (auto) 0.0 Smear Tech's Comments VERIFIED PT INR VBG pH VBG pCO2 VBG pO2 VBG HCO3 VBG O2 Saturation VBG Base Excess Sodium 135 Potassium 4.0 D Chloride 98 Carbon Dioxide 26 Anion Gap 15 BUN 24 H Creatinine 1.10 Estim Creat Clear Calc 49.1 Estimated GFR 51 POC Glucose 497 H* Random Glucose 503 H* Estimat Average Glucose 192 Hemoglobin A1c % 8.3 H Lactic Acid 3.7 H* Lactic Acid F/U @ 2Hr Lactic Acid F/U @ 4Hr Calcium 8.4 Total Bilirubin AST ALT Alkaline Phosphatase Troponin I High Sens Total Protein Albumin Urine Opiates Screen Ur Buprenorphine Scrn Ur Oxycodone Screen Urine Methadone Screen Urine Fentanyl Screen Ur Barbiturates Screen Ur Phencyclidine Scrn Ur Amphetamines Screen U Benzodiazepines Scrn Urine Cocaine Screen U Marijuana (THC) Screen Influenza Type A (PCR) Influenza Type B (PCR) RSV RNA Qual (PCR) SARS-CoV-2 RNA (RT-PCR) 12/01/24 12/01/24 12/01/24 07:20 08:54 11:18 WBC RBC Hgb Hct MCV MCH MCHC RDW Plt Count MPV Immature Gran % (Auto) Neut % (Auto) Lymph % (Auto) [place] % (Auto) Eos % (Auto) Baso % (Auto) Lymph # (Auto) [place] # (Auto) Eos # (Auto) Baso # (Auto) Abs Immat Gran (auto) Absolute Neuts (auto) Absolute Nucleated RBC Nucleated RBC % (auto) Smear Tech's Comments PT INR VBG pH VBG pCO2 VBG pO2 VBG HCO3 VBG O2 Saturation VBG Base Excess Sodium Potassium Chloride Carbon Dioxide Anion Gap BUN Creatinine Estim Creat Clear Calc Estimated GFR POC Glucose 241 H Random Glucose Estimat Average Glucose Hemoglobin A1c % Lactic Acid Lactic Acid F/U @ 2Hr 2.4 H* Lactic Acid F/U @ 4Hr 2.2 H* Calcium Total Bilirubin AST ALT Alkaline Phosphatase Troponin I High Sens Total Protein Albumin Urine Opiates Screen Ur Buprenorphine Scrn Ur Oxycodone Screen Urine Methadone Screen Urine Fentanyl Screen Ur Barbiturates Screen Ur Phencyclidine Scrn Ur Amphetamines Screen U Benzodiazepines Scrn Urine Cocaine Screen U Marijuana (THC) Screen Influenza Type A (PCR) Influenza Type B (PCR) RSV RNA Qual (PCR) SARS-CoV-2 RNA (RT-PCR) 12/01/24 12/01/24 12/01/24 12:29 15:11 16:05 WBC RBC Hgb Hct MCV MCH MCHC RDW Plt Count MPV Immature Gran % (Auto) Neut % (Auto) Lymph % (Auto) [place] % (Auto) Eos % (Auto) Baso % (Auto) Lymph # (Auto) [place] # (Auto) Eos # (Auto) Baso # (Auto) Abs Immat Gran (auto) Absolute Neuts (auto) Absolute Nucleated RBC Nucleated RBC % (auto) Smear Tech's Comments PT INR VBG pH VBG pCO2 VBG pO2 VBG HCO3 VBG O2 Saturation VBG Base Excess Sodium Potassium Chloride Carbon Dioxide Anion Gap BUN Creatinine Estim Creat Clear Calc Estimated GFR POC Glucose 206 H 289 H Random Glucose Estimat Average Glucose Hemoglobin A1c % Lactic Acid Lactic Acid F/U @ 2Hr Lactic Acid F/U @ 4Hr Calcium Total Bilirubin AST ALT Alkaline Phosphatase Troponin I High Sens Total Protein Albumin Urine Opiates Screen POSITIVE H Ur Buprenorphine Scrn Not Detected Ur Oxycodone Screen Positive H Urine Methadone Screen Not Detected Urine Fentanyl Screen Not Detected Ur Barbiturates Screen Not Detected Ur Phencyclidine Scrn Not Detected Ur Amphetamines Screen Not Detected U Benzodiazepines Scrn Not Detected Urine Cocaine Screen POSITIVE H U Marijuana (THC) Screen Not Detected Influenza Type A (PCR) Influenza Type B (PCR) RSV RNA Qual (PCR) SARS-CoV-2 RNA (RT-PCR) 12/01/24 12/02/24 12/02/24 21:06 06:55 07:16 WBC 14.3 H RBC 4.15 L Hgb 9.3 L Hct 32.0 L MCV 77.1 L MCH 22.4 L MCHC 29.1 L RDW 17.4 H Plt Count 275 MPV 9.1 L Immature Gran % (Auto) 0.7 H Neut % (Auto) 87.7 H Lymph % (Auto) 7.8 L [place] % (Auto) 3.7 Eos % (Auto) 0.0 Baso % (Auto) 0.1 Lymph # (Auto) 1.1 L [place] # (Auto) 0.5 Eos # (Auto) 0.0 Baso # (Auto) 0.0 Abs Immat Gran (auto) 0.10 H Absolute Neuts (auto) 12.5 H Absolute Nucleated RBC 0.000 Nucleated RBC % (auto) 0.0 Smear Tech's Comments PT INR VBG pH VBG pCO2 VBG pO2 VBG HCO3 VBG O2 Saturation VBG Base Excess Sodium 141 Potassium 4.7 Chloride 101 Carbon Dioxide 30 H Anion Gap 15 BUN 29 H Creatinine 0.81 Estim Creat Clear Calc 71.1 Estimated GFR > 60 POC Glucose 196 H 318 H Random Glucose 314 H Estimat Average Glucose Hemoglobin A1c % Lactic Acid Lactic Acid F/U @ 2Hr Lactic Acid F/U @ 4Hr Calcium 8.5 Total Bilirubin AST ALT Alkaline Phosphatase Troponin I High Sens Total Protein Albumin Urine Opiates Screen Ur Buprenorphine Scrn Ur Oxycodone Screen Urine Methadone Screen Urine Fentanyl Screen Ur Barbiturates Screen Ur Phencyclidine Scrn Ur Amphetamines Screen U Benzodiazepines Scrn Urine Cocaine Screen U Marijuana (THC) Screen Influenza Type A (PCR) Influenza Type B (PCR) RSV RNA Qual (PCR) SARS-CoV-2 RNA (RT-PCR) 12/02/24 10:59 WBC RBC Hgb Hct MCV MCH MCHC RDW Plt Count MPV Immature Gran % (Auto) Neut % (Auto) Lymph % (Auto) [place] % (Auto) Eos % (Auto) Baso % (Auto) Lymph # (Auto) [place] # (Auto) Eos # (Auto) Baso # (Auto) Abs Immat Gran (auto) Absolute Neuts (auto) Absolute Nucleated RBC Nucleated RBC % (auto) Smear Tech's Comments PT INR VBG pH VBG pCO2 VBG pO2 VBG HCO3 VBG O2 Saturation VBG Base Excess Sodium Potassium Chloride Carbon Dioxide Anion Gap BUN Creatinine Estim Creat Clear Calc Estimated GFR POC Glucose 168 H Random Glucose Estimat Average Glucose Hemoglobin A1c % Lactic Acid Lactic Acid F/U @ 2Hr Lactic Acid F/U @ 4Hr Calcium Total Bilirubin AST ALT Alkaline Phosphatase Troponin I High Sens Total Protein Albumin Urine Opiates Screen Ur Buprenorphine Scrn Ur Oxycodone Screen Urine Methadone Screen Urine Fentanyl Screen Ur Barbiturates Screen Ur Phencyclidine Scrn Ur Amphetamines Screen U Benzodiazepines Scrn Urine Cocaine Screen U Marijuana (THC) Screen Influenza Type A (PCR) Influenza Type B (PCR) RSV RNA Qual (PCR) SARS-CoV-2 RNA (RT-PCR) Mental Status Exam Mental Status Exam Patient Appearance: Well Grooomed and Appropriate Patient Orientation: Person, Place, Time and Situation Level of Consciousness: Awake, Appropriate and Alert Patient Behavior: Appropriate and Talkative Affect Description: Appropriate Speech Pattern: Clear Hallucinations: None Thought Process: Intact Thought Content: positive for Intact and positive for Circumstantial Judgement: Fair Medications Medications Current Medications Acetaminophen (Acetaminophen 325 Mg Tablet) 975 mg PO Q6H PRN PRN Reason: Pain, Mild 1-3,fever,headache Last Admin: 12/01/24 15:51 Dose: 975 mg Albuterol/Ipratropium (Albuterol/Iprat 2.5/0.5mg 3 Ml Ampul.Neb) 3 ml INHALE RQ4H WHILE AWAKE [facility] Last Admin: 12/02/24 11:30 Dose: 3 ml Albuterol/Ipratropium (Albuterol/Iprat 2.5/0.5mg 3 Ml Ampul.Neb) 3 ml INHALE RTID [facility] Last Admin: 12/02/24 11:31 Dose: Not Given Aspirin (Aspirin Enteric Coated 81 Mg Tablet.Dr) 81 mg PO DAILY [facility] Last Admin: 12/02/24 08:08 Dose: 81 mg Atorvastatin Calcium (Atorvastatin Calcium 40 Mg Tablet) 40 mg PO BEDTIME [facility] Last Admin: 12/01/24 21:51 Dose: 40 mg Calcium Carbonate (Calcium Carbonate 750 Mg Tab.Chew) 750 mg PO Q4H PRN PRN Reason: Heartburn Dextrose (Dextrose 50 % 25 Gm/50 Ml Syringe) 25 gm IVPUSH Q15M PRN; Protocol PRN Reason: per Hypoglycemia Standing Ord. Enoxaparin Sodium (Enoxaparin Sodium 40 Mg/0.4 Ml Syringe) 40 mg SUBCUT Q24H [facility] Last Admin: 12/02/24 08:10 Dose: 40 mg Furosemide (Furosemide 20 Mg Tablet) 20 mg PO DAILY [facility]; Protocol Last Admin: 12/02/24 08:09 Dose: 20 mg Gabapentin (Gabapentin 400 Mg Capsule) 800 mg PO QID [facility] Last Admin: 12/02/24 08:09 Dose: 800 mg Glipizide (Glipizide 5 Mg Tablet) 5 mg PO DAILY [facility] Last Admin: 12/02/24 08:08 Dose: 5 mg Glucose (Glucose Gel 15 Gm Gel..Gram.) 15 gm PO Q15M PRN; Protocol PRN Reason: per Hypoglycemia Standing Ord. Glucose (Glucose Gel 15 Gm Gel..Gram.) 10 gm PO Q15M PRN PRN Reason: hypoglycemia Guaifenesin (Guaifenesin La 600 Mg Tab.Er.12h) 600 mg PO BID [facility] Last Admin: 12/02/24 08:08 Dose: 600 mg Guaifenesin/Codeine Phosphate (Guaifen/Codeine Sf 200/20/10ml 10 Ml Liquid) 10 ml PO Q4H PRN PRN Reason: cough Ibuprofen (Ibuprofen 800 Mg Tablet) 800 mg PO BID PRN PRN Reason: Headache Insulin Glargine (Insulin Glargine,Hum.Rec.Anlog 100 Unit/Ml 10 Ml Vial) 20 unit SUBCUT DAILY [facility] Last Admin: 12/02/24 08:08 Dose: 20 unit Insulin Glargine (Insulin Glargine,Hum.Rec.Anlog 100 Unit/Ml 10 Ml Vial) 10 unit SUBCUT BEDTIME [facility] Last Admin: 12/01/24 21:50 Dose: 10 unit Insulin Human Lispro (Insulin Lispro 100 Unit/Ml 3 Ml Vial) 0 unit SUBCUT QIDACHS [facility]; Protocol Last Admin: 12/02/24 08:07 Dose: 8 unit Losartan Potassium (Losartan Potassium 50 Mg Tablet) 50 mg PO DAILY [facility]; Protocol Last Admin: 12/02/24 08:09 Dose: 50 mg Magnesium Hydroxide (Milk Of Magnesia 30 Ml Oral.Susp) 30 ml PO DAILY PRN PRN Reason: Constipation Melatonin (Melatonin 3 Mg Tablet) 6 mg PO BEDTIME PRN PRN Reason: Insomnia Methylprednisolone Sodium Succinate (Methylprednisolone Sod Succ 125 Mg Vial) 60 mg IVPUSH BID [facility] Last Admin: 12/02/24 08:08 Dose: 60 mg Nicotine (Nicotine 21 Mg Patch.Td24) 21 mg TRANSDERMA Q24H [facility] Last Admin: 12/01/24 16:53 Dose: 21 mg Ondansetron HCl (Ondansetron Hcl 4 Mg/2 Ml Vial) 4 mg IVPUSH Q8H PRN PRN Reason: Nausea and Vomiting Oxycodone HCl (Oxycodone Hcl Immed Release 5 Mg Tablet) 5 mg PO Q6H PRN PRN Reason: Pain, Moderate(Pain Scale 4-6) Last Admin: 12/01/24 15:51 Dose: 5 mg Quetiapine Fumarate (Quetiapine Fumarate 25 Mg Tablet) 25 mg PO BEDTIME [facility] Last Admin: 12/01/24 21:51 Dose: 25 mg Quetiapine Fumarate (Quetiapine Fumarate 25 Mg Tablet) 25 mg PO DAILY PRN PRN Reason: racing thoughts Last Admin: 12/01/24 18:09 Dose: 25 mg Sertraline HCl (Sertraline Hcl 25 Mg Tablet) 25 mg PO DAILY [facility] Last Admin: 12/02/24 08:10 Dose: 25 mg Sertraline HCl (Sertraline Hcl 100 Mg Tablet) 100 mg PO DAILY [facility] Last Admin: 12/02/24 08:08 Dose: 100 mg Sodium Chloride (0.9 % Sodium Chloride Flush 3 Ml Syringe) 3 ml IVFLUSH QSHIFT [facility] Last Admin: 12/02/24 08:14 Dose: 3 ml Theophylline (Theophylline Anhydrous Er 400 Mg Tab.Er.24h) 400 mg PO BID [facility] Last Admin: 12/02/24 08:09 Dose: 400 mg Tizanidine HCl (Tizanidine Hcl 4 Mg Tablet) 4 mg PO BID [facility] Last Admin: 12/02/24 08:09 Dose: 4 mg Allergies Allergies Allergy/AdvReac Type Severity Reaction Status Date / Time doxycycline Allergy Severe Swelling Verified 11/30/24 20:39 varenicline [From CHANTIX] Allergy Severe ANAPHYLAXIS Verified 11/30/24 20:39 azithromycin Allergy Intermediate Rash Verified 11/30/24 20:39 barium sulfate Allergy Intermediate angioedema Verified 11/30/24 20:39 cetirizine Allergy Mild Rash Verified 11/30/24 20:39 famotidine Allergy Mild Rash Verified 11/30/24 20:39 linaclotide [Linzess] Allergy Mild Rash Verified 11/30/24 20:39 Assessment & Plan Assessment & Plan (1) Cocaine use disorder: Status: Acute Code(s): F14.10 - Cocaine abuse, uncomplicated Assessment and Plan: * restart topomax 25mg BID, after one week increase to 50mg BID--rx sent to mail order pharmacy. At this time, patient still declines to follow up with [facility] provider in the community. * provided patient with anxiety workbook as she identifies anxiety as the main trigger for use * reinforced risk of overdose with ongoing stimulant use--patient declines narcan stating she has many at home * belt operator Christopher Hopkins, aware of plan Total time managing care of this patient today ___30_ minutes. [facility] Past Medical History Medical History COPD (chronic obstructive pulmonary disease) Cocaine use disorder Cocaine abuse GERD (gastroesophageal reflux disease) Constipation Non-insulin dependent type 2 diabetes mellitus HENRY (obstructive sleep apnea) Acute exacerbation of chronic obstructive airways disease Asthma with exacerbation Obesity hypoventilation syndrome Chronic lung disease Hypoxic respiratory failure Nocturnal hypoxemia Diabetes mellitus COPD exacerbation Crack cocaine use Hyperkalemia Metabolic acidosis Leukocytosis Chest discomfort Chronic renal failure, stage 2 (mild) SOB (shortness of breath) Asthma Smoker Rotator cuff tendonitis GERD (gastroesophageal reflux disease) Chronic idiopathic constipation Bustos's esophagus Depression High triglycerides Gastroparesis Carpal tunnel syndrome of right wrist Nausea & vomiting Hernia Acute and chronic respiratory failure, unspecified whether with hypoxia or hypercapnia HTN (hypertension) Obesity (BMI 30-39.9) Knee pain, bilateral Family History Family History Father Heart disease HENRY (obstructive sleep apnea) Family history of breast cancer Mother Asthma Emphysema, unspecified Bronchitis Smoker Alcoholism Bone marrow disease Maternal Grandmother Diabetes Surgical History Surgical History History of cholecystectomy (~1988) History of carpal tunnel release Hx of tubal ligation History of pubovaginal sling (~2015) History of umbilical hernia repair (~2001) Hx of section History of open reduction and internal fixation (ORIF) procedure History of esophagogastroduodenoscopy (EGD) Social History Social History Household Members: Family Household Members Other:: 2 Housing: House Are you a primary career education teacher to a significant other at home: No Do you presently have visiting nurse or other home services: Yes Unable to assess alcohol history related to: Unknown Alcohol intake: unknown Comment: Sleeping Patient Tobacco Use Status: Current everyday Tobacco user Tobacco use type: Cigarette Cigarette Packs Per Day: 0.5 Cigarettes Per Day: 10.0 Years Smoked: 40 e-Cigarette/Vaping Use: Currently Using Second Hand Smoke Exposure: Yes Substance Use Type: Crack/Cocaine Advance Directives Date on File: 12/19/23 service: No Current occupational status: disabled 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
[2024-12-02] MEDS: guaiFEN/Codeine SF 200/20/10ML 10 ML LIQUID PO (12:07)
--- NOTE | 2024-12-02 13:27 | PM.DS ---
DS: Providers Provider Date of Service: 12/02/24 Date of admission: 11/30/24 22:57 Date of discharge: 12/02/24 Primary care physician: None Physician Consults: 12/01/24 01:52 Consult to Infectious Diseases Routine Consulting Provider: [facility] [place] [facility] Reason for consultation: HAP Has provider been notified: No Consult to Pulmonology Routine Consulting Provider: [facility] [place] [facility] Reason for consultation: resp failure, HAP Has provider been notified: No 12/01/24 01:54 Addiction Medicine Provider Routine Consulting Provider: Addiction Covering Reason for consultation: JOE, crack cocaine, wants to see you Has provider been notified: No 12/01/24 15:15 Addiction Medicine Provider Routine Consulting Provider: Addiction Covering Reason for consultation: crack cocaine use DS: Diagnosis Discharge Diagnosis (1) Cocaine use disorder: Status: Acute (2) COPD (chronic obstructive pulmonary disease): Status: Acute (3) Acute hyperkalemia: Status: Acute (4) Tobacco use: Status: Chronic (5) Acute on chronic respiratory failure with hypoxia and hypercapnia: Status: Acute (6) Acute exacerbation of chronic obstructive pulmonary disease: Status: Acute (7) Hyperglycemia due to type 2 diabetes mellitus: Status: Acute (8) Acute lactic acidosis: Status: Acute DS: Summary Hospital Course Hospital Course: Admission note HPI pt is a 54 yo f with a pmhx significant for COPD and chronic respiratory failure with hypoxia and hypercapnia on BiPAP at night, HENRY/OHS, HFpEF, diabetes mellitus, cocaine use disorder, and tobacco use disorder, who presented to the ED last night due to SOB x2 days, yellow productive cough, nausea, and chills. she also complains of intermittent chest pain and cannot describe it. nothing triggers it, it occurs randomly. She was in respiratory distress when EMS arrived and she was placed on BiPAP and given 126mg solumedrol and a duoneb with some improvement. when the pt arrived to the ED she was tachycardic and tachypneic and found to have bilateral pneumonia. she was started on levaquin and ceftriaxone and has jsut transitioned off BiPAP. Hospital course Admitted for treatment of acute on chronic respiratory failure with hypoxia and hypercapnia and sepsis, secondary to pneumonia and acute COPD exacerbation complicated with lactic acidosis with WBC 17.5, tachycardic and tachypneic, lactic acid and blood cultures remanined negative. CXR with interval mild worsening of bilateral basilar pulmonary opacities which may represent pneumonia or atelectasis. COVID/flu/RSV negative. - patient started on ceftriaxone and levaquin in ED, switch to vancomycin and zosyn. given solumedrol 125mg and duoneb with improvement. continue solumedrol 60mg BID and duonebs q4h while awake. ID and pulm consulted amd recommended home Augmentin and continue steroid and nebulizer treatment. Advised to use Bipap for sleep at home. RT followed with her to u cocaine abuse, addiction med consult, started her on Topamax 25 mg bid. after one week increase to 50mg BID. provided outpatient resources. tobacco use disorder. smoking cessation encouraged. Discharge plan Avoid smoking and Cocaine Follow with PCP for smoking cessation treatment Continue tapering dose Prednisone you were prescribed recently Cough medicine as needed Augmentin for 5 days Topamax per recovery health team Use Bipap at bedtime Time Attestation Discharge Coordination Time (in mins): 43 Quality: Safe Use of Opioids Does Pt have an Active Cancer Diagnosis on the Problem List?: No Quality: Stroke Does the patient have a stroke diagnosis?: No Physical Exam Vital Signs: Vital Signs: Last Vital Signs Temp 97.3 F 12/02/24 11:14 Pulse 110 H 12/02/24 11:30 Resp 18 12/02/24 11:30 BP 118/56 L 12/02/24 11:14 Pulse Ox 100 12/02/24 11:14 O2 Del Method Nasal Cannula 12/02/24 11:14 O2 Flow Rate 2 12/02/24 11:14 BMI result Body Mass Index 33.1 Const: Other: Constitutional : interactive, not in distress Cardiovascular : no JVP, no lower extremity edema Respiratory : bilateral chest movement, not in resp distress , No bilateral wheezing, on O2 supplement Gastrointestinal: soft, lax, Non tender Skin : Warm, Dry Neurological : Alert & oriented , No focal deficit DS: Data Data Completed and Pending Completed studies during hospitalization [Text1]: Procedures Assistance with Respiratory Ventilation, 24-96 Consecutive Hours, Continuous Positive Airway Pressure (10/30/24) Assistance with Respiratory Ventilation, Less than 24 Consecutive Hours, Continuous Positive Airway Pressure (10/21/24) Insertion of Endotracheal Airway into Trachea, Via Natural or Artificial Opening (10/30/24) Insertion of Infusion Device into Superior Vena Cava, Percutaneous Approach (11/03/20) Introduction of Vasopressor into Peripheral Vein, Percutaneous Approach (10/30/24) Respiratory Ventilation, Less than 24 Consecutive Hours (10/30/24) Labs on day of discharge: Laboratory Results - last 24 hr 12/01/24 12/01/24 12/01/24 15:11 16:05 21:06 WBC RBC Hgb Hct MCV MCH MCHC RDW Plt Count MPV Immature Gran % (Auto) Neut % (Auto) Lymph % (Auto) Patrick % (Auto) Eos % (Auto) Baso % (Auto) Lymph # (Auto) Patrick # (Auto) Eos # (Auto) Baso # (Auto) Abs Immat Gran (auto) Absolute Neuts (auto) Absolute Nucleated RBC Nucleated RBC % (auto) Sodium Potassium Chloride Carbon Dioxide Anion Gap BUN Creatinine Estim Creat Clear Calc Estimated GFR POC Glucose 289 H 196 H Random Glucose Calcium Urine Opiates Screen POSITIVE H Ur Buprenorphine Scrn Not Detected Ur Oxycodone Screen Positive H Urine Methadone Screen Not Detected Urine Fentanyl Screen Not Detected Ur Barbiturates Screen Not Detected Ur Phencyclidine Scrn Not Detected Ur Amphetamines Screen Not Detected U Benzodiazepines Scrn Not Detected Urine Cocaine Screen POSITIVE H U Marijuana (THC) Screen Not Detected 12/02/24 12/02/24 12/02/24 06:55 07:16 10:59 WBC 14.3 H RBC 4.15 L Hgb 9.3 L Hct 32.0 L MCV 77.1 L MCH 22.4 L MCHC 29.1 L RDW 17.4 H Plt Count 275 MPV 9.1 L Immature Gran % (Auto) 0.7 H Neut % (Auto) 87.7 H Lymph % (Auto) 7.8 L Patrick % (Auto) 3.7 Eos % (Auto) 0.0 Baso % (Auto) 0.1 Lymph # (Auto) 1.1 L Patrick # (Auto) 0.5 Eos # (Auto) 0.0 Baso # (Auto) 0.0 Abs Immat Gran (auto) 0.10 H Absolute Neuts (auto) 12.5 H Absolute Nucleated RBC 0.000 Nucleated RBC % (auto) 0.0 Sodium 141 Potassium 4.7 Chloride 101 Carbon Dioxide 30 H Anion Gap 15 BUN 29 H Creatinine 0.81 Estim Creat Clear Calc 71.1 Estimated GFR > 60 POC Glucose 318 H 168 H Random Glucose 314 H Calcium 8.5 Urine Opiates Screen Ur Buprenorphine Scrn Ur Oxycodone Screen Urine Methadone Screen Urine Fentanyl Screen Ur Barbiturates Screen Ur Phencyclidine Scrn Ur Amphetamines Screen U Benzodiazepines Scrn Urine Cocaine Screen U Marijuana (THC) Screen Preliminary micro results at discharge 12/01/24 02:33 Blood Culture - Preliminary Blood - Venous No growth after 24 hours. 12/01/24 02:33 Blood Culture - Preliminary Blood - Venous No growth after [address] scan - chest: Radiologist's impression: CXR IMPRESSION: 1. Interval mild worsening of bilateral basilar pulmonary opacities which may represent pneumonia or atelectasis. Discharge Plan Discharge Anticipated Discharge Date/Time: 12/02/24 13:21 Patient Disposition: Home Health Service Discharge Diagnosis: COPD exacerbation Referrals: Physician,None [Primary Care Provider] - 1 Week Discharge Medications: New topiramate 25 mg tablet 25 mg PO BID Qty: 98 0RF Rx Instructions: take one tab twice daily for one week, then increase to 2 tabs twice daily amoxicillin-pot clavulanate 875-125 mg tablet 1 tab PO BID Qty: 10 0RF Continued (DME) cane Device See Rx Instructions .Route Qty: 1 0RF Rx Instructions: Standard cane (DME) Rollator walker See Rx Instructions .Route .MEDSUPPLY Qty: 1 0RF Rx Instructions: As directed (DME) pulse oximeter See Rx Instructions .Route .MEDSUPPLY Qty: 1 0RF Rx Instructions: As directed (DME) FreeStyle Jemima [address] [place] Misc See Rx Instructions .Route Qty: 1 0RF Rx Instructions: To monitor blood sugar 4 times per day albuterol sulfate 2.5 mg /3 mL (0.083 %) solution for nebulization 2.5 mg inhalation Q4H PRN (Reason: Shortness Of Breath/Wheezing) Qty: 180 6RF theophylline 400 mg tablet extended release 24 hr 400 mg PO BID 90 Days Qty: 180 4RF albuterol sulfate [Ventolin HFA] 90 mcg/actuation HFA aerosol inhaler 2 puff inhalation Q6H PRN (Reason: for wheezing) Qty: 1 6RF acetaminophen 650 mg tablet extended release 650 mg PO Q12H PRN (Reason: pain) 30 Days Qty: 60 0RF aspirin 81 mg tablet,delayed release (DR/EC) 81 mg PO DAILY 90 Days Qty: 90 1RF atorvastatin 40 mg tablet 40 mg PO BEDTIME Qty: 90 0RF (DME) FreeStyle Lite Strips Strip See Rx Instructions .ROUTE .MEDSUPPLY Qty: 100 1RF Rx Instructions: Use to check blood sugar daily or if symptomatic hypo/hypergylcemia calcium carbonate-vitamin D3 500 mg-10 mcg (400 unit) tablet 1 tab PO DAILY Qty: 90 0RF (DME) 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 meter [FreeStyle Lite Meter] Kit See Rx Instructions .ROUTE .MEDSUPPLY Qty: 1 0RF Rx Instructions: Use to check blood sugar daily or if symptomatic for hypo/hyperglycemia esomeprazole magnesium 40 mg capsule,delayed release(DR/EC) 40 mg PO DAILY@0630 Qty: 90 1RF fexofenadine [Elisabeth Allergy] 180 mg tablet 180 mg PO DAILY Qty: 30 3RF furosemide 20 mg tablet 20 mg PO DAILY Qty: 90 3RF gabapentin 800 mg tablet 800 mg PO QID 30 Days Qty: 120 1RF glipizide 5 mg tablet 5 mg PO DAILY Qty: 90 1RF glucose 4 gram tablet,chewable 16 g PO Q15M MDD 8 tabs PRN (Reason: hypoglycemia) Qty: 100 1RF Rx Instructions: until symptoms of low blood sugar are controlled ibuprofen 800 mg tablet 800 mg PO BID PRN (Reason: Headache) 30 Days Qty: 60 0RF Rx Instructions: please use sparingly due to diabetes ipratropium-albuterol 0.5 mg-3 mg(2.5 mg base)/3 mL solution for nebulization 3 ml INHALATION TID Qty: 180 0RF (DME) lancets [FreeStyle Lancets] 28 gauge misc See Rx Instructions .ROUTE .MEDSUPPLY Qty: 100 1RF Rx Instructions: Use to check blood sugar daily or if symptomatic hypo/hypergylcemia losartan 50 mg tablet 50 mg PO DAILY Qty: 90 0RF (DME) FreeStyle Jemima 3 Plus Sensor Device See Rx Instructions .Route Qty: 2 5RF Rx Instructions: To monitor blood sugars 4 times per day. Change sensor every 15 days (DME) pen needle, diabetic 31 gauge x 5/16 needle See Rx Instructions .Route Qty: 100 0RF Rx Instructions: Use to inject insulin once a day (DME) [facility] [place] .Route Qty: 1 0RF Rx Instructions: As directed sertraline 25 mg tablet 25 mg PO DAILY Rx Instructions: Taken with 100mg tab for TDD of 125mg. sertraline 100 mg tablet 100 mg PO DAILY Rx Instructions: TAKE WITH 25MG FOR TOTAL OF 125MG quetiapine [Seroquel] 25 mg tablet 25 mg PO BEDTIME quetiapine [Seroquel] 25 mg tablet 25 mg PO DAILY PRN (Reason: racing thoughts) dextrose [Glucose Gel] 40 % gel 10 g PO Q15M PRN (Reason: hypoglycemia) Qty: 300 0RF Rx Instructions: until symptoms of low blood sugar are controlled glucagon HCl [Glucagon (HCl) Emergency Kit] 1 mg recon soln 1 mg subcut Q20M PRN (Reason: hypoglycemia) Qty: 1 0RF Rx Instructions: until target blood sugar attained Stiolto Respimat 2.5-2.5 mcg/actuation mist 2 puff inhalation DAILY prednisone 10 mg tablet See Taper PO DIRECTED Qty: 30 0RF Taper: Prednisone 40 mg daily for 3 Days and 0 Hour 30 mg daily for 3 Days and 0 Hour 20 mg daily for 3 Days and 0 Hour 10 mg daily for 3 Days and 0 Hour Rx Instructions: see taper instructions naloxone [Narcan] 4 mg/actuation spray,non-aerosol 4 mg intranasal Q2M PRN (Reason: opioid overdose) Qty: 2 0RF Rx Instructions: spray 1 dose into ONE nostril; alternate nostrils w each dose until help arrives insulin glargine [Lantus Solostar U-100 Insulin] 100 unit/mL (3 mL) insulin pen 10 unit subcut BEDTIME codeine-guaifenesin 10-100 mg/5 mL liquid 10 ml PO Q4-6H PRN (Reason: cough) Qty: 473 0RF nicotine 21 mg/24 hr patch 24 hour 1 patch transdermal Q24H Qty: 28 0RF tramadol 50 mg tablet 50 mg PO Q6H PRN (Reason: pain) Qty: 20 0RF tizanidine 4 mg tablet 4 mg PO Q12H Rx Instructions: do not take concurrently with famotidine Discharge Orders: Discharge Order (Routine); Ordered 12/02/24 Ordered By: Khaled Abuhashmeh Diet: Low salt diet Activity on Discharge: As tolerated Stand Alone Forms: Patient Portal Discharge page Print Language: Kyrgyz Care Plan Goals: Avoid smoking and Cocaine Follow with PCP for smoking cessation treatment Continue tapering dose Prednisone you were prescribed recently Cough medicine as needed Augmentin for 5 days Topamax per recovery health team Use Bipap at bedtime Health Concerns: COPD exacerbation Plan of Treatment: Steroids, Antibiotics and smoking cessation Assessment: as above
--- NOTE | 2024-12-02 13:47 | P.CDIM_ITS ---
PROVIDER RESPONSE TEXT: To clarify, the appropriate diagnosis supported by the clinical indicators: Diabetes mellitus Type 2 with hyperglycemia: confirmed QUERY TEXT: PHYSICIAN'S DOCUMENTATION REQUEST Date of Query: 12/02/2024 01:02 PM EDT Patient Name: Marika Scott Admit Date: 12/01/2024 Dear Niru Boyd MD, A review of the medical record indicates additional documentation may be needed. Please review below and update the documentation accordingly. Clinical Indicators: Event note: Repeat blood sugar 497 2 hours later 503 Start Lantus daily. Diabetes mellitus Type 2 Please clarify the following regarding the Complications of Diabetes Mellitus (DM): Diabetes mellitus Type 2 with hyperglycemia possible, probable, suspected etc. Other specifics Other (explain) Clinically unable to determine (explain) Thank you, Brandi Lizama, CCS, CDIS Use of terms such as suspected, likely, concern for, or probable (associated with a specific diagnosi s that is being evaluated, monitored, or treated as if it exists) are acceptable and can be coded in the inpatient se tting, when documented at the time of discharge. Please use your independent medical judgment in providing your response. THIS QUERY IS PART OF THE PERMANENT MEDICAL RECORD
--- NOTE | 2024-12-02 13:47 | P.CDIM_ITS ---
PROVIDER RESPONSE TEXT: To clarify, the appropriate diagnosis supported by the clinical indicators: Acute Lactic acidosis: possible QUERY TEXT: PHYSICIAN'S DOCUMENTATION REQUEST Date of Query: 12/02/2024 11:19 AM EDT Patient Name: Marika Scott Admit Date: 12/01/2024 Dear Niru Boyd MD, A review of the medical record indicates additional documentation may be needed. Please review below and update the documentation accordingly. Clinical Indicators: Event note 12/01/24 - Also lactic acid was 3.7, likely secondary to hypoxia. No IVF given due to concern for fluid overload. Repeat lactic acid pending. Based on the above information, is there a diagnosis that correlates with the findings: Acute Lactic acidosis possible, probable, suspected, resolved, etc. Chronic Lactic acidosis Other specified Other (explain) Clinically unable to determine (explain) Thank you, Brandi Lizama, CCS, CDIS Use of terms such as suspected, likely, concern for, or probable (associated with a specific diagnosi s that is being evaluated, monitored, or treated as if it exists) are acceptable and can be coded in the inpatient se tting, when documented at the time of discharge. Please use your independent medical judgment in providing your response. THIS QUERY IS PART OF THE PERMANENT MEDICAL RECORD
--- NOTE | 2024-12-02 14:36 | MHC.CM.PN ---
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
--- NOTE | 2024-12-02 14:45 | P.CNID_ITS ---
History of Present Illness Data of Consult Service Date: 12/02/24 Requesting physician: Niru Boyd Primary Care Provider: None Physician HPI Reason for consult: hypoxia She presents with shortness of breath and cough for two days. She has diffuse infiltrate. She reportedly smokes cocaine. She is on 2 l oxygen chronically and is on baselint. She has some yellow sputum production. [facility] Past Medical History Medical History COPD (chronic obstructive pulmonary disease) Cocaine use disorder Cocaine abuse GERD (gastroesophageal reflux disease) Constipation Non-insulin dependent type 2 diabetes mellitus HENRY (obstructive sleep apnea) Acute exacerbation of chronic obstructive airways disease Asthma with exacerbation Obesity hypoventilation syndrome Chronic lung disease Hypoxic respiratory failure Nocturnal hypoxemia Diabetes mellitus COPD exacerbation Crack cocaine use Hyperkalemia Metabolic acidosis Leukocytosis Chest discomfort Chronic renal failure, stage 2 (mild) SOB (shortness of breath) Asthma Smoker Rotator cuff tendonitis GERD (gastroesophageal reflux disease) Chronic idiopathic constipation Bustos's esophagus Depression High triglycerides Gastroparesis Carpal tunnel syndrome of right wrist Nausea & vomiting Hernia Acute and chronic respiratory failure, unspecified whether with hypoxia or hypercapnia HTN (hypertension) Obesity (BMI 30-39.9) Knee pain, bilateral Family History Family History Father Heart disease HENRY (obstructive sleep apnea) Family history of breast cancer Mother Asthma Emphysema, unspecified Bronchitis Smoker Alcoholism Bone marrow disease Maternal Grandmother Diabetes Family history: reviewed and not pertinent Surgical History Surgical History History of cholecystectomy (~1988) History of carpal tunnel release Hx of tubal ligation History of pubovaginal sling (~2015) History of umbilical hernia repair (~2001) Hx of section History of open reduction and internal fixation (ORIF) procedure History of esophagogastroduodenoscopy (EGD) Social History Social History Household Members: Family Household Members Other:: 2 Housing: House Are you a primary nurse wound care to a significant other at home: No Do you presently have visiting nurse or other home services: Yes Unable to assess alcohol history related to: Unknown Alcohol intake: unknown Comment: Sleeping Patient Tobacco Use Status: Current everyday Tobacco user Tobacco use type: Cigarette Cigarette Packs Per Day: 0.5 Cigarettes Per Day: 10.0 Years Smoked: 40 e-Cigarette/Vaping Use: Currently Using Second Hand Smoke Exposure: Yes Substance Use Type: Crack/Cocaine Advance Directives Date on File: 12/19/23 service: No Current occupational status: disabled 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 Meds Allergies Allergy/AdvReac Type Severity Reaction Status Date / Time doxycycline Allergy Severe Swelling Verified 11/30/24 20:39 [email or web address] [From CHANTIX] Allergy Severe ANAPHYLAXIS Verified 11/30/24 20:39 azithromycin Allergy Intermediate Rash Verified 11/30/24 20:39 barium sulfate Allergy Intermediate angioedema Verified 11/30/24 20:39 cetirizine Allergy Mild Rash Verified 11/30/24 20:39 famotidine Allergy Mild Rash Verified 11/30/24 20:39 linaclotide [Linzess] Allergy Mild Rash Verified 11/30/24 20:39 Active Medications: Current Medications Acetaminophen (Acetaminophen 325 Mg Tablet) 975 mg PO Q6H PRN PRN Reason: Pain, Mild 1-3,fever,headache Last Admin: 12/01/24 15:51 Dose: 975 mg Albuterol/Ipratropium (Albuterol/Iprat 2.5/0.5mg 3 Ml Ampul.Neb) 3 ml INHALE RQ4H WHILE AWAKE [facility] Last Admin: 12/02/24 11:30 Dose: 3 ml Albuterol/Ipratropium (Albuterol/Iprat 2.5/0.5mg 3 Ml Ampul.Neb) 3 ml INHALE RTID [facility] Last Admin: 12/02/24 11:31 Dose: Not Given Aspirin (Aspirin Enteric Coated 81 Mg Tablet.Dr) 81 mg PO DAILY [facility] Last Admin: 12/02/24 08:08 Dose: 81 mg Atorvastatin Calcium (Atorvastatin Calcium 40 Mg Tablet) 40 mg PO BEDTIME [facility] Last Admin: 12/01/24 21:51 Dose: 40 mg Calcium Carbonate (Calcium Carbonate 750 Mg Tab.Chew) 750 mg PO Q4H PRN PRN Reason: Heartburn Dextrose (Dextrose 50 % 25 Gm/50 Ml Syringe) 25 gm IVPUSH Q15M PRN; Protocol PRN Reason: per Hypoglycemia Standing Ord. Enoxaparin Sodium (Enoxaparin Sodium 40 Mg/0.4 Ml Syringe) 40 mg SUBCUT Q24H [facility] Last Admin: 12/02/24 08:10 Dose: 40 mg Furosemide (Furosemide 20 Mg Tablet) 20 mg PO DAILY [facility]; Protocol Last Admin: 12/02/24 08:09 Dose: 20 mg Gabapentin (Gabapentin 400 Mg Capsule) 800 mg PO QID [facility] Last Admin: 12/02/24 12:07 Dose: 800 mg Glipizide (Glipizide 5 Mg Tablet) 5 mg PO DAILY [facility] Last Admin: 12/02/24 08:08 Dose: 5 mg Glucose (Glucose Gel 15 Gm Gel..Gram.) 15 gm PO Q15M PRN; Protocol PRN Reason: per Hypoglycemia Standing Ord. Glucose (Glucose Gel 15 Gm Gel..Gram.) 10 gm PO Q15M PRN PRN Reason: hypoglycemia Guaifenesin (Guaifenesin La 600 Mg Tab.Er.12h) 600 mg PO BID [facility] Last Admin: 12/02/24 08:08 Dose: 600 mg Guaifenesin/Codeine Phosphate (Guaifen/Codeine Sf 200/20/10ml 10 Ml Liquid) 10 ml PO Q4H PRN PRN Reason: cough Last Admin: 12/02/24 12:07 Dose: 10 ml Ibuprofen (Ibuprofen 800 Mg Tablet) 800 mg PO BID PRN PRN Reason: Headache Insulin Glargine (Insulin Glargine,Hum.Rec.Anlog 100 Unit/Ml 10 Ml Vial) 20 unit SUBCUT DAILY [facility] Last Admin: 12/02/24 08:08 Dose: 20 unit Insulin Glargine (Insulin Glargine,Hum.Rec.Anlog 100 Unit/Ml 10 Ml Vial) 10 unit SUBCUT BEDTIME [facility] Last Admin: 12/01/24 21:50 Dose: 10 unit Insulin Human Lispro (Insulin Lispro 100 Unit/Ml 3 Ml Vial) 0 unit SUBCUT QIDACHS [facility]; Protocol Last Admin: 12/02/24 12:07 Dose: 2 unit Losartan Potassium (Losartan Potassium 50 Mg Tablet) 50 mg PO DAILY [facility]; Protocol Last Admin: 12/02/24 08:09 Dose: 50 mg Magnesium Hydroxide (Milk Of Magnesia 30 Ml Oral.Susp) 30 ml PO DAILY PRN PRN Reason: Constipation Melatonin (Melatonin 3 Mg Tablet) 6 mg PO BEDTIME PRN PRN Reason: Insomnia Methylprednisolone Sodium Succinate (Methylprednisolone Sod Succ 125 Mg Vial) 60 mg IVPUSH BID [facility] Last Admin: 12/02/24 08:08 Dose: 60 mg Nicotine (Nicotine 21 Mg Patch.Td24) 21 mg TRANSDERMA Q24H [facility] Last Admin: 12/01/24 16:53 Dose: 21 mg Ondansetron HCl (Ondansetron Hcl 4 Mg/2 Ml Vial) 4 mg IVPUSH Q8H PRN PRN Reason: Nausea and Vomiting Oxycodone HCl (Oxycodone Hcl Immed Release 5 Mg Tablet) 5 mg PO Q6H PRN PRN Reason: Pain, Moderate(Pain Scale 4-6) Last Admin: 12/01/24 15:51 Dose: 5 mg Quetiapine Fumarate (Quetiapine Fumarate 25 Mg Tablet) 25 mg PO BEDTIME [facility] Last Admin: 12/01/24 21:51 Dose: 25 mg Quetiapine Fumarate (Quetiapine Fumarate 25 Mg Tablet) 25 mg PO DAILY PRN PRN Reason: racing thoughts Last Admin: 12/01/24 18:09 Dose: 25 mg Sertraline HCl (Sertraline Hcl 25 Mg Tablet) 25 mg PO DAILY [facility] Last Admin: 12/02/24 08:10 Dose: 25 mg Sertraline HCl (Sertraline Hcl 100 Mg Tablet) 100 mg PO DAILY [facility] Last Admin: 12/02/24 08:08 Dose: 100 mg Sodium Chloride (0.9 % Sodium Chloride Flush 3 Ml Syringe) 3 ml IVFLUSH QSHIFT [facility] Last Admin: 12/02/24 08:14 Dose: 3 ml Theophylline (Theophylline Anhydrous Er 400 Mg Tab.Er.24h) 400 mg PO BID [facility] Last Admin: 12/02/24 08:09 Dose: 400 mg Tizanidine HCl (Tizanidine Hcl 4 Mg Tablet) 4 mg PO BID [facility] Last Admin: 12/02/24 08:09 Dose: 4 mg Home Medications ?Medication ?Instructions ?Recorded ?Confirmed ?Last Taken ?Type tizanidine 4 mg tablet 4 mg PO Q12H muscle spasm 10/21/24 12/01/24 11/29/24 History quetiapine 25 mg tablet (Seroquel) 25 mg PO BEDTIME hallucinations 11/12/24 12/01/24 11/29/24 History quetiapine 25 mg tablet (Seroquel) 25 mg PO DAILY PRN racing thoughts 11/12/24 12/01/24 11/17/24 History sertraline 100 mg tablet 100 mg PO DAILY 11/12/24 12/01/24 11/29/24 History sertraline 25 mg tablet 25 mg PO DAILY 11/12/24 12/01/24 11/29/24 History tiotropium 2.5 mcg-olodaterol 2.5 2 puff inhalation DAILY 11/26/24 12/01/24 11/29/24 History mcg/actuation mist for inhalation (Stiolto Respimat) insulin glargine 100 unit/mL (3 10 unit subcut BEDTIME 12/01/24 12/01/24 11/29/24 History mL) subcutaneous pen (Lantus Solostar U-100 Insulin) Physical Exam 2 Vital Signs: Vital Signs: Last Vital Signs Temp 97.3 F 12/02/24 11:14 Pulse 110 H 12/02/24 11:30 Resp 18 12/02/24 11:30 BP 118/56 L 12/02/24 11:14 Pulse Ox 100 12/02/24 11:14 O2 Del Method Nasal Cannula 12/02/24 11:14 O2 Flow Rate 2 12/02/24 11:14 BMI result Body Mass Index 33.1 Resp: Other: rhonchi bases Results Labs 12/02/24 06:55 12/02/24 06:55 Labs: Short CBC 12/02/24 Range/Units 06:55 WBC 14.3 H (4.8-10.8) X10*3/uL Hgb 9.3 L (12.0-16.0) g/dl Hct 32.0 L (37.0-47.0) % Plt Count 275 (160-400) X10*3/uL BMP 12/02/24 06:55 Sodium 141 Potassium 4.7 Chloride 101 Carbon Dioxide 30 H BUN 29 H Creatinine 0.81 Calcium 8.5 Microbiology Microbiology Results: Microbiology 12/01/24 02:33 Blood - Venous Blood Culture - Preliminary No growth after 24 hours. 12/01/24 02:33 Blood - Venous Blood Culture - Preliminary No growth after 24 hours. Assessment and Plan (1) Acute on chronic respiratory failure with hypoxia and hypercapnia: Status: Acute (2) Acute exacerbation of chronic obstructive pulmonary disease: Status: Acute Plan COPD exacerbation/early pneumonia Patient with multiple drug allergies Would give po Augmentin 14 days outpatient.
== END 2024-12-02 15:14 | disposition home health service (06) | DRG 720 ==
LOC: HO.ED 22:27 → HO.EDOVER 23:13 → HO.IMC 12-01 12:30 → HO.EDOVER 12-01 13:07 → HO.IMC 12-01 14:07
PROVIDERS: Emergency Medicine; Internal Medicine Pulmonary Disease; Admitting Provider Physician Assistant; Emergency Provider Internal Medicine; PCP Nurse Practitioner Family; Visit Provider Student in an Organized Health Care Education/Training Program
DX: A41.9 Sepsis, unspecified organism (principal); J96.21 Acute and chronic respiratory failure with hypoxia; E87.21 Acute metabolic acidosis; I13.0 Hypertensive heart and chronic kidney disease with heart failure and stage 1 through stage 4 chronic kidney disease, or unspecified chronic kidney disease; J18.9 Pneumonia, unspecified organism; I50.32 Chronic diastolic (congestive) heart failure; E66.2 Morbid (severe) obesity with alveolar hypoventilation; Z99.81 Dependence on supplemental oxygen; J44.0 Chronic obstructive pulmonary disease with (acute) lower respiratory infection; J44.1 Chronic obstructive pulmonary disease with (acute) exacerbation; J98.11 Atelectasis; E11.65 Type 2 diabetes mellitus with hyperglycemia; F14.10 Cocaine abuse, uncomplicated; F17.210 Nicotine dependence, cigarettes, uncomplicated; Z71.6 Tobacco abuse counseling; J96.22 Acute and chronic respiratory failure with hypercapnia; Z71.3 Dietary counseling and surveillance; Z68.33 Body mass index [BMI] 33.0-33.9, adult; Z91.199 Patient's noncompliance with other medical treatment and regimen due to unspecified reason; Z20.822 Contact with and (suspected) exposure to COVID-19; Z79.82 Long term (current) use of aspirin; Z79.84 Long term (current) use of oral hypoglycemic drugs; Z79.899 Other long term (current) drug therapy
CPT/HCPCS: 0241U; 36415; 71045; 80048; 80053; 80307; 82803; 82947; 83036; 83605; 84484; 85025; 85610; 87040; 93005; 94640; 94660; 99285; J1650; J1938; J1956; J2270; J2405; J2543; J2919; J3370; S9485

== ENCOUNTER → 2024-11-30 20:41 | Outpatient (BNV) | payer OTHER, SELFPAY | PROVIDERS: Admitting Provider Physician Assistant; Emergency Provider Internal Medicine; Visit Provider Internal Medicine | DX: R00.0 Tachycardia, unspecified (principal) | CPT/HCPCS: 93010 ==

== ENCOUNTER → 2024-11-30 20:50 | Outpatient (BNV) | payer OTHER, SELFPAY | PROVIDERS: Emergency Provider Internal Medicine; Visit Provider Specialist | DX: R06.02 Shortness of breath (principal) | CPT/HCPCS: 71045 ==

== ENCOUNTER → 2024-11-30 22:57 | Outpatient (BNV) | payer OTHER, SELFPAY | PROVIDERS: Admitting Provider Physician Assistant; Emergency Provider Internal Medicine; Visit Provider Internal Medicine | DX: J44.1 Chronic obstructive pulmonary disease with (acute) exacerbation (principal); J96.21 Acute and chronic respiratory failure with hypoxia; J96.22 Acute and chronic respiratory failure with hypercapnia | CPT/HCPCS: 99222 ==

== ENCOUNTER → 2024-11-30 22:57 | Outpatient (BNV) | payer OTHER, SELFPAY | PROVIDERS: Admitting Provider Physician Assistant; Emergency Provider Internal Medicine; Visit Provider Physician Assistant | DX: J96.21 Acute and chronic respiratory failure with hypoxia (principal); J96.22 Acute and chronic respiratory failure with hypercapnia; A41.9 Sepsis, unspecified organism; J18.9 Pneumonia, unspecified organism; J44.1 Chronic obstructive pulmonary disease with (acute) exacerbation; E87.5 Hyperkalemia; R07.89 Other chest pain; F14.10 Cocaine abuse, uncomplicated; Z72.0 Tobacco use | CPT/HCPCS: 99223; 99232; 99239; 99499 ==

== ENCOUNTER → 2024-11-30 22:57 | Outpatient (BNV) | payer OTHER, SELFPAY | PROVIDERS: Admitting Provider Physician Assistant; Emergency Provider Internal Medicine; Visit Provider Internal Medicine Pulmonary Disease | DX: F14.10 Cocaine abuse, uncomplicated (principal); Z99.81 Dependence on supplemental oxygen; J44.1 Chronic obstructive pulmonary disease with (acute) exacerbation | CPT/HCPCS: 99222 ==

== ENCOUNTER → 2024-11-30 22:57 | Outpatient (BNV) | payer OTHER, SELFPAY | PROVIDERS: Admitting Provider Physician Assistant; Emergency Provider Internal Medicine; Visit Provider Nurse Practitioner Psychiatric/Mental Health | DX: F14.10 Cocaine abuse, uncomplicated (principal) | CPT/HCPCS: 99222; 99499 ==

== ENCOUNTER → 2024-12-04 10:46 | Outpatient (BNVA) | payer OTHER, SELFPAY | PROVIDERS: PCP Nurse Practitioner Family ==

== ENCOUNTER 2024-12-10 03:35 | Emergency (ER) | payer OTHER, SELFPAY ==
--- NOTE | 2024-12-10 | ECG_ITS ---
Test Reason : SOB Blood Pressure : */* mmHG Vent. Rate : 87 BPM Atrial Rate : 87 BPM P-R Int : 120 ms QRS Dur : 94 ms QT Int : 366 ms P-R-T Axes : 32 153 69 degrees QTcB Int : 440 ms Normal sinus rhythm Right axis deviation Right ventricular hypertrophy Abnormal ECG When compared with ECG of 30-Nov-2024 21:06, No significant change was found Referred By: Ok Griffith Electronically Signed By: PAUL VARGAS MD
--- NOTE | ~2024-12-10 | XR_ITS ---
CLINICAL HISTORY: chort of breath chest pain 1 view chest x-ray. Comparison: CR - XR CHEST 1V - 11/30/24 20:51 EDT Findings: The lungs are adequately expanded. No focal consolidation. No effusion or pneumothorax. Cardiac and mediastinal contours are within normal limits. No acute osseous abnormality Impression: No acute process. Interval improvement in the previous right lower lobe opacity. This document has been electronically signed by: Codey Menard MD on 12/10/2024 05:18:33
[2024-12-10 03:38] VITALS: BP 127/66; PULSE 89; O2SAT 100
[2024-12-10 03:42] VITALS: BP 123/77; PULSE 87; RESP 19; TEMP 37; O2SAT 98; BMI 35.5
--- NOTE | 2024-12-10 04:00 | ED_ITS ---
HPI - Chest Pain General Chief Complaint: Chest Pain Stated Complaint: CHEST PAIN/ SOB Time Seen by Provider: 12/10/24 03:56 Source: patient Mode of arrival: EMS Limitations: no limitations History of Present Illness ED Provider: HPI narrative: 54 yo f with a pmhx significant for COPD and chronic respiratory failure with hypoxia and hypercapnia on BiPAP at night, HENRY/OHS, HFpEF, diabetes mellitus, cocaine use disorder, and tobacco use disorder with frequent ED admissions for shortness a breath just discharged on 12/02/2024 has seen her junior loan processor and received but prednisone last night but has not taken it yet comes here for increased shortness breath when she took her BiPAP off on arrival patient was feeling much better without any treatment on 2 L nasal cannula saturating 98% speaking with mild distress , still wheezing Related Data Home Medications ?Medication ?Instructions ?Recorded ?Confirmed quetiapine 25 mg tablet (Seroquel) 25 mg PO BEDTIME hallucinations 11/12/24 12/01/24 quetiapine 25 mg tablet (Seroquel) 25 mg PO DAILY PRN racing thoughts 11/12/24 12/01/24 sertraline 100 mg tablet 100 mg PO DAILY 11/12/24 12/01/24 sertraline 25 mg tablet 25 mg PO DAILY 11/12/24 12/01/24 tiotropium 2.5 mcg-olodaterol 2.5 2 puff inhalation DAILY 11/26/24 12/01/24 mcg/actuation mist for inhalation (Stiolto Respimat) insulin glargine 100 unit/mL (3 10 unit subcut BEDTIME 12/01/24 12/01/24 mL) subcutaneous pen (Lantus Solostar U-100 Insulin) Previous Rx's ?Medication ?Instructions ?Recorded walker #1 ea 07/14/24 Rollator walker #1 ea 09/16/24 cane #1 ea 09/16/24 pulse oximeter #1 ea 09/16/24 FreeStyle Jemima 3 Girard #1 ea 09/22/24 (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,field service technician,cont) nicotine 21 mg/24 hr daily 1 patch transdermal Q24H #28 ea 10/01/24 transdermal patch tramadol 50 mg tablet 50 mg PO Q6H PRN pain #20 tabs 10/12/24 albuterol sulfate 2.5 mg/3 mL 2.5 mg (3 mL) inhalation Q4H PRN 11/09/24 (0.083 %) solution for nebulization Shortness Of Breath/Wheezing #180 mL albuterol sulfate 90 mcg/actuation 2 puff inhalation Q6H PRN for 11/09/24 aerosol inhaler (Ventolin HFA) wheezing #1 ea theophylline 400 mg 400 mg PO BID 90 days #180 tabs 11/09/24 tablet,extended release 24 hr acetaminophen 650 mg 650 mg PO Q12H PRN pain 30 days 11/12/24 tablet,extended release #60 tabs aspirin 81 mg tablet,delayed 81 mg PO DAILY 90 days #90 tabs 11/12/24 release atorvastatin 40 mg tablet 40 mg PO BEDTIME #90 tabs 11/12/24 blood sugar diagnostic (FreeStyle #100 ea 11/12/24 Lite Strips) 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 meter (FreeStyle #1 ea 11/12/24 Lite Meter kit) calcium 500 mg (as 1 tab PO DAILY #90 tabs 11/12/24 carbonate)-vitamin D3 10 mcg (400 unit) tablet esomeprazole magnesium 40 mg 40 mg PO DAILY@0630 #90 caps 11/12/24 capsule,delayed release fexofenadine 180 mg tablet 180 mg PO DAILY #30 tabs 11/12/24 (Elisabeth Allergy) furosemide 20 mg tablet 20 mg PO DAILY #90 tabs 11/12/24 gabapentin 800 mg tablet 800 mg PO QID Pain 30 days #120 11/12/24 tabs glipizide 5 mg tablet 5 mg PO DAILY #90 tabs 11/12/24 glucose 4 gram chewable tablet 16 g (4 x 4 gram) PO Q15M PRN 11/12/24 hypoglycemia #100 tabs ibuprofen 800 mg tablet 800 mg PO BID PRN Headache 30 days 11/12/24 #60 tabs ipratropium 0.5 mg-albuterol 3 mg 3 ml inhalation TID #180 mL 11/12/24 (2.5 mg base)/3 mL nebulization soln lancets 28 gauge (FreeStyle #100 ea 11/12/24 Lancets) losartan 50 mg tablet 50 mg PO DAILY #90 tabs 11/12/24 dextrose 40 % oral gel (Glucose 10 g PO Q15M PRN hypoglycemia #300 11/13/24 Gel) grams glucagon HCl 1 mg solution for 1 mg subcut Q20M PRN hypoglycemia 11/13/24 injection (Glucagon (HCl) #1 ea Emergency Kit) FreeStyle Jemima 3 Plus Sensor #2 ea 11/17/24 (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 sensor) naloxone 4 mg/actuation nasal 4 mg intranasal Q2M PRN opioid 11/27/24 spray (Narcan) overdose #2 ea pen needle, diabetic 31 gauge x #100 ea 11/30/2411/13 amoxicillin 875 mg-potassium 1 tab PO BID #10 tabs 12/02/24 clavulanate 125 mg tablet codeine 10 mg-guaifenesin 100 mg/5 10 ml PO Q4-6H PRN cough #473 mL 12/02/24 mL oral liquid topiramate 25 mg tablet 25 mg PO BID #98 tabs 12/02/24 tizanidine 4 mg tablet 4 mg PO Q12H muscle spasm 30 days 12/05/24 #60 tabs prednisone 10 mg tablet See Taper PO DIRECTED #30 tabs 12/08/24 Allergies Allergy/AdvReac Type Severity Reaction Status Date / Time doxycycline Allergy Severe Swelling Verified 12/10/24 03:49 varenicline [From CHANTIX] Allergy Severe ANAPHYLAXIS Verified 12/10/24 03:49 azithromycin Allergy Intermediate Rash Verified 12/10/24 03:49 barium sulfate Allergy Intermediate angioedema Verified 12/10/24 03:49 cetirizine Allergy Mild Rash Verified 12/10/24 03:49 famotidine Allergy Mild Rash Verified 12/10/24 03:49 linaclotide [Linzess] Allergy Mild Rash Verified 12/10/24 03:49 Review of Systems 2 Review of Systems: Yes all other systems are reviewed and are negative PMFSH Past Medical History Medical History Chronic lung disease BAHMAN (generalized anxiety disorder) COPD (chronic obstructive pulmonary disease) Cocaine use disorder Cocaine abuse GERD (gastroesophageal reflux disease) Constipation Non-insulin dependent type 2 diabetes mellitus HENRY (obstructive sleep apnea) Acute exacerbation of chronic obstructive airways disease Asthma with exacerbation Obesity hypoventilation syndrome Chronic lung disease Hypoxic respiratory failure Nocturnal hypoxemia Diabetes mellitus COPD exacerbation Crack cocaine use Hyperkalemia Metabolic acidosis Leukocytosis Chest discomfort Chronic renal failure, stage 2 (mild) SOB (shortness of breath) Asthma Smoker Rotator cuff tendonitis GERD (gastroesophageal reflux disease) Chronic idiopathic constipation Bustos's esophagus Depression High triglycerides Gastroparesis Carpal tunnel syndrome of right wrist Nausea & vomiting Hernia Acute and chronic respiratory failure, unspecified whether with hypoxia or hypercapnia HTN (hypertension) Obesity (BMI 30-39.9) Knee pain, bilateral Surgical History History of cholecystectomy (~1988) History of carpal tunnel release Hx of tubal ligation History of pubovaginal sling (~2015) History of umbilical hernia repair (~2001) Hx of section History of open reduction and internal fixation (ORIF) procedure History of esophagogastroduodenoscopy (EGD) Family History Family History Father Heart disease HENRY (obstructive sleep apnea) Family history of breast cancer Mother Asthma Emphysema, unspecified Bronchitis Smoker Alcoholism Bone marrow disease Maternal Grandmother Diabetes Social History Social History Household Members: Family Household Members Other:: 2 Housing: House Are you a primary child day care center worker to a significant other at home: No Do you presently have visiting nurse or other home services: Yes Unable to assess alcohol history related to: Unknown Alcohol intake: unknown Comment: Sleeping Patient Tobacco Use Status: Current everyday Tobacco user Tobacco use type: Cigarette Cigarette Packs Per Day: 0.5 Cigarettes Per Day: 10.0 Years Smoked: 40 e-Cigarette/Vaping Use: Currently Using Second Hand Smoke Exposure: Yes Substance Use Type: Crack/Cocaine Advance Directives: Yes Advance Directives on File: Yes Advance Directives Date on File: 12/19/23 service: No Current occupational status: disabled 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 Physical Exam 2 Vital Signs: Vital Signs: Last Vital Signs Temp 98.0 F 12/10/24 06:00 Pulse 88 12/10/24 06:00 Resp 16 12/10/24 06:00 BP 128/63 12/10/24 06:00 Pulse Ox 93 12/10/24 06:00 O2 Del Method Nasal Cannula 12/10/24 06:00 O2 Flow Rate 2 12/10/24 06:00 Oxygen Flow Rate 2 12/10/24 03:42 BMI result Body Mass Index 35.5 Appearance: Alert. Oriented X3. Moderate respiratory distress Eyes: No pallor or icterus ENT: Pharynx normal. Oral Mucosa moist Neck: Normal inspection. Neck supple. CVS: Normal heart rate and rhythm. Pulses normal. Respiratory: Moderate respiratory distress. Equal air entry bilateral, bilateral wheezing Abdomen: Soft and nontender. Bowel sounds are present, no mass palpable, no CVA tenderness Skin: Skin warm and dry. Normal skin color. Normal skin turgor. Extremities: No lower extremity edema. No calf tenderness Neuro: Oriented X 3. No motor deficit. No sensory deficit.No cerebellar signs , cranial nerves II-XII intact Medications Administered Discontinued Medications Generic Name Dose Route Start Last Admin Trade Name Freq PRN Reason Stop Dose Admin Albuterol Sulfate 7.5 mg/ 10 mg 12/10/24 04:04 12/10/24 04:09 Albuterol Sulfate 2.5 mg INHALE 12/10/24 04:05 10 mg ONCE ONE Administration Dexamethasone 10 mg 12/10/24 04:11 12/10/24 04:29 Dexamethasone 2 Mg Tablet PO 12/10/24 04:12 10 mg ONCE ONE Administration Oxycodone HCl 10 mg 12/10/24 04:11 12/10/24 04:29 Oxycodone Hcl Immed Release 5 Mg Tablet PO 12/10/24 04:12 10 mg ONCE ONE Administration Medical Decision Making Medical Decision Making [facility] Narrative: 54 yo f with a pmhx significant for COPD and chronic respiratory failure with hypoxia and hypercapnia on BiPAP at night, HENRY/OHS, HFpEF, diabetes mellitus, cocaine use disorder, and tobacco use disorder comes here for increased shortness a breath after she removed BiPAP after arrival patient has been saturating above 90% on 2 L received nebulizing treatment and Decadron IV patient does have prednisone at home chest x-ray negative for infiltrate patient does have nebulizer oxygen and BiPAP at home no signs of significant infection with discharge patient home advised to follow up with her junior loan processor and to take tapering dose of prednisone as prescribed Differential Diagnosis Differential Diagnoses: The differential diagnosis associated with the presentation includes Admission/Observation Consideration of admission/observation: Escalation of care including admission/observation considered Lab Data [facility] Lab Attestation statement: I reviewed the patient's lab results. 12/10/24 04:07 12/10/24 04:07 Labs: Lab Results 12/10/24 12/10/24 Range/Units 04:06 04:07 WBC 18.9 H (4.8-10.8) X10*3/uL RBC 4.94 (4.20-5.50) X10*6/uL Hgb 10.8 L (12.0-16.0) g/dl Hct 36.8 L (37.0-47.0) % MCV 74.5 L (80.0-98.0) fL MCH 21.9 L (27.0-33.0) pg MCHC 29.3 L (31.0-35.0) g/dl RDW 17.4 H (11.0-16.0) % Plt Count 366 D (160-400) X10*3/uL MPV 8.7 L (9.4-12.3) fL Immature Gran % (Auto) 0.6 H (0.0-0.4) % Neut % (Auto) 91.1 H (45-73) % Lymph % (Auto) 4.7 L (20-40) % [place] % (Auto) 3.1 (2-11) % Eos % (Auto) 0.4 (0-4) % Baso % (Auto) 0.1 (0-2) % Lymph # (Auto) 0.9 L (1.2-4.9) X10*3/uL [place] # (Auto) 0.6 (0.1-1.2) X10*3/uL Eos # (Auto) 0.1 (0.0-0.4) X10*3/uL Baso # (Auto) 0.0 (0.0-0.2) X10*3/uL Abs Immat Gran (auto) 0.12 H (0.00-0.03) X10*3/uL Absolute Neuts (auto) 17.2 H (2.0-8.3) x10*3/uL Absolute Nucleated RBC 0.000 (0.0-0.012) X10*3/uL Nucleated RBC % (auto) 0.0 (0.0-0.2) /100WBC Smear Tech's Comments VERIFIED Sodium 136 (135-145) mmol/L Potassium 4.2 (3.3-5.1) mmol/L Chloride 103 (96-108) mmol/L Carbon Dioxide 24 (22-29) mmol/L Anion Gap 13 (12-20) BUN 21 H (9-16) mg/dL Creatinine 0.72 (0.5-1.4) mg/dL Estim Creat Clear Calc 72.9 Estimated GFR > 60 Random Glucose 263 H (60-115) mg/dL Calcium 8.7 (8.4-10.2) mg/dL Magnesium 1.9 (1.6-2.6) mg/dL Total Bilirubin 0.1 (0.0-1.0) mg/dL AST 12 (5-31) U/L ALT 17 (0-31) U/L Alkaline Phosphatase 90 (39-117) U/L Troponin I High Sens 18.7 H (<3.5-17.0) ng/L B-Natriuretic Peptide 50 (<100) pg/mL Total Protein 6.2 L (6.5-8.0) g/dL Albumin 4.0 (3.5-5.0) g/dL Influenza Type A (PCR) NEGATIVE (Negative) Influenza Type B (PCR) NEGATIVE (Negative) RSV RNA Qual (PCR) NEGATIVE (Negative) SARS-CoV-2 RNA (RT-PCR) NEGATIVE (Negative) Discharge Plan Discharge Clinical Impression: COPD with acute exacerbation Patient Disposition: Home, Self-Care Instructions: COPD (Chronic Obstructive Pulmonary Disease) (ED), Chronic Respiratory Failure (DC) Additional Instructions: Stop smoking Continue inhaler and nebulizer treatment as advised Take Prednisone as prescribed by your junior loan processor in tapering doses Follow up with your junior loan processor Prescriptions: No Action (DME) cane Device See Rx Instructions .Route Qty: 1 0RF Rx Instructions: Standard cane (DME) Rollator walker See Rx Instructions .Route .MEDSUPPLY Qty: 1 0RF Rx Instructions: As directed (DME) pulse oximeter See Rx Instructions .Route .MEDSUPPLY Qty: 1 0RF Rx Instructions: As directed (DME) FreeStyle Jemima 3 Girard Misc See Rx Instructions .Route Qty: 1 0RF Rx Instructions: To monitor blood sugar 4 times per day albuterol sulfate 2.5 mg /3 mL (0.083 %) solution for nebulization 2.5 mg inhalation Q4H PRN (Reason: Shortness Of Breath/Wheezing) Qty: 180 6RF theophylline 400 mg tablet extended release 24 hr 400 mg PO BID 90 Days Qty: 180 4RF albuterol sulfate [Ventolin HFA] 90 mcg/actuation HFA aerosol inhaler 2 puff inhalation Q6H PRN (Reason: for wheezing) Qty: 1 6RF acetaminophen 650 mg tablet extended release 650 mg PO Q12H PRN (Reason: pain) 30 Days Qty: 60 0RF aspirin 81 mg tablet,delayed release (DR/EC) 81 mg PO DAILY 90 Days Qty: 90 1RF atorvastatin 40 mg tablet 40 mg PO BEDTIME Qty: 90 0RF (DME) FreeStyle Lite Strips Strip See Rx Instructions .ROUTE .MEDSUPPLY Qty: 100 1RF Rx Instructions: Use to check blood sugar daily or if symptomatic hypo/hypergylcemia calcium carbonate-vitamin D3 500 mg-10 mcg (400 unit) tablet 1 tab PO DAILY Qty: 90 0RF (DME) 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 meter [FreeStyle Lite Meter] Kit See Rx Instructions .ROUTE .MEDSUPPLY Qty: 1 0RF Rx Instructions: Use to check blood sugar daily or if symptomatic for hypo/hyperglycemia esomeprazole magnesium 40 mg capsule,delayed release(DR/EC) 40 mg PO DAILY@0630 Qty: 90 1RF fexofenadine [Elisabeth Allergy] 180 mg tablet 180 mg PO DAILY Qty: 30 3RF furosemide 20 mg tablet 20 mg PO DAILY Qty: 90 3RF gabapentin 800 mg tablet 800 mg PO QID 30 Days Qty: 120 1RF glipizide 5 mg tablet 5 mg PO DAILY Qty: 90 1RF glucose 4 gram tablet,chewable 16 g PO Q15M MDD 8 tabs PRN (Reason: hypoglycemia) Qty: 100 1RF Rx Instructions: until symptoms of low blood sugar are controlled ibuprofen 800 mg tablet 800 mg PO BID PRN (Reason: Headache) 30 Days Qty: 60 0RF Rx Instructions: please use sparingly due to diabetes ipratropium-albuterol 0.5 mg-3 mg(2.5 mg base)/3 mL solution for nebulization 3 ml INHALATION TID Qty: 180 0RF (DME) lancets [FreeStyle Lancets] 28 gauge misc See Rx Instructions .ROUTE .MEDSUPPLY Qty: 100 1RF Rx Instructions: Use to check blood sugar daily or if symptomatic hypo/hypergylcemia losartan 50 mg tablet 50 mg PO DAILY Qty: 90 0RF (DME) FreeStyle Jemima 3 Plus Sensor Device See Rx Instructions .Route Qty: 2 5RF Rx Instructions: To monitor blood sugars 4 times per day. Change sensor every 15 days (DME) pen needle, diabetic 31 gauge x 5/16 needle See Rx Instructions .Route Qty: 100 0RF Rx Instructions: Use to inject insulin once a day tizanidine 4 mg tablet 4 mg PO Q12H 30 Days Qty: 60 0RF Rx Instructions: do not take concurrently with famotidine prednisone 10 mg tablet See Taper PO DIRECTED Qty: 30 0RF Taper: Prednisone 40 mg daily for 5 Days and 0 Hour 30 mg daily for 5 Days and 0 Hour 20 mg daily for 5 Days and 0 Hour 10 mg daily for 5 Days and 0 Hour Rx Instructions: see taper instructions (DME) walker Misc See Rx Instructions .Route Qty: 1 0RF Rx Instructions: As directed sertraline 25 mg tablet 25 mg PO DAILY Rx Instructions: Taken with 100mg tab for TDD of 125mg. sertraline 100 mg tablet 100 mg PO DAILY Rx Instructions: TAKE WITH 25MG FOR TOTAL OF 125MG quetiapine [Seroquel] 25 mg tablet 25 mg PO BEDTIME quetiapine [Seroquel] 25 mg tablet 25 mg PO DAILY PRN (Reason: racing thoughts) dextrose [Glucose Gel] 40 % gel 10 g PO Q15M PRN (Reason: hypoglycemia) Qty: 300 0RF Rx Instructions: until symptoms of low blood sugar are controlled glucagon HCl [Glucagon (HCl) Emergency Kit] 1 mg recon soln 1 mg subcut Q20M PRN (Reason: hypoglycemia) Qty: 1 0RF Rx Instructions: until target blood sugar attained Stiolto Respimat 2.5-2.5 mcg/actuation mist 2 puff inhalation DAILY naloxone [Narcan] 4 mg/actuation spray,non-aerosol 4 mg intranasal Q2M PRN (Reason: opioid overdose) Qty: 2 0RF Rx Instructions: spray 1 dose into ONE nostril; alternate nostrils w each dose until help arrives insulin glargine [Lantus Solostar U-100 Insulin] 100 unit/mL (3 mL) insulin pen 10 unit subcut BEDTIME topiramate 25 mg tablet 25 mg PO BID Qty: 98 0RF Rx Instructions: take one tab twice daily for one week, then increase to 2 tabs twice daily amoxicillin-pot clavulanate 875-125 mg tablet 1 tab PO BID Qty: 10 0RF codeine-guaifenesin 10-100 mg/5 mL liquid 10 ml PO Q4-6H PRN (Reason: cough) Qty: 473 0RF nicotine 21 mg/24 hr patch 24 hour 1 patch transdermal Q24H Qty: 28 0RF tramadol 50 mg tablet 50 mg PO Q6H PRN (Reason: pain) Qty: 20 0RF Print Language: [place] Citizen
[2024-12-10] MEDS: Albuterol Sulfate 7.5 MG, Albuterol Sulfate (0.083%) 2.5 MG 10 MG INHALE (04:09)
[2024-12-10 04:10] VITALS: PULSE 88; RESP 18; O2SAT 98
[2024-12-10 04:12] LABS: Basophils Percent Auto 0.1 % (0-2); Eosinophils Absolute Auto 0.1 X10*3/uL (0.0-0.4); Eosinophils Percent Auto 0.4 % (0-4); Hematocrit 36.8 % (37.0-47.0); Hemoglobin 10.8 g/dl (12.0-16.0); Imm Gran Abs Auto 0.12 X10*3/uL (0.00-0.03); Imm Gran Pct Auto 0.6 % (0.0-0.4); Lymphocytes Absolute Auto 0.9 X10*3/uL (1.2-4.9); Lymphocytes Percent Auto 4.7 % (20-40); Mean Corpuscular HGB Conc 29.3 g/dl (31.0-35.0); Mean Corpuscular Hemoglobin 21.9 pg (27.0-33.0); Mean Corpuscular Volume 74.5 fL (80.0-98.0); Mean Platelet Volume 8.7 fL (9.4-12.3); Monocytes Absolute Auto 0.6 X10*3/uL (0.1-1.2); Monocytes Percent Auto 3.1 % (2-11); Neutrophils Absolute Auto 17.2 x10*3/uL (2.0-8.3); Neutrophils Percent Auto 91.1 % (45-73); Platelet Count 366 X10*3/uL (160-400); Red Blood Count 4.94 X10*6/uL (4.20-5.50); Red Cell Distribution Width 17.4 % (11.0-16.0); SCAN SMEAR FLAG 1; White Blood Count 18.9 X10*3/uL (4.8-10.8)
[2024-12-10 04:14] LABS: MANUAL DIFF FLAG SCAN
[2024-12-10 04:29] LABS: SLIDE REVIEW VERIFIED
[2024-12-10] MEDS: dexAMETHasone 2 MG TABLET 10 MG PO (04:29)
[2024-12-10] MEDS: oxyCODONE HCl Immed Release 5 MG TABLET 10 MG PO (04:29)
[2024-12-10 04:30] LABS: Alanine Aminotransferase 17 U/L (0-31); Alkaline Phosphatase 90 U/L (39-117); Anion Gap 13 (12-20); Aspartate Amino Transferase 12 U/L (5-31); Bilirubin Total 0.1 mg/dL (0.0-1.0); Blood Urea Nitrogen 21 mg/dL (9-16); Calcium 8.7 mg/dL (8.4-10.2); Carbon Dioxide 24 mmol/L (22-29); Chloride 103 mmol/L (96-108); Creatinine Clr Calc Pharmacy 72.9; Estimated Glomerular Filt Rate > 60; Glucose Random 263 mg/dL (60-115); Magnesium 1.9 mg/dL (1.6-2.6); Potassium 4.2 mmol/L (3.3-5.1); Sodium 136 mmol/L (135-145); Total Protein 6.2 g/dL (6.5-8.0)
[2024-12-10 04:31] VITALS: BP 123/63; PULSE 89; RESP 18; O2SAT 98
[2024-12-10 04:33] LABS: B Type Natriuretic Peptide 50 pg/mL (<100)
[2024-12-10 04:37] LABS: Troponin-I High Sensitivity 18.7 ng/L (<3.5-17.0)
[2024-12-10 04:48] LABS: Influenza A PCR NEGATIVE (Negative); Influenza B PCR NEGATIVE (Negative); Resp Syncy Virus RNA Qual PCR NEGATIVE (Negative); SARS COV2 PCR INHOUSE NEGATIVE (Negative)
--- NOTE | 2024-12-10 05:28 | PC.NURSE ---
pt resting comfortably with eyes closed, VSS stable. 97% on 2L
[2024-12-10 06:00] VITALS: BP 128/63; PULSE 88; RESP 16; TEMP 36.7; O2SAT 93
--- NOTE | 2024-12-10 07:23 | PC.NURSE ---
This RN assumed care of patient @ 0700. Patient denies pain, SOB. VSS and up to date. Patient being discharged currently waiting for ambulance to pick her up.
[2024-12-10 07:52] VITALS: BP 128/63; PULSE 88; RESP 16; TEMP 36.7; O2SAT 93
== END 2024-12-10 08:28 | disposition home or self-care (01) ==
PROVIDERS: Emergency Provider Internal Medicine; PCP Nurse Practitioner Family
DX: J44.1 Chronic obstructive pulmonary disease with (acute) exacerbation (principal); R07.89 Other chest pain; R06.02 Shortness of breath; F17.210 Nicotine dependence, cigarettes, uncomplicated; Z03.818 Encounter for observation for suspected exposure to other biological agents ruled out; Z79.899 Other long term (current) drug therapy
CPT/HCPCS: 0241U; 36415; 71045; 80053; 83735; 83880; 84484; 85025; 93005; 94640; 99283; 99285; J8540

== ENCOUNTER → 2024-12-10 03:41 | Outpatient (BNV) | payer OTHER, SELFPAY | PROVIDERS: Emergency Provider Internal Medicine; PCP Nurse Practitioner Family; Visit Provider Internal Medicine Cardiovascular Disease | DX: I51.7 Cardiomegaly (principal) | CPT/HCPCS: 93010 ==

== ENCOUNTER → 2024-12-10 04:04 | Outpatient (BNV) | payer OTHER, SELFPAY | PROVIDERS: Emergency Provider Internal Medicine; PCP Nurse Practitioner Family; Visit Provider Radiology Vascular & Interventional Radiology | DX: R07.9 Chest pain, unspecified (principal) | CPT/HCPCS: 71045 ==

== ENCOUNTER 2024-12-18 07:56 | Inpatient (IN) | payer OTHER, SELFPAY ==
[2024-12-18] VITALS (11 sets, daily range): BP systolic 77–131; BP diastolic 38–93; PULSE 97–113; RESP 12–23; TEMP 36–36.9; O2SAT 92–99; BMI 28.3
--- NOTE | ~2024-12-18 | XR_ITS ---
EXAMINATION: XR CHEST CLINICAL INFORMATION: chest pain COMPARISON: December 10, 2024. TECHNIQUE: Frontal view of the chest was obtained. FINDINGS: Prominence of the interstitial markings in the perihilar regions. No consolidation pleural effusion or pneumothorax. Cardiomediastinal silhouette size is mildly prominent. Calcified plaque thoracic aorta. Multilevel thoracic spondylosis. Degenerative changes in the acromioclavicular joints. XR/XR chest 1V IMPRESSION: Mild interstitial lung edema in the correct clinical settings. Electronically signed by: Sharath Luke MD 12/18/2024 08:53 AM EDT
--- NOTE | 2024-12-18 08:20 | ECG_ITS ---
Test Reason : chest pain Blood Pressure : */* mmHG Vent. Rate : 114 BPM Atrial Rate : 114 BPM P-R Int : 124 ms QRS Dur : 90 ms QT Int : 334 ms P-R-T Axes : 57 153 56 degrees QTcB Int : 460 ms Sinus tachycardia with Premature supraventricular complexes Right axis deviation Possible Right ventricular hypertrophy Abnormal ECG When compared with ECG of 10-Dec-2024 03:41, Premature supraventricular complexes are now Present Referred By: Generic ED Physician Electronically Signed By: Dallin [place]
--- NOTE | 2024-12-18 08:21 | PC.NURSE ---
pt was placed back on 2lpm o2, her ems iv is very positional.
[2024-12-18 09:06] LABS: INTERNATIONAL NORM RATIO 0.9 (0.9-1.1); Prothrombin Time 10.3 SEC (10.9-12.4)
--- NOTE | 2024-12-18 09:08 | ED_ITS ---
HPI - SOB/Dyspnea General Chief Complaint: Dyspnea Stated Complaint: chest pain Time Seen by Provider: 12/18/24 08:41 Source: patient and EMS Mode of arrival: EMS Limitations: no limitations History of Present Illness ED Provider: HPI Narrative: 54-year-old woman, oxygen dependent, history of COPD, emphysema, frequent ED visits and hospitalizations, states woke up today with midsternal chest pain, reports dyspnea, unsure how much other acute much of it is chronic, she reports using her BiPAP at home, AMS gave her albuterol, Solu-Medrol, aspirin, her systolic blood pressure low. Patient states she has not been drinking or eating because she has no appetite, continues to smoke. Noted at bedside that patient's blood pressure is not 77/38, her blood pressure was 92/70 with a MAP of 77 Pertinent past history: COPD Related Data Home Medications ?Medication ?Instructions ?Recorded ?Confirmed quetiapine 25 mg tablet (Seroquel) 25 mg PO BEDTIME burris llucinations 11/12/24 12/01/24 quetiapine 25 mg tablet (Seroquel) 25 mg PO DAILY PRN racing thoughts 11/12/24 12/01/24 sertraline 100 mg tablet 100 mg PO DAILY 11/12/2409/22 sertraline 25 mg tablet 25 mg PO DAILY 11/12/2409/22 tiotropium 2.5 mcg-olodaterol 2.5 2 puff inhalation DA PHIL 11/26/24 12/01/24 mcg/actuation mist for inhalation (Stiolto Respimat) insulin glargine 100 unit/mL (3 10 unit subcut BEDTIME 12/01/24 12/01/24 mL) subcutaneous pen (Lantus Solostar U-100 Insulin) Previous Rx's ?Medication ?Instructions ?Recorded walker #1 ea 07/14/24 Rollator walker #1 ea 09/16/24 cane #1 ea 09/16/24 pulse oximeter #1 ea 09/16/24 FreeStyle Jemima 3 Doswell #1 ea 09/22/24 (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,tax technician,cont) nicotine 21 mg/24 hr daily 1 patch transdermal Q24H #2 8 ea 10/01/24 transdermal patch tramadol 50 mg tablet 50 mg PO Q6H PRN pain #20 ta bs 04/14/25 albuterol sulfate 2.5 mg/3 mL 2.5 mg (3 mL) inhalation Q4H PRN 11/09/24 (0.083 %) solution for nebulization Shortness Of Breat h/Wheezing #180 mL albuterol sulfate 90 mcg/actuation 2 puff inhalation Q 6H PRN for 11/09/24 aerosol inhaler (Ventolin HFA) wheezing #1 ea theophylline 400 mg 400 mg PO BID 90 days #180 t abs 11/09/24 tablet,extended release 24 hr acetaminophen 650 mg 650 mg PO Q12H PRN pain 30 d ays 11/12/24 tablet,extended release #60 tabs aspirin 81 mg tablet,delayed 81 mg PO DAILY 90 days #9 0 tabs 11/12/24 release atorvastatin 40 mg tablet 40 mg PO BEDTIME #90 tabs blood sugar diagnostic (FreeStyle #100 ea 11/12/24 Lite Strips) 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 meter (FreeStyle #1 ea 11/12/24 Lite Meter kit) calcium 500 mg (as 1 tab PO DAILY #90 tabs 10/29 11/22 carbonate)-vitamin D3 10 mcg (400 unit) tablet esomeprazole magnesium 40 mg 40 mg PO DAILY@0630 #90 c aps 11/12/24 capsule,delayed release fexofenadine 180 mg tablet 180 mg PO DAILY #30 tabs (Elisabeth Allergy) furosemide 20 mg tablet 20 mg PO DAILY #90 tabs 10/29 11/22 gabapentin 800 mg tablet 800 mg PO QID Pain 30 days # 120 11/12/24 tabs glipizide 5 mg tablet 5 mg PO DAILY #90 tabs 11/12 glucose 4 gram chewable tablet 16 g (4 x 4 gram) PO Q1 5M PRN 11/12/24 hypoglycemia #100 tabs ibuprofen 800 mg tablet 800 mg PO BID PRN Headache 3 0 days 11/12/24 #60 tabs ipratropium 0.5 mg-albuterol 3 mg 3 ml inhalation TID #180 mL 11/12/24 (2.5 mg base)/3 mL nebulization soln lancets 28 gauge (FreeStyle #100 ea 11/12/24 Lancets) losartan 50 mg tablet 50 mg PO DAILY #90 tabs 10/29 11/22 dextrose 40 % oral gel (Glucose 10 g PO Q15M PRN hypog lycemia #300 11/13/24 Gel) grams glucagon HCl 1 mg solution for 1 mg subcut Q20M PRN hy poglycemia 11/13/24 injection (Glucagon (HCl) #1 ea Emergency Kit) FreeStyle Jemima 3 Plus Sensor #2 ea 11/17/24 (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 sensor) naloxone 4 mg/actuation nasal 4 mg intranasal Q2M PRN opioid 11/27/24 spray (Narcan) overdose #2 ea pen needle, diabetic 31 gauge x #100 ea 11/30/2411/13 amoxicillin 875 mg-potassium 1 tab PO BID #10 tabs 10/23 clavulanate 125 mg tablet codeine 10 mg-guaifenesin 100 mg/5 10 ml PO Q4-6H PRN cough #473 mL 12/02/24 mL oral liquid topiramate 25 mg tablet 25 mg PO BID #98 tabs tizanidine 4 mg tablet 4 mg PO Q12H muscle spasm 30 days 12/05/24 #60 tabs prednisone 10 mg tablet See Taper PO DIRECTED #30 tabs 12/08/24 Allergies Allergy/AdvReac Type Severity Reaction Status Date / Time doxycycline Allergy Severe Swelling Verified 12/18/24 08:19 varenicline (From CHANTIX) Allergy Severe ANAPHYLAXIS Verified 12/18/24 08:19 azithromycin Allergy Intermediate Rash Verified 12/18/24 08:19 barium sulfate Allergy Intermediate angioedema Verified 12/18/24 08:19 cetirizine Allergy Mild Rash Verified 12/18/24 08:19 famotidine Allergy Mild Rash Verified 12/18/24 08:19 linaclotide (Linzess) Allergy Mild Rash Verified 12/18/24 08:19 Review of Systems 2 Constitutional: Constitutional: Reports as per [facility] Past Medical History Medical History Chronic lung disease BAHMAN (generalized anxiety disorder) COPD (chronic obstructive pulmonary disease) Cocaine use disorder Cocaine abuse GERD (gastroesophageal reflux disease) Constipation Non-insulin dependent type 2 diabetes mellitus HENRY (obstructive sleep apnea) Acute exacerbation of chronic obstructive airways disease Asthma with exacerbation Obesity hypoventilation syndrome Chronic lung disease Hypoxic respiratory failure Nocturnal hypoxemia Diabetes mellitus COPD exacerbation Crack cocaine use Hyperkalemia Metabolic acidosis Leukocytosis Chest discomfort Chronic renal failure, stage 2 (mild) SOB (shortness of breath) Asthma Smoker Rotator cuff tendonitis GERD (gastroesophageal reflux disease) Chronic idiopathic constipation Bustos's esophagus Depression High triglycerides Gastroparesis Carpal tunnel syndrome of right wrist Nausea & vomiting Hernia Acute and chronic respiratory failure, unspecified whether with hypoxia or hypercapnia HTN (hypertension) Obesity (BMI 30-39.9) Knee pain, bilateral Surgical History History of cholecystectomy (~1988) History of carpal tunnel release Hx of tubal ligation History of pubovaginal sling (~2015) History of umbilical hernia repair (~2001) Hx of section History of open reduction and internal fixation (ORIF) procedure History of esophagogastroduodenoscopy (EGD) Family History Family History Father Heart disease HENRY (obstructive sleep apnea) Family history of breast cancer Mother Asthma Emphysema, unspecified Bronchitis Smoker Alcoholism Bone marrow disease Maternal Grandmother Diabetes Social History Social History Household Members: Family Household Members Other:: 2 Housing: House Are you a primary outdoor emergency care technician to a significant other at home: No Do you presently have visiting nurse or other home services: Yes Unable to assess alcohol history related to: Unknown Alcohol intake: unknown Comment: Sleeping Patient Tobacco Use Status: Current everyday Tobacco user Tobacco use type: Cigarette Cigarette Packs Per Day: 0.5 Cigarettes Per Day: 10.0 Years Smoked: 40 e-Cigarette/Vaping Use: Currently Using Second Hand Smoke Exposure: Yes Substance Use Type: Crack/Cocaine Advance Directives: Yes Advance Directives on File: Yes Advance Directives Date on File: 12/19/23 service: No Current occupational status: disabled 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 Physical Exam 2 Vital Signs: Vital Signs: Last Vital Signs Temp 97.9 F 12/18/24 09:50 Pulse 100 12/18/24 10:01 Resp 18 12/18/24 10:01 BP 116/67 12/18/24 10:01 Pulse Ox 95 12/18/24 10:01 O2 Del Method Nasal Cannula 12/18/24 10:01 O2 Flow Rate 2 12/18/24 09:50 BMI result Body Mass Index 28.3 Const: Other: * Gen: ?Pickwickian, appears older than stated age * HEENT: No scleral icterus, slightly dry oral mucosaD * CV: Regular pulse radial ulnar pulses +2 * Resp: ?Somewhat dyspneic no appreciate or rhonchi rales or wheezing, * Abd: ?Bowel sounds are present, no tenderness no rebound no rigidity * MSK: No lower extremity edema noted * Skin: Warm, dry, intact, * Neuro: ?Alert and oriented x3, moving upper and lower extremities symmetrically, slightly lethargic when not engaged in conversation Medications Administered Generic Name Dose Route Start Last Admin Trade Name Freq PRN Reason Stop Dose Admin Sodium Chloride 500 mls @ 250 mls/hr 12/18/24 09:15 12/18/24 09:49 Ns IVCONT 12/18/24 11:14 250 mls/hr .Q2H [place] Administration Discontinued Medications Generic Name Dose Route Start Last Admin Trade Name Freq PRN Reason Stop Dose Admin Albuterol Sulfate 2.5 mg/ 0 mg 12/18/24 09:33 12/18/24 09:38 Albuterol/Ipratropium 3 ml INHALE 12/18/24 09:34 5 dose ONCE ONE Administration Medical Decision Making Medical Decision Making [facility] Narrative: COPD and chronic respiratory failure with hypoxia and hypercapnia on BiPAP at night, HENRY/OHS, HFpEF, diabetes mellitus, cocaine use disorder, and tobacco use disorder comes here for increased shortness a breath and chest pain, ECG without any changes to suspect underlying ACS, she is slightly lethargic when not being actively engaged in conversation this may signify either medication effect, hypercapnia, her blood pressure was low in the field, here it is still somewhat low but mean arterial pressure is preserved, we will give gentle fluids, bedside ultrasound without pericardial effusion or RV strain, IVC was collapsible, and no obvious B-lines, chest x-ray with increased pulmonary vascular markings which is similar to prior, cardiomegaly, no consolidation to suspect pneumonia, we will give gentle fluids, nebulizer treatment, we will continue monitoring, she does not improve we will admit otherwise may discharge home, unfortunately patient is not interested in lifestyle modification, or rehab facility where she could be better managed and hopefully decrease recurrent ER visits 10:40 patient re-evaluated, she received nebulizer treatment, she is breathing better, she is sitting up, I have discussed the workup with her, I am reassured by overall her clinical improvement and she has not been hypotensive I did give her fluids, she wanted to be discharged however when she was going to the commode she just gets extremely labored and oxygen drops and she can only be really sedentary. So I will be admitting her Differential Diagnosis Differential Diagnoses: The differential diagnosis associated with the presentation includes CHF, COPD exacerbation, pneumonia, pneumothorax, ACS, PE, Admission/Observation Consideration of admission/observation: Escalation of care including admission/observation considered Lab Data MDM Lab Attestation statement: I reviewed the patient's lab results. (As far as her labs, leukocytosis is due to smoking and frequent steroid use, not much changed from prior, and she also saw always has a troponin leak this is her baseline) 12/18/24 09:11 12/18/24 08:51 Labs: Lab Results 12/18/24 12/18/24 12/18/24 Range/Units 08:51 09:10 09:11 WBC 15.4 H (4.8-10.8) X10*3/uL RBC 4.68 (4.20-5.50) X10*6/uL Hgb 10.1 L (12.0-16.0) g/dl Hct 34.7 L (37.0-47.0) % MCV 74.1 L (80.0-98.0) fL MCH 21.6 L (27.0-33.0) pg MCHC 29.1 L (31.0-35.0) g/dl RDW 17.5 H (11.0-16.0) % Plt Count 319 (160-400) X10*3/uL MPV 9.1 L (9.4-12.3) fL Immature Gran % (Auto) 0.8 H (0.0-0.4) % Neut % (Auto) 80.7 H (45-73) % Lymph % (Auto) 13.7 L (20-40) % [place] % (Auto) 4.2 (2-11) % Eos % (Auto) 0.5 (0-4) % Baso % (Auto) 0.1 (0-2) % Lymph # (Auto) 2.1 (1.2-4.9) X10*3/uL [place] # (Auto) 0.6 (0.1-1.2) X10*3/uL Eos # (Auto) 0.1 (0.0-0.4) X10*3/uL Baso # (Auto) 0.0 (0.0-0.2) X10*3/uL Abs Immat Gran (auto) 0.13 H (0.00-0.03) X10*3/uL Absolute Neuts (auto) 12.4 H (2.0-8.3) x10*3/uL Absolute Nucleated RBC 0.000 (0.0-0.012) X10*3/uL Nucleated RBC % (auto) 0.0 (0.0-0.2) /100WBC PT 10.3 L (10.9-12.4) SEC INR 0.9 (0.9-1.1) VBG pH 7.34 (7.32-7.43) VBG pCO2 57 mmHg VBG pO2 56 mmHg VBG HCO3 31 H (22-26) mmol/L VBG O2 Saturation 83.0 % VBG Base Excess 4.6 mmol/L Sodium 141 (135-145) mmol/L Potassium 3.4 (3.3-5.1) mmol/L Chloride 105 (96-108) mmol/L Carbon Dioxide 27 (22-29) mmol/L Anion Gap 12 (12-20) BUN 15 (9-16) mg/dL Creatinine 0.83 (0.5-1.4) mg/dL Estim Creat Clear Calc 75.0 Estimated GFR > 60 Random Glucose 144 H (60-115) mg/dL Calcium 8.9 (8.4-10.2) mg/dL Total Bilirubin 0.1 (0.0-1.0) mg/dL Direct Bilirubin < 0.2 (0.0-0.5) mg/dL AST 18 (5-31) U/L ALT 16 (0-31) U/L Alkaline Phosphatase 68 (39-117) U/L Troponin I High Sens 21.7 H (<3.5-17.0) ng/L Total Protein 5.8 L (6.5-8.0) g/dL Albumin 3.6 (3.5-5.0) g/dL Urine Color Urine Appearance Urine pH (5.0-9.0) Ur Specific [place] (1.005-1.025) Urine Protein (Neg-Trace) mg/dL Urine Glucose (UA) (Negative) mg/dL Urine Ketones (Negative) mg/dL Urine Blood (Negative) Urine Nitrite (Negative) Ur Leukocyte Esterase (Negative) Urine RBC (0-2) /HPF Urine WBC (0-5) /HPF Ur Squamous Epith Cells (0-2) /HPF Urine Bacteria (None Seen) Hyaline Casts (0-2) /LPF Influenza Type A (PCR) NEGATIVE (Negative) Influenza Type B (PCR) NEGATIVE (Negative) RSV RNA Qual (PCR) NEGATIVE (Negative) SARS-CoV-2 RNA (RT-PCR) NEGATIVE (Negative) 12/18/24 Range/Units 10:41 WBC (4.8-10.8) X10*3/uL RBC (4.20-5.50) X10*6/uL Hgb (12.0-16.0) g/dl Hct (37.0-47.0) % MCV (80.0-98.0) fL MCH (27.0-33.0) pg MCHC (31.0-35.0) g/dl RDW (11.0-16.0) % Plt Count (160-400) X10*3/uL MPV (9.4-12.3) fL Immature Gran % (Auto) (0.0-0.4) % Neut % (Auto) (45-73) % Lymph % (Auto) (20-40) % [place] % (Auto) (2-11) % Eos % (Auto) (0-4) % Baso % (Auto) (0-2) % Lymph # (Auto) (1.2-4.9) X10*3/uL [place] # (Auto) (0.1-1.2) X10*3/uL Eos # (Auto) (0.0-0.4) X10*3/uL Baso # (Auto) (0.0-0.2) X10*3/uL Abs Immat Gran (auto) (0.00-0.03) X10*3/uL Absolute Neuts (auto) (2.0-8.3) x10*3/uL Absolute Nucleated RBC (0.0-0.012) X10*3/uL Nucleated RBC % (auto) (0.0-0.2) /100WBC PT (10.9-12.4) SEC INR (0.9-1.1) VBG pH (7.32-7.43) VBG pCO2 mmHg VBG pO2 mmHg VBG HCO3 (22-26) mmol/L VBG O2 Saturation % VBG Base Excess mmol/L Sodium (135-145) mmol/L Potassium (3.3-5.1) mmol/L Chloride (96-108) mmol/L Carbon Dioxide (22-29) mmol/L Anion Gap (12-20) BUN (9-16) mg/dL Creatinine (0.5-1.4) mg/dL Estim Creat Clear Calc Estimated GFR Random Glucose (60-115) mg/dL Calcium (8.4-10.2) mg/dL Total Bilirubin (0.0-1.0) mg/dL Direct Bilirubin (0.0-0.5) mg/dL AST (5-31) U/L ALT (0-31) U/L Alkaline Phosphatase (39-117) U/L Troponin I High Sens (<3.5-17.0) ng/L Total Protein (6.5-8.0) g/dL Albumin (3.5-5.0) g/dL Urine Color Yellow Urine Appearance Clear Urine pH 5.5 (5.0-9.0) Ur Specific [place] 1.010 (1.005-1.025) Urine Protein Negative (Neg-Trace) mg/dL Urine Glucose (UA) Negative (Negative) mg/dL Urine Ketones Negative (Negative) mg/dL Urine Blood Negative (Negative) Urine Nitrite Negative (Negative) Ur Leukocyte Esterase Small (1+) H (Negative) Urine RBC 0-2 (0-2) /HPF Urine WBC 6-10 H (0-5) /HPF Ur Squamous Epith Cells 3-5 (0-2) /HPF Urine Bacteria None Seen (None Seen) Hyaline Casts 0-2 (0-2) /LPF Influenza Type A (PCR) (Negative) Influenza Type B (PCR) (Negative) RSV RNA Qual (PCR) (Negative) SARS-CoV-2 RNA (RT-PCR) (Negative) ABG Data Attestation ABG: I personally reviewed and interpreted this ABG as follows: Interpretation: No respiratory acidosis present cup CO2 is more or less at her baseline as well Independent Interpretation I performed an independent interpretation of an: EKG (114 beats per minute sinus tachycardia with PVCs) and Plain X-Ray (Increased vascular markings, cardiomegaly no consolidations no pneumothorax) Chronic Conditions Patient?s care impacted by: Diabetes and Other (COPD, CHF) Discharge Plan Discharge Clinical Impression: COPD (chronic obstructive pulmonary disease), Hypotension Patient Disposition: Admitted As Inpatient Print Language: Greenlandic
[2024-12-18 09:16] LABS: Alanine Aminotransferase 16 U/L (0-31); Albumin Level 3.6 g/dL (3.5-5.0); Alkaline Phosphatase 68 U/L (39-117); Anion Gap 12 (12-20); Aspartate Amino Transferase 18 U/L (5-31); Bilirubin Direct < 0.2 mg/dL (0.0-0.5); Bilirubin Total 0.1 mg/dL (0.0-1.0); Blood Urea Nitrogen 15 mg/dL (9-16); Calcium 8.9 mg/dL (8.4-10.2); Carbon Dioxide 27 mmol/L (22-29); Chloride 105 mmol/L (96-108); Estimated Glomerular Filt Rate > 60; Glucose Random 144 mg/dL (60-115); Potassium 3.4 mmol/L (3.3-5.1); Sodium 141 mmol/L (135-145); Total Protein 5.8 g/dL (6.5-8.0)
[2024-12-18 09:18] LABS: MANUAL DIFF FLAG NO
[2024-12-18 09:19] LABS: Basophils Percent Auto 0.1 % (0-2); Eosinophils Absolute Auto 0.1 X10*3/uL (0.0-0.4); Eosinophils Percent Auto 0.5 % (0-4); Hematocrit 34.7 % (37.0-47.0); Hemoglobin 10.1 g/dl (12.0-16.0); Imm Gran Abs Auto 0.13 X10*3/uL (0.00-0.03); Imm Gran Pct Auto 0.8 % (0.0-0.4); Lymphocytes Absolute Auto 2.1 X10*3/uL (1.2-4.9); Lymphocytes Percent Auto 13.7 % (20-40); Mean Corpuscular HGB Conc 29.1 g/dl (31.0-35.0); Mean Corpuscular Hemoglobin 21.6 pg (27.0-33.0); Mean Corpuscular Volume 74.1 fL (80.0-98.0); Mean Platelet Volume 9.1 fL (9.4-12.3); Monocytes Absolute Auto 0.6 X10*3/uL (0.1-1.2); Monocytes Percent Auto 4.2 % (2-11); Neutrophils Absolute Auto 12.4 x10*3/uL (2.0-8.3); Neutrophils Percent Auto 80.7 % (45-73); Platelet Count 319 X10*3/uL (160-400); Red Blood Count 4.68 X10*6/uL (4.20-5.50); Red Cell Distribution Width 17.5 % (11.0-16.0); White Blood Count 15.4 X10*3/uL (4.8-10.8)
[2024-12-18 09:23] LABS: Troponin-I High Sensitivity 21.7 ng/L (<3.5-17.0)
[2024-12-18 09:31] LABS: VBG Base Excess 4.6 mmol/L; VBG HCO3 31 mmol/L (22-26); VBG pCO2 57 mmHg; VBG pH 7.34 (7.32-7.43); VBG pO2 56 mmHg
[2024-12-18 09:32] LABS: Venous Blood Gas Refer to POC result
[2024-12-18] MEDS: Albuterol Sulfate 2.5 MG, Albuterol/Iprat 2.5/0.5MG 3 ML 3 ML INHALE (09:38)
[2024-12-18] MEDS: 0.9 % Sodium Chloride 500 ML 250 ML IVCONT (09:49)
[2024-12-18 09:53] LABS: Influenza A PCR NEGATIVE (Negative); Influenza B PCR NEGATIVE (Negative); Resp Syncy Virus RNA Qual PCR NEGATIVE (Negative); SARS COV2 PCR INHOUSE NEGATIVE (Negative)
--- NOTE | 2024-12-18 10:02 | PC.NURSE ---
pt resting comfortably at this time, no change from previous assesment. this rn placed a 22 ga iv in L ac upon arrival, this iv was also very positional and placed a us guided iv ti r upper arm. pt has had 1 resp tx she reports improvement.
--- NOTE | 2024-12-18 10:45 | PC.NURSE ---
Addendum entered by Omega Tan 12/18/24 10:51: IV fluids are completed. Original Note: pt became sob and desat high 80's with effort getting to commode.
[2024-12-18 10:47] LABS: Appearance Urine Clear; Color Urine Yellow; Glucose Urine UA Negative (Negative); Leukocyte Esterase Urine Small (1+) (Negative); Nitrite Urine Negative (Negative); PH 5.5 (5.0-9.0); UMIC TRIGGER UACC YES; Urine Blood Negative (Negative); Urine Ketones Negative (Negative); Urine Protein Negative (Neg-Trace)
[2024-12-18 10:49] LABS: Bacteria Urine None Seen (None Seen); Hyaline Casts Urine 0-2 /LPF (0-2); RBC Urine 0-2 /HPF (0-2); UACC Culture Trigger YES
--- NOTE | 2024-12-18 11:09 | PC.NURSE ---
Assumed care of pt, pt found lying in bed, oxygen misplaced, O2 sat 80's, pt placed back on O2, now sats 93%, pt updated on plan of care for admission.
--- NOTE | 2024-12-18 11:38 | PM.IMHP ---
History of Present Illness Date of Service: 12/18/24 Attending physician on admission: Oliverio [facility] Chief Complaint: sob This is a 54-year-old female with history of COPD, chronic respiratory failure who presents to the emergency department with shortness of the breath. She denies the use of cocaine recently. She reports pain with deep inspiration and cough. She reports associated shortness of breath. She denies any fever or chills. In the emergency department as she is on her baseline 2 L of supplemental oxygen. Chest x-ray showed possible interstitial edema. White blood cell count chronically elevated. She received a breathing treatment in the decision was made to admit her to the hospital for further management. Review of Systems Review of Systems: Yes all other systems are reviewed and are negative Constitutional: Constitutional: Denies chills and Denies fever(s) Cardiovascular: Comments: chest pain with cough PMFSH Medical History Chronic lung disease BAHMAN (generalized anxiety disorder) COPD (chronic obstructive pulmonary disease) Cocaine use disorder Cocaine abuse GERD (gastroesophageal reflux disease) Constipation Non-insulin dependent type 2 diabetes mellitus HENRY (obstructive sleep apnea) Acute exacerbation of chronic obstructive airways disease Asthma with exacerbation Obesity hypoventilation syndrome Chronic lung disease Hypoxic respiratory failure Nocturnal hypoxemia Diabetes mellitus COPD exacerbation Crack cocaine use Hyperkalemia Metabolic acidosis Leukocytosis Chest discomfort Chronic renal failure, stage 2 (mild) SOB (shortness of breath) Asthma Smoker Rotator cuff tendonitis GERD (gastroesophageal reflux disease) Chronic idiopathic constipation Bustos's esophagus Depression High triglycerides Gastroparesis Carpal tunnel syndrome of right wrist Nausea & vomiting Hernia Acute and chronic respiratory failure, unspecified whether with hypoxia or hypercapnia HTN (hypertension) Obesity (BMI 30-39.9) Knee pain, bilateral Family History Father Heart disease HENRY (obstructive sleep apnea) Family history of breast cancer Mother Asthma Emphysema, unspecified Bronchitis Smoker Alcoholism Bone marrow disease Maternal Grandmother Diabetes Surgical History History of cholecystectomy (~1988) History of carpal tunnel release Hx of tubal ligation History of pubovaginal sling (~2015) History of umbilical hernia repair (~2001) Hx of section History of open reduction and internal fixation (ORIF) procedure History of esophagogastroduodenoscopy (EGD) Social History Household Members: Family Household Members Other:: sister; lives on 3rd floor Housing: House Are you a primary hearing healthcare practitioner to a significant other at home: No Do you presently have visiting nurse or other home services: Yes (reinaldo DUTTA) Unable to assess alcohol history related to: Unknown Alcohol intake: never Comment: Sleeping Patient Tobacco Use Status: Current everyday Tobacco user Tobacco use type: Cigarette Cigarette Packs Per Day: 0.5 Cigarettes Per Day: 10 Years Smoked: 40 Smoked in Last 30 Days: Yes e-Cigarette/Vaping Use: Currently Using Second Hand Smoke Exposure: Yes Use of substances other than those prescribed or required for medical reasons: No Substance Use Type: Crack/Cocaine Have you been hit, kicked, punched, or otherwise hurt by someone within the past year? If so, by whom?: No Do you feel safe in your current relationship?: Yes Is there a partner from a previous relationship who is making you feel unsafe now?: No Advance Directives: Yes Advance Directives on File: Yes Advance Directives Date on File: 12/19/23 Do you have a plan to hurt others: No Plan Recently lost weight without trying: No How much weight loss: Not applicable Eating poorly because of decreased appetite: No Nutrition screen score: 0 Nutrition Risks: No Nutritional Risk Patient : No : No Poor oral hygiene: No service: No Current occupational status: disabled 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 Meds Allergies Allergy/AdvReac Type Severity Reaction Status Date / Time doxycycline Allergy Severe Swelling Verified 12/18/24 08:19 varenicline (From CHANTIX) Allergy Severe ANAPHYLAXIS Verified 12/18/24 08:19 azithromycin Allergy Intermediate Rash Verified 12/18/24 08:19 barium sulfate Allergy Intermediate angioedema Verified 12/18/24 08:19 cetirizine Allergy Mild Rash Verified 12/18/24 08:19 famotidine Allergy Mild Rash Verified 12/18/24 08:19 linaclotide (Linzess) Allergy Mild Rash Verified 12/18/24 08:19 Active Medications: Current Medications Acetaminophen (Acetaminophen 325 Mg Tablet) 650 mg PO Q6H PRN PRN Reason: Pain, Mild 1-3,fever,headache Sodium Chloride (0.9 % Sodium Chloride Flush 3 Ml Syringe) 3 ml IVFLUSH QSHIFT [facility] Home Medications ?Medication ?Instructions ?Recorded ?Confirmed ?Last Taken ?Type sertraline 100 mg tablet 100 mg PO DAILY 11/12/24 12/18/24 12/16/24 History sertraline 25 mg tablet 25 mg PO DAILY 11/12/24 12/18/24 12/16/24 History tiotropium 2.5 mcg-olodaterol 2.5 2 puff inhalation DAILY 11/26/24 12/18/24 12/16/24 History mcg/actuation mist for inhalation (Stiolto Respimat) insulin glargine 100 unit/mL (3 12 unit subcut BEDTIME 12/01/24 12/18/24 12/16/24 History mL) subcutaneous pen (Lantus Solostar U-100 Insulin) aspirin 325 mg tablet 650 mg PO Q6H PRN Pain 12/18/24 12/18/24 Unknown History quetiapine 50 mg tablet 50 mg PO BID 12/18/24 12/18/24 12/16/24 History topiramate 25 mg tablet 50 mg PO BID 12/18/24 12/18/24 12/16/24 History Physical Exam Vital Signs and Narrative: Vital Signs: Last Vital Signs Temp 97.9 F 12/18/24 09:50 Pulse 100 12/18/24 10:01 Resp 18 12/18/24 10:01 BP 116/67 12/18/24 10:01 Pulse Ox 95 12/18/24 10:01 O2 Del Method Nasal Cannula 12/18/24 10:01 O2 Flow Rate 2 12/18/24 09:50 BMI result Body Mass Index 28.3 Const: General: cooperative, comfortable, alert and awake Nutritional Appearance: overweight Orientation/consciousness: patient oriented x3 Resp: Other: wheeze Effort & Inspection: no respiratory distress and no use of accessory muscles Cardio: Rate: regular rate GI: Inspection: No distended Neuro: General: patient oriented x3, moves all extremities and CN's II-XI intact bilaterally Results Labs 12/18/24 09:11 12/18/24 08:51 Labs: Laboratory Results - last 24 hr 12/18/24 12/18/24 12/18/24 08:51 09:10 09:11 MCV 74.1 L MCH 21.6 L MCHC 29.1 L RDW 17.5 H Plt Count 319 MPV 9.1 L Immature Gran % (Auto) 0.8 H Neut % (Auto) 80.7 H Lymph % (Auto) 13.7 L [place] % (Auto) 4.2 Eos % (Auto) 0.5 Baso % (Auto) 0.1 Lymph # (Auto) 2.1 [place] # (Auto) 0.6 Eos # (Auto) 0.1 Baso # (Auto) 0.0 Abs Immat Gran (auto) 0.13 H Absolute Neuts (auto) 12.4 H Absolute Nucleated RBC 0.000 Nucleated RBC % (auto) 0.0 PT 10.3 L INR 0.9 VBG pH 7.34 VBG pCO2 57 VBG pO2 56 VBG HCO3 31 H VBG O2 Saturation 83.0 VBG Base Excess 4.6 Anion Gap 12 Estim Creat Clear Calc 75.0 Estimated GFR > 60 Random Glucose 144 H Calcium 8.9 Total Bilirubin 0.1 Direct Bilirubin < 0.2 AST 18 ALT 16 Alkaline Phosphatase 68 Troponin I High Sens 21.7 H Total Protein 5.8 L Albumin 3.6 Urine Color Urine Appearance Urine pH Ur Specific [place] Urine Protein Urine Glucose (UA) Urine Ketones Urine Blood Urine Nitrite Ur Leukocyte Esterase Urine RBC Urine WBC Ur Squamous Epith Cells Urine Bacteria Hyaline Casts Influenza Type A (PCR) NEGATIVE Influenza Type B (PCR) NEGATIVE RSV RNA Qual (PCR) NEGATIVE SARS-CoV-2 RNA (RT-PCR) NEGATIVE 12/18/24 10:41 MCV MCH MCHC RDW Plt Count MPV Immature Gran % (Auto) Neut % (Auto) Lymph % (Auto) [place] % (Auto) Eos % (Auto) Baso % (Auto) Lymph # (Auto) [place] # (Auto) Eos # (Auto) Baso # (Auto) Abs Immat Gran (auto) Absolute Neuts (auto) Absolute Nucleated RBC Nucleated RBC % (auto) PT INR VBG pH VBG pCO2 VBG pO2 VBG HCO3 VBG O2 Saturation VBG Base Excess Anion Gap Estim Creat Clear Calc Estimated GFR Random Glucose Calcium Total Bilirubin Direct Bilirubin AST ALT Alkaline Phosphatase Troponin I High Sens Total Protein Albumin Urine Color Yellow Urine Appearance Clear Urine pH 5.5 Ur Specific [place] 1.010 Urine Protein Negative Urine Glucose (UA) Negative Urine Ketones Negative Urine Blood Negative Urine Nitrite Negative Ur Leukocyte Esterase Small (1+) H Urine RBC 0-2 Urine WBC 6-10 H Ur Squamous Epith Cells 3-5 Urine Bacteria None Seen Hyaline Casts 0-2 Influenza Type A (PCR) Influenza Type B (PCR) RSV RNA Qual (PCR) SARS-CoV-2 RNA (RT-PCR) Imaging Radiologist's Impressions: Impressions Chest X-Ray 12/18/24 07:30 IMPRESSION: Mild interstitial lung edema in the correct clinical settings. Electronically signed by: Sharath Luke MD 12/18/2024 08:53 AM EDT RP Assessment and Plan (1) COPD with acute exacerbation: Status: Acute Plan This is a 54 yo f with a pmhx significant for COPD and chronic respiratory failure with hypoxia and hypercapnia on BiPAP at night, HENRY/OHS, HFpEF, diabetes mellitus, cocaine use disorder, and tobacco use disorder, who presented to the ED with sob and pain with coughing acute on chronic respiratory failure with hypoxia and hypercapnia due to acute COPD exacerbation no sepsis systemic steroids, duonebs bipap for sleep and NC while awake, titrate as tolerated tobacco use disorder smoking cessation encouraged NRT chronic HFpEF, no acute exacerbation continue home meds T2DM sliding scale insulin diabetic diet Mood Continue baseline medication HENRY resume BiPAP as above gerd continue ppi Chronic pain Continue gabapentin, tramadol full code VTE prophy: lovenox pt with acute on chronic hypoxic and hypercapneic respiratory failure secondary to sepsis, bilateral pneumonia and COPD exacerbation, requiring admission fovernight stay for IV abx, steroids and monitoring. Quality Stroke Does the patient have a stroke diagnosis?: No VTE Prior VTE?: No VTE Risk Level:: Medical - moderate - high VTE Device Contraindication: N/A - Device Ordered VTE Drug Contraindication: N/A - Med Ordered
--- NOTE | 2024-12-18 12:18 | PHA.MEDREC ---
Addendum entered by Hector Uriostegui [facility] 12/18/24 12:45: MED REC CHECKED BY [facility] Original Note: Pharmacy Consult ? Medication Reconciliation Pharmacy has completed the medication reconciliation. Spoke with pt and she confirmed her medications. Pt confirmed she was here in the beginning of the month and her medications should be up to date from that DC. Patient confirmed she still uses Furosemide 20mg tabs as needed for Fluid Retention, her PCP told her to stop taking the Glipizide 5mg tab last week and she is taking the Lantus Insulin confirming she takes 12 units at bedtime of that. She confirmed she finished the Prednisone 10mg regimen yesterday. Pt stated she has not had any of her medications in 2 days.
[2024-12-18] MEDS: methylPREDNISolone Sod Succ 40 MG VIAL IVPUSH (12:36)
[2024-12-18] MEDS: Enoxaparin Sodium 40 MG/0.4 ML SYRINGE SUBCUT (12:39)
[2024-12-18] MEDS: Nicotine 14 MG PATCH.TD24 TRANSDERMA (12:40)
[2024-12-18 13:06] LABS: Glucose, Whole Blood 421 mg/dL (60-115)
[2024-12-18] MEDS: TiZANidine HCL 4 MG TABLET PO (13:28)
[2024-12-18] MEDS: traMADoL HCL 50 MG TABLET PO (13:28)
[2024-12-18] MEDS: Gabapentin 400 MG CAPSULE 800 MG PO ×3 (13:28→20:37)
[2024-12-18] MEDS: Insulin Lispro 100 UNIT/ML 3 ML VIAL 16 UNIT SUBCUT (13:31)
[2024-12-18] MEDS: Albuterol/Iprat 2.5/0.5MG 3 ML AMPUL.NEB INHALE ×2 (15:33→19:04)
[2024-12-18 15:53] LABS: Glucose, Whole Blood 358 mg/dL (60-115)
[2024-12-18] MEDS: Insulin Lispro 100 UNIT/ML 3 ML VIAL SUBCUT ×3 (16:42→21:23)
[2024-12-18 16:51] LABS: Glucose, Whole Blood 366 mg/dL (60-115)
[2024-12-18] MEDS: 0.9 % Sodium Chloride Flush 3 ML SYRINGE IVFLUSH ×2 (17:22→20:37)
[2024-12-18] MEDS: Benzonatate 100 MG CAPSULE PO (17:24)
[2024-12-18] MEDS: guaiFEN/Codeine SF 200/20/10ML 10 ML LIQUID 5 ML PO (17:24)
[2024-12-18] MEDS: Topiramate 25 MG TABLET 50 MG PO (20:37)
[2024-12-18] MEDS: Theophylline Anhydrous ER 400 MG TAB.ER.24H PO (20:37)
[2024-12-18] MEDS: QUEtiapine Fumarate 50 MG TABLET PO (20:37)
[2024-12-18] MEDS: Atorvastatin Calcium 40 MG TABLET PO (20:37)
[2024-12-18 21:14] LABS: Glucose, Whole Blood 154 mg/dL (60-115)
[2024-12-18] MEDS: Insulin Glargine,Hum.rec.anlog 100 UNIT/ML 10 ML VIAL 12 UNIT SUBCUT (21:24)
[2024-12-19] VITALS (9 sets, daily range): BP systolic 112–137; BP diastolic 65–76; PULSE 94–109; RESP 16–20; TEMP 36–36.3; O2SAT 91–98
[2024-12-19] MEDS: methylPREDNISolone Sod Succ 40 MG VIAL IVPUSH ×2 (00:06→12:09)
[2024-12-19] MEDS: TiZANidine HCL 4 MG TABLET PO ×2 (00:07→13:42)
[2024-12-19] MEDS: guaiFEN/Codeine SF 200/20/10ML 10 ML LIQUID 5 ML PO (00:12)
[2024-12-19] MEDS: Albuterol Sulfate (0.083%) 2.5 MG/3 ML VIAL.NEB INHALE (01:05)
[2024-12-19] MEDS: Acetaminophen 325 MG TABLET 650 MG PO ×2 (04:40→20:27)
[2024-12-19] MEDS: Omeprazole 20 MG CAPSULE.DR PO (05:45)
[2024-12-19] MEDS: Albuterol/Iprat 2.5/0.5MG 3 ML AMPUL.NEB INHALE ×3 (07:38→19:22)
[2024-12-19 07:53] LABS: Glucose, Whole Blood 264 mg/dL (60-115)
[2024-12-19] MEDS: Topiramate 25 MG TABLET 50 MG PO ×2 (08:03→20:23)
[2024-12-19] MEDS: Furosemide 20 MG TABLET PO (08:03)
[2024-12-19] MEDS: Aspirin Enteric Coated 81 MG TABLET.DR PO (08:03)
[2024-12-19] MEDS: Calcium + Vitamin D 250 MG TABLET PO (08:03)
[2024-12-19] MEDS: Sertraline HCL 100 MG TABLET PO (08:03)
[2024-12-19] MEDS: QUEtiapine Fumarate 50 MG TABLET PO ×2 (08:03→20:23)
[2024-12-19] MEDS: Gabapentin 400 MG CAPSULE 800 MG PO ×4 (08:03→20:23)
[2024-12-19] MEDS: Losartan Potassium 50 MG TABLET PO (08:03)
[2024-12-19] MEDS: Loratadine 10 MG TABLET PO (08:03)
[2024-12-19] MEDS: Sertraline HCL 25 MG TABLET PO (08:03)
[2024-12-19] MEDS: Theophylline Anhydrous ER 400 MG TAB.ER.24H PO ×2 (08:03→20:23)
[2024-12-19] MEDS: Nicotine 14 MG PATCH.TD24 TRANSDERMA (08:04)
[2024-12-19] MEDS: Insulin Lispro 100 UNIT/ML 3 ML VIAL SUBCUT ×4 (08:04→21:02)
[2024-12-19] MEDS: 0.9 % Sodium Chloride Flush 3 ML SYRINGE IVFLUSH ×3 (08:10→20:24)
--- NOTE | 2024-12-19 11:36 | HO.PM.IMPN ---
Subjective Subjective Date of Service: 12/19/24 Interval History: Follow up COPD exacerbation patient doing better still on nebs and O2 supplement Review of Systems Review of Systems: Yes all other systems are reviewed and are negative Physical Exam Vital Signs: Vital Signs: Last Vital Signs Temp 96.8 F 12/19/24 07:46 Pulse 97 12/19/24 07:46 Resp 19 12/19/24 09:30 BP 118/76 12/19/24 07:46 Pulse Ox 98 12/19/24 07:46 O2 Del Method Nasal Cannula 12/19/24 07:46 O2 Flow Rate 2 12/19/24 07:46 BMI result Body Mass Index 28.3 Appearing in no acute distress lung sounds exp wheezing heart regular rate rhythm, clear S1, S2 positive bowel sounds, abdomen is soft, nontender neuro patient is alert x3, no focal deficits Objective Data Active Medications Acetaminophen (Acetaminophen 325 Mg Tablet) 650 mg PO Q6H PRN PRN Reason: Pain, Mild 1-3,fever,headache Last Admin: 12/19/24 04:40 Dose: 650 mg Documented By: PARISH Albuterol Sulfate (Albuterol Sulfate (0.083%) 2.5 Mg/3 Ml Vial.Neb) 2.5 mg INHALE Q4H PRN PRN Reason: Shortness of Breath/Wheezing Last Admin: 12/19/24 01:05 Dose: 2.5 mg Documented By: AALIYAH Albuterol/Ipratropium (Albuterol/Iprat 2.5/0.5mg 3 Ml Ampul.Neb) 3 ml INHALE RQ6H WHILE AWAKE [facility] Last Admin: 12/19/24 07:38 Dose: 3 ml Documented By: SAMMIE Aspirin (Aspirin Enteric Coated 81 Mg Tablet.) 81 mg PO DAILY [facility] Last Admin: 12/19/24 08:03 Dose: 81 mg Documented By: PHILIP Atorvastatin Calcium (Atorvastatin Calcium 40 Mg Tablet) 40 mg PO BEDTIME [facility] Last Admin: 12/18/24 20:37 Dose: 40 mg Documented By: PARISH Benzonatate (Benzonatate 100 Mg Capsule) 100 mg PO TID PRN PRN Reason: Cough Last Admin: 12/18/24 17:24 Dose: 100 mg Documented By: BECKIE Calcium Carbonate/Cholecalciferol (Calcium + Vitamin D 250 Mg Tablet) 250 mg PO DAILY [facility] Last Admin: 12/19/24 08:03 Dose: 250 mg Documented By: PHILIP Dextrose (Dextrose 50 % 25 Gm/50 Ml Syringe) 25 gm IVPUSH Q15M PRN; Protocol PRN Reason: per Hypoglycemia Standing Ord. Enoxaparin Sodium (Enoxaparin Sodium 40 Mg/0.4 Ml Syringe) 40 mg SUBCUT Q24H [place] Last Admin: 12/18/24 12:39 Dose: 40 mg Documented By: RENETTA Furosemide (Furosemide 20 Mg Tablet) 20 mg PO DAILY [facility]; Protocol Last Admin: 12/19/24 08:03 Dose: 20 mg Documented By: PHILIP Gabapentin (Gabapentin 400 Mg Capsule) 800 mg PO QID [facility] Last Admin: 12/19/24 08:03 Dose: 800 mg Documented By: PHILIP Glucose (Glucose Gel 15 Gm Gel..Gram.) 15 gm PO Q15M PRN; Protocol PRN Reason: per Hypoglycemia Standing Ord. Guaifenesin/Codeine Phosphate (Guaifen/Codeine Sf 200/20/10ml 10 Ml Liquid) 5 ml PO Q6H PRN PRN Reason: Cough Last Admin: 12/19/24 00:12 Dose: 5 ml Documented By: PARISH Insulin Glargine (Insulin Glargine,Hum.Rec.Anlog 100 Unit/Ml 10 Ml Vial) 12 unit SUBCUT BEDTIME [facility] Last Admin: 12/18/24 21:24 Dose: 12 unit Documented By: PARISH Insulin Human Lispro (Insulin Lispro 100 Unit/Ml 3 Ml Vial) 0 unit SUBCUT QIDACHS [facility]; Protocol Last Admin: 12/19/24 08:04 Dose: 6 unit Documented By: PHILIP Loratadine (Loratadine 10 Mg Tablet) 10 mg PO DAILY [facility] Last Admin: 12/19/24 08:03 Dose: 10 mg Documented By: PHILIP Losartan Potassium (Losartan Potassium 50 Mg Tablet) 50 mg PO DAILY [facility]; Protocol Last Admin: 12/19/24 08:03 Dose: 50 mg Documented By: PHILIP Methylprednisolone Sodium Succinate (Methylprednisolone Sod Succ 40 Mg Vial) 40 mg IVPUSH Q12H [facility] Last Admin: 12/19/24 00:06 Dose: 40 mg Documented By: PARISH Nicotine (Nicotine 14 Mg Patch.Td24) 14 mg TRANSDERMA DAILY [facility] Last Admin: 12/19/24 08:04 Dose: 14 mg Documented By: PHILIP Nicotine Polacrilex (Nicotine Polacrilex 2 Mg Gum) 2 mg BUCCAL Q2H PRN PRN Reason: Nicotine Cravings Non-Formulary Medication (Tiotropium-Olodaterol [Stiolto Respimat]) 2 puff INHALE DAILY [facility] Omeprazole (Omeprazole 20 Mg Capsule.Dr) 20 mg PO DAILY@0630 [facility] Last Admin: 12/19/24 05:45 Dose: 20 mg Documented By: PARISH Ondansetron HCl (Ondansetron Hcl 4 Mg/2 Ml Vial) 4 mg IVPUSH Q8H PRN PRN Reason: Nausea and Vomiting Polyethylene Glycol (Polyethylene Glycol 3350 17 Gm Powd.Pack) 17 gm PO DAILY PRN PRN Reason: Constipation Quetiapine Fumarate (Quetiapine Fumarate 50 Mg Tablet) 50 mg PO BID [facility] Last Admin: 12/19/24 08:03 Dose: 50 mg Documented By: PHILIP Sertraline HCl (Sertraline Hcl 100 Mg Tablet) 100 mg PO DAILY [facility] Last Admin: 12/19/24 08:03 Dose: 100 mg Documented By: PHILIP Sertraline HCl (Sertraline Hcl 25 Mg Tablet) 25 mg PO DAILY [facility] Last Admin: 12/19/24 08:03 Dose: 25 mg Documented By: PHILIP Sodium Chloride (0.9 % Sodium Chloride Flush 3 Ml Syringe) 3 ml IVFLUSH QSHIFT [facility] Last Admin: 12/19/24 08:10 Dose: 3 ml Documented By: PHILIP Theophylline (Theophylline Anhydrous Er 400 Mg Tab.Er.24h) 400 mg PO BID [facility] Last Admin: 12/19/24 08:03 Dose: 400 mg Documented By: PHILIP Tizanidine HCl (Tizanidine Hcl 4 Mg Tablet) 4 mg PO Q12H [facility] Last Admin: 12/19/24 00:07 Dose: 4 mg Documented By: PARISH Topiramate (Topiramate 25 Mg Tablet) 50 mg PO BID [facility] Last Admin: 12/19/24 08:03 Dose: 50 mg Documented By: PHILIP Tramadol HCl (Tramadol Hcl 50 Mg Tablet) 50 mg PO Q6H PRN PRN Reason: Pain, Severe (Pain Scale 7-10) Last Admin: 12/18/24 13:28 Dose: 50 mg Documented By: SALBADOR Labs 12/18/24 09:11 12/18/24 08:51 Labs: Laboratory Results - last 24 hr 12/18/24 12/18/24 12/18/24 12:32 13:02 15:48 POC Glucose 366 H* 421 H* 358 H* 12/18/24 12/19/24 21:10 07:45 POC Glucose 154 H 264 H Microbiology Microbiology Results: Microbiology 12/18/24 Unknown Urine Culture - Final Urine clean catch - Clean Catch Midstream No growth. Assessment and Plan (1) Acute exacerbation of chronic obstructive pulmonary disease: Status: Acute Plan 54 yo f with a pmhx significant for COPD and chronic respiratory failure with hypoxia and hypercapnia on BiPAP at night, HENRY/OHS, HFpEF, diabetes mellitus, cocaine use disorder, and tobacco use disorder, who presented to the ED with sob and pain with coughing Acute on chronic respiratory failure with hypoxia and hypercapnia due to acute COPD exacerbation no sepsis systemic steroids, duonebs bipap for sleep and NC while awake, titrate as tolerated Tobacco use disorder smoking cessation encouraged NRT Chronic HFpEF, no acute exacerbation continue home meds T2DM sliding scale insulin diabetic diet Mood Continue baseline medication HENRY resume BiPAP as above GERD continue ppi Chronic pain Continue gabapentin, tramadol full code VTE prophy: lovenox Quality Stroke Does the patient have a stroke diagnosis?: No VTE Prior VTE?: No VTE Risk Level:: Medical - moderate - high VTE Device Contraindication: N/A - Device Ordered VTE Drug Contraindication: N/A - Med Ordered
[2024-12-19 11:56] LABS: Glucose, Whole Blood 163 mg/dL (60-115)
[2024-12-19] MEDS: Enoxaparin Sodium 40 MG/0.4 ML SYRINGE SUBCUT (12:09)
[2024-12-19] MEDS: Ketorolac Tromethamine 30 MG/ML VIAL IVPUSH (12:09)
--- NOTE | 2024-12-19 12:39 | MHC.CM.PN ---
PT REPORTS SHE LIVES WITH HER SISTER AND HAS DAILY RECEIPT AND REPORT CLERK SERVICES PT HAS A CANE, WALKER, HOME O2 AND A CPAP ([facility]) HCP ON FILE PCP: DALJIT HAINES DCP: HOME WITH RESUMPTION OF RECEIPT AND REPORT CLERK SERVICES PT REPORTS SHE WILL NEED BLS TRANSPORT
[2024-12-19 16:25] LABS: Glucose, Whole Blood 301 mg/dL (60-115)
[2024-12-19] MEDS: traMADoL HCL 50 MG TABLET PO ×2 (16:42→22:38)
[2024-12-19] MEDS: Atorvastatin Calcium 40 MG TABLET PO (20:23)
[2024-12-19] MEDS: Insulin Glargine,Hum.rec.anlog 100 UNIT/ML 10 ML VIAL 12 UNIT SUBCUT (21:01)
[2024-12-19 21:04] LABS: Glucose, Whole Blood 342 mg/dL (60-115)
[2024-12-20] VITALS (9 sets, daily range): BP systolic 112–150; BP diastolic 67–91; PULSE 92–112; RESP 14–19; TEMP 35.4–36.2; O2SAT 92–97
[2024-12-20] MEDS: methylPREDNISolone Sod Succ 40 MG VIAL IVPUSH ×2 (00:14→12:15)
[2024-12-20] MEDS: TiZANidine HCL 4 MG TABLET PO ×2 (00:14→12:14)
[2024-12-20] MEDS: Albuterol Sulfate (0.083%) 2.5 MG/3 ML VIAL.NEB INHALE (04:47)
[2024-12-20] MEDS: Omeprazole 20 MG CAPSULE.DR PO (05:38)
[2024-12-20 07:16] LABS: Glucose, Whole Blood 264 mg/dL (60-115)
[2024-12-20] MEDS: Albuterol/Iprat 2.5/0.5MG 3 ML AMPUL.NEB INHALE ×3 (07:34→18:32)
[2024-12-20] MEDS: Nicotine 14 MG PATCH.TD24 TRANSDERMA (07:50)
[2024-12-20] MEDS: Insulin Lispro 100 UNIT/ML 3 ML VIAL SUBCUT ×3 (07:50→20:22)
[2024-12-20] MEDS: Aspirin Enteric Coated 81 MG TABLET.DR PO (07:50)
[2024-12-20] MEDS: QUEtiapine Fumarate 50 MG TABLET PO ×2 (07:50→20:09)
[2024-12-20] MEDS: Theophylline Anhydrous ER 400 MG TAB.ER.24H PO ×2 (07:51→20:09)
[2024-12-20] MEDS: Gabapentin 400 MG CAPSULE 800 MG PO ×4 (07:51→20:09)
[2024-12-20] MEDS: Losartan Potassium 50 MG TABLET PO (07:51)
[2024-12-20] MEDS: Sertraline HCL 25 MG TABLET PO (07:51)
[2024-12-20] MEDS: Calcium + Vitamin D 250 MG TABLET PO (07:51)
[2024-12-20] MEDS: Furosemide 20 MG TABLET PO (07:51)
[2024-12-20] MEDS: Loratadine 10 MG TABLET PO (07:51)
[2024-12-20] MEDS: Topiramate 25 MG TABLET 50 MG PO ×2 (07:52→20:09)
[2024-12-20] MEDS: Sertraline HCL 100 MG TABLET PO (07:52)
--- NOTE | 2024-12-20 11:06 | P.PNIM_ITS ---
Subjective Subjective Date of Service: 12/20/24 Interval History: Follow up COPD exacerbation patient doing better still on nebs and O2 supplement Review of Systems Review of Systems: Yes all other systems are reviewed and are negative Physical Exam 2 Vital Signs: Vital Signs: Last Vital Signs Temp 97 F 12/20/24 07:07 Pulse 102 H 12/20/24 07:34 Resp 16 12/20/24 07:34 BP 150/72 H 12/20/24 07:07 Pulse Ox 95 12/20/24 07:07 O2 Del Method Nasal Cannula 12/20/24 07:07 O2 Flow Rate 2 12/20/24 07:07 BMI result Body Mass Index 28.3 Appearing in no acute distress lung sounds exp wheezing heart regular rate rhythm, clear S1, S2 positive bowel sounds, abdomen is soft, nontender neuro patient is alert x3, no focal deficits Objective Data Active Medications Acetaminophen (Acetaminophen 325 Mg Tablet) 650 mg PO Q6H PRN PRN Reason: Pain, Mild 1-3,fever,headache Last Admin: 12/19/24 20:27 Dose: 650 mg Documented By: PARISH Albuterol Sulfate (Albuterol Sulfate (0.083%) 2.5 Mg/3 Ml Vial.Neb) 2.5 mg INHALE Q4H PRN PRN Reason: Shortness of Breath/Wheezing Last Admin: 12/20/24 04:47 Dose: 2.5 mg Documented By: AALIYAH Albuterol/Ipratropium (Albuterol/Iprat 2.5/0.5mg 3 Ml Ampul.Neb) 3 ml INHALE RQ6H WHILE AWAKE [facility] Last Admin: 12/20/24 07:34 Dose: 3 ml Documented By: SAMMIE Aspirin (Aspirin Enteric Coated 81 Mg Tablet.) 81 mg PO DAILY [facility] Last Admin: 12/20/24 07:50 Dose: 81 mg Documented By: PHILIP Atorvastatin Calcium (Atorvastatin Calcium 40 Mg Tablet) 40 mg PO BEDTIME [facility] Last Admin: 12/19/24 20:23 Dose: 40 mg Documented By: PARISH Benzonatate (Benzonatate 100 Mg Capsule) 100 mg PO TID PRN PRN Reason: Cough Last Admin: 12/18/24 17:24 Dose: 100 mg Documented By: BECKIE Calcium Carbonate/Cholecalciferol (Calcium + Vitamin D 250 Mg Tablet) 250 mg PO DAILY [facility] Last Admin: 12/20/24 07:51 Dose: 250 mg Documented By: PHILIP Dextrose (Dextrose 50 % 25 Gm/50 Ml Syringe) 25 gm IVPUSH Q15M PRN; Protocol PRN Reason: per Hypoglycemia Standing Ord. Enoxaparin Sodium (Enoxaparin Sodium 40 Mg/0.4 Ml Syringe) 40 mg SUBCUT Q24H [facility] Last Admin: 12/19/24 12:09 Dose: 40 mg Documented By: PHILIP Furosemide (Furosemide 20 Mg Tablet) 20 mg PO DAILY [place]; Protocol Last Admin: 12/20/24 07:51 Dose: 20 mg Documented By: PHILIP Gabapentin (Gabapentin 400 Mg Capsule) 800 mg PO QID [facility] Last Admin: 12/20/24 07:51 Dose: 800 mg Documented By: PHILIP Glucose (Glucose Gel 15 Gm Gel..Gram.) 15 gm PO Q15M PRN; Protocol PRN Reason: per Hypoglycemia Standing Ord. Guaifenesin/Codeine Phosphate (Guaifen/Codeine Sf 200/20/10ml 10 Ml Liquid) 5 ml PO Q6H PRN PRN Reason: Cough Last Admin: 12/19/24 00:12 Dose: 5 ml Documented By: PARISH Insulin Glargine (Insulin Glargine,Hum.Rec.Anlog 100 Unit/Ml 10 Ml Vial) 12 unit SUBCUT BEDTIME [facility] Last Admin: 12/19/24 21:01 Dose: 12 unit Documented By: PARISH Insulin Human Lispro (Insulin Lispro 100 Unit/Ml 3 Ml Vial) 0 unit SUBCUT QIDACHS [facility]; Protocol Last Admin: 12/20/24 07:50 Dose: 6 unit Documented By: PHILIP Loratadine (Loratadine 10 Mg Tablet) 10 mg PO DAILY [facility] Last Admin: 12/20/24 07:51 Dose: 10 mg Documented By: PHILIP Losartan Potassium (Losartan Potassium 50 Mg Tablet) 50 mg PO DAILY [facility]; Protocol Last Admin: 12/20/24 07:51 Dose: 50 mg Documented By: PHILIP Methylprednisolone Sodium Succinate (Methylprednisolone Sod Succ 40 Mg Vial) 40 mg IVPUSH Q12H [facility] Last Admin: 12/20/24 00:14 Dose: 40 mg Documented By: PARISH Nicotine (Nicotine 14 Mg Patch.Td24) 14 mg TRANSDERMA DAILY [facility] Last Admin: 12/20/24 07:50 Dose: 14 mg Documented By: PHILIP Nicotine Polacrilex (Nicotine Polacrilex 2 Mg Gum) 2 mg BUCCAL Q2H PRN PRN Reason: Nicotine Cravings Non-Formulary Medication (Tiotropium-Olodaterol [Stiolto Respimat]) 2 puff INHALE DAILY [facility] Omeprazole (Omeprazole 20 Mg Capsule.Dr) 20 mg PO DAILY@0630 [facility] Last Admin: 12/20/24 05:38 Dose: 20 mg Documented By: PARISH Ondansetron HCl (Ondansetron Hcl 4 Mg/2 Ml Vial) 4 mg IVPUSH Q8H PRN PRN Reason: Nausea and Vomiting Polyethylene Glycol (Polyethylene Glycol 3350 17 Gm Powd.Pack) 17 gm PO DAILY PRN PRN Reason: Constipation Quetiapine Fumarate (Quetiapine Fumarate 50 Mg Tablet) 50 mg PO BID [facility] Last Admin: 12/20/24 07:50 Dose: 50 mg Documented By: PHILIP Sertraline HCl (Sertraline Hcl 100 Mg Tablet) 100 mg PO DAILY [facility] Last Admin: 12/20/24 07:52 Dose: 100 mg Documented By: PHILIP Sertraline HCl (Sertraline Hcl 25 Mg Tablet) 25 mg PO DAILY [facility] Last Admin: 12/20/24 07:51 Dose: 25 mg Documented By: PHILIP Sodium Chloride (0.9 % Sodium Chloride Flush 3 Ml Syringe) 3 ml IVFLUSH QSHIFT [facility] Last Admin: 12/20/24 09:49 Dose: Not Given Documented By: PHIILP Non-Admin Reason: Previously Administered Theophylline (Theophylline Anhydrous Er 400 Mg Tab.Er.24h) 400 mg PO BID [facility] Last Admin: 12/20/24 07:51 Dose: 400 mg Documented By: PHILIP Tizanidine HCl (Tizanidine Hcl 4 Mg Tablet) 4 mg PO Q12H [facility] Last Admin: 12/20/24 00:14 Dose: 4 mg Documented By: PARISH Topiramate (Topiramate 25 Mg Tablet) 50 mg PO BID [facility] Last Admin: 12/20/24 07:52 Dose: 50 mg Documented By: PHILIP Tramadol HCl (Tramadol Hcl 50 Mg Tablet) 50 mg PO Q6H PRN PRN Reason: Pain, Severe (Pain Scale 7-10) Last Admin: 12/19/24 22:38 Dose: 50 mg Documented By: PARISH Labs 12/18/24 09:11 12/18/24 08:51 Labs: Laboratory Results - last 24 hr 12/19/24 12/19/24 12/19/24 11:46 16:14 20:55 POC Glucose 163 H 301 H 342 H 12/20/24 07:06 POC Glucose 264 H Microbiology Microbiology Results: Microbiology 12/18/24 Unknown Urine Culture - Final Urine clean catch - Clean Catch Midstream No growth. Assessment and Plan (1) Acute exacerbation of chronic obstructive pulmonary disease: Status: Acute Plan 54 yo f with a pmhx significant for COPD and chronic respiratory failure with hypoxia and hypercapnia on BiPAP at night, HENRY/OHS, HFpEF, diabetes mellitus, cocaine use disorder, and tobacco use disorder, who presented to the ED with sob and pain with coughing Acute on chronic respiratory failure with hypoxia and hypercapnia due to acute COPD exacerbation no sepsis systemic steroids, duonebs bipap for sleep and NC while awake, titrate as tolerated Tobacco use disorder smoking cessation encouraged NRT Chronic HFpEF, no acute exacerbation continue home meds T2DM sliding scale insulin diabetic diet Mood Continue baseline medication HENRY resume BiPAP as above GERD continue ppi Chronic pain Continue gabapentin, tramadol full code VTE prophy: lovenox Quality Stroke Does the patient have a stroke diagnosis?: No VTE Prior VTE?: No VTE Risk Level:: Medical - moderate - high VTE Device Contraindication: N/A - Device Ordered VTE Drug Contraindication: N/A - Med Ordered
[2024-12-20 11:10] LABS: Glucose, Whole Blood 123 mg/dL (60-115)
[2024-12-20] MEDS: Enoxaparin Sodium 40 MG/0.4 ML SYRINGE SUBCUT (12:15)
[2024-12-20] MEDS: traMADoL HCL 50 MG TABLET PO ×2 (12:15→18:27)
[2024-12-20 16:32] LABS: Glucose, Whole Blood 331 mg/dL (60-115)
[2024-12-20] MEDS: 0.9 % Sodium Chloride Flush 3 ML SYRINGE IVFLUSH ×2 (17:06→20:23)
[2024-12-20] MEDS: Atorvastatin Calcium 40 MG TABLET PO (20:09)
[2024-12-20] MEDS: Benzonatate 100 MG CAPSULE PO (20:09)
[2024-12-20] MEDS: Acetaminophen 325 MG TABLET 650 MG PO (20:10)
[2024-12-20] MEDS: guaiFEN/Codeine SF 200/20/10ML 10 ML LIQUID 5 ML PO (20:13)
[2024-12-20 20:17] LABS: Glucose, Whole Blood 266 mg/dL (60-115)
[2024-12-20] MEDS: Insulin Glargine,Hum.rec.anlog 100 UNIT/ML 10 ML VIAL 12 UNIT SUBCUT (20:23)
--- NOTE | 2024-12-20 21:00 | PC.NURSE ---
2100: POC of 266, This RN went into give insulin, pt requested sherbert, I told the patient she can have sandwich and saltines, and I explained that we are trying to control her blood sugars. Pt verbalized her understanding and agreed to a turkey sandwich with some saltine crackers. 2200: Pt preceded to ask for multiple snacks asking [employer] for isidro crackers, and alice-adry's. 2330: Pt still asking for isidro crackers and coffee, pt explained again that we can not keep giving her snack through the night d/t her elevated blood sugar, which will continue to make it worse.
[2024-12-21] MEDS: TiZANidine HCL 4 MG TABLET PO (00:23)
[2024-12-21] MEDS: methylPREDNISolone Sod Succ 40 MG VIAL IVPUSH (00:24)
[2024-12-21] MEDS: traMADoL HCL 50 MG TABLET PO (01:02)
[2024-12-21] MEDS: Albuterol Sulfate (0.083%) 2.5 MG/3 ML VIAL.NEB INHALE (02:59)
[2024-12-21 03:07] VITALS: PULSE 99; RESP 16; O2SAT 93
[2024-12-21 03:08] VITALS: PULSE 103; RESP 16; O2SAT 93
[2024-12-21 03:47] VITALS: BP 127/75; PULSE 90; RESP 20; TEMP 36.4; O2SAT 99
--- NOTE | 2024-12-21 07:34 | PC.NURSE ---
assumed care of this patient at 2300. Patient was asking for food quite a bit this shift, she was given sandwich by previous RN after HS insulin, per SANDRA Rodriguez. At midnight patient was also given half coffee with cream and sweetener and two packages isidro crackers. I also gave patient sugar free alice adry approx 0500 after she was asking for food again. I looked in S3 and S4 kitchen and there was no diabetic jello, puddings, or ice cream, patient educated on diabetic diet as her sugars have been high and kept asking for isidro crackers and other high glycemic foods. This morning patient SALEEM Mejia told me she gave four packages saltines and two alice ales during night.
[2024-12-21] MEDS: Insulin Lispro 100 UNIT/ML 3 ML VIAL SUBCUT (08:07)
[2024-12-21] MEDS: Nicotine 14 MG PATCH.TD24 TRANSDERMA (08:08)
[2024-12-21] MEDS: Calcium + Vitamin D 250 MG TABLET PO (08:09)
[2024-12-21] MEDS: Sertraline HCL 100 MG TABLET PO (08:09)
[2024-12-21] MEDS: Gabapentin 400 MG CAPSULE 800 MG PO (08:09)
[2024-12-21] MEDS: Furosemide 20 MG TABLET PO (08:09)
[2024-12-21] MEDS: Theophylline Anhydrous ER 400 MG TAB.ER.24H PO (08:09)
[2024-12-21] MEDS: Topiramate 25 MG TABLET 50 MG PO (08:09)
[2024-12-21] MEDS: Aspirin Enteric Coated 81 MG TABLET.DR PO (08:09)
[2024-12-21] MEDS: Losartan Potassium 50 MG TABLET PO (08:10)
[2024-12-21] MEDS: Sertraline HCL 25 MG TABLET PO (08:10)
[2024-12-21] MEDS: Loratadine 10 MG TABLET PO (08:10)
[2024-12-21] MEDS: QUEtiapine Fumarate 50 MG TABLET PO (08:10)
[2024-12-21 08:13] LABS: Glucose, Whole Blood 284 mg/dL (60-115)
[2024-12-21] MEDS: 0.9 % Sodium Chloride Flush 3 ML SYRINGE IVFLUSH (08:15)
[2024-12-21 08:16] VITALS: BP 123/77; PULSE 97; RESP 18; TEMP 36.1; O2SAT 97
[2024-12-21] MEDS: Albuterol/Iprat 2.5/0.5MG 3 ML AMPUL.NEB INHALE (08:16)
[2024-12-21 08:19] VITALS: PULSE 98; RESP 20; O2SAT 98
--- NOTE | 2024-12-21 09:13 | PM.DS ---
DS: Providers Provider Date of Service: 12/21/24 Date of admission: 12/18/24 11:06 Date of discharge: 12/21/24 Primary care physician: DOTTY Lazcano DS: Diagnosis Discharge Diagnosis (1) Acute exacerbation of chronic obstructive pulmonary disease: Status: Acute DS: Summary Hospital Course Hospital Course: HP as per admitting provider. This is a 54-year-old female with history of COPD, chronic respiratory failure who presents to the emergency department with shortness of the breath. She denies the use of cocaine recently. She reports pain with deep inspiration and cough. She reports associated shortness of breath. She denies any fever or chills. In the emergency department as she is on her baseline 2 L of supplemental oxygen. Chest x-ray showed possible interstitial edema. White blood cell count chronically elevated. She received a breathing treatment in the decision was made to admit her to the hospital for further management. 54-year-old woman treated for acute on chronic respiratory failure with hypoxia and hypercapnia secondary to acute COPD exacerbation. Patient is on baseline oxygen at home as well as BiPAP at bedtime and as needed. Patient was treated with systemic steroids and scheduled DuoNebs while inpatient. At this point patient is feeling ready to be discharged home. She should continue with her current management of oxygen and BiPAP. Discussed case with her attending urologist who recommended continuing prednisone 40 mg daily. Tobacco use. Discussed the importance of smoking cessation. May use nicotine replacement therapy as needed Chronic heart failure with preserved ejection fraction. No acute exacerbation during hospitalization. Continue home medications Type 2 diabetes mellitus. Continue home medications, diabetic diet Mental health. Continue home medications Obstructive sleep apnea. Continue BiPAP at home GERD. Continue PPI Chronic pain. Continue gabapentin and tramadol Time Attestation Discharge Coordination Time (in mins): 42 Quality: Safe Use of Opioids Does Pt have an Active Cancer Diagnosis on the Problem List?: No Quality: Stroke Does the patient have a stroke diagnosis?: No Physical Exam Vital Signs: Vital Signs: Last Vital Signs Temp 96.9 F 12/21/24 08:16 Pulse 98 12/21/24 08:19 Resp 20 12/21/24 08:19 BP 123/77 12/21/24 08:16 Pulse Ox 97 12/21/24 08:16 O2 Del Method Nasal Cannula 12/21/24 08:16 O2 Flow Rate 2 12/21/24 08:16 BMI result Body Mass Index 28.3 Appearing in no acute distress head is normocephalic atraumatic eyes pupils are PERRLA sclera is anicteric mouth throat mucous membranes are intact and moist neck is supple no lymphadenopathy, no JVD noted lung sounds are clear to auscultation heart regular rate rhythm, clear S1, S2 positive bowel sounds, abdomen is soft, nontender neuro patient is alert x3, no focal deficits DS: Data Data Completed and Pending Completed studies during hospitalization [Text1]: Procedures Assistance with Respiratory Ventilation, 24-96 Consecutive Hours, Continuous Positive Airway Pressure (10/30/24) Assistance with Respiratory Ventilation, Less than 24 Consecutive Hours, Continuous Positive Airway Pressure (11/30/24) Insertion of Endotracheal Airway into Trachea, Via Natural or Artificial Opening (10/30/24) Insertion of Infusion Device into Superior Vena Cava, Percutaneous Approach (11/03/20) Introduction of Vasopressor into Peripheral Vein, Percutaneous Approach (10/30/24) Respiratory Ventilation, Less than 24 Consecutive Hours (10/30/24) Labs on day of discharge: Laboratory Results - last 24 hr 12/20/24 12/20/24 12/20/24 11:06 16:21 20:13 POC Glucose 123 H 331 H 266 H 12/21/24 07:55 POC Glucose 284 H Discharge Plan Discharge Anticipated Discharge Date/Time: 12/21/24 09:01 Patient Disposition: Home, Self-Care Discharge Diagnosis: COPD exacerbation Referrals: Joe Hale, [employer] ASSISTANT-BC [Primary Care Provider, Internal Medicine] - 1 week Referral Note: Patient has had multiple ED visits, needs to be re-evaluated on outpatient basis, make sure she has pulmonary appointment as well, continue with smoking cessation education Problems: COPD (chronic obstructive pulmonary disease) Kolby Kessler MD [Physician, Pulmonology] Discharge Medications: New codeine-guaifenesin 10-100 mg/5 mL Liquid 5 ml PO Q6H PRN (Reason: Cough) Qty: 118 0RF prednisone 10 mg tablet 40 mg PO DIRECTED Qty: 120 0RF Rx Instructions: see taper instructions Continued (DME) cane Device See Rx Instructions .Route Qty: 1 0RF Rx Instructions: Standard cane (DME) Rollator walker See Rx Instructions .Route .MEDSUPPLY Qty: 1 0RF Rx Instructions: As directed (DME) pulse oximeter See Rx Instructions .Route .MEDSUPPLY Qty: 1 0RF Rx Instructions: As directed (DME) FreeStyle Jemima 3 [place] Misc See Rx Instructions .Route Qty: 1 0RF Rx Instructions: To monitor blood sugar 4 times per day albuterol sulfate 2.5 mg /3 mL (0.083 %) solution for nebulization 2.5 mg inhalation Q4H PRN (Reason: Shortness Of Breath/Wheezing) Qty: 180 6RF theophylline 400 mg tablet extended release 24 hr 400 mg PO BID 90 Days Qty: 180 4RF albuterol sulfate [Ventolin HFA] 90 mcg/actuation HFA aerosol inhaler 2 puff inhalation Q6H PRN (Reason: for wheezing) Qty: 1 6RF acetaminophen 650 mg tablet extended release 650 mg PO Q12H PRN (Reason: pain) 30 Days Qty: 60 0RF aspirin 81 mg tablet,delayed release (DR/EC) 81 mg PO DAILY 90 Days Qty: 90 1RF atorvastatin 40 mg tablet 40 mg PO BEDTIME Qty: 90 0RF (DME) FreeStyle Lite Strips Strip See Rx Instructions .ROUTE .MEDSUPPLY Qty: 100 1RF Rx Instructions: Use to check blood sugar daily or if symptomatic hypo/hypergylcemia calcium carbonate-vitamin D3 500 mg-10 mcg (400 unit) tablet 1 tab PO DAILY Qty: 90 0RF (DME) 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 meter [FreeStyle Lite Meter] Kit See Rx Instructions .ROUTE .MEDSUPPLY Qty: 1 0RF Rx Instructions: Use to check blood sugar daily or if symptomatic for hypo/hyperglycemia esomeprazole magnesium 40 mg capsule,delayed release(DR/EC) 40 mg PO DAILY@0630 Qty: 90 1RF fexofenadine [Elisabeth Allergy] 180 mg tablet 180 mg PO DAILY Qty: 30 3RF furosemide 20 mg tablet 20 mg PO DAILY Qty: 90 3RF gabapentin 800 mg tablet 800 mg PO QID 30 Days Qty: 120 1RF glucose 4 gram tablet,chewable 16 g PO Q15M MDD 8 tabs PRN (Reason: hypoglycemia) Qty: 100 1RF Rx Instructions: until symptoms of low blood sugar are controlled ibuprofen 800 mg tablet 800 mg PO BID PRN (Reason: Headache) 30 Days Qty: 60 0RF Rx Instructions: please use sparingly due to diabetes ipratropium-albuterol 0.5 mg-3 mg(2.5 mg base)/3 mL solution for nebulization 3 ml INHALATION TID Qty: 180 0RF (DME) lancets [FreeStyle Lancets] 28 gauge misc See Rx Instructions .ROUTE .MEDSUPPLY Qty: 100 1RF Rx Instructions: Use to check blood sugar daily or if symptomatic hypo/hypergylcemia losartan 50 mg tablet 50 mg PO DAILY Qty: 90 0RF (DME) FreeStyle Jemima 3 Plus Sensor Device See Rx Instructions .Route Qty: 2 5RF Rx Instructions: To monitor blood sugars 4 times per day. Change sensor every 15 days (DME) pen needle, diabetic 31 gauge x 5/16 needle See Rx Instructions .Route Qty: 100 0RF Rx Instructions: Use to inject insulin once a day tizanidine 4 mg tablet 4 mg PO Q12H 30 Days Qty: 60 0RF Rx Instructions: do not take concurrently with famotidine (DME) walker Misc See Rx Instructions .Route Qty: 1 0RF Rx Instructions: As directed sertraline 25 mg tablet 25 mg PO DAILY Rx Instructions: Taken with 100mg tab for TDD of 125mg. sertraline 100 mg tablet 100 mg PO DAILY Rx Instructions: TAKE WITH 25MG FOR TOTAL OF 125MG dextrose [Glucose Gel] 40 % gel 10 g PO Q15M PRN (Reason: hypoglycemia) Qty: 300 0RF Rx Instructions: until symptoms of low blood sugar are controlled glucagon HCl [Glucagon (HCl) Emergency Kit] 1 mg recon soln 1 mg subcut Q20M PRN (Reason: hypoglycemia) Qty: 1 0RF Rx Instructions: until target blood sugar attained Stiolto Respimat 2.5-2.5 mcg/actuation mist 2 puff inhalation DAILY naloxone [Narcan] 4 mg/actuation spray,non-aerosol 4 mg intranasal Q2M PRN (Reason: opioid overdose) Qty: 2 0RF Rx Instructions: spray 1 dose into ONE nostril; alternate nostrils w each dose until help arrives insulin glargine [Lantus Solostar U-100 Insulin] 100 unit/mL (3 mL) insulin pen 12 unit subcut BEDTIME quetiapine 50 mg tablet 50 mg PO BID topiramate 25 mg tablet 50 mg PO BID Rx Instructions: take one tab twice daily for one week, then increase to 2 tabs twice daily aspirin 325 mg Tablet 650 mg PO Q6H PRN (Reason: Pain) nicotine 21 mg/24 hr patch 24 hour 1 patch transdermal Q24H Qty: 28 0RF tramadol 50 mg tablet 50 mg PO Q6H PRN (Reason: pain) Qty: 20 0RF Discharge Orders: Discharge Order (Routine); Ordered 12/21/24 Ordered By: Macie Rhodes Diet: Advance to usual diet Activity on Discharge: As tolerated Stand Alone Forms: Patient Portal Discharge page Print Language: Hungarian Care Plan Goals: Continue BiPAP at home Follow up with pulmonology as needed Health Concerns: COPD exacerbation Plan of Treatment: Follow up with primary care provider as needed take all medications as prescribed Assessment: See discharge summary Discharge Date/Time: 12/21/24 11:41
--- NOTE | 2024-12-21 09:29 | MHC.CM.PN ---
pt dcd home self by connie with 02
[2024-12-21 11:34] VITALS: BP 145/77; PULSE 105; RESP 20; TEMP 36.1; O2SAT 95
[2024-12-21 11:47] LABS: Glucose, Whole Blood 133 mg/dL (60-115)
[2024-12-21 12:26] LABS: Glucose, Whole Blood 145 mg/dL (60-115)
--- NOTE | 2024-12-21 14:52 | P.CDIM_ITS ---
PROVIDER RESPONSE TEXT: To clarify, the appropriate diagnosis supported by the clinical indicators: Diabetes mellitus Type 2 with hyperglycemia: Definite QUERY TEXT: PHYSICIAN'S DOCUMENTATION REQUEST Date of Query: 12/21/2024 08:53 AM EDT Patient Name: Marika Scott Admit Date: 12/18/2024 Dear Macie Rhodes JEWELER APPRENTICE, A review of the medical record indicates additional documentation may be needed. Please review below and update the documentation accordingly. Clinical Indicators: LABS: POC glucose 331/286 T2DM Sliding scale. Diabetic diet. Please clarify if there is a diagnosis that correlates with the findings above: Diabetes mellitus Type 2 with hyperglycemia possible, probable, suspected, uncontrolled, poorly controlled etc. Other specified Other (explain) Clinically unable to determine (explain) Thank you, Brandi Lizama, CCS, CDIS Use of terms such as suspected, likely, concern for, or probable (associated with a specific diagnosis that is being evaluated, monitored, or treated as if it exists) are acceptable and can be coded in the inpatient setting, when documented at the time of discharge. Please use your independent medical judgment in providing your response. THIS QUERY IS PART OF THE PERMANENT MEDICAL RECORD
== END 2024-12-21 11:41 | disposition home or self-care (01) | DRG 140 ==
LOC: HO.ED 11:03 → HO.EDOVER 11:34 → HO.S3 11:50
PROVIDERS: Physician Assistant Medical; Admitting Provider Internal Medicine; Emergency Provider Emergency Medicine; PCP Nurse Practitioner Family; Visit Provider Nurse Practitioner Acute Care
DX: J44.1 Chronic obstructive pulmonary disease with (acute) exacerbation (principal); J96.21 Acute and chronic respiratory failure with hypoxia; I50.33 Acute on chronic diastolic (congestive) heart failure; J96.22 Acute and chronic respiratory failure with hypercapnia; G47.33 Obstructive sleep apnea (adult) (pediatric); K21.9 Gastro-esophageal reflux disease without esophagitis; G89.29 Other chronic pain; F39 Unspecified mood [affective] disorder; E11.65 Type 2 diabetes mellitus with hyperglycemia; F17.210 Nicotine dependence, cigarettes, uncomplicated; Z71.6 Tobacco abuse counseling; Z99.81 Dependence on supplemental oxygen; Z20.822 Contact with and (suspected) exposure to COVID-19; Z79.4 Long term (current) use of insulin; Z79.82 Long term (current) use of aspirin; Z79.899 Other long term (current) drug therapy
CPT/HCPCS: 0241U; 36415; 71045; 80048; 80076; 81001; 82803; 82947; 84484; 85025; 85610; 87086; 93005; 94640; 94660; 99221; 99285; J1650; J1885; J2919

== ENCOUNTER → 2024-12-18 08:20 | Outpatient (BNV) | payer OTHER, SELFPAY | PROVIDERS: Emergency Provider Emergency Medicine; PCP Nurse Practitioner Family; Visit Provider Radiology Diagnostic Radiology | DX: J84.9 Interstitial pulmonary disease, unspecified (principal) | CPT/HCPCS: 71045 ==

== ENCOUNTER → 2024-12-18 08:20 | Outpatient (BNV) | payer OTHER, SELFPAY | PROVIDERS: Admitting Provider Internal Medicine; Emergency Provider Emergency Medicine; PCP Nurse Practitioner Family; Visit Provider Internal Medicine Cardiovascular Disease | DX: I49.1 Atrial premature depolarization (principal); R00.0 Tachycardia, unspecified | CPT/HCPCS: 93010 ==

== ENCOUNTER → 2024-12-18 11:06 | Outpatient (BNV) | payer OTHER, SELFPAY | PROVIDERS: Admitting Provider Internal Medicine; Emergency Provider Emergency Medicine; PCP Nurse Practitioner Family; Visit Provider Nurse Practitioner Acute Care | DX: J44.1 Chronic obstructive pulmonary disease with (acute) exacerbation (principal) | CPT/HCPCS: 99223; 99232; 99239 ==

== ENCOUNTER 2024-12-30 16:01 | Emergency (ER) | payer OTHER, SELFPAY ==
--- NOTE | ~2024-12-30 | XR_ITS ---
CLINICAL HISTORY: sob 1 view chest x-ray Comparison: CR/SR - XR CHEST 1V - 12/18/24 08:30 EDT Findings: Mild blunting of the costophrenic angles and mild haziness at the lung bases suggesting small bilateral pleural effusions. No focal infiltrate. No pneumothorax. Moderate cardiomegaly. No acute fracture. IMPRESSION: Suspect small bilateral pleural effusions. This document has been electronically signed by: Ananda Charlton MD on 12/30/2024 19:30:26
[2024-12-30 16:11] VITALS: BP 132/46; BP 158/89; PULSE 75; PULSE 96; RESP 20; TEMP 36.8; O2SAT 96; O2SAT 99; BMI 34.3
--- NOTE | 2024-12-30 16:15 | ED.SOB ---
HPI - SOB/Dyspnea General Chief Complaint: Dyspnea Stated Complaint: SOB, WHEEZING, HX ASTHMA AND COPD Time Seen by Provider: 12/30/24 16:15 Source: patient Mode of arrival: ambulatory Limitations: no limitations History of Present Illness ED Provider: HPI Narrative: 54 yo f with a pmhx significant for COPD and chronic respiratory failure with hypoxia and hypercapnia on BiPAP at night, HENRY/OHS, HFpEF, diabetes mellitus, cocaine use disorder, and tobacco use disorder with frequent ED admissions for shortness a breath the discharged home on 12/21 for COPD exacerbation on currently tapering dose of prednisone taking 40 mg daily now comes here as after taking shower started feeling increased shortness of breath patient with a apparently doing much better since discharge her sister came to her home 2 days ago and she was coughing and today while in shower patient's became short of breath with cough no fever no chills patient does have mucopurulent phlegm patient has received 2 DuoNeb treatment prior to arrival saturating 94% at room air Related Data Home Medications ?Medication ?Instructions ?Recorded ?Confirmed sertraline 100 mg tablet 100 mg PO DAILY 11/12/24 12/18/24 sertraline 25 mg tablet 25 mg PO DAILY 11/12/24 12/18/24 tiotropium 2.5 mcg-olodaterol 2.5 2 puff inhalation DAILY 11/26/24 12/18/24 mcg/actuation mist for inhalation (Stiolto Respimat) insulin glargine 100 unit/mL (3 12 unit subcut BEDTIME 12/01/24 12/18/24 mL) subcutaneous pen (Lantus Solostar U-100 Insulin) aspirin 325 mg tablet 650 mg PO Q6H PRN Pain 12/18/24 12/18/24 quetiapine 50 mg tablet 50 mg PO BID 12/18/24 12/18/24 topiramate 25 mg tablet 50 mg PO BID 12/18/24 12/18/24 Previous Rx's ?Medication ?Instructions ?Recorded walker #1 ea 07/14/24 Rollator walker #1 ea 09/16/24 cane #1 ea 09/16/24 pulse oximeter #1 ea 09/16/24 FreeStyle Jemima 3 [place] #1 ea 09/22/24 (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,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,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) nicotine 21 mg/24 hr daily 1 patch transdermal Q24H #28 ea 10/01/24 transdermal patch tramadol 50 mg tablet 50 mg PO Q6H PRN pain #20 tabs 10/12/24 albuterol sulfate 2.5 mg/3 mL 2.5 mg (3 mL) inhalation Q4H PRN 11/09/24 (0.083 %) solution for nebulization Shortness Of Breath/Wheezing #180 mL albuterol sulfate 90 mcg/actuation 2 puff inhalation Q6H PRN for 11/09/24 aerosol inhaler (Ventolin HFA) wheezing #1 ea theophylline 400 mg 400 mg PO BID 90 days #180 tabs 11/09/24 tablet,extended release 24 hr acetaminophen 650 mg 650 mg PO Q12H PRN pain 30 days 11/12/24 tablet,extended release #60 tabs aspirin 81 mg tablet,delayed 81 mg PO DAILY 90 days #90 tabs 11/12/24 release atorvastatin 40 mg tablet 40 mg PO BEDTIME #90 tabs 11/12/24 blood sugar diagnostic (FreeStyle #100 ea 11/12/24 Lite Strips) 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 meter (FreeStyle #1 ea 11/12/24 Lite Meter kit) calcium 500 mg (as 1 tab PO DAILY #90 tabs 11/12/24 carbonate)-vitamin D3 10 mcg (400 unit) tablet esomeprazole magnesium 40 mg 40 mg PO DAILY@0630 #90 caps 11/12/24 capsule,delayed release fexofenadine 180 mg tablet 180 mg PO DAILY #30 tabs 11/12/24 (Elisabeth Allergy) furosemide 20 mg tablet 20 mg PO DAILY #90 tabs 11/12/24 glucose 4 gram chewable tablet 16 g (4 x 4 gram) PO Q15M PRN 11/12/24 hypoglycemia #100 tabs ibuprofen 800 mg tablet 800 mg PO BID PRN Headache 30 days 11/12/24 #60 tabs lancets 28 gauge (FreeStyle #100 ea 11/12/24 Lancets) losartan 50 mg tablet 50 mg PO DAILY #90 tabs 11/12/24 dextrose 40 % oral gel (Glucose 10 g PO Q15M PRN hypoglycemia #300 11/13/24 Gel) grams glucagon HCl 1 mg solution for 1 mg subcut Q20M PRN hypoglycemia 11/13/24 injection (Glucagon (HCl) #1 ea Emergency Kit) FreeStyle Jemima 3 Plus Sensor #2 ea 11/17/24 (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 sensor) naloxone 4 mg/actuation nasal 4 mg intranasal Q2M PRN opioid 11/27/24 spray (Narcan) overdose #2 ea pen needle, diabetic 31 gauge x #100 ea 11/30/24 5/16 tizanidine 4 mg tablet 4 mg PO Q12H muscle spasm 30 days 12/05/24 #60 tabs codeine 10 mg-guaifenesin 100 mg/5 5 ml PO Q6H PRN Cough #118 mL 12/21/24 mL oral liquid prednisone 10 mg tablet 40 mg (4 x 10 mg) PO DIRECTED 12/21/24 #120 tabs gabapentin 800 mg tablet 800 mg PO QID Pain 30 days #120 12/22/24 tabs codeine 10 mg-guaifenesin 100 mg/5 10 ml PO Q6H PRN cough #237 mL 12/30/24 mL oral liquid ipratropium 0.5 mg-albuterol 3 mg 3 ml inhalation TID #180 mL 12/30/24 (2.5 mg base)/3 mL nebulization soln Allergies Allergy/AdvReac Type Severity Reaction Status Date / Time doxycycline Allergy Severe Swelling Verified 12/30/24 16:15 varenicline (From CHANTIX) Allergy Severe ANAPHYLAXIS Verified 12/18/24 08:19 azithromycin Allergy Intermediate Rash Verified 12/18/24 08:19 barium sulfate Allergy Intermediate angioedema Verified 12/18/24 08:19 cetirizine Allergy Mild Rash Verified 12/18/24 08:19 famotidine Allergy Mild Rash Verified 12/18/24 08:19 linaclotide (Linzess) Allergy Mild Rash Verified 12/18/24 08:19 Review of Systems Review of Systems: Yes all other systems are reviewed and are negative PMFSH Past Medical History Medical History Chronic lung disease BAHMAN (generalized anxiety disorder) COPD (chronic obstructive pulmonary disease) Cocaine use disorder Cocaine abuse GERD (gastroesophageal reflux disease) Constipation Non-insulin dependent type 2 diabetes mellitus HENRY (obstructive sleep apnea) Acute exacerbation of chronic obstructive airways disease Asthma with exacerbation Obesity hypoventilation syndrome Chronic lung disease Hypoxic respiratory failure Nocturnal hypoxemia Diabetes mellitus COPD exacerbation Crack cocaine use Hyperkalemia Metabolic acidosis Leukocytosis Chest discomfort Chronic renal failure, stage 2 (mild) SOB (shortness of breath) Asthma Smoker Rotator cuff tendonitis GERD (gastroesophageal reflux disease) Chronic idiopathic constipation Bustos's esophagus Depression High triglycerides Gastroparesis Carpal tunnel syndrome of right wrist Nausea & vomiting Hernia Acute and chronic respiratory failure, unspecified whether with hypoxia or hypercapnia HTN (hypertension) Obesity (BMI 30-39.9) Knee pain, bilateral Surgical History History of cholecystectomy (~1988) History of carpal tunnel release Hx of tubal ligation History of pubovaginal sling (~2015) History of umbilical hernia repair (~2001) Hx of section History of open reduction and internal fixation (ORIF) procedure History of esophagogastroduodenoscopy (EGD) Family History Family History Father Heart disease HENRY (obstructive sleep apnea) Family history of breast cancer Mother Asthma Emphysema, unspecified Bronchitis Smoker Alcoholism Bone marrow disease Maternal Grandmother Diabetes Social History Social History Household Members: Family Household Members Other:: sister; lives on 3rd floor Housing: House Are you a primary physician locums urgent care to a significant other at home: No Do you presently have visiting nurse or other home services: Yes (reinaldo DUTTA) Unable to assess alcohol history related to: Unknown Alcohol intake: never Comment: Sleeping Patient Tobacco Use Status: Current everyday Tobacco user Tobacco use type: Cigarette Cigarette Packs Per Day: 0.5 Cigarettes Per Day: 10 Years Smoked: 40 e-Cigarette/Vaping Use: Currently Using Second Hand Smoke Exposure: Yes Substance Use Type: Crack/Cocaine Advance Directives Date on File: 12/19/23 service: No Current occupational status: disabled 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 Oriented X3. Moderate respiratory distress. Eyes: PERRLA, No Nystagmus ENT: Pharynx normal. Oral Mucosa moist Neck: Normal inspection. Neck supple. CVS: Normal heart rate and rhythm. Pulses normal. Respiratory: ++respiratory distress. Equal air entry bilateral, no wheezing/rales/rhonchi Abdomen: Soft and nontender. Bowel sounds are present, no mass palpable, no CVA tenderness Skin: Skin warm and dry. Normal skin color. Normal skin turgor. Extremities: No lower extremity edema. No calf tenderness Neuro: Oriented X 3. No motor deficit. No sensory deficit.No cerebellar signs , cranial nerves II-XII intact Medications Administered Discontinued Medications Generic Name Dose Route Start Last Admin Trade Name Freq PRN Reason Stop Dose Admin Levalbuterol HCl 2.5 mg/ 0 mg 12/30/24 16:40 12/30/24 16:50 Ipratropium [place] 0.5 mg INHALE 12/30/24 16:41 1 dose ONCE ONE Administration Magnesium Sulfate 2 gm in 50 mls @ 150 mls/hr 12/30/24 18:06 12/30/24 19:06 Magnesium Sulfate/H2o IV 12/30/24 18:25 Infused ONCE ONE Infusion Sodium Chloride 1,000 mls @ 999 mls/hr 12/30/24 18:36 12/30/24 20:00 Ns IV 12/30/24 19:36 Infused .Q1H1M ONE Infusion Methylprednisolone Sodium Succinate 125 mg 12/30/24 18:06 12/30/24 18:47 Methylprednisolone Sod Succ 125 Mg/2 Ml Vial IVPUSH 12/30/24 18:07 125 mg ONCE ONE Administration Morphine Sulfate 4 mg 12/30/24 18:04 12/30/24 18:47 Morphine Sulfate 4 Mg/Ml Cartridge IVPUSH 12/30/24 18:05 4 mg ONCE ONE Administration Protocol Ondansetron HCl 4 mg 12/30/24 18:04 12/30/24 18:47 Ondansetron Hcl 4 Mg/2 Ml Vial IVPUSH 12/30/24 18:05 4 mg ONCE ONE Administration Potassium Bicarbonate 25 meq 12/30/24 20:36 12/30/24 20:57 Potassium Bicarbonate/Cit Ac 25 Meq Tablet.Eff PO 12/30/24 20:37 25 meq ONCE ONE Administration Medical Decision Making Medical Decision Making [facility] Narrative: 54 yo f with a pmhx significant for COPD and chronic respiratory failure with hypoxia and hypercapnia on BiPAP at night, HENRY/OHS, HFpEF, diabetes mellitus, cocaine use disorder, and tobacco use disorder with frequent ED admissions for shortness a breath the discharged home on 12/21 for COPD exacerbation on currently tapering dose of prednisone taking 40 mg daily now comes here as after taking shower started feeling increased shortness of breath workup showed normal chest x-ray without any infiltrate received nebulizing treatment IV steroid and magnesium patient is feeling much better at this time speaking full sentences saturating 93% at room air will discharge patient home advised to follow up with the PCP Differential Diagnosis Differential Diagnoses: The differential diagnosis associated with the presentation includes Admission/Observation Consideration of admission/observation: Escalation of care including admission/observation considered Lab Data [facility] Lab Attestation statement: I reviewed the patient's lab results. 12/30/24 16:51 12/30/24 16:51 Labs: Lab Results 12/30/24 12/30/24 Range/Units 16:51 16:57 WBC 15.5 H (4.8-10.8) X10*3/uL RBC 4.62 (4.20-5.50) X10*6/uL Hgb 9.9 L (12.0-16.0) g/dl Hct 33.6 L (37.0-47.0) % MCV 72.7 L (80.0-98.0) fL MCH 21.4 L (27.0-33.0) pg MCHC 29.5 L (31.0-35.0) g/dl RDW 17.6 H (11.0-16.0) % Plt Count 423 H D (160-400) X10*3/uL MPV 8.9 L (9.4-12.3) fL Immature Gran % (Auto) 0.7 H (0.0-0.4) % Neut % (Auto) 87.1 H (45-73) % Lymph % (Auto) 8.1 L (20-40) % [place] % (Auto) 4.0 (2-11) % Eos % (Auto) 0.0 (0-4) % Baso % (Auto) 0.1 (0-2) % Lymph # (Auto) 1.3 (1.2-4.9) X10*3/uL [place] # (Auto) 0.6 (0.1-1.2) X10*3/uL Eos # (Auto) 0.0 (0.0-0.4) X10*3/uL Baso # (Auto) 0.0 (0.0-0.2) X10*3/uL Abs Immat Gran (auto) 0.11 H (0.00-0.03) X10*3/uL Absolute Neuts (auto) 13.5 H (2.0-8.3) x10*3/uL Absolute Nucleated RBC 0.000 (0.0-0.012) X10*3/uL Nucleated RBC % (auto) 0.0 (0.0-0.2) /100WBC VBG pH 7.41 (7.32-7.43) VBG pCO2 40 mmHg VBG pO2 58 mmHg VBG HCO3 26 (22-26) mmol/L VBG O2 Saturation 88.0 % VBG Base Excess 1.9 mmol/L Sodium 141 (135-145) mmol/L Potassium 3.1 L (3.3-5.1) mmol/L Chloride 104 (96-108) mmol/L Carbon Dioxide 25 (22-29) mmol/L Anion Gap 15 (12-20) BUN 20 H (9-16) mg/dL Creatinine 0.96 (0.5-1.4) mg/dL Estim Creat Clear Calc 58.6 Estimated GFR > 60 Random Glucose 273 H (60-115) mg/dL Calcium 8.6 (8.4-10.2) mg/dL Total Bilirubin 0.2 (0.0-1.0) mg/dL AST 11 (5-31) U/L ALT 13 (0-31) U/L Alkaline Phosphatase 73 (39-117) U/L Total Protein 6.1 L (6.5-8.0) g/dL Albumin 3.9 (3.5-5.0) g/dL Influenza Type A (PCR) NEGATIVE (Negative) Influenza Type B (PCR) NEGATIVE (Negative) RSV RNA Qual (PCR) NEGATIVE (Negative) SARS-CoV-2 RNA (RT-PCR) NEGATIVE (Negative) Independent Interpretation I performed an independent interpretation of an: EKG Interpretation: Sinus tachycardia with heart rate 119 beats per minute right axis deviation poor progression of R-wave no acute STT T-waves in changes no acute ischemia Radiology Impression Discussion of test interpretation with radiology: I have reviewed the radiologist's reading. Discharge Plan Discharge Clinical Impression: Acute exacerbation of chronic obstructive airways disease, Acute bronchospasm Patient Disposition: Home, Self-Care Instructions: COPD (Chronic Obstructive Pulmonary Disease) (ED), Chronic Bronchitis (ED) Additional Instructions: Continue take your medications as prescribed by your PCP Use nebulizer and oxygen as needed Follow up with your PCP Prescriptions: New codeine-guaifenesin 10-100 mg/5 mL liquid 10 ml PO Q6H PRN (Reason: cough) Qty: 237 0RF No Action (DME) cane Device See Rx Instructions .Route Qty: 1 0RF Rx Instructions: Standard cane (DME) Rollator walker See Rx Instructions .Route .MEDSUPPLY Qty: 1 0RF Rx Instructions: As directed (DME) pulse oximeter See Rx Instructions .Route .MEDSUPPLY Qty: 1 0RF Rx Instructions: As directed (DME) FreeStyle Jemima 3 [place] Misc See Rx Instructions .Route Qty: 1 0RF Rx Instructions: To monitor blood sugar 4 times per day albuterol sulfate 2.5 mg /3 mL (0.083 %) solution for nebulization 2.5 mg inhalation Q4H PRN (Reason: Shortness Of Breath/Wheezing) Qty: 180 6RF theophylline 400 mg tablet extended release 24 hr 400 mg PO BID 90 Days Qty: 180 4RF albuterol sulfate [Ventolin HFA] 90 mcg/actuation HFA aerosol inhaler 2 puff inhalation Q6H PRN (Reason: for wheezing) Qty: 1 6RF acetaminophen 650 mg tablet extended release 650 mg PO Q12H PRN (Reason: pain) 30 Days Qty: 60 0RF aspirin 81 mg tablet,delayed release (DR/EC) 81 mg PO DAILY 90 Days Qty: 90 1RF atorvastatin 40 mg tablet 40 mg PO BEDTIME Qty: 90 0RF (DME) FreeStyle Lite Strips Strip See Rx Instructions .ROUTE .MEDSUPPLY Qty: 100 1RF Rx Instructions: Use to check blood sugar daily or if symptomatic hypo/hypergylcemia calcium carbonate-vitamin D3 500 mg-10 mcg (400 unit) tablet 1 tab PO DAILY Qty: 90 0RF (DME) 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 meter [FreeStyle Lite Meter] Kit See Rx Instructions .ROUTE .MEDSUPPLY Qty: 1 0RF Rx Instructions: Use to check blood sugar daily or if symptomatic for hypo/hyperglycemia esomeprazole magnesium 40 mg capsule,delayed release(DR/EC) 40 mg PO DAILY@0630 Qty: 90 1RF fexofenadine [Elisabeth Allergy] 180 mg tablet 180 mg PO DAILY Qty: 30 3RF furosemide 20 mg tablet 20 mg PO DAILY Qty: 90 3RF glucose 4 gram tablet,chewable 16 g PO Q15M MDD 8 tabs PRN (Reason: hypoglycemia) Qty: 100 1RF Rx Instructions: until symptoms of low blood sugar are controlled ibuprofen 800 mg tablet 800 mg PO BID PRN (Reason: Headache) 30 Days Qty: 60 0RF Rx Instructions: please use sparingly due to diabetes (DME) lancets [FreeStyle Lancets] 28 gauge misc See Rx Instructions .ROUTE .MEDSUPPLY Qty: 100 1RF Rx Instructions: Use to check blood sugar daily or if symptomatic hypo/hypergylcemia losartan 50 mg tablet 50 mg PO DAILY Qty: 90 0RF (DME) FreeStyle Jemima 3 Plus Sensor Device See Rx Instructions .Route Qty: 2 5RF Rx Instructions: To monitor blood sugars 4 times per day. Change sensor every 15 days (DME) pen needle, diabetic 31 gauge x 5/16 needle See Rx Instructions .Route Qty: 100 0RF Rx Instructions: Use to inject insulin once a day tizanidine 4 mg tablet 4 mg PO Q12H 30 Days Qty: 60 0RF Rx Instructions: do not take concurrently with famotidine gabapentin 800 mg tablet 800 mg PO QID 30 Days Qty: 120 1RF ipratropium-albuterol 0.5 mg-3 mg(2.5 mg base)/3 mL solution for nebulization 3 ml INHALATION TID Qty: 180 0RF (DME) mary anne Misc See Rx Instructions .Route Qty: 1 0RF Rx Instructions: As directed sertraline 25 mg tablet 25 mg PO DAILY Rx Instructions: Taken with 100mg tab for TDD of 125mg. sertraline 100 mg tablet 100 mg PO DAILY Rx Instructions: TAKE WITH 25MG FOR TOTAL OF 125MG dextrose [Glucose Gel] 40 % gel 10 g PO Q15M PRN (Reason: hypoglycemia) Qty: 300 0RF Rx Instructions: until symptoms of low blood sugar are controlled glucagon HCl [Glucagon (HCl) Emergency Kit] 1 mg recon soln 1 mg subcut Q20M PRN (Reason: hypoglycemia) Qty: 1 0RF Rx Instructions: until target blood sugar attained Stiolto Respimat 2.5-2.5 mcg/actuation mist 2 puff inhalation DAILY naloxone [Narcan] 4 mg/actuation spray,non-aerosol 4 mg intranasal Q2M PRN (Reason: opioid overdose) Qty: 2 0RF Rx Instructions: spray 1 dose into ONE nostril; alternate nostrils w each dose until help arrives insulin glargine [Lantus Solostar U-100 Insulin] 100 unit/mL (3 mL) insulin pen 12 unit subcut BEDTIME quetiapine 50 mg tablet 50 mg PO BID topiramate 25 mg tablet 50 mg PO BID Rx Instructions: take one tab twice daily for one week, then increase to 2 tabs twice daily aspirin 325 mg Tablet 650 mg PO Q6H PRN (Reason: Pain) codeine-guaifenesin 10-100 mg/5 mL Liquid 5 ml PO Q6H PRN (Reason: Cough) Qty: 118 0RF prednisone 10 mg tablet 40 mg PO DIRECTED Qty: 120 0RF Rx Instructions: see taper instructions nicotine 21 mg/24 hr patch 24 hour 1 patch transdermal Q24H Qty: 28 0RF tramadol 50 mg tablet 50 mg PO Q6H PRN (Reason: pain) Qty: 20 0RF Interventions: ED Discharge Assessment Last Done: 12/30/24 21:05 Discharge Date/Time: 12/30/24 21:05 Print Language: Chadian
--- NOTE | 2024-12-30 16:18 | ECG_ITS ---
Test Reason : SOB Blood Pressure : */* mmHG Vent. Rate : 119 BPM Atrial Rate : 119 BPM P-R Int : 124 ms QRS Dur : 86 ms QT Int : 342 ms P-R-T Axes : 35 149 40 degrees QTcB Int : 481 ms Sinus tachycardia with occasional Premature ventricular complexes Right axis deviation Low voltage QRS Cannot rule out Anterior infarct , age undetermined Abnormal ECG When compared with ECG of 18-Dec-2024 08:23, Premature ventricular complexes are now Present Premature supraventricular complexes are no longer Present Referred By: Ok Griffith Electronically Signed By: PAUL VARGAS MD
--- NOTE | 2024-12-30 16:33 | PC.NURSE ---
pt comes to ED with reports of feeling generally unwell for a couple of days and feeling like she was going to pass out today in the shower. She uses PRN O2 at home, and home nebs. She has had a cough at home with yellow sputum. Currently on a 40mg prednisone scrips from a recent DC from here. Lung sounds - left diminished, right expiratory wheezing. afib on tele. no edema in lower extremities. Speaking in full and complete sentences. States she feels better than when she first called EMS< did receive 2x duonebs in transit.
[2024-12-30 16:50] VITALS: PULSE 114; RESP 15; O2SAT 94
[2024-12-30] MEDS: levalbuterol HCL 2.5 MG, Ipratropium Bromide 0.5 MG INHALE (16:50)
[2024-12-30 16:56] LABS: MANUAL DIFF FLAG NO
[2024-12-30 16:58] LABS: Hematocrit 33.6 % (37.0-47.0); Hemoglobin 9.9 g/dl (12.0-16.0); Imm Gran Abs Auto 0.11 X10*3/uL (0.00-0.03); Imm Gran Pct Auto 0.7 % (0.0-0.4); Lymphocytes Absolute Auto 1.3 X10*3/uL (1.2-4.9); Mean Corpuscular HGB Conc 29.5 g/dl (31.0-35.0); Mean Corpuscular Hemoglobin 21.4 pg (27.0-33.0); Mean Corpuscular Volume 72.7 fL (80.0-98.0); NRBC Abs Auto 0.000 X10*3/uL (0.0-0.012); NRBC Pct Auto 0.0 /100WBC (0.0-0.2); Platelet Count 423 X10*3/uL (160-400); Red Blood Count 4.62 X10*6/uL (4.20-5.50); White Blood Count 15.5 X10*3/uL (4.8-10.8)
[2024-12-30 17:06] LABS: VBG HCO3 26 mmol/L (22-26); VBG O2 % Saturation 88.0 %
[2024-12-30 17:10] LABS: Venous Blood Gas Refer to POC result
[2024-12-30 17:14] LABS: Alanine Aminotransferase 13 U/L (0-31); Albumin Level 3.9 g/dL (3.5-5.0); Alkaline Phosphatase 73 U/L (39-117); Anion Gap 15 (12-20); Aspartate Amino Transferase 11 U/L (5-31); Blood Urea Nitrogen 20 mg/dL (9-16); Calcium 8.6 mg/dL (8.4-10.2); Carbon Dioxide 25 mmol/L (22-29); Chloride 104 mmol/L (96-108); Creatinine Clr Calc Pharmacy 58.6; Estimated Glomerular Filt Rate > 60; Potassium 3.1 mmol/L (3.3-5.1); Sodium 141 mmol/L (135-145); Total Protein 6.1 g/dL (6.5-8.0)
[2024-12-30 17:54] VITALS: BP 134/59; PULSE 116; RESP 15; TEMP 36.7; O2SAT 94
[2024-12-30] MEDS: Magnesium Sulfate/H2O 2 GM/50 ML PIGGYBACK IV (18:47)
[2024-12-30 19:27] VITALS: BP 124/69; PULSE 110; RESP 15; TEMP 36.6; O2SAT 93
[2024-12-30 20:01] LABS: Resp Syncy Virus RNA Qual PCR NEGATIVE (Negative); SARS COV2 PCR INHOUSE NEGATIVE (Negative)
[2024-12-30] MEDS: Potassium Bicarbonate/Cit AC 25 MEQ TABLET.EFF PO (20:57)
[2024-12-30 21:05] VITALS: BP 124/69; PULSE 110; RESP 15; TEMP 36.6; O2SAT 95
== END 2024-12-30 21:05 | disposition home or self-care (01) ==
PROVIDERS: Emergency Provider Internal Medicine; PCP Nurse Practitioner Family
DX: J44.1 Chronic obstructive pulmonary disease with (acute) exacerbation (principal); J98.01 Acute bronchospasm; R06.02 Shortness of breath; Z03.818 Encounter for observation for suspected exposure to other biological agents ruled out
CPT/HCPCS: 36415; 71045; 80053; 82803; 85025; 87637; 93005; 94640; 96361; 96374; 96375; 99284; 99285; J2270; J2405; J2919; J3475

== ENCOUNTER → 2024-12-30 16:18 | Outpatient (BNV) | payer OTHER, SELFPAY | PROVIDERS: Emergency Provider Internal Medicine; PCP Nurse Practitioner Family; Visit Provider Internal Medicine Cardiovascular Disease | DX: I49.3 Ventricular premature depolarization (principal); R00.0 Tachycardia, unspecified | CPT/HCPCS: 93010 ==

== ENCOUNTER → 2024-12-30 18:21 | Outpatient (BNV) | payer OTHER, SELFPAY | PROVIDERS: Emergency Provider Internal Medicine; PCP Nurse Practitioner Family; Visit Provider Radiology Diagnostic Radiology | DX: R06.02 Shortness of breath (principal) | CPT/HCPCS: 71045 ==

== ENCOUNTER 2024-12-31 20:50 | Inpatient (IN) | payer OTHER, SELFPAY ==
--- NOTE | ~2024-12-31 | XR_ITS ---
CLINICAL HISTORY: sob 1 view chest Comparison: CR - XR CHEST 1V - 12/30/24 18:36 EDT Findings: Cardiac and mediastinal contours are normal. Mild interstitial prominence with scattered peribronchial thickening. No focal consolidation. No effusion. No pneumothorax. No acute osseous finding. Impression: Mild interstitial prominence with scattered peribronchial thickening. No focal consolidation. This document has been electronically signed by: Codey Menard MD on 12/31/2024 21:48:37
[2024-12-31 20:57] VITALS: BP 136/77; PULSE 78; O2SAT 97; BMI 34.9
--- NOTE | 2024-12-31 21:03 | ECG_ITS ---
Test Reason : SOB Blood Pressure : */* mmHG Vent. Rate : 107 BPM Atrial Rate : 107 BPM P-R Int : 116 ms QRS Dur : 92 ms QT Int : 354 ms P-R-T Axes : 76 151 54 degrees QTcB Int : 472 ms Sinus tachycardia with Premature atrial complexes with Aberrant conduction Right axis deviation Possible Right ventricular hypertrophy Abnormal ECG When compared with ECG of 30-Dec-2024 16:20, Premature ventricular complexes are no longer Present Aberrant conduction is now Present Referred By: Ly Bazan Electronically Signed By: PAUL VARGAS MD
[2024-12-31 21:10] VITALS: BP 107/62; PULSE 106; RESP 20; TEMP 36.7; O2SAT 93
--- NOTE | 2024-12-31 21:18 | ED.SOB ---
HPI - SOB/Dyspnea General Chief Complaint: Dyspnea Stated Complaint: diff breathing x30 mins Time Seen by Provider: 12/31/24 21:02 Source: patient and EMS Mode of arrival: EMS Limitations: no limitations History of Present Illness ED Provider: Dr. Ly Bazan HPI Narrative: patient comes to the emergency room via EMS from home. According to the patient and EMS, earlier today patient took a nap answered complaining of shortness of breath. According to EMS, patient's oxygen saturation was in the low 80s on her usual 2 L nasal cannula. In the ambulance, patient got DuoNeb and Solu-Medrol. On arrival to the emergency room, patient states that she is feeling a bit better but still feels that she is not quite right. Patient states that she has been short of breath all day since the morning but it just got worse after her nap. Denies chest pain. Patient states that what bothers her the most is the cough. Patient states that she is currently on a prednisone taper but instead of getting better, seems that her breathing has been getting worse. Related Data Home Medications ?Medication ?Instructions ?Recorded ?Confirmed sertraline 100 mg tablet 100 mg PO DAILY 11/12/24 12/18/24 sertraline 25 mg tablet 25 mg PO DAILY 11/12/24 12/18/24 tiotropium 2.5 mcg-olodaterol 2.5 2 puff inhalation DAILY 11/26/24 12/18/24 mcg/actuation mist for inhalation (Stiolto Respimat) insulin glargine 100 unit/mL (3 12 unit subcut BEDTIME 12/01/24 12/18/24 mL) subcutaneous pen (Lantus Solostar U-100 Insulin) aspirin 325 mg tablet 650 mg PO Q6H PRN Pain 12/18/24 12/18/24 quetiapine 50 mg tablet 50 mg PO BID 12/18/24 12/18/24 topiramate 25 mg tablet 50 mg PO BID 12/18/24 12/18/24 Previous Rx's ?Medication ?Instructions ?Recorded walker #1 ea 07/14/24 Rollator walker #1 ea 09/16/24 cane #1 ea 09/16/24 pulse oximeter #1 ea 09/16/24 FreeStyle Jemima 3 [place] #1 ea 09/22/24 (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,crm administrator,cont) nicotine 21 mg/24 hr daily 1 patch transdermal Q24H #28 ea 10/01/24 transdermal patch tramadol 50 mg tablet 50 mg PO Q6H PRN pain #20 tabs 10/12/24 albuterol sulfate 2.5 mg/3 mL 2.5 mg (3 mL) inhalation Q4H PRN 11/09/24 (0.083 %) solution for nebulization Shortness Of Breath/Wheezing #180 mL albuterol sulfate 90 mcg/actuation 2 puff inhalation Q6H PRN for 11/09/24 aerosol inhaler (Ventolin HFA) wheezing #1 ea theophylline 400 mg 400 mg PO BID 90 days #180 tabs 11/09/24 tablet,extended release 24 hr acetaminophen 650 mg 650 mg PO Q12H PRN pain 30 days 11/12/24 tablet,extended release #60 tabs aspirin 81 mg tablet,delayed 81 mg PO DAILY 90 days #90 tabs 11/12/24 release atorvastatin 40 mg tablet 40 mg PO BEDTIME #90 tabs 11/12/24 blood sugar diagnostic (FreeStyle #100 ea 11/12/24 Lite Strips) 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 meter (FreeStyle #1 ea 11/12/24 Lite Meter kit) calcium 500 mg (as 1 tab PO DAILY #90 tabs 11/12/24 carbonate)-vitamin D3 10 mcg (400 unit) tablet esomeprazole magnesium 40 mg 40 mg PO DAILY@0630 #90 caps 11/12/24 capsule,delayed release fexofenadine 180 mg tablet 180 mg PO DAILY #30 tabs 11/12/24 (Elisabeth Allergy) furosemide 20 mg tablet 20 mg PO DAILY #90 tabs 11/12/24 glucose 4 gram chewable tablet 16 g (4 x 4 gram) PO Q15M PRN 11/12/24 hypoglycemia #100 tabs ibuprofen 800 mg tablet 800 mg PO BID PRN Headache 30 days 11/12/24 #60 tabs lancets 28 gauge (FreeStyle #100 ea 11/12/24 Lancets) losartan 50 mg tablet 50 mg PO DAILY #90 tabs 11/12/24 dextrose 40 % oral gel (Glucose 10 g PO Q15M PRN hypoglycemia #300 11/13/24 Gel) grams glucagon HCl 1 mg solution for 1 mg subcut Q20M PRN hypoglycemia 11/13/24 injection (Glucagon (HCl) #1 ea Emergency Kit) FreeStyle Jemima 3 Plus Sensor #2 ea 11/17/24 (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 sensor) naloxone 4 mg/actuation nasal 4 mg intranasal Q2M PRN opioid 11/27/24 spray (Narcan) overdose #2 ea pen needle, diabetic 31 gauge x #100 ea 11/30/24 5/16 tizanidine 4 mg tablet 4 mg PO Q12H muscle spasm 30 days 12/05/24 #60 tabs codeine 10 mg-guaifenesin 100 mg/5 5 ml PO Q6H PRN Cough #118 mL 12/21/24 mL oral liquid prednisone 10 mg tablet 40 mg (4 x 10 mg) PO DIRECTED 12/21/24 #120 tabs gabapentin 800 mg tablet 800 mg PO QID Pain 30 days #120 12/22/24 tabs codeine 10 mg-guaifenesin 100 mg/5 10 ml PO Q6H PRN cough #237 mL 12/30/24 mL oral liquid ipratropium 0.5 mg-albuterol 3 mg 3 ml inhalation TID #180 mL 12/30/24 (2.5 mg base)/3 mL nebulization soln Allergies Allergy/AdvReac Type Severity Reaction Status Date / Time doxycycline Allergy Severe Swelling Verified 12/31/24 21:02 varenicline (From CHANTIX) Allergy Severe ANAPHYLAXIS Verified 12/31/24 21:02 azithromycin Allergy Intermediate Rash Verified 12/31/24 21:02 barium sulfate Allergy Intermediate angioedema Verified 12/31/24 21:02 cetirizine Allergy Mild Rash Verified 12/31/24 21:02 famotidine Allergy Mild Rash Verified 12/31/24 21:02 linaclotide (Linzess) Allergy Mild Rash Verified 12/31/24 21:02 Review of Systems Review of Systems: Constitutional : No Weight loss, No Fever, No Chills, No Night Sweats, No Fatigue, No Malaise ENT/Mouth : No Hearing loss, No Ear Pain, No Nasal Congestion, No Sinus Pain, No Hoarseness, No sore throat, No Rhinorrhea, No Swallowing Difficulty Eyes: No Eye Pain, No Swelling, No Redness, No Foreign Body, No Discharge, No Vision Changes Cardiovascular : No Chest Pain, complaining of dyspnea on exertion with chest tightness and wheezing, no palpitations Respiratory : complaining of cough, wheezing, shortness of breath Gastrointestinal : No Nausea, No Vomiting, No Diarrhea, No Constipation, No abdominal Pain, No Hematochezia, No Melena Genitourinary : no irregular bleeding, No Dysuria, No Urinary Frequency, No Hematuria, No Urinary Incontinence, No Urgency, No Flank Pain, No Urinary Flow Changes, No Hesitancy Musculoskeletal : No joint pain, No Myalgias, No Joint Swelling Skin : No Skin Lesions, No rash Neuro : No Weakness, No Numbness, No Paresthesias, No Loss of Consciousness, No Dizziness, No Headache Psych : No Anxiety/Panic, No Depression, No SI/HI/AH/VH, No Social Issues, Heme/Lymph: No Bruising, No Bleeding,No Lymphadenopathy Endocrine : No Polyuria, No Polydipsia, No Temperature Intolerance [facility] Past Medical History Medical History Chronic lung disease BAHMAN (generalized anxiety disorder) COPD (chronic obstructive pulmonary disease) Cocaine use disorder Cocaine abuse GERD (gastroesophageal reflux disease) Constipation Non-insulin dependent type 2 diabetes mellitus HENRY (obstructive sleep apnea) Acute exacerbation of chronic obstructive airways disease Asthma with exacerbation Obesity hypoventilation syndrome Chronic lung disease Hypoxic respiratory failure Nocturnal hypoxemia Diabetes mellitus COPD exacerbation Crack cocaine use Hyperkalemia Metabolic acidosis Leukocytosis Chest discomfort Chronic renal failure, stage 2 (mild) SOB (shortness of breath) Asthma Smoker Rotator cuff tendonitis GERD (gastroesophageal reflux disease) Chronic idiopathic constipation Bustos's esophagus Depression High triglycerides Gastroparesis Carpal tunnel syndrome of right wrist Nausea & vomiting Hernia Acute and chronic respiratory failure, unspecified whether with hypoxia or hypercapnia HTN (hypertension) Obesity (BMI 30-39.9) Knee pain, bilateral Surgical History History of cholecystectomy (~1988) History of carpal tunnel release Hx of tubal ligation History of pubovaginal sling (~2015) History of umbilical hernia repair (~2001) Hx of section History of open reduction and internal fixation (ORIF) procedure History of esophagogastroduodenoscopy (EGD) Family History Family History Father Heart disease HENRY (obstructive sleep apnea) Family history of breast cancer Mother Asthma Emphysema, unspecified Bronchitis Smoker Alcoholism Bone marrow disease Maternal Grandmother Diabetes Social History Social History Household Members: Family Household Members Other:: sister; lives on 3rd floor Housing: House Are you a primary adult care manager to a significant other at home: No Do you presently have visiting nurse or other home services: Yes (reinaldo DUTTA) Unable to assess alcohol history related to: Unknown Alcohol intake: never Comment: Sleeping Patient Tobacco Use Status: Current everyday Tobacco user Tobacco use type: Cigarette Cigarette Packs Per Day: 0.5 Cigarettes Per Day: 10 Years Smoked: 40 e-Cigarette/Vaping Use: Currently Using Second Hand Smoke Exposure: Yes Substance Use Type: Crack/Cocaine Advance Directives: Yes Advance Directives on File: Yes Advance Directives Date on File: 12/19/23 service: No Current occupational status: disabled 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 Physical Exam Vital Signs: Vital Signs: Last Vital Signs Pulse 100 12/31/24 22:04 Resp 24 H 12/31/24 22:04 BMI result Body Mass Index 34.9 Const: Other: Appearance: Alert. Oriented X3. No acute distress. Eyes: Pupils equal, round and reactive to light. ENT: Pharynx normal. Neck: Normal inspection. Neck supple. No lymph nodes noted. No crepitus CVS: Normal heart rate and rhythm. Pulses normal. Normal S1 and S2 Respiratory: No respiratory distress. oxygen saturation 98% on 2 L nasal cannula, bilateral wheezing, moderate air movement Abdomen: Soft and nontender. No rigidity. No distention. Skin: Skin warm and dry. Normal skin color. Normal skin turgor. Extremities: No lower extremity edema. No Lacerations. No Rash Neuro: Oriented X 3. No motor deficit. No sensory deficit. Moving all extremities. No slurred speech. CN 2 through 12 grossly intact Psych: calm, cooperative, normal affect Course Course Course Narrative: Patient complaining of coughing, wheezing. Patient was seen here yesterday for similar complaint. Patient states that she feels very scared to go back home tonight due to her shortness of breath. Given patient's past medical history and recent ER visit, we will go ahead and start treating empirically with IV fluids and antibiotics based on ideal weight of 45 kg, patient is obese. All of patient's labs, imaging, EKG and vitals are pending Medications Administered Generic Name Dose Route Start Last Admin Trade Name Freq PRN Reason Stop Dose Admin Guaifenesin/Codeine Phosphate 5 ml 12/31/24 21:22 12/31/24 22:00 Guaifen/Codeine Sf 200/20/10ml 10 Ml Liquid PO 5 ml Q4H PRN Administration Cough Magnesium Sulfate 2 gm in 50 mls @ 25 mls/hr 12/31/24 21:12 12/31/24 22:07 Magnesium Sulfate/H2o IV 12/31/24 23:11 25 mls/hr ONCE ONE Administration Discontinued Medications Generic Name Dose Route Start Last Admin Trade Name Freq PRN Reason Stop Dose Admin Albuterol Sulfate 5 mg/ 0 mg 12/31/24 21:57 12/31/24 22:01 Albuterol/Ipratropium 3 ml INHALE 12/31/24 21:58 1 each ONCE ONE Administration Sodium Chloride 1,500 mls @ 999 mls/hr 12/31/24 21:12 12/31/24 22:02 Ns IVCONT 12/31/24 22:42 999 mls/hr .Q1H31M ONE Administration Levofloxacin 500 mg in 100 mls @ 100 mls/hr 12/31/24 21:16 12/31/24 22:07 Levaquin IV 12/31/24 22:15 100 mls/hr ONCE ONE Administration Methylprednisolone Sodium Succinate 125 mg 12/31/24 21:12 12/31/24 22:19 Methylprednisolone Sod Succ 125 Mg/2 Ml Vial IVPUSH 12/31/24 21:13 Not Given ONCE ONE Medical Decision Making Medical Decision Making [facility] Narrative: my interpretation of EKG: Sinus rhythm, heart rate 107, no ST segment depression or elevation, no T-wave inversion, QTC 472 my interpretation of labs: Patient's white blood cell count 16.9, patient has chronic leukocytosis and is currently on a prednisone taper. No significant abnormality in patient's chemistry, lactic acid 1.3, serology negative, troponin 26.4, chronic and at baseline. Patient's serology negative for influenza, COVID, RSV. Chest x-ray does not show any infiltrates. Patient likely has a unless exacerbation Rather than pneumonia. However, patient got empirically treated with IV fluids and antibiotics given her past medical history and frequent hospitalizations. Overall, at this time patient is saturating in the 90s on 2 L which is patient's baseline. Patient does have chronic wheezing. if this would be patient's 1st ED visit, she would be discharged home. However, same thing happened yesterday and she ended up returning to the emergency room. I discussed the patient with Dr. Houston from the Medicine team, patient being admitted later today, patient will be placed on CPAP, patient uses CPAP at home Differential Diagnosis Differential Diagnoses: The differential diagnosis associated with the presentation includes ( asthma exacerbation, COPD, chronic lung disease, pneumonia) Admission/Observation Consideration of admission/observation: Escalation of care including admission/observation considered Consult Healthcare Provider Management of the patient was discussed with: Hospitalist Lab Data MDM Lab Attestation statement: I reviewed the patient's lab results. 12/31/24 21:32 12/31/24 21:32 Labs: Lab Results 12/31/24 12/31/24 12/31/24 Range/Units 21:13 21:31 21:32 WBC 16.9 H (4.8-10.8) X10*3/uL RBC 4.67 (4.20-5.50) X10*6/uL Hgb 9.8 L (12.0-16.0) g/dl Hct 33.6 L (37.0-47.0) % MCV 71.9 L (80.0-98.0) fL MCH 21.0 L (27.0-33.0) pg MCHC 29.2 L (31.0-35.0) g/dl RDW 17.6 H (11.0-16.0) % Plt Count 404 H (160-400) X10*3/uL MPV 8.7 L (9.4-12.3) fL Immature Gran % (Auto) 0.6 H (0.0-0.4) % Neut % (Auto) 77.7 H (45-73) % Lymph % (Auto) 15.6 L (20-40) % [place] % (Auto) 5.9 (2-11) % Eos % (Auto) 0.1 (0-4) % Baso % (Auto) 0.1 (0-2) % Lymph # (Auto) 2.6 (1.2-4.9) X10*3/uL [place] # (Auto) 1.0 (0.1-1.2) X10*3/uL Eos # (Auto) 0.0 (0.0-0.4) X10*3/uL Baso # (Auto) 0.0 (0.0-0.2) X10*3/uL Abs Immat Gran (auto) 0.10 H (0.00-0.03) X10*3/uL Absolute Neuts (auto) 13.2 H (2.0-8.3) x10*3/uL Absolute Nucleated RBC 0.000 (0.0-0.012) X10*3/uL Nucleated RBC % (auto) 0.0 (0.0-0.2) /100WBC VBG pH (7.32-7.43) VBG pCO2 mmHg VBG pO2 mmHg VBG HCO3 (22-26) mmol/L VBG O2 Saturation % VBG Base Excess mmol/L Sodium 141 (135-145) mmol/L Potassium 3.8 D (3.3-5.1) mmol/L Chloride 104 (96-108) mmol/L Carbon Dioxide 28 (22-29) mmol/L Anion Gap 13 (12-20) BUN 15 (9-16) mg/dL Creatinine 0.75 (0.5-1.4) mg/dL Estim Creat Clear Calc 75.7 Estimated GFR > 60 Random Glucose 146 H (60-115) mg/dL Lactic Acid 1.3 (0.5-2.0) mmol/L Calcium 8.3 L (8.4-10.2) mg/dL Total Bilirubin 0.2 (0.0-1.0) mg/dL Direct Bilirubin < 0.2 (0.0-0.5) mg/dL AST 16 (5-31) U/L ALT 14 (0-31) U/L Alkaline Phosphatase 74 (39-117) U/L Troponin I High Sens 26.4 H (<3.5-17.0) ng/L B-Natriuretic Peptide 99 (<100) pg/mL Total Protein 6.1 L (6.5-8.0) g/dL Albumin 3.8 (3.5-5.0) g/dL Influenza Type A (PCR) NEGATIVE (Negative) Influenza Type B (PCR) NEGATIVE (Negative) RSV RNA Qual (PCR) NEGATIVE (Negative) SARS-CoV-2 RNA (RT-PCR) NEGATIVE (Negative) 12/31/24 Range/Units 21:40 WBC (4.8-10.8) X10*3/uL RBC (4.20-5.50) X10*6/uL Hgb (12.0-16.0) g/dl Hct (37.0-47.0) % MCV (80.0-98.0) fL MCH (27.0-33.0) pg MCHC (31.0-35.0) g/dl RDW (11.0-16.0) % Plt Count (160-400) X10*3/uL MPV (9.4-12.3) fL Immature Gran % (Auto) (0.0-0.4) % Neut % (Auto) (45-73) % Lymph % (Auto) (20-40) % [place] % (Auto) (2-11) % Eos % (Auto) (0-4) % Baso % (Auto) (0-2) % Lymph # (Auto) (1.2-4.9) X10*3/uL [place] # (Auto) (0.1-1.2) X10*3/uL Eos # (Auto) (0.0-0.4) X10*3/uL Baso # (Auto) (0.0-0.2) X10*3/uL Abs Immat Gran (auto) (0.00-0.03) X10*3/uL Absolute Neuts (auto) (2.0-8.3) x10*3/uL Absolute Nucleated RBC (0.0-0.012) X10*3/uL Nucleated RBC % (auto) (0.0-0.2) /100WBC VBG pH 7.53 H (7.32-7.43) VBG pCO2 33 mmHg VBG pO2 69 mmHg VBG HCO3 28 H (22-26) mmol/L VBG O2 Saturation 99.0 % VBG Base Excess 5.8 mmol/L Sodium (135-145) mmol/L Potassium (3.3-5.1) mmol/L Chloride (96-108) mmol/L Carbon Dioxide (22-29) mmol/L Anion Gap (12-20) BUN (9-16) mg/dL Creatinine (0.5-1.4) mg/dL Estim Creat Clear Calc Estimated GFR Random Glucose (60-115) mg/dL Lactic Acid (0.5-2.0) mmol/L Calcium (8.4-10.2) mg/dL Total Bilirubin (0.0-1.0) mg/dL Direct Bilirubin (0.0-0.5) mg/dL AST (5-31) U/L ALT (0-31) U/L Alkaline Phosphatase (39-117) U/L Troponin I High Sens (<3.5-17.0) ng/L B-Natriuretic Peptide (<100) pg/mL Total Protein (6.5-8.0) g/dL Albumin (3.5-5.0) g/dL Influenza Type A (PCR) (Negative) Influenza Type B (PCR) (Negative) RSV RNA Qual (PCR) (Negative) SARS-CoV-2 RNA (RT-PCR) (Negative) Independent Interpretation I performed an independent interpretation of an: Plain X-Ray Radiology Impression Discussion of test interpretation with radiology: I have reviewed the radiologist's reading. Radiologist Impression: Cardiac and mediastinal contours are normal. Mild interstitial prominence with scattered peribronchial thickening. No focal consolidation. No effusion. No pneumothorax. No acute osseous finding. Impression: Mild interstitial prominence with scattered peribronchial thickening. No focal consolidation. Critical Care Time Critical Care Time Critical Care Time: Yes Total Critical Care Time: 60 Attestation: I have personally provided critical care time. Time includes review of lab data, radiology results, discussion with consultants, and monitoring for potential decompensation. Intervention performed as documented. Discharge Plan Discharge Clinical Impression: Chronic lung disease Patient Disposition: Admitted As Inpatient Print Language: Danish
[2024-12-31 21:42] LABS: MANUAL DIFF FLAG NO
[2024-12-31 21:43] LABS: Venous Blood Gas Refer to POC result
[2024-12-31 21:43] LABS: Hematocrit 33.6 % (37.0-47.0); Hemoglobin 9.8 g/dl (12.0-16.0); Imm Gran Abs Auto 0.10 X10*3/uL (0.00-0.03); Imm Gran Pct Auto 0.6 % (0.0-0.4); Lymphocytes Absolute Auto 2.6 X10*3/uL (1.2-4.9); Mean Corpuscular HGB Conc 29.2 g/dl (31.0-35.0); Mean Corpuscular Hemoglobin 21.0 pg (27.0-33.0); Mean Corpuscular Volume 71.9 fL (80.0-98.0); NRBC Abs Auto 0.000 X10*3/uL (0.0-0.012); NRBC Pct Auto 0.0 /100WBC (0.0-0.2); Platelet Count 404 X10*3/uL (160-400); Red Blood Count 4.67 X10*6/uL (4.20-5.50); White Blood Count 16.9 X10*3/uL (4.8-10.8)
[2024-12-31 21:44] LABS: VBG HCO3 28 mmol/L (22-26); VBG O2 % Saturation 99.0 %
[2024-12-31 21:56] LABS: Resp Syncy Virus RNA Qual PCR NEGATIVE (Negative); SARS COV2 PCR INHOUSE NEGATIVE (Negative)
[2024-12-31 21:59] LABS: Alanine Aminotransferase 14 U/L (0-31); Albumin Level 3.8 g/dL (3.5-5.0); Alkaline Phosphatase 74 U/L (39-117); Anion Gap 13 (12-20); Aspartate Amino Transferase 16 U/L (5-31); Blood Urea Nitrogen 15 mg/dL (9-16); Calcium 8.3 mg/dL (8.4-10.2); Carbon Dioxide 28 mmol/L (22-29); Chloride 104 mmol/L (96-108); Creatinine Clr Calc Pharmacy 75.7; Estimated Glomerular Filt Rate > 60; Potassium 3.8 mmol/L (3.3-5.1); Sodium 141 mmol/L (135-145); Total Protein 6.1 g/dL (6.5-8.0)
[2024-12-31] MEDS: guaiFEN/Codeine SF 200/20/10ML 10 ML LIQUID 5 ML PO (22:00)
[2024-12-31] MEDS: Albuterol Sulfate 5 MG, Albuterol/Iprat 2.5/0.5MG 3 ML 3 ML INHALE (22:01)
[2024-12-31 22:02] LABS: B Type Natriuretic Peptide 99 pg/mL (<100)
[2024-12-31 22:04] VITALS: PULSE 100; RESP 24; O2SAT 93
[2024-12-31 22:06] LABS: Troponin-I High Sensitivity 26.4 ng/L (<3.5-17.0)
[2024-12-31] MEDS: Magnesium Sulfate/H2O 2 GM/50 ML PIGGYBACK IV (22:07)
--- NOTE | 2024-12-31 22:19 | PC.NURSE ---
Pt resting on stretcher stating short of breath. RT to bedside. Per EMS, they administered 125mg solu-medrol en route to hospital. Spoke with Dr. Bazan and she stated not to give ordered solumedrol dose. [place]bell in reach of the patient and she understands use.
--- NOTE | 2024-12-31 23:34 | P.HPHOSP_ITS ---
History of Present Illness Date of Service: 12/31/24 Attending physician on admission: Cortez Houston Chief Complaint: SOB, cough Patient is a 54-year-old female with a past medical history significant for obesity hypoventilation syndrome, chronic respiratory failure with hypoxia and hypercapnia on 3 L at home, HENRY on BiPAP at bedtime, moderate to severe COPD, type 2 diabetes on insulin, HTN, substance use disorder (crack cocaine), tobacco use disorder and class 2 obesity, who presented to the ED yesterday with cough, wheezing and COPD exacerbation, who returns today due to worsening shortness of breath. The patient reports a productive cough with yellow sputum as well as wheezing. She has been using prednisone at home without any improvement and feels that her symptoms are worsening. When EMS arrived the patient was saturating in the 80s on 3 L of oxygen. She denies any sore throat, chest pain, nausea, vomiting, abdominal pain, headache or rhinorrhea. She is not have any urinary symptoms. The patient has frequent admissions for respiratory issues including COPD exacerbations. Review of Systems 2 Constitutional: Constitutional: Denies body ache(s), Denies chills, Reports fatigue, Denies fever(s) and Denies headache(s) Eyes: Eyes: Denies change in vision ENT: Denies headache(s) Cardiovascular: Cardiovascular: Denies chest pain, Denies rapid heart rate, Denies leg edema, Denies lightheadedness and Reports dyspnea Respiratory: Respiratory: Reports chest congestion, Reports cough, Reports dyspnea and Reports wheezing Gastrointestinal: Gastrointestinal: Denies abdominal pain, Denies diarrhea, Denies nausea and Denies vomiting Genitourinary: Genitourinary: Denies dysuria and Denies urinary urgency Musculoskeletal: Musculoskeletal: Denies myalgias Integumentary/Breasts: Skin/Breast: Denies rash Neurologic: Denies confusion and Denies headache(s) Psychiatric: Psychiatric: Denies confusion Endocrine: Endocrine: Reports fatigue Hematologic/Lymphatic: Hematologic/Lymphatic: Denies easy bleeding and Denies easy bruising Allergic/Immunologic: Allergic/Immunologic: Reports wheezing [facility] Medical History Chronic lung disease BAHMAN (generalized anxiety disorder) COPD (chronic obstructive pulmonary disease) Cocaine use disorder Cocaine abuse GERD (gastroesophageal reflux disease) Constipation Non-insulin dependent type 2 diabetes mellitus HENRY (obstructive sleep apnea) Acute exacerbation of chronic obstructive airways disease Asthma with exacerbation Obesity hypoventilation syndrome Chronic lung disease Hypoxic respiratory failure Nocturnal hypoxemia Diabetes mellitus COPD exacerbation Crack cocaine use Hyperkalemia Metabolic acidosis Leukocytosis Chest discomfort Chronic renal failure, stage 2 (mild) SOB (shortness of breath) Asthma Smoker Rotator cuff tendonitis GERD (gastroesophageal reflux disease) Chronic idiopathic constipation Bustos's esophagus Depression High triglycerides Gastroparesis Carpal tunnel syndrome of right wrist Nausea & vomiting Hernia Acute and chronic respiratory failure, unspecified whether with hypoxia or hypercapnia HTN (hypertension) Obesity (BMI 30-39.9) Knee pain, bilateral Family History Father Heart disease HENRY (obstructive sleep apnea) Family history of breast cancer Mother Asthma Emphysema, unspecified Bronchitis Smoker Alcoholism Bone marrow disease Maternal Grandmother Diabetes Surgical History History of cholecystectomy (~1988) History of carpal tunnel release Hx of tubal ligation History of pubovaginal sling (~2015) History of umbilical hernia repair (~2001) Hx of section History of open reduction and internal fixation (ORIF) procedure History of esophagogastroduodenoscopy (EGD) Social History Household Members: Family Household Members Other:: sister; lives on 3rd floor Housing: House Are you a primary patient care assistant to a significant other at home: No Do you presently have visiting nurse or other home services: Yes (reinaldo DUTTA) Unable to assess alcohol history related to: Unknown Alcohol intake: never Comment: Sleeping Patient Tobacco Use Status: Current everyday Tobacco user Tobacco use type: Cigarette Cigarette Packs Per Day: 0.5 Cigarettes Per Day: 10 Years Smoked: 40 e-Cigarette/Vaping Use: Currently Using Second Hand Smoke Exposure: Yes Substance Use Type: Crack/Cocaine Advance Directives: Yes Advance Directives on File: Yes Advance Directives Date on File: 12/19/23 service: No Current occupational status: disabled 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 Smokes crack cocaine, last use just prior to this exacerbation. Meds Allergies Allergy/AdvReac Type Severity Reaction Status Date / Time doxycycline Allergy Severe Swelling Verified 12/31/24 21:02 varenicline (From CHANTIX) Allergy Severe ANAPHYLAXIS Verified 12/31/24 21:02 azithromycin Allergy Intermediate Rash Verified 12/31/24 21:02 barium sulfate Allergy Intermediate angioedema Verified 12/31/24 21:02 cetirizine Allergy Mild Rash Verified 12/31/24 21:02 famotidine Allergy Mild Rash Verified 12/31/24 21:02 linaclotide (Linzess) Allergy Mild Rash Verified 12/31/24 21:02 Active Medications: Current Medications Acetaminophen (Acetaminophen 325 Mg Tablet) 975 mg PO Q6H PRN PRN Reason: Pain, Mild 1-3,fever,headache Calcium Carbonate (Calcium Carbonate 750 Mg Tab.Chew) 750 mg PO Q4H PRN PRN Reason: Heartburn Dextrose (Dextrose 50 % 25 Gm/50 Ml Syringe) 25 gm IVPUSH Q15M PRN; Protocol PRN Reason: per Hypoglycemia Standing Ord. Glucose (Glucose Gel 15 Gm Gel..Gram.) 15 gm PO Q15M PRN; Protocol PRN Reason: per Hypoglycemia Standing Ord. Guaifenesin/Codeine Phosphate (Guaifen/Codeine Sf 200/20/10ml 10 Ml Liquid) 5 ml PO Q4H PRN PRN Reason: Cough Last Admin: 12/31/24 22:00 Dose: 5 ml Insulin Glargine (Insulin Glargine,Hum.Rec.Anlog 100 Unit/Ml 10 Ml Vial) 12 unit SUBCUT BEDTIME [facility] Insulin Human Lispro (Insulin Lispro 100 Unit/Ml 3 Ml Vial) 0 - 10 unit SUBCUT QIDACHS [facility]; Protocol Melatonin (Melatonin 3 Mg Tablet) 6 mg PO BEDTIME PRN PRN Reason: Insomnia Sodium Chloride (0.9 % Sodium Chloride Flush 3 Ml Syringe) 3 [facility] Medications ?Medication ?Instructions ?Recorded ?Confirmed ?Last Taken ?Type sertraline 100 mg tablet 100 mg PO DAILY 11/12/2412/16/24 History sertraline 25 mg tablet 25 mg PO DAILY 11/12/24/12/16/24 History tiotropium 2.5 mcg-olodaterol 2.5 2 puff inhalation DA PHIL 11/26/24 12/18/24 12/16/24 History mcg/actuation mist for inhalation (Stiolto Respimat) insulin glargine 100 unit/mL (3 12 unit subcut BEDTIME 12/01/24 12/18/24 12/16/24 History mL) subcutaneous pen (Lantus Solostar U-100 Insulin) aspirin 325 mg tablet 650 mg PO Q6H PRN Pain 12/1812/18/24 Unknown History quetiapine 50 mg tablet 50 mg PO BID 12/18/2412/16/24 History topiramate 25 mg tablet 50 mg PO BID 12/18/2412/16/24 History Physical Exam 2 Vital Signs and Narrative: Vital Signs: Last Vital Signs Temp 98.0 F 12/31/24 21:10 Pulse 100 12/31/24 22:04 Resp 24 H 12/31/24 22:04 BP 107/62 12/31/24 21:10 Pulse Ox 93 12/31/24 21:10 O2 Del Method Nasal Cannula 12/31/24 21:10 O2 Flow Rate 3 12/31/24 21:10 BMI result Body Mass Index 34.9 General: AOx3, no acute distress, mild conversation dyspnea Resp: rhonchorous, no crackles, wheezing mostly with expiration CVS: tachy, normal rhythm GI: +BS, NT, no distention Skin: Warm, dry Neuro: Cranial nerves II-XII grossly intact bilaterally. Motor grossly intact bilaterally Extremities: No LE edema Psych: Appropriate affect Const: General: No confusion Orientation/consciousness: No confusion Neuro: General: No confusion Results Labs 12/31/24 21:32 12/31/24 21:32 Labs: Laboratory Results - last 24 hr 12/31/24 12/31/24 12/31/24 21:13 21:31 21:32 MCV 71.9 L MCH 21.0 L MCHC 29.2 L RDW 17.6 H Plt Count 404 H MPV 8.7 L Immature Gran % (Auto) 0.6 H Neut % (Auto) 77.7 H Lymph % (Auto) 15.6 L [place] % (Auto) 5.9 Eos % (Auto) 0.1 Baso % (Auto) 0.1 Lymph # (Auto) 2.6 [place] # (Auto) 1.0 Eos # (Auto) 0.0 Baso # (Auto) 0.0 Abs Immat Gran (auto) 0.10 H Absolute Neuts (auto) 13.2 H Absolute Nucleated RBC 0.000 Nucleated RBC % (auto) 0.0 VBG pH VBG pCO2 VBG pO2 VBG HCO3 VBG O2 Saturation VBG Base Excess Anion Gap 13 Estim Creat Clear Calc 75.7 Estimated GFR > 60 Random Glucose 146 H Lactic Acid 1.3 Calcium 8.3 L Total Bilirubin 0.2 Direct Bilirubin < 0.2 AST 16 ALT 14 Alkaline Phosphatase 74 Troponin I High Sens 26.4 H B-Natriuretic Peptide 99 Total Protein 6.1 L Albumin 3.8 Influenza Type A (PCR) NEGATIVE Influenza Type B (PCR) NEGATIVE RSV RNA Qual (PCR) NEGATIVE SARS-CoV-2 RNA (RT-PCR) NEGATIVE 12/31/24 21:40 MCV MCH MCHC RDW Plt Count MPV Immature Gran % (Auto) Neut % (Auto) Lymph % (Auto) [place] % (Auto) Eos % (Auto) Baso % (Auto) Lymph # (Auto) [place] # (Auto) Eos # (Auto) Baso # (Auto) Abs Immat Gran (auto) Absolute Neuts (auto) Absolute Nucleated RBC Nucleated RBC % (auto) VBG pH 7.53 H VBG pCO2 33 VBG pO2 69 VBG HCO3 28 H VBG O2 Saturation 99.0 VBG Base Excess 5.8 Anion Gap Estim Creat Clear Calc Estimated GFR Random Glucose Lactic Acid Calcium Total Bilirubin Direct Bilirubin AST ALT Alkaline Phosphatase Troponin I High Sens B-Natriuretic Peptide Total Protein Albumin Influenza Type A (PCR) Influenza Type B (PCR) RSV RNA Qual (PCR) SARS-CoV-2 RNA (RT-PCR) Assessment and Plan (1) Sepsis: Qualifiers: Sepsis acute organ dysfunction status: without acute organ dysfunction Status: Acute (2) Acute on chronic respiratory failure with hypoxia and hypercapnia: Status: Acute (3) Acute exacerbation of chronic obstructive pulmonary disease: Status: Acute (4) Obesity hypoventilation syndrome: Status: Acute (5) Smoker: Status: Acute (6) Cocaine use disorder: Status: Acute Plan Patient is a 54-year-old female with a past medical history significant for obesity hypoventilation syndrome, chronic respiratory failure with hypoxia and hypercapnia on 3 L at home, HENRY on BiPAP at bedtime, moderate to severe COPD, type 2 diabetes on insulin, HTN, substance use disorder (crack cocaine), tobacco use disorder and class 2 obesity, who presented to the ED yesterday with cough, wheezing and COPD exacerbation, who returns today due to worsening shortness of breath. Sepsis with acute on chronic respiratory failure with hypoxia and hypercapnia secondary to acute COPD exacerbation with obesity hypoventilation syndrome - WBC 16.9, tachycardic and tachypneic, lactic acid normal, blood cultures x2 pending, not severe sepsis - chest x-ray negative for pneumonia or pulmonary edema, mild interstitial prominence with scattered peribronchial thickening. - COVID/flu/RSV negative - troponin 26.4, at baseline - VBG ok - EKG with sinus tachycardia, PACs with aberrant conduction - given Solu-Medrol 125 mg via EMS as well as DuoNeb - patient also given magnesium and Levaquin in ED - continue Solu-Medrol 60 mg b.i.d., levalbuterol/ipratropium Q4H while awake, Levaquin Q24H - bipap for sleep, NC during day, titrate as needed - monitor CBC and BMP Type 2 diabetes - Lantus 12 units nightly - sliding scale insulin - diabetic diet Hypertension - continue home meds Mood disorder - continue home meds Substance use disorder- crack cocaine - likely exacerbated COPD - addiction med consult Tobacco use disorder - nicotine patch - smoking cessation discussed Class 2 obesity - BMI 34.9 - weight loss encouraged Med rec pending Full code VTE prophylaxis: Lovenox Patient with sepsis and acute on chronic respiratory failure with hypoxia and hypercapnia secondary to acute COPD exacerbation, requiring admission for at least 2 midnight stay for IV steroids, breathing treatments, antibiotics and monitoring. Quality Stroke Does the patient have a stroke diagnosis?: No VTE Prior VTE?: No VTE Risk Level:: Medical - moderate - high VTE Device Contraindication: Treatment Not Indicated VTE Drug Contraindication: N/A - Med Ordered
[2024-12-31 23:39] VITALS: BP 151/56; PULSE 113; RESP 16; TEMP 36.8; O2SAT 96
[2024-12-31 23:42] LABS: Procalcitonin 0.04 ng/mL
[2024-12-31 23:54] VITALS: BP 137/57; PULSE 108; RESP 16; O2SAT 95
[2024-12-31] MEDS: Insulin Glargine,Hum.rec.anlog 100 UNIT/ML 10 ML VIAL 12 UNIT SUBCUT (23:59)
[2025-01-01] VITALS (13 sets, daily range): BP systolic 118–147; BP diastolic 67–85; PULSE 78–113; RESP 18–22; TEMP 36.1–36.9; O2SAT 93–100; BMI 33.2
--- NOTE | 2025-01-01 | ECG_ITS ---
Test Reason : pain Blood Pressure : */* mmHG Vent. Rate : 106 BPM Atrial Rate : 106 BPM P-R Int : 132 ms QRS Dur : 90 ms QT Int : 334 ms P-R-T Axes : 54 133 67 degrees QTcB Int : 443 ms Sinus tachycardia with Premature supraventricular complexes Right axis deviation Possible Right ventricular hypertrophy Nonspecific ST abnormality Abnormal ECG When compared to the previous EKG of No significant changes seen Referred By: Cortez Houston Electronically Signed By: PAUL VARGAS MD
[2025-01-01 00:07] LABS: Glucose, Whole Blood 347 mg/dL (60-115)
[2025-01-01] MEDS: guaiFEN/Codeine SF 200/20/10ML 10 ML LIQUID 5 ML PO ×3 (03:44→16:24)
[2025-01-01] MEDS: levalbuterol HCL 1.25 MG, Ipratropium Bromide 0.5 MG INHALE ×5 (04:06→18:58)
[2025-01-01 07:10] LABS: MANUAL DIFF FLAG NO
[2025-01-01 07:18] LABS: Hematocrit 32.9 % (37.0-47.0); Hemoglobin 9.2 g/dl (12.0-16.0); Imm Gran Abs Auto 0.10 X10*3/uL (0.00-0.03); Imm Gran Pct Auto 0.8 % (0.0-0.4); Lymphocytes Absolute Auto 1.4 X10*3/uL (1.2-4.9); Mean Corpuscular HGB Conc 28.0 g/dl (31.0-35.0); Mean Corpuscular Hemoglobin 20.5 pg (27.0-33.0); Mean Corpuscular Volume 73.4 fL (80.0-98.0); NRBC Abs Auto 0.020 X10*3/uL (0.0-0.012); NRBC Pct Auto 0.2 /100WBC (0.0-0.2); Platelet Count 429 X10*3/uL (160-400); Red Blood Count 4.48 X10*6/uL (4.20-5.50); White Blood Count 13.2 X10*3/uL (4.8-10.8)
[2025-01-01 07:34] LABS: Anion Gap 12 (12-20); Blood Urea Nitrogen 18 mg/dL (9-16); Calcium 8.4 mg/dL (8.4-10.2); Carbon Dioxide 27 mmol/L (22-29); Chloride 105 mmol/L (96-108); Creatinine Clr Calc Pharmacy 65.7; Estimated Glomerular Filt Rate > 60; Potassium 4.1 mmol/L (3.3-5.1); Sodium 140 mmol/L (135-145)
[2025-01-01 08:04] LABS: Glucose, Whole Blood 207 mg/dL (60-115)
[2025-01-01] MEDS: 0.9 % Sodium Chloride Flush 3 ML SYRINGE IVFLUSH ×3 (08:06→19:27)
[2025-01-01] MEDS: Nicotine 14 MG PATCH.TD24 TRANSDERMA (08:07)
--- NOTE | 2025-01-01 08:08 | PHA.MEDREC ---
Pharmacy Consult ? Medication Reconciliation Pharmacy has completed the medication reconciliation. Patient knew medications. Now taking 16 units of lantus at bedtime
[2025-01-01] MEDS: Theophylline Anhydrous ER 400 MG TAB.ER.24H PO ×2 (09:01→19:18)
[2025-01-01] MEDS: Aspirin Enteric Coated 81 MG TABLET.DR PO (09:01)
--- NOTE | 2025-01-01 09:37 | P.PNIM_ITS ---
Subjective Subjective Date of Service: 01/01/25 Interval History: Seen and examined this morning Follow-up for respiratory failure Patient reports cough productive of yellow phlegm, shortness of breath Review of Systems Review of Systems: Yes all other systems are reviewed and are negative Constitutional Constitutional: Denies chills and Denies fever(s) Cardiovascular Cardiovascular: Denies chest pain and Reports dyspnea Respiratory Respiratory: Reports cough and Reports dyspnea Physical Exam 2 Vital Signs: Vital Signs: Last Vital Signs Temp 97.0 F 01/01/25 07:35 Pulse 92 01/01/25 07:53 Resp 18 01/01/25 07:53 BP 147/67 H 01/01/25 07:35 Pulse Ox 98 01/01/25 07:35 O2 Del Method Nasal Cannula 01/01/25 07:35 O2 Flow Rate 3 01/01/25 07:35 BMI result Body Mass Index 33.2 Const: General: cooperative, comfortable, alert and awake Nutritional Appearance: obese Orientation/consciousness: patient oriented x3 Resp: Other: b/l wheeze Effort & Inspection: normal respiratory effort, able to speak in complete sentences, no respiratory distress and no use of accessory muscles Cardio: Rate: regular rate GI: Inspection: No distended Palpation (GI): nontender Neuro: General: patient oriented x3, moves all extremities and CN's II-XI intact bilaterally Objective Data Active Medications Acetaminophen (Acetaminophen 325 Mg Tablet) 975 mg PO Q6H PRN PRN Reason: Pain, Mild 1-3,fever,headache Aspirin (Aspirin Enteric Coated 81 Mg Tablet.) 81 mg PO DAILY [facility] Last Admin: 01/01/25 09:01 Dose: 81 mg Documented By: PHAN Atorvastatin Calcium (Atorvastatin Calcium 40 Mg Tablet) 40 mg PO BEDTIME [facility] Benzonatate (Benzonatate 100 Mg Capsule) 100 mg PO TID PRN PRN Reason: Cough Calcium Carbonate (Calcium Carbonate 750 Mg Tab.Chew) 750 mg PO Q4H PRN PRN Reason: Heartburn Calcium Carbonate/Cholecalciferol (Calcium + Vitamin D 250 Mg Tablet) 500 mg PO DAILY [facility] Levalbuterol HCl 1.25 mg/ (Ipratropium [place] 0.5 mg) 0 mg INHALE RQ4H WHILE AWAKE [facility] Last Admin: 01/01/25 07:49 Dose: 1 dose Documented By: HO.SCOVILH Dextrose (Dextrose 50 % 25 Gm/50 Ml Syringe) 25 gm IVPUSH Q15M PRN; Protocol PRN Reason: per Hypoglycemia Standing Ord. Enoxaparin Sodium (Enoxaparin Sodium 40 Mg/0.4 Ml Syringe) 40 mg SUBCUT BEDTIME [facility] Last Admin: 12/31/24 23:59 Dose: 40 mg Documented By: JOSE Furosemide (Furosemide 20 Mg Tablet) 20 mg PO DAILY [place]; Protocol Last Admin: 01/01/25 09:01 Dose: 20 mg Documented By: PHAN Gabapentin (Gabapentin 400 Mg Capsule) 800 mg PO QID [place] Last Admin: 01/01/25 09:01 Dose: 800 mg Documented By: PHAN Glucose (Glucose Gel 15 Gm Gel..Gram.) 15 gm PO Q15M PRN; Protocol PRN Reason: per Hypoglycemia Standing Ord. Guaifenesin/Codeine Phosphate (Guaifen/Codeine Sf 200/20/10ml 10 Ml Liquid) 5 ml PO Q4H PRN PRN Reason: Cough Last Admin: 01/01/25 08:14 Dose: 5 ml Documented By: PHAN Guaifenesin/Codeine Phosphate (Guaifen/Codeine Sf 200/20/10ml 10 Ml Liquid) 5 ml PO Q6H PRN PRN Reason: Cough Levofloxacin (Levaquin) 750 mg in 150 mls @ 100 mls/hr IV Q24H [place] Ibuprofen (Ibuprofen 800 Mg Tablet) 800 mg PO BID PRN PRN Reason: Headache Insulin Glargine (Insulin Glargine,Hum.Rec.Anlog 100 Unit/Ml 10 Ml Vial) 12 unit SUBCUT BEDTIME [place] Last Admin: 12/31/24 23:59 Dose: 12 unit Documented By: JOSE Insulin Human Lispro (Insulin Lispro 100 Unit/Ml 3 Ml Vial) 0 - 10 unit SUBCUT QIDACHS [facility]; Protocol Last Admin: 01/01/25 08:06 Dose: 4 unit Documented By: PHAN Loratadine (Loratadine 10 Mg Tablet) 10 mg PO DAILY [facility] Last Admin: 01/01/25 09:09 Dose: 10 mg Documented By: PHAN Losartan Potassium (Losartan Potassium 50 Mg Tablet) 50 mg PO DAILY [place]; Protocol Last Admin: 01/01/25 09:01 Dose: 50 mg Documented By: PHAN Magnesium Hydroxide (Milk Of Magnesia 30 Ml Oral.Susp) 30 ml PO DAILY PRN PRN Reason: Constipation Melatonin (Melatonin 3 Mg Tablet) 6 mg PO BEDTIME PRN PRN Reason: Insomnia Methylprednisolone Sodium Succinate (Methylprednisolone Sod Succ 125 Mg/2 Ml Vial) 60 mg IVPUSH BID [facility] Last Admin: 01/01/25 08:07 Dose: 60 mg Documented By: PHAN Nicotine (Nicotine 14 Mg Patch.Td24) 14 mg TRANSDERMA DAILY [facility] Last Admin: 01/01/25 08:07 Dose: 14 mg Documented By: PHAN Omeprazole (Omeprazole 20 Mg Capsule.Dr) 20 mg PO DAILY@629 [facility] Ondansetron HCl (Ondansetron Hcl 4 Mg/2 Ml Vial) 4 mg IVPUSH Q8H PRN PRN Reason: Nausea and Vomiting Oxycodone HCl (Oxycodone Hcl Immed Release 5 Mg Tablet) 5 mg PO Q6H PRN PRN Reason: Pain, Severe (Pain Scale 7-10) Quetiapine Fumarate (Quetiapine Fumarate 25 Mg Tablet) 50 mg PO BID [facility] Last Admin: 01/01/25 08:07 Dose: 50 mg Documented By: PHAN Quetiapine Fumarate (Quetiapine Fumarate 50 Mg Tablet) 50 mg PO BID [facility] Last Admin: 01/01/25 08:58 Dose: Not Given Documented By: PHAN Non-Admin Reason: Med already given Sertraline HCl (Sertraline Hcl 100 Mg Tablet) 100 mg PO DAILY [facility] Last Admin: 01/01/25 09:01 Dose: 100 mg Documented By: PHAN Sertraline HCl (Sertraline Hcl 25 Mg Tablet) 25 mg PO DAILY [facility] Last Admin: 01/01/25 09:01 Dose: 25 mg Documented By: PHAN Sodium Chloride (0.9 % Sodium Chloride Flush 3 Ml Syringe) 3 ml IVFLUSH QSHIFT [facility] Last Admin: 01/01/25 08:06 Dose: 3 ml Documented By: PHAN Theophylline (Theophylline Anhydrous Er 400 Mg Tab.Er.24h) 400 mg PO BID [facility] Last Admin: 01/01/25 09:01 Dose: 400 mg Documented By: PHAN Tizanidine HCl (Tizanidine Hcl 4 Mg Tablet) 4 mg PO Q12H [facility] Last Admin: 01/01/25 09:09 Dose: 4 mg Documented By: PHAN Topiramate (Topiramate 25 Mg Tablet) 50 mg PO BID [facility] Last Admin: 01/01/25 09:09 Dose: 50 mg Documented By: PHAN Tramadol HCl (Tramadol Hcl 50 Mg Tablet) 50 mg PO Q6H PRN PRN Reason: Pain, Moderate(Pain Scale 4-6) Labs 01/01/25 06:54 01/01/25 06:54 Labs: Laboratory Results - last 24 hr 12/31/24 12/31/24 12/31/24 21:13 21:31 21:32 MCV 71.9 L MCH 21.0 L MCHC 29.2 L RDW 17.6 H Plt Count 404 H MPV 8.7 L Immature Gran % (Auto) 0.6 H Neut % (Auto) 77.7 H Lymph % (Auto) 15.6 L [place] % (Auto) 5.9 Eos % (Auto) 0.1 Baso % (Auto) 0.1 Lymph # (Auto) 2.6 [place] # (Auto) 1.0 Eos # (Auto) 0.0 Baso # (Auto) 0.0 Abs Immat Gran (auto) 0.10 H Absolute Neuts (auto) 13.2 H Absolute Nucleated RBC 0.000 Nucleated RBC % (auto) 0.0 VBG pH VBG pCO2 VBG pO2 VBG HCO3 VBG O2 Saturation VBG Base Excess Anion Gap 13 Estim Creat Clear Calc 75.7 Estimated GFR > 60 POC Glucose Random Glucose 146 H Lactic Acid 1.3 Calcium 8.3 L Total Bilirubin 0.2 Direct Bilirubin < 0.2 AST 16 ALT 14 Alkaline Phosphatase 74 Troponin I High Sens 26.4 H B-Natriuretic Peptide 99 Total Protein 6.1 L Albumin 3.8 Procalcitonin 0.04 Influenza Type A (PCR) NEGATIVE Influenza Type B (PCR) NEGATIVE RSV RNA Qual (PCR) NEGATIVE SARS-CoV-2 RNA (RT-PCR) NEGATIVE 12/31/24 12/31/24 01/01/25 21:40 23:57 06:54 MCV 73.4 L MCH 20.5 L MCHC 28.0 L RDW 17.5 H Plt Count 429 H MPV 9.1 L Immature Gran % (Auto) 0.8 H Neut % (Auto) 81.5 H Lymph % (Auto) 10.8 L [place] % (Auto) 6.7 Eos % (Auto) 0.0 Baso % (Auto) 0.2 Lymph # (Auto) 1.4 [place] # (Auto) 0.9 Eos # (Auto) 0.0 Baso # (Auto) 0.0 Abs Immat Gran (auto) 0.10 H Absolute Neuts (auto) 10.8 H Absolute Nucleated RBC 0.020 H Nucleated RBC % (auto) 0.2 VBG pH 7.53 H VBG pCO2 33 VBG pO2 69 VBG HCO3 28 H VBG O2 Saturation 99.0 VBG Base Excess 5.8 Anion Gap 12 Estim Creat Clear Calc 65.7 Estimated GFR > 60 POC Glucose 347 H Random Glucose 248 H Lactic Acid Calcium 8.4 Total Bilirubin Direct Bilirubin AST ALT Alkaline Phosphatase Troponin I High Sens B-Natriuretic Peptide Total Protein Albumin Procalcitonin Influenza Type A (PCR) Influenza Type B (PCR) RSV RNA Qual (PCR) SARS-CoV-2 RNA (RT-PCR) 01/01/25 07:34 MCV MCH MCHC RDW Plt Count MPV Immature Gran % (Auto) Neut % (Auto) Lymph % (Auto) [place] % (Auto) Eos % (Auto) Baso % (Auto) Lymph # (Auto) [place] # (Auto) Eos # (Auto) Baso # (Auto) Abs Immat Gran (auto) Absolute Neuts (auto) Absolute Nucleated RBC Nucleated RBC % (auto) VBG pH VBG pCO2 VBG pO2 VBG HCO3 VBG O2 Saturation VBG Base Excess Anion Gap Estim Creat Clear Calc Estimated GFR POC Glucose 207 H Random Glucose Lactic Acid Calcium Total Bilirubin Direct Bilirubin AST ALT Alkaline Phosphatase Troponin I High Sens B-Natriuretic Peptide Total Protein Albumin Procalcitonin Influenza Type A (PCR) Influenza Type B (PCR) RSV RNA Qual (PCR) SARS-CoV-2 RNA (RT-PCR) Assessment and Plan (1) Cocaine use disorder: Status: Acute (2) Acute respiratory failure with hypoxia and hypercarbia: Status: Acute Plan This is a 54-year-old female with a past medical history significant for obesity hypoventilation syndrome, chronic respiratory failure with hypoxia and hypercapnia on 3 L at home, HENRY on BiPAP at bedtime, moderate to severe COPD, type 2 diabetes on insulin, HTN, substance use disorder (crack cocaine), tobacco use disorder and class 2 obesity, who presented to the ED yesterday with cough, wheezing and COPD exacerbation, who returns today due to worsening shortness of breath. Sepsis with acute on chronic respiratory failure with hypoxia and hypercapnia secondary to acute COPD exacerbation with obesity hypoventilation syndrome WBC 16.9, tachycardic and tachypneic, lactic acid normal. not severe sepsis chest x-ray negative for pneumonia or pulmonary edema COVID/flu/RSV negative continue Solu-Medrol, levalbuterol/ipratropium, po cefuroxime bipap for sleep, NC during day, titrate as needed monitor CBC and BMP HFrEF no acute exacerbation continue lasix Type 2 diabetes Lantus, SSI, follow POCs, ADA diet Hypertension losartan Mood disorder continue home meds Substance use disorder- crack cocaine likely exacerbated COPD addiction med consult Tobacco use disorder nicotine patch smoking cessation discussed Class 2 obesity BMI 34.9 weight loss encouraged Full code VTE prophylaxis: Lovenox requires ongoing inpatient stay for management of hypoxia and hypercapnia secondary to acute COPD exacerbation for , breathing treatments, antibiotics IV steroids and monitoring. Quality Stroke Does the patient have a stroke diagnosis?: No VTE Prior VTE?: No VTE Risk Level:: Medical - moderate - high VTE Device Contraindication: Treatment Not Indicated VTE Drug Contraindication: N/A - Med Ordered
--- NOTE | 2025-01-01 10:38 | MHC.CM.PN ---
Pt lives with her sister, she is active with [facility]. For DME, she has home O2, a cane, a walker, and a w/c. Pt. said to CM that she may go to [facility] this time. She needs BLS to go home if she does. DCP; home, resume [facility] or [facility]. CM to follow for DC needs.
[2025-01-01 11:55] LABS: Glucose, Whole Blood 173 mg/dL (60-115)
[2025-01-01 16:25] LABS: Glucose, Whole Blood 255 mg/dL (60-115)
[2025-01-01 19:46] LABS: Glucose, Whole Blood 168 mg/dL (60-115)
[2025-01-01 20:10] LABS: D Dimer High Sensitivity 189 NG/ML
[2025-01-01 20:18] LABS: Troponin-I High Sensitivity 29.3 ng/L (<3.5-17.0)
[2025-01-01] MEDS: Insulin Glargine,Hum.rec.anlog 100 UNIT/ML 10 ML VIAL 16 UNIT SUBCUT (20:24)
[2025-01-02] VITALS (13 sets, daily range): BP systolic 127–175; BP diastolic 65–84; PULSE 75–128; RESP 18–20; TEMP 35.9–36.8; O2SAT 91–100
[2025-01-02 07:25] LABS: Anion Gap 12 (12-20); Blood Urea Nitrogen 26 mg/dL (9-16); Calcium 8.6 mg/dL (8.4-10.2); Carbon Dioxide 27 mmol/L (22-29); Chloride 108 mmol/L (96-108); Creatinine Clr Calc Pharmacy 74.6; Estimated Glomerular Filt Rate > 60; Potassium 4.5 mmol/L (3.3-5.1); Sodium 142 mmol/L (135-145)
[2025-01-02 07:30] LABS: Hematocrit 33.8 % (37.0-47.0); Hemoglobin 9.5 g/dl (12.0-16.0); Imm Gran Abs Auto 0.12 X10*3/uL (0.00-0.03); Imm Gran Pct Auto 0.6 % (0.0-0.4); Lymphocytes Absolute Auto 3.2 X10*3/uL (1.2-4.9); MANUAL DIFF FLAG SCAN; Mean Corpuscular HGB Conc 28.1 g/dl (31.0-35.0); Mean Corpuscular Hemoglobin 21.1 pg (27.0-33.0); Mean Corpuscular Volume 74.9 fL (80.0-98.0); NRBC Abs Auto 0.020 X10*3/uL (0.0-0.012); NRBC Pct Auto 0.1 /100WBC (0.0-0.2); Platelet Count 441 X10*3/uL (160-400); Red Blood Count 4.51 X10*6/uL (4.20-5.50); SCAN SMEAR FLAG 1; White Blood Count 20.9 X10*3/uL (4.8-10.8)
[2025-01-02 07:47] LABS: Glucose, Whole Blood 142 mg/dL (60-115)
[2025-01-02] MEDS: levalbuterol HCL 1.25 MG, Ipratropium Bromide 0.5 MG INHALE ×4 (07:53→19:02)
[2025-01-02] MEDS: Calcium + Vitamin D 250 MG TABLET 500 MG PO (09:38)
[2025-01-02] MEDS: Nicotine 14 MG PATCH.TD24 TRANSDERMA (09:39)
[2025-01-02] MEDS: Theophylline Anhydrous ER 400 MG TAB.ER.24H PO ×2 (09:39→19:46)
[2025-01-02] MEDS: Aspirin Enteric Coated 81 MG TABLET.DR PO (09:39)
[2025-01-02] MEDS: 0.9 % Sodium Chloride Flush 3 ML SYRINGE IVFLUSH ×3 (09:40→19:56)
[2025-01-02 11:18] LABS: Glucose, Whole Blood 190 mg/dL (60-115)
--- NOTE | 2025-01-02 12:01 | P.PNIM_ITS ---
Subjective Subjective Date of Service: 01/02/25 Interval History: Seen and examined this morning Follow-up for respiratory failure Patient reports cough productive of yellow phlegm, shortness of breath Review of Systems Review of Systems: Yes all other systems are reviewed and are negative Constitutional Constitutional: Denies chills and Denies fever(s) Cardiovascular Cardiovascular: Denies chest pain and Reports dyspnea Respiratory Respiratory: Reports cough and Reports dyspnea Physical Exam 2 Vital Signs: Vital Signs: Last Vital Signs Temp 96.6 F L 01/02/25 11:38 Pulse 110 H 01/02/25 11:38 Resp 18 01/02/25 11:38 BP 148/65 H 01/02/25 11:38 Pulse Ox 93 01/02/25 11:38 O2 Del Method Nasal Cannula 01/02/25 11:38 O2 Flow Rate 2 01/02/25 11:38 BMI result Body Mass Index 33.2 Appearing in no acute distress lung sounds diminished heart regular rate rhythm, clear S1, S2 positive bowel sounds, abdomen is soft, nontender neuro patient is alert x3, no focal deficits Objective Data Active Medications Acetaminophen (Acetaminophen 325 Mg Tablet) 975 mg PO Q6H PRN PRN Reason: Pain, Mild 1-3,fever,headache Aspirin (Aspirin Enteric Coated 81 Mg Tablet.Dr) 81 mg PO DAILY [facility] Last Admin: 01/02/25 09:39 Dose: 81 mg Documented By: PHAN Atorvastatin Calcium (Atorvastatin Calcium 40 Mg Tablet) 40 mg PO BEDTIME [facility] Last Admin: 01/01/25 19:19 Dose: 40 mg Documented By: KULWANT Benzonatate (Benzonatate 100 Mg Capsule) 100 mg PO TID PRN PRN Reason: Cough Calcium Carbonate (Calcium Carbonate 750 Mg Tab.Chew) 750 mg PO Q4H PRN PRN Reason: Heartburn Calcium Carbonate/Cholecalciferol (Calcium + Vitamin D 250 Mg Tablet) 500 mg PO DAILY [facility] Last Admin: 01/02/25 09:38 Dose: 500 mg Documented By: PHAN Cefuroxime Axetil (Cefuroxime Axetil 500 Mg Tablet) 500 mg PO Q12H [facility] Last Admin: 01/02/25 09:38 Dose: 500 mg Documented By: PHAN Levalbuterol HCl 1.25 mg/ (Ipratropium [place] 0.5 mg) 0 mg INHALE RQ4H WHILE AWAKE [facility] Last Admin: 01/02/25 11:18 Dose: 1 dose Documented By: JOANIE Dextrose (Dextrose 50 % 25 Gm/50 Ml Syringe) 25 gm IVPUSH Q15M PRN; Protocol PRN Reason: per Hypoglycemia Standing Ord. Enoxaparin Sodium (Enoxaparin Sodium 40 Mg/0.4 Ml Syringe) 40 mg SUBCUT BEDTIME [facility] Last Admin: 01/01/25 19:19 Dose: 40 mg Documented By: KULWANT Furosemide (Furosemide 20 Mg Tablet) 20 mg PO DAILY [facility]; Protocol Last Admin: 01/02/25 09:38 Dose: 20 mg Documented By: PHAN Gabapentin (Gabapentin 400 Mg Capsule) 800 mg PO QID [facility] Last Admin: 01/02/25 09:38 Dose: 800 mg Documented By: PHAN Glucose (Glucose Gel 15 Gm Gel..Gram.) 15 gm PO Q15M PRN; Protocol PRN Reason: per Hypoglycemia Standing Ord. Guaifenesin/Codeine Phosphate (Guaifen/Codeine Sf 200/20/10ml 10 Ml Liquid) 5 ml PO Q6H PRN PRN Reason: Cough Last Admin: 01/01/25 16:24 Dose: 5 ml Documented By: PHAN Ibuprofen (Ibuprofen 800 Mg Tablet) 800 mg PO BID PRN PRN Reason: Headache Insulin Glargine (Insulin Glargine,Hum.Rec.Anlog 100 Unit/Ml 10 Ml Vial) 16 unit SUBCUT BEDTIME [facility] Last Admin: 01/01/25 20:24 Dose: 16 unit Documented By: KULWANT Insulin Human Lispro (Insulin Lispro 100 Unit/Ml 3 Ml Vial) 0 - 10 unit SUBCUT QIDACHS [facility]; Protocol Last Admin: 01/02/25 07:50 Dose: Not Given Documented By: PHAN Non-Admin Reason: poc= 142 Loratadine (Loratadine 10 Mg Tablet) 10 mg PO DAILY [facility] Last Admin: 01/02/25 09:39 Dose: 10 mg Documented By: PHAN Losartan Potassium (Losartan Potassium 50 Mg Tablet) 50 mg PO DAILY [facility]; Protocol Last Admin: 01/02/25 09:38 Dose: 50 mg Documented By: PHAN Magnesium Hydroxide (Milk Of Magnesia 30 Ml Oral.Susp) 30 ml PO DAILY PRN PRN Reason: Constipation Melatonin (Melatonin 3 Mg Tablet) 6 mg PO BEDTIME PRN PRN Reason: Insomnia Methylprednisolone Sodium Succinate (Methylprednisolone Sod Succ 40 Mg Vial) 40 mg IVPUSH BID [facility] Last Admin: 01/02/25 09:38 Dose: 40 mg Documented By: PHAN Morphine Sulfate (Morphine Sulfate 2 Mg/Ml Cartridge) 1 mg IVPUSH Q6H PRN; Protocol PRN Reason: Chest Pain Last Admin: 01/02/25 10:21 Dose: 1 mg Documented By: PHAN Nicotine (Nicotine 14 Mg Patch.Td24) 14 mg TRANSDERMA DAILY [facility] Last Admin: 01/02/25 09:39 Dose: 14 mg Documented By: PHAN Omeprazole (Omeprazole 20 Mg Capsule.Dr) 20 mg PO DAILY@0630 [facility] Last Admin: 01/02/25 06:06 Dose: 20 mg Documented By: KULWANT Ondansetron HCl (Ondansetron Hcl 4 Mg/2 Ml Vial) 4 mg IVPUSH Q8H PRN PRN Reason: Nausea and Vomiting Oxycodone HCl (Oxycodone Hcl Immed Release 5 Mg Tablet) 5 mg PO Q6H PRN PRN Reason: Pain, Severe (Pain Scale 7-10) Quetiapine Fumarate (Quetiapine Fumarate 25 Mg Tablet) 50 mg PO BID [facility] Last Admin: 01/02/25 09:40 Dose: Not Given Documented By: PHAN Non-Admin Reason: Duplicate Order Quetiapine Fumarate (Quetiapine Fumarate 50 Mg Tablet) 50 mg PO BID [facility] Last Admin: 01/02/25 09:38 Dose: 50 mg Documented By: PHAN Sertraline HCl (Sertraline Hcl 100 Mg Tablet) 100 mg PO DAILY [facility] Last Admin: 01/02/25 09:39 Dose: 100 mg Documented By: PHAN Sertraline HCl (Sertraline Hcl 25 Mg Tablet) 25 mg PO DAILY [facility] Last Admin: 01/02/25 09:40 Dose: 25 mg Documented By: PHAN Sodium Chloride (0.9 % Sodium Chloride Flush 3 Ml Syringe) 3 ml IVFLUSH QSHIFT [facility] Last Admin: 01/02/25 09:40 Dose: 3 ml Documented By: PHAN Theophylline (Theophylline Anhydrous Er 400 Mg Tab.Er.24h) 400 mg PO BID [facility] Last Admin: 01/02/25 09:39 Dose: 400 mg Documented By: PHAN Tizanidine HCl (Tizanidine Hcl 4 Mg Tablet) 4 mg PO Q12H [facility] Last Admin: 01/02/25 09:39 Dose: 4 mg Documented By: PHAN Topiramate (Topiramate 25 Mg Tablet) 50 mg PO BID [facility] Last Admin: 01/02/25 09:38 Dose: 50 mg Documented By: PHAN Tramadol HCl (Tramadol Hcl 50 Mg Tablet) 50 mg PO Q6H PRN PRN Reason: Pain, Moderate(Pain Scale 4-6) Labs 01/02/25 06:42 01/02/25 06:42 Labs: Laboratory Results - last 24 hr 01/01/25 01/01/25 01/01/25 15:56 19:40 19:52 MCV MCH MCHC RDW Plt Count MPV Immature Gran % (Auto) Neut % (Auto) Lymph % (Auto) [place] % (Auto) Eos % (Auto) Baso % (Auto) Lymph # (Auto) [place] # (Auto) Eos # (Auto) Baso # (Auto) Abs Immat Gran (auto) Absolute Neuts (auto) Absolute Nucleated RBC Nucleated RBC % (auto) Smear Tech's Comments D-Dimer High Sensitivty 189 Anion Gap Estim Creat Clear Calc Estimated GFR POC Glucose 255 H 168 H Random Glucose Calcium Troponin I High Sens 29.3 H 01/02/25 01/02/25 01/02/25 06:42 07:23 11:08 MCV 74.9 L MCH 21.1 L MCHC 28.1 L RDW 17.6 H Plt Count 441 H MPV 9.0 L Immature Gran % (Auto) 0.6 H Neut % (Auto) 76.1 H Lymph % (Auto) 15.4 L [place] % (Auto) 7.7 Eos % (Auto) 0.1 Baso % (Auto) 0.1 Lymph # (Auto) 3.2 [place] # (Auto) 1.6 H Eos # (Auto) 0.0 Baso # (Auto) 0.0 Abs Immat Gran (auto) 0.12 H Absolute Neuts (auto) 15.9 H Absolute Nucleated RBC 0.020 H Nucleated RBC % (auto) 0.1 Smear Tech's Comments VERIFIED D-Dimer High Sensitivty Anion Gap 12 Estim Creat Clear Calc 74.6 Estimated GFR > 60 POC Glucose 142 H 190 H Random Glucose 168 H Calcium 8.6 Troponin I High Sens Microbiology Microbiology Results: Microbiology 12/31/24 21:35 Blood Culture - Preliminary Blood - Venous No growth after 24 hours. 12/31/24 21:35 Blood Culture - Preliminary Blood - Venous No growth after 24 hours. Assessment and Plan (1) Cocaine use disorder: Status: Acute (2) Acute respiratory failure with hypoxia and hypercarbia: Status: Acute (3) Acute bronchospasm: Status: Acute Plan 54-year-old female with a past medical history significant for obesity hypoventilation syndrome, chronic respiratory failure with hypoxia and hypercapnia on 3 L at home, HENRY on BiPAP at bedtime, moderate to severe COPD, type 2 diabetes on insulin, HTN, substance use disorder (crack cocaine), tobacco use disorder and class 2 obesity, who presented to the ED yesterday with cough, wheezing and COPD exacerbation, who returns today due to worsening shortness of breath. Sepsis with acute on chronic respiratory failure with hypoxia and hypercapnia secondary to acute COPD exacerbation with obesity hypoventilation syndrome WBC 16.9, tachycardic and tachypneic, lactic acid normal. not severe sepsis chest x-ray negative for pneumonia or pulmonary edema COVID/flu/RSV negative continue Solu-Medrol, levalbuterol/ipratropium, po cefuroxime bipap for sleep, NC during day, titrate as needed monitor CBC and BMP HFrEF no acute exacerbation continue lasix Type 2 diabetes Lantus, SSI, follow POCs, ADA diet Hypertension losartan Mood disorder continue home meds Substance use disorder- crack cocaine likely exacerbated COPD addiction med consult Tobacco use disorder nicotine patch smoking cessation discussed Class 2 obesity BMI 33.2 weight loss encouraged Full code VTE prophylaxis: Lovenox Quality Stroke Does the patient have a stroke diagnosis?: No VTE Prior VTE?: No VTE Risk Level:: Medical - moderate - high VTE Device Contraindication: Treatment Not Indicated VTE Drug Contraindication: N/A - Med Ordered
[2025-01-02 15:39] LABS: Glucose, Whole Blood 279 mg/dL (60-115)
[2025-01-02] MEDS: guaiFEN/Codeine SF 200/20/10ML 10 ML LIQUID 5 ML PO (16:25)
[2025-01-02 20:18] LABS: Glucose, Whole Blood 217 mg/dL (60-115)
[2025-01-02] MEDS: Insulin Glargine,Hum.rec.anlog 100 UNIT/ML 10 ML VIAL 16 UNIT SUBCUT (21:22)
[2025-01-03] VITALS (13 sets, daily range): BP systolic 106–154; BP diastolic 55–72; PULSE 87–125; RESP 16–22; TEMP 36–36.7; O2SAT 88–100
[2025-01-03] MEDS: Albuterol/Iprat 2.5/0.5MG 3 ML AMPUL.NEB INHALE (00:01)
[2025-01-03 07:25] LABS: Glucose, Whole Blood 183 mg/dL (60-115)
[2025-01-03] MEDS: levalbuterol HCL 1.25 MG, Ipratropium Bromide 0.5 MG INHALE ×4 (07:27→19:41)
[2025-01-03] MEDS: Nicotine 14 MG PATCH.TD24 TRANSDERMA (08:01)
[2025-01-03 08:02] LABS: MANUAL DIFF FLAG NO
[2025-01-03 08:05] LABS: Hematocrit 33.8 % (37.0-47.0); Hemoglobin 9.5 g/dl (12.0-16.0); Imm Gran Abs Auto 0.08 X10*3/uL (0.00-0.03); Imm Gran Pct Auto 0.6 % (0.0-0.4); Lymphocytes Absolute Auto 3.2 X10*3/uL (1.2-4.9); Mean Corpuscular HGB Conc 28.1 g/dl (31.0-35.0); Mean Corpuscular Hemoglobin 21.1 pg (27.0-33.0); Mean Corpuscular Volume 75.1 fL (80.0-98.0); NRBC Abs Auto 0.020 X10*3/uL (0.0-0.012); NRBC Pct Auto 0.1 /100WBC (0.0-0.2); Platelet Count 393 X10*3/uL (160-400); Red Blood Count 4.50 X10*6/uL (4.20-5.50); White Blood Count 14.5 X10*3/uL (4.8-10.8)
[2025-01-03] MEDS: Calcium + Vitamin D 250 MG TABLET 500 MG PO (08:06)
[2025-01-03] MEDS: Theophylline Anhydrous ER 400 MG TAB.ER.24H PO ×2 (08:09→20:26)
[2025-01-03] MEDS: Aspirin Enteric Coated 81 MG TABLET.DR PO (08:11)
[2025-01-03] MEDS: 0.9 % Sodium Chloride Flush 3 ML SYRINGE IVFLUSH ×2 (08:13→16:28)
[2025-01-03 08:32] LABS: Anion Gap 13 (12-20); Blood Urea Nitrogen 30 mg/dL (9-16); Calcium 9.0 mg/dL (8.4-10.2); Carbon Dioxide 29 mmol/L (22-29); Chloride 105 mmol/L (96-108); Creatinine Clr Calc Pharmacy 74.6; Estimated Glomerular Filt Rate > 60; Potassium 4.3 mmol/L (3.3-5.1); Sodium 143 mmol/L (135-145)
--- NOTE | 2025-01-03 09:27 | P.PNIM_ITS ---
Subjective Subjective Date of Service: 01/03/25 Interval History: Seen and examined this morning Follow-up for respiratory failure Patient reports cough productive of yellow phlegm, shortness of breath Review of Systems Review of Systems: Yes all other systems are reviewed and are negative Constitutional Constitutional: Denies chills and Denies fever(s) Cardiovascular Cardiovascular: Denies chest pain and Reports dyspnea Respiratory Respiratory: Reports cough and Reports dyspnea Physical Exam 2 Vital Signs: Vital Signs: Last Vital Signs Temp 97.0 F 01/03/25 07:24 Pulse 93 01/03/25 07:29 Resp 18 01/03/25 07:29 BP 139/68 01/03/25 07:24 Pulse Ox 97 01/03/25 07:24 O2 Del Method Nasal Cannula 01/03/25 07:24 O2 Flow Rate 2 01/03/25 07:24 BMI result Body Mass Index 33.2 Appearing in no acute distress lung sounds exp wheezing heart regular rate rhythm, clear S1, S2 positive bowel sounds, abdomen is soft, nontender neuro patient is alert x3, no focal deficits Objective Data Active Medications Acetaminophen (Acetaminophen 325 Mg Tablet) 975 mg PO Q6H PRN PRN Reason: Pain, Mild 1-3,fever,headache Albuterol/Ipratropium (Albuterol/Iprat 2.5/0.5mg 3 Ml Ampul.Neb) 3 ml INHALE RQ4H WHILE AWAKE PRN PRN Reason: Shortness of Breath Last Admin: 01/03/25 00:01 Dose: 3 ml Documented By: AALIYAH Aspirin (Aspirin Enteric Coated 81 Mg Tablet.) 81 mg PO DAILY [facility] Last Admin: 01/03/25 08:11 Dose: 81 mg Documented By: CONSTANTIN Atorvastatin Calcium (Atorvastatin Calcium 40 Mg Tablet) 40 mg PO BEDTIME [facility] Last Admin: 01/02/25 19:46 Dose: 40 mg Documented By: KULWANT Benzonatate (Benzonatate 100 Mg Capsule) 100 mg PO TID PRN PRN Reason: Cough Calcium Carbonate (Calcium Carbonate 750 Mg Tab.Chew) 750 mg PO Q4H PRN PRN Reason: Heartburn Calcium Carbonate/Cholecalciferol (Calcium + Vitamin D 250 Mg Tablet) 500 mg PO DAILY [facility] Last Admin: 01/03/25 08:06 Dose: 500 mg Documented By: CONSTANTIN Cefuroxime Axetil (Cefuroxime Axetil 500 Mg Tablet) 500 mg PO Q12H [facility] Last Admin: 01/02/25 21:20 Dose: 500 mg Documented By: KULWANT Levalbuterol HCl 1.25 mg/ (Ipratropium [place] 0.5 mg) 0 mg INHALE RQ4H WHILE AWAKE [facility] Last Admin: 01/03/25 07:27 Dose: 5 dose Documented By: VAZQUEZ Dextrose (Dextrose 50 % 25 Gm/50 Ml Syringe) 25 gm IVPUSH Q15M PRN; Protocol PRN Reason: per Hypoglycemia Standing Ord. Enoxaparin Sodium (Enoxaparin Sodium 40 Mg/0.4 Ml Syringe) 40 mg SUBCUT BEDTIME [facility] Last Admin: 01/02/25 19:47 Dose: 40 mg Documented By: KULWANT Furosemide (Furosemide 20 Mg Tablet) 20 mg PO DAILY [facility]; Protocol Last Admin: 01/03/25 08:09 Dose: 20 mg Documented By: CONSTANTIN Gabapentin (Gabapentin 400 Mg Capsule) 800 mg PO QID [place] Last Admin: 01/03/25 08:06 Dose: 800 mg Documented By: CONSTANTIN Glucose (Glucose Gel 15 Gm Gel..Gram.) 15 gm PO Q15M PRN; Protocol PRN Reason: per Hypoglycemia Standing Ord. Guaifenesin/Codeine Phosphate (Guaifen/Codeine Sf 200/20/10ml 10 Ml Liquid) 5 ml PO Q6H PRN PRN Reason: Cough Last Admin: 01/02/25 16:25 Dose: 5 ml Documented By: CONSTANTIN Ibuprofen (Ibuprofen 800 Mg Tablet) 800 mg PO BID PRN PRN Reason: Headache Insulin Glargine (Insulin Glargine,Hum.Rec.Anlog 100 Unit/Ml 10 Ml Vial) 16 unit SUBCUT BEDTIME [facility] Last Admin: 01/02/25 21:22 Dose: 16 unit Documented By: KULWANT Insulin Human Lispro (Insulin Lispro 100 Unit/Ml 3 Ml Vial) 0 - 10 unit SUBCUT QIDACHS [facility]; Protocol Last Admin: 01/03/25 08:04 Dose: 2 unit Documented By: CONSTANTIN Loratadine (Loratadine 10 Mg Tablet) 10 mg PO DAILY [facility] Last Admin: 01/03/25 08:11 Dose: 10 mg Documented By: CONSTANTIN Losartan Potassium (Losartan Potassium 50 Mg Tablet) 50 mg PO DAILY [facility]; Protocol Last Admin: 01/03/25 08:11 Dose: 50 mg Documented By: CONSTANTIN Magnesium Hydroxide (Milk Of Magnesia 30 Ml Oral.Susp) 30 ml PO DAILY PRN PRN Reason: Constipation Melatonin (Melatonin 3 Mg Tablet) 6 mg PO BEDTIME PRN PRN Reason: Insomnia Methylprednisolone Sodium Succinate (Methylprednisolone Sod Succ 40 Mg Vial) 40 mg IVPUSH BID [facility] Last Admin: 01/03/25 08:13 Dose: 40 mg Documented By: CONSTANTIN Morphine Sulfate (Morphine Sulfate 2 Mg/Ml Cartridge) 1 mg IVPUSH Q6H PRN; Protocol PRN Reason: Chest Pain Last Admin: 01/03/25 08:18 Dose: 1 mg Documented By: CONSTANTIN Nicotine (Nicotine 14 Mg Patch.Td24) 14 mg TRANSDERMA DAILY [facility] Last Admin: 01/03/25 08:01 Dose: 14 mg Documented By: CONSTANTIN Omeprazole (Omeprazole 20 Mg Capsule.Dr) 20 mg PO DAILY@0630 [facility] Last Admin: 01/03/25 05:42 Dose: 20 mg Documented By: KULWANT Ondansetron HCl (Ondansetron Hcl 4 Mg/2 Ml Vial) 4 mg IVPUSH Q8H PRN PRN Reason: Nausea and Vomiting Last Admin: 01/03/25 00:45 Dose: 4 mg Documented By: KULWANT Oxycodone HCl (Oxycodone Hcl Immed Release 5 Mg Tablet) 5 mg PO Q6H PRN PRN Reason: Pain, Severe (Pain Scale 7-10) Quetiapine Fumarate (Quetiapine Fumarate 25 Mg Tablet) 50 mg PO BID [facility] Last Admin: 01/03/25 08:12 Dose: 50 mg Documented By: CONSTANTIN Quetiapine Fumarate (Quetiapine Fumarate 50 Mg Tablet) 50 mg PO BID [facility] Last Admin: 01/03/25 08:13 Dose: Not Given Documented By: CONSTANTIN Non-Admin Reason: Duplicate Order Sertraline HCl (Sertraline Hcl 100 Mg Tablet) 100 mg PO DAILY [facility] Last Admin: 01/03/25 08:12 Dose: 100 mg Documented By: CONSTANTIN Sertraline HCl (Sertraline Hcl 25 Mg Tablet) 25 mg PO DAILY [facility] Last Admin: 01/03/25 08:11 Dose: 25 mg Documented By: CONSTANTIN Sodium Chloride (0.9 % Sodium Chloride Flush 3 Ml Syringe) 3 ml IVFLUSH QSHIFT [facility] Last Admin: 01/03/25 08:13 Dose: 3 ml Documented By: CONSTANTIN Theophylline (Theophylline Anhydrous Er 400 Mg Tab.Er.24h) 400 mg PO BID [facility] Last Admin: 01/03/25 08:09 Dose: 400 mg Documented By: CONSTANTIN Tizanidine HCl (Tizanidine Hcl 4 Mg Tablet) 4 mg PO Q12H [facility] Last Admin: 01/03/25 08:10 Dose: 4 mg Documented By: CONSTANTIN Topiramate (Topiramate 25 Mg Tablet) 50 mg PO BID [facility] Last Admin: 01/03/25 08:07 Dose: 50 mg Documented By: CONSTANTIN Tramadol HCl (Tramadol Hcl 50 Mg Tablet) 50 mg PO Q6H PRN PRN Reason: Pain, Moderate(Pain Scale 4-6) Labs 01/03/25 07:53 01/03/25 07:53 Labs: Laboratory Results - last 24 hr 01/02/25 01/02/25 01/02/25 11:08 15:35 20:15 MCV MCH MCHC RDW Plt Count MPV Immature Gran % (Auto) Neut % (Auto) Lymph % (Auto) [place] % (Auto) Eos % (Auto) Baso % (Auto) Lymph # (Auto) [place] # (Auto) Eos # (Auto) Baso # (Auto) Abs Immat Gran (auto) Absolute Neuts (auto) Absolute Nucleated RBC Nucleated RBC % (auto) Anion Gap Estim Creat Clear Calc Estimated GFR POC Glucose 190 H 279 H 217 H Random Glucose Calcium 01/03/25 01/03/25 07:22 07:53 MCV 75.1 L MCH 21.1 L MCHC 28.1 L RDW 17.6 H Plt Count 393 MPV 8.7 L Immature Gran % (Auto) 0.6 H Neut % (Auto) 69.7 Lymph % (Auto) 22.1 [place] % (Auto) 7.3 Eos % (Auto) 0.2 Baso % (Auto) 0.1 Lymph # (Auto) 3.2 [place] # (Auto) 1.1 Eos # (Auto) 0.0 Baso # (Auto) 0.0 Abs Immat Gran (auto) 0.08 H Absolute Neuts (auto) 10.1 H Absolute Nucleated RBC 0.020 H Nucleated RBC % (auto) 0.1 Anion Gap 13 Estim Creat Clear Calc 74.6 Estimated GFR > 60 POC Glucose 183 H Random Glucose 157 H Calcium 9.0 Microbiology Microbiology Results: Microbiology 12/31/24 21:35 Blood Culture - Preliminary Blood - Venous No growth after 48 hours. 12/31/24 21:35 Blood Culture - Preliminary Blood - Venous No growth after 48 hours. Assessment and Plan (1) Cocaine use disorder: Status: Acute (2) Acute respiratory failure with hypoxia and hypercarbia: Status: Acute (3) Acute bronchospasm: Status: Acute Plan 54-year-old female with a past medical history significant for obesity hypoventilation syndrome, chronic respiratory failure with hypoxia and hypercapnia on 3 L at home, HENRY on BiPAP at bedtime, moderate to severe COPD, type 2 diabetes on insulin, HTN, substance use disorder (crack cocaine), tobacco use disorder and class 2 obesity, who presented to the ED yesterday with cough, wheezing and COPD exacerbation, who returns today due to worsening shortness of breath. Sepsis with acute on chronic respiratory failure with hypoxia and hypercapnia secondary to acute COPD exacerbation with obesity hypoventilation syndrome leukocytosis, tachycardic and tachypneic, lactic acid normal. not severe sepsis chest x-ray negative for pneumonia or pulmonary edema COVID/flu/RSV negative continue Solu-Medrol, levalbuterol/ipratropium, po cefuroxime bipap for sleep, NC during day, titrate as needed monitor CBC and BMP HFrEF no acute exacerbation continue lasix Type 2 diabetes Lantus, SSI, follow POCs, ADA diet Hypertension losartan Mood disorder continue home meds Substance use disorder- crack cocaine likely exacerbated COPD addiction med consult Tobacco use disorder nicotine patch smoking cessation discussed Class 2 obesity BMI 33.2 weight loss encouraged Full code VTE prophylaxis: Lovenox Quality Stroke Does the patient have a stroke diagnosis?: No VTE Prior VTE?: No VTE Risk Level:: Medical - moderate - high VTE Device Contraindication: Treatment Not Indicated VTE Drug Contraindication: N/A - Med Ordered
[2025-01-03 11:30] LABS: Glucose, Whole Blood 206 mg/dL (60-115)
[2025-01-03 15:57] LABS: Glucose, Whole Blood 363 mg/dL (60-115)
[2025-01-03 16:13] LABS: Glucose, Whole Blood 341 mg/dL (60-115)
[2025-01-03 19:31] LABS: Glucose, Whole Blood 135 mg/dL (60-115)
[2025-01-03] MEDS: Milk of Magnesia 30 ML ORAL.SUSP PO (20:38)
[2025-01-03] MEDS: Insulin Glargine,Hum.rec.anlog 100 UNIT/ML 10 ML VIAL 16 UNIT SUBCUT (20:40)
[2025-01-03] MEDS: guaiFEN/Codeine SF 200/20/10ML 10 ML LIQUID 5 ML PO (22:16)
[2025-01-04] VITALS (12 sets, daily range): BP systolic 113–196; BP diastolic 53–77; PULSE 89–115; RESP 14–22; TEMP 36.1–37.1; O2SAT 93–100
[2025-01-04] MEDS: Albuterol/Iprat 2.5/0.5MG 3 ML AMPUL.NEB INHALE (04:49)
[2025-01-04 07:05] LABS: Glucose, Whole Blood 254 mg/dL (60-115)
[2025-01-04] MEDS: levalbuterol HCL 1.25 MG, Ipratropium Bromide 0.5 MG INHALE ×4 (07:57→19:20)
[2025-01-04] MEDS: Nicotine 14 MG PATCH.TD24 TRANSDERMA (08:25)
[2025-01-04] MEDS: Calcium + Vitamin D 250 MG TABLET 500 MG PO (08:27)
[2025-01-04] MEDS: Theophylline Anhydrous ER 400 MG TAB.ER.24H PO ×2 (08:27→20:09)
[2025-01-04] MEDS: Aspirin Enteric Coated 81 MG TABLET.DR PO (08:28)
[2025-01-04] MEDS: guaiFEN/Codeine SF 200/20/10ML 10 ML LIQUID 5 ML PO (08:36)
[2025-01-04] MEDS: 0.9 % Sodium Chloride Flush 3 ML SYRINGE IVFLUSH ×3 (09:06→20:10)
--- NOTE | 2025-01-04 10:44 | P.PNIM_ITS ---
Subjective Subjective Date of Service: 01/04/25 Interval History: Seen and examined this morning Follow-up for respiratory failure Patient reports cough productive of yellow phlegm, shortness of breath Review of Systems Review of Systems: Yes all other systems are reviewed and are negative Constitutional Constitutional: Denies chills and Denies fever(s) Cardiovascular Cardiovascular: Denies chest pain and Reports dyspnea Respiratory Respiratory: Reports cough and Reports dyspnea Physical Exam 2 Vital Signs: Vital Signs: Last Vital Signs Temp 97.6 F 01/04/25 07:09 Pulse 100 01/04/25 07:58 Resp 19 01/04/25 07:58 BP 146/69 H 01/04/25 07:09 Pulse Ox 97 01/04/25 07:09 O2 Del Method Nasal Cannula 01/04/25 07:09 O2 Flow Rate 2 01/04/25 07:09 BMI result Body Mass Index 33.2 Appearing in no acute distress lung sounds are clear to auscultation heart regular rate rhythm, clear S1, S2 positive bowel sounds, abdomen is soft, nontender neuro patient is alert x3, no focal deficits Objective Data Active Medications Acetaminophen (Acetaminophen 325 Mg Tablet) 975 mg PO Q6H PRN PRN Reason: Pain, Mild 1-3,fever,headache Albuterol/Ipratropium (Albuterol/Iprat 2.5/0.5mg 3 Ml Ampul.Neb) 3 ml INHALE RQ4H WHILE AWAKE PRN PRN Reason: Shortness of Breath Last Admin: 01/04/25 04:49 Dose: 3 ml Documented By: HECTOR Aspirin (Aspirin Enteric Coated 81 Mg Tablet.) 81 mg PO DAILY [facility] Last Admin: 01/04/25 08:28 Dose: 81 mg Documented By: CONSTANTIN Atorvastatin Calcium (Atorvastatin Calcium 40 Mg Tablet) 40 mg PO BEDTIME [facility] Last Admin: 01/03/25 20:26 Dose: 40 mg Documented By: LULA Benzonatate (Benzonatate 100 Mg Capsule) 100 mg PO TID PRN PRN Reason: Cough Last Admin: 01/03/25 16:28 Dose: 100 mg Documented By: PHAN Calcium Carbonate (Calcium Carbonate 750 Mg Tab.Chew) 750 mg PO Q4H PRN PRN Reason: Heartburn Last Admin: 01/03/25 16:28 Dose: 750 mg Documented By: PHAN Calcium Carbonate/Cholecalciferol (Calcium + Vitamin D 250 Mg Tablet) 500 mg PO DAILY [facility] Last Admin: 01/04/25 08:27 Dose: 500 mg Documented By: CONSTANTIN Cefuroxime Axetil (Cefuroxime Axetil 500 Mg Tablet) 500 mg PO Q12H [facility] Last Admin: 01/03/25 22:13 Dose: 500 mg Documented By: LULA Levalbuterol HCl 1.25 mg/ (Ipratropium [place] 0.5 mg) 0 mg INHALE RQ4H WHILE AWAKE [facility] Last Admin: 01/04/25 07:57 Dose: 5 dose Documented By: ALEJANDRA Dextrose (Dextrose 50 % 25 Gm/50 Ml Syringe) 25 gm IVPUSH Q15M PRN; Protocol PRN Reason: per Hypoglycemia Standing Ord. Enoxaparin Sodium (Enoxaparin Sodium 40 Mg/0.4 Ml Syringe) 40 mg SUBCUT BEDTIME [facility] Last Admin: 01/03/25 20:29 Dose: 40 mg Documented By: LULA Furosemide (Furosemide 20 Mg Tablet) 20 mg PO DAILY [place]; Protocol Last Admin: 01/04/25 08:27 Dose: 20 mg Documented By: CONSTANTIN Gabapentin (Gabapentin 400 Mg Capsule) 800 mg PO QID [facility] Last Admin: 01/04/25 08:28 Dose: 800 mg Documented By: CONSTANTIN Glucose (Glucose Gel 15 Gm Gel..Gram.) 15 gm PO Q15M PRN; Protocol PRN Reason: per Hypoglycemia Standing Ord. Guaifenesin/Codeine Phosphate (Guaifen/Codeine Sf 200/20/10ml 10 Ml Liquid) 5 ml PO Q6H PRN PRN Reason: Cough Last Admin: 01/04/25 08:36 Dose: 5 ml Documented By: CONSTANTIN Ibuprofen (Ibuprofen 800 Mg Tablet) 800 mg PO BID PRN PRN Reason: Headache Insulin Glargine (Insulin Glargine,Hum.Rec.Anlog 100 Unit/Ml 10 Ml Vial) 16 unit SUBCUT BEDTIME [facility] Last Admin: 01/03/25 20:40 Dose: 16 unit Documented By: LULA Insulin Human Lispro (Insulin Lispro 100 Unit/Ml 3 Ml Vial) 0 - 10 unit SUBCUT QIDACHS [facility]; Protocol Last Admin: 01/04/25 08:23 Dose: 6 unit Documented By: CONSTANTIN Loratadine (Loratadine 10 Mg Tablet) 10 mg PO DAILY [facility] Last Admin: 01/04/25 08:29 Dose: 10 mg Documented By: CONSTANTIN Losartan Potassium (Losartan Potassium 50 Mg Tablet) 50 mg PO DAILY [facility]; Protocol Last Admin: 01/04/25 08:27 Dose: 50 mg Documented By: CONSTANTIN Magnesium Hydroxide (Milk Of Magnesia 30 Ml Oral.Susp) 30 ml PO DAILY PRN PRN Reason: Constipation Last Admin: 01/03/25 20:38 Dose: 30 ml Documented By: LULA Melatonin (Melatonin 3 Mg Tablet) 6 mg PO BEDTIME PRN PRN Reason: Insomnia Methylprednisolone Sodium Succinate (Methylprednisolone Sod Succ 40 Mg Vial) 40 mg IVPUSH BID [facility] Last Admin: 01/04/25 08:29 Dose: 40 mg Documented By: CONSTANTIN Morphine Sulfate (Morphine Sulfate 2 Mg/Ml Cartridge) 1 mg IVPUSH Q6H PRN; Protocol PRN Reason: Chest Pain Last Admin: 01/04/25 08:33 Dose: 0.5 mg Documented By: CONSTANTIN Nicotine (Nicotine 14 Mg Patch.Td24) 14 mg TRANSDERMA DAILY [facility] Last Admin: 01/04/25 08:25 Dose: 14 mg Documented By: CONSTANTIN Omeprazole (Omeprazole 20 Mg Capsule.Dr) 20 mg PO DAILY@0630 [facility] Last Admin: 01/04/25 05:44 Dose: 20 mg Documented By: LULA Ondansetron HCl (Ondansetron Hcl 4 Mg/2 Ml Vial) 4 mg IVPUSH Q8H PRN PRN Reason: Nausea and Vomiting Last Admin: 01/03/25 00:45 Dose: 4 mg Documented By: KULWANT Oxycodone HCl (Oxycodone Hcl Immed Release 5 Mg Tablet) 5 mg PO Q6H PRN PRN Reason: Pain, Severe (Pain Scale 7-10) Quetiapine Fumarate (Quetiapine Fumarate 25 Mg Tablet) 50 mg PO BID [facility] Last Admin: 01/04/25 09:05 Dose: 50 mg Documented By: CONSTANTIN Quetiapine Fumarate (Quetiapine Fumarate 50 Mg Tablet) 50 mg PO BID [facility] Last Admin: 01/04/25 09:05 Dose: Not Given Documented By: CONSTANTIN Non-Admin Reason: Duplicate Order Sertraline HCl (Sertraline Hcl 100 Mg Tablet) 100 mg PO DAILY [facility] Last Admin: 01/04/25 08:29 Dose: 100 mg Documented By: CONSTANTIN Sertraline HCl (Sertraline Hcl 25 Mg Tablet) 25 mg PO DAILY [facility] Last Admin: 01/04/25 08:28 Dose: 25 mg Documented By: CONSTANTIN Sodium Chloride (0.9 % Sodium Chloride Flush 3 Ml Syringe) 3 ml IVFLUSH QSHIFT [facility] Last Admin: 01/04/25 09:06 Dose: 3 ml Documented By: CONSTANTIN Theophylline (Theophylline Anhydrous Er 400 Mg Tab.Er.24h) 400 mg PO BID [facility] Last Admin: 01/04/25 08:27 Dose: 400 mg Documented By: CONSTANTIN Tizanidine HCl (Tizanidine Hcl 4 Mg Tablet) 4 mg PO Q12H [facility] Last Admin: 01/04/25 08:28 Dose: 4 mg Documented By: CONSTANTIN Topiramate (Topiramate 25 Mg Tablet) 50 mg PO BID [facility] Last Admin: 01/04/25 08:27 Dose: 50 mg Documented By: CONSTANTIN Tramadol HCl (Tramadol Hcl 50 Mg Tablet) 50 mg PO Q6H PRN PRN Reason: Pain, Moderate(Pain Scale 4-6) Labs 01/03/25 07:53 01/03/25 07:53 Labs: Laboratory Results - last 24 hr 01/03/25 01/03/25 01/03/25 11:26 15:48 16:09 POC Glucose 206 H 363 H* 341 H 01/03/25 01/04/25 19:27 07:01 POC Glucose 135 H 254 H Assessment and Plan (1) Cocaine use disorder: Status: Acute (2) Acute respiratory failure with hypoxia and hypercarbia: Status: Acute (3) Acute bronchospasm: Status: Acute Plan 54-year-old female with a past medical history significant for obesity hypoventilation syndrome, chronic respiratory failure with hypoxia and hypercapnia on 3 L at home, HENRY on BiPAP at bedtime, moderate to severe COPD, type 2 diabetes on insulin, HTN, substance use disorder (crack cocaine), tobacco use disorder and class 2 obesity, who presented to the ED yesterday with cough, wheezing and COPD exacerbation, who returns today due to worsening shortness of breath. Sepsis with acute on chronic respiratory failure with hypoxia and hypercapnia secondary to acute COPD exacerbation with obesity hypoventilation syndrome. Sepsis resolved leukocytosis, tachycardic and tachypneic, lactic acid normal. not severe sepsis chest x-ray negative for pneumonia or pulmonary edema COVID/flu/RSV negative continue Solu-Medrol, levalbuterol/ipratropium, po cefuroxime bipap for sleep, NC during day, titrate as needed monitor CBC and BMP HFrEF no acute exacerbation continue lasix Type 2 diabetes Lantus, SSI, follow POCs, ADA diet Hypertension losartan Mood disorder continue home meds Substance use disorder- crack cocaine likely exacerbated COPD addiction med consult Tobacco use disorder nicotine patch smoking cessation discussed Class 2 obesity BMI 33.2 weight loss encouraged Full code VTE prophylaxis: Lovenox Quality Stroke Does the patient have a stroke diagnosis?: No VTE Prior VTE?: No VTE Risk Level:: Medical - moderate - high VTE Device Contraindication: Treatment Not Indicated VTE Drug Contraindication: N/A - Med Ordered
--- NOTE | 2025-01-04 10:55 | MHC.CM.PN ---
Per ROUNDS discussion, Patient is SOB and not yet medically cleared for dc; Patient may benefit from a PT Eval to assist with disposition. CM will follow.
[2025-01-04 11:20] LABS: Glucose, Whole Blood 140 mg/dL (60-115)
[2025-01-04 16:19] LABS: Glucose, Whole Blood 342 mg/dL (60-115)
--- NOTE | 2025-01-04 16:34 | P.EN_ITS ---
Event Note Date of Service: 01/04/25 Event Note: Addiction consult placed for patient with stimulant use disorder Seen by water pollution control technician Continues to take Topirimate, which she finds helpful. No follow up indicated. Time Spent With Patient Time: Total time managing care of this patient today ____ minutes.
[2025-01-04 20:34] LABS: Glucose, Whole Blood 121 mg/dL (60-115)
[2025-01-04] MEDS: Insulin Glargine,Hum.rec.anlog 100 UNIT/ML 10 ML VIAL 16 UNIT SUBCUT (21:09)
[2025-01-04] MEDS: Sodium Chloride 0.65 % Nasal 44 ML SPRBTL 1 SPRAY NOSTRIL-B (21:14)
[2025-01-05] VITALS (14 sets, daily range): BP systolic 116–133; BP diastolic 58–78; PULSE 82–113; RESP 16–20; TEMP 35.7–36.9; O2SAT 88–100
[2025-01-05] MEDS: Albuterol/Iprat 2.5/0.5MG 3 ML AMPUL.NEB INHALE ×2 (00:07→22:56)
[2025-01-05] MEDS: Sodium Chloride 0.65 % Nasal 44 ML SPRBTL 1 SPRAY NOSTRIL-B ×3 (05:49→15:34)
[2025-01-05] MEDS: levalbuterol HCL 1.25 MG, Ipratropium Bromide 0.5 MG INHALE ×4 (06:01→18:49)
[2025-01-05 07:18] LABS: Glucose, Whole Blood 142 mg/dL (60-115)
--- NOTE | 2025-01-05 07:31 | P.DS_ITS ---
DS: Providers Provider Date of Service: 01/05/25 Date of admission: 01/01/25 01:40 Date of discharge: 01/05/25 Primary care physician: STEPHEN LazcanoP- Consults: 12/31/24 23:33 Addiction Medicine Provider Routine Consulting Provider: Addiction Covering Reason for consultation: cocaine use, ?triggering asthma/COPD Has provider been notified: No DS: Diagnosis Discharge Diagnosis (1) Cocaine use disorder: Status: Acute (2) Acute respiratory failure with hypoxia and hypercarbia: Status: Acute (3) Acute bronchospasm: Status: Acute DS: Summary Hospital Course Hospital Course: History and physical as per admitting provider. Patient is a 54-year-old female with a past medical history significant for obesity hypoventilation syndrome, chronic respiratory failure with hypoxia and hypercapnia on 3 L at home, HENRY on BiPAP at bedtime, moderate to severe COPD, type 2 diabetes on insulin, HTN, substance use disorder (crack cocaine), tobacco use disorder and class 2 obesity, who presented to the ED yesterday with cough, wheezing and COPD exacerbation, who returns today due to worsening shortness of breath. The patient reports a productive cough with yellow sputum as well as wheezing. She has been using prednisone at home without any improvement and feels that her symptoms are worsening. When EMS arrived the patient was saturating in the 80s on 3 L of oxygen. She denies any sore throat, chest pain, nausea, vomiting, abdominal pain, headache or rhinorrhea. She is not have any urinary symptoms. The patient has frequent admissions for respiratory issues including COPD exacerbations. 54-year-old woman treated for sepsis with acute on chronic respiratory failure w ith hypoxia and hypercapnia secondary to acute COPD exacerbation with obesity hypoventilation syndrome and continued cigarette smoking as well as use of crack cocaine. Patient was treated with IV steroids, scheduled bronchodilators and p.o. cefuroxime. She continued BiPAP for sleep and during naps but stated that she doesnt use it at home because it makes her feel worse. She continued her baseline oxygen. At this time patient is at baseline for her COPD and plan will be to discharge home. Patient is to continue her usual medications. Heart failure with reduced ejection fraction. No acute exacerbation. Continue Lasix Diabetes mellitus type 2. Continue home medications Hypertension. Continue losartan Mental health. Continue home medications Substance abuse disorder with crack cocaine. This likely exacerbation of her frequent COPD exacerbations. She was counseled on the importance of cessation. She was also seen and evaluated by the Addiction Medicine team during hos pitalization. Tobacco use disorder. Treated with nicotine replacement therapy. Discussed the importance of smoking cessation Obesity class 2. BMI 33.2. Discussed importance of weight management as this may be contributing to worsening of other comorbidities Time Attestation Discharge Coordination Time (in mins): 45 Quality: Safe Use of Opioids Does Pt have an Active Cancer Diagnosis on the Problem List?: No Quality: Stroke Does the patient have a stroke diagnosis?: No Physical Exam Vital Signs: Vital Signs: Last Vital Signs Temp 96.8 F 01/05/25 07:16 Pulse 108 H 01/05/25 07:16 Resp 20 01/05/25 07:16 BP 124/58 L 01/05/25 07:16 Pulse Ox 93 01/05/25 07:16 O2 Del Method Nasal Cannula 01/05/25 07:16 O2 Flow Rate 2 01/05/25 07:16 BMI result Body Mass Index 33.2 Appearing in no acute distress head is normocephalic atraumatic eyes pupils are PERRLA sclera is anicteric mouth throat mucous membranes are intact and moist neck is supple no lymphadenopathy, no JVD noted lung sounds are clear to auscultation heart regular rate rhythm, clear S1, S2 positive bowel sounds, abdomen is soft, nontender neuro patient is alert x3, no focal deficits DS: Data Data Completed and Pending Completed studies during hospitalization [Text1]: Procedures Assistance with Respiratory Ventilation, 24-96 Consecutive Hours, Continuous Positive Airway Pressure (10/30/24) Assistance with Respiratory Ventilation, Less than 24 Consecutive Hours, Continuous Positive Airway Pressure (12/18/24) Insertion of Endotracheal Airway into Trachea, Via Natural or Artificial Opening (10/30/24) Insertion of Infusion Device into Superior Vena Cava, Percutaneous Approach (11/03/20) Introduction of Vasopressor into Peripheral Vein, Percutaneous Approach (10/30/24) Respiratory Ventilation, Less than 24 Consecutive Hours (10/30/24) Labs on day of discharge: Laboratory Results - last 24 hr 01/04/25 01/04/25 01/04/25 11:17 16:16 20:30 POC Glucose 140 H 342 H 121 H 01/05/25 07:03 POC Glucose 142 H Preliminary micro results at discharge 12/31/24 21:35 Blood Culture - Preliminary Blood - Venous No growth after 48 hours. 12/31/24 21:35 Blood Culture - Preliminary Blood - Venous No growth after 48 hours. Discharge Plan Discharge Anticipated Discharge Date/Time: 01/06/25 07:31 Patient Disposition: Home Health Service Discharge Diagnosis: Sepsis Acute on chronic respiratory failure with hypoxia and hypercapnia Acute COPD exacerbation Referrals: Joe Hale, SOC[employer] INSURANCE ADMINISTRATOR-BC [Primary Care Provider, Internal Medicine] - 1 Week Discharge Medications: Continued (DME) cane Device See Rx Instructions .Route Qty: 1 0RF Rx Instructions: Standard cane (DME) Rollator walker See Rx Instructions .Route .MEDSUPPLY Qty: 1 0RF Rx Instructions: As directed (DME) pulse oximeter See Rx Instructions .Route .MEDSUPPLY Qty: 1 0RF Rx Instructions: As directed (DME) FreeStyle Jemima 3 [place] Misc See Rx Instructions .Route Qty: 1 0RF Rx Instructions: To monitor blood sugar 4 times per day albuterol sulfate 2.5 mg /3 mL (0.083 %) solution for nebulization 2.5 mg inhalation Q4H PRN (Reason: Shortness Of Breath/Wheezing) Qty: 180 6RF theophylline 400 mg tablet extended release 24 hr 400 mg PO BID 90 Days Qty: 180 4RF albuterol sulfate [Ventolin HFA] 90 mcg/actuation HFA aerosol inhaler 2 puff inhalation Q6H PRN (Reason: for wheezing) Qty: 1 6RF acetaminophen 650 mg tablet extended release 650 mg PO Q12H PRN (Reason: pain) 30 Days Qty: 60 0RF aspirin 81 mg tablet,delayed release (DR/EC) 81 mg PO DAILY 90 Days Qty: 90 1RF atorvastatin 40 mg tablet 40 mg PO BEDTIME Qty: 90 0RF (DME) FreeStyle Lite Strips Strip See Rx Instructions .ROUTE .MEDSUPPLY Qty: 100 1RF Rx Instructions: Use to check blood sugar daily or if symptomatic hypo/hypergylcemia calcium carbonate-vitamin D3 500 mg-10 mcg (400 unit) tablet 1 tab PO DAILY Qty: 90 0RF (DME) 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 meter [FreeStyle Lite Meter] Kit See Rx Instructions .ROUTE .MEDSUPPLY Qty: 1 0RF Rx Instructions: Use to check blood sugar daily or if symptomatic for hypo/hyperglycemia esomeprazole magnesium 40 mg capsule,delayed release(DR/EC) 40 mg PO DAILY@0630 Qty: 90 1RF fexofenadine [Elisabeth Allergy] 180 mg tablet 180 mg PO DAILY Qty: 30 3RF furosemide 20 mg tablet 20 mg PO DAILY Qty: 90 3RF glucose 4 gram tablet,chewable 16 g PO Q15M MDD 8 tabs PRN (Reason: hypoglycemia) Qty: 100 1RF Rx Instructions: until symptoms of low blood sugar are controlled ibuprofen 800 mg tablet 800 mg PO BID PRN (Reason: Headache) 30 Days Qty: 60 0RF Rx Instructions: please use sparingly due to diabetes (DME) lancets [FreeStyle Lancets] 28 gauge misc See Rx Instructions .ROUTE .MEDSUPPLY Qty: 100 1RF Rx Instructions: Use to check blood sugar daily or if symptomatic hypo/hypergylcemia losartan 50 mg tablet 50 mg PO DAILY Qty: 90 0RF (DME) FreeStyle Jemima 3 Plus Sensor Device See Rx Instructions .Route Qty: 2 5RF Rx Instructions: To monitor blood sugars 4 times per day. Change sensor every 15 days (DME) pen needle, diabetic 31 gauge x 5/16 needle See Rx Instructions .Route Qty: 100 0RF Rx Instructions: Use to inject insulin once a day tizanidine 4 mg tablet 4 mg PO Q12H 30 Days Qty: 60 0RF Rx Instructions: do not take concurrently with famotidine gabapentin 800 mg tablet 800 mg PO QID 30 Days Qty: 120 1RF ipratropium-albuterol 0.5 mg-3 mg(2.5 mg base)/3 mL solution for nebulization 3 ml INHALATION TID Qty: 180 0RF (DME) walker Misc See Rx Instructions .Route Qty: 1 0RF Rx Instructions: As directed sertraline 25 mg tablet 25 mg PO DAILY Rx Instructions: Taken with 100mg tab for TDD of 125mg. sertraline 100 mg tablet 100 mg PO DAILY Rx Instructions: TAKE WITH 25MG FOR TOTAL OF 125MG dextrose [Glucose Gel] 40 % gel 10 g PO Q15M PRN (Reason: hypoglycemia) Qty: 300 0RF Rx Instructions: until symptoms of low blood sugar are controlled glucagon HCl [Glucagon (HCl) Emergency Kit] 1 mg recon soln 1 mg subcut Q20M PRN (Reason: hypoglycemia) Qty: 1 0RF Rx Instructions: until target blood sugar attained Stiolto Respimat 2.5-2.5 mcg/actuation mist 2 puff inhalation DAILY naloxone [Narcan] 4 mg/actuation spray,non-aerosol 4 mg intranasal Q2M PRN (Reason: opioid overdose) Qty: 2 0RF Rx Instructions: spray 1 dose into ONE nostril; alternate nostrils w each dose until help arrives insulin glargine [Lantus Solostar U-100 Insulin] 100 unit/mL (3 mL) insulin pen 16 unit subcut BEDTIME quetiapine 50 mg tablet 50 mg PO BID topiramate 25 mg tablet 50 mg PO BID Rx Instructions: take one tab twice daily for one week, then increase to 2 tabs twice daily codeine-guaifenesin 10-100 mg/5 mL Liquid 5 ml PO Q6H PRN (Reason: Cough) Qty: 118 0RF prednisone 10 mg tablet 40 mg PO DIRECTED Qty: 120 0RF Rx Instructions: see taper instructions nicotine 21 mg/24 hr patch 24 hour 1 patch transdermal Q24H Qty: 28 0RF tramadol 50 mg tablet 50 mg PO Q6H PRN (Reason: pain) Qty: 20 0RF Discharge Orders: Discharge Order (Routine); Ordered 01/06/25 Ordered By: Macie Rhodes Diet: Advance to usual diet Activity on Discharge: As tolerated Stand Alone Forms: Patient Portal Discharge page Print Language: Angolan Care Plan Goals: Stop smoking cigarettes Do not use street drugs which can worsen your lung condition Continue using your baseline oxygen Continue BiPAP at nighttime and with naps Health Concerns: Sepsis Acute on chronic respiratory failure with hypoxia and hypercapnia Acute COPD exacerbation Plan of Treatment: Follow up with primary care provider as needed Take all medications as prescribed Assessment: See discharge summary
[2025-01-05] MEDS: Nicotine 14 MG PATCH.TD24 TRANSDERMA (08:16)
[2025-01-05] MEDS: Calcium + Vitamin D 250 MG TABLET 500 MG PO (08:16)
[2025-01-05] MEDS: Theophylline Anhydrous ER 400 MG TAB.ER.24H PO ×2 (08:17→20:43)
[2025-01-05] MEDS: Aspirin Enteric Coated 81 MG TABLET.DR PO (08:18)
[2025-01-05] MEDS: 0.9 % Sodium Chloride Flush 3 ML SYRINGE IVFLUSH ×2 (08:19→15:38)
--- NOTE | 2025-01-05 09:05 | P.PNIM_ITS ---
Subjective Subjective Date of Service: 01/05/25 Interval History: Seen and examined this morning Follow-up for respiratory failure Patient reports cough productive of yellow phlegm, shortness of breath reports that her breathing is worse with bipap Review of Systems Review of Systems: Yes all other systems are reviewed and are negative Constitutional Constitutional: Denies chills and Denies fever(s) Cardiovascular Cardiovascular: Denies chest pain and Reports dyspnea Respiratory Respiratory: Reports cough and Reports dyspnea Physical Exam 2 Vital Signs: Vital Signs: Last Vital Signs Temp 96.8 F 01/05/25 07:16 Pulse 108 H 01/05/25 07:16 Resp 20 01/05/25 07:16 BP 124/58 L 01/05/25 07:16 Pulse Ox 93 01/05/25 07:16 O2 Del Method Nasal Cannula 01/05/25 07:16 O2 Flow Rate 2 01/05/25 07:16 BMI result Body Mass Index 33.2 Appearing in no acute distress lung sounds mild exp wheezing heart regular rate rhythm, clear S1, S2 positive bowel sounds, abdomen is soft, nontender neuro patient is alert x3, no focal deficits Objective Data Active Medications Acetaminophen (Acetaminophen 325 Mg Tablet) 975 mg PO Q6H PRN PRN Reason: Pain, Mild 1-3,fever,headache Albuterol/Ipratropium (Albuterol/Iprat 2.5/0.5mg 3 Ml Ampul.Neb) 3 ml INHALE RQ4H WHILE AWAKE PRN PRN Reason: Shortness of Breath Last Admin: 01/05/25 00:07 Dose: 3 ml Documented By: AALIYAH Aspirin (Aspirin Enteric Coated 81 Mg Tablet.) 81 mg PO DAILY [facility] Last Admin: 01/05/25 08:18 Dose: 81 mg Documented By: ADDISON Atorvastatin Calcium (Atorvastatin Calcium 40 Mg Tablet) 40 mg PO BEDTIME [facility] Last Admin: 01/04/25 20:10 Dose: 40 mg Documented By: LULA Benzonatate (Benzonatate 100 Mg Capsule) 100 mg PO TID PRN PRN Reason: Cough Last Admin: 01/03/25 16:28 Dose: 100 mg Documented By: PHAN Calcium Carbonate (Calcium Carbonate 750 Mg Tab.Chew) 750 mg PO Q4H PRN PRN Reason: Heartburn Last Admin: 01/03/25 16:28 Dose: 750 mg Documented By: PHAN Calcium Carbonate/Cholecalciferol (Calcium + Vitamin D 250 Mg Tablet) 500 mg PO DAILY [facility] Last Admin: 01/05/25 08:16 Dose: 500 mg Documented By: ADDISON Comments: [id number] Cefuroxime Axetil (Cefuroxime Axetil 500 Mg Tablet) 500 mg PO Q12H [facility] Last Admin: 01/04/25 22:09 Dose: 500 mg Documented By: LULA Levalbuterol HCl 1.25 mg/ (Ipratropium Datto 0.5 mg) 0 mg INHALE RQ4H WHILE AWAKE [facility] Last Admin: 01/05/25 06:01 Dose: 1 dose Documented By: AALIYAH Dextrose (Dextrose 50 % 25 Gm/50 Ml Syringe) 25 gm IVPUSH Q15M PRN; Protocol PRN Reason: per Hypoglycemia Standing Ord. Enoxaparin Sodium (Enoxaparin Sodium 40 Mg/0.4 Ml Syringe) 40 mg SUBCUT BEDTIME [facility] Last Admin: 01/04/25 20:10 Dose: 40 mg Documented By: LULA Furosemide (Furosemide 20 Mg Tablet) 20 mg PO DAILY [facility]; Protocol Last Admin: 01/05/25 08:19 Dose: 20 mg Documented By: ADDISON Gabapentin (Gabapentin 400 Mg Capsule) 800 mg PO QID [facility] Last Admin: 01/05/25 08:17 Dose: 800 mg Documented By: ADDISON Glucose (Glucose Gel 15 Gm Gel..Gram.) 15 gm PO Q15M PRN; Protocol PRN Reason: per Hypoglycemia Standing Ord. Guaifenesin/Codeine Phosphate (Guaifen/Codeine Sf 200/20/10ml 10 Ml Liquid) 5 ml PO Q6H PRN PRN Reason: Cough Last Admin: 01/04/25 08:36 Dose: 5 ml Documented By: DEBRADONMike Ibuprofen (Ibuprofen 800 Mg Tablet) 800 mg PO BID PRN PRN Reason: Headache Insulin Glargine (Insulin Glargine,Hum.Rec.Anlog 100 Unit/Ml 10 Ml Vial) 16 unit SUBCUT BEDTIME [facility] Last Admin: 01/04/25 21:09 Dose: 16 unit Documented By: LULA Insulin Human Lispro (Insulin Lispro 100 Unit/Ml 3 Ml Vial) 0 - 10 unit SUBCUT QIDACHS [facility]; Protocol Last Admin: 01/05/25 07:48 Dose: Not Given Documented By: ADDISON Non-Admin Reason: No Insulin Coverage Loratadine (Loratadine 10 Mg Tablet) 10 mg PO DAILY [facility] Last Admin: 01/05/25 08:19 Dose: 10 mg Documented By: ADDISON Losartan Potassium (Losartan Potassium 50 Mg Tablet) 50 mg PO DAILY [facility]; Protocol Last Admin: 01/05/25 08:18 Dose: 50 mg Documented By: ADDISON Magnesium Hydroxide (Milk Of Magnesia 30 Ml Oral.Susp) 30 ml PO DAILY PRN PRN Reason: Constipation Last Admin: 01/03/25 20:38 Dose: 30 ml Documented By: LULA Melatonin (Melatonin 3 Mg Tablet) 6 mg PO BEDTIME PRN PRN Reason: Insomnia Methylprednisolone Sodium Succinate (Methylprednisolone Sod Succ 40 Mg Vial) 40 mg IVPUSH DAILY [facility] Last Admin: 01/05/25 08:16 Dose: 40 mg Documented By: ADDISON Morphine Sulfate (Morphine Sulfate 2 Mg/Ml Cartridge) 1 mg IVPUSH Q6H PRN; Protocol PRN Reason: Chest Pain Last Admin: 01/05/25 08:27 Dose: 1 mg Documented By: ADDISON Nicotine (Nicotine 14 Mg Patch.Td24) 14 mg TRANSDERMA DAILY [facility] Last Admin: 01/05/25 08:16 Dose: 14 mg Documented By: ADDISON Omeprazole (Omeprazole 20 Mg Capsule.Dr) 20 mg PO DAILY@0630 [facility] Last Admin: 01/05/25 05:16 Dose: 20 mg Documented By: LULA Ondansetron HCl (Ondansetron Hcl 4 Mg/2 Ml Vial) 4 mg IVPUSH Q8H PRN PRN Reason: Nausea and Vomiting Last Admin: 01/03/25 00:45 Dose: 4 mg Documented By: KULWANT Oxycodone HCl (Oxycodone Hcl Immed Release 5 Mg Tablet) 5 mg PO Q6H PRN PRN Reason: Pain, Severe (Pain Scale 7-10) Quetiapine Fumarate (Quetiapine Fumarate 50 Mg Tablet) 50 mg PO BID [facility] Last Admin: 01/05/25 08:18 Dose: 50 mg Documented By: ADDISON Senna (Sennosides 8.6 Mg Tablet) 17.2 mg PO BEDTIME PRN PRN Reason: Constipation Last Admin: 01/04/25 22:09 Dose: 17.2 mg Documented By: LULA Sertraline HCl (Sertraline Hcl 100 Mg Tablet) 100 mg PO DAILY [facility] Last Admin: 01/05/25 08:17 Dose: 100 mg Documented By: ADDISON Sertraline HCl (Sertraline Hcl 25 Mg Tablet) 25 mg PO DAILY [facility] Last Admin: 01/05/25 08:19 Dose: 25 mg Documented By: ADDISON Sodium Chloride (0.9 % Sodium Chloride Flush 3 Ml Syringe) 3 ml IVFLUSH QSHIFT [facility] Last Admin: 01/05/25 08:19 Dose: 3 ml Documented By: ADDISON Sodium Chloride (Sodium Chloride 0.65 % Nasal 44 Ml Sprbtl) 1 spray NOSTRIL-B Q1H PRN PRN Reason: Dry Nasal Passages Last Admin: 01/05/25 05:49 Dose: 1 spray Documented By: LULA Theophylline (Theophylline Anhydrous Er 400 Mg Tab.Er.24h) 400 mg PO BID [facility] Last Admin: 01/05/25 08:17 Dose: 400 mg Documented By: ADDISON Tizanidine HCl (Tizanidine Hcl 4 Mg Tablet) 4 mg PO Q12H [facility] Last Admin: 01/05/25 08:17 Dose: 4 mg Documented By: ADDISON Topiramate (Topiramate 25 Mg Tablet) 50 mg PO BID [facility] Last Admin: 01/05/25 08:17 Dose: 50 mg Documented By: ADDISON Tramadol HCl (Tramadol Hcl 50 Mg Tablet) 50 mg PO Q6H PRN PRN Reason: Pain, Moderate(Pain Scale 4-6) Labs 01/03/25 07:53 01/03/25 07:53 Labs: Laboratory Results - last 24 hr 01/04/25 01/04/25 01/04/25 11:17 16:16 20:30 POC Glucose 140 H 342 H 121 H 01/05/25 07:03 POC Glucose 142 H Assessment and Plan (1) Cocaine use disorder: Status: Acute (2) Acute respiratory failure with hypoxia and hypercarbia: Status: Acute (3) Acute bronchospasm: Status: Acute Plan 54-year-old female with a past medical history significant for obesity hypoventilation syndrome, chronic respiratory failure with hypoxia and hypercapnia on 3 L at home, HENRY on BiPAP at bedtime, moderate to severe COPD, type 2 diabetes on insulin, HTN, substance use disorder (crack cocaine), tobacco use disorder and class 2 obesity, who presented to the ED yesterday with cough, wheezing and COPD exacerbation, who returns today due to worsening shortness of breath. Sepsis with acute on chronic respiratory failure with hypoxia and hypercapnia secondary to acute COPD exacerbation with obesity hypoventilation syndrome. Sepsis resolved leukocytosis, tachycardic and tachypneic, lactic acid normal. not severe sepsis chest x-ray negative for pneumonia or pulmonary edema COVID/flu/RSV negative continue Solu-Medrol, levalbuterol/ipratropium, po cefuroxime patient does not want bipap continue baseline oxygen HFrEF no acute exacerbation continue lasix Type 2 diabetes Lantus, SSI, follow POCs, ADA diet Hypertension losartan Mood disorder continue home meds Substance use disorder>crack cocaine likely exacerbated COPD addiction med following Tobacco use disorder nicotine patch smoking cessation discussed Class 2 obesity BMI 33.2 weight loss encouraged Full code VTE prophylaxis: Lovenox DISPO PT eval for freq hospitalizations Quality Stroke Does the patient have a stroke diagnosis?: No VTE Prior VTE?: No VTE Risk Level:: Medical - moderate - high VTE Device Contraindication: Treatment Not Indicated VTE Drug Contraindication: N/A - Med Ordered
[2025-01-05 11:09] LABS: Glucose, Whole Blood 296 mg/dL (60-115)
[2025-01-05] MEDS: guaiFEN/Codeine SF 200/20/10ML 10 ML LIQUID 5 ML PO ×2 (12:08→20:42)
[2025-01-05 16:35] LABS: Glucose, Whole Blood 357 mg/dL (60-115)
[2025-01-05 20:39] LABS: Glucose, Whole Blood 109 mg/dL (60-115)
[2025-01-05] MEDS: Insulin Glargine,Hum.rec.anlog 100 UNIT/ML 10 ML VIAL 16 UNIT SUBCUT (20:43)
[2025-01-06] MEDS: 0.9 % Sodium Chloride Flush 3 ML SYRINGE IVFLUSH ×2 (00:45→07:47)
[2025-01-06 03:19] VITALS: BP 166/81; PULSE 97; RESP 20; TEMP 36.8; O2SAT 95
[2025-01-06 07:03] LABS: Glucose, Whole Blood 156 mg/dL (60-115)
[2025-01-06 07:15] VITALS: BP 143/66; PULSE 102; RESP 20; TEMP 36.1; O2SAT 93
[2025-01-06] MEDS: levalbuterol HCL 1.25 MG, Ipratropium Bromide 0.5 MG INHALE ×2 (07:34→11:19)
[2025-01-06 07:36] VITALS: PULSE 102; RESP 19; O2SAT 93
[2025-01-06] MEDS: Nicotine 14 MG PATCH.TD24 TRANSDERMA (07:45)
[2025-01-06] MEDS: Aspirin Enteric Coated 81 MG TABLET.DR PO (07:46)
[2025-01-06] MEDS: Theophylline Anhydrous ER 400 MG TAB.ER.24H PO (07:46)
[2025-01-06] MEDS: Calcium + Vitamin D 250 MG TABLET 500 MG PO (07:47)
--- NOTE | 2025-01-06 09:51 | MHC.CM.PN ---
Addendum entered by Josy Rodgers 01/06/25 11:54: CORRECTION: Patient is not active with [facility] and they are unable to accept Patient. [facility] and they have been made aware of today's dc. Original Note: Patient has been medically cleared for dc to home today, with services. Patient is active with [facility], who has been made aware of today's dc. Patient will dc to home today at 12:30 PM, via [facility].
[2025-01-06 10:52] VITALS: BP 125/69; PULSE 107; RESP 20; TEMP 36.3; O2SAT 93
[2025-01-06 11:09] LABS: Glucose, Whole Blood 150 mg/dL (60-115)
[2025-01-06 11:25] VITALS: PULSE 102; RESP 19; O2SAT 99
[2025-01-06] MEDS: Sodium Chloride 0.65 % Nasal 44 ML SPRBTL 1 SPRAY NOSTRIL-B (11:42)
--- NOTE | 2025-01-06 11:51 | W.MHC.F2F ---
Service Date Service Date: 01/06/25 Encounter Date of encounter: 01/06/25 Reasons for Services Signs and symptoms assessed: Acute hypoxic respiratory failure secondary to COPD Exacerbation Reason for custodial: CV/CP assess and/or care Homebound: Leaving the home is medically contraindicated at this time without the asist of a device and/or another person due th the listed conditions above and below. Reason homebound: unsteady gait / fall risk and shortness of breath with minimal effort (Oxygen-dependent) Certification: Based on the above findings, I certify that this patient is confined to the home and needs intermittent custodial care, physical therapy and/or speech therapy, or continues to need occupational therapy. The patient is under my care, and I have initiated the establishment of the plan of care. The patient will be followed by a physician who will periodically review the plan of care. Time Spent With Patient Time: Total time managing care of this patient today ____ minutes.
== END 2025-01-06 12:57 | disposition home health service (06) | DRG 720 ==
LOC: HO.ED 22:51 → HO.EDOVER 01-01 01:41 → HO.IMC 01-01 01:57
PROVIDERS: Hospitalist; Physician Assistant Medical; Admitting Provider Physician Assistant; Emergency Provider Emergency Medicine; PCP Nurse Practitioner Family; Visit Provider Nurse Practitioner Acute Care
DX: A41.9 Sepsis, unspecified organism (principal); J96.21 Acute and chronic respiratory failure with hypoxia; Z99.81 Dependence on supplemental oxygen; F14.10 Cocaine abuse, uncomplicated; J96.22 Acute and chronic respiratory failure with hypercapnia; E66.2 Morbid (severe) obesity with alveolar hypoventilation; Z68.33 Body mass index [BMI] 33.0-33.9, adult; E11.9 Type 2 diabetes mellitus without complications; F39 Unspecified mood [affective] disorder; J44.1 Chronic obstructive pulmonary disease with (acute) exacerbation; F15.90 Other stimulant use, unspecified, uncomplicated; Z20.822 Contact with and (suspected) exposure to COVID-19; Z79.4 Long term (current) use of insulin; Z79.82 Long term (current) use of aspirin; Z79.899 Other long term (current) drug therapy
CPT/HCPCS: 36415; 71045; 74176; 76705; 80048; 80053; 80076; 80307; 81001; 82803; 82947; 83605; 83880; 84145; 84484; 85025; 85379; 87040; 87637; 93005; 94640; 94660; 97162; 99285; J1171; J1650; J1956; J2270; J2405; J2919; J3475; S9485

== ENCOUNTER → 2024-12-31 21:03 | Outpatient (BNV) | payer OTHER, SELFPAY | PROVIDERS: Admitting Provider Physician Assistant; Emergency Provider Emergency Medicine; Visit Provider Internal Medicine Cardiovascular Disease | DX: I49.1 Atrial premature depolarization (principal); R00.0 Tachycardia, unspecified | CPT/HCPCS: 93010 ==

== ENCOUNTER → 2024-12-31 21:04 | Outpatient (BNV) | payer OTHER, SELFPAY | PROVIDERS: Emergency Provider Emergency Medicine; Visit Provider Radiology Vascular & Interventional Radiology | DX: R06.02 Shortness of breath (principal) | CPT/HCPCS: 71045 ==

== ENCOUNTER 2025-01-01 01:40 | Outpatient (BNV) | payer OTHER, SELFPAY | END 2025-01-01 19:51 | PROVIDERS: Admitting Provider Physician Assistant; Emergency Provider Emergency Medicine; Visit Provider Internal Medicine Cardiovascular Disease | DX: I49.1 Atrial premature depolarization (principal); R00.0 Tachycardia, unspecified | CPT/HCPCS: 93010 ==

== ENCOUNTER 2025-01-08 19:27 | Inpatient (IN) | payer OTHER, SELFPAY ==
--- NOTE | ~2025-01-08 | XR_ITS ---
CLINICAL HISTORY: SOB 1 view chest x-ray Comparison: Chest x-ray from 12/31/2024 Findings: New mild pulmonary opacities are nonspecific and may reflect pulmonary edema or pneumonitis given interstitial predominance. Likely small left pleural effusion. No pneumothorax. Imaged mediastinum and imaged osseous structures appear unchanged. Calcification adjacent to the left humerus likely due to calcific tendinitis. IMPRESSION: Mild interstitial opacities are nonspecific and can be seen with pulmonary edema and pneumonitis. This document has been electronically signed by: Bhupendra Sorto MD on 01/08/2025 20:17:00
--- NOTE | ~2025-01-08 | CT_ITS ---
CLINICAL HISTORY: abdominal pain, multiple hernias CT abdomen and pelvis without contrast Comparison: US - US ABDOMEN LIMITED - 01/09/25 08:[address]/SR - CT ABDOMEN PELVIS W IV CON - 07/13/24 16:39 EST Findings: The heart is enlarged. Calcific atherosclerosis, including the coronary arteries. Lung bases are clear other than subsegmental atelectasis. Cholecystectomy. Bilateral subcentimeter adrenal nodules, which are too small to characterize. Bilateral renal scarring versus persistent lobulation. Punctate bilateral renal vascular calcifications versus nonobstructing stones. Operative changes of ventral hernia repair with multiple residual/recurrent fat containing ventral hernias in the midline, described on the recent abdominal ultrasound. No bowel is contained within these hernias. No bowel obstruction. Normal appendix. Pelvic structures unremarkable. Old healed posterolateral left 9th rib fracture. Degenerative change of the spine with grade 1 degenerative anterolisthesis of L4 on L5. Mild right worse than left hip osteoarthritis. A small focus of avascular necrosis is reidentified within the left femoral head. IMPRESSION: 1. No acute intra-abdominal findings. 2. Operative changes of ventral hernia repair with multiple residual/recurrent fat containing hernias. No bowel is contained within these hernias and there is no bowel obstruction. 3. Chronic and incidental findings as above. This document has been electronically signed by: Alex Oseguera DO on 01/10/2025 11:56:59
--- NOTE | ~2025-01-08 | US_ITS ---
CLINICAL HISTORY: umbilical hernia issue, pt has pain with coughing, --- Additional Notes or Special Instructions: per ordering provider, can be done in AM @10:50am Ultrasound anterior abdominal wall Comparison: CT/SR - CT ABDOMEN PELVIS W IV CON - 07/13/24 16:39 EST Findings: At the umbilicus there is a fat containing hernia with defect measuring 9 mm, which appears reducible. This is the largest seen hernia. There are 6 other small midline ventral hernias seen in the supraumbilical ventral region which all appear to have narrow necks, contain vascular flow and appear reducible with pressure, all containing peritoneal fat. No bowel loops seen within hernia sacs. Impression: There are 7 fat containing umbilical or supraumbilical midline ventral hernias. This document has been electronically signed by: Ananda Charlton MD on 01/09/2025 13:23:16
[2025-01-08 19:38] VITALS: BP 110/70; BP 128/77; PULSE 80; PULSE 96; RESP 16; TEMP 36.9; O2SAT 92; BMI 34.5
[2025-01-08 19:43] VITALS: BP 128/77; PULSE 96; RESP 16; TEMP 36.9; O2SAT 92
--- NOTE | 2025-01-08 19:44 | ECG_ITS ---
Test Reason : dyspnea Blood Pressure : */* mmHG Vent. Rate : 105 BPM Atrial Rate : 105 BPM P-R Int : 116 ms QRS Dur : 86 ms QT Int : 338 ms P-R-T Axes : * 152 70 degrees QTcB Int : 446 ms Sinus tachycardia with occasional Premature ventricular complexes Right axis deviation Possible Right ventricular hypertrophy Abnormal ECG When compared with ECG of 01-Jan-2025 19:51, Premature ventricular complexes are now Present Premature supraventricular complexes are no longer Present Referred By: Lyric Vargas Electronically Signed By: Dallin [place]
[2025-01-08] MEDS: Albuterol Sulfate 7.5 MG, Albuterol/Iprat 2.5/0.5MG 3 ML 3 ML INHALE (19:45)
[2025-01-08 19:47] VITALS: PULSE 86; RESP 22; O2SAT 92
[2025-01-08 20:09] LABS: MANUAL DIFF FLAG NO
[2025-01-08 20:10] LABS: Hematocrit 32.2 % (37.0-47.0); Hemoglobin 9.2 g/dl (12.0-16.0); Imm Gran Abs Auto 0.08 X10*3/uL (0.00-0.03); Imm Gran Pct Auto 0.6 % (0.0-0.4); Lymphocytes Absolute Auto 3.6 X10*3/uL (1.2-4.9); Mean Corpuscular HGB Conc 28.6 g/dl (31.0-35.0); Mean Corpuscular Hemoglobin 20.6 pg (27.0-33.0); Mean Corpuscular Volume 72.2 fL (80.0-98.0); NRBC Abs Auto 0.000 X10*3/uL (0.0-0.012); NRBC Pct Auto 0.0 /100WBC (0.0-0.2); Platelet Count 373 X10*3/uL (160-400); Red Blood Count 4.46 X10*6/uL (4.20-5.50); White Blood Count 14.4 X10*3/uL (4.8-10.8)
[2025-01-08 20:13] LABS: VBG HCO3 32 mmol/L (22-26); VBG O2 % Saturation 93.0 %
[2025-01-08 20:13] LABS: Venous Blood Gas Refer to POC result
[2025-01-08] MEDS: Magnesium Sulfate/H2O 2 GM/50 ML PIGGYBACK IV (20:14)
[2025-01-08 20:25] LABS: Anion Gap 13 (12-20); Blood Urea Nitrogen 22 mg/dL (9-16); Calcium 8.6 mg/dL (8.4-10.2); Carbon Dioxide 29 mmol/L (22-29); Chloride 101 mmol/L (96-108); Creatinine Clr Calc Pharmacy 73.4; Estimated Glomerular Filt Rate > 60; Potassium 3.7 mmol/L (3.3-5.1); Sodium 139 mmol/L (135-145)
[2025-01-08 20:33] LABS: B Type Natriuretic Peptide 64 pg/mL (<100)
[2025-01-08 20:34] LABS: Troponin-I High Sensitivity 22.3 ng/L (<3.5-17.0)
[2025-01-08 20:40] VITALS: BP 109/71; PULSE 81; RESP 20; TEMP 36.7; O2SAT 95
[2025-01-08 20:41] VITALS: BP 109/79; PULSE 100; RESP 14; TEMP 36.7; O2SAT 92
[2025-01-08 20:49] LABS: Resp Syncy Virus RNA Qual PCR NEGATIVE (Negative); SARS COV2 PCR INHOUSE NEGATIVE (Negative)
[2025-01-08 21:33] LABS: Cannabinoid Screen Urine Not Detected (Not Detect)
--- NOTE | 2025-01-08 21:46 | PM.IMHP ---
History of Present Illness Date of Service: 01/08/25 Attending physician on admission: Maureen Coelho Chief Complaint: dyspnea Patient is a 54-year-old female with past medical history severe asthma/COPD on home O2 2-3 L, HENRY noncompliant with nocturnal BiPAP, substance abuse to include crack cocaine, tobacco dependence, systolic congestive heart failure/ HFrEF 40-45%, stress-induced cardiomyopathy, hypertension, obesity, insulin-dependent diabetes, GERD, umbilical hernia, hyperlipidemia presents to the emergency department with complaints of worsening dyspnea. Patient states that she can not tolerate the BiPAP as she feels she can not catch her breath. Patient was discharged from [facility] on January 06 and used crack cocaine the same day. Patient stated she did not have a taste for it and did not use anymore after that day. In addition patient has been smoking less cigarettes because she does not have a taste for that as well. Patient has been on topiramate and appears to be helping with her crack cocaine use. Patient does report having air conditioning in her apartment. Patient has not done any traveling or been exposed to anybody with respiratory illness since discharge. Patient now has a nurse coming in daily and the nurse assess the patient earlier today and felt the patient need to be seen in the emergency department for further evaluation. Chest x-ray indicates possible pneumonitis versus pulmonary edema. BNP is normal. Patient has been on oral prednisone which could explain her leukocytosis. UA is currently pending. Patient denies any current chest pain, fever, chills, nausea and diarrhea. All viral studies are negative to include influenza A and B, COVID and RSV. Patient is reporting abdominal pain which is worsening and feels it is related to her umbilical hernia. The area especially hurts when she coughs. Patient does not want to be seen by addictions this admission as she feels the topiramate is helping. Patient has a plan for discharge where she will be staying with her daughter for 3 weeks and may stay there permanently to help get away from her sister who also uses crack cocaine. In addition patient will continue with daily nursing services at her new location most likely. Patient does have some insight regarding the connection between crack cocaine use in her respiratory disease. Patient does not want to keep returning to the hospital. Patient remains hopeful that things will turn around and get better. Patient is not feeling suicidal today. Patient does live with chronic anxiety but states her anxiety is currently controlled. Patient often feels the most anxious when she is on her BiPAP machine. Patient does have an upcoming appointment with her vp patient as an outpatient on January 14 which her daughter will be taking her to. She plans to have a [id number] discussion with her vp patient regarding treatment options and prognosis. Review of Systems Review of Systems: Patient currently denies chest pain, is reporting mild shortness of breath at rest it is reporting abdominal pain especially where her umbilical hernia is present and it hurts mostly when she coughs. Patient denies any headache, visual changes, nausea, vomiting, diarrhea. Patient is not having any issues with constipation. Patient denies any fever, chills or night sweats. [facility] Medical History Chronic lung disease Chronic lung disease BAHMAN (generalized anxiety disorder) COPD (chronic obstructive pulmonary disease) Cocaine use disorder Cocaine abuse GERD (gastroesophageal reflux disease) Constipation Non-insulin dependent type 2 diabetes mellitus HENRY (obstructive sleep apnea) Acute exacerbation of chronic obstructive airways disease Asthma with exacerbation Obesity hypoventilation syndrome Chronic lung disease Hypoxic respiratory failure Nocturnal hypoxemia Diabetes mellitus COPD exacerbation Crack cocaine use Hyperkalemia Metabolic acidosis Leukocytosis Chest discomfort Chronic renal failure, stage 2 (mild) SOB (shortness of breath) Asthma Smoker Rotator cuff tendonitis GERD (gastroesophageal reflux disease) Chronic idiopathic constipation Bustos's esophagus Depression High triglycerides Gastroparesis Carpal tunnel syndrome of right wrist Nausea & vomiting Hernia Acute and chronic respiratory failure, unspecified whether with hypoxia or hypercapnia HTN (hypertension) Obesity (BMI 30-39.9) Knee pain, bilateral Functional capacity: uses cane/walker Patient : No Family History Father Heart disease HENRY (obstructive sleep apnea) Family history of breast cancer Mother Asthma Emphysema, unspecified Bronchitis Smoker Alcoholism Bone marrow disease Maternal Grandmother Diabetes Surgical History History of cholecystectomy (~1988) History of carpal tunnel release Hx of tubal ligation History of pubovaginal sling (~2015) History of umbilical hernia repair (~2001) Hx of section History of open reduction and internal fixation (ORIF) procedure History of esophagogastroduodenoscopy (EGD) Social History Household Members: Other Household Members Other:: sister Housing: House Housing Other:: 3 family house Are you a primary respiratory care assistant to a significant other at home: No Do you presently have visiting nurse or other home services: Yes Unable to assess alcohol history related to: Unknown Alcohol intake: never Comment: refusing socks Patient Tobacco Use Status: Current everyday Tobacco user Tobacco use type: Cigarette Cigarette Packs Per Day: 0.5 Cigarettes Per Day: 10.0 Years Smoked: 40 Smoked in Last 30 Days: Yes e-Cigarette/Vaping Use: Currently Using Second Hand Smoke Exposure: Yes Use of substances other than those prescribed or required for medical reasons: Yes Substance Use Type: Crack/Cocaine Advance Directives: Yes Advance Directives on File: Yes Advance Directives Date on File: 12/19/23 Patient : No service: No Current occupational status: disabled 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 Ebola Risk: Travel/Contact With Anyone From Affected Area/s: No Has Patient Experienced Ebola Symptoms: No Meds Allergies Allergy/AdvReac Type Severity Reaction Status Date / Time doxycycline Allergy Severe Swelling Verified 01/08/25 19:41 varenicline (From CHANTIX) Allergy Severe ANAPHYLAXIS Verified 01/08/25 19:41 azithromycin Allergy Intermediate Rash Verified 01/08/25 19:41 barium sulfate Allergy Intermediate angioedema Verified 01/08/25 19:41 cetirizine Allergy Mild Rash Verified 01/08/25 19:41 famotidine Allergy Mild Rash Verified 01/08/25 19:41 linaclotide (Linzess) Allergy Mild Rash Verified 01/08/25 19:41 Active Medications: Current Medications Acetaminophen (Acetaminophen 325 Mg Tablet) 650 mg PO Q6H PRN PRN Reason: Pain, Mild 1-3,fever,headache Albuterol/Ipratropium (Albuterol/Iprat 2.5/0.5mg 3 Ml Ampul.Neb) 3 ml INHALE Q4H PRN PRN Reason: Shortness of Breath/Wheezing Calcium Carbonate (Calcium Carbonate 750 Mg Tab.Chew) 750 mg PO Q4H PRN PRN Reason: Heartburn Dextrose (Dextrose 50 % 25 Gm/50 Ml Syringe) 25 gm IVPUSH Q15M PRN; Protocol PRN Reason: per Hypoglycemia Standing Ord. Glucose (Glucose Gel 15 Gm Gel..Gram.) 15 gm PO Q15M PRN; Protocol PRN Reason: per Hypoglycemia Standing Ord. Insulin Glargine (Insulin Glargine,Hum.Rec.Anlog 100 Unit/Ml 10 Ml Vial) 16 unit SUBCUT DAILY [facility] Insulin Human Lispro (Insulin Lispro 100 Unit/Ml 3 Ml Vial) 0 unit SUBCUT QIDACHS [facility]; Protocol Magnesium Hydroxide (Milk Of Magnesia 30 Ml Oral.Susp) 30 ml PO DAILY PRN PRN Reason: Constipation Melatonin (Melatonin 3 Mg Tablet) 6 mg PO BEDTIME PRN PRN Reason: Insomnia Methylprednisolone Sodium Succinate (Methylprednisolone Sod Succ 125 Mg/2 Ml Vial) 60 mg IVPUSH Q12H [place] Ondansetron HCl (Ondansetron Hcl 4 Mg/2 Ml Vial) 4 mg IVPUSH Q8H PRN PRN Reason: Nausea and Vomiting Polyethylene Glycol (Polyethylene Glycol 3350 17 Gm Powd.Pack) 17 gm PO DAILY PRN PRN Reason: Constipation Senna (Sennosides 8.6 Mg Tablet) 17.2 mg PO BEDTIME [place] Sodium Chloride (0.9 % Sodium Chloride Flush 3 Ml Syringe) 3 ml IVFLUSH QSHIFT [facility] Home Medications ?Medication ?Instructions ?Recorded ?Confirmed ?Last Taken ?Type sertraline 100 mg tablet 100 mg PO DAILY 11/12/24 01/01/25 12/16/24 History sertraline 25 mg tablet 25 mg PO DAILY 11/12/24 01/01/25 12/16/24 History tiotropium 2.5 mcg-olodaterol 2.5 2 puff inhalation DAILY 11/26/24 01/01/25 12/16/24 History mcg/actuation mist for inhalation (Stiolto Respimat) insulin glargine 100 unit/mL (3 16 unit subcut BEDTIME 12/01/24 01/01/25 12/16/24 History mL) subcutaneous pen (Lantus Solostar U-100 Insulin) quetiapine 50 mg tablet 50 mg PO BID 12/18/24 01/01/25 12/16/24 History topiramate 25 mg tablet 50 mg PO BID 0601/01/25 12/16/24 History Physical Exam Vital Signs and Narrative: Vital Signs: Last Vital Signs Temp 98.1 F 01/08/25 20:41 Pulse 100 01/08/25 20:41 Resp 14 01/08/25 20:41 BP 109/79 01/08/25 20:41 Pulse Ox 92 01/08/25 20:41 O2 Del Method Nasal Cannula 01/08/25 20:41 O2 Flow Rate 2 01/08/25 20:41 Oxygen Flow Rate 2 01/08/25 19:38 BMI result Body Mass Index 34.5 Alert and orientated X3, able to give good history. Work of breathing appears normal when conversation with patient Neuro: CN II-X11 intact, no deficits, visual acuity intact EYES: PERRLA, EOM intact, sclerae nonicteric, conjunctiva pink ENT: hearing intact, no issues with swallowing, uvula midline, lips moist, nares patent no epistaxis Cardiac: S1 S2 RRR, rate 96, no murmur, no JVD, no edema in Lower ext Pulmonary: lungs bilateral expiratory wheeze, diminished at the base Abdominal: BS active in all 4 quadrants, tenderness noted in the umbilical area with a umbilical hernia present and not reducible golfball sized, no guarding noted MSK: strength 4/5 upper and lower extremities : no CVA tenderness no bladder distension Extremities: no edema in lower extremities, PT and DP pulses palpable +2 Psych: mood stable, judgement and insight good Skin: Intact, no report of new open wounds Results Labs 01/08/25 20:04 01/08/25 20:04 Labs: Laboratory Results - last 24 hr 01/08/25 01/08/25 01/08/25 20:04 20:08 21:19 MCV 72.2 L MCH 20.6 L MCHC 28.6 L RDW 17.7 H Plt Count 373 MPV 8.7 L Immature Gran % (Auto) 0.6 H Neut % (Auto) 65.5 Lymph % (Auto) 24.7 Woodson % (Auto) 8.3 Eos % (Auto) 0.7 Baso % (Auto) 0.2 Lymph # (Auto) 3.6 Woodson # (Auto) 1.2 Eos # (Auto) 0.1 Baso # (Auto) 0.0 Abs Immat Gran (auto) 0.08 H Absolute Neuts (auto) 9.5 H Absolute Nucleated RBC 0.000 Nucleated RBC % (auto) 0.0 VBG pH 7.42 VBG pCO2 48 VBG pO2 70 VBG HCO3 32 H VBG O2 Saturation 93.0 VBG Base Excess 6.9 Anion Gap 13 Estim Creat Clear Calc 73.4 Estimated GFR > 60 Random Glucose 194 H Calcium 8.6 B-Natriuretic Peptide 64 Urine Opiates Screen POSITIVE H Ur Buprenorphine Scrn Not Detected Ur Oxycodone Screen Not Detected Urine Methadone Screen Not Detected Urine Fentanyl Screen Not Detected Ur Barbiturates Screen Not Detected Ur Phencyclidine Scrn Not Detected Ur Amphetamines Screen Not Detected U Benzodiazepines Scrn Not Detected Urine Cocaine Screen POSITIVE H U Marijuana (THC) Screen Not Detected Ethyl Alcohol < 10 Influenza Type A (PCR) NEGATIVE Influenza Type B (PCR) NEGATIVE RSV RNA Qual (PCR) NEGATIVE SARS-CoV-2 RNA (RT-PCR) NEGATIVE ECG Attestation: I personally reviewed and interpreted this ECG as follows: (Sinus tachycardia, occasional PVCs, QTC 446) Prior ECG tracings: available for review Imaging Comment: CXR Findings: New mild pulmonary opacities are nonspecific and may reflect pulmonary edema or pneumonitis given interstitial predominance. Likely small left pleural effusion. No pneumothorax. Imaged mediastinum and imaged osseous structures appear unchanged. Calcification adjacent to the left humerus likely due to calcific tendinitis. IMPRESSION: Mild interstitial opacities are nonspecific and can be seen with pulmonary edema and pneumonitis. Assessment and Plan (1) COPD exacerbation: Status: Acute Plan Patient is a 54-year-old female with past medical history severe asthma/COPD on home O2 2-3 L, HENRY noncompliant with nocturnal BiPAP, substance abuse to include crack cocaine, tobacco dependence, systolic congestive heart failure/ HFrEF 40-45%, stress-induced cardiomyopathy, hypertension, obesity, insulin-dependent diabetes, GERD, umbilical hernia, hyperlipidemia presents to the emergency department with complaints of dyspnea after being seen by her nurse in the home setting. Patient's nurse advocated for patient to be seen today. Patient was recently discharged on 01/06/2025. Patient did admit to using crack cocaine on 01/06/2025 only. COPD exacerbation/ pneumonitis Patient received methylprednisolone 125 and we will continue with 60 mg b.i.d. Magnesium 2 g IV provided Oxygen via nasal cannula humidified, BiPAP at HS Duo neb treatments prn Budesonide b.i.d. Incentive Spirometer ordered No antibiotics considered at this time, all viral studies are negative Patient has outpatient appointment January 14 with vp patient Mariza Adamscine use Patient states that although she did use crack cocaine on her day of discharge from the hospital, she feels that topiramate is helping and she does not have a taste for the drug?. Patient does have the desire to stop. Patient has plan to stay with her daughter for the next 3 weeks upon discharge where access to crack cocaine is likely non-existent. Patient states she may be able to stay there permanently. Patient defers need for addictions consultation this admission. Patient does want to continue the topiramate as ordered. We will continue to treat patient's anxiety as needed as anxiety does prompt patient to want to use crack cocaine. Abdoiminal pain with known ventral/inguinal hernia repair and small fat containing umbilical hernia Abdominal pain with coughing relatively new symptom per patient Clinical exam reassuring with only mild tenderness with palpation and patient is pain-free at rest and appears comfortable. Small umbilical hernia is palpated and is unreducible. Ultrasound of the abdomen will be ordered Leukocytosis Likely secondary to oral prednisone treatment Patient has no fever or chills UA is pending, patient denies any symptoms of dysuria or burning with urination Noted above abdominal pain, we will check lactic acid to ensure level is normal Follow CBC No antibiotics started at this time HFrEF 40-45% Lasix 20 mg daily Losartan 50 mg daily Daily weights Low-sodium diet Fluid allowance 1500 mls Hyperlipidemia Atorvastatin 40 mg HS LFTs are stable IDDM Sliding scale insulin Lantus daily Diabetic diet Anxiety Seroquel 50 mg b.i.d. Sertraline 100 mg daily QTC within normal limits Constipation MiraLax PRN Senna at HS GERD Omeprazole DVT prophylaxis: Lovenox Med rec pending Full Code status Quality Stroke Does the patient have a stroke diagnosis?: No Reason for No Anti-thrombotic by Day Two: N/A - Med Ordered VTE Prior VTE?: No VTE Risk Level:: Medical - moderate - high VTE Device Contraindication: N/A - Device Ordered VTE Drug Contraindication: N/A - Med Ordered
--- NOTE | 2025-01-08 22:05 | ED.SOB ---
HPI - SOB/Dyspnea General Chief Complaint: Dyspnea Stated Complaint: sob Time Seen by Provider: 01/08/25 19:32 History of Present Illness HPI Narrative: Patient is a 54-year-old female with a history of cocaine abuse. History of history of bronchial spasm. Presented today after leaving the hospital 3 days ago elected to use crack cocaine and then felt short of breath again. Patient came back in for further evaluation. Baseline not on oxygen at home. Baseline has bronchial spasms. History of diabetes. Noncompliant with medication. Long history of smoking. History of congestive heart failure. No new leg swelling. No chest pain. No diaphoresis. Related Data Home Medications ?Medication ?Instructions ?Recorded ?Confirmed sertraline 100 mg tablet 100 mg PO DAILY 11/12/24 01/01/25 sertraline 25 mg tablet 25 mg PO DAILY 11/12/24 01/01/25 tiotropium 2.5 mcg-olodaterol 2.5 2 puff inhalation DAILY 11/26/24 01/01/25 mcg/actuation mist for inhalation (Stiolto Respimat) insulin glargine 100 unit/mL (3 16 unit subcut BEDTIME 12/01/24 01/01/25 mL) subcutaneous pen (Lantus Solostar U-100 Insulin) quetiapine 50 mg tablet 50 mg PO BID 12/18/24 01/01/25 topiramate 25 mg tablet 50 mg PO BID 12/18/24 01/01/25 Previous Rx's ?Medication ?Instructions ?Recorded walker #1 ea 07/14/24 Rollator walker #1 ea 09/16/24 cane #1 ea 09/16/24 pulse oximeter #1 ea 09/16/24 FreeStyle Jemima 3 [place] #1 ea 09/22/24 (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,lab coordinator,cont) nicotine 21 mg/24 hr daily 1 patch transdermal Q24H #28 ea 10/01/24 transdermal patch tramadol 50 mg tablet 50 mg PO Q6H PRN pain #20 tabs 10/12/24 albuterol sulfate 2.5 mg/3 mL 2.5 mg (3 mL) inhalation Q4H PRN 11/09/24 (0.083 %) solution for nebulization Shortness Of Breath/Wheezing #180 mL albuterol sulfate 90 mcg/actuation 2 puff inhalation Q6H PRN for 11/09/24 aerosol inhaler (Ventolin HFA) wheezing #1 ea theophylline 400 mg 400 mg PO BID 90 days #180 tabs 11/09/24 tablet,extended release 24 hr acetaminophen 650 mg 650 mg PO Q12H PRN pain 30 days 11/12/24 tablet,extended release #60 tabs aspirin 81 mg tablet,delayed 81 mg PO DAILY 90 days #90 tabs 11/12/24 release atorvastatin 40 mg tablet 40 mg PO BEDTIME #90 tabs 11/12/24 blood sugar diagnostic (FreeStyle #100 ea 11/12/24 Lite Strips) 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 meter (FreeStyle #1 ea 11/12/24 Lite Meter kit) calcium 500 mg (as 1 tab PO DAILY #90 tabs 11/12/24 carbonate)-vitamin D3 10 mcg (400 unit) tablet esomeprazole magnesium 40 mg 40 mg PO DAILY@0630 #90 caps 11/12/24 capsule,delayed release fexofenadine 180 mg tablet 180 mg PO DAILY #30 tabs 11/12/24 (Elisabeth Allergy) furosemide 20 mg tablet 20 mg PO DAILY #90 tabs 11/12/24 glucose 4 gram chewable tablet 16 g (4 x 4 gram) PO Q15M PRN 11/12/24 hypoglycemia #100 tabs ibuprofen 800 mg tablet 800 mg PO BID PRN Headache 30 days 11/12/24 #60 tabs lancets 28 gauge (FreeStyle #100 ea 11/12/24 Lancets) losartan 50 mg tablet 50 mg PO DAILY #90 tabs 11/12/24 dextrose 40 % oral gel (Glucose 10 g PO Q15M PRN hypoglycemia #300 11/13/24 Gel) grams glucagon HCl 1 mg solution for 1 mg subcut Q20M PRN hypoglycemia 11/13/24 injection (Glucagon (HCl) #1 ea Emergency Kit) FreeStyle Jemima 3 Plus Sensor #2 ea 11/17/24 (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 sensor) naloxone 4 mg/actuation nasal 4 mg intranasal Q2M PRN opioid 11/27/24 spray (Narcan) overdose #2 ea pen needle, diabetic 31 gauge x #100 ea 11/30/24 5/16 tizanidine 4 mg tablet 4 mg PO Q12H muscle spasm 30 days 12/05/24 #60 tabs codeine 10 mg-guaifenesin 100 mg/5 5 ml PO Q6H PRN Cough #118 mL 12/21/24 mL oral liquid prednisone 10 mg tablet 40 mg (4 x 10 mg) PO DIRECTED 12/21/24 #120 tabs gabapentin 800 mg tablet 800 mg PO QID Pain 30 days #120 12/22/24 tabs ipratropium 0.5 mg-albuterol 3 mg 3 ml inhalation TID #180 mL 12/30/24 (2.5 mg base)/3 mL nebulization soln Allergies Allergy/AdvReac Type Severity Reaction Status Date / Time doxycycline Allergy Severe Swelling Verified 01/08/25 19:41 varenicline (From CHANTIX) Allergy Severe ANAPHYLAXIS Verified 01/08/25 19:41 azithromycin Allergy Intermediate Rash Verified 01/08/25 19:41 barium sulfate Allergy Intermediate angioedema Verified 01/08/25 19:41 cetirizine Allergy Mild Rash Verified 01/08/25 19:41 famotidine Allergy Mild Rash Verified 01/08/25 19:41 linaclotide (Linzess) Allergy Mild Rash Verified 01/08/25 19:41 Review of Systems Review of Systems: Positive shortness of breath wheezing PMFSH Past Medical History Attestation statement: The following information was validated with the patient. Medical History Chronic lung disease Chronic lung disease BAHMAN (generalized anxiety disorder) COPD (chronic obstructive pulmonary disease) Cocaine use disorder Cocaine abuse GERD (gastroesophageal reflux disease) Constipation Non-insulin dependent type 2 diabetes mellitus HENRY (obstructive sleep apnea) Acute exacerbation of chronic obstructive airways disease Asthma with exacerbation Obesity hypoventilation syndrome Chronic lung disease Hypoxic respiratory failure Nocturnal hypoxemia Diabetes mellitus COPD exacerbation Crack cocaine use Hyperkalemia Metabolic acidosis Leukocytosis Chest discomfort Chronic renal failure, stage 2 (mild) SOB (shortness of breath) Asthma Smoker Rotator cuff tendonitis GERD (gastroesophageal reflux disease) Chronic idiopathic constipation Bustos's esophagus Depression High triglycerides Gastroparesis Carpal tunnel syndrome of right wrist Nausea & vomiting Hernia Acute and chronic respiratory failure, unspecified whether with hypoxia or hypercapnia HTN (hypertension) Obesity (BMI 30-39.9) Knee pain, bilateral Surgical History History of cholecystectomy (~1988) History of carpal tunnel release Hx of tubal ligation History of pubovaginal sling (~2015) History of umbilical hernia repair (~2001) Hx of section History of open reduction and internal fixation (ORIF) procedure History of esophagogastroduodenoscopy (EGD) Family History Family History Father Heart disease HENRY (obstructive sleep apnea) Family history of breast cancer Mother Asthma Emphysema, unspecified Bronchitis Smoker Alcoholism Bone marrow disease Maternal Grandmother Diabetes Social History Social History Household Members: Other Household Members Other:: sister Housing: House Housing Other:: 3 family house Are you a primary healthcare science specialist to a significant other at home: No Do you presently have visiting nurse or other home services: Yes Unable to assess alcohol history related to: Unknown Alcohol intake: never Comment: refusing socks Patient Tobacco Use Status: Current everyday Tobacco user Tobacco use type: Cigarette Cigarette Packs Per Day: 0.5 Cigarettes Per Day: 10.0 Years Smoked: 40 Smoked in Last 30 Days: Yes e-Cigarette/Vaping Use: Currently Using Second Hand Smoke Exposure: Yes Use of substances other than those prescribed or required for medical reasons: Yes Substance Use Type: Crack/Cocaine Advance Directives: Yes Advance Directives on File: Yes Advance Directives Date on File: 12/19/23 service: No Current occupational status: disabled 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 Physical Exam Vital Signs: Vital Signs: Last Vital Signs Temp 98.1 F 01/08/25 20:41 Pulse 100 01/08/25 20:41 Resp 14 01/08/25 20:41 BP 109/79 01/08/25 20:41 Pulse Ox 92 01/08/25 20:41 O2 Del Method Nasal Cannula 01/08/25 20:41 O2 Flow Rate 2 01/08/25 20:41 Oxygen Flow Rate 2 01/08/25 19:38 BMI result Body Mass Index 34.5 Appearance: Alert. Oriented X3. No acute distress. Eyes: Pupils equal, round and reactive to light. ENT: Pharynx normal. Neck: Normal inspection. Neck supple. No lymph nodes noted. No crepitus CVS: Normal heart rate and rhythm. Pulses normal. Normal S1 and S2 Respiratory: Diminished breath sounds bilaterally increased work of breathing Abdomen: Soft and nontender. No rigidity. No distention. good BS x4 Skin: Skin warm and dry. Normal skin color. Normal skin turgor. Extremities: No lower extremity edema. Neurovascular intact to all extremities. No Lacerations. No Rash Neuro: Oriented X 3. No motor deficit. No sensory deficit. Moving all extermities. No slurred speech Medications Administered Discontinued Medications Generic Name Dose Route Start Last Admin Trade Name Brian PRN Reason Stop Dose Admin Acetaminophen 975 mg 01/08/25 20:25 01/08/25 20:39 Acetaminophen 325 Mg Tablet PO 01/08/25 20:26 975 mg ONCE ONE Administration Albuterol Sulfate 7.5 mg/ 0 mg 01/08/25 19:42 01/08/25 19:45 Albuterol/Ipratropium 3 ml INHALE 01/08/25 19:43 10 each ONCE ONE Administration Magnesium Sulfate 2 gm in 50 mls @ 150 mls/hr 01/08/25 19:55 01/08/25 20:39 Magnesium Sulfate/H2o IV 01/08/25 20:14 Infused ONCE ONE Infusion Methylprednisolone Sodium Succinate 125 mg 01/08/25 20:53 01/08/25 21:01 Methylprednisolone Sod Succ 125 Mg/2 Ml Vial IVPUSH 01/08/25 20:54 125 mg ONCE ONE Administration Medical Decision Making Medical Decision Making MDM Narrative: History of polysubstance abuse history of COPD presented with increasing shortness of breath wheezing. We give steroids magnesium continuous neb with moderate relief of symptoms. My interpretation patient's EKG showed a sinus rhythm heart rate is 100 with sinus arrhythmia no acute ST segment elevation. My interpretation patient's chest x-ray is grossly negative radiology's interpretation x-ray showed question pneumonitis. Patient's troponin is 22.3. This is approximately baseline. White count is 14 but patient has been on chronic steroids. Patient is VBG by my interpretation showed no CO2 retention acutely. Patient's pH was 7.42 pCO2 is 48. Tox screen was positive for opiate and cocaine. COVID flu RSV were negative. Will admit patient for further evaluation. Hospitalist team consulted. Differential Diagnosis Differential Diagnoses: The differential diagnosis associated with the presentation includes Pneumonia, COPD, bronchial spasm, polysubstance abuse Admission/Observation Consideration of admission/observation: Escalation of care including admission/observation considered Consult Healthcare Provider Management of the patient was discussed with: Hospitalist Lab Data MDM Lab Attestation statement: I reviewed the patient's lab results. 01/08/25 20:04 01/08/25 20:04 Labs: Lab Results 01/08/25 01/08/25 01/08/25 Range/Units 20:04 20:08 21:19 WBC 14.4 H (4.8-10.8) X10*3/uL RBC 4.46 (4.20-5.50) X10*6/uL Hgb 9.2 L (12.0-16.0) g/dl Hct 32.2 L (37.0-47.0) % MCV 72.2 L (80.0-98.0) fL MCH 20.6 L (27.0-33.0) pg MCHC 28.6 L (31.0-35.0) g/dl RDW 17.7 H (11.0-16.0) % Plt Count 373 (160-400) X10*3/uL MPV 8.7 L (9.4-12.3) fL Immature Gran % (Auto) 0.6 H (0.0-0.4) % Neut % (Auto) 65.5 (45-73) % Lymph % (Auto) 24.7 (20-40) % [place] % (Auto) 8.3 (2-11) % Eos % (Auto) 0.7 (0-4) % Baso % (Auto) 0.2 (0-2) % Lymph # (Auto) 3.6 (1.2-4.9) X10*3/uL [place] # (Auto) 1.2 (0.1-1.2) X10*3/uL Eos # (Auto) 0.1 (0.0-0.4) X10*3/uL Baso # (Auto) 0.0 (0.0-0.2) X10*3/uL Abs Immat Gran (auto) 0.08 H (0.00-0.03) X10*3/uL Absolute Neuts (auto) 9.5 H (2.0-8.3) x10*3/uL Absolute Nucleated RBC 0.000 (0.0-0.012) X10*3/uL Nucleated RBC % (auto) 0.0 (0.0-0.2) /100WBC VBG pH 7.42 (7.32-7.43) VBG pCO2 48 mmHg VBG pO2 70 mmHg VBG HCO3 32 H (22-26) mmol/L VBG O2 Saturation 93.0 % VBG Base Excess 6.9 mmol/L Sodium 139 (135-145) mmol/L Potassium 3.7 (3.3-5.1) mmol/L Chloride 101 (96-108) mmol/L Carbon Dioxide 29 (22-29) mmol/L Anion Gap 13 (12-20) BUN 22 H (9-16) mg/dL Creatinine 0.77 (0.5-1.4) mg/dL Estim Creat Clear Calc 73.4 Estimated GFR > 60 Random Glucose 194 H (60-115) mg/dL Calcium 8.6 (8.4-10.2) mg/dL Troponin I High Sens 22.3 H (<3.5-17.0) ng/L B-Natriuretic Peptide 64 (<100) pg/mL Urine Opiates Screen POSITIVE H (Not Detect) Ur Buprenorphine Scrn Not Detected (Not Detect) ng/mL Ur Oxycodone Screen Not Detected (Not Detect) ng/mL Urine Methadone Screen Not Detected (Not Detect) ng/mL Urine Fentanyl Screen Not Detected (Not Detect) Ur Barbiturates Screen Not Detected (Not Detect) Ur Phencyclidine Scrn Not Detected (Not Detect) Ur Amphetamines Screen Not Detected (Not Detect) U Benzodiazepines Scrn Not Detected (Not Detect) Urine Cocaine Screen POSITIVE H (Not Detect) U Marijuana (THC) Screen Not Detected (Not Detect) Ethyl Alcohol < 10 mg/dL Influenza Type A (PCR) NEGATIVE (Negative) Influenza Type B (PCR) NEGATIVE (Negative) RSV RNA Qual (PCR) NEGATIVE (Negative) SARS-CoV-2 RNA (RT-PCR) NEGATIVE (Negative) Independent Interpretation I performed an independent interpretation of an: EKG (My interpretation patient's EKG as above) and Plain X-Ray (My interpretation mid chest x-ray grossly negative) Radiology Impression Discussion of test interpretation with radiology: I have reviewed the radiologist's reading. External Record Review External record reviewed: Inpatient record Social Determinants Patient?s care significantly limited by Social Determinants of Health including: Alcoholism and drug addiction in family and Problems related to primary support group Critical Care Time Critical Care Time Critical Care Time: Yes Total Critical Care Time: 40 Attestation: I have personally provided 40 minutes of critical care time exclusive of time spent on separately billable procedures. ?Time includes review of lab data, radiology results, discussion with consultants, and monitoring for potential decompensation. ?Interventions were performed as documented above Discharge Plan Discharge Clinical Impression: COPD (chronic obstructive pulmonary disease) Patient Disposition: Admitted As Inpatient Print Language: Urdu
[2025-01-08 23:36] VITALS: PULSE 97; RESP 18; O2SAT 93
--- NOTE | 2025-01-08 23:55 | PC.RT ---
pt refused to wear bipap
[2025-01-09] VITALS (11 sets, daily range): BP systolic 135–165; BP diastolic 63–81; PULSE 80–104; RESP 14–20; TEMP 36–36.9; O2SAT 92–98; BMI 38.7
[2025-01-09] MEDS: Nicotine 21 MG PATCH.TD24 TRANSDERMA ×2 (00:20→08:41)
[2025-01-09] MEDS: 0.9 % Sodium Chloride Flush 3 ML SYRINGE IVFLUSH ×5 (00:20→20:43)
[2025-01-09 00:45] LABS: Appearance Urine Clear; Glucose Urine UA Negative (Negative); PH 7.0 (5.0-9.0); Specific Gravity - Urine 1.010 (1.005-1.025); UMIC TRIGGER UA YES
[2025-01-09 05:40] LABS: Hematocrit 33.5 % (37.0-47.0); Hemoglobin 9.6 g/dl (12.0-16.0); Imm Gran Abs Auto 0.08 X10*3/uL (0.00-0.03); Imm Gran Pct Auto 0.6 % (0.0-0.4); Lymphocytes Absolute Auto 0.6 X10*3/uL (1.2-4.9); MANUAL DIFF FLAG SCAN; Mean Corpuscular HGB Conc 28.7 g/dl (31.0-35.0); Mean Corpuscular Hemoglobin 20.7 pg (27.0-33.0); Mean Corpuscular Volume 72.4 fL (80.0-98.0); NRBC Abs Auto 0.000 X10*3/uL (0.0-0.012); NRBC Pct Auto 0.0 /100WBC (0.0-0.2); Platelet Count 398 X10*3/uL (160-400); Red Blood Count 4.63 X10*6/uL (4.20-5.50); SCAN SMEAR FLAG 1; White Blood Count 13.3 X10*3/uL (4.8-10.8)
[2025-01-09 05:57] LABS: Alanine Aminotransferase 20 U/L (0-31); Albumin Level 4.0 g/dL (3.5-5.0); Alkaline Phosphatase 90 U/L (39-117); Anion Gap 14 (12-20); Aspartate Amino Transferase 14 U/L (5-31); Blood Urea Nitrogen 21 mg/dL (9-16); Calcium 8.8 mg/dL (8.4-10.2); Carbon Dioxide 27 mmol/L (22-29); Chloride 100 mmol/L (96-108); Creatinine Clr Calc Pharmacy 79.5; Estimated Glomerular Filt Rate > 60; Potassium 4.8 mmol/L (3.3-5.1); Sodium 136 mmol/L (135-145); Total Protein 6.5 g/dL (6.5-8.0)
[2025-01-09 07:09] LABS: Glucose, Whole Blood 331 mg/dL (60-115)
--- NOTE | 2025-01-09 07:31 | PC.NURSE ---
Care of Pt assumed at [facility] of shift. Pt is A&Ox3 Pt reports feeling well this AM and offers no complaints. Pt is currently awake and watching TV. ISS administered per protocol for POC 331. Breakfast tray provided. Pt awaiting inpatient room assignment.
[2025-01-09] MEDS: Insulin Glargine,Hum.rec.anlog 100 UNIT/ML 10 ML VIAL 16 UNIT SUBCUT (08:40)
--- NOTE | 2025-01-09 08:59 | PHA.MEDREC ---
Addendum entered by Tricia Lake RPh 01/09/25 09:36: REVIEWED BY [facility] Original Note: Pharmacy Consult ? Medication Reconciliation Pharmacy has completed the medication reconciliation. Spoke with patient to confirm. She reports her furosemide was increased to 2 tabs daily (40 mg). She takes 16 units for Lantus at bedtime. Patient is still taking prednisone 40 mg daily. She is no longer taking tramadol at home. There are no other changes since last admission. She last took her medications 2 days ago.
[2025-01-09 11:24] LABS: Glucose, Whole Blood 160 mg/dL (60-115)
--- NOTE | 2025-01-09 13:48 | HO.PM.IMPN ---
Subjective Subjective Date of Service: 01/09/25 Interval History: Seen and examined this morning Follow-up for COPD exacerbation says she smoked crack before coming to the ED, breathing improving Review of Systems Review of Systems: Yes all other systems are reviewed and are negative Constitutional Constitutional: Denies chills and Denies fever(s) Cardiovascular Cardiovascular: Denies chest pain, Denies palpitations and Reports dyspnea Respiratory Respiratory: Denies cough and Reports dyspnea Endocrine Endocrine: Denies palpitations Physical Exam Vital Signs: Vital Signs: Last Vital Signs Temp 98.1 F 01/09/25 12:00 Pulse 100 01/09/25 12:00 Resp 20 01/09/25 12:00 BP 139/77 01/09/25 12:00 Pulse Ox 95 01/09/25 12:00 O2 Del Method Nasal Cannula 01/09/25 12:00 O2 Flow Rate 2 01/09/25 12:00 Oxygen Flow Rate 2 01/08/25 19:38 BMI result Body Mass Index 34.5 Const: General: cooperative, comfortable, no acute distress, alert and awake Nutritional Appearance: obese Orientation/consciousness: patient oriented x3 Resp: Effort & Inspection: able to speak in complete sentences, no respiratory distress and no use of accessory muscles Auscultation: no wheezes Cardio: Rate: regular rate GI: Inspection: No distended Palpation (GI): Soft to palpation Neuro: General: patient oriented x3, moves all extremities and CN's II-XI intact bilaterally Extrem: General: No pedal edema Objective Data Active Medications Acetaminophen (Acetaminophen 325 Mg Tablet) 650 mg PO Q6H PRN PRN Reason: Pain, Mild 1-3,fever,headache Albuterol Sulfate (Albuterol Sulfate 90 Mcg 8 Gm Inhaler) 2 puff INHALE Q6H PRN PRN Reason: for wheezing Albuterol/Ipratropium (Albuterol/Iprat 2.5/0.5mg 3 Ml Ampul.Neb) 3 ml INHALE Q4H PRN PRN Reason: Shortness of Breath/Wheezing Aspirin (Aspirin Enteric Coated 81 Mg Tablet.Dr) 81 mg PO DAILY [place] Budesonide (Budesonide 0.5 Mg/2 Ml Ampul.Neb) 0.5 mg INHALE RBID [place] Last Admin: 01/09/25 07:44 Dose: 0.5 mg Documented By: REHANA Calcium Carbonate (Calcium Carbonate 750 Mg Tab.Chew) 750 mg PO Q4H PRN PRN Reason: Heartburn Dextrose (Dextrose 50 % 25 Gm/50 Ml Syringe) 25 gm IVPUSH Q15M PRN; Protocol PRN Reason: per Hypoglycemia Standing Ord. Furosemide (Furosemide 40 Mg Tablet) 40 mg PO DAILY [facility]; Protocol Glucose (Glucose Gel 15 Gm Gel..Gram.) 15 gm PO Q15M PRN; Protocol PRN Reason: per Hypoglycemia Standing Ord. Hydromorphone HCl (Hydromorphone Hcl 0.5 Mg/0.5 Ml Syringe) 0.5 mg IVPUSH Q3H PRN; Protocol PRN Reason: Pain, Severe (Pain Scale 7-10) Last Admin: 01/09/25 12:18 Dose: 0.5 mg Documented By: TRICE Insulin Glargine (Insulin Glargine,Hum.Rec.Anlog 100 Unit/Ml 10 Ml Vial) 16 unit SUBCUT DAILY [facility] Last Admin: 01/09/25 08:40 Dose: 16 unit Documented By: TRICE Insulin Human Lispro (Insulin Lispro 100 Unit/Ml 3 Ml Vial) 0 unit SUBCUT QIDACHS [facility]; Protocol Last Admin: 01/09/25 12:14 Dose: 2 unit Documented By: TRICE Magnesium Hydroxide (Milk Of Magnesia 30 Ml Oral.Susp) 30 ml PO DAILY PRN PRN Reason: Constipation Melatonin (Melatonin 3 Mg Tablet) 6 mg PO BEDTIME PRN PRN Reason: Insomnia Methylprednisolone Sodium Succinate (Methylprednisolone Sod Succ 40 Mg Vial) 40 mg IVPUSH Q12H [facility] Last Admin: 01/09/25 08:40 Dose: 40 mg Documented By: TRICE Nicotine (Nicotine 21 Mg Patch.Td24) 21 mg TRANSDERMA DAILY [facility] Last Admin: 01/09/25 08:41 Dose: 21 mg Documented By: TRICE Omeprazole (Omeprazole 20 Mg Capsule.Dr) 20 mg PO DAILY@0630 [facility] Last Admin: 01/09/25 05:38 Dose: 20 mg Documented By: VANESSA Ondansetron HCl (Ondansetron Hcl 4 Mg/2 Ml Vial) 4 mg IVPUSH Q8H PRN PRN Reason: Nausea and Vomiting Polyethylene Glycol (Polyethylene Glycol 3350 17 Gm Powd.Pack) 17 gm PO DAILY PRN PRN Reason: Constipation Senna (Sennosides 8.6 Mg Tablet) 17.2 mg PO BEDTIME [place] Sodium Chloride (0.9 % Sodium Chloride Flush 3 Ml Syringe) 3 ml IVFLUSH QSHIFT [place] Last Admin: 01/09/25 08:43 Dose: 3 ml Documented By: TRICE Labs 01/09/25 05:34 01/09/25 05:34 Labs: Laboratory Results - last 24 hr 01/08/25 01/08/25 01/08/25 20:04 20:08 21:19 MCV 72.2 L MCH 20.6 L MCHC 28.6 L RDW 17.7 H Plt Count 373 MPV 8.7 L Immature Gran % (Auto) 0.6 H Neut % (Auto) 65.5 Lymph % (Auto) 24.7 Mckean % (Auto) 8.3 Eos % (Auto) 0.7 Baso % (Auto) 0.2 Lymph # (Auto) 3.6 Mckean # (Auto) 1.2 Eos # (Auto) 0.1 Baso # (Auto) 0.0 Abs Immat Gran (auto) 0.08 H Absolute Neuts (auto) 9.5 H Absolute Nucleated RBC 0.000 Nucleated RBC % (auto) 0.0 Smear Tech's Comments VBG pH 7.42 VBG pCO2 48 VBG pO2 70 VBG HCO3 32 H VBG O2 Saturation 93.0 VBG Base Excess 6.9 Anion Gap 13 Estim Creat Clear Calc 73.4 Estimated GFR > 60 POC Glucose Random Glucose 194 H Calcium 8.6 Total Bilirubin AST ALT Alkaline Phosphatase B-Natriuretic Peptide 64 Total Protein Albumin Urine Color Yellow Urine Appearance Clear Urine pH 7.0 Ur Specific [place] 1.010 Urine Protein Negative Urine Glucose (UA) Negative Urine Ketones Negative Urine Blood Negative Urine Nitrite Negative Ur Leukocyte Esterase Small (1+) H Urine RBC 0-2 Urine WBC 0-5 Ur Squamous Epith Cells 6-10 Urine Bacteria 1+ Hyaline Casts 0-2 Urine Opiates Screen POSITIVE H Ur Buprenorphine Scrn Not Detected Ur Oxycodone Screen Not Detected Urine Methadone Screen Not Detected Urine Fentanyl Screen Not Detected Ur Barbiturates Screen Not Detected Ur Phencyclidine Scrn Not Detected Ur Amphetamines Screen Not Detected U Benzodiazepines Scrn Not Detected Urine Cocaine Screen POSITIVE H U Marijuana (THC) Screen Not Detected Ethyl Alcohol < 10 Influenza Type A (PCR) NEGATIVE Influenza Type B (PCR) NEGATIVE RSV RNA Qual (PCR) NEGATIVE SARS-CoV-2 RNA (RT-PCR) NEGATIVE 01/09/25 01/09/25 01/09/25 05:34 07:05 11:19 MCV 72.4 L MCH 20.7 L MCHC 28.7 L RDW 17.7 H Plt Count 398 MPV 8.9 L Immature Gran % (Auto) 0.6 H Neut % (Auto) 94.1 H Lymph % (Auto) 4.4 L Mckean % (Auto) 0.8 L Eos % (Auto) 0.0 Baso % (Auto) 0.1 Lymph # (Auto) 0.6 L Mckean # (Auto) 0.1 Eos # (Auto) 0.0 Baso # (Auto) 0.0 Abs Immat Gran (auto) 0.08 H Absolute Neuts (auto) 12.5 H Absolute Nucleated RBC 0.000 Nucleated RBC % (auto) 0.0 Smear Tech's Comments VERIFIED VBG pH VBG pCO2 VBG pO2 VBG HCO3 VBG O2 Saturation VBG Base Excess Anion Gap 14 Estim Creat Clear Calc 79.5 Estimated GFR > 60 POC Glucose 331 H 160 H Random Glucose 387 H* Calcium 8.8 Total Bilirubin 0.2 AST 14 ALT 20 Alkaline Phosphatase 90 B-Natriuretic Peptide Total Protein 6.5 Albumin 4.0 Urine Color Urine Appearance Urine pH Ur Specific [place] Urine Protein Urine Glucose (UA) Urine Ketones Urine Blood Urine Nitrite Ur Leukocyte Esterase Urine RBC Urine WBC Ur Squamous Epith Cells Urine Bacteria Hyaline Casts Urine Opiates Screen Ur Buprenorphine Scrn Ur Oxycodone Screen Urine Methadone Screen Urine Fentanyl Screen Ur Barbiturates Screen Ur Phencyclidine Scrn Ur Amphetamines Screen U Benzodiazepines Scrn Urine Cocaine Screen U Marijuana (THC) Screen Ethyl Alcohol Influenza Type A (PCR) Influenza Type B (PCR) RSV RNA Qual (PCR) SARS-CoV-2 RNA (RT-PCR) Assessment and Plan (1) Crack cocaine use: Status: Acute (2) COPD (chronic obstructive pulmonary disease): Status: Acute Plan This is a 54-year-old female with past medical history severe asthma/COPD on home O2 2-3 L, HENRY noncompliant with nocturnal BiPAP, substance abuse to include crack cocaine, tobacco dependence, systolic congestive heart failure/ HFrEF 40-45%, stress-induced cardiomyopathy, hypertension, obesity, insulin-dependent diabetes, GERD, umbilical hernia, hyperlipidemia presents to the emergency department with complaints of dyspnea after being seen by her nurse in the home setting. Patient's nurse advocated for patient to be seen today. Patient was recently discharged on 01/06/2025. Patient did admit to using crack cocaine on 01/06/2025 COPD exacerbation/pneumonitis exacerbated by crack cocaine use continue steroids, breathing treatments continue baseline Oxygen , BiPAP at HS Budesonide b.i.d. 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 Patient defers need for addictions consultation this admission. Patient does want to continue the topiramate as ordered. Abdominal pain with known ventral/inguinal hernia repair and small fat containing umbilical hernia Abdominal pain with coughing patient is pain-free at rest and appears comfortable. Ultrasound of the abdomen confirms presence of umbilical and ventral hernias Outpatient surgery consultation Leukocytosis Likely secondary to oral prednisone treatment HFrEF 40-45% Lasix 20 mg daily Losartan Daily weights Low-sodium diet Fluid allowance 1500 mls Hyperlipidemia Atorvastatin 40 mg HS LFTs are stable IDDM Sliding scale insulin Lantus daily Diabetic diet Mood continue baseline meds Constipation Bowel regimen GERD Omeprazole DVT prophylaxis: Lovenox Full Code status Quality Stroke Does the patient have a stroke diagnosis?: No Reason for No Anti-thrombotic by Day Two: N/A - Med Ordered VTE Prior VTE?: No VTE Risk Level:: Medical - moderate - high VTE Device Contraindication: N/A - Device Ordered VTE Drug Contraindication: N/A - Med Ordered
[2025-01-09] MEDS: Albuterol/Iprat 2.5/0.5MG 3 ML AMPUL.NEB INHALE ×2 (14:33→20:08)
[2025-01-09 15:13] LABS: Glucose, Whole Blood 285 mg/dL (60-115)
[2025-01-09] MEDS: Theophylline Anhydrous ER 400 MG TAB.ER.24H PO (20:39)
[2025-01-09 20:51] LABS: Glucose, Whole Blood 186 mg/dL (60-115)
[2025-01-10] VITALS: BP 134/93; PULSE 80; RESP 16; TEMP 36.1; O2SAT 96
[2025-01-10 03:51] VITALS: BP 149/68; PULSE 86; RESP 18; TEMP 36.2; O2SAT 92
[2025-01-10 07:08] LABS: Glucose, Whole Blood 170 mg/dL (60-115)
[2025-01-10 07:32] VITALS: BP 145/93; PULSE 79; RESP 18; TEMP 36.5; O2SAT 94
[2025-01-10] MEDS: guaiFEN/Codeine SF 200/20/10ML 10 ML LIQUID 5 ML PO ×2 (07:56→13:43)
[2025-01-10] MEDS: Nicotine 21 MG PATCH.TD24 TRANSDERMA (08:00)
[2025-01-10] MEDS: Insulin Glargine,Hum.rec.anlog 100 UNIT/ML 10 ML VIAL 16 UNIT SUBCUT (08:00)
[2025-01-10] MEDS: Aspirin Enteric Coated 81 MG TABLET.DR PO (08:01)
[2025-01-10] MEDS: Theophylline Anhydrous ER 400 MG TAB.ER.24H PO (08:01)
[2025-01-10] MEDS: 0.9 % Sodium Chloride Flush 3 ML SYRINGE IVFLUSH (08:01)
[2025-01-10] MEDS: Albuterol/Iprat 2.5/0.5MG 3 ML AMPUL.NEB INHALE ×2 (08:03→11:51)
[2025-01-10 08:06] VITALS: PULSE 95; RESP 18; O2SAT 96
[2025-01-10 11:06] LABS: Glucose, Whole Blood 205 mg/dL (60-115)
[2025-01-10 11:50] VITALS: BP 113/65; PULSE 98; RESP 15; TEMP 36.5; O2SAT 97
[2025-01-10 11:52] VITALS: PULSE 86; RESP 18; O2SAT 97
--- NOTE | 2025-01-10 12:48 | PM.DS ---
DS: Providers Provider Date of Service: 01/10/25 Date of admission: 01/08/25 21:03 Date of discharge: 01/10/25 Primary care physician: Joe Hale [facility] Attending physician on discharge: [facility] Discharging clinician: Vandana Cline DS: Diagnosis Discharge Diagnosis (1) Crack cocaine use: Status: Acute (2) COPD (chronic obstructive pulmonary disease): Status: Acute DS: Summary Hospital Course Hospital Course: From H&P on the day of admission Patient is a 54-year-old female with past medical history severe asthma/COPD on home O2 2-3 L, HENRY noncompliant with nocturnal BiPAP, substance abuse to include crack cocaine, tobacco dependence, systolic congestive heart failure/ HFrEF 40-45%, stress-induced cardiomyopathy, hypertension, obesity, insulin-dependent diabetes, GERD, umbilical hernia, hyperlipidemia presents to the emergency department with complaints of worsening dyspnea. Patient states that she can not tolerate the BiPAP as she feels she can not catch her breath. Patient was discharged from [facility] on January 06 and used crack cocaine the same day. Patient stated she did not have a taste for it and did not use anymore after that 1st day. In addition patient has been smoking less cigarettes because she does not have a taste for that as well. Patient has been on topiramate and appears to be helping with her crack cocaine use. Patient does report having air conditioning in her apartment. Patient has not done any traveling or been exposed to anybody with respiratory illness since discharge. Patient now has a nurse coming in daily and the nurse assess the patient earlier today and felt the patient need to be seen in the emergency department for further evaluation. Chest x-ray indicates possible pneumonitis versus pulmonary edema. BNP is normal. Patient has been on oral prednisone which could explain her leukocytosis. UA is currently pending. Patient denies any current chest pain, fever, chills, nausea and diarrhea. All viral studies are negative to include influenza A and B, COVID and RSV. Patient is reporting abdominal pain which is worsening and feels it is related to her umbilical hernia. The area especially hurts when she coughs. Patient does not want to be seen by addictions this admission as she feels the topiramate is helping. Patient has a plan for discharge where she will be staying with her daughter for 3 weeks and may stay there permanently to help get away from her sister who also uses crack cocaine. In addition patient will continue with daily nursing services at her new location most likely. Patient does have some insight regarding the connection between crack cocaine use in her respiratory disease. Patient does not want to keep returning to the hospital. Patient remains hopeful that things will turn around and get better. Patient is not feeling suicidal today. Patient does live with chronic anxiety but states her anxiety is currently controlled. Patient often feels the most anxious when she is on her BiPAP machine. Patient does have an upcoming appointment with her stereo equipment installer as an outpatient on January 14 which her daughter will be taking her to. She plans to have a [id number] discussion with her stereo equipment installer regarding treatment options and prognosis. Acute COPD exacerbation in the setting of crack cocaine use Treated with systemic steroids, breathing treatments, improved quickly and although she states that we discharged her ?too soon? on last admission she is requesting to be discharged home. Her plan is to go and live with her daughter for the next several weeks in an effort to abstain from cocaine use. The risks of leaving were discussed including worsening respiratory status and readmission but she feels that she is back to her baseline in his eager to return home. She will be discharged with a short course of antibiotics. She is encouraged to be compliant with her BiPAP. She has an outpatient pulmonology appointment on the which her daughter we will reportedly be taking her to. Abdominal pain due to ventral/umbilical hernias Likely due to coughing. CT scan was obtained showing operative changes of ventral hernia repair with multiple residual/recurrent fat containing hernias. No bowel contained within these hernias, no evidence of bowel obstruction. Recommend outpatient follow-up with General surgery to discuss elective repair. Time Attestation Discharge Coordination Time (in mins): 32 Quality: Safe Use of Opioids Does Pt have an Active Cancer Diagnosis on the Problem List?: No Quality: Stroke Does the patient have a stroke diagnosis?: No Physical Exam Vital Signs: Vital Signs: Last Vital Signs Temp 97.7 F 01/10/25 11:50 Pulse 86 01/10/25 11:52 Resp 18 01/10/25 11:52 BP 113/65 01/10/25 11:50 Pulse Ox 97 01/10/25 11:50 O2 Del Method Nasal Cannula 01/10/25 11:50 O2 Flow Rate 2 01/10/25 11:50 Oxygen Flow Rate 2 01/08/25 19:38 BMI result Body Mass Index 38.7 Const: General: cooperative, comfortable, no acute distress, alert and awake Nutritional Appearance: obese Orientation/consciousness: patient oriented x3 Resp: Effort & Inspection: normal respiratory effort, able to speak in complete sentences, no respiratory distress and no use of accessory muscles Auscultation: clear to auscultation bilaterally Neuro: General: patient oriented x3 DS: Data Data Completed and Pending Completed studies during hospitalization [Text1]: Procedures Assistance with Respiratory Ventilation, 24-96 Consecutive Hours, Continuous Positive Airway Pressure (10/30/24) Assistance with Respiratory Ventilation, Less than 24 Consecutive Hours, Continuous Positive Airway Pressure (12/18/24) Insertion of Endotracheal Airway into Trachea, Via Natural or Artificial Opening (10/30/24) Insertion of Infusion Device into Superior Vena Cava, Percutaneous Approach (11/03/20) Introduction of Vasopressor into Peripheral Vein, Percutaneous Approach (10/30/24) Respiratory Ventilation, Less than 24 Consecutive Hours (10/30/24) Labs on day of discharge: Laboratory Results - last 24 hr 01/09/25 01/09/25 01/10/25 15:03 20:42 07:04 POC Glucose 285 H 186 H 170 H 01/10/25 11:02 POC Glucose 205 H Discharge Plan Discharge Anticipated Discharge Date/Time: 01/10/25 12:53 Patient Disposition: Home, Self-Care Discharge Diagnosis: COPD exacerbation Referrals: Joe Hale FNP- [Primary Care Provider, Internal Medicine] - 1 Week Matt Murphy MD [Physician, General Surgery] - 2 Weeks Referral Note: multiple abdominal hernias Discharge Medications: New prednisone 20 mg tablet 20 mg PO DAILY Qty: 5 0RF Continued (DME) cane Device See Rx Instructions .Route Qty: 1 0RF Rx Instructions: Standard cane (DME) Rollator walker See Rx Instructions .Route .MEDSUPPLY Qty: 1 0RF Rx Instructions: As directed (DME) pulse oximeter See Rx Instructions .Route .MEDSUPPLY Qty: 1 0RF Rx Instructions: As directed (DME) FreeStyle Jemima 3 Maddock Misc See Rx Instructions .Route Qty: 1 0RF Rx Instructions: To monitor blood sugar 4 times per day albuterol sulfate 2.5 mg /3 mL (0.083 %) solution for nebulization 2.5 mg inhalation Q4H PRN (Reason: Shortness Of Breath/Wheezing) Qty: 180 6RF theophylline 400 mg tablet extended release 24 hr 400 mg PO BID 90 Days Qty: 180 4RF albuterol sulfate [Ventolin HFA] 90 mcg/actuation HFA aerosol inhaler 2 puff inhalation Q6H PRN (Reason: for wheezing) Qty: 1 6RF acetaminophen 650 mg tablet extended release 650 mg PO Q12H PRN (Reason: pain) 30 Days Qty: 60 0RF aspirin 81 mg tablet,delayed release (DR/EC) 81 mg PO DAILY 90 Days Qty: 90 1RF atorvastatin 40 mg tablet 40 mg PO BEDTIME Qty: 90 0RF (DME) FreeStyle Lite Strips Strip See Rx Instructions .ROUTE .MEDSUPPLY Qty: 100 1RF Rx Instructions: Use to check blood sugar daily or if symptomatic hypo/hypergylcemia calcium carbonate-vitamin D3 500 mg-10 mcg (400 unit) tablet 1 tab PO DAILY Qty: 90 0RF (DME) 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 meter [FreeStyle Lite Meter] Kit See Rx Instructions .ROUTE .MEDSUPPLY Qty: 1 0RF Rx Instructions: Use to check blood sugar daily or if symptomatic for hypo/hyperglycemia esomeprazole magnesium 40 mg capsule,delayed release(DR/EC) 40 mg PO DAILY@0630 Qty: 90 1RF fexofenadine [Elisabeth Allergy] 180 mg tablet 180 mg PO DAILY Qty: 30 3RF glucose 4 gram tablet,chewable 16 g PO Q15M MDD 8 tabs PRN (Reason: hypoglycemia) Qty: 100 1RF Rx Instructions: until symptoms of low blood sugar are controlled ibuprofen 800 mg tablet 800 mg PO BID PRN (Reason: Headache) 30 Days Qty: 60 0RF Rx Instructions: please use sparingly due to diabetes (DME) lancets [FreeStyle Lancets] 28 gauge misc See Rx Instructions .ROUTE .MEDSUPPLY Qty: 100 1RF Rx Instructions: Use to check blood sugar daily or if symptomatic hypo/hypergylcemia losartan 50 mg tablet 50 mg PO DAILY Qty: 90 0RF (DME) FreeStyle Jemima 3 Plus Sensor Device See Rx Instructions .Route Qty: 2 5RF Rx Instructions: To monitor blood sugars 4 times per day. Change sensor every 15 days (DME) pen needle, diabetic 31 gauge x 5/16 needle See Rx Instructions .Route Qty: 100 0RF Rx Instructions: Use to inject insulin once a day tizanidine 4 mg tablet 4 mg PO Q12H 30 Days Qty: 60 0RF Rx Instructions: do not take concurrently with famotidine gabapentin 800 mg tablet 800 mg PO QID 30 Days Qty: 120 1RF sertraline 100 mg tablet 150 mg PO DAILY Qty: 135 0RF (DME) walker Misc See Rx Instructions .Route Qty: 1 0RF Rx Instructions: As directed sertraline 25 mg tablet 25 mg PO DAILY Rx Instructions: Taken with 100mg tab for TDD of 125mg. dextrose [Glucose Gel] 40 % gel 10 g PO Q15M PRN (Reason: hypoglycemia) Qty: 300 0RF Rx Instructions: until symptoms of low blood sugar are controlled glucagon HCl [Glucagon (HCl) Emergency Kit] 1 mg recon soln 1 mg subcut Q20M PRN (Reason: hypoglycemia) Qty: 1 0RF Rx Instructions: until target blood sugar attained Stiolto Respimat 2.5-2.5 mcg/actuation mist 2 puff inhalation DAILY naloxone [Narcan] 4 mg/actuation spray,non-aerosol 4 mg intranasal Q2M PRN (Reason: opioid overdose) Qty: 2 0RF Rx Instructions: spray 1 dose into ONE nostril; alternate nostrils w each dose until help arrives insulin glargine [Lantus Solostar U-100 Insulin] 100 unit/mL (3 mL) insulin pen 16 unit subcut BEDTIME quetiapine 50 mg tablet 50 mg PO BID topiramate 25 mg tablet 50 mg PO BID Rx Instructions: take one tab twice daily for one week, then increase to 2 tabs twice daily codeine-guaifenesin 10-100 mg/5 mL Liquid 5 ml PO Q6H PRN (Reason: Cough) Qty: 118 0RF prednisone 10 mg tablet 40 mg PO DIRECTED Qty: 120 0RF Rx Instructions: see taper instructions nicotine 21 mg/24 hr patch 24 hour 1 patch transdermal Q24H Qty: 28 0RF ipratropium-albuterol 0.5 mg-3 mg(2.5 mg base)/3 mL solution for nebulization 3 ml INHALATION QID PRN (Reason: Shortness Of Breath Or Wheezing) furosemide 20 mg tablet 40 mg PO DAILY Discharge Orders: Discharge Order (Routine); Ordered 01/10/25 Ordered By: Vandana Cline Activity on Discharge: As tolerated Stand Alone Forms: Patient Portal Discharge page Print Language: Irish Care Plan Goals: See below Health Concerns: Acute COPD exacerbation Plan of Treatment: Complete course of steroids Avoid cocaine use Use BiPAP machine Follow-up with pulmonology as scheduled Call to schedule follow-up appointment with General surgery to discuss elective repair of hernias Assessment: See discharge summary
--- NOTE | 2025-01-10 13:01 | MHC.CM.PN ---
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 SHE HAS A CPAP AND O2 FROM [facility] AND USES A CANE/WALKER NEEDED PCP: DALJIT HAINES HCP ON FILE PT WILL DC HOME TODAY SHE INITIALLY REQUESTED BLS TRANSPORT, BUT DID NOT WANT TO WAIT FOR 1600 HOURS, THE EARLIEST AVAILABLE SHE THEN REQUESTED TO TAKE THE PVTA, HOWEVER WAS REMINDED IT IS SATURDAY AND DOES NOT COME TO [facility] SHE SAYS SHE WOULD LIKE TO TAKE A LYFT, SHE STATES SHE DOES NOT NEED HER O2 FOR THE RIDE AND HAS A LINE AT THE ENTRY [address] FOR WHEN SHE GETS OUT OF THE CAR CM INFORMED HER SHE MAY BE ABLE TO TAKE A LOANER O2 TANK, HOWEVER SHE STATES SHE DOES NOT NEED IT PT WILL DC HOME WITH RESUMPTION OF BOILER TESTING TECHNICIAN SERVICES VIA LYFT TRANSPORT
[2025-01-10] MEDS: oxyCODONE HCl Immed Release 5 MG TABLET PO (13:59)
== END 2025-01-10 14:50 | disposition home or self-care (01) | DRG 816 ==
LOC: HO.ED 20:06 → HO.EDOVER 22:12 → HO.S3 01-09 13:41
PROVIDERS: Nurse Practitioner Family; Admitting Provider Student in an Organized Health Care Education/Training Program; Emergency Provider Emergency Medicine Emergency Medical Services; PCP Nurse Practitioner Family; Visit Provider Physician Assistant Medical
DX: T40.5X1A Poisoning by cocaine, accidental (unintentional), initial encounter (principal); J44.1 Chronic obstructive pulmonary disease with (acute) exacerbation; Z99.81 Dependence on supplemental oxygen; I50.22 Chronic systolic (congestive) heart failure; E78.5 Hyperlipidemia, unspecified; F14.10 Cocaine abuse, uncomplicated; F41.9 Anxiety disorder, unspecified; G47.33 Obstructive sleep apnea (adult) (pediatric); K42.0 Umbilical hernia with obstruction, without gangrene; K43.6 Other and unspecified ventral hernia with obstruction, without gangrene; K59.00 Constipation, unspecified; K21.9 Gastro-esophageal reflux disease without esophagitis; Z20.822 Contact with and (suspected) exposure to COVID-19; Z91.199 Patient's noncompliance with other medical treatment and regimen due to unspecified reason; Z79.4 Long term (current) use of insulin; Z79.82 Long term (current) use of aspirin; Z79.899 Other long term (current) drug therapy
CPT/HCPCS: 36415; 71045; 74176; 76705; 80048; 80053; 80307; 81001; 82803; 82947; 83880; 84484; 85025; 87637; 93005; 94640; 99285; J1171; J2919; J3475

== ENCOUNTER → 2025-01-08 19:44 | Outpatient (BNV) | payer OTHER, SELFPAY | PROVIDERS: Admitting Provider Student in an Organized Health Care Education/Training Program; Emergency Provider Emergency Medicine Emergency Medical Services; PCP Nurse Practitioner Family; Visit Provider Internal Medicine Cardiovascular Disease | DX: I49.1 Atrial premature depolarization (principal); R00.0 Tachycardia, unspecified; I51.7 Cardiomegaly | CPT/HCPCS: 93010 ==

== ENCOUNTER → 2025-01-08 19:44 | Outpatient (BNV) | payer OTHER, SELFPAY | PROVIDERS: Emergency Provider Emergency Medicine Emergency Medical Services; Visit Provider Radiology Neuroradiology | DX: R06.02 Shortness of breath (principal) | CPT/HCPCS: 71045 ==

== ENCOUNTER 2025-01-08 21:03 | Outpatient (BNV) | payer OTHER, SELFPAY | END 2025-01-09 07:00 | PROVIDERS: Admitting Provider Student in an Organized Health Care Education/Training Program; Emergency Provider Emergency Medicine Emergency Medical Services; PCP Nurse Practitioner Family; Visit Provider Radiology Diagnostic Radiology | DX: R06.02 Shortness of breath (principal) | CPT/HCPCS: 76705 ==

== ENCOUNTER 2025-01-08 21:03 | Outpatient (BNV) | payer OTHER, SELFPAY | END 2025-01-10 09:02 | PROVIDERS: Admitting Provider Student in an Organized Health Care Education/Training Program; Emergency Provider Emergency Medicine Emergency Medical Services; PCP Nurse Practitioner Family; Visit Provider Radiology Diagnostic Radiology | DX: K43.9 Ventral hernia without obstruction or gangrene (principal) | CPT/HCPCS: 74176 ==

== ENCOUNTER → 2025-01-08 21:03 | Outpatient (BNV) | payer OTHER, SELFPAY | PROVIDERS: Admitting Provider Student in an Organized Health Care Education/Training Program; Emergency Provider Emergency Medicine Emergency Medical Services; Visit Provider Nurse Practitioner Family | DX: J44.1 Chronic obstructive pulmonary disease with (acute) exacerbation (principal) | CPT/HCPCS: 99223; 99232 ==

== ENCOUNTER → 2025-01-12 04:33 | Outpatient (BNV) | payer OTHER, SELFPAY | PROVIDERS: Emergency Provider Emergency Medicine; Visit Provider Radiology Vascular & Interventional Radiology | DX: R06.02 Shortness of breath (principal) | CPT/HCPCS: 71045 ==

== ENCOUNTER 2025-01-12 04:55 | Inpatient (IN) | payer OTHER, SELFPAY ==
[2025-01-12] VITALS (15 sets, daily range): BP systolic 105–167; BP diastolic 60–85; PULSE 84–96; RESP 13–24; TEMP 36–36.7; O2SAT 91–98; BMI 33.9
--- NOTE | ~2025-01-12 | XR_ITS ---
CLINICAL HISTORY: SOB 1 view chest x-ray. Comparison: CR - XR CHEST 1V - 01/08/25 19:46 EDT Findings: The lungs are adequately expanded. No focal consolidation. No effusion or pneumothorax. Cardiac and mediastinal contours are stable. No acute osseous abnormality Impression: No acute process. This document has been electronically signed by: Codey Menard MD on 01/12/2025 06:21:58
--- NOTE | 2025-01-12 05:04 | ECG_ITS ---
Test Reason : SOB Blood Pressure : */* mmHG Vent. Rate : 113 BPM Atrial Rate : 113 BPM P-R Int : 128 ms QRS Dur : 94 ms QT Int : 352 ms P-R-T Axes : 34 145 64 degrees QTcB Int : 482 ms Sinus tachycardia with occasional Premature atrial complexes Right axis deviation Right ventricular hypertrophy Abnormal ECG When compared with ECG of 08-Jan-2025 19:50, No significant change was found Referred By: Generic ED Physician Electronically Signed By: DAVIS WALKER
[2025-01-12] MEDS: Albuterol Sulfate 5 MG, Albuterol/Iprat 2.5/0.5MG 3 ML 3 ML INHALE (05:15)
[2025-01-12 05:42] LABS: Hematocrit 32.8 % (37.0-47.0); Hemoglobin 9.3 g/dl (12.0-16.0); Imm Gran Abs Auto 0.07 X10*3/uL (0.00-0.03); Imm Gran Pct Auto 0.4 % (0.0-0.4); Lymphocytes Absolute Auto 4.6 X10*3/uL (1.2-4.9); MANUAL DIFF FLAG NO; Mean Corpuscular HGB Conc 28.4 g/dl (31.0-35.0); Mean Corpuscular Hemoglobin 20.7 pg (27.0-33.0); Mean Corpuscular Volume 72.9 fL (80.0-98.0); NRBC Abs Auto 0.000 X10*3/uL (0.0-0.012); NRBC Pct Auto 0.0 /100WBC (0.0-0.2); Platelet Count 359 X10*3/uL (160-400); Red Blood Count 4.50 X10*6/uL (4.20-5.50); White Blood Count 16.0 X10*3/uL (4.8-10.8)
[2025-01-12 05:44] LABS: Venous Blood Gas Refer to POC result
[2025-01-12 05:45] LABS: VBG HCO3 33 mmol/L (22-26); VBG O2 % Saturation 99.0 %
[2025-01-12 06:02] LABS: Alanine Aminotransferase 20 U/L (0-31); Albumin Level 3.6 g/dL (3.5-5.0); Alkaline Phosphatase 83 U/L (39-117); Anion Gap 14 (12-20); Aspartate Amino Transferase 30 U/L (5-31); Blood Urea Nitrogen 23 mg/dL (9-16); Calcium 8.6 mg/dL (8.4-10.2); Carbon Dioxide 27 mmol/L (22-29); Chloride 107 mmol/L (96-108); Creatinine Clr Calc Pharmacy 77.6; Estimated Glomerular Filt Rate > 60; Magnesium 1.8 mg/dL (1.6-2.6); Potassium 4.4 mmol/L (3.3-5.1); Sodium 144 mmol/L (135-145); Total Protein 6.3 g/dL (6.5-8.0)
[2025-01-12 06:04] LABS: Troponin-I High Sensitivity 23.3 ng/L (<3.5-17.0)
[2025-01-12] MEDS: Magnesium Sulfate/H2O 2 GM/50 ML PIGGYBACK IV (06:39)
[2025-01-12] MEDS: Lactated Ringers 1,000 ML 999 ML IV (06:40)
--- NOTE | 2025-01-12 07:41 | PC.NURSE ---
Patient is a 54-year-old female with past medical history severe asthma/COPD on home O2 2-3 L, HENRY noncompliant with nocturnal BiPAP, substance abuse to include crack cocaine, tobacco dependence, systolic congestive heart failure/ HFrEF 40-45%, stress-induced cardiomyopathy, hypertension, obesity, insulin-dependent diabetes, GERD, umbilical hernia, hyperlipidemia presents to the emergency department with complaints of worsening dyspnea. Patient states that she can not tolerate the BiPAP as she feels she can not catch her breath. Patient was discharged from [facility] on January 12. Patient has been on topiramate and appears to be helping with her crack cocaine use. Patient alert and oriented. monitor technician maintained and tachycardia noted. Lungs diminished with coarse wheezes. Respirations labored with dyspnea on exertion and orthopnea. Abdomen large, soft, non-tender with positive bowel sounds. Positive pedal pulses with no edema noted.
[2025-01-12] MEDS: Albuterol Sulfate 2.5 MG, Albuterol/Iprat 2.5/0.5MG 3 ML 3 ML INHALE ×2 (08:15→11:45)
--- NOTE | 2025-01-12 08:30 | PC.NURSE ---
Patient placed on bipap by resp therapy settings as follows Fio2 285 16/8 rate 14.
--- NOTE | 2025-01-12 08:39 | ED.SOB ---
HPI - SOB/Dyspnea General Chief Complaint: Dyspnea Stated Complaint: COPD EXACERBATION Time Seen by Provider: 01/12/25 06:07 Source: patient, EMS, RN notes reviewed and old records reviewed Mode of arrival: EMS Limitations: no limitations History of Present Illness ED Provider: Dr. Luma Philippe HPI Narrative: 54-year-old female with history of COPD on 2 L at baseline presenting with shortness of breath that woke her from sleep tonight. She normally wears BiPAP for sleep but was not wearing it tonight. Describes cough productive of benson sputum. No reported fever. Admits to some crampy abdominal pain and associated nausea but no vomiting. No bowel changes or urinary complaints. Was recently admitted about 4 days ago. Continues to use tobacco. Related Data Home Medications ?Medication ?Instructions ?Recorded ?Confirmed tiotropium 2.5 mcg-olodaterol 2.5 2 puff inhalation DAILY 11/26/24 01/12/25 mcg/actuation mist for inhalation (Stiolto Respimat) insulin glargine 100 unit/mL (3 16 unit subcut BEDTIME 12/01/24 01/12/25 mL) subcutaneous pen (Lantus Solostar U-100 Insulin) quetiapine 50 mg tablet 50 mg PO BID 12/18/24 01/12/25 topiramate 25 mg tablet 50 mg PO BID 12/18/24 01/12/25 furosemide 20 mg tablet 40 mg PO DAILY 01/09/25 01/12/25 ipratropium 0.5 mg-albuterol 3 mg 3 ml inhalation QID PRN Shortness 01/09/25 01/12/25 (2.5 mg base)/3 mL nebulization Of Breath Or Wheezing soln sertraline 100 mg tablet 100 mg PO BID 01/12/25 01/12/25 Previous Rx's ?Medication ?Instructions ?Recorded walker #1 ea 07/14/24 Rollator walker #1 ea 09/16/24 cane #1 ea 09/16/24 pulse oximeter #1 ea 09/16/24 FreeStyle Jemima 3 [place] #1 ea 09/22/24 (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,family resource management specialist,cont) albuterol sulfate 2.5 mg/3 mL 2.5 mg (3 mL) inhalation Q4H PRN 11/09/24 (0.083 %) solution for nebulization Shortness Of Breath/Wheezing #180 mL albuterol sulfate 90 mcg/actuation 2 puff inhalation Q6H PRN for 11/09/24 aerosol inhaler (Ventolin HFA) wheezing #1 ea theophylline 400 mg 400 mg PO BID 90 days #180 tabs 11/09/24 tablet,extended release 24 hr acetaminophen 650 mg 650 mg PO Q12H PRN pain 30 days 11/12/24 tablet,extended release #60 tabs aspirin 81 mg tablet,delayed 81 mg PO DAILY 90 days #90 tabs 11/12/24 release atorvastatin 40 mg tablet 40 mg PO BEDTIME #90 tabs 11/12/24 blood sugar diagnostic (FreeStyle #100 ea 11/12/24 Lite Strips) 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 meter (FreeStyle #1 ea 11/12/24 Lite Meter kit) calcium 500 mg (as 1 tab PO DAILY #90 tabs 11/12/24 carbonate)-vitamin D3 10 mcg (400 unit) tablet esomeprazole magnesium 40 mg 40 mg PO DAILY@0630 #90 caps 11/12/24 capsule,delayed release fexofenadine 180 mg tablet 180 mg PO DAILY #30 tabs 11/12/24 (Elisabeth Allergy) glucose 4 gram chewable tablet 16 g (4 x 4 gram) PO Q15M PRN 11/12/24 hypoglycemia #100 tabs ibuprofen 800 mg tablet 800 mg PO BID PRN Headache 30 days 11/12/24 #60 tabs lancets 28 gauge (FreeStyle #100 ea 11/12/24 Lancets) losartan 50 mg tablet 50 mg PO DAILY #90 tabs 11/12/24 dextrose 40 % oral gel (Glucose 10 g PO Q15M PRN hypoglycemia #300 11/13/24 Gel) grams glucagon HCl 1 mg solution for 1 mg subcut Q20M PRN hypoglycemia 11/13/24 injection (Glucagon (HCl) #1 ea Emergency Kit) FreeStyle Jemima 3 Plus Sensor #2 ea 11/17/24 (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 sensor) naloxone 4 mg/actuation nasal 4 mg intranasal Q2M PRN opioid 11/27/24 spray (Narcan) overdose #2 ea pen needle, diabetic 31 gauge x #100 ea 11/30/24 5/16 tizanidine 4 mg tablet 4 mg PO Q12H muscle spasm 30 days 12/05/24 #60 tabs gabapentin 800 mg tablet 800 mg PO QID Pain 30 days #120 12/22/24 tabs Allergies Allergy/AdvReac Type Severity Reaction Status Date / Time doxycycline Allergy Severe Swelling Verified 01/12/25 05:10 varenicline (From CHANTIX) Allergy Severe ANAPHYLAXIS Verified 01/12/25 05:10 azithromycin Allergy Intermediate Rash Verified 01/12/25 05:10 barium sulfate Allergy Intermediate angioedema Verified 01/12/25 05:10 cetirizine Allergy Mild Rash Verified 01/12/25 05:10 famotidine Allergy Mild Rash Verified 01/12/25 05:10 linaclotide (Linzess) Allergy Mild Rash Verified 01/12/25 05:10 Review of Systems Review of Systems: Yes all other systems are reviewed and are negative [facility] Past Medical History [facility] Narrative: Oxygen-dependent COPD, CHF, HENRY Source: old records reviewed Medical History Chronic lung disease Chronic lung disease BAHMAN (generalized anxiety disorder) COPD (chronic obstructive pulmonary disease) Cocaine use disorder Cocaine abuse GERD (gastroesophageal reflux disease) Constipation Non-insulin dependent type 2 diabetes mellitus HENRY (obstructive sleep apnea) Acute exacerbation of chronic obstructive airways disease Asthma with exacerbation Obesity hypoventilation syndrome Chronic lung disease Hypoxic respiratory failure Nocturnal hypoxemia Diabetes mellitus COPD exacerbation Crack cocaine use Hyperkalemia Metabolic acidosis Leukocytosis Chest discomfort Chronic renal failure, stage 2 (mild) SOB (shortness of breath) Asthma Smoker Rotator cuff tendonitis GERD (gastroesophageal reflux disease) Chronic idiopathic constipation Bustos's esophagus Depression High triglycerides Gastroparesis Carpal tunnel syndrome of right wrist Nausea & vomiting Hernia Acute and chronic respiratory failure, unspecified whether with hypoxia or hypercapnia HTN (hypertension) Obesity (BMI 30-39.9) Knee pain, bilateral Surgical History History of cholecystectomy (~1988) History of carpal tunnel release Hx of tubal ligation History of pubovaginal sling (~2015) History of umbilical hernia repair (~2001) Hx of section History of open reduction and internal fixation (ORIF) procedure History of esophagogastroduodenoscopy (EGD) Family History Family History Father Heart disease HENRY (obstructive sleep apnea) Family history of breast cancer Mother Asthma Emphysema, unspecified Bronchitis Smoker Alcoholism Bone marrow disease Maternal Grandmother Diabetes Social History Social History Household Members: Family Household Members Other:: sister Housing: House Housing Other:: 3 family house Are you a primary neonatal intensive care nurse to a significant other at home: No Do you presently have visiting nurse or other home services: Yes Unable to assess alcohol history related to: Unknown Alcohol intake: never Comment: refusing socks Patient Tobacco Use Status: Current everyday Tobacco user Tobacco use type: Cigarette Cigarette Packs Per Day: 0.5 Cigarettes Per Day: 10.0 Years Smoked: 40 Smoked in Last 30 Days: Yes e-Cigarette/Vaping Use: Currently Using Second Hand Smoke Exposure: Yes Use of substances other than those prescribed or required for medical reasons: Yes Substance Use Type: Crack/Cocaine Substance Use Frequency: Chronic Longstanding Last Used Substance: Unknown Advance Directives: Yes Advance Directives on File: Yes Advance Directives Date on File: 12/19/23 Do you have a plan to hurt others: No Plan Nutrition Risks: No Nutritional Risk service: No Current occupational status: disabled 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 Physical Exam Vital Signs: Vital Signs: Last Vital Signs Temp 96.8 F 01/12/25 16:00 Pulse 85 01/12/25 16:00 Resp 22 H 01/12/25 16:00 BP 116/75 01/12/25 16:00 Pulse Ox 95 01/12/25 16:00 O2 Del Method Nasal Cannula 01/12/25 16:00 O2 Flow Rate 2 01/12/25 16:00 FiO2 28 01/12/25 10:00 BMI result Body Mass Index 33.9 GENERAL: Ill-appearing, moderate respiratory distress. SKIN: Normal skin color for ethnicity, warm, dry, no rashes noted. HEENT: Normocephalic, atraumatic, no stridor, EOMI. NECK: Soft, supple, full ROM, midline structures nontender, no step-offs, no deformities, no lymphadenopathy. CHEST: Heart regular tachycardia, symmetric chest rise and fall. PULMONARY: Diffuse wheezes throughout, tachypnea, poor air movement bilaterally, moderate respiratory distress. ABDOMINAL: Soft, nontender, quiet bowel sounds in all quadrants. : Deferred. MUSCULOSKELETAL: Normal tone, full range of motion, no deformities, no peripheral edema. NEURO: Alert and oriented to person, CN II through XII intact, no focal neurologic deficits. PSYCHIATRIC: Anxious affect, appropriate demeanor. Course Course Course Narrative: Time: 17:44 Date: 01/12/25 Provider: Ihsan Jon MD The patient was signed out to me at change of shift this morning. The patient is a 54-year-old female with a history of severe COPD and frequent hospitalizations for her COPD. She was discharged from the hospital 2 days ago and returned last night complaining of worsening shortness of breath. Prior to my evaluation the patient has been treated with IV methylprednisolone, IV magnesium, and bronchodilators. The patient has laboratory workup was unremarkable. A venous blood gas showed no signs of hypercarbia. Her white count was elevated but she is on steroids currently. Her CRP was minimally elevated. A chest x-ray is negative. My suspicion for any process other than a straight forward COPD exacerbation is quite low. When I assumed care of the patient she has been put on CPAP here in the emergency room. She is normally on CPAP at night when she is at home although she may not be very compliant with this. While on CPAP she had fallen asleep and looked fairly comfortable. When taken off CPAP she seemed to exhibit increased work of breathing. She says that she continues to feel quite short of breath despite the treatment this morning. She will be readmitted to the hospitalist service for further care.. Medications Administered Generic Name Dose Route Start Last Admin Trade Name Freq PRN Reason Stop Dose Admin Albuterol/Ipratropium 3 ml 01/12/25 12:53 01/12/25 15:36 Albuterol/Iprat 2.5/0.5mg 3 Ml Ampul.Neb INHALE 3 ml RQ4H WHILE AWAKE PRN Administration sob Gabapentin 800 mg 01/12/25 17:00 01/12/25 17:03 Gabapentin 400 Mg Capsule PO 800 mg QID FLORENCE Administration Insulin Human Lispro 0 unit 01/12/25 16:30 01/12/25 17:03 Insulin Lispro 100 Unit/Ml 3 Ml Vial SUBCUT 4 unit QIDACHS FLORENCE Administration Protocol Morphine Sulfate 2 mg 01/12/25 12:55 01/12/25 13:35 Morphine Sulfate 2 Mg/Ml Cartridge IVPUSH 2 mg Q3H PRN Administration sob Protocol Discontinued Medications Generic Name Dose Route Start Last Admin Trade Name Brian PRN Reason Stop Dose Admin Albuterol Sulfate 5 mg/ 0 mg 01/12/25 05:09 01/12/25 05:15 Albuterol/Ipratropium 3 ml INHALE 01/12/25 05:10 7.5 each ONCE ONE Administration Albuterol Sulfate 2.5 mg/ 0 mg 01/12/25 08:13 01/12/25 08:15 Albuterol/Ipratropium 3 ml INHALE 01/12/25 08:14 1 dose ONCE ONE Administration Albuterol Sulfate 2.5 mg/ 0 mg 01/12/25 11:42 01/12/25 11:45 Albuterol/Ipratropium 3 ml INHALE 01/12/25 11:43 1 dose ONCE ONE Administration Magnesium Sulfate 2 gm in 50 mls @ 150 mls/hr 01/12/25 06:09 01/12/25 07:00 Magnesium Sulfate/H2o IV 01/12/25 06:28 Infused ONCE ONE Infusion Lactated Ringer's 1,000 mls @ 999 mls/hr 01/12/25 06:09 01/12/25 08:00 Lr IV 01/12/25 07:09 Infused .Q1H1M ONE Infusion Acetaminophen 1,000 mg in 100 mls @ 400 mls/hr 01/12/25 11:44 01/12/25 12:45 Ofirmev IV 01/12/25 11:58 Infused ONCE ONE Infusion Methylprednisolone Sodium Succinate 125 mg 01/12/25 06:09 01/12/25 06:39 Methylprednisolone Sod Succ 125 Mg/2 Ml Vial IVPUSH 01/12/25 06:10 125 mg ONCE ONE Administration Medical Decision Making Medical Decision Making [facility] Narrative: Patient presents today with chief complaint of shortness of breath. Differential diagnosis includes, but is not limited to, upper respiratory infection, pneumonia, COPD exacerbation, asthma exacerbation, CHF, pneumothorax, pleural effusion, pulmonary embolism, ACS. Broad-based work-up will be initiated to evaluate for etiology of patient's symptoms. 8:00 a.m. sign out to oncoming provider pending blood work, x-ray, medication effect and final disposition. Patient improving on DuoNeb treatment. Differential Diagnosis Differential Diagnoses: The differential diagnosis associated with the presentation includes (As above) Admission/Observation Consideration of admission/observation: Escalation of care including admission/observation considered Lab Data MDM Lab Attestation statement: I reviewed the patient's lab results. 01/12/25 05:37 01/12/25 05:37 Labs: Lab Results 01/12/25 01/12/25 Range/Units 05:37 05:41 WBC 16.0 H (4.8-10.8) X10*3/uL RBC 4.50 (4.20-5.50) X10*6/uL Hgb 9.3 L (12.0-16.0) g/dl Hct 32.8 L (37.0-47.0) % MCV 72.9 L (80.0-98.0) fL MCH 20.7 L (27.0-33.0) pg MCHC 28.4 L (31.0-35.0) g/dl RDW 17.6 H (11.0-16.0) % Plt Count 359 (160-400) X10*3/uL MPV 8.9 L (9.4-12.3) fL Immature Gran % (Auto) 0.4 (0.0-0.4) % Neut % (Auto) 61.9 (45-73) % Lymph % (Auto) 28.6 (20-40) % Eddy % (Auto) 8.0 (2-11) % Eos % (Auto) 0.9 (0-4) % Baso % (Auto) 0.2 (0-2) % Lymph # (Auto) 4.6 (1.2-4.9) X10*3/uL Eddy # (Auto) 1.3 H (0.1-1.2) X10*3/uL Eos # (Auto) 0.1 (0.0-0.4) X10*3/uL Baso # (Auto) 0.0 (0.0-0.2) X10*3/uL Abs Immat Gran (auto) 0.07 H (0.00-0.03) X10*3/uL Absolute Neuts (auto) 9.9 H (2.0-8.3) x10*3/uL Absolute Nucleated RBC 0.000 (0.0-0.012) X10*3/uL Nucleated RBC % (auto) 0.0 (0.0-0.2) /100WBC VBG pH 7.48 H (7.32-7.43) VBG pCO2 43 mmHg VBG pO2 120 mmHg VBG HCO3 33 H (22-26) mmol/L VBG O2 Saturation 99.0 % VBG Base Excess 9.0 mmol/L Sodium 144 (135-145) mmol/L Potassium 4.4 (3.3-5.1) mmol/L Chloride 107 (96-108) mmol/L Carbon Dioxide 27 (22-29) mmol/L Anion Gap 14 (12-20) BUN 23 H (9-16) mg/dL Creatinine 0.72 (0.5-1.4) mg/dL Estim Creat Clear Calc 77.6 Estimated GFR > 60 Random Glucose 130 H (60-115) mg/dL Calcium 8.6 (8.4-10.2) mg/dL Magnesium 1.8 (1.6-2.6) mg/dL Total Bilirubin 0.2 (0.0-1.0) mg/dL AST 30 (5-31) U/L ALT 20 (0-31) U/L Alkaline Phosphatase 83 (39-117) U/L Troponin I High Sens 23.3 H (<3.5-17.0) ng/L C-Reactive Protein 1.81 H (< or = 0.50) mg/dL Total Protein 6.3 L (6.5-8.0) g/dL Albumin 3.6 (3.5-5.0) g/dL Discharge Plan Discharge Clinical Impression: Acute exacerbation of chronic obstructive pulmonary disease Patient Disposition: Admitted As Inpatient Interventions: Admission Worksheet (ED) Last Done: 01/12/25 17:33
--- NOTE | 2025-01-12 12:56 | PM.IMHP ---
History of Present Illness Date of Service: 01/12/25 Chief Complaint: sob 54F PMH severe persistent asthma/COPD with recurrent hospitalizations, chronic hypoxic respiratory failure on 2-3 L home O2, HENRY noncompliant with BiPAP, polysubstance dependence, chronic systolic CHF with EF of 40-45%, hypertension, obesity, diabetes presented with shortness of breath. Patient was discharged 2 days prior to presentation. States she was feeling well at that time but then after coming home quickly started feeling worse, difficulty catching breath, short of breath even at rest. Denies cough, chest pain, fever or chills. In ED, pCO2 43. cxr unremarkable. Review of Systems Review of Systems: Yes all other systems are reviewed and are negative [facility] Medical History Chronic lung disease Chronic lung disease BAHMAN (generalized anxiety disorder) COPD (chronic obstructive pulmonary disease) Cocaine use disorder Cocaine abuse GERD (gastroesophageal reflux disease) Constipation Non-insulin dependent type 2 diabetes mellitus HENRY (obstructive sleep apnea) Acute exacerbation of chronic obstructive airways disease Asthma with exacerbation Obesity hypoventilation syndrome Chronic lung disease Hypoxic respiratory failure Nocturnal hypoxemia Diabetes mellitus COPD exacerbation Crack cocaine use Hyperkalemia Metabolic acidosis Leukocytosis Chest discomfort Chronic renal failure, stage 2 (mild) SOB (shortness of breath) Asthma Smoker Rotator cuff tendonitis GERD (gastroesophageal reflux disease) Chronic idiopathic constipation Bustos's esophagus Depression High triglycerides Gastroparesis Carpal tunnel syndrome of right wrist Nausea & vomiting Hernia Acute and chronic respiratory failure, unspecified whether with hypoxia or hypercapnia HTN (hypertension) Obesity (BMI 30-39.9) Knee pain, bilateral Family History Father Heart disease HENRY (obstructive sleep apnea) Family history of breast cancer Mother Asthma Emphysema, unspecified Bronchitis Smoker Alcoholism Bone marrow disease Maternal Grandmother Diabetes Surgical History History of cholecystectomy (~1988) History of carpal tunnel release Hx of tubal ligation History of pubovaginal sling (~2015) History of umbilical hernia repair (~2001) Hx of section History of open reduction and internal fixation (ORIF) procedure History of esophagogastroduodenoscopy (EGD) Social History Household Members: Family Household Members Other:: sister Housing: House Housing Other:: 3 family house Are you a primary rn managed care to a significant other at home: No Do you presently have visiting nurse or other home services: Yes Unable to assess alcohol history related to: Unknown Alcohol intake: never Comment: refusing socks Patient Tobacco Use Status: Current everyday Tobacco user Tobacco use type: Cigarette Cigarette Packs Per Day: 0.5 Cigarettes Per Day: 10.0 Years Smoked: 40 e-Cigarette/Vaping Use: Currently Using Second Hand Smoke Exposure: Yes Substance Use Type: Crack/Cocaine Advance Directives: Yes Advance Directives on File: Yes Advance Directives Date on File: 12/19/23 Do you have a plan to hurt others: No Plan service: No Current occupational status: disabled 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 Meds Allergies Allergy/AdvReac Type Severity Reaction Status Date / Time doxycycline Allergy Severe Swelling Verified 01/12/25 05:10 varenicline (From CHANTIX) Allergy Severe ANAPHYLAXIS Verified 01/12/25 05:10 azithromycin Allergy Intermediate Rash Verified 01/12/25 05:10 barium sulfate Allergy Intermediate angioedema Verified 01/12/25 05:10 cetirizine Allergy Mild Rash Verified 01/12/25 05:10 famotidine Allergy Mild Rash Verified 01/12/25 05:10 linaclotide (Linzess) Allergy Mild Rash Verified 01/12/25 05:10 Active Medications: Current Medications Acetaminophen (Acetaminophen 325 Mg Tablet) 650 mg PO Q6H PRN PRN Reason: Pain, Mild 1-3,fever,headache Albuterol/Ipratropium (Albuterol/Iprat 2.5/0.5mg 3 Ml Ampul.Neb) 3 ml INHALE RQ4H WHILE AWAKE PRN PRN Reason: sob Calcium Carbonate (Calcium Carbonate 750 Mg Tab.Chew) 750 mg PO Q4H PRN PRN Reason: Heartburn Enoxaparin Sodium (Enoxaparin Sodium 40 Mg/0.4 Ml Syringe) 40 mg SUBCUT Q24H FLORENCE Magnesium Hydroxide (Milk Of Magnesia 30 Ml Oral.Susp) 30 ml PO DAILY PRN PRN Reason: Constipation Melatonin (Melatonin 3 Mg Tablet) 6 mg PO BEDTIME PRN PRN Reason: Insomnia Methylprednisolone Sodium Succinate (Methylprednisolone Sod Succ 40 Mg/Ml Vial) 40 mg IVPUSH Q12H [facility] Sodium Chloride (0.9 % Sodium Chloride Flush 3 Ml Syringe) 3 ml IVFLUSH QSHIFT [facility] Home Medications ?Medication ?Instructions ?Recorded ?Confirmed ?Last Taken ?Type sertraline 25 mg tablet 25 mg PO DAILY 11/12/24 01/09/25 12/16/24 History tiotropium 2.5 mcg-olodaterol 2.5 2 puff inhalation DAILY 11/26/24 01/09/25 12/16/24 History mcg/actuation mist for inhalation (Stiolto Respimat) insulin glargine 100 unit/mL (3 16 unit subcut BEDTIME 12/01/24 01/09/25 12/16/24 History mL) subcutaneous pen (Lantus Solostar U-100 Insulin) quetiapine 50 mg tablet 50 mg PO BID 12/18/24 01/09/25 12/16/24 History topiramate 25 mg tablet 50 mg PO BID 12/18/24 01/09/25 12/16/24 History furosemide 20 mg tablet 40 mg PO DAILY 01/09/25 01/09/25 Unknown History ipratropium 0.5 mg-albuterol 3 mg 3 ml inhalation QID PRN Shortness 01/09/25 01/09/25 Unknown History (2.5 mg base)/3 mL nebulization Of Breath Or Wheezing soln Physical Exam Vital Signs and Narrative: Vital Signs: Last Vital Signs Temp 98.0 F 01/12/25 08:51 Pulse 91 01/12/25 11:47 Resp 18 01/12/25 11:47 BP 141/66 H 01/12/25 10:00 Pulse Ox 97 01/12/25 10:00 O2 Del Method BiPAP 01/12/25 10:00 FiO2 28 01/12/25 10:00 BMI result Body Mass Index 33.9 General: AO X 3, dyspneic, cushingoid Resp: Poor air movement, wheezing bilateral, accessory muscles used, tachypneic CVS: S1,S2,RRR GI: soft, non tender, non distended Neuro: motor grossly intact, alert Psych: appropriate affect, appropriate insight Results Labs 01/12/25 05:37 01/12/25 05:37 Labs: Laboratory Results - last 24 hr 01/12/25 01/12/25 05:37 05:41 MCV 72.9 L MCH 20.7 L MCHC 28.4 L RDW 17.6 H Plt Count 359 MPV 8.9 L Immature Gran % (Auto) 0.4 Neut % (Auto) 61.9 Lymph % (Auto) 28.6 Morton % (Auto) 8.0 Eos % (Auto) 0.9 Baso % (Auto) 0.2 Lymph # (Auto) 4.6 Morton # (Auto) 1.3 H Eos # (Auto) 0.1 Baso # (Auto) 0.0 Abs Immat Gran (auto) 0.07 H Absolute Neuts (auto) 9.9 H Absolute Nucleated RBC 0.000 Nucleated RBC % (auto) 0.0 VBG pH 7.48 H VBG pCO2 43 VBG pO2 120 VBG HCO3 33 H VBG O2 Saturation 99.0 VBG Base Excess 9.0 Anion Gap 14 Estim Creat Clear Calc 77.6 Estimated GFR > 60 Random Glucose 130 H Calcium 8.6 Magnesium 1.8 Total Bilirubin 0.2 AST 30 ALT 20 Alkaline Phosphatase 83 C-Reactive Protein 1.81 H Total Protein 6.3 L Albumin 3.6 Assessment and Plan (1) Crack cocaine use: Status: Acute Plan 54F PMH severe persistent asthma/COPD with recurrent hospitalizations, chronic hypoxic respiratory failure on 2-3 L home O2, HENRY noncompliant with BiPAP, polysubstance dependence, chronic systolic CHF with EF of 40-45%, hypertension, obesity, diabetes presented with shortness of breath Acute respiratory distress due to chronic hypoxic respiratory failure and severe persistent asthma/COPD with acute decompensation Steroids, DuoNebs, morphine for work of breathing, avoid allergens such as cocaine Diabetes Insulin sliding scale Chronic systolic CHF Continued maintenance Lasix, losartan Hyperlipidemia Continue statin DVT prophylaxis with Lovenox Full Code Quality Stroke Does the patient have a stroke diagnosis?: No VTE Prior VTE?: No VTE Risk Level:: Medical - moderate - high VTE Device Contraindication: Treatment Not Indicated VTE Drug Contraindication: N/A - Med Ordered
--- NOTE | 2025-01-12 15:26 | PHA.MEDREC ---
Addendum entered by Hector Uriostegui [facility] 01/12/25 15:38: med rec checked by [facility] Original Note: Pharmacy Consult ? Medication Reconciliation Pharmacy has completed the medication reconciliation. Spoke with pt and she confirmed she was just here 01/10 and stated there was no changed from the DC. Pt states she ran out of the Codine-Guaifenesin and Nicotine patches. Pt states she finished the Prednisone 10mg regimen this past week; claims shows she got that last 12/21 for 30 days. Pt also states she is waiting for the Prednisone 20mg regimen to come in through her mail order service to start that. Pt confirmed she no longer takes the Sertraline 25 mg tab and is now only taking the Sertraline 100mg tab 1 tab BID.
[2025-01-12] MEDS: Albuterol/Iprat 2.5/0.5MG 3 ML AMPUL.NEB INHALE ×2 (15:36→18:39)
[2025-01-12 16:36] LABS: Glucose, Whole Blood 229 mg/dL (60-115)
[2025-01-12] MEDS: 0.9 % Sodium Chloride Flush 3 ML SYRINGE IVFLUSH ×2 (17:52→23:59)
[2025-01-12 20:48] LABS: Glucose, Whole Blood 103 mg/dL (60-115)
[2025-01-12] MEDS: Insulin Glargine,Hum.rec.anlog 100 UNIT/ML 10 ML VIAL 16 UNIT SUBCUT (20:55)
[2025-01-12] MEDS: Theophylline Anhydrous ER 400 MG TAB.ER.24H PO (22:51)
--- NOTE | 2025-01-12 23:11 | PC.NURSE ---
Patient presented to [facility] c/o sob. Admitting diagnosis COPD exacerbation. Patient is A&Ox2 , alert to person and place. LS are diminished/coarse , orthopnea, and increased WOB noted. Vital signs stable, O2 sats 94% on 2L O2/bipap at night for sleep. Patient complains of abdominal pain stating d/t hernia, positive BS x4. Medicated with Morphine 2 mg IV with good effect. Patient resting at present, awaiting bed for admission. Safety measures in place , bed alarm on , call ott within reach.
[2025-01-13] VITALS (14 sets, daily range): BP systolic 112–146; BP diastolic 58–77; PULSE 74–108; RESP 12–20; TEMP 36.1–37.1; O2SAT 88–98; BMI 34.4
[2025-01-13 01:03] LABS: Glucose, Whole Blood 252 mg/dL (60-115)
[2025-01-13] MEDS: Albuterol/Iprat 2.5/0.5MG 3 ML AMPUL.NEB INHALE ×5 (01:18→19:06)
--- NOTE | 2025-01-13 02:33 | PC.NURSE ---
Addendum entered by Elisabeth Olmedo RN 01/13/25 06:21: Patient more alert, more easily arousable this morning. 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 Reoriented. Able to take scheduled po prilosec without issues while briefly off bipap. Addendum entered by Elisabeth Olmedo RN 01/13/25 03:54: Mentation unchanged on 03:30 reassessment. RT at bedside, adjusted bipap settings, now 18/10 (previously 16/8/21%). Dr. Coelho notified. Advised will order morning vbg. Original Note: Patient arrived to [facility]/ from ED overflow at approximately 00:50 this morning. This patient is seen this admission for COPD exacerbation for which she wears 2-3L nc at baseline, per chart review. Admission assessment questions were limited due to patient lethargy/somnolence on arrival to unit. This patient would alert to touch and light pain and look at this gag writer briefly before very quickly fall back asleep as evidenced by snoring. Speech mumbled, with patient only able to state my sister and house for Who do you live with? and Where do you live? assessment questions. POC was obtained showing 252. Nursing excavating supervisor and covering Dr. Coelho were notified. Nursing excavating supervisor presented to bedside. This pt arrived to this unit on 2L nc, though per RT, this pt had been on bipap in the ED until just prior to transport, at which time they were switched to nc for transportation purposes. This was confirmed with the ED RN who reported this patient had been on bipap for several hours overnight tonight. On chart review with RT, it appears this patient had been on bipap at 15:37. This pt was replaced on bipap by RT shortly after arrival to this unit. MD advised gag writer to place this patient on continuous spo2 monitoring with a goal of 88-92%. This was discussed with RT; the patient has required 1-2.5L in-line oxygen via the bipap to maintain goal goal. MD was made aware of this. Enterprise Application Analyst requested a repeat VBG per discussion with MD, however it is also of note that this patient received multiple scheduled meds earlier this evening that could also be contributing to the somnolence (see MAR). MD advised to reassess patient's mentation around 03:30 to determine further plan. Patient remains NPO while on Bipap with aspiration precautions in place. No oral secretions noted. Bed alarm on and safety measures in place. Call ott within reach. Plan of care initiated and ongoing. ??
[2025-01-13 06:34] LABS: Hematocrit 35.1 % (37.0-47.0); Hemoglobin 9.5 g/dl (12.0-16.0); Mean Corpuscular HGB Conc 27.1 g/dl (31.0-35.0); Mean Corpuscular Hemoglobin 20.3 pg (27.0-33.0); Mean Corpuscular Volume 75.0 fL (80.0-98.0); NRBC Abs Auto 0.020 X10*3/uL (0.0-0.012); NRBC Pct Auto 0.2 /100WBC (0.0-0.2); Platelet Count 354 X10*3/uL (160-400); Red Blood Count 4.68 X10*6/uL (4.20-5.50); White Blood Count 12.4 X10*3/uL (4.8-10.8)
[2025-01-13 06:36] LABS: Venous Blood Gas Refer to POC result
[2025-01-13 06:37] LABS: VBG HCO3 28 mmol/L (22-26); VBG O2 % Saturation 59.0 %
[2025-01-13 06:49] LABS: Anion Gap 13 (12-20); Blood Urea Nitrogen 18 mg/dL (9-16); Calcium 9.0 mg/dL (8.4-10.2); Carbon Dioxide 27 mmol/L (22-29); Chloride 108 mmol/L (96-108); Creatinine Clr Calc Pharmacy 79.3; Estimated Glomerular Filt Rate > 60; Magnesium 2.0 mg/dL (1.6-2.6); Potassium 4.8 mmol/L (3.3-5.1); Sodium 143 mmol/L (135-145)
[2025-01-13 07:56] LABS: Glucose, Whole Blood 184 mg/dL (60-115)
[2025-01-13] MEDS: 0.9 % Sodium Chloride Flush 3 ML SYRINGE IVFLUSH ×3 (08:23→20:43)
[2025-01-13] MEDS: Theophylline Anhydrous ER 400 MG TAB.ER.24H PO ×2 (08:24→20:41)
[2025-01-13] MEDS: Aspirin Enteric Coated 81 MG TABLET.DR PO (08:24)
--- NOTE | 2025-01-13 09:27 | MHC.CM.PN ---
Patient lives in a home w/ her sister. Her daughter/HCP, Jaja, is also her COSTUMER ASSISTANT - 73 hrs/wk and assists w/ all ADL's. Mostly ambulates w/ walker. Also has a cane, w/c for long distances. [employer] supplies home O2 (2-3L @ baseline) and BiPAP (noncompliant w/ use). Active w/ [facility] for SN. PCP Joe Hale SUPPLY CHAIN COORDINATOR HCP on file and verified. DP: Goal is home, resume services, requesting BLS transport. CM will continue to follow.
--- NOTE | 2025-01-13 09:33 | P.PNIM_ITS ---
Subjective Subjective Date of Service: 01/13/25 Interval History: feeling worse Physical Exam 2 Vital Signs: Vital Signs: Last Vital Signs Temp 97.6 F 01/13/25 08:00 Pulse 88 01/13/25 08:33 Resp 12 01/13/25 08:33 BP 146/77 H 01/13/25 08:00 Pulse Ox 91 L 01/13/25 08:00 O2 Del Method CPAP 01/13/25 08:00 O2 Flow Rate 1.5 01/13/25 03:39 FiO2 28 01/12/25 10:00 BMI result Body Mass Index 34.4 General: AO X 3, dyspneic, cushinoid Resp: Poor air movement, wheezing bilateral, accessory muscles used, tachypneic CVS: S1,S2,RRR GI: soft, non tender, non distended Neuro: motor grossly intact, alert Psych: appropriate affect, appropriate insight Objective Data Active Medications Acetaminophen (Acetaminophen 325 Mg Tablet) 650 mg PO Q6H PRN PRN Reason: Pain, Mild 1-3,fever,headache Albuterol/Ipratropium (Albuterol/Iprat 2.5/0.5mg 3 Ml Ampul.Neb) 3 ml INHALE RQ4H WHILE AWAKE PRN PRN Reason: sob Last Admin: 01/13/25 01:18 Dose: 3 ml Documented By: SUKHDEEP Albuterol/Ipratropium (Albuterol/Iprat 2.5/0.5mg 3 Ml Ampul.Neb) 3 ml INHALE QID PRN PRN Reason: Shortness Of Breath Or Wheezing Albuterol/Ipratropium (Albuterol/Iprat 2.5/0.5mg 3 Ml Ampul.Neb) 3 ml INHALE RQ4H WHILE AWAKE [facility] Last Admin: 01/13/25 08:32 Dose: 3 ml Documented By: MICHELLE Aspirin (Aspirin Enteric Coated 81 Mg Tablet.) 81 mg PO DAILY [facility] Last Admin: 01/13/25 08:24 Dose: 81 mg Documented By: TOMÁS Atorvastatin Calcium (Atorvastatin Calcium 40 Mg Tablet) 40 mg PO BEDTIME [facility] Last Admin: 01/12/25 20:55 Dose: 40 mg Documented By: TRUDI Calcium Carbonate (Calcium Carbonate 750 Mg Tab.Chew) 750 mg PO Q4H PRN PRN Reason: Heartburn Dextrose (Dextrose 50 % 25 Gm/50 Ml Syringe) 25 gm IVPUSH Q15M PRN; Protocol PRN Reason: per Hypoglycemia Standing Ord. Enoxaparin Sodium (Enoxaparin Sodium 40 Mg/0.4 Ml Syringe) 40 mg SUBCUT Q24H [facility] Last Admin: 01/13/25 08:23 Dose: 40 mg Documented By: TOMÁS Furosemide (Furosemide 40 Mg Tablet) 40 mg PO DAILY [place]; Protocol Last Admin: 01/13/25 08:24 Dose: 40 mg Documented By: TOMÁS Gabapentin (Gabapentin 400 Mg Capsule) 800 mg PO QID [place] Last Admin: 01/13/25 08:24 Dose: 800 mg Documented By: TOMÁS Glucose (Glucose Gel 15 Gm Gel..Gram.) 15 gm PO Q15M PRN; Protocol PRN Reason: per Hypoglycemia Standing Ord. Insulin Glargine (Insulin Glargine,Hum.Rec.Anlog 100 Unit/Ml 10 Ml Vial) 16 unit SUBCUT BEDTIME [facility] Last Admin: 01/12/25 20:55 Dose: 16 unit Documented By: TRUDI Insulin Human Lispro (Insulin Lispro 100 Unit/Ml 3 Ml Vial) 0 unit SUBCUT QIDACHS [facility]; Protocol Last Admin: 01/13/25 07:55 Dose: Not Given Documented By: TOMÁS Non-Admin Reason: No Insulin Coverage Loratadine (Loratadine 10 Mg Tablet) 10 mg PO DAILY [facility] Last Admin: 01/13/25 08:24 Dose: 10 mg Documented By: TOMÁS Losartan Potassium (Losartan Potassium 50 Mg Tablet) 50 mg PO DAILY [place]; Protocol Last Admin: 01/13/25 08:24 Dose: 50 mg Documented By: TOMÁS Magnesium Hydroxide (Milk Of Magnesia 30 Ml Oral.Susp) 30 ml PO DAILY PRN PRN Reason: Constipation Melatonin (Melatonin 3 Mg Tablet) 6 mg PO BEDTIME PRN PRN Reason: Insomnia Methylprednisolone Sodium Succinate (Methylprednisolone Sod Succ 40 Mg Vial) 40 mg IVPUSH Q12H [facility] Last Admin: 01/13/25 06:17 Dose: 40 mg Documented By: SOHA Morphine Sulfate (Morphine Sulfate 2 Mg/Ml Cartridge) 2 mg IVPUSH Q3H PRN; Protocol PRN Reason: sob Last Admin: 01/12/25 21:19 Dose: 2 mg Documented By: TRUDI Omeprazole (Omeprazole 20 Mg Capsule.Dr) 20 mg PO DAILY@0630 [facility] Last Admin: 01/13/25 06:18 Dose: 20 mg Documented By: SOHA Quetiapine Fumarate (Quetiapine Fumarate 50 Mg Tablet) 50 mg PO BID [facility] Last Admin: 01/13/25 08:24 Dose: 50 mg Documented By: TOMÁS Sertraline HCl (Sertraline Hcl 100 Mg Tablet) 100 mg PO BID [facility] Last Admin: 01/13/25 08:24 Dose: 100 mg Documented By: TOMÁS Sodium Chloride (0.9 % Sodium Chloride Flush 3 Ml Syringe) 3 ml IVFLUSH QSHIFT [facility] Last Admin: 01/13/25 08:23 Dose: 3 ml Documented By: TOMÁS Theophylline (Theophylline Anhydrous Er 400 Mg Tab.Er.24h) 400 mg PO BID [facility] Last Admin: 01/13/25 08:24 Dose: 400 mg Documented By: TOMÁS Tizanidine HCl (Tizanidine Hcl 4 Mg Tablet) 4 mg PO BID [facility] Last Admin: 01/13/25 08:24 Dose: 4 mg Documented By: TOMÁS Topiramate (Topiramate 25 Mg Tablet) 50 mg PO BID [facility] Last Admin: 01/13/25 08:25 Dose: 50 mg Documented By: TOMÁS Labs 01/13/25 06:27 01/13/25 06:27 Labs: Laboratory Results - last 24 hr 01/12/25 01/12/25 01/12/25 05:37 16:32 20:44 MCV MCH MCHC RDW Plt Count MPV Absolute Nucleated RBC Nucleated RBC % (auto) VBG pH VBG pCO2 VBG pO2 VBG HCO3 VBG O2 Saturation VBG Base Excess Anion Gap Estim Creat Clear Calc Estimated GFR POC Glucose 229 H 103 Random Glucose Calcium Magnesium C-Reactive Protein 1.81 H 01/13/25 01/13/25 01/13/25 00:57 06:27 06:32 MCV 75.0 L MCH 20.3 L MCHC 27.1 L RDW 18.0 H Plt Count 354 MPV 8.9 L Absolute Nucleated RBC 0.020 H Nucleated RBC % (auto) 0.2 VBG pH 7.45 H VBG pCO2 39 VBG pO2 42 VBG HCO3 28 H VBG O2 Saturation 59.0 VBG Base Excess 4.3 Anion Gap 13 Estim Creat Clear Calc 79.3 Estimated GFR > 60 POC Glucose 252 H Random Glucose 200 H Calcium 9.0 Magnesium 2.0 C-Reactive Protein 01/13/25 07:50 MCV MCH MCHC RDW Plt Count MPV Absolute Nucleated RBC Nucleated RBC % (auto) VBG pH VBG pCO2 VBG pO2 VBG HCO3 VBG O2 Saturation VBG Base Excess Anion Gap Estim Creat Clear Calc Estimated GFR POC Glucose 184 H Random Glucose Calcium Magnesium C-Reactive Protein Assessment and Plan (1) Crack cocaine use: Status: Acute Plan 54F PMH severe persistent asthma/COPD with recurrent hospitalizations, chronic hypoxic respiratory failure on 2-3 L home O2, HENRY noncompliant with BiPAP, polysubstance dependence, chronic systolic CHF with EF of 40-45%, hypertension, obesity, diabetes presented with shortness of breath Acute respiratory distress due to chronic hypoxic respiratory failure and severe persistent asthma/COPD with acute decompensation Steroids, DuoNebs, morphine for work of breathing, avoid triggers such as cocaine, house allergens Diabetes Insulin sliding scale Chronic systolic CHF Continued maintenance Lasix, losartan Hyperlipidemia Continue statin DVT prophylaxis with Lovenox Full Code reason for continued hospitalization:resp distress Quality Stroke Does the patient have a stroke diagnosis?: No VTE Prior VTE?: No VTE Risk Level:: Medical - moderate - high VTE Device Contraindication: Treatment Not Indicated VTE Drug Contraindication: N/A - Med Ordered
[2025-01-13 11:26] LABS: Glucose, Whole Blood 259 mg/dL (60-115)
[2025-01-13] MEDS: guaiFENesin 200 MG/10 ML 10 ML LIQUID PO (14:07)
[2025-01-13 16:37] LABS: Glucose, Whole Blood 173 mg/dL (60-115)
[2025-01-13] MEDS: Insulin Glargine,Hum.rec.anlog 100 UNIT/ML 10 ML VIAL 16 UNIT SUBCUT (20:54)
[2025-01-13 20:57] LABS: Glucose, Whole Blood 260 mg/dL (60-115)
[2025-01-14 03:08] VITALS: BP 135/69; PULSE 89; RESP 20; TEMP 36.1; O2SAT 92
[2025-01-14 05:34] LABS: Venous Blood Gas Refer to POC result
[2025-01-14 05:37] LABS: VBG HCO3 28 mmol/L (22-26); VBG O2 % Saturation 99.0 %
[2025-01-14 05:58] LABS: Hematocrit 28.9 % (37.0-47.0); Hemoglobin 8.1 g/dl (12.0-16.0); Mean Corpuscular HGB Conc 28.0 g/dl (31.0-35.0); Mean Corpuscular Hemoglobin 20.1 pg (27.0-33.0); Mean Corpuscular Volume 71.7 fL (80.0-98.0); NRBC Abs Auto 0.020 X10*3/uL (0.0-0.012); NRBC Pct Auto 0.2 /100WBC (0.0-0.2); Platelet Count 331 X10*3/uL (160-400); Red Blood Count 4.03 X10*6/uL (4.20-5.50); White Blood Count 11.2 X10*3/uL (4.8-10.8)
[2025-01-14 06:25] LABS: Anion Gap 13 (12-20); Blood Urea Nitrogen 30 mg/dL (9-16); Calcium 8.9 mg/dL (8.4-10.2); Carbon Dioxide 27 mmol/L (22-29); Chloride 104 mmol/L (96-108); Creatinine Clr Calc Pharmacy 70.4; Estimated Glomerular Filt Rate > 60; Potassium 3.7 mmol/L (3.3-5.1); Sodium 140 mmol/L (135-145)
[2025-01-14 07:33] VITALS: BP 133/95; PULSE 95; RESP 18; TEMP 36.3; O2SAT 92
[2025-01-14 07:43] LABS: Glucose, Whole Blood 266 mg/dL (60-115)
[2025-01-14] MEDS: guaiFENesin 200 MG/10 ML 10 ML LIQUID PO (08:05)
[2025-01-14] MEDS: Aspirin Enteric Coated 81 MG TABLET.DR PO (08:05)
[2025-01-14] MEDS: Theophylline Anhydrous ER 400 MG TAB.ER.24H PO (08:06)
[2025-01-14] MEDS: 0.9 % Sodium Chloride Flush 3 ML SYRINGE IVFLUSH (08:10)
[2025-01-14 08:19] VITALS: PULSE 74; RESP 17; RESP 19; O2SAT 90; O2SAT 94
[2025-01-14] MEDS: Albuterol/Iprat 2.5/0.5MG 3 ML AMPUL.NEB INHALE ×2 (08:19→11:53)
--- NOTE | 2025-01-14 09:29 | PC.NURSE ---
Pt may come off of continuous Pulse ox monitoring as per Nikole
--- NOTE | 2025-01-14 09:49 | P.DS_ITS ---
DS: Providers Provider Date of Service: 01/14/25 Date of admission: 01/12/25 12:46 Date of discharge: 01/14/25 Primary care physician: Joe Hale [facility] DS: Diagnosis Discharge Diagnosis (1) Crack cocaine use: Status: Acute DS: Summary Hospital Course Hospital Course: from initial hpi: 54F PMH severe persistent asthma/COPD with recurrent hospitalizations, chronic hypoxic respiratory failure on 2-3 L home O2, HENRY noncompliant with BiPAP, polysubstance dependence, chronic systolic CHF with EF of 40-45%, hypertension, obesity, diabetes presented with shortness of breath. Patient was discharged 2 days prior to presentation. States she was feeling well at that time but then after coming home quickly started feeling worse, difficulty catching breath, short of breath even at rest. Denies cough, chest pain, fever or chills. In ED , pCO2 43. cxr unremarkable. hospital course: Patient was admitted for acute respiratory distress due to chronic hypoxic respiratory failure and severe persistent asthma/COPD with acute decompensation. Was treated with steroids, nebs, morphine for work of breathing. Patient was educated and has recommended to avoid triggers such as crack cocaine and house allergens. Symptoms eventually improved and will be discharged home on 10 day prednisone taper. Patient states she is planning to go to her daughter's house to avoid using drugs and house allergens. For diabetes was continued on insulin sliding scale. For chronic systolic CHF was continued on maintenance Lasix and losartan. For hyperlipidemia continued on statin. Time Attestation Discharge Coordination Time (in mins): 34 Quality: Safe Use of Opioids Does Pt have an Active Cancer Diagnosis on the Problem List?: No Quality: Stroke Does the patient have a stroke diagnosis?: No Physical Exam Vital Signs: Vital Signs: Last Vital Signs Temp 97.3 F 01/14/25 07:33 Pulse 74 01/14/25 08:19 Resp 17 01/14/25 08:19 BP 133/95 H 01/14/25 07:33 Pulse Ox 92 01/14/25 07:33 O2 Del Method Room Air 01/14/25 07:33 O2 Flow Rate 1.5 01/13/25 03:39 FiO2 28 01/12/25 10:00 BMI result Body Mass Index 34.4 General: AO X 3, no acute distress, cushinoid Resp: diminsihed bilateral, no accessory muscles used CVS: S1,S2,RRR GI: soft, non tender, non distended Neuro: motor grossly intact, alert Psych: appropriate affect, appropriate insight DS: Data Data Completed and Pending Completed studies during hospitalization [Text1]: Procedures Assistance with Respiratory Ventilation, 24-96 Consecutive Hours, Continuous Positive Airway Pressure (10/30/24) Assistance with Respiratory Ventilation, Less than 24 Consecutive Hours, Continuous Positive Airway Pressure (12/18/24) Insertion of Endotracheal Airway into Trachea, Via Natural or Artificial Opening (10/30/24) Insertion of Infusion Device into Superior Vena Cava, Percutaneous Approach (11/03/20) Introduction of Vasopressor into Peripheral Vein, Percutaneous Approach (10/30/24) Respiratory Ventilation, Less than 24 Consecutive Hours (10/30/24) Labs on day of discharge: Laboratory Results - last 24 hr 01/13/25 01/13/25 01/13/25 11:10 16:16 20:50 WBC RBC Hgb Hct MCV MCH MCHC RDW Plt Count MPV Absolute Nucleated RBC Nucleated RBC % (auto) VBG pH VBG pCO2 VBG pO2 VBG HCO3 VBG O2 Saturation VBG Base Excess Sodium Potassium Chloride Carbon Dioxide Anion Gap BUN Creatinine Estim Creat Clear Calc Estimated GFR POC Glucose 259 H 173 H 260 H Random Glucose Calcium 01/14/25 01/14/25 01/14/25 05:30 05:33 07:38 WBC 11.2 H RBC 4.03 L Hgb 8.1 L Hct 28.9 L MCV 71.7 L MCH 20.1 L MCHC 28.0 L RDW 17.9 H Plt Count 331 MPV 9.3 L Absolute Nucleated RBC 0.020 H Nucleated RBC % (auto) 0.2 VBG pH 7.43 VBG pCO2 41 VBG pO2 116 VBG HCO3 28 H VBG O2 Saturation 99.0 VBG Base Excess 3.6 Sodium 140 Potassium 3.7 D Chloride 104 Carbon Dioxide 27 Anion Gap 13 BUN 30 H Creatinine 0.80 Estim Creat Clear Calc 70.4 Estimated GFR > 60 POC Glucose 266 H Random Glucose 213 H Calcium 8.9 Discharge Plan Discharge Anticipated Discharge Date/Time: 01/14/25 09:45 Patient Disposition: Home, Self-Care Discharge Diagnosis: asthma/copd Referrals: Joe Hale, SPANISH TEACHER-BC [Primary Care Provider, Internal Medicine] - 1 Week Discharge Medications: New guaifenesin 100 mg/5 mL Liquid 100 mg PO Q4H PRN (Reason: Cough) Qty: 1000 0RF prednisone 20 mg tablet 40 mg PO DAILY Qty: 15 0RF Rx Instructions: 40mg daily for 5 days, then 20mg daily for 5 days Continued (DME) cane Device See Rx Instructions .Route Qty: 1 0RF Rx Instructions: Standard cane (DME) Rollator walker See Rx Instructions .Route .MEDSUPPLY Qty: 1 0RF Rx Instructions: As directed (DME) pulse oximeter See Rx Instructions .Route .MEDSUPPLY Qty: 1 0RF Rx Instructions: As directed (DME) FreeStyle Jemima 3 [place] Misc See Rx Instructions .Route Qty: 1 0RF Rx Instructions: To monitor blood sugar 4 times per day albuterol sulfate 2.5 mg /3 mL (0.083 %) solution for nebulization 2.5 mg inhalation Q4H PRN (Reason: Shortness Of Breath/Wheezing) Qty: 180 6RF theophylline 400 mg tablet extended release 24 hr 400 mg PO BID 90 Days Qty: 180 4RF albuterol sulfate [Ventolin HFA] 90 mcg/actuation HFA aerosol inhaler 2 puff inhalation Q6H PRN (Reason: for wheezing) Qty: 1 6RF acetaminophen 650 mg tablet extended release 650 mg PO Q12H PRN (Reason: pain) 30 Days Qty: 60 0RF aspirin 81 mg tablet,delayed release (DR/EC) 81 mg PO DAILY 90 Days Qty: 90 1RF atorvastatin 40 mg tablet 40 mg PO BEDTIME Qty: 90 0RF (DME) FreeStyle Lite Strips Strip See Rx Instructions .ROUTE .MEDSUPPLY Qty: 100 1RF Rx Instructions: Use to check blood sugar daily or if symptomatic hypo/hypergylcemia calcium carbonate-vitamin D3 500 mg-10 mcg (400 unit) tablet 1 tab PO DAILY Qty: 90 0RF (DME) 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 meter [FreeStyle Lite Meter] Kit See Rx Instructions .ROUTE .MEDSUPPLY Qty: 1 0RF Rx Instructions: Use to check blood sugar daily or if symptomatic for hypo/hyperglycemia esomeprazole magnesium 40 mg capsule,delayed release(DR/EC) 40 mg PO DAILY@0630 Qty: 90 1RF fexofenadine [Elisabeth Allergy] 180 mg tablet 180 mg PO DAILY Qty: 30 3RF glucose 4 gram tablet,chewable 16 g PO Q15M MDD 8 tabs PRN (Reason: hypoglycemia) Qty: 100 1RF Rx Instructions: until symptoms of low blood sugar are controlled ibuprofen 800 mg tablet 800 mg PO BID PRN (Reason: Headache) 30 Days Qty: 60 0RF Rx Instructions: please use sparingly due to diabetes (DME) lancets [FreeStyle Lancets] 28 gauge misc See Rx Instructions .ROUTE .MEDSUPPLY Qty: 100 1RF Rx Instructions: Use to check blood sugar daily or if symptomatic hypo/hypergylcemia losartan 50 mg tablet 50 mg PO DAILY Qty: 90 0RF (DME) FreeStyle Jemima 3 Plus Sensor Device See Rx Instructions .Route Qty: 2 5RF Rx Instructions: To monitor blood sugars 4 times per day. Change sensor every 15 days (DME) pen needle, diabetic 31 gauge x 5/16 needle See Rx Instructions .Route Qty: 100 0RF Rx Instructions: Use to inject insulin once a day tizanidine 4 mg tablet 4 mg PO Q12H 30 Days Qty: 60 0RF Rx Instructions: do not take concurrently with famotidine gabapentin 800 mg tablet 800 mg PO QID 30 Days Qty: 120 1RF (DME) walker Misc See Rx Instructions .Route Qty: 1 0RF Rx Instructions: As directed dextrose [Glucose Gel] 40 % gel 10 g PO Q15M PRN (Reason: hypoglycemia) Qty: 300 0RF Rx Instructions: until symptoms of low blood sugar are controlled glucagon HCl [Glucagon (HCl) Emergency Kit] 1 mg recon soln 1 mg subcut Q20M PRN (Reason: hypoglycemia) Qty: 1 0RF Rx Instructions: until target blood sugar attained Stiolto Respimat 2.5-2.5 mcg/actuation mist 2 puff inhalation DAILY naloxone [Narcan] 4 mg/actuation spray,non-aerosol 4 mg intranasal Q2M PRN (Reason: opioid overdose) Qty: 2 0RF Rx Instructions: spray 1 dose into ONE nostril; alternate nostrils w each dose until help arrives insulin glargine [Lantus Solostar U-100 Insulin] 100 unit/mL (3 mL) insulin pen 16 unit subcut BEDTIME quetiapine 50 mg tablet 50 mg PO BID topiramate 25 mg tablet 50 mg PO BID Rx Instructions: take one tab twice daily for one week, then increase to 2 tabs twice daily sertraline 100 mg tablet 100 mg PO BID ipratropium-albuterol 0.5 mg-3 mg(2.5 mg base)/3 mL solution for nebulization 3 ml INHALATION QID PRN (Reason: Shortness Of Breath Or Wheezing) furosemide 20 mg tablet 40 mg PO DAILY Discharge Orders: Discharge Order (Routine); Ordered 01/14/25 Ordered By: Pierre Agustin Diet: Advance to usual diet Activity on Discharge: As tolerated Stand Alone Forms: Patient Portal Discharge page Print Language: Palestinian Care Plan Goals: recovery Health Concerns: asthma/copd Plan of Treatment: 10 day prednisone course avoid triggers such as crack cocaine and house allergens Assessment: see above
--- NOTE | 2025-01-14 10:20 | MHC.CM.PN ---
Addendum entered by Myriam Earl 01/14/25 10:38: PT WILL RESUME SERVICES WITH [facility] DUTTA, KRISTAN DUTTA UPDATED ON TODAY'S DC. PT WILL DC TO DAUGHTER'S ADDRESS AT [address] [place] [address] Original Note: DP: PT HAS BEEN MEDICALLY CLEARED FOR DC HOME, NO SERVICES. BLS TRANSPORT BOOKED FOR 12 NOON VIA [employer].
[2025-01-14 10:21] VITALS: RESP 18
[2025-01-14 11:14] LABS: Glucose, Whole Blood 227 mg/dL (60-115)
[2025-01-14 11:53] VITALS: PULSE 78; RESP 19; O2SAT 94
[2025-01-14 12:11] VITALS: BP 103/65; PULSE 96; RESP 18; TEMP 36.4; O2SAT 100
== END 2025-01-14 12:16 | disposition home or self-care (01) | DRG 140 ==
LOC: HO.ED 13:14 → HO.EDOVER 13:35 → HO.S3 01-13
PROVIDERS: Emergency Medicine; Student in an Organized Health Care Education/Training Program; Admitting Provider Internal Medicine; Emergency Provider Emergency Medicine; PCP Nurse Practitioner Family; Visit Provider Internal Medicine
DX: J44.1 Chronic obstructive pulmonary disease with (acute) exacerbation (principal); J45.51 Severe persistent asthma with (acute) exacerbation; I50.22 Chronic systolic (congestive) heart failure; J96.11 Chronic respiratory failure with hypoxia; Z99.81 Dependence on supplemental oxygen; F14.90 Cocaine use, unspecified, uncomplicated; E11.9 Type 2 diabetes mellitus without complications; E78.5 Hyperlipidemia, unspecified; G47.33 Obstructive sleep apnea (adult) (pediatric); Z91.199 Patient's noncompliance with other medical treatment and regimen due to unspecified reason; Z79.4 Long term (current) use of insulin; Z79.82 Long term (current) use of aspirin; Z79.84 Long term (current) use of oral hypoglycemic drugs; Z79.899 Other long term (current) drug therapy
CPT/HCPCS: 36415; 71045; 80048; 80053; 82803; 82947; 83735; 84484; 85025; 85027; 86140; 93005; 94660; 99285; J0131; J1650; J2270; J2919; J3475; J7120

== ENCOUNTER → 2025-01-12 05:38 | Outpatient (BNV) | payer OTHER, SELFPAY | PROVIDERS: Emergency Provider Emergency Medicine; Visit Provider Internal Medicine | DX: J44.1 Chronic obstructive pulmonary disease with (acute) exacerbation (principal); J96.21 Acute and chronic respiratory failure with hypoxia; F14.90 Cocaine use, unspecified, uncomplicated | CPT/HCPCS: 99223; 99232; 99239 ==

== ENCOUNTER 2025-01-24 23:15 | Inpatient (IN) | payer OTHER, SELFPAY ==
--- NOTE | ~2025-01-24 | XR_ITS ---
CLINICAL HISTORY: sob 1 view chest x-ray Comparison: CR - XR CHEST 1V - 01/12/25 05:33 EDT Findings: Central vascular prominence with diffuse interstitial opacities. No significant pleural effusion or pneumothorax. Similar prominent/enlarged cardiac silhouette. Chronic appearing b left-sided rib fractures. Probable calcific tendinitis left supraspinatus IMPRESSION: Possible pulmonary edema. This document has been electronically signed by: Aubrey Doss MD on 01/24/2025 23:47:40
[2025-01-24 23:19] VITALS: BP 142/78; PULSE 78; O2SAT 97
--- NOTE | 2025-01-24 23:21 | ECG_ITS ---
Test Reason : SOB Blood Pressure : */* mmHG Vent. Rate : 95 BPM Atrial Rate : 95 BPM P-R Int : 120 ms QRS Dur : 96 ms QT Int : 374 ms P-R-T Axes : 48 149 69 degrees QTcB Int : 469 ms Sinus rhythm with Premature atrial complexes Right axis deviation Possible Right ventricular hypertrophy Abnormal ECG When compared with ECG of 12-Jan-2025 05:02, No significant changes seen Referred By: Ly Bazan Electronically Signed By: PAUL VARGAS MD
[2025-01-24 23:22] VITALS: BP 127/55; PULSE 94; RESP 19; TEMP 36.7; O2SAT 96; BMI 36.6
--- NOTE | 2025-01-24 23:30 | ED_ITS ---
HPI - SOB/Dyspnea General Chief Complaint: Dyspnea Stated Complaint: diff breathing O2 96% Time Seen by Provider: 01/24/25 23:20 Source: patient and EMS Mode of arrival: EMS Limitations: no limitations History of Present Illness ED Provider: Dr. Ly Bazan HPI Narrative: Patient comes to the emergency room complaining of shortness of breath. According to the patient for the last couple of days she has been having wheezing and difficulty breathing despite using nebulizations at home. Patient called 911, they gave her a neb treatment. Patient states she feels better but still significantly short of breath. Patient uses 2 L of oxygen at home. Patient states that she has been cleaned for 12 days, has not snorted cocaine. Related Data Home Medications ?Medication ?Instructions ?Recorded ?Confirmed tiotropium 2.5 mcg-olodaterol 2.5 2 puff inhalation DA PHIL 11/26/24 01/12/25 mcg/actuation mist for inhalation (Stiolto Respimat) insulin glargine 100 unit/mL (3 16 unit subcut BEDTIME 12/01/24 01/12/25 mL) subcutaneous pen (Lantus Solostar U-100 Insulin) quetiapine 50 mg tablet 50 mg PO BID 12/18/24 topiramate 25 mg tablet 50 mg PO BID 12/18/24 furosemide 20 mg tablet 40 mg PO DAILY 01/09/2512/29 ipratropium 0.5 mg-albuterol 3 mg 3 ml inhalation QID PRN Shortness 01/09/25 01/12/25 (2.5 mg base)/3 mL nebulization Of Breath Or Wheezing soln sertraline 100 mg tablet 100 mg PO BID 01/12/2501/12 Previous Rx's ?Medication ?Instructions ?Recorded walker #1 ea 07/14/24 Rollator walker #1 ea 09/16/24 cane #1 ea 09/16/24 pulse oximeter #1 ea 09/16/24 FreeStyle Jemima 3 [place] #1 ea 09/22/24 (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,stallion keeper,cont) albuterol sulfate 2.5 mg/3 mL 2.5 mg (3 mL) inhalation Q4H PRN 11/09/24 (0.083 %) solution for nebulization Shortness Of Breat h/Wheezing #180 mL albuterol sulfate 90 mcg/actuation 2 puff inhalation Q 6H PRN for 11/09/24 aerosol inhaler (Ventolin HFA) wheezing #1 ea theophylline 400 mg 400 mg PO BID 90 days #180 t abs 11/09/24 tablet,extended release 24 hr acetaminophen 650 mg 650 mg PO Q12H PRN pain 30 d ays 11/12/24 tablet,extended release #60 tabs aspirin 81 mg tablet,delayed 81 mg PO DAILY 90 days #9 0 tabs 11/12/24 release atorvastatin 40 mg tablet 40 mg PO BEDTIME #90 tabs blood sugar diagnostic (FreeStyle #100 ea 11/12/24 Lite Strips) 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 meter (FreeStyle #1 ea 11/12/24 Lite Meter kit) calcium 500 mg (as 1 tab PO DAILY #90 tabs 10/29 11/22 carbonate)-vitamin D3 10 mcg (400 unit) tablet esomeprazole magnesium 40 mg 40 mg PO DAILY@0630 #90 c aps 11/12/24 capsule,delayed release fexofenadine 180 mg tablet 180 mg PO DAILY #30 tabs (Elisabeth Allergy) glucose 4 gram chewable tablet 16 g (4 x 4 gram) PO Q1 5M PRN 11/12/24 hypoglycemia #100 tabs ibuprofen 800 mg tablet 800 mg PO BID PRN Headache 3 0 days 11/12/24 #60 tabs lancets 28 gauge (FreeStyle #100 ea 11/12/24 Lancets) losartan 50 mg tablet 50 mg PO DAILY #90 tabs 10/29 11/22 dextrose 40 % oral gel (Glucose 10 g PO Q15M PRN hypog lycemia #300 11/13/24 Gel) grams glucagon HCl 1 mg solution for 1 mg subcut Q20M PRN hy poglycemia 11/13/24 injection (Glucagon (HCl) #1 ea Emergency Kit) FreeStyle Jemima 3 Plus Sensor #2 ea 11/17/24 (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 sensor) naloxone 4 mg/actuation nasal 4 mg intranasal Q2M PRN opioid 11/27/24 spray (Narcan) overdose #2 ea pen needle, diabetic 31 gauge x #100 ea 11/30/2411/13 gabapentin 800 mg tablet 800 mg PO QID Pain 30 days # 120 12/22/24 tabs guaifenesin 100 mg/5 mL oral liquid 100 mg (5 mL) PO Q 4H PRN Cough 01/14/25 #1,000 mL prednisone 20 mg tablet 40 mg (2 x 20 mg) PO DAILY # 15 tabs 01/14/25 tizanidine 4 mg tablet 4 mg PO Q12H muscle spasm 30 days 01/22/25 #60 tabs Allergies Allergy/AdvReac Type Severity Reaction Status Date / Time doxycycline Allergy Severe Swelling Verified 01/24/25 23:32 varenicline (From CHANTIX) Allergy Severe ANAPHYLAXIS Verified 01/24/25 23:32 azithromycin Allergy Intermediate Rash Verified 01/24/25 23:32 barium sulfate Allergy Intermediate angioedema Verified 01/24/25 23:32 cetirizine Allergy Mild Rash Verified 01/24/25 23:32 famotidine Allergy Mild Rash Verified 01/24/25 23:32 linaclotide (Linzess) Allergy Mild Rash Verified 01/24/25 23:32 Review of Systems 2 Review of Systems: Constitutional : No Weight loss, No Fever, No Chills, No Night Sweats, No Fatigue, No Malaise ENT/Mouth : No Hearing loss, No Ear Pain, No Nasal Congestion, No Sinus Pain, No Hoarseness, No sore throat, No Rhinorrhea, No Swallowing Difficulty Eyes: No Eye Pain, No Swelling, No Redness, No Foreign Body, No Discharge, No Vision Changes Cardiovascular : No Chest Pain, complaining of dyspnea on exertion and at rest with wheezing, no orthopnea, no lower extremity edema Respiratory : Complaining of cough, wheezing, shortness of breath Gastrointestinal : No Nausea, No Vomiting, No Diarrhea, No Constipation, No abdominal Pain, No Hematochezia, No Melena Genitourinary : no irregular bleeding, No Dysuria, No Urinary Frequency, No Hematuria, No Urinary Incontinence, No Urgency, No Flank Pain, No Urinary Flow Changes, No Hesitancy Musculoskeletal : No joint pain, No Myalgias, No Joint Swelling Skin : No Skin Lesions, No rash Neuro : No Weakness, No Numbness, No Paresthesias, No Loss of Consciousness, No Dizziness, No Headache Psych : No Anxiety/Panic, No Depression, No SI/HI/AH/VH, No Social Issues, Heme/Lymph: No Bruising, No Bleeding,No Lymphadenopathy Endocrine : No Polyuria, No Polydipsia, No Temperature Intolerance [facility] Past Medical History Medical History Chronic lung disease Chronic lung disease BAHMAN (generalized anxiety disorder) COPD (chronic obstructive pulmonary disease) Cocaine use disorder Cocaine abuse GERD (gastroesophageal reflux disease) Constipation Non-insulin dependent type 2 diabetes mellitus HENRY (obstructive sleep apnea) Acute exacerbation of chronic obstructive airways disease Asthma with exacerbation Obesity hypoventilation syndrome Chronic lung disease Hypoxic respiratory failure Nocturnal hypoxemia Diabetes mellitus COPD exacerbation Crack cocaine use Hyperkalemia Metabolic acidosis Leukocytosis Chest discomfort Chronic renal failure, stage 2 (mild) SOB (shortness of breath) Asthma Smoker Rotator cuff tendonitis GERD (gastroesophageal reflux disease) Chronic idiopathic constipation Bustos's esophagus Depression High triglycerides Gastroparesis Carpal tunnel syndrome of right wrist Nausea & vomiting Hernia Acute and chronic respiratory failure, unspecified whether with hypoxia or hypercapnia HTN (hypertension) Obesity (BMI 30-39.9) Knee pain, bilateral Surgical History History of cholecystectomy (~1988) History of carpal tunnel release Hx of tubal ligation History of pubovaginal sling (~2015) History of umbilical hernia repair (~2001) Hx of section History of open reduction and internal fixation (ORIF) procedure History of esophagogastroduodenoscopy (EGD) Family History Family History Father Heart disease HENRY (obstructive sleep apnea) Family history of breast cancer Mother Asthma Emphysema, unspecified Bronchitis Smoker Alcoholism Bone marrow disease Maternal Grandmother Diabetes Social History Social History Household Members: Other Household Members Other:: sister Housing: Unknown / Unable to assess Housing Other:: 3 family house Are you a primary director of primary care to a significant other at home: No Unable to assess alcohol history related to: Unknown Alcohol intake: never Comment: refusing socks Patient Tobacco Use Status: Tobacco use Unknown Tobacco use type: Cigarette Cigarette Packs Per Day: 0.5 Cigarettes Per Day: 10.0 Years Smoked: 40 e-Cigarette/Vaping Use: Currently Using Second Hand Smoke Exposure: Yes Substance Use Type: Crack/Cocaine Advance Directives: Yes Advance Directives on File: Yes Advance Directives Date on File: 12/19/23 service: No Current occupational status: disabled 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 Physical Exam 2 Exam: Exam: Appearance: Alert. Oriented X3. No acute distress. Eyes: Pupils equal, round and reactive to light. ENT: Pharynx normal. Neck: Normal inspection. Neck supple. No lymph nodes noted. No crepitus CVS: Normal heart rate and rhythm. Pulses normal. Normal S1 and S2 Respiratory: Decreased breath sounds bilaterally, wheezing, no rales or crackles Abdomen: Soft and nontender. No rigidity. No distention. Skin: Skin warm and dry. Normal skin color. Normal skin turgor. Extremities: No lower extremity edema. No Lacerations. No Rash Neuro: Oriented X 3. No motor deficit. No sensory deficit. Moving all extremities. No slurred speech. CN 2 through 12 grossly intact Psych: calm, cooperative, normal affect Vital Signs: Vital Signs: Last Vital Signs Temp 98.1 F 01/24/25 23:22 Pulse 94 01/24/25 23:22 Resp 20 01/24/25 23:57 BP 127/55 L 01/24/25 23:22 Pulse Ox 96 01/24/25 23:22 O2 Del Method Nasal Cannula 01/24/25 23:22 Oxygen Flow Rate 2 01/24/25 23:22 BMI result Body Mass Index 36.6 Course Course Course Narrative: Patient known to the ED, patient has multiple chronic lung disease exacerbations. Patient receiving IV fluids based on ideal weight of 45 kg, levofloxacin, Solu- Medrol, magnesium and nebulization treatments All of patient's labs and imaging pending. Medications Administered Generic Name Dose Route Start Last Admin Trade Name Freq PRN Reason Stop Dose Admin Levofloxacin 500 mg in 100 mls @ 100 mls/hr 01/24/25 23:00 01/25/25 00:20 Levaquin IV 100 mls/hr Q24H [place] Administration Discontinued Medications Generic Name Dose Route Start Last Admin Trade Name Freq PRN Reason Stop Dose Admin Albuterol Sulfate 5 mg/ 0 mg 01/24/25 23:44 01/24/25 23:54 Albuterol/Ipratropium 3 ml INHALE 01/24/25 23:45 1 each ONCE ONE Administration Magnesium Sulfate 2 gm in 50 mls @ 25 mls/hr 01/24/25 23:25 01/24/25 23:38 Magnesium Sulfate/H2o IV 01/25/25 01:24 25 mls/hr ONCE ONE Administration Sodium Chloride 1,500 mls @ 999 mls/hr 01/24/25 23:25 01/24/25 23:59 Ns IVCONT 01/25/25 00:55 999 mls/hr .Q1H31M ONE Administration Methylprednisolone Sodium Succinate 125 mg 01/24/25 23:25 01/24/25 23:38 Methylprednisolone Sod Succ 125 Mg/2 Ml Vial IVPUSH 01/24/25 23:26 125 mg ONCE ONE Administration Medical Decision Making Medical Decision Making [facility] Narrative: My interpretation of EKG: Sinus rhythm, heart rate 95, no ST segment depression or elevation, no T-wave inversion, QTC 496 My interpretation of labs: No significant abnormality in patient's hematology or chemistry., chemistry shows possible pulmonary edema. To patient's knowledge, she does not have CHF. Patient was treated with IV fluids, levofloxacin. Sepsis not suspected. Patient known to be noncompliant with her BiPAP. Patient is on BiPAP now, which she uses at bedtime I discussed the above-mentioned with Dr. West from the Medicine team, patient being admitted Differential Diagnosis Differential Diagnoses: The differential diagnosis associated with the presentation includes (Chronic lung disease, CHF, pneumonia) Admission/Observation Consideration of admission/observation: Escalation of care including admission/observation considered Consult Healthcare Provider Management of the patient was discussed with: Hospitalist Lab Data [facility] Lab Attestation statement: I reviewed the patient's lab results. 01/24/25 23:57 01/24/25 23:57 Labs: Lab Results 01/24/25 01/25/25 Range/Units 23:57 00:06 WBC 14.9 H (4.8-10.8) X10*3/uL RBC 4.26 (4.20-5.50) X10*6/uL Hgb 8.6 L (12.0-16.0) g/dl Hct 30.4 L (37.0-47.0) % MCV 71.4 L (80.0-98.0) fL MCH 20.2 L (27.0-33.0) pg MCHC 28.3 L (31.0-35.0) g/dl RDW 17.8 H (11.0-16.0) % Plt Count 460 H D (160-400) X10*3/uL MPV 9.0 L (9.4-12.3) fL Immature Gran % (Auto) 0.5 H (0.0-0.4) % Neut % (Auto) 72.5 (45-73) % Lymph % (Auto) 21.0 (20-40) % [place] % (Auto) 5.3 (2-11) % Eos % (Auto) 0.5 (0-4) % Baso % (Auto) 0.2 (0-2) % Lymph # (Auto) 3.1 (1.2-4.9) X10*3/uL [place] # (Auto) 0.8 (0.1-1.2) X10*3/uL Eos # (Auto) 0.1 (0.0-0.4) X10*3/uL Baso # (Auto) 0.0 (0.0-0.2) X10*3/uL Abs Immat Gran (auto) 0.07 H (0.00-0.03) X10*3/uL Absolute Neuts (auto) 10.8 H (2.0-8.3) x10*3/uL Absolute Nucleated RBC 0.000 (0.0-0.012) X10*3/uL Nucleated RBC % (auto) 0.0 (0.0-0.2) /100WBC VBG pH 7.36 (7.32-7.43) VBG pCO2 54 mmHg VBG pO2 72 mmHg VBG HCO3 31 H (22-26) mmol/L VBG O2 Saturation 93.0 % VBG Base Excess 4.9 mmol/L Sodium 143 (135-145) mmol/L Potassium 3.8 (3.3-5.1) mmol/L Chloride 107 (96-108) mmol/L Carbon Dioxide 27 (22-29) mmol/L Anion Gap 13 (12-20) BUN 16 (9-16) mg/dL Creatinine 0.74 (0.5-1.4) mg/dL Estim Creat Clear Calc 78.7 Estimated GFR > 60 Random Glucose 115 (60-115) mg/dL Lactic Acid 1.4 (0.5-2.0) mmol/L Calcium 9.1 (8.4-10.2) mg/dL Total Bilirubin 0.1 (0.0-1.0) mg/dL Direct Bilirubin < 0.2 (0.0-0.5) mg/dL AST 12 (5-31) U/L ALT 19 (0-31) U/L Alkaline Phosphatase 101 (39-117) U/L Troponin I High Sens 22.4 H (<3.5-17.0) ng/L B-Natriuretic Peptide 116 H (<100) pg/mL Total Protein 6.5 (6.5-8.0) g/dL Albumin 3.8 (3.5-5.0) g/dL Influenza Type A (PCR) NEGATIVE (Negative) Influenza Type B (PCR) NEGATIVE (Negative) RSV RNA Qual (PCR) NEGATIVE (Negative) SARS-CoV-2 RNA (RT-PCR) NEGATIVE (Negative) Independent Interpretation I performed an independent interpretation of an: EKG and Plain X-Ray Radiology Impression Discussion of test interpretation with radiology: I have reviewed the radiologist's reading. Radiologist Impression: Right basilar opacity concerning for pneumonia. Trace right pleural effusion. No pneumothorax. Heart size is normal. No acute fracture. Critical Care Time Critical Care Time Critical Care Time: Yes Total Critical Care Time: 60 Attestation: I have personally provided critical care time. Time includes review of lab data, radiology results, discussion with consultants, and monitoring for potential decompensation. Intervention performed as documented. Discharge Plan Discharge Clinical Impression: Chronic lung disease Patient Disposition: Admitted As Inpatient Print Language: Mauritanian
[2025-01-24] MEDS: Magnesium Sulfate/H2O 2 GM/50 ML PIGGYBACK IV (23:38)
[2025-01-24] MEDS: Albuterol Sulfate 5 MG, Albuterol/Iprat 2.5/0.5MG 3 ML 3 ML INHALE (23:54)
[2025-01-24 23:57] VITALS: PULSE 92; RESP 20; O2SAT 97
[2025-01-25] VITALS (14 sets, daily range): BP systolic 108–186; BP diastolic 62–84; PULSE 68–99; RESP 16–20; TEMP 36.4–37.2; O2SAT 91–100; BMI 35.2
[2025-01-25 00:06] LABS: MANUAL DIFF FLAG NO
[2025-01-25 00:08] LABS: Venous Blood Gas Refer to POC result
[2025-01-25 00:11] LABS: VBG HCO3 31 mmol/L (22-26); VBG O2 % Saturation 93.0 %
[2025-01-25 00:11] LABS: Hematocrit 30.4 % (37.0-47.0); Hemoglobin 8.6 g/dl (12.0-16.0); Imm Gran Abs Auto 0.07 X10*3/uL (0.00-0.03); Imm Gran Pct Auto 0.5 % (0.0-0.4); Lymphocytes Absolute Auto 3.1 X10*3/uL (1.2-4.9); Mean Corpuscular HGB Conc 28.3 g/dl (31.0-35.0); Mean Corpuscular Hemoglobin 20.2 pg (27.0-33.0); Mean Corpuscular Volume 71.4 fL (80.0-98.0); NRBC Abs Auto 0.000 X10*3/uL (0.0-0.012); NRBC Pct Auto 0.0 /100WBC (0.0-0.2); Platelet Count 460 X10*3/uL (160-400); Red Blood Count 4.26 X10*6/uL (4.20-5.50); White Blood Count 14.9 X10*3/uL (4.8-10.8)
--- NOTE | 2025-01-25 00:15 | PC.NURSE ---
ABX delayed due to Pt being a difficult stick.
[2025-01-25 00:21] LABS: Alanine Aminotransferase 19 U/L (0-31); Albumin Level 3.8 g/dL (3.5-5.0); Alkaline Phosphatase 101 U/L (39-117); Anion Gap 13 (12-20); Aspartate Amino Transferase 12 U/L (5-31); Blood Urea Nitrogen 16 mg/dL (9-16); Calcium 9.1 mg/dL (8.4-10.2); Carbon Dioxide 27 mmol/L (22-29); Chloride 107 mmol/L (96-108); Creatinine Clr Calc Pharmacy 78.7; Estimated Glomerular Filt Rate > 60; Potassium 3.8 mmol/L (3.3-5.1); Sodium 143 mmol/L (135-145); Total Protein 6.5 g/dL (6.5-8.0)
[2025-01-25 00:26] LABS: B Type Natriuretic Peptide 116 pg/mL (<100); Troponin-I High Sensitivity 22.4 ng/L (<3.5-17.0)
[2025-01-25 00:47] LABS: Resp Syncy Virus RNA Qual PCR NEGATIVE (Negative); SARS COV2 PCR INHOUSE NEGATIVE (Negative)
--- NOTE | 2025-01-25 02:17 | PM.IMHP ---
History of Present Illness Date of Service: 01/25/25 Attending physician on admission: Joe Austin Chief Complaint: Shortness on breath Marika Scott is a 54 years old woman with past medical history significant for obesity hypoventilatory syndrome, chronic respiratory failure with hypoxia and hypercapnia in 2-3 L/min supplemental oxygen at home, HENRY BiPAP bedtime, COPD, HFrEF (TTE September 2024 EF 40-45%), type 2 diabetes mellitus on insulin, hypertension, substance use disorder (cocaine), ongoing tobacco smoking and obesity was brought to the ED via EMS due to 2 days' history of shortness on breath, chest pain, wheezing and cough. HPI was limited as the patient was receiving ventilation via BiPAP mask. Patient has had multiple hospitalizations secondary to respiratory failure. Last time she used cocaine was 12 days ago. She does still smoking tobacco 1 pack per day. Patient received breathing treatment by EMS. In the ED, she was found to have stable vital signs. She is currently on BiPAP. Blood workup showed leukocytosis of 14.9. Hemoglobin is 8.6 platelets 460. There are no significant electrolyte imbalances. Renal function and LFTs are normal. Troponin is 22.4 and BNP is elevated at 115. CXR showed possible pulmonary edema. ECG showed sinus rhythm with PACs HR 95 beats per minute and no ischemic changes. ED tx: Solu-Medrol 125 mg IV, magnesium 2 g IV, NS 1.5 L bolus albuterol/ipratropium 5 mg/3 mL Review of Systems Review of Systems: limited - using BiPAP [facility] Medical History Chronic lung disease Chronic lung disease BAHMAN (generalized anxiety disorder) COPD (chronic obstructive pulmonary disease) Cocaine use disorder Cocaine abuse GERD (gastroesophageal reflux disease) Constipation Non-insulin dependent type 2 diabetes mellitus HENRY (obstructive sleep apnea) Acute exacerbation of chronic obstructive airways disease Asthma with exacerbation Obesity hypoventilation syndrome Chronic lung disease Hypoxic respiratory failure Nocturnal hypoxemia Diabetes mellitus COPD exacerbation Crack cocaine use Hyperkalemia Metabolic acidosis Leukocytosis Chest discomfort Chronic renal failure, stage 2 (mild) SOB (shortness of breath) Asthma Smoker Rotator cuff tendonitis GERD (gastroesophageal reflux disease) Chronic idiopathic constipation Bustos's esophagus Depression High triglycerides Gastroparesis Carpal tunnel syndrome of right wrist Nausea & vomiting Hernia Acute and chronic respiratory failure, unspecified whether with hypoxia or hypercapnia HTN (hypertension) Obesity (BMI 30-39.9) Knee pain, bilateral Family History Father Heart disease HENRY (obstructive sleep apnea) Family history of breast cancer Mother Asthma Emphysema, unspecified Bronchitis Smoker Alcoholism Bone marrow disease Maternal Grandmother Diabetes Surgical History History of cholecystectomy (~1988) History of carpal tunnel release Hx of tubal ligation History of pubovaginal sling (~2015) History of umbilical hernia repair (~2001) Hx of section History of open reduction and internal fixation (ORIF) procedure History of esophagogastroduodenoscopy (EGD) Social History Household Members: Other Household Members Other:: sister Housing: Unknown / Unable to assess Housing Other:: 3 family house Are you a primary wound care nurse to a significant other at home: No Unable to assess alcohol history related to: Unknown Alcohol intake: never Comment: refusing socks Patient Tobacco Use Status: Tobacco use Unknown Tobacco use type: Cigarette Cigarette Packs Per Day: 0.5 Cigarettes Per Day: 10.0 Years Smoked: 40 e-Cigarette/Vaping Use: Currently Using Second Hand Smoke Exposure: Yes Substance Use Type: Crack/Cocaine Advance Directives: Yes Advance Directives on File: Yes Advance Directives Date on File: 12/19/23 service: No Current occupational status: disabled 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 Meds Allergies Allergy/AdvReac Type Severity Reaction Status Date / Time doxycycline Allergy Severe Swelling Verified 01/24/25 23:32 varenicline (From CHANTIX) Allergy Severe ANAPHYLAXIS Verified 01/24/25 23:32 azithromycin Allergy Intermediate Rash Verified 01/24/25 23:32 barium sulfate Allergy Intermediate angioedema Verified 01/24/25 23:32 cetirizine Allergy Mild Rash Verified 01/24/25 23:32 famotidine Allergy Mild Rash Verified 01/24/25 23:32 linaclotide (Linzess) Allergy Mild Rash Verified 01/24/25 23:32 Active Medications: Current Medications Acetaminophen (Acetaminophen 325 Mg Tablet) 975 mg PO Q6H PRN PRN Reason: Pain, Mild 1-3,fever,headache Albuterol Sulfate (Albuterol Sulfate (0.083%) 2.5 Mg/3 Ml Vial.Neb) 2.5 mg INHALE Q2H PRN PRN Reason: Shortness of Breath/Wheezing Albuterol/Ipratropium (Albuterol/Iprat 2.5/0.5mg 3 Ml Ampul.Neb) 3 ml INHALE RQ4H WHILE AWAKE [place] Calcium Carbonate (Calcium Carbonate 750 Mg Tab.Chew) 750 mg PO Q4H PRN PRN Reason: Heartburn Enoxaparin Sodium (Enoxaparin Sodium 40 Mg/0.4 Ml Syringe) 40 mg SUBCUT Q24H [place] Levofloxacin (Levaquin) 500 mg in 100 mls @ 100 mls/hr IV Q24H [facility] Last Admin: 01/25/25 00:20 Dose: 100 mls/hr Magnesium Hydroxide (Milk Of Magnesia 30 Ml Oral.Susp) 30 ml PO DAILY PRN PRN Reason: Constipation Methylprednisolone Sodium Succinate (Methylprednisolone Sod Succ 40 Mg/Ml Vial) 40 mg IVPUSH Q12H [facility] Sodium Chloride (0.9 % Sodium Chloride Flush 3 Ml Syringe) 3 ml IVFLUSH QSHIFT [facility] Home Medications ?Medication ?Instructions ?Recorded ?Confirmed ?Last Taken ?Type tiotropium 2.5 mcg-olodaterol 2.5 2 puff inhalation DAILY 11/26/24 01/12/25 01/12/25 History mcg/actuation mist for inhalation (Stiolto Respimat) insulin glargine 100 unit/mL (3 16 unit subcut BEDTIME 12/01/24 01/12/25 01/12/25 History mL) subcutaneous pen (Lantus Solostar U-100 Insulin) quetiapine 50 mg tablet 50 mg PO BID 12/18/24 01/12/25 01/12/25 History topiramate 25 mg tablet 50 mg PO BID 12/18/24 01/12/25 01/12/25 History furosemide 20 mg tablet 40 mg PO DAILY 01/09/25 01/12/25 01/12/25 History ipratropium 0.5 mg-albuterol 3 mg 3 ml inhalation QID PRN Shortness 01/09/25 01/12/25 Unknown History (2.5 mg base)/3 mL nebulization Of Breath Or Wheezing soln sertraline 100 mg tablet 100 mg PO BID 01/12/25 01/12/25 01/12/25 History Physical Exam Vital Signs and Narrative: Vital Signs: Last Vital Signs Temp 98.1 F 01/24/25 23:22 Pulse 94 01/24/25 23:22 Resp 20 01/24/25 23:57 BP 127/55 L 01/24/25 23:22 Pulse Ox 96 01/24/25 23:22 O2 Del Method Nasal Cannula 01/24/25 23:22 Oxygen Flow Rate 2 01/24/25 23:22 BMI result Body Mass Index 36.6 Constitutional - Awake and Alert, No apparent distress. Obese. HEENT - PER, EOMI Heart - RRR, No murmurs. Lungs - Normal lung expansion, Normal respiratory effort, No respiratory distress. Tachypnea. End-expiratory wheezing Abdomen - NT / ND; +BS; No rebound or guarding Extremities - no calf tenderness bilaterally, no swelling Musculoskeletal - Normal inspection, normal ROM Skin - Warm/Dry Neurological - Alert & oriented x3. Moving all extremities spontaneously. No facial droop. Normal speech. Psychological - Appropriate affect Results Labs 01/24/25 23:57 01/24/25 23:57 Labs: Laboratory Results - last 24 hr 01/24/25 01/25/25 23:57 00:06 MCV 71.4 L MCH 20.2 L MCHC 28.3 L RDW 17.8 H Plt Count 460 H D MPV 9.0 L Immature Gran % (Auto) 0.5 H Neut % (Auto) 72.5 Lymph % (Auto) 21.0 [place] % (Auto) 5.3 Eos % (Auto) 0.5 Baso % (Auto) 0.2 Lymph # (Auto) 3.1 [place] # (Auto) 0.8 Eos # (Auto) 0.1 Baso # (Auto) 0.0 Abs Immat Gran (auto) 0.07 H Absolute Neuts (auto) 10.8 H Absolute Nucleated RBC 0.000 Nucleated RBC % (auto) 0.0 VBG pH 7.36 VBG pCO2 54 VBG pO2 72 VBG HCO3 31 H VBG O2 Saturation 93.0 VBG Base Excess 4.9 Anion Gap 13 Estim Creat Clear Calc 78.7 Estimated GFR > 60 Random Glucose 115 Lactic Acid 1.4 Calcium 9.1 Total Bilirubin 0.1 Direct Bilirubin < 0.2 AST 12 ALT 19 Alkaline Phosphatase 101 B-Natriuretic Peptide 116 H Total Protein 6.5 Albumin 3.8 Influenza Type A (PCR) NEGATIVE Influenza Type B (PCR) NEGATIVE RSV RNA Qual (PCR) NEGATIVE SARS-CoV-2 RNA (RT-PCR) NEGATIVE Assessment and Plan (1) Acute exacerbation of chronic obstructive pulmonary disease: Status: Acute (2) Acute and chronic respiratory failure, unspecified whether with hypoxia or hypercapnia: Qualifiers: Respiratory failure complication: hypoxia and hypercapnia Qualified Code(s): J96.21 - Acute and chronic respiratory failure with hypoxia; J96.22 - Acute and chronic respiratory failure with hypercapnia Status: Inactive Plan Marika Scott is a 54 y/o woman with PMHx significant for obesity hypoventilatory syndrome admitted for management of: Acute on chronic respiratory hypoxia and hypercapnia respiratory failure secondary to acute exacerbation of COPD and component of acute on chronic systolic congestive heart failure. Telemetry. Pulse oximetry. Supplemental O2 to keep O2 sats > 90%. Continue bronchodilator therapy, IV steroids and IV diuresis. Continue tube feeding. Nocturnal BiPAP. Patient advised to quit smoking tobacco. Type 2 diabetes mellitus. BG checks before meals at bedtime. Lantus, insulin sliding scale and glipizide. Diabetic diet. Hyperlipidemia. Continue atorvastatin. Essential hypertension. Continue losartan. Mood disorder. Continue Seroquel, sertraline, topiramate. GERD. Continue PPI. Tobacco dependence. Tobacco cessation education. Obesity. BMI 36.6 kg/m2. Weight loss. DVT prophylaxis: Lovenox Code status: Full Med rec pending Patient will need hospitalization for at least 2 midnights for acute respiratory failure treatment with IV steroids, IV diuretics and bronchodilator therapy. Quality Stroke Does the patient have a stroke diagnosis?: No VTE Prior VTE?: No VTE Risk Level:: Medical - moderate - high VTE Device Contraindication: Treatment Not Indicated VTE Drug Contraindication: N/A - Med Ordered
[2025-01-25] MEDS: Furosemide 20 MG/2 ML VIAL IVPUSH ×3 (02:44→17:54)
[2025-01-25 02:59] LABS: Cannabinoid Screen Urine Not Detected (Not Detect)
[2025-01-25 06:51] LABS: Hematocrit 33.3 % (37.0-47.0); Hemoglobin 9.0 g/dl (12.0-16.0); Imm Gran Abs Auto 0.09 X10*3/uL (0.00-0.03); Imm Gran Pct Auto 0.6 % (0.0-0.4); Lymphocytes Absolute Auto 0.5 X10*3/uL (1.2-4.9); MANUAL DIFF FLAG SCAN; Mean Corpuscular HGB Conc 27.0 g/dl (31.0-35.0); Mean Corpuscular Hemoglobin 19.7 pg (27.0-33.0); Mean Corpuscular Volume 72.9 fL (80.0-98.0); NRBC Abs Auto 0.000 X10*3/uL (0.0-0.012); NRBC Pct Auto 0.0 /100WBC (0.0-0.2); Platelet Count 485 X10*3/uL (160-400); Red Blood Count 4.57 X10*6/uL (4.20-5.50); SCAN SMEAR FLAG 1; White Blood Count 15.5 X10*3/uL (4.8-10.8)
[2025-01-25 07:17] LABS: Anion Gap 12 (12-20); Blood Urea Nitrogen 14 mg/dL (9-16); Calcium 8.7 mg/dL (8.4-10.2); Carbon Dioxide 27 mmol/L (22-29); Chloride 106 mmol/L (96-108); Creatinine Clr Calc Pharmacy 75.7; Estimated Glomerular Filt Rate > 60; Magnesium 2.1 mg/dL (1.6-2.6); Potassium 4.4 mmol/L (3.3-5.1); Sodium 141 mmol/L (135-145)
[2025-01-25] MEDS: 0.9 % Sodium Chloride Flush 3 ML SYRINGE IVFLUSH ×3 (07:24→23:29)
--- NOTE | 2025-01-25 08:10 | PHA.MEDREC ---
Pharmacy Consult ? Medication Reconciliation Pharmacy has completed the medication reconciliation. Spoke with patient, she was able to confirm medications. Confirmed Lantis 16 units daily, Lasix 40mg daily, prednisone 20mg daily, and seroquel 50mg BID.
[2025-01-25] MEDS: Albuterol/Iprat 2.5/0.5MG 3 ML AMPUL.NEB INHALE ×4 (08:22→20:39)
--- NOTE | 2025-01-25 09:23 | MHC.CM.PN ---
Pt lives at home with her daughter/HCP/PERSONAL CAREGIVER Jaja. She receives 73 PERSONAL CAREGIVER hours/week, is active with [facility]. Pt has a cane, walker, wheelchair, and home O2 and BiPap through [facility]. Pt will transport home via BLS. PCP: Joe MELO
[2025-01-25] MEDS: Theophylline Anhydrous ER 400 MG TAB.ER.24H PO ×2 (11:08→21:11)
[2025-01-25] MEDS: Calcium + Vitamin D 250 MG TABLET 500 MG PO (11:08)
[2025-01-25] MEDS: Aspirin Enteric Coated 81 MG TABLET.DR PO (11:08)
[2025-01-25] MEDS: guaiFENesin 200 MG/10 ML 10 ML LIQUID 5 ML PO (11:20)
[2025-01-25 11:25] LABS: Glucose, Whole Blood 394 mg/dL (60-115)
[2025-01-25] MEDS: Lidocaine 4 % Patch ADH..PATCH 1 PATCH TRANSDERMA (11:35)
--- NOTE | 2025-01-25 15:44 | P.EN_ITS ---
Event Note Date of Service: 01/25/25 Event Note: Patient seen and examined by hospitalist team this morning seen and examined again Says shortness of breath seems to be somewhat improving, has some soreness with the coughing. Patient also was found to have Gram-negative bacteremia Physical exam and assessment plan unchanged from H&P. Continue management for COPD/CHF exacerbation-please see H&P. Patient had E coli bacteremia in 2019-E coli sensitive to cefazolin/levaquin: Added ceftriaxone IV 2 g q.d. ID evaluation,added ua. patient currently denies any abd symptoms during last admission:recent ct abd without contrast on 01/10:No acute intra- abdominal findings. 2. Operative changes of ventral hernia repair with multiple residual/recurrent fat containing hernias. No bowel is contained within these hernias and there is no bowel obstruction. 3. Chronic and incidental findings as above. Time Spent With Patient Time: Total time managing care of this patient today ____ minutes.
[2025-01-25 16:12] LABS: Glucose, Whole Blood 172 mg/dL (60-115)
[2025-01-25 17:42] LABS: Appearance Urine Clear; Glucose Urine UA 250 mg/dL (Negative); PH 6.0 (5.0-9.0); Specific Gravity - Urine 1.010 (1.005-1.025); UMIC TRIGGER UA YES
[2025-01-25 21:08] LABS: Glucose, Whole Blood 120 mg/dL (60-115)
[2025-01-25] MEDS: Insulin Glargine,Hum.rec.anlog 100 UNIT/ML 10 ML VIAL 16 UNIT SUBCUT (21:23)
[2025-01-26] VITALS (11 sets, daily range): BP systolic 108–135; BP diastolic 46–71; PULSE 87–118; RESP 16–25; TEMP 36.2–36.7; O2SAT 92–98
[2025-01-26] MEDS: guaiFENesin 200 MG/10 ML 10 ML LIQUID 5 ML PO ×2 (04:08→16:32)
[2025-01-26 07:05] LABS: Glucose, Whole Blood 193 mg/dL (60-115)
[2025-01-26] MEDS: Albuterol/Iprat 2.5/0.5MG 3 ML AMPUL.NEB INHALE ×4 (07:33→19:33)
[2025-01-26] MEDS: Aspirin Enteric Coated 81 MG TABLET.DR PO (08:31)
[2025-01-26] MEDS: Calcium + Vitamin D 250 MG TABLET 500 MG PO (08:32)
[2025-01-26] MEDS: Theophylline Anhydrous ER 400 MG TAB.ER.24H PO ×2 (08:32→20:37)
[2025-01-26] MEDS: 0.9 % Sodium Chloride Flush 3 ML SYRINGE IVFLUSH (08:33)
[2025-01-26] MEDS: Furosemide 20 MG/2 ML VIAL IVPUSH ×2 (08:33→18:15)
[2025-01-26] MEDS: Lidocaine 4 % Patch ADH..PATCH 1 PATCH TRANSDERMA (08:34)
[2025-01-26 11:02] LABS: Glucose, Whole Blood 126 mg/dL (60-115)
--- NOTE | 2025-01-26 11:09 | HO.PM.IMPN ---
Subjective Subjective Date of Service: 01/26/25 Interval History: copd excerebation, gram negative bacteremia Review of Systems sob seems improving denies new c/o Review of Systems: Yes all other systems are reviewed and are negative Physical Exam Exam: Exam: Appearance: Alert.? Oriented X3.? cvs: rrr, [id number]. res: air entry seems improivng ,has mild b/l exp wheezing abd: no rebound or guarding ,nt, bs present. ext pulses present , no cyanosis . neuro: axo3 , nonfocal. Vital Signs: Vital Signs: Last Vital Signs Temp 97.5 F 01/26/25 06:59 Pulse 97 01/26/25 07:34 Resp 20 01/26/25 07:34 BP 118/61 01/26/25 06:59 Pulse Ox 93 01/26/25 06:59 O2 Del Method Nasal Cannula 01/26/25 06:59 O2 Flow Rate 2 01/26/25 06:59 Oxygen Flow Rate 2 01/24/25 23:22 BMI result Body Mass Index 35.2 Objective Data Active Medications Acetaminophen (Acetaminophen 325 Mg Tablet) 975 mg PO Q6H PRN PRN Reason: Pain, Mild 1-3,fever,headache Albuterol Sulfate (Albuterol Sulfate (0.083%) 2.5 Mg/3 Ml Vial.Neb) 2.5 mg INHALE Q2H PRN PRN Reason: Shortness of Breath/Wheezing Albuterol/Ipratropium (Albuterol/Iprat 2.5/0.5mg 3 Ml Ampul.Neb) 3 ml INHALE RQ4H WHILE AWAKE [facility] Last Admin: 01/26/25 07:33 Dose: 3 ml Documented By: ANDREA Aspirin (Aspirin Enteric Coated 81 Mg Tablet.) 81 mg PO DAILY [facility] Last Admin: 01/26/25 08:31 Dose: 81 mg Documented By: SHONA Atorvastatin Calcium (Atorvastatin Calcium 40 Mg Tablet) 40 mg PO BEDTIME [facility] Last Admin: 01/25/25 21:11 Dose: 40 mg Documented By: TRUDI Calcium Carbonate (Calcium Carbonate 750 Mg Tab.Chew) 750 mg PO Q4H PRN PRN Reason: Heartburn Calcium Carbonate/Cholecalciferol (Calcium + Vitamin D 250 Mg Tablet) 500 mg PO DAILY [facility] Last Admin: 01/26/25 08:32 Dose: 500 mg Documented By: SHONA Ceftriaxone Sodium (Ceftriaxone Sodium 2 Gm Vial) 2 gm IVPUSH Q24H [facility] Last Admin: 01/25/25 14:57 Dose: 2 gm Documented By: SHONA Dextrose (Dextrose 50 % 25 Gm/50 Ml Syringe) 25 gm IVPUSH Q15M PRN; Protocol PRN Reason: per Hypoglycemia Standing Ord. Enoxaparin Sodium (Enoxaparin Sodium 40 Mg/0.4 Ml Syringe) 40 mg SUBCUT Q24H [facility] Last Admin: 01/26/25 08:33 Dose: 40 mg Documented By: SHONA Furosemide (Furosemide 20 Mg/2 Ml Vial) 20 mg IVPUSH BID@0900,1800 [facility]; Protocol Last Admin: 01/26/25 08:33 Dose: 20 mg Documented By: SHONA Gabapentin (Gabapentin 400 Mg Capsule) 800 mg PO QID [facility] Last Admin: 01/26/25 08:31 Dose: 800 mg Documented By: SHONA Glipizide (Glipizide 5 Mg Tablet) 5 mg PO DAILY [facility] Last Admin: 01/26/25 08:31 Dose: 5 mg Documented By: SHONA Glucose (Glucose Gel 15 Gm Gel..Gram.) 15 gm PO Q15M PRN; Protocol PRN Reason: per Hypoglycemia Standing Ord. Guaifenesin (Guaifenesin 200 Mg/10 Ml 10 Ml Liquid) 5 ml PO Q4H PRN PRN Reason: Cough Last Admin: 01/26/25 04:08 Dose: 5 ml Documented By: CARRI Levofloxacin (Levaquin) 500 mg in 100 mls @ 100 mls/hr IV Q24H [facility] Last Infusion: 01/26/25 00:35 Dose: Infused Documented By: TRUDI Insulin Glargine (Insulin Glargine,Hum.Rec.Anlog 100 Unit/Ml 10 Ml Vial) 16 unit SUBCUT BEDTIME [facility] Last Admin: 01/25/25 21:23 Dose: 16 unit Documented By: TRUDI Insulin Human Lispro (Insulin Lispro 100 Unit/Ml 3 Ml Vial) 0 unit SUBCUT QIDACHS [facility]; Protocol Last Admin: 01/26/25 08:33 Dose: 2 unit Documented By: SHONA Lidocaine (Lidocaine 4 % Patch Adh..Patch) 1 patch TRANSDERMA DAILY [facility]; Protocol Last Admin: 01/26/25 08:34 Dose: 1 patch Documented By: SHONA Loratadine (Loratadine 10 Mg Tablet) 10 mg PO DAILY [facility] Last Admin: 01/26/25 08:31 Dose: 10 mg Documented By: SHONA Losartan Potassium (Losartan Potassium 50 Mg Tablet) 50 mg PO DAILY [facility]; Protocol Last Admin: 01/26/25 08:31 Dose: 50 mg Documented By: SHONA Magnesium Hydroxide (Milk Of Magnesia 30 Ml Oral.Susp) 30 ml PO DAILY PRN PRN Reason: Constipation Methylprednisolone Sodium Succinate (Methylprednisolone Sod Succ 40 Mg/Ml Vial) 40 mg IVPUSH Q12H [facility] Last Admin: 01/26/25 08:33 Dose: 40 mg Documented By: SHONA Omeprazole (Omeprazole 20 Mg Capsule.Dr) 20 mg PO DAILY@0630 [facility] Last Admin: 01/26/25 05:56 Dose: 20 mg Documented By: TRUDI Quetiapine Fumarate (Quetiapine Fumarate 50 Mg Tablet) 50 mg PO BID [facility] Last Admin: 01/26/25 08:31 Dose: 50 mg Documented By: SHONA Sertraline HCl (Sertraline Hcl 100 Mg Tablet) 100 mg PO BID [facility] Last Admin: 01/26/25 08:31 Dose: 100 mg Documented By: SHONA Sodium Chloride (0.9 % Sodium Chloride Flush 3 Ml Syringe) 3 ml IVFLUSH QSHIFT [facility] Last Admin: 01/26/25 08:33 Dose: 3 ml Documented By: SHONA Theophylline (Theophylline Anhydrous Er 400 Mg Tab.Er.24h) 400 mg PO BID [facility] Last Admin: 01/26/25 08:32 Dose: 400 mg Documented By: SHONA Tizanidine HCl (Tizanidine Hcl 4 Mg Tablet) 4 mg PO Q12H [facility] Last Admin: 01/26/25 08:32 Dose: 4 mg Documented By: SHONA Topiramate (Topiramate 25 Mg Tablet) 50 mg PO BID [facility] Last Admin: 01/26/25 08:32 Dose: 50 mg Documented By: SHONA Labs 01/25/25 06:19 01/25/25 06:19 Labs: Laboratory Results - last 24 hr 01/25/25 01/25/25 01/25/25 11:19 16:08 17:00 POC Glucose 394 H* 172 H Urine Color Yellow Urine Appearance Clear Urine pH 6.0 Ur Specific [place] 1.010 Urine Protein Negative Urine Glucose (UA) 250 H Urine Ketones Negative Urine Blood Negative Urine Nitrite Positive H Ur Leukocyte Esterase Small (1+) H Urine RBC 0-2 Urine WBC 0-5 Ur Squamous Epith Cells 0-2 Urine Bacteria 4+ Hyaline Casts 0-2 01/25/25 01/26/25 01/26/25 20:57 06:53 10:50 POC Glucose 120 H 193 H 126 H Urine Color Urine Appearance Urine pH Ur Specific [place] Urine Protein Urine Glucose (UA) Urine Ketones Urine Blood Urine Nitrite Ur Leukocyte Esterase Urine RBC Urine WBC Ur Squamous Epith Cells Urine Bacteria Hyaline Casts Microbiology Microbiology Results: Microbiology 01/25/25 00:19 Blood Culture - Preliminary Blood - Venous Gram negative babita 01/24/25 23:57 Blood Culture - Preliminary Blood - Venous Gram negative babita Assessment and Plan (1) Gram-negative bacteremia: Status: Acute Plan 54 y/o woman with PMHx significant for obesity hypoventilatory syndrome admitted for management of: Acute on chronic respiratory hypoxia and hypercapnia respiratory failure secondary to acute exacerbation of COPD and component of acute on chronic systolic congestive heart failure. Telemetry. Pulse oximetry. Continue bronchodilator therapy, IV steroids and IV diuresis. Continue tube feeding. Nocturnal BiPAP. Patient advised to quit smoking tobacco. Gram negative bacteremia unclear etiology: Patient had E coli bacteremia in 2019-E coli sensitive to cefazolin/levaquin patient currently denies any abd symptoms during last admission:recent ct abd without contrast on 01/10:No acute intra-abdominal findings. 2. Operative changes of ventral hernia repair with multiple residual/recurrent fat containing hernias. No bowel is contained within these hernias and there is no bowel obstruction. 3. Chronic and incidental findings as above plan: continue ceftriaxone IV 2 g q.d. ID evaluation, ua positive for leukocyte esterase/nitrite/4+ bacteria , added urine urine culture,does not have urinary c/o. Type 2 diabetes mellitus. BG checks before meals at bedtime. Lantus, insulin sliding scale and glipizide. Diabetic diet. Hyperlipidemia. Continue atorvastatin. Essential hypertension. Continue losartan. Mood disorder. Continue Seroquel, sertraline, topiramate. GERD. Continue PPI. Tobacco dependence. Tobacco cessation education. Obesity. BMI 36.6 kg/m2. Weight loss. DVT prophylaxis: Lovenox Code status: Full Med rec pending Patient will need hospitalization for at least 2 midnights for acute respiratory failure treatment with IV steroids, IV diuretics and bronchodilator therapy. Quality Stroke Does the patient have a stroke diagnosis?: No VTE Prior VTE?: No VTE Risk Level:: Medical - moderate - high VTE Device Contraindication: Treatment Not Indicated VTE Drug Contraindication: N/A - Med Ordered
[2025-01-26 16:18] LABS: Glucose, Whole Blood 221 mg/dL (60-115)
[2025-01-26] MEDS: Milk of Magnesia 30 ML ORAL.SUSP PO (18:16)
[2025-01-26 19:46] LABS: Glucose, Whole Blood 205 mg/dL (60-115)
[2025-01-26] MEDS: Insulin Glargine,Hum.rec.anlog 100 UNIT/ML 10 ML VIAL 16 UNIT SUBCUT (21:05)
[2025-01-27] VITALS (15 sets, daily range): BP systolic 112–147; BP diastolic 56–76; PULSE 70–125; RESP 17–22; TEMP 36.3–36.8; O2SAT 90–98
--- NOTE | 2025-01-27 | P.CNID_ITS ---
History of Present Illness Data of Consult Service Date: 01/27/25 Requesting physician: Nasrin Burton Primary Care Provider: Joe Hale SAMPLE COLLECTOR- HPI Reason for consult: bacteremia She presents with shortness of breath and yellowish sputum. Urine has some pyuria and vague abdominal symptoms. She has gram negative rods in blood x 2 from 01/24 and no acute changes on CT abdomen. Review of Systems 2 Review of Systems: Yes all other systems are reviewed and are negative PMFSH Past Medical History Medical History Chronic lung disease Chronic lung disease BAHMAN (generalized anxiety disorder) COPD (chronic obstructive pulmonary disease) Cocaine use disorder Cocaine abuse GERD (gastroesophageal reflux disease) Constipation Non-insulin dependent type 2 diabetes mellitus HENRY (obstructive sleep apnea) Acute exacerbation of chronic obstructive airways disease Asthma with exacerbation Obesity hypoventilation syndrome Chronic lung disease Hypoxic respiratory failure Nocturnal hypoxemia Diabetes mellitus COPD exacerbation Crack cocaine use Hyperkalemia Metabolic acidosis Leukocytosis Chest discomfort Chronic renal failure, stage 2 (mild) SOB (shortness of breath) Asthma Smoker Rotator cuff tendonitis GERD (gastroesophageal reflux disease) Chronic idiopathic constipation Bustos's esophagus Depression High triglycerides Gastroparesis Carpal tunnel syndrome of right wrist Nausea & vomiting Hernia Acute and chronic respiratory failure, unspecified whether with hypoxia or hypercapnia HTN (hypertension) Obesity (BMI 30-39.9) Knee pain, bilateral Family History Family History Father Heart disease HNERY (obstructive sleep apnea) Family history of breast cancer Mother Asthma Emphysema, unspecified Bronchitis Smoker Alcoholism Bone marrow disease Maternal Grandmother Diabetes Family history: reviewed and not pertinent Surgical History Surgical History History of cholecystectomy (~1988) History of carpal tunnel release Hx of tubal ligation History of pubovaginal sling (~2015) History of umbilical hernia repair (~2001) Hx of section History of open reduction and internal fixation (ORIF) procedure History of esophagogastroduodenoscopy (EGD) Social History Social History Household Members: Children Household Members Other:: daughter Housing: House Housing Other:: 3 family house Are you a primary urgent care nurse practitioner to a significant other at home: No Do you presently have visiting nurse or other home services: Yes Unable to assess alcohol history related to: Unknown Alcohol intake: never Comment: refusing socks Patient Tobacco Use Status: Current everyday Tobacco user Tobacco use type: Cigarette Cigarette Packs Per Day: 0.5 Cigarettes Per Day: 10 Years Smoked: 40 e-Cigarette/Vaping Use: Currently Using Second Hand Smoke Exposure: Yes Substance Use Type: Crack/Cocaine Advance Directives Date on File: 12/19/23 service: No Current occupational status: disabled 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 Meds Allergies Allergy/AdvReac Type Severity Reaction Status Date / Time doxycycline Allergy Severe Swelling Verified 01/24/25 23:32 varenicline (From CHANTIX) Allergy Severe ANAPHYLAXIS Verified 01/24/25 23:32 azithromycin Allergy Intermediate Rash Verified 01/24/25 23:32 barium sulfate Allergy Intermediate angioedema Verified 01/24/25 23:32 cetirizine Allergy Mild Rash Verified 01/24/25 23:32 famotidine Allergy Mild Rash Verified 01/24/25 23:32 linaclotide (Linzess) Allergy Mild Rash Verified 01/24/25 23:32 Active Medications: Current Medications Acetaminophen (Acetaminophen 325 Mg Tablet) 975 mg PO Q6H PRN PRN Reason: Pain, Mild 1-3,fever,headache Albuterol Sulfate (Albuterol Sulfate (0.083%) 2.5 Mg/3 Ml Vial.Neb) 2.5 mg INHALE Q2H PRN PRN Reason: Shortness of Breath/Wheezing Albuterol/Ipratropium (Albuterol/Iprat 2.5/0.5mg 3 Ml Ampul.Neb) 3 ml INHALE RQ4H WHILE AWAKE [facility] Last Admin: 01/26/25 19:33 Dose: 3 ml Aspirin (Aspirin Enteric Coated 81 Mg Tablet.) 81 mg PO DAILY [place] Last Admin: 01/26/25 08:31 Dose: 81 mg Atorvastatin Calcium (Atorvastatin Calcium 40 Mg Tablet) 40 mg PO BEDTIME [place] Last Admin: 01/26/25 20:37 Dose: 40 mg Calcium Carbonate (Calcium Carbonate 750 Mg Tab.Chew) 750 mg PO Q4H PRN PRN Reason: Heartburn Last Admin: 01/26/25 18:16 Dose: 750 mg Calcium Carbonate/Cholecalciferol (Calcium + Vitamin D 250 Mg Tablet) 500 mg PO DAILY [facility] Last Admin: 01/26/25 08:32 Dose: 500 mg Ceftriaxone Sodium (Ceftriaxone Sodium 2 Gm Vial) 2 gm IVPUSH Q24H [place] Last Admin: 01/26/25 12:47 Dose: 2 gm Dextrose (Dextrose 50 % 25 Gm/50 Ml Syringe) 25 gm IVPUSH Q15M PRN; Protocol PRN Reason: per Hypoglycemia Standing Ord. Enoxaparin Sodium (Enoxaparin Sodium 40 Mg/0.4 Ml Syringe) 40 mg SUBCUT Q24H [facility] Last Admin: 01/26/25 08:33 Dose: 40 mg Furosemide (Furosemide 20 Mg/2 Ml Vial) 20 mg IVPUSH BID@0900,1800 [facility]; Protocol Last Admin: 01/26/25 18:15 Dose: 20 mg Gabapentin (Gabapentin 400 Mg Capsule) 800 mg PO QID [facility] Last Admin: 01/26/25 20:38 Dose: 800 mg Glipizide (Glipizide 5 Mg Tablet) 5 mg PO DAILY [facility] Last Admin: 01/26/25 08:31 Dose: 5 mg Glucose (Glucose Gel 15 Gm Gel..Gram.) 15 gm PO Q15M PRN; Protocol PRN Reason: per Hypoglycemia Standing Ord. Guaifenesin (Guaifenesin 200 Mg/10 Ml 10 Ml Liquid) 5 ml PO Q4H PRN PRN Reason: Cough Last Admin: 01/26/25 16:32 Dose: 5 ml Insulin Glargine (Insulin Glargine,Hum.Rec.Anlog 100 Unit/Ml 10 Ml Vial) 16 unit SUBCUT BEDTIME [facility] Last Admin: 01/26/25 21:05 Dose: 16 unit Insulin Human Lispro (Insulin Lispro 100 Unit/Ml 3 Ml Vial) 0 unit SUBCUT QIDACHS [facility]; Protocol Last Admin: 01/26/25 21:05 Dose: 4 unit Lidocaine (Lidocaine 4 % Patch Adh..Patch) 1 patch TRANSDERMA DAILY [facility]; Protocol Last Admin: 01/26/25 08:34 Dose: 1 patch Loratadine (Loratadine 10 Mg Tablet) 10 mg PO DAILY [facility] Last Admin: 01/26/25 08:31 Dose: 10 mg Losartan Potassium (Losartan Potassium 50 Mg Tablet) 50 mg PO DAILY [facility]; Protocol Last Admin: 01/26/25 08:31 Dose: 50 mg Magnesium Hydroxide (Milk Of Magnesia 30 Ml Oral.Susp) 30 ml PO DAILY PRN PRN Reason: Constipation Last Admin: 01/26/25 18:16 Dose: 30 ml Methylprednisolone Sodium Succinate (Methylprednisolone Sod Succ 40 Mg/Ml Vial) 40 mg IVPUSH DAILY [facility] Omeprazole (Omeprazole 20 Mg Capsule.Dr) 20 mg PO DAILY@0630 [facility] Last Admin: 01/26/25 05:56 Dose: 20 mg Quetiapine Fumarate (Quetiapine Fumarate 50 Mg Tablet) 50 mg PO BID [facility] Last Admin: 01/26/25 20:38 Dose: 50 mg Sertraline HCl (Sertraline Hcl 100 Mg Tablet) 100 mg PO BID [facility] Last Admin: 01/26/25 20:38 Dose: 100 mg Sodium Chloride (0.9 % Sodium Chloride Flush 3 Ml Syringe) 3 ml IVFLUSH QSHIFT [facility] Last Admin: 01/26/25 23:00 Dose: Not Given Theophylline (Theophylline Anhydrous Er 400 Mg Tab.Er.24h) 400 mg PO BID [facility] Last Admin: 01/26/25 20:37 Dose: 400 mg Tizanidine HCl (Tizanidine Hcl 4 Mg Tablet) 4 mg PO Q12H [facility] Last Admin: 01/26/25 20:37 Dose: 4 mg Topiramate (Topiramate 25 Mg Tablet) 50 mg PO BID [facility] Last Admin: 01/26/25 20:38 Dose: 50 mg Home Medications ?Medication ?Instructions ?Recorded ?Confirmed ?Last Taken ?Type tiotropium 2.5 mcg-olodaterol 2.5 2 puff inhalation DA PHIL 11/26/24 01/25/25 01/24/25 History mcg/actuation mist for inhalation (Stiolto Respimat) insulin glargine 100 unit/mL (3 16 unit subcut BEDTIME 12/01/24 01/25/25 01/24/25 History mL) subcutaneous pen (Lantus Solostar U-100 Insulin) quetiapine 50 mg tablet 50 mg PO BID 12/18/2401/24/25 History topiramate 25 mg tablet 50 mg PO BID 12/18/2401/24/25 History furosemide 20 mg tablet 40 mg PO DAILY 01/09/25 0702/2201/24/25 History ipratropium 0.5 mg-albuterol 3 mg 3 ml inhalation QID PRN Shortness 01/09/25 01/25/25 Unknown History (2.5 mg base)/3 mL nebulization Of Breath Or Wheezing soln sertraline 100 mg tablet 100 mg PO BID 01/12/2501/2501/24/25 History glipizide 5 mg tablet 5 mg PO DAILY 01/25/2501/2501/24/25 History prednisone 20 mg tablet 20 mg PO DAILY 01/25/25 07/02/2201/24/25 History Physical Exam 2 Vital Signs: Vital Signs: Last Vital Signs Temp 98.0 F 01/26/25 23:22 Pulse 118 H 01/26/25 23:22 Resp 17 01/26/25 23:22 BP 121/46 L 01/26/25 23:22 Pulse Ox 93 01/26/25 23:22 O2 Del Method Nasal Cannula 01/26/25 23:22 O2 Flow Rate 2 01/26/25 23:22 Oxygen Flow Rate 2 01/24/25 23:22 BMI result Body Mass Index 35.2 Const: General: cooperative HEENT: Head: Yes normal to inspection Face and sinus: Yes normal facial exam Mouth: Normal oral and palatal mucosa present Teeth and gingiva: d entition normal Eyes: General: appearance normal, both eyes and all related structures P upils: Equal, round and reactive pupils present Resp: Other: rhonchi bases Cardio: Rate: regular rate Rhythm: regular rhythm GI: Palpation (GI): Soft to palpation and nontender : General: Yes no CVA tenderness Back/Spine/Pelvis: Back: no CVA tenderness Skin: General skin exam: no rashes or lesions noted Neuro: General: moves all extremities Cranial nerves: Yes Equal, round and reactive pupils present Extrem: General: Yes normal to inspection Psych: Appearance: grossly normal Results Labs 01/25/25 06:19 01/25/25 06:19 Microbiology Microbiology Results: Microbiology 01/25/25 00:19 Blood - Venous Blood Culture - Preliminary Gram negative babita 01/24/25 23:57 Blood - Venous Blood Culture - Preliminary Gram negative babita Assessment and Plan (1) Gram-negative bacteremia: Status: Acute Plan There is possible urine source. Less likely Pseudomonas lung Change to piperacillin/tazobactam and await final culture.
--- NOTE | 2025-01-27 | ECG_ITS ---
Test Reason : chest pain Blood Pressure : */* mmHG Vent. Rate : 112 BPM Atrial Rate : 112 BPM P-R Int : 90 ms QRS Dur : 100 ms QT Int : 336 ms P-R-T Axes : * 136 56 degrees QTcB Int : 458 ms Sinus tachycardia with short IN with frequent Premature ventricular complexes Right axis deviation Right ventricular hypertrophy Abnormal ECG When compared with ECG of 24-Jan-2025 23:28, Premature ventricular complexes are now Present Premature atrial complexes are no longer Present IN interval has decreased Referred By: Nora Hull Electronically Signed By: PAUL VARGAS MD
[2025-01-27] MEDS: Albuterol Sulfate (0.083%) 2.5 MG/3 ML VIAL.NEB INHALE ×2 (04:49→23:09)
[2025-01-27 06:59] LABS: Hematocrit 31.4 % (37.0-47.0); Hemoglobin 8.6 g/dl (12.0-16.0); Mean Corpuscular HGB Conc 27.4 g/dl (31.0-35.0); Mean Corpuscular Hemoglobin 20.0 pg (27.0-33.0); Mean Corpuscular Volume 72.9 fL (80.0-98.0); NRBC Abs Auto 0.030 X10*3/uL (0.0-0.012); NRBC Pct Auto 0.2 /100WBC (0.0-0.2); Platelet Count 493 X10*3/uL (160-400); Red Blood Count 4.31 X10*6/uL (4.20-5.50); White Blood Count 16.1 X10*3/uL (4.8-10.8)
[2025-01-27 07:18] LABS: Anion Gap 13 (12-20); Blood Urea Nitrogen 33 mg/dL (9-16); Calcium 9.0 mg/dL (8.4-10.2); Carbon Dioxide 30 mmol/L (22-29); Chloride 103 mmol/L (96-108); Creatinine Clr Calc Pharmacy 55.3; Estimated Glomerular Filt Rate 55; Potassium 4.3 mmol/L (3.3-5.1); Sodium 142 mmol/L (135-145)
[2025-01-27 07:31] LABS: Glucose, Whole Blood 124 mg/dL (60-115)
[2025-01-27] MEDS: Albuterol/Iprat 2.5/0.5MG 3 ML AMPUL.NEB INHALE ×4 (07:34→18:54)
[2025-01-27] MEDS: Aspirin Enteric Coated 81 MG TABLET.DR PO (09:57)
[2025-01-27] MEDS: Furosemide 20 MG/2 ML VIAL IVPUSH ×2 (09:57→18:38)
[2025-01-27] MEDS: Theophylline Anhydrous ER 400 MG TAB.ER.24H PO ×2 (09:58→19:42)
[2025-01-27] MEDS: Lidocaine 4 % Patch ADH..PATCH 1 PATCH TRANSDERMA (09:58)
[2025-01-27] MEDS: Calcium + Vitamin D 250 MG TABLET 500 MG PO (09:58)
[2025-01-27] MEDS: 0.9 % Sodium Chloride Flush 3 ML SYRINGE IVFLUSH ×2 (09:59→19:47)
[2025-01-27] MEDS: guaiFENesin 200 MG/10 ML 10 ML LIQUID 5 ML PO (10:16)
[2025-01-27 11:26] LABS: Glucose, Whole Blood 181 mg/dL (60-115)
--- NOTE | 2025-01-27 11:55 | MHC.CM.PN ---
Per ROUNDS discussion, Patient is not yet medically cleared for dc (final blood cultures are pending); home/resume services is Patient's goal and CM will continue to follow.
[2025-01-27 16:25] LABS: Glucose, Whole Blood 341 mg/dL (60-115)
--- NOTE | 2025-01-27 18:53 | HO.PM.IMPN ---
Subjective Subjective Date of Service: 01/27/25 Interval History: Pt reports abdominal hernias were ?bothering her overnight Otherwise without complaints SOB and breathing better No acute events overnight Wishes to go home Blood culture positive for ESBL E coli susceptible to ertapenem Review of Systems Review of Systems: Yes all other systems are reviewed and are negative Physical Exam Exam: Exam: General: AOx3, no acute distress Resp: CTA bilaterally, diminished. No wheezing appreciated CVS: S1, S2, RRR GI: +BS, NT, no distention Skin: Warm, dry Neuro: Cranial nerves II-XII grossly intact bilaterally. Motor grossly intact bilaterally Extremities: No edema Psych: Appropriate affect Vital Signs: Vital Signs: Last Vital Signs Temp 97.7 F 01/27/25 15:48 Pulse 108 H 01/27/25 15:52 Resp 20 01/27/25 15:52 BP 127/59 L 01/27/25 18:38 Pulse Ox 92 01/27/25 15:48 O2 Del Method Nasal Cannula 01/27/25 15:48 O2 Flow Rate 2 01/27/25 15:48 Oxygen Flow Rate 2 01/24/25 23:22 BMI result Body Mass Index 35.2 Objective Data Active Medications Acetaminophen (Acetaminophen 325 Mg Tablet) 975 mg PO Q6H PRN PRN Reason: Pain, Mild 1-3,fever,headache Albuterol Sulfate (Albuterol Sulfate (0.083%) 2.5 Mg/3 Ml Vial.Neb) 2.5 mg INHALE Q2H PRN PRN Reason: Shortness of Breath/Wheezing Last Admin: 01/27/25 04:49 Dose: 2.5 mg Documented By: TANIA Albuterol/Ipratropium (Albuterol/Iprat 2.5/0.5mg 3 Ml Ampul.Neb) 3 ml INHALE RQ4H WHILE AWAKE [facility] Last Admin: 01/27/25 15:52 Dose: 3 ml Documented By: REHANA Aspirin (Aspirin Enteric Coated 81 Mg Tablet.) 81 mg PO DAILY [facility] Last Admin: 01/27/25 09:57 Dose: 81 mg Documented By: ROSARIO Atorvastatin Calcium (Atorvastatin Calcium 40 Mg Tablet) 40 mg PO BEDTIME [facility] Last Admin: 01/26/25 20:37 Dose: 40 mg Documented By: PIERCE Calcium Carbonate (Calcium Carbonate 750 Mg Tab.Chew) 750 mg PO Q4H PRN PRN Reason: Heartburn Last Admin: 01/26/25 18:16 Dose: 750 mg Documented By: SHONA Calcium Carbonate/Cholecalciferol (Calcium + Vitamin D 250 Mg Tablet) 500 mg PO DAILY [facility] Last Admin: 01/27/25 09:58 Dose: 500 mg Documented By: ROSARIO Dextrose (Dextrose 50 % 25 Gm/50 Ml Syringe) 25 gm IVPUSH Q15M PRN; Protocol PRN Reason: per Hypoglycemia Standing Ord. Enoxaparin Sodium (Enoxaparin Sodium 40 Mg/0.4 Ml Syringe) 40 mg SUBCUT Q24H [facility] Last Admin: 01/27/25 09:57 Dose: 40 mg Documented By: ROSARIO Furosemide (Furosemide 20 Mg/2 Ml Vial) 20 mg IVPUSH BID@0900,1800 [facility]; Protocol Last Admin: 01/27/25 18:38 Dose: 20 mg Documented By: DOUG Gabapentin (Gabapentin 400 Mg Capsule) 800 mg PO QID [facility] Last Admin: 01/27/25 16:57 Dose: 800 mg Documented By: DOUG Glipizide (Glipizide 5 Mg Tablet) 5 mg PO DAILY [facility] Last Admin: 01/27/25 09:57 Dose: 5 mg Documented By: ROSARIO Glucose (Glucose Gel 15 Gm Gel..Gram.) 15 gm PO Q15M PRN; Protocol PRN Reason: per Hypoglycemia Standing Ord. Guaifenesin (Guaifenesin 200 Mg/10 Ml 10 Ml Liquid) 5 ml PO Q4H PRN PRN Reason: Cough Last Admin: 01/27/25 10:16 Dose: 5 ml Documented By: ROSARIO Insulin Glargine (Insulin Glargine,Hum.Rec.Anlog 100 Unit/Ml 10 Ml Vial) 16 unit SUBCUT BEDTIME [facility] Last Admin: 01/26/25 21:05 Dose: 16 unit Documented By: PIERCE Insulin Human Lispro (Insulin Lispro 100 Unit/Ml 3 Ml Vial) 0 unit SUBCUT QIDACHS [facility]; Protocol Last Admin: 01/27/25 16:57 Dose: 8 unit Documented By: DOUG Lidocaine (Lidocaine 4 % Patch Adh..Patch) 1 patch TRANSDERMA DAILY [facility]; Protocol Last Admin: 01/27/25 09:58 Dose: 1 patch Documented By: ROSARIO Loratadine (Loratadine 10 Mg Tablet) 10 mg PO DAILY [facility] Last Admin: 01/27/25 09:58 Dose: 10 mg Documented By: ROSARIO Losartan Potassium (Losartan Potassium 50 Mg Tablet) 50 mg PO DAILY [facility]; Protocol Last Admin: 01/27/25 09:58 Dose: 50 mg Documented By: ROSARIO Magnesium Hydroxide (Milk Of Magnesia 30 Ml Oral.Susp) 30 ml PO DAILY PRN PRN Reason: Constipation Last Admin: 01/26/25 18:16 Dose: 30 ml Documented By: SHONA Meropenem (Meropenem 1 Gm Vial) 1 gm IVPUSH Q8H [facility] Last Admin: 01/27/25 18:38 Dose: 1 gm Documented By: DOUG Methylprednisolone Sodium Succinate (Methylprednisolone Sod Succ 40 Mg/Ml Vial) 40 mg IVPUSH DAILY [facility] Last Admin: 01/27/25 09:57 Dose: 40 mg Documented By: ROSARIO Omeprazole (Omeprazole 20 Mg Capsule.Dr) 20 mg PO DAILY@0630 [facility] Last Admin: 01/27/25 05:54 Dose: 20 mg Documented By: PIERCE Quetiapine Fumarate (Quetiapine Fumarate 50 Mg Tablet) 50 mg PO BID [facility] Last Admin: 01/27/25 09:59 Dose: 50 mg Documented By: ROSARIO Sertraline HCl (Sertraline Hcl 100 Mg Tablet) 100 mg PO BID [facility] Last Admin: 01/27/25 09:57 Dose: 100 mg Documented By: ROSARIO Sodium Chloride (0.9 % Sodium Chloride Flush 3 Ml Syringe) 3 ml IVFLUSH QSHIFT [facility] Last Admin: 01/27/25 16:58 Dose: Not Given Documented By: DOUG Non-Admin Reason: Previously Administered Theophylline (Theophylline Anhydrous Er 400 Mg Tab.Er.24h) 400 mg PO BID [facility] Last Admin: 01/27/25 09:58 Dose: 400 mg Documented By: ROSARIO Tizanidine HCl (Tizanidine Hcl 4 Mg Tablet) 4 mg PO Q12H [facility] Last Admin: 01/27/25 09:57 Dose: 4 mg Documented By: ROSARIO Topiramate (Topiramate 25 Mg Tablet) 50 mg PO BID [place] Last Admin: 01/27/25 09:58 Dose: 50 mg Documented By: ROSARIO Labs 01/27/25 06:24 01/27/25 06:24 Labs: Laboratory Results - last 24 hr 01/26/25 01/27/25 01/27/25 19:42 06:24 07:22 MCV 72.9 L MCH 20.0 L MCHC 27.4 L RDW 17.5 H Plt Count 493 H MPV 9.3 L Absolute Nucleated RBC 0.030 H Nucleated RBC % (auto) 0.2 Anion Gap 13 Estim Creat Clear Calc 55.3 Estimated GFR 55 POC Glucose 205 H 124 H Random Glucose 109 Calcium 9.0 01/27/25 01/27/25 11:19 16:19 MCV MCH MCHC RDW Plt Count MPV Absolute Nucleated RBC Nucleated RBC % (auto) Anion Gap Estim Creat Clear Calc Estimated GFR POC Glucose 181 H 341 H Random Glucose Calcium Microbiology Microbiology Results: Microbiology 01/26/25 13:45 Urine Culture - Preliminary Urine clean catch - Clean Catch Midstream Gram negative babita 01/25/25 00:19 Blood Culture - Preliminary Blood - Venous Escherichia coli 01/24/25 23:57 Blood Culture - Preliminary Blood - Venous Escherichia coli Assessment and Plan (1) Gram-negative bacteremia: Status: Acute Plan 54 y/o woman with PMHx significant for obesity hypoventilatory syndrome admitted for management of: Acute on chronic respiratory hypoxia and hypercapnia respiratory failure secondary to acute exacerbation of COPD and component of acute on chronic systolic congestive heart failure. Telemetry. Pulse oximetry. Continue bronchodilator therapy, IV steroids and IV diuresis. Nocturnal BiPAP. Patient advised to quit smoking tobacco. Gram negative bacteremia Likely urine source Patient had E coli bacteremia in 2019-E coli sensitive to cefazolin/levaquin Current cultures positive for ESBL e coli susceptible to ertapenem Will treat with meropenem 1g q8h, started 01/27/2025 Will order midline, to be discharged on ertapenem x10 days Type 2 diabetes mellitus. BG checks before meals at bedtime. Lantus, insulin sliding scale and glipizide. Diabetic diet. Hyperlipidemia. Continue atorvastatin. Essential hypertension. Continue losartan. Mood disorder. Continue Seroquel, sertraline, topiramate. GERD. Continue PPI. Tobacco dependence. Tobacco cessation education. Obesity. BMI 36.6 kg/m2. Weight loss. DVT prophylaxis: Lovenox Code status: Full Med rec pending Patient will need hospitalization for at least 2 midnights for acute respiratory failure treatment with IV steroids, IV diuretics and bronchodilator therapy. Quality Stroke Does the patient have a stroke diagnosis?: No VTE Prior VTE?: No VTE Risk Level:: Medical - moderate - high VTE Device Contraindication: Treatment Not Indicated VTE Drug Contraindication: N/A - Med Ordered
[2025-01-27 20:41] LABS: Glucose, Whole Blood 130 mg/dL (60-115)
[2025-01-27] MEDS: Insulin Glargine,Hum.rec.anlog 100 UNIT/ML 10 ML VIAL 16 UNIT SUBCUT (23:03)
[2025-01-28] VITALS (7 sets, daily range): BP systolic 120–179; BP diastolic 60–89; PULSE 84–120; RESP 12–20; TEMP 36.1–37; O2SAT 92–98
[2025-01-28] MEDS: Albuterol/Iprat 2.5/0.5MG 3 ML AMPUL.NEB INHALE ×3 (06:28→15:27)
[2025-01-28 07:34] LABS: Glucose, Whole Blood 95 mg/dL (60-115)
--- NOTE | 2025-01-28 08:26 | HO.MIDLINE_ITS ---
Midline Insertion MIDLINE INSERTION Diagnosis: UTI/bacteremia Indication: 10 days Ertapenem Pertinent Labs: reviewed Technique: Using sterile technique including cap and mask, glove and drape, the right arm was prepped and draped in the usual sterile fashion of full barrier technique with CHG. Using ultrasound guidance, right basilic vein access was obtained . 4FR single lumen non PASV power midline trimmed to 10cm was positioned. The procedure was performed in rm 272. Ultrasound was used to document vein patency and for needle entry. A formal ultrasound picture was recorded. [facility] has released the line for use and it is currently dressed with a StatLock, Tegaderm, and CHG disc. Verification has been performed for blood return and line patency. Arm Circumference: 34cm Equipment: BARD POWER MIDLINE Catheter Catheter Type: 4FR single lumen non PASV Lot #: [id number]
[2025-01-28] MEDS: Calcium + Vitamin D 250 MG TABLET 500 MG PO (08:46)
[2025-01-28] MEDS: Lidocaine 4 % Patch ADH..PATCH 1 PATCH TRANSDERMA (08:47)
[2025-01-28] MEDS: Theophylline Anhydrous ER 400 MG TAB.ER.24H PO (08:47)
[2025-01-28] MEDS: Aspirin Enteric Coated 81 MG TABLET.DR PO (08:47)
[2025-01-28] MEDS: 0.9 % Sodium Chloride Flush 3 ML SYRINGE IVFLUSH (08:48)
[2025-01-28 11:16] LABS: Glucose, Whole Blood 170 mg/dL (60-115)
--- NOTE | 2025-01-28 13:24 | MHC.CM.PN ---
Addendum entered by Sia Renteria RN 01/28/25 15:09: PT NOW DISCHARGING PER REQUEST OF [facility] THEY WOULD LIKE TO COMPLETE SOC TOMORROW AND NOT OVER W/E, [facility] WILL DELIVER IV ABX TONIGHT AND [facility] WILL CONTACT [facility] FOR LOCK BOX ODELL, PT'S DTR MARINA AWARE. Addendum entered by Sia Renteria RN 01/28/25 14:13: [facility] ACCEPTING PT FOR SN/MED MANAGEMENT, [facility] DISCHARGING PT FROM SERVICES, DTR CONTACTING PT'S NURSE DIRECTLY TO DETERMINE IF LOCK BOX ODELL CAN BE DROPPED OFF AT DTR/PT'S HOME. PLAN FOR DC MONDAY 01/29 W/[facility] AND [facility] FOR IV ABX/MED MANAGEMENT, [facility] FOR BLS TRANSPORT Original Note: ANTIC PT WILL BE MEDICALLY CLEARED FOR DC HOME W/[facility] FOR SN AND POSSIBLY MED MANAGEMENT, [facility] UNABLE TO MANAGE PT'S IV ABX AND THEIR MEDICAL SN PROGRAM IS NOT CONTRACTED W/[facility] CURRENTLY REVIEWING AND WILL LET CM KNOW AVAILABILITY. IV ORDERS AND DOSING VERIFICATION FAXED TO [facility] VIA [employer].
--- NOTE | 2025-01-28 15:55 | PM.DS ---
DS: Providers Provider Date of Service: 01/28/25 Date of admission: 01/25/25 02:12 Date of discharge: 01/28/25 Primary care physician: DOTTY Lazcano Consults: 01/25/25 15:42 Consult to Infectious Diseases Routine Consulting Provider: [facility] Reason for consultation: gram negative bactermia Has provider been notified: No DS: Diagnosis Discharge Diagnosis (1) Gram-negative bacteremia: Status: Acute DS: Summary Hospital Course Hospital Course: From admission HPI: Date of Service: 01/25/25 Attending physician on admission: Jeo Austin Chief Complaint: Shortness on breath Marika Scott is a 54 years old woman with past medical history significant for obesity hypoventilatory syndrome, chronic respiratory failure with hypoxia and hypercapnia in 2-3 L/min supplemental oxygen at home, HENRY BiPAP bedtime, COPD, HFrEF (TTE September 2024 EF 40-45%), type 2 diabetes mellitus on insulin, hypertension, substance use disorder (cocaine), ongoing tobacco smoking and obesity was brought to the ED via EMS due to 2 days' history of shortness on breath, chest pain, wheezing and cough. HPI was limited as the patient was receiving ventilation via BiPAP mask. Patient has had multiple hospitalizations secondary to respiratory failure. Last time she used cocaine was 12 days ago. She does still smoking tobacco 1 pack per day. Patient received breathing treatment by EMS. In the ED, she was found to have stable vital signs. She is currently on BiPAP. Blood workup showed leukocytosis of 14.9. Hemoglobin is 8.6 platelets 460. There are no significant electrolyte imbalances. Renal function and LFTs are normal. Troponin is 22.4 and BNP is elevated at 115. CXR showed possible pulmonary edema. ECG showed sinus rhythm with PACs HR 95 beats per minute and no ischemic changes. ED tx: Solu-Medrol 125 mg IV, magnesium 2 g IV, NS 1.5 L bolus albuterol/ipratropium 5 mg/3 mL Hospital course Pt was initially admitted to the hospital for acute on chronic hypoxic and hypercapnic respiratory failure in the setting of COPD exacerbation with component of acute on chronic systolic congestive heart failure. Pt initially treated with IV steroids, bronchodilator therapy, and IV diuretics. Hospital stay was complicated by 2/2 blood cultures and UA positive for ESBL E coli sensitive to ertapenem. Pt was initially treated with ceftriaxone which was then changed to Zosyn, and then eventually to meropenem once cultures and sensitivities finalized. Patient's hospital stay was otherwise uncomplicated and she responded well to therapies. Pt had midline placed by IR and will be discharged home on ertapenem 1 g daily x10 days, set to be completed by 02/07. Midline set to be removed once antibiotic course completed. Pt also discharged with VNA services to administer IV antibiotics and medical management. For COPD continue home inhalers and home prednisone. Pt is strongly encouraged to stopped smoking. For CHF, continue home diuretics For diabetes type 2 continue home Lantus, sliding scale, and glipizide. Pt is strongly encouraged to adhere to a diabetic diet For HLD continue statin For HTN continue losartan For GERD continue PPI For mood disorder continue his Seroquel gravis sertraline, and topiramate Time Attestation Discharge Coordination Time (in mins): 35 Quality: Safe Use of Opioids Does Pt have an Active Cancer Diagnosis on the Problem List?: No Quality: Stroke Does the patient have a stroke diagnosis?: No Physical Exam Exam: Exam: General: AOx3, no acute distress Resp: CTA bilaterally though diminished CVS: S1, S2, RRR GI: +BS, NT, no distention. Non tender, reducible central abd hernia Skin: Warm, dry Neuro: Cranial nerves II-XII grossly intact bilaterally. Motor grossly intact bilaterally Extremities: No edema Psych: Appropriate affect Vital Signs: Vital Signs: Last Vital Signs Temp 98.6 F 01/28/25 15:44 Pulse 84 01/28/25 15:44 Resp 18 01/28/25 15:44 BP 179/68 H 01/28/25 15:44 Pulse Ox 96 01/28/25 15:44 O2 Del Method Nasal Cannula 01/28/25 15:44 O2 Flow Rate 4 01/28/25 15:44 Oxygen Flow Rate 2 01/24/25 23:22 BMI result Body Mass Index 35.2 DS: Data Data Completed and Pending Completed studies during hospitalization [Text1]: Procedures Assistance with Respiratory Ventilation, 24-96 Consecutive Hours, Continuous Positive Airway Pressure (10/30/24) Assistance with Respiratory Ventilation, Less than 24 Consecutive Hours, Continuous Positive Airway Pressure (01/12/25) Insertion of Endotracheal Airway into Trachea, Via Natural or Artificial Opening (10/30/24) Insertion of Infusion Device into Superior Vena Cava, Percutaneous Approach (11/03/20) Introduction of Vasopressor into Peripheral Vein, Percutaneous Approach (10/30/24) Respiratory Ventilation, Less than 24 Consecutive Hours (10/30/24) Labs on day of discharge: Laboratory Results - last 24 hr 01/27/25 01/27/25 01/28/25 16:19 20:37 07:06 POC Glucose 341 H 130 H 95 01/28/25 11:06 POC Glucose 170 H Discharge Plan Discharge Anticipated Discharge Date/Time: 01/28/25 16:30 Patient Disposition: Home Health Service Discharge Diagnosis: ESBL bacteremia Referrals: [facility] [Other] - 1 Day Referral Note: MED MANAGEMENT AND 10 DAYS IV ANTIBIOTICS [facility] [Other] - 1 Day Referral Note: [facility] WILL DELIVER YOUR IV ANTIBIOTICS AND SUPPLIES. Joe Hale, LINE MANAGER-BC [Primary Care Provider, Internal Medicine] - 1 Week Discharge Medications: Continued (DME) cane Device See Rx Instructions .Route Qty: 1 0RF Rx Instructions: Standard cane (DME) Rollator walker See Rx Instructions .Route .MEDSUPPLY Qty: 1 0RF Rx Instructions: As directed (DME) pulse oximeter See Rx Instructions .Route .MEDSUPPLY Qty: 1 0RF Rx Instructions: As directed (DME) FreeStyle Jemima 3 [place] Misc See Rx Instructions .Route Qty: 1 0RF Rx Instructions: To monitor blood sugar 4 times per day albuterol sulfate 2.5 mg /3 mL (0.083 %) solution for nebulization 2.5 mg inhalation Q4H PRN (Reason: Shortness Of Breath/Wheezing) Qty: 180 6RF theophylline 400 mg tablet extended release 24 hr 400 mg PO BID 90 Days Qty: 180 4RF albuterol sulfate [Ventolin HFA] 90 mcg/actuation HFA aerosol inhaler 2 puff inhalation Q6H PRN (Reason: for wheezing) Qty: 1 6RF acetaminophen 650 mg tablet extended release 650 mg PO Q12H PRN (Reason: pain) 30 Days Qty: 60 0RF aspirin 81 mg tablet,delayed release (DR/EC) 81 mg PO DAILY 90 Days Qty: 90 1RF atorvastatin 40 mg tablet 40 mg PO BEDTIME Qty: 90 0RF (DME) FreeStyle Lite Strips Strip See Rx Instructions .ROUTE .MEDSUPPLY Qty: 100 1RF Rx Instructions: Use to check blood sugar daily or if symptomatic hypo/hypergylcemia calcium carbonate-vitamin D3 500 mg-10 mcg (400 unit) tablet 1 tab PO DAILY Qty: 90 0RF (DME) 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 meter [FreeStyle Lite Meter] Kit See Rx Instructions .ROUTE .MEDSUPPLY Qty: 1 0RF Rx Instructions: Use to check blood sugar daily or if symptomatic for hypo/hyperglycemia esomeprazole magnesium 40 mg capsule,delayed release(DR/EC) 40 mg PO DAILY@0630 Qty: 90 1RF fexofenadine [Elisabeth Allergy] 180 mg tablet 180 mg PO DAILY Qty: 30 3RF glucose 4 gram tablet,chewable 16 g PO Q15M MDD 8 tabs PRN (Reason: hypoglycemia) Qty: 100 1RF Rx Instructions: until symptoms of low blood sugar are controlled ibuprofen 800 mg tablet 800 mg PO BID PRN (Reason: Headache) 30 Days Qty: 60 0RF Rx Instructions: please use sparingly due to diabetes (DME) lancets [FreeStyle Lancets] 28 gauge misc See Rx Instructions .ROUTE .MEDSUPPLY Qty: 100 1RF Rx Instructions: Use to check blood sugar daily or if symptomatic hypo/hypergylcemia losartan 50 mg tablet 50 mg PO DAILY Qty: 90 0RF (DME) FreeStyle Jemima 3 Plus Sensor Device See Rx Instructions .Route Qty: 2 5RF Rx Instructions: To monitor blood sugars 4 times per day. Change sensor every 15 days (DME) pen needle, diabetic 31 gauge x 5/16 needle See Rx Instructions .Route Qty: 100 0RF Rx Instructions: Use to inject insulin once a day gabapentin 800 mg tablet 800 mg PO QID 30 Days Qty: 120 1RF tizanidine 4 mg tablet 4 mg PO Q12H 30 Days Qty: 60 0RF Rx Instructions: do not take concurrently with famotidine (DME) walker Misc See Rx Instructions .Route Qty: 1 0RF Rx Instructions: As directed dextrose [Glucose Gel] 40 % gel 10 g PO Q15M PRN (Reason: hypoglycemia) Qty: 300 0RF Rx Instructions: until symptoms of low blood sugar are controlled glucagon HCl [Glucagon (HCl) Emergency Kit] 1 mg recon soln 1 mg subcut Q20M PRN (Reason: hypoglycemia) Qty: 1 0RF Rx Instructions: until target blood sugar attained Stiolto Respimat 2.5-2.5 mcg/actuation mist 2 puff inhalation DAILY naloxone [Narcan] 4 mg/actuation spray,non-aerosol 4 mg intranasal Q2M PRN (Reason: opioid overdose) Qty: 2 0RF Rx Instructions: spray 1 dose into ONE nostril; alternate nostrils w each dose until help arrives insulin glargine [Lantus Solostar U-100 Insulin] 100 unit/mL (3 mL) insulin pen 16 unit subcut BEDTIME quetiapine 50 mg tablet 50 mg PO BID topiramate 25 mg tablet 50 mg PO BID Rx Instructions: take one tab twice daily for one week, then increase to 2 tabs twice daily sertraline 100 mg tablet 100 mg PO BID guaifenesin 100 mg/5 mL Liquid 100 mg PO Q4H PRN (Reason: Cough) Qty: 1000 0RF ipratropium-albuterol 0.5 mg-3 mg(2.5 mg base)/3 mL solution for nebulization 3 ml INHALATION QID PRN (Reason: Shortness Of Breath Or Wheezing) furosemide 20 mg tablet 40 mg PO DAILY prednisone 20 mg tablet 20 mg PO DAILY Rx Instructions: 40mg daily for 5 days, then 20mg daily for 5 days glipizide 5 mg tablet 5 mg PO DAILY Discharge Orders: Discharge Order (Routine); Ordered 01/28/25 Ordered By: Nora Hull Activity on Discharge: As tolerated Stand Alone Forms: Patient Portal Discharge page Print Language: Indonesian Care Plan Goals: See below Health Concerns: ESBL bacteremia COPD exacerbation UTI Acute on chronic hypoxic respiratory failure Plan of Treatment: You were admitted to the hospital for acute on chronic hypoxia and hypercapnia respiratory failure in the setting of acute exacerbation of COPD with likely concomitant acute on chronic systolic congestive heart failure. You were treated with bronchodilator therapy, IV steroids, and IV diuretics. During hospital stay you were found to have an infection in her blood likely coming from an infection in the urine. You had a midline placed for administering IV antibiotics at home and will be discharged with visiting nurse services. For ESBL bacteremia and UTI, you will be given ertapenem 1g IV push (administered over five minutes). This will given by your visiting nurse. You will be taking this for ten days, with last day set to be 8/10. Midline will be removed once antibiotics are finished. Follow up with PCP in 1-2 weeks. Continue all other home medications Assessment: See discharge summary Discharge Date/Time: 01/28/25 17:12
[2025-01-28 15:58] LABS: Glucose, Whole Blood 233 mg/dL (60-115)
--- NOTE | 2025-01-29 12:57 | P.F2F_ITS ---
Service Date Service Date: 01/28/25 Encounter Date of encounter: 02/28/25 Reasons for Services Signs and symptoms assessed: Pt found to have ESBL bacteremia and UTI requiring 10 days of IV antibiotics. Pt had midline placed in the hospital and will be discharged home and eating VNA services to administer IV antibiotics and manage her other medications. Reason for [facility]: administration of IV, SQ, or IM injection and medication treatment Homebound: Leaving the home is medically contraindicated at this time without the asist of a device and/or another person due th the listed conditions above and below. Reason homebound: unsteady gait / fall risk Certification: Based on the above findings, I certify that this patient is confined to the home and needs intermittent [facility] care, physical therapy and/or speech therapy, or continues to need occupational therapy. The patient is under my care, and I have initiated the establishment of the plan of care. The patient will be followed by a physician who will periodically review the plan of care. Time Spent With Patient Time: Total time managing care of this patient today ____ minutes.
== END 2025-01-28 17:12 | disposition home health service (06) | DRG 140 ==
LOC: HO.ED 01-25 02:34 → HO.EDOVER 01-25 02:43 → HO.IMC 01-25 07:51
PROVIDERS: Internal Medicine; Admitting Provider Internal Medicine; Emergency Provider Emergency Medicine; PCP Nurse Practitioner Family; Visit Provider Student in an Organized Health Care Education/Training Program
DX: J44.1 Chronic obstructive pulmonary disease with (acute) exacerbation (principal); J96.21 Acute and chronic respiratory failure with hypoxia; I50.23 Acute on chronic systolic (congestive) heart failure; R78.81 Bacteremia; J96.22 Acute and chronic respiratory failure with hypercapnia; E66.2 Morbid (severe) obesity with alveolar hypoventilation; E78.5 Hyperlipidemia, unspecified; I11.0 Hypertensive heart disease with heart failure; F17.210 Nicotine dependence, cigarettes, uncomplicated; Z71.6 Tobacco abuse counseling; F39 Unspecified mood [affective] disorder; K21.9 Gastro-esophageal reflux disease without esophagitis; B96.20 Unspecified Escherichia coli [E. coli] as the cause of diseases classified elsewhere; Z16.12 Extended spectrum beta lactamase (ESBL) resistance; Z20.822 Contact with and (suspected) exposure to COVID-19; Z79.82 Long term (current) use of aspirin; Z79.84 Long term (current) use of oral hypoglycemic drugs; Z79.52 Long term (current) use of systemic steroids; Z79.899 Other long term (current) drug therapy
CPT/HCPCS: 36410; 36415; 71045; 80048; 80076; 80307; 81001; 82803; 82947; 83605; 83735; 83880; 84484; 85025; 85027; 87040; 87077; 87086; 87088; 87186; 87205; 87637; 93005; 94660; 94799; 99285; C1751; J0696; J1171; J1335; J1650; J1938; J1956; J2185; J2270; J2543; J2919; J3475

== ENCOUNTER → 2025-01-24 23:21 | Outpatient (BNV) | payer OTHER, SELFPAY | PROVIDERS: Admitting Provider Internal Medicine; Emergency Provider Emergency Medicine; PCP Nurse Practitioner Family; Visit Provider Internal Medicine Cardiovascular Disease | DX: I49.1 Atrial premature depolarization (principal) | CPT/HCPCS: 93010 ==

== ENCOUNTER → 2025-01-24 23:21 | Outpatient (BNV) | payer OTHER, SELFPAY | PROVIDERS: Emergency Provider Emergency Medicine; PCP Nurse Practitioner Family; Visit Provider Radiology Diagnostic Radiology | DX: R06.02 Shortness of breath (principal) | CPT/HCPCS: 71045 ==

== ENCOUNTER 2025-01-25 02:12 | Outpatient (BNV) | payer OTHER, SELFPAY | END 2025-01-27 20:02 | PROVIDERS: Admitting Provider Internal Medicine; Emergency Provider Emergency Medicine; PCP Nurse Practitioner Family; Visit Provider Internal Medicine Cardiovascular Disease | DX: I49.3 Ventricular premature depolarization (principal); I51.7 Cardiomegaly; R00.0 Tachycardia, unspecified | CPT/HCPCS: 93010 ==

== ENCOUNTER → 2025-01-25 02:12 | Outpatient (BNV) | payer OTHER, SELFPAY | PROVIDERS: Admitting Provider Internal Medicine; Emergency Provider Emergency Medicine; PCP Nurse Practitioner Family; Visit Provider Internal Medicine | DX: R78.81 Bacteremia (principal) | CPT/HCPCS: 99232 ==

== ENCOUNTER → 2025-01-25 02:12 | Outpatient (BNV) | payer OTHER, SELFPAY | PROVIDERS: Admitting Provider Internal Medicine; Emergency Provider Emergency Medicine; PCP Nurse Practitioner Family; Visit Provider Internal Medicine | DX: J44.1 Chronic obstructive pulmonary disease with (acute) exacerbation (principal); J96.21 Acute and chronic respiratory failure with hypoxia; J96.22 Acute and chronic respiratory failure with hypercapnia | CPT/HCPCS: 99223; 99232; 99499 ==

== ENCOUNTER 2025-01-30 06:06 | Inpatient (IN) | payer OTHER, SELFPAY ==
[2025-01-30] VITALS (53 sets, daily range): BP systolic 74–184; BP diastolic 41–85; PULSE 72–112; RESP 16–25; TEMP 34–37.3; O2SAT 88–100; BMI 35.5; BMI 37.6; BMI 38.5
--- NOTE | ~2025-01-30 | XR_ITS ---
CLINICAL HISTORY: central line placement 1 view chest x-ray Comparison: 01/30/2025, 0700 Findings: Portions of the exam are obscured by overlying material. Endotracheal tube is 5.6 cm above the jg. Nasogastric tube tip is possibly in the body of the stomach. The exam is otherwise unchanged. IMPRESSION: 1. No significant change post intubation. This document has been electronically signed by: Larry Caballero MD on 01/30/2025 07:54:01
--- NOTE | ~2025-01-30 | XR_ITS ---
CLINICAL HISTORY: bradycardia 1 view chest x-ray Comparison: 01/30/2025, 0 700 Findings: No consolidation or effusion. Normal size heart. Endotracheal tube is 5.6 cm above the jg. Right IJ central line tip is likely in the SVC. No acute fracture. IMPRESSION: 1. No significant change from earlier exam. This document has been electronically signed by: Larry Caballero MD on 01/30/2025 08:21:41
--- NOTE | 2025-01-30 06:11 | ECG_ITS ---
Test Reason : SHORTNESS OF BREATH Blood Pressure : */* mmHG Vent. Rate : 107 BPM Atrial Rate : 107 BPM P-R Int : 126 ms QRS Dur : 88 ms QT Int : 344 ms P-R-T Axes : 51 157 51 degrees QTcB Int : 459 ms Sinus tachycardia with Premature atrial complexes Right ventricular hypertrophy Abnormal ECG When compared with ECG of 27-Jan-2025 20:02, MI interval has increased Referred By: Ly Bazan Electronically Signed By: PAUL VARGAS MD
--- NOTE | 2025-01-30 06:15 | ED.SOB ---
HPI - SOB/Dyspnea General Chief Complaint: Dyspnea Stated Complaint: SOB Time Seen by Provider: 01/30/25 06:11 Source: patient and EMS Mode of arrival: EMS Limitations: no limitations History of Present Illness ED Provider: Dr. Ly Bazan HPI Narrative: patient comes to the emergency room complaining of shortness of breath. According to the patient, family called because she was found sleepy than usual, excessive wheezing. According to EMS patient's lowest oxygen saturation was 88%, patient was given a DuoNeb. Patient states that her shortness of breath has gradually been getting worse over the last few days. Of note, patient was discharged from the hospital 2 days ago. patient has a PICC line, seems that patient is supposed to be taking until February 07 ertapenem 1 g daily for E coli Gram-negative bacteremia Related Data Home Medications ?Medication ?Instructions ?Recorded ?Confirmed tiotropium 2.5 mcg-olodaterol 2.5 2 puff inhalation DAILY 11/26/24 01/25/25 mcg/actuation mist for inhalation (Stiolto Respimat) insulin glargine 100 unit/mL (3 16 unit subcut BEDTIME 12/01/24 01/25/25 mL) subcutaneous pen (Lantus Solostar U-100 Insulin) quetiapine 50 mg tablet 50 mg PO BID 12/18/24 01/25/25 topiramate 25 mg tablet 50 mg PO BID 12/18/24 01/25/25 furosemide 20 mg tablet 40 mg PO DAILY 01/09/25 01/25/25 ipratropium 0.5 mg-albuterol 3 mg 3 ml inhalation QID PRN Shortness 01/09/25 01/25/25 (2.5 mg base)/3 mL nebulization Of Breath Or Wheezing soln sertraline 100 mg tablet 100 mg PO BID 01/12/25 01/25/25 glipizide 5 mg tablet 5 mg PO DAILY 01/25/25 01/25/25 prednisone 20 mg tablet 20 mg PO DAILY 01/25/25 01/25/25 Previous Rx's ?Medication ?Instructions ?Recorded walker #1 ea 07/14/24 Rollator walker #1 ea 09/16/24 cane #1 ea 09/16/24 pulse oximeter #1 ea 09/16/24 FreeStyle Jemima 3 [place] #1 ea 09/22/24 (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,bulk receiver,cont) albuterol sulfate 2.5 mg/3 mL 2.5 mg (3 mL) inhalation Q4H PRN 11/09/24 (0.083 %) solution for nebulization Shortness Of Breath/Wheezing #180 mL albuterol sulfate 90 mcg/actuation 2 puff inhalation Q6H PRN for 11/09/24 aerosol inhaler (Ventolin HFA) wheezing #1 ea theophylline 400 mg 400 mg PO BID 90 days #180 tabs 11/09/24 tablet,extended release 24 hr acetaminophen 650 mg 650 mg PO Q12H PRN pain 30 days 11/12/24 tablet,extended release #60 tabs aspirin 81 mg tablet,delayed 81 mg PO DAILY 90 days #90 tabs 11/12/24 release atorvastatin 40 mg tablet 40 mg PO BEDTIME #90 tabs 11/12/24 blood sugar diagnostic (FreeStyle #100 ea 11/12/24 Lite Strips) 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 meter (FreeStyle #1 ea 11/12/24 Lite Meter kit) calcium 500 mg (as 1 tab PO DAILY #90 tabs 11/12/24 carbonate)-vitamin D3 10 mcg (400 unit) tablet esomeprazole magnesium 40 mg 40 mg PO DAILY@0630 #90 caps 11/12/24 capsule,delayed release fexofenadine 180 mg tablet 180 mg PO DAILY #30 tabs 11/12/24 (Elisabeth Allergy) glucose 4 gram chewable tablet 16 g (4 x 4 gram) PO Q15M PRN 11/12/24 hypoglycemia #100 tabs ibuprofen 800 mg tablet 800 mg PO BID PRN Headache 30 days 11/12/24 #60 tabs lancets 28 gauge (FreeStyle #100 ea 11/12/24 Lancets) losartan 50 mg tablet 50 mg PO DAILY #90 tabs 11/12/24 dextrose 40 % oral gel (Glucose 10 g PO Q15M PRN hypoglycemia #300 11/13/24 Gel) grams glucagon HCl 1 mg solution for 1 mg subcut Q20M PRN hypoglycemia 11/13/24 injection (Glucagon (HCl) #1 ea Emergency Kit) FreeStyle Jemima 3 Plus Sensor #2 ea 11/17/24 (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 sensor) naloxone 4 mg/actuation nasal 4 mg intranasal Q2M PRN opioid 11/27/24 spray (Narcan) overdose #2 ea pen needle, diabetic 31 gauge x #100 ea 11/30/24 5/16 gabapentin 800 mg tablet 800 mg PO QID Pain 30 days #120 12/22/24 tabs guaifenesin 100 mg/5 mL oral liquid 100 mg (5 mL) PO Q4H PRN Cough 01/14/25 #1,000 mL tizanidine 4 mg tablet 4 mg PO Q12H muscle spasm 30 days 01/22/25 #60 tabs Allergies Allergy/AdvReac Type Severity Reaction Status Date / Time doxycycline Allergy Severe Swelling Verified 01/30/25 06:14 varenicline (From CHANTIX) Allergy Severe ANAPHYLAXIS Verified 01/30/25 06:14 azithromycin Allergy Intermediate Rash Verified 01/30/25 06:14 barium sulfate Allergy Intermediate angioedema Verified 01/30/25 06:14 cetirizine Allergy Mild Rash Verified 01/30/25 06:14 famotidine Allergy Mild Rash Verified 01/30/25 06:14 linaclotide (Linzess) Allergy Mild Rash Verified 01/30/25 06:14 Review of Systems Review of Systems: complaining of difficulty breathing Yes Unobtainable due to mental condition PMFSH Past Medical History Medical History Chronic lung disease Chronic lung disease BAHMAN (generalized anxiety disorder) COPD (chronic obstructive pulmonary disease) Cocaine use disorder Cocaine abuse GERD (gastroesophageal reflux disease) Constipation Non-insulin dependent type 2 diabetes mellitus HENRY (obstructive sleep apnea) Acute exacerbation of chronic obstructive airways disease Asthma with exacerbation Obesity hypoventilation syndrome Chronic lung disease Hypoxic respiratory failure Nocturnal hypoxemia Diabetes mellitus COPD exacerbation Crack cocaine use Hyperkalemia Metabolic acidosis Leukocytosis Chest discomfort Chronic renal failure, stage 2 (mild) SOB (shortness of breath) Asthma Smoker Rotator cuff tendonitis GERD (gastroesophageal reflux disease) Chronic idiopathic constipation Bustos's esophagus Depression High triglycerides Gastroparesis Carpal tunnel syndrome of right wrist Nausea & vomiting Hernia Acute and chronic respiratory failure, unspecified whether with hypoxia or hypercapnia HTN (hypertension) Obesity (BMI 30-39.9) Knee pain, bilateral Surgical History History of cholecystectomy (~1988) History of carpal tunnel release Hx of tubal ligation History of pubovaginal sling (~2015) History of umbilical hernia repair (~2001) Hx of section History of open reduction and internal fixation (ORIF) procedure History of esophagogastroduodenoscopy (EGD) Family History Family History Father Heart disease HENRY (obstructive sleep apnea) Family history of breast cancer Mother Asthma Emphysema, unspecified Bronchitis Smoker Alcoholism Bone marrow disease Maternal Grandmother Diabetes Social History Social History Household Members: Children Household Members Other:: daughter Housing: House Housing Other:: 3 family house Are you a primary health care assistant to a significant other at home: No Do you presently have visiting nurse or other home services: Yes Unable to assess alcohol history related to: Unknown Alcohol intake: never Comment: refusing socks Patient Tobacco Use Status: Current everyday Tobacco user Tobacco use type: Cigarette Cigarette Packs Per Day: 0.5 Cigarettes Per Day: 10 Years Smoked: 40 e-Cigarette/Vaping Use: Currently Using Second Hand Smoke Exposure: Yes Substance Use Type: Crack/Cocaine Advance Directives Date on File: 12/19/23 Do you have a plan to hurt others: No Plan service: No Current occupational status: disabled 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 Physical Exam Exam: Exam: Appearance: Alert. but very somnolent, struggling to breathe, appearing much worse than previous ER visits Eyes: Pupils equal, round and reactive to light. ENT: Pharynx normal. Neck: Normal inspection. Neck supple. No lymph nodes noted. No crepitus CVS: Normal heart rate and rhythm. Pulses normal. Normal S1 and S2 Respiratory: patient is in respiratory distress, wheezing, very tight, minimal air movement. Abdomen: Soft and nontender. No rigidity. No distention. Skin: Skin warm and dry. Normal skin color. Normal skin turgor. Extremities: No lower extremity edema. No Lacerations. No Rash Neuro: Oriented X 3. No motor deficit. No sensory deficit. Moving all extremities. No slurred speech. CN 2 through 12 grossly intact Psych: calm, cooperative, Somnolent Vital Signs: Vital Signs: Last Vital Signs Temp 99.1 F 01/30/25 06:10 Pulse 95 01/30/25 07:55 Resp 18 01/30/25 07:55 BP 129/69 01/30/25 07:55 Pulse Ox 95 01/30/25 07:55 O2 Del Method Mechanical Ventil ation 01/30/25 07:55 FiO2 40 01/30/25 07:55 Oxygen Flow Rate 3 01/30/25 06:10 BMI result Body Mass Index 35.5 Course Course Course Narrative: today on arrival, patient's seems to be more somnolent than usual. Patient is currently undergoing treatment with IV/ PICC line ertapenem once a day . Patient is receiving IV fluids based on ideal weight of 45 kg, patient is obese. Patient was given her dose of today with ertapenem. At this time, we will not change her antibiotics, ID consult will be required patient receiving Solu-Medrol, magnesium, nebulization treatments. Patient is supposed to be on BiPAP at night, patient known to be noncompliant with her BiPAP at this time, rescue BiPAP has been started. 06:29. Patient is pretty somnolent. If patient continues to declined, she may have to be intubated. All of patient's labs and imaging pending Medications Administered Generic Name Dose Route Start Last Admin Trade Name Freq PRN Reason Stop Dose Admin Magnesium Sulfate 2 gm in 50 mls @ 25 mls/hr 01/30/25 06:11 01/30/25 07:51 Magnesium Sulfate/H2o IV 01/30/25 08:10 Infused ONCE ONE Infusion Propofol 1,000 mg in 100 mls @ 0 mls/hr 01/30/25 07:45 01/30/25 07:46 Diprivan IVCONT 30 mcg/kg/min .Q0M [place] 14.85 mls/hr Protocol Administration Per Protocol Discontinued Medications Generic Name Dose Route Start Last Admin Trade Name Freq PRN Reason Stop Dose Admin Albuterol Sulfate 5 mg/ 7.5 mg 01/30/25 06:26 01/30/25 06:27 Albuterol Sulfate 2.5 mg INHALE 01/30/25 06:27 7.5 mg ONCE ONE Administration Diazepam 10 mg 01/30/25 07:05 01/30/25 07:13 Diazepam 10 Mg/2 Ml Cartridge IM 01/30/25 07:06 10 mg STAT STA Administration Diazepam 10 mg 01/30/25 06:45 01/30/25 07:13 Diazepam 10 Mg/2 Ml [place]ridge IM 01/30/25 06:46 10 mg STAT STA Administration Ertapenem 1 gm 01/30/25 06:25 01/30/25 07:15 Ertapenem Sodium 1 Gm Vial IVPUSH 01/30/25 06:26 1 gm ONCE ONE Administration Etomidate 20 mg 01/30/25 07:43 01/30/25 07:12 Etomidate 20 Mg/10 Ml Vial IVPUSH 01/30/25 07:44 20 mg NOW STA Administration Sodium Chloride 1,000 mls @ 999 mls/hr 01/30/25 06:21 01/30/25 07:10 Ns IVCONT 01/30/25 07:21 999 mls/hr .Q1H1M ONE Administration Methylprednisolone Sodium Succinate 125 mg 01/30/25 06:11 01/30/25 07:19 Methylprednisolone Sod Succ 125 Mg/2 Ml Vial IVPUSH 01/30/25 06:12 125 mg ONCE ONE Administration Rocuronium [place] 50 mg 01/30/25 07:42 01/30/25 07:15 Rocuronium [place] 50 Mg/5 Ml Vial IVPUSH 01/30/25 07:43 50 mg ONCE ONE Administration Medical Decision Making Medical Decision Making MDM Narrative: Patient was very somnolent, difficult to arouse. Patient needed intubation. However, patient has very difficult access. Her PICC line is not flushing a central line in the right IJ was placed, chest x-ray was done to confirm placement of the central line. usually when we tried BiPAP, patient does, round and starts feeling better and breathing much more comfortably. However, this time, patient actually decompensated. patient arrived significantly somnolent, worse than usual ER visits. We gave her a chance with BiPAP. However, she quickly became extremely very lethargic, unresponsive and needed to be intubated. Patient had several blood pressure drops, secondary to intubation medication using propofol, not due to sepsis. Chest x-ray after intubation shows the ET tube in good position, OG-tube in place as well patient is known to have frequent COPD exacerbation secondary to cocaine abuse. I discussed the patient with Dr. Vee from the ICU, patient being admitted. Differential Diagnosis Differential Diagnoses: The differential diagnosis associated with the presentation includes ( COPD exacerbation, pneumonia, cocaine abuse) Admission/Observation Consideration of admission/observation: Escalation of care including admission/observation considered Consult Healthcare Provider Management of the patient was discussed with: Setter Machine Lab Data MDM Lab Attestation statement: I reviewed the patient's lab results. 01/30/25 07:04 01/30/25 07:04 Labs: Lab Results 01/30/25 01/30/25 Range/Units 07:04 07:13 WBC 17.8 H (4.8-10.8) X10*3/uL RBC 3.94 L (4.20-5.50) X10*6/uL Hgb 8.0 L (12.0-16.0) g/dl Hct 28.7 L (37.0-47.0) % MCV 72.8 L (80.0-98.0) fL MCH 20.3 L (27.0-33.0) pg MCHC 27.9 L (31.0-35.0) g/dl RDW 17.7 H (11.0-16.0) % Plt Count 401 H (160-400) X10*3/uL MPV 9.1 L (9.4-12.3) fL Immature Gran % (Auto) 0.7 H (0.0-0.4) % Neut % (Auto) 67.6 (45-73) % Lymph % (Auto) 22.6 (20-40) % [place] % (Auto) 8.2 (2-11) % Eos % (Auto) 0.7 (0-4) % Baso % (Auto) 0.2 (0-2) % Lymph # (Auto) 4.0 (1.2-4.9) X10*3/uL [place] # (Auto) 1.5 H (0.1-1.2) X10*3/uL Eos # (Auto) 0.1 (0.0-0.4) X10*3/uL Baso # (Auto) 0.0 (0.0-0.2) X10*3/uL Abs Immat Gran (auto) 0.12 H (0.00-0.03) X10*3/uL Absolute Neuts (auto) 12.1 H (2.0-8.3) x10*3/uL Absolute Nucleated RBC 0.020 H (0.0-0.012) X10*3/uL Nucleated RBC % (auto) 0.1 (0.0-0.2) /100WBC VBG pH 7.27 L (7.32-7.43) VBG pCO2 87 mmHg VBG pO2 104 mmHg VBG HCO3 40 H (22-26) mmol/L VBG O2 Saturation TNP VBG Base Excess 10.7 mmol/L Sodium 141 (135-145) mmol/L Potassium 4.2 (3.3-5.1) mmol/L Chloride 98 (96-108) mmol/L Carbon Dioxide 35 H (22-29) mmol/L Anion Gap 12 (12-20) BUN 22 H (9-16) mg/dL Creatinine 0.72 (0.5-1.4) mg/dL Estim Creat Clear Calc 83.0 Estimated GFR > 60 Random Glucose 143 H (60-115) mg/dL Lactic Acid 0.7 (0.5-2.0) mmol/L Calcium 8.6 (8.4-10.2) mg/dL Magnesium 1.9 (1.6-2.6) mg/dL Total Bilirubin 0.2 (0.0-1.0) mg/dL Direct Bilirubin < 0.2 (0.0-0.5) mg/dL AST 14 (5-31) U/L ALT 18 (0-31) U/L Alkaline Phosphatase 101 (39-117) U/L Troponin I High Sens 25.6 H (<3.5-17.0) ng/L B-Natriuretic Peptide 78 (<100) pg/mL Total Protein 6.3 L (6.5-8.0) g/dL Albumin 3.7 (3.5-5.0) g/dL Influenza Type A (PCR) NEGATIVE (Negative) Influenza Type B (PCR) NEGATIVE (Negative) RSV RNA Qual (PCR) NEGATIVE (Negative) SARS-CoV-2 RNA (RT-PCR) NEGATIVE (Negative) Independent Interpretation I performed an independent interpretation of an: Plain X-Ray Radiology Impression Discussion of test interpretation with radiology: I have reviewed the radiologist's reading. Radiologist Impression: Portions of the exam are obscured by overlying material. Endotracheal tube is 5.6 cm above the jg. Nasogastric tube tip is possibly in the body of the stomach. The exam is otherwise unchanged. Independent Historian Clinical information obtained from an independent historian. History obtained from or confirmed by: EMS Procedures Central Line Placement Right IJ: Time Out Performed: Yes Patient Placed on Monitor/Pulse Ox: Yes MD Prep: mask, gown and gloves Central Line Prep: Chlorhexidine scrub Local Anesthetic: lidocaine 1% Amount of anesthesia used (mL): 5 Ultrasound Used for Placement: Yes Central Line Lumen Inserted: triple Post Procedure: sutured in place, good blood return, all ports aspirated, flushed, capped and sterile dressing applied Post Procedure X-Ray: tip of catheter in good position Patient Tolerated Procedure: well and no complications Complications: none Intubation Intubation Type:: Emergency Endotracheal Intubation Intubation Date:: 01/30/25 sedative: Etomidate Mg Given: 20 paralytic: Rocuronium Mg Given: 50 Laryngoscope: other ( GlideScope) ET Tube Size: 7.5 ET Tube Uncuffed: No Tube Secured Depth (cm): 24 Tube Secured Location: lips Tube Placement Confirmation: visualized tube passing through cords, equal breath sounds bilaterally, no breath sounds over epigastrium and confirmation by capnometry Patient Tolerated Procedure: well Intubation Complications: none Critical Care Time Critical Care Time Critical Care Time: Yes Total Critical Care Time: 90 Attestation: I have personally provided critical care time. Time includes review of lab data, radiology results, discussion with consultants, and monitoring for potential decompensation. Intervention performed as documented. Discharge Plan Discharge Clinical Impression: Acute hypercapnic respiratory failure Patient Disposition: Admitted As Inpatient Print Language: Occitan
[2025-01-30] MEDS: Albuterol Sulfate 5 MG, Albuterol Sulfate (0.083%) 2.5 MG 7.5 MG INHALE (06:27)
--- NOTE | 2025-01-30 06:34 | PC.NURSE ---
pt noted to have midline from previous visit, midline noted to have redness and brusing around site, midline unable to draw back blood at this time, attempting to place iv lines as pt is hard stick
--- NOTE | 2025-01-30 07:08 | PC.NURSE ---
pt hard stick at this time, at bedside placing central line. central line placed into pt right neck at this time.
[2025-01-30 07:12] LABS: MANUAL DIFF FLAG NO
[2025-01-30] MEDS: Etomidate 20 MG/10 ML VIAL IVPUSH (07:12)
[2025-01-30] MEDS: diazePAM 10 MG/2 ML CARTRIDGE IM ×2 (07:13)
--- NOTE | 2025-01-30 07:13 | PC.NURSE ---
verbal orders placed per at this time for two doses of IM Valium 10mg. remains at bedside.
--- NOTE | 2025-01-30 07:14 | PC.NURSE ---
20 etomoadate given at 0712 50 avi given at 0715 0717- 7.5 tube, 25 at lip. positive color change noted and bilat lung sounds heard
[2025-01-30 07:30] LABS: Alanine Aminotransferase 18 U/L (0-31); Albumin Level 3.7 g/dL (3.5-5.0); Alkaline Phosphatase 101 U/L (39-117); Anion Gap 12 (12-20); Aspartate Amino Transferase 14 U/L (5-31); Blood Urea Nitrogen 22 mg/dL (9-16); Calcium 8.6 mg/dL (8.4-10.2); Carbon Dioxide 35 mmol/L (22-29); Chloride 98 mmol/L (96-108); Creatinine Clr Calc Pharmacy 83.0; Estimated Glomerular Filt Rate > 60; Magnesium 1.9 mg/dL (1.6-2.6); Potassium 4.2 mmol/L (3.3-5.1); Sodium 141 mmol/L (135-145); Total Protein 6.3 g/dL (6.5-8.0)
[2025-01-30] MEDS: Magnesium Sulfate/H2O 2 GM/50 ML PIGGYBACK IV (07:30)
[2025-01-30 07:32] LABS: Hematocrit 28.7 % (37.0-47.0); Hemoglobin 8.0 g/dl (12.0-16.0); Imm Gran Abs Auto 0.12 X10*3/uL (0.00-0.03); Imm Gran Pct Auto 0.7 % (0.0-0.4); Lymphocytes Absolute Auto 4.0 X10*3/uL (1.2-4.9); Mean Corpuscular HGB Conc 27.9 g/dl (31.0-35.0); Mean Corpuscular Hemoglobin 20.3 pg (27.0-33.0); Mean Corpuscular Volume 72.8 fL (80.0-98.0); NRBC Abs Auto 0.020 X10*3/uL (0.0-0.012); NRBC Pct Auto 0.1 /100WBC (0.0-0.2); Platelet Count 401 X10*3/uL (160-400); Red Blood Count 3.94 X10*6/uL (4.20-5.50); White Blood Count 17.8 X10*3/uL (4.8-10.8)
[2025-01-30 07:33] LABS: B Type Natriuretic Peptide 78 pg/mL (<100)
[2025-01-30 07:36] LABS: Troponin-I High Sensitivity 25.6 ng/L (<3.5-17.0)
[2025-01-30 07:40] LABS: VBG HCO3 40 mmol/L (22-26)
--- NOTE | 2025-01-30 07:43 | PC.NURSE ---
Pt currently well sedated, vent settings : Tital volume 350, rate 18, Peep 8, 40 FiO2. Bp's remain low and NorEpi has been titrated up aggressively with MD consent at bedside.
--- NOTE | 2025-01-30 07:46 | PC.NURSE ---
0747 BP is stable, propfol begun. pt remains well sedated.
[2025-01-30 07:51] LABS: Resp Syncy Virus RNA Qual PCR NEGATIVE (Negative); SARS COV2 PCR INHOUSE NEGATIVE (Negative)
--- NOTE | 2025-01-30 08:00 | PC.NURSE ---
Pt continues to be well sedated. awaits ICU transfer. NSR on monitor LS audible all gallagher, OG tube was placed just after intubation. no abd distention, skin pwd, pt tolerated rolling W/O issue
--- NOTE | 2025-01-30 08:31 | PC.NURSE ---
update via phone to daughter, jaja. Jaja states that pt is on 2L home O2 with very long tubing, that she has been taking abx since dicharge. had diff breathing yesterday and became somulent this am.
--- NOTE | 2025-01-30 08:45 | PC.NURSE ---
RN to [facility]DR[facility] Ordaz in ICU. No admission orders yet.
[2025-01-30] MEDS: fentaNYL citrate/NS 1,000 MCG/100 ML PLAST..BAG 5 MCG IVCONT ×2 (09:41→23:28)
[2025-01-30] MEDS: Albumin Human 25 % 100 ML 133.33 ML IV ×2 (09:41→11:05)
[2025-01-30] MEDS: Albuterol/Iprat 2.5/0.5MG 3 ML AMPUL.NEB INHALE ×4 (11:05→23:48)
[2025-01-30 11:20] LABS: Glucose, Whole Blood 301 mg/dL (60-115)
[2025-01-30 11:37] LABS: Venous Blood Gas Refer to POC result
--- NOTE | 2025-01-30 11:40 | PHA.MEDREC ---
Pharmacy Consult ? Medication Reconciliation Pharmacy has completed the medication reconciliation, pt discharged 01/28/25, utilized discharge packet - previous med rec completed by Moira.
--- NOTE | 2025-01-30 12:07 | P.HPCC_ITS ---
History of Present Illness Date of Service: 01/30/25 Chief Complaint: Altered sensorium 54-year-old lady who is very noncompliant with treatment, drug abuser, who has 7th admission in the past 3 months with past medical history of chronic respiratory failure secondary to COPD on home oxygen, HENRY, obesity hypoventilation syndrome, hypertension, diabetes mellitus, heart failure with preserved ejection fraction, GERD, Bustos's esophagus is brought into the ED after she was found unresponsive. She was discharged from the hospital 2 days ago, known to use IV drugs with pending urine drug screen. In the ED VBG showed pH of 7.27 with pCO2 in the 80s, placed on BiPAP but her mentation was very poor so had to be intubated and put on ventilator support so he is admitted to medical ICU. Post intubation she is also hypotensive needing Levophed support Review of Systems 2 Review of Systems: Unable to obtain as patient is on ventilator [facility] Past Medical History Medical History Chronic lung disease Chronic lung disease BAHMAN (generalized anxiety disorder) COPD (chronic obstructive pulmonary disease) Cocaine use disorder Cocaine abuse GERD (gastroesophageal reflux disease) Constipation Non-insulin dependent type 2 diabetes mellitus HENRY (obstructive sleep apnea) Acute exacerbation of chronic obstructive airways disease Asthma with exacerbation Obesity hypoventilation syndrome Chronic lung disease Hypoxic respiratory failure Nocturnal hypoxemia Diabetes mellitus COPD exacerbation Crack cocaine use Hyperkalemia Metabolic acidosis Leukocytosis Chest discomfort Chronic renal failure, stage 2 (mild) SOB (shortness of breath) Asthma Smoker Rotator cuff tendonitis GERD (gastroesophageal reflux disease) Chronic idiopathic constipation Bustos's esophagus Depression High triglycerides Gastroparesis Carpal tunnel syndrome of right wrist Nausea & vomiting Hernia Acute and chronic respiratory failure, unspecified whether with hypoxia or hypercapnia HTN (hypertension) Obesity (BMI 30-39.9) Knee pain, bilateral Family History Family History Father Heart disease HENRY (obstructive sleep apnea) Family history of breast cancer Mother Asthma Emphysema, unspecified Bronchitis Smoker Alcoholism Bone marrow disease Maternal Grandmother Diabetes Surgical History Surgical History History of cholecystectomy (~1988) History of carpal tunnel release Hx of tubal ligation History of pubovaginal sling (~2015) History of umbilical hernia repair (~2001) Hx of section History of open reduction and internal fixation (ORIF) procedure History of esophagogastroduodenoscopy (EGD) Social History Social History Household Members: Children Household Members Other:: daughter Housing: House Housing Other:: 3 family house Are you a primary dog daycare provider to a significant other at home: No Do you presently have visiting nurse or other home services: Yes Unable to assess alcohol history related to: Unknown Alcohol intake: never Comment: refusing socks Patient Tobacco Use Status: Current everyday Tobacco user Tobacco use type: Cigarette Cigarette Packs Per Day: 0.5 Cigarettes Per Day: 10 Years Smoked: 40 e-Cigarette/Vaping Use: Currently Using Second Hand Smoke Exposure: Yes Substance Use Type: Crack/Cocaine Advance Directives: Yes Advance Directives on File: Yes Advance Directives Date on File: 12/19/23 Do you have a plan to hurt others: No Plan service: No Current occupational status: disabled 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 Meds Allergies Allergy/AdvReac Type Severity Reaction Status Date / Time doxycycline Allergy Severe Swelling Verified 01/30/25 06:14 varenicline (From CHANTIX) Allergy Severe ANAPHYLAXIS Verified 01/30/25 06:14 azithromycin Allergy Intermediate Rash Verified 01/30/25 06:14 barium sulfate Allergy Intermediate angioedema Verified 01/30/25 06:14 cetirizine Allergy Mild Rash Verified 01/30/25 06:14 famotidine Allergy Mild Rash Verified 01/30/25 06:14 linaclotide (Linzess) Allergy Mild Rash Verified 01/30/25 06:14 Active Medications: Current Medications Acetaminophen (Acetaminophen 325 Mg Tablet) 650 mg PO Q6H PRN PRN Reason: Fever >100.4 Albuterol/Ipratropium (Albuterol/Iprat 2.5/0.5mg 3 Ml Ampul.Neb) 3 ml INHALE RQ4H [place] Last Admin: 01/30/25 11:05 Dose: 3 ml Aspirin (Aspirin Enteric Coated 81 Mg Tablet.Dr) 81 mg PO DAILY [place] Atorvastatin Calcium (Atorvastatin Calcium 40 Mg Tablet) 40 mg PO BEDTIME [place] Enoxaparin Sodium (Enoxaparin Sodium 40 Mg/0.4 Ml Syringe) 40 mg SUBCUT Q24H [facility] Last Admin: 01/30/25 09:44 Dose: 40 mg Gabapentin (Gabapentin 400 Mg Capsule) 800 mg PO QID [facility] Propofol (Diprivan) 1,000 mg in 100 mls @ 0 mls/hr IVCONT .Q0M [facility]; Protocol Last Admin: 01/30/25 11:57 Dose: 50 mcg/kg/min, 24.75 mls/hr Norepinephrine Bitartrate (Levophed) 8 mg in 250 mls @ 0 mls/hr IVCONT .Q0M [facility]; Protocol Last Titration: 01/30/25 11:11 Dose: 0.1 mcg/kg/min, 15.47 mls/hr Fentanyl (Sublimaze/Ns) 1,000 mcg in 100 mls @ 5 mls/hr IVCONT .Q20H [facility]; Protocol Last Titration: 01/30/25 10:15 Dose: 50 mcg/hr, 5 mls/hr Meropenem (Meropenem 1 Gm Vial) 1 gm IV Q8H [facility] Last Admin: 01/30/25 12:02 Dose: 1 gm Methylprednisolone Sodium Succinate (Methylprednisolone Sod Succ 40 Mg/Ml Vial) 40 mg IVPUSH DAILY [facility] Naloxone HCl (Naloxone Hcl 0.4 Mg/Ml Vial) 0.2 mg IVPUSH Q2M PRN PRN Reason: Excessive sedation or RR < 8 Ondansetron HCl (Ondansetron Hcl 4 Mg/2 Ml Vial) 4 mg IVPUSH Q8H PRN PRN Reason: Nausea and Vomiting Pantoprazole Sodium (Pantoprazole Sodium 40 Mg/10 Ml Vial) 40 mg IVPUSH BID@0630,1630 [facility] Quetiapine Fumarate (Quetiapine Fumarate 50 Mg Tablet) 50 mg PO BID [facility] Sertraline HCl (Sertraline Hcl 100 Mg Tablet) 100 mg PO BID [facility] Tizanidine HCl (Tizanidine Hcl 4 Mg Tablet) 4 mg PO Q12H [facility] Topiramate (Topiramate 25 Mg Tablet) 50 mg PO BID [facility] Home Medications ?Medication ?Instructions ?Recorded ?Confirmed ?Last Taken ?Type tiotropium 2.5 mcg-olodaterol 2.5 2 puff inhalation DA PHIL 11/26/24 01/30/25 01/24/25 History mcg/actuation mist for inhalation (Stiolto Respimat) insulin glargine 100 unit/mL (3 16 unit subcut BEDTIME 12/01/24 01/30/25 01/24/25 History mL) subcutaneous pen (Lantus Solostar U-100 Insulin) quetiapine 50 mg tablet 50 mg PO BID 12/18/2401/24/25 History topiramate 25 mg tablet 50 mg PO BID 12/18/2401/24/25 History furosemide 20 mg tablet 40 mg PO DAILY 01/09/25 08/0 08/2501/24/25 History ipratropium 0.5 mg-albuterol 3 mg 3 ml inhalation QID PRN Shortness 01/09/25 01/30/25 Unknown History (2.5 mg base)/3 mL nebulization Of Breath Or Wheezing soln sertraline 100 mg tablet 100 mg PO BID 01/12/2501/3001/24/25 History glipizide 5 mg tablet 5 mg PO DAILY 01/25/2501/3001/24/25 History prednisone 20 mg tablet 20 mg PO DAILY 01/25/25 08/0 08/2501/24/25 History Physical Exam 2 Vital Signs: Vital Signs: Last Vital Signs Temp 99.1 F 01/30/25 06:10 Pulse 89 01/30/25 11:11 Resp 17 01/30/25 11:07 BP 130/64 01/30/25 11:11 Pulse Ox 93 01/30/25 11:00 O2 Del Method Mechanical Ventil ation 01/30/25 11:00 O2 Flow Rate 18 01/30/25 10:00 FiO2 30 01/30/25 11:13 Oxygen Flow Rate 3 01/30/25 06:10 BMI result Body Mass Index 37.6 General: Morbidly obese lady in severe acute distress, chronically ill appearing and tired appearing Nutritional Appearance: well nourished and overweight Eyes: appearance normal, both eyes and all related structures; Alignment and Position: alignment normal and position normal Neck: No lymphadenopathy, no thyromegaly Resp: bilateral air entry equal, significant air entry present bilaterally, occasional wheeze heard Cardio: Regular rate, regular rhythm; Heart sounds: S1 normal heart sound present and S2 normal heart sound present GI: soft, nontender, no guarding, no hepatosplenomegaly : bladder normal to inspection, bladder normal to palpation, no renal angle tenderness Skin: no rashes or lesions noted and elasticity normal Neuro: Sedated, no focal deficits Results Labs 01/30/25 07:04 01/30/25 07:04 Labs: Laboratory Results - last 24 hr 01/30/25 01/30/25 01/30/25 07:04 07:13 09:22 MCV 72.8 L MCH 20.3 L MCHC 27.9 L RDW 17.7 H Plt Count 401 H MPV 9.1 L Immature Gran % (Auto) 0.7 H Neut % (Auto) 67.6 Lymph % (Auto) 22.6 [place] % (Auto) 8.2 Eos % (Auto) 0.7 Baso % (Auto) 0.2 Lymph # (Auto) 4.0 [place] # (Auto) 1.5 H Eos # (Auto) 0.1 Baso # (Auto) 0.0 Abs Immat Gran (auto) 0.12 H Absolute Neuts (auto) 12.1 H Absolute Nucleated RBC 0.020 H Nucleated RBC % (auto) 0.1 VBG pH 7.27 L VBG pCO2 87 VBG pO2 104 VBG HCO3 40 H VBG O2 Saturation TNP VBG Base Excess 10.7 Anion Gap 12 Estim Creat Clear Calc 83.0 Estimated GFR > 60 POC Glucose Random Glucose 143 H Lactic Acid 0.7 Calcium 8.6 Phosphorus 3.5 Magnesium 1.9 Total Bilirubin 0.2 Direct Bilirubin < 0.2 AST 14 ALT 18 Alkaline Phosphatase 101 B-Natriuretic Peptide 78 Total Protein 6.3 L Albumin 3.7 Influenza Type A (PCR) NEGATIVE Influenza Type B (PCR) NEGATIVE RSV RNA Qual (PCR) NEGATIVE SARS-CoV-2 RNA (RT-PCR) NEGATIVE 01/30/25 11:15 MCV MCH MCHC RDW Plt Count MPV Immature Gran % (Auto) Neut % (Auto) Lymph % (Auto) [place] % (Auto) Eos % (Auto) Baso % (Auto) Lymph # (Auto) [place] # (Auto) Eos # (Auto) Baso # (Auto) Abs Immat Gran (auto) Absolute Neuts (auto) Absolute Nucleated RBC Nucleated RBC % (auto) VBG pH VBG pCO2 VBG pO2 VBG HCO3 VBG O2 Saturation VBG Base Excess Anion Gap Estim Creat Clear Calc Estimated GFR POC Glucose 301 H Random Glucose Lactic Acid Calcium Phosphorus Magnesium Total Bilirubin Direct Bilirubin AST ALT Alkaline Phosphatase B-Natriuretic Peptide Total Protein Albumin Influenza Type A (PCR) Influenza Type B (PCR) RSV RNA Qual (PCR) SARS-CoV-2 RNA (RT-PCR) Assessment and Plan (1) Crack cocaine use: Status: Acute (2) Hyperglycemia due to type 2 diabetes mellitus: Status: Acute (3) Diabetes mellitus: Qualifiers: Diabetes mellitus type: type 2 Diabetes mellitus long-term insulin use: without long-term use Diabetes mellitus complication status: with neurologic complications Diabetes mellitus complication detail: with polyneuropathy Q ualified Code(s): E11.42 - Type 2 diabetes mellitus with diabetic polyneuropathy Status: Acute (4) COPD exacerbation: Status: Acute (5) Acute hypoxemic respiratory failure: Status: Acute (6) Acute exacerbation of chronic obstructive pulmonary disease: Status: Acute Plan Neuro: Acute encephalopathy possibly due to toxic metabolic encephalopathy possibly secondary to drug overdose. Urine drug screen pending On propofol for sedation, as needed fentanyl for analgesia Close neurological status monitoring in the ICU every hour Cardiac: Cardiogenic Shock: Possibly secondary to positive pressure ventilation On Levophed support, titrate Levophed to keep map above 65 mm Hg She has history of heart failure with preserved ejection fraction Respiratory: Acute hypoxemic respiratory failure due to COPD exacerbation Currently on ventilator support On PRVC mode FiO2 40%, PEEP 8, TV 360, RR 20 Peak pressures and plateau pressures are under the curve Ventilator management bundle with head end elevation, aspiration precaution, chlorhexidine mouthwash, daily awakening trials, daily spontaneous breathing trials Started the patient on duo nebs [id number], Solu-Medrol 40 mg daily as her air entry is not bad GI: We will start on tube feeds Renal: Renal function normal We will closely monitor I's and O's Avoid nephrotoxic medications Heme: Chronic anemia, closely monitor H&H, transfuse for hemoglobin less than 7 grams/deciliter Endocrine: Diabetes mellitus: We will start the patient on Lantus 20 units daily, with sliding scale insulin Blood sugars not under control Sliding scale insulin as needed Infectious disease: We will send pancultures Patient has history of ESBL UTI, was treated for ESBL UTI during the previous admission Started the patient on ertapenem, we will get MRSA nares screen if positive we will add vanc Musculoskeletal: Decubitus ulcer prevention protocol Lines: Peripheral No Ni Prophylaxis: Lovenox, pantoprazole Total critical care time spent is about 60 minutes on evaluation, admission of the patient to the critical care unit, formulation of critical care plan and management, ventilator management, sedation management, vasopressor management, close hemodynamic monitoring at this time is excluding any procedural time
[2025-01-30] MEDS: Insulin Glargine,Hum.rec.anlog 100 UNIT/ML 10 ML VIAL 20 UNIT SUBCUT (12:26)
[2025-01-30 12:46] LABS: Appearance Urine Clear; Glucose Urine UA Negative (Negative); PH 7.0 (5.0-9.0); Specific Gravity - Urine 1.010 (1.005-1.025)
[2025-01-30 12:55] LABS: Cannabinoid Screen Urine Not Detected (Not Detect)
[2025-01-30 13:55] LABS: Chlamydia pneumoniae PCR Not Detected (Not Detect.); Coronavirus 229E PCR Not Detected (Not Detect.); Coronavirus HKU1 PCR Not Detected (Not Detect.); Coronavirus NL63 PCR Not Detected (Not Detect.); Coronavirus OC43 PCR Not Detected (Not Detect.); RSV PCR Not Detected (Not Detect.); Rhino/Enterovirus PCR Detected (Not Detect.)
[2025-01-30 13:59] LABS: Influenza A H1 PCR Not Detected (Not Detect.); Influenza A H1-2009 PCR Not Detected (Not Detect.); Influenza A H3 PCR Not Detected (Not Detect.); SARS-CoV-2 PCR Not Detected (Not Detect.)
[2025-01-30 14:00] LABS: MRSA Nasal PCR NEGATIVE (Negative); SA Nasal PCR NEGATIVE (Negative)
[2025-01-30] MEDS: Chlorhexidine Gluc Oral Rinse 15 ML MOUTHWASH BUCCAL ×2 (14:08→20:12)
[2025-01-30 17:30] LABS: Glucose, Whole Blood 260 mg/dL (60-115)
--- NOTE | 2025-01-30 18:09 | PC.NURSE ---
Patient to ICU from ED at approx. 1000- intubated and sedated with propofol and fentanyl gtts per AUG. +C/G/P, BARROW, opens eyes occasionally, does not track or follow commands. SR on tele, HR 70s-90s with rare PVCs. Levophed gtt running, titrated per MAR. Tolerating ACVC 16/350/8/30%, occasionally coughing- small amt. thick cream inline sputum. OGT patent, TF started per order. Straight cathed @1100 for 950cc- Urines sent to lab, see results. Bladder scanned at 1700 for 950cc, straight cathed with 1L cyu. next bladder scan due at 2300 if pt. does not spontaneously void. Nasal swabs obtained and sent to lab- see results. Skin intact but with generalized scattered bruising. This RN attempted to call HCP for update with no answer. Q2 repositioning and oral care performed. Plan of care ongoing.
[2025-01-30 23:14] LABS: Glucose, Whole Blood 173 mg/dL (60-115)
[2025-01-31] VITALS (41 sets, daily range): BP systolic 86–149; BP diastolic 46–81; PULSE 71–108; RESP 12–18; TEMP 34.7–37.5; O2SAT 88–96; BMI 38.1
[2025-01-31] MEDS: Albuterol/Iprat 2.5/0.5MG 3 ML AMPUL.NEB INHALE ×6 (04:15→23:29)
[2025-01-31 04:57] LABS: VBG HCO3 37 mmol/L (22-26); VBG O2 % Saturation 66.0 %
[2025-01-31 04:58] LABS: Venous Blood Gas Refer to POC result
[2025-01-31 05:08] LABS: MANUAL DIFF FLAG NO
[2025-01-31 05:09] LABS: Hematocrit 25.3 % (37.0-47.0); Hemoglobin 7.3 g/dl (12.0-16.0); Imm Gran Abs Auto 0.08 X10*3/uL (0.00-0.03); Imm Gran Pct Auto 0.6 % (0.0-0.4); Lymphocytes Absolute Auto 3.0 X10*3/uL (1.2-4.9); Mean Corpuscular HGB Conc 28.9 g/dl (31.0-35.0); Mean Corpuscular Hemoglobin 20.3 pg (27.0-33.0); Mean Corpuscular Volume 70.5 fL (80.0-98.0); NRBC Abs Auto 0.000 X10*3/uL (0.0-0.012); NRBC Pct Auto 0.0 /100WBC (0.0-0.2); Platelet Count 413 X10*3/uL (160-400); Red Blood Count 3.59 X10*6/uL (4.20-5.50); White Blood Count 14.3 X10*3/uL (4.8-10.8)
[2025-01-31 05:24] LABS: Alanine Aminotransferase 9 U/L (0-31); Albumin Level 3.5 g/dL (3.5-5.0); Alkaline Phosphatase 68 U/L (39-117); Anion Gap 14 (12-20); Aspartate Amino Transferase 14 U/L (5-31); Blood Urea Nitrogen 19 mg/dL (9-16); Calcium 8.3 mg/dL (8.4-10.2); Carbon Dioxide 29 mmol/L (22-29); Chloride 105 mmol/L (96-108); Creatinine Clr Calc Pharmacy 100.3; Estimated Glomerular Filt Rate > 60; Magnesium 2.2 mg/dL (1.6-2.6); Potassium 3.7 mmol/L (3.3-5.1); Sodium 144 mmol/L (135-145); Total Protein 5.6 g/dL (6.5-8.0)
--- NOTE | 2025-01-31 05:24 | PC.NURSE ---
Assumed care at 1900. Patient intubated and sedated, propofol and fentanyl gtts running per AUG for RASS -3. Positive cough, gag, and pain response. SR on tele, HR 70s-80s with occasional PACs. Levophed gtt running per MAR for BP support. Mechanically ventilated, see vent assessment. Abdomen soft and round, TF infusing via OGT towards goal without s/s of intolerance. No BM overnight. Bladder scanned at 2130 for 875mL urine; two previous straight caths for large amount of urine documented. Ortiz catheter inserted?per protocol, see ortiz assessment. Ortiz patent and draining clear, pale yellow urine, approx 75mL/hr. Skin warm and dry, diffuse bruising to arms and trunk. Prophylactic pink foams placed on bilateral heels and coccyx. Patient repositioned Q2HR, bed locked in lowest position, bed alarm on. Patient's HCP Jaja updated by this RN via phone on patient status and plan of care.
[2025-01-31] MEDS: Chlorhexidine Gluc Oral Rinse 15 ML MOUTHWASH BUCCAL ×3 (09:09→20:14)
[2025-01-31] MEDS: Insulin Glargine,Hum.rec.anlog 100 UNIT/ML 10 ML VIAL 20 UNIT SUBCUT (09:09)
[2025-01-31] MEDS: Aspirin Enteric Coated 81 MG TABLET.DR PO (09:09)
--- NOTE | 2025-01-31 09:59 | P.PNCC_ITS ---
Subjective Subjective Date of Service: 01/31/25 Interval History: Continues to be on ventilator support On propofol for sedation and fentanyl for analgesia Critical Care Time (minutes): 35 Physical Exam 2 Vital Signs: Vital Signs: Last Vital Signs Temp 98.4 F 01/31/25 09:00 Pulse 82 01/31/25 09:00 Resp 16 01/31/25 09:00 BP 116/66 01/31/25 09:00 Pulse Ox 92 01/31/25 09:00 O2 Del Method Mechanical Ventil ation 01/31/25 09:00 O2 Flow Rate 18 01/30/25 10:00 FiO2 30 01/31/25 09:00 Oxygen Flow Rate 3 01/30/25 06:10 BMI result Body Mass Index 38.1 General: Elderly lady in severe acute distress, ill appearing and tired appearing Nutritional Appearance: well nourished and overweight Eyes: appearance normal, both eyes and all related structures; Alignment and Position: alignment normal and position normal Neck: No lymphadenopathy, no thyromegaly Resp: bilateral air entry equal, occasional added sounds present Cardio: Regular rate, regular rhythm; Heart sounds: S1 normal heart sound present and S2 normal heart sound present GI: soft, nontender, no guarding, no hepatosplenomegaly : bladder normal to inspection, bladder normal to palpation, no renal angle tenderness Skin: no rashes or lesions noted and elasticity normal Neuro: Sedated, no focal deficits Objective Data Labs 01/31/25 04:42 01/31/25 04:42 Labs: Laboratory Results - last 24 hr 01/30/25 01/30/25 01/30/25 11:11 11:15 12:23 WBC RBC Hgb Hct MCV MCH MCHC RDW Plt Count MPV Immature Gran % (Auto) Neut % (Auto) Lymph % (Auto) [place] % (Auto) Eos % (Auto) Baso % (Auto) Lymph # (Auto) [place] # (Auto) Eos # (Auto) Baso # (Auto) Abs Immat Gran (auto) Absolute Neuts (auto) Absolute Nucleated RBC Nucleated RBC % (auto) VBG pH VBG pCO2 VBG pO2 VBG HCO3 VBG O2 Saturation VBG Base Excess Sodium Potassium Chloride Carbon Dioxide Anion Gap BUN Creatinine Estim Creat Clear Calc Estimated GFR POC Glucose 301 H Random Glucose Calcium Magnesium Total Bilirubin AST ALT Alkaline Phosphatase Total Protein Albumin Urine Color Yellow Urine Appearance Clear Urine pH 7.0 Ur Specific [place] 1.010 Urine Protein Negative Urine Glucose (UA) Negative Urine Ketones Negative Urine Blood Negative Urine Nitrite Negative Ur Leukocyte Esterase Negative Urine RBC 0-2 Urine WBC 0-5 Ur Squamous Epith Cells 0-2 Urine Bacteria None Seen Hyaline Casts 0-2 Nasal Screen MRSA (PCR) NEGATIVE Nasal S. aureus Screen NEGATIVE Nasal MRSA/S.aureus Interp SEE NOTE Urine Opiates Screen Not Detected Ur Buprenorphine Scrn Not Detected Ur Oxycodone Screen Not Detected Urine Methadone Screen Not Detected Urine Fentanyl Screen Not Detected Ur Barbiturates Screen Not Detected Ur Phencyclidine Scrn Not Detected Ur Amphetamines Screen Not Detected U Benzodiazepines Scrn Not Detected Urine Cocaine Screen Not Detected U Marijuana (THC) Screen Not Detected Respiratory Panel Keys See Note Adenovirus (Rapid PCR) Not Detected B.pert (TEM-PCR) Not Detected B.parapertussis DNA PCR Not Detected C. pneumoniae DNA (PCR) Not Detected Coronavirus OC43 (PCR) Not Detected Coronavirus HKU1 (PCR) Not Detected Coronavirus 229E (PCR) Not Detected Coronavirus NL63 (PCR) Not Detected Human Metapneumovir PCR Not Detected Influenza A (RT-PCR) Not Detected Influenza A (H1) PCR Not Detected Influ A (H1/09) PCR Not Detected Influenza A (H3) PCR Not Detected Influenza B (RT-PCR) Not Detected M. pneumoniae (PCR) Not Detected Parainfluenza 1 (PCR) Not Detected Parainfluenza 2 (PCR) Not Detected Parainfluenza 3 (PCR) Not Detected Parainfluenza 4 (PCR) Not Detected RSV (PCR) Not Detected Entero/Rhino (PCR) Detected A SARS-CoV-2 RNA (RT-PCR) Not Detected 01/30/25 01/30/25 01/31/25 17:25 23:10 04:42 WBC 14.3 H RBC 3.59 L Hgb 7.3 L Hct 25.3 L MCV 70.5 L MCH 20.3 L MCHC 28.9 L RDW 17.6 H Plt Count 413 H MPV 9.0 L Immature Gran % (Auto) 0.6 H Neut % (Auto) 70.8 Lymph % (Auto) 20.9 [place] % (Auto) 7.0 Eos % (Auto) 0.6 Baso % (Auto) 0.1 Lymph # (Auto) 3.0 [place] # (Auto) 1.0 Eos # (Auto) 0.1 Baso # (Auto) 0.0 Abs Immat Gran (auto) 0.08 H Absolute Neuts (auto) 10.2 H Absolute Nucleated RBC 0.000 Nucleated RBC % (auto) 0.0 VBG pH VBG pCO2 VBG pO2 VBG HCO3 VBG O2 Saturation VBG Base Excess Sodium 144 Potassium 3.7 Chloride 105 Carbon Dioxide 29 Anion Gap 14 BUN 19 H Creatinine 0.62 Estim Creat Clear Calc 100.3 Estimated GFR > 60 POC Glucose 260 H 173 H Random Glucose 150 H Calcium 8.3 L Magnesium 2.2 Total Bilirubin 0.2 AST 14 ALT 9 Alkaline Phosphatase 68 Total Protein 5.6 L Albumin 3.5 Urine Color Urine Appearance Urine pH Ur Specific [place] Urine Protein Urine Glucose (UA) Urine Ketones Urine Blood Urine Nitrite Ur Leukocyte Esterase Urine RBC Urine WBC Ur Squamous Epith Cells Urine Bacteria Hyaline Casts Nasal Screen MRSA (PCR) Nasal S. aureus Screen Nasal MRSA/S.aureus Interp Urine Opiates Screen Ur Buprenorphine Scrn Ur Oxycodone Screen Urine Methadone Screen Urine Fentanyl Screen Ur Barbiturates Screen Ur Phencyclidine Scrn Ur Amphetamines Screen U Benzodiazepines Scrn Urine Cocaine Screen U Marijuana (THC) Screen Respiratory Panel Keys Adenovirus (Rapid PCR) B.pert (TEM-PCR) B.parapertussis DNA PCR C. pneumoniae DNA (PCR) Coronavirus OC43 (PCR) Coronavirus HKU1 (PCR) Coronavirus 229E (PCR) Coronavirus NL63 (PCR) Human Metapneumovir PCR Influenza A (RT-PCR) Influenza A (H1) PCR Influ A (H1/09) PCR Influenza A (H3) PCR Influenza B (RT-PCR) M. pneumoniae (PCR) Parainfluenza 1 (PCR) Parainfluenza 2 (PCR) Parainfluenza 3 (PCR) Parainfluenza 4 (PCR) RSV (PCR) Entero/Rhino (PCR) SARS-CoV-2 RNA (RT-PCR) 01/31/25 04:52 WBC RBC Hgb Hct MCV MCH MCHC RDW Plt Count MPV Immature Gran % (Auto) Neut % (Auto) Lymph % (Auto) [place] % (Auto) Eos % (Auto) Baso % (Auto) Lymph # (Auto) [place] # (Auto) Eos # (Auto) Baso # (Auto) Abs Immat Gran (auto) Absolute Neuts (auto) Absolute Nucleated RBC Nucleated RBC % (auto) VBG pH 7.49 H VBG pCO2 48 VBG pO2 40 VBG HCO3 37 H VBG O2 Saturation 66.0 VBG Base Excess 12.4 Sodium Potassium Chloride Carbon Dioxide Anion Gap BUN Creatinine Estim Creat Clear Calc Estimated GFR POC Glucose Random Glucose Calcium Magnesium Total Bilirubin AST ALT Alkaline Phosphatase Total Protein Albumin Urine Color Urine Appearance Urine pH Ur Specific [place] Urine Protein Urine Glucose (UA) Urine Ketones Urine Blood Urine Nitrite Ur Leukocyte Esterase Urine RBC Urine WBC Ur Squamous Epith Cells Urine Bacteria Hyaline Casts Nasal Screen MRSA (PCR) Nasal S. aureus Screen Nasal MRSA/S.aureus Interp Urine Opiates Screen Ur Buprenorphine Scrn Ur Oxycodone Screen Urine Methadone Screen Urine Fentanyl Screen Ur Barbiturates Screen Ur Phencyclidine Scrn Ur Amphetamines Screen U Benzodiazepines Scrn Urine Cocaine Screen U Marijuana (THC) Screen Respiratory Panel Keys Adenovirus (Rapid PCR) B.pert (TEM-PCR) B.parapertussis DNA PCR C. pneumoniae DNA (PCR) Coronavirus OC43 (PCR) Coronavirus HKU1 (PCR) Coronavirus 229E (PCR) Coronavirus NL63 (PCR) Human Metapneumovir PCR Influenza A (RT-PCR) Influenza A (H1) PCR Influ A (H1/09) PCR Influenza A (H3) PCR Influenza B (RT-PCR) M. pneumoniae (PCR) Parainfluenza 1 (PCR) Parainfluenza 2 (PCR) Parainfluenza 3 (PCR) Parainfluenza 4 (PCR) RSV (PCR) Entero/Rhino (PCR) SARS-CoV-2 RNA (RT-PCR) Microbiology Microbiology Results: Microbiology 01/30/25 07:04 Blood - Venous Blood Culture - Preliminary No growth after 24 hours. 01/30/25 07:04 Blood - Venous Blood Culture - Preliminary No growth after 24 hours. Progress Note: A&P Assessment and plan (1) Crack cocaine use: Status: Acute (2) COPD (chronic obstructive pulmonary disease): Status: Acute (3) Acute hypoxemic respiratory failure: Status: Acute (4) Pneumonia: Status: Acute Plan Neuro: Acute encephalopathy possibly due to toxic metabolic encephalopathy. Urine drug screen negative We will get CT head if the patient has neuro deficit after sedation vacation On propofol for sedation, as needed fentanyl for analgesia Close neurological status monitoring in the ICU every hour Cardiac: Cardiogenic Shock: Possibly secondary to positive pressure ventilation On Levophed support, titrate Levophed to keep map above 65 mm Hg She has history of heart failure with preserved ejection fraction Respiratory: Acute hypoxemic respiratory failure due to COPD exacerbation Currently on ventilator support On PRVC mode FiO2 40%, PEEP 8, TV 360, RR 20, we will wean off the sedation and then place the patient on pressure support for weaning trials Peak pressures and plateau pressures are under the curve Ventilator management bundle with head end elevation, aspiration precaution, chlorhexidine mouthwash, daily awakening trials, daily spontaneous breathing trials Continue duo nebs [id number], Solu-Medrol 40 mg daily GI: Continue tube feeds Renal: Renal function normal We will closely monitor I's and O's Avoid nephrotoxic medications Heme: Chronic anemia, closely monitor H&H, transfuse for hemoglobin less than 7 grams/deciliter Endocrine: Diabetes mellitus: on Lantus 20 units daily, with sliding scale insulin Blood sugars under control Sliding scale insulin as needed Infectious disease: Pending pancultures Patient has history of ESBL UTI, was treated for ESBL UTI during the previous admission Continue meropenem, MRSA nares screen negative Musculoskeletal: Decubitus ulcer prevention protocol Lines: Peripheral No Ni Prophylaxis: Lovenox, pantoprazole Quality Stroke Does the patient have a stroke diagnosis?: No VTE Prior VTE?: No VTE Risk Level:: Medical - moderate - high VTE Device Contraindication: N/A - Device Ordered VTE Drug Contraindication: N/A - Med Ordered
[2025-01-31 10:46] LABS: Hematocrit 26.6 % (37.0-47.0); Hemoglobin 7.5 g/dl (12.0-16.0)
--- NOTE | 2025-01-31 11:25 | PC.RT ---
Pre extubation assessment reveals very little leak noted when cuff deflated for test. Nurse, aware.
--- NOTE | 2025-01-31 11:39 | MHC.CM.PN ---
EMR REVIEWED, PT W/COPD EXAC AND MECH VENT, CM CONTACGTED PT'S DTR/HCP MARINA GRAY REPORTS PT WAS VERY ANXIOUS THE DAY AFTER SHE RETURNEDC HOME PT'S NEW VNA [facility] DID NOT SHOW UP UNTIL 4PM THE DAY AFTER SHE WENT HOME SO SHE DID NOT GET HER MORNING MEDS UNTIL THEN, PT ALSO RECEIVED HER IV ERTAPENEM THAT SHE DC'D HOME ON FOR 10DAYS. MARINA CONFIRMS PT HAS NOT BEEN USING COCAINE/DRUGS SINCE SHE MOVED IN W/HER ON 01/14, PT LAST DRUG SCREENS ARE NEG, MARINA DOES REPORT PT CONT'S TO SMOKE AND THAT PT KEPT GIVING HERSELF NEB TX'S PRIOR TO HER CALLING FOR AMBULANCE. PT HAS A CANE, WALKER, WC AND HOME O2/BIPAP W/[facility]. [facility] FOR MED MANAGEMENT AND SN FOR IV ABX, 71 CHILD & ADOLESCENT PSYCHIATRIST HRS/WK. PCP AND HCP ON FILE VERIFIED. MARINA WOULD LIKE PT EVALUATED FOR STR DUE TO MULTIPLE ADMISSIONS.
[2025-01-31 11:55] LABS: Glucose, Whole Blood 194 mg/dL (60-115)
[2025-01-31 17:18] LABS: Glucose, Whole Blood 186 mg/dL (60-115)
[2025-02-01] VITALS (42 sets, daily range): BP systolic 84–129; BP diastolic 45–72; PULSE 82–105; RESP 13–20; TEMP 33–37.7; O2SAT 88–97; BMI 33.6
[2025-02-01 00:14] LABS: Glucose, Whole Blood 63 mg/dL (60-115)
[2025-02-01 00:14] LABS: Glucose, Whole Blood 54 mg/dL (60-115)
[2025-02-01 00:53] LABS: Glucose, Whole Blood 220 mg/dL (60-115)
[2025-02-01 00:53] LABS: Glucose, Whole Blood 153 mg/dL (60-115)
[2025-02-01] MEDS: Albumin Human 25 % 100 ML 133.33 ML IV ×2 (01:42→02:33)
[2025-02-01 03:19] LABS: Glucose, Whole Blood 81 mg/dL (60-115)
[2025-02-01] MEDS: Albuterol/Iprat 2.5/0.5MG 3 ML AMPUL.NEB INHALE ×6 (04:50→23:00)
[2025-02-01 05:01] LABS: VBG HCO3 34 mmol/L (22-26)
[2025-02-01 05:10] LABS: MANUAL DIFF FLAG NO
[2025-02-01 05:12] LABS: Hematocrit 24.2 % (37.0-47.0); Imm Gran Abs Auto 0.05 X10*3/uL (0.00-0.03); Imm Gran Pct Auto 0.4 % (0.0-0.4); Lymphocytes Absolute Auto 3.6 X10*3/uL (1.2-4.9); Mean Corpuscular HGB Conc 28.1 g/dl (31.0-35.0); Mean Corpuscular Hemoglobin 19.9 pg (27.0-33.0); Mean Corpuscular Volume 70.8 fL (80.0-98.0); NRBC Abs Auto 0.000 X10*3/uL (0.0-0.012); NRBC Pct Auto 0.0 /100WBC (0.0-0.2); Platelet Count 351 X10*3/uL (160-400); Red Blood Count 3.42 X10*6/uL (4.20-5.50); Venous Blood Gas Refer to POC result; White Blood Count 14.0 X10*3/uL (4.8-10.8)
[2025-02-01 05:18] LABS: Hemoglobin 6.8 g/dl (12.0-16.0)
[2025-02-01 05:21] LABS: Glucose, Whole Blood 109 mg/dL (60-115)
[2025-02-01 05:25] LABS: Alanine Aminotransferase 8 U/L (0-31); Albumin Level 4.1 g/dL (3.5-5.0); Alkaline Phosphatase 55 U/L (39-117); Anion Gap 12 (12-20); Aspartate Amino Transferase 12 U/L (5-31); Blood Urea Nitrogen 21 mg/dL (9-16); Calcium 8.5 mg/dL (8.4-10.2); Carbon Dioxide 30 mmol/L (22-29); Chloride 106 mmol/L (96-108); Creatinine Clr Calc Pharmacy 94.3; Estimated Glomerular Filt Rate > 60; Magnesium 2.0 mg/dL (1.6-2.6); Potassium 3.6 mmol/L (3.3-5.1); Sodium 144 mmol/L (135-145); Total Protein 6.1 g/dL (6.5-8.0)
[2025-02-01 05:55] LABS: Glucose, Whole Blood 70 mg/dL (60-115)
[2025-02-01 06:24] LABS: Glucose, Whole Blood 178 mg/dL (60-115)
[2025-02-01 06:46] LABS: Glucose, Whole Blood 158 mg/dL (60-115)
[2025-02-01 07:36] LABS: Glucose, Whole Blood 118 mg/dL (60-115)
[2025-02-01] MEDS: Chlorhexidine Gluc Oral Rinse 15 ML MOUTHWASH BUCCAL ×3 (09:25→21:24)
[2025-02-01] MEDS: Aspirin Enteric Coated 81 MG TABLET.DR PO (09:25)
[2025-02-01 09:28] LABS: Glucose, Whole Blood 136 mg/dL (60-115)
--- NOTE | 2025-02-01 10:22 | PC.RT ---
MD requesting check for cuff leak, cuff dropped, mininal air heard around cuff, with high pitched wheezing. cuff re inflated, [employer]. MD aware, and will attempt again 02/02/25
--- NOTE | 2025-02-01 10:43 | PM.CCPN ---
Subjective Subjective Date of Service: 02/01/25 Interval History: 54-year-old lady with underlying cocaine abuse, asthma/COPD overlap syndrome, HENRY/ohs on nocturnal BiPAP with suboptimal compliance, on supplemental oxygen, also obesity, diabetes mellitus, hypertension admitted on 01/30/2025 with acute hypercapnic respiratory failure requiring ventilatory support. Now with significant improvement, however extubation attempts are limited by no cuff leak, slowly improving. No events overnight. Critical Care Time (minutes): 60 Physical Exam Vital Signs: Vital Signs: Last Vital Signs Temp 99.3 F 02/01/25 10:12 Pulse 89 02/01/25 10:13 Resp 16 02/01/25 10:12 BP 126/72 02/01/25 10:13 Pulse Ox 93 02/01/25 09:00 O2 Del Method Mechanical Ventil ation 02/01/25 09:00 O2 Flow Rate 18 01/30/25 10:00 FiO2 30 02/01/25 09:00 Oxygen Flow Rate 3 01/30/25 06:10 BMI result Body Mass Index 33.6 Const: General: no acute distress and other (Sedated on ventilatory support) HEENT: Head: Yes atraumatic Eyes: General: appearance normal, both eyes and all related structures Sclerae: sclerae normal EOM: EOMs intact bilaterally Neck: Neck: Yes supple Lymphatic: no lymphadenopathy noted Resp: Auscultation: clear to auscultation bilaterally Cardio: Rate: regular rate Rhythm: regular rhythm Heart sounds: no gallops, no murmurs and no rubs GI: Palpation (GI): Soft to palpation and Other GI palpation findings present ( Nontender) Auscultation: normal bowel sounds Skin: General skin exam: other ( warm) Extrem: General: No clubbing, No cyanosis and No edema Objective Data Labs 02/01/25 04:46 02/01/25 04:46 Labs: Laboratory Results - last 24 hr 01/31/25 01/31/25 01/31/25 10:18 11:47 17:08 WBC RBC Hgb 7.5 L Hct 26.6 L MCV MCH MCHC RDW Plt Count MPV Immature Gran % (Auto) Neut % (Auto) Lymph % (Auto) [place] % (Auto) Eos % (Auto) Baso % (Auto) Lymph # (Auto) [place] # (Auto) Eos # (Auto) Baso # (Auto) Abs Immat Gran (auto) Absolute Neuts (auto) Absolute Nucleated RBC Nucleated RBC % (auto) VBG pH VBG pCO2 VBG pO2 VBG HCO3 VBG O2 Saturation VBG Base Excess Sodium Potassium Chloride Carbon Dioxide Anion Gap BUN Creatinine Estim Creat Clear Calc Estimated GFR POC Glucose 194 H 186 H Random Glucose Calcium Phosphorus Magnesium Total Bilirubin AST ALT Alkaline Phosphatase Total Protein Albumin Blood Type Antibody Screen Crossmatch Crossmatch ([facility]) 02/01/25 02/01/25 02/01/25 00:08 00:10 00:27 WBC RBC Hgb Hct MCV MCH MCHC RDW Plt Count MPV Immature Gran % (Auto) Neut % (Auto) Lymph % (Auto) [place] % (Auto) Eos % (Auto) Baso % (Auto) Lymph # (Auto) [place] # (Auto) Eos # (Auto) Baso # (Auto) Abs Immat Gran (auto) Absolute Neuts (auto) Absolute Nucleated RBC Nucleated RBC % (auto) VBG pH VBG pCO2 VBG pO2 VBG HCO3 VBG O2 Saturation VBG Base Excess Sodium Potassium Chloride Carbon Dioxide Anion Gap BUN Creatinine Estim Creat Clear Calc Estimated GFR POC Glucose 54 L* 63 220 H Random Glucose Calcium Phosphorus Magnesium Total Bilirubin AST ALT Alkaline Phosphatase Total Protein Albumin Blood Type Antibody Screen Crossmatch Crossmatch ([facility]) 02/01/25 02/01/25 02/01/25 00:48 03:14 04:46 WBC 14.0 H RBC 3.42 L Hgb 6.8 L* Hct 24.2 L MCV 70.8 L MCH 19.9 L MCHC 28.1 L RDW 17.9 H Plt Count 351 MPV 8.9 L Immature Gran % (Auto) 0.4 Neut % (Auto) 65.8 Lymph % (Auto) 25.8 [place] % (Auto) 7.2 Eos % (Auto) 0.7 Baso % (Auto) 0.1 Lymph # (Auto) 3.6 [place] # (Auto) 1.0 Eos # (Auto) 0.1 Baso # (Auto) 0.0 Abs Immat Gran (auto) 0.05 H Absolute Neuts (auto) 9.2 H Absolute Nucleated RBC 0.000 Nucleated RBC % (auto) 0.0 VBG pH VBG pCO2 VBG pO2 VBG HCO3 VBG O2 Saturation VBG Base Excess Sodium 144 Potassium 3.6 Chloride 106 Carbon Dioxide 30 H Anion Gap 12 BUN 21 H Creatinine 0.66 Estim Creat Clear Calc 94.3 Estimated GFR > 60 POC Glucose 153 H 81 Random Glucose 66 Calcium 8.5 Phosphorus 2.9 Magnesium 2.0 Total Bilirubin 0.2 AST 12 ALT 8 Alkaline Phosphatase 55 Total Protein 6.1 L Albumin 4.1 Blood Type Antibody Screen Crossmatch Crossmatch ([facility]) 02/01/25 02/01/25 02/01/25 04:57 05:17 05:51 WBC RBC Hgb Hct MCV MCH MCHC RDW Plt Count MPV Immature Gran % (Auto) Neut % (Auto) Lymph % (Auto) [place] % (Auto) Eos % (Auto) Baso % (Auto) Lymph # (Auto) [place] # (Auto) Eos # (Auto) Baso # (Auto) Abs Immat Gran (auto) Absolute Neuts (auto) Absolute Nucleated RBC Nucleated RBC % (auto) VBG pH 7.45 H VBG pCO2 48 VBG pO2 46 VBG HCO3 34 H VBG O2 Saturation TNP VBG Base Excess 9.8 Sodium Potassium Chloride Carbon Dioxide Anion Gap BUN Creatinine Estim Creat Clear Calc Estimated GFR POC Glucose 109 70 Random Glucose Calcium Phosphorus Magnesium Total Bilirubin AST ALT Alkaline Phosphatase Total Protein Albumin Blood Type Antibody Screen Crossmatch Crossmatch ([facility]) 02/01/25 02/01/25 02/01/25 06:19 06:27 06:43 WBC RBC Hgb Hct MCV MCH MCHC RDW Plt Count MPV Immature Gran % (Auto) Neut % (Auto) Lymph % (Auto) [place] % (Auto) Eos % (Auto) Baso % (Auto) Lymph # (Auto) [place] # (Auto) Eos # (Auto) Baso # (Auto) Abs Immat Gran (auto) Absolute Neuts (auto) Absolute Nucleated RBC Nucleated RBC % (auto) VBG pH VBG pCO2 VBG pO2 VBG HCO3 VBG O2 Saturation VBG Base Excess Sodium Potassium Chloride Carbon Dioxide Anion Gap BUN Creatinine Estim Creat Clear Calc Estimated GFR POC Glucose 178 H 158 H Random Glucose Calcium Phosphorus Magnesium Total Bilirubin AST ALT Alkaline Phosphatase Total Protein Albumin Blood Type B Negative Antibody Screen NEGATIVE Crossmatch See Detail Crossmatch ([facility]) See Detail 02/01/25 07:32 WBC RBC Hgb Hct MCV MCH MCHC RDW Plt Count MPV Immature Gran % (Auto) Neut % (Auto) Lymph % (Auto) [place] % (Auto) Eos % (Auto) Baso % (Auto) Lymph # (Auto) [place] # (Auto) Eos # (Auto) Baso # (Auto) Abs Immat Gran (auto) Absolute Neuts (auto) Absolute Nucleated RBC Nucleated RBC % (auto) VBG pH VBG pCO2 VBG pO2 VBG HCO3 VBG O2 Saturation VBG Base Excess Sodium Potassium Chloride Carbon Dioxide Anion Gap BUN Creatinine Estim Creat Clear Calc Estimated GFR POC Glucose 118 H Random Glucose Calcium Phosphorus Magnesium Total Bilirubin AST ALT Alkaline Phosphatase Total Protein Albumin Blood Type Antibody Screen Crossmatch Crossmatch ([facility]) Microbiology Microbiology Results: Microbiology 01/30/25 07:04 Blood - Venous Blood Culture - Final Coag negative Staphylococcus 01/30/25 07:04 Blood - Venous Blood Culture - Preliminary No growth after 48 hours. Progress Note: A&P Assessment and plan (1) Acute exacerbation of chronic obstructive pulmonary disease: Status: Acute (2) Supplemental oxygen dependent: Status: Acute (3) Acute hypercapnic respiratory failure: Status: Acute Plan Assessment: 54-year-old lady admitted with on chronic hypercapnic respiratory failure secondary to COPD exacerbation requiring ventilatory support, further complicated by no cuff leak with pressure support trial Plan: Neuro: No acute issues. Cardiac: No acute issues. Underlying diastolic dysfunction and hypotension. Pulmonary: Acute on chronic hypercapnic respiratory failure requiring ventilatory support, continue to titrate off as tolerated. Now with slowly improving cuff leak. Continue systemic glucocorticoids. Renal: No acute issues. Endo: No acute issues. Underlying diabetes mellitus. GI: No acute issues. ID: No acute issues Heme/Onc: No acute issues. Psych: No acute issues. Miscellaneous: No acute issues. Prophylaxis: Heparin, ppi Diet: Tube feeds Critical care time spent: 60 minutes Quality Stroke Does the patient have a stroke diagnosis?: No VTE Prior VTE?: No VTE Risk Level:: Medical - moderate - high VTE Device Contraindication: N/A - Device Ordered VTE Drug Contraindication: N/A - Med Ordered
[2025-02-01 12:03] LABS: Glucose, Whole Blood 106 mg/dL (60-115)
[2025-02-01 12:38] LABS: Hematocrit 29.9 % (37.0-47.0); Hemoglobin 8.4 g/dl (12.0-16.0)
--- NOTE | 2025-02-01 13:27 | MHC.CM.PN ---
Pt remains on ventilatory support in ICU: No plans to extubate at this time: D/C plan was for a return to home w/existing VNA and [employer] services. CM to follow
[2025-02-01 17:11] LABS: Glucose, Whole Blood 159 mg/dL (60-115)
--- NOTE | 2025-02-01 18:13 | PC.NURSE ---
Assumed care at 0700 - pt remains intubated, off sedation since 01/31 0930. Absent cuff leak per RT - will reassess 02/02 per MD. Patient calm, corporative, following commands. TF restarted per order. Levo titrated off. R IJ TLC removed without incident - occlusive dressing applied. 1u PRBC administered - post transfusion H&H obtained - see results. Skin clean, dry & intact - bruising to bilateral arms, no other skin integrity concerns - repo q2hr, heel boots in place, pt on speciality bed, barrier cream applied. High fall risk precautions in place. Care ongoing.
[2025-02-02] VITALS (34 sets, daily range): BP systolic 98–141; BP diastolic 50–87; PULSE 74–110; RESP 13–20; TEMP 33.3–37.5; O2SAT 88–99; BMI 34.0
[2025-02-02 00:08] LABS: Glucose, Whole Blood 78 mg/dL (60-115)
[2025-02-02 01:06] LABS: Glucose, Whole Blood 75 mg/dL (60-115)
[2025-02-02 02:31] LABS: Glucose, Whole Blood 106 mg/dL (60-115)
[2025-02-02] MEDS: Albuterol/Iprat 2.5/0.5MG 3 ML AMPUL.NEB INHALE ×6 (04:31→23:01)
[2025-02-02 05:42] LABS: Venous Blood Gas Refer to POC result
[2025-02-02 05:44] LABS: Glucose, Whole Blood 100 mg/dL (60-115)
[2025-02-02 05:49] LABS: VBG HCO3 28 mmol/L (22-26); VBG O2 % Saturation 100.0 %
[2025-02-02 06:29] LABS: MANUAL DIFF FLAG NO
[2025-02-02 06:33] LABS: Hematocrit 31.8 % (37.0-47.0); Hemoglobin 9.2 g/dl (12.0-16.0); Imm Gran Abs Auto 0.06 X10*3/uL (0.00-0.03); Imm Gran Pct Auto 0.5 % (0.0-0.4); Lymphocytes Absolute Auto 3.9 X10*3/uL (1.2-4.9); Mean Corpuscular HGB Conc 28.9 g/dl (31.0-35.0); Mean Corpuscular Hemoglobin 21.3 pg (27.0-33.0); Mean Corpuscular Volume 73.8 fL (80.0-98.0); NRBC Abs Auto 0.000 X10*3/uL (0.0-0.012); NRBC Pct Auto 0.0 /100WBC (0.0-0.2); Platelet Count 353 X10*3/uL (160-400); Red Blood Count 4.31 X10*6/uL (4.20-5.50); White Blood Count 13.1 X10*3/uL (4.8-10.8)
[2025-02-02 06:55] LABS: Albumin Level 3.8 g/dL (3.5-5.0); Anion Gap 11 (12-20); Blood Urea Nitrogen 22 mg/dL (9-16); Calcium 8.8 mg/dL (8.4-10.2); Carbon Dioxide 26 mmol/L (22-29); Chloride 109 mmol/L (96-108); Creatinine Clr Calc Pharmacy 95.6; Estimated Glomerular Filt Rate > 60; Magnesium 2.1 mg/dL (1.6-2.6); Potassium 3.7 mmol/L (3.3-5.1); Sodium 142 mmol/L (135-145)
[2025-02-02] MEDS: Aspirin Enteric Coated 81 MG TABLET.DR PO (08:32)
[2025-02-02] MEDS: Chlorhexidine Gluc Oral Rinse 15 ML MOUTHWASH BUCCAL (08:32)
--- NOTE | 2025-02-02 09:42 | MHC.SLORD ---
Speech Language Pathology Order Status: Pt currently intubated. Pt will be seen for clinical swallow evaluation w/ MEDICAL OFFICE RECEPTIONIST ASSISTANT 24+ hours s/p extubation.
--- NOTE | 2025-02-02 10:05 | PM.CCPN ---
Subjective Subjective Date of Service: 02/02/25 Interval History: 54-year-old lady with underlying cocaine abuse, asthma/COPD overlap syndrome, HENRY/ohs on nocturnal BiPAP with suboptimal compliance, on supplemental oxygen, also obesity, diabetes mellitus, hypertension admitted on 01/30/2025 with acute hypercapnic respiratory failure requiring ventilatory support. Now with significant improvement, however extubation attempts are limited by no cuff leak, slowly improving. No events overnight. Critical Care Time (minutes): 60 Physical Exam Vital Signs: Vital Signs: Last Vital Signs Temp 98.5 F 02/02/25 09:00 Pulse 107 H 02/02/25 09:00 Resp 19 02/02/25 09:00 BP 119/56 L 02/02/25 09:00 Pulse Ox 90 L 02/02/25 09:00 O2 Del Method Mechanical Ventil ation 02/02/25 09:00 O2 Flow Rate 18 01/30/25 10:00 FiO2 30 02/02/25 09:50 Oxygen Flow Rate 3 01/30/25 06:10 BMI result Body Mass Index 34.0 Const: General: no acute distress and other Eyes: Sclerae: sclerae normal EOM: EOMs intact bilaterally Neck: Neck: Yes no lymphadenopathy, Yes trachea midline and Yes supple Resp: Auscultation: clear to auscultation bilaterally Cardio: Rate: regular rate Rhythm: regular rhythm Heart sounds: no gallops, no murmurs and no rubs GI: Palpation (GI): Soft to palpation and Other GI palpation findings present ( Nontender) Auscultation: normal bowel sounds Extrem: General: No clubbing and No cyanosis Objective Data Labs 02/02/25 05:36 02/02/25 05:36 Labs: Laboratory Results - last 24 hr 02/01/25 02/01/25 02/01/25 04:46 06:27 11:50 WBC RBC Hgb Hct MCV MCH MCHC RDW Plt Count MPV Immature Gran % (Auto) Neut % (Auto) Lymph % (Auto) [place] % (Auto) Eos % (Auto) Baso % (Auto) Lymph # (Auto) [place] # (Auto) Eos # (Auto) Baso # (Auto) Abs Immat Gran (auto) Absolute Neuts (auto) Absolute Nucleated RBC Nucleated RBC % (auto) Smear Path Review SEE NOTE VBG pH VBG pCO2 VBG pO2 VBG HCO3 VBG O2 Saturation VBG Base Excess Sodium Potassium Chloride Carbon Dioxide Anion Gap BUN Creatinine Estim Creat Clear Calc Estimated GFR POC Glucose 106 Random Glucose Calcium Phosphorus Magnesium Albumin Crossmatch See Detail Crossmatch ([facility]) See Detail 02/01/25 02/01/25 02/01/25 12:28 17:00 23:55 WBC RBC Hgb 8.4 L D Hct 29.9 L D MCV MCH MCHC RDW Plt Count MPV Immature Gran % (Auto) Neut % (Auto) Lymph % (Auto) [place] % (Auto) Eos % (Auto) Baso % (Auto) Lymph # (Auto) [place] # (Auto) Eos # (Auto) Baso # (Auto) Abs Immat Gran (auto) Absolute Neuts (auto) Absolute Nucleated RBC Nucleated RBC % (auto) Smear Path Review VBG pH VBG pCO2 VBG pO2 VBG HCO3 VBG O2 Saturation VBG Base Excess Sodium Potassium Chloride Carbon Dioxide Anion Gap BUN Creatinine Estim Creat Clear Calc Estimated GFR POC Glucose 159 H 78 Random Glucose Calcium Phosphorus Magnesium Albumin Crossmatch Crossmatch ([facility]) 02/02/25 02/02/25 02/02/25 01:02 02:27 05:36 WBC 13.1 H RBC 4.31 D Hgb 9.2 L Hct 31.8 L MCV 73.8 L MCH 21.3 L MCHC 28.9 L RDW 20.1 H Plt Count 353 MPV 9.5 Immature Gran % (Auto) 0.5 H Neut % (Auto) 59.3 Lymph % (Auto) 30.1 [place] % (Auto) 8.4 Eos % (Auto) 1.5 Baso % (Auto) 0.2 Lymph # (Auto) 3.9 [place] # (Auto) 1.1 Eos # (Auto) 0.2 Baso # (Auto) 0.0 Abs Immat Gran (auto) 0.06 H Absolute Neuts (auto) 7.8 Absolute Nucleated RBC 0.000 Nucleated RBC % (auto) 0.0 Smear Path Review VBG pH VBG pCO2 VBG pO2 VBG HCO3 VBG O2 Saturation VBG Base Excess Sodium 142 Potassium 3.7 Chloride 109 H Carbon Dioxide 26 Anion Gap 11 L BUN 22 H Creatinine 0.61 Estim Creat Clear Calc 95.6 Estimated GFR > 60 POC Glucose 75 106 Random Glucose 94 Calcium 8.8 Phosphorus 2.8 Magnesium 2.1 Albumin 3.8 Crossmatch Crossmatch ([facility]) 02/02/25 02/02/25 05:38 05:45 WBC RBC Hgb Hct MCV MCH MCHC RDW Plt Count MPV Immature Gran % (Auto) Neut % (Auto) Lymph % (Auto) [place] % (Auto) Eos % (Auto) Baso % (Auto) Lymph # (Auto) [place] # (Auto) Eos # (Auto) Baso # (Auto) Abs Immat Gran (auto) Absolute Neuts (auto) Absolute Nucleated RBC Nucleated RBC % (auto) Smear Path Review VBG pH 7.55 H VBG pCO2 32 VBG pO2 186 VBG HCO3 28 H VBG O2 Saturation 100.0 VBG Base Excess 6.5 Sodium Potassium Chloride Carbon Dioxide Anion Gap BUN Creatinine Estim Creat Clear Calc Estimated GFR POC Glucose 100 Random Glucose Calcium Phosphorus Magnesium Albumin Crossmatch Crossmatch ([facility]) Microbiology Microbiology Results: Microbiology 01/30/25 07:04 Blood - Venous Blood Culture - Final Coag negative Staphylococcus 01/30/25 07:04 Blood - Venous Blood Culture - Preliminary No growth after 48 hours. Progress Note: A&P Assessment and plan (1) COPD (chronic obstructive pulmonary disease): Status: Acute (2) Acute exacerbation of chronic obstructive pulmonary disease: Status: Acute (3) Acute hypercapnic respiratory failure: Status: Acute Plan Assessment: 54-year-old lady admitted with on chronic hypercapnic respiratory failure secondary to COPD exacerbation requiring ventilatory support, further complicated by no cuff leak with pressure support trial Plan: Neuro: No acute issues. Cardiac: No acute issues. Underlying diastolic dysfunction and hypotension. Pulmonary: Acute on chronic hypercapnic respiratory failure requiring ventilatory support, continue to titrate off as tolerated. Now with improved cuff leak. Renal: No acute issues. Endo: No acute issues. Underlying diabetes mellitus. GI: No acute issues. ID: No acute issues Heme/Onc: No acute issues. Psych: No acute issues. Miscellaneous: No acute issues. Prophylaxis: Heparin, ppi Diet: Tube feeds Critical care time spent: 60 minutes Quality Stroke Does the patient have a stroke diagnosis?: No VTE Prior VTE?: No VTE Risk Level:: Medical - moderate - high VTE Device Contraindication: N/A - Device Ordered VTE Drug Contraindication: N/A - Med Ordered
--- NOTE | 2025-02-02 11:05 | MHC.CM.ED ---
Pt continues care in ICU: plans are for extubation today: Pt will be referred to [facility] and will need a PT eval once medically stable.
[2025-02-02 11:14] LABS: Glucose, Whole Blood 155 mg/dL (60-115)
[2025-02-02 14:12] LABS: OBS Int Ctl Valid YES; OBS Lot 0124; OBS1 NEGATIVE (NEGATIVE)
[2025-02-02 15:58] LABS: Glucose, Whole Blood 271 mg/dL (60-115)
[2025-02-02 20:17] LABS: Glucose, Whole Blood 103 mg/dL (60-115)
[2025-02-03] VITALS (27 sets, daily range): BP systolic 105–158; BP diastolic 49–77; PULSE 72–120; RESP 12–25; TEMP 35.6–36.4; O2SAT 90–99; BMI 33.9
[2025-02-03] MEDS: Albuterol/Iprat 2.5/0.5MG 3 ML AMPUL.NEB INHALE ×6 (03:00→23:07)
[2025-02-03 04:35] LABS: VBG HCO3 30 mmol/L (22-26); VBG O2 % Saturation 90.0 %
--- NOTE | 2025-02-03 04:44 | PC.NURSE ---
Addendum entered by Larry Sandra RN 02/03/25 05:35: BIPAP WEANED FROM 11/01 TO 06/04 AND FIO2 24% BY RT FOR ELEVATED Ve (15-16 L/M)...CURRENTLY Ve = 10-11 L/M WITH BIPAP 06/04 Original Note: CARE ASSUMED 7PM...EXTUBATED DAY-SHIFT 02/02/25..O2 2 L/M VIA CANNULA OR O2 2 L/M OXIMASK PER COMFORT/REQUEST..ALERT..ORIENTED X3...DRINKING FLUIDS AND TAKING FOOD W/O DIFFICULTY...OOB TO BEDSIDE TO VOID..WANG BUT NO DISTRESS AT REST...BP STABL;E...NSR..OCASSIONAL PAC'S AND RARE ABERRANTLY CONDUCTED PAC'S..ISOLATED PVC'S...C/O ANXIETY DESPITE ATARAX RECEIVED FROM PRIOR RN...REQUESTED HOME SEROQUEL..PROVIDER UPDATED..SEROQUELPO GIVEN WITH HS TOPIRAMITE...RESTFULL...TIZANIDINE GIVEN HS AND PLACED ON NOCTURNAL BIPAP..STATED USES BIPAP AT HOME FOR SLEEP...RESTFUL OVERNIGHT..PROVIDER STATED OTHER HOME MEDS TO BE RE-ORDER AFTER EVALUATING VITALS/RESPIRATORY STATUS IN AM
[2025-02-03 04:46] LABS: Hematocrit 31.3 % (37.0-47.0); Hemoglobin 8.8 g/dl (12.0-16.0); Imm Gran Abs Auto 0.04 X10*3/uL (0.00-0.03); Imm Gran Pct Auto 0.4 % (0.0-0.4); Lymphocytes Absolute Auto 3.2 X10*3/uL (1.2-4.9); MANUAL DIFF FLAG NO; Mean Corpuscular HGB Conc 28.1 g/dl (31.0-35.0); Mean Corpuscular Hemoglobin 21.0 pg (27.0-33.0); Mean Corpuscular Volume 74.5 fL (80.0-98.0); NRBC Abs Auto 0.000 X10*3/uL (0.0-0.012); NRBC Pct Auto 0.0 /100WBC (0.0-0.2); Platelet Count 359 X10*3/uL (160-400); Red Blood Count 4.20 X10*6/uL (4.20-5.50); White Blood Count 10.4 X10*3/uL (4.8-10.8)
[2025-02-03 04:52] LABS: Venous Blood Gas Refer to POC result
[2025-02-03 05:00] LABS: Albumin Level 3.8 g/dL (3.5-5.0); Anion Gap 11 (12-20); Blood Urea Nitrogen 23 mg/dL (9-16); Calcium 8.5 mg/dL (8.4-10.2); Carbon Dioxide 28 mmol/L (22-29); Chloride 109 mmol/L (96-108); Creatinine Clr Calc Pharmacy 95.5; Estimated Glomerular Filt Rate > 60; Magnesium 1.9 mg/dL (1.6-2.6); Potassium 3.6 mmol/L (3.3-5.1); Sodium 144 mmol/L (135-145)
[2025-02-03 07:49] LABS: Glucose, Whole Blood 98 mg/dL (60-115)
[2025-02-03] MEDS: Aspirin Enteric Coated 81 MG TABLET.DR PO (08:26)
--- NOTE | 2025-02-03 08:34 | MHC.CLN ---
F/U PT EXTUBATED YESTERDAY DIET ADVANCED TO REGULAR 75% PO X 1 MEAL MONITOR PO INTAKE CLOSELY RD TO FOLLOW WEEKLY
--- NOTE | 2025-02-03 09:55 | PM.CCPN ---
Subjective Subjective Date of Service: 02/03/25 Interval History: 54-year-old lady with underlying cocaine abuse, asthma/COPD overlap syndrome, HENRY/ohs on nocturnal BiPAP with suboptimal compliance, on supplemental oxygen, also obesity, diabetes mellitus, hypertension admitted on 01/30/2025 with acute hypercapnic respiratory failure requiring ventilatory support. Extubated on 02/02/2025. No events overnight. Critical Care Time (minutes): 0 Physical Exam Vital Signs: Vital Signs: Last Vital Signs Temp 97.4 F 02/03/25 00:00 Pulse 96 02/03/25 09:00 Resp 12 02/03/25 09:00 BP 110/67 02/03/25 09:00 Pulse Ox 93 02/03/25 09:00 O2 Del Method BiPAP 02/03/25 09:00 O2 Flow Rate 2 02/02/25 22:00 FiO2 28 02/03/25 09:00 Oxygen Flow Rate 3 01/30/25 06:10 BMI result Body Mass Index 33.9 Const: General: no acute distress, alert and awake Eyes: Sclerae: sclerae normal EOM: EOMs intact bilaterally Neck: Neck: Yes no lymphadenopathy, Yes trachea midline and Yes supple Resp: Effort & Inspection: normal respiratory effort and no respiratory distress Auscultation: clear to auscultation bilaterally Cardio: Rate: tachycardic Rhythm: regular rhythm Heart sounds: no gallops, no murmurs and no rubs GI: Palpation (GI): Soft to palpation and Other GI palpation findings present ( Nontender) Auscultation: normal bowel sounds Extrem: General: Yes no pedal edema, No clubbing and No cyanosis Objective Data Labs 02/03/25 04:26 02/03/25 04:26 Labs: Laboratory Results - last 24 hr 02/01/25 02/02/25 02/02/25 01:06 11:09 12:55 WBC RBC Hgb Hct MCV MCH MCHC RDW Plt Count MPV Immature Gran % (Auto) Neut % (Auto) Lymph % (Auto) [place] % (Auto) Eos % (Auto) Baso % (Auto) Lymph # (Auto) [place] # (Auto) Eos # (Auto) Baso # (Auto) Abs Immat Gran (auto) Absolute Neuts (auto) Absolute Nucleated RBC Nucleated RBC % (auto) VBG pH VBG pCO2 VBG pO2 VBG HCO3 VBG O2 Saturation VBG Base Excess Sodium Potassium Chloride Carbon Dioxide Anion Gap BUN Creatinine Estim Creat Clear Calc Estimated GFR POC Glucose 136 H 155 H Random Glucose Calcium Phosphorus Magnesium Albumin Stool Occult Blood NEGATIVE 02/02/25 02/02/25 02/03/25 15:53 20:13 04:26 WBC 10.4 RBC 4.20 Hgb 8.8 L Hct 31.3 L MCV 74.5 L MCH 21.0 L MCHC 28.1 L RDW 20.3 H Plt Count 359 MPV 9.2 L Immature Gran % (Auto) 0.4 Neut % (Auto) 57.9 Lymph % (Auto) 30.9 [place] % (Auto) 8.6 Eos % (Auto) 2.0 Baso % (Auto) 0.2 Lymph # (Auto) 3.2 [place] # (Auto) 0.9 Eos # (Auto) 0.2 Baso # (Auto) 0.0 Abs Immat Gran (auto) 0.04 H Absolute Neuts (auto) 6.0 Absolute Nucleated RBC 0.000 Nucleated RBC % (auto) 0.0 VBG pH VBG pCO2 VBG pO2 VBG HCO3 VBG O2 Saturation VBG Base Excess Sodium 144 Potassium 3.6 Chloride 109 H Carbon Dioxide 28 Anion Gap 11 L BUN 23 H Creatinine 0.61 Estim Creat Clear Calc 95.5 Estimated GFR > 60 POC Glucose 271 H 103 Random Glucose 118 H Calcium 8.5 Phosphorus 2.7 Magnesium 1.9 Albumin 3.8 Stool Occult Blood 02/03/25 02/03/25 04:31 07:40 WBC RBC Hgb Hct MCV MCH MCHC RDW Plt Count MPV Immature Gran % (Auto) Neut % (Auto) Lymph % (Auto) [place] % (Auto) Eos % (Auto) Baso % (Auto) Lymph # (Auto) [place] # (Auto) Eos # (Auto) Baso # (Auto) Abs Immat Gran (auto) Absolute Neuts (auto) Absolute Nucleated RBC Nucleated RBC % (auto) VBG pH 7.48 H VBG pCO2 40 VBG pO2 57 VBG HCO3 30 H VBG O2 Saturation 90.0 VBG Base Excess 6.4 Sodium Potassium Chloride Carbon Dioxide Anion Gap BUN Creatinine Estim Creat Clear Calc Estimated GFR POC Glucose 98 Random Glucose Calcium Phosphorus Magnesium Albumin Stool Occult Blood Microbiology Microbiology Results: Microbiology 01/30/25 07:04 Blood - Venous Blood Culture - Final Coag negative Staphylococcus 01/30/25 07:04 Blood - Venous Blood Culture - Preliminary No growth after 48 hours. Progress Note: A&P Assessment and plan (1) COPD (chronic obstructive pulmonary disease): Status: Acute (2) Acute exacerbation of chronic obstructive pulmonary disease: Status: Acute Plan Assessment: 54-year-old lady admitted with on chronic hypercapnic respiratory failure secondary to COPD exacerbation requiring ventilatory support, further complicated by no cuff leak with pressure support trial Plan: Neuro: No acute issues. Cardiac: No acute issues. Underlying diastolic dysfunction and hypotension. Pulmonary: Acute on chronic hypercapnic respiratory failure requiring ventilatory support, resolved, extubated 02/02/2025. Renal: No acute issues. Endo: No acute issues. Underlying diabetes mellitus. GI: No acute issues. ID: No acute issues Heme/Onc: No acute issues. Psych: No acute issues. Miscellaneous: No acute issues. Prophylaxis: Heparin Diet: Regular Quality Stroke Does the patient have a stroke diagnosis?: No VTE Prior VTE?: No VTE Risk Level:: Medical - moderate - high VTE Device Contraindication: N/A - Device Ordered VTE Drug Contraindication: N/A - Med Ordered
--- NOTE | 2025-02-03 10:28 | PC.NURSE ---
patient stated could not breathe, felt like she was having an anxiety attack . proveded cold pack to place on chest, PRN Atarax and MD okayed scheduled nebulizer to be given early. PT saturations remained 92% throughout episode, patient had a minor wheeze and was tachypneic, signs and symptoms impoved, patient is receiving nebuizer now
--- NOTE | 2025-02-03 10:49 | MHC.SLORD ---
Speech Language Pathology Order Status: RN and MD consulted, pt does not need swallow eval as she passed RN screen and is eating regular food without concern. [employer] d/c'd order per MD recc.
[2025-02-03 12:19] LABS: Glucose, Whole Blood 174 mg/dL (60-115)
[2025-02-03 16:29] LABS: Glucose, Whole Blood 119 mg/dL (60-115)
[2025-02-03] MEDS: Albuterol Sulfate (0.083%) 2.5 MG/3 ML VIAL.NEB INHALE ×2 (16:56→21:54)
[2025-02-03] MEDS: Theophylline Anhydrous ER 400 MG TAB.ER.24H PO (20:31)
[2025-02-03 21:01] LABS: Glucose, Whole Blood 188 mg/dL (60-115)
[2025-02-04] VITALS (12 sets, daily range): BP systolic 115–152; BP diastolic 59–80; PULSE 79–92; RESP 16–18; TEMP 35.8–36.4; O2SAT 92–98; BMI 34.7
--- NOTE | 2025-02-04 | ECG_ITS ---
Test Reason : ck rhythm Blood Pressure : */* mmHG Vent. Rate : 84 BPM Atrial Rate : 84 BPM P-R Int : 128 ms QRS Dur : 92 ms QT Int : 370 ms P-R-T Axes : 55 104 58 degrees QTcB Int : 437 ms Normal sinus rhythm with sinus arrhythmia Rightward axis Borderline ECG When compared with ECG of 30-Jan-2025 06:22, Premature atrial complexes are no longer Present Referred By: John Andrade Electronically Signed By: DAVIS WALKER
--- NOTE | 2025-02-04 02:56 | HO.SKINPHOTO ---
Location: Bridge of nose
[2025-02-04] MEDS: Albuterol/Iprat 2.5/0.5MG 3 ML AMPUL.NEB INHALE ×6 (05:24→23:44)
[2025-02-04 06:50] LABS: Venous Blood Gas Refer to POC result
[2025-02-04 06:51] LABS: MANUAL DIFF FLAG NO
[2025-02-04 06:54] LABS: VBG HCO3 28 mmol/L (22-26); VBG O2 % Saturation 96.0 %
[2025-02-04 06:56] LABS: Hematocrit 31.5 % (37.0-47.0); Hemoglobin 9.1 g/dl (12.0-16.0); Imm Gran Abs Auto 0.04 X10*3/uL (0.00-0.03); Imm Gran Pct Auto 0.4 % (0.0-0.4); Lymphocytes Absolute Auto 1.4 X10*3/uL (1.2-4.9); Mean Corpuscular HGB Conc 28.9 g/dl (31.0-35.0); Mean Corpuscular Hemoglobin 21.3 pg (27.0-33.0); Mean Corpuscular Volume 73.8 fL (80.0-98.0); NRBC Abs Auto 0.000 X10*3/uL (0.0-0.012); NRBC Pct Auto 0.0 /100WBC (0.0-0.2); Platelet Count 369 X10*3/uL (160-400); Red Blood Count 4.27 X10*6/uL (4.20-5.50); White Blood Count 11.3 X10*3/uL (4.8-10.8)
[2025-02-04 07:02] LABS: Glucose, Whole Blood 228 mg/dL (60-115)
[2025-02-04 07:15] LABS: Albumin Level 3.9 g/dL (3.5-5.0); Anion Gap 12 (12-20); Blood Urea Nitrogen 24 mg/dL (9-16); Calcium 8.7 mg/dL (8.4-10.2); Carbon Dioxide 23 mmol/L (22-29); Chloride 109 mmol/L (96-108); Creatinine Clr Calc Pharmacy 100.0; Estimated Glomerular Filt Rate > 60; Magnesium 2.0 mg/dL (1.6-2.6); Potassium 5.3 mmol/L (3.3-5.1); Sodium 139 mmol/L (135-145)
[2025-02-04] MEDS: Aspirin Enteric Coated 81 MG TABLET.DR PO (07:57)
[2025-02-04] MEDS: Theophylline Anhydrous ER 400 MG TAB.ER.24H PO ×2 (07:58→20:51)
[2025-02-04 08:56] LABS: Iron 44 mcg/dL (30-160); Percent Iron Saturation 18 % (15-50); Total Iron Binding Capacity 248 mcg/dL (228-428); Unsaturated Iron Binding 204 ug/dL
[2025-02-04 09:06] LABS: Ferritin 42 ng/mL (10-250)
--- NOTE | 2025-02-04 10:36 | HO.WOUND ---
Wound Consult: Initial 54yr old?female admitted to [facility] [place] on 01/30/25- See progress notes and H&P for detailed history.? Wound consult placed for Bridge of nose.? Patient agreeable to assessment and photo documentation.? Patient currently using [place] oxygen no BIPAP in place - Mepilex removed and skin assessed: Bird[place] of nose Etiology: ?No pressure injury noted - intact blanchable redness. No BIPAP or device to the area at this time. May leave SURESH and apply mepilex foam prior to next application to protect from friction and off load pressure. Recommendations: 1. Turn and Reposition every 2 hours and as needed for patient comfort.? Use pillows or wedges to support off loading positions. 2. Off Load all bony prominences with use of pillows and heel boots if needed.? Apply Preventative foams where needed. ? 3. Monitor for incontinence and moisture control, use barrier creams when needed for prevention and treatment. 4. Provide adequate and supplemental nutrition.? 5. Order low air loss mattress. 6. When applicable maintain blood glucose levels per Providers order. Bridge of Nose - May leave DIGITAL IMAGER when device is not in use. Apply Skin prep avoid eyes. Allow to scott apply Mepilex foam dressing prior to BIPAP / Device application. Be sure ot assess skin and reposition as needed. Recommend Foam rolls to oxygen tubing. Re-consult wound care Nurse for wound deterioration or wound changes.
[2025-02-04 10:40] LABS: Troponin-I High Sensitivity 7.0 ng/L (<3.5-17.0)
[2025-02-04 10:59] LABS: Glucose, Whole Blood 147 mg/dL (60-115)
[2025-02-04 13:08] LABS: Troponin-I High Sensitivity 9.4 ng/L (<3.5-17.0)
--- NOTE | 2025-02-04 13:33 | P.PNIM_ITS ---
Subjective Subjective Date of Service: 02/04/25 Interval History: feels much better, states breathing has improved denies cocaine abuse for over 3 wk Review of Systems Review of Systems: Yes all other systems are reviewed and are negative Physical Exam 2 Vital Signs: Vital Signs: Last Vital Signs Temp 97.4 F 02/04/25 11:01 Pulse 90 02/04/25 11:26 Resp 16 02/04/25 11:26 BP 125/80 02/04/25 11:01 Pulse Ox 95 02/04/25 11:01 O2 Del Method Nasal Cannula 02/04/25 11:01 O2 Flow Rate 2 02/04/25 11:01 FiO2 24 02/03/25 23:45 Oxygen Flow Rate 3 01/30/25 06:10 BMI result Body Mass Index 34.7 Gen: in no acute distress HEENT: sclera anicteric, moist mucus membranes Neck: supple Lungs: diminished Heart: regular rate and rhythm, no murmurs Abd: soft, non-tender, non-distended Ext: no edema Skin: warm/well-perfused Neuro: alert and oriented x3, no focal findings Psych: appropriate affect Objective Data Active Medications Acetaminophen (Acetaminophen 325 Mg Tablet) 650 mg PO Q6H PRN PRN Reason: Fever >100.4 Last Admin: 02/02/25 05:58 Dose: 650 mg Documented By: CANDI Albuterol Sulfate (Albuterol Sulfate (0.083%) 2.5 Mg/3 Ml Vial.Neb) 2.5 mg INHALE Q2H PRN PRN Reason: Shortness of Breath/Wheezing Last Admin: 02/03/25 21:54 Dose: 2.5 mg Documented By: REHANA Albuterol/Ipratropium (Albuterol/Iprat 2.5/0.5mg 3 Ml Ampul.Neb) 3 ml INHALE RQ4H [facility] Last Admin: 02/04/25 11:21 Dose: 3 ml Documented By: MANPREET Aspirin (Aspirin Enteric Coated 81 Mg Tablet.) 81 mg PO DAILY [facility] Last Admin: 02/04/25 07:57 Dose: 81 mg Documented By: DARIUS Atorvastatin Calcium (Atorvastatin Calcium 40 Mg Tablet) 40 mg PO BEDTIME [facility] Last Admin: 02/03/25 20:31 Dose: 40 mg Documented By: ANTHONY Dextrose (Dextrose 50 % 25 Gm/50 Ml Syringe) 25 gm IVPUSH Q15M PRN; Protocol PRN Reason: per Hypoglycemia Standing Ord. Last Admin: 02/01/25 05:56 Dose: 25 gm Documented By: VENANCIO Enoxaparin Sodium (Enoxaparin Sodium 40 Mg/0.4 Ml Syringe) 40 mg SUBCUT Q24H [facility] Last Admin: 02/03/25 16:53 Dose: 40 mg Documented By: REKHA Furosemide (Furosemide 40 Mg Tablet) 40 mg PO DAILY [facility]; Protocol Last Admin: 02/04/25 07:58 Dose: 40 mg Documented By: DARIUS Glucose (Glucose Gel 15 Gm Gel..Gram.) 15 gm PO Q15M PRN; Protocol PRN Reason: per Hypoglycemia Standing Ord. Hydroxyzine HCl (Hydroxyzine Hcl 50 Mg Tablet) 50 mg PO Q6H PRN PRN Reason: Anxiety Last Admin: 02/03/25 16:05 Dose: 50 mg Documented By: BENI Insulin Human Lispro (Insulin Lispro 100 Unit/Ml 3 Ml Vial) 0 unit SUBCUT QIDACHS [facility]; Protocol Last Admin: 02/04/25 12:14 Dose: Not Given Documented By: DARIUS Non-Admin Reason: Glucose out of range Losartan Potassium (Losartan Potassium 50 Mg Tablet) 50 mg PO DAILY [facility]; Protocol Last Admin: 02/04/25 07:59 Dose: 50 mg Documented By: DARIUS Meropenem (Meropenem 1 Gm Vial) 1 gm IVPUSH Q8H [facility] Last Admin: 02/04/25 12:14 Dose: 1 gm Documented By: DARIUS Omeprazole (Omeprazole 20 Mg Capsule.) 40 mg PO DAILY@0630 [facility] Last Admin: 02/04/25 05:55 Dose: 40 mg Documented By: ANTHONY Ondansetron HCl (Ondansetron Hcl 4 Mg/2 Ml Vial) 4 mg IVPUSH Q8H PRN PRN Reason: Nausea and Vomiting Prednisone (Prednisone 20 Mg Tablet) 20 mg PO DAILY [facility] Last Admin: 02/04/25 07:58 Dose: 20 mg Documented By: DARIUS Quetiapine Fumarate (Quetiapine Fumarate 50 Mg Tablet) 50 mg PO BID [facility] Last Admin: 02/04/25 07:58 Dose: 50 mg Documented By: DARIUS Theophylline (Theophylline Anhydrous Er 400 Mg Tab.Er.24h) 400 mg PO BID [facility] Last Admin: 02/04/25 07:58 Dose: 400 mg Documented By: DARIUS Tizanidine HCl (Tizanidine Hcl 4 Mg Tablet) 4 mg PO Q12H [facility] Last Admin: 02/04/25 12:14 Dose: 4 mg Documented By: DARIUS Topiramate (Topiramate 25 Mg Tablet) 50 mg PO BID [facility] Last Admin: 02/04/25 07:58 Dose: 50 mg Documented By: DARIUS Labs 02/04/25 06:44 02/04/25 06:44 Labs: Laboratory Results - last 24 hr 02/03/25 02/03/25 02/04/25 16:25 20:58 06:44 MCV 73.8 L MCH 21.3 L MCHC 28.9 L RDW 20.6 H Plt Count 369 MPV 9.0 L Immature Gran % (Auto) 0.4 Neut % (Auto) 82.0 H Lymph % (Auto) 12.8 L [place] % (Auto) 4.3 Eos % (Auto) 0.4 Baso % (Auto) 0.1 Lymph # (Auto) 1.4 [place] # (Auto) 0.5 Eos # (Auto) 0.0 Baso # (Auto) 0.0 Abs Immat Gran (auto) 0.04 H Absolute Neuts (auto) 9.3 H Absolute Nucleated RBC 0.000 Nucleated RBC % (auto) 0.0 VBG pH VBG pCO2 VBG pO2 VBG HCO3 VBG O2 Saturation VBG Base Excess Anion Gap 12 Estim Creat Clear Calc 100.0 Estimated GFR > 60 POC Glucose 119 H 188 H Random Glucose 259 H Calcium 8.7 Phosphorus 3.9 Magnesium 2.0 Iron 44 TIBC 248 % Saturation 18 Unsat Iron Binding 204 Ferritin 42 Albumin 3.9 02/04/25 02/04/25 02/04/25 06:49 06:57 10:55 MCV MCH MCHC RDW Plt Count MPV Immature Gran % (Auto) Neut % (Auto) Lymph % (Auto) [place] % (Auto) Eos % (Auto) Baso % (Auto) Lymph # (Auto) [place] # (Auto) Eos # (Auto) Baso # (Auto) Abs Immat Gran (auto) Absolute Neuts (auto) Absolute Nucleated RBC Nucleated RBC % (auto) VBG pH 7.40 VBG pCO2 45 VBG pO2 84 VBG HCO3 28 H VBG O2 Saturation 96.0 VBG Base Excess 3.0 Anion Gap Estim Creat Clear Calc Estimated GFR POC Glucose 228 H 147 H Random Glucose Calcium Phosphorus Magnesium Iron TIBC % Saturation Unsat Iron Binding Ferritin Albumin Microbiology Microbiology Results: Microbiology 01/30/25 07:04 Blood Culture - Final Blood - Venous No growth after 5 days. Assessment and Plan (1) COPD (chronic obstructive pulmonary disease): Status: Acute Plan d6, 54yo F with with COPD, HENRY, OHS, chronic respiratory failure on home O2 + BiPAP, DM2, HTN, HFpEF, GERD found unresponsive and admitted to ICU on BiPAP but then intubated for airway protection; also required pressor support; extubated 02/02 and stepped down to telemetry 02/03 acute hypoxic resp failure due to COPD exacerbation - home O2, night-time BiPAP, resume home dose of prednisone 20 mg/d, nebs, theophylline acute encephalopathy/toxic-metabolic - UDS negative, mental status now baseline anemia, chronic - improved after 1u pRBCs transfused 02/01/25 cardiogenic shock - resolved, was likely due to PPV HLD - statin HTN - losartan GERD - PPI mood disorder - topiramate, quetiapine DM2 - basal-bolus insulin hx cocaine abuse - encourage continued abstinence ESBL UTI from prior admission - continue meropenem [ertapenem at home via midline], end date 02/07 VTE ppx - enoxaparin dispo - PT eval In my clinical judgment, the patient requires continued inpatient hospitalization for the following reasons: post-ICU care Total time managing care of this patient today: 35 minutes. Quality Stroke Does the patient have a stroke diagnosis?: No VTE Prior VTE?: No VTE Risk Level:: Medical - moderate - high VTE Device Contraindication: N/A - Device Ordered VTE Drug Contraindication: N/A - Med Ordered
[2025-02-04 16:25] LABS: Glucose, Whole Blood 232 mg/dL (60-115)
--- NOTE | 2025-02-04 18:41 | PC.NURSE ---
P: Alteration in Comfort I: See nursing documentationand MD orders E: Pt reported pain per pain scale. PRN medication given with positive affect. Chest pain reported in am; MD notified, EKG and labs done, pt stated improvement in chest pain
[2025-02-04 20:48] LABS: Glucose, Whole Blood 127 mg/dL (60-115)
[2025-02-05] VITALS (7 sets, daily range): BP systolic 98–148; BP diastolic 53–74; PULSE 73–88; RESP 17–20; TEMP 36.1–36.3; O2SAT 91–97; BMI 34.9
[2025-02-05] MEDS: Albuterol/Iprat 2.5/0.5MG 3 ML AMPUL.NEB INHALE ×3 (02:48→11:29)
[2025-02-05 06:33] LABS: Venous Blood Gas Refer to POC result
[2025-02-05 06:38] LABS: VBG HCO3 33 mmol/L (22-26)
[2025-02-05 07:17] LABS: Anion Gap 12 (12-20); Blood Urea Nitrogen 20 mg/dL (9-16); Calcium 8.6 mg/dL (8.4-10.2); Carbon Dioxide 29 mmol/L (22-29); Chloride 106 mmol/L (96-108); Creatinine Clr Calc Pharmacy 95.5; Estimated Glomerular Filt Rate > 60; Potassium 3.6 mmol/L (3.3-5.1); Sodium 143 mmol/L (135-145)
[2025-02-05 07:37] LABS: Glucose, Whole Blood 131 mg/dL (60-115)
[2025-02-05] MEDS: Aspirin Enteric Coated 81 MG TABLET.DR PO (09:06)
[2025-02-05] MEDS: Theophylline Anhydrous ER 400 MG TAB.ER.24H PO (09:07)
--- NOTE | 2025-02-05 10:50 | MHC.CM.PN ---
Pt. has been medically cleared to [place], she will go home, where she lives with her dtr, via BLS and have home care services from [facility].
[2025-02-05 11:12] LABS: Glucose, Whole Blood 124 mg/dL (60-115)
--- NOTE | 2025-02-05 11:39 | P.DS_ITS ---
DS: Providers Provider Date of Service: 02/05/25 Date of admission: 01/30/25 08:58 Date of discharge: 02/05/25 Primary care physician: LORIE Lazcano- Consults: 02/04/25 02:50 Consult to Wound Care Routine Reason for consultation: ? director of medical review injury to bridge of nose DS: Diagnosis Discharge Diagnosis (1) COPD (chronic obstructive pulmonary disease): Status: Acute (2) COPD exacerbation: Status: Acute (3) Chronic anemia: Status: Acute (4) Cardiogenic shock: Status: Acute DS: Summary Hospital Course Hospital Course: From the history and physical by the admitting paraeducator Palomo Vee, 01/30/25: '54-year-old lady who is very noncompliant with treatment, drug abuser, who has 7th admission in the past 3 months with past medical history of chronic respiratory failure secondary to COPD on home oxygen, HENRY, obesity hypoventila tion syndrome, hypertension, diabetes mellitus, heart failure with preserved ejection fraction, GERD, Bustos's esophagus is brought into the ED after she was found unresponsive. She was discharged from the hospital 2 days ago, known to use IV drugs with pending urine drug screen. In the ED VBG showed pH of 7.27 with pCO2 in the 80s, placed on BiPAP but her mentation was very poor so had to be intubated and put on ventilator support so he is admitted to medical ICU. Post intubation she is also hypotensive needing Levophed support' 54yo F with with COPD, HENRY, OHS, chronic respiratory failure on home O2 + BiPAP, DM2, HTN, HFpEF, GERD found unresponsive and admitted to ICU on BiPAP but then intubated for airway protection; also required pressor support; extubated 02/02 and stepped down to telemetry 02/03. 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 feeder Dr Kessler in 2 weeks acute encephalopathy, metabolic - UDS negative, mental status now baseline; was likely due to hypoxia/hyperc arbia anemia, chronic - improved after 1u pRBCs transfused 02/01/25 cardiogenic shock - resolved, was likely due to PPV hx cocaine abuse - abstinent x 3 wk; encourage continued abstinence ESBL UTI from prior admission - continue meropenem [ertapenem at home via midline], end date 02/07, resume VNA services on discharge Time Attestation Discharge Coordination Time (in mins): 35 Quality: Safe Use of Opioids Does Pt have an Active Cancer Diagnosis on the Problem List?: No Quality: Stroke Does the patient have a stroke diagnosis?: No Physical Exam Vital Signs: Vital Signs: Last Vital Signs Temp 97.4 F 02/05/25 11:18 Pulse 88 02/05/25 11:31 Resp 18 02/05/25 11:31 BP 141/74 H 02/05/25 11:18 Pulse Ox 91 L 02/05/25 11:18 O2 Del Method Nasal Cannula 02/05/25 11:18 O2 Flow Rate 2 02/05/25 11:18 FiO2 24 02/05/25 03:21 Oxygen Flow Rate 3 01/30/25 06:10 BMI result Body Mass Index 34.9 Gen: in no acute distress HEENT: sclera anicteric, moist mucus membranes Neck: supple Lungs: diminished Heart: regular rate and rhythm, no murmurs Abd: soft, non-tender, non-distended Ext: no edema Skin: warm/well-perfused Neuro: alert and oriented x3, no focal findings Psych: appropriate affect DS: Data Data Completed and Pending Completed studies during hospitalization [Text1]: Laboratory Results WBC 11.3 X10*3/uL (4.8-10.8) H 02/04/25 06:44 RBC 4.27 X10*6/uL (4.20-5.50) 02/04/25 06:44 Hgb 9.1 g/dl (12.0-16.0) L 02/04/25 06:44 Hct 31.5 % (37.0-47.0) L 02/04/25 06:44 MCV 73.8 fL (80.0-98.0) L 02/04/25 06:44 MCH 21.3 pg (27.0-33.0) L 02/04/25 06:44 MCHC 28.9 g/dl (31.0-35.0) L 02/04/25 06:44 RDW 20.6 % (11.0-16.0) H 02/04/25 06:44 Plt Count 369 X10*3/uL (160-400) 02/04/25 06:44 MPV 9.0 fL (9.4-12.3) L 02/04/25 06:44 Immature Gran % (Auto) 0.4 % (0.0-0.4) 02/04/25 06:44 Neut % (Auto) 82.0 % (45-73) H 02/04/25 06:44 Lymph % (Auto) 12.8 % (20-40) L 02/04/25 06:44 Baldwin % (Auto) 4.3 % (2-11) 02/04/25 06:44 Eos % (Auto) 0.4 % (0-4) 02/04/25 06:44 Baso % (Auto) 0.1 % (0-2) 02/04/25 06:44 Lymph # (Auto) 1.4 X10*3/uL (1.2-4.9) 02/04/25 06:44 Baldwin # (Auto) 0.5 X10*3/uL (0.1-1.2) 02/04/25 06:44 Eos # (Auto) 0.0 X10*3/uL (0.0-0.4) 02/04/25 06:44 Baso # (Auto) 0.0 X10*3/uL (0.0-0.2) 02/04/25 06:44 Abs Immat Gran (auto) 0.04 X10*3/uL (0.00-0.03) H 02/04/25 06:44 Absolute Neuts (auto) 9.3 x10*3/uL (2.0-8.3) H 02/04/25 06:44 Absolute Nucleated RBC 0.000 X10*3/uL (0.0-0.012) 02/04/25 06:44 Nucleated RBC % (auto) 0.0 /100WBC (0.0-0.2) 02/04/25 06:44 Smear Path Review SEE NOTE 02/01/25 04:46 Hold Purple Top SEE NOTE 02/05/25 06:22 VBG pH 7.39 (7.32-7.43) 02/05/25 06:32 VBG pCO2 53 mmHg 02/05/25 06:32 VBG pO2 85 mmHg 02/05/25 06:32 VBG HCO3 33 mmol/L (22-26) H 02/05/25 06:32 VBG O2 Saturation TNP 02/05/25 06:32 VBG Base Excess 7.1 mmol/L 02/05/25 06:32 Sodium 143 mmol/L (135-145) 02/05/25 06:22 Potassium 3.6 mmol/L (3.3-5.1) D 02/05/25 06:22 Chloride 106 mmol/L (96-108) 02/05/25 06:22 Carbon Dioxide 29 mmol/L (22-29) 02/05/25 06:22 Anion Gap 12 (12-20) 02/05/25 06:22 BUN 20 mg/dL (9-16) H 02/05/25 06:22 Creatinine 0.62 mg/dL (0.5-1.4) 02/05/25 06:22 Estim Creat Clear Calc 95.5 02/05/25 06:22 Estimated GFR > 60 02/05/25 06:22 POC Glucose 124 mg/dL (60-115) H 02/05/25 11:01 Random Glucose 133 mg/dL (60-115) H 02/05/25 06:22 Lactic Acid 0.7 mmol/L (0.5-2.0) 01/30/25 07:04 Calcium 8.6 mg/dL (8.4-10.2) 02/05/25 06:22 Phosphorus 3.9 mg/dL (2.7-4.5) 02/04/25 06:44 Magnesium 2.0 mg/dL (1.6-2.6) 02/04/25 06:44 Iron 44 mcg/dL (30-160) 02/04/25 06:44 TIBC 248 mcg/dL (228-428) 02/04/25 06:44 % Saturation 18 % (15-50) 02/04/25 06:44 Unsat Iron Binding 204 ug/dL 02/04/25 06:44 Ferritin 42 ng/mL (10-250) 02/04/25 06:44 Total Bilirubin 0.2 mg/dL (0.0-1.0) 02/01/25 04:46 Direct Bilirubin < 0.2 mg/dL (0.0-0.5) 01/30/25 07:04 AST 12 U/L (5-31) 02/01/25 04:46 ALT 8 U/L (0-31) 02/01/25 04:46 Alkaline Phosphatase 55 U/L (39-117) 02/01/25 04:46 Troponin I High Sens 9.4 ng/L (<3.5-17.0) 02/04/25 12:18 B-Natriuretic Peptide 78 pg/mL (<100) 01/30/25 07:04 Total Protein 6.1 g/dL (6.5-8.0) L 02/01/25 04:46 Albumin 3.9 g/dL (3.5-5.0) 02/04/25 06:44 Urine Color Yellow 01/30/25 11:11 Urine Appearance Clear 01/30/25 11:11 Urine pH 7.0 (5.0-9.0) 01/30/25 11:11 Ur Specific [place] 1.010 (1.005-1.025) 01/30/25 11:11 Urine Protein Negative mg/dL (Neg-Trace) 01/30/25 11:11 Urine Glucose (UA) Negative mg/dL (Negative) 01/30/25 11:11 Urine Ketones Negative mg/dL (Negative) 01/30/25 11:11 Urine Blood Negative (Negative) 01/30/25 11:11 Urine Nitrite Negative (Negative) 01/30/25 11:11 Ur Leukocyte Esterase Negative (Negative) 01/30/25 11:11 Urine RBC 0-2 /HPF (0-2) 01/30/25 11:11 Urine WBC 0-5 /HPF (0-5) 01/30/25 11:11 Ur Squamous Epith Cells 0-2 /HPF (0-2) 01/30/25 11:11 Urine Bacteria None Seen (None Seen) 01/30/25 11:11 Hyaline Casts 0-2 /LPF (0-2) 01/30/25 11:11 Nasal Screen MRSA (PCR) NEGATIVE (Negative) 01/30/25 12:23 Nasal S. aureus Screen NEGATIVE (Negative) 01/30/25 12:23 Nasal MRSA/S.aureus Interp SEE NOTE 01/30/25 12:23 Stool Occult Blood NEGATIVE (NEGATIVE) 02/02/25 12:55 Urine Opiates Screen Not Detected (Not Detect) 01/30/25 11:11 Ur Buprenorphine Scrn Not Detected ng/mL (Not Detect) 01/30/25 11:11 Ur Oxycodone Screen Not Detected ng/mL (Not Detect) 01/30/25 11:11 Urine Methadone Screen Not Detected ng/mL (Not Detect) 01/30/25 11:11 Urine Fentanyl Screen Not Detected (Not Detect) 01/30/25 11:11 Ur Barbiturates Screen Not Detected (Not Detect) 01/30/25 11:11 Ur Phencyclidine Scrn Not Detected (Not Detect) 01/30/25 11:11 Ur Amphetamines Screen Not Detected (Not Detect) 01/30/25 11:11 U Benzodiazepines Scrn Not Detected (Not Detect) 01/30/25 11:11 Urine Cocaine Screen Not Detected (Not Detect) 01/30/25 11:11 U Marijuana (THC) Screen Not Detected (Not Detect) 01/30/25 11:11 Respiratory Panel Keys See Note 01/30/25 12:23 Adenovirus (Rapid PCR) Not Detected (Not Detect.) 01/30/25 12:23 B.pert (TEM-PCR) Not Detected (Not Detect.) 01/30/25 12:23 B.parapertussis DNA PCR Not Detected (Not Detect.) 01/30/25 12:23 C. pneumoniae DNA (PCR) Not Detected (Not Detect.) 01/30/25 12:23 Coronavirus OC43 (PCR) Not Detected (Not Detect.) 01/30/25 12:23 Coronavirus HKU1 (PCR) Not Detected (Not Detect.) 01/30/25 12:23 Coronavirus 229E (PCR) Not Detected (Not Detect.) 01/30/25 12:23 Coronavirus NL63 (PCR) Not Detected (Not Detect.) 01/30/25 12:23 Human Metapneumovir PCR Not Detected (Not Detect.) 01/30/25 12:23 Influenza A (RT-PCR) Not Detected (Not Detect.) 01/30/25 12:23 Influenza A (H1) PCR Not Detected (Not Detect.) 01/30/25 12:23 Influ A (H1/09) PCR Not Detected (Not Detect.) 01/30/25 12:23 Influenza A (H3) PCR Not Detected (Not Detect.) 01/30/25 12:23 Influenza Type A (PCR) NEGATIVE (Negative) 01/30/25 07:04 Influenza B (RT-PCR) Not Detected (Not Detect.) 01/30/25 12:23 Influenza Type B (PCR) NEGATIVE (Negative) 01/30/25 07:04 M. pneumoniae (PCR) Not Detected (Not Detect.) 01/30/25 12:23 Parainfluenza 1 (PCR) Not Detected (Not Detect.) 01/30/25 12:23 Parainfluenza 2 (PCR) Not Detected (Not Detect.) 01/30/25 12:23 Parainfluenza 3 (PCR) Not Detected (Not Detect.) 01/30/25 12:23 Parainfluenza 4 (PCR) Not Detected (Not Detect.) 01/30/25 12:23 RSV (PCR) Not Detected (Not Detect.) 01/30/25 12:23 RSV RNA Qual (PCR) NEGATIVE (Negative) 01/30/25 07:04 Entero/Rhino (PCR) Detected (Not Detect.) A 01/30/25 12:23 SARS-CoV-2 RNA (RT-PCR) Not Detected (Not Detect.) 01/30/25 12:23 Blood Type B Negative 02/01/25 06:27 Antibody Screen NEGATIVE 02/01/25 06:27 Crossmatch See Detail 02/01/25 06:27 Crossmatch (AHG) See Detail 02/01/25 06:27 Discharge Plan Discharge Anticipated Discharge Date/Time: 02/05/25 11:30 Patient Disposition: Home Health Service Discharge Diagnosis: respiratory failure due to COPD/OHS/HENRY ESBL UTI Referrals: Joe Hale FNP-JERI [Primary Care Provider, Internal Medicine] - 1 Week Kolby Kessler MD [Physician, Pulmonology] - 2 Weeks Discharge Medications: New ertapenem 1 gram recon soln 1 g IV DAILY Continued (DME) cane Device See Rx Instructions .Route Qty: 1 0RF Rx Instructions: Standard cane (DME) Rollator walker See Rx Instructions .Route .MEDSUPPLY Qty: 1 0RF Rx Instructions: As directed (DME) pulse oximeter See Rx Instructions .Route .MEDSUPPLY Qty: 1 0RF Rx Instructions: As directed (DME) FreeStyle Jemima 3 [place] Misc See Rx Instructions .Route Qty: 1 0RF Rx Instructions: To monitor blood sugar 4 times per day albuterol sulfate 2.5 mg /3 mL (0.083 %) solution for nebulization 2.5 mg inhalation Q4H PRN (Reason: Shortness Of Breath/Wheezing) Qty: 180 6RF theophylline 400 mg tablet extended release 24 hr 400 mg PO BID 90 Days Qty: 180 4RF albuterol sulfate [Ventolin HFA] 90 mcg/actuation HFA aerosol inhaler 2 puff inhalation Q6H PRN (Reason: for wheezing) Qty: 1 6RF acetaminophen 650 mg tablet extended release 650 mg PO Q12H PRN (Reason: pain) 30 Days Qty: 60 0RF aspirin 81 mg tablet,delayed release (DR/EC) 81 mg PO DAILY 90 Days Qty: 90 1RF atorvastatin 40 mg tablet 40 mg PO BEDTIME Qty: 90 0RF (DME) FreeStyle Lite Strips Strip See Rx Instructions .ROUTE .MEDSUPPLY Qty: 100 1RF Rx Instructions: Use to check blood sugar daily or if symptomatic hypo/hypergylcemia calcium carbonate-vitamin D3 500 mg-10 mcg (400 unit) tablet 1 tab PO DAILY Qty: 90 0RF (DME) 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 meter [FreeStyle Lite Meter] Kit See Rx Instructions .ROUTE .MEDSUPPLY Qty: 1 0RF Rx Instructions: Use to check blood sugar daily or if symptomatic for hypo/hyperglycemia esomeprazole magnesium 40 mg capsule,delayed release(DR/EC) 40 mg PO DAILY@0630 Qty: 90 1RF fexofenadine [Elisabeth Allergy] 180 mg tablet 180 mg PO DAILY Qty: 30 3RF glucose 4 gram tablet,chewable 16 g PO Q15M MDD 8 tabs PRN (Reason: hypoglycemia) Qty: 100 1RF Rx Instructions: until symptoms of low blood sugar are controlled ibuprofen 800 mg tablet 800 mg PO BID PRN (Reason: Headache) 30 Days Qty: 60 0RF Rx Instructions: please use sparingly due to diabetes (DME) lancets [FreeStyle Lancets] 28 gauge misc See Rx Instructions .ROUTE .MEDSUPPLY Qty: 100 1RF Rx Instructions: Use to check blood sugar daily or if symptomatic hypo/hypergylcemia losartan 50 mg tablet 50 mg PO DAILY Qty: 90 0RF (DME) FreeStyle Jemima 3 Plus Sensor Device See Rx Instructions .Route Qty: 2 5RF Rx Instructions: To monitor blood sugars 4 times per day. Change sensor every 15 days (DME) pen needle, diabetic 31 gauge x 5/16 needle See Rx Instructions .Route Qty: 100 0RF Rx Instructions: Use to inject insulin once a day gabapentin 800 mg tablet 800 mg PO QID 30 Days Qty: 120 1RF tizanidine 4 mg tablet 4 mg PO Q12H 30 Days Qty: 60 0RF Rx Instructions: do not take concurrently with famotidine (DME) walker Misc See Rx Instructions .Route Qty: 1 0RF Rx Instructions: As directed dextrose [Glucose Gel] 40 % gel 10 g PO Q15M PRN (Reason: hypoglycemia) Qty: 300 0RF Rx Instructions: until symptoms of low blood sugar are controlled glucagon HCl [Glucagon (HCl) Emergency Kit] 1 mg recon soln 1 mg subcut Q20M PRN (Reason: hypoglycemia) Qty: 1 0RF Rx Instructions: until target blood sugar attained Stiolto Respimat 2.5-2.5 mcg/actuation mist 2 puff inhalation DAILY naloxone [Narcan] 4 mg/actuation spray,non-aerosol 4 mg intranasal Q2M PRN (Reason: opioid overdose) Qty: 2 0RF Rx Instructions: spray 1 dose into ONE nostril; alternate nostrils w each dose until help arrives insulin glargine [Lantus Solostar U-100 Insulin] 100 unit/mL (3 mL) insulin pen 16 unit subcut BEDTIME quetiapine 50 mg tablet 50 mg PO BID topiramate 25 mg tablet 50 mg PO BID Rx Instructions: take one tab twice daily for one week, then increase to 2 tabs twice daily sertraline 100 mg tablet 100 mg PO BID guaifenesin 100 mg/5 mL Liquid 100 mg PO Q4H PRN (Reason: Cough) Qty: 1000 0RF ipratropium-albuterol 0.5 mg-3 mg(2.5 mg base)/3 mL solution for nebulization 3 ml INHALATION QID PRN (Reason: Shortness Of Breath Or Wheezing) furosemide 20 mg tablet 40 mg PO DAILY prednisone 20 mg tablet 20 mg PO DAILY Rx Instructions: 40mg daily for 5 days, then 20mg daily for 5 days glipizide 5 mg tablet 5 mg PO DAILY Discharge Orders: Discharge Order (Routine); Ordered 02/05/25 Ordered By: John Andrade Diet: Diabetic diet Activity on Discharge: As tolerated Stand Alone Forms: Patient Portal Discharge page, Work/School Release Print Language: Georgian Care Plan Goals: respiratory health Health Concerns: respiratory failure due to COPD/OHS/HENRY ESBL UTI Plan of Treatment: resume home prednisone, inhalers, BiPAP, and oxygen; follow up with Dr Kessler in 2 weeks continue ertapenem 1 gram IV daily via midline catheter; end date 02/07; remove midline catheter afterwards Assessment: See Discharge Summary. Patient Instructions: Cocaine Use Disorder (GEN), COPD (Chronic Obstructive Pulmonary Disease) (ED), Chronic Lung Disease and Infection Prevention (ED)
== END 2025-02-05 11:53 | disposition home health service (06) | DRG 140 ==
LOC: HO.ED 08:23 → HO.EDOVER 09:06 → HO.ICU 09:27 → HO.IMC 02-03 13:52
PROVIDERS: Internal Medicine Cardiovascular Disease; Internal Medicine Pulmonary Disease; Physician Assistant Medical; Admitting Provider Internal Medicine Critical Care Medicine; Emergency Provider Emergency Medicine; PCP Nurse Practitioner Family; Visit Provider Family Medicine
DX: J44.1 Chronic obstructive pulmonary disease with (acute) exacerbation (principal); J96.21 Acute and chronic respiratory failure with hypoxia; R57.0 Cardiogenic shock; G92.8 Other toxic encephalopathy; E66.2 Morbid (severe) obesity with alveolar hypoventilation; E11.9 Type 2 diabetes mellitus without complications; D64.9 Anemia, unspecified; I50.32 Chronic diastolic (congestive) heart failure; I11.0 Hypertensive heart disease with heart failure; N39.0 Urinary tract infection, site not specified; F14.10 Cocaine abuse, uncomplicated; Z16.12 Extended spectrum beta lactamase (ESBL) resistance; Z99.81 Dependence on supplemental oxygen; Z20.822 Contact with and (suspected) exposure to COVID-19; Z68.34 Body mass index [BMI] 34.0-34.9, adult; Z79.4 Long term (current) use of insulin; Z79.52 Long term (current) use of systemic steroids; Z79.82 Long term (current) use of aspirin; Z79.84 Long term (current) use of oral hypoglycemic drugs; Z79.899 Other long term (current) drug therapy
CPT/HCPCS: 36415; 71045; 80048; 80053; 80076; 80307; 81001; 82040; 82272; 82728; 82803; 82947; 83540; 83605; 83735; 83880; 84100; 84484; 85014; 85018; 85025; 86850; 86900; 86901; 86920; 86922; 87040; 87205; 87633; 87637; 87640; 87641; 93005; 94002; 94003; 94640; 94799; 97161; 99285; J1335; J1650; J2185; J2250; J2270; J2470; J2704; J2919; J3010; J3360; J3475; P9016; P9047

== ENCOUNTER → 2025-01-30 06:11 | Outpatient (BNV) | payer OTHER, SELFPAY | PROVIDERS: Admitting Provider Internal Medicine Critical Care Medicine; Emergency Provider Emergency Medicine; PCP Nurse Practitioner Family; Visit Provider Internal Medicine Cardiovascular Disease | DX: R94.31 Abnormal electrocardiogram [ECG] [EKG] (principal) | CPT/HCPCS: 93010 ==

== ENCOUNTER → 2025-01-30 07:00 | Outpatient (BNV) | payer OTHER, SELFPAY | PROVIDERS: Emergency Provider Emergency Medicine; PCP Nurse Practitioner Family; Visit Provider Specialist | DX: R00.1 Bradycardia, unspecified (principal); Z95.9 Presence of cardiac and vascular implant and graft, unspecified | CPT/HCPCS: 71045 ==

== ENCOUNTER 2025-01-30 08:58 | Outpatient (BNV) | payer OTHER, SELFPAY | END 2025-02-04 09:28 | PROVIDERS: Admitting Provider Internal Medicine Critical Care Medicine; Emergency Provider Emergency Medicine; PCP Nurse Practitioner Family; Visit Provider Internal Medicine | DX: Z13.6 Encounter for screening for cardiovascular disorders (principal) | CPT/HCPCS: 93010 ==

== ENCOUNTER → 2025-01-30 08:58 | Outpatient (BNV) | payer OTHER, SELFPAY | PROVIDERS: Admitting Provider Internal Medicine Critical Care Medicine; Emergency Provider Emergency Medicine; PCP Nurse Practitioner Family; Visit Provider Internal Medicine Pulmonary Disease | DX: J44.1 Chronic obstructive pulmonary disease with (acute) exacerbation (principal) | CPT/HCPCS: 99232; 99291 ==

== ENCOUNTER → 2025-01-30 08:58 | Outpatient (BNV) | payer OTHER, SELFPAY | PROVIDERS: Admitting Provider Internal Medicine Critical Care Medicine; Emergency Provider Emergency Medicine; PCP Nurse Practitioner Family; Visit Provider Internal Medicine Critical Care Medicine | DX: J44.1 Chronic obstructive pulmonary disease with (acute) exacerbation (principal); E11.65 Type 2 diabetes mellitus with hyperglycemia; E11.42 Type 2 diabetes mellitus with diabetic polyneuropathy; F14.90 Cocaine use, unspecified, uncomplicated; J96.01 Acute respiratory failure with hypoxia | CPT/HCPCS: 99291 ==

== ENCOUNTER → 2025-01-30 08:58 | Outpatient (BNV) | payer OTHER, SELFPAY | PROVIDERS: Admitting Provider Internal Medicine Critical Care Medicine; Emergency Provider Emergency Medicine; PCP Nurse Practitioner Family; Visit Provider Family Medicine | DX: J44.1 Chronic obstructive pulmonary disease with (acute) exacerbation (principal); R57.0 Cardiogenic shock; D64.9 Anemia, unspecified | CPT/HCPCS: 99232; 99239 ==

== ENCOUNTER → 2025-02-15 07:59 | Outpatient (REF) | payer OTHER, SELFPAY ==
--- NOTE | ~2025-02-15 | NM_ITS ---
Dobutamine MYOCARDIAL PERFUSION STUDY INDICATION: Chest pain TECHNIQUE: The patient was brought in for an exercise perfusion study on 02/15/2025. Patient performed dobutamine as per protocol and was injected 25 mCi of sestamibi once target heart rate was achieved. Images were obtained using the SPECT gamma camera interlaced with the gating device. Images were obtained in supine position. Resting perfusion study was performed on 02/16/2025. Patient was administered 25 mCi of sestamibi intravenously at rest. Images were then obtained in supine position. Images obtained without without CT attenuation. Total DLP 95 mGy-cm. Images were processed with the software and compared side to side in short axis, horizontal long axis and vertical long axis views. FINDINGS: Raw images were reviewed The stress perfusion study showed nonattenuated images show mildly reduced uptake in the distal lateral and apical wall of the LV myocardium. Remainder of the LV myocardium is normally perfused. Attenuated corrected images show mildly reduced uptake in the apex of the LV myocardium. The gated study performed due to irregular heartbeat. LV cavity is normal in size. Resting study shows perfusion pattern compared to stress perfusion study. Gating at rest was not performed due to irregular heartbeat. The findings are consistent with no reversible defect suggestive of ischemia. NM/NM yariel perf SPECT rest & str IMPRESSION: 1. Myocardial perfusion imaging study shows likely normal myocardial perfusion. 2. Gated LVEF is not assessed. 3. Transient ischemic dilatation not present. EKG revealed negative for ischemia at heart rate achieved. Electronically signed by: Ignacio Cintron MD 02/16/2025 04:19 PM EDT
--- NOTE | 2025-02-15 08:05 | CA_ITS ---
Acquisition Time: 2025-02-15 08:38:53 Total Exercise Time: 00:20:11 Test Indications: CARDIOMYOPATHY Medications: SEE H&P Protocol: DOBUTAMINE Max HR: 127 BPM 77% of Pred: 164 BPM Max BP: 120/80 mmHG Max Work Load: 1.0 METS Pharmacologicalstress test with Dobutamine max infusion at 40mcg/kg/min, achieving 76% MPHR, with reports of 8/10 mid chest tightness and dizziness, with very frequent PACs- max atrial runs of 4 beats and isolated PVCs, with normotensive response to infusion. Without any EKG changes meeting criteria for ischemia. In recovery, HR returned to baseline. Chest tightness and dizziness resolved. Nuclear images pending. Test reviewed with Dr. Cintron. Referred By: Ignacio Cintron Electronically Signed By: Carlos A Ruff
== END ==
LOC: HO.CARD 07:59
PROVIDERS: PCP Nurse Practitioner Family; Visit Provider Internal Medicine Cardiovascular Disease
DX: I50.9 Heart failure, unspecified (principal); R07.89 Other chest pain
CPT/HCPCS: 78452; 93017; A9500; J1250

== ENCOUNTER → 2025-02-15 08:05 | Outpatient (BNV) | payer OTHER, SELFPAY | PROVIDERS: PCP Nurse Practitioner Family | DX: R07.9 Chest pain, unspecified (principal); I49.1 Atrial premature depolarization; I49.3 Ventricular premature depolarization | CPT/HCPCS: 78452; 93016; 93018 ==

== ENCOUNTER 2025-02-16 13:52 | Outpatient (AMB) | payer OTHER, SELFPAY ==
--- NOTE | 2025-02-16 14:05 | A.OFFVISCC_ITS ---
<Statement entered by Lourdes Christiansen RN - 02/16/25 14:28> Marika was seen by Addiction consult service during a previous admission at which time she was started on Topiramate. An internal text was received from a different specialty provider requesting medication management information for Marika. Walk in information and phone numbers for [facility] were relayed. Marika arrived shortly after as a walk in for MAT treatment. Intake Visit Reasons: MAT Intake Allergies doxycycline Allergy (Severe, Verified 01/30/25 06:14) Swelling varenicline (From CHANTIX) Allergy (Severe, Verified 01/30/25 06:14) ANAPHYLAXIS azithromycin Allergy (Intermediate, Verified 01/30/25 06:14) Rash barium sulfate Allergy (Intermediate, Verified 01/30/25 06:14) angioedema cetirizine Allergy (Mild, Verified 01/30/25 06:14) Rash famotidine Allergy (Mild, Verified 01/30/25 06:14) Rash linaclotide (Linzess) Allergy (Mild, Verified 01/30/25 06:14) Rash HPI Comments Details: A 54-year-old female presents with daughter for a MAT intake for stimulant use disorder. Reports two months of remission with the assistance of topiramate. Is living with daughter that is assisting with coordination of care and emotional support. The patient is requesting an increase in dose, the patient nor daughter are aware of current dose. T/w will verify with pharmacy and reorder the current dose with a plan to follow up in one month and make dose adjustments as needed at the follow up visit. Physical Exam Const General: cooperative Orientation/consciousness: patient oriented x3 Limitations: physical limitations and ambulation with walker Neuro General: patient oriented x3 Psych Appearance: grossly normal Mental Status: mental status grossly normal Speech and movement: Normal speech and movement present Affect: Animated affect present Attitude: cooperative Thought process: Circumstantial thought process present Thought content: Normal thought content present Insight: Fair insight present (Psych) Judgement: Fair judgement present (Psych) [facility] Medical History (Updated 02/17/25 @ 09:08 by ROSAS GimenezC) Supplemental oxygen dependent Urinary tract infection due to ESBL Klebsiella Chronic lung disease Chronic lung disease Chronic lung disease BAHMAN (generalized anxiety disorder) COPD (chronic obstructive pulmonary disease) Cocaine use disorder Cocaine abuse GERD (gastroesophageal reflux disease) Constipation Non-insulin dependent type 2 diabetes mellitus HENRY (obstructive sleep apnea) Acute exacerbation of chronic obstructive airways disease Asthma with exacerbation Obesity hypoventilation syndrome Chronic lung disease Hypoxic respiratory failure Nocturnal hypoxemia Diabetes mellitus COPD exacerbation Crack cocaine use Hyperkalemia Metabolic acidosis Leukocytosis Chest discomfort Chronic renal failure, stage 2 (mild) SOB (shortness of breath) Asthma Smoker Rotator cuff tendonitis GERD (gastroesophageal reflux disease) Chronic idiopathic constipation Bustos's esophagus Depression High triglycerides Gastroparesis Carpal tunnel syndrome of right wrist Nausea & vomiting Hernia Acute and chronic respiratory failure, unspecified whether with hypoxia or hy percapnia HTN (hypertension) Obesity (BMI 30-39.9) Knee pain, bilateral Surgical History History of cholecystectomy (~1988) History of carpal tunnel release Hx of tubal ligation History of pubovaginal sling (~2015) History of umbilical hernia repair (~2001) Hx of section History of open reduction and internal fixation (ORIF) procedure History of esophagogastroduodenoscopy (EGD) Family History Father Heart disease HENRY (obstructive sleep apnea) Family history of breast cancer Mother Asthma Emphysema, unspecified Bronchitis Smoker Alcoholism Bone marrow disease Maternal Grandmother Diabetes Social History Household Members: Unknown / Unable to assess Household Members Other:: daughter Housing: House Housing Other:: 3 family house Are you a primary family day care worker to a significant other at home: No Do you presently have visiting nurse or other home services: Yes Unable to assess alcohol history related to: Unknown Alcohol intake: never Comment: refusing socks Patient Tobacco Use Status: Tobacco use Unknown Tobacco use type: Cigarette Cigarette Packs Per Day: 0.5 Cigarettes Per Day: 10 Years Smoked: 40 e-Cigarette/Vaping Use: Currently Using Second Hand Smoke Exposure: Yes Substance Use Type: Crack/Cocaine Advance Directives Date on File: 12/19/23 service: No Current occupational status: disabled 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 Assessment & Plan Assessment & Plan (1) Stimulant use disorder: Code(s): F15.90 - Other stimulant use, unspecified, uncomplicated Category: Medical Plan The plan of care is to continue with topiramate as previously ordered. Information and phone number provided for [facility] stimulant treatment program to follow up with engaging in services. Follow up in one month or sooner if needed. Medications: New topiramate Take one tablet by mouth twice per day. 25 mg PO BID 60 tabs 0RF 30 days Patient Instructions: - Continue with topiramate as prescribed. - Call [facility] for stimulant treatment program. - Follow up in one month or sooner if needed. - Call with questions, concerns, or to report side effects/new onset of symptoms to [facility]. - The patient verbalized understanding and agreed with plan of care. MAT Intake Nursing Intake Reason for visit: Intake Are you currently using?: No When was your last use?: 2 months ago How much?: alot What is your current relationship status?: single Current PCP: Joe Hale Date of last visit: 09/16/24 Referral Source: Inpatient care Substance Abuse History Substance Abuse History (includes route, frequency and quantity): Cocaine, Alcohol and Tobacco Age of first use: 18 Social History Children: yes Do you have a support system?: yes Current mode of transportation?: daughter Where are you currently residing?: [facility] [place] [facility] Use Have you ever shared needles?: No Have you ever belonged to a needle exchange program?: No Do you buy needles at a pharmacy?: No Have you ever overdosed?: No Number of lifetime overdoses: 0 Have you ever been hospitalized for an overdose?: No Was Naloxone administered?: No Recovery History Have you had any periods of recovery?: No (Not longer than current) What is your longest time in recovery?: 2 months When was the last time you were in recovery?: current Have you ever had inpatient treatment for your substance abuse disorder?: No Have you been in an inpatient detoxification program?: No Have you been in an inpatient Rehab/[place] house?: No Have you been in an outpatient Methadone Maintenance program?: No Have you been in an outpatient Suboxone Maintenance program?: No Have you been in an AA/NA support program?: Yes Have you had a Recovery Support Trainman?: Yes Have you had Peer Support?: Yes Behavioral Health History Do you have a current provider? If so, who?: no- in process of obtaining diagnosis: self reported depression and anxiety History of other addictive behavior: no History of inpatient psychiatric hospitalization? If so, how many? Most Recent? Where?: no History of self harming thoughts?: No History of homicidal or suicidal intentions?: No Medical Conditions Endocarditis?: No Skin Infection: No Seizure related to withdrawal or overdose: No Head or brain injury: No Hepatitis A (if yes, have you been treated?): No Hepatitis B (if yes, have you been treated?): No Hepatitis C (if yes, have you been treated?): No HIV (if yes, have you been treated?): No TB (if yes, have you been treated?): No Other: Yes (CHF, DM T2) Do you have any chronic pain conditions?: yes Legal History History of incarceration: No Currently on parole or probation: No Court mandated programs: No Pending court cases: No DCF involvement: No
== END 2025-02-16 14:16 | disposition home or self-care (01) ==
LOC: HO.HCC 13:52
PROVIDERS: PCP Nurse Practitioner Family; Visit Provider Clinical Nurse Specialist Psychiatric/Mental Health
DX: F15.90 Other stimulant use, unspecified, uncomplicated (principal)
CPT/HCPCS: 99203

== ENCOUNTER → 2025-02-16 13:52 | Outpatient (BNVA) | payer OTHER, SELFPAY | PROVIDERS: PCP Nurse Practitioner Family; Visit Provider Clinical Nurse Specialist Psychiatric/Mental Health | DX: F15.90 Other stimulant use, unspecified, uncomplicated (principal); Z79.899 Other long term (current) drug therapy | CPT/HCPCS: 99202 ==

== ENCOUNTER 2025-02-19 09:10 | Outpatient (AMB) | payer OTHER, SELFPAY ==
[2025-02-19 09:26] VITALS: BP 90/62; PULSE 82; BMI 34.6
--- NOTE | 2025-02-19 09:26 | A.OFFVIS_ITS ---
Vital Signs 02/19/25 09:26 Height 5 ft Weight 177 lb 4.026 oz BMI 34.6 BP 90/62 Blood Pressure Location Rt brachial Position Sitting Pulse 82 Pulse Source Monitor Intake Visit Reasons: f/u after testing Generation Mechanic Helper Required: No Piped Buttonhole Machine Operator: Piped Buttonhole Machine Operator Present Allergies doxycycline Allergy (Severe, Verified 02/19/25 09:29) Swelling varenicline (From CHANTIX) Allergy (Severe, Verified 02/19/25 09:29) ANAPHYLAXIS azithromycin Allergy (Intermediate, Verified 02/19/25 09:29) Rash barium sulfate Allergy (Intermediate, Verified 02/19/25 09:29) angioedema cetirizine Allergy (Mild, Verified 02/19/25 09:29) Rash famotidine Allergy (Mild, Verified 02/19/25 09:29) Rash linaclotide (Linzess) Allergy (Mild, Verified 02/19/25 09:29) Rash Medication List - Last Reconciled 02/19/25 by Lourdes Mei, SENIOR COST ACCOUNTANT-C acetaminophen ER 650 mg PO Q12H PRN 30 days albuterol sulfate 90 mcg/actuation (Ventolin HFA) 2 puffs inhalation Q6H PRN albuterol sulfate 2.5 mg (3 mL) inhalation Q4H PRN aspirin 81 mg PO DAILY 90 days atorvastatin 40 mg PO BEDTIME blood sugar diagnostic (FreeStyle Lite Strips) Use to check blood sugar daily or if symptomatic hypo/hypergylcemia 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 meter (FreeStyle Lite Meter kit) Use to check blood sugar daily or if symptomatic for hypo/hyperglycemia cane Standard cane dextrose 40% (Glucose Gel) 10 grams PO Q15M PRN ertapenem 1 g IV DAILY ertapenem 1 g IV DAILY esomeprazole magnesium 40 mg PO DAILY@0630 fexofenadine (Elisabeth Allergy) 180 mg PO DAILY FreeStyle Jemima 3 Plus Sensor (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 sensor) To monitor blood sugars 4 times per day. Change sensor every 15 days NS FreeStyle Jemima 3 [place] (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,automotive repair technician,cont) To monitor blood sugar 4 times per day NS furosemide 40 mg PO DAILY gabapentin 800 mg PO QID 30 days glipizide 5 mg PO DAILY glucagon HCl (Glucagon (HCl) Emergency Kit) 1 mg subcut Q20M PRN glucose 16 grams (4 x 4 gram) PO Q15M PRN MDD 8 tabs guaifenesin 100 mg (5 mL) PO Q4H PRN ibuprofen 800 mg PO BID PRN 30 days insulin glargine (Lantus Solostar U-100 Insulin) 16 units subcut BEDTIME ipratropium-albuterol 0.5 mg-3 mg(2.5 mg base)/3 mL 3 mL inhalation QID PRN lancets (FreeStyle Lancets) Use to check blood sugar daily or if symptomatic hypo/hypergylcemia losartan 50 mg PO DAILY pen needle, diabetic Use to inject insulin once a day prednisone 20 mg PO DAILY [pulse oximeter As directed] quetiapine 50 mg PO BID [Rollator walker As directed] sertraline 100 mg PO BID theophylline ER 400 mg PO BID 90 days tiotropium-olodaterol 2.5-2.5 mcg/actuation (Stiolto Respimat) 2 puffs inhalation DAILY tizanidine 4 mg PO Q12H 30 days topiramate 50 mg PO BID 30 days walker As directed HPI HPI f/u after testing: Details: Marika is a 54-year-old female past medical history of obesity, diabetes, hypertension, hyperlipidemia, sleep apnea, drug abuse, smoking, COPD, newer Congestive heart failure with echo findings of stress-induced cardiomyopathy who has had repeated [facility] admissions for COPD exacerbation and now presents here for follow-up. Today she reports that she has been doing well since her hospital discharge 2 weeks ago. She has chronic shortness of breath but states her breathing is stable. She wears oxygen as needed. She should be wearing it more but she does admit to still smoking a pack of cigarettes per day. She says she has not used any cocaine in the last month. She has tightness feeling in her chest when she has her shortness of breath. No other types of chest discomfort. No heart palpitations, lightheadedness, presyncope, syncope. No PND, she does sleep with her head of the bed elevated. She does get mild leg edema at times. She reports compliance with her medications. Her daughter is present and states that her mother is now staying with her and she is helping to ensure compliance and better health. Patient tells me she will be seeing a surgeon in the near future to evaluate her abdominal hernias which cause her discomfort. She is hoping to have surgery on them. [facility] Medical History Supplemental oxygen dependent Urinary tract infection due to ESBL Klebsiella Chronic lung disease Chronic lung disease Chronic lung disease BAHMAN (generalized anxiety disorder) COPD (chronic obstructive pulmonary disease) Cocaine use disorder Cocaine abuse GERD (gastroesophageal reflux disease) Constipation Non-insulin dependent type 2 diabetes mellitus HENRY (obstructive sleep apnea) Acute exacerbation of chronic obstructive airways disease Asthma with exacerbation Obesity hypoventilation syndrome Chronic lung disease Hypoxic respiratory failure Nocturnal hypoxemia Diabetes mellitus COPD exacerbation Crack cocaine use Hyperkalemia Metabolic acidosis Leukocytosis Chest discomfort Chronic renal failure, stage 2 (mild) SOB (shortness of breath) Asthma Smoker Rotator cuff tendonitis GERD (gastroesophageal reflux disease) Chronic idiopathic constipation Bustos's esophagus Depression High triglycerides Gastroparesis Carpal tunnel syndrome of right wrist Nausea & vomiting Hernia Acute and chronic respiratory failure, unspecified whether with hypoxia or hypercapnia HTN (hypertension) Obesity (BMI 30-39.9) Knee pain, bilateral Surgical History History of cholecystectomy (~1988) History of carpal tunnel release Hx of tubal ligation History of pubovaginal sling (~2015) History of umbilical hernia repair (~2001) Hx of section History of open reduction and internal fixation (ORIF) procedure History of esophagogastroduodenoscopy (EGD) Family History Father Heart disease HENRY (obstructive sleep apnea) Family history of breast cancer Mother Asthma Emphysema, unspecified Bronchitis Smoker Alcoholism Bone marrow disease Maternal Grandmother Diabetes Social History Household Members: Unknown / Unable to assess Household Members Other:: daughter Housing: House Housing Other:: 3 family house Are you a primary director day care center to a significant other at home: No Do you presently have visiting nurse or other home services: Yes Unable to assess alcohol history related to: Unknown Alcohol intake: never Comment: refusing socks Patient Tobacco Use Status: Tobacco use Unknown Tobacco use type: Cigarette Cigarette Packs Per Day: 0.5 Cigarettes Per Day: 10 Years Smoked: 40 e-Cigarette/Vaping Use: Currently Using Second Hand Smoke Exposure: Yes Substance Use Type: Crack/Cocaine Advance Directives Date on File: 12/19/23 service: No Current occupational status: disabled 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 Review of Systems Const All systems reviewed & are unremarkable except as noted in HPI and below ENT Denies dizziness Card Details: chest tight Denies chest pain, Denies chest pain at rest, Denies chest pain with activity, Denies rapid heart rate, Denies pedal edema, Denies edema, Reports leg edema, Denies lightheadedness, Denies palpitations, Reports dyspnea, Reports dyspnea on exertion and Reports orthopnea Resp Denies cough, Reports dyspnea and Reports dyspnea on exertion GI Denies hematochezia and Denies change in stool character Musc Details: uses walker Reports abnormal gait, Denies limited range of motion, Denies muscle cramps, Denies muscle weakness, Denies numbness, Denies radiating pain into limb, Denies stiffness and Denies tingling Neuro Reports abnormal gait, Denies dizziness, Denies numbness and Denies tingling Endo Denies palpitations Physical Exam Vital Signs: Last Vital Signs Pulse 82 02/19/25 09:26 BP 90/62 02/19/25 09:26 BMI result Body Mass Index 34.6 Const Other: obese, mild respiratory difficulty General: cooperative and no acute distress Orientation/consciousness: patient oriented x3 Neck Neck: Yes normal visual inspection Resp Other: mild increase to work of breathing. No cough. Lung sounds diminished throughout Effort & Inspection: able to speak in complete sentences Auscultation: no crackles, no rhonchi and no wheezes Cardio Other: heart tones distant Rate: regular rate Rhythm: regular rhythm Heart sounds: S1 normal heart sound present, S2 normal heart sound present, no murmurs and no rubs GI Other: shows me presence of umbilical hernia Neuro General: patient oriented x3 Extrem General: Yes normal to inspection and No no pedal edema Psych Appearance: grossly normal Mental Status: mental status grossly normal Speech and movement: Normal speech and movement present Office Procedures EKG Details: Today, read by me, sinus rhythm with PAC, right axis, RVH, cant exclude prior anterior infarct, rate 82, Qtc 436ms [id number], Complete Assessment & Plan Assessment & Plan (1) CHF (congestive heart failure): Code(s): I50.9 - Heart failure, unspecified Category: Medical Qualifiers: Heart failure chronicity: unspecified Heart failure type: unspecified Qualified Code(s): I50.9 - Heart failure, unspecified Plan: [facility] admission in September 2024 with respiratory failure and evidence of fluid overload, Congestive heart failure. Echocardiogram done 10/15/2024 showed EF 40-45%, with regional wall motion abnormality consistent with stress-induced cardiomyopathy. She did have dobutamine stress test 02/15/2025 which showed likely normal myocardial perfusion imaging. She is on Lasix 40 mg daily without signs of acute fluid overload on exam. She has chronic shortness of breath and continues to smoke 1 pack cigarettes per day. Will update echocardiogram to reassess for improvement in EF and wall motion. Continue losartan to help with neurohormonal modulation. Continue Lasix. Signs and symptoms of heart failure reviewed with her. Cardiology office visit 3 months, sooner if needed. (2) Cardiogenic shock: Code(s): R57.0 - Cardiogenic shock Category: Medical Plan: Noted during last hospitalization. Recurrent admissions for respiratory failure, 7 admits in the last 3 months. She was managed in the ICU with impr ovement in her condition. Cardiac testing as above. (3) Chronic lung disease: Code(s): J98.4 - Other disorders of lung Category: Medical Plan: Follows with pulmonology. Admits to not wearing oxygen as she should be due to her frequent smoking. (4) Tobacco abuse: Code(s): Z72.0 - Tobacco use Category: Medical Plan: Smoking 1 pack of cigarettes per day. (5) Hospital discharge follow-up: Code(s): Z09 - Encounter for follow-up examination after completed treatment for conditions other than malignant neoplasm Category: Medical Plan: Discharge summaries reviewed. (6) Stress-induced cardiomyopathy: Code(s): I51.81 - Takotsubo syndrome Category: Medical Plan: noted on September 2024 echocardiogram as above. Will be updating echocardiogram. (7) Preop cardiovascular exam: Code(s): Z01.810 - Encounter for preprocedural cardiovascular examination Category: Medical Plan: Patient hopes to have abdominal surgery in the near future. Echocardiogram is pending. Recent nuclear stress test showed no obvious ischemia. Her primary surgical risk will be respiratory related. Will update this note once echocardiogram results are available. Plan I discussed with the patient the need for an updated echocardiogram to assess her cardiac function, explaining that centralized scheduling will contact her for the appointment. We talked about the importance of using supplemental oxygen as needed and reducing tobacco use to improve her respiratory symptoms. I advised her to elevate her legs and use compression stockings to manage any leg edema. We also discussed her upcoming surgical consultation for her hernias and the need to evaluate her respiratory status for surgery. Orders: Orders CA Echo Limited Today I50.9 - Heart failure, unspecified, J44.1 - Chronic obstructive pulmonary disease with (acute) exacerbation, J96.01 - Acute respiratory failure with hypoxia, R94.31 - Abnormal electrocardiogram [ECG] [EKG] Patient Instructions: - Use supplemental oxygen as needed. - Work on reducing tobacco use. - Elevate legs and use compression stockings to manage swelling. - Await contact from centralized scheduling for echocardiogram appointment. - Attend surgical consultation for hernias. Patient was informed and verbally consented to the use of an ambient scribe for clinic note documentation during this visit. Visit time spent on chart review, interview, assessment, orders, documentation. Coding Level of Care Code Est Pt Level 4 (54742) Complex EM visit Add On G2211 Diagnoses Congestive heart failure, unspecified HF chronicity, unspecified heart failure type I50.9 Heart failure chronicity: unspecified Heart failure type: unspecified Cardiogenic shock R57.0 Chronic lung disease J98.4 Tobacco abuse Z72.0 Hospital discharge follow-up Z09 Stress-induced cardiomyopathy I51.81 Preop cardiovascular exam Z01.810 CPT Codes EKG - CPT: [id number], Complete ([id number])
== END 2025-02-19 10:50 | disposition home or self-care (01) ==
PROVIDERS: PCP Nurse Practitioner Family; Visit Provider Nurse Practitioner Family
DX: I50.9 Heart failure, unspecified (principal); R57.0 Cardiogenic shock; J98.4 Other disorders of lung; Z72.0 Tobacco use; Z09 Encounter for follow-up examination after completed treatment for conditions other than malignant neoplasm; I51.81 Takotsubo syndrome; Z01.810 Encounter for preprocedural cardiovascular examination
CPT/HCPCS: 93010; 99214

== ENCOUNTER → 2025-02-19 09:10 | Outpatient (BNVA) | payer OTHER, SELFPAY | PROVIDERS: Visit Provider Nurse Practitioner Family | DX: Z01.810 Encounter for preprocedural cardiovascular examination (principal); I51.81 Takotsubo syndrome; Z72.0 Tobacco use; J98.4 Other disorders of lung; R57.0 Cardiogenic shock; I50.9 Heart failure, unspecified; R94.31 Abnormal electrocardiogram [ECG] [EKG] | CPT/HCPCS: 93005; 99212 ==

== ENCOUNTER 2025-03-03 10:24 | Outpatient (AMB) | payer OTHER, SELFPAY ==
--- OUTSIDE RECORDS SUMMARY | 2025-02-28 12:48 | XMS_ITS | Continuity of Care Document ---
Author Organization [facility] ter Address [address] [place] [address]- Care Team Providers Care Baler Operator Name Role Phone Geoffrey YATES, Joe Tavarez Primary Care Physician [phone] Encounter [facility] Date(s): 02/25/25 - 02/28/25 [facility] [address] [place] [id number] Encounter Diagnosis COPD exacerbation(Final) - 02/25/25 Discharge Disposition: A-D/C Home Attending Physician: Bereket Alatorre MD Admitting Physician: Miladys LEOS, Rona Diaz Referring Physician: Not on Staff, Referring MD Encounter Type: Disch IP Allergies, Adverse Reactions, Alerts Substance Criticality Severity Reaction Reaction Severity Status doxycycline 1 swelling Doxycycline adverse reaction Active famotidine 2 rash Active cetirizine 3 rash Active Chantix 4 High criticality Severe anaphylaxis A ctive linaclotide 5 rash Active barium sulfate 6 angioedema Ac tive Zithromax 7 rash Active 1Per [facility] 2Per [facility] 3Per [facility] 4Per [facility] 5Per [facility] 6Per [facility] 7Per [facility] Immunizations Given and Recorded Vaccine Date Status Refusal Reason influenza virus vaccine, inactivated 05/10/15 Give n influenza virus vaccine, inactivated 1 04/10/11 Gi ignacio pneumococcal 23-valent vaccine 2 04/10/11 Given tetanus/diphtheria/pertussis, acel(Tdap) 3 04/10/11 Given 1Admin Note: vis 01/23/2011 2Admin Note: VIS 12/27/2006 3Admin Note: VIS 05/18/2008 Given Medications acetaminophen 650 mg oral tablet, extended release 1 tablet = 650 mg, By Mouth, 2 times a day, PRN as needed for pain, 0 Refills, Maintenance, :48:00 PM EDT, Partial fill upon patient request if the prescription is for a schedule II opioid drug. Start Date: 02/26/25 Status: Ordered Medication Dispense Status: Completed Total Allowed Fills: 1 Fills Dispensed: 0 albuterol 0.083% inhalation solution 3 mL = 2.5 mg, Every 4 hours, PRN Wheezing/Shortness of Breath, 0 Refills, Maintenance, 02/26/25 2:50:00 PM EDT, Solution, Partial fill upon patient request if the prescription is for a schedule II opioid drug. Start Date: 02/26/25 Status: Ordered Medication Dispense Status: Completed Total Allowed Fills: 1 Fills Dispensed: 0 albuterol-ipratropium 3 mg-0.5 mg/3 ml inhalation solution 3 mL, Neb, 4 times a day, PRN as needed for shortness of breath or wheezing, # 1,080 mL, 0 Refills,Maintenance, 02/25/25 8:40:00 PM EDT, Solution, Partial fill upon patient request if the prescription is for a schedule II opioid drug. Start Date: 02/25/25 Status: Ordered Medication Dispense Status: Completed Quantity: 1080.0 Unit: mL Total Allowed Fills: 1 Fills Dispensed: 0 Allergy Relief (Fexofenadine HCl) 180 mg oral tablet 1 tablet = 180 mg, By Mouth, Daily, # 30 tablet, 0 Refills, Maintenance, 02/25/25 8:39:00 PM EDT, Tablet, Partial fill upon patient request if the prescription is for a schedule II opioid drug. Start Date: 02/25/25 Status: Ordered Medication Dispense Status: Completed Quantity: 30.0 Unit: tablet Total Allowed Fills: 1 Fills Dispensed: 0 aspirin 81 mg oral delayed release tablet 81 mg, 1, tablet, By Mouth, Daily, # 30 tablet, Refills 0, Maintenance, 02/26/25 3:14:00 PM EDT, Partial fill upon patient request if the prescription is for a schedule II opioid drug. Start Date: 02/26/25 Status: Ordered Medication Dispense Status: Completed Quantity: 30.0 Unit: tablet Total Allowed Fills: 1 Fills Dispensed: 0 atorvastatin 40 mg oral tablet 1 tablet = 40 mg, By Mouth, Daily, # 90 tablet, 0 Refills, Maintenance, 02/26/25 2:51:00 PM EDT, Tablet, Partial fill upon patient request if the prescription is for a schedule II opioid drug. Start Date: 02/26/25 Status: Ordered Medication Dispense Status: Completed Quantity: 90.0 Unit: tablet Total Allowed Fills: 1 Fills Dispensed: 0 Calcet 500 mg-400 intl units oral tablet, chewable 1 tablet, By Mouth, Daily, 0 Refills, Maintenance, 02/26/25 2:54:00 PM EDT, Partial fill upon patient request if the prescription is for a schedule II opioid drug. Start Date: 02/26/25 Status: Ordered Medication Dispense Status: Completed Total Allowed Fills: 1 Fills Dispensed: 0 esomeprazole 40 mg oral enteric coated capsule 1 capsule = 40 mg, By Mouth, Daily, # 30 capsule, 0 Refills, Maintenance, 02/25/25 8:39:00 PM EDT, EC Capsule, Partial fill upon patient request if the prescription is for a schedule II opioid drug. Start Date: 02/25/25 Status: Ordered Medication Dispense Status: Completed Quantity: 30.0 Unit: capsule Total Allowed Fills: 1 Fills Dispensed: 0 ferrous fumarate 324 mg oral tablet 1 tablet = 324 mg, By Mouth, Daily, # 30 tablet, 1 Refills, Maintenance, 02/28/25 11:30:00 AM EDT, Tablet, [facility]/pharmacy #[id number], Partial fill upon patient request if the prescription is for a schedule II opioid drug., 150, cm, 02/28/25 7:47:00 EDT, Height, 78.5, kg, 02/26/25 0:06:00 EDT, Dry Weight Start Date: 02/28/25 Status: Ordered Medication Dispense Status: Completed Quantity: 30.0 Unit: tablet Total Allowed Fills: 2 Fills Dispensed: 0 furosemide 20 mg oral tablet 20 mg, 1, tablet, By Mouth, Daily, # 30 tablet, Refills 0, Maintenance, 02/25/25 8:39:00 PM EDT, Partial fill upon patient request if the prescription is for a schedule II opioid drug. Start Date: 02/25/25 Status: Ordered Medication Dispense Status: Completed Quantity: 30.0 Unit: tablet Total Allowed Fills: 1 Fills Dispensed: 0 gabapentin 100 mg oral capsule 400 mg, Capsule, By Mouth, 02/28/25 9:00:00 AM EDT Start Date: 02/28/25 Stop Date: 02/28/25 Status: Completed Medication Dispense Status: Completed Total Allowed Fills: 1 Fills Dispensed: 0 gabapentin 800 mg oral tablet 1 tablet = 800 mg, By Mouth, 4 times a day, # 270 tablet, 0 Refills, Maintenance, 02/25/25 8:40:00 PM EDT, Tablet, Partial fill upon patient request if the prescription is for a schedule II opioid drug. Start Date: 02/25/25 Status: Ordered Medication Dispense Status: Completed Quantity: 270.0 Unit: tablet Total Allowed Fills: 1 Fills Dispensed: 0 glipiZIDE 5 mg oral tablet 5 mg, 1, tablet, By Mouth, Daily, # 30 tablet, Refills 0, Maintenance, 02/25/25 8:39:00 PM EDT, Partial fill upon patient request if the prescription is for a schedule II opioid drug. Start Date: 02/25/25 Status: Ordered Medication Dispense Status: Completed Quantity: 30.0 Unit: tablet Total Allowed Fills: 1 Fills Dispensed: 0 guaiFENesin 100 mg/5 mL oral liquid 5 mL = 100 mg, By Mouth, Every 4 hours, PRN for cough, # 300 mL, 0 Refills, Maintenance, 02/26/25 3:23:00 PM EDT, Liquid, Partial fill upon patient request if the prescription is for a schedule II opioid drug. Start Date: 02/26/25 Status: Ordered Medication Dispense Status: Completed Quantity: 300.0 Unit: mL Total Allowed Fills: 1 Fills Dispensed: 0 ibuprofen 800 mg oral tablet 1 tablet = 800 mg, By Mouth, 2 times a day, PRN for pain, # 30 tablet, 0 Refills, Maintenance, 05/10/15 11:03:03 AM EST, Tablet Start Date: 05/10/15 Status: Ordered Medication Dispense Status: Completed Quantity: 30.0 Unit: tablet Total Allowed Fills: 1 Fills Dispensed: 0 Lantus Solostar Pen 100 units/mL subcutaneous solution = 16 units, Subcutaneous Injection, Daily at bedtime, # 10 mL, 0 Refills, Maintenance, 02/26/25 3:04:00 PM EDT, Solution, Partial fill upon patient request if the prescription is for a schedule II opioid drug. Start Date: 02/26/25 Status: Ordered Medication Dispense Status: Completed Quantity: 10.0 Unit: mL Total Allowed Fills: 1 Fills Dispensed: 0 levoFLOXacin 750 mg oral tablet = 750 mg, By Mouth, Every 24 hours, for 5 days, # 5 tablet, 0 Refills, Acute 03/05/25 11:27:00 AM EDT, 02/28/25 11:27:00 AM EDT, Tablet, [facility] #[id number], Partial fill upon patient request if the prescription is for a schedule II opioid drug., 150, cm, 02/28/25 7:47:00 EDT, Height, 78.5, kg, 02/26/25 0:06:00 EDT, Dry Weight Start Date: 02/28/25 Stop Date: 03/05/25 Status: Ordered Medication Dispense Status: Completed Quantity: 5.0 Unit: tablet Total Allowed Fills: 1 Fills Dispensed: 0 losartan 50 mg oral tablet 1 tablet = 50 mg, By Mouth, Daily, # 30 tablet, 0 Refills, Maintenance, 02/25/25 8:39:00 PM EDT, Tablet, Partial fill upon patient request if the prescription is for a schedule II opioid drug. Start Date: 02/25/25 Status: Ordered Medication Dispense Status: Completed Quantity: 30.0 Unit: tablet Total Allowed Fills: 1 Fills Dispensed: 0 predniSONE 20 mg oral tablet = 40 mg, By Mouth, Daily, for 5 days, # 10 tablet, 0 Refills, Acute 03/05/25 11:28:00 AM EDT, 02/28/2511:28:00 AM EDT, Tablet, [id number], Partial fill upon patient request if the prescription is for a schedule II opioid drug., 150, cm, 02/28/25 7:47:00 EDT, Height, 78.5, kg, 02/26/25 0:06:00EDT, Dry Weight Start Date: 02/28/25 Stop Date: 03/05/25 Status: Ordered Medication Dispense Status: Completed Quantity: 10.0 Unit: tablet Total Allowed Fills: 1 Fills Dispensed: 0 QUEtiapine 100 mg oral tablet 100 mg, 1, tablet, By Mouth, 3 times a day, # 270 tablet, Refills 0, Maintenance, 02/25/25 8:40:00 PM EDT, Partial fill upon patient request if the prescription is for a schedule II opioid drug. Start Date: 02/25/25 Status: Ordered Medication Dispense Status: Completed Quantity: 270.0 Unit: tablet Total Allowed Fills: 1 Fills Dispensed: 0 sertraline 100 mg oral tablet 1 tablet = 100 mg, By Mouth, Daily, # 30 tablet, 0 Refills, Maintenance, 02/25/25 8:39:00 PM EDT, Tablet, Partial fill upon patient request if the prescription is for a schedule II opioid drug. Start Date: 02/25/25 Status: Ordered Medication Dispense Status: Completed Quantity: 30.0 Unit: tablet Total Allowed Fills: 1 Fills Dispensed: 0 sertraline 25 mg oral tablet 1 tablet = 25 mg, By Mouth, Daily, # 30 tablet, 0 Refills, Maintenance, 02/26/25 2:55:00 PM EDT, Tablet, Partial fill upon patient request if the prescription is for a schedule II opioid drug. Start Date: 02/26/25 Status: Ordered Medication Dispense Status: Completed Quantity: 30.0 Unit: tablet Total Allowed Fills: 1 Fills Dispensed: 0 Spacer to be used with inahlers Spacer to be used with inahlers, See Instructions, # 1 each, Refills 0, Tot. Refills 0, Maintenance, use spacer with inhalers, 06/14/14 5:17:00 PM EST, Compound Start Date: 06/14/14 Status: Ordered Medication Dispense Status: Completed Quantity: 1.0 Unit: each Total Allowed Fills: 1 Fills Dispensed: 0 Stiolto Respimat 60 ACT 2.5 mcg-2.5 mcg/inh inhalation aerosol 2 inhalation, Inhalation, Daily, at the same time every day, # 4 Gm, 0 Refills, Maintenance, 02/25/25 8:40:00 PM EDT, Aerosol, Partial fill upon patient request if the prescription is for a schedule II opioid drug. Start Date: 02/25/25 Status: Ordered Medication Dispense Status: Completed Quantity: 4.0 Unit: g Total Allowed Fills: 1 Fills Dispensed: 0 tiZANidine 4 mg oral tablet 4 mg, 1, tablet, By Mouth, 2 times a day, # 90 tablet, Refills 0, Maintenance, 02/25/25 8:40:00 PM EDT, Partial fill upon patient request if the prescription is for a schedule II opioid drug. Start Date: 02/25/25 Status: Ordered Medication Dispense Status: Completed Quantity: 90.0 Unit: tablet Total Allowed Fills: 1 Fills Dispensed: 0 topiramate 50 mg oral tablet TAKE 1 TABLET BY MOUTH TWICE A DAY Start Date: 02/25/25 Status: Ordered Medication Dispense Status: Completed Total Allowed Fills: 1 Fills Dispensed: 0 Ventolin HFA 108 mcg/inh inhalation aerosol with adapter 2 inhalation = 180 mcg, Inhalation, Every 6 hours, PRN as needed for shortness of breath or wheezing, # 18 Gm, 0 Refills, Maintenance, 02/25/25 8:39:00 PM EDT, Aerosol, Partial fill upon patient request if the prescription is for a schedule II opioid drug. Start Date: 02/25/25 Status: Ordered Medication Dispense Status: Completed Quantity: 18.0 Unit: g Total Allowed Fills: 1 Fills Dispensed: 0 Problem List Condition Confirmation Course Effective Dates Status H ealth Status Informant Alcoholism Confirmed Active Asthma Confirmed Active Central obesity Confirmed Active Cholecystectomy Confirmed Active Cocaine dependence in recovery Confirmed Active COPD Confirmed Active Depression Confirmed Active Headache Confirmed 02/25/09 Active Obese class I Confirmed Active HENRY on CPAP Confirmed Active Smoker Confirmed Active Results Radiology Reports * Exam Date Time Procedure Performing Provider Status 02/25/25 10:01 PM Chest Portable Auth (Shruti ified) Notes: (Chest Portable) Reason For Exam: Tube Placement RESULT: Chest Portable Chest Portable Reason: Tube Placement; Clinical Question(s): Tube Placement / Tube Placement COMPARISON: 02/25/2025 FINDINGS: LINES AND TUBES: Enteric tube tip and side-port project in the stomach. LUNGS AND PLEURA: No significant change in patchy opacity at the lung bases. No pleural effusion. No pneumothorax. HEART, MEDIASTINUM AND ALEX: Unchanged. BONES AND SOFT TISSUES: No acute abnormality. IMPRESSION: 1. Enteric tube tip and side-port projecting stomach. 2. Unchanged airspace opacity at the lung bases. WSN: [id number] Ordering Physician: Jitendra Christiansen Dictated By: Aleksandr Charles MD Dictated Date/Time: 02/26/25 9:06 am Reviewed By: Aleksandr Charles MD Signed By: Aleksandr Charles MD Signed Date/Time: 02/26/25 9:06 am Transcribed By: BEHZAD Transcribed Date/Time: 02/26/25 9:06 am * Exam Date Time Procedure Performing Provider Status 02/25/25 6:57 PM Chest Portable Auth (Veri fied) Notes: (Chest Portable) Reason For Exam: Shortness of Breath RESULT: Chest Portable Chest Portable Hx of Present Illness: Patient GUY, coming from home with complaints of sob; Reason: Shortness of Breath; Clinical Question(s): Pneumonia COMPARISON: 04/03/2011 FINDINGS: LINES AND TUBES: None. LUNGS AND PLEURA: Patchy density in the lower lobes. Possible findings of pneumonia or aspiration. No evidence of pleural effusion. No pneumothorax. HEART, MEDIASTINUM AND ALEX: Heart is normal in size. Normal mediastinal and hilar contour. BONES AND SOFT TISSUES: No acute abnormality. IMPRESSION: Possible bilateral lower lobe pneumonia or aspiration WSN: [id number] Ordering Physician: Dalton Quijano Dictated By: Armando Young MD Dictated Date/Time: 02/25/25 7:14 pm Reviewed By: Armando Young MD Signed By: Armando Young MD Signed Date/Time: 02/25/25 7:14 pm Transcribed By: BEHZAD Transcribed Date/Time: 02/25/25 7:11 pm Social History Social History Type Response Smoking Status Current every day toya entered on: 05/10/15 Sex Sex Representation Female (finding) Admission evaluation note * Fletcher Gonzalez MD: MODIFY Fletcher Gonzalez MD: MODIFY, PERFORM, MODIFY, MODIFY, MODIFY, MODIFY Event Display: Admission Note Authored Date: [id number] Patient: ??CYNTHIA SAWYER ? Age:??54 Years?Sex:??Female?:??1970?? Chief Complaint/Reason for Consultation see CHEPE level 1 sheet History of Present Illness 54-year-old female past medical history of COPD/asthma, severe HENRY and central apnea, diabetes mellitus, depression, history of crack cocaine use who is presenting to the emergency department with primary complaint of fevers and shortness of breath.?? Per chart search, she has been experiencing fevers over the past few days that she was managing with intermittent Tylenol use.?? She is an active smoker and uses supplemental oxygen up to 3 L/min.?? Due to hypoxia EMS was alerted and she was started on BiPAP due to desaturations into the 70s.?? Upon arrival to the emergency department she presented with significant respiratory distress and although initially improved on BiPAP she later became m ore somnolent and agitated requiring intubation.?? She was transferred to MICU for further management. ?? Objective data: ??? Chest x-ray shows bilateral lower lobe pneumonia/aspiration ??? Initial laboratory evaluation shows ABG of 7.25/83/46/35 on 40% FiO2 ??? She has leukocytosis at 20.1 with neutrophilic predominance and elevated bicarb at 34.?? NT proBNP of roughly 2000 and high-sensitivity troponin of 32 ??? She has tachycardia into the 100s and Tmax of 101.8 ??? She is on Levophed 0.1 mcg/kg/min Review of Systems Unable to obtain Objective Vital Signs?? Temperature: 98.6 DegF (02/26/25 00:06:00) Temperature Route: Core Bladder (02/26/25 00:06:00) Pulse Rate: 87 bpm (02/26/25 00:06:00) Heart Rate Monitored: 86 bpm (02/26/25 00:08:00) Respiratory Rate: 22 br/min (02/26/25 00:06:00) Systolic Blood Pressure:??87 mm Hg??Low (02/26/25 00:08:00) Diastolic Blood Pressure:??46 mm Hg??Low (02/26/25 00:08:00) Blood pressure sites: Arm, right (02/26/25 00:06:00) Mean Arterial Pressure: 109 mm Hg (02/26/25 00:06:00) Pulse Pressure: 69 mm Hg (02/26/25 00:06:00) Oxygen Saturation:??92 %??Low (02/26/25 00:08:00) Mode of Delivery (Oxygen): Ventilator (02/26/25 00:00:00) FiO2: 60 % (02/26/25 00:08:00) End Tidal CO2: 40 mm Hg (02/26/25 00:08:00) Early Warning Score: 3 (02/25/25 23:03:53) ? Physical Exam Constitutional: Intubated and sedated Respiratory: Clear to auscultation. No wheezing, rales or rhonchi. Cardiovascular: S1 S2 regular. No murmurs, rubs or gallops. Gastrointestinal: Abdomen soft, non-tender, non-distended.?? Neurologic: No focal neurological deficits. Flexor plantar response. Moves all extremities spontaneously. Sensation intact bilaterally. Skin: No rashes or lesions. No petechiae or purpura.?? Musculoskeletal: No cyanosis or clubbing. No gross deformities.?? Assessment/Plan 54-year-old female past medical history of COPD/asthma, severe HENRY and central apnea, diabetes mellitus, depression, history of crack cocaine use who is presenting to the emergency department with primary complaint of fevers and shortness of breath.?? Per chart search, she has been experiencing fever over the past few days that she was managing with intermittent Tylenol use.?? She is an active smoker and uses supplemental oxygen up to 3 L/min.?? Due to hypoxia EMS was alerted and she was started on BiPAP due to desaturations into the 70s.?? Upon arrival to the emergency department she presented with significant respiratory distress and although initially improved on BiPAP she later became more somnolent and agitated requiring intubation.?? She was transferred to MICU for further management. ?? Neurology Depression Alert and oriented at baseline although became somnolent while on BiPAP in the emergency department.?? Likely in setting of CO2 narcosis. ?? Plan: ?Propofol for goal RASS of 0 ??? Fentanyl for CPOT greater than 2 ??? Continue sertraline 150 mg daily ??? Decrease home quetiapine to 25 mg twice daily??to??minimize sedation??(50 mg twice daily at home) ?Decrease gabapentin to 200 mg 4 times??a day??to minimize sedation (800 mg 4 times a day at home) ??? Continue topiramate 50 mg twice daily ?? Cardiovascular Septic shock History of hypertension, hyperlipidemia Unclear cardiac history.?? Home medication regimen of furosemide 20 mg daily, losartan 50 mg daily,atorvastatin 40 and aspirin 81 mg Low concern for ACS although will trend troponin??and obtain serial EKG. ?? Plan: ??? Levophed with MAP goal greater than 65 ??? Hold home antihypertensives and diuretics ??? Continue aspirin 81 mg and atorvastatin 40 mg ??? Complete echocardiogram ?Trend troponins until peak ?? Pulmonology Acute on chronic hypercapnic and hypoxic respiratory failure COPD exacerbation PFTs from 2018 show obstruction, low DLCO with an elevated RV/TLC is consistent with diagnosis emphysema. Most recent blood gas: 7.38/51/80/29 and 50% FiO2 Ventilator settings AC/VC 8/60%/350/22 ?? Plan: ??? Continue IV methylprednisone 60 mg daily ??? Continue DuoNebs every 6 hours scheduled and as needed ??? Continue levaquin for community acquired pneumonia ??? Sputum culture ??? Extended viral panel ?Wean ventilator as tolerated ??? Goal oxygen saturation 88-92% ??? Daily SAT/SBT ?? Gastroenterology GERD No active issues. Plan: ??? Substitute omeprazole for pantoprazole 40mg daily ??? ICU bowel regimen ?? Nephrology No active issues Plan: ??? Monitor ?? Infectious disease Community-acquired pneumonia Leukocytosis Fevers Chest x-ray with evidence of bibasilar opacities.?? Patient is febrile and with significant leukocytosis Given allergies to macrolides will continue Levaquin. ??Urinalysis negative for UTI ?? Plan: ?Follow-up blood cultures ??? Follow-up sputum cultures ?Continue Levaquin 750 mg every 24 hours ?Extended viral panel ??? Tylenol 975 every 8 hours for temperature ?? Endocrine Type 2 diabetes mellitus Home regimen: Glipizide 5 mg daily, Lantus (unclear amt) ?? Plan: ???ICU insulin drip protocol ?? CODE STATUS: Presumed full DVT prophylaxis: Heparin Diet: N.p.o. ?? Patient seen and discussed with attending physician Dr. Leblanc. ?? Robina Hughes, DO Internal Medicine PGY3 ? Attending Attestation ?? Date of Service:??02/25/25 ?? Patient seen and examined, data reviewed, case and management discussed with house staff on rounds on the date of service. I confirmed the findings and agree with the documentation of the assessment and plan of care we developed together as detailed below with the following highlights/additions/modifications. ?? Assessment:?? #Acute on chronic hypoxic/hypercapnic respiratory failure secondary to COPD exacerbation #COPD exacerbation secondary to rhinovirus with likely superimposed bacterial pneumonia #Septic shock secondary to pneumonia #Cocaine abuse #Hx of??COPD, severe obstructive sleep apnea and central apnea, type 2 diabetes, depression ?? Plan: - Propofol and Fentanyl. - Daily sedation vacation and SBT as tolerated. - Solumedrol 60mg daily. - DuoNebs q6hrs and as needed. - Levofloxacin. - Lovenox for DVT prophylaxis - Rest per note above. ? Critical care management and additional activities included:? - Active management of invasive mechanical ventilation. - Assessment and interpretation of invasive hemodynamic monitoring. - Management of Unstable hemodynamics with vasopressors and/or inotrope. - Management of Unstable hemodynamics with IV fluids infusions or boluses. - Management of sedative infusions - Review of overnight and recent events - Review of medications, allergies, and vital signs - Serial data review - Ordering, interpreting, and reviewing diagnostic studies/lab tests - Clinical examination - High complexity medical decision-making ? Critical Care Time = 80m (This time also includes time spent for documentation, but does not include time spent in performing any separately billed procedures) ?? The threat to imminent deterioration of these conditions mandated critical care monitoring, observation and management. This critical care service was provided in supervision of house staff (residents and/or fellows taking care of the patient), and/or [id number] with an advanced practice provider yet independently provided critical care services with additional critical care time as documented above. ?? Please call or [employer] with any questions or concerns. Fletcher Leblanc MD, FCCP, MBAc [employer] Cl[employer] Reclaimerstave block roller, [facility]?? Director, Interstitial Lung Disease Cartography Teacher, Critical Care Fellowship Program.?? Division of Pulmonary, Critical Care and Sleep Medicine [facility] ?? Histories Allergies Allergies ?(Active and Proposed Allergies Only) NKA? (Severity: Unknown severity, Onset: Unknown) ? Past Medical History/Problem List Active Problems(11) Alcoholism Asthma Central obesity Cholecystectomy Cocaine dependence in recovery COPD Depression Headache Obese class I HENRY on CPAP Smoker ? Past Surgical History Cholecystectomy Hernia repair section ? Social History Tobacco Details:??Current every day smoker Details:??Current every day smoker, Tobacco user in household: No. ??Other: Patient states that shesmokes 1ppd. KB. ? Family History No Family History documented. ? Medications Home Medications Albuterol (Ventolin HFA 108 mcg/inh inhalation aerosol with adapter)??1 inhalation 90 Microgram Inhalation Every 4 hours as needed as needed for shortness of breath or wheezing Albuterol/Ipratropium (albuterol-ipratropium 3 mg-0.5 mg/3 ml inhalation solution)??3 Milliliter Neb 4 times a day as needed as needed for shortness of breath or wheezing Atorvastatin (atorvastatin 10 mg oral tablet)??1 tab(s) 10 Milligram By Mouth Daily Carisoprodol (carisoprodol 350 mg oral tablet)??350 Milligram 1 tablet By Mouth Daily Cetirizine (cetirizine 10 mg oral tablet)??1 tab(s) 10 Milligram By Mouth Daily as needed for allergy symptoms dulaglutide (Trulicity Pen 0.75 mg/0.5 mL subcutaneous solution)??once a week Durable Medical Equipment (Nebulizer/Compressor)??See Instructions dx: asthmause w/ albuterol frances Durable Medical Equipment (Spacer to be used with inahlers)??See Instructions use spacer with inhalers Esomeprazole (esomeprazole 40 mg oral enteric coated capsule)??1 capsule 40 Milligram By Mouth Daily Fexofenadine (Allergy Relief (Fexofenadine HCl) 180 mg oral tablet)??1 tab(s) 180 Milligram By Mouth Daily fluticasone-vilanterol (Breo Ellipta 100 mcg-25 mcg/inh inhalation powder)??See Instructions INHALE1 PUFF BY MOUTH ONCE A DAY *RINSE MOUTH AFTER EACH USE* Furosemide (furosemide 20 mg oral tablet)??20 Milligram 1 tablet By Mouth Daily Gabapentin (gabapentin 800 mg oral tablet)??1 tab(s) 800 Milligram By Mouth 3 times a day GlipiZIDE (glipiZIDE 5 mg oral tablet)??5 Milligram 1 tablet By Mouth Daily Ibuprofen (ibuprofen 800 mg oral tablet)??1 tab(s) 800 Milligram By Mouth 3 times a day as needed for pain Losartan (losartan 50 mg oral tablet)??1 tab(s) 50 Milligram By Mouth Daily Meloxicam (meloxicam 15 mg oral tablet)??1 tab(s) 15 Milligram By Mouth Daily Metformin??1,000 Milligram By Mouth 2 times a day olodaterol-tiotropium (Stiolto Respimat 60 ACT 2.5 mcg-2.5 mcg/inh inhalation aerosol)??2 inhalation Inhalation Daily at the same time every day Omeprazole (omeprazole 20 mg oral delayed release tablet)??1 tab(s) 20 Milligram By Mouth 2 times aday Oxybutynin (oxybutynin 15 mg/24 hr oral tablet, extended release)??1 tab(s) 15 Milligram By Mouth Daily PredniSONE (predniSONE 20 mg oral tablet)??1 tab(s) 20 Milligram By Mouth Daily Quetiapine (QUEtiapine 100 mg oral tablet)??100 Milligram 1 tablet By Mouth 3 times a day Sertraline (sertraline 100 mg oral tablet)??1 tab(s) 100 Milligram By Mouth Daily Tizanidine (tiZANidine 4 mg oral tablet)??4 Milligram 1 tablet By Mouth Every 8 hours Topiramate (topiramate 50 mg oral tablet)??TAKE 1 TABLET BY MOUTH TWICE A DAY umeclidinium (Incruse Ellipta 62.5 mcg/inh inhalation powder)??See Instructions INHALE 1 PUFF BY MOUTH ONCE A DAY *DOSES SHOULD BE 24 HOURS APART* ? Results Recent Labs BLOOD COUNT & DIFF WBC 20.1 k/mm3 (High)?? 02/25/2025 17:33 RBC 5.43 m/mm3 (High)?? 02/25/2025 17:33 Hgb 10.9 Gm/dL (Low)?? 02/25/2025 17:33 Hct 41.9 % ()?? 02/25/2025 17:33 MCV 77.2 femtoliters (Low)?? 02/25/2025 17:33 MCH 20.1 pg (Low)?? 02/25/2025 17:33 MCHC 26.0 Gm/dL (Low)?? 02/25/2025 17:33 Platelet Count 263 k/mm3 ()?? 02/25/2025 17:33 RDW-SD 57.4 femtoliters (High)?? 02/25/2025 17:33 MPV 9.4 femtoliters ()?? 02/25/2025 17:33 Nucleated RBC (Automated) 0.1 #/100 WBC'S ()?? 02/25/2025 17:33 Abs. NRBC 0.0 k/mm3 ()?? 02/25/2025 17:33 Abs. Neut 16.1 k/mm3 (High)?? 02/25/2025 17:33 Abs. Lymph 2.9 k/mm3 ()?? 02/25/2025 17:33 Abs. [place] 1.0 k/mm3 (High)?? 02/25/2025 17:33 Abs. Eo 0.1 k/mm3 ()?? 02/25/2025 17:33 Abs. Baso 0.0 k/mm3 ()?? 02/25/2025 17:33 Neut % 79.8 % (High)?? 02/25/2025 17:33 Lymph % 14.3 % (Low)?? 02/25/2025 17:33 [place] % 5.0 % ()?? 02/25/2025 17:33 Eos % 0.3 % ()?? 02/25/2025 17:33 Baso % 0.2 % ()?? 02/25/2025 17:33 Imm Gran 0.4 % ()?? 02/25/2025 17:33 Abs. Imm Gran 0.1 k/mm3 ()?? 02/25/2025 17:33 ?? BLOOD GAS pH 7.38 ()?? 02/25/2025 22:57 pCO2 51 mm Hg (High)?? 02/25/2025 22:57 pO2 80 mm Hg ()?? 02/25/2025 22:57 Bicarbonate, Estimated 29 mmol/L ()?? 02/25/2025 22:57 Specimen Type - Blood Gas ARTERIAL ()?? 02/25/2025 22:57 Percent O2 (FIO2) 50% ()?? 02/25/2025 22:57 ?? CARDIAC Nt-Probnp 1956 pg/mL (High)?? 02/25/2025 17:31 High Sensitivity Troponin (HSTnT) 32 ng/L (High)?? 02/25/2025 17:31 ?? CHEM GENERAL Sodium 143 mmol/L ()?? 02/25/2025 17:31 Potassium 3.7 mmol/L ()?? 02/25/2025 17:31 Chloride 97 mmol/L (Low)?? 02/25/2025 17:31 Bicarbonate Level 34 mmol/L (High)?? 02/25/2025 17:31 Anion Gap 12 mmol/L ()?? 02/25/2025 17:31 Glucose Level 68 mg/dL (Low)?? 02/25/2025 17:31 BUN 20 mg/dL ()?? 02/25/2025 17:31 Creatinine-Blood 0.81 mg/dL ()?? 02/25/2025 17:31 Estimated GFR Creatinine 85 ML/MIN/1.73 M2 ()?? 02/25/2025 17:31 Calcium 9.0 mg/dL ()?? 02/25/2025 17:31 Lactate 1.2 mmol/L ()?? 02/25/2025 17:31 ?? UA/URINALYSIS Appear/Color, Urine LIGHT YELLOW ()?? 02/25/2025 22:24 Specific [place], Urine 1.019 ()?? 02/25/2025 22:24 pH, Urine 7.0 ()?? 02/25/2025 22:24 Albumin, Urine NEGATIVE ()?? 02/25/2025 22:24 Glucose, Urine NEGATIVE ()?? 02/25/2025 22:24 Ketones, Urine NEGATIVE ()?? 02/25/2025 22:24 Bilirubin, Urine NEGATIVE ()?? 02/25/2025 22:24 Hemoglobin, Urine NEGATIVE ()?? 02/25/2025 22:24 Nitrite, Urine NEGATIVE ()?? 02/25/2025 22:24 Leukocyte, Urine NEGATIVE ()?? 02/25/2025 22:24 Urobilinogen NORMAL mg/dL ()?? 02/25/2025 22:24 WBC's, Urine NONE SEEN /HPF ()?? 02/25/2025 22:24 RBC's, Urine NONE SEEN /HPF ()?? 02/25/2025 22:24 Bacteria SLIGHT HPF (Abnormal)?? 02/25/2025 22:24 Amorphous Crystals SLIGHT /HPF ()?? 02/25/2025 22:24 ?? URINE OTHER Est Creatinine Clearance 53.04 mL/min ()?? 02/26/2025 00:08 ?? VIROLOGY COVID-19 by RT-PCR NEGATIVE ()?? 02/25/2025 20:27 ? EKG study * Event Display: ECG 12-Lead Authored Date: Please click on pdf link to open report * Event Display: ECG 12-Lead Authored Date: Ventricular Rate: 102 BPM Atrial Rate: 102 BPM P-R Interval: 120 ms QRS Duration: 92 ms Q-T Interval: 356 ms QTC Calculation(Bazett): 463 ms P Colden: 54 degrees R Colden: 123 degrees T Colden: 53 degrees Sinus tachycardia with frequent Premature ventricular complexes Right axis deviation Possible Right ventricular hypertrophy Abnormal ECG When compared with ECG of 25-Feb-2025 17:16, Premature ventricular complexes are now Present Aberrant conduction is no longer Present Confirmed by Justin Albert ([id number]) on 02/28/2025 7:57:12 AM [place]: Justin Albert * Event Display: ECG 12-Lead Authored Date: Please click on pdf link to open report * Event Display: ECG 12-Lead Authored Date: Ventricular Rate: 112 BPM Atrial Rate: 112 BPM P-R Interval: 116 ms QRS Duration: 94 ms Q-T Interval: 312 ms QTC Calculation(Bazett): 425 ms P Colden: 71 degrees R Colden: 151 degrees T Colden: 45 degrees Poor data quality, interpretation may be adversely affected Sinus tachycardia with Premature atrial complexes Possible Anterolateral infarct , age undetermined Abnormal ECG When compared with ECG of 10-Apr-2011 09:32, QRS axis Shifted right Borderline criteria for Anterolateral infarct are now Present Confirmed by IVÁN ZACARIAS MD ([id number]) on 02/26/2025 8:09:36 AM [place]: IVÁN ZACARIAS MD Heart * Event Display: Echocardiogram - Complete Authored Date: [id number] Transthoracic Echocardiography Report (TTE) Patient Demographics Patient Name CYNTHIA SAWYER Date of Study 02/26/2025 Corporate Gender Female Facility Race .[id number] Ethnicity or Date of 1970 Height: 59.06 inches Age 54 year(s) Weight: 171.96 pounds Accession Number [id number] BSA: 1.73 m2 Room Number [id number] BMI: 34.67 kg/m2 Referring Ellen Quarles DO Interpreting Sandeep Waldron MD 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 Clinical History COPD. Hypertension. Diabetes Mellitus. Hyperlipidemia. Alcohol abuse. Drug abuse. Tobacco use. Obesity. crack/cocaine Study Data Type of Study TTE procedure:Echo Complete-(Doppler, Colorflow) with Contrast. Procedure Information:Definity was administered by Wedding Coordinator . Study Date02/26/2025 Start Time: 08:01 AM Study Location: [facility] [place] Adult Echo Study Status: Bedside Patient Status: Routine Technical Quality: Technically difficult due to patient on ventilator. Blood Pressure:94/64 mmHg EKG: Sinus arrhythmia Contrast Medium: Definity. Amount - 2 ml 2D Measurements LV Diastolic Dimension: 4.7 cm LV Systolic Dimension: 3.3 cm LV Septum Diastolic: 0.8 cm LV PW Diastolic: 0.8 cm AO Root Dimension: 3.8 cm LA Dimension: 3.1 cm LA ESV (BP):30.4 ml LVOT Stroke Volume: 40.19 ml LA ESV Index: 18 ml/m2 Stroke Volume Index23.23 ml/m2 LVOT: 2 cm Ascending Aorta:3.1 cm Doppler Measurements AV Peak Velocity: 125 cm/s MV Peak E-Wave: 82.3 cm/s AV Peak Gradient: 6.25 mmHg MV Peak A-Wave: 94.3 cm/s AV Mean Gradient: 3 mmHg MV E/A Ratio: 0.87 AV VTI:19.3 cm MV P1/2t: 76 msec LVOT Peak Velocity: 84.2 cm/s MV Mean Gradient: 3 mmHg LVOT VTI12.8 cm MV Area (continuity): 1.65 cm2 AV Area (Continuity):2.08 cm2 MV Deceleration Time: 259 msec MV Area (PHT): 2.89 cm2 PV Peak Velocity: 71.5 cm/s E' Septal Velocity: 5.66 cm/s PV Peak Gradient: 2.04 mmHg E' Lateral Velocity: 8.49 cm/s E/Med E':14.25889 E/Lat E':9.467903 Cardiac Anatomy Left Ventricle/Interventricular Septum The left ventricular size is normal. Left ventricular wall thickness is normal. The LV systolic function is mildly reduced. The left ventricular ejection fraction is 40-50% by visual assessment. The inferolateral wall appears hypokinetic. Grade I, mild diastolic dysfunction with impaired LV relaxation. Left Atrium/Interatrial Septum The left atrium is normal in size. Aortic Valve The aortic valve is poorly visualized. There is no aortic stenosis. There is trace aortic regurgitation. Mitral Valve The mitral valve is grossly normal. There is mild mitral regurgitation. Aorta The ascending aorta and aortic root are normal in size. Right Ventricle The right ventricle is moderately dilated. Right ventricular systolic function is severely reduced. Right Atrium The right atrium is dilated. Pulmonic Valve The pulmonic valve is poorly visualized. Tricuspid Valve The tricuspid valve appears normal . There is mild tricuspid valve regurgitation. Pumonary Artery An accurate pulmonary artery pressure could not be obtained. Venous Structures The inferior vena cava is mildly dilated with poor inspiratory collapse Pericardium/Extracardiac There is no significant pericardial effusion. Summary 1) The LV systolic function is mildly reduced. The left ventricular ejection fraction is 40-50% by visual assessment. The inferolateral wall appears hypokinetic. 2) The right ventricle is moderately dilated. Right ventricular systolic function is severely reduced. 3) There is mild mitral regurgitation. Comparison No prior study available for comparison. Signature * Event Display: Echocardiogram - Complete Authored Date: Hospital Progress note * Vy FLORES, Leanne: PERFORM, SIGN, VERIFY Event Display: Progress Note Hospital Authored Date: Patient: CYNTHIA SAWYER Age: 54 years Sex: Female : 1970 Associated Diagnoses: None Author: Leanne Mcclellan RN Findings Problem Related to Alteration in Respiratory Function (new) : Alteration in Respiratory Function/new 02/28/2025 11:00 EDT Alteration in Resp Status Related to Asthma, COPD, Pneumonia Goals & Outcomes, Respiratory Pt will maintain/resume baseline physical assessment, Pt will notdevelop complications r/t mechanical ventilation, Pt will maintain adequate nutritional intake, Pt will maintain/resume normal fluid/electrolyte balance, Pt will not develop complications r/t immobility Interventions, Respiratory Assess/monitor tolerance to IV infusions; verify rate/dose, Assess for and report S&S of respiratory distress, Initiate VAP prevention strategies, Position for comfort & optimal oxygenation, Chest tube drainage, maintain drainage/suction as ordered, Initiate pulmonary rehab nurse consult, Monitor sputum color & consistency. Report changes to MD, Teach/encourage use of incentive spirometer, Teach the proper use of inhalers, Teach Pt/caregiver Smoking cessation education, Teach purse lip breathing as needed for breathing retraining, Teach tripod positioning to promote air exchange BH Goals/Interventions, Respiratory Yes Respiratory, Problem Start 02/26/2025 4:26 Reviewed Plan with, Respiratory Patient Patient Progression, Respiratory Resolved problem Respiratory, Problem Resolved 02/28/2025 11:25 . Evaluation pt discharging this afternoon. daughter coming with home o2 tank. Pt back to baseline 3L/min nc. declines further interventions a tthis time. Call ott in hand, bed lowest position. . Discharge Information Pulmonary Rehab Discharge : Pulmonary Rehab Discharge Status 02/28/2025 3:00 EDT CPAP/BiPAP Mask Type Full CPAP/BiPAP Mask Size Small 02/27/2025 23:25 EDT CPAP/BiPAP Mask Type Full CPAP/BiPAP Mask Size Small 02/26/2025 16:04 EDT CPAP/BiPAP Mask Type Full CPAP/BiPAP Mask Size Small 02/26/2025 15:00 EDT PEEP 5 02/26/2025 14:44 EDT PEEP 5 02/26/2025 14:00 EDT PEEP 5 02/26/2025 13:00 EDT PEEP 5 02/26/2025 12:00 EDT PEEP 5 02/26/2025 11:56 EDT PEEP 5 02/26/2025 10:00 EDT PEEP 8 02/26/2025 9:01 EDT PEEP 8 02/26/2025 8:00 EDT PEEP 8 02/26/2025 7:00 EDT PEEP 8 02/26/2025 6:00 EDT PEEP 8 02/26/2025 5:00 EDT PEEP 8 02/26/2025 4:00 EDT PEEP 8 02/26/2025 3:00 EDT PEEP 8 02/26/2025 2:00 EDT PEEP 8 02/26/2025 1:00 EDT PEEP 8 02/26/2025 0:08 EDT PEEP 8 (Modified) 02/25/2025 21:50 EDT PEEP 6 02/25/2025 17:18 EDT CPAP/BiPAP Mask Type Full CPAP/BiPAP Mask Size Small * Meet Coates RN: PERFORM, SIGN, VERIFY Event Display: Progress Note Hospital Authored Date: [id number] Patient: CYNTHIA SAWYER Age: 54 years Sex: Female : 1970 Associated Diagnoses: None Author: Meet Coates RN Findings Evaluation Alert, oriented x4. VSS. No n/v. No c/o pain. LS with wheezes, prn updraft given with some effect. Pt gets short of breath with exertion, O2 sat- 96% on 3L oxygen, CPAP on at HS. aware of POC results. No s/s hypo/hyperglycemia. Voiding without problem. No respiratory distress. Will continue to monitor. . * Iván Cerda MD: PERFORM Event Display: Progress Note Hospital Authored Date: [id number] Patient: ??CYNTHIA SAWYER ? Age:??54 Years?Sex:??Female?:??1970?? Subjective Medical accept note. Patient transferred out of MICU overnight. Briefly,??54-year-old female??with a history of COPD, HENRY,??chronic respiratory failure on oxygen,??nicotine dependence,??diabetes, depression, cocaine use disorder??presented to the ER on 02/25??with??dyspnea??and fever.?? She reportedly was experiencing increased respiratory distress and somnolence ??necessitating intubation.?? She was started on??antibiotics for possible community-acquired pneumonia and subsequently was found to be RSV positive.?? She was extubated on 02/26.?? She tells me her shortness of breath??has improved. ?? Review of Systems Constitutional:??Fevers Eyes:??No visual loss, blurred vision, double vision or yellow sclera ENT:??No hearing loss, sneezing, congestion, runny nose or sore throat. Respiratory:??Shortness of breath wheezing Cardiovascular:??No chest pain, chest pressure or chest discomfort.?? Gastrointestinal:??No anorexia, nausea, vomiting or diarrhea. Genitourinary:??No burning micturition. No urinary frequency or incontinence. Neurologic:??No headache, dizziness, syncope, unilateral weakness, ataxia, numbness or tingling in the extremities. Musculoskeletal:??No muscle pain, back pain, joint pain or stiffness. Skin:??No rash or itching. Endocrine:??No reports of sweating. No cold or heat intolerance. No polyuria or polydipsia. Psychiatric:??No depression or anxiety. Objective Vital Signs?? Temperature: 97.7 DegF (02/28/25 00:00:00) Temperature Route: Axillary (02/28/25 00:00:00) Pulse Rate: 64 bpm (02/28/25 00:00:00) Heart Rate Monitored:??104 bpm??High (02/27/25 18:00:55) Respiratory Rate: 20 br/min (02/28/25 00:00:00) Vented: No (02/27/25 18:00:00) Systolic Blood Pressure: 135 mm Hg (02/28/25 00:00:00) Diastolic Blood Pressure: 70 mm Hg (02/28/25 00:00:00) Blood pressure sites: Arm, right (02/28/25 00:00:00) Mean Arterial Pressure: 92 mm Hg (02/28/25 00:00:00) Pulse Pressure: 65 mm Hg (02/28/25 00:00:00) Oxygen Saturation: 100 % (02/28/25 00:00:00) Liters per Minute: 3 L/min (02/27/25 18:58:00) Mode of Delivery (Oxygen): CPAP (02/28/25 00:00:00) Early Warning Score: 2 (02/28/25 01:02:13) ? Physical Exam Constitutional: Alert, in no distress. Mental Status: Oriented to person, place and time. Head: Normocephalic. Eyes: Pupils are equal, round and reactive to light. Extraocular muscles intact. Ear, Nose and Throat: Oropharynx clear, mucous membranes moist. Neck: Supple, Full range of motion. Respiratory: Scattered rhonchi. Cardiovascular: S1 S2 regular. No murmurs, rubs or gallops. Gastrointestinal: Abdomen soft, non-tender, non-distended. Normal bowel sounds.?? Neurologic: Cranial nerves II-XII grossly intact.?? Power??5/5 x 4 Skin: No rashes or lesions. No petechiae or purpura.?? Musculoskeletal: No cyanosis or clubbing. No gross deformities. Normal range of motion. Psychiatric: Normal mood and affect _ Inpatient Medications Medications (26) Active SCHEDULED: (18) Aspirin 81 mg EC Tablet (Aspirin Enteric Coated) ??81 mg, By Mouth, Daily Atorvastatin 40 mg Tablet (atorvastatin 40 mg oral tablet) ??40 mg, By Mouth, Daily at bedtime Breo Ellipta 200 mcg / 25 mcg Inhaler (Breo Ellipta 200 mcg-25 mcg Inhaler) ??1 puffs, Inhalation, Daily Enoxaparin 40 mg Inj (Enoxaparin Inj) ??40 mg 0.4 mL, Subcutaneous Injection, Daily Furosemide 20 mg Tablet (Lasix 20 mg oral tablet) ??20 mg, By Mouth, Daily Gabapentin 400 mg Capsule (gabapentin 100 mg oral capsule) ??400 mg, By Mouth, 4 times a day Insulin Glargine 100 units/mL Inj (Lantus Inj) ??5 units 0.05 mL, Subcutaneous Injection, 2 times aday Insulin Lispro 100 units/mL Inj (Insulin LISPRO Sliding Scale) ??2-12 units, Subcutaneous Injection, 3 times a day before meals Levofloxacin 750 mg Tablet (Levofloxacin Tablet) ??750 mg, By Mouth, Every 24 hours NaCl 0.9% Flush 3ml (NaCL 0.9% Flush) ??3 mL, IV Push, Every 8 hours Nicotine 21 mg / 24 hour Patch (Nicotine Topical) ??21 mg, Topically, Daily Pantoprazole 40 mg EC Tablet (pantoprazole 40 mg oral delayed release tablet) ??40 mg, By Mouth, Daily PredniSONE 20 mg Tablet (predniSONE 20 mg oral tablet) ??40 mg, By Mouth, Daily Quetiapine 25 mg Tablet (SEROquel 25 mg oral tablet) ??50 mg, By Mouth, 2 times a day Remove Patch (Remove ??Patch) ??1 each, Topically, Daily Sertraline 50 mg Tablet (sertraline 50 mg oral tablet) ??150 mg, By Mouth, Daily Spiriva Respimat 2.5 mcg Inhaler (Spiriva Respimat Inhaler) ??2 puffs, Inhalation, Daily Topiramate 25 mg Tablet (Topiramate Tablet) ??50 mg, By Mouth, 2 times a day CONTINUOUS: (0) PRN: (8) Acetaminophen 325 mg Tablet (Tylenol 325 mg oral tablet) ??975 mg, By Mouth, Every 8 hours Albuterol 90mcg/Inhalation Inhaler HFA (albuterol CFC free 90 mcg/inh inhalation aerosol) ??90 mcg 1 puffs, Inhalation, Every 4 hours Albuterol/Ipratropium Inhalation Frances 3mL (Duoneb Inhalation Solution) ??1 vials, BAND Nebulizer, Every 4 hours Dextromethorphan-Guaifenesin 20 mg-200 mg/10 mL Liqu UD (Robitussin DM Liquid) ??10 mL, By Mouth, Every 4 hours Melatonin 3 mg Tablet (Melatonin Tablet) ??3 mg, By Mouth, Daily at bedtime NaCl 0.9% Flush 3ml (NaCL 0.9% Flush) ??3 mL, IV Push, Every 8 hours Polyethylene Glycol 17 Gm Powder (MiraLax Powder) ??17 Gm 1 pack/packet, By Mouth, Daily Senna Tablet ??8.6 mg 1 tablet, By Mouth, 2 times a day ? Results Recent Labs BACTERIOLOGY Sputum Culture Isolate 1 Comment ()?? 02/26/2025 07:45 Sputum Culture Status Preliminary report ()?? 02/26/2025 07:45 ?? BLOOD COUNT & DIFF WBC 15.7 k/mm3 (High)?? 02/27/2025 04:28 RBC 4.27 m/mm3 ()?? 02/27/2025 04:28 Hgb 8.9 Gm/dL (Low)?? 02/27/2025 04:28 Hct 32.6 % (Low)?? 02/27/2025 04:28 MCV 76.3 femtoliters (Low)?? 02/27/2025 04:28 MCH 20.8 pg (Low)?? 02/27/2025 04:28 MCHC 27.3 Gm/dL (Low)?? 02/27/2025 04:28 Platelet Count 174 k/mm3 ()?? 02/27/2025 04:28 RDW-SD 57.4 femtoliters (High)?? 02/27/2025 04:28 MPV 9.2 femtoliters (Low)?? 02/27/2025 04:28 Nucleated RBC (Automated) 0.1 #/100 WBC'S ()?? 02/27/2025 04:28 Abs. NRBC 0.0 k/mm3 ()?? 02/27/2025 04:28 Abs. Neut 10.9 k/mm3 (High)?? 02/27/2025 04:28 Abs. Lymph 3.5 k/mm3 (High)?? 02/27/2025 04:28 Abs. [place] 1.1 k/mm3 (High)?? 02/27/2025 04:28 Abs. Eo 0.1 k/mm3 ()?? 02/27/2025 04:28 Abs. Baso 0.0 k/mm3 ()?? 02/27/2025 04:28 Neut % 69.9 % ()?? 02/27/2025 04:28 Lymph % 22.5 % ()?? 02/27/2025 04:28 [place] % 6.7 % ()?? 02/27/2025 04:28 Eos % 0.4 % ()?? 02/27/2025 04:28 Baso % 0.1 % ()?? 02/27/2025 04:28 RBC Morphology SLIGHT ()?? 02/27/2025 04:28 Imm Gran 0.4 % ()?? 02/27/2025 04:28 Abs. Imm Gran 0.1 k/mm3 ()?? 02/27/2025 04:28 ?? CHEM GENERAL Sodium 137 mmol/L ()?? 02/27/2025 04:28 Potassium 3.9 mmol/L ()?? 02/27/2025 04:28 Chloride 102 mmol/L ()?? 02/27/2025 04:28 Bicarbonate Level 28 mmol/L ()?? 02/27/2025 04:28 Anion Gap 7 mmol/L ()?? 02/27/2025 04:28 Glucose Level 107 mg/dL (High)?? 02/27/2025 04:28 Glucose, POC 161 mg/dL (High)?? 02/28/2025 01:00 BUN 21 mg/dL (High)?? 02/27/2025 04:28 Creatinine-Blood 0.67 mg/dL ()?? 02/27/2025 04:28 Estimated GFR Creatinine 103 ML/MIN/1.73 M2 ()?? 02/27/2025 04:28 Calcium 8.7 mg/dL ()?? 02/27/2025 04:28 Phosphorus 3.1 mg/dL ()?? 02/27/2025 04:28 Magnesium 1.9 mg/dL ()?? 02/27/2025 04:28 ?? URINE OTHER Est Creatinine Clearance 64.13 mL/min ()?? 02/27/2025 05:16 ? Assessment/Plan ?? Diagnoses Acute on chronic respiratory failure ??(J96.20) Anemia ??(D64.9) Anxiety and depression ??(F41.9) COPD exacerbation ??(J44.1) Diabetes ??(E11.9) Nicotine dependence ??(F17.200) HENRY (obstructive sleep apnea) ??(G47.33) Pneumonia ??(J18.9) RSV (respiratory syncytial virus infection) ??(B33.8) ?? Acute on chronic respiratory failure (J96.20):??. COPD exacerbation (J44.1):??. Pneumonia (J18.9):??. RSV (respiratory syncytial virus infection) (B33.8):? Clinically improving.?? Extubated 02/26 Continue treatment for COPD exacerbation with pulse prednisone??and inhalers On Levaquin for??possible community-acquired pneumonia Continue isolation precautions??in light of RSV ?? HENRY (obstructive sleep apnea) (G47.33):? BiPAP at bedtime ?? Diabetes (E11.9):? Continue Lantus Sliding scale Hypoglycemic measures as needed ?? Nicotine dependence (F17.200):? Continue nicotine patch ?? Anemia (D64.9):? Monitor hemoglobin Transfuse for hemoglobins in 7 ?? Anxiety and depression (F41.9):? Continue sertraline/Seroquel ?? VTE Prophylaxis:? Lovenox subcu ?VTE Prophylaxis Assessment:??VTE Prophylaxis Ordered ?? Code Status:? Full code ?Order Code Status:??Code Status Ordered ?? Patient seen 02/27/2025 ? Note * Leanne Mcclellan RN: PERFORM Event Display: Discharge/Transfer Note Hospital Authored Date: [id number] Nursing Discharge Note Entered On: 02/28/2025 12:49 EDT Performed On: 02/28/2025 12:48 EDT by Leanne Mcclellan RN Nursing Discharge Note 2 Discharge Time : 02/28/2025 12:48 EDT Discharge Level of Care at Discharge : Homehealth/VNA Discharge VNA/Hospice/Home Care(v001) : [facility] Patient Left Unit Via : Wheelchair Patient Accompanied Off Unit with : Responsible adult DC Instructions Provided & Signed by Pt : Yes Patient Understands D/C Instructions : Yes Patient Instructions Discharge Signed : Yes Did Pt have Specialty Bed or Wound Vac : No Vy FLORES, Leanne - 02/28/2025 12:48 EDT * Landry LEOS, Bereket: MODIFY, MODIFY, PERFORM Event Display: Discharge/Transfer Note Hospital Authored Date: [id number] Patient: ??SILVERIO, CYNTHIA ? Age:??54 Years?Sex:??Female?:??1970?? Patient Information Discharge Location: W3 Primary Care Physician: Joe Hale NP Admit Date/Time: 02/25/2025 21:27 Discharge Disposition Discharge Disposition: Home with Home Health Discharge Diagnosis General medical ([id number]) Cardiovascular - Respiratory ([id number]) COPD exacerbation (J44.1) Acute on chronic respiratory failure (J96.20) Pneumonia (J18.9) RSV (respiratory syncytial virus infection) (B33.8) HENRY (obstructive sleep apnea) (G47.33) Diabetes (E11.9) Anxiety and depression (F41.9) Anemia (D64.9) Nicotine dependence (F17.200) _ Discharge Medications Acetaminophen (acetaminophen 650 mg oral tablet, extended release)??1 tab(s) 650 Milligram By Mouth2 times a day as needed as needed for pain Albuterol (albuterol 0.083% inhalation solution)??3 Milliliter 2.5 Milligram Every 4 hours as needed Wheezing/Shortness of Breath Albuterol (Ventolin HFA 108 mcg/inh inhalation aerosol with adapter)??2 inhalation 180 Microgram Inhalation Every 6 hours as needed as needed for shortness of breath or wheezing Albuterol/Ipratropium (albuterol-ipratropium 3 mg-0.5 mg/3 ml inhalation solution)??3 Milliliter Neb 4 times a day as needed as needed for shortness of breath or wheezing Aspirin (aspirin 81 mg oral delayed release tablet)??81 Milligram 1 tablet By Mouth Daily Atorvastatin (atorvastatin 40 mg oral tablet)??1 tab(s) 40 Milligram By Mouth Daily Calcium And Vitamin D Combination (Calcet 500 mg-400 intl units oral tablet, chewable)??1 tab(s) ByMouth Daily Durable Medical Equipment (Spacer to be used with inahlers)??See Instructions use spacer with inhalers Esomeprazole (esomeprazole 40 mg oral enteric coated capsule)??1 capsule 40 Milligram By Mouth Daily Ferrous Fumarate (ferrous fumarate 324 mg oral tablet)??1 tab(s) 324 Milligram By Mouth Daily Fexofenadine (Allergy Relief (Fexofenadine HCl) 180 mg oral tablet)??1 tab(s) 180 Milligram By Mouth Daily Furosemide (furosemide 20 mg oral tablet)??20 Milligram 1 tablet By Mouth Daily Gabapentin (gabapentin 800 mg oral tablet)??1 tab(s) 800 Milligram By Mouth 4 times a day GlipiZIDE (glipiZIDE 5 mg oral tablet)??5 Milligram 1 tablet By Mouth Daily Guaifenesin (guaiFENesin 100 mg/5 mL oral liquid)??5 Milliliter 100 Milligram By Mouth Every 4 hours as needed for cough Ibuprofen (ibuprofen 800 mg oral tablet)??1 tab(s) 800 Milligram By Mouth 2 times a day as needed for pain Insulin Glargine (Lantus Solostar Pen 100 units/mL subcutaneous solution)??16 unit(s) Subcutaneous Injection Daily at bedtime Levofloxacin (levoFLOXacin 750 mg oral tablet)??750 Milligram By Mouth Every 24 hours for 5 Days Losartan (losartan 50 mg oral tablet)??1 tab(s) 50 Milligram By Mouth Daily olodaterol-tiotropium (Stiolto Respimat 60 ACT 2.5 mcg-2.5 mcg/inh inhalation aerosol)??2 inhalation Inhalation Daily at the same time every day PredniSONE (predniSONE 20 mg oral tablet)??40 Milligram By Mouth Daily for 5 Days Quetiapine (QUEtiapine 100 mg oral tablet)??100 Milligram 1 tablet By Mouth 3 times a day Sertraline (sertraline 100 mg oral tablet)??1 tab(s) 100 Milligram By Mouth Daily Sertraline (sertraline 25 mg oral tablet)??1 tab(s) 25 Milligram By Mouth Daily Tizanidine (tiZANidine 4 mg oral tablet)??4 Milligram 1 tablet By Mouth 2 times a day Topiramate (topiramate 50 mg oral tablet)??TAKE 1 TABLET BY MOUTH TWICE A DAY ? Quality Measures Tobacco Use Treatment:? Discharge Medications New Ferrous Fumarate (ferrous fumarate 324 mg oral tablet)1 tab(s) Oral Daily. Refills: 1. Levofloxacin (levoFLOXacin 750 mg oral tablet)750 Milligram Oral every 24 hours for 5 Days. Refills: 0. Changed PredniSONE (predniSONE 20 mg oral tablet)40 Milligram Oral Daily for 5 Days. Refills: 0. Unchanged Acetaminophen (acetaminophen 650 mg oral tablet, extended release)1 tab(s) Oral twice a day as needed as needed for pain. Albuterol (albuterol 0.083% inhalation solution)3 Milliliter every 4 hours as needed Wheezing/Shortness of Breath. Albuterol (Ventolin HFA 108 mcg/inh inhalation aerosol with adapter)2 inhalation Inhalation every 6hours as needed as needed for shortness of breath or wheezing. Albuterol/Ipratropium (albuterol-ipratropium 3 mg-0.5 mg/3 ml inhalation solution)3 Milliliter Nebulized inhalation 4 times a day as needed as needed for shortness of breath or wheezing. Aspirin (aspirin 81 mg oral delayed release tablet)1 tab(s) Oral Daily. Atorvastatin (atorvastatin 40 mg oral tablet)1 tab(s) Oral Daily. Calcium And Vitamin D Combination (Calcet 500 mg-400 intl units oral tablet, chewable)1 tab(s) OralDaily. Durable Medical Equipment (Spacer to be used with inahlers)use spacer with inhalers. Refills: 0. Esomeprazole (esomeprazole 40 mg oral enteric coated capsule)1 capsule Oral Daily. Fexofenadine (Allergy Relief (Fexofenadine HCl) 180 mg oral tablet)1 tab(s) Oral Daily. Furosemide (furosemide 20 mg oral tablet)1 tab(s) Oral Daily. Gabapentin (gabapentin 800 mg oral tablet)1 tab(s) Oral 4 times a day. GlipiZIDE (glipiZIDE 5 mg oral tablet)1 tab(s) Oral Daily. Guaifenesin (guaiFENesin 100 mg/5 mL oral liquid)5 Milliliter Oral every 4 hours as needed for cough. Ibuprofen (ibuprofen 800 mg oral tablet)1 tab(s) Oral twice a day as needed for pain. Insulin Glargine (Lantus Solostar Pen 100 units/mL subcutaneous solution)16 unit(s) Subcutaneous Injection Daily at Bedtime. Losartan (losartan 50 mg oral tablet)1 tab(s) Oral Daily. olodaterol-tiotropium (Stiolto Respimat 60 ACT 2.5 mcg-2.5 mcg/inh inhalation aerosol)2 inhalation Inhalation Daily. at the same time every day. Quetiapine (QUEtiapine 100 mg oral tablet)1 tab(s) Oral 3 times a day. Sertraline (sertraline 100 mg oral tablet)1 tab(s) Oral Daily. Sertraline (sertraline 25 mg oral tablet)1 tab(s) Oral Daily. Tizanidine (tiZANidine 4 mg oral tablet)1 tab(s) Oral twice a day. Topiramate (topiramate 50 mg oral tablet)TAKE 1 TABLET BY MOUTH TWICE A DAY. Discontinued Theophylline (theophylline 400 mg/24 hours oral tablet, extended release)1 tab(s) Oral every 12 hours. Hospital Course ?? 54-year-old female??with a history of COPD, HENRY,??chronic respiratory failure on oxygen,??nicotine dependence,??diabetes, depression, cocaine use disorder??presented to the ER on 02/25??with??dyspnea??and fever.?? She reportedly was experiencing increased respiratory distress and somnolence??necessitating intubation.?? She was started on??antibiotics for possible community-acquired pneumonia and subsequently was found to be RSV positive.?? She was extubated on 02/26 ?? Patient was then transferred to medical floor ?? Today, patient feels??back to her baseline??and requesting to be discharged. ??Her shortness of breath has improved.?? Denies any fever, chills, nausea, vomiting, chest pain. ? To her oxygen of 2 to 3 L??shows no sign of respiratory distress ?? She was??hemodynamically stable, saturating her baseline oxygen??and mentally intact, time of discharge.?? Next She is agrees with discharge planning. ?? Her family will come to pick her up??along with oxygen. ? Acute on chronic respiratory failure (J96.20):??. COPD exacerbation (J44.1):??. Pneumonia (J18.9):??. RSV (respiratory syncytial virus infection) (B33.8):? Extubated 02/26 To her baseline oxygen of 2 to 3 L Continue??Levaquin for 5 more days to cover??community-acquired pneumonia Home inhalers Continue home oxygen and??NIV Outpatient follow-up with pulmonary and PCP ?? HENRY (obstructive sleep apnea) (G47.33):? BiPAP at bedtime ?? Diabetes (E11.9):? Home insulin regimen ?? Nicotine dependence (F17.200):? Continue nicotine patch ?? Anemia (D64.9):? Ferritin and??iron on the lower side. ??Hemoglobin 8 No evidence of bleeding Started on iron supplement on discharge ?? Cardiomyopathy -EF 40-45% -Likely??NICM -PCP followup??outpt -Would benefit from cardio referral as well -COntinue home losartan lasix ?? Anxiety and depression (F41.9):? Continue sertraline/Seroquel ?? Disposition: Home with services ? Objective Assessment and Plan ? Vital Signs?? Temperature: 97.6 DegF (02/28/25 07:47:00) Temperature Route: Oral (02/28/25 07:47:00) Pulse Rate: 72 bpm (02/28/25 10:00:00) Heart Rate Monitored:??104 bpm??High (02/27/25 18:00:55) Respiratory Rate: 18 br/min (02/28/25 08:53:00) Vented: No (02/27/25 18:00:00) Systolic Blood Pressure: 103 mm Hg (02/28/25 07:47:00) Diastolic Blood Pressure: 68 mm Hg (02/28/25 07:47:00) Blood pressure sites: Arm, right (02/28/25 07:47:00) Mean Arterial Pressure: 80 mm Hg (02/28/25 07:47:00) Pulse Pressure: 35 mm Hg (02/28/25 07:47:00) Oxygen Saturation: 95 % (02/28/25 10:00:00) Liters per Minute: 3 L/min (02/28/25 10:00:00) Mode of Delivery (Oxygen): Nasal cannula (02/28/25 10:00:00) Early Warning Score: 7 (02/28/25 10:57:26) ? . Physical Exam General : awake oriented NAD HEENT: No??icterus Respiratory:??Decreased vision bilaterally.?? No wheezes. ??On 3 L oxygen by nasal cannula at her baseline Cardiovascular:??Normal rate and rhythm. ??No murmur : Soft, nontender bowel sound present EXTR extremities: No peripheral edema Neuro: Moving all EXTR spontaneously. ??No facial droop or slurred speech [facility] ?? Patient Instructions YOu were admitted for respiratory failure needing intubation. With appropriate treatment your condition improved -Please take medications as mentioned in discharge summary -Followup with PCP -Followup with pulmonary -If any symptoms like worsening SOB, chest pain, passing out then please seek medical attention immediately -COntinue using your BIPAP and oxygen at home Home Health Face to Face *Denotes mandatory gallagher ?? *I certify that this patient is under my care and that I or an allowed non- physician working with me had a face to face encounter with the patient on this date:??02/28/2025 11:37 ?? *The encounter with the patient was in whole, or in part, for the following medical condition, which is the primary diagnosis(es) for home health care:??General medical ([id number]) Cardiovascular - Respiratory ([id number]) COPD exacerbation (J44.1) Acute on chronic respiratory failure (J96.20) Pneumonia (J18.9) RSV (respiratory syncytial virus infection) (B33.8) HENRY (obstructive sleep apnea) (G47.33) Diabetes (E11.9) Anxiety and depression (F41.9) Anemia (D64.9) Nicotine dependence (F17.200) ?? *Select the indications for the discipline/s that are being arranged for this patient. Nursing (select all that apply): [_] None [x_] Medication management (reconciliation, teaching)?? [_x] Chronic disease management?? [_] Wound care and treatment?? [x_] Home safety evaluation [_] Administer SQ/IM/IV medications?? [_] Cath care?? [_] Drain care?? [_] Trach or GT care?? Other _ Occupation Therapy (select all that apply): [_] None [_] ADL Management [_] Fall prevention training [_] Energy conservation [_] Cognitive training Other _ Physical Therapy (select all that apply): [_] None [_] Functional mobility training [_] Home exercise program to strengthen [_] Increase ROM?? [_] Falls prevention training [_] Home maintenance program for chronic disease Other _ Speech Therapy (select all that apply): [_] None [_] Swallow evaluation and training [_] Speech and language training [_] Cognitive training to process, organize, and/or recall information Other _ ? *Homebound due to (select all that apply): [x_] Inability to leave home without assistance/supervision [_] Inability to ambulate without assistance [_] Pain [_] Decreased strength and endurance [_] Unsteady gait [x_] Severe SOB and fatigue [_] Impaired transfers [_] Inability to negotiate stairs [_] Limited weight bearing [_] Mental status change? *Physician Signature: _BEREKET ALATORRE ?? *By signing this, I certify that I have personally evaluated the patient and agree with the findings and recommendations as documented above. ? _35 minutes spent on discharge * Leanne Mcclellan RN: PERFORM Event Display: Patient Education/Instruction Authored Date: [place]patient [place] [address] Name: CYNTHIA SAWYER : 1970?? Visit: 02/25/2025 21:27?? Current Date: 02/28/2025 12:14 ?? Account: [id number]?? Inpatient Adult Discharge Instructions We would like to thank you for allowing us to assist you with your healthcare needs. The following includes patient education materials and information regarding your injury/illness. Our entire staffstrives to provide an excellent experience for our patients and their families. PLEASE ENSURE YOU FOLLOW-UP PER THE INSTRUCTIONS BELOW! ?? YOUR OPINION IS IMPORTANT TO US! Please complete the survey you may receive by mail or email. Your feedback will be used to make improvements to the healthcare experiences of our patients and their families. Surveys are administered by [email or web address]. ?? If further treatment with your primary care physician or another doctor is recommended, it is important for you to keep the appointment. Call your primary care physician or return to the Emergency Department immediately if your condition worsens, fails to improve, or new symptoms develop. If you need to find a doctor, you can call [facility] Link for a referral at [phone] or toll free at [phone]) or log in to [email or web address].. ?? [facility], in keeping with [facility] guidance, no longer requires face masks for staff, patientsor visitors in most situations. Similiar to time spent indoors at other locations, there is the chance that you were exposed to repiratory viruses during your time with us (such as flu or COVID-19). If you develop symptoms concerning for a viral respiratory infection, please seek testing (and treatment if indicated) from your medical provider or home test kit. ?? You can view and manage your care through the patient portal or by using a health care radhika of your choosing. [employer] is a website that allows you to securely view your medical information including your hospital discharge summary, office visit summaries, medications and follow-up visits. You can also request appointments, renew medications, and request access to your medical information using a health care radhika of your choosing, or just ask a question. You are entitled to know the individuals who participated in your treatment.This information is available within your medical record and will be provided upon your request. You can enroll at [email or web address] or register during your next office visit. You have been discharged from [facility], Patient Care Unit: W3??. If you have any questions or concerns following your procedure, please call your surgeon?s office for assistance. [facility] Your Care Team Attending Physician Bereket Alatorre MD?? Consulting Providers Bereket Alatorre MD?? Discharging Providers Bereket Alatorre MD Reason for Your Visit see CHEPE level 1 sheet?? Your Diagnosis Acute on chronic respiratory failure Anemia Anxiety and depression Cardiovascular - Respiratory Diabetes General medical Nicotine dependence HENRY (obstructive sleep apnea) Pneumonia RSV (respiratory syncytial virus infection) Tests Performed Below is a partial list of the tests performed during your hospitalization. You may have had other tests and procedures not included in this list. Please discuss all test results with your provider. ABG Amphetamine Urine Screen Barbiturate Urine Screen Basic Metabolic Panel Benzodiazepine Urine Screen Blood Culture Blood Culture #2 Blood Culture 2 Results Blood Culture Result Blood Gas Arterial Cannabinoid Urine Screen CBC w/ Differential Cocaine Urine Screen Comprehensive Metabolic Panel COVID-19 (Novel Coronavirus), Rapid PCR Culture Sputum Only w/ Gram Smear FERRITIN GLUCOSE POC High Sensitivity Troponin T IRON & TIBC Lactate Level Magnesium Level Opiate Screen Urine Phosphorus Level PROBNP PROCALCITONIN Respiratory Pathogen PCR with COVID-19 Sputum Culture Theophylline Level Troponin T, High Sensitivity Urinalysis w/hold for Urine Culture XR Chest Portable Add On Lab Order?? Amphetamine Urine Screen?? B Type Natriuretic Peptide (NT-proBNP) (PROBNP)?? Barbiturate Urine Screen?? Basic Metabolic Panel?? Benzodiazepine Urine Screen?? Blood Culture?? Blood Culture #2?? Blood Culture 2 Results?? Blood Culture Result?? Blood Gas Arterial (ABG)?? CBC w/ Differential?? COVID-19 (Novel Coronavirus), Rapid PCR?? Cannabinoid Urine Screen?? Cocaine Urine Screen?? Comprehensive Metabolic Panel?? Ferritin?? Glucose POC?? High??Sensitivity??Troponin T (Troponin T, High Sensitivity)?? Iron + Iron Binding Capacity (IRON & TIBC) Lactic Acid Level (Lactate Level)?? Magnesium Level?? Opiate Screen Urine?? Phosphorus Level?? Procalcitonin Level (PROCALCITONIN)?? Respiratory Pathogen PCR with COVID-19?? Sputum Culture?? Sputum Only, Gram Smear w/Culture Rfx (Culture Sputum Only w/ Gram Smear)?? Theophylline Level?? Urinalysis w/hold for Urine Culture?? Chest Portable (XR Chest Portable)?? Primary Care Provider Joe Hale NP? Advance Directive Health Care Proxy on File No Patient refuses to discuss Discharge Vitals Temperature: 97.6 DegF Height: 150 cm Pulse Rate: 72 bpm Weight: 84 kg Respiratory Rate: 18 br/min Body Mass Index:??34.89 kg/m2??Critical Systolic Blood Pressure: 103 mm Hg Body surface area: 1.81 Diastolic Blood Pressure: 68 mm Hg ?? Oxygen Saturation: 95 % ?? Studies Pending All studies ordered during this hospital stay have been completed unless listed below. Please discuss all pending results with your provider listed above in these instructions. ?? Add On Lab Order?? Basic Metabolic Panel?? CBC w/ Differential?? Magnesium Level?? Phosphorus Level?? What to do next Instructions From Your Doctor YOu were admitted for respiratory failure needing intubation. With appropriate treatment your condition improved -Please take medications as mentioned in discharge summary -Followup with PCP -Followup with pulmonary -If any symptoms like worsening SOB, chest pain, passing out then please seek medical attention immediately -COntinue using your BIPAP and oxygen at home ?? Orders??:Diabetic Diet :fair :Fair? 02/28/25 12:02:00 EDT?? You Need to Schedule the Following Appointments Follow Up with??Joe Hale NP ?? Where:[address] [place] [id number]- Discharge Medications CYNTHIA SAWYER :1970 Visit Date:02/25/2025 Medications: Please continue your medications until treatment is completed or stopped by your provider. Medications not listed below should be discontinued. Discuss any questions related to medications with your provider. What How Much When Instructions Next Dose New Ferrous Fumarate (ferrous fumarate 324 mg oral tablet) 1 tab(s) Oral Daily Refills: 1 Ordering Physician: Landry LEOS, Bereket Valenzuelaup at [facility]/pharmacy #1972 tomorrow New Levofloxacin (levoFLOXacin 750 mg oral tablet) 750 Milligram Oral Every 24 hours Duration: 5 Days Ordering Physician: Bereket Alatorre MDup at [facility]/pharmacy #1972 tonight Changed PredniSONE (predniSONE 20 mg oral tablet) 40 Milligram Oral Daily Duration: 5 Days Ordering Physician: Bereket Alatorre MD at [facility]/pharmacy #1972 tomorrow Unchanged Acetaminophen (acetaminophen 650 mg oral tablet, extended release) 1 tab(s) Oral Twice a day as needed for as needed for pain Unchanged Albuterol (albuterol 0.083% inhalation solution) 3 Milliliter Every 4 hours as needed for Wheezing/Shortness of Breath Unchanged Albuterol (Ventolin HFA 108 mcg/ inh inhalation aerosol with adapter) 2 inhalation Inhalation Every 6 hours as needed for as needed for shortness of breath or wheezing Unchanged Albuterol/ Ipratropium (albuterol-ipratropium 3 mg-0.5 mg/ 3 ml inhalation solution) 3 Milliliter Nebulized inhalation 4 times a day as needed for as needed for shortness of breath or wheezing Unchanged Aspirin (aspirin 81 mg oral delayed release tablet) 1 tab(s) Oral Daily tomorrow Unchanged Atorvastatin (atorvastatin 40 mg oral tablet) 1 tab(s) Oral Daily tomorrow Unchanged Calcium And Vitamin D Combination (Calcet 500 mg-400 intl units oral tablet, chewable) 1 tab(s) Oral Daily tomorrow Unchanged Durable Medical Equipment (Spacer to be used with inahlers) See instructions Special Instructions: use spacer with inhalers Ordering Physician: Jennifer LEOS, Catrina ?? Unchanged Esomeprazole (esomeprazole 40 mg oral enteric coated capsule) 1 capsule Oral Daily tomorrow Unchanged Fexofenadine (Allergy Relief (Fexofenadine HCl) 180 mg oral tablet) 1 tab(s) Oral Daily tomorrow Unchanged Furosemide (furosemide 20 mg oral tablet) 1 tab(s) Oral Daily tomorrow Unchanged Gabapentin (gabapentin 800 mg oral tablet) 1 tab(s) Oral 4 times a day this afternoon Unchanged GlipiZIDE (glipiZIDE 5 mg oral tablet) 1 tab(s) Oral Daily tomorrow Unchanged Guaifenesin (guaiFENesin 100 mg/ 5 mL oral liquid) 5 Milliliter Oral Every 4 hours as needed for for cough Unchanged Ibuprofen (ibuprofen 800 mg oral tablet) 1 tab(s) Oral Twice a day as needed for for pain Unchanged Insulin Glargine (Lantus Solostar Pen 100 units/ mL subcutaneous solution) 16 unit(s) Subcutaneous Injection Daily at Bedtime tonight Unchanged Losartan (losartan 50 mg oral tablet) 1 tab(s) Oral Daily tomorrow Unchanged olodaterol-tiotropium (Stiolto Respimat 60 ACT 2.5 mcg-2.5 mcg/ inh inhalation aerosol) 2 inhalation Inhalation Daily Special Instructions: at the same time every day ?? tomorrow Unchanged Quetiapine (QUEtiapine 100 mg oral tablet) 1 tab(s) Oral 3 times a day tonight Unchanged Sertraline (sertraline 100 mg oral tablet) 1 tab(s) Oral Daily tomorrow Unchanged Sertraline (sertraline 25 mg oral tablet) 1 tab(s) Oral Daily tomorrow Unchanged Tizanidine (tiZANidine 4 mg oral tablet) 1 tab(s) Oral Twice a day tonight Unchanged Topiramate (topiramate 50 mg oral tablet) Special Instructions: TAKE 1 TABLET BY MOUTH TWICE A DAY ?? tonight Pharmacy Information [facility]/pharmacy #1972: [address], [place] [id number] [phone] ?? What How Much When Comments Stop Taking Theophylline (theophylline 400 mg/ 24 hours oral tablet,extended release) 1 tab(s) Oral Every 12 hours Prescription Given During Visit Ferrous Fumarate (ferrous fumarate 324 mg oral tablet) - 1 tablet = 324 mg, By Mouth, Daily, # 30 tablet, 1 Refills, [facility]/pharmacy #[facility], [address] [place] [phone]?? Levofloxacin (levoFLOXacin 750 mg oral tablet) - 750 mg, By Mouth, Every 24 hours, # 5 tablet, 0 Refills, [facility]/pharmacy #[facility], [address] [place] [phone]?? PredniSONE (predniSONE 20 mg oral tablet) - 40 mg, By Mouth, Daily, # 10 tablet, 0 Refills, [facility]/pharmacy #[facility], [address] [place] [phone]?? Laboratory Results Below is a partial list of the most recent Laboratory test results done prior to this discharge. You may have had other tests and procedures not included in this list. Please discuss all test resultswith your provider. Est Creatinine Clearance - 60.52 mL/min (02/28/2025) ABG (02/25/2025) ???pH - 7.38???pCO2 - 51 mm Hg???pO2 - 80 mm Hg???Bicarbonate, Estimated - 29 mmol/L???Specimen Type - Blood Gas - ARTERIAL???Percent O2 (FIO2) - 50% Amphetamine Urine Screen (02/26/2025) ???Amphetamine Screen, Urine - NONE DETECTED Barbiturate Urine Screen (02/26/2025) ???Barbiturate Screen, Urine - NONE DETECTED Basic Metabolic Panel (02/28/2025) ???Sodium - 140 mmol/L???Potassium - 3.9 mmol/L???Chloride - 104 mmol/L???Bicarbonate Level - 26 mmol/L???Anion Gap - 10 mmol/L???Glucose Level - 125 mg/dL???BUN - 17 mg/dL???Creatinine-Blood - 0.71 mg/dL???Estimated GFR Creatinine - 100 ML/MIN/1.73 M2???Calcium - 8.4 mg/dL Benzodiazepine Urine Screen (02/26/2025) ???Benzodiazepine Screen, Urine - NONE DETECTED Blood Culture (02/25/2025) ???Blood Culture Results - Preliminary report???Blood Culture Specimen Source - BLOOD Blood Culture #2 (02/25/2025) ???Blood Cult 2 Results - Preliminary report???Blood Culture 2 Specimen Source - BLOOD Blood Culture 2 Results (02/25/2025) ???Blood Culture 2 Isolate 1 - Comment Blood Culture Result (02/25/2025) ???Blood Culture Isolate 1 - Comment Blood Gas Arterial (02/25/2025) ???pH - 7.25???pCO2 - 83 mm Hg???pO2 - 46 mm Hg???Bicarbonate, Estimated - 35 mmol/L???Specimen Type - Blood Gas - ARTERIAL???Percent O2 (FIO2) - 40% Cannabinoid Urine Screen (02/26/2025) ???Cannabinoid Screen, Urine - NONE DETECTED CBC w/ Differential (02/28/2025) ???WBC - 12.2 k/mm3???RBC - 3.83 m/mm3???Hgb - 8.0 Gm/dL???Hct - 29.1 %???MCV - 76.0 femtoliters???MCH - 20.9 pg???MCHC - 27.5 Gm/dL???Platelet Count - 139 k/mm3???RDW-SD - 57.1 femtoliters???MPV - 10.3 femtoliters???Nucleated RBC (Automated) - 0.2 #/100 WBC'S???Abs. NRBC - 0.0 k/mm3???Abs. Neut - 7.6 k/mm3???Abs. Lymph - 3.6 k/mm3???Abs. [place] - 0.9 k/mm3???Abs. Eo - 0.1 k/mm3???Abs. Baso - 0.0 k/mm3???Neut % - 62.2 %???Lymph % - 29.2 %???[place] % - 7.5 %???Eos % - 0.5 %???Baso % - 0.2 %???Imm Gran - 0.4 %???Abs. Imm Gran - 0.1 k/mm3 Cocaine Urine Screen (02/26/2025) ???Cocaine Metabolite Screen, Urine - POSITIVE Comprehensive Metabolic Panel (02/26/2025) ???Sodium - 140 mmol/L???Potassium - 3.7 mmol/L???Chloride - 104 mmol/L???Bicarbonate Level - 25 mmol/L???Anion Gap - 11 mmol/L???Glucose Level - 171 mg/dL???BUN - 22 mg/dL???Creatinine-Blood - 0.57 mg/dL???Estimated GFR Creatinine - 107 ML/MIN/1.73 M2???Calcium - 7.4 mg/dL???Protein, Total - 5.2 Gm /dL???Albumin - 3.2 Gm/dL???AG Ratio - 1.6???Alkaline Phosphatase - 75 units/L???AST (SGOT) - 15 units/L???ALT (SGPT) - 16 units/L???Bilirubin, Total - 0.3 mg/dL COVID-19 (Novel Coronavirus), Rapid PCR (02/25/2025) ???COVID-19 by RT-PCR - NEGATIVE Culture Sputum Only w/ Gram Smear (02/26/2025) ???Sputum Culture Specimen Source - SPUTUM???Sputum Cult Epithelial Cells - Few???Gram Stain Evaluation - Comment???Sputum Gram Stain Result 1 - Comment???Sputum Gram Stain Result 2 - Comment???WhiteBlood Cells - Many FERRITIN (02/28/2025) ???Ferritin Level - 96 ng/mL GLUCOSE POC (02/28/2025) ???Glucose, POC - 199 mg/dL High Sensitivity Troponin T (02/25/2025) ???High Sensitivity Troponin (HSTnT) - 32 ng/L IRON & TIBC (02/28/2025) ???Iron Level - 18 mcg/dL???Iron Binding Capacity, Unsaturated - HEMOLYZED???Iron Binding Capacity,Estimated Total - Unable to calculate???% Iron Saturation - Unable to calculate Lactate Level (02/25/2025) ???Lactate - 1.2 mmol/L Magnesium Level (02/28/2025) ???Magnesium - 1.8 mg/dL Opiate Screen Urine (02/26/2025) ???Opiate Screen, Urine - NONE DETECTED Phosphorus Level (02/28/2025) ???Phosphorus - 2.9 mg/dL PROBNP (02/25/2025) ???Nt-Probnp - 1956 pg/mL PROCALCITONIN (02/26/2025) ???Procalcitonin - 0.44 ng/mL Respiratory Pathogen PCR with COVID-19 (02/26/2025) ???Adenovirus by PCR - NEGATIVE???Coronavirus 229E by PCR (not COVID-19) - NEGATIVE???Coronavirus HKU1 by PCR (not COVID-19) - NEGATIVE???Coronavirus NL63 by PCR (not COVID-19) - NEGATIVE???Coronavirus OC43 by PCR (not COVID-19) - NEGATIVE???Human Metapneumovirus by PCR - NEGATIVE???Rhinovirus/Enterovirus by PCR - POSITIVE???Influenza A by PCR - NEGATIVE???Influenza B by PCR - NEGATIVE???Parainfluenza 1 by PCR - NEGATIVE???Parainfluenza 2 by PCR - NEGATIVE???Parainfluenza 3 by PCR - NEGATIVE???Parainfluenza 4 by PCR - NEGATIVE???RSV by PCR - NEGATIVE???Bordetella Pertussis by PCR - NEGATIVE??? Chlamydophila Pneumoniae by PCR - NEGATIVE???Mycoplasma Pneumoniae by PCR - NEGATIVE???COVID-19 (SARS-CoV-2) by PCR - NEGATIVE???Bordetella Parapertussis by PCR - NEGATIVE Sputum Culture (02/26/2025) ???Sputum Culture Isolate 1 - Comment???Sputum Culture Status - Final report Theophylline Level (02/26/2025) Theophylline Level - <0.8 mg/L Troponin T, High Sensitivity (02/26/2025) ???High Sensitivity Troponin (HSTnT) - 20 ng/L Urinalysis w/hold for Urine Culture (02/26/2025) ???Appear/Color, Urine - YELLOW???Specific [place], Urine - 1.029???pH, Urine - 7.5???Albumin, Urine - TRACE???Glucose, Urine - 3+???Ketones, Urine - 2+???Bilirubin, Urine - NEGATIVE???Hemoglobin, Urine - NEGATIVE???Nitrite, Urine - NEGATIVE???Leukocyte, Urine - NEGATIVE???Urobilinogen - 2 mg/dL???WBC's, Urine - NONE SEEN???RBC's, Urine - NONE SEEN???Bacteria - SLIGHT???Hyaline Cast - 1 LPF???Amorphous Crystals - SLIGHT???Mucus - SLIGHT???Hold Urine Culture - Testing available 48 hours from time of collection. Allergies (NKA means No Known Allergies) Chantix(Severe)??anaphylaxis Zithromax??rash barium sulfate??angioedema cetirizine??rash doxycycline??swelling, Doxycycline adverse reaction famotidine??rash linaclotide??rash Problems Active Problems??(12) Alcoholism?? Asthma?? Central obesity?? Cholecystectomy?? Cocaine dependence in recovery?? COPD?? Depression?? Headache?? Obese class I?? HENRY on CPAP?? s/p btl?? Smoker?? Education Materials Below is the list of Educational Leaflet Providered with your Discharge Instructions. Valuables and Belongings I fully understand and agree that [facility] accepts no responsibility for all my personal property including clothing, toilet articles, radios, jewelry, dentures, hearing aids, rings, money, or any other property that is in my possession or is brought to me after admission. I understand certain valuables may be placed in a hospital safe for a short period of time. I understand that the hospital is not liable for loss or damage due to accident, fire, or other natural occurrence while said property is in the safe. I accept full responsibility for any personal property that I keep with me, and will not hold the hospital responsible in case of loss or disappearance. I acknowledge that i have been encouraged to send valuables and belongings home. ?? No Valuables/Belongings: No valuables/belongings present Review of Valuable and Belonging List: With patient Date for Pt to Sign Valuables/Belongings: 02/27/25 19:00:00 ?? Other Discharge Information ? Case Management Discharge Plan?? Discharge Plan?? Discharge Agency Information?? Discharge Level of Care at Discharge: Homehealth/VNA Name of Agency #1: [facility] ?? Discharge Transportation Arranged: Family Service Categories #1: Custodial Discharge VNA/Hospice/Home Care: [facility] ?? Service Comments #1: [facility] ?? to resume prior services ?? Pulmonary Rehab Status?? Pulmonary Rehab Discharge Status?? CPAP/BiPAP Mask Type: Full CPAP/BiPAP Mask Size: Small Respiratory Rate: 18 br/min PEEP: 5 ? Common Emergency Awareness Tips IS IT A STROKE? Act FAST and Check for these signs: FACE Does the face look uneven? ARM Does one arm drift down? SPEECH Does their speech sound strange? TIME Call at any sign of stroke ?? Heart Attack Signs Chest discomfort: Most heart attacks involve discomfort in the center of the chest and lasts more than a few minutes, or goes away and comes back. It can feel like uncomfortable pressure, squeezing, fullness or pain. Discomfort in upper body: Symptoms can include pain or discomfort in one or both arms, back, neck, jaw or stomach. Shortness of breath: With or without discomfort. Other signs: Breaking out in a cold sweat, nausea, or lightheaded. Remember, MINUTES DO MATTER. If you experience any of these heart attack warning signs, call to get immediate medical attention! ?? Smoking can increase your chances of developing chronic health problems and can cause harmful effects to other family members in your house. If you smoke, you are strongly encouraged to quit. Please call [email or web address] Link at [phone] or [phone] ([phone]) or log in to [email or web address] for referrals to smoking cessation programs. ?? 479 Suicide & Crisis Lifeline is available 21/01 if you or someone you know needs to find a reason to keep living. By calling 421 you'll be connected to a skilled, trained counselor at a crisis center in your area. INPATIENT DISCHARGE INSTRUCTIONS SIGNATURE PAGE SILVERIOCYNTHIA Location:[facility] Registration Date and Time:02/25/2025 21:27 EDT Primary Care Physician: Geoffrey YATES , Joe Tavarez, Attending Physician: Bereket Alatorre MD, I CYNTHIA SAWYER, have received the above patient education materials/instructions and have verbalized understanding. If ambulance or transport services are being used I further acknowledge being given a choice of service. ?? If you need to contact me, please call me at this number: . Patient/Bias Cutter Helper Name: Patient/Bias Cutter Helper Signature: Relationship to Patient: Witness Name/Signature: Date: Patient Care team information Care Team Personnel Name: Joe Hale NP Position: Reference Physician Member Role: PCP Address: [address] [place] [address] Telecom: Name: Bria Kidd RN Position: [facility] RN Member Role: Primary Care Nurse Care Team Related Persons Name: MARINA JIM Name: ASHLEY JIM Name: JESSICA BUTLER Insurance Providers Guarantor name: [facility] Health Plan Information #: 1 Payer: [employer] Payer Identifier: SANJANA Member Number: [id number] Group Number: [id number] Subscriber Identifier: [id number] Relationship to Subscriber: self Coverage Type: SANJANA Coverage Verification Date: SANJANA Telecom: Address:
--- NOTE | 2025-03-03 10:26 | MHC.OFFVIS ---
Vital Signs 03/03/25 10:35 Height 4 ft 11 in Weight 176 lb BMI 35.5 BP 128/60 Blood Pressure Location Rt brachial Position Sitting Pulse 102 H Intake Visit Reasons: Ventral hernia without obstruction or gangrene Intake Note: Patient referred by pcp Joe Hale PA-C for assessment and treatment of ventral hernia without obstruction or gangrene. Patient c/o: painful, bulging out, bothersome after eating. Sometimes nausea. Denies diarrhea, constipation. Imaging: CT abdomen pelvis~ 01-10-2025 Milk Bottler Required: No Accompanied by: daughter Jaja Allergies doxycycline Allergy (Severe, Verified 03/03/25 10:32) Swelling varenicline (From CHANTIX) Allergy (Severe, Verified 03/03/25 10:32) ANAPHYLAXIS azithromycin Allergy (Intermediate, Verified 03/03/25 10:32) Rash barium sulfate Allergy (Intermediate, Verified 03/03/25 10:32) angioedema cetirizine Allergy (Mild, Verified 03/03/25 10:32) Rash famotidine Allergy (Mild, Verified 03/03/25 10:32) Rash linaclotide (Linzess) Allergy (Mild, Verified 03/03/25 10:32) Rash HPI HPI Ventral hernia without obstruction or gangrene: Details: 54-year-old female referred for a ventral hernia. She has had multiple hernia repairs in the past. She says she has had ?7? hernia repairs and most of the have been with mesh She had a CAT scan done last month showing a small fat containing supraumbilical hernia. This is likely a recurrent hernia. She describes diffuse abdominal pain whenever she has. She says that she has had this for many years even with her previous hernia repairs She denies any nausea or vomiting. She does have multiple medical problems including CHF, COPD and is O2 dependent. She has very limited exercise tolerance. She is also morbidly obese. She is using a walker to ambulate. [facility] Medical History Recurrent hernia Supplemental oxygen dependent Urinary tract infection due to ESBL Klebsiella Chronic lung disease Chronic lung disease Chronic lung disease BAHMAN (generalized anxiety disorder) COPD (chronic obstructive pulmonary disease) Cocaine use disorder Cocaine abuse GERD (gastroesophageal reflux disease) Constipation Non-insulin dependent type 2 diabetes mellitus HENRY (obstructive sleep apnea) Acute exacerbation of chronic obstructive airways disease Asthma with exacerbation Obesity hypoventilation syndrome Chronic lung disease Hypoxic respiratory failure Nocturnal hypoxemia Diabetes mellitus COPD exacerbation Crack cocaine use Hyperkalemia Metabolic acidosis Leukocytosis Chest discomfort Chronic renal failure, stage 2 (mild) SOB (shortness of breath) Asthma Smoker Rotator cuff tendonitis GERD (gastroesophageal reflux disease) Chronic idiopathic constipation Bustos's esophagus Depression High triglycerides Gastroparesis Carpal tunnel syndrome of right wrist Nausea & vomiting Hernia Acute and chronic respiratory failure, unspecified whether with hypoxia or hypercapnia HTN (hypertension) Obesity (BMI 30-39.9) Knee pain, bilateral Surgical History History of cholecystectomy (~1988) History of carpal tunnel release Hx of tubal ligation History of pubovaginal sling (~2015) History of umbilical hernia repair (~2001) Hx of section History of open reduction and internal fixation (ORIF) procedure History of esophagogastroduodenoscopy (EGD) Family History Father Heart disease HENRY (obstructive sleep apnea) Family history of breast cancer Mother Asthma Emphysema, unspecified Bronchitis Smoker Alcoholism Bone marrow disease Maternal Grandmother Diabetes Social History Household Members: Unknown / Unable to assess Household Members Other:: daughter Housing: House Housing Other:: 3 family house Are you a primary day care aide to a significant other at home: No Do you presently have visiting nurse or other home services: Yes Unable to assess alcohol history related to: Unknown Alcohol intake: never Comment: refusing socks Patient Tobacco Use Status: Tobacco use Unknown Tobacco use type: Cigarette Cigarette Packs Per Day: 0.5 Cigarettes Per Day: 10 Years Smoked: 40 e-Cigarette/Vaping Use: Currently Using Second Hand Smoke Exposure: Yes Substance Use Type: Crack/Cocaine Advance Directives Date on File: 12/19/23 service: No Current occupational status: disabled 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 Review of Systems Const Denies chills and Denies fever(s) Card Denies chest pain, Reports dyspnea and Reports dyspnea on exertion Resp Denies cough, Reports dyspnea and Reports dyspnea on exertion GI Denies hematochezia and Denies change in bowel habits Denies hematuria Musc Reports abnormal gait, Reports back pain and Reports limited range of motion Neuro Reports abnormal gait, Denies focal weakness and Denies convulsions Psych Denies depression and Denies mood swings Physical Exam Vital Signs: Last Vital Signs Pulse 102 H 03/03/25 10:35 BP 128/60 03/03/25 10:35 BMI result Body Mass Index 35.5 Const Other: Using a walker, frail looking, appears short of breath, morbidly obese General: comfortable Orientation/consciousness: patient oriented x3 Neck Neck: Yes no lymphadenopathy Resp Other: Appears short of breath, on O2 by nasal cannula, with diffuse wheezing Cardio Rhythm: regular rhythm GI Other: Small reducible supraumbilical hernia, about 1.5 cm, nontender Palpation (GI): Soft to palpation, nontender and no guarding Neuro General: patient oriented x3 Assessment & Plan Assessment & Plan (1) Recurrent hernia: Code(s): K46.9 - Unspecified abdominal hernia without obstruction or gangrene Category: Medical Plan Review of her CAT scan shows that she has 1 fascial defect above the umbilicus, measuring about 1.5. This has fat containing.. This is likely a recurrent hernia says she has had multiple repairs in the past with mesh. I explained to her the technique of repair with mesh placement. I reviewed the risks including but not limited to bleeding, infections, bowel injury, recurrence, postop pain, inherent anesthesia risks, as well as the benefits and alternatives. I also explained to her what to expect postoperatively. 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 She is having shortness of breath at baseline and has very limited level of function and exercise tolerance. I therefore emphasized to her that at this time, I would not recommend doing any surgical intervention. I also recommended her to see her forest pathology associate professor as well as the electron beam photo mask maker as she says that she wanted to have surgery for the hernia She describes symptoms that appeared to be unrelated to her hernia. She says that she has diffuse abdominal pain whenever she eats. Her hernia is reducible and is fat containing and this is unlikely to be causing her symptoms. I did explained the above to her daughter Jaja who was with her. She seems to understand the above well. I gave her my card and I told him that she can come back to the office down the line if they want to review the option of surgery. Coding Level of Care Code New Pt Level 3 (09911) Diagnoses Recurrent hernia K46.9
[2025-03-03 10:35] VITALS: BP 128/60; PULSE 102; BMI 35.5
== END 2025-03-03 10:46 | disposition home or self-care (01) ==
LOC: HO.HGS 10:25
PROVIDERS: PCP Nurse Practitioner Family; Referring Provider Internal Medicine; Visit Provider Surgery
DX: K46.9 Unspecified abdominal hernia without obstruction or gangrene (principal)
CPT/HCPCS: 99203

== ENCOUNTER → 2025-03-03 10:24 | Outpatient (BNVA) | payer OTHER, SELFPAY | PROVIDERS: PCP Nurse Practitioner Family; Referring Provider Internal Medicine; Visit Provider Surgery | DX: R11.0 Nausea (principal); R10.84 Generalized abdominal pain; K46.9 Unspecified abdominal hernia without obstruction or gangrene | CPT/HCPCS: 99202 ==

== ENCOUNTER → 2025-03-04 06:48 | Outpatient (BNVA) | payer OTHER, SELFPAY | PROVIDERS: PCP Nurse Practitioner Family; Visit Provider Nurse Practitioner Family | DX: J44.1 Chronic obstructive pulmonary disease with (acute) exacerbation (principal); E66.2 Morbid (severe) obesity with alveolar hypoventilation; Z99.81 Dependence on supplemental oxygen; Z99.89 Dependence on other enabling machines and devices; Z68.35 Body mass index [BMI] 35.0-35.9, adult | CPT/HCPCS: 99212 ==

== ENCOUNTER 2025-03-04 13:08 | Outpatient (AMB) | payer OTHER, SELFPAY ==
--- NOTE | 2025-03-04 13:09 | A.OFFVIS_ITS ---
Vital Signs 03/04/25 13:10 Height 4 ft 11 in Weight 176 lb BMI 35.5 BP 109/58 L Blood Pressure Location Rt brachial Position Sitting Pulse 100 Pulse Source Pulse Oximeter Pulse Oximetry (%) 95 Oxygen Delivery Method Nasal Cannula Oxygen Flow Rate 2 Intake Visit Reasons: copd Allergies doxycycline Allergy (Severe, Verified 03/04/25 13:18) Swelling varenicline (From CHANTIX) Allergy (Severe, Verified 03/04/25 13:18) ANAPHYLAXIS azithromycin Allergy (Intermediate, Verified 03/04/25 13:18) Rash barium sulfate Allergy (Intermediate, Verified 03/04/25 13:18) angioedema cetirizine Allergy (Mild, Verified 03/04/25 13:18) Rash famotidine Allergy (Mild, Verified 03/04/25 13:18) Rash linaclotide (Linzess) Allergy (Mild, Verified 03/04/25 13:18) Rash HPI HPI copd: Details: 54-year-old lady, active 30+ pack-year smoker, with underlying history of severe asthma/COPD overlap syndrome on 2-3 L of supplemental oxygen recurrently exacerbated by cocaine use, also severe obstructive sleep apnea with obesity hypoventilation controlled on nocturnal BiPAP, when patient uses it, with [place] [facility] [place] secondary to [place]. Now recovered essentially to baseline. She continuous instilled, albuterol MDI/nebs. Her theophylline was stopped on hospital discharge. [facility] Medical History (Updated 03/04/25 @ 13:44 by Kolby Kessler MD) Supplemental oxygen dependent Obesity hypoventilation syndrome COPD (chronic obstructive pulmonary disease) Recurrent hernia Urinary tract infection due to ESBL Klebsiella Chronic lung disease Chronic lung disease Chronic lung disease BAHMAN (generalized anxiety disorder) Cocaine use disorder Cocaine abuse GERD (gastroesophageal reflux disease) Constipation Non-insulin dependent type 2 diabetes mellitus HENRY (obstructive sleep apnea) Acute exacerbation of chronic obstructive airways disease Asthma with exacerbation Chronic lung disease Hypoxic respiratory failure Nocturnal hypoxemia Diabetes mellitus COPD exacerbation Crack cocaine use Hyperkalemia Metabolic acidosis Leukocytosis Chest discomfort Chronic renal failure, stage 2 (mild) SOB (shortness of breath) Asthma Smoker Rotator cuff tendonitis GERD (gastroesophageal reflux disease) Chronic idiopathic constipation Bustos's esophagus Depression High triglycerides Gastroparesis Carpal tunnel syndrome of right wrist Nausea & vomiting Hernia Acute and chronic respiratory failure, unspecified whether with hypoxia or hypercapnia HTN (hypertension) Obesity (BMI 30-39.9) Knee pain, bilateral Surgical History History of cholecystectomy (~1988) History of carpal tunnel release Hx of tubal ligation History of pubovaginal sling (~2015) History of umbilical hernia repair (~2001) Hx of section History of open reduction and internal fixation (ORIF) procedure History of esophagogastroduodenoscopy (EGD) Family History Father Heart disease HENRY (obstructive sleep apnea) Family history of breast cancer Mother Asthma Emphysema, unspecified Bronchitis Smoker Alcoholism Bone marrow disease Maternal Grandmother Diabetes Social History Household Members: Unknown / Unable to assess Household Members Other:: daughter Housing: House Housing Other:: 3 family house Are you a primary day care attendant to a significant other at home: No Do you presently have visiting nurse or other home services: Yes Unable to assess alcohol history related to: Unknown Alcohol intake: never Comment: refusing socks Patient Tobacco Use Status: Tobacco use Unknown Tobacco use type: Cigarette Cigarette Packs Per Day: 0.5 Cigarettes Per Day: 10 Years Smoked: 40 e-Cigarette/Vaping Use: Currently Using Second Hand Smoke Exposure: Yes Substance Use Type: Crack/Cocaine Advance Directives Date on File: 12/19/23 service: No Current occupational status: disabled 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 Review of Systems Const Denies daytime sleepiness, Denies excessive sweating, Denies fatigue, Denies fever(s), Denies lethargy, Denies malaise, Denies night sweats, Denies snoring and Denies weight loss Eyes Denies blurry vision and Denies itchy eyes ENT Denies nasal congestion, Denies post nasal drip, Denies sinus pain, Denies sinus pressure and Denies other ( Thrush) Card Denies chest pain, Denies pedal edema, Denies dyspnea, Denies orthopnea and Denies paroxysmal nocturnal dyspnea Resp Denies cough, Denies hemoptysis, Denies excessive phlegm production, Denies dyspnea, Denies snoring and Denies wheezing GI Denies abdominal pain and Denies heartburn Musc Denies myalgias, Denies arthralgias and Denies joint swelling Skin/Breast Denies rash Neuro Denies memory loss and Denies seizure-like activity Psych Denies abnormal sleep pattern, Denies anxiety and Denies memory loss Endo Denies excessive sweating, Denies fatigue and Denies heat intolerance José/Lymph Denies easy bruising Aller/Immun Denies itchy eyes, Denies seasonal rhinorrhea and Denies wheezing Physical Exam Vital Signs: Last Vital Signs Pulse 100 03/04/25 13:10 BP 109/58 L 03/04/25 13:10 Pulse Ox 95 03/04/25 13:10 Oxygen Delivery Method Nasal Cannula 03/04/25 13:10 Oxygen Flow Rate 2 03/04/25 13:10 BMI result Body Mass Index 35.5 Const General: no acute distress and alert Nutritional Appearance: not obese Orientation/consciousness: Other orientation findings ( oriented) HEENT Head: Yes atraumatic Eyes General: appearance normal, both eyes and all related structures Sclerae: sclerae normal EOM: EOMs intact bilaterally Neck Neck: Yes supple Lymphatic: no lymphadenopathy noted Resp Effort & Inspection: normal respiratory effort and no use of accessory muscles Auscultation: clear to auscultation bilaterally Cardio Rate: regular rate Rhythm: regular rhythm Heart sounds: no gallops, no murmurs and no rubs Skin General skin exam: other ( warm) Extrem General: No clubbing, No cyanosis and No edema Assessment & Plan Assessment & Plan (1) COPD (chronic obstructive pulmonary disease): Code(s): J44.9 - Chronic obstructive pulmonary disease, unspecified Category: Medical Qualifiers: COPD type: COPD with acute exacerbation Qualified Code(s): J44.1 - Chronic obstructive pulmonary disease with (acute) exacerbation Plan: Baseline controlled on Cymbalta, albuterol MDI, DuoNebs, and theophylline. Continue current regimen. (2) Obesity hypoventilation syndrome: Code(s): E66.2 - Morbid (severe) obesity with alveolar hypoventilation Category: Medical Plan: With suboptimal compliance with BiPAP therapy. Patient has been encouraged to be more compliant with her BiPAP therapy. (3) Supplemental oxygen dependent: Code(s): Z99.81 - Dependence on supplemental oxygen Category: Medical Plan: Continue supplemental oxygen to maintain O2 saturation of 89-92%. Coding Level of Care Code Est Pt Level 4 (05754) Complex EM visit Add On G2211 Diagnoses Chronic obstructive pulmonary disease with acute exacerbation J44.1 COPD type: COPD with acute exacerbation Obesity hypoventilation syndrome E66.2 Supplemental oxygen dependent Z99.81
[2025-03-04 13:10] VITALS: BP 109/58; PULSE 100; O2SAT 95; BMI 35.5
== END 2025-03-04 13:44 | disposition home or self-care (01) ==
PROVIDERS: PCP Nurse Practitioner Family; Visit Provider Internal Medicine Pulmonary Disease
DX: J44.1 Chronic obstructive pulmonary disease with (acute) exacerbation (principal); E66.2 Morbid (severe) obesity with alveolar hypoventilation; Z99.81 Dependence on supplemental oxygen
CPT/HCPCS: 99214

== ENCOUNTER → 2025-03-08 12:49 | Outpatient (REF) | payer OTHER, SELFPAY ==
--- NOTE | 2025-03-08 12:52 | CA_ITS ---
Transthoracic Echocardiogram Patient (Last, First, Middle): Marika Scott L Gender: Female Date of : 1970 Age: 54 Procedure Date: 03/08/2025 Procedure Type: Transthoracic Echocardiogram Location: OP Height: 149.86 cm Weight: 79.83 kg BSA: 1.75 m2 Heart Rate: 93 bpm BP: 110 / 60 mmHg [employer] Supervisor: SB Referring MD: Lourdes Mei [facility]POINTMENT COORDINATORK[facility] Family Social Worker: Ignacio Cintron MD Symptoms: J96.01 - Acute respiratory failure with hypoxia/limited to evaluate LVEF Study Quality: Technically Difficult ECG Rhythm: Sinus Conclusions: - Normal LV EF of 60-65% with impaired relaxation filling pattern Findings Procedure Information The quality of the study was technically difficult. The study quality is limited by lung artifact. Left Ventricle The left ventricle was not well visualized. The visually estimated ejection fraction is between 60-65%. Regional wall motion abnormalities can not be excluded due to suboptimal endocardial definition. Spectral Doppler is indicative of an impaired relaxation filling pattern. Prior Study Comparison Changes noted compared to prior study dated: 10/15/2024. LV EF is within normal range Measurements 2D Linear Measurements IVSd: 1.38 0.6-0.9/0.6-1.0 cm LVIDd: 5.05 3.9-5.3/4.2-5.9 cm LVIDd Index: 2.89 2.4-3.2/2.2-3.1 cm/m2 LVIDs: 3.65 2.0-3.6 cm LVPWd: 1.12 0.7-1.1 cm LV Mass: 313.64 67-162/88-224 g LV Mass Index: 179.23 43-95/49-115 g/m2 LVOT Diam: 2.00 3.0+(-)1.3 cm 2D Systolic Function EF 4C: 60.40 >55% EF 2C: 57.50 >55% EF BiP: 60.50 >55% Mitral Valve MV Pk E: 1.24 MV PK A: 1.41 MV Decel Time: 218.00 E/A: 0.90 E'Lateral: 6.74 E'Medial: 3.26 E/E' Med: 38.00 E/E' Lat: 18.40 PHT: 64.00 MVA PHT: 3.44 Decel Mercer: 5.70 LVOT LVOT Pk Josafat: 1.08 LVOT Mn Josafat: 0.70 LVOT VTI: 0.16 LVOT Pk Grad: 5.00 LVOT Mn Grad: 2.00 LVOT Diam: 2.00 LVOT Area: 3.14 Diastolic Function MV Pk E: 1.24 MV Pk A: 1.41 E/A: 0.90 E'Medial: 3.26 E/E' Med: 38.00 E' Laterial: 6.74 E/E' Lat: 18.40 Right Ventricle TAPSE (mm): 23.50 TVS' Josafat: 14.60 Tricuspid Valve TR Pk Josafat: 2.80 TR Pk Grad: 31.00 RA Press: 8.00 RVSP: 39.00 Updated in Other Vendor System with Status of Final Ignacio Cintron MD electronically signed on 03/09/2025 11:35:06 AM with status of Final
== END ==
LOC: HO.CARD 12:49
PROVIDERS: PCP Nurse Practitioner Family; Visit Provider Nurse Practitioner Family
DX: J96.01 Acute respiratory failure with hypoxia (principal); J44.1 Chronic obstructive pulmonary disease with (acute) exacerbation; I50.9 Heart failure, unspecified; R94.31 Abnormal electrocardiogram [ECG] [EKG]
CPT/HCPCS: 93308

== ENCOUNTER → 2025-03-08 12:52 | Outpatient (BNV) | payer OTHER, SELFPAY | PROVIDERS: PCP Nurse Practitioner Family; Visit Provider Internal Medicine Cardiovascular Disease | DX: J96.01 Acute respiratory failure with hypoxia (principal); I51.89 Other ill-defined heart diseases | CPT/HCPCS: 93308; 93321 ==

== ENCOUNTER 2025-03-18 10:26 | Outpatient (AMB) | payer OTHER, SELFPAY ==
--- NOTE | 2025-03-18 10:41 | MHC.OFFVIS ---
Vital Signs 03/18/25 10:42 BP 122/66 Pulse 58 Pulse Oximetry (%) 97 Intake Visit Reasons: MAT Allergies doxycycline Allergy (Severe, Verified 03/18/25 10:43) Swelling varenicline (From CHANTIX) Allergy (Severe, Verified 03/18/25 10:43) ANAPHYLAXIS azithromycin Allergy (Intermediate, Verified 03/18/25 10:43) Rash barium sulfate Allergy (Intermediate, Verified 03/18/25 10:43) angioedema cetirizine Allergy (Mild, Verified 03/18/25 10:43) Rash famotidine Allergy (Mild, Verified 03/18/25 10:43) Rash linaclotide (Linzess) Allergy (Mild, Verified 03/18/25 10:43) Rash HPI Comments Details: A 54-year-old female presents with daughter for a follow up visit r/t stimulant use disorder, denies active use and reports topiramate helps to minimize cravings. Denies use of opiates, alcohol, and other substances and acknowledges continuing to smoke cigarettes, although has decreased quantity and frequency. During the past several weeks has been coping with exacerbation of COPD. [facility] Medical History (Updated 03/04/25 @ 13:44 by Kolby Kessler MD) Supplemental oxygen dependent Obesity hypoventilation syndrome COPD (chronic obstructive pulmonary disease) Recurrent hernia Urinary tract infection due to ESBL Klebsiella Chronic lung disease Chronic lung disease Chronic lung disease BAHMAN (generalized anxiety disorder) Cocaine use disorder Cocaine abuse GERD (gastroesophageal reflux disease) Constipation Non-insulin dependent type 2 diabetes mellitus HENRY (obstructive sleep apnea) Acute exacerbation of chronic obstructive airways disease Asthma with exacerbation Chronic lung disease Hypoxic respiratory failure Nocturnal hypoxemia Diabetes mellitus COPD exacerbation Crack cocaine use Hyperkalemia Metabolic acidosis Leukocytosis Chest discomfort Chronic renal failure, stage 2 (mild) SOB (shortness of breath) Asthma Smoker Rotator cuff tendonitis GERD (gastroesophageal reflux disease) Chronic idiopathic constipation Bustos's esophagus Depression High triglycerides Gastroparesis Carpal tunnel syndrome of right wrist Nausea & vomiting Hernia Acute and chronic respiratory failure, unspecified whether with hypoxia or hypercapnia HTN (hypertension) Obesity (BMI 30-39.9) Knee pain, bilateral Surgical History History of cholecystectomy (~1988) History of carpal tunnel release Hx of tubal ligation History of pubovaginal sling (~2015) History of umbilical hernia repair (~2001) Hx of section History of open reduction and internal fixation (ORIF) procedure History of esophagogastroduodenoscopy (EGD) Family History Father Heart disease HENRY (obstructive sleep apnea) Family history of breast cancer Mother Asthma Emphysema, unspecified Bronchitis Smoker Alcoholism Bone marrow disease Maternal Grandmother Diabetes Social History Household Members: Unknown / Unable to assess Household Members Other:: daughter Housing: House Housing Other:: 3 family house Are you a primary intensive care ambulance paramedic to a significant other at home: No Do you presently have visiting nurse or other home services: Yes Unable to assess alcohol history related to: Unknown Alcohol intake: never Comment: refusing socks Patient Tobacco Use Status: Tobacco use Unknown Tobacco use type: Cigarette Cigarette Packs Per Day: 0.5 Cigarettes Per Day: 10 Years Smoked: 40 e-Cigarette/Vaping Use: Currently Using Second Hand Smoke Exposure: Yes Substance Use Type: Crack/Cocaine Advance Directives Date on File: 12/19/23 service: No Current occupational status: disabled 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 Physical Exam Vital Signs: Last Vital Signs Pulse 58 03/18/25 10:42 BP 122/66 03/18/25 10:42 Pulse Ox 97 03/18/25 10:42 Assessment & Plan Assessment & Plan (1) Stimulant use disorder: Code(s): F15.90 - Other stimulant use, unspecified, uncomplicated Category: Medical Plan The plan of care is to continue with topiramate 50 mg BID and follow up in 2 months via telehealth or sooner if needed. Encouraged to follow up with [facility] re: stimulant use behavioral therapy program. Medications: Refilled topiramate Take one tablet by mouth twice per day. 50 mg PO BID 60 tabs 2RF 30 days Patient Instructions: - Continue with topiramate as prescribed. - Follow up with [facility] re: stimulant use behavioral therapy program. - Follow up in 2 months via telehealth or sooner if needed. - Call with questions, concerns, or to report side effects/new onset of symptoms to [facility]. - The patient verbalized understanding and agreed with plan of care. Coding Level of Care Code Est Pt Level 3 (99754) Diagnoses Stimulant use disorder F15.90
[2025-03-18 10:42] VITALS: BP 122/66; PULSE 58; O2SAT 97
== END 2025-03-18 11:01 | disposition home or self-care (01) ==
LOC: HO.HCC 10:26
PROVIDERS: PCP Nurse Practitioner Family; Visit Provider Clinical Nurse Specialist Psychiatric/Mental Health
DX: F15.90 Other stimulant use, unspecified, uncomplicated (principal)
CPT/HCPCS: 99213

== ENCOUNTER → 2025-03-18 10:26 | Outpatient (BNVA) | payer OTHER, SELFPAY | PROVIDERS: PCP Nurse Practitioner Family; Visit Provider Clinical Nurse Specialist Psychiatric/Mental Health | DX: F15.90 Other stimulant use, unspecified, uncomplicated (principal); Z79.899 Other long term (current) drug therapy | CPT/HCPCS: 99212 ==

== ENCOUNTER 2025-04-21 12:40 | Outpatient (REF) | payer OTHER, SELFPAY ==
--- NOTE | ~2025-04-21 | XR_ITS ---
EXAMINATION: XR CHEST CLINICAL INFORMATION: J90 - Pleural effusion, not elsewhere classified COMPARISON: Previous chest x-rays most recent January 2025 TECHNIQUE: 2 views of the chest were obtained. FINDINGS: Atelectasis or small infiltrate at the right lung base in the right lower lobe. Subsegmental atelectasis at the left lung base. Slight blunting at the right lateral costophrenic angle questionable for small right pleural effusion. No left pleural effusion. No pneumothorax. Cardiac and mediastinal contours are stable. Old left lateral rib fractures. Degenerative changes of the spine. XR/XR chest 2V IMPRESSION: Atelectasis or small infiltrate in the right lower lobe. Subsegmental atelectasis at the left lung base. ? very small right pleural effusion. No left pleural effusion. Electronically signed by: Irma Sofia MD 04/21/2025 03:58 PM EDT
--- OUTSIDE RECORDS SUMMARY | 2025-05-29 20:00 | XMS_ITS | Clinical Summary ---
Author Organization Unknown Care Team Providers Care Director Web Name Role Phone YANCY YATES, DALJIT TORREZ RN, CHARLES Unavailable Unavailable Payers Payer Name Policy Type Policy Number Effective Date Expira tion Date [facility] ([facility]) - [facility] [id number] MEDICAID [place] [id number] Problems Condition Name Condition Details Condition Category Status Onset Date Resolution Date Last Treatment Date Treating Clinician Comments CHRONIC OBSTRUCTIVE PULMONARY DISEASE W (ACUTE) EXACERBATION Active 2024-07 00:00: 00 ANISOCORIA Active 2024-07 00:00: 00 ATELECTASIS Active 2024-07 00:00: 00 HEART FAILURE, UNSPECIFIED Active 2024-07 00:00: 00 COCAINE ABUSE, UNCOMPLICATE D Active 2024-07 0 00:00: 00 DEPRESSION, UNSPECIFIED Active 2024-07 0 00:00: 00 TYPE 2 DIABETES MELLITUS WITHOUT COMPLICATION S Active 2024-07 00:00: 00 GASTRO-ESOPH AGEAL REFLUX DISEASE WITHOUT ESOPHAGITIS Active 2024-07 00:00: 00 ESSENTIAL (PRIMARY) HYPERTENSION Active 2024-07 00:00: 00 Allergies, Adverse Reactions, Alerts Allergy Name Allergy Type Status Severity Reaction(s) Onset Date Inactive Date Treating Clinician Comments NKA Propensity to adverse reactions Active 2025-03 19:03:2 6 Medications Ordered Medication Name Filled Medication Name Start Date Stop Date Current Medication? Ordering Clinician Indication Dosage Frequency Signature (SIG) Comments Components acetaminoph en 325 mg tablet 01-08 00:00: 00 03-30 23:59 :00 No [id number] 2 tablet EVERY 12 HOURS 2 tablet EVERY 12 HOURS (route: oral) Med Classific ation: Analgesic , Anti-infl ammatory or Antipyret ic albuterol sulfate 2.5 mg/3 mL (0.083 %) solution for nebulizatio n 01-08 00:00: 00 03-30 23:59 :00 No [id number] 3 mL EVERY 4 HOURS 3 mL EVERY 4 HOURS (route: inhalation ) Med Classific ation: Respirato ry Therapy Agents aspirin 325 mg tablet 01-08 00:00: 00 03-30 23:59 :00 No [id number] 2 tablet EVERY 6 HOURS 2 tablet EVERY 6 HOURS (route: oral) Med Classific ation: Analgesic , Anti-infl ammatory or Antipyret ic Aspirin Childrens 81 mg chewable tablet 01-08 00:00: 00 03-30 23:59 :00 No [id number] 1 tablet DAILY 1 tablet DAILY (route: oral) Med Classific ation: Hematolog ical Agents Calcium 500 With D 500 mg-10 mcg (400 unit) tablet 01-08 00:00: 00 03-30 23:59 :00 No [id number] 1 tablet DAILY 1 tablet DAILY (route: oral) Med Classific ation: Electroly te Balance-N utritiona l Products dextrose 40 % oral gel 01-08 00:00: 00 03-30 23:59 :00 No [id number] Per instruc tions DIRECTED Per instructio ns DIRECTED (route: oral) Med Classific ation: Endocrine fexofenadin e 180 mg tablet 01-08 00:00: 00 03-30 23:59 :00 No [id number] 1 tablet DAILY 1 tablet DAILY (route: oral) Med Classific ation: Respirato ry Therapy Agents furosemide 20 mg tablet 01-08 00:00: 00 03-30 23:59 :00 No [id number] 1 tablet DAILY 1 tablet DAILY (route: oral) Med Classific ation: Cardiovas cular Therapy Agents gabapentin 800 mg tablet 01-08 00:00: 00 03-30 23:59 :00 No [id number] 1 tablet 4 TIMES DAILY 1 tablet 4 TIMES DAILY (route: oral) Med Classific ation: Central Nervous System Agents glucose 4 gram chewable tablet 01-08 00:00: 00 03-30 23:59 :00 No [id number] FOR HYPOGLYCEMI A 4 tablet DIRECTED 4 tablet DIRECTED (route: oral) Med Classific ation: Endocrine ibuprofen 800 mg tablet 01-08 00:00: 00 03-30 23:59 :00 No [id number] FOR PAIN 1 tablet 2 TIMES DAILY 1 tablet 2 TIMES DAILY (route: oral) Med Classific ation: Analgesic , Anti-infl ammatory or Antipyret ic insulin glargine (U-100) 100 unit/mL (3 mL) subcutaneou s pen 01-08 00:00: 00 03-30 23:59 :00 No [id number] 12 unit BEDTIME 12 unit BEDTIME (route: subcutaneo us) Med Classific ation: Endocrine losartan 50 mg tablet 01-08 00:00: 00 03-30 23:59 :00 No [id number] 1 tablet DAILY 1 tablet DAILY (route: oral) Med Classific ation: Cardiovas cular Therapy Agents quetiapine 50 mg tablet 01-08 00:00: 00 03-30 23:59 :00 No [id number] 1 tablet 2 TIMES DAILY 1 tablet 2 TIMES DAILY (route: oral) Med Classific ation: Central Nervous System Agents sertraline 100 mg tablet 01-08 00:00: 00 03-30 23:59 :00 No [id number] 1 tablet DAILY 1 tablet DAILY (route: oral) Med Classific ation: Central Nervous System Agents sertraline 25 mg tablet 01-08 00:00: 00 03-30 23:59 :00 No [id number] 1 tablet DAILY 1 tablet DAILY (route: oral) Med Classific ation: Central Nervous System Agents Spiriva Respimat 2.5 mcg/actuati on solution for inhalation 01-08 00:00: 00 03-30 23:59 :00 No [id number] 2 puff DAILY 2 puff DAILY (route: inhalation ) Med Classific ation: Respirato ry Therapy Agents theophyllin e ER 400 mg tablet,exte nded release 24 hr 01-08 00:00: 00 03-30 23:59 :00 No [id number] 1 tablet 2 TIMES DAILY 1 tablet 2 TIMES DAILY (route: oral) Med Classific ation: Respirato ry Therapy Agents tizanidine 4 mg tablet 01-08 00:00: 00 03-30 23:59 :00 No [id number] FOR ANXIETY 1 tablet 2 TIMES DAILY 1 tablet 2 TIMES DAILY (route: oral) Med Classific ation: Locomotor System Ventolin HFA 90 mcg/actuati on aerosol inhaler 01-08 00:00: 00 03-30 23:59 :00 No [id number] FOR SOB / WHEEZING 2 puff EVERY 6 HOURS 2 puff EVERY 6 HOURS (route: inhalation ) Med Classific ation: Respirato ry Therapy Agents oxygen gas for inhalation 01-12 00:00: 00 03-30 23:59 :00 No [id number] HYPOXIA 3 Liter O2 - CONTINUOUS 3 Liter O2 - CONTINUOUS (route: inhalation ) Alternate Route: O2 - NASAL CANNULA. Med Classific ation: Medical Supplies and Durable Medical Equipment (DME) prednisone 20 mg tablet 01-15 00:00: 00 03-30 23:59 :00 No [id number] 2 tablet DAILY 2 tablet DAILY (route: oral) Med Classific ation: Endocrine prednisone 20 mg tablet 01-20 00:00: 00 03-30 23:59 :00 No [id number] 1 tablet DAILY 1 tablet DAILY (route: oral) Med Classific ation: Endocrine albuterol sulfate 2.5 mg/3 mL (0.083 %) solution for nebulizatio n 2024-07 0 00:00: 00 04-15 00:00 :00 No [id number] 3 mL EVERY 4 HOURS 3 mL EVERY 4 HOURS (route: inhalation ) Med Classific ation: Respirato ry Therapy Agents aspirin 81 mg tablet 2024-07 0- 00:00: 00 04-15 00:00 :00 No [id number] 1 tablet DAILY 1 tablet DAILY (route: oral) Med Classific ation: Hematolog ical Agents atorvastati n 40 mg tablet 2024-07 00:00: 00 04-15 00:00 :00 No [id number] 1 tablet DAILY 1 tablet DAILY (route: oral) Med Classific ation: Cardiovas cular Therapy Agents azithromyci n 250 mg tablet 2024-07 00:00: 00 04-15 00:00 :00 No [id number] 1 tablet DAILY 1 tablet DAILY (route: oral) Med Classific ation: Anti-Infe ctive Agents Calcium 500 + D 500 mg-10 mcg (400 unit) tablet 2024-07 0 00:00: 00 04-15 00:00 :00 No [id number] 1 tablet DAILY 1 tablet DAILY (route: oral) Med Classific ation: Electroly te Balance-N utritiona l Products esomeprazol e magnesium 40 mg capsule,del ayed release 2024-07 00:00: 00 04-15 00:00 :00 No [id number] 1 capsule DAILY 1 capsule DAILY (route: oral) Med Classific ation: Gastroint estinal Therapy Agents gabapentin 800 mg tablet 2024-07 00:00: 00 04-15 00:00 :00 No [id number] 1 tablet 4 TIMES DAILY 1 tablet 4 TIMES DAILY (route: oral) Med Classific ation: Central Nervous System Agents glipizide 5 mg tablet 2024-07 00:00: 00 04-15 00:00 :00 No [id number] 1 tablet DAILY 1 tablet DAILY (route: oral) Med Classific ation: Endocrine guaifenesin 100 mg/5 mL oral liquid 2024-07 00:00: 00 04-15 00:00 :00 No [id number] 5 mL EVERY 4 HOURS 5 mL EVERY 4 HOURS (route: oral) Med Classific ation: Respirato ry Therapy Agents insulin glargine (U-100) 100 unit/mL (3 mL) subcutaneou s pen 2024-07 0 00:00: 00 04-15 23:59 :00 No [id number] 16 unit BEDTIME 16 unit BEDTIME (route: subcutaneo us) Med Classific ation: Endocrine lorazepam 0.5 mg tablet 2024-07 00:00: 00 Yes [id number] 1 tablet 2 TIMES DAILY 1 tablet 2 TIMES DAILY (route: oral) Med Classific ation: Central Nervous System Agents losartan 25 mg tablet 2024-07 00:00: 00 04-15 00:00 :00 No [id number] 1 tablet DAILY 1 tablet DAILY (route: oral) Med Classific ation: Cardiovas cular Therapy Agents nicotine 21 mg/24 hr daily transdermal patch 2024-07 00:00: 00 04-15 00:00 :00 No [id number] 1 patch, transde rmal 24 hours DAILY 1 patch, transderma l 24 hours DAILY (route: transderma l) Med Classific ation: Chemical Dependenc y, Agents to Treat Pain Relief (acetaminop hen) 650 mg tablet,exte nded release 2024-07 00:00: 00 04-15 00:00 :00 No [id number] 1 tablet 2 TIMES DAILY 1 tablet 2 TIMES DAILY (route: oral) Med Classific ation: Analgesic , Anti-infl ammatory or Antipyret ic prednisone 10 mg tablet 2024-07 00:00: 00 Yes [id number] Per instruc tions DAILY Per instructio ns DAILY (route: oral) Med Classific ation: Endocrine sertraline 100 mg tablet 2024-07 00:00: 00 04-15 00:00 :00 No [id number] 1 tablet 3 TIMES DAILY 1 tablet 3 TIMES DAILY (route: oral) Med Classific ation: Central Nervous System Agents Stiolto Respimat 2.5 mcg-2.5 mcg/actuati on solution for inhalation 2024-07 00:00: 00 04-15 00:00 :00 No [id number] 2 puff DAILY 2 puff DAILY (route: inhalation ) Med Classific ation: Respirato ry Therapy Agents tizanidine 4 mg tablet 2024-07 00:00: 00 04-15 00:00 :00 No [id number] 1 tablet 2 TIMES DAILY 1 tablet 2 TIMES DAILY (route: oral) Med Classific ation: Locomotor System topiramate 50 mg tablet 2024-07 0 00:00: 00 04-15 00:00 :00 No [id number] 1 tablet 2 TIMES DAILY 1 tablet 2 TIMES DAILY (route: oral) Med Classific ation: Central Nervous System Agents Ventolin HFA 90 mcg/actuati on aerosol inhaler 2024-07 0 00:00: 00 04-15 00:00 :00 No [id number] 2 puff EVERY 6 HOURS 2 puff EVERY 6 HOURS (route: inhalation ) Med Classific ation: Respirato ry Therapy Agents acetaminoph en ER 650 mg tablet,exte nded release 2024-07 00:00: 00 Yes [id number] 650 mg DIRECTED 650 mg DIRECTED (route: oral) Med Classific ation: Analgesic , Anti-infl ammatory or Antipyret ic albuterol sulfate 2.5 mg/3 mL (0.083 %) solution for nebulizatio n 2024-07 00:00: 00 Yes [id number] 3 mL EVERY 4 HOURS 3 mL EVERY 4 HOURS (route: inhalation ) Med Classific ation: Respirato ry Therapy Agents atorvastati n 40 mg tablet 2024-07 00:00: 00 Yes [id number] 1 tablet BEDTIME 1 tablet BEDTIME (route: oral) Med Classific ation: Cardiovas cular Therapy Agents azithromyci n 250 mg tablet 2024-07 00:00: 00 Yes [id number] 1 tablet EVERY AM 1 tablet EVERY AM (route: oral) Med Classific ation: Anti-Infe ctive Agents Calcium 500 + D 500 mg-10 mcg (400 unit) tablet 2024-07 00:00: 00 Yes [id number] 1 tablet EVERY AM 1 tablet EVERY AM (route: oral) Med Classific ation: Electroly te Balance-N utritiona l Products Eliquis 5 mg tablet 2024-07 00:00: 00 04-19 23:59 :00 No [id number] 10 mg 2 TIMES DAILY 10 mg 2 TIMES DAILY (route: oral) Med Classific ation: Hematolog ical Agents esomeprazol e magnesium 40 mg capsule,del ayed release 2024-07 00:00: 00 Yes [id number] 1 capsule EVERY AM 1 capsule EVERY AM (route: oral) Med Classific ation: Gastroint estinal Therapy Agents furosemide 20 mg tablet 2024-0716 00:00: 00 Yes [id number] 20 mg EVERY AM 20 mg EVERY AM (route: oral) Med Classific ation: Cardiovas cular Therapy Agents gabapentin 800 mg tablet 2024-07 00:00: 00 Yes [id number] 1 tablet 4 TIMES DAILY 1 tablet 4 TIMES DAILY (route: oral) Med Classific ation: Central Nervous System Agents guaifenesin 100 mg/5 mL oral liquid 2024-07 00:00: 00 Yes [id number] 5 mL EVERY 4 HOURS 5 mL EVERY 4 HOURS (route: oral) Med Classific ation: Respirato ry Therapy Agents insulin glargine (U-100) 100 unit/mL (3 mL) subcutaneou s pen 2024-07 00:00: 00 Yes [id number] 16 unit BEDTIME 16 unit BEDTIME (route: subcutaneo us) Med Classific ation: Endocrine insulin lispro (U-100) 100 unit/mL subcutaneou s pen 2024-07 00:00: 00 Yes [id number] Per instruc tions DIRECTED Per instructio ns DIRECTED (route: subcutaneo us) Med Classific ation: Endocrine Macrobid 100 mg capsule 2024-07 00:00: 00 Yes [id number] 100 mg 2 TIMES DAILY 100 mg 2 TIMES DAILY (route: oral) Med Classific ation: Genitouri nary Therapy nicotine 21 mg/24 hr daily transdermal patch 2024-07 00:00: 00 Yes [id number] 1 patch, transde rmal 24 hours EVERY AM 1 patch, transderma l 24 hours EVERY AM (route: transderma l) Med Classific ation: Chemical Dependenc y, Agents to Treat quetiapine 100 mg tablet 2024-07 00:00: 00 Yes [id number] 100 mg 3 TIMES DAILY 100 mg 3 TIMES DAILY (route: oral) Med Classific ation: Central Nervous System Agents sertraline 100 mg tablet 2024-0716 00:00: 00 Yes [id number] 100 mg EVERY AM 100 mg EVERY AM (route: oral) Med Classific ation: Central Nervous System Agents Stiolto Respimat 2.5 mcg-2.5 mcg/actuati on solution for inhalation 2024-07 00:00: 00 Yes [id number] 2 puff EVERY AM 2 puff EVERY AM (route: inhalation ) Med Classific ation: Respirato ry Therapy Agents tizanidine 4 mg tablet 2024-07 00:00: 00 Yes [id number] 1 tablet 2 TIMES DAILY 1 tablet 2 TIMES DAILY (route: oral) Med Classific ation: Locomotor System topiramate 50 mg tablet 2024-07 00:00: 00 Yes [id number] 1 tablet 2 TIMES DAILY 1 tablet 2 TIMES DAILY (route: oral) Med Classific ation: Central Nervous System Agents Ventolin HFA 90 mcg/actuati on aerosol inhaler 2024-07 00:00: 00 Yes [id number] 2 puff 4 TIMES DAILY 2 puff 4 TIMES DAILY (route: inhalation ) Med Classific ation: Respirato ry Therapy Agents Vital Signs Vital Name Observation Time Observation Value Commen ts Temperature 2025-04-20 10:31:00.000 97 [degF] Temperature 2025-04-03 19:03:00.000 97.7 [degF] BMI (%) 2025-04-03 18:20:37.000 26 kg/m2 Height 2025-04-03 18:14:52.000 69 [in_us] Pulse 2025-04-20 10:31:00.000 98 /min Pulse 2025-04-03 19:03:00.000 78 /min O2 Saturation (%) 2025-04-20 10:32:00.000 94 % Respirations 2025-04-20 10:31:00.000 22 /min Respirations 2025-04-03 19:03:00.000 18 /min Weight (lbs) 2025-04-03 18:20:37.000 177 [lb_av] Systolic Blood Pressure 2025-04-20 10:31:00.000 112 mm [Hg] Systolic Blood Pressure 2025-04-03 19:03:00.000 118 mm [Hg] Diastolic Blood Pressure 2025-04-20 10:31:00.000 60 mm [Hg] Diastolic Blood Pressure 2025-04-03 19:03:00.000 64 mm [Hg] Plan of Treatment Planned Activity Planned Date Details Comments Future Scheduled Test SKILLED NU RSE TO EVALUATE PATIENT, IDENTIFY PRIMARY AND CO-MORBID CONDITIONS CODED PER CODING GUIDELINES, AND DEVELOP PATIENT SPECIFIC PLAN OF CARE THAT INCLUDES PATIENT GOAL FOR HOME HEALTH. [code = SKILLED NURSE TO EVALUATE PATIENT, IDENTIFY PRIMARY AND CO-MORBID CONDITIONS CODED PER CODING GUIDELINES, AND DEVELOP PATIENT SPECIFIC PLAN OF CARE THAT INCLUDES PATIENT GOAL FOR HOME HEALTH.] Future Scheduled Test SKILLED NU RSE WILL MAINTAIN SITUATIONAL AWARENESS FOR SAFETY AND WILL NOTIFY CLINICAL CLAIM SPECIALIST AND PHYSICIAN/PROVIDER WITH ANY CHANGE IN CONDITION. [code = SKILLED NURSE WILL MAINTAIN SITUATIONAL AWARENESS FOR SAFETY AND WILL NOTIFY CLINICAL CLAIM SPECIALIST AND PHYSICIAN/PROVIDER WITH ANY CHANGE IN CONDITION.] Future Scheduled Test SKILLED NU RSE TO ASSESS PATIENT S PSYCHOSOCIAL STATUS TO IDENTIFY POTENTIAL ISSUES THAT MAY COMPLICATE THE PROVISION OF THE PLAN OF CARE INCLUDING THE PATIENT S ABILITY TO ACCESS COMMUNITY RESOURCES AND PSYCHOSOCIAL SUPPORT SERVICES. [code = SKILLED NURSE TO ASSESS PATIENT S PSYCHOSOCIAL STATUS TO IDENTIFY POTENTIAL ISSUES THAT MAY COMPLICATE THE PROVISION OF THE PLAN OF CARE INCLUDING THE PATIENT S ABILITY TO ACCESS COMMUNITY RESOURCES AND PSYCHOSOCIAL SUPPORT SERVICES.] Future Scheduled Test SKILLED NU RSE TO O/A OF PATIENTS MENTAL/BEHAVIORAL STATUS, ASSESS VITAL SIGNS EACH VISIT ALLOW 2 PRNS FOR MEDICATION MANAGEMENT. [code = SKILLED NURSE TO O/A OF PATIENTS MENTAL/BEHAVIORAL STATUS, ASSESS VITAL SIGNS EACH VISIT ALLOW 2 PRNS FOR MEDICATION MANAGEMENT.] Future Scheduled Test SKILLED NU RSE TO ADMINISTER MEDICATIONS EACH VISIT AND PRE-POUR MEDICATIONS EACH VISIT PER MEDICATION LIST. [code = SKILLED NURSE TO ADMINISTER MEDICATIONS EACH VISIT AND PRE-POUR MEDICATIONS EACH VISIT PER MEDICATION LIST.] Future Scheduled Test SKILLED NU RSE FOR O/A AND SKILLED TEACHING RELATED TO MANAGEMENT OF DEPRESSIVE SYMPTOMS AND/OR DEPRESSION. SN TO REPORT SIGNIFICANT CHANGE IN DEPRESSIVE SYMPTOMS TO CLINICAL PROVIDER FOR EARLY INTERVENTION. [code = SKILLED NURSE FOR O/A AND SKILLED TEACHING RELATED TO MANAGEMENT OF DEPRESSIVE SYMPTOMS AND/OR DEPRESSION. SN TO REPORT SIGNIFICANT CHANGE IN DEPRESSIVE SYMPTOMS TO CLINICAL PROVIDER FOR EARLY INTERVENTION.] Future Scheduled Test SKILLED NU RSE FOR O/A AND SKILLED TEACHING OF COPING SKILLS TO MANAGE ANXIETY AND MAINTAIN SAFETY. [code = SKILLED NURSE FOR O/A AND SKILLED TEACHING OF COPING SKILLS TO MANAGE ANXIETY AND MAINTAIN SAFETY.] Future Scheduled Test OXYGEN VIA NASAL CANNULA) @ 2-4 LITERS CONTINUOUS. SKILLED NURSE FOR O/A AND SKILLED TEACHING OF SAFE OXYGEN USE IN THE HOME. [code = OXYGEN VIA NASAL CANNULA) @ 2-4 LITERS CONTINUOUS. SKILLED NURSE FOR O/A AND SKILLED TEACHING OF SAFE OXYGEN USE IN THE HOME.] Future Scheduled Test SKILLED NU RSE FOR O/A AND TEACHING OF ENDOCRINE SYSTEM TO IDENTIFY CHANGES ASSOCIATED WITH EXACERBATION OF DIABETES FOR EARLY INTERVENTION OF COMPLICATIONS. [code = SKILLED NURSE FOR O/A AND TEACHING OF ENDOCRINE SYSTEM TO IDENTIFY CHANGES ASSOCIATED WITH EXACERBATION OF DIABETES FOR EARLY INTERVENTION OF COMPLICATIONS.] Future Scheduled Test SKILLED NU RSE FOR O/A AND TEACHING OF DIABETIC MANAGEMENT INCLUDING BLOOD SUGAR MONITORING/USE OF GLUCOMETER, DIABETIC DIET, LOWER EXTREMITY SKIN INSPECTION, PROPER SKIN/FOOT CARE, AND SIGNS AND SYMPTOMS HYPO/HYPERGLYCEMIA TO REPORT. [code = SKILLED NURSE FOR O/A AND TEACHING OF DIABETIC MANAGEMENT INCLUDING BLOOD SUGAR MONITORING/USE OF GLUCOMETER, DIABETIC DIET, LOWER EXTREMITY SKIN INSPECTION, PROPER SKIN/FOOT CARE, AND SIGNS AND SYMPTOMS HYPO/HYPERGLYCEMIA TO REPORT.] Future Scheduled Test SKILLED NU RSE TO OBTAIN BLOOD SUGAR PRN FOR SIGNS AND SYMPTOMS OF HYPO/HYPERGLYCEMIA. IF OBTAINED BY PATIENT/CAREGIVER PRIOR TO VISIT AND PATIENT IS NOT SYMPTOMATIC, SKILLED NURSE TO RECORD READING FROM PATIENT LOG. [code = SKILLED NURSE TO OBTAIN BLOOD SUGAR PRN FOR SIGNS AND SYMPTOMS OF HYPO/HYPERGLYCEMIA. IF OBTAINED BY PATIENT/CAREGIVER PRIOR TO VISIT AND PATIENT IS NOT SYMPTOMATIC, SKILLED NURSE TO RECORD READING FROM PATIENT LOG.] Future Scheduled Test SKILLED NU RSE FOR O/A OF RESPIRATORY SYSTEM TO IDENTIFY CHANGES ASSOCIATED WITH EXACERBATION AND TO PROVIDE SKILLED TEACHING ON MANAGEMENT OF RESPIRATORY DISEASE PROCESS. [code = SKILLED NURSE FOR O/A OF RESPIRATORY SYSTEM TO IDENTIFY CHANGES ASSOCIATED WITH EXACERBATION AND TO PROVIDE SKILLED TEACHING ON MANAGEMENT OF RESPIRATORY DISEASE PROCESS.] Future Scheduled Test SKILLED NU RSE FOR O/A OF GENERAL HEALTH STATUS OF PAIN, CARDIAC, RESPIRATORY, GASTROINTESTINAL, GENITOURINARY, SKIN, NEUROLOGIC, ENDOCRINE SYSTEMS TO IDENTIFY CHANGES ASSOCIATED WITH EXACERBATION FOR EARLY INTERVENTION OF COMPLICATIONS [code = SKILLED NURSE FOR O/A OF GENERAL HEALTH STATUS OF PAIN, CARDIAC, RESPIRATORY, GASTROINTESTINAL, GENITOURINARY, SKIN, NEUROLOGIC, ENDOCRINE SYSTEMS TO IDENTIFY CHANGES ASSOCIATED WITH EXACERBATION FOR EARLY INTERVENTION OF COMPLICATIONS] Future Scheduled Test PHYSICAL T HERAPIST TO EVALUATE PATIENT FOR MUSCLE STRENGTHING [code = PHYSICAL THERAPIST TO EVALUATE PATIENT FOR MUSCLE STRENGTHING] Future Scheduled Test SKILLED NU RSE TO PROVIDE TEACHING ON SIGNS AND SYMPTOMS AND MANAGEMENT OF HYPERTENSION. [code = SKILLED NURSE TO PROVIDE TEACHING ON SIGNS AND SYMPTOMS AND MANAGEMENT OF HYPERTENSION.] Goal Patient Goal - NO MORE HOSPI TALIZATION Goal Provider Goal - A PLAN OF CARE WILL BE ESTABLISHED THAT MEETS PATIENT'S ALF NEEDS AND INCLUDES PATIENT GOAL FOR HOME HEALTH. Goal Provider Goal - PATIENT WILL REMAIN SAFE IN THE COMMUNITY AND WILL BE FREE OF DANGER TO SELF AND OTHERS THROUGHOUT THE CERTIFICATION PERIOD. Goal Provider Goal - PSYCHOSOCIAL NEEDS WILL BE IDENTIFIED AND PLAN IMPLEMENTED TO MINIMIZE RISK THROUGHOUT CERTIFICATION PERIOD. Goal Provider Goal - ALTERED MENTAL/BEHAVIORAL STATUS WILL BE IDENTIFIED PROMPTLY AND INTERVENTION INITIATED QUICKLY TO MINIMIZE ASSOCIATED RISKS THROUGHOUT CERTIFICATION PERIOD. Goal Provider Goal - PATIENT WILL COMPLY WITH MEDICATION WHEN SKILLED NURSE ADMINISTERS AND PRE-POURS MEDICATION THROUGHOUT CERTIFICATION PERIOD. Goal Provider Goal - PATIENT WILL REMAIN SAFE WITHOUT DECOMPENSATION IN DEPRESSIVE CONDITION, WHILE MAINTAINING OPTIMAL LEVEL OF MENTAL HEALTH AND WELL BEING THROUGHOUT CERTIFICATION PERIOD. Goal Provider Goal - PATIENT WILL BE ABLE TO PERFORM DAILY FUNCTIONS AND HAVE OPTIMAL IMPROVEMENT IN LEVEL OF ANXIETY THROUGHOUT CERTIFICATION PERIOD. Goal Provider Goal - PATIENT/CAREGIVER WILL VERBALIZE/DEMONSTRATE UNDERSTANDING OF SAFE OXYGEN USE IN THE HOME THROUGHOUT THE EPISODE. Goal Provider Goal - PATIENT/CAREGIVER WILL VERBALIZE SIGNS AND SYMPTOMS OF EXACERBATION OF DIABETES TO REPORT TO NURSE/PHYSICIAN THROUGHOUT THE CERTIFICATION PERIOD. Goal Provider Goal - PATIENT/CAREGIVER WILL VERBALIZE/DEMONSTRATE KNOWLEDGE OF DIABETIC MANAGEMENT. CHANGES IN DIABETIC STATUS WILL BE IDENTIFIED AND REPORTED TO PHYSICIAN FOR PROMPT INTERVENTION THROUGHOUT THE CERTIFICATION PERIOD. Goal Provider Goal - BLOOD SUGAR READING WILL BE OBTAINED ORDERED THROUGHOUT CERTIFICATION PERIOD. Goal Provider Goal - PATIENT/CAREGIVER WILL VERBALIZE/DEMONSTRATE MANAGEMENT OF RESPIRATORY DISEASE PROCESS. CHANGES IN RESPIRATORY STATUS WILL BE IDENTIFIED AND REPORTED TO PHYSICIAN FOR PROMPT INTERVENTION THROUGHOUT THE CERTIFICATION PERIOD. Goal Provider Goal - CHANGE IN GENERAL HEALTH STATUS WILL BE IDENTIFIED AND REPORTED TO PHYSICIAN FOR PROMPT INTERVENTION TO MINIMIZE ASSOCIATED RISKS THROUGHOUT CERTIFICATION PERIOD. Goal Provider Goal - A PHYSICAL THERAPY EVALUATION TO BE COMPLETED WITH RECOMMENDATIONS AND/OR WRITTEN PLAN OF TREATMENT ESTABLISHED FOR PHYSICIAN S SIGNATURE. Goal Provider Goal - PATIENT/CAREGIVER WILL VERBALIZE SIGNS AND SYMPTOMS OF HYPERTENSION AND WILL BE ABLE TO DEMONSTRATE ABILITY TO MANAGE EXACERBATION BY END OF THE EPISODE. Encounters Start Date/Time End Date/Time Encounter Type Admission Type Attending Clinicians Care Facility Care Department Encounter ID Discharge Date Discharge Status Discharge Condition Discharge Reason Percent Goals Met 2025-04-01 00:00:00 2025-05-30 00:00:00 Outpatient [facility] [id number] 11.63
== END 2025-04-21 12:41 | disposition home or self-care (01) ==
LOC: HO.HMGCX 12:40
PROVIDERS: PCP Nurse Practitioner Family; Visit Provider Nurse Practitioner Family
DX: J90 Pleural effusion, not elsewhere classified (principal); C34.90 Malignant neoplasm of unspecified part of unspecified bronchus or lung; R79.89 Other specified abnormal findings of blood chemistry; I50.9 Heart failure, unspecified
CPT/HCPCS: 71046; 96127; 99212

== ENCOUNTER 2025-04-21 12:40 | Outpatient (AMB) | payer OTHER, SELFPAY ==
--- NOTE | 2025-04-21 12:47 | A.OFFPC_ITS ---
Vital Signs 04/21/25 12:50 Height 4 ft 11 in Weight 185 lb BMI 37.4 BP 110/62 Blood Pressure Location Lt brachial Position Sitting Respiration 16 Pulse 90 Pulse Source Pulse Oximeter Pulse Oximetry (%) 96 Oxygen Delivery Method Nasal Cannula Intake Visit Reasons: Discharge f/u Scientific Helper Required: No Accompanied by: Daughter Allergies doxycycline Allergy (Severe, Verified 04/21/25 12:55) Swelling varenicline (From CHANTIX) Allergy (Severe, Verified 04/21/25 12:55) ANAPHYLAXIS azithromycin Allergy (Intermediate, Verified 04/21/25 12:55) Rash barium sulfate Allergy (Intermediate, Verified 04/21/25 12:55) angioedema cetirizine Allergy (Mild, Verified 04/21/25 12:55) Rash famotidine Allergy (Mild, Verified 04/21/25 12:55) Rash linaclotide (Linzess) Allergy (Mild, Verified 04/21/25 12:55) Rash Tobacco use date assessed: 04/21/25 Dental Screening Dental Screen Date: 04/21/25 Did you have a dental visit in the last 12 months?: No Did you have a dental problem in the last 6 months where you did not have access to dental care?: No Was dental information given to patient?: Patient has dentist HPI Discharge f/u HPI Details Chief Complaint The patient presents for a follow-up after hospital discharge, with concerns about her lung condition and overall health management. History of Present Illness The patient is a 54-year-old female presenting with a follow-up after hospital discharge. She has a history of lung adenocarcinoma, stage 4A, with malignant pleural effusions, which was diagnosed during a recent emergency room visit. She has been hospitalized multiple times, including stays in the ICU, and has undergone procedures such as the placement of a right chest tube for pleural effusion management. The patient has a significant history of Chronic Obstructive Pulmonary Disease (COPD) and heart failure with reduced ejection fraction, contributing to her respiratory challenges. She has experienced respiratory failure and has been placed on oxygen therapy at 3 liters, with additional support from IVAPs for nighttime use. Her medical history is complicated by polysubstance abuse, including opiate use, which has impacted her overall health management. She has also been treated for an ESBL urinary tract infection with a course of antibiotics, including mirtpenam and microbid. Recently, there was a concern for a possible stroke, leading to a change in her anticoagulation therapy from aspirin to Plavix, and subsequently to Lovenox after a pulmonary embolism was identified. A CTA of the head and neck ruled out a stroke, and further follow-up with neurology was planned, including a TTE with bubble study. The patient is also diabetic and is on Lantus for management. She has been placed on a prednisone taper, which may affect her blood glucose levels. She has a wound on her coccyx, for which she has been instructed to cleanse with a pH-balanced cleanser and apply a triad dressing daily. Socially, her daughter has become her primary caregiver, assisting with her medical needs and helping her avoid substances like cigarettes and cocaine. Social History - Family status: Patient's daughter is h er primary caregiver, assisting with medical needs and substance avoidance. - Substance use: History of polysubstanc e abuse, including opiates, cigarettes, and cocaine. Health Maintenance Review of Systems - Respiratory: Reports increased dyspnea today, concerns about pleural effusion recurrence. denies any cp, fevers, chills, LOC, seizure activity, falling, CARPIO, blurred vision Physical Exam General: Cooperative, comfortable, no acute distress and well developed, in wheelchair Orientation: Patient oriented x3 Limitations: No limitations Head: Normal to inspection Ears: Hearing grossly normal bilaterally Nose: Normal external nose present Face and sinus: Normal facial exam Eyes: Appearance normal, both eyes and all related structures Neck: Normal visual inspection and Yes full ROM Respiratory: Slight increased shortness of breath reported by patient. Lungs were coarse, diminishing at the bases with scattered faint wheezes throughout. Cardiovascular: Regular rate and rhythm. Normal S1 and S2 GI: Normal to inspection. Soft to palpation and nontender Skin: No rashes or lesions noted. No wounds noted to buttocks, upper buttocks. ecchymosis noted to BUE Neuro: Patient oriented x3 Extremities: Normal to inspection Results - CTA of head and neck: No stroke, prese nce of pulmonary embolism -following up with labs today and chest XR Plan 1. Lung Adenocarcinoma, Stage 4A The patient is to follow up closely with oncology for management of her stage 4A lung adenocarcinoma. She will continue to receive supportive care, including oxygen therapy and monitoring for pleural effusion recurrence. 2. Malignant Pleural Effusion The patient has been managed with a right chest tube placement, which has since been removed. She is to continue monitoring for symptoms of recurrence and will have a chest x-ray today to assess her current status. 3. Chronic Obstructive Pulmonary Disease (Copd) The patient is on a prednisone taper and continues to use oxygen therapy at 3 liters. She is advised to avoid smoking and follow up with her medical liaison. 4. Polysubstance Abuse The patient's daughter is assisting in managing her substance use, helping her avoid cigarettes and cocaine. 5. Heart Failure With Reduced Ejection F raction The patient is to continue home Lasix therapy and monitor her fluid status. 6. Respiratory Failure The patient remains on oxygen therapy and is stable at 3 liters. 7. Extended-Spectrum Beta-Lactamase (Esb l) Urinary Tract Infection The patient completed a course of antibiotics and is to monitor for any recurrent symptoms. 8. Pulmonary Embolism The patient is on anticoagulation therapy with Xarelto, following the identification of a pulmonary embolism. 9. Diabetes Mellitus The patient is on Lantus and should monitor her blood glucose levels, especially while on prednisone. 10. Coccyx Wound The patient is instructed to cleanse the wound with a pH-balanced cleanser and apply a triad dressing daily. Discussion Notes I discussed with the patient the importance of following up with her oncology and pulmonology teams to manage her lung adenocarcinoma and COPD. We reviewed her current medications, including the continuation of Lasix and the initiation of Xarelto for her pulmonary embolism. I emphasized the need for regular monitoring of her blood glucose levels due to her diabetes and the impact of prednisone therapy. The patient was advised to have a chest x-ray today to evaluate her respiratory status and to continue her wound care regimen for the coccyx wound. Patient Instructions - Follow up with oncology and pulmonolog y as scheduled. - Continue taking Lasix and Xarelto as p rescribed. - Monitor blood glucose levels regularly , especially while on prednisone. - Get a chest x-ray today to check for p leural effusion. - cont to monitor coccyx region [facility] Medical History Supplemental oxygen dependent Obesity hypoventilation syndrome COPD (chronic obstructive pulmonary disease) Recurrent hernia Urinary tract infection due to ESBL Klebsiella Chronic lung disease Chronic lung disease Chronic lung disease BAHMAN (generalized anxiety disorder) Cocaine use disorder Cocaine abuse GERD (gastroesophageal reflux disease) Constipation Non-insulin dependent type 2 diabetes mellitus HENRY (obstructive sleep apnea) Acute exacerbation of chronic obstructive airways disease Asthma with exacerbation Chronic lung disease Hypoxic respiratory failure Nocturnal hypoxemia Diabetes mellitus COPD exacerbation Crack cocaine use Hyperkalemia Metabolic acidosis Leukocytosis Chest discomfort Chronic renal failure, stage 2 (mild) SOB (shortness of breath) Asthma Smoker Rotator cuff tendonitis GERD (gastroesophageal reflux disease) Chronic idiopathic constipation Bustos's esophagus Depression High triglycerides Gastroparesis Carpal tunnel syndrome of right wrist Nausea & vomiting Hernia Acute and chronic respiratory failure, unspecified whether with hypoxia or hypercapnia HTN (hypertension) Obesity (BMI 30-39.9) Knee pain, bilateral Surgical History History of cholecystectomy (~1988) History of carpal tunnel release Hx of tubal ligation History of pubovaginal sling (~2015) History of umbilical hernia repair (~2001) Hx of section History of open reduction and internal fixation (ORIF) procedure History of esophagogastroduodenoscopy (EGD) Family History Father Heart disease HENRY (obstructive sleep apnea) Family history of breast cancer Mother Asthma Emphysema, unspecified Bronchitis Smoker Alcoholism Bone marrow disease Maternal Grandmother Diabetes Social History Household Members: Unknown / Unable to assess Household Members Other:: daughter Housing: House Housing Other:: 3 family house Are you a primary care navigator to a significant other at home: No Do you presently have visiting nurse or other home services: Yes Alcohol intake: never Comment: refusing socks Patient Tobacco Use Status: Tobacco use Unknown Tobacco use type: Cigarette Cigarette Packs Per Day: 0.5 Cigarettes Per Day: 10 Years Smoked: 40 Packs Per Year: 20 Packs per year/per ci.00 e-Cigarette/Vaping Use: Currently Using Second Hand Smoke Exposure: Yes Substance Use Type: Crack/Cocaine Advance Directives Date on File: 12/19/23 service: No Current occupational status: disabled 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 1. Little interest or pleasure in doing things: several days 2. Feeling down, depressed, or hopeless: several days 3. Trouble falling or staying asleep, or sleeping too much: nearly every day 4. Feeling tired or having little energy: nearly every day 5. Poor appetite or overeating: nearly every day 6. Feeling bad about yourself - or that you are a failure or have let yourself or your family down: nearly every day 7. Trouble concentrating on things, such as reading the newspaper or watching television: nearly every day 8. Moving or speaking so slowly that other people could have noticed. Or the opposite - being so fidgety or restless that you have been moving around a lot more than usual: nearly every day 9. Thoughts that you would be better off or of hurting yourself in some way: not at all Total score: 20 Depression Screening Interpretation: Positive (denies any active si or hi) Depression Screening Follow-up: Existing condition and In treatment Depression Screening Done: Yes Source: Developed by Drs. Dalton Nelson, Zoila Dowell, Parveen Erazo and colleagues, with an educational georgiana from [employer]. Thrive Questionnaire Date Thrive assessed: 04/23/24 I am a: Patient What is your living situation today?: I have a steady place to live Within the past 12 months, did the food you bought not last and you didn't have the money to get more?: I choose not to answer this question Within the past 12 months, did you worry whether your food would run out before you got money to buy more?: Sometimes True Do you have trouble paying for medicines?: No Do you have trouble getting transportation to medical appointments?: No Do you have trouble paying your heating and electricity bill?: No Do you have trouble taking care of your child, family member or friend?: No Do you have trouble with day-to-day activities such as bathing, preparing meals, shopping, managing finances, etc.?: Yes Are you currently unemployed and looking for a job?: No Are you interested in more education?: No Please select the resources that you would like help with: Food Currently or been in a relationship where the following occur: No concerns reported and I choose not to answer THRIVE Score: 1 AUDIT C Alcohol Use Questionnaire (AUDIT-C) 1. How often do you have a drink containing alcohol?: Never Total Score: 0 Score Reviewed/Action Taken: Yes BAHMAN-7 AMB Questionnaire BAHMAN-7 Date BAHMAN - 7 assessed: 04/23/24 Feeling nervous, anxious, or on edge: 3 = Nearly every day Not being able to stop or control worryin = Nearly every day Worrying too much about different things: 3 = Nearly every day Trouble relaxin = Nearly every day Being so restless that it is hard to sit still: 3 = Nearly every day Becoming easily annoyed or irritable: 3 = Nearly every day Feeling afraid as if something awful might happen: 3 = Nearly every day Total BAHMAN-7 score (0-4 normal; 5-9 mild; 10-14 moderate; 15-21 severe): 21 Source: Developed by Drs. Dalton Nelson, Zoila Dowell, Parveen Erazo and colleagues, with an educational georgiana from [employer]. BAHMAN-7 Assessment Billing BAHMAN-7 Assessment Tool: BAHMAN-7 Assessment 17015 (denies any si or hi, has a therapist/psych team) Physical exam (Primary Care) Vital Signs: Last Vital Signs Pulse 90 04/21/25 12:50 Resp 16 04/21/25 12:50 BP 110/62 04/21/25 12:50 Pulse Ox 96 04/21/25 12:50 Oxygen Delivery Method Nasal Cannula 04/21/25 12:50 BMI result Body Mass Index 37.4 Tobacco/Smoking Status: Tobacco use Status Tobacco use date assessed 04/21/25 04/21/25 12:56 Patient Tobacco Use Status Tobacco use Unknown 04/21/25 12:48 Tobacco use type Cigarette 04/21/25 12:48 e-Cigarette/Vaping Use Currently Using 04/21/25 12:48 PHQ-9: PHQ-9 Score PHQ-9: Total score 20 04/21/25 13:26 Depression Screening Interpretation: Positive (denies any active si or hi) Depression Screening Follow-up: Existing condition and In treatment Thrive Assessment: Date of Thrive Assessment Date Thrive assessed 04/23/24 04/21/25 12:48 Currently or been in a relationship where the following occur: No concerns rep orted and I choose not to answer Coding Level of Care Code Est Pt Level 4 (60254) Diagnoses Congestive heart failure, unspecified HF chronicity, unspecified heart failure type I50.9 Heart failure chronicity: unspecified Heart failure type: unspecified Lung cancer C34.90 Pleural effusion J90 Elevated brain natriuretic peptide (BNP) level R79.89 Additional Codes BAHMAN-7 Assessment Billing - BAHMAN-7 Assessment Tool: BAHMAN-7 Assessment 63944 ([id number]) Assessment & Plan Assessment & Plan (1) CHF (congestive heart failure): Code(s): I50.9 - Heart failure, unspecified Category: Medical Qualifiers: Heart failure chronicity: unspecified Heart failure type: unspecified Qualified Code(s): I50.9 - Heart failure, unspecified (2) Lung cancer: Code(s): C34.90 - Malignant neoplasm of unspecified part of unspecified bronchus or lung Category: Medical (3) Pleural effusion: Comment: malignant Code(s): J90 - Pleural effusion, not elsewhere classified Category: Medical (4) Elevated brain natriuretic peptide (BNP) level: Code(s): R79.89 - Other specified abnormal findings of blood chemistry Category: Medical Plan . Orders: Orders Complete Blood Count Auto Diff Today C34.90 - Malignant neoplasm of unspecified part of unspecified bronchus or lung, I50.9 - Heart failure, unspecified, J90 - Pleural effusion, not elsewhere classified Comprehensive Met. Panel Today C34.90 - Malignant neoplasm of unspecified part of unspecified bronchus or lung, I50.9 - Heart failure, unspecified, J90 - Pleural effusion, not elsewhere classified TSH reflex Free T4 Today C34.90 - Malignant neoplasm of unspecified part of unspecified bronchus or lung, I50.9 - Heart failure, unspecified, J90 - Pleural effusion, not elsewhere classified UA CC w/rflx Micro + Cult Today C34.90 - Malignant neoplasm of unspecified part of unspecified bronchus or lung, I50.9 - Heart failure, unspecified, J90 - Pleural effusion, not elsewhere classified NT Pro B Type Natriuretic Pept Today I50.9 - Heart failure, unspecified, R79.89 - Other specified abnormal findings of blood chemistry XR chest 2V Today J90 - Pleural effusion, not elsewhere classified Medications: Discontinued aspirin Discontinued Reason: Doctor's Order 81 mg PO DAILY 90 days 90 tabs 1RF losartan Discontinued Reason: Doctor's Order 25 mg PO DAILY 60 tabs 0RF
[2025-04-21 12:50] VITALS: BP 110/62; PULSE 90; RESP 16; O2SAT 96; BMI 37.4
== END 2025-04-21 13:57 | disposition home or self-care (01) ==
LOC: HO.HMCC 12:41
PROVIDERS: PCP Nurse Practitioner Family; Visit Provider Nurse Practitioner Family
DX: I50.9 Heart failure, unspecified (principal); C34.90 Malignant neoplasm of unspecified part of unspecified bronchus or lung; J90 Pleural effusion, not elsewhere classified; R79.89 Other specified abnormal findings of blood chemistry

== ENCOUNTER → 2025-04-21 13:29 | Outpatient (BNV) | payer OTHER, SELFPAY | PROVIDERS: PCP Nurse Practitioner Family; Visit Provider Radiology Diagnostic Radiology | DX: J90 Pleural effusion, not elsewhere classified (principal) | CPT/HCPCS: 71046 ==